=== PATIENT | female | born 1950 | race Caucasian/White ===

== ENCOUNTER 2017-12-16 07:51 | Emergency (ER) | payer MEDICARE, MEDICAID, SELFPAY ==
[2017-12-16 07:52] VITALS: BP 200/83; PULSE 86; RESP 24; TEMP 36.8; O2SAT 96; BMI 38.6
--- NOTE | 2017-12-16 07:55 | NURSING ---
NO OLD EKGS
--- NOTE | 2017-12-16 08:03 | EKG12_ITS ---
Test Reason : CP Blood Pressure : / mmHG Vent. Rate : 084 BPM Atrial Rate : 084 BPM P-R Int : 156 ms QRS Dur : 124 ms QT Int : 410 ms P-R-T Axes : 054 -44 039 degrees QTc Int : 484 ms Normal sinus rhythm Left axis deviation Right bundle branch block Minimal voltage criteria for LVH, may be normal variant Septal infarct , age undetermined Abnormal ECG Confirmed by AUDIE MCARTHUR, DOMINIC ([id number]), desk editor JOSE SMITH ([id number]) on 12/17/2017 2:41:45 PM Referred By: BETSY Confirmed By:DOMINIC BRONSON MD
--- NOTE | 2017-12-16 08:03 | RAD_ITS ---
STUDY: X-RAY CHEST REASON FOR EXAM: Female, 67 years old. Worsening shortness of breath. TECHNIQUE: Single AP portable view of the chest. COMPARISON: None. FINDINGS: EKG electrodes are seen. The lungs are clear and expanded. There is no demonstrated pleural abnormality. Normal size heart. Normal mediastinum and yris. Normal visualized pulmonary arteries. Normal visualized aortic arch and descending thoracic aorta. There are degenerative changes of the visualized thoracic spine. Normal visualized ribs, clavicles, and shoulders. There is no demonstrated abnormality of the visualized soft tissue structures of the upper abdomen. RAD/Chest 1 View (Portable) IMPRESSION: Normal x-ray examination of the chest. Electronically Signed: Roel Moreno MD at 8:36 EDT Tel [phone], Service support ,
--- NOTE | 2017-12-16 08:07 | ED.DCSUM_ITS ---
- ER Visit Summary Date of Service: 12/16/17 Chief Complaint: Chest pain History of Present Illness: The patient is a 67 F who presents with chest pain as well as shortness of breath. She states it started 3 days ago. It is an intermittent sharp pain in her substernal area. Nothing really makes it better or worse. She states it is mild currently but it was worse over the weekend. She also feels short of breath. She also complains of a headache at this time. She has a history of coronary artery disease. She has 2 stents placed. Last one was placed in 2017. She has been medication compliant. 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 Sometimes she states the pain goes down into her abdomen. He s tates that this is worse when she eats. Physical Examination: Vital signs reviewed. HEENT exam unremarkable. Heart is regular rate and rhythm without murmurs. Lungs are clear to auscultation. Abdomen is soft and nontender. Extremities reveal no edema. Peripheral pulses are equal. Skin exam normal. Neurologic exam normal. Test Results: EKG was sinus rhythm with a rate of 84. Nonspecific ST and T wave changes noted. Chest x-ray normal. White blood cell count 13.1. Glucose 117. Liver enzymes and lipase normal. Troponin is normal. D-dimer normal. Emergency Department Course and Treatment: She was not given aspirin because of an allergy. She was actually given a GI cocktail she feels much better. I feel that this is likely gastritis. With a normal enzymes, as well as her EKG, I do not feel that this is cardiac in nature. I will give her omeprazole that she can take at home daily. She will follow-up with her primary care physician and information systems administrator Treatment Plan: [] Disposition: Discharge Impression: Gastritis This note was generated with [employer]handy[employer] dictation software. It may contain incorrect words, spelling, and punctuation that were not noted in review of the chart prior to signing ED Disposition - Plan for ED Patient: Chief Complaint: Chest Pain Referrals: [facility] Doctor,Out of [NON-STAFF] -
[2017-12-16 08:12] VITALS: O2SAT 97
[2017-12-16 08:18] LABS: Absolute Lymphocyte Count 2.55 X10^3/ul (0.83-4.51); Basophil# 0.05 X10^3/uL; Basophil% 0.4 % (0-1); Eosinophil# 0.37 X10^3/uL; Eosinophils% 2.8 % (0-5); Hematocrit 42.3 % (37-47); Hemoglobin 13.8 g/dl (12.0-15.0); Lymphocyte # 2.55 X10^3/ul (4.0); Lymphocyte % 19.5 % (19-41); Mean Corp Hgb Conc 32.6 g/gl (32-36); Mean Corpuscular Hgb 29.9 pg (27.0-32.0); Mean Corpuscular Volume 91.8 fL (81-99); Mean Platelet Vol. 10.1 fl (6.2-12.0); Monocyte% 7.6 % (0-10); Neutrophil # 9.01 X10^3/uL (2.7-7.7); Neutrophil % 68.9 % (47-70); POSITIVE COUNT NO; POSITIVE DIFFERENTIAL NO; POSITIVE MORPHOLOGY NO; Platelet Count 324 K/mm3 (150-450); RBC Distribution Width CV 13.5 % (11.6-14.6); RBC Distribution Width SD 44.5 fl (35.1-43.9); Red Blood Count 4.61 M/mm3 (4.2-5.4); White Blood Count 13.1 K/mm3 (4.4-11.0)
[2017-12-16 08:27] LABS: D-Dimer Quantitative (DVT/PE) < 0.27 FEU/ug/m (0.27-0.49)
[2017-12-16 08:29] LABS: AST(SGOT) 22 U/L (15-37); Alanine Aminotransfer ALT/SGPT 32 U/L (13-56); Albumin, Serum 3.5 g/dL (3.2-5.0); Alkaline Phosphatase 100 U/L (45-117); Bilirubin, Direct 0.13 mg/dL (0.00-0.30); Globulin 4.2 g/dL (2.2-4.2); Protein, Total 7.7 g/dL (6.4-8.2)
[2017-12-16] MEDS: Acetaminophen 500 MG Tablet 1000 MG PO (08:31)
[2017-12-16 08:35] LABS: Anion Gap 7 (5-15); BUN 11 mg/dL (7-18); BUN/Creat Ratio 12.5 RATIO (10-20); Calcium,Total 8.9 mg/dL (8.5-10.1); Chloride 104 mmol/L (98-107); Creatinine, Serum 0.88 mg/dL (0.55-1.02); EST Glomerular Filtration Rate 68 mL/min (>60); Est Glom Filt Rate - Afr Amer 82 mL/min (>60); Estimated Creatinine Clearance 49.74 ml/min; Glucose 117 mg/dL (74-106); Lipase 67 U/L (73-393); Sodium Level 138 mmol/L (136-145)
[2017-12-16 08:52] VITALS: BP 142/76; PULSE 70; RESP 18; O2SAT 94
[2017-12-16 09:00] VITALS: BP 160/73; PULSE 75; RESP 12; O2SAT 94
[2017-12-16] MEDS: Mag Hydrox/Al Hydrox/Simeth 30 ML UDC PO (09:24)
--- NOTE | 2017-12-16 09:42 | DCINST.ED_ITS ---
ED Disposition - Plan for ED Patient: Disposition: Home or Assisted Living Chief Complaint: Chest Pain Instructions: ED Gastritis Prescriptions: Omeprazole 20 mg PO DAILY #30 capsule. Referrals: [facility] Doctor,Out of [NON-STAFF] -
== END 2017-12-16 10:05 | disposition home or self-care (01) ==
PROVIDERS: Emergency Provider Emergency Medicine
DX: K29.70 Gastritis, unspecified, without bleeding (principal); R06.00 Dyspnea, unspecified; R51 Headache; I25.10 Atherosclerotic heart disease of native coronary artery without angina pectoris; I25.2 Old myocardial infarction; E11.9 Type 2 diabetes mellitus without complications; Z95.5 Presence of coronary angioplasty implant and graft; Z87.891 Personal history of nicotine dependence
CPT/HCPCS: 71045; 80048; 80076; 83690; 84484; 85025; 85379; 93005; 99285

== ENCOUNTER 2018-03-12 15:53 | Emergency (ER) | payer MEDICARE, MEDICAID, SELFPAY ==
[2018-03-12 15:54] VITALS: BP 157/99; PULSE 97; RESP 18; TEMP 37.2; O2SAT 99; BMI 36.6
--- NOTE | 2018-03-12 16:31 | ED.VISSUMM ---
- ER Visit Summary Date of Service: 03/12/18 Chief Complaint: [Cough, sore throat, congestion] History of Present Illness: The patient is a 67 F [presents to the emergency department with multiple complaints times 3 days. Patient states that she had a fever when illness for started 3 days ago as well as some chills and sweats. Patient had a headache yesterday but that is now resolved. Patient complains of sweats. She complains of a sore throat. She complains of cough that is nonproductive. She denies sick contacts. Patient moved to the area 6 months ago and does not have a primary care physician locally. Patient does have a history of coronary artery disease, diabetes, hypertension, hypothyroidism.] Physical Examination: [HEENT-PERRLA, EOMI. Cranial nerves II through XII grossly intact. TMs clear. Mucous membranes moist. No adenopathy. Cardiovascular-regular rate and rhythm without murmur or ectopy Lungs-clear to auscultation, chest wall stable without crepitus or subcu emphysema Abdomen-normoactive bowel sounds, soft, nontender, no rebound or rigidity, no peritoneal signs. Extremities-intact ?4, normal range of motion, normal pulses, atraumatic] Test Results: [None indicated] Emergency Department Course and Treatment: [Patient was dispensed an albuterol MDI] Treatment Plan: [I suspect patient likely has a viral upper respiratory infection therefore I do not feel antibiotics are indicated. Patient will be given an MDI and a prescription for Tessalon Perles] Disposition: [Discharged home in stable condition] Impression: [Viral URI ] This note was generated with Get[employer]ippy dictation software. It may contain incorrect words, spelling, and punctuation that were not noted in review of the chart prior to signing ED Disposition - Plan for ED Patient: Chief Complaint: Cold Sx Referrals: Care Physician,No Primary [Primary Care Provider] -
--- NOTE | 2018-03-12 16:33 | ED.DEP ---
ED Disposition - Plan for ED Patient: Chief Complaint: Cold Sx Instructions: ED Upper Resp Infec No Abx Tx Prescriptions: Benzonatate [Tessalon Perle] 200 mg PO TID PRN PRN #20 cap PRN Reason: Cough Referrals: Care Physician,No Primary [Primary Care Provider] - Nathan Alcantara MD [STAFF PHYSICIAN] - 3-5 Days
[2018-03-12 16:59] VITALS: PULSE 82; RESP 19; O2SAT 96
== END 2018-03-12 17:28 | disposition home or self-care (01) ==
LOC: ED 17:21
PROVIDERS: Emergency Provider Emergency Medicine
DX: J06.9 Acute upper respiratory infection, unspecified (principal); I25.10 Atherosclerotic heart disease of native coronary artery without angina pectoris; E11.9 Type 2 diabetes mellitus without complications; I10 Essential (primary) hypertension; E03.9 Hypothyroidism, unspecified; Z79.4 Long term (current) use of insulin; Z79.899 Other long term (current) drug therapy; Z87.891 Personal history of nicotine dependence
CPT/HCPCS: 99282

== ENCOUNTER 2018-03-13 07:21 | Emergency (ER) | payer MEDICARE, MEDICAID, SELFPAY ==
[2018-03-12 15:54] VITALS: BMI 36.6
[2018-03-13 07:22] VITALS: BP 192/83; PULSE 83; RESP 18; TEMP 36.9; O2SAT 97; BMI 38.5
--- NOTE | 2018-03-13 07:31 | RAD_ITS ---
STUDY: X-RAY CHEST REASON FOR EXAM: Female, 67 years old. Chest pain and cough TECHNIQUE: Single frontal view of the chest. COMPARISON: 12/16/2017 FINDINGS: The lungs are clear and expanded. There is no demonstrated pleural abnormality. Normal size heart. Normal mediastinum and yris. Normal visualized pulmonary arteries. Normal visualized aortic arch and descending thoracic aorta. Normal visualized thoracic spine. Normal visualized ribs, clavicles, and shoulders. There is no demonstrated abnormality of the visualized soft tissue structures of the upper abdomen. RAD/Chest 1 View (Portable) IMPRESSION: Normal x-ray examination of the chest. Electronically Signed: aWnder Lopez MD at 7:58 EST Tel , Service support ,
--- NOTE | 2018-03-13 07:31 | EKG12_ITS ---
Test Reason : SOB Blood Pressure : / mmHG Vent. Rate : 082 BPM Atrial Rate : 082 BPM P-R Int : 152 ms QRS Dur : 128 ms QT Int : 400 ms P-R-T Axes : 061 -46 032 degrees QTc Int : 467 ms Normal sinus rhythm Right bundle branch block Left anterior fascicular block Bifascicular block Moderate voltage criteria for LVH, may be normal variant Abnormal ECG Confirmed by DANIELLE MCARTHUR, ESTHELA ([id number]), slot editor JOSE SMITH ([id number]) on 03/17/2018 1:14:27 PM Referred By: GISSELLE Confirmed By:ESTHELA SANTOS MD
--- NOTE | 2018-03-13 07:33 | ED.VISSUMM ---
- ER Visit Summary Date of Service: 03/13/18 Chief Complaint: Nasal congestion History of Present Illness: The patient is a 67 F with nasal congestion. She was seen in this ED yesterday. It was thought that she had a viral illness. She was prescribed albuterol and Tessalon Perles. They are not helping with her symptoms. Her main concern is nasal congestion. She says she cannot breathe through her nose and it causes her difficulty sleeping. She says she did not sleep at all last night despite taking her medications. She is also complaining of some midsternal chest pain. She said this has been constant for the past 3 days. She feels it was related to coughing. She does have a history of diabetes, hypertension, and coronary disease. She never had pain like this before. It does not feel like her prior angina. Denies history of PE. Physical Examination: Hypertensive but otherwise vitals unremarkable. Afebrile. No acute distress. Sitting comfortably. Breathing and speaking comfortably. HEENT exam unremarked. Heart regular. Lungs clear. Extremities nontender with no edema. Good pulses. Good skin. No diaphoresis or pallor. Test Results: EKG, chest x-ray, labs pending Emergency Department Course and Treatment: I believe the patient likely has an upper respiratory infection. It seems after speaking with her that her main concern is nasal congestion. She has not taken anything for nasal congestion. She was treated with Afrin here. Although her chest pain is atypical and likely related to bronchitis or a viral infection, given her risk factors, I did check EKG, chest x-ray, labs. Will reassess. Workup is unremarkable. Patient feels better after Afrin. Breathing more comfortably. Repeat blood pressure 140/73. White count 17.6, but otherwise workup normal. Patient will continue Afrin at home. Repeat blood pressure 140/73, heart rate 76, respiratory rate 16. Patient has no other signs of sepsis. She did request antibiotics. After discussion of the risks, she would like to try antibiotics. Will prescribe doxycycline. Return for any new or worsening issues. Treatment Plan: As above Disposition: Discharge Impression: 1. Acute bronchitis 2. Leukocytosis This note was generated with [employer] software. It may contain incorrect words, spelling, and punctuation that were not noted in review of the chart prior to signing ED Disposition - Plan for ED Patient: Chief Complaint: Shortness of Breath Referrals: Care Physician,No Primary [Primary Care Provider] -
[2018-03-13] MEDS: Oxymetazoline 0.05% 1 SPRAY SPRAY.BTL 2 SPRAY NASAL (08:04)
[2018-03-13 08:06] VITALS: BP 140/73; PULSE 76; RESP 16; TEMP 36.6; O2SAT 95; O2SAT 96
[2018-03-13 08:09] LABS: Absolute Lymphocyte Count 2.66 X10^3/ul (0.83-4.51); Absolute Neutrophil Count 12.9 X10^3/uL (2.0-7.7); Basophil# 0.05 X10^3/uL; Basophil% 0.3 % (0-1); Eosinophil# 0.36 X10^3/uL; Hematocrit 43.2 % (37-47); Lymphocyte # 2.66 X10^3/ul (4.0); Lymphocyte % 15.1 % (19-41); Mean Corp Hgb Conc 32.4 g/gl (32-36); Mean Corpuscular Volume 92.7 fL (81-99); Mean Platelet Vol. 10.2 fl (6.2-12.0); Monocyte# 1.51 X10^3/uL; Monocyte% 8.6 % (0-10); Neutrophil # 12.92 X10^3/uL (2.7-7.7); Neutrophil % 73.4 % (47-70); Platelet Count 292 K/mm3 (150-450); RBC Distribution Width CV 13.3 % (11.6-14.6); RBC Distribution Width SD 45.3 fl (35.1-43.9); Red Blood Count 4.66 M/mm3 (4.2-5.4); White Blood Count 17.6 K/mm3 (4.4-11.0)
[2018-03-13 08:11] LABS: Differential Indicated SCAN CRITERIA MET; POSITIVE COUNT NO; POSITIVE DIFFERENTIAL YES; POSITIVE MORPHOLOGY NO
[2018-03-13 08:23] LABS: Anion Gap 7 (5-15); BUN 14 mg/dL (7-18); BUN/Creat Ratio 16.8 RATIO (10-20); Calcium,Total 9.3 mg/dL (8.5-10.1); Chloride 101 mmol/L (98-107); Creatinine, Serum 0.83 mg/dL (0.55-1.02); EST Glomerular Filtration Rate 73 mL/min (>60); Est Glom Filt Rate - Afr Amer 88 mL/min (>60); Estimated Creatinine Clearance 52.73 ml/min; Glucose 128 mg/dL (74-106); Potassium 4.3 mmol/L (3.5-5.1); Sodium Level 136 mmol/L (136-145)
--- NOTE | 2018-03-13 08:40 | ED.DEP ---
ED Disposition - Plan for ED Patient: Chief Complaint: Shortness of Breath Instructions: ED Upper Resp Infec Abx Tx Prescriptions: Doxycycline 100 mg PO BID #14 cap
[2018-03-13 08:56] VITALS: BP 143/68; PULSE 82; RESP 17; O2SAT 96
[2018-03-14 14:17] LABS: Pathologist Review Reviewed
== END 2018-03-13 08:57 | disposition home or self-care (01) ==
PROVIDERS: Emergency Provider Emergency Medicine
DX: J20.9 Acute bronchitis, unspecified (principal); D72.829 Elevated white blood cell count, unspecified; I45.10 Unspecified right bundle-branch block; I44.4 Left anterior fascicular block; I25.10 Atherosclerotic heart disease of native coronary artery without angina pectoris; E11.9 Type 2 diabetes mellitus without complications; I10 Essential (primary) hypertension; E03.9 Hypothyroidism, unspecified; Z79.4 Long term (current) use of insulin; Z79.899 Other long term (current) drug therapy; Z87.891 Personal history of nicotine dependence
CPT/HCPCS: 71045; 80048; 84484; 85025; 93005; 99284; A4216

== ENCOUNTER 2018-09-02 15:19 | Emergency (ER) | payer MEDICARE, MEDICAID, SELFPAY ==
[2018-09-02 15:19] VITALS: BP 159/72; PULSE 91; RESP 18; TEMP 36.4; O2SAT 96; BMI 38.5
--- NOTE | 2018-09-02 15:58 | EKG12_ITS ---
Test Reason : DIZZINESS Blood Pressure : / mmHG Vent. Rate : 077 BPM Atrial Rate : 077 BPM P-R Int : 158 ms QRS Dur : 126 ms QT Int : 424 ms P-R-T Axes : 051 -52 017 degrees QTc Int : 479 ms Normal sinus rhythm Right bundle branch block Left anterior fascicular block Bifascicular block Minimal voltage criteria for LVH, may be normal variant Abnormal ECG Confirmed by STEFANY ÁLVAREZ ([id number]), movie editor JANEL MCCLURE ([id number]) on 09/08/2018 10:15:28 AM Referred By: DEBBIE Confirmed By:STEFANY ÁLVAREZ
[2018-09-02 16:58] LABS: Anion Gap 6 (5-15); BUN 16 mg/dL (7-18); BUN/Creat Ratio 16.3 RATIO (10-20); Calcium,Total 9.3 mg/dL (8.5-10.1); Chloride 104 mmol/L (98-107); Creatinine, Serum 0.98 mg/dL (0.55-1.02); EST Glomerular Filtration Rate 60 mL/min (>60); Est Glom Filt Rate - Afr Amer 73 mL/min (>60); Estimated Creatinine Clearance 44.66 ml/min; Glucose 147 mg/dL (74-106); Potassium 4.3 mmol/L (3.5-5.1); Sodium Level 139 mmol/L (136-145)
[2018-09-02 16:59] LABS: Basophil# 0.03 X10^3/uL; Basophil% 0.2 % (0-1); Eosinophil# 0.26 X10^3/uL; Hematocrit 44.1 % (37-47); Hemoglobin 14.3 g/dl (12.0-15.0); Lymphocyte % 21.7 % (19-41); Mean Corp Hgb Conc 32.4 g/gl (32-36); Mean Corpuscular Volume 92.5 fL (81-99); Mean Platelet Vol. 10.4 fl (6.2-12.0); Monocyte# 0.69 X10^3/uL; Monocyte% 5.4 % (0-10); Neutrophil # 9.01 X10^3/uL (2.7-7.7); Neutrophil % 69.9 % (47-70); Platelet Count 313 K/mm3 (150-450); RBC Distribution Width CV 13.7 % (11.6-14.6); RBC Distribution Width SD 45.8 fl (35.1-43.9); Red Blood Count 4.77 M/mm3 (4.2-5.4); White Blood Count 12.9 K/mm3 (4.4-11.0)
[2018-09-02 17:04] VITALS: BP 152/78; PULSE 80; RESP 14; O2SAT 97
[2018-09-02 17:10] LABS: Partial Thromboplast Time 26.9 Seconds (24.1-36.2); Prothrombin Time (Protime)PT. 12.7 SECONDS (11.7-14.9)
--- NOTE | 2018-09-02 17:13 | ED.VISSUMM ---
- ER Visit Summary Date of Service: 09/02/18 Chief Complaint: Dizziness and bilateral leg swelling History of Present Illness: The patient is a 67 F who presents with dizziness and bilateral lower extremity swelling that has been getting worse over the past 3 days. Patient states she has some cramping pain in her calves posteriorly that come and go. Patient describes it as a annoying pain. Patient states nothing makes it better or worse. Patient states her dizziness feels like a lightheadedness that is worse when she stands up. Patient denies any hearing changes. Patient denies any spinning sensation. Patient denies any headaches. Patient states she feels slightly weak when she first stands up. Physical Examination: Vital signs are stable. Patient is afebrile. Patient is in no acute distress. Oral mucosa is pink and moist. Neck is supple. Trachea is midline. There is no JVD noted. Heart was regular rate and rhythm. Lungs are clear and equal bilaterally. Abdomen is soft. Bowel sounds are normal. There is no tenderness. There is no guarding or rebound noted. Cranial nerves II through XII are intact. There are no focal motor or sensory deficits noted. Extremities are intact. There is no edema over the lower extremities. There is no calf tenderness noted. Test Results: EKG showed normal sinus rhythm with a rate of 77. There are no acute ST or T wave changes. There is a right bundle branch block and left anterior fascicular block noted. There is some left ventricular hypertrophy noted. This was unchanged compared to previous EKG dated 03/13/2018. CBC, basic metabolic profile, PT with INR, and PTT were obtained and were all essentially within normal limits. D-dimer was less than 0.27. Emergency Department Course and Treatment: Patient felt better on reevaluation. Patient was able to ambulate without difficulty. Orthostatic vital signs were obtained and were normal. Patient was instructed to follow-up with her primary care physician in 5 to 7 days. Patient understood and was agreeable with the plan. All questions were answered. Disposition: Discharge home Impression: Dizziness This note was generated with [employer] software. It may contain incorrect words, spelling, and punctuation that were not noted in review of the chart prior to signing ED Disposition - Plan for ED Patient: Disposition: Home or Assisted Living Diagnosis: Dizziness Instructions: DIZZINESS, Unk Cause Additional Instructions: Follow-up with your primary care physician in 5 to 7 days for further evaluation. Return to the emergency department if worse in any way.
[2018-09-02 17:14] LABS: POSITIVE COUNT NO; POSITIVE DIFFERENTIAL NO; POSITIVE MORPHOLOGY NO
--- NOTE | 2018-09-02 17:20 | RAD_ITS ---
STUDY: X-RAY CHEST REASON FOR EXAM: Female, 67 years old. Chest pain TECHNIQUE: PA and lateral views of the chest COMPARISON: X-Ray Chest March 13, 2018 FINDINGS: The lungs are clear. There are no pleural effusions. There is no pneumothorax. The heart is normal in size. The visualized osseous structures are within normal limits. RAD/Chest PA and Lateral IMPRESSION: No acute thoracic pathology. Electronically Signed: Malachi Shelby, at 17:40 EDT Tel , Service support ,
[2018-09-02 18:11] LABS: D-Dimer Quantitative (DVT/PE) < 0.27 FEU/ug/m (0.27-0.49)
--- NOTE | 2018-09-02 18:12 | NURSING ---
CALLED [facility], TALKED TO JACINTA. SHE CONTACTED SOMEONE AND WAS TOLD THEY WOULD PLACE HER TONIGHT.
[2018-09-02 19:00] VITALS: BP 118/68; PULSE 72; RESP 16; O2SAT 96
[2018-09-02 19:44] VITALS: BP 112/66; BP 116/68; BP 118/68; PULSE 70; PULSE 72; PULSE 74
[2018-09-02 19:45] VITALS: BP 116/68
== END 2018-09-02 19:46 | disposition home or self-care (01) ==
PROVIDERS: Emergency Provider Emergency Medicine
DX: R42 Dizziness and giddiness (principal); M79.89 Other specified soft tissue disorders; R68.83 Chills (without fever); R07.9 Chest pain, unspecified; R06.00 Dyspnea, unspecified; M54.9 Dorsalgia, unspecified; R53.1 Weakness; I45.10 Unspecified right bundle-branch block; I44.4 Left anterior fascicular block; I51.7 Cardiomegaly; I25.10 Atherosclerotic heart disease of native coronary artery without angina pectoris; E11.9 Type 2 diabetes mellitus without complications; E03.9 Hypothyroidism, unspecified; Z79.4 Long term (current) use of insulin; Z79.899 Other long term (current) drug therapy
CPT/HCPCS: 71046; 80048; 85025; 85379; 85610; 85730; 93005; 99285; A4216

== ENCOUNTER 2019-04-12 18:46 | Emergency (ER) | payer MEDICARE, MEDICAID, SELFPAY ==
[2019-04-12 18:47] VITALS: BP 153/80; PULSE 116; RESP 18; TEMP 37.3; O2SAT 93; BMI 36.6
--- NOTE | 2019-04-12 20:20 | RAD_ITS ---
STUDY: X-RAY CHEST REASON FOR EXAM: Female, 68 years old. Cold like symptoms since Saturday. TECHNIQUE: PA and lateral views of the chest. COMPARISON: September 02, 2018. FINDINGS: The lungs are clear and expanded. There is no demonstrated pleural abnormality. Normal size heart. Normal mediastinum and yris. Normal visualized pulmonary arteries. Normal visualized aortic arch and descending thoracic aorta. Normal visualized thoracic spine. Normal visualized ribs, clavicles, and shoulders. There is no demonstrated abnormality of the visualized soft tissue structures of the upper abdomen. RAD/Chest PA and Lateral IMPRESSION: No acute cardiopulmonary disease or major interval change. Electronically Signed: Carloz Guevara DO at 20:57 EST Tel [phone], Service support ,
--- NOTE | 2019-04-12 20:22 | ED.DCSUM_ITS ---
History of Present Illness Chief Complaint: Cold Sx Informant: Patient Onset: Days - 2 days Context: Gradual Onset Current Severity: Mild Maximum Severity: Moderate Narrative: Patient presents with flulike symptoms that are been ongoing for the past day and a half. She describes body aches, sore throat, mild cough. She does not believe she has had a fever but states that she will break out in sweats. She did not get a flu shot. - Past Medical History (1) Hypertension Status: Chronic (2) Myocardial infarction Status: Chronic (3) H/O heart artery stent Status: Chronic (4) Diabetes Status: Chronic (5) Hypothyroid Status: Chronic Past Medical History - Allergies and Home Meds Allergies/Adverse Reactions: Allergies dulaglutide [From Trulicity] Allergy (Verified 09/02/18 15:21) Hives glipizide Allergy (Verified 09/02/18 15:21) Hives metformin Allergy (Verified 09/02/18 15:21) Hives Penicillins [PCN] Allergy (Verified 09/02/18 15:21) Hives Primary Care Physician: Care Physician,No Primary [Primary Care Provider] - Prior records reviewed: Yes Smoking Status: Former smoker Review of Systems General: Reports: Sweats Eyes: Denies: Visual changes - bilaterally ENT: Reports: Sore throat Cardiovascular: Denies: Chest pain Respiratory: Reports: Dyspnea, Cough. Denies: Sputum Gastrointestinal: Reports: Nausea. Denies: Vomiting Musculoskeletal: Reports: Myalgias Skin: Denies: Rash Neurological: Reports: Headache Allergy: Denies: Uticaria Physical Exam Vital Signs/Narrative: Vital Signs Temp Pulse Resp BP Pulse Ox 04/12/19 18:47 99.1 F 116 H 18 153/80 H 93 Inital Vital Signs reviewed: Yes General: Well nourished, Well developed Head: Normocephalic ENT: Moist mucous membranes, TM's clear Neck: Supple Cardiovascular: Regular rate, Regular rhythm Respiratory: No distress, CTA bilaterally Abdomen: Soft, Nontender, Normal bowel sounds Extremities: Nontender Skin: Normal color, No rash Neurological: Alert, Oriented x3 Psychological: Normal affect Diagnostic/Tx/Re-eval Impressions Chest X-Ray 04/12/19 20:20 IMPRESSION: No acute cardiopulmonary disease or major interval change. Electronically Signed: Carloz Guevara DO at 20:57 EST Tel [phone], Service support , 04/12/19 20:20 Chest PA and Lateral [RAD] Stat 04/12/19 20:37 Mucosa - Nose Influenza Types A,B Direct FA (LOUIE) - Final Laboratory Results 04/12/19 04/12/19 20:35 20:35 WBC 7.0 RBC 5.00 Hgb 14.8 Hct 46.2 MCV 92.4 MCH 29.6 MCHC 32.0 RDW Std Deviation 45.0 H RDW Coeff of Eveline 13.2 Plt Count 255 MPV 10.3 Immature Gran % (Auto) 2.000 H Neut % (Auto) 62.9 Lymph % (Auto) 17.6 L [place] % (Auto) 16.0 H Eos % (Auto) 0.6 Baso % (Auto) 0.9 Absolute Neuts (auto) 4.4 Absolute Lymphs (auto) 1.23 Nucleated RBC % 0 Sodium 135 L Potassium 4.2 Chloride 99 Carbon Dioxide 30.0 Anion Gap 6 BUN 13 Creatinine 1.01 Estim Creat Clear Calc 42.75 Est GFR (MDRD) Af Amer 70 Est GFR (MDRD) Non-Af 58 L BUN/Creatinine Ratio 12.9 Glucose 116 H Calcium 9.0 - Medical Decision Making Patient is given IV fluids, Zofran, and a single dose of Toradol here. On repeat evaluation she is resting comfortably. Her influenza swab is negative but she describes a viral syndrome. She is advised that this will be to run its course. She will use Tylenol at home for pain. ED Disposition - Plan for ED Patient: Disposition: Home or Assisted Living Diagnosis: Viral syndrome Instructions: VIRAL SYNDROME (Adult) Additional Instructions: Physician directory provided to assist in finding a new primary care doctor.
[2019-04-12] MEDS: Ketorolac 30 MG/ML Syringe IV (20:36)
[2019-04-12] MEDS: Ondansetron 4 MG/2 ML Vial IV (20:36)
[2019-04-12] MEDS: 0.9% Normal Saline 1,000 ML 1000 ML IV (20:38)
[2019-04-12 20:43] LABS: Absolute Lymphocyte Count 1.23 X10^3/uL (0.83-4.51); Absolute Neutrophil Count 4.4 X10^3/uL (2.0-7.7); Basophil# 0.06 X10^3/uL; Basophil% 0.9 % (0-1); Eosinophil# 0.04 X10^3/uL; Eosinophils% 0.6 % (0-5); Hematocrit 46.2 % (37-47); Hemoglobin 14.8 g/dL (12.0-15.0); Lymphocyte # 1.23 X10^3/ul (4.0); Lymphocyte % 17.6 % (19-41); Mean Corpuscular Hgb 29.6 pg (27.0-32.0); Mean Corpuscular Volume 92.4 fL (81-99); Mean Platelet Vol. 10.3 fl (6.2-12.0); Monocyte# 1.12 X10^3/uL; NRBC Flagged by Analyzer 0 % (0-5); Neutrophil # 4.39 X10^3/uL (2.7-7.7); Neutrophil % 62.9 % (47-70); Platelet Count 255 K/mm3 (150-450); RBC Distribution Width CV 13.2 % (11.6-14.6)
[2019-04-12 21:00] LABS: Anion Gap 6 (5-15); BUN 13 mg/dL (7-18); BUN/Creat Ratio 12.9 RATIO (10-20); Chloride 99 mmol/L (98-107); Creatinine, Serum 1.01 mg/dL (0.55-1.02); EST Glomerular Filtration Rate 58 mL/min (>60); Est Glom Filt Rate - Afr Amer 70 mL/min (>60); Estimated Creatinine Clearance 42.75 ml/min; Glucose 116 mg/dL (74-106); Potassium 4.2 mmol/L (3.5-5.1); Sodium Level 135 mmol/L (136-145)
[2019-04-12 21:55] VITALS: BP 137/64; PULSE 82; RESP 18; O2SAT 97
== END 2019-04-12 21:56 | disposition home or self-care (01) ==
PROVIDERS: Emergency Provider Emergency Medicine
DX: B34.9 Viral infection, unspecified (principal); J02.9 Acute pharyngitis, unspecified; R05 Cough; E11.9 Type 2 diabetes mellitus without complications; I10 Essential (primary) hypertension; E03.9 Hypothyroidism, unspecified; Z79.02 Long term (current) use of antithrombotics/antiplatelets; Z79.4 Long term (current) use of insulin; Z79.899 Other long term (current) drug therapy; I25.2 Old myocardial infarction; Z88.0 Allergy status to penicillin; Z87.891 Personal history of nicotine dependence; Z95.5 Presence of coronary angioplasty implant and graft
CPT/HCPCS: 71046; 80048; 85025; 87804; 96361; 96374; 96375; 99283; J7030; J2405

== ENCOUNTER 2019-04-15 07:46 | Emergency (ER) | payer MEDICARE, MEDICAID, SELFPAY ==
[2019-04-15 07:47] VITALS: BP 163/101; PULSE 86; RESP 20; TEMP 36.5; O2SAT 97; BMI 39.3
--- NOTE | 2019-04-15 08:08 | ED.VISSUMM ---
- ER Visit Summary Date of Service: 04/15/19 Chief Complaint: Shortness of breath History of Present Illness: The patient is a 68 F who presents with shortness of breath that is been getting worse over the past several days. Patient was seen here 3 days ago and had flu swabs and chest x-ray done at that time which were negative. Patient states she is not feeling any better. Patient states she has been taking Tylenol with no relief. Patient admits to a cough but denies any sputum production. Patient admits to subjective fevers and chills. Patient admits to some intermittent chest pain that she describes as cramping. Patient also admits to a mild headache and diffuse myalgias. Physical Examination: Vital signs are stable except for slightly elevated blood pressure of 163/101 and a mild tachypnea of 20. Patient is afebrile. Patient is in no acute distress. Oral mucosa is pink and moist. Neck is supple. Trachea is midline. There is no JVD. Heart was regular rate and rhythm. Lungs show diffuse expiratory wheezing. There is good respiratory effort. Abdomen is soft. Bowel sounds are normal. There is some mild lower abdominal tenderness. There is no rebound or guarding. Cranial nerves II through XII are intact. There are no focal motor or sensory deficits noted. Test Results: CBC, comprehensive metabolic profile, and urinalysis were obtained were all within normal limits. PA and lateral chest x-ray was obtained. There is no acute cardiopulmonary process. This was interpreted by the radiologist and reviewed by myself. Emergency Department Course and Treatment: Patient was given a DuoNeb aerosol here. Patient felt better on reevaluation. Patient was instructed to drink plenty of fluids. Patient was given a prescription for albuterol inhaler. Patient was instructed to follow-up with her primary care physician in 5 to 7 days. Patient was instructed that she may take ejum-[id number] Robitussin-DM as needed for her cough. Patient understood and was agreeable with the plan. All questions were answered. Disposition: Discharge home Impression: Viral upper respiratory infection This note was generated with [employer] software. It may contain incorrect words, spelling, and punctuation that were not noted in review of the chart prior to signing ED Disposition - Plan for ED Patient: Disposition: Home or Assisted Living Diagnosis: Viral upper respiratory tract infection with cough Instructions: URI, Viral, No Abx (Adult) Prescriptions: Albuterol Inhaler [Ventolin Hfa] 2 puff INHALATION Q4H PRN PRN #1 inhaler PRN Reason: Wheezing Prescription Printed Referrals: July Brown DO [Primary Care Provider] - 5-7 Days
[2019-04-15] MEDS: Ipratropium/Albuterol Sulfate 3 ML AMPUL.NEB INHALATION (08:24)
[2019-04-15 08:27] LABS: Absolute Lymphocyte Count 1.77 X10^3/uL (0.83-4.51); Absolute Neutrophil Count 5.1 X10^3/uL (2.0-7.7); Basophil# 0.03 X10^3/uL; Basophil% 0.4 % (0-1); Eosinophils% 2.5 % (0-5); Hematocrit 43.3 % (37-47); Hemoglobin 13.9 g/dL (12.0-15.0); Lymphocyte # 1.77 X10^3/ul (4.0); Lymphocyte % 22.2 % (19-41); Mean Corp Hgb Conc 32.1 g/dL (32-36); Mean Corpuscular Hgb 29.7 pg (27.0-32.0); Mean Corpuscular Volume 92.5 fL (81-99); Mean Platelet Vol. 10.1 fl (6.2-12.0); Monocyte# 0.78 X10^3/uL; Monocyte% 9.8 % (0-10); NRBC Flagged by Analyzer 0 % (0-5); Neutrophil # 5.13 X10^3/uL (2.7-7.7); Neutrophil % 64.2 % (47-70); Platelet Count 229 K/mm3 (150-450); RBC Distribution Width SD 44.2 fl (35.1-43.9); Red Blood Count 4.68 M/mm3 (4.2-5.4)
[2019-04-15 08:31] LABS: Mucous, Urine 0 SEEN /hpf (<or=2+); Red Blood Cells-Urine 0 SEEN /hpf (0-5)
[2019-04-15 08:34] VITALS: PULSE 88; RESP 18
[2019-04-15 08:41] LABS: ALB/GLOB Ratio 0.8 RATIO (0.9-2.4); AST(SGOT) 18 U/L (15-37); Alanine Aminotransfer ALT/SGPT 26 U/L (13-56); Albumin, Serum 3.4 g/dL (3.2-5.0); Alkaline Phosphatase 86 U/L (45-117); Anion Gap 2 (5-15); BUN 13 mg/dL (7-18); BUN/Creat Ratio 15.4 RATIO (10-20); Chloride 102 mmol/L (98-107); Creatinine, Serum 0.84 mg/dL (0.55-1.02); EST Glomerular Filtration Rate 71 mL/min (>60); Est Glom Filt Rate - Afr Amer 86 mL/min (>60); Glucose 112 mg/dL (74-106); Potassium 4.2 mmol/L (3.5-5.1); Protein, Total 7.4 g/dL (6.4-8.2); Sodium Level 135 mmol/L (136-145)
--- NOTE | 2019-04-15 08:45 | RAD_ITS ---
STUDY: X-RAY CHEST REASON FOR EXAM: Female, 68 years old. Pain in chest upon exertion and sob for approx. 1 week TECHNIQUE: PA and lateral views of the chest. COMPARISON: Comparison is made with prior study dated April 12, 2019. FINDINGS: The lungs are clear and expanded. There is no demonstrated pleural abnormality. Normal size heart. Normal mediastinum and yris. Normal visualized pulmonary arteries. Normal visualized aortic arch and descending thoracic aorta. Normal visualized thoracic spine. Normal visualized ribs, clavicles, and shoulders. There is no demonstrated abnormality of the visualized soft tissue structures of the upper abdomen. RAD/Chest PA and Lateral IMPRESSION: Normal x-ray examination of the chest. Electronically Signed: Roel Moreno, at 9:05 EST , Service support ,
[2019-04-15 08:49] LABS: Color, Urine Yellow (Yellow); Glucose, Dipstick Normal (Normal); Ketone-Dipstick Negative (Negative); Leukocyte Esterase-Dipstick Negative /ul (Negative); Nitrite-Dipstick Negative (Negative); Occult Blood-Urine Negative /ul (Negative); Protein-Dipstick Negative (Negative); Specific Gravity, Urine 1.015 (1.002-1.030); Urine Bilirubin Dipstick Negative (Negative); Urine Clarity Sl. Cloudy (Clear); Urine Urobilinogen Normal (Normal)
[2019-04-15 08:57] LABS: Bacteria RARE /hpf (None Seen); Squamous Epithelial Cells - UA 0-5 SEEN /hpf (5-10); White Blood Cells 0-5 SEEN /hpf (0-5)
== END 2019-04-15 09:37 | disposition home or self-care (01) ==
PROVIDERS: Emergency Provider Emergency Medicine
DX: J06.9 Acute upper respiratory infection, unspecified (principal); R07.9 Chest pain, unspecified; R03.0 Elevated blood-pressure reading, without diagnosis of hypertension; R06.82 Tachypnea, not elsewhere classified; I25.10 Atherosclerotic heart disease of native coronary artery without angina pectoris; E11.9 Type 2 diabetes mellitus without complications; E03.9 Hypothyroidism, unspecified; Z79.02 Long term (current) use of antithrombotics/antiplatelets; Z79.4 Long term (current) use of insulin; Z79.899 Other long term (current) drug therapy; Z95.5 Presence of coronary angioplasty implant and graft
CPT/HCPCS: 71046; 80053; 81001; 85025; 94640; 99283; A4216

== ENCOUNTER → 2020-01-12 09:11 | Outpatient (CLI) | payer MEDICARE, MEDICAID, SELFPAY ==
[2019-12-16 13:40] VITALS: BMI 39.3
--- NOTE | 2020-01-12 09:11 | US_ITS ---
STUDY: ABDOMINAL ULTRASOUND - RIGHT UPPER QUADRANT REASON FOR VISIT: Female, 69 years old RUQ PAIN [employer]SE WITH MEALS OFF AND ON YEARS TECHNIQUE: Ultrasound evaluation of the right upper quadrant was performed with real-time and static benitez-scale imaging. TECHNICAL QUALITY: Limited. Examination limited due to obesity. COMPARISON: None. FINDINGS: Liver: The liver measures 18.2 cm. There is increased echogenicity consistent with fatty infiltration. The bile ducts are within normal limits. There is hepatic color flow. The direction of portal flow is hepatopetal. There is no demonstrated mass lesion. Gallbladder: Normal distended gallbladder. The gallbladder wall measures 1.8 mm. There is a negative sonographic Correa''s sign. There is no pericholecystic fluid. There are no gallstones. Common Bile Duct (C.B.D.): The common bile duct measures 7.9 mm. Pancreas: Normal size of the head, body and tail of the pancreas. There is normal echogenicity of the pancreas. There is no demonstrated pancreatic mass or cyst. Right Kidney: Normal size of the right kidney. The right kidney measures 11.9 x 5.7 x 3.7 cm. Normal renal cortex. The right cortex measures 1.2 cm. There is no demonstrated renal mass or cyst. There is no right hydronephrosis. US/Liver IMPRESSION: Fatty liver, no discrete lesion Electronically Signed: Amando Yates MD at 10:26 EDT , Service support ,
--- NOTE | 2020-01-12 09:58 | NM_ITS ---
STUDY: HEPATOBILARY SCINTGRAPHY REASON FOR EXAM: Female, 69 years old. Abdominal pain COMPARISON STUDIES : NM - None. CR - Not available for review at this time. CT - Not available for review at this time. MR - Not available for review at this time. Ultrasound of the earlier today Technique: After the administration of 5.1 mCi of technetium 99m Choletec intravenously, multiple scintigraphic images of the abdomen were obtained. After the administration of 1.8 mcg of Kinevac intravenously, a gallbladder ejection fraction was capped later. Findings: Homogeneous uptake of radiopharmaceutical throughout the hepatic parenchyma. Prompt excretion into the biliary tree first seen on the 10 minute image. Prompt visualization of the gallbladder first seen on the 10 minute image. Passage of radiopharmaceutical from the biliary tree into the small bowel ensuring patency of the common bile duct. After the administration of cholecystokinin intravenously, gallbladder ejection fraction is calculated. The gallbladder ejection fraction is 56% which is normal. NM/Hepatobilliary Img w/Pharm Int IMPRESSION: Normal hepatobiliary scintigraphy with a gallbladder ejection fraction of 56%. Electronically Signed: Bear Kay MD at 16:06 EDT Tel , Service support ,
== END ==
PROVIDERS: PCP Internal Medicine; Referring Provider Internal Medicine; Visit Provider Internal Medicine
DX: R10.11 Right upper quadrant pain (principal); R11.2 Nausea with vomiting, unspecified
CPT/HCPCS: 76705; 78227; A9537; J2805

== ENCOUNTER → 2020-02-15 13:35 | Outpatient (CLI) | payer MEDICARE, MEDICAID, SELFPAY ==
[2019-12-16 13:40] VITALS: BMI 39.3
--- NOTE | 2020-02-15 13:37 | CT_ITS ---
STUDY: CT SOFT TISSUE NECK WITH CONTRAST REASON FOR EXAM: Female, 69 years old. RT SIDED LIP MASS X 15-20 YRS, HTN, DB, HEART STENTS RADIATION DOSAGE (If Supplied By Facility): CTDIvol = ( 20.76 ) mGy, DLP = ( 497.76 ) mGycm TECHNIQUE: The patient was scanned in a multi-detector CT scanner. High resolution transaxial imaging was performed following intravenous administration of IV 75mL Isovue-300. Sagittal and coronal images were reconstructed. Individualized dose optimization techniques were used for this CT. COMPARISON: None. FINDINGS: Normal bilateral parotid glands. 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 Normal bilateral parapharyngeal spaces. Normal bilateral carotid spaces. Normal bilateral sublingual and submandibular glands and spaces. Normal visualized nasopharynx. Normal retropharyngeal space. Normal perivertebral space. Just above the right anterolateral there is a heterogeneous enhancing mass measuring 1.8 x 1.4 cm. No other masses are identified. Normal visualized bilateral faucial tonsils. The visualized tongue, tongue base and oropharynx are normal. There are a few lymph nodes slightly prominent at the level of the carotid sheath, largest on the right measuring 1.4 x 1.1 cm and largest on the left measuring 1.8 x 1.0 cm. Small lymph nodes along the posterior cervical chain demonstrated of indeterminate clinical significance. There is no demonstrated solid or cystic mass lesion. There is no abnormal contrast enhancement. Normal epiglottis, bilateral vallecula and hypopharynx. The pre-epiglottic and paraglottic adipose spaces are normal. Normal visualized bilateral piriform sinuses, aryepiglottic folds, vocal cords, and arytenoid-cricoid articulations. Normal subglottic trachea. Nonspecific hypoattenuating nodule within the left thyroid lobe measuring approximately 1.0 x 0.7 cm. Pulmonary apices reveal groundglass opacities versus mosaic pattern which may represent pneumonia versus small airway disease. Calcified atherosclerotic disease of the carotid arteries and aortic arch demonstrated. Normal visualized paranasal sinuses. Normal visualized cervical spine. CT/Soft Tissue Neck WITH Contrast IMPRESSION: Heterogeneous mass above the anterolateral aspect of the right hip as described exact etiology indeterminate. While this could represent a heterogeneous inflammatory process, neoplasm to be excluded. If indicated, follow-up with consultation for biopsy recommended if clinically indicated. Borderline lymph node prominence in the carotid sheath region and of indeterminate clinical significance. Nonspecific hypoattenuating nodule within the left thyroid lobe which may be further characterized with ultrasound in nonacute setting if indicated. Electronically Signed: Sandra Joseph MD at 3:59 EST , Service support ,
[2020-02-15 14:00] LABS: CREATININE FINGERSTICK 0.9 mg/dL (0.55-1.02)
== END ==
PROVIDERS: PCP Internal Medicine; Referring Provider Otolaryngology; Visit Provider Otolaryngology
DX: R22.9 Localized swelling, mass and lump, unspecified (principal)
CPT/HCPCS: 70491; Q9967

== ENCOUNTER 2020-03-17 16:00 | Emergency (ER) | payer MEDICARE, MEDICAID, SELFPAY ==
[2020-02-25 14:47] VITALS: BMI 39.2
[2020-03-17 16:01] VITALS: BP 159/92; PULSE 93; RESP 16; TEMP 35.7; O2SAT 95; BMI 38.4
--- NOTE | 2020-03-17 16:15 | EKG12_ITS ---
Test Reason : SOB Blood Pressure : / mmHG Vent. Rate : 079 BPM Atrial Rate : 079 BPM P-R Int : 150 ms QRS Dur : 122 ms QT Int : 424 ms P-R-T Axes : 055 -42 034 degrees QTc Int : 486 ms Normal sinus rhythm Left axis deviation Right bundle branch block Minimal voltage criteria for LVH, may be normal variant Abnormal ECG Confirmed by AUDIE MCRATHUR, DOMINIC ([id number]), editor map ALLA LAINEZ ([id number]) on 03/21/2020 9:05:47 AM Referred By: FEDERICO Confirmed By:DOMINIC BRONSON MD
--- NOTE | 2020-03-17 16:16 | ED.VIS.GEN ---
History of Present Illness Chief Complaint: General Illness Informant: Patient Narrative: Patient is a 69-year-old female with a past medical history of CAD, diabetes, hypothyroidism who presents to the emergency department for cough, body aches, shortness of breath, chest pain. All of her symptoms started this past Saturday. No known sick exposures. Her cough has been mildly productive. No fevers or chills. She has not tried taking anything for her symptoms. She did have some nausea at the onset of symptoms but this since resolved. No change in bowels. No urinary symptoms. No rashes. She does have a headache. She has a former smoking history. She does have some shortness of breath at baseline. No history of COPD or asthma. She denies any history of DVT/PE. She is on Brilinta. No leg swelling or calf pain. Past Medical History - Allergies and Home Meds Allergies/Adverse Reactions: Allergies alogliptin Allergy (Verified 03/17/20 16:00) Hives dulaglutide [From Trulicity] Allergy (Verified 03/17/20 16:00) Hives glipizide Allergy (Verified 03/17/20 16:00) Hives metformin Allergy (Verified 03/17/20 16:00) Hives Penicillins [PCN] Allergy (Verified 03/17/20 16:00) Hives aspirin Adverse Reaction (Severe, Verified 03/17/20 16:00) blood clots canagliflozin [From Invokana] Adverse Reaction (Severe, Verified 03/17/20 16:00) abdominal pain Primary Care Physician: Elsy Noel MD [Primary Care Provider] - 3-5 Days Prior records reviewed: Yes Smoking Status: Former smoker Review of Systems General: Reports: Malaise. Denies: Chills, Fever, Sweats Eyes: Denies: Visual changes - bilaterally, Diplopia ENT: Reports: Rhinorrhea, Sore throat Cardiovascular: Reports: Chest pain. Denies: Palpitations Respiratory: Reports: Dyspnea, Cough Gastrointestinal: Denies: Abdominal pain, Nausea, Vomiting, Diarrhea Genitourinary: Denies: Dysuria, Hematuria, Frequency Musculoskeletal: Reports: Myalgias. Denies: Back pain, Extremity Pain Skin: Denies: Rash, Wounds Neurological: Reports: Headache. Denies: Weakness, Numbness Physical Exam Vital Signs/Narrative: Vital Signs Temp Pulse Resp BP Pulse Ox 03/17/20 16:01 96.3 F L 93 16 159/92 H 95 Inital Vital Signs reviewed: Yes General: Well nourished, Well developed, No Acute Distress Head: Normocephalic, Atraumatic Eyes: Perrl, EOMI ENT: Moist mucous membranes, No rhinorrhea Neck: Supple, Nontender Cardiovascular: Regular rate, Regular rhythm, No murmurs Respiratory: No distress, CTA bilaterally, Chest nontender Abdomen: Soft, Nontender, Nondistended, Normal bowel sounds Back: Nontender, Normal Inspection Extremities: Nontender, No edema. Negative for: Calf Tenderness Skin: Normal color, No rash Neurological: Alert, Oriented x3, Cranial nerves II-XII grossly intact, Normal Strength, Normal Sensation Psychological: Normal affect, Normal Mood Diagnostic/Tx/Re-eval Chest X-Ray - ED: 1 View - Single view portable x-ray interpreted by myself. No evidence of consolidation. Clear lung singer bilaterally. No pleural effusions. Normal cardiac silhouette. Normal mediastinum. No acute cardiopulmonary process. Agree with radiologist interpretation. - EKG Initial EKG Interpretation: - - Rate of 79 bpm and normal sinus rhythm. Prolonged QRS of 122 with right bundle branch block. Left axis deviation. No significant ST elevations or depressions. No T wave abnormalities. - Medical Decision Making Patient presents to the ED for multiple complaints that do sound coronavirus related. She has cough, body aches, shortness of breath and chest wall pain. Upon arrival to the emergency department she is satting in the mid 90s on room air. Does not appear to be in no acute respiratory distress. Given her history of CAD will check EKG, basic lab work and chest x-ray. Covid swab being obtained. She is given a dose of Tylenol for her body aches. Patient's lab work did not reveal any significant acute abnormality. Troponin within normal limits. Her coronavirus test did come back positive. She was able to ambulate around the emergency department did not desaturate past 93% on room air. She is a candidate for monoclonal antibody treatment so a referral has been made. I did advise her to get a pulse oximeter to keep track of her oxygen saturation at home. She is to treat her symptoms otherwise with Tylenol. Strict return precautions were discussed with her and she is agreeable with this plan. Discharged home in stable condition. All questions answered. ED Disposition - Plan for ED Patient: Disposition: Home or Assisted Living Diagnosis: COVID-19, Cough, Dyspnea, Body aches Instructions: ED - COVID Monoclonal AB Infusion ..., Coronavirus Disease 2019 (COVID-19): Caring for Yourself or Others Referrals: Elsy Noel MD [Primary Care Provider] - 3-5 Days
[2020-03-17] MEDS: Acetaminophen 325 MG Tablet 650 MG PO (16:29)
--- NOTE | 2020-03-17 16:53 | RAD_ITS ---
STUDY: X-RAY CHEST REASON FOR EXAM: Female, 69 years old. cough, sob and body aches since Wed. TECHNIQUE: AP portable COMPARISON: 04/15/2019 FINDINGS: The lungs are clear and expanded. There is no demonstrated pleural abnormality. Normal size heart. Normal mediastinum and yris. Normal visualized pulmonary arteries. Normal visualized aortic arch and descending thoracic aorta. Normal visualized thoracic spine. Normal visualized ribs, clavicles, and shoulders. There is no demonstrated abnormality of the visualized soft tissue structures of the upper abdomen. No significant change since prior exam RAD/Chest 1 View (Portable) IMPRESSION: Normal x-ray examination of the chest. Electronically Signed: Malachi Lindsay MD at 17:15 EST , Service support ,
[2020-03-17 16:59] LABS: Absolute Lymphocyte Count 1.73 X10^3/uL (0.83-4.51); Absolute Neutrophil Count 4.7 X10^3/uL (2.0-7.7); Basophil# 0.05 X10^3/uL; Basophil% 0.7 % (0-1); Eosinophil# 0.11 X10^3/uL; Eosinophils% 1.5 % (0-5); Hematocrit 46.3 % (37-47); Hemoglobin 14.9 g/dL (12.0-15.0); Lymphocyte # 1.73 X10^3/ul (4.0); Lymphocyte % 23.4 % (19-41); Mean Corp Hgb Conc 32.2 g/dL (32-36); Mean Corpuscular Hgb 29.7 pg (27.0-32.0); Mean Corpuscular Volume 92.4 fL (81-99); Mean Platelet Vol. 10.5 fl (6.2-12.0); Monocyte# 0.76 X10^3/uL; Monocyte% 10.3 % (0-10); NRBC Flagged by Analyzer 0 % (0-5); Neutrophil # 4.65 X10^3/uL (2.7-7.7); Platelet Count 268 K/mm3 (150-450); RBC Distribution Width CV 13.2 % (11.6-14.6); Red Blood Count 5.01 M/mm3 (4.2-5.4); White Blood Count 7.4 K/mm3 (4.4-11.0)
[2020-03-17 17:18] LABS: ALB/GLOB Ratio 0.9 RATIO (0.9-2.4); AST(SGOT) 21 U/L (15-37); Alanine Aminotransfer ALT/SGPT 32 U/L (13-56); Albumin, Serum 3.7 g/dL (3.2-5.0); Alkaline Phosphatase 121 U/L (45-117); Anion Gap 7 (5-15); BUN 14 mg/dL (7-18); BUN/Creat Ratio 14.4 RATIO (10-20); Chloride 100 mmol/L (98-107); Creatinine, Serum 0.97 mg/dL (0.55-1.02); EST Glomerular Filtration Rate 61 mL/min (>60); Est Glom Filt Rate - Afr Amer 73 mL/min (>60); Glucose 159 mg/dL (74-106); Potassium 4.2 mmol/L (3.5-5.1); Protein, Total 7.7 g/dL (6.4-8.2); Sodium Level 136 mmol/L (136-145)
[2020-03-17 17:28] VITALS: BP 141/58; PULSE 77; RESP 20; TEMP 36.1; O2SAT 96
[2020-03-17 18:22] VITALS: PULSE 76; RESP 16; O2SAT 96; O2SAT 97
== END 2020-03-17 18:36 | disposition home or self-care (01) ==
PROVIDERS: Emergency Provider Emergency Medicine; PCP Internal Medicine
DX: U07.1 COVID-19 (principal); I25.10 Atherosclerotic heart disease of native coronary artery without angina pectoris; E11.9 Type 2 diabetes mellitus without complications; E03.9 Hypothyroidism, unspecified; Z79.02 Long term (current) use of antithrombotics/antiplatelets; Z79.4 Long term (current) use of insulin; Z79.899 Other long term (current) drug therapy; Z87.891 Personal history of nicotine dependence
CPT/HCPCS: 71045; 80053; 84484; 85025; 87426; 93005; 99285; A4216

== ENCOUNTER 2020-03-22 12:55 | Outpatient (CLI) | payer MEDICARE, MEDICAID, SELFPAY ==
[2020-03-22 13:16] VITALS: BMI 39.3
[2020-03-22 13:22] VITALS: BP 143/64; PULSE 73; RESP 20; TEMP 37.6; O2SAT 95
[2020-03-22] MEDS: 0.9% Saline Lock 10 ML Syringe IV (13:39)
[2020-03-22 14:10] VITALS: BP 113/57; PULSE 60; RESP 20; TEMP 36.7; O2SAT 97
[2020-03-22 14:40] VITALS: BP 128/55; PULSE 64; RESP 18; TEMP 36.9; O2SAT 97
[2020-03-22 15:00] VITALS: BP 128/55; PULSE 69; RESP 18; TEMP 36.9; O2SAT 96
[2020-03-22 15:30] VITALS: BP 132/68; PULSE 69; RESP 18; TEMP 36.7; O2SAT 96
[2020-03-22 16:00] VITALS: BP 144/60; PULSE 71; RESP 18; TEMP 36.8; O2SAT 98
== END 2020-03-22 16:07 | disposition home or self-care (01) ==
LOC: MS2OUT 12:58
PROVIDERS: PCP Internal Medicine; Referring Provider Nurse Practitioner Acute Care; Visit Provider Nurse Practitioner Acute Care
DX: U07.1 COVID-19 (principal)
CPT/HCPCS: 96365; 96366; J7050; M0239; Q0239

== ENCOUNTER → 2020-04-26 13:28 | Outpatient (CLI) | payer MEDICARE, MEDICAID, SELFPAY ==
[2020-04-26 14:14] LABS: Absolute Lymphocyte Count 2.47 X10^3/uL (0.83-4.51); Absolute Neutrophil Count 10.7 X10^3/uL (2.0-7.7); Basophil# 0.12 X10^3/uL; Basophil% 0.8 % (0-1); Eosinophil# 0.26 X10^3/uL; Eosinophils% 1.8 % (0-5); Hematocrit 44.6 % (37-47); Hemoglobin 14.6 g/dL (12.0-15.0); Lymphocyte # 2.47 X10^3/ul (4.0); Lymphocyte % 16.9 % (19-41); Mean Corp Hgb Conc 32.7 g/dL (32-36); Mean Corpuscular Hgb 29.9 pg (27.0-32.0); Mean Corpuscular Volume 91.4 fL (81-99); Mean Platelet Vol. 10.4 fl (6.2-12.0); Monocyte% 6.2 % (0-10); NRBC Flagged by Analyzer 0 % (0-5); Neutrophil # 10.69 X10^3/uL (2.7-7.7); Neutrophil % 73.1 % (47-70); Platelet Count 364 K/mm3 (150-450); RBC Distribution Width CV 13.2 % (11.6-14.6); RBC Distribution Width SD 44.7 fl (35.1-43.9); Red Blood Count 4.88 M/mm3 (4.2-5.4); White Blood Count 14.6 K/mm3 (4.4-11.0)
[2020-04-26 14:34] LABS: AST(SGOT) 17 U/L (15-37); Alanine Aminotransfer ALT/SGPT 25 U/L (13-56); Albumin, Serum 3.6 g/dL (3.2-5.0); Alkaline Phosphatase 104 U/L (45-117); Anion Gap 3 (5-15); BUN 17 mg/dL (7-18); BUN/Creat Ratio 19.8 RATIO (10-20); Bilirubin, Direct 0.18 mg/dL (0.00-0.30); Calcium,Total 9.2 mg/dL (8.5-10.1); Chloride 101 mmol/L (98-107); Cholesterol 163 mg/dL (200); Creatinine, Serum 0.86 mg/dL (0.55-1.02); EST Glomerular Filtration Rate 70 mL/min (>60); Est Glom Filt Rate - Afr Amer 85 mL/min (>60); Globulin 4.1 g/dL (2.2-4.2); Glucose 153 mg/dL (74-106); High Density Lipoprotein 55 mg/dL; Potassium 4.3 mmol/L (3.5-5.1); Protein, Total 7.7 g/dL (6.4-8.2); Sodium Level 136 mmol/L (136-145); Triglycerides 159 mg/dL; Very Low Density Lipoprotein 32 mg/dL (5-40)
== END ==
PROVIDERS: PCP Internal Medicine; Referring Provider Internal Medicine Cardiovascular Disease; Visit Provider Internal Medicine Cardiovascular Disease
DX: E78.5 Hyperlipidemia, unspecified (principal); I25.10 Atherosclerotic heart disease of native coronary artery without angina pectoris; I10 Essential (primary) hypertension; R06.00 Dyspnea, unspecified; I25.2 Old myocardial infarction; Z95.5 Presence of coronary angioplasty implant and graft
CPT/HCPCS: 36415; 80048; 80061; 80076; 85025

== ENCOUNTER → 2020-05-09 13:16 | Outpatient (CLI) | payer MEDICARE, MEDICAID, SELFPAY ==
[2020-05-09 13:23] LABS: Mucous, Urine 0 SEEN /hpf (<or=2+); Red Blood Cells-Urine 0 SEEN /hpf (0-5)
--- NOTE | 2020-05-09 13:35 | RAD_ITS ---
STUDY: X-RAY CHEST REASON FOR EXAM: Female, 69 years old. SOB TECHNIQUE: PA and lateral views of the chest. COMPARISON: Comparison is made with prior study dated 03/17/2020. FINDINGS: The lungs are clear and expanded. There is no demonstrated pleural abnormality. Normal size heart. Normal mediastinum and yris. Normal visualized pulmonary arteries. There is atherosclerotic calcification of the aortic arch with tortuosity. There are diffuse degenerative changes of the visualized thoracic spine. Normal visualized ribs, clavicles, and shoulders. There is no demonstrated abnormality of the visualized soft tissue structures of the upper abdomen. RAD/Chest PA and Lateral IMPRESSION: No acute abnormality is seen. Electronically Signed: Roel Moreno MD at 13:34 EST , Service support ,
[2020-05-09 14:00] LABS: Color, Urine Yellow (Yellow); Glucose, Dipstick Normal (Normal); Ketone-Dipstick Negative (Negative); Leukocyte Esterase-Dipstick 100 /ul (Negative); Nitrite-Dipstick Negative (Negative); Occult Blood-Urine Negative /ul (Negative); Protein-Dipstick Negative (Negative); Urine Bilirubin Dipstick Negative (Negative); Urine Clarity Sl. Cloudy (Clear); Urine Urobilinogen Normal (Normal)
[2020-05-09 14:37] LABS: Squamous Epithelial Cells - UA 10-25 SEEN /hpf (5-10)
[2020-05-09 14:38] LABS: Bacteria 1+ /hpf (None Seen)
[2020-05-09 14:41] LABS: Trichomonas 0-5 SEEN /hpf (None Seen)
[2020-05-09 14:43] LABS: White Blood Cells 5-10 SEEN /hpf (0-5)
== END ==
PROVIDERS: PCP Internal Medicine; Referring Provider Internal Medicine Cardiovascular Disease; Visit Provider Internal Medicine Cardiovascular Disease
DX: D72.829 Elevated white blood cell count, unspecified (principal); R06.02 Shortness of breath
CPT/HCPCS: 71046; 81001

== ENCOUNTER → 2020-05-10 07:03 | Outpatient (CLI) | payer MEDICARE, MEDICAID, SELFPAY ==
[2020-02-25 14:47] VITALS: BMI 39.2
--- NOTE | 2020-05-10 07:05 | ECHOCS_ITS ---
Reason For Study: CAD Procedure This was a 2D Doppler, Color Flow transthoracic echocardiogram. The study was technically difficult. Contrast injection was performed. Exam performed in department. Left Ventricle Normal LV size. Segmental dysfunction with preserved ejection fraction (see wall motion). The estimated ejection fraction is 65 %. Diastolic function is indeterminate. Mid-Anterior : Hypokinetic. Mid-inferoseptal : Hypokinetic. Anterior [place] : Hypokinetic. Inferior [place] : Akinetic. Lateral [place] : Hypokinetic. Septal [place] : Akinetic. Right Ventricle Normal RV size. Normal systolic function. Atria Normal left atrium. Normal right atrium. No doppler evidence for ASD. Mitral Valve There is no mitral annular calcification. Normal mitral valve. Trivial mitral valve insufficiency. Tricuspid Valve Normal tricuspid valve. Trivial tricuspid valve insufficiency. Unable to estimate RV systolic pressure/pulmonary artery pressure due to technically difficult study. Aortic Valve Trisinus/trileaflet aortic valve. Normal aortic valve. Pulmonic Valve The pulmonic valve is not well visualized. Trivial pulmonic valve insufficiency. Great Vessels Normal sized aortic root. Pericardium/Pleural Trivial pericardial effusion. There are no echocardiographic indications of cardiac tamponade. Medication Diluted definity 3ml given slow IV push to enhance endocardial definition. MMode/2D Measurements & Calculations LVIDd: 4.0 cm IVSd: 1.0 cm Ao root diam: 2.6 cm LVIDs: 2.2 cm LVPWd: 0.91 cm RVDd: 3.4 cm FS: 46.7 % LAV(MOD-bp): 33.0 ml LVAd ap4: 29.6 cm2 SV(MOD-sp4): 57.4 ml LAV(MOD-bp) Indexed: 16.8 ml/m2 EDV(MOD-sp4): 92.6 ml LAV(MOD-sp2): 23.6 ml EDV(sp4-el): 96.8 ml LAV(MOD-sp4): 44.5 ml LVAs ap4: 17.7 cm2 ESV(MOD-sp4): 35.2 ml ESV(sp4-el): 37.8 ml EF(MOD-sp4): 62.0 % EF(sp4-el): 60.9 % SV(sp4-el): 59.0 ml LA A4 area: 16.5 cm2 LA dimension(2D): 3.5 cm RA A4 area: 9.0 cm2 Doppler Measurements & Calculations MV E max elvin: 72.9 cm/sec Lat Peak E' Elvin: 4.9 cm/sec Med Peak E' Elvin: 5.1 cm/sec MV A max elvin: 95.6 cm/sec E/E' lat: 14.8 E/E' med: 14.3 MV E/A: 0.76 Ao V2 max: 123.4 cm/sec LV V1 max: 95.8 cm/sec PA V2 max: 101.6 cm/sec Ao max P.1 mmHg LV V1 max P.7 mmHg Interpretation Summary The study was technically difficult. Contrast injection was performed. Segmental dysfunction with preserved ejection fraction (see wall motion). The estimated ejection fraction is 65 %. Trivial mitral valve insufficiency. Trivial tricuspid valve insufficiency. Trivial pulmonic valve insufficiency. Trivial pericardial effusion. There are no echocardiographic indications of cardiac tamponade. Unable to estimate RV systolic pressure/pulmonary artery pressure due to technically difficult study. Diastolic function is indeterminate. Ordering Physician: Forrest Jewell Referring Physician: Elsy Noel M.D. Performed By: Tiara Arnold RDCS
--- NOTE | 2020-05-10 08:46 | STRESSREP_ITS ---
Stress Test Report Date: 05-10-2020 Procedure: Pharmacologic stress nuclear imaging study Indications: CAD; PCI; shortness of breath/dyspnea on exertion Consent: Per the patient Procedure: The patient underwent pharmacologic (Regadenoson 0.4mg ) evaluation with a peak heart rate of 97 beats per minute (63%predicted maximal heart rate) and a peak blood pressure of 150/78 mmHg. The baseline ECG demonstrated sinus rhythm; right bundle branch block pattern. The peak pharmacologic ECG demonstrated no obvious ECG changes. There was an isolated PVC during recovery. There was no complaint of chest discomfort during pharmacologic infusion or recovery. The examination was discontinued secondary to completion of protocol. Impression: 1. Pharmacologic (Regadenoson) evaluation 2. Peak pharmacologic ECG with continued right bundle branch block pattern with no obvious ECG changes. 3. There was an isolated PVC during recovery. 4. Nuclear images pending Myocardial perfusion imaging study: Technique: The patient was injected with 18.5 millicuries of technetium 99m Cardiolite and subsequently rest SPECT Cardiolite nuclear imaging was obtained in the horizontal long, vertical long, and short axis views. The patient underwent pharmacologic (Regadenoson) evaluation with a peak heart rate of 97 beats per minute (63% percent predicted maximal heart rate) and a peak blood pressure of 150/78 mmHg. The patient was injected with 44.1 millicuries of technetium 99m Cardiolite and subsequently stress SPECT Cardiolite nuclear imaging was obtained in the horizontal long, vertical long, and short axis views. A gated Cardiolite study at peak stress was obtained. Interpretation: Rest and stress SPECT Cardiolite nuclear imaging status post realignment, normalization, and attenuation correction demonstrate diminished myocardial perfusion/tracer uptake in portions of the distal anteroseptal, anteroapical, and septal apical segments without significant change between rest and stress. There are similar type findings on the resting and stress polar map images. There is end systolic thickening and brightening. The gated Cardiolite study de monstrates myocardial thickening and inward wall motion. The reported LVEF is 67%. Impression: 1. Rest and stress SPECT current nuclear imaging demonstrate myocardial perfusion changes potentially compatible with an area of previous myocardial injury/infarction involving portions of the distal anteroseptal, anteroapical, septal apical segments with no myocardial perfusion changes considered di agnostic with associated stress-induced myocardial ischemia. 2. The gated Cardiolite study reports an LVEF of 67%. This note was generated with [employer] software. It may contain incorrect words, spelling, and punctuation that were not noted in checking the note before signing.
== END ==
PROVIDERS: PCP Internal Medicine; Referring Provider Internal Medicine Cardiovascular Disease; Visit Provider Internal Medicine Cardiovascular Disease
DX: I25.10 Atherosclerotic heart disease of native coronary artery without angina pectoris (principal); I10 Essential (primary) hypertension; E78.5 Hyperlipidemia, unspecified; R06.00 Dyspnea, unspecified; I25.2 Old myocardial infarction; Z95.5 Presence of coronary angioplasty implant and graft
CPT/HCPCS: 78452; 93017; 93306; A9500; Q9957; A4216; C8929; J2785

== ENCOUNTER 2020-06-27 06:36 | Emergency (ER) | payer MEDICARE, MEDICAID, SELFPAY ==
[2020-05-30 14:44] VITALS: BMI 40.4
[2020-06-27 06:36] VITALS: BP 138/76; PULSE 89; RESP 24; TEMP 36.1; O2SAT 96; BMI 41.8
[2020-06-27 06:40] VITALS: BP 138/76; PULSE 89; RESP 24; TEMP 36.1; O2SAT 96
--- NOTE | 2020-06-27 07:13 | EKG12_ITS ---
Test Reason : SOB Blood Pressure : / mmHG Vent. Rate : 078 BPM Atrial Rate : 078 BPM P-R Int : 158 ms QRS Dur : 128 ms QT Int : 430 ms P-R-T Axes : 056 -42 030 degrees QTc Int : 490 ms Normal sinus rhythm Left axis deviation Right bundle branch block Minimal voltage criteria for LVH, may be normal variant Abnormal ECG Confirmed by AUDIE MCARTHUR, DOMINIC ([id number]), editor & co founder JANEL MCCLURE ([id number]) on 06/27/2020 2:32:38 PM Referred By: PEG Confirmed By:DOMINIC BRONSON MD
[2020-06-27 07:18] LABS: Absolute Neutrophil Count 8.2 X10^3/uL (2.0-7.7); Basophil# 0.08 X10^3/uL; Basophil% 0.7 % (0-1); Eosinophil# 0.33 X10^3/uL; Eosinophils% 2.8 % (0-5); Hematocrit 41.8 % (37-47); Hemoglobin 13.6 g/dL (12.0-15.0); Lymphocyte % 19.4 % (19-41); Mean Corp Hgb Conc 32.5 g/dL (32-36); Mean Corpuscular Volume 92.1 fL (81-99); Mean Platelet Vol. 10.3 fl (6.2-12.0); Monocyte# 0.84 X10^3/uL; Monocyte% 7.1 % (0-10); NRBC Flagged by Analyzer 0 % (0-5); Neutrophil # 8.17 X10^3/uL (2.7-7.7); Neutrophil % 69.1 % (47-70); Platelet Count 307 K/mm3 (150-450); RBC Distribution Width CV 13.2 % (11.6-14.6); RBC Distribution Width SD 44.5 fl (35.1-43.9); Red Blood Count 4.54 M/mm3 (4.2-5.4); White Blood Count 11.8 K/mm3 (4.4-11.0)
--- NOTE | 2020-06-27 07:22 | RAD_ITS ---
STUDY: X-RAY CHEST REASON FOR EXAM: Female, 69 years old. sob TECHNIQUE: AP COMPARISON: 05/09/2020 FINDINGS: The lungs are clear and expanded. There is no demonstrated pleural abnormality. Normal size heart. Normal mediastinum and yris. Normal visualized pulmonary arteries. Normal visualized aortic arch and descending thoracic aorta. Normal visualized thoracic spine. Normal visualized ribs, clavicles, and shoulders. There is no demonstrated abnormality of the visualized soft tissue structures of the upper abdomen. RAD/Chest 1 View (Portable) IMPRESSION: Nonacute portable x-ray examination of the chest. Electronically Signed: Georges Shine MD ([place]) at 8:11 EDT , Service support ,
--- NOTE | 2020-06-27 07:34 | ED.DCSUM_ITS ---
History of Present Illness Chief Complaint: Shortness of Breath Narrative: Patient presents with 3-day history of shortness of breath. It is slightly exertional. She has some chest tightness with it. She has no fever or chills she denies a cough. She has no back pain or tearing sensation. She has no pleuritic component. She has no lower extremity edema or calf pain. She has no abdominal pain. She has no nausea or vomiting. Past medical history: Pretension, hypercholesterolemia, prior cardiac disease with stents, diabetes. She recently had a stress echocardiogram with nuclear imaging which was unremarkable. Medications: Reviewed Social history: Unremarkable Review of systems: All systems negative except as indicated General: Denies: Fever Eyes: Denies: Visual changes - bilaterally ENT: Denies: Rhinorrhea, Sore throat Cardiovascular: Denies: Chest pain Respiratory: Denies: Dyspnea, Cough Gastrointestinal: Denies: Abdominal pain, Nausea, Vomiting Genitourinary: Denies: Dysuria Musculoskeletal: Denies: Myalgias Skin: Denies: Rash Neurological: Denies: Headache, no focal weakness Psych: Reports: negative Hematologic: Denies: Easy bruising, Easy bleeding Physical exam General: Patient is slightly obese, she does not appear in any distress although she does look chronically ill. Head: Normocephalic, Atraumatic Eyes: Conjunctiva not pale ENT: Moist mucous membranes Neck: Supple, Nontender, No lymphadenopathy Cardiovascular: Regular rate, Regular rhythm. No murmur. Respiratory: No distress, slightly diminished breath sounds some scant wheezing. Currently she is not tachypneic even though she was shown to be tachypneic via triage vitals. She is speaking in full sentences. Abdomen: Soft, Nontender, Nondistended Back: Nontender, Normal Inspection. Negative for: CVA tenderness Extremities: Nontender, No edema Skin: Normal color, No rash Neurological: Alert, Normal Strength, Normal Sensation Psychological: Normal affect Past Medical History - Allergies and Home Meds Allergies/Adverse Reactions: Allergies alogliptin Allergy (Verified 06/27/20 06:38) Hives dulaglutide [From Trulicity] Allergy (Verified 06/27/20 06:38) Hives glipizide Allergy (Verified 06/27/20 06:38) Hives metformin Allergy (Verified 06/27/20 06:38) Hives Penicillins [PCN] Allergy (Verified 06/27/20 06:38) Hives aspirin Adverse Reaction (Severe, Verified 06/27/20 06:38) blood clots canagliflozin [From Invokana] Adverse Reaction (Severe, Verified 06/27/20 06:38) abdominal pain Primary Care Physician: Elsy Noel MD [Primary Care Provider] - Smoking Status: Former smoker Physical Exam Vital Signs/Narrative: Vital Signs Temp Pulse Resp BP Pulse Ox 06/27/20 06:40 97 F L 89 24 H 138/76 H 96 06/27/20 06:36 97 F L 89 24 H 138/76 H 96 Diagnostic/Tx/Re-eval Chest X-Ray - ED: 1 View, Read by ED Physician, Read by Radiologist, Normal, Heart, Lungs - Rhythm Strip Rhythm Strip: Sinus Rhythm Rate: 78 Ectopy: None - EKG Initial EKG Interpretation: - - Sinus rhythm with a rate of 78. Right bundle branch pattern. Normal [place] and QTc interval. Otherwise unremarkable EKG. - Medical Decision Making Patient had normal ED work-up including a CT angiogram. Her cardiac work-up was unremarkable. She does have a history of heart disease but I am looking at a prior stress test 2 months ago which is unremarkable. This is likely lung pathology, I will follow up with pulmonology, she did smoke for quite a few years and she may have some underlying COPD. Regardless she appears well and can be safely discharged. She ambulated around the emergency department she did not desaturate her pulse ox is 96%. ED Disposition - Plan for ED Patient: Disposition: Home or Assisted Living Diagnosis: Dyspnea Instructions: ED Dyspnea Prescriptions: Albuterol Inhaler [Ventolin Hfa] 1 - 2 puff INHALATION Q4H PRN PRN #1 inhaler PRN Reason: Wheezing Transmission Status: Pending to [id number] Referrals: Elsy Noel MD [Primary Care Provider] - Jose Cotton MD [STAFF PHYSICIAN] - 3-5 Days
[2020-06-27 07:35] LABS: ALB/GLOB Ratio 0.8 RATIO (0.9-2.4); AST(SGOT) 18 U/L (15-37); Alanine Aminotransfer ALT/SGPT 28 U/L (13-56); Albumin, Serum 3.4 g/dL (3.2-5.0); Alkaline Phosphatase 117 U/L (45-117); Anion Gap 5 (5-15); BUN 15 mg/dL (7-18); BUN/Creat Ratio 17.1 RATIO (10-20); Calcium,Total 8.9 mg/dL (8.5-10.1); Chloride 106 mmol/L (98-107); Creatinine, Serum 0.88 mg/dL (0.55-1.02); EST Glomerular Filtration Rate 68 mL/min (>60); Est Glom Filt Rate - Afr Amer 83 mL/min (>60); Estimated Creatinine Clearance 48.39 ml/min; Globulin 4.1 g/dL (2.2-4.2); Glucose 164 mg/dL (74-106); Lipase 59 U/L (73-393); Protein, Total 7.5 g/dL (6.4-8.2); Sodium Level 137 mmol/L (136-145)
--- NOTE | 2020-06-27 07:41 | CT_ITS ---
STUDY: CTA CHEST REASON FOR EXAM: Female, 69 years old. Shortness of breath for 2 days RADIATION DOSAGE (If Supplied By Facility): CTDIvol = ( 12.66 ) mGy, DLP = ( 511.26 ) mGycm TECHNIQUE: The examination was performed with the intravenous administration of IV 100mL Isovue-370. Post-processing of the angiographic images was performed, with multiplanar reformation and 3D reconstruction. Individualized dose optimization techniques were used for this CT. COMPARISON: None. FINDINGS: Normal enhancement of the main pulmonary artery and right and left pulmonary arteries. Normal enhancement of the bilateral peripheral pulmonary arteries. There is no demonstrated pulmonary embolism. There is atherosclerotic calcification of the aortic arch with tortuosity. There is no demonstrated aortic dissection. Normal heart and pericardium. There are calcifications of the coronary arteries. Normal mediastinum. Normal hilar regions. Normal visualized trachea and bronchi. The lungs are well expanded. There are bandlike parenchymal changes most consistent with atelectasis of the bilateral lungs. Mild centrilobular emphysematous changes. Normal pleura. Normal chest wall structures. There are degenerative changes of thoracic spine. There is diffuse fatty infiltration of the liver. CT/CTA Chest W/WO Contrast IMPRESSION: No central or segmental pulmonary embolism. Electronically Signed: Georges Shine MD ([place]) at 8:19 EDT , Service support ,
[2020-06-27 08:11] LABS: BNP,B-Type NATRIURETIC PEPTIDE 42.7 pg/mL (0-100)
[2020-06-27] MEDS: Ipratropium/Albuterol Sulfate 3 ML AMPUL.NEB INHALATION (09:08)
[2020-06-27 09:10] VITALS: PULSE 82; RESP 18; O2SAT 96
[2020-06-27 09:35] VITALS: PULSE 84; RESP 16; O2SAT 96
== END 2020-06-27 09:37 | disposition home or self-care (01) ==
PROVIDERS: Emergency Provider Emergency Medicine; PCP Internal Medicine
DX: R06.00 Dyspnea, unspecified (principal); J44.9 Chronic obstructive pulmonary disease, unspecified; R07.89 Other chest pain; E11.9 Type 2 diabetes mellitus without complications; E78.00 Pure hypercholesterolemia, unspecified; E66.9 Obesity, unspecified; Z79.4 Long term (current) use of insulin; Z79.02 Long term (current) use of antithrombotics/antiplatelets; Z79.890 Hormone replacement therapy; Z79.899 Other long term (current) drug therapy; Z87.891 Personal history of nicotine dependence; Z95.5 Presence of coronary angioplasty implant and graft
CPT/HCPCS: 71045; 71275; 80053; 83690; 83880; 84484; 85025; 93005; 94640; 99283; Q9967; A4216

== ENCOUNTER 2020-07-12 06:11 | Day surgery (SDC) | payer MEDICARE, MEDICAID, SELFPAY ==
--- NOTE | 2020-07-12 08:05 | LIP_PTH ---
PATIENT: FELICITAS INIGUEZ [place] [facility] [id number] AGE/SX: 69/F ROOM: RE07/12/[address]: Dr. Matthew Clark MD : [id number] BED: DIS: 07/12/2020 SPEC #: [id number] RECD: 07/12/20 10:01 STATUS: CHARISMA REAdarsh #: [id number] MARIO: 07/12/20 08:[address]: Matthew Clark DEPT: SURGICAL PATHOLOGY RECD BY: Lori Murillo ENTERED: 07/12/20 10:40 SP TYPE: LIPOMA OTHR DR: Dr. Elsy Noel MD Tissues: Soft tissues, NOS Procedures: Surgery Specimen Level IV HEADER OPERATION: Lip mass excision PRE-OP DIAGNOSIS: Lip mass TISSUE SUBMITTED: Lip mass MICROSCOPIC DIAGNOSIS Lip mass, excision: Monomorphic adenoma, favor canalicular adenoma (two pieces). Negative for malignancy. SJ:vic 07/13/2020 COMMENT Clinical correlation and appropriate follow up are necessary. Case has been reviewed in consultation with Dr. Arauz who concurs with the above diagnosis. IDC:AM MICROSCOPIC DESCRIPTION Slides are reviewed. GROSS DESCRIPTION Received in fixative is one container labeled with the patient's name and designated lip mass. The specimen consists of two pieces of gleason mucosal tissue measuring 1.5 x 1.3 x 0.8 cm and 1 x 0.7 x 0.5 cm. Both pieces are inked. The smaller piece is bisected and larger piece is serially sectioned. The entire specimen is submitted in two cassettes with each piece present in one cassette. / MANISH:vic 07/12/20 TC:1 CPT: 79949
[2020-07-12 08:50] LABS: Bedside Glucose 142 mg/dL (70-110)
[2020-07-12 08:58] VITALS: BP 127/67; BP 137/87; PULSE 76; RESP 16; TEMP 36.4; O2SAT 96
[2020-07-12 09:00] VITALS: BP 102/59; BP 137/87; PULSE 77; RESP 16; O2SAT 97
--- NOTE | 2020-07-12 09:04 | DCINST_ITS ---
Discharge Instructions Outpatient Procedure Reason For Visit: EXCISION LIP MASS Follow Up Care Test Results: Test results from this visit will be discussed in further detail at your follow-up appointment, if applicable. take tylenol for postoperative pain. normal diet. follow up with dr clark in 1 month at [facility] [id number] Discharge Plan Admission Attending Provider: Griffin Clark Primary Care Provider: Elsy Noel Discharge Orders/Prescriptions Prescriptions: No Action carvedilol 3.125 MG tablet 3.125 mg PO BID RF: 0 levothyroxine 88 MCG tablet 88 mcg PO DAILY RF: 0 ergocalciferol (vitamin D2) 50,000 UNIT capsule 50,000 unit PO WE RF: 0 ticagrelor 90 MG tablet 90 mg PO BID RF: 0 insulin NPH and regular human 100 UNIT/ML insulin pen 24 unit SQ DAILY RF: 0 insulin NPH and regular human 100 UNIT/ML insulin pen 22 unit SQ QHS RF: 0 albuterol sulfate 1 INHALER inhaler 1 - 2 puff INHALATION Q4H PRN PRN (Reason: Wheezing) Qty: 1 RF: 0 Referrals: Elsy Noel MD [Primary Care Provider] - Disposition Patient Disposition: Home, self care
--- NOTE | 2020-07-12 09:06 | OP.PCM_ITS ---
Problems Associated Problem List Diagnoses (1) Mass of lip: Report of Operation Date of Procedure: 07/12/20 Pre-Operative Diagnosis: upper lip mass Post-Operative Diagnosis: upper lip mass Surgery/Procedure Performed:: excision upper lip mass Type of Anesthesia: General/Regional Specimen's removed: lip mass Drains: none Description of Procedure: on the day of the procedure, after appropriate informed consent was obtained, the patient was brought to the operating room and placed in supine position on the operating table. she was placed under general endotracheal anesthesia by the anesthesiologst. the endotracheal tube was secured, the eyes were taped. the labial buccal mucosa of the right upper lip was injected with lidocaine/epinephrine. a 2cm incision was made with a bois forte blade in the labial mucosa. the mass was circumferentially excised with an iris scissor. the bipolar was used for hemostasis. a valsalva was held by anesthesia and hemostasis was observed. the incision was closed with interrupted 4-0 chromic. the patient was awoken from anesthesia and transferred to the PACU in stable condition. Complications none
[2020-07-12 09:15] VITALS: BP 108/62; BP 137/87; PULSE 77; RESP 16; O2SAT 98
[2020-07-12 09:30] VITALS: BP 116/76; BP 137/87; PULSE 76; RESP 16; O2SAT 90
[2020-07-12 09:31] LABS: Bedside Glucose 153 mg/dL (70-110)
[2020-07-12 09:35] VITALS: BP 116/40; BP 137/87; PULSE 77; RESP 16; TEMP 37; O2SAT 95
[2020-07-12 10:29] VITALS: BP 137/87; BP 161/91; PULSE 87; RESP 16; TEMP 36.6; O2SAT 93
== END 2020-07-12 10:44 | disposition home or self-care (01) ==
LOC: SDC 08:36 → AC 08:37
PROVIDERS: PCP Internal Medicine; Referring Provider Otolaryngology; Visit Provider Otolaryngology
DX: D10.39 Benign neoplasm of other parts of mouth (principal); Z20.822 Contact with and (suspected) exposure to COVID-19; I25.10 Atherosclerotic heart disease of native coronary artery without angina pectoris; I10 Essential (primary) hypertension; E78.00 Pure hypercholesterolemia, unspecified; Z79.02 Long term (current) use of antithrombotics/antiplatelets; Z79.890 Hormone replacement therapy; Z79.4 Long term (current) use of insulin; Z79.899 Other long term (current) drug therapy; Z78.0 Asymptomatic menopausal state; I25.2 Old myocardial infarction; Z86.718 Personal history of other venous thrombosis and embolism; Z87.891 Personal history of nicotine dependence; Z95.5 Presence of coronary angioplasty implant and graft
CPT/HCPCS: 00170; 40812; 82962; 87426; 88304; 88305; C9803; J7120; J2405

== ENCOUNTER 2020-09-30 08:42 | Emergency (ER) | payer MEDICARE, MEDICAID, SELFPAY ==
[2020-09-30 08:44] VITALS: BP 182/97; PULSE 82; RESP 18; TEMP 36.5; O2SAT 95; BMI 40.8
[2020-09-30 08:56] VITALS: BP 208/129; PULSE 86; RESP 22; TEMP 36.5; O2SAT 96
--- NOTE | 2020-09-30 08:58 | RAD_ITS ---
STUDY: X-RAY CHEST REASON FOR EXAM: Female, 69 years old. Chest pain TECHNIQUE: Single AP portable view of the chest. COMPARISON: Comparison is made with prior study dated 06/27/2020. FINDINGS: EKG electrodes are seen. The lungs are clear and expanded. There is no demonstrated pleural abnormality. Normal size heart. Normal mediastinum and yris. Normal visualized pulmonary arteries. There is atherosclerotic calcification of the aortic arch with tortuosity. There are degenerative changes of the visualized thoracic spine. Normal visualized ribs, clavicles, and shoulders. There is no demonstrated abnormality of the visualized soft tissue structures of the upper abdomen. RAD/Chest 1 View (Portable) IMPRESSION: No acute abnormality is seen. Electronically Signed: Roel Moreno MD at 9:40 EDT , Service support ,
--- NOTE | 2020-09-30 08:58 | EKG12_ITS ---
Test Reason : CP/SOB Blood Pressure : / mmHG Vent. Rate : 083 BPM Atrial Rate : 083 BPM P-R Int : 156 ms QRS Dur : 128 ms QT Int : 416 ms P-R-T Axes : 050 -22 022 degrees QTc Int : 488 ms Normal sinus rhythm Right bundle branch block Abnormal ECG Confirmed by KINGA MCARTHUR, ADELA ([id number]), film editor supervisor ALLA LAINEZ ([id number]) on 10/03/2020 9:51:33 AM Referred By: MINOO Confirmed By:LEO DONATO MD
--- NOTE | 2020-09-30 09:15 | ED.VIS.DYS ---
HPI History of Present Illness Chief Complaint: Shortness of Breath Narrative Narrative: 69-year-old female presenting with intermittent chest pain x2 weeks. She is complaining of shortness of breath since yesterday. Patient states she is a previous smoker but has no history of COPD. Patient does have a cardiac history including NSTEMI, CAD, two cardiac stents. She also has cardiac risk factors of hyperlipidemia, obesity, hypertension. Patient complains of sore throat and headache since yesterday as well. She has not had a fever, body aches, chills, change in taste or smell. She has not had a COVID-19 vaccine because she is waiting for her doctor's appointment to determine if she wants it. [facility] Medical History Atherosclerotic heart disease of [place] coronary artery without angina pectoris Cardiogenic shock Carpal tunnel syndrome Diabetes Elevated WBC count Essential hypertension History of DVT (deep vein thrombosis) History of non-ST elevation myocardial infarction (NSTEMI) History of pneumonia Hyperlipemia Hypertension Hypothyroidism IBS (irritable bowel syndrome) Presence of stent in coronary artery (~04/10/16) Type 2 diabetes mellitus Home Medications ergocalciferol (vitamin D2) 50,000 unit PO WE 03/12/18 [History Last Taken Unknown] levothyroxine 88 mcg PO DAILY 03/12/18 [History Last Taken Unknown] insulin NPH and regular human 22 unit SQ QHS 07/05/20 [History Last Taken Unknown] insulin NPH and regular human 24 unit SQ DAILY 07/05/20 [History Last Taken Unknown] carvedilol 3.125 mg tablet 3.125 mg PO BID #180 tab 09/21/20 [Rx Last Taken Unknown] ticagrelor 90 mg tablet 90 mg PO BID #180 tab 09/21/20 [Rx Last Taken Unknown] Allergy/AdvReac Type Severity Reaction Status Date / Time alogliptin Allergy Hives Verified 09/30/20 08:43 dulaglutide [From Trulicity] Allergy Hives Verified 09/30/20 08:43 glipizide Allergy Hives Verified 09/30/20 08:43 metformin Allergy Hives Verified 09/30/20 08:43 Penicillins [PCN] Allergy Hives Verified 09/30/20 08:43 aspirin AdvReac Severe blood Verified 09/30/20 08:43 clots canagliflozin [From Invokana] AdvReac Severe abdominal Verified 09/30/20 08:43 pain Family History Sister Breast cancer Mother Hypertension Heart disease Myocardial infarction, Onset Age: 61 Thyroid disorder Grandmother Arthritis Seizures Father CVA (cerebral vascular accident) Brother Heart disease Myocardial infarction Sister CAD (coronary artery disease) Surgical History History of hysterectomy History of tonsillectomy History of tubal ligation Presence of coronary angioplasty implant and graft (~04/10/16) Social History Smoking Status: Former smoker alcohol intake: never substance use type: does not use caffeine: Yes Type: coffee Number of servings: 1 frequency: 1-2 times per week ROS ROS ED Constitutional Constitutional ED: Denies chills or fever(s) Eyes Eyes: Denies blurry vision or diplopia ENT ENT ED: Reports sore throat; Denies rhinorrhea Cardiovascular Cardiovascular: Reports chest pain Respiratory/Chest Respiratory/Chest: Reports dyspnea and dyspnea on exertion Gastrointestinal Gastrointestinal: Denies abdominal pain, nausea or vomiting Genitourinary Genitourinary ED: Denies dysuria or hematuria Musculoskeletal Musculoskeletal: Denies arthralgias or myalgias Integumentary Denies abscess or rash Neurologic Neurologic: Reports headache(s); Denies paresthesias Psychiatric Psychiatric: Denies anxiety or depression EXAM Physical Exam Const Vital Signs: 09/30/20 08:44 09/30/20 08:56 09/30/20 09:25 Temperature 97.7 F L 97.7 F L Temperature Source Temporal Temporal Pulse Rate 82 86 Respiratory Rate 18 22 H Respiratory Effort Short of Breath Labored Respiratory Depth Normal Respiratory Pattern Normal Blood Pressure 182/97 H 208/129 H Blood Pressure Mean 125 155 Pulse Ox 95 96 Oxygen Delivery Method Room Air Room Air Room Air 09/30/20 11:42 Temperature Temperature Source Pulse Rate 75 Respiratory Rate 14 Respiratory Effort Respiratory Depth Respiratory Pattern Blood Pressure 171/84 H Blood Pressure Mean 113 Pulse Ox 95 Oxygen Delivery Method Room Air Positive obese General Appearance ED: NAD Nutritional Appearance: obese HEENT Reports moist mucous membranes atraumatic Eyes PERRL and EOMs intact bilaterally Resp normal respiratory effort and clear to auscultation bilaterally Cardio regular rate and regular rhythm GI non-tender and non-distended Palpation: soft Extremity normal to inspection General Extremety ED: Yes edema General Extremity: edema Neuro oriented x3 Sensorium / Orientation: alert Psych mental status grossly normal Thought Process: normal thought process Skin Lesions: no lesions Rashes: no rashes MDM MDM MDM Narrative Medical decision making narrative: Patient presenting with intermittent chest pain is well is dyspnea x24 hours. Patient had EKG on arrival which on my interpretation shows normal sinus rhythm with a right bundle branch block. There are no ST elevations or depressions. There does not appear to be any significant EKG changes since 06/27/2020. Heart score is 4 currently. I will obtain cardiac work-up and D-dimer. Patient's lab work shows a slight leukocytosis at 13.8 but this is normal for her. Hemoglobin and hematocrit are stable. Renal function and electrolytes are normal. D-dimer is negative. BNP is within normal limits. Chest x-ray on my interpretation shows no acute cardiopulmonary process. Patient's presentation does not appear cardiac in nature and she has a normal EKG and negative troponin I do not believe she benefit from a second troponin. Patient at noon is reevaluated and states she is ready to go home. I feel this is reasonable. She will follow-up with her PCP. Impression: 1. Dyspnea 2. Chest pain Lab Data Labs: Laboratory Results - last 24 hr 09/30/20 09/30/20 09/30/20 09:10 09:10 09:10 WBC 13.8 H RBC 4.66 Hgb 14.0 Hct 43.1 MCV 92.5 MCH 30.0 MCHC 32.5 RDW Std Deviation 43.2 RDW Coeff of Eveline 12.8 Plt Count 325 MPV 10.5 Immature Gran % (Auto) 0.800 Neut % (Auto) 72.4 H Lymph % (Auto) 18.3 L [place] % (Auto) 6.1 Eos % (Auto) 1.9 Baso % (Auto) 0.5 Absolute Neuts (auto) 10.0 H Absolute Lymphs (auto) 2.53 Nucleated RBC % 0 D-Dimer Quant (PE/DVT) <= 0.27 Sodium 136 Potassium 3.9 Chloride 101 Carbon Dioxide 29.0 Anion Gap 6 BUN 19 H Creatinine 0.85 Estim Creat Clear Calc 50.10 Est GFR (MDRD) Af Amer 85 Est GFR (MDRD) Non-Af 70 BUN/Creatinine Ratio 22.3 H Glucose 129 H Calcium 9.4 Troponin I High Sens 11.8 B-Natriuretic Peptide 09/30/20 09:10 WBC RBC Hgb Hct MCV MCH MCHC RDW Std Deviation RDW Coeff of Eveline Plt Count MPV Immature Gran % (Auto) Neut % (Auto) Lymph % (Auto) [place] % (Auto) Eos % (Auto) Baso % (Auto) Absolute Neuts (auto) Absolute Lymphs (auto) Nucleated RBC % D-Dimer Quant (PE/DVT) Sodium Potassium Chloride Carbon Dioxide Anion Gap BUN Creatinine Estim Creat Clear Calc Est GFR (MDRD) Af Amer Est GFR (MDRD) Non-Af BUN/Creatinine Ratio Glucose Calcium Troponin I High Sens B-Natriuretic Peptide 47.5 Radiography Diagnostic Testing: Radiology Impression Chest X-Ray 09/30/20 08:58 IMPRESSION: No acute abnormality is seen. Electronically Signed: Roel Moreno MD at 9:40 EDT , Service support , Discharge Plan Triage Chief Complaint: Shortness of Breath ED Provider: Raji Ayala Dx/Rx/DC Orders Instructions: ED Chest Pain, Noncardiac, ED Weakness (Uncertain Cause) Prescriptions: No Action levothyroxine 88 MCG tablet 88 mcg PO DAILY RF: 0 ergocalciferol (vitamin D2) 50,000 UNIT capsule 50,000 unit PO WE RF: 0 insulin NPH and regular human 100 UNIT/ML insulin pen 24 unit SQ DAILY RF: 0 insulin NPH and regular human 100 UNIT/ML insulin pen 22 unit SQ QHS RF: 0 ticagrelor 90 mg tablet 90 mg PO BID Qty: 180 RF: 3 carvedilol 3.125 mg tablet 3.125 mg PO BID Qty: 180 RF: 3 Primary Care Provider: Elsy Noel Referrals: Elsy Noel MD [Primary Care Provider] - Disposition Disposition: Home, Self Care
[2020-09-30 09:22] LABS: Absolute Lymphocyte Count 2.53 X10^3/uL (0.83-4.51); Basophil# 0.07 X10^3/uL; Basophil% 0.5 % (0-1); Eosinophil# 0.26 X10^3/uL; Eosinophils% 1.9 % (0-5); Hematocrit 43.1 % (37-47); Lymphocyte # 2.53 X10^3/ul (0.83-4.51); Lymphocyte % 18.3 % (19-41); Mean Corp Hgb Conc 32.5 g/dL (32-36); Mean Corpuscular Volume 92.5 fL (81-99); Mean Platelet Vol. 10.5 fl (6.2-12.0); Monocyte# 0.84 X10^3/uL; Monocyte% 6.1 % (0-10); NRBC Flagged by Analyzer 0 % (0-5); Neutrophil # 9.98 X10^3/uL (2.7-7.7); Neutrophil % 72.4 % (47-70); Platelet Count 325 K/mm3 (150-450); RBC Distribution Width CV 12.8 % (11.6-14.6); RBC Distribution Width SD 43.2 fl (35.1-43.9); Red Blood Count 4.66 M/mm3 (4.2-5.4); White Blood Count 13.8 K/mm3 (4.4-11.0)
[2020-09-30 09:25] VITALS: O2SAT 97
[2020-09-30 09:38] LABS: D-Dimer Quantitative (DVT/PE) <= 0.27 FEU/ug/m (0.27-0.49)
[2020-09-30 09:42] LABS: Anion Gap 6 (5-15); BNP,B-Type NATRIURETIC PEPTIDE 47.5 pg/mL (0-100); BUN 19 mg/dL (7-18); BUN/Creat Ratio 22.3 RATIO (10-20); Calcium,Total 9.4 mg/dL (8.5-10.1); Chloride 101 mmol/L (98-107); Creatinine, Serum 0.85 mg/dL (0.55-1.02); EST Glomerular Filtration Rate 70 mL/min (>60); Est Glom Filt Rate - Afr Amer 85 mL/min (>60); Glucose 129 mg/dL (74-106); Potassium 3.9 mmol/L (3.5-5.1); Sodium Level 136 mmol/L (136-145); Troponin-I HS 11.8 pg/mL (3.0-53.7)
[2020-09-30 11:42] VITALS: BP 171/84; PULSE 75; RESP 14; O2SAT 95
[2020-09-30 12:13] VITALS: BP 154/82; PULSE 71; RESP 16; O2SAT 96
== END 2020-09-30 12:13 | disposition home or self-care (01) ==
PROVIDERS: Emergency Provider Student in an Organized Health Care Education/Training Program; PCP Internal Medicine
DX: R06.00 Dyspnea, unspecified (principal); R07.9 Chest pain, unspecified; I25.10 Atherosclerotic heart disease of native coronary artery without angina pectoris; E11.9 Type 2 diabetes mellitus without complications; I10 Essential (primary) hypertension; E78.5 Hyperlipidemia, unspecified; E03.9 Hypothyroidism, unspecified; K58.9 Irritable bowel syndrome, unspecified; E66.9 Obesity, unspecified; Z79.4 Long term (current) use of insulin; Z79.02 Long term (current) use of antithrombotics/antiplatelets; Z79.890 Hormone replacement therapy; Z79.899 Other long term (current) drug therapy; I25.2 Old myocardial infarction; Z87.891 Personal history of nicotine dependence; Z87.01 Personal history of pneumonia (recurrent); Z86.718 Personal history of other venous thrombosis and embolism; Z95.5 Presence of coronary angioplasty implant and graft
CPT/HCPCS: 71045; 80048; 83880; 84484; 85025; 85379; 87426; 93005; 99284; A4216

== ENCOUNTER 2021-04-25 11:27 | Emergency (ER) | payer MEDICARE, MEDICAID, SELFPAY ==
[2021-04-25] VITALS (7 sets, daily range): BP systolic 143–195; BP diastolic 59–126; PULSE 80–95; RESP 13–26; TEMP 35.6; O2SAT 96–98; BMI 41.1
--- NOTE | 2021-04-25 11:58 | CT_ITS ---
STUDY: CTA CHEST, ABDOMEN T PELVIS WITH CONTRAST REASON FOR EXAM: Female, 70 years old. Chest and back pain RADIATION DOSAGE (If Supplied By Facility): CTDIvol = ( 22.74 ) mGy, DLP = ( 1161.54 ) mGycm TECHNIQUE: Transaxial imaging was performed following intravenous administration of IV 100mL Isovue-370. Individualized dose optimization techniques were used for this CT. COMPARISON: Comparison is made with prior CT of the chest dated 06/27/2020. FINDINGS: CHEST Stable small benign-appearing bilateral axillary Stable 5.7 mm noncalcified nodule in the left upper lobe as seen on axial image #154 and coronal image #172. There is no demonstrated pleural abnormality. There are calcifications of the coronary arteries. There are multiple small lymph nodes within the mediastinum, which are normal in size and morphology most compatible with reactive lymph hyperplasia. Normal hilar regions. Normal unenhanced pulmonary arteries. There is atherosclerotic calcification of the aortic arch with tortuosity and elongation of the aortic arch and descending thoracic aorta. There are degenerative changes of the thoracic spine. There is no demonstrated abnormality of the visualized upper abdomen. ABDOMEN There is decreased attenuation of the liver consistent with steatosis. Hepatomegaly. The gallbladder is contracted. Normal spleen. Normal pancreas. Normal bilateral adrenal glands. Normal right kidney. Normal left kidney. There is a small hiatal hernia. Normal small intestine. There are multiple colonic diverticula consistent with diverticulosis. The patient is status post appendectomy. Normal abdominal aorta. Normal inferior vena cava. There is borderline retroperitoneal lymphadenopathy with enlarged nodes no greater than 10mm in the short axis diameter. There is a small umbilical hernia containing fat. There are mild degenerative changes of the visualized lumbar spine. PELVIS Normal urinary bladder. The patient is status post hysterectomy. Normal visualized small intestine. Normal visualized colon. There is no pelvic fluid. There is no pelvic lymphadenopathy or mass lesion. There is diffuse atherosclerotic calcification of the pelvic arteries. CT/CTA Chst, Abd, Pel W and/or WO IMPRESSION: Stable 5.7 mm nodule in the left upper lobe. Diffuse fatty infiltration of the liver. Electronically Signed: Roel Moreno MD at 13:50 EST ,
--- NOTE | 2021-04-25 11:59 | EKG12_ITS ---
Test Reason : CP Blood Pressure : / mmHG Vent. Rate : 086 BPM Atrial Rate : 086 BPM P-R Int : 150 ms QRS Dur : 124 ms QT Int : 414 ms P-R-T Axes : 051 -10 030 degrees QTc Int : 495 ms Normal sinus rhythm Right bundle branch block Abnormal ECG Confirmed by AUDIE MCARTHUR, DOMINIC ([id number]), society editor ALLA LAINEZ ([id number]) on 04/26/2021 9:44:17 AM Referred By: JASON Confirmed By:DOMINIC BRONSON MD
--- NOTE | 2021-04-25 12:00 | EDS_ITS ---
HPI History of Present Illness Chief Complaint: Chest Pain Informant: patient Onset/Context/Timing Onset: Days (2 days) Context: Gradual Onset Timing: Waxes and wanes Current Severity: Mild Maximum Severity: Moderate Narrative Narrative: Patient presents with multiple complaints. She complains of intermittent chest pain as she described his left upper chest and last evening in the sternal area. She has had increased shortness of breath worse after change in position. She states for the last 2 days has had back pain going down her legs as well. She had trouble getting comfortable in bed. [facility] Medical History (Updated 04/25/21 @ 14:[address] Susana Arredondo MD) Atherosclerotic heart disease of [place] coronary artery without angina pectoris Cardiogenic shock Carpal tunnel syndrome Diabetes Elevated WBC count Essential hypertension History of DVT (deep vein thrombosis) History of non-ST elevation myocardial infarction (NSTEMI) History of pneumonia Hyperlipemia Hypertension Hypothyroidism IBS (irritable bowel syndrome) Presence of stent in coronary artery (~04/10/16) Type 2 diabetes mellitus Home Medications levothyroxine 88 mcg PO DAILY 03/12/18 [History Last Taken Unknown] insulin NPH and regular human 22 unit SQ QHS 07/05/20 [History Last Taken Unknown] insulin NPH and regular human 24 unit SQ DAILY 07/05/20 [History Last Taken Unknown] carvedilol 3.125 mg tablet 3.125 mg PO BID #180 tab 09/21/20 [Rx Last Taken Unknown] ticagrelor 90 mg tablet 90 mg PO BID #180 tab 09/21/20 [Rx Last Taken Unknown] Allergy/AdvReac Type Severity Reaction Status Date / Time alogliptin Allergy Hives Verified 04/25/21 11:36 dulaglutide [From Trulicity] Allergy Hives Verified 04/25/21 11:36 glipizide Allergy Hives Verified 04/25/21 11:36 metformin Allergy Hives Verified 04/25/21 11:36 Penicillins [PCN] Allergy Hives Verified 04/25/21 11:36 aspirin AdvReac Severe blood Verified 04/25/21 11:36 clots canagliflozin [From Invokana] AdvReac Severe abdominal Verified 04/25/21 11:36 pain Family History Sister Breast cancer Mother Hypertension Heart disease Myocardial infarction, Onset Age: 61 Thyroid disorder Grandmother Arthritis Seizures Father CVA (cerebral vascular accident) Brother Heart disease Myocardial infarction Sister CAD (coronary artery disease) Surgical History History of hysterectomy History of tonsillectomy History of tubal ligation Presence of coronary angioplasty implant and graft (~04/10/16) Social History Smoking Status: Former smoker alcohol intake: never substance use type: does not use caffeine: Yes Type: coffee Number of servings: 1 frequency: 1-2 times per week ROS ROS ED Constitutional Constitutional ED: Denies chills or fever(s) Eyes Eyes: Denies change in vision ENT ENT ED: Denies sore throat Cardiovascular Cardiovascular: Reports chest pain Respiratory/Chest Respiratory/Chest: Reports dyspnea; Denies cough Gastrointestinal Gastrointestinal: Denies abdominal pain, diarrhea, nausea or vomiting Genitourinary Genitourinary ED: Denies dysuria Musculoskeletal Musculoskeletal: Reports arthralgias and back pain Integumentary Denies rash Allergic/Immunologic Allergic/Immunologic ED: Denies urticaria EXAM Physical Exam Const Vital Signs: 04/25/21 11:28 04/25/21 11:33 04/25/21 11:34 Temperature 96.1 F L Temperature Source Temporal Pulse Rate 93 95 Respiratory Rate 22 H 26 H 17 Respiratory Effort Blood Pressure 143/92 H 195/67 H Blood Pressure Mean 109 109 Pulse Ox 97 96 Oxygen Delivery Method Room Air Room Air Room Air 04/25/21 11:39 04/25/21 12:28 04/25/21 13:15 Temperature Temperature Source Pulse Rate 80 85 Respiratory Rate 19 H 16 Respiratory Effort Normal Blood Pressure 156/59 H 149/69 H Blood Pressure Mean 91 95 Pulse Ox 96 96 Oxygen Delivery Method Room Air Room Air 04/25/21 14:05 Temperature Temperature Source Pulse Rate 86 Respiratory Rate 19 H Respiratory Effort Blood Pressure 172/126 H Blood Pressure Mean 141 Pulse Ox 97 Oxygen Delivery Method Room Air Positive well nourished and well developed General Appearance ED: well developed HEENT Reports moist mucous membranes Eyes PERRL and EOMs intact bilaterally Neck supple Chest Wall inspection of chest normal and palpation of chest normal Resp normal respiratory effort and clear to auscultation bilaterally Cardio regular rate and regular rhythm Extremity normal to inspection Neuro oriented x3 and no sensory deficits noted Sensorium / Orientation: alert Motor Exam: strength 5/5 throughout Psych mental status grossly normal Skin no rashes or lesions noted MDM MDM MDM Narrative Medical decision making narrative: EKG, chest x-ray, lab work obtained. Due to patient's symptoms including chest and back pain with hypertension CTA of the chest abdomen pelvis was also ordered. Lab Data Attestation: I reviewed the patient's lab results. Labs: Laboratory Results - last 24 hr 04/25/21 04/25/21 04/25/21 11:40 11:40 11:40 WBC 13.6 H RBC 4.88 Hgb 14.9 Hct 45.4 MCV 93.0 MCH 30.5 MCHC 32.8 RDW Std Deviation 44.8 H RDW Coeff of Eveline 13.1 Plt Count 336 MPV 10.8 Immature Gran % (Auto) 1.400 H Neut % (Auto) 72.3 H Lymph % (Auto) 17.6 L [place] % (Auto) 6.2 Eos % (Auto) 1.8 Baso % (Auto) 0.7 Absolute Neuts (auto) 9.9 H Absolute Lymphs (auto) 2.40 Nucleated RBC % 0 Sodium 136 Potassium 4.4 Chloride 101 Carbon Dioxide 29.0 Anion Gap 6 BUN 17 Creatinine 0.94 Estim Creat Clear Calc 44.67 Est GFR (MDRD) Af Amer 76 Est GFR (MDRD) Non-Af 63 BUN/Creatinine Ratio 18.0 Glucose 284 H Calcium 9.0 Troponin I High Sens 12 B-Natriuretic Peptide 53.5 Radiography Chest X-Ray - ED: 1 View, Read by ED Physician and Chronic Changes Diagnostic Testing: Clinical Impression(s) from Imaging Studies Chest/Abdomen/Pelvis CTA 04/25/21 11:58 IMPRESSION: Stable 5.7 mm nodule in the left upper lobe. Diffuse fatty infiltration of the liver. Electronically Signed: Roel Moreno MD at 13:50 EST , Chest X-Ray 04/25/21 12:37 IMPRESSION: Mild degree of increased markings at the right lung base suggestive of either atelectasis and/or early infiltrate. Electronically Signed: Roel Moreno MD at 13:00 EST , EKG Initial EKG: Attestation: I personally reviewed and interpreted this EKG as follows: Interpretation: Sinus Rhythm (Sinus 86 with a right bundle branch block. No acute ischemia.) Treatment and Re-Evaluation Comments:: Repeat evaluation patient resting comfortably. Lab work reviewed remarkable only for a slightly elevated white count at 13.6. Troponin is normal at 12. CTA of the chest, abdomen, and pelvis revealed no acute abnormalities. Patient is comfortable with this work-up and will follow up with Dr. Jewell. Return instructions provided. Discharge Plan Triage Chief Complaint: Chest Pain Other Complaint: Shortness of Breath ED Provider: Susana Arredondo Dx/Rx/DC Orders Clinical Impression: Chest pain Instructions: ED Chest Pain, Uncertain Cause Prescriptions: No Action levothyroxine 88 MCG tablet 88 mcg PO DAILY RF: 0 insulin NPH and regular human 100 UNIT/ML insulin pen 24 unit SQ DAILY RF: 0 insulin NPH and regular human 100 UNIT/ML insulin pen 22 unit SQ QHS RF: 0 ticagrelor 90 mg tablet 90 mg PO BID Qty: 180 RF: 3 carvedilol 3.125 mg tablet 3.125 mg PO BID Qty: 180 RF: 3 Primary Care Provider: Elsy Noel Referrals: Elsy Noel MD [Primary Care Provider] - Forrest Jewell MD [STAFF PHYSICIAN] - Keep Junito appointment Disposition Disposition: Home, Self Care
[2021-04-25 12:36] LABS: Absolute Neutrophil Count 9.9 X10^3/uL (2.0-7.7); Basophil# 0.09 X10^3/uL; Basophil% 0.7 % (0-1); Eosinophil# 0.25 X10^3/uL; Eosinophils% 1.8 % (0-5); Hematocrit 45.4 % (37-47); Hemoglobin 14.9 g/dL (12.0-15.0); Lymphocyte % 17.6 % (19-41); Mean Corp Hgb Conc 32.8 g/dL (32-36); Mean Corpuscular Hgb 30.5 pg (27.0-32.0); Mean Platelet Vol. 10.8 fl (6.2-12.0); Monocyte# 0.84 X10^3/uL; Monocyte% 6.2 % (0-10); NRBC Flagged by Analyzer 0 % (0-5); Neutrophil # 9.85 X10^3/uL (2.7-7.7); Neutrophil % 72.3 % (47-70); Platelet Count 336 K/mm3 (150-450); RBC Distribution Width CV 13.1 % (11.6-14.6); RBC Distribution Width SD 44.8 fl (35.1-43.9); Red Blood Count 4.88 M/mm3 (4.2-5.4); White Blood Count 13.6 K/mm3 (4.4-11.0)
--- NOTE | 2021-04-25 12:37 | RAD_ITS ---
STUDY: X-RAY CHEST REASON FOR EXAM: Female, 70 years old. Sob TECHNIQUE: Single AP portable view of the chest. COMPARISON: No prior study is available for comparison. FINDINGS: EKG electrodes are seen. Mild increased markings are seen in the right infrahilar region. This may represent early infiltrate and/or atelectasis. There is no demonstrated pleural abnormality. Normal size heart. Normal mediastinum and yris. Normal visualized pulmonary arteries. Normal visualized aortic arch and descending thoracic aorta. Normal visualized thoracic spine. Normal visualized ribs, clavicles, and shoulders. There is no demonstrated abnormality of the visualized soft tissue structures of the upper abdomen. RAD/Chest 1 View (Portable) IMPRESSION: Mild degree of increased markings at the right lung base suggestive of either atelectasis and/or early infiltrate. Electronically Signed: Roel Moreno MD at 13:00 EST ,
[2021-04-25 12:49] LABS: Anion Gap 6 (5-15); BUN 17 mg/dL (7-18); Chloride 101 mmol/L (98-107); Creatinine, Serum 0.94 mg/dL (0.55-1.02); EST Glomerular Filtration Rate 63 mL/min (>60); Est Glom Filt Rate - Afr Amer 76 mL/min (>60); Estimated Creatinine Clearance 44.67 ml/min; Glucose 284 mg/dL (74-106); Potassium 4.4 mmol/L (3.5-5.1); Sodium Level 136 mmol/L (136-145); Troponin-I HS 12 pg/mL (3.0-54.0)
[2021-04-25 13:01] LABS: BNP,B-Type NATRIURETIC PEPTIDE 53.5 pg/mL (0-100)
== END 2021-04-25 15:05 | disposition home or self-care (01) ==
PROVIDERS: Emergency Provider Emergency Medicine; PCP Internal Medicine; Visit Provider Emergency Medicine
DX: R07.9 Chest pain, unspecified (principal); E11.9 Type 2 diabetes mellitus without complications; Z79.4 Long term (current) use of insulin; R06.02 Shortness of breath; E78.5 Hyperlipidemia, unspecified; Z87.891 Personal history of nicotine dependence; I25.10 Atherosclerotic heart disease of native coronary artery without angina pectoris; I10 Essential (primary) hypertension; I25.2 Old myocardial infarction; Z86.718 Personal history of other venous thrombosis and embolism; K58.9 Irritable bowel syndrome, unspecified; Z95.5 Presence of coronary angioplasty implant and graft
CPT/HCPCS: 71045; 71275; 74174; 80048; 83880; 84484; 85025; 93005; 99284; Q9967

== ENCOUNTER 2021-06-07 09:32 | Outpatient (CLI) | payer MEDICARE, MEDICAID, SELFPAY ==
[2021-06-07 10:15] LABS: Bacteria 0 SEEN /hpf (None Seen); Mucous, Urine 0 SEEN /hpf (<or=2+); Red Blood Cells-Urine 0 SEEN /hpf (0-5); Squamous Epithelial Cells - UA 0 SEEN /hpf (5-10); White Blood Cells 0 SEEN /hpf (0-5)
[2021-06-07 12:18] LABS: Color, Urine Yellow (Yellow); Glucose, Dipstick 250 mg/dl (Normal); Ketone-Dipstick Negative (Negative); Leukocyte Esterase-Dipstick Negative /ul (Negative); Nitrite-Dipstick Negative (Negative); Occult Blood-Urine Negative /ul (Negative); Protein-Dipstick Negative (Negative); Urine Bilirubin Dipstick Negative (Negative); Urine Clarity Sl. Cloudy (Clear); Urine Urobilinogen Normal (Normal); Urine pH 6.5 (5.0 - 8.0)
[2021-06-07 12:21] LABS: Absolute Neutrophil Count 8.1 X10^3/uL (2.0-7.7); Basophil# 0.09 X10^3/uL; Basophil% 0.8 % (0-1); Eosinophil# 0.28 X10^3/uL; Eosinophils% 2.4 % (0-5); Hematocrit 43.8 % (37-47); Hemoglobin 13.9 g/dL (12.0-15.0); Lymphocyte % 20.2 % (19-41); Mean Corp Hgb Conc 31.7 g/dL (32-36); Mean Corpuscular Hgb 29.6 pg (27.0-32.0); Mean Corpuscular Volume 93.4 fL (81-99); Monocyte# 0.83 X10^3/uL; NRBC Flagged by Analyzer 0 % (0-5); Neutrophil % 68.3 % (47-70); Platelet Count 332 K/mm3 (150-450); RBC Distribution Width CV 13.2 % (11.6-14.6); RBC Distribution Width SD 45.1 fl (35.1-43.9); Red Blood Count 4.69 M/mm3 (4.2-5.4); White Blood Count 11.9 K/mm3 (4.4-11.0)
[2021-06-07 12:45] LABS: Vitamin D,25 Hydroxy 18.1 ng/mL
[2021-06-07 13:03] LABS: Protein, Urine (Random) 6.9 mg/dL (<11.9); Protein:Creat Ratio 291 mg/g CRE (0-200)
[2021-06-07 13:09] LABS: ALB/GLOB Ratio 0.9 RATIO (0.9-2.4); AST(SGOT) 23 U/L (15-37); Alanine Aminotransfer ALT/SGPT 33 U/L (13-56); Albumin, Serum 3.6 g/dL (3.2-5.0); Alkaline Phosphatase 122 U/L (45-117); Anion Gap 6 (5-15); BUN 20 mg/dL (7-18); BUN/Creat Ratio 21.3 RATIO (10-20); Calcium,Total 9.8 mg/dL (8.5-10.1); Chloride 101 mmol/L (98-107); Cholesterol 160 mg/dL (200); Creatinine, Serum 0.94 mg/dL (0.55-1.02); EST Glomerular Filtration Rate 63 mL/min (>60); Est Glom Filt Rate - Afr Amer 76 mL/min (>60); Free T3 2.8 pg/mL (2.18-3.98); Globulin 4.2 g/dL (2.2-4.2); Glucose 232 mg/dL (74-106); High Density Lipoprotein 51 mg/dL; Magnesium 2.1 mg/dL (1.6-2.6); Potassium 4.3 mmol/L (3.5-5.1); Protein, Total 7.8 g/dL (6.4-8.2); Sodium Level 134 mmol/L (136-145); T4 Free Direct 0.79 ng/dL (0.76-1.46); Triglycerides 186 mg/dL; Very Low Density Lipoprotein 37 mg/dL (5-40)
== END 2021-06-07 23:59 | disposition home or self-care (01) ==
LOC: BIMLAB 09:34
PROVIDERS: PCP Internal Medicine; Referring Provider Internal Medicine; Visit Provider Internal Medicine
DX: I25.10 Atherosclerotic heart disease of native coronary artery without angina pectoris (principal); E11.9 Type 2 diabetes mellitus without complications; I25.2 Old myocardial infarction; E55.9 Vitamin D deficiency, unspecified; E03.9 Hypothyroidism, unspecified; E78.5 Hyperlipidemia, unspecified; I10 Essential (primary) hypertension
CPT/HCPCS: 36415; 80053; 80061; 81001; 82306; 82570; 83735; 84156; 84439; 84443; 84481; 85025

== ENCOUNTER → 2021-07-21 | Outpatient (CLI) | payer MEDICARE, MEDICAID, SELFPAY ==
--- NOTE | 2021-07-21 08:54 | STRESSREP ---
Stress Test Report Date: 07-21-2021 Procedure: Pharmacologic stress nuclear imaging study Indications: Shortness of breath/dyspnea on exertion; CAD; status post PCI (LAD and RCA) Consent: Per the patient Procedure: The patient underwent pharmacologic (Regadenoson 0.4mg ) evaluation with a peak heart rate of 92 beats per minute (60%predicted maximal heart rate) and a peak blood pressure of 158/82 mmHg. The baseline ECG demonstrated normal sinus rhythm; right bundle branch block pattern. The peak pharmacologic ECG demonstrated no obvious ECG changes. There were no cardiac dysrhythmias pretest, during pharmacologic infusion, or recovery. There was no complaint of chest discomfort during pharmacologic infusion or recovery. The examination was discontinued secondary to completion of protocol. Impression: 1. Pharmacologic (Regadenoson) evaluation 2. Peak pharmacologic ECG with continued right bundle branch block pattern with no obvious ECG changes. 3. There were no cardiac dysrhythmias pretest, during pharmacologic infusion, or recovery. 4. Nuclear images pending Myocardial perfusion imaging study: Technique: The patient was injected with 14.8 millicuries of technetium 99m Cardiolite and subsequently rest SPECT Cardiolite nuclear imaging was obtained in the horizontal long, vertical long, and short axis views. The patient underwent pharmacologic (Regadenoson) evaluation with a peak heart rate of 92 beats per minute (60% percent predicted maximal heart rate) and a peak blood pressure of 158/82 mmHg. The patient was injected with 44.7 millicuries of technetium 99m Cardiolite and subsequently stress SPECT Cardiolite nuclear imaging was obtained in the horizontal long, vertical long, and short axis views. A gated Cardiolite study at peak stress was obtained. Interpretation: Rest and stress SPECT Cardiolite nuclear imaging status post realignment, normalization, and attenuation correction demonstrate the appearance of diminished absence of myocardial perfusion/tracer uptake in portions of the distal anterior/anterior apical segments which appears to be more prominent following stress as opposed to rest. There is diminished end-systolic thickening and brightening in the aforementioned area. The gated Cardiolite study demonstrates myocardial thickening and inward wall motion. The reported LVEF is 69%. Impression: 1. Rest and stress SPECT her nuclear imaging demonstrate myocardial perfusion changes appearing compatible with an area of previous myocardial injury/infarction involving portions of the distal anterior/anteroapical segments with post-rest myocardial perfusion changes appearing compatible with sarah-infarct related myocardial ischemia. 2. The gated Cardiolite study reports an LVEF of 69%. This note was generated with My Digital Shieldation software. It may contain incorrect words, spelling, and punctuation that were not noted in checking the note before signing.
== END | disposition home or self-care (01) ==
LOC: CVS 06:32
PROVIDERS: PCP Internal Medicine; Referring Provider Nurse Practitioner Family; Visit Provider Nurse Practitioner Family
DX: I25.10 Atherosclerotic heart disease of native coronary artery without angina pectoris (principal); R06.02 Shortness of breath; Z95.5 Presence of coronary angioplasty implant and graft
CPT/HCPCS: 78452; 93017; A9500; A4216; J2785

== ENCOUNTER → 2021-07-24 | Outpatient (CLI) | payer MEDICARE, MEDICAID, SELFPAY ==
--- NOTE | 2021-07-25 05:23 | PFTCOMP ---
COMPLETE PULMONARY FUNCTION TEST INTERPRETATION Brief HPI: Patient is a 70 year old female, currently under the care of Rustam Francois, who presents to [facility] for complete pulmonary function tests secondary to diagnosis of dyspnea. Respiratory therapist reports good effort and reproducible results. Interpretation: Forced expiration spirometry shows no large airways obstructive ventilatory defect with an FEV1 of 93% predicted. There is no significant bronchodilator response by strict ATS criteria. Spirograms are of good quality and plateau normally. The respiratory flow volume loop shows a normal pattern. Lung volumes by body plethysmography show a normal total lung capacity at 3.87 L, 88% predicted. All other lung volumes are within normal limits. Diffusion capacity by carbon monoxide is normal at 105% predicted. The airway resistance is normal. No previous pulmonary function tests were available for review. Impression: These pulmonary function tests are grossly within normal limits.
== END | disposition home or self-care (01) ==
LOC: PSN 12:27
PROVIDERS: PCP Internal Medicine; Referring Provider Nurse Practitioner Family; Visit Provider Nurse Practitioner Family
DX: R06.09 Other forms of dyspnea (principal); I25.10 Atherosclerotic heart disease of native coronary artery without angina pectoris; Z95.5 Presence of coronary angioplasty implant and graft
CPT/HCPCS: 94060; 94726; 94729

== ENCOUNTER 2021-09-05 07:25 | Day surgery (SDC) | payer MEDICARE, MEDICAID, SELFPAY ==
[2021-08-28 12:44] LABS: Hematocrit 42.5 % (37-47); Hemoglobin 13.7 g/dL (12.0-15.0); Mean Corp Hgb Conc 32.2 g/dL (32-36); Mean Corpuscular Hgb 29.7 pg (27.0-32.0); Mean Platelet Vol. 10.9 fl (6.2-12.0); Platelet Count 299 K/mm3 (150-450); RBC Distribution Width CV 12.9 % (11.6-14.6); RBC Distribution Width SD 43.4 fl (35.1-43.9); Red Blood Count 4.62 M/mm3 (4.2-5.4); White Blood Count 12.7 K/mm3 (4.4-11.0)
[2021-08-28 12:51] LABS: Partial Thromboplast Time 25.4 Seconds (24.1-36.2)
[2021-08-28 13:09] LABS: Anion Gap 5 (5-15); BUN 19 mg/dL (7-18); BUN/Creat Ratio 23.6 RATIO (10-20); Calcium,Total 9.1 mg/dL (8.5-10.1); Chloride 103 mmol/L (98-107); EST Glomerular Filtration Rate 75 mL/min (>60); Est Glom Filt Rate - Afr Amer 91 mL/min (>60); Glucose 160 mg/dL (74-106); Sodium Level 136 mmol/L (136-145)
[2021-09-01 12:02] VITALS: BMI 40.6
--- NOTE | 2021-09-04 11:14 | HP.PCM_ITS ---
History and Physical Date of Admission: 09/05/21 [facility] [address] [place] [address] OFFICE VISIT Date of Service:? 08/28/21 MR#: [id number] Acct: [id number] Name:FELICITAS BABB Rep #: [id number] : 1950 Provider: ?ALESIA Francois Age/Sex:? 70/F Location: [facility] Status: Signed HPI HPI History of Present Illness Surgical H&P: Yes Details: This is a 70-year-old white female who presents today for outpatient cardiovascular consultation based upon concerns of shortness of breath/dyspnea with exertion superimposed upon a history of underlying CAD, [place], PCI to the LAD and RCA, with the previous report during her initial event of cardiogenic shock requiring intra-aortic balloon pump, superimposed upon concerns of possible hyperlipidemia, hypertension, diabetes mellitus, and obesity.? The patient underwent cardiovascular evaluation care at [facility] in [place], [place] in 2015 and 2016.? At that time, it appears in 2015 she was diagnosed with an acute ST segment elevation WA and underwent cardiac catheterization and subsequent LAD PCI for a 95% stenosis.? There was comment the first diagonal branch had an ostial 70% stenosis.? The LCx had 30% stenosis.? The RCA had 70% stenosis.? She underwent PCI with support of intra-aortic balloon pump.? Her left ventricle at the time demonstrated anterior and inferior apical akinesis with an LVEF of 20%. She was diagnosed with COVID-19 in February 2020. Patient underwent a stress test on 07/21/2021 that showed no EKG changes and nuclear images demonstrated myocardial perfusion changes appearing compatible with an area of previous myocardial injury/infarction involving portions of the distal anterior/anteroapical segments with post-rest myocardial perfusion changes appearing compatible with sarah-infarct related myocardial ischemia.? To also assess shortness of breath, she underwent a pulmonary function test on 07/25/2021 that showed grossly within normal limits. On account of unexplainable shortness of breath and stress test findings, she was asked undergo a heart catheterization to assess further. She denies chest, arm, jaw, or neck discomfort.? She denies palpitations or bilateral lower extremity edema.? She acknowledges shortness of breath with activity and occasional shortness of breath at rest.? She denies orthopnea, cough, or PND.? She denies lightheadedness, dizziness, near-syncope, or syncope.? She acknowledges ongoing fatigue and daytime sleepiness. Intake Vital Signs ? 08/28/2208:45 Height 5 ft 2 in Weight: 222 lb BMI 40.6 BP 134/71 H Blood Pressure Location Lt brachial Position Sitting Respiration 18 Pulse 87 Pulse Source Monitor Intake Visit Reasons:?Update H&P for cath 09/05 Nichole Senior Cost Accountant Required: No Accompanied by: None Is patient in pain?: No Allergies levothyroxine Allergy (Intermediate, Verified 08/28/21 10:12) diarrhea and rashalogliptin Allergy (Verified 08/28/21 10:12) Hivesdulaglutide [From Trulicity] Allergy (Verified 08/28/21 10:12) Hivesglipizide Allergy (Verified 08/28/21 10:12) Hivesmetformin Allergy (Verified 08/28/21 10:12) HivesPenicillins [PCN] Allergy (Verified 08/28/21 10:12) Hivesaspirin Adverse Reaction (Severe, Verified 08/28/21 10:12) blood clotscanagliflozin [From Invokana] Adverse Reaction (Severe, Verified 08/28/21 10:12) abdominal pain Medications carvedilol 3.125 mg tablet 3.125 mg PO BID #180 tab 09/21/20 [Rx Confirmed 08/28/21] ticagrelor 90 mg tablet 90 mg PO BID #180 tab 09/21/20 [Rx Confirmed 08/28/21] insulin NPH-regular 70-30 U-100 insulin 100 unit/mL subcutaneous pen 24 unit SUBCUT BID #15 ml 06/07/21 [Rx Confirmed 08/28/21] thyroid (pork) 60 mg tablet 60 mg PO DAILY #60 tab 06/16/21 [Rx Confirmed 08/28/21] Ejection fraction %: 65 to 70 PFSH Medical History? Atherosclerotic heart disease of [place] coronary artery without angina pectoris Cardiogenic shock Carpal tunnel syndrome Diabetes Elevated WBC count Essential hypertension History of DVT (deep vein thrombosis) History of non-ST elevation myocardial infarction (NSTEMI) History of pneumonia Hyperlipemia Hypertension Hypothyroidism IBS (irritable bowel syndrome) Presence of stent in coronary artery (~04/10/16) Type 2 diabetes mellitus Surgical History? History of excision of mass (~07/2020) History of hysterectomy History of tonsillectomy History of tubal ligation Presence of coronary angioplasty implant and graft (~04/10/16) Family History? Sister Breast cancerMother Hypertension Heart disease Myocardial infarction,? Onset Age: 61 Thyroid disorderGrandmother Arthritis SeizuresFather CVA (cerebral vascular accident)Brother Heart disease Myocardial infarctionSister?? CAD (coronary artery disease) Social History? Smoking Status:? Former smoker how long ago did patient quit smoking:? 12/2015 alcohol intake:? never substance use type:? does not use caffeine:? Yes Type: coffee Number of servings: 1 frequency:? 1-2 times per week ROS Const Const: Positive for fatigue and daytime sleepiness; Negative for weakness, headache(s) or frequent falls Eyes Eyes: Negative for blurry vision or double vision ENT ENT: Negative for headache(s), dizziness, Nosebleed/epistaxis or balance problems Cardio Chest Pain: No Palpitations: No Edema: None Muscle aches with walking: None Resp Respiratory: Positive for SOB with activity and SOB at rest (Occasionally); Negative for SOB orthopnea\SOB lying down, Cough or paroxysmal nocturnal dyspnea GI GI: Negative nausea, vomiting or black,tarry stools : Negative for hematuria Musc Musc: Negative for muscle aches/ myalgia, joint pain or balance problems Neuro Neuro: Negative for dizziness, lightheadedness, near syncope, syncope, frequent falls, headache(s), weakness, blurry vision or double vision Endo Endo: Positive for fatigue Cardiology Exam Const Appearance: cooperative, healthy appearing, comfortable and no acute distress Nutritional Appearance: well nourished and obese Orientation: alert, awake and oriented x3 Head Head: normal to inspection Ears: hearing grossly normal bilaterally Nose: external nose normal Face and Sinus: face symmetric Mouth: oral mucosae normal Eyes General: appearance normal, both eyes and all related structures Eyelids: eyelids normal EOM: EOM intact bilaterally Neck Neck: normal visual inspection and no JVD Carotids: normal carotid upstroke Chest Chest inspection: normal inspection of the chest, symmetric chest movement and normal respiratory effort; Negative cough Auscultation: Bilateral: Clear to Auscultation Cardio Rate: regular rate Rhythm: regular rhythm Heart sounds: S1 normal and S2 normal; Negative rub, gallop or murmur GI GI: normal to inspection and obese Neuro General: patient alert, patient awake, patient oriented x3 and CN's II-XI intact bilaterally Skin Skin: no rashes or lesions noted Extremities Pulses: Normal: Right Posterior Tibial Pulse, Left Posterior Tibial Pulse, Right Radial Pulse and Left Radial Pulse Lower Extremity Edema: None: Bilateral Psych Psychological: normal affect Assessment and Plan Assessment and Plan (1) Atherosclerotic heart disease of [place] coronary artery without angina pectoris: ?Status:?Chronic ?Qualifiers: ?[place] vs. transplanted heart:?[place] heart? Qualified Code(s):?I25.10 - Atherosclerotic heart disease of [place] coronary artery without angina pectoris ? ? ? Orders:?Orders: ? 12 Lead EKG performed by BMS Today ?Plan - Rustam Francois SENIOR TABLEAU DEVELOPER, SENIOR TABLEAU DEVELOPER-C: She denies chest, arm, jaw, or neck discomfort suggestive of angina.? She does note ongoing shortness of breath that may be an anginal equivalent.? Her stress test on 07/21/2021 was considered to be abnormal.? On account of ongoing shortness of breath, abnormal stress test, risk factors for progressive coronary arteries, and previous stenting in 2015 and 2016, she will proceed with heart catheterization.? Based on results, further recommendation will be made. Her EKG in office on 08/28/2021 shows sinus rhythm with right bundle branch block.? There is no acute ST or T wave changes noted. (2) Presence of stent in coronary artery: ?Status:?Chronic ?Comment: PCI/BRENNEN in mid RCA 04/10/16; PCI/BRENNEN in the prox LAD 01/03/16 ? ? ? Orders:?Orders: ? 12 Lead EKG performed by BMS Today ?Plan - Rustam Francois SENIOR TABLEAU DEVELOPER, SENIOR TABLEAU DEVELOPER-C: She will continue Coreg and Brilinta therapy.? She does have allergy to aspirin.? Her last echocardiogram showed a preserved ejection fraction.? We will consider HELENA inhibitor/ARB on an ongoing basis based on blood pressure and ejection fraction.? (3) Dyspnea on exertion: ?Status:?Chronic ?Plan - Rustam Francois SENIOR TABLEAU DEVELOPER, SENIOR TABLEAU DEVELOPER-C: On account of ongoing shortness of breath, normal PFT, and abnormal stress test in the setting of history of coronary artery disease/previous stenting, she will proceed with heart catheterization to assess further.? Based on results, further recommendation will be made. (4) Essential hypertension: ?Status:?Chronic ? ? ? Orders:?Orders: ? 12 Lead EKG performed by BMS Today ?Plan - Rustam Francois SENIOR TABLEAU DEVELOPER, SENIOR TABLEAU DEVELOPER-C: Her blood pressure is elevated in office.? She states it is very typical to be higher in an office setting.? She does acknowledge at home this is better controlled.? She was asked to monitor this closely to ensure stability and contact office if it increases or remains elevated for further medication adjustment, which may include HELENA inhibitor or ARB on account of coronary artery disease and diabetes. (5) Hyperlipemia: ?Status:?Chronic ?Qualifiers: ?Hyperlipidemia type:?unspecified? Qualified Code(s):?E78.5 - Hyperlipidemia, unspecified ?Plan - Rustam Francois NP, SENIOR TABLEAU DEVELOPER-C: Lipid panel from 06/07/2021 showed Cholesterol: 160, HDL: 51, LDL: 72, and Triglycerides: 186.? Given coronary artery disease and diabetes history, we should reconsider statin medication. Plan Details Other Orders: ?Orders: ? 12 Lead EKG performed by [facility] Today R94.3 9 ? Additional Comments: Thank you for allowing us to participate in the patients plan of care, if you have any questions please do not hesitate to call. This note was generated using a voice recognition system and there may be incorrect words, spelling or punctuation that were not noted when reviewing the office note prior to saving. Portions of this documentation were copied and pasted from previous office visit notes to provide a cohesive continuity of the history. The note has been reviewed, edited, and updated, as necessary. Follow Up: ? ? Keep as is?([facility]) COVID (Procedure Consent) Procedure Criteria Procedure Criteria: Yes Elective?The surgeon/proceduralist and patient have discussed in detail the risk of exposure to and/or potential harm posed by the COVID-19 virus with having a surgery/procedure at this time versus the risk of? delaying the surgery/procedure. It is not possible to know either the risk of delaying the surgery or procedure or chance of getting an infection with perfect accuracy, but a joint decision was made between the patient and the surgeon/proceduralist ?to proceed at this time with the scheduled surgery/procedure as indicated on the consent form. Coding Level of Care Code Off vis,est,level 3 Diagnoses Atherosclerotic heart disease of [place] coronary artery without angina pectoris? I25.10 ? ? ? [place] vs. transplanted heart: [place] heart Presence of stent in coronary artery? Z95.5 Dyspnea on exertion? R06.00 Essential hypertension? I10 Hyperlipemia? E78.5 ? ? ? Hyperlipidemia type: unspecified Coding Level of Care Code Off vis,est,level 3 Diagnoses Atherosclerotic heart disease of [place] coronary artery without angina pectoris? I25.10 ? ? ? [place] vs. transplanted heart: [place] heart Presence of stent in coronary artery? Z95.5 Dyspnea on exertion? R06.00 Essential hypertension? I10 Hyperlipemia? E78.5 ? ? ? Hyperlipidemia type: unspecified Supplemental Info Supplemental Information Echocardiogram from 05/10/2020: Interpretation Summary The study was technically difficult. Contrast injection was performed. Segmental dysfunction with preserved ejection fraction (see wall motion). The estimated ejection fraction is 65 %. Trivial mitral valve insufficiency. Trivial tricuspid valve insufficiency. Trivial pulmonic valve insufficiency. Trivial pericardial effusion. There are no echocardiographic indications of cardiac tamponade. Unable to estimate RV systolic pressure/pulmonary artery pressure due to technically difficult study. Diastolic function is indeterminate. Echocardiogram performed in December 2015.? At that time her LVEF was reported at 50%.? She had an echocardiogram performed in May 2016.? At that time her LVEF was reported at 55 to 60% with an element of hypokinesis of the apex with trivial MR trivial TR and a small pericardial effusion with fibrinous appearing material. Stress Test Report Date: 07-21-2021 Procedure: Pharmacologic stress nuclear imaging study Indications: Shortness of breath/dyspnea on exertion; CAD; status post PCI (LAD and RCA) Consent: Per the patient Procedure: The patient underwent pharmacologic (Regadenoson 0.4mg ) evaluation with a peak heart rate of 92 beats per minute (60%predicted maximal heart rate) and a peak blood pressure of 158/82 mmHg. The baseline ECG demonstrated normal sinus rhythm; right bundle branch block pattern.? The peak pharmacologic ECG demonstrated no obvious ECG changes. There were no cardiac dysrhythmias pretest, during pharmacologic infusion, or recovery. There was no complaint of chest discomfort during pharmacologic infusion or recovery. The examination was discontinued secondary to completion of protocol. Impression: 1.? Pharmacologic (Regadenoson) evaluation 2.? Peak pharmacologic ECG with continued right bundle branch block pattern with no obvious ECG changes. 3.? There were no cardiac dysrhythmias pretest, during pharmacologic infusion, or recovery. 4.? Nuclear images pending Myocardial perfusion imaging study: Technique: The patient was injected with 14.8 millicuries of technetium 99m Cardiolite and subsequently rest SPECT Cardiolite nuclear imaging was obtained in the horizontal long, vertical long, and short axis views. The patient underwent pharmacologic (Regadenoson) evaluation with a peak heart rate of 92 beats per minute (60% percent predicted maximal heart rate) and a peak blood pressure of 158/82 mmHg. The patient was injected with 44.7 millicuries of technetium 99m Cardiolite and subsequently stress SPECT Cardiolite nuclear imaging was obtained in the horizontal long, vertical long, and short axis views.? A gated Cardiolite study at peak stress was obtained. Interpretation: Rest and stress SPECT Cardiolite nuclear imaging status post realignment, normalization, and attenuation correction demonstrate the appearance of diminished absence of myocardial perfusion/tracer uptake in portions of the distal anterior/anterior apical segments which appears to be more prominent following stress as opposed to rest.? There is diminished end-systolic thickening and brightening in the aforementioned area.? The gated Cardiolite study demonstrates myocardial thickening and inward wall motion.? The reported LVEF is 69%. Impression: 1.? Rest and stress SPECT her nuclear imaging demonstrate myocardial perfusion changes appearing compatible with an area of previous myocardial injury/infarction involving portions of the distal anterior/anteroapical segments with post-rest myocardial perfusion changes appearing compatible with sarah-infarct related myocardial ischemia. 2.? The gated Cardiolite study reports an LVEF of 69%. She returned in?March 2016?for additional evaluation and care.? She underwent cardiac catheterization at that time. There the LAD stent was patent with 20% stenosis in the mid vessel, the first diagonal branch had ostial 80% stenosis, the LCx had 20% stenosis, the RCA had a mid 75% stenosis.? She underwent RCA PTCA/stent. Pulmonary function test from 07/25/2021: Impression: These pulmonary function tests are grossly within normal limits. Labs: ?? ? LDL Cholesterol 72 mg/dL (0-130) ?? ? HDL Cholesterol 51 mg/dL (40-) ?? ? Triglycerides 186 mg/dL (-199) ?? ? VLDL Cholesterol 37 mg/dL (5-40) Diagnostics: ?? ? Electrocardiogram ? Echocardiogram ? Stress Test NM ? Stress Test ? Chest X-Ray ? Pulmonary: ?? ? Pulmonary Function Test ? 08/28/21 1118 <Electronically signed by Rustam DUMAS> Date Rustam DUMAS Cosigner Signature: Date (if applicable) CC:? Dr. Elsy Noel MD ~ Assessment & Plan Addt'l Comments I have re-examined the patient. There are no clinical changes since date of exam This note was generated using a voice recognition system and there may be incorrect words, spelling or punctuation that were not noted when reviewing the office note prior to saving.
--- NOTE | 2021-09-05 10:01 | ECHOCS_ITS ---
Reason For Study: CAD/ASHD Procedure This was a 2D Doppler, Color Flow transthoracic echocardiogram. Technically difficult study, contrast injection performed. Patient scanned supine post Heart Cath (09/05/2021). The study was technically difficult. Contrast injection was performed. Exam performed in [facility] recovery room 2. Left Ventricle Normal LV size. Segmental dysfunction with preserved ejection fraction (see wall motion). The estimated ejection fraction is 65 %. Diastolic function is indeterminate. Mid-Anterior : Hypokinetic. Mid-anteroseptal : Hypokinetic. [place] : Akinetic. Right Ventricle Normal RV size. Normal systolic function. Atria Normal left atrium. Normal right atrium. No doppler evidence for ASD. Mitral Valve There is no mitral annular calcification. Normal mitral valve. Trivial mitral valve insufficiency. Tricuspid Valve Normal tricuspid valve. Trivial tricuspid valve insufficiency. Unable to estimate RV systolic pressure/pulmonary artery pressure due to technically difficult study. Aortic Valve Trisinus/trileaflet aortic valve. Normal aortic valve. Pulmonic Valve The pulmonic valve is not well visualized. Great Vessels Normal sized aortic root. Pericardium/Pleural No pericardial effusion. Medication Diluted definity 2ml given slow IV push to enhance endocardial definition. MMode/2D Measurements & Calculations LVIDd: 4.6 cm IVSd: 1.2 cm Ao root diam: 2.7 cm LVIDs: 3.1 cm LVPWd: 0.89 cm LA dimension: 3.6 cm FS: 33.4 % LAV(MOD-bp): 37.9 ml LA A4 area: 16.0 cm2 LAV(MOD-bp) Indexed: 19.0 ml/m2 LAV(MOD-sp2): 35.5 ml LAV(MOD-sp4): 34.9 ml Time Measurements MV dec time: 0.26 sec Doppler Measurements & Calculations MV E max elvin: 93.9 cm/sec Lat Peak E' Elvin: 6.9 cm/sec Med Peak E' Elvin: 7.0 cm/sec MV A max elvin: 123.5 cm/sec E/E' lat: 13.6 E/E' med: 13.5 MV E/A: 0.76 MV V2 max: 127.9 cm/sec MV P1/2t max elvin: 95.2 cm/sec Ao V2 max: 113.9 cm/sec MV max P.5 mmHg MV P1/2t: 94.6 msec Ao max P.2 mmHg MV V2 mean: 70.1 cm/sec MV dec slope: 294.9 cm/sec2 MV mean P.4 mmHg MV V2 VTI: 27.7 cm MVA(P1/2t): 2.3 cm2 LV V1 max: 97.9 cm/sec PA V2 max: 101.9 cm/sec LV V1 max P.8 mmHg ECHO/Echo Complete W/ Contrast Interpretation Summary The study was technically difficult. Contrast injection was performed. Segmental dysfunction with preserved ejection fraction (see wall motion). The estimated ejection fraction is 65 %. Trivial mitral valve insufficiency. Trivial tricuspid valve insufficiency. Unable to estimate RV systolic pressure/pulmonary artery pressure due to techni justin difficult study. Diastolic function is indeterminate. Ordering Physician: Forrest Jewell Referring Physician: Elsy Noel M.D. Performed By: Masoud Garcia RCS
--- NOTE | 2021-09-05 10:15 | CL.D_ITS ---
Patient Name: FELICITAS INIGUEZ Study Date: 09/05/2021 Performing: Forrest Jewell MD Ht: 61.81 inches 157 cm : 1950 Wt: 222.67 lbs 101 kg Age: 70 Gender: female BSA: 2 PROCEDURE(S) PERFORMED [id number])LHC/COR/LV CLINICAL PROFILE AND INDICATIONS Indications: Suspected CAD Heart Failure: None Stress/Imaging Date: 07/21/21Stress Test with SPECT MPI: Positive Intermediate Risk Angina Classification Anginal Classification w/in 2 Weeks: Anginal Equivalent Dyspnea CAD Presentations: Other: dyspnea on exertion CONCLUSIONS Elevated Left Ventricular End Diastolic Pressure LV regional wall motion abnormalities with overall preserved LV systolic function LVEF: by LV gram 55 % [place] Multivessel CAD RECOMMENDATIONS Risk factor modification Medical therapy Surgery consult for coronary revascularization DESCRIPTION OF PROCEDURE The patient arrived to the procedure lab. The risks and benefits of the procedure as well as a full d escription of our services here and current unavailability of surgical backup were fully explained to the patient and/or their significant other prior to the catheterization. The Timeout was completed, verifying the correct patient and procedure. The patient's procedural site was prepped and draped in the usual fashion. Local anesthetic was given subcutaneously to right radial region with Lidocaine 2% . Using a modified Seldinger technique, arterial access was obtained via the right radial artery, a 6 Fr sheath was inserted. Right Coronary Artery selective angiography was then performed in multiple v iews using a 5 Fr. 4.0 [place] catheter. Left Coronary Artery selective angiography was performed in mu ltiple views using a 5 Fr. JL3.5 catheter. Left Ventriculography was performed in ROBERT projection usin g a 5 Fr. [place] catheter. LV to AO pullback pressures were then recorded.The arterial sheath was pulled and a TR Band was applied for hemostasis. 14cc of air CORONARY ANGIOGRAPHY DOMINANCE: Right Dominant LEFT HEART ASSESSMENT Left Ventricular Ejection Fraction: by LV Gram 55 % Anterior Hypokinesis. Apical Akinesis Elevated Left Ventricular End Diastolic Pressure LVEDP: 18 mmHg LEFT MAIN: distal: somewhate hazy: 50 - 75 % Stenosis LEFT ANTERIOR DESCENDING ARTERY: OSTIAL LAD: 50 % Stenosis PROX LAD: Previously placed stent has an instent difusse: 10 - 25 % restenosis DIAGONAL 1: Ostial - 50 % Stenosis CIRCUMFLEX ARTERY: Mild luminal irregularities MID CIRC: s/p OM1 takeoff: 75 % Stenosis RIGHT CORONARY ARTERY: Mild luminal irregularities MID RCA: Previously placed stent is patent AORTIC ROOT: Angiographically normal COMPLICATIONS No Complications PROCEDURE MEDICATIONS Versed 1 mg IV Fentanyl 50 mcg IV Oxygen: 2 L/min via nasal cannula Benadryl 50 mg IV @ 09/05/2021 09:44:41 Heparin given IA 09/05/2021 09:24:21 Verapamil 2.5mg, Ntg 100mcgs, 3000 units of Heparin given IA 09/05/2021 09:24:21 SUMMARY OF HEMODYNAMIC DATA Time AIR REST ECG 07:54:33 AO 138/72 (100) SA 09:26:07 LV 152/-10, 17 09:35:30 LV 159/-9, 18 09:35:36 LV 152/-6, 22 09:36:19 LVp 156/-6, 26 09:36:25 AOp 153/65 (103) 09:36:30 Signed By Forrest Jewell MD On 09/05/2021 10:14:26 Forrest Jewell MD
[2021-09-05 10:21] LABS: Bedside Glucose 201 mg/dL (74-106)
== END 2021-09-05 12:15 | disposition home or self-care (01) ==
PROVIDERS: PCP Internal Medicine; Referring Provider Internal Medicine Cardiovascular Disease; Visit Provider Internal Medicine Cardiovascular Disease
DX: I25.118 Atherosclerotic heart disease of native coronary artery with other forms of angina pectoris (principal); E11.9 Type 2 diabetes mellitus without complications; I10 Essential (primary) hypertension; I45.10 Unspecified right bundle-branch block; E78.5 Hyperlipidemia, unspecified; E03.9 Hypothyroidism, unspecified; R06.00 Dyspnea, unspecified; R94.39 Abnormal result of other cardiovascular function study; E66.9 Obesity, unspecified; I25.2 Old myocardial infarction; Z79.02 Long term (current) use of antithrombotics/antiplatelets; Z87.891 Personal history of nicotine dependence; Z95.5 Presence of coronary angioplasty implant and graft
CPT/HCPCS: 36415; 80048; 82962; 85027; 85610; 85730; 93306; 93458; 99152; 99153; J7040; Q9957; Q9967; A4216; C1769; C1894; C8929

== ENCOUNTER 2021-09-08 11:53 | Emergency (ER) | payer MEDICARE, MEDICAID, SELFPAY ==
[2021-09-08 11:55] VITALS: BP 161/82; PULSE 101; RESP 22; TEMP 36.2; O2SAT 95; BMI 40.7
--- NOTE | 2021-09-08 12:21 | CT_ITS ---
STUDY: CT BRAIN WITHOUT CONTRAST REASON FOR EXAM: Female, 70 years old. headache RADIATION DOSAGE (If Supplied By Facility): CTDIvol = ( 44.99 ) mGy, DLP = ( 745.49 ) mGycm TECHNIQUE: Transaxial CT imaging of the brain was performed without administration of intravenous contrast material. Individualized dose optimization techniques were used for this CT. COMPARISON: No relevant priors. FINDINGS: There is no intra-/extra-axial fluid collection, mass effect, or midline shift. The benitez/white matter junction is preserved. Hypoattenuation of periventricular and subcortical white matter suggestive of chronic small vessel ischemic disease. Mild diffuse parenchymal volume loss is noted. There is vascular calcification. The basal cisterns are patent. There is a small polyp versus retention cysts in the right maxillary sinus. Other visualized paranasal sinuses and mastoid air cells are clear. The calvarium is intact. CT/Brain/Head without Contrast IMPRESSION: No acute intracranial finding. Electronically Signed: Abhilash Gonsalez MD at 13:43 EDT ,
[2021-09-08] MEDS: Ketorolac 15 MG/ML Vial IV (12:36)
[2021-09-08] MEDS: Metoclopramide 10 MG/2 ML Vial IV (12:36)
[2021-09-08] MEDS: DiphenhydrAMINE 50 MG/ML Syringe 25 MG IV (12:36)
[2021-09-08 12:42] LABS: Absolute Lymphocyte Count 2.25 X10^3/uL (0.83-4.51); Absolute Neutrophil Count 10.8 X10^3/uL (2.0-7.7); Basophil# 0.08 X10^3/uL; Basophil% 0.6 % (0-1); Eosinophil# 0.38 X10^3/uL; Eosinophils% 2.6 % (0-5); Hematocrit 41.9 % (37-47); Hemoglobin 13.5 g/dL (12.0-15.0); Lymphocyte # 2.25 X10^3/ul (0.83-4.51); Lymphocyte % 15.6 % (19-41); Mean Corp Hgb Conc 32.2 g/dL (32-36); Mean Corpuscular Hgb 29.8 pg (27.0-32.0); Mean Corpuscular Volume 92.5 fL (81-99); Mean Platelet Vol. 10.7 fl (6.2-12.0); Monocyte# 0.84 X10^3/uL; Monocyte% 5.8 % (0-10); NRBC Flagged by Analyzer 0 % (0-5); Neutrophil # 10.77 X10^3/uL (2.7-7.7); Neutrophil % 74.7 % (47-70); Platelet Count 267 K/mm3 (150-450); RBC Distribution Width CV 12.9 % (11.6-14.6); RBC Distribution Width SD 43.7 fl (35.1-43.9); Red Blood Count 4.53 M/mm3 (4.2-5.4); White Blood Count 14.4 K/mm3 (4.4-11.0)
--- NOTE | 2021-09-08 12:48 | EX.ED.DYSGE1 ---
HPI History of Present Illness Chief Complaint: General Illness Narrative Narrative: Patient presents with gradual onset of a headache for the past 2 days, it started after a cardiac catheterization and the steroids and other medications that she got for IV dye allergy. She has no vision changes, no paresthesias or weakness no gait abnormalities. She does not feel confused. She has chronic dyspnea which is mostly exertional and some intermittent chest pain this has not changed over the past year. It has certainly not changed since the catheterization. [facility] Medical History Atherosclerotic heart disease of [place] coronary artery without angina pectoris Cardiogenic shock Carpal tunnel syndrome Diabetes Elevated WBC count Essential hypertension History of DVT (deep vein thrombosis) History of left heart catheterization (LHC) (~09/05/21) History of non-ST elevation myocardial infarction (NSTEMI) History of pneumonia Hyperlipemia Hypertension Hypothyroidism IBS (irritable bowel syndrome) Presence of stent in coronary artery (~04/10/16) Type 2 diabetes mellitus Home Medications carvedilol 3.125 mg tablet 3.125 mg PO BID #180 tabs 09/21/20 [Rx Last Taken 09/05/21] insulin NPH-regular 70-30 U-100 insulin 100 unit/mL subcutaneous pen 24 unit (0.24 mL) subcut BID #15 mL 06/07/21 [Rx Last Taken Unknown] thyroid (pork) 60 mg tablet ([place] Thyroid) 60 mg PO DAILY #60 tabs 06/16/21 [Rx Last Taken Unknown] isosorbide mononitrate 30 mg tablet,extended release 24 hr 30 mg PO DAILY #30 tabs 09/05/21 [Rx Last Taken Unknown] atorvastatin 40 mg tablet 40 mg PO QHS 09/07/21 [History Last Taken Unknown] Allergy/AdvReac Type Severity Reaction Status Date / Time levothyroxine Allergy Intermediate diarrhea Verified 09/08/21 11:58 and rash alogliptin Allergy Hives Verified 09/08/21 11:58 dulaglutide [From Trulicity] Allergy Hives Verified 09/08/21 11:58 glipizide Allergy Hives Verified 09/08/21 11:58 metformin Allergy Hives Verified 09/08/21 11:58 Penicillins [PCN] Allergy Hives Verified 09/08/21 11:58 aspirin AdvReac Severe blood Verified 09/08/21 11:58 clots canagliflozin [From Invokana] AdvReac Severe abdominal Verified 09/08/21 11:58 pain Family History Sister Breast cancer Mother Hypertension Heart disease Myocardial infarction, Onset Age: 61 Thyroid disorder Grandmother Arthritis Seizures Father CVA (cerebral vascular accident) Brother Heart disease Myocardial infarction Sister CAD (coronary artery disease) Surgical History History of excision of mass (~07/2020) History of hysterectomy History of tonsillectomy History of tubal ligation Presence of coronary angioplasty implant and graft (~04/10/16) Social History Smoking Status: Former smoker how long ago did patient quit smokin12/2015 alcohol intake: never substance use type: does not use caffeine: Yes Type: coffee Number of servings: 1 frequency: 1-2 times per week ROS ROS ED ROS Narrative Past medical history: Reviewed in [employer] Medications: Reviewed in [employer] Social history: Noncontributory Review of systems: All systems negative except as indicated General: No fever Eyes: No visual changes ENT: No upper airway congestion, normal voice Neck: No neck pain Cardiovascular: As in HPI Respiratory: As in HPI Gastrointestinal: No abdominal pain, nausea vomiting or diarrhea Genitourinary: No dysuria Musculoskeletal: Denies myalgias no difficulty with ambulation Skin: No rash Neurological: No memory loss, confusion or any focal weakness. Headache as in HPI Psych: No recent behavioral changes Hematologic: No easy bleeding or easy bruising EXAM Physical Exam Narrative Exam Narrative: Physical exam General: Well nourished, Well developed, No Acute Distress Head: Normocephalic, Atraumatic Eyes: Conjunctiva not pale ENT: Moist mucous membranes Neck: Supple, Nontender, No lymphadenopathy Cardiovascular: Regular rate, Regular rhythm Respiratory: No distress, CTA bilaterally Abdomen: Soft, Nontender, Nondistended Back: Nontender, Normal Inspection. Negative for: CVA tenderness Extremities: Nontender, No edema Skin: Normal color, No rash Neurological: Alert, Normal Strength, Normal Sensation. She is lucid coherent and has no focal deficits. Psychological: Normal affect Const Vital Signs: 09/08/21 11:55 09/08/21 12:28 Temperature 97.1 F L Temperature Source Temporal Pulse Rate 101 H Respiratory Rate 22 H Respiratory Pattern Normal Blood Pressure 161/82 H Blood Pressure Mean 108 Pulse Ox 95 Oxygen Delivery Method Room Air MDM MDM MDM Narrative Medical decision making narrative: Patient has normal work-up. She appears well. Her symptoms have now significantly improved. She had a gradual onset of headache without any new neurological symptoms she has a normal CT. I do not believe a to get a CTA or LP at this time. Should be discharged in stable condition with reassurance. Lab Data Labs: Laboratory Results - last 24 hr 09/08/21 09/08/21 12:30 12:30 WBC 14.4 H RBC 4.53 Hgb 13.5 Hct 41.9 MCV 92.5 MCH 29.8 MCHC 32.2 RDW Std Deviation 43.7 RDW Coeff of Eveline 12.9 Plt Count 267 MPV 10.7 Immature Gran % (Auto) 0.700 Neut % (Auto) 74.7 H Lymph % (Auto) 15.6 L [place] % (Auto) 5.8 Eos % (Auto) 2.6 Baso % (Auto) 0.6 Absolute Neuts (auto) 10.8 H Absolute Lymphs (auto) 2.25 Nucleated RBC % 0 Sodium 137 Potassium 4.2 Chloride 102 Carbon Dioxide 28.0 Anion Gap 7 BUN 18 Creatinine 0.96 Estim Creat Clear Calc 43.74 Est GFR (MDRD) Af Amer 74 Est GFR (MDRD) Non-Af 61 BUN/Creatinine Ratio 18.7 Glucose 287 H Calcium 9.1 Total Bilirubin 0.50 AST 20 ALT 28 Alkaline Phosphatase 96 Total Protein 7.2 Albumin 3.3 Globulin 3.9 Albumin/Globulin Ratio 0.8 L Radiography Diagnostic Testing: Clinical Impression(s) from Imaging Studies Brain CT 09/08/21 12:21 IMPRESSION: No acute intracranial finding. Electronically Signed: Abhilash Gonsalez MD at 13:43 EDT , Discharge Plan Triage Chief Complaint: General Illness ED Provider: Forrest Green Dx/Rx/DC Orders Clinical Impression: Headache, Coronary artery disease Instructions: Understanding Headache Pain Prescriptions: No Action insulin NPH and regular human 100 unit/mL (70-30) insulin pen 24 unit subcut BID Qty: 15 5RF carvedilol 3.125 mg tablet 3.125 mg PO BID Qty: 180 3RF thyroid (pork) [[place] Thyroid] 60 mg tablet 60 mg PO DAILY Qty: 60 1RF isosorbide mononitrate 30 mg tablet extended release 24 hr 30 mg PO DAILY Qty: 30 12RF atorvastatin 40 mg tablet 40 mg PO QHS Primary Care Provider: Elsy Noel Referrals: Elsy Noel MD [Primary Care Provider] - 2 Days Disposition Disposition: Home, Self Care
[2021-09-08 13:06] LABS: ALB/GLOB Ratio 0.8 RATIO (0.9-2.4); AST(SGOT) 20 U/L (15-37); Alanine Aminotransfer ALT/SGPT 28 U/L (13-56); Albumin, Serum 3.3 g/dL (3.2-5.0); Alkaline Phosphatase 96 U/L (45-117); Anion Gap 7 (5-15); BUN 18 mg/dL (7-18); BUN/Creat Ratio 18.7 RATIO (10-20); Calcium,Total 9.1 mg/dL (8.5-10.1); Chloride 102 mmol/L (98-107); Creatinine, Serum 0.96 mg/dL (0.55-1.02); EST Glomerular Filtration Rate 61 mL/min (>60); Est Glom Filt Rate - Afr Amer 74 mL/min (>60); Estimated Creatinine Clearance 43.74 ml/min; Globulin 3.9 g/dL (2.2-4.2); Glucose 287 mg/dL (74-106); Potassium 4.2 mmol/L (3.5-5.1); Protein, Total 7.2 g/dL (6.4-8.2); Sodium Level 137 mmol/L (136-145)
[2021-09-08 14:58] VITALS: BP 157/81; O2SAT 94
== END 2021-09-08 15:00 | disposition home or self-care (01) ==
PROVIDERS: Emergency Provider Emergency Medicine; PCP Internal Medicine; Visit Provider Emergency Medicine
DX: R51.9 Headache, unspecified (principal); I25.10 Atherosclerotic heart disease of native coronary artery without angina pectoris; E11.9 Type 2 diabetes mellitus without complications; E78.5 Hyperlipidemia, unspecified; I10 Essential (primary) hypertension; E03.9 Hypothyroidism, unspecified; Z79.4 Long term (current) use of insulin; Z79.899 Other long term (current) drug therapy; I25.2 Old myocardial infarction; Z87.891 Personal history of nicotine dependence; Z95.5 Presence of coronary angioplasty implant and graft
CPT/HCPCS: 70450; 80053; 85025; 96374; 96375; 99283; A4216

== ENCOUNTER 2021-11-05 02:13 | Emergency (ER) | payer MEDICARE, MEDICAID, SELFPAY ==
[2021-11-05 02:14] VITALS: BP 168/81; PULSE 94; RESP 25; TEMP 36.7; O2SAT 94; BMI 41.8
--- NOTE | 2021-11-05 02:23 | EKG12_ITS ---
Test Reason : CP Blood Pressure : / mmHG Vent. Rate : 098 BPM Atrial Rate : 098 BPM P-R Int : 142 ms QRS Dur : 118 ms QT Int : 402 ms P-R-T Axes : 062 -34 034 degrees QTc Int : 513 ms Normal sinus rhythm Left axis deviation Right bundle branch block Abnormal ECG Confirmed by DANIELLE MCARTHUR, ESTHELA ([id number]), newspaper copy editor ALLA LAINEZ ([id number]) on 11/07/2021 12:50:00 PM Referred By: BB Confirmed By:ESTHELA SANTOS MD
--- NOTE | 2021-11-05 02:25 | EDS_ITS ---
HPI History of Present Illness Chief Complaint: Chest Pain Informant: patient Onset/Context/Timing Onset: Yesterday Activity at onset: light activity Timing: Continuous (background discomfort all day), Intermittent (acute exacerb ations) and Lasts (seconds) Location: Left Chest (With occasional discomfort in her left arm associated with it) Current Severity: Moderate (During initial evaluation but abated) Maximum Severity: Moderate Worsened By: Exertion (seems to worsen intermittent episode frequency); Not Worsened By Movement of Arm, Movement of Torso, Palpation or Breathing Relieved By: Nothing Associated Symptoms: Positive for Diaphoresis and Dyspnea; Negative for Nausea, Vomiting, Cough, Lightheadedness or Palpitations Narrative Narrative: Patient started having chest pain almost 20 hours or so ago, it has been intermittent, several episodes per hour, but some hours none, continuing to have them become more frequent tonight so she presents to the emergency department. She has cardiac stents, she does not remember this feels similar to pain she had in the past or not since it has been 5 or 6 years she states, but she had a catheterization August of this year that showed multivessel disease and she was r eferred to cardiothoracic surgery for bypass consultation, at [facility]. CABG is scheduled for 11/23. Given the cath results, she was advised to discontinue her Brilinta. She is allergic to aspirin and now currently is taking no antiplatelet or anticoagulants. She has had a bit of a mild cough recently and a headache all day today, and she denies any other recent illness. No fevers or chills, myalgias, she has taken no medications for any of this today nor she done a COVID test at home. [facility] Medical History Atherosclerotic heart disease of [place] coronary artery without angina pectoris Cardiogenic shock Carpal tunnel syndrome Diabetes Elevated WBC count Essential hypertension History of DVT (deep vein thrombosis) History of left heart catheterization (LHC) (~09/05/21) History of non-ST elevation myocardial infarction (NSTEMI) History of pneumonia Hyperlipemia Hypertension Hypothyroidism IBS (irritable bowel syndrome) Presence of stent in coronary artery (~04/10/16) Type 2 diabetes mellitus Home Medications insulin NPH-regular 70-30 U-100 insulin 100 unit/mL subcutaneous pen 24 unit (0.24 mL) subcut BID #15 mL 06/07/21 [Rx Last Taken Unknown] thyroid (pork) 60 mg tablet ([place] Thyroid) 60 mg PO DAILY #60 tabs 06/16/21 [Rx Last Taken Unknown] carvedilol 3.125 mg tablet 3.125 mg PO BID #180 tabs 09/25/21 [Rx Last Taken Unknown] Allergy/AdvReac Type Severity Reaction Status Date / Time levothyroxine Allergy Intermediate diarrhea Verified 11/05/21 02:14 and rash alogliptin Allergy Hives Verified 11/05/21 02:14 dulaglutide [From Trulicity] Allergy Hives Verified 11/05/21 02:14 glipizide Allergy Hives Verified 11/05/21 02:14 metformin Allergy Hives Verified 11/05/21 02:14 Penicillins [PCN] Allergy Hives Verified 11/05/21 02:14 aspirin AdvReac Severe blood Verified 11/05/21 02:14 clots canagliflozin [From Invokana] AdvReac Severe abdominal Verified 11/05/21 02:14 pain Family History Sister Breast cancer Mother Hypertension Heart disease Myocardial infarction, Onset Age: 61 Thyroid disorder Grandmother Arthritis Seizures Father CVA (cerebral vascular accident) Brother Heart disease Myocardial infarction Sister CAD (coronary artery disease) Surgical History History of excision of mass (~07/2020) History of hysterectomy History of tonsillectomy History of tubal ligation Presence of coronary angioplasty implant and graft (~04/10/16) Social History Smoking Status: Former smoker how long ago did patient quit smokin12/2015 alcohol intake: never substance use type: does not use caffeine: Yes Type: coffee Number of servings: 1 frequency: 1-2 times per week ROS ROS ED Constitutional Constitutional ED: Reports headache(s), malaise and sweats; Denies body ache(s), chills or fever(s) Eyes Eyes: Denies change in vision or diplopia ENT ENT ED: Denies rhinorrhea or sore throat Cardiovascular Cardiovascular: Reports as per HPI and chest pain; Denies palpitations Respiratory/Chest Respiratory/Chest: Reports cough and dyspnea Gastrointestinal Gastrointestinal: Denies abdominal pain, diarrhea, nausea or vomiting Genitourinary Genitourinary ED: Denies dysuria or hematuria Musculoskeletal Musculoskeletal: Denies back pain or neck pain Integumentary Denies abscess or rash Neurologic Neurologic: Denies headache(s), paresthesias or weakness Psychiatric Psychiatric: Denies anxiety or suicidal thoughts EXAM Physical Exam Const Vital Signs: 11/05/21 02:14 11/05/21 02:39 11/05/21 02:39 Temperature 98.1 F Temperature Source Oral Pulse Rate 94 93 Respiratory Rate 25 H Blood Pressure 168/81 H 146/63 H Blood Pressure Mean 110 Pulse Ox 94 99 Oxygen Delivery Method Room Air Room Air Positive well nourished, well developed and obese General Appearance ED: well developed and NAD Nutritional Appearance: obese HEENT Reports moist mucous membranes normocephalic and atraumatic Eyes PERRL and EOMs intact bilaterally Neck full ROM and supple Chest Wall inspection of chest normal and palpation of chest normal Resp normal respiratory effort and clear to auscultation bilaterally Cardio regular rate, regular rhythm and no murmurs Peripheral Pulses: pulses 2+ throughout GI non-tender and non-distended Auscultation: normoactive bowel sounds Palpation: soft Back/Spine no CVA tenderness General Back: other FROM Extremity normal to inspection General Extremety ED: Negative for edema, pulses abnormal or tenderness General Extremity: Negative for edema or pulses abnormal Neuro oriented x3, CN's II-XII intact bilaterally and no sensory deficits noted Sensorium / Orientation: awake and alert Motor Exam: strength 5/5 throughout Skin no rashes or lesions noted and no wounds Skin Narrative: dry, not diaphoretic Heart Score History: Moderately Suspicious ECG: Normal Age: >/= 65 years Risk Factors: >/= 3 Risk Factors or History of CAD Troponin: </= Normal Limit Score: 5 MDM MDM MDM Narrative Medical decision making narrative: Patient has an EKG that she has no repolarization abnormalities or ST segment deviations or suggestion of acute ischemia. She has bifascicular block that is stable and her EKG looks like her old 1. She has a nonspecific leukocytosis which she has had on many other visits, and her enzymes are well within normal limits with a high-sensitivity troponin of 12. She confirms that she has been having discomfort all day with brief acute exacerbations in her left chest. Under the circumstances with a nonischemic EKG and negative enzymes, I do not think we need to admit her nor transfer her emergently to tertiary care. While working her up, I placed nitroglycerin paste on her chest, and gave her Tylenol for the headache, we also obtained a chest x-ray 1 view on my interpretation is normal, and a COVID test which is negative. She is feeling a little better. I gave her a GI cocktail, that helped her chest feel better still. I feel she can be safely discharged home to follow-up closely. She is already on Imdur which I would have her continue. Given that she has multivessel disease and is scheduled for CABG I would not recommend that she exert herself in any way for now. Lab Data Attestation: I reviewed the patient's lab results. Labs: Laboratory Results - last 24 hr 11/05/21 11/05/21 11/05/21 02:27 02:27 02:27 WBC 15.7 H RBC 4.84 Hgb 14.4 Hct 44.2 MCV 91.3 MCH 29.8 MCHC 32.6 RDW Std Deviation 44.1 H RDW Coeff of Eveline 13.1 Plt Count 320 MPV 10.2 Immature Gran % (Auto) 0.900 Neut % (Auto) 70.1 H Lymph % (Auto) 19.8 [place] % (Auto) 6.9 Eos % (Auto) 1.7 Baso % (Auto) 0.6 Absolute Neuts (auto) 11.0 H Absolute Lymphs (auto) 3.11 Nucleated RBC % 0 APTT 25.6 Sodium 136 Potassium 4.1 Chloride 102 Carbon Dioxide 27.0 Anion Gap 7 BUN 16 Creatinine 0.80 Estim Creat Clear Calc 51.75 Est GFR (MDRD) Af Amer 91 Est GFR (MDRD) Non-Af 75 BUN/Creatinine Ratio 19.9 Glucose 183 H Calcium 9.6 Troponin I High Sens 11/05/21 02:27 WBC RBC Hgb Hct MCV MCH MCHC RDW Std Deviation RDW Coeff of Eveline Plt Count MPV Immature Gran % (Auto) Neut % (Auto) Lymph % (Auto) [place] % (Auto) Eos % (Auto) Baso % (Auto) Absolute Neuts (auto) Absolute Lymphs (auto) Nucleated RBC % APTT Sodium Potassium Chloride Carbon Dioxide Anion Gap BUN Creatinine Estim Creat Clear Calc Est GFR (MDRD) Af Amer Est GFR (MDRD) Non-Af BUN/Creatinine Ratio Glucose Calcium Troponin I High Sens 12 Radiography Chest X-Ray - ED: 1 View, Read by ED Physician, No Acute Disease and No Infiltrates Diagnostic Testing: Clinical Impression(s) from Imaging Studies Chest X-Ray 11/05/21 02:55 IMPRESSION: No acute cardiopulmonary disease. Electronically Signed: Sandra Joseph MD at 3:27 EDT , Rhythm Strip Rhythm Strip: Sinus Rhythm Rate: 95 Ectopy: None EKG Initial EKG: Attestation: I personally reviewed and interpreted this EKG as follows: Interpretation: Sinus Rhythm, No Acute Injury Pattern, RBBB and LAFB Prior EKG tracings: available for review Prior: Unchanged Discharge Plan Triage Chief Complaint: Chest Pain ED Provider: Diony Alvarez Dx/Rx/DC Orders Clinical Impression: Left-sided chest pain, Atherosclerotic heart disease of [place] coronary artery without angina pectoris, Cough, Headache Instructions: ED Chest Pain, Uncertain Cause Prescriptions: No Action insulin NPH and regular human 100 unit/mL (70-30) insulin pen 24 unit subcut BID Qty: 15 5RF thyroid (pork) [[place] Thyroid] 60 mg tablet 60 mg PO DAILY Qty: 60 1RF carvedilol 3.125 mg tablet 3.125 mg PO BID Qty: 180 3RF Primary Care Provider: Elsy Noel Referrals: Elsy Noel MD [Primary Care Provider] - Forrest Jewell MD [Med Staff - Active Staff] - 3-5 Days if not improving Disposition Disposition: Home, Self Care
[2021-11-05 02:34] LABS: Absolute Lymphocyte Count 3.11 X10^3/uL (0.83-4.51); Basophil% 0.6 % (0-1); Eosinophil# 0.26 X10^3/uL; Eosinophils% 1.7 % (0-5); Hematocrit 44.2 % (37-47); Hemoglobin 14.4 g/dL (12.0-15.0); Lymphocyte # 3.11 X10^3/ul (0.83-4.51); Lymphocyte % 19.8 % (19-41); Mean Corp Hgb Conc 32.6 g/dL (32-36); Mean Corpuscular Hgb 29.8 pg (27.0-32.0); Mean Corpuscular Volume 91.3 fL (81-99); Mean Platelet Vol. 10.2 fl (6.2-12.0); Monocyte# 1.08 X10^3/uL; Monocyte% 6.9 % (0-10); NRBC Flagged by Analyzer 0 % (0-5); Neutrophil # 11.02 X10^3/uL (2.7-7.7); Neutrophil % 70.1 % (47-70); Platelet Count 320 K/mm3 (150-450); RBC Distribution Width CV 13.1 % (11.6-14.6); RBC Distribution Width SD 44.1 fl (35.1-43.9); Red Blood Count 4.84 M/mm3 (4.2-5.4); White Blood Count 15.7 K/mm3 (4.4-11.0)
[2021-11-05] MEDS: Acetaminophen 325 MG Tablet 650 MG PO (02:38)
[2021-11-05 02:39] VITALS: BP 146/63; PULSE 93; O2SAT 99
[2021-11-05] MEDS: Nitroglycerin Oint 1 INCH PACKET TRANSDERM. (02:39)
[2021-11-05 02:43] LABS: Partial Thromboplast Time 25.6 Seconds (24.1-36.2)
[2021-11-05 02:47] LABS: Anion Gap 7 (5-15); BUN 16 mg/dL (7-18); BUN/Creat Ratio 19.9 RATIO (10-20); Calcium,Total 9.6 mg/dL (8.5-10.1); Chloride 102 mmol/L (98-107); EST Glomerular Filtration Rate 75 mL/min (>60); Est Glom Filt Rate - Afr Amer 91 mL/min (>60); Estimated Creatinine Clearance 51.75 ml/min; Glucose 183 mg/dL (74-106); Potassium 4.1 mmol/L (3.5-5.1); Sodium Level 136 mmol/L (136-145)
--- NOTE | 2021-11-05 02:55 | RAD_ITS ---
STUDY: X-RAY CHEST REASON FOR EXAM: Female, 71 years old. chest pain TECHNIQUE: Single AP portable view of the chest. COMPARISON: 04/25/2021. FINDINGS: The lungs are clear and expanded. There is no demonstrated pleural abnormality. Normal size heart. Normal mediastinum and yris. Normal visualized pulmonary arteries. Normal visualized aortic arch and descending thoracic aorta. Normal visualized thoracic spine. There is degenerative osteoarthritis of the bilateral shoulders. There is no demonstrated abnormality of the visualized soft tissue structures of the upper abdomen. RAD/Chest 1 View (Portable) IMPRESSION: No acute cardiopulmonary disease. Electronically Signed: Sandra Joseph MD at 3:27 EDT ,
[2021-11-05 03:28] LABS: Troponin-I HS 12 pg/mL (3.0-54.0)
[2021-11-05] MEDS: Mag Hydrox/Al Hydrox/Simeth 30 ML UDC PO (03:44)
[2021-11-05 04:06] VITALS: BP 159/77; PULSE 79; RESP 20; O2SAT 95
[2021-11-05] MEDS: Ibuprofen 200 MG Tablet 400 MG PO (04:08)
== END 2021-11-05 04:15 | disposition home or self-care (01) ==
PROVIDERS: Emergency Provider Emergency Medicine; PCP Internal Medicine; Visit Provider Emergency Medicine
DX: R07.9 Chest pain, unspecified (principal); E11.9 Type 2 diabetes mellitus without complications; Z79.4 Long term (current) use of insulin; I25.10 Atherosclerotic heart disease of native coronary artery without angina pectoris; I45.2 Bifascicular block; I10 Essential (primary) hypertension; R05.9 Cough, unspecified; R51.9 Headache, unspecified; E78.5 Hyperlipidemia, unspecified; E03.9 Hypothyroidism, unspecified; I25.2 Old myocardial infarction; Z88.6 Allergy status to analgesic agent; Z86.718 Personal history of other venous thrombosis and embolism; Z87.891 Personal history of nicotine dependence; Z95.5 Presence of coronary angioplasty implant and graft
CPT/HCPCS: 71045; 80048; 84484; 85025; 85730; 87811; 93005; 99285; A4216

== ENCOUNTER → 2022-01-11 | Outpatient (CLI) | payer MEDICARE, MEDICAID, SELFPAY ==
[2022-01-11 17:14] LABS: Vitamin D,25 Hydroxy 19.4 ng/mL
[2022-01-11 17:20] LABS: ALB/GLOB Ratio 0.8 RATIO (0.9-2.4); AST(SGOT) 14 U/L (15-37); Alanine Aminotransfer ALT/SGPT 20 U/L (13-56); Albumin, Serum 3.4 g/dL (3.2-5.0); Alkaline Phosphatase 94 U/L (45-117); Anion Gap 5 (5-15); BUN 17 mg/dL (7-18); BUN/Creat Ratio 22.6 RATIO (10-20); Calcium,Total 9.5 mg/dL (8.5-10.1); Chloride 102 mmol/L (98-107); Creatinine, Serum 0.75 mg/dL (0.55-1.02); EST Glomerular Filtration Rate 81 mL/min (>60); Est Glom Filt Rate - Afr Amer 98 mL/min (>60); Free T3 3.5 pg/mL (2.18-3.98); Globulin 4.2 g/dL (2.2-4.2); Glucose 109 mg/dL (74-106); Potassium 4.2 mmol/L (3.5-5.1); Protein, Total 7.6 g/dL (6.4-8.2); Sodium Level 136 mmol/L (136-145); Thyroid Stim Hormone (TSH) 2.25 uIU/mL (0.358-3.74)
== END | disposition home or self-care (01) ==
LOC: LAB 16:28
PROVIDERS: PCP Internal Medicine; Visit Provider Internal Medicine
DX: E11.9 Type 2 diabetes mellitus without complications (principal); I10 Essential (primary) hypertension; E78.5 Hyperlipidemia, unspecified; E03.9 Hypothyroidism, unspecified; E55.9 Vitamin D deficiency, unspecified; Z98.890 Other specified postprocedural states; Z95.1 Presence of aortocoronary bypass graft; Z95.5 Presence of coronary angioplasty implant and graft
CPT/HCPCS: 36415; 80053; 82306; 83735; 84439; 84443; 84481

== ENCOUNTER 2022-01-21 15:53 | Emergency (ER) | payer MEDICARE, MEDICAID, SELFPAY ==
[2022-01-21 15:54] VITALS: BP 191/99; PULSE 82; RESP 18; TEMP 36.3; O2SAT 97; BMI 42.4
--- NOTE | 2022-01-21 16:20 | EKG12_ITS ---
Test Reason : Blood Pressure : / mmHG Vent. Rate : 083 BPM Atrial Rate : 083 BPM P-R Int : 160 ms QRS Dur : 122 ms QT Int : 440 ms P-R-T Axes : 056 -15 046 degrees QTc Int : 517 ms Normal sinus rhythm Right bundle branch block Abnormal ECG Confirmed by AUDIE MCARTHUR, DOMINIC ([id number]), web content editor ALLA LAINEZ ([id number]) on 01/24/2022 11:33:05 AM Referred By: Confirmed By:DOMINIC BRONSON MD
--- NOTE | 2022-01-21 16:21 | ED.VIS.DYS ---
HPI History of Present Illness Chief Complaint: Shortness of Breath Detail of Chief Complaint: Shortness of breath that started 1 to 2 hours prior to presentation Informant: patient Onset/Context/Timing Onset: Hours Context: sudden Timing: Continuous and Waxes and wanes Quality: Positive for Dyspnea on exertion; Negative for Orthopnea, PND or Wheezing Current Severity: Mild Maximum Severity: Moderate Worsened by: Exertion; Not Worsened By Lying flat or Coughing Relieved by: Nothing Associated Symptoms cough and rhinorrhea; Negative for post nasal drip, ear pain, fever, sore throat, subjective, chills, sweats, clear sputum, white sputum, yellow sputum or green sputum Chest Pain: Positive for Intermittent (Seconds across the left superior left chest region) and - (Described as moderate ) Narrative Narrative: Patient is a 71-year-old woman who presents with shortness of breath started 1 to 2 hours prior to presentation. She is attributed to the medication she took. She states she took a Brilinta tablet. She had discontinued and took her first dose today. She also states she bought [id number] medication for allergies and believes one of the 3 pills she took is the cause of her shortness of breath. She denies history of PE or DVT. She has room port mild congestion and rhinorrhea. She does have a mild cough. She does report shortness of breath at rest and increase shortness of breath with activity. She quit smoking 6 years ago. She denies history of COPD or asthma. She denies history of PE or DVT. She denies leg pain, swelling discoloration. She has had no recent trips or surgery. She denies history of cancer. Patient apparently had 2 episodes of diaphoresis when asked if this was associated or occurred with the chest pain she did not understand the question and states she had 2 episodes of chest pain. When asked again if she had the sweating when she had the chest pain she states she had 2 episodes of chest pain. PE Risk Factors: Negative for Cancer, OCP + Smoking + > 35, Prior DVT or PE, Recent immobilization, Recent surgery or Recent travel Prior similar symptoms: No Recent Illness/Hospitalization: No [facility] Medical History Atherosclerotic heart disease of [place] coronary artery without angina pectoris Cardiogenic shock Carpal tunnel syndrome Diabetes Elevated WBC count Essential hypertension History of DVT (deep vein thrombosis) History of left heart catheterization (LHC) (~09/05/21) History of non-ST elevation myocardial infarction (NSTEMI) History of pneumonia Hyperlipemia Hypertension Hypothyroidism IBS (irritable bowel syndrome) Presence of stent in coronary artery (~04/10/16) Type 2 diabetes mellitus Home Medications thyroid (pork) 60 mg tablet ([place] Thyroid) 60 mg PO DAILY #60 tabs 06/16/21 [Rx Last Taken Unknown] carvedilol 25 mg tablet 25 mg PO BID 12/05/21 [History Last Taken Unknown] Handicap Placard #1 ea 01/08/22 [Rx Last Taken Unknown] insulin NPH-regular 70-30 U-100 insulin 100 unit/mL subcutaneous pen 24 unit (0.24 mL) subcut BID #15 mL 01/08/22 [Rx Last Taken Unknown] potassium chloride 20 mEq tablet,extended release(part/cryst) 20 meq PO BID PRN swelling 01/11/22 [History Last Taken Unknown] ticagrelor 90 mg tablet 90 mg PO BID #180 tabs 01/11/22 [Rx Last Taken Unknown] Allergy/AdvReac Type Severity Reaction Status Date / Time levothyroxine Allergy Intermediate diarrhea Verified 01/21/22 15:59 and rash alogliptin Allergy Hives Verified 01/21/22 15:59 dulaglutide [From Trulicity] Allergy Hives Verified 01/21/22 15:59 glipizide Allergy Hives Verified 01/21/22 15:59 metformin Allergy Hives Verified 01/21/22 15:59 Penicillins [PCN] Allergy Hives Verified 01/21/22 15:59 aspirin AdvReac Severe blood Verified 01/21/22 15:59 clots canagliflozin [From Invokana] AdvReac Severe abdominal Verified 01/21/22 15:59 pain Family History Sister Breast cancer Mother Hypertension Heart disease Myocardial infarction, Onset Age: 61 Thyroid disorder Grandmother Arthritis Seizures Father CVA (cerebral vascular accident) Brother Heart disease Myocardial infarction Sister CAD (coronary artery disease) Surgical History History of coronary artery bypass surgery (~11/23/21) History of excision of mass (~07/2020) History of hysterectomy History of tonsillectomy History of tubal ligation Hx of heart bypass surgery Presence of coronary angioplasty implant and graft (~04/10/16) Social History household members: none Smoking Status: Former smoker how long ago did patient quit smokin12/2015 alcohol intake: never substance use type: does not use caffeine: Yes Type: coffee Number of servings: 1 frequency: 1-2 times per week ROS ROS ED Constitutional Constitutional ED: Denies chills, fever(s), sweats or weight loss Eyes Eyes: Denies blurry vision, change in vision or diplopia ENT ENT ED: Denies ear pain, rhinorrhea or sore throat Cardiovascular Cardiovascular: Reports chest pain; Denies orthopnea, palpitations, paroxysmal nocturnal dyspnea or racing heartbeat Respiratory/Chest Respiratory/Chest: Reports cough and dyspnea; Denies dyspnea on exertion, orthopnea or paroxysmal nocturnal dyspnea Gastrointestinal Gastrointestinal: Denies abdominal pain, constipation, diarrhea, melena or nausea Genitourinary Genitourinary ED: Denies dysuria, hematuria or urinary frequency Musculoskeletal Musculoskeletal: Denies arthralgias, back pain, myalgias or neck pain Neurologic Neurologic: Denies headache(s), paresthesias or weakness Psychiatric Psychiatric: Denies anxiety Endocrine Endocrinology: Denies cold intolerance or heat intolerance Hematologic/Lymphatic Hematologic/Lymphatic: Denies easy bleeding or easy bruising EXAM Physical Exam Const Vital Signs: 01/21/22 15:54 01/21/22 16:34 01/21/22 17:05 Temperature 97.4 F L Temperature Source Temporal Pulse Rate 82 169 H Respiratory Rate 18 85 H Respiratory Effort Short of Breath Labored Respiratory Depth Normal Respiratory Pattern Tachypnea Blood Pressure 191/99 H Blood Pressure Mean 129 Pulse Ox 97 97 Oxygen Delivery Method Room Air Room Air Room Air 01/21/22 19:15 Temperature Temperature Source Pulse Rate 83 Respiratory Rate 17 Respiratory Effort Respiratory Depth Respiratory Pattern Blood Pressure 155/55 H Blood Pressure Mean 88 Pulse Ox 96 Oxygen Delivery Method Room Air Positive well nourished, well developed, obese and unkempt; Negative for cachectic or contractures Constitutional Narrative: Since noted to be tachypneic with no use of accessory muscles walking from the restroom to her examination room. General Appearance ED: unkempt and well developed; Negative for cachectic, contractures, NAD or pallor Nutritional Appearance: obese; Negative for cachectic HEENT Reports moist mucous membranes HEENT Narrative: Head is normocephalic. Ears normal. Nares patent. Uvula midline. No erythema exudate the posterior pharynx. There is no deviation tongue with protrusion. atraumatic Eyes PERRL and EOMs intact bilaterally General Eye ED: Negative for pale conjunctiva or scleral icterus Neck no lymphadenopathy, supple, no meningeal signs and no JVD Resp normal respiratory effort and clear to auscultation bilaterally Cardio regular rate, regular rhythm, S1 normal heart sound, S2 normal heart sound and no murmurs GI non-tender, non-distended and no masses Auscultation: normoactive bowel sounds Back/Spine no CVA tenderness and normal to inspection Extremity normal to inspection General Extremety ED: Negative for edema or tenderness General Extremity: Negative for edema Neuro oriented x3, CN's II-XII intact bilaterally and no sensory deficits noted [place] Coma Scale: document GCS findings Spontaneous Obeys Commands Oriented 15 Sensorium / Orientation: alert Speech: speech normal Gait (Neuro): normal gait Motor Exam: strength 5/5 throughout Psych mental status grossly normal Appearance: unkempt Skin no wounds and skin turgor normal General Skin Exam: Negative for jaundice or pallor MDM MDM MDM Narrative Medical decision making narrative: Patient presents with dyspnea and very atypical chest pain will need to rule out cardiac versus pulmonary versus other causes. Differential diagnosis would include angina, CHF, pulmonary embolus pneumonia. Doubt CHF since she has no orthopnea, pedal edema or rales. Lab Data Attestation: I reviewed the patient's lab results. Lab results narrative: White count is elevated 16.3 thousand. Differential reveals slight shift with no bandemia. D-dimer is elevated 1.38. This is elevated even after corrected for age. Since she has pleuritic pain with shortness of breath will obtain CTA to evaluate for PE. Basic metabolic panel reveals no significant abnormality other than a glucose of 208. Labs: Laboratory Results - last 24 hr 01/21/22 01/21/22 01/21/22 16:26 16:26 16:26 WBC 16.3 H RBC 4.75 Hgb 13.6 Hct 43.2 MCV 90.9 MCH 28.6 MCHC 31.5 L RDW Std Deviation 42.5 RDW Coeff of Eveline 12.8 Plt Count 374 MPV 10.3 Immature Gran % (Auto) 1.000 H Neut % (Auto) 77.5 H Lymph % (Auto) 12.9 L Sutter % (Auto) 6.2 Eos % (Auto) 1.8 Baso % (Auto) 0.6 Absolute Neuts (auto) 12.6 H Absolute Lymphs (auto) 2.10 Nucleated RBC % 0 D-Dimer Quant (PE/DVT) 1.38 H* Sodium 134 L Potassium 4.1 Chloride 98 Carbon Dioxide 29.0 Anion Gap 7 BUN 17 Creatinine 0.91 Estim Creat Clear Calc 45.50 Est GFR (MDRD) Af Amer 78 Est GFR (MDRD) Non-Af 65 BUN/Creatinine Ratio 18.6 Glucose 208 H Calcium 10.3 H Troponin I High Sens 17 POC Glucose 01/21/22 16:52 WBC RBC Hgb Hct MCV MCH MCHC RDW Std Deviation RDW Coeff of Eveline Plt Count MPV Immature Gran % (Auto) Neut % (Auto) Lymph % (Auto) Sutter % (Auto) Eos % (Auto) Baso % (Auto) Absolute Neuts (auto) Absolute Lymphs (auto) Nucleated RBC % D-Dimer Quant (PE/DVT) Sodium Potassium Chloride Carbon Dioxide Anion Gap BUN Creatinine Estim Creat Clear Calc Est GFR (MDRD) Af Amer Est GFR (MDRD) Non-Af BUN/Creatinine Ratio Glucose Calcium Troponin I High Sens POC Glucose 215 H Radiography Diagnostic Testing: Clinical Impression(s) from Imaging Studies Chest X-Ray 01/21/22 16:36 IMPRESSION: Interval CABG procedure. There is no acute cardiopulmonary disease. Electronically Signed: Carloz Guevara DO at 17:05 EST Reading Location ID and State: [address] [place] [address] Tel [phone], Service support , Chest CTA 01/21/22 17:24 IMPRESSION: 1. No evidence of pulmonary embolus. 2. Atherosclerotic aorta without dissection or aneurysm. 3. Evidence of CABG procedure are not present on the previous study. 4. Stable left upper lobe nodule. This is unchanged from a CT June 27, 2020. Fleischner Society guidelines suggest no follow-up required. Electronically Signed: Carloz Guevara DO at 18:41 EST Reading Location ID and State: [facility] / [place] Tel [phone], Service support , EKG Initial EKG: Attestation: I personally reviewed and interpreted this EKG as follows: Interpretation: Sinus Rhythm (Rate is 83. There is right bundle branch block. MD interval 260 ms. Cures duration 120 ms. QT duration 440 ms. [place] is normal.) Treatment and Re-Evaluation Narrative: Patient is wheeze free. Since she is wheeze free will not discharged with burst of prednisone especially since she is diabetic. She was instructed how to use inhaler and the inhaler was dispensed. Discharge Plan Triage Chief Complaint: Shortness of Breath ED Provider: David Maxwell Dx/Rx/DC Orders Clinical Impression: Acute bronchitis with bronchospasm, Essential hypertension, Atherosclerotic heart disease of [place] coronary artery without angina pectoris, Pleurisy, Hyperglycemia due to type 2 diabetes mellitus Instructions: Acute Bronchitis, ED Pleurisy Prescriptions: No Action insulin NPH and regular human 100 unit/mL (70-30) insulin pen 24 unit subcut BID Qty: 15 0RF (DME) Handicap Placard See Rx Instructions .Route .MEDSUPPLY Qty: 1 0RF Rx Instructions: 1 year RX potassium chloride 20 mEq tablet,ER particles/crystals 20 meq PO BID PRN (Reason: swelling) Label Comments: take 1 tablet by mouth every morning and at bedtime ticagrelor 90 mg tablet 90 mg PO BID Qty: 180 3RF carvedilol 25 mg tablet 25 mg PO BID Rx Instructions: must administer with a meal/food thyroid (pork) [[place] Thyroid] 60 mg tablet 60 mg PO DAILY Qty: 60 1RF Primary Care Provider: Elsy Noel Referrals: Elsy Noel MD [Primary Care Provider] - 3-5 Days Activity Restrictions/Additional Instructions: 2 puffs of albuterol metered-dose inhaler every 4-6 hours for shortness of breath or wheezing. Disposition Disposition: Home, Self Care
[2022-01-21 16:34] VITALS: O2SAT 97
[2022-01-21 16:36] LABS: Absolute Neutrophil Count 12.6 X10^3/uL (2.0-7.7); Basophil# 0.09 X10^3/uL; Basophil% 0.6 % (0-1); Eosinophil# 0.29 X10^3/uL; Eosinophils% 1.8 % (0-5); Hematocrit 43.2 % (37-47); Hemoglobin 13.6 g/dL (12.0-15.0); Lymphocyte % 12.9 % (19-41); Mean Corp Hgb Conc 31.5 g/dL (32-36); Mean Corpuscular Hgb 28.6 pg (27.0-32.0); Mean Corpuscular Volume 90.9 fL (81-99); Mean Platelet Vol. 10.3 fl (6.2-12.0); Monocyte# 1.01 X10^3/uL; Monocyte% 6.2 % (0-10); NRBC Flagged by Analyzer 0 % (0-5); Neutrophil # 12.64 X10^3/uL (2.7-7.7); Neutrophil % 77.5 % (47-70); Platelet Count 374 K/mm3 (150-450); RBC Distribution Width CV 12.8 % (11.6-14.6); RBC Distribution Width SD 42.5 fl (35.1-43.9); Red Blood Count 4.75 M/mm3 (4.2-5.4); White Blood Count 16.3 K/mm3 (4.4-11.0)
--- NOTE | 2022-01-21 16:36 | RAD_ITS ---
STUDY: X-RAY CHEST REASON FOR EXAM: Female, 71 years old. Dyspnea and dyspnea on exertion. Chest pain and shortness of breath today. History of double bypass surgery one month ago. TECHNIQUE: PA and lateral views of the chest. COMPARISON: November 05, 2021. FINDINGS: The lungs are clear and expanded. There is no demonstrated pleural abnormality. Interval CABG procedure. The heart is normal in size. Normal mediastinum and yris. Normal visualized pulmonary arteries. Normal visualized aortic arch and descending thoracic aorta. Normal visualized thoracic spine. Normal visualized ribs, clavicles, and shoulders. There is no demonstrated abnormality of the visualized soft tissue structures of the upper abdomen. RAD/Chest PA and Lateral IMPRESSION: Interval CABG procedure. There is no acute cardiopulmonary disease. Electronically Signed: Carloz Guevara DO at 17:05 EST ,
[2022-01-21 16:51] LABS: D-Dimer Quantitative (DVT/PE) 1.38 FEU/ug/m (0.27-0.49)
[2022-01-21 16:59] LABS: BUN 17 mg/dL (7-18); BUN/Creat Ratio 18.6 RATIO (10-20); Creatinine, Serum 0.91 mg/dL (0.55-1.02); EST Glomerular Filtration Rate 65 mL/min (>60); Est Glom Filt Rate - Afr Amer 78 mL/min (>60); Glucose 208 mg/dL (74-106)
[2022-01-21 17:00] LABS: Anion Gap 7 (5-15); Calcium,Total 10.3 mg/dL (8.5-10.1); Chloride 98 mmol/L (98-107); Potassium 4.1 mmol/L (3.5-5.1); Sodium Level 134 mmol/L (136-145); Troponin-I HS 17 pg/mL (3.0-54.0)
[2022-01-21 17:05] VITALS: PULSE 169; RESP 85; O2SAT 97
[2022-01-21 17:10] LABS: Bedside Glucose 215 mg/dL (74-106)
--- NOTE | 2022-01-21 17:24 | CT_ITS ---
STUDY: CTA CHEST REASON FOR EXAM: Female, 71 years old. Dyspnea. Pleuritic chest pain. Elevated d-dimer. History of open heart surgery in November 2021 RADIATION DOSAGE (If Supplied By Facility): CTDIvol = ( 13.85 ) mGy, DLP = ( 501.07 ) mGycm TECHNIQUE: The examination was performed with the intravenous administration of IV 100mL [id number]. Post-processing of the angiographic images was performed, with multiplanar reformation and 3D reconstruction. Individualized dose optimization techniques were used for this CT. COMPARISON: CTA of the chest, April 25, 2021. Chest, January 21, 2022. FINDINGS: Normal enhancement of the main pulmonary artery and right and left pulmonary arteries. Normal enhancement of the bilateral peripheral pulmonary arteries. There is no demonstrated pulmonary embolism. Mild atherosclerotic changes of the thoracic aorta without aneurysm. There is no demonstrated aortic dissection. The heart is normal in size. Evidence of prior CABG procedure. No pericardial effusion. Nonspecific subcentimeter mediastinal nodes. Normal hilar regions. Normal visualized trachea and bronchi. The lungs are well expanded. 5 cm partially calcified nodule in the left upper lobe (image 171, series 2). The lungs appear otherwise clear. Normal pleura. Evidence of median sternotomy. Chest wall is otherwise unremarkable. There are degenerative changes of the shoulders. There are degenerative changes of thoracic spine. Normal visualized upper abdomen. CT/CTA Chest W/WO Contrast IMPRESSION: 1. No evidence of pulmonary embolus. 2. Atherosclerotic aorta without dissection or aneurysm. 3. Evidence of CABG procedure are not present on the previous study. 4. Stable left upper lobe nodule. This is unchanged from a CT June 27, 2020. Fleischner Society guidelines suggest no follow-up required. Electronically Signed: Carloz Guevara DO at 18:41 EST Reading Location ID and State: [address] [place] [address] Tel [phone], Service support ,
[2022-01-21] MEDS: Morphine 2 MG/ML Syringe IV (18:14)
--- NOTE | 2022-01-21 18:17 | ED.RN ---
PT REQUESTED BREATHING TREATMENT AND PAIN MEDICINE. DR VILLA. ORDERS RECEIVED
[2022-01-21 19:15] VITALS: BP 155/55; PULSE 83; RESP 17; O2SAT 96
[2022-01-21 19:56] VITALS: BP 162/60; PULSE 74; RESP 17; O2SAT 97
[2022-01-21] MEDS: Albuterol Sulfate 8 gm Inhaler (60 puffs) 2 PUFF INHALATION (20:00)
== END 2022-01-21 20:04 | disposition home or self-care (01) ==
PROVIDERS: Emergency Provider Emergency Medicine; PCP Internal Medicine; Visit Provider Emergency Medicine
DX: J20.9 Acute bronchitis, unspecified (principal); E11.65 Type 2 diabetes mellitus with hyperglycemia; Z79.4 Long term (current) use of insulin; R09.1 Pleurisy; I25.10 Atherosclerotic heart disease of native coronary artery without angina pectoris; I10 Essential (primary) hypertension; E78.5 Hyperlipidemia, unspecified; Z79.899 Other long term (current) drug therapy; Z87.891 Personal history of nicotine dependence
CPT/HCPCS: 71046; 71275; 80048; 82962; 84484; 85025; 85379; 93005; 96374; 99285; Q9967; A4216

== ENCOUNTER → 2022-06-11 | Outpatient (CLI) | payer MEDICARE, MEDICAID, SELFPAY ==
[2022-06-11 07:54] LABS: Absolute Lymphocyte Count 3.11 X10^3/uL (0.83-4.51); Absolute Neutrophil Count 9.5 X10^3/uL (2.0-7.7); Basophil# 0.08 X10^3/uL; Basophil% 0.6 % (0-1); Eosinophil# 0.31 X10^3/uL; Eosinophils% 2.2 % (0-5); Hematocrit 44.9 % (37-47); Hemoglobin 14.6 g/dL (12.0-15.0); Lymphocyte # 3.11 X10^3/ul (0.83-4.51); Lymphocyte % 22.2 % (19-41); Mean Corp Hgb Conc 32.5 g/dL (32-36); Mean Corpuscular Hgb 29.1 pg (27.0-32.0); Mean Corpuscular Volume 89.6 fL (81-99); Mean Platelet Vol. 10.5 fl (6.2-12.0); Monocyte# 0.98 X10^3/uL; NRBC Flagged by Analyzer 0 % (0-5); Neutrophil # 9.45 X10^3/uL (2.7-7.7); Neutrophil % 67.2 % (47-70); Platelet Count 316 K/mm3 (150-450); RBC Distribution Width CV 14.3 % (11.6-14.6); RBC Distribution Width SD 46.9 fl (35.1-43.9); Red Blood Count 5.01 M/mm3 (4.2-5.4)
[2022-06-11 08:37] LABS: ALB/GLOB Ratio 0.8 RATIO (0.9-2.4); AST(SGOT) 19 U/L (15-37); Alanine Aminotransfer ALT/SGPT 25 U/L (13-56); Albumin, Serum 3.3 g/dL (3.2-5.0); Alkaline Phosphatase 98 U/L (45-117); Anion Gap 5 (5-15); BUN 19 mg/dL (7-18); BUN/Creat Ratio 21.3 RATIO (10-20); Bilirubin, Direct 0.16 mg/dL (0.00-0.30); Calcium,Total 9.1 mg/dL (8.5-10.1); Chloride 102 mmol/L (98-107); Cholesterol 158 mg/dL (200); Creatinine, Serum 0.89 mg/dL (0.55-1.02); EST Glomerular Filtration Rate 66 mL/min (>60); Est Glom Filt Rate - Afr Amer 80 mL/min (>60); Free T3 2.6 pg/mL (2.18-3.98); Globulin 4.2 g/dL (2.2-4.2); Glucose 173 mg/dL (74-106); High Density Lipoprotein 51 mg/dL; Potassium 4.2 mmol/L (3.5-5.1); Protein, Total 7.5 g/dL (6.4-8.2); Sodium Level 135 mmol/L (136-145); T4 Free Direct 1.03 ng/dL (0.76-1.46); Thyroid Stim Hormone (TSH) 8.13 uIU/mL (0.358-3.74); Triglycerides 212 mg/dL; Very Low Density Lipoprotein 42 mg/dL (5-40)
[2022-06-11 09:00] LABS: Vitamin B12 296 pg/mL (211-911); Vitamin D,25 Hydroxy 24.6 ng/mL
== END | disposition home or self-care (01) ==
LOC: LAB 07:28
PROVIDERS: PCP Internal Medicine; Referring Provider Nurse Practitioner Family; Visit Provider Nurse Practitioner Family
DX: K58.9 Irritable bowel syndrome, unspecified (principal); E11.9 Type 2 diabetes mellitus without complications; I25.10 Atherosclerotic heart disease of native coronary artery without angina pectoris; I10 Essential (primary) hypertension; E78.5 Hyperlipidemia, unspecified; E03.9 Hypothyroidism, unspecified; Z95.1 Presence of aortocoronary bypass graft; E55.9 Vitamin D deficiency, unspecified
CPT/HCPCS: 36415; 80053; 80061; 82248; 82306; 82607; 84439; 84443; 84481; 85025

== ENCOUNTER 2022-07-28 12:47 | Emergency (ER) | payer MEDICARE, MEDICAID, SELFPAY ==
[2022-07-28 12:49] VITALS: BP 148/69; PULSE 78; RESP 22; TEMP 36.2; O2SAT 97; BMI 40.6
--- NOTE | 2022-07-28 13:57 | EDS_ITS ---
HPI <KIMBER Jerry - Last Filed: 07/28/22 14:02> History of Present Illness Chief Complaint: Rash Narrative Narrative: Patient presenting today with a pruritic papular rash on the lateral left thigh she noticed 2 days ago. She also has a few pruritic papules on her chest. She states she is worried that she could have shingles. She states she has been outside a lot lately and could also have gotten bit by a bug. She denies any known allergen exposure or use of any new products. She reports having a headache a few days ago but denies any current headache. She denies any fever, chills, chest pain, shortness of breath, abdominal pain, nausea, and vomiting. PFS <KIMBER Jerry - Last Filed: 07/28/22 14:02> [facility] Medical History Atherosclerotic heart disease of [place] coronary artery without angina pectoris Cardiogenic shock Carpal tunnel syndrome Diabetes Elevated WBC count Essential hypertension History of DVT (deep vein thrombosis) History of left heart catheterization (LHC) (~09/05/21) History of non-ST elevation myocardial infarction (NSTEMI) History of pneumonia Hyperlipemia Hypertension Hypothyroidism IBS (irritable bowel syndrome) Presence of stent in coronary artery (~04/10/16) Type 2 diabetes mellitus Home Medications Handicap Placard #1 ea 01/08/22 [Rx Last Taken Unknown] potassium chloride 20 mEq tablet,extended release(part/cryst) 20 meq PO BID PRN swelling 01/11/22 [History Last Taken Unknown] insulin NPH-regular 70-30 U-100 insulin 100 unit/mL subcutaneous pen See Rx Instructions subcut QAM #15 mL 06/04/22 [Rx Last Taken Unknown] carvedilol 25 mg tablet 25 mg PO BID #60 tabs 06/11/22 [Rx Last Taken Unknown] levothyroxine 100 mcg tablet 100 mcg PO DAILY #90 tabs 06/12/22 [Rx Last Taken Unknown] triamcinolone acetonide 0.1 % topical cream 1 applic topical BID #15 grams 07/28/22 [Rx Last Taken Unknown] Allergy/AdvReac Type Severity Reaction Status Date / Time levothyroxine Allergy Intermediate diarrhea Verified 07/28/22 12:48 and rash alogliptin Allergy Hives Verified 07/28/22 12:48 dulaglutide [From Trulicity] Allergy Hives Verified 07/28/22 12:48 glipizide Allergy Hives Verified 07/28/22 12:48 metformin Allergy Hives Verified 07/28/22 12:48 Penicillins [PCN] Allergy Hives Verified 07/28/22 12:48 aspirin AdvReac Severe blood Verified 07/28/22 12:48 clots canagliflozin [From Invokana] AdvReac Severe abdominal Verified 07/28/22 12:48 pain Family History Sister Breast cancer Mother Hypertension Heart disease Myocardial infarction, Onset Age: 61 Thyroid disorder Grandmother Arthritis Seizures Father CVA (cerebral vascular accident) Brother Heart disease Myocardial infarction Sister CAD (coronary artery disease) Surgical History History of coronary artery bypass surgery (~11/23/21) History of excision of mass (~07/2020) History of hysterectomy History of tonsillectomy History of tubal ligation Hx of heart bypass surgery Presence of coronary angioplasty implant and graft (~04/10/16) Social History household members: none Smoking Status: Former smoker how long ago did patient quit smokin12/2015 alcohol intake: never substance use type: does not use caffeine: Yes Type: coffee Number of servings: 1 frequency: 1-2 times per week ROS <KIMBER Jerry - Last Filed: 07/28/22 14:02> ROS ED Constitutional Constitutional ED: Denies chills or fever(s) Cardiovascular Cardiovascular: Denies chest pain Respiratory/Chest Respiratory/Chest: Denies cough or dyspnea Gastrointestinal Gastrointestinal: Denies abdominal pain, nausea or vomiting Musculoskeletal Musculoskeletal: Denies arthralgias or myalgias Integumentary Reports rash; Denies abscess or Abrasions Neurologic Neurologic: Denies weakness Psychiatric Psychiatric: Denies anxiety or depression Allergic/Immunologic Allergic/Immunologic ED: Denies lip swelling or mouth swelling EXAM <KIMBER Jerry - Last Filed: 07/28/22 14:02> Physical Exam Const Vital Signs: 07/28/22 12:49 Temperature 97.2 F L Temperature Source Temporal Pulse Rate 78 Respiratory Rate 22 H Blood Pressure 148/69 H Blood Pressure Mean 95 Pulse Ox 97 Oxygen Delivery Method Room Air Positive well nourished, well developed and no apparent distress General Appearance ED: well developed HEENT Reports normocephalic and head/scalp atraumatic Mouth ED: Yes moist mucous membranes normal Eyes PERRL and EOMs intact bilaterally Neck full ROM and supple Chest Wall inspection of chest normal Resp normal respiratory effort and clear to auscultation bilaterally Cardio regular rate and regular rhythm GI soft to palpation, non-tender, non-distended and no masses Back/Spine normal ROM and normal to inspection Extremity normal to inspection and full ROM Neuro oriented x3, CN's II-XII intact bilaterally, moves all extremities, no focal motor deficits and no sensory deficits noted Sensorium / Orientation: awake and alert Psych mental status grossly normal and thought process normal Skin no wounds Skin Narrative: Multiple erythemic papules on patient's left lateral thigh, a few erythemic papules on patient's chest. No signs of any cellulitis or infection. <Dr. Eb Parmar, - Last Filed: 07/28/22 19:39> Physical Exam Const Vital Signs: 07/28/22 12:49 Temperature 97.2 F L Temperature Source Temporal Pulse Rate 78 Respiratory Rate 22 H Blood Pressure 148/69 H Blood Pressure Mean 95 Pulse Ox 97 Oxygen Delivery Method Room Air MDM <KIMBER Jerry - Last Filed: 07/28/22 14:02> [facility] Narrative Medical decision making narrative: Patient presenting with a pruritic papular rash located on her left lateral thigh as well as a few scattered papules on her chest. She is worried that she has shingles. This rash is not consistent with shingles, it is more consistent with a contact dermatitis. She has been outside a lot more recently with the warm weather, it is possible that she came into contact with some sort of allergen. She denies any new products or contact with any known allergen. The rash does not look infected in any way, there is no cellulitis. I have given her prescription for topical steroid cream and she is to follow-up with her PCP. She has been given return instructions and is comfortable with plan. She will be discharged home in stable condition. <Dr. Eb Le, DO - Last Filed: 07/28/22 19:39> MDM MDM Narrative Medical decision making narrative: Patient presenting with a pruritic papular rash located on her left lateral thigh as well as a few scattered papules on her chest. She is worried that she has shingles. This rash is not consistent with shingles, it is more consistent with a contact dermatitis. She has been outside a lot more recently with the warm weather, it is possible that she came into contact with some sort of allergen. She denies any new products or contact with any known allergen. The rash does not look infected in any way, there is no cellulitis. I have given her prescription for topical steroid cream and she is to follow-up with her PCP. She has been given return instructions and is comfortable with plan. She will be discharged home in stable condition. 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 I perform my own [id number] evaluation. I agree with the plan of work-up. Pruritic rash left thigh 2 days ago also noted upper chest. Has been outdoors, no new meds. She is concerned of shingles. Denies any significant pain. Exam scattered patchy papules left outer mid thigh there is scabbing. There is no vesicle lesions. Upper chest left side to papules. Also scabbed. No vesicles. Nontender. Clinically low concerns for shingles due to multiple areas involved, no pruritic lesions, concerns more for contact dermatitis, will treat with topical steroids. Outpatient follow-up. Discharge Plan Triage Chief Complaint: Rash Other Complaint: Headache ED Midlevel Provider: Billie Baig ED Provider: Eb Parmar Dx/Rx/DC Orders Clinical Impression: Contact dermatitis Instructions: ED Contact Dermatitis Prescriptions: New triamcinolone acetonide 0.1 % cream 1 applic topical BID Qty: 15 0RF No Action (DME) Handicap Placard See Rx Instructions .Route .MEDSUPPLY Qty: 1 0RF Rx Instructions: 1 year RX potassium chloride 20 mEq tablet,ER particles/crystals 20 meq PO BID PRN (Reason: swelling) Label Comments: take 1 tablet by mouth every morning and at bedtime insulin NPH and regular human 100 unit/mL (70-30) insulin pen See Rx Instructions subcut QAM Qty: 15 5RF Rx Instructions: NOVOLIN 70/30 26 units sq in am 30 units sq in pm carvedilol 25 mg tablet 25 mg PO BID Qty: 60 11RF Rx Instructions: must administer with a meal/food levothyroxine 100 mcg tablet 100 mcg PO DAILY Qty: 90 1RF Primary Care Provider: Elsy Noel Referrals: Elsy Noel MD [Primary Care Provider] - 3-5 Days if not improving Activity Restrictions/Additional Instructions: Apply cream as prescribed and return for any worsening of symptoms. Disposition Disposition: Home, Self Care Discharge Date/Time: 07/28/22 13:53
== END 2022-07-28 13:53 | disposition home or self-care (01) ==
PROVIDERS: Emergency Provider Emergency Medicine; PCP Internal Medicine; Visit Provider Emergency Medicine
DX: L25.9 Unspecified contact dermatitis, unspecified cause (principal); E11.9 Type 2 diabetes mellitus without complications; Z79.4 Long term (current) use of insulin; I25.10 Atherosclerotic heart disease of native coronary artery without angina pectoris; I10 Essential (primary) hypertension; E78.5 Hyperlipidemia, unspecified; E03.9 Hypothyroidism, unspecified; I25.2 Old myocardial infarction; Z79.890 Hormone replacement therapy; Z79.899 Other long term (current) drug therapy; Z87.891 Personal history of nicotine dependence; Z86.718 Personal history of other venous thrombosis and embolism
CPT/HCPCS: 99282

== ENCOUNTER → 2022-09-29 | Outpatient (CLI) | payer MEDICARE, MEDICAID, SELFPAY ==
[2022-09-29 10:36] LABS: Free T3 2.4 pg/mL (2.18-3.98); T4 Free Direct 1.22 ng/dL (0.76-1.46); Thyroid Stim Hormone (TSH) 5.77 uIU/mL (0.358-3.74)
== END | disposition home or self-care (01) ==
LOC: LAB 08:59
PROVIDERS: PCP Internal Medicine; Visit Provider Internal Medicine
DX: E03.9 Hypothyroidism, unspecified (principal)
CPT/HCPCS: 36415; 84439; 84443; 84481

== ENCOUNTER → 2023-02-04 | Outpatient (CLI) | payer MEDICARE, MEDICAID, SELFPAY ==
[2023-02-04 11:18] LABS: Free T3 2.3 pg/mL (2.18-3.98); T4 Free Direct 1.07 ng/dL (0.76-1.46); Thyroid Stim Hormone (TSH) 4.17 uIU/mL (0.358-3.74)
[2023-02-04 11:21] LABS: Anion Gap 5 (5-15); BUN 12 mg/dL (7-18); BUN/Creat Ratio 13.7 RATIO (10-20); Chloride 99 mmol/L (98-107); Cholesterol 155 mg/dL (200); Creatinine, Serum 0.87 mg/dL (0.55-1.02); EST Glomerular Filtration Rate 68 mL/min (>60); Est Glom Filt Rate - Afr Amer 82 mL/min (>60); Glucose 220 mg/dL (74-106); High Density Lipoprotein 50 mg/dL; Potassium 4.4 mmol/L (3.5-5.1); Sodium Level 134 mmol/L (136-145); Triglycerides 194 mg/dL; Very Low Density Lipoprotein 39 mg/dL (5-40)
== END | disposition home or self-care (01) ==
LOC: LAB 10:05
PROVIDERS: PCP Internal Medicine; Referring Provider Internal Medicine Cardiovascular Disease; Visit Provider Internal Medicine Cardiovascular Disease
DX: E03.9 Hypothyroidism, unspecified (principal); I25.10 Atherosclerotic heart disease of native coronary artery without angina pectoris; I10 Essential (primary) hypertension; E78.5 Hyperlipidemia, unspecified
CPT/HCPCS: 36415; 80048; 80061; 84439; 84443; 84481

== ENCOUNTER 2023-09-02 15:23 | Emergency (ER) | payer MEDICARE, MEDICAID, SELFPAY ==
[2023-09-02 15:25] VITALS: BP 203/93; PULSE 83; RESP 24; TEMP 36; O2SAT 95; BMI 42.2
[2023-09-02 15:38] VITALS: O2SAT 95
--- NOTE | 2023-09-02 16:21 | ED.VIS.DYS ---
HPI History of Present Illness Chief Complaint: Shortness of Breath Informant: patient Onset/Context/Timing Onset: Today Context: sudden Timing: Intermittent Quality: Positive for Dyspnea on exertion Worsened by: Exertion Relieved by: - (Laying flat) Associated Symptoms Negative for cough, rhinorrhea, post nasal drip, ear pain, fever, sore throat, chills, sweats, clear sputum, white sputum, yellow sputum or green sputum Chest Pain: Positive for Intermittent and - (Heaviness) Narrative Narrative: Patient presents with shortness of breath that began today. Patient states it began rather suddenly. Patient states she was recently started back on her Brilinta. Patient states she took her first dose today. Patient states that soon after she took this medication, she started feeling short of breath. Patient states it became worse with any activity. Patient states it got better when she laid flat. Patient admits to some heavy sensation over her chest. Patient states it is over the lower substernal area. Patient also admits to some dizziness and headache. [facility] Medical History History of left heart catheterization (LHC) (~09/05/21) Abnormal nuclear stress test Dyspnea on exertion Mass of lip Elevated WBC count History of DVT (deep vein thrombosis) Presence of stent in coronary artery (~04/10/16) History of non-ST elevation myocardial infarction (NSTEMI) Cardiogenic shock Type 2 diabetes mellitus Atherosclerotic heart disease of [place] coronary artery without angina pectoris Essential hypertension Carpal tunnel syndrome Hyperlipemia Hypertension Hypothyroidism History of pneumonia IBS (irritable bowel syndrome) Diabetes Home Medications ?Medication ?Instructions ?Recorded ?Last Taken ?Type levothyroxine 112 mcg tablet 112 mcg PO DAILY #90 tabs 10/01/22 Unknown Rx clopidogrel 75 mg tablet 75 mg PO DAILY #90 tabs 01/28/23 Unknown Rx insulin NPH-regular 70-30 U-100 See Rx Instructions subcut QAM #15 06/25/23 Unknown Rx insulin 100 unit/mL subcutaneous mL pen carvedilol 25 mg tablet 25 mg PO BID #60 tabs 07/18/23 Unknown Rx Allergy/AdvReac Type Severity Reaction Status Date / Time alogliptin Allergy Hives Verified 09/02/23 15:25 dulaglutide (From [facility]) Allergy Hives Verified 09/02/23 15:25 glipizide Allergy Hives Verified 09/02/23 15:25 metformin Allergy Hives Verified 09/02/23 15:25 Penicillins (PCN) Allergy Hives Verified 09/02/23 15:25 aspirin AdvReac Severe blood Verified 09/02/23 15:25 clots canagliflozin (From Invokana) AdvReac Severe abdominal Verified 09/02/23 15:25 pain Family History Sister Breast cancer Mother Hypertension Heart disease Myocardial infarction, Onset Age: 61 Thyroid disorder Grandmother Arthritis Seizures Father CVA (cerebral vascular accident) Brother Heart disease Myocardial infarction Sister CAD (coronary artery disease) Surgical History Hx of heart bypass surgery History of coronary artery bypass surgery (~11/23/21) History of excision of mass (~07/2020) Presence of coronary angioplasty implant and graft (~04/10/16) History of tubal ligation History of hysterectomy History of tonsillectomy Social History household members: none Smoking Status: Former smoker how long ago did patient quit smokin12/2015 alcohol intake: never substance use type: does not use caffeine: Yes Type: coffee Number of servings: 1 frequency: 1-2 times per week ROS ROS ED Constitutional Constitutional ED: Denies chills or fever(s) Eyes Eyes: Denies blurry vision or change in vision ENT ENT ED: Denies rhinorrhea or sore throat Cardiovascular Cardiovascular: Reports chest pain; Denies palpitations Respiratory/Chest Respiratory/Chest: Reports dyspnea; Denies cough Gastrointestinal Gastrointestinal: Denies nausea or vomiting Genitourinary Genitourinary ED: Denies dysuria or hematuria Musculoskeletal Musculoskeletal: Denies back pain or neck pain Integumentary Reports rash; Denies abscess Neurologic Neurologic: Reports headache(s); Denies weakness Allergic/Immunologic Allergic/Immunologic ED: Denies mouth swelling or urticaria EXAM Physical Exam Const Vital Signs: 09/02/23 15:25 09/02/23 15:38 09/02/23 17:24 Temperature 96.8 F L Temperature Source Temporal Pulse Rate 83 77 Respiratory Rate 24 H 14 Respiratory Effort Short of Breath Respiratory Depth Shallow Blood Pressure 203/93 H 184/90 H Blood Pressure Mean 129 121 Pulse Ox 95 93 Oxygen Delivery Method Room Air Room Air Room Air Positive well nourished and well developed General Appearance ED: well developed and NAD HEENT Reports moist mucous membranes Neck supple, no meningeal signs and no JVD Resp normal respiratory effort and clear to auscultation bilaterally Cardio regular rate and regular rhythm GI non-tender and non-distended Palpation: soft Extremity normal to inspection General Extremety ED: Negative for edema or tenderness General Extremity: Negative for edema Neuro oriented x3, CN's II-XII intact bilaterally and no sensory deficits noted Zaheer Coma Scale: document GCS findings Spontaneous Obeys Commands Oriented 15 Sensorium / Orientation: alert Speech: speech normal Motor Exam: strength 5/5 throughout Psych mental status grossly normal MDM MDM MDM Narrative Medical decision making narrative: Differential diagnosis includes anxiety, cardiac dysrhythmia, cardiac ischemia, electrolyte abnormality, pneumonia, pneumothorax, and pulmonary embolism. EKG will be obtained to assess for cardiac dysrhythmia and cardiac ischemia. Chest x-ray will be obtained to assess for pneumonia and pneumothorax. CBC will be obtained to assess for leukocytosis or anemia. Basic metabolic profile will be obtained to assess for electrolyte abnormality and renal function. High-sensitivity troponin will be obtained to assess for cardiac ischemia. D-dimer will be obtained to assess for pulmonary embolism. Lab Data Attestation: I reviewed the patient's lab results. Lab results narrative: CBC was reviewed. There is a mild leukocytosis of 13.6. This is consistent with previous results however. The remainder is within normal limits. Basic metabolic profile was reviewed and was essentially within normal limits with the exception of an elevated glucose of 276. Urinalysis was reviewed. There is no evidence of urinary tract infection or hematuria. Labs: Laboratory Results - last 24 hr 09/02/23 09/02/23 16:40 16:50 WBC 13.6 H RBC 5.18 Hgb 15.1 H Hct 46.8 MCV 90.3 MCH 29.2 MCHC 32.3 RDW Std Deviation 42.4 RDW Coeff of Eveline 12.8 Plt Count 309 MPV 10.8 Immature Gran % (Auto) 0.700 Neut % (Auto) 76.4 H Lymph % (Auto) 14.3 L [place] % (Auto) 6.0 Eos % (Auto) 2.0 Baso % (Auto) 0.6 Absolute Neuts (auto) 10.4 H Absolute Lymphs (auto) 1.95 Nucleated RBC % 0 D-Dimer Quant (PE/DVT) 0.40 Sodium 136 Potassium 4.2 Chloride 101 Carbon Dioxide 27.0 Anion Gap 8 BUN 19 H Creatinine 0.95 Estim Creat Clear Calc 61.67 Est GFR (MDRD) Af Amer 74 Est GFR (MDRD) Non-Af 62 BUN/Creatinine Ratio 20.0 Glucose 276 H Calcium 9.4 Troponin I High Sens 12 Urine Color Yellow Urine Clarity Clear Urine pH 8.0 Ur Specific [place] 1.010 Urine Protein Negative Urine Glucose (UA) 1000 H Urine Ketones Negative Urine Occult Blood Negative Urine Nitrite Negative Urine Bilirubin Negative Urine Urobilinogen Normal Ur Leukocyte Esterase Negative Urine RBC 0 SEEN Urine WBC 0 SEEN Ur Squamous Epith Cells 0-5 SEEN Urine Bacteria 0 SEEN Urine Mucus 0 SEEN Radiography Chest X-Ray - ED: 2 View, Read by ED Physician and Read by Radiologist Diagnostic Testing: Clinical Impression(s) from Imaging Studies Chest X-Ray 09/02/23 17:00 IMPRESSION: Diffuse bilateral perihilar interstitial infiltrates or noncardiogenic pulmonary edema Electronically Signed: Malachi Lindsay MD at 17:23 EDT , PA and lateral chest x-ray was obtained. There are 2 views. On my independent interpretation, there are diffuse bilateral perihilar interstitial infiltrates or noncardiogenic pulmonary edema. Bony thorax is normal. There is no cardiomegaly noted. Radiologist also interpreted the x-rays and agrees. EKG Initial EKG: Attestation: I personally reviewed and interpreted this EKG as follows: Interpretation: Sinus Rhythm (72), No Acute Injury Pattern and RBBB Comments: EKG was obtained. On my independent interpretation, it shows normal sinus rhythm with a rate of 72. NH interval was normal at 166 ms. QRS interval was slightly prolonged at 134 ms. QTc interval was 483 ms. [place] was normal at -7. There are no acute ST or T wave changes noted. Prior EKG tracings: available for review Prior: Unchanged (01/21/2022) Treatment and Re-Evaluation :: Prior to patient receiving her results, she told nursing staff that she wanted to leave. Patient states she did not want to wait any longer for her test results. Patient was advised that there is a delay due to the metabolic panel machine being broken in the lab. Patient will sign out AGAINST MEDICAL ADVICE. Patient was instructed to follow-up with her primary care physician in 5 to 7 days. Patient was instructed to return if worse in any way. Patient understood and was agreeable with the plan. All questions were answered. Discharge Plan Triage Chief Complaint: Shortness of Breath ED Provider: Nathan Pritchard Dx/Rx/DC Orders Clinical Impression: Dyspnea, Hypertension Instructions: ED Dyspnea Prescriptions: No Action clopidogrel 75 mg tablet 75 mg PO DAILY Qty: 90 3RF levothyroxine 112 mcg tablet 112 mcg PO DAILY Qty: 90 1RF insulin NPH and regular human 100 unit/mL (70-30) insulin pen See Rx Instructions subcut QAM Qty: 15 5RF Rx Instructions: NOVOLIN 70/30 26 units sq in am 30 units sq in pm carvedilol 25 mg tablet 25 mg PO BID Qty: 60 11RF Rx Instructions: must administer with a meal/food Primary Care Provider: Elsy Noel Referrals: Elsy Noel MD [Primary Care Provider] - Print Language: Thai Disposition Disposition: Home, Self Care Discharge Date/Time: 09/02/23 18:14
[2023-09-02] MEDS: Ipratropium/Albuterol Sulfate 3 ML AMPUL.NEB INHALATION (16:43)
[2023-09-02 16:57] LABS: Bacteria 0 SEEN /hpf (None Seen); Mucous, Urine 0 SEEN /hpf (<or=2+); Red Blood Cells-Urine 0 SEEN /hpf (0-5); White Blood Cells 0 SEEN /hpf (0-5)
--- NOTE | 2023-09-02 17:00 | RAD_ITS ---
STUDY: X-RAY CHEST REASON FOR EXAM: Female, 72 years old. Dyspnea TECHNIQUE: PA and lateral COMPARISON: January 21, 2022 FINDINGS: Diffuse bilateral perihilar interstitial filtrate or noncardiogenic pulmonary edema. There is no demonstrated pleural abnormality. Normal size heart. Normal mediastinum and yris. Normal visualized pulmonary arteries. Normal visualized aortic arch and descending thoracic aorta. Postop change status post median sternotomy and CABG. Normal visualized thoracic spine. Normal visualized ribs, clavicles, and shoulders. There is no demonstrated abnormality of the visualized soft tissue structures of the upper abdomen. RAD/Chest PA and Lateral IMPRESSION: Diffuse bilateral perihilar interstitial infiltrates or noncardiogenic pulmonary edema Electronically Signed: Malachi Lindsay MD at 17:23 EDT ,
[2023-09-02 17:04] LABS: Absolute Lymphocyte Count 1.95 X10^3/uL (0.83-4.51); Absolute Neutrophil Count 10.4 X10^3/uL (2.0-7.7); Basophil# 0.08 X10^3/uL; Basophil% 0.6 % (0-1); Eosinophil# 0.27 X10^3/uL; Hematocrit 46.8 % (37-47); Hemoglobin 15.1 g/dL (12.0-15.0); Lymphocyte # 1.95 X10^3/ul (0.83-4.51); Lymphocyte % 14.3 % (19-41); Mean Corp Hgb Conc 32.3 g/dL (32-36); Mean Corpuscular Hgb 29.2 pg (27.0-32.0); Mean Corpuscular Volume 90.3 fL (81-99); Mean Platelet Vol. 10.8 fl (6.2-12.0); Monocyte# 0.82 X10^3/uL; NRBC Flagged by Analyzer 0 % (0-5); Neutrophil # 10.38 X10^3/uL (2.7-7.7); Neutrophil % 76.4 % (47-70); Platelet Count 309 K/mm3 (150-450); RBC Distribution Width CV 12.8 % (11.6-14.6); RBC Distribution Width SD 42.4 fl (35.1-43.9); Red Blood Count 5.18 M/mm3 (4.2-5.4); White Blood Count 13.6 K/mm3 (4.4-11.0)
[2023-09-02 17:04] LABS: Color, Urine Yellow (Yellow); Glucose, Dipstick 1000 mg/dl (Normal); Ketone-Dipstick Negative (Negative); Leukocyte Esterase-Dipstick Negative /ul (Negative); Nitrite-Dipstick Negative (Negative); Occult Blood-Urine Negative /ul (Negative); Protein-Dipstick Negative (Negative); Urine Bilirubin Dipstick Negative (Negative); Urine Clarity Clear (Clear); Urine Urobilinogen Normal (Normal)
[2023-09-02 17:19] LABS: Squamous Epithelial Cells - UA 0-5 SEEN /hpf (5-10)
[2023-09-02 17:24] VITALS: BP 184/90; PULSE 77; RESP 14; O2SAT 93
[2023-09-02 18:09] LABS: Anion Gap 8 (5-15); BUN 19 mg/dL (7-18); Calcium,Total 9.4 mg/dL (8.5-10.1); Chloride 101 mmol/L (98-107); Creatinine, Serum 0.95 mg/dL (0.55-1.02); EST Glomerular Filtration Rate 62 mL/min (>60); Est Glom Filt Rate - Afr Amer 74 mL/min (>60); Estimated Creatinine Clearance 61.67 ml/min; Glucose 276 mg/dL (74-106); Potassium 4.2 mmol/L (3.5-5.1); Sodium Level 136 mmol/L (136-145); Troponin-I HS 12 pg/mL (3.0-54.0)
--- NOTE | 2023-09-02 18:10 | ED.RN ---
Patient insisting on leaving. Dr. Pritchard notified. AMA paperwork signed.
== END 2023-09-02 18:14 | disposition left against medical advice (07) ==
LOC: ED 16:33
PROVIDERS: Emergency Provider Emergency Medicine; PCP Internal Medicine; Visit Provider Emergency Medicine
DX: R06.00 Dyspnea, unspecified (principal); Z79.4 Long term (current) use of insulin; E11.9 Type 2 diabetes mellitus without complications; I10 Essential (primary) hypertension; I25.10 Atherosclerotic heart disease of native coronary artery without angina pectoris; Z95.5 Presence of coronary angioplasty implant and graft; E78.5 Hyperlipidemia, unspecified; E03.9 Hypothyroidism, unspecified; Z79.02 Long term (current) use of antithrombotics/antiplatelets; Z79.890 Hormone replacement therapy; Z79.899 Other long term (current) drug therapy; Z87.891 Personal history of nicotine dependence
CPT/HCPCS: 71046; 80048; 81001; 84484; 85025; 85379; 93005; 94640; 99283; A4216

== ENCOUNTER 2023-09-03 06:23 | Emergency (ER) | payer MEDICARE, MEDICAID, SELFPAY ==
[2023-09-03 06:25] VITALS: BP 178/70; PULSE 95; RESP 22; TEMP 36.9; O2SAT 94; BMI 41.1
[2023-09-03 06:30] VITALS: BP 178/70; PULSE 95; RESP 20; TEMP 36.9; O2SAT 94
[2023-09-03 06:33] VITALS: O2SAT 94
--- NOTE | 2023-09-03 06:38 | EKG12_ITS ---
Test Reason : SOB Blood Pressure : / mmHG Vent. Rate : 090 BPM Atrial Rate : 090 BPM P-R Int : 150 ms QRS Dur : 130 ms QT Int : 442 ms P-R-T Axes : 053 -06 062 degrees QTc Int : 540 ms Sinus rhythm with Premature atrial complexes Possible Left atrial enlargement Right bundle branch block Abnormal ECG Confirmed by AUDIE MCARTHUR, DOMINIC ([id number]), managing editor ALLA LAINEZ ([id number]) on 09/05/2023 8:13:25 AM Referred By: ODETTE Confirmed By:DOMINIC BRONSON MD
[2023-09-03 06:50] LABS: Bedside Glucose 295 mg/dL (74-106)
--- NOTE | 2023-09-03 07:07 | EKG12_ITS ---
Test Reason : SOB Blood Pressure : / mmHG Vent. Rate : 072 BPM Atrial Rate : 072 BPM P-R Int : 166 ms QRS Dur : 134 ms QT Int : 442 ms P-R-T Axes : 059 -07 058 degrees QTc Int : 483 ms Normal sinus rhythm Right bundle branch block Abnormal ECG Confirmed by AUDIE MCARTHUR, DOMINIC ([id number]), multimedia editor ALLA LAINEZ ([id number]) on 09/03/2023 11:26:35 AM Referred By: Confirmed By:DOMINIC BRONSON MD
--- NOTE | 2023-09-03 07:07 | CT_ITS ---
STUDY: CT ABDOMEN AND PELVIS WITH CONTRAST REASON FOR EXAM: Female, 72 years old. LLQ abd pain. Diarrhea. Shortness of breath. RADIATION DOSAGE (If Supplied By Facility): CTDIvol = ( 15.38 ) mGy, DLP = ( 1256.19 ) mGycm TECHNIQUE: Transaxial images were obtained from the dome of the diaphragm to the symphysis pubis without oral contrast. IV 100mL Isovue-300 was administered. Sagittal and coronal images were reconstructed. Individualized dose optimization techniques were used for this CT. COMPARISON: None. FINDINGS: Mild degree of increased linear markings at the lung bases suggestive of mild atelectasis and/or scarring. Prior CABG. Coronary calcification. There is decreased attenuation of the liver consistent with steatosis. Normal gallbladder and extrahepatic biliary system. Normal spleen. Normal pancreas. Normal bilateral adrenal glands. Normal right kidney. Normal left kidney. Normal visualized stomach. Normal small intestine. There are multiple colonic diverticula consistent with diverticulosis. The appendix is visualized and appears normal. There is diffuse atherosclerotic calcification of the abdominal aorta, without a demonstrated aneurysm. Normal inferior vena cava. There is a small retroperitoneal lymphadenopathy with enlarged nodes no greater than 10mm in the short axis diameter. Normal urinary bladder. There is absence of the uterus consistent with a prior hysterectomy. There is a small umbilical hernia containing fat. There are mild degenerative changes of the visualized lumbar spine. CT/Abdomen/Pelvis W IV Cont ONLY IMPRESSION: Sigmoid diverticulosis without evidence of acute diverticulitis at this time. Fatty infiltration of the liver. Electronically Signed: Roel Moreno MD at 8:32 EDT ,
--- NOTE | 2023-09-03 07:09 | ED.VIS.GI ---
HPI HPI - GI History of Present Illness Chief Complaint: Shortness of Breath Informant: patient Abdominal Pain/Flank Pain Onset: Today and Yesterday Context: Gradual Onset Timing: Continuous Current Severity: Mild Maximum Severity: Mild Nausea/Vomiting/Emesis GI Symptom: Positive for Nausea and Vomiting Onset: Today and Yesterday Severity: Mild Diarrhea/Melena/Hematochezia GI Symptom: Positive for Diarrhea Onset: Today and Yesterday Stool Quality: Positive for Loose Severity: Mild Associated Symptoms Associated Symptoms: Negative for Dysuria, Frequency, Hematuria or Urgency Narrative Narrative: 72-year-old female history of diabetes, CAD with stent and prior CABG. Says she just was not feeling well yesterday. She has had nausea vomiting and diarrhea. States she has had left lower quadrant abdominal pain. And she is just felt short of breath. Some very minimal chest discomfort. Shortness of breath is worse with exertion. She denies any fever. Denies any dysuria. She was actually in the emergency department yesterday had to leave due to family issues and signed out AGAINST MEDICAL ADVICE. Prior similar symptoms: Yes Recent Illness/Hospitalization: No PFSH PFSH Medical History History of left heart catheterization (LHC) (~09/05/21) Abnormal nuclear stress test Dyspnea on exertion Mass of lip Elevated WBC count History of DVT (deep vein thrombosis) Presence of stent in coronary artery (~04/10/16) History of non-ST elevation myocardial infarction (NSTEMI) Cardiogenic shock Type 2 diabetes mellitus Atherosclerotic heart disease of [place] coronary artery without angina pectoris Essential hypertension Carpal tunnel syndrome Hyperlipemia Hypertension Hypothyroidism History of pneumonia IBS (irritable bowel syndrome) Diabetes Home Medications ?Medication ?Instructions ?Recorded ?Last Taken ?Type levothyroxine 112 mcg tablet 112 mcg PO DAILY #90 tabs 10/01/22 Unknown Rx clopidogrel 75 mg tablet 75 mg PO DAILY #90 tabs 01/28/23 Unknown Rx insulin NPH-regular 70-30 U-100 See Rx Instructions subcut QAM #15 06/25/23 Unknown Rx insulin 100 unit/mL subcutaneous mL pen carvedilol 25 mg tablet 25 mg PO BID #60 tabs 07/18/23 Unknown Rx Allergy/AdvReac Type Severity Reaction Status Date / Time alogliptin Allergy Hives Verified 06/18/24 06:31 dulaglutide (From Trulicity) Allergy Hives Verified 09/03/23 06:31 glipizide Allergy Hives Verified 09/03/23 06:31 metformin Allergy Hives Verified 09/03/23 06:31 Penicillins (PCN) Allergy Hives Verified 09/03/23 06:31 aspirin AdvReac Severe blood Verified 09/03/23 06:31 clots canagliflozin (From Invokana) AdvReac Severe abdominal Verified 09/03/23 06:31 pain Family History Sister Breast cancer Mother Hypertension Heart disease Myocardial infarction, Onset Age: 61 Thyroid disorder Grandmother Arthritis Seizures Father CVA (cerebral vascular accident) Brother Heart disease Myocardial infarction Sister CAD (coronary artery disease) Surgical History Hx of heart bypass surgery History of coronary artery bypass surgery (~11/23/21) History of excision of mass (~07/2020) Presence of coronary angioplasty implant and graft (~04/10/16) History of tubal ligation History of hysterectomy History of tonsillectomy Social History household members: none Smoking Status: Former smoker how long ago did patient quit smokin12/2015 alcohol intake: never substance use type: does not use caffeine: Yes Type: coffee Number of servings: 1 frequency: 1-2 times per week ROS ROS ED ROS Narrative Nausea, vomiting diarrhea. Shortness of breath. Review of Systems ROS Unobtainable: Denies due to encephalopathy Constitutional Constitutional ED: Denies chills or fever(s) ENT ENT ED: Denies ear pain Cardiovascular Cardiovascular: Denies chest pain or palpitations Respiratory/Chest Respiratory/Chest: Reports dyspnea; Denies cough Gastrointestinal Gastrointestinal: Reports abdominal pain, diarrhea, nausea and vomiting; Denies constipation or melena Genitourinary Genitourinary ED: Denies dysuria or hematuria Musculoskeletal Musculoskeletal: Denies arthralgias Integumentary Denies abscess Neurologic Neurologic: Denies headache(s) Psychiatric Psychiatric: Denies anxiety Hematologic/Lymphatic Hematologic/Lymphatic: Denies easy bleeding Allergic/Immunologic Allergic/Immunologic ED: Denies mouth swelling, tongue swelling or urticaria EXAM Physical Exam Narrative Exam Narrative: 72-year-old female no acute distress vital signs stable afebrile. Pulse ox 94% on room air no signs hypoxia. H EENT exam unremarkable. Neck nontender. Lungs clear to auscultation bilaterally. Heart regular rate and rhythm rate about 90 no murmur. Abdomen is soft nondistended normal bowel sounds no peritoneal signs. Mild left lower quadrant tenderness. No hernia or mass. No pulsatile mass. Right upper and lower quadrants are unremarkable. No distention. Moving all 4 extremities. Nontender no edema. Normal strength. Neurologically she is awake and alert no focal motor deficits. Const Vital Signs: 09/03/23 06:25 09/03/23 06:30 09/03/23 06:33 Temperature 98.5 F 98.5 F Temperature Source Oral Oral Pulse Rate 95 95 Respiratory Rate 22 H 20 H Respiratory Effort Short of Breath Labored Blood Pressure 178/70 H 178/70 H Blood Pressure Mean 106 106 Pulse Ox 94 94 Oxygen Delivery Method Room Air Room Air Room Air 09/03/23 07:14 09/03/23 08:25 Temperature Temperature Source Pulse Rate 64 Respiratory Rate 16 Respiratory Effort Blood Pressure 156/78 H Blood Pressure Mean 104 Pulse Ox 98 Oxygen Delivery Method Room Air Room Air Positive well nourished and well developed; Negative for cachectic, contractures or unkempt General Appearance ED: well developed and NAD; Negative for unkempt, cachectic, contractures or pallor Nutritional Appearance: Negative for cachectic HEENT Reports moist mucous membranes normocephalic and atraumatic; Negative for trauma or tenderness Eyes PERRL and EOMs intact bilaterally General Eye ED: Negative for pale conjunctiva or scleral icterus Neck no lymphadenopathy, supple and no JVD General: Negative for tenderness Lymph Lymphatic: Negative for other Resp normal respiratory effort and clear to auscultation bilaterally Effort and Inspection: Negative for respiratory distress or retractions Auscultation: Negative for rales, rhonchi, wheezes or diminished lung sounds Cardio regular rate, regular rhythm, S1 normal heart sound, S2 normal heart sound and no murmurs Rate: Negative for bradycardia or tachycardic Rhythm: Negative for abnormal rhythm GI non-distended and no masses; Negative for non-tender GI Narrative: Mild left lower quadrant abdominal tenderness. Inspection: Negative for abdominal distention Auscultation: normoactive bowel sounds Palpation: soft and tender; Negative for guarding, hernia, mass, pulsatile mass or rebound tenderness present Back/Spine no CVA tenderness General Back: Negative for CVA tenderness Cervical Spine: Negative for cervical spine tenderness Thoracic Spine / Upper Back: Negative for thoracic spinal tenderness Lumbar Spine / Lower Back: Negative for lumbar spinal tenderness Coccyx: Negative for other Extremity full ROM General Extremety ED: Negative for edema or tenderness General Extremity: Negative for edema Neuro CN's II-XII intact bilaterally and moves all extremities Sensorium / Orientation: alert, oriented to person, oriented to place and oriented to time; Negative for orientation impaired, confused, lethargic or stuporous Motor Exam: strength 5/5 throughout Psych mental status grossly normal and thought process normal Appearance: Negative for unkempt Attitude: No agitated Mood & Affect: Negative for depressed, anxious or tearful Skin no wounds General Skin Exam: Negative for jaundice or pallor Lesions: no lesions Rashes: no rashes Trauma: Negative for abrasion Nails: Negative for discolored MDM MDM MDM Narrative Medical decision making narrative: 72-year-old female with nausea vomiting diarrhea. Also shortness of breath and left lower quadrant abdominal pain. She undergo cardiac workup with a chest x-ray also a CT of her abdomen for possible diverticulitis. She received IV fluids and Zofran for nausea. Repeat exam at both 9:15 and 10:05 AM. Patient is doing well. Patient's had a leukocytosis before. I do not have any specific sources of infection. Her abdomen is benign. She has a negative respiratory workup. Patient to be discharged home with outpatient follow-up. History & Record Review Discussion w/independent historian: Patient Additional record(s) reviewed:: Prior inpatient record, Prior outpatient record, Prior ED visit and Prior labs Lab Data Attestation: I reviewed the patient's lab results. Lab results narrative: CBC shows white count 18.4. H&H is 16 and 50. Platelets 333. Electrolytes show sodium 131. Gap 7. Normal BUN and creatinine of 17.9. Troponin is normal at 14. Glucose 278. UA no nitrates. No white or red cells. 2+ bacteria. CT of the abdomen and chest x-ray are basically unremarkable. Labs: Laboratory Results - last 24 hr 09/03/23 09/03/23 09/03/23 06:32 07:34 09:15 WBC 18.4 H RBC 5.50 H Hgb 16.0 H Hct 50.1 H MCV 91.1 MCH 29.1 MCHC 31.9 L RDW Std Deviation 42.5 RDW Coeff of Eveline 12.8 Plt Count 333 MPV 10.7 Immature Gran % (Auto) 0.700 Neut % (Auto) 82.3 H Lymph % (Auto) 11.4 L Glenn % (Auto) 4.8 Eos % (Auto) 0.4 Baso % (Auto) 0.4 Absolute Neuts (auto) 15.2 H Absolute Lymphs (auto) 2.10 Nucleated RBC % 0 Sodium 131 L Potassium 4.1 Chloride 98 Carbon Dioxide 26.0 Anion Gap 7 BUN 17 Creatinine 0.90 Estim Creat Clear Calc 64.13 Est GFR (MDRD) Af Amer 79 Est GFR (MDRD) Non-Af 65 BUN/Creatinine Ratio 18.8 Glucose 278 H Calcium 9.7 Troponin I High Sens 14 Urine Color Yellow Urine Clarity Clear Urine pH 6.5 Ur Specific [place] 1.010 Urine Protein 15 H Urine Glucose (UA) 250 H Urine Ketones 50 H Urine Occult Blood Negative Urine Nitrite Negative Urine Bilirubin Negative Urine Urobilinogen Normal Ur Leukocyte Esterase 25 H Urine RBC 0 SEEN Urine WBC 0-5 SEEN Ur Squamous Epith Cells 0-5 SEEN Urine Bacteria 2+ Urine Mucus 0 SEEN POC Glucose 295 H Radiography Chest X-Ray - ED: 1 View, Read by ED Physician, Read by Radiologist, Heart, Lungs, Mediastinum, Bony Structures, No Acute Disease and Chronic Changes Diagnostic Testing: Clinical Impression(s) from Imaging Studies Abdomen/Pelvis CT 09/03/23 07:07 IMPRESSION: Sigmoid diverticulosis without evidence of acute diverticulitis at this time. Fatty infiltration of the liver. Electronically Signed: Roel Moreno MD at 8:32 EDT , Chest X-Ray 09/03/23 08:10 IMPRESSION: Status post CABG. No acute abnormality is seen. Electronically Signed: Roel Moreno MD at 8:33 EDT , Chest x-ray, portable, single view shows no acute abnormality. Prior CABG with sternal wires. Normal cardiac silhouette. Normal Rhythm Strip Rhythm Strip: Sinus Rhythm Rate: 90 Ectopy: PAC(s) EKG Initial EKG: Attestation: I personally reviewed and interpreted this EKG as follows: Interpretation: Sinus Rhythm, No Acute Injury Pattern and RBBB Comments: Normal sinus rhythm rate of 90. PACs. Right bundle branch block. No acute signs of MN or ischemia. Discharge Plan Triage Chief Complaint: Shortness of Breath ED Provider: Ravi Lamb Dx/Rx/DC Orders Prescriptions: No Action clopidogrel 75 mg tablet 75 mg PO DAILY Qty: 90 3RF Patient Comments: took yesterday for the first time in two years levothyroxine 112 mcg tablet 112 mcg PO DAILY Qty: 90 1RF insulin NPH and regular human 100 unit/mL (70-30) insulin pen See Rx Instructions subcut QAM Qty: 15 5RF Rx Instructions: NOVOLIN 70/30 26 units sq in am 30 units sq in pm carvedilol 25 mg tablet 25 mg PO BID Qty: 60 11RF Rx Instructions: must administer with a meal/food Primary Care Provider: Elsy Noel Referrals: Elsy Noel MD [Primary Care Provider] - Print Language: Chinese
[2023-09-03] MEDS: Ondansetron 4 MG/2 ML Vial IV (07:35)
[2023-09-03] MEDS: 0.9% Normal Saline (1000mL) 1,000 ML 999 ML IV (07:35)
[2023-09-03 07:43] LABS: Absolute Neutrophil Count 15.2 X10^3/uL (2.0-7.7); Basophil# 0.08 X10^3/uL; Basophil% 0.4 % (0-1); Eosinophil# 0.07 X10^3/uL; Eosinophils% 0.4 % (0-5); Hematocrit 50.1 % (37-47); Lymphocyte % 11.4 % (19-41); Mean Corp Hgb Conc 31.9 g/dL (32-36); Mean Corpuscular Hgb 29.1 pg (27.0-32.0); Mean Corpuscular Volume 91.1 fL (81-99); Mean Platelet Vol. 10.7 fl (6.2-12.0); Monocyte# 0.88 X10^3/uL; Monocyte% 4.8 % (0-10); NRBC Flagged by Analyzer 0 % (0-5); Neutrophil # 15.16 X10^3/uL (2.7-7.7); Neutrophil % 82.3 % (47-70); Platelet Count 333 K/mm3 (150-450); RBC Distribution Width CV 12.8 % (11.6-14.6); RBC Distribution Width SD 42.5 fl (35.1-43.9); White Blood Count 18.4 K/mm3 (4.4-11.0)
[2023-09-03 08:00] LABS: Anion Gap 7 (5-15); BUN 17 mg/dL (7-18); BUN/Creat Ratio 18.8 RATIO (10-20); Calcium,Total 9.7 mg/dL (8.5-10.1); Chloride 98 mmol/L (98-107); EST Glomerular Filtration Rate 65 mL/min (>60); Est Glom Filt Rate - Afr Amer 79 mL/min (>60); Estimated Creatinine Clearance 64.13 ml/min; Glucose 278 mg/dL (74-106); Potassium 4.1 mmol/L (3.5-5.1); Sodium Level 131 mmol/L (136-145); Troponin-I HS 14 pg/mL (3.0-54.0)
--- NOTE | 2023-09-03 08:10 | RAD_ITS ---
STUDY: X-RAY CHEST REASON FOR EXAM: Female, 72 years old. Chest pain TECHNIQUE: Single AP portable view of the chest. COMPARISON: Comparison is made with prior study dated September 02, 2023. FINDINGS: EKG electrodes are seen. The lungs are clear and expanded. There is no demonstrated pleural abnormality. Sternal cerclage wires and vascular clips are present from a prior sternotomy and coronary artery bypass graft procedure (CABG). Normal mediastinum and yris. Normal visualized pulmonary arteries. Normal visualized aortic arch and descending thoracic aorta. Normal visualized thoracic spine. Normal visualized ribs, clavicles, and shoulders. There is no demonstrated abnormality of the visualized soft tissue structures of the upper abdomen. RAD/Chest 1 View (Portable) IMPRESSION: Status post CABG. No acute abnormality is seen. Electronically Signed: Roel Moreno MD at 8:33 EDT ,
[2023-09-03 08:25] VITALS: BP 156/78; PULSE 64; RESP 16; O2SAT 98
[2023-09-03 09:23] LABS: Mucous, Urine 0 SEEN /hpf (<or=2+); Red Blood Cells-Urine 0 SEEN /hpf (0-5)
[2023-09-03 09:28] LABS: Color, Urine Yellow (Yellow); Glucose, Dipstick 250 mg/dl (Normal); Ketone-Dipstick 50 mg/dl (Negative); Leukocyte Esterase-Dipstick 25 /ul (Negative); Nitrite-Dipstick Negative (Negative); Occult Blood-Urine Negative /ul (Negative); Protein-Dipstick 15 mg/dl (Negative); Urine Bilirubin Dipstick Negative (Negative); Urine Clarity Clear (Clear); Urine Urobilinogen Normal (Normal); Urine pH 6.5 (5.0 - 8.0)
[2023-09-03 09:43] LABS: Squamous Epithelial Cells - UA 0-5 SEEN /hpf (5-10); White Blood Cells 0-5 SEEN /hpf (0-5)
[2023-09-03 09:44] LABS: Bacteria 2+ /hpf (None Seen)
[2023-09-03 10:00] VITALS: BP 148/76; PULSE 64; RESP 18; O2SAT 92
[2023-09-03 10:33] VITALS: BP 138/78; PULSE 78; RESP 18; TEMP 36.6; O2SAT 92
== END 2023-09-03 10:34 | disposition home or self-care (01) ==
PROVIDERS: Emergency Provider Emergency Medicine; PCP Internal Medicine; Visit Provider Emergency Medicine
DX: R06.02 Shortness of breath (principal); E11.9 Type 2 diabetes mellitus without complications; Z79.4 Long term (current) use of insulin; R11.2 Nausea with vomiting, unspecified; I25.10 Atherosclerotic heart disease of native coronary artery without angina pectoris; I10 Essential (primary) hypertension; R10.32 Left lower quadrant pain; E78.5 Hyperlipidemia, unspecified; E03.9 Hypothyroidism, unspecified; R19.7 Diarrhea, unspecified; Z79.02 Long term (current) use of antithrombotics/antiplatelets; Z79.890 Hormone replacement therapy; Z79.899 Other long term (current) drug therapy; Z95.1 Presence of aortocoronary bypass graft; Z95.5 Presence of coronary angioplasty implant and graft; Z87.891 Personal history of nicotine dependence
CPT/HCPCS: 71045; 74177; 80048; 81001; 82962; 84484; 85025; 93005; 96361; 96374; 99285; J7030; P9612; Q9967; A4216; J2405

== ENCOUNTER 2024-01-15 09:24 | Emergency (ER) | payer MEDICARE, MEDICAID, SELFPAY ==
[2024-01-15] VITALS (8 sets, daily range): BP systolic 137–224; BP diastolic 66–109; PULSE 67–82; RESP 11–26; TEMP 36.2–37; O2SAT 94–99; BMI 42.3
--- NOTE | 2024-01-15 09:38 | RAD_ITS ---
EXAM: XR CHEST, 1 VIEW CLINICAL INDICATION: chest pain TECHNIQUE: Frontal view of the chest. COMPARISON: 09/03/2023. FINDINGS: LUNGS AND PLEURAL SPACES: Unremarkable. No consolidation or edema. No pneumothorax. No effusion. HEART: Mild cardiomegaly. MEDIASTINUM: Central airways and mediastinal contour are unremarkable. BONES/JOINTS: Intact sternal wires. No acute fracture. SOFT TISSUES: Unremarkable. RAD/Chest 1 View (Portable) IMPRESSION: No acute findings in the chest and unchanged. Electronically Signed: Hemanth Quinn MD at 11:20 EDT ,
--- NOTE | 2024-01-15 09:38 | EKG12_ITS ---
Test Reason : SOB Blood Pressure : */* mmHG Vent. Rate : 72 BPM Atrial Rate : 72 BPM P-R Int : 158 ms QRS Dur : 132 ms QT Int : 434 ms P-R-T Axes : 53 -12 34 degrees QTcB Int : 475 ms Normal sinus rhythm Right bundle branch block Abnormal ECG Confirmed by AUDIE MCARTHUR, DOMINIC ([id number]), managing editor ALLA LAINEZ ([id number]) on 01/17/2024 8:14:37 AM Referred By: JESUS/SIMONE Confirmed By: DOMINIC BRONSON MD
[2024-01-15 09:56] LABS: Absolute Lymphocyte Count 2.13 X10^3/uL (0.83-4.51); Absolute Neutrophil Count 10.5 X10^3/uL (2.0-7.7); Basophil% 0.7 % (0-1); Eosinophil# 0.24 X10^3/uL; Eosinophils% 1.7 % (0-5); Hematocrit 45.9 % (37-47); Hemoglobin 15.2 g/dL (12.0-15.0); Lymphocyte # 2.13 X10^3/ul (0.83-4.51); Lymphocyte % 15.1 % (19-41); Mean Corp Hgb Conc 33.1 g/dL (32-36); Mean Corpuscular Hgb 29.9 pg (27.0-32.0); Mean Corpuscular Volume 90.2 fL (81-99); Mean Platelet Vol. 10.7 fl (6.2-12.0); Monocyte# 0.95 X10^3/uL; Monocyte% 6.7 % (0-10); NRBC Flagged by Analyzer 0 % (0-5); Neutrophil # 10.54 X10^3/uL (2.7-7.7); Neutrophil % 74.7 % (47-70); Platelet Count 348 K/mm3 (150-450); RBC Distribution Width SD 42.7 fl (35.1-43.9); Red Blood Count 5.09 M/mm3 (4.2-5.4); White Blood Count 14.1 K/mm3 (4.4-11.0)
[2024-01-15 10:22] LABS: Anion Gap 7 (5-15); BUN 17 mg/dL (7-18); BUN/Creat Ratio 18.8 RATIO (10-20); Calcium,Total 9.7 mg/dL (8.5-10.1); Chloride 101 mmol/L (98-107); Creatinine, Serum 0.91 mg/dL (0.55-1.02); EST Glomerular Filtration Rate 65 mL/min (>60); Est Glom Filt Rate - Afr Amer 79 mL/min (>60); Estimated Creatinine Clearance 63.57 ml/min; Glucose 231 mg/dL (74-106); Potassium 4.3 mmol/L (3.5-5.1); Sodium Level 136 mmol/L (136-145); Troponin-I HS (w/2H Reflex) 10 pg/mL (3.0-54.0)
--- NOTE | 2024-01-15 11:07 | ED.VIS.DYS ---
HPI History of Present Illness Chief Complaint: Shortness of Breath Informant: patient Onset/Context/Timing Onset: Yesterday Context: gradual Timing: Continuous Quality: Positive for Dyspnea on exertion and Orthopnea Worsened by: Exertion and Lying flat Relieved by: Nothing Associated Symptoms subjective and chills; Negative for cough, rhinorrhea, post nasal drip, ear pain, fever, sore throat, clear sputum, white sputum, yellow sputum or green sputum Chest Pain: Positive for Dull and Aching Narrative Narrative: Patient presents with shortness of breath that began yesterday. Patient states it is gradually getting worse. Patient states it is worse with laying flat and with any exertion. Patient states nothing seems to help with it. Patient states she has had similar symptoms in the past which have been helped with aerosols and inhalers. Patient admits to some subjective chills but denies any fevers. Patient admits to some mild pain in the substernal area. Patient describes it as dull and aching. Patient denies any neck or back pain. Patient denies any nausea or vomiting. Patient admits to history of DVT when she was . Patient does not take any anticoagulants and has not had a DVT in many years. PE Risk Factors: Positive for Prior DVT or PE; Negative for Cancer, OCP + Smoking + > 35, Recent immobilization, Recent surgery or Recent travel Prior similar symptoms: Yes PFSH PFSH Medical History History of left heart catheterization (LHC) (~09/05/21) Abnormal nuclear stress test Dyspnea on exertion Mass of lip Elevated WBC count History of DVT (deep vein thrombosis) Presence of stent in coronary artery (~04/10/16) History of non-ST elevation myocardial infarction (NSTEMI) Cardiogenic shock Type 2 diabetes mellitus Atherosclerotic heart disease of [place] coronary artery without angina pectoris Essential hypertension Carpal tunnel syndrome Hyperlipemia Hypertension Hypothyroidism History of pneumonia IBS (irritable bowel syndrome) Diabetes Home Medications ?Medication ?Instructions ?Recorded ?Last Taken ?Type levothyroxine 112 mcg tablet 112 mcg PO DAILY #90 tabs 10/01/22 Unknown Rx clopidogrel 75 mg tablet 75 mg PO DAILY #90 tabs 01/28/23 Unknown Rx insulin NPH-regular 70-30 U-100 See Rx Instructions subcut QA #15 06/25/23 Unknown Rx insulin 100 unit/mL subcutaneous mL pen carvedilol 25 mg tablet 25 mg PO BID #60 tabs 12/16/23 Unknown Rx Allergy/AdvReac Type Severity Reaction Status Date / Time alogliptin Allergy Hives Verified 01/15/24 09:25 dulaglutide (From Trulicity) Allergy Hives Verified 01/15/24 09:25 glipizide Allergy Hives Verified 01/15/24 09:25 metformin Allergy Hives Verified 01/15/24 09:25 Penicillins (PCN) Allergy Hives Verified 01/15/24 09:25 aspirin AdvReac Severe blood Verified 01/15/24 09:25 clots canagliflozin (From Invokana) AdvReac Severe abdominal Verified 01/15/24 09:25 pain Family History Sister Breast cancer Mother Hypertension Heart disease Myocardial infarction, Onset Age: 61 Thyroid disorder Grandmother Arthritis Seizures Father CVA (cerebral vascular accident) Brother Heart disease Myocardial infarction Sister CAD (coronary artery disease) Surgical History Hx of heart bypass surgery History of coronary artery bypass surgery (~11/23/21) History of excision of mass (~07/2020) Presence of coronary angioplasty implant and graft (~04/10/16) History of tubal ligation History of hysterectomy History of tonsillectomy Social History household members: none Smoking Status: Former smoker how long ago did patient quit smokin12/2015 alcohol intake: never substance use type: does not use caffeine: Yes Type: coffee Number of servings: 1 frequency: 1-2 times per week ROS ROS ED Constitutional Constitutional ED: Denies chills or fever(s) Eyes Eyes: Denies blurry vision or change in vision ENT ENT ED: Denies rhinorrhea or sore throat Cardiovascular Cardiovascular: Reports chest pain; Denies palpitations Respiratory/Chest Respiratory/Chest: Reports dyspnea; Denies cough Gastrointestinal Gastrointestinal: Denies nausea or vomiting Genitourinary Genitourinary ED: Denies dysuria or hematuria Musculoskeletal Musculoskeletal: Denies back pain or neck pain Integumentary Denies abscess or rash Neurologic Neurologic: Denies headache(s) or weakness Allergic/Immunologic Allergic/Immunologic ED: Denies mouth swelling or urticaria EXAM Physical Exam Const Vital Signs: 01/15/24 09:25 01/15/24 09:38 01/15/24 09:40 Temperature 98.6 F Temperature Source Oral Pulse Rate 82 Respiratory Rate 26 H Respiratory Effort Normal Non-Labored Respiratory Depth Normal Respiratory Pattern Normal Blood Pressure 224/109 H Blood Pressure Mean 147 Pulse Ox 99 95 Oxygen Delivery Method Room Air Room Air Room Air 01/15/24 09:41 01/15/24 10:48 01/15/24 11:47 Temperature 97.3 F L 97.4 F L Temperature Source Oral Oral Pulse Rate 67 72 69 Respiratory Rate 11 L 17 20 H Respiratory Effort Respiratory Depth Respiratory Pattern Normal Blood Pressure 161/66 H 157/71 H Blood Pressure Mean 97 99 Pulse Ox 96 94 Oxygen Delivery Method Room Air Room Air 01/15/24 11:56 01/15/24 12:29 Temperature 97.2 F L 97.2 F L Temperature Source Oral Oral Pulse Rate 71 79 Respiratory Rate 16 15 Respiratory Effort Respiratory Depth Respiratory Pattern Blood Pressure 157/71 H 137/66 H Blood Pressure Mean 99 89 Pulse Ox 95 96 Oxygen Delivery Method Room Air Room Air Positive well nourished and well developed General Appearance ED: well developed and NAD HEENT Reports moist mucous membranes Neck supple, no meningeal signs and no JVD Resp normal respiratory effort Auscultation: diminished lung sounds bilateral lower Cardio regular rate and regular rhythm GI non-tender and non-distended Palpation: soft Extremity normal to inspection General Extremety ED: Negative for edema or tenderness General Extremity: Negative for edema Neuro oriented x3, CN's II-XII intact bilaterally and no sensory deficits noted Zaheer Coma Scale: document GCS findings Spontaneous Obeys Commands Oriented 15 Sensorium / Orientation: alert Motor Exam: strength 5/5 throughout Psych mental status grossly normal MDM MDM MDM Narrative Medical decision making narrative: Differential diagnosis includes cardiac dysrhythmia, cardiac ischemia, pneumonia, pneumothorax, COPD exacerbation, reactive airway disease, GERD, and anxiety. EKG will be obtained to assess for cardiac dysrhythmia and cardiac ischemia. Chest x-ray will be obtained to assess for pneumonia and pneumothorax. CBC will be obtained to assess for leukocytosis and anemia. Basic metabolic profile will be obtained to assess for electrolyte abnormality and renal function. High-sensitivity troponin will be obtained to assess for cardiac ischemia. 2-hour repeat high-sensitivity troponin will be obtained to assess for ongoing cardiac ischemia. History & Record Review Additional record(s) reviewed:: Prior labs Lab Data Attestation: I reviewed the patient's lab results. Lab results narrative: CBC was reviewed. There is a mild leukocytosis of 14.1. This was improved from previous result. The remainder was within normal limits. Basic metabolic profile was reviewed. There is a glucose of 231. The remainder is within normal limits. Anion gap was normal. High-sensitivity troponin was reviewed and was normal at 10. 2-hour repeat high-sensitivity troponin was reviewed and was normal at 9. Labs: Laboratory Results - last 24 hr 01/15/24 01/15/24 09:37 11:37 WBC 14.1 H RBC 5.09 Hgb 15.2 H Hct 45.9 MCV 90.2 MCH 29.9 MCHC 33.1 RDW Std Deviation 42.7 RDW Coeff of Eveline 13.0 Plt Count 348 MPV 10.7 Immature Gran % (Auto) 1.100 H Neut % (Auto) 74.7 H Lymph % (Auto) 15.1 L [place] % (Auto) 6.7 Eos % (Auto) 1.7 Baso % (Auto) 0.7 Absolute Neuts (auto) 10.5 H Absolute Lymphs (auto) 2.13 Nucleated RBC % 0 Sodium 136 Potassium 4.3 Chloride 101 Carbon Dioxide 28.0 Anion Gap 7 BUN 17 Creatinine 0.91 Estim Creat Clear Calc 63.57 Est GFR (MDRD) Af Amer 79 Est GFR (MDRD) Non-Af 65 BUN/Creatinine Ratio 18.8 Glucose 231 H Calcium 9.7 Troponin I High Sens 10 9 Radiography Chest X-Ray - ED: 1 View, Read by ED Physician, Read by Radiologist and No Acute Disease Diagnostic Testing: Clinical Impression(s) from Imaging Studies Chest X-Ray 01/15/24 09:38 IMPRESSION: No acute findings in the chest and unchanged. Electronically Signed: Hemanth Quinn MD at 11:20 EDT , Portable 1 view chest x-ray was obtained. On my independent interpretation, lung singer are clear. There is normal cardiac silhouette. Bony thorax is normal. There is no acute process noted. Radiologist also interpreted the x-ray and agrees. EKG Initial EKG: Attestation: I personally reviewed and interpreted this EKG as follows: Interpretation: Sinus Rhythm, RBBB and Non-Specific ST Changes Comments: EKG was obtained. On my independent interpretation, it shows a normal sinus rhythm with a rate of 72. [place] interval was normal at 158 ms. QRS interval slightly prolonged at 132 ms. QTc interval was normal at 475 ms. There is borderline left axis deviation at -12. There is a right bundle branch block pattern noted. There are nonspecific ST-T wave changes noted. Prior EKG tracings: available for review Prior: Unchanged (09/03/2019) Treatment and Re-Evaluation :: Patient was given a DuoNeb aerosol here. Patient felt better after this. The patient wanted to leave and go home. Patient did not want to wait for any discharge instructions. Patient was instructed to follow-up with her primary care physician in 5 to 7 days. Discharge Plan Triage Chief Complaint: Shortness of Breath ED Provider: Nathan Pritchard Dx/Rx/DC Orders Clinical Impression: Dyspnea on exertion, Hypertension Instructions: ED Dyspnea Prescriptions: No Action clopidogrel 75 mg tablet 75 mg PO DAILY Qty: 90 3RF Patient Comments: took yesterday for the first time in two years levothyroxine 112 mcg tablet 112 mcg PO DAILY Qty: 90 1RF insulin NPH and regular human 100 unit/mL (70-30) insulin pen See Rx Instructions subcut QAM Qty: 15 5RF Rx Instructions: NOVOLIN 70/30 26 units sq in am 30 units sq in pm carvedilol 25 mg tablet 25 mg PO BID Qty: 60 11RF Rx Instructions: must administer with a meal/food Primary Care Provider: Elsy Noel Referrals: Elsy Noel MD [Primary Care Provider] - Print Language: [place] Disposition Disposition: Elopement Discharge Date/Time: 01/15/24 12:48
[2024-01-15] MEDS: Ipratropium/Albuterol Sulfate 3 ML AMPUL.NEB INHALATION (11:45)
[2024-01-15 11:51] LABS: Reflex Troponin-HS? (from REC) Y
[2024-01-15 12:09] LABS: Troponin-I HS 9 pg/mL (3.0-54.0)
--- NOTE | 2024-01-15 12:44 | ED.RN ---
PT STATES THAT SHE IN UNABLE TO STAY TO WAIT FOR RESULTS ANY LONGER DUE TO SOMEONE ELSE NEEDING THE CAR TO GO TO WORK, THIS RN STATES UNDERSTANDING. CHARGE NURSE ÓSCAR GIVES PT HER OPTIONS AND TELLS PATIENT TO FOLLOW UP WITH PRIMARY CARE DOCTOR. PT STATES UNDERSTANDING AND APOLOGIZES FOR NEEDING TO LEAVE. DR CAGLE NOTIFED.
== END 2024-01-15 12:48 | disposition left against medical advice (07) ==
PROVIDERS: Emergency Provider Emergency Medicine; PCP Internal Medicine; Visit Provider Emergency Medicine
DX: R06.09 Other forms of dyspnea (principal); E11.9 Type 2 diabetes mellitus without complications; Z79.4 Long term (current) use of insulin; I25.10 Atherosclerotic heart disease of native coronary artery without angina pectoris; I10 Essential (primary) hypertension; E78.5 Hyperlipidemia, unspecified; E03.9 Hypothyroidism, unspecified; R68.83 Chills (without fever); I25.2 Old myocardial infarction; Z79.02 Long term (current) use of antithrombotics/antiplatelets; Z79.890 Hormone replacement therapy; Z79.899 Other long term (current) drug therapy; Z86.718 Personal history of other venous thrombosis and embolism; Z87.891 Personal history of nicotine dependence; Z95.1 Presence of aortocoronary bypass graft; Z95.5 Presence of coronary angioplasty implant and graft
CPT/HCPCS: 71045; 80048; 84484; 85025; 93005; 94640; 99284; A4216

== ENCOUNTER → 2024-01-17 | Outpatient (CLI) | payer MEDICARE, MEDICAID, SELFPAY ==
[2024-01-17 08:38] LABS: Absolute Lymphocyte Count 2.42 X10^3/uL (0.83-4.51); Absolute Neutrophil Count 9.2 X10^3/uL (2.0-7.7); Basophil# 0.04 X10^3/uL; Basophil% 0.3 % (0-1); Eosinophil# 0.26 X10^3/uL; Hematocrit 44.4 % (37-47); Hemoglobin 14.1 g/dL (12.0-15.0); Lymphocyte # 2.42 X10^3/ul (0.83-4.51); Lymphocyte % 18.9 % (19-41); Mean Corp Hgb Conc 31.8 g/dL (32-36); Mean Corpuscular Hgb 29.4 pg (27.0-32.0); Mean Corpuscular Volume 92.5 fL (81-99); Mean Platelet Vol. 10.8 fl (6.2-12.0); Monocyte# 0.86 X10^3/uL; Monocyte% 6.7 % (0-10); NRBC Flagged by Analyzer 0 % (0-5); Neutrophil # 9.16 X10^3/uL (2.7-7.7); Neutrophil % 71.5 % (47-70); Platelet Count 305 K/mm3 (150-450); RBC Distribution Width CV 13.1 % (11.6-14.6); RBC Distribution Width SD 44.4 fl (35.1-43.9); White Blood Count 12.8 K/mm3 (4.4-11.0)
[2024-01-17 08:59] LABS: Hemoglobin A1c 10.8 % (3.8-5.6)
[2024-01-17 09:01] LABS: Vitamin D,25 Hydroxy 10.2 ng/mL
[2024-01-17 09:26] LABS: ALB/GLOB Ratio 0.8 RATIO (0.9-2.4); AST(SGOT) 12 U/L (15-37); Alanine Aminotransfer ALT/SGPT 20 U/L (13-56); Albumin, Serum 3.3 g/dL (3.2-5.0); Alkaline Phosphatase 110 U/L (45-117); Anion Gap 8 (5-15); BUN 18 mg/dL (7-18); BUN/Creat Ratio 20.4 RATIO (10-20); Calcium,Total 9.1 mg/dL (8.5-10.1); Chloride 102 mmol/L (98-107); Cholesterol 143 mg/dL (200); Creatinine, Serum 0.88 mg/dL (0.55-1.02); EST Glomerular Filtration Rate 67 mL/min (>60); Est Glom Filt Rate - Afr Amer 81 mL/min (>60); Free T3 2.4 pg/mL (2.18-3.98); Glucose 277 mg/dL (74-106); High Density Lipoprotein 54 mg/dL; Magnesium 2.1 mg/dL (1.6-2.6); Potassium 4.4 mmol/L (3.5-5.1); Protein, Total 7.3 g/dL (6.4-8.2); Sodium Level 136 mmol/L (136-145); T4 Free Direct 1.16 ng/dL (0.76-1.46); Triglycerides 182 mg/dL; Very Low Density Lipoprotein 36 mg/dL (5-40)
== END | disposition home or self-care (01) ==
LOC: LAB 07:58
PROVIDERS: PCP Internal Medicine; Referring Provider Internal Medicine; Visit Provider Internal Medicine
DX: E03.9 Hypothyroidism, unspecified (principal); E11.9 Type 2 diabetes mellitus without complications; R53.83 Other fatigue; I25.10 Atherosclerotic heart disease of native coronary artery without angina pectoris; I10 Essential (primary) hypertension; E78.5 Hyperlipidemia, unspecified; E55.9 Vitamin D deficiency, unspecified; Z13.220 Encounter for screening for lipoid disorders
CPT/HCPCS: 36415; 80053; 80061; 82306; 83036; 83735; 84439; 84443; 84481; 85025

== ENCOUNTER 2024-04-29 14:41 | Observation (INO) | payer MEDICARE, MEDICAID, SELFPAY ==
[2024-04-29] VITALS (13 sets, daily range): BP systolic 148–203; BP diastolic 65–108; PULSE 66–83; RESP 14–26; TEMP 36.3–37.2; O2SAT 92–97; BMI 42.3; BMI 40.6
--- NOTE | 2024-04-29 15:27 | ED.VIS.DYS ---
HPI History of Present Illness Chief Complaint: Shortness of Breath [facility] Medical History History of left heart catheterization (LHC) (~09/05/21) Abnormal nuclear stress test Dyspnea on exertion Mass of lip Elevated WBC count History of DVT (deep vein thrombosis) Presence of stent in coronary artery (~04/10/16) History of non-ST elevation myocardial infarction (NSTEMI) Cardiogenic shock Type 2 diabetes mellitus Atherosclerotic heart disease of [place] coronary artery without angina pectoris Essential hypertension Carpal tunnel syndrome Hyperlipemia Hypertension Hypothyroidism History of pneumonia IBS (irritable bowel syndrome) Diabetes Home Medications ?Medication ?Instructions ?Recorded ?Last Taken ?Type levothyroxine 112 mcg tablet 112 mcg PO DAILY #90 tabs 01/16/24 Unknown Rx ticagrelor 60 mg tablet (Brilinta) 60 mg PO BID 01/16/24 Unknown History blood-glucose sensor (Dexcom G7 #1 ea 01/20/24 Unknown Rx Sensor device) carvedilol 25 mg tablet 25 mg PO BID #60 tabs 04/15/24 Unknown Rx insulin lispro protamine-lispro See Rx Instructions subcut BID #15 04/16/24 Unknown Rx 100 unit/mL (75-25) subcutaneous mL pen Allergy/AdvReac Type Severity Reaction Status Date / Time alogliptin Allergy Hives Verified 04/29/24 14:46 dulaglutide (From Trulicity) Allergy Hives Verified 04/29/24 14:46 glipizide Allergy Hives Verified 04/29/24 14:46 metformin Allergy Hives Verified 04/29/24 14:46 Penicillins (PCN) Allergy Hives Verified 04/29/24 14:46 aspirin AdvReac Severe blood Verified 04/29/24 14:46 clots canagliflozin (From Invokana) AdvReac Severe abdominal Verified 04/29/24 14:46 pain Family History Sister Breast cancer Mother Hypertension Heart disease Myocardial infarction, Onset Age: 61 Thyroid disorder Grandmother Arthritis Seizures Father CVA (cerebral vascular accident) Brother Heart disease Myocardial infarction Sister CAD (coronary artery disease) Surgical History Hx of heart bypass surgery History of coronary artery bypass surgery (~11/23/21) History of excision of mass (~07/2020) Presence of coronary angioplasty implant and graft (~04/10/16) History of tubal ligation History of hysterectomy History of tonsillectomy Social History household members: none Smoking Status: Former smoker how long ago did patient quit smokin12/2015 alcohol intake: never substance use type: does not use caffeine: Yes Type: coffee Number of servings: 1 frequency: 1-2 times per week EXAM Physical Exam Const Vital Signs: 04/29/24 14:42 04/29/24 15:13 04/29/24 16:00 Temperature 99 F 99 F 98.7 F Temperature Source Oral Oral Oral Pulse Rate 71 66 75 Respiratory Rate 17 16 26 H Respiratory Effort Respiratory Depth Respiratory Pattern Blood Pressure 200/98 H 200/98 H 175/72 H Blood Pressure Mean 132 132 106 Pulse Ox 96 96 95 Oxygen Delivery Method Room Air Room Air Room Air 04/29/24 16:11 04/29/24 16:14 04/29/24 17:00 Temperature 97.8 F Temperature Source Oral Pulse Rate 71 Respiratory Rate 20 H Respiratory Effort Normal Non-Labored Respiratory Depth Normal Respiratory Pattern Tachypnea Blood Pressure 178/84 H Blood Pressure Mean 115 Pulse Ox 96 Oxygen Delivery Method Room Air Room Air 04/29/24 18:10 04/29/24 18:40 04/29/24 19:00 Temperature 97.4 F L 97.7 F L Temperature Source Oral Oral Pulse Rate 73 78 71 Respiratory Rate 14 16 16 Respiratory Effort Respiratory Depth Respiratory Pattern Blood Pressure 194/88 H 180/74 H 189/108 H Blood Pressure Mean 123 109 135 Pulse Ox 95 97 97 Oxygen Delivery Method Room Air 04/29/24 19:33 04/29/24 20:13 Temperature 98 F Temperature Source Pulse Rate 74 72 Respiratory Rate 15 16 Respiratory Effort Respiratory Depth Respiratory Pattern Blood Pressure 203/65 H 171/70 H Blood Pressure Mean 111 103 Pulse Ox 93 92 Oxygen Delivery Method Room Air MDM MDM MDM Narrative Medical decision making narrative: HISTORY OF PRESENT ILLNESS: 73 F type 2 diabetes, hypertension, CAD status post bypass, status post stent, hyperlipidemia, IBS here with shortness of breath. Notes began suddenly when walking. Also complains of chest pain. The patient further states patient history of heart attack, blood clot. Not on blood thinners. Notes she started taking Brilinta and carvedilol today. Notes approximately 4 to 5 hours of sternal chest pressure is worse with exertion as well as dyspnea on exertion. Denies lower extremity edema. Denies unilateral leg swelling, estrogen use, recent trauma, surgery, chemotherapy, estrogen use or other VTE risk factors. Denies bleeding diathesis. Denies recent cough or fever but does endorse chills. Denies any vomiting or diarrhea. REVIEW OF SYSTEMS: Pertinent positives: Chest pain, shortness of breath Pertinent negatives: As per HPI PHYSICAL EXAM: Nursing triage notes reviewed, Vital signs reviewed Constitutional: please see mdm HENT: MMM Eyes: Pupils equal round and reactive to light, Extraocular muscles intact Neck: No stridor, no JVD, full neck ROM Lungs: Clear to auscultation, No wheezing or rales. No increased work of breathing, no conversational dyspnea, no accessory muscle use, no nasal flaring. No respiratory distress noted Heart: Regular rate and rhythm, No murmurs, No rubs and No gallops, 2+ distal pulses (radial, femoral, posterior tibial) in all extremities Abdomen: Soft, there is no tenderness, rigidity, rebound or guarding, no obvious peritoneal signs, no palpable pulsatile abdominal masses, no auscultated abdominal bruit : No CVAT Extremities: No edema Neuro: No new focal neurological deficits, cranial nerves II through XII intact, 5/5 strength in all present extremities. Intact sensation to light touch in all present extremities, 2+ reflexes bilateral patella tendons. Skin: No rash or lesions noted MEDICAL DECISION MAKING: Chief Complaint: Chest pain, shortness of breath External records reviewed: Reviewed prior cardiovascular testing. Reviewed echocardiogram from 2021 which shows an ejection fraction of 65% Factors affecting care: As per HPI Social determinants of health: none History obtained from others: none Consults: Internal medicine (Dr. Hinds) [facility] Narrative: The patient was initially hypertensive with a blood pressure of 200/98, otherwise afebrile and nontoxic-appearing. Saturating 96% on room air. Exam without focal cardiopulmonary normalities I considered the following differential diagnosis: ACS, arrhythmia, anemia, electrolyte disturbance, pneumonia, COVID, RSV, flu, PE, aortic dissection ALL IMAGES (IF OBTAINED) HAVE BEEN PERSONALLY REVIEWED AND INTERPRETED BY MYSELF. EKG with normal sinus rhythm, rate of 66, left axis deviation, prolonged QT interval 48, right bundle branch block, no obvious STEMI. No significant changes when compared to prior EKG from December 2023 chest x-ray was read and personally reviewed by myself shows cardiomegaly but no significant sign of pulmonary edema CBC with leukocytosis suggestive of systemic information, no anemia or thrombocytopenia noted D-dimer negative making VTE less likely BMP without evidence of significant electrolyte abnormalities, no anion gap, no acute kidney injury. High-sensitivity troponin is negative, no evidence of myocardial ischemia x 2 BNP elevated consistent with volume overload increased ventricular stretch Urinalysis shows no evidence of urinary inflammation suggestive of UTI On reassessment patient's blood pressure continued to be elevated at 200/65 prompting IV blood pressure lowering medication. Given poorly controlled blood pressure, concerning story with chest pain is exertional I described as pressure-like in the setting of CAD status post CABG and stents patient had an elevated heart score and despite her negative high-sensitivity troponins I thought she was high risk. Given high risk I opted to admit the patient for further monitoring, cardiology consultation, possible confirmatory testing and blood pressure control patient received initial dose of 10 mg of IV labetalol without improvement in blood pressure. She then received a second dose of 10 mg IV labetalol. After second dose of labetalol patient blood pressure improved to 171/70. She is appropriate for PCU admission. The patient and/or family, caregivers express understanding. The patient and/or family, caregivers agrees with the plan. Shared decision making: I will have a discussion with the patient and or visitors regarding risk/benefits of further testing or admission. They will be made aware of of the risk/benefits inherent in this decision they will be given the opportunity to voice understanding. Total critical care time today provided was at least 0 minutes. This excludes separately billable procedures. Critical care time (if documented) is secondary to the patient having high probability of clinically significant/life threatening deterioration in the patient's condition which required my urgent intervention. Impression: 1. Chest pain 2. Dyspnea 3. Hypertensive urgency 4. History of CAD 5. History of CHF Dispo: Admit to PCU This note was generated with Tipzuation software. It may contain incorrect words, spelling, and punctuation that were not noted in review of the chart prior to signing. Lab Data Labs: Laboratory Results - last 24 hr 04/29/24 04/29/24 04/29/24 15:25 17:20 18:23 WBC 14.8 H RBC 5.33 Hgb 15.2 H Hct 47.7 H MCV 89.5 MCH 28.5 MCHC 31.9 L RDW Std Deviation 43.5 RDW Coeff of Eveline 13.2 Plt Count 291 MPV 10.7 Immature Gran % (Auto) 0.600 Neut % (Auto) 79.6 H Lymph % (Auto) 12.1 L [place] % (Auto) 4.9 Eos % (Auto) 2.3 Baso % (Auto) 0.5 Absolute Neuts (auto) 11.7 H Absolute Lymphs (auto) 1.79 Nucleated RBC % 0 D-Dimer Quant (PE/DVT) < 0.27 L Sodium 136 Potassium 3.8 Chloride 101 Carbon Dioxide 26.0 Anion Gap 9 BUN 15 Creatinine 0.82 Estim Creat Clear Calc 70.51 Est GFR (MDRD) Af Amer 88 Est GFR (MDRD) Non-Af 73 BUN/Creatinine Ratio 18.2 Glucose 148 H Calcium 9.6 Troponin I High Sens 12 14 B-Natriuretic Peptide 161.4 H Urine Color Straw Urine Clarity Clear Urine pH 8.0 Ur Specific [place] 1.010 Urine Protein Negative Urine Glucose (UA) Normal Urine Ketones Negative Urine Occult Blood 10 H Urine Nitrite Negative Urine Bilirubin Negative Urine Urobilinogen Normal Ur Leukocyte Esterase 25 H Urine RBC 0-5 SEEN Urine WBC 0-5 SEEN Ur Squamous Epith Cells 0-5 SEEN Urine Bacteria 0 SEEN Urine Mucus 0 SEEN Radiography Diagnostic Testing: Clinical Impression(s) from Imaging Studies Chest X-Ray 04/29/24 16:08 IMPRESSION: Stable mild cardiomegaly. Otherwise unremarkable chest radiograph. Reading Location: [id number] Discharge Plan Disposition Disposition: Acute Care Hospital [facility] Discharge Date/Time: 04/29/24 21:00
--- NOTE | 2024-04-29 15:42 | EKG12_ITS ---
Test Reason : sob Blood Pressure : */* mmHG Vent. Rate : 66 BPM Atrial Rate : 66 BPM P-R Int : 166 ms QRS Dur : 132 ms QT Int : 466 ms P-R-T Axes : 44 -2 43 degrees QTcB Int : 488 ms Normal sinus rhythm Right bundle branch block Abnormal ECG Confirmed by KINGA MCARTHUR, ADELA ([id number]), film and video editor ALLA LAINEZ ([id number]) on 05/01/2024 1:00:07 PM Referred By: Sly Blanco Confirmed By: ADELA DONATO MD
[2024-04-29 15:57] LABS: Absolute Lymphocyte Count 1.79 X10^3/uL (0.83-4.51); Absolute Neutrophil Count 11.7 X10^3/uL (2.0-7.7); Basophil# 0.08 X10^3/uL; Basophil% 0.5 % (0-1); Eosinophil# 0.34 X10^3/uL; Eosinophils% 2.3 % (0-5); Hematocrit 47.7 % (37-47); Hemoglobin 15.2 g/dL (12.0-15.0); Lymphocyte # 1.79 X10^3/ul (0.83-4.51); Lymphocyte % 12.1 % (19-41); Mean Corp Hgb Conc 31.9 g/dL (32-36); Mean Corpuscular Hgb 28.5 pg (27.0-32.0); Mean Corpuscular Volume 89.5 fL (81-99); Mean Platelet Vol. 10.7 fl (6.2-12.0); Monocyte# 0.73 X10^3/uL; Monocyte% 4.9 % (0-10); NRBC Flagged by Analyzer 0 % (0-5); Neutrophil # 11.72 X10^3/uL (2.7-7.7); Neutrophil % 79.6 % (47-70); Platelet Count 291 K/mm3 (150-450); RBC Distribution Width CV 13.2 % (11.6-14.6); RBC Distribution Width SD 43.5 fl (35.1-43.9); Red Blood Count 5.33 M/mm3 (4.2-5.4); White Blood Count 14.8 K/mm3 (4.4-11.0)
--- NOTE | 2024-04-29 16:08 | RAD_ITS ---
PROCEDURE: CHEST 1 VIEW (PORTABLE) REASON FOR EXAM: 73-year-old female, chest pain and shortness of breath. TECHNIQUE: Frontal view of the chest. COMPARISON: Yesterday FINDINGS: Prior median sternotomy and CABG. Stable mild cardiomegaly. The lungs are clear. No focal consolidation, pleural effusion or pneumothorax. Thoracic aortic calcifications. RAD/Chest 1 View (Portable) IMPRESSION: Stable mild cardiomegaly. Otherwise unremarkable chest radiograph. Reading Location: [id number]
[2024-04-29 16:17] LABS: D-Dimer Quantitative (DVT/PE) < 0.27 FEU/ug/m (0.27-0.49)
[2024-04-29 16:22] LABS: Anion Gap 9 (5-15); BUN 15 mg/dL (7-18); BUN/Creat Ratio 18.2 RATIO (10-20); Calcium,Total 9.6 mg/dL (8.5-10.1); Chloride 101 mmol/L (98-107); Creatinine, Serum 0.82 mg/dL (0.55-1.02); EST Glomerular Filtration Rate 73 mL/min (>60); Est Glom Filt Rate - Afr Amer 88 mL/min (>60); Estimated Creatinine Clearance 70.51 ml/min; Glucose 148 mg/dL (74-106); Potassium 3.8 mmol/L (3.5-5.1); Sodium Level 136 mmol/L (136-145); Troponin-I HS (w/2H Reflex) 12 pg/mL (3.0-54.0)
[2024-04-29 16:23] LABS: BNP,B-Type NATRIURETIC PEPTIDE 161.4 pg/mL (0-100)
[2024-04-29 17:52] LABS: Reflex Troponin-HS? (from REC) Y
[2024-04-29 17:54] LABS: Bacteria 0 SEEN /hpf (None Seen); Mucous, Urine 0 SEEN /hpf (<or=2+)
[2024-04-29 18:04] LABS: Color, Urine Straw (Yellow); Glucose, Dipstick Normal (Normal); Ketone-Dipstick Negative (Negative); Leukocyte Esterase-Dipstick 25 /ul (Negative); Nitrite-Dipstick Negative (Negative); Occult Blood-Urine 10 /ul (Negative); Protein-Dipstick Negative (Negative); Urine Bilirubin Dipstick Negative (Negative); Urine Clarity Clear (Clear); Urine Urobilinogen Normal (Normal)
[2024-04-29 18:16] LABS: Red Blood Cells-Urine 0-5 SEEN /hpf (0-5); White Blood Cells 0-5 SEEN /hpf (0-5)
[2024-04-29 18:17] LABS: Squamous Epithelial Cells - UA 0-5 SEEN /hpf (5-10)
[2024-04-29 18:52] LABS: Troponin-I HS 14 pg/mL (3.0-54.0)
--- NOTE | 2024-04-29 19:36 | PCM.HP.STD ---
[facility] - General General Date of Admission: 04/29/24 Date of Service: 04/29/24 Chief Complaint: Chest Pain, SOB and Elevated Hypertension. HPI Narrative FELICITAS ALCANTARA, is a 73 F with a past medical history of essential hypertension; on carvedilol, hypothyroidism; on levothyroxine, morbid obesity; with BMI of 42.3 this admission, former tobacco abuse (quit 2015), DM-2; of unknown control on insulin protamine-lispro, CAD; s/p NSTEMI with subsequent stents LAD (2015) RCA (2016) on ticagrelor, history of cardiogenic shock, history of CABG x 2 (2021), remote history of DVT during ; with listed allergy to ASA (blood clots), history of pneumonia, IBS, history of lip mass; s/p excision (2020), remote history of tubal ligation (1973), remote history of hysterectomy (1976), listed allergy to PCN (hives), CTS and OA who presents to [facility] ER complaining of chest pain, SOB and elevated hypertension. Ms. Alcantara reports her symptoms began approximately 4-5 hours prior to admission with chest pain that began at rest and was substernal, pressure-like, severe, ~7/10 and was made worse with exertion. She admits her symptoms are similar to the angina that heralded her previous stents. She states she has evelyn taking her ticagrelor and carvedilol as prescribed with a significantly elevated blood pressure of 200/98 mmHg noted upon arrival. She admits to chills but she denies associated fever, abdominal pain, nausea, vomiting, diarrhea, constipation, lower extremity edema, recent trauma, chemotherapy, HRT or significant travel. In the ER patient was noted to have two normal range troponins, and negative d-dimer and mildly elevated BNP of 161.4 pg/mL present on admission suggestive of mild volume overload with a corresponding CXR that revealed stable mild cardiomegaly with otherwise unremarkable chest radiograph with Leukocytosis of 14.6K present on admission suspected to be due to Acute Phase Reactant with no overt signs of acute infection due to suspected AE Asthmatic Bronchitis. She was then diagnosed with suspected Hypertensive Urgency and treated with IV Labetalol x 1 in addition to SL NTG x 1 with her blood pressure briefly dipping to a low of 175/72 mmHg before rising back to 203/65 mmHg. She was then admitted to the PCU under observation status for ongoing care for a stay that is expected to be less than 2 midnights. [facility] Medical History History of left heart catheterization (LHC) (~09/05/21) Abnormal nuclear stress test Dyspnea on exertion Mass of lip Elevated WBC count History of DVT (deep vein thrombosis) Presence of stent in coronary artery (~04/10/16) History of non-ST elevation myocardial infarction (NSTEMI) Cardiogenic shock Type 2 diabetes mellitus Atherosclerotic heart disease of [place] coronary artery without angina pectoris Essential hypertension Carpal tunnel syndrome Hyperlipemia Hypertension Hypothyroidism History of pneumonia IBS (irritable bowel syndrome) Diabetes Home Medications ?Medication ?Instructions ?Recorded ?Last Taken ?Type levothyroxine 112 mcg tablet 112 mcg PO DAILY #90 tabs 01/16/24 Unknown Rx ticagrelor 60 mg tablet (Brilinta) 60 mg PO BID 01/16/24 Unknown History blood-glucose sensor (Dexcom G7 #1 ea 01/20/24 Unknown Rx Sensor device) carvedilol 25 mg tablet 25 mg PO BID #60 tabs 04/15/24 Unknown Rx insulin lispro protamine-lispro See Rx Instructions subcut BID #15 04/16/24 Unknown Rx 100 unit/mL (75-25) subcutaneous mL pen Allergy/AdvReac Type Severity Reaction Status Date / Time alogliptin Allergy Hives Verified 04/29/24 14:46 dulaglutide (From Trulicity) Allergy Hives Verified 04/29/24 14:46 glipizide Allergy Hives Verified 04/29/24 14:46 metformin Allergy Hives Verified 04/29/24 14:46 Penicillins (PCN) Allergy Hives Verified 04/29/24 14:46 aspirin AdvReac Severe blood Verified 04/29/24 14:46 clots canagliflozin (From Invokana) AdvReac Severe abdominal Verified 04/29/24 14:46 pain Family History Sister Breast cancer Mother Hypertension Heart disease Myocardial infarction, Onset Age: 61 Thyroid disorder Grandmother Arthritis Seizures Father CVA (cerebral vascular accident) Brother Heart disease Myocardial infarction Sister CAD (coronary artery disease) Surgical History Hx of heart bypass surgery History of coronary artery bypass surgery (~11/23/21) History of excision of mass (~07/2020) Presence of coronary angioplasty implant and graft (~04/10/16) History of tubal ligation History of hysterectomy History of tonsillectomy Social History household members: none Smoking Status: Former smoker how long ago did patient quit smokin12/2015 alcohol intake: never substance use type: does not use caffeine: Yes Type: coffee Number of servings: 1 frequency: 1-2 times per week ROS ROS Narrative Review of Systems: Constitutional: Patient admits to chills but she denies fever. Eyes: Patient denies changes in vision or discharge from eyes. ENT: Patient denies runny nose, sore throat or ear pain. Resp: Patient admits to CORONA but she denies cough. CV: Patient admits to non-radiating substernal chest pain that began at rest and was worse with exertion as per HPI. GI: Patient denies abdominal pain, nausea, vomiting, diarrhea or constipation. : Patient denies dysuria, hematuria or urinary frequency. MSK: Patient denies arthralgias or myalgias. Skin: Patient denies rash, abscess, wounds or jaundice. Psych: Patient denies symptoms of uncontrolled depression or anxiety. Allergy: Patient denies lip swelling, tongue swelling or urticaria. Hematology: Patient denies easy bleeding or easy bruisability. Endocrinology: Patient denies polyuria, polydipsia or polyphagia. 14 point ROS otherwise negative except for positives noted above in HPI. Vital Signs Vital Signs Vital Signs: 04/29/24 14:42 04/29/24 15:13 04/29/24 16:00 Temperature 99 F 99 F 98.7 F Temperature Source Oral Oral Oral Pulse Rate 71 66 75 Respiratory Rate 17 16 26 H Respiratory Effort Respiratory Depth Respiratory Pattern Blood Pressure 200/98 H 200/98 H 175/72 H Blood Pressure Mean 132 132 106 Pulse Ox 96 96 95 Oxygen Delivery Method Room Air Room Air Room Air 04/29/24 16:11 04/29/24 16:14 04/29/24 17:00 Temperature 97.8 F Temperature Source Oral Pulse Rate 71 Respiratory Rate 20 H Respiratory Effort Normal Non-Labored Respiratory Depth Normal Respiratory Pattern Tachypnea Blood Pressure 178/84 H Blood Pressure Mean 115 Pulse Ox 96 Oxygen Delivery Method Room Air Room Air 04/29/24 18:10 04/29/24 18:40 04/29/24 19:00 Temperature 97.4 F L 97.7 F L Temperature Source Oral Oral Pulse Rate 73 78 71 Respiratory Rate 14 16 16 Respiratory Effort Respiratory Depth Respiratory Pattern Blood Pressure 194/88 H 180/74 H 189/108 H Blood Pressure Mean 123 109 135 Pulse Ox 95 97 97 Oxygen Delivery Method Room Air 04/29/24 19:33 Temperature Temperature Source Pulse Rate 74 Respiratory Rate 15 Respiratory Effort Respiratory Depth Respiratory Pattern Blood Pressure 203/65 H Blood Pressure Mean 111 Pulse Ox 93 Oxygen Delivery Method Room Air Weight Weight: 231 lb 4.238 oz Body Mass Index (BMI) 42.3 Physical Exam Const alert, oriented x3 and no apparent distress Constitutional Narrative: Morbidly obese. General Appearance: cooperative HEENT normocephalic, head/scalp atraumatic, hearing grossly normal bilaterally and moist oral mucous membranes Eyes PERRL and EOMs intact bilaterally Neck no lymphadenopathy, supple and no JVD Resp Resp Narrative: Diminished breath sounds throughout with scattered wheezes. Auscultation: wheezes Cardio regular rate and regular rhythm GI normal to inspection, nondistended, normoactive bowel sounds, soft to palpation, non-tender and non-distended GI Narrative: Morbidly obese. Extremity normal to inspection, full ROM and no clubbing, cyanosis or edema Skin Skin Narrative: Patient has no evidence of rash, abscess, wounds or jaundice. Neuro oriented x3, CN's II-XII intact bilaterally, moves all extremities and no focal motor deficits Sensorium / Orientation: awake, alert, oriented to person, oriented to place and oriented to time Speech: speech normal Psych affect normal Results Medical Records Data Attestation: I reviewed the patient's medical records Lab / Micro Data Attestation: I reviewed the patient's lab results. 04/30/24 06:40 04/29/24 15:25 Labs: Laboratory Results - last 24 hr 04/29/24 15:25: WBC 14.8 H, RBC 5.33, Hgb 15.2 H, Hct 47.7 H, MCV 89.5, MCH 28.5, MCHC 31.9 L, RDW Std Deviation 43.5, RDW Coeff of Eveline 13.2, Plt Count 291, MPV 10.7, Immature Gran % (Auto) 0.600, Neut % (Auto) 79.6 H, Lymph % (Auto) 12.1 L, [place] % (Auto) 4.9, Eos % (Auto) 2.3, Baso % (Auto) 0.5, Absolute Neuts (auto) 11.7 H, Absolute Lymphs (auto) 1.79, Nucleated RBC % 0, D-Dimer Quant (PE/DVT) < 0.27 L, Sodium 136, Potassium 3.8, Chloride 101, Carbon Dioxide 26.0, Anion Gap 9, BUN 15, Creatinine 0.82, Estim Creat Clear Calc 70.51, Est GFR (MDRD) Af Amer 88, Est GFR (MDRD) Non-Af 73, BUN/Creatinine Ratio 18.2, Glucose 148 H, Calcium 9.6, Troponin I High Sens 12, B-Natriuretic Peptide 161.4 H 04/29/24 17:20: Urine Color Straw, Urine Clarity Clear, Urine pH 8.0, Ur Specific [place] 1.010, Urine Protein Negative, Urine Glucose (UA) Normal, Urine Ketones Negative, Urine Occult Blood 10 H, Urine Nitrite Negative, Urine Bilirubin Negative, Urine Urobilinogen Normal, Ur Leukocyte Esterase 25 H, Urine RBC 0-5 SEEN, Urine WBC 0-5 SEEN, Ur Squamous Epith Cells 0-5 SEEN, Urine Bacteria 0 SEEN, Urine Mucus 0 SEEN 04/29/24 18:23: Troponin I High Sens 14 Micro: Microbiology 04/29/24 17:25 Mucosa - Nose SARS-CoV-2, Influenza & RSV (PCR) - Final EKG Initial EKG: Attestation: I personally reviewed and interpreted this EKG as follows: (EKG with normal sinus rhythm, rate of 66, left axis deviation, prolonged QT interval 48, right bundle branch block, no obvious STEMI. ) Prior EKG tracings: available for review (No significant changes when compared to prior EKG from December 2023.) Imaging Radiology Impression Chest X-Ray 04/29/24 16:08 IMPRESSION: Stable mild cardiomegaly. Otherwise unremarkable chest radiograph. Reading Location: [facility] Assessment & Plan Assessment/Plan (1) Hypertensive urgency: (2) Chest pain: QUALIFIERS: Chest pain type: unspecified Qualified Code(s): R07.9 - Chest pain, unspecified (3) Asthmatic bronchitis: QUALIFIERS: Asthma severity: mild Asthma persistence: intermittent Asthma complication type: with acute exacerbation Qualified Code(s): J45.21 - Mild intermittent asthma with (acute) exacerbation (4) CORONA (dyspnea on exertion): (5) History of coronary artery bypass surgery: (6) History of left heart catheterization (LHC): (7) Presence of stent in coronary artery: (8) History of non-ST elevation myocardial infarction (NSTEMI): (9) Leukocytosis: QUALIFIERS: Leukocytosis type: unspecified Qualified Code(s): D72.829 - Elevated white blood cell count, unspecified (10) Morbid obesity with BMI of 40.0-44.9, adult: PLAN: Plan 1. Hypertensive Urgency; with previously good blood pressure control on carvedilol - Admit to PCU under observation status. Continue carvedilol as previous plus add furosemide 40 mg IV once. We will also give hydralazine IV prn for systolic blood pressure > 160 mmHg. 2. Chest Pain with CORONA in the setting of known CAD; s/p NSTEMI with subsequent stents LAD (2015) RCA (2016) on ticagrelor, history of cardiogenic shock, history of CABG x 2 (2021) complicating #1 - Serialize troponin. Check echocardiogram to evaluate LVEF with last echo done here in 2021 that revealed LVEF ~65% with intermediate diastolic dysfunction and akinetic apex. Give acetaminophen prn for [id number] (level 1-5/10) pain or fever. Give morphine IV prn for severe (level 6-10/10) pain. Finally, we will check Lexiscan chemical NST in AM to evaluate for suspected underlying ischemia. 3. Leukocytosis of 14.6K present on admission suspected to be due to Acute Phase Reactant with no overt signs of acute infection but with suspected AE Asthmatic Beonchitis compounding #1 & #2 - Start Solu-Medrol plus give scheduled and prn nebulizers and monitor for improvement. Give doxycycline 100 mg IV BID plus prn Mucinex. We will monitor closely and serialize CBC daily to follow trend. 4. Morbid obesity; with BMI of 42.3 this admission adding to the burden of disease outlined from #1 - #3 - Weight loss will be recommended. This complicates her case and may hamper recovery. 5. Hypothyroidism; on levothyroxine - Continue levothyroxine as previous and check TSH. 6. Former tobacco abuse (quit 2015) - Noted. 7. DM-2; of unknown control on insulin protamine-lispro - ADA diet. FSBS q. AC/HS plus SSI. Check HgbA1c to objectively assess quality of diabetic control. 8. Remote history of DVT during ; with listed allergy to ASA (blood clots) - Noted with D-dimer <0.27 this admission mitigating against VTE. 9. History of pneumonia - CXR negative for acute pathologic process this admission. 10. IBS - Stable. 11. History of lip mass; s/p excision (2020) - Noted. 12. Remote history of tubal ligation (1973) - Noted for the sake of completeness. 13. Remote history of hysterectomy (1976) - Noted. 14. Listed allergy to PCN (hives) - We will avoid this class of agents. 15. CTS - Noted. 16. OA - Give acetaminophen prn according to pain scale outlined above. 17. DVT prophylaxis - Lovenox 40 mg sq BID plus SCD's. Total time: Approximately (but not less than) 70 minutes. Charges/Coding Visit Charges OBSV E&M: [id number] Observ/hosp same date L2
--- NOTE | 2024-04-29 21:31 | CASEMGMT ---
Care Management Face to Face with patient for initial transition planning/care coordination assessment in the ED.? This account underwriter introduced self and role at [facility]. Patient alert and oriented. Patient willing to participate in assessment and is able to answer all questions appropriately.? Care providers, pharmacy, and demographics verified. Admitting Diagnosis: Chest Pain Other diagnosis history: ?LHC, DVT, type 2 diabetes , hypertension PCP: Bert Specialists: ?ARCHITECTURAL MANAGER [place], cardiology Preferred [facility]acy: [facility] Insurance: ?[place] Prescription Benefit: yes Living Will/HPOA: ?Would like to get done while admitted LNOK: Daughter Living Arrangements: Lives alone in first floor apartment, able to complete all ADLs and IADLs Transportation: drives self DME: ?Grab bar in shower, cane, walker HHC: none SNF/Rehab: none Community Resources: none Behavioral Health History: none Patient goals: Patient wishes to discharge home. ? Disposition Plan: admission to acute; RN CM/SW to follow for discharge planning needs that may arise. Bhargavi Sexton, BLOOD BANK TECHNICIAN, TRAVELING CLERK
[2024-04-29] MEDS: Furosemide 40 MG/4 ML Vial IV (21:44)
[2024-04-29] MEDS: Potassium Chloride Oral Tablet 20 MEQ 40 MEQ PO (21:44)
[2024-04-29] MEDS: Enoxaparin 40 MG/0.4 ML Syringe SC (21:45)
[2024-04-29] MEDS: hydrALAZINE 20 MG/ML Vial 10 MG IV (21:45)
[2024-04-29] MEDS: Insulin Lispro 100 UNIT/ML INSULN.PEN SC (21:59)
[2024-04-29] MEDS: Albuterol 2.5 MG/3 ML VIAL.NEB. INHALATION (22:55)
[2024-04-29 23:24] LABS: Hemoglobin A1c 9.4 % (3.8-5.6)
[2024-04-29 23:27] LABS: Allen Test Positive; Base Excess 4 mmol/L (-2 to +2); Bicarbonate 27.2 mmol/L (22-26); Blood Gas Specimen Type ART; Mode Not entered; O2 Delivery Device Room Air; PO2 60 mmHG (75-100); SITE L Radial; SO2 94 % (95-99); Total Carbon Dioxide 28 mmol/L; pCO2 32.8 mmHg (35-45); pH 7.53 (7.35-7.45)
[2024-04-29 23:29] LABS: Troponin-I HS 17 pg/mL (3.0-54.0)
--- NOTE | 2024-04-29 23:30 | EKG12_ITS ---
Test Reason : AM EKG Blood Pressure : */* mmHG Vent. Rate : 93 BPM Atrial Rate : 93 BPM P-R Int : 158 ms QRS Dur : 130 ms QT Int : 432 ms P-R-T Axes : 59 -24 62 degrees QTcB Int : 537 ms Normal sinus rhythm Right bundle branch block Abnormal ECG Confirmed by KINGA MCARTHUR, ADELA ([id number]), medical transcription editor ALLA LAINEZ ([id number]) on 05/01/2024 1:04:01 PM Referred By: Sly Blanco Confirmed By: ADELA DONATO MD
[2024-04-29 23:34] LABS: Cholesterol 197 mg/dL (200); High Density Lipoprotein 64 mg/dL; Triglycerides 155 mg/dL; Very Low Density Lipoprotein 31 mg/dL (5-40)
[2024-04-30 00:27] LABS: Bedside Glucose 245 mg/dL (74-106)
[2024-04-30] MEDS: MethylPREDNISolone 125 MG/2 ML Vial IV (00:58)
[2024-04-30 01:02] VITALS: BP 132/63
[2024-04-30 01:16] VITALS: BMI 40.6
[2024-04-30] MEDS: Sodium Chloride 0.65% 1 SPRAY SPRAY.BTL NASAL (02:47)
[2024-04-30 03:00] VITALS: BP 140/86; PULSE 90; RESP 18; TEMP 36.8; O2SAT 94
--- NOTE | 2024-04-30 05:55 | EKG12_ITS ---
Test Reason : CP ADMISSION Blood Pressure : */* mmHG Vent. Rate : 86 BPM Atrial Rate : 86 BPM P-R Int : 156 ms QRS Dur : 130 ms QT Int : 440 ms P-R-T Axes : 50 -21 49 degrees QTcB Int : 526 ms Normal sinus rhythm Right bundle branch block Abnormal ECG When compared with ECG of 29-Apr-2024 15:56, MANUAL COMPARISON REQUIRED DATA IS UNCONFIRMED Confirmed by KINGA MCARTHUR, ADELA ([id number]), brands editor ALLA LAINEZ ([id number]) on 05/01/2024 1:04:57 PM Referred By: Sly Blanco Confirmed By: ADELA DONTAO MD
[2024-04-30] MEDS: Insulin Lispro 100 UNIT/ML INSULN.PEN SC ×3 (06:07→16:11)
[2024-04-30] MEDS: Levothyroxine 112 MCG Tablet PO (06:07)
[2024-04-30 06:52] LABS: Bedside Glucose 365 mg/dL (74-106)
[2024-04-30 07:00] LABS: Absolute Lymphocyte Count 1.26 X10^3/uL (0.83-4.51); Absolute Neutrophil Count 16.1 X10^3/uL (2.0-7.7); Basophil% 0.6 % (0-1); Hematocrit 49.8 % (37-47); Hemoglobin 16.3 g/dL (12.0-15.0); Lymphocyte # 1.26 X10^3/ul (0.83-4.51); Lymphocyte % 7.1 % (19-41); Mean Corp Hgb Conc 32.7 g/dL (32-36); Mean Corpuscular Hgb 29.1 pg (27.0-32.0); Mean Corpuscular Volume 88.9 fL (81-99); Mean Platelet Vol. 10.6 fl (6.2-12.0); Monocyte# 0.08 X10^3/uL; Monocyte% 0.5 % (0-10); NRBC Flagged by Analyzer 0 % (0-5); Neutrophil # 16.08 X10^3/uL (2.7-7.7); Neutrophil % 90.6 % (47-70); Platelet Count 328 K/mm3 (150-450); RBC Distribution Width CV 13.3 % (11.6-14.6); RBC Distribution Width SD 43.2 fl (35.1-43.9); White Blood Count 17.7 K/mm3 (4.4-11.0)
[2024-04-30 08:05] LABS: ALB/GLOB Ratio 0.8 RATIO (0.9-2.4); AST(SGOT) 15 U/L (15-37); Alanine Aminotransfer ALT/SGPT 19 U/L (13-56); Albumin, Serum 3.8 g/dL (3.2-5.0); Alkaline Phosphatase 116 U/L (45-117); Anion Gap 13 (5-15); BUN 19 mg/dL (7-18); BUN/Creat Ratio 17.6 RATIO (10-20); Calcium,Total 10.4 mg/dL (8.5-10.1); Chloride 100 mmol/L (98-107); Creatinine, Serum 1.08 mg/dL (0.55-1.02); EST Glomerular Filtration Rate 53 mL/min (>60); Est Glom Filt Rate - Afr Amer 64 mL/min (>60); Estimated Creatinine Clearance 52.31 ml/min; Globulin 4.6 g/dL (2.2-4.2); Glucose 352 mg/dL (74-106); Magnesium 2.1 mg/dL (1.6-2.6); Phosphorus 3.7 mg/dL (2.5-4.9); Potassium 4.4 mmol/L (3.5-5.1); Protein, Total 8.4 g/dL (6.4-8.2); Sodium Level 137 mmol/L (136-145)
[2024-04-30] MEDS: Acetaminophen 325 MG Tablet 650 MG PO (10:15)
[2024-04-30] MEDS: Magnesium Chloride 64 MG Delay Rel.Tablet 128 MG PO (10:17)
[2024-04-30] MEDS: Carvedilol 25 MG Tablet PO ×2 (10:17→16:12)
[2024-04-30] MEDS: Enoxaparin 40 MG/0.4 ML Syringe SC (10:18)
[2024-04-30] MEDS: Insulin Human 75/25 Kwickpen 20 UNIT SC ×2 (10:18→16:12)
[2024-04-30] MEDS: Ondansetron 4 MG/2 ML Vial IV (10:29)
[2024-04-30] MEDS: Doxycycline 100 MG in 0.9% Normal Saline (250mL Bag) 250 ML 250 MG IV (10:30)
[2024-04-30] MEDS: 0.9% Saline Lock 10 ML Syringe IV (10:30)
[2024-04-30] MEDS: 0.9% Normal Saline (100mL Bag) 100 ML 15 ML IV (10:34)
[2024-04-30 10:43] LABS: Bedside Glucose 404 mg/dL (74-106)
--- NOTE | 2024-04-30 11:46 | STRESSREP_ITS ---
Stress Test Report Date: 04/30/2024 Procedure: Pharmacologic stress nuclear imaging study Indications: Chest pain Consent: Per the patient Procedure: The patient underwent pharmacologic (Regadenoson) evaluation with a peak heart rate of 109 beats per minute (73%predicted maximal heart rate) and a peak blood pressure of 152/84 mmHg. The baseline ECG demonstrated normal sinus rhythm, right bundle branch block. EKG during lexiscan infusion revealed no significant ischemic changes. EKG post infusion revealed no significant ischemic changes [There were no cardiac dysrhythmias pretest, during pharmacologic infusion, or recovery]. Patient had minimal chest discomfort with Lexiscan infusion which is likely a nonspecific response. The examination was discontinued secondary to completion of protocol. Impression: 1. Lexiscan stress test test is negative for Lexiscan infusion induced EKG changes of ischemia. 2. Patient had mild chest discomfort with Lexiscan infusion which is likely a nonspecific response 3. Results of the nuclear portion of the test is as below Myocardial perfusion imaging study: Technique: The patient was injected with 15 millicuries of technetium 99m Cardiolite and subsequently rest SPECT Cardiolite nuclear imaging was obtained in the horizontal long, vertical long, and short axis views. The patient underwent pharmacologic [Regadenoson 0.4mg] evaluation. Please see above for details. The patient was injected with 45 millicuries of technetium 99m Cardiolite and subsequently stress SPECT Cardiolite nuclear imaging was obtained in the horizontal long, vertical long, and short axis views. A gated Cardiolite study at peak stress was obtained. Interpretation: Rest and stress SPECT Cardiolite nuclear imaging status post realignment, normalization, and attenuation correction demonstrate severely decreased to absent radioisotope uptake in the apex on both the rest and stress images suggestive of prior apical myocardial infarction. There is no evidence of significant reversibility suggestive of ischemia. Gated images reveal mild hypokinesis of the inferior apical wall. The reported LVEF is greater than 70%. Impression: 1. There is no evidence of significant ischemia. Evidence of prior apical myocardial infarction. 2. Estimated ejection fraction is greater than 70%. This note was generated with Apptiveation software. It may contain incorrect words, spelling, and punctuation that were not noted in checking the note before signing.
[2024-04-30 12:05] LABS: Bedside Glucose 399 mg/dL (74-106)
--- NOTE | 2024-04-30 12:07 | CASEMGMT ---
Social Work SW met with pt to discuss advance directives. SW explained HCPOA and pt was interested in completing documents however, pt does not have addresses for her daughter. Pt states she cannot call her dgts at this time to obtain addresses as they are at work. SW provided an Advance Directive Rack Card to pt and explained that she can call in for an appointment as an outpatient and complete documents with a SW at that time. Pt expressing understanding and agreement. JEY Cronin
--- NOTE | 2024-04-30 14:43 | PN.HOSP_ITS ---
Reason for Visit Reason for Visit: Diagnoses Elevated white blood cell count, unspecified (04/29/24) Morbid (severe) obesity due to excess calories (04/29/24) Hypertensive urgency (04/29/24) Old myocardial infarction (04/29/24) Mild intermittent asthma with (acute) exacerbation (04/29/24) Other forms of dyspnea (04/29/24) Chest pain, unspecified (04/29/24) Body mass index [BMI] 40.0-44.9, adult (04/29/24) Presence of aortocoronary bypass graft (04/29/24) Presence of coronary angioplasty implant and graft (04/29/24) Other specified postprocedural states (04/29/24) Subjective Subjective Feels well. No further chest pain. Objective Data Objective Data Vital Signs: Vital Signs Temp Pulse Resp BP Pulse Ox O2 Del Method 36.8 C 90 18 140/86 H 94 Room Air 04/30/24 03:00 04/30/24 03:00 04/30/24 03:00 04/30/24 03:00 04/30/24 03:00 04/30/24 03:00 Oxygen Delivery Method Room Air Weight: 100.8 kg Body Mass Index (BMI) 40.6 Intake & Output: Intake and Output for Last 24 Hours 04/28/24 04/29/24 04/30/24 23:59 23:59 23:59 Intake Total 661 / 661 Output Total 1300 / 1300 Balance -1300 / -1300 661 / 661 Lab / Micro Data 04/30/24 06:40 04/30/24 06:40 Labs: Laboratory Results - last 24 hr 04/29/24 15:25: WBC 14.8 H, RBC 5.33, Hgb 15.2 H, Hct 47.7 H, MCV 89.5, MCH 28.5, MCHC 31.9 L, RDW Std Deviation 43.5, RDW Coeff of Eveline 13.2, Plt Count 291, MPV 10.7, Immature Gran % (Auto) 0.600, Neut % (Auto) 79.6 H, Lymph % (Auto) 12.1 L, [place] % (Auto) 4.9, Eos % (Auto) 2.3, Baso % (Auto) 0.5, Absolute Neuts (auto) 11.7 H, Absolute Lymphs (auto) 1.79, Nucleated RBC % 0, D-Dimer Quant (PE/DVT) < 0.27 L, Sodium 136, Potassium 3.8, Chloride 101, Carbon Dioxide 26.0, Anion Gap 9, BUN 15, Creatinine 0.82, Estim Creat Clear Calc 70.51, Est GFR (MDRD) Af Amer 88, Est GFR (MDRD) Non-Af 73, BUN/Creatinine Ratio 18.2, Glucose 148 H, Calcium 9.6, Troponin I High Sens 12, B-Natriuretic Peptide 161.4 H 04/29/24 17:20: Urine Color Straw, Urine Clarity Clear, Urine pH 8.0, Ur Specific [place] 1.010, Urine Protein Negative, Urine Glucose (UA) Normal, Urine Ketones Negative, Urine Occult Blood 10 H, Urine Nitrite Negative, Urine Bilirubin Negative, Urine Urobilinogen Normal, Ur Leukocyte Esterase 25 H, Urine RBC 0-5 SEEN, Urine WBC 0-5 SEEN, Ur Squamous Epith Cells 0-5 SEEN, Urine Bacteria 0 SEEN, Urine Mucus 0 SEEN 04/29/24 18:23: Troponin I High Sens 14 04/29/24 21:55: POC Glucose 245 H 04/29/24 22:41: Hemoglobin A1c 9.4 H, Troponin I High Sens 17, Triglycerides 155, Cholesterol 197, LDL Cholesterol 102, VLDL Cholesterol 31, HDL Cholesterol 64, TSH 3.480 04/30/24 06:02: POC Glucose 365 H 04/30/24 06:40: WBC 17.7 H, RBC 5.60 H, Hgb 16.3 H, Hct 49.8 H, MCV 88.9, MCH 29.1, MCHC 32.7, RDW Std Deviation 43.2, RDW Coeff of Eveline 13.3, Plt Count 328, MPV 10.6, Immature Gran % (Auto) 1.200 H, Neut % (Auto) 90.6 H, Lymph % (Auto) 7.1 L, [place] % (Auto) 0.5, Eos % (Auto) 0.0, Baso % (Auto) 0.6, Absolute Neuts (auto) 16.1 H, Absolute Lymphs (auto) 1.26, Nucleated RBC % 0, Sodium 137, Potassium 4.4, Chloride 100, Carbon Dioxide 25.0, Anion Gap 13, BUN 19 H, C reatinine 1.08 H, Estim Creat Clear Calc 52.31, Est GFR (MDRD) Af Amer 64, Est GFR (MDRD) Non-Af 53 L, BUN/Creatinine Ratio 17.6, Glucose 352 H, Calcium 10.4 H , Phosphorus 3.7, Magnesium 2.1, Total Bilirubin 1.10 H, AST 15, ALT 19, Alkaline Phosphatase 116, Total Protein 8.4 H, Albumin 3.8, Globulin 4.6 H, A lbumin/Globulin Ratio 0.8 L 04/30/24 10:12: POC Glucose 404 H 04/30/24 11:48: POC Glucose 399 H Micro: Microbiology 04/29/24 17:25 Mucosa - Nose SARS-CoV-2, Influenza & RSV (PCR) - Final ABG Data ABG results: ABG 04/29/24 23:22 Specimen Type ART Sample Site L Radial pH 7.53 H Bicarbonate Actual 27.2 H Total CO2 28 Base Excess 4 H O2 Saturation 94 L ABG pCO2 32.8 L ABG pO2 60 L Hugh Test Positive O2 Delivery Device Room Air Vent Mode Not entered Radiography Diagnostic Testing: Radiology Impression Chest X-Ray 04/29/24 16:08 IMPRESSION: Stable mild cardiomegaly. Otherwise unremarkable chest radiograph. Reading Location: [facility] Physical Exam Const alert and no apparent distress HEENT head/scalp atraumatic and moist oral mucous membranes Resp normal respiratory effort, no retractions, no use of accessory muscles and clear to auscultation bilaterally Cardio regular rate, regular rhythm, S1 normal heart sound and S2 normal heart sound GI normal to inspection, nondistended, normoactive bowel sounds, soft to palpation, non-tender and non-distended Extremity normal to inspection and full ROM Neuro Sensorium / Orientation: awake and alert Assessment & Plan Assessment/Plan (1) Chest pain: QUALIFIERS: Chest pain type: unspecified Qualified Code(s): R07.9 - Chest pain, unspecified PLAN: Stress test negative. PLAN: Plan DM2 uncontrolled: resume insulin mix. Recommend follow up with endocrinology.
--- NOTE | 2024-04-30 14:46 | DS.PCM_ITS ---
Providers Date of Admission: 04/29/24 Primary Care Physician: Dr. Elsy Noel MD Reason For Visit: HYPERTENSIVE URGENCY Diagnosis Discharge Diagnosis (1) Chest pain: Status: Acute Code(s): R07.9 - Chest pain, unspecified Qualifiers: Chest pain type: unspecified Qualified Code(s): R07.9 - Chest pain, unspecified Plan: Stress test negative. Plan DM2 uncontrolled: resume insulin mix. Recommend follow up with endocrinology. Medications at Discharge Home Medications levothyroxine 112 mcg tablet 112 mcg PO DAILY #90 tabs 01/16/24 blood-glucose sensor (Dexcom G7 Sensor device) #1 ea 01/20/24 carvedilol 25 mg tablet 25 mg PO BID #60 tabs 04/15/24 insulin lispro protamine-lispro 100 unit/mL (75-25) subcutaneous pen See Rx Instructions subcut BID #15 mL 04/16/24 Weight / BMI Weight Weight: 100.8 kg Body Mass Index (BMI) 40.6 ABG / Lab / Microbiology Data 04/30/24 06:40 04/30/24 06:40 Laboratory: Laboratory Results - last 24 hr 04/29/24 15:25: WBC 14.8 H, RBC 5.33, Hgb 15.2 H, Hct 47.7 H, MCV 89.5, MCH 28.5, MCHC 31.9 L, RDW Std Deviation 43.5, RDW Coeff of Eveline 13.2, Plt Count 291, MPV 10.7, Immature Gran % (Auto) 0.600, Neut % (Auto) 79.6 H, Lymph % (Auto) 12.1 L, [place] % (Auto) 4.9, Eos % (Auto) 2.3, Baso % (Auto) 0.5, Absolute Neuts (auto) 11.7 H, Absolute Lymphs (auto) 1.79, Nucleated RBC % 0, D-Dimer Quant (PE/DVT) < 0.27 L, Sodium 136, Potassium 3.8, Chloride 101, Carbon Dioxide 26.0, Anion Gap 9, BUN 15, Creatinine 0.82, Estim Creat Clear Calc 70.51, Est GFR (MDRD) Af Amer 88, Est GFR (MDRD) Non-Af 73, BUN/Creatinine Ratio 18.2, Glucose 148 H, Calcium 9.6, Troponin I High Sens 12, B-Natriuretic Peptide 161.4 H 04/29/24 17:20: Urine Color Straw, Urine Clarity Clear, Urine pH 8.0, Ur Specific [place] 1.010, Urine Protein Negative, Urine Glucose (UA) Normal, Urine Ketones Negative, Urine Occult Blood 10 H, Urine Nitrite Negative, Urine Bilirubin Negative, Urine Urobilinogen Normal, Ur Leukocyte Esterase 25 H, Urine RBC 0-5 SEEN, Urine WBC 0-5 SEEN, Ur Squamous Epith Cells 0-5 SEEN, Urine Bacteria 0 SEEN, Urine Mucus 0 SEEN 04/29/24 18:23: Troponin I High Sens 14 04/29/24 21:55: POC Glucose 245 H 04/29/24 22:41: Hemoglobin A1c 9.4 H, Troponin I High Sens 17, Triglycerides 155, Cholesterol 197, LDL Cholesterol 102, VLDL Cholesterol 31, HDL Cholesterol 64, TSH 3.480 04/30/24 06:02: POC Glucose 365 H 04/30/24 06:40: WBC 17.7 H, RBC 5.60 H, Hgb 16.3 H, Hct 49.8 H, MCV 88.9, MCH 29.1, MCHC 32.7, RDW Std Deviation 43.2, RDW Coeff of Eveline 13.3, Plt Count 328, MPV 10.6, Immature Gran % (Auto) 1.200 H, Neut % (Auto) 90.6 H, Lymph % (Auto) 7.1 L, [place] % (Auto) 0.5, Eos % (Auto) 0.0, Baso % (Auto) 0.6, Absolute Neuts (auto) 16.1 H, Absolute Lymphs (auto) 1.26, Nucleated RBC % 0, Sodium 137, Potassium 4.4, Chloride 100, Carbon Dioxide 25.0, Anion Gap 13, BUN 19 H, C reatinine 1.08 H, Estim Creat Clear Calc 52.31, Est GFR (MDRD) Af Amer 64, Est GFR (MDRD) Non-Af 53 L, BUN/Creatinine Ratio 17.6, Glucose 352 H, Calcium 10.4 H , Phosphorus 3.7, Magnesium 2.1, Total Bilirubin 1.10 H, AST 15, ALT 19, Alkaline Phosphatase 116, Total Protein 8.4 H, Albumin 3.8, Globulin 4.6 H, A lbumin/Globulin Ratio 0.8 L 04/30/24 10:12: POC Glucose 404 H 04/30/24 11:48: POC Glucose 399 H Microbiology: Microbiology 04/29/24 17:25 Mucosa - Nose SARS-CoV-2, Influenza & RSV (PCR) - Final ABG: ABG 04/29/24 23:22 Specimen Type ART Sample Site L Radial pH 7.53 H Bicarbonate Actual 27.2 H Total CO2 28 Base Excess 4 H O2 Saturation 94 L ABG pCO2 32.8 L ABG pO2 60 L Hugh Test Positive O2 Delivery Device Room Air Vent Mode Not entered Radiography Diagnostic Testing: Radiology Impression Chest X-Ray 04/29/24 16:08 IMPRESSION: Stable mild cardiomegaly. Otherwise unremarkable chest radiograph. Reading Location: [id number]/C Instructions Discharge Diet: 2000 Calorie Control Diet DC O2, CPAP, BIPAP Needs Home O2 Discharge instructions: No Meaningful Use Info Meaningful Use Meaningful Use Diagnoses (Choose all that apply): None applicable Ischemic Stroke Statin Dosing Therapy Reference: STATIN DOSE THERAPY REFERENCE: * Patients > 75 years receive moderate or high dose statin therapy. * Patients 75 years or YOUNGER should receive HIGH intensity statin dose unless contraindicated. You will be required to document reason for non-treatment if statin daily dose does not meet guidelines. HIGH DOSE STATIN THERAPY DAILY Atorvastatin > than or = to 40 mg Rosuvastatin > than or = to 20 mg Amlodipine + Atorvastatin > than or = to 2.5/40 mg Ezetimibe + Simvastatin 10/80 mg Simvastatin 80mg Discharge Plan Admission Admit Date/Time: 04/29/24 20:28 Primary Reason for Your Visit: chest pain Attending Provider: Nathan Torres Primary Care Provider: Elsy Noel Consulting Providers: Jimmy Lomeli Instructions Additional Instructions / Restrictions: Your stress test was normal. No additional studies at this time. Please follow up with you primary care physician for you diabetes management. Discharge Orders/Prescriptions Prescriptions: Continued levothyroxine 112 mcg tablet 112 mcg PO DAILY Qty: 90 1RF (DME) Dexcom G7 Sensor Device See Rx Instructions .Route Qty: 1 10RF Rx Instructions: As directed carvedilol 25 mg tablet 25 mg PO BID Qty: 60 11RF Rx Instructions: must administer with a meal/food insulin lispro protamin-lispro 100 unit/mL (75-25) insulin pen See Rx Instructions subcut BID Qty: 15 3RF Patient Comments: REPORTS TAKING 34 UNITS SC WITH BREAKFAST AND 36 UNITS SC WITH SUPPER Rx Instructions: Subcutaneously 30 units with breakfast and 36 units with supper. Take at start of meal. Discontinued Brilinta 60 mg tablet 60 mg PO BID Referrals / Follow Up: Elsy Noel MD [Primary Care Provider] - Within 2 Weeks Disposition Disposition (needs filled in before D/C Order can be placed): Home, Self Care Charges/Coding Visit Charges Inpatient E&M: 32864 Disch Hosp
[2024-04-30 14:50] VITALS: BP 138/72; PULSE 83; RESP 16; TEMP 36.6; O2SAT 96
--- NOTE | 2024-04-30 15:10 | CASEMGMT ---
Patient has order for discharge. RN CM in to discuss needs at discharge. Patient denies needs or help at discharge. Patient had no further questions or concerns.
[2024-04-30 16:42] LABS: Bedside Glucose 307 mg/dL (74-106)
== END 2024-04-30 18:00 | disposition home or self-care (01) ==
LOC: ED 16:21 → PCU 20:30
PROVIDERS: Admitting Provider Internal Medicine; Emergency Provider Emergency Medicine; PCP Internal Medicine; Referring Provider Emergency Medicine
DX: I16.0 Hypertensive urgency (principal); I11.0 Hypertensive heart disease with heart failure; I50.9 Heart failure, unspecified; E66.01 Morbid (severe) obesity due to excess calories; Z68.41 Body mass index [BMI] 40.0-44.9, adult; E11.9 Type 2 diabetes mellitus without complications; Z79.4 Long term (current) use of insulin; I25.10 Atherosclerotic heart disease of native coronary artery without angina pectoris; Z95.1 Presence of aortocoronary bypass graft; Z87.891 Personal history of nicotine dependence; Z79.890 Hormone replacement therapy; Z95.5 Presence of coronary angioplasty implant and graft; Z79.02 Long term (current) use of antithrombotics/antiplatelets; Z86.718 Personal history of other venous thrombosis and embolism; R07.89 Other chest pain; K58.9 Irritable bowel syndrome, unspecified; E78.5 Hyperlipidemia, unspecified; E03.9 Hypothyroidism, unspecified; Z79.899 Other long term (current) drug therapy; J45.21 Mild intermittent asthma with (acute) exacerbation
CPT/HCPCS: 36415; 36600; 71045; 78452; 80048; 80053; 80061; 81001; 82803; 82962; 83036; 83735; 83880; 84100; 84443; 84484; 85025; 85379; 87631; 93005; 93017; 94640; 96365; 96372; 96375; 96376; 97161; 97802; 99221; 99285; A9500; A4216; G0378; J1940; J2405; J2785

== ENCOUNTER → 2024-07-16 | Outpatient (CLI) | payer MEDICARE, MEDICAID, SELFPAY ==
[2024-07-16 10:44] LABS: Hemoglobin A1c 9.6 % (<=5.6)
[2024-07-16 11:34] LABS: ALB/GLOB Ratio 1.2 RATIO (0.9-2.4); AST(SGOT) 16 U/L (<=31); Alanine Aminotransfer ALT/SGPT 12 U/L (<=34); Albumin, Serum 3.8 g/dL (3.4-4.8); Alkaline Phosphatase 94 U/L (35-104); Anion Gap 11 (5-15); BUN 16 mg/dL (4-19); BUN/Creat Ratio 18.8 RATIO (10-20); Calcium,Total 9.1 mg/dL (7.6-11.0); Carbon Dioxide 26.7 mmol/L (21.0-32.0); Chloride 97 mmol/L (98-108); Creatinine, Serum 0.84 mg/dL (0.70-1.20); EST Glomerular Filtration Rate 74 (>60); Globulin 3.3 g/dL (2.2-4.2); Glucose 253 mg/dL (70-99); Potassium 4.5 mmol/L (3.3-5.1); Protein, Total 7.1 g/dL (5.9-8.4); Sodium Level 134 mmol/L (133-145); Total Bilirubin 0.73 mg/dL (0.00-1.30)
[2024-07-16 11:46] LABS: Free T3 2.8 pg/mL (2.18-3.98); Vitamin B12 193 pg/mL (180-914); Vitamin D,25 Hydroxy 12.9 ng/mL (30-100)
== END | disposition home or self-care (01) ==
LOC: LAB 09:39
PROVIDERS: PCP Internal Medicine; Referring Provider Internal Medicine; Visit Provider Internal Medicine
DX: E11.65 Type 2 diabetes mellitus with hyperglycemia (principal); E03.9 Hypothyroidism, unspecified; I25.10 Atherosclerotic heart disease of native coronary artery without angina pectoris; I10 Essential (primary) hypertension; E78.5 Hyperlipidemia, unspecified; E66.9 Obesity, unspecified; E55.9 Vitamin D deficiency, unspecified; E53.8 Deficiency of other specified B group vitamins
CPT/HCPCS: 36415; 80053; 82306; 82607; 83036; 83735; 84439; 84443; 84481

== ENCOUNTER 2024-09-07 00:10 | Observation (INO) | payer MEDICARE, MEDICAID, SELFPAY ==
[2024-09-07] VITALS (28 sets, daily range): BP systolic 104–157; BP diastolic 48–96; PULSE 63–84; RESP 14–24; TEMP 36.6–36.8; O2SAT 89–95; BMI 42.0
--- NOTE | 2024-09-07 00:19 | EDS_ITS ---
HPI History of Present Illness Chief Complaint: Chest Pain Narrative Narrative: Chief complaint and HPI: Chest pain. 73-year-old female with past medical history of DM2, CAD with history of CABG and PCI, HTN, HLD, DVT secondary to , previous tobacco abuse presents for evaluation of chest pain. Patient states she developed intermittent chest pain yesterday that worsened approximately 2 hours ago. She describes it as pressure and left-sided. Does not radiate down the arm or into the neck/jaw. States that her last MS was 7 years ago and cannot remember if this feels similar. Patient states that she has been having exertional dyspnea in which she has had an extensive workup. States that she has an appointment to see Dr. Woo in the office next month as her current doctor is concerned that her dyspnea is secondary to CAD. She took Tylenol prior to arrival for her pain. She denies any fever, chills, URI symptoms, cough, abdominal pain, nausea, vomiting, bilateral lower extremity pain or edema. Review of systems: See HPI Medications: As listed on the chart Allergies: As listed on the chart PFSH: Per chart Vital signs: As listed on the chart. Reviewed. Physical exam: Gen: A&O x3, NAD Head: Normocephalic, atraumatic Eyes: No sclera icterus, conjunctiva clear ENT: Moist mucous membranes Neck: Trachea midline, No JVD CV: RRR, no murmurs, no peripheral edema Resp: Lungs CTA BL, no w/r/c GI: Abd soft, non-distended, non-tender, no r/r/g Musc: Full ROM, no deformity Skin: Warm, dry Neuro: Alert, oriented, grossly intact, sensation intact Psych: Cooperative, appropriate mood and affect [facility] Medical History Morbid obesity with BMI of 40.0-44.9, adult History of left heart catheterization (LHC) (~09/05/21) Abnormal nuclear stress test Dyspnea on exertion Mass of lip Elevated WBC count History of DVT (deep vein thrombosis) Presence of stent in coronary artery (~04/10/16) History of non-ST elevation myocardial infarction (NSTEMI) Cardiogenic shock Type 2 diabetes mellitus Atherosclerotic heart disease of [place] coronary artery without angina pectoris Essential hypertension Carpal tunnel syndrome Hyperlipemia Hypertension Hypothyroidism History of pneumonia IBS (irritable bowel syndrome) Diabetes Home Medications ?Medication ?Instructions ?Recorded ?Last Taken ?Type blood-glucose sensor (Dexcom G7 #1 ea 01/20/24 Unknown Rx Sensor device) carvedilol 25 mg tablet 25 mg PO BID blood pressure #60 04/15/24 Unknown Rx tabs insulin NPH-regular 70-30 U-100 See Rx Instructions gillette bcut 08/17/24 Unknown Rx insulin 100 unit/mL subcutaneous .COMPLEX #15 mL pen (Novolin 70-30 FlexPen U-100 Insulin) albuterol sulfate 90 mcg/actuation 2 puff inhalation Q 6H PRN 09/07/24 Unknown History aerosol inhaler shortness of breath or [place] ing levothyroxine 112 mcg tablet 112 mcg PO DAILY 09/07/24 Unknown History Allergy/AdvReac Type Severity Reaction Status Date / Time alogliptin Allergy Hives Verified 09/07/24 00:14 dulaglutide (From Trulicity) Allergy Hives Verified 09/07/24 00:14 glipizide Allergy Hives Verified 09/07/24 00:14 metformin Allergy Hives Verified 09/07/24 00:14 Penicillins (PCN) Allergy Hives Verified 09/07/24 00:14 aspirin AdvReac Severe blood Verified 09/07/24 00:14 clots canagliflozin (From Invokana) AdvReac Severe abdominal Verified 09/07/24 00:14 pain Family History Sister Breast cancer Mother Hypertension Heart disease Myocardial infarction, Onset Age: 61 Thyroid disorder Grandmother Arthritis Seizures Father CVA (cerebral vascular accident) Brother Heart disease Myocardial infarction Sister CAD (coronary artery disease) Surgical History Hx of heart bypass surgery History of coronary artery bypass surgery (~11/23/21) History of excision of mass (~07/2020) Presence of coronary angioplasty implant and graft (~04/10/16) History of tubal ligation History of hysterectomy History of tonsillectomy Social History household members: none Smoking Status: Former smoker how long ago did patient quit smokin12/2015 alcohol intake: never substance use type: does not use caffeine: Yes Type: coffee Number of servings: 1 frequency: 1-2 times per week EXAM Physical Exam Const Vital Signs: 09/07/24 00:11 09/07/24 00:14 09/07/24 00:17 Temperature 98.1 F Temperature Source Oral Pulse Rate 67 72 Respiratory Rate 17 21 H Respiratory Effort Short of Breath Blood Pressure 144/63 H Blood Pressure Mean 90 Pulse Ox 93 95 Oxygen Delivery Method Room Air 09/07/24 00:30 09/07/24 00:34 09/07/24 00:37 Temperature Temperature Source Pulse Rate 74 75 66 Respiratory Rate 18 18 20 H Respiratory Effort Blood Pressure 137/75 H Blood Pressure Mean 90 Pulse Ox 95 93 92 Oxygen Delivery Method 09/07/24 00:49 09/07/24 00:49 09/07/24 01:04 Temperature Temperature Source Pulse Rate 75 70 Respiratory Rate 19 H 16 Respiratory Effort Blood Pressure 148/64 H 148/64 H Blood Pressure Mean 85 85 Pulse Ox 94 94 Oxygen Delivery Method Room Air 09/07/24 01:05 09/07/24 01:06 09/07/24 01:10 Temperature Temperature Source Pulse Rate 73 73 69 Respiratory Rate 14 14 Respiratory Effort Blood Pressure 137/65 H 137/65 H 123/53 H Blood Pressure Mean 86 74 Pulse Ox 92 92 Oxygen Delivery Method Room Air 09/07/24 01:15 09/07/24 01:30 09/07/24 01:45 Temperature Temperature Source Pulse Rate 65 73 Respiratory Rate 14 23 H Respiratory Effort Blood Pressure 107/58 L 118/75 112/63 Blood Pressure Mean 73 87 75 Pulse Ox 92 94 89 Oxygen Delivery Method 09/07/24 02:00 Temperature Temperature Source Pulse Rate 69 Respiratory Rate 15 Respiratory Effort Blood Pressure Blood Pressure Mean Pulse Ox 94 Oxygen Delivery Method MDM MDM MDM Narrative Medical decision making narrative: 73-year-old female with past medical history of DM2, CAD with history of CABG and PCI, HTN, HLD, DVT secondary to , previous tobacco abuse presents for evaluation of chest pain. Onset intermittently yesterday but worsened over the past 2 hours. Has taken Tylenol. Differential diagnosis includes but is not limited to ACS, CHF, PE, pleurisy, electrolyte abnormality. On chart review, patient has not seen cardiology since 01/28/2023. She states this is because she switched to a data services developer at [place]. She states she will no longer be going to this data services developer instead has an appointment with Dr. Woo next month. Patient's last echocardiogram on chart review was 08/2021 with an EF of 65%. Her last stress test was in April 2024 which was negative. Aspirin was originally ordered for patient's chest pain however on chart review she has a listed as an allergy for blood clots. I did speak with the patient about this. She states that aspirin caused significant bleeding in the past for her that required admission but no blood clots. She declined the aspirin although given the risks versus benefits. Will give nitro sublingual instead. Cardiac workup ordered. EKG and chest x-ray reviewed see below. CBC with mild leukocytosis of 14.1, however on chart review this appears to be about patient's baseline. No anemia. Platelets unremarkable. Coagulation panel unremarkable. D-dimer unremarkable. BMP unremarkable except for hyperglycemia. Patient has a history of diabetes. No anion gap. BNP unremarkable. Troponin 21 and 19. On reevaluation, patient's chest pain has improved with nitroglycerin. Patient's heart score is 6 which places her at moderate risk. She just had a unremarkable stress test in April in which the plan was cardiology follow-up for possible heart cath. She is scheduled to see Dr. Woo next month. Cardiology consulted and patient discussed with Dr. Woo. Plan is for admission for ca rdiac catheterization. Patient will be admitted to the hospitalist service. Patient confirmed understanding of the plan. EKG: Interpreted by me/EM physician: EKG shows normal sinus rhythm with known right bundle branch block. No acute ischemic changes. Heart rate 72. Similar to previous EKG in April. Diagnostic: Interpreted by me/EM physician: Chest x-ray without pneumonia, effusion, pne umothorax. Enlarged cardiac silhouette per radiology. Impression: 1. Chest pain 2. Hyperglycemia with history of diabetes Lab Data Labs: Laboratory Results - last 24 hr 09/07/24 09/07/24 09/07/24 00:15 01:54 02:15 WBC 14.1 H RBC 4.70 Hgb 13.9 Hct 43.2 MCV 91.9 MCH 29.6 MCHC 32.2 RDW Std Deviation 44.1 H RDW Coeff of Eveline 13.1 Plt Count 272 MPV 11.6 Immature Gran % (Auto) 0.600 Neut % (Auto) 80.9 H Lymph % (Auto) 11.3 L [place] % (Auto) 5.1 Eos % (Auto) 1.6 Baso % (Auto) 0.5 Absolute Neuts (auto) 11.4 H Absolute Lymphs (auto) 1.59 Nucleated RBC % 0 PT 13.5 INR 1.0 APTT 25.3 D-Dimer Quant (PE/DVT) < 0.27 L Sodium 136 Potassium 4.5 Chloride 98 Carbon Dioxide 26.1 Anion Gap 12 BUN 13 Creatinine 0.86 Est GFR (MDRD) Non-Af 72 BUN/Creatinine Ratio 15.2 Glucose 232 H Calcium 9.5 Troponin T High Sens 21 H Troponin T Hi Sens 2 Hr 19 H NT pro BNP II 619 POC Glucose 210 H Radiography Diagnostic Testing: Clinical Impression(s) from Imaging Studies Chest X-Ray 09/07/24 01:00 IMPRESSION: No evidence for acute abnormality. Reading Location: [place] [address] Discharge Plan Triage Chief Complaint: Chest Pain ED Provider: Masoud Ospina Dx/Rx/DC Orders Prescriptions: No Action levothyroxine 112 mcg tablet 112 mcg PO DAILY albuterol sulfate 90 mcg/actuation HFA aerosol inhaler 2 puff inhalation Q6H PRN (Reason: shortness of breath or wheezing) (DME) Dexcom G7 Sensor Device See Rx Instructions .Route Qty: 1 10RF Rx Instructions: As directed carvedilol 25 mg tablet 25 mg PO BID Qty: 60 11RF Rx Instructions: must administer with a meal/food Novolin 70-30 FlexPen U-100 100 unit/mL (70-30) insulin pen See Rx Instructions subcut .COMPLEX Qty: 15 5RF Rx Instructions: subcutaneously; 28 units each AM (Breakfast) and 32 units each PM (Supper). Primary Care Provider: Elsy Noel Referrals: Elsy Noel MD [Primary Care Provider] - Print Language: Latvian
--- NOTE | 2024-09-07 00:37 | EKG12_ITS ---
Test Reason : CHEST Blood Pressure : */* mmHG Vent. Rate : 72 BPM Atrial Rate : 72 BPM P-R Int : 156 ms QRS Dur : 134 ms QT Int : 436 ms P-R-T Axes : 53 -5 58 degrees QTcB Int : 477 ms Normal sinus rhythm Right bundle branch block Abnormal ECG Confirmed by DOMINIC BRONSON MD ([id number]), video news editor CROW REYNA ([id number]) on 09/08/2024 6:47:37 AM Referred By: Confirmed By: DOMINIC BRONSON MD
--- NOTE | 2024-09-07 00:37 | EKG12_ITS ---
Test Reason : CHEST Blood Pressure : */* mmHG Vent. Rate : 72 BPM Atrial Rate : 72 BPM P-R Int : 156 ms QRS Dur : 134 ms QT Int : 436 ms P-R-T Axes : 53 -5 58 degrees QTcB Int : 477 ms Normal sinus rhythm Right bundle branch block Abnormal ECG Confirmed by DOMINIC BRONSON MD ([id number]), editor house organ CROW REYNA ([id number]) on 09/08/2024 6:47:37 AM Referred By: Confirmed By: DOMINIC BRONSON MD
[2024-09-07 00:47] LABS: Absolute Lymphocyte Count 1.59 X10^3/uL (0.83-4.51); Absolute Neutrophil Count 11.4 X10^3/uL (2.0-7.7); Basophil# 0.07 X10^3/uL; Basophil% 0.5 % (0-1); Eosinophil# 0.23 X10^3/uL; Eosinophils% 1.6 % (0-5); Hematocrit 43.2 % (37-47); Hemoglobin 13.9 g/dL (12.0-15.0); Lymphocyte # 1.59 X10^3/ul (0.83-4.51); Lymphocyte % 11.3 % (19-41); Mean Corp Hgb Conc 32.2 g/dL (32-36); Mean Corpuscular Hgb 29.6 pg (27.0-32.0); Mean Corpuscular Volume 91.9 fL (81-99); Mean Platelet Vol. 11.6 fl (6.2-12.0); Monocyte# 0.72 X10^3/uL; Monocyte% 5.1 % (0-10); NRBC Flagged by Analyzer 0 % (0-5); Neutrophil # 11.36 X10^3/uL (2.7-7.7); Neutrophil % 80.9 % (47-70); Platelet Count 272 K/mm3 (150-450); RBC Distribution Width CV 13.1 % (11.6-14.6); RBC Distribution Width SD 44.1 fl (35.1-43.9); White Blood Count 14.1 K/mm3 (4.4-11.0)
--- OUTSIDE RECORDS SUMMARY | 2024-09-07 00:55 | XMS RPT_ITS | CCD ---
Author Organization [facility]iniSyin Care Team Providers Care Paper Goods Machine Operator Name Role Phone VON ABARCA Unavailable Unavailable SAADIA HERNANDEZ Unavailable Unavailable SAADIA HERNANDEZ Unavailable Unavailable Dr. Harish Noel Primary Care Provider Dr. Harish Noel Attending Provider [phone] Dr. Harish Noel Referring Provider Roof ROLL FORM OPERATOR, ROLL FORM OPERATOR-C Rustam Garza Attending Provider Roof ROLL FORM OPERATOR, ROLL FORM OPERATOR-C Rustam Garza Referring Provider Roof ROLL FORM OPERATOR, ROLL FORM OPERATOR-C Rustam Garza Other Provider [phone]([facility])[phone] Forrest Jewell Attending Provider Dr. Jose Cotton Attending Provider Dr. Forrest Jewell Referring Provider Dr. Forrest Jewell Other Provider 1([facility])[phone] Harish Noel Primary Care Provider Dr. Hairsh Noel Referring Provider 1([facility])[phone] Roof ROLL FORM OPERATOR, ROLL FORM OPERATOR-C Rustam Garza Attending Provider HARISH NOEL MD Primary Care Physician BERT DAY, HARISH Primary Care Unavailable ANTWAN HESTER Attending Unavailable POLLY PHILIPPE MD Attending Unavailable BERT DAY, HARISH Primary Care Unavailable ANN CASE, MSIsabelle MARTINEZ Attending Natalie NOEL MD., HARISH Primary Care Unavailable ANN CASE, MSIsabelle MARTINEZ Attending Natalie NOEL MD., HARISH Primary Care Unavailable POLLY PHILIPPE MD Attending Unavailable BERT DAY, HARISH Primary Care Unavailable POLLY PHILIPPE MD Attending Unavailable BERT DAY, [facility] Primary Care Unavailable JOSE MARTIN MCARTHUR, POLLY Suggs Admitting Unavailable JOSE MARTIN MCARTHUR, POLLY Suggs Consulting Unavailable GERARDO MCARTHUR, DOLORES Consulting Unavailable JASMYN MCARTHUR, NIHAD Consulting Unavailable SAMUEL MANRIQUEZ MD, CHRIS Consulting Unavailable KELLEE MCARTHUR, GAGE Consulting Unavailanish PHILIPPE MD, POLLY Suggs Attending Unavailable BERT MCARTHUR., [facility] Primary Care Unavailable Dr. Harish Noel Primary Care Provider Aminah Prado Attending Provider Unavailable Dr. Harish Noel Attending Provider [phone] Dr. Harish Noel Referring Provider [phone] Roof ROLL FORM OPERATOR, ROLL FORM OPERATOR-C Rustam Garza Attending Provider Jairo Vogel Attending Provider Unavailable Dr. Harish Noel Primary Care Provider Aminah Prado Attending Provider Unavailable Dr. Harish Noel Attending Provider [phone] Dr. Harish Noel Referring Provider [phone] Roof ROLL FORM OPERATOR, ROLL FORM OPERATOR-C Rustam Garza Attending Provider Jairo Vogel Attending Provider Unavailable Dr. Harish Noel Primary Care Provider Dr. Harish Noel Referring Provider [phone] Roof ROLL FORM OPERATOR, ROLL FORM OPERATOR-C Rustam Garza Attending Provider Dr. Harish Noel Attending Provider [phone] Dr. Harish Noel MD Primary Care Provider [phone] Dr. Sly Blanco DO Referring Provider Dr. Sly Blanco DO Emergency Provider Lomeli DO, Dr. Marquez Admit Provider Unavail able Dr. Polly Lomeli DO Other Provider Unavail able Dr. Nathan Torres DO Attending Provider Anthony MCARTHUR, Dr. Natarajan Attending Provider Dr. Polly Lomeli DO Referring Provider Unav ailable Dr. Nathan Torres DO Other Provider Bert MCARTHUR, Dr. Chin Attending Provider Dr. Harish Noel MD Referring Provider BertHarish Primary Care Unavailable Bert, Harish Referring Unavailable Bert, Harish Attending Unavailable Bert, Harish Primary Care Unavailable Bert, Harish Referring Unavailable Bert, Harish Attending Unavailable Bert, Harish Primary Care Unavailable Ravi Lamb Attending Unavailable Bert, Harish Primary Care Unavailable de Polly Herr Consulting Unavailable Polly Lomeli Admitting Unavailable Nathan Torres Attending Unavailable Bella, Sly Referring Unavailable Bert, Harish Primary Care Unavailable Schwignacia, Nathan Attending Unavailable Bert, Harish Primary Care Unavailable de Polly Herr Referring Unavailable Delgado Cruz Attending Unavailabl e Bella, Sly Referring Unavailable Bert, Harish Primary Care Unavailable de Polly Herr Admitting Unavailable Polly Lomeli Attending Unavailable Polly Lomeli Consulting Unavailable Nathan Torres Consulting Unavailable Delgado Cruz Attending Unavailabl e Jopperi, Nathan Attending Unavailable Bert, Harish Primary Care Unavailable Harish Noel Attending Unavailable Bert, Harish Primary Care Unavailable Harish Noel Attending Unavailable Bert, Harish Primary Care Unavailable BertHarish Attending Unavailable Bert, Harish Primary Care Unavailable Schwiger, Nathan Attending Unavailable Allergies Allergy Classification Reported Allergen(s) Allergy Type Date of Onset Reaction(s) Facility (15 sources) alogliptin; Translations: [alogliptin] Drug Allergy 06-17-19 22 Weal (disorder) [facility]oth[facility]acic [facility] (15 sources) Aspirin; Translations: [aspirin] Drug Allergy 06-17-19 22 blood clots [facility] [place] (11 sources) canagliflozin Drug Allergy 06-17-19 [address] [facility] (11 sources) dulaglutide Drug Allergy 06-17-19 22 [facility] (15 sources) glipiZIDE; Translations: [glipizide] Drug Allergy 06-17-19 22 [facility] (14 sources) levothyroxine; Translations: [levothyroxine] Drug Allergy 06-17-19 Eruption of skin (disorder), Diarrhea (finding) [facility] Cardiothoracic Surgery (15 sources) metFORMIN; Translations: [metformin] Drug Allergy 06-17-19 Hives, Diarrhea [facility] (12 sources) Penicillins; Translations: [Penicillins] Allergy to substance 06-17-[address] [facility] (4 sources) canagliflozin; Translations: [canagliflozin] Drug Allergy Stomach Pains, Diarrhea [facility] (4 sources) dulaglutide; Translations: [dulaglutide] Drug Allergy [facility] (4 sources) HMG-CoA reductase inhibitor; Translations: [statins] Drug allergy [facility] (4 sources) Penicillin; Translations: [penicillins] Drug Allergy [facility] (1 source) alogliptin Drug Allergy 07-03-[address] [facility] (1 source) Aspirin Drug Allergy 07-03-[address] [facility] (1 source) canagliflozin Drug Allergy 07-03-[address] [facility] (1 source) dulaglutide Drug Allergy 07-03-[address] [facility] (1 source) glipiZIDE Drug Allergy 07-03-[address] [facility] (1 source) metFORMIN Drug Allergy 07-03-[address] [facility] Rep[facility] Medications Current Medications Medication Drug Class(es) Dates Sig (Normalized) Sig (Original) Blood-Glucose Sensor (Dexcom G7 Sensor) device (1 source) Start: 01-20-2024 Blood-Glucose Sensor (Dexcom G7 Sensor) device Active 0 .Route 1 January 20, 2024 1:00am As directed bumetanide 1 mg oral tablet (14 sources) Loop Diuretic Start: 01-11-2022 take 1 tablet by mouth once daily Bumetanide Active 2 MG PO DAILY January 11, 2022 12:00am Patient unsure of strength of tablet Start: 11-29-2021 End: 01-08-2022 take 1 tablet by mouth once daily as needed for edema Bumetanide 2 mg tablet Discontinued 2 mg PO DAILY as needed for edema December 28, 2021 8:23am January 08, 2022 2:18pm carvedilol 25 mg oral tablet (20 sources) alpha-Adrenergic Jung, beta-Adrenergic Jung Start: 12-05-2021 End: 04-15-2024 take 1 tablet by mouth twice daily at mealtime Carvedilol 25 mg tablet Active 25 mg PO TWICE A DAY 60 April 15, 2024 5:32pm must administer with a meal/food Start: 11-29-2021 Coreg 25 mg or al tablet Dose : 25 mg = 1 tab(s), Oral, BIDM, # 60 tab(s), 3 Refill(s) Start Date: 11/29/21 Status: Ordered Start: 11-23-2021 End: 11-23-2021 carvedilol 3.125 mg oral tab let Start: 11/23/21 5:00:00 EDT, Dose = 3.125 mg, = 0.5 tab(s), Oral, PREOP pharm, 13 hour(s), Stop: 11/23/21 17:59:00 EDT, 0, 11/23/21 5:00:00 EDT Notes: Take with food to lessen risk of orthostatic hypotension. Start Date: 11/23/21 Stop Date: 11/23/21 Status: Completed Start: 09-20-2021 carvedilol 3.1 25 mg oral tablet Dose : 3.125 mg = 1 tab(s), Oral, BID, 0 Refill(s) Start Date: 09/20/21 Status: Ordered Start: 03-12-2018 End: 12-05-2021 take 1 tablet by mouth twice daily Carvedilol 3.125 mg tablet Discontinued 3.125 mg PO TWICE A DAY 180 September 25, 2021 2:43pm December 05, 2021 1:07pm cholecalciferol 0.025 mg oral capsule (1 source) Vitamin D Start: 01-15-2022 take 25 ug by mouth once daily Cholecalciferol (Vitamin D3) Active 25 MCG PO DAILY January 15, 2022 12:00am 3 ml insulin aspart protamine, human 70 unt/ml / insulin aspart, human 30 unt/ml pen injector (12 sources) Insulin Analog Start: 01-18-2021 NovoLOG Mix 70 /30 FlexPen 3 mL Pen See Instructions, inject 24 units subcutaneously twice a day before meals, # 15 mL, 3 Refill(s), [facility]: [facility], 157.2, cm, 01/21/20 14:13:00 EST, Height, kg, 01/21/20 14:13:00 EST, Dosing Weight Start Date: 01/18/21 Status: Ordered Start: 03-12-2018 End: 12-14-2019 Insulin Asp Prt-Insulin Aspa rt 100 UNITS/ML insulin pen Discontinued 0 U SC TWICE A DAY March 12, 2018 1:00am December 14, 2019 4:15pm 8-16 UNITS BID SLIDING SCALE Please contact the information source for Protocol details. Start: 03-12-2018 End: 12-14-2019 Insulin Asp Prt-Insulin Aspa rt Discontinued 0 UNIT SC TWICE A DAY March 12, 2018 1:00am December 14, 2019 4:15pm 8-16 UNITS BID SLIDING SCALE Insulin Nph And Regular Human (20 sources) Insulin Start: 07-02-2024 Insulin Nph An d Regular Human (Novolin 70-30 Flexpen U-100) 100 unit/mL (70-30) insulin pen Active 0 SC .COMPLEX July 02, 2024 1:46pm subcutaneously; 28 units each AM (Breakfast) and 32 units each PM (Supper). Start: 07-02-2024 End: 07-02-2024 Insulin Nph And Regular Colleen n (Novolin 70-30 Flexpen U-100) 100 unit/mL (70-30) insulin pen Discontinued SC July 02, 2024 12:00am July 02, 2024 1:48pm Start: 01-20-2024 End: 03-16-2024 Insulin Nph And Regular Colleen n 100 unit/mL (70-30) insulin pen Discontinued 0 SC EVERY MORNING January 20, 2024 8:57am March 16, 2024 3:18pm NOVOLIN 70/30 32 units sq in am 40 units sq in pm Start: 01-16-2024 End: 01-20-2024 Insulin Nph And Regular Colleen n 100 unit/mL (70-30) insulin pen Discontinued 0 SC EVERY MORNING January 16, 2024 3:16pm January 20, 2024 8:58am NOVOLIN 70/30 26 units sq in am 30 units sq in pm Start: 06-25-2023 End: 01-16-2024 Insulin Nph And Regular Colleen n 100 unit/mL (70-30) insulin pen Discontinued 0 SC EVERY MORNING June 25, 2023 10:35am January 16, 2024 3:17pm NOVOLIN 70/30 26 units sq in am 30 units sq in pm Start: 12-19-2022 End: 06-25-2023 Insulin Nph And Regular Colleen n 100 unit/mL (70-30) insulin pen Discontinued 0 SC EVERY MORNING December 19, 2022 11:26am June 25, 2023 10:35am NOVOLIN 70/30 26 units sq in am 30 units sq in pm Start: 06-04-2022 End: 12-19-2022 Insulin Nph And Regular Colleen n 100 unit/mL (70-30) insulin pen Discontinued 0 SC EVERY MORNING June 04, 2022 1:03pm December 19, 2022 11:26am NOVOLIN 70/30 26 units sq in am 30 units sq in pm Start: 06-04-2022 inject 26 [IU] by gillette bcutaneous injection once daily in the morning Insulin Nph And Regular Human Active 0 SC EVERY MORNING June 04, 2022 1:03pm NOVOLIN 70/30 26 units sq in am 30 units sq in pm Start: 06-04-2022 End: 06-04-2022 Insulin Nph And Regular Colleen n 100 unit/mL (70-30) insulin pen Discontinued 0 SC EVERY MORNING June 04, 2022 12:00am June 04, 2022 1:03pm NOVOLIN 70/30 26 units sq in am 30 units sq in pm Start: 06-04-2022 End: 06-04-2022 inject 26 [IU] by subcutaneous injection once daily in the morning Insulin Nph And Regular Human Discontinued 0 SC EVERY MORNING June 04, 2022 12:00am June 04, 2022 1:03pm NOVOLIN 70/30 26 units sq in am 30 units sq in pm Start: 05-16-2022 End: 06-04-2022 inject 26 [IU] by subcutaneous injection twice daily in the morning, then inject 30 [IU] by subcutaneous injection in the evening Insulin Nph And Regular Human 100 unit/mL (70-30) insulin pen Discontinued 0 SC TWICE A DAY May 16, 2022 2:59pm June 04, 2022 11:04am 26 units each AM and 30 units each PM subcutaneously. Start: 05-16-2022 End: 06-04-2022 inject 26 [IU] by subcutaneous injection twice daily in the morning, then inject 30 [IU] by subcutaneous injection in the evening Insulin Nph And Regular Human Discontinued 0 SC TWICE A DAY May 16, 2022 2:59pm June 04, 2022 11:04am 26 units each AM and 30 units each PM subcutaneously. Start: 02-05-2022 End: 05-16-2022 Insulin Nph And Regular Colleen n 100 unit/mL (70-30) insulin pen Discontinued 24 U SC TWICE A DAY February 05, 2022 2:52pm May 16, 2022 3:03pm Start: 02-05-2022 End: 05-16-2022 Insulin Nph And Regular Colleen n Discontinued 24 UNIT SC TWICE A DAY February 05, 2022 2:52pm May 16, 2022 3:03pm Start: 01-08-2022 End: 02-05-2022 Insulin Nph And Regular Colleen n 100 unit/mL (70-30) insulin pen Discontinued 24 U SC TWICE A DAY January 08, 2022 2:40pm February 05, 2022 2:54pm Start: 01-08-2022 End: 02-05-2022 Insulin Nph And Regular Colleen n Discontinued 24 UNIT SC TWICE A DAY January 08, 2022 2:40pm February 05, 2022 2:54pm Start: 01-08-2022 Insulin Nph An d Regular Human Active 24 UNIT SC TWICE A DAY January 08, 2022 1:40pm Start: 01-08-2022 Insulin Nph An d Regular Human Active 24 UNIT SC TWICE A DAY January 08, 2022 2:40pm Start: 06-07-2021 End: 12-05-2021 Insulin Nph And Regular Colleen n 100 unit/mL (70-30) insulin pen Discontinued 24 U SC TWICE A DAY June 07, 2021 8:35am December 05, 2021 1:10pm Start: 06-07-2021 End: 12-05-2021 Insulin Nph And Regular Colleen n Discontinued 24 UNIT SC TWICE A DAY June 07, 2021 7:35am December 05, 2021 12:10pm Start: 06-07-2021 End: 12-05-2021 Insulin Nph And Regular Colleen n Discontinued 24 UNIT SC TWICE A DAY June 07, 2021 8:35am December 05, 2021 1:10pm Start: 06-07-2021 Insulin Nph An d Regular Human Active 24 UNIT SC TWICE A DAY June 07, 2021 8:35am Start: 06-07-2021 End: 06-07-2021 Insulin Nph And Regular Colleen n 100 unit/mL (70-30) insulin pen Discontinued 24 U SC TWICE A DAY June 07, 2021 8:25am June 07, 2021 8:40am Start: 06-07-2021 End: 06-07-2021 Insulin Nph And Regular Colleen n Discontinued 24 UNIT SC TWICE A DAY June 07, 2021 7:25am June 07, 2021 7:40am Start: 06-07-2021 End: 06-07-2021 Insulin Nph And Regular Colleen n Discontinued 24 UNIT SC TWICE A DAY June 07, 2021 8:25am June 07, 2021 8:40am Start: 07-05-2020 End: 06-07-2021 inject 24 [IU] by subcutaneous injection once daily Insulin Nph And Regular Human Discontinued 24 UNIT SQ DAILY July 05, 2020 12:59pm June 07, 2021 8:26am Start: 07-05-2020 End: 06-07-2021 inject 22 [IU] by subcutaneous injection at bedtime Insulin Nph And Regular Human Discontinued 22 UNIT SQ AT BEDTIME July 05, 2020 12:59pm June 07, 2021 8:26am Start: 07-05-2020 End: 06-07-2021 Insulin Nph And Regular Colleen n 100 UNIT/ML insulin pen Discontinued 24 U SQ DAILY July 05, 2020 12:00am June 07, 2021 8:26am Start: 07-05-2020 End: 06-07-2021 Insulin Nph And Regular Colleen n 100 UNIT/ML insulin pen Discontinued 22 U SQ AT BEDTIME July 05, 2020 12:00am June 07, 2021 8:26am Start: 07-05-2020 End: 06-07-2021 inject 24 [IU] by subcutaneous injection once daily Insulin Nph And Regular Human Discontinued 24 UNIT SQ DAILY July 04, 2020 11:00pm June 07, 2021 7:26am Start: 07-05-2020 End: 06-07-2021 inject 22 [IU] by subcutaneous injection at bedtime Insulin Nph And Regular Human Discontinued 22 UNIT SQ AT BEDTIME July 04, 2020 11:00pm June 07, 2021 7:26am Start: 07-05-2020 End: 06-07-2021 inject 24 [IU] by subcutaneous injection once daily Insulin Nph And Regular Human Discontinued 24 UNIT SQ DAILY July 05, 2020 12:00am June 07, 2021 8:26am Start: 07-05-2020 End: 06-07-2021 inject 22 [IU] by subcutaneous injection at bedtime Insulin Nph And Regular Human Discontinued 22 UNIT SQ AT BEDTIME July 05, 2020 12:00am June 07, 2021 8:26am levothyroxine sodium 0.125 mg oral tablet (20 sources) l-Thyroxine Start: 07-20-2024 take 1 tablet by mouth once daily Levothyroxine 125 mcg tablet Active 125 ug PO DAILY July 20, 2024 1:45pm Start: 10-01-2022 End: 07-20-2024 take 1 tablet by mouth once daily Levothyroxine 112 mcg tablet Discontinued 112 ug PO DAILY January 16, 2024 3:16pm July 20, 2024 1:45pm Start: 06-12-2022 End: 10-01-2022 take 1 tablet by mouth once daily Levothyroxine 100 mcg tablet Discontinued 100 ug PO DAILY June 12, 2022 11:30am October 01, 2022 6:55am Start: 05-16-2022 End: 06-12-2022 take 1 tablet by mouth once daily Levothyroxine 88 mcg tablet Discontinued 88 ug PO DAILY May 16, 2022 1:00am June 12, 2022 11:32am Start: 06-09-2021 End: 06-16-2021 take 1 tablet by mouth once daily Levothyroxine 50 mcg tablet Discontinued 50 ug PO DAILY June 09, 2021 3:20pm June 16, 2021 3:25pm Start: 03-12-2018 End: 06-07-2021 take 1 tablet by mouth once daily Levothyroxine 88 MCG tablet Discontinued 88 ug PO DAILY March 12, 2018 1:00am June 07, 2021 8:26am nitroglycerin 0.4 mg sublingual tablet (1 source) Nitrate Vasodilator Start: 08-31-2019 nitroglyce rin 0.4 mg sublingual tablet 0.4 mg Dose = 1 tab(s), Sublingual, q5min, PRN as needed for chest pain, # 25 tab(s), 3 Refill(s), Pharmacy: [facility] [address], 157.[place], cm, 08/31/19 16:27:00 EDT, Height, kg, 08/31/19 16:27:00 EDT, Dosing Weight Start Date: 08/31/19 Status: Ordered traZODone hydrochloride 50 mg oral tablet (7 sources) Serotonin Reuptake Inhibitor Start: 12-05-2021 traZODone 50 mg oral tablet Dose : 25 mg = 0.5 tab(s), Oral, qHS, # 15 tab(s), 0 Refill(s) Start Date: 12/05/21 Status: Ordered Start: 12-05-2021 End: 01-08-2022 Trazodone 50 mg tablet Disco ntinued 25 mg PO AT BEDTIME as needed December 05, 2021 12:00am January 08, 2022 2:20pm Start: 12-05-2021 End: 01-08-2022 take 25 mg by mouth at bedtime Trazodone Discontinued 25 MG PO AT BEDTIME December 05, 2021 12:00am January 08, 2022 2:20pm Completed/Discontinued Medications Medication Drug Class(es) Dates Sig (Normalized) Sig (Original) acetaminophen 325 mg oral tablet (8 sources) Start: 12-05-2021 End: 01-11-2022 take 2 tablets by mouth every four hours as needed Acetaminophen 325 mg tablet Discontinued 650 mg PO Q4H as needed December 05, 2021 12:00am January 11, 2022 3:44pm Start: 12-05-2021 End: 01-11-2022 take 650 mg by mouth every four hours Acetaminophen Discontinued 650 MG PO Q4H December 05, 2021 12:00am January 11, 2022 3:44pm Start: 11-29-2021 acetaminophen Dose : 650 mg = 2 tab(s), Oral, q4h, PRN Pain, scale 1-6, 0 Refill(s) Start Date: 11/29/21 Status: Ordered [id number] 200 actuat albuterol 0.09 mg/actuat metered dose inhaler (12 sources) beta2-Adrenergic Agonist Start: 01-16-2024 End: 04-29-2024 Albuterol Sulfate 90 mcg/actuation HFA aerosol inhaler Discontinued 2 NMA INHALATION EVERY 6 HOURS as needed for shortness of breath or wheezing 8.5 January 16, 2024 12:00am April 29, 2024 9:11pm Start: 04-15-2019 End: 02-25-2020 Albuterol Sulfate 1 INHALER inhaler Discontinued 2 NMA INHALATION EVERY 4 HOURS NEEDED as needed for Wheezing April 15, 2019 1:00am February 25, 2020 3:47pm Start: 04-15-2019 End: 02-25-2020 take 1 puff(s) by inhalation every four hours as needed Albuterol Sulfate Discontinued 2 PUFF INHALATION EVERY 4 HOURS NEEDED April 15, 2019 1:00am February 25, 2020 3:47pm amLODIPine 2.5 mg oral tablet (3 sources) Dihydropyridine Calcium Channel Jung Start: 04-11-2022 End: 05-16-2022 take 1 tablet by mouth once daily Amlodipine 2.5 mg tablet Discontinued 2.5 mg PO DAILY April 11, 2022 1:00am May 16, 2022 2:12pm atorvastatin 40 mg oral tablet (17 sources) HMG-CoA Reductase Inhibitor Start: 09-05-2021 End: 09-06-2021 take 1 tablet by mouth at bedtime Atorvastatin 40 mg tablet Discontinued 40 mg PO AT BEDTIME September 05, 2021 11:16am September 06, 2021 2:13pm clopidogrel 75 mg oral tablet (1 source) [id number] Platelet Inhibitor Start: 01-28-2023 End: 01-16-2024 take 1 tablet by mouth once daily Clopidogrel 75 mg tablet Discontinued 75 mg PO DAILY January 28, 2023 1:00am January 16, 2024 12:53pm docusate calcium 240 mg oral capsule (8 sources) Start: 11-29-2021 End: 01-08-2022 take 1 capsule by mouth twice daily as needed Docusate Calcium 240 mg capsule Discontinued 240 mg PO TWICE A DAY as needed December 05, 2021 12:00am January 08, 2022 2:18pm GlucaGen (3 sources) Antihypoglycemic Agent Start: 11-29-2021 GlucaGen Dose : 1 mg = 1 mL, Intramuscular, AsDirected, PRN Hypoglycemia, 0 Refill(s) Start Date: 11/29/21 Status: Ordered Handicap Placard (5 sources) Start: 01-08-2022 End: 01-09-2023 Handicap Placard Discontinued 0 .Route .MEDSUPPLY January 08, 2022 12:00am January 08, 2023 12:00am January 09, 2023 12:09am 1 year RX Start: 01-08-[address] Active 0 .Route .MEDSUPPLY January 07, 2022 11:00pm 1 year RX Start: 01-08-[address] Active 0 .Route .MEDSUPPLY January 08, 2022 12:00am 1 year RX 3 ml insulin glargine 100 unt/ml pen injector (8 sources) Insulin Analog Start: 12-05-2021 Lantus Solosta r Pen 100 units/mL 3 mL Pen 30, Subcutaneous, qDay, 0 Refill(s) Start Date: 12/05/21 Status: Ordered Start: 12-05-2021 End: 01-08-2022 Insulin Glargine (Lantus Fernanda ostar U-100 Insulin) 100 unit/mL (3 mL) insulin pen Discontinued 30 U SC EVERY MORNING December 05, 2021 12:00am January 08, 2022 2:19pm Start: 11-29-2021 inject 1 dose by sub cutaneous injection once daily at bedtime Lantus 100 units/mL10 ml vial solution Dose : 25 unit(s) =, Subcutaneous (INT), qHS, 0 Refill(s) Start Date: 11/29/21 Status: Ordered 3 ml insulin lispro 100 unt/ml pen injector (19 sources) Insulin Analog Start: 12-05-2021 End: 01-08-2022 Insulin Lispro (Humalog Kwikpen Insulin) 100 unit/mL insulin pen Discontinued 15 U SC once daily before lunch December 05, 2021 12:00am January 08, 2022 2:19pm Start: 11-29-2021 HumaLOG 100 un its/mL subcutaneous solution Give 0-10 units/dose, Subcutaneous, achs, 0 Refill(s) Start Date: 11/29/21 Status: Ordered 3 ml insulin lispro 25 unt/ml / insulin lispro protamine, human 75 unt/ml pen injector (2 sources) Insulin Analog Start: 04-16-2024 End: 07-02-2024 Insulin Lispro Protamin-Lispro 100 unit/mL (75-25) insulin pen Discontinued 0 SC TWICE A DAY April 16, 2024 11:31am July 02, 2024 12:58pm Subcutaneously 30 units with breakfast and 36 units with supper. Take at start of meal. Start: 03-16-2024 End: 04-16-2024 Insulin Lispro Protamin-Lisp ro 100 unit/mL (75-25) insulin pen Discontinued 0 SC TWICE A DAY March 16, 2024 1:00am April 16, 2024 11:37am Subcutaneously 28 units with breakfast and 34 units with supper. Take at start of meal. 24 hr isosorbide mononitrate 30 mg extended release oral tablet (10 sources) Nitrate Vasodilator Start: 09-05-2021 End: 09-05-2021 take 1 tablet by mouth once daily, then take 1 tablet by mouth every twenty-four hours Isosorbide Mononitrate 30 mg tablet extended release 24 hr Discontinued 30 mg PO DAILY September 05, 2021 12:00am September 05, 2021 11:17am liothyronine sodium 0.005 mg oral tablet (11 sources) l-Triiodothyroni ne Start: 04-12-2019 End: 12-14-2019 take 1 tablet by mouth once daily Liothyronine 5 MCG tablet Discontinued 5 ug PO DAILY April 12, 2019 1:00am December 14, 2019 4:15pm lisinopril 10 mg oral tablet (11 sources) Angiotensin Converting Enzyme Inhibitor Start: 02-25-2020 End: 03-21-2020 take 1 tablet by mouth once daily Lisinopril 10 mg tablet Discontinued 10 mg PO DAILY February 25, 2020 1:00am March 21, 2020 2:00pm losartan potassium 25 mg oral tablet (1 source) Angiotensin 2 Receptor Jung Start: 01-28-2023 End: 08-05-2023 take 1 tablet by mouth once daily Losartan 25 mg tablet Discontinued 25 mg PO DAILY January 28, 2023 1:00am August 05, 2023 1:57pm microencapsulated potassium chloride 20 meq extended release oral tablet (18 sources) Start: 01-11-2022 End: 10-03-2022 take 1 tablet by mouth twice daily as needed Potassium Chloride 20 mEq tablet,ER particles/surekha ls Discontinued 20 meq PO TWICE A DAY as needed for swelling January 11, 2022 12:00am October 03, 2022 1:10pm Start: 12-05-2021 End: 01-08-2022 take 1 tablet by mouth once daily as needed Potassium Chloride 20 mEq tablet extended release Discontinued 20 meq PO DAILY as needed December 28, 2021 8:22am January 08, 2022 2:20pm Start: 11-29-2021 End: 01-03-2022 Potassium Chloride (Eqv-K-Ta b) 20 mEq oral tablet, extended release Dose : 20 mEq = 1 tab(s), Oral, qDay, PRN Swelling, Take with food take on days you take bumetanide, # 7 tab(s), 0 Refill(s), other reason (Rx) Start Date: 12/27/21 Stop Date: 01/03/22 Status: Ordered pravastatin sodium 20 mg oral tablet (7 sources) HMG-CoA Reductase Inhibitor Start: 09-06-2021 End: 09-07-2021 take 1 tablet by mouth at bedtime Pravastatin 20 mg tablet Discontinued 20 mg PO AT BEDTIME September 06, 2021 12:00am September 07, 2021 10:28am sulfamethoxazole 800 mg / trimethoprim 160 mg oral tablet (11 sources) Dihydrofolate Reductase Inhibitor Antibacterial, Sulfonamide Antimicrobial Start: 05-11-2020 End: 05-11-2020 Sulfamethoxazole- Trimethoprim (Bactrim Ds) 800-160 mg tablet Discontinued 1 {tbl} PO TWICE A DAY May 11, 2020 1:00am May 11, 2020 12:16pm thyroid (half-way) 60 mg oral tablet (18 sources) Start: 06-16-2021 End: 05-16-2022 take 1 tablet by mouth once daily Thyroid (Pork) ([place] Thyroid) 60 mg tablet Discontinued 60 mg PO DAILY March 16, 2022 2:53pm May 16, 2022 3:02pm ticagrelor 60 mg oral tablet (20 sources) Start: 01-16-2024 End: 04-30-2024 take 1 tablet by mouth twice daily Ticagrelor (Brilinta) 60 mg tablet Discontinued 60 mg PO TWICE A DAY January 16, 2024 12:00am April 30, 2024 3:49pm Start: 01-11-2022 End: 04-11-2022 take 1 tablet by mouth twice daily Ticagrelor 90 mg tablet Discontinued 90 mg PO TWICE A DAY 180 January 11, 2022 4:16pm April 11, 2022 3:35pm Start: 03-12-2018 End: 09-05-2021 take 1 tablet by mouth twice daily Ticagrelor 90 mg tablet Discontinued 90 mg PO TWICE A DAY 180 September 21, 2020 3:42pm September 05, 2021 11:15am traMADol hydrochloride 50 mg oral tablet (6 sources) Opioid Agonist Start: 11-29-2021 End: 01-08-2022 take 1 tablet by mouth every six hours as needed Tramadol 50 mg tablet Discontinued 50 mg PO EVERY 6 HOURS as needed December 05, 2021 12:00am January 08, 2022 2:20pm triamcinolone acetonide 1 mg/ml topical cream (2 sources) Corticosteroid Start: 07-28-2022 End: 10-03-2022 Triamcinolone Acetonide 0.1 % cream Discontinued 1 NMA TOPICAL TWICE A DAY July 28, 2022 12:00am October 03, 2022 1:10pm Problems Active Problems Problem Classification Problem Date Documented Da te Episodic/Chronic Abdominal pain (1 source) Abdominal pain; Translations: [Unspecified abdominal pain] 09-11-2023 Episodic Acute bronchitis (4 sources) Acute bronchitis with bronchospasm; Translations: [Acute bronchitis, unspecified] 01-29-2022 Episodic Acute myocardial infarction (4 sources) Myocardial infarction 01-18-2016 Chronic Comment on above: 01-05-16 Echo EF 50% 01-03-16 PCI with ba johanneon angioplasty and stenting LAD, Cardiogenic shock with resp failure Acute posthemorrhagic anemia (2 sources) Acute posthemorrhagic anemia; Translations: [Acute posthemorrhagic anemia] Onset: 2 Episodic Allergic reactions (2 sources) Contact dermatitis; Translations: [Unspecified contact dermatitis, unspecified cause] 07-28-2022 Episodic Asthma (3 sources) Asthmatic bronchitis; Translations: [Unspecified asthma, uncomplicated] Onset: 5 05-07-2024 Chronic Chronic kidney disease (6 sources) Chronic kidney disease stage 3; Translations: [Chronic kidney disease, stage 3 (moderate)] Onset: 2 07-14-2019 Chronic Chronic obstructive pulmonary disease and bronchiectasis (4 sources) Bronchitis 01-03-2016 Episodic Complications of surgical procedures or medical care (4 sources) Postoperative complication; Translations: [Other postprocedural complications and disorders of genitourinary system] Onset: 2 Episodic Conditions associated with dizziness or vertigo (11 sources) Dizziness; Translations: [Dizziness and giddiness] 09-03-2018 Episodic Congestive heart failure; nonhypertensive (5 sources) Congestive heart failure; Translations: [Diastolic heart failure] 08-30-2019 Chronic Comment on above: ECHO: 05/24/16: NORMAL LV SIZE, WALL THICKNESS IS UPPER NORMAL WITH EF 55-60%. SEPTAL MOTION IS ABNORMAL AND THE APEX APPEARED MILDLY HYPOKINETIC. SMALL PERICARDIAL EFFUSION WITH FIBRINOUS APPEARING MATERIAL. TRACE TO MILD MR, TRACE TR. 01/05/2016 echo showed The cavity size is normal. Wall thickness is normal. Systolic function is at the lower limits of normal. The estimated ejection fraction is 50%. Hypokinesis of the apical myocardium. The study is not technically sufficient to allow evaluation of LV diastolic function. Coronary atherosclerosis and other heart disease (20 sources) History of non-ST segment elevation myocardial infarction; Translations: [Old myocardial infarction] Onset: 2 Chronic Comment on above: She is status post L AD and RCA PCI. Coronary atherosclerosis and other heart disease (20 sources) Stented coronary artery; Translations: [Presence of coronary angioplasty implant and graft] Onset: 7 Episodic Comment on above: PCI/BRENNEN in mid RCA 0 04/10/16; PCI/BRENNEN in the prox LAD 01/03/16 Diabetes mellitus with complications (8 sources) Type II diabetes mellitus uncontrolled; Translations: [Hyperglycemia due to type 2 diabetes mellitus] 09-10-2019 Chronic Diabetes mellitus without complication (20 sources) Diabetes mellitus; Translations: [Type 2 diabetes mellitus without complications] Onset: 2 Chronic Diabetes mellitus without complication (1 source) Hyperglycemia, unspecified; Translations: [Hyperglycemia, unspecified] Onset: 5 Episodic Diseases of mouth; excluding dental (11 sources) Disorder of lip; Translations: [Diseases of lips] 07-12-2020 Episodic Diseases of white blood cells (18 sources) Leukocytosis; Translations: [Elevated white blood cell count, unspecified] Onset: 2 Chronic Disorders of lipid metabolism (20 sources) Hyperlipidemia; Translations: [Hyperlipidemia, unspecified] Onset: 2 Chronic Essential hypertension (20 sources) Essential hypertension; Translations: [Essential (primary) hypertension] Onset: 2 Chronic Genitourinary symptoms and ill-defined conditions (4 sources) Unspecified urinary incontinence; Translations: [Urinary incontinence] Onset: 2 Chronic Genitourinary symptoms and ill-defined conditions (4 sources) Dysuria; Translations: [Dysuria] Onset: 2 Episodic Headache; including migraine (13 sources) Headache; Translations: [Headache] 09-16-2021 Episodic Hypertension with complications and secondary hypertension (4 sources) Chronic kidney disease due to hypertension; Translations: [Hypertensive chronic kidney disease with stage 1 through stage 4 chronic kidney disease, or unspecified chronic kidney disease] Onset: 5 Chronic Malaise and fatigue (7 sources) Fatigue; Translations: [Other fatigue] Onset: 5 08-30-2019 Episodic Comment on above: Overall deconditione d. I have encouraged her to exercise and join rehab again. Nonspecific chest pain (20 sources) Chest pain; Translations: [Chest pain, unspecified] Onset: 5 08-30-2019 Episodic Comment on above: His chest pain is pl euritic. She denies any recent fever or upper respiratory tract infection. She has a history of lower GI bleed and will be unable to tolerate NSAIDs. I will get an CT scan to make sure that she does not have any infusion. I would started on colchicine which is a second line brought but useful if she can tolerate GI side effects. If her CAT scan shows significant effusion, we will get an echocardiogram in preparation for diagnostic tap. She has a history of smoking in the past but denies any significant weight loss. Nutritional deficiencies (5 sources) Vitamin D deficiency; Translations: [Vitamin D deficiency, unspecified] Onset: 5 07-14-2019 Chronic Other circulatory disease (4 sources) History of acute ST segment elevation myocardial infarction 08-30-2019 Episodic Comment on above: 05/24/2016 echo showed Normal left ventricular size. Left ventricular wall thickness is upper normal with an ejection fraction estimated at 55% to 60%.The septal motion is abnormal and the apex appeared mildly hypokinetic. Small pericardial effusion with fibrinous appearing material.Trace to mild mitral regurgitation.Trace tricuspid regurgitation.Pulmonary pressure estimated at approximately 20 mmHg. Other complications of (4 sources) Antepartum deep vein thrombosis 10-21-2015 Episodic Other gastrointestinal disorders (16 sources) Irritable bowel syndrome; Translations: [Irritable bowel syndrome without diarrhea] Onset: 2 09-20-2021 Chronic Other gastrointestinal disorders (4 sources) Irritable bowel syndrome without diarrhea; Translations: [Irritable bowel syndrome] Chronic Other gastrointestinal disorders (4 sources) Dysphagia 01-21-2020 Episodic Other gastrointestinal disorders (4 sources) History of irritable bowel syndrome 10-21-2015 Episodic Other gastrointestinal disorders (1 source) H/O: gastrointestinal disease; Translations: [Personal history of other diseases of the digestive system] Onset: 2 Episodic Other gastrointestinal disorders (3 sources) History of gastrointestinal bleed 11-24-2021 Episodic Other lower respiratory disease (17 sources) Cough; Translations: [Cough] 03-18-2020 Episodic Other lower respiratory disease (20 sources) Dyspnea; Translations: [Dyspnea, unspecified] 03-18-2020 Episodic Other lower respiratory disease (12 sources) Dyspnea on exertion; Translations: [Dyspnea, unspecified] 08-28-2021 Episodic Other lower respiratory disease (6 sources) Dyspnea, unspecified; Translations: [Other respiratory abnormalities] Episodic Other lower respiratory disease (6 sources) Other forms of dyspnea; Translations: [Other respiratory abnormalities] Onset: 5 Episodic Other lower respiratory disease (2 sources) Abnormal breathing; Translations: [Other abnormalities of breathing] Onset: 2 Episodic Other lower respiratory disease (3 sources) Hypercapnia 11-24-2021 Episodic Other lower respiratory disease (1 source) Shortness of breath; Translations: [Shortness of breath] Onset: 5 Episodic Other nervous system disorders (11 sources) Carpal tunnel syndrome; Translations: [Carpal tunnel syndrome, unspecified upper limb] 03-17-2020 Chronic Other nervous system disorders (4 sources) Polyneuropathy 07-14-2019 Chronic Other nutritional; endocrine; and metabolic disorders (6 sources) Obesity; Translations: [Obesity, unspecified] 08-30-2019 Chronic Comment on above: Diet and exercise. Other nutritional; endocrine; and metabolic disorders (3 sources) Body mass index 40+ - severely obese; Translations: [Body mass index (BMI) 40.0-44.9, adult] Chronic Other nutritional; endocrine; and metabolic disorders (1 source) Obesity, unspecified; Translations: [Obesity, unspecified] Onset: 5 Chronic Other nutritional; endocrine; and metabolic disorders (1 source) Morbid (severe) obesity due to excess calories; Translations: [Morbid (severe) obesity due to excess calories] Onset: 5 Chronic Other nutritional; endocrine; and metabolic disorders (1 source) Body mass index (BMI) 40.0-44.9, adult; Translations: [Body mass index [BMI] 40.0-44.9, adult] Onset: 5 Chronic Other nutritional; endocrine; and metabolic disorders (1 source) H/O: diabetes mellitus; Translations: [Personal history of other endocrine, nutritional and metabolic disease] 09-11-2023 Episodic Other screening for suspected conditions (not mental disorders or infectious disease) (8 sources) Thallium stress test abnormal; Translations: [Abnormal result of other cardiovascular function study] 08-03-2021 Episodic Other upper respiratory infections (11 sources) Viral upper respiratory tract infection; Translations: [Acute upper respiratory infection, unspecified] 04-16-2019 Episodic Phlebitis; thrombophlebitis and thromboembolism (5 sources) History of thromboembolism of vein; Translations: [Personal history of other venous thrombosis and embolism] Onset: 2 Episodic Pleurisy; pneumothorax; pulmonary collapse (4 sources) Pleurisy; Translations: [Pleurisy] 01-29-2022 Episodic Residual codes; unclassified (11 sources) Generalized aches and pains; Translations: [Pain, unspecified] 03-18-2020 Episodic Residual codes; unclassified (4 sources) Noncompliance with treatment 01-21-2020 Episodic Residual codes; unclassified (1 source) Patient encounter status; Translations: [Other specified health status] Onset: 2 Episodic Residual codes; unclassified (1 source) Other specified postprocedural states; Translations: [Other specified postprocedural states] Onset: 5 Episodic Screening and history of mental health and substance abuse codes (3 sources) Tobacco use and exposure - finding 11-24-2021 Chronic Screening and history of mental health and substance abuse codes (5 sources) History of tobacco use; Translations: [H/O: Disorder] Onset: 2 04-09-2016 Episodic Comment on above: quit 12/2015 Shock (15 sources) Cardiogenic shock; Translations: [Cardiogenic shock] 08-30-2019 Episodic Comment on above: 01/03/2016 Pt arrive d in cardiogenic shock with severe proximal LAD 95% stenosis with TORY 1 flow . LAD lesion was balloon dilated to obtain TORY 2 flow prior to IABP placement. IABP was placed from right groin. She remained in shock requiring pressors during the case, proximal LAD was stented and post dilated it with 3.5 x 12mm NC balloon. There is good distal flow and no evidence of dissection. Thyroid disorders (20 sources) Hypothyroidism; Translations: [Hypothyroidism, unspecified] Onset: 2 Chronic Unclassified (1 source) Unknown / UNK(Unknown) Onset: 7 Unclassified (4 sources) Perforated ulcer (morphologic abnormality) 01-08-2014 Unclassified (3 sources) Statin not tolerated (context-dependent category) 11-24-2021 Unclassified (1 source) I25.10 - 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,R07.9 - Chest pain, unspecified,I10 - Essential (primary) hypertension,E78.5 - Hyperlipidemia, unspecified,E03.9 - Hypothyroidism, unspecified,E11.9 - Type 2 diabetes mellitus without complications Urinary tract infections (4 sources) Urinary tract infectious disease 01-03-2016 Episodic Viral infection (20 sources) Disease caused by 2019-nCoV; Translations: [COVID-19] 03-18-2020 Episodic Past or Other Problems Problem Classification Problem Date Documented Date Episodic/Chronic Nutritional deficiencies (1 source) Deficiency of other specified B group vitamins; Translations: [Deficiency of other specified B group vitamins] Onset: 08-05-2023 Episodic Residual codes; unclassified (9 sources) History of cardiac catheterization; Translations: [Other specified postprocedural states] Onset: 08-16-2021 09-05-2021 Episodic Comment on above: LEFT MAIN: distal: s omewhate hazy: 50 - 75 % Stenosis; LEFT ANTERIOR DESCENDING ARTERY: OSTIAL LAD: 50 % Stenosis, PROX LAD: Previously placed stent has an instent difusse: 10 - 25 % restenosis; DIAGONAL 1: Ostial - 50 % Stenosis; CIRCUMFLEX ARTERY: Mild luminal irregularities, MID CIRC: s/p OM1 takeoff: 75 % Stenosis; RIGHT CORONARY ARTERY: Mild luminal irregularities, MID RCA: Previously placed stent is patent; AORTIC ROOT: Angiographically normal; RECOMMENDATIONS: Surgery consult for coronary revascularization per cardiac cath Dr. Jewell 09/05/21 Unclassified (1 source) LT EAR, MOUTH, NECK PAIN Onset: 09-15-2016 Results Test Name Value Interpretation Reference Range Facility Anion gap in Serum or Plasma Ordered By: Harish Noel on 07-16-2024 Anion gap [Moles/Vol] 11 mmol/L 5- [facility] BUN/creatinine ratioOrdered By: Harish Noel on 07-16-2024 Urea nitrogen/Creatinine [Mass ratio] 18.8 mg/mg - [facility] Bilirubin, totalOrdered By: Harish Noel on 07-16-2024 Bilirubin [Mass/Vol] 0.73 mg/dL 0.00-1.30 [facility] Carbon dioxide, total [Moles /volume] in Central venous bloodOrdered By: Harish Noel on 07-16-2024 CO2 [Moles/Vol] 26.7 mmol/L 21.0-32.[address] [facility] Chloride assayOrdered By: Madison Noel on 07-16-2024 Chloride [Moles/Vol] 97 mmol/L Low 98-108 [facility] Comprehensive Metabolic Prof ilon 07-16-2024 Albumin [Mass/Vol] 3.8 g/dL Normal 3.4-4.8 [facility] Comment on above: Performed By: #### L [id number], L501.37761, L500.4050, L501.9520, L503.0106, L501.5200, L506.1001, L506.0400 ####[facility] [address] [place], [address] Albumin/Globulin [Mass ratio] 1.2 {ratio} Normal 0.9-2.[address] [facility] Comment on above: Performed By: #### L 501.9985, L501.68590, L500.4050, L501.9520, L503.0106, L501.5200, L506.1001, L506.0400 ####[facility] [address] [place], [address] ALK PHOS 94 U/L Normal 35-[address] [facility] Comment on above: Performed By: #### L [id number], L501.19481, L500.4050, L501.9520, L503.0106, L501.5200, L506.1001, L506.0400 ####[facility] [address] [place], [address] ALT [Catalytic activity/Vol] 12 U/L Normal <=[address] [facility] Comment on above: Performed By: #### L [id number], L501.01631, L500.4050, L501.9520, L503.0106, L501.5200, L506.1001, L506.0400 ####[facility] [address] [place], [address] AST [Catalytic activity/Vol] 16 U/L Normal <=[address] [facility] Comment on above: Performed By: #### L [id number], L501.83303, L500.4050, L501.9520, L503.0106, L501.5200, L506.1001, L506.0400 ####[facility] [address] [place], [address] Bilirubin [Mass/Vol] 0.73 mg/dL Normal 0.00-1.30 [facility] Comment on above: Performed By: #### L 501.9985, L501.16864, L500.4050, L501.9520, L503.0106, L501.5200, L506.1001, L506.0400 ####[facility] [address] [place], [address] BUN/CRE 18.8 RATIO Normal 10-[address] [facility] Comment on above: Performed By: #### L 501.9985, [id number], L500.4050, L501.9520, L503.0106, L501.5200, L506.1001, L506.0400 ####[facility] [address] [place], [address] Calcium [Mass/Vol] 9.1 mg/dL Normal 7.6-11.0 [facility] Comment on above: Performed By: #### L 501.9985, L501.86324, L500.4050, L501.9520, L503.0106, L501.5200, L506.1001, L506.0400 ####[facility] [address] [place], [address] Chloride [Moles/Vol] 97 mmol/L Low 98-108 [facility] Comment on above: Performed By: #### L 501.9985, L501.65897, L500.4050, L501.9520, L503.0106, L501.5200, L506.1001, L506.0400 ####[facility] [address] [place], [address] CO2 [Moles/Vol] 26.7 mmol/L Normal 21.0-32.[address] [facility] Comment on above: Performed By: #### L 501.9985, L501.59790, L500.4050, L501.9520, L503.0106, L501.5200, L506.1001, L506.0400 ####[facility] [address] [place], [address] Creatinine [Mass/Vol] 0.84 mg/dL Normal 0.70-1.[address] [facility] Comment on above: Performed By: #### L 501.9985, L501.67659, L500.4050, L501.9520, L503.0106, L501.5200, L506.1001, L506.0400 ####[facility] [address] [place], [address] GAP 11 Normal 5-[address] [facility] Comment on above: Performed By: #### L 501.9985, L501.77048, L500.4050, L501.9520, L503.0106, L501.5200, L506.1001, L506.0400 ####[facility] [address] [place], [address] GFR/1.73 sq M.predicted among non-blacks MDRD (S/P/Bld) [Vol rate/Area] 74 mL/min/{1.73_m2} Normal >[address] [facility] Comment on above: Result Comment: mL/m in/1.73m2 CKD-EPI Creatinine Equation (2020) Performed By: #### L 501.9985, L501.41626, L500.4050, L501.9520, L503.0106, L501.5200, L506.1001, L506.0400 ####[facility] [address] [place], [address] Globulin (S) [Mass/Vol] 3.3 g/dL Normal 2.2-4.2 [facility] Comment on above: Performed By: #### L 501.9985, L501.13028, L500.4050, L501.9520, L503.0106, L501.5200, L506.1001, L506.0400 ####[facility] [address] [place], [address] Glucose [Mass/Vol] 253 mg/dL High 70-99 [facility] Comment on above: Performed By: #### L 501.9985, L501.48141, L500.4050, L501.9520, L503.0106, L501.5200, L506.1001, L506.0400 ####[facility] [address] [place], [address] Potassium [Moles/Vol] 4.5 mmol/L Normal 3.3-5.[address] [facility] Comment on above: Performed By: #### L 501.9985, L501.75513, L500.4050, L501.9520, L503.0106, L501.5200, L506.1001, L506.0400 ####[facility] [address] [place], [address] Sodium [Moles/Vol] 134 mmol/L Normal 133-145 [facility] Comment on above: Performed By: #### L 501.9985, L501.38032, L500.4050, L501.9520, L503.0106, L501.5200, L506.1001, L506.0400 ####[facility] [address] [place], [address] T PROT 7.1 g/dL Normal 5.9-8.[address] [facility] Comment on above: Performed By: #### L 501.9985, L501.35696, L500.4050, L501.9520, L503.0106, L501.5200, L506.1001, L506.0400 ####[facility] [address] [place], [place], [id number] Urea nitrogen [Mass/Vol] 16 mg/dL Normal 4-[address] [facility] Comment on above: Performed By: #### L 501.9985, L501.82552, L500.4050, L501.9520, L503.0106, L501.5200, L506.1001, L506.0400 ####[facility] [address] [place], [address] Free T3on 07-16-2024 Free T3 [Mass/Vol] 2.8 pg/mL Normal 2.18-3.98 [facility] Comment on above: Performed By: #### L 501.9985, L501.89135, L500.4050, L501.9520, L503.0106, L501.5200, L506.1001, L506.0400 ####[facility] [address] [place], [place], [id number] Free J4Szuesua By: Harish garza on 07-16-2024 Free Triiodothyronine (T3) pg/dL 2.8 pg/mL 2.18-3.[address] [facility] GFR/1.73 sq M.predicted domenico g non-blacks MDRD (S/P/Bld) [Vol rate/Area]Ordered By: Harish Noel on 07-16-2024 Estimated GFR (MDRD) Non-Af Amer 74 >[address] [facility] Comment on above: mL/min/1.73m2 CKD-EP I Creatinine Equation (2020) Hemoglobin A1con 07-16-2024 HbA1c (Bld) [Mass fraction] 9.6 % High <=5.[address] [facility] Comment on above: Result Comment: Norm al < 5.7 % Prediabetic 5.7 - 6.4 % Diabetic >or= 6.5 % Please note range changes. Performed By: #### L 501.9985, L501.79405, L500.4050, L501.9520, L503.0106, L501.5200, L506.1001, L506.0400 #### [facility] [address] [place], [place], [address] Hemoglobin A1c percentageOrd ered By: Harish Noel on 07-16-2024 HbA1c (Bld) [Mass fraction] 9.6 % High <5.[address] [facility] Comment on above: Normal < 5.7 % Predi abetic 5.7 - 6.4 % Diabetic >or= 6.5 % Please note range changes. Laboratory - Chemistry and C hemistry - challengeOrdered By: Harish Noel on 07-16-2024 AST [Catalytic activity/Vol] 16 U/L <[address] [facility] Magnesiumon 07-16-2024 Magnesium [Mass/Vol] 2.0 mg/dL Normal 1.5-2.2 [facility] Comment on above: Performed By: #### L 501.9985, L501.97202, L500.4050, L501.9520, L503.0106, L501.5200, L506.1001, L506.0400 ####[facility] [address] [place], [place], [id number] Magnesium (Unsp spec) [Mass/ Vol]Ordered By: Harish Noel on 07-16-2024 Magnesium [Mass/Vol] 2.0 mg/dL 1.5-2.2 [facility] Potassium (Unsp spec) [Mass/ Vol]Ordered By: Harish Noel on 07-16-2024 Potassium [Moles/Vol] 4.5 mmol/L 3.3-5.[address] [facility] Serum creatinine measurement (mass/volume)Ordered By: Harish Noel on 07-16-2024 Creatinine [Mass/Vol] 0.84 mg/dL 0.70-1.[address] [facility] Serum globulin measurementOr dered By: Harish Noel on 07-16-2024 Globulin (S) [Mass/Vol] 3.3 g/dL 2.2-4.2 [facility] Serum glucose measurement (m ass/volume)Ordered By: Harish Noel on 07-16-2024 Glucose [Mass/Vol] 253 mg/dL High 70-99 [facility] Serum or plasma alanine nova otransferase (ALT) measurementOrdered By: Harish Noel on 07-16-2024 ALT [Catalytic activity/Vol] 12 U/L <[address] [facility] Serum or plasma albumin betsy urement (mass/volume)Ordered By: Harish Noel on 07-16-2024 Albumin [Mass/Vol] 3.8 g/dL 3.4-4.8 [facility] Serum or plasma albumin/glob ulin mass ratioOrdered By: Harish Noel on 07-16-2024 Albumin/Globulin [Mass ratio] 1.2 {ratio} 0.9-2.[address] [facility] Serum or plasma alkaline maritza sphatase measurementOrdered By: Harish Noel on 07-16-2024 ALP [Catalytic activity/Vol] 94 U/L 35-[address] [facility] Serum or plasma calcium betsy urement (mass/volume)Ordered By: Harish Noel on 07-16-2024 Calcium [Mass/Vol] 9.1 mg/dL 7.6-11.0 [facility] Serum or plasma urea nitroge n measurement (mass/volume)Ordered By: Harish Noel on 07-16-2024 Urea nitrogen [Mass/Vol] 16 mg/dL 4-[address] [facility] Sodium levelOrdered By: Ida Noel on 07-16-2024 Sodium [Moles/Vol] 134 mmol/L 133-145 [facility] T4 Free Directon 07-16-2024 T4 FREE DIRECT 0.90 ng/dL Normal 0.76-1.[address] [facility] Comment on above: Performed By: #### L 501.9941, L501.79173, L500.4050, L501.9520, L503.0106, L501.5200, L506.1001, L506.0400 ####[facility] [address] [place], [address] T4 freeOrdered By: Harish garza on 07-16-2024 Free T4 [Mass/Vol] 0.90 ng/dL 0.76-1.46 [facility] TSH DL <= 0.005 mIU/L QnOrde red By: Harish Noel on 07-16-2024 Thyroid Stimulating Hormone (TSH) 8.170 uIU/mL High 0.300-4.[address] [facility] Thyroid Stim Hormone (TSH)on 07-16-2024 TSH 8.170 uIU/mL High 0.300-4.[address] [facility] Comment on above: Performed By: #### L 501.9985, L501.84635, L500.4050, L501.9520, L503.0106, L501.5200, L506.1001, L506.0400 ####[facility] [address] [place], [place], [id number] Total proteinOrdered By: Sharon Noel on 07-16-2024 Protein [Mass/Vol] 7.1 g/dL 5.9-8.4 [facility] Vitamin B12on 07-16-2024 Cobalamin (Vitamin B12) [Mass/Vol] 193 pg/mL Normal 180-[address] [facility] Comment on above: Performed By: #### L 501.9985, L501.53782, L500.4050, L501.9520, L503.0106, L501.5200, L506.1001, L506.0400 ####[facility] [address] [place], [place], [id number] Vitamin B12 ser/plasOrdered By: Harish Noel on 07-16-2024 Cobalamin (Vitamin B12) [Mass/Vol] 193 pg/mL 180-[address] [facility] Vitamin D, 25-hydroxyOrdered By: Harish oNel on 07-16-2024 Vitamin D 25-Hydroxy 12.9 ng/mL Low 30-100 [facility] Comment on above: Vitamin D StatusDefi ciency: <20 ng/mL (50nmol/L)Insufficiency: 20-30 ng/mL (50-75 nmol/L)Sufficiency: 30-100 ng/mL (75-250 nmol/L)Toxicity: >100 ng/mL (>250 nmol/L) Vitamin D,25 Hydroxyon 07-16 Vitamin D 25-OH 12.9 ng/mL Low 30-[address] [facility] Comment on above: Result Comment: Lucy min D Status Deficiency: <20 ng/mL (50nmol/L) Insufficiency: 20-30 ng/mL (50-75 nmol/L) Sufficiency: 30-100 ng/mL (75-250 nmol/L) Toxicity: >100 ng/mL (>250 nmol/L) Performed By: #### L 501.9985, L501.18176, L500.4050, L501.9520, L503.0106, L501.5200, L506.1001, L506.0400 ####[facility] [address] [place], [address] MR/BMSLIBORIOBon 07-02-2024 MR/BMS.[facility] [address] [place] [address] OFFICE VISIT Date of Service: 07/02/24 MR#: [id number] Acct: [id number] Name: FELICITAS ALCANTARA Rep #: [id number] : 1950 Provider: Dr. 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 Accompanied by: Self Is patient in pain?: Yes (right shoulder and upper arm) Pain scale (1-10): 6 Allergies alogliptin Allergy (Verified 07/02/24 12:57) Hives dulaglutide (From Trulicity) Allergy (Verified 07/02/24 12:57) Hives glipizide Allergy (Verified 07/02/24 12:57) Hives metformin Allergy (Verified 07/02/24 12:57) Hives Penicillins (PCN) Allergy (Verified 07/02/24 12:57) Hives aspirin Adverse Reaction (Severe, Verified 07/02/24 12:57) blood clots canagliflozin (From Invokana) Adverse Reaction (Severe, Verified 07/02/24 12:57) abdominal pain Medications ???Medication ???Instructions ???Recorded ???Confirmed ???Type levothyroxine 112 mcg tablet 112 mcg PO DAILY thyroid #90 tabs 01/16/24 07/02/24 Rx blood-glucose sensor (Dexcom G7 #1 ea 01/20/24 04/29/24 Rx Sensor device) carvedilol 25 mg tablet 25 mg PO BID blood pressure #60 07/02/24 Rx tabs insulin NPH-regular 70-30 U-100 See Rx Instructions subcut 5 07/02/24 Rx insulin 100 unit/mL subcutaneous .COMPLEX #15 mL pen (Novolin 70-30 FlexPen U-100 Insulin) Have you fallen in the past year?: No PFSH Medical History Morbid obesity with BMI of 40.0-44.9, adult History of left heart catheterization (LHC) ( 09/05/21) Abnormal nuclear stress test Dyspnea on exertion Mass of lip Elevated WBC count History of DVT (deep vein thrombosis) Presence of stent in coronary artery ( 04/10/16) History of non-ST elevation myocardial infarction (NSTEMI) Cardiogenic shock Type 2 diabetes mellitus 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 Essential hypertension Carpal tunnel syndrome Hyperlipemia Hypertension Hypothyroidism History of pneumonia IBS (irritable bowel syndrome) Diabetes Surgical History Hx of heart bypass surgery History of coronary artery bypass surgery ( 11/23/21) History of excision of mass ( 07/2020) Presence of coronary angioplasty implant and graft ( 04/10/16) History of tubal ligation History of hysterectomy History of tonsillectomy Family History Sister Breast cancer Mother Hypertension Heart disease Myocardial infarction, Onset Age: 61 Thyroid disorder Grandmother Arthritis Seizures Father CVA (cerebral vascular accident) Brother Heart disease Myocardial infarction Sister CAD (coronary artery disease) Social History household members: none Smoking Status: Former smoker how long ago did patient quit smokin12/2015 alcohol intake: never substance use type: does not use caffeine: Yes Type: coffee Number of servings: 1 frequency: 1-2 times per week HPI HPI Details: FELICITAS ALCANTARA is a 73 F who presents to the office today for hospital follow-up. About 5 or 6 weeks ago, she was in the emergency room, and admitted for chest pain, elevated blood pressures. She is on carvedilol 25 mg p.o. twice daily, insulin for type 2 diabetes, Novolin 70/30 regimen. Hypothyroidism on levothyroxine. She was admitted for chest pain evaluation. Seems somewhat to be exertional related. Pain resolved in the hospital. Blood pressures remained elevated but did come down ultimately. Her usual home blood pressures tend to run 135-140 systolic over 80 or less. Blood sugars have not been adequately controlled. She is on a Novolin 70/30 regimen initially started by endocrinology in [place]. She is intolerant to 5 major classes of oral medications as per the chart. This was the ultimate determination of endocrinology to use this regimen. She has remained on this. We have made a little adjustments over the last few years but generally speaking this has been a stable regimen. She is not willing to increase the amount or frequency of testing that would be required to safely manage a split regimen of insulin which I think would ultimately bring better control but again she is not willing to do more test (more content not included)... Normal [facility] 12 Lead EKGon 04-30-2024 12 Lead EKG [facility] [address] [place] [address] 12 Lead EKG 04/29/24 2256 MR#: [id number] Acct: [id number] Name: FELICITAS ALCANTARA Rep #: [id number] : 1950 73 From: Delgado Cruz MD Attending Dr: Dr. Nathan Torres, DO Status: DIS RUBINA Ordering Dr: Polly Lomeli DO Date: 04/30/24 Location: [facility] Sex: F C Admitted: 04/29/24 Test Reason : CP ADMISSION Blood Pressure : */* mmHG Vent. Rate : 86 BPM Atrial Rate : 86 BPM P-R Int : 156 ms QRS Dur : 130 ms QT Int : 440 ms P-R-T Axes : 50 -21 49 degrees QTcB Int : 526 ms Normal sinus rhythm Right bundle branch block Abnormal ECG When compared with ECG of 29-Apr-2024 15:56, MANUAL COMPARISON REQUIRED DATA IS UNCONFIRMED Confirmed by ANTHONY MCARTHUR, ADELA ([id number]), editor sound ALLA LAINEZ ([id number]) on 05/01/2024 1:04:57 PM Referred By: Sly Blanco Confirmed By: ADELA CRUZ MD 05/01/24 1304 Date Delgado Cruz MD CC: Dr. Polly Lomeli DO; Dr. Nathan Torres DO; Dr. Harish Noel MD; Dr. Sly Blanco DO Signed Normal [facility] Absolute neutrophil countOrd ered By: Polly Herr on 04-30-2024 Neutrophils (Bld) [#/Vol] 16.1 10*3/uL High 2.0-7.[address] [facility] Albumin to globulin ratioOrd ered By: Polly Herr on 04-30-2024 Albumin/Globulin [Mass ratio] 0.8 {ratio} Low 0.9-2.[address] [facility] Automated blood erythrocyte countOrdered By: Polly Herr on 04-30-2024 RBC (Bld) [#/Vol] 5.60 10*6/uL High 4.2-5.4 [facility] Comment on above: Performed By: #### L 501.5200, L501.2300, L500.4050, L100.0100 ####[facility] [address] [place], [place], [address] Automated blood hematocrit ( percentage)Ordered By: Polly Herr on 04-30-2024 Hematocrit (Bld) [Volume fraction] 49.8 % High 37-[address] [facility] Comment on above: Performed By: #### L 501.5200, L501.2300, L500.4050, L100.0100 ####[facility] [address] [place], [address] Automated lymphocyte count a s percentage of total leukocytesOrdered By: Polly Herr on 04-30-2024 Lymphocytes/100 WBC (Bld) 7.1 % Low 19-[address] [facility] Comment on above: Performed By: #### L 501.5200, L501.2300, L500.4050, L100.0100 ####[facility] [address] [place], [address] Basophil percentageOrdered B y: Polly Herr on 04-30-2024 Basophils/100 WBC (Bld) 0.6 % Normal 0-1 [facility] Comment on above: Performed By: #### L 501.5200, L501.2300, L500.4050, L100.0100 ####[facility] [address] [place], [address] Bedside Glucoseon 04-30-2024 FINGERSTICK GLU 307 mg/dL High 74-[address] [facility] Comment on above: Result Comment: RIMMA GEMENT OF PATIENT CARE PER NURSING PROTOCOL Performed By: #### L 100.0100, L500.2500, L300.8000, L501.4020 #### [facility] [address] [place], [address] FINGERSTICK GLU 399 mg/dL High 74-[address] [facility] Comment on above: Result Comment: RIMMA GEMENT OF PATIENT CARE PER NURSING PROTOCOL Performed By: #### L 501.080 ####[facility] [address] [place], [address] FINGERSTICK GLU 404 mg/dL High 74-[address] [facility] Comment on above: Result Comment: RIMMA GEMENT OF PATIENT CARE PER NURSING PROTOCOL Performed By: #### L 100.0100, L500.2500, L300.8000, L501.4020 #### [facility] [address] [place], [address] FINGERSTICK GLU 365 mg/dL High 74-[address] [facility] Comment on above: Result Comment: RIMMA GEMENT OF PATIENT CARE PER NURSING PROTOCOL Performed By: #### L 100.0100, L500.2500, L300.8000, L501.4020 #### [facility] [address] [place], [address] FINGERSTICK GLU 245 mg/dL High 74-[address] [facility] Comment on above: Result Comment: RIMMA GEMENT OF PATIENT CARE PER NURSING PROTOCOL Performed By: #### L 100.0100, L500.2500, L300.8000, L501.4020 #### [facility] [address] [place], [address] Bilirubin, totalOrdered By: Polly Herr on 04-30-2024 Bilirubin [Mass/Vol] 1.10 mg/dL High 0.20-1.00 [facility] Comment on above: For patients on eltr ombopag therapy, use of Dimension Bledsoe TBIL is not recommended. Blood urea nitrogen (BUN)/cr eatinine ratioOrdered By: Polly Herr on 04-30-2024 Urea nitrogen/Creatinine [Mass ratio] 17.6 mg/mg 10-[address] [facility] CBC W/Diff, Automatedon 04-18 Absolute Lymph 1.26 X10 3/uL Normal 0.83-4.[address] [facility] Comment on above: Performed By: #### L 501.5200, L501.2300, L500.4050, L100.0100 ####[facility] [address] [place], [address] Absolute Neut 16.1 X10 3/uL High 2.0-7.[address] [facility] Comment on above: Performed By: #### L 501.5200, L501.2300, L500.4050, L100.0100 ####[facility] [address] [place], [address] IG% 1.200 High 0.0-0.[address] [facility] Comment on above: Result Comment: IG% - Immature Granulocytes (promyelocytes, myelocytes and metamyelocytes) > 1% indicates that a LEFT SHIFT is Present. Performed By: #### L 501.5200, L501.2300, L500.4050, L100.0100 ####[facility] [address] [place], [address] Nucleated RBC (Bld) [#/Vol] 0 10*3/uL Normal 0-[address] [facility] Comment on above: Performed By: #### L 501.5200, L501.2300, L500.4050, L100.0100 ####[facility] [address] [place], [address] RDW SD 43.2 fl Normal 35.1-43.[address] [facility] Comment on above: Performed By: #### L 501.5200, L501.2300, L500.4050, L100.0100 ####[facility] [address] [place], [address] Carbon dioxide measurementOr dered By: Polly Herr on 04-30-2024 CO2 [Moles/Vol] 25.0 mmol/L 21.0-32.[address] [facility] Chloride measurementOrdered By: Polly Herr on 04-30-2024 Chloride [Moles/Vol] 100 mmol/L 98-107 [facility] Comprehensive Metabolic Prof ilon 04-30-2024 Albumin [Mass/Vol] 3.8 g/dL Normal 3.2-5.0 [facility] Comment on above: Performed By: #### L 501.5200, L501.2300, L500.4050, L100.0100 ####[facility] [address] [place], [address] Albumin/Globulin [Mass ratio] 0.8 {ratio} Low 0.9-2.[address] [facility] Comment on above: Performed By: #### L 501.5200, L501.2300, L500.4050, L100.0100 ####[facility] [address] [place], [address] ALK P 116 U/L Normal 45-[address] [facility] Comment on above: Performed By: #### L 501.5200, L501.2300, L500.4050, L100.0100 ####[facility] [address] [place], [address] ALT [Catalytic activity/Vol] 19 U/L Normal 13-[address] [facility] Comment on above: Performed By: #### L 501.5200, L501.2300, L500.4050, L100.0100 ####[facility] [address] [place], [address] AST [Catalytic activity/Vol] 15 U/L Normal 15-[address] [facility] Comment on above: Performed By: #### L 501.5200, L501.2300, L500.4050, L100.0100 ####[facility] [address] [place], [address] Bilirubin [Mass/Vol] 1.10 mg/dL High 0.20-1.00 [facility] Comment on above: Result Comment: For patients on eltrombopag therapy, use of Dimension Bledsoe TBIL is not recommended. Performed By: #### L 501.5200, L501.2300, L500.4050, L100.0100 ####[facility] [address] [place], [address] BUN/CRE 17.6 RATIO Normal 10-[address] [facility] Comment on above: Performed By: #### L 501.5200, L501.2300, L500.4050, L100.0100 ####[facility] [address] [place], [address] CA,Total 10.4 mg/dL High 8.5-10.[address] [facility] Comment on above: Performed By: #### L 501.5200, L501.2300, L500.4050, L100.0100 ####[facility] [address] [place], [address] Chloride [Moles/Vol] 100 mmol/L Normal 98-107 [facility] Comment on above: Performed By: #### L 501.5200, L501.2300, L500.4050, L100.0100 ####[facility] [address] [place], [address] CO2 [Moles/Vol] 25.0 mmol/L Normal 21.0-32.[address] [facility] Comment on above: Performed By: #### L 501.5200, L501.2300, L500.4050, L100.0100 ####[facility] [address] [place], [address] Creatinine [Mass/Vol] 1.08 mg/dL High 0.55-1.[address] [facility] Comment on above: Result Comment: The validity of the calculated GFR GFRAA in patients over 70 years has not been determined. Clinical correlation is essential. Performed By: #### L 501.5200, L501.2300, L500.4050, L100.0100 ####[facility] [address] [place], [address] ECRCL 52.31 ml/min Normal [facility] Comment on above: Performed By: #### L 501.5200, L501.2300, L500.4050, L100.0100 ####[facility] [address] [place], [address] EST GFR - AA 64 mL/min Normal >[address] [facility] Comment on above: Result Comment: Afri can Jamaican GFR Calc Performed By: #### L 501.5200, L501.2300, L500.4050, L100.0100 ####[facility] [address] [place], [address] GAP 13 Normal 5-[address] [facility] Comment on above: Performed By: #### L 501.5200, L501.2300, L500.4050, L100.0100 ####[facility] [address] [place], [address] GFR/1.73 sq M.predicted among non-blacks MDRD (S/P/Bld) [Vol rate/Area] 53 mL/min/{1.73_m2} Low >[address] [facility] Comment on above: Result Comment: Non- GFR Calc Performed By: #### L 501.5200, L501.2300, L500.4050, L100.0100 ####[facility] [address] [place], [address] Globulin (S) [Mass/Vol] 4.6 g/dL High 2.2-4.2 [facility] Comment on above: Performed By: #### L 501.5200, L501.2300, L500.4050, L100.0100 ####[facility] [address] [place], [address] Glucose [Mass/Vol] 352 mg/dL High 74-106 [facility] Comment on above: Result Comment: Gluc ose result greater than or equal to 200 mg/dL suggests DIABETES MELLITUS per A.D.A. criteria. Performed By: #### L 501.5200, L501.2300, L500.4050, L100.0100 ####[facility] [address] [place], [address] Potassium [Moles/Vol] 4.4 mmol/L Normal 3.5-5.[address] [facility] Comment on above: Performed By: #### L 501.5200, L501.2300, L500.4050, L100.0100 ####[facility] [address] [place], [address] Sodium [Moles/Vol] 137 mmol/L Normal 136-145 [facility] Comment on above: Performed By: #### L 501.5200, L501.2300, L500.4050, L100.0100 ####[facility] [address] [place], [address] T PROT 8.4 g/dL High 6.4-8.[address] [facility] Comment on above: Performed By: #### L 501.5200, L501.2300, L500.4050, L100.0100 ####[facility] [address] [place], [address] Urea nitrogen [Mass/Vol] 19 mg/dL High 7-[address] [facility] Comment on above: Performed By: #### L 501.5200, L501.2300, L500.4050, L100.0100 ####[facility] [address] [place], [address] Eosinophil percentageOrdered By: Polly Herr on 04-30-2024 Eosinophils/100 WBC (Bld) 0.0 % Normal 0-[address] [facility] Comment on above: Performed By: #### L 501.5200, L501.2300, L500.4050, L100.0100 ####[facility] [address] [place], [address] Erythrocyte distribution wid th (RBC) [Ratio]Ordered By: Polly Herr on 04-30-2024 Erythrocyte distribution width (RBC) [Entitic vol] 43.2 fL 35.1-43.[address] [facility] Erythrocyte distribution wid th ratioOrdered By: Polly Herr on 04-30-2024 Erythrocyte distribution width (RBC) [Ratio] 13.3 % Normal 11.6-14.[address] [facility] Comment on above: Performed By: #### L 501.5200, L501.2300, L500.4050, L100.0100 ####[facility] [address] [place], [place], [id number] Estimated glomerular filtrat ion rate (GFR) AmericanOrdered By: Polly Herr on 04-30-2024 Estimated GFR (MDRD) Amer 64 mL/min >[address] [facility] Comment on above: GFR Calc Estimation of creatinine keo aranceOrdered By: Polly Herr on 04-30-2024 Estimated Creatinine Clearance Calc 52.31 ml/min [facility] Glomerular filtration rate ( GFR) estimationOrdered By: Polly Herr on 04-30-2024 Estimated GFR (MDRD) Non-Af Amer 53 mL/min Low >[address] [facility] Comment on above: Non- GFR Calc Glucose measurementOrdered B y: Polly Herr on 04-30-2024 Glucose [Mass/Vol] 352 mg/dL [address] [facility] Comment on above: Glucose result great er than or equal to 200 mg/dLsuggests DIABETES MELLITUS per A.D.A. criteria. [facility] deOrdered By: Nathan Torres on 04-30-2024 Bedside Glucose (Misc Panel) 307 mg/dL [address] Comment on above: MANAGEMENT OF PATIEN T CARE PER NURSING PROTOCOL Hemoglobin measurementOrdere d By: Polly Herr on 04-30-2024 Hemoglobin (Bld) [Mass/Vol] 16.3 g/dL [facility] 12.0-15.[address] [facility] Comment on above: Performed By: #### L 501.5200, L501.2300, L500.4050, L100.0100 ####[facility] [address] [place], [place], [id number] Immature granulocytes/100 WB C Auto (Bld)Ordered By: Polly Herr on 04-30-2024 Immature granulocytes/100 WBC (Bld) 1.200 % High 0.0-0.[address] [facility] Comment on above: IG% - Immature Granu locytes (promyelocytes, myelocytes and metamyelocytes) > 1% indicates that a LEFT SHIFT is Present. Laboratory - Chemistry and C hemistry - challengeOrdered By: Polly Herr on 04-30-2024 AST [Catalytic activity/Vol] 15 U/L 15-[address] [facility] Lymphocytes Auto (Unsp spec) [#/Vol]Ordered By: Polly Herr on 04-30-2024 Lymphocytes (Bld) [#/Vol] 1.26 10*3/uL 0.83-4.[address] [facility] MCV (mean corpuscular volume ) determinationOrdered By: Polly Herr on 04-30-2024 MCV (RBC) [Entitic vol] 88.9 fL Normal 81-99 [facility] Comment on above: Performed By: #### L 501.5200, L501.2300, L500.4050, L100.0100 ####[facility] [address] [place], [address] Magnesiumon 04-30-2024 Magnesium [Mass/Vol] 2.1 mg/dL Normal 1.6-2.6 [facility] Comment on above: Performed By: #### L 501.5200, L501.2300, L500.4050, L100.0100 ####[facility] [address] [place], [address] Magnesium measurementOrdered By: Polly Herr on 04-30-2024 Magnesium [Mass/Vol] 2.1 mg/dL 1.6-2.6 [facility] Mean corpuscular hemoglobin (MCH) determinationOrdered By: Polly Herr on 04-30-2024 MCH (RBC) [Entitic mass] 29.1 pg Normal 27.0-32.[address] [facility] Comment on above: Performed By: #### L 501.5200, L501.2300, L500.4050, L100.0100 ####[facility] [address] [place], [address] Mean corpuscular hemoglobin concentration (MCHC) determinationOrdered By: Polly Herr on 04-30-2024 MCHC (RBC) [Mass/Vol] 32.7 g/dL Normal 32-[address] [facility] Comment on above: Performed By: #### L 501.5200, L501.2300, L500.4050, L100.0100 ####[facility] [address] [place], [address] Mean platelet volume determi nationOrdered By: Polly Herr on 04-30-2024 Platelet mean volume (Bld) [Entitic vol] 10.6 fL Normal 6.2-12.[address] [facility] Comment on above: Performed By: #### L 501.5200, L501.2300, L500.4050, L100.0100 ####[facility] [address] [place], [address] Monocyte percentageOrdered B y: Polly Herr on 04-30-2024 Monocytes/100 WBC (Bld) 0.5 % Normal 0-10 [facility] Comment on above: Performed By: #### L 501.5200, L501.2300, L500.4050, L100.0100 ####[facility] [address] [place], [address] Neutrophil percentageOrdered By: Polly Herr on 04-30-2024 Neutrophils/100 WBC (Bld) 90.6 % High 47-[address] [facility] Comment on above: Performed By: #### L 501.5200, L501.2300, L500.4050, L100.0100 ####[facility] [address] [place], [address] Nucleated red blood cell per centageOrdered By: Polly Herr on 04-30-2024 Nucleated RBC/100 WBC (Bld) [Ratio] 0 % 0-[address] [facility] Phosphoruson 04-30-2024 Phosphate [Mass/Vol] 3.7 mg/dL Normal 2.5-4.9 [facility] Comment on above: Performed By: #### L 501.5200, L501.2300, L500.4050, L100.0100 ####[facility] [address] [place], [address] Phosphorus measurementOrdere d By: Polyl Herr on 04-30-2024 Phosphorus Level 3.7 mg/dL 2.5-4.[address] [facility] Platelet countOrdered By: Mane Herr on 04-30-2024 Platelets (Bld) [#/Vol] 328 10*3/uL Normal 150-[address] [facility] Comment on above: Performed By: #### L 501.5200, L501.2300, L500.4050, L100.0100 ####[facility] [address] [place], [address] Potassium measurementOrdered By: Polly Herr on 04-30-2024 Potassium [Moles/Vol] 4.4 mmol/L 3.5-5.[address] [facility] Serum anion gap measurementO rdered By: Polly Herr on 04-30-2024 Anion gap [Moles/Vol] 13 mmol/L 5-[address] [facility] Serum globulin measurementOr dered By: Polly Herr on 04-30-2024 Globulin (S) [Mass/Vol] 4.6 g/dL High 2.2-4.2 [facility] Serum or plasma alanine nova otransferase (ALT) measurementOrdered By: Polly Herr on 04-30-2024 ALT [Catalytic activity/Vol] 19 U/L 13-[address] [facility] Serum or plasma albumin betsy urement (mass/volume)Ordered By: Polly Herr on 04-30-2024 Albumin [Mass/Vol] 3.8 g/dL 3.2-5.0 [facility] Serum or plasma alkaline maritza sphatase measurementOrdered By: Polly Herr on 04-30-2024 ALP [Catalytic activity/Vol] 116 U/L 45-[address] [facility] Serum or plasma calcium betsy urement (mass/volume)Ordered By: Polly Herr on 04-30-2024 Calcium [Mass/Vol] 10.4 mg/dL High 8.5-10.1 [facility] Serum or plasma creatinine m easurement (mass/volume)Ordered By: Polly Herr on 04-30-2024 Creatinine [Mass/Vol] 1.08 mg/dL High 0.55-1.[address] [facility] Comment on above: The validity of the calculated GFR & GFRAA in patients over 70 years has not been determined. Clinical correlation is essential. Serum or plasma urea nitroge n measurement (mass/volume)Ordered By: Polly Herr on 04-30-2024 Urea nitrogen [Mass/Vol] 19 mg/dL High 7-[address] [facility] Sodium levelOrdered By: Neto Herr on 04-30-2024 Sodium [Moles/Vol] 137 mmol/L 136-145 [facility] Stress Reporton 04-30-2024 Stress Report [facility] [address] [place] [id number] MR#: [id number] Acct: [id number] Name: FELICITAS ALCANTARA Rep #: [id number] : 1950 73 From: Delgado Cruz MD Primary Care: Dr. Harish Noel MD Status: ADM RUBINA Referring Dr: Sly Blanco DO Sex: F C Stress Test Report Date: 04/30/2024 Procedure: Pharmacologic stress nuclear imaging study Indications: Chest pain Consent: Per the patient Procedure: The patient underwent pharmacologic (Regadenoson) evaluation with a peak heart rate of 109 beats per minute (73%predicted maximal heart rate) and a peak blood pressure of 152/84 mmHg. The baseline ECG demonstrated normal sinus rhythm, right bundle branch block. EKG during lexiscan infusion revealed no significant ischemic changes. EKG post infusion revealed no significant ischemic changes [There were no cardiac dysrhythmias pretest, during pharmacologic infusion, or recovery]. Patient had minimal chest discomfort with Lexiscan infusion which is likely a nonspecific response. The examination was discontinued secondary to completion of protocol. Impression: 1. Lexiscan stress test test is negative for Lexiscan infusion induced EKG changes of ischemia. 2. Patient had mild chest discomfort with Lexiscan infusion which is likely a nonspecific response 3. Results of the nuclear portion of the test is as below Myocardial perfusion imaging study: Technique: The patient was injected with 15 millicuries of technetium 99m Cardiolite and subsequently rest SPECT Cardiolite nuclear imaging was obtained in the horizontal long, vertical long, and short axis views. The patient underwent pharmacologic [Regadenoson 0.4mg] evaluation. Please see above for details. The patient was injected with 45 millicuries of technetium 99m Cardiolite and subsequently stress SPECT Cardiolite nuclear imaging was obtained in the horizontal long, vertical long, and short axis views. A gated Cardiolite study at peak stress was obtained. Interpretation: Rest and stress SPECT Cardiolite nuclear imaging status post realignment, normalization, and attenuation correction demonstrate severely decreased to absent radioisotope uptake in the apex on both the rest and stress images suggestive of prior apical myocardial infarction. There is no evidence of significant reversibility suggestive of ischemia. Gated images reveal mild hypokinesis of the inferior apical wall. The reported LVEF is greater than 70%. Impression: 1. There is no evidence of significant ischemia. Evidence of prior apical myocardial infarction. 2. Estimated ejection fraction is greater than 70%. This note was generated with GenerationOne[employer] software. It may contain incorrect words, spelling, and punctuation that were not noted in checking the note before signing. 04/30/24 1151 Date Delgado Cruz MD CC: Dr. Polly Lomeli DO; Dr. Nathan Torres DO; Dr. Harish Noel MD; Dr. Sly Blanco DO Date Dictated: 04/30/24 1146 Date Transcribed: 04/30/24 1146 Residential Team Leader: NN Signed Normal [facility] Total proteinOrdered By: Frank Herr on 04-30-2024 Protein [Mass/Vol] 8.4 g/dL High 6.4-8.2 [facility] White blood cell (WBC) count Ordered By: Polly Herr on 04-30-2024 WBC (Bld) [#/Vol] 17.7 10*3/uL High 4.4-11.0 [facility] Comment on above: Performed By: #### L 501.5200, L501.2300, L500.4050, L100.0100 ####[facility] [address] [place], [address] 12 Lead EKGon 04-29-2024 12 Lead EKG [facility] [address] [place] [address] 12 Lead EKG 04/30/24 0528 MR#: [id number] Acct: [id number] Name: FELICITAS ALCANTARA Rep #: [id number] : 1950 73 From: Delgado Cruz MD Attending Dr: Dr. Nathan Torres DO Status: DIS RUBINA Ordering Dr: Polly Lomeli DO Date: 04/29/24 Location: [facility] Sex: F C Admitted: 04/29/24 Test Reason : AM EKG Blood Pressure : */* mmHG Vent. Rate : 93 BPM Atrial Rate : 93 BPM P-R Int : 158 ms QRS Dur : 130 ms QT Int : 432 ms P-R-T Axes : 59 -24 62 degrees QTcB Int : 537 ms Normal sinus rhythm Right bundle branch block Abnormal ECG Confirmed by ANTHONY MCARTHUR, ADELA ([id number]), editor sound ALLA LAINEZ ([id number]) on 05/01/2024 1:04:01 PM Referred By: Sly Blanco Confirmed By: ADELA CRUZ MD 05/01/24 2991 Date Delgado Cruz MD CC: Dr. Polly Lomeli DO; Dr. Nathan Torres DO; Dr. Harish Noel MD; Dr. Sly Blanco DO Signed Normal [facility] 12 Lead EKG [facility] [address] [place] [address] 12 Lead EKG 04/29/24 1556 MR#: [id number] Acct: [id number] Name: FELICITAS ALCANTARA Rep #: [id number] : 1950 73 From: Delgado Cruz MD Attending Dr: Dr. Nathan Torres DO Status: DIS RUBINA Ordering Dr: Sly Blanco DO Date: 04/29/24 Location: U Sex: F C Admitted: 04/29/24 Test Reason : sob Blood Pressure : */* mmHG Vent. Rate : 66 BPM Atrial Rate : 66 BPM P-R Int : 166 ms QRS Dur : 132 ms QT Int : 466 ms P-R-T Axes : 44 -2 43 degrees QTcB Int : 488 ms Normal sinus rhythm Right bundle branch block Abnormal ECG Confirmed by ANTHONY MCARTHUR, ADELA ([id number]), editor sound ALLA LAINEZ ([id number]) on 05/01/2024 1:00:07 PM Referred By: Sly Blanco Confirmed By: ADELA CRUZ MD 05/01/24 1300 Date Delgado Cruz MD CC: Dr. Nathan Torres DO; Dr. Harish Noel MD; Dr. Sly Blanco DO Signed Normal [facility] Arterial patency Wrist arter y --pre arterial punctureOrdered By: Polly Herr on 04-29-2024 Wagner Test Positive [facility] BNP (brain natriuretic pepti de measurement)Ordered By: Sly Blanco on 04-29-2024 Natriuretic peptide B (Bld) [Mass/Vol] 161.4 pg/mL High 0-[address] [facility] BNP,B-Type NATRIURETIC PEPTI Yahaira 04-29-2024 Natriuretic peptide B (Bld) [Mass/Vol] 161.4 pg/mL High 0-[address] [facility] Comment on above: Performed By: #### L 100.0100, L500.2500, L300.8000, L501.4020 #### [facility] Laboratory [address] [place], [address] Base excess Calc (BldV) [Mol es/Vol]Ordered By: Polly Herr on 04-29-2024 Blood Gas Base Excess 4 mmol/L High -2-[address] [facility] Basic Metabolic Profile (BMP )on 04-29-2024 BUN/CRE 18.2 RATIO Normal 10-[address] [facility] Comment on above: Performed By: #### L 100.0100, L500.2500, L300.8000, L501.4020 #### [facility] [address] [place], [address] CA,Total 9.6 mg/dL Normal 8.5-10.[address] [facility] Comment on above: Performed By: #### L 100.0100, L500.2500, L300.8000, L501.4020 #### [facility] [address] [place], [address] Chloride [Moles/Vol] 101 mmol/L Normal 98-107 [facility] Comment on above: Performed By: #### L 100.0100, L500.2500, L300.8000, L501.4020 #### [facility] [address] [place], [address] CO2 [Moles/Vol] 26.0 mmol/L Normal 21.0-32.[address] [facility] Comment on above: Performed By: #### L 100.0100, L500.2500, L300.8000, L501.4020 #### [facility] [address] [place], [address] Creatinine [Mass/Vol] 0.82 mg/dL Normal 0.55-1.[address] [facility] Comment on above: Result Comment: The validity of the calculated GFR GFRAA in patients over 70 years has not been determined. Clinical correlation is essential. Performed By: #### L 100.0100, L500.2500, L300.8000, L501.4020 #### [facility] [address] [place], [address] ECRCL 70.51 ml/min Normal [facility] Comment on above: Performed By: #### L 100.0100, L500.2500, L300.8000, L501.4020 #### [facility] [address] [place], [address] EST GFR - AA 88 mL/min Normal >[address] [facility] Comment on above: Result Comment: Afri can Jamaican GFR Calc Performed By: #### L 100.0100, L500.2500, L300.8000, L501.4020 #### [facility] [address] [place], [address] GAP 9 Normal 5-[address] [facility] Comment on above: Performed By: #### L 100.0100, L500.2500, L300.8000, L501.4020 #### [facility] [address] [place], [address] GFR/1.73 sq M.predicted among non-blacks MDRD (S/P/Bld) [Vol rate/Area] 73 mL/min/{1.73_m2} Normal >[address] [facility] Comment on above: Result Comment: Non- GFR Calc Performed By: #### L 100.0100, L500.2500, L300.8000, L501.4020 #### [facility] [address] [place], [address] Glucose [Mass/Vol] 148 mg/dL High 74-106 [facility] Comment on above: Result Comment: Fast ing Glucose result greater than or equal to 126 mg/dL suggests DIABETES MELLITUS per A.D.A. criteria. Performed By: #### L 100.0100, L500.2500, L300.8000, L501.4020 #### [facility] [address] [place], [address] Potassium [Moles/Vol] 3.8 mmol/L Normal 3.5-5.[address] [facility] Comment on above: Performed By: #### L 100.0100, L500.2500, L300.8000, L501.4020 #### [facility] [address] [place], [address] Sodium [Moles/Vol] 136 mmol/L Normal 136-145 [facility] Comment on above: Performed By: #### L 100.0100, L500.2500, L300.8000, L501.4020 #### [facility] [address] [place], [address] Urea nitrogen [Mass/Vol] 15 mg/dL Normal 7-[address] [facility] Comment on above: Performed By: #### L 100.0100, L500.2500, L300.8000, L501.4020 #### [facility] [address] [place], [address] Bilirubin Test strip Ql (U)O rdered By: Sly Blanco on 04-29-2024 Bilirubin Ql (U) Negative Negative [facility] Positive Normal [facility] Comment on above: Performed By: #### L 100.0100, L500.2500, L300.8000, L501.4020 #### [facility] [address] [place], [address] Base excess Calc (Bld) [Moles/Vol] 4 mmol/L High -2 to +[address] [facility] Comment on above: Performed By: #### L 100.0100, L500.2500, L300.8000, L501.4020 #### [facility] [address] [place], [address] Blood Gas Type ART [facility] Comment on above: Performed By: #### L 100.0100, L500.2500, L300.8000, L501.4020 #### [facility] [address] [place], [address] CO2 [Moles/Vol] 28 mmol/L Normal [facility] Comment on above: Performed By: #### L 100.0100, L500.2500, L300.8000, L501.4020 #### [facility] [address] [place], [address] HCO3 (Bld) [Moles/Vol] 27.2 mmol/L High 22-26 [facility] Comment on above: Performed By: #### L 100.0100, L500.2500, L300.8000, L501.4020 #### [facility] [address] [place], [address] Mode Not entered [facility] Comment on above: Performed By: #### L 100.0100, L500.2500, L300.8000, L501.4020 #### [facility] [address] [place], [address] O2 Delivery Dev Room Air [facility] Comment on above: Performed By: #### L 100.0100, L500.2500, L300.8000, L501.4020 #### [facility] [address] [place], [address] pCO2 32.8 mmHg Low 35-[address] [facility] Comment on above: Performed By: #### L 100.0100, L500.2500, L300.8000, L501.4020 #### [facility] [address] [place], [address] pH (Bld) 7.53 [pH] High 7.35-7.[address] [facility] Comment on above: Performed By: #### L 100.0100, L500.2500, L300.8000, L501.4020 #### [facility] [address] [place], [address] PO2 60 mmHG Low 75-[address] [facility] Comment on above: Performed By: #### L 100.0100, L500.2500, L300.8000, L501.4020 #### [facility] [address] [place], [address] SITE L Radial Normal [facility] Comment on above: Performed By: #### L 100.0100, L500.2500, L300.8000, L501.4020 #### [facility] [address] [place], [address] SO2 94 Low 95-[address] [facility] Comment on above: Performed By: #### L 100.0100, L500.2500, L300.8000, L501.4020 #### [facility] [address] [place], [address] Blood bicarbonate measuremen tOrdered By: Polly Herr on 04-29-2024 Blood Gas Bicarbonate Actual 27.2 mmol/L High 22-[address] [facility] CBC W/Diff, Automatedon 04-18 Absolute Lymph 1.79 X10 3/uL Normal 0.83-4.[address] [facility] Comment on above: Performed By: #### L 100.0100, L500.2500, L300.8000, L501.4020 #### [facility] [address] [place], [address] Absolute Neut 11.7 X10 3/uL High 2.0-7.[address] [facility] Comment on above: Performed By: #### L 100.0100, L500.2500, L300.8000, L501.4020 #### [facility] [address] [place], [address] Basophils/100 WBC (Bld) 0.5 % Normal 0-1 [facility] Comment on above: Performed By: #### L 100.0100, L500.2500, L300.8000, L501.4020 #### [facility] [address] [place], [address] Eosinophils/100 WBC (Bld) 2.3 % Normal 0-[address] [facility] Comment on above: Performed By: #### L 100.0100, L500.2500, L300.8000, L501.4020 #### [facility] [address] [place], [address] Erythrocyte distribution width (RBC) [Ratio] 13.2 % Normal 11.6-14.[address] [facility] Comment on above: Performed By: #### L 100.0100, L500.2500, L300.8000, L501.4020 #### [facility] [address] [place], [address] Hematocrit (Bld) [Volume fraction] 47.7 % High 37-[address] [facility] Comment on above: Performed By: #### L 100.0100, L500.2500, L300.8000, L501.4020 #### [facility] [address] [place], [address] Hemoglobin (Bld) [Mass/Vol] 15.2 g/dL High 12.0-15.[address] [facility] Comment on above: Performed By: #### L 100.0100, L500.2500, L300.8000, L501.4020 #### [facility] [address] [place], [address] IG% 0.600 Normal 0.0-0.[address] [facility] Comment on above: Result Comment: IG% - Immature Granulocytes (promyelocytes, myelocytes and metamyelocytes) > 1% indicates that a LEFT SHIFT is Present. Performed By: #### L 100.0100, L500.2500, L300.8000, L501.4020 #### [facility] [address] [place], [address] Lymphocytes/100 WBC (Bld) 12.1 % Low 19-[address] [facility] Comment on above: Performed By: #### L 100.0100, L500.2500, L300.8000, L501.4020 #### [facility] [address] [place], [address] MCH (RBC) [Entitic mass] 28.5 pg Normal 27.0-32.[address] [facility] Comment on above: Performed By: #### L 100.0100, L500.2500, L300.8000, L501.4020 #### [facility] [address] [place], [address] MCHC (RBC) [Mass/Vol] 31.9 g/dL Low 32-[address] [facility] Comment on above: Performed By: #### L 100.0100, L500.2500, L300.8000, L501.4020 #### [facility] [address] [place], [address] MCV (RBC) [Entitic vol] 89.5 fL Normal 81-99 [facility] Comment on above: Performed By: #### L 100.0100, L500.2500, L300.8000, L501.4020 #### [facility] [address] [place], [address] Monocytes/100 WBC (Bld) 4.9 % Normal 0-10 [facility] Comment on above: Performed By: #### L 100.0100, L500.2500, L300.8000, L501.4020 #### [facility] [address] [place], [address] Neutrophils/100 WBC (Bld) 79.6 % High 47-[address] [facility] Comment on above: Performed By: #### L 100.0100, L500.2500, L300.8000, L501.4020 #### [facility] [address] [place], [address] Nucleated RBC (Bld) [#/Vol] 0 10*3/uL Normal 0-[address] [facility] Comment on above: Performed By: #### L 100.0100, L500.2500, L300.8000, L501.4020 #### [facility] [address] [place], [address] Platelet mean volume (Bld) [Entitic vol] 10.7 fL Normal 6.2-12.[address] [facility] Comment on above: Performed By: #### L 100.0100, L500.2500, L300.8000, L501.4020 #### [facility] [address] [place], [address] Platelets (Bld) [#/Vol] 291 10*3/uL Normal 150-[address] [facility] Comment on above: Performed By: #### L 100.0100, L500.2500, L300.8000, L501.4020 #### [facility] [address] [place], [address] RBC (Bld) [#/Vol] 5.33 10*6/uL Normal 4.2-5.4 [facility] Comment on above: Performed By: #### L 100.0100, L500.2500, L300.8000, L501.4020 #### [facility] [address] [place], [address] RDW SD 43.5 fl Normal 35.1-43.[address] [facility] Comment on above: Performed By: #### L 100.0100, L500.2500, L300.8000, L501.4020 #### [facility] [address] [place], [address] WBC (Bld) [#/Vol] 14.8 10*3/uL High 4.4-11.0 [facility] Comment on above: Performed By: #### L 100.0100, L500.2500, L300.8000, L501.4020 #### [facility] [address] [place], [address] Chest 1 View (Portable)on Chest 1 View (Portable) [facility] Imaging Services [address] [place] [address] Chest 1 View (Portable) MR#: [id number] Acct: [id number] Name: FELICITAS ALCANTARA Rep #: [id number] : 1950 F 73 From: Aviva Joyner nd, MD PCP: Dr. Harish Noel MD Status: [facility] ER Study: Chest 1 View (Portable) Date of Exam: 04/29/24 Exam# [id number] Ordering Dr: Sly Blanco DO PROCEDURE: CHEST 1 VIEW (PORTABLE) REASON FOR EXAM: 73-year-old female, chest pain and shortness of breath. TECHNIQUE: Frontal view of the chest. COMPARISON: Yesterday FINDINGS: Prior median sternotomy and CABG. Stable mild cardiomegaly. The lungs are clear. No focal consolidation, pleural effusion or pneumothorax. Thoracic aortic calcifications. RAD/Chest 1 View (Portable) IMPRESSION: Stable mild cardiomegaly. Otherwise unremarkable chest radiograph. Reading Location: [facility] CC: Dr. Harish Noel MD; Dr. Sly Blanco DO Residential Team Leader: Signed Normal [facility] D-Dimer Quantitative (DVT/PE )on 04-29-2024 D-DIMER QUANT < 0.27 Low 0.27-0.[address] [facility] Comment on above: Result Comment: NORM AL D-Dimer level (<0.50) indicates no DVT or PE. Performed By: #### L 100.0100, L500.2500, L300.8000, L501.4020 #### [facility] [address] [place], [address] D-dimer measurement for deep venous thrombosisOrdered By: Sly Blanco on 04-29-2024 D-Dimer Quantitative (PE/DVT) < 0.27 FEU/ug/m Low 0.27-0.[address] [facility] Comment on above: NORMAL D-Dimer level (<0.50) indicates no DVT or PE. Emergency Department Summary on 04-29-2024 Emergency Department Summary [facility] Medical Records Department [address] [place] [address] Emergency Department Summary 04/29/24 MR#: [id number] Acct: [id number] Name: FELICITAS ALCANTARA Rep #: [id number] : 1950 73 From: Sly Blanco DO PCP: Dr. 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 Essential hypertension Carpal tunnel syndrome Hyperlipemia Hypertension Hypothyroidism History of pneumonia IBS (irritable bowel syndrome) Diabetes Home Medications ???Medication ???Instructions ???Recorded ???Last Taken ???Type levothyroxine 112 mcg tablet 112 mcg PO DAILY #90 tabs 01/16/24 Unknown Rx ticagrelor 60 mg tablet (Brilinta) 60 mg PO BID 01/16/24 Unknown Hi story blood-glucose sensor (Confercom G7 #1 ea 01/20/24 Unknown Rx Sensor device) carvedilol 25 mg tablet 25 mg PO BID #60 tabs 04/15/24 Unk nown Rx insulin lispro protamine-lispro See Rx Instructions subcut BID #15 04/16/24 Unknown Rx 100 unit/mL (75-25) subcutaneous mL pen Allergy/AdvReac Type Severity Reaction Status Date / Time alogliptin Allergy Hives Verified 04/29/24 14:46 dulaglutide (From Trulicity) Allergy Hives Verified 04/29/24 14:46 glipizide Allergy Hives Verified 04/29/24 14:46 metformin Allergy Hives Verified 04/29/24 14:46 Penicillins (PCN) Allergy Hives Verified 04/29/24 14:46 aspirin AdvReac Severe blood Verified 04/29/24 14:46 clots canagliflozin (From Invokana) AdvReac Severe abdominal Verified 04/29/24 14:46 pain Family History Sister Breast cancer Mother Hypertension Heart disease Myocardial infarction, Onset Age: 61 Thyroid disorder Grandmother Arthritis Seizures Father CVA (cerebral vascular accident) Brother Heart disease Myocardial infarction Sister CAD (coronary artery disease) Surgical History Hx of heart bypass surgery History of coronary artery bypass surgery ( 11/23/21) History of excision of mass ( 07/2020) Presence of coronary angioplasty implant and graft ( 04/10/16) History of tubal ligation History of hysterectomy History of tonsillectomy Social History household members: none Smoking Status: Former smoker how long ago did patient quit smokin12/2015 alcohol intake: never substance use type: does not use caffeine: Yes Type: coffee Number of servings: 1 frequency: 1-2 times per week EXAM Physical Exam Const Vital Signs: 04/29/24 14:42 04/29/24 15:13 04/29/24 16:00 Temperature 99 F 99 F 98.7 F Temperature Source Oral Oral Oral Pulse Rate 71 66 75 Respiratory Rate 17 16 26 H Respiratory Effort Respiratory Depth Respiratory Pattern Blood Pressure 200/98 H 200/98 H 175/72 H Blood Pressure Mean 132 132 106 Pulse Ox 96 96 95 Oxygen Delivery Method Room Air Room Air Room Air 04/29/24 16:11 04/29/24 16:14 04/29/24 17:00 Temperature 97.8 F Temperature Source Oral Pulse Rate 71 Respiratory Rate 20 H Respiratory Effort Normal Non-Labored Respiratory Depth Normal Respiratory Pattern Tachypnea Blood Pressure 178/84 H Blood Pressure Mean 115 Pulse Ox 96 Oxygen Delivery Method Room Air Room Air 04/29/24 18:10 04/29/24 18:40 04/29/24 19:00 Temperature 97.4 F L 97.7 F L Temperature Source Oral Oral Pulse Rate 73 78 71 Respiratory Rate 14 16 16 Respiratory Effort Respiratory Depth Respiratory Pattern Blood Pressure 194/88 H 180/74 H 189/108 H Blood Pressure Mean 123 109 135 Pulse Ox 95 97 97 Oxygen Delivery Method Room Air 04/29/24 19:33 04/29/24 20:13 Temperature 98 F Temperature Source Pulse Rate 74 72 Respiratory Rate 15 16 Respiratory Effort Respiratory Depth Respiratory Pattern Blood Pressure 203/65 H 171/70 H Blood Pressure Mean 111 103 Pulse Ox 93 92 Oxygen Delivery Method Room Air MDM MDM MDM Narrative Medical decision making narrative: HISTORY OF PRESENT ILLNESS: 73 F type 2 diabetes, hypertension, CAD status post bypass, status post stent, hyperlip (more content not included)... Normal [facility] Epithelial cells.squamous LM Ql (Urine sed)Ordered By: Sly Blanco on 04-29-2024 Epithelial cells.squamous LM.HPF (Urine sed) [#/Area] 0 /[HPF] 5-[address] [facility] Glucose Ql (U)Ordered By: Giovanny Blanco on 04-29-2024 Urine Glucose (UA) Normal mg/dl Normal [facility] H AND P Exam - Hospitaliston 04-29-2024 H&P Exam - Hospitalist [facility] Medical Records Department [address] [place] [address] H P Exam - Hospitalist 04/29/24 193 MR#: [id number] Acct: [id number] Name: FELICITAS ALCANTARA Rep #: [id number] : 1950 73 From: Polly Lomeli DO PCP: Dr. Harish Noel MD Status:ADM RUBINA Location: [place] [address] HPI - General General Date of Admission: 04/29/24 Date of Service: 04/29/24 Chief Complaint: Chest Pain, SOB and Elevated Hypertension. HPI Narrative FELICITAS ALCANTARA, is a 73 F with a past medical history of essential hypertension; on carvedilol, hypothyroidism; on levothyroxine, morbid obesity; with BMI of 42.3 this admission, former tobacco abuse (quit 2015), DM-2; of unknown control on insulin protamine-lispro, CAD; s/p NSTEMI with subsequent stents LAD (2015) RCA (2016) on ticagrelor, history of cardiogenic shock, history of CABG x 2 (2021), remote history of DVT during ; with listed allergy to ASA (blood clots), history of pneumonia, IBS, history of lip mass; s/p excision (2020), remote history of tubal ligation (1973), remote history of hysterectomy (1976), listed allergy to PCN (hives), CTS and OA who presents to [facility] ER complaining of chest pain, SOB and elevated hypertension. Ms. Alcantara reports her symptoms began approximately 4-5 hours prior to admission with chest pain that began at rest and was substernal, pressure-like, severe, 7/10 and was made worse with exertion. She admits her symptoms are similar to the angina that heralded her previous stents. She states she has evelyn taking her ticagrelor and carvedilol as prescribed with a significantly elevated blood pressure of 200/98 mmHg noted upon arrival. She admits to chills but she denies associated fever, abdominal pain, nausea, vomiting, diarrhea, constipation, lower extremity edema, recent trauma, chemotherapy, HRT or significant travel. In the ER patient was noted to have two normal range troponins, and negative d-dimer and mildly elevated BNP of 161.4 pg/mL present on admission suggestive of mild volume overload with a corresponding CXR that revealed stable mild cardiomegaly with otherwise unremarkable chest radiograph with Leukocytosis of 14.6K present on admission suspected to be due to Acute Phase Reactant with no overt signs of acute infection due to suspected AE Asthmatic Bronchitis. She was then diagnosed with suspected Hypertensive Urgency and treated with IV Labetalol x 1 in addition to SL NTG x 1 with her blood pressure briefly dipping to a low of 175/72 mmHg before rising back to 203/65 mmHg. She was then admitted to the PCU under observation status for ongoing care for a stay that is expected to be less than 2 midnights. [facility] Medical History History of left heart catheterization (LHC) ( 09/05/21) Abnormal nuclear stress test Dyspnea on exertion Mass of lip Elevated WBC count History of DVT (deep vein thrombosis) Presence of stent in coronary artery ( 04/10/16) History of non-ST elevation myocardial infarction (NSTEMI) Cardiogenic shock Type 2 diabetes mellitus 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 Essential hypertension Carpal tunnel syndrome Hyperlipemia Hypertension Hypothyroidism History of pneumonia IBS (irritable bowel syndrome) Diabetes Home Medications ???Medication ???Instructions ???Recorded ???Last Taken ???Type levothyroxine 112 mcg tablet 112 mcg PO DAILY #90 tabs 01/16/24 Unknown Rx ticagrelor 60 mg tablet (Brilinta) 60 mg PO BID 01/16/24 Unknown Hi story blood-glucose sensor (Dexcom G7 #1 ea 01/20/24 Unknown Rx Sensor device) carvedilol 25 mg tablet 25 mg PO BID #60 tabs 04/15/24 Unk nown Rx insulin lispro protamine-lispro See Rx Instructions subcut BID #15 04/16/24 Unknown Rx 100 unit/mL (75-25) subcutaneous mL pen Allergy/AdvReac Type Severity Reaction Status Date / Time alogliptin Allergy Hives Verified 04/29/24 14:46 dulaglutide (From Trulicity) Allergy Hives Verified 04/29/24 14:46 glipizide Allergy Hives Verified 04/29/24 14:46 metformin Allergy Hives Verified 04/29/24 14:46 Penicillins (PCN) Allergy Hives Verified 04/29/24 14:46 aspirin AdvReac Severe blood Verified 04/29/24 14:46 clots canagliflozin (From Invokana) AdvReac Severe abdominal Verified 04/29/24 14:46 pain Family History Sister Breast cancer Mother Hypertension Heart disease Myocardial infarction, Onset Age: 61 Thyroid disorder Grandmother Arthritis Seizures Father CVA (cerebral vascular accident) Brother Heart disease Myocardial infarction Sister CAD (coronary artery disease) Surgical History Hx of hear (more content not included)... Normal [facility] Hemoglobin A1con 04-29-2024 HbA1c (Bld) [Mass fraction] 9.4 % High 3.8-5.[address] [facility] Comment on above: Result Comment: Norm al < 5.7 % Prediabetic 5.7 - 6.4 % Diabetic >or= 6.5 % Please note range changes. Performed By: #### L 100.0100, L500.2500, L300.8000, L501.4020 #### [facility] Laboratory [address] [place], [address] Hemoglobin A1c percentageOrd ered By: Polly Herr on 04-29-2024 HbA1c (Bld) [Mass fraction] 9.4 % High 3.8-5.[address] [facility] Comment on above: Normal < 5.7 % Predi abetic 5.7 - 6.4 % Diabetic >or= 6.5 % Please note range changes. High density lipoprotein (HD L) measurementOrdered By: Polly Herr on 04-29-2024 Cholesterol in HDL [Mass/Vol] 64 mg/dL >[address] [facility] Comment on above: The drugs N-Acetylcy steine and Metamizole may falsely depress this assay. Reference Range HDL <40 mg/dL Low HDL Cholesterol HDL >or= 60 mg/dL High HDL Cholesterol Influenza virus A and B and SARS-CoV-2 (COVID-19) and Respiratory syncytial virus RNAOrdered By: Sly Blanco on 04-29-2024 SARS-CoV-2 (COVID-19) RNA SLOAN+probe Ql (Unsp spec) [facility] Ketones Test strip Ql (U)Ord ered By: Sly Blanco on 04-29-2024 Ketones Ql (U) Negative Negative [facility] L501.4020on 04-29-2024 TROPONIN-I HS 17 pg/mL Normal 3.0-54.[address] [facility] Comment on above: Order Comment: 'TROP ' Serial specimen #1, #2 or #3: 3 Result Comment: Carlton rice Note: New Test Units and Gender Specific Reference Ranges. For more information see Policy Stat Procedure B[place]soe High Sensitivity Troponin (TNIH) and attachments. Performed By: #### L 501.4020 ####[facility] [address] [place], [address] TROPONIN-I HS 14 pg/mL Normal 3.0-54.[address] [facility] Comment on above: Result Comment: Plea se Note: New Test Units and Gender Specific Reference Ranges. For more information see Policy Stat Procedure Bledsoe High Sensitivity Troponin (TNIH) and attachments. Performed By: #### L 100.0100, L500.2500, L300.8000, L501.4020 #### [facility] [address] [place], [address] L501.5425on 04-29-2024 TROPONIN-I HS 12 pg/mL Normal 3.0-54.[address] [facility] Comment on above: Order Comment: 'TROP ' Serial specimen #1, #2 or #3: 1 Result Comment: Plea se Note: New Test Units and Gender Specific Reference Ranges. For more information see Policy Stat Procedure Bledsoe High Sensitivity Troponin (TNIH) and attachments. Performed By: #### L 100.0100, L500.2500, L300.8000, L501.4020 #### [facility] [address] [place], [address] Lipid Profileon 04-29-2024 Cholesterol [Mass/Vol] 197 mg/dL Normal 200 [facility] Comment on above: Result Comment: <200 mg/dL Desirable 200-240 mg/dL Borderline >240 mg/dL High Risk Performed By: #### L 100.0100, L500.2500, L300.8000, L501.4020 #### [facility] [address] [place], [address] Cholesterol in HDL [Mass/Vol] 64 mg/dL Normal [facility] Comment on above: Result Comment: The drugs N-Acetylcysteine and Metamizole may falsely depress this assay. Reference Range HDL <40 mg/dL Low HDL Cholesterol HDL >or= 60 mg/dL High HDL Cholesterol Performed By: #### L 100.0100, L500.2500, L300.8000, L501.4020 #### [facility] [address] [place], [address] Cholesterol in LDL [Mass/Vol] 102 mg/dL Normal 0-[address] [facility] Comment on above: Performed By: #### L 100.0100, L500.2500, L300.8000, L501.4020 #### [facility] [address] [place], [address] Cholesterol in VLDL [Mass/Vol] 31 mg/dL Normal 5-[address] [facility] Comment on above: Performed By: #### L 100.0100, L500.2500, L300.8000, L501.4020 #### [facility] [address] [place], [address] Triglyceride [Mass/Vol] 155 mg/dL Normal [facility] Comment on above: Result Comment: The drugs N-Acetylcysteine and Metamizole may falsely depress this assay. Serum Triglycerides Reference Interval Normal <150 mg/dL Borderline high 150 - 199 mg/dL High 200 - 499 mg/dL Very High > or = 500 mg/dL Performed By: #### L 100.0100, L500.2500, L300.8000, L501.4020 #### [facility] [address] [place], [address] Low density lipoprotein (LDL ) cholesterol measurementOrdered By: Polly Herr on 04-29-2024 Cholesterol in LDL [Mass/Vol] 102 mg/dL 0-[address] [facility] M100.678on 04-29-2024 M100.678 SARS-CoV-2 (COVID 19 ) Negative INFLUENZA A Negative INFLUENZA B Negative RSV PCR Negative Normal [facility] Comment on above: Performed By: #### M 100.678 ####[facility] [address] [place], [address] Microscopic analysis of urin e for red blood cells (RBC)Ordered By: Sly Blanco on 04-29-2024 Urine RBC 0-5 SEEN /hpf 0-[address] [facility] Mucus LM Ql (Urine sed)Order ed By: Sly Blanco on 04-29-2024 Mucus Ql (Urine sed) 0 SEEN /hpf [facility] Nitrite Test strip Ql (U)Ord ered By: Sly Blanco on 04-29-2024 Nitrite Ql (U) Negative Negative [facility] No Panel InformationOrdered By: Polly Herr on 04-29-2024 Blood Gas Sample Site L Radial [facility] Blood Gas Specimen Type ART [facility] Blood Gas Vent Mode Not entered [facility] Oxygen Delivery Device Room Air [facility] Oxygen saturation measuremen tOrdered By: Polly Herr on 04-29-2024 Blood Gas Oxygen Saturation 94 % Low 95-[address] [facility] Partial pressure of carbon d ioxide measurementOrdered By: Polly Herr on 04-29-2024 Arterial Blood Partial Pressure CO2 32.8 mmHg Low 35-[address] [facility] Partial pressure of oxygen m easurementOrdered By: Polly Herr on 04-29-2024 Arterial Blood Partial Pressure O2 60 mmHG Low 75-[address] [facility] Protein Test strip Ql (U)Ord ered By: Sly Blanco on 04-29-2024 Protein Ql (U) Negative Negative [facility] Serum or plasma cholesterol measurement (mass/volume)Ordered By: Polly Herr on 04-29-2024 Cholesterol [Mass/Vol] 197 mg/dL <200 [facility] Comment on above: <200 mg/dL Desirable 200-240 mg/dL Borderline >240 mg/dL High Risk TSH QnOrdered By: Polly vasquez on 04-29-2024 Thyroid Stimulating Hormone (TSH) 3.480 uIU/mL 0.358-3.[address] [facility] Thyroid Stim Hormone (TSH)on 04-29-2024 TSH 3.480 uIU/mL Normal 0.358-3.[address] [facility] Comment on above: Performed By: #### L 100.0100, L500.2500, L300.8000, L501.4020 #### [facility] Laboratory [facility] [address] [place], [place], [id number] Total carbon dioxide measure mentOrdered By: Polly Herr on 04-29-2024 Blood Gas Total CO2 28 mmol/L [facility] Triglycerides measurementOrd ered By: Polly Herr on 04-29-2024 Triglyceride [Mass/Vol] 155 mg/dL <199 [facility] Comment on above: The drugs N-Acetylcy steine and Metamizole may falsely depress this assay.Serum Triglycerides Reference Interval Normal <150 mg/dL Borderline high 150 - 199 mg/dL High 200 - 499 mg/dL Very High > or = 500 mg/dL Troponin IOrdered By: Polly Herr on 04-29-2024 Troponin I High Sensitivity 17 pg/mL 3.0-54.[address] [facility] Comment on above: Please Note: [place] t Units and Gender Specific Reference Ranges. For more information see Policy Stat Procedure B[place]soe High Sensitivity Troponin (TNIH) and attachments. Urinalysis, Completeon 04-29 EPI,SQUAMOUS 0-5 SEEN Normal 5-[address] [facility] Comment on above: Order Comment: MAURISIO CTOR TO SPECIFY Performed By: #### L 400.0001 ####[facility] [address] [place], [address] RBC 0-5 SEEN Normal 0-[address] [facility] Comment on above: Order Comment: MAURISIO CTOR TO SPECIFY Performed By: #### L 400.0001 ####[facility] [address] [place], [address] WBC 0-5 SEEN Normal 0-[address] [facility] Comment on above: Order Comment: MAURISIO CTOR TO SPECIFY Performed By: #### L 400.0001 ####[facility] [address] [place], [address] BACTERIA Normal None Seen [facility] Comment on above: Order Comment: CLEAN CATCH Result Comment: Marina elled via OM: Duplicate Order Performed By: #### L 100.0100, L500.2500, L300.8000, L501.4020 #### [facility] [address] [place], [address] BILIRUBIN URINE Normal Negative [facility] Comment on above: Order Comment: CLEAN CATCH Result Comment: Canc elled via OM: Duplicate Order Performed By: #### L 100.0100, L500.2500, L300.8000, L501.4020 #### [facility] [address] [place], [address] Clarity (U) Normal Clear [facility] Comment on above: Order Comment: CLEAN CATCH Result Comment: Canc elled via OM: Duplicate Order Performed By: #### L 100.0100, L500.2500, L300.8000, L501.4020 #### [facility] [address] [place], [address] Color (U) Normal Yellow [facility] Comment on above: Order Comment: CLEAN CATCH Result Comment: Canc elled via OM: Duplicate Order Performed By: #### L 100.0100, L500.2500, L300.8000, L501.4020 #### [facility] [address] [place], [address] EPI,SQUAMOUS Normal 5-[address] [facility] Comment on above: Order Comment: CLEAN CATCH Result Comment: Canc elled via OM: Duplicate Order Performed By: #### L 100.0100, L500.2500, L300.8000, L501.4020 #### [facility] [address] [place], [address] GLUCOSE, UR Normal Normal [facility] Comment on above: Order Comment: CLEAN CATCH Result Comment: Canc elled via OM: Duplicate Order Performed By: #### L 100.0100, L500.2500, L300.8000, L501.4020 #### [facility] [address] [place], [address] KETONE UR Normal Negative [facility] Comment on above: Order Comment: CLEAN CATCH Result Comment: Canc elled via OM: Duplicate Order Performed By: #### L 100.0100, L500.2500, L300.8000, L501.4020 #### [facility] [address] [place], [address] LEUK ESTERASE Normal Negative [facility] Comment on above: Order Comment: CLEAN CATCH Result Comment: Canc elled via OM: Duplicate Order Performed By: #### L 100.0100, L500.2500, L300.8000, L501.4020 #### [facility] [address] [place], [address] Mucus Ql (Urine sed) Normal [facility] Comment on above: Order Comment: CLEAN CATCH Result Comment: Canc elled via OM: Duplicate Order Performed By: #### L 100.0100, L500.2500, L300.8000, L501.4020 #### [facility] [address] [place], [address] Nitrite Ql (U) Normal Negative [facility] Comment on above: Order Comment: CLEAN CATCH Result Comment: Canc elled via OM: Duplicate Order Performed By: #### L 100.0100, L500.2500, L300.8000, L501.4020 #### [facility] [address] [place], [address] OCCULT BLOOD-UR Normal Negative [facility] Comment on above: Order Comment: CLEAN CATCH Result Comment: Canc elled via OM: Duplicate Order Performed By: #### L 100.0100, L500.2500, L300.8000, L501.4020 #### [facility] [address] [place], [address] pH UR Normal 5.0 - 8.[address] [facility] Comment on above: Order Comment: CLEAN CATCH Result Comment: Canc elled via OM: Duplicate Order Performed By: #### L 100.0100, L500.2500, L300.8000, L501.4020 #### [facility] [address] [place], [address] PROT DIPSTX Normal Negative [facility] Comment on above: Order Comment: CLEAN CATCH Result Comment: Canc elled via OM: Duplicate Order Performed By: #### L 100.0100, L500.2500, L300.8000, L501.4020 #### [facility] [address] [place], [address] RBC Normal 0-[address] [facility] Comment on above: Order Comment: CLEAN CATCH Result Comment: Canc elled via OM: Duplicate Order Performed By: #### L 100.0100, L500.2500, L300.8000, L501.4020 #### [facility] [address] [place], [address] SP.GR. DIPSTX Normal 1.002-1.[address] [facility] Comment on above: Order Comment: CLEAN CATCH Result Comment: Canc elled via OM: Duplicate Order Performed By: #### L 100.0100, L500.2500, L300.8000, L501.4020 #### [facility] [address] [place], [address] UR Preservative Normal [facility] Comment on above: Order Comment: CLEAN CATCH Result Comment: Canc elled via OM: Duplicate Order Performed By: #### L 100.0100, L500.2500, L300.8000, L501.4020 #### [facility] [address] [place], [address] UROBILI Normal Normal [facility] Comment on above: Order Comment: CLEAN CATCH Result Comment: Canc elled via OM: Duplicate Order Performed By: #### L 100.0100, L500.2500, L300.8000, L501.4020 #### [facility] [address] [place], [address] WBC Normal 0-[address] [facility] Comment on above: Order Comment: CLEAN CATCH Result Comment: Canc elled via OM: Duplicate Order Performed By: #### L 100.0100, L500.2500, L300.8000, L501.4020 #### [facility] [address] [place], [address] BACTERIA 0 SEEN Normal None Seen [facility] Comment on above: Order Comment: MAURISIO CTOR TO SPECIFY Performed By: #### L 400.0001 ####[facility] [address] [place], [address] Mucus Ql (Urine sed) 0 SEEN Normal [facility] Comment on above: Order Comment: COLLE CTOR TO SPECIFY Performed By: #### L 400.0001 ####[facility] [address] [place], [address] Urine Drug Screen (VISTA)on 04-29-2024 AMPHETAMINES Normal <1000 ng/mL [facility] Comment on above: Result Comment: PT.D ISCHARGED, COULD NOT FIND A PLAIN YELLOW TOP/STERILE CUP URINE Performed By: #### L 100.0100, L500.2500, L300.8000, L501.4020 #### [facility] [address] [place], [address] BARBITIURATES Normal < 200 ng/mL [facility] Comment on above: Result Comment: PT.D ISCHARGED, COULD NOT FIND A PLAIN YELLOW TOP/STERILE CUP URINE Performed By: #### L 100.0100, L500.2500, L300.8000, L501.4020 #### [facility] [address] [place], [address] BENZODIAZIPINE Normal < 200 ng/mL [facility] Comment on above: Result Comment: PT.D ISCHARGED, COULD NOT FIND A PLAIN YELLOW TOP/STERILE CUP URINE Performed By: #### L 100.0100, L500.2500, L300.8000, L501.4020 #### [facility] [address] [place], [address] COCAINE Normal < 300 ng/mL [facility] Comment on above: Result Comment: PT.D ISCHARGED, COULD NOT FIND A PLAIN YELLOW TOP/STERILE CUP URINE Performed By: #### L 100.0100, L500.2500, L300.8000, L501.4020 #### [facility] [address] [place], [address] DRUG CONFIRM Normal [facility] Comment on above: Result Comment: PT.D ISCHARGED, COULD NOT FIND A PLAIN YELLOW TOP/STERILE CUP URINE Performed By: #### L 100.0100, L500.2500, L300.8000, L501.4020 #### [facility] [address] [place] [address] ECSTACY Normal < 500 ng/mL [facility] Comment on above: Result Comment: PT.D ISCHARGED, COULD NOT FIND A PLAIN YELLOW TOP/STERILE CUP URINE Performed By: #### L 100.0100, L500.2500, L300.8000, L501.4020 #### [facility] [address] [place] [address] METHADONE Normal < 300 ng/mL [facility] Comment on above: Result Comment: PT.D ISCHARGED, COULD NOT FIND A PLAIN YELLOW TOP/STERILE CUP URINE Performed By: #### L 100.0100, L500.2500, L300.8000, L501.4020 #### [facility] [address] [facility] [address] OPIATES Normal < 300 ng/mL [facility] Comment on above: Result Comment: PT.D ISCHARGED, COULD NOT FIND A PLAIN YELLOW TOP/STERILE CUP URINE Performed By: #### L 100.0100, L500.2500, L300.8000, L501.4020 #### [facility] [address] [place] [address] PCP Normal < 25 ng/mL [facility] Comment on above: Result Comment: PT.D ISCHARGED, COULD NOT FIND A PLAIN YELLOW TOP/STERILE CUP URINE Performed By: #### L 100.0100, L500.2500, L300.8000, L501.4020 #### [facility] [address] [place], [address] THC Normal < 50 ng/mL [facility] Comment on above: Result Comment: PT.D ISCHARGED, COULD NOT FIND A PLAIN YELLOW TOP/STERILE CUP URINE Performed By: #### L 100.0100, L500.2500, L300.8000, L501.4020 #### [facility] [address] [place], [address] VISTA UDS PH Normal [facility] Comment on above: Result Comment: PT.D ISCHARGED, COULD NOT FIND A PLAIN YELLOW TOP/STERILE CUP URINE Performed By: #### L 100.0100, L500.2500, L300.8000, L501.4020 #### [facility] [address] [place], [address] Urine blood detectionOrdered By: Sly Blanco on 04-29-2024 Urine Occult Blood 10 /ul High Negative [facility] Urine clarityOrdered By: Kinjal Blanco on 04-29-2024 Clarity (U) Clear Clear [facility] Urine color determinationOrd ered By: Sly Blanco on 04-29-2024 Color (U) Straw Yellow [facility] Urine leukocyte esterase det ection by dipstickOrdered By: Sly Blanco on 04-29-2024 Leukocyte esterase Test strip Ql (U) 25 /ul High Negative [facility] Urine pHOrdered By: Sly sandra on 04-29-2024 pH (U) 8.0 [pH] 5.0 - 8.[address] [facility] Urine sediment bacteria coun t by microscopy (number/high power field)Ordered By: Sly Blanco on 04-29-2024 Bacteria LM.HPF (Urine sed) [#/Area] 0 /[HPF] None Seen [facility] Urine specific gravity measu rementOrdered By: Sly Blanco on 04-29-2024 Specific gravity (U) [Rel density] 1.010 1.002-1.[address] [facility] Urobilinogen Ql (U)Ordered B y: Sly Blanco on 04-29-2024 Urine Urobilinogen Normal mg/dl Normal [facility] Very low density lipoprotein (VLDL) cholesterol measurementOrdered By: Polly Herr on 04-29-2024 VLDL Cholesterol 31 mg/dL 5-[address] [facility] White blood cell countOrdere d By: Sly Blanco on 04-29-2024 Urine WBC 0-5 SEEN /hpf 0-[address] [facility] pH (Unsp spec)Ordered By: Mane Herr on 04-29-2024 Blood Gas pH 7.53 High 7.35-7.[address] [facility] CBC W/Diff, Automatedon 11-0 -2023 Absolute Lymph 2.42 X10 3/uL Normal 0.83-4.[address] [facility] Comment on above: Performed By: #### L 400.0001 #### [facility] [address] [place], [address] Absolute Neut 9.2 X10 3/uL High 2.0-7.[address] [facility] Comment on above: Performed By: #### L 400.0001 #### [facility] [address] [place], [address] Basophils/100 WBC (Bld) 0.3 % Normal 0-1 [facility] Comment on above: Performed By: #### L 400.0001 #### [facility] [address] [place], [address] Eosinophils/100 WBC (Bld) 2.0 % Normal 0-[address] [facility] Comment on above: Performed By: #### L 400.0001 #### [facility] [address] [place], [address] Erythrocyte distribution width (RBC) [Ratio] 13.1 % Normal 11.6-14.[address] [facility] Comment on above: Performed By: #### L 400.0001 #### [facility] [address] [place], [address] Hematocrit (Bld) [Volume fraction] 44.4 % Normal 37-[address] [facility] Comment on above: Performed By: #### L 400.0001 #### [facility] [address] [place], [address] Hemoglobin (Bld) [Mass/Vol] 14.1 g/dL Normal 12.0-15.[address] [facility] Comment on above: Performed By: #### L 400.0001 #### [facility] [address] [place], [address] IG% 0.600 Normal 0.0-0.[address] [facility] Comment on above: Result Comment: IG% - Immature Granulocytes (promyelocytes, myelocytes and metamyelocytes) > 1% indicates that a LEFT SHIFT is Present. Performed By: #### L 400.0001 #### [facility] [address] [place], [address] Lymphocytes/100 WBC (Bld) 18.9 % Low 19-[address] [facility] Comment on above: Performed By: #### L 400.0001 #### [facility] [address] [place], [address] MCH (RBC) [Entitic mass] 29.4 pg Normal 27.0-32.[address] [facility] Comment on above: Performed By: #### L 400.0001 #### [facility] [address] [place], [address] MCHC (RBC) [Mass/Vol] 31.8 g/dL Low 32-[address] [facility] Comment on above: Performed By: #### L 400.0001 #### [facility] [address] [place], [address] MCV (RBC) [Entitic vol] 92.5 fL Normal 81-99 [facility] Comment on above: Performed By: #### L 400.0001 #### [facility] [address] [place], [address] Monocytes/100 WBC (Bld) 6.7 % Normal 0-10 [facility] Comment on above: Performed By: #### L 400.0001 #### [facility] [address] [place], [address] Neutrophils/100 WBC (Bld) 71.5 % High 47-[address] [facility] Comment on above: Performed By: #### L 400.0001 #### [facility] [address] [place], [address] Nucleated RBC (Bld) [#/Vol] 0 10*3/uL Normal 0-[address] [facility] Comment on above: Performed By: #### L 400.0001 #### [facility] [address] [place], [address] Platelet mean volume (Bld) [Entitic vol] 10.8 fL Normal 6.2-12.[address] [facility] Comment on above: Performed By: #### L 400.0001 #### [facility] [address] [place], [address] Platelets (Bld) [#/Vol] 305 10*3/uL Normal 150-[address] [facility] Comment on above: Performed By: #### L 400.0001 #### [facility] [address] [place], [address] RBC (Bld) [#/Vol] 4.80 10*6/uL Normal 4.2-5.4 [facility] Comment on above: Performed By: #### L 400.0001 #### [facility] [address] [place], [address] RDW SD 44.4 fl High 35.1-43.[address] [facility] Comment on above: Performed By: #### L 400.0001 #### [facility] [address] [place], [address] WBC (Bld) [#/Vol] 12.8 10*3/uL High 4.4-11.0 [facility] Comment on above: Performed By: #### L 400.0001 #### [facility] [address] [place], [address] Comprehensive Metabolic Prof ilon 01-17-2024 Albumin [Mass/Vol] 3.3 g/dL Normal 3.2-5.0 [facility] Comment on above: Performed By: #### L 400.0001 #### [facility] [address] [place], [address] Albumin/Globulin [Mass ratio] 0.8 {ratio} Low 0.9-2.[address] [facility] Comment on above: Performed By: #### L 400.0001 #### [facility] [address] [place], [address] ALK P 110 U/L Normal 45-[address] [facility] Comment on above: Performed By: #### L 400.0001 #### [facility] [address] [place], [address] ALT [Catalytic activity/Vol] 20 U/L Normal 13-[address] [facility] Comment on above: Performed By: #### L 400.0001 #### [facility] [address] [place], [address] AST [Catalytic activity/Vol] 12 U/L Low 15-[address] [facility] Comment on above: Performed By: #### L 400.0001 #### [facility] [address] [place], [address] Bilirubin [Mass/Vol] 0.70 mg/dL Normal 0.20-1.00 [facility] Comment on above: Result Comment: For patients on eltrombopag therapy, use of Dimension Bledsoe TBIL is not recommended. Performed By: #### L 400.0001 #### [facility] [address] [place], [address] BUN/CRE 20.4 RATIO High 10-[address] [facility] Comment on above: Performed By: #### L 400.0001 #### [facility] [address] [place], [address] CA,Total 9.1 mg/dL Normal 8.5-10.[address] [facility] Comment on above: Performed By: #### L 400.0001 #### [facility] [address] [place], [address] Chloride [Moles/Vol] 102 mmol/L Normal 98-107 [facility] Comment on above: Performed By: #### L 400.0001 #### [facility] [address] [place], [address] CO2 [Moles/Vol] 26.0 mmol/L Normal 21.0-32.[address] [facility] Comment on above: Performed By: #### L 400.0001 #### [facility] [address] [place], [address] Creatinine [Mass/Vol] 0.88 mg/dL Normal 0.55-1.[address] [facility] Comment on above: Result Comment: The validity of the calculated GFR GFRAA in patients over 70 years has not been determined. Clinical correlation is essential. Performed By: #### L 400.0001 #### [facility] [address] [place], [address] EST GFR - AA 81 mL/min Normal >[address] [facility] Comment on above: Result Comment: Afri can Jamaican GFR Calc Performed By: #### L 400.0001 #### [facility] [address] [place], [address] GAP 8 Normal 5-[address] [facility] Comment on above: Performed By: #### L 400.0001 #### [facility] [address] [place], [address] GFR/1.73 sq M.predicted among non-blacks MDRD (S/P/Bld) [Vol rate/Area] 67 mL/min/{1.73_m2} Normal >[address] [facility] Comment on above: Result Comment: Non- GFR Calc Performed By: #### L 400.0001 #### [facility] [address] [place], [address] Globulin (S) [Mass/Vol] 4.0 g/dL Normal 2.2-4.2 [facility] Comment on above: Performed By: #### L 400.0001 #### [facility] [address] [place], [address] Glucose [Mass/Vol] 277 mg/dL High 74-106 [facility] Comment on above: Result Comment: Gluc ose result greater than or equal to 200 mg/dL suggests DIABETES MELLITUS per A.D.A. criteria. Performed By: #### L 400.0001 #### [facility] [address] [place], [address] Potassium [Moles/Vol] 4.4 mmol/L Normal 3.5-5.[address] [facility] Comment on above: Performed By: #### L 400.0001 #### [facility] [address] [place], [address] Sodium [Moles/Vol] 136 mmol/L Normal 136-145 [facility] Comment on above: Performed By: #### L 400.0001 #### [facility] [address] [place], [address] T PROT 7.3 g/dL Normal 6.4-8.[address] [facility] Comment on above: Performed By: #### L 400.0001 #### [facility] [address] [place], [address] Urea nitrogen [Mass/Vol] 18 mg/dL Normal 7-[address] [facility] Comment on above: Performed By: #### L 400.0001 #### [facility] [address] [place], [address] Free T3on 01-17-2024 Free T3 [Mass/Vol] 2.4 pg/mL Normal 2.18-3.98 [facility] Comment on above: Performed By: #### L 400.0001 #### [facility] [address] [place], [address] Hemoglobin A1con 01-17-2024 HbA1c (Bld) [Mass fraction] 10.8 % High 3.8-5.[address] [facility] Comment on above: Result Comment: Norm al < 5.7 % Prediabetic 5.7 - 6.4 % Diabetic >or= 6.5 % Please note range changes. Performed By: #### L 400.0001 #### [facility] [address] [place], [address] Lipid Profileon 01-17-2024 Cholesterol [Mass/Vol] 143 mg/dL Normal 200 [facility] Comment on above: Result Comment: <200 mg/dL Desirable 200-240 mg/dL Borderline >240 mg/dL High Risk Performed By: #### L 400.0001 #### [facility] [address] [place], [address] Cholesterol in HDL [Mass/Vol] 54 mg/dL Normal [facility] Comment on above: Result Comment: The drugs N-Acetylcysteine and Metamizole may falsely depress this assay. Reference Range HDL <40 mg/dL Low HDL Cholesterol HDL >or= 60 mg/dL High HDL Cholesterol Performed By: #### L 400.0001 #### [facility] [address] [place], [address] Cholesterol in LDL [Mass/Vol] 53 mg/dL Normal 0-[address] [facility] Comment on above: Performed By: #### L 400.0001 #### [facility] [address] [place], [address] Cholesterol in VLDL [Mass/Vol] 36 mg/dL Normal 5-[address] [facility] Comment on above: Performed By: #### L 400.0001 #### [facility] [address] [place], [address] Triglyceride [Mass/Vol] 182 mg/dL Normal [facility] Comment on above: Result Comment: The drugs N-Acetylcysteine and Metamizole may falsely depress this assay. Serum Triglycerides Reference Interval Normal <150 mg/dL Borderline high 150 - 199 mg/dL High 200 - 499 mg/dL Very High > or = 500 mg/dL Performed By: #### L 400.0001 #### [facility] [address] [place], [address] Magnesiumon 01-17-2024 Magnesium [Mass/Vol] 2.1 mg/dL Normal 1.6-2.6 [facility] Comment on above: Performed By: #### L 400.0001 #### [facility] [address] [place], [address] T4 Free Directon 01-17-2024 T4 FREE DIRECT 1.16 ng/dL Normal 0.76-1.[address] [facility] Comment on above: Performed By: #### L 400.0001 #### [facility] [address] [place], [address] Thyroid Stim Hormone (TSH)on 01-17-2024 TSH 3.800 uIU/mL High 0.358-3.[address] [facility] Comment on above: Performed By: #### L 400.0001 #### [facility] [address] [place], [address] Vitamin D,25 Hydroxyon 01-16 Vitamin D 25-OH 10.2 ng/mL Normal [facility] Comment on above: Result Comment: Lucy min D 25(OH) Status Range Deficiency <20 ng/mL (50nmol/L) Insufficiency 20 - 30 ng/mL (50 - 75 nmol/L) Sufficiency 30 - 100 ng/mL (75 - 250 nmol/L) Toxicity >100 ng/mL (>250 nmol/L) Performed By: #### L 400.0001 #### [facility] [address] [place], [place], [id number] MR/BMS.IMBon 01-16-2024 MR/BMS.IMB [facility] [address] [place], [place] [address] OFFICE VISIT Date of Service: 01/16/24 MR#: [id number] Acct: [id number] Name: FELICITAS ALCANTARA Rep #: [id number] : 1950 Provider: Dr. 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 Accompanied by: Self Is patient in pain?: No Allergies alogliptin Allergy (Verified 01/16/24 12:49) Hives dulaglutide (From Trulicity) Allergy (Verified 01/16/24 12:49) Hives glipizide Allergy (Verified 01/16/24 12:49) Hives metformin Allergy (Verified 01/16/24 12:49) Hives Penicillins (PCN) Allergy (Verified 01/16/24 12:49) Hives aspirin Adverse Reaction (Severe, Verified 01/16/24 12:49) blood clots canagliflozin (From Invokana) Adverse Reaction (Severe, Verified 01/16/24 12:49) abdominal pain Medications ???Medication ???Instructions ???Recorded ???Confirmed ???Type carvedilol 25 mg tablet 25 mg PO BID #60 tabs 12/16/23 01/16/24 Rx albuterol sulfate 90 mcg/actuation 2 puff inhalation Q6H PRN 01/16/24 01/16/24 Rx aerosol inhaler shortness of breath or wheezing #8.5 grams insulin NPH-regular 70-30 U-100 See Rx Instructions subcut QAM #15 01/16/24 Rx insulin 100 unit/mL subcutaneous mL pen levothyroxine 112 mcg tablet 112 mcg PO DAILY #90 tabs 01/16/24 Rx ticagrelor 60 mg tablet (Brilinta) 60 mg PO BID 01/16/24 01/16/24 History Have you fallen in the past year?: No PFSH Medical History History of left heart catheterization (LHC) ( 09/05/21) Abnormal nuclear stress test Dyspnea on exertion Mass of lip Elevated WBC count History of DVT (deep vein thrombosis) Presence of stent in coronary artery ( 04/10/16) History of non-ST elevation myocardial infarction (NSTEMI) Cardiogenic shock Type 2 diabetes mellitus 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 Essential hypertension Carpal tunnel syndrome Hyperlipemia Hypertension Hypothyroidism History of pneumonia IBS (irritable bowel syndrome) Diabetes Surgical History Hx of heart bypass surgery History of coronary artery bypass surgery ( 11/23/21) History of excision of mass ( 07/2020) Presence of coronary angioplasty implant and graft ( 04/10/16) History of tubal ligation History of hysterectomy History of tonsillectomy Family History Sister Breast cancer Mother Hypertension Heart disease Myocardial infarction, Onset Age: 61 Thyroid disorder Grandmother Arthritis Seizures Father CVA (cerebral vascular accident) Brother Heart disease Myocardial infarction Sister CAD (coronary artery disease) Social History household members: none Smoking Status: Former smoker how long ago did patient quit smokin12/2015 alcohol intake: never substance use type: does not use caffeine: Yes Type: coffee Number of servings: 1 frequency: 1-2 times per week HPI HPI Chief Complaint: [facility] ER fu Details: FELICITAS ALCANTARA, is a 73 F who presents to the office today for ER follow-up/6-month follow-up. Patient went to the emergency room, for increasing shortness of breath. She states she feels like she gets congested in the chest and will slowly progresses. This has happened several times. She responded well in the ER apparently to albuterol nebulizer. Remotely had used or had available albuterol MDI. She does have CAD, status post multiple stents, status post CABG 2 years ago that was really quite difficult, due to appropriate targets, appropriate vessels. Ultimately had a ADAN graft and superficial venous graft. She has type 2 diabetes, and underlying insulin resistance, history of fatty liver. She has had ongoing weight gain and has been on insulin now for several years, post CABG. She was intolerant to many oral medications which is the reason why she was placed on insulin regimen. She was previously followed by endocrinology who initially prescribed the insulin 70/30 regimen that she is currently using. She also has a history of hypothyroidism on levothyroxine, and uses carvedilol moderate dose and Brilinta. In any event she is unwilling to use statin which she does not feel she does (more content not included)... Normal [facility] 12 Lead EKGon 01-15-2024 12 Lead EKG [facility] [address] [place] [address] 12 Lead EKG 01/15/24 0930 MR#: [id number] Acct: [id number] Name: FELICITAS ALCANTARA Rep #: [id number] : 1950 73 From: Cecilio Feliz MD Attending Dr: Status: DEP ER Ordering Dr: Nathan Pritchard DO Date: 01/15/24 Location: ED Sex: F C Admitted: Test Reason : SOB Blood Pressure : */* mmHG Vent. Rate : 72 BPM Atrial Rate : 72 BPM P-R Int : 158 ms QRS Dur : 132 ms QT Int : 434 ms P-R-T Axes : 53 -12 34 degrees QTcB Int : 475 ms Normal sinus rhythm Right bundle branch block Abnormal ECG Confirmed by CECILIO FELIZ MD ([id number]), editor sound ALLA LAINEZ ([id number]) on 01/17/2024 8:14:37 AM Referred By: JESUS/SIMONE Confirmed By: CECILIO FELIZ MD 11/01/813 Cecilio Feliz MD CC: Dr. Nathan Pritchard, DO; Dr. Harish Noel MD Signed Normal [facility] Basic Metabolic Profile (BMP )on 01-15-2024 BUN/CRE 18.8 RATIO Normal 01-[address] [facility] Comment on above: Order Comment: 1Y Performed By: #### L 100.0100, L500.2500, L300.8000, L501.4020 #### [facility] Laboratory [address] [place], [address] CA,Total 9.7 mg/dL Normal 8.5-10.[address] [facility] Comment on above: Order Comment: 1Y Performed By: #### L 100.0100, L500.2500, L300.8000, L501.4020 #### [facility] [address] [place], [address] Chloride [Moles/Vol] 101 mmol/L Normal 98-107 [facility] Comment on above: Order Comment: 1Y Performed By: #### L 100.0100, L500.2500, L300.8000, L501.4020 #### [facility] [address] [place], [address] CO2 [Moles/Vol] 28.0 mmol/L Normal 21.0-32.[address] [facility] Comment on above: Order Comment: 1Y Performed By: #### L 100.0100, L500.2500, L300.8000, L501.4020 #### [facility] [address] [place], [address] Creatinine [Mass/Vol] 0.91 mg/dL Normal 0.55-1.[address] [facility] Comment on above: Order Comment: 1Y Result Comment: The validity of the calculated GFR GFRAA in patients over 70 years has not been determined. Clinical correlation is essential. Performed By: #### L 100.0100, L500.2500, L300.8000, L501.4020 #### [facility] [address] [place], [address] ECRCL 63.57 ml/min Normal [facility] Comment on above: Order Comment: 1Y Performed By: #### L 100.0100, L500.2500, L300.8000, L501.4020 #### [facility] [address] [place], [address] EST GFR - AA 79 mL/min Normal >[address] [facility] Comment on above: Order Comment: 1Y Result Comment: Afri can Jamaican GFR Calc Performed By: #### L 100.0100, L500.2500, L300.8000, L501.4020 #### [facility] [address] [place], [address] GAP 7 Normal 5-[address] [facility] Comment on above: Order Comment: 1Y Performed By: #### L 100.0100, L500.2500, L300.8000, L501.4020 #### [facility] [address] [place], [address] GFR/1.73 sq M.predicted among non-blacks MDRD (S/P/Bld) [Vol rate/Area] 65 mL/min/{1.73_m2} Normal >[address] [facility] Comment on above: Order Comment: 1Y Result Comment: Non- GFR Calc Performed By: #### L 100.0100, L500.2500, L300.8000, L501.4020 #### [facility] [address] [place], [address] Glucose [Mass/Vol] 231 mg/dL High 74-106 [facility] Comment on above: Order Comment: 1Y Result Comment: Gluc ose result greater than or equal to 200 mg/dL suggests DIABETES MELLITUS per A.D.A. criteria. Performed By: #### L 100.0100, L500.2500, L300.8000, L501.4020 #### [facility] [address] [place], [address] Potassium [Moles/Vol] 4.3 mmol/L Normal 3.5-5.[address] [facility] Comment on above: Order Comment: 1Y Performed By: #### L 100.0100, L500.2500, L300.8000, L501.4020 #### [facility] [address] [place], [address] Sodium [Moles/Vol] 136 mmol/L Normal 136-145 [facility] Comment on above: Order Comment: 1Y Performed By: #### L 100.0100, L500.2500, L300.8000, L501.4020 #### [facility] [address] [place], [address] Urea nitrogen [Mass/Vol] 17 mg/dL Normal 7-[address] [facility] Comment on above: Order Comment: 1Y Performed By: #### L 100.0100, L500.2500, L300.8000, L501.4020 #### [facility] [address] [place], [address] CBC W/Diff, Automatedon 10-3 0-2024 Absolute Lymph 2.13 X10 3/uL Normal 0.83-4.[address] [facility] Comment on above: Performed By: #### L 100.0100, L500.2500, L300.8000, L501.4020 #### [facility] [address] [place], [address] Absolute Neut 10.5 X10 3/uL High 2.0-7.[address] [facility] Comment on above: Performed By: #### L 100.0100, L500.2500, L300.8000, L501.4020 #### [facility] [address] [place], [address] Basophils/100 WBC (Bld) 0.7 % Normal 0-1 [facility] Comment on above: Performed By: #### L 100.0100, L500.2500, L300.8000, L501.4020 #### [facility] [address] [place], [address] Eosinophils/100 WBC (Bld) 1.7 % Normal 0-[address] [facility] Comment on above: Performed By: #### L 100.0100, L500.2500, L300.8000, L501.4020 #### [facility] [address] [place], [address] Erythrocyte distribution width (RBC) [Ratio] 13.0 % Normal 11.6-14.[address] [facility] Comment on above: Performed By: #### L 100.0100, L500.2500, L300.8000, L501.4020 #### [facility] [address] [place], [address] Hematocrit (Bld) [Volume fraction] 45.9 % Normal 37-[address] [facility] Comment on above: Performed By: #### L 100.0100, L500.2500, L300.8000, L501.4020 #### [facility] [address] [place], [address] Hemoglobin (Bld) [Mass/Vol] 15.2 g/dL High 12.0-15.[address] [facility] Comment on above: Performed By: #### L 100.0100, L500.2500, L300.8000, L501.4020 #### [facility] [address] [place], [address] IG% 1.100 High 0.0-0.[address] [facility] Comment on above: Result Comment: IG% - Immature Granulocytes (promyelocytes, myelocytes and metamyelocytes) > 1% indicates that a LEFT SHIFT is Present. Performed By: #### L 100.0100, L500.2500, L300.8000, L501.4020 #### [facility] [address] [place], [address] Lymphocytes/100 WBC (Bld) 15.1 % Low 19-[address] [facility] Comment on above: Performed By: #### L 100.0100, L500.2500, L300.8000, L501.4020 #### [facility] [address] [place], [address] MCH (RBC) [Entitic mass] 29.9 pg Normal 27.0-32.[address] [facility] Comment on above: Performed By: #### L 100.0100, L500.2500, L300.8000, L501.4020 #### [facility] [address] [place], [address] MCHC (RBC) [Mass/Vol] 33.1 g/dL Normal 32-[address] [facility] Comment on above: Performed By: #### L 100.0100, L500.2500, L300.8000, L501.4020 #### [facility] [address] [place], [address] MCV (RBC) [Entitic vol] 90.2 fL Normal 81-99 [facility] Comment on above: Performed By: #### L 100.0100, L500.2500, L300.8000, L501.4020 #### [facility] [address] [place], [address] Monocytes/100 WBC (Bld) 6.7 % Normal 0-10 [facility] Comment on above: Performed By: #### L 100.0100, L500.2500, L300.8000, L501.4020 #### [facility] [address] [place], [address] Neutrophils/100 WBC (Bld) 74.7 % High 47-[address] [facility] Comment on above: Performed By: #### L 100.0100, L500.2500, L300.8000, L501.4020 #### [facility] [address] [place], [address] Nucleated RBC (Bld) [#/Vol] 0 10*3/uL Normal 0-[address] [facility] Comment on above: Performed By: #### L 100.0100, L500.2500, L300.8000, L501.4020 #### [facility] [address] [place], [address] Platelet mean volume (Bld) [Entitic vol] 10.7 fL Normal 6.2-12.[address] [facility] Comment on above: Performed By: #### L 100.0100, L500.2500, L300.8000, L501.4020 #### [facility] [address] [place], [address] Platelets (Bld) [#/Vol] 348 10*3/uL Normal 150-[address] [facility] Comment on above: Performed By: #### L 100.0100, L500.2500, L300.8000, L501.4020 #### [facility] [address] [place], [address] RBC (Bld) [#/Vol] 5.09 10*6/uL Normal 4.2-5.4 [facility] Comment on above: Performed By: #### L 100.0100, L500.2500, L300.8000, L501.4020 #### [facility] [address] [place], [address] RDW SD 42.7 fl Normal 35.1-43.[address] [facility] Comment on above: Performed By: #### L 100.0100, L500.2500, L300.8000, L501.4020 #### [facility] [address] [place], [address] WBC (Bld) [#/Vol] 14.1 10*3/uL High 4.4-11.0 [facility] Comment on above: Performed By: #### L 100.0100, L500.2500, L300.8000, L501.4020 #### [facility] [address] [place], [address] Chest 1 View (Portable)on Chest 1 View (Portable) [facility] Imaging Services [address] [place] [address] Chest 1 View (Portable) MR#: [id number] Acct: [id number] Name: FELICITAS ALCANTARA Rep #: [id number] : 1950 F 73 From: Hemanth Quinn MD PCP: Dr. Harish Noel MD Status: REG ER Study: Chest 1 View (Portable) Date of Exam: 01/15/24 Exam# [id number] Ordering Dr: Nathan Pritchard DO [id number] EXAM: XR CHEST, 1 VIEW CLINICAL INDICATION: chest pain TECHNIQUE: Frontal view of the chest. COMPARISON: 09/03/2023. FINDINGS: LUNGS AND PLEURAL SPACES: Unremarkable. No consolidation or edema. No pneumothorax. No effusion. HEART: Mild cardiomegaly. MEDIASTINUM: Central airways and mediastinal contour are unremarkable. BONES/JOINTS: Intact sternal wires. No acute fracture. SOFT TISSUES: Unremarkable. RAD/Chest 1 View (Portable) IMPRESSION: No acute findings in the chest and unchanged. Electronically Signed: Hemanth Quinn MD at 11:20 EDT , CC: Dr. Nathan Pritchard DO; Dr. Harish Noel MD Residential Team Leader: Signed Normal [facility] Emergency Department Summary on 01-15-2024 Emergency Department Summary [facility] Medical Records Department [address] [place] [address] Emergency Department Summary 01/15/24 MR#: [id number] Acct: [id number] Name: FELICITAS ALCANTARA Rep #: [id number] : 1950 73 From: Nathan Pritchard DO PCP: Dr. Harish Noel MD Status:DEP ER Location: ED HPI History of Present Illness Chief Complaint: Shortness of Breath Informant: patient Onset/Context/Timing Onset: Yesterday Context: gradual Timing: Continuous Quality: Positive for Dyspnea on exertion and Orthopnea Worsened by: Exertion and Lying flat Relieved by: Nothing Associated Symptoms subjective and chills; Negative for cough, rhinorrhea, post nasal drip, ear pain, fever, sore throat, clear sputum, white sputum, yellow sputum or green sputum Chest Pain: Positive for Dull and Aching Narrative Narrative: Patient presents with shortness of breath that began yesterday. Patient states it is gradually getting worse. Patient states it is worse with laying flat and with any exertion. Patient states nothing seems to help with it. Patient states she has had similar symptoms in the past which have been helped with aerosols and inhalers. Patient admits to some subjective chills but denies any fevers. Patient admits to some mild pain in the substernal area. Patient describes it as dull and aching. Patient denies any neck or back pain. Patient denies any nausea or vomiting. Patient admits to history of DVT when she was . Patient does not take any anticoagulants and has not had a DVT in many years. PE Risk Factors: Positive for Prior DVT or PE; Negative for Cancer, OCP + Smoking + > 35, Recent immobilization, Recent surgery or Recent travel Prior similar symptoms: Yes PFSH PFSH Medical History History of left heart catheterization (LHC) ( 09/05/21) Abnormal nuclear stress test Dyspnea on exertion Mass of lip Elevated WBC count History of DVT (deep vein thrombosis) Presence of stent in coronary artery ( 04/10/16) History of non-ST elevation myocardial infarction (NSTEMI) Cardiogenic shock Type 2 diabetes mellitus 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 Essential hypertension Carpal tunnel syndrome Hyperlipemia Hypertension Hypothyroidism History of pneumonia IBS (irritable bowel syndrome) Diabetes Home Medications ???Medication ???Instructions ???Recorded ???Last Taken ???Type levothyroxine 112 mcg tablet 112 mcg PO DAILY #90 tabs 10/01/22 Unknown Rx clopidogrel 75 mg tablet 75 mg PO DAILY #90 tabs 01/28/23 Unknown Rx insulin NPH-regular 70-30 U-100 See Rx Instructions subcut QAM #15 06/25/23 Unknown Rx insulin 100 unit/mL subcutaneous mL pen carvedilol 25 mg tablet 25 mg PO BID #60 tabs 12/16/23 Unknown Rx Allergy/AdvReac Type Severity Reaction Status Date / Time alogliptin Allergy Hives Verified 01/15/24 09:25 dulaglutide (From Trulicity) Allergy Hives Verified 01/15/24 09:25 glipizide Allergy Hives Verified 01/15/24 09:25 metformin Allergy Hives Verified 01/15/24 09:25 Penicillins (PCN) Allergy Hives Verified 01/15/24 09:25 aspirin AdvReac Severe blood Verified 01/15/24 09:25 clots canagliflozin (From Invokana) AdvReac Severe abdominal Verified 01/15/24 09:25 pain Family History Sister Breast cancer Mother Hypertension Heart disease Myocardial infarction, Onset Age: 61 Thyroid disorder Grandmother Arthritis Seizures Father CVA (cerebral vascular accident) Brother Heart disease Myocardial infarction Sister CAD (coronary artery disease) Surgical History Hx of heart bypass surgery History of coronary artery bypass surgery ( 11/23/21) History of excision of mass ( 07/2020) Presence of coronary angioplasty implant and graft ( 04/10/16) History of tubal ligation History of hysterectomy History of tonsillectomy Social History household members: none Smoking Status: Former smoker how long ago did patient quit smokin12/2015 alcohol intake: never substance use type: does not use caffeine: Yes Type: coffee Number of servings: 1 frequency: 1-2 times per week ROS ROS ED Constitutional Constitutional ED: Denies chills or fever(s) Eyes Eyes: Denies blurry vision or change in vision ENT ENT ED: Denies rhinorrhea or sore throat Cardiovascular Cardiovascular: Reports chest pain; Denies palpitations Respiratory/Chest Respiratory/Chest: Reports dyspnea; Denies cough Gastrointestinal Gastrointestinal: Denies nausea or vomiting Genitourinary Genitourinary ED: Denies dysuria or hematuria Musculoskeletal Musculoskeletal: Denies ba (more content not included)... Normal [facility] L501.4020on 01-15-2024 TROPONIN-I HS 9 pg/mL Normal 3.0-54.[address] [facility] Comment on above: Result Comment: Plea se Note: New Test Units and Gender Specific Reference Ranges. For more information see Policy Stat Procedure [place] High Sensitivity Troponin (TNIH) and attachments. Performed By: #### L 400.0001 #### [facility] Laboratory [address] [place], [address] L501.5425on 01-15-2024 TROPONIN-I HS 10 pg/mL Normal 3.0-54.[address] [facility] Comment on above: Order Comment: 1Y Result Comment: Plea se Note: New Test Units and Gender Specific Reference Ranges. For more information see Policy Stat Procedure B[place]e High Sensitivity Troponin (TNIH) and attachments. Performed By: #### L 100.0100, L500.2500, L300.8000, L501.4020 #### [facility] [address] [place], [address] 12 Lead EKGon 09-03-2023 12 Lead EKG [facility] Cardiovascular Services [address] [place] [address] 12 Lead EKG 09/02/23 1636 MR#: [id number] Acct: [id number] Name: FELICITAS ALCANTARA Rep #: [id number] : 1950 72 From: Cecilio Feliz MD Attending Dr: Status: DEP ER Ordering Dr: Ravi Lamb MD Date: 09/03/23 Location: ED Sex: F C Admitted: Test Reason : SOB Blood Pressure : / mmHG Vent. Rate : 072 BPM Atrial Rate : 072 BPM P-R Int : 166 ms QRS Dur : 134 ms QT Int : 442 ms P-R-T Axes : 059 -07 058 degrees QTc Int : 483 ms Normal sinus rhythm Right bundle branch block Abnormal ECG Confirmed by CECILIO FELIZ MD ([id number]), ALLA Vincent ([id number]) on 09/03/2023 11:26:35 AM Referred By: Confirmed By:CECILIO FELIZ MD 09/03/23 1126 Date Cecilio Feliz MD CC: Dr. Ravi Lamb MD; Dr. Harish Noel MD Signed [facility] 12 Lead EKG [facility] Cardiovascular Services [address] [place] [address] 12 Lead EKG 09/03/23 0638 MR#: [id number] Acct: [id number] Name: FELICITAS ALCANTARA Rep #: [id number] : 1950 72 From: Cecilio Feliz MD Attending Dr: Status: DEP ER Ordering Dr: Ravi Lamb MD Date: 09/03/23 Location: ED Sex: F C Admitted: Test Reason : SOB Blood Pressure : / mmHG Vent. Rate : 090 BPM Atrial Rate : 090 BPM P-R Int : 150 ms QRS Dur : 130 ms QT Int : 442 ms P-R-T Axes : 053 -06 062 degrees QTc Int : 540 ms Sinus rhythm with Premature atrial complexes Possible Left atrial enlargement Right bundle branch block Abnormal ECG Confirmed by CECILIO FELIZ MD ([id number]), ALLA Vincent ([id number]) on 09/05/2023 8:13:25 AM Referred By: JA Confirmed By:CECILIO FELIZ MD 09/05/23 0813 Date Cecilio Feliz MD CC: Dr. Ravi Lamb MD; Dr. Harish Noel MD Signed [facility] Abdomen/Pelvis W IV Cont ONL Yon 09-03-2023 Abdomen/Pelvis W IV Cont ONLY [facility] Imaging Services [address] [place], [place] [address] Abdomen/Pelvis W IV Cont ONLY MR#: [id number] Acct: [id number] Name: FELICITAS ALCANTARA Rep #: [id number] : 1950 F 72 From: Roel lopez MD PCP: Dr. Harish Noel MD Status: REG ER Study: Abdomen/Pelvis W IV Cont ONLY Date of Exam: Exam# [id number] Ordering Dr: Ravi Lamb MD [id number] STUDY: CT ABDOMEN AND PELVIS WITH CONTRAST REASON FOR EXAM: Female, 72 years old. LLQ abd pain. Diarrhea. Shortness of breath. RADIATION DOSAGE (If Supplied By Facility): CTDIvol = ( 15.38 ) mGy, DLP = ( 1256.19 ) mGycm TECHNIQUE: Transaxial images were obtained from the dome of the diaphragm to the symphysis pubis without oral contrast. IV 100mL Isovue-300 was administered. Sagittal and coronal images were reconstructed. Individualized dose optimization techniques were used for this CT. COMPARISON: None. FINDINGS: Mild degree of increased linear markings at the lung bases suggestive of mild atelectasis and/or scarring. Prior CABG. Coronary calcification. There is decreased attenuation of the liver consistent with steatosis. Normal gallbladder and extrahepatic biliary system. Normal spleen. Normal pancreas. Normal bilateral adrenal glands. Normal right kidney. Normal left kidney. Normal visualized stomach. Normal small intestine. There are multiple colonic diverticula consistent with diverticulosis. The appendix is visualized and appears normal. There is diffuse atherosclerotic calcification of the abdominal aorta, without a demonstrated aneurysm. Normal inferior vena cava. There is a small retroperitoneal lymphadenopathy with enlarged nodes no greater than 10mm in the short axis diameter. Normal urinary bladder. There is absence of the uterus consistent with a prior hysterectomy. There is a small umbilical hernia containing fat. There are mild degenerative changes of the visualized lumbar spine. CT/Abdomen/Pelvis W IV Cont ONLY IMPRESSION: Sigmoid diverticulosis without evidence of acute diverticulitis at this time. Fatty infiltration of the liver. Electronically Signed: Roel Moreno MD at 8:32 EDT , CC: Dr. Ravi Lamb MD; Dr. Harish Noel MD Residential Team Leader: Signed Normal [facility] Basic Metabolic Profile (BMP )on 09-03-2023 BUN/CRE 18.8 RATIO Normal 10-[address] [facility] Comment on above: Order Comment: MAURISIO CTOR TO SPECIFY Performed By: #### L 400.0001 #### [facility] Laboratory [address] [place], [address] CA,Total 9.7 mg/dL Normal 8.5-10.[address] [facility] Comment on above: Order Comment: MAURISIO CTOR TO SPECIFY Performed By: #### L 400.0001 #### [facility] [address] [place], [address] Chloride [Moles/Vol] 98 mmol/L Normal 98-107 [facility] Comment on above: Order Comment: MAURISIO CTOR TO SPECIFY Performed By: #### L 400.0001 #### [facility] [address] [place], [address] CO2 [Moles/Vol] 26.0 mmol/L Normal 21.0-32.[address] [facility] Comment on above: Order Comment: MAURISIO CTOR TO SPECIFY Performed By: #### L 400.0001 #### [facility] [address] [place], [address] Creatinine [Mass/Vol] 0.90 mg/dL Normal 0.55-1.[address] [facility] Comment on above: Order Comment: COLLE CTOR TO SPECIFY Result Comment: The validity of the calculated GFR GFRAA in patients over 70 years has not been determined. Clinical correlation is essential. Performed By: #### L 400.0001 #### [facility] [address] [place], [address] ECRCL 64.13 ml/min Normal [facility] Comment on above: Order Comment: MAURISIO DISLAOR TO SPECIFY Performed By: #### L 400.0001 #### [facility] [address] [place], [address] EST GFR - AA 79 mL/min Normal >[address] [facility] Comment on above: Order Comment: MAURISIO DISLAOR TO SPECIFY Result Comment: Afri can Jamaican GFR Calc Performed By: #### L 400.0001 #### [facility] [address] [place], [address] GAP 7 Normal 5-[address] [facility] Comment on above: Order Comment: MAURISIO WHITE TO SPECIFY Performed By: #### L 400.0001 #### [facility] [address] [place], [address] GFR/1.73 sq M.predicted among non-blacks MDRD (S/P/Bld) [Vol rate/Area] 65 mL/min/{1.73_m2} Normal >[address] [facility] Comment on above: Order Comment: MAURISIO WHITE TO SPECIFY Result Comment: Non- GFR Calc Performed By: #### L 400.0001 #### [facility] [address] [place], [address] Glucose [Mass/Vol] 278 mg/dL High 74-106 [facility] Comment on above: Order Comment: MAURISIO DISLAOR TO SPECIFY Result Comment: Gluc ose result greater than or equal to 200 mg/dL suggests DIABETES MELLITUS per A.D.A. criteria. Performed By: #### L 400.0001 #### [facility] [address] [place], [address] Potassium [Moles/Vol] 4.1 mmol/L Normal 3.5-5.[address] [facility] Comment on above: Order Comment: MAURISIO CTOR TO SPECIFY Performed By: #### L 400.0001 #### [facility] [address] [place], [address] Sodium [Moles/Vol] 131 mmol/L Low 136-145 [facility] Comment on above: Order Comment: COLLE CTOR TO SPECIFY Performed By: #### L 400.0001 #### [facility] [address] [place], [address] Urea nitrogen [Mass/Vol] 17 mg/dL Normal 7-[address] [facility] Comment on above: Order Comment: COLLE CTOR TO SPECIFY Performed By: #### L 400.0001 #### [facility] [address] [place], [address] Bedside Glucoseon 09-03-2023 FINGERSTICK GLU 295 mg/dL High 74-[address] [facility] Comment on above: Result Comment: RIMMA ADRIAN OF PATIENT CARE PER NURSING PROTOCOL Performed By: #### L 100.0100, L500.2500, L300.8000, L501.4020 #### [facility] [address] [place], [address] CBC W/Diff, Automatedon - Absolute Lymph 2.10 X10 3/uL Normal 0.83-4.[address] [facility] Comment on above: Performed By: #### L 400.0001 #### [facility] [address] [place], [address] Absolute Neut 15.2 X10 3/uL High 2.0-7.[address] [facility] Comment on above: Performed By: #### L 400.0001 #### [facility] [address] [place], [address] Basophils/100 WBC (Bld) 0.4 % Normal 0-1 [facility] Comment on above: Performed By: #### L 400.0001 #### [facility] [address] [place], [address] Eosinophils/100 WBC (Bld) 0.4 % Normal 0-[address] [facility] Comment on above: Performed By: #### L 400.0001 #### [facility] [address] [place], [address] Erythrocyte distribution width (RBC) [Ratio] 12.8 % Normal 11.6-14.[address] [facility] Comment on above: Performed By: #### L 400.0001 #### [facility] [address] [place], [address] Hematocrit (Bld) [Volume fraction] 50.1 % High 37-[address] [facility] Comment on above: Performed By: #### L 400.0001 #### [facility] [address] [place], [address] Hemoglobin (Bld) [Mass/Vol] 16.0 g/dL High 12.0-15.[address] [facility] Comment on above: Performed By: #### L 400.0001 #### [facility] [address] [place], [address] IG% 0.700 Normal 0.0-0.[address] [facility] Comment on above: Result Comment: IG% - Immature Granulocytes (promyelocytes, myelocytes and metamyelocytes) > 1% indicates that a LEFT SHIFT is Present. Performed By: #### L 400.0001 #### [facility] [address] [place], [address] Lymphocytes/100 WBC (Bld) 11.4 % Low 19-[address] [facility] Comment on above: Performed By: #### L 400.0001 #### [facility] [address] [place], [address] MCH (RBC) [Entitic mass] 29.1 pg Normal 27.0-32.[address] [facility] Comment on above: Performed By: #### L 400.0001 #### [facility] [address] [place], [address] MCHC (RBC) [Mass/Vol] 31.9 g/dL Low 32-[address] [facility] Comment on above: Performed By: #### L 400.0001 #### [facility] [address] [place], [address] MCV (RBC) [Entitic vol] 91.1 fL Normal 81-99 [facility] Comment on above: Performed By: #### L 400.0001 #### [facility] [address] [place], [address] Monocytes/100 WBC (Bld) 4.8 % Normal 0-10 [facility] Comment on above: Performed By: #### L 400.0001 #### [facility] [address] [place], [address] Neutrophils/100 WBC (Bld) 82.3 % High 47-[address] [facility] Comment on above: Performed By: #### L 400.0001 #### [facility] [address] [place], [address] Nucleated RBC (Bld) [#/Vol] 0 10*3/uL Normal 0-[address] [facility] Comment on above: Performed By: #### L 400.0001 #### [facility] [address] [place], [address] Platelet mean volume (Bld) [Entitic vol] 10.7 fL Normal 6.2-12.[address] [facility] Comment on above: Performed By: #### L 400.0001 #### [facility] [address] [place], [address] Platelets (Bld) [#/Vol] 333 10*3/uL Normal 150-[address] [facility] Comment on above: Performed By: #### L 400.0001 #### [facility] [address] [place], [address] RBC (Bld) [#/Vol] 5.50 10*6/uL High 4.2-5.4 [facility] Comment on above: Performed By: #### L 400.0001 #### [facility] [address] [place], [address] RDW SD 42.5 fl Normal 35.1-43.[address] [facility] Comment on above: Performed By: #### L 400.0001 #### [facility] [address] [place], [address] WBC (Bld) [#/Vol] 18.4 10*3/uL High 4.4-11.0 [facility] Comment on above: Performed By: #### L 400.0001 #### [facility] [address] [place], [address] Chest 1 View (Portable)on Chest 1 View (Portable) [facility] Imaging Services [address] [place] [address] Chest 1 View (Portable) MR#: [id number] Acct: [id number] Name: FELICITAS ALCANTARA Rep #: [id number] : 1950 F 72 From: Roel lopez MD PCP: Dr. Harish Noel MD Status: [facility] ER Study: Chest 1 View (Portable) Date of Exam: 09/03/23 Exam# [id number] Ordering Dr: Ravi Lamb [place] [id number] STUDY: X-RAY CHEST REASON FOR EXAM: Female, 72 years old. Chest pain TECHNIQUE: Single AP portable view of the chest. COMPARISON: Comparison is made with prior study dated September 02, 2023. FINDINGS: EKG electrodes are seen. The lungs are clear and expanded. There is no demonstrated pleural abnormality. Sternal cerclage wires and vascular clips are present from a prior sternotomy and coronary artery bypass graft procedure (CABG). Normal mediastinum and yris. Normal visualized pulmonary arteries. Normal visualized aortic arch and descending thoracic aorta. Normal visualized thoracic spine. Normal visualized ribs, clavicles, and shoulders. There is no demonstrated abnormality of the visualized soft tissue structures of the upper abdomen. RAD/Chest 1 View (Portable) IMPRESSION: Status post CABG. No acute abnormality is seen. Electronically Signed: Roel Moreno MD at 8:33 EDT Reading Location ID and State: [address] [place] [address] , Service support , CC: Dr. Ravi Lamb MD; Dr. Harish Noel MD Residential Team Leader: Signed Normal [facility] Emergency Department Summary on 09-03-2023 Emergency Department Summary [facility] Medical Records Department [address] [place] [address] Emergency Department Summary 09/03/23 MR#: [id number] Acct: [id number] Name: FELICITAS ALCANTARA Rep #: [id number] : 1950 72 From: Ravi Lamb MD PCP: Dr. Harish Noel MD Status:DEP ER Location: ED HPI HPI - GI History of Present Illness Chief Complaint: Shortness of Breath Informant: patient Abdominal Pain/Flank Pain Onset: Today and Yesterday Context: Gradual Onset Timing: Continuous Current Severity: Mild Maximum Severity: Mild Nausea/Vomiting/Emesis GI Symptom: Positive for Nausea and Vomiting Onset: Today and Yesterday Severity: Mild Diarrhea/Melena/Hemato chezia GI Symptom: Positive for Diarrhea Onset: Today and Yesterday Stool Quality: Positive for Loose Severity: Mild Associated Symptoms Associated Symptoms: Negative for Dysuria, Frequency, Hematuria or Urgency Narrative Narrative: 72-year-old female history of diabetes, CAD with stent and prior CABG. Says she just was not feeling well yesterday. She has had nausea vomiting and diarrhea. States she has had left lower quadrant abdominal pain. And she is just felt short of breath. Some very minimal chest discomfort. Shortness of breath is worse with exertion. She denies any fever. Denies any dysuria. She was actually in the emergency department yesterday had to leave due to family issues and signed out AGAINST MEDICAL ADVICE. Prior similar symptoms: Yes Recent Illness/Hospitalizatio n: No PFSH PFSH Medical History History of left heart catheterization (LHC) ( 09/05/21) Abnormal nuclear stress test Dyspnea on exertion Mass of lip Elevated WBC count History of DVT (deep vein thrombosis) Presence of stent in coronary artery ( 04/10/16) History of non-ST elevation myocardial infarction (NSTEMI) Cardiogenic shock Type 2 diabetes mellitus 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 Essential hypertension Carpal tunnel syndrome Hyperlipemia Hypertension Hypothyroidism History of pneumonia IBS (irritable bowel syndrome) Diabetes Home Medications ???Medication ???Instructions ???Recorded ???Last Taken ???Type levothyroxine 112 mcg tablet 112 mcg PO DAILY #90 tabs 10/01/22 Unknown Rx clopidogrel 75 mg tablet 75 mg PO DAILY #90 tabs 01/28/23 Unknown Rx insulin NPH-regular 70-30 U-100 See Rx Instructions subcut QAM #15 06/25/23 Unknown Rx insulin 100 unit/mL subcutaneous mL pen carvedilol 25 mg tablet 25 mg PO BID #60 tabs 07/18/23 Unknown Rx Allergy/AdvReac Type Severity Reaction Status Date / Time alogliptin Allergy Hives Verified 09/03/23 06:31 dulaglutide (From Trulicity) Allergy Hives Verified 09/03/23 06:31 glipizide Allergy Hives Verified 09/03/23 06:31 metformin Allergy Hives Verified 09/03/23 06:31 Penicillins (PCN) Allergy Hives Verified 09/03/23 06:31 aspirin AdvReac Severe blood Verified 09/03/23 06:31 clots canagliflozin (From Invokana) AdvReac Severe abdominal Verified 09/03/23 06:31 pain Family History Sister Breast cancer Mother Hypertension Heart disease Myocardial infarction, Onset Age: 61 Thyroid disorder Grandmother Arthritis Seizures Father CVA (cerebral vascular accident) Brother Heart disease Myocardial infarction Sister CAD (coronary artery disease) Surgical History Hx of heart bypass surgery History of coronary artery bypass surgery ( 11/23/21) History of excision of mass ( 07/2020) Presence of coronary angioplasty implant and graft ( 04/10/16) History of tubal ligation History of hysterectomy History of tonsillectomy Social History household members: none Smoking Status: Former smoker how long ago did patient quit smokin12/2015 alcohol intake: never substance use type: does not use caffeine: Yes Type: coffee Number of servings: 1 frequency: 1-2 times per week ROS ROS ED ROS Narrative Nausea, vomiting diarrhea. Shortness of breath. Review of Systems ROS Unobtainable: Denies due to encephalopathy Constitutional Constitutional ED: Denies chills or fever(s) ENT ENT ED: Denies ear pain Cardiovascular Cardiovascular: Denies chest pain or palpitations Respiratory/Chest Respiratory/Chest: Reports dyspnea; Denies cough Gastrointestinal Gastrointestinal: Reports abdominal pain, diarrhea, nausea and vomiting; Denies constipation or melena Genitourinary Genitourinary ED: Denies dysuria or hematuria Musculoskeletal Musculoskeletal: Denies arthralgias Integumentary Denies abscess Neurologic Neurologic: Denies headache(s) Psychiatric Psyc (more content not included)... Normal [facility] L501.4020on 09-03-2023 TROPONIN-I HS 14 pg/mL Normal 3.0-54.[address] [facility] Comment on above: Order Comment: 'TROP ' Serial specimen #1, #2 or #3: 1 Result Comment: Plea se Note: New Test Units and Gender Specific Reference Ranges. For more information see Policy Stat Procedure [place]e High Sensitivity Troponin (TNIH) and attachments. Performed By: #### L 100.0100, L500.2500, L300.8000, L501.4020 #### [facility] [address] [place], [address] Urinalysis, Completeon 09-02 BACTERIA 2+ /hpf Normal None Seen [facility] Comment on above: Order Comment: MAURISIO CTOR TO SPECIFY Performed By: #### L 400.0001 #### [facility] [address] [place], [address] EPI,SQUAMOUS 0-5 SEEN Normal 5-[address] [facility] Comment on above: Order Comment: MAURISIO CTOR TO SPECIFY Performed By: #### L 400.0001 #### [facility] [address] [place], [address] WBC 0-5 SEEN Normal 0-[address] [facility] Comment on above: Order Comment: MAURISIO CTOR TO SPECIFY Performed By: #### L 400.0001 #### [facility] [address] [place], [address] Mucus Ql (Urine sed) 0 SEEN Normal [facility] Comment on above: Order Comment: MAURISIO CTOR TO SPECIFY Performed By: #### L 400.0001 #### [facility] [address] [place], [address] RBC 0 SEEN Normal 0-[address] [facility] Comment on above: Order Comment: MAURISIO CTOR TO SPECIFY Performed By: #### L 400.0001 #### [facility] [address] [place], [address] Basic Metabolic Profile (BMP )on 09-02-2023 BUN/CRE 20.0 RATIO Normal 10-[address] [facility] Comment on above: Order Comment: 'TROP ' Serial specimen #1, #2 or #3: 1 Performed By: #### L 100.0100, L500.2500, L300.8000, L501.4020 #### [facility] [address] [place], [address] CA,Total 9.4 mg/dL Normal 8.5-10.[address] [facility] Comment on above: Order Comment: 'TROP ' Serial specimen #1, #2 or #3: 1 Performed By: #### L 100.0100, L500.2500, L300.8000, L501.4020 #### [facility] [address] [place], [address] Chloride [Moles/Vol] 101 mmol/L Normal 98-107 [facility] Comment on above: Order Comment: 'TROP ' Serial specimen #1, #2 or #3: 1 Performed By: #### L 100.0100, L500.2500, L300.8000, L501.4020 #### [facility] [address] [place], [address] CO2 [Moles/Vol] 27.0 mmol/L Normal 21.0-32.[address] [facility] Comment on above: Order Comment: 'TROP ' Serial specimen #1, #2 or #3: 1 Performed By: #### L 100.0100, L500.2500, L300.8000, L501.4020 #### [facility] [address] [place], [address] Creatinine [Mass/Vol] 0.95 mg/dL Normal 0.55-1.[address] [facility] Comment on above: Order Comment: 'TROP ' Serial specimen #1, #2 or #3: 1 Result Comment: The validity of the calculated GFR GFRAA in patients over 70 years has not been determined. Clinical correlation is essential. Performed By: #### L 100.0100, L500.2500, L300.8000, L501.4020 #### [facility] [address] [place], [address] ECRCL 61.67 ml/min Normal [facility] Comment on above: Order Comment: 'TROP ' Serial specimen #1, #2 or #3: 1 Performed By: #### L 100.0100, L500.2500, L300.8000, L501.4020 #### [facility] [address] [place], [address] EST GFR - AA 74 mL/min Normal >[address] [facility] Comment on above: Order Comment: 'TROP ' Serial specimen #1, #2 or #3: 1 Result Comment: Afri can Jamaican GFR Calc Performed By: #### L 100.0100, L500.2500, L300.8000, L501.4020 #### [facility] [address] [place], [address] GAP 8 Normal 5-[address] [facility] Comment on above: Order Comment: 'TROP ' Serial specimen #1, #2 or #3: 1 Performed By: #### L 100.0100, L500.2500, L300.8000, L501.4020 #### [facility] [address] [place], [address] GFR/1.73 sq M.predicted among non-blacks MDRD (S/P/Bld) [Vol rate/Area] 62 mL/min/{1.73_m2} Normal >[address] [facility] Comment on above: Order Comment: 'TROP ' Serial specimen #1, #2 or #3: 1 Result Comment: Non- GFR Calc Performed By: #### L 100.0100, L500.2500, L300.8000, L501.4020 #### [facility] [address] [place], [address] Glucose [Mass/Vol] 276 mg/dL High 74-106 [facility] Comment on above: Order Comment: 'TROP ' Serial specimen #1, #2 or #3: 1 Result Comment: Gluc ose result greater than or equal to 200 mg/dL suggests DIABETES MELLITUS per A.D.A. criteria. Performed By: #### L 100.0100, L500.2500, L300.8000, L501.4020 #### [facility] [address] [place], [address] Potassium [Moles/Vol] 4.2 mmol/L Normal 3.5-5.[address] [facility] Comment on above: Order Comment: 'TROP ' Serial specimen #1, #2 or #3: 1 Performed By: #### L 100.0100, L500.2500, L300.8000, L501.4020 #### [facility] [address] [place], [address] Sodium [Moles/Vol] 136 mmol/L Normal 136-145 [facility] Comment on above: Order Comment: 'TROP ' Serial specimen #1, #2 or #3: 1 Performed By: #### L 100.0100, L500.2500, L300.8000, L501.4020 #### [facility] [address] [place], [address] Urea nitrogen [Mass/Vol] 19 mg/dL High 7-[address] [facility] Comment on above: Order Comment: 'TROP ' Serial specimen #1, #2 or #3: 1 Performed By: #### L 100.0100, L500.2500, L300.8000, L501.4020 #### [facility] [address] [place], [address] CBC W/Diff, Automatedon 06-1 -2023 Absolute Lymph 1.95 X10 3/uL Normal 0.83-4.[address] [facility] Comment on above: Performed By: #### L 100.0100, L500.2500, L300.8000, L501.4020 #### [facility] [address] [place], [address] Absolute Neut 10.4 X10 3/uL High 2.0-7.[address] [facility] Comment on above: Performed By: #### L 100.0100, L500.2500, L300.8000, L501.4020 #### [facility] [address] [place], [address] Basophils/100 WBC (Bld) 0.6 % Normal 0-1 [facility] Comment on above: Performed By: #### L 100.0100, L500.2500, L300.8000, L501.4020 #### [facility] [address] [place], [address] Eosinophils/100 WBC (Bld) 2.0 % Normal 0-[address] [facility] Comment on above: Performed By: #### L 100.0100, L500.2500, L300.8000, L501.4020 #### [facility] [address] [place], [address] Erythrocyte distribution width (RBC) [Ratio] 12.8 % Normal 11.6-14.[address] [facility] Comment on above: Performed By: #### L 100.0100, L500.2500, L300.8000, L501.4020 #### [facility] [address] [place], [address] Hematocrit (Bld) [Volume fraction] 46.8 % Normal 37-[address] [facility] Comment on above: Performed By: #### L 100.0100, L500.2500, L300.8000, L501.4020 #### [facility] [address] [place], [address] Hemoglobin (Bld) [Mass/Vol] 15.1 g/dL High 12.0-15.[address] [facility] Comment on above: Performed By: #### L 100.0100, L500.2500, L300.8000, L501.4020 #### [facility] [address] [place], [address] IG% 0.700 Normal 0.0-0.[address] [facility] Comment on above: Result Comment: IG% - Immature Granulocytes (promyelocytes, myelocytes and metamyelocytes) > 1% indicates that a LEFT SHIFT is Present. Performed By: #### L 100.0100, L500.2500, L300.8000, L501.4020 #### [facility] [address] [place], [address] Lymphocytes/100 WBC (Bld) 14.3 % Low 19-[address] [facility] Comment on above: Performed By: #### L 100.0100, L500.2500, L300.8000, L501.4020 #### [facility] [address] [place], [address] MCH (RBC) [Entitic mass] 29.2 pg Normal 27.0-32.[address] [facility] Comment on above: Performed By: #### L 100.0100, L500.2500, L300.8000, L501.4020 #### [facility] [address] [place], [address] MCHC (RBC) [Mass/Vol] 32.3 g/dL Normal 32-[address] [facility] Comment on above: Performed By: #### L 100.0100, L500.2500, L300.8000, L501.4020 #### [facility] [address] [place], [address] MCV (RBC) [Entitic vol] 90.3 fL Normal 81-99 [facility] Comment on above: Performed By: #### L 100.0100, L500.2500, L300.8000, L501.4020 #### [facility] [address] [place], [address] Monocytes/100 WBC (Bld) 6.0 % Normal 0-10 [facility] Comment on above: Performed By: #### L 100.0100, L500.2500, L300.8000, L501.4020 #### [facility] [address] [place], [address] Neutrophils/100 WBC (Bld) 76.4 % High 47-[address] [facility] Comment on above: Performed By: #### L 100.0100, L500.2500, L300.8000, L501.4020 #### [facility] [address] [place], [address] Nucleated RBC (Bld) [#/Vol] 0 10*3/uL Normal 0-[address] [facility] Comment on above: Performed By: #### L 100.0100, L500.2500, L300.8000, L501.4020 #### [facility] [address] [place], [address] Platelet mean volume (Bld) [Entitic vol] 10.8 fL Normal 6.2-12.[address] [facility] Comment on above: Performed By: #### L 100.0100, L500.2500, L300.8000, L501.4020 #### [facility] [address] [place], [address] Platelets (Bld) [#/Vol] 309 10*3/uL Normal 150-[address] [facility] Comment on above: Performed By: #### L 100.0100, L500.2500, L300.8000, L501.4020 #### [facility] [address] [place], [address] RBC (Bld) [#/Vol] 5.18 10*6/uL Normal 4.2-5.4 [facility] Comment on above: Performed By: #### L 100.0100, L500.2500, L300.8000, L501.4020 #### [facility] [address] [place], [address] RDW SD 42.4 fl Normal 35.1-43.[address] [facility] Comment on above: Performed By: #### L 100.0100, L500.2500, L300.8000, L501.4020 #### [facility] [address] [place], [address] WBC (Bld) [#/Vol] 13.6 10*3/uL High 4.4-11.0 [facility] Comment on above: Performed By: #### L 100.0100, L500.2500, L300.8000, L501.4020 #### [facility] [address] [place], [address] Chest PA and Lateralon 09-01 Chest PA and Lateral [facility] Imaging Services [address] [place] [address] Chest PA and Lateral MR#: [id number] Acct: [id number] Name: FELICITAS ALCANTARA Rep #: [id number] : 1950 F 72 From: Malachi Lindsay MD PCP: Dr. Harish Noel MD Status: REG ER Study: Chest PA and Lateral Date of Exam: 09/02/23 Exam# [id number] Ordering Dr: Nathan Pritchard DO [id number] STUDY: X-RAY CHEST REASON FOR EXAM: Female, 72 years old. Dyspnea TECHNIQUE: PA and lateral COMPARISON: January 21, 2022 FINDINGS: Diffuse bilateral perihilar interstitial filtrate or noncardiogenic pulmonary edema. There is no demonstrated pleural abnormality. Normal size heart. Normal mediastinum and yris. Normal visualized pulmonary arteries. Normal visualized aortic arch and descending thoracic aorta. Postop change status post median sternotomy and CABG. Normal visualized thoracic spine. Normal visualized ribs, clavicles, and shoulders. There is no demonstrated abnormality of the visualized soft tissue structures of the upper abdomen. RAD/Chest PA and Lateral IMPRESSION: Diffuse bilateral perihilar interstitial infiltrates or noncardiogenic pulmonary edema Electronically Signed: Malachi Lindsay MD at 17:23 EDT , CC: Dr. Nathan Pritchard DO; Dr. Harish Noel MD Residential Team Leader: Signed Normal [facility] D-Dimer Quantitative (DVT/PE )on 09-02-2023 D-DIMER QUANT 0.40 FEU/ug/m Normal 0.27-0.[address] [facility] Comment on above: Result Comment: NORM AL D-Dimer level (<0.50) indicates no DVT or PE. Performed By: #### L 100.0100, L500.2500, L300.8000, L501.4020 #### [facility] [address] [place], [address] Emergency Department Summary on 09-02-2023 Emergency Department Summary [facility] Medical Records Department [address] [place] [address] Emergency Department Summary 09/02/23 MR#: [id number] Acct: [id number] Name: FELICITAS ALCANTARA Rep #: [id number] : 1950 72 From: Nathan Pritchard DO PCP: Dr. Harish Noel MD Status:DEP ER Location: ED HPI History of Present Illness Chief Complaint: Shortness of Breath Informant: patient Onset/Context/Timing Onset: Today Context: sudden Timing: Intermittent Quality: Positive for Dyspnea on exertion Worsened by: Exertion Relieved by: - (Laying flat) Associated Symptoms Negative for cough, rhinorrhea, post nasal drip, ear pain, fever, sore throat, chills, sweats, clear sputum, white sputum, yellow sputum or green sputum Chest Pain: Positive for Intermittent and - (Heaviness) Narrative Narrative: Patient presents with shortness of breath that began today. Patient states it began rather suddenly. Patient states she was recently started back on her Brilinta. Patient states she took her first dose today. Patient states that soon after she took this medication, she started feeling short of breath. Patient states it became worse with any activity. Patient states it got better when she laid flat. Patient admits to some heavy sensation over her chest. Patient states it is over the lower substernal area. Patient also admits to some dizziness and headache. [facility] Medical History History of left heart catheterization (LHC) ( 09/05/21) Abnormal nuclear stress test Dyspnea on exertion Mass of lip Elevated WBC count History of DVT (deep vein thrombosis) Presence of stent in coronary artery ( 04/10/16) History of non-ST elevation myocardial infarction (NSTEMI) Cardiogenic shock Type 2 diabetes mellitus 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 Essential hypertension Carpal tunnel syndrome Hyperlipemia Hypertension Hypothyroidism History of pneumonia IBS (irritable bowel syndrome) Diabetes Home Medications ???Medication ???Instructions ???Recorded ???Last Taken ???Type levothyroxine 112 mcg tablet 112 mcg PO DAILY #90 tabs 10/01/22 Unknown Rx clopidogrel 75 mg tablet 75 mg PO DAILY #90 tabs 01/28/23 Unknown Rx insulin NPH-regular 70-30 U-100 See Rx Instructions subcut QAM #15 06/25/23 Unknown Rx insulin 100 unit/mL subcutaneous mL pen carvedilol 25 mg tablet 25 mg PO BID #60 tabs 07/18/23 Unknown Rx Allergy/AdvReac Type Severity Reaction Status Date / Time alogliptin Allergy Hives Verified 09/02/23 15:25 dulaglutide (From Trulicity) Allergy Hives Verified 09/02/23 15:25 glipizide Allergy Hives Verified 09/02/23 15:25 metformin Allergy Hives Verified 09/02/23 15:25 Penicillins (PCN) Allergy Hives Verified 09/02/23 15:25 aspirin AdvReac Severe blood Verified 09/02/23 15:25 clots canagliflozin (From Invokana) AdvReac Severe abdominal Verified 09/02/23 15:25 pain Family History Sister Breast cancer Mother Hypertension Heart disease Myocardial infarction, Onset Age: 61 Thyroid disorder Grandmother Arthritis Seizures Father CVA (cerebral vascular accident) Brother Heart disease Myocardial infarction Sister CAD (coronary artery disease) Surgical History Hx of heart bypass surgery History of coronary artery bypass surgery ( 11/23/21) History of excision of mass ( 07/2020) Presence of coronary angioplasty implant and graft ( 04/10/16) History of tubal ligation History of hysterectomy History of tonsillectomy Social History household members: none Smoking Status: Former smoker how long ago did patient quit smokin12/2015 alcohol intake: never substance use type: does not use caffeine: Yes Type: coffee Number of servings: 1 frequency: 1-2 times per week ROS ROS ED Constitutional Constitutional ED: Denies chills or fever(s) Eyes Eyes: Denies blurry vision or change in vision ENT ENT ED: Denies rhinorrhea or sore throat Cardiovascular Cardiovascular: Reports chest pain; Denies palpitations Respiratory/Chest Respiratory/Chest: Reports dyspnea; Denies cough Gastrointestinal Gastrointestinal: Denies nausea or vomiting Genitourinary Genitourinary ED: Denies dysuria or hematuria Musculoskeletal Musculoskeletal: Denies back pain or neck pain Integumentary Reports rash; Denies abscess Neurologic Neurologic: Reports headache(s); Denies weakness Allergic/Immunologic Allergic/Immunologic ED: Denies mouth swelling or urticaria EXAM Physical Exam Const Vital Signs: 09/02/23 15:25 09/02/23 15:38 09/02/23 17:24 Temperatur (more content not included)... Normal [facility] L501.4020on 09-02-2023 TROPONIN-I HS 12 pg/mL Normal 3.0-54.[address] [facility] Comment on above: Order Comment: 'TROP ' Serial specimen #1, #2 or #3: 1 Result Comment: Carlton rice Note: New Test Units and Gender Specific Reference Ranges. For more information see Policy Stat Procedure Bledsoe High Sensitivity Troponin (TNIH) and attachments. Performed By: #### L 100.0100, L500.2500, L300.8000, L501.4020 #### [facility] [address] [place], [address] Urinalysis, Completeon 09-01 EPI,SQUAMOUS 0-5 SEEN Normal 5-[address] [facility] Comment on above: Order Comment: MAURISIO WHITE TO SPECIFY Performed By: #### L 400.0001 #### [facility] [address] [place], [address] BACTERIA 0 SEEN Normal None Seen [facility] Comment on above: Order Comment: COLLE CTOR TO SPECIFY Performed By: #### L 400.0001 #### [facility] [address] [place], [address] Mucus Ql (Urine sed) 0 SEEN Normal [facility] Comment on above: Order Comment: COLLE CTOR TO SPECIFY Performed By: #### L 400.0001 #### [facility] [address] [place], [address] RBC 0 SEEN Normal 0-[address] [facility] Comment on above: Order Comment: COLLE CTOR TO SPECIFY Performed By: #### L 400.0001 #### [facility] [address] [place], [address] WBC 0 SEEN Normal 0-[address] [facility] Comment on above: Order Comment: COLLE CTOR TO SPECIFY Performed By: #### L 400.0001 #### [facility] [address] [place], [address] MR/BMS.Bon 08-05-2023 MR/BMS.[facility] Internal Medicine [address] [place] [address] OFFICE VISIT Date of Service: 08/05/23 MR#: [id number] Acct: [id number] Name: FELICITAS ALCANTARA Rep #: [id number] : 1950 Provider: Dr. 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 Accompanied by: Self Is patient in pain?: No Allergies alogliptin Allergy (Verified 08/05/23 13:52) Hives dulaglutide (From Trulicity) Allergy (Verified 08/05/23 13:52) Hives glipizide Allergy (Verified 08/05/23 13:52) Hives metformin Allergy (Verified 08/05/23 13:52) Hives Penicillins (PCN) Allergy (Verified 08/05/23 13:52) Hives aspirin Adverse Reaction (Severe, Verified 08/05/23 13:52) blood clots canagliflozin (From Invokana) Adverse Reaction (Severe, Verified 08/05/23 13:52) abdominal pain Medications ???Medication ???Instructions ???Recorded ???Confirmed ???Type levothyroxine 112 mcg tablet 112 mcg PO DAILY #90 tabs 10/01/22 08/05/23 Rx clopidogrel 75 mg tablet 75 mg PO DAILY #90 tabs 01/28/23 08/05/23 Rx insulin NPH-regular 70-30 U-100 See Rx Instructions subcut QAM #15 06/25/23 08/05/23 Rx insulin 100 unit/mL subcutaneous mL pen carvedilol 25 mg tablet 25 mg PO BID #60 tabs 07/18/23 08/05/23 Rx PFSH Medical History History of left heart catheterization (LHC) ( 09/05/21) Abnormal nuclear stress test Dyspnea on exertion Mass of lip Elevated WBC count History of DVT (deep vein thrombosis) Presence of stent in coronary artery ( 04/10/16) History of non-ST elevation myocardial infarction (NSTEMI) Cardiogenic shock Type 2 diabetes mellitus 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 Essential hypertension Carpal tunnel syndrome Hyperlipemia Hypertension Hypothyroidism History of pneumonia IBS (irritable bowel syndrome) Diabetes Surgical History Hx of heart bypass surgery History of coronary artery bypass surgery ( 11/23/21) History of excision of mass ( 07/2020) Presence of coronary angioplasty implant and graft ( 04/10/16) History of tubal ligation History of hysterectomy History of tonsillectomy Family History Sister Breast cancer Mother Hypertension Heart disease Myocardial infarction, Onset Age: 61 Thyroid disorder Grandmother Arthritis Seizures Father CVA (cerebral vascular accident) Brother Heart disease Myocardial infarction Sister CAD (coronary artery disease) Social History household members: none Smoking Status: Former smoker how long ago did patient quit smokin12/2015 alcohol intake: never substance use type: does not use caffeine: Yes Type: coffee Number of servings: 1 frequency: 1-2 times per week HPI HPI Chief Complaint: 6m f/u Details: FELICITAS ALCANTARA, is a 72 F who presents to the office today for 6-month follow-up. Patient was last seen back in January. Overall is doing well. She notes perhaps just some slight fatigue. Other than that she is not having any chest pain or discomfort. No shortness of breath wheeze cough or congestion be on anything her normal. Self-admittedly has not been probably doing as well as she could in terms of eating in terms of starches and carbs but overall does continue to do better. She is eating some fresh fruits and vegetables. Avoiding processed foods, vegetable oils etc. She has known history of atherosclerotic heart disease, status post stent and bypass in 2021. Hyperlipidemia, hypothyroidism, essential hypertension. She has been following with cardiology at [place]. She is only on carvedilol and clopidogrel at this point. She does use insulin regimen as per the chart and she is hypothyroid on levothyroxine at 112 mcg daily. Review of systems per chart. She has now had cataract surgery and doing well with that. Physical exam. Vital signs on chart. Bilateral intraocular lens replacements. EOMI. PERRLA. Sclera are clear. TMs are unremarkable with normal light reflexes. Canals are unremarkable. Posterior pharynx is unremarkable. Plates. No cervical or supraclavicular lymph nodes enlarged or tender. No clear thyrom (more content not included)... Normal [facility] Absolute lymphocyte countOrd ered By: Dr. Noel on 06-11-2022 Lymphocytes Auto (Unsp spec) [#/Vol] 3.11 10*3/uL 0.83-4.[address] [facility] Basophil percentageOrdered B y: Dr. Noel on 06-11-2022 Basophils/100 WBC (Bld) 0.6 % 0-1 [facility] Bilirubin [Mass/Vol] 0.60 mg/dL 0.20-1.00 [facility] Comment on above: For patients on eltr ombopag therapy, use of Dimension Bledsoe TBIL is not recommended. Chloride [Moles/Vol] 102 mmol/L 98-107 [facility] Eosinophils/100 WBC (Bld) 2.2 % 0-[address] [facility] Glucose [Mass/Vol] 173 mg/dL 74-106 [facility] Comment on above: Fasting Glucose resu lt greater than or equal to 126 mg/dL suggests DIABETES MELLITUS per A.D.A. criteria. Neutrophils (Bld) [#/Vol] 9.5 10*3/uL 2.0-7.[address] [facility] Neutrophils/100 WBC (Bld) 67.2 % 47-[address] [facility] Potassium [Moles/Vol] 4.2 mmol/L 3.5-5.[address] [facility] Protein [Mass/Vol] 7.5 g/dL 6.4-8.2 [facility] Sodium [Moles/Vol] 135 mmol/L 136-145 [facility] WBC (Bld) [#/Vol] 14.0 10*3/uL 4.4-11.0 [facility] Basophil percentageOrdered B y: Rustam Francois on 06-11-2022 Cholesterol [Mass/Vol] 158 mg/dL <200 [facility] Comment on above: <200 mg/dL Desirable 200-240 mg/dL Borderline >240 mg/dL High Risk Triglyceride [Mass/Vol] 212 mg/dL <199 [facility] Comment on above: The drugs N-Acetylcy steine and Metamizole may falsely depress this assay.Serum Triglycerides Reference Interval Normal <150 mg/dL Borderline high 150 - 199 mg/dL High 200 - 499 mg/dL Very High > or = 500 mg/dL Blood erythrocytes count (nu mber/volume)Ordered By: Dr. Noel on 06-11-2022 RBC (Bld) [#/Vol] 5.01 10*6/uL 4.2-5.4 [facility] Blood hemoglobin measurement (mass/volume)Ordered By: Dr. Noel on 06-11-2022 Hemoglobin (Bld) [Mass/Vol] 14.6 g/dL 12.0-15.[address] [facility] Blood lymphocytes/100 leukoc ytesOrdered By: Dr. Noel on 06-11-2022 Lymphocytes/100 WBC (Bld) 22.2 % 19-[address] [facility] Blood monocytes/100 leukocyt esOrdered By: Dr. Noel on 06-11-2022 Monocytes/100 WBC (Bld) 7.0 % 0-10 [facility] Blood platelet mean volumeOr dered By: Dr. Noel on 06-11-2022 Platelet mean volume (Bld) [Entitic vol] 10.5 fL 6.2-12.[address] [facility] Determination of erythrocyte mean corpuscular volume (MCV)Ordered By: Dr. Noel on 06-11-2022 MCV (RBC) [Entitic vol] 89.6 fL 81-99 [facility] Direct bilirubinOrdered By: Dr. Noel on 06-11-2022 Bilirubin.direct [Mass/Vol] 0.16 mg/dL 0.00-0.[address] [facility] Hematocrit Auto (Bld) [Volum e fraction]Ordered By: Dr. Noel on 06-11-2022 Hematocrit (Bld) [Volume fraction] 44.9 % 37-[address] [facility] Laboratory - Chemistry and C hemistry - challengeOrdered By: Dr. Noel on 06-11-2022 ALP [Catalytic activity/Vol] 98 U/L 45-[address] [facility] ALT [Catalytic activity/Vol] 25 U/L 13-[address] [facility] CO2 [Moles/Vol] 28.0 mmol/L 21.0-32.[address] [facility] Cobalamin (Vitamin B12) [Mass/Vol] 296 pg/mL 211-[address] [facility] Free T4 [Mass/Vol] 1.03 ng/dL 0.76-1.46 [facility] Globulin (S) [Mass/Vol] 4.2 g/dL 2.2-4.2 [facility] Urea nitrogen/Creatinine [Mass ratio] 21.3 mg/mg 10-[address] [facility] Laboratory - Hematology and Cell countsOrdered By: Dr. Noel on 06-11-2022 Erythrocyte distribution width (RBC) [Entitic vol] 46.9 fL 35.1-43.[address] [facility] Erythrocyte distribution width (RBC) [Ratio] 14.3 % 11.6-14.[address] [facility] Immature granulocytes/100 WBC (Bld) 0.800 % 0.0-0.[address] [facility] Comment on above: IG% - Immature Granu locytes (promyelocytes, myelocytes and metamyelocytes) > 1% indicates that a LEFT SHIFT is Present. MCH (RBC) [Entitic mass] 29.1 pg 27.0-32.[address] [facility] Nucleated RBC/100 WBC (Bld) [Ratio] 0 % 0-[address] [facility] MCHC Auto (RBC) [Mass/Vol]Or dered By: Dr. Noel on 06-11-2022 MCHC (RBC) [Mass/Vol] 32.5 g/dL 32-[address] [facility] No Panel InformationOrdered By: Dr. Noel on 06-11-2022 Estimated GFR (MDRD) Amer 80 mL/min >[address] [facility] Comment on above: GFR Calc Estimated GFR (MDRD) Non-Af Amer 66 mL/min >[address] [facility] Comment on above: Non- GFR Calc Free Triiodothyronine (T3) pg/dL 2.6 pg/mL 2.18-3.[address] [facility] Thyroid Stimulating Hormone (TSH) 8.13 uIU/mL 0.358-3.[address] [facility] Vitamin D 25-Hydroxy 24.6 ng/mL [facility] Comment on above: Vitamin D 25(OH) Sta tus Range Deficiency <20 ng/mL (50nmol/L) Insufficiency 20 - 30 ng/mL (50 - 75 nmol/L) Sufficiency 30 - 100 ng/mL (75 - 250 nmol/L) Toxicity >100 ng/mL (>250 nmol/L) Platelets bldOrdered By: Dr. Noel on 06-11-2022 Platelets (Bld) [#/Vol] 316 10*3/uL 150-[address] [facility] Serum or plasma albumin betsy urement (mass/volume)Ordered By: Dr. Noel on 06-11-2022 Albumin [Mass/Vol] 3.3 g/dL 3.2-5.0 [facility] Serum or plasma albumin/glob ulin mass ratioOrdered By: Dr. Noel on 06-11-2022 Albumin/Globulin [Mass ratio] 0.8 {ratio} 0.9-2.[address] [facility] Serum or plasma calcium betsy urement (mass/volume)Ordered By: Dr. Noel on 06-11-2022 Calcium [Mass/Vol] 9.1 mg/dL 8.5-10.1 [facility] Serum or plasma cholesterol in HDL measurement (mass/volume)Ordered By: Rustam Francois on 06-11-2022 Cholesterol in HDL [Mass/Vol] 51 mg/dL >[address] [facility] Comment on above: The drugs N-Acetylcy steine and Metamizole may falsely depress this assay. Reference Range HDL <40 mg/dL Low HDL Cholesterol HDL >or= 60 mg/dL High HDL Cholesterol Serum or plasma cholesterol in VLDL measurement (mass/volume)Ordered By: Rustam Francois on 06-11-2022 Cholesterol in VLDL [Mass/Vol] 42 mg/dL 5-[address] [facility] Serum or plasma creatinine m easurement (mass/volume)Ordered By: Dr. Noel on 06-11-2022 Creatinine [Mass/Vol] 0.89 mg/dL 0.55-1.[address] [facility] Comment on above: The validity of the calculated GFR & GFRAA in patients over 70 years has not been determined. Clinical correlation is essential. Serum or plasma low density lipoprotein (LDL) cholesterol measurement (mass/volume)Ordered By: Rustam Francois on 06-11-2022 Cholesterol in LDL [Mass/Vol] 65 mg/dL 0-[address] [facility] Serum or plasma urea nitroge n measurement (mass/volume)Ordered By: Dr. Noel on 06-11-2022 Urea nitrogen [Mass/Vol] 19 mg/dL 7-[address] [facility] Thin prep Papanicolaou smear with manual screeningOrdered By: Dr. Noel on 06-11-2022 Thin prep Papanicolaou smear with manual screening 19 U/L 15-[address] [facility] Thin prep Papanicolaou smear with manual screening 5 5-[address] [facility] Laboratory - Hematology and Cell countson 05-16-2022 HbA1c (Bld) [Mass fraction] 10.0 % 4.2-6.[address] [facility] Absolute lymphocyte counton 01-21-2022 Lymphocytes Auto (Unsp spec) [#/Vol] 2.10 10*3/uL 0.83-4.[address] [facility] Work Phone: Basophil percentageon 2021 Basophils/100 WBC (Bld) 0.6 % 0-1 [facility] Work Phone: Chloride [Moles/Vol] 98 mmol/L 98-107 [facility] Work Phone: Eosinophils/100 WBC (Bld) 1.8 % 0-[address] [facility] Work Phone: Glucose [Mass/Vol] 208 mg/dL 74-106 [facility] Work Phone: Comment on above: Glucose result great er than or equal to 200 mg/dLsuggests DIABETES MELLITUS per A.D.A. criteria. Neutrophils (Bld) [#/Vol] 12.6 10*3/uL 2.0-7.[address] [facility] Work Phone: Neutrophils/100 WBC (Bld) 77.5 % 47-[address] [facility] Work Phone: Potassium [Moles/Vol] 4.1 mmol/L 3.5-5.[address] [facility] Work Phone: Sodium [Moles/Vol] 134 mmol/L 136-145 [facility] Work Phone: WBC (Bld) [#/Vol] 16.3 10*3/uL 4.4-11.0 [facility]: Blood erythrocytes count (nu mber/volume)on 01-21-2022 RBC (Bld) [#/Vol] 4.75 10*6/uL 4.2-5.4 [facility]: Blood hemoglobin measurement (mass/volume)on 01-21-2022 Hemoglobin (Bld) [Mass/Vol] 13.6 g/dL 12.0-15.[address] [facility] Work Phone: Blood lymphocytes/100 leukoc yteson 01-21-2022 Lymphocytes/100 WBC (Bld) 12.9 % 19-[address] [facility] Work Phone: Blood monocytes/100 leukocyt eson 01-21-2022 Monocytes/100 WBC (Bld) 6.2 % 0-10 [facility] Work Phone: Blood platelet mean volumeon 01-21-2022 Platelet mean volume (Bld) [Entitic vol] 10.3 fL 6.2-12.[address] [facility] Work Phone: Determination of erythrocyte mean corpuscular volume (MCV)on 01-21-2022 MCV (RBC) [Entitic vol] 90.9 fL 81-99 [facility] Work Phone: Glucose Glucometer (BldC) [M ass/Vol]on 01-21-2022 Glucose [Mass/Vol] 215 mg/dL 74-106 [facility] Work Phone: Comment on above: MANAGEMENT OF PATIEN T CARE PER NURSING PROTOCOL Hematocrit Auto (Bld) [Volum e fraction]on 01-21-2022 Hematocrit (Bld) [Volume fraction] 43.2 % 37-[address] [facility] Work Phone: Laboratory - Chemistry and C hemistry - challengeon 01-21-2022 CO2 [Moles/Vol] 29.0 mmol/L 21.0-32.[address] [facility] Work Phone: Urea nitrogen/Creatinine [Mass ratio] 18.6 mg/mg 10-[address] [facility] Work Phone: [phone] Laboratory - Hematology and Cell countson 01-21-2022 Erythrocyte distribution width (RBC) [Entitic vol] 42.5 fL 35.1-43.[address] [facility] Work Phone: [phone] Erythrocyte distribution width (RBC) [Ratio] 12.8 % 11.6-14.[address] [facility] Work Phone: Immature granulocytes/100 WBC (Bld) 1.000 % 0.0-0.[address] [facility] Work Phone: Comment on above: IG% - Immature Granu locytes (promyelocytes, myelocytes and metamyelocytes) > 1% indicates that a LEFT SHIFT is Present. MCH (RBC) [Entitic mass] 28.6 pg 27.0-32.[address] [facility] Work Phone: Nucleated RBC/100 WBC (Bld) [Ratio] 0 % 0-[address] [facility] Work Phone: MCHC Auto (RBC) [Mass/Vol]on 01-21-2022 MCHC (RBC) [Mass/Vol] 31.5 g/dL 32-[address] [facility] Work Phone: No Panel Informationon 01-21 D-Dimer Quantitative (PE/DVT) 1.38 FEU/ug/m 0.27-0.[address] [facility] Work Phone: Comment on above: D-Dimer ELEVATED (>0 .49): Additional studies and clinicalassessments are indicated to conclude diagnosis of:Deep Vein Thrombosis (DVT) or Pulmonary Embolism (PE)CRITICAL VALUE VERIFIED. CALLED TO JEWELL RODRIGEZ01/21/22 164Oliverio Woods.RESULTS READ BACK BY SAME . Estimated Creatinine Clearance Calc 45.50 ml/min [facility] Work Phone: Estimated GFR (MDRD) Amer 78 mL/min >[address] [facility] Work Phone: Comment on above: GFR Calc Estimated GFR (MDRD) Non-Af Amer 65 mL/min >[address] [facility] Work Phone: Comment on above: Non- GFR Calc Troponin I High Sensitivity 17 pg/mL 3.0-54.[address] [facility] Work Phone: Comment on above: Please Note: [place] t Units and Gender Specific Reference Ranges. For more information see Policy Stat Procedure Bledsoe High Sensitivity Troponin (TNIH) and attachments. Platelets bldon 01-21-2022 Platelets (Bld) [#/Vol] 374 10*3/uL 150-[address] [facility] Work Phone: Serum or plasma calcium betsy urement (mass/volume)on 01-21-2022 Calcium [Mass/Vol] 10.3 mg/dL 8.5-10.1 [facility] Work Phone: Serum or plasma creatinine m easurement (mass/volume)on 01-21-2022 Creatinine [Mass/Vol] 0.91 mg/dL 0.55-1.[address] [facility] Work Phone: Comment on above: The validity of the calculated GFR & GFRAA in patients over 70 years has not been determined. Clinical correlation is essential. Serum or plasma urea nitroge n measurement (mass/volume)on 01-21-2022 Urea nitrogen [Mass/Vol] 17 mg/dL 7-[address] [facility] Work Phone: Thin prep Papanicolaou smear with manual screeningon 01-21-2022 Thin prep Papanicolaou smear with manual screening 7 5-[address] [facility] Work Phone: [phone] Basophil percentageon 2021 Bilirubin [Mass/Vol] 0.50 mg/dL 0.20-1.00 [facility] Work Phone: Comment on above: For patients on eltr ombopag therapy, use of Dimension [place] TBIL is not recommended. Chloride [Moles/Vol] 102 mmol/L 98-107 [facility] Work Phone: [phone] Glucose [Mass/Vol] 109 mg/dL 74-106 [facility] Work Phone: Comment on above: Fasting Glucose resu lt from 100 to 125 mg/dL suggests IMPAIRED HOMEOSTASIS per A.D.A. criteria. Potassium [Moles/Vol] 4.2 mmol/L 3.5-5.[address] [facility] Work Phone: [phone] Protein [Mass/Vol] 7.6 g/dL 6.4-8.2 [facility] Work Phone: [phone] Sodium [Moles/Vol] 136 mmol/L 136-145 [facility] Work Phone: Laboratory - Chemistry and C hemistry - challengeon 01-11-2022 ALP [Catalytic activity/Vol] 94 U/L 45-[address] [facility] Work Phone: ALT [Catalytic activity/Vol] 20 U/L 13-[address] [facility] Work Phone: [phone] CO2 [Moles/Vol] 29.0 mmol/L 21.0-32.[address] [facility] Work Phone: [phone] Free T4 [Mass/Vol] 0.90 ng/dL 0.76-1.46 [facility] Work Phone: Globulin (S) [Mass/Vol] 4.2 g/dL 2.2-4.2 [facility] Work Phone: [phone] Magnesium [Mass/Vol] 2.0 mg/dL 1.6-2.6 [facility] Work Phone: [phone] Urea nitrogen/Creatinine [Mass ratio] 22.6 mg/mg 10-[address] [facility] Work Phone: No Panel Informationon 01-11 Estimated GFR (MDRD) Amer 98 mL/min >[address] [facility] Work Phone: Comment on above: GFR Calc Estimated GFR (MDRD) Non-Af Amer 81 mL/min >[address] [facility] Work Phone: Comment on above: Non- GFR Calc Free Triiodothyronine (T3) pg/dL 3.5 pg/mL 2.18-3.[address] [facility] Work Phone: [phone] Thyroid Stimulating Hormone (TSH) 2.25 uIU/mL 0.358-3.[address] [facility] Work Phone: Vitamin D 25-Hydroxy 19.4 ng/mL [facility] Work Phone: Comment on above: Vitamin D 25(OH) Sta tus Range Deficiency <20 ng/mL (50nmol/L) Insufficiency 20 - 30 ng/mL (50 - 75 nmol/L) Sufficiency 30 - 100 ng/mL (75 - 250 nmol/L) Toxicity >100 ng/mL (>250 nmol/L) Serum or plasma albumin betsy urement (mass/volume)on 01-11-2022 Albumin [Mass/Vol] 3.4 g/dL 3.2-5.0 [facility] Work Phone: Serum or plasma albumin/glob ulin mass ratioon 01-11-2022 Albumin/Globulin [Mass ratio] 0.8 {ratio} 0.9-2.[address] [facility] Work Phone: Serum or plasma calcium betsy urement (mass/volume)on 01-11-2022 Calcium [Mass/Vol] 9.5 mg/dL 8.5-10.1 [facility] Work Phone: Serum or plasma creatinine m easurement (mass/volume)on 01-11-2022 Creatinine [Mass/Vol] 0.75 mg/dL 0.55-1.[address] [facility] Work Phone: Comment on above: The validity of the calculated GFR & GFRAA in patients over 70 years has not been determined. Clinical correlation is essential. Serum or plasma urea nitroge n measurement (mass/volume)on 01-11-2022 Urea nitrogen [Mass/Vol] 17 mg/dL 7-[address] [facility] Work Phone: Thin prep Papanicolaou smear with manual screeningon 01-11-2022 Thin prep Papanicolaou smear with manual screening 14 U/L 15-[address] [facility] Work Phone: Thin prep Papanicolaou smear with manual screening 5 5-[address] [facility] Work Phone: XR CHEST 2 VIEWSon 2 XR CHEST 2 VIEWS ORIGINAL EXAMINATION: TWO XRAY VIEWS OF THE CHEST12/27/2021 12:14 pm XR Chest, two views COMPARISON: 12/13/2021 HISTORY: ORDERING SYSTEM PROVIDED HISTORY: Reason for Exam: pleural effusion, recent open heart surgery FINDINGS: The lungs show no infiltrate, consolidation or mass. Heart size and mediastinal contours are stable accounting for differences in projection and patient position. No pneumothorax, pleural fluid, or vascular congestion is seen. The bones show no acute process. Postop changes in the heart. Resolution of previous pleural effusion and basilar atelectasis. Stable left upper lobe nodule since 2017, therefore benign. IMPRESSION: No acute cardio pulmonary process. Complete resolution of left pleural effusion and basilar atelectasis. Interpreted by: Fausto Wong MD Preliminary Report By: Fausto Wong MD Electronically signed By Fausto Wong MD Dictated Date: 12/28/2021 12:00:58 AM Prelim Date: 12/28/2021 12:02:56 AM Sign Date: 12/28/2021 12:02:56 AM Ordering Provider: JUAN JUAREZ [facility] ([place] XR CHEST 2 VIEWSon XR CHEST 2 VIEWS ORIGINAL EXAMINATION: TWO XRAY VIEWS OF THE CHEST12/13/2021 2:45 pm COMPARISON: 11/29/2021 HISTORY: ORDERING SYSTEM PROVIDED HISTORY: Reason for Exam: pleural effusion postop open heart FINDINGS: Stable heart and mediastinum with postop changes as previously. Removal of left subclavian central line. No pneumothorax or vascular congestion. There is some opacity in the left base with minimal blunting of the costophrenic angle that has improved. Essentially clear lungs. IMPRESSION: Improved aeration of the lung bases. There is mild left basilar atelectasis and minimal residual left pleural effusion. The Interpreted by: Fausto Wong MD Preliminary Report By: Fausto Wong MD Electronically signed By Fausto Wong MD Dictated Date: 12/15/2021 8:55:37 AM Prelim Date: 12/15/2021 8:57:36 AM Sign Date: 12/15/2021 8:57:36 AM Ordering Provider: JUAN JUAREZ [facility] ([place] .GFRon 12-14-2021 GFR >60 Normal [facility] ([place]) Comment on above: Result Comment: GFR Population mean for , Non- Americans Ages 20-29 = 116 mL/min/1.73 sq.m. Ages 30-39 = 107 mL/min/1.73 sq.m. Ages 40-49 = 99 mL/min/1.73 sq.m. Ages 50-59 = 93 mL/min/1.73 sq.m. Ages 60-69 = 85 mL/min/1.73 sq.m. Ages 70+ = 75 mL/min/1.73 sq.m. Chronic Kidney Disease: Less than 60 mL/min/1.73 square meters End Stage Renal Disease: Less than 15 mL/min/1.73 square meters Performed By: #### H CTRP, HGBRP, GLURP, CLRP, NARP, BGRP, KRP, CARP #### [address] [address] GFR Non- >60 Normal [facility] ([place]) Comment on above: Result Comment: GFR Population mean for , Non- Americans Ages 20-29 = 116 mL/min/1.73 sq.m. Ages 30-39 = 107 mL/min/1.73 sq.m. Ages 40-49 = 99 mL/min/1.73 sq.m. Ages 50-59 = 93 mL/min/1.73 sq.m. Ages 60-69 = 85 mL/min/1.73 sq.m. Ages 70+ = 75 mL/min/1.73 sq.m. Chronic Kidney Disease: Less than 60 mL/min/1.73 square meters End Stage Renal Disease: Less than 15 mL/min/1.73 square meters Performed By: #### H CTRP, HGBRP, GLURP, CLRP, NARP, BGRP, KRP, CARP #### [address] [address] BMPon 12-14-2021 BUN/Creatinine Ratio 32.6 ratio High 10.0-22.0 [facility] ([place] Comment on above: Performed By: #### H CTRP, HGBRP, GLURP, CLRP, NARP, BGRP, KRP, CARP #### [address] [address] Calcium [Mass/Vol] 10.0 mg/dL Normal 8.7-10.4 [facility] ([place]) Comment on above: Performed By: #### H CTRP, HGBRP, GLURP, CLRP, NARP, BGRP, KRP, CARP #### [address] [address] Chloride [Moles/Vol] 99 mmol/L Normal 98-110 [facility] ([place] Comment on above: Performed By: #### H CTRP, HGBRP, GLURP, CLRP, NARP, BGRP, KRP, CARP #### [address] [address] CO2 [Moles/Vol] 32 mmol/L Normal 22-32 [facility] ([place] Comment on above: Performed By: #### H CTRP, HGBRP, GLURP, CLRP, NARP, BGRP, KRP, CARP #### [address] [address] Creatinine [Mass/Vol] 0.86 mg/dL Normal 0.50-1.20 [facility] ([place]) Comment on above: Performed By: #### H CTRP, HGBRP, GLURP, CLRP, NARP, BGRP, KRP, CARP #### [address] [address] Electrolyte Balance 6.0 mEq/L Normal 4.0-15.0 [facility] ([place]) Comment on above: Performed By: #### H CTRP, HGBRP, GLURP, CLRP, NARP, BGRP, KRP, CARP #### [address] [address] Glucose [Mass/Vol] 268 mg/dL High 82-115 [facility] ([place]) Comment on above: Performed By: #### H CTRP, HGBRP, GLURP, CLRP, NARP, BGRP, KRP, CARP #### [address] [address] Potassium [Moles/Vol] 5.0 mmol/L Normal 3.5-5.0 [facility] ([place] Comment on above: Result Comment: Spec imen slightly hemolyzed. Performed By: #### H CTRP, HGBRP, GLURP, CLRP, NARP, BGRP, KRP, CARP #### [address] [address] Sodium [Moles/Vol] 137 mmol/L Normal 136-145 [facility] ([place] Comment on above: Performed By: #### H CTRP, HGBRP, GLURP, CLRP, NARP, BGRP, KRP, CARP #### [address] [address] Urea nitrogen [Mass/Vol] 28.0 mg/dL High 8.0-22.0 [facility] ([place] Comment on above: Performed By: #### H CTRP, HGBRP, GLURP, CLRP, NARP, BGRP, KRP, CARP #### [address] [address] LABORATORYOrdered By: SYSTEM SYSTEM on 12-13-2021 Calcium [Mass/Vol] 10.0 mg/dL Invalid Interpretation Code 8.7 - 10.4 mg/dL ADM SS Chloride [Moles/Vol] 99 mmol/L Invalid Interpretation Code 98 - 110 mEq/L ADM SS CO2 [Moles/Vol] 32 mmol/L Invalid Interpretation Code 22 - 32 mEq/L ADM SS Creatinine [Mass/Vol] 0.86 mg/dL Invalid Interpretation Code 0.50 - 1.20 mg/dL ADM SS Electrolyte Balance 6.0 mEq/L Invalid Interpretation Code 4.0 - 15.0 mEq/L AH ADM SS GFR/1.73 sq M.predicted among blacks MDRD (S/P/Bld) [Vol rate/Area] ml/min/1.73sqm Invalid Interpretation Code AH Chemistry S GFR/1.73 sq M.predicted among non-blacks MDRD (S/P/Bld) [Vol rate/Area] ml/min/1.73sqm Invalid Interpretation Code Chemistry S Glucose [Mass/Vol] 268 mg/dL Invalid Interpretation Code 82 - 115 mg/dL ADM SS Potassium [Moles/Vol] 5.0 mmol/L Invalid Interpretation Code 3.5 - 5.0 mEq/L AH ADM SS Comment on above: Result Comment: Spec imen slightly hemolyzed. Sodium [Moles/Vol] 137 mmol/L Invalid Interpretation Code 136 - 145 mEq/L AH ADM SS Urea nitrogen [Mass/Vol] 28.0 mg/dL Invalid Interpretation Code 8.0 - 22.0 mg/dL ADM SS Urea nitrogen/Creatinine [Mass ratio] 32.6 ratio Invalid Interpretation Code 10.0 - 22.0 ratio AH ADM SS XR CHEST 2 VIEWSon XR CHEST 2 VIEWS ORIGINAL EXAMINATION: TWO XRAY VIEWS OF THE CHEST11/29/2021 7:18 am COMPARISON: Chest x-ray November 28, 2021 HISTORY: ORDERING SYSTEM PROVIDED HISTORY: Reason for Exam: Pleural effusions FINDINGS: Left subclavian central venous catheter with the tip projecting in similar position in the SVC. Midline surgical padmini and median sternotomy wires. Stable cardiomegaly. No significant pulmonary vascular congestion. Small left and trace right pleural effusions with adjacent airspace disease. No pneumothorax. No acute osseous abnormality. IMPRESSION: Small left and trace right pleural effusions with adjacent airspace disease. I have personally reviewed the images of this examination and agree with the resident's findings and interpretation. Interpreted by: Antwan Fountain Preliminary Report By: Akua Bejarano Electronically signed By Antwan Fountain Dictated Date: 11/29/2021 8:05:15 AM Prelim Date: 11/29/2021 8:10:22 AM Sign Date: 11/30/2021 12:35:45 AM Ordering Provider: NAT Mercado [facility] ([place]) .Auto Diffon 11-29-2021 Basophil, Absolute 0.1 10 3/mcL Normal 0.0-0.3 [facility] ([place]) Comment on above: Performed By: #### H CTRP, HGBRP, GLURP, CLRP, NARP, BGRP, KRP, CARP #### [address] [address] Basophils/100 WBC (Bld) 0.5 % Normal 0.0-2.5 [facility] ([place] Comment on above: Performed By: #### H CTRP, HGBRP, GLURP, CLRP, NARP, BGRP, KRP, CARP #### [address] [address] Eosinophil, Absolute 0.7 10 3/mcL Normal 0.0-0.7 [facility] ([place] Comment on above: Performed By: #### H CTRP, HGBRP, GLURP, CLRP, NARP, BGRP, KRP, CARP #### [address] [address] Eosinophils/100 WBC (Bld) 4.1 % Normal 0.0-6.0 [facility] ([place] Comment on above: Performed By: #### H CTRP, HGBRP, GLURP, CLRP, NARP, BGRP, KRP, CARP #### [address] [address] Lymphocyte, Absolute 2.5 10 3/mcL Normal 0.9-4.3 [facility] ([place]) Comment on above: Performed By: #### H CTRP, HGBRP, GLURP, CLRP, NARP, BGRP, KRP, CARP #### [address] [address] Lymphocytes/100 WBC (Bld) 14.6 % Low 20.0-40.0 [facility] ([place] Comment on above: Performed By: #### H CTRP, HGBRP, GLURP, CLRP, NARP, BGRP, KRP, CARP #### [address] [address] Monocyte, Absolute 1.2 10 3/mcL Normal 0.1-1.4 [facility] ([place] Comment on above: Performed By: #### H CTRP, HGBRP, GLURP, CLRP, NARP, BGRP, KRP, CARP #### [address] [address] Monocytes/100 WBC (Bld) 6.8 % Normal 2.0-13.0 [facility] ([place]) Comment on above: Performed By: #### H CTRP, HGBRP, GLURP, CLRP, NARP, BGRP, KRP, CARP #### [address] [address] Neutrophils/100 WBC (Bld) 74.0 % Normal 50.0-75.0 [facility] ([place] Comment on above: Performed By: #### H CTRP, HGBRP, GLURP, CLRP, NARP, BGRP, KRP, CARP #### [address] [address] .GFRon 11-29-2021 GFR Non- >60 Normal [facility] ([place] Comment on above: Result Comment: GFR Population mean for , Non- Americans Ages 20-29 = 116 mL/min/1.73 sq.m. Ages 30-39 = 107 mL/min/1.73 sq.m. Ages 40-49 = 99 mL/min/1.73 sq.m. Ages 50-59 = 93 mL/min/1.73 sq.m. Ages 60-69 = 85 mL/min/1.73 sq.m. Ages 70+ = 75 mL/min/1.73 sq.m. Chronic Kidney Disease: Less than 60 mL/min/1.73 square meters End Stage Renal Disease: Less than 15 mL/min/1.73 square meters Performed By: #### H CTRP, HGBRP, GLURP, CLRP, NARP, BGRP, KRP, CARP #### [address] [address] GFR >60 Normal [facility] ([place] Comment on above: Result Comment: GFR Population mean for , Non- Americans Ages 20-29 = 116 mL/min/1.73 sq.m. Ages 30-39 = 107 mL/min/1.73 sq.m. Ages 40-49 = 99 mL/min/1.73 sq.m. Ages 50-59 = 93 mL/min/1.73 sq.m. Ages 60-69 = 85 mL/min/1.73 sq.m. Ages 70+ = 75 mL/min/1.73 sq.m. Chronic Kidney Disease: Less than 60 mL/min/1.73 square meters End Stage Renal Disease: Less than 15 mL/min/1.73 square meters Performed By: #### H CTRP, HGBRP, GLURP, CLRP, NARP, BGRP, KRP, CARP #### [address] [address] .NEUABSon 11-29-2021 Neutrophil, Absolute 12.4 10 3/mcL High 2.3-8.1 [facility] ([place] Comment on above: Performed By: #### H CTRP, HGBRP, GLURP, CLRP, NARP, BGRP, KRP, CARP #### [address] [address] BMPon 11-29-2021 BUN/Creatinine Ratio 23.2 ratio High 10.0-22.0 [facility] ([place] Comment on above: Performed By: #### H CTRP, HGBRP, GLURP, CLRP, NARP, BGRP, KRP, CARP #### [address] [address] Calcium [Mass/Vol] 9.4 mg/dL Normal 8.7-10.4 [facility] ([place] Comment on above: Performed By: #### H CTRP, HGBRP, GLURP, CLRP, NARP, BGRP, KRP, CARP #### [address] [address] Chloride [Moles/Vol] 92 mmol/L Low 98-110 [facility] ([place] Comment on above: Performed By: #### H CTRP, HGBRP, GLURP, CLRP, NARP, BGRP, KRP, CARP #### [address] [address] CO2 [Moles/Vol] 34 mmol/L High 22-32 [facility] ([place] Comment on above: Performed By: #### H CTRP, HGBRP, GLURP, CLRP, NARP, BGRP, KRP, CARP #### [address] [address] Creatinine [Mass/Vol] 0.82 mg/dL Normal 0.50-1.20 [facility] ([place] Comment on above: Performed By: #### H CTRP, HGBRP, GLURP, CLRP, NARP, BGRP, KRP, CARP #### [address] [address] Electrolyte Balance 8.0 mEq/L Normal 4.0-15.0 [facility] ([place] Comment on above: Performed By: #### H CTRP, HGBRP, GLURP, CLRP, NARP, BGRP, KRP, CARP #### [place] [address] Glucose [Mass/Vol] 168 mg/dL High 82-115 [facility] ([place] Comment on above: Performed By: #### H CTRP, HGBRP, GLURP, CLRP, NARP, BGRP, KRP, CARP #### [place] [id number] Potassium [Moles/Vol] 3.9 mmol/L Normal 3.5-5.0 [facility] ([place] Comment on above: Performed By: #### H CTRP, HGBRP, GLURP, CLRP, NARP, BGRP, KRP, CARP #### [place] [address] Sodium [Moles/Vol] 134 mmol/L Low 136-145 [facility] ([place] Comment on above: Performed By: #### H CTRP, HGBRP, GLURP, CLRP, NARP, BGRP, KRP, CARP #### [place] [id number] Urea nitrogen [Mass/Vol] 19.0 mg/dL Normal 8.0-22.0 [facility] ([place] Comment on above: Performed By: #### H CTRP, HGBRP, GLURP, CLRP, NARP, BGRP, KRP, CARP #### [address] [address] CBCon 11-29-2021 Erythrocyte distribution width (RBC) [Ratio] 14.2 % Normal 11.5-15.5 [facility] ([place] Comment on above: Performed By: #### H CTRP, HGBRP, GLURP, CLRP, NARP, BGRP, KRP, CARP #### [place] [id number] Hematocrit (Bld) [Volume fraction] 34.6 % Normal 34.0-46.0 [facility] ([place] Comment on above: Performed By: #### H CTRP, HGBRP, GLURP, CLRP, NARP, BGRP, KRP, CARP #### [place] [address] Hgb 11.4 G/dL Low 12.0-16.0 [facility] ([place] Comment on above: Performed By: #### H CTRP, HGBRP, GLURP, CLRP, NARP, BGRP, KRP, CARP #### [place] [address] MCH (RBC) [Entitic mass] 29.7 pg Normal 27.0-33.0 [facility] ([place] Comment on above: Performed By: #### H CTRP, HGBRP, GLURP, CLRP, NARP, BGRP, KRP, CARP #### [place] [address] MCHC 32.9 G/dL Normal 32.0-36.0 [facility] ([place] Comment on above: Performed By: #### H CTRP, HGBRP, GLURP, CLRP, NARP, BGRP, KRP, CARP #### [place] [address] MCV (RBC) [Entitic vol] 90.5 fL Normal 80.0-99.0 [facility] ([place] Comment on above: Performed By: #### H CTRP, HGBRP, GLURP, CLRP, NARP, BGRP, KRP, CARP #### [place] [address] Platelet 365 10 3/mcL Normal 150-450 [facility] ([place] Comment on above: Performed By: #### H CTRP, HGBRP, GLURP, CLRP, NARP, BGRP, KRP, CARP #### [place] [address] Platelet mean volume (Bld) [Entitic vol] 8.1 fL Normal 6.6-10.5 [facility] ([place] Comment on above: Performed By: #### H CTRP, HGBRP, GLURP, CLRP, NARP, BGRP, KRP, CARP #### [place] [address] RBC 3.82 10 6/mcL Low 4.10-5.30 [facility] ([place] Comment on above: Performed By: #### H CTRP, HGBRP, GLURP, CLRP, NARP, BGRP, KRP, CARP #### [facility] [address] [place] [address] WBC 16.8 10 3/mcL High 4.5-10.8 [facility] ([place] Comment on above: Performed By: #### H CTRP, HGBRP, GLURP, CLRP, NARP, BGRP, KRP, CARP #### [facility] [address] [place] [id number] LABORATORYOrdered By: Dayo Sanabria on 11-29-2021 Blood Glucose Testing Reason Routine (11/29/21 11:55 AM) [facility] Work Phone: Glucose [Mass/Vol] 164 mg/dL Invalid Interpretation Code 82 - 115 mg/dL [facility] Work Phone: Comment on above: Result Comment: LARS Buckley LABORATORYOrdered By: Rodney Nam on 11-29-2021 Blood Glucose Testing Reason Routine (11/29/21 7:28 AM) [facility] Work Phone: Glucose [Mass/Vol] 174 mg/dL Invalid Interpretation Code 82 - 115 mg/dL [facility] Work Phone: LABORATORYOrdered By: SYSTEM SYSTEM on 11-29-2021 Basophils (Bld) [#/Vol] 0.1 103/mcL Invalid Interpretation Code 0.0 - 0.3 10^3/mcL AH Workflow SS Basophils/100 WBC (Bld) 0.5 % Invalid Interpretation Code 0.0 - 2.5 % AH Workflow SS Calcium [Mass/Vol] 9.4 mg/dL Invalid Interpretation Code 8.7 - 10.4 mg/dL AH ADM SS Chloride [Moles/Vol] 92 mmol/L Invalid Interpretation Code 98 - 110 mEq/L AH ADM SS CO2 [Moles/Vol] 34 mmol/L Invalid Interpretation Code 22 - 32 mEq/L AH ADM SS Creatinine [Mass/Vol] 0.82 mg/dL Invalid Interpretation Code 0.50 - 1.20 mg/dL ADM SS Electrolyte Balance 8.0 mEq/L Invalid Interpretation Code 4.0 - 15.0 mEq/L ADM SS Eosinophils (Bld) [#/Vol] 0.7 103/mcL Invalid Interpretation Code 0.0 - 0.7 10^3/mcL AH Workflow SS Eosinophils/100 WBC (Bld) 4.1 % Invalid Interpretation Code 0.0 - 6.0 % Workflow SS Erythrocyte distribution width (RBC) [Ratio] 14.2 % Invalid Interpretation Code 11.5 - 15.5 % AH Workflow SS GFR/1.73 sq M.predicted among blacks MDRD (S/P/Bld) [Vol rate/Area] ml/min/1.73sqm Invalid Interpretation Code ADM SS GFR/1.73 sq M.predicted among non-blacks MDRD (S/P/Bld) [Vol rate/Area] ml/min/1.73sqm Invalid Interpretation Code ADM SS Glucose [Mass/Vol] 168 mg/dL Invalid Interpretation Code 82 - 115 mg/dL ADM SS Hematocrit (Bld) [Volume fraction] 34.6 % Invalid Interpretation Code 34.0 - 46.0 % Workflow SS Hemoglobin (Bld) [Mass/Vol] 11.4 G/dL Invalid Interpretation Code 12.0 - 16.0 G/dL Workflow SS Lymphocytes (Bld) [#/Vol] 2.5 103/mcL Invalid Interpretation Code 0.9 - 4.3 10^3/mcL Workflow SS Lymphocytes/100 WBC (Bld) 14.6 % Invalid Interpretation Code 20.0 - 40.0 % Workflow SS MCH (RBC) [Entitic mass] 29.7 pg Invalid Interpretation Code 27.0 - 33.0 pg AH Workflow SS MCHC 32.9 G/dL Invalid Interpretation Code 32.0 - 36.0 G/dL Workflow SS MCV (RBC) [Entitic vol] 90.5 fL Invalid Interpretation Code 80.0 - 99.0 fL Workflow SS Monocytes (Bld) [#/Vol] 1.2 103/mcL Invalid Interpretation Code 0.1 - 1.4 10^3/mcL Workflow SS Monocytes/100 WBC (Bld) 6.8 % Invalid Interpretation Code 2.0 - 13.0 % Workflow SS Neutrophils (Bld) [#/Vol] 12.4 103/mcL Invalid Interpretation Code 2.3 - 8.1 10^3/mcL AH Workflow SS Neutrophils/100 WBC (Bld) 74.0 % Invalid Interpretation Code 50.0 - 75.0 % AH Workflow SS Platelet mean volume (Bld) [Entitic vol] 8.1 fL Invalid Interpretation Code 6.6 - 10.5 fL AH Workflow SS Platelets (Bld) [#/Vol] 365 103/mcL Invalid Interpretation Code 150 - 450 10^3/mcL AH Workflow SS Potassium [Moles/Vol] 3.9 mmol/L Invalid Interpretation Code 3.5 - 5.0 mEq/L AH ADM SS RBC (Bld) [#/Vol] 3.82 106/mcL Invalid Interpretation Code 4.10 - 5.30 10^6/mcL AH Workflow SS Sodium [Moles/Vol] 134 mmol/L Invalid Interpretation Code 136 - 145 mEq/L AH ADM SS Urea nitrogen [Mass/Vol] 19.0 mg/dL Invalid Interpretation Code 8.0 - 22.0 mg/dL AH ADM SS Urea nitrogen/Creatinine [Mass ratio] 23.2 ratio Invalid Interpretation Code 10.0 - 22.0 ratio AH ADM SS WBC (Bld) [#/Vol] 16.8 103/mcL Invalid Interpretation Code 4.5 - 10.8 10^3/mcL Workflow SS .Auto Diffon 11-28-2021 Basophil, Absolute 0.1 10 3/mcL Normal 0.0-0.3 [facility] ([place] Comment on above: Performed By: #### H CTRP, HGBRP, GLURP, CLRP, NARP, BGRP, KRP, CARP #### [address] [address] Basophils/100 WBC (Bld) 0.8 % Normal 0.0-2.5 [facility] ([place] Comment on above: Performed By: #### H CTRP, HGBRP, GLURP, CLRP, NARP, BGRP, KRP, CARP #### [address] [address] Eosinophil, Absolute 0.4 10 3/mcL Normal 0.0-0.7 [facility] ([place] Comment on above: Performed By: #### H CTRP, HGBRP, GLURP, CLRP, NARP, BGRP, KRP, CARP #### [address] [address] Eosinophils/100 WBC (Bld) 2.9 % Normal 0.0-6.0 [facility] ([place] Comment on above: Performed By: #### H CTRP, HGBRP, GLURP, CLRP, NARP, BGRP, KRP, CARP #### [address] [address] Lymphocyte, Absolute 2.0 10 3/mcL Normal 0.9-4.3 [facility] ([place]) Comment on above: Performed By: #### H CTRP, HGBRP, GLURP, CLRP, NARP, BGRP, KRP, CARP #### [address] [address] Lymphocytes/100 WBC (Bld) 13.5 % Low 20.0-40.0 [facility] ([place] Comment on above: Performed By: #### H CTRP, HGBRP, GLURP, CLRP, NARP, BGRP, KRP, CARP #### [address] [address] Monocyte, Absolute 1.1 10 3/mcL Normal 0.1-1.4 [facility] ([place] Comment on above: Performed By: #### H CTRP, HGBRP, GLURP, CLRP, NARP, BGRP, KRP, CARP #### [address] [address] Monocytes/100 WBC (Bld) 7.7 % Normal 2.0-13.0 [facility] ([place]) Comment on above: Performed By: #### H CTRP, HGBRP, GLURP, CLRP, NARP, BGRP, KRP, CARP #### [address] [id number] Neutrophils/100 WBC (Bld) 75.1 % High 50.0-75.0 [facility] ([place]) Comment on above: Performed By: #### H CTRP, HGBRP, GLURP, CLRP, NARP, BGRP, KRP, CARP #### [address] [id number] .GFRon 11-28-2021 GFR >60 Normal [facility] ([place]) Comment on above: Result Comment: GFR Population mean for , Non- Americans Ages 20-29 = 116 mL/min/1.73 sq.m. Ages 30-39 = 107 mL/min/1.73 sq.m. Ages 40-49 = 99 mL/min/1.73 sq.m. Ages 50-59 = 93 mL/min/1.73 sq.m. Ages 60-69 = 85 mL/min/1.73 sq.m. Ages 70+ = 75 mL/min/1.73 sq.m. Chronic Kidney Disease: Less than 60 mL/min/1.73 square meters End Stage Renal Disease: Less than 15 mL/min/1.73 square meters Performed By: #### H CTRP, HGBRP, GLURP, CLRP, NARP, BGRP, KRP, CARP #### [place] [address] GFR Non- >60 Normal [facility] ([place]) Comment on above: Result Comment: GFR Population mean for , Non- Americans Ages 20-29 = 116 mL/min/1.73 sq.m. Ages 30-39 = 107 mL/min/1.73 sq.m. Ages 40-49 = 99 mL/min/1.73 sq.m. Ages 50-59 = 93 mL/min/1.73 sq.m. Ages 60-69 = 85 mL/min/1.73 sq.m. Ages 70+ = 75 mL/min/1.73 sq.m. Chronic Kidney Disease: Less than 60 mL/min/1.73 square meters End Stage Renal Disease: Less than 15 mL/min/1.73 square meters Performed By: #### H CTRP, HGBRP, GLURP, CLRP, NARP, BGRP, KRP, CARP #### [address] [address] .NEUABSon 11-28-2021 Neutrophil, Absolute 11.2 10 3/mcL High 2.3-8.1 [facility] ([place]) Comment on above: Performed By: #### H CTRP, HGBRP, GLURP, CLRP, NARP, BGRP, KRP, CARP #### [address] [address] [facility] 11-28-2021 Barometric Pressure 701 mmHg Normal [facility] ([place]) Comment on above: Performed By: #### H CTRP, HGBRP, GLURP, CLRP, NARP, BGRP, KRP, CARP #### [address] [address] Base excess Calc (Bld) [Moles/Vol] 9.8 mmol/L Normal [facility] ([place] Comment on above: Performed By: #### H CTRP, HGBRP, GLURP, CLRP, NARP, BGRP, KRP, CARP #### [address] [address] CO2 [Moles/Vol] 36.7 mmol/L High 22.0-30.0 [facility] ([place] Comment on above: Performed By: #### H CTRP, HGBRP, GLURP, CLRP, NARP, BGRP, KRP, CARP #### [address] [address] HCO3 (Bld) [Moles/Vol] 35.1 mmol/L High 21.0-29.0 [facility] ([place] Comment on above: Performed By: #### H CTRP, HGBRP, GLURP, CLRP, NARP, BGRP, KRP, CARP #### [address] [address] Oxygen (Bld) [Partial pressure] 70.5 mm[Hg] Low 74.0-108.0 [facility] ([place] Comment on above: Performed By: #### H CTRP, HGBRP, GLURP, CLRP, NARP, BGRP, KRP, CARP #### [address] [address] Oxygen saturation in Blood 94.9 % Normal 92.0-96.0 [facility] ([place] Comment on above: Performed By: #### H CTRP, HGBRP, GLURP, CLRP, NARP, BGRP, KRP, CARP #### [address] [address] pCO2 50.4 mmHg High 32.0-46.0 [facility] ([place] Comment on above: Performed By: #### H CTRP, HGBRP, GLURP, CLRP, NARP, BGRP, KRP, CARP #### [address] [address] pH (Bld) 7.461 [pH] High 7.380-7.460 [facility] ([place] Comment on above: Performed By: #### H CTRP, HGBRP, GLURP, CLRP, NARP, BGRP, KRP, CARP #### [address] [address] BMPon 11-28-2021 BUN/Creatinine Ratio 23.3 ratio High 10.0-22.0 [facility] ([place] Comment on above: Performed By: #### H CTRP, HGBRP, GLURP, CLRP, NARP, BGRP, KRP, CARP #### [address] [address] Calcium [Mass/Vol] 9.0 mg/dL Normal 8.7-10.4 [facility] ([place]) Comment on above: Performed By: #### H CTRP, HGBRP, GLURP, CLRP, NARP, BGRP, KRP, CARP #### [address] [address] Chloride [Moles/Vol] 92 mmol/L Low 98-110 [facility] ([place] Comment on above: Performed By: #### H CTRP, HGBRP, GLURP, CLRP, NARP, BGRP, KRP, CARP #### [address] [address] CO2 [Moles/Vol] 37 mmol/L High 22-32 [facility] ([place] Comment on above: Performed By: #### H CTRP, HGBRP, GLURP, CLRP, NARP, BGRP, KRP, CARP #### [address] [address] Creatinine [Mass/Vol] 0.90 mg/dL Normal 0.50-1.20 [facility] ([place]) Comment on above: Performed By: #### H CTRP, HGBRP, GLURP, CLRP, NARP, BGRP, KRP, CARP #### [address] [address] Electrolyte Balance 6.0 mEq/L Normal 4.0-15.0 [facility] ([place] Comment on above: Performed By: #### H CTRP, HGBRP, GLURP, CLRP, NARP, BGRP, KRP, CARP #### [address] [address] Glucose [Mass/Vol] 208 mg/dL High 82-115 [facility] ([place] Comment on above: Performed By: #### H CTRP, HGBRP, GLURP, CLRP, NARP, BGRP, KRP, CARP #### [address] [address] Potassium [Moles/Vol] 3.7 mmol/L Normal 3.5-5.0 [facility] ([place] Comment on above: Performed By: #### H CTRP, HGBRP, GLURP, CLRP, NARP, BGRP, KRP, CARP #### [address] [address] Sodium [Moles/Vol] 135 mmol/L Low 136-145 [facility] ([place] Comment on above: Performed By: #### H CTRP, HGBRP, GLURP, CLRP, NARP, BGRP, KRP, CARP #### [address] [address] Urea nitrogen [Mass/Vol] 21.0 mg/dL Normal 8.0-22.0 [facility] ([place] Comment on above: Performed By: #### H CTRP, HGBRP, GLURP, CLRP, NARP, BGRP, KRP, CARP #### [address] [address] CBCon 11-28-2021 Erythrocyte distribution width (RBC) [Ratio] 14.1 % Normal 11.5-15.5 [facility] ([place] Comment on above: Performed By: #### H CTRP, HGBRP, GLURP, CLRP, NARP, BGRP, KRP, CARP #### [place] [address] Hematocrit (Bld) [Volume fraction] 34.4 % Normal 34.0-46.0 [facility] ([place] Comment on above: Performed By: #### H CTRP, HGBRP, GLURP, CLRP, NARP, BGRP, KRP, CARP #### [place] [address] Hgb 11.2 G/dL Low 12.0-16.0 [facility] ([place] Comment on above: Performed By: #### H CTRP, HGBRP, GLURP, CLRP, NARP, BGRP, KRP, CARP #### [place] [address] MCH (RBC) [Entitic mass] 29.5 pg Normal 27.0-33.0 [facility] ([place] Comment on above: Performed By: #### H CTRP, HGBRP, GLURP, CLRP, NARP, BGRP, KRP, CARP #### [place] [address] MCHC 32.6 G/dL Normal 32.0-36.0 [facility] ([place] Comment on above: Performed By: #### H CTRP, HGBRP, GLURP, CLRP, NARP, BGRP, KRP, CARP #### [place] [id number] MCV (RBC) [Entitic vol] 90.5 fL Normal 80.0-99.0 [facility] ([place]) Comment on above: Performed By: #### H CTRP, HGBRP, GLURP, CLRP, NARP, BGRP, KRP, CARP #### [place] [address] Platelet 353 10 3/mcL Normal 150-450 [facility] ([place] Comment on above: Performed By: #### H CTRP, HGBRP, GLURP, CLRP, NARP, BGRP, KRP, CARP #### [place] [address] Platelet mean volume (Bld) [Entitic vol] 7.9 fL Normal 6.6-10.5 [facility] ([place] Comment on above: Performed By: #### H CTRP, HGBRP, GLURP, CLRP, NARP, BGRP, KRP, CARP #### [place] [address] RBC 3.80 10 6/mcL Low 4.10-5.30 [facility] ([place] Comment on above: Performed By: #### H CTRP, HGBRP, GLURP, CLRP, NARP, BGRP, KRP, CARP #### [place] [address] WBC 14.9 10 3/mcL High 4.5-10.8 [facility] ([place] Comment on above: Performed By: #### H CTRP, HGBRP, GLURP, CLRP, NARP, BGRP, KRP, CARP #### [place] [address] CVFLURVon 11-28-2021 Date of Onset [id number] Invalid Interpretation Code [facility] ([place] Comment on above: Performed By: #### H CTRP, HGBRP, GLURP, CLRP, NARP, BGRP, KRP, CARP #### [place] [address] Employed in Healthcare No Normal [facility] ([place] Comment on above: Performed By: #### H CTRP, HGBRP, GLURP, CLRP, NARP, BGRP, KRP, CARP #### [place] [address] First Test No Normal [facility] ([place] Comment on above: Performed By: #### H CTRP, HGBRP, GLURP, CLRP, NARP, BGRP, KRP, CARP #### [place] [address] FLU A PCR Negative Normal Negative [facility] ([place] Comment on above: Result Comment: Note s Performed By: #### H CTRP, HGBRP, GLURP, CLRP, NARP, BGRP, KRP, CARP #### [place] [address] FLU B PCR Negative Normal Negative [facility] ([place] Comment on above: Result Comment: Note s Performed By: #### H CTRP, HGBRP, GLURP, CLRP, NARP, BGRP, KRP, CARP #### [place] [address] Hospitalized Yes [facility] [place] Comment on above: Performed By: #### H CTRP, HGBRP, GLURP, CLRP, NARP, BGRP, KRP, CARP #### [place] [address] ICU No [facility] [place] Comment on above: Performed By: #### H CTRP, HGBRP, GLURP, CLRP, NARP, BGRP, KRP, CARP #### [place] [address] Not [facility] ([place] Comment on above: Performed By: #### H CTRP, HGBRP, GLURP, CLRP, NARP, BGRP, KRP, CARP #### [place] [address] Resides in Congregate Care Setting No [facility] ([place] Comment on above: Performed By: #### H CTRP, HGBRP, GLURP, CLRP, NARP, BGRP, KRP, CARP #### [place] [address] RSV PCR Negative Normal Negative [facility] ([place] Comment on above: Result Comment: Note s Performed By: #### H CTRP, HGBRP, GLURP, CLRP, NARP, BGRP, KRP, CARP #### [address] [address] SARS-CoV-2 (COVID-19) RNA SLOAN+probe Ql (Unsp spec) Negative Normal Negative [facility] ([place] Comment on above: Result Comment: Note s This test has been authorized by FDA under an EUA for use by authorized laboratories and has not been FDA cleared or approved. Results from the Xpert Xpress SARS-CoV-2/Flu/RSV or Xpert Xpress SARS-CoV-2 only test should be correlated with the clinical history, epidemiological data, and other data available to the clinician evaluating the patient. Performance of the Xpert Xpress SARS-CoV-2/Flu/RSV or Xpert Xpress SARS-CoV-2 only test has only been established in nasopharyngeal swab specimens. Erroneous test results might occur from improper specimen collection; failure to follow the recommended sample collection, handling, and storage procedures; technical error; or sample mix-up.False negative results may occur if virus is present at levels below the analytical limit of detection. Viral nucleic acid may persist in vivo, independent of virus viability. Detection of analyte target(s) does not imply that the corresponding virus(es) are infectious or are the causative agents for clinical symptoms.Recent patient exposure to FluMist or other live attenuated influenza vaccines may cause inaccurate positive results. Performed By: #### H CTRP, HGBRP, GLURP, CLRP, NARP, BGRP, KRP, CARP #### [address] [address] Symptomatic as Defined by CDC No Normal [facility] ([place]) Comment on above: Performed By: #### H CTRP, HGBRP, GLURP, CLRP, NARP, BGRP, KRP, CARP #### [address] [address] LABORATORYOrdered By: Coleen Mckeon on 11-28-2021 Glucose [Mass/Vol] 159 mg/dL Invalid Interpretation Code 82 - 115 mg/dL [facility] Work Phone: LABORATORYOrdered By: Betty Awad on 11-28-2021 Date of Onset [id number] Invalid Interpretation Code AH Auto Viro/Sero SS Employed in Healthcare No (11/28/21 6:58 PM) Invalid Interpretation Code AH Auto Viro/Sero SS First Test No (11/28/21 6:58 PM) Invalid Interpretation Code AH Auto Viro/Sero SS FLUAV RNA SLOAN+probe Ql (Resp) Negative 2 (11/28/21 6:58 PM) Invalid Interpretation Code Negative AH Auto Viro/Sero SS Comment on above: Result Comment: Note s FLUBV RNA SLOAN+probe Ql (Resp) Negative 3 (11/28/21 6:58 PM) Invalid Interpretation Code Negative AH Auto Viro/Sero SS Comment on above: Result Comment: Note s Hospitalized Yes (11/28/21 6:58 PM) Invalid Interpretation Code AH Auto Viro/Sero SS ICU No (11/28/21 6:58 PM) Invalid Interpretation Code AH Auto Viro/Sero SS Not (11/28/21 6:58 PM) Invalid Interpretation Code AH Auto Viro/Sero SS Resides in Congregate Care Setting No (11/28/21 6:58 PM) Invalid Interpretation Code AH Auto Viro/Sero SS RSV PCR Negative 4 (11/28/21 6:58 PM) Invalid Interpretation Code Negative AH Auto Viro/Sero SS Comment on above: Result Comment: Note s SARS-CoV-2 (COVID-19) RNA SLOAN+probe Ql (Resp) Negative 1 (11/28/21 6:58 PM) Invalid Interpretation Code Negative AH Auto Viro/Sero SS Comment on above: Result Comment: Note s Symptomatic as Defined by CDC No (11/28/21 6:58 PM) Invalid Interpretation Code AH Auto Viro/Sero SS LABORATORYOrdered By: Denise Dorsey on 11-28-2021 Blood Glucose Testing Reason Routine (11/28/21 4:40 PM) [facility] Work Phone: LABORATORYOrdered By: SYSTEM SYSTEM on 11-28-2021 Basophils (Bld) [#/Vol] 0.1 103/mcL Invalid Interpretation Code 0.0 - 0.3 10^3/mcL AH Workflow SS Basophils/100 WBC (Bld) 0.8 % Invalid Interpretation Code 0.0 - 2.5 % AH Workflow SS Calcium [Mass/Vol] 9.0 mg/dL Invalid Interpretation Code 8.7 - 10.4 mg/dL ADM SS Chloride [Moles/Vol] 92 mmol/L Invalid Interpretation Code 98 - 110 mEq/L ADM SS CO2 [Moles/Vol] 37 mmol/L Invalid Interpretation Code 22 - 32 mEq/L ADM SS Creatinine [Mass/Vol] 0.90 mg/dL Invalid Interpretation Code 0.50 - 1.20 mg/dL ADM SS Electrolyte Balance 6.0 mEq/L Invalid Interpretation Code 4.0 - 15.0 mEq/L ADM SS Eosinophils (Bld) [#/Vol] 0.4 103/mcL Invalid Interpretation Code 0.0 - 0.7 10^3/mcL Workflow SS Eosinophils/100 WBC (Bld) 2.9 % Invalid Interpretation Code 0.0 - 6.0 % Workflow SS Erythrocyte distribution width (RBC) [Ratio] 14.1 % Invalid Interpretation Code 11.5 - 15.5 % Workflow SS GFR/1.73 sq M.predicted among blacks MDRD (S/P/Bld) [Vol rate/Area] ml/min/1.73sqm Invalid Interpretation Code ADM SS GFR/1.73 sq M.predicted among non-blacks MDRD (S/P/Bld) [Vol rate/Area] ml/min/1.73sqm Invalid Interpretation Code ADM SS Glucose [Mass/Vol] 208 mg/dL Invalid Interpretation Code 82 - 115 mg/dL ADM SS Hematocrit (Bld) [Volume fraction] 34.4 % Invalid Interpretation Code 34.0 - 46.0 % Workflow SS Hemoglobin (Bld) [Mass/Vol] 11.2 G/dL Invalid Interpretation Code 12.0 - 16.0 G/dL Workflow SS Lymphocytes (Bld) [#/Vol] 2.0 103/mcL Invalid Interpretation Code 0.9 - 4.3 10^3/mcL Workflow SS Lymphocytes/100 WBC (Bld) 13.5 % Invalid Interpretation Code 20.0 - 40.0 % Workflow SS MCH (RBC) [Entitic mass] 29.5 pg Invalid Interpretation Code 27.0 - 33.0 pg Workflow SS MCHC 32.6 G/dL Invalid Interpretation Code 32.0 - 36.0 G/dL Workflow SS MCV (RBC) [Entitic vol] 90.5 fL Invalid Interpretation Code 80.0 - 99.0 fL Workflow SS Monocytes (Bld) [#/Vol] 1.1 103/mcL Invalid Interpretation Code 0.1 - 1.4 10^3/mcL AH Workflow SS Monocytes/100 WBC (Bld) 7.7 % Invalid Interpretation Code 2.0 - 13.0 % AH Workflow SS Neutrophils (Bld) [#/Vol] 11.2 103/mcL Invalid Interpretation Code 2.3 - 8.1 10^3/mcL AH Workflow SS Neutrophils/100 WBC (Bld) 75.1 % Invalid Interpretation Code 50.0 - 75.0 % Workflow SS Platelet mean volume (Bld) [Entitic vol] 7.9 fL Invalid Interpretation Code 6.6 - 10.5 fL Workflow SS Platelets (Bld) [#/Vol] 353 103/mcL Invalid Interpretation Code 150 - 450 10^3/mcL AH Workflow SS Potassium [Moles/Vol] 3.7 mmol/L Invalid Interpretation Code 3.5 - 5.0 mEq/L AH ADM SS RBC (Bld) [#/Vol] 3.80 106/mcL Invalid Interpretation Code 4.10 - 5.30 10^6/mcL AH Workflow SS Sodium [Moles/Vol] 135 mmol/L Invalid Interpretation Code 136 - 145 mEq/L AH ADM SS Urea nitrogen [Mass/Vol] 21.0 mg/dL Invalid Interpretation Code 8.0 - 22.0 mg/dL AH ADM SS Urea nitrogen/Creatinine [Mass ratio] 23.3 ratio Invalid Interpretation Code 10.0 - 22.0 ratio AH ADM SS WBC (Bld) [#/Vol] 14.9 103/mcL Invalid Interpretation Code 4.5 - 10.8 10^3/mcL AH Workflow SS LABORATORYOrdered By: Michael Silva on 11-28-2021 Barometric Pressure 701 mm[Hg] Invalid Interpretation Code AH Auto Chem SS Base excess Calc (Bld) [Moles/Vol] 9.8 mmol/L Invalid Interpretation Code AH Auto Chem SS CO2 (Bld) [Partial pressure] 50.4 mm[Hg] Invalid Interpretation Code 32.0 - 46.0 mm Hg AH Auto Chem SS CO2 [Moles/Vol] 36.7 mmol/L Invalid Interpretation Code 22.0 - 30.0 mmol/L AH Auto Chem SS HCO3 (Bld) [Moles/Vol] 35.1 mmol/L Invalid Interpretation Code 21.0 - 29.0 mmol/L AH Auto Chem SS Oxygen (Bld) [Partial pressure] 70.5 mm[Hg] Invalid Interpretation Code 74.0 - 108.0 mm Hg AH Auto Chem SS pH (Bld) 7.461 [pH] Invalid Interpretation Code 7.380 - 7.460 AH Auto Chem SS XR CHEST 2 VIEWSon XR CHEST 2 VIEWS ORIGINAL EXAMINATION: TWO XRAY VIEWS OF THE CHEST 11/28/2021 7:08 am COMPARISON: None. HISTORY: ORDERING SYSTEM PROVIDED HISTORY: Reason for Exam: abnormal lung sounds FINDINGS: Cardiomediastinal silhouette is mildly enlarged. Left subclavian central venous catheter tube tip terminates in the SVC. Small bilateral effusions. Hazy airspace disease at the lung bases. No evidence of a pneumothorax. Sternotomy wires are present in the chest wall. IMPRESSION: Hazy airspace disease at the lung bases with small bilateral effusions. Bibasilar hazy airspace disease. Interpreted by: Nunu Forrest MD Preliminary Report By: Nunu Forrest MD Electronically signed By Nunu Forrest MD Dictated Date: 11/28/2021 8:12:08 AM Prelim Date: 11/28/2021 8:13:29 AM Sign Date: 11/28/2021 8:13:29 AM Ordering Provider: KAELYN Mercado [facility] ([place]) .Auto Diffon 11-27-2021 Basophil, Absolute 0.1 10 3/mcL Normal 0.0-0.3 [facility] ([place]) Comment on above: Performed By: #### H CTRP, HGBRP, GLURP, CLRP, NARP, BGRP, KRP, CARP #### [address] [address] Basophils/100 WBC (Bld) 0.5 % Normal 0.0-2.5 [facility] ([place] Comment on above: Performed By: #### H CTRP, HGBRP, GLURP, CLRP, NARP, BGRP, KRP, CARP #### [address] [address] Eosinophil, Absolute 0.4 10 3/mcL Normal 0.0-0.7 [facility] ([place]) Comment on above: Performed By: #### H CTRP, HGBRP, GLURP, CLRP, NARP, BGRP, KRP, CARP #### [address] [address] Eosinophils/100 WBC (Bld) 2.0 % Normal 0.0-6.0 [facility] ([place] Comment on above: Performed By: #### H CTRP, HGBRP, GLURP, CLRP, NARP, BGRP, KRP, CARP #### [address] [address] Lymphocyte, Absolute 2.2 10 3/mcL Normal 0.9-4.3 [facility] ([place] Comment on above: Performed By: #### H CTRP, HGBRP, GLURP, CLRP, NARP, BGRP, KRP, CARP #### [address] [address] Lymphocytes/100 WBC (Bld) 11.6 % Low 20.0-40.0 [facility] ([place] Comment on above: Performed By: #### H CTRP, HGBRP, GLURP, CLRP, NARP, BGRP, KRP, CARP #### [address] [address] Monocyte, Absolute 1.3 10 3/mcL Normal 0.1-1.4 [facility] ([place] Comment on above: Performed By: #### H CTRP, HGBRP, GLURP, CLRP, NARP, BGRP, KRP, CARP #### [address] [address] Monocytes/100 WBC (Bld) 6.7 % Normal 2.0-13.0 [facility] ([place] Comment on above: Performed By: #### H CTRP, HGBRP, GLURP, CLRP, NARP, BGRP, KRP, CARP #### [address] [address] Neutrophils/100 WBC (Bld) 79.2 % High 50.0-75.0 [facility] ([place] Comment on above: Performed By: #### H CTRP, HGBRP, GLURP, CLRP, NARP, BGRP, KRP, CARP #### [address] [address] .GFRon 11-27-2021 GFR >60 Normal [facility] ([place] Comment on above: Result Comment: GFR Population mean for , Non- Americans Ages 20-29 = 116 mL/min/1.73 sq.m. Ages 30-39 = 107 mL/min/1.73 sq.m. Ages 40-49 = 99 mL/min/1.73 sq.m. Ages 50-59 = 93 mL/min/1.73 sq.m. Ages 60-69 = 85 mL/min/1.73 sq.m. Ages 70+ = 75 mL/min/1.73 sq.m. Chronic Kidney Disease: Less than 60 mL/min/1.73 square meters End Stage Renal Disease: Less than 15 mL/min/1.73 square meters Performed By: #### H CTRP, HGBRP, GLURP, CLRP, NARP, BGRP, KRP, CARP #### [place] [address] GFR Non- >60 Normal [facility] ([place] Comment on above: Result Comment: GFR Population mean for , Non- Americans Ages 20-29 = 116 mL/min/1.73 sq.m. Ages 30-39 = 107 mL/min/1.73 sq.m. Ages 40-49 = 99 mL/min/1.73 sq.m. Ages 50-59 = 93 mL/min/1.73 sq.m. Ages 60-69 = 85 mL/min/1.73 sq.m. Ages 70+ = 75 mL/min/1.73 sq.m. Chronic Kidney Disease: Less than 60 mL/min/1.73 square meters End Stage Renal Disease: Less than 15 mL/min/1.73 square meters Performed By: #### H CTRP, HGBRP, GLURP, CLRP, NARP, BGRP, KRP, CARP #### [address] [address] .NEUABSon 11-27-2021 Neutrophil, Absolute 15.1 10 3/mcL High 2.3-8.1 [facility] ([place] Comment on above: Performed By: #### H CTRP, HGBRP, GLURP, CLRP, NARP, BGRP, KRP, CARP #### [address] [address] BGon 11-27-2021 Barometric Pressure 733 mmHg Normal [facility] ([place]) Comment on above: Performed By: #### H CTRP, HGBRP, GLURP, CLRP, NARP, BGRP, KRP, CARP #### [place] [address] Base excess Calc (Bld) [Moles/Vol] 10.2 mmol/L Normal [facility] ([place] Comment on above: Performed By: #### H CTRP, HGBRP, GLURP, CLRP, NARP, BGRP, KRP, CARP #### [place] [address] CO2 [Moles/Vol] 38.8 mmol/L High 22.0-30.0 [facility] ([place] Comment on above: Performed By: #### H CTRP, HGBRP, GLURP, CLRP, NARP, BGRP, KRP, CARP #### [place] [address] HCO3 (Bld) [Moles/Vol] 37.1 mmol/L High 21.0-29.0 [facility] ([place] Comment on above: Performed By: #### H CTRP, HGBRP, GLURP, CLRP, NARP, BGRP, KRP, CARP #### [place] [id number] Oxygen (Bld) [Partial pressure] 74.1 mm[Hg] Normal 74.0-108.0 [facility] ([place] Comment on above: Performed By: #### H CTRP, HGBRP, GLURP, CLRP, NARP, BGRP, KRP, CARP #### [place] [address] Oxygen saturation in Blood 94.8 % Normal 92.0-96.0 [facility] ([place] Comment on above: Performed By: #### H CTRP, HGBRP, GLURP, CLRP, NARP, BGRP, KRP, CARP #### [place] [id number] pCO2 58.3 mmHg High 32.0-46.0 [facility] ([place] Comment on above: Performed By: #### H CTRP, HGBRP, GLURP, CLRP, NARP, BGRP, KRP, CARP #### [place] [address] pH (Bld) 7.421 [pH] Normal 7.380-7.460 [facility] ([place] Comment on above: Performed By: #### H CTRP, HGBRP, GLURP, CLRP, NARP, BGRP, KRP, CARP #### [place] [address] CBCon 11-27-2021 Erythrocyte distribution width (RBC) [Ratio] 13.6 % Normal 11.5-15.5 [facility] ([place] Comment on above: Performed By: #### H CTRP, HGBRP, GLURP, CLRP, NARP, BGRP, KRP, CARP #### [place] [address] Hematocrit (Bld) [Volume fraction] 35.1 % Normal 34.0-46.0 [facility] ([place] Comment on above: Performed By: #### H CTRP, HGBRP, GLURP, CLRP, NARP, BGRP, KRP, CARP #### [place] [address] Hgb 11.6 G/dL Low 12.0-16.0 [facility] ([place] Comment on above: Performed By: #### H CTRP, HGBRP, GLURP, CLRP, NARP, BGRP, KRP, CARP #### [place] [address] MCH (RBC) [Entitic mass] 29.7 pg Normal 27.0-33.0 [facility] ([place] Comment on above: Performed By: #### H CTRP, HGBRP, GLURP, CLRP, NARP, BGRP, KRP, CARP #### [place] [address] MCHC 32.9 G/dL Normal 32.0-36.0 [facility] ([place] Comment on above: Performed By: #### H CTRP, HGBRP, GLURP, CLRP, NARP, BGRP, KRP, CARP #### [place] [address] MCV (RBC) [Entitic vol] 90.3 fL Normal 80.0-99.0 [facility] ([place] Comment on above: Performed By: #### H CTRP, HGBRP, GLURP, CLRP, NARP, BGRP, KRP, CARP #### [place] [address] Platelet 322 10 3/mcL Normal 150-450 [facility] ([place] Comment on above: Performed By: #### H CTRP, HGBRP, GLURP, CLRP, NARP, BGRP, KRP, CARP #### [place] [address] Platelet mean volume (Bld) [Entitic vol] 8.0 fL Normal 6.6-10.5 [facility] [facility] ([place] Comment on above: Performed By: #### H CTRP, HGBRP, GLURP, CLRP, NARP, BGRP, KRP, CARP #### [place] [address] RBC 3.89 10 6/mcL Low 4.10-5.30 [facility] ([place]) Comment on above: Performed By: #### H CTRP, HGBRP, GLURP, CLRP, NARP, BGRP, KRP, CARP #### [place] [address] WBC 19.1 10 3/mcL High 4.5-10.8 [facility] ([place]) Comment on above: Performed By: #### H CTRP, HGBRP, GLURP, CLRP, NARP, BGRP, KRP, CARP #### [address] [address] CMPon 11-27-2021 Albumin Level 3.4 G/dL Normal 3.2-4.8 [facility] ([place] Comment on above: Performed By: #### H CTRP, HGBRP, GLURP, CLRP, NARP, BGRP, KRP, CARP #### [address] [address] Albumin/Globulin [Mass ratio] 1.0 {ratio} Normal 0.9-1.6 [facility] ([place] Comment on above: Performed By: #### H CTRP, HGBRP, GLURP, CLRP, NARP, BGRP, KRP, CARP #### [address] [address] ALP [Catalytic activity/Vol] 79 U/L Normal 38-126 [facility] ([place] Comment on above: Performed By: #### H CTRP, HGBRP, GLURP, CLRP, NARP, BGRP, KRP, CARP #### [address] [address] ALT [Catalytic activity/Vol] 20 U/L Normal 10-49 [facility] ([place] Comment on above: Performed By: #### H CTRP, HGBRP, GLURP, CLRP, NARP, BGRP, KRP, CARP #### [address] [address] AST [Catalytic activity/Vol] 20 U/L Normal 8-34 [facility] ([place] Comment on above: Performed By: #### H CTRP, HGBRP, GLURP, CLRP, NARP, BGRP, KRP, CARP #### [address] [address] Bili Total 0.80 mg/dL Normal 0.20-1.20 [facility] ([place] Comment on above: Result Comment: Use of this assay is not recommended for patients undergoing treatment with eltrombopag due to the potential for falsely elevated results. Performed By: #### H CTRP, HGBRP, GLURP, CLRP, NARP, BGRP, KRP, CARP #### [address] [address] BUN/Creatinine Ratio 21.4 ratio Normal 10.0-22.0 [facility] ([place]) Comment on above: Performed By: #### H CTRP, HGBRP, GLURP, CLRP, NARP, BGRP, KRP, CARP #### [address] [address] Calcium [Mass/Vol] 9.0 mg/dL Normal 8.7-10.4 [facility] ([place] Comment on above: Performed By: #### H CTRP, HGBRP, GLURP, CLRP, NARP, BGRP, KRP, CARP #### [address] [address] Chloride [Moles/Vol] 96 mmol/L Low 98-110 [facility] ([place] Comment on above: Performed By: #### H CTRP, HGBRP, GLURP, CLRP, NARP, BGRP, KRP, CARP #### [address] [address] CO2 [Moles/Vol] 33 mmol/L High 22-32 [facility] ([place] Comment on above: Performed By: #### H CTRP, HGBRP, GLURP, CLRP, NARP, BGRP, KRP, CARP #### [address] [address] Creatinine [Mass/Vol] 0.70 mg/dL Normal 0.50-1.20 [facility] ([place]) Comment on above: Performed By: #### H CTRP, HGBRP, GLURP, CLRP, NARP, BGRP, KRP, CARP #### [address] [address] Electrolyte Balance 6.0 mEq/L Normal 4.0-15.0 [facility] ([place]) Comment on above: Performed By: #### H CTRP, HGBRP, GLURP, CLRP, NARP, BGRP, KRP, CARP #### [address] [address] Globulin 3.4 G/dL Normal 1.5-3.8 [facility] ([place] Comment on above: Performed By: #### H CTRP, HGBRP, GLURP, CLRP, NARP, BGRP, KRP, CARP #### [address] [address] Glucose [Mass/Vol] 142 mg/dL High 82-115 [facility] ([place] Comment on above: Performed By: #### H CTRP, HGBRP, GLURP, CLRP, NARP, BGRP, KRP, CARP #### [address] [address] Potassium [Moles/Vol] 4.1 mmol/L Normal 3.5-5.0 [facility] [place] Comment on above: Performed By: #### H CTRP, HGBRP, GLURP, CLRP, NARP, BGRP, KRP, CARP #### [address] [address] Sodium [Moles/Vol] 135 mmol/L Low 136-145 [facility] ([place] Comment on above: Performed By: #### H CTRP, HGBRP, GLURP, CLRP, NARP, BGRP, KRP, CARP #### [address] [address] Total Protein 6.8 G/dL Normal 5.7-8.2 [facility] ([place] Comment on above: Result Comment: No te - New Reference Range in effect 19 Performed By: #### H CTRP, HGBRP, GLURP, CLRP, NARP, BGRP, KRP, CARP #### [address] [address] Urea nitrogen [Mass/Vol] 15.0 mg/dL Normal 8.0-22.0 [facility] ([place] Comment on above: Performed By: #### H CTRP, HGBRP, GLURP, CLRP, NARP, BGRP, KRP, CARP #### [place] [address] LABORATORYOrdered By: SYSTEM SYSTEM on 11-27-2021 Albumin BCP dye [Mass/Vol] 3.4 G/dL Invalid Interpretation Code 3.2 - 4.8 G/dL AH ADM SS Albumin/Globulin [Mass ratio] 1.0 {ratio} Invalid Interpretation Code 0.9 - 1.6 ratio AH ADM SS ALP [Catalytic activity/Vol] 79 U/L Invalid Interpretation Code 38 - 126 U/L AH ADM SS ALT No additional P-5'-P [Catalytic activity/Vol] 20 U/L Invalid Interpretation Code 10 - 49 U/L AH ADM SS AST [Catalytic activity/Vol] 20 U/L Invalid Interpretation Code 8 - 34 U/L AH ADM SS Basophils (Bld) [#/Vol] 0.1 103/mcL Invalid Interpretation Code 0.0 - 0.3 10^3/mcL AH Workflow SS Basophils/100 WBC (Bld) 0.5 % Invalid Interpretation Code 0.0 - 2.5 % AH Workflow SS Bilirubin [Mass/Vol] 0.80 mg/dL Invalid Interpretation Code 0.20 - 1.20 mg/dL AH ADM SS Calcium [Mass/Vol] 9.0 mg/dL Invalid Interpretation Code 8.7 - 10.4 mg/dL AH ADM SS Chloride [Moles/Vol] 96 mmol/L Invalid Interpretation Code 98 - 110 mEq/L AH ADM SS CO2 [Moles/Vol] 33 mmol/L Invalid Interpretation Code 22 - 32 mEq/L ADM SS Creatinine [Mass/Vol] 0.70 mg/dL Invalid Interpretation Code 0.50 - 1.20 mg/dL AH ADM SS Electrolyte Balance 6.0 mEq/L Invalid Interpretation Code 4.0 - 15.0 mEq/L AH ADM SS Eosinophils (Bld) [#/Vol] 0.4 103/mcL Invalid Interpretation Code 0.0 - 0.7 10^3/mcL AH Workflow SS Eosinophils/100 WBC (Bld) 2.0 % Invalid Interpretation Code 0.0 - 6.0 % AH Workflow SS Erythrocyte distribution width (RBC) [Ratio] 13.6 % Invalid Interpretation Code 11.5 - 15.5 % AH Workflow SS GFR/1.73 sq M.predicted among blacks MDRD (S/P/Bld) [Vol rate/Area] ml/min/1.73sqm Invalid Interpretation Code ADM SS GFR/1.73 sq M.predicted among non-blacks MDRD (S/P/Bld) [Vol rate/Area] ml/min/1.73sqm Invalid Interpretation Code ADM SS Globulin 3.4 G/dL Invalid Interpretation Code 1.5 - 3.8 G/dL ADM SS Glucose [Mass/Vol] 142 mg/dL Invalid Interpretation Code 82 - 115 mg/dL ADM SS Hematocrit (Bld) [Volume fraction] 35.1 % Invalid Interpretation Code 34.0 - 46.0 % AH Workflow SS Hemoglobin (Bld) [Mass/Vol] 11.6 G/dL Invalid Interpretation Code 12.0 - 16.0 G/dL AH Workflow SS Lymphocytes (Bld) [#/Vol] 2.2 103/mcL Invalid Interpretation Code 0.9 - 4.3 10^3/mcL AH Workflow SS Lymphocytes/100 WBC (Bld) 11.6 % Invalid Interpretation Code 20.0 - 40.0 % AH Workflow SS MCH (RBC) [Entitic mass] 29.7 pg Invalid Interpretation Code 27.0 - 33.0 pg AH Workflow SS MCHC 32.9 G/dL Invalid Interpretation Code 32.0 - 36.0 G/dL AH Workflow SS MCV (RBC) [Entitic vol] 90.3 fL Invalid Interpretation Code 80.0 - 99.0 fL AH Workflow SS Monocytes (Bld) [#/Vol] 1.3 103/mcL Invalid Interpretation Code 0.1 - 1.4 10^3/mcL AH Workflow SS Monocytes/100 WBC (Bld) 6.7 % Invalid Interpretation Code 2.0 - 13.0 % AH Workflow SS Neutrophils (Bld) [#/Vol] 15.1 103/mcL Invalid Interpretation Code 2.3 - 8.1 10^3/mcL AH Workflow SS Neutrophils/100 WBC (Bld) 79.2 % Invalid Interpretation Code 50.0 - 75.0 % AH Workflow SS Platelet mean volume (Bld) [Entitic vol] 8.0 fL Invalid Interpretation Code 6.6 - 10.5 fL AH Workflow SS Platelets (Bld) [#/Vol] 322 103/mcL Invalid Interpretation Code 150 - 450 10^3/mcL AH Workflow SS Potassium [Moles/Vol] 4.1 mmol/L Invalid Interpretation Code 3.5 - 5.0 mEq/L AH ADM SS Protein [Mass/Vol] 6.8 G/dL Invalid Interpretation Code 5.7 - 8.2 G/dL ADM SS RBC (Bld) [#/Vol] 3.89 106/mcL Invalid Interpretation Code 4.10 - 5.30 10^6/mcL Workflow SS Sodium [Moles/Vol] 135 mmol/L Invalid Interpretation Code 136 - 145 mEq/L ADM SS Urea nitrogen [Mass/Vol] 15.0 mg/dL Invalid Interpretation Code 8.0 - 22.0 mg/dL ADM SS Urea nitrogen/Creatinine [Mass ratio] 21.4 ratio Invalid Interpretation Code 10.0 - 22.0 ratio AH ADM SS WBC (Bld) [#/Vol] 19.1 103/mcL Invalid Interpretation Code 4.5 - 10.8 10^3/mcL Workflow SS XR CHEST 2 VIEWSon XR CHEST 2 VIEWS ORIGINAL EXAMINATION: TWO XRAY VIEWS OF THE CHEST 11/27/2021 5:39 am COMPARISON: None. HISTORY: ORDERING SYSTEM PROVIDED HISTORY: Reason for Exam: abnormal breath sounds FINDINGS: Sternotomy wires are present in the chest wall. Left subclavian central venous catheter tube tip terminates in the SVC. Small bilateral effusions. Adjacent hazy airspace disease. No pneumothorax. Moderate cardiomegaly. No focal consolidation. IMPRESSION: Small bilateral effusions with adjacent hazy airspace disease. Moderate cardiomegaly. Findings could represent congestion/edema versus developing infectious or inflammatory process. Interpreted by: Nunu Forrest MD Preliminary Report By: Nunu oFrrest MD Electronically signed By Nunu Forrest MD Dictated Date: 11/27/2021 7:51:00 AM Prelim Date: 11/27/2021 7:51:49 AM Sign Date: 11/27/2021 7:51:49 AM Ordering Provider: NAT Mercado [facility] ([place]) .Auto Diffon 11-26-2021 Basophil, Absolute 0.1 10 3/mcL Normal 0.0-0.3 [facility] ([place]) Basophils/100 WBC (Bld) 0.4 % Normal 0.0-2.5 A [facility]) Eosinophil, Absolute 0.1 10 3/mcL Normal 0.0-0.7 [facility] [place]) Eosinophils/100 WBC (Bld) 0.7 % Normal 0.0-6.0 [facility] ([place]) Lymphocyte, Absolute 2.2 10 3/mcL Normal 0.9-4.3 [facility] [place]) Lymphocytes/100 WBC (Bld) 11.0 % Low 20.0-40.0 [facility] [place]) Monocyte, Absolute 1.5 10 3/mcL High 0.1-1.4 [facility] ([place]) Monocytes/100 WBC (Bld) 7.4 % Normal 2.0-13.0 [facility] ([place]) Neutrophils/100 WBC (Bld) 80.5 % High 50.0-75.0 [facility] ([place] Basophil, Absolute 0.1 10 3/mcL Normal 0.0-0.3 [facility] ([place]) Comment on above: Performed By: #### H CTRP, HGBRP, GLURP, CLRP, NARP, BGRP, KRP, CARP #### [address] [address] Basophils/100 WBC (Bld) 0.4 % Normal 0.0-2.5 [facility] [place] Comment on above: Performed By: #### H CTRP, HGBRP, GLURP, CLRP, NARP, BGRP, KRP, CARP #### [address] [address] Eosinophil, Absolute 0.1 10 3/mcL Normal 0.0-0.7 [facility] ([place]) Comment on above: Performed By: #### H CTRP, HGBRP, GLURP, CLRP, NARP, BGRP, KRP, CARP #### [address] [address] Eosinophils/100 WBC (Bld) 0.5 % Normal 0.0-6.0 [facility] ([place] Comment on above: Performed By: #### H CTRP, HGBRP, GLURP, CLRP, NARP, BGRP, KRP, CARP #### [address] [address] Lymphocyte, Absolute 2.0 10 3/mcL Normal 0.9-4.3 [facility] ([place]) Comment on above: Performed By: #### H CTRP, HGBRP, GLURP, CLRP, NARP, BGRP, KRP, CARP #### [address] [address] Lymphocytes/100 WBC (Bld) 10.0 % Low 20.0-40.0 [facility] ([place] Comment on above: Performed By: #### H CTRP, HGBRP, GLURP, CLRP, NARP, BGRP, KRP, CARP #### [address] [address] Monocyte, Absolute 1.5 10 3/mcL High 0.1-1.4 [facility] ([place] Comment on above: Performed By: #### H CTRP, HGBRP, GLURP, CLRP, NARP, BGRP, KRP, CARP #### [address] [address] Monocytes/100 WBC (Bld) 7.5 % Normal 2.0-13.0 [facility] ([place] Comment on above: Performed By: #### H CTRP, HGBRP, GLURP, CLRP, NARP, BGRP, KRP, CARP #### [address] [address] Neutrophils/100 WBC (Bld) 81.6 % High 50.0-75.0 [facility] ([place] Comment on above: Performed By: #### H CTRP, HGBRP, GLURP, CLRP, NARP, BGRP, KRP, CARP #### [address] [address] .GFRon 11-26-2021 GFR >60 Normal [facility] ([place]) Comment on above: Result Comment: GFR Population mean for , Non- Americans Ages 20-29 = 116 mL/min/1.73 sq.m. Ages 30-39 = 107 mL/min/1.73 sq.m. Ages 40-49 = 99 mL/min/1.73 sq.m. Ages 50-59 = 93 mL/min/1.73 sq.m. Ages 60-69 = 85 mL/min/1.73 sq.m. Ages 70+ = 75 mL/min/1.73 sq.m. Chronic Kidney Disease: Less than 60 mL/min/1.73 square meters End Stage Renal Disease: Less than 15 mL/min/1.73 square meters Performed By: #### H CTRP, HGBRP, GLURP, CLRP, NARP, BGRP, KRP, CARP #### [address] [address] GFR Non- >60 Normal [facility] ([place] Comment on above: Result Comment: GFR Population mean for , Non- Americans Ages 20-29 = 116 mL/min/1.73 sq.m. Ages 30-39 = 107 mL/min/1.73 sq.m. Ages 40-49 = 99 mL/min/1.73 sq.m. Ages 50-59 = 93 mL/min/1.73 sq.m. Ages 60-69 = 85 mL/min/1.73 sq.m. Ages 70+ = 75 mL/min/1.73 sq.m. Chronic Kidney Disease: Less than 60 mL/min/1.73 square meters End Stage Renal Disease: Less than 15 mL/min/1.73 square meters Performed By: #### H CTRP, HGBRP, GLURP, CLRP, NARP, BGRP, KRP, CARP #### [address] [address] .NEUABSon 11-26-2021 Neutrophil, Absolute 16.0 10 3/mcL High 2.3-8.1 [facility] [place] Neutrophil, Absolute 16.6 10 3/mcL High 2.3-8.1 [facility] ([place] Comment on above: Performed By: #### H CTRP, HGBRP, GLURP, CLRP, NARP, BGRP, KRP, CARP #### [address] [address] BGon 11-26-2021 Barometric Pressure 734 mmHg Normal [facility] ([place]) Comment on above: Performed By: #### H CTRP, HGBRP, GLURP, CLRP, NARP, BGRP, KRP, CARP #### [address] [address] Base excess Calc (Bld) [Moles/Vol] 11.2 mmol/L Normal [facility] ([place] Comment on above: Performed By: #### H CTRP, HGBRP, GLURP, CLRP, NARP, BGRP, KRP, CARP #### [address] [address] CO2 [Moles/Vol] 39.8 mmol/L High 22.0-30.0 [facility] ([place] Comment on above: Performed By: #### H CTRP, HGBRP, GLURP, CLRP, NARP, BGRP, KRP, CARP #### [address] [address] HCO3 (Bld) [Moles/Vol] 38.0 mmol/L High 21.0-29.0 [facility] ([place] Comment on above: Performed By: #### H CTRP, HGBRP, GLURP, CLRP, NARP, BGRP, KRP, CARP #### [address] [address] Oxygen (Bld) [Partial pressure] 68.4 mm[Hg] Low 74.0-108.0 [facility] ([place] Comment on above: Performed By: #### H CTRP, HGBRP, GLURP, CLRP, NARP, BGRP, KRP, CARP #### [address] [address] Oxygen saturation in Blood 93.8 % Normal 92.0-96.0 [facility] ([place] Comment on above: Performed By: #### H CTRP, HGBRP, GLURP, CLRP, NARP, BGRP, KRP, CARP #### [address] [address] pCO2 57.9 mmHg High 32.0-46.0 [facility] ([place] Comment on above: Performed By: #### H CTRP, HGBRP, GLURP, CLRP, NARP, BGRP, KRP, CARP #### [address] [address] pH (Bld) 7.435 [pH] Normal 7.380-7.460 [facility] ([place] Comment on above: Performed By: #### H CTRP, HGBRP, GLURP, CLRP, NARP, BGRP, KRP, CARP #### [address] [address] Barometric Pressure 711 mmHg Normal [facility] ([place] Comment on above: Performed By: #### H CTRP, HGBRP, GLURP, CLRP, NARP, BGRP, KRP, CARP #### [address] [address] Base excess Calc (Bld) [Moles/Vol] 3.2 mmol/L Normal [facility] ([place] Comment on above: Performed By: #### H CTRP, HGBRP, GLURP, CLRP, NARP, BGRP, KRP, CARP #### [address] [address] CO2 [Moles/Vol] 30.3 mmol/L High 22.0-30.0 [facility] ([place] Comment on above: Performed By: #### H CTRP, HGBRP, GLURP, CLRP, NARP, BGRP, KRP, CARP #### [address] [address] HCO3 (Bld) [Moles/Vol] 28.8 mmol/L Normal 21.0-29.0 [facility] [place] Comment on above: Performed By: #### H CTRP, HGBRP, GLURP, CLRP, NARP, BGRP, KRP, CARP #### [address] [address] Oxygen (Bld) [Partial pressure] 103.1 mm[Hg] Normal 74.0-108.0 [facility] ([place] Comment on above: Performed By: #### H CTRP, HGBRP, GLURP, CLRP, NARP, BGRP, KRP, CARP #### [address] [address] Oxygen saturation in Blood 97.9 % High 92.0-96.0 [facility] [place] Comment on above: Performed By: #### H CTRP, HGBRP, GLURP, CLRP, NARP, BGRP, KRP, CARP #### [address] [address] pCO2 48.2 mmHg High 32.0-46.0 [facility] ([place] Comment on above: Performed By: #### H CTRP, HGBRP, GLURP, CLRP, NARP, BGRP, KRP, CARP #### [place] [address] pH (Bld) 7.394 [pH] Normal 7.380-7.460 [facility] ([place] Comment on above: Performed By: #### H CTRP, HGBRP, GLURP, CLRP, NARP, BGRP, KRP, CARP #### [address] [address] BMPon 11-26-2021 BUN/Creatinine Ratio 26.5 ratio High 10.0-22.0 [facility] ([place] Comment on above: Performed By: #### H CTRP, HGBRP, GLURP, CLRP, NARP, BGRP, KRP, CARP #### [address] [address] Calcium [Mass/Vol] 8.3 mg/dL Low 8.7-10.4 [facility] ([place] Comment on above: Performed By: #### H CTRP, HGBRP, GLURP, CLRP, NARP, BGRP, KRP, CARP #### [address] [address] Chloride [Moles/Vol] 98 mmol/L Normal 98-110 [facility] ([place] Comment on above: Performed By: #### H CTRP, HGBRP, GLURP, CLRP, NARP, BGRP, KRP, CARP #### [address] [address] CO2 [Moles/Vol] 28 mmol/L Normal 22-32 [facility] ([place] Comment on above: Performed By: #### H CTRP, HGBRP, GLURP, CLRP, NARP, BGRP, KRP, CARP #### [address] [address] Creatinine [Mass/Vol] 0.68 mg/dL Normal 0.50-1.20 [facility] ([place] Comment on above: Performed By: #### H CTRP, HGBRP, GLURP, CLRP, NARP, BGRP, KRP, CARP #### [address] [address] Electrolyte Balance 7.0 mEq/L Normal 4.0-15.0 [facility] ([place] Comment on above: Performed By: #### H CTRP, HGBRP, GLURP, CLRP, NARP, BGRP, KRP, CARP #### [address] [address] Glucose [Mass/Vol] 176 mg/dL High 82-115 [facility] ([place] Comment on above: Performed By: #### H CTRP, HGBRP, GLURP, CLRP, NARP, BGRP, KRP, CARP #### [address] [address] Potassium [Moles/Vol] 4.2 mmol/L Normal 3.5-5.0 [facility] ([place] Comment on above: Performed By: #### H CTRP, HGBRP, GLURP, CLRP, NARP, BGRP, KRP, CARP #### [address] [address] Sodium [Moles/Vol] 133 mmol/L Low 136-145 [facility] ([place] Comment on above: Performed By: #### H CTRP, HGBRP, GLURP, CLRP, NARP, BGRP, KRP, CARP #### [address] [address] Urea nitrogen [Mass/Vol] 18.0 mg/dL Normal 8.0-22.0 [facility] ([place] Comment on above: Performed By: #### H CTRP, HGBRP, GLURP, CLRP, NARP, BGRP, KRP, CARP #### [address] [address] CBCon 11-26-2021 Erythrocyte distribution width (RBC) [Ratio] 14.1 % Normal 11.5-15.5 [facility] [place] Hematocrit (Bld) [Volume fraction] 31.3 % Low 34.0-46.0 [facility] [place] Hgb 10.5 G/dL Low 12.0-16.0 [facility] [place] MCH (RBC) [Entitic mass] 30.1 pg Normal 27.0-33.0 [facility] [place] MCHC 33.5 G/dL Normal 32.0-36.0 [facility] [place] MCV (RBC) [Entitic vol] 89.8 fL Normal 80.0-99.0 [facility] ([place]) Platelet 268 10 3/mcL Normal 150-450 [facility] [place] Platelet mean volume (Bld) [Entitic vol] 8.4 fL Normal 6.6-10.5 [facility]) RBC 3.49 10 6/mcL Low 4.10-5.30 [facility] [place] WBC 19.8 10 3/mcL High 4.5-10.8 [facility] [place] Erythrocyte distribution width (RBC) [Ratio] 14.0 % Normal 11.5-15.5 [facility]) Comment on above: Performed By: #### H CTRP, HGBRP, GLURP, CLRP, NARP, BGRP, KRP, CARP #### [address] [address] Hematocrit (Bld) [Volume fraction] 31.7 % Low 34.0-46.0 [facility] ([place] Comment on above: Performed By: #### H CTRP, HGBRP, GLURP, CLRP, NARP, BGRP, KRP, CARP #### [place] [address] Hgb 10.3 G/dL Low 12.0-16.0 [facility] ([place] Comment on above: Performed By: #### H CTRP, HGBRP, GLURP, CLRP, NARP, BGRP, KRP, CARP #### [place] [id number] MCH (RBC) [Entitic mass] 29.6 pg Normal 27.0-33.0 [facility] ([place] Comment on above: Performed By: #### H CTRP, HGBRP, GLURP, CLRP, NARP, BGRP, KRP, CARP #### [place] [address] MCHC 32.7 G/dL Normal 32.0-36.0 [facility] ([place] Comment on above: Performed By: #### H CTRP, HGBRP, GLURP, CLRP, NARP, BGRP, KRP, CARP #### [place] [address] MCV (RBC) [Entitic vol] 90.7 fL Normal 80.0-99.0 [facility] [place] Comment on above: Performed By: #### H CTRP, HGBRP, GLURP, CLRP, NARP, BGRP, KRP, CARP #### [place] [address] Platelet 243 10 3/mcL Normal 150-450 [facility] ([place] Comment on above: Performed By: #### H CTRP, HGBRP, GLURP, CLRP, NARP, BGRP, KRP, CARP #### [place] [id number] Platelet mean volume (Bld) [Entitic vol] 8.6 fL Normal 6.6-10.5 [facility] ([place] Comment on above: Performed By: #### H CTRP, HGBRP, GLURP, CLRP, NARP, BGRP, KRP, CARP #### [place] [address] RBC 3.49 10 6/mcL Low 4.10-5.30 [facility] ([place]) Comment on above: Performed By: #### H CTRP, HGBRP, GLURP, CLRP, NARP, BGRP, KRP, CARP #### [facility] [address] [place] [id number] WBC 20.3 10 3/mcL High 4.5-10.8 [facility] ([place] Comment on above: Performed By: #### H CTRP, HGBRP, GLURP, CLRP, NARP, BGRP, KRP, CARP #### [facility] [address] [place] [id number] LABORATORYOrdered By: Nicci erickson on 11-26-2021 Barometric Pressure 733 mm[Hg] Invalid Interpretation Code AH Auto Chem SS Base excess Calc (Bld) [Moles/Vol] 10.2 mmol/L Invalid Interpretation Code AH Auto Chem SS CO2 (Bld) [Partial pressure] 58.3 mm[Hg] Invalid Interpretation Code 32.0 - 46.0 mm Hg AH Auto Chem SS CO2 [Moles/Vol] 38.8 mmol/L Invalid Interpretation Code 22.0 - 30.0 mmol/L AH Auto Chem SS HCO3 (Bld) [Moles/Vol] 37.1 mmol/L Invalid Interpretation Code 21.0 - 29.0 mmol/L AH Auto Chem SS Oxygen (Bld) [Partial pressure] 74.1 mm[Hg] Invalid Interpretation Code 74.0 - 108.0 mm Hg AH Auto Chem SS pH (Bld) 7.421 [pH] Invalid Interpretation Code 7.380 - 7.460 AH Auto Chem SS LABORATORYOrdered By: Coleen Perez on 11-26-2021 Barometric Pressure 734 mm[Hg] Invalid Interpretation Code AH Auto Chem SS Base excess Calc (Bld) [Moles/Vol] 11.2 mmol/L Invalid Interpretation Code AH Auto Chem SS CO2 (Bld) [Partial pressure] 57.9 mm[Hg] Invalid Interpretation Code 32.0 - 46.0 mm Hg AH Auto Chem SS CO2 [Moles/Vol] 39.8 mmol/L Invalid Interpretation Code 22.0 - 30.0 mmol/L AH Auto Chem SS HCO3 (Bld) [Moles/Vol] 38.0 mmol/L Invalid Interpretation Code 21.0 - 29.0 mmol/L AH Auto Chem SS Oxygen (Bld) [Partial pressure] 68.4 mm[Hg] Invalid Interpretation Code 74.0 - 108.0 mm Hg AH Auto Chem SS pH (Bld) 7.435 [pH] Invalid Interpretation Code 7.380 - 7.460 AH Auto Chem SS LABORATORYOrdered By: Van Bourne on 11-26-2021 Appearance (U) Clear (11/26/21 7:27 AM) Invalid Interpretation Code Clear AH Auto Urine SS Bilirubin Ql (U) Negative (11/26/21 7:27 AM) Invalid Interpretation Code Neg-Trace AH Auto Urine SS Color (U) Yellow (11/26/21 7:27 AM) Invalid Interpretation Code AH Auto Urine SS Glucose Test strip (U) [Mass/Vol] 100 mg/dL Invalid Interpretation Code Negativemg/ dL AH Auto Urine SS Hemoglobin Auto test strip (U) [Mass/Vol] Negative (11/26/21 7:27 AM) Invalid Interpretation Code Neg-Trace AH Auto Urine SS Ketones Ql (U) 15 mg/dL Invalid Interpretation Code Neg-Tracemg /dL AH Auto Urine SS UA Leuk Est Negative (11/26/21 7:27 AM) Invalid Interpretation Code Negative AH Auto Urine SS UA Nitrite Negative (11/26/21 7:27 AM) Invalid Interpretation Code Negative AH Auto Urine SS UA pH 5.0 (11/26/21 7:27 AM) Invalid Interpretation Code 5.0 - 8.0 AH Auto Urine SS UA Protein Negative Invalid Interpretation Code Negativemg/ dL AH Auto Urine SS UA Spec Grav 1.015 (11/26/21 7:27 AM) Invalid Interpretation Code 1.006-1.029 AH Auto Urine SS UA Specimen Type Catheter (11/26/21 7:27 AM) Invalid Interpretation Code AH Auto Urine SS UA Urobilinogen 0.2 E.U./dL Invalid Interpretation Code 0.2-1.0E.U. /dL AH Auto Urine SS No Panel Informationon 11-26 Culture Urine No growth at 48 hours. [facility] Work Phone: UAon 11-26-2021 Color (U) Yellow Normal [facility] ([place] Comment on above: Performed By: #### H CTRP, HGBRP, GLURP, CLRP, NARP, BGRP, KRP, CARP #### [place] [address] Glucose (U) [Mass/Vol] 100 mg/dL Abnormal Negative [facility] ([place] Comment on above: Performed By: #### H CTRP, HGBRP, GLURP, CLRP, NARP, BGRP, KRP, CARP #### [place] [address] Ketones Ql (U) 15 mg/dL Abnormal Neg-Trace [facility] ([place] Comment on above: Performed By: #### H CTRP, HGBRP, GLURP, CLRP, NARP, BGRP, KRP, CARP #### [place] [address] UA Appear Clear Normal Clear [facility] ([place] Comment on above: Performed By: #### H CTRP, HGBRP, GLURP, CLRP, NARP, BGRP, KRP, CARP #### [place] [address] UA Blood Negative Normal Neg-Trace [facility] ([place] Comment on above: Performed By: #### H CTRP, HGBRP, GLURP, CLRP, NARP, BGRP, KRP, CARP #### [place] [address] UA Leuk Est Negative Normal Negative [facility] ([place] Comment on above: Performed By: #### H CTRP, HGBRP, GLURP, CLRP, NARP, BGRP, KRP, CARP #### [address] [address] UA Nitrite Negative Normal Negative [facility] ([place] Comment on above: Performed By: #### H CTRP, HGBRP, GLURP, CLRP, NARP, BGRP, KRP, CARP #### [place] [address] UA pH 5.0 Normal 5.0 - 8.0 [facility] ([place] Comment on above: Performed By: #### H CTRP, HGBRP, GLURP, CLRP, NARP, BGRP, KRP, CARP #### [place] [address] UA Protein Negative Normal Negative [facility] ([place] Comment on above: Performed By: #### H CTRP, HGBRP, GLURP, CLRP, NARP, BGRP, KRP, CARP #### [place] [address] UA Spec Grav 1.015 Normal 1.006-1.029 [facility] ([place] Comment on above: Performed By: #### H CTRP, HGBRP, GLURP, CLRP, NARP, BGRP, KRP, CARP #### [place] [address] UA Specimen Type Catheter Normal [facility] ([place] Comment on above: Performed By: #### H CTRP, HGBRP, GLURP, CLRP, NARP, BGRP, KRP, CARP #### [place] [address] UA Urobilinogen 0.2 E.U./dL Normal 0.2-1.0 [facility] ([place] Comment on above: Performed By: #### H CTRP, HGBRP, GLURP, CLRP, NARP, BGRP, KRP, CARP #### [place] [address] Urobilinogen (U) [Mass/Vol] Negative Normal Neg-Trace [facility] ([place] Comment on above: Performed By: #### H CTRP, HGBRP, GLURP, CLRP, NARP, BGRP, KRP, CARP #### [place] [address] XR CHEST 1 VIEWon 11-26-2021 XR CHEST 1 VIEW ORIGINAL EXAMINATION: ONE XRAY VIEW OF THE CHEST 11/26/2021 9:23 pm COMPARISON: Radiograph of the chest November 26, 2021 HISTORY: ORDERING SYSTEM PROVIDED HISTORY: Reason for Exam: Shortness of Breath FINDINGS: Cardiomediastinal silhouette unchanged. Sternotomy postsurgical changes. Left subclavian catheter unchanged position. Mild pulmonary vascular prominence. Unchanged infrahilar and left basilar opacities with small left effusion. Osseous structures unchanged. IMPRESSION: No significant change from prior examination. Interpreted by: Antwan Fountain Preliminary Report By: Antwan Fountain Electronically signed By Antwan Fountain Dictated Date: 11/26/2021 9:24:20 PM Prelim Date: 11/26/2021 9:26:00 PM Sign Date: 11/26/2021 9:26:00 PM Ordering Provider: AL KOHLER [facility] ([place] XR CHEST 1 VIEW ORIGINAL EXAMINATION: ONE XRAY VIEW OF THE CHEST 11/26/2021 6:31 am COMPARISON: None. HISTORY: ORDERING SYSTEM PROVIDED HISTORY: Reason for Exam: Hypoxia FINDINGS: Cardiomediastinal silhouette is mildly enlarged. Hazy airspace disease at the lung bases. Mild central vascular prominence is suspected. Left subclavian central venous catheter tube tip terminates in the SVC. Sternotomy wires are present in the chest wall. No pneumothorax. Possible tiny left effusion. IMPRESSION: Findings suggestive of congestion/edema versus a developing infectious or inflammatory process. Interpreted by: Nunu Forrest MD Preliminary Report By: Nunu Forrest MD Electronically signed By Nunu Forrest MD Dictated Date: 11/26/2021 6:33:58 AM Prelim Date: 11/26/2021 6:50:40 AM Sign Date: 11/26/2021 6:50:40 AM Ordering Provider: NAT DUNN [facility] ([place]) .Auto Diffon 11-25-2021 Basophil, Absolute 0.0 10 3/mcL Normal 0.0-0.3 [facility] ([place] Comment on above: Performed By: #### H CTRP, HGBRP, GLURP, CLRP, NARP, BGRP, KRP, CARP #### [address] [address] Basophils/100 WBC (Bld) 0.2 % Normal 0.0-2.5 [facility] ([place] Comment on above: Performed By: #### H CTRP, HGBRP, GLURP, CLRP, NARP, BGRP, KRP, CARP #### [address] [address] Eosinophil, Absolute 0.0 10 3/mcL Normal 0.0-0.7 [facility] ([place] Comment on above: Performed By: #### H CTRP, HGBRP, GLURP, CLRP, NARP, BGRP, KRP, CARP #### [address] [address] Eosinophils/100 WBC (Bld) 0.2 % Normal 0.0-6.0 [facility] ([place] Comment on above: Performed By: #### H CTRP, HGBRP, GLURP, CLRP, NARP, BGRP, KRP, CARP #### [address] [address] Lymphocyte, Absolute 2.0 10 3/mcL Normal 0.9-4.3 [facility] ([place] Comment on above: Performed By: #### H CTRP, HGBRP, GLURP, CLRP, NARP, BGRP, KRP, CARP #### [address] [address] Lymphocytes/100 WBC (Bld) 10.7 % Low 20.0-40.0 [facility] ([place] Comment on above: Performed By: #### H CTRP, HGBRP, GLURP, CLRP, NARP, BGRP, KRP, CARP #### [address] [address] Monocyte, Absolute 1.7 10 3/mcL High 0.1-1.4 [facility] ([place] Comment on above: Performed By: #### H CTRP, HGBRP, GLURP, CLRP, NARP, BGRP, KRP, CARP #### [address] [address] Monocytes/100 WBC (Bld) 9.3 % Normal 2.0-13.0 [facility] ([place] Comment on above: Performed By: #### H CTRP, HGBRP, GLURP, CLRP, NARP, BGRP, KRP, CARP #### [address] [address] Neutrophils/100 WBC (Bld) 79.6 % High 50.0-75.0 [facility] ([place] Comment on above: Performed By: #### H CTRP, HGBRP, GLURP, CLRP, NARP, BGRP, KRP, CARP #### [address] [address] .GFRon 11-25-2021 GFR Non- >60 Normal [facility] ([place] Comment on above: Result Comment: GFR Population mean for , Non- Americans Ages 20-29 = 116 mL/min/1.73 sq.m. Ages 30-39 = 107 mL/min/1.73 sq.m. Ages 40-49 = 99 mL/min/1.73 sq.m. Ages 50-59 = 93 mL/min/1.73 sq.m. Ages 60-69 = 85 mL/min/1.73 sq.m. Ages 70+ = 75 mL/min/1.73 sq.m. Chronic Kidney Disease: Less than 60 mL/min/1.73 square meters End Stage Renal Disease: Less than 15 mL/min/1.73 square meters Performed By: #### H CTRP, HGBRP, GLURP, CLRP, NARP, BGRP, KRP, CARP #### [address] [address] GFR >60 Normal [facility] ([place] Comment on above: Result Comment: GFR Population mean for , Non- Americans Ages 20-29 = 116 mL/min/1.73 sq.m. Ages 30-39 = 107 mL/min/1.73 sq.m. Ages 40-49 = 99 mL/min/1.73 sq.m. Ages 50-59 = 93 mL/min/1.73 sq.m. Ages 60-69 = 85 mL/min/1.73 sq.m. Ages 70+ = 75 mL/min/1.73 sq.m. Chronic Kidney Disease: Less than 60 mL/min/1.73 square meters End Stage Renal Disease: Less than 15 mL/min/1.73 square meters Performed By: #### H CTRP, HGBRP, GLURP, CLRP, NARP, BGRP, KRP, CARP #### [address] [address] .NEUABSon 11-25-2021 Neutrophil, Absolute 14.6 10 3/mcL High 2.3-8.1 [facility] ([place] Comment on above: Performed By: #### H CTRP, HGBRP, GLURP, CLRP, NARP, BGRP, KRP, CARP #### [place] [address] BGon 11-25-2021 Barometric Pressure 712 mmHg Normal [facility] ([place] Comment on above: Performed By: #### H CTRP, HGBRP, GLURP, CLRP, NARP, BGRP, KRP, CARP #### [place] [address] Base excess Calc (Bld) [Moles/Vol] 2.5 mmol/L Normal [facility] ([place] Comment on above: Performed By: #### H CTRP, HGBRP, GLURP, CLRP, NARP, BGRP, KRP, CARP #### [address] [address] CO2 [Moles/Vol] 28.1 mmol/L Normal 22.0-30.0 [facility] ([place] Comment on above: Performed By: #### H CTRP, HGBRP, GLURP, CLRP, NARP, BGRP, KRP, CARP #### [place] [id number] HCO3 (Bld) [Moles/Vol] 26.8 mmol/L Normal 21.0-29.0 [facility] ([place] Comment on above: Performed By: #### H CTRP, HGBRP, GLURP, CLRP, NARP, BGRP, KRP, CARP #### [place] [address] Oxygen (Bld) [Partial pressure] 72.8 mm[Hg] Low 74.0-108.0 [facility] ([place] Comment on above: Performed By: #### H CTRP, HGBRP, GLURP, CLRP, NARP, BGRP, KRP, CARP #### [address] [address] Oxygen saturation in Blood 94.9 % Normal 92.0-96.0 [facility] ([place] Comment on above: Performed By: #### H CTRP, HGBRP, GLURP, CLRP, NARP, BGRP, KRP, CARP #### [address] [address] pCO2 40.3 mmHg Normal 32.0-46.0 [facility] ([place] Comment on above: Performed By: #### H CTRP, HGBRP, GLURP, CLRP, NARP, BGRP, KRP, CARP #### [address] [address] pH (Bld) 7.441 [pH] Normal 7.380-7.460 [facility] ([place] Comment on above: Performed By: #### H CTRP, HGBRP, GLURP, CLRP, NARP, BGRP, KRP, CARP #### [address] [address] BMPon 11-25-2021 BUN/Creatinine Ratio 19.7 ratio Normal 10.0-22.0 [facility] ([place] Comment on above: Performed By: #### H CTRP, HGBRP, GLURP, CLRP, NARP, BGRP, KRP, CARP #### [place] [id number] Calcium [Mass/Vol] 7.9 mg/dL Low 8.7-10.4 [facility] ([place] Comment on above: Performed By: #### H CTRP, HGBRP, GLURP, CLRP, NARP, BGRP, KRP, CARP #### [place] [id number] Chloride [Moles/Vol] 101 mmol/L Normal 98-110 [facility] ([place] Comment on above: Performed By: #### H CTRP, HGBRP, GLURP, CLRP, NARP, BGRP, KRP, CARP #### [address] [address] CO2 [Moles/Vol] 26 mmol/L Normal 22-32 [facility] ([place] Comment on above: Performed By: #### H CTRP, HGBRP, GLURP, CLRP, NARP, BGRP, KRP, CARP #### [address] [address] Creatinine [Mass/Vol] 0.66 mg/dL Normal 0.50-1.20 [facility] ([place] Comment on above: Performed By: #### H CTRP, HGBRP, GLURP, CLRP, NARP, BGRP, KRP, CARP #### [address] [address] Electrolyte Balance 10.0 mEq/L Normal 4.0-15.0 [facility] ([place] Comment on above: Performed By: #### H CTRP, HGBRP, GLURP, CLRP, NARP, BGRP, KRP, CARP #### [address] [address] Glucose [Mass/Vol] 89 mg/dL Normal 82-115 [facility] ([place] Comment on above: Performed By: #### H CTRP, HGBRP, GLURP, CLRP, NARP, BGRP, KRP, CARP #### [address] [address] Potassium [Moles/Vol] 3.8 mmol/L Normal 3.5-5.0 [facility] ([place] Comment on above: Performed By: #### H CTRP, HGBRP, GLURP, CLRP, NARP, BGRP, KRP, CARP #### [address] [address] Sodium [Moles/Vol] 137 mmol/L Normal 136-145 [facility] ([place] Comment on above: Performed By: #### H CTRP, HGBRP, GLURP, CLRP, NARP, BGRP, KRP, CARP #### [address] [address] Urea nitrogen [Mass/Vol] 13.0 mg/dL Normal 8.0-22.0 [facility] ([place] Comment on above: Performed By: #### H CTRP, HGBRP, GLURP, CLRP, NARP, BGRP, KRP, CARP #### [place] [address] CBCon 11-25-2021 Erythrocyte distribution width (RBC) [Ratio] 13.8 % Normal 11.5-15.5 [facility] ([place] Comment on above: Performed By: #### H CTRP, HGBRP, GLURP, CLRP, NARP, BGRP, KRP, CARP #### [place] [address] Hematocrit (Bld) [Volume fraction] 31.4 % Low 34.0-46.0 [facility] ([place] Comment on above: Performed By: #### H CTRP, HGBRP, GLURP, CLRP, NARP, BGRP, KRP, CARP #### [place] [address] Hgb 10.3 G/dL Low 12.0-16.0 [facility] ([place] Comment on above: Performed By: #### H CTRP, HGBRP, GLURP, CLRP, NARP, BGRP, KRP, CARP #### [place] [address] MCH (RBC) [Entitic mass] 29.5 pg Normal 27.0-33.0 [facility] [place] Comment on above: Performed By: #### H CTRP, HGBRP, GLURP, CLRP, NARP, BGRP, KRP, CARP #### [place] [address] MCHC 32.8 G/dL Normal 32.0-36.0 [facility] ([place] Comment on above: Performed By: #### H CTRP, HGBRP, GLURP, CLRP, NARP, BGRP, KRP, CARP #### [place] [address] MCV (RBC) [Entitic vol] 89.8 fL Normal 80.0-99.0 [facility] [place] Comment on above: Performed By: #### H CTRP, HGBRP, GLURP, CLRP, NARP, BGRP, KRP, CARP #### [place] [address] Platelet 205 10 3/mcL Normal 150-450 [facility] ([place] Comment on above: Performed By: #### H CTRP, HGBRP, GLURP, CLRP, NARP, BGRP, KRP, CARP #### [place] [address] Platelet mean volume (Bld) [Entitic vol] 8.9 fL Normal 6.6-10.5 [facility] ([place] Comment on above: Performed By: #### H CTRP, HGBRP, GLURP, CLRP, NARP, BGRP, KRP, CARP #### [place] [address] RBC 3.49 10 6/mcL Low 4.10-5.30 [facility] ([place] Comment on above: Performed By: #### H CTRP, HGBRP, GLURP, CLRP, NARP, BGRP, KRP, CARP #### [place] [address] WBC 18.4 10 3/mcL High 4.5-10.8 [facility] ([place] Comment on above: Performed By: #### H CTRP, HGBRP, GLURP, CLRP, NARP, BGRP, KRP, CARP #### [place] [address] Jayden 11-25-2021 Potassium [Moles/Vol] 4.3 mmol/L Normal 3.5-5.0 [facility] ([place] Comment on above: Performed By: #### K #### [place] [address] LABORATORYOrdered By: Alma Rosa Cabrera on 11-25-2021 Cholesterol [Mass/Vol] 85 mg/dL Invalid Interpretation Code 50 - 199 mg/dL AH ADM SS Cholesterol in HDL [Mass/Vol] 34 mg/dL Invalid Interpretation Code 40 - 59 mg/dL AH ADM SS Cholesterol in LDL [Mass/Vol] 37 mg/dL Invalid Interpretation Code 0 - 129 mg/dL AH ADM SS Triglyceride [Mass/Vol] 72 mg/dL Invalid Interpretation Code 3 - 149 mg/dL AH ADM SS LIPIDon 11-25-2021 Cholesterol [Mass/Vol] 85 mg/dL Normal 50-199 [facility] ([place] Comment on above: Result Comment: Chol esterol Reference Interval: Less than 200 Desirable 200-239 Borderline high risk 240 and above High risk Performed By: #### H CTRP, HGBRP, GLURP, CLRP, NARP, BGRP, KRP, CARP #### [address] [address] Cholesterol in HDL [Mass/Vol] 34 mg/dL Low 40-59 [facility] ([place] Comment on above: Performed By: #### H CTRP, HGBRP, GLURP, CLRP, NARP, BGRP, KRP, CARP #### [address] [address] Cholesterol in LDL [Mass/Vol] 37 mg/dL Normal 0-129 [facility] ([place] Comment on above: Performed By: #### H CTRP, HGBRP, GLURP, CLRP, NARP, BGRP, KRP, CARP #### [address] [address] Triglyceride [Mass/Vol] 72 mg/dL Normal 3-149 [facility] [place] Comment on above: Performed By: #### H CTRP, HGBRP, GLURP, CLRP, NARP, BGRP, KRP, CARP #### [address] [address] XR CHEST 1 VIEWon 11-25-2021 XR CHEST 1 VIEW ORIGINAL EXAMINATION: ONE XRAY VIEW OF THE CHEST11/25/2021 6:04 am COMPARISON: 11/24/2021 HISTORY: ORDERING SYSTEM PROVIDED HISTORY: Reason for Exam: decreased breath sounds FINDINGS: There are median sternotomy wires, surgical padmini, left-sided subclavian venous catheter, mediastinal drain, and a left-sided chest tube. Low lung volumes. Mild cardiomegaly is grossly unchanged. There are persistently prominent interstitial markings bilaterally along with patchy bibasilar opacities. There is no visible pneumothorax. No significant pleural fluid. No acute bony findings. IMPRESSION: Persistent diffuse interstitial prominence with bibasilar patchy opacities, most likely pulmonary edema (versus less likely infection/inflammation ). Grossly unchanged cardiomegaly. Low lung volumes. I have personally reviewed the images of this examination and agree with the resident's findings and interpretation. Interpreted by: Nunu Forrest MD Preliminary Report By: Chico Schaeffer Electronically signed By Nunu Forrest MD Dictated Date: 11/25/2021 6:05:54 AM Prelim Date: 11/25/2021 6:09:46 AM Sign Date: 11/25/2021 6:55:32 AM Ordering Provider: NAT Mercado [facility] ([place] XR CHEST 1 VIEW ORIGINAL EXAMINATION: ONE XRAY VIEW OF THE CHEST11/24/2021 9:56 pm COMPARISON: Chest x-ray November 23, 2021 HISTORY: ORDERING SYSTEM PROVIDED HISTORY: Reason for Exam: abnormal breath sounds FINDINGS: Median sternotomy wires with midline surgical padmini. Left chest tube again seen. Mediastinal drain difficult to see given multiple overlying wires. Interval removal of endotracheal and enteric tube. Left subclavian central venous catheter thought to be terminating within the mid to distal SVC. The cardiomediastinal silhouette is mildly enlarged and more pronounced on this exam likely secondary to change in position and poor inspiratory effort. Low lung volumes. Prominent interstitial opacities as well as patchy bibasilar airspace opacities. No pneumothorax or significant pleural effusion. No acute osseous abnormality. IMPRESSION: Mild cardiomegaly, which appears more exaggerated on this exam likely secondary to poor inspiratory effort. Prominent interstitial markings bilaterally with patchy bibasilar airspace opacities favoring congestion/edema with developing infectious or inflammatory process not excluded. I have personally reviewed the images of this examination and agree with the resident's finding and interpretation. Interpreted by: Bear Salcedo MD Preliminary Report By: Akua Bejarano Electronically signed By Bear Salcedo MD Dictated Date: 11/24/2021 10:02:41 PM Prelim Date: 11/24/2021 10:09:45 PM Sign Date: 11/24/2021 10:21:41 PM Ordering Provider: POLLY Mercado [facility] ([place]) .Auto Diffon 11-24-2021 Basophil, Absolute 0.0 10 3/mcL Normal 0.0-0.3 [facility] ([place] Comment on above: Performed By: #### H CTRP, HGBRP, GLURP, CLRP, NARP, BGRP, KRP, CARP #### [address] [address] Basophils/100 WBC (Bld) 0.2 % Normal 0.0-2.5 [facility] ([place] Comment on above: Performed By: #### H CTRP, HGBRP, GLURP, CLRP, NARP, BGRP, KRP, CARP #### [address] [address] Eosinophil, Absolute 0.0 10 3/mcL Normal 0.0-0.7 [facility] ([place] Comment on above: Performed By: #### H CTRP, HGBRP, GLURP, CLRP, NARP, BGRP, KRP, CARP #### [address] [address] Eosinophils/100 WBC (Bld) 0.0 % Normal 0.0-6.0 [facility] ([place] Comment on above: Performed By: #### H CTRP, HGBRP, GLURP, CLRP, NARP, BGRP, KRP, CARP #### [address] [address] Lymphocyte, Absolute 1.3 10 3/mcL Normal 0.9-4.3 [facility] ([place] Comment on above: Performed By: #### H CTRP, HGBRP, GLURP, CLRP, NARP, BGRP, KRP, CARP #### [address] [address] Lymphocytes/100 WBC (Bld) 8.8 % Low 20.0-40.0 [facility] ([place] Comment on above: Performed By: #### H CTRP, HGBRP, GLURP, CLRP, NARP, BGRP, KRP, CARP #### [address] [address] Monocyte, Absolute 1.0 10 3/mcL Normal 0.1-1.4 [facility] ([place] Comment on above: Performed By: #### H CTRP, HGBRP, GLURP, CLRP, NARP, BGRP, KRP, CARP #### [address] [address] Monocytes/100 WBC (Bld) 6.9 % Normal 2.0-13.0 [facility] ([place] Comment on above: Performed By: #### H CTRP, HGBRP, GLURP, CLRP, NARP, BGRP, KRP, CARP #### [address] [address] Neutrophils/100 WBC (Bld) 84.1 % High 50.0-75.0 [facility] ([place] Comment on above: Performed By: #### H CTRP, HGBRP, GLURP, CLRP, NARP, BGRP, KRP, CARP #### [address] [address] .GFRon 11-24-2021 GFR Non- >60 Normal [facility] ([place] Comment on above: Result Comment: GFR Population mean for , Non- Americans Ages 20-29 = 116 mL/min/1.73 sq.m. Ages 30-39 = 107 mL/min/1.73 sq.m. Ages 40-49 = 99 mL/min/1.73 sq.m. Ages 50-59 = 93 mL/min/1.73 sq.m. Ages 60-69 = 85 mL/min/1.73 sq.m. Ages 70+ = 75 mL/min/1.73 sq.m. Chronic Kidney Disease: Less than 60 mL/min/1.73 square meters End Stage Renal Disease: Less than 15 mL/min/1.73 square meters Performed By: #### H CTRP, HGBRP, GLURP, CLRP, NARP, BGRP, KRP, CARP #### [address] [address] GFR >60 Normal [facility] ([place] Comment on above: Result Comment: GFR Population mean for , Non- Americans Ages 20-29 = 116 mL/min/1.73 sq.m. Ages 30-39 = 107 mL/min/1.73 sq.m. Ages 40-49 = 99 mL/min/1.73 sq.m. Ages 50-59 = 93 mL/min/1.73 sq.m. Ages 60-69 = 85 mL/min/1.73 sq.m. Ages 70+ = 75 mL/min/1.73 sq.m. Chronic Kidney Disease: Less than 60 mL/min/1.73 square meters End Stage Renal Disease: Less than 15 mL/min/1.73 square meters Performed By: #### H CTRP, HGBRP, GLURP, CLRP, NARP, BGRP, KRP, CARP #### [address] [address] .NEUABSon 11-24-2021 Neutrophil, Absolute 12.4 10 3/mcL High 2.3-8.1 [facility] [place] Comment on above: Performed By: #### H CTRP, HGBRP, GLURP, CLRP, NARP, BGRP, KRP, CARP #### [address] [address] BGon 11-24-2021 Barometric Pressure 707 mmHg Normal [facility] ([place] Comment on above: Performed By: #### K #### [address] [address] Base excess Calc (Bld) [Moles/Vol] 1.1 mmol/L Normal [facility] ([place] Comment on above: Performed By: #### K #### [address] [address] CO2 [Moles/Vol] 27.3 mmol/L Normal 22.0-30.0 [facility] ([place] Comment on above: Performed By: #### K #### [address] [address] HCO3 (Bld) [Moles/Vol] 26.0 mmol/L Normal 21.0-29.0 [facility] [place] Comment on above: Performed By: #### K #### [address] [address] Oxygen (Bld) [Partial pressure] 74.2 mm[Hg] Normal 74.0-108.0 [facility] ([place] Comment on above: Performed By: #### K #### [address] [address] Oxygen saturation in Blood 95.6 % Normal 92.0-96.0 [facility] ([place] Comment on above: Performed By: #### K #### [address] [address] pCO2 42.2 mmHg Normal 32.0-46.0 [facility] ([place] Comment on above: Performed By: #### K #### [address] [address] pH (Bld) 7.407 [pH] Normal 7.380-7.460 [facility] ([place] Comment on above: Performed By: #### K #### [address] [address] Barometric Pressure 706 mmHg Normal [facility] ([place] Comment on above: Performed By: #### H CTRP, HGBRP, GLURP, CLRP, NARP, BGRP, KRP, CARP #### [address] [address] Base excess Calc (Bld) [Moles/Vol] -2.2000 mmol/L Normal [facility] ([place] Comment on above: Performed By: #### H CTRP, HGBRP, GLURP, CLRP, NARP, BGRP, KRP, CARP #### [address] [address] CO2 [Moles/Vol] 26.0 mmol/L Normal 22.0-30.0 [facility] ([place] Comment on above: Performed By: #### H CTRP, HGBRP, GLURP, CLRP, NARP, BGRP, KRP, CARP #### [address] [address] HCO3 (Bld) [Moles/Vol] 24.4 mmol/L Normal 21.0-29.0 [facility] ([place] Comment on above: Performed By: #### H CTRP, HGBRP, GLURP, CLRP, NARP, BGRP, KRP, CARP #### [address] [address] Oxygen (Bld) [Partial pressure] 86.6 mm[Hg] Normal 74.0-108.0 [facility] ([place] Comment on above: Performed By: #### H CTRP, HGBRP, GLURP, CLRP, NARP, BGRP, KRP, CARP #### [address] [address] Oxygen saturation in Blood 96.2 % High 92.0-96.0 [facility] ([place] Comment on above: Performed By: #### H CTRP, HGBRP, GLURP, CLRP, NARP, BGRP, KRP, CARP #### [address] [address] pCO2 50.9 mmHg High 32.0-46.0 [facility] ([place] Comment on above: Performed By: #### H CTRP, HGBRP, GLURP, CLRP, NARP, BGRP, KRP, CARP #### [address] [address] pH (Bld) 7.299 [pH] Low 7.380-7.460 [facility] ([place] Comment on above: Performed By: #### H CTRP, HGBRP, GLURP, CLRP, NARP, BGRP, KRP, CARP #### [address] [address] Barometric Pressure 709 mmHg Normal [facility] ([place] Comment on above: Performed By: #### H CTRP, HGBRP, GLURP, CLRP, NARP, BGRP, KRP, CARP #### [address] [address] Base excess Calc (Bld) [Moles/Vol] -0.8000 mmol/L Normal [facility] ([place] Comment on above: Performed By: #### H CTRP, HGBRP, GLURP, CLRP, NARP, BGRP, KRP, CARP #### [address] [address] CO2 [Moles/Vol] 27.3 mmol/L Normal 22.0-30.0 [facility] ([place] Comment on above: Performed By: #### H CTRP, HGBRP, GLURP, CLRP, NARP, BGRP, KRP, CARP #### [address] [address] HCO3 (Bld) [Moles/Vol] 25.7 mmol/L Normal 21.0-29.0 [facility] ([place] Comment on above: Performed By: #### H CTRP, HGBRP, GLURP, CLRP, NARP, BGRP, KRP, CARP #### [address] [address] Oxygen (Bld) [Partial pressure] 130.7 mm[Hg] High 74.0-108.0 [facility] ([place] Comment on above: Performed By: #### H CTRP, HGBRP, GLURP, CLRP, NARP, BGRP, KRP, CARP #### [address] [address] Oxygen saturation in Blood 98.7 % High 92.0-96.0 [facility] ([place] Comment on above: Performed By: #### H CTRP, HGBRP, GLURP, CLRP, NARP, BGRP, KRP, CARP #### [address] [address] pCO2 50.9 mmHg High 32.0-46.0 [facility] ([place] Comment on above: Performed By: #### H CTRP, HGBRP, GLURP, CLRP, NARP, BGRP, KRP, CARP #### [address] [address] pH (Bld) 7.321 [pH] Low 7.380-7.460 [facility] ([place] Comment on above: Performed By: #### H CTRP, HGBRP, GLURP, CLRP, NARP, BGRP, KRP, CARP #### [address] [address] Barometric Pressure 735 mmHg Normal [facility] ([place] Comment on above: Performed By: #### H CTRP, HGBRP, GLURP, CLRP, NARP, BGRP, KRP, CARP #### [address] [address] Base excess Calc (Bld) [Moles/Vol] -2.0000 mmol/L Normal [facility] ([place] Comment on above: Performed By: #### H CTRP, HGBRP, GLURP, CLRP, NARP, BGRP, KRP, CARP #### [address] [address] CO2 [Moles/Vol] 27.5 mmol/L Normal 22.0-30.0 [facility] ([place] Comment on above: Performed By: #### H CTRP, HGBRP, GLURP, CLRP, NARP, BGRP, KRP, CARP #### [address] [address] HCO3 (Bld) [Moles/Vol] 25.7 mmol/L Normal 21.0-29.0 [facility] ([place] Comment on above: Performed By: #### H CTRP, HGBRP, GLURP, CLRP, NARP, BGRP, KRP, CARP #### [address] [address] Oxygen (Bld) [Partial pressure] 101.8 mm[Hg] Normal 74.0-108.0 [facility] ([place] Comment on above: Performed By: #### H CTRP, HGBRP, GLURP, CLRP, NARP, BGRP, KRP, CARP #### [address] [address] Oxygen saturation in Blood 96.9 % High 92.0-96.0 [facility] ([place] Comment on above: Performed By: #### H CTRP, HGBRP, GLURP, CLRP, NARP, BGRP, KRP, CARP #### [address] [address] pCO2 55.8 mmHg High 32.0-46.0 [facility] ([place] Comment on above: Performed By: #### H CTRP, HGBRP, GLURP, CLRP, NARP, BGRP, KRP, CARP #### [address] [address] pH (Bld) 7.282 [pH] Low 7.380-7.460 [facility] ([place] Comment on above: Performed By: #### H CTRP, HGBRP, GLURP, CLRP, NARP, BGRP, KRP, CARP #### [address] [address] Barometric Pressure 705 mmHg Normal [facility] ([place] Comment on above: Performed By: #### H CTRP, HGBRP, GLURP, CLRP, NARP, BGRP, KRP, CARP #### [address] [address] Base excess Calc (Bld) [Moles/Vol] -1.8000 mmol/L Normal [facility] ([place] Comment on above: Performed By: #### H CTRP, HGBRP, GLURP, CLRP, NARP, BGRP, KRP, CARP #### [address] [address] CO2 [Moles/Vol] 27.9 mmol/L Normal 22.0-30.0 [facility] ([place] Comment on above: Performed By: #### H CTRP, HGBRP, GLURP, CLRP, NARP, BGRP, KRP, CARP #### [address] [address] HCO3 (Bld) [Moles/Vol] 26.1 mmol/L Normal 21.0-29.0 [facility] ([place] Comment on above: Performed By: #### H CTRP, HGBRP, GLURP, CLRP, NARP, BGRP, KRP, CARP #### [address] [address] Oxygen (Bld) [Partial pressure] 113.5 mm[Hg] High 74.0-108.0 [facility] ([place] Comment on above: Performed By: #### H CTRP, HGBRP, GLURP, CLRP, NARP, BGRP, KRP, CARP #### [place] [id number] Oxygen saturation in Blood 97.9 % High 92.0-96.0 [facility] ([place] Comment on above: Performed By: #### H CTRP, HGBRP, GLURP, CLRP, NARP, BGRP, KRP, CARP #### [place] [id number] pCO2 60.4 mmHg High 32.0-46.0 [facility] ([place] Comment on above: Performed By: #### H CTRP, HGBRP, GLURP, CLRP, NARP, BGRP, KRP, CARP #### [place] [phone] pH (Bld) 7.253 [pH] Low 7.380-7.460 [facility] ([place] Comment on above: Performed By: #### H CTRP, HGBRP, GLURP, CLRP, NARP, BGRP, KRP, CARP #### [address] [address] CBCon 11-24-2021 Erythrocyte distribution width (RBC) [Ratio] 14.1 % Normal 11.5-15.5 [facility] ([place] Comment on above: Performed By: #### H CTRP, HGBRP, GLURP, CLRP, NARP, BGRP, KRP, CARP #### [place] [phone] Hematocrit (Bld) [Volume fraction] 29.2 % Low 34.0-46.0 [facility] ([place] Comment on above: Performed By: #### H CTRP, HGBRP, GLURP, CLRP, NARP, BGRP, KRP, CARP #### [address] [address] Hgb 9.6 G/dL Low 12.0-16.0 [facility] ([place] Comment on above: Performed By: #### H CTRP, HGBRP, GLURP, CLRP, NARP, BGRP, KRP, CARP #### [place] [address] MCH (RBC) [Entitic mass] 29.6 pg Normal 27.0-33.0 [facility] ([place] Comment on above: Performed By: #### H CTRP, HGBRP, GLURP, CLRP, NARP, BGRP, KRP, CARP #### [place] [address] MCHC 32.7 G/dL Normal 32.0-36.0 [facility] ([place] Comment on above: Performed By: #### H CTRP, HGBRP, GLURP, CLRP, NARP, BGRP, KRP, CARP #### [place] [address] MCV (RBC) [Entitic vol] 90.4 fL Normal 80.0-99.0 [facility] ([place] Comment on above: Performed By: #### H CTRP, HGBRP, GLURP, CLRP, NARP, BGRP, KRP, CARP #### [place] [address] Platelet 186 10 3/mcL Normal 150-450 [facility] ([place] Comment on above: Performed By: #### H CTRP, HGBRP, GLURP, CLRP, NARP, BGRP, KRP, CARP #### [place] [address] Platelet mean volume (Bld) [Entitic vol] 8.5 fL Normal 6.6-10.5 [facility] ([place] Comment on above: Performed By: #### H CTRP, HGBRP, GLURP, CLRP, NARP, BGRP, KRP, CARP #### [place] [address] RBC 3.23 10 6/mcL Low 4.10-5.30 [facility] ([place] Comment on above: Performed By: #### H CTRP, HGBRP, GLURP, CLRP, NARP, BGRP, KRP, CARP #### [address] [address] WBC 14.8 10 3/mcL High 4.5-10.8 [facility] ([place] Comment on above: Performed By: #### H CTRP, HGBRP, GLURP, CLRP, NARP, BGRP, KRP, CARP #### [address] [address] CMPon 11-24-2021 Albumin Level 3.7 G/dL Normal 3.2-4.8 [facility] ([place] Comment on above: Performed By: #### H CTRP, HGBRP, GLURP, CLRP, NARP, BGRP, KRP, CARP #### [address] [address] Albumin/Globulin [Mass ratio] 1.9 {ratio} High 0.9-1.6 [facility] ([place] Comment on above: Performed By: #### H CTRP, HGBRP, GLURP, CLRP, NARP, BGRP, KRP, CARP #### [address] [address] ALP [Catalytic activity/Vol] 41 U/L Normal 38-126 [facility] ([place] Comment on above: Performed By: #### H CTRP, HGBRP, GLURP, CLRP, NARP, BGRP, KRP, CARP #### [address] [address] ALT [Catalytic activity/Vol] 33 U/L Normal 10-49 [facility] ([place] Comment on above: Performed By: #### H CTRP, HGBRP, GLURP, CLRP, NARP, BGRP, KRP, CARP #### [address] [address] AST [Catalytic activity/Vol] 49 U/L High 8-34 [facility] ([place] Comment on above: Performed By: #### H CTRP, HGBRP, GLURP, CLRP, NARP, BGRP, KRP, CARP #### [address] [address] Bili Total 0.80 mg/dL Normal 0.20-1.20 [facility] ([place] Comment on above: Result Comment: Use of this assay is not recommended for patients undergoing treatment with eltrombopag due to the potential for falsely elevated results. Performed By: #### H CTRP, HGBRP, GLURP, CLRP, NARP, BGRP, KRP, CARP #### [address] [address] BUN/Creatinine Ratio 22.4 ratio High 10.0-22.0 [facility] ([place] Comment on above: Performed By: #### H CTRP, HGBRP, GLURP, CLRP, NARP, BGRP, KRP, CARP #### [address] [address] Calcium [Mass/Vol] 7.5 mg/dL Low 8.7-10.4 [facility] ([place]) Comment on above: Performed By: #### H CTRP, HGBRP, GLURP, CLRP, NARP, BGRP, KRP, CARP #### [address] [address] Chloride [Moles/Vol] 106 mmol/L Normal 98-110 [facility] ([place] Comment on above: Performed By: #### H CTRP, HGBRP, GLURP, CLRP, NARP, BGRP, KRP, CARP #### [address] [address] CO2 [Moles/Vol] 26 mmol/L Normal 22-32 [facility] ([place] Comment on above: Performed By: #### H CTRP, HGBRP, GLURP, CLRP, NARP, BGRP, KRP, CARP #### [address] [address] Creatinine [Mass/Vol] 0.67 mg/dL Normal 0.50-1.20 [facility] ([place]) Comment on above: Performed By: #### H CTRP, HGBRP, GLURP, CLRP, NARP, BGRP, KRP, CARP #### [address] [address] Electrolyte Balance 5.0 mEq/L Normal 4.0-15.0 [facility] ([place] Comment on above: Performed By: #### H CTRP, HGBRP, GLURP, CLRP, NARP, BGRP, KRP, CARP #### [address] [address] Globulin 1.9 G/dL Normal 1.5-3.8 [facility] ([place] Comment on above: Performed By: #### H CTRP, HGBRP, GLURP, CLRP, NARP, BGRP, KRP, CARP #### [address] [address] Glucose [Mass/Vol] 141 mg/dL High 82-115 [facility] ([place]) Comment on above: Performed By: #### H CTRP, HGBRP, GLURP, CLRP, NARP, BGRP, KRP, CARP #### [address] [address] Potassium [Moles/Vol] 4.2 mmol/L Normal 3.5-5.0 [facility] ([place] Comment on above: Performed By: #### H CTRP, HGBRP, GLURP, CLRP, NARP, BGRP, KRP, CARP #### [address] [address] Sodium [Moles/Vol] 137 mmol/L Normal 136-145 [facility] ([place] Comment on above: Performed By: #### H CTRP, HGBRP, GLURP, CLRP, NARP, BGRP, KRP, CARP #### [address] [address] Total Protein 5.6 G/dL Low 5.7-8.2 [facility] ([place] Comment on above: Result Comment: No te - New Reference Range in effect 19 Performed By: #### H CTRP, HGBRP, GLURP, CLRP, NARP, BGRP, KRP, CARP #### [place] [address] Urea nitrogen [Mass/Vol] 15.0 mg/dL Normal 8.0-22.0 [facility] ([place] Comment on above: Performed By: #### H CTRP, HGBRP, GLURP, CLRP, NARP, BGRP, KRP, CARP #### [place] [address] [place]den 11-24-2021 Potassium [Moles/Vol] 4.0 mmol/L Normal 3.5-5.0 [facility] ([place] Comment on above: Performed By: #### H CTRP, HGBRP, GLURP, CLRP, NARP, BGRP, KRP, CARP #### [place] [address] Potassium [Moles/Vol] 4.7 mmol/L Normal 3.5-5.0 [facility] ([place] Comment on above: Performed By: #### H CTRP, HGBRP, GLURP, CLRP, NARP, BGRP, KRP, CARP #### [place] [address] LABORATORYOrdered By: Oswaldo Vásquez on 11-24-2021 Blood Glucose Interventions Administered agent to decrease blood sugar (11/24/21 11:28 AM) [facility] Work Phone: Blood Glucose Interventions Administered agent to decrease blood sugar (11/24/21 9:39 AM) [facility] Work Phone: Blood Glucose Interventions Administered agent to decrease blood sugar (11/24/21 7:27 AM) [facility] Work Phone: LABORATORYOrdered By: SYSTEM SYSTEM on 11-24-2021 Albumin BCP dye [Mass/Vol] 3.7 G/dL Invalid Interpretation Code 3.2 - 4.8 G/dL ADM SS Albumin/Globulin [Mass ratio] 1.9 {ratio} Invalid Interpretation Code 0.9 - 1.6 ratio AH ADM SS ALP [Catalytic activity/Vol] 41 U/L Invalid Interpretation Code 38 - 126 U/L ADM SS ALT No additional P-5'-P [Catalytic activity/Vol] 33 U/L Invalid Interpretation Code 10 - 49 U/L ADM SS AST [Catalytic activity/Vol] 49 U/L Invalid Interpretation Code 8 - 34 U/L ADM SS Bilirubin [Mass/Vol] 0.80 mg/dL Invalid Interpretation Code 0.20 - 1.20 mg/dL ADM SS Globulin 1.9 G/dL Invalid Interpretation Code 1.5 - 3.8 G/dL ADM SS Protein [Mass/Vol] 5.6 G/dL Invalid Interpretation Code 5.7 - 8.2 G/dL ADM SS .Auto Diffon 11-23-2021 Basophil, Absolute 0.1 10 3/mcL Normal 0.0-0.3 [facility] ([place] Comment on above: Performed By: #### H CTRP, HGBRP, GLURP, CLRP, NARP, BGRP, KRP, CARP #### [address] [address] Basophils/100 WBC (Bld) 0.3 % Normal 0.0-2.5 [facility] ([place] Comment on above: Performed By: #### H CTRP, HGBRP, GLURP, CLRP, NARP, BGRP, KRP, CARP #### [address] [address] Eosinophil, Absolute 0.3 10 3/mcL Normal 0.0-0.7 [facility] ([place]) Comment on above: Performed By: #### H CTRP, HGBRP, GLURP, CLRP, NARP, BGRP, KRP, CARP #### [address] [address] Eosinophils/100 WBC (Bld) 1.3 % Normal 0.0-6.0 [facility] ([place] Comment on above: Performed By: #### H CTRP, HGBRP, GLURP, CLRP, NARP, BGRP, KRP, CARP #### [address] [address] Lymphocyte, Absolute 2.6 10 3/mcL Normal 0.9-4.3 [facility] ([place] Comment on above: Performed By: #### H CTRP, HGBRP, GLURP, CLRP, NARP, BGRP, KRP, CARP #### [address] [address] Lymphocytes/100 WBC (Bld) 11.4 % Low 20.0-40.0 [facility] ([place] Comment on above: Performed By: #### H CTRP, HGBRP, GLURP, CLRP, NARP, BGRP, KRP, CARP #### [address] [address] Monocyte, Absolute 0.7 10 3/mcL Normal 0.1-1.4 [facility] ([place] Comment on above: Performed By: #### H CTRP, HGBRP, GLURP, CLRP, NARP, BGRP, KRP, CARP #### [address] [address] Monocytes/100 WBC (Bld) 3.1 % Normal 2.0-13.0 [facility] ([place] Comment on above: Performed By: #### H CTRP, HGBRP, GLURP, CLRP, NARP, BGRP, KRP, CARP #### [address] [address] Neutrophils/100 WBC (Bld) 83.9 % High 50.0-75.0 [facility] ([place] Comment on above: Performed By: #### H CTRP, HGBRP, GLURP, CLRP, NARP, BGRP, KRP, CARP #### [address] [address] .GFRon 11-23-2021 GFR Non- >60 Normal [facility] ([place] Comment on above: Result Comment: GFR Population mean for , Non- Americans Ages 20-29 = 116 mL/min/1.73 sq.m. Ages 30-39 = 107 mL/min/1.73 sq.m. Ages 40-49 = 99 mL/min/1.73 sq.m. Ages 50-59 = 93 mL/min/1.73 sq.m. Ages 60-69 = 85 mL/min/1.73 sq.m. Ages 70+ = 75 mL/min/1.73 sq.m. Chronic Kidney Disease: Less than 60 mL/min/1.73 square meters End Stage Renal Disease: Less than 15 mL/min/1.73 square meters Performed By: #### H CTRP, HGBRP, GLURP, CLRP, NARP, BGRP, KRP, CARP #### [address] [address] GFR >60 Normal [facility] ([place] Comment on above: Result Comment: GFR Population mean for , Non- Americans Ages 20-29 = 116 mL/min/1.73 sq.m. Ages 30-39 = 107 mL/min/1.73 sq.m. Ages 40-49 = 99 mL/min/1.73 sq.m. Ages 50-59 = 93 mL/min/1.73 sq.m. Ages 60-69 = 85 mL/min/1.73 sq.m. Ages 70+ = 75 mL/min/1.73 sq.m. Chronic Kidney Disease: Less than 60 mL/min/1.73 square meters End Stage Renal Disease: Less than 15 mL/min/1.73 square meters Performed By: #### H CTRP, HGBRP, GLURP, CLRP, NARP, BGRP, KRP, CARP #### [address] [address] .NEUABSon 11-23-2021 Neutrophil, Absolute 18.9 10 3/mcL High 2.3-8.1 [facility] ([place] Comment on above: Performed By: #### H CTRP, HGBRP, GLURP, CLRP, NARP, BGRP, KRP, CARP #### [address] [address] ABO/Rh (Gel)on 11-23-2021 ABO/Rh Interp Positive Invalid Interpretation Code [facility] ([place] Comment on above: Performed By: #### H CTRP, HGBRP, GLURP, CLRP, NARP, BGRP, KRP, CARP #### [address] [address] ABS (Gel)on 11-23-2021 ABSC Interp (Gel) Negative Normal [facility] ([place] Comment on above: Performed By: #### H CTRP, HGBRP, GLURP, CLRP, NARP, BGRP, KRP, CARP #### [address] [address] APTTon 11-23-2021 aPTT Coag (Bld) [Time] 32.5 s Normal 25.0-35.0 [facility] ([place]) Comment on above: Result Comment: For Heparin anticoagulation therapy, the recommended therapeutic range is: 54-77 seconds (APTT Correlation with Anti-Xa therapeutic range of 0.3-0.7 units/ml). PLEASE REFERENCE THE PHARMACY PROTOCOL FOR DOSING. Performed By: #### H CTRP, HGBRP, GLURP, CLRP, NARP, BGRP, KRP, CARP #### [place] [id number] Heparin dose (APTT) None Normal [facility] ([place] Comment on above: Performed By: #### H CTRP, HGBRP, GLURP, CLRP, NARP, BGRP, KRP, CARP #### [address] [address] aPTT Coag (Bld) [Time] 25.6 s Normal 25.0-35.0 [facility] ([place] Comment on above: Result Comment: For Heparin anticoagulation therapy, the recommended therapeutic range is: 54-77 seconds (APTT Correlation with Anti-Xa therapeutic range of 0.3-0.7 units/ml). PLEASE REFERENCE THE PHARMACY PROTOCOL FOR DOSING. Performed By: #### H CTRP, HGBRP, GLURP, CLRP, NARP, BGRP, KRP, CARP #### [address] [address] Heparin dose (APTT) Unknown Normal [facility] ([place] Comment on above: Performed By: #### H CTRP, HGBRP, GLURP, CLRP, NARP, BGRP, KRP, CARP #### [address] [address] BGon 11-23-2021 Barometric Pressure 735 mmHg Normal [facility] ([place] Comment on above: Performed By: #### K #### [address] [address] Base excess Calc (Bld) [Moles/Vol] -1.8000 mmol/L Normal [facility] ([place] Comment on above: Performed By: #### K #### [address] [address] CO2 [Moles/Vol] 28.0 mmol/L Normal 22.0-30.0 [facility] ([place] Comment on above: Performed By: #### K #### [place] [id number] HCO3 (Bld) [Moles/Vol] 26.2 mmol/L Normal 21.0-29.0 [facility] ([place] Comment on above: Performed By: #### K #### [place] [id number] Oxygen (Bld) [Partial pressure] 108.5 mm[Hg] High 74.0-108.0 [facility] ([place] Comment on above: Performed By: #### K #### [place] [id number] Oxygen saturation in Blood 97.3 % High 92.0-96.0 [facility] ([place] Comment on above: Performed By: #### K #### [address] [address] pCO2 57.8 mmHg High 32.0-46.0 [facility] ([place] Comment on above: Performed By: #### K #### [address] [address] pH (Bld) 7.274 [pH] Low 7.380-7.460 [facility] ([place] Comment on above: Performed By: #### K #### [place] [id number] Barometric Pressure 708 mmHg Normal [facility] ([place] Comment on above: Performed By: #### H CTRP, HGBRP, GLURP, CLRP, NARP, BGRP, KRP, CARP #### [address] [address] Base excess Calc (Bld) [Moles/Vol] -2.2000 mmol/L Normal [facility] ([place] Comment on above: Performed By: #### H CTRP, HGBRP, GLURP, CLRP, NARP, BGRP, KRP, CARP #### [address] [address] CO2 [Moles/Vol] 27.8 mmol/L Normal 22.0-30.0 [facility] ([place] Comment on above: Performed By: #### H CTRP, HGBRP, GLURP, CLRP, NARP, BGRP, KRP, CARP #### [place] [phone] HCO3 (Bld) [Moles/Vol] 25.9 mmol/L Normal 21.0-29.0 [facility] ([place] Comment on above: Performed By: #### H CTRP, HGBRP, GLURP, CLRP, NARP, BGRP, KRP, CARP #### [address] [address] Oxygen (Bld) [Partial pressure] 97.0 mm[Hg] Normal 74.0-108.0 [facility] ([place] Comment on above: Performed By: #### H CTRP, HGBRP, GLURP, CLRP, NARP, BGRP, KRP, CARP #### [address] [address] Oxygen saturation in Blood 96.1 % High 92.0-96.0 [facility] ([place]) Comment on above: Performed By: #### H CTRP, HGBRP, GLURP, CLRP, NARP, BGRP, KRP, CARP #### [address] [address] pCO2 61.5 mmHg High 32.0-46.0 [facility] ([place]) Comment on above: Performed By: #### H CTRP, HGBRP, GLURP, CLRP, NARP, BGRP, KRP, CARP #### [address] [address] pH (Bld) 7.242 [pH] Low 7.380-7.460 [facility] ([place] Comment on above: Performed By: #### H CTRP, HGBRP, GLURP, CLRP, NARP, BGRP, KRP, CARP #### [address] [address] Barometric Pressure 708 mmHg Normal [facility] ([place] Comment on above: Order Comment: CPAP Performed By: #### H CTRP, HGBRP, GLURP, CLRP, NARP, BGRP, KRP, CARP #### [address] [address] Base excess Calc (Bld) [Moles/Vol] -1.1000 mmol/L Normal [facility] ([place] Comment on above: Order Comment: CPAP Performed By: #### H CTRP, HGBRP, GLURP, CLRP, NARP, BGRP, KRP, CARP #### [address] [address] CO2 [Moles/Vol] 26.0 mmol/L Normal 22.0-30.0 [facility] ([place]) Comment on above: Order Comment: CPAP Performed By: #### H CTRP, HGBRP, GLURP, CLRP, NARP, BGRP, KRP, CARP #### [address] [address] HCO3 (Bld) [Moles/Vol] 24.6 mmol/L Normal 21.0-29.0 A [facility] ([place]) Comment on above: Order Comment: CPAP Performed By: #### H CTRP, HGBRP, GLURP, CLRP, NARP, BGRP, KRP, CARP #### [address] [address] Oxygen (Bld) [Partial pressure] 127.1 mm[Hg] High 74.0-108.0 [facility] [facility] [place] Comment on [place]: Order Comment: CPAP Performed By: #### H CTRP, HGBRP, GLURP, CLRP, NARP, BGRP, KRP, CARP #### [address] [address] Oxygen saturation in Blood 98.4 % High 92.0-96.0 [facility] ([place] Comment on above: Order Comment: CPAP Performed By: #### H CTRP, HGBRP, GLURP, CLRP, NARP, BGRP, KRP, CARP #### [address] [address] pCO2 45.6 mmHg Normal 32.0-46.0 [facility] ([place] Comment on above: Order Comment: CPAP Performed By: #### H CTRP, HGBRP, GLURP, CLRP, NARP, BGRP, KRP, CARP #### [address] [address] pH (Bld) 7.350 [pH] Low 7.380-7.460 [facility] ([place] Comment on above: Order Comment: CPAP Performed By: #### H CTRP, HGBRP, GLURP, CLRP, NARP, BGRP, KRP, CARP #### [address] [address] Barometric Pressure 709 mmHg Normal [facility] ([place]) Comment on above: Performed By: #### H CTRP, HGBRP, GLURP, CLRP, NARP, BGRP, KRP, CARP #### [address] [address] Base excess Calc (Bld) [Moles/Vol] -1.4000 mmol/L Normal [facility] ([place] Comment on above: Performed By: #### H CTRP, HGBRP, GLURP, CLRP, NARP, BGRP, KRP, CARP #### [address] [address] HCO3 (Bld) [Moles/Vol] 24.3 mmol/L Normal 21.0-29.0 [facility] ([place]) Comment on above: Performed By: #### H CTRP, HGBRP, GLURP, CLRP, NARP, BGRP, KRP, CARP #### [address] [address] Oxygen (Bld) [Partial pressure] 118.0 mm[Hg] High 74.0-108.0 [facility] ([place] Comment on above: Performed By: #### H CTRP, HGBRP, GLURP, CLRP, NARP, BGRP, KRP, CARP #### [address] [address] Oxygen saturation in Blood 98.2 % High 92.0-96.0 [facility] ([place] Comment on above: Performed By: #### H CTRP, HGBRP, GLURP, CLRP, NARP, BGRP, KRP, CARP #### [address] [address] pCO2 44.8 mmHg Normal 32.0-46.0 [facility] ([place] Comment on above: Performed By: #### H CTRP, HGBRP, GLURP, CLRP, NARP, BGRP, KRP, CARP #### [address] [address] pH (Bld) 7.352 [pH] Low 7.380-7.460 [facility] ([place] Comment on above: Performed By: #### H CTRP, HGBRP, GLURP, CLRP, NARP, BGRP, KRP, CARP #### [address] [address] Barometric Pressure 706 mmHg Normal [facility] ([place]) Comment on above: Performed By: #### B G #### [address] [address] Base excess Calc (Bld) [Moles/Vol] -2.3000 mmol/L Normal [facility] ([place] Comment on above: Performed By: #### B G #### [address] [address] CO2 [Moles/Vol] 24.6 mmol/L Normal 22.0-30.0 [facility] ([place] Comment on above: Performed By: #### B G #### [place] [address] HCO3 (Bld) [Moles/Vol] 23.3 mmol/L Normal 21.0-29.0 [facility] ([place] Comment on above: Performed By: #### B G #### [place] [address] Oxygen (Bld) [Partial pressure] 98.4 mm[Hg] Normal 74.0-108.0 [facility] ([place] Comment on above: Performed By: #### B G #### [place] [address] Oxygen saturation in Blood 97.4 % High 92.0-96.0 [facility] ([place] Comment on above: Performed By: #### B G #### [place] [address] pCO2 43.4 mmHg Normal 32.0-46.0 [facility] ([place] Comment on above: Performed By: #### B G #### [place] [address] pH (Bld) 7.348 [pH] Low 7.380-7.460 [facility] ([place] Comment on above: Performed By: #### B G #### [place] [address] BGOrdered By: SYSTEM SYSTEM on 11-23-2021 CO2 [Moles/Vol] 25.7 mmol/L Normal 22.0-30.0 [facility] Rapid [facility] SS Comment on above: Performed By: #### H CTRP, HGBRP, GLURP, CLRP, NARP, BGRP, KRP, CARP #### [place] [address] Performed By: #### K #### [place] [address] BGRPon 11-23-2021 Base Excess - POC -2.6 mmol/L Normal [facility] ([place] Comment on above: Performed By: #### H CTRP, HGBRP, GLURP, CLRP, NARP, BGRP, KRP, CARP #### [address] [address] CO2 [Moles/Vol] 23.5 mmol/L Normal 22.0-30.0 [facility] ([place] Comment on above: Performed By: #### H CTRP, HGBRP, GLURP, CLRP, NARP, BGRP, KRP, CARP #### [place] [id number] HCO3 (Bld) [Moles/Vol] 22.3 mmol/L Normal 21.0-29.0 [facility] ([place]) Comment on above: Performed By: #### H CTRP, HGBRP, GLURP, CLRP, NARP, BGRP, KRP, CARP #### [place] [address] Oxygen saturation in Blood 97.8 % High 92.0-96.0 [facility] ([place] Comment on above: Performed By: #### H CTRP, HGBRP, GLURP, CLRP, NARP, BGRP, KRP, CARP #### [address] [address] PCO2 - POC 38.7 mmHg Normal 32.0-46.0 [facility] ([place] Comment on above: Performed By: #### H CTRP, HGBRP, GLURP, CLRP, NARP, BGRP, KRP, CARP #### [place] [id number] pH (poct) - POC 7.378 Low 7.380-7.460 [facility] ([place]) Comment on above: Performed By: #### H CTRP, HGBRP, GLURP, CLRP, NARP, BGRP, KRP, CARP #### [place] [id number] PO2 - POC 123.0 mmHg High 74.0-108.0 [facility] ([place] Comment on above: Performed By: #### H CTRP, HGBRP, GLURP, CLRP, NARP, BGRP, KRP, CARP #### [place] [id number] Base Excess - POC -3.2 mmol/L Normal [facility] ([place] Comment on above: Performed By: #### H CTRP, HGBRP, GLURP, CLRP, NARP, BGRP, KRP, CARP #### [address] [address] CO2 [Moles/Vol] 22.8 mmol/L Normal 22.0-30.0 [facility] ([place] Comment on above: Performed By: #### H CTRP, HGBRP, GLURP, CLRP, NARP, BGRP, KRP, CARP #### [place] [id number] HCO3 (Bld) [Moles/Vol] 21.7 mmol/L Normal 21.0-29.0 [facility] ([place] Comment on above: Performed By: #### H CTRP, HGBRP, GLURP, CLRP, NARP, BGRP, KRP, CARP #### [place] [id number] Oxygen saturation in Blood 99.2 % High 92.0-96.0 [facility] ([place] Comment on above: Performed By: #### H CTRP, HGBRP, GLURP, CLRP, NARP, BGRP, KRP, CARP #### [place] [id number] PCO2 - POC 37.9 mmHg Normal 32.0-46.0 [facility] ([place] Comment on above: Performed By: #### H CTRP, HGBRP, GLURP, CLRP, NARP, BGRP, KRP, CARP #### [address] [address] pH (poct) - POC 7.375 Low 7.380-7.460 [facility] ([place] Comment on above: Performed By: #### H CTRP, HGBRP, GLURP, CLRP, NARP, BGRP, KRP, CARP #### [place] [id number] PO2 - POC 428.4 mmHg High 74.0-108.0 [facility] ([place] Comment on above: Performed By: #### H CTRP, HGBRP, GLURP, CLRP, NARP, BGRP, KRP, CARP #### [address] [address] Base Excess - POC -0.5 mmol/L Normal [facility] ([place] Comment on above: Performed By: #### K #### [place] [id number] Oxygen saturation in Blood 99.0 % High 92.0-96.0 [facility] ([place] Comment on above: Performed By: #### K #### [place] [address] PCO2 - POC 41.5 mmHg Normal 32.0-46.0 [facility] ([place] Comment on above: Performed By: #### K #### [place] [id number] pH (poct) - POC 7.388 Normal 7.380-7.460 [facility] ([place] Comment on above: Performed By: #### K #### [place] [address] PO2 - POC 450.3 mmHg High 74.0-108.0 [facility] ([place] Comment on above: Performed By: #### K #### [place] [address] Base Excess - POC -1.4 mmol/L Normal [facility] ([place] Comment on above: Performed By: #### H CTRP, HGBRP, GLURP, CLRP, NARP, BGRP, KRP, CARP #### [address] [address] CO2 [Moles/Vol] 24.0 mmol/L Normal 22.0-30.0 [facility] ([place] Comment on above: Performed By: #### H CTRP, HGBRP, GLURP, CLRP, NARP, BGRP, KRP, CARP #### [address] [address] HCO3 (Bld) [Moles/Vol] 22.8 mmol/L Normal 21.0-29.0 [facility] ([place] Comment on above: Performed By: #### H CTRP, HGBRP, GLURP, CLRP, NARP, BGRP, KRP, CARP #### [address] [address] Oxygen saturation in Blood 99.4 % High 92.0-96.0 [facility] ([place] Comment on above: Performed By: #### H CTRP, HGBRP, GLURP, CLRP, NARP, BGRP, KRP, CARP #### [place] [id number] PCO2 - POC 36.7 mmHg Normal 32.0-46.0 [facility] ([place] Comment on above: Performed By: #### H CTRP, HGBRP, GLURP, CLRP, NARP, BGRP, KRP, CARP #### [place] [id number] pH (poct) - POC 7.412 Normal 7.380-7.460 [facility] ([place] Comment on above: Performed By: #### H CTRP, HGBRP, GLURP, CLRP, NARP, BGRP, KRP, CARP #### [address] [address] PO2 - POC 386.4 mmHg High 74.0-108.0 [facility] ([place] Comment on above: Performed By: #### H CTRP, HGBRP, GLURP, CLRP, NARP, BGRP, KRP, CARP #### [place] [id number] Base Excess - POC -0.6 mmol/L Normal [facility] ([place] Comment on above: Performed By: #### H CTRP, HGBRP, GLURP, CLRP, NARP, BGRP, KRP, CARP #### [place] [id number] CO2 [Moles/Vol] 25.9 mmol/L Normal 22.0-30.0 [facility] ([place] Comment on above: Performed By: #### H CTRP, HGBRP, GLURP, CLRP, NARP, BGRP, KRP, CARP #### [place] [address] HCO3 (Bld) [Moles/Vol] 24.6 mmol/L Normal 21.0-29.0 [facility] ([place] Comment on above: Performed By: #### H CTRP, HGBRP, GLURP, CLRP, NARP, BGRP, KRP, CARP #### [place] [address] Oxygen saturation in Blood 99.4 % High 92.0-96.0 [facility] ([place] Comment on above: Performed By: #### H CTRP, HGBRP, GLURP, CLRP, NARP, BGRP, KRP, CARP #### [place] [address] PCO2 - POC 42.3 mmHg Normal 32.0-46.0 [facility] ([place] Comment on above: Performed By: #### H CTRP, HGBRP, GLURP, CLRP, NARP, BGRP, KRP, CARP #### [place] [address] pH (poct) - POC 7.382 Normal 7.380-7.460 [facility] ([place] Comment on above: Performed By: #### H CTRP, HGBRP, GLURP, CLRP, NARP, BGRP, KRP, CARP #### [place] [address] PO2 - POC 338.4 mmHg High 74.0-108.0 [facility] ([place] Comment on above: Performed By: #### H CTRP, HGBRP, GLURP, CLRP, NARP, BGRP, KRP, CARP #### [place] [address] BGRPOrdered By: SYSTEM [email or web address] on 11-23-2021 HCO3 (Bld) [Moles/Vol] 24.4 mmol/L Normal 21.0-29.0 A [facility] SS Comment on above: Performed By: #### K #### [address] [address] BMPon 11-23-2021 BUN/Creatinine Ratio 18.9 ratio Normal 10.0-22.0 [facility] ([place] Comment on above: Performed By: #### H CTRP, HGBRP, GLURP, CLRP, NARP, BGRP, KRP, CARP #### [address] [address] Calcium [Mass/Vol] 8.1 mg/dL Low 8.7-10.4 [facility] ([place] Comment on above: Performed By: #### H CTRP, HGBRP, GLURP, CLRP, NARP, BGRP, KRP, CARP #### [address] [address] Chloride [Moles/Vol] 108 mmol/L Normal 98-110 [facility] ([place] Comment on above: Performed By: #### H CTRP, HGBRP, GLURP, CLRP, NARP, BGRP, KRP, CARP #### [address] [address] CO2 [Moles/Vol] 24 mmol/L Normal 22-32 [facility] ([place] Comment on above: Performed By: #### H CTRP, HGBRP, GLURP, CLRP, NARP, BGRP, KRP, CARP #### [address] [address] Creatinine [Mass/Vol] 0.74 mg/dL Normal 0.50-1.20 [facility] ([place] Comment on above: Performed By: #### H CTRP, HGBRP, GLURP, CLRP, NARP, BGRP, KRP, CARP #### [address] [address] Electrolyte Balance 9.0 mEq/L Normal 4.0-15.0 [facility] ([place] Comment on above: Performed By: #### H CTRP, HGBRP, GLURP, CLRP, NARP, BGRP, KRP, CARP #### [address] [address] Glucose [Mass/Vol] 152 mg/dL High 82-115 [facility] ([place] Comment on above: Performed By: #### H CTRP, HGBRP, GLURP, CLRP, NARP, BGRP, KRP, CARP #### [address] [address] Potassium [Moles/Vol] 4.1 mmol/L Normal 3.5-5.0 [facility] ([place] Comment on above: Performed By: #### H CTRP, HGBRP, GLURP, CLRP, NARP, BGRP, KRP, CARP #### [address] [address] Sodium [Moles/Vol] 141 mmol/L Normal 136-145 [facility] ([place] Comment on above: Performed By: #### H CTRP, HGBRP, GLURP, CLRP, NARP, BGRP, KRP, CARP #### [address] [address] Urea nitrogen [Mass/Vol] 14.0 mg/dL Normal 8.0-22.0 [facility] ([place] Comment on above: Performed By: #### H CTRP, HGBRP, GLURP, CLRP, NARP, BGRP, KRP, CARP #### [address] [address] CAIONon 11-23-2021 Calcium Ionized 1.02 mmol/L Low 1.12-1.32 [facility] ([place] Comment on above: Performed By: #### H CTRP, HGBRP, GLURP, CLRP, NARP, BGRP, KRP, CARP #### [address] [address] CARPon 11-23-2021 Ionized Calcium - POC 0.99 mmol/L Low 1.12-1.32 [facility] ([place]) Comment on above: Performed By: #### H CTRP, HGBRP, GLURP, CLRP, NARP, BGRP, KRP, CARP #### [place] [address] Ionized Calcium - POC 1.04 mmol/L Low 1.12-1.32 [facility] ([place] Comment on above: Performed By: #### H CTRP, HGBRP, GLURP, CLRP, NARP, BGRP, KRP, CARP #### [place] [address] Ionized Calcium - POC 0.98 mmol/L Low 1.12-1.32 [facility] ([place] Comment on above: Performed By: #### K #### [place] [address] Ionized Calcium - POC 1.09 mmol/L Low 1.12-1.32 [facility] ([place] Comment on above: Performed By: #### H CTRP, HGBRP, GLURP, CLRP, NARP, BGRP, KRP, CARP #### [place] [address] Ionized Calcium - POC 1.17 mmol/L Normal 1.12-1.32 [facility] ([place] Comment on above: Performed By: #### H CTRP, HGBRP, GLURP, CLRP, NARP, BGRP, KRP, CARP #### [place] [address] CBCon 11-23-2021 Erythrocyte distribution width (RBC) [Ratio] 13.6 % Normal 11.5-15.5 [facility] ([place] Comment on above: Performed By: #### H CTRP, HGBRP, GLURP, CLRP, NARP, BGRP, KRP, CARP #### [place] [address] Hematocrit (Bld) [Volume fraction] 32.3 % Low 34.0-46.0 [facility] ([place] Comment on above: Performed By: #### H CTRP, HGBRP, GLURP, CLRP, NARP, BGRP, KRP, CARP #### [place] [address] Hgb 10.7 G/dL Low 12.0-16.0 [facility] ([place] Comment on above: Performed By: #### H CTRP, HGBRP, GLURP, CLRP, NARP, BGRP, KRP, CARP #### [place] [id number] MCH (RBC) [Entitic mass] 29.8 pg Normal 27.0-33.0 [facility] ([place] Comment on above: Performed By: #### H CTRP, HGBRP, GLURP, CLRP, NARP, BGRP, KRP, CARP #### [address] [address] MCHC 33.2 G/dL Normal 32.0-36.0 [facility] ([place] Comment on above: Performed By: #### H CTRP, HGBRP, GLURP, CLRP, NARP, BGRP, KRP, CARP #### [place] [address] MCV (RBC) [Entitic vol] 89.9 fL Normal 80.0-99.0 [facility] ([place] Comment on above: Performed By: #### H CTRP, HGBRP, GLURP, CLRP, NARP, BGRP, KRP, CARP #### [place] [address] Platelet 220 10 3/mcL Normal 150-450 [facility] ([place] Comment on above: Performed By: #### H CTRP, HGBRP, GLURP, CLRP, NARP, BGRP, KRP, CARP #### [place] [address] Platelet mean volume (Bld) [Entitic vol] 8.6 fL Normal 6.6-10.5 [facility] ([place] Comment on above: Performed By: #### H CTRP, HGBRP, GLURP, CLRP, NARP, BGRP, KRP, CARP #### [place] [address] RBC 3.60 10 6/mcL Low 4.10-5.30 [facility] ([place] Comment on above: Performed By: #### H CTRP, HGBRP, GLURP, CLRP, NARP, BGRP, KRP, CARP #### [address] [address] WBC 22.5 10 3/mcL High 4.5-10.8 [facility] ([place] Comment on above: Performed By: #### H CTRP, HGBRP, GLURP, CLRP, NARP, BGRP, KRP, CARP #### [address] [address] CLRPon 11-23-2021 Chloride [Moles/Vol] 102 mmol/L Normal 98-110 [facility] [place] Comment on above: Performed By: #### H CTRP, HGBRP, GLURP, CLRP, NARP, BGRP, KRP, CARP #### [address] [address] Chloride [Moles/Vol] 100 mmol/L Normal 98-110 [facility] ([place] Comment on above: Performed By: #### H CTRP, HGBRP, GLURP, CLRP, NARP, BGRP, KRP, CARP #### [address] [address] Chloride [Moles/Vol] 100 mmol/L Normal 98-110 [facility] [place] Comment on above: Performed By: #### K #### [address] [address] Chloride [Moles/Vol] 103 mmol/L Normal 98-110 [facility] ([place] Comment on above: Performed By: #### H CTRP, HGBRP, GLURP, CLRP, NARP, BGRP, KRP, CARP #### [address] [address] Chloride [Moles/Vol] 102 mmol/L Normal 98-110 [facility] ([place] Comment on above: Performed By: #### H CTRP, HGBRP, GLURP, CLRP, NARP, BGRP, KRP, CARP #### [address] [address] FIBon 11-23-2021 Fibrinogen 313 mg/dL Normal 250-560 [facility] [place] Comment on above: Performed By: #### H CTRP, HGBRP, GLURP, CLRP, NARP, BGRP, KRP, CARP #### [address] [address] Fibrinogen 491 mg/dL Normal 250-560 [facility] [place] Comment on above: Performed By: #### H CTRP, HGBRP, GLURP, CLRP, NARP, BGRP, KRP, CARP #### [address] [address] GLURPon 11-23-2021 Glucose [Mass/Vol] 183 mg/dL High 82-115 [facility] [place] Comment on above: Performed By: #### H CTRP, HGBRP, GLURP, CLRP, NARP, BGRP, KRP, CARP #### [address] [address] Glucose [Mass/Vol] 203 mg/dL High 82-115 [facility] [place] Comment on above: Performed By: #### H CTRP, HGBRP, GLURP, CLRP, NARP, BGRP, KRP, CARP #### [address] [address] Glucose [Mass/Vol] 201 mg/dL High 82-115 [facility] ([place] Comment on above: Performed By: #### H CTRP, HGBRP, GLURP, CLRP, NARP, BGRP, KRP, CARP #### [address] [address] Glucose [Mass/Vol] 150 mg/dL High 82-115 [facility] [place] Comment on above: Performed By: #### H CTRP, HGBRP, GLURP, CLRP, NARP, BGRP, KRP, CARP #### [address] [address] GLURPOrdered By: SYSTEM SYST EM on 11-23-2021 Glucose [Mass/Vol] 204 mg/dL High 82-115 Rap id Comm SS Comment on above: Performed By: #### K #### [place] [address] HCTRPon 11-23-2021 Hematocrit (Bld) [Volume fraction] 29.0 % Low 37.0-47.0 [facility] [place] Comment on above: Performed By: #### H CTRP, HGBRP, GLURP, CLRP, NARP, BGRP, KRP, CARP #### [place] [address] Hematocrit (Bld) [Volume fraction] 29.0 % Low 37.0-47.0 [facility] [place] Comment on above: Performed By: #### H CTRP, HGBRP, GLURP, CLRP, NARP, BGRP, KRP, CARP #### [place] [address] Hematocrit (Bld) [Volume fraction] 37.0 % Normal 37.0-47.0 [facility] [place] Comment on above: Performed By: #### H CTRP, HGBRP, GLURP, CLRP, NARP, BGRP, KRP, CARP #### [place] [address] Hematocrit (Bld) [Volume fraction] 40.0 % Normal 37.0-47.0 [facility] [place] Comment on above: Performed By: #### H CTRP, HGBRP, GLURP, CLRP, NARP, BGRP, KRP, CARP #### [place] [address] HCTRPOrdered By: SYSTEM SYST EM on 11-23-2021 Hematocrit (Bld) [Volume fraction] 28.0 % Low 37.0-47.0 Rapid Comm SS Comment on above: Performed By: #### K #### [place] [address] HGBRPon 11-23-2021 Hemoglobin (POC) 9.8 G/dL Low 12.0-16.0 [facility] [place] Comment on above: Performed By: #### H CTRP, HGBRP, GLURP, CLRP, NARP, BGRP, KRP, CARP #### [address] [address] Hemoglobin (POC) 9.9 G/dL Low 12.0-16.0 [facility] [place] Comment on above: Performed By: #### H CTRP, HGBRP, GLURP, CLRP, NARP, BGRP, KRP, CARP #### [place] [id number] Hemoglobin (POC) 9.5 G/dL Low 12.0-16.0 [facility] [place] Comment on above: Performed By: #### K #### [place] [address] Hemoglobin (POC) 12.5 G/dL Normal 12.0-16.0 [facility] ([place] Comment on above: Performed By: #### H CTRP, HGBRP, GLURP, CLRP, NARP, BGRP, KRP, CARP #### [place] [address] Hemoglobin (POC) 13.7 G/dL Normal 12.0-16.0 [facility] [place] Comment on above: Performed By: #### H CTRP, HGBRP, GLURP, CLRP, NARP, BGRP, KRP, CARP #### [place] [id number] Jayden 11-23-2021 Potassium [Moles/Vol] 4.2 mmol/L Normal 3.5-5.0 [facility] [place] Comment on above: Performed By: #### H CTRP, HGBRP, GLURP, CLRP, NARP, BGRP, KRP, CARP #### [place] [address] KRPon 11-23-2021 Potassium [Moles/Vol] 4.2 mmol/L Normal 3.5-5.0 [facility] ([place] Comment on above: Performed By: #### H CTRP, HGBRP, GLURP, CLRP, NARP, BGRP, KRP, CARP #### [place] [address] Potassium [Moles/Vol] 4.3 mmol/L Normal 3.5-5.0 [facility] ([place] Comment on above: Performed By: #### H CTRP, HGBRP, GLURP, CLRP, NARP, BGRP, KRP, CARP #### [place] [address] Potassium [Moles/Vol] 4.2 mmol/L Normal 3.5-5.0 [facility] ([place] Comment on above: Performed By: #### H CTRP, HGBRP, GLURP, CLRP, NARP, BGRP, KRP, CARP #### [place] [address] Potassium [Moles/Vol] 3.9 mmol/L Normal 3.5-5.0 [facility] ([place] Comment on above: Performed By: #### H CTRP, HGBRP, GLURP, CLRP, NARP, BGRP, KRP, CARP #### [place] [address] KRPOrdered By: SYSTEM SYSTEM on 11-23-2021 Potassium [Moles/Vol] 5.1 mmol/L High 3.5-5.0 [facility] Rapid Comm SS Comment on above: Performed By: #### K #### [place] [address] LABORATORYOrdered By: Angie Mujica on 11-23-2021 aPTT Coag (PPP) [Time] 32.5 s Invalid Interpretation Code 25.0 - 35.0 seconds AH Auto Coag SS Fibrinogen Coag (PPP) [Mass/Vol] 313 mg/dL Invalid Interpretation Code 250 - 560 mg/dL AH Auto Coag SS Heparin dose (APTT) None Invalid Interpretation Code AH Auto Coag SS INR Coag (PPP) [Relative time] 1.1 {INR} Invalid Interpretation Code AH Auto Coag SS PT Coag (PPP) [Time] 13.1 s Invalid Interpretation Code 9.0 - 14.9 seconds AH Auto Coag SS aPTT Coag (PPP) [Time] 25.6 s Invalid Interpretation Code 25.0 - 35.0 seconds Auto Coag SS Fibrinogen Coag (PPP) [Mass/Vol] 491 mg/dL Invalid Interpretation Code 250 - 560 mg/dL Auto Coag SS Heparin dose (APTT) Unknown (11/23/21 6:11 AM) Invalid Interpretation Code Auto Coag SS INR Coag (PPP) [Relative time] 0.9 {INR} Invalid Interpretation Code Auto Coag SS PT Coag (PPP) [Time] 10.8 s Invalid Interpretation Code 9.0 - 14.9 seconds Auto Coag SS LABORATORYOrdered By: Gera Morelos on 11-23-2021 Calcium.ionized (Bld) [Mass/Vol] 1.02 mmol/L Invalid Interpretation Code 1.12 - 1.32 mmol/L Auto Chem SS LABORATORYOrdered By: [facility] on 11-23-2021 Magnesium [Mass/Vol] 2.5 mg/dL Invalid Interpretation Code 1.6 - 2.4 mg/dL ADM SS Phosphate [Mass/Vol] 1.5 mg/dL Invalid Interpretation Code 2.4 - 5.1 mg/dL ADM SS Base excess Calc (Bld) [Moles/Vol] -2.6000 mmol/L Invalid Interpretation Code Rapid Comm SS Calcium.ionized (Bld) [Mass/Vol] 0.99 mmol/L Invalid Interpretation Code 1.12 - 1.32 mmol/L Rapid Comm SS Chloride [Moles/Vol] 102 mmol/L Invalid Interpretation Code 98 - 110 mEq/L Rapid Comm SS CO2 (Bld) [Partial pressure] 38.7 mm[Hg] Invalid Interpretation Code 32.0 - 46.0 mm Hg Rapid Comm SS CO2 [Moles/Vol] 23.5 mmol/L Invalid Interpretation Code 22.0 - 30.0 mmol/L Rapid Comm SS Glucose [Mass/Vol] 183 mg/dL Invalid Interpretation Code 82 - 115 mg/dL Rapid Comm SS HCO3 (Bld) [Moles/Vol] 22.3 mmol/L Invalid Interpretation Code 21.0 - 29.0 mmol/L Rapid Comm SS Hematocrit (Bld) [Volume fraction] 29.0 % Invalid Interpretation Code 37.0 - 47.0 % Rapid Comm SS Hemoglobin (Bld) [Mass/Vol] 9.8 G/dL Invalid Interpretation Code 12.0 - 16.0 G/dL Rapid Comm SS Oxygen (Bld) [Partial pressure] 123.0 mm[Hg] Invalid Interpretation Code 74.0 - 108.0 mm Hg Rapid Comm SS pH (Bld) 7.378 [pH] Invalid Interpretation Code 7.380 - 7.460 Rapid Comm SS Potassium [Moles/Vol] 4.2 mmol/L Invalid Interpretation Code 3.5 - 5.0 mEq/L Rapid Comm SS Sodium [Moles/Vol] 134 mmol/L Invalid Interpretation Code 136 - 145 mEq/L Rapid Comm SS Base excess Calc (Bld) [Moles/Vol] -3.2000 mmol/L Invalid Interpretation Code Rapid Comm SS Calcium.ionized (Bld) [Mass/Vol] 1.04 mmol/L Invalid Interpretation Code 1.12 - 1.32 mmol/L Rapid Comm SS CO2 (Bld) [Partial pressure] 37.9 mm[Hg] Invalid Interpretation Code 32.0 - 46.0 mm Hg Rapid Comm SS CO2 [Moles/Vol] 22.8 mmol/L Invalid Interpretation Code 22.0 - 30.0 mmol/L Rapid Comm SS Glucose [Mass/Vol] 203 mg/dL Invalid Interpretation Code 82 - 115 mg/dL Rapid Comm SS HCO3 (Bld) [Moles/Vol] 21.7 mmol/L Invalid Interpretation Code 21.0 - 29.0 mmol/L Rapid Comm SS Hematocrit (Bld) [Volume fraction] 29.0 % Invalid Interpretation Code 37.0 - 47.0 % Rapid Comm SS Hemoglobin (Bld) [Mass/Vol] 9.9 G/dL Invalid Interpretation Code 12.0 - 16.0 G/dL Rapid Comm SS Oxygen (Bld) [Partial pressure] 428.4 mm[Hg] Invalid Interpretation Code 74.0 - 108.0 mm Hg Rapid Comm SS pH (Bld) 7.375 [pH] Invalid Interpretation Code 7.380 - 7.460 Rapid Comm SS Potassium [Moles/Vol] 4.3 mmol/L Invalid Interpretation Code 3.5 - 5.0 mEq/L Rapid Comm SS Base excess Calc (Bld) [Moles/Vol] -0.5000 mmol/L Invalid Interpretation Code Rapid Comm SS Calcium.ionized (Bld) [Mass/Vol] 0.98 mmol/L Invalid Interpretation Code 1.12 - 1.32 mmol/L Rapid Comm SS CO2 (Bld) [Partial pressure] 41.5 mm[Hg] Invalid Interpretation Code 32.0 - 46.0 mm Hg AH Rapid Comm SS Hemoglobin (Bld) [Mass/Vol] 9.5 G/dL Invalid Interpretation Code 12.0 - 16.0 G/dL AH Rapid Comm SS Oxygen (Bld) [Partial pressure] 450.3 mm[Hg] Invalid Interpretation Code 74.0 - 108.0 mm Hg Rapid Comm SS pH (Bld) 7.388 [pH] Invalid Interpretation Code 7.380 - 7.460 Rapid Comm SS LABORATORYOrdered By: Flor Acevedo on 11-23-2021 ABO and Rh group Nom (Bld) Blood group O Rh(D) positive Invalid Interpretation Code BB Auto SS Blood group antibody screen Ql NEG (11/23/21 6:11 AM) Invalid Interpretation Code BB Auto SS RBC Product Ready RBC Ready for Pickup (11/23/21 5:00 AM) Invalid Interpretation Code BB Manual SS LABORATORYOrdered By: Debbie Lara on 11-23-2021 Platelet Product Ready Platelet Ready fo r Pickup (11/23/21 5:43 AM) Invalid Interpretation Code BB Manual SS Laboratory - Chemistry and C hemistry - challengeOrdered By: SYSTEM SYSTEM on 11-23-2021 Chloride [Moles/Vol] 100 mmol/L Invalid Interpretation Code 98 - 110 mEq/L Rapid Comm SS Sodium [Moles/Vol] 132 mmol/L Invalid Interpretation Code 136 - 145 mEq/L Rapid Comm SS MGon 11-23-2021 Magnesium [Mass/Vol] 2.5 mg/dL High 1.6-2.4 [facility] ([place]) Comment on above: Performed By: #### H CTRP, HGBRP, GLURP, CLRP, NARP, BGRP, KRP, CARP #### [facility] [address] [place] [address] NARPon 11-23-2021 Sodium [Moles/Vol] 134 mmol/L Low 136-145 [facility] ([place]) Comment on above: Performed By: #### H CTRP, HGBRP, GLURP, CLRP, NARP, BGRP, KRP, CARP #### [place] [id number] Sodium [Moles/Vol] 132 mmol/L Low 136-145 [facility] ([place]) Comment on above: Performed By: #### H CTRP, HGBRP, GLURP, CLRP, NARP, BGRP, KRP, CARP #### [place] [address] Sodium [Moles/Vol] 132 mmol/L Low 136-145 [facility] ([place] Comment on above: Performed By: #### K #### [place] [address] Sodium [Moles/Vol] 134 mmol/L Low 136-145 [facility] ([place] Comment on above: Performed By: #### H CTRP, HGBRP, GLURP, CLRP, NARP, BGRP, KRP, CARP #### [place] [address] Sodium [Moles/Vol] 136 mmol/L Normal 136-145 [facility] ([place] Comment on above: Performed By: #### H CTRP, HGBRP, GLURP, CLRP, NARP, BGRP, KRP, CARP #### [place] [address] PHOSon 11-23-2021 Phosphate [Mass/Vol] 1.5 mg/dL Low 2.4-5.1 [facility] ([place] Comment on above: Result Comment: No te - New Reference Range in effect 19 Performed By: #### H CTRP, HGBRP, GLURP, CLRP, NARP, BGRP, KRP, CARP #### [place] [address] PLTon 11-23-2021 Platelet 283 10 3/mcL Normal 150-450 [facility] ([place]) Comment on above: Performed By: #### H CTRP, HGBRP, GLURP, CLRP, NARP, BGRP, KRP, CARP #### [place] [address] PROon 11-23-2021 INR Coag (PPP) [Relative time] 1.1 {INR} Normal [facility] ([place] Comment on above: Result Comment: The [employer] (CHEST, 1991, 102:312S-25S) recommended therapeutic range for oral anticoagulant therapy is: LOW RISK: Prophylaxis of venous thrombosis INR: 2.0-3.0 Treatment of pulmonary embolism 2.0-3.0 Prevention of systemic embolism 2.0-3.0 HIGH RISK: Mechanical prosthetic valves 2.5-3.5 Performed By: #### H CTRP, HGBRP, GLURP, CLRP, NARP, BGRP, KRP, CARP #### [facility] [address] [place] [id number] PT Coag (PPP) [Time] 13.1 s Normal 9.0-14.9 [facility] ([place]) Comment on above: Result Comment: Effe ctive 09/30/07, Protime results may be affected by some antibiotics (i.e. Ciprofloxacin, Azithromycin, Bactrim) which may potentiate the action of oral anticoagulants, with further increases in Protime/INR. Performed By: #### H CTRP, HGBRP, GLURP, CLRP, NARP, BGRP, KRP, CARP #### [address] [address] INR Coag (PPP) [Relative time] 0.9 {INR} Normal [facility] ([place] Comment on above: Result Comment: [employer] (CHEST, 1991, 102:312S-25S) recommended therapeutic range for oral anticoagulant therapy is: LOW RISK: Prophylaxis of venous thrombosis INR: 2.0-3.0 Treatment of pulmonary embolism 2.0-3.0 Prevention of systemic embolism 2.0-3.0 HIGH RISK: Mechanical prosthetic valves 2.5-3.5 Performed By: #### H CTRP, HGBRP, GLURP, CLRP, NARP, BGRP, KRP, CARP #### [facility] [address] [place] [address] PT Coag (PPP) [Time] 10.8 s Normal 9.0-14.9 [facility] ([place] Comment on above: Result Comment: Effe ctive 09/30/07, Protime results may be affected by some antibiotics (i.e. Ciprofloxacin, Azithromycin, Bactrim) which may potentiate the action of oral anticoagulants, with further increases in Protime/INR. Performed By: #### H CTRP, HGBRP, GLURP, CLRP, NARP, BGRP, KRP, CARP #### [address] [address] Platelet (Product)on Platelet Product Ready Platelet Ready fo r Pickup Normal [facility] ([place] Comment on above: Order Comment: ON HO LD FOR CVOR Performed By: #### H CTRP, HGBRP, GLURP, CLRP, NARP, BGRP, KRP, CARP #### [address] [address] RBC (Product)on 11-23-2021 RBC Product Ready RBC Ready for Pickup Normal [facility] ([place] Comment on above: Performed By: #### H CTRP, HGBRP, GLURP, CLRP, NARP, BGRP, KRP, CARP #### [address] [address] XR CHEST 1 VIEWon 11-23-2021 XR CHEST 1 VIEW ORIGINAL EXAMINATION: ONE XRAY VIEW OF THE CHEST11/23/2021 1:29 pm COMPARISON: October 31, 2021 chest radiograph HISTORY: ORDERING SYSTEM PROVIDED HISTORY: Reason for Exam: chst tubes FINDINGS: Endotracheal tube terminates 4.4 cm above the fredy. An enteric tube courses centrally with the distal tip beyond the field of view in the side port under the left hemidiaphragm. There has been interval sternotomy, with overlying surgical clips, median sternotomy wires, mediastinal drain and left chest tube. Left subclavian line terminates at the distal SVC. The cardiac silhouette is mildly enlarged, partly relating to portable technique. There is mild basilar airspace disease with bilateral streaky interstitial opacities. No large pleural effusion. No pneumothorax. IMPRESSION: 1. Lines and tubes as described above. 2. Interval sternotomy with interstitial opacities, likely on the basis of edema, with left basilar consolidation. Interpreted by: Polly Ram DO Preliminary Report By: Polly Bitonte, DO Electronically signed By Polly Ram DO Dictated Date: 11/23/2021 1:38:02 PM Prelim Date: 11/23/2021 1:40:56 PM Sign Date: 11/23/2021 1:40:56 PM Ordering Provider: POLLY Mercado [facility] ([place]) [id number] 11-17-2021 SARS-CoV-2 (COVID-19) RNA SLOAN+probe Ql (Unsp spec) Negative Normal Negative [facility] ([place] Comment on above: Performed By: #### H CTRP, HGBRP, GLURP, CLRP, NARP, BGRP, KRP, CARP #### [address] [address] SARS-CoV-2 (COVID-19) RNA SLOAN+probe Ql (Unsp spec) Normal [facility] ([place] Comment on above: Result Comment: Nega tive results do not preclude SARS-CoV-2 infection and should not be used as the sole basis for patient management decisions. Negative results must be combined with clinical observations, patient history, and epidemiological information. There is a risk of false negative values resulting from improperly collected, transported, or handled specimens. There is a risk of false negative values due to the presence of sequence variants in the pathogen targets of the assay, procedural errors, amplification inhibitors in specimens, or inadequate numbers of organisms for amplification. STEPH SARS-CoV-2 Assay is a Real-Time reverse-transcriptase polymerase chain reaction (RT-PCR) based qualitative in vitro diagnostic test intended for the qualitative detection of nucleic acid from the SARS-CoV-2 in nasopharyngeal swab specimens collected from individuals suspected of COVID-19 by their healthcare provider. Testing is limited to laboratories certified under the Clinical Laboratory Improvement Amendments of 1988 (CLIA), 42 U.S.C. ?263a, to perform moderate and high complexity tests. COVID-19 Int Performed By: #### H CTRP, HGBRP, GLURP, CLRP, NARP, BGRP, KRP, CARP #### [address] [address] Date of Onset [id number] Invalid Interpretation Code [facility] ([place] Comment on above: Performed By: #### H CTRP, HGBRP, GLURP, CLRP, NARP, BGRP, KRP, CARP #### [place] [address] Employed in Healthcare [facility] ([place] Comment on above: Performed By: #### H CTRP, HGBRP, GLURP, CLRP, NARP, BGRP, KRP, CARP #### [place] [address] First Test No [facility] ([place] Comment on above: Performed By: #### H CTRP, HGBRP, GLURP, CLRP, NARP, BGRP, KRP, CARP #### [place] [address] Hospitalized No [facility] ([place] Comment on above: Performed By: #### H CTRP, HGBRP, GLURP, CLRP, NARP, BGRP, KRP, CARP #### [place] [address] ICU No [facility] ([place] Comment on above: Performed By: #### H CTRP, HGBRP, GLURP, CLRP, NARP, BGRP, KRP, CARP #### [place] [address] Not [facility] ([place] Comment on above: Performed By: #### H CTRP, HGBRP, GLURP, CLRP, NARP, BGRP, KRP, CARP #### [place] [address] Resides in Congregate Care Setting [facility] ([place] Comment on above: Performed By: #### H CTRP, HGBRP, GLURP, CLRP, NARP, BGRP, KRP, CARP #### [place] [address] Symptomatic as Defined by [facility] No [facility] ([place] Comment on above: Performed By: #### H CTRP, HGBRP, GLURP, CLRP, NARP, BGRP, KRP, CARP #### [place] [address] LABORATORYOrdered By: Emily Gee on 11-17-2021 ADMITTED TO INTENSIVE CARE UNIT FOR CONDITION OF INTEREST:FIND:PT:^PATIE NT:ORD: No (11/17/21 12:00 PM) Invalid Interpretation Code AO Auto Urine SS EMPLOYED IN A HEALTHCARE SETTING:FIND:PT:^PATIEN T:ORD: No (11/17/21 12:00 PM) Invalid Interpretation Code AO Auto Urine SS FIRST TEST FOR CONDITION OF INTEREST:FIND:PT:^PATIE NT:ORD: No (11/17/21 12:00 PM) Invalid Interpretation Code AO Auto Urine SS HAS SYMPTOMS RELATED TO CONDITION OF INTEREST:FIND:PT:^PATIE NT:ORD: No (11/17/21 12:00 PM) Invalid Interpretation Code AO Auto Urine SS Illness or injury onset date and time [id number] Invalid Interpretation Code AO Auto Urine SS Patient was hospitalized because of this condition No (11/17/21 12:00 PM) Invalid Interpretation Code AO Auto Urine SS status Not (11/17/21 12:00 PM) Invalid Interpretation Code AO Auto Urine SS RESIDES IN A CONGREGATE CARE SETTING:FIND:PT:^PATIEN T:ORD: No (11/17/21 12:00 PM) Invalid Interpretation Code AO Auto Urine SS SARS-CoV-2 (COVID-19) RNA SLOAN+probe Ql (Resp) Negative results do not preclude SARS-CoV-2 infection and should not be used as the sole basis for patient management decisions. Negative results must be combined with clinical observations, patient history, and epidemiological information.There is a risk of false negative values resulting from improperly collected, transported, or handled specimens.There is a risk of false negative values due to the presence of sequence variants in the pathogen targets of the assay, procedural errors, amplification inhibitors in specimens, or inadequate numbers of organisms for amplification.STEPH SARS-CoV-2 Assay is a Real-Time reverse-transcriptase polymerase chain reaction (RT-PCR) based qualitative in vitro diagnostic test intended for the qualitative detection of nucleic acid from the SARS-CoV-2 in nasopharyngeal swab specimens collected from individuals suspected of COVID-19 by their healthcare provider. Testing is limited to laboratories certified under the Clinical Laboratory Improvement Amendments of 1988 (CLIA), 42 U.S.C. 263a, to perform moderate and high complexity tests. Invalid Interpretation Code AO Auto Urine SS Absolute lymphocyte counton 11-05-2021 Lymphocytes Auto (Unsp spec) [#/Vol] 3.11 10*3/uL 0.83-4.[address] [facility] Work Phone: Basophil percentageon 2021 Basophils/100 WBC (Bld) 0.6 % 0-1 [facility] Work Phone: Chloride [Moles/Vol] 102 mmol/L 98-107 [facility] Work Phone: Eosinophils/100 WBC (Bld) 1.7 % 0-[address] [facility] Work Phone: Glucose [Mass/Vol] 183 mg/dL 74-106 [facility] Work Phone: Comment on above: Fasting Glucose resu lt greater than or equal to 126 mg/dL suggests DIABETES MELLITUS per A.D.A. criteria. Neutrophils (Bld) [#/Vol] 11.0 10*3/uL 2.0-7.[address] [facility] Work Phone: Neutrophils/100 WBC (Bld) 70.1 % 47-[address] [facility] Work Phone: Potassium [Moles/Vol] 4.1 mmol/L 3.5-5.[address] [facility] Work Phone: Sodium [Moles/Vol] 136 mmol/L 136-145 [facility] Work Phone: WBC (Bld) [#/Vol] 15.7 10*3/uL 4.4-11.0 [facility] Work Phone: Blood erythrocytes count (nu mber/volume)on 11-05-2021 RBC (Bld) [#/Vol] 4.84 10*6/uL 4.2-5.4 [facility] Work Phone: Blood hemoglobin measurement (mass/volume)on 11-05-2021 Hemoglobin (Bld) [Mass/Vol] 14.4 g/dL 12.0-15.[address] [facility] Work Phone: Blood lymphocytes/100 leukoc yteson 11-05-2021 Lymphocytes/100 WBC (Bld) 19.8 % 19-[address] [facility] Work Phone: Blood monocytes/100 leukocyt eson 11-05-2021 Monocytes/100 WBC (Bld) 6.9 % 0-10 [facility] Work Phone: Blood platelet mean volumeon 11-05-2021 Platelet mean volume (Bld) [Entitic vol] 10.2 fL 6.2-12.[address] [facility] Work Phone: Determination of erythrocyte mean corpuscular volume (MCV)on 11-05-2021 MCV (RBC) [Entitic vol] 91.3 fL 81-99 [facility] Work Phone: Hematocrit Auto (Bld) [Volum e fraction]on 11-05-2021 Hematocrit (Bld) [Volume fraction] 44.2 % 37-[address] [facility] Work Phone: Laboratory - Chemistry and C hemistry - challengeon 11-05-2021 CO2 [Moles/Vol] 27.0 mmol/L 21.0-32.[address] [facility] Work Phone: Urea nitrogen/Creatinine [Mass ratio] 19.9 mg/mg 10-[address] [facility] Work Phone: Laboratory - Coagulationon 0 11-05-2021 aPTT Coag (Bld) [Time] 25.6 s 24.1-36.[address] [facility] Work Phone: Laboratory - Hematology and Cell countson 11-05-2021 Erythrocyte distribution width (RBC) [Entitic vol] 44.1 fL 35.1-43.[address] [facility] Work Phone: Erythrocyte distribution width (RBC) [Ratio] 13.1 % 11.6-14.[address] [facility] Work Phone: Immature granulocytes/100 WBC (Bld) 0.900 % 0.0-0.[address] [facility] Work Phone: Comment on above: IG% - Immature Granu locytes (promyelocytes, myelocytes and metamyelocytes) > 1% indicates that a LEFT SHIFT is Present. MCH (RBC) [Entitic mass] 29.8 pg 27.0-32.[address] [facility] Work Phone: [phone] Nucleated RBC/100 WBC (Bld) [Ratio] 0 % 0-[address] [facility] Work Phone: [phone] MCHC Auto (RBC) [Mass/Vol]on 11-05-2021 MCHC (RBC) [Mass/Vol] 32.6 g/dL 32-[address] [facility] Work Phone: No Panel Informationon 11-05 Estimated Creatinine Clearance Calc 51.75 ml/min [facility] Work Phone: [phone] Estimated GFR (MDRD) Amer 91 mL/min >[address] [facility] Work Phone: Comment on above: GFR Calc Estimated GFR (MDRD) Non-Af Amer 75 mL/min >[address] [facility] Work Phone: [phone] Comment on above: Non- GFR Calc Troponin I High Sensitivity 12 pg/mL 3.0-54.[address] [facility] Work Phone: [phone] Comment on above: Please Note: New De[place]re t Units and Gender Specific Reference Ranges. For more information see Policy Stat Procedure [place] High Sensitivity Troponin (TNIH) and attachments. Platelets bldon 11-05-2021 Platelets (Bld) [#/Vol] 320 10*3/uL 150-[address] [facility] Work Phone: [phone] Serum or plasma calcium betsy urement (mass/volume)on 11-05-2021 Calcium [Mass/Vol] 9.6 mg/dL 8.5-10.1 [facility] Work Phone: [phone] Serum or plasma creatinine m easurement (mass/volume)on 11-05-2021 Creatinine [Mass/Vol] 0.80 mg/dL 0.55-1.[address] [facility] Work Phone: [phone] Comment on above: The validity of the calculated GFR & GFRAA in patients over 70 years has not been determined. Clinical correlation is essential. Serum or plasma urea nitroge n measurement (mass/volume)on 11-05-2021 Urea nitrogen [Mass/Vol] 16 mg/dL -[address] [facility] Work Phone: Thin prep Papanicolaou smear with manual screeningon 11-05-2021 Thin prep Papanicolaou smear with manual screening 7 5-[address] [facility] Work Phone: XR CHEST 2 VIEWSon XR CHEST 2 VIEWS ORIGINAL EXAMINATION: TWO XRAY VIEWS OF THE CHEST10/31/2021 1:51 pm COMPARISON: Chest radiograph 10/11/2021, 12/20/2016; CT a chest 06/27/2020 CT chest 09/02/2016 HISTORY: ORDERING SYSTEM PROVIDED HISTORY: Reason for Exam: preoperative radiograph, history of smoking, stent placement FINDINGS: Normal heart size. Atherosclerotic aorta. Prior coronary stenting. No focal consolidation or pulmonary edema. A 7 mm left upper lobe nodule is stable compared to a remote 2017 CT. Mild emphysema. No pneumothorax or pleural effusion. No acute osseous abnormalities. Degenerative changes of the spine. Costochondral calcifications. IMPRESSION: No acute cardiopulmonary process. Stable 7 mm nodule in the left upper lobe when compared to remote 2017 CT. I have personally reviewed the images of this examination agree with resident's findings and interpretation. Interpreted by: Tomi Muir Preliminary Report By: Norbert Lagunas Electronically signed By Tomi Muir Dictated Date: 10/31/2021 3:40:11 PM Prelim Date: 11/01/2021 8:01:10 AM Sign Date: 11/01/2021 8:01:10 AM Ordering Provider: POLLY PHILIPPE [facility] ([place]) .Auto Diffon 10-31-2021 Basophil, Absolute 0.1 10 3/mcL Normal 0.0-0.3 [facility] ([place]) Comment on above: Performed By: #### H CTRP, HGBRP, GLURP, CLRP, NARP, BGRP, KRP, CARP #### [facility] [address] [place] [address] Basophils/100 WBC (Bld) 0.8 % Normal 0.0-2.5 [facility] ([place]) Comment on above: Performed By: #### H CTRP, HGBRP, GLURP, CLRP, NARP, BGRP, KRP, CARP #### [address] [address] Eosinophil, Absolute 0.3 10 3/mcL Normal 0.0-0.7 [facility] ([place]) Comment on above: Performed By: #### H CTRP, HGBRP, GLURP, CLRP, NARP, BGRP, KRP, CARP #### [address] [address] Eosinophils/100 WBC (Bld) 2.6 % Normal 0.0-6.0 [facility] ([place]) Comment on above: Performed By: #### H CTRP, HGBRP, GLURP, CLRP, NARP, BGRP, KRP, CARP #### [address] [address] Lymphocyte, Absolute 2.5 10 3/mcL Normal 0.9-4.3 [facility] ([place]) Comment on above: Performed By: #### H CTRP, HGBRP, GLURP, CLRP, NARP, BGRP, KRP, CARP #### [address] [address] Lymphocytes/100 WBC (Bld) 22.3 % Normal 20.0-40.0 [facility] ([place]) Comment on above: Performed By: #### H CTRP, HGBRP, GLURP, CLRP, NARP, BGRP, KRP, CARP #### [address] [address] Monocyte, Absolute 0.7 10 3/mcL Normal 0.1-1.4 [facility] ([place]) Comment on above: Performed By: #### H CTRP, HGBRP, GLURP, CLRP, NARP, BGRP, KRP, CARP #### [address] [address] Monocytes/100 WBC (Bld) 6.5 % Normal 2.0-13.0 [facility] ([place]) Comment on above: Performed By: #### H CTRP, HGBRP, GLURP, CLRP, NARP, BGRP, KRP, CARP #### [address] [address] Neutrophils/100 WBC (Bld) 67.8 % Normal 50.0-75.0 [facility] ([place] Comment on above: Performed By: #### H CTRP, HGBRP, GLURP, CLRP, NARP, BGRP, KRP, CARP #### [address] [address] .GFRon 10-31-2021 GFR Non- >60 Normal [facility] ([place] Comment on above: Result Comment: GFR Population mean for , Non- Americans Ages 20-29 = 116 mL/min/1.73 sq.m. Ages 30-39 = 107 mL/min/1.73 sq.m. Ages 40-49 = 99 mL/min/1.73 sq.m. Ages 50-59 = 93 mL/min/1.73 sq.m. Ages 60-69 = 85 mL/min/1.73 sq.m. Ages 70+ = 75 mL/min/1.73 sq.m. Chronic Kidney Disease: Less than 60 mL/min/1.73 square meters End Stage Renal Disease: Less than 15 mL/min/1.73 square meters Performed By: #### H CTRP, HGBRP, GLURP, CLRP, NARP, BGRP, KRP, CARP #### [address] [address] GFR >60 Normal [facility] ([place] Comment on above: Result Comment: GFR Population mean for , Non- Americans Ages 20-29 = 116 mL/min/1.73 sq.m. Ages 30-39 = 107 mL/min/1.73 sq.m. Ages 40-49 = 99 mL/min/1.73 sq.m. Ages 50-59 = 93 mL/min/1.73 sq.m. Ages 60-69 = 85 mL/min/1.73 sq.m. Ages 70+ = 75 mL/min/1.73 sq.m. Chronic Kidney Disease: Less than 60 mL/min/1.73 square meters End Stage Renal Disease: Less than 15 mL/min/1.73 square meters Performed By: #### H CTRP, HGBRP, GLURP, CLRP, NARP, BGRP, KRP, CARP #### [place] [address] .MDWon 10-31-2021 Monocyte Distribution Width Not performed Normal 0.00-20.00 [facility] ([place] Comment on above: Result Comment: MDW testing performed only on adult ER patients between the ages of 18-89 years. Performed By: #### H CTRP, HGBRP, GLURP, CLRP, NARP, BGRP, KRP, CARP #### [place] [address] .NEUABSon 10-31-2021 Neutrophil, Absolute 7.7 10 3/mcL Normal 2.3-8.1 [facility] ([place]) Comment on above: Performed By: #### H CTRP, HGBRP, GLURP, CLRP, NARP, BGRP, KRP, CARP #### [place] [address] A1Con 10-31-2021 HbA1c (Bld) [Mass fraction] 9.7 % High 4.0-6.0 [facility] ([place] Comment on above: Performed By: #### H CTRP, HGBRP, GLURP, CLRP, NARP, BGRP, KRP, CARP #### [place] [place] [id number] ABO/Rh (Gel)on 10-31-2021 ABO/Rh Interp Positive Invalid Interpretation Code [facility] ([place]) Comment on above: Performed By: #### H CTRP, HGBRP, GLURP, CLRP, NARP, BGRP, KRP, CARP #### [id number] ABS (Gel)on 10-31-2021 ABSC Interp (Gel) Negative Normal [facility] ([place]) Comment on above: Performed By: #### H CTRP, HGBRP, GLURP, CLRP, NARP, BGRP, KRP, CARP #### [id number] APTTon 10-31-2021 aPTT Coag (Bld) [Time] 28.2 s Normal 25.0-35.0 [facility] ([place]) Comment on above: Result Comment: For Heparin anticoagulation therapy, the recommended therapeutic range is: 54-77 seconds (APTT Correlation with Anti-Xa therapeutic range of 0.3-0.7 units/ml). PLEASE REFERENCE THE PHARMACY PROTOCOL FOR DOSING. Performed By: #### H CTRP, HGBRP, GLURP, CLRP, NARP, BGRP, KRP, CARP #### [place] [address] Heparin dose (APTT) None Normal [facility] ([place]) Comment on above: Performed By: #### H CTRP, HGBRP, GLURP, CLRP, NARP, BGRP, KRP, CARP #### [place] [address] CBCon 10-31-2021 Erythrocyte distribution width (RBC) [Ratio] 13.6 % Normal 11.5-15.5 [facility] ([place] Comment on above: Performed By: #### H CTRP, HGBRP, GLURP, CLRP, NARP, BGRP, KRP, CARP #### [place] [address] Hematocrit (Bld) [Volume fraction] 40.5 % Normal 34.0-46.0 [facility] ([place] Comment on above: Performed By: #### H CTRP, HGBRP, GLURP, CLRP, NARP, BGRP, KRP, CARP #### [place] [address] Hgb 13.4 G/dL Normal 12.0-16.0 [facility] ([place] Comment on above: Performed By: #### H CTRP, HGBRP, GLURP, CLRP, NARP, BGRP, KRP, CARP #### [place] [address] MCH (RBC) [Entitic mass] 29.8 pg Normal 27.0-33.0 [facility] ([place] Comment on above: Performed By: #### H CTRP, HGBRP, GLURP, CLRP, NARP, BGRP, KRP, CARP #### [id number] MCHC 33.1 G/dL Normal 32.0-36.0 [facility] ([place] Comment on above: Performed By: #### H CTRP, HGBRP, GLURP, CLRP, NARP, BGRP, KRP, CARP #### [place] [address] MCV (RBC) [Entitic vol] 90.0 fL Normal 80.0-99.0 [facility] ([place]) Comment on above: Performed By: #### H CTRP, HGBRP, GLURP, CLRP, NARP, BGRP, KRP, CARP #### [place] [address] Platelet 291 10 3/mcL Normal 150-450 [facility] ([place]) Comment on above: Performed By: #### H CTRP, HGBRP, GLURP, CLRP, NARP, BGRP, KRP, CARP #### [place] [address] Platelet mean volume (Bld) [Entitic vol] 8.9 fL Normal 6.6-10.5 [facility] ([place] Comment on above: Performed By: #### H CTRP, HGBRP, GLURP, CLRP, NARP, BGRP, KRP, CARP #### [place] [address] RBC 4.50 10 6/mcL Normal 4.10-5.30 [facility] ([place] Comment on above: Performed By: #### H CTRP, HGBRP, GLURP, CLRP, NARP, BGRP, KRP, CARP #### [place] [address] WBC 11.4 10 3/mcL High 4.5-10.8 [facility] ([place] Comment on above: Performed By: #### H CTRP, HGBRP, GLURP, CLRP, NARP, BGRP, KRP, CARP #### [address] [address] CMPon 10-31-2021 Albumin Level 3.4 G/dL Normal 3.2-4.8 [facility] ([place] Comment on above: Performed By: #### H CTRP, HGBRP, GLURP, CLRP, NARP, BGRP, KRP, CARP #### [address] [address] Albumin/Globulin [Mass ratio] 1.0 {ratio} Normal 0.9-1.6 [facility] ([place] Comment on above: Performed By: #### H CTRP, HGBRP, GLURP, CLRP, NARP, BGRP, KRP, CARP #### [address] [address] ALP [Catalytic activity/Vol] 113 U/L Normal 38-126 [facility] ([place]) Comment on above: Performed By: #### H CTRP, HGBRP, GLURP, CLRP, NARP, BGRP, KRP, CARP #### [address] [address] ALT [Catalytic activity/Vol] 25 U/L Normal 10-49 [facility] ([place] Comment on above: Performed By: #### H CTRP, HGBRP, GLURP, CLRP, NARP, BGRP, KRP, CARP #### [address] [address] AST [Catalytic activity/Vol] 24 U/L Normal 8-34 [facility] ([place]) Comment on above: Performed By: #### H CTRP, HGBRP, GLURP, CLRP, NARP, BGRP, KRP, CARP #### [address] [address] Bili Total 0.50 mg/dL Normal 0.20-1.20 [facility] ([place]) Comment on above: Result Comment: Use of this assay is not recommended for patients undergoing treatment with eltrombopag due to the potential for falsely elevated results. Performed By: #### H CTRP, HGBRP, GLURP, CLRP, NARP, BGRP, KRP, CARP #### [address] [address] BUN/Creatinine Ratio 27.6 ratio High 10.0-22.0 [facility] ([place]) Comment on above: Performed By: #### H CTRP, HGBRP, GLURP, CLRP, NARP, BGRP, KRP, CARP #### [address] [address] Calcium [Mass/Vol] 9.6 mg/dL Normal 8.7-10.4 [facility] ([place]) Comment on above: Performed By: #### H CTRP, HGBRP, GLURP, CLRP, NARP, BGRP, KRP, CARP #### [address] [address] Chloride [Moles/Vol] 98 mmol/L Normal 98-110 [facility] ([place]) Comment on above: Performed By: #### H CTRP, HGBRP, GLURP, CLRP, NARP, BGRP, KRP, CARP #### [address] [address] CO2 [Moles/Vol] 31 mmol/L Normal 22-32 [facility] ([place] Comment on above: Performed By: #### H CTRP, HGBRP, GLURP, CLRP, NARP, BGRP, KRP, CARP #### [address] [address] Creatinine [Mass/Vol] 0.76 mg/dL Normal 0.50-1.20 [facility] ([place]) Comment on above: Performed By: #### H CTRP, HGBRP, GLURP, CLRP, NARP, BGRP, KRP, CARP #### [address] [address] Electrolyte Balance 5.0 mEq/L Normal 4.0-15.0 [facility] ([place]) Comment on above: Performed By: #### H CTRP, HGBRP, GLURP, CLRP, NARP, BGRP, KRP, CARP #### [address] [address] Globulin 3.5 G/dL Normal 1.5-3.8 [facility] ([place] Comment on above: Performed By: #### H CTRP, HGBRP, GLURP, CLRP, NARP, BGRP, KRP, CARP #### [address] [address] Glucose [Mass/Vol] 233 mg/dL High 82-115 [facility] ([place]) Comment on above: Performed By: #### H CTRP, HGBRP, GLURP, CLRP, NARP, BGRP, KRP, CARP #### [address] [address] Potassium [Moles/Vol] 5.0 mmol/L Normal 3.5-5.0 [facility] ([place]) Comment on above: Performed By: #### H CTRP, HGBRP, GLURP, CLRP, NARP, BGRP, KRP, CARP #### [address] [address] Sodium [Moles/Vol] 134 mmol/L Low 136-145 [facility] ([place]) Comment on above: Performed By: #### H CTRP, HGBRP, GLURP, CLRP, NARP, BGRP, KRP, CARP #### [address] [address] Total Protein 6.9 G/dL Normal 5.7-8.2 [facility] ([place]) Comment on above: Result Comment: No te - New Reference Range in effect 19 Performed By: #### H CTRP, HGBRP, GLURP, CLRP, NARP, BGRP, KRP, CARP #### [address] [address] Urea nitrogen [Mass/Vol] 21.0 mg/dL Normal 8.0-22.0 [facility] ([place] Comment on above: Performed By: #### H CTRP, HGBRP, GLURP, CLRP, NARP, BGRP, KRP, CARP #### [address] [address] FIBon 10-31-2021 Fibrinogen 504 mg/dL Normal 250-560 [facility] ([place] Comment on above: Performed By: #### H CTRP, HGBRP, GLURP, CLRP, NARP, BGRP, KRP, CARP #### [address] [address] PROon 10-31-2021 INR Coag (PPP) [Relative time] 0.9 {INR} Normal [facility] ([place]) Comment on above: Result Comment: [employer] (CHEST, 1992, [id number]) recommended therapeutic range for oral anticoagulant therapy is: LOW RISK: Prophylaxis of venous thrombosis INR: 2.0-3.0 Treatment of pulmonary embolism 2.0-3.0 Prevention of systemic embolism 2.0-3.0 HIGH RISK: Mechanical prosthetic valves 2.5-3.5 Performed By: #### H CTRP, HGBRP, GLURP, CLRP, NARP, BGRP, KRP, CARP #### [address] [address] PT Coag (PPP) [Time] 10.9 s Normal 9.0-14.9 [facility] ([place]) Comment on above: Result Comment: Effe ctive 09/30/07, Protime results may be affected by some antibiotics (i.e. Ciprofloxacin, Azithromycin, Bactrim) which may potentiate the action of oral anticoagulants, with further increases in Protime/INR. Performed By: #### H CTRP, HGBRP, GLURP, CLRP, NARP, BGRP, KRP, CARP #### [address] [address] TSHon 10-31-2021 TSH 9.830 mIU/mL High 0.550-4.780 [facility] ([place]) Comment on above: Result Comment: No te - New Reference Range in effect 19 Performed By: #### H CTRP, HGBRP, GLURP, CLRP, NARP, BGRP, KRP, CARP #### [address] [address] UAon 10-31-2021 Color (U) Straw Normal [facility] ([place] Comment on above: Performed By: #### H CTRP, HGBRP, GLURP, CLRP, NARP, BGRP, KRP, CARP #### [address] [address] Glucose (U) [Mass/Vol] 500 mg/dL Abnormal Negative [facility] ([place]) Comment on above: Performed By: #### H CTRP, HGBRP, GLURP, CLRP, NARP, BGRP, KRP, CARP #### [place] [address] Ketones Ql (U) Negative Normal Neg-Trace [facility] ([place] Comment on above: Performed By: #### H CTRP, HGBRP, GLURP, CLRP, NARP, BGRP, KRP, CARP #### [place] [address] UA Appear Clear Normal Clear [facility] ([place] Comment on above: Performed By: #### H CTRP, HGBRP, GLURP, CLRP, NARP, BGRP, KRP, CARP #### [place] [address] UA Blood Negative Normal Neg-Trace [facility] ([place] Comment on above: Performed By: #### H CTRP, HGBRP, GLURP, CLRP, NARP, BGRP, KRP, CARP #### [place] [id number] UA Leuk Est Small Abnormal Negative [facility] ([place] Comment on above: Performed By: #### H CTRP, HGBRP, GLURP, CLRP, NARP, BGRP, KRP, CARP #### [place] [id number] UA Nitrite Negative Normal Negative [facility] ([place] Comment on above: Performed By: #### H CTRP, HGBRP, GLURP, CLRP, NARP, BGRP, KRP, CARP #### [place] [address] UA pH 5.5 Normal 5.0 - 8.0 [facility] ([place] Comment on above: Performed By: #### H CTRP, HGBRP, GLURP, CLRP, NARP, BGRP, KRP, CARP #### [address] [address] UA Protein Negative Normal Negative [facility] ([place] Comment on above: Performed By: #### H CTRP, HGBRP, GLURP, CLRP, NARP, BGRP, KRP, CARP #### [address] [address] UA Spec Grav 1.010 Normal 1.006-1.029 [facility] ([place] Comment on above: Performed By: #### H CTRP, HGBRP, GLURP, CLRP, NARP, BGRP, KRP, CARP #### [place] [address] UA Specimen Type Clean Catch Normal [facility] ([place]) Comment on above: Performed By: #### H CTRP, HGBRP, GLURP, CLRP, NARP, BGRP, KRP, CARP #### [address] [address] UA Urobilinogen 0.2 E.U./dL Normal 0.2-1.0 [facility] ([place] Comment on above: Performed By: #### H CTRP, HGBRP, GLURP, CLRP, NARP, BGRP, KRP, CARP #### [place] [address] Urobilinogen (U) [Mass/Vol] Negative Normal Neg-Trace [facility] ([place] Comment on above: Performed By: #### H CTRP, HGBRP, GLURP, CLRP, NARP, BGRP, KRP, CARP #### [address] [address] UAMICon 10-31-2021 UA RBC Negative Normal 0-2 [facility] ([place] Comment on above: Performed By: #### H CTRP, HGBRP, GLURP, CLRP, NARP, BGRP, KRP, CARP #### [address] [address] UA Squam Epithelial Negative Normal 0-20 [facility] ([place]) Comment on above: Performed By: #### H CTRP, HGBRP, GLURP, CLRP, NARP, BGRP, KRP, CARP #### [address] [address] UA WBC Rare Normal 0-5 [facility] ([place] Comment on above: Performed By: #### H CTRP, HGBRP, GLURP, CLRP, NARP, BGRP, KRP, CARP #### [address] [address] .Auto Diffon 10-11-2021 Basophil, Absolute 0.1 10 3/mcL Normal 0.0-0.3 [facility] ([place]) Comment on above: Performed By: #### H CTRP, HGBRP, GLURP, CLRP, NARP, BGRP, KRP, CARP #### [address] [address] Basophils/100 WBC (Bld) 0.4 % Normal 0.0-2.5 [facility] ([place] Comment on above: Performed By: #### H CTRP, HGBRP, GLURP, CLRP, NARP, BGRP, KRP, CARP #### [address] [address] Eosinophil, Absolute 0.3 10 3/mcL Normal 0.0-0.7 [facility] ([place]) Comment on above: Performed By: #### H CTRP, HGBRP, GLURP, CLRP, NARP, BGRP, KRP, CARP #### [address] [address] Eosinophils/100 WBC (Bld) 2.2 % Normal 0.0-6.0 [facility] ([place] Comment on above: Performed By: #### H CTRP, HGBRP, GLURP, CLRP, NARP, BGRP, KRP, CARP #### [address] [address] Lymphocyte, Absolute 2.8 10 3/mcL Normal 0.9-4.3 [facility] ([place]) Comment on above: Performed By: #### H CTRP, HGBRP, GLURP, CLRP, NARP, BGRP, KRP, CARP #### [address] [address] Lymphocytes/100 WBC (Bld) 22.2 % Normal 20.0-40.0 [facility] ([place] Comment on above: Performed By: #### H CTRP, HGBRP, GLURP, CLRP, NARP, BGRP, KRP, CARP #### [address] [address] Monocyte, Absolute 1.0 10 3/mcL Normal 0.1-1.4 [facility] ([place]) Comment on above: Performed By: #### H CTRP, HGBRP, GLURP, CLRP, NARP, BGRP, KRP, CARP #### [address] [address] Monocytes/100 WBC (Bld) 7.7 % Normal 2.0-13.0 [facility] ([place] Comment on above: Performed By: #### H CTRP, HGBRP, GLURP, CLRP, NARP, BGRP, KRP, CARP #### [address] [address] Neutrophils/100 WBC (Bld) 67.5 % Normal 50.0-75.0 [facility] ([place] Comment on above: Performed By: #### H CTRP, HGBRP, GLURP, CLRP, NARP, BGRP, KRP, CARP #### [address] [address] .GFRon 10-11-2021 GFR Non- >60 Normal [facility] ([place]) Comment on above: Result Comment: GFR Population mean for , Non- Americans Ages 20-29 = 116 mL/min/1.73 sq.m. Ages 30-39 = 107 mL/min/1.73 sq.m. Ages 40-49 = 99 mL/min/1.73 sq.m. Ages 50-59 = 93 mL/min/1.73 sq.m. Ages 60-69 = 85 mL/min/1.73 sq.m. Ages 70+ = 75 mL/min/1.73 sq.m. Chronic Kidney Disease: Less than 60 mL/min/1.73 square meters End Stage Renal Disease: Less than 15 mL/min/1.73 square meters Performed By: #### H CTRP, HGBRP, GLURP, CLRP, NARP, BGRP, KRP, CARP #### [address] [address] GFR >60 Normal [facility] ([place] Comment on above: Result Comment: GFR Population mean for , Non- Americans Ages 20-29 = 116 mL/min/1.73 sq.m. Ages 30-39 = 107 mL/min/1.73 sq.m. Ages 40-49 = 99 mL/min/1.73 sq.m. Ages 50-59 = 93 mL/min/1.73 sq.m. Ages 60-69 = 85 mL/min/1.73 sq.m. Ages 70+ = 75 mL/min/1.73 sq.m. Chronic Kidney Disease: Less than 60 mL/min/1.73 square meters End Stage Renal Disease: Less than 15 mL/min/1.73 square meters Performed By: #### H CTRP, HGBRP, GLURP, CLRP, NARP, BGRP, KRP, CARP #### [address] [address] .MDWon 10-11-2021 Monocyte Distribution Width 19.02 Normal 0.00-20.00 [facility] ([place] Comment on above: Result Comment: For ED adult patients suspected of sepsis, MDW<=20.0 does not rule out sepsis or risk of sepsis Performed By: #### H CTRP, HGBRP, GLURP, CLRP, NARP, BGRP, KRP, CARP #### [address] [address] .NEUABSon 10-11-2021 Neutrophil, Absolute 8.4 10 3/mcL High 2.3-8.1 [facility] ([place]) Comment on above: Performed By: #### H CTRP, HGBRP, GLURP, CLRP, NARP, BGRP, KRP, CARP #### [address] [address] CBCon 10-11-2021 Erythrocyte distribution width (RBC) [Ratio] 13.6 % Normal 11.5-15.5 [facility] ([place] Comment on above: Performed By: #### H CTRP, HGBRP, GLURP, CLRP, NARP, BGRP, KRP, CARP #### [place] [address] Hematocrit (Bld) [Volume fraction] 41.1 % Normal 34.0-46.0 [facility] ([place] Comment on above: Performed By: #### H CTRP, HGBRP, GLURP, CLRP, NARP, BGRP, KRP, CARP #### [place] [address] Hgb 13.4 G/dL Normal 12.0-16.0 [facility] ([place] Comment on above: Performed By: #### H CTRP, HGBRP, GLURP, CLRP, NARP, BGRP, KRP, CARP #### [place] [address] MCH (RBC) [Entitic mass] 29.5 pg Normal 27.0-33.0 [facility] ([place] Comment on above: Performed By: #### H CTRP, HGBRP, GLURP, CLRP, NARP, BGRP, KRP, CARP #### [place] [id number] MCHC 32.7 G/dL Normal 32.0-36.0 [facility] ([place] Comment on above: Performed By: #### H CTRP, HGBRP, GLURP, CLRP, NARP, BGRP, KRP, CARP #### [place] [id number] MCV (RBC) [Entitic vol] 90.1 fL Normal 80.0-99.0 [facility] ([place] Comment on above: Performed By: #### H CTRP, HGBRP, GLURP, CLRP, NARP, BGRP, KRP, CARP #### [address] [address] Platelet 291 10 3/mcL Normal 150-450 [facility] ([place] Comment on above: Performed By: #### H CTRP, HGBRP, GLURP, CLRP, NARP, BGRP, KRP, CARP #### [address] [address] Platelet mean volume (Bld) [Entitic vol] 8.4 fL Normal 6.6-10.5 [facility] ([place] Comment on above: Performed By: #### H CTRP, HGBRP, GLURP, CLRP, NARP, BGRP, KRP, CARP #### [address] [address] RBC 4.56 10 6/mcL Normal 4.10-5.30 [facility] ([place] Comment on above: Performed By: #### H CTRP, HGBRP, GLURP, CLRP, NARP, BGRP, KRP, CARP #### [address] [address] WBC 12.5 10 3/mcL High 4.5-10.8 [facility] ([place] Comment on above: Performed By: #### H CTRP, HGBRP, GLURP, CLRP, NARP, BGRP, KRP, CARP #### [address] [address] CMPon 10-11-2021 Albumin Level 3.6 G/dL Normal 3.2-4.8 [facility] ([place] Comment on above: Performed By: #### H CTRP, HGBRP, GLURP, CLRP, NARP, BGRP, KRP, CARP #### [address] [address] Albumin/Globulin [Mass ratio] 1.0 {ratio} Normal 0.9-1.6 [facility] ([place] Comment on above: Performed By: #### H CTRP, HGBRP, GLURP, CLRP, NARP, BGRP, KRP, CARP #### [address] [address] ALP [Catalytic activity/Vol] 111 U/L Normal 38-126 [facility] ([place] Comment on above: Performed By: #### H CTRP, HGBRP, GLURP, CLRP, NARP, BGRP, KRP, CARP #### [address] [address] ALT [Catalytic activity/Vol] 22 U/L Normal 10-49 [facility] ([place] Comment on above: Performed By: #### H CTRP, HGBRP, GLURP, CLRP, NARP, BGRP, KRP, CARP #### [address] [address] AST [Catalytic activity/Vol] 28 U/L Normal 8-34 [facility] ([place] Comment on above: Performed By: #### H CTRP, HGBRP, GLURP, CLRP, NARP, BGRP, KRP, CARP #### [address] [address] Bili Total 0.40 mg/dL Normal 0.20-1.20 [facility] ([place] Comment on above: Result Comment: Use of this assay is not recommended for patients undergoing treatment with eltrombopag due to the potential for falsely elevated results. Performed By: #### H CTRP, HGBRP, GLURP, CLRP, NARP, BGRP, KRP, CARP #### [place] [id number] BUN/Creatinine Ratio 22.1 ratio High 10.0-22.0 [facility] ([place] Comment on above: Performed By: #### H CTRP, HGBRP, GLURP, CLRP, NARP, BGRP, KRP, CARP #### [place] [id number] Calcium [Mass/Vol] 9.5 mg/dL Normal 8.7-10.4 [facility] ([place] Comment on above: Performed By: #### H CTRP, HGBRP, GLURP, CLRP, NARP, BGRP, KRP, CARP #### [address] [address] Chloride [Moles/Vol] 104 mmol/L Normal 98-110 [facility] ([place] Comment on above: Performed By: #### H CTRP, HGBRP, GLURP, CLRP, NARP, BGRP, KRP, CARP #### [address] [address] CO2 [Moles/Vol] 28 mmol/L Normal 22-32 [facility] ([place] Comment on above: Performed By: #### H CTRP, HGBRP, GLURP, CLRP, NARP, BGRP, KRP, CARP #### [place] [address] Creatinine [Mass/Vol] 0.68 mg/dL Normal 0.50-1.20 [facility] ([place] Comment on above: Performed By: #### H CTRP, HGBRP, GLURP, CLRP, NARP, BGRP, KRP, CARP #### [address] [address] Electrolyte Balance 4.0 mEq/L Normal 4.0-15.0 [facility] ([place] Comment on above: Performed By: #### H CTRP, HGBRP, GLURP, CLRP, NARP, BGRP, KRP, CARP #### [place] [id number] Globulin 3.6 G/dL Normal 1.5-3.8 [facility] ([place] Comment on above: Performed By: #### H CTRP, HGBRP, GLURP, CLRP, NARP, BGRP, KRP, CARP #### [place] [id number] Glucose [Mass/Vol] 178 mg/dL High 82-115 [facility] ([place]) Comment on above: Performed By: #### H CTRP, HGBRP, GLURP, CLRP, NARP, BGRP, KRP, CARP #### [place] [address] [address] Potassium [Moles/Vol] 4.0 mmol/L Normal 3.5-5.0 [facility] ([place] Comment on above: Performed By: #### H CTRP, HGBRP, GLURP, CLRP, NARP, BGRP, KRP, CARP #### [address] [address] Sodium [Moles/Vol] 136 mmol/L Normal 136-145 [facility] ([place] Comment on above: Performed By: #### H CTRP, HGBRP, GLURP, CLRP, NARP, BGRP, KRP, CARP #### [address] [address] Total Protein 7.2 G/dL Normal 5.7-8.2 [facility] ([place] Comment on above: Result Comment: No te - New Reference Range in effect 19 Performed By: #### H CTRP, HGBRP, GLURP, CLRP, NARP, BGRP, KRP, CARP #### [address] [address] Urea nitrogen [Mass/Vol] 15.0 mg/dL Normal 8.0-22.0 [facility] ([place] Comment on above: Performed By: #### H CTRP, HGBRP, GLURP, CLRP, NARP, BGRP, KRP, CARP #### [address] [address] PBNPon 10-11-2021 Natriuretic peptide B (Bld) [Mass/Vol] 123 pg/mL Normal 0-900 [facility] ([place] Comment on above: Result Comment: NT-p roBNP results of less than 300 pg/mL effectively rules out acute congestive heart failure with 99% negative predictive value. Performed By: #### H CTRP, HGBRP, GLURP, CLRP, NARP, BGRP, KRP, CARP #### [address] [address] TROPHSon 10-11-2021 Troponin I High Sensitivity 7.31 ng/L Normal 0.00-34.00 [facility] ([place] Comment on above: Result Comment: If t he High Sensitive Troponin result is below the 99th percentile value (<45 ng/L) at the first blood draw, at least two additional blood samples should be drawn before results are interpreted as negative for AMI. Performed By: #### H CTRP, HGBRP, GLURP, CLRP, NARP, BGRP, KRP, CARP #### [place] [address] XR CHEST 1 VIEWon 10-11-2021 XR CHEST 1 VIEW ORIGINAL EXAMINATION: ONE XRAY VIEW OF THE CHEST 10/11/2021 5:10 am COMPARISON: Chest x-ray 12/20/2016 HISTORY: ORDERING SYSTEM PROVIDED HISTORY: Reason for Exam: chest pain FINDINGS: The cardiomediastinal silhouette is within normal limits. Low lung volumes. No focal consolidation, vascular congestion, large pleural effusion or pneumothorax. There is an oblique lucency projecting over the left lung base, most compatible with a skin fold. Osseous structures appear intact. IMPRESSION: No acute process. I have personally reviewed the images of this examination, and agree with the resident's findings and interpretation. Interpreted by: Tal Dooley MD Preliminary Report By: Lulú Velasquez Electronically signed By Tal Dooley MD Dictated Date: 10/11/2021 5:11:57 AM Prelim Date: 10/11/2021 5:13:39 AM Sign Date: 10/11/2021 5:14:20 AM Ordering Provider: ANTWAN Mercado [facility] ([place]) Absolute lymphocyte counton 09-08-2021 Lymphocytes Auto (Unsp spec) [#/Vol] 2.25 10*3/uL 0.83-4.[address] [facility] Work Phone: Basophil percentageon 2021 Basophils/100 WBC (Bld) 0.6 % 0-1 [facility] Work Phone: Bilirubin [Mass/Vol] 0.50 mg/dL 0.20-1.00 [facility] Work Phone: Comment on above: For patients on eltr ombopag therapy, use of Dimension Bledsoe TBIL is not recommended. Chloride [Moles/Vol] 102 mmol/L 98-107 [facility] Work Phone: Eosinophils/100 WBC (Bld) 2.6 % 0-[address] [facility] Work Phone: Glucose [Mass/Vol] 287 mg/dL 74-106 [facility] Work Phone: Comment on above: Glucose result great er than or equal to 200 mg/dLsuggests DIABETES MELLITUS per A.D.A. criteria. Neutrophils (Bld) [#/Vol] 10.8 10*3/uL 2.0-7.[address] [facility] Work Phone: Neutrophils/100 WBC (Bld) 74.7 % 47-[address] [facility] Work Phone: Potassium [Moles/Vol] 4.2 mmol/L 3.5-5.[address] [facility] Work Phone: Protein [Mass/Vol] 7.2 g/dL 6.4-8.2 [facility] Work Phone: Sodium [Moles/Vol] 137 mmol/L 136-145 [facility] Work Phone: WBC (Bld) [#/Vol] 14.4 10*3/uL 4.4-11.0 [facility] Work Phone: Blood erythrocytes count (nu mber/volume)on 09-08-2021 RBC (Bld) [#/Vol] 4.53 10*6/uL 4.2-5.4 [facility] Work Phone: Blood hemoglobin measurement (mass/volume)on 09-08-2021 Hemoglobin (Bld) [Mass/Vol] 13.5 g/dL 12.0-15.[address] [facility] Work Phone: Blood lymphocytes/100 leukoc yteson 09-08-2021 Lymphocytes/100 WBC (Bld) 15.6 % 19-[address] [facility] Work Phone: Blood monocytes/100 leukocyt eson 09-08-2021 Monocytes/100 WBC (Bld) 5.8 % 0-10 [facility] Work Phone: [phone] Blood platelet mean volumeon 09-08-2021 Platelet mean volume (Bld) [Entitic vol] 10.7 fL 6.2-12.[address] [facility] Work Phone: [phone] Determination of erythrocyte mean corpuscular volume (MCV)on 09-08-2021 MCV (RBC) [Entitic vol] 92.5 fL 81-99 [facility] Work Phone: [phone] Hematocrit Auto (Bld) [Volum e fraction]on 09-08-2021 Hematocrit (Bld) [Volume fraction] 41.9 % 37-[address] [facility] Work Phone: [phone] Laboratory - Chemistry and C hemistry - challengeon 09-08-2021 ALP [Catalytic activity/Vol] 96 U/L 45-[address] [facility] Work Phone: [phone] ALT [Catalytic activity/Vol] 28 U/L 13-[address] [facility] Work Phone: [phone] CO2 [Moles/Vol] 28.0 mmol/L 21.0-32.[address] [facility] Work Phone: [phone] Globulin (S) [Mass/Vol] 3.9 g/dL 2.2-4.2 [facility] Work Phone: [phone] Urea nitrogen/Creatinine [Mass ratio] 18.7 mg/mg 10-[address] [facility] Work Phone: [phone] Laboratory - Hematology and Cell countson 09-08-2021 Erythrocyte distribution width (RBC) [Entitic vol] 43.7 fL 35.1-43.[address] [facility] Work Phone: [phone] Erythrocyte distribution width (RBC) [Ratio] 12.9 % 11.6-14.[address] [facility] Work Phone: [phone] Immature granulocytes/100 WBC (Bld) 0.700 % 0.0-0.[address] [facility] Work Phone: [phone] Comment on above: IG% - Immature Granu locytes (promyelocytes, myelocytes and metamyelocytes) > 1% indicates that a LEFT SHIFT is Present. MCH (RBC) [Entitic mass] 29.8 pg 27.0-32.[address] [facility] Work Phone: [phone] Nucleated RBC/100 WBC (Bld) [Ratio] 0 % 0-[address] [facility] Work Phone: [phone] MCHC Auto (RBC) [Mass/Vol]on 09-08-2021 MCHC (RBC) [Mass/Vol] 32.2 g/dL 32-[address] [facility] Work Phone: [phone] Panel Informationon 09-08 Estimated Creatinine Clearance Calc 43.74 ml/min [facility] Work Phone: [phone] Estimated GFR (MDRD) Amer 74 mL/min >[address] [facility] Work Phone: [phone] Comment on above: GFR Calc Estimated GFR (MDRD) Non-Af Amer 61 mL/min >[address] [facility] Work Phone: [phone] Comment on above: Non- GFR Calc Platelets bldon 09-08-2021 Platelets (Bld) [#/Vol] 267 10*3/uL 150-[address] [facility] Work Phone: [phone] Serum or plasma albumin betsy urement (mass/volume)on 09-08-2021 Albumin [Mass/Vol] 3.3 g/dL 3.2-5.0 [facility] Work Phone: [phone] Serum or plasma albumin/glob ulin mass ratioon 09-08-2021 Albumin/Globulin [Mass ratio] 0.8 {ratio} 0.9-2.[address] [facility] Work Phone: [phone] Serum or plasma calcium betsy urement (mass/volume)on 09-08-2021 Calcium [Mass/Vol] 9.1 mg/dL 8.5-10.1 [facility] Work Phone: [phone] Serum or plasma creatinine m easurement (mass/volume)on 09-08-2021 Creatinine [Mass/Vol] 0.96 mg/dL 0.55-1.[address] [facility] Work Phone: Comment on above: The validity of the calculated GFR & GFRAA in patients over 70 years has not been determined. Clinical correlation is essential. Serum or plasma urea nitroge n measurement (mass/volume)on 09-08-2021 Urea nitrogen [Mass/Vol] 18 mg/dL 7-[address] [facility] Work Phone: Thin prep Papanicolaou smear with manual screeningon 09-08-2021 Thin prep Papanicolaou smear with manual screening 20 U/L 15-[address] [facility] Work Phone: [phone] Thin prep Papanicolaou smear with manual screening 7 5-[address] [facility] Work Phone: [phone] Glucose Glucometer (BldC) [M ass/Vol]on 09-05-2021 Glucose [Mass/Vol] 201 mg/dL 74-106 [facility] Work Phone: Comment on above: MANAGEMENT OF PATIEN T CARE PER NURSING PROTOCOL Basophil percentageon 2021 Chloride [Moles/Vol] 103 mmol/L 98-107 [facility] Work Phone: [phone] Glucose [Mass/Vol] 160 mg/dL 74-106 [facility] Work Phone: Comment on above: Fasting Glucose resu lt greater than or equal to 126 mg/dL suggests DIABETES MELLITUS per A.D.A. criteria. Potassium [Moles/Vol] 4.0 mmol/L 3.5-5.[address] [facility] Work Phone: [phone] Sodium [Moles/Vol] 136 mmol/L 136-145 [facility] Work Phone: [phone] WBC (Bld) [#/Vol] 12.7 10*3/uL 4.4-11.0 [facility] Work Phone: [phone] Blood erythrocytes count (nu mber/volume)on 08-28-2021 RBC (Bld) [#/Vol] 4.62 10*6/uL 4.2-5.4 [facility] Work Phone: [phone] Blood hemoglobin measurement (mass/volume)on 08-28-2021 Hemoglobin (Bld) [Mass/Vol] 13.7 g/dL 12.0-15.[address] [facility] Work Phone: Blood platelet mean volumeon 08-28-2021 Platelet mean volume (Bld) [Entitic vol] 10.9 fL 6.2-12.[address] [facility] Work Phone: Determination of erythrocyte mean corpuscular volume (MCV)on 08-28-2021 MCV (RBC) [Entitic vol] 92.0 fL 81-99 [facility] Work Phone: Hematocrit Auto (Bld) [Volum e fraction]on 08-28-2021 Hematocrit (Bld) [Volume fraction] 42.5 % 37-[address] [facility] Work Phone: INR in Blood by Coagulation assayon 08-28-2021 INR Coag (Bld) [Relative time] 1.0 {INR} [facility] Work Phone: Laboratory - Chemistry and C hemistry - challengeon 08-28-2021 CO2 [Moles/Vol] 28.0 mmol/L 21.0-32.[address] [facility] Work Phone: Urea nitrogen/Creatinine [Mass ratio] 23.6 mg/mg 10-[address] [facility] Work Phone: Laboratory - Coagulationon 0 08-28-2021 aPTT Coag (Bld) [Time] 25.4 s 24.1-36.2 [facility] Work Phone: PT Coag (PPP) [Time] 13.0 s 11.7-14.9 [facility] Work Phone: Laboratory - Hematology and Cell countson 08-28-2021 Erythrocyte distribution width (RBC) [Entitic vol] 43.4 fL 35.1-43.[address] [facility] Work Phone: Erythrocyte distribution width (RBC) [Ratio] 12.9 % 11.6-14.[address] [facility] Work Phone: MCH (RBC) [Entitic mass] 29.7 pg 27.0-32.[address] [facility] Work Phone: MCHC Auto (RBC) [Mass/Vol]on 08-28-2021 MCHC (RBC) [Mass/Vol] 32.2 g/dL 32-[address] [facility] Work Phone: No Panel Informationon 08-28 Estimated GFR (MDRD) Amer 91 mL/min >[address] [facility] Work Phone: Comment on above: GFR Calc Estimated GFR (MDRD) Non-Af Amer 75 mL/min >[address] [facility] Work Phone: Comment on above: Non- GFR Calc Platelets bldon 08-28-2021 Platelets (Bld) [#/Vol] 299 10*3/uL 150-[address] [facility] Work Phone: Serum or plasma calcium betsy urement (mass/volume)on 08-28-2021 Calcium [Mass/Vol] 9.1 mg/dL 8.5-10.1 [facility] Work Phone: Serum or plasma creatinine m easurement (mass/volume)on 08-28-2021 Creatinine [Mass/Vol] 0.80 mg/dL 0.55-1.[address] [facility] Work Phone: Comment on above: The validity of the calculated GFR & GFRAA in patients over 70 years has not been determined. Clinical correlation is essential. Serum or plasma urea nitroge n measurement (mass/volume)on 08-28-2021 Urea nitrogen [Mass/Vol] 19 mg/dL 7-[address] [facility] Work Phone: Thin prep Papanicolaou smear with manual screeningon 08-28-2021 Thin prep Papanicolaou smear with manual screening 5 5-[address] [facility] Work Phone: Absolute lymphocyte counton 06-07-2021 Lymphocytes Auto (Unsp spec) [#/Vol] 2.40 10*3/uL 0.83-4.[address] [facility] Work Phone: Basophil percentageon 03-23- 2022 Basophil percentage 0 SEEN /hpf 0-5 [facility] Work Phone: Basophils/100 WBC (Bld) 0.8 % 0-1 [facility] Work Phone: Bilirubin [Mass/Vol] 0.40 mg/dL 0.20-1.00 [facility] Work Phone: Comment on above: For patients on eltr ombopag therapy, use of Dimension Bledsoe TBIL is not recommended. Chloride [Moles/Vol] 101 mmol/L 98-107 [facility] Work Phone: Cholesterol [Mass/Vol] 160 mg/dL <200 [facility] Work Phone: Comment on above: <200 mg/dL Desirable 200-240 mg/dL Borderline >240 mg/dL High Risk Eosinophils/100 WBC (Bld) 2.4 % 0-[address] [facility] Work Phone: Glucose [Mass/Vol] 232 mg/dL 74-106 [facility] Work Phone: Comment on above: Glucose result great er than or equal to 200 mg/dLsuggests DIABETES MELLITUS per A.D.A. criteria. Neutrophils (Bld) [#/Vol] 8.1 10*3/uL 2.0-7.[address] [facility] Work Phone: Neutrophils/100 WBC (Bld) 68.3 % 47-[address] [facility] Work Phone: Potassium [Moles/Vol] 4.3 mmol/L 3.5-5.[address] [facility] Work Phone: Protein [Mass/Vol] 7.8 g/dL 6.4-8.2 [facility] Work Phone: Sodium [Moles/Vol] 134 mmol/L 136-145 [facility] Work Phone: Triglyceride [Mass/Vol] 186 mg/dL <199 [facility] Work Phone: [phone] Comment on above: The drugs N-Acetylcy steine and Metamizole may falsely depress this assay.Serum Triglycerides Reference Interval Normal <150 mg/dL Borderline high 150 - 199 mg/dL High 200 - 499 mg/dL Very High > or = 500 mg/dL WBC (Bld) [#/Vol] 11.9 10*3/uL 4.4-11.0 [facility] Work Phone: Bilirubin Test strip Ql (U)o n 06-07-2021 Bilirubin Ql (U) Negative Negative [facility] Work Phone: Blood erythrocytes count (nu mber/volume)on 06-07-2021 RBC (Bld) [#/Vol] 4.69 10*6/uL 4.2-5.4 [facility] Work Phone: [phone] Blood hemoglobin measurement (mass/volume)on 06-07-2021 Hemoglobin (Bld) [Mass/Vol] 13.9 g/dL 12.0-15.[address] [facility] Work Phone: [phone] Blood lymphocytes/100 leukoc yteson 06-07-2021 Lymphocytes/100 WBC (Bld) 20.2 % 19-[address] [facility] Work Phone: [phone] Blood monocytes/100 leukocyt eson 06-07-2021 Monocytes/100 WBC (Bld) 7.0 % 0-10 [facility] Work Phone: [phone] Blood platelet mean volumeon 06-07-2021 Platelet mean volume (Bld) [Entitic vol] 11.0 fL 6.2-12.[address] [facility] Work Phone: [phone] Determination of erythrocyte mean corpuscular volume (MCV)on 06-07-2021 MCV (RBC) [Entitic vol] 93.4 fL 81-99 [facility] Work Phone: [phone] Hematocrit Auto (Bld) [Volum e fraction]on 06-07-2021 Hematocrit (Bld) [Volume fraction] 43.8 % 37-[address] [facility] Work Phone: [phone] Ketones Test strip Ql (U)on 06-07-2021 Ketones Ql (U) Negative Negative [facility] Work Phone: Laboratory - Chemistry and C hemistry - challengeon 06-07-2021 ALP [Catalytic activity/Vol] 122 U/L 45-[address] [facility] Work Phone: [phone] ALT [Catalytic activity/Vol] 33 U/L 13-[address] [facility] Work Phone: [phone] CO2 [Moles/Vol] 27.0 mmol/L 21.0-32.[address] [facility] Work Phone: [phone] Free T4 [Mass/Vol] 0.79 ng/dL 0.76-1.46 [facility] Work Phone: [phone] Globulin (S) [Mass/Vol] 4.2 g/dL 2.2-4.2 [facility] Work Phone: [phone] Magnesium [Mass/Vol] 2.1 mg/dL 1.6-2.6 [facility] Work Phone: [phone] Urea nitrogen/Creatinine [Mass ratio] 21.3 mg/mg 10-[address] [facility] Work Phone: [phone] Laboratory - Hematology and Cell countson 06-07-2021 Erythrocyte distribution width (RBC) [Entitic vol] 45.1 fL 35.1-43.[address] [facility] Work Phone: [phone] Erythrocyte distribution width (RBC) [Ratio] 13.2 % 11.6-14.[address] [facility] Work Phone: [phone] Immature granulocytes/100 WBC (Bld) 1.300 % 0.0-0.[address] [facility] Work Phone: [phone] Comment on above: IG% - Immature Granu locytes (promyelocytes, myelocytes and metamyelocytes) > 1% indicates that a LEFT SHIFT is Present. MCH (RBC) [Entitic mass] 29.6 pg 27.0-32.[address] [facility] Work Phone: [phone] Nucleated RBC/100 WBC (Bld) [Ratio] 0 % 0-[address] [facility] Work Phone: [phone] HbA1c (Bld) [Mass fraction] 8.4 % 4.2-6.[address] [facility] Work Phone: MCHC Auto (RBC) [Mass/Vol]on 06-07-2021 MCHC (RBC) [Mass/Vol] 31.7 g/dL 32-[address] [facility] Work Phone: Mucus LM Ql (Urine sed)on Mucus Ql (Urine sed) 0 SEEN /hpf [facility] Work Phone: Nitrite Test strip Ql (U)on 06-07-2021 Nitrite Ql (U) Negative Negative [facility] Work Phone: No Panel Informationon 06-07 Estimated GFR (MDRD) Amer 76 mL/min >[address] [facility] Work Phone: Comment on above: GFR Calc Estimated GFR (MDRD) Non-Af Amer 63 mL/min >[address] [facility] Work Phone: Comment on above: Non- GFR Calc Free Triiodothyronine (T3) pg/dL 2.8 pg/mL 2.18-3.[address] [facility] Work Phone: Thyroid Stimulating Hormone (TSH) 10.30 uIU/mL 0.358-3.[address] [facility] Work Phone: Vitamin D 25-Hydroxy 18.1 ng/mL [facility] Work Phone: Comment on above: Vitamin D 25(OH) Sta tus Range Deficiency <20 ng/mL (50nmol/L) Insufficiency 20 - 30 ng/mL (50 - 75 nmol/L) Sufficiency 30 - 100 ng/mL (75 - 250 nmol/L) Toxicity >100 ng/mL (>250 nmol/L) Platelets bldon 06-07-2021 Platelets (Bld) [#/Vol] 332 10*3/uL 150-[address] [facility] Work Phone: Protein Test strip Ql (U)on 06-07-2021 Protein Ql (U) Negative Negative [facility] Work Phone: [phone] Serum or plasma albumin betsy urement (mass/volume)on 06-07-2021 Albumin [Mass/Vol] 3.6 g/dL 3.2-5.0 [facility] Work Phone: Serum or plasma albumin/glob ulin mass ratioon 06-07-2021 Albumin/Globulin [Mass ratio] 0.9 {ratio} 0.9-2.[address] [facility] Work Phone: Serum or plasma calcium betsy urement (mass/volume)on 06-07-2021 Calcium [Mass/Vol] 9.8 mg/dL 8.5-10.1 [facility] Work Phone: Serum or plasma cholesterol in HDL measurement (mass/volume)on 06-07-2021 Cholesterol in HDL [Mass/Vol] 51 mg/dL >[address] [facility] Work Phone: Comment on above: The drugs N-Acetylcy steine and Metamizole may falsely depress this assay. Reference Range HDL <40 mg/dL Low HDL Cholesterol HDL >or= 60 mg/dL High HDL Cholesterol Serum or plasma cholesterol in VLDL measurement (mass/volume)on 06-07-2021 Cholesterol in VLDL [Mass/Vol] 37 mg/dL 5-[address] [facility] Work Phone: [phone] Serum or plasma creatinine m easurement (mass/volume)on 06-07-2021 Creatinine [Mass/Vol] 0.94 mg/dL 0.55-1.[address] [facility] Work Phone: Comment on above: The validity of the calculated GFR & GFRAA in patients over 70 years has not been determined. Clinical correlation is essential. Serum or plasma low density lipoprotein (LDL) cholesterol measurement (mass/volume)on 06-07-2021 Cholesterol in LDL [Mass/Vol] 72 mg/dL 0-[address] [facility] Work Phone: [phone] Serum or plasma urea nitroge n measurement (mass/volume)on 06-07-2021 Urea nitrogen [Mass/Vol] 20 mg/dL 7-[address] [facility] Work Phone: [phone] Squamous epithelial cells de tection in urine sediment by light microscopyon 06-07-2021 Epithelial cells.squamous LM Ql (Urine sed) 0 SEEN /hpf 5-[address] [facility] Work Phone: Thin prep Papanicolaou smear with manual screeningon 06-07-2021 Thin prep Papanicolaou smear with manual screening 23 U/L 15-[address] [facility] Work Phone: [phone] Thin prep Papanicolaou smear with manual screening 6 5-[address] [facility] Work Phone: Urine blood detectionon - RBC Ql (U) Negative Negative [facility] Work Phone: [phone] RBC Ql (U) 0 SEEN /hpf 0-[address] [facility] Work Phone: [phone] Urine clarityon 06-07-2021 Clarity (U) Sl. Cloudy Clear [facility] Work Phone: Urine color determinationon 06-07-2021 Color (U) Yellow Yellow [facility] Work Phone: Urine creatinine measurement (mass/volume)on 06-07-2021 Creatinine (U) [Mass/Vol] 23.70 mg/dL NO RANGE EST. [facility] Work Phone: Urine glucose detectionon Glucose Ql (U) 250 mg/dl Normal [facility] Work Phone: Urine leukocyte esterase det ection by dipstickon 06-07-2021 Leukocyte esterase Test strip Ql (U) Negative Negative [facility] Work Phone: Urine pHon 06-07-2021 pH (U) 6.5 [pH] 5.0 - 8.[address] [facility] Work Phone: Urine protein measurement (m ass/volume)on 06-07-2021 Protein (U) [Mass/Vol] 6.9 mg/dL 0.0-11.8 [facility] Work Phone: Urine protein/creatinine mas s ratioon 06-07-2021 Protein/Creatinine (U) [Mass ratio] 291 mg/g CRE 0-[address] [facility] Work Phone: Urine sediment bacteria coun t by microscopy (number/high power field)on 06-07-2021 Bacteria LM.HPF (Urine sed) [#/Area] 0 /[HPF] None Seen [facility] Work Phone: Urine specific gravity measu rementon 06-07-2021 Specific gravity (U) [Rel density] 1.010 1.002-1.[address] [facility] Work Phone: Urobilinogen Auto test strip Ql (U)on 06-07-2021 Urobilinogen Ql (U) Normal mg/dl Normal [facility] Work Phone: Absolute lymphocyte counton 04-25-2021 Lymphocytes Auto (Unsp spec) [#/Vol] 2.40 10*3/uL 0.83-4.[address] [facility] Work Phone: Basophil percentageon 2021 Basophils/100 WBC (Bld) 0.7 % 0-1 [facility] Work Phone: Chloride [Moles/Vol] 101 mmol/L 98-107 [facility] Work Phone: Eosinophils/100 WBC (Bld) 1.8 % 0-[address] [facility] Work Phone: Glucose [Mass/Vol] 284 mg/dL 74-106 [facility] Work Phone: Comment on above: Glucose result great er than or equal to 200 mg/dLsuggests DIABETES MELLITUS per A.D.A. criteria. Neutrophils (Bld) [#/Vol] 9.9 10*3/uL 2.0-7.[address] [facility] Work Phone: Neutrophils/100 WBC (Bld) 72.3 % 47-[address] [facility] Work Phone: Potassium [Moles/Vol] 4.4 mmol/L 3.5-5.[address] [facility] Work Phone: Sodium [Moles/Vol] 136 mmol/L 136-145 [facility] Work Phone: WBC (Bld) [#/Vol] 13.6 10*3/uL 4.4-11.0 [facility] Work Phone: Blood erythrocytes count (nu mber/volume)on 04-25-2021 RBC (Bld) [#/Vol] 4.88 10*6/uL 4.2-5.4 [facility] Work Phone: Blood hemoglobin measurement (mass/volume)on 04-25-2021 Hemoglobin (Bld) [Mass/Vol] 14.9 g/dL 12.0-15.[address] [facility] Work Phone: Blood lymphocytes/100 leukoc yteson 04-25-2021 Lymphocytes/100 WBC (Bld) 17.6 % 19-[address] [facility] Work Phone: Blood monocytes/100 leukocyt eson 04-25-2021 Monocytes/100 WBC (Bld) 6.2 % 0-10 [facility] Work Phone: Blood platelet mean volumeon 04-25-2021 Platelet mean volume (Bld) [Entitic vol] 10.8 fL 6.2-12.[address] [facility] Work Phone: Determination of erythrocyte mean corpuscular volume (MCV)on 04-25-2021 MCV (RBC) [Entitic vol] 93.0 fL 81-99 [facility] Work Phone: [phone] Hematocrit Auto (Bld) [Volum e fraction]on 04-25-2021 Hematocrit (Bld) [Volume fraction] 45.4 % 37-[address] [facility] Work Phone: Laboratory - Chemistry and C hemistry - challengeon 04-25-2021 CO2 [Moles/Vol] 29.0 mmol/L 21.0-32.[address] [facility] Work Phone: [phone] Natriuretic peptide B (Bld) [Mass/Vol] 53.5 pg/mL 0-[address] [facility] Work Phone: [phone] Urea nitrogen/Creatinine [Mass ratio] 18.0 mg/mg 10-[address] [facility] Work Phone: Laboratory - Hematology and Cell countson 04-25-2021 Erythrocyte distribution width (RBC) [Entitic vol] 44.8 fL 35.1-43.[address] [facility] Work Phone: [phone] Erythrocyte distribution width (RBC) [Ratio] 13.1 % 11.6-14.[address] [facility] Work Phone: [phone] Immature granulocytes/100 WBC (Bld) 1.400 % 0.0-0.[address] [facility] Work Phone: [phone] Comment on above: IG% - Immature Granu locytes (promyelocytes, myelocytes and metamyelocytes) > 1% indicates that a LEFT SHIFT is Present. MCH (RBC) [Entitic mass] 30.5 pg 27.0-32.[address] [facility] Work Phone: [phone] Nucleated RBC/100 WBC (Bld) [Ratio] 0 % 0-[address] [facility] Work Phone: [phone] MCHC Auto (RBC) [Mass/Vol]on 04-25-2021 MCHC (RBC) [Mass/Vol] 32.8 g/dL 32-[address] [facility] Work Phone: [phone] Panel Informationon 04-25 Estimated Creatinine Clearance Calc 44.67 ml/min [facility] Work Phone: [phone] Estimated GFR (MDRD) Amer 76 mL/min >[address] [facility] Work Phone: [phone] Comment on above: GFR Calc Estimated GFR (MDRD) Non-Af Amer 63 mL/min >[address] [facility] Work Phone: [phone] Comment on above: Non- GFR Calc Troponin I High Sensitivity 12 pg/mL 3.0-54.[address] [facility] Work Phone: [phone] Comment on above: Please Note: [place] t Units and Gender Specific Reference Ranges. For more information see Policy Stat Procedure Bledsoe High Sensitivity Troponin (TNIH) and attachments. Platelets bldon 04-25-2021 Platelets (Bld) [#/Vol] 336 10*3/uL 150-[address] [facility] Work Phone: Serum or plasma calcium betsy urement (mass/volume)on 04-25-2021 Calcium [Mass/Vol] 9.0 mg/dL 8.5-10.1 [facility] Work Phone: Serum or plasma creatinine m easurement (mass/volume)on 04-25-2021 Creatinine [Mass/Vol] 0.94 mg/dL 0.55-1.[address] [facility] Work Phone: Comment on above: The validity of the calculated GFR & GFRAA in patients over 70 years has not been determined. Clinical correlation is essential. Serum or plasma urea nitroge n measurement (mass/volume)on 04-25-2021 Urea nitrogen [Mass/Vol] 17 mg/dL 7-[address] [facility] Work Phone: Thin prep Papanicolaou smear with manual screeningon 04-25-2021 Thin prep Papanicolaou smear with manual screening 6 5-[address] [facility] Work Phone: [facility] Note on 09-15-2016 [facility] Note Normal [facility] Patient Summary Documentson 09-15-2016 Patient Summary Documents Normal [facility] Vital Signs Date Time Vital Sign Value Performing Clinician Facility 07-02-2024 13:00-0400 Body height 157.[address] Harish Noel MD Work Phone: [facility] 07-02-2024 13:00-0400 Body mass index (BMI) [Ratio] 41.7 kg/m2 Dr. Harish Noel MD Work Phone: [facility] 07-02-2024 13:00-0400 Body temperature 98.9 [degF] Dr. Harish Noel MD Work Phone: [facility] 07-02-2024 13:00-0400 Body weight 103.[address] Harish Noel MD Work Phone: [facility] 07-02-2024 13:00-0400 Diastolic blood pressure 70 mm[Hg] Dr. Harish Noel MD Work Phone: [facility] 07-02-2024 13:00-0400 Heart rate 66 /min Dr. Harish Noel MD Work Phone: [facility] 07-02-2024 13:00-0400 Respiratory rate 16 /min Dr. Harish Noel MD Work Phone: [facility] 07-02-2024 13:00-0400 SaO2% (BldA) [Mass fraction] 90 % Dr. Harish Noel MD Work Phone: [facility] 07-02-2024 13:00-0400 Systolic blood pressure 150 mm[Hg] Dr. Harish Noel MD Work Phone: [facility] 04-30-2024 14:50-0500 Body temperature 97.8 [degF] Dr. Harish Noel MD Work Phone: [facility] 04-30-2024 14:50-0500 Diastolic blood pressure 72 mm[Hg] Dr. Harish Noel MD Work Phone: [facility] 04-30-2024 14:50-0500 Heart rate 83 /min Dr. Harish Noel MD Work Phone: [facility] 04-30-2024 14:50-0500 Respiratory rate 16 /min Dr. Harish Noel MD Work Phone: [facility] 04-30-2024 14:50-0500 SaO2% (BldA) [Mass fraction] 96 % Dr. Harish Noel MD Work Phone: [facility] 04-30-2024 14:50-0500 Systolic blood pressure 138 mm[Hg] Dr. Harish Noel MD Work Phone: [facility] 04-30-2024 13:49-0500 Body weight 100.[address] Harish Noel MD Work Phone: [facility] 04-30-2024 01:16-0500 Body mass index (BMI) [Ratio] 40.6 kg/m2 Dr. Harish Noel MD Work Phone: [facility] 07-28-2022 12:49-0400 Body height 157.[address] Harish Noel Work Phone: [facility] 07-28-2022 12:49-0400 Body mass index (BMI) [Ratio] 40.6 kg/m2 Dr. Harish Noel Work Phone: [facility] 07-28-2022 12:49-0400 Body temperature 97.2 [degF] Dr. Harish Noel Work Phone: [facility] 07-28-2022 12:49-0400 Body weight 100.[address] Harish Noel Work Phone: [facility] 07-28-2022 12:49-0400 Diastolic blood pressure 69 mm[Hg] Dr. Harish Noel Work Phone: [facility] 07-28-2022 12:49-0400 Heart rate 78 /min Dr. Harish Noel Work Phone: [facility] 07-28-2022 12:49-0400 Respiratory rate 22 /min Dr. Harish Noel Work Phone: [facility] 07-28-2022 12:49-0400 SaO2% (BldA) [Mass fraction] 97 % Dr. Harish Noel Work Phone: [facility] 07-28-2022 12:49-0400 Systolic blood pressure 148 mm[Hg] Dr. Harish Noel Work Phone: [facility] 05-16-2022 13:10-0500 Body temperature 97.3 [degF] Dr. Harish Noel Work Phone: [facility] 05-16-2022 13:10-0500 Body weight 101.[address] Harish Noel Work Phone: [facility] 05-16-2022 13:10-0500 Diastolic blood pressure 72 mm[Hg] Dr. Harish Noel Work Phone: [facility] 05-16-2022 13:10-0500 Heart rate 88 /min Dr. Harish Noel Work Phone: [facility] 05-16-2022 13:10-0500 Respiratory rate 16 /min Dr. Harish Noel Work Phone: [facility] 05-16-2022 13:10-0500 SaO2% (BldA) [Mass fraction] 92 % Dr. Harish Noel Work Phone: [facility] 05-16-2022 13:10-0500 Systolic blood pressure 115 mm[Hg] Dr. Harish Noel Work Phone: [facility] 04-11-2022 14:31-0500 Body height 157.[address] Harish Noel Work Phone: [facility] 04-11-2022 14:31-0500 Body mass index (BMI) [Ratio] 40.6 kg/m2 Dr. Harish Noel Work Phone: [facility] 04-11-2022 14:31-0500 Body weight 100.[address] Harish Noel Work Phone: [facility] 04-11-2022 14:31-0500 Diastolic blood pressure 93 mm[Hg] Dr. Harish Noel Work Phone: [facility] 04-11-2022 14:31-0500 Heart rate 80 /min Dr. Harish Noel Work Phone: [facility] 04-11-2022 14:31-0500 Respiratory rate 18 /min Dr. Harish Noel Work Phone: [facility] 04-11-2022 14:31-0500 SaO2% (BldA) [Mass fraction] 93 % Dr. Harish Noel Work Phone: [facility] 04-11-2022 14:31-0500 Systolic blood pressure 151 mm[Hg] Dr. Harish Noel Work Phone: [facility] 01-21-2022 19:56-0500 Diastolic blood pressure 60 mm[Hg] Dr. Harish Noel Work Phone: [facility] Work Phone: 01-21-2022 19:56-0500 Heart rate 74 /min Dr. Harish Noel Work Phone: [facility] Work Phone: 01-21-2022 19:56-0500 Respiratory rate 17 /min Dr. Harish Noel Work Phone: [facility] Work Phone: 01-21-2022 19:56-0500 SaO2% (BldA) [Mass fraction] 97 % Dr. Harish Noel Work Phone: [facility] Work Phone: 01-21-2022 19:56-0500 Systolic blood pressure 162 mm[Hg] Dr. Harish Noel Work Phone: [facility] Work Phone: 01-21-2022 15:54-0500 Body height 157.[address] Harish Noel Work Phone: [facility] Work Phone: 01-21-2022 15:54-0500 Body mass index (BMI) [Ratio] 42.4 kg/m2 Dr. Harish Noel Work Phone: [facility] Work Phone: 01-21-2022 15:54-0500 Body temperature 97.4 [degF] Dr. Harish Noel Work Phone: [facility] Work Phone: 01-21-2022 15:54-0500 Body weight 105.[address] Harish Noel Work Phone: [facility] Work Phone: 01-11-2022 15:21-0400 Body height 157.[address] Harish Noel Work Phone: [facility] Work Phone: 01-11-2022 15:21-0400 Body mass index (BMI) [Ratio] 40.9 kg/m2 Dr. Harish Noel Work Phone: [facility] Work Phone: 01-11-2022 15:21-0400 Body weight 101.[address] Harish Noel Work Phone: [facility] Work Phone: 01-11-2022 15:21-0400 Diastolic blood pressure 68 mm[Hg] Dr. Harish Noel Work Phone: [facility] Work Phone: 01-11-2022 15:21-0400 Heart rate 71 /min Dr. Harish Noel Work Phone: [facility] Work Phone: 01-11-2022 15:21-0400 Respiratory rate 18 /min Dr. Harish Noel Work Phone: [facility] Work Phone: 01-11-2022 15:21-0400 Systolic blood pressure 134 mm[Hg] Dr. Harish Noel Work Phone: [facility] Work Phone: 01-08-2022 14:16-0400 Body temperature 98.1 [degF] Dr. Harish Noel Work Phone: [facility] Work Phone: 01-08-2022 14:16-0400 Body weight 100.[address] Harish Noel Work Phone: [facility] Work Phone: 01-08-2022 14:16-0400 Diastolic blood pressure 84 mm[Hg] Dr. Harish Noel Work Phone: [facility] Work Phone: 01-08-2022 14:16-0400 Heart rate 84 /min Dr. Harish Noel Work Phone: [facility] Work Phone: 01-08-2022 14:16-0400 Respiratory rate 18 /min Dr. Harish Noel Work Phone: [facility] Work Phone: 01-08-2022 14:16-0400 SaO2% (BldA) [Mass fraction] 92 % Dr. Harish Noel Work Phone: [facility] Work Phone: 01-08-2022 14:16-0400 Systolic blood pressure 136 mm[Hg] Dr. Harish Noel Work Phone: [facility] Work Phone: 11-29-2021 11:55-0400 Body temperature 98.24 [degF] POLLY PHILIPPE MD [facility] 11-29-2021 11:55-0400 Diastolic Blood Pressure NBP 62 1 POLLY PHILIPPE MD [facility] 11-29-2021 11:55-0400 Heart rate 93 /min POLLY PHILIPPE MD [facility] 11-29-2021 11:55-0400 Mean blood pressure 77 mm[Hg] POLLY PHILIPPE MD [facility] 11-29-2021 11:55-0400 Reason For Taking VItal Signs POLLY PHILIPPE MD [facility] 11-29-2021 11:55-0400 Systolic Blood Pressure NBP 112 1 POLLY PHILIPPE MD [facility] 11-29-2021 10:33-0400 Heart rate 89 /min POLLY PHILIPPE MD [facility] 11-29-2021 09:05-0400 Heart rate 101 /min POLLY PHILIPPE MD [facility] 11-29-2021 07:28-0400 Body temperature 98.6 [degF] POLLY PHILIPPE MD [facility] 11-29-2021 07:28-0400 Diastolic Blood Pressure NBP 63 1 POLLY PHILIPPE MD [address] [place] [address] 11-29-2021 07:28-0400 Mean blood pressure 78 mm[Hg] POLLY PHILIPPE MD [address] [place] [address] 11-29-2021 07:28-0400 Reason For Taking VItal Signs POLLY PHILIPPE MD [address] [place] [address] 11-29-2021 07:28-0400 Respiratory rate 18 /min POLLY PHILIPPE MD [address] 11-29-2021 07:28-0400 Systolic Blood Pressure NBP 114 1 POLLY PHILIPPE MD [address] [place] [address] 11-29-2021 04:28-0400 Body temperature 98.6 [degF] POLLY PHILIPPE MD [address] 11-29-2021 04:28-0400 Diastolic Blood Pressure NBP 52 1 POLLY PHILIPPE MD [address] [place] [address] 11-29-2021 04:28-0400 Mean blood pressure 64 mm[Hg] POLLY PHILIPPE MD [address] [place] [address] 11-29-2021 04:28-0400 Reason For Taking VItal Signs POLLY PHILIPPE MD [address] [place] [address] 11-29-2021 04:28-0400 Respiratory rate 18 /min POLLY PHILIPPE MD [address] [place] [address] 11-29-2021 04:28-0400 Systolic Blood Pressure NBP 109 1 POLLY PHILIPPE MD [address] [place] [address] 11-29-2021 00:35-0400 Respiratory rate 18 /min POLLY PHILIPPE MD [facility] 11-28-2021 03:43-0400 SaO2% (BldA) [Mass fraction] 94.9 % POLLY PHILIPPE MD [facility] 11-27-2021 23:49-0400 Heart rate 98 /min POLLY PHILIPPE MD [facility] 11-26-2021 23:14-0400 Heart rate 84 /min POLLY PHILIPPE MD [facility] 11-26-2021 22:40-0400 SaO2% (BldA) [Mass fraction] 94.8 % POLLY PHILIPPE MD [facility] 11-26-2021 21:11-0400 SaO2% (BldA) [Mass fraction] 93.8 % POLLY PHILIPPE MD [facility] 11-26-2021 13:18-0400 Diastolic blood pressure 55 mm[Hg] POLLY PHILIPPE MD [facility] 11-26-2021 13:18-0400 Mean blood pressure 73 mm[Hg] POLLY PHILIPPE MD [facility] 11-26-2021 13:18-0400 Systolic blood pressure 113 mm[Hg] POLLY PHILIPPE MD [facility] 11-26-2021 11:24-0400 Diastolic blood pressure 58 mm[Hg] POLLY PHILIPPE MD [facility] 11-26-2021 11:24-0400 Mean blood pressure 86 mm[Hg] POLLY PHILIPPE MD [facility] 11-26-2021 11:24-0400 Systolic blood pressure 127 mm[Hg] POLLY PHILIPPE MD [facility] 11-26-2021 10:06-0400 Diastolic blood pressure 55 mm[Hg] POLLY PHILIPPE MD [facility] 11-26-2021 10:06-0400 Mean blood pressure 82 mm[Hg] POLLY PHILIPPE MD [facility] 11-26-2021 10:06-0400 Systolic blood pressure 123 mm[Hg] POLLY PHILIPPE MD [facility] 11-26-2021 09:30-0400 Diastolic blood pressure 52 mm[Hg] POLLY PHILIPPE MD [facility] 11-26-2021 09:30-0400 Heart rate 77 /min POLLY PHILIPPE MD [address] [place] [address] 11-26-2021 09:30-0400 Mean blood pressure 73 mm[Hg] POLLY PHILIPPE MD [address] [place] [address] 11-26-2021 09:30-0400 Systolic blood pressure 116 mm[Hg] POLLY PHILIPPE MD [address] [place] [address] 11-26-2021 06:29-0400 Heart rate 88 /min POLLY PHILIPPE MD [facility] 11-25-2021 00:10-0400 Body temperature 98.42 [degF] POLLY PHILIPPE MD [address] [place] [address] 11-24-2021 20:09-0400 Body temperature 98.06 [degF] POLLY PHILIPPE MD [address] 11-24-2021 15:35-0400 Body temperature 98.42 [degF] POLLY PHILIPPE MD [facility] 11-23-2021 12:45-0400 Body temperature 98.44 [degF] POLLY PHILIPPE MD [facility] 11-23-2021 12:45-0400 Body temperature 97.88 [degF] POLLY PHILIPPE MD [facility] 11-23-2021 12:40-0400 Body temperature 98.55 [degF] POLLY PHILIPPE MD [address] [place] [address] 11-23-2021 12:40-0400 Body temperature 97.93 [degF] POLLY PHILIPPE MD [facility] 11-23-2021 12:35-0400 Body temperature 98.56 [degF] POLLY PHILIPPE MD [facility] 11-23-2021 12:35-0400 Body temperature 98.01 [degF] POLLY PHILIPPE MD [facility] 11-23-2021 12:11-0400 SaO2% (BldA) [Mass fraction] 97.8 % POLLY PHILIPPE MD [facility] 11-23-2021 11:29-0400 SaO2% (BldA) [Mass fraction] 99.2 % POLLY PHILIPPE MD [facility] 11-23-2021 11:00-0400 SaO2% (BldA) [Mass fraction] 99.0 % POLLY PHILIPPE MD [facility] 11-23-2021 06:01-0400 Heart rate 76 /min POLLY PHILIPPE MD [facility] 11-23-2021 05:54-0400 Body height 157.5 cm POLLY PHILIPPE MD [facility] 11-23-2021 05:54-0400 Body weight 102.3 kg POLLY PHILIPPE MD [facility] 11-23-2021 05:54-0400 Body weight 41.24 kg/m2 POLLY PHILIPPE MD [facility] 11-23-2021 05:54-0400 diastolic 105 mm[Hg] POLLY PHILIPPE MD [facility] 11-23-2021 05:54-0400 systolic 131 mm[Hg] POLLY PHILIPPE MD [facility] 11-05-2021 04:06-0400 Diastolic blood pressure 77 mm[Hg] Dr. Harish Noel Work Phone: [facility] Work Phone: 11-05-2021 04:06-0400 Heart rate 79 /min Dr. Harish Noel Work Phone: [facility] Work Phone: 11-05-2021 04:06-0400 Respiratory rate 20 /min Dr. Harish Noel Work Phone: [facility] Work Phone: 11-05-2021 04:06-0400 SaO2% (BldA) [Mass fraction] 95 % Dr. Harish Noel Work Phone: [facility] Work Phone: 11-05-2021 04:06-0400 Systolic blood pressure 159 mm[Hg] Dr. Harish Noel Work Phone: [facility] Work Phone: 11-05-2021 02:14-0400 Body height 157.[address] Harish Noel Work Phone: [facility] Work Phone: 11-05-2021 02:14-0400 Body mass index (BMI) [Ratio] 41.8 kg/m2 Dr. Harish Noel Work Phone: [facility] Work Phone: 11-05-2021 02:14-0400 Body temperature 98.1 [degF] Dr. Harish Noel Work Phone: [facility] Work Phone: 11-05-2021 02:14-0400 Body weight 103.[address] Harish Noel Work Phone: [facility] Work Phone: 09-08-2021 14:58-0400 Diastolic blood pressure 81 mm[Hg] Dr. Harish Noel Work Phone: [facility] Work Phone: 09-08-2021 14:58-0400 SaO2% (BldA) [Mass fraction] 94 % Dr. Harish Noel Work Phone: [facility] Work Phone: 09-08-2021 14:58-0400 Systolic blood pressure 157 mm[Hg] Dr. Harish Noel Work Phone: [facility] Work Phone: 09-08-2021 11:55-0400 Body height 157.[address] Harish Noel Work Phone: [facility] Work Phone: 09-08-2021 11:55-0400 Body mass index (BMI) [Ratio] 40.7 kg/m2 Dr. Harish Noel Work Phone: [facility] Work Phone: 09-08-2021 11:55-0400 Body temperature 97.1 [degF] Dr. Harish Noel Work Phone: [facility] Work Phone: 09-08-2021 11:55-0400 Body weight 101.[address] Harish Noel Work Phone: [facility] Work Phone: 09-08-2021 11:55-0400 Heart rate 101 /min Dr. Harish Noel Work Phone: [facility] Work Phone: 09-08-2021 11:55-0400 Respiratory rate 22 /min Dr. Harish Noel Work Phone: [facility] Work Phone: 09-05-2021 07:52-0400 Body height 157.[address] Harish Noel Work Phone: [facility] Work Phone: 09-05-2021 07:52-0400 Body weight 100.[address] Harish Noel Work Phone: [facility] Work Phone: 09-01-2021 12:02-0400 Body mass index (BMI) [Ratio] 40.6 kg/m2 Dr. Harish Noel Work Phone: [facility] Work Phone: 08-28-2021 09:45-0400 Body mass index (BMI) [Ratio] 40.6 kg/m2 Dr. Harish Noel Work Phone: [facility] Work Phone: 08-28-2021 09:45-0400 Body weight 100.[address] Harish Noel Work Phone: [facility] Work Phone: 08-28-2021 09:45-0400 Diastolic blood pressure 71 mm[Hg] Dr. Harish Noel Work Phone: [facility] Work Phone: 08-28-2021 09:45-0400 Heart rate 87 /min Dr. Harish Noel Work Phone: [facility] Work Phone: 08-28-2021 09:45-0400 Respiratory rate 18 /min Dr. Harish Noel Work Phone: [facility] Work Phone: 08-28-2021 09:45-0400 Systolic blood pressure 134 mm[Hg] Dr. Harish Noel Work Phone: [facility] Work Phone: 06-16-2021 15:17-0400 Body mass index (BMI) [Ratio] 41.1 kg/m2 Dr. Harish Noel Work Phone: [facility] Work Phone: 06-16-2021 15:17-0400 Body weight 102.[address] Harish Noel Work Phone: [facility] Work Phone: 06-16-2021 15:17-0400 Diastolic blood pressure 83 mm[Hg] Dr. Harish Noel Work Phone: [facility] Work Phone: 06-16-2021 15:17-0400 Heart rate 83 /min Dr. Harish Noel Work Phone: [facility] Work Phone: 06-16-2021 15:17-0400 Respiratory rate 18 /min Dr. Harish Noel Work Phone: [facility] Work Phone: 06-16-2021 15:17-0400 Systolic blood pressure 163 mm[Hg] Dr. Harish Noel Work Phone: [facility] Work Phone: 06-16-2021 15:17-0400 Body height 157.[address] Harish Noel Work Phone: [facility] Work Phone: 06-16-2021 15:17-0400 Body mass index (BMI) [Ratio] 41.1 kg/m2 Dr. Harish Noel Work Phone: [facility] Work Phone: 06-16-2021 15:17-0400 Body weight 102.[address] Harish Noel Work Phone: [facility] Work Phone: 06-16-2021 15:17-0400 Diastolic blood pressure 83 mm[Hg] Dr. Harish Noel Work Phone: [facility] Work Phone: 06-16-2021 15:17-0400 Heart rate 83 /min Dr. Harish Noel Work Phone: [facility] Work Phone: 06-16-2021 15:17-0400 Respiratory rate 18 /min Dr. Harish Noel Work Phone: [facility] Work Phone: 06-16-2021 15:17-0400 Systolic blood pressure 163 mm[Hg] Dr. Harish Noel Work Phone: [facility] Work Phone: 06-07-2021 08:26-0400 Body temperature 96.4 [degF] Dr. Harish Noel Work Phone: [facility] Work Phone: 06-07-2021 08:26-0400 Body weight 104.[address] Harish Noel Work Phone: [facility] Work Phone: 06-07-2021 08:26-0400 Diastolic blood pressure 90 mm[Hg] Dr. Harish Noel Work Phone: [facility] Work Phone: 06-07-2021 08:26-0400 Heart rate 90 /min Dr. Harish Noel Work Phone: [facility] Work Phone: 06-07-2021 08:26-0400 Respiratory rate 16 /min Dr. Harish Noel Work Phone: [facility] Work Phone: 06-07-2021 08:26-0400 Systolic blood pressure 160 mm[Hg] Dr. Harish Noel Work Phone: [facility] Work Phone: 06-07-2021 08:26-0400 Body temperature 96.4 [degF] Dr. Harish Noel Work Phone: [facility] Work Phone: 06-07-2021 08:26-0400 Body weight 104.[address] Harish Noel Work Phone: [facility] Work Phone: 06-07-2021 08:26-0400 Diastolic blood pressure 90 mm[Hg] Dr. Harish Noel Work Phone: [facility] Work Phone: 06-07-2021 08:26-0400 Heart rate 90 /min Dr. Harish Noel Work Phone: [facility] Work Phone: 06-07-2021 08:26-0400 Respiratory rate 16 /min Dr. Harish Noel Work Phone: [facility] Work Phone: 06-07-2021 08:26-0400 Systolic blood pressure 160 mm[Hg] Dr. Harish Noel Work Phone: [facility] Work Phone: 04-25-2021 14:02-0500 Diastolic blood pressure 82 mm[Hg] Dr. Harish Noel Work Phone: [facility] Work Phone: 04-25-2021 14:02-0500 Heart rate 80 /min Dr. Harish Noel Work Phone: [facility] Work Phone: 04-25-2021 14:02-0500 Respiratory rate 13 /min Dr. Harish Noel Work Phone: [facility] Work Phone: 04-25-2021 14:02-0500 SaO2% (BldA) [Mass fraction] 98 % Dr. Harish Noel Work Phone: [facility] Work Phone: 04-25-2021 14:02-0500 Systolic blood pressure 156 mm[Hg] Dr. Harish Noel Work Phone: [facility] Work Phone: 04-25-2021 10:28-0500 Body mass index (BMI) [Ratio] 41.1 kg/m2 Dr. Harish Noel Work Phone: [facility] Work Phone: 04-25-2021 10:28-0500 Body temperature 96.1 [degF] Dr. Harish Noel Work Phone: [facility] Work Phone: 04-25-2021 10:28-0500 Body weight 102.[address] Harish Noel Work Phone: [facility] Work Phone: Encounters Encounter Date Encounter Type Care Provider Facility Start: 07-16-2024 End: 07-16-[address] Harish Noel MD Work Phone: [facility] Work Phone: Start: 07-16-2024 End: 07-16-[address] Harish Noel MD -Laboratory Work Phone: Start: 07-16-2024 End: 07-16-[address] [facility] Facility:[facility] Start: 07-02-2024 End: 07-02-[address] Harish Noel MD -[facility] Work Phone: Start: 07-02-2024 End: 07-02-[address] [facility] Facility:[facility] Start: 04-30-2024 Non-patient / Non-visit Dr. Nathan smith -[facility] Work Phone: Start: 04-30-2024 Non-patient / Non-visit Dr. Lianne Cruz MD -[facility] Start: 04-29-2024 End: 04-29-[address] [facility] Facility:[facility] Start: 04-29-2024 End: 04-29-2024 Non-patient / Non-visit Dr. Delgado Cruz MD -[facility] Work Phone: Start: 04-29-2024 End: 04-30-[address] [facility] Facility:[facility] Start: 04-29-2024 End: 04-30-2024 Evaluation and management of inpatient Dr. Nathan Torres DO -[facility] Work Phone: Start: 01-16-2024 End: 01-17-2024 ambulatory Harish Noel Facility:[facility] Start: 01-15-2024 End: 01-15-2024 Emergency department patient visit Harish Noel Facility:[facility] Start: 09-03-2023 End: 09-03-2023 Emergency department patient visit Harish Noel Facility:[facility] Start: 09-02-2023 End: 09-02-2023 Emergency department patient visit [facility]ish Noel [facility] [facility] Start: 08-05-2023 End: 08-05-2023 ambulatory Harish Noel Facility:[facility] Start: 07-28-2022 End: 07-28-2022 Emergency department patient visit Dr. Harish Noel Work Phone: [facility]-Emergency Department Start: 06-11-2022 End: 06-11-[address] Harish Noel Work Phone: [facility] Work Phone: Start: 06-11-2022 End: 06-11-[address] Harish Noel Work Phone: [facility]-Laboratory Start: 05-16-2022 End: 05-16-[address] Harish Noel Work Phone: [facility] Start: 04-11-2022 End: 04-11-[address] Harish Noel Work Phone: [facility] Start: 01-21-2022 End: 01-21-2022 Emergency department patient visit Dr. Harish Noel Work Phone: [facility]-Emergency Department Start: 01-15-2022 Non-patient / Non-visit Dr. Madison Noel Work Phone: [facility] Medicine Start: 01-11-2022 End: 01-11-[address] Harish Noel Work Phone: [facility] Work Phone: Start: 01-11-2022 End: 01-11-[address] Harish Noel Work Phone: [facility] Start: 01-11-2022 End: 01-11-[address] Harish Noel Work Phone: [facility] Start: 01-08-2022 End: 01-08-[address] Harish Noel Work Phone: [facility] Start: 12-27-2021 End: 12-28-2021 ambulatory MS. JUAN JUAREZ QUARRY BOSS Facility:A Start: 12-27-2021 End: 12-27-2021 Patient encounter procedure JUAN JUAREZ CLINICAL OFFICE TECHNICIAN-QUARRY BOSS [facility] Start: 12-13-2021 End: 12-14-2021 ambulatory MS. JUAN JUAREZ QUARRY BOSS Facility:A Start: 12-13-2021 End: 12-13-2021 Patient encounter procedure JUAN JUAREZ CLINICAL OFFICE TECHNICIAN-[facility] Start: 12-05-2021 Non-patient / Non-visit Dr. Madison Noel Work Phone: [facility] Start: 11-23-2021 End: 11-29-2021 Evaluation and management of inpatient POLLY PHILIPPE MD Facility:A Start: 11-23-2021 End: 11-29-2021 Evaluation and management of inpatient POLLY PHILIPPE MD [facility] Start: 11-17-2021 End: 11-18-2021 ambulatory POLLY PHILIPPE MD Facility:B Start: 11-17-2021 End: 11-17-2021 Patient encounter procedure POLLY PHILIPPE MD [facility] Start: 11-05-2021 End: 11-05-2021 Emergency department patient visit Dr. Harish Noel Work Phone: [facility]-Emergency Department Start: 10-31-2021 End: 11-01-2021 ambulatory POLYL PHILIPPE MD Facility:A Start: 10-31-2021 End: 11-01-2021 ambulatory POLLY PHILIPPE MD Facility:A Start: 10-11-2021 End: 10-11-2021 Emergency department patient visit HARISH NOEL MD. Facility:A Start: 09-08-2021 End: 09-08-2021 Emergency department patient visit Dr. Harish Noel Work Phone: [facility]-Emergency Department Start: 09-05-2021 Non-patient / Non-visit Dr. Madison Noel Work Phone: [facility] Start: 09-05-2021 End: 09-05-2021 Admission to same day surgery center Dr. Harish Noel Work Phone: [facility]-Seasoner/Special Procedures Start: 09-04-2021 Non-patient / Non-visit Dr. Madison Noel Work Phone: [facility] Start: 08-28-2021 End: 08-28-[address] Harish Noel Work Phone: [facility] Start: 07-25-2021 Non-patient / Non-visit Dr. Madison Noel Work Phone: [facility] Start: 07-24-2021 End: 07-24-[address] Harish Noel Work Phone: [facility]-Pulmonary Services/Neurology Start: 07-21-2021 Non-patient / Non-visit Dr. Madison Noel Work Phone: [facility] Start: 07-21-2021 End: 07-21-[address] Harish Noel Work Phone: [facility]-Cardiovascula r Services Start: 06-16-2021 End: 06-16-[address] Harish Noel Work Phone: [facility] Start: 06-07-2021 End: 06-07-[address] Harish Noel Work Phone: [facility]-Laboratory, [facility] Start: 06-07-2021 End: 06-07-[address] Harish Noel Work Phone: [facility] Internal Medicine Start: 04-25-2021 End: 04-25-2021 Emergency department patient visit Dr. Harish Noel Work Phone: [facility]-Emergency Department Start: 09-15-2016 End: 09-15-2016 Emergency department patient visit [facility] Facility:[facility] Procedures Date Procedure Procedure Detail Performing Clinician Start: 04-30-2024 Cardiovascular stress test using pharmacologic stress agent Dr. Harish Noel MD Work Phone: Start: 04-29-2024 Plain chest X-ray Dr. Harish Noel MD Work Phone: Start: 04-29-2024 SARS-CoV-2, Influenza & RSV (PCR) Dr. Madison Noel MD Work Phone: Start: 01-21-2022 CT angiography of chest with contrast Dr. Harish Noel Work Phone: Start: 01-21-2022 Plain chest X-ray Dr. Harish Noel Work Phone: Start: 11-23-2021 Coronary artery bypass graft operation planned POLLY PHILIPPE MD Start: 11-23-2021 Coronary artery bypass grafts x 2 POLLY PHILIPPE MD Comment on above: insertion of temporary A and V epicardia l pacing wires Start: 11-16-2021 History of coronary artery bypass grafting History of coronary artery bypass surgery Dr. Nathan Torres DO Comment on above: [facility] 11/23[facility]21 Start: 11-05-2021 Plain chest X-ray Dr. Harish Noel Work Phone: Start: 09-08-2021 CT of head without contrast Dr. Harish ball Work Phone: Start: 09-05-2021 Cardiac catheterization POLLY PHILIPPE MD Start: 07-21-2021 Cardiovascular stress test using pharmacologic stress agent Dr. Harish Noel Work Phone: Start: 04-25-2021 Plain chest X-ray Dr. Harish Noel Work Phone: Start: 04-25-2021 CTA Chst, Abd, Pel W and/or WO Dr. Harish Noel Work Phone: Start: 04-10-2016 Cardiac catheterization POLLY PHILIPPE MD Comment on above: possible PTCA Start: 01-03-2016 Placement of stent POLLY PHILIPPE MD Colonoscopy POLLY PHILIPPE MD Esophagogastroduodenoscopy Patrick PHILIPPE MD H/O: hysterectomy POLLY Ferrer MD H/O: tubal ligation POLLY JOHNSON MD Histology tonsillectomy NETO PHILIPPE MD History of coronary artery bypass grafting S/P CABG x 2( Confirmed ) JUAN JUAREZ CLINICAL OFFICE TECHNICIAN-QUARRY BOSS History of coronary artery bypass grafting Hx of CABG Dr. Harish Noel MD Work Phone: Hysterectomy POLLY PHILIPPE MD Viral antigen assay Dr. Ida Noel Work Phone: Plan of Treatment Date Care Activity Detail Author Start: 07-02-2024 Patient referral [facility] Work Phone: Start: 04-30-2024 Patient discharge [facility] Start: 04-30-2024 Inhalation therapy procedure [facility] Start: 04-29-2024 Following clinical p athway protocol [facility] Start: 04-29-2024 Assessment of risk o f venous thromboembolism [facility] Start: 04-29-2024 Care regimes management [facility] Start: 04-29-2024 Catheterization of vein [facility] Start: 04-29-2024 Incentive spirometry [facility] Start: 04-29-2024 Insertion of cathete r into peripheral vein [facility] Start: 04-29-2024 Measuring intake and output [facility] Start: 04-29-2024 Notification of physician [facility] Start: 04-29-[address] [facility] Start: 04-29-2024 Providing care accor ding to standard [facility] Start: 04-29-2024 Provision of activity privileges [facility] Start: 04-29-2024 Referral to service [facility] Start: 04-29-2024 End: 04-29-2024 [facility] Start: 04-29-2024 Admission procedure [facility] Start: 04-29-2024 Patient referral to dietitian [facility] Start: 05-16-2022 Patient referral [facility] Work Phone: Start: 04-11-2022 Patient referral [facility] Work Phone: Start: 11-05-2021 [facility] Work Phone: Start: 09-08-2021 [facility] Work Phone: Patient Education [facility] Work Phone: [facility] Work Phone: Payers Date Payer Category Payer Unknown [id number] 2023 Self-pay [id number] 2021 Medicare [id number] fad [id number] 2016 Medicaid [id number] 1950 Unknown [id number] 2.16.8 [id number] 1950 Unknown [id number] 2.16.8 [id number] 1950 Unknown [id number] 2.16.8 [id number] 1950 Unknown [id number] 2.16.8 [id number] 1950 Unknown [id number] 2.16.8 40.1.279379.3.579.2.627 1950 Unknown [id number] 2.16.8 40.1.945488.3.579.2.627 1950 Unknown [id number] 2.16.8 40.1.295528.3.579.2.627 Unknown [id number] 2.16.8 40.1.450483.3.579.2.462 Unknown [id number] 2.16.8 40.1.159917.3.579.2.462 Unknown [id number] 2.16.8 40.1.226273.3.579.2.462 Unknown [id number] 2.16.8 40.1.611142.3.579.2.462 Unknown [id number] 2.16.8 40.1.571332.3.579.2.462 Unknown [id number] 2.16.8 40.1.964102.3.579.2.462 Unknown [id number] 2.16.8 40.1.071196.3.579.2.462 Unknown [id number] 2.16.8 40.1.239856.3.579.2.462 Unknown [id number] 2.16.8 40.1.926883.3.579.2.462 Unknown [id number] 2.16.8 40.1.455778.3.579.2.462 Unknown [id number] 2.16.8 40.1.074468.3.579.2.462 Unknown [id number] 2.16.8 40.1.111200.3.579.2.462 Unknown [id number] 2.16.8 [id number] Social History Date Type Detail Facility Start: 06-16-2021 End: 07-28-2022 Tobacco smoking status NHIS Unknown if ever smoked [facility] Start: 07-05-2020 Non-smoker [facility] Start: 1950 Sex Assigned At Female A [facility] Start: 10-31-2021 End: 04-29-2024 Tobacco smoking status Ex-smoker (finding) [facility] Comment on above: Quit in 2015 Start: 07-22-2024 Sex Female (finding) [facility] Goals Date Patient Goal Desired Activity /State Functional Status Date Assessment Result Facility 04-30-2024 Functional status Ambulates;Bathroom Priv ilege [facility] Work Phone: 11-29-2021 Functional Status Supervised 1 [facility] 11-29-2021 Functional Status COVID 19 Surge in Effec t Yes [facility] 11-28-2021 Functional Status Ambulation in [facility] 11-28-2021 Functional Status [facility] 11-28-2021 Functional Status Mod I [facility] 11-28-2021 Functional Status Supervised 12 [facility] 11-28-2021 Functional Status Bath cloths, Shampoo/Body wash (no rinse) [facility] 11-27-2021 Functional Status [facility] 11-27-2021 Functional Status [facility] 11-27-2021 Functional Status Done [facility] 11-27-2021 Functional Status bilateral knee high [facility] 11-27-2021 Functional Status [facility] 11-26-2021 Functional Status [facility] 11-25-2021 Functional Status No falls in th e last 6 months, per pt. [facility] 11-25-2021 Functional Status [facility] 11-25-2021 Functional Status [facility] 11-25-2021 Functional Status SCD On/Re-appl ied bilateral knee high [facility] 11-25-2021 Functional Status [facility] 11-25-2021 Functional Status [facility] 11-24-2021 Functional Status preventative foam dress ing [facility] 11-24-2021 Functional Status 100 [facility] 11-24-2021 Functional Status Apartment, Single level home [facility] 11-23-2021 Functional Status [facility] 11-23-2021 Functional Status Special Call D evice Unable to use call device [facility] 11-23-2021 Functional Status [facility] 11-23-2021 Functional Status [facility] 11-23-2021 Functional Status Sensory Deficits None A [facility] Mental Status Date Assessment Result Facility 04-30-2024 Cognitive function Voice/Name [facility] Work Phone: 11-29-2021 Mental Status Oriented x 4 [facility] 11-29-2021 Mental Status [facility] 11-28-2021 Mental Status [facility] 11-05-2021 Cognitive function Voice/Name [facility] Work Phone: 09-08-2021 Cognitive function Level Of Cons ciousness Awake;Alert;Appropriate;Follow s Commands [facility] Work Phone: 04-25-2021 Cognitive function Voice/Name [facility] Work Phone: Clinical Notes 03-18-2016 to 04-30-2024 Note Date & Type Note Facility 04-30-2024 Note [facility] Medical Records Department [address] [place] [address] Discharge Summary 04/30/24 1446 MR#: [id number] Acct: [id number] Name: FELICITAS ALCANTARA Rep #: [id number] : 1950 73 From: Nathan Torres DO PCP: Dr. Harish Noel MD Status:ADM RUBINA Location: [place] [address] Providers Date of Admission: 04/29/24 Primary Care Physician: Dr. Harish Noel MD Reason For Visit: HYPERTENSIVE URGENCY Diagnosis Discharge Diagnosis (1) Chest pain: Status: Acute Code(s): R07.9 - Chest pain, unspecified Qualifiers: Chest pain type: unspecified Qualified Code(s): R07.9 - Chest pain, unspecified Plan: Stress test negative. Plan DM2 uncontrolled: resume insulin mix. Recommend follow up with endocrinology. Medications at Discharge Home Medications levothyroxine 112 mcg tablet 112 mcg PO DAILY #90 tabs 01/16/24 blood-glucose sensor (Dexcom G7 Sensor device) #1 ea 01/20/24 carvedilol 25 mg tablet 25 mg PO BID #60 tabs 04/15/24 insulin lispro protamine-lispro 100 unit/mL (75-25) subcutaneous pen See Rx Instructions subcut BID #15 mL 04/16/24 Weight / BMI Weight Weight: 100.8 kg Body Mass Index (BMI) 40.6 ABG / Lab / Microbiology Data 04/30/24 06:40 04/30/24 06:40 Laboratory: Laboratory Results - last 24 hr 04/29/24 15:25: WBC 14.8 H, RBC 5.33, Hgb 15.2 H, Hct 47.7 H, MCV 89.5, MCH 28.5, MCHC 31.9 L, RDW Std Deviation 43.5, RDW Coeff of Eveline 13.2, Plt Count 291, MPV 10.7, Immature Gran % (Auto) 0.600, N eut % (Auto) 79.6 H, Lymph % (Auto) 12.1 L, [place] % (Auto) 4.9, Eos % (Auto) 2.3, Baso % (Auto) 0.5, Absolute Neuts (auto) 11.7 H, Absolute Lymphs (auto) 1.79, Nucleated RBC % 0, D-Dimer Quant (PE/DVT) < 0.27 L, Sodium 136, Potassium 3.8, Chloride 101, Carbon Dioxide 26.0, Anion Gap 9, BUN 15, Creatinine 0.82, Estim Creat Clear Calc 70.51, Est GFR (MDRD) Af Amer 88, Est GFR (MDRD) Non-Af 73, BUN/Creatinine Ratio 18.2, Glucose 148 H, Calcium 9.6, Troponin I High Sens 12, B-Natriuretic Peptide 161.4 H 04/29/24 17:20: Urine Color Straw, Urine Clarity Clear, Urine pH 8.0, Ur Specific [place] 1.010, Urine Protein Negative, Urine Glucose (UA) Normal, Urine Ketones Negative, Urine Occult Blood 10 H, Urine Nitrite Negative, Urine Bilirubin Negative, Urine Urobilinogen Normal, Ur Leukocyte Esterase 25 H, Urine RBC 0-5 SEEN, Urine WBC 0-5 SEEN, Ur Squamous Epith Cells 0-5 SEEN, Urine Bacteria 0 SEEN, Urine Mucus 0 SEEN 04/29/24 18:23: Troponin I High Sens 14 04/29/24 21:55: POC Glucose 245 H 04/29/24 22:41: Hemoglobin A1c 9.4 H, Troponin I High Sens 17, Triglycerides 155, Cholesterol 197, LDL Cholesterol 102, VLDL Cholesterol 31, HDL Cholesterol 64, TSH 3.480 04/30/24 06:02: POC Glucose 365 H 04/30/24 06:40: WBC 17.7 H, RBC 5.60 H, Hgb 16.3 H, Hct 49.8 H, MCV 88.9, MCH 29.1, MCHC 32.7, RDW Std Deviation 43.2, RDW Coeff of Eveline 13.3, Plt Count 328, MPV 10.6, Immature Gran % (Auto) 1.200 H, Neut % (Auto) 90.6 H, Lymph % (Auto) 7.1 L, [place] % (Auto) 0.5, Eos % (Auto) 0.0, Baso % (Auto) 0.6, Absolute Neuts (auto) 16.1 H, Absolute Lymphs (auto) 1.26, Nucleated RBC % 0, Sodium 137, Potassium 4.4, Chloride 100, Carbon Dioxide 25.0, Anion Gap 13, BUN 19 H, Creatinine 1.08 H, Estim Creat Clear Calc 52.31, Est GFR (MDRD) Af Amer 64, Est GFR (MDRD) Non-Af 53 L, BUN/Creatinine Ratio 17.6, G lucose 352 H, Calcium 10.4 H, Phosphorus 3.7, Magnesium 2.1, Total Bilirubin 1.10 H, AST 15, ALT 19, Alkaline Phosphatase 116, Total Protein 8.4 H, Albumin 3.8, Globulin 4.6 H, Albumin/Globulin Ratio 0.8 L 04/30/24 10:12: POC Glucose 404 H 04/30/24 11:48: POC Glucose 399 H Microbiology: Microbiology 04/29/24 17:25 Mucosa - Nose SARS-CoV-2, Influenza RSV (PCR) - Final ABG: ABG 04/29/24 23:22 Specimen Type ART Sample Site L Radial pH 7.53 H Bicarbonate Actual 27.2 H Total CO2 28 Base Excess 4 H O2 Saturation 94 L ABG pCO2 32.8 L ABG pO2 60 L Wagner Test Positive O2 Delivery Device Room Air Vent Mode Not entered Radiography Diagnostic Testing: Radiology Impression Chest X-Ray 04/29/24 16:08 IMPRESSION: Stable mild cardiomegaly. Otherwise unremarkable chest radiograph. Reading Location: [id number] D/C Instructions Discharge Diet: 2000 Calorie Control Diet DC O2, CPAP, BIPAP Needs Home O2 Discharge instructions: No Meaningful Use Info Meaningful Use Meaningful Use Diagnoses (Choose all that apply): None applicable Ischemic Stroke Statin Dosing Therapy Reference: STATIN DOSE THERAPY REFERENCE: * Patients > 75 years receive moderate or high dose statin therapy. * Patients 75 years or YOUNGER should receive HIGH intensity statin dose unless contraindicated. You will be required to document reason for non-treat (more content not included)... [facility] 04-29-2024 Evaluation note Diagnosis Onset Date Resolution Leukocytosis acute April 8:28pm Asthmatic bronchitis resolved 2024 8:28pm Chest pain resolved April 29, 2024 8:28pm CORONA (dyspnea on exertion) resolved April 29, 2024 8:28pm Hypertensive urgency resolved 2024 8:28pm History of coronary artery bypass surgery November, inactive April 29, 2024 8:28pm History of left heart catheterization (LHC) August, inactive April 182024 8:28pm History of non-ST elevation myocardial infarction (NSTEMI) inactive April 8:28pm Morbid obesity with BMI of 40.0-44.9, adult inactive April 29, 2024 8:28pm Presence of stent in coronary artery March, inactive April 29, 2024 8:28pm Fatigue acute July 02 12:52pm 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 chronic July 02, 2024 12:52pm Essential hypertension chronic July 02, 2024 12:52pm Hyperlipemia chronic July 02, 2024 12:52pm Hypothyroidism chronic June 12:52pm Type 2 diabetes mellitus chronic July 02, 2024 12:52pm Chest pain noneactive July 02 12:52pm [facility] Work Phone: 1(652) 499-370911-06-2022 Hospital Discharge instructions Additional Instructions 2 puffs of albuterol metered-dose inhaler every 4-6 hours for shortness of breath or wheezing.[facility] Work Phone: 1(986) 596-886910-13-2022 Note ORIGINAL EXAMINATION: TWO XRAY VIEWS OF THE CHEST12/27/2021 12:14 pm XR Chest, two views COMPARISON: 12/13/2021 HISTORY: ORDERING SYSTEM PROVIDED HISTORY: Reason for Exam: pleural effusion, recent open heart surgery FINDINGS: The lungs show no infiltrate, consolidation or mass. Heart size and mediastinal contours are stable accounting for differences in projection and patient position. No pneumothorax, pleural fluid, or vascular congestion is seen. The bones show no acute process. Postop changes in the heart. Resolution of previous pleural effusion and basilar atelectasis. Stable left upper lobe nodule since 2016, therefore benign. IMPRESSION: No acute cardio pulmonary process. Complete resolution of left pleural effusion and basilar atelectasis. Interpreted by: Fausto Wong MD Preliminary Report By: Fausto Wong MD Electronically signed By Fausto Wong MD Dictated Date: 12/28/2021 12:00:58 AM Prelim Date: 12/28/2021 12:02:56 AM Sign Date: 12/28/2021 12:02:56 AM Ordering Provider: [facility]10-12-2022 Note ORIGINAL EXAMINATION: TWO XRAY VIEWS OF THE CHEST12/27/2021 12:14 pm XR Chest, two views COMPARISON: 12/13/2021 HISTORY: ORDERING SYSTEM PROVIDED HISTORY: Reason for Exam: pleural effusion, recent open heart surgery FINDINGS: The lungs show no infiltrate, consolidation or mass. Heart size and mediastinal contours are stable accounting for differences in projection and patient position. No pneumothorax, pleural fluid, or vascular congestion is seen. The bones show no acute process. Postop changes in the heart. Resolution of previous pleural effusion and basilar atelectasis. Stable left upper lobe nodule since 2017, therefore benign. IMPRESSION: No acute cardio pulmonary process. Complete resolution of left pleural effusion and basilar atelectasis. Interpreted by: Fausto Wong MD Preliminary Report By: Fausto Wong MD Electronically signed By Fausto Wong MD Dictated Date: 12/28/2021 12:00:58 AM Prelim Date: 12/28/2021 12:02:56 AM Sign Date: 12/28/2021 12:02:56 AM Ordering Provider: [facility]09-16-2022 Evaluation + Plan note Future Scheduled Tests Laboratory* Basic Metabolic Panel 12/01/21 Radiology* XR Chest 2 Views (PA & Lateral) 12/19/21 [facility] 09-15-2022 Note ORIGINAL EXAMINATION: TWO XRAY VIEWS OF THE CHEST11/29/2021 7:18 am COMPARISON: Chest x-ray November 28, 2021 HISTORY: ORDERING SYSTEM PROVIDED HISTORY: Reason for Exam: Pleural effusions FINDINGS: Left subclavian central venous catheter with the tip projecting in similar position in the SVC. Midline surgical padmini and median sternotomy wires. Stable cardiomegaly. No significant pulmonary vascular congestion. Small left and trace right pleural effusions with adjacent airspace disease. No pneumothorax. No acute osseous abnormality. IMPRESSION: Small left and trace right pleural effusions with adjacent airspace disease. I have personally reviewed the images of this examination and agree with the resident's findings and interpretation. Interpreted by: Antwan Fountain Preliminary Report By: Akua Bejarano Electronically signed By Antwan Fountain Dictated Date: 11/29/2021 8:05:15 AM Prelim Date: 11/29/2021 8:10:22 AM Sign Date: 11/30/2021 12:35:45 AM Ordering Provider[facility] NAT DUNN [id number] Note Discharge Instructions Thank you for allowing [facility] to assist you with your healthcare needs. The following is importantdischarge information regarding your hospital visit. 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/23/21, EF55% Acute blood loss anemia Diabetes mellitus Hgb A1c 9.7% High blood pressure Hyperlipemia Statin intolerance Hypothyroid CKD stage 3 IBS (irritable bowel syndrome) History of DVT (deep vein thrombosis) History of tobacco use History of gastrointestinal bleeding Hypercapnia Leukocytosis Postoperative urinary retention Dysuria Incontinent of urine Acute postoperative pain What to do next Instructions From Your Doctor - Use incentive spirometer and Acapella 10 times every hour while awake -Obtain weight daily and keep a log -Bring weight log to office visit on 12/05/2021 -Please notify cardiothoracic surgery office if you gain 2 pounds in 1 day or 3 pounds in 1 week -Elevate legs above the level of the heart for minimum of 20 minutes 3 times daily -May shower with indwelling [place] catheter in place -Notify cardiothoracic office if you develop a fever of 101 F or higher, develop sudden onset of shortness of breath, develop pain uncontrolled by pain medications, and/or develop puslike drainage from incision site -Please wear bra or breast support while lying down -Keep midsternal chest incision covered with gauze dressing while wearing a bra or breast support. Scheduled Follow-Up Appointments Appointment Type When With Where Contact InformationCTS OV Post Op 12/05/2021 10:00 AM EDT JUAN JUAREZ [facility] Cardiothoracic Surgery Follow Up Appointments Follow Up with JUAN JUAREZ When 12/05/2021 10:00 AM EDT Why: This will be with Dr. Philippe's nurse practitioner. Please present to [place] radiology department 1 hour prior to this visit for chest x-ray. Chest padmini will be removed at this visit. Where: [address] [facility] [place] [address]- Follow Up with Discharge to [facility] LOC [phone] When Within 1-2 days Follow Up with GAGE CHIRINOS MD, [facility] When Why: Please call rianna for follow-up appointment in 4-6 weeks (re: diabetes), can schedule at [place] office. Bring blood glucose meter with you to your appointment. Where: [address] [place] [address] [phone] Follow Up with SAQIB FRASER MD, [facility], Urology Service When Within 1-2 days Why: Please call to arrange a hospital follow-up and possible trial void. Where: [address] [facility] [address] [facility] [place] [address]- [phone] Follow Up with HARISH NOEL MD When Within 1-2 days Why: Please call to arrange a hospital follow-up. Where: [address] [facility] [address] [place] [address]- [phone] Follow Up with free When Why: Follow up with primary care to have a Sleep Study ordered Where: Follow Up with Cardiac Rehab When Why: The Cardiac Rehab department will call you in 6 weeks to schedule you for phase 2. Informationgiven about cardiac rehab. If you have any questions please call [phone]. Where: [address] [facility] [place] [address]- The Following Activity and Diet Have Been Ordered for You Transfer of Care Activity - Ordered -- Other, No lifting greater than 10 pounds, no tub baths or swimming, no driving x6 weeks; may shower, 11/29/21 9:18:00 EDT Transfer of Care Diet - Ordered -- Type of Diet: Cardiac, Diet Restrictions: Cardiac diet Low cholesterol Low sodium, Calories Permitted: 1800 kcal, 11/29/21 9:18:00 EDT The Following Equipment Has Been Ordered for You Discharge Home Equipment Discharge Blood Glucose Monitoring - Ordered -- When to Test: Before each meal and at bedtime Transfer of Care Urinary Catheter Insertion/Care - Ordered -- Indwelling, Routine care per facility guidelines; [place] catheter inserted on 11/28/2021., 11/29/21 9:18:37 EDT Transfer of Care Wound Care - Ordered -- Dressing Type: Dry sterile drsg, Sternum, Change Dressing: daily, Please wash midsternal chest incision with soap and water daily, pat dry, keep covered with dry sterile dressing while wearing braor breast support, 11/29/21 9:18:00 EDT Transfer of Care Wound Care - Ordered -- Dressing Type: Open to Air, Leg, lower right, Change Dressing: daily, Wash right leg surgical incisions with soap and water daily, pat dry, keep open to air, 11/29/21 9:18:00 EDT The Following Treatments Have Been Ordered for You Discharge Labs Transfer of Care Labwork - Ordered -- CBC, Acute blood loss anemia, CBC weekly and as needed, 11/29/21 9:18:00 EDT Transfer of Care Labwork - Ordered -- BMP, Electrolyte imbalance, BMP weekly and as needed, 11/29/21 9:18:00 EDT Transfer of Care Labwork - Ordered -- BMP, Electrolyte imbalance, follow-up within: 1 week, Results Notify to: POLLY PHILIPPE MD, BMP to be drawn prior to office visit on 12/05/2021, send results to Dr. Philippe, 11/29/21 9:18:00 EDT Discharge Radiology Transfer of Care Radiology - Ordered -- Chest x-ray, Pleural effusions, Chest x-ray weekly and as needed, 11/29/21 9:18:00 EDT Transfer of Care Radiology - Ordered -- PA and lateral chest x-ray, Pleural effusions, follow-up within: 1 week, Results Notify to: POLLY PHILIPPE MD, Please present to [place] radiology department 1 hour prior to office visit on 12/05/2021 for chest x-ray., 11/29/21 9:18:00 EDT Other Therapies Discharge Blood Glucose Monitoring - Ordered -- When to Test: Before each meal and at bedtime Transfer of Care OT - Ordered -- Your therapy ordered is: OT, Reason for therapy: Generalized weakness, 11/29/21 9:18:00 EDT Transfer of Care PT - Ordered -- Your therapy ordered is: PT, Reason for therapy: Generalized weakness, 11/29/21 9:18:00 EDT Post Acute Orders Transfer of Care Admission Level of Care - Ordered -- Level of Care SNF, 11/29/21 9:18:37 EDT Transfer of Care Code Status - Ordered -- Full Code, Constant Order Transfer of Care Communication Order - Ordered -- Expect less than 30 day stay., 11/29/21 9:18:37 EDT Transfer of Care Communication Order - Ordered -- Please wear a bra or or binder when laying down, may remove when sitting up in chair., 11/29/21 9:18:37 EDT Transfer of Care Communication Order - Ordered -- Midsternal chest padmini will be removed at office visit on 12/05/2021, 11/29/21 9:28:08 EDT Transfer of Care Labwork - Ordered -- CBC, Acute blood loss anemia, CBC weekly and as needed, 11/29/21 9:18:00 EDT Transfer of Care Labwork - Ordered -- BMP, Electrolyte imbalance, BMP weekly and as needed, 11/29/21 9:18:00 EDT Transfer of Care Labwork - Ordered -- BMP, Electrolyte imbalance, follow-up within: 1 week, Results Notify to: POLLY PHILIPPE MD, BMP to be drawn prior to office visit on 12/05/2021, send results to Dr. Philippe, 11/29/21 9:18:00 EDT Transfer of Care Orders Electronically Signed By - Ordered -- 11/29/21 9:18:00 EDT, POLLY PHILIPPE MD Transfer of Care Oxygen Therapy - Ordered -- Oxygen (CONTINUOUS), Nasal Cannula, 1.5 liters per minute, 99 month(s), 11/29/21 9:18:00 EDT Transfer of Care Prognosis - Ordered -- Good, Patient Aware: Yes Transfer of Care Rehab Potential - Ordered -- Rehab potential good, 11/29/21 9:18:37 EDT Transfer of Care Urinary Catheter Insertion/Care - Ordered -- Indwelling, Routine care per facility guidelines; [place] catheter inserted on 11/28/2021., 11/29/21 9:18:37 EDT Someone Will Contact You Regarding These Home Health Referrals No home referrals have been ordered for you. No one will call you. Allergies Invokana (Stomach Pains, Diarrhea) Statins Trulicity alogliptin (Hives) aspirin (blood clots) glipiZIDE extended release levothyroxine (Rash, Diarrhea) metFORMIN (Diarrhea) penicillin (Swelling) Medications Please ask your primary doctor or pharmacist before taking any other medication not listed, including over the counter drugs, herbal medications, vitamins and or supplements as they may interact withyour home medications. What How Much When Why Instructions Last Dose New acetaminophen 650 Milligram by mouth Every 4 hours as needed for Pain, scale 1-6 New bumetanide (bumetanide 2 mg oral tablet) 2 tab(s) by mouth Every day Duration: 30 Days 4 mg every morning. Printed Prescription New docusate (Surfak Stool Softener) 240 Milligram by mouth Two (2) times a day as needed for as needed for constipation New glucagon (GlucaGen) 1 Milligram Intramuscular As Directed as needed for Hypoglycemia New insulin glargine (Lantus 100 units/ mL10 ml vial solution) 25 unit(s) Subcutaneous (INT) Daily at bedtime New insulin lispro (HumaLOG) (HumaLOG 100 units/ mL subcutaneous solution) 18 unit(s) Subcutaneous Before breakfast hold if npo New insulin lispro (HumaLOG) (HumaLOG 100 units/ mL subcutaneous solution) Give 0-10 units/dose Subcutaneous Four (4) times daily-before meals and at bedtime New insulin lispro (HumaLOG) (HumaLOG 100 units/ mL subcutaneous solution) 15 unit(s) Subcutaneous With lunch & supper hold if npo New potassium chloride (potassium chloride 20 mEq oral tablet, extended release) 1 tab(s) by mouth Two (2) times a day Duration: 30 Days Printed Prescription New traMADol (traMADol 50 mg oral tablet) 1 tab(s) by mouth Every 6 hours as needed for Pain, scale 7-10 Acute postoperative pain Duration: 7 Days Printed Prescription Changed carvedilol (Coreg 25 mg oral tablet) 1 tab(s) by mouth Twice daily with meals Printed Prescription Unchanged thyroid desiccated (thyroid desiccated 60 mg oral tablet) 1 tab(s) by mouth Once a day What How Much When Comments Stop Taking insulin aspart-insulin aspart protamine (Novolog Mix 70/ 30) (NovoLOG Mix 70/ 30 FlexPen 3 mL Pen) See instructions inject 24 units subcutaneously twice a day before meals Stop Taking nitroGLYcerin (nitroglycerin 0.4 mg sublingual tablet) 1 tab(s) under the tongue Every 5 minutes as needed for as needed for chest pain Please take this list to your next doctor s visit. Bring all medications you take, including over the counter medications, herbals and other supplements with you to your doctor s visit. Patients and families are reminded to discard old lists and to update any records with all medication providers or retail pharmacies. Education Materials Daily Weight Record It is important to weigh yourself daily. To do this: Make sure you use a reliable scale. Use the same scale each day. Keep this daily weight chart near your scale. Weigh yourself each morning at the same time. Before weighing yourself: ? Take off your shoes. ? Make sure you are wearing the same amount of clothing each day. Write down your weight in the spaces on the form. Compare today's weight to yesterday's weight. Bring this form with you to your follow-up visits with your health care provider. Call your health care provider if you have concerns about your weight, including rapid weight gain or loss. Date: Weight: Date: Weight: Date: Weight: Date: Weight: Date: Weight: Date: Weight: Date: Weight: Date: Weight: Date: Weight: Date: Weight: Date: Weight: Date: Weight: Date: Weight: Date: Weight: Date: Weight: Date: Weight: Date: Weight: Date: Weight: Date: Weight: Date: Weight: Date: Weight: Date: Weight: Date: Weight: Date: Weight: Date: Weight: Date: Weight: Date: Weight: Date: Weight: Date: Weight: Date: Weight: Date: Weight: Date: Weight: Date: Weight: Date: Weight: Date: Weight: Date: Weight: Date: Weight: Date: Weight: Date: Weight: Date: Weight: Date: Weight: Date: Weight: Date: Weight: Date: Weight: Date: Weight: Date: Weight: Date: Weight: Date: Weight: Date: Weight: Date: Weight: This information is not intended to replace advice given to you by your health care provider. Make sure you discuss any questions you have with your health care provider. Document Released: 05/16/2007 Document Revised: 03/03/2018 Document Reviewed: 03/03/2018 Elsevier Patient Education 2020 [employer] Carbohydrate Counting for Diabetes Mellitus, Adult Carbohydrate counting is a method of keeping track of how many carbohydrates you eat. Eating carbohydrates naturally increases the amount of sugar (glucose) in the blood. Counting how many carbohydrates you eat helps keep your blood glucose within normal limits, which helps you manage your diabetes(diabetes mellitus). It is important to know how many carbohydrates you can safely have in each meal. This is different for every person. A diet and child nutrition assistant (registered dietitian) can help you make a meal plan and calculate how many carbohydrates you should have at each meal and snack. Carbohydrates are found in the following foods: Grains, such as breads and cereals. Dried beans and soy products. Starchy vegetables, such as potatoes, peas, and corn. Fruit and fruit juices. Milk and yogurt. Sweets and snack foods, such as cake, cookies, candy, chips, and soft drinks. How do I count carbohydrates? There are two ways to count carbohydrates in food. You can use either of the methods or a combination of both. Reading Nutrition Facts on packaged food The Nutrition Facts list is included on the labels of almost all packaged foods and beverages in the [place] It includes: The serving size. Information about nutrients in each serving, including the grams (g) of carbohydrate per serving. To use the Nutrition Facts: Decide how many servings you will have. Multiply the number of servings by the number of carbohydrates per serving. The resulting number is the total amount of carbohydrates that you will be having. Learning standard serving sizes of other foods When you eat carbohydrate foods that are not packaged or do not include Nutrition Facts on the label, you need to measure the servings in order to count the amount of carbohydrates: Measure the foods that you will eat with a food scale or measuring cup, if needed. Decide how many standard-size servings you will eat. Multiply the number of servings by 15. Most carbohydrate-rich foods have about 15 g of carbohydrates per serving. ? For example, if you eat 8 oz (170 g) of strawberries, you will have eaten 2 servings and 30 g of carbohydrates (2 servings x 15 g = 30 g). For foods that have more than one food mixed, such as soups and casseroles, you must count the carbohydrates in each food that is included. The following list contains standard serving sizes of common carbohydrate-rich foods. Each of theseservings has about 15 g of carbohydrates: hamburger bun or [place]er muffin. oz (15 mL) syrup. oz (14 g) jelly. 1 slice of bread. 1 six-inch tortilla. 3 oz (85 g) cooked rice or pasta. 4 oz (113 g) cooked dried beans. 4 oz (113 g) starchy vegetable, such as peas, corn, or potatoes. 4 oz (113 g) hot cereal. 4 oz (113 g) mashed potatoes or of a large baked potato. 4 oz (113 g) canned or frozen fruit. 4 oz (120 mL) fruit juice. 4 6 crackers. 6 chicken nuggets. 6 oz (170 g) unsweetened dry cereal. 6 oz (170 g) plain fat-free yogurt or yogurt sweetened with artificial sweeteners. 8 oz (240 mL) milk. 8 oz (170 g) fresh fruit or one small piece of fruit. 24 oz (680 g) popped popcorn. Example of carbohydrate counting Sample meal 3 oz (85 g) chicken breast. 6 oz (170 g) brown rice. 4 oz (113 g) corn. 8 oz (240 mL) milk. 8 oz (170 g) strawberries with sugar-free whipped topping. Carbohydrate calculation 1. Identify the foods that contain carbohydrates: Rice. Centre. Milk. Strawberries. 2. Calculate how many servings you have of each food: 2 servings rice. 1 serving corn. 1 serving milk. 1 serving strawberries. 3. Multiply each number of servings by 15 servings rice x 15 g = 30 g. 1 serving corn x 15 g = 15 g. 1 serving milk x 15 g = 15 g. 1 serving strawberries x 15 g = 15 g. 4. Add together all of the amounts to find the total grams of carbohydrates eaten: 30 g + 15 g + 15 g + 15 g = 75 g of carbohydrates total. Summary Carbohydrate counting is a method of keeping track of how many carbohydrates you eat. Eating carbohydrates naturally increases the amount of sugar (glucose) in the blood. Counting how many carbohydrates you eat helps keep your blood glucose within normal limits, which helps you manage your diabetes. A diet and child nutrition assistant (registered dietitian) can help you make a meal plan and calculate how many carbohydrates you should have at each meal and snack. This information is not intended to replace advice given to you by your health care provider. Make sure you discuss any questions you have with your health care provider. Document Released: 03/04/2006 Document Revised: 09/26/2017 Document Reviewed: 08/15/2016 [employer] Patient Education 2020 [employer] OPEN HEART SURGERY (Bypass or Valve Surgery) General Guidelines for Care After Surgery Please read the instructions below and refer to it during the next few weeks. Recovering from surgery is different for everyone. Some people feel great after 3 or 4 weeks and others take longer depending on their condition before the surgery. These are general guidelines on how to care for yourself but always follow your doctor s instructions. If you have questions or problems after you go home, please call your doctor. MEDICINES You have the list of medicine you need to take at home. Be sure you understand this list and keep acopy with you at all times. Never add or stop medicine unless you check with your doctor first. Call the doctor if you have any of the following problems: If you start throwing up or have stomach pain or diarrhea If you feel dizzy or lightheaded when you stand up If you are confused or have trouble walking If you feel like your heart is racing and beating fast or if you feel like it is beating too slow If you get a rash If you notice bleeding or lots of bruising If you are taking a blood thinner such as warfarin after having valve surgery, please read the handout that has been given to you by the nurse. PAIN AFTER SURGERY You might feel some pain after your heart surgery. Please take your pain medicine if you need it following the directions on the bottle. If your pain becomes worse or if you are having trouble breathing, call your surgeon. As you heal and the pain begins to go away, take your pain medicine less often Pain medicine will sometimes cause you to become constipated. It is OK to take an over the counter stool softener. Eating lots of fruit and vegetables can also help with constipation. CARE OF YOUR INCISIONS Pay attention to your incisions and shower every day after you go home. Some swelling, bruising or redness is normal and will get better with time. Do not take a bath until all of your incisions are healed. Wash the incisions gently with antibacterial soap and water in the shower Use a clean washcloth every day Wash your chest incision first, then wash any arm incision, and last wash leg incisions Wash the rest of your body after cleaning all of your incisions Never use any cream or lotion on your incisions until they are healed all the way. Keep your incisions clean and dry Do not cover the incision with a dressing unless you are having drainage If you have padmini, they will be taken out at the office visit You might notice some swelling or a lump at the top of the chest incision, but this is normal. [place] surgeon right away if you notice clicking in your chest. Your legs might swell after your surgery so follow these tips: Keep legs elevated when sitting. As a rule, it is best to elevate them above the level of your heart. For instance, if you are lying flat on a sofa, place your legs up on the arm of the sofa. Do not cross your legs. Wear your elastic stockings during the day for 4 weeks. Put them on before you get out of bed in the morning and then take them off at night. These will help keep your legs from swelling. ACTIVITY It is important to keep moving after heart surgery, but you will need to take rest periods throughout the day. Every day, increase your activity as you are able. Walk as much as possible, and gradually increase your distance every day. It will be normal to be sore for a couple of weeks after surgery. Get medical attention if your condition seems to be getting worse instead of better No heavy housework or heavy work outdoors You may use the stairs as tolerated Avoid lifting anything greater than 10 pounds Avoid any pushing or pulling with your arms. Avoid overexertion and take rest periods when you get tired Do not drive until your doctor tells you it is OK, typically 4 weeks. It is fine to go upstairs but take it slow and do not pull yourself up with the handrail. Avoid opening windows and opening tight jar lids. Do not bear down with bowel movements and do not hold your breath. Check with the surgeon before returning to work. Waiting 1-3 weeks is recommended for sexual intercourse. When you can walk briskly or climb 2 flights of stairs without pain or shortness of breath, you may be ready for sex. WEIGHT Weigh yourself every morning and write it down on paper. Use the same scale and weigh at the same time each day. Tell your doctor if you gain 2 pounds or more in one day. EATING HEALTHY Your doctor wants you to follow a heart healthy diet which is low in salt and low in fat. Your nurse has given you a book all about the diet you will need to follow. If you are diabetic or overweight, you will be given a calorie restriction too. If constipation is a problem, add more bran or fiber to your diet and you may take a mild [id number] laxative like Milk of Magnesia . CARDIAC REHABILITATION Getting involved in cardiac rehab after your heart surgery is the best thing that you can do to feel better and stronger at a faster rate. The program is medically supervised to help patients recoverand improve mental and physical function. It also helps reduce stress and can decrease your risk ofhaving more heart problems. Your doctor will let you know when you can begin the program. SMOKING Give up smoking after heart surgery or it may cancel out the value of having your surgery. It may also delay the healing process. If you need help to quit, please call your surgeon or your heart doctor. [facility] also has a free stop smoking program called Give it Up and if you want to attend, pleasecall [phone] ([phone]). Call the Surgeon If your incisions are red, oozing pus, or bleeding or if the edges are Call if there is a clicking in your sternum. Call if you are more short of breath. Call if you have dizziness Call if you have a fever of 101 or higher. Call if you have more ankle swelling, pain in your leg, or pain in your calf. Call the Heart Doctor (Addiction Treatment Counselor) If your heart beats are irregular or are fast. If you have any questions about your medicine. If you gain 2 or more pounds in one day. If you feel dizzy or lightheaded when you first stand up. If you have any questions about getting help at home after you are discharged. If you have painful, frequent or bloody urination. GET IMMEDIATE MEDICAL HELP IF YOU HAVE: Chest pain, jaw pain, sweating, dizziness or severe shortness of breath, you could be having a heart attack. Please dial 9-1-1 immediately. Additional Information VACCINATE! IT SAVES LIVES! Members of the community who have not yet received the COVID-19 vaccine and would like to receive it can visit one of [facility] vaccine clinics. There are many vaccine clinic locations within the [facility]. For locations and available times, please visit [email or web address] It is important to note that some COVID mobile vaccine clinics are held outdoors and may be canceled in rainy or stormy conditions. To learn more about pediatric vaccinations (ages 5-11), we invite you to visit the [facility] webpage. [email or web address]/[email or web address] [email or web address] learn more about the COVID-19 vaccine, we invite you to visit the [employer] website for a list of frequently asked questions. [email or web address] [facility] Patient Portal Access Instructions: Stay connected with your healthcare team and access your personal medical information anytime with the [facility] Patient Portal.If you would like a full copy of your medical records, please contact the [facility] Medical Records Department, Saturday through Saturday between 8a.m. and 4:30p.m. Please follow the directions below to access the portal: 1.Access the email account you provided upon registration to the [facility].2.Look for an invitation email from [facility].3.Open the email and access the invitation link: Accept Invitation to [facility].Fill in the required singer to create your account. Sign into [email or web address] with your username and password that you created in the above steps to stay up to date. You can then view a summary of results, a summary of your visits, and the ability to download your summaries to your computer or send the information securely to a physician. Remember that your healthcare information is confidential, so carefully consider who you will allow to register on the [facility] Patient Portal for access to your information. You can also access the [facility] Patient Portal on the [employer]. Simply click on Health Records under [place] and then click on the [employer] logo. HOW TO SAFELY DISPOSE OF PRESCRIPTION MEDICATIONS Please use one of the following methods to safely dispose of your unused medications. 1.Use a drug disposal kit: the drug disposal pouch allows you to safely discard your old and unuseddrugs. Ask your nurse to give you one when you are discharged.2.Visit a local take-back location: Many local pharmacies and police departments have programs that collect old and unwanted prescriptiondrugs. Call your local pharmacy or go to http://bit.ly/5W7Wd6b to find one close to you.3.Make use of household items: Use cat litter or old coffee grounds to dispose medications if other options arenot available. Mix your drugs with these household products, seal them in an airtight container andthrow it into the garbage. Call [facility]: [phone] to be sure your drugs can be disposed of in this way. Some medicines may require a different approach.4.Never flush your medications down the toilet. IF YOU HAVE BEEN PRESCRIBED AN OPIOID FOR PAIN If you have been prescribed an opioid (such as hydrocodone, oxycodone or morphine), it is critical to understand the possible side effects and risks of opioid pain medications. Even when taken as directed, opioids can have several side effects including: Tolerance, meaning you might need to take more of a medication for the same pain relief. Nausea, vomiting and/or constipation. Sleepiness, dizziness, dry mouth, confusion, depression or itching. Physical dependence, meaning you have withdrawal symptoms when a medication is stopped, can develop within a few days. KNOW YOUR RESPONSIBILITIES It is important to know exactly how much and how often to take the opioid pain medications you are prescribed. Never take opioids in higher amounts or more often than prescribed. Do not combine opioids with alcohol or other drugs that cause drowsiness, such as benzodiazepines, also known as benzos, including diazepam and alprazolam, muscle relaxants or sleep aids. Never sell or share prescription opioids. This is illegal. Store opioids in a secure place and out of reach of others (including children, family, friends and visitors). The last page of this document has been signed and retained as a CHART COPY. Signatures Patient Education Materials Form - Daily Weight Record Carbohydrate Counting for Diabetes Mellitus, Adult 8- Open Heart Surgery (Bypass or Valve) 04/2019 (CUSTOM) Medication Leaflets My discharge plan and instructions have been reviewed and explained to me and IHIRA VIR[place] K understand my current condition and have read and understand these discharge instructions. I have received a written copy of the plan/instructions. If I have questions, I am aware that I should contactmy doctor. 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 This note is a shared visit for services provided by Dr. Chirinos and myself. The following notesummarizes the services I have provided. Please refer to her addendum/note for further recommendations. Subjective Chart reviewed. Overnight events and plan of care d/w patient and nursing. Plan for d/c to SNF today. Patient c/o fatigue. Reports she ate 100% of breakfast. Objective Vitals and Measurements T: 37 C (Oral) TMIN: 36.8 C (Oral) TMAX: 37.1 C (Oral) HR: 89(Monitored) RR: 18 BP: 114/63 SpO2: 94% WT: 94.6 kg Intake and Output 7AM Yesterday to 7AM Today Intake and Output (Last 24 hours) Intake Oral Intake 710.00 Output Urinary Catheter Output: 1800.00 Stool Count 0.00 Emesis Count 0.00 Total Summary Total Intake 710.00 Total Output 1800.00 Fluid Balance -1090.00 Physical Exam Lying in bed, sleepy but conversant, no acute distress. Respirations are unlabored. Anterior diminished. RRR. Trace LE edema. Abdomen soft, BS+. [place]. Weight Current Weight Dosing Weight: 102.3 kg (11/23/21) Current Weight: 94.6 kg (11/29/21) Current Weight: 101.2 kg (11/27/21) Medications Medications (36) Active Scheduled: (13) bumetanide 1 mg tablet 4 mg 4 tab(s), Oral, qAM carvedilol 25 mg tablet 25 mg 1 tab(s), Oral, BIDM docusate calcium 240 mg Capsule 240 mg 1 cap(s), Oral, BID insulin glargine 25 unit(s) 0.25 mL, Subcutaneous (INT), qHS insulin lispro 100 units/mL Soln (3 mL) Give 0-10 units/dose, Subcutaneous, achs insulin lispro 100 units/mL Soln (3 mL) 18 unit(s) 0.18 mL, Subcutaneous, acBreakfast insulin lispro 100 units/mL Soln (3 mL) 15 unit(s) 0.15 mL, Subcutaneous, lunch/supper Misc communication order Cefazolin, Miscellaneous, qDay multivitamin (Chromagen Forte) with iron Vitamin B Complex with C, Folic Acid and Iron tablet 1 tab(s), Oral, qDay mupirocin 2% Ointment 22 Gram(s) tube 1 ina, Nostril, each, BID pantoprazole 40 mg EC tablet 40 mg 1 tab(s), Oral, qDayAC potassium chloride 20 mEq ER tablet 20 mEq 1 tab(s), Oral, BID thyroid desiccated 60 mg tablet 60 mg 1 tab(s), Oral, qDay Continuous: (1) insulin regular 100 unit(s) + NS Premix Diluent 100 mL 100 mL, Intravenous PRN: (22) acetaminophen 325 mg Tablet 650 mg 2 tab(s), Oral, q4h Al hydrox/Mg hydrox/simethicone 200-200-20 mg/5 mL Susp UD 30 mL, Oral, q2h albuterol - ipratropium 2.5 mg-0.5 mg/3 mL Inhal Fernanda UD 3 mL, Inhalation, q4hRT bisacodyl 10 mg Suppository 10 mg 1 supp, Rectal, qDay budesonide 0.5 mg/2 mL Susp UD 0.5 mg 2 mL, Inhalation, BIDRT dextrose 50% Solution Disp syringe 50 mL 25 g 50 mL, IV Push, AsDirected dextrose 50% Solution Disp syringe 50 mL 12.5 gram(s) 25 mL, IV Push, AsDirected dextrose 50% Solution Disp syringe 50 mL 12.5 g 25 mL, IV Push, AsDirected glucagon recombinant 1 mg 1 mg 1 mL, Intramuscular, AsDirected insulin regular human recombinant 100 units/mL (3 mL) Soln 10 unit(s) 0.1 mL, IV Push, q1h magnesium hydroxide 8% Suspension 30 mL UD 30 mL, Oral, qDay magnesium sulfate 4g/50mL PMX 4 g 50 mL, IV Piggyback, AsDirected melatonin 1mg tablet 1 mg 1 tab(s), Oral, qHS ondansetron 2 mg/ 1 mL 2 mL INJ 4 mg 2 mL, IV Push, q4h phenol topical 1.4% Spr 1 spray(s), Topical, q1h polyethylene glycol 3350 - UD packet 17 gram(s) 15 mL, Oral, qDay potassium chloride (PMX) 20 mEq 50 mL, IV Piggyback, AsDirected potassium chloride (PMX) 15 mEq 50 mL, IV Piggyback, AsDirected potassium chloride (PMX) 10 mEq 50 mL, IV Piggyback, AsDirected protamine 10 mg/mL (50 mg/5 mL) vial 50 mg 5 mL, IV Push, Once tramadol 50 mg Tablet 100 mg 2 tab(s), Oral, q4h tramadol 50 mg Tablet 50 mg 1 tab(s), Oral, q4h Lab Results 11/29 04:54 WBC: 16.8 H Hgb: 11.4 L Hct: 34.6 Platelet: 365 Neutrophil %: 74.0 Glucose Level: 168 H Sodium Level: 134 L Potassium Level: 3.9 BUN: 19.0 Creatinine Lvl (s): 0.82 Group Detail Date Value w/Units Flags Normal Range Normal Reference Text Comment Ind Glucose Testing Blood Glucose, Capillary 11/29/2021 07:28:00 EDT 174 mg/dL ID [id number] Glucose Testing Glucose Level 11/29/2021 04:54:00 EDT 168 mg/dL ID [id number] Glucose Testing Blood Glucose, Capillary 11/28/2021 20:21:00 EDT 159 mg/dL ID [id number] Glucose Testing Blood Glucose, Capillary 11/28/2021 16:40:00 EDT 159 mg/dL HI [id number] Y Glucose Testing Blood Glucose, Capillary 11/28/2021 11:53:00 EDT 202 mg/dL ID [id number] Glucose Testing Blood Glucose, Capillary 11/28/2021 07:15:00 EDT 205 mg/dL ID [id number] EKG No qualifying data available. Assessment/Plan 1. CAD IN [place] ARTERY s/p PCI 2015; s/p CABG x2 11/23/21, EF55% 2. Acute blood loss anemia 3. Diabetes mellitus Hgb A1c 9.7% 4. High blood pressure 5. Hyperlipemia 6. Statin intolerance 7. Hypothyroid 8. CKD stage 3 9. IBS (irritable bowel syndrome) 10. History of DVT (deep vein thrombosis) 11. History of tobacco use 12. History of gastrointestinal bleeding 13. Hypercapnia 14. Leukocytosis 15. Postoperative urinary retention 16. Dysuria 17. Incontinent of urine Orders: glucagon, Dose : 1 mg = 1 mL, Intramuscular, AsDirected, PRN Hypoglycemia, 0 Refill(s) insulin glargine, Dose : 25 unit(s) =, Subcutaneous (INT), qHS, 0 Refill(s) insulin lispro (HumaLOG), Start: 11/29/21 7:48:00 EDT, Dose = 18 unit(s), = 0.18 mL, Subcutaneous, acBreakfast, 0, 11/29/21 7:48:00 EDT insulin lispro (HumaLOG), Start: 11/29/21 7:48:00 EDT, Dose = 15 unit(s), = 0.15 mL, Subcutaneous, lunch/supper, 0, 11/29/21 7:48:00 EDT insulin lispro (HumaLOG), Give 0-10 units/dose, Subcutaneous, achs, 0 Refill(s) insulin lispro (HumaLOG), Dose : 18 unit(s) =, Subcutaneous, acBreakfast, 0 Refill(s) insulin lispro (HumaLOG), Dose : 15 unit(s) =, Subcutaneous, lunch/supper, 0 Refill(s) insulin lispro (HumaLOG), Start: 11/25/21 22:00:00 EDT, Give 0-10 units/dose, Subcutaneous, achs, 11/25/21 17:27:00 EDT Communication Order (scheduled) 71-year-old female with past medical history of CAD status post PCI in 2016, hypothyroidism, hypertension, hyperlipidemia, irritable bowel syndrome, diabetes, history of DVT, history of tobacco use (quit 6 years ago), history of GI bleeds requiring blood transfusions, and obesity. 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 Jewell in [place] which revealed an EF of 55% with 70% stenosis of the left main and a patent stent in her right coronary artery. She was seen and evaluated by Dr. Philippe. On November 23, 2021, she underwent a two-vessel coronary artery bypass grafting using ADAN to LAD with a reverse saphenous vein, aortocoronary graft to the first obtuse marginal coronary artery. She tolerated the surgery well and was was transferred to cardiovascular ICUin stable condition. Briefly required nitroprusside drip postoperatively for blood pressure control. Endocrinology consulted for diabetic management. 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 Previously established with endocrinology, Dr. Chirinos, now being managed by PCP. On home regimen of 70/30 24 units twice daily.Trial of multiple non-insulin injectables, oral agents which she has not tolerated due to GI complaints. Patient also with hypothyroidism. Elevated TSH noted 9.830. Recently transition to thyroid desiccated 60 daily due to reported intolerance of levothyroxine which she previously had been taking longstanding. Orders for the same have been reintroduced. Repeat thyroid function testing outpatient in 4 to 6 weeks Also with history of hyperlipidemia, statin intolerant. Experiences myalgia. Reportedly has trialedseveral agents. Lipid panel did result showing total cholesterol 85, triglycerides 72, HDL 34, LDL 37. Discussed with her A1c. Reviewed A1c goals, glycemic targets. She is morbidly obese with a BMI of 41. In need of better diet control, weight loss. Further discussions of the same as her clinical course progresses Last 24 hours: On Lantus 25 units qHS, Humalog 15 units tidac. Pre-lunch hyperglycemia; hence, Humalog increased to 18 units acBR. Plan for d/c to SNF on the same. Can call for follow-up if desired. Med Rec and Depart Updated. Time Spent 25 min Digitally Signed by DIVINA DOSS on 11/29/2021 11:37 AM [id number] Discharge instructions Patient Education 11/29/2021 08:48:47 Form - Daily Weight Record Daily Weight Record It is important to weigh yourself daily. To do this: Make sure you use a reliable scale. Use the same scale each day. Keep this daily weight chart near your scale. Weigh yourself each morning at the same time. Before weighing yourself: ?Take off your shoes. ?Make sure you are wearing the same amount of clothing each day. Write down your weight in the spaces on the form. Compare today's weight to yesterday's weight. Bring this form with you to your follow-up visits with your health care provider. Call your health care provider if you have concerns about your weight, including rapid weight gain or loss. Date: Weight: Date: Weight: Date: Weight: Date: Weight: Date: Weight: Date: Weight: Date: Weight: Date: Weight: Date: Weight: Date: Weight: Date: Weight: Date: Weight: Date: Weight: Date: Weight: Date: Weight: Date: Weight: Date: Weight: Date: Weight: Date: Weight: Date: Weight: Date: Weight: Date: Weight: Date: Weight: Date: Weight: Date: Weight: Date: Weight: Date: Weight: Date: Weight: Date: Weight: Date: Weight: Date: Weight: Date: Weight: Date: Weight: Date: Weight: Date: Weight: Date: Weight: Date: Weight: Date: Weight: Date: Weight: Date: Weight: Date: Weight: Date: Weight: Date: Weight: Date: Weight: Date: Weight: Date: Weight: Date: Weight: Date: Weight: Date: Weight: Date: Weight: This information is not intended to replace advice given to you by your health care provider. Make sure you discuss any questions you have with your health care provider. Document Released: 05/16/2007 Document Revised: 03/03/2018 Document Reviewed: 03/03/2018 [employer] Patient Education 2020 [employer]. 11/29/2021 08:48:46 Carbohydrate Counting for Diabetes Mellitus, Adult Carbohydrate Counting for Diabetes Mellitus, Adult Carbohydrate counting is a method of keeping track of how many carbohydrates you eat. Eating carbohydrates naturally increases the amount of sugar (glucose) in the blood. Counting how many carbohydrates you eat helps keep your blood glucose within normal limits, which helps you manage your diabetes(diabetes mellitus). It is important to know how many carbohydrates you can safely have in each meal. This is different for every person. A diet and child nutrition assistant (registered dietitian) can help you make a meal plan and calculate how many carbohydrates you should have at each meal and snack. Carbohydrates are found in the following foods: Grains, such as breads and cereals. Dried beans and soy products. Starchy vegetables, such as potatoes, peas, and corn. Fruit and fruit juices. Milk and yogurt. Sweets and snack foods, such as cake, cookies, candy, chips, and soft drinks. How do I count carbohydrates? There are two ways to count carbohydrates in food. You can use either of the methods or a combination of both. Reading Nutrition Facts on packaged food The Nutrition Facts list is included on the labels of almost all packaged foods and beverages in the [place] It includes: The serving size. Information about nutrients in each serving, including the grams (g) of carbohydrate per serving. To use the Nutrition Facts: Decide how many servings you will have. Multiply the number of servings by the number of carbohydrates per serving. The resulting number is the total amount of carbohydrates that you will be having. Learning standard serving sizes of other foods When you eat carbohydrate foods that are not packaged or do not include Nutrition Facts on the label, you need to measure the servings in order to count the amount of carbohydrates: Measure the foods that you will eat with a food scale or measuring cup, if needed. Decide how many standard-size servings you will eat. Multiply the number of servings by 15. Most carbohydrate-rich foods have about 15 g of carbohydrates per serving. ?For example, if you eat 8 oz (170 g) of strawberries, you will have eaten 2 servings and 30 g of carbohydrates (2 servings x 15 g = 30 g). For foods that have more than one food mixed, such as soups and casseroles, you must count the carbohydrates in each food that is included. The following list contains standard serving sizes of common carbohydrate-rich foods. Each of theseservings has about 15 g of carbohydrates: hamburger bun or [place] muffin. oz (15 mL) syrup. oz (14 g) jelly. 1 slice of bread. 1 six-inch tortilla. 3 oz (85 g) cooked rice or pasta. 4 oz (113 g) cooked dried beans. 4 oz (113 g) starchy vegetable, such as peas, corn, or potatoes. 4 oz (113 g) hot cereal. 4 oz (113 g) mashed potatoes or of a large baked potato. 4 oz (113 g) canned or frozen fruit. 4 oz (120 mL) fruit juice. 4 6 crackers. 6 chicken nuggets. 6 oz (170 g) unsweetened dry cereal. 6 oz (170 g) plain fat-free yogurt or yogurt sweetened with artificial sweeteners. 8 oz (240 mL) milk. 8 oz (170 g) fresh fruit or one small piece of fruit. 24 oz (680 g) popped popcorn. Example of carbohydrate counting Sample meal 3 oz (85 g) chicken breast. 6 oz (170 g) brown rice. 4 oz (113 g) corn. 8 oz (240 mL) milk. 8 oz (170 g) strawberries with sugar-free whipped topping. Carbohydrate calculation 1.Identify the foods that contain carbohydrates: Rice. [place]. Milk. Strawberries. 2.Calculate how many servings you have of each food: 2 servings rice. 1 serving corn. 1 serving milk. 1 serving strawberries. 3.Multiply each number of servings by 15 servings rice x 15 g = 30 g. 1 serving corn x 15 g = 15 g. 1 serving milk x 15 g = 15 g. 1 serving strawberries x 15 g = 15 g. 4.Add together all of the amounts to find the total grams of carbohydrates eaten: 30 g + 15 g + 15 g + 15 g = 75 g of carbohydrates total. Summary Carbohydrate counting is a method of keeping track of how many carbohydrates you eat. Eating carbohydrates naturally increases the amount of sugar (glucose) in the blood. Counting how many carbohydrates you eat helps keep your blood glucose within normal limits, which helps you manage your diabetes. A diet and child nutrition assistant (registered dietitian) can help you make a meal plan and calculate how many carbohydrates you should have at each meal and snack. This information is not intended to replace advice given to you by your health care provider. Make sure you discuss any questions you have with your health care provider. Document Released: 03/04/2006 Document Revised: 09/26/2017 Document Reviewed: 08/15/2016 [employer] Patient Education 2020 [employer]. 11/29/2021 08:48:44 8- Open Heart Surgery (Bypass or Valve) 04/2019 (CUSTOM) OPEN HEART SURGERY (Bypass or Valve Surgery) General Guidelines for Care After Surgery Please read the instructions below and refer to it during the next few weeks. Recovering from surgery is different for everyone. Some people feel great after 3 or 4 weeks and others take longer depending on their condition before the surgery. These are general guidelines on how to care for yourself but always follow your doctor s instructions. If you have questions or problems after you go home, please call your doctor. MEDICINES You have the list of medicine you need to take at home. Be sure you understand this list and keep acopy with you at all times. Never add or stop medicine unless you check with your doctor first. Call the doctor if you have any of the following problems: If you start throwing up or have stomach pain or diarrhea If you feel dizzy or lightheaded when you stand up If you are confused or have trouble walking If you feel like your heart is racing and beating fast or if you feel like it is beating too slow If you get a rash If you notice bleeding or lots of bruising If you are taking a blood thinner such as warfarin after having valve surgery, please read the handout that has been given to you by the nurse. PAIN AFTER SURGERY You might feel some pain after your heart surgery. Please take your pain medicine if you need it following the directions on the bottle. If your pain becomes worse or if you are having trouble breathing, call your surgeon. As you heal and the pain begins to go away, take your pain medicine less often Pain medicine will sometimes cause you to become constipated. It is OK to take an over the counter stool softener. Eating lots of fruit and vegetables can also help with constipation. CARE OF YOUR INCISIONS Pay attention to your incisions and shower every day after you go home. Some swelling, bruising or redness is normal and will get better with time. Do not take a bath until all of your incisions are healed. Wash the incisions gently with antibacterial soap and water in the shower Use a clean washcloth every day Wash your chest incision first, then wash any arm incision, and last wash leg incisions Wash the rest of your body after cleaning all of your incisions Never use any cream or lotion on your incisions until they are healed all the way. Keep your incisions clean and dry Do not cover the incision with a dressing unless you are having drainage If you have padmini, they will be taken out at the office visit You might notice some swelling or a lump at the top of the chest incision, but this is normal. Callyour surgeon right away if you notice clicking in your chest. Your legs might swell after your surgery so follow these tips: Keep legs elevated when sitting. As a rule, it is best to elevate them above the level of your heart. For instance, if you are lying flat on a sofa, place your legs up on the arm of the sofa. Do not cross your legs. Wear your elastic stockings during the day for 4 weeks. Put them on before you get out of bed in the morning and then take them off at night. These will help keep your legs from swelling. ACTIVITY It is important to keep moving after heart surgery, but you will need to take rest periods throughout the day. Every day, increase your activity as you are able. Walk as much as possible, and gradually increase your distance every day. It will be normal to be sore for a couple of weeks after surgery. Get medical attention if your condition seems to be getting worse instead of better No heavy housework or heavy work outdoors You may use the stairs as tolerated Avoid lifting anything greater than 10 pounds Avoid any pushing or pulling with your arms. Avoid overexertion and take rest periods when you get tired Do not drive until your doctor tells you it is OK, typically 4 weeks. It is fine to go upstairs but take it slow and do not pull yourself up with the handrail. Avoid opening windows and opening tight jar lids. Do not bear down with bowel movements and do not hold your breath. Check with the surgeon before returning to work. Waiting 1-3 weeks is recommended for sexual intercourse. When you can walk briskly or climb 2 flights of stairs without pain or shortness of breath, you may be ready for sex. WEIGHT Weigh yourself every morning and write it down on paper. Use the same scale and weigh at the same time each day. Tell your doctor if you gain 2 pounds or more in one day. EATING HEALTHY Your doctor wants you to follow a heart healthy diet which is low in salt and low in fat. Your nurse has given you a book all about the diet you will need to follow. If you are diabetic or overweight, you will be given a calorie restriction too. If constipation is a problem, add more bran or fiber to your diet and you may take a mild [id number] laxative like Milk of Magnesia . CARDIAC REHABILITATION Getting involved in cardiac rehab after your heart surgery is the best thing that you can do to feel better and stronger at a faster rate. The program is medically supervised to help patients recoverand improve mental and physical function. It also helps reduce stress and can decrease your risk ofhaving more heart problems. Your doctor will let you know when you can begin the program. SMOKING Give up smoking after heart surgery or it may cancel out the value of having your surgery. It may also delay the healing process. If you need help to quit, please call your surgeon or your heart doctor. [place] also has a free stop smoking program called Give it Up and if you want to attend, pleasecall [phone]). Call the Surgeon If your incisions are red, oozing pus, or bleeding or if the edges are Call if there is a clicking in your sternum. Call if you are more short of breath. Call if you have dizziness Call if you have a fever of 101 or higher. Call if you have more ankle swelling, pain in your leg, or pain in your calf. Call the Heart Doctor (Addiction Treatment Counselor) If your heart beats are irregular or are fast. If you have any questions about your medicine. If you gain 2 or more pounds in one day. If you feel dizzy or lightheaded when you first stand up. If you have any questions about getting help at home after you are discharged. If you have painful, frequent or bloody urination. GET IMMEDIATE MEDICAL HELP IF YOU HAVE: Chest pain, jaw pain, sweating, dizziness or severe shortness of breath, you could be having a heart attack. Please dial [phone]-- immediately. Follow Up Care 10/11/2021 14:55:42 With:Discharge to [facility] [phone] Address:Unknown When:1-2 days With:GAGE CHIRINOS MD, [facility] Address: [address] [place] [address] [phone] When: Unknown Comments:Please call rianna for follow-up appointment in 4-6 weeks (re: diabetes), can schedule at [facility]. Bring blood glucose meter with you to your appointment. With:SAQIB FRASER MD, [facility], Urology Service Address: [address] [facility] [facility] [place] [address] [phone] When:1-2 days Comments:Please call to arrange a hospital follow-up and possible trial void. With:HARISH NOEL MD Address: [address] [facility] [address] [place] [address]- [phone] When:1-2 days Comments:Please call to arrange a hospital follow-up. With:JUAN JUAREZ APRN-QUARRY BOSS Address: [address] [place] [address] A-2 [address]OB[address] [facility] [place] [address]- When:12/05/2021 10:00:00 Comments:This will be with Dr. Philippe's nurse practitioner. Please present to [facility] department 1 hour prior to this visit for chest x-ray. Chest padmini will be removed at this visit. With:free Address: When: Unknown Comments:Follow up with primary care to have a Sleep Study ordered With:Cardiac Rehab Address: [address] [place] [address] [place] [address]- When: Unknown Comments:The Cardiac Rehab department will call you in 6 weeks to schedule you for phase 2. Information given about cardiac rehab. If you have any questions please call [phone]. [facility] 09-14-2022 Discharge summary Date of Service 11/29/2021 Discharge Diagnosis 1. CAD IN [place] ARTERY s/p PCI 2016; s/p CABG x2 11/23/21, EF55% (I25.10 - ICD-10-CM) 2. Acute blood loss anemia (D62 - ICD-10-CM) 3. Diabetes mellitus Hgb A1c 9.7% (E11.9 - ICD-10-CM) 4. High blood pressure (I10 - ICD-10-CM) 5. Hyperlipemia (E78.5 - ICD-10-CM) 6. Statin intolerance (Z78.9 - ICD-10-CM) 7. Hypothyroid (E03.9 - ICD-10-CM) 8. CKD stage 3 (N18.3 - ICD-10-CM) 9. IBS (irritable bowel syndrome) (K58.9 - ICD-10-CM) 10. History of DVT (deep vein thrombosis) (Z86.718 - ICD-10-CM) 11. History of tobacco use (Z87.891 - ICD-10-CM) 12. History of gastrointestinal bleeding (Z87.19 - ICD-10-CM) 13. Hypercapnia (R06.89 - ICD-10-CM) 14. Leukocytosis (D72.829 - ICD-10-CM) 15. Postoperative urinary retention (N99.89 - ICD-10-CM) 16. Dysuria (R30.0 - ICD-10-CM) 17. Incontinent of urine (R32 - ICD-10-CM) 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 (I25.10 - ICD-10-CM) Body mass index [BMI] 40.0-44.9, adult (Z68.41 - ICD-10-CM) Acute posthemorrhagic anemia (D62 - ICD-10-CM) Unspecified diastolic (congestive) heart failure (I50.30 - ICD-10-CM) Old myocardial infarction (I25.2 - ICD-10-CM) Personal history of other venous thrombosis and embolism (Z86.718 - ICD-10-CM) Hyperlipidemia, unspecified (E78.5 - ICD-10-CM) Hypothyroidism, unspecified (E03.9 - ICD-10-CM) Hypertensive chronic kidney disease with stage 1 through stage 4 chronic kidney disease, or unspecified chronic kidney disease (I12.9 - ICD-10-CM) Chronic kidney disease, stage 3 unspecified (N18.30 - ICD-10-CM) Obesity, unspecified (E66.9 - ICD-10-CM) Other abnormalities of breathing (R06.89 - ICD-10-CM) Acute postoperative pain (G89.18 - ICD-10-CM) Ordered: traMADol 50 mg oral tablet; Dose : 50 mg = 1 tab(s), Oral, q6hr, PRN Pain, scale 7-10, X 7 day(s), # 28 tab(s), 0 Refill(s), 12/06/21 9:21:00 EDT, Acute postoperative pain, 102.3 Additional Orders: Other status: BMP,11/29/21 5:01:00 EDT, Next AM Draw (one day only), Blood, Once, Preferred Lab: [facility], Stop date 11/29/21 4:00:00 EDT(Complete) Other status: CBC,11/29/21 5:01:00 EDT, Next AM Draw (one day only), Blood, Once, Preferred Lab: [facility], Stop date 11/29/21 4:00:00 EDT(Complete) Ordered: Communication Order (scheduled),11/29/21 9:18:00 EDT, Once, 11/29/21 9:18:00 EDT, Temporary pacer wires removed at 8:30 AM. Patient may be discharged to [facility] after 12:30 PM. Discontinued: Coreg,Start: 11/28/21 8:00:00 EDT, Dose = 12.5 mg, = 1 tab(s), Oral, BIDM, Hold if SBP (mmHg) < 90, Hold if HR (bpm) < 60, 11/28/21 7:14:00 EDT Ordered: Coreg,Start: 11/29/21 8:00:00 EDT, Dose = 25 mg, = 1 tab(s), Oral, BIDM, Hold if SBP (mmHg) < 90, Hold if HR (bpm) < 60, 11/29/21 7:23:00 EDT Ordered: Coreg 25 mg oral tablet,Dose : 25 mg = 1 tab(s), Oral, BIDM, # 60 tab(s), 3 Refill(s) Ordered: Discharge,11/29/21 9:18:00 EDT, Discharged to: [facility] Ordered: Discharge Blood Glucose Monitoring,When to Test: Before each meal and at bedtime Ordered: Discontinue Order,11/29/21 9:18:00 EDT, Once, Discontinue left subclavian triple-lumen 1 hour prior to discharge, 11/29/21 9:18:00 EDT Modified: KCL,Start: 11/24/21 8:00:00 EDT, Dose = 20 mEq, = 1 tab(s), Oral, BID, with meal(s), 0, 11/24/21 7:56:00 EDT Ordered: Surfak Stool Softener,Dose : 240 mg = 1 cap(s), Oral, BID, PRN as needed for constipation,0 Refill(s) Ordered: Transfer of Care Activity,Other, No lifting greater than 10 pounds, no tub baths or swimming, no driving x6 weeks; may shower, 11/29/21 9:18:00 EDT Ordered: Transfer of Care Admission Level of Care,Level of Care SNF, 11/29/21 9:18:37 EDT Ordered: Transfer of Care Code Status,Full Code, Constant Order Ordered: Transfer of Care Communication Order,Expect less than 30 day stay., 11/29/21 9:18:37 EDT Ordered: Transfer of Care Communication Order,Midsternal chest padmini will be removed at office visit on 12/05/2021, 11/29/21 9:28:08 EDT Ordered: Transfer of Care Communication Order,Please wear a bra or or binder when laying down, may remove when sitting up in chair., 11/29/21 9:18:37 EDT Ordered: Transfer of Care Diet,Type of Diet: Cardiac, Diet Restrictions: Cardiac diet Low cholesterol Low sodium, Calories Permitted: 1800 kcal, 11/29/21 9:18:00 EDT Ordered: Transfer of Care Labwork,CBC, Acute blood loss anemia, CBC weekly and as needed, 11/29/21 9:18:00 EDT Ordered: Transfer of Care Labwork,BMP, Electrolyte imbalance, BMP weekly and as needed, 11/29/21 9:18:00 EDT Ordered: Transfer of Care Labwork,BMP, Electrolyte imbalance, follow-up within: 1 week, Results Notify to: POLLY PHILIPPE MD, BMP to be drawn prior to office visit on 12/05/2021, send results to Dr. Philippe, 11/29/21 9:18:00 EDT Ordered: Transfer of Care OT,Your therapy ordered is: OT, Reason for therapy: Generalized weakness,11/29/21 9:18:00 EDT Ordered: Transfer of Care Orders Electronically Signed By,11/29/21 9:18:00 EDT, POLLY PHILIPPE MD Ordered: Transfer of Care Oxygen Therapy,Oxygen (CONTINUOUS), Nasal Cannula, 1.5 liters per minute,99 month(s), 11/29/21 9:18:00 EDT Ordered: Transfer of Care PT,Your therapy ordered is: PT, Reason for therapy: Generalized weakness,11/29/21 9:18:00 EDT Ordered: Transfer of Care Prognosis,Good, Patient Aware: Yes Ordered: Transfer of Care Radiology,Chest x-ray, Pleural effusions, Chest x-ray weekly and as needed, 11/29/21 9:18:00 EDT Ordered: Transfer of Care Radiology,PA and lateral chest x-ray, Pleural effusions, follow-up within: 1 week, Results Notify to: POLLY PHILIPPE MD, Please present to [facility] department 1 hour prior to office visit on 12/05/2021 for chest x-ray., 11/29/21 9:18:00 EDT Ordered: Transfer of Care Rehab Potential,Rehab potential good, 11/29/21 9:18:37 EDT Ordered: Transfer of Care Urinary Catheter Insertion/Care,Indwelling, Routine care per facility guidelines; Lagos catheter inserted on 11/28/2021., 11/29/21 9:18:37 EDT Ordered: Transfer of Care Weight Order,When to Weigh: Everyday, Report any changes of 2 lbs in 24 hours or 3 lbs in [address] Philippe. Ordered: Transfer of Care Wound Care,Dressing Type: Dry sterile drsg, Sternum, Change Dressing: daily, Please wash midsternal chest incision with soap and water daily, pat dry, keep covered with dry sterile dressing while wearing bra or breast support, 11/29/21 9:18:00 EDT Ordered: Transfer of Care Wound Care,Dressing Type: Open to Air, Leg, lower right, Change Dressing:daily, Wash right leg surgical incisions with soap and water daily, pat dry, keep open to air, 11/29/21 9:18:00 EDT Ordered: acetaminophen,Dose : 650 mg = 2 tab(s), Oral, q4h, PRN Pain, scale 1-6, 0 Refill(s) Ordered: bumetanide 2 mg oral tablet,Dose : 4 mg = 2 tab(s), Oral, Daily, 4 mg every morning., # 60tab(s), 0 Refill(s) Other status: enoxaparin,Start: 11/25/21 14:00:00 EDT, Dose = 40 mg, = 0.4 mL, Subcutaneous, qDay, 0, 11/25/21 14:00:00 EDT(Suspend) Ordered: potassium chloride 20 mEq oral tablet, extended release,Dose : 20 mEq = 1 tab(s), Oral, BID, # 60 tab(s), 0 Refill(s) End of Orders Hospital Course This is a 71-year-old female with past medical history of CAD status post PCI in 2016, hypothyroidism, hypertension, hyperlipidemia, irritable bowel syndrome, diabetes, history of DVT, history of tobacco use (quit 6 years ago), history of GI bleeds requiring blood transfusions, and obesity. 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 Jewell in [place] which revealed an EF of 55% with 70% stenosis of the left main and a patent stent in her right coronary artery. Shewas seen and evaluated by Dr. Philippe. On November 23, 2021, she underwent a two-vessel coronary artery bypass grafting using ADAN to LAD with a reverse saphenous vein, aortocoronary graft to the firstobtuse marginal coronary artery. She tolerated the surgery well and was was transferred to cardiovascular ICU in stable condition. Briefly required nitroprusside drip postoperatively for blood pressure control. Liberated from mechanical ventilator operative night. Postextubation arterial blood gases revealed elevated CO2 levels in the 50s with pHs 7.2-7.3. Placed on BiPAP. POD #1: Remains on BiPAP. CO2 remains elevated. Consult to pulmonary. Pulmonary suspecting bronchospasms and started budesonide and duo nebs. nitroprusside drip has been weaned off. [facility] consulted for diabetic management. PT/OT consulted. Start carvedilol 3.125 mg twice daily, Bumex 2 mg twice daily, and potassium 3 times daily. Keep in ICU today. POD #2: WBC increased to 18.4. Afebrile SPO2 90 to 92% on 2 L nasal cannula. Patient did wear BiPAP for part of night last evening. Chest x-ray showing persistent diffuse interstitial prominence with bibasilar patchy opacities, most likely pulmonary edema.Continue chest tubes. Keep in ICU to monitor respiratory status for another 24 hours. POD #3: Patient has been incontinent of urine and complains of dysuria. Post void residual this morning 853mL. Wewill insert indwelling Lagos catheter, obtain urinalysis and urine culture, and consult [facility]. WBC 20.3 this morning. Discontinue A-line. Keep in ICU. Postop day #4. Transfer to stepdown. Aggressive pulmonary toilet. Wean O2. Voiding trial prior to discharge per urology. WBC today 19.1. Afebrile. Urine culture negative to date. No obvious signs of infection noted. [1] POD #5: Patient complains of nausea and diarrhea this morning which she contributes to too many morning pills. Reports a good appetite. WBC 14.9. Patient is afebrile. Urine culture negative. SPO2 94% on 1 L nasal cannula. Wean oxygen to maintain SPO2 92% or higher. Increase carvedilol to 12.5 mg twice daily. Discont inue Lagos catheter today for an attempt a trial void. Bladder scan in 4 hours. We will replace indwelling Lagos catheter if bladder scan is greater than 200 cc. Likely discharge to [facility] tomorrow. [1]POD #6: Patient feels much better today. Denies any nausea. She is anxious to leave today. SPO2 93 to 95% on 1.5 L nasal cannula (87% on room air). CBC and BMP reviewed with Dr. Philippe as well as chest x-ray. Patient is cleared to be discharged to [facility] per Dr. Philippe. We will increase carvedilol to 25 mg twice daily prior to discharge. Patient will be discharged on Bumex 4 mg every morning and KCl 20 mEq twice daily. Patient will follow-up with cardiothoracic office next Saturday withchest x-ray, BMP, and staple removal. Patient will need an outpatient sleep study. Patient will also be discharged to facility with indwelling Lagos catheter in place and will need to follow-up with the [facility] for possible trial void versus catheter change. I did extensively discussed withthe patient the importance of using a bra or breast support especially when laying down. She currently has a binder on and states that she will wear a bra when she returns home without underwire. I did discuss with her that she will need to keep her midsternal chest incision covered with a dry sterile dressing while wearing breast support/bra. She verbalizes understanding. Allergies Invokana (Stomach Pains, Diarrhea) Statins Trulicity alogliptin (Hives) aspirin (blood clots) glipiZIDE extended release levothyroxine (Rash, Diarrhea) metFORMIN (Diarrhea) penicillin (Swelling) Procedures PROCEDURE: 1. Intraoperative epiaortic ultrasound guidance for safer aortic cannulation (images saved). 2. Two-vessel coronary artery bypass grafting using left internal mammary artery to the left anterior descending coronary artery with a reverse saphenous vein, aortocoronary graft to the first obtusemarginal coronary artery. [2] Consults Consult to [facility] - Ordered -- 11/24/21 6:54:00 EDT, Diabetic management, Hgb A1c 9.7%, glucoses 65-183, GAGE CHIRINOS MD. Consult to Cardiac Rehabilitation - Ordered -- 11/24/21 8:17:00 EDT, CABG Consult to Diabetes Education (Consult to Diabetic Nurse Specialist) - Ordered -- 11/24/21 13:16:00 EDT, Complications Teaching, Once Consult to Physician - Ordered -- 11/24/21 7:57:00 EDT, LOU VINES MD, Routine, Post-op hypercapnia on Bipap Consult to Physician - Ordered -- 11/26/21 7:14:00 EDT, SAQIB FRASER MD, Routine, post-op urinary retention. Imaging Results and Diagnostics XR Chest 2 Views Result Date: November 29, 2021 Verified By: CLINICAL STATEMENT: IMPRESSION: XR Chest 2 Views Result Date: November 28, 2021 Verified By: NUNU FORREST MD CLINICAL STATEMENT: IMPRESSION: Hazy airspace disease at the lung bases with small bilateral effusions.Bibasilar hazy airspace disease. Physical Exam Vitals and Measurements T: 37 C (Oral) TMIN: 36.7 C (Oral) TMAX: 37.1 C (Oral) HR: 98(Monitored) RR: 18 BP: 114/63 SpO2: 94% WT: 94.6 kg Weight Current Weight Dosing Weight: 102.3 kg (11/23/21) Current Weight: 94.6 kg (11/29/21) Current Weight: 101.2 kg (11/27/21) Constitutional: Alert, oriented, appropriate HEENT: Normocephalic, atraumatic Lungs: Unlabored respirations, lung sounds diminished bilaterally, SPO2 93 to 95% on 1.5 L nasal cannula (87% on room air) Heart: Normal sinus rhythm/sinus tachycardia, S1-S2, no murmur, positive pericardial friction rub, heart rate ranging 88-1 02 Abdomen: Soft, nontender, bowel sounds present, positive flatus, bowel movement 11/28/2021 : Indwelling Lagos catheter in place draining clear yellow urine (output 1800 cc over last 24 hours and 900 cc over the last 8 hours) Extremities: Well perfused, pedal pulses +2 bilaterally, +1 bilateral lower leg edema Integumentary: Mediastinal chest incision covered with dressing, padmini intact, no drainage, edgeswell approximated; lower chest previous chest tube sites open to air, edges , no drainage;right lower leg surgical incisions open air, edges well approximated, no drainage, diffuse ecchymosis of right upper thigh Disposition: [facility] Pending Labs and Studies Complete Blood Count WBC: 16.8 10^3/mcL High (11/29/21 04:54:00) RBC: 3.82 10^6/mcL Low (11/29/21 04:54:00) Hgb: 11.4 G/dL Low (11/29/21 04:54:00) Hct: 34.6 % (11/29/21 04:54:00) MCV: 90.5 fL (11/29/21 04:54:00) MCH: 29.7 pg (11/29/21 04:54:00) MCHC: 32.9 G/dL (11/29/21 04:54:00) RDW: 14.2 % (11/29/21 04:54:00) Platelet: 365 10^3/mcL (11/29/21 04:54:00) MPV: 8.1 fL (11/29/21 04:54:00) Comprehensive Metabolic Profile Glucose Level: 168 mg/dL High (11/29/21 04:54:00) Sodium Level: 134 mEq/L Low (11/29/21 04:54:00) Potassium Level: 3.9 mEq/L (11/29/21 04:54:00) Chloride: 92 mEq/L Low (11/29/21 04:54:00) CO2: 34 mEq/L High (11/29/21 04:54:00) Creatinine Lvl (s): 0.82 mg/dL (11/29/21 04:54:00) BUN/Creatinine Ratio: 23.2 ratio High (11/29/21 04:54:00) Calcium Lvl: 9.4 mg/dL (11/29/21 04:54:00) Code Status Code Status - Ordered -- 11/23/21 15:25:00 EDT, Full Code, Constant Order Admission Date 11/23/2021 Discharge Date 11/29/2021 Patient Instructions - Use incentive spirometer and Acapella 10 times every hour while awake -Obtain weight daily and keep a log -Bring weight log to office visit on 12/05/2021 -Please notify cardiothoracic surgery office if you gain 2 pounds in 1 day or 3 pounds in 1 week -Elevate legs above the level of the heart for minimum of 20 minutes 3 times daily -May shower with indwelling Lag[place] catheter in place -Notify cardiothoracic office if you develop a fever of 101 F or higher, develop sudden onset of shortness of breath, develop pain uncontrolled by pain medications, and/or develop puslike drainage from incision site -Please wear bra or breast support while lying down -Keep midsternal chest incision covered with gauze dressing while wearing a bra or breast support. Medications New Prescription [id number] Milligram by mouth every 4 hours as needed Pain, scale 1-6. bumetanide (bumetanide 2 mg oral tablet)2 tab(s) by mouth every day for 30 Days. 4 mg every morning.. Refills: 0. docusate (Surfak Stool Softener)240 Milligram by mouth two (2) times a day as needed as needed for constipation. glucagon (GlucaGen)1 Milligram Intramuscular As Directed as needed Hypoglycemia. insulin glargine (Lantus 100 units/mL10 ml vial solution)25 unit(s) Subcutaneous (INT) daily at bedtime. insulin lispro (HumaLOG) (HumaLOG 100 units/mL subcutaneous solution)18 unit(s) Subcutaneous beforebreakfast. insulin lispro (HumaLOG) (HumaLOG 100 units/mL subcutaneous solution)Give 0-10 units/dose Subcutaneous four (4) times daily-before meals and at bedtime. insulin lispro (HumaLOG) (HumaLOG 100 units/mL subcutaneous solution)15 unit(s) Subcutaneous with lunch & supper. potassium chloride (potassium chloride 20 mEq oral tablet, extended release)1 tab(s) by mouth two (2) times a day for 30 Days. Refills: 0. traMADol (traMADol 50 mg oral tablet)1 tab(s) by mouth every 6 hours as needed Pain, scale 7-10 for7 Days. Refills: 0. Changed carvedilol (Coreg 25 mg oral tablet)1 tab(s) by mouth twice daily with meals. Refills: 3. Unchanged thyroid desiccated (thyroid desiccated 60 mg oral tablet)1 tab(s) by mouth once a day. Discontinued insulin aspart-insulin aspart protamine (Novolog Mix 70/30) (NovoLOG Mix 70/30 FlexPen 3 mL Pen)inject 24 units subcutaneously twice a day before meals. Refills: 3. nitroGLYcerin (nitroglycerin 0.4 mg sublingual tablet)1 tab(s) under the tongue every 5 minutes as needed as needed for chest pain. Refills: 3. I have reviewed the [place] Automated Rx Reporting System (OARRS) report for this patient for refill pattern and other prescriber involvement as part of the appropriate surveillance for the provision ofacute and chronic controlled medications. The report was requested and reviewed on the date of thisentry, and was considered in the prescribing process. Follow Up Follow Up with JUAN JUAREZ When 12/05/2021 10:00 AM EDT Why: This will be with Dr. Philippe's nurse practitioner. Please present to [facility] department 1 hour prior to this visit for chest x-ray. Chest padmini will be removed at this visit. Where: [address] [facility] A[address]OB[address] [facility] [place] [address]- Follow Up with Discharge to [facility] LOC [phone] When Within 1-2 days Follow Up with GAGE CHIRINOS MD, [facility] When Why: Please call [facility]anna for follow-up appointment in 4-6 weeks (re: diabetes), can schedule at [facility]. Bring blood glucose meter with you to your appointment. Where: [address] [place] [address] [phone] Follow Up with SAQIB FRASER MD, [facility], Urology Service When Within 1-2 days Why: Please call to arrange a hospital follow-up and possible trial void. Where: [address] [facility] [address] [place] [address]- [phone] Follow Up with HARISH NOEL MD When Within 1-2 days Why: Please call to arrange a hospital follow-up. Where: [address] [facility] [address] [place] [address]- [phone] Follow Up with free When Why: Follow up with primary care to have a Sleep Study ordered Where: Follow Up with Cardiac Rehab When Why: The Cardiac Rehab department will call you in 6 weeks to schedule you for phase 2. Informationgiven about cardiac rehab. If you have any questions please call [phone]. Where: [address] [facility] [place] [address]- Follow Up Appointments Transfer of Care OT - Ordered -- Your therapy ordered is: OT, Reason for therapy: Generalized weakness, 11/29/21 9:18:00 EDT Transfer of Care PT - Ordered -- Your therapy ordered is: PT, Reason for therapy: Generalized weakness, 11/29/21 9:18:00 EDT Follow Up Labs/Studies Discharge Labs Transfer of Care Labwork - Ordered -- CBC, Acute blood loss anemia, CBC weekly and as needed, 11/29/21 9:18:00 EDT Transfer of Care Labwork - Ordered -- BMP, Electrolyte imbalance, BMP weekly and as needed, 11/29/21 9:18:00 EDT Transfer of Care Labwork - Ordered -- BMP, Electrolyte imbalance, follow-up within: 1 week, Results Notify to: POLLY PHILIPPE MD, BMP to be drawn prior to office visit on 12/05/2021, send results to Dr. Philippe, 11/29/21 9:18:00 EDT Discharge Studies Transfer of Care Radiology - Ordered -- Chest x-ray, Pleural effusions, Chest x-ray weekly and as needed, 11/29/21 9:18:00 EDT Transfer of Care Radiology - Ordered -- PA and lateral chest x-ray, Pleural effusions, follow-up within: 1 week, Results Notify to: POLLY PHILIPPE MD, Please present to [facility] department 1 hour prior to office visit on 12/05/2021 for chest x-ray., 11/29/21 9:18:00 EDT Discharge Diet Transfer of Care Diet - Ordered -- Type of Diet: Cardiac, Diet Restrictions: Cardiac diet Low cholesterol Low sodium, Calories Permitted: 1800 kcal, 11/29/21 9:18:00 EDT Discharge Activity Transfer of Care Activity - Ordered -- Other, No lifting greater than 10 pounds, no tub baths or swimming, no driving x6 weeks; may shower, 11/29/21 9:18:00 EDT Condition on Discharge Stable Discharge Disposition [facility] Information Provided To Patient [1] Progress Note; NAT DUNN APRN-QUARRY BOSS 11/28/2021 10:10 EDT [2] OPERATIVE NOTE; POLLY PHILIPPE MD 11/23/2021 00:00 EDT Digitally Signed by NAT DUNN APRN-QUARRY BOSS on 11/29/2021 02:50 PM [phone] Discharge Instructions Thank you for allowing [facility] to assist you with your healthcare needs. The following is importantdischarge information regarding your hospital visit. 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/23/21, EF55% Acute blood loss anemia Diabetes mellitus Hgb A1c 9.7% High blood pressure Hyperlipemia Statin intolerance Hypothyroid CKD stage 3 IBS (irritable bowel syndrome) History of DVT (deep vein thrombosis) History of tobacco use History of gastrointestinal bleeding Hypercapnia Leukocytosis Postoperative urinary retention Dysuria Incontinent of urine Acute postoperative pain What to do next Instructions From Your Doctor - Use incentive spirometer and Acapella 10 times every hour while awake -Obtain weight daily and keep a log -Bring weight log to office visit on 12/05/2021 -Please notify cardiothoracic surgery office if you gain 2 pounds in 1 day or 3 pounds in 1 week -Elevate legs above the level of the heart for minimum of 20 minutes 3 times daily -May shower with indwelling Lag[place] catheter in place -Notify cardiothoracic office if you develop a fever of 101 F or higher, develop sudden onset of shortness of breath, develop pain uncontrolled by pain medications, and/or develop puslike drainage from incision site -Please wear bra or breast support while lying down -Keep midsternal chest incision covered with gauze dressing while wearing a bra or breast support. Scheduled Follow-Up Appointments Appointment Type When With Where Contact InformationCTS OV Post Op 12/05/2021 10:00 AM EDT JUAN JUAREZ [facility] Cardiothoracic Surgery Follow Up Appointments Follow Up with JUAN JUAREZ When 12/05/2021 10:00 AM EDT Why: This will be with Dr. Philippe's nurse practitioner. Please present to [place] radiology department 1 hour prior to this visit for chest x-ray. Chest padmini will be removed at this visit. Where: [address] [facility] [place] [address]- Follow Up with Discharge to [facility] LOC [phone] When Within 1-2 days Follow Up with GAGE CHIRINOS MD, [facility] When Why: Please call rianna for follow-up appointment in 4-6 weeks (re: diabetes), can schedule at [place] office. Bring blood glucose meter with you to your appointment. Where: [address] [place] [address] [phone] Follow Up with SAQIB FRASER MD, [facility], Urology Service When Within 1-2 days Why: Please call to arrange a hospital follow-up and possible trial void. Where: [address] [facility] [address] [facility] [place] [address]- [phone] Follow Up with HARISH NOEL MD When Within 1-2 days Why: Please call to arrange a hospital follow-up. Where: [address] [facility] [address] [place] [address]- [phone] Follow Up with free When Why: Follow up with primary care to have a Sleep Study ordered Where: Follow Up with Cardiac Rehab When Why: The Cardiac Rehab department will call you in 6 weeks to schedule you for phase 2. Informationgiven about cardiac rehab. If you have any questions please call [phone]. Where: [address] [facility] [place] [address]- The Following Activity and Diet Have Been Ordered for You Transfer of Care Activity - Ordered -- Other, No lifting greater than 10 pounds, no tub baths or swimming, no driving x6 weeks; may shower, 11/29/21 9:18:00 EDT Transfer of Care Diet - Ordered -- Type of Diet: Cardiac, Diet Restrictions: Cardiac diet Low cholesterol Low sodium, Calories Permitted: 1800 kcal, 11/29/21 9:18:00 EDT The Following Equipment Has Been Ordered for You Discharge Home Equipment Discharge Blood Glucose Monitoring - Ordered -- When to Test: Before each meal and at bedtime Transfer of Care Urinary Catheter Insertion/Care - Ordered -- Indwelling, Routine care per facility guidelines; [place] catheter inserted on 11/28/2021., 11/29/21 9:18:37 EDT Transfer of Care Wound Care - Ordered -- Dressing Type: Dry sterile drsg, Sternum, Change Dressing: daily, Please wash midsternal chest incision with soap and water daily, pat dry, keep covered with dry sterile dressing while wearing braor breast support, 11/29/21 9:18:00 EDT Transfer of Care Wound Care - Ordered -- Dressing Type: Open to Air, Leg, lower right, Change Dressing: daily, Wash right leg surgical incisions with soap and water daily, pat dry, keep open to air, 11/29/21 9:18:00 EDT The Following Treatments Have Been Ordered for You Discharge Labs Transfer of Care Labwork - Ordered -- CBC, Acute blood loss anemia, CBC weekly and as needed, 11/29/21 9:18:00 EDT Transfer of Care Labwork - Ordered -- BMP, Electrolyte imbalance, BMP weekly and as needed, 11/29/21 9:18:00 EDT Transfer of Care Labwork - Ordered -- BMP, Electrolyte imbalance, follow-up within: 1 week, Results Notify to: POLLY PHILIPPE MD, BMP to be drawn prior to office visit on 12/05/2021, send results to Dr. Philippe, 11/29/21 9:18:00 EDT Discharge Radiology Transfer of Care Radiology - Ordered -- Chest x-ray, Pleural effusions, Chest x-ray weekly and as needed, 11/29/21 9:18:00 EDT Transfer of Care Radiology - Ordered -- PA and lateral chest x-ray, Pleural effusions, follow-up within: 1 week, Results Notify to: POLLY PHILIPPE MD, Please present to [place] radiology department 1 hour prior to office visit on 12/05/2021 for chest x-ray., 11/29/21 9:18:00 EDT Other Therapies Discharge Blood Glucose Monitoring - Ordered -- When to Test: Before each meal and at bedtime Transfer of Care OT - Ordered -- Your therapy ordered is: OT, Reason for therapy: Generalized weakness, 11/29/21 9:18:00 EDT Transfer of Care PT - Ordered -- Your therapy ordered is: PT, Reason for therapy: Generalized weakness, 11/29/21 9:18:00 EDT Post Acute Orders Transfer of Care Admission Level of Care - Ordered -- Level of Care SNF, 11/29/21 9:18:37 EDT Transfer of Care Code Status - Ordered -- Full Code, Constant Order Transfer of Care Communication Order - Ordered -- Expect less than 30 day stay., 11/29/21 9:18:37 EDT Transfer of Care Communication Order - Ordered -- Please wear a bra or or binder when laying down, may remove when sitting up in chair., 11/29/21 9:18:37 EDT Transfer of Care Labwork - Ordered -- CBC, Acute blood loss anemia, CBC weekly and as needed, 11/29/21 9:18:00 EDT Transfer of Care Labwork - Ordered -- BMP, Electrolyte imbalance, BMP weekly and as needed, 11/29/21 9:18:00 EDT Transfer of Care Labwork - Ordered -- BMP, Electrolyte imbalance, follow-up within: 1 week, Results Notify to: POLLY PHILIPPE MD, BMP to be drawn prior to office visit on 12/05/2021, send results to Dr. Philippe, 11/29/21 9:18:00 EDT Transfer of Care Orders Electronically Signed By - Ordered -- 11/29/21 9:18:00 EDT, POLLY PHILIPPE MD Transfer of Care Oxygen Therapy - Ordered -- Oxygen (CONTINUOUS), Nasal Cannula, 1.5 liters per minute, 99 month(s), 11/29/21 9:18:00 EDT Transfer of Care Prognosis - Ordered -- Good, Patient Aware: Yes Transfer of Care Rehab Potential - Ordered -- Rehab potential good, 11/29/21 9:18:37 EDT Transfer of Care Urinary Catheter Insertion/Care - Ordered -- Indwelling, Routine care per facility guidelines; [place] catheter inserted on 11/28/2021., 11/29/21 9:18:37 EDT Someone Will Contact You Regarding These Home Health Referrals No home referrals have been ordered for you. No one will call you. Allergies Invokana (Stomach Pains, Diarrhea) Statins Trulicity alogliptin (Hives) aspirin (blood clots) glipiZIDE extended release levothyroxine (Rash, Diarrhea) metFORMIN (Diarrhea) penicillin (Swelling) Medications Please ask your primary doctor or pharmacist before taking any other medication not listed, including over the counter drugs, herbal medications, vitamins and or supplements as they may interact withyour home medications. What How Much When Why Instructions Last Dose New acetaminophen 650 Milligram by mouth Every 4 hours as needed for Pain, scale 1-6 New bumetanide (bumetanide 2 mg oral tablet) 2 tab(s) by mouth Every day Duration: 30 Days 4 mg every morning. Printed Prescription New docusate (Surfak Stool Softener) 240 Milligram by mouth Two (2) times a day as needed for as needed for constipation New glucagon (GlucaGen) 1 Milligram Intramuscular As Directed as needed for Hypoglycemia New insulin glargine (Lantus 100 units/ mL10 ml vial solution) 25 unit(s) Subcutaneous (INT) Daily at bedtime New insulin lispro (HumaLOG) (HumaLOG 100 units/ mL subcutaneous solution) 18 unit(s) Subcutaneous Before breakfast hold if npo New insulin lispro (HumaLOG) (HumaLOG 100 units/ mL subcutaneous solution) Give 0-10 units/dose Subcutaneous Four (4) times daily-before meals and at bedtime New insulin lispro (HumaLOG) (HumaLOG 100 units/ mL subcutaneous solution) 15 unit(s) Subcutaneous With lunch & supper hold if npo New potassium chloride (potassium chloride 20 mEq oral tablet, extended release) 1 tab(s) by mouth Two (2) times a day Duration: 30 Days Printed Prescription New traMADol (traMADol 50 mg oral tablet) 1 tab(s) by mouth Every 6 hours as needed for Pain, scale 7-10 Acute postoperative pain Duration: 7 Days Printed Prescription Changed carvedilol (Coreg 25 mg oral tablet) 1 tab(s) by mouth Twice daily with meals Printed Prescription Unchanged thyroid desiccated (thyroid desiccated 60 mg oral tablet) 1 tab(s) by mouth Once a day What How Much When Comments Stop Taking insulin aspart-insulin aspart protamine (Novolog Mix 70/ 30) (NovoLOG Mix 70/ 30 FlexPen 3 mL Pen) See instructions inject 24 units subcutaneously twice a day before meals Stop Taking nitroGLYcerin (nitroglycerin 0.4 mg sublingual tablet) 1 tab(s) under the tongue Every 5 minutes as needed for as needed for chest pain Please take this list to your next doctor s visit. Bring all medications you take, including over the counter medications, herbals and other supplements with you to your doctor s visit. Patients and families are reminded to discard old lists and to update any records with all medication providers or retail pharmacies. Education Materials Daily Weight Record It is important to weigh yourself daily. To do this: Make sure you use a reliable scale. Use the same scale each day. Keep this daily weight chart near your scale. Weigh yourself each morning at the same time. Before weighing yourself: ? Take off your shoes. ? Make sure you are wearing the same amount of clothing each day. Write down your weight in the spaces on the form. Compare today's weight to yesterday's weight. Bring this form with you to your follow-up visits with your health care provider. Call your health care provider if you have concerns about your weight, including rapid weight gain or loss. Date: Weight: Date: Weight: Date: Weight: Date: Weight: Date: Weight: Date: Weight: Date: Weight: Date: Weight: Date: Weight: Date: Weight: Date: Weight: Date: Weight: Date: Weight: Date: Weight: Date: Weight: Date: Weight: Date: Weight: Date: Weight: Date: Weight: Date: Weight: Date: Weight: Date: Weight: Date: Weight: Date: Weight: Date: Weight: Date: Weight: Date: Weight: Date: Weight: Date: Weight: Date: Weight: Date: Weight: Date: Weight: Date: Weight: Date: Weight: Date: Weight: Date: Weight: Date: Weight: Date: Weight: Date: Weight: Date: Weight: Date: Weight: Date: Weight: Date: Weight: Date: Weight: Date: Weight: Date: Weight: Date: Weight: Date: Weight: Date: Weight: Date: Weight: This information is not intended to replace advice given to you by your health care provider. Make sure you discuss any questions you have with your health care provider. Document Released: 05/16/2007 Document Revised: 03/03/2018 Document Reviewed: 03/03/2018 Elsevier Patient Education 2020 [employer] Carbohydrate Counting for Diabetes Mellitus, Adult Carbohydrate counting is a method of keeping track of how many carbohydrates you eat. Eating carbohydrates naturally increases the amount of sugar (glucose) in the blood. Counting how many carbohydrates you eat helps keep your blood glucose within normal limits, which helps you manage your diabetes(diabetes mellitus). It is important to know how many carbohydrates you can safely have in each meal. This is different for every person. A diet and child nutrition assistant (registered dietitian) can help you make a meal plan and calculate how many carbohydrates you should have at each meal and snack. Carbohydrates are found in the following foods: Grains, such as breads and cereals. Dried beans and soy products. Starchy vegetables, such as potatoes, peas, and corn. Fruit and fruit juices. Milk and yogurt. Sweets and snack foods, such as cake, cookies, candy, chips, and soft drinks. How do I count carbohydrates? There are two ways to count carbohydrates in food. You can use either of the methods or a combination of both. Reading Nutrition Facts on packaged food The Nutrition Facts list is included on the labels of almost all packaged foods and beverages in the [place] It includes: The serving size. Information about nutrients in each serving, including the grams (g) of carbohydrate per serving. To use the Nutrition Facts: Decide how many servings you will have. Multiply the number of servings by the number of carbohydrates per serving. The resulting number is the total amount of carbohydrates that you will be having. Learning standard serving sizes of other foods When you eat carbohydrate foods that are not packaged or do not include Nutrition Facts on the label, you need to measure the servings in order to count the amount of carbohydrates: Measure the foods that you will eat with a food scale or measuring cup, if needed. Decide how many standard-size servings you will eat. Multiply the number of servings by 15. Most carbohydrate-rich foods have about 15 g of carbohydrates per serving. ? For example, if you eat 8 oz (170 g) of strawberries, you will have eaten 2 servings and 30 g of carbohydrates (2 servings x 15 g = 30 g). For foods that have more than one food mixed, such as soups and casseroles, you must count the carbohydrates in each food that is included. The following list contains standard serving sizes of common carbohydrate-rich foods. Each of theseservings has about 15 g of carbohydrates: hamburger bun or [place]er muffin. oz (15 mL) syrup. oz (14 g) jelly. 1 slice of bread. 1 six-inch tortilla. 3 oz (85 g) cooked rice or pasta. 4 oz (113 g) cooked dried beans. 4 oz (113 g) starchy vegetable, such as peas, corn, or potatoes. 4 oz (113 g) hot cereal. 4 oz (113 g) mashed potatoes or of a large baked potato. 4 oz (113 g) canned or frozen fruit. 4 oz (120 mL) fruit juice. 4 6 crackers. 6 chicken nuggets. 6 oz (170 g) unsweetened dry cereal. 6 oz (170 g) plain fat-free yogurt or yogurt sweetened with artificial sweeteners. 8 oz (240 mL) milk. 8 oz (170 g) fresh fruit or one small piece of fruit. 24 oz (680 g) popped popcorn. Example of carbohydrate counting Sample meal 3 oz (85 g) chicken breast. 6 oz (170 g) brown rice. 4 oz (113 g) corn. 8 oz (240 mL) milk. 8 oz (170 g) strawberries with sugar-free whipped topping. Carbohydrate calculation 1. Identify the foods that contain carbohydrates: Rice. Centre. Milk. Strawberries. 2. Calculate how many servings you have of each food: 2 servings rice. 1 serving corn. 1 serving milk. 1 serving strawberries. 3. Multiply each number of servings by 15 servings rice x 15 g = 30 g. 1 serving corn x 15 g = 15 g. 1 serving milk x 15 g = 15 g. 1 serving strawberries x 15 g = 15 g. 4. Add together all of the amounts to find the total grams of carbohydrates eaten: 30 g + 15 g + 15 g + 15 g = 75 g of carbohydrates total. Summary Carbohydrate counting is a method of keeping track of how many carbohydrates you eat. Eating carbohydrates naturally increases the amount of sugar (glucose) in the blood. Counting how many carbohydrates you eat helps keep your blood glucose within normal limits, which helps you manage your diabetes. A diet and child nutrition assistant (registered dietitian) can help you make a meal plan and calculate how many carbohydrates you should have at each meal and snack. This information is not intended to replace advice given to you by your health care provider. Make sure you discuss any questions you have with your health care provider. Document Released: 03/04/2006 Document Revised: 09/26/2017 Document Reviewed: 08/15/2016 [employer] Patient Education 2020 [employer] OPEN HEART SURGERY (Bypass or Valve Surgery) General Guidelines for Care After Surgery Please read the instructions below and refer to it during the next few weeks. Recovering from surgery is different for everyone. Some people feel great after 3 or 4 weeks and others take longer depending on their condition before the surgery. These are general guidelines on how to care for yourself but always follow your doctor s instructions. If you have questions or problems after you go home, please call your doctor. MEDICINES You have the list of medicine you need to take at home. Be sure you understand this list and keep acopy with you at all times. Never add or stop medicine unless you check with your doctor first. Call the doctor if you have any of the following problems: If you start throwing up or have stomach pain or diarrhea If you feel dizzy or lightheaded when you stand up If you are confused or have trouble walking If you feel like your heart is racing and beating fast or if you feel like it is beating too slow If you get a rash If you notice bleeding or lots of bruising If you are taking a blood thinner such as warfarin after having valve surgery, please read the handout that has been given to you by the nurse. PAIN AFTER SURGERY You might feel some pain after your heart surgery. Please take your pain medicine if you need it following the directions on the bottle. If your pain becomes worse or if you are having trouble breathing, call your surgeon. As you heal and the pain begins to go away, take your pain medicine less often Pain medicine will sometimes cause you to become constipated. It is OK to take an over the counter stool softener. Eating lots of fruit and vegetables can also help with constipation. CARE OF YOUR INCISIONS Pay attention to your incisions and shower every day after you go home. Some swelling, bruising or redness is normal and will get better with time. Do not take a bath until all of your incisions are healed. Wash the incisions gently with antibacterial soap and water in the shower Use a clean washcloth every day Wash your chest incision first, then wash any arm incision, and last wash leg incisions Wash the rest of your body after cleaning all of your incisions Never use any cream or lotion on your incisions until they are healed all the way. Keep your incisions clean and dry Do not cover the incision with a dressing unless you are having drainage If you have padmini, they will be taken out at the office visit You might notice some swelling or a lump at the top of the chest incision, but this is normal. [place]our surgeon right away if you notice clicking in your chest. Your legs might swell after your surgery so follow these tips: Keep legs elevated when sitting. As a rule, it is best to elevate them above the level of your heart. For instance, if you are lying flat on a sofa, place your legs up on the arm of the sofa. Do not cross your legs. Wear your elastic stockings during the day for 4 weeks. Put them on before you get out of bed in the morning and then take them off at night. These will help keep your legs from swelling. ACTIVITY It is important to keep moving after heart surgery, but you will need to take rest periods throughout the day. Every day, increase your activity as you are able. Walk as much as possible, and gradually increase your distance every day. It will be normal to be sore for a couple of weeks after surgery. Get medical attention if your condition seems to be getting worse instead of better No heavy housework or heavy work outdoors You may use the stairs as tolerated Avoid lifting anything greater than 10 pounds Avoid any pushing or pulling with your arms. Avoid overexertion and take rest periods when you get tired Do not drive until your doctor tells you it is OK, typically 4 weeks. It is fine to go upstairs but take it slow and do not pull yourself up with the handrail. Avoid opening windows and opening tight jar lids. Do not bear down with bowel movements and do not hold your breath. Check with the surgeon before returning to work. Waiting 1-3 weeks is recommended for sexual intercourse. When you can walk briskly or climb 2 flights of stairs without pain or shortness of breath, you may be ready for sex. WEIGHT Weigh yourself every morning and write it down on paper. Use the same scale and weigh at the same time each day. Tell your doctor if you gain 2 pounds or more in one day. EATING HEALTHY Your doctor wants you to follow a heart healthy diet which is low in salt and low in fat. Your nurse has given you a book all about the diet you will need to follow. If you are diabetic or overweight, you will be given a calorie restriction too. If constipation is a problem, add more bran or fiber to your diet and you may take a mild rlxu-yog-oxuuxas laxative like Milk of Magnesia . CARDIAC REHABILITATION Getting involved in cardiac rehab after your heart surgery is the best thing that you can do to feel better and stronger at a faster rate. The program is medically supervised to help patients recoverand improve mental and physical function. It also helps reduce stress and can decrease your risk ofhaving more heart problems. Your doctor will let you know when you can begin the program. SMOKING Give up smoking after heart surgery or it may cancel out the value of having your surgery. It may also delay the healing process. If you need help to quit, please call your surgeon or your heart doctor. [place] also has a free stop smoking program called Give it Up and if you want to attend, pleasecall [phone] ([phone]). Call the Surgeon If your incisions are red, oozing pus, or bleeding or if the edges are Call if there is a clicking in your sternum. Call if you are more short of breath. Call if you have dizziness Call if you have a fever of 101 or higher. Call if you have more ankle swelling, pain in your leg, or pain in your calf. Call the Heart Doctor (Addiction Treatment Counselor) If your heart beats are irregular or are fast. If you have any questions about your medicine. If you gain 2 or more pounds in one day. If you feel dizzy or lightheaded when you first stand up. If you have any questions about getting help at home after you are discharged. If you have painful, frequent or bloody urination. GET IMMEDIATE MEDICAL HELP IF YOU HAVE: Chest pain, jaw pain, sweating, dizziness or severe shortness of breath, you could be having a heart attack. Please dial 9-1-1 immediately. Additional Information VACCINATE! IT SAVES LIVES! Members of the community who have not yet received the COVID-19 vaccine and would like to receive it can visit one of [facility] vaccine clinics. There are many vaccine clinic locations within the [facility]. For locations and available times, please visit [email or web address] It is important to note that some COVID mobile vaccine clinics are held outdoors and may be canceled in rainy or stormy conditions. To learn more about pediatric vaccinations (ages 5-11), we invite you to visit the [facility] webpage. [email or web address]/pages/[email or web address]-Sztuz-Tjruehkjfag-Sasnqehlnf-Uvtnb-[email or web address] stions.htmlTo learn more about the COVID-19 vaccine, we invite you to visit the [employer] website for a list of frequently asked questions. [email or web address] _[email or web address].pdf [employer] Patient Portal Access Instructions: Stay connected with your healthcare team and access your personal medical information anytime with the [employer] Patient Portal.If you would like a full copy of your medical records, please contact the [facility] Medical Records Department, Saturday through Saturday between 8a.m. and 4:30p.m. Please follow the directions below to access the portal: 1.Access the email account you provided upon registration to the hospital.2.Look for an invitation email from [facility].3.Open the email and access the invitation link: Accept Invitation to [facility].Fill in the required singer to create your account. Sign into [email or web address] with your username and password that you created in the above steps to stay up to date. You can then view a summary of results, a summary of your visits, and the ability to download your summaries to your computer or send the information securely to a physician. Remember that your healthcare information is confidential, so carefully consider who you will allow to register on the [facility] Patient Portal for access to your information. You can also access the [facility] Patient Portal on the [facility]. Simply click on Health Records under [employer] and then click on the [employer] logo. HOW TO SAFELY DISPOSE OF PRESCRIPTION MEDICATIONS Please use one of the following methods to safely dispose of your unused medications. 1.Use a drug disposal kit: the drug disposal pouch allows you to safely discard your old and unuseddrugs. Ask your nurse to give you one when you are discharged.2.Visit a local take-back location: Many local pharmacies and police departments have programs that collect old and unwanted prescriptiondrugs. Call your local pharmacy or go to http://bit.ly/0I2Av0u to find one close to you.3.Make use of household items: Use cat litter or old coffee grounds to dispose medications if other options arenot available. Mix your drugs with these household products, seal them in an airtight container andthrow it into the garbage. Call [facility]: [phone] to be sure your drugs can be disposed of in this way. Some medicines may require a different approach.4.Never flush your medications down the toilet. IF YOU HAVE BEEN PRESCRIBED AN OPIOID FOR PAIN If you have been prescribed an opioid (such as hydrocodone, oxycodone or morphine), it is critical to understand the possible side effects and risks of opioid pain medications. Even when taken as directed, opioids can have several side effects including: Tolerance, meaning you might need to take more of a medication for the same pain relief. Nausea, vomiting and/or constipation. Sleepiness, dizziness, dry mouth, confusion, depression or itching. Physical dependence, meaning you have withdrawal symptoms when a medication is stopped, can develop within a few days. KNOW YOUR RESPONSIBILITIES It is important to know exactly how much and how often to take the opioid pain medications you are prescribed. Never take opioids in higher amounts or more often than prescribed. Do not combine opioids with alcohol or other drugs that cause drowsiness, such as benzodiazepines, also known as benzos, including diazepam and alprazolam, muscle relaxants or sleep aids. Never sell or share prescription opioids. This is illegal. Store opioids in a secure place and out of reach of others (including children, family, friends and visitors). The last page of this document has been signed and retained as a CHART COPY. Signatures Patient Education Materials Form - Daily Weight Record Carbohydrate Counting for Diabetes Mellitus, Adult 8- Open Heart Surgery (Bypass or Valve) 04/2019 (CUSTOM) Medication Leaflets My discharge plan and instructions have been reviewed and explained to me and I,FELICITAS ALCANTARA understand my current condition and have read and understand these discharge instructions. I have received a written copy of the plan/instructions. If I have questions, I am aware that I should contactmy doctor. Patient/Licensed Embalmer Signature: Date/Time: Relationship to Patient: Witness Name/Signature: Date[id number] Note Date of Service 11/29/2021 Temporary A and V pacer wires discontinued at oh 8:30 AM. Patient tolerated well. Patient instructed to remain bedrest for 1 hour. Digitally Signed by NAT DUNN APRN-QUARRY BOSS on 11/29/2021 08:44 AM [id number] Note ORIGINAL EXAMINATION: TWO XRAY VIEWS OF THE CHEST11/29/2021 7:18 am COMPARISON: Chest x-ray November 28, 2021 HISTORY: ORDERING SYSTEM PROVIDED HISTORY: Reason for Exam: Pleural effusions FINDINGS: Left subclavian central venous catheter with the tip projecting in similar position in the SVC. Midline surgical padmini and median sternotomy wires. Stable cardiomegaly. No significant pulmonary vascular congestion. Small left and trace right pleural effusions with adjacent airspace disease. No pneumothorax. No acute osseous abnormality. IMPRESSION: Small left and trace right pleural effusions with adjacent airspace disease. I have personally reviewed the images of this examination and agree with the resident's findings and interpretation. Interpreted by: Antwan Fountain Preliminary Report By: Akua Bejarano Electronically signed By Antwan Fountain Dictated Date: 11/29/2021 8:05:15 AM Prelim Date: 11/29/2021 8:10:22 AM Sign Date: 11/30/2021 12:35:45 AM Ordering Provider: [facility]BEOur [facility] of [facility] [id number] Nurse Progress note Student's documentation was reviewed and all medications were verified prior to administration. Digitally Signed by Windy Jaimes RN on 11/28/2021 06:34 PM [id number] Note Date of Service 11/28/2021 Chief Complaint POD #5 This is a 71-year-old female with past medical history of CAD status post PCI in 2016, hypothyroidism, hypertension, hyperlipidemia, irritable bowel syndrome, diabetes, history of DVT, history of tobacco use (quit 6 years ago), history of GI bleeds requiring blood transfusions, and obesity. 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 Jewell in [place] which revealed an EF of 55% with 70% stenosis of the left main and a patent stent in her right coronary artery. Shewas seen and evaluated by Dr. Philippe. On November 23, 2021, she underwent a two-vessel coronary artery bypass grafting using ADAN to LAD with a reverse saphenous vein, aortocoronary graft to the firstobtuse marginal coronary artery. She tolerated the surgery well and was was transferred to cardiovascular ICU in stable condition. Briefly required nitroprusside drip postoperatively for blood pressure control. Liberated from mechanical ventilator operative night. Postextubation arterial blood gases revealed elevated CO2 levels in the 50s with pHs 7.2-7.3. Placed on BiPAP. POD #1: Remains on BiPAP. CO2 remains elevated. Consult to pulmonary. Pulmonary suspecting bronchospasms and started budesonide and duo nebs. nitroprusside drip has been weaned off. [place] [facility] consulted for diabetic management. PT/OT consulted. Start carvedilol 3.125 mg twice daily, Bumex 2 mg twice daily, and potassium 3 times daily. Keep in ICU today. POD #2: WBC increased to 18.4. Afebrile SPO2 90 to 92% on 2 L nasal cannula. Patient did wear BiPAP for part of night last evening. Chest x-ray showing persistent diffuse interstitial prominence with bibasilar patchy opacities, most likely pulmonary edema.Continue chest tubes. Keep in ICU to monitor respiratory status for another 24 hours. POD #3: Patient has been incontinent of urine and complains of dysuria. Post void residual this morning 853mL. Wewill insert indwelling [place] catheter, obtain urinalysis and urine culture, and consult [place] [facility]. WBC 20.3 this morning. Discontinue A-line. Keep in ICU. [facility]. Wean O2. Voiding trial prior to discharge per urology. WBC today 19.1. Afebrile. Urine culture negative to date. No obvious signs of infection noted. [1] POD #5: Patient complains of nausea and diarrhea this morning which she contributes to too many morning pills. Reports a good appetite. WBC 14.9. Patient is afebrile. Urine culture negative. SPO2 94% on 1 L nasal cannula. Wean oxygen to maintain SPO2 92% or higher. Increase carvedilol to 12.5 mg twice daily. Discont inue Lagos catheter today for an attempt a trial void. Bladder scan in 4 hours. We will replace indwelling [place] catheter if bladder scan is greater than 200 cc. Lik[facility]. Subjective Patient resting comfortably in bed. Reports feeling nauseated and having diarrhea this morning and she contributes this to too many morning pills. Objective Vitals and Measurements T: 36.8 C (Oral) TMIN: 36.4 C (Oral) TMAX: 36.8 C (Oral) HR: 108(Monitored) RR: 18 BP: 118/88 SpO2:94% Intake and Output 7AM Yesterday to 7AM Today Intake and Output (Last 24 hours) Intake Oral Intake 1620.00 Supplement Intake 120.00 Output Urinary Catheter Output: 4400.00 Stool Count 1.00 Urine Count 1.00 Emesis Count 0.00 Total Summary Total Intake 1740.00 Total Output 4400.00 Fluid Balance -2660.00 Physical Exam Constitutional: Alert, oriented, appropriate HEENT: Normocephalic, atraumatic, lungs: Unlabored respirations, lung sounds diminished bilaterally, SPO2 94% on 1 L nasal cannula Heart: Normal sinus rhythm/sinus tachycardia, S1-S2, no murmur or rub, heart rate ranging 89-108, temporary A and V pacer wires intact Abdomen: Obese, nontender, bowel sounds present, positive flatus, positive bowel movement 11/28/2021 : Indwelling [place] catheter in place draining clear yellow urine (output 3600 cc over last 24 hours and 180 cc over last 8 hours) Extremities: Well perfused, pedal pulses +1 bilaterally, +2 bilateral lower leg edema Integumentary: Mediastinal surgical incision dressing intact, padmini intact, no drainage; right lower leg surgical incisions open air, edges well approximated, no drainage Central venous access: Left subclavian triple-lumen Disposition: [facility] [place] Weight Current Weight Dosing Weight: 102.3 kg (11/23/21) Current Weight: 101.2 kg (11/27/21) Current Weight: 105.6 kg (11/26/21) Medications Medications (38) Active Scheduled: (15) bumetanide 1 mg tablet 4 mg 4 tab(s), Oral, qAM bumetanide 1 mg tablet 2 mg 2 tab(s), Oral, qPM carvedilol 12.5 mg tablet 12.5 mg 1 tab(s), Oral, BIDM docusate calcium 240 mg Capsule 240 mg 1 cap(s), Oral, BID enoxaparin 40 mg/ 0.4mL syringe 40 mg 0.4 mL, Subcutaneous, qDay insulin glargine 25 unit(s) 0.25 mL, Subcutaneous (INT), qHS insulin lispro 100 units/mL Soln (3 mL) Give 0-10 units/dose, Subcutaneous, achs insulin lispro 100 units/mL Soln (3 mL) 15 unit(s) 0.15 mL, Subcutaneous, TIDAC Misc communication order Cefazolin, Miscellaneous, qDay multivitamin (Chromagen Forte) with iron Vitamin B Complex with C, Folic Acid and Iron tablet 1 tab(s), Oral, qDay mupirocin 2% Ointment 22 Gram(s) tube 1 ina, Nostril, each, BID pantoprazole 40 mg EC tablet 40 mg 1 tab(s), Oral, qDayAC potassium chloride 20 mEq ER tablet 20 mEq 1 tab(s), Oral, TIDM potassium chloride 20 mEq ER tablet 20 mEq 1 tab(s), Oral, Once thyroid desiccated 60 mg tablet 60 mg 1 tab(s), Oral, qDay Continuous: (1) insulin regular 100 unit(s) + NS Premix Diluent 100 mL 100 mL, Intravenous PRN: (22) acetaminophen 325 mg Tablet 650 mg 2 tab(s), Oral, q4h Al hydrox/Mg hydrox/simethicone 200-200-20 mg/5 mL Susp UD 30 mL, Oral, q2h albuterol - ipratropium 2.5 mg-0.5 mg/3 mL Inhal Fernanda UD 3 mL, Inhalation, q4hRT bisacodyl 10 mg Suppository 10 mg 1 supp, Rectal, qDay budesonide 0.5 mg/2 mL Susp UD 0.5 mg 2 mL, Inhalation, BIDRT dextrose 50% Solution Disp syringe 50 mL 25 g 50 mL, IV Push, AsDirected dextrose 50% Solution Disp syringe 50 mL 12.5 gram(s) 25 mL, IV Push, AsDirected dextrose 50% Solution Disp syringe 50 mL 12.5 g 25 mL, IV Push, AsDirected glucagon recombinant 1 mg 1 mg 1 mL, Intramuscular, AsDirected insulin regular human recombinant 100 units/mL (3 mL) Soln 10 unit(s) 0.1 mL, IV Push, q1h magnesium hydroxide 8% Suspension 30 mL UD 30 mL, Oral, qDay magnesium sulfate 4g/50mL PMX 4 g 50 mL, IV Piggyback, AsDirected melatonin 1mg tablet 1 mg 1 tab(s), Oral, qHS ondansetron 2 mg/ 1 mL 2 mL INJ 4 mg 2 mL, IV Push, q4h phenol topical 1.4% Spr 1 spray(s), Topical, q1h polyethylene glycol 3350 - UD packet 17 gram(s) 15 mL, Oral, qDay potassium chloride (PMX) 20 mEq 50 mL, IV Piggyback, AsDirected potassium chloride (PMX) 15 mEq 50 mL, IV Piggyback, AsDirected potassium chloride (PMX) 10 mEq 50 mL, IV Piggyback, AsDirected protamine 10 mg/mL (50 mg/5 mL) vial 50 mg 5 mL, IV Push, Once tramadol 50 mg Tablet 100 mg 2 tab(s), Oral, q4h tramadol 50 mg Tablet 50 mg 1 tab(s), Oral, q4h Lab Results 11/28 04:03 WBC: 14.9 H Hgb: 11.2 L Hct: 34.4 Platelet: 353 Neutrophil %: 75.1 H Glucose Level: 208 H Sodium Level: 135 L Potassium Level: 3.7 BUN: 21.0 Creatinine Lvl (s): 0.90 11/27 04:57 WBC: 19.1 H Hgb: 11.6 L Hct: 35.1 Platelet: 322 Neutrophil %: 79.2 H Glucose Level: 142 H Sodium Level: 135 L Potassium Level: 4.1 BUN: 15.0 Creatinine Lvl (s): 0.70 Imaging Results and Diagnostics XR Chest 2 Views Result Date: November 28, 2021 Verified By: NUNU OFRREST MD CLINICAL STATEMENT: IMPRESSION: Hazy airspace disease at the lung bases with small bilateral effusions.Bibasilar hazy airspace disease. EKG EKG - Completed -- 11/26/21 20:59:00 EDT Assessment/Plan 1. CAD IN [place] ART[place] s/p PCI 2016; s/p CABG x2 11/23/21, EF55% Normal sinus rhythm/sinus tachycardia. Heart rate 89-108. Blood pressures ranging 110/66-148/62. Noaspirin or statin secondary to allergies. Increase carvedilol up to 12.5 mg twice daily. Weight from this morning pending completion. Remains on Bumex 4 mg every morning, Bumex 2 mg every afternoon, and KCl 20 mill equivalents 3 times daily. 2. Acute blood loss anemia H&H 11.2 and 34.4. No signs of active bleeding 3. Diabetes mellitus Hgb A1c 9.7% Followed by [place] [facility]. Glucoses ranging 172-240. On Humalog sliding scale insulin, Lantus 4. High blood pressure Blood pressures ranging 110/66-148/62. Increase carvedilol to 12.5 mg twice daily. 5. Hyperlipemia No statin secondary to allergy 6. Statin intolerance 7. Hypothyroid On thyroid desiccated 8. CKD stage 3 BUN and creatinine 21 and 1.90. Urine output 3600 cc over last 24 hours. On Bumex 9. IBS (irritable bowel syndrome) On no home medications 10. History of DVT (deep vein thrombosis) 11. History of tobacco use Patient reports that she quit smoking 6 years ago. 12. History of gastrointestinal bleeding 13. Hypercapnia Previously seen by pulmonary who has signed off. She was to wear BiPAP at nighttime however the patient had been refusing. SPO2 94% on 1 L nasal cannula. On as needed DuoNebs and budesonide. Patient will need outpatient sleep study. Gases this morning showing pH of 7.46, CO2 50.4, PO2 70.5. 14. Leukocytosis Improving. WBC 14.9. Afebrile over last 24 hours. Urine culture negative. 15. Postoperative urinary retention Followed by [place] [facility]. Urine culture negative. Plan to remove indwelling [place] catheter todayfor an attempt at a trial void. We will bladder scan in 4 hours. If bladder scan is greater than 200 cc, [place] catheter will be reinserted and patient will be discharged to ECF with catheter in placewith plans of a follow-up with urology in 1 to 2 weeks for trial void. 16. Dysuria Urine culture negative 17. Incontinent of urine Currently has indwelling [place] catheter in place with plans to remove catheter for trial void today. Plan: Increase carvedilol to 12.5 mg twice daily Discontinue indwelling [place] catheter Bladder scan in 4 hours, if greater than 200 cc, reinsert indwelling [place] catheter As needed melatonin for sleep Continue to wean oxygen to maintain SPO2 92% or higher High likelihood of discharge to ECF tomorrow We will order COVID-19 test to be completed this evening. CBC, BMP, and chest x-ray in a.m. Patient seen and discussed with Dr. Philippe. This note was generated using a voice recognition system. As a result, errors are possible and common, including incorrect words, spellings, grammar, gender, phrases, and punctuation that may be out of context or that were missed in checking this note before saving. Reasonable effort is made to correct such errors, but with demands of normal work flow, many are missed. [1] Progress Note; KAELYN DREWCREDIT AND COLLECTIONS REPRESENTATIVE 11/27/2021 08:52 EDT Digitally Signed by NAT DUNN on 11/28/2021 10:23 AM [id number] Progress note Date of Service 11/28/2021 Reason for visit: IDDM2. This note is a shared visit for services provided by Dr. Chirinos and myself. The following notesummarizes the services I have provided. Please refer to her addendum/note for further recommendations. Subjective Chart reviewed. Overnight events and plan of care d/w patient and nursing. Refusing SNF. Per RN, ate 100% of breakfast but only bites of lunch. Therapy services in room; attempting to work with patient. Patient c/o diarrhea for 1-2 days. Objective Vitals and Measurements T: 36.7 C (Oral) TMIN: 36.4 C (Oral) TMAX: 36.8 C (Oral) HR: 100(Monitored) RR: 17 BP: 120/63 SpO2:87% Intake and Output 7AM Yesterday to 7AM Today Intake and Output (Last 24 hours) Intake Oral Intake 1240.00 Supplement Intake 120.00 Output Urinary Catheter Output: 3450.00 Stool Count 1.00 Urine Count 1.00 Emesis Count 0.00 Total Summary Total Intake 1360.00 Total Output 3450.00 Fluid Balance -2090.00 Physical Exam Lying in bed, alert, no acute distress. Respirations unlabored. SR on tele. Trace LE edema. Weight Current Weight Dosing Weight: 102.3 kg (11/23/21) Current Weight: 101.2 kg (11/27/21) Current Weight: 105.6 kg (11/26/21) Medications Medications (38) Active Scheduled: (15) bumetanide 1 mg tablet 4 mg 4 tab(s), Oral, qAM bumetanide 1 mg tablet 2 mg 2 tab(s), Oral, qPM carvedilol 12.5 mg tablet 12.5 mg 1 tab(s), Oral, BIDM docusate calcium 240 mg Capsule 240 mg 1 cap(s), Oral, BID enoxaparin 40 mg/ 0.4mL syringe 40 mg 0.4 mL, Subcutaneous, qDay insulin glargine 25 unit(s) 0.25 mL, Subcutaneous (INT), qHS insulin lispro 100 units/mL Soln (3 mL) Give 0-10 units/dose, Subcutaneous, achs insulin lispro 100 units/mL Soln (3 mL) 15 unit(s) 0.15 mL, Subcutaneous, TIDAC Misc communication order Cefazolin, Miscellaneous, qDay multivitamin (Chromagen Forte) with iron Vitamin B Complex with C, Folic Acid and Iron tablet 1 tab(s), Oral, qDay mupirocin 2% Ointment 22 Gram(s) tube 1 ina, Nostril, each, BID pantoprazole 40 mg EC tablet 40 mg 1 tab(s), Oral, qDayAC potassium chloride 20 mEq ER tablet 20 mEq 1 tab(s), Oral, TIDM potassium chloride 20 mEq ER tablet 20 mEq 1 tab(s), Oral, Once thyroid desiccated 60 mg tablet 60 mg 1 tab(s), Oral, qDay Continuous: (1) insulin regular 100 unit(s) + NS Premix Diluent 100 mL 100 mL, Intravenous PRN: (22) acetaminophen 325 mg Tablet 650 mg 2 tab(s), Oral, q4h Al hydrox/Mg hydrox/simethicone 200-200-20 mg/5 mL Susp UD 30 mL, Oral, q2h albuterol - ipratropium 2.5 mg-0.5 mg/3 mL Inhal Fernanda UD 3 mL, Inhalation, q4hRT bisacodyl 10 mg Suppository 10 mg 1 supp, Rectal, qDay budesonide 0.5 mg/2 mL Susp UD 0.5 mg 2 mL, Inhalation, BIDRT dextrose 50% Solution Disp syringe 50 mL 25 g 50 mL, IV Push, AsDirected dextrose 50% Solution Disp syringe 50 mL 12.5 gram(s) 25 mL, IV Push, AsDirected dextrose 50% Solution Disp syringe 50 mL 12.5 g 25 mL, IV Push, AsDirected glucagon recombinant 1 mg 1 mg 1 mL, Intramuscular, AsDirected insulin regular human recombinant 100 units/mL (3 mL) Soln 10 unit(s) 0.1 mL, IV Push, q1h magnesium hydroxide 8% Suspension 30 mL UD 30 mL, Oral, qDay magnesium sulfate 4g/50mL PMX 4 g 50 mL, IV Piggyback, AsDirected melatonin 1mg tablet 1 mg 1 tab(s), Oral, qHS ondansetron 2 mg/ 1 mL 2 mL INJ 4 mg 2 mL, IV Push, q4h phenol topical 1.4% Spr 1 spray(s), Topical, q1h polyethylene glycol 3350 - UD packet 17 gram(s) 15 mL, Oral, qDay potassium chloride (PMX) 20 mEq 50 mL, IV Piggyback, AsDirected potassium chloride (PMX) 15 mEq 50 mL, IV Piggyback, AsDirected potassium chloride (PMX) 10 mEq 50 mL, IV Piggyback, AsDirected protamine 10 mg/mL (50 mg/5 mL) vial 50 mg 5 mL, IV Push, Once tramadol 50 mg Tablet 100 mg 2 tab(s), Oral, q4h tramadol 50 mg Tablet 50 mg 1 tab(s), Oral, q4h Lab Results 11/28 04:03 WBC: 14.9 H Hgb: 11.2 L Hct: 34.4 Platelet: 353 Neutrophil %: 75.1 H Glucose Level: 208 H Sodium Level: 135 L Potassium Level: 3.7 BUN: 21.0 Creatinine Lvl (s): 0.90 Group Detail Date Value w/Units Flags Normal Range Normal Reference Text Comment Ind Glucose Testing Blood Glucose, Capillary 11/28/2021 11:53:00 EDT 202 mg/dL ID [id number] Glucose Testing Blood Glucose, Capillary 11/28/2021 07:15:00 EDT 205 mg/dL HI 82-115 Glucose Testing Blood Glucose, Capillary 11/27/2021 21:05:00 EDT 172 mg/dL HI 82-115 Glucose Testing Blood Glucose, Capillary 11/27/2021 16:40:00 EDT 240 mg/dL HI 82-115 Y Glucose Testing Blood Glucose, Capillary 11/27/2021 11:19:00 EDT 168 mg/dL ID 82-115 Glucose Testing Blood Glucose, Capillary 11/27/2021 07:17:00 EDT 166 mg/dL ID [id number] EKG No qualifying data available. Assessment/Plan 1. CAD IN [place] ART[place] s/p PCI 2015; s/p CABG x2 11/23/21, EF55% 2. Acute blood loss anemia 3. Diabetes mellitus Hgb A1c 9.7% 4. High blood pressure 5. Hyperlipemia 6. Statin intolerance 7. Hypothyroid 8. CKD stage 3 9. IBS (irritable bowel syndrome) 10. History of DVT (deep vein thrombosis) 11. History of tobacco use 12. History of gastrointestinal bleeding 13. Hypercapnia 14. Leukocytosis 15. Postoperative urinary retention 16. Dysuria 17. Incontinent of urine Orders: insulin lispro (HumaLOG), Start: 11/28/21 8:00:00 EDT, Dose = 15 unit(s), = 0.15 mL, Subcutaneous, TIDAC, 0, 11/27/21 18:21:00 EDT 71-year-old female with past medical history of CAD status post PCI in 2015, hypothyroidism, hypertension, hyperlipidemia, irritable bowel syndrome, diabetes, history of DVT, history of tobacco use (quit 6 years ago), history of GI bleeds requiring blood transfusions, and obesity. 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 Jewell in [place] which revealed an EF of 55% with 70% stenosis of the left main and a patent stent in her right coronary artery. She was seen and evaluated by Dr. Philippe. On November 23, 2021, she underwent a two-vessel coronary artery bypass grafting using ADAN to LAD with a reverse saphenous vein, aortocoronary graft to the first obtuse marginal coronary artery. She tolerated the surgery well and was was transferred to cardiovascular ICUin stable condition. Briefly required nitroprusside drip postoperatively for blood pressure control. Endocrinology consulted for diabetic management. 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 Previously established with endocrinology, Dr. Chirinos, now being managed by PCP. On home regimen of 70/30 24 units twice daily.Trial of multiple non-insulin injectables, oral agents which she has not tolerated due to GI complaints. Patient also with hypothyroidism. Elevated TSH noted 9.830. Recently transition to thyroid desiccated 60 daily due to reported intolerance of levothyroxine which she previously had been taking longstanding. Orders for the same have been reintroduced. Repeat thyroid function testing outpatient in 4 to 6 weeks Also with history of hyperlipidemia, statin intolerant. Experiences myalgia. Reportedly has trialedseveral agents. Lipid panel did result showing total cholesterol 85, triglycerides 72, HDL 34, LDL 37. Discussed with her A1c. Reviewed A1c goals, glycemic targets. She is morbidly obese with a BMI of 41. In need of better diet control, weight loss. Further discussions of the same as her clinical course progresses Last 24 hours: On Lantus 25 units qHS, Humalog increased 12 -->15 units tidac; first dose this am. BG reviewed, pre-lunch hyperglycemia noted. Ate 100% of breakfast. Consider increasing Humalog with breakfast. Time Spent 15 min Digitally Signed by DIVINA DOSS on 11/28/2021 01:30 PM [id number] Nurse Progress note Patient refused morning potassium, education provided on why patient was prescribed this supplement, patient stated she couldn't take any more pills this morning. Patient stated she wanted to sign herself out, did not want to go to an extended care facility for therapy. More education provided. Digitally Signed by Ina Dukes RN on 11/28/2021 12:16 PM [id number] Note Date of Service 11/28/2021 Chief Complaint POD #5 This is a 71-year-old female with past medical history of CAD status post PCI in 2016, hypothyroidism, hypertension, hyperlipidemia, irritable bowel syndrome, diabetes, history of DVT, history of tobacco use (quit 6 years ago), history of GI bleeds requiring blood transfusions, and obesity. 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 Jewell in [place] which revealed an EF of 55% with 70% stenosis of the left main and a patent stent in her right coronary artery. Shewas seen and evaluated by Dr. Philippe. On November 23, 2021, she underwent a two-vessel coronary artery bypass grafting using ADAN to LAD with a reverse saphenous vein, aortocoronary graft to the firstobtuse marginal coronary artery. She tolerated the surgery well and was was transferred to cardiovascular ICU in stable condition. Briefly required nitroprusside drip postoperatively for blood pressure control. Liberated from mechanical ventilator operative night. Postextubation arterial blood gases revealed elevated CO2 levels in the 50s with pHs 7.2-7.3. Placed on BiPAP. POD #1: Remains on BiPAP. CO2 remains elevated. Consult to pulmonary. Pulmonary suspecting bronchospasms and started budesonide and duo nebs. nitroprusside drip has been weaned off. [place] [facility] consulted for diabetic management. PT/OT consulted. Start carvedilol 3.125 mg twice daily, Bumex 2 mg twice daily, and potassium 3 times daily. Keep in ICU today. POD #2: WBC increased to 18.4. Afebrile SPO2 90 to 92% on 2 L nasal cannula. Patient did wear BiPAP for part of night last evening. Chest x-ray showing persistent diffuse interstitial prominence with bibasilar patchy opacities, most likely pulmonary edema.Continue chest tubes. Keep in ICU to monitor respiratory status for another 24 hours. POD #3: Patient has been incontinent of urine and complains of dysuria. Post void residual this morning 853mL. Wewill insert indwelling [place] catheter, obtain urinalysis and urine culture, and consult [place] [facility]. WBC 20.3 this morning. Discontinue A-line. Keep in ICU. [facility]. Wean O2. Voiding trial prior to discharge per urology. WBC today 19.1. A febrile. Urine culture negative to date. No obvious signs of infection noted. [1] POD #5: Patient complains of nausea and diarrhea this morning which she contributes to too many morning pills. Reports a good appetite. WBC 14.9. Patient is afebrile. Urine culture negative. SPO2 94% on 1 L nasal cannula. Wean oxygen to maintain SPO2 92% or higher. Increase carvedilol to 12.5 mg twice daily. Discontinue [place] catheter today for an attempt a trial void. Bladder scan in 4 hours. We will replace indwelling [place] catheter if bladder scan is greater than 200 cc. Likely discharge to [facility] tomorrow. Subjective Patient resting comfortably in bed. Reports feeling nauseated and having diarrhea this morning and she contributes this to too many morning pills. Objective Vitals and Measurements T: 36.8 C (Oral) TMIN: 36.4 C (Oral) TMAX: 36.8 C (Oral) HR: 108(Monitored) RR: 18 BP: 118/88 SpO2:94% Intake and Output 7AM Yesterday to 7AM Today Intake and Output (Last 24 hours) Intake Oral Intake 1620.00 Supplement Intake 120.00 Output Urinary Catheter Output: 4400.00 Stool Count 1.00 Urine Count 1.00 Emesis Count 0.00 Total Summary Total Intake 1740.00 Total Output 4400.00 Fluid Balance -2660.00 Physical Exam Constitutional: Alert, oriented, appropriate HEENT: Normocephalic, atraumatic, lungs: Unlabored respirations, lung sounds diminished bilaterally, SPO2 94% on 1 L nasal cannula Heart: Normal sinus rhythm/sinus tachycardia, S1-S2, no murmur or rub, heart rate ranging 89-108, temporary A and V pacer wires intact Abdomen: Obese, nontender, bowel sounds present, positive flatus, positive bowel movement 11/28/2021 : Indwelling [place] catheter in place draining clear yellow urine (output 3600 cc over last 24 hours and 180 cc over last 8 hours) Extremities: Well perfused, pedal pulses +1 bilaterally, +2 bilateral lower leg edema Integumentary: Mediastinal surgical incision dressing intact, padmini intact, no drainage; right lower leg surgical incisions open air, edges well approximated, no drainage Central venous access: Left subclavian triple-lumen Disposition: [facility] [place] Weight Current Weight Dosing Weight: 102.3 kg (11/23/21) Current Weight: 101.2 kg (11/27/21) Current Weight: 105.6 kg (11/26/21) Medications Medications (38) Active Scheduled: (15) bumetanide 1 mg tablet 4 mg 4 tab(s), Oral, qAM bumetanide 1 mg tablet 2 mg 2 tab(s), Oral, qPM carvedilol 12.5 mg tablet 12.5 mg 1 tab(s), Oral, BIDM docusate calcium 240 mg Capsule 240 mg 1 cap(s), Oral, BID enoxaparin 40 mg/ 0.4mL syringe 40 mg 0.4 mL, Subcutaneous, qDay insulin glargine 25 unit(s) 0.25 mL, Subcutaneous (INT), qHS insulin lispro 100 units/mL Soln (3 mL) Give 0-10 units/dose, Subcutaneous, achs insulin lispro 100 units/mL Soln (3 mL) 15 unit(s) 0.15 mL, Subcutaneous, TIDAC Misc communication order Cefazolin, Miscellaneous, qDay multivitamin (Chromagen Forte) with iron Vitamin B Complex with C, Folic Acid and Iron tablet 1 tab(s), Oral, qDay mupirocin 2% Ointment 22 Gram(s) tube 1 ina, Nostril, each, BID pantoprazole 40 mg EC tablet 40 mg 1 tab(s), Oral, qDayAC potassium chloride 20 mEq ER tablet 20 mEq 1 tab(s), Oral, TIDM potassium chloride 20 mEq ER tablet 20 mEq 1 tab(s), Oral, Once thyroid desiccated 60 mg tablet 60 mg 1 tab(s), Oral, qDay Continuous: (1) insulin regular 100 unit(s) + NS Premix Diluent 100 mL 100 mL, Intravenous PRN: (22) acetaminophen 325 mg Tablet 650 mg 2 tab(s), Oral, q4h Al hydrox/Mg hydrox/simethicone 200-200-20 mg/5 mL Susp UD 30 mL, Oral, q2h albuterol - ipratropium 2.5 mg-0.5 mg/3 mL Inhal Fernanda UD 3 mL, Inhalation, q4hRT bisacodyl 10 mg Suppository 10 mg 1 supp, Rectal, qDay budesonide 0.5 mg/2 mL Susp UD 0.5 mg 2 mL, Inhalation, BIDRT dextrose 50% Solution Disp syringe 50 mL 25 g 50 mL, IV Push, AsDirected dextrose 50% Solution Disp syringe 50 mL 12.5 gram(s) 25 mL, IV Push, AsDirected dextrose 50% Solution Disp syringe 50 mL 12.5 g 25 mL, IV Push, AsDirected glucagon recombinant 1 mg 1 mg 1 mL, Intramuscular, AsDirected insulin regular human recombinant 100 units/mL (3 mL) Soln 10 unit(s) 0.1 mL, IV Push, q1h magnesium hydroxide 8% Suspension 30 mL UD 30 mL, Oral, qDay magnesium sulfate 4g/50mL PMX 4 g 50 mL, IV Piggyback, AsDirected melatonin 1mg tablet 1 mg 1 tab(s), Oral, qHS ondansetron 2 mg/ 1 mL 2 mL INJ 4 mg 2 mL, IV Push, q4h phenol topical 1.4% Spr 1 spray(s), Topical, q1h polyethylene glycol 3350 - UD packet 17 gram(s) 15 mL, Oral, qDay potassium chloride (PMX) 20 mEq 50 mL, IV Piggyback, AsDirected potassium chloride (PMX) 15 mEq 50 mL, IV Piggyback, AsDirected potassium chloride (PMX) 10 mEq 50 mL, IV Piggyback, AsDirected protamine 10 mg/mL (50 mg/5 mL) vial 50 mg 5 mL, IV Push, Once tramadol 50 mg Tablet 100 mg 2 tab(s), Oral, q4h tramadol 50 mg Tablet 50 mg 1 tab(s), Oral, q4h Lab Results 11/28 04:03 WBC: 14.9 H Hgb: 11.2 L Hct: 34.4 Platelet: 353 Neutrophil %: 75.1 H Glucose Level: 208 H Sodium Level: 135 L Potassium Level: 3.7 BUN: 21.0 Creatinine Lvl (s): 0.90 11/27 04:57 WBC: 19.1 H Hgb: 11.6 L Hct: 35.1 Platelet: 322 Neutrophil %: 79.2 H Glucose Level: 142 H Sodium Level: 135 L Potassium Level: 4.1 BUN: 15.0 Creatinine Lvl (s): 0.70 Imaging Results and Diagnostics XR Chest 2 Views Result Date: November 28, 2021 Verified By: NUNU FORREST MD CLINICAL STATEMENT: IMPRESSION: Hazy airspace disease at the lung bases with small bilateral effusions.Bibasilar hazy airspace disease. EKG EKG - Completed -- 11/26/21 20:59:00 EDT Assessment/Plan 1. CAD IN [place] ART[place] s/p PCI 2016; s/p CABG x2 11/23/21, EF55% Normal sinus rhythm/sinus tachycardia. Heart rate 89-108. Blood pressures ranging 110/66-148/62. Noaspirin or statin secondary to allergies. Increase carvedilol up to 12.5 mg twice daily. Weight from this morning pending completion. Remains on Bumex 4 mg every morning, Bumex 2 mg every afternoon, and KCl 20 mill equivalents 3 times daily. 2. Acute blood loss anemia H&H 11.2 and 34.4. No signs of active bleeding 3. Diabetes mellitus Hgb A1c 9.7% Followed by [facility]. Glucoses ranging 172-240. On Humalog sliding scale insulin, Lantus 4. High blood pressure Blood pressures ranging 110/66-148/62. Increase carvedilol to 12.5 mg twice daily. 5. Hyperlipemia No statin secondary to allergy 6. Statin intolerance 7. Hypothyroid On thyroid desiccated 8. CKD stage 3 BUN and creatinine 21 and 1.90. Urine output 3600 cc over last 24 hours. On Bumex 9. IBS (irritable bowel syndrome) On no home medications 10. History of DVT (deep vein thrombosis) 11. History of tobacco use Patient reports that she quit smoking 6 years ago. 12. History of gastrointestinal bleeding 13. Hypercapnia Previously seen by pulmonary who has signed off. She was to wear BiPAP at nighttime however the patient had been refusing. SPO2 94% on 1 L nasal cannula. On as needed DuoNebs and budesonide. Patient will need outpatient sleep study. Gases this morning showing pH of 7.46, CO2 50.4, PO2 70.5. 14. Leukocytosis Improving. WBC 14.9. Afebrile over last 24 hours. Urine culture negative. 15. Postoperative urinary retention Followed by [facility]. Urine culture negative. Plan to remove indwelling [place] catheter todayfor an attempt at a trial void. We will bladder scan in 4 hours. If bladder scan is greater than 200 cc, [place] catheter will be reinserted and patient will be discharged to ECF with catheter in placewith plans of a follow-up with urology in 1 to 2 weeks for trial void. 16. Dysuria Urine culture negative 17. Incontinent of urine Currently has indwelling [place] catheter in place with plans to remove catheter for trial void today. Plan: Increase carvedilol to 12.5 mg twice daily Discontinue indwelling [place] catheter Bladder scan in 4 hours, if greater than 200 cc, reinsert indwelling [place] catheter As needed melatonin for sleep Continue to wean oxygen to maintain SPO2 92% or higher High likelihood of discharge to ECF tomorrow We will order COVID-19 test to be completed this evening. CBC, BMP, and chest x-ray in a.m. Patient seen and discussed with Dr. Philippe. This note was generated using a voice recognition system. As a result, errors are possible and common, including incorrect words, spellings, grammar, gender, phrases, and punctuation that may be out of context or that were missed in checking this note before saving. Reasonable effort is made to correct such errors, but with demands of normal work flow, many are missed. [1] Progress Note; KAELYN DREW APRN-CREDIT AND COLLECTIONS REPRESENTATIVE 11/27/2021 08:52 EDT Digitally Signed by NAT DUNN on 11/28/2021 10:23 AM [id number] Note. MICRO - Microbiology PROCEDURE: Urine Culture [*1] SOURCE: Urine, [place] Catheter BODY SITE: COLLECTED DATE/TIME: 11/26/2021 07:27 EDT RECEIVED DATE/TIME: 11/26/2021 07:39 EDT START DATE/TIME: 11/26/2021 07:39 EDT FREE TEXT SOURCE: FINAL REPORTS Final Report [] Verified Date/Time/Personnel: 11/28/2021 07:22 EDT No growth at 48 hours. PRELIMINARY REPORTS Preliminary Report [] Verified Date/Time/Personnel: 11/27/2021 08:52 EDT No growth to date Performing Locations *1: This test was performed at: [address], [facility] , [facility] ([place])11-28-2021 Note ORIGINAL EXAMINATION: TWO XRAY VIEWS OF THE CHEST 11/28/2021 7:08 am COMPARISON: None. HISTORY: ORDERING SYSTEM PROVIDED HISTORY: Reason for Exam: abnormal lung sounds FINDINGS: Cardiomediastinal silhouette is mildly enlarged. Left subclavian central venous catheter tube tip terminates in the SVC. Small bilateral effusions. Hazy airspace disease at the lung bases. No evidence of a pneumothorax. Sternotomy wires are present in the chest wall. IMPRESSION: Hazy airspace disease at the lung bases with small bilateral effusions. Bibasilar hazy airspace disease. Interpreted by: Nunu Forrest MD Preliminary Report By: Nunu Forrest MD Electronically signed By Nunu Forrest MD Dictated Date: 11/28/2021 8:12:08 AM Prelim Date: 11/28/2021 8:13:29 AM Sign Date: 11/28/2021 8:13:29 AM Ordering Provider: [facility]09-13-2022 Note ORIGINAL EXAMINATION: TWO XRAY VIEWS OF THE CHEST 11/28/2021 7:08 am COMPARISON: None. HISTORY: ORDERING SYSTEM PROVIDED HISTORY: Reason for Exam: abnormal lung sounds FINDINGS: Cardiomediastinal silhouette is mildly enlarged. Left subclavian central venous catheter tube tip terminates in the SVC. Small bilateral effusions. Hazy airspace disease at the lung bases. No evidence of a pneumothorax. Sternotomy wires are present in the chest wall. IMPRESSION: Hazy airspace disease at the lung bases with small bilateral effusions. Bibasilar hazy airspace disease. Interpreted by: Nunu Forrest MD Preliminary Report By: Nunu Forrest MD Electronically signed By uNnu Forrest MD Dictated Date: 11/28/2021 8:12:08 AM Prelim Date: 11/28/2021 8:13:29 AM Sign Date: 11/28/2021 8:13:29 AM Ordering Provider: [facility]09-12-2022 Endocrinology Progress note Date of Service 11/27/2021 Reason for visit: IDDM2. Subjective Chart reviewed. Overnight events and plan of care d/w patient and nursing. Denies complaints. Reports she is eating very well. I ate so much at breakfast that I threw up. Objective Vitals and Measurements T: 36.5 C (Oral) TMIN: 36.5 C (Oral) TMAX: 36.9 C (Oral) HR: 111(Monitored) RR: 16 BP: 106/55 BP: 127/65(Sitting) BP: 127/61(Standing) BP: 120/62(Supine) SpO2: 94% WT: 101.2 kg Intake and Output 7AM Yesterday to 7AM Today Intake and Output (Last 24 hours) Intake Oral Intake 1220.00 Output Urinary Catheter Output: 4300.00 Stool Count 0.00 Emesis Count 3.00 Total Summary Total Intake 1220.00 Total Output 4300.00 Fluid Balance -3080.00 Physical Exam Lying iin bed, alert, no acute distress. Respirations unlabored. Trace peripheral edema. [place]. Weight Current Weight Dosing Weight: 102.3 kg (11/23/21) Current Weight: 101.2 kg (11/27/21) Current Weight: 105.6 kg (11/26/21) Medications Medications (36) Active Scheduled: (14) bumetanide 1 mg tablet 4 mg 4 tab(s), Oral, qAM bumetanide 1 mg tablet 2 mg 2 tab(s), Oral, qPM carvedilol 6.25 mg tablet 6.25 mg 1 tab(s), Oral, BIDM docusate calcium 240 mg Capsule 240 mg 1 cap(s), Oral, BID enoxaparin 40 mg/ 0.4mL syringe 40 mg 0.4 mL, Subcutaneous, qDay insulin glargine 25 unit(s) 0.25 mL, Subcutaneous (INT), qHS insulin lispro 100 units/mL Soln (3 mL) Give 0-10 units/dose, Subcutaneous, achs insulin lispro 100 units/mL Soln (3 mL) 12 unit(s) 0.12 mL, Subcutaneous, TIDAC Misc communication order Cefazolin, Miscellaneous, qDay multivitamin (Chromagen Forte) with iron Vitamin B Complex with C, Folic Acid and Iron tablet 1 tab(s), Oral, qDay mupirocin 2% Ointment 22 Gram(s) tube 1 ina, Nostril, each, BID pantoprazole 40 mg EC tablet 40 mg 1 tab(s), Oral, qDayAC potassium chloride 20 mEq ER tablet 20 mEq 1 tab(s), Oral, TIDM thyroid desiccated 60 mg tablet 60 mg 1 tab(s), Oral, qDay Continuous: (1) insulin regular 100 unit(s) + NS Premix Diluent 100 mL 100 mL, Intravenous PRN: (21) acetaminophen 325 mg Tablet 650 mg 2 tab(s), Oral, q4h Al hydrox/Mg hydrox/simethicone 200-200-20 mg/5 mL Susp UD 30 mL, Oral, q2h albuterol - ipratropium 2.5 mg-0.5 mg/3 mL Inhal Fernanda UD 3 mL, Inhalation, q4hRT bisacodyl 10 mg Suppository 10 mg 1 supp, Rectal, qDay budesonide 0.5 mg/2 mL Susp UD 0.5 mg 2 mL, Inhalation, BIDRT dextrose 50% Solution Disp syringe 50 mL 25 g 50 mL, IV Push, AsDirected dextrose 50% Solution Disp syringe 50 mL 12.5 gram(s) 25 mL, IV Push, AsDirected dextrose 50% Solution Disp syringe 50 mL 12.5 g 25 mL, IV Push, AsDirected glucagon recombinant 1 mg 1 mg 1 mL, Intramuscular, AsDirected insulin regular human recombinant 100 units/mL (3 mL) Soln 10 unit(s) 0.1 mL, IV Push, q1h magnesium hydroxide 8% Suspension 30 mL UD 30 mL, Oral, qDay magnesium sulfate 4g/50mL PMX 4 g 50 mL, IV Piggyback, AsDirected ondansetron 2 mg/ 1 mL 2 mL INJ 4 mg 2 mL, IV Push, q4h phenol topical 1.4% Spr 1 spray(s), Topical, q1h polyethylene glycol 3350 - UD packet 17 gram(s) 15 mL, Oral, qDay potassium chloride (PMX) 20 mEq 50 mL, IV Piggyback, AsDirected potassium chloride (PMX) 15 mEq 50 mL, IV Piggyback, AsDirected potassium chloride (PMX) 10 mEq 50 mL, IV Piggyback, AsDirected protamine 10 mg/mL (50 mg/5 mL) vial 50 mg 5 mL, IV Push, Once tramadol 50 mg Tablet 100 mg 2 tab(s), Oral, q4h tramadol 50 mg Tablet 50 mg 1 tab(s), Oral, q4h Lab Results 11/27 04:57 WBC: 19.1 H Hgb: 11.6 L Hct: 35.1 Platelet: 322 Neutrophil %: 79.2 H Glucose Level: 142 H Sodium Level: 135 L Potassium Level: 4.1 BUN: 15.0 Creatinine Lvl (s): 0.70 Group Detail Date Value w/Units Flags Normal Range Normal Reference Text Comment Ind Glucose Testing Blood Glucose, Capillary 11/27/2021 16:40:00 EDT 240 mg/dL ID 82-115 Y Glucose Testing Blood Glucose, Capillary 11/27/2021 11:19:00 EDT 168 mg/dL HI 82-115 Glucose Testing Blood Glucose, Capillary 11/27/2021 07:17:00 EDT 166 mg/dL HI 82-115 Glucose Testing Blood Glucose, Capillary 11/26/2021 23:04:00 EDT 137 mg/dL ID 82-115 Glucose Testing Blood Glucose, Capillary 11/26/2021 20:38:00 EDT 142 mg/dL ID 82-115 Glucose Testing Blood Glucose, Capillary 11/26/2021 16:40:00 EDT 161 mg/dL ID 82-115 Glucose Testing Blood Glucose, Capillary 11/26/2021 11:24:00 EDT 243 mg/dL ID 82-115 Glucose Testing Blood Glucose, Capillary 11/26/2021 07:35:00 EDT 165 mg/dL ID 82-115 EKG EKG - Completed -- 11/26/21 20:59:00 EDT Electrocardiogram - InProcess -- 11/27/21 6:00:00 EDT, On the 4th post op day Assessment/Plan 1. CAD IN [place] ART[place] s/p PCI 2015; s/p CABG x2 11/23/21, EF55% 2. Acute blood loss anemia 3. Diabetes mellitus Hgb A1c 9.7% 4. High blood pressure 5. Hyperlipemia 6. Statin intolerance 7. Hypothyroid 8. CKD stage 3 9. IBS (irritable bowel syndrome) 10. History of DVT (deep vein thrombosis) 11. History of tobacco use 12. History of gastrointestinal bleeding 13. Hypercapnia 14. Leukocytosis 15. Postoperative urinary retention 16. Dysuria 17. Incontinent of urine 71-year-old female with past medical history of CAD status post PCI in 2015, hypothyroidism, hypertension, hyperlipidemia, irritable bowel syndrome, diabetes, history of DVT, history of tobacco use (quit 6 years ago), history of GI bleeds requiring blood transfusions, and obesity. 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 Jewell in [place] which revealed an EF of 55% with 70% stenosis of the left main and a patent stent in her right coronary artery. She was seen and evaluated by Dr. Philippe. On November 23, 2021, she underwent a two-vessel coronary artery bypass grafting using ADAN to LAD with a reverse saphenous vein, aortocoronary graft to the first obtuse marginal coronary artery. She tolerated the surgery well and was was transferred to cardiovascular ICUin stable condition. Briefly required nitroprusside drip postoperatively for blood pressure control. Endocrinology consulted for diabetic management. 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 Previously established with endocrinology, Dr. Chirinos, now being managed by PCP. On home regimen of 70/30 24 units twice daily.Trial of multiple non-insulin injectables, oral agents which she has not tolerated due to GI complaints. Patient also with hypothyroidism. Elevated TSH noted 9.830. Recently transition to thyroid desiccated 60 daily due to reported intolerance of levothyroxine which she previously had been taking longstanding. Orders for the same have been reintroduced. Repeat thyroid function testing outpatient in 4 to 6 weeks Also with history of hyperlipidemia, statin intolerant. Experiences myalgia. Reportedly has trialedseveral agents. Lipid panel did result showing total cholesterol 85, triglycerides 72, HDL 34, LDL 37. Discussed with her A1c. Reviewed A1c goals, glycemic targets. She is morbidly obese with a BMI of 41. In need of better diet control, weight loss. Further discussions of the same as her clinical course progresses Last 24 hours:On Lantus 25 units qHS, Humalog 12 units tidac. BG reviewed, worsening hyperglycemia.Increase Humalog to 15 units tidac. Plan for d/c on MDI. She does have some cost concerns and certainly compliance should be consideredas a potential barrier. Unfortunately she has not tolerated multiple alternative agents including metformin, SGLT2, DPP 4 and GLP analogs. Today, requests outpatient f/u with Dr. Chirinos. D/w Dr. Chirinos Time Spent 25 min Digitally Signed by DIVINA DOSS on 11/27/2021 10:48 PM [id number] Note Date of Service 11/27/2021 postop day #4 Chief Complaint This is a 71-year-old female with past medical history of CAD status post PCI in 2016, hypothyroidism, hypertension, hyperlipidemia, irritable bowel syndrome, diabetes, history of DVT, history of tobacco use (quit 6 years ago), history of GI bleeds requiring blood transfusions, and obesity. 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 Jewell in [place] which revealed an EF of 55% with 70% stenosis of the left main and a patent stent in her right coronary artery. Shewas seen and evaluated by Dr. Philippe. On November 23, 2021, she underwent a two-vessel coronary artery bypass grafting using ADAN to LAD with a reverse saphenous vein, aortocoronary graft to the firstobtuse marginal coronary artery. She tolerated the surgery well and was was transferred to cardiovascular ICU in stable condition. Briefly required nitroprusside drip postoperatively for blood pressure control. Liberated from mechanical ventilator operative night. Postextubation arterial blood gases revealed elevated CO2 levels in the 50s with pHs 7.2-7.3. Placed on BiPAP. POD #1: Remains on BiPAP. CO2 remains elevated. Consult to pulmonary. Pulmonary suspecting bronchospasms and started budesonide and duo nebs. nitroprusside drip has been weaned off. [facility] consulted for diabetic management. PT/OT consulted. Start carvedilol 3.125 mg twice daily, Bumex 2 mg twice daily, and potassium 3 times daily. Keep in ICU today. POD #2: WBC increased to 18.4. Afebrile SPO2 90 to 92% on 2 L nasal cannula. Patient did wear BiPAP for part of night last evening. Chest x-ray showing persistent diffuse interstitial prominence with bibasilar patchy opacities, most likely pulmonary edema.Continue chest tubes. Keep in ICU to monitor respiratory status for another 24 hours. POD #3: Patient has been incontinent of urine and complains of dysuria. Post void residual this morning 853mL. We will insert indwelling [place] catheter, obtain urinalysis and urine culture, and consult [facility]. WBC 20.3 this morning. Discontinue A-line. Keep in ICU. Postop day #4. Transfer to stepdown. Aggressive pulmonary toilet. Wean O2. Voiding trial prior to discharge per urology. WBC today 19.1. Afebrile. Urine culture negative to date. No obvious signs of infection noted. Subjective Sitting on the side of the bed, no specific complaints except for being tired, currently on room air Objective Vitals and Measurements T: 36.8 C (Oral) TMIN: 36.7 C (Oral) TMAX: 36.9 C (Oral) HR: 104(Monitored) RR: 16 BP: 140/68 BP: 113/55(Line) BP: 127/65(Sitting) BP: 127/61(Standing) BP: 120/62(Supine) SpO2: 90% WT: 101.2 kg Intake and Output 7AM Yesterday to 7AM Today Intake and Output (Last 24 hours) Intake Oral Intake 840.00 Output Urinary Catheter Output: 4135.00 Stool Count 0.00 Total Summary Total Intake 840.00 Total Output 4135.00 Fluid Balance -3295.00 Physical Exam Lungs: Bilateral, clear, diminished, with occasional rhonchi, dry cough Heart: Regular S1-S2, monitor normal sinus rhythm Incision: Midsternal incision without drainage, right leg incisions without drainage Abdomen: Round, soft, bowel sounds present, nontender, last BM 11/25 Neurological: Intact Extremities: Well perfused Temporary pacemaker wires intact Central line continue poor IV access Discharge plan: Pending, SNF Weight Current Weight Dosing Weight: 102.3 kg (11/23/21) Current Weight: 101.2 kg (11/27/21) Current Weight: 105.6 kg (11/26/21) Medications Medications (36) Active Scheduled: (14) bumetanide 1 mg tablet 4 mg 4 tab(s), Oral, qAM bumetanide 1 mg tablet 2 mg 2 tab(s), Oral, qPM carvedilol 6.25 mg tablet 6.25 mg 1 tab(s), Oral, BIDM docusate calcium 240 mg Capsule 240 mg 1 cap(s), Oral, BID enoxaparin 40 mg/ 0.4mL syringe 40 mg 0.4 mL, Subcutaneous, qDay insulin glargine 25 unit(s) 0.25 mL, Subcutaneous (INT), qHS insulin lispro 100 units/mL Soln (3 mL) Give 0-10 units/dose, Subcutaneous, achs insulin lispro 100 units/mL Soln (3 mL) 12 unit(s) 0.12 mL, Subcutaneous, TIDAC Misc communication order Cefazolin, Miscellaneous, qDay multivitamin (Chromagen Forte) with iron Vitamin B Complex with C, Folic Acid and Iron tablet 1 tab(s), Oral, qDay mupirocin 2% Ointment 22 Gram(s) tube 1 ina, Nostril, each, BID pantoprazole 40 mg EC tablet 40 mg 1 tab(s), Oral, qDayAC potassium chloride 20 mEq ER tablet 20 mEq 1 tab(s), Oral, TIDM thyroid desiccated 60 mg tablet 60 mg 1 tab(s), Oral, qDay Continuous: (1) insulin regular 100 unit(s) + NS Premix Diluent 100 mL 100 mL, Intravenous PRN: (21) acetaminophen 325 mg Tablet 650 mg 2 tab(s), Oral, q4h Al hydrox/Mg hydrox/simethicone 200-200-20 mg/5 mL Susp UD 30 mL, Oral, q2h albuterol - ipratropium 2.5 mg-0.5 mg/3 mL Inhal Fernanda UD 3 mL, Inhalation, q4hRT bisacodyl 10 mg Suppository 10 mg 1 supp, Rectal, qDay budesonide 0.5 mg/2 mL Susp UD 0.5 mg 2 mL, Inhalation, BIDRT dextrose 50% Solution Disp syringe 50 mL 25 g 50 mL, IV Push, AsDirected dextrose 50% Solution Disp syringe 50 mL 12.5 gram(s) 25 mL, IV Push, AsDirected dextrose 50% Solution Disp syringe 50 mL 12.5 g 25 mL, IV Push, AsDirected glucagon recombinant 1 mg 1 mg 1 mL, Intramuscular, AsDirected insulin regular human recombinant 100 units/mL (3 mL) Soln 10 unit(s) 0.1 mL, IV Push, q1h magnesium hydroxide 8% Suspension 30 mL UD 30 mL, Oral, qDay magnesium sulfate 4g/50mL PMX 4 g 50 mL, IV Piggyback, AsDirected ondansetron 2 mg/ 1 mL 2 mL INJ 4 mg 2 mL, IV Push, q4h phenol topical 1.4% Spr 1 spray(s), Topical, q1h polyethylene glycol 3350 - UD packet 17 gram(s) 15 mL, Oral, qDay potassium chloride (PMX) 20 mEq 50 mL, IV Piggyback, AsDirected potassium chloride (PMX) 15 mEq 50 mL, IV Piggyback, AsDirected potassium chloride (PMX) 10 mEq 50 mL, IV Piggyback, AsDirected protamine 10 mg/mL (50 mg/5 mL) vial 50 mg 5 mL, IV Push, Once tramadol 50 mg Tablet 100 mg 2 tab(s), Oral, q4h tramadol 50 mg Tablet 50 mg 1 tab(s), Oral, q4h Lab Results 11/27 04:57 WBC: 19.1 H Hgb: 11.6 L Hct: 35.1 Platelet: 322 Neutrophil %: 79.2 H Glucose Level: 142 H Sodium Level: 135 L Potassium Level: 4.1 BUN: 15.0 Creatinine Lvl (s): 0.70 11/26 16:46 WBC: 19.8 H Hgb: 10.5 L Hct: 31.3 L Platelet: 268 Neutrophil %: 80.5 H 11/26 04:37 WBC: 20.3 H Hgb: 10.3 L Hct: 31.7 L Platelet: 243 Neutrophil %: 81.6 H Glucose Level: 176 H Sodium Level: 133 L Potassium Level: 4.2 BUN: 18.0 Creatinine Lvl (s): 0.68 Imaging Results and Diagnostics (11/27/2021 05:39 EDT XR Chest 2 Views) ORIGINAL EXAMINATION: TWO XRAY VIEWS OF THE CHEST 11/27/2021 5:39 am COMPARISON: None. HISTORY: ORDERING SYSTEM PROVIDED HISTORY: Reason for Exam: abnormal breath sounds FINDINGS: Sternotomy wires are present in the chest wall. Left subclavian central venous catheter tube tip terminates in the SVC. Small bilateral effusions. Adjacent hazy airspace disease. No pneumothorax. Moderate cardiomegaly. No focal consolidation. IMPRESSION: Small bilateral effusions with adjacent hazy airspace disease. Moderate cardiomegaly. Findings could represent congestion/edema versus developing infectious or inflammatory process. [1] Assessment/Plan 1. CAD IN [place] ART[place] s/p PCI 2016; s/p CABG x2 11/23/21, EF55% No ASA or statin secondary to allergy, Coreg dose increased On Bumex and KCl 2. Acute blood loss anemia Stable, hemoglobin 11.6/hematocrit 35.1 3. Diabetes mellitus Hgb A1c 9.7% Glucose 137 142, on sliding scale insulin and Lantus, [facility] inpatient endocrinology following 4. High blood pressure Blood pressure 118/51 121/67, Coreg dose increased today 5. Hyperlipemia No statin secondary to allergy 6. Statin intolerance 7. Hypothyroid On thyroid desiccated 8. CKD stage 3 Stable BUN and creatinine Adequate urine output 9. IBS (irritable bowel syndrome) 10. History of DVT (deep vein thrombosis) 11. History of tobacco use Quit smoking 6 years ago 12. History of gastrointestinal bleeding On Protonix 13. Hypercapnia Pulmonary has signed off She is to wear BiPAP at night although she has been refusing, encouraged to resume DuoNebs and budesonide Wean O2 Currently room air SaO2 is 90% 14. Leukocytosis WBCs 19.1 today, afebrile 15. Postoperative urinary retention Lagos reinserted yesterday Urology following Urine culture negative to date Voiding trial prior to discharge if she is unable to void or if postvoid residual is greater than 200 cc then reinsert Lagos and follow-up with urology as outpatient 16. Dysuria 17. Incontinent of urine PM Bumex dose decreased to 2 mg Aggressive pulmonary toilet Wean O2 Encouraged to wear BiPAP at night Will need outpatient sleep study BMP, CBC, chest x-ray in a.m. No further cultures needed at this time, monitor WBCs Discussed with Dr. Philippe [1] XR Chest 2 Views; NUNU FORREST MD 11/27/2021 05:39 EDT Digitally Signed by KAELYN DREW on 11/27/2021 09:00 AM [id number] Note ORIGINAL EXAMINATION: TWO XRAY VIEWS OF THE CHEST 11/27/2021 5:39 am COMPARISON: None. HISTORY: ORDERING SYSTEM PROVIDED HISTORY: Reason for Exam: abnormal breath sounds FINDINGS: Sternotomy wires are present in the chest wall. Left subclavian central venous catheter tube tip terminates in the SVC. Small bilateral effusions. Adjacent hazy airspace disease. No pneumothorax. Moderate cardiomegaly. No focal consolidation. IMPRESSION: Small bilateral effusions with adjacent hazy airspace disease. Moderate cardiomegaly. Findings could represent congestion/edema versus developing infectious or inflammatory process. Interpreted by: Nunu Forrest MD Preliminary Report By: Nunu Forrest MD Electronically signed By Nunu Forrest MD Dictated Date: 11/27/2021 7:51:00 AM Prelim Date: 11/27/2021 7:51:49 AM Sign Date: 11/27/2021 7:51:49 AM Ordering Provider: NAT DUNN [id number] Note ORIGINAL EXAMINATION: TWO XRAY VIEWS OF THE CHEST 11/27/2021 5:39 am COMPARISON: None. HISTORY: ORDERING SYSTEM PROVIDED HISTORY: Reason for Exam: abnormal breath sounds FINDINGS: Sternotomy wires are present in the chest wall. Left subclavian central venous catheter tube tip terminates in the SVC. Small bilateral effusions. Adjacent hazy airspace disease. No pneumothorax. Moderate cardiomegaly. No focal consolidation. IMPRESSION: Small bilateral effusions with adjacent hazy airspace disease. Moderate cardiomegaly. Findings could represent congestion/edema versus developing infectious or inflammatory process. Interpreted by: Nunu Forrest MD Preliminary Report By: Nunu Forrest MD Electronically signed By Nunu Forrest MD Dictated Date: 11/27/2021 7:51:00 AM Prelim Date: 11/27/2021 7:51:49 AM Sign Date: 11/27/2021 7:51:49 AM Ordering Provider: [facility]09-11-2022 Nurse Progress note Patient had increased SOB and chest pain around 2100. EKG obtained showing SR with RBBB, unchanged from prior. Dr. Kohler notified or patient status, orders obtained from CXR and ABG. Results discussedwith Dr. Kohler, order for patient to go on bipap and recheck ABG in 1 hour. Patient placed on bipap-frequently educational manager-light, requesting to come off. Patient thoroughly educated on purpose and need for bipap. Order obtained for a 1x dose of ativan to help with anxiety. While preparing medication, patient ripped off bipap stating I refuse this, I'm not wearing this anymore, placed back on 3L NC.Ativan not given. Discussed with Dr. Kohler who recommended discussing situation with pulmonology . Spoke with Dr. Carrillo- recommending to give prn duonebs Q4Hrs, if duonebs are helping may need tomake them scheduled around the clock again. Digitally Signed by Avis Peters RN on 11/26/2021 10:49 PM [id number] Note ORIGINAL EXAMINATION: ONE XRAY VIEW OF THE CHEST 11/26/2021 9:23 pm COMPARISON: Radiograph of the chest November 26, 2021 HISTORY: ORDERING SYSTEM PROVIDED HISTORY: Reason for Exam: Shortness of Breath FINDINGS: Cardiomediastinal silhouette unchanged. Sternotomy postsurgical changes. Left subclavian catheter unchanged position. Mild pulmonary vascular prominence. Unchanged infrahilar and left basilar opacities with small left effusion. Osseous structures unchanged. IMPRESSION: No significant change from prior examination. Interpreted by: Antwan Fountain Preliminary Report By: Antwan Fountain Electronically signed By Antwan Fountain Dictated Date: 11/26/2021 9:24:20 PM Prelim Date: 11/26/2021 9:26:00 PM Sign Date: 11/26/2021 9:26:00 PM Ordering Provider: [facility]09-11-2022 Note ORIGINAL EXAMINATION: ONE XRAY VIEW OF THE CHEST 11/26/2021 9:23 pm COMPARISON: Radiograph of the chest November 26, 2021 HISTORY: ORDERING SYSTEM PROVIDED HISTORY: Reason for Exam: Shortness of Breath FINDINGS: Cardiomediastinal silhouette unchanged. Sternotomy postsurgical changes. Left subclavian catheter unchanged position. Mild pulmonary vascular prominence. Unchanged infrahilar and left basilar opacities with small left effusion. Osseous structures unchanged. IMPRESSION: No significant change from prior examination. Interpreted by: Antwan Fountain Preliminary Report By: Antwan Fountain Electronically signed By Antwan Fountain Dictated Date: 11/26/2021 9:24:20 PM Prelim Date: 11/26/2021 9:26:00 PM Sign Date: 11/26/2021 9:26:00 PM Ordering Provider: [facility]09-11-2022 Endocrinology Progress note Date of Service 11/26/21 Chief Complaint DM2 Subjective Chart reviewed. Overnight events and plan of care d/w patient. She continues to report fatigue. Also states she is having some new dizziness today. She is also having some new urology complaints which prompted urology consult, insertion of [place]os. She will remain in the ICU overnight. Objective Vitals and Measurements T: 36.9 C (Oral) TMIN: 36.7 C (Oral) TMAX: 37.0 C (Oral) HR: 79(Monitored) RR: 18 BP: 116/52 BP: 123/55(Line) SpO2: 94% WT: 105.6 kg Intake and Output 7AM Yesterday to 7AM Today Intake and Output (Last 24 hours) Intake Administration Information 49.53 Oral Intake 0.00 Output Urine Voided 200.00 Urinary Catheter Output: 1280.00 Stool Count 1.00 Urine Count 4.00 Emesis Count 0.00 Total Summary Total Intake 49.53 Total Output 1480.00 Fluid Balance -1430.47 Physical Exam Alert, lying in bed, no acute distress Respirations even and unlabored, on O2 via nasal cannula Answers questions appropriately. Mood and affect normal. Weight Current Weight Dosing Weight: 102.3 kg (11/23/21) Current Weight: 105.6 kg (11/26/21) Current Weight: 107.1 kg (11/25/21) Medications Medications (35) Active Scheduled: (13) bumetanide 1 mg tablet 2 mg 2 tab(s), Oral, BID carvedilol 3.125 mg tablet 3.125 mg 1 tab(s), Oral, BIDM docusate calcium 240 mg Capsule 240 mg 1 cap(s), Oral, BID enoxaparin 40 mg/ 0.4mL syringe 40 mg 0.4 mL, Subcutaneous, qDay insulin glargine 25 unit(s) 0.25 mL, Subcutaneous (INT), qHS insulin lispro 100 units/mL Soln (3 mL) 6 unit(s) 0.06 mL, Subcutaneous, TIDAC insulin lispro 100 units/mL Soln (3 mL) Give 0-10 units/dose, Subcutaneous, achs Misc communication order Cefazolin, Miscellaneous, qDay multivitamin (Chromagen Forte) with iron Vitamin B Complex with C, Folic Acid and Iron tablet 1 tab(s), Oral, qDay mupirocin 2% Ointment 22 Gram(s) tube 1 ina, Nostril, each, BID pantoprazole 40 mg EC tablet 40 mg 1 tab(s), Oral, qDayAC potassium chloride 20 mEq ER tablet 20 mEq 1 tab(s), Oral, TIDM thyroid desiccated 60 mg tablet 60 mg 1 tab(s), Oral, qDay Continuous: (1) insulin regular 100 unit(s) + NS Premix Diluent 100 mL 100 mL, Intravenous PRN: (21) acetaminophen 325 mg Tablet 650 mg 2 tab(s), Oral, q4h Al hydrox/Mg hydrox/simethicone 200-200-20 mg/5 mL Susp UD 30 mL, Oral, q2h albuterol - ipratropium 2.5 mg-0.5 mg/3 mL Inhal Fernanda UD 3 mL, Inhalation, QIDRT bisacodyl 10 mg Suppository 10 mg 1 supp, Rectal, qDay budesonide 0.5 mg/2 mL Susp UD 0.5 mg 2 mL, Inhalation, BIDRT dextrose 50% Solution Disp syringe 50 mL 25 g 50 mL, IV Push, AsDirected dextrose 50% Solution Disp syringe 50 mL 12.5 gram(s) 25 mL, IV Push, AsDirected dextrose 50% Solution Disp syringe 50 mL 12.5 g 25 mL, IV Push, AsDirected glucagon recombinant 1 mg 1 mg 1 mL, Intramuscular, AsDirected insulin regular human recombinant 100 units/mL (3 mL) Soln 10 unit(s) 0.1 mL, IV Push, q1h magnesium hydroxide 8% Suspension 30 mL UD 30 mL, Oral, qDay magnesium sulfate 4g/50mL PMX 4 g 50 mL, IV Piggyback, AsDirected ondansetron 2 mg/ 1 mL 2 mL INJ 4 mg 2 mL, IV Push, q4h phenol topical 1.4% Spr 1 spray(s), Topical, q1h polyethylene glycol 3350 - UD packet 17 gram(s) 15 mL, Oral, qDay potassium chloride (PMX) 20 mEq 50 mL, IV Piggyback, AsDirected potassium chloride (PMX) 15 mEq 50 mL, IV Piggyback, AsDirected potassium chloride (PMX) 10 mEq 50 mL, IV Piggyback, AsDirected protamine 10 mg/mL (50 mg/5 mL) vial 50 mg 5 mL, IV Push, Once tramadol 50 mg Tablet 100 mg 2 tab(s), Oral, q4h tramadol 50 mg Tablet 50 mg 1 tab(s), Oral, q4h Lab Results 11/26 04:37 WBC: 20.3 H Hgb: 10.3 L Hct: 31.7 L Platelet: 243 Neutrophil %: 81.6 H Glucose Level: 176 H Sodium Level: 133 L Potassium Level: 4.2 BUN: 18.0 Creatinine Lvl (s): 0.68 11/25 16:48 Potassium Level: 4.3 11/25 03:59 WBC: 18.4 H Hgb: 10.3 L Hct: 31.4 L Platelet: 205 Neutrophil %: 79.6 H Glucose Level: 89 Sodium Level: 137 Potassium Level: 3.8 BUN: 13.0 Creatinine Lvl (s): 0.66 Group Detail Date Value w/Units Flags Normal Range Normal Reference Text Comment Ind Glucose Testing Blood Glucose, Capillary 11/26/2021 11:24:00 EDT 243 mg/dL HI 82-115 Glucose Testing Blood Glucose, Capillary 11/26/2021 07:35:00 EDT 165 mg/dL HI 82-115 Glucose Testing UA Glucose 11/26/2021 07:27:00 EDT 100 mg/dL ABN Glucose Testing Glucose Level 11/26/2021 04:37:00 EDT 176 mg/dL HI 82-115 Glucose Testing Blood Glucose, Capillary 11/26/2021 01:38:00 EDT 197 mg/dL HI 82-115 Glucose Testing Blood Glucose, Capillary 11/25/2021 21:55:00 EDT 153 mg/dL HI 82-115 Glucose Testing Blood Glucose, Capillary 11/25/2021 18:25:00 EDT 94 mg/dL 82-115 Glucose Testing Blood Glucose, Capillary 11/25/2021 17:00:00 EDT 107 mg/dL 82-115 Glucose Testing Blood Glucose, Capillary 11/25/2021 15:40:00 EDT 116 mg/dL HI 82-115 Glucose Testing Blood Glucose, Capillary 11/25/2021 14:45:00 EDT 94 mg/dL 82-115 Glucose Testing Blood Glucose, Capillary 11/25/2021 13:45:00 EDT 96 mg/dL 82-115 Glucose Testing Blood Glucose, Capillary 11/25/2021 12:44:00 EDT 138 mg/dL HI 82-115 EKG No qualifying data available. Assessment/Plan 1. CAD IN [place] ART[place] s/p PCI 2015; s/p CABG x2 11/23/21, EF55% 2. Acute blood loss anemia 3. Diabetes mellitus Hgb A1c 9.7% 4. High blood pressure 5. Hyperlipemia 6. Statin intolerance 7. Hypothyroid 8. CKD stage 3 9. IBS (irritable bowel syndrome) 10. History of DVT (deep vein thrombosis) 11. History of tobacco use 12. History of gastrointestinal bleeding 13. Hypercapnia 14. Leukocytosis 15. Postoperative urinary retention 16. Dysuria 17. Incontinent of urine Orders: glucagon, Start: 11/25/21 17:27:00 EDT, Dose = 1 mg, = 1 mL, Intramuscular, AsDirected, PRN, Hypoglycemia, 0, 11/25/21 17:27:00 EDT glucose, Start: 11/25/21 17:27:00 EDT, Dose = 12.5 g, = 25 mL, IV Push, AsDirected, PRN, Low blood sugar, 11/25/21 17:27:00 EDT insulin glargine, Start: 11/25/21 22:00:00 EDT, Dose = 25 unit(s), = 0.25 mL, Subcutaneous (INT), qHS, Rate: 0 mL/hr, Infuse over: 0 minute(s), 11/25/21 17:28:00 EDT insulin lispro (HumaLOG), Start: 11/25/21 17:30:00 EDT, Dose = 6 unit(s), = 0.06 mL, Subcutaneous, TIDAC, 11/25/21 17:30:00 EDT insulin lispro (HumaLOG), Start: 11/25/21 22:00:00 EDT, Give 0-10 units/dose, Subcutaneous, achs, 11/25/21 17:27:00 EDT This is a 71-year-old female with past medical history of CAD status post PCI in 2016, hypothyroidism, hypertension, hyperlipidemia, irritable bowel syndrome, diabetes, history of DVT, history of tobacco use (quit 6 years ago), history of GI bleeds requiring blood transfusions, and obesity. 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 Jewell in [place] which revealed an EF of 55% with 70% stenosis of the left main and a patent stent in her right coronary artery. Shewas seen and evaluated by Dr. Philippe. On November 23, 2021, she underwent a two-vessel coronary artery bypass grafting using ADAN to LAD with a reverse saphenous vein, aortocoronary graft to the firstobtuse marginal coronary artery. She tolerated the surgery well and was was transferred to cardiovascular ICU in stable condition. Briefly required nitroprusside drip postoperatively for blood pressure control. Endocrinology consulted for diabetic management. 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 Previously established with endocrinology, Dr. Chirinos, now being managed by PCP. On home regimen of 70/30 24 units twice daily.Trial of multiple non-insulin injectables, oral agents which she has not tolerated due to GI complaints. Patient also with hypothyroidism. Elevated TSH noted 9.830. Recently transition to thyroid desiccated 60 daily due to reported intolerance of levothyroxine which she previously had been taking longstanding. Orders for the same have been reintroduced. Repeat thyroid function testing outpatient in 4 to 6 weeks Also with history of hyperlipidemia, statin intolerant. Experiences myalgia. Reportedly has trialedseveral agents. Lipid panel did result showing total cholesterol 85, triglycerides 72, HDL 34, LDL 37. Discussed with her A1c. Reviewed A1c goals, glycemic targets. Would benefit from research biologist and nurse informatics educator evaluation. Appreciate their input. She is morbidly obese with a BMI of 41. In need of better diet control, weight loss. Further discussions of the same as her clinical course progresses Last 24 hours: Transitioned off insulin drip with Lantus 25 units nightly, Humalog 6 units with meals and a 0-10 sliding scale with meals and at bedtime. Diet has transitioned from clears to ADA today morning. GFR noted, greater than 60 She is a better candidate for continuation of MDI in the outpatient setting. She does have some cost concerns and certainly compliance should be considered as a potential barrier. Unfortunately she has not tolerated multiple alternative agents including metformin, SGLT2, DPP 4 and GLP analogs. Continued outpatient follow-up with her PCP for further management as she no longer wishes to follow with endocrinology in the outpatient setting. Increase prandial insulin to 12 units tidac. Discussed plan of care with Dr. Chirinos and she is agreeable. Will continue to follow while inpatient. Time Spent Total time spent 25 minutes; greater than 50% spent in counseling and coordination of care. Digitally Signed by CRYSTAL PRESSLEY on 11/26/2021 04:48 PM [id number] Urology Consult note Date of Service 11/26/21 Reason for Consultation Urinary retention Referring Physician Dr. Kohler History of Present Illness s/p 2v CABG by Dr. Philippe on 11/23/21. Lagos was removed postop. Patient was voiding freely. She complained of dysuria. UA was negative for UTI. RFI=376 cc. [place] catheter was inserted. Patient has a history of baseline incontinence and DM. Review of Systems A 10-point review of systems was negative other than that listed in the HPI. Physical Exam Vitals and Measurements T: 36.9 C (Oral) TMIN: 36.7 C (Oral) TMAX: 37.0 C (Oral) HR: 79(Monitored) RR: 18 BP: 116/52 BP: 123/55(Line) SpO2: 94% WT: 105.6 kg Weight Current Weight Dosing Weight: 102.3 kg (11/23/21) Current Weight: 105.6 kg (11/26/21) Current Weight: 107.1 kg (11/25/21) Physical Exam: Constitutional: (1) No acute distress. Skin: (1) No suspicious rashes or lesions. Head, Ears, Nose, Mouth, and Throat: (1) Ears and nose atraumatic without lesions or masses. Neck: (1) Supple. Trachea midline. Lymphatic: (1) No anterior cervical or supraclavicular lymphadenopathy. Respiratory: (1) Normal respiratory effort without use of accessory muscles. Cardiovascular: (1) No heaves. (2) No peripheral edema in the bilateral lower extremities. Gastrointestinal: (1) Abdomen soft and nontender without masses. (2) No ventral hernias. 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 Neurologic: (1) Grossly intact sensation to light touch bilaterally. Psychiatric: (1) Alert and oriented to person, place, and time. (2) Appropriate mood and affect. Genitourinary Female: (1) Lagos in place, urine clear. Lab Results 11/26 04:37 WBC: 20.3 H Hgb: 10.3 L Hct: 31.7 L Platelet: 243 Neutrophil %: 81.6 H Glucose Level: 176 H Sodium Level: 133 L Potassium Level: 4.2 BUN: 18.0 Creatinine Lvl (s): 0.68 11/25 16:48 Potassium Level: 4.3 11/25 03:59 WBC: 18.4 H Hgb: 10.3 L Hct: 31.4 L Platelet: 205 Neutrophil %: 79.6 H Glucose Level: 89 Sodium Level: 137 Potassium Level: 3.8 BUN: 13.0 Creatinine Lvl (s): 0.66 Urinalysis UA Specimen Type: Catheter (11/26/21 07:27:00) UA Color: Yellow (11/26/21 07:27:00) UA Appear: Clear (11/26/21 07:27:00) UA Spec Grav: 1.015 (11/26/21 07:27:00) UA Glucose: 100 Abnormal (11/26/21 07:27:00) UA Bili: Negative. (11/26/21 07:27:00) UA Ketones: 15 Abnormal (11/26/21 07:27:00) UA Blood: Negative. (11/26/21 07:27:00) UA pH: 5.0 (11/26/21 07:27:00) UA Protein: Negative.1 (11/26/21 07:27:00) UA Urobilinogen: 0.2 (11/26/21 07:27:00) UA Nitrite: Negative. (11/26/21 07:27:00) UA Leuk Est: Negative. (11/26/21 07:27:00) Assessment/Plan 1. CAD IN [place] s/p PCI 2016; s/p CABG x2 11/23/21, EF55% 2. Acute blood loss anemia 3. Diabetes mellitus Hgb A1c 9.7% 4. High blood pressure 5. Hyperlipemia 6. Statin intolerance 7. Hypothyroid 8. CKD stage 3 9. IBS (irritable bowel syndrome) 10. History of DVT (deep vein thrombosis) 11. History of tobacco use 12. History of gastrointestinal bleeding 13. Hypercapnia 14. Leukocytosis 15. Postoperative urinary retention Acute urinary retention - postoperative. I counseled the patient that the urinary retention may be multifactorial due to acute issues (i.e. anesthesia, narcotic pain medications, constipation, relative immobility) and chronic problems (i.e. DM, etc). I recommend continuing the indwelling [place] catheter for now. I recommend the following general measures: prophylactically treat constipation; avoidnarcotics and anticholinergic medications (e.g. Benadryl); and encourage ambulation as the patient's condition allows. Another voiding trial may be attempted prior to discharge. If the patient is unable to void or if the PVR>200cc, then a [place] catheter should be re-inserted and changed every 4 weeks pending outpatient follow up with urology. 16. Dysuria No UTI on UA. Likely due to #15. 17. Incontinent of urine It is unclear if this was due to stress, urge or overflow. The patient will need PVR assessment as an outpatient to rule out overflow. Problem List/Past Medical History Ongoing Bronchitis CAD IN [place] CARDIOGENIC SHOCK CHEST PAIN IN ADULT CKD stage 3 CONGESTIVE HEART FAILURE, UNSPECIFIED CONGESTIVE HEART FAILURE CHRONICITY, UNSPECIFIED CONGESTIVE HEART FAILURE TYPE Coronary artery disease Diabetes mellitus DVT (deep vein thrombosis) in Dysphagia Dysuria FATIGUE Former tobacco use H/O irritable bowel syndrome Heart attack High blood pressure History of DVT (deep vein thrombosis) History of gastrointestinal bleeding HISTORY OF [facility] ELEVATION MYOCARDIAL INFARCTION (STEMI) History of tobacco use Hypercapnia Hyperlipemia Hypertension Hypothyroid IBS (irritable bowel syndrome) Incontinent of urine Leukocytosis Non-compliance OBESITY Perforated ulcer Polyneuropathy Postoperative urinary retention Statin intolerance Type 2 diabetes mellitus uncontrolled Urinary tract infection VITAMIN D DEFICIENCY Historical No qualifying data Procedure/Surgical History CABG (Coronary artery bypass grafting) planned: 11/23/21 CABG x 2 - Coronary artery bypass grafts x 2 using ADAN and Right Saphenous Vein Graft: 11/23/21 Cardiac catheterization: 09/05/21 Stent placement: 01/03/16 Hysterectomy H/O: tubal ligation Colonoscopy EGD - Esophagogastroduodenoscopy Medications Inpatient acetaminophen, 650 mg= 2 tab(s), Oral, q4h, PRN budesonide 0.5 mg/2 mL inhalation suspension, 0.5 mg= 2 mL, Inhalation, BIDRT, PRN Bumex, 2 mg= 2 tab(s), Oral, BID Coreg, 3.125 mg= 1 tab(s), Oral, BIDM Dextrose, 12.5 gram(s)= 25 mL, IV Push, AsDirected, PRN Dextrose 50% IV Push, 12.5 gram(s)= 25 mL, IV Push, AsDirected, PRN Dulcolax Laxative, 10 mg= 1 supp, Rectal, qDay, PRN DuoNeb, 3 mL, Inhalation, QIDRT, PRN enoxaparin, 40 mg= 0.4 mL, Subcutaneous, qDay GlucaGen, 1 mg= 1 mL, Intramuscular, AsDirected, PRN glucose, 25 gram(s)= 50 mL, IV Push, AsDirected, PRN HumaLOG 100 units/mL subcutaneous solution, 6 unit(s)= 0.06 mL, Subcutaneous, TIDAC HumaLOG 100 units/mL subcutaneous solution, Give 0-10 units/dose, Subcutaneous, achs Insulin Regular for IV 100 unit(s) + NS Premix Diluent 100 mL insulin regular human recombinant 100 units/mL injectable solution, 10 unit(s)= 0.1 mL, IV Push, q1h, PRN KCL, 20 mEq= 1 tab(s), Oral, TIDM Lantus, 25 unit(s)= 0.25 mL, Subcutaneous (INT), qHS Maalox, 30 mL, Oral, q2h, PRN magnesium sulfate, 4 gram(s)= 50 mL, IV Piggyback, AsDirected, PRN Milk of Magnesia, 30 mL, Oral, qDay, PRN Miralax Powder Packet, 17 gram(s)= 15 mL, Oral, qDay, PRN Multiple Vitamins with Iron oral tablet, 1 tab(s), Oral, qDay mupirocin 2% topical ointment, 1 ina, Nostril, each, BID Pharmacy See ORDER COMMENTS, Cefazolin, Miscellaneous, qDay potassium chloride bolus, 20 mEq= 50 mL, IV Piggyback, AsDirected, PRN potassium chloride bolus, 15 mEq= 50 mL, IV Piggyback, AsDirected, PRN potassium chloride bolus, 10 mEq= 50 mL, IV Piggyback, AsDirected, PRN protamine, 50 mg= 5 mL, IV Push, Once, PRN Protonix, 40 mg= 1 tab(s), Oral, qDayAC Sore Throat [place], 1 spray(s), Topical, q1h, PRN Surfak Stool Softener, 240 mg= 1 cap(s), Oral, BID thyroid desiccated, 60 mg= 1 tab(s), Oral, qDay traMADol, 100 mg= 2 tab(s), Oral, q4h, PRN traMADol, 50 mg= 1 tab(s), Oral, q4h, PRN Zofran, 4 mg= 2 mL, IV Push, q4h, PRN Home carvedilol 3.125 mg oral tablet, 3.125 mg= 1 tab(s), Oral, BID nitroglycerin 0.4 mg sublingual tablet, 0.4 mg= 1 tab(s), Sublingual, q5min, PRN, 3 refills NovoLOG Mix 70/30 FlexPen 3 mL Pen, See Instructions thyroid desiccated 60 mg oral tablet, 60 mg= 1 tab(s), Oral, qDay Allergies Invokana (Stomach Pains, Diarrhea) Statins Trulicity alogliptin (Hives) aspirin (blood clots) glipiZIDE extended release levothyroxine (Rash, Diarrhea) metFORMIN (Diarrhea) penicillin (Swelling) Social History Smoking Status - 12/20/2016 Former smoker Alcohol - Denies Alcohol Use, 12/20/2016 Use: Never., 04/14/2019 Employment/School Status: Retired., 10/10/2021 Home/Environment Domestic Concerns: None. Living situation: Home/Independent. Lives In: Apartment. Current Home Treatments Blood Glucose monitoring, Blood Pressure monitoring. Marital Status: Unmarried., 10/10/2021 Nutrition/Health Type of diet: Regular. Appetite Good. Eating Difficulties None., 10/31/2021 Substance Abuse - Denies Substance Abuse, 12/20/2016 Use: Never., 04/14/2019 Tobacco Nicotine Use: Former smoker, quit more than 30 days ago. Type: Cigarettes. Tobacco use per day: 1. Number of years: 35. Total pack years: 35. Stopped at age: 55 Years., 10/31/2021 Nicotine Use: Former smoker, quit more than 30 days ago., 04/14/2019 Family History Aneurysm: Father. COPD - Chronic obstructive pulmonary disease: Sister. Cancer: Sister. Cardiac pacemaker: Brother. Diabetes mellitus: Sister. Heart attack: Mother. Heart attack 14-Sep-2015 02:33:12<$>: Mother and Brother. Heart disease: Brother. Stroke: Father. Digitally Signed by SAQIB FRASER MD on 11/26/2021 11:01 AM [id number] Progress note Date of Service 11/26/2021 Chief Complaint 71-year-old female with past medical history of CAD status post PCI in 2016, hypothyroidism, hypertension, hyperlipidemia, irritable bowel syndrome, diabetes, history of DVT, history of tobacco use (quit 6 years ago), history of GI bleeds requiring blood transfusions, and obesity. 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 Jewell in [place] which revealed an EF of 55% with 70% stenosis of the left main and a patent stent in her right coronary artery. She was seen and evaluated by Dr. Philippe. On November 23, 2021, she underwent a two-vessel coronary artery bypass grafting using ADAN to LAD with a reverse saphenous vein, aortocoronary graft to the first obtuse marginal coronary artery. She tolerated the surgery well and was was transferred to cardiovascular ICUin stable condition. Briefly required nitroprusside drip postoperatively for blood pressure control. Liberated from mechanical ventilator operative night. Postextubation arterial blood gases revealedelevated CO2 levels in the 50s with pHs 7.2-7.3. Patient's blood gases normalized on BiPAP and receiving duo nebs along with budesonide. Overnight the patient declined to wear noninvasive positive pressure ventilation. She is also declining mobilization and sitting up in the chair this morning. Patient reports no improvement with the administration of bronchodilators. The patient is complaining of dizziness but is without cough, sputum production, diarrhea, fevers. She has a persistent leukocytosis Objective Vitals and Measurements T: 36.9 C (Oral) TMIN: 36.7 C (Oral) TMAX: 37.0 C (Oral) HR: 79(Monitored) RR: 18 BP: 116/52 BP: 123/55(Line) SpO2: 94% WT: 105.6 kg Intake and Output 7AM Yesterday to 7AM Today Intake and Output (Last 24 hours) Intake Administration Information 49.53 Oral Intake 0.00 Output Urine Voided 200.00 Urinary Catheter Output: 1280.00 Stool Count 1.00 Urine Count 4.00 Emesis Count 0.00 Total Summary Total Intake 49.53 Total Output 1480.00 Fluid Balance -1430.47 Physical Exam Constitutional: Alert, oriented, appropriate HEENT: Normocephalic, atraumatic Lungs: Decreased air entry bilaterally at the bases. No wheezing. Heart: Normal sinus rhythm, S1-S2, no murmur, no rub : Indwelling [place] catheter in place draining clear yellow urine Extremities: Well perfused, pedal pulses +1 bilaterally, no lower leg edema, Left subclavian triple-lumen; right brachial arterial line Integumentary: Midline sternal incision dressing intact with clean dressing. Minimally tender; right lower leg surgical incisions dressed and intact Weight Current Weight Dosing Weight: 102.3 kg (11/23/21) Current Weight: 105.6 kg (11/26/21) Current Weight: 107.1 kg (11/25/21) Medications Medications (35) Active Scheduled: (15) albuterol - ipratropium 2.5 mg-0.5 mg/3 mL Inhal Fernanda UD 3 mL, Inhalation, QIDRT budesonide 0.5 mg/2 mL Susp UD 0.5 mg 2 mL, Inhalation, BIDRT bumetanide 1 mg tablet 2 mg 2 tab(s), Oral, BID carvedilol 3.125 mg tablet 3.125 mg 1 tab(s), Oral, BIDM docusate calcium 240 mg Capsule 240 mg 1 cap(s), Oral, BID enoxaparin 40 mg/ 0.4mL syringe 40 mg 0.4 mL, Subcutaneous, qDay insulin glargine 25 unit(s) 0.25 mL, Subcutaneous (INT), qHS insulin lispro 100 units/mL Soln (3 mL) 6 unit(s) 0.06 mL, Subcutaneous, TIDAC insulin lispro 100 units/mL Soln (3 mL) Give 0-10 units/dose, Subcutaneous, achs Misc communication order Cefazolin, Miscellaneous, qDay multivitamin (Chromagen Forte) with iron Vitamin B Complex with C, Folic Acid and Iron tablet 1 tab(s), Oral, qDay mupirocin 2% Ointment 22 Gram(s) tube 1 ina, Nostril, each, BID pantoprazole 40 mg EC tablet 40 mg 1 tab(s), Oral, qDayAC potassium chloride 20 mEq ER tablet 20 mEq 1 tab(s), Oral, TIDM thyroid desiccated 60 mg tablet 60 mg 1 tab(s), Oral, qDay Continuous: (1) insulin regular 100 unit(s) + NS Premix Diluent 100 mL 100 mL, Intravenous PRN: (19) acetaminophen 325 mg Tablet 650 mg 2 tab(s), Oral, q4h Al hydrox/Mg hydrox/simethicone 200-200-20 mg/5 mL Susp UD 30 mL, Oral, q2h bisacodyl 10 mg Suppository 10 mg 1 supp, Rectal, qDay dextrose 50% Solution Disp syringe 50 mL 25 g 50 mL, IV Push, AsDirected dextrose 50% Solution Disp syringe 50 mL 12.5 gram(s) 25 mL, IV Push, AsDirected dextrose 50% Solution Disp syringe 50 mL 12.5 g 25 mL, IV Push, AsDirected glucagon recombinant 1 mg 1 mg 1 mL, Intramuscular, AsDirected insulin regular human recombinant 100 units/mL (3 mL) Soln 10 unit(s) 0.1 mL, IV Push, q1h magnesium hydroxide 8% Suspension 30 mL UD 30 mL, Oral, qDay magnesium sulfate 4g/50mL PMX 4 g 50 mL, IV Piggyback, AsDirected ondansetron 2 mg/ 1 mL 2 mL INJ 4 mg 2 mL, IV Push, q4h phenol topical 1.4% Spr 1 spray(s), Topical, q1h polyethylene glycol 3350 - UD packet 17 gram(s) 15 mL, Oral, qDay potassium chloride (PMX) 20 mEq 50 mL, IV Piggyback, AsDirected potassium chloride (PMX) 15 mEq 50 mL, IV Piggyback, AsDirected potassium chloride (PMX) 10 mEq 50 mL, IV Piggyback, AsDirected protamine 10 mg/mL (50 mg/5 mL) vial 50 mg 5 mL, IV Push, Once tramadol 50 mg Tablet 100 mg 2 tab(s), Oral, q4h tramadol 50 mg Tablet 50 mg 1 tab(s), Oral, q4h Lab Results 11/26 04:37 WBC: 20.3 H Hgb: 10.3 L Hct: 31.7 L Platelet: 243 Neutrophil %: 81.6 H Glucose Level: 176 H Sodium Level: 133 L Potassium Level: 4.2 BUN: 18.0 Creatinine Lvl (s): 0.68 11/25 16:48 Potassium Level: 4.3 11/25 03:59 WBC: 18.4 H Hgb: 10.3 L Hct: 31.4 L Platelet: 205 Neutrophil %: 79.6 H Glucose Level: 89 Sodium Level: 137 Potassium Level: 3.8 BUN: 13.0 Creatinine Lvl (s): 0.66 EKG No qualifying data available. Assessment/Plan 1. CAD IN [place] ART[place] s/p PCI 2015; s/p CABG x2 11/23/21, EF55% 2. Acute blood loss anemia 3. Diabetes mellitus Hgb A1c 9.7% 4. High blood pressure 5. Hyperlipemia 6. Statin intolerance 7. Hypothyroid 8. CKD stage 3 9. IBS (irritable bowel syndrome) 10. History of DVT (deep vein thrombosis) 11. History of tobacco use 12. History of gastrointestinal bleeding 13. Hypercapnia 14. Leukocytosis 15. Postoperative urinary retention 16. Dysuria Plan: 1. De-escalate duo nebs to an as-needed basis given her history of emphysema with possible COPD. Patient reports PFTs performed years ago did not show COPD 2. Patient has declined BiPAP and will plan to discontinue. She has no evidence of overt chronic hypercapnia. 3. Unclear etiology of leukocytosis no other infectious signs at this time. Would continue to monitor 4. Increase activity as tolerated. I stressed the importance of mobilization postsurgery 5. Chest tubes have been removed. There is a small reaccumulation of pleural fluid on the left side. Management per primary team. 6. Wean nasal cannula oxygen as tolerated. Suspect atelectasis. Anticipate improvement with mobilization. Frequent incentive spirometry is a less effective alternative. Pulmonary will sign off at this point Time Spent 25 minutes Digitally Signed by DOLORES CARRILLO MD on 11/26/2021 10:48 AM [id number] Nurse Progress note Patient refusing to sit in chair for meals and refusing to ambulate per physician orders, despite education of expectations and complications from failure to do these. Digitally Signed by LARS Lopez on 11/26/2021 08:08 AM [id number] Note Date of Service 11/26/2021 Chief Complaint POD #3 This is a 71-year-old female with past medical history of CAD status post PCI in 2016, hypothyroidism, hypertension, hyperlipidemia, irritable bowel syndrome, diabetes, history of DVT, history of tobacco use (quit 6 years ago), history of GI bleeds requiring blood transfusions, and obesity. 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 Jewell in [place] which revealed an EF of 55% with 70% stenosis of the left main and a patent stent in her right coronary artery. Shewas seen and evaluated by Dr. Philippe. On November 23, 2021, she underwent a two-vessel coronary artery bypass grafting using ADAN to LAD with a reverse saphenous vein, aortocoronary graft to the firstobtuse marginal coronary artery. She tolerated the surgery well and was was transferred to cardiovascular ICU in stable condition. Briefly required nitroprusside drip postoperatively for blood pressure control. Liberated from mechanical ventilator operative night. Postextubation arterial blood gases revealed elevated CO2 levels in the 50s with pHs 7.2-7.3. Placed on BiPAP. POD #1: Remains on BiPAP. ABG this morning pH 7.29, CO2 50.9, PO2 86. Consult to pulmonary. Pulmonary suspecting bronchospasms and started budesonide and duo nebs. nitroprusside drip has been weaned off. [facility] consulted for diabetic management. Currently on 2 units insulin drip per hour. Patient states that she lives at home alone. PT/OT consulted. Start carvedilol 3.125 mg twice daily, Bumex 2 mg twice daily, and potassium 3 times daily. Keep in ICU today. POD #2: PT/OT evaluation pending. WBC increased to 18.4. T-max over last 24 hours 6.9. SPO2 90 to 92% on 2 L nasal cannula. Patient did wear BiPAP for part of night last evening. ABG this morning showing pH of 7.44, CO2 40, PO2 72.8. Chest x-ray showing persistent diffuse interstitial prominence with bibasilar patchy opacities, most likely pulmonary edema. Continue chest tubes. Dulcolax suppository and Fleet enema for bowel movement. Keep inICU to monitor respiratory status for another 24 hours. Keep arterial line. [1] POD #3: Patient hasbeen incontinent of urine and complains of dysuria. Post void residual this morning 853mL. We will insert indwelling [place] catheter, obtain urinalysis and urine culture, and consult [facility]. WBC 20.3 this morning. Chest x-ray this morning showing congestion/edema versus developing infectious or inflammatory process. Repeat CBC at 4 PM. Discontinue A-line. Keep in ICU Subjective Patient resting comfortably in bed. States that her pain is significantly improved since yesterday after removal of chest tubes. Denies any shortness of breath. Does complain of mild dysuria. Objective Vitals and Measurements T: 36.9 C (Oral) TMIN: 36.7 C (Oral) TMAX: 37.1 C (Oral) HR: 88(Monitored) RR: 20 BP: 91/48 BP: 147/65(Line) SpO2: 93% WT: 107.1 kg Intake and Output 7AM Yesterday to 7AM Today Intake and Output (Last 24 hours) Intake Administration Information 49.53 Oral Intake 0.00 Output Urine Voided 200.00 Urinary Catheter Output: 400.00 Stool Count 1.00 Urine Count 4.00 Emesis Count 0.00 Total Summary Total Intake 49.53 Total Output 600.00 Fluid Balance -550.47 Physical Exam Constitutional: Alert, oriented, appropriate HEENT: Normocephalic, atraumatic Lungs: Unlabored, shallow respirations, lung sounds diminished bilaterally, SPO2 93 to 95% on 4 L nasal cannula Heart: Normal sinus rhythm, S1-S2 no murmur or rub, heart rate ranging 84-88, temporary A and V pacer wires intact Abdomen: Soft, obese, nontender, bowel sounds present, positive bowel movement 11/25/2021 : Positive bladder distention Extremities: Well perfused, pedal pulses +1 bilaterally, +1 bilateral lower leg edema Integumentary: Midline sternal incision dressing intact, edges well approximated, no drainage, padmini intact; right lower leg surgical incisions open air, edges well approximated, no drainage Central venous access: Left subclavian triple-lumen, right brachial arterial line Disposition: Plan pending, PT and OT recommending inpatient therapy. Weight Current Weight Dosing Weight: 102.3 kg (11/23/21) Current Weight: 107.1 kg (11/25/21) Current Weight: 107.5 kg (11/24/21) Medications Medications (35) Active Scheduled: (15) albuterol - ipratropium 2.5 mg-0.5 mg/3 mL Inhal Fernanda UD 3 mL, Inhalation, QIDRT budesonide 0.5 mg/2 mL Susp UD 0.5 mg 2 mL, Inhalation, BIDRT bumetanide 1 mg tablet 2 mg 2 tab(s), Oral, BID carvedilol 3.125 mg tablet 3.125 mg 1 tab(s), Oral, BIDM docusate calcium 240 mg Capsule 240 mg 1 cap(s), Oral, BID enoxaparin 40 mg/ 0.4mL syringe 40 mg 0.4 mL, Subcutaneous, qDay insulin glargine 25 unit(s) 0.25 mL, Subcutaneous (INT), qHS insulin lispro 100 units/mL Soln (3 mL) 6 unit(s) 0.06 mL, Subcutaneous, TIDAC insulin lispro 100 units/mL Soln (3 mL) Give 0-10 units/dose, Subcutaneous, achs Misc communication order Cefazolin, Miscellaneous, qDay multivitamin (Chromagen Forte) with iron Vitamin B Complex with C, Folic Acid and Iron tablet 1 tab(s), Oral, qDay mupirocin 2% Ointment 22 Gram(s) tube 1 ina, Nostril, each, BID pantoprazole 40 mg EC tablet 40 mg 1 tab(s), Oral, qDayAC potassium chloride 20 mEq ER tablet 20 mEq 1 tab(s), Oral, TIDM thyroid desiccated 60 mg tablet 60 mg 1 tab(s), Oral, qDay Continuous: (1) insulin regular 100 unit(s) + NS Premix Diluent 100 mL 100 mL, Intravenous PRN: (19) acetaminophen 325 mg Tablet 650 mg 2 tab(s), Oral, q4h Al hydrox/Mg hydrox/simethicone 200-200-20 mg/5 mL Susp UD 30 mL, Oral, q2h bisacodyl 10 mg Suppository 10 mg 1 supp, Rectal, qDay dextrose 50% Solution Disp syringe 50 mL 25 g 50 mL, IV Push, AsDirected dextrose 50% Solution Disp syringe 50 mL 12.5 gram(s) 25 mL, IV Push, AsDirected dextrose 50% Solution Disp syringe 50 mL 12.5 g 25 mL, IV Push, AsDirected glucagon recombinant 1 mg 1 mg 1 mL, Intramuscular, AsDirected insulin regular human recombinant 100 units/mL (3 mL) Soln 10 unit(s) 0.1 mL, IV Push, q1h magnesium hydroxide 8% Suspension 30 mL UD 30 mL, Oral, qDay magnesium sulfate 4g/50mL PMX 4 g 50 mL, IV Piggyback, AsDirected ondansetron 2 mg/ 1 mL 2 mL INJ 4 mg 2 mL, IV Push, q4h phenol topical 1.4% Spr 1 spray(s), Topical, q1h polyethylene glycol 3350 - UD packet 17 gram(s) 15 mL, Oral, qDay potassium chloride (PMX) 20 mEq 50 mL, IV Piggyback, AsDirected potassium chloride (PMX) 15 mEq 50 mL, IV Piggyback, AsDirected potassium chloride (PMX) 10 mEq 50 mL, IV Piggyback, AsDirected protamine 10 mg/mL (50 mg/5 mL) vial 50 mg 5 mL, IV Push, Once tramadol 50 mg Tablet 100 mg 2 tab(s), Oral, q4h tramadol 50 mg Tablet 50 mg 1 tab(s), Oral, q4h Lab Results 11/26 04:37 WBC: 20.3 H Hgb: 10.3 L Hct: 31.7 L Platelet: 243 Neutrophil %: 81.6 H Glucose Level: 176 H Sodium Level: 133 L Potassium Level: 4.2 BUN: 18.0 Creatinine Lvl (s): 0.68 11/25 16:48 Potassium Level: 4.3 11/25 03:59 WBC: 18.4 H Hgb: 10.3 L Hct: 31.4 L Platelet: 205 Neutrophil %: 79.6 H Glucose Level: 89 Sodium Level: 137 Potassium Level: 3.8 BUN: 13.0 Creatinine Lvl (s): 0.66 Imaging Results and Diagnostics XR Chest 1 View Result Date: November 26, 2021 Verified By: NUNU FORREST MD CLINICAL STATEMENT: IMPRESSION: Findings suggestive of congestion/edema versus a developing infectious or inflammatory process. EKG No qualifying data available. Assessment/Plan 1. CAD IN [place] s/p PCI 2015; s/p CABG x2 11/23/21, EF55% Normal sinus rhythm. Heart rate ranging 84-88. Blood pressures ranging 127/66- 147/65. No aspirin orstatin secondary to allergies. On carvedilol. Weight down 1.5 kg since yesterday. On Bumex/KCl. 2. Acute blood loss anemia H&H 10.3 and 31.7. 3. Diabetes mellitus Hgb A1c 9.7% Followed by [facility]. Glucoses ranging 94-209. On Humalog sliding scale insulin, Lantus 4. High blood pressure Blood pressures ranging 127/66-1407/65. On carvedilol. 5. Hyperlipemia No statin secondary to allergies. Patient states that she has attempted several statins in the pastwhich has caused severe myalgia 6. Statin intolerance 7. Hypothyroid On thyroid desiccated 8. CKD stage 3 BUN and creatinine 18 and 0.68. Inaccurate output measurements due to incontinence. 9. IBS (irritable bowel syndrome) On no home medications 10. History of DVT (deep vein thrombosis) 11. History of tobacco use Patient reports that she quit smoking 6 years ago 12. History of gastrointestinal bleeding Patient states that she developed gastrointestinal bleeding requiring further transfusions in the past secondary to aspirin 13. Hypercapnia Followed by pulmonary. Patient is to wear BiPAP at night and with naps however patient refused wearing BiPAP last evening. On duo nebs and budesonide. ABG this morning pH 7.39, CO2 48, PO2 103 on 4 Lnasal cannula. 14. Leukocytosis WBC increased to 20.3 from 18.4 yesterday. Patient has been afebrile over the last 24 hours. Chest x-ray from this morning showing congestion/edema versus developing infectious or inflammatory process. 15. Postoperative urinary retention Patient has been having incontinence since removal of [place] catheter. She does state that she has urinary incontinence over the past 1 year and she does not take any home medications for this. Initial bladder scan this morning revealed 998 cc. Patient urinated 200 cc and then a postvoid residual revealed 853 cc. We will insert indwelling [place] catheter and consult [facility]. I extensively discussed with the patient potential causes of postoperative urinary retention including recent anesthesia use, pain medication, decreased physical mobility, possible UTI, and possible neurogenic bladder secondary to diabetes. 16. Dysuria Patient reports mild dysuria when able to urinate. She has been noted to have significant postvoid residual of 853 cc. We will obtain urine sample for urinalysis and urine culture upon insertion of indwelling [place] catheter. Plan: Insert indwelling [place] catheter Obtain catheterized urinalysis and urine culture Consult [facility] Highly encouraged aggressive pulmonary toileting with the use of incentive spirometry and Acapella. Repeat CBC at 4 PM Discontinue arterial line Keep in ICU Fourth day studies in a.m. Patient seen and discussed with Dr. Kohler. Dr. Kohler did request to have peripheral IV access obtained and the left subclavian triple-lumen discontinued and cultured tip. He also requested blood cultures from the triple-lumen and peripheral site as well as sputum culture. After discussion with Dr. Philippe, Dr. Philippe does not wish to have triple-lumen discontinued or blood cultures, catheter culture, or sputum culture obtained. This note was generated using a voice recognition system. As a result, errors are possible and common, including incorrect words, spellings, grammar, gender, phrases, and punctuation that may be out of context or that were missed in checking this note before saving. Reasonable effort is made to correct such errors, but with demands of normal work flow, many are missed. [1] Progress Note; NAT DUNN 11/25/2021 07:32 EDT Digitally Signed by NAT DUNN on 11/26/2021 10:49 AM [id number] Note ORIGINAL EXAMINATION: ONE XRAY VIEW OF THE CHEST 11/26/2021 6:31 am COMPARISON: None. HISTORY: ORDERING SYSTEM PROVIDED HISTORY: Reason for Exam: Hypoxia FINDINGS: Cardiomediastinal silhouette is mildly enlarged. Hazy airspace disease at the lung bases. Mild central vascular prominence is suspected. Left subclavian central venous catheter tube tip terminates in the SVC. Sternotomy wires are present in the chest wall. No pneumothorax. Possible tiny left effusion. IMPRESSION: Findings suggestive of congestion/edema versus a developing infectious or inflammatory process. Interpreted by: Nunu Forrest MD Preliminary Report By: Nunu Forrest MD Electronically signed By Nunu Forrest MD Dictated Date: 11/26/2021 6:33:58 AM Prelim Date: 11/26/2021 6:50:40 AM Sign Date: 11/26/2021 6:50:40 AM Ordering Provider: NAT DUNN [id number] Note ORIGINAL EXAMINATION: ONE XRAY VIEW OF THE CHEST 11/26/2021 6:31 am COMPARISON: None. HISTORY: ORDERING SYSTEM PROVIDED HISTORY: Reason for Exam: Hypoxia FINDINGS: Cardiomediastinal silhouette is mildly enlarged. Hazy airspace disease at the lung bases. Mild central vascular prominence is suspected. Left subclavian central venous catheter tube tip terminates in the SVC. Sternotomy wires are present in the chest wall. No pneumothorax. Possible tiny left effusion. IMPRESSION: Findings suggestive of congestion/edema versus a developing infectious or inflammatory process. Interpreted by: Nunu Forrest MD Preliminary Report By: Nunu Forrest MD Electronically signed By Nunu Forrest MD Dictated Date: 11/26/2021 6:33:58 AM Prelim Date: 11/26/2021 6:50:40 AM Sign Date: 11/26/2021 6:50:40 AM Ordering Provider: NAT [facility]09-10-2022 Endocrinology Progress note Date of Service 11/25/21 Chief Complaint Diabetic management, labile glucose trends Subjective Chart reviewed. Overnight events and plan of care d/w patient and RN. Variable glucose overnight despite use of insulin drip. She had actually been off the insulin drip around 5 AM until 7 or 8 AM this morning. Trends been dramatically increased with drip requirements over 10 units an hour, this is being tapered back down. She remains only on a clear liquid diet and only had a Jell-O this morning for breakfast Objective Vitals and Measurements T: 37.1 C (Oral) TMIN: 36.7 C (Axillary) TMAX: 37.1 C (Oral) HR: 76 RR: 20 BP: 125/71 BP: 128/55(Line) SpO2: 91% WT: 107.1 kg Intake and Output 7AM Yesterday to 7AM Today Intake and Output (Last 24 hours) Intake Other Intake 146.00 Administration Information 49.27 Oral Intake 1530.00 Output Chest Tube Output: 260.00 Urinary Catheter Output: 1750.00 Stool Count 0.00 Urine Count 2.00 Total Summary Total Intake 1725.27 Total Output 2010.00 Fluid Balance -284.73 Physical Exam Alert, lying in bed, no acute distress Respirations even and unlabored, on aerosol mask Answers questions appropriately. Mood and affect normal. Weight Current Weight Dosing Weight: 102.3 kg (11/23/21) Current Weight: 107.1 kg (11/25/21) Current Weight: 107.5 kg (11/24/21) Medications Medications (30) Active Scheduled: (13) albuterol - ipratropium 2.5 mg-0.5 mg/3 mL Inhal Fernanda UD 3 mL, Inhalation, QIDRT budesonide 0.5 mg/2 mL Susp UD 0.5 mg 2 mL, Inhalation, BIDRT bumetanide 1 mg tablet 2 mg 2 tab(s), Oral, BID carvedilol 3.125 mg tablet 3.125 mg 1 tab(s), Oral, BIDM docusate calcium 240 mg Capsule 240 mg 1 cap(s), Oral, BID enoxaparin 40 mg/ 0.4mL syringe 40 mg 0.4 mL, Subcutaneous, qDay Misc communication order Cefazolin, Miscellaneous, qDay multivitamin (Chromagen Forte) with iron Vitamin B Complex with C, Folic Acid and Iron tablet 1 tab(s), Oral, qDay mupirocin 2% Ointment 22 Gram(s) tube 1 ina, Nostril, each, BID pantoprazole 40 mg EC tablet 40 mg 1 tab(s), Oral, qDayAC potassium chloride 20 mEq ER tablet 20 mEq 1 tab(s), Oral, TIDM sodium biphosphate-sodium phosphate 19 gm-7 gm Enema 133 mL, Rectal, Once thyroid desiccated 60 mg tablet 60 mg 1 tab(s), Oral, qDay Continuous: (1) insulin regular 100 unit(s) + NS Premix Diluent 100 mL 100 mL, Intravenous PRN: (16) acetaminophen 325 mg Tablet 650 mg 2 tab(s), Oral, q4h Al hydrox/Mg hydrox/simethicone 200-200-20 mg/5 mL Susp UD 30 mL, Oral, q2h bisacodyl 10 mg Suppository 10 mg 1 supp, Rectal, qDay dextrose 50% Solution Disp syringe 50 mL 25 g 50 mL, IV Push, AsDirected dextrose 50% Solution Disp syringe 50 mL 12.5 gram(s) 25 mL, IV Push, AsDirected insulin regular human recombinant 100 units/mL (3 mL) Soln 10 unit(s) 0.1 mL, IV Push, q1h magnesium hydroxide 8% Suspension 30 mL UD 30 mL, Oral, qDay magnesium sulfate 4g/50mL PMX 4 g 50 mL, IV Piggyback, AsDirected phenol topical 1.4% Spr 1 spray(s), Topical, q1h polyethylene glycol 3350 - UD packet 17 gram(s) 15 mL, Oral, qDay potassium chloride (PMX) 20 mEq 50 mL, IV Piggyback, AsDirected potassium chloride (PMX) 15 mEq 50 mL, IV Piggyback, AsDirected potassium chloride (PMX) 10 mEq 50 mL, IV Piggyback, AsDirected protamine 10 mg/mL (50 mg/5 mL) vial 50 mg 5 mL, IV Push, Once tramadol 50 mg Tablet 100 mg 2 tab(s), Oral, q4h tramadol 50 mg Tablet 50 mg 1 tab(s), Oral, q4h Lab Results 11/25 03:59 WBC: 18.4 H Hgb: 10.3 L Hct: 31.4 L Platelet: 205 Neutrophil %: 79.6 H Glucose Level: 89 Sodium Level: 137 Potassium Level: 3.8 BUN: 13.0 Creatinine Lvl (s): 0.66 11/24 15:30 Potassium Level: 4.0 11/24 04:15 WBC: 14.8 H Hgb: 9.6 L Hct: 29.2 L Platelet: 186 Neutrophil %: 84.1 H Glucose Level: 141 H Sodium Level: 137 Potassium Level: 4.2 BUN: 15.0 Creatinine Lvl (s): 0.67 11/24 01:03 Potassium Level: 4.7 Group Detail Date Value w/Units Flags Normal Range Normal Reference Text Comment Ind Glucose Testing Blood Glucose, Capillary 11/25/2021 11:39:00 EDT 101 mg/dL 82-115 Glucose Testing Blood Glucose, Capillary 11/25/2021 10:24:00 EDT 147 mg/dL HI 82-115 Glucose Testing Blood Glucose, Capillary 11/25/2021 09:28:00 EDT 171 mg/dL HI 82-115 Glucose Testing Blood Glucose, Capillary 11/25/2021 08:14:00 EDT 209 mg/dL HI 82-115 Glucose Testing Blood Glucose, Capillary 11/25/2021 05:59:00 EDT 69 mg/dL LOW 82-115 Glucose Testing Blood Glucose, Capillary 11/25/2021 05:07:00 EDT 67 mg/dL LOW 82-115 Glucose Testing Blood Glucose, Capillary 11/25/2021 04:04:00 EDT 87 mg/dL 82-115 Glucose Testing Glucose Level 11/25/2021 03:59:00 EDT 89 mg/dL 82-115 Glucose Testing Blood Glucose, Capillary 11/25/2021 02:58:00 EDT 79 mg/dL LOW 82-115 Glucose Testing Blood Glucose, Capillary 11/25/2021 01:58:00 EDT 73 mg/dL LOW 82-115 Glucose Testing Blood Glucose, Capillary 11/25/2021 00:10:00 EDT 106 mg/dL 82-115 Glucose Testing Blood Glucose, Capillary 11/24/2021 23:00:00 EDT 107 mg/dL 82-115 Glucose Testing Blood Glucose, Capillary 11/24/2021 20:40:00 EDT 83 mg/dL 82-115 Glucose Testing Blood Glucose, Capillary 11/24/2021 19:32:00 EDT 74 mg/dL LOW 82-115 Glucose Testing Blood Glucose, Capillary 11/24/2021 17:53:00 EDT 132 mg/dL HI 82-115 Glucose Testing Blood Glucose, Capillary 11/24/2021 15:35:00 EDT 119 mg/dL HI 82-115 Glucose Testing Blood Glucose, Capillary 11/24/2021 14:39:00 EDT 144 mg/dL HI 82-115 Glucose Testing Blood Glucose, Capillary 11/24/2021 13:32:00 EDT 154 mg/dL HI 82-115 Glucose Testing Blood Glucose, Capillary 11/24/2021 12:31:00 EDT 110 mg/dL 82-115 EKG No qualifying data available. Assessment/Plan 1. CAD IN [place] s/p PCI 2016; s/p CABG x2 11/23/21, EF55% 2. Acute blood loss anemia 3. Diabetes mellitus Hgb A1c 9.7% 4. High blood pressure 5. Hyperlipemia 6. Statin intolerance 7. Hypothyroid 8. CKD stage 3 9. IBS (irritable bowel syndrome) 10. History of DVT (deep vein thrombosis) 11. History of tobacco use 12. History of gastrointestinal bleeding 13. Hypercapnia 14. Leukocytosis Orders: glucose, Start: 11/24/21 13:15:00 EDT, Dose = 12.5 gram(s), = 25 mL, IV Push, AsDirected, PRN, Low blood sugar, 11/24/21 13:15:00 EDT Consult to Diabetes Education Consult to Dietitian This is a 71-year-old female with past medical history of CAD status post PCI in 2016, hypothyroidism, hypertension, hyperlipidemia, irritable bowel syndrome, diabetes, history of DVT, history of tobacco use (quit 6 years ago), history of GI bleeds requiring blood transfusions, and obesity. 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 Jewell in [place] which revealed an EF of 55% with 70% stenosis of the left main and a patent stent in her right coronary artery. Shewas seen and evaluated by Dr. Philippe. On November 23, 2021, she underwent a two-vessel coronary artery bypass grafting using ADAN to LAD with a reverse saphenous vein, aortocoronary graft to the firstobtuse marginal coronary artery. She tolerated the surgery well and was was transferred to cardiovascular ICU in stable condition. Briefly required nitroprusside drip postoperatively for blood pressure control. Endocrinology consulted for diabetic management. 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 Previously established with endocrinology, Dr. Chirinos, now being managed by PCP. On home regimen of 70/30 24 units twice daily.Trial of multiple non-insulin injectables, oral agents which she has not tolerated due to GI complaints. Patient also with hypothyroidism. Elevated TSH noted 9.830. Recently transition to thyroid desiccated 60 daily due to reported intolerance of levothyroxine which she previously had been taking longstanding. Orders for the same have been reintroduced. Repeat thyroid function testing outpatient in 4 to 6 weeks Also with history of hyperlipidemia, statin intolerant. Experiences myalgia. Reportedly has trialedseveral agents. Lipid panel did result showing total cholesterol 85, triglycerides 72, HDL 34, LDL 37. Discussed with her A1c. Reviewed A1c goals, glycemic targets. Would benefit from research biologist and nurse informatics educator evaluation. Appreciate their input. She is morbidly obese with a BMI of 41. In need of better diet control, weight loss. Further discussions of the same as her clinical course progresses Last 24 hours: Continued on insulin drip due to variable glucose requirements. Continue to demonstrate glucose lability even on insulin drip protocol. Glucose this a.m. was 69. Drip was paused and patient subsequently had glucose over 200 with high insulin requirements. Variable trends blood glucose is slowly improving into this evening on review. After careful consideration of clinical status, oral intake, w/ thorough MAR review for vasopressor and steroid use as well as current insulin gtt patterns/needs calculations indicate need to transition off insulin drip with Lantus 10 units now, 25 units nightly with scheduled Humalog 6 units with meals Renal function noted, GFR greater than 60 Plan is for reintroduction of sq insulin, possibly MDI. She does have cost concerns with other agents in the past and has not tolerated multiple alternative agents including metformin, SGLT2, DPP 4 and GLP analogs. Continued outpatient follow-up with her PCP for further management. Discussed plan of care with Dr. Chirinos and she is agreeable. Will continue to follow while inpatient. Time Spent Total time spent 25 minutes; greater than 50% spent in counseling and coordination of care. Digitally Signed by CRYSTAL PRESSLEY on 11/25/2021 05:28 PM [id number] Pulmonary Progress note Date of Service 11/25/2021 Chief Complaint 71-year-old female with past medical history of CAD status post PCI in 2016, hypothyroidism, hypertension, hyperlipidemia, irritable bowel syndrome, diabetes, history of DVT, history of tobacco use (quit 6 years ago), history of GI bleeds requiring blood transfusions, and obesity. 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 Jewell in [place] which revealed an EF of 55% with 70% stenosis of the left main and a patent stent in her right coronary artery. She was seen and evaluated by Dr. Philippe. On November 23, 2021, she underwent a two-vessel coronary artery bypass grafting using ADAN to LAD with a reverse saphenous vein, aortocoronary graft to the first obtuse marginal coronary artery. She tolerated the surgery well and was was transferred to cardiovascular ICUin stable condition. Briefly required nitroprusside drip postoperatively for blood pressure control. Liberated from mechanical ventilator operative night. Postextubation arterial blood gases revealedelevated CO2 levels in the 50s with pHs 7.2-7.3. Now POD 2. Blood gases normalized while on BiPAP and she is appearing comfortable with normal work of breathing while on nasal cannula. Objective Vitals and Measurements T: 37.1 C (Oral) TMIN: 36.7 C (Axillary) TMAX: 37.1 C (Oral) HR: 85(Monitored) RR: 20 BP: 125/71 BP: 128/55(Line) SpO2: 93% WT: 107.1 kg Intake and Output 7AM Yesterday to 7AM Today Intake and Output (Last 24 hours) Intake Other Intake 146.00 Administration Information 49.27 Oral Intake 1530.00 Output Chest Tube Output: 317.00 Urinary Catheter Output: 3450.00 Stool Count 0.00 Urine Count 2.00 Total Summary Total Intake 1725.27 Total Output 3767.00 Fluid Balance -1.73 Physical Exam Constitutional: Alert, oriented, appropriate HEENT: Normocephalic, atraumatic Lungs: Decreased air entry bilaterally at the bases. No wheezing. Heart: Normal sinus rhythm, S1-S2, no murmur, no rub; chest tubes in place with serosanguineous drainage : Indwelling [place] catheter in place draining clear yellow urine Extremities: Well perfused, pedal pulses +1 bilaterally, no lower leg edema, Left subclavian triple-lumen; right brachial arterial line Integumentary: Midline sternal incision dressing intact with Aquacel dressing; right lower leg surgical incisions dressed and intact Weight Current Weight Dosing Weight: 102.3 kg (11/23/21) Current Weight: 107.1 kg (11/25/21) Current Weight: 107.5 kg (11/24/21) Medications Medications (30) Active Scheduled: (13) albuterol - ipratropium 2.5 mg-0.5 mg/3 mL Inhal Fernanda UD 3 mL, Inhalation, QIDRT budesonide 0.5 mg/2 mL Susp UD 0.5 mg 2 mL, Inhalation, BIDRT bumetanide 1 mg tablet 2 mg 2 tab(s), Oral, BID carvedilol 3.125 mg tablet 3.125 mg 1 tab(s), Oral, BIDM docusate calcium 240 mg Capsule 240 mg 1 cap(s), Oral, BID enoxaparin 40 mg/ 0.4mL syringe 40 mg 0.4 mL, Subcutaneous, qDay Misc communication order Cefazolin, Miscellaneous, qDay multivitamin (Chromagen Forte) with iron Vitamin B Complex with C, Folic Acid and Iron tablet 1 tab(s), Oral, qDay mupirocin 2% Ointment 22 Gram(s) tube 1 ina, Nostril, each, BID pantoprazole 40 mg EC tablet 40 mg 1 tab(s), Oral, qDayAC potassium chloride 20 mEq ER tablet 20 mEq 1 tab(s), Oral, TIDM sodium biphosphate-sodium phosphate 19 gm-7 gm Enema 133 mL, Rectal, Once thyroid desiccated 60 mg tablet 60 mg 1 tab(s), Oral, qDay Continuous: (1) insulin regular 100 unit(s) + NS Premix Diluent 100 mL 100 mL, Intravenous PRN: (16) acetaminophen 325 mg Tablet 650 mg 2 tab(s), Oral, q4h Al hydrox/Mg hydrox/simethicone 200-200-20 mg/5 mL Susp UD 30 mL, Oral, q2h bisacodyl 10 mg Suppository 10 mg 1 supp, Rectal, qDay dextrose 50% Solution Disp syringe 50 mL 25 g 50 mL, IV Push, AsDirected dextrose 50% Solution Disp syringe 50 mL 12.5 gram(s) 25 mL, IV Push, AsDirected insulin regular human recombinant 100 units/mL (3 mL) Soln 10 unit(s) 0.1 mL, IV Push, q1h magnesium hydroxide 8% Suspension 30 mL UD 30 mL, Oral, qDay magnesium sulfate 4g/50mL PMX 4 g 50 mL, IV Piggyback, AsDirected phenol topical 1.4% Spr 1 spray(s), Topical, q1h polyethylene glycol 3350 - UD packet 17 gram(s) 15 mL, Oral, qDay potassium chloride (PMX) 20 mEq 50 mL, IV Piggyback, AsDirected potassium chloride (PMX) 15 mEq 50 mL, IV Piggyback, AsDirected potassium chloride (PMX) 10 mEq 50 mL, IV Piggyback, AsDirected protamine 10 mg/mL (50 mg/5 mL) vial 50 mg 5 mL, IV Push, Once tramadol 50 mg Tablet 100 mg 2 tab(s), Oral, q4h tramadol 50 mg Tablet 50 mg 1 tab(s), Oral, q4h Lab Results 11/25 03:59 WBC: 18.4 H Hgb: 10.3 L Hct: 31.4 L Platelet: 205 Neutrophil %: 79.6 H Glucose Level: 89 Sodium Level: 137 Potassium Level: 3.8 BUN: 13.0 Creatinine Lvl (s): 0.66 11/24 15:30 Potassium Level: 4.0 11/24 04:15 WBC: 14.8 H Hgb: 9.6 L Hct: 29.2 L Platelet: 186 Neutrophil %: 84.1 H Glucose Level: 141 H Sodium Level: 137 Potassium Level: 4.2 BUN: 15.0 Creatinine Lvl (s): 0.67 11/24 01:03 Potassium Level: 4.7 EKG No qualifying data available. Assessment/Plan 1. CAD IN [place] s/p PCI 2015; s/p CABG x2 11/23/21, EF55% 2. Acute blood loss anemia 3. Diabetes mellitus Hgb A1c 9.7% 4. High blood pressure 5. Hyperlipemia 6. Statin intolerance 7. Hypothyroid 8. CKD stage 3 9. IBS (irritable bowel syndrome) 10. History of DVT (deep vein thrombosis) 11. History of tobacco use 12. History of gastrointestinal bleeding 13. Hypercapnia 14. Leukocytosis Plan: 1. Continue DuoNebs 4 times daily and budesonide twice daily given her history of emphysema with possible COPD. If she remains stable from respiratory standpoint, we may be able to switch to as needed 2. Continue BiPAP at current settings at night with sleep and with naps. 3. Anticipate the patient will not need BiPAP upon discharge as she does not have signs of chronic hypercapnia as evidenced by a chronically elevated bicarb on her chemistries. 4. Increase activity as tolerated 5. ABG in the morning 6. X-ray in the morning We will continue to follow Thank you for the consult Time Spent 20 minutes Digitally Signed by DOLORES CARRILLO MD on 11/25/2021 10:42 AM [id number] Note Date of Service 11/25/2021 Chief Complaint POD #2: This is a 71-year-old female with past medical history of CAD status post PCI in 2016, hypothyroidism, hypertension, hyperlipidemia, irritable bowel syndrome, diabetes, history of DVT, history of tobacco use (quit 6 years ago), history of GI bleeds requiring blood transfusions, and obesity. 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 Jewell in [place] which revealed an EF of 55% with 70% stenosis of the left main and a patent stent in her right coronary artery. Shewas seen and evaluated by Dr. Philippe. On November 23, 2021, she underwent a two-vessel coronary artery bypass grafting using ADAN to LAD with a reverse saphenous vein, aortocoronary graft to the firstobtuse marginal coronary artery. She tolerated the surgery well and was was transferred to cardiovascular ICU in stable condition. Briefly required nitroprusside drip postoperatively for blood pressure control. Liberated from mechanical ventilator operative night. Postextubation arterial blood gases revealed elevated CO2 levels in the 50s with pHs 7.2-7.3. Placed on BiPAP. POD #1: Remains on BiPAP. ABG this morning pH 7.29, CO2 50.9, PO2 86. Consult to pulmonary. Pulmonary suspecting bronchospasms and started budesonide and duo nebs. nitroprusside drip has been weaned off. [place] [facility] consulted for diabetic management. Currently on 2 units insulin drip per hour. Patient states that she lives at home alone. PT/OT consulted. Start carvedilol 3.125 mg twice daily, Bumex 2 mg twice daily, and potassium 3 times daily. Keep in ICU today. POD #2: PT/OT evaluation pending. WBC increased to 18.4. T-max over last 24 hours 6.9. SPO2 90 to 92% on 2 L nasal cannula. Patient did wear BiPAP for part of night last evening. ABG this morning showing pH of 7.44, CO2 40, PO2 72.8. Chest x-ray showing persistent diffuse interstitial prominence with bibasilar patchy opacities, most likely pulmonary edema. Continue chest tubes. Dulcolax suppository and Fleet enema for bowel movement. Keep inICU to monitor respiratory status for another 24 hours. Keep arterial line. Subjective Patient sitting up in chair at side of bed. Reports chest discomfort. Denies any shortness of breath. Objective Vitals and Measurements T: 36.8 C (Oral) TMIN: 36.7 C (Axillary) TMAX: 36.9 C (Axillary) HR: 82(Monitored) RR: 20 BP: 125/71 BP: 148/68(Line) SpO2: 92% WT: 107.1 kg Intake and Output 7AM Yesterday to 7AM Today Intake and Output (Last 24 hours) Intake Other Intake 146.00 Administration Information 49.27 Oral Intake 1530.00 Output Chest Tube Output: 317.00 Urinary Catheter Output: 3450.00 Stool Count 0.00 Urine Count 2.00 Total Summary Total Intake 1725.27 Total Output 3767.00 Fluid Balance -2041.73 Physical Exam Constitutional: Alert, oriented, appropriate, anxious HEENT: Normocephalic, atraumatic Lungs: Unlabored, shallow respirations, lung sounds diminished bilaterally, audible large airway wheezing. SPO2 90 to 92% on 2 L nasal cannula Heart: Normal sinus rhythm, S1-S2, no murmur, positive pericardial friction rub, heart rate [id number], temporary a and V pacer wires intact; bilateral mediastinal chest tubes Y'd together to -20 cm suction draining serosanguineous drainage (output 150 cc over last 24 hours and 40 cc over last 8hours), left pleural chest tube to -20 cm suction without evidence of air leak draining serosanguineous drainage (output 167 cc over last 24 hours and 50 cc over the last 8 hours) Abdomen: Soft, nontender, obese, bowel sounds hypoactive, no bowel movement Extremities: Well perfused, pedal pulses +1 bilaterally, +2 bilateral lower leg edema Integumentary: Midline sternal incision dressed and intact with Aquacel dressing; right lower leg surgical incisions dressed and intact Central venous access: Left subclavian triple-lumen, right brachial arterial line Disposition: Plan pending, PT/OT evaluation pending. Weight Current Weight Dosing Weight: 102.3 kg (11/23/21) Current Weight: 107.1 kg (11/25/21) Current Weight: 107.5 kg (11/24/21) Medications Medications (34) Active Scheduled: (17) acetaminophen PMX 1,000 mg 100 mL, IV Piggyback, q6hr albuterol - ipratropium 2.5 mg-0.5 mg/3 mL Inhal Fernanda UD 3 mL, Inhalation, QIDRT alteplase 2 mg REC ( 2 mg/2 mL upon reconstitution or if dispensed in a syringe ) 2 mg 2 mL, IV Push, Once alteplase 2 mg REC ( 2 mg/2 mL upon reconstitution or if dispensed in a syringe ) 2 mg 2 mL, IV Push, Once bisacodyl 10 mg Suppository 10 mg 1 supp, Rectal, Once budesonide 0.5 mg/2 mL Susp UD 0.5 mg 2 mL, Inhalation, BIDRT bumetanide 1 mg tablet 2 mg 2 tab(s), Oral, BID carvedilol 3.125 mg tablet 3.125 mg 1 tab(s), Oral, BIDM docusate calcium 240 mg Capsule 240 mg 1 cap(s), Oral, BID enoxaparin 40 mg/ 0.4mL syringe 40 mg 0.4 mL, Subcutaneous, qDay Misc communication order Cefazolin, Miscellaneous, qDay multivitamin (Chromagen Forte) with iron Vitamin B Complex with C, Folic Acid and Iron tablet 1 tab(s), Oral, qDay mupirocin 2% Ointment 22 Gram(s) tube 1 ina, Nostril, each, BID pantoprazole 40 mg EC tablet 40 mg 1 tab(s), Oral, qDayAC potassium chloride 20 mEq ER tablet 20 mEq 1 tab(s), Oral, TIDM sodium biphosphate-sodium phosphate 19 gm-7 gm Enema 133 mL, Rectal, Once thyroid desiccated 60 mg tablet 60 mg 1 tab(s), Oral, qDay Continuous: (1) insulin regular 100 unit(s) + NS Premix Diluent 100 mL 100 mL, Intravenous PRN: (16) acetaminophen 325 mg Tablet 650 mg 2 tab(s), Oral, q4h Al hydrox/Mg hydrox/simethicone 200-200-20 mg/5 mL Susp UD 30 mL, Oral, q2h bisacodyl 10 mg Suppository 10 mg 1 supp, Rectal, qDay dextrose 50% Solution Disp syringe 50 mL 25 g 50 mL, IV Push, AsDirected dextrose 50% Solution Disp syringe 50 mL 12.5 gram(s) 25 mL, IV Push, AsDirected insulin regular human recombinant 100 units/mL (3 mL) Soln 10 unit(s) 0.1 mL, IV Push, q1h magnesium hydroxide 8% Suspension 30 mL UD 30 mL, Oral, qDay magnesium sulfate 4g/50mL PMX 4 g 50 mL, IV Piggyback, AsDirected phenol topical 1.4% Spr 1 spray(s), Topical, q1h polyethylene glycol 3350 - UD packet 17 gram(s) 15 mL, Oral, qDay potassium chloride (PMX) 20 mEq 50 mL, IV Piggyback, AsDirected potassium chloride (PMX) 15 mEq 50 mL, IV Piggyback, AsDirected potassium chloride (PMX) 10 mEq 50 mL, IV Piggyback, AsDirected protamine 10 mg/mL (50 mg/5 mL) vial 50 mg 5 mL, IV Push, Once tramadol 50 mg Tablet 100 mg 2 tab(s), Oral, q4h tramadol 50 mg Tablet 50 mg 1 tab(s), Oral, q4h Lab Results 11/25 03:59 WBC: 18.4 H Hgb: 10.3 L Hct: 31.4 L Platelet: 205 Neutrophil %: 79.6 H Glucose Level: 89 Sodium Level: 137 Potassium Level: 3.8 BUN: 13.0 Creatinine Lvl (s): 0.66 11/24 15:30 Potassium Level: 4.0 11/24 04:15 WBC: 14.8 H Hgb: 9.6 L Hct: 29.2 L Platelet: 186 Neutrophil %: 84.1 H Glucose Level: 141 H Sodium Level: 137 Potassium Level: 4.2 BUN: 15.0 Creatinine Lvl (s): 0.67 11/24 01:03 Potassium Level: 4.7 11/23 19:48 Potassium Level: 4.2 Imaging Results and Diagnostics XR Chest 1 View Result Date: November 25, 2021 Verified By: NUNU FORREST MD CLINICAL STATEMENT: IMPRESSION: Persistent diffuse interstitial prominence with bibasilar patchy opacities,most likely pulmonary edema (versus less likely infection/inflammation). Grossly unchanged cardiomegaly. Low lung volumes. I have personally reviewed the images of this examination and agree with the resident's findings and interpretation. EKG Electrocardiogram - Ordered -- 11/27/21 6:00:00 EDT, On the 4th post op day Assessment/Plan 1. CAD IN [place] s/p PCI 2015; s/p CABG x2 11/23/21, EF55% Normal sinus rhythm. Heart rate ranging 75-78. Blood pressures ranging 120/54- 141/59. No aspirin secondary to allergy, no statin secondary to allergy. On carvedilol. Weight down 0.4 kg since yesterday. On Bumex/KCl. Mediastinal chest tubes drained 150 cc over last 24 hours and 40 cc over last 8 hours. Left pleural chest tube drained 167 cc over last 24 hours and 50 cc over the last 8 hours. 2. Acute blood loss anemia H&H 10.3 and 31.4. No signs of active bleeding 3. Diabetes mellitus Hgb A1c 9.7% Followed by [place] [place] inpatient endocrinology. Glucoses ranging 67-154. No longer requiring insulin drip. 4. High blood pressure Blood pressures ranging 120/54-141/59. On carvedilol. 5. Hyperlipemia No statin secondary to allergy. Patient states that she had tried several statins in the past whichcaused severe myalgia. 6. Statin intolerance 7. Hypothyroid On thyroid desiccated 8. CKD stage 3 BUN and creatinine 13 and 1.66. Urine output over last 24 hours 850 cc. 9. IBS (irritable bowel syndrome) On no home medication 10. History of DVT (deep vein thrombosis) 11. History of tobacco use Patient reports that she quit smoking 6 years ago. 12. History of gastrointestinal bleeding Patient reports that she had developed gastrointestinal bleeding after taking aspirin and had required blood transfusions at that time. 13. Hypercapnia Followed by pulmonary which is suspecting bronchospasms. On BiPAP at night. SPO2 this morning 90 to92% on 2 L nasal cannula. On duo nebs and budesonide. ABGs this morning on nasal cannula pH 7.44, CO2 40.3, PO2 72.8. 14. Leukocytosis WBC this morning 18.4. T-max overnight 36.9 C. Plan: DC chest tubes Dulcolax suppository and Fleet enema for bowel movement Keep arterial line Keep in ICU for another 24 hours to monitor respiratory status PT/OT evaluation pending CBC, BMP, chest x-ray in a.m. Patient seen and discussed with Dr. Kohler. This note was generated using a voice recognition system. As a result, errors are possible and common, including incorrect words, spellings, grammar, gender, phrases, and punctuation that may be out of context or that were missed in checking this note before saving. Reasonable effort is made to correct such errors, but with demands of normal work flow, many are missed. Digitally Signed by NAT DUNN on 11/25/2021 10:54 AM [id number] Note ORIGINAL EXAMINATION: ONE XRAY VIEW OF THE CHEST11/25/2021 6:04 am COMPARISON: 11/24/2021 HISTORY: ORDERING SYSTEM PROVIDED HISTORY: Reason for Exam: decreased breath sounds FINDINGS: There are median sternotomy wires, surgical padmini, left-sided subclavian venous catheter, mediastinal drain, and a left-sided chest tube. Low lung volumes. Mild cardiomegaly is grossly unchanged. There are persistently prominent interstitial markings bilaterally along with patchy bibasilar opacities. There is no visible pneumothorax. No significant pleural fluid. No acute bony findings. IMPRESSION: Persistent diffuse interstitial prominence with bibasilar patchy opacities, most likely pulmonary edema (versus less likely infection/inflammation). Grossly unchanged cardiomegaly. Low lung volumes. I have personally reviewed the images of this examination and agree with the resident's findings and interpretation. Interpreted by: Nunu Forrest MD Preliminary Report By: Chico Schaeffer Electronically signed By Nunu Forrest MD Dictated Date: 11/25/2021 6:05:54 AM Prelim Date: 11/25/2021 6:09:46 AM Sign Date: 11/25/2021 6:55:32 AM Ordering Provider: [facility]09-10-2022 Note ORIGINAL EXAMINATION: ONE XRAY VIEW OF THE CHEST11/25/2021 6:04 am COMPARISON: 11/24/2021 HISTORY: ORDERING SYSTEM PROVIDED HISTORY: Reason for Exam: decreased breath sounds FINDINGS: There are median sternotomy wires, surgical padmini, left-sided subclavian venous catheter, mediastinal drain, and a left-sided chest tube. Low lung volumes. Mild cardiomegaly is grossly unchanged. There are persistently prominent interstitial markings bilaterally along with patchy bibasilar opacities. There is no visible pneumothorax. No significant pleural fluid. No acute bony findings. IMPRESSION: Persistent diffuse interstitial prominence with bibasilar patchy opacities, most likely pulmonary edema (versus less likely infection/inflammation). Grossly unchanged cardiomegaly. Low lung volumes. I have personally reviewed the images of this examination and agree with the resident's findings and interpretation. Interpreted by: Nunu Forrest MD Preliminary Report By: Chico Schaeffer Electronically signed By Nunu Forrest MD Dictated Date: 11/25/2021 6:05:54 AM Prelim Date: 11/25/2021 6:09:46 AM Sign Date: 11/25/2021 6:55:32 AM Ordering Provider: [facility]09-09-2022 Note ORIGINAL EXAMINATION: ONE XRAY VIEW OF THE CHEST11/24/2021 9:56 pm COMPARISON: Chest x-ray November 23, 2021 HISTORY: ORDERING SYSTEM PROVIDED HISTORY: Reason for Exam: abnormal breath sounds FINDINGS: Median sternotomy wires with midline surgical padmini. Left chest tube again seen. Mediastinal drain difficult to see given multiple overlying wires. Interval removal of endotracheal and enteric tube. Left subclavian central venous catheter thought to be terminating within the mid to distal SVC. The cardiomediastinal silhouette is mildly enlarged and more pronounced on this exam likely secondary to change in position and poor inspiratory effort. Low lung volumes. Prominent interstitial opacities as well as patchy bibasilar airspace opacities. No pneumothorax or significant pleural effusion. No acute osseous abnormality. IMPRESSION: Mild cardiomegaly, which appears more exaggerated on this exam likely secondary to poor inspiratory effort. Prominent interstitial markings bilaterally with patchy bibasilar airspace opacities favoring congestion/edema with developing infectious or inflammatory process not excluded. I have personally reviewed the images of this examination and agree with the resident's finding and interpretation. Interpreted by: Bear Salcedo MD Preliminary Report By: Akua Bejarano Electronically signed By Bear Salcedo MD Dictated Date: 11/24/2021 10:02:41 PM Prelim Date: 11/24/2021 10:09:45 PM Sign Date: 11/24/2021 10:21:41 PM Ordering Provider: POLLY PHILIPPE [id number] Note Result type: Cardiothoracic Surgery Office Note Result date: November 21, 2021 14:15 EDT Result status: Auth (Verified) Result title: Office Visit Note Performed by: POLLY PHILIPPE MD on November 21, 2021 14:15 EDT Verified by: POLLY PHILIPPE MD on November 21, 2021 14:15 EDT Encounter info: [id number], [facility], Office, 11/21/2021 - 11/21/2021 Chief Complaint Original consult 10-10-[address] Jewell for CABG on 11-23-2021/here today to update H&P/Okay fatigurd History of Present Illness I last saw this 71-year-old woman on October 10, 2021 for consideration for coronary bypass grafting with left main coronary artery disease. At that time I urged her to undergo surgery as soon as possible but she insisted on having the operation after due to personal reasons. Her work-up is now complete and she is ready to proceed with surgery. Her significant past medical history includessystemic hypertension, uncontrolled diabetes mellitus type 2, history of deep venous thrombosis in , and a history of ST segment elevation myocardial infarction. Her last echocardiogram showed an ejection fraction of 65%. She does have some centrilobular emphysema. She does have some athero sclerosis of the aorta. Cardiac catheterization reveals left main coronary artery disease. Her bodymass index is greater than 35. Review of Systems Ambulatory Comprehensive Intake - Specialty Office Entered On: 11/21/2021 13:39 EDT Performed On: 11/21/2021 13:29 EDT by Jennifer Padilla RN Primary Subjective AMB Chief Complaint : Original consult 10-10-[address] Jewell for CABG on 11-23-2021/here today to update H&P/Okay fatigurd Jennifer Padilla RN - 11/21/2021 13:29 EDT General Review of Systems Grid Chills : No Depressed : No Fatigue : Yes Fever : No Increase of Appetite : No Loss of Appetite : No Jennifer Padilla RN - 11/21/2021 13:29 EDT Head and Neck Review of Systems Grid Contacts : No Difficulty swallowing : Yes Glasses : Yes Sinus problems : No Jennifer Padilla RN - 11/21/2021 13:29 EDT Respiratory/Lungs Review of Systems Grid Coughing : No Coughing up blood : No Shortness of Breath : Yes Jennifer Padilla RN - 11/21/2021 13:29 EDT Skeletal Review of Systems Grid Lower Back Pain : No Neck Pain : No Jennifer Padilla RN - 11/21/2021 13:29 EDT Neuro Review of Systems Grid Dizziness : No Seizures : No Tremor(s) : No Jennifer Padilla RN - 11/21/2021 13:29 EDT Heart/Vascular Review of Systems Grid Chest pain/tightness : No Irregular Heartbeat : No Lower Leg Swelling : No Jennifer Padilla RN 11/21/2021 13:29 EDT Stomach/Bowel Review of Systems Grid Constipation : No Diarrhea : Yes Difficulty swallowing : No Jennifer Padilla RN 11/21/2021 13:29 EDT Skin,Hair Problems Review of System Grid Nonhealing Wounds : No Rash : No Jennifer Padilla RN - 11/21/2021 13:29 EDT Women Review of Systems Grid Nocturia : Yes Urinary Frequency : No Urinary Incontinence : No Urinary Hesitancy : No Urinary Retention : No Urinary Urgency : No Jenniefr Padilla RN 11/21/2021 13:29 EDT Hematology Review of Systems Grid Abnormal Bleeding : No Bleeds Easily : Yes Bruises Easily : Yes [1] Physical Exam Vitals and Measurements T: 36.6 C (Oral) HR: 78(Apical) RR: 20 BP: 155/79(Left Arm) SpO2: 94% HT: 156 cm WT: 95.4 kg BMI: 39.2 Oxygen Therapy: Room air Vitals Temperature Oral : 36.6 DegC(Converted to: 97.9 DegF) Apical Heart Rate : 78 bpm Respiratory Rate ??? : 20 br/min Systolic BP Left Arm : 155 mmHg (HI) Diastolic BP Left Arm : 79 mmHg Oxygen Therapy : Room air Oxygen Saturation : 94 % Height : 156 cm(Converted to: 5 ft 1 inch(es)) Dosing Weight : 95.4 kg(Converted to: 210 lb 5 oz) Height in inches : 61.4 inch(es) Weight Lbs : 209.9 lb Body Mass Index : 39.2 kg/m2 BSA Admission : 1.94 [2] she is in no distress. She has no obvious skin infections. Her head is normocephalic and atraumatic. She is quite obese with very large breasts. She has no carotid bruits nor neck masses. Her lungs are clear to auscultation. Her heart is a regular rate and rhythm without murmurs. Her abdomen isbenign without masses tenderness nor guarding. Her abdomen is very obese and tense. She has no peripheral clubbing cyanosis nor edema. I cannot feel pulses in her lower extremities but they are warm and dry bilaterally. She has a grossly normal motor neurologic exam. She is alert and oriented x3. Social History Smoking Status - 12/20/2016 Former smoker Alcohol - Denies Alcohol Use, 12/20/2016 Use: Never., 04/14/2019 Employment/School Status: Retired., 10/10/2021 Home/Environment Domestic Concerns: None. Living situation: Home/Independent. Lives In: Apartment. Current Home Treatments Blood Glucose monitoring, Blood Pressure monitoring. Marital Status: Unmarried., 10/10/2021 Nutrition/Health Type of diet: Regular. Appetite Good. Eating Difficulties None., 10/31/2021 Substance Abuse - Denies Substance Abuse, 12/20/2016 Use: Never., 04/14/2019 Tobacco Nicotine Use: Former smoker, quit more than 30 days ago. Type: Cigarettes. Tobacco use per day: 1. Number of years: 35. Total pack years: 35. Stopped at age: 55 Years., 10/31/2021 Nicotine Use: Former smoker, quit more than 30 days ago., 04/14/2019 Family History Aneurysm: Father. COPD - Chronic obstructive pulmonary disease: Sister. Cancer: Sister. Cardiac pacemaker: Brother. Diabetes mellitus: Sister. Heart attack: Mother. Heart attack 14-Sep-2015 02:33:12<$>: Mother and Brother. Heart disease: Brother. Stroke: Father. Assessment/Plan 1. Coronary artery disease 2. Diabetes mellitus 3. HISTORY OF ST ELEVATION MYOCARDIAL INFARCTION (STEMI) 4. High blood pressure 5. Hyperlipemia In assessment, she is now ready to proceed with coronary artery bypass grafting. I do not have any current data on her diabetes mellitus, nor her hyperlipidemia. Her blood pressure appears to be wellcontrolled. I had a very thorough discussion with her and her sister concerning the procedure altern atives and risk. The risk include , myocardial infarction, stroke, cognitive deficit, renal failure, bleeding, transfusion, infection, and other possible major morbidity. Answered all her questions. She desires to proceed as planned. Problem List/Past Medical History Ongoing Bronchitis CAD IN [place] ART[place] CARDIOGENIC SHOCK CHEST PAIN IN ADULT CKD stage 3 CONGESTIVE HEART FAILURE, UNSPECIFIED CONGESTIVE HEART FAILURE CHRONICITY, UNSPECIFIED CONGESTIVE HEART FAILURE TYPE Coronary artery disease Diabetes mellitus DVT (deep vein thrombosis) in Dysphagia FATIGUE Former tobacco use H/O irritable bowel syndrome Heart attack High blood pressure HISTORY OF ST ELEVATION MYOCARDIAL INFARCTION (STEMI) Hyperlipemia Hypertension Hypothyroid IBS (irritable bowel syndrome) Non-compliance OBESITY Perforated ulcer Polyneuropathy Type 2 diabetes mellitus uncontrolled Urinary tract infection VITAMIN D DEFICIENCY Historical No qualifying data Procedure/Surgical History Cardiac catheterization: 09/05/21 Stent placement: 01/03/16 Hysterectomy H/O: tubal ligation Colonoscopy EGD - Esophagogastroduodenoscopy Allergies Invokana (Stomach Pains, Diarrhea) Statins Trulicity alogliptin (Hives) aspirin (blood clots) glipiZIDE extended release levothyroxine (Rash, Diarrhea) metFORMIN (Diarrhea) penicillin (Swelling) Medications What How Much When Instructions Last Dose Unchanged carvedilol (carvedilol 3.125 mg oral tablet) 1 tab(s) by mouth Two (2) times a day Contact prescriber if questions or concerns Unchanged insulin aspart-insulin aspart protamine (Novolog Mix 70/ 30) (NovoLOG Mix 70/ 30 FlexPen 3 mL Pen) See instructions inject 24 units subcutaneously twice a day before meals Contact prescriber if questions or concerns Unchanged nitroGLYcerin (nitroglycerin 0.4 mg sublingual tablet) 1 tab(s) under the tongue Every 5 minutes as needed for as needed for chest pain Contact prescriber if questions or concerns Unchanged thyroid desiccated (thyroid desiccated 60 mg oral tablet) 1 tab(s) by mouth Once a day Contact prescriber if questions or concerns [1] Ambulatory Comprehensive Intake - Specialty Office; Jennifer Padilla RN 11/21/2021 13:29 EDT [2] Ambulatory Vitals Height Weight; Leyva Marilu RMA 11/21/2021 13:36 EDT Signature Line Digitally Signed by POLLY PHILIPPE MD on 11/21/2021 02:15 PM [1] (copied from office note/pp) [1] Office Visit Note; POLLY PHILIPPE MD 11/21/2021 14:15 EDT Digitally Signed by CAROLINE Willingham on 11/24/2021 02:06 PM [id number] End[facility] Consult note Date of Service 11/24/21 Reason for Consultation DM Management; Uncontrolled Referring Physician Nat Dunn APRN History of Present Illness This is a 71-year-old female with past medical history of CAD status post PCI in 2016, hypothyroidism, hypertension, hyperlipidemia, irritable bowel syndrome, diabetes, history of DVT, history of tobacco use (quit 6 years ago), history of GI bleeds requiring blood transfusions, and obesity. 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 Jewell in [place] which revealed an EF of 55% with 70% stenosis of the left main and a patent stent in her right coronary artery. Shewas seen and evaluated by Dr. Philippe. On November 23, 2021, she underwent a two-vessel coronary artery bypass grafting using ADAN to LAD with a reverse saphenous vein, aortocoronary graft to the firstobtuse marginal coronary artery. She tolerated the surgery well and was was transferred to cardiovascular ICU in stable condition. Briefly required nitroprusside drip postoperatively for blood pressure control. Endocrinology consulted for diabetic management. Blood sugar trends, labs, chart reviewed. Patient is actually known to Dr. Chirinos's outpatient services Now currently being managed by her PCP. Patient reports she is also seen Dr. Blandon in the past as well for diabetic management. Visitnotes were reviewed from her last exam in 2019. Patient reports she is a longstanding type II diabetic. Continues on mixed insulin, Humulin 70/30 24 units twice daily. She does endorse missed doses occasionally with the same. Reports that she has had a lot going on and as such was not as consistent with glucose monitoring, med administration or diet. She cannot recall if she has had an A1c donerecently. Reviewed A1c here this admission which resulted at 9.7%. She denies any recent significant weight changes. Denies any recent steroid use. When she does check her blood sugars it is typically twice daily. Reports typically her morning trends are well controlled 1 30-1 40 but into the evening trends increase up over 300. She denies any hypoglycemic events. Intake here this morning has been limited due to use of BiPAP. At home was eating well. She does have a family history of diabetes in her father as well as her sister. She denies family history of thyroid disease. She herself has history of hypothyroidism. She was previously on levothyroxine but states this was recently transitioned to thyroid desiccated 60 daily. She reports that she would get an upset stomach with levothyroxine. She quit taking this consistently hence elevated TSH. She reports even the desiccated thyroid shehas not been taking consistently. Of note patient has multiple medication intolerances. Most of these are diabetic agents including metformin, glipizide, Nesina, Tradjenta, Invokana, Trulicity, Xultophy. She also has intolerance to statins and recently added levothyroxine to this list as well. From her report most of the agents give upset stomach. Statin gave her myalgias even with multiple trial of agents. Seen today in the cardiovascular ICU, she endorses fatigue. No headaches or dizziness. Some incisional pain. Reviewed importance of better medication compliance, diabetic and thyroid control. She verbalizes need for the same. Review of Systems Negative for all systems except at mentioned in HPI Physical Exam Vitals and Measurements T: 36.8 C (Oral) TMIN: 36.5 C (Axillary) TMAX: 36.9 C (Oral) HR: 79(Monitored) RR: 18 BP: 131/61(Line) SpO2: 93% WT: 107.5 kg Weight Current Weight Dosing Weight: 102.3 kg (11/23/21) Current Weight: 107.5 kg (11/24/21) Constitutional: Alert and appropriate. No acute distress. HEENT: Normocephalic. Atraumatic. Endo: No goiter. Lungs: Speaks in full sentences w/o difficulty. Respirations are unlabored. Abdomen: Soft, non-distended. Neurological: Speech is clear. No gross motor deficits. Follows simple commands appropriately. Skin: Warm and dry. No diaphoresis, cyanosis or rashes. Psychiatric: Mood and affect are appropriate. Alert & oriented x3. Lab Results 11/24 04:15 WBC: 14.8 H Hgb: 9.6 L Hct: 29.2 L Platelet: 186 Neutrophil %: 84.1 H Glucose Level: 141 H Sodium Level: 137 Potassium Level: 4.2 BUN: 15.0 Creatinine Lvl (s): 0.67 11/24 01:03 Potassium Level: 4.7 11/23 19:48 Potassium Level: 4.2 11/23 13:01 WBC: 22.5 H Hgb: 10.7 L Hct: 32.3 L Platelet: 220 Neutrophil %: 83.9 H Protime: 13.1 PT International Ratio: 1.1 Glucose Level: 152 H Sodium Level: 141 Potassium Level: 4.1 BUN: 14.0 Creatinine Lvl (s): 0.74 11/23 06:11 Platelet: 283 Protime: 10.8 PT International Ratio: 0.9 Group Detail Date Value w/Units Flags Normal Range Normal Reference Text Comment Ind Glucose Testing Blood Glucose, Capillary 11/24/2021 09:39:00 EDT 111 mg/dL 82-115 Glucose Testing Blood Glucose, Capillary 11/24/2021 07:27:00 EDT 100 mg/dL 82-115 Glucose Testing Blood Glucose, Capillary 11/24/2021 06:30:00 EDT 108 mg/dL 82-115 Glucose Testing Blood Glucose, Capillary 11/24/2021 04:30:00 EDT 145 mg/dL HI 82-115 Glucose Testing Glucose Level 11/24/2021 04:15:00 EDT 141 mg/dL HI 82-115 Glucose Testing Blood Glucose, Capillary 11/24/2021 03:33:00 EDT 153 mg/dL HI 82-115 Glucose Testing Blood Glucose, Capillary 11/24/2021 02:38:00 EDT 183 mg/dL HI 82-115 Glucose Testing Blood Glucose, Capillary 11/24/2021 01:05:00 EDT 123 mg/dL HI 82-115 Glucose Testing Blood Glucose, Capillary 11/24/2021 00:33:00 EDT 124 mg/dL HI 82-115 Glucose Testing Blood Glucose, Capillary 11/24/2021 00:00:00 EDT 65 mg/dL LOW 82-115 Glucose Testing Blood Glucose, Capillary 11/23/2021 22:00:00 EDT 112 mg/dL 82-115 Glucose Testing Blood Glucose, Capillary 11/23/2021 20:55:00 EDT 115 mg/dL 82-115 Glucose Testing Blood Glucose, Capillary 11/23/2021 19:10:00 EDT 123 mg/dL HI 82-115 Glucose Testing Blood Glucose, Capillary 11/23/2021 18:05:00 EDT 141 mg/dL HI 82-115 Glucose Testing Blood Glucose, Capillary 11/23/2021 16:01:00 EDT 94 mg/dL 82-115 Glucose Testing Blood Glucose, Capillary 11/23/2021 15:01:00 EDT 87 mg/dL 82-115 Glucose Testing Blood Glucose, Capillary 11/23/2021 14:09:00 EDT 103 mg/dL 82-115 Assessment/Plan 1. CAD IN [place] ART[place] s/p PCI 2015; s/p CABG x2 11/23/21, EF55% 2. Acute blood loss anemia 3. Diabetes mellitus Hgb A1c 9.7% 4. High blood pressure 5. Hyperlipemia 6. Statin intolerance 7. Hypothyroid 8. CKD stage 3 9. IBS (irritable bowel syndrome) 10. History of DVT (deep vein thrombosis) 11. History of tobacco use 12. History of gastrointestinal bleeding 13. Hypercapnia Orders: ADA Clear Liquid Diet This is a 71-year-old female with past medical history of CAD status post PCI in 2016, hypothyroidism, hypertension, hyperlipidemia, irritable bowel syndrome, diabetes, history of DVT, history of tobacco use (quit 6 years ago), history of GI bleeds requiring blood transfusions, and obesity. 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 Jewell in [place] which revealed an EF of 55% with 70% stenosis of the left main and a patent stent in her right coronary artery. Shewas seen and evaluated by Dr. Philippe. On November 23, 2021, she underwent a two-vessel coronary artery bypass grafting using ADAN to LAD with a reverse saphenous vein, aortocoronary graft to the firstobtuse marginal coronary artery. She tolerated the surgery well and was was transferred to cardiovascular ICU in stable condition. Briefly required nitroprusside drip postoperatively for blood pressure control. Endocrinology consulted for diabetic management. 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 Previously established with endocrinology, Dr. Chirinos, now being managed by PCP. On home regimen of 70/30 24 units twice daily.Trial of multiple non-insulin injectables, oral agents which she has not tolerated due to GI complaints. Patient also with hypothyroidism. Elevated TSH noted 9.830. Recently transition to thyroid desiccated 60 daily due to reported intolerance of levothyroxine which she previously had been taking longstanding. Orders for the same have been reintroduced here today. Also with history of hyperlipidemia, statin intolerant. Experiences myalgia. Reportedly has trialedseveral agents. No recent lipid panel, check in the a.m. Discussed with her A1c. Reviewed A1c goals, glycemic targets. Would benefit from research biologist and nurse informatics educator evaluation. Appreciate their input. She is morbidly obese with a BMI of 41. In need of better diet control, weight loss. Further discussions of the same as her clinical course progresses Renal function noted, GFR greater than 60 Currently she is being managed with insulin drip protocol. Glucose was 100 this morning with requirements of 2 units an hour on the drip. Nitroprusside is off. She was on monitor this morning. No steroids given intraoperatively. After careful consideration of clinical status, oral intake, w/ thorough MAR review for vasopressorand steroid use as well as current insulin gtt patterns/needs calculations indicate need to continue insulin gtt for now. She continues to have high insulin requirements. Plan is for reintroduction of sq insulin, possibly MDI. She does have cost concerns with other agents in the past and has not tolerated multiple alternative agents including metformin, SGLT2, DPP 4 and GLP analogs. Continued outpatient follow-up with her PCP for further management. Should have TSH r epeated outpatient in 4 to 6 weeks Discussed plan of care with Dr. Chirinos and she is agreeable. Thank you for this consult, we will continue to follow while inpatient. Problem List/Past Medical History Ongoing Bronchitis CAD IN [place] ART[place] CARDIOGENIC SHOCK CHEST PAIN IN ADULT CKD stage 3 CONGESTIVE HEART FAILURE, UNSPECIFIED CONGESTIVE HEART FAILURE CHRONICITY, UNSPECIFIED CONGESTIVE HEART FAILURE TYPE Coronary artery disease Diabetes mellitus DVT (deep vein thrombosis) in Dysphagia FATIGUE Former tobacco use H/O irritable bowel syndrome Heart attack High blood pressure History of DVT (deep vein thrombosis) History of gastrointestinal bleeding HISTORY OF [place] ELEVATION MYOCARDIAL INFARCTION (STEMI) History of tobacco use Hypercapnia Hyperlipemia Hypertension Hypothyroid IBS (irritable bowel syndrome) Non-compliance OBESITY Perforated ulcer Polyneuropathy Statin intolerance Type 2 diabetes mellitus uncontrolled Urinary tract infection VITAMIN D DEFICIENCY Historical No qualifying data Procedure/Surgical History CABG (Coronary artery bypass grafting) planned: 11/23/21 CABG x 2 - Coronary artery bypass grafts x 2 using ADAN and Right Saphenous Vein Graft: 11/23/21 Cardiac catheterization: 09/05/21 Stent placement: 01/03/16 Hysterectomy H/O: tubal ligation Colonoscopy EGD - Esophagogastroduodenoscopy Medications Inpatient acetaminophen, 650 mg= 2 tab(s), Oral, q4h, PRN budesonide 0.5 mg/2 mL inhalation suspension, 0.5 mg= 2 mL, Inhalation, BIDRT Bumex, 2 mg= 2 tab(s), Oral, BID Coreg, 3.125 mg= 1 tab(s), Oral, BIDM Dulcolax Laxative, 10 mg= 1 supp, Rectal, qDay, PRN DuoNeb, 3 mL, Inhalation, QIDRT enoxaparin, 40 mg= 0.4 mL, Subcutaneous, qDay glucose, 25 gram(s)= 50 mL, IV Push, AsDirected, PRN Insulin Regular for IV 100 unit(s) + NS Premix Diluent 100 mL insulin regular human recombinant 100 units/mL injectable solution, 10 unit(s)= 0.1 mL, IV Push, q1h, PRN KCL, 20 mEq= 1 tab(s), Oral, TIDM Maalox, 30 mL, Oral, q2h, PRN magnesium sulfate, 4 gram(s)= 50 mL, IV Piggyback, AsDirected, PRN Milk of Magnesia, 30 mL, Oral, qDay, PRN Miralax Powder Packet, 17 gram(s)= 15 mL, Oral, qDay, PRN Multiple Vitamins with Iron oral tablet, 1 tab(s), Oral, qDay mupirocin 2% topical ointment, 1 ina, Nostril, each, BID Ofirmev IVPB, 1000 mg= 100 mL, IV Piggyback, q6hr Pharmacy See ORDER COMMENTS, Cefazolin, Miscellaneous, qDay potassium chloride bolus, 20 mEq= 50 mL, IV Piggyback, AsDirected, PRN potassium chloride bolus, 15 mEq= 50 mL, IV Piggyback, AsDirected, PRN potassium chloride bolus, 10 mEq= 50 mL, IV Piggyback, AsDirected, PRN protamine, 50 mg= 5 mL, IV Push, Once, PRN Protonix, 40 mg= 1 tab(s), Oral, qDayAC Sore Throat [place], 1 spray(s), Topical, q1h, PRN Surfak Stool Softener, 240 mg= 1 cap(s), Oral, BID thyroid desiccated, 60 mg= 1 tab(s), Oral, qDay traMADol, 100 mg= 2 tab(s), Oral, q6h, PRN traMADol, 50 mg= 1 tab(s), Oral, q4h, PRN vancomycin IVPB, 1750 mg= 500 mL, 15 mg/kg, IV Piggyback, q12hr Home carvedilol 3.125 mg oral tablet, 3.125 mg= 1 tab(s), Oral, BID nitroglycerin 0.4 mg sublingual tablet, 0.4 mg= 1 tab(s), Sublingual, q5min, PRN, 3 refills NovoLOG Mix 70/30 FlexPen 3 mL Pen, See Instructions thyroid desiccated 60 mg oral tablet, 60 mg= 1 tab(s), Oral, qDay Allergies Invokana (Stomach Pains, Diarrhea) Statins Trulicity alogliptin (Hives) aspirin (blood clots) glipiZIDE extended release levothyroxine (Rash, Diarrhea) metFORMIN (Diarrhea) penicillin (Swelling) Social History Smoking Status - 12/20/2016 Former smoker Alcohol - Denies Alcohol Use, 12/20/2016 Use: Never., 04/14/2019 Employment/School Status: Retired., 10/10/2021 Home/Environment Domestic Concerns: None. Living situation: Home/Independent. Lives In: Apartment. Current Home Treatments Blood Glucose monitoring, Blood Pressure monitoring. Marital Status: Unmarried., 10/10/2021 Nutrition/Health Type of diet: Regular. Appetite Good. Eating Difficulties None., 10/31/2021 Substance Abuse - Denies Substance Abuse, 12/20/2016 Use: Never., 04/14/2019 Tobacco Nicotine Use: Former smoker, quit more than 30 days ago. Type: Cigarettes. Tobacco use per day: 1. Number of years: 35. Total pack years: 35. Stopped at age: 55 Years., 10/31/2021 Nicotine Use: Former smoker, quit more than 30 days ago., 04/14/2019 Family History Aneurysm: Father. COPD - Chronic obstructive pulmonary disease: Sister. Cancer: Sister. Cardiac pacemaker: Brother. Diabetes mellitus: Sister. Heart attack: Mother. Heart attack 14-Sep-2015 02:33:12<$>: Mother and Brother. Heart disease: Brother. Stroke: Father. Immunizations No qualifying data available. Digitally Signed by CRYSTAL PRESSLEY on 11/24/2021 03:52 PM [id number] Pulmonary Consult note Date of Service 11/24/2021 History of Present Illness 71-year-old female with past medical history of CAD status post PCI in 2015, hypothyroidism, hypertension, hyperlipidemia, irritable bowel syndrome, diabetes, history of DVT, history of tobacco use (quit 6 years ago), history of GI bleeds requiring blood transfusions, and obesity. 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 Jewell in [place] which revealed an EF of 55% with 70% stenosis of the left main and a patent stent in her right coronary artery. She was seen and evaluated by Dr. Philippe. On November 23, 2021, she underwent a two-vessel coronary artery bypass grafting using ADAN to LAD with a reverse saphenous vein, aortocoronary graft to the first obtuse marginal coronary artery. She tolerated the surgery well and was was transferred to cardiovascular ICUin stable condition. Briefly required nitroprusside drip postoperatively for blood pressure control. Liberated from mechanical ventilator operative night. Postextubation arterial blood gases revealedelevated CO2 levels in the 50s with pHs 7.2-7.3. Now PAD 3 remains on Bpap 18/8 with 40 % fio2 ABG this morning pH 7.29, CO2 50.9, PO2 86. Review of Systems Negative except for HPI Physical Exam Vitals and Measurements T: 36.5 C (Axillary) TMIN: 35.99 C (Bladder) TMAX: 37.53 C HR: 78(Monitored) RR: 17 BP: 106/42(Line) SpO2: 91% WT: 107.5 kg Weight Current Weight Dosing Weight: 102.3 kg (11/23/21) Current Weight: 107.5 kg (11/24/21) Constitutional: Alert, oriented, appropriate HEENT: Normocephalic, atraumatic Lungs: Decreased air entry bilaterally at the bases with diffuse wheezing Heart: Normal sinus rhythm, S1-S2, no murmur, no rub; bilateral mediastinal chest tubes to -20 cm suction without evidence of air leak draining serosanguineous drainage : Indwelling Lag[place] catheter in place draining clear yellow urine (output 1130 cc over last 24 hours and 285 cc over last 8 hours) Extremities: Well perfused, pedal pulses +1 bilaterally, no lower leg edema, Left subclavian triple-lumen; right brachial arterial line Integumentary: Midline sternal incision dressing intact with Aquacel dressing; right lower leg surgical incisions dressed and intact Lab Results 11/24 04:15 WBC: 14.8 H Hgb: 9.6 L Hct: 29.2 L Platelet: 186 Neutrophil %: 84.1 H Glucose Level: 141 H Sodium Level: 137 Potassium Level: 4.2 BUN: 15.0 Creatinine Lvl (s): 0.67 11/24 01:03 Potassium Level: 4.7 11/23 19:48 Potassium Level: 4.2 11/23 13:01 WBC: 22.5 H Hgb: 10.7 L Hct: 32.3 L Platelet: 220 Neutrophil %: 83.9 H Protime: 13.1 PT International Ratio: 1.1 Glucose Level: 152 H Sodium Level: 141 Potassium Level: 4.1 BUN: 14.0 Creatinine Lvl (s): 0.74 11/23 06:11 Platelet: 283 Protime: 10.8 PT International Ratio: 0.9 Imaging Results and Diagnostics XR Chest 1 View Result Date: November 23, 2021 Verified By: [email or web address] CLINICAL STATEMENT: IMPRESSION: 1. Lines and tubes as described above.2. Interval sternotomy with interstitial opacities, likely on the basis ofedema, with left basilar consolidation. Assessment/Plan 1. CAD IN [place] s/p PCI 2015; s/p CABG x2 11/23/21, EF55% 2. Acute blood loss anemia 3. Diabetes mellitus Hgb A1c 9.7% 4. High blood pressure 5. Hyperlipemia 6. Statin intolerance 7. Hypothyroid 8. CKD stage 3 9. IBS (irritable bowel syndrome) 10. History of DVT (deep vein thrombosis) 11. History of tobacco use 12. History of gastrointestinal bleeding 13. Hypercapnia Plan: 1. The patient's respiratory status is consistent with bronchospasm. Possible history of COPD. I will add budesonide twice a day. Next DuoNebs every 4 hours. 2. Change BiPAP settings with decreasing the FiO2 increase the EPAP 3. Repeat ABG 2 hours after being on BiPAP 4. Okay to take off BiPAP for meals and target and ox saturation of around 92% in an attempt to avoid further CO2 retention if her oxygen targets are high. Thank you for the consult Problem List/Past Medical History Ongoing Bronchitis CAD IN [place] ART[place] CARDIOGENIC SHOCK CHEST PAIN IN ADULT CKD stage 3 CONGESTIVE HEART FAILURE, UNSPECIFIED CONGESTIVE HEART FAILURE CHRONICITY, UNSPECIFIED CONGESTIVE HEART FAILURE TYPE Coronary artery disease Diabetes mellitus DVT (deep vein thrombosis) in Dysphagia FATIGUE Former tobacco use H/O irritable bowel syndrome Heart attack High blood pressure History of DVT (deep vein thrombosis) History of gastrointestinal bleeding HISTORY OF [facility] ELEVATION MYOCARDIAL INFARCTION (STEMI) History of tobacco use Hypercapnia Hyperlipemia Hypertension Hypothyroid IBS (irritable bowel syndrome) Non-compliance OBESITY Perforated ulcer Polyneuropathy Statin intolerance Type 2 diabetes mellitus uncontrolled Urinary tract infection VITAMIN D DEFICIENCY Historical No qualifying data Procedure/Surgical History CABG (Coronary artery bypass grafting) planned: 11/23/21 CABG x 2 - Coronary artery bypass grafts x 2 using ADAN and Right Saphenous Vein Graft: 11/23/21 Cardiac catheterization: 09/05/21 Stent placement: 01/03/16 Hysterectomy H/O: tubal ligation Colonoscopy EGD - Esophagogastroduodenoscopy Medications Inpatient acetaminophen, 650 mg= 2 tab(s), Oral, q4h, PRN Bumex, 2 mg= 2 tab(s), Oral, BID Coreg, 3.125 mg= 1 tab(s), Oral, BIDM Dulcolax Laxative, 10 mg= 1 supp, Rectal, qDay, PRN enoxaparin, 40 mg= 0.4 mL, Subcutaneous, qDay glucose, 25 gram(s)= 50 mL, IV Push, AsDirected, PRN Insulin Regular for IV 100 unit(s) + NS Premix Diluent 100 mL insulin regular human recombinant 100 units/mL injectable solution, 10 unit(s)= 0.1 mL, IV Push, q1h, PRN KCL, 20 mEq= 1 tab(s), Oral, TIDM Maalox, 30 mL, Oral, q2h, PRN magnesium sulfate, 4 gram(s)= 50 mL, IV Piggyback, AsDirected, PRN Milk of Magnesia, 30 mL, Oral, qDay, PRN Miralax Powder Packet, 17 gram(s)= 15 mL, Oral, qDay, PRN Multiple Vitamins with Iron oral tablet, 1 tab(s), Oral, qDay mupirocin 2% topical ointment, 1 ina, Nostril, each, BID Ofirmev IVPB, 1000 mg= 100 mL, IV Piggyback, q6hr Pharmacy See ORDER COMMENTS, Cefazolin, Miscellaneous, qDay potassium chloride bolus, 20 mEq= 50 mL, IV Piggyback, AsDirected, PRN potassium chloride bolus, 15 mEq= 50 mL, IV Piggyback, AsDirected, PRN potassium chloride bolus, 10 mEq= 50 mL, IV Piggyback, AsDirected, PRN protamine, 50 mg= 5 mL, IV Push, Once, PRN Protonix, 40 mg= 1 tab(s), Oral, qDayAC Sore Throat [place], 1 spray(s), Topical, q1h, PRN Surfak Stool Softener, 240 mg= 1 cap(s), Oral, BID thyroid desiccated, 60 mg= 1 tab(s), Oral, qDay traMADol, 100 mg= 2 tab(s), Oral, q6h, PRN traMADol, 50 mg= 1 tab(s), Oral, q4h, PRN vancomycin IVPB, 1750 mg= 500 mL, 15 mg/kg, IV Piggyback, q12hr Home carvedilol 3.125 mg oral tablet, 3.125 mg= 1 tab(s), Oral, BID nitroglycerin 0.4 mg sublingual tablet, 0.4 mg= 1 tab(s), Sublingual, q5min, PRN, 3 refills NovoLOG Mix 70/30 FlexPen 3 mL Pen, See Instructions thyroid desiccated 60 mg oral tablet, 60 mg= 1 tab(s), Oral, qDay Allergies Invokana (Stomach Pains, Diarrhea) Statins Trulicity alogliptin (Hives) aspirin (blood clots) glipiZIDE extended release levothyroxine (Rash, Diarrhea) metFORMIN (Diarrhea) penicillin (Swelling) Social History Smoking Status - 12/20/2016 Former smoker Alcohol - Denies Alcohol Use, 12/20/2016 Use: Never., 04/14/2019 Employment/School Status: Retired., 10/10/2021 Home/Environment Domestic Concerns: None. Living situation: Home/Independent. Lives In: Apartment. Current Home Treatments Blood Glucose monitoring, Blood Pressure monitoring. Marital Status: Unmarried., 10/10/2021 Nutrition/Health Type of diet: Regular. Appetite Good. Eating Difficulties None., 10/31/2021 Substance Abuse - Denies Substance Abuse, 12/20/2016 Use: Never., 04/14/2019 Tobacco Nicotine Use: Former smoker, quit more than 30 days ago. Type: Cigarettes. Tobacco use per day: 1. Number of years: 35. Total pack years: 35. Stopped at age: 55 Years., 10/31/2021 Nicotine Use: Former smoker, quit more than 30 days ago., 04/14/2019 Family History Aneurysm: Father. COPD - Chronic obstructive pulmonary disease: Sister. Cancer: Sister. Cardiac pacemaker: Brother. Diabetes mellitus: Sister. Heart attack: Mother. Heart attack 14-Sep-2015 02:33:12<$>: Mother and Brother. Heart disease: Brother. Stroke: Father. Immunizations No qualifying data available. Digitally Signed by CHRIS FRY MD on 11/24/2021 11:15 AM [id number] Note Date of Service 11/24/2021 Chief Complaint POD #1 This is a 71-year-old female with past medical history of CAD status post PCI in 2016, hypothyroidism, hypertension, hyperlipidemia, irritable bowel syndrome, diabetes, history of DVT, history of tobacco use (quit 6 years ago), history of GI bleeds requiring blood transfusions, and obesity. 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 Jewell in [place] which revealed an EF of 55% with 70% stenosis of the left main and a patent stent in her right coronary artery. Shewas seen and evaluated by Dr. Philippe. On November 23, 2021, she underwent a two-vessel coronary artery bypass grafting using ADAN to LAD with a reverse saphenous vein, aortocoronary graft to the firstobtuse marginal coronary artery. She tolerated the surgery well and was was transferred to cardiovascular ICU in stable condition. Briefly required nitroprusside drip postoperatively for blood pressure control. Liberated from mechanical ventilator operative night. Postextubation arterial blood gases revealed elevated CO2 levels in the 50s with pHs 7.2-7.3. Placed on BiPAP. POD #1: Remains on BiPAP. ABG this morning pH 7.29, CO2 50.9, PO2 86. Consult to pulmonary. nitroprusside drip has been weaned off. [place] [facility] consulted for diabetic management. Currently on 2 units insulin drip per hour. Patient states that she lives at home alone. PT/OT consulted. Start carvedilol 3.125 mg twice daily, Bumex 2 mg twice daily, and potassium 3 times daily. Keep in ICU today. Subjective Patient resting in bed comfortably. Reports mild midsternal incisional chest discomfort. Denies anyshortness of breath. Objective Vitals and Measurements T: 36.5 C (Oral) TMIN: 34.49 C TMAX: 37.53 C HR: 80(Monitored) RR: 25 BP: 126/62(Line) SpO2: 98% Intake and Output 7AM Yesterday to 7AM Today Intake and Output (Last 24 hours) Intake Autotransfusion Amt 450.00 CPB (Anes) 2250.00 Other Intake 348.00 Administration Information 1966.22 Output Chest Tube Output: 506.00 Urinary Catheter Output: 1130.00 Intra-Op EBL 400.00 Intra-Op Urine Catheter 900.00 Stool Count 0.00 Emesis Count 0.00 Total Summary Total Intake 5014.22 Total Output 2936.00 Fluid Balance 2078.22 Physical Exam Constitutional: Alert, oriented, appropriate HEENT: Normocephalic, atraumatic Lungs: Unlabored respirations, lung sounds diminished bilaterally, SPO2 95 to 98% on BiPAP 18/8 and40% FiO2. Heart: Normal sinus rhythm, S1-S2, no murmur, no rub, heart rate ranging 76-83, temporary a and V pacer wires intact, backup pacer set at rate 40, MA of 10; bilateral mediastinal chest tubes to -20 cm suction without evidence of air leak draining serosanguineous drainage (output 430 cc over last 24hours and 110 cc over last 8 hours), left pleural chest tube to -20 cm suction without evidence of air leak draining serosanguineous drainage (output 76 cc over last 24 hours and 47 cc over the last 8 hours) : Indwelling [place] catheter in place draining clear yellow urine (output 1130 cc over last 24 hours and 285 cc over last 8 hours) Extremities: Well perfused, pedal pulses +1 bilaterally, no lower leg edema Integumentary: Midline sternal incision dressing intact with Aquacel dressing; right lower leg surgical incisions dressed and intact Central venous access: Left subclavian triple-lumen; right brachial arterial line Disposition: Plan pending Weight Dosing Weight: 102.3 kg (11/23/21) Medications Medications (30) Active Scheduled: (6) acetaminophen PMX 1,000 mg 100 mL, IV Piggyback, q6hr Misc communication order Cefazolin, Miscellaneous, qDay mupirocin 2% Ointment 22 Gram(s) tube 1 ina, Nostril, each, q12h pantoprazole 40 mg VIAL 40 mg, IV Push, qDayAC thyroid desiccated 60 mg tablet 60 mg 1 tab(s), Oral, qDay vancomycin PMX 1,750 mg 500 mL, IV Piggyback, q12hr Continuous: (8) Dextrose 5% with 0.45% NACL 1,000 mL 1,000 mL, Intravenous, 20 mL/hr epinephrine 4 mg [2 mcg/min] + Sodium Chloride 0.9% 250 mL 250 mL, Intravenous, 7.5 mL/hr insulin regular 100 unit(s) + NS Premix Diluent 100 mL 100 mL, Intravenous lidocaine 2 g/250 mL 2 gram(s) [2 mg/min] + Dextrose 5% Premix Diluent 250 mL 250 mL, Intravenous, 15 mL/hr nitroprusside 50 mg [0.2 mcg/kg/min] + NS Premix Diluent 100 mL 100 mL, Intravenous, 2.46 mL/hr norepinephrine 8 mg [2 mcg/min] + NS Premix Diluent 250 mL 250 mL, Intravenous, 3.75 mL/hr NS (0.9% nacl) 1,000 mL 1,000 mL, Intravenous, 20 mL/hr NS (0.9% nacl) 500 mL 500 mL, Intravenous, 20 mL/hr PRN: (16) acetaminophen 325 mg Tablet 650 mg 2 tab(s), Oral, q4h albumin human 5% 250 mL bottle 12.5 gram(s) 250 mL, IV Piggyback (MED), AsDirected dextrose 50% Solution Disp syringe 50 mL 25 g 50 mL, IV Push, AsDirected insulin regular human recombinant 100 units/mL (3 mL) Soln 10 unit(s) 0.1 mL, IV Push, q1h magnesium sulfate 4g/50mL PMX 4 g 50 mL, IV Piggyback, AsDirected morphine 2 mg/mL 1 mL syringe 2 mg 1 mL, IV Push, q3h morphine 4 mg/mL 1mL INJ 5 mg 1.25 mL, IV Push, q3h nitroglycerin 100 mcg/1 mL 10 mL VIAL 100 mcg 1 mL, IV Push, AsDirected ondansetron 2 mg/ 1 mL 2 mL INJ 4 mg 2 mL, IV Push, q4h potassium chloride (PMX) 20 mEq 50 mL, IV Piggyback, AsDirected potassium chloride (PMX) 15 mEq 50 mL, IV Piggyback, AsDirected potassium chloride (PMX) 10 mEq 50 mL, IV Piggyback, AsDirected protamine 10 mg/mL (50 mg/5 mL) vial 50 mg 5 mL, IV Push, Once sodium phosphate 30 mmol 10 mL, IV Piggyback, AsDirected tramadol 50 mg Tablet 100 mg 2 tab(s), Oral, q6h tramadol 50 mg Tablet 50 mg 1 tab(s), Oral, q4h Lab Results 11/24 04:15 WBC: 14.8 H Hgb: 9.6 L Hct: 29.2 L Platelet: 186 Neutrophil %: 84.1 H Glucose Level: 141 H Sodium Level: 137 Potassium Level: 4.2 BUN: 15.0 Creatinine Lvl (s): 0.67 11/24 01:03 Potassium Level: 4.7 11/23 19:48 Potassium Level: 4.2 11/23 13:01 WBC: 22.5 H Hgb: 10.7 L Hct: 32.3 L Platelet: 220 Neutrophil %: 83.9 H Protime: 13.1 PT International Ratio: 1.1 Glucose Level: 152 H Sodium Level: 141 Potassium Level: 4.1 BUN: 14.0 Creatinine Lvl (s): 0.74 11/23 06:11 Platelet: 283 Protime: 10.8 PT International Ratio: 0.9 Imaging Results and Diagnostics XR Chest 1 View Result Date: November 23, 2021 Verified By: [email or web address] CLINICAL STATEMENT: IMPRESSION: 1. Lines and tubes as described above.2. Interval sternotomy with interstitial opacities, likely on the basis of edema, with left basilar consolidation. EKG No qualifying data available. Assessment/Plan 1. CAD IN [place] ART[place] s/p PCI 2016; s/p CABG x2 11/23/21, EF55% Normal sinus rhythm. Heart rate ranging 76-83. Blood pressures ranging 107/55- 131/61. No aspirin secondary to allergy (patient reports that it causes bleeding which has previously required blood transfusion), no statins secondary to allergy. Start carvedilol 3.125 mg twice daily, Bumex 2 mg twice daily, KCl 20 mill equivalents 3 times daily. 2. Acute blood loss anemia H&H 9.6 and 29.2. 3. Diabetes mellitus Hgb A1c 9.7% Glucoses ranging 65-183. Currently on ICU insulin protocol with insulin drip at 2 units/h. Will consult [place] [place] inpatient [facility]. 4. High blood pressure Blood pressures ranging 107/55-131/61. Patient was previously on carvedilol at home. We will start carvedilol 3.125 mg twice daily 5. Hyperlipemia No statin secondary to allergy. Patient states that she has tried several statins in the past whichhas caused severe myalgia. 6. Statin intolerance Patient reports statins have caused severe myalgia 7. Hypothyroid On home thyroid desiccated 8. CKD stage 3 BUN and creatinine 15 and 0.67. Urine output over last 24 hours 1130 cc and 285 cc over the last 8 hours. No Toradol 9. IBS (irritable bowel syndrome) On no home medication 10. History of DVT (deep vein thrombosis) 11. History of tobacco use Patient reports that she quit smoking 6 years ago. 12. History of gastrointestinal bleeding Patient reports that she is developed gastrointestinal bleeding after taking aspirin and has required blood transfusions in the past. 13. Hypercapnia ABG this morning showing pH of 7.299, CO2 50.9, PO2 86.6. On BiPAP 18 over 8 to 40% FiO2. Consult pulmonary Plan: Consult [facility] [place] inpatient [facility] for diabetic management Consult PT and OT for evaluation. Consult pulmonary Start carvedilol 3.125 mg twice daily Start Bumex 2 mg twice daily and KCl 20 mill equivalents 3 times daily Encourage pulmonary toileting as able CBC, BMP, and chest x-ray in a.m. Keep in ICU Patient seen and discussed with Dr. Philippe. This note was generated using a voice recognition system. As a result, errors are possible and common, including incorrect words, spellings, grammar, gender, phrases, and punctuation that may be out of context or that were missed in checking this note before saving. Reasonable effort is made to correct such errors, but with demands of normal work flow, many are missed. Digitally Signed by NAT DUNN on 11/24/2021 08:20 AM [id number] Note ORIGINAL EXAMINATION: ONE XRAY VIEW OF THE CHEST11/24/2021 9:56 pm COMPARISON: Chest x-ray November 23, 2021 HISTORY: ORDERING SYSTEM PROVIDED HISTORY: Reason for Exam: abnormal breath sounds FINDINGS: Median sternotomy wires with midline surgical padmini. Left chest tube again seen. Mediastinal drain difficult to see given multiple overlying wires. Interval removal of endotracheal and enteric tube. Left subclavian central venous catheter thought to be terminating within the mid to distal SVC. The cardiomediastinal silhouette is mildly enlarged and more pronounced on this exam likely secondary to change in position and poor inspiratory effort. Low lung volumes. Prominent interstitial opacities as well as patchy bibasilar airspace opacities. No pneumothorax or significant pleural effusion. No acute osseous abnormality. IMPRESSION: Mild cardiomegaly, which appears more exaggerated on this exam likely secondary to poor inspiratory effort. Prominent interstitial markings bilaterally with patchy bibasilar airspace opacities favoring congestion/edema with developing infectious or inflammatory process not excluded. I have personally reviewed the images of this examination and agree with the resident's finding and interpretation. Interpreted by: Bear Salcedo MD Preliminary Report By: Akua Bejarano Electronically signed By Bear Salcedo MD Dictated Date: 11/24/2021 10:02:41 PM Prelim Date: 11/24/2021 10:09:45 PM Sign Date: 11/24/2021 10:21:41 PM Ordering Provider: [facility] [place]09-08-2022 Note ORIGINAL EXAMINATION: ONE XRAY VIEW OF THE CHEST11/23/2021 1:29 pm COMPARISON: October 31, 2021 chest radiograph HISTORY: ORDERING SYSTEM PROVIDED HISTORY: Reason for Exam: chst tubes FINDINGS: Endotracheal tube terminates 4.4 cm above the fredy. An enteric tube courses centrally with the distal tip beyond the field of view in the side port under the left hemidiaphragm. There has been interval sternotomy, with overlying surgical clips, median sternotomy wires, mediastinal drain and left chest tube. Left subclavian line terminates at the distal SVC. The cardiac silhouette is mildly enlarged, partly relating to portable technique. There is mild basilar airspace disease with bilateral streaky interstitial opacities. No large pleural effusion. No pneumothorax. IMPRESSION: 1. Lines and tubes as described above. 2. Interval sternotomy with interstitial opacities, likely on the basis of edema, with left basilar consolidation. Interpreted by: Polly Ram DO Preliminary Report By: Polly Ram DO Electronically signed By Polly Ram DO Dictated Date: 11/23/2021 1:38:02 PM Prelim Date: 11/23/2021 1:40:56 PM Sign Date: 11/23/2021 1:40:56 PM Ordering Provider: [facility]09-08-2022 Note ORIGINAL EXAMINATION: ONE XRAY VIEW OF THE CHEST11/23/2021 1:29 pm COMPARISON: October 31, 2021 chest radiograph HISTORY: ORDERING SYSTEM PROVIDED HISTORY: Reason for Exam: chst tubes FINDINGS: Endotracheal tube terminates 4.4 cm above the fredy. An enteric tube courses centrally with the distal tip beyond the field of view in the side port under the left hemidiaphragm. There has been interval sternotomy, with overlying surgical clips, median sternotomy wires, mediastinal drain and left chest tube. Left subclavian line terminates at the distal SVC. The cardiac silhouette is mildly enlarged, partly relating to portable technique. There is mild basilar airspace disease with bilateral streaky interstitial opacities. No large pleural effusion. No pneumothorax. IMPRESSION: 1. Lines and tubes as described above. 2. Interval sternotomy with interstitial opacities, likely on the basis of edema, with left basilar consolidation. Interpreted by: Polly Ram DO Preliminary Report By: Polly Ram DO Electronically signed By Polly Ram DO Dictated Date: 11/23/2021 1:38:02 PM Prelim Date: 11/23/2021 1:40:56 PM Sign Date: 11/23/2021 1:40:56 PM Ordering Provider: [facility] [place]09-08-2022 Anesthesiology Consult note Patient: FELICITAS ALCANTARA Age: 71 years Sex: Female : 1950 Associated Diagnoses: None Author: JOHNATHON TANNER DO Preoperative Information Greater than 6 hours Anesthesia history Patient's history: negative. Family's history: negative. Review of Systems Ear/Nose/Mouth/Throat: Negative except as documented in history of present illness. Respiratory: Negative except as documented in history of present illness. Cardiovascular: Negative except as documented in history of present illness. Gastrointestinal: Negative except as documented in history of present illness. Genitourinary: Negative except as documented in history of present illness. Endocrine: Negative except as documented in history of present illness. Musculoskeletal: Negative except as documented in history of present illness. Integumentary: Negative except as documented in history of present illness. Neurologic: Negative except as documented in history of present illness. Health Status Allergies: Allergic Reactions (Selected) Severity Not Documented Alogliptin- Hives. Aspirin- Blood clots. GlipiZIDE extended release- No reactions were documented. Invokana- Stomach pains and diarrhea. Levothyroxine- Rash and diarrhea. MetFORMIN- Diarrhea. Penicillin- Swelling. Statins- No reactions were documented. Trulicity- No reactions were documented., Allergies (9) ActiveReaction alogliptinHives aspirinblood clots glipiZIDE extended releaseNone Documented InvokanaDiarrhea levothyroxineDiarrhea metFORMINDiarrhea penicillinSwelling StatinsNone Documented TrulicityNone Documented Current medications: (Selected) Inpatient Medications Ordered Adrenalin 4 mg + Normal Saline 250 mL: Start: 11/23/21 6:00:00 EDT, 18 hour(s), Stop date 11/23/21 23:59:00 EDT, Infuse as directed for CVOR Cardioplegic [place]: Start: 11/23/21 6:00:00 EDT, Stop date 11/23/21 6:00:00 EDT, Rate: 0 mL/hr Heparin 10,000 units/mL: Start: 11/23/21 6:00:00 EDT, Dose = 10,000 unit(s), = 1 mL, Miscellaneous,PREOP pharm, 12 hour(s), Stop: 11/23/21 17:59:00 EDT, mL/hr, Infuse over: 0 minute(s), 0 Heparin 10,000 units/mL: Start: 11/23/21 6:00:00 EDT, Dose = 5,000 unit(s), = 0.5 mL, Miscellaneous, PREOP pharm, 12 hour(s), Stop: 11/23/21 17:59:00 EDT, mL/hr, Infuse over: 0 minute(s), 0 NS 500 mL 500 mL: Start: 11/23/21 5:00:00 EDT, 6 hour(s), Stop date 11/23/21 10:59:00 EDT, Rate: 20mL/hr, 11/23/21 5:00:00 EDT Nebcin: Start: 11/23/21 6:00:00 EDT, Dose = 80 mg, = 2 mL, Topical (INT), prep pharm, 12 hour(s), Stop: 11/23/21 17:59:00 EDT, mL/hr, Infuse over: 0 hour(s), 0 Nebcin: Start: 11/23/21 6:00:00 EDT, Dose = 80 mg, = 2 mL, Topical (INT), prep pharm, 12 hour(s), Stop: 11/23/21 17:59:00 EDT, mL/hr, Infuse over: 0 hour(s), 0 carvedilol 3.125 mg oral tablet: Start: 11/23/21 5:00:00 EDT, Dose = 3.125 mg, = 0.5 tab(s), Oral, PREOP pharm, 13 hour(s), Stop: 11/23/21 17:59:00 EDT, 0, 11/23/21 5:00:00 EDT gentamicin: Start: 11/23/21 5:00:00 EDT, Dose = 520 mg, = 13 mL, IV Piggyback, PREOP pharm, 13 hour(s), Stop: 11/23/21 17:59:00 EDT, Rate: 126 mL/hr, Infuse over: 30 minute(s), Give in conjunction pre-op/on-call to the OR for the high- risk patient population., 0,... insulin regular 100 unit(s) + Normal Saline 100 mL: Start: 11/23/21 6:00:00 EDT, 18 hour(s), Stop date 11/23/21 23:59:00 EDT, Infuse as directed for CVOR norepinephrine 8 mg + Normal Saline 250 mL: Start: 11/23/21 6:00:00 EDT, 18 hour(s), Stop date 11/23/21 23:59:00 EDT, Infuse as directed for CVOR tranexamic acid 1 gram(s): 11/23/21 6:00:00 EDT, PMX bag, IV Piggyback, 18 hour(s), Physician Stop,Stop date 11/23/21 23:59:00 EDT tranexamic acid 1 gram(s): 11/23/21 6:00:00 EDT, PMX bag, IV Piggyback, 18 hour(s), Physician Stop,Stop date 11/23/21 23:59:00 EDT tranexamic acid 1 gram(s): 11/23/21 6:00:00 EDT, PMX bag, IV Piggyback, 18 hour(s), Physician Stop,Stop date 11/23/21 23:59:00 EDT vancomycin IVPB: Start: 11/23/21 5:00:00 EDT, Dose = 1,750 mg, = 500 mL, IV Piggyback, PREOP pharm,13 hour(s), Stop: 11/23/21 17:59:00 EDT, Rate: 285.71 mL/hr, Infuse over: 105 minute(s), 0, 11/23/21 5:00:00 EDT Prescriptions Prescribed NovoLOG Mix 70/30 FlexPen 3 mL Pen: See Instructions, inject 24 units subcutaneously twice a day before meals, # 15 mL, 3 Refill(s), Pharmacy: [facility] [address], 157.2, cm, 01/21/20 14:13:00EST, Height, kg, 01/21/20 14:13:00 EST, Dosing Weight nitroglycerin 0.4 mg sublingual tablet: 0.4 mg Dose = 1 tab(s), Sublingual, q5min, PRN as needed for chest pain, # 25 tab(s), 3 Refill(s), Pharmacy: [facility] [address], 157.5, cm, 08/31/19 16:27:00 EDT, Height, kg, 08/31/19 16:27:00 EDT, Dosing Weight Documented Medications Documented carvedilol 3.125 mg oral tablet: Dose : 3.125 mg = 1 tab(s), Oral, BID, 0 Refill(s) thyroid desiccated 60 mg oral tablet: Dose : 60 mg = 1 tab(s), Oral, qDay, Medications (15) Active Scheduled: (8) cardioplegic del Nido formula 1,052.8 mL, Miscellaneous, Once carvedilol 6.25 mg tablet 3.125 mg 0.5 tab(s), Oral, PREOP pharm gentamicin 520 mg 13 mL, IV Piggyback, PREOP pharm heparin 10,000 unit(s) 1 mL, Miscellaneous, PREOP pharm heparin 5,000 unit(s) 0.5 mL, Miscellaneous, PREOP pharm tobramycin 80 mg 2 mL, Topical (INT), prep pharm tobramycin 80 mg 2 mL, Topical (INT), prep pharm vancomycin PMX 1,750 mg 500 mL, IV Piggyback, PREOP pharm Continuous: (7) epinephrine 4 mg + Sodium Chloride 0.9% 250 mL 250 mL, Intravenous insulin regular 100 unit(s) + Sodium Chloride 0.9% 100 mL 100 mL, Intravenous norepinephrine 8 mg + Sodium Chloride 0.9% 250 mL 250 mL, Intravenous NS (0.9% nacl) 500 mL 500 mL, Intravenous, 20 mL/hr tranexamic acid PMX 1 gram(s) , IV Piggyback tranexamic acid PMX 1 gram(s) , IV Piggyback tranexamic acid PMX 1 gram(s) , IV Piggyback PRN: (0) Problem list: Medical DVT (deep vein thrombosis) in / SNOMED CT 86152484 / Confirmed Bronchitis / SNOMED CT 47785245 / Confirmed CARDIOGENIC SHOCK / SNOMED CT 887507443 / Confirmed CHEST PAIN IN ADULT / SNOMED CT 65725497 / Confirmed CKD stage 3 / SNOMED CT 0206614615 / Confirmed CONGESTIVE HEART FAILURE, UNSPECIFIED CONGESTIVE HEART FAILURE CHRONICITY, UNSPECIFIED CONGESTIVE HEART FAILURE TYPE / SNOMED CT 70122057 / Confirmed Coronary artery disease / SNOMED CT 7050598199 / Confirmed CAD IN COLD [place]INGS ARTERY / SNOMED CT 8579123881 / Confirmed Diabetes mellitus / SNOMED CT 324181260 / Confirmed Dysphagia / SNOMED CT 45470400 / Confirmed FATIGUE / SNOMED CT 143733633 / Confirmed Heart attack / SNOMED CT 98831217 / Confirmed High blood pressure / SNOMED CT 06111194 / Confirmed HISTORY OF ST ELEVATION MYOCARDIAL INFARCTION (STEMI) / SNOMED CT 4383273302 / Confirmed H/O irritable bowel syndrome / SNOMED CT 7216571517 / Confirmed Former tobacco use / SNOMED CT 7896589620 / Confirmed Hyperlipemia / SNOMED CT 96660584 / Confirmed Hypertension / SNOMED CT 41361303 / Confirmed Hypothyroid / SNOMED CT 362910638 / Confirmed IBS (irritable bowel syndrome) / SNOMED CT 80624915 / Confirmed Non-compliance / SNOMED CT 5578184217 / Confirmed OBESITY / SNOMED CT 6927253759 / Confirmed Perforated ulcer / SNOMED CT 559692173 / Confirmed Polyneuropathy / SNOMED CT 01949220 / Confirmed Type 2 diabetes mellitus uncontrolled / SNOMED CT 5960635148 / Confirmed Urinary tract infection / SNOMED CT 125687524 / Confirmed VITAMIN D DEFICIENCY / SNOMED CT 30315048 / Confirmed, Active Problems (33) Bronchitis CAD IN COLD [place] ARTERY CARDIOGENIC SHOCK CHEST PAIN IN ADULT CKD stage 3 CONGESTIVE HEART FAILURE, UNSPECIFIED CONGESTIVE HEART FAILURE CHRONICITY, UNSPECIFIED CONGESTIVE HE Coronary artery disease COVID-19 Diabetes mellitus Diverticulitis DVT (deep vein thrombosis) in DVT (deep venous thrombosis) Dysphagia Dyspnea on exertion FATIGUE Former tobacco use H/O irritable bowel syndrome Heart attack High blood pressure HISTORY OF ST ELEVATION MYOCARDIAL INFARCTION (STEMI) Hyperlipemia Hypertension Hypothyroid IBS (irritable bowel syndrome) No natural teeth Non-compliance OBESITY Perforated ulcer Polyneuropathy Tobacco use, continuous Type 2 diabetes mellitus uncontrolled Urinary tract infection VITAMIN D DEFICIENCY Histories Past Medical History: Active Perforated ulcer (254342604) DVT (deep vein thrombosis) in (59626982) High blood pressure (67245003) Bronchitis (13087557) Diabetes mellitus (767491561) Urinary tract infection (094355936) Coronary artery disease (7509395599) Former tobacco use (7200775320) Comments: 04/09/2016 EST 19:51 Summer Reddy RN quit 12/2015 Family History: Cardiac pacemaker Brother COPD - Chronic obstructive pulmonary disease Sister Diabetes mellitus Sister Heart disease Brother Stroke Father ([place]) Heart attack Mother ([place]) Cancer Sister Aneurysm Father ([place]) Heart attack 14-Sep-2015 02:33:12<$> Mother ([place]) Brother Procedure history: CABG (Coronary artery bypass grafting) planned ([id number]) on 11/23/2021 at 71 Years. Cardiac catheterization (22279764) on 09/05/2021 at 70 Years. Cardiac catheterisation (957397360) on 04/10/2016 at 65 Years. Comments: 04/10/2016 5:58 LARS Rodriguez D possible PTCA Stent placement (322170468) on 01/03/2016 at 65 Years. History of hysterectomy ([id number]). Hysterectomy (517218821). H/O: tubal ligation (984626134). Histology tonsillectomy (534929404). Colonoscopy (540179045). EGD - Esophagogastroduodenoscopy (6856579992). Social History Social & Psychosocial Habits Alcohol 12/20/2016Risk Assessment: Denies Alcohol Use 04/14/2019 Use: Never Employment/School 10/10/2021 Status: Retired Substance Abuse 12/20/2016Risk Assessment: Denies Substance Abuse 04/14/2019 Use: Never Tobacco 04/14/2019 Tobacco Use: Former smoker, quit more 10/31/2021 Tobacco Use: Former smoker, quit more Type: Cigarettes Tobacco use per day: 1 Number of years: 35 Total pack years: 35 Stopped at age: 55 Years Comment: Quit in 2015 - 10/10/2021 14:44 - Raiza Boss RN Home/Environment 10/10/2021 Domestic Concerns None Living situation: Home/Independent Lives In Apartment Current Home Treatments Blood Glucose monitoring, Blood Pressure monitoring Marital Status of Patient if Patient Independent Adult: Unmarried Nutrition/Health 10/31/2021 Type of diet: Regular Appetite Good Eating Difficulties None . Physical Examination General: Alert and oriented. Airway: Normal temporomandibular joint mobility, Normal mouth, Normal throat, Normal neck range of motion, Trachea midline. Mallampati classification: II (soft palate, fauces, uvula visible). Head: Normocephalic. Dentition Evaluation: Dentures, lower, Dentures, upper. Neck: Supple. Respiratory: Lungs are clear to auscultation, Respirations are non-labored. Cardiovascular: Normal rate, Regular rhythm, No murmur. Heart Sounds: Normal. Gastrointestinal: Soft. Musculoskeletal Normal range of motion. Integumentary: Intact, Warm, Dry. Neurologic: Alert, Oriented. Review / Management Results review: Lab results 11/23/2021 5:54 EDT Designated Person #1 We May Share PHI Christine Designated Person #1 Relationship Daughter Designated Person #2 We May Share PHI Katherine [phone] Designated Person #2 Relationship Other: sister Additional Designated Person Share PHI Kathya- daughter Privacy Restrictions Requested None Height 157.5 cm Admission Weight 102.3 kg Weight Method Actual [place] Body Weight 50.12 kg Body Mass Index 41.24 kg/m2 Body Mass Index 41.24 kg/m2 Temperature Oral 36.8 DegC Peripheral Pulse Rate 76 bpm Respiratory Rate 18 br/min Systolic BP Left Arm 131 mmHg Diastolic BP Left Arm 105 mmHg >HHI Oxygen Saturation 94 % Status N/A Sensory Deficits None Sleep Apnea Snore Yes Sleep Apnea Tired No Sleep Apnea Obstruction No Sleep Apnea Pressure Yes Sleep Apnea BMI Yes Sleep Apnea Age Yes Sleep Apnea Neck No Sleep Apnea Gender No Sleep Apnea Score 4 High Risk for Sleep Apnea No Diagnosed With Sleep Apnea No Advanced Directives No - refuses information Infectious Disease Symptoms Patient states no symptoms Infectious Disease Recent Exposure No Alcohol and Drug Use No Employee of Institutional Living No Health Care Employee No History of Exposure to TB No History of Positive Chest X-Ray for TB No History of Positive TB Skin Test No Homeless No Known Immunosuppression No Recent Immigrant No Resident of Institutional Living No Bloody Sputum No Fatigue No Fever No Loss of Appetite No Night Sweats No Persistent Cough > 3 Weeks No Weight Loss No Safety Brochure Information Reviewed Yes [facility] Video Viewed No Barriers to Learning None evident Teaching Method Printed materials Teaching Evaluation Verbalizes/Nonverbally indicates understanding Preferred Written Language [place] Preferred Spoken Language [place] Information Given by Patient Patient's Current Physicians Patient's Current Physicians Discharge To, Anticipated Home independently Prev Test Positive/Diagnosis w/COVID-19 Yes Previous COVID-19 Positive Date 03/2020 Current Quarantine/Isolated any Illness No Any Contact with Sick Animals/Birds No Traveled Anywhere in Last 30 Days No Lost Weight Unintentionally Recently No Eat Poorly Due to Decreased Appetite No Total MST Score 0 N/A Personal Devices, Patient Valuables Dentures, upper Anesthesia/Transfusions Prior anesthesia, Prior transfusion Admission Note-Nursing Same Day Patient History 11/23/2021 5:51 EDT chlorhexidine topical 15 mL mL 11/23/2021 5:43 EDT Platelet Product Ready Platelet Ready for Pickup . Assessment and Plan [place] [employer] (ASA) physical status classification: Class IV. Anesthetic Preoperative Plan Premedication: intravenous. Anesthetic technique: General. Induction: intravenously. Maintenance airway: Oral endotracheal tube. Special techniques: Warming device. Special Monitoring: Arterial line, Central venous catheter, Continuous transesophageal echocardiogram. Postoperative pain management: Per surgeon. Risks discussed: nausea, vomiting, headache, sore throat, dental injury, hypotension, allergic reaction, serious complications. Informed consent: signed by patient. Beta Jung: Beta Jung Taken Within 24 Hrs: Yes. Digitally Signed by JOHNATHON TANNER DO on 11/23/2021 06:01 AM Digitally Signed by JOHNATHON TANNER DO on 11/23/2021 08:39 [id number] SARS-CoV-2 (COVID-19) RNA SLOAN+probe Ql (Nph)Negative (11/17/21 12:00 PM)AO Auto Urine [id number] Evaluation note* Diagnosis Onset Date Resolution Status History of coronary artery bypass surgery November, acute Essential hypertension chron ic Hyperlipemia chronic Hypothyroidism chronic IBS (irritable bowel syndrome) chronic Type 2 diabetes mellitus chr onic History of coronary artery bypass surgery November, acute Atherosclerotic heart diseas e of [place] coronary artery without angina pectoris chronic Dyspnea on exertion chronic Essential hypertension chron ic Hyperlipemia chronic Presence of stent in coronary artery March, [facility] Work Phone: [phone]) 452-539901-01-2017 Evaluation note* Diagnosis Onset Date Resolution Status History of non-ST elevation myocardial infarction (NSTEMI) acute Essential hypertension chron ic Hyperlipemia chronic Hypothyroidism chronic Presence of stent in coronary artery March, chronic Type 2 diabetes mellitus chr [facility] Work Phone: [phone]) 945-455201-01-2017 Evaluation note* Diagnosis Onset Date Resolution Status History of non-ST elevation myocardial infarction (NSTEMI) acute Essential hypertension chron ic Hyperlipemia chronic Hypothyroidism chronic Presence of stent in coronary artery March, chronic Type 2 diabetes mellitus chr onic Dyspnea on exertion acute Atherosclerotic heart diseas e [place] coronary artery without angina pectoris chronic Essential hypertension chron ic Hyperlipemia chronic Presence of stent in coronary artery March, [facility] Work Phone: [phone]) 892-202101-01-2017 Evaluation note* Diagnosis Onset Date Resolution Status History of non-ST elevation myocardial infarction (NSTEMI) acute Essential hypertension chron ic Hyperlipemia chronic Hypothyroidism chronic Presence of stent in coronary artery March, chronic Type 2 diabetes mellitus chr onic Atherosclerotic heart diseas e of [place] coronary artery without angina pectoris chronic Dyspnea on exertion chronic Essential hypertension chron ic Hyperlipemia chronic Presence of stent in coronary artery March, chronic Atherosclerotic heart diseas e [place] coronary artery without angina pectoris chronic Dyspnea on exertion chronic Essential hypertension chron ic Hyperlipemia chronic Presence of stent in coronary artery March, [facility] Work Phone: Evaluation + Plan note Future Appointments Appointment Date:11/21/2021 02:00:00 PM Scheduled Provider:POLLY PHILIPPE MD Location:[facility] Appointment Type:[facility] Evaluation + Plan note Future Appointments Appointment Date:12/05/2021 10:00:00 AM Scheduled Provider:JUAN JUAREZ Location:[facility] Appointment Type:[facility] Post Op [facility] Evaluation + Plan note Future Appointments Appointment Date:12/27/2021 01:00:00 PM Scheduled Provider:JUAN JUAREZ Location:[facility] [place] Appointment Type:[facility] Post Op Follow Up Future Scheduled Tests Laboratory* Basic Metabolic Panel 12/01/21 Radiology* XR Chest 2 Views (PA & Lateral) 12/27/21 * XR Chest 2 Views (PA & Lateral) 12/19/21 [facility] Evaluation note* Diagnosis Onset Date Resolution Status Atherosclerotic heart diseas e of [place] coronary artery without angina pectoris chronic Dyspnea on exertion chronic Essential hypertension chron ic Hyperlipemia chronic Presence of stent in coronary artery March, chronic [facility] Work Phone: Evaluation note* Diagnosis Onset Date Resolution Status Atherosclerotic heart diseas e of [place] coronary artery without angina pectoris chronic Dyspnea on exertion chronic Essential hypertension chron ic Hyperlipemia chronic History of coronary artery bypass surgery November, 022 acute Atherosclerotic heart diseas e of [place] coronary artery without angina pectoris chronic Essential hypertension chron ic Hyperlipemia chronic Hypothyroidism chronic IBS (irritable bowel syndrome) chronic Presence of stent in coronary artery March, chronic Type 2 diabetes mellitus chr onic [facility] Work Phone: History and physical note* CAROLINE Chandler: PERFORM, MODIFY Event Display: History and Physical Update Authored Date: [facility] course Narrative No data available for this section [facility] Hospital Discharge instructions No data available for this section [facility] Hospital Discharge instructions Additional Instructions Apply cream as prescribed and return for any worsening of symptoms.[facility] Work Phone: Progress note No data available for this section [facility] Summary Purpose Family History No Family History Records Found Relationship Condition Age at Onset Recorded Date/T obinna sister Malignant neoplasm of breast Unknown mother Hypertension Unknown Cardiac disease Unknown Myocardial infarction 61 Disorder of thyroid Unknown grandmother Arthritis Unknown Seizure Unknown father Cerebrovascular accident (CVA) Unknown brother Cardiac disease Unknown Myocardial infarction Unknown sister Coronary artery disease Unknown Advance Directives No Advanced Directives Records Found Advance Directive Response Recorded Date/ Time Living Will No April 25 12:33pm Power of Histologist No April 25, 2021 12:33pm Advance Directive Response Recorded Date/ Time Advance Directives No September 05 7:52am Living Will No September 05, 2021 7:52am Power of Histologist No September 05 7:52am Advance Directive Response Recorded Date/ Time Advance Directives No September 05 7:52am Living Will No September 08, 2021 12:28pm Power of Histologist No September 08 12:28pm Advance Directive Response Recorded Date/ Time Advance Directives No September 05 7:52am Living Will No November 05 2:17am Power of Histologist No November 05 022 2:17am Advance Directive Response Recorded Date/ Time Advance Directives No September 05 6:52am Living Will No January 21 3:59pm Power of Histologist No January 21, 2022 3:59pm Advance Directive Response Recorded Date/ Time Advance Directives No September 05 7:52am Living Will No January 21 4:59pm Power of Histologist No January 21, 2022 4:59pm Advance Directive Response Recorded Date/ Time Advance Directives No September 05 7:52am Living Will No July 28, 2022 1 :12pm Power of Histologist No July 28, 2022 1:12pm Advance Directive Response Recorded Date/ Time Living Will No January 14 1:05pm Do you have a Healthcare Power of Histologist? No January 15, 2024 1:05pm Living Will No April 29, 2 025 10:02pm Do you have a Healthcare Power of Histologist? No April 29, 2024 10:02pm Advance Directives No January 15, 2024 1:05pm Chief Complaint and Reason for Visit Chief Complaint CP, SOB CHECK UP 10 MO F/U Reason for Visit History of non-ST el evation myocardial infarction (NSTEMI) Essential hypertension Hyperlipemia Hypothyroidism Presence of stent in coronary artery Type 2 diabetes mellitus Chief Complaint CP, SOB CHECK UP 10 MO F/U SOB, HX OF CAD *MOODISPAW* SOB, HX OF CAD *MOODISPAW* DYSPNEA Reason for Visit History of non-ST el evation myocardial infarction (NSTEMI) Essential hypertension Hyperlipemia Hypothyroidism Presence of stent in coronary artery Type 2 diabetes mellitus Dyspnea on exertion 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 Essential hypertension Hyperlipemia Presence of stent in coronary artery Chief Complaint CP, SOB CHECK UP 10 MO F/U SOB, HX OF CAD *MOODISPAW* SOB, HX OF CAD *MOODISPAW* DYSPNEA DYSPNEA Reason for Visit History of non-ST el evation myocardial infarction (NSTEMI) Essential hypertension Hyperlipemia Hypothyroidism Presence of stent in coronary artery Type 2 diabetes mellitus Dyspnea on exertion 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 Essential hypertension Hyperlipemia Presence of stent in coronary artery Chief Complaint CHECK UP 10 MO F/U SOB, HX OF CAD *MOODISPAW* SOB, HX OF CAD *MOODISPAW* DYSPNEA DYSPNEA Update H&P for cath 09/05 [facility] CORONA/ ABN STRESS CORONA/ ABN STRESS Reason for Visit History of non-ST el evation myocardial infarction (NSTEMI) Essential hypertension Hyperlipemia Hypothyroidism Presence of stent in coronary artery Type 2 diabetes mellitus 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 Dyspnea on exertion Essential hypertension Hyperlipemia Presence of stent in coronary artery 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 Dyspnea on exertion Essential hypertension Hyperlipemia Presence of stent in coronary artery Chief Complaint CHECK UP 10 MO F/U SOB, HX OF CAD *MOODISPAW* SOB, HX OF CAD *MOODISPAW* DYSPNEA DYSPNEA Update H&P for cath 09/05 [facility] CORONA/ ABN STRESS CORONA/ ABN STRESS headache, chills Reason for Visit History of non-ST el evation myocardial infarction (NSTEMI) Essential hypertension Hyperlipemia Hypothyroidism Presence of stent in coronary artery Type 2 diabetes mellitus 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 Dyspnea on exertion Essential hypertension Hyperlipemia Presence of stent in coronary artery 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 Dyspnea on exertion Essential hypertension Hyperlipemia Presence of stent in coronary artery Chief Complaint SOB, HX OF CAD *MOOD ISPAW* SOB, HX OF CAD *MOODISPAW* DYSPNEA DYSPNEA Update H&P for cath 09/05 [facility] CORONA/ ABN STRESS CORONA/ ABN STRESS headache, chills CHEST PAIN Reason for Visit Atherosclerotic hear t disease of [place] coronary artery without angina pectoris Dyspnea on exertion Essential hypertension Hyperlipemia Presence of stent in coronary artery Chief Complaint CHEST PAIN Amb Documentation 6 M FU 6 M FU E ORDER Amb Documentation Reason for Visit History of coronary artery bypass surgery Essential hypertension Hyperlipemia Hypothyroidism IBS (irritable bowel syndrome) Type 2 diabetes mellitus History of coronary artery bypass surgery 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 Dyspnea on exertion Essential hypertension Hyperlipemia Presence of stent in coronary artery Chief Complaint CHEST PAIN Amb Documentation 6 M FU 6 M FU E ORDER Amb Documentation sob Reason for Visit History of coronary artery bypass surgery Essential hypertension Hyperlipemia Hypothyroidism IBS (irritable bowel syndrome) Type 2 diabetes mellitus History of coronary artery bypass surgery 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 Dyspnea on exertion Essential hypertension Hyperlipemia Presence of stent in coronary artery Chief Complaint 3 M FU 4 M FU Reason for Visit Atherosclerotic hear t disease of [place] coronary artery without angina pectoris Dyspnea on exertion Essential hypertension Hyperlipemia History of coronary artery bypass surgery 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 Essential hypertension Hyperlipemia Hypothyroidism IBS (irritable bowel syndrome) Presence of stent in coronary artery Type 2 diabetes mellitus Chief Complaint 3 M FU 4 M FU HEADACHE, RASH Reason for Visit Atherosclerotic hear t disease of [place] coronary artery without angina pectoris Dyspnea on exertion Essential hypertension Hyperlipemia History of coronary artery bypass surgery 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 Essential hypertension Hyperlipemia Hypothyroidism IBS (irritable bowel syndrome) Presence of stent in coronary artery Type 2 diabetes mellitus Chief Complaint Admit Date HYPERTENSIVE URGENCY April 29, 2024 8:28pm CP ADMIT April 29, 2024 10:59pm HYPERTENSIVE URGENCY April 30, 2024 11:46am HYPERTENSIVE URGENCY April 30, 2024 2:43pm 6 M FU July 02, 2024 12: 52pm E-ORDER July 16, 2024 9:32am Reason for Visit Admit Date Leukocytosis April 29, 2024 8:28pm Asthmatic bronchitis April 29, 2024 8:28pm Chest pain April 29, 2024 8:28pm CORONA (dyspnea on exertion) April 29, 2024 8:28pm Hypertensive urgency April 29, 2024 8:28pm History of coronary artery bypass surger y April 29, 2024 8:28pm History of left heart catheterization (L HC) April 29, 2024 8:28pm History of non-ST elevation myocardial i nfarction (NSTEMI) April 29, 2024 8:28pm Morbid obesity with BMI of 40.0-44.9, ad ult April 29, 2024 8:28pm Presence of stent in coronary artery Feb ru2024 8:28pm Fatigue July 02, 2024 12: 52pm Atherosclerotic heart diseas e of [place] coronary artery without angina pectoris July 02, 2024 12:52pm Essential hypertension July 02, 2024 12:52pm Hyperlipemia July 02, 2024 12: 52pm Hypothyroidism July 02, 2024 12: 52pm Type 2 diabetes mellitus July 02 12:52pm Chest pain July 02, 2024 12: 52pm Additional Source Comments INFORMATION SOURCE (unrecogn ized section and content) DATE CREATED AUTHOR 09/11/2017 [employer] DATE CREATED AUTHOR AUTHOR'S ORGANIZ ATION 12/28/2021 [employer] ([place]) DATE CREATED AUTHOR AUTHOR'S ORGANIZ ATION 07/24/2024 [facility] Goals (unrecognized section and content) Goals may be documented in a n alternate sectionGoals may be documented in an alternate sectionGoals may be documented in an alternate sectionGoals may be documented in an alternate sectionGoals may be documented in an alternate sectionGoals may be documented in an alternate section No data available for this section No data available for this section No data available for this section No data available for this sectionGoals may be documented in an alternate sectionGoals may be documented in an alternate sectionGoals may be documented in an alternate sectionGoals may be documented in an alternate section Care Team (unrecognized sect ion and content) Care Team Personnel Name: POLLY PHILIPPE MD Position: P4 Physician - Cardiothoracic Surgery Address: Address: [address] [place] [address] [address] [facility] [place] [address]- [place] Name: HARISH NOEL MD Member Role: Primary Care Physician Address: Address: [address] [place] [address] [place] [address]- Name: FORREST JEWELL MD Address: Address: [address] [address]- Care Team Related Persons Name: KATHERINE HOFFMANN Name: TIARRA KATHYA Care Team Personnel Name: POLLY PHILIPPE MD Position: P4 Physician - Cardiothoracic Surgery Med Service: Active Provider Member Role: Cardiothoracic Surgeon Address: Address: [address] [place] [address] [facility] [address] [facility] Cardiothoracic Surgery [place] [id number]- [place] Name: HARISH NOEL MD Member Role: Primary Care Physician Address: Address: [address] [place] [address]- Name: FORREST JEWELL MD Member Role: Addiction Treatment Counselor Address: Address: [address] [place] [id number]- Care Team Related Persons Name: CHRISTINE MOSS Name: KATHERINE HOFFMANN Name: TIARRA KATHYA Care Team Personnel Name: POLLY PHILIPPE MD Position: P4 Physician - Cardiothoracic Surgery Med Service: Active Provider Member Role: Cardiothoracic Surgeon Address: Address: [address] [place] [address] [address] [facility] Cardiothoracic Surgery [place] [id number]- Name: HARISH NOEL MD Member Role: Primary Care Physician Address: Address: [address] [place] [address]- Name: FORREST JEWELL MD Member Role: Addiction Treatment Counselor Address: Address: [facility] [address] [place] [address]- [place] Care Team Related Persons Name: CHRISTINE MOSS Name: KATHERINE HOFFMANN Name: TIARRA KATHYA Care Team Personnel Name: POLLY PHILIPPE MD Position: P4 Physician - Cardiothoracic Surgery Med Service: Active Provider Member Role: Cardiothoracic Surgeon Address: Address: [address] [place] [address] [facility] [address] [facility] Cardiothoracic Surgery [place] [id number]- Name: HARISH NOEL MD Member Role: Primary Care Physician Address: Address: [address] [place] [address] [address] [place] [address]- Name: FORREST JEWELL MD Member Role: Addiction Treatment Counselor Address: Address: [address] [facility] [address] [place] [address]- [place] Care Team Related Persons Name: CHRISTINE MOSS Name: KATHERINE HOFFMANN Name: KATHYA MAYEN Care Teams (unrecognized sec tion and content) Team Status: Active Member Role Status Dates No Primary Care Physician Family Provider Active Dr. Harish Noel MD Primary Care Provider Active Team Status: Inactive Member Role Status Dates Dr. Harish Noel MD Primary Care Provider, Attendi ng Provider Active Team Status: Inactive Member Role Status Dates Dr. Harish Noel MD Primary Care Provider, Referri ng Provider Active Rustam Francois ROLL FORM OPERATOR, ROLL FORM OPERATOR-C Attending Provider Active Team Status: Inactive Member Role Status Dates Dr. Harish Noel MD Primary Care Provider Active Rustam Francois ROLL FORM OPERATOR, ROLL FORM OPERATOR-C Attending Provider, Referring Pro vider Active Team Status: Inactive Member Role Status Dates Dr. Harish Noel MD Primary Care Provider Active Dr. Eb Parmar DO Emergency Provider Active Team Status: Active Member Role Status Dates Dr. Harish Noel MD Primary Care Provider Active Team Status: Inactive Member Role Status Dates Dr. Harish Noel MD Primary Care Provider Active Start: April 29, 2024 End: April 30, 2024 Dr. Sly Blanco DO Referring Provider Active Start: April 29, 2024 End: April 30, 2024 Dr. Sly Blanco DO Emergency Provider Active Start: April 29, 2024 End: April 30, 2024 Dr. Polly Lomeli DO Admit Provider Active Start: April 29, 2024 End: April 30, 2024 Dr. Polly Lomeli DO Other Provider Active Start: April 29, 2024 End: April 30, 2024 Dr. Nathan Torres DO Attending Provider Active Start: April 29, 2024 End: April 30, 2024 Dr. Nathan Torres DO Other Provider Active Star t: April 29, 2024 Team Status: Active Member Role Status Dates Dr. Harish Noel MD Primary Care Provider Active Start: April 29, 2024 End: April 29, 2024 Dr. Delgado Cruz MD Attending Provider Activ e Start: April 29, 2024 End: April 29, 2024 Dr. Polly Lomeli DO Referring Provider Active Start: April 29, 2024 End: April 29, 2024 Team Status: Active Member Role Status Dates Dr. Harish Noel MD Primary Care Provider Active Start: April 30, 2024 Dr. Sly Blanco DO Referring Provider Active Start: April 30, 2024 Dr. Sly Blanco DO Emergency Provider Active Start: April 30, 2024 Dr. Polly Lomeli DO Admit Provider Active Start: April 30, 2024 Dr. Polly Lomeli DO Other Provider Active Start: April 30, 2024 Dr. Nathan Torres DO Other Provider Active Star t: April 30, 2024 Dr. Delgado Cruz MD Attending Provider Activ e Start: April 30, 2024 Team Status: Active Member Role Status Dates Dr. Harish Noel MD Primary Care Provider Active Start: April 30, 2024 Dr. Sly Blanco DO Emergency Provider Active Start: April 30, 2024 Dr. Polly Lomeli DO Admit Provider Active Start: April 30, 2024 Dr. Polly Lomeli DO Other Provider Active Start: April 30, 2024 Dr. Nathan Torres DO Attending Provider Active Start: April 30, 2024 Dr. Nathan Torres DO Other Provider Active Star t: April 30, 2024 Team Status: Inactive Member Role Status Dates Dr. Harish Noel MD Primary Care Provider Active Start: July 02, 2024 End: July 02, 2024 Dr. Harish Noel MD Attending Provider Active Start: July 02, 2024 End: July 02, 2024 Team Status: Inactive Member Role Status Dates Dr. Harish Noel MD Primary Care Provider Active Start: July 16, 2024 End: July 16, 2024 Dr. Harish Noel MD Attending Provider Active Start: July 16, 2024 End: July 16, 2024 Dr. Harish Noel MD Referring Provider Active Start: July 16, 2024 End: July 16, 2024 FOR RECORDS PERTAINING TO PATIENTS WHO ARE OR HAVE BEEN ENROLLED IN A CHEMICAL DEPENDENCY/SUBSTANCEABUSE PROGRAM, SOME INFORMATION MAY BE OMITTED. This clinical summary was aggregated from multiple sources. Caution should be exercised in using it in the provision of clinical care. This summary normalizes information from multiple sources, and as a consequence, information in this document may materially change the coding, format and clinical context of patient data. In addition, data may be omitted in some cases. CLINICAL DECISIONS SHOULD BE BASED ON THE PRIMARY CLINICAL RECORDS. [facility] provides no warranty or guarantee of the accuracy or completeness of information in this document.
--- OUTSIDE RECORDS SUMMARY | 2024-09-07 00:55 | XMS RPT_ITS | CCD ---
Author Organization [facility] CliniSyal Care Team Providers Care Circuit Rider Name Role Phone VON ABARCA Unavailable Unavailable SAADIA HERNANDEZ Unavailable Unavailable SAADIA HERNANDEZ Unavailable Unavailable Dr. Harish Noel Primary Care Provider Dr. Harish Noel Attending Provider [phone] Dr. Harish Noel Referring Provider Roof BRAZE OPERATOR, BRAZE OPERATOR-C Rustam Garza Attending Provider Roof BRAZE OPERATOR, BRAZE OPERATOR-C Rustam Garza Referring Provider Roof BRAZE OPERATOR, BRAZE OPERATOR-C Rustam Garza Other Provider 1([facility])[phone] Forrest Jewell Attending Provider Dr. Jose Cotton Attending Provider Dr. Forrest Jewell Referring Provider Dr. Forrest Jewell Other Provider 1([facility])[phone] Harish Noel Primary Care Provider Dr. Harish Noel Referring Provider 1([facility])[phone] Roof BRAZE OPERATOR, BRAZE OPERATOR-C Rustam Garza Attending Provider HARISH NOEL [...] POLLY PHILIPPE MD Attending Unavailable BERT DAY, [facility] Primary Care Unavailable JOSE MARTIN MCARTHUR, POLLY Suggs Admitting Unavailable JOSE MARTIN MCARTHUR, POLLY Suggs Consulting Unavailable GERARDO MCARTHUR, DOLORES Consulting Unavailable JASMYN MCARTHUR, NIHAD Consulting Unavailable SAMUEL MANRIQUEZ MD, CHRIS Consulting Unavailable KELLEE MCARTHUR, GAGE Consulting Unavailanihs PHILIPPE MD, POLLY Suggs Attending Unavailable BERT MCARTHUR., [facility] Primary Care Unavailable Dr. Harish Noel Primary Care Provider Aminah Prado Attending Provider Unavailable Dr. Harish Noel Attending Provider [phone] Dr. Harish Noel Referring Provider [phone] Roof BRAZE OPERATOR, BRAZE OPERATOR-C Rustam Garza Attending Provider Jairo Vogel Attending Provider Unavailable Dr. Harish Noel Primary Care Provider Aminah Prado Attending Provider Unavailable Dr. Harish Noel Attending Provider [phone] Dr. Harish Noel Referring Provider [phone] Roof BRAZE OPERATOR, BRAZE OPERATOR-C Rustam Garza Attending Provider Jairo Vogel Attending Provider Unavailable Dr. Harish Noel Primary Care Provider Dr. Harish Noel Referring Provider [phone] Roof BRAZE OPERATOR, BRAZE OPERATOR-C uRstam Garza Attending Provider Dr. Harish Noel Attending Provider [phone] Dr. Harish Noel MD Primary Care Provider Dr. Sly Blanco DO Referring Provider Dr. [...] [alogliptin] Drug Allergy 06-17-19 22 Weal (disorder) [facility] Cardiothoracic Surgery (15 sources) Aspirin; Translations: [aspirin] Drug Allergy 06-17-19 22 blood clots [facility] [place] (11 sources) canagliflozin Drug Allergy 06-17-19 22 abdominal pain [facility] (11 sources) dulaglutide Drug Allergy 06-17-19 22 [facility] (15 sources) glipiZIDE; Translations: [glipizide] Drug Allergy 06-17-19 22 [facility] (14 sources) levothyroxine; Translations: [levothyroxine] Drug Allergy 06-17-19 Eruption of skin (disorder), Diarrhea (finding) [facility] Cardiothoracic Surgery (15 sources) metFORMIN; Translations: [metformin] Drug Allergy 06-17-19 Hives, Diarrhea [facility] (12 sources) Penicillins; Translations: [Penicillins] Allergy to substance 06-17-19 Hives [facility] (4 sources) canagliflozin; Translations: [canagliflozin] Drug Allergy Stomach Pains, Diarrhea [facility] (4 sources) dulaglutide; Translations: [dulaglutide] Drug Allergy [facility] (4 sources) HMG-CoA reductase inhibitor; Translations: [statins] Drug allergy [facility] (4 sources) Penicillin; Translations: [penicillins] Drug Allergy [facility] (1 source) alogliptin Drug Allergy 07-03-19 [facility] (1 source) Aspirin Drug Allergy 07-03-19 [facility] (1 source) canagliflozin Drug Allergy 07-03-19 [facility] (1 source) dulaglutide Drug Allergy 07-03-19 [facility] (1 source) glipiZIDE Drug Allergy 07-03-19 [facility] (1 source) metFORMIN Drug Allergy 07-03-19 [facility] Medications Current Medications Medication Drug Class(es) [...] 15 mL, 3 Refill(s), [facility]: [facility], 157.2, cm, 01/21/20 14:13:00 EST, Height, [...] # 25 tab(s), 3 Refill(s), Pharmacy: [facility] [address], 157.5, cm, 08/31/19 16:27:00 EDT, Height, [...] 0 Refill(s) Start Date: 11/29/21 Status: Ordered [id number] 200 actuat albuterol 0.09 mg/actuat metered dose [...] 2020 1:00am May 11, 2020 12:16pm thyroid (group home) 60 mg oral tablet (18 sources) Start: 06-16-2021 End: 05-16-2022 take 1 tablet by mouth once daily Thyroid ([place]) ([place] Thyroid) 60 mg tablet Discontinued 60 mg [...] source) I25.10 - Atherosclerotic heart disease of [place] coronary artery without angina pectoris,R07.9 - Chest [...] 07-16-2024 Anion gap [Moles/Vol] 11 mmol/L 5- [facility] BUN/creatinine ratioOrdered By: Harish Noel on 07-16-2024 Urea nitrogen/Creatinine [Mass ratio] 18.8 mg/mg - [facility] Bilirubin, totalOrdered By: Harish Noel on 07-16-2024 Bilirubin [Mass/Vol] 0.73 mg/dL 0.00-1.30 [facility] Carbon dioxide, total [Moles /volume] in Central venous bloodOrdered By: Harish Noel on 07-16-2024 CO2 [Moles/Vol] 26.7 mmol/L 21.0-32.0 [facility] Chloride assayOrdered By: Madison Noel on 07-16-2024 Chloride [Moles/Vol] 97 mmol/L Low 98-108 [facility] Comprehensive Metabolic Prof ilon 07-16-2024 Albumin [Mass/Vol] 3.8 g/dL Normal 3.4-4.8 [facility] Comment on above: Performed By: #### L 501.9985, L501.56983, L500.4050, L501.9520, L503.0106, L501.5200, L506.1001, L506.0400 ####[facility] [address] [place], [address] Albumin/Globulin [Mass ratio] 1.2 {ratio} Normal 0.9-2.4 [facility] Comment on above: Performed By: #### L 501.9985, L501.32690, L500.4050, L501.9520, L503.0106, L501.5200, L506.1001, L506.0400 ####[facility] [address] [place], [address] ALK PHOS 94 U/L Normal 35-104 [facility] Comment on above: Performed By: #### L 501.9985, L501.12403, L500.4050, L501.9520, L503.0106, L501.5200, L506.1001, L506.0400 ####[facility] [address] [place], [address] ALT [Catalytic activity/Vol] 12 U/L Normal <=34 [facility] Comment on above: Performed By: #### L 501.9985, L501.81513, L500.4050, L501.9520, L503.0106, L501.5200, L506.1001, L506.0400 ####[facility] [address] [place], [address] AST [Catalytic activity/Vol] 16 U/L Normal <=31 [facility] Comment on above: Performed By: #### L 501.9985, L501.23453, L500.4050, L501.9520, L503.0106, L501.5200, L506.1001, L506.0400 ####[facility] [address] [place], [address] Bilirubin [Mass/Vol] 0.73 mg/dL Normal 0.00-1.30 [facility] Comment on above: Performed By: #### L 501.9985, L501.21896, L500.4050, L501.9520, L503.0106, L501.5200, L506.1001, L506.0400 ####[facility] [address] [place], [address] BUN/CRE 18.8 RATIO Normal 10-20 [facility] Comment on above: Performed By: #### L 501.9985, L501.05078, L500.4050, L501.9520, L503.0106, L501.5200, L506.1001, L506.0400 ####[facility] [address] [place], [address] Calcium [Mass/Vol] 9.1 mg/dL Normal 7.6-11.0 [facility] Comment on above: Performed By: #### L 501.9985, L501.89063, L500.4050, L501.9520, L503.0106, L501.5200, L506.1001, L506.0400 ####[facility] [address] [place], [address] Chloride [Moles/Vol] 97 mmol/L Low 98-108 [facility] Comment on above: Performed By: #### L 501.9985, L501.30202, L500.4050, L501.9520, L503.0106, L501.5200, L506.1001, L506.0400 ####[facility] [address] [place], [address] CO2 [Moles/Vol] 26.7 mmol/L Normal 21.0-32.0 [facility] Comment on above: Performed By: #### L 501.9985, L501.44584, L500.4050, L501.9520, L503.0106, L501.5200, L506.1001, L506.0400 ####[facility] [address] [place], [address] Creatinine [Mass/Vol] 0.84 mg/dL Normal 0.70-1.20 [facility] Comment on above: Performed By: #### L 501.9985, L501.92833, L500.4050, L501.9520, L503.0106, L501.5200, L506.1001, L506.0400 ####[facility] [address] [place], [address] GAP 11 Normal 5-15 [facility] Comment on above: Performed By: #### L 501.9985, L501.42164, L500.4050, L501.9520, L503.0106, L501.5200, L506.1001, L506.0400 ####[facility] [address], [address] GFR/1.73 sq M.predicted among non-blacks MDRD (S/P/Bld) [Vol rate/Area] 74 mL/min/{1.73_m2} Normal >60 [facility] Comment on above: Result Comment: mL/m in/1.73m2 CKD-EPI Creatinine Equation (2020) Performed By: #### L 501.9985, L501.12259, L500.4050, L501.9520, L503.0106, L501.5200, L506.1001, L506.0400 ####[facility] [address] [place], [address] Globulin (S) [Mass/Vol] 3.3 g/dL Normal 2.2-4.2 [facility] Comment on above: Performed By: #### L 501.9985, L501.48864, L500.4050, L501.9520, L503.0106, L501.5200, L506.1001, L506.0400 ####[facility] [address] [place], [address] Glucose [Mass/Vol] 253 mg/dL High 70-99 [facility] Comment on above: Performed By: #### L 501.9985, L501.42800, L500.4050, L501.9520, L503.0106, L501.5200, L506.1001, L506.0400 ####[facility] [address] [place], [address] Potassium [Moles/Vol] 4.5 mmol/L Normal 3.3-5.1 [facility] Comment on above: Performed By: #### L 501.9985, L501.75036, L500.4050, L501.9520, L503.0106, L501.5200, L506.1001, L506.0400 ####[facility] [address] [place], [address] Sodium [Moles/Vol] 134 mmol/L Normal 133-145 [facility] Comment on above: Performed By: #### L 501.9985, L501.05927, L500.4050, L501.9520, L503.0106, L501.5200, L506.1001, L506.0400 ####[facility] [address] [place], [address] T PROT 7.1 g/dL Normal 5.9-8.4 [facility] Comment on above: Performed By: #### L 501.9985, L501.94286, L500.4050, L501.9520, L503.0106, L501.5200, L506.1001, L506.0400 ####[facility] [address] [place], [place], [id number] Urea nitrogen [Mass/Vol] 16 mg/dL Normal 4-19 [facility] Comment on above: Performed By: #### L 501.9985, L501.65113, L500.4050, L501.9520, L503.0106, L501.5200, L506.1001, L506.0400 ####[facility] [address] [place], [address] Free T3on 07-16-2024 Free T3 [Mass/Vol] 2.8 pg/mL Normal 2.18-3.98 [facility] Comment on above: Performed By: #### L 501.9985, L501.61967, L500.4050, L501.9520, L503.0106, L501.5200, L506.1001, L506.0400 ####[facility] [address] [place], [place], [id number] Free H6Vmgxtjy By: Harish garza on 07-16-2024 Free Triiodothyronine (T3) pg/dL 2.8 pg/mL 2.18-3.98 [facility] GFR/1.73 sq M.predicted domenico g non-blacks MDRD (S/P/Bld) [Vol rate/Area]Ordered By: Harish Noel on 07-16-2024 Estimated GFR (MDRD) Non-Af Amer 74 >60 [facility] Comment on above: mL/min/1.73m2 CKD-EP I Creatinine Equation (2020) Hemoglobin A1con 07-16-2024 HbA1c (Bld) [Mass fraction] 9.6 % High <=5.6 [facility] Comment on above: Result Comment: Norm al < 5.7 % Prediabetic 5.7 - 6.4 % Diabetic >or= 6.5 % Please note range changes. Performed By: #### L 501.9985, L501.47001, L500.4050, L501.9520, L503.0106, L501.5200, L506.1001, L506.0400 #### [facility] [address] [place], [place], [address] Hemoglobin A1c percentageOrd ered By: Harish Noel on 07-16-2024 HbA1c (Bld) [Mass fraction] 9.6 % High <5.7 [facility] Comment on above: Normal < 5.7 % Predi abetic 5.7 - 6.4 % Diabetic >or= 6.5 % Please note range changes. Laboratory - Chemistry and C hemistry - challengeOrdered By: Harish Noel on 07-16-2024 AST [Catalytic activity/Vol] 16 U/L <32 [facility] Magnesiumon 07-16-2024 Magnesium [Mass/Vol] 2.0 mg/dL Normal 1.5-2.2 [facility] Comment on above: Performed By: #### L 501.9985, L501.61966, L500.4050, L501.9520, L503.0106, L501.5200, L506.1001, L506.0400 ####[facility] [address] [place], [place], [address] Magnesium (Unsp spec) [Mass/ Vol]Ordered By: Harish Noel on 07-16-2024 Magnesium [Mass/Vol] 2.0 mg/dL 1.5-2.2 [facility] Potassium (Unsp spec) [Mass/ Vol]Ordered By: Harish Noel on 07-16-2024 Potassium [Moles/Vol] 4.5 mmol/L 3.3-5.1 [facility] Serum creatinine measurement (mass/volume)Ordered By: Harish Noel on 07-16-2024 Creatinine [Mass/Vol] 0.84 mg/dL 0.70-1.20 [facility] Serum globulin measurementOr dered By: Harish Noel on 07-16-2024 Globulin (S) [Mass/Vol] 3.3 g/dL 2.2-4.2 [facility] Serum glucose measurement (m ass/volume)Ordered By: Harish Noel on 07-16-2024 Glucose [Mass/Vol] 253 mg/dL High 70-99 [facility] Serum or plasma alanine nova otransferase (ALT) measurementOrdered By: Harish Noel on 07-16-2024 ALT [Catalytic activity/Vol] 12 U/L <35 [facility] Serum or plasma albumin betsy urement (mass/volume)Ordered By: Harish Noel on 07-16-2024 Albumin [Mass/Vol] 3.8 g/dL 3.4-4.8 [facility] Serum or plasma albumin/glob ulin mass ratioOrdered By: Harish Noel on 07-16-2024 Albumin/Globulin [Mass ratio] 1.2 {ratio} 0.9-2.4 [facility] Serum or plasma alkaline maritza sphatase measurementOrdered By: Harish Noel on 07-16-2024 ALP [Catalytic activity/Vol] 94 U/L 35-104 [facility] Serum or plasma calcium betsy urement (mass/volume)Ordered By: Harish Noel on 07-16-2024 Calcium [Mass/Vol] 9.1 mg/dL 7.6-11.0 [facility] Serum or plasma urea nitroge n measurement (mass/volume)Ordered By: Harish Noel on 07-16-2024 Urea nitrogen [Mass/Vol] 16 mg/dL 4-19 [facility] Sodium levelOrdered By: Ida Noel on 07-16-2024 Sodium [Moles/Vol] 134 mmol/L 133-145 [facility] T4 Free Directon 07-16-2024 T4 FREE DIRECT 0.90 ng/dL Normal 0.76-1.46 [facility] Comment on above: Performed By: #### L 501.9939, L501.65559, L500.4050, L501.9520, L503.0106, L501.5200, L506.1001, L506.0400 ####[facility] [address] [place], [address] T4 freeOrdered By: Harish garza on 07-16-2024 Free T4 [Mass/Vol] 0.90 ng/dL 0.76-1.46 [facility] TSH DL <= 0.005 mIU/L QnOrde red By: Harish Noel on 07-16-2024 Thyroid Stimulating Hormone (TSH) 8.170 uIU/mL High 0.300-4.200 [facility] Thyroid Stim Hormone (TSH)on 07-16-2024 TSH 8.170 uIU/mL High 0.300-4.200 [facility] Comment on above: Performed By: #### L 501.9985, L501.61192, L500.4050, L501.9520, L503.0106, L501.5200, L506.1001, L506.0400 ####[facility] [address] [place], [place], [id number] Total proteinOrdered By: Sharon Noel on 07-16-2024 Protein [Mass/Vol] 7.1 g/dL 5.9-8.4 [facility] Vitamin B12on 07-16-2024 Cobalamin (Vitamin B12) [Mass/Vol] 193 pg/mL Normal 180-914 [facility] Comment on above: Performed By: #### L 501.9985, L501.36230, L500.4050, L501.9520, L503.0106, L501.5200, L506.1001, L506.0400 ####[facility] [address] [place], [place], [id number] Vitamin B12 ser/plasOrdered By: Harish Noel on 07-16-2024 Cobalamin (Vitamin B12) [Mass/Vol] 193 pg/mL 180-914 [facility] Vitamin D, 25-hydroxyOrdered By: Harish Noel on 07-16-2024 Vitamin D 25-Hydroxy 12.9 ng/mL Low 30-100 [facility] Comment on above: Vitamin D StatusDefi ciency: <20 ng/mL (50nmol/L)Insufficiency: 20-30 ng/mL (50-75 nmol/L)Sufficiency: 30-100 ng/mL (75-250 nmol/L)Toxicity: >100 ng/mL (>250 nmol/L) Vitamin D,25 Hydroxyon 07-16 Vitamin D 25-OH 12.9 ng/mL Low 30-100 [facility] Comment on above: Result Comment: Lucy min D Status Deficiency: <20 ng/mL (50nmol/L) Insufficiency: 20-30 ng/mL (50-75 nmol/L) Sufficiency: 30-100 ng/mL (75-250 nmol/L) Toxicity: >100 ng/mL (>250 nmol/L) Performed By: #### L 501.9985, L501.79123, L500.4050, L501.9520, L503.0106, L501.5200, L506.1001, L506.0400 ####[facility] [address] [place], [address] MR/BMSLIBORIOBon 07-02-2024 MR/BMS.[facility] [address] [place] [address] OFFICE VISIT Date of Service: 07/02/24 MR#: [id number] Acct: [id number] Name: FELICITAS ALCANTARA Rep #: [id number] : 1950 Provider: Dr. 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 She is intolerant to 5 major classes [...] more test (more content not included)... Normal [facility] 12 Lead EKGon 04-30-2024 12 Lead EKG [facility] [address] [place] [address] 12 Lead EKG 04/29/24 2256 MR#: [id number] Acct: [id number] Name: FELICITAS ALCANTARA Rep #: [id number] : 1950 73 From: Delgado Cruz MD Attending Dr: Dr. Nathan Torres, DO Status: DIS RUBINA Ordering Dr: Polyl Lomeli DO Date: 04/30/24 Location: [facility] Sex: F C Admitted: 04/29/24 Test Reason [...] IS UNCONFIRMED Confirmed by ANTHONY MCARTHUR, ADELA ([id number]), editor newspaper ALLA LAINEZ ([id number]) on 05/01/2024 1:04:57 PM Referred By: Sly Blanco Confirmed By: ADELA CRUZ MD 05/01/24 1304 Date Delgado Cruz MD CC: Dr. Polly Lomeli DO; Dr. Nathan Torres DO; Dr. Harish Noel MD; Dr. Sly Blanco DO Signed Normal [facility] Absolute neutrophil countOrd ered By: Polly Herr on 04-30-2024 Neutrophils (Bld) [#/Vol] 16.1 10*3/uL High 2.0-7.7 [facility] Albumin to globulin ratioOrd ered By: Polly Herr on 04-30-2024 Albumin/Globulin [Mass ratio] 0.8 {ratio} Low 0.9-2.4 [facility] Automated blood erythrocyte countOrdered By: Polly Herr on 04-30-2024 RBC (Bld) [#/Vol] 5.60 10*6/uL High 4.2-5.4 [facility] Comment on above: Performed By: #### L 501.5200, L501.2300, L500.4050, L100.0100 ####[facility] [address] [place], [place], [address] Automated blood hematocrit ( percentage)Ordered By: Polly Herr on 04-30-2024 Hematocrit (Bld) [Volume fraction] 49.8 % High 37-47 [facility] Comment on above: Performed By: #### L 501.5200, L501.2300, L500.4050, L100.0100 ####[facility] [address] [place], [address] Automated lymphocyte count a s percentage of total leukocytesOrdered By: Polly Herr on 04-30-2024 Lymphocytes/100 WBC (Bld) 7.1 % Low 19-41 [facility] Comment on above: Performed By: #### L 501.5200, L501.2300, L500.4050, L100.0100 ####[facility] [address] [place], [address] Basophil percentageOrdered B y: Polly Herr on 04-30-2024 Basophils/100 WBC (Bld) 0.6 % Normal 0-1 [facility] Comment on above: Performed By: #### L 501.5200, L501.2300, L500.4050, L100.0100 ####[facility] [address] [place], [address] Bedside Glucoseon 04-30-2024 FINGERSTICK GLU 307 mg/dL High 74-106 [facility] Comment on above: Result Comment: RIMMA GEMENT OF PATIENT CARE PER NURSING PROTOCOL Performed By: #### L 100.0100, L500.2500, L300.8000, L501.4020 #### [facility] [address] [place], [address] FINGERSTICK GLU 399 mg/dL High 74-106 [facility] Comment on above: Result Comment: RIMMA GEMENT OF PATIENT CARE PER NURSING PROTOCOL Performed By: #### L 501.080 ####[facility] [address] [place], [address] FINGERSTICK GLU 404 mg/dL High 74-106 [facility] Comment on above: Result Comment: RIMMA GEMENT OF PATIENT CARE PER NURSING PROTOCOL Performed By: #### L 100.0100, L500.2500, L300.8000, L501.4020 #### [facility] [address] [place], [address] FINGERSTICK GLU 365 mg/dL High 74-106 [facility] Comment on above: Result Comment: RIMMA GEMENT OF PATIENT CARE PER NURSING PROTOCOL Performed By: #### L 100.0100, L500.2500, L300.8000, L501.4020 #### [facility] [address] [place], [address] FINGERSTICK GLU 245 mg/dL High 74-106 [facility] Comment on above: Result Comment: RIMMA GEMENT OF PATIENT CARE PER NURSING PROTOCOL Performed By: #### L 100.0100, L500.2500, L300.8000, L501.4020 #### [facility] [address] [place], [address] Bilirubin, totalOrdered By: Polly Herr on 04-30-2024 Bilirubin [Mass/Vol] 1.10 mg/dL High 0.20-1.00 [facility] Comment on above: For patients on eltr ombopag therapy, use of Dimension [place] TBIL is not recommended. Blood urea nitrogen (BUN)/cr eatinine ratioOrdered By: Polly Herr on 04-30-2024 Urea nitrogen/Creatinine [Mass ratio] 17.6 mg/mg 10-20 [facility] CBC W/Diff, Automatedon 04-18 Absolute Lymph 1.26 X10 3/uL Normal 0.83-4.51 [facility] Comment on above: Performed By: #### L 501.5200, L501.2300, L500.4050, L100.0100 ####[facility] [address] [place], [address] Absolute Neut 16.1 X10 3/uL High 2.0-7.7 [facility] Comment on above: Performed By: #### L 501.5200, L501.2300, L500.4050, L100.0100 ####[facility] [address] [place], [address] IG% 1.200 High 0.0-0.9 [facility] Comment on above: Result Comment: IG% - Immature Granulocytes (promyelocytes, myelocytes and metamyelocytes) > 1% indicates that a LEFT SHIFT is Present. Performed By: #### L 501.5200, L501.2300, L500.4050, L100.0100 ####[facility] [address] [place], [address] Nucleated RBC (Bld) [#/Vol] 0 10*3/uL Normal 0-5 [facility] Comment on above: Performed By: #### L 501.5200, L501.2300, L500.4050, L100.0100 ####[facility] [address] [place], [address] RDW SD 43.2 fl Normal 35.1-43.9 [facility] Comment on above: Performed By: #### L 501.5200, L501.2300, L500.4050, L100.0100 ####[facility] [address] [place], [address] Carbon dioxide measurementOr dered By: Polly Herr on 04-30-2024 CO2 [Moles/Vol] 25.0 mmol/L 21.0-32.0 [facility] Chloride measurementOrdered By: Polly Herr on 04-30-2024 Chloride [Moles/Vol] 100 mmol/L 98-107 [facility] Comprehensive Metabolic Prof ilon 04-30-2024 Albumin [Mass/Vol] 3.8 g/dL Normal 3.2-5.0 [facility] Comment on above: Performed By: #### L 501.5200, L501.2300, L500.4050, L100.0100 ####[facility] [address] [place], [address] Albumin/Globulin [Mass ratio] 0.8 {ratio} Low 0.9-2.4 [facility] Comment on above: Performed By: #### L 501.5200, L501.2300, L500.4050, L100.0100 ####[facility] [address] [place], [address] ALK P 116 U/L Normal 45-117 [facility] Comment on above: Performed By: #### L 501.5200, L501.2300, L500.4050, L100.0100 ####[facility] [address] [place], [address] ALT [Catalytic activity/Vol] 19 U/L Normal 13-56 [facility] Comment on above: Performed By: #### L 501.5200, L501.2300, L500.4050, L100.0100 ####[facility] [address] [place], [address] AST [Catalytic activity/Vol] 15 U/L Normal 15-37 [facility] Comment on above: Performed By: #### L 501.5200, L501.2300, L500.4050, L100.0100 ####[facility] [address] [place], [address] Bilirubin [Mass/Vol] 1.10 mg/dL High 0.20-1.00 [facility] Comment on above: Result Comment: For patients on eltrombopag therapy, use of Dimension [place] TBIL is not recommended. Performed By: #### L 501.5200, L501.2300, L500.4050, L100.0100 ####[facility] [address] [place], [address] BUN/CRE 17.6 RATIO Normal 10-20 [facility] Comment on above: Performed By: #### L 501.5200, L501.2300, L500.4050, L100.0100 ####[facility] [address] [place], [address] CA,Total 10.4 mg/dL High 8.5-10.1 [facility] Comment on above: Performed By: #### L 501.5200, L501.2300, L500.4050, L100.0100 ####[facility] [address] [place], [address] Chloride [Moles/Vol] 100 mmol/L Normal 98-107 [facility] Comment on above: Performed By: #### L 501.5200, L501.2300, L500.4050, L100.0100 ####[facility] [address] [place], [address] CO2 [Moles/Vol] 25.0 mmol/L Normal 21.0-32.0 [facility] Comment on above: Performed By: #### L 501.5200, L501.2300, L500.4050, L100.0100 ####[facility] [address] [place], [address] Creatinine [Mass/Vol] 1.08 mg/dL High 0.55-1.02 [facility] Comment on above: Result Comment: The validity of the calculated GFR GFRAA in patients over 70 years has not been determined. Clinical correlation is essential. Performed By: #### L 501.5200, L501.2300, L500.4050, L100.0100 ####[facility] [address] [place], [address] ECRCL 52.31 ml/min Normal [facility] Comment on above: Performed By: #### L 501.5200, L501.2300, L500.4050, L100.0100 ####[facility] [address] [place], [address] EST GFR - AA 64 mL/min Normal >60 [facility] Comment on above: Result Comment: Afri can Bhutanese GFR Calc Performed By: #### L 501.5200, L501.2300, L500.4050, L100.0100 ####[facility] [address] [place], [address] GAP 13 Normal 5-15 [facility] Comment on above: Performed By: #### L 501.5200, L501.2300, L500.4050, L100.0100 ####[facility] [address] [place], [address] GFR/1.73 sq M.predicted among non-blacks MDRD (S/P/Bld) [Vol rate/Area] 53 mL/min/{1.73_m2} Low >60 [facility] Comment on above: Result Comment: Non- GFR Calc Performed By: #### L 501.5200, L501.2300, L500.4050, L100.0100 ####[facility] [address] [place], [address] Globulin (S) [Mass/Vol] 4.6 g/dL High 2.2-4.2 [facility] Comment on above: Performed By: #### L 501.5200, L501.2300, L500.4050, L100.0100 ####[facility] [address] [place], [address] Glucose [Mass/Vol] 352 mg/dL High 74-106 [facility] Comment on above: Result Comment: Gluc ose result greater than or equal to 200 mg/dL suggests DIABETES MELLITUS per A.D.A. criteria. Performed By: #### L 501.5200, L501.2300, L500.4050, L100.0100 ####[facility] [address] [place], [address] Potassium [Moles/Vol] 4.4 mmol/L Normal 3.5-5.1 [facility] Comment on above: Performed By: #### L 501.5200, L501.2300, L500.4050, L100.0100 ####[facility] [address] [place], [address] Sodium [Moles/Vol] 137 mmol/L Normal 136-145 [facility] Comment on above: Performed By: #### L 501.5200, L501.2300, L500.4050, L100.0100 ####[facility] [address] [place], [address] T PROT 8.4 g/dL High 6.4-8.2 [facility] Comment on above: Performed By: #### L 501.5200, L501.2300, L500.4050, L100.0100 ####[facility] [address] [place], [address] Urea nitrogen [Mass/Vol] 19 mg/dL High 7-18 [facility] Comment on above: Performed By: #### L 501.5200, L501.2300, L500.4050, L100.0100 ####[facility] [address] [place], [address] Eosinophil percentageOrdered By: Polly Herr on 04-30-2024 Eosinophils/100 WBC (Bld) 0.0 % Normal 0-5 [facility] Comment on above: Performed By: #### L 501.5200, L501.2300, L500.4050, L100.0100 ####[facility] [address] [place], [address] Erythrocyte distribution wid th (RBC) [Ratio]Ordered By: Polly Herr on 04-30-2024 Erythrocyte distribution width (RBC) [Entitic vol] 43.2 fL 35.1-43.9 [facility] Erythrocyte distribution wid th ratioOrdered By: Polly Herr on 04-30-2024 Erythrocyte distribution width (RBC) [Ratio] 13.3 % Normal 11.6-14.6 [facility] Comment on above: Performed By: #### L 501.5200, L501.2300, L500.4050, L100.0100 ####[facility] [address] [place], [place], [id number] Estimated glomerular filtrat ion rate (GFR) AmericanOrdered By: Polly Herr on 04-30-2024 Estimated GFR (MDRD) Amer 64 mL/min >60 [facility] Comment on above: GFR Calc Estimation of creatinine keo aranceOrdered By: Polly Herr on 04-30-2024 Estimated Creatinine Clearance Calc 52.31 ml/min [facility] Glomerular filtration rate ( GFR) estimationOrdered By: Polly Herr on 04-30-2024 Estimated GFR (MDRD) Non-Af Amer 53 mL/min Low >60 [facility] Comment on above: Non- GFR Calc Glucose measurementOrdered B y: Polly Herr on 04-30-2024 Glucose [Mass/Vol] 352 mg/dL [address] [facility] Comment on above: Glucose result great er than or equal to 200 mg/dLsuggests DIABETES MELLITUS per A.D.A. criteria. [facility] deOrdered By: Nathan Torres on 04-30-2024 Bedside Glucose (Misc Panel) 307 mg/dL [address] Comment on above: MANAGEMENT OF PATIEN T CARE PER NURSING PROTOCOL Hemoglobin measurementOrdere d By: Polly Herr on 04-30-2024 Hemoglobin (Bld) [Mass/Vol] 16.3 g/dL [facility] 12.0-15.0 [facility] Comment on above: Performed By: #### L 501.5200, L501.2300, L500.4050, L100.0100 ####[facility] [address] [place], [place], [id number] Immature granulocytes/100 WB C Auto (Bld)Ordered By: Polly Herr on 04-30-2024 Immature granulocytes/100 WBC (Bld) 1.200 % High 0.0-0.9 [facility] Comment on above: IG% - Immature Granu locytes (promyelocytes, myelocytes and metamyelocytes) > 1% indicates that a LEFT SHIFT is Present. Laboratory - Chemistry and C hemistry - challengeOrdered By: Polly Herr on 04-30-2024 AST [Catalytic activity/Vol] 15 U/L 15-37 [facility] Lymphocytes Auto (Unsp spec) [#/Vol]Ordered By: Polly Herr on 04-30-2024 Lymphocytes (Bld) [#/Vol] 1.26 10*3/uL 0.83-4.51 [facility] MCV (mean corpuscular volume ) determinationOrdered By: Polly Herr on 04-30-2024 MCV (RBC) [Entitic vol] 88.9 fL Normal 81-99 [facility] Comment on above: Performed By: #### L 501.5200, L501.2300, L500.4050, L100.0100 ####[facility] [address] [place], [address] Magnesiumon 04-30-2024 Magnesium [Mass/Vol] 2.1 mg/dL Normal 1.6-2.6 [facility] Comment on above: Performed By: #### L 501.5200, L501.2300, L500.4050, L100.0100 ####[facility] [address] [place], [address] Magnesium measurementOrdered By: Polly Herr on 04-30-2024 Magnesium [Mass/Vol] 2.1 mg/dL 1.6-2.6 [facility] Mean corpuscular hemoglobin (MCH) determinationOrdered By: Polly Herr on 04-30-2024 MCH (RBC) [Entitic mass] 29.1 pg Normal 27.0-32.0 [facility] Comment on above: Performed By: #### L 501.5200, L501.2300, L500.4050, L100.0100 ####[facility] [address] [place], [address] Mean corpuscular hemoglobin concentration (MCHC) determinationOrdered By: Polly Herr on 04-30-2024 MCHC (RBC) [Mass/Vol] 32.7 g/dL Normal 32-36 [facility] Comment on above: Performed By: #### L 501.5200, L501.2300, L500.4050, L100.0100 ####[facility] [address] [place], [address] Mean platelet volume determi nationOrdered By: Polly Herr on 04-30-2024 Platelet mean volume (Bld) [Entitic vol] 10.6 fL Normal 6.2-12.0 [facility] Comment on above: Performed By: #### L 501.5200, L501.2300, L500.4050, L100.0100 ####[facility] [address] [place], [address] Monocyte percentageOrdered B y: Polly Herr on 04-30-2024 Monocytes/100 WBC (Bld) 0.5 % Normal 0-10 [facility] Comment on above: Performed By: #### L 501.5200, L501.2300, L500.4050, L100.0100 ####[facility] [address] [place], [address] Neutrophil percentageOrdered By: Polly Herr on 04-30-2024 Neutrophils/100 WBC (Bld) 90.6 % High 47-70 [facility] Comment on above: Performed By: #### L 501.5200, L501.2300, L500.4050, L100.0100 ####[facility] [address] [place], [address] Nucleated red blood cell per centageOrdered By: Polly Herr on 04-30-2024 Nucleated RBC/100 WBC (Bld) [Ratio] 0 % 0-5 [facility] Phosphoruson 04-30-2024 Phosphate [Mass/Vol] 3.7 mg/dL Normal 2.5-4.9 [facility] Comment on above: Performed By: #### L 501.5200, L501.2300, L500.4050, L100.0100 ####[facility] [address] [place], [address] Phosphorus measurementOrdere d By: Polly Herr on 04-30-2024 Phosphorus Level 3.7 mg/dL 2.5-4.9 [facility] Platelet countOrdered By: Mane Herr on 04-30-2024 Platelets (Bld) [#/Vol] 328 10*3/uL Normal 150-450 [facility] Comment on above: Performed By: #### L 501.5200, L501.2300, L500.4050, L100.0100 ####[facility] [address] [place], [address] Potassium measurementOrdered By: Polly Herr on 04-30-2024 Potassium [Moles/Vol] 4.4 mmol/L 3.5-5.1 [facility] Serum anion gap measurementO rdered By: Polly Herr on 04-30-2024 Anion gap [Moles/Vol] 13 mmol/L 5-15 [facility] Serum globulin measurementOr dered By: Polly Herr on 04-30-2024 Globulin (S) [Mass/Vol] 4.6 g/dL High 2.2-4.2 [facility] Serum or plasma alanine nova otransferase (ALT) measurementOrdered By: Polly Herr on 04-30-2024 ALT [Catalytic activity/Vol] 19 U/L 13-56 [facility] Serum or plasma albumin betsy urement (mass/volume)Ordered By: Polly Herr on 04-30-2024 Albumin [Mass/Vol] 3.8 g/dL 3.2-5.0 [facility] Serum or plasma alkaline maritza sphatase measurementOrdered By: Polly Herr on 04-30-2024 ALP [Catalytic activity/Vol] 116 U/L 45-117 [facility] Serum or plasma calcium betsy urement (mass/volume)Ordered By: Polly Herr on 04-30-2024 Calcium [Mass/Vol] 10.4 mg/dL High 8.5-10.1 [facility] Serum or plasma creatinine m easurement (mass/volume)Ordered By: Polly Herr on 04-30-2024 Creatinine [Mass/Vol] 1.08 mg/dL High 0.55-1.02 [facility] Comment on above: The validity of the calculated GFR & GFRAA in patients over 70 years has not been determined. Clinical correlation is essential. Serum or plasma urea nitroge n measurement (mass/volume)Ordered By: Polly Herr on 04-30-2024 Urea nitrogen [Mass/Vol] 19 mg/dL High 7-18 [facility] Sodium levelOrdered By: Neto Herr on 04-30-2024 Sodium [Moles/Vol] 137 mmol/L 136-145 [facility] Stress Reporton 04-30-2024 Stress Report [facility] [address] [place] [address] MR#: [id number] Acct: [id number] Name: FELICITAS ALCANTARA Rep #: [id number] : 1950 73 From: Delgado Cruz MD [...] than 70%. This note was generated with mobicanvasation software. It may contain incorrect words, spelling, and punctuation that were not noted in checking the note before signing. 04/30/24 1151 Date Delgado Cruz MD CC: Dr. Polly Lomeli DO; Dr. Nathan Torres DO; Dr. Harish Noel MD; Dr. Sly Blanco DO Date Dictated: 04/30/24 1146 Date Transcribed: 04/30/24 1146 Director Of Sales Marketing: NN Signed Normal [facility] Total proteinOrdered By: Frank Herr on 04-30-2024 Protein [Mass/Vol] 8.4 g/dL High 6.4-8.2 [facility] White blood cell (WBC) count Ordered By: Polly Herr on 04-30-2024 WBC (Bld) [#/Vol] 17.7 10*3/uL High 4.4-11.0 [facility] Comment on above: Performed By: #### L 501.5200, L501.2300, L500.4050, L100.0100 ####[facility] [address] [place], [address] 12 Lead EKGon 04-29-2024 12 Lead EKG [facility] Cardi[facility] Services [address] [place] [address] 12 Lead EKG 04/30/24 0528 MR#: [id number] Acct: [id number] Name: FELICITAS ALCANTARA Rep #: [id number] : 1950 73 From: Delgado Cruz MD Attending Dr: Dr. Nathan Torres DO Status: DIS RUBINA Ordering Dr: Polly Lomeli DO Date: 04/29/24 Location: [facility] Sex: F C Admitted: 04/29/24 Test Reason [...] Confirmed by ANTHONY MCARTHUR, ADELA ([id number]), editor newspaper ALLA LAINEZ ([id number]) on 05/01/2024 1:04:01 PM Referred By: Sly Blanco Confirmed By: ADELA CRUZ MD 05/01/24 6879 Date Delgado Cruz MD CC: Dr. Polly Lomeli DO; Dr. Nathan Torres DO; Dr. Harish Noel MD; Dr. lSy Blanco DO Signed Normal [facility] 12 Lead EKG [facility] Cardi[facility] Services [address] [place] [address] 12 Lead EKG 04/29/24 1556 MR#: [id number] Acct: [id number] Name: FELICITAS ALCANTARA Rep #: [id number] : 1950 73 From: Delgado Cruz MD Attending Dr: Dr. Nathan Trores DO Status: DIS RUBINA Ordering Dr: Sly [...] Confirmed by ANTHONY MCARTHUR, ADELA ([id number]), editor newspaper [employer] LAINEZ ([id number]) on 05/01/2024 1:00:07 PM Referred By: Sly Blanco Confirmed By: ADELA CRUZ MD 05/01/24 1300 Date Delgado Cruz MD CC: Dr. Nathan Torres DO; Dr. Harish Noel MD; Dr. Sly Blanco DO Signed Normal [facility] Arterial patency Wrist arter y --pre arterial punctureOrdered By: Polly Herr on 04-29-2024 Wagner Test Positive [facility] BNP (brain natriuretic pepti de measurement)Ordered By: Sly Blanco on 04-29-2024 Natriuretic peptide B (Bld) [Mass/Vol] 161.4 pg/mL High 0-100 [facility] BNP,B-Type NATRIURETIC PEPTI Yahaira 04-29-2024 Natriuretic peptide B (Bld) [Mass/Vol] 161.4 pg/mL High 0-100 [facility] Comment on above: Performed By: #### L 100.0100, L500.2500, L300.8000, L501.4020 #### [facility] [address] [place], [address] Base excess Calc (BldV) [Mol es/Vol]Ordered By: Polly Herr on 04-29-2024 Blood Gas Base Excess 4 mmol/L High -2-2 [facility] Basic Metabolic Profile (BMP )on 04-29-2024 BUN/CRE 18.2 RATIO Normal 10-20 [facility] Comment on above: Performed By: #### L 100.0100, L500.2500, L300.8000, L501.4020 #### [facility] [address] [place], [address] CA,Total 9.6 mg/dL Normal 8.5-10.1 [facility] Comment on above: Performed By: #### L 100.0100, L500.2500, L300.8000, L501.4020 #### [facility] [address] [place], [address] Chloride [Moles/Vol] 101 mmol/L Normal 98-107 [facility] Comment on above: Performed By: #### L 100.0100, L500.2500, L300.8000, L501.4020 #### [facility] [address] [place], [address] CO2 [Moles/Vol] 26.0 mmol/L Normal 21.0-32.0 [facility] Comment on above: Performed By: #### L 100.0100, L500.2500, L300.8000, L501.4020 #### [facility] [address] [place], [address] Creatinine [Mass/Vol] 0.82 mg/dL Normal 0.55-1.02 [facility] Comment on above: Result Comment: The validity of the calculated GFR GFRAA in patients over 70 years has not been determined. Clinical correlation is essential. Performed By: #### L 100.0100, L500.2500, L300.8000, L501.4020 #### [facility] [address] [place], [address] ECRCL 70.51 ml/min Normal [facility] Comment on above: Performed By: #### L 100.0100, L500.2500, L300.8000, L501.4020 #### [facility] [address] [place], [address] EST GFR - AA 88 mL/min Normal >60 [facility] Comment on above: Result Comment: Afri can Bhutanese GFR Calc Performed By: #### L 100.0100, L500.2500, L300.8000, L501.4020 #### [facility] [address] [place], [address] GAP 9 Normal 5-15 [facility] Comment on above: Performed By: #### L 100.0100, L500.2500, L300.8000, L501.4020 #### [facility] [address] [place], [address] GFR/1.73 sq M.predicted among non-blacks MDRD (S/P/Bld) [Vol rate/Area] 73 mL/min/{1.73_m2} Normal >60 [facility] Comment on above: Result Comment: Non- GFR Calc Performed By: #### L 100.0100, L500.2500, L300.8000, L501.4020 #### [facility] [address] [place], [address] Glucose [Mass/Vol] 148 mg/dL High 74-106 [facility] Comment on above: Result Comment: Fast ing Glucose result greater than or equal to 126 mg/dL suggests DIABETES MELLITUS per A.D.A. criteria. Performed By: #### L 100.0100, L500.2500, L300.8000, L501.4020 #### [facility] [address] [place], [address] Potassium [Moles/Vol] 3.8 mmol/L Normal 3.5-5.1 [facility] Comment on above: Performed By: #### L 100.0100, L500.2500, L300.8000, L501.4020 #### [facility] [address] [place], [address] Sodium [Moles/Vol] 136 mmol/L Normal 136-145 [facility] Comment on above: Performed By: #### L 100.0100, L500.2500, L300.8000, L501.4020 #### [facility] [address] [place], [address] Urea nitrogen [Mass/Vol] 15 mg/dL Normal 7-18 [facility] Comment on above: Performed By: #### L 100.0100, L500.2500, L300.8000, L501.4020 #### [facility] [address] [place], [address] Bilirubin Test strip Ql (U)O rdered By: Sly Blanco on 04-29-2024 Bilirubin Ql (U) Negative Negative [facility] Positive Normal [facility] Comment on above: Performed By: #### L 100.0100, L500.2500, L300.8000, L501.4020 #### [facility] [address] [place], [address] Base excess Calc (Bld) [Moles/Vol] 4 mmol/L High -2 to +2 [facility] Comment on above: Performed By: #### L 100.0100, L500.2500, L300.8000, L501.4020 #### [facility] [address] [place], [address] Blood Gas Type ART [facility] Comment on above: Performed By: #### L 100.0100, L500.2500, L300.8000, L501.4020 #### [facility] [address] [place], [address] CO2 [Moles/Vol] 28 mmol/L Normal [facility] Comment on above: Performed By: #### L 100.0100, L500.2500, L300.8000, L501.4020 #### [facility] [address] [place], [address] HCO3 (Bld) [Moles/Vol] 27.2 mmol/L High 22-26 [facility] Comment on above: Performed By: #### L 100.0100, L500.2500, L300.8000, L501.4020 #### [facility] [address] [place], [address] Mode Not entered [facility] Comment on above: Performed By: #### L 100.0100, L500.2500, L300.8000, L501.4020 #### [facility] [address] [place], [address] O2 Delivery Dev Room Air [facility] Comment on above: Performed By: #### L 100.0100, L500.2500, L300.8000, L501.4020 #### [facility] [address] [place], [address] pCO2 32.8 mmHg Low 35-45 [facility] Comment on above: Performed By: #### L 100.0100, L500.2500, L300.8000, L501.4020 #### [facility] [address] [place], [address] pH (Bld) 7.53 [pH] High 7.35-7.45 [facility] Comment on above: Performed By: #### L 100.0100, L500.2500, L300.8000, L501.4020 #### [facility] [address] [place], [address] PO2 60 mmHG Low 75-100 [facility] Comment on above: Performed By: #### L 100.0100, L500.2500, L300.8000, L501.4020 #### [facility] [address] [place], [address] SITE L Radial Normal [facility] Comment on above: Performed By: #### L 100.0100, L500.2500, L300.8000, L501.4020 #### [facility] [address] [place], [address] SO2 94 Low 95-99 [facility] Comment on above: Performed By: #### L 100.0100, L500.2500, L300.8000, L501.4020 #### [facility] [address] [place], [address] Blood bicarbonate measuremen tOrdered By: Polly Herr on 04-29-2024 Blood Gas Bicarbonate Actual 27.2 mmol/L High 22-26 [facility] CBC W/Diff, Automatedon 04-18 Absolute Lymph 1.79 X10 3/uL Normal 0.83-4.51 [facility] Comment on above: Performed By: #### L 100.0100, L500.2500, L300.8000, L501.4020 #### [facility] [address] [place], [address] Absolute Neut 11.7 X10 3/uL High 2.0-7.7 [facility] Comment on above: Performed By: #### L 100.0100, L500.2500, L300.8000, L501.4020 #### [facility] [address] [place], [address] Basophils/100 WBC (Bld) 0.5 % Normal 0-1 [facility] Comment on above: Performed By: #### L 100.0100, L500.2500, L300.8000, L501.4020 #### [facility] [address] [place], [address] Eosinophils/100 WBC (Bld) 2.3 % Normal 0-5 [facility] Comment on above: Performed By: #### L 100.0100, L500.2500, L300.8000, L501.4020 #### [facility] [address] [place], [address] Erythrocyte distribution width (RBC) [Ratio] 13.2 % Normal 11.6-14.6 [facility] Comment on above: Performed By: #### L 100.0100, L500.2500, L300.8000, L501.4020 #### [facility] [address] [place], [address] Hematocrit (Bld) [Volume fraction] 47.7 % High 37-47 [facility] Comment on above: Performed By: #### L 100.0100, L500.2500, L300.8000, L501.4020 #### [facility] [address] [place], [address] Hemoglobin (Bld) [Mass/Vol] 15.2 g/dL High 12.0-15.0 [facility] Comment on above: Performed By: #### L 100.0100, L500.2500, L300.8000, L501.4020 #### [facility] [address] [place], [address] IG% 0.600 Normal 0.0-0.9 [facility] Comment on above: Result Comment: IG% - Immature Granulocytes (promyelocytes, myelocytes and metamyelocytes) > 1% indicates that a LEFT SHIFT is Present. Performed By: #### L 100.0100, L500.2500, L300.8000, L501.4020 #### [facility] [address] [place], [address] Lymphocytes/100 WBC (Bld) 12.1 % Low 19-41 [facility] Comment on above: Performed By: #### L 100.0100, L500.2500, L300.8000, L501.4020 #### [facility] [address] [place], [address] MCH (RBC) [Entitic mass] 28.5 pg Normal 27.0-32.0 [facility] Comment on above: Performed By: #### L 100.0100, L500.2500, L300.8000, L501.4020 #### [facility] [address] [place], [address] MCHC (RBC) [Mass/Vol] 31.9 g/dL Low 32-36 [facility] Comment on above: Performed By: #### L 100.0100, L500.2500, L300.8000, L501.4020 #### [facility] [address] [place], [address] MCV (RBC) [Entitic vol] 89.5 fL Normal 81-99 [facility] Comment on above: Performed By: #### L 100.0100, L500.2500, L300.8000, L501.4020 #### [facility] [address] [place], [address] Monocytes/100 WBC (Bld) 4.9 % Normal 0-10 [facility] Comment on above: Performed By: #### L 100.0100, L500.2500, L300.8000, L501.4020 #### [facility] [address] [place], [address] Neutrophils/100 WBC (Bld) 79.6 % High 47-70 [facility] Comment on above: Performed By: #### L 100.0100, L500.2500, L300.8000, L501.4020 #### [facility] [address] [place], [address] Nucleated RBC (Bld) [#/Vol] 0 10*3/uL Normal 0-5 [facility] Comment on above: Performed By: #### L 100.0100, L500.2500, L300.8000, L501.4020 #### [facility] [address] [place], [address] Platelet mean volume (Bld) [Entitic vol] 10.7 fL Normal 6.2-12.0 [facility] Comment on above: Performed By: #### L 100.0100, L500.2500, L300.8000, L501.4020 #### [facility] [address] [place], [address] Platelets (Bld) [#/Vol] 291 10*3/uL Normal 150-450 [facility] Comment on above: Performed By: #### L 100.0100, L500.2500, L300.8000, L501.4020 #### [facility] [address] [place], [address] RBC (Bld) [#/Vol] 5.33 10*6/uL Normal 4.2-5.4 [facility] Comment on above: Performed By: #### L 100.0100, L500.2500, L300.8000, L501.4020 #### [facility] [address] [place], [address] RDW SD 43.5 fl Normal 35.1-43.9 [facility] Comment on above: Performed By: #### L 100.0100, L500.2500, L300.8000, L501.4020 #### [facility] [address] [place], [address] WBC (Bld) [#/Vol] 14.8 10*3/uL High 4.4-11.0 [facility] Comment on above: Performed By: #### L 100.0100, L500.2500, L300.8000, L501.4020 #### [facility] [address] [place], [address] Chest 1 View (Portable)on Chest 1 View (Portable) [facility] Imaging Services [address] [place] [address] Chest 1 View (Portable) MR#: [id number] Acct: [id number] Name: FELICITAS ALCANTARA Rep #: [id number] : 1950 F 73 From: Aviva Joyner nd, MD PCP: Dr. Harish Noel MD Status: [facility] ER Study: Chest 1 View (Portable) Date of Exam: 04/29/24 Exam# [id number] Ordering Dr: Sly Blanco DO PROCEDURE: CHEST [...] cardiomegaly. Otherwise unremarkable chest radiograph. Reading Location: [facility] CC: Dr. Harish Noel MD; Dr. Sly Blanco DO Director Of Sales Marketing: Signed Normal [facility] D-Dimer Quantitative (DVT/PE )on 04-29-2024 D-DIMER QUANT < 0.27 Low 0.27-0.49 [facility] Comment on above: Result Comment: NORM AL D-Dimer level (<0.50) indicates no DVT or PE. Performed By: #### L 100.0100, L500.2500, L300.8000, L501.4020 #### [facility] [address] [place], [address] D-dimer measurement for deep venous thrombosisOrdered By: Sly Blanco on 04-29-2024 D-Dimer Quantitative (PE/DVT) < 0.27 FEU/ug/m Low 0.27-0.49 [facility] Comment on above: NORMAL D-Dimer level (<0.50) indicates no DVT or PE. Emergency Department Summary on 04-29-2024 Emergency Department Summary [facility] Medical Records Department [address] [place] [address] Emergency Department Summary 04/29/24 MR#: [id number] Acct: [id number] Name: FELICITAS ALCANTARA Rep #: [id number] : 1950 73 From: Sly Blanco DO PCP: Dr. Harish Noel MD Status:ADM RUBINA Location: [address] History of Present Illness Chief Complaint: Shortness of Breath [facility] Medical History History of left heart catheterization (LHC) ( 09/05/21) Abnormal nuclear stress test Dyspnea on exertion Mass of lip Elevated WBC count History of DVT (deep vein thrombosis) Presence of stent in coronary artery ( 04/10/16) History of non-ST elevation myocardial infarction (NSTEMI) Cardiogenic shock Type 2 diabetes mellitus Atherosclerotic heart disease of [place] coronary artery without angina pectoris Essential hypertension Carpal tunnel syndrome Hyperlipemia Hypertension Hypothyroidism History of pneumonia IBS (irritable bowel syndrome) Diabetes Home Medications ???Medication ???Instructions ???Recorded ???Last Taken ???Type levothyroxine 112 mcg tablet 112 mcg PO DAILY #90 tabs 01/16/24 Unknown Rx ticagrelor 60 mg tablet (Brilinta) 60 mg PO BID 01/16/24 Unknown Hi story blood-glucose sensor ([employer] G7 #1 ea 01/20/24 Unknown Rx Sensor [...] stent, hyperlip (more content not included)... Normal [facility] Epithelial cells.squamous LM Ql (Urine sed)Ordered By: Sly Blanco on 04-29-2024 Epithelial cells.squamous LM.HPF (Urine sed) [#/Area] 0 /[HPF] 5-10 [facility] Glucose Ql (U)Ordered By: Giovanny Blanco on 04-29-2024 Urine Glucose (UA) Normal mg/dl Normal [facility] H AND P Exam - Hospitaliston 04-29-2024 H&P Exam - Hospitalist [facility] Medical Records Department [address] [place] [id number] H P Exam - Hospitalist 04/29/24 193 MR#: [id number] Acct: [id number] Name: FELICITAS ALCANTARA Rep #: [id number] : 1950 73 From: Polly Lomeli DO PCP: Dr. Harish Noel MD Status:ADM RUBINA Location: [place] [address] HPI - General General Date of Admission: [...] (hives), CTS and OA who presents to [facility] ER complaining of chest pain, SOB and [...] expected to be less than 2 midnights. [facility] Medical History History of left heart catheterization (LHC) ( 09/05/21) Abnormal nuclear stress test Dyspnea on exertion Mass of lip Elevated WBC count History of DVT (deep vein thrombosis) Presence of stent in coronary artery ( 04/10/16) History of non-ST elevation myocardial infarction (NSTEMI) Cardiogenic shock Type 2 diabetes mellitus Atherosclerotic heart disease of [place] coronary artery without angina pectoris Essential hypertension [...] of hear (more content not included)... Normal [facility] Hemoglobin A1con 04-29-2024 HbA1c (Bld) [Mass fraction] 9.4 % High 3.8-5.6 [facility] Comment on above: Result Comment: Norm al < 5.7 % Prediabetic 5.7 - 6.4 % Diabetic >or= 6.5 % Please note range changes. Performed By: #### L 100.0100, L500.2500, L300.8000, L501.4020 #### [facility] [address] [place], [address] Hemoglobin A1c percentageOrd ered By: Polly Herr on 04-29-2024 HbA1c (Bld) [Mass fraction] 9.4 % High 3.8-5.6 [facility] Comment on above: Normal < 5.7 % Predi abetic 5.7 - 6.4 % Diabetic >or= 6.5 % Please note range changes. High density lipoprotein (HD L) measurementOrdered By: Polly Herr on 04-29-2024 Cholesterol in HDL [Mass/Vol] 64 mg/dL >40 [facility] Comment on above: The drugs N-Acetylcy steine and Metamizole may falsely depress this assay. Reference Range HDL <40 mg/dL Low HDL Cholesterol HDL >or= 60 mg/dL High HDL Cholesterol Influenza virus A and B and SARS-CoV-2 (COVID-19) and Respiratory syncytial virus RNAOrdered By: Sly Blanco on 04-29-2024 SARS-CoV-2 (COVID-19) RNA SLOAN+probe Ql (Unsp spec) [facility] Ketones Test strip Ql (U)Ord ered By: Sly Blanco on 04-29-2024 Ketones Ql (U) Negative Negative [facility] L501.4020on 04-29-2024 TROPONIN-I HS 17 pg/mL Normal 3.0-54.0 [facility] Comment on above: Order Comment: 'TROP ' Serial specimen #1, #2 or #3: 3 Result Comment: Carlton rice Note: New Test Units and Gender Specific Reference Ranges. For more information see Policy Stat Procedure [place] High Sensitivity Troponin (TNIH) and attachments. Performed By: #### L 501.4020 ####[facility] [address] [place], [address] TROPONIN-I HS 14 pg/mL Normal 3.0-54.0 [facility] Comment on above: Result Comment: Plea se Note: New Test Units and Gender Specific Reference Ranges. For more information see Policy Stat Procedure [place] High Sensitivity Troponin (TNIH) and attachments. Performed By: #### L 100.0100, L500.2500, L300.8000, L501.4020 #### [facility] [address] [place], [address] L501.5425on 04-29-2024 TROPONIN-I HS 12 pg/mL Normal 3.0-54.0 [facility] Comment on above: Order Comment: 'TROP ' Serial specimen #1, #2 or #3: 1 Result Comment: Plea se Note: New Test Units and Gender Specific Reference Ranges. For more information see Policy Stat Procedure [place] High Sensitivity Troponin (TNIH) and attachments. Performed By: #### L 100.0100, L500.2500, L300.8000, L501.4020 #### [facility] [address] [place], [address] Lipid Profileon 04-29-2024 Cholesterol [Mass/Vol] 197 mg/dL Normal 200 [facility] Comment on above: Result Comment: <200 mg/dL Desirable 200-240 mg/dL Borderline >240 mg/dL High Risk Performed By: #### L 100.0100, L500.2500, L300.8000, L501.4020 #### [facility] [address] [place], [address] Cholesterol in HDL [Mass/Vol] 64 mg/dL Normal [facility] Comment on above: Result Comment: The drugs N-Acetylcysteine and Metamizole may falsely depress this assay. Reference Range HDL <40 mg/dL Low HDL Cholesterol HDL >or= 60 mg/dL High HDL Cholesterol Performed By: #### L 100.0100, L500.2500, L300.8000, L501.4020 #### [facility] [address] [place], [address] Cholesterol in LDL [Mass/Vol] 102 mg/dL Normal 0-130 [facility] Comment on above: Performed By: #### L 100.0100, L500.2500, L300.8000, L501.4020 #### [facility] [address] [place], [address] Cholesterol in VLDL [Mass/Vol] 31 mg/dL Normal 5-40 [facility] Comment on above: Performed By: #### L 100.0100, L500.2500, L300.8000, L501.4020 #### [facility] [address] [place], [address] Triglyceride [Mass/Vol] 155 mg/dL Normal [facility] Comment on above: Result Comment: The drugs N-Acetylcysteine and Metamizole may falsely depress this assay. Serum Triglycerides Reference Interval Normal <150 mg/dL Borderline high 150 - 199 mg/dL High 200 - 499 mg/dL Very High > or = 500 mg/dL Performed By: #### L 100.0100, L500.2500, L300.8000, L501.4020 #### [facility] [address] [place], [address] Low density lipoprotein (LDL ) cholesterol measurementOrdered By: Polly Herr on 04-29-2024 Cholesterol in LDL [Mass/Vol] 102 mg/dL 0-130 [facility] M100.678on 04-29-2024 M100.678 SARS-CoV-2 (COVID 19 ) Negative INFLUENZA A Negative INFLUENZA B Negative RSV PCR Negative Normal [facility] Comment on above: Performed By: #### M 100.678 ####[facility] [address] [place], [address] Microscopic analysis of urin e for red blood cells (RBC)Ordered By: Sly Blanco on 04-29-2024 Urine RBC 0-5 SEEN /hpf 0-5 [facility] Mucus LM Ql (Urine sed)Order ed By: Sly Blanco on 04-29-2024 Mucus Ql (Urine sed) 0 SEEN /hpf [facility] Nitrite Test strip Ql (U)Ord ered By: Sly Blanco on 04-29-2024 Nitrite Ql (U) Negative Negative [facility] No Panel InformationOrdered By: Polly Herr on 04-29-2024 Blood Gas Sample Site L Radial [facility] Blood Gas Specimen Type ART [facility] Blood Gas Vent Mode Not entered [facility] Oxygen Delivery Device Room Air [facility] Oxygen saturation measuremen tOrdered By: Polly Herr on 04-29-2024 Blood Gas Oxygen Saturation 94 % Low 95-99 [facility] Partial pressure of carbon d ioxide measurementOrdered By: Polly Herr on 04-29-2024 Arterial Blood Partial Pressure CO2 32.8 mmHg Low 35-45 [facility] Partial pressure of oxygen m easurementOrdered By: Polly Herr on 04-29-2024 Arterial Blood Partial Pressure O2 60 mmHG Low 75-100 [facility] Protein Test strip Ql (U)Ord ered By: Sly Blanco on 04-29-2024 Protein Ql (U) Negative Negative [facility] Serum or plasma cholesterol measurement (mass/volume)Ordered By: Polly Herr on 04-29-2024 Cholesterol [Mass/Vol] 197 mg/dL <200 [facility] Comment on above: <200 mg/dL Desirable 200-240 mg/dL Borderline >240 mg/dL High Risk TSH QnOrdered By: Polly vasquez on 04-29-2024 Thyroid Stimulating Hormone (TSH) 3.480 uIU/mL 0.358-3.740 [facility] Thyroid Stim Hormone (TSH)on 04-29-2024 TSH 3.480 uIU/mL Normal 0.358-3.740 [facility] Comment on above: Performed By: #### L 100.0100, L500.2500, L300.8000, L501.4020 #### [facility] [address] [place], [place], [id number] Total carbon dioxide measure mentOrdered By: Polly Herr on 04-29-2024 Blood Gas Total CO2 28 mmol/L [facility] Triglycerides measurementOrd ered By: Polly Herr on 04-29-2024 Triglyceride [Mass/Vol] 155 mg/dL <199 [facility] Comment on above: The drugs N-Acetylcy steine and Metamizole may falsely depress this assay.Serum Triglycerides Reference Interval Normal <150 mg/dL Borderline high 150 - 199 mg/dL High 200 - 499 mg/dL Very High > or = 500 mg/dL Troponin IOrdered By: Polly Herr on 04-29-2024 Troponin I High Sensitivity 17 pg/mL 3.0-54.0 [facility] Comment on above: Please Note: [place] t Units and Gender Specific Reference Ranges. For more information see Policy Stat Procedure [place] High Sensitivity Troponin (TNIH) and attachments. Urinalysis, Completeon 04-29 EPI,SQUAMOUS 0-5 SEEN Normal 5-10 [facility] Comment on above: Order Comment: MAURISIO CTOR TO SPECIFY Performed By: #### L 400.0001 ####[facility] [address] [place], [address] RBC 0-5 SEEN Normal 0-5 [facility] Comment on above: Order Comment: MAURISIO CTOR TO SPECIFY Performed By: #### L 400.0001 ####[facility] [address] [place], [address] WBC 0-5 SEEN Normal 0-5 [facility] Comment on above: Order Comment: MAURISIO CTOR TO SPECIFY Performed By: #### L 400.0001 ####[facility] [address] [place], [address] BACTERIA Normal None Seen [facility] Comment on above: Order Comment: CLEAN CATCH Result Comment: Marina elled via OM: Duplicate Order Performed By: #### L 100.0100, L500.2500, L300.8000, L501.4020 #### [facility] [address] [place], [address] BILIRUBIN URINE Normal Negative [facility] Comment on above: Order Comment: CLEAN CATCH Result Comment: Canc elled via OM: Duplicate Order Performed By: #### L 100.0100, L500.2500, L300.8000, L501.4020 #### [facility] [address] [place], [address] Clarity (U) Normal Clear [facility] Comment on above: Order Comment: CLEAN CATCH Result Comment: Canc elled via OM: Duplicate Order Performed By: #### L 100.0100, L500.2500, L300.8000, L501.4020 #### [facility] [address] [place], [address] Color (U) Normal Yellow [facility] Comment on above: Order Comment: CLEAN CATCH Result Comment: Canc elled via OM: Duplicate Order Performed By: #### L 100.0100, L500.2500, L300.8000, L501.4020 #### [facility] [address] [place], [address] EPI,SQUAMOUS Normal 5-10 [facility] Comment on above: Order Comment: CLEAN CATCH Result Comment: Canc elled via OM: Duplicate Order Performed By: #### L 100.0100, L500.2500, L300.8000, L501.4020 #### [facility] [address] [place], [address] GLUCOSE, UR Normal Normal [facility] Comment on above: Order Comment: CLEAN CATCH Result Comment: Canc elled via OM: Duplicate Order Performed By: #### L 100.0100, L500.2500, L300.8000, L501.4020 #### [facility] [address] [place], [address] KETONE UR Normal Negative [facility] Comment on above: Order Comment: CLEAN CATCH Result Comment: Canc elled via OM: Duplicate Order Performed By: #### L 100.0100, L500.2500, L300.8000, L501.4020 #### [facility] [address] [place], [address] LEUK ESTERASE Normal Negative [facility] Comment on above: Order Comment: CLEAN CATCH Result Comment: Canc elled via OM: Duplicate Order Performed By: #### L 100.0100, L500.2500, L300.8000, L501.4020 #### [facility] [address] [place], [address] Mucus Ql (Urine sed) Normal [facility] Comment on above: Order Comment: CLEAN CATCH Result Comment: Canc elled via OM: Duplicate Order Performed By: #### L 100.0100, L500.2500, L300.8000, L501.4020 #### [facility] [address] [place], [address] Nitrite Ql (U) Normal Negative [facility] Comment on above: Order Comment: CLEAN CATCH Result Comment: Canc elled via OM: Duplicate Order Performed By: #### L 100.0100, L500.2500, L300.8000, L501.4020 #### [facility] [address] [place], [address] OCCULT BLOOD-UR Normal Negative [facility] Comment on above: Order Comment: CLEAN CATCH Result Comment: Canc elled via OM: Duplicate Order Performed By: #### L 100.0100, L500.2500, L300.8000, L501.4020 #### [facility] [address] [place], [address] pH UR Normal 5.0 - 8.0 [facility] Comment on above: Order Comment: CLEAN CATCH Result Comment: Canc elled via OM: Duplicate Order Performed By: #### L 100.0100, L500.2500, L300.8000, L501.4020 #### [facility] [address] [place], [address] PROT DIPSTX Normal Negative [facility] Comment on above: Order Comment: CLEAN CATCH Result Comment: Canc elled via OM: Duplicate Order Performed By: #### L 100.0100, L500.2500, L300.8000, L501.4020 #### [facility] [address] [place], [address] RBC Normal 0-5 [facility] Comment on above: Order Comment: CLEAN CATCH Result Comment: Canc elled via OM: Duplicate Order Performed By: #### L 100.0100, L500.2500, L300.8000, L501.4020 #### [facility] [address] [place], [address] SP.GR. DIPSTX Normal 1.002-1.030 [facility] Comment on above: Order Comment: CLEAN CATCH Result Comment: Canc elled via OM: Duplicate Order Performed By: #### L 100.0100, L500.2500, L300.8000, L501.4020 #### [facility] [address] [place], [address] UR Preservative Normal [facility] Comment on above: Order Comment: CLEAN CATCH Result Comment: Canc elled via OM: Duplicate Order Performed By: #### L 100.0100, L500.2500, L300.8000, L501.4020 #### [facility] [address] [place], [address] UROBILI Normal Normal [facility] Comment on above: Order Comment: CLEAN CATCH Result Comment: Canc elled via OM: Duplicate Order Performed By: #### L 100.0100, L500.2500, L300.8000, L501.4020 #### [facility] [address] [place], [address] WBC Normal 0-5 [facility] Comment on above: Order Comment: CLEAN CATCH Result Comment: Canc elled via OM: Duplicate Order Performed By: #### L 100.0100, L500.2500, L300.8000, L501.4020 #### [facility] [address] [place], [address] BACTERIA 0 SEEN Normal None Seen [facility] Comment on above: Order Comment: MAURISIO CTOR TO SPECIFY Performed By: #### L 400.0001 ####[facility] [address] [place], [address] Mucus Ql (Urine sed) 0 SEEN Normal [facility] Comment on above: Order Comment: COLLE CTOR TO SPECIFY Performed By: #### L 400.0001 ####[facility] [address] [place], [address] Urine Drug Screen (VISTA)on 04-29-2024 AMPHETAMINES Normal <1000 ng/mL [facility] Comment on above: Result Comment: PT.D ISCHARGED, COULD NOT FIND A PLAIN YELLOW TOP/STERILE CUP URINE Performed By: #### L 100.0100, L500.2500, L300.8000, L501.4020 #### [facility] [address] [place], [address] BARBITIURATES Normal < 200 ng/mL [facility] Comment on above: Result Comment: PT.D ISCHARGED, COULD NOT FIND A PLAIN YELLOW TOP/STERILE CUP URINE Performed By: #### L 100.0100, L500.2500, L300.8000, L501.4020 #### [facility] [address] [place], [address] BENZODIAZIPINE Normal < 200 ng/mL [facility] Comment on above: Result Comment: PT.D ISCHARGED, COULD NOT FIND A PLAIN YELLOW TOP/STERILE CUP URINE Performed By: #### L 100.0100, L500.2500, L300.8000, L501.4020 #### [facility] [address] [place], [address] COCAINE Normal < 300 ng/mL [facility] Comment on above: Result Comment: PT.D ISCHARGED, COULD NOT FIND A PLAIN YELLOW TOP/STERILE CUP URINE Performed By: #### L 100.0100, L500.2500, L300.8000, L501.4020 #### [facility] [address] [place], [address] DRUG CONFIRM Normal [facility] Comment on above: Result Comment: PT.D ISCHARGED, COULD NOT FIND A PLAIN YELLOW TOP/STERILE CUP URINE Performed By: #### L 100.0100, L500.2500, L300.8000, L501.4020 #### [facility] [address] [place] [address] ECSTACY Normal < 500 ng/mL [facility] Comment on above: Result Comment: PT.D ISCHARGED, COULD NOT FIND A PLAIN YELLOW TOP/STERILE CUP URINE Performed By: #### L 100.0100, L500.2500, L300.8000, L501.4020 #### [facility] [address] [place] [address] METHADONE Normal < 300 ng/mL [facility] Comment on above: Result Comment: PT.D ISCHARGED, COULD NOT FIND A PLAIN YELLOW TOP/STERILE CUP URINE Performed By: #### L 100.0100, L500.2500, L300.8000, L501.4020 #### [facility] [address] [facility] [address] OPIATES Normal < 300 ng/mL [facility] Comment on above: Result Comment: PT.D ISCHARGED, COULD NOT FIND A PLAIN YELLOW TOP/STERILE CUP URINE Performed By: #### L 100.0100, L500.2500, L300.8000, L501.4020 #### [facility] [address] [place] [address] PCP Normal < 25 ng/mL [facility] Comment on above: Result Comment: PT.D ISCHARGED, COULD NOT FIND A PLAIN YELLOW TOP/STERILE CUP URINE Performed By: #### L 100.0100, L500.2500, L300.8000, L501.4020 #### [facility] [address] [place], [address] THC Normal < 50 ng/mL [facility] Comment on above: Result Comment: PT.D ISCHARGED, COULD NOT FIND A PLAIN YELLOW TOP/STERILE CUP URINE Performed By: #### L 100.0100, L500.2500, L300.8000, L501.4020 #### [facility] [address] [place], [address] VISTA UDS PH Normal [facility] Comment on above: Result Comment: PT.D ISCHARGED, COULD NOT FIND A PLAIN YELLOW TOP/STERILE CUP URINE Performed By: #### L 100.0100, L500.2500, L300.8000, L501.4020 #### [facility] [address] [place], [address] Urine blood detectionOrdered By: Sly Blanco on 04-29-2024 Urine Occult Blood 10 /ul High Negative [facility] Urine clarityOrdered By: Kinjal Blanco on 04-29-2024 Clarity (U) Clear Clear [facility] Urine color determinationOrd ered By: Sly Blanco on 04-29-2024 Color (U) Straw Yellow [facility] Urine leukocyte esterase det ection by dipstickOrdered By: Sly Blanco on 04-29-2024 Leukocyte esterase Test strip Ql (U) 25 /ul High Negative [facility] Urine pHOrdered By: Sly sandra on 04-29-2024 pH (U) 8.0 [pH] 5.0 - 8.0 [facility] Urine sediment bacteria coun t by microscopy (number/high power field)Ordered By: Sly Blanco on 04-29-2024 Bacteria LM.HPF (Urine sed) [#/Area] 0 /[HPF] None Seen [facility] Urine specific gravity measu rementOrdered By: Sly Blanco on 04-29-2024 Specific gravity (U) [Rel density] 1.010 1.002-1.030 [facility] Urobilinogen Ql (U)Ordered B y: Sly Blanco on 04-29-2024 Urine Urobilinogen Normal mg/dl Normal [facility] Very low density lipoprotein (VLDL) cholesterol measurementOrdered By: Polly Herr on 04-29-2024 VLDL Cholesterol 31 mg/dL 5-40 [facility] White blood cell countOrdere d By: Sly Blanco on 04-29-2024 Urine WBC 0-5 SEEN /hpf 0-5 [facility] pH (Unsp spec)Ordered By: Mane Herr on 04-29-2024 Blood Gas pH 7.53 High 7.35-7.45 [facility] CBC W/Diff, Automatedon 11-0 -2023 Absolute Lymph 2.42 X10 3/uL Normal 0.83-4.51 [facility] Comment on above: Performed By: #### L 400.0001 #### [facility] [address] [place], [address] Absolute Neut 9.2 X10 3/uL High 2.0-7.7 [facility] Comment on above: Performed By: #### L 400.0001 #### [facility] [address] [place], [address] Basophils/100 WBC (Bld) 0.3 % Normal 0-1 [facility] Comment on above: Performed By: #### L 400.0001 #### [facility] [address] [place], [address] Eosinophils/100 WBC (Bld) 2.0 % Normal 0-5 [facility] Comment on above: Performed By: #### L 400.0001 #### [facility] [address] [place], [address] Erythrocyte distribution width (RBC) [Ratio] 13.1 % Normal 11.6-14.6 [facility] Comment on above: Performed By: #### L 400.0001 #### [facility] [address] [place], [address] Hematocrit (Bld) [Volume fraction] 44.4 % Normal 37-47 [facility] Comment on above: Performed By: #### L 400.0001 #### [facility] [address] [place], [address] Hemoglobin (Bld) [Mass/Vol] 14.1 g/dL Normal 12.0-15.0 [facility] Comment on above: Performed By: #### L 400.0001 #### [facility] [address] [place], [address] IG% 0.600 Normal 0.0-0.9 [facility] Comment on above: Result Comment: IG% - Immature Granulocytes (promyelocytes, myelocytes and metamyelocytes) > 1% indicates that a LEFT SHIFT is Present. Performed By: #### L 400.0001 #### [facility] [address] [place], [address] Lymphocytes/100 WBC (Bld) 18.9 % Low 19-41 [facility] Comment on above: Performed By: #### L 400.0001 #### [facility] [address] [place], [address] MCH (RBC) [Entitic mass] 29.4 pg Normal 27.0-32.0 [facility] Comment on above: Performed By: #### L 400.0001 #### [facility] [address] [place], [address] MCHC (RBC) [Mass/Vol] 31.8 g/dL Low 32-36 [facility] Comment on above: Performed By: #### L 400.0001 #### [facility] [address] [place], [address] MCV (RBC) [Entitic vol] 92.5 fL Normal 81-99 [facility] Comment on above: Performed By: #### L 400.0001 #### [facility] [address] [place], [address] Monocytes/100 WBC (Bld) 6.7 % Normal 0-10 [facility] Comment on above: Performed By: #### L 400.0001 #### [facility] [address] [place], [address] Neutrophils/100 WBC (Bld) 71.5 % High 47-70 [facility] Comment on above: Performed By: #### L 400.0001 #### [facility] [address] [place], [address] Nucleated RBC (Bld) [#/Vol] 0 10*3/uL Normal 0-5 [facility] Comment on above: Performed By: #### L 400.0001 #### [facility] [address] [place], [address] Platelet mean volume (Bld) [Entitic vol] 10.8 fL Normal 6.2-12.0 [facility] Comment on above: Performed By: #### L 400.0001 #### [facility] [address] [place], [address] Platelets (Bld) [#/Vol] 305 10*3/uL Normal 150-450 [facility] Comment on above: Performed By: #### L 400.0001 #### [facility] [address] [place], [address] RBC (Bld) [#/Vol] 4.80 10*6/uL Normal 4.2-5.4 [facility] Comment on above: Performed By: #### L 400.0001 #### [facility] [address] [place], [address] RDW SD 44.4 fl High 35.1-43.9 [facility] Comment on above: Performed By: #### L 400.0001 #### [facility] [address] [place], [address] WBC (Bld) [#/Vol] 12.8 10*3/uL High 4.4-11.0 [facility] Comment on above: Performed By: #### L 400.0001 #### [facility] [address] [place], [address] Comprehensive Metabolic Prof ilon 01-17-2024 Albumin [Mass/Vol] 3.3 g/dL Normal 3.2-5.0 [facility] Comment on above: Performed By: #### L 400.0001 #### [facility] [address] [place], [address] Albumin/Globulin [Mass ratio] 0.8 {ratio} Low 0.9-2.4 [facility] Comment on above: Performed By: #### L 400.0001 #### [facility] [address] [place], [address] ALK P 110 U/L Normal 45-117 [facility] Comment on above: Performed By: #### L 400.0001 #### [facility] [address] [place], [address] ALT [Catalytic activity/Vol] 20 U/L Normal 13-56 [facility] Comment on above: Performed By: #### L 400.0001 #### [facility] [address] [place], [address] AST [Catalytic activity/Vol] 12 U/L Low 15-37 [facility] Comment on above: Performed By: #### L 400.0001 #### [facility] [address] [place], [address] Bilirubin [Mass/Vol] 0.70 mg/dL Normal 0.20-1.00 [facility] Comment on above: Result Comment: For patients on eltrombopag therapy, use of Dimension [place] TBIL is not recommended. Performed By: #### L 400.0001 #### [facility] [address] [place], [address] BUN/CRE 20.4 RATIO High 10-20 [facility] Comment on above: Performed By: #### L 400.0001 #### [facility] [address] [place], [address] CA,Total 9.1 mg/dL Normal 8.5-10.1 [facility] Comment on above: Performed By: #### L 400.0001 #### [facility] [address] [place], [address] Chloride [Moles/Vol] 102 mmol/L Normal 98-107 [facility] Comment on above: Performed By: #### L 400.0001 #### [facility] [address] [place], [address] CO2 [Moles/Vol] 26.0 mmol/L Normal 21.0-32.0 [facility] Comment on above: Performed By: #### L 400.0001 #### [facility] [address] [place], [address] Creatinine [Mass/Vol] 0.88 mg/dL Normal 0.55-1.02 [facility] Comment on above: Result Comment: The validity of the calculated GFR GFRAA in patients over 70 years has not been determined. Clinical correlation is essential. Performed By: #### L 400.0001 #### [facility] [address] [place], [address] EST GFR - AA 81 mL/min Normal >60 [facility] Comment on above: Result Comment: Afri can Bhut[place] GFR Calc Performed By: #### L 400.0001 #### [facility] [address] [place], [address] GAP 8 Normal 5-15 [facility] Comment on above: Performed By: #### L 400.0001 #### [facility] [address] [place], [address] GFR/1.73 sq M.predicted among non-blacks MDRD (S/P/Bld) [Vol rate/Area] 67 mL/min/{1.73_m2} Normal >60 [facility] Comment on above: Result Comment: Non- GFR Calc Performed By: #### L 400.0001 #### [facility] [address] [place], [address] Globulin (S) [Mass/Vol] 4.0 g/dL Normal 2.2-4.2 [facility] Comment on above: Performed By: #### L 400.0001 #### [facility] [address] [place], [address] Glucose [Mass/Vol] 277 mg/dL High 74-106 [facility] Comment on above: Result Comment: Gluc ose result greater than or equal to 200 mg/dL suggests DIABETES MELLITUS per A.D.A. criteria. Performed By: #### L 400.0001 #### [facility] [address] [place], [address] Potassium [Moles/Vol] 4.4 mmol/L Normal 3.5-5.1 [facility] Comment on above: Performed By: #### L 400.0001 #### [facility] [address] [place], [address] Sodium [Moles/Vol] 136 mmol/L Normal 136-145 [facility] Comment on above: Performed By: #### L 400.0001 #### [facility] [address] [place], [address] T PROT 7.3 g/dL Normal 6.4-8.2 [facility] Comment on above: Performed By: #### L 400.0001 #### [facility] [address] [place], [address] Urea nitrogen [Mass/Vol] 18 mg/dL Normal 7-18 [facility] Comment on above: Performed By: #### L 400.0001 #### [facility] [address] [place], [address] Free T3on 01-17-2024 Free T3 [Mass/Vol] 2.4 pg/mL Normal 2.18-3.98 [facility] Comment on above: Performed By: #### L 400.0001 #### [facility] [address] [place], [address] Hemoglobin A1con 01-17-2024 HbA1c (Bld) [Mass fraction] 10.8 % High 3.8-5.6 [facility] Comment on above: Result Comment: Norm al < 5.7 % Prediabetic 5.7 - 6.4 % Diabetic >or= 6.5 % Please note range changes. Performed By: #### L 400.0001 #### [facility] [address] [place], [address] Lipid Profileon 01-17-2024 Cholesterol [Mass/Vol] 143 mg/dL Normal 200 [facility] Comment on above: Result Comment: <200 mg/dL Desirable 200-240 mg/dL Borderline >240 mg/dL High Risk Performed By: #### L 400.0001 #### [facility] [address] [place], [address] Cholesterol in HDL [Mass/Vol] 54 mg/dL Normal [facility] Comment on above: Result Comment: The drugs N-Acetylcysteine and Metamizole may falsely depress this assay. Reference Range HDL <40 mg/dL Low HDL Cholesterol HDL >or= 60 mg/dL High HDL Cholesterol Performed By: #### L 400.0001 #### [facility] [address] [place], [address] Cholesterol in LDL [Mass/Vol] 53 mg/dL Normal 0-130 [facility] Comment on above: Performed By: #### L 400.0001 #### [facility] [address] [place], [address] Cholesterol in VLDL [Mass/Vol] 36 mg/dL Normal 5-40 [facility] Comment on above: Performed By: #### L 400.0001 #### [facility] [address] [place], [address] Triglyceride [Mass/Vol] 182 mg/dL Normal [facility] Comment on above: Result Comment: The drugs N-Acetylcysteine and Metamizole may falsely depress this assay. Serum Triglycerides Reference Interval Normal <150 mg/dL Borderline high 150 - 199 mg/dL High 200 - 499 mg/dL Very High > or = 500 mg/dL Performed By: #### L 400.0001 #### [facility] [address] [place], [address] Magnesiumon 01-17-2024 Magnesium [Mass/Vol] 2.1 mg/dL Normal 1.6-2.6 [facility] Comment on above: Performed By: #### L 400.0001 #### [facility] [address] [place], [address] T4 Free Directon 01-17-2024 T4 FREE DIRECT 1.16 ng/dL Normal 0.76-1.46 [facility] Comment on above: Performed By: #### L 400.0001 #### [facility] [address] [place], [address] Thyroid Stim Hormone (TSH)on 01-17-2024 TSH 3.800 uIU/mL High 0.358-3.740 [facility] Comment on above: Performed By: #### L 400.0001 #### [facility] [address] [place], [address] Vitamin D,25 Hydroxyon 01-16 Vitamin D 25-OH 10.2 ng/mL Normal [facility] Comment on above: Result Comment: Lucy min D 25(OH) Status Range Deficiency <20 ng/mL (50nmol/L) Insufficiency 20 - 30 ng/mL (50 - 75 nmol/L) Sufficiency 30 - 100 ng/mL (75 - 250 nmol/L) Toxicity >100 ng/mL (>250 nmol/L) Performed By: #### L 400.0001 #### [facility] [address] [place], [place], [address] MR/BMS.IMBon 01-16-2024 MR/BMS.IMB [facility] [address] [place], [place] [address] OFFICE VISIT Date of Service: 01/16/24 MR#: [id number] Acct: [id number] Name: FELICITAS ALCANTARA Rep #: [id number] : 1950 Provider: Dr. 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 Normal [facility] 12 Lead EKGon 01-15-2024 12 Lead EKG [facility] Services [address] [place] [address] 12 Lead EKG 01/15/24 0930 MR#: [id number] Acct: [id number] Name: FELICITAS ALCANTARA Rep #: [id number] : 1950 73 From: Cecilio Feliz MD [...] Confirmed by CECILIO FELIZ MD ([id number]), editor newspaper ALLA LAINEZ ([id number]) on 01/17/2024 8:14:37 AM Referred By: JESUS/SIMONE Confirmed By: CECILIO FELIZ MD 11/01/813 Cecilio Feliz MD CC: Dr. Nathan Pritchard, DO; Dr. Harish Noel MD Signed Normal [facility] Basic Metabolic Profile (BMP )on 01-15-2024 BUN/CRE 18.8 RATIO Normal 01-04 [facility] Comment on above: Order Comment: 1Y Performed By: #### L 100.0100, L500.2500, L300.8000, L501.4020 #### [facility] [address] [place], [address] CA,Total 9.7 mg/dL Normal 8.5-10.1 [facility] Comment on above: Order Comment: 1Y Performed By: #### L 100.0100, L500.2500, L300.8000, L501.4020 #### [facility] [address] [place], [address] Chloride [Moles/Vol] 101 mmol/L Normal 98-107 [facility] Comment on above: Order Comment: 1Y Performed By: #### L 100.0100, L500.2500, L300.8000, L501.4020 #### [facility] [address] [place], [address] CO2 [Moles/Vol] 28.0 mmol/L Normal 21.0-32.0 [facility] Comment on above: Order Comment: 1Y Performed By: #### L 100.0100, L500.2500, L300.8000, L501.4020 #### [facility] [address] [place], [address] Creatinine [Mass/Vol] 0.91 mg/dL Normal 0.55-1.02 [facility] Comment on above: Order Comment: 1Y Result Comment: The validity of the calculated GFR GFRAA in patients over 70 years has not been determined. Clinical correlation is essential. Performed By: #### L 100.0100, L500.2500, L300.8000, L501.4020 #### [facility] [address] [place], [address] ECRCL 63.57 ml/min Normal [facility] Comment on above: Order Comment: 1Y Performed By: #### L 100.0100, L500.2500, L300.8000, L501.4020 #### [facility] [address] [place], [address] EST GFR - AA 79 mL/min Normal >60 [facility] Comment on above: Order Comment: 1Y Result Comment: Afri can Bhutanese GFR Calc Performed By: #### L 100.0100, L500.2500, L300.8000, L501.4020 #### [facility] [address] [place], [address] GAP 7 Normal 5-15 [facility] Comment on above: Order Comment: 1Y Performed By: #### L 100.0100, L500.2500, L300.8000, L501.4020 #### [facility] [address] [place], [address] GFR/1.73 sq M.predicted among non-blacks MDRD (S/P/Bld) [Vol rate/Area] 65 mL/min/{1.73_m2} Normal >60 [facility] Comment on above: Order Comment: 1Y Result Comment: Non- GFR Calc Performed By: #### L 100.0100, L500.2500, L300.8000, L501.4020 #### [facility] [address] [place], [address] Glucose [Mass/Vol] 231 mg/dL High 74-106 [facility] Comment on above: Order Comment: 1Y Result Comment: Gluc ose result greater than or equal to 200 mg/dL suggests DIABETES MELLITUS per A.D.A. criteria. Performed By: #### L 100.0100, L500.2500, L300.8000, L501.4020 #### [facility] [address] [place], [address] Potassium [Moles/Vol] 4.3 mmol/L Normal 3.5-5.1 [facility] Comment on above: Order Comment: 1Y Performed By: #### L 100.0100, L500.2500, L300.8000, L501.4020 #### [facility] [address] [place], [address] Sodium [Moles/Vol] 136 mmol/L Normal 136-145 [facility] Comment on above: Order Comment: 1Y Performed By: #### L 100.0100, L500.2500, L300.8000, L501.4020 #### [facility] [address] [place], [address] Urea nitrogen [Mass/Vol] 17 mg/dL Normal 7-18 [facility] Comment on above: Order Comment: 1Y Performed By: #### L 100.0100, L500.2500, L300.8000, L501.4020 #### [facility] [address] [place], [address] CBC W/Diff, Automatedon 10-3 0-2024 Absolute Lymph 2.13 X10 3/uL Normal 0.83-4.51 [facility] Comment on above: Performed By: #### L 100.0100, L500.2500, L300.8000, L501.4020 #### [facility] [address] [place], [address] Absolute Neut 10.5 X10 3/uL High 2.0-7.7 [facility] Comment on above: Performed By: #### L 100.0100, L500.2500, L300.8000, L501.4020 #### [facility] [address] [place], [address] Basophils/100 WBC (Bld) 0.7 % Normal 0-1 [facility] Comment on above: Performed By: #### L 100.0100, L500.2500, L300.8000, L501.4020 #### [facility] [address] [place], [address] Eosinophils/100 WBC (Bld) 1.7 % Normal 0-5 [facility] Comment on above: Performed By: #### L 100.0100, L500.2500, L300.8000, L501.4020 #### [facility] [address] [place], [address] Erythrocyte distribution width (RBC) [Ratio] 13.0 % Normal 11.6-14.6 [facility] Comment on above: Performed By: #### L 100.0100, L500.2500, L300.8000, L501.4020 #### [facility] [address] [place], [address] Hematocrit (Bld) [Volume fraction] 45.9 % Normal 37-47 [facility] Comment on above: Performed By: #### L 100.0100, L500.2500, L300.8000, L501.4020 #### [facility] [address] [place], [address] Hemoglobin (Bld) [Mass/Vol] 15.2 g/dL High 12.0-15.0 [facility] Comment on above: Performed By: #### L 100.0100, L500.2500, L300.8000, L501.4020 #### [facility] [address] [place], [address] IG% 1.100 High 0.0-0.9 [facility] Comment on above: Result Comment: IG% - Immature Granulocytes (promyelocytes, myelocytes and metamyelocytes) > 1% indicates that a LEFT SHIFT is Present. Performed By: #### L 100.0100, L500.2500, L300.8000, L501.4020 #### [facility] [address] [place], [address] Lymphocytes/100 WBC (Bld) 15.1 % Low 19-41 [facility] Comment on above: Performed By: #### L 100.0100, L500.2500, L300.8000, L501.4020 #### [facility] [address] [place], [address] MCH (RBC) [Entitic mass] 29.9 pg Normal 27.0-32.0 [facility] Comment on above: Performed By: #### L 100.0100, L500.2500, L300.8000, L501.4020 #### [facility] [address] [place], [address] MCHC (RBC) [Mass/Vol] 33.1 g/dL Normal 32-36 [facility] Comment on above: Performed By: #### L 100.0100, L500.2500, L300.8000, L501.4020 #### [facility] [address] [place], [address] MCV (RBC) [Entitic vol] 90.2 fL Normal 81-99 [facility] Comment on above: Performed By: #### L 100.0100, L500.2500, L300.8000, L501.4020 #### [facility] [address] [place], [address] Monocytes/100 WBC (Bld) 6.7 % Normal 0-10 [facility] Comment on above: Performed By: #### L 100.0100, L500.2500, L300.8000, L501.4020 #### [facility] [address] [place], [address] Neutrophils/100 WBC (Bld) 74.7 % High 47-70 [facility] Comment on above: Performed By: #### L 100.0100, L500.2500, L300.8000, L501.4020 #### [facility] [address] [place], [address] Nucleated RBC (Bld) [#/Vol] 0 10*3/uL Normal 0-5 [facility] Comment on above: Performed By: #### L 100.0100, L500.2500, L300.8000, L501.4020 #### [facility] [address] [place], [address] Platelet mean volume (Bld) [Entitic vol] 10.7 fL Normal 6.2-12.0 [facility] Comment on above: Performed By: #### L 100.0100, L500.2500, L300.8000, L501.4020 #### [facility] [address] [place], [address] Platelets (Bld) [#/Vol] 348 10*3/uL Normal 150-450 [facility] Comment on above: Performed By: #### L 100.0100, L500.2500, L300.8000, L501.4020 #### [facility] [address] [place], [address] RBC (Bld) [#/Vol] 5.09 10*6/uL Normal 4.2-5.4 [facility] Comment on above: Performed By: #### L 100.0100, L500.2500, L300.8000, L501.4020 #### [facility] [address] [place], [address] RDW SD 42.7 fl Normal 35.1-43.9 [facility] Comment on above: Performed By: #### L 100.0100, L500.2500, L300.8000, L501.4020 #### [facility] [address] [place], [address] WBC (Bld) [#/Vol] 14.1 10*3/uL High 4.4-11.0 [facility] Comment on above: Performed By: #### L 100.0100, L500.2500, L300.8000, L501.4020 #### [facility] [address] [place], [address] Chest 1 View (Portable)on Chest 1 View (Portable) [facility] Imaging Services [address] [place] [address] Chest 1 View (Portable) MR#: [id number] Acct: [id number] Name: FELICITAS ALCANTARA Rep #: [id number] : 1950 F 73 From: Hemanth Quinn MD PCP: Dr. Harish Noel MD Status: REG ER Study: Chest 1 View (Portable) Date of Exam: 01/15/24 Exam# [id number] Ordering Dr: Nathan Pritchard DO [id number] EXAM: XR CHEST, 1 VIEW CLINICAL INDICATION: [...] Nathan Pritchard DO; Dr. 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 Normal [facility] L501.4020on 01-15-2024 TROPONIN-I HS 9 pg/mL Normal 3.0-54.0 [facility] Comment on above: Result Comment: Plea se Note: New Test Units and Gender Specific Reference Ranges. For more information see Policy Stat Procedure [place] High Sensitivity Troponin (TNIH) and attachments. Performed By: #### L 400.0001 #### [facility] [address] [place], [address] L501.5425on 01-15-2024 TROPONIN-I HS 10 pg/mL Normal 3.0-54.0 [facility] Comment on above: Order Comment: 1Y Result Comment: Plea se Note: New Test Units and Gender Specific Reference Ranges. For more information see Policy Stat Procedure [place] High Sensitivity Troponin (TNIH) and attachments. Performed By: #### L 100.0100, L500.2500, L300.8000, L501.4020 #### [facility] [address] [place], [address] 12 Lead EKGon 09-03-2023 12 Lead EKG [facility] Cardiovascular Services [address] [place] [address] 12 Lead EKG 09/02/23 1636 MR#: [id number] Acct: [id number] Name: FELICITAS ALCANTARA Rep #: [id number] : 1950 72 From: Cecilio Feliz MD [...] by CECILIO FELIZ MD ([id number]), ALLA Vincent ([id number]) on 09/03/2023 11:26:35 AM Referred By: Confirmed By:CECILIO FELIZ MD 09/03/23 1126 Date Cecilio Feliz MD CC: Dr. Ravi Lamb MD; Dr. Harish Noel MD Signed [facility] 12 Lead EKG [facility] Cardiovascular Services [address] [place] [address] 12 Lead EKG 09/03/23 0638 MR#: [id number] Acct: [id number] Name: FELICITAS ALCANTARA Rep #: [id number] : 1950 72 From: Cecilio Feliz MD [...] Abnormal ECG Confirmed by CECILIO FELIZ MD ([id number]), ALLA Vincent ([id number]) on 09/05/2023 8:13:25 AM Referred By: JA Confirmed By:CECILIO FELIZ MD 09/05/23 0813 Date Cecilio Feliz MD CC: Dr. Ravi Lamb MD; Dr. Harish Noel MD Signed [facility] Abdomen/Pelvis W IV Cont ONL Yon 09-03-2023 Abdomen/Pelvis W IV Cont ONLY [facility] Imaging Services [address] [place], [place] [address] Abdomen/Pelvis W IV Cont ONLY MR#: [id number] Acct: [id number] Name: FELICITAS ALCANTARA Rep #: [id number] : 1950 F 72 From: Roel lopez MD PCP: Dr. Harish Noel MD Status: REG ER Study: Abdomen/Pelvis W IV Cont ONLY Date of Exam: Exam# [id number] Ordering Dr: Ravi Lamb [place] [id number] STUDY: CT ABDOMEN AND PELVIS WITH CONTRAST [...] Ravi Lamb MD; Dr. Harish Noel MD Director Of Sales Marketing: Signed Normal [facility] Basic Metabolic Profile (BMP )on 09-03-2023 BUN/CRE 18.8 RATIO Normal 10-20 [facility] Comment on above: Order Comment: MAURISIO CTOR TO SPECIFY Performed By: #### L 400.0001 #### [facility] [address] [place], [address] CA,Total 9.7 mg/dL Normal 8.5-10.1 [facility] Comment on above: Order Comment: MAURISIO CTOR TO SPECIFY Performed By: #### L 400.0001 #### [facility] [address] [place], [address] Chloride [Moles/Vol] 98 mmol/L Normal 98-107 [facility] Comment on above: Order Comment: MAURISIO CTOR TO SPECIFY Performed By: #### L 400.0001 #### [facility] [address] [place], [address] CO2 [Moles/Vol] 26.0 mmol/L Normal 21.0-32.0 [facility] Comment on above: Order Comment: MAURISIO CTOR TO SPECIFY Performed By: #### L 400.0001 #### [facility] [address] [place], [address] Creatinine [Mass/Vol] 0.90 mg/dL Normal 0.55-1.02 [facility] Comment on above: Order Comment: COLLE CTOR TO SPECIFY Result Comment: The validity of the calculated GFR GFRAA in patients over 70 years has not been determined. Clinical correlation is essential. Performed By: #### L 400.0001 #### [facility] [address] [place], [address] ECRCL 64.13 ml/min Normal [facility] Comment on above: Order Comment: MAURISIO DISLAOR TO SPECIFY Performed By: #### L 400.0001 #### [facility] [address] [place], [address] EST GFR - AA 79 mL/min Normal >60 [facility] Comment on above: Order Comment: MAURISIO DISLAOR TO SPECIFY Result Comment: Afri can Bhutanese GFR Calc Performed By: #### L 400.0001 #### [facility] [address] [place], [address] GAP 7 Normal 5-15 [facility] Comment on above: Order Comment: MAURISIO WHITE TO SPECIFY Performed By: #### L 400.0001 #### [facility] [address] [place], [address] GFR/1.73 sq M.predicted among non-blacks MDRD (S/P/Bld) [Vol rate/Area] 65 mL/min/{1.73_m2} Normal >60 [facility] Comment on above: Order Comment: MAURISIO WHITE TO SPECIFY Result Comment: Non- GFR Calc Performed By: #### L 400.0001 #### [facility] [address] [place], [address] Glucose [Mass/Vol] 278 mg/dL High 74-106 [facility] Comment on above: Order Comment: MAURISIO DISLAOR TO SPECIFY Result Comment: Gluc ose result greater than or equal to 200 mg/dL suggests DIABETES MELLITUS per A.D.A. criteria. Performed By: #### L 400.0001 #### [facility] [address] [place], [address] Potassium [Moles/Vol] 4.1 mmol/L Normal 3.5-5.1 [facility] Comment on above: Order Comment: MAURISIO CTOR TO SPECIFY Performed By: #### L 400.0001 #### [facility] [address] [place], [address] Sodium [Moles/Vol] 131 mmol/L Low 136-145 [facility] Comment on above: Order Comment: COLLE CTOR TO SPECIFY Performed By: #### L 400.0001 #### [facility] [address] [place], [address] Urea nitrogen [Mass/Vol] 17 mg/dL Normal 7-18 [facility] Comment on above: Order Comment: COLLE CTOR TO SPECIFY Performed By: #### L 400.0001 #### [facility] [address] [place], [address] Bedside Glucoseon 09-03-2023 FINGERSTICK GLU 295 mg/dL High 74-106 [facility] Comment on above: Result Comment: RIMMA ADRIAN OF PATIENT CARE PER NURSING PROTOCOL Performed By: #### L 100.0100, L500.2500, L300.8000, L501.4020 #### [facility] [address] [place], [address] CBC W/Diff, Automatedon - Absolute Lymph 2.10 X10 3/uL Normal 0.83-4.51 [facility] Comment on above: Performed By: #### L 400.0001 #### [facility] [address] [place], [address] Absolute Neut 15.2 X10 3/uL High 2.0-7.7 [facility] Comment on above: Performed By: #### L 400.0001 #### [facility] [address] [place], [address] Basophils/100 WBC (Bld) 0.4 % Normal 0-1 [facility] Comment on above: Performed By: #### L 400.0001 #### [facility] [address] [place], [address] Eosinophils/100 WBC (Bld) 0.4 % Normal 0-5 [facility] Comment on above: Performed By: #### L 400.0001 #### [facility] [address] [place], [address] Erythrocyte distribution width (RBC) [Ratio] 12.8 % Normal 11.6-14.6 [facility] Comment on above: Performed By: #### L 400.0001 #### [facility] [address] [place], [address] Hematocrit (Bld) [Volume fraction] 50.1 % High 37-47 [facility] Comment on above: Performed By: #### L 400.0001 #### [facility] [address] [place], [address] Hemoglobin (Bld) [Mass/Vol] 16.0 g/dL High 12.0-15.0 [facility] Comment on above: Performed By: #### L 400.0001 #### [facility] [address] [place], [address] IG% 0.700 Normal 0.0-0.9 [facility] Comment on above: Result Comment: IG% - Immature Granulocytes (promyelocytes, myelocytes and metamyelocytes) > 1% indicates that a LEFT SHIFT is Present. Performed By: #### L 400.0001 #### [facility] [address] [place], [address] Lymphocytes/100 WBC (Bld) 11.4 % Low 19-41 [facility] Comment on above: Performed By: #### L 400.0001 #### [facility] [address] [place], [address] MCH (RBC) [Entitic mass] 29.1 pg Normal 27.0-32.0 [facility] Comment on above: Performed By: #### L 400.0001 #### [facility] [address] [place], [address] MCHC (RBC) [Mass/Vol] 31.9 g/dL Low 32-36 [facility] Comment on above: Performed By: #### L 400.0001 #### [facility] [address] [place], [address] MCV (RBC) [Entitic vol] 91.1 fL Normal 81-99 [facility] Comment on above: Performed By: #### L 400.0001 #### [facility] [address] [place], [address] Monocytes/100 WBC (Bld) 4.8 % Normal 0-10 [facility] Comment on above: Performed By: #### L 400.0001 #### [facility] [address] [place], [address] Neutrophils/100 WBC (Bld) 82.3 % High 47-70 [facility] Comment on above: Performed By: #### L 400.0001 #### [facility] [address] [place], [address] Nucleated RBC (Bld) [#/Vol] 0 10*3/uL Normal 0-5 [facility] Comment on above: Performed By: #### L 400.0001 #### [facility] [address] [place], [address] Platelet mean volume (Bld) [Entitic vol] 10.7 fL Normal 6.2-12.0 [facility] Comment on above: Performed By: #### L 400.0001 #### [facility] [address] [place], [address] Platelets (Bld) [#/Vol] 333 10*3/uL Normal 150-450 [facility] Comment on above: Performed By: #### L 400.0001 #### [facility] [address] [place], [address] RBC (Bld) [#/Vol] 5.50 10*6/uL High 4.2-5.4 [facility] Comment on above: Performed By: #### L 400.0001 #### [facility] [address] [place], [address] RDW SD 42.5 fl Normal 35.1-43.9 [facility] Comment on above: Performed By: #### L 400.0001 #### [facility] [address] [place], [address] WBC (Bld) [#/Vol] 18.4 10*3/uL High 4.4-11.0 [facility] Comment on above: Performed By: #### L 400.0001 #### [facility] [address] [place], [address] Chest 1 View (Portable)on Chest 1 View (Portable) [facility] Imaging Services [address] [place] [address] Chest 1 View (Portable) MR#: [id number] Acct: [id number] Name: FELICITAS ALCANTARA Rep #: [id number] : 1950 F 72 From: Roel lopez MD PCP: Dr. Harish Noel MD Status: [facility] ER Study: Chest 1 View (Portable) Date of Exam: 09/03/23 Exam# [id number] Ordering Dr: Ravi Lamb MD [id number] STUDY: X-RAY CHEST REASON FOR EXAM: Female, [...] 8:33 EDT Reading Location ID and State: [address] [place] [address] , Service support , CC: Dr. Ravi Lamb MD; Dr. 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 Normal [facility] L501.4020on 09-03-2023 TROPONIN-I HS 14 pg/mL Normal 3.0-54.0 [facility] Comment on above: Order Comment: 'TROP ' Serial specimen #1, #2 or #3: 1 Result Comment: Plea se Note: New Test Units and Gender Specific Reference Ranges. For more information see Policy Stat Procedure [place] High Sensitivity Troponin (TNIH) and attachments. Performed By: #### L 100.0100, L500.2500, L300.8000, L501.4020 #### [facility] [address] [place], [address] Urinalysis, Completeon 09-02 BACTERIA 2+ /hpf Normal None Seen [facility] Comment on above: Order Comment: MAURISIO CTOR TO SPECIFY Performed By: #### L 400.0001 #### [facility] [address] [place], [address] EPI,SQUAMOUS 0-5 SEEN Normal 5-10 [facility] Comment on above: Order Comment: MAURISIO CTOR TO SPECIFY Performed By: #### L 400.0001 #### [facility] [address] [place], [address] WBC 0-5 SEEN Normal 0-5 [facility] Comment on above: Order Comment: MAURISIO CTOR TO SPECIFY Performed By: #### L 400.0001 #### [facility] [address] [place], [address] Mucus Ql (Urine sed) 0 SEEN Normal [facility] Comment on above: Order Comment: MAURISIO CTOR TO SPECIFY Performed By: #### L 400.0001 #### [facility] [address] [place], [address] RBC 0 SEEN Normal 0-5 [facility] Comment on above: Order Comment: MAURISIO CTOR TO SPECIFY Performed By: #### L 400.0001 #### [facility] [address] [place], [address] Basic Metabolic Profile (BMP )on 09-02-2023 BUN/CRE 20.0 RATIO Normal 10-20 [facility] Comment on above: Order Comment: 'TROP ' Serial specimen #1, #2 or #3: 1 Performed By: #### L 100.0100, L500.2500, L300.8000, L501.4020 #### [facility] [address] [place], [address] CA,Total 9.4 mg/dL Normal 8.5-10.1 [facility] Comment on above: Order Comment: 'TROP ' Serial specimen #1, #2 or #3: 1 Performed By: #### L 100.0100, L500.2500, L300.8000, L501.4020 #### [facility] [address] [place], [address] Chloride [Moles/Vol] 101 mmol/L Normal 98-107 [facility] Comment on above: Order Comment: 'TROP ' Serial specimen #1, #2 or #3: 1 Performed By: #### L 100.0100, L500.2500, L300.8000, L501.4020 #### [facility] [address] [place], [address] CO2 [Moles/Vol] 27.0 mmol/L Normal 21.0-32.0 [facility] Comment on above: Order Comment: 'TROP ' Serial specimen #1, #2 or #3: 1 Performed By: #### L 100.0100, L500.2500, L300.8000, L501.4020 #### [facility] [address] [place], [address] Creatinine [Mass/Vol] 0.95 mg/dL Normal 0.55-1.02 [facility] Comment on above: Order Comment: 'TROP ' Serial specimen #1, #2 or #3: 1 Result Comment: The validity of the calculated GFR GFRAA in patients over 70 years has not been determined. Clinical correlation is essential. Performed By: #### L 100.0100, L500.2500, L300.8000, L501.4020 #### [facility] [address] [place], [address] ECRCL 61.67 ml/min Normal [facility] Comment on above: Order Comment: 'TROP ' Serial specimen #1, #2 or #3: 1 Performed By: #### L 100.0100, L500.2500, L300.8000, L501.4020 #### [facility] [address] [place], [address] EST GFR - AA 74 mL/min Normal >60 [facility] Comment on above: Order Comment: 'TROP ' Serial specimen #1, #2 or #3: 1 Result Comment: Afri can Bhutanese GFR Calc Performed By: #### L 100.0100, L500.2500, L300.8000, L501.4020 #### [facility] [address] [place], [address] GAP 8 Normal 5-15 [facility] Comment on above: Order Comment: 'TROP ' Serial specimen #1, #2 or #3: 1 Performed By: #### L 100.0100, L500.2500, L300.8000, L501.4020 #### [facility] [address] [place], [address] GFR/1.73 sq M.predicted among non-blacks MDRD (S/P/Bld) [Vol rate/Area] 62 mL/min/{1.73_m2} Normal >60 [facility] Comment on above: Order Comment: 'TROP ' Serial specimen #1, #2 or #3: 1 Result Comment: Non- GFR Calc Performed By: #### L 100.0100, L500.2500, L300.8000, L501.4020 #### [facility] [address] [place], [address] Glucose [Mass/Vol] 276 mg/dL High 74-106 [facility] Comment on above: Order Comment: 'TROP ' Serial specimen #1, #2 or #3: 1 Result Comment: Gluc ose result greater than or equal to 200 mg/dL suggests DIABETES MELLITUS per A.D.A. criteria. Performed By: #### L 100.0100, L500.2500, L300.8000, L501.4020 #### [facility] [address] [place], [address] Potassium [Moles/Vol] 4.2 mmol/L Normal 3.5-5.1 [facility] Comment on above: Order Comment: 'TROP ' Serial specimen #1, #2 or #3: 1 Performed By: #### L 100.0100, L500.2500, L300.8000, L501.4020 #### [facility] [address] [place], [address] Sodium [Moles/Vol] 136 mmol/L Normal 136-145 [facility] Comment on above: Order Comment: 'TROP ' Serial specimen #1, #2 or #3: 1 Performed By: #### L 100.0100, L500.2500, L300.8000, L501.4020 #### [facility] [address] [place], [address] Urea nitrogen [Mass/Vol] 19 mg/dL High 7-18 [facility] Comment on above: Order Comment: 'TROP ' Serial specimen #1, #2 or #3: 1 Performed By: #### L 100.0100, L500.2500, L300.8000, L501.4020 #### [facility] [address] [place], [address] CBC W/Diff, Automatedon 06-1 -2023 Absolute Lymph 1.95 X10 3/uL Normal 0.83-4.51 [facility] Comment on above: Performed By: #### L 100.0100, L500.2500, L300.8000, L501.4020 #### [facility] [address] [place], [address] Absolute Neut 10.4 X10 3/uL High 2.0-7.7 [facility] Comment on above: Performed By: #### L 100.0100, L500.2500, L300.8000, L501.4020 #### [facility] [address] [place], [address] Basophils/100 WBC (Bld) 0.6 % Normal 0-1 [facility] Comment on above: Performed By: #### L 100.0100, L500.2500, L300.8000, L501.4020 #### [facility] [address] [place], [address] Eosinophils/100 WBC (Bld) 2.0 % Normal 0-5 [facility] Comment on above: Performed By: #### L 100.0100, L500.2500, L300.8000, L501.4020 #### [facility] [address] [place], [address] Erythrocyte distribution width (RBC) [Ratio] 12.8 % Normal 11.6-14.6 [facility] Comment on above: Performed By: #### L 100.0100, L500.2500, L300.8000, L501.4020 #### [facility] [address] [place], [address] Hematocrit (Bld) [Volume fraction] 46.8 % Normal 37-47 [facility] Comment on above: Performed By: #### L 100.0100, L500.2500, L300.8000, L501.4020 #### [facility] [address] [place], [address] Hemoglobin (Bld) [Mass/Vol] 15.1 g/dL High 12.0-15.0 [facility] Comment on above: Performed By: #### L 100.0100, L500.2500, L300.8000, L501.4020 #### [facility] [address] [place], [address] IG% 0.700 Normal 0.0-0.9 [facility] Comment on above: Result Comment: IG% - Immature Granulocytes (promyelocytes, myelocytes and metamyelocytes) > 1% indicates that a LEFT SHIFT is Present. Performed By: #### L 100.0100, L500.2500, L300.8000, L501.4020 #### [facility] [address] [place], [address] Lymphocytes/100 WBC (Bld) 14.3 % Low 19-41 [facility] Comment on above: Performed By: #### L 100.0100, L500.2500, L300.8000, L501.4020 #### [facility] [address] [place], [address] MCH (RBC) [Entitic mass] 29.2 pg Normal 27.0-32.0 [facility] Comment on above: Performed By: #### L 100.0100, L500.2500, L300.8000, L501.4020 #### [facility] [address] [place], [address] MCHC (RBC) [Mass/Vol] 32.3 g/dL Normal 32-36 [facility] Comment on above: Performed By: #### L 100.0100, L500.2500, L300.8000, L501.4020 #### [facility] [address] [place], [address] MCV (RBC) [Entitic vol] 90.3 fL Normal 81-99 [facility] Comment on above: Performed By: #### L 100.0100, L500.2500, L300.8000, L501.4020 #### [facility] [address] [place], [address] Monocytes/100 WBC (Bld) 6.0 % Normal 0-10 [facility] Comment on above: Performed By: #### L 100.0100, L500.2500, L300.8000, L501.4020 #### [facility] [address] [place], [address] Neutrophils/100 WBC (Bld) 76.4 % High 47-70 [facility] Comment on above: Performed By: #### L 100.0100, L500.2500, L300.8000, L501.4020 #### [facility] [address] [place], [address] Nucleated RBC (Bld) [#/Vol] 0 10*3/uL Normal 0-5 [facility] Comment on above: Performed By: #### L 100.0100, L500.2500, L300.8000, L501.4020 #### [facility] [address] [place], [address] Platelet mean volume (Bld) [Entitic vol] 10.8 fL Normal 6.2-12.0 [facility] Comment on above: Performed By: #### L 100.0100, L500.2500, L300.8000, L501.4020 #### [facility] [address] [place], [address] Platelets (Bld) [#/Vol] 309 10*3/uL Normal 150-450 [facility] Comment on above: Performed By: #### L 100.0100, L500.2500, L300.8000, L501.4020 #### [facility] [address] [place], [address] RBC (Bld) [#/Vol] 5.18 10*6/uL Normal 4.2-5.4 [facility] Comment on above: Performed By: #### L 100.0100, L500.2500, L300.8000, L501.4020 #### [facility] [address] [place], [address] RDW SD 42.4 fl Normal 35.1-43.9 [facility] Comment on above: Performed By: #### L 100.0100, L500.2500, L300.8000, L501.4020 #### [facility] [address] [place], [address] WBC (Bld) [#/Vol] 13.6 10*3/uL High 4.4-11.0 [facility] Comment on above: Performed By: #### L 100.0100, L500.2500, L300.8000, L501.4020 #### [facility] [address] [place], [address] Chest PA and Lateralon 09-01 Chest PA and Lateral [facility] Imaging Services [address] [place] [address] Chest PA and Lateral MR#: [id number] Acct: [id number] Name: FELICITAS ALCANTARA Rep #: [id number] : 1950 F 72 From: Malachi Lindsay MD PCP: Dr. Harish Noel MD Status: REG ER Study: Chest PA and Lateral Date of Exam: 09/02/23 Exam# [id number] Ordering Dr: Nathan Pritchard DO [id number] STUDY: X-RAY CHEST REASON FOR EXAM: Female, [...] or noncardiogenic pulmonary edema Electronically Signed: Malachi Lindasy MD at 17:23 EDT , CC: Dr. Nathan Pritchard DO; Dr. Harish Noel MD Director Of Sales Marketing: Signed Normal [facility] D-Dimer Quantitative (DVT/PE )on 09-02-2023 D-DIMER QUANT 0.40 FEU/ug/m Normal 0.27-0.49 [facility] Comment on above: Result Comment: NORM AL D-Dimer level (<0.50) indicates no DVT or PE. Performed By: #### L 100.0100, L500.2500, L300.8000, L501.4020 #### [facility] [address] [facility] [place], [address] Emergency Department Summary on 09-02-2023 Emergency Department Summary [facility] Medical Records Department [address] [place] [address] Emergency Department Summary 09/02/23 MR#: [id number] Acct: [id number] Name: FELICITAS ALCANTARA Rep #: [id number] : 1950 72 From: Nathan Pritchard DO [...] also admits to some dizziness and headache. [facility] Medical History History of left heart catheterization (LHC) ( 09/05/21) Abnormal nuclear stress test Dyspnea on exertion Mass of lip Elevated WBC count History of DVT (deep vein thrombosis) Presence of stent in coronary artery ( 04/10/16) History of non-ST elevation myocardial infarction (NSTEMI) Cardiogenic shock Type 2 diabetes mellitus Atherosclerotic heart disease of [place] coronary artery without angina pectoris Essential hypertension [...] 17:24 Temperatur (more content not included)... Normal [facility] L501.4020on 09-02-2023 TROPONIN-I HS 12 pg/mL Normal 3.0-54.0 [facility] Comment on above: Order Comment: 'TROP ' Serial specimen #1, #2 or #3: 1 Result Comment: Carlton rice Note: New Test Units and Gender Specific Reference Ranges. For more information see Policy Stat Procedure [place] High Sensitivity Troponin (TNIH) and attachments. Performed By: #### L 100.0100, L500.2500, L300.8000, L501.4020 #### [facility] [address] [place], [address] Urinalysis, Completeon 09-01 EPI,SQUAMOUS 0-5 SEEN Normal 5-10 [facility] Comment on above: Order Comment: MAURISIO WHITE TO SPECIFY Performed By: #### L 400.0001 #### [facility] [address] [place], [address] BACTERIA 0 SEEN Normal None Seen [facility] Comment on above: Order Comment: COLLE CTOR TO SPECIFY Performed By: #### L 400.0001 #### [facility] [address] [place], [address] Mucus Ql (Urine sed) 0 SEEN Normal [facility] Comment on above: Order Comment: COLLE CTOR TO SPECIFY Performed By: #### L 400.0001 #### [facility] [address] [place], [address] RBC 0 SEEN Normal 0-5 [facility] Comment on above: Order Comment: COLLE CTOR TO SPECIFY Performed By: #### L 400.0001 #### [facility] [address] [place], [address] WBC 0 SEEN Normal 0-5 [facility] Comment on above: Order Comment: COLLE CTOR TO SPECIFY Performed By: #### L 400.0001 #### [facility] [address] [place], [address] MR/BMS.Bon 08-05-2023 MR/BMS.[facility] [facility] [address] [place] [address] OFFICE VISIT Date of Service: 08/05/23 MR#: [id number] Acct: [id number] Name: FELICITAS ALCANTARA Rep #: [id number] : 1950 Provider: Dr. 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 She is only on carvedilol and clopidogrel [...] clear thyrom (more content not included)... Normal [facility] Absolute lymphocyte countOrd ered By: Dr. Noel on 06-11-2022 Lymphocytes Auto (Unsp spec) [#/Vol] 3.11 10*3/uL 0.83-4.51 [facility] Basophil percentageOrdered B y: Dr. Noel on 06-11-2022 Basophils/100 WBC (Bld) 0.6 % 0-1 [facility] Bilirubin [Mass/Vol] 0.60 mg/dL 0.20-1.00 [facility] Comment on above: For patients on eltr ombopag therapy, use of Dimension [place] TBIL is not recommended. Chloride [Moles/Vol] 102 mmol/L 98-107 [facility] Eosinophils/100 WBC (Bld) 2.2 % 0-5 [facility] Glucose [Mass/Vol] 173 mg/dL 74-106 [facility] [facility] Comment on above: Fasting Glucose resu lt greater than or equal to 126 mg/dL suggests DIABETES MELLITUS per A.D.A. criteria. Neutrophils (Bld) [#/Vol] 9.5 10*3/uL 2.0-7.7 [facility] Neutrophils/100 WBC (Bld) 67.2 % 47-70 [facility] Potassium [Moles/Vol] 4.2 mmol/L 3.5-5.1 [facility] Protein [Mass/Vol] 7.5 g/dL 6.4-8.2 [facility] Sodium [Moles/Vol] 135 mmol/L 136-145 [facility] WBC (Bld) [#/Vol] 14.0 10*3/uL 4.4-11.0 [facility] Basophil percentageOrdered B y: Rustam Francois on 06-11-2022 Cholesterol [Mass/Vol] 158 mg/dL <200 [facility] Comment on above: <200 mg/dL Desirable 200-240 mg/dL Borderline >240 mg/dL High Risk Triglyceride [Mass/Vol] 212 mg/dL <199 [facility] Comment on above: The drugs N-Acetylcy steine and Metamizole may falsely depress this assay.Serum Triglycerides Reference Interval Normal <150 mg/dL Borderline high 150 - 199 mg/dL High 200 - 499 mg/dL Very High > or = 500 mg/dL Blood erythrocytes count (nu mber/volume)Ordered By: Dr. Noel on 06-11-2022 RBC (Bld) [#/Vol] 5.01 10*6/uL 4.2-5.4 [facility] Blood hemoglobin measurement (mass/volume)Ordered By: Dr. Noel on 06-11-2022 Hemoglobin (Bld) [Mass/Vol] 14.6 g/dL 12.0-15.0 [facility] Blood lymphocytes/100 leukoc ytesOrdered By: Dr. Noel on 06-11-2022 Lymphocytes/100 WBC (Bld) 22.2 % 19-41 [facility] Blood monocytes/100 leukocyt esOrdered By: Dr. Noel on 06-11-2022 Monocytes/100 WBC (Bld) 7.0 % 0-10 [facility] Blood platelet mean volumeOr dered By: Dr. Noel on 06-11-2022 Platelet mean volume (Bld) [Entitic vol] 10.5 fL 6.2-12.0 [facility] Determination of erythrocyte mean corpuscular volume (MCV)Ordered By: Dr. Noel on 06-11-2022 MCV (RBC) [Entitic vol] 89.6 fL 81-99 [facility] Direct bilirubinOrdered By: Dr. Noel on 06-11-2022 Bilirubin.direct [Mass/Vol] 0.16 mg/dL 0.00-0.30 [facility] Hematocrit Auto (Bld) [Volum e fraction]Ordered By: Dr. Noel on 06-11-2022 Hematocrit (Bld) [Volume fraction] 44.9 % 37-47 [facility] Laboratory - Chemistry and C hemistry - challengeOrdered By: Dr. Noel on 06-11-2022 ALP [Catalytic activity/Vol] 98 U/L 45-117 [facility] ALT [Catalytic activity/Vol] 25 U/L 13-56 [facility] CO2 [Moles/Vol] 28.0 mmol/L 21.0-32.0 [facility] Cobalamin (Vitamin B12) [Mass/Vol] 296 pg/mL 211-911 [facility] Free T4 [Mass/Vol] 1.03 ng/dL 0.76-1.46 [facility] Globulin (S) [Mass/Vol] 4.2 g/dL 2.2-4.2 [facility] Urea nitrogen/Creatinine [Mass ratio] 21.3 mg/mg 10-20 [facility] Laboratory - Hematology and Cell countsOrdered By: Dr. Noel on 06-11-2022 Erythrocyte distribution width (RBC) [Entitic vol] 46.9 fL 35.1-43.9 [facility] Erythrocyte distribution width (RBC) [Ratio] 14.3 % 11.6-14.6 [facility] Immature granulocytes/100 WBC (Bld) 0.800 % 0.0-0.9 [facility] Comment on above: IG% - Immature Granu locytes (promyelocytes, myelocytes and metamyelocytes) > 1% indicates that a LEFT SHIFT is Present. MCH (RBC) [Entitic mass] 29.1 pg 27.0-32.0 [facility] Nucleated RBC/100 WBC (Bld) [Ratio] 0 % 0-5 [facility] MCHC Auto (RBC) [Mass/Vol]Or dered By: Dr. Noel on 06-11-2022 MCHC (RBC) [Mass/Vol] 32.5 g/dL 32-36 [facility] No Panel InformationOrdered By: Dr. Noel on 06-11-2022 Estimated GFR (MDRD) Amer 80 mL/min >60 [facility] Comment on above: GFR Calc Estimated GFR (MDRD) Non-Af Amer 66 mL/min >60 [facility] Comment on above: Non- GFR Calc Free Triiodothyronine (T3) pg/dL 2.6 pg/mL 2.18-3.98 [facility] Thyroid Stimulating Hormone (TSH) 8.13 uIU/mL 0.358-3.74 [facility] Vitamin D 25-Hydroxy 24.6 ng/mL [facility] Comment on above: Vitamin D 25(OH) Sta tus Range Deficiency <20 ng/mL (50nmol/L) Insufficiency 20 - 30 ng/mL (50 - 75 nmol/L) Sufficiency 30 - 100 ng/mL (75 - 250 nmol/L) Toxicity >100 ng/mL (>250 nmol/L) Platelets bldOrdered By: Dr. Noel on 06-11-2022 Platelets (Bld) [#/Vol] 316 10*3/uL 150-450 [facility] Serum or plasma albumin betsy urement (mass/volume)Ordered By: Dr. Noel on 06-11-2022 Albumin [Mass/Vol] 3.3 g/dL 3.2-5.0 [facility] Serum or plasma albumin/glob ulin mass ratioOrdered By: Dr. Noel on 06-11-2022 Albumin/Globulin [Mass ratio] 0.8 {ratio} 0.9-2.4 [facility] Serum or plasma calcium betsy urement (mass/volume)Ordered By: Dr. Noel on 06-11-2022 Calcium [Mass/Vol] 9.1 mg/dL 8.5-10.1 [facility] Serum or plasma cholesterol in HDL measurement (mass/volume)Ordered By: Rustam Francois on 06-11-2022 Cholesterol in HDL [Mass/Vol] 51 mg/dL >40 [facility] Comment on above: The drugs N-Acetylcy steine and Metamizole may falsely depress this assay. Reference Range HDL <40 mg/dL Low HDL Cholesterol HDL >or= 60 mg/dL High HDL Cholesterol Serum or plasma cholesterol in VLDL measurement (mass/volume)Ordered By: Rustam Francois on 06-11-2022 Cholesterol in VLDL [Mass/Vol] 42 mg/dL 5-40 [facility] Serum or plasma creatinine m easurement (mass/volume)Ordered By: Dr. Noel on 06-11-2022 Creatinine [Mass/Vol] 0.89 mg/dL 0.55-1.02 [facility] Comment on above: The validity of the calculated GFR & GFRAA in patients over 70 years has not been determined. Clinical correlation is essential. Serum or plasma low density lipoprotein (LDL) cholesterol measurement (mass/volume)Ordered By: Rustam Francois on 06-11-2022 Cholesterol in LDL [Mass/Vol] 65 mg/dL 0-130 [facility] Serum or plasma urea nitroge n measurement (mass/volume)Ordered By: Dr. Noel on 06-11-2022 Urea nitrogen [Mass/Vol] 19 mg/dL 7-18 [facility] Thin prep Papanicolaou smear with manual screeningOrdered By: Dr. Nole on 06-11-2022 Thin prep Papanicolaou smear with manual screening 19 U/L 15-37 [facility] Thin prep Papanicolaou smear with manual screening 5 5-15 [facility] Laboratory - Hematology and Cell countson 05-16-2022 HbA1c (Bld) [Mass fraction] 10.0 % 4.2-6.3 [facility] Absolute lymphocyte counton 01-21-2022 Lymphocytes Auto (Unsp spec) [#/Vol] 2.10 10*3/uL 0.83-4.51 [facility] Work Phone: Basophil percentageon 2021 Basophils/100 WBC (Bld) 0.6 % 0-1 [facility] Work Phone: Chloride [Moles/Vol] 98 mmol/L 98-107 [facility] Work Phone: Eosinophils/100 WBC (Bld) 1.8 % 0-5 [facility] Work Phone: Glucose [Mass/Vol] 208 mg/dL 74-106 [facility] Work Phone: Comment on above: Glucose result great er than or equal to 200 mg/dLsuggests DIABETES MELLITUS per A.D.A. criteria. Neutrophils (Bld) [#/Vol] 12.6 10*3/uL 2.0-7.7 [facility] Work Phone: Neutrophils/100 WBC (Bld) 77.5 % 47-70 [facility] Work Phone: Potassium [Moles/Vol] 4.1 mmol/L 3.5-5.1 [facility] Work Phone: Sodium [Moles/Vol] 134 mmol/L 136-145 [facility] Work Phone: WBC (Bld) [#/Vol] 16.3 10*3/uL 4.4-11.0 [facility] Blood erythrocytes count (nu mber/volume)on 01-21-2022 RBC (Bld) [#/Vol] 4.75 10*6/uL 4.2-5.4 [facility]: Blood hemoglobin measurement (mass/volume)on 01-21-2022 Hemoglobin (Bld) [Mass/Vol] 13.6 g/dL 12.0-15.0 [facility] Work Phone: Blood lymphocytes/100 leukoc yteson 01-21-2022 Lymphocytes/100 WBC (Bld) 12.9 % 19-41 [facility] Work Phone: Blood monocytes/100 leukocyt eson 01-21-2022 Monocytes/100 WBC (Bld) 6.2 % 0-10 [facility] Work Phone: Blood platelet mean volumeon 01-21-2022 Platelet mean volume (Bld) [Entitic vol] 10.3 fL 6.2-12.0 [facility] Work Phone: Determination of erythrocyte mean corpuscular volume (MCV)on 01-21-2022 MCV (RBC) [Entitic vol] 90.9 fL 81-99 [facility] Work Phone: Glucose Glucometer (BldC) [M ass/Vol]on 01-21-2022 Glucose [Mass/Vol] 215 mg/dL 74-106 [facility] Work Phone: Comment on above: MANAGEMENT OF PATIEN T CARE PER NURSING PROTOCOL Hematocrit Auto (Bld) [Volum e fraction]on 01-21-2022 Hematocrit (Bld) [Volume fraction] 43.2 % 37-47 [facility] Work Phone: Laboratory - Chemistry and C hemistry - challengeon 01-21-2022 CO2 [Moles/Vol] 29.0 mmol/L 21.0-32.0 [facility] Work Phone: Urea nitrogen/Creatinine [Mass ratio] 18.6 mg/mg 10-20 [facility] Work Phone: [phone] Laboratory - Hematology and Cell countson 01-21-2022 Erythrocyte distribution width (RBC) [Entitic vol] 42.5 fL 35.1-43.9 [facility] Work Phone: [phone] Erythrocyte distribution width (RBC) [Ratio] 12.8 % 11.6-14.6 [facility] Work Phone: Immature granulocytes/100 WBC (Bld) 1.000 % 0.0-0.9 [facility] Work Phone: Comment on above: IG% - Immature Granu locytes (promyelocytes, myelocytes and metamyelocytes) > 1% indicates that a LEFT SHIFT is Present. MCH (RBC) [Entitic mass] 28.6 pg 27.0-32.0 [facility] Work Phone: Nucleated RBC/100 WBC (Bld) [Ratio] 0 % 0-5 [facility] Work Phone: MCHC Auto (RBC) [Mass/Vol]on 01-21-2022 MCHC (RBC) [Mass/Vol] 31.5 g/dL 32-36 [facility] Work Phone: No Panel Informationon 01-21 D-Dimer Quantitative (PE/DVT) 1.38 FEU/ug/m 0.27-0.49 [facility] Work Phone: Comment on above: D-Dimer ELEVATED (>0 .49): Additional studies and clinicalassessments are indicated to conclude diagnosis of:Deep Vein Thrombosis (DVT) or Pulmonary Embolism (PE)CRITICAL VALUE VERIFIED. CALLED TO JEEWLL RODRIGEZ01/21/22 164[place].RESULTS READ BACK BY SAME . Estimated Creatinine Clearance Calc 45.50 ml/min [facility] Work Phone: Estimated GFR (MDRD) Amer 78 mL/min >60 [facility] Work Phone: Comment on above: GFR Calc Estimated GFR (MDRD) Non-Af Amer 65 mL/min >60 [facility] Work Phone: Comment on above: Non- GFR Calc Troponin I High Sensitivity 17 pg/mL 3.0-54.0 [facility] Work Phone: Comment on above: Please Note: New [place] t Units and Gender Specific Reference Ranges. For more information see Policy Stat Procedure [place] High Sensitivity Troponin (TNIH) and attachments. Platelets bldon 01-21-2022 Platelets (Bld) [#/Vol] 374 10*3/uL 150-450 [facility] Work Phone: Serum or plasma calcium betsy urement (mass/volume)on 01-21-2022 Calcium [Mass/Vol] 10.3 mg/dL 8.5-10.1 [facility] Work Phone: Serum or plasma creatinine m easurement (mass/volume)on 01-21-2022 Creatinine [Mass/Vol] 0.91 mg/dL 0.55-1.02 [facility] Work Phone: Comment on above: The validity of the calculated GFR & GFRAA in patients over 70 years has not been determined. Clinical correlation is essential. Serum or plasma urea nitroge n measurement (mass/volume)on 01-21-2022 Urea nitrogen [Mass/Vol] 17 mg/dL 7-18 [facility] Work Phone: Thin prep Papanicolaou smear with manual screeningon 01-21-2022 Thin prep Papanicolaou smear with manual screening 7 5-15 [facility] Work Phone: [phone] Basophil percentageon 2021 Bilirubin [Mass/Vol] 0.50 mg/dL 0.20-1.00 [facility] Work Phone: Comment on above: For patients on eltr ombopag therapy, use of Dimension [place] TBIL is not recommended. Chloride [Moles/Vol] 102 mmol/L 98-107 [facility] Work Phone: [phone] Glucose [Mass/Vol] 109 mg/dL 74-106 [facility] Work Phone: Comment on above: Fasting Glucose resu lt from 100 to 125 mg/dL suggests IMPAIRED HOMEOSTASIS per A.D.A. criteria. Potassium [Moles/Vol] 4.2 mmol/L 3.5-5.1 [facility] Work Phone: [phone] Protein [Mass/Vol] 7.6 g/dL 6.4-8.2 [facility] Work Phone: [phone] Sodium [Moles/Vol] 136 mmol/L 136-145 [facility] Work Phone: Laboratory - Chemistry and C hemistry - challengeon 01-11-2022 ALP [Catalytic activity/Vol] 94 U/L 45-117 [facility] Work Phone: ALT [Catalytic activity/Vol] 20 U/L 13-56 [facility] Work Phone: [phone] CO2 [Moles/Vol] 29.0 mmol/L 21.0-32.0 [facility] Work Phone: [phone] Free T4 [Mass/Vol] 0.90 ng/dL 0.76-1.46 [facility] Work Phone: Globulin (S) [Mass/Vol] 4.2 g/dL 2.2-4.2 [facility] Work Phone: [phone] Magnesium [Mass/Vol] 2.0 mg/dL 1.6-2.6 [facility] Work Phone: [phone] Urea nitrogen/Creatinine [Mass ratio] 22.6 mg/mg 10-20 [facility] Work Phone: No Panel Informationon 01-11 Estimated GFR (MDRD) Amer 98 mL/min >60 [facility] Work Phone: Comment on above: GFR Calc Estimated GFR (MDRD) Non-Af Amer 81 mL/min >60 [facility] Work Phone: Comment on above: Non- GFR Calc Free Triiodothyronine (T3) pg/dL 3.5 pg/mL 2.18-3.98 [facility] Work Phone: [phone] Thyroid Stimulating Hormone (TSH) 2.25 uIU/mL 0.358-3.74 [facility] Work Phone: Vitamin D 25-Hydroxy 19.4 ng/mL [facility] Work Phone: Comment on above: Vitamin D 25(OH) Sta tus Range Deficiency <20 ng/mL (50nmol/L) Insufficiency 20 - 30 ng/mL (50 - 75 nmol/L) Sufficiency 30 - 100 ng/mL (75 - 250 nmol/L) Toxicity >100 ng/mL (>250 nmol/L) Serum or plasma albumin betsy urement (mass/volume)on 01-11-2022 Albumin [Mass/Vol] 3.4 g/dL 3.2-5.0 [facility] Work Phone: Serum or plasma albumin/glob ulin mass ratioon 01-11-2022 Albumin/Globulin [Mass ratio] 0.8 {ratio} 0.9-2.4 [facility] Work Phone: Serum or plasma calcium betsy urement (mass/volume)on 01-11-2022 Calcium [Mass/Vol] 9.5 mg/dL 8.5-10.1 [facility] Work Phone: Serum or plasma creatinine m easurement (mass/volume)on 01-11-2022 Creatinine [Mass/Vol] 0.75 mg/dL 0.55-1.02 [facility] Work Phone: Comment on above: The validity of the calculated GFR & GFRAA in patients over 70 years has not been determined. Clinical correlation is essential. Serum or plasma urea nitroge n measurement (mass/volume)on 01-11-2022 Urea nitrogen [Mass/Vol] 17 mg/dL 7-18 [facility] Work Phone: Thin prep Papanicolaou smear with manual screeningon 01-11-2022 Thin prep Papanicolaou smear with manual screening 14 U/L 15-37 [facility] Work Phone: Thin prep Papanicolaou smear with manual screening 5 5-15 [facility] Work Phone: XR CHEST 2 VIEWSon 2 [...] by: Fausto Wong MD Preliminary Report By: Fuasto Wong MD Electronically signed By Fausto Wong MD Dictated Date: 12/28/2021 12:00:58 AM Prelim Date: 12/28/2021 12:02:56 AM Sign Date: 12/28/2021 12:02:56 AM Ordering Provider: JUAN JUAREZ [facility] ([place]) XR CHEST 2 VIEWSon XR CHEST 2 [...] 12/15/2021 8:57:36 AM Ordering Provider: JUAN JUAREZ [facility] ([place]) .GFRon 12-14-2021 GFR >60 [facility] ([place]) Comment on above: Result Comment: GFR Population [...] GLURP, CLRP, NARP, BGRP, KRP, CARP #### [address] [address] GFR Non- >60 Normal [facility] ([place]) Comment on above: Result Comment: GFR Population [...] GLURP, CLRP, NARP, BGRP, KRP, CARP #### [address] [address] BMPon 12-14-2021 BUN/Creatinine Ratio 32.6 ratio High 10.0-22.0 [facility] ([place]) Comment on above: Performed By: #### H CTRP, HGBRP, GLURP, CLRP, NARP, BGRP, KRP, CARP #### [address] [address] Calcium [Mass/Vol] 10.0 mg/dL Normal 8.7-10.4 [facility] ([place]) Comment on above: Performed By: #### H CTRP, HGBRP, GLURP, CLRP, NARP, BGRP, KRP, CARP #### [address] [address] Chloride [Moles/Vol] 99 mmol/L Normal 98-110 [facility] ([place]) Comment on above: Performed By: #### H CTRP, HGBRP, GLURP, CLRP, NARP, BGRP, KRP, CARP #### [address] [address] CO2 [Moles/Vol] 32 mmol/L Normal 22-32 [facility] ([place]) Comment on above: Performed By: #### H CTRP, HGBRP, GLURP, CLRP, NARP, BGRP, KRP, CARP #### [address] [address] Creatinine [Mass/Vol] 0.86 mg/dL Normal 0.50-1.20 [facility] ([place]) Comment on above: Performed By: #### H CTRP, HGBRP, GLURP, CLRP, NARP, BGRP, KRP, CARP #### [address] [address] Electrolyte Balance 6.0 mEq/L Normal 4.0-15.0 [facility] ([place]) Comment on above: Performed By: #### H CTRP, HGBRP, GLURP, CLRP, NARP, BGRP, KRP, CARP #### [address] [address] Glucose [Mass/Vol] 268 mg/dL High 82-115 [facility] ([place]) Comment on above: Performed By: #### H CTRP, HGBRP, GLURP, CLRP, NARP, BGRP, KRP, CARP #### [address] [address] Potassium [Moles/Vol] 5.0 mmol/L Normal 3.5-5.0 [facility] ([place]) Comment on above: Result Comment: Spec imen slightly hemolyzed. Performed By: #### H CTRP, HGBRP, GLURP, CLRP, NARP, BGRP, KRP, CARP #### [address] [address] Sodium [Moles/Vol] 137 mmol/L Normal 136-145 [facility] ([place]) Comment on above: Performed By: #### H CTRP, HGBRP, GLURP, CLRP, NARP, BGRP, KRP, CARP #### [address] [address] Urea nitrogen [Mass/Vol] 28.0 mg/dL High 8.0-22.0 [facility] ([place]) Comment on above: Performed By: #### H CTRP, HGBRP, GLURP, CLRP, NARP, BGRP, KRP, CARP #### [address] [address] LABORATORYOrdered By: SYSTEM SYSTEM on 12-13-2021 Calcium [...] 11/30/2021 12:35:45 AM Ordering Provider: NAT Mercado [facility] ([place]) .Auto Diffon 11-29-2021 Basophil, Absolute 0.1 10 3/mcL Normal 0.0-0.3 [facility] ([place]) Comment on above: Performed By: #### H CTRP, HGBRP, GLURP, CLRP, NARP, BGRP, KRP, CARP #### [address] [address] Basophils/100 WBC (Bld) 0.5 % Normal 0.0-2.5 A [facility] ([place]) Comment on above: Performed By: #### H CTRP, HGBRP, GLURP, CLRP, NARP, BGRP, KRP, CARP #### [address] [address] Eosinophil, Absolute 0.7 10 3/mcL Normal 0.0-0.7 [facility] ([place]) Comment on above: Performed By: #### H CTRP, HGBRP, GLURP, CLRP, NARP, BGRP, KRP, CARP #### [address] [address] Eosinophils/100 WBC (Bld) 4.1 % Normal 0.0-6.0 [facility] ([place]) Comment on above: Performed By: #### H CTRP, HGBRP, GLURP, CLRP, NARP, BGRP, KRP, CARP #### [address] [address] Lymphocyte, Absolute 2.5 10 3/mcL Normal 0.9-4.3 [facility] ([place]) Comment on above: Performed By: #### H CTRP, HGBRP, GLURP, CLRP, NARP, BGRP, KRP, CARP #### [address] [address] Lymphocytes/100 WBC (Bld) 14.6 % Low 20.0-40.0 [facility] ([place]) Comment on above: Performed By: #### H CTRP, HGBRP, GLURP, CLRP, NARP, BGRP, KRP, CARP #### [address] [address] Monocyte, Absolute 1.2 10 3/mcL Normal 0.1-1.4 [facility] ([place]) Comment on above: Performed By: #### H CTRP, HGBRP, GLURP, CLRP, NARP, BGRP, KRP, CARP #### [address] [address] Monocytes/100 WBC (Bld) 6.8 % Normal 2.0-13.0 [facility] ([place]) Comment on above: Performed By: #### H CTRP, HGBRP, GLURP, CLRP, NARP, BGRP, KRP, CARP #### [address] [address] Neutrophils/100 WBC (Bld) 74.0 % Normal 50.0-75.0 [facility] ([place]) Comment on above: Performed By: #### H CTRP, HGBRP, GLURP, CLRP, NARP, BGRP, KRP, CARP #### [address] [address] .GFRon 11-29-2021 GFR Non- >60 Normal [facility] ([place]) Comment on above: Result Comment: GFR Population [...] GLURP, CLRP, NARP, BGRP, KRP, CARP #### [address] [address] GFR >60 Normal [facility] ([place]) Comment on above: Result Comment: GFR Population [...] GLURP, CLRP, NARP, BGRP, KRP, CARP #### [address] [address] .NEUABSon 11-29-2021 Neutrophil, Absolute 12.4 10 3/mcL High 2.3-8.1 [facility] ([place]) Comment on above: Performed By: #### H CTRP, HGBRP, GLURP, CLRP, NARP, BGRP, KRP, CARP #### [address] [address] BMPon 11-29-2021 BUN/Creatinine Ratio 23.2 ratio High 10.0-22.0 [facility] ([place]) Comment on above: Performed By: #### H CTRP, HGBRP, GLURP, CLRP, NARP, BGRP, KRP, CARP #### [address] [address] Calcium [Mass/Vol] 9.4 mg/dL Normal 8.7-10.4 [facility] ([place]) Comment on above: Performed By: #### H CTRP, HGBRP, GLURP, CLRP, NARP, BGRP, KRP, CARP #### [address] [address] Chloride [Moles/Vol] 92 mmol/L Low 98-110 [facility] ([place]) Comment on above: Performed By: #### H CTRP, HGBRP, GLURP, CLRP, NARP, BGRP, KRP, CARP #### [address] [address] CO2 [Moles/Vol] 34 mmol/L High 22-32 [facility] ([place]) Comment on above: Performed By: #### H CTRP, HGBRP, GLURP, CLRP, NARP, BGRP, KRP, CARP #### [address] [address] Creatinine [Mass/Vol] 0.82 mg/dL Normal 0.50-1.20 [facility] ([place]) Comment on above: Performed By: #### H CTRP, HGBRP, GLURP, CLRP, NARP, BGRP, KRP, CARP #### [address] [address] Electrolyte Balance 8.0 mEq/L Normal 4.0-15.0 [facility] ([place]) Comment on above: Performed By: #### H CTRP, HGBRP, GLURP, CLRP, NARP, BGRP, KRP, CARP #### [place] [address] Glucose [Mass/Vol] 168 mg/dL High 82-115 [facility] ([place]) Comment on above: Performed By: #### H CTRP, HGBRP, GLURP, CLRP, NARP, BGRP, KRP, CARP #### [place] [id number] Potassium [Moles/Vol] 3.9 mmol/L Normal 3.5-5.0 [facility] ([place]) Comment on above: Performed By: #### H CTRP, HGBRP, GLURP, CLRP, NARP, BGRP, KRP, CARP #### [place] [address] Sodium [Moles/Vol] 134 mmol/L Low 136-145 [facility] ([place]) Comment on above: Performed By: #### H CTRP, HGBRP, GLURP, CLRP, NARP, BGRP, KRP, CARP #### [place] [id number] Urea nitrogen [Mass/Vol] 19.0 mg/dL Normal 8.0-22.0 [facility] ([place]) Comment on above: Performed By: #### H CTRP, HGBRP, GLURP, CLRP, NARP, BGRP, KRP, CARP #### [address] [address] CBCon 11-29-2021 Erythrocyte distribution width (RBC) [Ratio] 14.2 % Normal 11.5-15.5 [facility] ([place]) Comment on above: Performed By: #### H CTRP, HGBRP, GLURP, CLRP, NARP, BGRP, KRP, CARP #### [place] [id number] Hematocrit (Bld) [Volume fraction] 34.6 % Normal 34.0-46.0 [facility] ([place]) Comment on above: Performed By: #### H CTRP, HGBRP, GLURP, CLRP, NARP, BGRP, KRP, CARP #### [place] [address] Hgb 11.4 G/dL Low 12.0-16.0 [facility] ([place]) Comment on above: Performed By: #### H CTRP, HGBRP, GLURP, CLRP, NARP, BGRP, KRP, CARP #### [place] [address] MCH (RBC) [Entitic mass] 29.7 pg Normal 27.0-33.0 [facility] ([place]) Comment on above: Performed By: #### H CTRP, HGBRP, GLURP, CLRP, NARP, BGRP, KRP, CARP #### [place] [address] MCHC 32.9 G/dL Normal 32.0-36.0 [facility] ([place]) Comment on above: Performed By: #### H CTRP, HGBRP, GLURP, CLRP, NARP, BGRP, KRP, CARP #### [place] [address] MCV (RBC) [Entitic vol] 90.5 fL Normal 80.0-99.0 A [facility] ([place]) Comment on above: Performed By: #### H CTRP, HGBRP, GLURP, CLRP, NARP, BGRP, KRP, CARP #### [place] [address] Platelet 365 10 3/mcL Normal 150-450 [facility] ([place]) Comment on above: Performed By: #### H CTRP, HGBRP, GLURP, CLRP, NARP, BGRP, KRP, CARP #### [place] [address] Platelet mean volume (Bld) [Entitic vol] 8.1 fL Normal 6.6-10.5 [facility] ([place]) Comment on above: Performed By: #### H CTRP, HGBRP, GLURP, CLRP, NARP, BGRP, KRP, CARP #### [place] [address] RBC 3.82 10 6/mcL Low 4.10-5.30 [facility] ([place]) Comment on above: Performed By: #### H CTRP, HGBRP, GLURP, CLRP, NARP, BGRP, KRP, CARP #### [facility] [address] [place] [address] WBC 16.8 10 3/mcL High 4.5-10.8 [facility] ([place]) Comment on above: Performed By: #### H CTRP, HGBRP, GLURP, CLRP, NARP, BGRP, KRP, CARP #### [facility] [address] [place] [id number] LABORATORYOrdered By: Dayo Sanabria on 11-29-2021 Blood Glucose Testing Reason Routine (11/29/21 11:55 AM) [facility] Work Phone: Glucose [Mass/Vol] 164 mg/dL Invalid Interpretation Code 82 - 115 mg/dL [facility] Work Phone: Comment on above: Result Comment: LARS Buckley LABORATORYOrdered By: Rodney Nam on 11-29-2021 Blood Glucose Testing Reason Routine (11/29/21 7:28 AM) [facility] Work Phone: Glucose [Mass/Vol] 174 mg/dL Invalid Interpretation Code 82 - 115 mg/dL [facility] Work Phone: LABORATORYOrdered By: SYSTEM SYSTEM on [...] Basophil, Absolute 0.1 10 3/mcL Normal 0.0-0.3 [facility] ([place]) Comment on above: Performed By: #### H CTRP, HGBRP, GLURP, CLRP, NARP, BGRP, KRP, CARP #### [address] [address] Basophils/100 WBC (Bld) 0.8 % Normal 0.0-2.5 A [facility], [facility] ([place]) Comment on above: Performed By: #### H CTRP, HGBRP, GLURP, CLRP, NARP, BGRP, KRP, CARP #### [address] [address] Eosinophil, Absolute 0.4 10 3/mcL Normal 0.0-0.7 [facility] ([place]) Comment on above: Performed By: #### H CTRP, HGBRP, GLURP, CLRP, NARP, BGRP, KRP, CARP #### [address] [address] Eosinophils/100 WBC (Bld) 2.9 % Normal 0.0-6.0 [facility] ([place]) Comment on above: Performed By: #### H CTRP, HGBRP, GLURP, CLRP, NARP, BGRP, KRP, CARP #### [address] [address] Lymphocyte, Absolute 2.0 10 3/mcL Normal 0.9-4.3 [facility] ([place]) Comment on above: Performed By: #### H CTRP, HGBRP, GLURP, CLRP, NARP, BGRP, KRP, CARP #### [address] [address] Lymphocytes/100 WBC (Bld) 13.5 % Low 20.0-40.0 [facility] ([place]) Comment on above: Performed By: #### H CTRP, HGBRP, GLURP, CLRP, NARP, BGRP, KRP, CARP #### [address] [address] Monocyte, Absolute 1.1 10 3/mcL Normal 0.1-1.4 [facility] ([place]) Comment on above: Performed By: #### H CTRP, HGBRP, GLURP, CLRP, NARP, BGRP, KRP, CARP #### [address] [address] Monocytes/100 WBC (Bld) 7.7 % Normal 2.0-13.0 [facility] ([place]) Comment on above: Performed By: #### H CTRP, HGBRP, GLURP, CLRP, NARP, BGRP, KRP, CARP #### [address] [address] Neutrophils/100 WBC (Bld) 75.1 % High 50.0-75.0 [facility] ([place]) Comment on above: Performed By: #### H CTRP, HGBRP, GLURP, CLRP, NARP, BGRP, KRP, CARP #### [address] [address] .GFRon 11-28-2021 GFR >60 Normal [facility] ([place]) Comment on above: Result Comment: GFR Population [...] GLURP, CLRP, NARP, BGRP, KRP, CARP #### [place] [address] GFR Non- >60 Normal [facility] ([place]) Comment on above: Result Comment: GFR Population [...] GLURP, CLRP, NARP, BGRP, KRP, CARP #### [address] [address] .NEUABSon 11-28-2021 Neutrophil, Absolute 11.2 10 3/mcL High 2.3-8.1 A [facility] ([place]) Comment on above: Performed By: #### H CTRP, HGBRP, GLURP, CLRP, NARP, BGRP, KRP, CARP #### [address] [address] [facility] 11-28-2021 Barometric Pressure 701 mmHg Normal [facility] ([place]) Comment on above: Performed By: #### H CTRP, HGBRP, GLURP, CLRP, NARP, BGRP, KRP, CARP #### [address] [address] Base excess Calc (Bld) [Moles/Vol] 9.8 mmol/L Normal [facility] ([place]) Comment on above: Performed By: #### H CTRP, HGBRP, GLURP, CLRP, NARP, BGRP, KRP, CARP #### [address] [address] CO2 [Moles/Vol] 36.7 mmol/L High 22.0-30.0 [facility] ([place]) Comment on above: Performed By: #### H CTRP, HGBRP, GLURP, CLRP, NARP, BGRP, KRP, CARP #### [address] [address] HCO3 (Bld) [Moles/Vol] 35.1 mmol/L High 21.0-29.0 A [facility] ([place]) Comment on above: Performed By: #### H CTRP, HGBRP, GLURP, CLRP, NARP, BGRP, KRP, CARP #### [address] [address] Oxygen (Bld) [Partial pressure] 70.5 mm[Hg] Low 74.0-108.0 [facility] ([place]) Comment on above: Performed By: #### H CTRP, HGBRP, GLURP, CLRP, NARP, BGRP, KRP, CARP #### [address] [address] Oxygen saturation in Blood 94.9 % Normal 92.0-96.0 [facility] ([place]) Comment on above: Performed By: #### H CTRP, HGBRP, GLURP, CLRP, NARP, BGRP, KRP, CARP #### [address] [address] pCO2 50.4 mmHg High 32.0-46.0 [facility] ([place]) Comment on above: Performed By: #### H CTRP, HGBRP, GLURP, CLRP, NARP, BGRP, KRP, CARP #### [address] [address] pH (Bld) 7.461 [pH] High 7.380-7.460 [facility] ([place]) Comment on above: Performed By: #### H CTRP, HGBRP, GLURP, CLRP, NARP, BGRP, KRP, CARP #### [address] [address] BMPon 11-28-2021 BUN/Creatinine Ratio 23.3 ratio High 10.0-22.0 [facility] ([place]) Comment on above: Performed By: #### H CTRP, HGBRP, GLURP, CLRP, NARP, BGRP, KRP, CARP #### [address] [address] Calcium [Mass/Vol] 9.0 mg/dL Normal 8.7-10.4 [facility] ([place]) Comment on above: Performed By: #### H CTRP, HGBRP, GLURP, CLRP, NARP, BGRP, KRP, CARP #### [address] [address] Chloride [Moles/Vol] 92 mmol/L Low 98-110 [facility] ([place]) Comment on above: Performed By: #### H CTRP, HGBRP, GLURP, CLRP, NARP, BGRP, KRP, CARP #### [address] [address] CO2 [Moles/Vol] 37 mmol/L High 22-32 [facility] ([place]) Comment on above: Performed By: #### H CTRP, HGBRP, GLURP, CLRP, NARP, BGRP, KRP, CARP #### [address] [address] Creatinine [Mass/Vol] 0.90 mg/dL Normal 0.50-1.20 [facility] ([place]) Comment on above: Performed By: #### H CTRP, HGBRP, GLURP, CLRP, NARP, BGRP, KRP, CARP #### [address] [address] Electrolyte Balance 6.0 mEq/L Normal 4.0-15.0 [facility] ([place]) Comment on above: Performed By: #### H CTRP, HGBRP, GLURP, CLRP, NARP, BGRP, KRP, CARP #### [address] [address] Glucose [Mass/Vol] 208 mg/dL High 82-115 [facility] ([place]) Comment on above: Performed By: #### H CTRP, HGBRP, GLURP, CLRP, NARP, BGRP, KRP, CARP #### [address] [address] Potassium [Moles/Vol] 3.7 mmol/L Normal 3.5-5.0 [facility] ([place]) Comment on above: Performed By: #### H CTRP, HGBRP, GLURP, CLRP, NARP, BGRP, KRP, CARP #### [address] [address] Sodium [Moles/Vol] 135 mmol/L Low 136-145 [facility] ([place]) Comment on above: Performed By: #### H CTRP, HGBRP, GLURP, CLRP, NARP, BGRP, KRP, CARP #### [address] [address] Urea nitrogen [Mass/Vol] 21.0 mg/dL Normal 8.0-22.0 [facility] ([place]) Comment on above: Performed By: #### H CTRP, HGBRP, GLURP, CLRP, NARP, BGRP, KRP, CARP #### [address] [address] CBCon 11-28-2021 Erythrocyte distribution width (RBC) [Ratio] 14.1 % Normal 11.5-15.5 [facility] ([place]) Comment on above: Performed By: #### H CTRP, HGBRP, GLURP, CLRP, NARP, BGRP, KRP, CARP #### [place] [address] Hematocrit (Bld) [Volume fraction] 34.4 % Normal 34.0-46.0 [facility] ([place]) Comment on above: Performed By: #### H CTRP, HGBRP, GLURP, CLRP, NARP, BGRP, KRP, CARP #### [place] [address] Hgb 11.2 G/dL Low 12.0-16.0 [facility] ([place]) Comment on above: Performed By: #### H CTRP, HGBRP, GLURP, CLRP, NARP, BGRP, KRP, CARP #### [place] [address] MCH (RBC) [Entitic mass] 29.5 pg Normal 27.0-33.0 [facility] ([place]) Comment on above: Performed By: #### H CTRP, HGBRP, GLURP, CLRP, NARP, BGRP, KRP, CARP #### [place] [address] MCHC 32.6 G/dL Normal 32.0-36.0 [facility] ([place]) Comment on above: Performed By: #### H CTRP, HGBRP, GLURP, CLRP, NARP, BGRP, KRP, CARP #### [place] [id number] MCV (RBC) [Entitic vol] 90.5 fL Normal 80.0-99.0 [facility] ([place]) Comment on above: Performed By: #### H CTRP, HGBRP, GLURP, CLRP, NARP, BGRP, KRP, CARP #### [place] [address] Platelet 353 10 3/mcL Normal 150-450 [facility] ([place]) Comment on above: Performed By: #### H CTRP, HGBRP, GLURP, CLRP, NARP, BGRP, KRP, CARP #### [place] [address] Platelet mean volume (Bld) [Entitic vol] 7.9 fL Normal 6.6-10.5 [facility] ([place]) Comment on above: Performed By: #### H CTRP, HGBRP, GLURP, CLRP, NARP, BGRP, KRP, CARP #### [place] [address] RBC 3.80 10 6/mcL Low 4.10-5.30 [facility] ([place]) Comment on above: Performed By: #### H CTRP, HGBRP, GLURP, CLRP, NARP, BGRP, KRP, CARP #### [place] [address] WBC 14.9 10 3/mcL High 4.5-10.8 [facility] ([place]) Comment on above: Performed By: #### H CTRP, HGBRP, GLURP, CLRP, NARP, BGRP, KRP, CARP #### [place] [address] CVFLURVon 11-28-2021 Date of Onset [id number] Invalid Interpretation Code [facility] ([place]) Comment on above: Performed By: #### H CTRP, HGBRP, GLURP, CLRP, NARP, BGRP, KRP, CARP #### [place] [address] Employed in Healthcare No Normal [facility] ([place]) Comment on above: Performed By: #### H CTRP, HGBRP, GLURP, CLRP, NARP, BGRP, KRP, CARP #### [place] [address] First Test No Normal [facility] ([place]) Comment on above: Performed By: #### H CTRP, HGBRP, GLURP, CLRP, NARP, BGRP, KRP, CARP #### [place] [address] FLU A PCR Negative Normal Negative [facility] ([place]) Comment on above: Result Comment: Note s Performed By: #### H CTRP, HGBRP, GLURP, CLRP, NARP, BGRP, KRP, CARP #### [place] [address] FLU B PCR Negative Normal Negative [facility] ([place]) Comment on above: Result Comment: Note s Performed By: #### H CTRP, HGBRP, GLURP, CLRP, NARP, BGRP, KRP, CARP #### [place] [address] Hospitalized Yes [facility] ([place]) Comment on above: Performed By: #### H CTRP, HGBRP, GLURP, CLRP, NARP, BGRP, KRP, CARP #### [place] [address] ICU No [facility] ([place]) Comment on above: Performed By: #### H CTRP, HGBRP, GLURP, CLRP, NARP, BGRP, KRP, CARP #### [place] [address] Not [facility] ([place]) Comment on above: Performed By: #### H CTRP, HGBRP, GLURP, CLRP, NARP, BGRP, KRP, CARP #### [place] [address] Resides in Congregate Care Setting No [facility] ([place]) Comment on above: Performed By: #### H CTRP, HGBRP, GLURP, CLRP, NARP, BGRP, KRP, CARP #### [place] [address] RSV PCR Negative Normal Negative [facility] ([place]) Comment on above: Result Comment: Note s Performed By: #### H CTRP, HGBRP, GLURP, CLRP, NARP, BGRP, KRP, CARP #### [address] [address] SARS-CoV-2 (COVID-19) RNA SLOAN+probe Ql (Unsp spec) Negative Normal Negative [facility] ([place]) Comment on above: Result Comment: Note s [...] GLURP, CLRP, NARP, BGRP, KRP, CARP #### [address] [address] Symptomatic as Defined by CDC No Normal [facility] ([place]) Comment on above: Performed By: #### H CTRP, HGBRP, GLURP, CLRP, NARP, BGRP, KRP, CARP #### [address] [address] LABORATORYOrdered By: Coleen Mckeon on 11-28-2021 Glucose [Mass/Vol] 159 mg/dL Invalid Interpretation Code 82 - 115 mg/dL [facility] Work Phone: LABORATORYOrdered By: Betty Awad on 11-28-2021 Date of Onset [id number] Invalid Interpretation Code AH Auto Viro/Sero SS [...] Glucose Testing Reason Routine (11/28/21 4:40 PM) [facility] Work Phone: LABORATORYOrdered By: SYSTEM SYSTEM on [...] 11/28/2021 8:13:29 AM Ordering Provider: KAELYN Mercado [facility] ([place]) .Auto Diffon 11-27-2021 Basophil, Absolute 0.1 10 3/mcL Normal 0.0-0.3 [facility] ([place]) Comment on above: Performed By: #### H CTRP, HGBRP, GLURP, CLRP, NARP, BGRP, KRP, CARP #### [address] [address] Basophils/100 WBC (Bld) 0.5 % Normal 0.0-2.5 A [facility] ([place]) Comment on above: Performed By: #### H CTRP, HGBRP, GLURP, CLRP, NARP, BGRP, KRP, CARP #### [address] [address] Eosinophil, Absolute 0.4 10 3/mcL Normal 0.0-0.7 [facility] ([place]) Comment on above: Performed By: #### H CTRP, HGBRP, GLURP, CLRP, NARP, BGRP, KRP, CARP #### [address] [address] Eosinophils/100 WBC (Bld) 2.0 % Normal 0.0-6.0 [facility] ([place]) Comment on above: Performed By: #### H CTRP, HGBRP, GLURP, CLRP, NARP, BGRP, KRP, CARP #### [address] [address] Lymphocyte, Absolute 2.2 10 3/mcL Normal 0.9-4.3 [facility] ([place]) Comment on above: Performed By: #### H CTRP, HGBRP, GLURP, CLRP, NARP, BGRP, KRP, CARP #### [address] [address] Lymphocytes/100 WBC (Bld) 11.6 % Low 20.0-40.0 [facility] ([place]) Comment on above: Performed By: #### H CTRP, HGBRP, GLURP, CLRP, NARP, BGRP, KRP, CARP #### [address] [address] Monocyte, Absolute 1.3 10 3/mcL Normal 0.1-1.4 [facility] ([place]) Comment on above: Performed By: #### H CTRP, HGBRP, GLURP, CLRP, NARP, BGRP, KRP, CARP #### [address] [address] Monocytes/100 WBC (Bld) 6.7 % Normal 2.0-13.0 [facility] ([place]) Comment on above: Performed By: #### H CTRP, HGBRP, GLURP, CLRP, NARP, BGRP, KRP, CARP #### [address] [address] Neutrophils/100 WBC (Bld) 79.2 % High 50.0-75.0 [facility] ([place]) Comment on above: Performed By: #### H CTRP, HGBRP, GLURP, CLRP, NARP, BGRP, KRP, CARP #### [address] [address] .GFRon 11-27-2021 GFR >60 Normal [facility] ([place]) Comment on above: Result Comment: GFR Population [...] GLURP, CLRP, NARP, BGRP, KRP, CARP #### [place] [address] GFR Non- >60 Normal [facility] ([place]) Comment on above: Result Comment: GFR Population [...] GLURP, CLRP, NARP, BGRP, KRP, CARP #### [address] [address] .NEUABSon 11-27-2021 Neutrophil, Absolute 15.1 10 3/mcL High 2.3-8.1 A [facility] ([place]) Comment on above: Performed By: #### H CTRP, HGBRP, GLURP, CLRP, NARP, BGRP, KRP, CARP #### [address] [address] BGon 11-27-2021 Barometric Pressure 733 mmHg Normal [facility] ([place]) Comment on above: Performed By: #### H CTRP, HGBRP, GLURP, CLRP, NARP, BGRP, KRP, CARP #### [place] [address] Base excess Calc (Bld) [Moles/Vol] 10.2 mmol/L Normal [facility] ([place]) Comment on above: Performed By: #### H CTRP, HGBRP, GLURP, CLRP, NARP, BGRP, KRP, CARP #### [place] [address] CO2 [Moles/Vol] 38.8 mmol/L High 22.0-30.0 [facility] ([place]) Comment on above: Performed By: #### H CTRP, HGBRP, GLURP, CLRP, NARP, BGRP, KRP, CARP #### [place] [address] HCO3 (Bld) [Moles/Vol] 37.1 mmol/L High 21.0-29.0 A [facility] ([place]) Comment on above: Performed By: #### H CTRP, HGBRP, GLURP, CLRP, NARP, BGRP, KRP, CARP #### [place] [phone] Oxygen (Bld) [Partial pressure] 74.1 mm[Hg] Normal 74.0-108.0 [facility] ([place]) Comment on above: Performed By: #### H CTRP, HGBRP, GLURP, CLRP, NARP, BGRP, KRP, CARP #### [place] [address] Oxygen saturation in Blood 94.8 % Normal 92.0-96.0 [facility] ([place]) Comment on above: Performed By: #### H CTRP, HGBRP, GLURP, CLRP, NARP, BGRP, KRP, CARP #### [place] [id number] pCO2 58.3 mmHg High 32.0-46.0 [facility] ([place]) Comment on above: Performed By: #### H CTRP, HGBRP, GLURP, CLRP, NARP, BGRP, KRP, CARP #### [place] [address] pH (Bld) 7.421 [pH] Normal 7.380-7.460 [facility] ([place]) Comment on above: Performed By: #### H CTRP, HGBRP, GLURP, CLRP, NARP, BGRP, KRP, CARP #### [place] [address] CBCon 11-27-2021 Erythrocyte distribution width (RBC) [Ratio] 13.6 % Normal 11.5-15.5 [facility] ([place]) Comment on above: Performed By: #### H CTRP, HGBRP, GLURP, CLRP, NARP, BGRP, KRP, CARP #### [place] [address] Hematocrit (Bld) [Volume fraction] 35.1 % Normal 34.0-46.0 [facility] ([place]) Comment on above: Performed By: #### H CTRP, HGBRP, GLURP, CLRP, NARP, BGRP, KRP, CARP #### [place] [address] Hgb 11.6 G/dL Low 12.0-16.0 [facility] ([place]) Comment on above: Performed By: #### H CTRP, HGBRP, GLURP, CLRP, NARP, BGRP, KRP, CARP #### [place] [address] MCH (RBC) [Entitic mass] 29.7 pg Normal 27.0-33.0 [facility] ([place]) Comment on above: Performed By: #### H CTRP, HGBRP, GLURP, CLRP, NARP, BGRP, KRP, CARP #### [place] [address] MCHC 32.9 G/dL Normal 32.0-36.0 [facility] ([place]) Comment on above: Performed By: #### H CTRP, HGBRP, GLURP, CLRP, NARP, BGRP, KRP, CARP #### [place] [address] MCV (RBC) [Entitic vol] 90.3 fL Normal 80.0-99.0 A [facility] ([place]) Comment on above: Performed By: #### H CTRP, HGBRP, GLURP, CLRP, NARP, BGRP, KRP, CARP #### [place] [address] Platelet 322 10 3/mcL Normal 150-450 [facility] ([place]) Comment on above: Performed By: #### H CTRP, HGBRP, GLURP, CLRP, NARP, BGRP, KRP, CARP #### [place] [address] Platelet mean volume (Bld) [Entitic vol] 8.0 fL Normal 6.6-10.5 [facility] ([place]) Comment on above: Performed By: #### H CTRP, HGBRP, GLURP, CLRP, NARP, BGRP, KRP, CARP #### [place] [address] RBC 3.89 10 6/mcL Low 4.10-5.30 [facility] ([place]) Comment on above: Performed By: #### H CTRP, HGBRP, GLURP, CLRP, NARP, BGRP, KRP, CARP #### [place] [address] WBC 19.1 10 3/mcL High 4.5-10.8 [facility] ([place]) Comment on above: Performed By: #### H CTRP, HGBRP, GLURP, CLRP, NARP, BGRP, KRP, CARP #### [address] [address] CMPon 11-27-2021 Albumin Level 3.4 G/dL Normal 3.2-4.8 [facility] ([place]) Comment on above: Performed By: #### H CTRP, HGBRP, GLURP, CLRP, NARP, BGRP, KRP, CARP #### [address] [address] Albumin/Globulin [Mass ratio] 1.0 {ratio} Normal 0.9-1.6 [facility] ([place]) Comment on above: Performed By: #### H CTRP, HGBRP, GLURP, CLRP, NARP, BGRP, KRP, CARP #### [address] [address] ALP [Catalytic activity/Vol] 79 U/L Normal 38-126 [facility] ([place]) Comment on above: Performed By: #### H CTRP, HGBRP, GLURP, CLRP, NARP, BGRP, KRP, CARP #### [address] [address] ALT [Catalytic activity/Vol] 20 U/L Normal 10-49 [facility] ([place]) Comment on above: Performed By: #### H CTRP, HGBRP, GLURP, CLRP, NARP, BGRP, KRP, CARP #### [address] [address] AST [Catalytic activity/Vol] 20 U/L Normal 8-34 [facility] ([place]) Comment on above: Performed By: #### H CTRP, HGBRP, GLURP, CLRP, NARP, BGRP, KRP, CARP #### [address] [address] Bili Total 0.80 mg/dL Normal 0.20-1.20 [facility] ([place]) Comment on above: Result Comment: Use of this assay is not recommended for patients undergoing treatment with eltrombopag due to the potential for falsely elevated results. Performed By: #### H CTRP, HGBRP, GLURP, CLRP, NARP, BGRP, KRP, CARP #### [address] [address] BUN/Creatinine Ratio 21.4 ratio Normal 10.0-22.0 [facility] ([place]) Comment on above: Performed By: #### H CTRP, HGBRP, GLURP, CLRP, NARP, BGRP, KRP, CARP #### [address] [address] Calcium [Mass/Vol] 9.0 mg/dL Normal 8.7-10.4 [facility] ([place]) Comment on above: Performed By: #### H CTRP, HGBRP, GLURP, CLRP, NARP, BGRP, KRP, CARP #### [address] [address] Chloride [Moles/Vol] 96 mmol/L Low 98-110 [facility] ([place]) Comment on above: Performed By: #### H CTRP, HGBRP, GLURP, CLRP, NARP, BGRP, KRP, CARP #### [address] [address] CO2 [Moles/Vol] 33 mmol/L High 22-32 [facility] ([place]) Comment on above: Performed By: #### H CTRP, HGBRP, GLURP, CLRP, NARP, BGRP, KRP, CARP #### [address] [address] Creatinine [Mass/Vol] 0.70 mg/dL Normal 0.50-1.20 [facility] ([place]) Comment on above: Performed By: #### H CTRP, HGBRP, GLURP, CLRP, NARP, BGRP, KRP, CARP #### [address] [address] Electrolyte Balance 6.0 mEq/L Normal 4.0-15.0 [facility] ([place]) Comment on above: Performed By: #### H CTRP, HGBRP, GLURP, CLRP, NARP, BGRP, KRP, CARP #### [address] [address] Globulin 3.4 G/dL Normal 1.5-3.8 [facility] ([place]) Comment on above: Performed By: #### H CTRP, HGBRP, GLURP, CLRP, NARP, BGRP, KRP, CARP #### [address] [address] Glucose [Mass/Vol] 142 mg/dL High 82-115 [facility] ([place]) Comment on above: Performed By: #### H CTRP, HGBRP, GLURP, CLRP, NARP, BGRP, KRP, CARP #### [address] [address] Potassium [Moles/Vol] 4.1 mmol/L Normal 3.5-5.0 [facility] ([place]) Comment on above: Performed By: #### H CTRP, HGBRP, GLURP, CLRP, NARP, BGRP, KRP, CARP #### [address] [address] Sodium [Moles/Vol] 135 mmol/L Low 136-145 [facility] ([place]) Comment on above: Performed By: #### H CTRP, HGBRP, GLURP, CLRP, NARP, BGRP, KRP, CARP #### [address] [address] Total Protein 6.8 G/dL Normal 5.7-8.2 [facility] ([place]) Comment on above: Result Comment: No te - New Reference Range in effect 19 Performed By: #### H CTRP, HGBRP, GLURP, CLRP, NARP, BGRP, KRP, CARP #### [address] [address] Urea nitrogen [Mass/Vol] 15.0 mg/dL Normal 8.0-22.0 [facility] ([place]) Comment on above: Performed By: #### H CTRP, HGBRP, GLURP, CLRP, NARP, BGRP, KRP, CARP #### [place] [address] LABORATORYOrdered By: SYSTEM SYSTEM on 11-27-2021 Albumin [...] 11/27/2021 7:51:49 AM Ordering Provider: NAT Mercado [facility] ([place]) .Auto Diffon 11-26-2021 Basophil, Absolute 0.1 10 3/mcL Normal 0.0-0.3 [facility] ([place]) Basophils/100 WBC (Bld) 0.4 % Normal 0.0-2.5 A [facility]) Eosinophil, Absolute 0.1 10 3/mcL Normal 0.0-0.7 [facility] ([place]) Eosinophils/100 WBC (Bld) 0.7 % Normal 0.0-6.0 [facility] ([place]) Lymphocyte, Absolute 2.2 10 3/mcL Normal 0.9-4.3 [facility] ([place]) Lymphocytes/100 WBC (Bld) 11.0 % Low 20.0-40.0 [facility] ([place]) Monocyte, Absolute 1.5 10 3/mcL High 0.1-1.4 [facility] ([place]) Monocytes/100 WBC (Bld) 7.4 % Normal 2.0-13.0 A [facility] ([place]) Neutrophils/100 WBC (Bld) 80.5 % High 50.0-75.0 [facility] ([place]) Basophil, Absolute 0.1 10 3/mcL Normal 0.0-0.3 [facility] ([place]) Comment on above: Performed By: #### H CTRP, HGBRP, GLURP, CLRP, NARP, BGRP, KRP, CARP #### [address] [address] Basophils/100 WBC (Bld) 0.4 % Normal 0.0-2.5 A [facility] ([place]) Comment on above: Performed By: #### H CTRP, HGBRP, GLURP, CLRP, NARP, BGRP, KRP, CARP #### [address] [address] Eosinophil, Absolute 0.1 10 3/mcL Normal 0.0-0.7 [facility] ([place]) Comment on above: Performed By: #### H CTRP, HGBRP, GLURP, CLRP, NARP, BGRP, KRP, CARP #### [address] [address] Eosinophils/100 WBC (Bld) 0.5 % Normal 0.0-6.0 [facility] ([place]) Comment on above: Performed By: #### H CTRP, HGBRP, GLURP, CLRP, NARP, BGRP, KRP, CARP #### [address] [address] Lymphocyte, Absolute 2.0 10 3/mcL Normal 0.9-4.3 [facility] ([place]) Comment on above: Performed By: #### H CTRP, HGBRP, GLURP, CLRP, NARP, BGRP, KRP, CARP #### [address] [address] Lymphocytes/100 WBC (Bld) 10.0 % Low 20.0-40.0 [facility] ([place]) Comment on above: Performed By: #### H CTRP, HGBRP, GLURP, CLRP, NARP, BGRP, KRP, CARP #### [address] [address] Monocyte, Absolute 1.5 10 3/mcL High 0.1-1.4 [facility] ([place]) Comment on above: Performed By: #### H CTRP, HGBRP, GLURP, CLRP, NARP, BGRP, KRP, CARP #### [address] [address] Monocytes/100 WBC (Bld) 7.5 % Normal 2.0-13.0 A [facility], [facility] ([place]) Comment on above: Performed By: #### H CTRP, HGBRP, GLURP, CLRP, NARP, BGRP, KRP, CARP #### [address] [address] Neutrophils/100 WBC (Bld) 81.6 % High 50.0-75.0 [facility] ([place]) Comment on above: Performed By: #### H CTRP, HGBRP, GLURP, CLRP, NARP, BGRP, KRP, CARP #### [address] [address] .GFRon 11-26-2021 GFR >60 Normal [facility] ([place]) Comment on above: Result Comment: GFR Population [...] GLURP, CLRP, NARP, BGRP, KRP, CARP #### [address] [address] GFR Non- >60 Normal [facility] ([place]) Comment on above: Result Comment: GFR Population [...] GLURP, CLRP, NARP, BGRP, KRP, CARP #### [address] [address] .NEUABSon 11-26-2021 Neutrophil, Absolute 16.0 10 3/mcL High 2.3-8.1 A [facility] ([place]) Neutrophil, Absolute 16.6 10 3/mcL High 2.3-8.1 A [facility] ([place]) Comment on above: Performed By: #### H CTRP, HGBRP, GLURP, CLRP, NARP, BGRP, KRP, CARP #### [address] [address] BGon 11-26-2021 Barometric Pressure 734 mmHg Normal [facility] ([place]) Comment on above: Performed By: #### H CTRP, HGBRP, GLURP, CLRP, NARP, BGRP, KRP, CARP #### [address] [address] Base excess Calc (Bld) [Moles/Vol] 11.2 mmol/L Normal [facility] ([place]) Comment on above: Performed By: #### H CTRP, HGBRP, GLURP, CLRP, NARP, BGRP, KRP, CARP #### [address] [address] CO2 [Moles/Vol] 39.8 mmol/L High 22.0-30.0 [facility] ([place]) Comment on above: Performed By: #### H CTRP, HGBRP, GLURP, CLRP, NARP, BGRP, KRP, CARP #### [address] [address] HCO3 (Bld) [Moles/Vol] 38.0 mmol/L High 21.0-29.0 A [facility] ([place]) Comment on above: Performed By: #### H CTRP, HGBRP, GLURP, CLRP, NARP, BGRP, KRP, CARP #### [address] [address] Oxygen (Bld) [Partial pressure] 68.4 mm[Hg] Low 74.0-108.0 [facility] ([place]) Comment on above: Performed By: #### H CTRP, HGBRP, GLURP, CLRP, NARP, BGRP, KRP, CARP #### [address] [address] Oxygen saturation in Blood 93.8 % Normal 92.0-96.0 [facility] ([place]) Comment on above: Performed By: #### H CTRP, HGBRP, GLURP, CLRP, NARP, BGRP, KRP, CARP #### [address] [address] pCO2 57.9 mmHg High 32.0-46.0 [facility] ([place]) Comment on above: Performed By: #### H CTRP, HGBRP, GLURP, CLRP, NARP, BGRP, KRP, CARP #### [address] [address] pH (Bld) 7.435 [pH] Normal 7.380-7.460 [facility] ([place]) Comment on above: Performed By: #### H CTRP, HGBRP, GLURP, CLRP, NARP, BGRP, KRP, CARP #### [address] [address] Barometric Pressure 711 mmHg Normal [facility] ([place]) Comment on above: Performed By: #### H CTRP, HGBRP, GLURP, CLRP, NARP, BGRP, KRP, CARP #### [address] [address] Base excess Calc (Bld) [Moles/Vol] 3.2 mmol/L Normal [facility] ([place]) Comment on above: Performed By: #### H CTRP, HGBRP, GLURP, CLRP, NARP, BGRP, KRP, CARP #### [address] [address] CO2 [Moles/Vol] 30.3 mmol/L High 22.0-30.0 [facility] ([place]) Comment on above: Performed By: #### H CTRP, HGBRP, GLURP, CLRP, NARP, BGRP, KRP, CARP #### [address] [address] HCO3 (Bld) [Moles/Vol] 28.8 mmol/L Normal 21.0-29.0 A [facility] ([place]) Comment on above: Performed By: #### H CTRP, HGBRP, GLURP, CLRP, NARP, BGRP, KRP, CARP #### [address] [address] Oxygen (Bld) [Partial pressure] 103.1 mm[Hg] Normal 74.0-108.0 [facility] ([place]) Comment on above: Performed By: #### H CTRP, HGBRP, GLURP, CLRP, NARP, BGRP, KRP, CARP #### [address] [address] Oxygen saturation in Blood 97.9 % High 92.0-96.0 [facility] ([place]) Comment on above: Performed By: #### H CTRP, HGBRP, GLURP, CLRP, NARP, BGRP, KRP, CARP #### [address] [address] pCO2 48.2 mmHg High 32.0-46.0 [facility] ([place]) Comment on above: Performed By: #### H CTRP, HGBRP, GLURP, CLRP, NARP, BGRP, KRP, CARP #### [place] [address] pH (Bld) 7.394 [pH] Normal 7.380-7.460 [facility] ([place]) Comment on above: Performed By: #### H CTRP, HGBRP, GLURP, CLRP, NARP, BGRP, KRP, CARP #### [address] [address] BMPon 11-26-2021 BUN/Creatinine Ratio 26.5 ratio High 10.0-22.0 [facility] ([place]) Comment on above: Performed By: #### H CTRP, HGBRP, GLURP, CLRP, NARP, BGRP, KRP, CARP #### [address] [address] Calcium [Mass/Vol] 8.3 mg/dL Low 8.7-10.4 [facility] ([place]) Comment on above: Performed By: #### H CTRP, HGBRP, GLURP, CLRP, NARP, BGRP, KRP, CARP #### [address] [address] Chloride [Moles/Vol] 98 mmol/L Normal 98-110 [facility] ([place]) Comment on above: Performed By: #### H CTRP, HGBRP, GLURP, CLRP, NARP, BGRP, KRP, CARP #### [address] [address] CO2 [Moles/Vol] 28 mmol/L Normal 22-32 [facility] ([place]) Comment on above: Performed By: #### H CTRP, HGBRP, GLURP, CLRP, NARP, BGRP, KRP, CARP #### [address] [address] Creatinine [Mass/Vol] 0.68 mg/dL Normal 0.50-1.20 [facility] ([place]) Comment on above: Performed By: #### H CTRP, HGBRP, GLURP, CLRP, NARP, BGRP, KRP, CARP #### [address] [address] Electrolyte Balance 7.0 mEq/L Normal 4.0-15.0 [facility] ([place]) Comment on above: Performed By: #### H CTRP, HGBRP, GLURP, CLRP, NARP, BGRP, KRP, CARP #### [address] [address] Glucose [Mass/Vol] 176 mg/dL High 82-115 [facility] ([place]) Comment on above: Performed By: #### H CTRP, HGBRP, GLURP, CLRP, NARP, BGRP, KRP, CARP #### [address] [address] Potassium [Moles/Vol] 4.2 mmol/L Normal 3.5-5.0 [facility] ([place]) Comment on above: Performed By: #### H CTRP, HGBRP, GLURP, CLRP, NARP, BGRP, KRP, CARP #### [address] [address] Sodium [Moles/Vol] 133 mmol/L Low 136-145 [facility] ([place]) Comment on above: Performed By: #### H CTRP, HGBRP, GLURP, CLRP, NARP, BGRP, KRP, CARP #### [address] [address] Urea nitrogen [Mass/Vol] 18.0 mg/dL Normal 8.0-22.0 [facility] ([place]) Comment on above: Performed By: #### H CTRP, HGBRP, GLURP, CLRP, NARP, BGRP, KRP, CARP #### [address] [address] CBCon 11-26-2021 Erythrocyte distribution width (RBC) [Ratio] 14.1 % Normal 11.5-15.5 [facility] ([place]) Hematocrit (Bld) [Volume fraction] 31.3 % Low 34.0-46.0 [facility] ([place]) Hgb 10.5 G/dL Low 12.0-16.0 [facility] ([place]) MCH (RBC) [Entitic mass] 30.1 pg Normal 27.0-33.0 [facility] ([place]) MCHC 33.5 G/dL Normal 32.0-36.0 [facility] ([place]) MCV (RBC) [Entitic vol] 89.8 fL Normal 80.0-99.0 A [facility] ([place]) Platelet 268 10 3/mcL Normal 150-450 [facility] ([place]) Platelet mean volume (Bld) [Entitic vol] 8.4 fL Normal 6.6-10.5 [facility]) RBC 3.49 10 6/mcL Low 4.10-5.30 [facility] ([place]) WBC 19.8 10 3/mcL High 4.5-10.8 [facility] ([place]) Erythrocyte distribution width (RBC) [Ratio] 14.0 % Normal 11.5-15.5 [facility]) Comment on above: Performed By: #### H CTRP, HGBRP, GLURP, CLRP, NARP, BGRP, KRP, CARP #### [address] [address] Hematocrit (Bld) [Volume fraction] 31.7 % Low 34.0-46.0 [facility] ([place]) Comment on above: Performed By: #### H CTRP, HGBRP, GLURP, CLRP, NARP, BGRP, KRP, CARP #### [place] [address] Hgb 10.3 G/dL Low 12.0-16.0 [facility] ([place]) Comment on above: Performed By: #### H CTRP, HGBRP, GLURP, CLRP, NARP, BGRP, KRP, CARP #### [place] [id number] MCH (RBC) [Entitic mass] 29.6 pg Normal 27.0-33.0 [facility] ([place]) Comment on above: Performed By: #### H CTRP, HGBRP, GLURP, CLRP, NARP, BGRP, KRP, CARP #### [place] [address] MCHC 32.7 G/dL Normal 32.0-36.0 [facility] ([place]) Comment on above: Performed By: #### H CTRP, HGBRP, GLURP, CLRP, NARP, BGRP, KRP, CARP #### [place] [address] MCV (RBC) [Entitic vol] 90.7 fL Normal 80.0-99.0 A [facility] ([place]) Comment on above: Performed By: #### H CTRP, HGBRP, GLURP, CLRP, NARP, BGRP, KRP, CARP #### [place] [address] Platelet 243 10 3/mcL Normal 150-450 [facility] ([place]) Comment on above: Performed By: #### H CTRP, HGBRP, GLURP, CLRP, NARP, BGRP, KRP, CARP #### [place] [id number] Platelet mean volume (Bld) [Entitic vol] 8.6 fL Normal 6.6-10.5 [facility] ([place]) Comment on above: Performed By: #### H CTRP, HGBRP, GLURP, CLRP, NARP, BGRP, KRP, CARP #### [place] [address] RBC 3.49 10 6/mcL Low 4.10-5.30 [facility] ([place]) Comment on above: Performed By: #### H CTRP, HGBRP, GLURP, CLRP, NARP, BGRP, KRP, CARP #### [facility] [address] [place] [address] WBC 20.3 10 3/mcL High 4.5-10.8 [facility] ([place]) Comment on above: Performed By: #### H CTRP, HGBRP, GLURP, CLRP, NARP, BGRP, KRP, CARP #### [facility] [address] [place] [address] LABORATORYOrdered By: Nicci erickson on 11-26-2021 Barometric [...] Culture Urine No growth at 48 hours. [facility] Work Phone: UAon 11-26-2021 Color (U) Yellow Normal [facility] ([place]) Comment on above: Performed By: #### H CTRP, HGBRP, GLURP, CLRP, NARP, BGRP, KRP, CARP #### [place] [address] Glucose (U) [Mass/Vol] 100 mg/dL Abnormal Negative [facility] ([place]) Comment on above: Performed By: #### H CTRP, HGBRP, GLURP, CLRP, NARP, BGRP, KRP, CARP #### [place] [address] Ketones Ql (U) 15 mg/dL Abnormal Neg-Trace [facility] ([place]) Comment on above: Performed By: #### H CTRP, HGBRP, GLURP, CLRP, NARP, BGRP, KRP, CARP #### [place] [address] UA Appear Clear Normal Clear [facility] ([place]) Comment on above: Performed By: #### H CTRP, HGBRP, GLURP, CLRP, NARP, BGRP, KRP, CARP #### [place] [address] UA Blood Negative Normal Neg-Trace [facility] ([place]) Comment on above: Performed By: #### H CTRP, HGBRP, GLURP, CLRP, NARP, BGRP, KRP, CARP #### [place] [address] UA Leuk Est Negative Normal Negative [facility] ([place]) Comment on above: Performed By: #### H CTRP, HGBRP, GLURP, CLRP, NARP, BGRP, KRP, CARP #### [address] [address] UA Nitrite Negative Normal Negative [facility] ([place]) Comment on above: Performed By: #### H CTRP, HGBRP, GLURP, CLRP, NARP, BGRP, KRP, CARP #### [place] [address] UA pH 5.0 Normal 5.0 - 8.0 [facility] ([place]) Comment on above: Performed By: #### H CTRP, HGBRP, GLURP, CLRP, NARP, BGRP, KRP, CARP #### [place] [address] UA Protein Negative Normal Negative [facility] ([place]) Comment on above: Performed By: #### H CTRP, HGBRP, GLURP, CLRP, NARP, BGRP, KRP, CARP #### [place] [address] UA Spec Grav 1.015 Normal 1.006-1.029 [facility] ([place]) Comment on above: Performed By: #### H CTRP, HGBRP, GLURP, CLRP, NARP, BGRP, KRP, CARP #### [place] [address] UA Specimen Type Catheter Normal [facility] ([place]) Comment on above: Performed By: #### H CTRP, HGBRP, GLURP, CLRP, NARP, BGRP, KRP, CARP #### [place] [address] UA Urobilinogen 0.2 E.U./dL Normal 0.2-1.0 [facility] ([place]) Comment on above: Performed By: #### H CTRP, HGBRP, GLURP, CLRP, NARP, BGRP, KRP, CARP #### [place] [address] Urobilinogen (U) [Mass/Vol] Negative Normal Neg-Trace [facility] ([place]) Comment on above: Performed By: #### H CTRP, HGBRP, GLURP, CLRP, NARP, BGRP, KRP, CARP #### [place] [address] XR CHEST 1 VIEWon 11-26-2021 XR CHEST [...] 11/26/2021 9:26:00 PM Ordering Provider: AL KOHLER [facility] ([place]) XR CHEST 1 VIEW ORIGINAL EXAMINATION: ONE [...] 11/26/2021 6:50:40 AM Ordering Provider: NAT DUNN [facility] ([place]) .Auto Diffon 11-25-2021 Basophil, Absolute 0.0 10 3/mcL Normal 0.0-0.3 [facility] ([place]) Comment on above: Performed By: #### H CTRP, HGBRP, GLURP, CLRP, NARP, BGRP, KRP, CARP #### [address] [address] Basophils/100 WBC (Bld) 0.2 % Normal 0.0-2.5 A [facility] ([place]) Comment on above: Performed By: #### H CTRP, HGBRP, GLURP, CLRP, NARP, BGRP, KRP, CARP #### [address] [address] Eosinophil, Absolute 0.0 10 3/mcL Normal 0.0-0.7 [facility] ([place]) Comment on above: Performed By: #### H CTRP, HGBRP, GLURP, CLRP, NARP, BGRP, KRP, CARP #### [address] [address] Eosinophils/100 WBC (Bld) 0.2 % Normal 0.0-6.0 [facility] ([place]) Comment on above: Performed By: #### H CTRP, HGBRP, GLURP, CLRP, NARP, BGRP, KRP, CARP #### [address] [address] Lymphocyte, Absolute 2.0 10 3/mcL Normal 0.9-4.3 [facility] ([place]) Comment on above: Performed By: #### H CTRP, HGBRP, GLURP, CLRP, NARP, BGRP, KRP, CARP #### [address] [address] Lymphocytes/100 WBC (Bld) 10.7 % Low 20.0-40.0 [facility] ([place]) Comment on above: Performed By: #### H CTRP, HGBRP, GLURP, CLRP, NARP, BGRP, KRP, CARP #### [address] [address] Monocyte, Absolute 1.7 10 3/mcL High 0.1-1.4 [facility] ([place]) Comment on above: Performed By: #### H CTRP, HGBRP, GLURP, CLRP, NARP, BGRP, KRP, CARP #### [address] [address] Monocytes/100 WBC (Bld) 9.3 % Normal 2.0-13.0 [facility] ([place]) Comment on above: Performed By: #### H CTRP, HGBRP, GLURP, CLRP, NARP, BGRP, KRP, CARP #### [address] [address] Neutrophils/100 WBC (Bld) 79.6 % High 50.0-75.0 [facility] ([place]) Comment on above: Performed By: #### H CTRP, HGBRP, GLURP, CLRP, NARP, BGRP, KRP, CARP #### [address] [address] .GFRon 11-25-2021 GFR Non- >60 Normal [facility] ([place]) Comment on above: Result Comment: GFR Population [...] GLURP, CLRP, NARP, BGRP, KRP, CARP #### [address] [address] GFR >60 Normal [facility] ([place]) Comment on above: Result Comment: GFR Population [...] GLURP, CLRP, NARP, BGRP, KRP, CARP #### [address] [address] .NEUABSon 11-25-2021 Neutrophil, Absolute 14.6 10 3/mcL High 2.3-8.1 A [facility] ([place]) Comment on above: Performed By: #### H CTRP, HGBRP, GLURP, CLRP, NARP, BGRP, KRP, CARP #### [place] [address] BGon 11-25-2021 Barometric Pressure 712 mmHg Normal [facility] ([place]) Comment on above: Performed By: #### H CTRP, HGBRP, GLURP, CLRP, NARP, BGRP, KRP, CARP #### [place] [address] Base excess Calc (Bld) [Moles/Vol] 2.5 mmol/L Normal [facility] ([place]) Comment on above: Performed By: #### H CTRP, HGBRP, GLURP, CLRP, NARP, BGRP, KRP, CARP #### [address] [address] CO2 [Moles/Vol] 28.1 mmol/L Normal 22.0-30.0 [facility] ([place]) Comment on above: Performed By: #### H CTRP, HGBRP, GLURP, CLRP, NARP, BGRP, KRP, CARP #### [place] [id number] HCO3 (Bld) [Moles/Vol] 26.8 mmol/L Normal 21.0-29.0 A [facility] ([place]) Comment on above: Performed By: #### H CTRP, HGBRP, GLURP, CLRP, NARP, BGRP, KRP, CARP #### [place] [address] Oxygen (Bld) [Partial pressure] 72.8 mm[Hg] Low 74.0-108.0 [facility] ([place]) Comment on above: Performed By: #### H CTRP, HGBRP, GLURP, CLRP, NARP, BGRP, KRP, CARP #### [address] [address] Oxygen saturation in Blood 94.9 % Normal 92.0-96.0 [facility] ([place]) Comment on above: Performed By: #### H CTRP, HGBRP, GLURP, CLRP, NARP, BGRP, KRP, CARP #### [address] [address] pCO2 40.3 mmHg Normal 32.0-46.0 [facility] ([place]) Comment on above: Performed By: #### H CTRP, HGBRP, GLURP, CLRP, NARP, BGRP, KRP, CARP #### [address] [address] pH (Bld) 7.441 [pH] Normal 7.380-7.460 [facility] ([place]) Comment on above: Performed By: #### H CTRP, HGBRP, GLURP, CLRP, NARP, BGRP, KRP, CARP #### [address] [address] BMPon 11-25-2021 BUN/Creatinine Ratio 19.7 ratio Normal 10.0-22.0 [facility] ([place]) Comment on above: Performed By: #### H CTRP, HGBRP, GLURP, CLRP, NARP, BGRP, KRP, CARP #### [place] [id number] Calcium [Mass/Vol] 7.9 mg/dL Low 8.7-10.4 [facility] ([place]) Comment on above: Performed By: #### H CTRP, HGBRP, GLURP, CLRP, NARP, BGRP, KRP, CARP #### [place] [id number] Chloride [Moles/Vol] 101 mmol/L Normal 98-110 [facility] ([place]) Comment on above: Performed By: #### H CTRP, HGBRP, GLURP, CLRP, NARP, BGRP, KRP, CARP #### [address] [address] CO2 [Moles/Vol] 26 mmol/L Normal 22-32 [facility] ([place]) Comment on above: Performed By: #### H CTRP, HGBRP, GLURP, CLRP, NARP, BGRP, KRP, CARP #### [address] [address] Creatinine [Mass/Vol] 0.66 mg/dL Normal 0.50-1.20 [facility] ([place]) Comment on above: Performed By: #### H CTRP, HGBRP, GLURP, CLRP, NARP, BGRP, KRP, CARP #### [address] [address] Electrolyte Balance 10.0 mEq/L Normal 4.0-15.0 [facility] ([place]) Comment on above: Performed By: #### H CTRP, HGBRP, GLURP, CLRP, NARP, BGRP, KRP, CARP #### [address] [address] Glucose [Mass/Vol] 89 mg/dL Normal 82-115 [facility] ([place]) Comment on above: Performed By: #### H CTRP, HGBRP, GLURP, CLRP, NARP, BGRP, KRP, CARP #### [address] [address] Potassium [Moles/Vol] 3.8 mmol/L Normal 3.5-5.0 [facility] ([place]) Comment on above: Performed By: #### H CTRP, HGBRP, GLURP, CLRP, NARP, BGRP, KRP, CARP #### [address] [address] Sodium [Moles/Vol] 137 mmol/L Normal 136-145 [facility] ([place]) Comment on above: Performed By: #### H CTRP, HGBRP, GLURP, CLRP, NARP, BGRP, KRP, CARP #### [address] [address] Urea nitrogen [Mass/Vol] 13.0 mg/dL Normal 8.0-22.0 [facility] ([place]) Comment on above: Performed By: #### H CTRP, HGBRP, GLURP, CLRP, NARP, BGRP, KRP, CARP #### [place] [address] CBCon 11-25-2021 Erythrocyte distribution width (RBC) [Ratio] 13.8 % Normal 11.5-15.5 [facility] ([place]) Comment on above: Performed By: #### H CTRP, HGBRP, GLURP, CLRP, NARP, BGRP, KRP, CARP #### [place] [address] Hematocrit (Bld) [Volume fraction] 31.4 % Low 34.0-46.0 [facility] ([place]) Comment on above: Performed By: #### H CTRP, HGBRP, GLURP, CLRP, NARP, BGRP, KRP, CARP #### [place] [address] Hgb 10.3 G/dL Low 12.0-16.0 [facility] ([place]) Comment on above: Performed By: #### H CTRP, HGBRP, GLURP, CLRP, NARP, BGRP, KRP, CARP #### [place] [address] MCH (RBC) [Entitic mass] 29.5 pg Normal 27.0-33.0 [facility] ([place]) Comment on above: Performed By: #### H CTRP, HGBRP, GLURP, CLRP, NARP, BGRP, KRP, CARP #### [place] [address] MCHC 32.8 G/dL Normal 32.0-36.0 [facility] ([place]) Comment on above: Performed By: #### H CTRP, HGBRP, GLURP, CLRP, NARP, BGRP, KRP, CARP #### [place] [address] MCV (RBC) [Entitic vol] 89.8 fL Normal 80.0-99.0 A [facility] ([place]) Comment on above: Performed By: #### H CTRP, HGBRP, GLURP, CLRP, NARP, BGRP, KRP, CARP #### [place] [address] Platelet 205 10 3/mcL Normal 150-450 [facility] ([place]) Comment on above: Performed By: #### H CTRP, HGBRP, GLURP, CLRP, NARP, BGRP, KRP, CARP #### [place] [address] Platelet mean volume (Bld) [Entitic vol] 8.9 fL Normal 6.6-10.5 [facility] ([place]) Comment on above: Performed By: #### H CTRP, HGBRP, GLURP, CLRP, NARP, BGRP, KRP, CARP #### [place] [address] RBC 3.49 10 6/mcL Low 4.10-5.30 [facility] ([place]) Comment on above: Performed By: #### H CTRP, HGBRP, GLURP, CLRP, NARP, BGRP, KRP, CARP #### [place] [address] WBC 18.4 10 3/mcL High 4.5-10.8 [facility] ([place]) Comment on above: Performed By: #### H CTRP, HGBRP, GLURP, CLRP, NARP, BGRP, KRP, CARP #### [place] [address] Jayden 11-25-2021 Potassium [Moles/Vol] 4.3 mmol/L Normal 3.5-5.0 [facility] ([place]) Comment on above: Performed By: #### K #### [place] [address] LABORATORYOrdered By: Alma Rosa Cabrera on 11-25-2021 [...] 11-25-2021 Cholesterol [Mass/Vol] 85 mg/dL Normal 50-199 [facility] ([place]) Comment on above: Result Comment: Chol esterol Reference Interval: Less than 200 Desirable 200-239 Borderline high risk 240 and above High risk Performed By: #### H CTRP, HGBRP, GLURP, CLRP, NARP, BGRP, KRP, CARP #### [address] [address] Cholesterol in HDL [Mass/Vol] 34 mg/dL Low 40-59 [facility] ([place]) Comment on above: Performed By: #### H CTRP, HGBRP, GLURP, CLRP, NARP, BGRP, KRP, CARP #### [address] [address] Cholesterol in LDL [Mass/Vol] 37 mg/dL Normal 0-129 [facility] ([place]) Comment on above: Performed By: #### H CTRP, HGBRP, GLURP, CLRP, NARP, BGRP, KRP, CARP #### [address] [address] Triglyceride [Mass/Vol] 72 mg/dL Normal 3-149 A [facility] ([place]) Comment on above: Performed By: #### H CTRP, HGBRP, GLURP, CLRP, NARP, BGRP, KRP, CARP #### [address] [address] XR CHEST 1 VIEWon 11-25-2021 XR CHEST [...] 11/25/2021 6:55:32 AM Ordering Provider: NAT Mercado [facility] ([place]) XR CHEST 1 VIEW ORIGINAL EXAMINATION: ONE [...] 11/24/2021 10:21:41 PM Ordering Provider: POLLY Mercado [facility] ([place]) .Auto Diffon 11-24-2021 Basophil, Absolute 0.0 10 3/mcL Normal 0.0-0.3 [facility] ([place]) Comment on above: Performed By: #### H CTRP, HGBRP, GLURP, CLRP, NARP, BGRP, KRP, CARP #### [address] [address] Basophils/100 WBC (Bld) 0.2 % Normal 0.0-2.5 [facility] ([place]) Comment on above: Performed By: #### H CTRP, HGBRP, GLURP, CLRP, NARP, BGRP, KRP, CARP #### [address] [address] Eosinophil, Absolute 0.0 10 3/mcL Normal 0.0-0.7 [facility] ([place]) Comment on above: Performed By: #### H CTRP, HGBRP, GLURP, CLRP, NARP, BGRP, KRP, CARP #### [address] [address] Eosinophils/100 WBC (Bld) 0.0 % Normal 0.0-6.0 [facility] ([place]) Comment on above: Performed By: #### H CTRP, HGBRP, GLURP, CLRP, NARP, BGRP, KRP, CARP #### [address] [address] Lymphocyte, Absolute 1.3 10 3/mcL Normal 0.9-4.3 [facility] ([place]) Comment on above: Performed By: #### H CTRP, HGBRP, GLURP, CLRP, NARP, BGRP, KRP, CARP #### [address] [address] Lymphocytes/100 WBC (Bld) 8.8 % Low 20.0-40.0 [facility] ([place]) Comment on above: Performed By: #### H CTRP, HGBRP, GLURP, CLRP, NARP, BGRP, KRP, CARP #### [address] [address] Monocyte, Absolute 1.0 10 3/mcL Normal 0.1-1.4 [facility] ([place]) Comment on above: Performed By: #### H CTRP, HGBRP, GLURP, CLRP, NARP, BGRP, KRP, CARP #### [address] [address] Monocytes/100 WBC (Bld) 6.9 % Normal 2.0-13.0 A [facility] ([place]) Comment on above: Performed By: #### H CTRP, HGBRP, GLURP, CLRP, NARP, BGRP, KRP, CARP #### [address] [address] Neutrophils/100 WBC (Bld) 84.1 % High 50.0-75.0 [facility] ([place]) Comment on above: Performed By: #### H CTRP, HGBRP, GLURP, CLRP, NARP, BGRP, KRP, CARP #### [address] [address] .GFRon 11-24-2021 GFR Non- >60 Normal [facility] ([place]) Comment on above: Result Comment: GFR Population [...] GLURP, CLRP, NARP, BGRP, KRP, CARP #### [address] [address] GFR >60 Normal [facility] ([place]) Comment on above: Result Comment: GFR Population [...] GLURP, CLRP, NARP, BGRP, KRP, CARP #### [address] [address] .NEUABSon 11-24-2021 Neutrophil, Absolute 12.4 10 3/mcL High 2.3-8.1 A [facility] ([place]) Comment on above: Performed By: #### H CTRP, HGBRP, GLURP, CLRP, NARP, BGRP, KRP, CARP #### [address] [address] BGon 11-24-2021 Barometric Pressure 707 mmHg Normal [facility] ([place]) Comment on above: Performed By: #### K #### [address] [address] Base excess Calc (Bld) [Moles/Vol] 1.1 mmol/L Normal [facility] ([place]) Comment on above: Performed By: #### K #### [address] [address] CO2 [Moles/Vol] 27.3 mmol/L Normal 22.0-30.0 [facility] ([place]) Comment on above: Performed By: #### K #### [address] [address] HCO3 (Bld) [Moles/Vol] 26.0 mmol/L Normal 21.0-29.0 A Formerly [facility], [facility] ([place]) Comment on above: Performed By: #### K #### [address] [address] Oxygen (Bld) [Partial pressure] 74.2 mm[Hg] Normal 74.0-108.0 [facility] ([place]) Comment on above: Performed By: #### K #### [address] [address] Oxygen saturation in Blood 95.6 % Normal 92.0-96.0 [facility] ([place]) Comment on above: Performed By: #### K #### [address] [address] pCO2 42.2 mmHg Normal 32.0-46.0 [facility] ([place]) Comment on above: Performed By: #### K #### [address] [address] pH (Bld) 7.407 [pH] Normal 7.380-7.460 [facility] ([place]) Comment on above: Performed By: #### K #### [address] [address] Barometric Pressure 706 mmHg Normal [facility] ([place]) Comment on above: Performed By: #### H CTRP, HGBRP, GLURP, CLRP, NARP, BGRP, KRP, CARP #### [address] [address] Base excess Calc (Bld) [Moles/Vol] -2.2000 mmol/L Normal [facility] ([place]) Comment on above: Performed By: #### H CTRP, HGBRP, GLURP, CLRP, NARP, BGRP, KRP, CARP #### [address] [address] CO2 [Moles/Vol] 26.0 mmol/L Normal 22.0-30.0 [facility] ([place]) Comment on above: Performed By: #### H CTRP, HGBRP, GLURP, CLRP, NARP, BGRP, KRP, CARP #### [address] [address] HCO3 (Bld) [Moles/Vol] 24.4 mmol/L Normal 21.0-29.0 A [facility]ly [facility] ([place]) Comment on above: Performed By: #### H CTRP, HGBRP, GLURP, CLRP, NARP, BGRP, KRP, CARP #### [address] [address] Oxygen (Bld) [Partial pressure] 86.6 mm[Hg] Normal 74.0-108.0 [facility] ([place]) Comment on above: Performed By: #### H CTRP, HGBRP, GLURP, CLRP, NARP, BGRP, KRP, CARP #### [address] [address] Oxygen saturation in Blood 96.2 % High 92.0-96.0 [facility] ([place]) Comment on above: Performed By: #### H CTRP, HGBRP, GLURP, CLRP, NARP, BGRP, KRP, CARP #### [address] [address] pCO2 50.9 mmHg High 32.0-46.0 [facility] ([place]) Comment on above: Performed By: #### H CTRP, HGBRP, GLURP, CLRP, NARP, BGRP, KRP, CARP #### [address] [address] pH (Bld) 7.299 [pH] Low 7.380-7.460 [facility] ([place]) Comment on above: Performed By: #### H CTRP, HGBRP, GLURP, CLRP, NARP, BGRP, KRP, CARP #### [address] [address] Barometric Pressure 709 mmHg Normal [facility] ([place]) Comment on above: Performed By: #### H CTRP, HGBRP, GLURP, CLRP, NARP, BGRP, KRP, CARP #### [address] [address] Base excess Calc (Bld) [Moles/Vol] -0.8000 mmol/L Normal [facility] ([place]) Comment on above: Performed By: #### H CTRP, HGBRP, GLURP, CLRP, NARP, BGRP, KRP, CARP #### [address] [address] CO2 [Moles/Vol] 27.3 mmol/L Normal 22.0-30.0 [facility] ([place]) Comment on above: Performed By: #### H CTRP, HGBRP, GLURP, CLRP, NARP, BGRP, KRP, CARP #### [address] [address] HCO3 (Bld) [Moles/Vol] 25.7 mmol/L Normal 21.0-29.0 [facility] ([place]) Comment on above: Performed By: #### H CTRP, HGBRP, GLURP, CLRP, NARP, BGRP, KRP, CARP #### [address] [address] Oxygen (Bld) [Partial pressure] 130.7 mm[Hg] High 74.0-108.0 [facility] ([place]) Comment on above: Performed By: #### H CTRP, HGBRP, GLURP, CLRP, NARP, BGRP, KRP, CARP #### [address] [address] Oxygen saturation in Blood 98.7 % High 92.0-96.0 [facility] ([place]) Comment on above: Performed By: #### H CTRP, HGBRP, GLURP, CLRP, NARP, BGRP, KRP, CARP #### [address] [address] pCO2 50.9 mmHg High 32.0-46.0 [facility] ([place]) Comment on above: Performed By: #### H CTRP, HGBRP, GLURP, CLRP, NARP, BGRP, KRP, CARP #### [address] [address] pH (Bld) 7.321 [pH] Low 7.380-7.460 [facility] ([place]) Comment on above: Performed By: #### H CTRP, HGBRP, GLURP, CLRP, NARP, BGRP, KRP, CARP #### [address] [address] Barometric Pressure 735 mmHg Normal [facility] ([place]) Comment on above: Performed By: #### H CTRP, HGBRP, GLURP, CLRP, NARP, BGRP, KRP, CARP #### [address] [address] Base excess Calc (Bld) [Moles/Vol] -2.0000 mmol/L Normal [facility] ([place]) Comment on above: Performed By: #### H CTRP, HGBRP, GLURP, CLRP, NARP, BGRP, KRP, CARP #### [address] [address] CO2 [Moles/Vol] 27.5 mmol/L Normal 22.0-30.0 [facility] ([place]) Comment on above: Performed By: #### H CTRP, HGBRP, GLURP, CLRP, NARP, BGRP, KRP, CARP #### [address] [address] HCO3 (Bld) [Moles/Vol] 25.7 mmol/L Normal 21.0-29.0 A [facility]ly [facility] ([place]) Comment on above: Performed By: #### H CTRP, HGBRP, GLURP, CLRP, NARP, BGRP, KRP, CARP #### [address] [address] Oxygen (Bld) [Partial pressure] 101.8 mm[Hg] Normal 74.0-108.0 [facility] ([place]) Comment on above: Performed By: #### H CTRP, HGBRP, GLURP, CLRP, NARP, BGRP, KRP, CARP #### [address] [address] Oxygen saturation in Blood 96.9 % High 92.0-96.0 [facility] ([place]) Comment on above: Performed By: #### H CTRP, HGBRP, GLURP, CLRP, NARP, BGRP, KRP, CARP #### [address] [address] pCO2 55.8 mmHg High 32.0-46.0 [facility] ([place]) Comment on above: Performed By: #### H CTRP, HGBRP, GLURP, CLRP, NARP, BGRP, KRP, CARP #### [address] [address] pH (Bld) 7.282 [pH] Low 7.380-7.460 [facility] ([place]) Comment on above: Performed By: #### H CTRP, HGBRP, GLURP, CLRP, NARP, BGRP, KRP, CARP #### [address] [address] Barometric Pressure 705 mmHg Normal [facility] ([place]) Comment on above: Performed By: #### H CTRP, HGBRP, GLURP, CLRP, NARP, BGRP, KRP, CARP #### [address] [address] Base excess Calc (Bld) [Moles/Vol] -1.8000 mmol/L Normal [facility] ([place]) Comment on above: Performed By: #### H CTRP, HGBRP, GLURP, CLRP, NARP, BGRP, KRP, CARP #### [address] [address] CO2 [Moles/Vol] 27.9 mmol/L Normal 22.0-30.0 [facility] ([place]) Comment on above: Performed By: #### H CTRP, HGBRP, GLURP, CLRP, NARP, BGRP, KRP, CARP #### [address] [address] HCO3 (Bld) [Moles/Vol] 26.1 mmol/L Normal 21.0-29.0 A [facility] ([place]) Comment on above: Performed By: #### H CTRP, HGBRP, GLURP, CLRP, NARP, BGRP, KRP, CARP #### [address] [address] Oxygen (Bld) [Partial pressure] 113.5 mm[Hg] High 74.0-108.0 [facility] ([place]) Comment on above: Performed By: #### H CTRP, HGBRP, GLURP, CLRP, NARP, BGRP, KRP, CARP #### [place] [phone] Oxygen saturation in Blood 97.9 % High 92.0-96.0 [facility] ([place]) Comment on above: Performed By: #### H CTRP, HGBRP, GLURP, CLRP, NARP, BGRP, KRP, CARP #### [place] [phone] pCO2 60.4 mmHg High 32.0-46.0 [facility] ([place]) Comment on above: Performed By: #### H CTRP, HGBRP, GLURP, CLRP, NARP, BGRP, KRP, CARP #### [place] [phone] pH (Bld) 7.253 [pH] Low 7.380-7.460 [facility] ([place]) Comment on above: Performed By: #### H CTRP, HGBRP, GLURP, CLRP, NARP, BGRP, KRP, CARP #### [address] [address] CBCon 11-24-2021 Erythrocyte distribution width (RBC) [Ratio] 14.1 % Normal 11.5-15.5 [facility] ([place]) Comment on above: Performed By: #### H CTRP, HGBRP, GLURP, CLRP, NARP, BGRP, KRP, CARP #### [place] [phone] Hematocrit (Bld) [Volume fraction] 29.2 % Low 34.0-46.0 [facility] ([place]) Comment on above: Performed By: #### H CTRP, HGBRP, GLURP, CLRP, NARP, BGRP, KRP, CARP #### [address] [address] Hgb 9.6 G/dL Low 12.0-16.0 [facility] ([place]) Comment on above: Performed By: #### H CTRP, HGBRP, GLURP, CLRP, NARP, BGRP, KRP, CARP #### [place] [address] MCH (RBC) [Entitic mass] 29.6 pg Normal 27.0-33.0 [facility] ([place]) Comment on above: Performed By: #### H CTRP, HGBRP, GLURP, CLRP, NARP, BGRP, KRP, CARP #### [place] [address] MCHC 32.7 G/dL Normal 32.0-36.0 [facility] ([place]) Comment on above: Performed By: #### H CTRP, HGBRP, GLURP, CLRP, NARP, BGRP, KRP, CARP #### [place] [address] MCV (RBC) [Entitic vol] 90.4 fL Normal 80.0-99.0 A [facility]ly [facility] ([place]) Comment on above: Performed By: #### H CTRP, HGBRP, GLURP, CLRP, NARP, BGRP, KRP, CARP #### [place] [address] Platelet 186 10 3/mcL Normal 150-450 [facility] ([place]) Comment on above: Performed By: #### H CTRP, HGBRP, GLURP, CLRP, NARP, BGRP, KRP, CARP #### [place] [address] Platelet mean volume (Bld) [Entitic vol] 8.5 fL Normal 6.6-10.5 [facility] ([place]) Comment on above: Performed By: #### H CTRP, HGBRP, GLURP, CLRP, NARP, BGRP, KRP, CARP #### [place] [address] RBC 3.23 10 6/mcL Low 4.10-5.30 [facility] ([place]) Comment on above: Performed By: #### H CTRP, HGBRP, GLURP, CLRP, NARP, BGRP, KRP, CARP #### [address] [address] WBC 14.8 10 3/mcL High 4.5-10.8 [facility] ([place]) Comment on above: Performed By: #### H CTRP, HGBRP, GLURP, CLRP, NARP, BGRP, KRP, CARP #### [address] [address] CMPon 11-24-2021 Albumin Level 3.7 G/dL Normal 3.2-4.8 [facility] ([place]) Comment on above: Performed By: #### H CTRP, HGBRP, GLURP, CLRP, NARP, BGRP, KRP, CARP #### [address] [address] Albumin/Globulin [Mass ratio] 1.9 {ratio} High 0.9-1.6 [facility] ([place]) Comment on above: Performed By: #### H CTRP, HGBRP, GLURP, CLRP, NARP, BGRP, KRP, CARP #### [address] [address] ALP [Catalytic activity/Vol] 41 U/L Normal 38-126 [facility] ([place]) Comment on above: Performed By: #### H CTRP, HGBRP, GLURP, CLRP, NARP, BGRP, KRP, CARP #### [address] [address] ALT [Catalytic activity/Vol] 33 U/L Normal 10-49 [facility] ([place]) Comment on above: Performed By: #### H CTRP, HGBRP, GLURP, CLRP, NARP, BGRP, KRP, CARP #### [address] [address] AST [Catalytic activity/Vol] 49 U/L High 8-34 [facility] ([place]) Comment on above: Performed By: #### H CTRP, HGBRP, GLURP, CLRP, NARP, BGRP, KRP, CARP #### [address] [address] Bili Total 0.80 mg/dL Normal 0.20-1.20 [facility] ([place]) Comment on above: Result Comment: Use of this assay is not recommended for patients undergoing treatment with eltrombopag due to the potential for falsely elevated results. Performed By: #### H CTRP, HGBRP, GLURP, CLRP, NARP, BGRP, KRP, CARP #### [address] [address] BUN/Creatinine Ratio 22.4 ratio High 10.0-22.0 [facility] ([place]) Comment on above: Performed By: #### H CTRP, HGBRP, GLURP, CLRP, NARP, BGRP, KRP, CARP #### [address] [address] Calcium [Mass/Vol] 7.5 mg/dL Low 8.7-10.4 [facility] ([place]) Comment on above: Performed By: #### H CTRP, HGBRP, GLURP, CLRP, NARP, BGRP, KRP, CARP #### [address] [address] Chloride [Moles/Vol] 106 mmol/L Normal 98-110 [facility] ([place]) Comment on above: Performed By: #### H CTRP, HGBRP, GLURP, CLRP, NARP, BGRP, KRP, CARP #### [address] [address] CO2 [Moles/Vol] 26 mmol/L Normal 22-32 [facility] ([place]) Comment on above: Performed By: #### H CTRP, HGBRP, GLURP, CLRP, NARP, BGRP, KRP, CARP #### [address] [address] Creatinine [Mass/Vol] 0.67 mg/dL Normal 0.50-1.20 [facility] ([place]) Comment on above: Performed By: #### H CTRP, HGBRP, GLURP, CLRP, NARP, BGRP, KRP, CARP #### [address] [address] Electrolyte Balance 5.0 mEq/L Normal 4.0-15.0 [facility] ([place]) Comment on above: Performed By: #### H CTRP, HGBRP, GLURP, CLRP, NARP, BGRP, KRP, CARP #### [address] [address] Globulin 1.9 G/dL Normal 1.5-3.8 [facility] ([place]) Comment on above: Performed By: #### H CTRP, HGBRP, GLURP, CLRP, NARP, BGRP, KRP, CARP #### [address] [address] Glucose [Mass/Vol] 141 mg/dL High 82-115 [facility] ([place]) Comment on above: Performed By: #### H CTRP, HGBRP, GLURP, CLRP, NARP, BGRP, KRP, CARP #### [address] [address] Potassium [Moles/Vol] 4.2 mmol/L Normal 3.5-5.0 [facility] ([place]) Comment on above: Performed By: #### H CTRP, HGBRP, GLURP, CLRP, NARP, BGRP, KRP, CARP #### [address] [address] Sodium [Moles/Vol] 137 mmol/L Normal 136-145 [facility] ([place]) Comment on above: Performed By: #### H CTRP, HGBRP, GLURP, CLRP, NARP, BGRP, KRP, CARP #### [address] [address] Total Protein 5.6 G/dL Low 5.7-8.2 [facility] ([place]) Comment on above: Result Comment: No te - New Reference Range in effect 19 Performed By: #### H CTRP, HGBRP, GLURP, CLRP, NARP, BGRP, KRP, CARP #### [place] [address] Urea nitrogen [Mass/Vol] 15.0 mg/dL Normal 8.0-22.0 [facility] ([place]) Comment on above: Performed By: #### H CTRP, HGBRP, GLURP, CLRP, NARP, BGRP, KRP, CARP #### [place] [address] Jayden 11-24-2021 Potassium [Moles/Vol] 4.0 mmol/L Normal 3.5-5.0 [facility] ([place]) Comment on above: Performed By: #### H CTRP, HGBRP, GLURP, CLRP, NARP, BGRP, KRP, CARP #### [place] [address] Potassium [Moles/Vol] 4.7 mmol/L Normal 3.5-5.0 [facility] ([place]) Comment on above: Performed By: #### H CTRP, HGBRP, GLURP, CLRP, NARP, BGRP, KRP, CARP #### [place] [address] LABORATORYOrdered By: Oswaldo Vásquez on 11-24-2021 Blood Glucose Interventions Administered agent to decrease blood sugar (11/24/21 11:28 AM) [facility] Work Phone: Blood Glucose Interventions Administered agent to decrease blood sugar (11/24/21 9:39 AM) [facility] Work Phone: Blood Glucose Interventions Administered agent to decrease blood sugar (11/24/21 7:27 AM) [facility] Work Phone: LABORATORYOrdered By: SYSTEM SYSTEM on [...] Basophil, Absolute 0.1 10 3/mcL Normal 0.0-0.3 [facility] ([place]) Comment on above: Performed By: #### H CTRP, HGBRP, GLURP, CLRP, NARP, BGRP, KRP, CARP #### [address] [address] Basophils/100 WBC (Bld) 0.3 % Normal 0.0-2.5 A [facility] ([place]) Comment on above: Performed By: #### H CTRP, HGBRP, GLURP, CLRP, NARP, BGRP, KRP, CARP #### [address] [address] Eosinophil, Absolute 0.3 10 3/mcL Normal 0.0-0.7 [facility] ([place]) Comment on above: Performed By: #### H CTRP, HGBRP, GLURP, CLRP, NARP, BGRP, KRP, CARP #### [address] [address] Eosinophils/100 WBC (Bld) 1.3 % Normal 0.0-6.0 [facility] ([place]) Comment on above: Performed By: #### H CTRP, HGBRP, GLURP, CLRP, NARP, BGRP, KRP, CARP #### [address] [address] Lymphocyte, Absolute 2.6 10 3/mcL Normal 0.9-4.3 [facility] ([place]) Comment on above: Performed By: #### H CTRP, HGBRP, GLURP, CLRP, NARP, BGRP, KRP, CARP #### [address] [address] Lymphocytes/100 WBC (Bld) 11.4 % Low 20.0-40.0 [facility] ([place]) Comment on above: Performed By: #### H CTRP, HGBRP, GLURP, CLRP, NARP, BGRP, KRP, CARP #### [address] [address] Monocyte, Absolute 0.7 10 3/mcL Normal 0.1-1.4 [facility] ([place]) Comment on above: Performed By: #### H CTRP, HGBRP, GLURP, CLRP, NARP, BGRP, KRP, CARP #### [address] [address] Monocytes/100 WBC (Bld) 3.1 % Normal 2.0-13.0 [facility] ([place]) Comment on above: Performed By: #### H CTRP, HGBRP, GLURP, CLRP, NARP, BGRP, KRP, CARP #### [address] [address] Neutrophils/100 WBC (Bld) 83.9 % High 50.0-75.0 [facility] ([place]) Comment on above: Performed By: #### H CTRP, HGBRP, GLURP, CLRP, NARP, BGRP, KRP, CARP #### [address] [address] .GFRon 11-23-2021 GFR Non- >60 Normal [facility] ([place]) Comment on above: Result Comment: GFR Population [...] GLURP, CLRP, NARP, BGRP, KRP, CARP #### [address] [address] GFR >60 Normal [facility] ([place]) Comment on above: Result Comment: GFR Population [...] GLURP, CLRP, NARP, BGRP, KRP, CARP #### [address] [address] .NEUABSon 11-23-2021 Neutrophil, Absolute 18.9 10 3/mcL High 2.3-8.1 A [facility] ([place]) Comment on above: Performed By: #### H CTRP, HGBRP, GLURP, CLRP, NARP, BGRP, KRP, CARP #### [address] [address] ABO/Rh (Gel)on 11-23-2021 ABO/Rh Interp Positive Invalid Interpretation Code [facility] ([place]) Comment on above: Performed By: #### H CTRP, HGBRP, GLURP, CLRP, NARP, BGRP, KRP, CARP #### [address] [address] ABS (Gel)on 11-23-2021 ABSC Interp (Gel) Negative Normal [facility] ([place]) Comment on above: Performed By: #### H CTRP, HGBRP, GLURP, CLRP, NARP, BGRP, KRP, CARP #### [address] [address] APTTon 11-23-2021 aPTT Coag (Bld) [Time] 32.5 s Normal 25.0-35.0 [facility] ([place]) Comment on above: Result Comment: For Heparin anticoagulation therapy, the recommended therapeutic range is: 54-77 seconds (APTT Correlation with Anti-Xa therapeutic range of 0.3-0.7 units/ml). PLEASE REFERENCE THE PHARMACY PROTOCOL FOR DOSING. Performed By: #### H CTRP, HGBRP, GLURP, CLRP, NARP, BGRP, KRP, CARP #### [place] [phone] Heparin dose (APTT) None Normal [facility] ([place]) Comment on above: Performed By: #### H CTRP, HGBRP, GLURP, CLRP, NARP, BGRP, KRP, CARP #### [address] [address] aPTT Coag (Bld) [Time] 25.6 s Normal 25.0-35.0 [facility] ([place]) Comment on above: Result Comment: For Heparin anticoagulation therapy, the recommended therapeutic range is: 54-77 seconds (APTT Correlation with Anti-Xa therapeutic range of 0.3-0.7 units/ml). PLEASE REFERENCE THE PHARMACY PROTOCOL FOR DOSING. Performed By: #### H CTRP, HGBRP, GLURP, CLRP, NARP, BGRP, KRP, CARP #### [address] [address] Heparin dose (APTT) Unknown Normal [facility] ([place]) Comment on above: Performed By: #### H CTRP, HGBRP, GLURP, CLRP, NARP, BGRP, KRP, CARP #### [address] [address] BGon 11-23-2021 Barometric Pressure 735 mmHg Normal [facility] ([place]) Comment on above: Performed By: #### K #### [address] [address] Base excess Calc (Bld) [Moles/Vol] -1.8000 mmol/L Normal [facility] ([place]) Comment on above: Performed By: #### K #### [address] [address] CO2 [Moles/Vol] 28.0 mmol/L Normal 22.0-30.0 [facility] ([place]) Comment on above: Performed By: #### K #### [place] [phone] HCO3 (Bld) [Moles/Vol] 26.2 mmol/L Normal 21.0-29.0 A [facility] ([place]) Comment on above: Performed By: #### K #### [place] [phone] Oxygen (Bld) [Partial pressure] 108.5 mm[Hg] High 74.0-108.0 [facility] ([place]) Comment on above: Performed By: #### K #### [place] [phone] Oxygen saturation in Blood 97.3 % High 92.0-96.0 [facility] ([place] Comment on above: Performed By: #### K #### [address] [address] pCO2 57.8 mmHg High 32.0-46.0 [facility] ([place] Comment on above: Performed By: #### K #### [address] [address] pH (Bld) 7.274 [pH] Low 7.380-7.460 [facility] ([place] Comment on above: Performed By: #### K #### [place] [phone] Barometric Pressure 708 mmHg Normal [facility] ([place]) Comment on above: Performed By: #### H CTRP, HGBRP, GLURP, CLRP, NARP, BGRP, KRP, CARP #### [address] [address] Base excess Calc (Bld) [Moles/Vol] -2.2000 mmol/L Normal [facility] ([place]) Comment on above: Performed By: #### H CTRP, HGBRP, GLURP, CLRP, NARP, BGRP, KRP, CARP #### [address] [address] CO2 [Moles/Vol] 27.8 mmol/L Normal 22.0-30.0 [facility] ([place] Comment on above: Performed By: #### H CTRP, HGBRP, GLURP, CLRP, NARP, BGRP, KRP, CARP #### [place] [phone] HCO3 (Bld) [Moles/Vol] 25.9 mmol/L Normal 21.0-29.0 [facility] ([place]) Comment on above: Performed By: #### H CTRP, HGBRP, GLURP, CLRP, NARP, BGRP, KRP, CARP #### [address] [address] Oxygen (Bld) [Partial pressure] 97.0 mm[Hg] Normal 74.0-108.0 [facility] ([place] Comment on above: Performed By: #### H CTRP, HGBRP, GLURP, CLRP, NARP, BGRP, KRP, CARP #### [address] [address] Oxygen saturation in Blood 96.1 % High 92.0-96.0 [facility] ([place]) Comment on above: Performed By: #### H CTRP, HGBRP, GLURP, CLRP, NARP, BGRP, KRP, CARP #### [address] [address] pCO2 61.5 mmHg High 32.0-46.0 [facility] ([place]) Comment on above: Performed By: #### H CTRP, HGBRP, GLURP, CLRP, NARP, BGRP, KRP, CARP #### [address] [address] pH (Bld) 7.242 [pH] Low 7.380-7.460 [facility] ([place] Comment on above: Performed By: #### H CTRP, HGBRP, GLURP, CLRP, NARP, BGRP, KRP, CARP #### [address] [address] Barometric Pressure 708 mmHg Normal [facility] ([place]) Comment on above: Order Comment: CPAP Performed By: #### H CTRP, HGBRP, GLURP, CLRP, NARP, BGRP, KRP, CARP #### [address] [address] Base excess Calc (Bld) [Moles/Vol] -1.1000 mmol/L Normal [facility] ([place]) Comment on above: Order Comment: CPAP Performed By: #### H CTRP, HGBRP, GLURP, CLRP, NARP, BGRP, KRP, CARP #### [address] [address] CO2 [Moles/Vol] 26.0 mmol/L Normal 22.0-30.0 [facility] ([place] Comment on above: Order Comment: CPAP Performed By: #### H CTRP, HGBRP, GLURP, CLRP, NARP, BGRP, KRP, CARP #### [address] [address] HCO3 (Bld) [Moles/Vol] 24.6 mmol/L Normal 21.0-29.0 A [facility] ([place]) Comment on above: Order Comment: CPAP Performed By: #### H CTRP, HGBRP, GLURP, CLRP, NARP, BGRP, KRP, CARP #### [address] [address] Oxygen (Bld) [Partial pressure] 127.1 mm[Hg] High 74.0-108.0 [facility] ([place] Comment on above: Order Comment: CPAP Performed By: #### H CTRP, HGBRP, GLURP, CLRP, NARP, BGRP, KRP, CARP #### [address] [address] Oxygen saturation in Blood 98.4 % High 92.0-96.0 [facility] ([place] Comment on above: Order Comment: CPAP Performed By: #### H CTRP, HGBRP, GLURP, CLRP, NARP, BGRP, KRP, CARP #### [address] [address] pCO2 45.6 mmHg Normal 32.0-46.0 [facility] ([place] Comment on above: Order Comment: CPAP Performed By: #### H CTRP, HGBRP, GLURP, CLRP, NARP, BGRP, KRP, CARP #### [address] [address] pH (Bld) 7.350 [pH] Low 7.380-7.460 [facility] ([place]) Comment on above: Order Comment: CPAP Performed By: #### H CTRP, HGBRP, GLURP, CLRP, NARP, BGRP, KRP, CARP #### [address] [address] Barometric Pressure 709 mmHg Normal [facility] ([place]) Comment on above: Performed By: #### H CTRP, HGBRP, GLURP, CLRP, NARP, BGRP, KRP, CARP #### [address] [address] Base excess Calc (Bld) [Moles/Vol] -1.4000 mmol/L Normal [facility] ([place]) Comment on above: Performed By: #### H CTRP, HGBRP, GLURP, CLRP, NARP, BGRP, KRP, CARP #### [address] [address] HCO3 (Bld) [Moles/Vol] 24.3 mmol/L Normal 21.0-29.0 A [facility] ([place]) Comment on above: Performed By: #### H CTRP, HGBRP, GLURP, CLRP, NARP, BGRP, KRP, CARP #### [address] [address] Oxygen (Bld) [Partial pressure] 118.0 mm[Hg] High 74.0-108.0 [facility] ([place]) Comment on above: Performed By: #### H CTRP, HGBRP, GLURP, CLRP, NARP, BGRP, KRP, CARP #### [address] [address] Oxygen saturation in Blood 98.2 % High 92.0-96.0 [facility] ([place]) Comment on above: Performed By: #### H CTRP, HGBRP, GLURP, CLRP, NARP, BGRP, KRP, CARP #### [address] [address] pCO2 44.8 mmHg Normal 32.0-46.0 [facility] ([place]) Comment on above: Performed By: #### H CTRP, HGBRP, GLURP, CLRP, NARP, BGRP, KRP, CARP #### [address] [address] pH (Bld) 7.352 [pH] Low 7.380-7.460 [facility] ([place]) Comment on above: Performed By: #### H CTRP, HGBRP, GLURP, CLRP, NARP, BGRP, KRP, CARP #### [address] [address] Barometric Pressure 706 mmHg Normal [facility] ([place]) Comment on above: Performed By: #### B G #### [address] [address] Base excess Calc (Bld) [Moles/Vol] -2.3000 mmol/L Normal [facility] ([place]) Comment on above: Performed By: #### B G #### [address] [address] CO2 [Moles/Vol] 24.6 mmol/L Normal 22.0-30.0 [facility] ([place]) Comment on above: Performed By: #### B G #### [place] [address] HCO3 (Bld) [Moles/Vol] 23.3 mmol/L Normal 21.0-29.0 A [facility] ([place]) Comment on above: Performed By: #### B G #### [place] [address] Oxygen (Bld) [Partial pressure] 98.4 mm[Hg] Normal 74.0-108.0 [facility] ([place]) Comment on above: Performed By: #### B G #### [place] [address] Oxygen saturation in Blood 97.4 % High 92.0-96.0 [facility] ([place]) Comment on above: Performed By: #### B G #### [place] [address] pCO2 43.4 mmHg Normal 32.0-46.0 [facility] ([place]) Comment on above: Performed By: #### B G #### [place] [address] pH (Bld) 7.348 [pH] Low 7.380-7.460 [facility] ([place]) Comment on above: Performed By: #### B G #### [place] [address] BGOrdered By: SYSTEM SYSTEM on 11-23-2021 CO2 [Moles/Vol] 25.7 mmol/L Normal 22.0-30.0 AH Rapid Comm SS Comment on above: Performed By: #### H CTRP, HGBRP, GLURP, CLRP, NARP, BGRP, KRP, CARP #### [place] [address] Performed By: #### K #### [place] [address] BGRPon 11-23-2021 Base Excess - POC -2.6 mmol/L Normal [facility] ([place]) Comment on above: Performed By: #### H CTRP, HGBRP, GLURP, CLRP, NARP, BGRP, KRP, CARP #### [address] [address] CO2 [Moles/Vol] 23.5 mmol/L Normal 22.0-30.0 [facility] ([place]) Comment on above: Performed By: #### H CTRP, HGBRP, GLURP, CLRP, NARP, BGRP, KRP, CARP #### [place] [id number] HCO3 (Bld) [Moles/Vol] 22.3 mmol/L Normal 21.0-29.0 A [facility] ([place]) Comment on above: Performed By: #### H CTRP, HGBRP, GLURP, CLRP, NARP, BGRP, KRP, CARP #### [place] [address] Oxygen saturation in Blood 97.8 % High 92.0-96.0 [facility] ([place]) Comment on above: Performed By: #### H CTRP, HGBRP, GLURP, CLRP, NARP, BGRP, KRP, CARP #### [address] [address] PCO2 - POC 38.7 mmHg Normal 32.0-46.0 [facility] ([place]) Comment on above: Performed By: #### H CTRP, HGBRP, GLURP, CLRP, NARP, BGRP, KRP, CARP #### [place] [id number] pH (poct) - POC 7.378 Low 7.380-7.460 [facility] ([place]) Comment on above: Performed By: #### H CTRP, HGBRP, GLURP, CLRP, NARP, BGRP, KRP, CARP #### [place] [id number] PO2 - POC 123.0 mmHg High 74.0-108.0 [facility] ([place]) Comment on above: Performed By: #### H CTRP, HGBRP, GLURP, CLRP, NARP, BGRP, KRP, CARP #### [place] [phone] Base Excess - POC -3.2 mmol/L Normal [facility] ([place]) Comment on above: Performed By: #### H CTRP, HGBRP, GLURP, CLRP, NARP, BGRP, KRP, CARP #### [address] [address] CO2 [Moles/Vol] 22.8 mmol/L Normal 22.0-30.0 [facility] ([place]) Comment on above: Performed By: #### H CTRP, HGBRP, GLURP, CLRP, NARP, BGRP, KRP, CARP #### [place] [phone] HCO3 (Bld) [Moles/Vol] 21.7 mmol/L Normal 21.0-29.0 A [facility] ([place]) Comment on above: Performed By: #### H CTRP, HGBRP, GLURP, CLRP, NARP, BGRP, KRP, CARP #### [place] [phone] Oxygen saturation in Blood 99.2 % High 92.0-96.0 [facility] ([place]) Comment on above: Performed By: #### H CTRP, HGBRP, GLURP, CLRP, NARP, BGRP, KRP, CARP #### [place] [phone] PCO2 - POC 37.9 mmHg Normal 32.0-46.0 [facility] ([place]) Comment on above: Performed By: #### H CTRP, HGBRP, GLURP, CLRP, NARP, BGRP, KRP, CARP #### [address] [address] pH (poct) - POC 7.375 Low 7.380-7.460 [facility] ([place]) Comment on above: Performed By: #### H CTRP, HGBRP, GLURP, CLRP, NARP, BGRP, KRP, CARP #### [place] [id number] PO2 - POC 428.4 mmHg High 74.0-108.0 [facility] ([place]) Comment on above: Performed By: #### H CTRP, HGBRP, GLURP, CLRP, NARP, BGRP, KRP, CARP #### [address] [address] Base Excess - POC -0.5 mmol/L Normal [facility] ([place]) Comment on above: Performed By: #### K #### [place] [phone] Oxygen saturation in Blood 99.0 % High 92.0-96.0 [facility] ([place]) Comment on above: Performed By: #### K #### [place] [address] PCO2 - POC 41.5 mmHg Normal 32.0-46.0 [facility] ([place]) Comment on above: Performed By: #### K #### [place] [phone] pH (poct) - POC 7.388 Normal 7.380-7.460 [facility] ([place]) Comment on above: Performed By: #### K #### [place] [address] PO2 - POC 450.3 mmHg High 74.0-108.0 [facility] ([place]) Comment on above: Performed By: #### K #### [place] [address] Base Excess - POC -1.4 mmol/L Normal [facility] ([place]) Comment on above: Performed By: #### H CTRP, HGBRP, GLURP, CLRP, NARP, BGRP, KRP, CARP #### [address] [address] CO2 [Moles/Vol] 24.0 mmol/L Normal 22.0-30.0 [facility] ([place]) Comment on above: Performed By: #### H CTRP, HGBRP, GLURP, CLRP, NARP, BGRP, KRP, CARP #### [address] [address] HCO3 (Bld) [Moles/Vol] 22.8 mmol/L Normal 21.0-29.0 A [facility] ([place]) Comment on above: Performed By: #### H CTRP, HGBRP, GLURP, CLRP, NARP, BGRP, KRP, CARP #### [address] [address] Oxygen saturation in Blood 99.4 % High 92.0-96.0 [facility] ([place]) Comment on above: Performed By: #### H CTRP, HGBRP, GLURP, CLRP, NARP, BGRP, KRP, CARP #### [place] [phone] PCO2 - POC 36.7 mmHg Normal 32.0-46.0 [facility] ([place]) Comment on above: Performed By: #### H CTRP, HGBRP, GLURP, CLRP, NARP, BGRP, KRP, CARP #### [place] [phone] pH (poct) - POC 7.412 Normal 7.380-7.460 [facility] ([place]) Comment on above: Performed By: #### H CTRP, HGBRP, GLURP, CLRP, NARP, BGRP, KRP, CARP #### [address] [address] PO2 - POC 386.4 mmHg High 74.0-108.0 [facility] ([place]) Comment on above: Performed By: #### H CTRP, HGBRP, GLURP, CLRP, NARP, BGRP, KRP, CARP #### [place] [phone] Base Excess - POC -0.6 mmol/L Normal [facility] ([place]) Comment on above: Performed By: #### H CTRP, HGBRP, GLURP, CLRP, NARP, BGRP, KRP, CARP #### [place] [phone] CO2 [Moles/Vol] 25.9 mmol/L Normal 22.0-30.0 [facility] ([place]) Comment on above: Performed By: #### H CTRP, HGBRP, GLURP, CLRP, NARP, BGRP, KRP, CARP #### [place] [address] HCO3 (Bld) [Moles/Vol] 24.6 mmol/L Normal 21.0-29.0 A [facility] ([place]) Comment on above: Performed By: #### H CTRP, HGBRP, GLURP, CLRP, NARP, BGRP, KRP, CARP #### [place] [address] Oxygen saturation in Blood 99.4 % High 92.0-96.0 [facility] ([place]) Comment on above: Performed By: #### H CTRP, HGBRP, GLURP, CLRP, NARP, BGRP, KRP, CARP #### [place] [address] PCO2 - POC 42.3 mmHg Normal 32.0-46.0 [facility] ([place]) Comment on above: Performed By: #### H CTRP, HGBRP, GLURP, CLRP, NARP, BGRP, KRP, CARP #### [place] [address] pH (poct) - POC 7.382 Normal 7.380-7.460 [facility] ([place]) Comment on above: Performed By: #### H CTRP, HGBRP, GLURP, CLRP, NARP, BGRP, KRP, CARP #### [place] [address] PO2 - POC 338.4 mmHg High 74.0-108.0 [facility] ([place]) Comment on above: Performed By: #### H CTRP, HGBRP, GLURP, CLRP, NARP, BGRP, KRP, CARP #### [place] [address] BGRPOrdered By: SYSTEM [employer] on 11-23-2021 HCO3 (Bld) [Moles/Vol] 24.4 mmol/L Normal 21.0-29.0 A H Rapid Comm SS Comment on above: Performed By: #### K #### [address] [address] BMPon 11-23-2021 BUN/Creatinine Ratio 18.9 ratio Normal 10.0-22.0 [facility] ([place]) Comment on above: Performed By: #### H CTRP, HGBRP, GLURP, CLRP, NARP, BGRP, KRP, CARP #### [address] [address] Calcium [Mass/Vol] 8.1 mg/dL Low 8.7-10.4 [facility] ([place]) Comment on above: Performed By: #### H CTRP, HGBRP, GLURP, CLRP, NARP, BGRP, KRP, CARP #### [address] [address] Chloride [Moles/Vol] 108 mmol/L Normal 98-110 [facility] ([place]) Comment on above: Performed By: #### H CTRP, HGBRP, GLURP, CLRP, NARP, BGRP, KRP, CARP #### [address] [address] CO2 [Moles/Vol] 24 mmol/L Normal 22-32 [facility] ([place]) Comment on above: Performed By: #### H CTRP, HGBRP, GLURP, CLRP, NARP, BGRP, KRP, CARP #### [address] [address] Creatinine [Mass/Vol] 0.74 mg/dL Normal 0.50-1.20 [facility] ([place]) Comment on above: Performed By: #### H CTRP, HGBRP, GLURP, CLRP, NARP, BGRP, KRP, CARP #### [address] [address] Electrolyte Balance 9.0 mEq/L Normal 4.0-15.0 [facility] ([place]) Comment on above: Performed By: #### H CTRP, HGBRP, GLURP, CLRP, NARP, BGRP, KRP, CARP #### [address] [address] Glucose [Mass/Vol] 152 mg/dL High 82-115 [facility] ([place]) Comment on above: Performed By: #### H CTRP, HGBRP, GLURP, CLRP, NARP, BGRP, KRP, CARP #### [address] [address] Potassium [Moles/Vol] 4.1 mmol/L Normal 3.5-5.0 [facility] ([place]) Comment on above: Performed By: #### H CTRP, HGBRP, GLURP, CLRP, NARP, BGRP, KRP, CARP #### [address] [address] Sodium [Moles/Vol] 141 mmol/L Normal 136-145 [facility] ([place]) Comment on above: Performed By: #### H CTRP, HGBRP, GLURP, CLRP, NARP, BGRP, KRP, CARP #### [address] [address] Urea nitrogen [Mass/Vol] 14.0 mg/dL Normal 8.0-22.0 [facility] ([place]) Comment on above: Performed By: #### H CTRP, HGBRP, GLURP, CLRP, NARP, BGRP, KRP, CARP #### [address] [address] CAIONon 11-23-2021 Calcium Ionized 1.02 mmol/L Low 1.12-1.32 [facility] ([place]) Comment on above: Performed By: #### H CTRP, HGBRP, GLURP, CLRP, NARP, BGRP, KRP, CARP #### [address] [address] CARPon 11-23-2021 Ionized Calcium - POC 0.99 mmol/L Low 1.12-1.32 [facility] ([place]) Comment on above: Performed By: #### H CTRP, HGBRP, GLURP, CLRP, NARP, BGRP, KRP, CARP #### [place] [address] Ionized Calcium - POC 1.04 mmol/L Low 1.12-1.32 [facility] ([place]) Comment on above: Performed By: #### H CTRP, HGBRP, GLURP, CLRP, NARP, BGRP, KRP, CARP #### [place] [address] Ionized Calcium - POC 0.98 mmol/L Low 1.12-1.32 [facility] ([place]) Comment on above: Performed By: #### K #### [place] [address] Ionized Calcium - POC 1.09 mmol/L Low 1.12-1.32 [facility] ([place]) Comment on above: Performed By: #### H CTRP, HGBRP, GLURP, CLRP, NARP, BGRP, KRP, CARP #### [place] [address] Ionized Calcium - POC 1.17 mmol/L Normal 1.12-1.32 [facility] ([place]) Comment on above: Performed By: #### H CTRP, HGBRP, GLURP, CLRP, NARP, BGRP, KRP, CARP #### [place] [address] CBCon 11-23-2021 Erythrocyte distribution width (RBC) [Ratio] 13.6 % Normal 11.5-15.5 [facility] ([place]) Comment on above: Performed By: #### H CTRP, HGBRP, GLURP, CLRP, NARP, BGRP, KRP, CARP #### [place] [address] Hematocrit (Bld) [Volume fraction] 32.3 % Low 34.0-46.0 [facility] ([place]) Comment on above: Performed By: #### H CTRP, HGBRP, GLURP, CLRP, NARP, BGRP, KRP, CARP #### [place] [address] Hgb 10.7 G/dL Low 12.0-16.0 [facility] ([place]) Comment on above: Performed By: #### H CTRP, HGBRP, GLURP, CLRP, NARP, BGRP, KRP, CARP #### [place] [id number] MCH (RBC) [Entitic mass] 29.8 pg Normal 27.0-33.0 [facility] ([place]) Comment on above: Performed By: #### H CTRP, HGBRP, GLURP, CLRP, NARP, BGRP, KRP, CARP #### [address] [address] MCHC 33.2 G/dL Normal 32.0-36.0 [facility] ([place]) Comment on above: Performed By: #### H CTRP, HGBRP, GLURP, CLRP, NARP, BGRP, KRP, CARP #### [place] [address] MCV (RBC) [Entitic vol] 89.9 fL Normal 80.0-99.0 A [facility] ([place]) Comment on above: Performed By: #### H CTRP, HGBRP, GLURP, CLRP, NARP, BGRP, KRP, CARP #### [place] [address] Platelet 220 10 3/mcL Normal 150-450 [facility] ([place]) Comment on above: Performed By: #### H CTRP, HGBRP, GLURP, CLRP, NARP, BGRP, KRP, CARP #### [place] [address] Platelet mean volume (Bld) [Entitic vol] 8.6 fL Normal 6.6-10.5 [facility] ([place]) Comment on above: Performed By: #### H CTRP, HGBRP, GLURP, CLRP, NARP, BGRP, KRP, CARP #### [place] [address] RBC 3.60 10 6/mcL Low 4.10-5.30 [facility] ([place]) Comment on above: Performed By: #### H CTRP, HGBRP, GLURP, CLRP, NARP, BGRP, KRP, CARP #### [address] [address] WBC 22.5 10 3/mcL High 4.5-10.8 [facility] ([place]) Comment on above: Performed By: #### H CTRP, HGBRP, GLURP, CLRP, NARP, BGRP, KRP, CARP #### [address] [address] CLRPon 11-23-2021 Chloride [Moles/Vol] 102 mmol/L Normal 98-110 [facility] ([place]) Comment on above: Performed By: #### H CTRP, HGBRP, GLURP, CLRP, NARP, BGRP, KRP, CARP #### [address] [address] Chloride [Moles/Vol] 100 mmol/L Normal 98-110 [facility] ([place]) Comment on above: Performed By: #### H CTRP, HGBRP, GLURP, CLRP, NARP, BGRP, KRP, CARP #### [address] [address] Chloride [Moles/Vol] 100 mmol/L Normal 98-110 [facility] ([place]) Comment on above: Performed By: #### K #### [address] [address] Chloride [Moles/Vol] 103 mmol/L Normal 98-110 [facility] ([place]) Comment on above: Performed By: #### H CTRP, HGBRP, GLURP, CLRP, NARP, BGRP, KRP, CARP #### [address] [address] Chloride [Moles/Vol] 102 mmol/L Normal 98-110 [facility] ([place]) Comment on above: Performed By: #### H CTRP, HGBRP, GLURP, CLRP, NARP, BGRP, KRP, CARP #### [address] [address] FIBon 11-23-2021 Fibrinogen 313 mg/dL Normal 250-560 [facility] ([place]) Comment on above: Performed By: #### H CTRP, HGBRP, GLURP, CLRP, NARP, BGRP, KRP, CARP #### [address] [address] Fibrinogen 491 mg/dL Normal 250-560 [facility] ([place]) Comment on above: Performed By: #### H CTRP, HGBRP, GLURP, CLRP, NARP, BGRP, KRP, CARP #### [address] [address] GLURPon 11-23-2021 Glucose [Mass/Vol] 183 mg/dL High 82-115 [facility] ([place]) Comment on above: Performed By: #### H CTRP, HGBRP, GLURP, CLRP, NARP, BGRP, KRP, CARP #### [address] [address] Glucose [Mass/Vol] 203 mg/dL High 82-115 [facility] ([place]) Comment on above: Performed By: #### H CTRP, HGBRP, GLURP, CLRP, NARP, BGRP, KRP, CARP #### [address] [address] Glucose [Mass/Vol] 201 mg/dL High 82-115 [facility] ([place]) Comment on above: Performed By: #### H CTRP, HGBRP, GLURP, CLRP, NARP, BGRP, KRP, CARP #### [address] [address] Glucose [Mass/Vol] 150 mg/dL High 82-115 [facility] ([place]) Comment on above: Performed By: #### H CTRP, HGBRP, GLURP, CLRP, NARP, BGRP, KRP, CARP #### [address] [address] GLURPOrdered By: SYSTEM SYST EM on 11-23-2021 Glucose [Mass/Vol] 204 mg/dL High 82-115 Rap id Comm SS Comment on above: Performed By: #### K #### [place] [address] HCTRPon 11-23-2021 Hematocrit (Bld) [Volume fraction] 29.0 % Low 37.0-47.0 [facility] ([place]) Comment on above: Performed By: #### H CTRP, HGBRP, GLURP, CLRP, NARP, BGRP, KRP, CARP #### [place] [address] Hematocrit (Bld) [Volume fraction] 29.0 % Low 37.0-47.0 [facility] ([place]) Comment on above: Performed By: #### H CTRP, HGBRP, GLURP, CLRP, NARP, BGRP, KRP, CARP #### [place] [address] Hematocrit (Bld) [Volume fraction] 37.0 % Normal 37.0-47.0 [facility] ([place]) Comment on above: Performed By: #### H CTRP, HGBRP, GLURP, CLRP, NARP, BGRP, KRP, CARP #### [place] [address] Hematocrit (Bld) [Volume fraction] 40.0 % Normal 37.0-47.0 [facility] ([place]) Comment on above: Performed By: #### H CTRP, HGBRP, GLURP, CLRP, NARP, BGRP, KRP, CARP #### [place] [address] HCTRPOrdered By: SYSTEM SYST EM on 11-23-2021 Hematocrit (Bld) [Volume fraction] 28.0 % Low 37.0-47.0 Rapid Comm SS Comment on above: Performed By: #### K #### [place] [address] HGBRPon 11-23-2021 Hemoglobin (POC) 9.8 G/dL Low 12.0-16.0 [facility] ([place]) Comment on above: Performed By: #### H CTRP, HGBRP, GLURP, CLRP, NARP, BGRP, KRP, CARP #### [address] [address] Hemoglobin (POC) 9.9 G/dL Low 12.0-16.0 [facility] ([place]) Comment on above: Performed By: #### H CTRP, HGBRP, GLURP, CLRP, NARP, BGRP, KRP, CARP #### [place] [id number] Hemoglobin (POC) 9.5 G/dL Low 12.0-16.0 [facility] ([place]) Comment on above: Performed By: #### K #### [place] [address] Hemoglobin (POC) 12.5 G/dL Normal 12.0-16.0 [facility] ([place]) Comment on above: Performed By: #### H CTRP, HGBRP, GLURP, CLRP, NARP, BGRP, KRP, CARP #### [place] [address] Hemoglobin (POC) 13.7 G/dL Normal 12.0-16.0 [facility] ([place]) Comment on above: Performed By: #### H CTRP, HGBRP, GLURP, CLRP, NARP, BGRP, KRP, CARP #### [place] [id number] Jayden 11-23-2021 Potassium [Moles/Vol] 4.2 mmol/L Normal 3.5-5.0 [facility] ([place]) Comment on above: Performed By: #### H CTRP, HGBRP, GLURP, CLRP, NARP, BGRP, KRP, CARP #### [place] [address] KRPon 11-23-2021 Potassium [Moles/Vol] 4.2 mmol/L Normal 3.5-5.0 [facility] ([place]) Comment on above: Performed By: #### H CTRP, HGBRP, GLURP, CLRP, NARP, BGRP, KRP, CARP #### [place] [address] Potassium [Moles/Vol] 4.3 mmol/L Normal 3.5-5.0 [facility] ([place]) Comment on above: Performed By: #### H CTRP, HGBRP, GLURP, CLRP, NARP, BGRP, KRP, CARP #### [place] [address] Potassium [Moles/Vol] 4.2 mmol/L Normal 3.5-5.0 [facility] ([place]) Comment on above: Performed By: #### H CTRP, HGBRP, GLURP, CLRP, NARP, BGRP, KRP, CARP #### [place] [address] Potassium [Moles/Vol] 3.9 mmol/L Normal 3.5-5.0 [facility] ([place]) Comment on above: Performed By: #### H CTRP, HGBRP, GLURP, CLRP, NARP, BGRP, KRP, CARP #### [place] [address] KRPOrdered By: SYSTEM SYSTEM on 11-23-2021 Potassium [Moles/Vol] 5.1 mmol/L High 3.5-5.0 AH Rapid Comm SS Comment on above: Performed By: #### K #### [place] [address] LABORATORYOrdered By: Angie Mujica on 11-23-2021 aPTT [...] 1.32 mmol/L Auto Chem SS LABORATORYOrdered By: Pets are family too SYSTEM on 11-23-2021 Magnesium [Mass/Vol] 2.5 mg/dL [...] 11-23-2021 Magnesium [Mass/Vol] 2.5 mg/dL High 1.6-2.4 [facility] ([place]) Comment on above: Performed By: #### H CTRP, HGBRP, GLURP, CLRP, NARP, BGRP, KRP, CARP #### [facility] [address] [place] [address] NARPon 11-23-2021 Sodium [Moles/Vol] 134 mmol/L Low 136-145 [facility] ([place]) Comment on above: Performed By: #### H CTRP, HGBRP, GLURP, CLRP, NARP, BGRP, KRP, CARP #### [place] [id number] Sodium [Moles/Vol] 132 mmol/L Low 136-145 [facility] ([place]) Comment on above: Performed By: #### H CTRP, HGBRP, GLURP, CLRP, NARP, BGRP, KRP, CARP #### [place] [address] Sodium [Moles/Vol] 132 mmol/L Low 136-145 [facility] ([place]) Comment on above: Performed By: #### K #### [place] [address] Sodium [Moles/Vol] 134 mmol/L Low 136-145 [facility] ([place]) Comment on above: Performed By: #### H CTRP, HGBRP, GLURP, CLRP, NARP, BGRP, KRP, CARP #### [place] [address] Sodium [Moles/Vol] 136 mmol/L Normal 136-145 [facility] ([place]) Comment on above: Performed By: #### H CTRP, HGBRP, GLURP, CLRP, NARP, BGRP, KRP, CARP #### [place] [address] PHOSon 11-23-2021 Phosphate [Mass/Vol] 1.5 mg/dL Low 2.4-5.1 [facility] ([place]) Comment on above: Result Comment: No te - New Reference Range in effect 19 Performed By: #### H CTRP, HGBRP, GLURP, CLRP, NARP, BGRP, KRP, CARP #### [place] [address] PLTon 11-23-2021 Platelet 283 10 3/mcL Normal 150-450 [facility] ([place]) Comment on above: Performed By: #### H CTRP, HGBRP, GLURP, CLRP, NARP, BGRP, KRP, CARP #### [place] [address] PROon 11-23-2021 INR Coag (PPP) [Relative time] 1.1 {INR} Normal [facility] ([place]) Comment on above: Result Comment: [employer] (CHEST, 1991, [id number]) recommended therapeutic range for oral anticoagulant therapy is: LOW RISK: Prophylaxis of venous thrombosis INR: 2.0-3.0 Treatment of pulmonary embolism 2.0-3.0 Prevention of systemic embolism 2.0-3.0 HIGH RISK: Mechanical prosthetic valves 2.5-3.5 Performed By: #### H CTRP, HGBRP, GLURP, CLRP, NARP, BGRP, KRP, CARP #### [facility] [address] [place] [id number] PT Coag (PPP) [Time] 13.1 s Normal 9.0-14.9 [facility] ([place]) Comment on above: Result Comment: Effe ctive 09/30/07, Protime results may be affected by some antibiotics (i.e. Ciprofloxacin, Azithromycin, Bactrim) which may potentiate the action of oral anticoagulants, with further increases in Protime/INR. Performed By: #### H CTRP, HGBRP, GLURP, CLRP, NARP, BGRP, KRP, CARP #### [address] [address] INR Coag (PPP) [Relative time] 0.9 {INR} Normal [facility] ([place]) Comment on above: Result Comment: [employer] (CHEST, 1991, [id number]) recommended therapeutic range for oral anticoagulant therapy is: LOW RISK: Prophylaxis of venous thrombosis INR: 2.0-3.0 Treatment of pulmonary embolism 2.0-3.0 Prevention of systemic embolism 2.0-3.0 HIGH RISK: Mechanical prosthetic valves 2.5-3.5 Performed By: #### H CTRP, HGBRP, GLURP, CLRP, NARP, BGRP, KRP, CARP #### [facility] [address] [place] [id number] PT Coag (PPP) [Time] 10.8 s Normal 9.0-14.9 [facility] ([place]) Comment on above: Result Comment: Effe ctive 09/30/07, Protime results may be affected by some antibiotics (i.e. Ciprofloxacin, Azithromycin, Bactrim) which may potentiate the action of oral anticoagulants, with further increases in Protime/INR. Performed By: #### H CTRP, HGBRP, GLURP, CLRP, NARP, BGRP, KRP, CARP #### [address] [address] Platelet (Product)on Platelet Product Ready Platelet Ready fo r Pickup Normal [facility] ([place]) Comment on above: Order Comment: ON HO LD FOR CVOR Performed By: #### H CTRP, HGBRP, GLURP, CLRP, NARP, BGRP, KRP, CARP #### [address] [address] RBC (Product)on 11-23-2021 RBC Product Ready RBC Ready for Pickup Normal [facility] ([place]) Comment on above: Performed By: #### H CTRP, HGBRP, GLURP, CLRP, NARP, BGRP, KRP, CARP #### [address] [address] XR CHEST 1 VIEWon 11-23-2021 XR CHEST [...] 11/23/2021 1:40:56 PM Ordering Provider: POLLY Mercado [facility] ([place]) [id number] 11-17-2021 SARS-CoV-2 (COVID-19) RNA SLOAN+probe Ql (Unsp spec) Negative Normal Negative [facility] ([place]) Comment on above: Performed By: #### H CTRP, HGBRP, GLURP, CLRP, NARP, BGRP, KRP, CARP #### [address] [address] SARS-CoV-2 (COVID-19) RNA SLOAN+probe Ql (Unsp spec) Normal [facility] ([place]) Comment on above: Result Comment: Nega tive [...] GLURP, CLRP, NARP, BGRP, KRP, CARP #### [address] [address] Date of Onset [id number] Invalid Interpretation Code [facility] ([place]) Comment on above: Performed By: #### H CTRP, HGBRP, GLURP, CLRP, NARP, BGRP, KRP, CARP #### [place] [address] 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 license of [facility] ([place]) Comment on above: Performed By: #### H CTRP, HGBRP, GLURP, CLRP, NARP, BGRP, KRP, CARP #### [place] [address] First Test No [facility] ([place]) Comment on above: Performed By: #### H CTRP, HGBRP, GLURP, CLRP, NARP, BGRP, KRP, CARP #### [place] [address] Hospitalized No [facility] ([place]) Comment on above: Performed By: #### H CTRP, HGBRP, GLURP, CLRP, NARP, BGRP, KRP, CARP #### [place] [address] ICU No [facility] ([place]) Comment on above: Performed By: #### H CTRP, HGBRP, GLURP, CLRP, NARP, BGRP, KRP, CARP #### [place] [address] Not [facility] ([place]) Comment on above: Performed By: #### H CTRP, HGBRP, GLURP, CLRP, NARP, BGRP, KRP, CARP #### [place] [address] Resides in Congregate Care Setting [facility] ([place]) Comment on above: Performed By: #### H CTRP, HGBRP, GLURP, CLRP, NARP, BGRP, KRP, CARP #### [place] [address] Symptomatic as Defined by [facility] No [facility] ([place]) Comment on above: Performed By: #### H CTRP, HGBRP, GLURP, CLRP, NARP, BGRP, KRP, CARP #### [place] [address] LABORATORYOrdered By: Emily Gee on 11-17-2021 ADMITTED [...] Auto (Unsp spec) [#/Vol] 3.11 10*3/uL 0.83-4.51 [facility] Work Phone: Basophil percentageon 2021 Basophils/100 WBC (Bld) 0.6 % 0-1 [facility] Work Phone: Chloride [Moles/Vol] 102 mmol/L 98-107 [facility] Work Phone: Eosinophils/100 WBC (Bld) 1.7 % 0-5 [facility] Work Phone: Glucose [Mass/Vol] 183 mg/dL 74-106 [facility] Work Phone: Comment on above: Fasting Glucose resu lt greater than or equal to 126 mg/dL suggests DIABETES MELLITUS per A.D.A. criteria. Neutrophils (Bld) [#/Vol] 11.0 10*3/uL 2.0-7.7 [facility] Work Phone: Neutrophils/100 WBC (Bld) 70.1 % 47-70 [facility] Work Phone: Potassium [Moles/Vol] 4.1 mmol/L 3.5-5.1 [facility] Work Phone: Sodium [Moles/Vol] 136 mmol/L 136-145 [facility] Work Phone: WBC (Bld) [#/Vol] 15.7 10*3/uL 4.4-11.0 [facility] Work Phone: Blood erythrocytes count (nu mber/volume)on 11-05-2021 RBC (Bld) [#/Vol] 4.84 10*6/uL 4.2-5.4 [facility] Work Phone: Blood hemoglobin measurement (mass/volume)on 11-05-2021 Hemoglobin (Bld) [Mass/Vol] 14.4 g/dL 12.0-15.0 [facility] Work Phone: Blood lymphocytes/100 leukoc yteson 11-05-2021 Lymphocytes/100 WBC (Bld) 19.8 % 19-41 [facility] Work Phone: Blood monocytes/100 leukocyt eson 11-05-2021 Monocytes/100 WBC (Bld) 6.9 % 0-10 [facility] Work Phone: Blood platelet mean volumeon 11-05-2021 Platelet mean volume (Bld) [Entitic vol] 10.2 fL 6.2-12.0 [facility] Work Phone: Determination of erythrocyte mean corpuscular volume (MCV)on 11-05-2021 MCV (RBC) [Entitic vol] 91.3 fL 81-99 [facility] Work Phone: Hematocrit Auto (Bld) [Volum e fraction]on 11-05-2021 Hematocrit (Bld) [Volume fraction] 44.2 % 37-47 [facility] Work Phone: Laboratory - Chemistry and C hemistry - challengeon 11-05-2021 CO2 [Moles/Vol] 27.0 mmol/L 21.0-32.0 [facility] Work Phone: Urea nitrogen/Creatinine [Mass ratio] 19.9 mg/mg 10-20 [facility] Work Phone: Laboratory - Coagulationon 0 11-05-2021 aPTT Coag (Bld) [Time] 25.6 s 24.1-36.2 [facility] Work Phone: Laboratory - Hematology and Cell countson 11-05-2021 Erythrocyte distribution width (RBC) [Entitic vol] 44.1 fL 35.1-43.9 [facility] Work Phone: Erythrocyte distribution width (RBC) [Ratio] 13.1 % 11.6-14.6 [facility] Work Phone: Immature granulocytes/100 WBC (Bld) 0.900 % 0.0-0.9 [facility] Work Phone: Comment on above: IG% - Immature Granu locytes (promyelocytes, myelocytes and metamyelocytes) > 1% indicates that a LEFT SHIFT is Present. MCH (RBC) [Entitic mass] 29.8 pg 27.0-32.0 [facility] Work Phone: [phone] Nucleated RBC/100 WBC (Bld) [Ratio] 0 % 0-5 [facility] Work Phone: [phone] MCHC Auto (RBC) [Mass/Vol]on 11-05-2021 MCHC (RBC) [Mass/Vol] 32.6 g/dL 32-36 [facility] Work Phone: No Panel Informationon 11-05 Estimated Creatinine Clearance Calc 51.75 ml/min [facility] Work Phone: [phone] Estimated GFR (MDRD) Amer 91 mL/min >60 [facility] Work Phone: Comment on above: GFR Calc Estimated GFR (MDRD) Non-Af Amer 75 mL/min >60 [facility] Work Phone: [phone] Comment on above: Non- GFR Calc Troponin I High Sensitivity 12 pg/mL 3.0-54.0 [facility] Work Phone: [phone] Comment on above: Please Note: New [place] t Units and Gender Specific Reference Ranges. For more information see Policy Stat Procedure [place] High Sensitivity Troponin (TNIH) and attachments. Platelets bldon 11-05-2021 Platelets (Bld) [#/Vol] 320 10*3/uL 150-450 [facility] Work Phone: [phone] Serum or plasma calcium betsy urement (mass/volume)on 11-05-2021 Calcium [Mass/Vol] 9.6 mg/dL 8.5-10.1 [facility] Work Phone: [phone] Serum or plasma creatinine m easurement (mass/volume)on 11-05-2021 Creatinine [Mass/Vol] 0.80 mg/dL 0.55-1.02 [facility] Work Phone: [phone] Comment on above: The validity of the calculated GFR & GFRAA in patients over 70 years has not been determined. Clinical correlation is essential. Serum or plasma urea nitroge n measurement (mass/volume)on 11-05-2021 Urea nitrogen [Mass/Vol] 16 mg/dL -18 [facility] Work Phone: Thin prep Papanicolaou smear with manual screeningon 11-05-2021 Thin prep Papanicolaou smear with manual screening 7 5-15 [facility] Work Phone: XR CHEST 2 VIEWSon XR [...] 11/01/2021 8:01:10 AM Ordering Provider: POLLY PHILIPPE [facility] ([place]) .Auto Diffon 10-31-2021 Basophil, Absolute 0.1 10 3/mcL Normal 0.0-0.3 [facility] ([place]) Comment on above: Performed By: #### H CTRP, HGBRP, GLURP, CLRP, NARP, BGRP, KRP, CARP #### [facility] [address] [place] [id number] Basophils/100 WBC (Bld) 0.8 % Normal 0.0-2.5 A [facility] ([place]) Comment on above: Performed By: #### H CTRP, HGBRP, GLURP, CLRP, NARP, BGRP, KRP, CARP #### [address] [address] Eosinophil, Absolute 0.3 10 3/mcL Normal 0.0-0.7 [facility] ([place]) Comment on above: Performed By: #### H CTRP, HGBRP, GLURP, CLRP, NARP, BGRP, KRP, CARP #### [address] [address] Eosinophils/100 WBC (Bld) 2.6 % Normal 0.0-6.0 [facility] ([place]) Comment on above: Performed By: #### H CTRP, HGBRP, GLURP, CLRP, NARP, BGRP, KRP, CARP #### [address] [address] Lymphocyte, Absolute 2.5 10 3/mcL Normal 0.9-4.3 [facility] ([place]) Comment on above: Performed By: #### H CTRP, HGBRP, GLURP, CLRP, NARP, BGRP, KRP, CARP #### [address] [address] Lymphocytes/100 WBC (Bld) 22.3 % Normal 20.0-40.0 [facility] ([place]) Comment on above: Performed By: #### H CTRP, HGBRP, GLURP, CLRP, NARP, BGRP, KRP, CARP #### [address] [address] Monocyte, Absolute 0.7 10 3/mcL Normal 0.1-1.4 [facility] ([place]) Comment on above: Performed By: #### H CTRP, HGBRP, GLURP, CLRP, NARP, BGRP, KRP, CARP #### [address] [address] Monocytes/100 WBC (Bld) 6.5 % Normal 2.0-13.0 [facility] ([place]) Comment on above: Performed By: #### H CTRP, HGBRP, GLURP, CLRP, NARP, BGRP, KRP, CARP #### [address] [address] Neutrophils/100 WBC (Bld) 67.8 % Normal 50.0-75.0 [facility] ([place]) Comment on above: Performed By: #### H CTRP, HGBRP, GLURP, CLRP, NARP, BGRP, KRP, CARP #### [address] [address] .GFRon 10-31-2021 GFR Non- >60 Normal [facility] ([place]) Comment on above: Result Comment: GFR Population [...] GLURP, CLRP, NARP, BGRP, KRP, CARP #### [address] [address] GFR >60 Normal [facility] ([place]) Comment on above: Result Comment: GFR Population [...] GLURP, CLRP, NARP, BGRP, KRP, CARP #### [place] [address] .MDWon 10-31-2021 Monocyte Distribution Width Not performed Normal 0.00-20.00 [facility] ([place]) Comment on above: Result Comment: MDW testing performed only on adult ER patients between the ages of 18-89 years. Performed By: #### H CTRP, HGBRP, GLURP, CLRP, NARP, BGRP, KRP, CARP #### [place] [address] .NEUABSon 10-31-2021 Neutrophil, Absolute 7.7 10 3/mcL Normal 2.3-8.1 [facility] ([place]) Comment on above: Performed By: #### H CTRP, HGBRP, GLURP, CLRP, NARP, BGRP, KRP, CARP #### [place] [address] A1Con 10-31-2021 HbA1c (Bld) [Mass fraction] 9.7 % High 4.0-6.0 [facility] ([place]) Comment on above: Performed By: #### H CTRP, HGBRP, GLURP, CLRP, NARP, BGRP, KRP, CARP #### [place] [address] ABO/Rh (Gel)on 10-31-2021 ABO/Rh Interp Positive Invalid Interpretation Code [facility] ([place]) Comment on above: Performed By: #### H CTRP, HGBRP, GLURP, CLRP, NARP, BGRP, KRP, CARP #### [place] [id number] ABS (Gel)on 10-31-2021 ABSC Interp (Gel) Negative Normal [facility] ([place]) Comment on above: Performed By: #### H CTRP, HGBRP, GLURP, CLRP, NARP, BGRP, KRP, CARP #### [place] [id number] APTTon 10-31-2021 aPTT Coag (Bld) [Time] 28.2 s Normal 25.0-35.0 [facility] ([place]) Comment on above: Result Comment: For Heparin anticoagulation therapy, the recommended therapeutic range is: 54-77 seconds (APTT Correlation with Anti-Xa therapeutic range of 0.3-0.7 units/ml). PLEASE REFERENCE THE PHARMACY PROTOCOL FOR DOSING. Performed By: #### H CTRP, HGBRP, GLURP, CLRP, NARP, BGRP, KRP, CARP #### [place] [address] Heparin dose (APTT) None Normal [facility] ([place]) Comment on above: Performed By: #### H CTRP, HGBRP, GLURP, CLRP, NARP, BGRP, KRP, CARP #### [place] [address] CBCon 10-31-2021 Erythrocyte distribution width (RBC) [Ratio] 13.6 % Normal 11.5-15.5 [facility] ([place]) Comment on above: Performed By: #### H CTRP, HGBRP, GLURP, CLRP, NARP, BGRP, KRP, CARP #### [place] [address] Hematocrit (Bld) [Volume fraction] 40.5 % Normal 34.0-46.0 [facility] ([place]) Comment on above: Performed By: #### H CTRP, HGBRP, GLURP, CLRP, NARP, BGRP, KRP, CARP #### [place] [address] Hgb 13.4 G/dL Normal 12.0-16.0 [facility] ([place]) Comment on above: Performed By: #### H CTRP, HGBRP, GLURP, CLRP, NARP, BGRP, KRP, CARP #### [place] [address] MCH (RBC) [Entitic mass] 29.8 pg Normal 27.0-33.0 [facility] ([place]) Comment on above: Performed By: #### H CTRP, HGBRP, GLURP, CLRP, NARP, BGRP, KRP, CARP #### [place] [id number] MCHC 33.1 G/dL Normal 32.0-36.0 [facility] ([place]) Comment on above: Performed By: #### H CTRP, HGBRP, GLURP, CLRP, NARP, BGRP, KRP, CARP #### [place] [address] MCV (RBC) [Entitic vol] 90.0 fL Normal 80.0-99.0 A [facility] ([place]) Comment on above: Performed By: #### H CTRP, HGBRP, GLURP, CLRP, NARP, BGRP, KRP, CARP #### [place] [address] Platelet 291 10 3/mcL Normal 150-450 [facility] ([place]) Comment on above: Performed By: #### H CTRP, HGBRP, GLURP, CLRP, NARP, BGRP, KRP, CARP #### [place] [address] Platelet mean volume (Bld) [Entitic vol] 8.9 fL Normal 6.6-10.5 [facility] ([place]) Comment on above: Performed By: #### H CTRP, HGBRP, GLURP, CLRP, NARP, BGRP, KRP, CARP #### [place] [address] RBC 4.50 10 6/mcL Normal 4.10-5.30 [facility] ([place]) Comment on above: Performed By: #### H CTRP, HGBRP, GLURP, CLRP, NARP, BGRP, KRP, CARP #### [place] [address] WBC 11.4 10 3/mcL High 4.5-10.8 [facility] ([place]) Comment on above: Performed By: #### H CTRP, HGBRP, GLURP, CLRP, NARP, BGRP, KRP, CARP #### [address] [address] CMPon 10-31-2021 Albumin Level 3.4 G/dL Normal 3.2-4.8 [facility] ([place]) Comment on above: Performed By: #### H CTRP, HGBRP, GLURP, CLRP, NARP, BGRP, KRP, CARP #### [address] [address] Albumin/Globulin [Mass ratio] 1.0 {ratio} Normal 0.9-1.6 [facility] ([place]) Comment on above: Performed By: #### H CTRP, HGBRP, GLURP, CLRP, NARP, BGRP, KRP, CARP #### [address] [address] ALP [Catalytic activity/Vol] 113 U/L Normal 38-126 [facility] ([place]) Comment on above: Performed By: #### H CTRP, HGBRP, GLURP, CLRP, NARP, BGRP, KRP, CARP #### [address] [address] ALT [Catalytic activity/Vol] 25 U/L Normal 10-49 [facility] ([place]) Comment on above: Performed By: #### H CTRP, HGBRP, GLURP, CLRP, NARP, BGRP, KRP, CARP #### [address] [address] AST [Catalytic activity/Vol] 24 U/L Normal 8-34 [facility] ([place]) Comment on above: Performed By: #### H CTRP, HGBRP, GLURP, CLRP, NARP, BGRP, KRP, CARP #### [address] [address] Bili Total 0.50 mg/dL Normal 0.20-1.20 [facility] ([place]) Comment on above: Result Comment: Use of this assay is not recommended for patients undergoing treatment with eltrombopag due to the potential for falsely elevated results. Performed By: #### H CTRP, HGBRP, GLURP, CLRP, NARP, BGRP, KRP, CARP #### [address] [address] BUN/Creatinine Ratio 27.6 ratio High 10.0-22.0 [facility] ([place]) Comment on above: Performed By: #### H CTRP, HGBRP, GLURP, CLRP, NARP, BGRP, KRP, CARP #### [address] [address] Calcium [Mass/Vol] 9.6 mg/dL Normal 8.7-10.4 [facility] ([place]) Comment on above: Performed By: #### H CTRP, HGBRP, GLURP, CLRP, NARP, BGRP, KRP, CARP #### [address] [address] Chloride [Moles/Vol] 98 mmol/L Normal 98-110 [facility] ([place]) Comment on above: Performed By: #### H CTRP, HGBRP, GLURP, CLRP, NARP, BGRP, KRP, CARP #### [address] [address] CO2 [Moles/Vol] 31 mmol/L Normal 22-32 [facility] ([place]) Comment on above: Performed By: #### H CTRP, HGBRP, GLURP, CLRP, NARP, BGRP, KRP, CARP #### [address] [address] Creatinine [Mass/Vol] 0.76 mg/dL Normal 0.50-1.20 [facility] ([place]) Comment on above: Performed By: #### H CTRP, HGBRP, GLURP, CLRP, NARP, BGRP, KRP, CARP #### [address] [address] Electrolyte Balance 5.0 mEq/L Normal 4.0-15.0 [facility] ([place]) Comment on above: Performed By: #### H CTRP, HGBRP, GLURP, CLRP, NARP, BGRP, KRP, CARP #### [address] [address] Globulin 3.5 G/dL Normal 1.5-3.8 [facility] ([place]) Comment on above: Performed By: #### H CTRP, HGBRP, GLURP, CLRP, NARP, BGRP, KRP, CARP #### [address] [address] Glucose [Mass/Vol] 233 mg/dL High 82-115 [facility] ([place]) Comment on above: Performed By: #### H CTRP, HGBRP, GLURP, CLRP, NARP, BGRP, KRP, CARP #### [address] [address] Potassium [Moles/Vol] 5.0 mmol/L Normal 3.5-5.0 [facility] ([place]) Comment on above: Performed By: #### H CTRP, HGBRP, GLURP, CLRP, NARP, BGRP, KRP, CARP #### [address] [address] Sodium [Moles/Vol] 134 mmol/L Low 136-145 [facility] ([place]) Comment on above: Performed By: #### H CTRP, HGBRP, GLURP, CLRP, NARP, BGRP, KRP, CARP #### [address] [address] Total Protein 6.9 G/dL Normal 5.7-8.2 [facility] ([place]) Comment on above: Result Comment: No te - New Reference Range in effect 19 Performed By: #### H CTRP, HGBRP, GLURP, CLRP, NARP, BGRP, KRP, CARP #### [address] [address] Urea nitrogen [Mass/Vol] 21.0 mg/dL Normal 8.0-22.0 [facility] ([place]) Comment on above: Performed By: #### H CTRP, HGBRP, GLURP, CLRP, NARP, BGRP, KRP, CARP #### [address] [address] FIBon 10-31-2021 Fibrinogen 504 mg/dL Normal 250-560 [facility] ([place]) Comment on above: Performed By: #### H CTRP, HGBRP, GLURP, CLRP, NARP, BGRP, KRP, CARP #### [address] [address] PROon 10-31-2021 INR Coag (PPP) [Relative time] 0.9 {INR} Normal [facility] ([place]) Comment on above: Result Comment: [employer] (CHEST, 1992, [id number]) recommended therapeutic range for oral anticoagulant therapy is: LOW RISK: Prophylaxis of venous thrombosis INR: 2.0-3.0 Treatment of pulmonary embolism 2.0-3.0 Prevention of systemic embolism 2.0-3.0 HIGH RISK: Mechanical prosthetic valves 2.5-3.5 Performed By: #### H CTRP, HGBRP, GLURP, CLRP, NARP, BGRP, KRP, CARP #### [address] [address] PT Coag (PPP) [Time] 10.9 s Normal 9.0-14.9 [facility] ([place]) Comment on above: Result Comment: Effe ctive 09/30/07, Protime results may be affected by some antibiotics (i.e. Ciprofloxacin, Azithromycin, Bactrim) which may potentiate the action of oral anticoagulants, with further increases in Protime/INR. Performed By: #### H CTRP, HGBRP, GLURP, CLRP, NARP, BGRP, KRP, CARP #### [address] [address] TSHon 10-31-2021 TSH 9.830 mIU/mL High 0.550-4.780 [facility] ([place]) Comment on above: Result Comment: No te - New Reference Range in effect 19 Performed By: #### H CTRP, HGBRP, GLURP, CLRP, NARP, BGRP, KRP, CARP #### [address] [address] UAon 10-31-2021 Color (U) Straw Normal [facility] ([place]) Comment on above: Performed By: #### H CTRP, HGBRP, GLURP, CLRP, NARP, BGRP, KRP, CARP #### [address] [address] Glucose (U) [Mass/Vol] 500 mg/dL Abnormal Negative [facility] ([place]) Comment on above: Performed By: #### H CTRP, HGBRP, GLURP, CLRP, NARP, BGRP, KRP, CARP #### [place] [address] Ketones Ql (U) Negative Normal Neg-Trace [facility] ([place]) Comment on above: Performed By: #### H CTRP, HGBRP, GLURP, CLRP, NARP, BGRP, KRP, CARP #### [place] [address] UA Appear Clear Normal Clear [facility] ([place]) Comment on above: Performed By: #### H CTRP, HGBRP, GLURP, CLRP, NARP, BGRP, KRP, CARP #### [place] [address] UA Blood Negative Normal Neg-Trace [facility] ([place]) Comment on above: Performed By: #### H CTRP, HGBRP, GLURP, CLRP, NARP, BGRP, KRP, CARP #### [place] [id number] UA Leuk Est Small Abnormal Negative [facility] ([place]) Comment on above: Performed By: #### H CTRP, HGBRP, GLURP, CLRP, NARP, BGRP, KRP, CARP #### [place] [id number] UA Nitrite Negative Normal Negative [facility] ([place]) Comment on above: Performed By: #### H CTRP, HGBRP, GLURP, CLRP, NARP, BGRP, KRP, CARP #### [place] [address] UA pH 5.5 Normal 5.0 - 8.0 [facility] ([place]) Comment on above: Performed By: #### H CTRP, HGBRP, GLURP, CLRP, NARP, BGRP, KRP, CARP #### [address] [address] UA Protein Negative Normal Negative [facility] ([place]) Comment on above: Performed By: #### H CTRP, HGBRP, GLURP, CLRP, NARP, BGRP, KRP, CARP #### [address] [address] UA Spec Grav 1.010 Normal 1.006-1.029 [facility] ([place]) Comment on above: Performed By: #### H CTRP, HGBRP, GLURP, CLRP, NARP, BGRP, KRP, CARP #### [place] [address] UA Specimen Type Clean Catch Normal [facility] ([place]) Comment on above: Performed By: #### H CTRP, HGBRP, GLURP, CLRP, NARP, BGRP, KRP, CARP #### [address] [address] UA Urobilinogen 0.2 E.U./dL Normal 0.2-1.0 [facility] ([place]) Comment on above: Performed By: #### H CTRP, HGBRP, GLURP, CLRP, NARP, BGRP, KRP, CARP #### [place] [address] Urobilinogen (U) [Mass/Vol] Negative Normal Neg-Trace [facility] ([place]) Comment on above: Performed By: #### H CTRP, HGBRP, GLURP, CLRP, NARP, BGRP, KRP, CARP #### [address] [address] UAMICon 10-31-2021 UA RBC Negative Normal 0-2 [facility] ([place]) Comment on above: Performed By: #### H CTRP, HGBRP, GLURP, CLRP, NARP, BGRP, KRP, CARP #### [address] [address] UA Squam Epithelial Negative Normal 0-20 [facility] ([place]) Comment on above: Performed By: #### H CTRP, HGBRP, GLURP, CLRP, NARP, BGRP, KRP, CARP #### [address] [address] UA WBC Rare Normal 0-5 [facility] ([place]) Comment on above: Performed By: #### H CTRP, HGBRP, GLURP, CLRP, NARP, BGRP, KRP, CARP #### [address] [address] .Auto Diffon 10-11-2021 Basophil, Absolute 0.1 10 3/mcL Normal 0.0-0.3 [facility] ([place]) Comment on above: Performed By: #### H CTRP, HGBRP, GLURP, CLRP, NARP, BGRP, KRP, CARP #### [address] [address] Basophils/100 WBC (Bld) 0.4 % Normal 0.0-2.5 A [facility] ([place]) Comment on above: Performed By: #### H CTRP, HGBRP, GLURP, CLRP, NARP, BGRP, KRP, CARP #### [address] [address] Eosinophil, Absolute 0.3 10 3/mcL Normal 0.0-0.7 [facility] ([place]) Comment on above: Performed By: #### H CTRP, HGBRP, GLURP, CLRP, NARP, BGRP, KRP, CARP #### [address] [address] Eosinophils/100 WBC (Bld) 2.2 % Normal 0.0-6.0 [facility] ([place]) Comment on above: Performed By: #### H CTRP, HGBRP, GLURP, CLRP, NARP, BGRP, KRP, CARP #### [address] [address] Lymphocyte, Absolute 2.8 10 3/mcL Normal 0.9-4.3 [facility] ([place]) Comment on above: Performed By: #### H CTRP, HGBRP, GLURP, CLRP, NARP, BGRP, KRP, CARP #### [address] [address] Lymphocytes/100 WBC (Bld) 22.2 % Normal 20.0-40.0 [facility] ([place]) Comment on above: Performed By: #### H CTRP, HGBRP, GLURP, CLRP, NARP, BGRP, KRP, CARP #### [address] [address] Monocyte, Absolute 1.0 10 3/mcL Normal 0.1-1.4 [facility] ([place]) Comment on above: Performed By: #### H CTRP, HGBRP, GLURP, CLRP, NARP, BGRP, KRP, CARP #### [address] [address] Monocytes/100 WBC (Bld) 7.7 % Normal 2.0-13.0 A [facility] ([place]) Comment on above: Performed By: #### H CTRP, HGBRP, GLURP, CLRP, NARP, BGRP, KRP, CARP #### [address] [address] Neutrophils/100 WBC (Bld) 67.5 % Normal 50.0-75.0 [facility] ([place]) Comment on above: Performed By: #### H CTRP, HGBRP, GLURP, CLRP, NARP, BGRP, KRP, CARP #### [address] [address] .GFRon 10-11-2021 GFR Non- >60 Normal [facility] ([place]) Comment on above: Result Comment: GFR Population [...] GLURP, CLRP, NARP, BGRP, KRP, CARP #### [address] [address] GFR >60 Normal [facility] ([place]) Comment on above: Result Comment: GFR Population [...] GLURP, CLRP, NARP, BGRP, KRP, CARP #### [address] [address] .MDWon 10-11-2021 Monocyte Distribution Width 19.02 Normal 0.00-20.00 [facility] ([place]) Comment on above: Result Comment: For ED adult patients suspected of sepsis, MDW<=20.0 does not rule out sepsis or risk of sepsis Performed By: #### H CTRP, HGBRP, GLURP, CLRP, NARP, BGRP, KRP, CARP #### [address] [address] .NEUABSon 10-11-2021 Neutrophil, Absolute 8.4 10 3/mcL High 2.3-8.1 [facility] ([place]) Comment on above: Performed By: #### H CTRP, HGBRP, GLURP, CLRP, NARP, BGRP, KRP, CARP #### [address] [address] CBCon 10-11-2021 Erythrocyte distribution width (RBC) [Ratio] 13.6 % Normal 11.5-15.5 [facility] ([place]) Comment on above: Performed By: #### H CTRP, HGBRP, GLURP, CLRP, NARP, BGRP, KRP, CARP #### [place] [address] Hematocrit (Bld) [Volume fraction] 41.1 % Normal 34.0-46.0 [facility] ([place]) Comment on above: Performed By: #### H CTRP, HGBRP, GLURP, CLRP, NARP, BGRP, KRP, CARP #### [place] [address] Hgb 13.4 G/dL Normal 12.0-16.0 [facility] ([place]) Comment on above: Performed By: #### H CTRP, HGBRP, GLURP, CLRP, NARP, BGRP, KRP, CARP #### [place] [address] MCH (RBC) [Entitic mass] 29.5 pg Normal 27.0-33.0 [facility] ([place]) Comment on above: Performed By: #### H CTRP, HGBRP, GLURP, CLRP, NARP, BGRP, KRP, CARP #### [place] [id number] MCHC 32.7 G/dL Normal 32.0-36.0 [facility] ([place]) Comment on above: Performed By: #### H CTRP, HGBRP, GLURP, CLRP, NARP, BGRP, KRP, CARP #### [place] [id number] MCV (RBC) [Entitic vol] 90.1 fL Normal 80.0-99.0 A [facility]ly [facility], [facility] ([place]) Comment on above: Performed By: #### H CTRP, HGBRP, GLURP, CLRP, NARP, BGRP, KRP, CARP #### [address] [address] Platelet 291 10 3/mcL Normal 150-450 [facility] ([place]) Comment on above: Performed By: #### H CTRP, HGBRP, GLURP, CLRP, NARP, BGRP, KRP, CARP #### [address] [address] Platelet mean volume (Bld) [Entitic vol] 8.4 fL Normal 6.6-10.5 [facility] ([place]) Comment on above: Performed By: #### H CTRP, HGBRP, GLURP, CLRP, NARP, BGRP, KRP, CARP #### [address] [address] RBC 4.56 10 6/mcL Normal 4.10-5.30 [facility] ([place]) Comment on above: Performed By: #### H CTRP, HGBRP, GLURP, CLRP, NARP, BGRP, KRP, CARP #### [address] [address] WBC 12.5 10 3/mcL High 4.5-10.8 [facility] ([place]) Comment on above: Performed By: #### H CTRP, HGBRP, GLURP, CLRP, NARP, BGRP, KRP, CARP #### [address] [address] CMPon 10-11-2021 Albumin Level 3.6 G/dL Normal 3.2-4.8 [facility] ([place]) Comment on above: Performed By: #### H CTRP, HGBRP, GLURP, CLRP, NARP, BGRP, KRP, CARP #### [address] [address] Albumin/Globulin [Mass ratio] 1.0 {ratio} Normal 0.9-1.6 [facility] ([place]) Comment on above: Performed By: #### H CTRP, HGBRP, GLURP, CLRP, NARP, BGRP, KRP, CARP #### [address] [address] ALP [Catalytic activity/Vol] 111 U/L Normal 38-126 [facility] ([place]) Comment on above: Performed By: #### H CTRP, HGBRP, GLURP, CLRP, NARP, BGRP, KRP, CARP #### [address] [address] ALT [Catalytic activity/Vol] 22 U/L Normal 10-49 [facility] ([place]) Comment on above: Performed By: #### H CTRP, HGBRP, GLURP, CLRP, NARP, BGRP, KRP, CARP #### [address] [address] AST [Catalytic activity/Vol] 28 U/L Normal 8-34 [facility] ([place]) Comment on above: Performed By: #### H CTRP, HGBRP, GLURP, CLRP, NARP, BGRP, KRP, CARP #### [address] [address] Bili Total 0.40 mg/dL Normal 0.20-1.20 [facility] ([place]) Comment on above: Result Comment: Use of this assay is not recommended for patients undergoing treatment with eltrombopag due to the potential for falsely elevated results. Performed By: #### H CTRP, HGBRP, GLURP, CLRP, NARP, BGRP, KRP, CARP #### [place] [id number] BUN/Creatinine Ratio 22.1 ratio High 10.0-22.0 [facility] ([place]) Comment on above: Performed By: #### H CTRP, HGBRP, GLURP, CLRP, NARP, BGRP, KRP, CARP #### [place] [id number] Calcium [Mass/Vol] 9.5 mg/dL Normal 8.7-10.4 [facility] ([place]) Comment on above: Performed By: #### H CTRP, HGBRP, GLURP, CLRP, NARP, BGRP, KRP, CARP #### [address] [address] Chloride [Moles/Vol] 104 mmol/L Normal 98-110 [facility] ([place]) Comment on above: Performed By: #### H CTRP, HGBRP, GLURP, CLRP, NARP, BGRP, KRP, CARP #### [address] [address] CO2 [Moles/Vol] 28 mmol/L Normal 22-32 [facility] ([place]) Comment on above: Performed By: #### H CTRP, HGBRP, GLURP, CLRP, NARP, BGRP, KRP, CARP #### [place] [address] Creatinine [Mass/Vol] 0.68 mg/dL Normal 0.50-1.20 [facility] ([place]) Comment on above: Performed By: #### H CTRP, HGBRP, GLURP, CLRP, NARP, BGRP, KRP, CARP #### [address] [address] Electrolyte Balance 4.0 mEq/L Normal 4.0-15.0 [facility] ([place]) Comment on above: Performed By: #### H CTRP, HGBRP, GLURP, CLRP, NARP, BGRP, KRP, CARP #### [place] [id number] Globulin 3.6 G/dL Normal 1.5-3.8 [facility] ([place]) Comment on above: Performed By: #### H CTRP, HGBRP, GLURP, CLRP, NARP, BGRP, KRP, CARP #### [place] [phone] Glucose [Mass/Vol] 178 mg/dL High 82-115 [facility] ([place]) Comment on above: Performed By: #### H CTRP, HGBRP, GLURP, CLRP, NARP, BGRP, KRP, CARP #### Luis Miguel[address] [address] Potassium [Moles/Vol] 4.0 mmol/L Normal 3.5-5.0 [facility] ([place]) Comment on above: Performed By: #### H CTRP, HGBRP, GLURP, CLRP, NARP, BGRP, KRP, CARP #### [address] [address] Sodium [Moles/Vol] 136 mmol/L Normal 136-145 [facility] ([place]) Comment on above: Performed By: #### H CTRP, HGBRP, GLURP, CLRP, NARP, BGRP, KRP, CARP #### [address] [address] Total Protein 7.2 G/dL Normal 5.7-8.2 [facility] ([place]) Comment on above: Result Comment: No te - New Reference Range in effect 19 Performed By: #### H CTRP, HGBRP, GLURP, CLRP, NARP, BGRP, KRP, CARP #### [address] [address] Urea nitrogen [Mass/Vol] 15.0 mg/dL Normal 8.0-22.0 [facility] ([place]) Comment on above: Performed By: #### H CTRP, HGBRP, GLURP, CLRP, NARP, BGRP, KRP, CARP #### [address] [address] PBNPon 10-11-2021 Natriuretic peptide B (Bld) [Mass/Vol] 123 pg/mL Normal 0-900 [facility] ([place]) Comment on above: Result Comment: NT-p roBNP results of less than 300 pg/mL effectively rules out acute congestive heart failure with 99% negative predictive value. Performed By: #### H CTRP, HGBRP, GLURP, CLRP, NARP, BGRP, KRP, CARP #### [address] [address] TROPHSon 10-11-2021 Troponin I High Sensitivity 7.31 ng/L Normal 0.00-34.00 [facility] ([place]) Comment on above: Result Comment: If t he High Sensitive Troponin result is below the 99th percentile value (<45 ng/L) at the first blood draw, at least two additional blood samples should be drawn before results are interpreted as negative for AMI. Performed By: #### H CTRP, HGBRP, GLURP, CLRP, NARP, BGRP, KRP, CARP #### [place] [address] XR CHEST 1 VIEWon 10-11-2021 XR CHEST [...] 10/11/2021 5:14:20 AM Ordering Provider: ANTWAN Mercado [facility] ([place]) Absolute lymphocyte counton 09-08-2021 Lymphocytes Auto (Unsp spec) [#/Vol] 2.25 10*3/uL 0.83-4.51 [facility] Work Phone: Basophil percentageon 2021 Basophils/100 WBC (Bld) 0.6 % 0-1 [facility] Work Phone: Bilirubin [Mass/Vol] 0.50 mg/dL 0.20-1.00 [facility] Work Phone: Comment on above: For patients on eltr ombopag therapy, use of Dim[place] TBIL is not recommended. Chloride [Moles/Vol] 102 mmol/L 98-107 [facility] Work Phone: Eosinophils/100 WBC (Bld) 2.6 % 0-5 [facility] Work Phone: Glucose [Mass/Vol] 287 mg/dL 74-106 [facility] Work Phone: Comment on above: Glucose result great er than or equal to 200 mg/dLsuggests DIABETES MELLITUS per A.D.A. criteria. Neutrophils (Bld) [#/Vol] 10.8 10*3/uL 2.0-7.7 [facility] Work Phone: Neutrophils/100 WBC (Bld) 74.7 % 47-70 [facility] Work Phone: Potassium [Moles/Vol] 4.2 mmol/L 3.5-5.1 [facility] Work Phone: Protein [Mass/Vol] 7.2 g/dL 6.4-8.2 [facility] Work Phone: Sodium [Moles/Vol] 137 mmol/L 136-145 [facility] Work Phone: WBC (Bld) [#/Vol] 14.4 10*3/uL 4.4-11.0 [facility] Work Phone: Blood erythrocytes count (nu mber/volume)on 09-08-2021 RBC (Bld) [#/Vol] 4.53 10*6/uL 4.2-5.4 [facility] Work Phone: Blood hemoglobin measurement (mass/volume)on 09-08-2021 Hemoglobin (Bld) [Mass/Vol] 13.5 g/dL 12.0-15.0 [facility] Work Phone: Blood lymphocytes/100 leukoc yteson 09-08-2021 Lymphocytes/100 WBC (Bld) 15.6 % 19-41 [facility] Work Phone: Blood monocytes/100 leukocyt eson 09-08-2021 Monocytes/100 WBC (Bld) 5.8 % 0-10 [facility] Work Phone: [phone] Blood platelet mean volumeon 09-08-2021 Platelet mean volume (Bld) [Entitic vol] 10.7 fL 6.2-12.0 [facility] Work Phone: [phone] Determination of erythrocyte mean corpuscular volume (MCV)on 09-08-2021 MCV (RBC) [Entitic vol] 92.5 fL 81-99 [facility] Work Phone: [phone] Hematocrit Auto (Bld) [Volum e fraction]on 09-08-2021 Hematocrit (Bld) [Volume fraction] 41.9 % 37-47 [facility] Work Phone: [phone] Laboratory - Chemistry and C hemistry - challengeon 09-08-2021 ALP [Catalytic activity/Vol] 96 U/L 45-117 [facility] Work Phone: [phone] ALT [Catalytic activity/Vol] 28 U/L 13-56 [facility] Work Phone: [phone] CO2 [Moles/Vol] 28.0 mmol/L 21.0-32.0 [facility] Work Phone: [phone] Globulin (S) [Mass/Vol] 3.9 g/dL 2.2-4.2 [facility] Work Phone: [phone] Urea nitrogen/Creatinine [Mass ratio] 18.7 mg/mg 10-20 [facility] Work Phone: [phone] Laboratory - Hematology and Cell countson 09-08-2021 Erythrocyte distribution width (RBC) [Entitic vol] 43.7 fL 35.1-43.9 [facility] Work Phone: [phone] Erythrocyte distribution width (RBC) [Ratio] 12.9 % 11.6-14.6 [facility] Work Phone: [phone] Immature granulocytes/100 WBC (Bld) 0.700 % 0.0-0.9 [facility] Work Phone: [phone] Comment on above: IG% - Immature Granu locytes (promyelocytes, myelocytes and metamyelocytes) > 1% indicates that a LEFT SHIFT is Present. MCH (RBC) [Entitic mass] 29.8 pg 27.0-32.0 [facility] Work Phone: [phone] Nucleated RBC/100 WBC (Bld) [Ratio] 0 % 0-5 [facility] Work Phone: [phone] MCHC Auto (RBC) [Mass/Vol]on 09-08-2021 MCHC (RBC) [Mass/Vol] 32.2 g/dL 32-36 [facility] Work Phone: [phone] Panel Informationon 09-08 Estimated Creatinine Clearance Calc 43.74 ml/min [facility] Work Phone: [phone] Estimated GFR (MDRD) Amer 74 mL/min >60 [facility] Work Phone: [phone] Comment on above: GFR Calc Estimated GFR (MDRD) Non-Af Amer 61 mL/min >60 [facility] Work Phone: [phone] Comment on above: Non- GFR Calc Platelets bldon 09-08-2021 Platelets (Bld) [#/Vol] 267 10*3/uL 150-450 [facility] Work Phone: [phone] Serum or plasma albumin betsy urement (mass/volume)on 09-08-2021 Albumin [Mass/Vol] 3.3 g/dL 3.2-5.0 [facility] Work Phone: [phone] Serum or plasma albumin/glob ulin mass ratioon 09-08-2021 Albumin/Globulin [Mass ratio] 0.8 {ratio} 0.9-2.4 [facility] Work Phone: [phone] Serum or plasma calcium betsy urement (mass/volume)on 09-08-2021 Calcium [Mass/Vol] 9.1 mg/dL 8.5-10.1 [facility] Work Phone: [phone] Serum or plasma creatinine m easurement (mass/volume)on 09-08-2021 Creatinine [Mass/Vol] 0.96 mg/dL 0.55-1.02 [facility] Work Phone: Comment on above: The validity of the calculated GFR & GFRAA in patients over 70 years has not been determined. Clinical correlation is essential. Serum or plasma urea nitroge n measurement (mass/volume)on 09-08-2021 Urea nitrogen [Mass/Vol] 18 mg/dL 7-18 [facility] Work Phone: Thin prep Papanicolaou smear with manual screeningon 09-08-2021 Thin prep Papanicolaou smear with manual screening 20 U/L 15-37 [facility] Work Phone: [phone] Thin prep Papanicolaou smear with manual screening 7 5-15 [facility] Work Phone: [phone] Glucose Glucometer (BldC) [M ass/Vol]on 09-05-2021 Glucose [Mass/Vol] 201 mg/dL 74-106 [facility] Work Phone: Comment on above: MANAGEMENT OF PATIEN T CARE PER NURSING PROTOCOL Basophil percentageon 2021 Chloride [Moles/Vol] 103 mmol/L 98-107 [facility] Work Phone: [phone] Glucose [Mass/Vol] 160 mg/dL 74-106 [facility] Work Phone: Comment on above: Fasting Glucose resu lt greater than or equal to 126 mg/dL suggests DIABETES MELLITUS per A.D.A. criteria. Potassium [Moles/Vol] 4.0 mmol/L 3.5-5.1 [facility] Work Phone: [phone] Sodium [Moles/Vol] 136 mmol/L 136-145 [facility] Work Phone: [phone] WBC (Bld) [#/Vol] 12.7 10*3/uL 4.4-11.0 [facility] Work Phone: [phone] Blood erythrocytes count (nu mber/volume)on 08-28-2021 RBC (Bld) [#/Vol] 4.62 10*6/uL 4.2-5.4 [facility] Work Phone: [phone] Blood hemoglobin measurement (mass/volume)on 08-28-2021 Hemoglobin (Bld) [Mass/Vol] 13.7 g/dL 12.0-15.0 [facility] Work Phone: Blood platelet mean volumeon 08-28-2021 Platelet mean volume (Bld) [Entitic vol] 10.9 fL 6.2-12.0 [facility] Work Phone: Determination of erythrocyte mean corpuscular volume (MCV)on 08-28-2021 MCV (RBC) [Entitic vol] 92.0 fL 81-99 [facility] Work Phone: Hematocrit Auto (Bld) [Volum e fraction]on 08-28-2021 Hematocrit (Bld) [Volume fraction] 42.5 % 37-47 [facility] Work Phone: INR in Blood by Coagulation assayon 08-28-2021 INR Coag (Bld) [Relative time] 1.0 {INR} [facility] Work Phone: Laboratory - Chemistry and C hemistry - challengeon 08-28-2021 CO2 [Moles/Vol] 28.0 mmol/L 21.0-32.0 [facility] Work Phone: Urea nitrogen/Creatinine [Mass ratio] 23.6 mg/mg 10-20 [facility] Work Phone: Laboratory - Coagulationon 0 08-28-2021 aPTT Coag (Bld) [Time] 25.4 s 24.1-36.2 [facility] Work Phone: PT Coag (PPP) [Time] 13.0 s 11.7-14.9 [facility] Work Phone: Laboratory - Hematology and Cell countson 08-28-2021 Erythrocyte distribution width (RBC) [Entitic vol] 43.4 fL 35.1-43.9 [facility] Work Phone: Erythrocyte distribution width (RBC) [Ratio] 12.9 % 11.6-14.6 [facility] Work Phone: MCH (RBC) [Entitic mass] 29.7 pg 27.0-32.0 [facility] Work Phone: MCHC Auto (RBC) [Mass/Vol]on 08-28-2021 MCHC (RBC) [Mass/Vol] 32.2 g/dL 32-36 [facility] Work Phone: No Panel Informationon 08-28 Estimated GFR (MDRD) Amer 91 mL/min >60 [facility] Work Phone: Comment on above: GFR Calc Estimated GFR (MDRD) Non-Af Amer 75 mL/min >60 [facility] Work Phone: Comment on above: Non- GFR Calc Platelets bldon 08-28-2021 Platelets (Bld) [#/Vol] 299 10*3/uL 150-450 [facility] Work Phone: Serum or plasma calcium betsy urement (mass/volume)on 08-28-2021 Calcium [Mass/Vol] 9.1 mg/dL 8.5-10.1 [facility] Work Phone: Serum or plasma creatinine m easurement (mass/volume)on 08-28-2021 Creatinine [Mass/Vol] 0.80 mg/dL 0.55-1.02 [facility] Work Phone: Comment on above: The validity of the calculated GFR & GFRAA in patients over 70 years has not been determined. Clinical correlation is essential. Serum or plasma urea nitroge n measurement (mass/volume)on 08-28-2021 Urea nitrogen [Mass/Vol] 19 mg/dL 7-18 [facility] Work Phone: Thin prep Papanicolaou smear with manual screeningon 08-28-2021 Thin prep Papanicolaou smear with manual screening 5 5-15 [facility] Work Phone: Absolute lymphocyte counton 06-07-2021 Lymphocytes Auto (Unsp spec) [#/Vol] 2.40 10*3/uL 0.83-4.51 [facility] Work Phone: Basophil percentageon 03-23- 2022 Basophil percentage 0 SEEN /hpf 0-5 [facility] Work Phone: Basophils/100 WBC (Bld) 0.8 % 0-1 [facility] Work Phone: Bilirubin [Mass/Vol] 0.40 mg/dL 0.20-1.00 [facility] Work Phone: Comment on above: For patients on eltr ombopag therapy, use of [place] TBIL is not recommended. Chloride [Moles/Vol] 101 mmol/L 98-107 [facility] Work Phone: Cholesterol [Mass/Vol] 160 mg/dL <200 [facility] Work Phone: Comment on above: <200 mg/dL Desirable 200-240 mg/dL Borderline >240 mg/dL High Risk Eosinophils/100 WBC (Bld) 2.4 % 0-5 [facility] Work Phone: Glucose [Mass/Vol] 232 mg/dL 74-106 [facility] Work Phone: Comment on above: Glucose result great er than or equal to 200 mg/dLsuggests DIABETES MELLITUS per A.D.A. criteria. Neutrophils (Bld) [#/Vol] 8.1 10*3/uL 2.0-7.7 [facility] Work Phone: Neutrophils/100 WBC (Bld) 68.3 % 47-70 [facility] Work Phone: Potassium [Moles/Vol] 4.3 mmol/L 3.5-5.1 [facility] Work Phone: Protein [Mass/Vol] 7.8 g/dL 6.4-8.2 [facility] Work Phone: Sodium [Moles/Vol] 134 mmol/L 136-145 [facility] Work Phone: Triglyceride [Mass/Vol] 186 mg/dL <199 [facility] Work Phone: [phone] Comment on above: The drugs N-Acetylcy steine and Metamizole may falsely depress this assay.Serum Triglycerides Reference Interval Normal <150 mg/dL Borderline high 150 - 199 mg/dL High 200 - 499 mg/dL Very High > or = 500 mg/dL WBC (Bld) [#/Vol] 11.9 10*3/uL 4.4-11.0 [facility] Work Phone: Bilirubin Test strip Ql (U)o n 06-07-2021 Bilirubin Ql (U) Negative Negative [facility] Work Phone: Blood erythrocytes count (nu mber/volume)on 06-07-2021 RBC (Bld) [#/Vol] 4.69 10*6/uL 4.2-5.4 [facility] Work Phone: [phone] Blood hemoglobin measurement (mass/volume)on 06-07-2021 Hemoglobin (Bld) [Mass/Vol] 13.9 g/dL 12.0-15.0 [facility] Work Phone: [phone] Blood lymphocytes/100 leukoc yteson 06-07-2021 Lymphocytes/100 WBC (Bld) 20.2 % 19-41 [facility] Work Phone: [phone] Blood monocytes/100 leukocyt eson 06-07-2021 Monocytes/100 WBC (Bld) 7.0 % 0-10 [facility] Work Phone: [phone] Blood platelet mean volumeon 06-07-2021 Platelet mean volume (Bld) [Entitic vol] 11.0 fL 6.2-12.0 [facility] Work Phone: [phone] Determination of erythrocyte mean corpuscular volume (MCV)on 06-07-2021 MCV (RBC) [Entitic vol] 93.4 fL 81-99 [facility] Work Phone: [phone] Hematocrit Auto (Bld) [Volum e fraction]on 06-07-2021 Hematocrit (Bld) [Volume fraction] 43.8 % 37-47 [facility] Work Phone: [phone] Ketones Test strip Ql (U)on 06-07-2021 Ketones Ql (U) Negative Negative [facility] Work Phone: Laboratory - Chemistry and C hemistry - challengeon 06-07-2021 ALP [Catalytic activity/Vol] 122 U/L 45-117 [facility] Work Phone: [phone] ALT [Catalytic activity/Vol] 33 U/L 13-56 [facility] Work Phone: [phone] CO2 [Moles/Vol] 27.0 mmol/L 21.0-32.0 [facility] Work Phone: [phone] Free T4 [Mass/Vol] 0.79 ng/dL 0.76-1.46 [facility] Work Phone: [phone] Globulin (S) [Mass/Vol] 4.2 g/dL 2.2-4.2 [facility] Work Phone: [phone] Magnesium [Mass/Vol] 2.1 mg/dL 1.6-2.6 [facility] Work Phone: [phone] Urea nitrogen/Creatinine [Mass ratio] 21.3 mg/mg 10-20 [facility] Work Phone: [phone] Laboratory - Hematology and Cell countson 06-07-2021 Erythrocyte distribution width (RBC) [Entitic vol] 45.1 fL 35.1-43.9 [facility] Work Phone: [phone] Erythrocyte distribution width (RBC) [Ratio] 13.2 % 11.6-14.6 [facility] Work Phone: [phone] Immature granulocytes/100 WBC (Bld) 1.300 % 0.0-0.9 [facility] Work Phone: [phone] Comment on above: IG% - Immature Granu locytes (promyelocytes, myelocytes and metamyelocytes) > 1% indicates that a LEFT SHIFT is Present. MCH (RBC) [Entitic mass] 29.6 pg 27.0-32.0 [facility] Work Phone: [phone] Nucleated RBC/100 WBC (Bld) [Ratio] 0 % 0-5 [facility] Work Phone: [phone] HbA1c (Bld) [Mass fraction] 8.4 % 4.2-6.3 [facility] Work Phone: MCHC Auto (RBC) [Mass/Vol]on 06-07-2021 MCHC (RBC) [Mass/Vol] 31.7 g/dL 32-36 [facility] Work Phone: Mucus LM Ql (Urine sed)on Mucus Ql (Urine sed) 0 SEEN /hpf [facility] Work Phone: Nitrite Test strip Ql (U)on 06-07-2021 Nitrite Ql (U) Negative Negative [facility] Work Phone: No Panel Informationon 06-07 Estimated GFR (MDRD) Amer 76 mL/min >60 [facility] Work Phone: Comment on above: GFR Calc Estimated GFR (MDRD) Non-Af Amer 63 mL/min >60 [facility] Work Phone: Comment on above: Non- GFR Calc Free Triiodothyronine (T3) pg/dL 2.8 pg/mL 2.18-3.98 [facility] Work Phone: Thyroid Stimulating Hormone (TSH) 10.30 uIU/mL 0.358-3.74 [facility] Work Phone: Vitamin D 25-Hydroxy 18.1 ng/mL [facility] Work Phone: Comment on above: Vitamin D 25(OH) Sta tus Range Deficiency <20 ng/mL (50nmol/L) Insufficiency 20 - 30 ng/mL (50 - 75 nmol/L) Sufficiency 30 - 100 ng/mL (75 - 250 nmol/L) Toxicity >100 ng/mL (>250 nmol/L) Platelets bldon 06-07-2021 Platelets (Bld) [#/Vol] 332 10*3/uL 150-450 [facility] Work Phone: Protein Test strip Ql (U)on 06-07-2021 Protein Ql (U) Negative Negative [facility] Work Phone: [phone] Serum or plasma albumin betsy urement (mass/volume)on 06-07-2021 Albumin [Mass/Vol] 3.6 g/dL 3.2-5.0 [facility] Work Phone: Serum or plasma albumin/glob ulin mass ratioon 06-07-2021 Albumin/Globulin [Mass ratio] 0.9 {ratio} 0.9-2.4 [facility] Work Phone: Serum or plasma calcium betsy urement (mass/volume)on 06-07-2021 Calcium [Mass/Vol] 9.8 mg/dL 8.5-10.1 [facility] Work Phone: Serum or plasma cholesterol in HDL measurement (mass/volume)on 06-07-2021 Cholesterol in HDL [Mass/Vol] 51 mg/dL >40 [facility] Work Phone: Comment on above: The drugs N-Acetylcy steine and Metamizole may falsely depress this assay. Reference Range HDL <40 mg/dL Low HDL Cholesterol HDL >or= 60 mg/dL High HDL Cholesterol Serum or plasma cholesterol in VLDL measurement (mass/volume)on 06-07-2021 Cholesterol in VLDL [Mass/Vol] 37 mg/dL 5-40 [facility] Work Phone: [phone] Serum or plasma creatinine m easurement (mass/volume)on 06-07-2021 Creatinine [Mass/Vol] 0.94 mg/dL 0.55-1.02 [facility] Work Phone: Comment on above: The validity of the calculated GFR & GFRAA in patients over 70 years has not been determined. Clinical correlation is essential. Serum or plasma low density lipoprotein (LDL) cholesterol measurement (mass/volume)on 06-07-2021 Cholesterol in LDL [Mass/Vol] 72 mg/dL 0-130 [facility] Work Phone: [phone] Serum or plasma urea nitroge n measurement (mass/volume)on 06-07-2021 Urea nitrogen [Mass/Vol] 20 mg/dL 7-18 [facility] Work Phone: [phone] Squamous epithelial cells de tection in urine sediment by light microscopyon 06-07-2021 Epithelial cells.squamous LM Ql (Urine sed) 0 SEEN /hpf 5-10 [facility] Work Phone: Thin prep Papanicolaou smear with manual screeningon 06-07-2021 Thin prep Papanicolaou smear with manual screening 23 U/L 15-37 [facility] Work Phone: [phone] Thin prep Papanicolaou smear with manual screening 6 5-15 [facility] Work Phone: Urine blood detectionon - RBC Ql (U) Negative Negative [facility] Work Phone: [phone] RBC Ql (U) 0 SEEN /hpf 0-5 [facility] Work Phone: [phone] Urine clarityon 06-07-2021 Clarity (U) Sl. Cloudy Clear [facility] Work Phone: Urine color determinationon 06-07-2021 Color (U) Yellow Yellow [facility] Work Phone: Urine creatinine measurement (mass/volume)on 06-07-2021 Creatinine (U) [Mass/Vol] 23.70 mg/dL NO RANGE EST. [facility] Work Phone: Urine glucose detectionon Glucose Ql (U) 250 mg/dl Normal [facility] Work Phone: Urine leukocyte esterase det ection by dipstickon 06-07-2021 Leukocyte esterase Test strip Ql (U) Negative Negative [facility] Work Phone: Urine pHon 06-07-2021 pH (U) 6.5 [pH] 5.0 - 8.0 [facility] Work Phone: Urine protein measurement (m ass/volume)on 06-07-2021 Protein (U) [Mass/Vol] 6.9 mg/dL 0.0-11.8 [facility] Work Phone: Urine protein/creatinine mas s ratioon 06-07-2021 Protein/Creatinine (U) [Mass ratio] 291 mg/g CRE 0-200 [facility] Work Phone: Urine sediment bacteria coun t by microscopy (number/high power field)on 06-07-2021 Bacteria LM.HPF (Urine sed) [#/Area] 0 /[HPF] None Seen [facility] Work Phone: Urine specific gravity measu rementon 06-07-2021 Specific gravity (U) [Rel density] 1.010 1.002-1.030 [facility] Work Phone: Urobilinogen Auto test strip Ql (U)on 06-07-2021 Urobilinogen Ql (U) Normal mg/dl Normal [facility] Work Phone: Absolute lymphocyte counton 04-25-2021 Lymphocytes Auto (Unsp spec) [#/Vol] 2.40 10*3/uL 0.83-4.51 [facility] Work Phone: Basophil percentageon 2021 Basophils/100 WBC (Bld) 0.7 % 0-1 [facility] Work Phone: Chloride [Moles/Vol] 101 mmol/L 98-107 [facility] Work Phone: Eosinophils/100 WBC (Bld) 1.8 % 0-5 [facility] Work Phone: Glucose [Mass/Vol] 284 mg/dL 74-106 [facility] Work Phone: Comment on above: Glucose result great er than or equal to 200 mg/dLsuggests DIABETES MELLITUS per A.D.A. criteria. Neutrophils (Bld) [#/Vol] 9.9 10*3/uL 2.0-7.7 [facility] Work Phone: Neutrophils/100 WBC (Bld) 72.3 % 47-70 [facility] Work Phone: Potassium [Moles/Vol] 4.4 mmol/L 3.5-5.1 [facility] Work Phone: Sodium [Moles/Vol] 136 mmol/L 136-145 [facility] Work Phone: WBC (Bld) [#/Vol] 13.6 10*3/uL 4.4-11.0 [facility] Work Phone: Blood erythrocytes count (nu mber/volume)on 04-25-2021 RBC (Bld) [#/Vol] 4.88 10*6/uL 4.2-5.4 [facility] Work Phone: Blood hemoglobin measurement (mass/volume)on 04-25-2021 Hemoglobin (Bld) [Mass/Vol] 14.9 g/dL 12.0-15.0 [facility] Work Phone: Blood lymphocytes/100 leukoc yteson 04-25-2021 Lymphocytes/100 WBC (Bld) 17.6 % 19-41 [facility] Work Phone: Blood monocytes/100 leukocyt eson 04-25-2021 Monocytes/100 WBC (Bld) 6.2 % 0-10 [facility] Work Phone: Blood platelet mean volumeon 04-25-2021 Platelet mean volume (Bld) [Entitic vol] 10.8 fL 6.2-12.0 [facility] Work Phone: Determination of erythrocyte mean corpuscular volume (MCV)on 04-25-2021 MCV (RBC) [Entitic vol] 93.0 fL 81-99 [facility] Work Phone: [phone] Hematocrit Auto (Bld) [Volum e fraction]on 04-25-2021 Hematocrit (Bld) [Volume fraction] 45.4 % 37-47 [facility] Work Phone: Laboratory - Chemistry and C hemistry - challengeon 04-25-2021 CO2 [Moles/Vol] 29.0 mmol/L 21.0-32.0 [facility] Work Phone: [phone] Natriuretic peptide B (Bld) [Mass/Vol] 53.5 pg/mL 0-100 [facility] Work Phone: [phone] Urea nitrogen/Creatinine [Mass ratio] 18.0 mg/mg 10-20 [facility] Work Phone: Laboratory - Hematology and Cell countson 04-25-2021 Erythrocyte distribution width (RBC) [Entitic vol] 44.8 fL 35.1-43.9 [facility] Work Phone: [phone] Erythrocyte distribution width (RBC) [Ratio] 13.1 % 11.6-14.6 [facility] Work Phone: [phone] Immature granulocytes/100 WBC (Bld) 1.400 % 0.0-0.9 [facility] Work Phone: [phone] Comment on above: IG% - Immature Granu locytes (promyelocytes, myelocytes and metamyelocytes) > 1% indicates that a LEFT SHIFT is Present. MCH (RBC) [Entitic mass] 30.5 pg 27.0-32.0 [facility] Work Phone: [phone] Nucleated RBC/100 WBC (Bld) [Ratio] 0 % 0-5 [facility] Work Phone: [phone] MCHC Auto (RBC) [Mass/Vol]on 04-25-2021 MCHC (RBC) [Mass/Vol] 32.8 g/dL 32-36 [facility] Work Phone: [phone] No Panel Informationon 04-25 Estimated Creatinine Clearance Calc 44.67 ml/min [facility] Work Phone: [phone] Estimated GFR (MDRD) Amer 76 mL/min >60 [facility] Work Phone: [phone] Comment on above: GFR Calc Estimated GFR (MDRD) Non-Af Amer 63 mL/min >60 [facility] Work Phone: [phone] Comment on above: Non- GFR Calc Troponin I High Sensitivity 12 pg/mL 3.0-54.0 [facility] Work Phone: [phone] Comment on above: Please Note: New [place] t Units and Gender Specific Reference Ranges. For more information see Policy Stat Procedure [place] High Sensitivity Troponin (TNIH) and attachments. Platelets bldon 04-25-2021 Platelets (Bld) [#/Vol] 336 10*3/uL 150-450 [facility] Work Phone: Serum or plasma calcium betsy urement (mass/volume)on 04-25-2021 Calcium [Mass/Vol] 9.0 mg/dL 8.5-10.1 [facility] Work Phone: Serum or plasma creatinine m easurement (mass/volume)on 04-25-2021 Creatinine [Mass/Vol] 0.94 mg/dL 0.55-1.02 [facility] Work Phone: Comment on above: The validity of the calculated GFR & GFRAA in patients over 70 years has not been determined. Clinical correlation is essential. Serum or plasma urea nitroge n measurement (mass/volume)on 04-25-2021 Urea nitrogen [Mass/Vol] 17 mg/dL 7-18 [facility] Work Phone: Thin prep Papanicolaou smear with manual screeningon 04-25-2021 Thin prep Papanicolaou smear with manual screening 6 5-15 [facility] Work Phone: [facility] on 09-15-2016 [facility] Normal [facility] Patient Summary Documentson 09-15-2016 Patient Summary Documents Normal [facility] Vital Signs Date Time Vital Sign Value Performing Clinician Facility 07-02-2024 13:00-0400 Body height 157.[address] Harish Noel MD Work Phone: [facility] 07-02-2024 13:00-0400 Body mass index (BMI) [Ratio] 41.7 kg/m2 Dr. Harish Noel MD Work Phone: [facility] 07-02-2024 13:00-0400 Body temperature 98.9 [degF] Dr. Harish Noel MD Work Phone: [facility] 07-02-2024 13:00-0400 Body weight 103.[address] Harish Noel MD Work Phone: [facility] 07-02-2024 13:00-0400 Diastolic blood pressure 70 mm[Hg] Dr. Harish Noel MD Work Phone: [facility] 07-02-2024 13:00-0400 Heart rate 66 /min Dr. Harish Noel MD Work Phone: [facility] 07-02-2024 13:00-0400 Respiratory rate 16 /min Dr. Harish Noel MD Work Phone: [facility] 07-02-2024 13:00-0400 SaO2% (BldA) [Mass fraction] 90 % Dr. Harish Noel MD Work Phone: [facility] 07-02-2024 13:00-0400 Systolic blood pressure 150 mm[Hg] Dr. Harish Noel MD Work Phone: [facility] 04-30-2024 14:50-0500 Body temperature 97.8 [degF] Dr. Harish Noel MD Work Phone: [facility] 04-30-2024 14:50-0500 Diastolic blood pressure 72 mm[Hg] Dr. Harish Noel MD Work Phone: [facility] 04-30-2024 14:50-0500 Heart rate 83 /min Dr. Harish Noel MD Work Phone: [facility] 04-30-2024 14:50-0500 Respiratory rate 16 /min Dr. Harish Noel MD Work Phone: [facility] 04-30-2024 14:50-0500 SaO2% (BldA) [Mass fraction] 96 % Dr. Harish Noel MD Work Phone: [facility] 04-30-2024 14:50-0500 Systolic blood pressure 138 mm[Hg] Dr. Harish Noel MD Work Phone: [facility] 04-30-2024 13:49-0500 Body weight 100.[address] Harish Noel MD Work Phone: [facility] 04-30-2024 01:16-0500 Body mass index (BMI) [Ratio] 40.6 kg/m2 Dr. Harish Noel MD Work Phone: [facility] 07-28-2022 12:49-0400 Body height 157.[address] Harish Noel Work Phone: [facility] 07-28-2022 12:49-0400 Body mass index (BMI) [Ratio] 40.6 kg/m2 Dr. Harish Noel Work Phone: [facility] 07-28-2022 12:49-0400 Body temperature 97.2 [degF] Dr. Harish Noel Work Phone: [facility] 07-28-2022 12:49-0400 Body weight 100.[address] Harish Noel Work Phone: [facility] 07-28-2022 12:49-0400 Diastolic blood pressure 69 mm[Hg] Dr. Harish Noel Work Phone: [facility] 07-28-2022 12:49-0400 Heart rate 78 /min Dr. Harish Noel Work Phone: [facility] 07-28-2022 12:49-0400 Respiratory rate 22 /min Dr. Harish Noel Work Phone: [facility] 07-28-2022 12:49-0400 SaO2% (BldA) [Mass fraction] 97 % Dr. Harish Noel Work Phone: [facility] 07-28-2022 12:49-0400 Systolic blood pressure 148 mm[Hg] Dr. Harish Noel Work Phone: [facility] 05-16-2022 13:10-0500 Body temperature 97.3 [degF] Dr. Harish Noel Work Phone: [facility] 05-16-2022 13:10-0500 Body weight 101.[address] Harish Noel Work Phone: [facility] 05-16-2022 13:10-0500 Diastolic blood pressure 72 mm[Hg] Dr. Harish Noel Work Phone: [facility] 05-16-2022 13:10-0500 Heart rate 88 /min Dr. Harish Noel Work Phone: [facility] 05-16-2022 13:10-0500 Respiratory rate 16 /min Dr. Harish Noel Work Phone: [facility] 05-16-2022 13:10-0500 SaO2% (BldA) [Mass fraction] 92 % Dr. Harish Noel Work Phone: [facility] 05-16-2022 13:10-0500 Systolic blood pressure 115 mm[Hg] Dr. Harish Noel Work Phone: [facility] 04-11-2022 14:31-0500 Body height 157.[address] Harish Noel Work Phone: [facility] 04-11-2022 14:31-0500 Body mass index (BMI) [Ratio] 40.6 kg/m2 Dr. Harish Noel Work Phone: [facility] 04-11-2022 14:31-0500 Body weight 100.[address] Harish Noel Work Phone: [facility] 04-11-2022 14:31-0500 Diastolic blood pressure 93 mm[Hg] Dr. Harish Noel Work Phone: [facility] 04-11-2022 14:31-0500 Heart rate 80 /min Dr. Harish Noel Work Phone: [facility] 04-11-2022 14:31-0500 Respiratory rate 18 /min Dr. Harish Noel Work Phone: [facility] 04-11-2022 14:31-0500 SaO2% (BldA) [Mass fraction] 93 % Dr. Harish Noel Work Phone: [facility] 04-11-2022 14:31-0500 Systolic blood pressure 151 mm[Hg] Dr. Harish Noel Work Phone: [facility] 01-21-2022 19:56-0500 Diastolic blood pressure 60 mm[Hg] Dr. Harish Noel Work Phone: [facility] Work Phone: 01-21-2022 19:56-0500 Heart rate 74 /min Dr. Harish Noel Work Phone: [facility] Work Phone: 01-21-2022 19:56-0500 Respiratory rate 17 /min Dr. Harish Noel Work Phone: [facility] Work Phone: 01-21-2022 19:56-0500 SaO2% (BldA) [Mass fraction] 97 % Dr. Harish Noel Work Phone: [facility] Work Phone: 01-21-2022 19:56-0500 Systolic blood pressure 162 mm[Hg] Dr. Harish Noel Work Phone: [facility] Work Phone: 01-21-2022 15:54-0500 Body height 157.[address] Harish Noel Work Phone: [facility] Work Phone: 01-21-2022 15:54-0500 Body mass index (BMI) [Ratio] 42.4 kg/m2 Dr. Harish Noel Work Phone: [facility] Work Phone: 01-21-2022 15:54-0500 Body temperature 97.4 [degF] Dr. Harish Noel Work Phone: [facility] Work Phone: 01-21-2022 15:54-0500 Body weight 105.[address] Harish Noel Work Phone: [facility] Work Phone: 01-11-2022 15:21-0400 Body height 157.[address] Harish Noel Work Phone: [facility] Work Phone: 01-11-2022 15:21-0400 Body mass index (BMI) [Ratio] 40.9 kg/m2 Dr. Harish Noel Work Phone: [facility] Work Phone: 01-11-2022 15:21-0400 Body weight 101.[address] Harish Noel Work Phone: [facility] Work Phone: 01-11-2022 15:21-0400 Diastolic blood pressure 68 mm[Hg] Dr. Harish Noel Work Phone: [facility] Work Phone: 01-11-2022 15:21-0400 Heart rate 71 /min Dr. Harish Noel Work Phone: [facility] Work Phone: 01-11-2022 15:21-0400 Respiratory rate 18 /min Dr. Harish Noel Work Phone: [facility] Work Phone: 01-11-2022 15:21-0400 Systolic blood pressure 134 mm[Hg] Dr. Harish Noel Work Phone: [facility] Work Phone: 01-08-2022 14:16-0400 Body temperature 98.1 [degF] Dr. Harish Noel Work Phone: [facility] Work Phone: 01-08-2022 14:16-0400 Body weight 100.[address] Harish Noel Work Phone: [facility] Work Phone: 01-08-2022 14:16-0400 Diastolic blood pressure 84 mm[Hg] Dr. Harish Noel Work Phone: [facility] Work Phone: 01-08-2022 14:16-0400 Heart rate 84 /min Dr. Harish Noel Work Phone: [facility] Work Phone: 01-08-2022 14:16-0400 Respiratory rate 18 /min Dr. Harish Noel Work Phone: [facility] Work Phone: 01-08-2022 14:16-0400 SaO2% (BldA) [Mass fraction] 92 % Dr. Harish Noel Work Phone: [facility] Work Phone: 01-08-2022 14:16-0400 Systolic blood pressure 136 mm[Hg] Dr. Harish Noel Work Phone: [facility] Work Phone: 11-29-2021 11:55-0400 Body temperature 98.24 [degF] POLLY PHILIPPE MD [facility] 11-29-2021 11:55-0400 Diastolic Blood Pressure NBP 62 1 POLLY PHILIPPE MD [facility] 11-29-2021 11:55-0400 Heart rate 93 /min POLLY PHILIPPE MD [facility] 11-29-2021 11:55-0400 Mean blood pressure 77 mm[Hg] POLLY PHILIPPE MD [facility] 11-29-2021 11:55-0400 Reason For Taking VItal Signs POLLY PHILIPPE MD [facility] 11-29-2021 11:55-0400 Systolic Blood Pressure NBP 112 1 POLLY PHILIPPE MD [facility] 11-29-2021 10:33-0400 Heart rate 89 /min POLLY PHIILPPE MD [facility] 11-29-2021 09:05-0400 Heart rate 101 /min POLLY PHILIPPE MD [facility] 11-29-2021 07:28-0400 Body temperature 98.6 [degF] POLLY PHILIPPE MD [facility] 11-29-2021 07:28-0400 Diastolic Blood Pressure NBP 63 1 POLLY PHILIPPE MD [address] [place] [address] 11-29-2021 07:28-0400 Mean blood pressure 78 mm[Hg] POLLY PHILIPPE MD [address] [place] [address] 11-29-2021 07:28-0400 Reason For Taking VItal Signs POLLY PHILIPPE MD [address] [place] [address] 11-29-2021 07:28-0400 Respiratory rate 18 /min POLLY PHILIPPE MD [address] 11-29-2021 07:28-0400 Systolic Blood Pressure NBP 114 1 POLLY PHILIPPE MD [address] [place] [address] 11-29-2021 04:28-0400 Body temperature 98.6 [degF] POLLY PHILIPPE MD [address] 11-29-2021 04:28-0400 Diastolic Blood Pressure NBP 52 1 POLLY PHILIPPE MD [address] [place] [address] 11-29-2021 04:28-0400 Mean blood pressure 64 mm[Hg] POLLY PHILIPPE MD [address] [place] [address] 11-29-2021 04:28-0400 Reason For Taking VItal Signs POLLY PHILIPPE MD [address] [place] [address] 11-29-2021 04:28-0400 Respiratory rate 18 /min POLLY PHILIPPE MD [address] [place] [address] 11-29-2021 04:28-0400 Systolic Blood Pressure NBP 109 1 POLLY PHILIPPE MD [address] [place] [address] 11-29-2021 00:35-0400 Respiratory rate 18 /min POLLY PHILIPPE MD [facility] 11-28-2021 03:43-0400 SaO2% (BldA) [Mass fraction] 94.9 % POLLY PHILIPPE MD [facility] 11-27-2021 23:49-0400 Heart rate 98 /min POLLY PHILIPPE MD [facility] 11-26-2021 23:14-0400 Heart rate 84 /min POLLY PHILIPPE MD [facility] 11-26-2021 22:40-0400 SaO2% (BldA) [Mass fraction] 94.8 % POLLY PHILIPPE MD [facility] 11-26-2021 21:11-0400 SaO2% (BldA) [Mass fraction] 93.8 % POLLY PHILIPPE MD [facility] 11-26-2021 13:18-0400 Diastolic blood pressure 55 mm[Hg] POLLY PHILIPPE MD [facility] 11-26-2021 13:18-0400 Mean blood pressure 73 mm[Hg] POLLY PHILIPPE MD [facility] 11-26-2021 13:18-0400 Systolic blood pressure 113 mm[Hg] POLLY PHILIPPE MD [facility] 11-26-2021 11:24-0400 Diastolic blood pressure 58 mm[Hg] POLLY PHILIPPE MD [facility] 11-26-2021 11:24-0400 Mean blood pressure 86 mm[Hg] POLLY PHILIPPE MD [facility] 11-26-2021 11:24-0400 Systolic blood pressure 127 mm[Hg] POLLY PHILIPPE MD [facility] 11-26-2021 10:06-0400 Diastolic blood pressure 55 mm[Hg] POLLY PHILIPPE MD [facility] 11-26-2021 10:06-0400 Mean blood pressure 82 mm[Hg] POLLY PHILIPPE MD [facility] 11-26-2021 10:06-0400 Systolic blood pressure 123 mm[Hg] POLLY PHILIPPE MD [facility] 11-26-2021 09:30-0400 Diastolic blood pressure 52 mm[Hg] POLLY PHILIPPE MD [facility] 11-26-2021 09:30-0400 Heart rate 77 /min POLLY PHILIPPE MD [address] [place] [address] 11-26-2021 09:30-0400 Mean blood pressure 73 mm[Hg] POLLY PHILIPPE MD [address] [place] [address] 11-26-2021 09:30-0400 Systolic blood pressure 116 mm[Hg] POLLY PHILIPPE MD [address] [place] [address] 11-26-2021 06:29-0400 Heart rate 88 /min POLLY PHILIPPE MD [facility] 11-25-2021 00:10-0400 Body temperature 98.42 [degF] POLLY PHILIPPE MD [address] [place] [address] 11-24-2021 20:09-0400 Body temperature 98.06 [degF] POLLY PHILIPPE MD [address] 11-24-2021 15:35-0400 Body temperature 98.42 [degF] POLLY PHILIPPE MD [facility] 11-23-2021 12:45-0400 Body temperature 98.44 [degF] POLLY PHILIPPE MD [facility] 11-23-2021 12:45-0400 Body temperature 97.88 [degF] POLLY PHILIPPE MD [facility] 11-23-2021 12:40-0400 Body temperature 98.55 [degF] POLLY PHILIPPE MD [address] [place] [address] 11-23-2021 12:40-0400 Body temperature 97.93 [degF] POLLY PHILIPPE MD [facility] 11-23-2021 12:35-0400 Body temperature 98.56 [degF] POLLY PHILIPPE MD [facility] 11-23-2021 12:35-0400 Body temperature 98.01 [degF] POLLY PHILIPPE MD [facility] 11-23-2021 12:11-0400 SaO2% (BldA) [Mass fraction] 97.8 % POLLY PHILIPPE MD [facility] 11-23-2021 11:29-0400 SaO2% (BldA) [Mass fraction] 99.2 % POLLY PHILIPPE MD [facility] 11-23-2021 11:00-0400 SaO2% (BldA) [Mass fraction] 99.0 % POLLY PHILIPPE MD [facility] 11-23-2021 06:01-0400 Heart rate 76 /min POLLY PHILIPPE MD [facility] 11-23-2021 05:54-0400 Body height 157.5 cm POLLY PHILIPPE MD [facility] 11-23-2021 05:54-0400 Body weight 102.3 kg POLLY PHILIPPE MD [facility] 11-23-2021 05:54-0400 Body weight 41.24 kg/m2 POLLY PHILIPPE MD [facility] 11-23-2021 05:54-0400 diastolic 105 mm[Hg] POLLY PHILIPPE MD [facility] 11-23-2021 05:54-0400 systolic 131 mm[Hg] POLLY PHILIPPE MD [facility] 11-05-2021 04:06-0400 Diastolic blood pressure 77 mm[Hg] Dr. Harish Noel Work Phone: [facility] Work Phone: 11-05-2021 04:06-0400 Heart rate 79 /min Dr. Harish Noel Work Phone: [facility] Work Phone: 11-05-2021 04:06-0400 Respiratory rate 20 /min Dr. Harish Noel Work Phone: [facility] Work Phone: 11-05-2021 04:06-0400 SaO2% (BldA) [Mass fraction] 95 % Dr. Harish Noel Work Phone: [facility] Work Phone: 11-05-2021 04:06-0400 Systolic blood pressure 159 mm[Hg] Dr. Harish Noel Work Phone: [facility] Work Phone: 11-05-2021 02:14-0400 Body height 157.[address] Harish Noel Work Phone: [facility] Work Phone: 11-05-2021 02:14-0400 Body mass index (BMI) [Ratio] 41.8 kg/m2 Dr. Harish Noel Work Phone: [facility] Work Phone: 11-05-2021 02:14-0400 Body temperature 98.1 [degF] Dr. Harish Noel Work Phone: [facility] Work Phone: 11-05-2021 02:14-0400 Body weight 103.[address] Harish Noel Work Phone: [facility] Work Phone: 09-08-2021 14:58-0400 Diastolic blood pressure 81 mm[Hg] Dr. Harish Noel Work Phone: [facility] Work Phone: 09-08-2021 14:58-0400 SaO2% (BldA) [Mass fraction] 94 % Dr. Harish Noel Work Phone: [facility] Work Phone: 09-08-2021 14:58-0400 Systolic blood pressure 157 mm[Hg] Dr. Harish Noel Work Phone: [facility] Work Phone: 09-08-2021 11:55-0400 Body height 157.[address] Harish Noel Work Phone: [facility] Work Phone: 09-08-2021 11:55-0400 Body mass index (BMI) [Ratio] 40.7 kg/m2 Dr. Harish Noel Work Phone: [facility] Work Phone: 09-08-2021 11:55-0400 Body temperature 97.1 [degF] Dr. Harish Noel Work Phone: [facility] Work Phone: 09-08-2021 11:55-0400 Body weight 101.[address] Harish Noel Work Phone: [facility] Work Phone: 09-08-2021 11:55-0400 Heart rate 101 /min Dr. Harish Noel Work Phone: [facility] Work Phone: 09-08-2021 11:55-0400 Respiratory rate 22 /min Dr. Harish Noel Work Phone: [facility] Work Phone: 09-05-2021 07:52-0400 Body height 157.[address] Harish Noel Work Phone: [facility] Work Phone: 09-05-2021 07:52-0400 Body weight 100.[address] Harish Noel Work Phone: [facility] Work Phone: 09-01-2021 12:02-0400 Body mass index (BMI) [Ratio] 40.6 kg/m2 Dr. Harish Noel Work Phone: [facility] Work Phone: 08-28-2021 09:45-0400 Body mass index (BMI) [Ratio] 40.6 kg/m2 Dr. Harish Noel Work Phone: [facility] Work Phone: 08-28-2021 09:45-0400 Body weight 100.[address] Harish Noel Work Phone: [facility] Work Phone: 08-28-2021 09:45-0400 Diastolic blood pressure 71 mm[Hg] Dr. Harish Noel Work Phone: [facility] Work Phone: 08-28-2021 09:45-0400 Heart rate 87 /min Dr. Harish Noel Work Phone: [facility] Work Phone: 08-28-2021 09:45-0400 Respiratory rate 18 /min Dr. Harish Noel Work Phone: [facility] Work Phone: 08-28-2021 09:45-0400 Systolic blood pressure 134 mm[Hg] Dr. Harsih Noel Work Phone: [facility] Work Phone: 06-16-2021 15:17-0400 Body mass index (BMI) [Ratio] 41.1 kg/m2 Dr. Harish Noel Work Phone: [facility] Work Phone: 06-16-2021 15:17-0400 Body weight 102.[address] Harish Noel Work Phone: [facility] Work Phone: 06-16-2021 15:17-0400 Diastolic blood pressure 83 mm[Hg] Dr. Harish Noel Work Phone: [facility] Work Phone: 06-16-2021 15:17-0400 Heart rate 83 /min Dr. Harish Noel Work Phone: [facility] Work Phone: 06-16-2021 15:17-0400 Respiratory rate 18 /min Dr. Harish Noel Work Phone: [facility] Work Phone: 06-16-2021 15:17-0400 Systolic blood pressure 163 mm[Hg] Dr. Harish Noel Work Phone: [facility] Work Phone: 06-16-2021 15:17-0400 Body height 157.[address] Harish Noel Work Phone: [facility] Work Phone: 06-16-2021 15:17-0400 Body mass index (BMI) [Ratio] 41.1 kg/m2 Dr. Harish Noel Work Phone: [facility] Work Phone: 06-16-2021 15:17-0400 Body weight 102.[address] Harish Noel Work Phone: [facility] Work Phone: 06-16-2021 15:17-0400 Diastolic blood pressure 83 mm[Hg] Dr. Harish Noel Work Phone: [facility] Work Phone: 06-16-2021 15:17-0400 Heart rate 83 /min Dr. Harish Noel Work Phone: [facility] Work Phone: 06-16-2021 15:17-0400 Respiratory rate 18 /min Dr. Harish Noel Work Phone: [facility] Work Phone: 06-16-2021 15:17-0400 Systolic blood pressure 163 mm[Hg] Dr. Harish Noel Work Phone: [facility] Work Phone: 06-07-2021 08:26-0400 Body temperature 96.4 [degF] Dr. Harish Noel Work Phone: [facility] Work Phone: 06-07-2021 08:26-0400 Body weight 104.[address] Harish Noel Work Phone: [facility] Work Phone: 06-07-2021 08:26-0400 Diastolic blood pressure 90 mm[Hg] Dr. Harish Noel Work Phone: [facility] Work Phone: 06-07-2021 08:26-0400 Heart rate 90 /min Dr. Harish Noel Work Phone: [facility] Work Phone: 06-07-2021 08:26-0400 Respiratory rate 16 /min Dr. Harish Noel Work Phone: [facility] Work Phone: 06-07-2021 08:26-0400 Systolic blood pressure 160 mm[Hg] Dr. Harish Noel Work Phone: [facility] Work Phone: 06-07-2021 08:26-0400 Body temperature 96.4 [degF] Dr. Harish Noel Work Phone: [facility] Work Phone: 06-07-2021 08:26-0400 Body weight 104.[address] Harish Noel Work Phone: [facility] Work Phone: 06-07-2021 08:26-0400 Diastolic blood pressure 90 mm[Hg] Dr. Harish Noel Work Phone: [facility] Work Phone: 06-07-2021 08:26-0400 Heart rate 90 /min Dr. Harish Noel Work Phone: [facility] Work Phone: 06-07-2021 08:26-0400 Respiratory rate 16 /min Dr. Harish Noel Work Phone: [facility] Work Phone: 06-07-2021 08:26-0400 Systolic blood pressure 160 mm[Hg] Dr. Harish Noel Work Phone: [facility] Work Phone: 04-25-2021 14:02-0500 Diastolic blood pressure 82 mm[Hg] Dr. Harish Noel Work Phone: [facility] Work Phone: 04-25-2021 14:02-0500 Heart rate 80 /min Dr. Harish Noel Work Phone: [facility] Work Phone: 04-25-2021 14:02-0500 Respiratory rate 13 /min Dr. Harish Noel Work Phone: [facility] Work Phone: 04-25-2021 14:02-0500 SaO2% (BldA) [Mass fraction] 98 % Dr. Harish Noel Work Phone: [facility] Work Phone: 04-25-2021 14:02-0500 Systolic blood pressure 156 mm[Hg] Dr. Harish Noel Work Phone: [facility] Work Phone: 04-25-2021 10:28-0500 Body mass index (BMI) [Ratio] 41.1 kg/m2 Dr. Harish Noel Work Phone: [facility] Work Phone: 04-25-2021 10:28-0500 Body temperature 96.1 [degF] Dr. Harish Noel Work Phone: [facility] Work Phone: 04-25-2021 10:28-0500 Body weight 102.[address] Harish Noel Work Phone: [facility] Work Phone: Encounters Encounter Date Encounter Type Care Provider Facility Start: 07-16-2024 End: 07-16-[address] Harish Noel MD Work Phone: [facility] Work Phone: Start: 07-16-2024 End: 07-16-[address] Harish Noel MD -Laboratory Work Phone: Start: 07-16-2024 End: 07-16-2024 ambulatory [facility] Start: 07-02-2024 End: 07-02-[address] Harish Noel MD -[facility] Work Phone: Start: 07-02-2024 End: 07-02-2024 ambulatory [facility] [facility] Start: 04-30-2024 Non-patient / Non-visit Dr. Nathan smith -[facility] Work Phone: Start: 04-30-2024 Non-patient / Non-visit Dr. Lianne Cruz MD -[facility] Start: 04-29-2024 End: 04-29-2024 ambulatory [facility] Start: 04-29-2024 End: 04-29-2024 Non-patient / Non-visit Dr. Delgado Cruz MD -[facility] Work Phone: Start: 04-29-2024 End: 04-30-2024 ambulatory [facility] Start: 04-29-2024 End: 04-30-2024 Evaluation and management of inpatient Dr. Nathan Torres DO -[facility] Work Phone: Start: 01-16-2024 End: 01-17-2024 ambulatory Harish Noel Facility:[facility] Start: 01-15-2024 End: 01-15-2024 Emergency department patient visit Harish Noel Facility:[facility] Start: 09-03-2023 End: 09-03-2023 Emergency department patient visit Harish Noel Facility:[facility] Start: 09-02-2023 End: 09-02-2023 Emergency department patient visit Harish Noel Facility:[facility] Start: 08-05-2023 End: 08-05-2023 ambulatory Harish Noel Facility:[facility] Start: 07-28-2022 End: 07-28-2022 Emergency department patient visit Dr. Harish Noel Work Phone: [facility]-Emergency Department Start: 06-11-2022 End: 06-11-[address] Harish Noel Work Phone: [facility] Work Phone: Start: 06-11-2022 End: 06-11-[address] Harish Noel Work Phone: [facility]-Laboratory Start: 05-16-2022 End: 05-16-[address] Harish Noel Work Phone: [facility] Start: 04-11-2022 End: 04-11-[address] Harish Noel Work Phone: [facility] Start: 01-21-2022 End: 01-21-2022 Emergency department patient visit Dr. Harish Noel Work Phone: [facility]-Emergency Department Start: 01-15-2022 Non-patient / Non-visit Dr. Madison Noel Work Phone: [facility] Start: 01-11-2022 End: 01-11-[address] Harish Noel Work Phone: [facility] Work Phone: Start: 01-11-2022 End: 01-11-[address] Harish Noel Work Phone: [facility] Start: 01-11-2022 End: 01-11-[address] Harish Noel Work Phone: [facility] Start: 01-08-2022 End: 01-08-[address] Harish Noel Work Phone: [facility] Start: 12-27-2021 End: 12-28-2021 ambulatory MS. JUAN JUAREZ CAN SEALER Facility:A Start: 12-27-2021 End: 12-27-2021 Patient encounter procedure JUAN JUAREZ DISTRICT CLAIMS MANAGER-CAN SEALER [facility] Start: 12-13-2021 End: 12-14-2021 ambulatory MS. JUAN JUAREZ CAN SEALER Facility:A Start: 12-13-2021 End: 12-13-2021 Patient encounter procedure JUAN JUAREZ DISTRICT CLAIMS MANAGER-[facility] Start: 12-05-2021 Non-patient / Non-visit Dr. Madison Noel Work Phone: [facility] Start: 11-23-2021 End: 11-29-2021 Evaluation and management of inpatient POLLY PHILIPPE MD Facility:A Start: 11-23-2021 End: 11-29-2021 Evaluation and management of inpatient POLLY PHILIPPE MD [facility] Start: 11-17-2021 End: 11-18-2021 ambulatory POLLY PHILIPPE MD Facility:B Start: 11-17-2021 End: 11-17-2021 Patient encounter procedure POLLY PHILIPPE MD [facility] Start: 11-05-2021 End: 11-05-2021 Emergency department patient visit Dr. Harish Noel Work Phone: [facility]Emergency Department Start: 10-31-2021 End: 11-01-2021 ambulatory POLLY PHILIPPE MD Facility:A Start: 10-31-2021 End: 11-01-2021 ambulatory POLLY PHILIPPE MD Facility:A Start: 10-11-2021 End: 10-11-2021 Emergency department patient visit HARISH NOEL MD. Facility:A Start: 09-08-2021 End: 09-08-2021 Emergency department patient visit Dr. Harish Noel Work Phone: [facility]-Emergency Department Start: 09-05-2021 Non-patient / Non-visit Dr. Madison Noel Work Phone: [facility] Start: 09-05-2021 End: 09-05-2021 Admission to same day surgery center Dr. Harish Noel Work Phone: [facility]-Machine Steak Tenderizer/Special Procedures Start: 09-04-2021 Non-patient / Non-visit Dr. Madison Noel Work Phone: [facility] Start: 08-28-2021 End: 08-28-[address] Harish Noel Work Phone: [facility] Start: 07-25-2021 Non-patient / Non-visit Dr. Madison Noel Work Phone: [facility] Start: 07-24-2021 End: 07-24-[address] Harish Noel Work Phone: [facility]-Pulmonary Services/Neurology Start: 07-21-2021 Non-patient / Non-visit Dr. Madison Noel Work Phone: [facility] Start: 07-21-2021 End: 07-21-[address] Harish Noel Work Phone: [facility]-Cardiovascula r Services Start: 06-16-2021 End: 06-16-[address] Harish Noel Work Phone: [facility] Start: 06-07-2021 End: 06-07-[address] Harish Noel Work Phone: [facility]-Laboratory, [facility] Start: 06-07-2021 End: 06-07-[address] Harish Noel Work Phone: [facility] Internal Medicine Start: 04-25-2021 End: 04-25-2021 Emergency department patient visit Dr. Harish Noel Work Phone: [facility]-Emergency Department Start: 09-15-2016 End: 09-15-2016 Emergency department patient [facility] Facility:[facility] Procedures Date Procedure Procedure Detail Performing [...] above: CABG x[facility]- AD[facility]LAD[facility] [address] [facility] Start: 11-05-2021 Plain [...] POLLY Ferrer MD H/O: tubal ligation POLLY JOHNOSN MD Histology tonsillectomy NETO PHILIPPE MD History of coronary artery bypass grafting S/P CABG x 2( Confirmed ) JUAN JUAREZ DISTRICT CLAIMS MANAGER-CAN SEALER History of coronary artery bypass grafting Hx of CABG Dr. Harish Noel MD Work Phone: Hysterectomy POLLY PHILIPPE MD Viral antigen assay Dr. Ida Noel Work Phone: Plan of Treatment Date Care Activity Detail Author Start: 07-02-2024 Patient referral [facility] Work Phone: Start: 04-30-2024 Patient discharge [facility] Start: 04-30-2024 Inhalation therapy procedure [facility] Start: 04-29-2024 Following clinical p athway protocol [facility] Start: 04-29-2024 Assessment of risk o f venous thromboembolism [facility] Start: 04-29-2024 Care regimes management [facility] Start: 04-29-2024 Catheterization of vein [facility] Start: 04-29-2024 Incentive spirometry [facility] Start: 04-29-2024 Insertion of cathete r into peripheral vein [facility] Start: 04-29-2024 Measuring intake and output [facility] Start: 04-29-2024 Notification of physician [facility] Start: 04-29-2024 Oxygen therapy [facility] Start: 04-29-2024 Providing care accor ding to standard [facility] Start: 04-29-2024 Provision of activity privileges [facility] Start: 04-29-2024 Referral to service [facility] Start: 04-29-2024 End: 04-29-2024 [facility] Start: 04-29-2024 Admission procedure [facility] Start: 04-29-2024 Patient referral to dietitian [facility] Start: 05-16-2022 Patient referral [facility] Work Phone: Start: 04-11-2022 Patient referral [facility] Work Phone: Start: 11-05-2021 [facility] Work Phone: Start: 09-08-2021 [facility] Work Phone: Patient Education [facility] Work Phone: Patient referral [facility] Work Phone: Payers Date Payer Category Payer Unknown [id number] 2023 Self-pay [id number] 2021 Medicare [id number] [id number] 2016 Medicaid [id number] 1950 Unknown [id number] 2.16.8 [id number] 1950 Unknown [id number] 2.16.8 [id number] 1950 Unknown [id number] 2.16.8 40.1.779438.3.579.2.627 1950 Unknown [id number] 2.16.8 40.1.837629.3.579.2.627 1950 Unknown [id number] 2.16.8 40.1.919132.3.579.2.627 1950 Unknown [id number] 2.16.8 40.1.183276.3.579.2.627 1950 Unknown [id number] 2.16.8 40.1.619030.3.579.2.627 Unknown [id number] 2.16.8 40.1.936529.3.579.2.462 Unknown [id number] 2.16.8 40.1.059908.3.579.2.462 Unknown [id number] 2.16.8 40.1.396434.3.579.2.462 Unknown [id number] 2.16.8 40.1.277549.3.579.2.462 Unknown [id number] 2.16.8 40.1.100647.3.579.2.462 Unknown [id number] 2.16.8 40.1.089237.3.579.2.462 Unknown [id number] 2.16.8 40.1.458384.3.579.2.462 Unknown [id number] 2.16.8 40.1.814092.3.579.2.462 Unknown [id number] 2.16.8 40.1.067204.3.579.2.462 Unknown [id number] 2.16.8 40.1.450593.3.579.2.462 Unknown [id number] 2.16.8 40.1.336232.3.579.2.462 Unknown [id number] 2.16.8 40.1.461523.3.579.2.462 Unknown [id number] 2.16.8 40.1.658315.3.579.2.462 Social History Date Type Detail Facility Start: 06-16-2021 End: 07-28-2022 Tobacco smoking status NHIS Unknown if ever smoked [facility] Start: 07-05-2020 Non-smoker [facility] Start: 1950 Sex Assigned At Female A [facility] Start: 10-31-2021 End: 04-29-2024 Tobacco smoking status Ex-smoker (finding) [facility] Comment on above: Quit in 2015 Start: 07-22-2024 Sex Female (finding) [facility] Goals Date Patient Goal Desired Activity /State Functional Status Date Assessment Result Facility 04-30-2024 Functional status Ambulates;Bathroom Priv ilege [facility] Work Phone: 11-29-2021 Functional Status Supervised 1 [facility] 11-29-2021 Functional Status COVID 19 Surge in Effec t Yes [facility] 11-28-2021 Functional Status Ambulation in [facility] 11-28-2021 Functional Status [facility] 11-28-2021 Functional Status Mod I [facility] 11-28-2021 Functional Status Supervised 12 [facility] 11-28-2021 Functional Status Bath cloths, Shampoo/Body wash (no rinse) [facility] 11-27-2021 Functional Status [facility] 11-27-2021 Functional Status [facility] 11-27-2021 Functional Status Done [facility] 11-27-2021 Functional Status bilateral knee high [facility] 11-27-2021 Functional Status [facility] 11-26-2021 Functional Status [facility] 11-25-2021 Functional Status No falls in th e last 6 months, per pt. [facility] 11-25-2021 Functional Status [facility] 11-25-2021 Functional Status [facility] 11-25-2021 Functional Status SCD On/Re-appl ied bilateral knee high [facility] 11-25-2021 Functional Status [facility] 11-25-2021 Functional Status [facility] 11-24-2021 Functional Status preventative foam dress ing [facility] 11-24-2021 Functional Status 100 [facility] 11-24-2021 Functional Status Apartment, Single level home [facility] 11-23-2021 Functional Status [facility] 11-23-2021 Functional Status Special Call D evice Unable to use call device [facility] 11-23-2021 Functional Status [facility] 11-23-2021 Functional Status [facility] 11-23-2021 Functional Status Sensory Deficits None A [facility] Mental Status Date Assessment Result Facility 04-30-2024 Cognitive function Voice/Name [facility] Work Phone: 11-29-2021 Mental Status Oriented x 4 [facility] 11-29-2021 Mental Status [facility] 11-28-2021 Mental Status [facility] 11-05-2021 Cognitive function Voice/Name [facility] Work Phone: 09-08-2021 Cognitive function Level Of Cons ciousness Awake;Alert;Appropriate;Follow s Commands [facility] Work Phone: 04-25-2021 Cognitive function Voice/Name [facility] Work Phone: Clinical Notes 03-18-2016 to 04-30-2024 Note Date & Type Note Facility 04-30-2024 Note [facility] Medical Records Department [address] [place] [address] Discharge Summary 04/30/24 1446 MR#: [id number] Acct: [id number] Name: FELICITAS ALCANTARA Rep #: [id number] : 1950 73 From: Nathan Torres DO PCP: Dr. Harish Noel MD Status:ADM RUBINA Location: [place] [address] Providers Date of Admission: 04/29/24 Primary Care Physician: Dr. aHrish Noel MD Reason For Visit: HYPERTENSIVE URGENCY [...] 79.6 H, Lymph % (Auto) 12.1 L, [place] % (Auto) 4.9, Eos % (Auto) 2.3, [...] Clarity Clear, Urine pH 8.0, Ur Specific [place] 1.010, Urine Protein Negative, Urine Glucose (UA) [...] 90.6 H, Lymph % (Auto) 7.1 L, [place] % (Auto) 0.5, Eos % (Auto) 0.0, [...] cardiomegaly. Otherwise unremarkable chest radiograph. Reading Location: [id number] D/C Instructions Discharge Diet: 2000 Calorie Control [...] reason for non-treat (more content not included)... [facility] 04-29-2024 Evaluation note Diagnosis Onset Date Resolution [...] July 02 12:52pm Atherosclerotic heart disease of [place] coronary artery without angina pectoris chronic July 02, 2024 12:52pm Essential hypertension chronic July 02, 2024 12:52pm Hyperlipemia chronic July 02, 2024 12:52pm Hypothyroidism chronic June 12:52pm Type 2 diabetes mellitus chronic July 02, 2024 12:52pm Chest pain noneactive July 02 12:52pm [facility] Work Phone: 1(282) 162-646111-06-2022 Hospital Discharge instructions Additional Instructions 2 puffs of albuterol metered-dose inhaler every 4-6 hours for shortness of breath or wheezing.[facility] Work Phone: 1(313) 575-330810-13-2022 Note ORIGINAL EXAMINATION: TWO XRAY VIEWS OF [...] Sign Date: 12/28/2021 12:02:56 AM Ordering Provider: [facility]10-12-2022 Note ORIGINAL EXAMINATION: TWO XRAY VIEWS [...] Sign Date: 12/28/2021 12:02:56 AM Ordering Provider: [place]09-16-2022 Evaluation + Plan note Future Scheduled Tests Laboratory* Basic Metabolic Panel 12/01/21 Radiology* XR Chest 2 Views (PA & Lateral) 12/19/21 [facility] 09-15-2022 Note ORIGINAL EXAMINATION: TWO XRAY VIEWS [...] 11/30/2021 12:35:45 AM Ordering Provider: NAT DUNN [id number] Note Discharge Instructions Thank you for allowing [facility] to assist you with your healthcare needs. The following is importantdischarge information regarding your hospital visit. Your Care Team HARISH NOEL MD Your Diagnosis CAD IN [place] ARTERY s/p PCI 2015; s/p CABG x2 [...] Op 12/05/2021 10:00 AM EDT JUAN JUAREZ [facility] Cardiothoracic Surgery Follow Up Appointments Follow Up with JUAN JUAREZ When 12/05/2021 10:00 AM EDT Why: This will be with Dr. Philippe's nurse practitioner. Please present to [facility] department 1 hour prior to this visit for chest x-ray. Chest padmini will be removed at this visit. Where: [address] [facility] [place] [address]- Follow Up with Discharge to [facility] LOC [phone] When Within 1-2 days Follow Up with GAGE CHIRINOS MD, [facility] When Why: Please call rianna for follow-up appointment in 4-6 weeks (re: diabetes), can schedule at [place] office. Bring blood glucose meter with you to your appointment. Where: [address], [place] [address] [phone] Follow Up with SAQIB FRASER MD, [facility] When Within 1-2 days Why: Please call to arrange a hospital follow-up and possible trial void. Where: [address] [facility] [place] [address]- [phone] Follow Up with HARISH NOEL MD When Within 1-2 days Why: Please call to arrange a hospital follow-up. Where: [address] [place] [address]- [phone] Follow Up with free When Why: Follow up with primary care to have a Sleep Study ordered Where: Follow Up with Cardiac Rehab When Why: The Cardiac Rehab department will call you in 6 weeks to schedule you for phase 2. Informationgiven about cardiac rehab. If you have any questions please call [phone]. Where: [address] [facility] [place] [address]- The Following Activity and Diet Have Been [...] to: POLLY PHILIPPE MD, Please present to [facility] radiology department 1 hour prior to office [...] different for every person. A diet and pet nutrition specialist (registered dietitian) can help you make a [...] 15 g of carbohydrates: hamburger bun or Gibraltarian muffin. oz (15 mL) syrup. oz (14 [...] Identify the foods that contain carbohydrates: Rice. [place]. Milk. Strawberries. 2. Calculate how many servings [...] you manage your diabetes. A diet and pet nutrition specialist (registered dietitian) can help you make a meal plan and calculate how many carbohydrates you should have at each meal and snack. This information is not intended to replace advice given to you by your health care provider. Make sure you discuss any questions you have with your health care provider. Document Released: 03/04/2006 Document Revised: 09/26/2017 Document Reviewed: 08/15/2016 [employer] Patient Education 2020 [employer] OPEN HEART SURGERY (Bypass or Valve [...] diet and you may take a mild bybm-efb-crztaws laxative like Milk of Magnesia . CARDIAC [...] call your surgeon or your heart doctor. [facility] also has a free stop smoking program called Give it Up and if you want to attend, pleasecall [phone] ([phone]). Call the Surgeon If your incisions are [...] in your calf. Call the Heart Doctor (Practice Performance Manager) If your heart beats are irregular or [...] to receive it can visit one of [facility] vaccine clinics. There are many vaccine clinic locations within the [facility]. For locations and available times, please visit [email or web address] It is important to note that some COVID mobile vaccine clinics are held outdoors and may be canceled in rainy or stormy conditions. To learn more about pediatric vaccinations (ages 5-11), we invite you to visit the [facility] webpage. [email or web address] [email or web address].htmlTo learn more about the COVID-19 vaccine, we invite you to visit the [facility] website for a list of frequently asked questions. [email or web address] [facility] Patient Portal Access Instructions: Stay connected with your healthcare team and access your personal medical information anytime with the [facility] Patient Portal.If you would like a full copy of your medical records, please contact the [facility] Medical Records Department, Saturday through Saturday between 8a.m. and 4:30p.m. Please follow the directions below to access the portal: 1.Access the email account you provided upon registration to the [facility].2.Look for an invitation email from [facility].3.Open the email and access the invitation link: Accept Invitation to [facility]4.Fill in the required singer to create your account. Sign into [email or web address] with your username and password that you [...] you will allow to register on the [facility] Patient Portal for access to your information. You can also access the [facility] Patient Portal on the [employer] ina. Simply click on Health Records under Cardiosonic and then click on the [facility] [...] Call your local pharmacy or go to http://bit.ly/0B3Au6w to find one close to you.3.Make use of household items: Use cat litter or old coffee grounds to dispose medications if other options arenot available. Mix your drugs with these household products, seal them in an airtight container andthrow it into the garbage. Call [facility]: [phone] to be sure your drugs can be [...] am aware that I should contactmy doctor. Patient/Model Maker Signature: Date/Time: Relationship to Patient: Witness Name/Signature: Date/Time: [id number] End[facility]ology Progress note Date of Service 11/29/2021 [...] Glucose, Capillary 11/29/2021 07:28:00 EDT 174 mg/dL WA 82-115 Glucose Testing Glucose Level 11/29/2021 04:54:00 EDT 168 mg/dL WA 82-115 Glucose Testing Blood Glucose, Capillary 11/28/2021 20:21:00 EDT 159 mg/dL WA 82-115 Glucose Testing Blood Glucose, Capillary 11/28/2021 16:40:00 EDT 159 mg/dL HI 82-115 Y Glucose Testing Blood Glucose, Capillary 11/28/2021 11:53:00 EDT 202 mg/dL WA 82-115 Glucose Testing Blood Glucose, Capillary 11/28/2021 07:15:00 EDT 205 mg/dL WA 82-115 EKG No qualifying data available. Assessment/Plan 1. CAD IN [place] ARTERY s/p PCI 2015; s/p CABG x2 [...] had a cardiac catheterization completed with her floor plan adjuster, Dr. Jewell in [place] which revealed an EF of 55% with [...] by DIVINA DOSS on 11/29/2021 11:37 AM [id number] Discharge instructions Patient Education 11/29/2021 08:48:47 [...] 05/16/2007 Document Revised: 03/03/2018 Document Reviewed: 03/03/2018 [employer] Patient Education 2020 [employer]. 11/29/2021 08:48:46 Carbohydrate Counting for Diabetes Mellitus, [...] different for every person. A diet and pet nutrition specialist (registered dietitian) can help you make a [...] 15 g of carbohydrates: hamburger bun or [place]ralt[place] muffin. oz (15 mL) syrup. oz (14 [...] 1.Identify the foods that contain carbohydrates: Rice. [place]. Milk. Strawberries. 2.Calculate how many servings you [...] you manage your diabetes. A diet and pet nutrition specialist (registered dietitian) can help you make a meal plan and calculate how many carbohydrates you should have at each meal and snack. This information is not intended to replace advice given to you by your health care provider. Make sure you discuss any questions you have with your health care provider. Document Released: 03/04/2006 Document Revised: 09/26/2017 Document Reviewed: 08/15/2016 [employer] Patient Education 2020 [employer]. 11/29/2021 08:48:44 8- Open Heart Surgery (Bypass [...] diet and you may take a mild wqdg-cje-rldjyki laxative like Milk of Magnesia . CARDIAC [...] call your surgeon or your heart doctor. [facility] also has a free stop smoking program called Give it Up and if you want to attend, pleasecall [phone] ([phone]). Call the Surgeon If your incisions are [...] in your calf. Call the Heart Doctor (Practice Performance Manager) If your heart beats are irregular or [...] Follow Up Care 10/11/2021 14:55:42 With:Discharge to [facility] [phone] Address:Unknown When:1-2 days With:GAGE CHIRINOS MD, [facility] Address: [address] [place] [address] [phone] When: Unknown Comments:Please call rianna for follow-up appointment in 4-6 weeks (re: diabetes), can schedule at [facility]. Bring blood glucose meter with you to your appointment. With:SAQIB FRASER MD, [facility], Urology Service Address: [address] [place] [address]- [phone] When:1-2 days Comments:Please call to arrange a hospital follow-up and possible trial void. With:HARISH NOEL MD Address: [address] [place] [address] [phone] When:1-2 days Comments:Please call to arrange a hospital follow-up. With:JUAN JUAREZ APRN-CAN SEALER Address: [address] [place] [address] A-2 LOBO 800 [facility] [place] [address]- When:12/05/2021 10:00:00 Comments:This will be with Dr. Philippe's nurse practitioner. Please present to [facility] department 1 hour prior to this visit for chest x-ray. Chest padmini will be removed at this visit. With:free Address: When: Unknown Comments:Follow up with primary care to have a Sleep Study ordered With:Cardiac Rehab Address: [address] [place] [address] [place] [address]- When: Unknown Comments:The Cardiac Rehab department will call you in 6 weeks to schedule you for phase 2. Information given about cardiac rehab. If you have any questions please call [phone]. [facility] 09-14-2022 Discharge summary Date of Service 11/29/2021 Discharge Diagnosis 1. CAD IN [place] ARTERY s/p PCI 2016; s/p CABG x2 [...] (R32 - ICD-10-CM) Atherosclerotic heart disease of [place] coronary artery without angina pectoris (I25.10 - [...] (one day only), Blood, Once, Preferred Lab: [facility], Stop date 11/29/21 4:00:00 EDT(Complete) Other status: CBC,11/29/21 5:01:00 EDT, Next AM Draw (one day only), Blood, Once, Preferred Lab: [facility], Stop date 11/29/21 4:00:00 EDT(Complete) Ordered: Communication Order (scheduled),11/29/21 9:18:00 EDT, Once, 11/29/21 9:18:00 EDT, Temporary pacer wires removed at 8:30 AM. Patient may be discharged to [facility] after 12:30 PM. Discontinued: Coreg,Start: 11/28/21 8:00:00 [...] Refill(s) Ordered: Discharge,11/29/21 9:18:00 EDT, Discharged to[facility] Ordered: Discharge Blood Glucose Monitoring,When [...] to: POLLY PHILIPPE MD, Please present to [facility] department 1 hour prior to office [...] She hada cardiac catheterization completed with her floor plan adjuster, Dr. Jewell in [place] which revealed an EF of 55% with [...] nebs. nitroprusside drip has been weaned off. [facility] consulted for diabetic management. PT/OT consulted. [...] obtain urinalysis and urine culture, and consult [facility]. WBC 20.3 this morning. Discontinue A-line. [...] greater than 200 cc. Likely discharge to [facility] tomorrow. [1]POD #6: Patient feels much better today. Denies any nausea. She is anxious to leave today. SPO2 93 to 95% on 1.5 L nasal cannula (87% on room air). CBC and BMP reviewed with Dr. Philippe as well as chest x-ray. Patient is cleared to be discharged to [facility] per Dr. Philippe. We will increase [...] and will need to follow-up with the [facility] for possible trial void versus catheter [...] obtusemarginal coronary artery. [2] Consults Consult to [facility] - Ordered -- 11/24/21 6:54:00 [...] bra or breast support. Medications New Prescription [id number] Milligram by mouth every 4 hours as [...] pain. Refills: 3. I have reviewed the [place] Automated Rx Reporting System (OARRS) report for [...] Dr. Philippe's nurse practitioner. Please present to [facility] department 1 hour prior to this visit for chest x-ray. Chest padmini will be removed at this visit. Where: [address] [facility] A-2 LOBO 800 [facility] [place] [address]- Follow Up with Discharge to [facility] LOC [phone] When Within 1-2 days Follow Up with GAGE CHIRINOS MD, [facility] When Why: Please call rianna for follow-up appointment in 4-6 weeks (re: diabetes), can schedule at [facility]. Bring blood glucose meter with you to your appointment. Where: [address], [place] [address] [phone] Follow Up with SAQIB FRASER MD, [facility], Urology Service When Within 1-2 days Why: Please call to arrange a hospital follow-up and possible trial void. Where: [address] [facility] [address] [place] [phone] Follow Up with HARISH NOEL MD When Within 1-2 days Why: Please call to arrange a hospital follow-up. Where: [address] [place] [address]- [phone] Follow Up with free When Why: Follow up with primary care to have a Sleep Study ordered Where: Follow Up with Cardiac Rehab When Why: The Cardiac Rehab department will call you in 6 weeks to schedule you for phase 2. Informationgiven about cardiac rehab. If you have any questions please call [phone]. Where: [address] [facility] [place] [address]- Follow Up Appointments Transfer of Care OT [...] to: POLLY PHILIPPE MD, Please present to [facility] 1 hour prior to office [...] To Patient [1] Progress Note; NAT DUNN APRN-CAN SEALER 11/28/2021 10:10 EDT [2] OPERATIVE NOTE; POLLY PHILIPPE MD 11/23/2021 00:00 EDT Digitally Signed by NAT DUNN APRN-CAN SEALER on 11/29/2021 02:50 PM [facility]jax[facility]h35[facility]44-5979 Note Discharge Instructions Thank you for allowing [facility] to assist you with your healthcare needs. The following is importantdischarge information regarding your hospital visit. Your Care Team HARISH NOEL MD Your Diagnosis CAD IN [place] ARTERY s/p PCI 2015; s/p CABG x2 [...] Op 12/05/2021 10:00 AM EDT JUAN JUAREZ [facility] Cardioth[facility]acic Surgery Follow Up Appointments Follow Up with JUAN JUAREZ When 12/05/2021 10:00 AM EDT Why: This will be with Dr. Philippe's nurse practitioner. Please present to [facility] 1 hour prior to this visit for chest x-ray. Chest padmini will be removed at this visit. Where: [address] A-2 LOBO 800 [facility] [place] [address]- Follow Up with Discharge to [facility] LOC [phone] When Within 1-2 days Follow Up with GAGE CHIRINOS MD, [facility] When Why: Please call rianna for follow-up appointment in 4-6 weeks (re: diabetes), can schedule at [place] office. Bring blood glucose meter with you to your appointment. Where: [address], [place] [address] [phone] Follow Up with SA[facility]IB [facility]AS[facility] MD, [facility] When Within 1-2 days Why: Please call to arrange a hospital follow-up and possible trial void. Where: [address] [facility] [address] [place] [address]- [phone] Follow Up with HARISH NOEL MD When Within 1-2 days Why: Please call to arrange a hospital follow-up. Where: [address] [place] [address]- [phone] Follow Up with free When Why: Follow up with primary care to have a Sleep Study ordered Where: Follow Up with Cardiac Rehab When Why: The Cardiac Rehab department will call you in 6 weeks to schedule you for phase 2. Informationgiven about cardiac rehab. If you have any questions please call [phone]. Where: [address] [facility] [place] [address]- The Following Activity and Diet Have Been [...] to: POLLY PHILIPPE MD, Please present to [facility] 1 hour prior to office [...] different for every person. A diet and pet nutrition specialist (registered dietitian) can help you make a [...] 15 g of carbohydrates: hamburger bun or [place]ralt[place] muffin. oz (15 mL) syrup. oz (14 [...] Identify the foods that contain carbohydrates: Rice. [place]. Milk. Strawberries. 2. Calculate how many servings [...] you manage your diabetes. A diet and pet nutrition specialist (registered dietitian) can help you make a meal plan and calculate how many carbohydrates you should have at each meal and snack. This information is not intended to replace advice given to you by your health care provider. Make sure you discuss any questions you have with your health care provider. Document Released: 03/04/2006 Document Revised: 09/26/2017 Document Reviewed: 08/15/2016 [employer] Patient Education 2020 [employer] OPEN HEART SURGERY (Bypass or Valve [...] diet and you may take a mild vvyr-ezp-wpqnyus laxative like Milk of Magnesia . CARDIAC [...] call your surgeon or your heart doctor. [facility] also has a free stop smoking program called Give it Up and if you want to attend, pleasecall [phone]). Call the Surgeon If your incisions are [...] in your calf. Call the Heart Doctor (Practice Performance Manager) If your heart beats are irregular or [...] to receive it can visit one of [facility] vaccine clinics. There are many vaccine clinic locations within the [facility]. For locations and available times, please visit [email or web address]/. It is important to note that some COVID mobile vaccine clinics are held outdoors and may be canceled in rainy or stormy conditions. To learn more about pediatric vaccinations (ages 5-11), we invite you to visit the [facility] webpage. https://www.[email or web address]/pages/7213-Rjnuh-Bimyilbmzkq-Smppwajbml-Adogn-Uoj stions.htmlTo learn more about the COVID-19 vaccine, we invite you to visit the [facility] website for a list of frequently asked questions. [email or web address].Zillow/assets/Kfjudlfu-xjs-Nwrhvsci/sukiz-Icbwuhs-Ixbbxbnfws _Asked-Questions.pdf [facility] Patient Portal Access Instructions: Stay connected with your healthcare team and access your personal medical information anytime with the [facility] Patient Portal.If you would like a full copy of your medical records, please contact the [facility] Medical Records Department, Saturday through Saturday between 8a.m. and 4:30p.m. Please follow the directions below to access the portal: 1.Access the email account you provided upon registration to the hospital.2.Look for an invitation email from [facility].3.Open the email and access the invitation link: Accept Invitation to [facility]4.Fill in the required singer to create your account. Sign into [email or web address] with your username and password that you [...] will allow to register on the [facility] Patient Portal for access to your information. You can also access the [facility] Patient Portal on the [employer]. Simply click on Health Records under Cardiosonic and then click on the [facility] logo. HOW TO SAFELY DISPOSE OF PRESCRIPTION [...] Call your local pharmacy or go to http://bit.ly/3A9Xb6h to find one close to you.3.Make use of household items: Use cat litter or old coffee grounds to dispose medications if other options arenot available. Mix your drugs with these household products, seal them in an airtight container andthrow it into the garbage. Call [facility]: [phone] to be sure your drugs can be [...] am aware that I should contactmy doctor. Patient/Model Maker Signature: Date/Time: Relationship to Patient: Witness Name/Signature: Date/Time: [facility]cfxkvju29-57-1532 Note Date of Service 11/29/2021 Temporary A and V pacer wires discontinued at [place] 8:30 AM. Patient tolerated well. Patient instructed to remain bedrest for 1 hour. Digitally Signed by NAT DUNN APRN-CAN SEALER on 11/29/2021 08:44 AM [facility]Votzyxfw25-94-2278 Note ORIGINAL EXAMINATION: TWO XRAY VIEWS OF [...] Date: 11/30/2021 12:35:45 AM Ordering Provider: [facility] CenterZagtuqri34-43-4797 Nurse Progress note Student's documentation was reviewed and all medications were verified prior to administration. Digitally Signed by Windy Jaimes RN on 11/28/2021 06:34 PM [facility]Ojfqqxjx63-84-3699 Note Date of Service 11/28/2021 Chief Complaint POD #5 This is a 71-year-old female with past medical history of CAD status post PCI in 2016, hypothyroidism, hypertension, hyperlipidemia, irritable bowel syndrome, diabetes, history of DVT, history of tobacco use (quit 6 years ago), history of GI bleeds requiring blood transfusions, and obesity. She hada cardiac catheterization completed with her floor plan adjuster, Dr. Jewell in [place] which revealed an EF of 55% with [...] nebs. nitroprusside drip has been weaned off. [facility] consulted for diabetic management. PT/OT consulted. [...] obtain urinalysis and urine culture, and consult [facility]. WBC 20.3 this morning. Discontinue A-line. Keep in ICU. Postop day [facility] Aggressive pulmonary toilet. Wean O2. Voiding trial [...] greater than 200 cc. Likely discharge to [facility] tomorrow. Subjective Patient resting comfortably in bed. [...] access: Left subclavian triple-lumen Disposition: [place] Weight Current Weight Dosing Weight: 102.3 kg [...] 11/26/21 20:59:00 EDT Assessment/Plan 1. CAD IN [place] ARTERY s/p PCI 2016; s/p CABG x2 [...] Diabetes mellitus Hgb A1c 9.7% Followed by [facility]. Glucoses ranging 172-240. On Humalog sliding [...] negative. 15. Postoperative urinary retention Followed by [facility]. Urine culture negative. Plan to remove [...] many are missed. [1] Progress Note; KAELYN DREWSEASONAL TAX PREPARER 11/27/2021 08:52 EDT Digitally Signed by NAT DUNN on 11/28/2021 10:23 AM [id number] Endocrinology Progress note Date of Service 11/28/2021 [...] Glucose, Capillary 11/28/2021 11:53:00 EDT 202 mg/dL [place] 82-115 Glucose Testing Blood Glucose, Capillary 11/28/2021 07:15:00 EDT 205 mg/dL [place] 82-115 Glucose Testing Blood Glucose, Capillary 11/27/2021 21:05:00 EDT 172 mg/dL HI 82-115 Glucose Testing Blood Glucose, Capillary 11/27/2021 16:40:00 EDT 240 mg/dL HI 82-115 Y Glucose Testing Blood Glucose, Capillary 11/27/2021 11:19:00 EDT 168 mg/dL WA 82-115 Glucose Testing Blood Glucose, Capillary 11/27/2021 07:17:00 EDT 166 mg/dL [place] 82-115 EKG No qualifying data available. Assessment/Plan 1. CAD IN [place] ARTERY s/p PCI 2015; s/p CABG x2 [...] had a cardiac catheterization completed with her floor plan adjuster, Dr. Jewell in [place] which revealed an EF of 55% with [...] by DIVINA DOSS on 11/28/2021 01:30 PM [facility] HospitalMfhroczf70-41-1013 Nurse Progress note Patient refused morning potassium, education provided on why patient was prescribed this supplement, patient stated she couldn't take any more pills this morning. Patient stated she wanted to sign herself out, did not want to go to an extended care facility for therapy. More education provided. Digitally Signed by Ina Dukes RN on 11/28/2021 12:16 PM [facility] HospitalKignrurm28-64-9176 Note Date of Service 11/28/2021 Chief Complaint POD #5 This is a 71-year-old female with past medical history of CAD status post PCI in 2016, hypothyroidism, hypertension, hyperlipidemia, irritable bowel syndrome, diabetes, history of DVT, history of tobacco use (quit 6 years ago), history of GI bleeds requiring blood transfusions, and obesity. She hada cardiac catheterization completed with her floor plan adjuster, Dr. Jewell in [place] which revealed an EF of 55% with [...] nebs. nitroprusside drip has been weaned off. [facility] consulted for diabetic management. PT/OT consulted. [...] obtain urinalysis and urine culture, and consult [facility]. WBC 20.3 this morning. Discontinue A-line. Keep in ICU. Postop day [facility]. [facility] Aggressive pulmonary toilet. Wean O2. Voiding trial [...] greater than 200 cc. Likely discharge to [facility] tomorrow. Subjective Patient resting comfortably in bed. [...] access: Left subclavian triple-lumen Disposition: [place] Weight Current Weight Dosing Weight: 102.3 kg [...] 11/26/21 20:59:00 EDT Assessment/Plan 1. CAD IN [place] ARTERY s/p PCI 2016; s/p CABG x2 [...] are missed. [1] Progress Note; KAELYN DREW APRN-SEASONAL TAX PREPARER 11/27/2021 08:52 EDT Digitally Signed by NAT DUNN on 11/28/2021 10:23 AM [facility] HospitalGkeeojeq95-05-3222 Note. MICRO - Microbiology PROCEDURE: Urine Culture [...] Locations *1: This test was performed at: [address], [facility] , [facility], [facility])11-28-2021 Note ORIGINAL EXAMINATION: TWO XRAY VIEWS OF [...] Sign Date: 11/28/2021 8:13:29 AM Ordering Provider: [facility]09-13-2022 Note ORIGINAL EXAMINATION: TWO XRAY VIEWS OF [...] Date: 11/28/2021 8:13:29 AM Ordering Provider: [facility]09-12-2022 Endocrinology Progress note Date of Service 11/27/2021 [...] Glucose, Capillary 11/27/2021 16:40:00 EDT 240 mg/dL WA 82-115 Y Glucose Testing Blood Glucose, Capillary 11/27/2021 11:19:00 EDT 168 mg/dL [place] 82-115 Glucose Testing Blood Glucose, Capillary 11/27/2021 07:17:00 EDT 166 mg/dL HI 82-115 Glucose Testing Blood Glucose, Capillary 11/26/2021 23:04:00 EDT 137 mg/dL WA 82-115 Glucose Testing Blood Glucose, Capillary 11/26/2021 20:38:00 EDT 142 mg/dL WA 82-115 Glucose Testing Blood Glucose, Capillary 11/26/2021 16:40:00 EDT 161 mg/dL WA 82-115 Glucose Testing Blood Glucose, Capillary 11/26/2021 11:24:00 EDT 243 mg/dL WA 82-115 Glucose Testing Blood Glucose, Capillary 11/26/2021 07:35:00 EDT 165 mg/dL WA 82-115 EKG EKG - Completed -- 11/26/21 20:59:00 EDT Electrocardiogram - [facility]Process -- 11/27/21 6:00:00 EDT, On the 4th post op day Assessment/Plan 1. CAD IN [place] ARTERY s/p PCI 2015; s/p CABG x2 [...] had a cardiac catheterization completed with her floor plan adjuster, Dr. Jewell in [place] which revealed an EF of 55% with [...] by DIVINA DOSS on 11/27/2021 10:48 PM [facility] HospitalUerahqio29-08-2873 Note Date of Service 11/27/2021 postop day #4 Chief Complaint This is a 71-year-old female with past medical history of CAD status post PCI in 2016, hypothyroidism, hypertension, hyperlipidemia, irritable bowel syndrome, diabetes, history of DVT, history of tobacco use (quit 6 years ago), history of GI bleeds requiring blood transfusions, and obesity. She hada cardiac catheterization completed with her floor plan adjuster, Dr. Jewell in [place] which revealed an EF of 55% with [...] nebs. nitroprusside drip has been weaned off. [facility] consulted for diabetic management. PT/OT consulted. [...] obtain urinalysis and urine culture, and consult [facility]. WBC 20.3 this morning. Discontinue A-line. [...] inflammatory process. [1] Assessment/Plan 1. CAD IN [place] ARTERY s/p PCI 2016; s/p CABG x2 [...] by KAELYN DREW on 11/27/2021 09:00 AM [facility] HospitalFgfrafxm28-25-1883 Note ORIGINAL EXAMINATION: TWO XRAY VIEWS OF [...] 11/27/2021 7:51:49 AM Ordering Provider: NAT DUNN [facility]Vyahcsba97-22-2404 Note ORIGINAL EXAMINATION: TWO XRAY VIEWS OF [...] Sign Date: 11/27/2021 7:51:49 AM Ordering Provider: [facility]09-11-2022 Nurse Progress note Patient had increased SOB and chest pain around 2100. EKG obtained showing SR with RBBB, unchanged from prior. Dr. Kohler notified or patient status, orders obtained from CXR and ABG. Results discussedwith Dr. Kohler, order for patient to go on bipap and recheck ABG in 1 hour. Patient placed on bipap-frequently legal services professional-light, requesting to come off. Patient thoroughly educated [...] Avis Peters RN on 11/26/2021 10:49 PM [facility] HospitalOajtwato24-84-0116 Note ORIGINAL EXAMINATION: ONE XRAY VIEW OF [...] Sign Date: 11/26/2021 9:26:00 PM Ordering Provider: [facility]09-11-2022 Note ORIGINAL EXAMINATION: ONE XRAY VIEW OF [...] Sign Date: 11/26/2021 9:26:00 PM Ordering Provider: [facility]09-11-2022 Endocrinology Progress note Date of Service 11/26/21 [...] qualifying data available. Assessment/Plan 1. CAD IN [place] ARTERY s/p PCI 2015; s/p CABG x2 [...] She hada cardiac catheterization completed with her floor plan adjuster, Dr. Jewell in [place] which revealed an EF of 55% with [...] A1c goals, glycemic targets. Would benefit from communications writer and certified adapted physical educator evaluation. Appreciate their input. She is [...] by CRYSTAL PRESSLEY on 11/26/2021 04:48 PM [facility]Uaonornj41-42-0221 Urology Consult note Date of Service 11/26/21 Reason for Consultation Urinary retention Referring Physician Dr. Kohler History of Present Illness s/p 2v CABG by Dr. Philippe on 11/23/21. [place] was removed postop. Patient was voiding freely. She complained of dysuria. UA was negative for UTI. AIC=622 cc. [place] catheter was inserted. Patient has [...] (2) No ventral hernias. Musculoskeletal: (1) Normal sailmaker strength and tone bilaterally. Neurologic: (1) Grossly [...] Negative. (11/26/21 07:27:00) Assessment/Plan 1. CAD IN [place] ARTERY s/p PCI 2016; s/p CABG x2 [...] List/Past Medical History Ongoing Bronchitis CAD IN [place] ARTERY CARDIOGENIC SHOCK CHEST PAIN IN ADULT [...] mg= 1 tab(s), Oral, qDayAC Sore Throat Buhl, 1 spray(s), Topical, q1h, PRN Surfak Stool [...] SAQIB FRASER MD on 11/26/2021 11:01 AM [facility] [id number] Pulmonary Progress note Date of Service 11/26/2021 Chief Complaint 71-year-old female with past medical history of CAD status post PCI in 2016, hypothyroidism, hypertension, hyperlipidemia, irritable bowel syndrome, diabetes, history of DVT, history of tobacco use (quit 6 years ago), history of GI bleeds requiring blood transfusions, and obesity. She had a cardiac catheterization completed with her floor plan adjuster, Dr. Jewell in [place] which revealed an EF of 55% with [...] qualifying data available. Assessment/Plan 1. CAD IN [place] ARTERY s/p PCI 2015; s/p CABG x2 [...] DOLORES CARRILLO MD on 11/26/2021 10:48 AM [facility] HospitalMgqymbnt65-59-9782 Nurse Progress note Patient refusing to sit in chair for meals and refusing to ambulate per physician orders, despite education of expectations and complications from failure to do these. Digitally Signed by LARS Lopez on 11/26/2021 08:08 AM [facility] HospitalFipitybi09-57-4334 Note Date of Service 11/26/2021 Chief Complaint POD #3 This is a 71-year-old female with past medical history of CAD status post PCI in 2016, hypothyroidism, hypertension, hyperlipidemia, irritable bowel syndrome, diabetes, history of DVT, history of tobacco use (quit 6 years ago), history of GI bleeds requiring blood transfusions, and obesity. She hada cardiac catheterization completed with her floor plan adjuster, Dr. Jewell in [place] which revealed an EF of 55% with [...] nebs. nitroprusside drip has been weaned off. [facility] consulted for diabetic management. Currently on [...] obtain urinalysis and urine culture, and consult [facility]. WBC 20.3 this morning. Chest x-ray [...] qualifying data available. Assessment/Plan 1. CAD IN [place] ARTERY s/p PCI 2015; s/p CABG x2 11/23/21, EF55% Normal sinus rhythm. Heart rate ranging 84-88. Blood pressures ranging 127/66- 147/65. No aspirin orstatin secondary to allergies. On carvedilol. Weight down 1.5 kg since yesterday. On Bumex/KCl. 2. Acute blood loss anemia H&H 10.3 and 31.7. 3. Diabetes mellitus Hgb A1c 9.7% Followed by [facility]. Glucoses ranging 94-209. On Humalog [...] by NAT DUNN on 11/26/2021 10:49 AM [facility] HospitalZsmgxobf70-22-1210 Note ORIGINAL EXAMINATION: ONE XRAY VIEW OF [...] 11/26/2021 6:50:40 AM Ordering Provider: NAT DUNN [facility]Oatgtzgi58-00-1647 Note ORIGINAL EXAMINATION: ONE XRAY VIEW OF [...] Date: 11/26/2021 6:50:40 AM Ordering Provider: NAT [facility]09-10-2022 Endocrinology Progress note Date of [...] qualifying data available. Assessment/Plan 1. CAD IN [place] ARTERY s/p PCI 2016; s/p CABG x2 [...] She hada cardiac catheterization completed with her floor plan adjuster, Dr. Jewell in [place] which revealed an EF of 55% with [...] A1c goals, glycemic targets. Would benefit from communications writer and certified adapted physical educator evaluation. Appreciate their input. She is [...] by CRYSTAL PRESSLEY on 11/25/2021 05:28 PM [id number] Pulmonary Progress note Date of Service 11/25/2021 Chief Complaint 71-year-old female with past medical history of CAD status post PCI in 2016, hypothyroidism, hypertension, hyperlipidemia, irritable bowel syndrome, diabetes, history of DVT, history of tobacco use (quit 6 years ago), history of GI bleeds requiring blood transfusions, and obesity. She had a cardiac catheterization completed with her floor plan adjuster, Dr. Jewell in [place] which revealed an EF of 55% with [...] qualifying data available. Assessment/Plan 1. CAD IN [place] s/p PCI 2015; s/p CABG x2 [...] DOLORES CARRILLO MD on 11/25/2021 10:42 AM [facility]Jlwwegyl24-33-4500 Note Date of Service 11/25/2021 Chief Complaint POD #2: This is a 71-year-old female with past medical history of CAD status post PCI in 2016, hypothyroidism, hypertension, hyperlipidemia, irritable bowel syndrome, diabetes, history of DVT, history of tobacco use (quit 6 years ago), history of GI bleeds requiring blood transfusions, and obesity. She hada cardiac catheterization completed with her floor plan adjuster, Dr. Jewell in [place] which revealed an EF of 55% with [...] nebs. nitroprusside drip has been weaned off. [facility] consulted for diabetic management. Currently on [...] murmur, positive pericardial friction rub, heart rate [id number], temporary a and V pacer wires intact; [...] post op day Assessment/Plan 1. CAD IN [place] s/p PCI 2015; s/p CABG x2 [...] Diabetes mellitus Hgb A1c 9.7% Followed by [facility]. Glucoses ranging 67-154. No longer [...] by NAT DUNN on 11/25/2021 10:54 AM [id number] Note ORIGINAL EXAMINATION: ONE XRAY VIEW OF [...] Sign Date: 11/25/2021 6:55:32 AM Ordering Provider: [facility]09-10-2022 Note ORIGINAL EXAMINATION: ONE XRAY VIEW OF [...] Sign Date: 11/25/2021 6:55:32 AM Ordering Provider: [facility]09-09-2022 Note ORIGINAL EXAMINATION: ONE XRAY VIEW OF [...] 11/24/2021 10:21:41 PM Ordering Provider: POLLY PHILIPPE [id number] Note Result type: Cardiothoracic Surgery Office Note Result date: November 21, 2021 14:15 EDT Result status: Auth (Verified) Result title: Office Visit Note Performed by: POLLY PHILIPPE MD on November 21, 2021 14:15 EDT Verified by: POLLY PHILIPPE MD on November 21, 2021 14:15 EDT Encounter info: [id number], [facility], Office, 11/21/2021 - 11/21/2021 Chief [...] Retention : No Urinary Urgency : No Jennifer Padilla RN 11/21/2021 13:29 EDT Hematology Review [...] List/Past Medical History Ongoing Bronchitis CAD IN [place] CARDIOGENIC SHOCK CHEST PAIN IN ADULT [...] by CAROLINE Willingham on 11/24/2021 02:06 PM [id number] Endocrinology Consult note Date of Service 11/24/21 [...] She hada cardiac catheterization completed with her floor plan adjuster, Dr. Jewell in [place] which revealed an EF of 55% with [...] 103 mg/dL 82-115 Assessment/Plan 1. CAD IN [place] s/p PCI 2015; s/p CABG x2 [...] She hada cardiac catheterization completed with her floor plan adjuster, Dr. Jewell in [place] which revealed an EF of 55% with 70% stenosis of the left main and a patent stent in her right coronary artery. Shewas seen and evaluated by Dr. Philpipe. On November 23, 2021, she underwent a [...] A1c goals, glycemic targets. Would benefit from communications writer and certified adapted physical educator evaluation. Appreciate their input. She is [...] List/Past Medical History Ongoing Bronchitis CAD IN [place] CARDIOGENIC SHOCK CHEST PAIN IN ADULT [...] mg= 1 tab(s), Oral, qDayAC Sore Throat Buhl, 1 spray(s), Topical, q1h, PRN Surfak Stool [...] by CRYSTAL PRESSLEY on 11/24/2021 03:52 PM [facility]Dxsapbeu47-11-9851 Pulmonary Consult note Date of Service 11/24/2021 History of Present Illness 71-year-old female with past medical history of CAD status post PCI in 2015, hypothyroidism, hypertension, hyperlipidemia, irritable bowel syndrome, diabetes, history of DVT, history of tobacco use (quit 6 years ago), history of GI bleeds requiring blood transfusions, and obesity. She had a cardiac catheterization completed with her floor plan adjuster, Dr. Jewell in [place] which revealed an EF of 55% with [...] left basilar consolidation. Assessment/Plan 1. CAD IN [place] s/p PCI 2015; s/p CABG x2 [...] List/Past Medical History Ongoing Bronchitis CAD IN [place] CARDIOGENIC SHOCK CHEST PAIN IN ADULT [...] mg= 1 tab(s), Oral, qDayAC Sore Throat Buhl, 1 spray(s), Topical, q1h, PRN Surfak Stool [...] CHRIS FRY MD on 11/24/2021 11:15 AM [facility]Tnywcveh76-57-9106 Note Date of Service 11/24/2021 Chief Complaint POD #1 This is a 71-year-old female with past medical history of CAD status post PCI in 2016, hypothyroidism, hypertension, hyperlipidemia, irritable bowel syndrome, diabetes, history of DVT, history of tobacco use (quit 6 years ago), history of GI bleeds requiring blood transfusions, and obesity. She hada cardiac catheterization completed with her floor plan adjuster, Dr. Jewell in [place] which revealed an EF of 55% with [...] pulmonary. nitroprusside drip has been weaned off. [facility] consulted for diabetic management. Currently on [...] qualifying data available. Assessment/Plan 1. CAD IN [place] s/p PCI 2016; s/p CABG x2 [...] insulin drip at 2 units/h. Will consult [facility]. 4. High blood pressure Blood [...] to 40% FiO2. Consult pulmonary Plan: Consult [facility] for diabetic management Consult PT [...] by NAT DUNN on 11/24/2021 08:20 AM [facility] HospitalTxdtolsk65-34-0710 Note ORIGINAL EXAMINATION: ONE XRAY VIEW OF [...] Sign Date: 11/24/2021 10:21:41 PM Ordering Provider: [facility]09-08-2022 Note ORIGINAL EXAMINATION: ONE XRAY VIEW [...] Sign Date: 11/23/2021 1:40:56 PM Ordering Provider: [facility]09-08-2022 Note ORIGINAL EXAMINATION: ONE XRAY VIEW [...] Sign Date: 11/23/2021 1:40:56 PM Ordering Provider: [facility]09-08-2022 Anesthesiology Consult note Patient: FELICITAS ALCANTARA Age: [...] 15 mL, 3 Refill(s), Pharmacy: [facility] [address], 157.2, cm, 01/21/20 14:13:00EST, Height, kg, 01/21/20 14:13:00 EST, Dosing Weight nitroglycerin 0.4 mg sublingual tablet: 0.4 mg Dose = 1 tab(s), Sublingual, q5min, PRN as needed for chest pain, # 25 tab(s), 3 Refill(s), Pharmacy: [facility] [address], 157.5, cm, 08/31/19 16:27:00 EDT, Height, [...] (deep vein thrombosis) in / SNOMED CT 40304008 / Confirmed Bronchitis / SNOMED CT 63433440 / Confirmed CARDIOGENIC SHOCK / SNOMED CT 858479468 / Confirmed CHEST PAIN IN ADULT / SNOMED CT 18751980 / Confirmed CKD stage 3 / SNOMED CT 8369333960 / Confirmed CONGESTIVE HEART FAILURE, UNSPECIFIED CONGESTIVE HEART FAILURE CHRONICITY, UNSPECIFIED CONGESTIVE HEART FAILURE TYPE / SNOMED CT 23373638 / Confirmed Coronary artery disease / SNOMED CT 3178158223 / Confirmed CAD IN [place] / SNOMED CT 9914931978 / Confirmed Diabetes mellitus / SNOMED CT 959770452 / Confirmed Dysphagia / SNOMED CT 08747915 / Confirmed FATIGUE / SNOMED CT 584755549 / Confirmed Heart attack / SNOMED CT 93204435 / Confirmed High blood pressure / SNOMED CT 69226081 / Confirmed HISTORY OF ST ELEVATION MYOCARDIAL INFARCTION (STEMI) / SNOMED CT 5889297803 / Confirmed H/O irritable bowel syndrome / SNOMED CT 9604219846 / Confirmed Former tobacco use / SNOMED CT 8665163522 / Confirmed Hyperlipemia / SNOMED CT 97141717 / Confirmed Hypertension / SNOMED CT 46767378 / Confirmed Hypothyroid / SNOMED CT 450916747 / Confirmed IBS (irritable bowel syndrome) / SNOMED CT 90979618 / Confirmed Non-compliance / SNOMED CT 5282769514 / Confirmed OBESITY / SNOMED CT 2197397593 / Confirmed Perforated ulcer / SNOMED CT 622480787 / Confirmed Polyneuropathy / SNOMED CT 09643724 / Confirmed Type 2 diabetes mellitus uncontrolled / SNOMED CT 8593243496 / Confirmed Urinary tract infection / SNOMED CT 076844423 / Confirmed VITAMIN D DEFICIENCY / SNOMED CT 92288722 / Confirmed, Active Problems (33) Bronchitis CAD IN [place] CARDIOGENIC SHOCK CHEST PAIN IN ADULT [...] Histories Past Medical History: Active Perforated ulcer (355473628) DVT (deep vein thrombosis) in (68807601) High blood pressure (00426126) Bronchitis (65833720) Diabetes mellitus (892006578) Urinary tract infection (483515196) Coronary artery disease (1459087154) Former tobacco use (3220838472) Comments: 04/09/2016 EST 19:51 Summer Reddy RN quit 12/2015 Family History: Cardiac pacemaker Brother COPD - Chronic obstructive pulmonary disease Sister Diabetes mellitus Sister Heart disease Brother Stroke Father ([place]) Heart attack Mother ([place]) Cancer Sister Aneurysm Father ([place]) Heart attack 14-Sep-2015 02:33:12<$> Mother ([place]) Brother Procedure history: CABG (Coronary artery bypass grafting) planned (3959645471) on 11/23/2021 at 71 Years. Cardiac catheterization (30700516) on 09/05/2021 at 70 Years. Cardiac catheterisation (126050479) on 04/10/2016 at 65 Years. Comments: 04/10/2016 5:58 LARS Rodriguez D possible PTCA Stent placement (556085753) on 01/03/2016 at 65 Years. History of hysterectomy ([id number]). Hysterectomy (371262251). H/O: tubal ligation (862981320). Histology tonsillectomy (009571609). Colonoscopy (869383559). EGD - Esophagogastroduodenoscopy (3690180425). Social History Social & Psychosocial Habits Alcohol [...] Person #2 We May Share PHI Katherine [phone] Designated Person #2 Relationship Other: sister Additional Designated Person Share PHI Kathya- daughter Privacy Restrictions Requested None Height 157.5 cm Admission Weight 102.3 kg Weight Method Actual [place] Body Weight 50.12 kg Body Mass Index [...] Loss No Safety Brochure Information Reviewed Yes [facility] Video Viewed No Barriers to Learning None evident Teaching Method Printed materials Teaching Evaluation Verbalizes/Nonverbally indicates understanding Preferred Written Language Gibraltarian Preferred Spoken Language [place]tarian Information Given by Patient Patient's Current Physicians [...] Ready for Pickup . Assessment and Plan [place] [employer] Anesthesiologists (ASA) physical status classification: [...] JOHNATHON TANNER DO on 11/23/2021 08:39 AM [id number] SARS-CoV-2 (COVID-19) RNA SLOAN+probe Ql (Nph)Negative (11/17/21 12:00 PM)AO Auto Urine [id number] Evaluation note* Diagnosis Onset Date Resolution Status History of coronary artery bypass surgery November, acute Essential hypertension chron ic Hyperlipemia chronic Hypothyroidism chronic IBS (irritable bowel syndrome) chronic Type 2 diabetes mellitus chr onic History of coronary artery bypass surgery November, acute Atherosclerotic heart diseas e [place] coronary artery without angina pectoris chronic Dyspnea on exertion chronic Essential hypertension chron ic Hyperlipemia chronic Presence of stent in coronary artery March, [facility] Work Phone: 1(459) 790-669301-01-2017 Evaluation note* Diagnosis Onset Date Resolution Status History of non-ST elevation myocardial infarction (NSTEMI) acute Essential hypertension chron ic Hyperlipemia chronic Hypothyroidism chronic Presence of stent in coronary artery March, chronic Type 2 diabetes mellitus chr [facility] Work Phone: 1(360) 701-509001-01-2017 Evaluation note* Diagnosis Onset Date Resolution Status History of non-ST elevation myocardial infarction (NSTEMI) acute Essential hypertension chron ic Hyperlipemia chronic Hypothyroidism chronic Presence of stent in coronary artery March, chronic Type 2 diabetes mellitus chr onic Dyspnea on exertion acute Atherosclerotic heart diseas e [place] coronary artery without angina pectoris chronic Essential hypertension chron ic Hyperlipemia chronic Presence of stent in coronary artery March, [facility] Work Phone: 1(347) 505-208901-01-2017 Evaluation note* Diagnosis Onset Date Resolution Status History of non-ST elevation myocardial infarction (NSTEMI) acute Essential hypertension chron ic Hyperlipemia chronic Hypothyroidism chronic Presence of stent in coronary artery March, chronic Type 2 diabetes mellitus chr onic Atherosclerotic heart diseas e [place] coronary artery without angina pectoris chronic Dyspnea on exertion chronic Essential hypertension chron ic Hyperlipemia chronic Presence of stent in coronary artery March, chronic Atherosclerotic heart diseas e [place] coronary artery without angina pectoris chronic Dyspnea on exertion chronic Essential hypertension chron ic Hyperlipemia chronic Presence of stent in coronary artery March, [facility] Work Phone: Evaluation + Plan note Future Appointments Appointment Date:11/21/2021 02:00:00 PM Scheduled Provider:POLLY PHILIPPE MD Location:[facility] Appointment Type:[facility] Evaluation + Plan note Future Appointments Appointment Date:12/05/2021 10:00:00 AM Scheduled Provider:JUAN JUAREZ Location:[facility] Appointment Type:[facility] Post Op [facility] Evaluation + Plan note Future Appointments Appointment Date:12/27/2021 01:00:00 PM Scheduled Provider:JUAN JUAREZ Location:[facility] [place] Appointment Type:CTS OV Post Op Follow Up Future Scheduled Tests Laboratory* Basic Metabolic Panel 12/01/21 Radiology* XR Chest 2 Views (PA & Lateral) 12/27/21 * XR Chest 2 Views (PA & Lateral) 12/19/21 [facility] Evaluation note* Diagnosis Onset Date Resolution Status Atherosclerotic heart diseas [place] coronary artery without angina pectoris chronic Dyspnea on exertion chronic Essential hypertension chron ic Hyperlipemia chronic Presence of stent in coronary artery March, chronic [facility] Work Phone: Evaluation note* Diagnosis Onset Date Resolution Status Atherosclerotic heart diseas e [place] coronary artery without angina pectoris chronic Dyspnea on exertion chronic Essential hypertension chron ic Hyperlipemia chronic History of coronary artery bypass surgery November, 022 acute Atherosclerotic heart diseas e [place] coronary artery without angina pectoris chronic Essential hypertension chron ic Hyperlipemia chronic Hypothyroidism chronic IBS (irritable bowel syndrome) chronic Presence of stent in coronary artery March, chronic Type 2 diabetes mellitus chr onic [facility] Work Phone: History and physical note* CAROLINE Chandler: PERFORM, MODIFY Event Display: History and Physical Update Authored Date: [facility] Hospital course Narrative No data available for this section [facility] Hospital Discharge instructions No data available for this section [facility] Hospital Discharge instructions Additional Instructions Apply cream as prescribed and return for any worsening of symptoms.[facility] Work Phone: Progress note No data available for this section [facility] Rita Summary Purpose Family History No Family [...] Will No April 25 12:33pm Power of Engine Monitor No April 25, 2021 12:33pm Advance Directive Response Recorded Date/ Time Advance Directives No September 05 7:52am Living Will No September 05, 2021 7:52am Power of Engine Monitor No September 05 7:52am Advance Directive Response Recorded Date/ Time Advance Directives No September 05 7:52am Living Will No September 08, 2021 12:28pm Power of Engine Monitor No September 08 12:28pm Advance Directive Response Recorded Date/ Time Advance Directives No September 05 7:52am Living Will No November 05 2:17am Power of Engine Monitor No November 05 022 2:17am Advance Directive Response Recorded Date/ Time Advance Directives No September 05 6:52am Living Will No January 21 3:59pm Power of Engine Monitor No January 21, 2022 3:59pm Advance Directive Response Recorded Date/ Time Advance Directives No September 05 7:52am Living Will No January 21 4:59pm Power of Engine Monitor No January 21, 2022 4:59pm Advance Directive Response Recorded Date/ Time Advance Directives No September 05 7:52am Living Will No July 28, 2022 1 :12pm Power of Engine Monitor No July 28, 2022 1:12pm Advance Directive Response Recorded Date/ Time Living Will No January 14 1:05pm Do you have a Healthcare Power of Engine Monitor? No January 15, 2024 1:05pm Living Will No April 29, 2 025 10:02pm Do you have a Healthcare Power of Engine Monitor? No April 29, 2024 10:02pm Advance Directives [...] Dyspnea on exertion Atherosclerotic heart disease [place] coronary artery without angina pectoris Essential hypertension [...] Dyspnea on exertion Atherosclerotic heart disease [place] coronary artery without angina pectoris Essential hypertension [...] 2 diabetes mellitus Atherosclerotic heart disease of [place] coronary artery without angina pectoris Dyspnea on exertion Essential hypertension Hyperlipemia Presence of stent in coronary artery Atherosclerotic heart disease of [place] coronary artery without angina pectoris Dyspnea on [...] 2 diabetes mellitus Atherosclerotic heart disease of [place] coronary artery without angina pectoris Dyspnea on exertion Essential hypertension Hyperlipemia Presence of stent in coronary artery Atherosclerotic heart disease of [place] coronary artery without angina pectoris Dyspnea on exertion Essential hypertension Hyperlipemia Presence of stent in coronary artery Chief Complaint SOB, HX OF CAD *MOOD ISPAW* SOB, HX OF CAD *MOODISPAW* DYSPNEA DYSPNEA Update H&P for cath 09/05 L.[facility] CORONA/ ABN STRESS CORONA/ ABN STRESS headache, chills CHEST PAIN Reason for Visit Atherosclerotic hear t disease [place] coronary artery without angina pectoris Dyspnea on [...] artery bypass surgery Atherosclerotic heart disease of [place] coronary artery without angina pectoris Dyspnea on [...] artery bypass surgery Atherosclerotic heart disease of [place] coronary artery without angina pectoris Dyspnea on exertion Essential hypertension Hyperlipemia Presence of stent in coronary artery Chief Complaint 3 M FU 4 M FU Reason for Visit Atherosclerotic hear t disease of [place] coronary artery without angina pectoris Dyspnea on exertion Essential hypertension Hyperlipemia History of coronary artery bypass surgery Atherosclerotic heart disease of [place] coronary artery without angina pectoris Essential hypertension Hyperlipemia Hypothyroidism IBS (irritable bowel syndrome) Presence of stent in coronary artery Type 2 diabetes mellitus Chief Complaint 3 M FU 4 M FU HEADACHE, RASH Reason for Visit Atherosclerotic hear t disease of [place] coronary artery without angina pectoris Dyspnea on exertion Essential hypertension Hyperlipemia History of coronary artery bypass surgery Atherosclerotic heart disease of [place] coronary artery without angina pectoris Essential hypertension [...] 12: 52pm Atherosclerotic heart diseas e [place] coronary artery without angina pectoris July 02, 2024 12:52pm Essential hypertension July 02, 2024 12:52pm Hyperlipemia July 02, 2024 12: 52pm Hypothyroidism July 02, 2024 12: 52pm Type 2 diabetes mellitus July 02 12:52pm Chest pain July 02, 2024 12: 52pm Additional Source Comments INFORMATION SOURCE (unrecogn ized section and content) DATE CREATED AUTHOR 09/11/2017 [employer] DATE CREATED AUTHOR AUTHOR'S ORGANIZ ATION 12/28/2021 [employer] ([place]) DATE CREATED AUTHOR AUTHOR'S [...] Physician - Cardiothoracic Surgery Address: Address: [address] [place] [address] [address] [facility] [place] [address]- [place] Name: HARISH NOEL MD Member Role: Primary Care Physician Address: Address: [address] [place] [address] [place] [address]- Name: FORREST JEWELL MD Address: Address: [address] [address]- Care Team Related Persons Name: KATHERINE HOFFMANN Name: TIARRA KATHYA Care Team Personnel Name: POLLY PHILIPPE MD Position: P4 Physician - Cardiothoracic Surgery Med Service: Active Provider Member Role: Cardiothoracic Surgeon Address: Address: [address] [place] [address] [facility] [address] [facility] Cardiothoracic Surgery [place] [id number]- [place] Name: HARISH NOEL MD Member Role: Primary Care Physician Address: Address: [address] [place] [address]- Name: FORREST JEWELL MD Member Role: Practice Performance Manager Address: Address: [address] [place] [id number]- Care Team Related Persons Name: CHRISTINE OMSS Name: KATHERINE HOFFMANN Name: TIARRA KATHYA Care Team Personnel Name: POLLY PHILIPPE MD Position: P4 Physician - Cardiothoracic Surgery Med Service: Active Provider Member Role: Cardiothoracic Surgeon Address: Address: [address] [place] [address] [address] [facility] Cardiothoracic Surgery [place] [id number]- Name: HARISH NOEL MD Member Role: Primary Care Physician Address: Address: [address] [place] [address]- Name: FORREST JEWELL MD Member Role: Practice Performance Manager Address: Address: [facility] [address] [place] [address]- [place] Care Team Related Persons Name: CHRISTINE MOSS Name: KATHERINE HOFFMANN Name: TIARRA KATHYA Care Team Personnel Name: POLLY PHILIPPE MD Position: P4 Physician - Cardiothoracic Surgery Med Service: Active Provider Member Role: Cardiothoracic Surgeon Address: Address: [address] [place] [address] [facility] [address] [facility] Cardiothoracic Surgery [place] [id number]- Name: HARISH NOEL MD Member Role: Primary Care Physician Address: Address: [address] [place] [address] [address] [place] [address]- Name: FORREST JEWELL MD Member Role: Practice Performance Manager Address: Address: [address] [facility] [address] [place] [address]- [place] Care Team Related Persons Name: CHRISTINE [...] Provider, Referri ng Provider Active Rustam Francois BRAZE OPERATOR, BRAZE OPERATOR-C Attending Provider Active Team Status: Inactive Member Role Status Dates Dr. Harish Noel MD Primary Care Provider Active Rustam Francois BRAZE OPERATOR, BRAZE OPERATOR-C Attending Provider, Referring Pro vider Active [...] Active Start: April 30, 2024 Dr. Nathan Trores DO Attending Provider Active Start: April 30, [...] BE BASED ON THE PRIMARY CLINICAL RECORDS. [facility]. provides no warranty or guarantee of the accuracy or completeness of information in this document.
[2024-09-07 00:59] LABS: Partial Thromboplast Time 25.3 Seconds (24.1-36.2); Prothrombin Time (Protime)PT. 13.5 SECONDS (11.7-14.9)
--- NOTE | 2024-09-07 01:00 | RAD_ITS ---
PROCEDURE: CHEST PA AND LATERAL 09/07/2024 REASON FOR EXAM: CHEST PAIN TECHNIQUE: CHEST PA AND LATERAL COMPARISON: 04/29/2024. FINDINGS: Unremarkable median sternotomy wires. The lungs are expanded. There is no demonstrated parenchymal abnormality. There is no demonstrated pleural abnormality. Enlarged cardiac silhouette. Normal mediastinum and yris. Normal visualized pulmonary arteries. Atheromatous plaques of the visualized aortic arch and descending thoracic aorta. Diffuse spondylosis of the visualized thoracic spine. Normal visualized ribs, clavicles. Degenerative joint disease. There is no demonstrated abnormality of the visualized soft tissue structures of the upper abdomen. RAD/Chest PA and Lateral IMPRESSION: No evidence for acute abnormality. Reading Location: [facility]
--- NOTE | 2024-09-07 01:00 | RAD_ITS ---
PROCEDURE: CHEST PA AND LATERAL 09/07/2024 REASON FOR EXAM: CHEST PAIN TECHNIQUE: CHEST PA AND LATERAL COMPARISON: 04/29/2024. FINDINGS: Unremarkable median sternotomy wires. The lungs are expanded. There is no demonstrated parenchymal abnormality. There is no demonstrated pleural abnormality. Enlarged cardiac silhouette. Normal mediastinum and yris. Normal visualized pulmonary arteries. Atheromatous plaques of the visualized aortic arch and descending thoracic aorta. Diffuse spondylosis of the visualized thoracic spine. Normal visualized ribs, clavicles. Degenerative joint disease. There is no demonstrated abnormality of the visualized soft tissue structures of the upper abdomen. RAD/Chest PA and Lateral IMPRESSION: No evidence for acute abnormality. Reading Location: [facility]
[2024-09-07] MEDS: Nitroglycerin SL (ED/IMG/CATH) 0.4 MG TABLET SL (01:06)
[2024-09-07 01:14] LABS: Anion Gap 12 (5-15); BUN 13 mg/dL (4-19); BUN/Creat Ratio 15.2 RATIO (10-20); Calcium,Total 9.5 mg/dL (7.6-11.0); Carbon Dioxide 26.1 mmol/L (21.0-32.0); Chloride 98 mmol/L (98-108); Creatinine, Serum 0.86 mg/dL (0.70-1.20); EST Glomerular Filtration Rate 72 (>60); Glucose 232 mg/dL (70-99); Potassium 4.5 mmol/L (3.3-5.1); Sodium Level 136 mmol/L (133-145)
[2024-09-07 01:24] LABS: Pro- Brain NATRIURETIC PEPTIDE 619 pg/mL (<=900); Troponin T High Sensitivity 21 ng/L (<=14)
[2024-09-07 01:32] LABS: D-Dimer Quantitative (DVT/PE) < 0.27 FEU/ug/m (0.27-0.49)
[2024-09-07 02:17] LABS: Bedside Glucose 210 mg/dL (74-106)
--- NOTE | 2024-09-07 02:20 | ED.RN ---
Daughter, Kathya called to check on the pt and was updated--per permission from the pt. Daughter stated that she lives too far away to pck her up. Made her aware that taxi's start running around 530-6am if she is discharged. Daughter satsfied with that answer.
[2024-09-07 02:52] LABS: Troponin T High Sens 2 HR 19 ng/L (<=14)
--- NOTE | 2024-09-07 03:11 | PCM.HP.STD ---
[facility] - General General Date of Admission: 09/07/24 Date of Service: 09/07/24 Chief Complaint: Chest Pain. HPI Narrative FELICITAS ALCANTARA, is a 73 F with a past medical history of essential hypertension; on carvedilol, hypothyroidism; on levothyroxine, hyperlipidemia; currently not on treatment, morbid obesity; with BMI of 42 this admission, former tobacco abuse, CAD; s/p NSTEMI with stents (2015 to LAD/2017 to RCA) and subsequent CABG x 2 (2021), remote history of DVT attributed to , DM-2; of unknown control, IBS, history of CTS and OA who presents to [facility] ER complaining of chest pain. Ms. 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 She states she does not specifically remember the angina that heralded her previous stents and CABG so she cannot compare them. She has been followed by Dr. Woo of [facility] for ongoing exertional dyspnea that they suspect is due to underlying CAD. She denies associated fever, chills, diaphoresis, impending doom, lower extremity edema/pain, nausea, vomiting, diarrhea, constipation, headache or rash. In the ER she was noted to have mildly elevated troponin T of 21 ng/L present on admission with a second troponin T of 19 ng/L in addition to a negative D-dimer of <0.27 along with a CXR that revealed no evidence of acute abnormality with Leukocytosis of 14.1K present on admission suspected to be due to acute stress response with no obvious signs of infection. She was then admitted to the PCU under observation status for a stay that is expected to be less than 2 midnights. [facility] Medical History Morbid obesity with BMI of 40.0-44.9, adult History of left heart catheterization (LHC) (~09/05/21) Presence of stent in coronary artery (~04/10/16) Abnormal nuclear stress test Dyspnea on exertion Mass of lip Elevated WBC count History of DVT (deep vein thrombosis) History of non-ST elevation myocardial infarction (NSTEMI) Cardiogenic shock Type 2 diabetes mellitus Atherosclerotic heart disease of [place] coronary artery without angina pectoris Essential hypertension Carpal tunnel syndrome Hyperlipemia Hypertension Hypothyroidism History of pneumonia IBS (irritable bowel syndrome) Diabetes Home Medications ?Medication ?Instructions ?Recorded ?Last Taken ?Type blood-glucose sensor (Dexcom G7 #1 ea 01/20/24 Unknown Rx Sensor device) carvedilol 25 mg tablet 25 mg PO BID blood pressure #60 04/15/24 09/06/24 Rx tabs insulin NPH-regular 70-30 U-100 See Rx Instructions subcut 08/17/24 09/06/24 Rx insulin 100 unit/mL subcutaneous .COMPLEX #15 mL pen (Novolin 70-30 FlexPen U-100 Insulin) albuterol sulfate 90 mcg/actuation 2 puff inhalation Q6H PRN 09/07/24 09/06/24 History aerosol inhaler shortness of breath or wheezing levothyroxine 112 mcg tablet 112 mcg PO DAILY 09/07/24 09/05/24 History Allergy/AdvReac Type Severity Reaction Status Date / Time alogliptin Allergy Hives Verified 09/07/24 00:14 dulaglutide (From Trulicity) Allergy Hives Verified 09/07/24 00:14 glipizide Allergy Hives Verified 09/07/24 00:14 metformin Allergy Hives Verified 09/07/24 00:14 Penicillins (PCN) Allergy Hives Verified 09/07/24 00:14 aspirin AdvReac Severe blood Verified 09/07/24 00:14 clots canagliflozin (From Invokana) AdvReac Severe abdominal Verified 09/07/24 00:14 pain Family History Sister Breast cancer Mother Hypertension Heart disease Myocardial infarction, Onset Age: 61 Thyroid disorder Grandmother Arthritis Seizures Father CVA (cerebral vascular accident) Brother Heart disease Myocardial infarction Sister CAD (coronary artery disease) Surgical History Hx of heart bypass surgery History of coronary artery bypass surgery (~11/23/21) History of excision of mass (~07/2020) Presence of coronary angioplasty implant and graft (~04/10/16) History of tubal ligation History of hysterectomy History of tonsillectomy Social History household members: none Smoking Status: Former smoker how long ago did patient quit smokin12/2015 alcohol intake: never substance use type: does not use caffeine: Yes Type: coffee Number of servings: 1 frequency: 1-2 times per week ROS ROS Narrative Review of Systems: Constitutional: Patient denies fever or chills. Eyes: Patient denies changes in vision or discharge from eyes. ENT: Patient denies runny nose, sore throat or ear pain. Resp: Patient denies SOB or cough. CV: Patient admits to chest pain that was Left-sided and nonradiating. GI: Patient denies abdominal pain, nausea, vomiting, diarrhea or constipation. : Patient denies dysuria or hematuria. MSK: Patient denies arthralgias or myalgias. Skin: Patient denies rash, wounds or jaundice. Psych: Patient denies symptoms of uncontrolled depression or anxiety. Neuro: Patient denies headache, paresthesias or focal neurologic deficits. Allergy: Patient denies swelling, tongue swelling or urticaria. Hematology: Patient denies easy bleeding or easy bruisability. Endocrinology: Patient denies polyuria, polydipsia, polyphagia or heat/cold intolerance. 14 point ROS otherwise negative except for positives noted above in HPI. Vital Signs Vital Signs Vital Signs: 09/07/24 00:11 09/07/24 00:14 09/07/24 00:17 Temperature 98.1 F Temperature Source Oral Pulse Rate 67 72 Respiratory Rate 17 21 H Respiratory Effort Short of Breath Blood Pressure 144/63 H Blood Pressure Mean 90 Pulse Ox 93 95 Oxygen Delivery Method Room Air 09/07/24 00:30 09/07/24 00:34 09/07/24 00:37 Temperature Temperature Source Pulse Rate 74 75 66 Respiratory Rate 18 18 20 H Respiratory Effort Blood Pressure 137/75 H Blood Pressure Mean 90 Pulse Ox 95 93 92 Oxygen Delivery Method 09/07/24 00:49 09/07/24 00:49 09/07/24 01:04 Temperature Temperature Source Pulse Rate 75 70 Respiratory Rate 19 H 16 Respiratory Effort Blood Pressure 148/64 H 148/64 H Blood Pressure Mean 85 85 Pulse Ox 94 94 Oxygen Delivery Method Room Air 09/07/24 01:05 09/07/24 01:06 09/07/24 01:10 Temperature Temperature Source Pulse Rate 73 73 69 Respiratory Rate 14 14 Respiratory Effort Blood Pressure 137/65 H 137/65 H 123/53 H Blood Pressure Mean 86 74 Pulse Ox 92 92 Oxygen Delivery Method Room Air 09/07/24 01:15 09/07/24 01:30 09/07/24 01:45 Temperature Temperature Source Pulse Rate 65 73 Respiratory Rate 14 23 H Respiratory Effort Blood Pressure 107/58 L 118/75 112/63 Blood Pressure Mean 73 87 75 Pulse Ox 92 94 89 Oxygen Delivery Method 09/07/24 02:00 09/07/24 02:15 09/07/24 02:59 Temperature Temperature Source Pulse Rate 69 68 Respiratory Rate 15 24 H Respiratory Effort Blood Pressure 150/72 H 152/82 H Blood Pressure Mean 94 103 Pulse Ox 94 94 93 Oxygen Delivery Method 09/07/24 03:00 Temperature Temperature Source Pulse Rate Respiratory Rate 18 Respiratory Effort Blood Pressure Blood Pressure Mean Pulse Ox Oxygen Delivery Method Physical Exam Const alert, oriented x3 and no apparent distress Constitutional Narrative: Morbidly obese. General Appearance: cooperative HEENT normocephalic, head/scalp atraumatic, hearing grossly normal bilaterally and moist oral mucous membranes Eyes PERRL and EOMs intact bilaterally Neck no lymphadenopathy and supple Resp normal respiratory effort, no retractions, no use of accessory muscles and clear to auscultation bilaterally Cardio regular rate and regular rhythm GI normal to inspection, nondistended, normoactive bowel sounds, soft to palpation, non-tender and non-distended Extremity normal to inspection, full ROM and no clubbing, cyanosis or edema Skin Skin Narrative: Patient has no evidence of rash, abscess, wounds or jaundice. Neuro oriented x3, CN's II-XII intact bilaterally, moves all extremities and no focal motor deficits Sensorium / Orientation: awake, alert, oriented to person, oriented to place and oriented to time Speech: speech normal Psych affect normal Results Medical Records Data Attestation: I reviewed the patient's medical records Lab / Micro Data Attestation: I reviewed the patient's lab results. 09/07/24 00:15 09/07/24 00:15 Labs: Laboratory Results - last 24 hr 09/07/24 00:15: WBC 14.1 H, RBC 4.70, Hgb 13.9, Hct 43.2, MCV 91.9, MCH 29.6, MCHC 32.2, RDW Std Deviation 44.1 H, RDW Coeff of Eveline 13.1, Plt Count 272, MPV 11.6, Immature Gran % (Auto) 0.600, Neut % (Auto) 80.9 H, Lymph % (Auto) 11.3 L, [place] % (Auto) 5.1, Eos % (Auto) 1.6, Baso % (Auto) 0.5, Absolute Neuts (auto) 11.4 H, Absolute Lymphs (auto) 1.59, Nucleated RBC % 0, PT 13.5, INR 1.0, APTT 25.3, D-Dimer Quant (PE/DVT) < 0.27 L, Sodium 136, Potassium 4.5, Chloride 98, Carbon Dioxide 26.1, Anion Gap 12, BUN 13, Creatinine 0.86, Est GFR (MDRD) Non-Af 72, BUN/Creatinine Ratio 15.2, Glucose 232 H, Calcium 9.5, Troponin T High Sens 21 H, NT pro BNP II 619 09/07/24 01:54: POC Glucose 210 H 09/07/24 02:15: Troponin T Hi Sens 2 Hr 19 H Imaging Radiology Impression Chest X-Ray 09/07/24 01:00 IMPRESSION: No evidence for acute abnormality. Reading [facility] Assessment & Plan Assessment/Plan (1) Chest pain: QUALIFIERS: Chest pain type: unspecified Qualified Code(s): R07.9 - Chest pain, unspecified (2) Coronary artery disease: QUALIFIERS: Associated angina: with unspecified form of angina Coronary Disease-Associated Artery/Lesion type: unspecified vessel or lesion type [place] vs. transplanted heart: [place] heart Qualified Code(s): I25.119 - Atherosclerotic heart disease of [place] coronary artery with unspecified angina pectoris (3) Presence of stent in coronary artery: (4) History of left heart catheterization (LHC): (5) Morbid obesity with BMI of 40.0-44.9, adult: (6) Leukocytosis: QUALIFIERS: Leukocytosis type: unspecified Qualified Code(s): D72.829 - Elevated white blood cell count, unspecified (7) Hypertension: QUALIFIERS: Hypertension type: unspecified Qualified Code(s): I10 - Essential (primary) hypertension PLAN: Plan 1. Chest Pain; with mildly elevated troponin T of 21 ng/L present on admission with a second troponin T of 19 ng/L in addition to a negative D-dimer of <0.27 along with a CXR that revealed no evidence of acute abnormality - Admit to PCU under observation status. Continue aspirin and prn sublingual NTG. Give acetaminophen prn for [id number] (level 1-5/10) pain or fever. Give morphine IV prn for severe (level 6-10/10) pain. Finally, we will consult [facility] to see this patient on rounds in the AM for further recommendations with help appreciated in advance. 2. CAD; s/p NSTEMI with stents (2015 to LAD/2016 to RCA) and subsequent CABG x 2 (2021) with recent exertional dyspnea attributed to suspected CAD complicating #1 - Noted. 3. Morbid (Class III) Obesity; with BMI of 42 this admission adding to the burden of disease outlined from #1 & #2 - 4. Leukocytosis of 14.1 present on admission with no obvious signs of infection - Check UA C&S. 5. Essential hypertension; on carvedilol - Maintain carvedilol as previous plus give prn IV hydralazine for systolic blood pressure > 160 mmHg. 6. Hypothyroidism; on levothyroxine - Continue levothyroxine and check TSH. 7. Hyperlipidemia; currently not on treatment - Resume statin and check Lipid Profile in light of #1. 8. Former tobacco abuse - Noted. 9. Remote history of DVT attributed to - Noted with no evidence of recurrence at this time. 10. DM-2; of unknown control - Keep NPO for now until [facility] done. FSBS q. 6 hours plus SSI. 11. IBS - Stable. 12. History of CTS - Noted. 13. OA - Give acetaminophen prn as outlined in #1. 14. DVT prophylaxis - Enoxaparin 40 mg sq BID plus SCD's. Total time: Approximately (but not less than) 70 minutes. Charges/Coding Visit Charges OBSV E&M: 55356 Observ/hosp same date L2
--- NOTE | 2024-09-07 03:11 | PCM.HP.STD ---
[facility] - General General Date of Admission: 09/07/24 Date of Service: 09/07/24 Chief Complaint: Chest Pain. HPI Narrative FELICITAS ALCANTARA, is a 73 F with a past medical history of essential hypertension; on carvedilol, hypothyroidism; on levothyroxine, hyperlipidemia; currently not on treatment, morbid obesity; with BMI of 42 this admission, former tobacco abuse, CAD; s/p NSTEMI with stents (2015 to LAD/2017 to RCA) and subsequent CABG x 2 (2021), remote history of DVT attributed to , DM-2; of unknown control, IBS, history of CTS and OA who presents to [facility] ER complaining of chest pain. Ms. Alcantara reports her symptoms began approximately 1 day prior to admission throughout the day on September 06, 2024 but worsened approximately 2 hours prior to arrival in the individualized education plan aide hours of September 07, 2024 with chest pain that was Left-sided, pressure-like and nonradiating with patient taking acetaminophen without relief along with exertion making it worse. She states she does not specifically remember the angina that heralded her previous stents and CABG so she cannot compare them. She has been followed by Dr. Woo of [facility] for ongoing exertional dyspnea that they suspect is due to underlying CAD. She denies associated fever, chills, diaphoresis, impending doom, lower extremity edema/pain, nausea, vomiting, diarrhea, constipation, headache or rash. In the ER she was noted to have mildly elevated troponin T of 21 ng/L present on admission with a second troponin T of 19 ng/L in addition to a negative D-dimer of <0.27 along with a CXR that revealed no evidence of acute abnormality with Leukocytosis of 14.1K present on admission suspected to be due to acute stress response with no obvious signs of infection. She was then admitted to the PCU under observation status for a stay that is expected to be less than 2 midnights. [facility] Medical History Morbid obesity with BMI of 40.0-44.9, adult History of left heart catheterization (LHC) (~09/05/21) Presence of stent in coronary artery (~04/10/16) Abnormal nuclear stress test Dyspnea on exertion Mass of lip Elevated WBC count History of DVT (deep vein thrombosis) History of non-ST elevation myocardial infarction (NSTEMI) Cardiogenic shock Type 2 diabetes mellitus Atherosclerotic heart disease of [place] coronary artery without angina pectoris Essential hypertension Carpal tunnel syndrome Hyperlipemia Hypertension Hypothyroidism History of pneumonia IBS (irritable bowel syndrome) Diabetes Home Medications ?Medication ?Instructions ?Recorded ?Last Taken ?Type blood-glucose sensor (Dexcom G7 #1 ea 01/20/24 Unknown Rx Sensor device) carvedilol 25 mg tablet 25 mg PO BID blood pressure #60 04/15/24 09/06/24 Rx tabs insulin NPH-regular 70-30 U-100 See Rx Instructions subcut 08/17/24 09/06/24 Rx insulin 100 unit/mL subcutaneous .COMPLEX #15 mL pen (Novolin 70-30 FlexPen U-100 Insulin) albuterol sulfate 90 mcg/actuation 2 puff inhalation Q6H PRN 09/07/24 09/06/24 History aerosol inhaler shortness of breath or wheezing levothyroxine 112 mcg tablet 112 mcg PO DAILY 09/07/24 09/05/24 History Allergy/AdvReac Type Severity Reaction Status Date / Time alogliptin Allergy Hives Verified 09/07/24 00:14 dulaglutide (From Trulicity) Allergy Hives Verified 09/07/24 00:14 glipizide Allergy Hives Verified 09/07/24 00:14 metformin Allergy Hives Verified 09/07/24 00:14 Penicillins (PCN) Allergy Hives Verified 09/07/24 00:14 aspirin AdvReac Severe blood Verified 09/07/24 00:14 clots canagliflozin (From Invokana) AdvReac Severe abdominal Verified 09/07/24 00:14 pain Family History Sister Breast cancer Mother Hypertension Heart disease Myocardial infarction, Onset Age: 61 Thyroid disorder Grandmother Arthritis Seizures Father CVA (cerebral vascular accident) Brother Heart disease Myocardial infarction Sister CAD (coronary artery disease) Surgical History Hx of heart bypass surgery History of coronary artery bypass surgery (~11/23/21) History of excision of mass (~07/2020) Presence of coronary angioplasty implant and graft (~04/10/16) History of tubal ligation History of hysterectomy History of tonsillectomy Social History household members: none Smoking Status: Former smoker how long ago did patient quit smokin12/2015 alcohol intake: never substance use type: does not use caffeine: Yes Type: coffee Number of servings: 1 frequency: 1-2 times per week ROS ROS Narrative Review of Systems: Constitutional: Patient denies fever or chills. Eyes: Patient denies changes in vision or discharge from eyes. ENT: Patient denies runny nose, sore throat or ear pain. Resp: Patient denies SOB or cough. CV: Patient admits to chest pain that was Left-sided and nonradiating. GI: Patient denies abdominal pain, nausea, vomiting, diarrhea or constipation. : Patient denies dysuria or hematuria. MSK: Patient denies arthralgias or myalgias. Skin: Patient denies rash, wounds or jaundice. Psych: Patient denies symptoms of uncontrolled depression or anxiety. Neuro: Patient denies headache, paresthesias or focal neurologic deficits. Allergy: Patient denies swelling, tongue swelling or urticaria. Hematology: Patient denies easy bleeding or easy bruisability. Endocrinology: Patient denies polyuria, polydipsia, polyphagia or heat/cold intolerance. 14 point ROS otherwise negative except for positives noted above in HPI. Vital Signs Vital Signs Vital Signs: 09/07/24 00:11 09/07/24 00:14 09/07/24 00:17 Temperature 98.1 F Temperature Source Oral Pulse Rate 67 72 Respiratory Rate 17 21 H Respiratory Effort Short of Breath Blood Pressure 144/63 H Blood Pressure Mean 90 Pulse Ox 93 95 Oxygen Delivery Method Room Air 09/07/24 00:30 09/07/24 00:34 09/07/24 00:37 Temperature Temperature Source Pulse Rate 74 75 66 Respiratory Rate 18 18 20 H Respiratory Effort Blood Pressure 137/75 H Blood Pressure Mean 90 Pulse Ox 95 93 92 Oxygen Delivery Method 09/07/24 00:49 09/07/24 00:49 09/07/24 01:04 Temperature Temperature Source Pulse Rate 75 70 Respiratory Rate 19 H 16 Respiratory Effort Blood Pressure 148/64 H 148/64 H Blood Pressure Mean 85 85 Pulse Ox 94 94 Oxygen Delivery Method Room Air 09/07/24 01:05 09/07/24 01:06 09/07/24 01:10 Temperature Temperature Source Pulse Rate 73 73 69 Respiratory Rate 14 14 Respiratory Effort Blood Pressure 137/65 H 137/65 H 123/53 H Blood Pressure Mean 86 74 Pulse Ox 92 92 Oxygen Delivery Method Room Air 09/07/24 01:15 09/07/24 01:30 09/07/24 01:45 Temperature Temperature Source Pulse Rate 65 73 Respiratory Rate 14 23 H Respiratory Effort Blood Pressure 107/58 L 118/75 112/63 Blood Pressure Mean 73 87 75 Pulse Ox 92 94 89 Oxygen Delivery Method 09/07/24 02:00 09/07/24 02:15 09/07/24 02:59 Temperature Temperature Source Pulse Rate 69 68 Respiratory Rate 15 24 H Respiratory Effort Blood Pressure 150/72 H 152/82 H Blood Pressure Mean 94 103 Pulse Ox 94 94 93 Oxygen Delivery Method 09/07/24 03:00 Temperature Temperature Source Pulse Rate Respiratory Rate 18 Respiratory Effort Blood Pressure Blood Pressure Mean Pulse Ox Oxygen Delivery Method Physical Exam Const alert, oriented x3 and no apparent distress Constitutional Narrative: Morbidly obese. General Appearance: cooperative HEENT normocephalic, head/scalp atraumatic, hearing grossly normal bilaterally and moist oral mucous membranes Eyes PERRL and EOMs intact bilaterally Neck no lymphadenopathy and supple Resp normal respiratory effort, no retractions, no use of accessory muscles and clear to auscultation bilaterally Cardio regular rate and regular rhythm GI normal to inspection, nondistended, normoactive bowel sounds, soft to palpation, non-tender and non-distended Extremity normal to inspection, full ROM and no clubbing, cyanosis or edema Skin Skin Narrative: Patient has no evidence of rash, abscess, wounds or jaundice. Neuro oriented x3, CN's II-XII intact bilaterally, moves all extremities and no focal motor deficits Sensorium / Orientation: awake, alert, oriented to person, oriented to place and oriented to time Speech: speech normal Psych affect normal Results Medical Records Data Attestation: I reviewed the patient's medical records Lab / Micro Data Attestation: I reviewed the patient's lab results. 09/07/24 00:15 09/07/24 00:15 Labs: Laboratory Results - last 24 hr 09/07/24 00:15: WBC 14.1 H, RBC 4.70, Hgb 13.9, Hct 43.2, MCV 91.9, MCH 29.6, MCHC 32.2, RDW Std Deviation 44.1 H, RDW Coeff of Eveline 13.1, Plt Count 272, MPV 11.6, Immature Gran % (Auto) 0.600, Neut % (Auto) 80.9 H, Lymph % (Auto) 11.3 L, [place] % (Auto) 5.1, Eos % (Auto) 1.6, Baso % (Auto) 0.5, Absolute Neuts (auto) 11.4 H, Absolute Lymphs (auto) 1.59, Nucleated RBC % 0, PT 13.5, INR 1.0, APTT 25.3, D-Dimer Quant (PE/DVT) < 0.27 L, Sodium 136, Potassium 4.5, Chloride 98, Carbon Dioxide 26.1, Anion Gap 12, BUN 13, Creatinine 0.86, Est GFR (MDRD) Non-Af 72, BUN/Creatinine Ratio 15.2, Glucose 232 H, Calcium 9.5, Troponin T High Sens 21 H, NT pro BNP II 619 09/07/24 01:54: POC Glucose 210 H 09/07/24 02:15: Troponin T Hi Sens 2 Hr 19 H Imaging Radiology Impression Chest X-Ray 09/07/24 01:00 IMPRESSION: No evidence for acute abnormality. Reading [facility] Assessment & Plan Assessment/Plan (1) Chest pain: QUALIFIERS: Chest pain type: unspecified Qualified Code(s): R07.9 - Chest pain, unspecified (2) Coronary artery disease: QUALIFIERS: Associated angina: with unspecified form of angina Coronary Disease-Associated Artery/Lesion type: unspecified vessel or lesion type [place] vs. transplanted heart: [place] heart Qualified Code(s): I25.119 - Atherosclerotic heart disease of [place] coronary artery with unspecified angina pectoris (3) Presence of stent in coronary artery: (4) History of left heart catheterization (LHC): (5) Morbid obesity with BMI of 40.0-44.9, adult: (6) Leukocytosis: QUALIFIERS: Leukocytosis type: unspecified Qualified Code(s): D72.829 - Elevated white blood cell count, unspecified (7) Hypertension: QUALIFIERS: Hypertension type: unspecified Qualified Code(s): I10 - Essential (primary) hypertension PLAN: Plan 1. Chest Pain; with mildly elevated troponin T of 21 ng/L present on admission with a second troponin T of 19 ng/L in addition to a negative D-dimer of <0.27 along with a CXR that revealed no evidence of acute abnormality - Admit to PCU under observation status. Continue aspirin and prn sublingual NTG. Give acetaminophen prn for [id number] (level 1-5/10) pain or fever. Give morphine IV prn for severe (level 6-10/10) pain. Finally, we will consult [facility] to see this patient on rounds in the AM for further recommendations with help appreciated in advance. 2. CAD; s/p NSTEMI with stents (2015 to LAD/2016 to RCA) and subsequent CABG x 2 (2021) with recent exertional dyspnea attributed to suspected CAD complicating #1 - Noted. 3. Morbid (Class III) Obesity; with BMI of 42 this admission adding to the burden of disease outlined from #1 & #2 - 4. Leukocytosis of 14.1 present on admission with no obvious signs of infection - Check UA C&S. 5. Essential hypertension; on carvedilol - Maintain carvedilol as previous plus give prn IV hydralazine for systolic blood pressure > 160 mmHg. 6. Hypothyroidism; on levothyroxine - Continue levothyroxine and check TSH. 7. Hyperlipidemia; currently not on treatment - Resume statin and check Lipid Profile in light of #1. 8. Former tobacco abuse - Noted. 9. Remote history of DVT attributed to - Noted with no evidence of recurrence at this time. 10. DM-2; of unknown control - Keep NPO for now until [facility] done. FSBS q. 6 hours plus SSI. 11. IBS - Stable. 12. History of CTS - Noted. 13. OA - Give acetaminophen prn as outlined in #1. 14. DVT prophylaxis - Enoxaparin 40 mg sq BID plus SCD's. Total time: Approximately (but not less than) 70 minutes. Charges/Coding Visit Charges OBSV E&M: 04012 Observ/hosp same date L2
--- NOTE | 2024-09-07 03:18 | ED.RN ---
dash,the pt's daughter updated .
--- NOTE | 2024-09-07 03:18 | ED.RN ---
dash,the pt's daughter updated .
--- OUTSIDE RECORDS SUMMARY | 2024-09-07 03:26 | XMS RPT_ITS | CCD ---
Author Organization [facility] CliniSyaz Care Team Providers Care Pasteurizer Helper Name Role Phone VON ABARCA Unavailable Unavailable SAADIA HERNANDEZ Unavailable Unavailable SAADIA HERNANDEZ Unavailable Unavailable Dr. Harish Noel Primary Care Provider Dr. Harish Noel Attending Provider [phone] Dr. Harish Noel Referring Provider Roof ERISA ATTORNEY, ERISA ATTORNEY-C Rustam Garza Attending Provider Roof ERISA ATTORNEY, ERISA ATTORNEY-C Rustam Garza Referring Provider Roof ERISA ATTORNEY, ERISA ATTORNEY-C Rustam aGrza Other Provider [phone]([facility])[phone] Forrest Jewell Attending Provider Dr. Jose Cotton Attending Provider Dr. Forrest Jewell Referring Provider Dr. Forrest Jewell Other Provider [phone]([facility])[phone] Harish Noel Primary Care Provider Dr. Harish Noel Referring Provider 1([facility])[phone] Roof ERISA ATTORNEY, ERISA ATTORNEY-C Rustam Garza Attending Provider HARISH NOEL MD Primary Care Physician BERT DAY, HARISH Primary Care Unavailable ANTWAN HESTER Attending Unavailable POLLY PHILIPPE MD Attending Unavailable BERT DAY, HARISH Primary Care Unavailable ANN CASE, MSIsabelle MARTINEZ Attending Natalie NOEL MD., HAIRSH Primary Care Unavailable ANN CASE, MSIsabelle MARTINEZ [...] Dr. Harish Noel Referring Provider [phone] Roof ERISA ATTORNEY, ERISA ATTORNEY-C Rustam Garza Attending Provider Jairo Vogel Attending Provider Unavailable Dr. Harish Noel Primary Care Provider Aminah Prado Attending Provider Unavailable Dr. Harish Noel Attending Provider [phone] Dr. Harish Noel Referring Provider [phone] Roof ERISA ATTORNEY, ERISA ATTORNEY-C Rustam Garza Attending Provider Jairo Vogel Attending Provider Unavailable Dr. Harish Noel Primary Care Provider Dr. Harish Noel Referring Provider [phone] Roof ERISA ATTORNEY, ERISA ATTORNEY-C Rustam Garza Attending Provider Dr. Harish Noel [...] Attending Unavailable Bert, Harish Primary Care Unavailable Bret, Harish Referring Unavailable Bert, Harish Attending Unavailable Bert, Harish Primary Care Unavailable Ravi Lamb Attending Unavailable Bert, Harish Primary Care Unavailable de Polly Herr Consulting Unavailable Polly Lomeli Admitting Unavailable Nathan Torres Attending Unavailable Bella, Sly Referring Unavailable Bert, Harish Primary Care Unavailable Schwignacia, Nathan Attending Unavailable Bert, Harish Primary Care Unavailable de Polly Herr Referring Unavailable Delgado Crzu Attending Unavailabl e Bella, Sly Referring Unavailable [...] [alogliptin] Drug Allergy 06-17-19 22 Weal (disorder) [facility] (15 sources) Aspirin; Translations: [aspirin] Drug Allergy 06-17-19 22 blood clots [facility] [place] (11 sources) canagliflozin Drug Allergy 06-17-19 [address] [facility] (11 sources) dulaglutide Drug Allergy 06-17-19 22 [facility] (15 sources) glipiZIDE; Translations: [glipizide] Drug Allergy 06-17-19 22 [facility] (14 sources) levothyroxine; Translations: [levothyroxine] Drug Allergy 06-17-19 Eruption of skin (disorder), Diarrhea (finding) [facility] (15 sources) metFORMIN; Translations: [metformin] Drug Allergy 06-17-19 Hives, Diarrhea [facility] (12 sources) Penicillins; Translations: [Penicillins] Allergy to substance 06-17-[address] [facility] (4 sources) canagliflozin; Translations: [canagliflozin] Drug Allergy Stomach Pains, Diarrhea [facility] (4 sources) dulaglutide; Translations: [dulaglutide] Drug Allergy [facility] (4 sources) HMG-CoA reductase inhibitor; Translations: [statins] Drug allergy [facility] (4 sources) Penicillin; Translations: [penicillins] Drug Allergy [facility] (1 source) alogliptin Drug Allergy 07-03-[address] [facility] (1 source) Aspirin Drug Allergy 07-03-[address] [facility] (1 source) canagliflozin Drug Allergy 07-03-[address] [facility] (1 source) dulaglutide Drug Allergy 07-03-[address] [facility] (1 source) glipiZIDE Drug Allergy 07-03-[address] [facility] (1 source) metFORMIN Drug Allergy 07-03-[address] [facility] Medications Current Medications Medication Drug [...] 15 mL, 3 Refill(s), [facility]: [facility], 157.2, cm, 01/21/20 14:13:00 EST, Height, [...] # 25 tab(s), 3 Refill(s), Pharmacy: [facility] [address], 157.5, cm, 08/31/19 16:27:00 EDT, Height, [...] 0 Refill(s) Start Date: 11/29/21 Status: Ordered [id number] 200 actuat albuterol 0.09 mg/actuat metered dose [...] 2020 1:00am May 11, 2020 12:16pm thyroid (fpc) 60 mg oral tablet (18 sources) Start: 06-16-2021 End: 05-16-2022 take 1 tablet by mouth once daily Thyroid (Pork) ([place] Thyroid) 60 mg tablet Discontinued 60 mg [...] source) I25.10 - 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,R07.9 - Chest [...] 07-16-2024 Anion gap [Moles/Vol] 11 mmol/L 5- [facility] BUN/creatinine ratioOrdered By: Harish Noel on 07-16-2024 Urea nitrogen/Creatinine [Mass ratio] 18.8 mg/mg - [facility] Bilirubin, totalOrdered By: Harish Noel on 07-16-2024 Bilirubin [Mass/Vol] 0.73 mg/dL 0.00-1.30 [facility] Carbon dioxide, total [Moles /volume] in Central venous bloodOrdered By: Harish Noel on 07-16-2024 CO2 [Moles/Vol] 26.7 mmol/L 21.0-32.[address] [facility] Chloride assayOrdered By: Madison Noel on 07-16-2024 Chloride [Moles/Vol] 97 mmol/L Low 98-108 [facility] Comprehensive Metabolic Prof ilon 07-16-2024 Albumin [Mass/Vol] 3.8 g/dL Normal 3.4-4.8 [facility] Comment on above: Performed By: #### L 501.9985, L501.91974, L500.4050, L501.9520, L503.0106, L501.5200, L506.1001, L506.0400 ####[facility] [address] [place], [address] Albumin/Globulin [Mass ratio] 1.2 {ratio} Normal 0.9-2.[address] [facility] Comment on above: Performed By: #### L 501.9985, L501.53572, L500.4050, L501.9520, L503.0106, L501.5200, L506.1001, L506.0400 ####[facility] [address] [place], [address] ALK PHOS 94 U/L Normal 35-[address] [facility] Comment on above: Performed By: #### L 501.9985, L501.43863, L500.4050, L501.9520, L503.0106, L501.5200, L506.1001, L506.0400 ####[facility] [address] [place], [address] ALT [Catalytic activity/Vol] 12 U/L Normal <=[address] [facility] Comment on above: Performed By: #### L 501.9985, L501.21774, L500.4050, L501.9520, L503.0106, L501.5200, L506.1001, L506.0400 ####[facility] [address] [place], [address] AST [Catalytic activity/Vol] 16 U/L Normal <=[address] [facility] Comment on above: Performed By: #### L 501.9985, L501.36892, L500.4050, L501.9520, L503.0106, L501.5200, L506.1001, L506.0400 ####[facility] [address] [place], [address] Bilirubin [Mass/Vol] 0.73 mg/dL Normal 0.00-1.30 [facility] Comment on above: Performed By: #### L 501.9985, L501.96828, L500.4050, L501.9520, L503.0106, L501.5200, L506.1001, L506.0400 ####[facility] [address] [place], [address] BUN/CRE 18.8 RATIO Normal 10-[address] [facility] Comment on above: Performed By: #### L 501.9985, L501.16181, L500.4050, L501.9520, L503.0106, L501.5200, L506.1001, L506.0400 ####[facility] [address] [place], [address] Calcium [Mass/Vol] 9.1 mg/dL Normal 7.6-11.0 [facility] Comment on above: Performed By: #### L 501.9985, L501.03431, L500.4050, L501.9520, L503.0106, L501.5200, L506.1001, L506.0400 ####[facility] [address] [place], [address] Chloride [Moles/Vol] 97 mmol/L Low 98-108 [facility] Comment on above: Performed By: #### L 501.9985, L501.10493, L500.4050, L501.9520, L503.0106, L501.5200, L506.1001, L506.0400 ####[facility] [address] [place], [address] CO2 [Moles/Vol] 26.7 mmol/L Normal 21.0-32.[address] [facility] Comment on above: Performed By: #### L 501.9985, L501.17531, L500.4050, L501.9520, L503.0106, L501.5200, L506.1001, L506.0400 ####[facility] [address] [place], [address] Creatinine [Mass/Vol] 0.84 mg/dL Normal 0.70-1.20 [facility] Comment on above: Performed By: #### L 501.9985, L501.25120, L500.4050, L501.9520, L503.0106, L501.5200, L506.1001, L506.0400 ####[facility] [address] [place], [address] GAP 11 Normal 5-[address] [facility] Comment on above: Performed By: #### L 501.9985, L501.61714, L500.4050, L501.9520, L503.0106, L501.5200, L506.1001, L506.0400 ####[facility] [address], [address] GFR/1.73 sq M.predicted among non-blacks MDRD (S/P/Bld) [Vol rate/Area] 74 mL/min/{1.73_m2} Normal >[address] [facility] Comment on above: Result Comment: mL/m in/1.73m2 CKD-EPI Creatinine Equation (2020) Performed By: #### L 501.9985, L501.70983, L500.4050, L501.9520, L503.0106, L501.5200, L506.1001, L506.0400 ####[facility] [address] [place], [address] Globulin (S) [Mass/Vol] 3.3 g/dL Normal 2.2-4.[address] [facility] Comment on above: Performed By: #### L 501.9985, L501.70110, L500.4050, L501.9520, L503.0106, L501.5200, L506.1001, L506.0400 ####[facility] [address] [place], [address] Glucose [Mass/Vol] 253 mg/dL High 70-99 [facility] Comment on above: Performed By: #### L 501.9985, L501.27798, L500.4050, L501.9520, L503.0106, L501.5200, L506.1001, L506.0400 ####[facility] [address] [place], [address] Potassium [Moles/Vol] 4.5 mmol/L Normal 3.3-5.1 [facility] Comment on above: Performed By: #### L 501.9985, L501.90413, L500.4050, L501.9520, L503.0106, L501.5200, L506.1001, L506.0400 ####[facility] [address] [place], [address] Sodium [Moles/Vol] 134 mmol/L Normal 133-145 [facility] Comment on above: Performed By: #### L 501.9985, L501.05859, L500.4050, L501.9520, L503.0106, L501.5200, L506.1001, L506.0400 ####[facility] [address] [place], [address] T PROT 7.1 g/dL Normal 5.9-8.[address] [facility] Comment on above: Performed By: #### L 501.9985, L501.42903, L500.4050, L501.9520, L503.0106, L501.5200, L506.1001, L506.0400 ####[facility] [address] [place], [place], [id number] Urea nitrogen [Mass/Vol] 16 mg/dL Normal 4-[address] [facility] Comment on above: Performed By: #### L 501.9985, L501.44449, L500.4050, L501.9520, L503.0106, L501.5200, L506.1001, L506.0400 ####[facility] [address] [place], [address] Free T3on 07-16-2024 Free T3 [Mass/Vol] 2.8 pg/mL Normal 2.18-3.98 [facility] Comment on above: Performed By: #### L 501.9985, L501.97095, L500.4050, L501.9520, L503.0106, L501.5200, L506.1001, L506.0400 ####[facility] [address] [place], [place], [id number] Free V9Orqystd By: Harish garza on 07-16-2024 Free Triiodothyronine (T3) pg/dL 2.8 pg/mL 2.18-3.[address] [facility] GFR/1.73 sq M.predicted domenico g non-blacks MDRD (S/P/Bld) [Vol rate/Area]Ordered By: Harish Noel on 07-16-2024 Estimated GFR (MDRD) Non-Af Amer 74 >[address] [facility] Comment on above: mL/min/1.73m2 CKD-EP I Creatinine Equation (2020) Hemoglobin A1con 07-16-2024 HbA1c (Bld) [Mass fraction] 9.6 % High <=5.[address] [facility] Comment on above: Result Comment: Norm al < 5.7 % Prediabetic 5.7 - 6.4 % Diabetic >or= 6.5 % Please note range changes. Performed By: #### L 501.9985, L501.28663, L500.4050, L501.9520, L503.0106, L501.5200, L506.1001, L506.0400 #### [facility] Laboratory [address] [place], [place], [address] Hemoglobin A1c percentageOrd ered By: Harish Noel on 07-16-2024 HbA1c (Bld) [Mass fraction] 9.6 % High <5.[address] [facility] Comment on above: Normal < 5.7 % Predi abetic 5.7 - 6.4 % Diabetic >or= 6.5 % Please note range changes. Laboratory - Chemistry and C hemistry - challengeOrdered By: Harish Noel on 07-16-2024 AST [Catalytic activity/Vol] 16 U/L <[address] [facility] Magnesiumon 07-16-2024 Magnesium [Mass/Vol] 2.0 mg/dL Normal 1.5-2.2 [facility] Comment on above: Performed By: #### L 501.9985, L501.03224, L500.4050, L501.9520, L503.0106, L501.5200, L506.1001, L506.0400 ####[facility] [address] [place], [place], [address] Magnesium (Unsp spec) [Mass/ Vol]Ordered By: Harish Noel on 07-16-2024 Magnesium [Mass/Vol] 2.0 mg/dL 1.5-2.2 [facility] Potassium (Unsp spec) [Mass/ Vol]Ordered By: Harish Noel on 07-16-2024 Potassium [Moles/Vol] 4.5 mmol/L 3.3-5.1 [facility] Serum creatinine measurement (mass/volume)Ordered By: Harish Noel on 07-16-2024 Creatinine [Mass/Vol] 0.84 mg/dL 0.70-1.20 [facility] Serum globulin measurementOr dered By: Harish Noel on 07-16-2024 Globulin (S) [Mass/Vol] 3.3 g/dL 2.2-4.[address] [facility] Serum glucose measurement (m ass/volume)Ordered By: Harish Noel on 07-16-2024 Glucose [Mass/Vol] 253 mg/dL High 70-99 [facility] Serum or plasma alanine nova otransferase (ALT) measurementOrdered By: Harish Noel on 07-16-2024 ALT [Catalytic activity/Vol] 12 U/L <[address] [facility] Serum or plasma albumin betsy urement (mass/volume)Ordered By: Harish Noel on 07-16-2024 Albumin [Mass/Vol] 3.8 g/dL 3.4-4.8 [facility] Serum or plasma albumin/glob ulin mass ratioOrdered By: Harish Noel on 07-16-2024 Albumin/Globulin [Mass ratio] 1.2 {ratio} 0.9-2.[address] [facility] Serum or plasma alkaline maritza sphatase measurementOrdered By: Harish Noel on 07-16-2024 ALP [Catalytic activity/Vol] 94 U/L 35-[address] [facility] Serum or plasma calcium betsy urement (mass/volume)Ordered By: Harish Noel on 07-16-2024 Calcium [Mass/Vol] 9.1 mg/dL 7.6-11.0 [facility] Serum or plasma urea nitroge n measurement (mass/volume)Ordered By: Harish Noel on 07-16-2024 Urea nitrogen [Mass/Vol] 16 mg/dL 4-[address] [facility] Sodium levelOrdered By: Ida Noel on 07-16-2024 Sodium [Moles/Vol] 134 mmol/L 133-145 [facility] T4 Free Directon 07-16-2024 T4 FREE DIRECT 0.90 ng/dL Normal 0.76-1.[address] [facility] Comment on above: Performed By: #### L 501.9927, L501.17825, L500.4050, L501.9520, L503.0106, L501.5200, L506.1001, L506.0400 ####[facility] [address] [place], [address] T4 freeOrdered By: Harish garza on 07-16-2024 Free T4 [Mass/Vol] 0.90 ng/dL 0.76-1.46 [facility] TSH DL <= 0.005 mIU/L QnOrde red By: Harish Noel on 07-16-2024 Thyroid Stimulating Hormone (TSH) 8.170 uIU/mL High 0.300-4.[address] [facility] Thyroid Stim Hormone (TSH)on 07-16-2024 TSH 8.170 uIU/mL High 0.300-4.[address] [facility] Comment on above: Performed By: #### L 501.9985, L501.53027, L500.4050, L501.9520, L503.0106, L501.5200, L506.1001, L506.0400 ####[facility] [address] [place], [place], [id number] Total proteinOrdered By: Sharon Noel on 07-16-2024 Protein [Mass/Vol] 7.1 g/dL 5.9-8.4 [facility] Vitamin B12on 07-16-2024 Cobalamin (Vitamin B12) [Mass/Vol] 193 pg/mL Normal 180-[address] [facility] Comment on above: Performed By: #### L 501.9985, L501.93346, L500.4050, L501.9520, L503.0106, L501.5200, L506.1001, L506.0400 ####[facility] [address] [place], [place], [address] Vitamin B12 ser/plasOrdered By: Harish Noel on 07-16-2024 Cobalamin (Vitamin B12) [Mass/Vol] 193 pg/mL 180-[address] [facility] Vitamin D, 25-hydroxyOrdered By: Harish Noel on 07-16-2024 Vitamin D 25-Hydroxy 12.9 ng/mL Low 30-100 [facility] Comment on above: Vitamin D StatusDefi ciency: <20 ng/mL (50nmol/L)Insufficiency: 20-30 ng/mL (50-75 nmol/L)Sufficiency: 30-100 ng/mL (75-250 nmol/L)Toxicity: >100 ng/mL (>250 nmol/L) Vitamin D,25 Hydroxyon 07-16 Vitamin D 25-OH 12.9 ng/mL Low 30-[address] [facility] Comment on above: Result Comment: Lucy min D Status Deficiency: <20 ng/mL (50nmol/L) Insufficiency: 20-30 ng/mL (50-75 nmol/L) Sufficiency: 30-100 ng/mL (75-250 nmol/L) Toxicity: >100 ng/mL (>250 nmol/L) Performed By: #### L 501.9985, L501.36678, L500.4050, L501.9520, L503.0106, L501.5200, L506.1001, L506.0400 ####[facility] [address] [place], [address] MR/BMSLIBORIOBon 07-02-2024 MR/BMS.Supriya [facility] [address] [place] [address] OFFICE VISIT Date of Service: 07/02/24 MR#: [id number] Acct: [id number] Name: FELICITAS ALCANTARA Rep #: [id number] : 1950 Provider: Dr. Harish jose MD Age/Sex: 73/F Location: 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 She is intolerant to 5 major classes [...] content not included)... Normal [facility] 12 Lead EKGon 04-30-2024 12 Lead EKG [facility] Services [address] [place] [address] 12 Lead EKG 04/29/24 2258 MR#: [id number] Acct: [id number] Name: FELICITAS ALCANTARA Rep #: [id number] : 1950 73 From: Delgado Cruz MD Attending Dr: Dr. Nathan Torres, DO Status: DIS RUBINA Ordering Dr: Polly Lomeli DO Date: 04/30/24 Location: [facility] Sex: F C Admitted: 04/29/24 Test [...] IS UNCONFIRMED Confirmed by ANTHONY MCARTHUR, ADELA ([id number]), newspaper or periodical editor ALLA LAINEZ ([id number]) on 05/01/2024 1:04:57 PM Referred By: Sly Blanco Confirmed By: ADELA CRUZ MD 05/01/24 1304 Date Deglado Cruz MD CC: Dr. Polly Lomeli DO; Dr. Nathan Torres DO; Dr. Harish Noel MD; Dr. Sly Blanco DO Signed Normal [facility] Absolute neutrophil countOrd ered By: Polly Herr on 04-30-2024 Neutrophils (Bld) [#/Vol] 16.1 10*3/uL High 2.0-7.[address] [facility] Albumin to globulin ratioOrd ered By: Polly Herr on 04-30-2024 Albumin/Globulin [Mass ratio] 0.8 {ratio} Low 0.9-2.[address] [facility] Automated blood erythrocyte countOrdered By: Polly Herr on 04-30-2024 RBC (Bld) [#/Vol] 5.60 10*6/uL High 4.2-5.4 [facility] Comment on above: Performed By: #### L 501.5200, L501.2300, L500.4050, L100.0100 ####[facility] [address] [place], [place], [address] Automated blood hematocrit ( percentage)Ordered By: Polly Herr on 04-30-2024 Hematocrit (Bld) [Volume fraction] 49.8 % High 37-[address] [facility] Comment on above: Performed By: #### L 501.5200, L501.2300, L500.4050, L100.0100 ####[facility] [address] [place], [address] Automated lymphocyte count a s percentage of total leukocytesOrdered By: Polly Herr on 04-30-2024 Lymphocytes/100 WBC (Bld) 7.1 % Low 19-[address] [facility] Comment on above: Performed By: #### L 501.5200, L501.2300, L500.4050, L100.0100 ####[facility] [address] [place], [address] Basophil percentageOrdered B y: Polly Herr on 04-30-2024 Basophils/100 WBC (Bld) 0.6 % Normal 0-[address] [facility] Comment on above: Performed By: #### L 501.5200, L501.2300, L500.4050, L100.0100 ####[facility] [address] [place], [address] Bedside Glucoseon 04-30-2024 FINGERSTICK GLU 307 mg/dL High 74-[address] [facility] Comment on above: Result Comment: RIMMA GEMENT OF PATIENT CARE PER NURSING PROTOCOL Performed By: #### L 100.0100, L500.2500, L300.8000, L501.4020 #### [facility] [address] [place], [address] FINGERSTICK GLU 399 mg/dL High 74-[address] [facility] Comment on above: Result Comment: RIMMA GEMENT OF PATIENT CARE PER NURSING PROTOCOL Performed By: #### L 501.080 ####[facility] [address] [place], [address] FINGERSTICK GLU 404 mg/dL High 74-[address] [facility] Comment on above: Result Comment: RIMMA GEMENT OF PATIENT CARE PER NURSING PROTOCOL Performed By: #### L 100.0100, L500.2500, L300.8000, L501.4020 #### [facility] [address] [place], [address] FINGERSTICK GLU 365 mg/dL High 74-[address] [facility] Comment on above: Result Comment: RIMMA GEMENT OF PATIENT CARE PER NURSING PROTOCOL Performed By: #### L 100.0100, L500.2500, L300.8000, L501.4020 #### [facility] [address] [place], [address] FINGERSTICK GLU 245 mg/dL High 74-[address] [facility] Comment on above: Result Comment: RIMMA GEMENT OF PATIENT CARE PER NURSING PROTOCOL Performed By: #### L 100.0100, L500.2500, L300.8000, L501.4020 #### [facility] [address] [place], [address] Bilirubin, totalOrdered By: Polly Herr on 04-30-2024 Bilirubin [Mass/Vol] 1.10 mg/dL High 0.20-1.00 [facility] Comment on above: For patients on eltr ombopag therapy, use of Dimension [place] TBIL is not recommended. Blood urea nitrogen (BUN)/cr eatinine ratioOrdered By: Polly Herr on 04-30-2024 Urea nitrogen/Creatinine [Mass ratio] 17.6 mg/mg 10-[address] [facility] CBC W/Diff, Automatedon 04-18 Absolute Lymph 1.26 X10 3/uL Normal 0.83-4.[address] [facility] Comment on above: Performed By: #### L 501.5200, L501.2300, L500.4050, L100.0100 ####[facility] [address] [place], [address] Absolute Neut 16.1 X10 3/uL High 2.0-7.[address] [facility] Comment on above: Performed By: #### L 501.5200, L501.2300, L500.4050, L100.0100 ####[facility] [address] [place], [address] IG% 1.200 High 0.0-0.[address] [facility] Comment on above: Result Comment: IG% - Immature Granulocytes (promyelocytes, myelocytes and metamyelocytes) > 1% indicates that a LEFT SHIFT is Present. Performed By: #### L 501.5200, L501.2300, L500.4050, L100.0100 ####[facility] [address] [place], [address] Nucleated RBC (Bld) [#/Vol] 0 10*3/uL Normal 0-[address] [facility] Comment on above: Performed By: #### L 501.5200, L501.2300, L500.4050, L100.0100 ####[facility] [address] [place], [address] RDW SD 43.2 fl Normal 35.1-43.[address] [facility] Comment on above: Performed By: #### L 501.5200, L501.2300, L500.4050, L100.0100 ####[facility] [address] [place], [address] Carbon dioxide measurementOr dered By: Polly Herr on 04-30-2024 CO2 [Moles/Vol] 25.0 mmol/L 21.0-32.[address] [facility] Chloride measurementOrdered By: Polly Herr on 04-30-2024 Chloride [Moles/Vol] 100 mmol/L 98-107 [facility] Comprehensive Metabolic Prof ilon 04-30-2024 Albumin [Mass/Vol] 3.8 g/dL Normal 3.2-5.0 [facility] Comment on above: Performed By: #### L 501.5200, L501.2300, L500.4050, L100.0100 ####[facility] [address] [place], [address] Albumin/Globulin [Mass ratio] 0.8 {ratio} Low 0.9-2.[address] [facility] Comment on above: Performed By: #### L 501.5200, L501.2300, L500.4050, L100.0100 ####[facility] [address] [place], [address] ALK P 116 U/L Normal 45-[address] [facility] Comment on above: Performed By: #### L 501.5200, L501.2300, L500.4050, L100.0100 ####[facility] [address] [place], [address] ALT [Catalytic activity/Vol] 19 U/L Normal 13-[address] [facility] Comment on above: Performed By: #### L 501.5200, L501.2300, L500.4050, L100.0100 ####[facility] [address] [place], [address] AST [Catalytic activity/Vol] 15 U/L Normal 15-[address] [facility] Comment on above: Performed By: #### L 501.5200, L501.2300, L500.4050, L100.0100 ####[facility] [address] [place], [address] Bilirubin [Mass/Vol] 1.10 mg/dL High 0.20-1.00 [facility] Comment on above: Result Comment: For patients on eltrombopag therapy, use of Dimension [place] TBIL is not recommended. Performed By: #### L 501.5200, L501.2300, L500.4050, L100.0100 ####[facility] [address] [place], [address] BUN/CRE 17.6 RATIO Normal 10-[address] [facility] Comment on above: Performed By: #### L 501.5200, L501.2300, L500.4050, L100.0100 ####[facility] [address] [place], [address] CA,Total 10.4 mg/dL High 8.5-10.[address] [facility] Comment on above: Performed By: #### L 501.5200, L501.2300, L500.4050, L100.0100 ####[facility] [address] [place], [address] Chloride [Moles/Vol] 100 mmol/L Normal 98-107 [facility] Comment on above: Performed By: #### L 501.5200, L501.2300, L500.4050, L100.0100 ####[facility] [address] [place], [address] CO2 [Moles/Vol] 25.0 mmol/L Normal 21.0-32.[address] [facility] Comment on above: Performed By: #### L 501.5200, L501.2300, L500.4050, L100.0100 ####[facility] [address] [place], [address] Creatinine [Mass/Vol] 1.08 mg/dL High 0.55-1.02 [facility] Comment on above: Result Comment: The validity of the calculated GFR GFRAA in patients over 70 years has not been determined. Clinical correlation is essential. Performed By: #### L 501.5200, L501.2300, L500.4050, L100.0100 ####[facility] [address] [place], [address] ECRCL 52.31 ml/min Normal [facility] Comment on above: Performed By: #### L 501.5200, L501.2300, L500.4050, L100.0100 ####[facility] [address] [place], [address] EST GFR - AA 64 mL/min Normal >[address] [facility] Comment on above: Result Comment: Afri can Guinean GFR Calc Performed By: #### L 501.5200, L501.2300, L500.4050, L100.0100 ####[facility] [address] [place], [address] GAP 13 Normal 5-[address] [facility] Comment on above: Performed By: #### L 501.5200, L501.2300, L500.4050, L100.0100 ####[facility] [address] [place], [address] GFR/1.73 sq M.predicted among non-blacks MDRD (S/P/Bld) [Vol rate/Area] 53 mL/min/{1.73_m2} Low >[address] [facility] Comment on above: Result Comment: Non- GFR Calc Performed By: #### L 501.5200, L501.2300, L500.4050, L100.0100 ####[facility] [address] [place], [address] Globulin (S) [Mass/Vol] 4.6 g/dL High 2.2-4.2 [facility] Comment on above: Performed By: #### L 501.5200, L501.2300, L500.4050, L100.0100 ####[facility] [address] [place], [address] Glucose [Mass/Vol] 352 mg/dL High 74-106 [facility] Comment on above: Result Comment: Gluc ose result greater than or equal to 200 mg/dL suggests DIABETES MELLITUS per A.D.A. criteria. Performed By: #### L 501.5200, L501.2300, L500.4050, L100.0100 ####[facility] [address] [place], [address] Potassium [Moles/Vol] 4.4 mmol/L Normal 3.5-5.1 [facility] Comment on above: Performed By: #### L 501.5200, L501.2300, L500.4050, L100.0100 ####[facility] [address] [place], [address] Sodium [Moles/Vol] 137 mmol/L Normal 136-145 [facility] Comment on above: Performed By: #### L 501.5200, L501.2300, L500.4050, L100.0100 ####[facility] [address] [place], [address] T PROT 8.4 g/dL High 6.4-8.[address] [facility] Comment on above: Performed By: #### L 501.5200, L501.2300, L500.4050, L100.0100 ####[facility] [address] [place], [address] Urea nitrogen [Mass/Vol] 19 mg/dL High 7-[address] [facility] Comment on above: Performed By: #### L 501.5200, L501.2300, L500.4050, L100.0100 ####[facility] [address] [place], [address] Eosinophil percentageOrdered By: Polly Herr on 04-30-2024 Eosinophils/100 WBC (Bld) 0.0 % Normal 0-[address] [facility] Comment on above: Performed By: #### L 501.5200, L501.2300, L500.4050, L100.0100 ####[facility] [address] [place], [address] Erythrocyte distribution wid th (RBC) [Ratio]Ordered By: Polly Herr on 04-30-2024 Erythrocyte distribution width (RBC) [Entitic vol] 43.2 fL 35.1-43.[address] [facility] Erythrocyte distribution wid th ratioOrdered By: Polly Herr on 04-30-2024 Erythrocyte distribution width (RBC) [Ratio] 13.3 % Normal 11.6-14.[address] [facility] Comment on above: Performed By: #### L 501.5200, L501.2300, L500.4050, L100.0100 ####[facility] [address] [place], [place], [id number] Estimated glomerular filtrat ion rate (GFR) AmericanOrdered By: Polly Herr on 04-30-2024 Estimated GFR (MDRD) Amer 64 mL/min >[address] [facility] Comment on above: GFR Calc Estimation of creatinine keo aranceOrdered By: Polly Herr on 04-30-2024 Estimated Creatinine Clearance Calc 52.31 ml/min [facility] Glomerular filtration rate ( GFR) estimationOrdered By: Polly Herr on 04-30-2024 Estimated GFR (MDRD) Non-Af Amer 53 mL/min Low >[address] [facility] Comment on above: Non- GFR Calc Glucose measurementOrdered B y: Polly Herr on 04-30-2024 Glucose [Mass/Vol] 352 mg/dL [address] [facility] Comment on above: Glucose result great er than or equal to 200 mg/dLsuggests DIABETES MELLITUS per A.D.A. criteria. [facility] deOrdered By: Nathan Torres on 04-30-2024 Bedside Glucose (Misc Panel) 307 mg/dL [address] Comment on above: MANAGEMENT OF PATIEN T CARE PER NURSING PROTOCOL Hemoglobin measurementOrdere d By: Polly Herr on 04-30-2024 Hemoglobin (Bld) [Mass/Vol] 16.3 g/dL [facility] 12.0-15.[address] [facility] Comment on above: Performed By: #### L 501.5200, L501.2300, L500.4050, L100.0100 ####[facility] [address] [place], [place], [id number] Immature granulocytes/100 WB C Auto (Bld)Ordered By: Polly Herr on 04-30-2024 Immature granulocytes/100 WBC (Bld) 1.200 % High 0.0-0.[address] [facility] Comment on above: IG% - Immature Granu locytes (promyelocytes, myelocytes and metamyelocytes) > 1% indicates that a LEFT SHIFT is Present. Laboratory - Chemistry and C hemistry - challengeOrdered By: Polly Herr on 04-30-2024 AST [Catalytic activity/Vol] 15 U/L 15-[address] [facility] Lymphocytes Auto (Unsp spec) [#/Vol]Ordered By: Polly Herr on 04-30-2024 Lymphocytes (Bld) [#/Vol] 1.26 10*3/uL 0.83-4.[address] [facility] MCV (mean corpuscular volume ) determinationOrdered By: Polly Herr on 04-30-2024 MCV (RBC) [Entitic vol] 88.9 fL Normal 81-[address] [facility] Comment on above: Performed By: #### L 501.5200, L501.2300, L500.4050, L100.0100 ####[facility] [address] [place], [address] Magnesiumon 04-30-2024 Magnesium [Mass/Vol] 2.1 mg/dL Normal 1.6-2.6 [facility] Comment on above: Performed By: #### L 501.5200, L501.2300, L500.4050, L100.0100 ####[facility] [address] [place], [address] Magnesium measurementOrdered By: Polly Herr on 04-30-2024 Magnesium [Mass/Vol] 2.1 mg/dL 1.6-2.6 [facility] Mean corpuscular hemoglobin (MCH) determinationOrdered By: Polly Herr on 04-30-2024 MCH (RBC) [Entitic mass] 29.1 pg Normal 27.0-32.[address] [facility] Comment on above: Performed By: #### L 501.5200, L501.2300, L500.4050, L100.0100 ####[facility] [address] [place], [address] Mean corpuscular hemoglobin concentration (MCHC) determinationOrdered By: Polly Herr on 04-30-2024 MCHC (RBC) [Mass/Vol] 32.7 g/dL Normal 32-36 [facility] Comment on above: Performed By: #### L 501.5200, L501.2300, L500.4050, L100.0100 ####[facility] [address] [place], [address] Mean platelet volume determi nationOrdered By: Polly Herr on 04-30-2024 Platelet mean volume (Bld) [Entitic vol] 10.6 fL Normal 6.2-12.[address] [facility] Comment on above: Performed By: #### L 501.5200, L501.2300, L500.4050, L100.0100 ####[facility] [address] [place], [address] Monocyte percentageOrdered B y: Polly Herr on 04-30-2024 Monocytes/100 WBC (Bld) 0.5 % Normal 0-[address] [facility] Comment on above: Performed By: #### L 501.5200, L501.2300, L500.4050, L100.0100 ####[facility] [address] [place], [address] Neutrophil percentageOrdered By: Polly Herr on 04-30-2024 Neutrophils/100 WBC (Bld) 90.6 % High 47-[address] [facility] Comment on above: Performed By: #### L 501.5200, L501.2300, L500.4050, L100.0100 ####[facility] [address] [place], [address] Nucleated red blood cell per centageOrdered By: Polly Herr on 04-30-2024 Nucleated RBC/100 WBC (Bld) [Ratio] 0 % 0-[address] [facility] Phosphoruson 04-30-2024 Phosphate [Mass/Vol] 3.7 mg/dL Normal 2.5-4.9 [facility] Comment on above: Performed By: #### L 501.5200, L501.2300, L500.4050, L100.0100 ####[facility] [address] [place], [address] Phosphorus measurementOrdere d By: Polly Herr on 04-30-2024 Phosphorus Level 3.7 mg/dL 2.5-4.[address] [facility] Platelet countOrdered By: Mane Herr on 04-30-2024 Platelets (Bld) [#/Vol] 328 10*3/uL Normal 150-[address] [facility] Comment on above: Performed By: #### L 501.5200, L501.2300, L500.4050, L100.0100 ####[facility] [address] [place], [address] Potassium measurementOrdered By: Polly Herr on 04-30-2024 Potassium [Moles/Vol] 4.4 mmol/L 3.5-5.1 [facility] Serum anion gap measurementO rdered By: Polly Herr on 04-30-2024 Anion gap [Moles/Vol] 13 mmol/L 5-15 [facility] Serum globulin measurementOr dered By: Polly Herr on 04-30-2024 Globulin (S) [Mass/Vol] 4.6 g/dL High 2.2-4.[address] [facility] Serum or plasma alanine nova otransferase (ALT) measurementOrdered By: Polly Herr on 04-30-2024 ALT [Catalytic activity/Vol] 19 U/L 13-[address] [facility] Serum or plasma albumin betsy urement (mass/volume)Ordered By: Polly Herr on 04-30-2024 Albumin [Mass/Vol] 3.8 g/dL 3.2-5.0 [facility] Serum or plasma alkaline maritza sphatase measurementOrdered By: Polly Herr on 04-30-2024 ALP [Catalytic activity/Vol] 116 U/L 45-[address] [facility] Serum or plasma calcium betsy urement (mass/volume)Ordered By: Polly Herr on 04-30-2024 Calcium [Mass/Vol] 10.4 mg/dL High 8.5-10.1 [facility] Serum or plasma creatinine m easurement (mass/volume)Ordered By: Polly Herr on 04-30-2024 Creatinine [Mass/Vol] 1.08 mg/dL High 0.55-1.02 [facility] Comment on above: The validity of the calculated GFR & GFRAA in patients over 70 years has not been determined. Clinical correlation is essential. Serum or plasma urea nitroge n measurement (mass/volume)Ordered By: Polly Herr on 04-30-2024 Urea nitrogen [Mass/Vol] 19 mg/dL High 7-[address] [facility] Sodium levelOrdered By: Neto Herr on 04-30-2024 Sodium [Moles/Vol] 137 mmol/L 136-145 [facility] Stress Reporton 04-30-2024 Stress Report [facility] Cardi[facility] Services [address] [place] [address] MR#: [id number] Acct: [id number] Name: FELICITAS ALCANTARA Rep #: [id number] : 1950 73 From: Delgado Cruz MD [...] than 70%. This note was generated with [facility] software. It may contain incorrect words, spelling, and punctuation that were not noted in checking the note before signing. 04/30/24 1151 Date Delgado Cruz MD CC: Dr. Polly Lomeli DO; Dr. Nathan Torres DO; Dr. Harish Noel MD; Dr. Sly Blanco DO Date Dictated: 04/30/24 1146 Date Transcribed: 04/30/24 1146 [employer] Garage Attendant: NN Signed Normal [facility] Total proteinOrdered By: Frank Herr on 04-30-2024 Protein [Mass/Vol] 8.4 g/dL High 6.4-8.2 [facility] White blood cell (WBC) count Ordered By: Polly Herr on 04-30-2024 WBC (Bld) [#/Vol] 17.7 10*3/uL High 4.4-11.0 [facility] Comment on above: Performed By: #### L 501.5200, L501.2300, L500.4050, L100.0100 ####[facility] [address] [place], [address] 12 Lead EKGon 04-29-2024 12 Lead EKG [facility] Cardiovascular Services [address] [place] [address] 12 Lead EKG 04/30/24 0528 MR#: [id number] Acct: [id number] Name: FELICITAS ALCANTARA Rep #: [id number] : 1950 73 From: Delgado Cruz MD Attending Dr: Dr. Nathan Torres DO Status: DIS RUBINA Ordering Dr: Polly Lomeli DO Date: 04/29/24 Location: [facility] Sex: F C Admitted: 04/29/24 Test [...] ECG Confirmed by ANTHONY MCARTHUR, ADELA ([id number]), newspaper or periodical editor ALLA LAINEZ ([id number]) on 05/01/2024 1:04:01 PM Referred By: Sly Blanco Confirmed By: ADELA CRUZ MD 05/01/24 5237 Date Delgado Cruz MD CC: Dr. Polly Lomeli DO; Dr. Nathan Torres DO; Dr. Harish Noel MD; Dr. Sly Blanco DO Signed Normal [facility] 12 Lead EKG [facility] Cardiovascular Services [address] [place] [address] 12 Lead EKG 04/29/24 1556 MR#: [id number] Acct: [id number] Name: FELICITAS ALCANTARA Rep #: [id number] : 1950 73 From: Delgado Cruz MD [...] ECG Confirmed by ANTHONY MCARTHUR, ADELA ([id number]), newspaper or periodical editor ALLA LAINEZ ([id number]) on 05/01/2024 1:00:07 PM Referred By: Sly Blanco Confirmed By: ADELA CRUZ MD 05/01/24 1300 Date Delgado Cruz MD CC: Dr. Nathan Torres DO; Dr. Harish Noel MD; Dr. Sly Blanco DO Signed Normal [facility] Arterial patency Wrist arter y --pre arterial punctureOrdered By: Polly Herr on 04-29-2024 Wagner Test Positive [facility] BNP (brain natriuretic pepti de measurement)Ordered By: Sly Blanco on 04-29-2024 Natriuretic peptide B (Bld) [Mass/Vol] 161.4 pg/mL High 0-[address] [facility] BNP,B-Type NATRIURETIC PEPTI Yahaira 04-29-2024 Natriuretic peptide B (Bld) [Mass/Vol] 161.4 pg/mL High 0-[address] [facility] Comment on above: Performed By: #### L 100.0100, L500.2500, L300.8000, L501.4020 #### [facility] Laboratory [address] [place], [address] Base excess Calc (BldV) [Mol es/Vol]Ordered By: Polly Herr on 04-29-2024 Blood Gas Base Excess 4 mmol/L High -2-2 [facility] Basic Metabolic Profile (BMP )on 04-29-2024 BUN/CRE 18.2 RATIO Normal 10-[address] [facility] Comment on above: Performed By: #### L 100.0100, L500.2500, L300.8000, L501.4020 #### [facility] [address] [place], [address] CA,Total 9.6 mg/dL Normal 8.5-10.[address] [facility] Comment on above: Performed By: #### L 100.0100, L500.2500, L300.8000, L501.4020 #### [facility] [address] [place], [address] Chloride [Moles/Vol] 101 mmol/L Normal 98-107 [facility] Comment on above: Performed By: #### L 100.0100, L500.2500, L300.8000, L501.4020 #### [facility] [address] [place], [address] CO2 [Moles/Vol] 26.0 mmol/L Normal 21.0-32.[address] [facility] Comment on above: Performed By: #### L 100.0100, L500.2500, L300.8000, L501.4020 #### [facility] [address] [place], [address] Creatinine [Mass/Vol] 0.82 mg/dL Normal 0.55-1.02 [facility] Comment on above: Result Comment: The validity of the calculated GFR GFRAA in patients over 70 years has not been determined. Clinical correlation is essential. Performed By: #### L 100.0100, L500.2500, L300.8000, L501.4020 #### [facility] [address] [place], [address] ECRCL 70.51 ml/min Normal [facility] Comment on above: Performed By: #### L 100.0100, L500.2500, L300.8000, L501.4020 #### [facility] [address] [place], [address] EST GFR - AA 88 mL/min Normal >[address] [facility] Comment on above: Result Comment: Afri can Guinean GFR Calc Performed By: #### L 100.0100, L500.2500, L300.8000, L501.4020 #### [facility] [address] [place], [address] GAP 9 Normal 5-[address] [facility] Comment on above: Performed By: #### L 100.0100, L500.2500, L300.8000, L501.4020 #### [facility] [address] [place], [address] GFR/1.73 sq M.predicted among non-blacks MDRD (S/P/Bld) [Vol rate/Area] 73 mL/min/{1.73_m2} Normal >[address] [facility] Comment on above: Result Comment: Non- GFR Calc Performed By: #### L 100.0100, L500.2500, L300.8000, L501.4020 #### [facility] [address] [place], [address] Glucose [Mass/Vol] 148 mg/dL High 74-106 [facility] Comment on above: Result Comment: Fast ing Glucose result greater than or equal to 126 mg/dL suggests DIABETES MELLITUS per A.D.A. criteria. Performed By: #### L 100.0100, L500.2500, L300.8000, L501.4020 #### [facility] [address] [place], [address] Potassium [Moles/Vol] 3.8 mmol/L Normal 3.5-5.1 [facility] Comment on above: Performed By: #### L 100.0100, L500.2500, L300.8000, L501.4020 #### [facility] [address] [place], [address] Sodium [Moles/Vol] 136 mmol/L Normal 136-145 [facility] Comment on above: Performed By: #### L 100.0100, L500.2500, L300.8000, L501.4020 #### [facility] [address] [place], [address] Urea nitrogen [Mass/Vol] 15 mg/dL Normal 7-[address] [facility] Comment on above: Performed By: #### L 100.0100, L500.2500, L300.8000, L501.4020 #### [facility] [address] [place], [address] Bilirubin Test strip Ql (U)O rdered By: Sly Blanco on 04-29-2024 Bilirubin Ql (U) Negative Negative [facility] Positive Normal [facility] Comment on above: Performed By: #### L 100.0100, L500.2500, L300.8000, L501.4020 #### [facility] [address] [place], [address] Base excess Calc (Bld) [Moles/Vol] 4 mmol/L High -2 to +[address] [facility] Comment on above: Performed By: #### L 100.0100, L500.2500, L300.8000, L501.4020 #### [facility] [address] [place], [address] Blood Gas Type ART [facility] Comment on above: Performed By: #### L 100.0100, L500.2500, L300.8000, L501.4020 #### [facility] [address] [place], [address] CO2 [Moles/Vol] 28 mmol/L Normal [facility] Comment on above: Performed By: #### L 100.0100, L500.2500, L300.8000, L501.4020 #### [facility] [address] [place], [address] HCO3 (Bld) [Moles/Vol] 27.2 mmol/L High 22-[address] [facility] Comment on above: Performed By: #### L 100.0100, L500.2500, L300.8000, L501.4020 #### [facility] [address] [place], [address] Mode Not entered [facility] Comment on above: Performed By: #### L 100.0100, L500.2500, L300.8000, L501.4020 #### [facility] [address] [place], [address] O2 Delivery Dev Room Air [facility] Comment on above: Performed By: #### L 100.0100, L500.2500, L300.8000, L501.4020 #### [facility] [address] [place], [address] pCO2 32.8 mmHg Low 35-[address] [facility] Comment on above: Performed By: #### L 100.0100, L500.2500, L300.8000, L501.4020 #### [facility] [address] [place], [address] pH (Bld) 7.53 [pH] High 7.35-7.[address] [facility] Comment on above: Performed By: #### L 100.0100, L500.2500, L300.8000, L501.4020 #### [facility] [address] [place], [address] PO2 60 mmHG Low 75-[address] [facility] Comment on above: Performed By: #### L 100.0100, L500.2500, L300.8000, L501.4020 #### [facility] [address] [place], [address] SITE L Radial Normal [facility] Comment on above: Performed By: #### L 100.0100, L500.2500, L300.8000, L501.4020 #### [facility] [address] [place], [address] SO2 94 Low 95-[address] [facility] Comment on above: Performed By: #### L 100.0100, L500.2500, L300.8000, L501.4020 #### [facility] [address] [place], [address] Blood bicarbonate measuremen tOrdered By: Polly Herr on 04-29-2024 Blood Gas Bicarbonate Actual 27.2 mmol/L High 22-[address] [facility] CBC W/Diff, Automatedon 04-18 Absolute Lymph 1.79 X10 3/uL Normal 0.83-4.[address] [facility] Comment on above: Performed By: #### L 100.0100, L500.2500, L300.8000, L501.4020 #### [facility] [address] [place], [address] Absolute Neut 11.7 X10 3/uL High 2.0-7.[address] [facility] Comment on above: Performed By: #### L 100.0100, L500.2500, L300.8000, L501.4020 #### [facility] [address] [place], [address] Basophils/100 WBC (Bld) 0.5 % Normal 0-[address] [facility] Comment on above: Performed By: #### L 100.0100, L500.2500, L300.8000, L501.4020 #### [facility] [address] [place], [address] Eosinophils/100 WBC (Bld) 2.3 % Normal 0-[address] [facility] Comment on above: Performed By: #### L 100.0100, L500.2500, L300.8000, L501.4020 #### [facility] [address] [place], [address] Erythrocyte distribution width (RBC) [Ratio] 13.2 % Normal 11.6-14.[address] [facility] Comment on above: Performed By: #### L 100.0100, L500.2500, L300.8000, L501.4020 #### [facility] [address] [place], [address] Hematocrit (Bld) [Volume fraction] 47.7 % High 37-[address] [facility] Comment on above: Performed By: #### L 100.0100, L500.2500, L300.8000, L501.4020 #### [facility] [address] [place], [address] Hemoglobin (Bld) [Mass/Vol] 15.2 g/dL High 12.0-15.[address] [facility] Comment on above: Performed By: #### L 100.0100, L500.2500, L300.8000, L501.4020 #### [facility] [address] [place], [address] IG% 0.600 Normal 0.0-0.[address] [facility] Comment on above: Result Comment: IG% - Immature Granulocytes (promyelocytes, myelocytes and metamyelocytes) > 1% indicates that a LEFT SHIFT is Present. Performed By: #### L 100.0100, L500.2500, L300.8000, L501.4020 #### [facility] [address] [place], [address] Lymphocytes/100 WBC (Bld) 12.1 % Low 19-[address] [facility] Comment on above: Performed By: #### L 100.0100, L500.2500, L300.8000, L501.4020 #### [facility] [address] [place], [address] MCH (RBC) [Entitic mass] 28.5 pg Normal 27.0-32.[address] [facility] Comment on above: Performed By: #### L 100.0100, L500.2500, L300.8000, L501.4020 #### [facility] [address] [place], [address] MCHC (RBC) [Mass/Vol] 31.9 g/dL Low 32-36 [facility] Comment on above: Performed By: #### L 100.0100, L500.2500, L300.8000, L501.4020 #### [facility] [address] [place], [address] MCV (RBC) [Entitic vol] 89.5 fL Normal 81-[address] [facility] Comment on above: Performed By: #### L 100.0100, L500.2500, L300.8000, L501.4020 #### [facility] [address] [place], [address] Monocytes/100 WBC (Bld) 4.9 % Normal 0-[address] [facility] Comment on above: Performed By: #### L 100.0100, L500.2500, L300.8000, L501.4020 #### [facility] [address] [place], [address] Neutrophils/100 WBC (Bld) 79.6 % High 47-[address] [facility] Comment on above: Performed By: #### L 100.0100, L500.2500, L300.8000, L501.4020 #### [facility] [address] [place], [address] Nucleated RBC (Bld) [#/Vol] 0 10*3/uL Normal 0-[address] [facility] Comment on above: Performed By: #### L 100.0100, L500.2500, L300.8000, L501.4020 #### [facility] [address] [place], [address] Platelet mean volume (Bld) [Entitic vol] 10.7 fL Normal 6.2-12.[address] [facility] Comment on above: Performed By: #### L 100.0100, L500.2500, L300.8000, L501.4020 #### [facility] [address] [place], [address] Platelets (Bld) [#/Vol] 291 10*3/uL Normal 150-[address] [facility] Comment on above: Performed By: #### L 100.0100, L500.2500, L300.8000, L501.4020 #### [facility] [address] [place], [address] RBC (Bld) [#/Vol] 5.33 10*6/uL Normal 4.2-5.4 [facility] Comment on above: Performed By: #### L 100.0100, L500.2500, L300.8000, L501.4020 #### [facility] [address] [place], [address] RDW SD 43.5 fl Normal 35.1-43.[address] [facility] Comment on above: Performed By: #### L 100.0100, L500.2500, L300.8000, L501.4020 #### [facility] [address] [place], [address] WBC (Bld) [#/Vol] 14.8 10*3/uL High 4.4-11.0 [facility] Comment on above: Performed By: #### L 100.0100, L500.2500, L300.8000, L501.4020 #### [facility] [address] [place], [address] Chest 1 View (Portable)on Chest 1 View (Portable) [facility] Imaging Services [address] [place] [address] Chest 1 View (Portable) MR#: [id number] Acct: [id number] Name: FELICITAS ALCANTARA Rep #: [id number] : 1950 F 73 From: Aviva Joyner nd, MD PCP: Dr. Harish Noel MD Status: [facility] ER Study: Chest 1 View (Portable) Date of Exam: 04/29/24 Exam# [id number] Ordering Dr: Sly Blanco DO PROCEDURE: CHEST [...] cardiomegaly. Otherwise unremarkable chest radiograph. Reading Location: [facility] CC: Dr. Harish Noel MD; Dr. Sly Blanco DO Storage Garage Attendant: Signed Normal [facility] D-Dimer Quantitative (DVT/PE )on 04-29-2024 D-DIMER QUANT < 0.27 Low 0.27-0.[address] [facility] Comment on above: Result Comment: NORM AL D-Dimer level (<0.50) indicates no DVT or PE. Performed By: #### L 100.0100, L500.2500, L300.8000, L501.4020 #### [facility] [address] [place], [address] D-dimer measurement for deep venous thrombosisOrdered By: Sly Blanco on 04-29-2024 D-Dimer Quantitative (PE/DVT) < 0.27 FEU/ug/m Low 0.27-0.[address] [facility] Comment on above: NORMAL D-Dimer level (<0.50) indicates no DVT or PE. Emergency Department Summary on 04-29-2024 Emergency Department Summary [facility] Medical Records Department [address] [place] [address] Emergency Department Summary 04/29/24 MR#: [id number] Acct: [id number] Name: FELICITAS ALCANTARA Rep #: [id number] : 1950 73 From: Sly Blanco DO PCP: Dr. 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 Normal [facility] Epithelial cells.squamous LM Ql (Urine sed)Ordered By: Sly Blanco on 04-29-2024 Epithelial cells.squamous LM.HPF (Urine sed) [#/Area] 0 /[HPF] 5-[address] [facility] Glucose Ql (U)Ordered By: Giovanny Blanco on 04-29-2024 Urine Glucose (UA) Normal mg/dl Normal [facility] H AND P Exam - Hospitaliston 04-29-2024 H&P Exam - Hospitalist [facility] Medical Records Department [address] [place] [address] H P Exam - Hospitalist 04/29/24 193 MR#: [id number] Acct: [id number] Name: FELICITAS ALCANTARA Rep #: [id number] : 1950 73 From: Polly Lomeli DO PCP: Dr. Harish Noel MD Status:ADM RUBINA Location: [place] [address] HPI - General General Date of Admission: [...] OA who presents to [facility] ER complaining of chest pain, SOB [...] expected to be less than 2 midnights. [facility] Medical History History of left heart catheterization (LHC) ( 09/05/21) Abnormal nuclear stress test Dyspnea on exertion Mass of lip Elevated WBC count History of DVT (deep vein thrombosis) Presence of stent in coronary artery ( 04/10/16) History of non-ST elevation myocardial infarction (NSTEMI) Cardiogenic shock Type 2 diabetes mellitus 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 Essential hypertension [...] content not included)... Normal [facility] Hemoglobin A1con 04-29-2024 HbA1c (Bld) [Mass fraction] 9.4 % High 3.8-5.[address] [facility] Comment on above: Result Comment: Norm al < 5.7 % Prediabetic 5.7 - 6.4 % Diabetic >or= 6.5 % Please note range changes. Performed By: #### L 100.0100, L500.2500, L300.8000, L501.4020 #### [facility] [address] [place], [address] Hemoglobin A1c percentageOrd ered By: Polly Herr on 04-29-2024 HbA1c (Bld) [Mass fraction] 9.4 % High 3.8-5.[address] [facility] Comment on above: Normal < 5.7 % Predi abetic 5.7 - 6.4 % Diabetic >or= 6.5 % Please note range changes. High density lipoprotein (HD L) measurementOrdered By: Polly Herr on 04-29-2024 Cholesterol in HDL [Mass/Vol] 64 mg/dL >[address] [facility] Comment on above: The drugs N-Acetylcy steine and Metamizole may falsely depress this assay. Reference Range HDL <40 mg/dL Low HDL Cholesterol HDL >or= 60 mg/dL High HDL Cholesterol Influenza virus A and B and SARS-CoV-2 (COVID-19) and Respiratory syncytial virus RNAOrdered By: Sly Blanco on 04-29-2024 SARS-CoV-2 (COVID-19) RNA SLOAN+probe Ql (Unsp spec) [facility] Ketones Test strip Ql (U)Ord ered By: Sly Blanco on 04-29-2024 Ketones Ql (U) Negative Negative [facility] L501.4020on 04-29-2024 TROPONIN-I HS 17 pg/mL Normal 3.0-54.[address] [facility] Comment on above: Order Comment: 'TROP ' Serial specimen #1, #2 or #3: 3 Result Comment: Carlton rice Note: New Test Units and Gender Specific Reference Ranges. For more information see Policy Stat Procedure [place] High Sensitivity Troponin (TNIH) and attachments. Performed By: #### L 501.4020 ####[facility] [address] [place], [address] TROPONIN-I HS 14 pg/mL Normal 3.0-54.[address] [facility] Comment on above: Result Comment: Plea se Note: New Test Units and Gender Specific Reference Ranges. For more information see Policy Stat Procedure [place] High Sensitivity Troponin (TNIH) and attachments. Performed By: #### L 100.0100, L500.2500, L300.8000, L501.4020 #### [facility] [address] [place], [address] L501.5425on 04-29-2024 TROPONIN-I HS 12 pg/mL Normal 3.0-54.[address] [facility] Comment on above: Order Comment: 'TROP ' Serial specimen #1, #2 or #3: 1 Result Comment: Plea se Note: New Test Units and Gender Specific Reference Ranges. For more information see Policy Stat Procedure [place] High Sensitivity Troponin (TNIH) and attachments. Performed By: #### L 100.0100, L500.2500, L300.8000, L501.4020 #### [facility] [address] [place], [address] Lipid Profileon 04-29-2024 Cholesterol [Mass/Vol] 197 mg/dL Normal 200 [facility] Comment on above: Result Comment: <200 mg/dL Desirable 200-240 mg/dL Borderline >240 mg/dL High Risk Performed By: #### L 100.0100, L500.2500, L300.8000, L501.4020 #### [facility] [address] [place], [address] Cholesterol in HDL [Mass/Vol] 64 mg/dL Normal [facility] Comment on above: Result Comment: The drugs N-Acetylcysteine and Metamizole may falsely depress this assay. Reference Range HDL <40 mg/dL Low HDL Cholesterol HDL >or= 60 mg/dL High HDL Cholesterol Performed By: #### L 100.0100, L500.2500, L300.8000, L501.4020 #### [facility] [address] [place], [address] Cholesterol in LDL [Mass/Vol] 102 mg/dL Normal 0-[address] [facility] Comment on above: Performed By: #### L 100.0100, L500.2500, L300.8000, L501.4020 #### [facility] [address] [place], [address] Cholesterol in VLDL [Mass/Vol] 31 mg/dL Normal 5-[address] [facility] Comment on above: Performed By: #### L 100.0100, L500.2500, L300.8000, L501.4020 #### [facility] [address] [place], [address] Triglyceride [Mass/Vol] 155 mg/dL Normal [facility] Comment on above: Result Comment: The drugs N-Acetylcysteine and Metamizole may falsely depress this assay. Serum Triglycerides Reference Interval Normal <150 mg/dL Borderline high 150 - 199 mg/dL High 200 - 499 mg/dL Very High > or = 500 mg/dL Performed By: #### L 100.0100, L500.2500, L300.8000, L501.4020 #### [facility] [address] [place], [address] Low density lipoprotein (LDL ) cholesterol measurementOrdered By: Polly Herr on 04-29-2024 Cholesterol in LDL [Mass/Vol] 102 mg/dL 0-[address] [facility] M100.678on 04-29-2024 M100.678 SARS-CoV-2 (COVID 19 ) Negative INFLUENZA A Negative INFLUENZA B Negative RSV PCR Negative Normal [facility] Comment on above: Performed By: #### M 100.678 ####[facility] [address] [place], [address] Microscopic analysis of urin e for red blood cells (RBC)Ordered By: Sly Blanco on 04-29-2024 Urine RBC 0-5 SEEN /hpf 0-[address] [facility] Mucus LM Ql (Urine sed)Order ed By: Sly Blanco on 04-29-2024 Mucus Ql (Urine sed) 0 SEEN /hpf [facility] Nitrite Test strip Ql (U)Ord ered By: Sly Blanco on 04-29-2024 Nitrite Ql (U) Negative Negative [facility] No Panel InformationOrdered By: Polly Herr on 04-29-2024 Blood Gas Sample Site L Radial [facility] Blood Gas Specimen Type ART [facility] Blood Gas Vent Mode Not entered [facility] Oxygen Delivery Device Room Air [facility] Oxygen saturation measuremen tOrdered By: Polly Herr on 04-29-2024 Blood Gas Oxygen Saturation 94 % Low 95-[address] [facility] Partial pressure of carbon d ioxide measurementOrdered By: Polly Herr on 04-29-2024 Arterial Blood Partial Pressure CO2 32.8 mmHg Low 35-[address] [facility] Partial pressure of oxygen m easurementOrdered By: Polly Herr on 04-29-2024 Arterial Blood Partial Pressure O2 60 mmHG Low 75-[address] [facility] Protein Test strip Ql (U)Ord ered By: Sly Blanco on 04-29-2024 Protein Ql (U) Negative Negative [facility] Serum or plasma cholesterol measurement (mass/volume)Ordered By: Polly Herr on 04-29-2024 Cholesterol [Mass/Vol] 197 mg/dL <200 [facility] Comment on above: <200 mg/dL Desirable 200-240 mg/dL Borderline >240 mg/dL High Risk TSH QnOrdered By: Polly vasquez on 04-29-2024 Thyroid Stimulating Hormone (TSH) 3.480 uIU/mL 0.358-3.[address] [facility] Thyroid Stim Hormone (TSH)on 04-29-2024 TSH 3.480 uIU/mL Normal 0.358-3.[address] [facility] Comment on above: Performed By: #### L 100.0100, L500.2500, L300.8000, L501.4020 #### [facility] [address] [place], [place], [id number] Total carbon dioxide measure mentOrdered By: Polly Herr on 04-29-2024 Blood Gas Total CO2 28 mmol/L [facility] Triglycerides measurementOrd ered By: Polly Herr on 04-29-2024 Triglyceride [Mass/Vol] 155 mg/dL <[address] [facility] Comment on above: The drugs N-Acetylcy steine and Metamizole may falsely depress this assay.Serum Triglycerides Reference Interval Normal <150 mg/dL Borderline high 150 - 199 mg/dL High 200 - 499 mg/dL Very High > or = 500 mg/dL Troponin IOrdered By: Polly Herr on 04-29-2024 Troponin I High Sensitivity 17 pg/mL 3.0-54.[address] [facility] Comment on above: Please Note: [place] t Units and Gender Specific Reference Ranges. For more information see Policy Stat Procedure [place] High Sensitivity Troponin (TNIH) and attachments. Urinalysis, Completeon 04-29 EPI,SQUAMOUS 0-5 SEEN Normal 5-[address] [facility] Comment on above: Order Comment: MAURISIO CTOR TO SPECIFY Performed By: #### L 400.0001 ####[facility] [address] [place], [address] RBC 0-5 SEEN Normal 0-[address] [facility] Comment on above: Order Comment: MAURISIO CTOR TO SPECIFY Performed By: #### L 400.0001 ####[facility] [address] [place], [address] WBC 0-5 SEEN Normal 0-[address] [facility] Comment on above: Order Comment: MAURISIO CTOR TO SPECIFY Performed By: #### L 400.0001 ####[facility] [address] [place], [address] BACTERIA Normal None Seen [facility] Comment on above: Order Comment: CLEAN CATCH Result Comment: Marina elled via OM: Duplicate Order Performed By: #### L 100.0100, L500.2500, L300.8000, L501.4020 #### [facility] [address] [place], [address] BILIRUBIN URINE Normal Negative [facility] Comment on above: Order Comment: CLEAN CATCH Result Comment: Canc elled via OM: Duplicate Order Performed By: #### L 100.0100, L500.2500, L300.8000, L501.4020 #### [facility] [address] [place], [address] Clarity (U) Normal Clear [facility] Comment on above: Order Comment: CLEAN CATCH Result Comment: Canc elled via OM: Duplicate Order Performed By: #### L 100.0100, L500.2500, L300.8000, L501.4020 #### [facility] [address] [place], [address] Color (U) Normal Yellow [facility] Comment on above: Order Comment: CLEAN CATCH Result Comment: Canc elled via OM: Duplicate Order Performed By: #### L 100.0100, L500.2500, L300.8000, L501.4020 #### [facility] [address] [place], [address] EPI,SQUAMOUS Normal 5-[address] [facility] Comment on above: Order Comment: CLEAN CATCH Result Comment: Canc elled via OM: Duplicate Order Performed By: #### L 100.0100, L500.2500, L300.8000, L501.4020 #### [facility] [address] [place], [address] GLUCOSE, UR Normal Normal [facility] Comment on above: Order Comment: CLEAN CATCH Result Comment: Canc elled via OM: Duplicate Order Performed By: #### L 100.0100, L500.2500, L300.8000, L501.4020 #### [facility] [address] [place], [address] KETONE UR Normal Negative [facility] Comment on above: Order Comment: CLEAN CATCH Result Comment: Canc elled via OM: Duplicate Order Performed By: #### L 100.0100, L500.2500, L300.8000, L501.4020 #### [facility] [address] [place], [address] LEUK ESTERASE Normal Negative [facility] Comment on above: Order Comment: CLEAN CATCH Result Comment: Canc elled via OM: Duplicate Order Performed By: #### L 100.0100, L500.2500, L300.8000, L501.4020 #### [facility] [address] [place], [address] Mucus Ql (Urine sed) Normal [facility] Comment on above: Order Comment: CLEAN CATCH Result Comment: Canc elled via OM: Duplicate Order Performed By: #### L 100.0100, L500.2500, L300.8000, L501.4020 #### [facility] [address] [place], [address] Nitrite Ql (U) Normal Negative [facility] Comment on above: Order Comment: CLEAN CATCH Result Comment: Canc elled via OM: Duplicate Order Performed By: #### L 100.0100, L500.2500, L300.8000, L501.4020 #### [facility] [address] [place], [address] OCCULT BLOOD-UR Normal Negative [facility] Comment on above: Order Comment: CLEAN CATCH Result Comment: Canc elled via OM: Duplicate Order Performed By: #### L 100.0100, L500.2500, L300.8000, L501.4020 #### [facility] [address] [place], [address] pH UR Normal 5.0 - 8.[address] [facility] Comment on above: Order Comment: CLEAN CATCH Result Comment: Canc elled via OM: Duplicate Order Performed By: #### L 100.0100, L500.2500, L300.8000, L501.4020 #### [facility] [address] [place], [address] PROT DIPSTX Normal Negative [facility] Comment on above: Order Comment: CLEAN CATCH Result Comment: Canc elled via OM: Duplicate Order Performed By: #### L 100.0100, L500.2500, L300.8000, L501.4020 #### [facility] [address] [place], [address] RBC Normal 0-[address] [facility] Comment on above: Order Comment: CLEAN CATCH Result Comment: Canc elled via OM: Duplicate Order Performed By: #### L 100.0100, L500.2500, L300.8000, L501.4020 #### [facility] [address] [place], [address] SP.GR. DIPSTX Normal 1.002-1.[address] [facility] Comment on above: Order Comment: CLEAN CATCH Result Comment: Canc elled via OM: Duplicate Order Performed By: #### L 100.0100, L500.2500, L300.8000, L501.4020 #### [facility] [address] [place], [address] UR Preservative Normal [facility] Comment on above: Order Comment: CLEAN CATCH Result Comment: Canc elled via OM: Duplicate Order Performed By: #### L 100.0100, L500.2500, L300.8000, L501.4020 #### [facility] [address] [place], [address] UROBILI Normal Normal [facility] Comment on above: Order Comment: CLEAN CATCH Result Comment: Canc elled via OM: Duplicate Order Performed By: #### L 100.0100, L500.2500, L300.8000, L501.4020 #### [facility] [address] [place], [address] WBC Normal 0-[address] [facility] Comment on above: Order Comment: CLEAN CATCH Result Comment: Canc elled via OM: Duplicate Order Performed By: #### L 100.0100, L500.2500, L300.8000, L501.4020 #### [facility] [address] [place], [address] BACTERIA 0 SEEN Normal None Seen [facility] Comment on above: Order Comment: MAURISIO CTOR TO SPECIFY Performed By: #### L 400.0001 ####[facility] [address] [place], [address] Mucus Ql (Urine sed) 0 SEEN Normal [facility] Comment on above: Order Comment: COLLE CTOR TO SPECIFY Performed By: #### L 400.0001 ####[facility] [address] [place], [address] Urine Drug Screen (VISTA)on 04-29-2024 AMPHETAMINES Normal <1000 ng/mL [facility] Comment on above: Result Comment: PT.D ISCHARGED, COULD NOT FIND A PLAIN YELLOW TOP/STERILE CUP URINE Performed By: #### L 100.0100, L500.2500, L300.8000, L501.4020 #### [facility] [address] [place], [address] BARBITIURATES Normal < 200 ng/mL [facility] Comment on above: Result Comment: PT.D ISCHARGED, COULD NOT FIND A PLAIN YELLOW TOP/STERILE CUP URINE Performed By: #### L 100.0100, L500.2500, L300.8000, L501.4020 #### [facility] [address] [place], [address] BENZODIAZIPINE Normal < 200 ng/[facility] [facility] Comment on above: Result Comment: PT.D ISCHARGED, COULD NOT FIND A PLAIN YELLOW TOP/STERILE CUP URINE Performed By: #### L 100.0100, L500.2500, L300.8000, L501.4020 #### [facility] [address] [place], [address] COCAINE Normal < 300 ng/mL [facility] Comment on above: Result Comment: PT.D ISCHARGED, COULD NOT FIND A PLAIN YELLOW TOP/STERILE CUP URINE Performed By: #### L 100.0100, L500.2500, L300.8000, L501.4020 #### [facility] [address] [place], [address] DRUG CONFIRM Normal [facility] Comment on above: Result Comment: PT.D ISCHARGED, COULD NOT FIND A PLAIN YELLOW TOP/STERILE CUP URINE Performed By: #### L 100.0100, L500.2500, L300.8000, L501.4020 #### [facility] [address] [place] [address] ECSTACY Normal < 500 ng/mL [facility] Comment on above: Result Comment: PT.D ISCHARGED, COULD NOT FIND A PLAIN YELLOW TOP/STERILE CUP URINE Performed By: #### L 100.0100, L500.2500, L300.8000, L501.4020 #### [facility] [address] [place] [address] METHADONE Normal < 300 ng/mL [facility] Comment on above: Result Comment: PT.D ISCHARGED, COULD NOT FIND A PLAIN YELLOW TOP/STERILE CUP URINE Performed By: #### L 100.0100, L500.2500, L300.8000, L501.4020 #### [facility] [address] [facility] [address] OPIATES Normal < 300 ng/mL [facility] Comment on above: Result Comment: PT.D ISCHARGED, COULD NOT FIND A PLAIN YELLOW TOP/STERILE CUP URINE Performed By: #### L 100.0100, L500.2500, L300.8000, L501.4020 #### [facility] [address] [place] [address] PCP Normal < 25 ng/mL [facility] Comment on above: Result Comment: PT.D ISCHARGED, COULD NOT FIND A PLAIN YELLOW TOP/STERILE CUP URINE Performed By: #### L 100.0100, L500.2500, L300.8000, L501.4020 #### [facility] [address] [place], [address] THC Normal < 50 ng/mL [facility] Comment on above: Result Comment: PT.D ISCHARGED, COULD NOT FIND A PLAIN YELLOW TOP/STERILE CUP URINE Performed By: #### L 100.0100, L500.2500, L300.8000, L501.4020 #### [facility] [address] [place], [address] VISTA UDS PH Normal [facility] Comment on above: Result Comment: PT.D ISCHARGED, COULD NOT FIND A PLAIN YELLOW TOP/STERILE CUP URINE Performed By: #### L 100.0100, L500.2500, L300.8000, L501.4020 #### [facility] [address] [place], [address] Urine blood detectionOrdered By: Sly Blanco on 04-29-2024 Urine Occult Blood 10 /ul High Negative [facility] Urine clarityOrdered By: Kinjal Blanco on 04-29-2024 Clarity (U) Clear Clear [facility] Urine color determinationOrd ered By: Sly Blanco on 04-29-2024 Color (U) Straw Yellow [facility] Urine leukocyte esterase det ection by dipstickOrdered By: Sly Blanco on 04-29-2024 Leukocyte esterase Test strip Ql (U) 25 /ul High Negative [facility] Urine pHOrdered By: Sly sandra on 04-29-2024 pH (U) 8.0 [pH] 5.0 - 8.[address] [facility] Urine sediment bacteria coun t by microscopy (number/high power field)Ordered By: Sly Blanco on 04-29-2024 Bacteria LM.HPF (Urine sed) [#/Area] 0 /[HPF] None Seen [facility] Urine specific gravity measu rementOrdered By: Sly Blanco on 04-29-2024 Specific gravity (U) [Rel density] 1.010 1.002-1.[address] [facility] Urobilinogen Ql (U)Ordered B y: Sly Blanco on 04-29-2024 Urine Urobilinogen Normal mg/dl Normal [facility] Very low density lipoprotein (VLDL) cholesterol measurementOrdered By: Polly Herr on 04-29-2024 VLDL Cholesterol 31 mg/dL 5-[address] [facility] White blood cell countOrdere d By: Sly Blanco on 04-29-2024 Urine WBC 0-5 SEEN /hpf 0-[address] [facility] pH (Unsp spec)Ordered By: Mane Herr on 04-29-2024 Blood Gas pH 7.53 High 7.35-7.[address] [facility] CBC W/Diff, Automatedon 11-0 -2023 Absolute Lymph 2.42 X10 3/uL Normal 0.83-4.[address] [facility] Comment on above: Performed By: #### L 400.0001 #### [facility] [address] [place], [address] Absolute Neut 9.2 X10 3/uL High 2.0-7.[address] [facility] Comment on above: Performed By: #### L 400.0001 #### [facility] [address] [place], [address] Basophils/100 WBC (Bld) 0.3 % Normal 0-[address] [facility] Comment on above: Performed By: #### L 400.0001 #### [facility] [address] [place], [address] Eosinophils/100 WBC (Bld) 2.0 % Normal 0-[address] [facility] Comment on above: Performed By: #### L 400.0001 #### [facility] [address] [place], [address] Erythrocyte distribution width (RBC) [Ratio] 13.1 % Normal 11.6-14.[address] [facility] Comment on above: Performed By: #### L 400.0001 #### [facility] [address] [place], [address] Hematocrit (Bld) [Volume fraction] 44.4 % Normal 37-[address] [facility] Comment on above: Performed By: #### L 400.0001 #### [facility] [address] [place], [address] Hemoglobin (Bld) [Mass/Vol] 14.1 g/dL Normal 12.0-15.[address] [facility] Comment on above: Performed By: #### L 400.0001 #### [facility] [address] [place], [address] IG% 0.600 Normal 0.0-0.[address] [facility] Comment on above: Result Comment: IG% - Immature Granulocytes (promyelocytes, myelocytes and metamyelocytes) > 1% indicates that a LEFT SHIFT is Present. Performed By: #### L 400.0001 #### [facility] [address] [place], [address] Lymphocytes/100 WBC (Bld) 18.9 % Low 19-[address] [facility] Comment on above: Performed By: #### L 400.0001 #### [facility] [address] [place], [address] MCH (RBC) [Entitic mass] 29.4 pg Normal 27.0-32.[address] [facility] Comment on above: Performed By: #### L 400.0001 #### [facility] [address] [place], [address] MCHC (RBC) [Mass/Vol] 31.8 g/dL Low 32-36 [facility] Comment on above: Performed By: #### L 400.0001 #### [facility] [address] [place], [address] MCV (RBC) [Entitic vol] 92.5 fL Normal 81-[address] [facility] Comment on above: Performed By: #### L 400.0001 #### [facility] [address] [place], [address] Monocytes/100 WBC (Bld) 6.7 % Normal 0-[address] [facility] Comment on above: Performed By: #### L 400.0001 #### [facility] [address] [place], [address] Neutrophils/100 WBC (Bld) 71.5 % High 47-[address] [facility] Comment on above: Performed By: #### L 400.0001 #### [facility] [address] [place], [address] Nucleated RBC (Bld) [#/Vol] 0 10*3/uL Normal 0-[address] [facility] Comment on above: Performed By: #### L 400.0001 #### [facility] [address] [place], [address] Platelet mean volume (Bld) [Entitic vol] 10.8 fL Normal 6.2-12.[address] [facility] Comment on above: Performed By: #### L 400.0001 #### [facility] [address] [place], [address] Platelets (Bld) [#/Vol] 305 10*3/uL Normal 150-[address] [facility] Comment on above: Performed By: #### L 400.0001 #### [facility] [address] [place], [address] RBC (Bld) [#/Vol] 4.80 10*6/uL Normal 4.2-5.4 [facility] Comment on above: Performed By: #### L 400.0001 #### [facility] [address] [place], [address] RDW SD 44.4 fl High 35.1-43.[address] [facility] Comment on above: Performed By: #### L 400.0001 #### [facility] [address] [place], [address] WBC (Bld) [#/Vol] 12.8 10*3/uL High 4.4-11.0 [facility] Comment on above: Performed By: #### L 400.0001 #### [facility] [address] [place], [address] Comprehensive Metabolic Prof ilon 01-17-2024 Albumin [Mass/Vol] 3.3 g/dL Normal 3.2-5.0 [facility] Comment on above: Performed By: #### L 400.0001 #### [facility] [address] [place], [address] Albumin/Globulin [Mass ratio] 0.8 {ratio} Low 0.9-2.[address] [facility] Comment on above: Performed By: #### L 400.0001 #### [facility] [address] [place], [address] ALK P 110 U/L Normal 45-[address] [facility] Comment on above: Performed By: #### L 400.0001 #### [facility] [address] [place], [address] ALT [Catalytic activity/Vol] 20 U/L Normal 13-[address] [facility] Comment on above: Performed By: #### L 400.0001 #### [facility] [address] [place], [address] AST [Catalytic activity/Vol] 12 U/L Low 15-[address] [facility] Comment on above: Performed By: #### L 400.0001 #### [facility] [address] [place], [address] Bilirubin [Mass/Vol] 0.70 mg/dL Normal 0.20-1.00 [facility] Comment on above: Result Comment: For patients on eltrombopag therapy, use of Dimension [place] TBIL is not recommended. Performed By: #### L 400.0001 #### [facility] [address] [place], [address] BUN/CRE 20.4 RATIO High 10-[address] [facility] Comment on above: Performed By: #### L 400.0001 #### [facility] [address] [place], [address] CA,Total 9.1 mg/dL Normal 8.5-10.[address] [facility] Comment on above: Performed By: #### L 400.0001 #### [facility] [address] [place], [address] Chloride [Moles/Vol] 102 mmol/L Normal 98-107 [facility] Comment on above: Performed By: #### L 400.0001 #### [facility] [address] [place], [address] CO2 [Moles/Vol] 26.0 mmol/L Normal 21.0-32.[address] [facility] Comment on above: Performed By: #### L 400.0001 #### [facility] [address] [place], [address] Creatinine [Mass/Vol] 0.88 mg/dL Normal 0.55-1.02 [facility] Comment on above: Result Comment: The validity of the calculated GFR GFRAA in patients over 70 years has not been determined. Clinical correlation is essential. Performed By: #### L 400.0001 #### [facility] [address] [place], [address] EST GFR - AA 81 mL/min Normal >[address] [facility] Comment on above: Result Comment: Afri can Guinean GFR Calc Performed By: #### L 400.0001 #### [facility] [address] [place], [address] GAP 8 Normal 5-[address] [facility] Comment on above: Performed By: #### L 400.0001 #### [facility] [address] [place], [address] GFR/1.73 sq M.predicted among non-blacks MDRD (S/P/Bld) [Vol rate/Area] 67 mL/min/{1.73_m2} Normal >[address] [facility] Comment on above: Result Comment: Non- GFR Calc Performed By: #### L 400.0001 #### [facility] [address] [place], [address] Globulin (S) [Mass/Vol] 4.0 g/dL Normal 2.2-4.2 [facility] Comment on above: Performed By: #### L 400.0001 #### [facility] [address] [place], [address] Glucose [Mass/Vol] 277 mg/dL High 74-106 [facility] Comment on above: Result Comment: Gluc ose result greater than or equal to 200 mg/dL suggests DIABETES MELLITUS per A.D.A. criteria. Performed By: #### L 400.0001 #### [facility] [address] [place], [address] Potassium [Moles/Vol] 4.4 mmol/L Normal 3.5-5.1 [facility] Comment on above: Performed By: #### L 400.0001 #### [facility] [address] [place], [address] Sodium [Moles/Vol] 136 mmol/L Normal 136-145 [facility] Comment on above: Performed By: #### L 400.0001 #### [facility] [address] [place], [address] T PROT 7.3 g/dL Normal 6.4-8.[address] [facility] Comment on above: Performed By: #### L 400.0001 #### [facility] [address] [place], [address] Urea nitrogen [Mass/Vol] 18 mg/dL Normal 7-[address] [facility] Comment on above: Performed By: #### L 400.0001 #### [facility] [address] [place], [address] Free T3on 01-17-2024 Free T3 [Mass/Vol] 2.4 pg/mL Normal 2.18-3.98 [facility] Comment on above: Performed By: #### L 400.0001 #### [facility] [address] [place], [address] Hemoglobin A1con 01-17-2024 HbA1c (Bld) [Mass fraction] 10.8 % High 3.8-5.[address] [facility] Comment on above: Result Comment: Norm al < 5.7 % Prediabetic 5.7 - 6.4 % Diabetic >or= 6.5 % Please note range changes. Performed By: #### L 400.0001 #### [facility] [address] [place], [address] Lipid Profileon 01-17-2024 Cholesterol [Mass/Vol] 143 mg/dL Normal 200 [facility] Comment on above: Result Comment: <200 mg/dL Desirable 200-240 mg/dL Borderline >240 mg/dL High Risk Performed By: #### L 400.0001 #### [facility] [address] [place], [address] Cholesterol in HDL [Mass/Vol] 54 mg/dL Normal [facility] Comment on above: Result Comment: The drugs N-Acetylcysteine and Metamizole may falsely depress this assay. Reference Range HDL <40 mg/dL Low HDL Cholesterol HDL >or= 60 mg/dL High HDL Cholesterol Performed By: #### L 400.0001 #### [facility] [address] [place], [address] Cholesterol in LDL [Mass/Vol] 53 mg/dL Normal 0-[address] [facility] Comment on above: Performed By: #### L 400.0001 #### [facility] [address] [place], [address] Cholesterol in VLDL [Mass/Vol] 36 mg/dL Normal 5-[address] [facility] Comment on above: Performed By: #### L 400.0001 #### [facility] [address] [place], [address] Triglyceride [Mass/Vol] 182 mg/dL Normal [facility] Comment on above: Result Comment: The drugs N-Acetylcysteine and Metamizole may falsely depress this assay. Serum Triglycerides Reference Interval Normal <150 mg/dL Borderline high 150 - 199 mg/dL High 200 - 499 mg/dL Very High > or = 500 mg/dL Performed By: #### L 400.0001 #### [facility] [address] [place], [address] Magnesiumon 01-17-2024 Magnesium [Mass/Vol] 2.1 mg/dL Normal 1.6-2.6 [facility] Comment on above: Performed By: #### L 400.0001 #### [facility] [address] [place], [address] T4 Free Directon 01-17-2024 T4 FREE DIRECT 1.16 ng/dL Normal 0.76-1.[address] [facility] Comment on above: Performed By: #### L 400.0001 #### [facility] [address] [place], [address] Thyroid Stim Hormone (TSH)on 01-17-2024 TSH 3.800 uIU/mL High 0.358-3.[address] [facility] Comment on above: Performed By: #### L 400.0001 #### [facility] [address] [place], [address] Vitamin D,25 Hydroxyon 01-16 Vitamin D 25-OH 10.2 ng/mL Normal [facility] Comment on above: Result Comment: Lucy min D 25(OH) Status Range Deficiency <20 ng/mL (50nmol/L) Insufficiency 20 - 30 ng/mL (50 - 75 nmol/L) Sufficiency 30 - 100 ng/mL (75 - 250 nmol/L) Toxicity >100 ng/mL (>250 nmol/L) Performed By: #### L 400.0001 #### [facility] [address] [place], [place], [address] MR/BMS.IMBon 01-16-2024 MR/BMS.IMB [facility] [address] [place], [place] [address] OFFICE VISIT Date of Service: 01/16/24 MR#: [id number] Acct: [id number] Name: FELICITAS ALCANTARA Rep #: [id number] : 1950 Provider: Dr. 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 Normal [facility] 12 Lead EKGon 01-15-2024 12 Lead EKG [facility] Services [address] [place] [address] 12 Lead EKG 01/15/24 0930 MR#: [id number] Acct: [id number] Name: FELICITAS ALCANTARA Rep #: [id number] : 1950 73 From: Cecilio Feliz MD [...] ECG Confirmed by CECILIO FELIZ MD ([id number]), newspaper or periodical editor ALLA LAINEZ ([id number]) on 01/17/2024 8:14:37 AM Referred By: JESUS/SIMONE Confirmed By: CECILIO FELIZ MD 11/01/813 Cecilio Feliz MD CC: Dr. Nathan Pritchard, DO; Dr. Harish Noel MD Signed Normal [facility] Basic Metabolic Profile (BMP )on 01-15-2024 BUN/CRE 18.8 RATIO Normal 01-[address] [facility] Comment on above: Order Comment: 1Y Performed By: #### L 100.0100, L500.2500, L300.8000, L501.4020 #### [facility] [address] [place], [address] CA,Total 9.7 mg/dL Normal 8.5-10.[address] [facility] Comment on above: Order Comment: 1Y Performed By: #### L 100.0100, L500.2500, L300.8000, L501.4020 #### [facility] [address] [place], [address] Chloride [Moles/Vol] 101 mmol/L Normal 98-107 [facility] Comment on above: Order Comment: 1Y Performed By: #### L 100.0100, L500.2500, L300.8000, L501.4020 #### [facility] [address] [place], [address] CO2 [Moles/Vol] 28.0 mmol/L Normal 21.0-32.[address] [facility] Comment on above: Order Comment: 1Y Performed By: #### L 100.0100, L500.2500, L300.8000, L501.4020 #### [facility] [address] [place], [address] Creatinine [Mass/Vol] 0.91 mg/dL Normal 0.55-1.02 [facility] Comment on above: Order Comment: 1Y Result Comment: The validity of the calculated GFR GFRAA in patients over 70 years has not been determined. Clinical correlation is essential. Performed By: #### L 100.0100, L500.2500, L300.8000, L501.4020 #### [facility] [address] [place], [address] ECRCL 63.57 ml/min Normal [facility] Comment on above: Order Comment: 1Y Performed By: #### L 100.0100, L500.2500, L300.8000, L501.4020 #### [facility] [address] [place], [address] EST GFR - AA 79 mL/min Normal >[address] [facility] Comment on above: Order Comment: 1Y Result Comment: Afri can Guinean GFR Calc Performed By: #### L 100.0100, L500.2500, L300.8000, L501.4020 #### [facility] [address] [place], [address] GAP 7 Normal 5-[address] [facility] Comment on above: Order Comment: 1Y Performed By: #### L 100.0100, L500.2500, L300.8000, L501.4020 #### [facility] [address] [place], [address] GFR/1.73 sq M.predicted among non-blacks MDRD (S/P/Bld) [Vol rate/Area] 65 mL/min/{1.73_m2} Normal >[address] [facility] Comment on above: Order Comment: 1Y Result Comment: Non- GFR Calc Performed By: #### L 100.0100, L500.2500, L300.8000, L501.4020 #### [facility] [address] [place], [address] Glucose [Mass/Vol] 231 mg/dL High 74-106 [facility] Comment on above: Order Comment: 1Y Result Comment: Gluc ose result greater than or equal to 200 mg/dL suggests DIABETES MELLITUS per A.D.A. criteria. Performed By: #### L 100.0100, L500.2500, L300.8000, L501.4020 #### [facility] [address] [place], [address] Potassium [Moles/Vol] 4.3 mmol/L Normal 3.5-5.1 [facility] Comment on above: Order Comment: 1Y Performed By: #### L 100.0100, L500.2500, L300.8000, L501.4020 #### [facility] [address] [place], [address] Sodium [Moles/Vol] 136 mmol/L Normal 136-145 [facility] Comment on above: Order Comment: 1Y Performed By: #### L 100.0100, L500.2500, L300.8000, L501.4020 #### [facility] [address] [place], [address] Urea nitrogen [Mass/Vol] 17 mg/dL Normal 7-[address] [facility] Comment on above: Order Comment: 1Y Performed By: #### L 100.0100, L500.2500, L300.8000, L501.4020 #### [facility] [address] [place], [address] CBC W/Diff, Automatedon 10-3 0-2024 Absolute Lymph 2.13 X10 3/uL Normal 0.83-4.[address] [facility] Comment on above: Performed By: #### L 100.0100, L500.2500, L300.8000, L501.4020 #### [facility] [address] [place], [address] Absolute Neut 10.5 X10 3/uL High 2.0-7.[address] [facility] Comment on above: Performed By: #### L 100.0100, L500.2500, L300.8000, L501.4020 #### [facility] [address] [place], [address] Basophils/100 WBC (Bld) 0.7 % Normal 0-[address] [facility] Comment on above: Performed By: #### L 100.0100, L500.2500, L300.8000, L501.4020 #### [facility] [address] [place], [address] Eosinophils/100 WBC (Bld) 1.7 % Normal 0-[address] [facility] Comment on above: Performed By: #### L 100.0100, L500.2500, L300.8000, L501.4020 #### [facility] [address] [place], [address] Erythrocyte distribution width (RBC) [Ratio] 13.0 % Normal 11.6-14.[address] [facility] Comment on above: Performed By: #### L 100.0100, L500.2500, L300.8000, L501.4020 #### [facility] [address] [place], [address] Hematocrit (Bld) [Volume fraction] 45.9 % Normal 37-[address] [facility] Comment on above: Performed By: #### L 100.0100, L500.2500, L300.8000, L501.4020 #### [facility] [address] [place], [address] Hemoglobin (Bld) [Mass/Vol] 15.2 g/dL High 12.0-15.[address] [facility] Comment on above: Performed By: #### L 100.0100, L500.2500, L300.8000, L501.4020 #### [facility] [address] [place], [address] IG% 1.100 High 0.0-0.9 [facility] [facility] Comment on above: Result Comment: IG% - Immature Granulocytes (promyelocytes, myelocytes and metamyelocytes) > 1% indicates that a LEFT SHIFT is Present. Performed By: #### L 100.0100, L500.2500, L300.8000, L501.4020 #### [facility] [address] [place], [address] Lymphocytes/100 WBC (Bld) 15.1 % Low 19-[address] [facility] Comment on above: Performed By: #### L 100.0100, L500.2500, L300.8000, L501.4020 #### [facility] [address] [place], [address] MCH (RBC) [Entitic mass] 29.9 pg Normal 27.0-32.[address] [facility] Comment on above: Performed By: #### L 100.0100, L500.2500, L300.8000, L501.4020 #### [facility] [address] [place], [address] MCHC (RBC) [Mass/Vol] 33.1 g/dL Normal 32-36 [facility] Comment on above: Performed By: #### L 100.0100, L500.2500, L300.8000, L501.4020 #### [facility] [address] [place], [address] MCV (RBC) [Entitic vol] 90.2 fL Normal 81-99 [facility] Comment on above: Performed By: #### L 100.0100, L500.2500, L300.8000, L501.4020 #### [facility] [address] [place], [address] Monocytes/100 WBC (Bld) 6.7 % Normal 0-[address] [facility] Comment on above: Performed By: #### L 100.0100, L500.2500, L300.8000, L501.4020 #### [facility] [address] [place], [address] Neutrophils/100 WBC (Bld) 74.7 % High 47-[address] [facility] Comment on above: Performed By: #### L 100.0100, L500.2500, L300.8000, L501.4020 #### [facility] [address] [place], [address] Nucleated RBC (Bld) [#/Vol] 0 10*3/uL Normal 0-[address] [facility] Comment on above: Performed By: #### L 100.0100, L500.2500, L300.8000, L501.4020 #### [facility] [address] [place], [address] Platelet mean volume (Bld) [Entitic vol] 10.7 fL Normal 6.2-12.[address] [facility] Comment on above: Performed By: #### L 100.0100, L500.2500, L300.8000, L501.4020 #### [facility] [address] [place], [address] Platelets (Bld) [#/Vol] 348 10*3/uL Normal 150-[address] [facility] Comment on above: Performed By: #### L 100.0100, L500.2500, L300.8000, L501.4020 #### [facility] [address] [place], [address] RBC (Bld) [#/Vol] 5.09 10*6/uL Normal 4.2-5.4 [facility] Comment on above: Performed By: #### L 100.0100, L500.2500, L300.8000, L501.4020 #### [facility] [address] [place], [address] RDW SD 42.7 fl Normal 35.1-43.[address] [facility] Comment on above: Performed By: #### L 100.0100, L500.2500, L300.8000, L501.4020 #### [facility] [address] [place], [address] WBC (Bld) [#/Vol] 14.1 10*3/uL High 4.4-11.0 [facility] Comment on above: Performed By: #### L 100.0100, L500.2500, L300.8000, L501.4020 #### [facility] [address] [place], [address] Chest 1 View (Portable)on Chest 1 View (Portable) [facility] Imaging Services [address] [place] [address] Chest 1 View (Portable) MR#: [id number] Acct: [id number] Name: FELICITAS ALCANTARA Rep #: [id number] : 1950 F 73 From: Hemanth Quinn MD PCP: Dr. Harish Noel MD Status: REG ER Study: Chest 1 View (Portable) Date of Exam: 01/15/24 Exam# [id number] Ordering Dr: Nathan Pritchard DO [id number] EXAM: XR CHEST, 1 VIEW CLINICAL INDICATION: [...] Nathan Pritchard DO; Dr. 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 Emergency Department Summary on 01-15-2024 Emergency Department Summary 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 Normal [facility] L501.4020on 01-15-2024 TROPONIN-I HS 9 pg/mL Normal 3.0-54.[address] [facility] Comment on above: Result Comment: Plea se Note: New Test Units and Gender Specific Reference Ranges. For more information see Policy Stat Procedure [place] High Sensitivity Troponin (TNIH) and attachments. Performed By: #### L 400.0001 #### [facility] [address] [place], [address] L501.5425on 01-15-2024 TROPONIN-I HS 10 pg/mL Normal 3.0-54.[address] [facility] Comment on above: Order Comment: 1Y Result Comment: Plea se Note: New Test Units and Gender Specific Reference Ranges. For more information see Policy Stat Procedure [place] High Sensitivity Troponin (TNIH) and attachments. Performed By: #### L 100.0100, L500.2500, L300.8000, L501.4020 #### [facility] [address] [place], [address] 12 Lead EKGon 09-03-2023 12 Lead EKG [facility] Cardiovascular Services [address] [place] [address] 12 Lead EKG 09/02/23 1636 MR#: [id number] Acct: [id number] Name: FELICITAS ALCANTARA Rep #: [id number] : 1950 72 From: Cecilio Feliz MD [...] by CECILIO FELIZ MD ([id number]), ALLA Vincent ([id number]) on 09/03/2023 11:26:35 AM Referred By: Confirmed By:CECILIO FELIZ MD 09/03/23 1126 Date Cecilio Feliz MD CC: Dr. Ravi Lamb MD; Dr. Harish Noel MD Signed [facility] 12 Lead EKG [facility] Cardiovascular Services [address] [place] [address] 12 Lead EKG 09/03/23 0638 MR#: [id number] Acct: [id number] Name: FELICITAS ALCANTARA Rep #: [id number] : 1950 72 From: Cecilio Feliz MD [...] Abnormal ECG Confirmed by CECILIO FELIZ MD ([id number]), ALLA Vincent ([id number]) on 09/05/2023 8:13:25 AM Referred By: JA Confirmed By:CECILIO FELIZ MD 09/05/23 0813 Date Cecilio Feliz MD CC: Dr. Ravi Lamb MD; Dr. Harish Noel MD Signed [facility] Abdomen/Pelvis W IV Cont ONL Yon 09-03-2023 Abdomen/Pelvis W IV Cont ONLY [facility] Imaging Services [address] [place], [place] [address] Abdomen/Pelvis W IV Cont ONLY MR#: [id number] Acct: [id number] Name: FELICITAS ALCANTARA Rep #: [id number] : 1950 F 72 From: Roel lopez MD PCP: Dr. Harish Noel MD Status: REG ER Study: Abdomen/Pelvis W IV Cont ONLY Date of Exam: Exam# [id number] Ordering Dr: Ravi Lamb MD [id number] STUDY: CT ABDOMEN AND PELVIS WITH CONTRAST [...] Ravi Lamb MD; Dr. 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 Basic Metabolic Profile (BMP )on 09-03-2023 BUN/CRE 18.8 RATIO Normal 10-[address] [facility] Comment on above: Order Comment: MAURISIO CTOR TO SPECIFY Performed By: #### L 400.0001 #### [facility] [address] [place], [address] CA,Total 9.7 mg/dL Normal 8.5-10.[address] [facility] Comment on above: Order Comment: MAURISIO CTOR TO SPECIFY Performed By: #### L 400.0001 #### [facility] [address] [place], [address] Chloride [Moles/Vol] 98 mmol/L Normal 98-107 [facility] Comment on above: Order Comment: MAURISIO CTOR TO SPECIFY Performed By: #### L 400.0001 #### [facility] [address] [place], [address] CO2 [Moles/Vol] 26.0 mmol/L Normal 21.0-32.[address] [facility] Comment on above: Order Comment: MAURISIO CTOR TO SPECIFY Performed By: #### L 400.0001 #### [facility] [address] [place], [address] Creatinine [Mass/Vol] 0.90 mg/dL Normal 0.55-1.02 [facility] Comment on above: Order Comment: COLLE CTOR TO SPECIFY Result Comment: The validity of the calculated GFR GFRAA in patients over 70 years has not been determined. Clinical correlation is essential. Performed By: #### L 400.0001 #### [facility] [address] [place], [address] ECRCL 64.13 ml/min Normal [facility] Comment on above: Order Comment: MAURISIO DISLAOR TO SPECIFY Performed By: #### L 400.0001 #### [facility] [address] [place], [address] EST GFR - AA 79 mL/min Normal >[address] [facility] Comment on above: Order Comment: MAURISIO DISLAOR TO SPECIFY Result Comment: Afri can [place] GFR Calc Performed By: #### L 400.0001 #### [facility] [address] [place], [address] GAP 7 Normal 5-[address] [facility] Comment on above: Order Comment: MAURISIO WHITE TO SPECIFY Performed By: #### L 400.0001 #### [facility] [address] [place], [address] GFR/1.73 sq M.predicted among non-blacks MDRD (S/P/Bld) [Vol rate/Area] 65 mL/min/{1.73_m2} Normal >[address] [facility] Comment on above: Order Comment: MAURISIO WHITE TO SPECIFY Result Comment: Non- GFR Calc Performed By: #### L 400.0001 #### [facility] [address] [place], [address] Glucose [Mass/Vol] 278 mg/dL High 74-106 [facility] Comment on above: Order Comment: MAURISIO DISLAOR TO SPECIFY Result Comment: Gluc ose result greater than or equal to 200 mg/dL suggests DIABETES MELLITUS per A.D.A. criteria. Performed By: #### L 400.0001 #### [facility] [address] [place], [address] Potassium [Moles/Vol] 4.1 mmol/L Normal 3.5-5.1 [facility] Comment on above: Order Comment: MAURISIO CTOR TO SPECIFY Performed By: #### L 400.0001 #### [facility] [address] [place], [address] Sodium [Moles/Vol] 131 mmol/L Low 136-145 [facility] Comment on above: Order Comment: COLLE CTOR TO SPECIFY Performed By: #### L 400.0001 #### [facility] [address] [place], [address] Urea nitrogen [Mass/Vol] 17 mg/dL Normal 7-[address] [facility] Comment on above: Order Comment: COLLE CTOR TO SPECIFY Performed By: #### L 400.0001 #### [facility] [address] [place], [address] Bedside Glucoseon 09-03-2023 FINGERSTICK GLU 295 mg/dL High 74-[address] [facility] Comment on above: Result Comment: RIMMA ADRIAN OF PATIENT CARE PER NURSING PROTOCOL Performed By: #### L 100.0100, L500.2500, L300.8000, L501.4020 #### [facility] [address] [place], [address] CBC W/Diff, Automatedon - Absolute Lymph 2.10 X10 3/uL Normal 0.83-4.[address] [facility] Comment on above: Performed By: #### L 400.0001 #### [facility] [address] [place], [address] Absolute Neut 15.2 X10 3/uL High 2.0-7.[address] [facility] Comment on above: Performed By: #### L 400.0001 #### [facility] [address] [place], [address] Basophils/100 WBC (Bld) 0.4 % Normal 0-[address] [facility] Comment on above: Performed By: #### L 400.0001 #### [facility] [address] [place], [address] Eosinophils/100 WBC (Bld) 0.4 % Normal 0-[address] [facility] Comment on above: Performed By: #### L 400.0001 #### [facility] [address] [place], [address] Erythrocyte distribution width (RBC) [Ratio] 12.8 % Normal 11.6-14.[address] [facility] Comment on above: Performed By: #### L 400.0001 #### [facility] [address] [place], [address] Hematocrit (Bld) [Volume fraction] 50.1 % High 37-[address] [facility] Comment on above: Performed By: #### L 400.0001 #### [facility] [address] [place], [address] Hemoglobin (Bld) [Mass/Vol] 16.0 g/dL High 12.0-15.[address] [facility] Comment on above: Performed By: #### L 400.0001 #### [facility] [address] [place], [address] IG% 0.700 Normal 0.0-0.[address] [facility] Comment on above: Result Comment: IG% - Immature Granulocytes (promyelocytes, myelocytes and metamyelocytes) > 1% indicates that a LEFT SHIFT is Present. Performed By: #### L 400.0001 #### [facility] [address] [place], [address] Lymphocytes/100 WBC (Bld) 11.4 % Low 19-[address] [facility] Comment on above: Performed By: #### L 400.0001 #### [facility] [address] [place], [address] MCH (RBC) [Entitic mass] 29.1 pg Normal 27.0-32.[address] [facility] Comment on above: Performed By: #### L 400.0001 #### [facility] [address] [place], [address] MCHC (RBC) [Mass/Vol] 31.9 g/dL Low 32-36 [facility] Comment on above: Performed By: #### L 400.0001 #### [facility] [address] [place], [address] MCV (RBC) [Entitic vol] 91.1 fL Normal 81-[address] [facility] Comment on above: Performed By: #### L 400.0001 #### [facility] [address] [place], [address] Monocytes/100 WBC (Bld) 4.8 % Normal 0-10 [facility] Comment on above: Performed By: #### L 400.0001 #### [facility] [address] [place], [address] Neutrophils/100 WBC (Bld) 82.3 % High 47-[address] [facility] Comment on above: Performed By: #### L 400.0001 #### [facility] [address] [place], [address] Nucleated RBC (Bld) [#/Vol] 0 10*3/uL Normal 0-[address] [facility] Comment on above: Performed By: #### L 400.0001 #### [facility] [address] [place], [address] Platelet mean volume (Bld) [Entitic vol] 10.7 fL Normal 6.2-12.[address] [facility] Comment on above: Performed By: #### L 400.0001 #### [facility] [address] [place], [address] Platelets (Bld) [#/Vol] 333 10*3/uL Normal 150-[address] [facility] Comment on above: Performed By: #### L 400.0001 #### [facility] [address] [place], [address] RBC (Bld) [#/Vol] 5.50 10*6/uL High 4.2-5.4 [facility] Comment on above: Performed By: #### L 400.0001 #### [facility] [address] [place], [address] RDW SD 42.5 fl Normal 35.1-43.[address] [facility] Comment on above: Performed By: #### L 400.0001 #### [facility] [address] [place], [address] WBC (Bld) [#/Vol] 18.4 10*3/uL High 4.4-11.0 [facility] Comment on above: Performed By: #### L 400.0001 #### [facility] [address] [place], [address] Chest 1 View (Portable)on Chest 1 View (Portable) [facility] Imaging Services [address] [place] [address] Chest 1 View (Portable) MR#: [id number] Acct: [id number] Name: FELICITAS ALCANTARA Rep #: [id number] : 1950 F 72 From: Roel lopez MD PCP: Dr. Harish Noel MD Status: [facility] ER Study: Chest 1 View (Portable) Date of Exam: 09/03/23 Exam# [id number] Ordering Dr: Ravi Lamb MD [id number] STUDY: X-RAY CHEST REASON FOR EXAM: Female, [...] 8:33 EDT Reading Location ID and State: [address] [place] [address] , Service support , CC: Dr. Ravi Lamb MD; Dr. 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 Emergency Department Summary on 09-03-2023 Emergency Department Summary [facility] Medical Records Department [address] [place] [address] Emergency Department Summary 09/03/23 MR#: [id number] Acct: [id number] Name: FELICITAS ALCANTARA Rep #: [id number] : 1950 72 From: Ravi Lamb MD [...] 2 diabetes mellitus 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 Essential hypertension [...] content not included)... Normal [facility] L501.4020on 09-03-2023 TROPONIN-I HS 14 pg/mL Normal 3.0-54.[address] [facility] Comment on above: Order Comment: 'TROP ' Serial specimen #1, #2 or #3: 1 Result Comment: Plea se Note: New Test Units and Gender Specific Reference Ranges. For more information see Policy Stat Procedure [place] High Sensitivity Troponin (TNIH) and attachments. Performed By: #### L 100.0100, L500.2500, L300.8000, L501.4020 #### [facility] [address] [place], [address] Urinalysis, Completeon 09-02 BACTERIA 2+ /hpf Normal None Seen [facility] Comment on above: Order Comment: MAURISIO CTOR TO SPECIFY Performed By: #### L 400.0001 #### [facility] [address] [place], [address] EPI,SQUAMOUS 0-5 SEEN Normal 5-[address] [facility] Comment on above: Order Comment: MAURISIO CTOR TO SPECIFY Performed By: #### L 400.0001 #### [facility] [address] [place], [address] WBC 0-5 SEEN Normal 0-[address] [facility] Comment on above: Order Comment: MAURISIO CTOR TO SPECIFY Performed By: #### L 400.0001 #### [facility] [address] [place], [address] Mucus Ql (Urine sed) 0 SEEN Normal [facility] Comment on above: Order Comment: MAURISIO CTOR TO SPECIFY Performed By: #### L 400.0001 #### [facility] [address] [place], [address] RBC 0 SEEN Normal 0-[address] [facility] Comment on above: Order Comment: MAURISIO CTOR TO SPECIFY Performed By: #### L 400.0001 #### [facility] [address] [place], [address] Basic Metabolic Profile (BMP )on 09-02-2023 BUN/CRE 20.0 RATIO Normal 10-[address] [facility] Comment on above: Order Comment: 'TROP ' Serial specimen #1, #2 or #3: 1 Performed By: #### L 100.0100, L500.2500, L300.8000, L501.4020 #### [facility] [address] [place], [address] CA,Total 9.4 mg/dL Normal 8.5-10.[address] [facility] Comment on above: Order Comment: 'TROP ' Serial specimen #1, #2 or #3: 1 Performed By: #### L 100.0100, L500.2500, L300.8000, L501.4020 #### [facility] [address] [place], [address] Chloride [Moles/Vol] 101 mmol/L Normal 98-107 [facility] Comment on above: Order Comment: 'TROP ' Serial specimen #1, #2 or #3: 1 Performed By: #### L 100.0100, L500.2500, L300.8000, L501.4020 #### [facility] [address] [place], [address] CO2 [Moles/Vol] 27.0 mmol/L Normal 21.0-32.[address] [facility] Comment on above: Order Comment: 'TROP ' Serial specimen #1, #2 or #3: 1 Performed By: #### L 100.0100, L500.2500, L300.8000, L501.4020 #### [facility] [address] [place], [address] Creatinine [Mass/Vol] 0.95 mg/dL Normal 0.55-1.02 [facility] Comment on above: Order Comment: 'TROP ' Serial specimen #1, #2 or #3: 1 Result Comment: The validity of the calculated GFR GFRAA in patients over 70 years has not been determined. Clinical correlation is essential. Performed By: #### L 100.0100, L500.2500, L300.8000, L501.4020 #### [facility] [address] [place], [address] ECRCL 61.67 ml/min Normal [facility] Comment on above: Order Comment: 'TROP ' Serial specimen #1, #2 or #3: 1 Performed By: #### L 100.0100, L500.2500, L300.8000, L501.4020 #### [facility] [address] [place], [address] EST GFR - AA 74 mL/min Normal >[address] [facility] Comment on above: Order Comment: 'TROP ' Serial specimen #1, #2 or #3: 1 Result Comment: Afri can Guinean GFR Calc Performed By: #### L 100.0100, L500.2500, L300.8000, L501.4020 #### [facility] [address] [place], [address] GAP 8 Normal 5-[address] [facility] Comment on above: Order Comment: 'TROP ' Serial specimen #1, #2 or #3: 1 Performed By: #### L 100.0100, L500.2500, L300.8000, L501.4020 #### [facility] [address] [place], [address] GFR/1.73 sq M.predicted among non-blacks MDRD (S/P/Bld) [Vol rate/Area] 62 mL/min/{1.73_m2} Normal >[address] [facility] Comment on above: Order Comment: 'TROP ' Serial specimen #1, #2 or #3: 1 Result Comment: Non- GFR Calc Performed By: #### L 100.0100, L500.2500, L300.8000, L501.4020 #### [facility] [address] [place], [address] Glucose [Mass/Vol] 276 mg/dL High 74-106 [facility] Comment on above: Order Comment: 'TROP ' Serial specimen #1, #2 or #3: 1 Result Comment: Gluc ose result greater than or equal to 200 mg/dL suggests DIABETES MELLITUS per A.D.A. criteria. Performed By: #### L 100.0100, L500.2500, L300.8000, L501.4020 #### [facility] [address] [place], [address] Potassium [Moles/Vol] 4.2 mmol/L Normal 3.5-5.1 [facility] Comment on above: Order Comment: 'TROP ' Serial specimen #1, #2 or #3: 1 Performed By: #### L 100.0100, L500.2500, L300.8000, L501.4020 #### [facility] [address] [place], [address] Sodium [Moles/Vol] 136 mmol/L Normal 136-145 [facility] Comment on above: Order Comment: 'TROP ' Serial specimen #1, #2 or #3: 1 Performed By: #### L 100.0100, L500.2500, L300.8000, L501.4020 #### [facility] [address] [place], [address] Urea nitrogen [Mass/Vol] 19 mg/dL High 7-[address] [facility] Comment on above: Order Comment: 'TROP ' Serial specimen #1, #2 or #3: 1 Performed By: #### L 100.0100, L500.2500, L300.8000, L501.4020 #### [facility] [address] [place], [address] CBC W/Diff, Automatedon 06-1 -2023 Absolute Lymph 1.95 X10 3/uL Normal 0.83-4.[address] [facility] Comment on above: Performed By: #### L 100.0100, L500.2500, L300.8000, L501.4020 #### [facility] [address] [place], [address] Absolute Neut 10.4 X10 3/uL High 2.0-7.[address] [facility] Comment on above: Performed By: #### L 100.0100, L500.2500, L300.8000, L501.4020 #### [facility] [address] [place], [address] Basophils/100 WBC (Bld) 0.6 % Normal 0-[address] [facility] Comment on above: Performed By: #### L 100.0100, L500.2500, L300.8000, L501.4020 #### [facility] [address] [place], [address] Eosinophils/100 WBC (Bld) 2.0 % Normal 0-[address] [facility] Comment on above: Performed By: #### L 100.0100, L500.2500, L300.8000, L501.4020 #### [facility] [address] [place], [address] Erythrocyte distribution width (RBC) [Ratio] 12.8 % Normal 11.6-14.[address] [facility] Comment on above: Performed By: #### L 100.0100, L500.2500, L300.8000, L501.4020 #### [facility] [address] [place] [place], [address] Hematocrit (Bld) [Volume fraction] 46.8 % Normal 37-[address] [facility] Comment on above: Performed By: #### L 100.0100, L500.2500, L300.8000, L501.4020 #### [facility] [address] [place], [address] Hemoglobin (Bld) [Mass/Vol] 15.1 g/dL High 12.0-15.[address] [facility] Comment on above: Performed By: #### L 100.0100, L500.2500, L300.8000, L501.4020 #### [facility] [address] [place], [address] IG% 0.700 Normal 0.0-0.[address] [facility] Comment on above: Result Comment: IG% - Immature Granulocytes (promyelocytes, myelocytes and metamyelocytes) > 1% indicates that a LEFT SHIFT is Present. Performed By: #### L 100.0100, L500.2500, L300.8000, L501.4020 #### [facility] [address] [place], [address] Lymphocytes/100 WBC (Bld) 14.3 % Low 19-[address] [facility] Comment on above: Performed By: #### L 100.0100, L500.2500, L300.8000, L501.4020 #### [facility] [address] [place], [address] MCH (RBC) [Entitic mass] 29.2 pg Normal 27.0-32.[address] [facility] Comment on above: Performed By: #### L 100.0100, L500.2500, L300.8000, L501.4020 #### [facility] [address] [place], [address] MCHC (RBC) [Mass/Vol] 32.3 g/dL Normal 32-36 [facility] Comment on above: Performed By: #### L 100.0100, L500.2500, L300.8000, L501.4020 #### [facility] [address] [place], [address] MCV (RBC) [Entitic vol] 90.3 fL Normal 81-99 [facility] Comment on above: Performed By: #### L 100.0100, L500.2500, L300.8000, L501.4020 #### [facility] [address] [place], [address] Monocytes/100 WBC (Bld) 6.0 % Normal 0-10 [facility] Comment on above: Performed By: #### L 100.0100, L500.2500, L300.8000, L501.4020 #### [facility] [address] [place], [address] Neutrophils/100 WBC (Bld) 76.4 % High 47-[address] [facility] Comment on above: Performed By: #### L 100.0100, L500.2500, L300.8000, L501.4020 #### [facility] [address] [place], [address] Nucleated RBC (Bld) [#/Vol] 0 10*3/uL Normal 0-[address] [facility] Comment on above: Performed By: #### L 100.0100, L500.2500, L300.8000, L501.4020 #### [facility] [address] [place], [address] Platelet mean volume (Bld) [Entitic vol] 10.8 fL Normal 6.2-12.[address] [facility] Comment on above: Performed By: #### L 100.0100, L500.2500, L300.8000, L501.4020 #### [facility] [address] [place], [address] Platelets (Bld) [#/Vol] 309 10*3/uL Normal 150-[address] [facility] Comment on above: Performed By: #### L 100.0100, L500.2500, L300.8000, L501.4020 #### [facility] [address] [place], [address] RBC (Bld) [#/Vol] 5.18 10*6/uL Normal 4.2-5.4 [facility] Comment on above: Performed By: #### L 100.0100, L500.2500, L300.8000, L501.4020 #### [facility] [address] [place], [address] RDW SD 42.4 fl Normal 35.1-43.[address] [facility] Comment on above: Performed By: #### L 100.0100, L500.2500, L300.8000, L501.4020 #### [facility] [address] [place], [address] WBC (Bld) [#/Vol] 13.6 10*3/uL High 4.4-11.0 [facility] Comment on above: Performed By: #### L 100.0100, L500.2500, L300.8000, L501.4020 #### [facility] [address] [place], [address] Chest PA and Lateralon 09-01 Chest PA and Lateral [facility] Imaging Services [address] [place] [address] Chest PA and Lateral MR#: [id number] Acct: [id number] Name: FELICITAS ALCANTARA Rep #: [id number] : 1950 F 72 From: Malachi Lindsay MD PCP: Dr. Harish Noel MD Status: REG ER Study: Chest PA and Lateral Date of Exam: 09/02/23 Exam# [id number] Ordering Dr: Nathan Pritchard DO [id number] STUDY: X-RAY CHEST REASON FOR EXAM: Female, [...] Nathan Pritchard DO; Dr. 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 D-Dimer Quantitative (DVT/PE )on 09-02-2023 D-DIMER QUANT 0.40 FEU/ug/m Normal 0.27-0.[address] [facility] Comment on above: Result Comment: NORM AL D-Dimer level (<0.50) indicates no DVT or PE. Performed By: #### L 100.0100, L500.2500, L300.8000, L501.4020 #### [facility] [address] [facility] [place], [address] Emergency Department Summary on 09-02-2023 Emergency Department Summary [facility] Medical Records Department [address] [place] [address] Emergency Department Summary 09/02/23 MR#: [id number] Acct: [id number] Name: FELICITAS ALCANTARA Rep #: [id number] : 1950 72 From: Nathan Pritchard DO [...] also admits to some dizziness and headache. 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 Normal [facility] L501.4020on 09-02-2023 TROPONIN-I HS 12 pg/mL Normal 3.0-54.[address] [facility] Comment on above: Order Comment: 'TROP ' Serial specimen #1, #2 or #3: 1 Result Comment: Carlton rice Note: New Test Units and Gender Specific Reference Ranges. For more information see Policy Stat Procedure [place] High Sensitivity Troponin (TNIH) and attachments. Performed By: #### L 100.0100, L500.2500, L300.8000, L501.4020 #### [facility] [address] [place], [address] Urinalysis, Completeon 09-01 EPI,SQUAMOUS 0-5 SEEN Normal 5-[address] [facility] Comment on above: Order Comment: MAURISIO WHITE TO SPECIFY Performed By: #### L 400.0001 #### [facility] [address] [place], [address] BACTERIA 0 SEEN Normal None Seen [facility] Comment on above: Order Comment: COLLE CTOR TO SPECIFY Performed By: #### L 400.0001 #### [facility] [address] [place], [address] Mucus Ql (Urine sed) 0 SEEN Normal [facility] Comment on above: Order Comment: COLLE CTOR TO SPECIFY Performed By: #### L 400.0001 #### [facility] [address] [place], [address] RBC 0 SEEN Normal 0-[address] [facility] Comment on above: Order Comment: COLLE CTOR TO SPECIFY Performed By: #### L 400.0001 #### [facility] [address] [place], [address] WBC 0 SEEN Normal 0-[address] [facility] Comment on above: Order Comment: COLLE CTOR TO SPECIFY Performed By: #### L 400.0001 #### [facility] [address] [place], [address] MR/BMS.Bon 08-05-2023 MR/BMS.[facility] Internal Medicine [address] [place] [address] OFFICE VISIT Date of Service: 08/05/23 MR#: [id number] Acct: [id number] Name: FELICITAS ALCANTARA Rep #: [id number] : 1950 Provider: Dr. Harish jose MD Age/Sex: 72/F Location: 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 She is only on carvedilol and clopidogrel [...] content not included)... Normal [facility] Absolute lymphocyte countOrd ered By: Dr. Noel on 06-11-2022 Lymphocytes Auto (Unsp spec) [#/Vol] 3.11 10*3/uL 0.83-4.[address] [facility] Basophil percentageOrdered B y: Dr. Noel on 06-11-2022 Basophils/100 WBC (Bld) 0.6 % 0-[address] [facility] Bilirubin [Mass/Vol] 0.60 mg/dL 0.20-1.00 [facility] Comment on above: For patients on eltr ombopag therapy, use of Dimension [place] TBIL is not recommended. Chloride [Moles/Vol] 102 mmol/L 98-107 [facility] Eosinophils/100 WBC (Bld) 2.2 % 0-[address] [facility] Glucose [Mass/Vol] 173 mg/dL 74-106 [facility] Comment on above: Fasting Glucose resu lt greater than or equal to 126 mg/dL suggests DIABETES MELLITUS per A.D.A. criteria. Neutrophils (Bld) [#/Vol] 9.5 10*3/uL 2.0-7.[address] [facility] Neutrophils/100 WBC (Bld) 67.2 % 47-[address] [facility] Potassium [Moles/Vol] 4.2 mmol/L 3.5-5.1 [facility] Protein [Mass/Vol] 7.5 g/dL 6.4-8.2 [facility] Sodium [Moles/Vol] 135 mmol/L 136-145 [facility] WBC (Bld) [#/Vol] 14.0 10*3/uL 4.4-11.0 [facility] Basophil percentageOrdered B y: Rustam Francois on 06-11-2022 Cholesterol [Mass/Vol] 158 mg/dL <200 [facility] Comment on above: <200 mg/dL Desirable 200-240 mg/dL Borderline >240 mg/dL High Risk Triglyceride [Mass/Vol] 212 mg/dL <[address] [facility] Comment on above: The drugs N-Acetylcy steine and Metamizole may falsely depress this assay.Serum Triglycerides Reference Interval Normal <150 mg/dL Borderline high 150 - 199 mg/dL High 200 - 499 mg/dL Very High > or = 500 mg/dL Blood erythrocytes count (nu mber/volume)Ordered By: Dr. Noel on 06-11-2022 RBC (Bld) [#/Vol] 5.01 10*6/uL 4.2-5.4 [facility] Blood hemoglobin measurement (mass/volume)Ordered By: Dr. Noel on 06-11-2022 Hemoglobin (Bld) [Mass/Vol] 14.6 g/dL 12.0-15.[address] [facility] Blood lymphocytes/100 leukoc ytesOrdered By: Dr. Noel on 06-11-2022 Lymphocytes/100 WBC (Bld) 22.2 % 19-[address] [facility] Blood monocytes/100 leukocyt esOrdered By: Dr. Noel on 06-11-2022 Monocytes/100 WBC (Bld) 7.0 % 0-[address] [facility] Blood platelet mean volumeOr dered By: Dr. Noel on 06-11-2022 Platelet mean volume (Bld) [Entitic vol] 10.5 fL 6.2-12.[address] [facility] Determination of erythrocyte mean corpuscular volume (MCV)Ordered By: Dr. Noel on 06-11-2022 MCV (RBC) [Entitic vol] 89.6 fL 81-[address] [facility] Direct bilirubinOrdered By: Dr. Noel on 06-11-2022 Bilirubin.direct [Mass/Vol] 0.16 mg/dL 0.00-0.[address] [facility] Hematocrit Auto (Bld) [Volum e fraction]Ordered By: Dr. Noel on 06-11-2022 Hematocrit (Bld) [Volume fraction] 44.9 % 37-[address] [facility] Laboratory - Chemistry and C hemistry - challengeOrdered By: Dr. Noel on 06-11-2022 ALP [Catalytic activity/Vol] 98 U/L 45-[address] [facility] ALT [Catalytic activity/Vol] 25 U/L 13-[address] [facility] CO2 [Moles/Vol] 28.0 mmol/L 21.0-32.[address] [facility] Cobalamin (Vitamin B12) [Mass/Vol] 296 pg/mL 211-[address] [facility] Free T4 [Mass/Vol] 1.03 ng/dL 0.76-1.46 [facility] Globulin (S) [Mass/Vol] 4.2 g/dL 2.2-4.[address] [facility] Urea nitrogen/Creatinine [Mass ratio] 21.3 mg/mg 10-[address] [facility] - Hematology and Cell countsOrdered By: Dr. Noel on 06-11-2022 Erythrocyte distribution width (RBC) [Entitic vol] 46.9 fL 35.1-43.[address] [facility] Erythrocyte distribution width (RBC) [Ratio] 14.3 % 11.6-14.[address] [facility] Immature granulocytes/100 WBC (Bld) 0.800 % 0.0-0.[address] [facility] Comment on above: IG% - Immature Granu locytes (promyelocytes, myelocytes and metamyelocytes) > 1% indicates that a LEFT SHIFT is Present. MCH (RBC) [Entitic mass] 29.1 pg 27.0-32.[address] [facility] Nucleated RBC/100 WBC (Bld) [Ratio] 0 % 0-[address] [facility] MCHC Auto (RBC) [Mass/Vol]Or dered By: Dr. Noel on 06-11-2022 MCHC (RBC) [Mass/Vol] 32.5 g/dL 32-36 [facility] No Panel InformationOrdered By: Dr. Noel on 06-11-2022 Estimated GFR (MDRD) Amer 80 mL/min >[address] [facility] Comment on above: GFR Calc Estimated GFR (MDRD) Non-Af Amer 66 mL/min >[address] [facility] Comment on above: Non- GFR Calc Free Triiodothyronine (T3) pg/dL 2.6 pg/mL 2.18-3.[address] [facility] Thyroid Stimulating Hormone (TSH) 8.13 uIU/mL 0.358-3.[address] [facility] Vitamin D 25-Hydroxy 24.6 ng/mL [facility] Comment on above: Vitamin D 25(OH) Sta tus Range Deficiency <20 ng/mL (50nmol/L) Insufficiency 20 - 30 ng/mL (50 - 75 nmol/L) Sufficiency 30 - 100 ng/mL (75 - 250 nmol/L) Toxicity >100 ng/mL (>250 nmol/L) Platelets bldOrdered By: Dr. Noel on 06-11-2022 Platelets (Bld) [#/Vol] 316 10*3/uL 150-[address] [facility] Serum or plasma albumin betsy urement (mass/volume)Ordered By: Dr. Noel on 06-11-2022 Albumin [Mass/Vol] 3.3 g/dL 3.2-5.0 [facility] Serum or plasma albumin/glob ulin mass ratioOrdered By: Dr. Noel on 06-11-2022 Albumin/Globulin [Mass ratio] 0.8 {ratio} 0.9-2.[address] [facility] Serum or plasma calcium betsy urement (mass/volume)Ordered By: Dr. Noel on 06-11-2022 Calcium [Mass/Vol] 9.1 mg/dL 8.5-10.1 [facility] Serum or plasma cholesterol in HDL measurement (mass/volume)Ordered By: Rustam Francois on 06-11-2022 Cholesterol in HDL [Mass/Vol] 51 mg/dL >[address] [facility] Comment on above: The drugs N-Acetylcy steine and Metamizole may falsely depress this assay. Reference Range HDL <40 mg/dL Low HDL Cholesterol HDL >or= 60 mg/dL High HDL Cholesterol Serum or plasma cholesterol in VLDL measurement (mass/volume)Ordered By: Rustam Francois on 06-11-2022 Cholesterol in VLDL [Mass/Vol] 42 mg/dL 5-[address] [facility] Serum or plasma creatinine m easurement (mass/volume)Ordered By: Dr. Noel on 06-11-2022 Creatinine [Mass/Vol] 0.89 mg/dL 0.55-1.02 [facility] Comment on above: The validity of the calculated GFR & GFRAA in patients over 70 years has not been determined. Clinical correlation is essential. Serum or plasma low density lipoprotein (LDL) cholesterol measurement (mass/volume)Ordered By: Rustam Francois on 06-11-2022 Cholesterol in LDL [Mass/Vol] 65 mg/dL 0-[address] [facility] Serum or plasma urea nitroge n measurement (mass/volume)Ordered By: Dr. Noel on 06-11-2022 Urea nitrogen [Mass/Vol] 19 mg/dL 7-[address] [facility] Thin prep Papanicolaou smear with manual screeningOrdered By: Dr. Noel on 06-11-2022 Thin prep Papanicolaou smear with manual screening 19 U/L 15-[address] [facility] Thin prep Papanicolaou smear with manual screening 5 5-[address] [facility] Laboratory - Hematology and Cell countson 05-16-2022 HbA1c (Bld) [Mass fraction] 10.0 % 4.2-6.[address] [facility] Absolute lymphocyte counton 01-21-2022 Lymphocytes Auto (Unsp spec) [#/Vol] 2.10 10*3/uL 0.83-4.[address] [facility] Work Phone: Basophil percentageon 2021 Basophils/100 WBC (Bld) 0.6 % 0-[address] [facility] Work Phone: Chloride [Moles/Vol] 98 mmol/L 98-107 [facility] Work Phone: Eosinophils/100 WBC (Bld) 1.8 % 0-[address] [facility] Work Phone: Glucose [Mass/Vol] 208 mg/dL 74-106 [facility] Work Phone: Comment on above: Glucose result great er than or equal to 200 mg/dLsuggests DIABETES MELLITUS per A.D.A. criteria. Neutrophils (Bld) [#/Vol] 12.6 10*3/uL 2.0-7.[address] [facility] Work Phone: Neutrophils/100 WBC (Bld) 77.5 % 47-[address] [facility] Work Phone: Potassium [Moles/Vol] 4.1 mmol/L 3.5-5.1 [facility] Work Phone: Sodium [Moles/Vol] 134 mmol/L 136-145 [facility] Work Phone: WBC (Bld) [#/Vol] 16.3 10*3/uL 4.4-11.0 [facility]: Blood erythrocytes count (nu mber/volume)on 01-21-2022 RBC (Bld) [#/Vol] 4.75 10*6/uL 4.2-5.4 [facility] Work Phone: Blood hemoglobin measurement (mass/volume)on 01-21-2022 Hemoglobin (Bld) [Mass/Vol] 13.6 g/dL 12.0-15.[address] [facility] Work Phone: Blood lymphocytes/100 leukoc yteson 01-21-2022 Lymphocytes/100 WBC (Bld) 12.9 % 19-[address] [facility] Work Phone: Blood monocytes/100 leukocyt eson 01-21-2022 Monocytes/100 WBC (Bld) 6.2 % 0-[address] [facility] Work Phone: Blood platelet mean volumeon 01-21-2022 Platelet mean volume (Bld) [Entitic vol] 10.3 fL 6.2-12.[address] [facility] Work Phone: Determination of erythrocyte mean corpuscular volume (MCV)on 01-21-2022 MCV (RBC) [Entitic vol] 90.9 fL 81-[address] [facility] Work Phone: Glucose Glucometer (BldC) [M ass/Vol]on 01-21-2022 Glucose [Mass/Vol] 215 mg/dL 74-106 [facility] Work Phone: Comment on above: MANAGEMENT OF PATIEN T CARE PER NURSING PROTOCOL Hematocrit Auto (Bld) [Volum e fraction]on 01-21-2022 Hematocrit (Bld) [Volume fraction] 43.2 % 37-[address] [facility] Work Phone: Laboratory - Chemistry and C hemistry - challengeon 01-21-2022 CO2 [Moles/Vol] 29.0 mmol/L 21.0-32.[address] [facility] Work Phone: Urea nitrogen/Creatinine [Mass ratio] 18.6 mg/mg 10-[address] [facility] Work Phone: [phone] Laboratory - Hematology and Cell countson 01-21-2022 Erythrocyte distribution width (RBC) [Entitic vol] 42.5 fL 35.1-43.[address] [facility] Work Phone: [phone] Erythrocyte distribution width (RBC) [Ratio] 12.8 % 11.6-14.[address] [facility] Work Phone: Immature granulocytes/100 WBC (Bld) 1.000 % 0.0-0.[address] [facility] Work Phone: Comment on above: IG% - Immature Granu locytes (promyelocytes, myelocytes and metamyelocytes) > 1% indicates that a LEFT SHIFT is Present. MCH (RBC) [Entitic mass] 28.6 pg 27.0-32.[address] [facility] Work Phone: Nucleated RBC/100 WBC (Bld) [Ratio] 0 % 0-[address] [facility] Work Phone: MCHC Auto (RBC) [Mass/Vol]on 01-21-2022 MCHC (RBC) [Mass/Vol] 31.5 g/dL 32-36 [facility] Work Phone: No Panel Informationon 01-21 D-Dimer Quantitative (PE/DVT) 1.38 FEU/ug/m 0.27-0.[address] [facility] Work Phone: Comment on above: D-Dimer ELEVATED (>0 .49): Additional studies and clinicalassessments are indicated to conclude diagnosis of:Deep Vein Thrombosis (DVT) or Pulmonary Embolism (PE)CRITICAL VALUE VERIFIED. CALLED TO JEWELL RODRIGEZ01/21/22 164Oliverio Woods.RESULTS READ BACK BY SAME . Estimated Creatinine Clearance Calc 45.50 ml/min [facility] Work Phone: Estimated GFR (MDRD) Amer 78 mL/min >[address] [facility] Work Phone: Comment on above: GFR Calc Estimated GFR (MDRD) Non-Af Amer 65 mL/min >[address] [facility] Work Phone: Comment on above: Non- GFR Calc Troponin I High Sensitivity 17 pg/mL 3.0-54.[address] [facility] Work Phone: Comment on above: Please Note: [place] t Units and Gender Specific Reference Ranges. For more information see Policy Stat Procedure [place] High Sensitivity Troponin (TNIH) and attachments. Platelets bldon 01-21-2022 Platelets (Bld) [#/Vol] 374 10*3/uL 150-[address] [facility] Work Phone: Serum or plasma calcium betsy urement (mass/volume)on 01-21-2022 Calcium [Mass/Vol] 10.3 mg/dL 8.5-10.1 [facility] Work Phone: Serum or plasma creatinine m easurement (mass/volume)on 01-21-2022 Creatinine [Mass/Vol] 0.91 mg/dL 0.55-1.02 [facility] Work Phone: Comment on above: The validity of the calculated GFR & GFRAA in patients over 70 years has not been determined. Clinical correlation is essential. Serum or plasma urea nitroge n measurement (mass/volume)on 01-21-2022 Urea nitrogen [Mass/Vol] 17 mg/dL 7-[address] [facility] Work Phone: Thin prep Papanicolaou smear with manual screeningon 01-21-2022 Thin prep Papanicolaou smear with manual screening 7 5-[address] [facility] Work Phone: [phone] Basophil percentageon 2021 Bilirubin [Mass/Vol] 0.50 mg/dL 0.20-1.00 [facility] Work Phone: Comment on above: For patients on eltr ombopag therapy, use of Dimension [place] TBIL is not recommended. Chloride [Moles/Vol] 102 mmol/L 98-107 [facility] Work Phone: [phone] Glucose [Mass/Vol] 109 mg/dL 74-106 [facility] Work Phone: Comment on above: Fasting Glucose resu lt from 100 to 125 mg/dL suggests IMPAIRED HOMEOSTASIS per A.D.A. criteria. Potassium [Moles/Vol] 4.2 mmol/L 3.5-5.1 [facility] Work Phone: [phone] Protein [Mass/Vol] 7.6 g/dL 6.4-8.2 [facility] Work Phone: [phone] Sodium [Moles/Vol] 136 mmol/L 136-145 [facility] Work Phone: Laboratory - Chemistry and C hemistry - challengeon 01-11-2022 ALP [Catalytic activity/Vol] 94 U/L 45-[address] [facility] Work Phone: ALT [Catalytic activity/Vol] 20 U/L 13-[address] [facility] Work Phone: [phone] CO2 [Moles/Vol] 29.0 mmol/L 21.0-32.[address] [facility] Work Phone: [phone] Free T4 [Mass/Vol] 0.90 ng/dL 0.76-1.46 [facility] Work Phone: Globulin (S) [Mass/Vol] 4.2 g/dL 2.2-4.[address] [facility] Work Phone: [phone] Magnesium [Mass/Vol] 2.0 mg/dL 1.6-2.6 [facility] Work Phone: [phone] Urea nitrogen/Creatinine [Mass ratio] 22.6 mg/mg 10-[address] [facility] Work Phone: No Panel Informationon 01-11 Estimated GFR (MDRD) Amer 98 mL/min >[address] [facility] Work Phone: Comment on above: GFR Calc Estimated GFR (MDRD) Non-Af Amer 81 mL/min >[address] [facility] Work Phone: Comment on above: Non- GFR Calc Free Triiodothyronine (T3) pg/dL 3.5 pg/mL 2.18-3.[address] [facility] Work Phone: [phone] Thyroid Stimulating Hormone (TSH) 2.25 uIU/mL 0.358-3.[address] [facility] Work Phone: Vitamin D 25-Hydroxy 19.4 ng/mL [facility] Work Phone: Comment on above: Vitamin D 25(OH) Sta tus Range Deficiency <20 ng/mL (50nmol/L) Insufficiency 20 - 30 ng/mL (50 - 75 nmol/L) Sufficiency 30 - 100 ng/mL (75 - 250 nmol/L) Toxicity >100 ng/mL (>250 nmol/L) Serum or plasma albumin betsy urement (mass/volume)on 01-11-2022 Albumin [Mass/Vol] 3.4 g/dL 3.2-5.0 [facility] Work Phone: Serum or plasma albumin/glob ulin mass ratioon 01-11-2022 Albumin/Globulin [Mass ratio] 0.8 {ratio} 0.9-2.[address] [facility] Work Phone: Serum or plasma calcium betsy urement (mass/volume)on 01-11-2022 Calcium [Mass/Vol] 9.5 mg/dL 8.5-10.1 [facility] Work Phone: Serum or plasma creatinine m easurement (mass/volume)on 01-11-2022 Creatinine [Mass/Vol] 0.75 mg/dL 0.55-1.02 [facility] Work Phone: Comment on above: The validity of the calculated GFR & GFRAA in patients over 70 years has not been determined. Clinical correlation is essential. Serum or plasma urea nitroge n measurement (mass/volume)on 01-11-2022 Urea nitrogen [Mass/Vol] 17 mg/dL 7-[address] [facility] Work Phone: Thin prep Papanicolaou smear with manual screeningon 01-11-2022 Thin prep Papanicolaou smear with manual screening 14 U/L 15-[address] [facility] Work Phone: Thin prep Papanicolaou smear with manual screening 5 5-[address] [facility] Work Phone: XR CHEST 2 VIEWSon [...] 12/28/2021 12:02:56 AM Ordering Provider: JUAN JUAREZ [facility] ([place]) XR CHEST 2 VIEWSon XR CHEST 2 [...] 12/15/2021 8:57:36 AM Ordering Provider: JUAN JUAREZ [facility] ([place]) .GFRon 12-14-2021 GFR >60 Normal [facility] ([place]) Comment on above: Result Comment: GFR Population [...] GLURP, CLRP, NARP, BGRP, KRP, CARP #### [address] [address] GFR Non- >60 Normal [facility] ([place]) Comment on above: Result Comment: GFR Population [...] GLURP, CLRP, NARP, BGRP, KRP, CARP #### [address] [address] BMPon 12-14-2021 BUN/Creatinine Ratio 32.6 ratio High 10.0-22.0 [facility] ([place]) Comment on above: Performed By: #### H CTRP, HGBRP, GLURP, CLRP, NARP, BGRP, KRP, CARP #### [address] [address] Calcium [Mass/Vol] 10.0 mg/dL Normal 8.7-10.4 [facility] ([place]) Comment on above: Performed By: #### H CTRP, HGBRP, GLURP, CLRP, NARP, BGRP, KRP, CARP #### [address] [address] Chloride [Moles/Vol] 99 mmol/L Normal 98-110 [facility] ([place]) Comment on above: Performed By: #### H CTRP, HGBRP, GLURP, CLRP, NARP, BGRP, KRP, CARP #### [address] [address] CO2 [Moles/Vol] 32 mmol/L Normal 22-32 [facility] ([place]) Comment on above: Performed By: #### H CTRP, HGBRP, GLURP, CLRP, NARP, BGRP, KRP, CARP #### [address] [address] Creatinine [Mass/Vol] 0.86 mg/dL Normal 0.50-1.20 [facility] ([place]) Comment on above: Performed By: #### H CTRP, HGBRP, GLURP, CLRP, NARP, BGRP, KRP, CARP #### [address] [address] Electrolyte Balance 6.0 mEq/L Normal 4.0-15.0 [facility] ([place]) Comment on above: Performed By: #### H CTRP, HGBRP, GLURP, CLRP, NARP, BGRP, KRP, CARP #### [address] [address] Glucose [Mass/Vol] 268 mg/dL High 82-115 [facility] ([place]) Comment on above: Performed By: #### H CTRP, HGBRP, GLURP, CLRP, NARP, BGRP, KRP, CARP #### [address] [address] Potassium [Moles/Vol] 5.0 mmol/L Normal 3.5-5.0 [facility] ([place]) Comment on above: Result Comment: Spec imen slightly hemolyzed. Performed By: #### H CTRP, HGBRP, GLURP, CLRP, NARP, BGRP, KRP, CARP #### [address] [address] Sodium [Moles/Vol] 137 mmol/L Normal 136-145 [facility] ([place]) Comment on above: Performed By: #### H CTRP, HGBRP, GLURP, CLRP, NARP, BGRP, KRP, CARP #### [address] [address] Urea nitrogen [Mass/Vol] 28.0 mg/dL High 8.0-22.0 [facility] ([place]) Comment on above: Performed By: #### H CTRP, HGBRP, GLURP, CLRP, NARP, BGRP, KRP, CARP #### [address] [address] LABORATORYOrdered By: SYSTEM SYSTEM on 12-13-2021 Calcium [...] AM Ordering Provider: NAT Mercado [facility] ([place]) .Auto Diffon 11-29-2021 Basophil, Absolute 0.1 10 3/mcL Normal 0.0-0.3 [facility] ([place]) Comment on above: Performed By: #### H CTRP, HGBRP, GLURP, CLRP, NARP, BGRP, KRP, CARP #### [address] [address] Basophils/100 WBC (Bld) 0.5 % Normal 0.0-2.5 A [facility] ([place]) Comment on above: Performed By: #### H CTRP, HGBRP, GLURP, CLRP, NARP, BGRP, KRP, CARP #### [address] [address] Eosinophil, Absolute 0.7 10 3/mcL Normal 0.0-0.7 Pending [facility] to [facility] ([place]) Comment on above: Performed By: #### H CTRP, HGBRP, GLURP, CLRP, NARP, BGRP, KRP, CARP #### [address] [address] Eosinophils/100 WBC (Bld) 4.1 % Normal 0.0-6.0 [facility] ([place]) Comment on above: Performed By: #### H CTRP, HGBRP, GLURP, CLRP, NARP, BGRP, KRP, CARP #### [address] [address] Lymphocyte, Absolute 2.5 10 3/mcL Normal 0.9-4.3 Pending sale to [facility] ([place]) Comment on above: Performed By: #### H CTRP, HGBRP, GLURP, CLRP, NARP, BGRP, KRP, CARP #### [address] [address] Lymphocytes/100 WBC (Bld) 14.6 % Low 20.0-40.0 [facility] ([place]) Comment on above: Performed By: #### H CTRP, HGBRP, GLURP, CLRP, NARP, BGRP, KRP, CARP #### [address] [address] Monocyte, Absolute 1.2 10 3/mcL Normal 0.1-1.4 [facility] ([place]) Comment on above: Performed By: #### H CTRP, HGBRP, GLURP, CLRP, NARP, BGRP, KRP, CARP #### [address] [address] Monocytes/100 WBC (Bld) 6.8 % Normal 2.0-13.0 A [facility] ([place]) Comment on above: Performed By: #### H CTRP, HGBRP, GLURP, CLRP, NARP, BGRP, KRP, CARP #### [address] [address] Neutrophils/100 WBC (Bld) 74.0 % Normal 50.0-75.0 [facility] ([place]) Comment on above: Performed By: #### H CTRP, HGBRP, GLURP, CLRP, NARP, BGRP, KRP, CARP #### [address] [address] .GFRon 11-29-2021 GFR Non- >60 Normal [facility] ([place]) Comment on above: Result Comment: GFR Population [...] GLURP, CLRP, NARP, BGRP, KRP, CARP #### [address] [address] GFR >60 Normal [facility] ([place]) Comment on above: Result Comment: GFR Population [...] GLURP, CLRP, NARP, BGRP, KRP, CARP #### [address] [address] .NEUABSon 11-29-2021 Neutrophil, Absolute 12.4 10 3/mcL High 2.3-8.1 A [facility] ([place]) Comment on above: Performed By: #### H CTRP, HGBRP, GLURP, CLRP, NARP, BGRP, KRP, CARP #### [address] [address] BMPon 11-29-2021 BUN/Creatinine Ratio 23.2 ratio High 10.0-22.0 [facility] ([place]) Comment on above: Performed By: #### H CTRP, HGBRP, GLURP, CLRP, NARP, BGRP, KRP, CARP #### [address] [address] Calcium [Mass/Vol] 9.4 mg/dL Normal 8.7-10.4 [facility] ([place]) Comment on above: Performed By: #### H CTRP, HGBRP, GLURP, CLRP, NARP, BGRP, KRP, CARP #### [address] [address] Chloride [Moles/Vol] 92 mmol/L Low 98-110 [facility] ([place]) Comment on above: Performed By: #### H CTRP, HGBRP, GLURP, CLRP, NARP, BGRP, KRP, CARP #### [address] [address] CO2 [Moles/Vol] 34 mmol/L High 22-32 [facility] ([place]) Comment on above: Performed By: #### H CTRP, HGBRP, GLURP, CLRP, NARP, BGRP, KRP, CARP #### [address] [address] Creatinine [Mass/Vol] 0.82 mg/dL Normal 0.50-1.20 [facility] ([place]) Comment on above: Performed By: #### H CTRP, HGBRP, GLURP, CLRP, NARP, BGRP, KRP, CARP #### [address] [address] Electrolyte Balance 8.0 mEq/L Normal 4.0-15.0 [facility] ([place]) Comment on above: Performed By: #### H CTRP, HGBRP, GLURP, CLRP, NARP, BGRP, KRP, CARP #### [place] [address] Glucose [Mass/Vol] 168 mg/dL High 82-115 [facility] ([place]) Comment on above: Performed By: #### H CTRP, HGBRP, GLURP, CLRP, NARP, BGRP, KRP, CARP #### [place] [id number] Potassium [Moles/Vol] 3.9 mmol/L Normal 3.5-5.0 [facility] ([place]) Comment on above: Performed By: #### H CTRP, HGBRP, GLURP, CLRP, NARP, BGRP, KRP, CARP #### [place] [address] Sodium [Moles/Vol] 134 mmol/L Low 136-145 [facility] ([place]) Comment on above: Performed By: #### H CTRP, HGBRP, GLURP, CLRP, NARP, BGRP, KRP, CARP #### [place] [id number] Urea nitrogen [Mass/Vol] 19.0 mg/dL Normal 8.0-22.0 [facility] ([place]) Comment on above: Performed By: #### H CTRP, HGBRP, GLURP, CLRP, NARP, BGRP, KRP, CARP #### [address] [address] CBCon 11-29-2021 Erythrocyte distribution width (RBC) [Ratio] 14.2 % Normal 11.5-15.5 [facility] ([place]) Comment on above: Performed By: #### H CTRP, HGBRP, GLURP, CLRP, NARP, BGRP, KRP, CARP #### [place] [id number] Hematocrit (Bld) [Volume fraction] 34.6 % Normal 34.0-46.0 [facility] ([place]) Comment on above: Performed By: #### H CTRP, HGBRP, GLURP, CLRP, NARP, BGRP, KRP, CARP #### [place] [address] Hgb 11.4 G/dL Low 12.0-16.0 [facility] ([place]) Comment on above: Performed By: #### H CTRP, HGBRP, GLURP, CLRP, NARP, BGRP, KRP, CARP #### [place] [address] MCH (RBC) [Entitic mass] 29.7 pg Normal 27.0-33.0 [facility] ([place]) Comment on above: Performed By: #### H CTRP, HGBRP, GLURP, CLRP, NARP, BGRP, KRP, CARP #### [place] [address] MCHC 32.9 G/dL Normal 32.0-36.0 [facility] ([place]) Comment on above: Performed By: #### H CTRP, HGBRP, GLURP, CLRP, NARP, BGRP, KRP, CARP #### [place] [address] MCV (RBC) [Entitic vol] 90.5 fL Normal 80.0-99.0 A [facility] ([place]) Comment on above: Performed By: #### H CTRP, HGBRP, GLURP, CLRP, NARP, BGRP, KRP, CARP #### [place] [address] Platelet 365 10 3/mcL Normal 150-450 [facility] ([place]) Comment on above: Performed By: #### H CTRP, HGBRP, GLURP, CLRP, NARP, BGRP, KRP, CARP #### [place] [address] Platelet mean volume (Bld) [Entitic vol] 8.1 fL Normal 6.6-10.5 [facility] ([place]) Comment on above: Performed By: #### H CTRP, HGBRP, GLURP, CLRP, NARP, BGRP, KRP, CARP #### [place] [address] RBC 3.82 10 6/mcL Low 4.10-5.30 [facility] ([place]) Comment on above: Performed By: #### H CTRP, HGBRP, GLURP, CLRP, NARP, BGRP, KRP, CARP #### [facility] [address] [place] [address] WBC 16.8 10 3/mcL High 4.5-10.8 [facility] ([place]) Comment on above: Performed By: #### H CTRP, HGBRP, GLURP, CLRP, NARP, BGRP, KRP, CARP #### [facility] [address] [place] [id number] LABORATORYOrdered By: Dayo Sanabria on 11-29-2021 Blood Glucose Testing Reason Routine (11/29/21 11:55 AM) [facility] Work Phone: Glucose [Mass/Vol] 164 mg/dL Invalid Interpretation Code 82 - 115 mg/dL [facility] Work Phone: Comment on above: Result Comment: LARS Buckley LABORATORYOrdered By: Rodney Nam on 11-29-2021 Blood Glucose Testing Reason Routine (11/29/21 7:28 AM) [facility] Work Phone: Glucose [Mass/Vol] 174 mg/dL Invalid Interpretation Code 82 - 115 mg/dL [facility] Work Phone: LABORATORYOrdered By: SYSTEM SYSTEM [...] 0.1 10 3/mcL Normal 0.0-0.3 [facility] ([place]) Comment on above: Performed By: #### H CTRP, HGBRP, GLURP, CLRP, NARP, BGRP, KRP, CARP #### [address] [address] Basophils/100 WBC (Bld) 0.8 % Normal 0.0-2.5 A [facility] ([place]) Comment on above: Performed By: #### H CTRP, HGBRP, GLURP, CLRP, NARP, BGRP, KRP, CARP #### [address] [address] Eosinophil, Absolute 0.4 10 3/mcL Normal 0.0-0.7 Pending sale to [facility] ([place]) Comment on above: Performed By: #### H CTRP, HGBRP, GLURP, CLRP, NARP, BGRP, KRP, CARP #### [address] [address] Eosinophils/100 WBC (Bld) 2.9 % Normal 0.0-6.0 [facility] ([place]) Comment on above: Performed By: #### H CTRP, HGBRP, GLURP, CLRP, NARP, BGRP, KRP, CARP #### [address] [address] Lymphocyte, Absolute 2.0 10 3/mcL Normal 0.9-4.3 Pending sale to [facility] ([place]) Comment on above: Performed By: #### H CTRP, HGBRP, GLURP, CLRP, NARP, BGRP, KRP, CARP #### [address] [address] Lymphocytes/100 WBC (Bld) 13.5 % Low 20.0-40.0 [facility] ([place]) Comment on above: Performed By: #### H CTRP, HGBRP, GLURP, CLRP, NARP, BGRP, KRP, CARP #### [address] [address] Monocyte, Absolute 1.1 10 3/mcL Normal 0.1-1.4 [facility] ([place]) Comment on above: Performed By: #### H CTRP, HGBRP, GLURP, CLRP, NARP, BGRP, KRP, CARP #### [address] [address] Monocytes/100 WBC (Bld) 7.7 % Normal 2.0-13.0 [facility] ([place]) Comment on above: Performed By: #### H CTRP, HGBRP, GLURP, CLRP, NARP, BGRP, KRP, CARP #### [address] [address] Neutrophils/100 WBC (Bld) 75.1 % High 50.0-75.0 [facility] ([place]) Comment on above: Performed By: #### H CTRP, HGBRP, GLURP, CLRP, NARP, BGRP, KRP, CARP #### [address] [address] .GFRon 11-28-2021 GFR >60 Normal [facility] ([place]) Comment on above: Result Comment: GFR Population [...] GLURP, CLRP, NARP, BGRP, KRP, CARP #### [place] [address] GFR Non- >60 Normal [facility] ([place]) Comment on above: Result Comment: GFR Population [...] GLURP, CLRP, NARP, BGRP, KRP, CARP #### [address] [address] .NEUABSon 11-28-2021 Neutrophil, Absolute 11.2 10 3/mcL High 2.3-8.1 A [facility] ([place]) Comment on above: Performed By: #### H CTRP, HGBRP, GLURP, CLRP, NARP, BGRP, KRP, CARP #### [address] [address] [facility] 11-28-2021 Barometric Pressure 701 mmHg Normal [facility] ([place]) Comment on above: Performed By: #### H CTRP, HGBRP, GLURP, CLRP, NARP, BGRP, KRP, CARP #### [address] [address] Base excess Calc (Bld) [Moles/Vol] 9.8 mmol/L Normal [facility] ([place]) Comment on above: Performed By: #### H CTRP, HGBRP, GLURP, CLRP, NARP, BGRP, KRP, CARP #### [address] [address] CO2 [Moles/Vol] 36.7 mmol/L High 22.0-30.0 [facility] ([place]) Comment on above: Performed By: #### H CTRP, HGBRP, GLURP, CLRP, NARP, BGRP, KRP, CARP #### [address] [address] HCO3 (Bld) [Moles/Vol] 35.1 mmol/L High 21.0-29.0 A [facility] ([place]) Comment on above: Performed By: #### H CTRP, HGBRP, GLURP, CLRP, NARP, BGRP, KRP, CARP #### [address] [address] Oxygen (Bld) [Partial pressure] 70.5 mm[Hg] Low 74.0-108.0 [facility] ([place]) Comment on above: Performed By: #### H CTRP, HGBRP, GLURP, CLRP, NARP, BGRP, KRP, CARP #### [address] [address] Oxygen saturation in Blood 94.9 % Normal 92.0-96.0 [facility] ([place]) Comment on above: Performed By: #### H CTRP, HGBRP, GLURP, CLRP, NARP, BGRP, KRP, CARP #### [address] [address] pCO2 50.4 mmHg High 32.0-46.0 [facility] ([place]) Comment on above: Performed By: #### H CTRP, HGBRP, GLURP, CLRP, NARP, BGRP, KRP, CARP #### [address] [address] pH (Bld) 7.461 [pH] High 7.380-7.460 [facility] ([place]) Comment on above: Performed By: #### H CTRP, HGBRP, GLURP, CLRP, NARP, BGRP, KRP, CARP #### [address] [address] BMPon 11-28-2021 BUN/Creatinine Ratio 23.3 ratio High 10.0-22.0 [facility] ([place]) Comment on above: Performed By: #### H CTRP, HGBRP, GLURP, CLRP, NARP, BGRP, KRP, CARP #### [address] [address] Calcium [Mass/Vol] 9.0 mg/dL Normal 8.7-10.4 [facility] ([place]) Comment on above: Performed By: #### H CTRP, HGBRP, GLURP, CLRP, NARP, BGRP, KRP, CARP #### [address] [address] Chloride [Moles/Vol] 92 mmol/L Low 98-110 [facility] ([place]) Comment on above: Performed By: #### H CTRP, HGBRP, GLURP, CLRP, NARP, BGRP, KRP, CARP #### [address] [address] CO2 [Moles/Vol] 37 mmol/L High 22-32 [facility] ([place]) Comment on above: Performed By: #### H CTRP, HGBRP, GLURP, CLRP, NARP, BGRP, KRP, CARP #### [address] [address] Creatinine [Mass/Vol] 0.90 mg/dL Normal 0.50-1.20 [facility] ([place]) Comment on above: Performed By: #### H CTRP, HGBRP, GLURP, CLRP, NARP, BGRP, KRP, CARP #### [address] [address] Electrolyte Balance 6.0 mEq/L Normal 4.0-15.0 [facility] ([place]) Comment on above: Performed By: #### H CTRP, HGBRP, GLURP, CLRP, NARP, BGRP, KRP, CARP #### [address] [address] Glucose [Mass/Vol] 208 mg/dL High 82-115 [facility] ([place]) Comment on above: Performed By: #### H CTRP, HGBRP, GLURP, CLRP, NARP, BGRP, KRP, CARP #### [address] [address] Potassium [Moles/Vol] 3.7 mmol/L Normal 3.5-5.0 [facility] ([place]) Comment on above: Performed By: #### H CTRP, HGBRP, GLURP, CLRP, NARP, BGRP, KRP, CARP #### [address] [address] Sodium [Moles/Vol] 135 mmol/L Low 136-145 [facility] ([place]) Comment on above: Performed By: #### H CTRP, HGBRP, GLURP, CLRP, NARP, BGRP, KRP, CARP #### [address] [address] Urea nitrogen [Mass/Vol] 21.0 mg/dL Normal 8.0-22.0 [facility] ([place]) Comment on above: Performed By: #### H CTRP, HGBRP, GLURP, CLRP, NARP, BGRP, KRP, CARP #### [address] [address] CBCon 11-28-2021 Erythrocyte distribution width (RBC) [Ratio] 14.1 % Normal 11.5-15.5 [facility] ([place]) Comment on above: Performed By: #### H CTRP, HGBRP, GLURP, CLRP, NARP, BGRP, KRP, CARP #### [place] [address] Hematocrit (Bld) [Volume fraction] 34.4 % Normal 34.0-46.0 [facility] ([place]) Comment on above: Performed By: #### H CTRP, HGBRP, GLURP, CLRP, NARP, BGRP, KRP, CARP #### [place] [address] Hgb 11.2 G/dL Low 12.0-16.0 [facility] ([place]) Comment on above: Performed By: #### H CTRP, HGBRP, GLURP, CLRP, NARP, BGRP, KRP, CARP #### [place] [address] MCH (RBC) [Entitic mass] 29.5 pg Normal 27.0-33.0 [facility] ([place]) Comment on above: Performed By: #### H CTRP, HGBRP, GLURP, CLRP, NARP, BGRP, KRP, CARP #### [place] [address] MCHC 32.6 G/dL Normal 32.0-36.0 [facility] ([place]) Comment on above: Performed By: #### H CTRP, HGBRP, GLURP, CLRP, NARP, BGRP, KRP, CARP #### [place] [id number] MCV (RBC) [Entitic vol] 90.5 fL Normal 80.0-99.0 [facility] ([place]) Comment on above: Performed By: #### H CTRP, HGBRP, GLURP, CLRP, NARP, BGRP, KRP, CARP #### [place] [address] Platelet 353 10 3/mcL Normal 150-450 [facility] ([place]) Comment on above: Performed By: #### H CTRP, HGBRP, GLURP, CLRP, NARP, BGRP, KRP, CARP #### [place] [address] Platelet mean volume (Bld) [Entitic vol] 7.9 fL Normal 6.6-10.5 [facility] ([place]) Comment on above: Performed By: #### H CTRP, HGBRP, GLURP, CLRP, NARP, BGRP, KRP, CARP #### [place] [address] RBC 3.80 10 6/mcL Low 4.10-5.30 [facility] ([place]) Comment on above: Performed By: #### H CTRP, HGBRP, GLURP, CLRP, NARP, BGRP, KRP, CARP #### [place] [address] WBC 14.9 10 3/mcL High 4.5-10.8 [facility] ([place]) Comment on above: Performed By: #### H CTRP, HGBRP, GLURP, CLRP, NARP, BGRP, KRP, CARP #### [place] [address] CVFLURVon 11-28-2021 Date of Onset [id number] Invalid Interpretation Code [facility] ([place]) Comment on above: Performed By: #### H CTRP, HGBRP, GLURP, CLRP, NARP, BGRP, KRP, CARP #### [place] [address] Employed in Healthcare No Normal Pending [facility] to [facility] ([place]) Comment on above: Performed By: #### H CTRP, HGBRP, GLURP, CLRP, NARP, BGRP, KRP, CARP #### [place] [address] First Test No Normal [facility] ([place]) Comment on above: Performed By: #### H CTRP, HGBRP, GLURP, CLRP, NARP, BGRP, KRP, CARP #### [place] [address] FLU A PCR Negative Normal Negative [facility] ([place]) Comment on above: Result Comment: Note s Performed By: #### H CTRP, HGBRP, GLURP, CLRP, NARP, BGRP, KRP, CARP #### [place] [address] FLU B PCR Negative Normal Negative [facility] ([place]) Comment on above: Result Comment: Note s Performed By: #### H CTRP, HGBRP, GLURP, CLRP, NARP, BGRP, KRP, CARP #### [place] [address] Hospitalized Yes [facility] ([place]) Comment on above: Performed By: #### H CTRP, HGBRP, GLURP, CLRP, NARP, BGRP, KRP, CARP #### [place] [address] ICU No [facility] ([place]) Comment on above: Performed By: #### H CTRP, HGBRP, GLURP, CLRP, NARP, BGRP, KRP, CARP #### [place] [address] Not [facility] ([place] Comment on above: Performed By: #### H CTRP, HGBRP, GLURP, CLRP, NARP, BGRP, KRP, CARP #### [place] [address] Resides in Congregate Care Setting No [facility] ([place] Comment on above: Performed By: #### H CTRP, HGBRP, GLURP, CLRP, NARP, BGRP, KRP, CARP #### [place] [address] RSV PCR Negative Normal Negative [facility] ([place]) Comment on above: Result Comment: Note s Performed By: #### H CTRP, HGBRP, GLURP, CLRP, NARP, BGRP, KRP, CARP #### [address] [address] SARS-CoV-2 (COVID-19) RNA SLOAN+probe Ql (Unsp spec) Negative Normal Negative [facility] ([place]) Comment on above: Result Comment: Note s [...] GLURP, CLRP, NARP, BGRP, KRP, CARP #### [address] [address] Symptomatic as Defined by CDC No Normal [facility] ([place]) Comment on above: Performed By: #### H CTRP, HGBRP, GLURP, CLRP, NARP, BGRP, KRP, CARP #### [address] [address] LABORATORYOrdered By: Coleen Mckeon on 11-28-2021 Glucose [Mass/Vol] 159 mg/dL Invalid Interpretation Code 82 - 115 mg/dL [facility] Work Phone: LABORATORYOrdered By: Betty Awad on 11-28-2021 Date of Onset [id number] Invalid Interpretation Code AH Auto Viro/Sero SS [...] Glucose Testing Reason Routine (11/28/21 4:40 PM) [facility] Work Phone: LABORATORYOrdered By: SYSTEM SYSTEM [...] AM Ordering Provider: KAELYN Mercado [facility] ([place]) .Auto Diffon 11-27-2021 Basophil, Absolute 0.1 10 3/mcL Normal 0.0-0.3 [facility] ([place]) Comment on above: Performed By: #### H CTRP, HGBRP, GLURP, CLRP, NARP, BGRP, KRP, CARP #### [address] [address] Basophils/100 WBC (Bld) 0.5 % Normal 0.0-2.5 A [facility] ([place]) Comment on above: Performed By: #### H CTRP, HGBRP, GLURP, CLRP, NARP, BGRP, KRP, CARP #### [address] [address] Eosinophil, Absolute 0.4 10 3/mcL Normal 0.0-0.7 Pending sale to [facility] ([place]) Comment on above: Performed By: #### H CTRP, HGBRP, GLURP, CLRP, NARP, BGRP, KRP, CARP #### [address] [address] Eosinophils/100 WBC (Bld) 2.0 % Normal 0.0-6.0 [facility] ([place]) Comment on above: Performed By: #### H CTRP, HGBRP, GLURP, CLRP, NARP, BGRP, KRP, CARP #### [address] [address] Lymphocyte, Absolute 2.2 10 3/mcL Normal 0.9-4.3 Pending sale to [facility] ([place]) Comment on above: Performed By: #### H CTRP, HGBRP, GLURP, CLRP, NARP, BGRP, KRP, CARP #### [address] [address] Lymphocytes/100 WBC (Bld) 11.6 % Low 20.0-40.0 [facility] ([place]) Comment on above: Performed By: #### H CTRP, HGBRP, GLURP, CLRP, NARP, BGRP, KRP, CARP #### [address] [address] Monocyte, Absolute 1.3 10 3/mcL Normal 0.1-1.4 [facility] ([place]) Comment on above: Performed By: #### H CTRP, HGBRP, GLURP, CLRP, NARP, BGRP, KRP, CARP #### [address] [address] Monocytes/100 WBC (Bld) 6.7 % Normal 2.0-13.0 [facility] ([place]) Comment on above: Performed By: #### H CTRP, HGBRP, GLURP, CLRP, NARP, BGRP, KRP, CARP #### [address] [address] Neutrophils/100 WBC (Bld) 79.2 % High 50.0-75.0 [facility] ([place]) Comment on above: Performed By: #### H CTRP, HGBRP, GLURP, CLRP, NARP, BGRP, KRP, CARP #### [address] [address] .GFRon 11-27-2021 GFR >60 Normal [facility] ([place]) Comment on above: Result Comment: GFR Population [...] GLURP, CLRP, NARP, BGRP, KRP, CARP #### [place] [address] GFR Non- >60 Normal [facility] ([place]) Comment on above: Result Comment: GFR Population [...] GLURP, CLRP, NARP, BGRP, KRP, CARP #### [address] [address] .NEUABSon 11-27-2021 Neutrophil, Absolute 15.1 10 3/mcL High 2.3-8.1 A [facility] ([place]) Comment on above: Performed By: #### H CTRP, HGBRP, GLURP, CLRP, NARP, BGRP, KRP, CARP #### [address] [address] BGon 11-27-2021 Barometric Pressure 733 mmHg Normal [facility] ([place]) Comment on above: Performed By: #### H CTRP, HGBRP, GLURP, CLRP, NARP, BGRP, KRP, CARP #### [place] [address] Base excess Calc (Bld) [Moles/Vol] 10.2 mmol/L Normal [facility] ([place]) Comment on above: Performed By: #### H CTRP, HGBRP, GLURP, CLRP, NARP, BGRP, KRP, CARP #### [place] [address] CO2 [Moles/Vol] 38.8 mmol/L High 22.0-30.0 [facility] ([place]) Comment on above: Performed By: #### H CTRP, HGBRP, GLURP, CLRP, NARP, BGRP, KRP, CARP #### [place] [address] HCO3 (Bld) [Moles/Vol] 37.1 mmol/L High 21.0-29.0 A [facility] ([place]) Comment on above: Performed By: #### H CTRP, HGBRP, GLURP, CLRP, NARP, BGRP, KRP, CARP #### [place] [id number] Oxygen (Bld) [Partial pressure] 74.1 mm[Hg] Normal 74.0-108.0 [facility] ([place]) Comment on above: Performed By: #### H CTRP, HGBRP, GLURP, CLRP, NARP, BGRP, KRP, CARP #### [place] [address] Oxygen saturation in Blood 94.8 % Normal 92.0-96.0 [facility] ([place]) Comment on above: Performed By: #### H CTRP, HGBRP, GLURP, CLRP, NARP, BGRP, KRP, CARP #### [place] [id number] pCO2 58.3 mmHg High 32.0-46.0 [facility] ([place]) Comment on above: Performed By: #### H CTRP, HGBRP, GLURP, CLRP, NARP, BGRP, KRP, CARP #### [place] [address] pH (Bld) 7.421 [pH] Normal 7.380-7.460 [facility] ([place]) Comment on above: Performed By: #### H CTRP, HGBRP, GLURP, CLRP, NARP, BGRP, KRP, CARP #### [place] [address] CBCon 11-27-2021 Erythrocyte distribution width (RBC) [Ratio] 13.6 % Normal 11.5-15.5 [facility] ([place]) Comment on above: Performed By: #### H CTRP, HGBRP, GLURP, CLRP, NARP, BGRP, KRP, CARP #### [place] [address] Hematocrit (Bld) [Volume fraction] 35.1 % Normal 34.0-46.0 [facility] ([place]) Comment on above: Performed By: #### H CTRP, HGBRP, GLURP, CLRP, NARP, BGRP, KRP, CARP #### [place] [address] Hgb 11.6 G/dL Low 12.0-16.0 [facility] ([place]) Comment on above: Performed By: #### H CTRP, HGBRP, GLURP, CLRP, NARP, BGRP, KRP, CARP #### [place] [address] MCH (RBC) [Entitic mass] 29.7 pg Normal 27.0-33.0 [facility] ([place]) Comment on above: Performed By: #### H CTRP, HGBRP, GLURP, CLRP, NARP, BGRP, KRP, CARP #### [place] [address] MCHC 32.9 G/dL Normal 32.0-36.0 [facility] ([place]) Comment on above: Performed By: #### H CTRP, HGBRP, GLURP, CLRP, NARP, BGRP, KRP, CARP #### [place] [address] MCV (RBC) [Entitic vol] 90.3 fL Normal 80.0-99.0 A [facility] ([place]) Comment on above: Performed By: #### H CTRP, HGBRP, GLURP, CLRP, NARP, BGRP, KRP, CARP #### [place] [address] Platelet 322 10 3/mcL Normal 150-450 [facility] ([place]) Comment on above: Performed By: #### H CTRP, HGBRP, GLURP, CLRP, NARP, BGRP, KRP, CARP #### [place] [address] Platelet mean volume (Bld) [Entitic vol] 8.0 fL Normal 6.6-10.5 [facility] ([place]) Comment on above: Performed By: #### H CTRP, HGBRP, GLURP, CLRP, NARP, BGRP, KRP, CARP #### [place] [address] RBC 3.89 10 6/mcL Low 4.10-5.30 [facility] ([place]) Comment on above: Performed By: #### H CTRP, HGBRP, GLURP, CLRP, NARP, BGRP, KRP, CARP #### [place] [address] WBC 19.1 10 3/mcL High 4.5-10.8 [facility] ([place]) Comment on above: Performed By: #### H CTRP, HGBRP, GLURP, CLRP, NARP, BGRP, KRP, CARP #### [address] [address] CMPon 11-27-2021 Albumin Level 3.4 G/dL Normal 3.2-4.8 [facility] ([place]) Comment on above: Performed By: #### H CTRP, HGBRP, GLURP, CLRP, NARP, BGRP, KRP, CARP #### [address] [address] Albumin/Globulin [Mass ratio] 1.0 {ratio} Normal 0.9-1.6 [facility] ([place]) Comment on above: Performed By: #### H CTRP, HGBRP, GLURP, CLRP, NARP, BGRP, KRP, CARP #### [address] [address] ALP [Catalytic activity/Vol] 79 U/L Normal 38-126 [facility] ([place]) Comment on above: Performed By: #### H CTRP, HGBRP, GLURP, CLRP, NARP, BGRP, KRP, CARP #### [address] [address] ALT [Catalytic activity/Vol] 20 U/L Normal 10-49 [facility] ([place]) Comment on above: Performed By: #### H CTRP, HGBRP, GLURP, CLRP, NARP, BGRP, KRP, CARP #### [address] [address] AST [Catalytic activity/Vol] 20 U/L Normal 8-34 [facility] ([place]) Comment on above: Performed By: #### H CTRP, HGBRP, GLURP, CLRP, NARP, BGRP, KRP, CARP #### [address] [address] Bili Total 0.80 mg/dL Normal 0.20-1.20 [facility] ([place]) Comment on above: Result Comment: Use of this assay is not recommended for patients undergoing treatment with eltrombopag due to the potential for falsely elevated results. Performed By: #### H CTRP, HGBRP, GLURP, CLRP, NARP, BGRP, KRP, CARP #### [address] [address] BUN/Creatinine Ratio 21.4 ratio Normal 10.0-22.0 [facility] ([place]) Comment on above: Performed By: #### H CTRP, HGBRP, GLURP, CLRP, NARP, BGRP, KRP, CARP #### [address] [address] Calcium [Mass/Vol] 9.0 mg/dL Normal 8.7-10.4 [facility] ([place]) Comment on above: Performed By: #### H CTRP, HGBRP, GLURP, CLRP, NARP, BGRP, KRP, CARP #### [address] [address] Chloride [Moles/Vol] 96 mmol/L Low 98-110 [facility] ([place]) Comment on above: Performed By: #### H CTRP, HGBRP, GLURP, CLRP, NARP, BGRP, KRP, CARP #### [address] [address] CO2 [Moles/Vol] 33 mmol/L High 22-32 [facility] ([place]) Comment on above: Performed By: #### H CTRP, HGBRP, GLURP, CLRP, NARP, BGRP, KRP, CARP #### [address] [address] Creatinine [Mass/Vol] 0.70 mg/dL Normal 0.50-1.20 [facility] ([place]) Comment on above: Performed By: #### H CTRP, HGBRP, GLURP, CLRP, NARP, BGRP, KRP, CARP #### [address] [address] Electrolyte Balance 6.0 mEq/L Normal 4.0-15.0 [facility] ([place]) Comment on above: Performed By: #### H CTRP, HGBRP, GLURP, CLRP, NARP, BGRP, KRP, CARP #### [address] [address] Globulin 3.4 G/dL Normal 1.5-3.8 [facility] ([place]) Comment on above: Performed By: #### H CTRP, HGBRP, GLURP, CLRP, NARP, BGRP, KRP, CARP #### [address] [address] Glucose [Mass/Vol] 142 mg/dL High 82-115 [facility] ([place]) Comment on above: Performed By: #### H CTRP, HGBRP, GLURP, CLRP, NARP, BGRP, KRP, CARP #### [address] [address] Potassium [Moles/Vol] 4.1 mmol/L Normal 3.5-5.0 [facility] ([place]) Comment on above: Performed By: #### H CTRP, HGBRP, GLURP, CLRP, NARP, BGRP, KRP, CARP #### [address] [address] Sodium [Moles/Vol] 135 mmol/L Low 136-145 [facility] ([place]) Comment on above: Performed By: #### H CTRP, HGBRP, GLURP, CLRP, NARP, BGRP, KRP, CARP #### [address] [address] Total Protein 6.8 G/dL Normal 5.7-8.2 [facility] ([place]) Comment on above: Result Comment: No te - New Reference Range in effect 19 Performed By: #### H CTRP, HGBRP, GLURP, CLRP, NARP, BGRP, KRP, CARP #### [address] [address] Urea nitrogen [Mass/Vol] 15.0 mg/dL Normal 8.0-22.0 [facility] ([place]) Comment on above: Performed By: #### H CTRP, HGBRP, GLURP, CLRP, NARP, BGRP, KRP, CARP #### [place] [address] LABORATORYOrdered By: SYSTEM SYSTEM on 11-27-2021 Albumin [...] AM Ordering Provider: NAT Mercado [facility] ([place]) .Auto Diffon 11-26-2021 Basophil, Absolute 0.1 10 3/mcL Normal 0.0-0.3 [facility] ([place]) Basophils/100 WBC (Bld) 0.4 % Normal 0.0-2.5 A [facility]) Eosinophil, Absolute 0.1 10 3/mcL Normal 0.0-0.7 Pending sale to [facility] ([place]) Eosinophils/100 WBC (Bld) 0.7 % Normal 0.0-6.0 [facility] ([place]) Lymphocyte, Absolute 2.2 10 3/mcL Normal 0.9-4.3 Pending sale to [facility] ([place]) Lymphocytes/100 WBC (Bld) 11.0 % Low 20.0-40.0 [facility] ([place]) Monocyte, Absolute 1.5 10 3/mcL High 0.1-1.4 [facility] ([place]) Monocytes/100 WBC (Bld) 7.4 % Normal 2.0-13.0 A [facility] ([place]) Neutrophils/100 WBC (Bld) 80.5 % High 50.0-75.0 [facility] ([place]) Basophil, Absolute 0.1 10 3/mcL Normal 0.0-0.3 [facility] ([place]) Comment on above: Performed By: #### H CTRP, HGBRP, GLURP, CLRP, NARP, BGRP, KRP, CARP #### [address] [address] Basophils/100 WBC (Bld) 0.4 % Normal 0.0-2.5 A [facility] ([place]) Comment on above: Performed By: #### H CTRP, HGBRP, GLURP, CLRP, NARP, BGRP, KRP, CARP #### [address] [address] Eosinophil, Absolute 0.1 10 3/mcL Normal 0.0-0.7 [facility]ending [facility] to [facility] ([place]) Comment on above: Performed By: #### H CTRP, HGBRP, GLURP, CLRP, NARP, BGRP, KRP, CARP #### [address] [address] Eosinophils/100 WBC (Bld) 0.5 % Normal 0.0-6.0 [facility] ([place]) Comment on above: Performed By: #### H CTRP, HGBRP, GLURP, CLRP, NARP, BGRP, KRP, CARP #### [address] [address] Lymphocyte, Absolute 2.0 10 3/mcL Normal 0.9-4.3 Pending [facility] to [facility] ([place]) Comment on above: Performed By: #### H CTRP, HGBRP, GLURP, CLRP, NARP, BGRP, KRP, CARP #### [address] [address] Lymphocytes/100 WBC (Bld) 10.0 % Low 20.0-40.0 [facility] ([place]) Comment on above: Performed By: #### H CTRP, HGBRP, GLURP, CLRP, NARP, BGRP, KRP, CARP #### [address] [address] Monocyte, Absolute 1.5 10 3/mcL High 0.1-1.4 [facility] ([place]) Comment on above: Performed By: #### H CTRP, HGBRP, GLURP, CLRP, NARP, BGRP, KRP, CARP #### [address] [address] Monocytes/100 WBC (Bld) 7.5 % Normal 2.0-13.0 A [facility] ([place]) Comment on above: Performed By: #### H CTRP, HGBRP, GLURP, CLRP, NARP, BGRP, KRP, CARP #### [address] [address] Neutrophils/100 WBC (Bld) 81.6 % High 50.0-75.0 [facility] ([place]) Comment on above: Performed By: #### H CTRP, HGBRP, GLURP, CLRP, NARP, BGRP, KRP, CARP #### [address] [address] .GFRon 11-26-2021 GFR >60 Normal [facility] ([place]) Comment on above: Result Comment: GFR Population [...] GLURP, CLRP, NARP, BGRP, KRP, CARP #### [address] [address] GFR Non- >60 Normal [facility] ([place]) Comment on above: Result Comment: GFR Population [...] GLURP, CLRP, NARP, BGRP, KRP, CARP #### [address] [address] .NEUABSon 11-26-2021 Neutrophil, Absolute 16.0 10 3/mcL High 2.3-8.1 A [facility] ([place]) Neutrophil, Absolute 16.6 10 3/mcL High 2.3-8.1 A [facility] ([place]) Comment on above: Performed By: #### H CTRP, HGBRP, GLURP, CLRP, NARP, BGRP, KRP, CARP #### [address] [address] BGon 11-26-2021 Barometric Pressure 734 mmHg Normal [facility] ([place]) Comment on above: Performed By: #### H CTRP, HGBRP, GLURP, CLRP, NARP, BGRP, KRP, CARP #### [address] [address] Base excess Calc (Bld) [Moles/Vol] 11.2 mmol/L Normal [facility] ([place]) Comment on above: Performed By: #### H CTRP, HGBRP, GLURP, CLRP, NARP, BGRP, KRP, CARP #### [address] [address] CO2 [Moles/Vol] 39.8 mmol/L High 22.0-30.0 [facility] ([place]) Comment on above: Performed By: #### H CTRP, HGBRP, GLURP, CLRP, NARP, BGRP, KRP, CARP #### [address] [address] HCO3 (Bld) [Moles/Vol] 38.0 mmol/L High 21.0-29.0 A [facility] ([place]) Comment on above: Performed By: #### H CTRP, HGBRP, GLURP, CLRP, NARP, BGRP, KRP, CARP #### [address] [address] Oxygen (Bld) [Partial pressure] 68.4 mm[Hg] Low 74.0-108.0 [facility] ([place]) Comment on above: Performed By: #### H CTRP, HGBRP, GLURP, CLRP, NARP, BGRP, KRP, CARP #### [address] [address] Oxygen saturation in Blood 93.8 % Normal 92.0-96.0 [facility] ([place]) Comment on above: Performed By: #### H CTRP, HGBRP, GLURP, CLRP, NARP, BGRP, KRP, CARP #### [address] [address] pCO2 57.9 mmHg High 32.0-46.0 [facility] ([place]) Comment on above: Performed By: #### H CTRP, HGBRP, GLURP, CLRP, NARP, BGRP, KRP, CARP #### [address] [address] pH (Bld) 7.435 [pH] Normal 7.380-7.460 [facility] ([place]) Comment on above: Performed By: #### H CTRP, HGBRP, GLURP, CLRP, NARP, BGRP, KRP, CARP #### [address] [address] Barometric Pressure 711 mmHg Normal [facility] ([place]) Comment on above: Performed By: #### H CTRP, HGBRP, GLURP, CLRP, NARP, BGRP, KRP, CARP #### [address] [address] Base excess Calc (Bld) [Moles/Vol] 3.2 mmol/L Normal [facility] ([place]) Comment on above: Performed By: #### H CTRP, HGBRP, GLURP, CLRP, NARP, BGRP, KRP, CARP #### [address] [address] CO2 [Moles/Vol] 30.3 mmol/L High 22.0-30.0 [facility] ([place]) Comment on above: Performed By: #### H CTRP, HGBRP, GLURP, CLRP, NARP, BGRP, KRP, CARP #### [address] [address] HCO3 (Bld) [Moles/Vol] 28.8 mmol/L Normal 21.0-29.0 A [facility] ([place]) Comment on above: Performed By: #### H CTRP, HGBRP, GLURP, CLRP, NARP, BGRP, KRP, CARP #### [address] [address] Oxygen (Bld) [Partial pressure] 103.1 mm[Hg] Normal 74.0-108.0 [facility] ([place]) Comment on above: Performed By: #### H CTRP, HGBRP, GLURP, CLRP, NARP, BGRP, KRP, CARP #### [address] [address] Oxygen saturation in Blood 97.9 % High 92.0-96.0 [facility] ([place]) Comment on above: Performed By: #### H CTRP, HGBRP, GLURP, CLRP, NARP, BGRP, KRP, CARP #### [address] [address] pCO2 48.2 mmHg High 32.0-46.0 [facility] ([place]) Comment on above: Performed By: #### H CTRP, HGBRP, GLURP, CLRP, NARP, BGRP, KRP, CARP #### [place] [address] pH (Bld) 7.394 [pH] Normal 7.380-7.460 [facility] ([place]) Comment on above: Performed By: #### H CTRP, HGBRP, GLURP, CLRP, NARP, BGRP, KRP, CARP #### [address] [address] BMPon 11-26-2021 BUN/Creatinine Ratio 26.5 ratio High 10.0-22.0 [facility] ([place]) Comment on above: Performed By: #### H CTRP, HGBRP, GLURP, CLRP, NARP, BGRP, KRP, CARP #### [address] [address] Calcium [Mass/Vol] 8.3 mg/dL Low 8.7-10.4 [facility] ([place]) Comment on above: Performed By: #### H CTRP, HGBRP, GLURP, CLRP, NARP, BGRP, KRP, CARP #### [address] [address] Chloride [Moles/Vol] 98 mmol/L Normal 98-110 [facility] ([place]) Comment on above: Performed By: #### H CTRP, HGBRP, GLURP, CLRP, NARP, BGRP, KRP, CARP #### [address] [address] CO2 [Moles/Vol] 28 mmol/L Normal 22-32 [facility] ([place]) Comment on above: Performed By: #### H CTRP, HGBRP, GLURP, CLRP, NARP, BGRP, KRP, CARP #### [address] [address] Creatinine [Mass/Vol] 0.68 mg/dL Normal 0.50-1.20 [facility] ([place]) Comment on above: Performed By: #### H CTRP, HGBRP, GLURP, CLRP, NARP, BGRP, KRP, CARP #### [address] [address] Electrolyte Balance 7.0 mEq/L Normal 4.0-15.0 [facility] ([place]) Comment on above: Performed By: #### H CTRP, HGBRP, GLURP, CLRP, NARP, BGRP, KRP, CARP #### [address] [address] Glucose [Mass/Vol] 176 mg/dL High 82-115 [facility] ([place]) Comment on above: Performed By: #### H CTRP, HGBRP, GLURP, CLRP, NARP, BGRP, KRP, CARP #### [address] [address] Potassium [Moles/Vol] 4.2 mmol/L Normal 3.5-5.0 [facility] ([place]) Comment on above: Performed By: #### H CTRP, HGBRP, GLURP, CLRP, NARP, BGRP, KRP, CARP #### [address] [address] Sodium [Moles/Vol] 133 mmol/L Low 136-145 [facility] ([place]) Comment on above: Performed By: #### H CTRP, HGBRP, GLURP, CLRP, NARP, BGRP, KRP, CARP #### [address] [address] Urea nitrogen [Mass/Vol] 18.0 mg/dL Normal 8.0-22.0 [facility] ([place]) Comment on above: Performed By: #### H CTRP, HGBRP, GLURP, CLRP, NARP, BGRP, KRP, CARP #### [address] [address] CBCon 11-26-2021 Erythrocyte distribution width (RBC) [Ratio] 14.1 % Normal 11.5-15.5 [facility] ([place]) Hematocrit (Bld) [Volume fraction] 31.3 % Low 34.0-46.0 [facility] ([place]) Hgb 10.5 G/dL Low 12.0-16.0 [facility] ([place]) MCH (RBC) [Entitic mass] 30.1 pg Normal 27.0-33.0 [facility] ([place]) MCHC 33.5 G/dL Normal 32.0-36.0 [facility] ([place]) MCV (RBC) [Entitic vol] 89.8 fL Normal 80.0-99.0 A [facility] ([place]) Platelet 268 10 3/mcL Normal 150-450 [facility] ([place]) Platelet mean volume (Bld) [Entitic vol] 8.4 fL Normal 6.6-10.5 [facility]) RBC 3.49 10 6/mcL Low 4.10-5.30 [facility] ([place]) WBC 19.8 10 3/mcL High 4.5-10.8 [facility] ([place]) Erythrocyte distribution width (RBC) [Ratio] 14.0 % Normal 11.5-15.5 [facility]) Comment on above: Performed By: #### H CTRP, HGBRP, GLURP, CLRP, NARP, BGRP, KRP, CARP #### [address] [address] Hematocrit (Bld) [Volume fraction] 31.7 % Low 34.0-46.0 [facility] ([place]) Comment on above: Performed By: #### H CTRP, HGBRP, GLURP, CLRP, NARP, BGRP, KRP, CARP #### [place] [address] Hgb 10.3 G/dL Low 12.0-16.0 [facility] ([place]) Comment on above: Performed By: #### H CTRP, HGBRP, GLURP, CLRP, NARP, BGRP, KRP, CARP #### [place] [id number] MCH (RBC) [Entitic mass] 29.6 pg Normal 27.0-33.0 [facility] ([place]) Comment on above: Performed By: #### H CTRP, HGBRP, GLURP, CLRP, NARP, BGRP, KRP, CARP #### [place] [address] MCHC 32.7 G/dL Normal 32.0-36.0 [facility] ([place]) Comment on above: Performed By: #### H CTRP, HGBRP, GLURP, CLRP, NARP, BGRP, KRP, CARP #### [place] [address] MCV (RBC) [Entitic vol] 90.7 fL Normal 80.0-99.0 A [facility] ([place]) Comment on above: Performed By: #### H CTRP, HGBRP, GLURP, CLRP, NARP, BGRP, KRP, CARP #### [place] [address] Platelet 243 10 3/mcL Normal 150-450 [facility] ([place]) Comment on above: Performed By: #### H CTRP, HGBRP, GLURP, CLRP, NARP, BGRP, KRP, CARP #### [place] [id number] Platelet mean volume (Bld) [Entitic vol] 8.6 fL Normal 6.6-10.5 [facility] ([place]) Comment on above: Performed By: #### H CTRP, HGBRP, GLURP, CLRP, NARP, BGRP, KRP, CARP #### [place] [address] RBC 3.49 10 6/mcL Low 4.10-5.30 [facility] ([place]) Comment on above: Performed By: #### H CTRP, HGBRP, GLURP, CLRP, NARP, BGRP, KRP, CARP #### [facility] [address] [place] [address] WBC 20.3 10 3/mcL High 4.5-10.8 [facility] ([place]) Comment on above: Performed By: #### H CTRP, HGBRP, GLURP, CLRP, NARP, BGRP, KRP, CARP #### [facility] [address] [place] [address] LABORATORYOrdered By: Nicci erickson on 11-26-2021 Barometric [...] Culture Urine No growth at 48 hours. [facility] Work Phone: UAon 11-26-2021 Color (U) Yellow Normal [facility] ([place]) Comment on above: Performed By: #### H CTRP, HGBRP, GLURP, CLRP, NARP, BGRP, KRP, CARP #### [place] [address] Glucose (U) [Mass/Vol] 100 mg/dL Abnormal Negative Pending sale to [facility] ([place]) Comment on above: Performed By: #### H CTRP, HGBRP, GLURP, CLRP, NARP, BGRP, KRP, CARP #### [place] [address] Ketones Ql (U) 15 mg/dL Abnormal Neg-Trace [facility] ([place]) Comment on above: Performed By: #### H CTRP, HGBRP, GLURP, CLRP, NARP, BGRP, KRP, CARP #### [place] [address] UA Appear Clear Normal Clear [facility] ([place]) Comment on above: Performed By: #### H CTRP, HGBRP, GLURP, CLRP, NARP, BGRP, KRP, CARP #### [place] [address] UA Blood Negative Normal Neg-Trace [facility] ([place]) Comment on above: Performed By: #### H CTRP, HGBRP, GLURP, CLRP, NARP, BGRP, KRP, CARP #### [place] [address] UA Leuk Est Negative Normal Negative [facility] ([place]) Comment on above: Performed By: #### H CTRP, HGBRP, GLURP, CLRP, NARP, BGRP, KRP, CARP #### [address] [address] UA Nitrite Negative Normal Negative [facility] ([place]) Comment on above: Performed By: #### H CTRP, HGBRP, GLURP, CLRP, NARP, BGRP, KRP, CARP #### [place] [address] UA pH 5.0 Normal 5.0 - 8.0 [facility] ([place]) Comment on above: Performed By: #### H CTRP, HGBRP, GLURP, CLRP, NARP, BGRP, KRP, CARP #### [place] [address] UA Protein Negative Normal Negative [facility] ([place]) Comment on above: Performed By: #### H CTRP, HGBRP, GLURP, CLRP, NARP, BGRP, KRP, CARP #### [place] [address] UA Spec Grav 1.015 Normal 1.006-1.029 [facility] ([place]) Comment on above: Performed By: #### H CTRP, HGBRP, GLURP, CLRP, NARP, BGRP, KRP, CARP #### [place] [address] UA Specimen Type Catheter Normal [facility] ([place]) Comment on above: Performed By: #### H CTRP, HGBRP, GLURP, CLRP, NARP, BGRP, KRP, CARP #### [place] [address] UA Urobilinogen 0.2 E.U./dL Normal 0.2-1.0 [facility] ([place]) Comment on above: Performed By: #### H CTRP, HGBRP, GLURP, CLRP, NARP, BGRP, KRP, CARP #### [place] [address] Urobilinogen (U) [Mass/Vol] Negative Normal Neg-Trace [facility] ([place]) Comment on above: Performed By: #### H CTRP, HGBRP, GLURP, CLRP, NARP, BGRP, KRP, CARP #### [place] [address] XR CHEST 1 VIEWon 11-26-2021 XR CHEST [...] 11/26/2021 9:26:00 PM Ordering Provider: AL KOHLER [facility] ([place]) XR CHEST 1 VIEW ORIGINAL EXAMINATION: ONE [...] 11/26/2021 6:50:40 AM Ordering Provider: NAT DUNN [facility] ([place]) .Auto Diffon 11-25-2021 Basophil, Absolute 0.0 10 3/mcL Normal 0.0-0.3 [facility] ([place]) Comment on above: Performed By: #### H CTRP, HGBRP, GLURP, CLRP, NARP, BGRP, KRP, CARP #### [address] [address] Basophils/100 WBC (Bld) 0.2 % Normal 0.0-2.5 A [facility] ([place]) Comment on above: Performed By: #### H CTRP, HGBRP, GLURP, CLRP, NARP, BGRP, KRP, CARP #### [address] [address] Eosinophil, Absolute 0.0 10 3/mcL Normal 0.0-0.7 Pending [facility] to [facility] ([place]) Comment on above: Performed By: #### H CTRP, HGBRP, GLURP, CLRP, NARP, BGRP, KRP, CARP #### [address] [address] Eosinophils/100 WBC (Bld) 0.2 % Normal 0.0-6.0 [facility] ([place]) Comment on above: Performed By: #### H CTRP, HGBRP, GLURP, CLRP, NARP, BGRP, KRP, CARP #### [address] [address] Lymphocyte, Absolute 2.0 10 3/mcL Normal 0.9-4.3 Pending sale to [facility] ([place]) Comment on above: Performed By: #### H CTRP, HGBRP, GLURP, CLRP, NARP, BGRP, KRP, CARP #### [address] [address] Lymphocytes/100 WBC (Bld) 10.7 % Low 20.0-40.0 [facility] ([place]) Comment on above: Performed By: #### H CTRP, HGBRP, GLURP, CLRP, NARP, BGRP, KRP, CARP #### [address] [address] Monocyte, Absolute 1.7 10 3/mcL High 0.1-1.4 [facility] ([place]) Comment on above: Performed By: #### H CTRP, HGBRP, GLURP, CLRP, NARP, BGRP, KRP, CARP #### [address] [address] Monocytes/100 WBC (Bld) 9.3 % Normal 2.0-13.0 [facility] ([place]) Comment on above: Performed By: #### H CTRP, HGBRP, GLURP, CLRP, NARP, BGRP, KRP, CARP #### [address] [address] Neutrophils/100 WBC (Bld) 79.6 % High 50.0-75.0 [facility] ([place]) Comment on above: Performed By: #### H CTRP, HGBRP, GLURP, CLRP, NARP, BGRP, KRP, CARP #### [address] [address] .GFRon 11-25-2021 GFR Non- >60 Normal [facility] ([place]) Comment on above: Result Comment: GFR Population [...] GLURP, CLRP, NARP, BGRP, KRP, CARP #### [address] [address] GFR >60 Normal [facility] ([place]) Comment on above: Result Comment: GFR Population [...] GLURP, CLRP, NARP, BGRP, KRP, CARP #### [address] [address] .NEUABSon 11-25-2021 Neutrophil, Absolute 14.6 10 3/mcL High 2.3-8.1 A [facility] ([place]) Comment on above: Performed By: #### H CTRP, HGBRP, GLURP, CLRP, NARP, BGRP, KRP, CARP #### [place] [address] BGon 11-25-2021 Barometric Pressure 712 mmHg Normal [facility] ([place]) Comment on above: Performed By: #### H CTRP, HGBRP, GLURP, CLRP, NARP, BGRP, KRP, CARP #### [place] [address] Base excess Calc (Bld) [Moles/Vol] 2.5 mmol/L Normal [facility] ([place]) Comment on above: Performed By: #### H CTRP, HGBRP, GLURP, CLRP, NARP, BGRP, KRP, CARP #### [address] [address] CO2 [Moles/Vol] 28.1 mmol/L Normal 22.0-30.0 [facility] ([place]) Comment on above: Performed By: #### H CTRP, HGBRP, GLURP, CLRP, NARP, BGRP, KRP, CARP #### [place] [id number] HCO3 (Bld) [Moles/Vol] 26.8 mmol/L Normal 21.0-29.0 A [facility] ([place]) Comment on above: Performed By: #### H CTRP, HGBRP, GLURP, CLRP, NARP, BGRP, KRP, CARP #### [place] [address] Oxygen (Bld) [Partial pressure] 72.8 mm[Hg] Low 74.0-108.0 [facility] ([place]) Comment on above: Performed By: #### H CTRP, HGBRP, GLURP, CLRP, NARP, BGRP, KRP, CARP #### [address] [address] Oxygen saturation in Blood 94.9 % Normal 92.0-96.0 [facility] ([place]) Comment on above: Performed By: #### H CTRP, HGBRP, GLURP, CLRP, NARP, BGRP, KRP, CARP #### [address] [address] pCO2 40.3 mmHg Normal 32.0-46.0 [facility] ([place]) Comment on above: Performed By: #### H CTRP, HGBRP, GLURP, CLRP, NARP, BGRP, KRP, CARP #### [address] [address] pH (Bld) 7.441 [pH] Normal 7.380-7.460 [facility] ([place]) Comment on above: Performed By: #### H CTRP, HGBRP, GLURP, CLRP, NARP, BGRP, KRP, CARP #### [address] [address] BMPon 11-25-2021 BUN/Creatinine Ratio 19.7 ratio Normal 10.0-22.0 [facility] ([place]) Comment on above: Performed By: #### H CTRP, HGBRP, GLURP, CLRP, NARP, BGRP, KRP, CARP #### [place] [id number] Calcium [Mass/Vol] 7.9 mg/dL Low 8.7-10.4 [facility] ([place]) Comment on above: Performed By: #### H CTRP, HGBRP, GLURP, CLRP, NARP, BGRP, KRP, CARP #### [place] [id number] Chloride [Moles/Vol] 101 mmol/L Normal 98-110 [facility] ([place]) Comment on above: Performed By: #### H CTRP, HGBRP, GLURP, CLRP, NARP, BGRP, KRP, CARP #### [address] [address] CO2 [Moles/Vol] 26 mmol/L Normal 22-32 [facility] ([place]) Comment on above: Performed By: #### H CTRP, HGBRP, GLURP, CLRP, NARP, BGRP, KRP, CARP #### [address] [address] Creatinine [Mass/Vol] 0.66 mg/dL Normal 0.50-1.20 [facility] ([place]) Comment on above: Performed By: #### H CTRP, HGBRP, GLURP, CLRP, NARP, BGRP, KRP, CARP #### [address] [address] Electrolyte Balance 10.0 mEq/L Normal 4.0-15.0 [facility] ([place]) Comment on above: Performed By: #### H CTRP, HGBRP, GLURP, CLRP, NARP, BGRP, KRP, CARP #### [address] [address] Glucose [Mass/Vol] 89 mg/dL Normal 82-115 [facility] ([place]) Comment on above: Performed By: #### H CTRP, HGBRP, GLURP, CLRP, NARP, BGRP, KRP, CARP #### [address] [address] Potassium [Moles/Vol] 3.8 mmol/L Normal 3.5-5.0 [facility] ([place]) Comment on above: Performed By: #### H CTRP, HGBRP, GLURP, CLRP, NARP, BGRP, KRP, CARP #### [address] [address] Sodium [Moles/Vol] 137 mmol/L Normal 136-145 [facility] ([place]) Comment on above: Performed By: #### H CTRP, HGBRP, GLURP, CLRP, NARP, BGRP, KRP, CARP #### [address] [address] Urea nitrogen [Mass/Vol] 13.0 mg/dL Normal 8.0-22.0 [facility] ([place]) Comment on above: Performed By: #### H CTRP, HGBRP, GLURP, CLRP, NARP, BGRP, KRP, CARP #### [place] [address] CBCon 11-25-2021 Erythrocyte distribution width (RBC) [Ratio] 13.8 % Normal 11.5-15.5 [facility] ([place]) Comment on above: Performed By: #### H CTRP, HGBRP, GLURP, CLRP, NARP, BGRP, KRP, CARP #### [place] [address] Hematocrit (Bld) [Volume fraction] 31.4 % Low 34.0-46.0 [facility] ([place]) Comment on above: Performed By: #### H CTRP, HGBRP, GLURP, CLRP, NARP, BGRP, KRP, CARP #### [place] [address] Hgb 10.3 G/dL Low 12.0-16.0 [facility] ([place]) Comment on above: Performed By: #### H CTRP, HGBRP, GLURP, CLRP, NARP, BGRP, KRP, CARP #### [place] [address] MCH (RBC) [Entitic mass] 29.5 pg Normal 27.0-33.0 [facility] ([place]) Comment on above: Performed By: #### H CTRP, HGBRP, GLURP, CLRP, NARP, BGRP, KRP, CARP #### [place] [address] MCHC 32.8 G/dL Normal 32.0-36.0 [facility] ([place]) Comment on above: Performed By: #### H CTRP, HGBRP, GLURP, CLRP, NARP, BGRP, KRP, CARP #### [place] [address] MCV (RBC) [Entitic vol] 89.8 fL Normal 80.0-99.0 A [facility] ([place]) Comment on above: Performed By: #### H CTRP, HGBRP, GLURP, CLRP, NARP, BGRP, KRP, CARP #### [place] [address] Platelet 205 10 3/mcL Normal 150-450 [facility] ([place]) Comment on above: Performed By: #### H CTRP, HGBRP, GLURP, CLRP, NARP, BGRP, KRP, CARP #### [place] [address] Platelet mean volume (Bld) [Entitic vol] 8.9 fL Normal 6.6-10.5 [facility] ([place]) Comment on above: Performed By: #### H CTRP, HGBRP, GLURP, CLRP, NARP, BGRP, KRP, CARP #### [place] [address] RBC 3.49 10 6/mcL Low 4.10-5.30 [facility] ([place]) Comment on above: Performed By: #### H CTRP, HGBRP, GLURP, CLRP, NARP, BGRP, KRP, CARP #### [place] [address] WBC 18.4 10 3/mcL High 4.5-10.8 [facility] ([place]) Comment on above: Performed By: #### H CTRP, HGBRP, GLURP, CLRP, NARP, BGRP, KRP, CARP #### [place] [address] Jayden 11-25-2021 Potassium [Moles/Vol] 4.3 mmol/L Normal 3.5-5.0 [facility] ([place]) Comment on above: Performed By: #### K #### [place] [address] LABORATORYOrdered By: Alma Rosa Cabrera on 11-25-2021 [...] 11-25-2021 Cholesterol [Mass/Vol] 85 mg/dL Normal 50-199 Pending sale to [facility] ([place]) Comment on above: Result Comment: Chol esterol Reference Interval: Less than 200 Desirable 200-239 Borderline high risk 240 and above High risk Performed By: #### H CTRP, HGBRP, GLURP, CLRP, NARP, BGRP, KRP, CARP #### [address] [address] Cholesterol in HDL [Mass/Vol] 34 mg/dL Low 40-59 [facility] ([place]) Comment on above: Performed By: #### H CTRP, HGBRP, GLURP, CLRP, NARP, BGRP, KRP, CARP #### [address] [address] Cholesterol in LDL [Mass/Vol] 37 mg/dL Normal 0-129 [facility] ([place]) Comment on above: Performed By: #### H CTRP, HGBRP, GLURP, CLRP, NARP, BGRP, KRP, CARP #### [address] [address] Triglyceride [Mass/Vol] 72 mg/dL Normal 3-149 A [facility] ([place]) Comment on above: Performed By: #### H CTRP, HGBRP, GLURP, CLRP, NARP, BGRP, KRP, CARP #### [address] [address] XR CHEST 1 VIEWon 11-25-2021 XR CHEST [...] AM Ordering Provider: NAT Mercado [facility] ([place]) XR CHEST 1 VIEW ORIGINAL EXAMINATION: ONE [...] PM Ordering Provider: POLLY Mercado [facility] ([place]) .Auto Diffon 11-24-2021 Basophil, Absolute 0.0 10 3/mcL Normal 0.0-0.3 [facility] ([place]) Comment on above: Performed By: #### H CTRP, HGBRP, GLURP, CLRP, NARP, BGRP, KRP, CARP #### [address] [address] Basophils/100 WBC (Bld) 0.2 % Normal 0.0-2.5 [facility] ([place]) Comment on above: Performed By: #### H CTRP, HGBRP, GLURP, CLRP, NARP, BGRP, KRP, CARP #### [address] [address] Eosinophil, Absolute 0.0 10 3/mcL Normal 0.0-0.7 Pending [facility] to [facility] ([place]) Comment on above: Performed By: #### H CTRP, HGBRP, GLURP, CLRP, NARP, BGRP, KRP, CARP #### [address] [address] Eosinophils/100 WBC (Bld) 0.0 % Normal 0.0-6.0 [facility] ([place]) Comment on above: Performed By: #### H CTRP, HGBRP, GLURP, CLRP, NARP, BGRP, KRP, CARP #### [address] [address] Lymphocyte, Absolute 1.3 10 3/mcL Normal 0.9-4.3 Pending sale to [facility] ([place]) Comment on above: Performed By: #### H CTRP, HGBRP, GLURP, CLRP, NARP, BGRP, KRP, CARP #### [address] [address] Lymphocytes/100 WBC (Bld) 8.8 % Low 20.0-40.0 [facility] ([place]) Comment on above: Performed By: #### H CTRP, HGBRP, GLURP, CLRP, NARP, BGRP, KRP, CARP #### [address] [address] Monocyte, Absolute 1.0 10 3/mcL Normal 0.1-1.4 [facility] ([place]) Comment on above: Performed By: #### H CTRP, HGBRP, GLURP, CLRP, NARP, BGRP, KRP, CARP #### [address] [address] Monocytes/100 WBC (Bld) 6.9 % Normal 2.0-13.0 A [facility] ([place]) Comment on above: Performed By: #### H CTRP, HGBRP, GLURP, CLRP, NARP, BGRP, KRP, CARP #### [address] [address] Neutrophils/100 WBC (Bld) 84.1 % High 50.0-75.0 [facility] ([place]) Comment on above: Performed By: #### H CTRP, HGBRP, GLURP, CLRP, NARP, BGRP, KRP, CARP #### [address] [address] .GFRon 11-24-2021 GFR Non- >60 Normal [facility] ([place]) Comment on above: Result Comment: GFR Population [...] GLURP, CLRP, NARP, BGRP, KRP, CARP #### [address] [address] GFR >60 Normal [facility] ([place]) Comment on above: Result Comment: GFR Population [...] GLURP, CLRP, NARP, BGRP, KRP, CARP #### [address] [address] .NEUABSon 11-24-2021 Neutrophil, Absolute 12.4 10 3/mcL High 2.3-8.1 A [facility] ([place]) Comment on above: Performed By: #### H CTRP, HGBRP, GLURP, CLRP, NARP, BGRP, KRP, CARP #### [address] [address] BGon 11-24-2021 Barometric Pressure 707 mmHg Normal [facility] ([place]) Comment on above: Performed By: #### K #### [address] [address] Base excess Calc (Bld) [Moles/Vol] 1.1 mmol/L Normal [facility] ([place]) Comment on above: Performed By: #### K #### [address] [address] CO2 [Moles/Vol] 27.3 mmol/L Normal 22.0-30.0 [facility] ([place]) Comment on above: Performed By: #### K #### [address] [address] HCO3 (Bld) [Moles/Vol] 26.0 mmol/L Normal 21.0-29.0 A [facility] ([place]) Comment on above: Performed By: #### K #### [address] [address] Oxygen (Bld) [Partial pressure] 74.2 mm[Hg] Normal 74.0-108.0 [facility] ([place]) Comment on above: Performed By: #### K #### [address] [address] Oxygen saturation in Blood 95.6 % Normal 92.0-96.0 [facility] ([place]) Comment on above: Performed By: #### K #### [address] [address] pCO2 42.2 mmHg Normal 32.0-46.0 [facility] ([place]) Comment on above: Performed By: #### K #### [address] [address] pH (Bld) 7.407 [pH] Normal 7.380-7.460 [facility] ([place]) Comment on above: Performed By: #### K #### [address] [address] Barometric Pressure 706 mmHg Normal [facility] ([place]) Comment on above: Performed By: #### H CTRP, HGBRP, GLURP, CLRP, NARP, BGRP, KRP, CARP #### [address] [address] Base excess Calc (Bld) [Moles/Vol] -2.2000 mmol/L Normal [facility] ([place]) Comment on above: Performed By: #### H CTRP, HGBRP, GLURP, CLRP, NARP, BGRP, KRP, CARP #### [address] [address] CO2 [Moles/Vol] 26.0 mmol/L Normal 22.0-30.0 [facility] ([place]) Comment on above: Performed By: #### H CTRP, HGBRP, GLURP, CLRP, NARP, BGRP, KRP, CARP #### [address] [address] HCO3 (Bld) [Moles/Vol] 24.4 mmol/L Normal 21.0-29.0 A [facility] ([place]) Comment on above: Performed By: #### H CTRP, HGBRP, GLURP, CLRP, NARP, BGRP, KRP, CARP #### [address] [address] Oxygen (Bld) [Partial pressure] 86.6 mm[Hg] Normal 74.0-108.0 [facility] ([place]) Comment on above: Performed By: #### H CTRP, HGBRP, GLURP, CLRP, NARP, BGRP, KRP, CARP #### [address] [address] Oxygen saturation in Blood 96.2 % High 92.0-96.0 [facility] ([place]) Comment on above: Performed By: #### H CTRP, HGBRP, GLURP, CLRP, NARP, BGRP, KRP, CARP #### [address] [address] pCO2 50.9 mmHg High 32.0-46.0 [facility] ([place]) Comment on above: Performed By: #### H CTRP, HGBRP, GLURP, CLRP, NARP, BGRP, KRP, CARP #### [address] [address] pH (Bld) 7.299 [pH] Low 7.380-7.460 [facility] ([place]) Comment on above: Performed By: #### H CTRP, HGBRP, GLURP, CLRP, NARP, BGRP, KRP, CARP #### [address] [address] Barometric Pressure 709 mmHg Normal [facility] ([place]) Comment on above: Performed By: #### H CTRP, HGBRP, GLURP, CLRP, NARP, BGRP, KRP, CARP #### [address] [address] Base excess Calc (Bld) [Moles/Vol] -0.8000 mmol/L Normal [facility] ([place]) Comment on above: Performed By: #### H CTRP, HGBRP, GLURP, CLRP, NARP, BGRP, KRP, CARP #### [address] [address] CO2 [Moles/Vol] 27.3 mmol/L Normal 22.0-30.0 [facility] ([place]) Comment on above: Performed By: #### H CTRP, HGBRP, GLURP, CLRP, NARP, BGRP, KRP, CARP #### [address] [address] HCO3 (Bld) [Moles/Vol] 25.7 mmol/L Normal 21.0-29.0 [facility] ([place]) Comment on above: Performed By: #### H CTRP, HGBRP, GLURP, CLRP, NARP, BGRP, KRP, CARP #### [address] [address] Oxygen (Bld) [Partial pressure] 130.7 mm[Hg] High 74.0-108.0 [facility] ([place]) Comment on above: Performed By: #### H CTRP, HGBRP, GLURP, CLRP, NARP, BGRP, KRP, CARP #### [address] [address] Oxygen saturation in Blood 98.7 % High 92.0-96.0 [facility] ([place]) Comment on above: Performed By: #### H CTRP, HGBRP, GLURP, CLRP, NARP, BGRP, KRP, CARP #### [address] [address] pCO2 50.9 mmHg High 32.0-46.0 [facility] ([place]) Comment on above: Performed By: #### H CTRP, HGBRP, GLURP, CLRP, NARP, BGRP, KRP, CARP #### [address] [address] pH (Bld) 7.321 [pH] Low 7.380-7.460 [facility] ([place]) Comment on above: Performed By: #### H CTRP, HGBRP, GLURP, CLRP, NARP, BGRP, KRP, CARP #### [address] [address] Barometric Pressure 735 mmHg Normal [facility] ([place]) Comment on above: Performed By: #### H CTRP, HGBRP, GLURP, CLRP, NARP, BGRP, KRP, CARP #### [address] [address] Base excess Calc (Bld) [Moles/Vol] -2.0000 mmol/L Normal [facility] ([place]) Comment on above: Performed By: #### H CTRP, HGBRP, GLURP, CLRP, NARP, BGRP, KRP, CARP #### [address] [address] CO2 [Moles/Vol] 27.5 mmol/L Normal 22.0-30.0 [facility] ([place]) Comment on above: Performed By: #### H CTRP, HGBRP, GLURP, CLRP, NARP, BGRP, KRP, CARP #### [address] [address] HCO3 (Bld) [Moles/Vol] 25.7 mmol/L Normal 21.0-29.0 A [facility] ([place]) Comment on above: Performed By: #### H CTRP, HGBRP, GLURP, CLRP, NARP, BGRP, KRP, CARP #### [address] [address] Oxygen (Bld) [Partial pressure] 101.8 mm[Hg] Normal 74.0-108.0 [facility] ([place]) Comment on above: Performed By: #### H CTRP, HGBRP, GLURP, CLRP, NARP, BGRP, KRP, CARP #### [address] [address] Oxygen saturation in Blood 96.9 % High 92.0-96.0 [facility] ([place]) Comment on above: Performed By: #### H CTRP, HGBRP, GLURP, CLRP, NARP, BGRP, KRP, CARP #### [address] [address] pCO2 55.8 mmHg High 32.0-46.0 [facility] ([place]) Comment on above: Performed By: #### H CTRP, HGBRP, GLURP, CLRP, NARP, BGRP, KRP, CARP #### [address] [address] pH (Bld) 7.282 [pH] Low 7.380-7.460 [facility] ([place]) Comment on above: Performed By: #### H CTRP, HGBRP, GLURP, CLRP, NARP, BGRP, KRP, CARP #### [address] [address] Barometric Pressure 705 mmHg Normal [facility] ([place]) Comment on above: Performed By: #### H CTRP, HGBRP, GLURP, CLRP, NARP, BGRP, KRP, CARP #### [address] [address] Base excess Calc (Bld) [Moles/Vol] -1.8000 mmol/L Normal [facility] ([place]) Comment on above: Performed By: #### H CTRP, HGBRP, GLURP, CLRP, NARP, BGRP, KRP, CARP #### [address] [address] CO2 [Moles/Vol] 27.9 mmol/L Normal 22.0-30.0 [facility] ([place]) Comment on above: Performed By: #### H CTRP, HGBRP, GLURP, CLRP, NARP, BGRP, KRP, CARP #### [address] [address] HCO3 (Bld) [Moles/Vol] 26.1 mmol/L Normal 21.0-29.0 A [facility] ([place]) Comment on above: Performed By: #### H CTRP, HGBRP, GLURP, CLRP, NARP, BGRP, KRP, CARP #### [address] [address] Oxygen (Bld) [Partial pressure] 113.5 mm[Hg] High 74.0-108.0 [facility] ([place]) Comment on above: Performed By: #### H CTRP, HGBRP, GLURP, CLRP, NARP, BGRP, KRP, CARP #### [place] [id number] Oxygen saturation in Blood 97.9 % High 92.0-96.0 [facility] ([place]) Comment on above: Performed By: #### H CTRP, HGBRP, GLURP, CLRP, NARP, BGRP, KRP, CARP #### [place] [id number] pCO2 60.4 mmHg High 32.0-46.0 [facility] ([place]) Comment on above: Performed By: #### H CTRP, HGBRP, GLURP, CLRP, NARP, BGRP, KRP, CARP #### [place] [id number] pH (Bld) 7.253 [pH] Low 7.380-7.460 [facility] ([place]) Comment on above: Performed By: #### H CTRP, HGBRP, GLURP, CLRP, NARP, BGRP, KRP, CARP #### [address] [address] CBCon 11-24-2021 Erythrocyte distribution width (RBC) [Ratio] 14.1 % Normal 11.5-15.5 [facility] ([place]) Comment on above: Performed By: #### H CTRP, HGBRP, GLURP, CLRP, NARP, BGRP, KRP, CARP #### [place] [id number] Hematocrit (Bld) [Volume fraction] 29.2 % Low 34.0-46.0 [facility] ([place]) Comment on above: Performed By: #### H CTRP, HGBRP, GLURP, CLRP, NARP, BGRP, KRP, CARP #### [address] [address] Hgb 9.6 G/dL Low 12.0-16.0 [facility] ([place]) Comment on above: Performed By: #### H CTRP, HGBRP, GLURP, CLRP, NARP, BGRP, KRP, CARP #### [place] [address] MCH (RBC) [Entitic mass] 29.6 pg Normal 27.0-33.0 [facility] ([place]) Comment on above: Performed By: #### H CTRP, HGBRP, GLURP, CLRP, NARP, BGRP, KRP, CARP #### [place] [address] MCHC 32.7 G/dL Normal 32.0-36.0 [facility] ([place]) Comment on above: Performed By: #### H CTRP, HGBRP, GLURP, CLRP, NARP, BGRP, KRP, CARP #### [place] [address] MCV (RBC) [Entitic vol] 90.4 fL Normal 80.0-99.0 A [facility] ([place]) Comment on above: Performed By: #### H CTRP, HGBRP, GLURP, CLRP, NARP, BGRP, KRP, CARP #### [place] [address] Platelet 186 10 3/mcL Normal 150-450 [facility] ([place]) Comment on above: Performed By: #### H CTRP, HGBRP, GLURP, CLRP, NARP, BGRP, KRP, CARP #### [place] [address] Platelet mean volume (Bld) [Entitic vol] 8.5 fL Normal 6.6-10.5 [facility] ([place]) Comment on above: Performed By: #### H CTRP, HGBRP, GLURP, CLRP, NARP, BGRP, KRP, CARP #### [place] [address] RBC 3.23 10 6/mcL Low 4.10-5.30 [facility] ([place]) Comment on above: Performed By: #### H CTRP, HGBRP, GLURP, CLRP, NARP, BGRP, KRP, CARP #### [address] [address] WBC 14.8 10 3/mcL High 4.5-10.8 [facility] ([place]) Comment on above: Performed By: #### H CTRP, HGBRP, GLURP, CLRP, NARP, BGRP, KRP, CARP #### [address] [address] CMPon 11-24-2021 Albumin Level 3.7 G/dL Normal 3.2-4.8 [facility] ([place]) Comment on above: Performed By: #### H CTRP, HGBRP, GLURP, CLRP, NARP, BGRP, KRP, CARP #### [address] [address] Albumin/Globulin [Mass ratio] 1.9 {ratio} High 0.9-1.6 [facility] ([place]) Comment on above: Performed By: #### H CTRP, HGBRP, GLURP, CLRP, NARP, BGRP, KRP, CARP #### [address] [address] ALP [Catalytic activity/Vol] 41 U/L Normal 38-126 [facility] ([place]) Comment on above: Performed By: #### H CTRP, HGBRP, GLURP, CLRP, NARP, BGRP, KRP, CARP #### [address] [address] ALT [Catalytic activity/Vol] 33 U/L Normal 10-49 [facility] ([place]) Comment on above: Performed By: #### H CTRP, HGBRP, GLURP, CLRP, NARP, BGRP, KRP, CARP #### [address] [address] AST [Catalytic activity/Vol] 49 U/L High 8-34 [facility] ([place]) Comment on above: Performed By: #### H CTRP, HGBRP, GLURP, CLRP, NARP, BGRP, KRP, CARP #### [address] [address] Bili Total 0.80 mg/dL Normal 0.20-1.20 [facility] ([place]) Comment on above: Result Comment: Use of this assay is not recommended for patients undergoing treatment with eltrombopag due to the potential for falsely elevated results. Performed By: #### H CTRP, HGBRP, GLURP, CLRP, NARP, BGRP, KRP, CARP #### [address] [address] BUN/Creatinine Ratio 22.4 ratio High 10.0-22.0 [facility] ([place]) Comment on above: Performed By: #### H CTRP, HGBRP, GLURP, CLRP, NARP, BGRP, KRP, CARP #### [address] [address] Calcium [Mass/Vol] 7.5 mg/dL Low 8.7-10.4 [facility] ([place]) Comment on above: Performed By: #### H CTRP, HGBRP, GLURP, CLRP, NARP, BGRP, KRP, CARP #### [address] [address] Chloride [Moles/Vol] 106 mmol/L Normal 98-110 [facility] ([place]) Comment on above: Performed By: #### H CTRP, HGBRP, GLURP, CLRP, NARP, BGRP, KRP, CARP #### [address] [address] CO2 [Moles/Vol] 26 mmol/L Normal 22-32 [facility] ([place]) Comment on above: Performed By: #### H CTRP, HGBRP, GLURP, CLRP, NARP, BGRP, KRP, CARP #### [address] [address] Creatinine [Mass/Vol] 0.67 mg/dL Normal 0.50-1.20 [facility] ([place]) Comment on above: Performed By: #### H CTRP, HGBRP, GLURP, CLRP, NARP, BGRP, KRP, CARP #### [address] [address] Electrolyte Balance 5.0 mEq/L Normal 4.0-15.0 [facility] ([place]) Comment on above: Performed By: #### H CTRP, HGBRP, GLURP, CLRP, NARP, BGRP, KRP, CARP #### [address] [address] Globulin 1.9 G/dL Normal 1.5-3.8 [facility] ([place]) Comment on above: Performed By: #### H CTRP, HGBRP, GLURP, CLRP, NARP, BGRP, KRP, CARP #### [address] [address] Glucose [Mass/Vol] 141 mg/dL High 82-115 [facility] ([place]) Comment on above: Performed By: #### H CTRP, HGBRP, GLURP, CLRP, NARP, BGRP, KRP, CARP #### [address] [address] Potassium [Moles/Vol] 4.2 mmol/L Normal 3.5-5.0 [facility] ([place] Comment on above: Performed By: #### H CTRP, HGBRP, GLURP, CLRP, NARP, BGRP, KRP, CARP #### [address] [address] Sodium [Moles/Vol] 137 mmol/L Normal 136-145 [facility] ([place]) Comment on above: Performed By: #### H CTRP, HGBRP, GLURP, CLRP, NARP, BGRP, KRP, CARP #### [address] [address] Total Protein 5.6 G/dL Low 5.7-8.2 [facility] ([place]) Comment on above: Result Comment: No te - New Reference Range in effect 19 Performed By: #### H CTRP, HGBRP, GLURP, CLRP, NARP, BGRP, KRP, CARP #### [place] [address] Urea nitrogen [Mass/Vol] 15.0 mg/dL Normal 8.0-22.0 [facility] ([place]) Comment on above: Performed By: #### H CTRP, HGBRP, GLURP, CLRP, NARP, BGRP, KRP, CARP #### [place] [address] Jayden 11-24-2021 Potassium [Moles/Vol] 4.0 mmol/L Normal 3.5-5.0 [facility] ([place]) Comment on above: Performed By: #### H CTRP, HGBRP, GLURP, CLRP, NARP, BGRP, KRP, CARP #### [place] [address] Potassium [Moles/Vol] 4.7 mmol/L Normal 3.5-5.0 [facility] ([place]) Comment on above: Performed By: #### H CTRP, HGBRP, GLURP, CLRP, NARP, BGRP, KRP, CARP #### [place] [address] LABORATORYOrdered By: Oswaldo Vásquez on 11-24-2021 Blood Glucose Interventions Administered agent to decrease blood sugar (11/24/21 11:28 AM) [facility] Work Phone: Blood Glucose Interventions Administered agent to decrease blood sugar (11/24/21 9:39 AM) [facility] Work Phone: Blood Glucose Interventions Administered agent to decrease blood sugar (11/24/21 7:27 AM) [facility] Work Phone: LABORATORYOrdered By: SYSTEM SYSTEM [...] 0.1 10 3/mcL Normal 0.0-0.3 [facility] ([place]) Comment on above: Performed By: #### H CTRP, HGBRP, GLURP, CLRP, NARP, BGRP, KRP, CARP #### [address] [address] Basophils/100 WBC (Bld) 0.3 % Normal 0.0-2.5 A [facility] ([place]) Comment on above: Performed By: #### H CTRP, HGBRP, GLURP, CLRP, NARP, BGRP, KRP, CARP #### [address] [address] Eosinophil, Absolute 0.3 10 3/mcL Normal 0.0-0.7 Pending sale to [facility] ([place]) Comment on above: Performed By: #### H CTRP, HGBRP, GLURP, CLRP, NARP, BGRP, KRP, CARP #### [address] [address] Eosinophils/100 WBC (Bld) 1.3 % Normal 0.0-6.0 [facility] ([place]) Comment on above: Performed By: #### H CTRP, HGBRP, GLURP, CLRP, NARP, BGRP, KRP, CARP #### [address] [address] Lymphocyte, Absolute 2.6 10 3/mcL Normal 0.9-4.3 Pending sale to [facility] ([place]) Comment on above: Performed By: #### H CTRP, HGBRP, GLURP, CLRP, NARP, BGRP, KRP, CARP #### [address] [address] Lymphocytes/100 WBC (Bld) 11.4 % Low 20.0-40.0 [facility] ([place]) Comment on above: Performed By: #### H CTRP, HGBRP, GLURP, CLRP, NARP, BGRP, KRP, CARP #### [address] [address] Monocyte, Absolute 0.7 10 3/mcL Normal 0.1-1.4 [facility] ([place]) Comment on above: Performed By: #### H CTRP, HGBRP, GLURP, CLRP, NARP, BGRP, KRP, CARP #### [address] [address] Monocytes/100 WBC (Bld) 3.1 % Normal 2.0-13.0 [facility] ([place]) Comment on above: Performed By: #### H CTRP, HGBRP, GLURP, CLRP, NARP, BGRP, KRP, CARP #### [address] [address] Neutrophils/100 WBC (Bld) 83.9 % High 50.0-75.0 [facility] ([place]) Comment on above: Performed By: #### H CTRP, HGBRP, GLURP, CLRP, NARP, BGRP, KRP, CARP #### [address] [address] .GFRon 11-23-2021 GFR Non- >60 Normal [facility] ([place]) Comment on above: Result Comment: GFR Population [...] GLURP, CLRP, NARP, BGRP, KRP, CARP #### [address] [address] GFR >60 Normal [facility] ([place]) Comment on above: Result Comment: GFR Population [...] GLURP, CLRP, NARP, BGRP, KRP, CARP #### [address] [address] .NEUABSon 11-23-2021 Neutrophil, Absolute 18.9 10 3/mcL High 2.3-8.1 A [facility] ([place]) Comment on above: Performed By: #### H CTRP, HGBRP, GLURP, CLRP, NARP, BGRP, KRP, CARP #### [address] [address] ABO/Rh (Gel)on 11-23-2021 ABO/Rh Interp Positive Invalid Interpretation Code [facility] ([place]) Comment on above: Performed By: #### H CTRP, HGBRP, GLURP, CLRP, NARP, BGRP, KRP, CARP #### [address] [address] ABS (Gel)on 11-23-2021 ABSC Interp (Gel) Negative Normal [facility] ([place]) Comment on above: Performed By: #### H CTRP, HGBRP, GLURP, CLRP, NARP, BGRP, KRP, CARP #### [address] [address] APTTon 11-23-2021 aPTT Coag (Bld) [Time] 32.5 s Normal 25.0-35.0 Pending sale to [facility] ([place]) Comment on above: Result Comment: For Heparin anticoagulation therapy, the recommended therapeutic range is: 54-77 seconds (APTT Correlation with Anti-Xa therapeutic range of 0.3-0.7 units/ml). PLEASE REFERENCE THE PHARMACY PROTOCOL FOR DOSING. Performed By: #### H CTRP, HGBRP, GLURP, CLRP, NARP, BGRP, KRP, CARP #### [place] [id number] Heparin dose (APTT) None Normal [facility] ([place]) Comment on above: Performed By: #### H CTRP, HGBRP, GLURP, CLRP, NARP, BGRP, KRP, CARP #### [address] [address] aPTT Coag (Bld) [Time] 25.6 s Normal 25.0-35.0 Pending sale to [facility] ([place]) Comment on above: Result Comment: For Heparin anticoagulation therapy, the recommended therapeutic range is: 54-77 seconds (APTT Correlation with Anti-Xa therapeutic range of 0.3-0.7 units/ml). PLEASE REFERENCE THE PHARMACY PROTOCOL FOR DOSING. Performed By: #### H CTRP, HGBRP, GLURP, CLRP, NARP, BGRP, KRP, CARP #### [address] [address] Heparin dose (APTT) Unknown Normal [facility] ([place]) Comment on above: Performed By: #### H CTRP, HGBRP, GLURP, CLRP, NARP, BGRP, KRP, CARP #### [address] [address] BGon 11-23-2021 Barometric Pressure 735 mmHg Normal [facility] ([place]) Comment on above: Performed By: #### K #### [address] [address] Base excess Calc (Bld) [Moles/Vol] -1.8000 mmol/L Normal [facility] ([place]) Comment on above: Performed By: #### K #### [address] [address] CO2 [Moles/Vol] 28.0 mmol/L Normal 22.0-30.0 [facility] ([place]) Comment on above: Performed By: #### K #### [place] [id number] HCO3 (Bld) [Moles/Vol] 26.2 mmol/L Normal 21.0-29.0 A [facility] ([place]) Comment on above: Performed By: #### K #### [place] [id number] Oxygen (Bld) [Partial pressure] 108.5 mm[Hg] High 74.0-108.0 [facility] ([place]) Comment on above: Performed By: #### K #### [place] [id number] Oxygen saturation in Blood 97.3 % High 92.0-96.0 [facility] ([place]) Comment on above: Performed By: #### K #### [address] [address] pCO2 57.8 mmHg High 32.0-46.0 [facility] ([place]) Comment on above: Performed By: #### K #### [address] [address] pH (Bld) 7.274 [pH] Low 7.380-7.460 [facility] ([place]) Comment on above: Performed By: #### K #### [place] [id number] Barometric Pressure 708 mmHg Normal [facility] ([place]) Comment on above: Performed By: #### H CTRP, HGBRP, GLURP, CLRP, NARP, BGRP, KRP, CARP #### [address] [address] Base excess Calc (Bld) [Moles/Vol] -2.2000 mmol/L Normal [facility] ([place]) Comment on above: Performed By: #### H CTRP, HGBRP, GLURP, CLRP, NARP, BGRP, KRP, CARP #### [address] [address] CO2 [Moles/Vol] 27.8 mmol/L Normal 22.0-30.0 [facility] ([place]) Comment on above: Performed By: #### H CTRP, HGBRP, GLURP, CLRP, NARP, BGRP, KRP, CARP #### [place] [id number] HCO3 (Bld) [Moles/Vol] 25.9 mmol/L Normal 21.0-29.0 [facility] ([place]) Comment on above: Performed By: #### H CTRP, HGBRP, GLURP, CLRP, NARP, BGRP, KRP, CARP #### [address] [address] Oxygen (Bld) [Partial pressure] 97.0 mm[Hg] Normal 74.0-108.0 [facility] ([place]) Comment on above: Performed By: #### H CTRP, HGBRP, GLURP, CLRP, NARP, BGRP, KRP, CARP #### [address] [address] Oxygen saturation in Blood 96.1 % High 92.0-96.0 [facility] ([place]) Comment on above: Performed By: #### H CTRP, HGBRP, GLURP, CLRP, NARP, BGRP, KRP, CARP #### [address] [address] pCO2 61.5 mmHg High 32.0-46.0 [facility] ([place]) Comment on above: Performed By: #### H CTRP, HGBRP, GLURP, CLRP, NARP, BGRP, KRP, CARP #### [address] [address] pH (Bld) 7.242 [pH] Low 7.380-7.460 [facility] ([place]) Comment on above: Performed By: #### H CTRP, HGBRP, GLURP, CLRP, NARP, BGRP, KRP, CARP #### [address] [address] Barometric Pressure 708 mmHg Normal [facility] ([place]) Comment on above: Order Comment: CPAP Performed By: #### H CTRP, HGBRP, GLURP, CLRP, NARP, BGRP, KRP, CARP #### [address] [address] Base excess Calc (Bld) [Moles/Vol] -1.1000 mmol/L Normal [facility] ([place]) Comment on above: Order Comment: CPAP Performed By: #### H CTRP, HGBRP, GLURP, CLRP, NARP, BGRP, KRP, CARP #### [address] [address] CO2 [Moles/Vol] 26.0 mmol/L Normal 22.0-30.0 [facility] ([place]) Comment on above: Order Comment: CPAP Performed By: #### H CTRP, HGBRP, GLURP, CLRP, NARP, BGRP, KRP, CARP #### [address] [address] HCO3 (Bld) [Moles/Vol] 24.6 mmol/L Normal 21.0-29.0 A [facility] ([place]) Comment on above: Order Comment: CPAP Performed By: #### H CTRP, HGBRP, GLURP, CLRP, NARP, BGRP, KRP, CARP #### [address] [address] Oxygen (Bld) [Partial pressure] 127.1 mm[Hg] High 74.0-108.0 [facility] ([place]) Comment on above: Order Comment: CPAP Performed By: #### H CTRP, HGBRP, GLURP, CLRP, NARP, BGRP, KRP, CARP #### [address] [address] Oxygen saturation in Blood 98.4 % High 92.0-96.0 [facility] ([place]) Comment on above: Order Comment: CPAP Performed By: #### H CTRP, HGBRP, GLURP, CLRP, NARP, BGRP, KRP, CARP #### [address] [address] pCO2 45.6 mmHg Normal 32.0-46.0 [facility] ([place]) Comment on above: Order Comment: CPAP Performed By: #### H CTRP, HGBRP, GLURP, CLRP, NARP, BGRP, KRP, CARP #### [address] [address] pH (Bld) 7.350 [pH] Low 7.380-7.460 [facility] ([place]) Comment on above: Order Comment: CPAP Performed By: #### H CTRP, HGBRP, GLURP, CLRP, NARP, BGRP, KRP, CARP #### [address] [address] Barometric Pressure 709 mmHg Normal [facility] ([place]) Comment on above: Performed By: #### H CTRP, HGBRP, GLURP, CLRP, NARP, BGRP, KRP, CARP #### [address] [address] Base excess Calc (Bld) [Moles/Vol] -1.4000 mmol/L Normal [facility] ([place]) Comment on above: Performed By: #### H CTRP, HGBRP, GLURP, CLRP, NARP, BGRP, KRP, CARP #### [address] [address] HCO3 (Bld) [Moles/Vol] 24.3 mmol/L Normal 21.0-29.0 A [facility] ([place]) Comment on above: Performed By: #### H CTRP, HGBRP, GLURP, CLRP, NARP, BGRP, KRP, CARP #### [address] [address] Oxygen (Bld) [Partial pressure] 118.0 mm[Hg] High 74.0-108.0 [facility] ([place]) Comment on above: Performed By: #### H CTRP, HGBRP, GLURP, CLRP, NARP, BGRP, KRP, CARP #### [address] [address] Oxygen saturation in Blood 98.2 % High 92.0-96.0 [facility] ([place]) Comment on above: Performed By: #### H CTRP, HGBRP, GLURP, CLRP, NARP, BGRP, KRP, CARP #### [address] [address] pCO2 44.8 mmHg Normal 32.0-46.0 [facility] ([place]) Comment on above: Performed By: #### H CTRP, HGBRP, GLURP, CLRP, NARP, BGRP, KRP, CARP #### [address] [address] pH (Bld) 7.352 [pH] Low 7.380-7.460 [facility] ([place]) Comment on above: Performed By: #### H CTRP, HGBRP, GLURP, CLRP, NARP, BGRP, KRP, CARP #### [address] [address] Barometric Pressure 706 mmHg Normal [facility] ([place]) Comment on above: Performed By: #### B G #### [address] [address] Base excess Calc (Bld) [Moles/Vol] -2.3000 mmol/L Normal [facility] ([place]) Comment on above: Performed By: #### B G #### [address] [address] CO2 [Moles/Vol] 24.6 mmol/L Normal 22.0-30.0 [facility] ([place]) Comment on above: Performed By: #### B G #### [place] [address] HCO3 (Bld) [Moles/Vol] 23.3 mmol/L Normal 21.0-29.0 A [facility] ([place]) Comment on above: Performed By: #### B G #### [place] [address] Oxygen (Bld) [Partial pressure] 98.4 mm[Hg] Normal 74.0-108.0 [facility] ([place]) Comment on above: Performed By: #### B G #### [place] [address] Oxygen saturation in Blood 97.4 % High 92.0-96.0 [facility] ([place]) Comment on above: Performed By: #### B G #### [place] [address] pCO2 43.4 mmHg Normal 32.0-46.0 [facility] ([place]) Comment on above: Performed By: #### B G #### [place] [address] pH (Bld) 7.348 [pH] Low 7.380-7.460 [facility] ([place]) Comment on above: Performed By: #### B G #### [place] [address] BGOrdered By: SYSTEM SYSTEM on 11-23-2021 CO2 [Moles/Vol] 25.7 mmol/L Normal 22.0-30.0 [facility] Rapid Comm SS Comment on above: Performed By: #### H CTRP, HGBRP, GLURP, CLRP, NARP, BGRP, KRP, CARP #### [place] [address] Performed By: #### K #### [place] [address] BGRPon 11-23-2021 Base Excess - POC -2.6 mmol/L Normal [facility] ([place]) Comment on above: Performed By: #### H CTRP, HGBRP, GLURP, CLRP, NARP, BGRP, KRP, CARP #### [address] [address] CO2 [Moles/Vol] 23.5 mmol/L Normal 22.0-30.0 [facility] ([place]) Comment on above: Performed By: #### H CTRP, HGBRP, GLURP, CLRP, NARP, BGRP, KRP, CARP #### [place] [id number] HCO3 (Bld) [Moles/Vol] 22.3 mmol/L Normal 21.0-29.0 A [facility] ([place]) Comment on above: Performed By: #### H CTRP, HGBRP, GLURP, CLRP, NARP, BGRP, KRP, CARP #### [place] [address] Oxygen saturation in Blood 97.8 % High 92.0-96.0 [facility] ([place]) Comment on above: Performed By: #### H CTRP, HGBRP, GLURP, CLRP, NARP, BGRP, KRP, CARP #### [address] [address] PCO2 - POC 38.7 mmHg Normal 32.0-46.0 [facility] ([place]) Comment on above: Performed By: #### H CTRP, HGBRP, GLURP, CLRP, NARP, BGRP, KRP, CARP #### [place] [id number] pH (poct) - POC 7.378 Low 7.380-7.460 [facility] ([place]) Comment on above: Performed By: #### H CTRP, HGBRP, GLURP, CLRP, NARP, BGRP, KRP, CARP #### [place] [id number] PO2 - POC 123.0 mmHg High 74.0-108.0 [facility] ([place]) Comment on above: Performed By: #### H CTRP, HGBRP, GLURP, CLRP, NARP, BGRP, KRP, CARP #### [place] [id number] Base Excess - POC -3.2 mmol/L Normal [facility] ([place]) Comment on above: Performed By: #### H CTRP, HGBRP, GLURP, CLRP, NARP, BGRP, KRP, CARP #### [address] [address] CO2 [Moles/Vol] 22.8 mmol/L Normal 22.0-30.0 [facility] ([place]) Comment on above: Performed By: #### H CTRP, HGBRP, GLURP, CLRP, NARP, BGRP, KRP, CARP #### [place] [id number] HCO3 (Bld) [Moles/Vol] 21.7 mmol/L Normal 21.0-29.0 A [facility] ([place]) Comment on above: Performed By: #### H CTRP, HGBRP, GLURP, CLRP, NARP, BGRP, KRP, CARP #### [place] [id number] Oxygen saturation in Blood 99.2 % High 92.0-96.0 [facility] ([place]) Comment on above: Performed By: #### H CTRP, HGBRP, GLURP, CLRP, NARP, BGRP, KRP, CARP #### [place] [id number] PCO2 - POC 37.9 mmHg Normal 32.0-46.0 [facility] ([place]) Comment on above: Performed By: #### H CTRP, HGBRP, GLURP, CLRP, NARP, BGRP, KRP, CARP #### [address] [address] pH (poct) - POC 7.375 Low 7.380-7.460 [facility] ([place]) Comment on above: Performed By: #### H CTRP, HGBRP, GLURP, CLRP, NARP, BGRP, KRP, CARP #### [place] [id number] PO2 - POC 428.4 mmHg High 74.0-108.0 [facility] ([place]) Comment on above: Performed By: #### H CTRP, HGBRP, GLURP, CLRP, NARP, BGRP, KRP, CARP #### [address] [address] Base Excess - POC -0.5 mmol/L Normal [facility] ([place]) Comment on above: Performed By: #### K #### [place] [id number] Oxygen saturation in Blood 99.0 % High 92.0-96.0 [facility] ([place]) Comment on above: Performed By: #### K #### [place] [address] PCO2 - POC 41.5 mmHg Normal 32.0-46.0 [facility] ([place]) Comment on above: Performed By: #### K #### [place] [id number] pH (poct) - POC 7.388 Normal 7.380-7.460 [facility] ([place]) Comment on above: Performed By: #### K #### [place] [address] PO2 - POC 450.3 mmHg High 74.0-108.0 [facility] ([place]) Comment on above: Performed By: #### K #### [place] [address] Base Excess - POC -1.4 mmol/L Normal [facility] ([place]) Comment on above: Performed By: #### H CTRP, HGBRP, GLURP, CLRP, NARP, BGRP, KRP, CARP #### [address] [address] CO2 [Moles/Vol] 24.0 mmol/L Normal 22.0-30.0 [facility] ([place]) Comment on above: Performed By: #### H CTRP, HGBRP, GLURP, CLRP, NARP, BGRP, KRP, CARP #### [address] [address] HCO3 (Bld) [Moles/Vol] 22.8 mmol/L Normal 21.0-29.0 A [facility] ([place]) Comment on above: Performed By: #### H CTRP, HGBRP, GLURP, CLRP, NARP, BGRP, KRP, CARP #### [address] [address] Oxygen saturation in Blood 99.4 % High 92.0-96.0 [facility] ([place]) Comment on above: Performed By: #### H CTRP, HGBRP, GLURP, CLRP, NARP, BGRP, KRP, CARP #### [place] [id number] PCO2 - POC 36.7 mmHg Normal 32.0-46.0 [facility] ([place]) Comment on above: Performed By: #### H CTRP, HGBRP, GLURP, CLRP, NARP, BGRP, KRP, CARP #### [place] [id number] pH (poct) - POC 7.412 Normal 7.380-7.460 [facility] ([place]) Comment on above: Performed By: #### H CTRP, HGBRP, GLURP, CLRP, NARP, BGRP, KRP, CARP #### [address] [address] PO2 - POC 386.4 mmHg High 74.0-108.0 [facility] ([place]) Comment on above: Performed By: #### H CTRP, HGBRP, GLURP, CLRP, NARP, BGRP, KRP, CARP #### [place] [id number] Base Excess - POC -0.6 mmol/L Normal [facility] ([place]) Comment on above: Performed By: #### H CTRP, HGBRP, GLURP, CLRP, NARP, BGRP, KRP, CARP #### [place] [id number] CO2 [Moles/Vol] 25.9 mmol/L Normal 22.0-30.0 [facility] ([place]) Comment on above: Performed By: #### H CTRP, HGBRP, GLURP, CLRP, NARP, BGRP, KRP, CARP #### [place] [address] HCO3 (Bld) [Moles/Vol] 24.6 mmol/L Normal 21.0-29.0 A [facility] ([place]) Comment on above: Performed By: #### H CTRP, HGBRP, GLURP, CLRP, NARP, BGRP, KRP, CARP #### [place] [address] Oxygen saturation in Blood 99.4 % High 92.0-96.0 [facility] ([place]) Comment on above: Performed By: #### H CTRP, HGBRP, GLURP, CLRP, NARP, BGRP, KRP, CARP #### [place] [address] PCO2 - POC 42.3 mmHg Normal 32.0-46.0 [facility] ([place]) Comment on above: Performed By: #### H CTRP, HGBRP, GLURP, CLRP, NARP, BGRP, KRP, CARP #### [place] [address] pH (poct) - POC 7.382 Normal 7.380-7.460 [facility] ([place]) Comment on above: Performed By: #### H CTRP, HGBRP, GLURP, CLRP, NARP, BGRP, KRP, CARP #### [place] [address] PO2 - POC 338.4 mmHg High 74.0-108.0 [facility] ([place]) Comment on above: Performed By: #### H CTRP, HGBRP, GLURP, CLRP, NARP, BGRP, KRP, CARP #### [place] [address] BGRPOrdered By: SYSTEM [employer] Voc[employer] on 11-23-2021 HCO3 (Bld) [Moles/Vol] 24.4 mmol/L Normal 21.0-29.0 A [facility] Rapid Comm SS Comment on above: Performed By: #### K #### [address] [address] BMPon 11-23-2021 BUN/Creatinine Ratio 18.9 ratio Normal 10.0-22.0 [facility] ([place]) Comment on above: Performed By: #### H CTRP, HGBRP, GLURP, CLRP, NARP, BGRP, KRP, CARP #### [address] [address] Calcium [Mass/Vol] 8.1 mg/dL Low 8.7-10.4 [facility] ([place]) Comment on above: Performed By: #### H CTRP, HGBRP, GLURP, CLRP, NARP, BGRP, KRP, CARP #### [address] [address] Chloride [Moles/Vol] 108 mmol/L Normal 98-110 [facility] ([place]) Comment on above: Performed By: #### H CTRP, HGBRP, GLURP, CLRP, NARP, BGRP, KRP, CARP #### [address] [address] CO2 [Moles/Vol] 24 mmol/L Normal 22-32 [facility] ([place]) Comment on above: Performed By: #### H CTRP, HGBRP, GLURP, CLRP, NARP, BGRP, KRP, CARP #### [address] [address] Creatinine [Mass/Vol] 0.74 mg/dL Normal 0.50-1.20 [facility] ([place]) Comment on above: Performed By: #### H CTRP, HGBRP, GLURP, CLRP, NARP, BGRP, KRP, CARP #### [address] [address] Electrolyte Balance 9.0 mEq/L Normal 4.0-15.0 [facility] ([place]) Comment on above: Performed By: #### H CTRP, HGBRP, GLURP, CLRP, NARP, BGRP, KRP, CARP #### [address] [address] Glucose [Mass/Vol] 152 mg/dL High 82-115 [facility] ([place]) Comment on above: Performed By: #### H CTRP, HGBRP, GLURP, CLRP, NARP, BGRP, KRP, CARP #### [address] [address] Potassium [Moles/Vol] 4.1 mmol/L Normal 3.5-5.0 [facility] ([place]) Comment on above: Performed By: #### H CTRP, HGBRP, GLURP, CLRP, NARP, BGRP, KRP, CARP #### [address] [address] Sodium [Moles/Vol] 141 mmol/L Normal 136-145 [facility] ([place]) Comment on above: Performed By: #### H CTRP, HGBRP, GLURP, CLRP, NARP, BGRP, KRP, CARP #### [address] [address] Urea nitrogen [Mass/Vol] 14.0 mg/dL Normal 8.0-22.0 [facility] ([place]) Comment on above: Performed By: #### H CTRP, HGBRP, GLURP, CLRP, NARP, BGRP, KRP, CARP #### [address] [address] CAIONon 11-23-2021 Calcium Ionized 1.02 mmol/L Low 1.12-1.32 [facility] ([place]) Comment on above: Performed By: #### H CTRP, HGBRP, GLURP, CLRP, NARP, BGRP, KRP, CARP #### [address] [address] CARPon 11-23-2021 Ionized Calcium - POC 0.99 mmol/L Low 1.12-1.32 Pending sale to [facility] ([place]) Comment on above: Performed By: #### H CTRP, HGBRP, GLURP, CLRP, NARP, BGRP, KRP, CARP #### [place] [address] Ionized Calcium - POC 1.04 mmol/L Low 1.12-1.32 Pending sale to [facility] ([place]) Comment on above: Performed By: #### H CTRP, HGBRP, GLURP, CLRP, NARP, BGRP, KRP, CARP #### [place] [address] Ionized Calcium - POC 0.98 mmol/L Low 1.12-1.32 Pending sale to [facility] ([place]) Comment on above: Performed By: #### K #### [place] [address] Ionized Calcium - POC 1.09 mmol/L Low 1.12-1.32 Pending sale to [facility] ([place]) Comment on above: Performed By: #### H CTRP, HGBRP, GLURP, CLRP, NARP, BGRP, KRP, CARP #### [place] [address] Ionized Calcium - POC 1.17 mmol/L Normal 1.12-1.32 Pending sale to [facility] ([place]) Comment on above: Performed By: #### H CTRP, HGBRP, GLURP, CLRP, NARP, BGRP, KRP, CARP #### [place] [address] CBCon 11-23-2021 Erythrocyte distribution width (RBC) [Ratio] 13.6 % Normal 11.5-15.5 [facility] ([place]) Comment on above: Performed By: #### H CTRP, HGBRP, GLURP, CLRP, NARP, BGRP, KRP, CARP #### [place] [address] Hematocrit (Bld) [Volume fraction] 32.3 % Low 34.0-46.0 [facility] ([place]) Comment on above: Performed By: #### H CTRP, HGBRP, GLURP, CLRP, NARP, BGRP, KRP, CARP #### [place] [address] Hgb 10.7 G/dL Low 12.0-16.0 [facility] ([place]) Comment on above: Performed By: #### H CTRP, HGBRP, GLURP, CLRP, NARP, BGRP, KRP, CARP #### [place] [id number] MCH (RBC) [Entitic mass] 29.8 pg Normal 27.0-33.0 [facility] ([place]) Comment on above: Performed By: #### H CTRP, HGBRP, GLURP, CLRP, NARP, BGRP, KRP, CARP #### [address] [address] MCHC 33.2 G/dL Normal 32.0-36.0 [facility] ([place]) Comment on above: Performed By: #### H CTRP, HGBRP, GLURP, CLRP, NARP, BGRP, KRP, CARP #### [place] [address] MCV (RBC) [Entitic vol] 89.9 fL Normal 80.0-99.0 A [facility] ([place]) Comment on above: Performed By: #### H CTRP, HGBRP, GLURP, CLRP, NARP, BGRP, KRP, CARP #### [place] [address] Platelet 220 10 3/mcL Normal 150-450 [facility] ([place]) Comment on above: Performed By: #### H CTRP, HGBRP, GLURP, CLRP, NARP, BGRP, KRP, CARP #### [place] [address] Platelet mean volume (Bld) [Entitic vol] 8.6 fL Normal 6.6-10.5 [facility] ([place]) Comment on above: Performed By: #### H CTRP, HGBRP, GLURP, CLRP, NARP, BGRP, KRP, CARP #### [place] [address] RBC 3.60 10 6/mcL Low 4.10-5.30 [facility] ([place]) Comment on above: Performed By: #### H CTRP, HGBRP, GLURP, CLRP, NARP, BGRP, KRP, CARP #### [address] [address] WBC 22.5 10 3/mcL High 4.5-10.8 [facility] ([place]) Comment on above: Performed By: #### H CTRP, HGBRP, GLURP, CLRP, NARP, BGRP, KRP, CARP #### [address] [address] CLRPon 11-23-2021 Chloride [Moles/Vol] 102 mmol/L Normal 98-110 [facility] ([place]) Comment on above: Performed By: #### H CTRP, HGBRP, GLURP, CLRP, NARP, BGRP, KRP, CARP #### [address] [address] Chloride [Moles/Vol] 100 mmol/L Normal 98-110 [facility] ([place]) Comment on above: Performed By: #### H CTRP, HGBRP, GLURP, CLRP, NARP, BGRP, KRP, CARP #### [address] [address] Chloride [Moles/Vol] 100 mmol/L Normal 98-110 [facility] ([place]) Comment on above: Performed By: #### K #### [address] [address] Chloride [Moles/Vol] 103 mmol/L Normal 98-110 [facility] ([place]) Comment on above: Performed By: #### H CTRP, HGBRP, GLURP, CLRP, NARP, BGRP, KRP, CARP #### [address] [address] Chloride [Moles/Vol] 102 mmol/L Normal 98-110 [facility] ([place]) Comment on above: Performed By: #### H CTRP, HGBRP, GLURP, CLRP, NARP, BGRP, KRP, CARP #### [address] [address] FIBon 11-23-2021 Fibrinogen 313 mg/dL Normal 250-560 [facility] ([place]) Comment on above: Performed By: #### H CTRP, HGBRP, GLURP, CLRP, NARP, BGRP, KRP, CARP #### [address] [address] Fibrinogen 491 mg/dL Normal 250-560 [facility] ([place]) Comment on above: Performed By: #### H CTRP, HGBRP, GLURP, CLRP, NARP, BGRP, KRP, CARP #### [address] [address] GLURPon 11-23-2021 Glucose [Mass/Vol] 183 mg/dL High 82-115 [facility] ([place]) Comment on above: Performed By: #### H CTRP, HGBRP, GLURP, CLRP, NARP, BGRP, KRP, CARP #### [address] [address] Glucose [Mass/Vol] 203 mg/dL High 82-115 [facility] ([place]) Comment on above: Performed By: #### H CTRP, HGBRP, GLURP, CLRP, NARP, BGRP, KRP, CARP #### [address] [address] Glucose [Mass/Vol] 201 mg/dL High 82-115 [facility] ([place]) Comment on above: Performed By: #### H CTRP, HGBRP, GLURP, CLRP, NARP, BGRP, KRP, CARP #### [address] [address] Glucose [Mass/Vol] 150 mg/dL High 82-115 [facility] ([place]) Comment on above: Performed By: #### H CTRP, HGBRP, GLURP, CLRP, NARP, BGRP, KRP, CARP #### [address] [address] GLURPOrdered By: SYSTEM SYST EM on 11-23-2021 Glucose [Mass/Vol] 204 mg/dL High 82-115 Rap id Comm SS Comment on above: Performed By: #### K #### [place] [address] HCTRPon 11-23-2021 Hematocrit (Bld) [Volume fraction] 29.0 % Low 37.0-47.0 [facility] ([place]) Comment on above: Performed By: #### H CTRP, HGBRP, GLURP, CLRP, NARP, BGRP, KRP, CARP #### [place] [address] Hematocrit (Bld) [Volume fraction] 29.0 % Low 37.0-47.0 [facility] ([place]) Comment on above: Performed By: #### H CTRP, HGBRP, GLURP, CLRP, NARP, BGRP, KRP, CARP #### [place] [address] Hematocrit (Bld) [Volume fraction] 37.0 % Normal 37.0-47.0 [facility] ([place]) Comment on above: Performed By: #### H CTRP, HGBRP, GLURP, CLRP, NARP, BGRP, KRP, CARP #### [place] [address] Hematocrit (Bld) [Volume fraction] 40.0 % Normal 37.0-47.0 [facility] ([place]) Comment on above: Performed By: #### H CTRP, HGBRP, GLURP, CLRP, NARP, BGRP, KRP, CARP #### [place] [address] HCTRPOrdered By: SYSTEM SYST EM on 11-23-2021 Hematocrit (Bld) [Volume fraction] 28.0 % Low 37.0-47.0 Rapid Comm SS Comment on above: Performed By: #### K #### [place] [address] HGBRPon 11-23-2021 Hemoglobin (POC) 9.8 G/dL Low 12.0-16.0 [facility] ([place]) Comment on above: Performed By: #### H CTRP, HGBRP, GLURP, CLRP, NARP, BGRP, KRP, CARP #### [address] [address] Hemoglobin (POC) 9.9 G/dL Low 12.0-16.0 [facility] ([place]) Comment on above: Performed By: #### H CTRP, HGBRP, GLURP, CLRP, NARP, BGRP, KRP, CARP #### [place] [id number] Hemoglobin (POC) 9.5 G/dL Low 12.0-16.0 [facility] ([place]) Comment on above: Performed By: #### K #### [place] [address] Hemoglobin (POC) 12.5 G/dL Normal 12.0-16.0 [facility] ([place]) Comment on above: Performed By: #### H CTRP, HGBRP, GLURP, CLRP, NARP, BGRP, KRP, CARP #### [place] [address] Hemoglobin (POC) 13.7 G/dL Normal 12.0-16.0 [facility] ([place]) Comment on above: Performed By: #### H CTRP, HGBRP, GLURP, CLRP, NARP, BGRP, KRP, CARP #### [place] [id number] [place] 11-23-2021 Potassium [Moles/Vol] 4.2 mmol/L Normal 3.5-5.0 [facility] ([place]) Comment on above: Performed By: #### H CTRP, HGBRP, GLURP, CLRP, NARP, BGRP, KRP, CARP #### [place] [address] KRPon 11-23-2021 Potassium [Moles/Vol] 4.2 mmol/L Normal 3.5-5.0 [facility] ([place]) Comment on above: Performed By: #### H CTRP, HGBRP, GLURP, CLRP, NARP, BGRP, KRP, CARP #### [place] [address] Potassium [Moles/Vol] 4.3 mmol/L Normal 3.5-5.0 [facility] ([place]) Comment on above: Performed By: #### H CTRP, HGBRP, GLURP, CLRP, NARP, BGRP, KRP, CARP #### [place] [address] Potassium [Moles/Vol] 4.2 mmol/L Normal 3.5-5.0 [facility] ([place]) Comment on above: Performed By: #### H CTRP, HGBRP, GLURP, CLRP, NARP, BGRP, KRP, CARP #### [place] [address] Potassium [Moles/Vol] 3.9 mmol/L Normal 3.5-5.0 [facility] ([place]) Comment on above: Performed By: #### H CTRP, HGBRP, GLURP, CLRP, NARP, BGRP, KRP, CARP #### [place] [address] KRPOrdered By: SYSTEM SYSTEM on 11-23-2021 Potassium [Moles/Vol] 5.1 mmol/L High 3.5-5.0 AH Rapid Comm SS Comment on above: Performed By: #### K #### [place] [address] LABORATORYOrdered By: Angie Mujica on 11-23-2021 aPTT [...] 1.32 mmol/L Auto Chem SS LABORATORYOrdered By: [employer] SYSTEM on 11-23-2021 Magnesium [Mass/Vol] 2.5 mg/dL [...] [Mass/Vol] 2.5 mg/dL High 1.6-2.4 [facility] ([place]) Comment on above: Performed By: #### H CTRP, HGBRP, GLURP, CLRP, NARP, BGRP, KRP, CARP #### [facility] [address] [place] [address] NARPon 11-23-2021 Sodium [Moles/Vol] 134 mmol/L Low 136-145 [facility] ([place]) Comment on above: Performed By: #### H CTRP, HGBRP, GLURP, CLRP, NARP, BGRP, KRP, CARP #### [place] [id number] Sodium [Moles/Vol] 132 mmol/L Low 136-145 [facility] ([place]) Comment on above: Performed By: #### H CTRP, HGBRP, GLURP, CLRP, NARP, BGRP, KRP, CARP #### [place] [address] Sodium [Moles/Vol] 132 mmol/L Low 136-145 [facility] ([place]) Comment on above: Performed By: #### K #### [place] [address] Sodium [Moles/Vol] 134 mmol/L Low 136-145 [facility] ([place]) Comment on above: Performed By: #### H CTRP, HGBRP, GLURP, CLRP, NARP, BGRP, KRP, CARP #### [place] [address] Sodium [Moles/Vol] 136 mmol/L Normal 136-145 [facility] ([place]) Comment on above: Performed By: #### H CTRP, HGBRP, GLURP, CLRP, NARP, BGRP, KRP, CARP #### [place] [address] PHOSon 11-23-2021 Phosphate [Mass/Vol] 1.5 mg/dL Low 2.4-5.1 [facility] ([place]) Comment on above: Result Comment: No te - New Reference Range in effect 19 Performed By: #### H CTRP, HGBRP, GLURP, CLRP, NARP, BGRP, KRP, CARP #### [place] [address] PLTon 11-23-2021 Platelet 283 10 3/mcL Normal 150-450 [facility] ([place]) Comment on above: Performed By: #### H CTRP, HGBRP, GLURP, CLRP, NARP, BGRP, KRP, CARP #### [place] [address] PROon 11-23-2021 INR Coag (PPP) [Relative time] 1.1 {INR} Normal [facility] ([place]) Comment on above: Result Comment: [employer] (CHEST, 1991, 102:312S-25S) recommended therapeutic range for oral anticoagulant therapy is: LOW RISK: Prophylaxis of venous thrombosis INR: 2.0-3.0 Treatment of pulmonary embolism 2.0-3.0 Prevention of systemic embolism 2.0-3.0 HIGH RISK: Mechanical prosthetic valves 2.5-3.5 Performed By: #### H CTRP, HGBRP, GLURP, CLRP, NARP, BGRP, KRP, CARP #### [facility] [address] [place] [address] PT Coag (PPP) [Time] 13.1 s Normal 9.0-14.9 [facility] ([place]) Comment on above: Result Comment: Effe ctive 09/30/07, Protime results may be affected by some antibiotics (i.e. Ciprofloxacin, Azithromycin, Bactrim) which may potentiate the action of oral anticoagulants, with further increases in Protime/INR. Performed By: #### H CTRP, HGBRP, GLURP, CLRP, NARP, BGRP, KRP, CARP #### [address] [address] INR Coag (PPP) [Relative time] 0.9 {INR} Normal [facility] ([place]) Comment on above: Result Comment: [employer] (CHEST, 1991, 102:312S-25S) recommended therapeutic range for oral anticoagulant therapy is: LOW RISK: Prophylaxis of venous thrombosis INR: 2.0-3.0 Treatment of pulmonary embolism 2.0-3.0 Prevention of systemic embolism 2.0-3.0 HIGH RISK: Mechanical prosthetic valves 2.5-3.5 Performed By: #### H CTRP, HGBRP, GLURP, CLRP, NARP, BGRP, KRP, CARP #### [facility] [address] [place] [address] PT Coag (PPP) [Time] 10.8 s Normal 9.0-14.9 [facility] ([place]) Comment on above: Result Comment: Effe ctive 09/30/07, Protime results may be affected by some antibiotics (i.e. Ciprofloxacin, Azithromycin, Bactrim) which may potentiate the action of oral anticoagulants, with further increases in Protime/INR. Performed By: #### H CTRP, HGBRP, GLURP, CLRP, NARP, BGRP, KRP, CARP #### [address] [address] Platelet (Product)on Platelet Product Ready Platelet Ready fo r Pickup Normal [facility] ([place]) Comment on above: Order Comment: ON HO LD FOR CVOR Performed By: #### H CTRP, HGBRP, GLURP, CLRP, NARP, BGRP, KRP, CARP #### [address] [address] RBC (Product)on 11-23-2021 RBC Product Ready RBC Ready for Pickup Normal [facility] ([place]) Comment on above: Performed By: #### H CTRP, HGBRP, GLURP, CLRP, NARP, BGRP, KRP, CARP #### [address] [address] XR CHEST 1 VIEWon 11-23-2021 XR CHEST [...] PM Ordering Provider: POLLY Mercado [facility] ([place]) [id number] 11-17-2021 SARS-CoV-2 (COVID-19) RNA SLOAN+probe Ql (Unsp spec) Negative Normal Negative [facility] ([place]) Comment on above: Performed By: #### H CTRP, HGBRP, GLURP, CLRP, NARP, BGRP, KRP, CARP #### [address] [address] SARS-CoV-2 (COVID-19) RNA SLOAN+probe Ql (Unsp spec) Normal [facility] ([place]) Comment on above: Result Comment: Nega tive [...] GLURP, CLRP, NARP, BGRP, KRP, CARP #### [address] [address] Date of Onset [id number] Invalid Interpretation Code [facility] ([place]) Comment on above: Performed By: #### H CTRP, HGBRP, GLURP, CLRP, NARP, BGRP, KRP, CARP #### [place] [address] Employed in Healthcare [facility] ([place]) Comment on above: Performed By: #### H CTRP, HGBRP, GLURP, CLRP, NARP, BGRP, KRP, CARP #### [place] [address] First Test No [facility] ([place]) Comment on above: Performed By: #### H CTRP, HGBRP, GLURP, CLRP, NARP, BGRP, KRP, CARP #### [place] [address] Hospitalized No [facility] ([place]) Comment on above: Performed By: #### H CTRP, HGBRP, GLURP, CLRP, NARP, BGRP, KRP, CARP #### [place] [address] ICU No [facility] ([place]) Comment on above: Performed By: #### H CTRP, HGBRP, GLURP, CLRP, NARP, BGRP, KRP, CARP #### [place] [address] Not [facility] ([place]) Comment on above: Performed By: #### H CTRP, HGBRP, GLURP, CLRP, NARP, BGRP, KRP, CARP #### [place] [address] Resides in Congregate Care Setting [facility] ([place]) Comment on above: Performed By: #### H CTRP, HGBRP, GLURP, CLRP, NARP, BGRP, KRP, CARP #### [place] [address] Symptomatic as Defined by [facility] No [facility] ([place]) Comment on above: Performed By: #### H CTRP, HGBRP, GLURP, CLRP, NARP, BGRP, KRP, CARP #### [place] [address] LABORATORYOrdered By: Emily Gee on 11-17-2021 ADMITTED [...] [#/Vol] 3.11 10*3/uL 0.83-4.[address] [facility] Work Phone: Basophil percentageon 2021 Basophils/100 WBC (Bld) 0.6 % 0-[address] [facility] Work Phone: Chloride [Moles/Vol] 102 mmol/L 98-107 [facility] Work Phone: Eosinophils/100 WBC (Bld) 1.7 % 0-[address] [facility] Work Phone: Glucose [Mass/Vol] 183 mg/dL 74-106 [facility] Work Phone: Comment on above: Fasting Glucose resu lt greater than or equal to 126 mg/dL suggests DIABETES MELLITUS per A.D.A. criteria. Neutrophils (Bld) [#/Vol] 11.0 10*3/uL 2.0-7.[address] [facility] Work Phone: Neutrophils/100 WBC (Bld) 70.1 % 47-[address] [facility] Work Phone: Potassium [Moles/Vol] 4.1 mmol/L 3.5-5.1 [facility] Work Phone: Sodium [Moles/Vol] 136 mmol/L 136-145 [facility] Work Phone: WBC (Bld) [#/Vol] 15.7 10*3/uL 4.4-11.0 [facility] Work Phone: Blood erythrocytes count (nu mber/volume)on 11-05-2021 RBC (Bld) [#/Vol] 4.84 10*6/uL 4.2-5.4 [facility] Work Phone: Blood hemoglobin measurement (mass/volume)on 11-05-2021 Hemoglobin (Bld) [Mass/Vol] 14.4 g/dL 12.0-15.[address] [facility] Work Phone: Blood lymphocytes/100 leukoc yteson 11-05-2021 Lymphocytes/100 WBC (Bld) 19.8 % 19-[address] [facility] Work Phone: Blood monocytes/100 leukocyt eson 11-05-2021 Monocytes/100 WBC (Bld) 6.9 % 0-[address] [facility] Work Phone: Blood platelet mean volumeon 11-05-2021 Platelet mean volume (Bld) [Entitic vol] 10.2 fL 6.2-12.[address] [facility] Work Phone: Determination of erythrocyte mean corpuscular volume (MCV)on 11-05-2021 MCV (RBC) [Entitic vol] 91.3 fL 81-[address] [facility] Work Phone: Hematocrit Auto (Bld) [Volum e fraction]on 11-05-2021 Hematocrit (Bld) [Volume fraction] 44.2 % 37-[address] [facility] Work Phone: Laboratory - Chemistry and C hemistry - challengeon 11-05-2021 CO2 [Moles/Vol] 27.0 mmol/L 21.0-32.[address] [facility] Work Phone: Urea nitrogen/Creatinine [Mass ratio] 19.9 mg/mg 10-[address] [facility] Work Phone: Laboratory - Coagulationon 0 11-05-2021 aPTT Coag (Bld) [Time] 25.6 s 24.1-36.2 Wo [facility] Work Phone: Laboratory - Hematology and Cell countson 11-05-2021 Erythrocyte distribution width (RBC) [Entitic vol] 44.1 fL 35.1-43.[address] [facility] Work Phone: Erythrocyte distribution width (RBC) [Ratio] 13.1 % 11.6-14.[address] [facility] Work Phone: Immature granulocytes/100 WBC (Bld) 0.900 % 0.0-0.[address] [facility] Work Phone: Comment on above: IG% - Immature Granu locytes (promyelocytes, myelocytes and metamyelocytes) > 1% indicates that a LEFT SHIFT is Present. MCH (RBC) [Entitic mass] 29.8 pg 27.0-32.[address] [facility] Work Phone: [phone] Nucleated RBC/100 WBC (Bld) [Ratio] 0 % 0-[address] [facility] Work Phone: [phone] MCHC Auto (RBC) [Mass/Vol]on 11-05-2021 MCHC (RBC) [Mass/Vol] 32.6 g/dL 32-36 [facility] Work Phone: No Panel Informationon 11-05 Estimated Creatinine Clearance Calc 51.75 ml/min [facility] Work Phone: [phone] Estimated GFR (MDRD) Amer 91 mL/min >[address] [facility] Work Phone: Comment on above: GFR Calc Estimated GFR (MDRD) Non-Af Amer 75 mL/min >[address] [facility] Work Phone: [phone] Comment on above: Non- GFR Calc Troponin I High Sensitivity 12 pg/mL 3.0-54.[address] [facility] Work Phone: [phone] Comment on above: Please Note: New [place] t Units and Gender Specific Reference Ranges. For more information see Policy Stat Procedure [place] High Sensitivity Troponin (TNIH) and attachments. Platelets bldon 11-05-2021 Platelets (Bld) [#/Vol] 320 10*3/uL 150-[address] [facility] Work Phone: [phone] Serum or plasma calcium betsy urement (mass/volume)on 11-05-2021 Calcium [Mass/Vol] 9.6 mg/dL 8.5-10.1 [facility] Work Phone: [phone] Serum or plasma creatinine m easurement (mass/volume)on 11-05-2021 Creatinine [Mass/Vol] 0.80 mg/dL 0.55-1.02 [facility] Work Phone: [phone] Comment on above: The validity of the calculated GFR & GFRAA in patients over 70 years has not been determined. Clinical correlation is essential. Serum or plasma urea nitroge n measurement (mass/volume)on 11-05-2021 Urea nitrogen [Mass/Vol] 16 mg/dL -[address] [facility] Work Phone: Thin prep Papanicolaou smear with manual screeningon 11-05-2021 Thin prep Papanicolaou smear with manual screening 7 5-[address] [facility] Work Phone: XR CHEST 2 VIEWSon [...] Date: 11/01/2021 8:01:10 AM Ordering Provider: POLLY PHILIPEP [facility] ([place]) .Auto Diffon 10-31-2021 Basophil, Absolute 0.1 10 3/mcL Normal 0.0-0.3 [facility] ([place]) Comment on above: Performed By: #### H CTRP, HGBRP, GLURP, CLRP, NARP, BGRP, KRP, CARP #### [facility] [address] [place] [address] Basophils/100 WBC (Bld) 0.8 % Normal 0.0-2.5 A [facility] ([place]) Comment on above: Performed By: #### H CTRP, HGBRP, GLURP, CLRP, NARP, BGRP, KRP, CARP #### [address] [address] Eosinophil, Absolute 0.3 10 3/mcL Normal 0.0-0.7 Pending sale to [facility] ([place]) Comment on above: Performed By: #### H CTRP, HGBRP, GLURP, CLRP, NARP, BGRP, KRP, CARP #### [address] [address] Eosinophils/100 WBC (Bld) 2.6 % Normal 0.0-6.0 [facility] ([place]) Comment on above: Performed By: #### H CTRP, HGBRP, GLURP, CLRP, NARP, BGRP, KRP, CARP #### [address] [address] Lymphocyte, Absolute 2.5 10 3/mcL Normal 0.9-4.3 [facility]ending [facility] to [facility] ([place]) Comment on above: Performed By: #### H CTRP, HGBRP, GLURP, CLRP, NARP, BGRP, KRP, CARP #### [address] [address] Lymphocytes/100 WBC (Bld) 22.3 % Normal 20.0-40.0 [facility] ([place]) Comment on above: Performed By: #### H CTRP, HGBRP, GLURP, CLRP, NARP, BGRP, KRP, CARP #### [address] [address] Monocyte, Absolute 0.7 10 3/mcL Normal 0.1-1.4 [facility] ([place]) Comment on above: Performed By: #### H CTRP, HGBRP, GLURP, CLRP, NARP, BGRP, KRP, CARP #### [address] [address] Monocytes/100 WBC (Bld) 6.5 % Normal 2.0-13.0 [facility] ([place]) Comment on above: Performed By: #### H CTRP, HGBRP, GLURP, CLRP, NARP, BGRP, KRP, CARP #### [address] [address] Neutrophils/100 WBC (Bld) 67.8 % Normal 50.0-75.0 [facility] ([place]) Comment on above: Performed By: #### H CTRP, HGBRP, GLURP, CLRP, NARP, BGRP, KRP, CARP #### [address] [address] .GFRon 10-31-2021 GFR Non- >60 Normal [facility] ([place]) Comment on above: Result Comment: GFR Population [...] GLURP, CLRP, NARP, BGRP, KRP, CARP #### [address] [address] GFR >60 Normal [facility] ([place]) Comment on above: Result Comment: GFR Population [...] GLURP, CLRP, NARP, BGRP, KRP, CARP #### [place] [address] .MDWon 10-31-2021 Monocyte Distribution Width Not performed Normal 0.00-20.00 [facility] ([place]) Comment on above: Result Comment: MDW testing performed only on adult ER patients between the ages of 18-89 years. Performed By: #### H CTRP, HGBRP, GLURP, CLRP, NARP, BGRP, KRP, CARP #### [place] [address] .NEUABSon 10-31-2021 Neutrophil, Absolute 7.7 10 3/mcL Normal 2.3-8.1 [facility]ending [facility] to [facility] ([place]) Comment on above: Performed By: #### H CTRP, HGBRP, GLURP, CLRP, NARP, BGRP, KRP, CARP #### [place] [address] A1Con 10-31-2021 HbA1c (Bld) [Mass fraction] 9.7 % High 4.0-6.0 [facility] ([place]) Comment on above: Performed By: #### H CTRP, HGBRP, GLURP, CLRP, NARP, BGRP, KRP, CARP #### [place] [address] ABO/Rh (Gel)on 10-31-2021 ABO/Rh Interp Positive Invalid Interpretation Code [facility] ([place]) Comment on above: Performed By: #### H CTRP, HGBRP, GLURP, CLRP, NARP, BGRP, KRP, CARP #### [place] [id number] ABS (Gel)on 10-31-2021 ABSC Interp (Gel) Negative Normal [facility] ([place]) Comment on above: Performed By: #### H CTRP, HGBRP, GLURP, CLRP, NARP, BGRP, KRP, CARP #### [place] [id number] APTTon 10-31-2021 aPTT Coag (Bld) [Time] 28.2 s Normal 25.0-35.0 [facility]ending [facility] to [facility] ([place]) Comment on above: Result Comment: For Heparin anticoagulation therapy, the recommended therapeutic range is: 54-77 seconds (APTT Correlation with Anti-Xa therapeutic range of 0.3-0.7 units/ml). PLEASE REFERENCE THE PHARMACY PROTOCOL FOR DOSING. Performed By: #### H CTRP, HGBRP, GLURP, CLRP, NARP, BGRP, KRP, CARP #### [place] [address] Heparin dose (APTT) None Normal [facility] ([place]) Comment on above: Performed By: #### H CTRP, HGBRP, GLURP, CLRP, NARP, BGRP, KRP, CARP #### [place] [address] CBCon 10-31-2021 Erythrocyte distribution width (RBC) [Ratio] 13.6 % Normal 11.5-15.5 [facility] ([place]) Comment on above: Performed By: #### H CTRP, HGBRP, GLURP, CLRP, NARP, BGRP, KRP, CARP #### [place] [address] Hematocrit (Bld) [Volume fraction] 40.5 % Normal 34.0-46.0 [facility] ([place]) Comment on above: Performed By: #### H CTRP, HGBRP, GLURP, CLRP, NARP, BGRP, KRP, CARP #### [place] [address] Hgb 13.4 G/dL Normal 12.0-16.0 [facility] ([place]) Comment on above: Performed By: #### H CTRP, HGBRP, GLURP, CLRP, NARP, BGRP, KRP, CARP #### [place] [address] MCH (RBC) [Entitic mass] 29.8 pg Normal 27.0-33.0 [facility] ([place]) Comment on above: Performed By: #### H CTRP, HGBRP, GLURP, CLRP, NARP, BGRP, KRP, CARP #### [place] [id number] MCHC 33.1 G/dL Normal 32.0-36.0 [facility] ([place]) Comment on above: Performed By: #### H CTRP, HGBRP, GLURP, CLRP, NARP, BGRP, KRP, CARP #### [place] [address] MCV (RBC) [Entitic vol] 90.0 fL Normal 80.0-99.0 A [facility] ([place]) Comment on above: Performed By: #### H CTRP, HGBRP, GLURP, CLRP, NARP, BGRP, KRP, CARP #### [place] [address] Platelet 291 10 3/mcL Normal 150-450 [facility] ([place]) Comment on above: Performed By: #### H CTRP, HGBRP, GLURP, CLRP, NARP, BGRP, KRP, CARP #### [place] [address] Platelet mean volume (Bld) [Entitic vol] 8.9 fL Normal 6.6-10.5 [facility] ([place]) Comment on above: Performed By: #### H CTRP, HGBRP, GLURP, CLRP, NARP, BGRP, KRP, CARP #### [place] [address] RBC 4.50 10 6/mcL Normal 4.10-5.30 [facility] ([place]) Comment on above: Performed By: #### H CTRP, HGBRP, GLURP, CLRP, NARP, BGRP, KRP, CARP #### [place] [address] WBC 11.4 10 3/mcL High 4.5-10.8 [facility] ([place]) Comment on above: Performed By: #### H CTRP, HGBRP, GLURP, CLRP, NARP, BGRP, KRP, CARP #### [address] [address] CMPon 10-31-2021 Albumin Level 3.4 G/dL Normal 3.2-4.8 [facility] ([place]) Comment on above: Performed By: #### H CTRP, HGBRP, GLURP, CLRP, NARP, BGRP, KRP, CARP #### [address] [address] Albumin/Globulin [Mass ratio] 1.0 {ratio} Normal 0.9-1.6 [facility] ([place]) Comment on above: Performed By: #### H CTRP, HGBRP, GLURP, CLRP, NARP, BGRP, KRP, CARP #### [address] [address] ALP [Catalytic activity/Vol] 113 U/L Normal 38-126 [facility] ([place]) Comment on above: Performed By: #### H CTRP, HGBRP, GLURP, CLRP, NARP, BGRP, KRP, CARP #### [address] [address] ALT [Catalytic activity/Vol] 25 U/L Normal 10-49 [facility] ([place]) Comment on above: Performed By: #### H CTRP, HGBRP, GLURP, CLRP, NARP, BGRP, KRP, CARP #### [address] [address] AST [Catalytic activity/Vol] 24 U/L Normal 8-34 [facility] ([place]) Comment on above: Performed By: #### H CTRP, HGBRP, GLURP, CLRP, NARP, BGRP, KRP, CARP #### [address] [address] Bili Total 0.50 mg/dL Normal 0.20-1.20 [facility] ([place]) Comment on above: Result Comment: Use of this assay is not recommended for patients undergoing treatment with eltrombopag due to the potential for falsely elevated results. Performed By: #### H CTRP, HGBRP, GLURP, CLRP, NARP, BGRP, KRP, CARP #### [address] [address] BUN/Creatinine Ratio 27.6 ratio High 10.0-22.0 [facility] ([place]) Comment on above: Performed By: #### H CTRP, HGBRP, GLURP, CLRP, NARP, BGRP, KRP, CARP #### [address] [address] Calcium [Mass/Vol] 9.6 mg/dL Normal 8.7-10.4 [facility] ([place]) Comment on above: Performed By: #### H CTRP, HGBRP, GLURP, CLRP, NARP, BGRP, KRP, CARP #### [address] [address] Chloride [Moles/Vol] 98 mmol/L Normal 98-110 [facility] ([place]) Comment on above: Performed By: #### H CTRP, HGBRP, GLURP, CLRP, NARP, BGRP, KRP, CARP #### [address] [address] CO2 [Moles/Vol] 31 mmol/L Normal 22-32 [facility] ([place]) Comment on above: Performed By: #### H CTRP, HGBRP, GLURP, CLRP, NARP, BGRP, KRP, CARP #### [address] [address] Creatinine [Mass/Vol] 0.76 mg/dL Normal 0.50-1.20 [facility] ([place]) Comment on above: Performed By: #### H CTRP, HGBRP, GLURP, CLRP, NARP, BGRP, KRP, CARP #### [address] [address] Electrolyte Balance 5.0 mEq/L Normal 4.0-15.0 [facility] ([place]) Comment on above: Performed By: #### H CTRP, HGBRP, GLURP, CLRP, NARP, BGRP, KRP, CARP #### [address] [address] Globulin 3.5 G/dL Normal 1.5-3.8 [facility] ([place]) Comment on above: Performed By: #### H CTRP, HGBRP, GLURP, CLRP, NARP, BGRP, KRP, CARP #### [address] [address] Glucose [Mass/Vol] 233 mg/dL High 82-115 [facility] ([place]) Comment on above: Performed By: #### H CTRP, HGBRP, GLURP, CLRP, NARP, BGRP, KRP, CARP #### [address] [address] Potassium [Moles/Vol] 5.0 mmol/L Normal 3.5-5.0 [facility] ([place]) Comment on above: Performed By: #### H CTRP, HGBRP, GLURP, CLRP, NARP, BGRP, KRP, CARP #### [address] [address] Sodium [Moles/Vol] 134 mmol/L Low 136-145 [facility] ([place]) Comment on above: Performed By: #### H CTRP, HGBRP, GLURP, CLRP, NARP, BGRP, KRP, CARP #### [address] [address] Total Protein 6.9 G/dL Normal 5.7-8.2 [facility] ([place]) Comment on above: Result Comment: No te - New Reference Range in effect 19 Performed By: #### H CTRP, HGBRP, GLURP, CLRP, NARP, BGRP, KRP, CARP #### [address] [address] Urea nitrogen [Mass/Vol] 21.0 mg/dL Normal 8.0-22.0 [facility] ([place]) Comment on above: Performed By: #### H CTRP, HGBRP, GLURP, CLRP, NARP, BGRP, KRP, CARP #### [address] [address] FIBon 10-31-2021 Fibrinogen 504 mg/dL Normal 250-560 [facility] ([place]) Comment on above: Performed By: #### H CTRP, HGBRP, GLURP, CLRP, NARP, BGRP, KRP, CARP #### [address] [address] PROon 10-31-2021 INR Coag (PPP) [Relative time] 0.9 {INR} Normal [facility] ([place]) Comment on above: Result Comment: [employer] (CHEST, 1992, 102:312S-25S) recommended therapeutic range for oral anticoagulant therapy is: LOW RISK: Prophylaxis of venous thrombosis INR: 2.0-3.0 Treatment of pulmonary embolism 2.0-3.0 Prevention of systemic embolism 2.0-3.0 HIGH RISK: Mechanical prosthetic valves 2.5-3.5 Performed By: #### H CTRP, HGBRP, GLURP, CLRP, NARP, BGRP, KRP, CARP #### [address] [address] PT Coag (PPP) [Time] 10.9 s Normal 9.0-14.9 [facility] ([place]) Comment on above: Result Comment: Effe ctive 09/30/07, Protime results may be affected by some antibiotics (i.e. Ciprofloxacin, Azithromycin, Bactrim) which may potentiate the action of oral anticoagulants, with further increases in Protime/INR. Performed By: #### H CTRP, HGBRP, GLURP, CLRP, NARP, BGRP, KRP, CARP #### [address] [address] TSHon 10-31-2021 TSH 9.830 mIU/mL High 0.550-4.780 [facility] ([place]) Comment on above: Result Comment: No te - New Reference Range in effect 19 Performed By: #### H CTRP, HGBRP, GLURP, CLRP, NARP, BGRP, KRP, CARP #### [address] [address] UAon 10-31-2021 Color (U) Straw Normal [facility] ([place]) Comment on above: Performed By: #### H CTRP, HGBRP, GLURP, CLRP, NARP, BGRP, KRP, CARP #### [address] [address] Glucose (U) [Mass/Vol] 500 mg/dL Abnormal Negative Pending sale to [facility] ([place]) Comment on above: Performed By: #### H CTRP, HGBRP, GLURP, CLRP, NARP, BGRP, KRP, CARP #### [place] [address] Ketones Ql (U) Negative Normal Neg-Trace [facility] ([place]) Comment on above: Performed By: #### H CTRP, HGBRP, GLURP, CLRP, NARP, BGRP, KRP, CARP #### [place] [address] UA Appear Clear Normal Clear [facility] ([place]) Comment on above: Performed By: #### H CTRP, HGBRP, GLURP, CLRP, NARP, BGRP, KRP, CARP #### [place] [address] UA Blood Negative Normal Neg-Trace [facility] ([place]) Comment on above: Performed By: #### H CTRP, HGBRP, GLURP, CLRP, NARP, BGRP, KRP, CARP #### [place] [id number] UA Leuk Est Small Abnormal Negative [facility] ([place]) Comment on above: Performed By: #### H CTRP, HGBRP, GLURP, CLRP, NARP, BGRP, KRP, CARP #### [place] [id number] UA Nitrite Negative Normal Negative [facility] ([place]) Comment on above: Performed By: #### H CTRP, HGBRP, GLURP, CLRP, NARP, BGRP, KRP, CARP #### [place] [address] UA pH 5.5 Normal 5.0 - 8.0 [facility] ([place]) Comment on above: Performed By: #### H CTRP, HGBRP, GLURP, CLRP, NARP, BGRP, KRP, CARP #### [address] [address] UA Protein Negative Normal Negative [facility] ([place]) Comment on above: Performed By: #### H CTRP, HGBRP, GLURP, CLRP, NARP, BGRP, KRP, CARP #### [address] [address] UA Spec Grav 1.010 Normal 1.006-1.029 [facility] ([place]) Comment on above: Performed By: #### H CTRP, HGBRP, GLURP, CLRP, NARP, BGRP, KRP, CARP #### [place] [address] UA Specimen Type Clean Catch Normal [facility] ([place]) Comment on above: Performed By: #### H CTRP, HGBRP, GLURP, CLRP, NARP, BGRP, KRP, CARP #### [address] [address] UA Urobilinogen 0.2 E.U./dL Normal 0.2-1.0 [facility] ([place]) Comment on above: Performed By: #### H CTRP, HGBRP, GLURP, CLRP, NARP, BGRP, KRP, CARP #### [place] [address] Urobilinogen (U) [Mass/Vol] Negative Normal Neg-Trace [facility] ([place]) Comment on above: Performed By: #### H CTRP, HGBRP, GLURP, CLRP, NARP, BGRP, KRP, CARP #### [address] [address] UAMICon 10-31-2021 UA RBC Negative Normal 0-2 [facility] ([place]) Comment on above: Performed By: #### H CTRP, HGBRP, GLURP, CLRP, NARP, BGRP, KRP, CARP #### [address] [address] UA Squam Epithelial Negative Normal 0-20 [facility] ([place]) Comment on above: Performed By: #### H CTRP, HGBRP, GLURP, CLRP, NARP, BGRP, KRP, CARP #### [address] [address] UA WBC Rare Normal 0-5 [facility] ([place]) Comment on above: Performed By: #### H CTRP, HGBRP, GLURP, CLRP, NARP, BGRP, KRP, CARP #### [address] [address] .Auto Diffon 10-11-2021 Basophil, Absolute 0.1 10 3/mcL Normal 0.0-0.3 [facility] ([place]) Comment on above: Performed By: #### H CTRP, HGBRP, GLURP, CLRP, NARP, BGRP, KRP, CARP #### [address] [address] Basophils/100 WBC (Bld) 0.4 % Normal 0.0-2.5 A [facility] ([place]) Comment on above: Performed By: #### H CTRP, HGBRP, GLURP, CLRP, NARP, BGRP, KRP, CARP #### [address] [address] Eosinophil, Absolute 0.3 10 3/mcL Normal 0.0-0.7 Pending sale to [facility] ([place]) Comment on above: Performed By: #### H CTRP, HGBRP, GLURP, CLRP, NARP, BGRP, KRP, CARP #### [address] [address] Eosinophils/100 WBC (Bld) 2.2 % Normal 0.0-6.0 [facility] ([place]) Comment on above: Performed By: #### H CTRP, HGBRP, GLURP, CLRP, NARP, BGRP, KRP, CARP #### [address] [address] Lymphocyte, Absolute 2.8 10 3/mcL Normal 0.9-4.3 Pending sale to [facility] ([place]) Comment on above: Performed By: #### H CTRP, HGBRP, GLURP, CLRP, NARP, BGRP, KRP, CARP #### [address] [address] Lymphocytes/100 WBC (Bld) 22.2 % Normal 20.0-40.0 [facility] ([place]) Comment on above: Performed By: #### H CTRP, HGBRP, GLURP, CLRP, NARP, BGRP, KRP, CARP #### [address] [address] Monocyte, Absolute 1.0 10 3/mcL Normal 0.1-1.4 [facility] ([place]) Comment on above: Performed By: #### H CTRP, HGBRP, GLURP, CLRP, NARP, BGRP, KRP, CARP #### [address] [address] Monocytes/100 WBC (Bld) 7.7 % Normal 2.0-13.0 A [facility] ([place]) Comment on above: Performed By: #### H CTRP, HGBRP, GLURP, CLRP, NARP, BGRP, KRP, CARP #### [address] [address] Neutrophils/100 WBC (Bld) 67.5 % Normal 50.0-75.0 [facility] ([place]) Comment on above: Performed By: #### H CTRP, HGBRP, GLURP, CLRP, NARP, BGRP, KRP, CARP #### [address] [address] .GFRon 10-11-2021 GFR Non- >60 Normal [facility] ([place]) Comment on above: Result Comment: GFR Population [...] GLURP, CLRP, NARP, BGRP, KRP, CARP #### [address] [address] GFR >60 Normal [facility] ([place]) Comment on above: Result Comment: GFR Population [...] GLURP, CLRP, NARP, BGRP, KRP, CARP #### [address] [address] .MDWon 10-11-2021 Monocyte Distribution Width 19.02 Normal 0.00-20.00 [facility] ([place]) Comment on above: Result Comment: For ED adult patients suspected of sepsis, MDW<=20.0 does not rule out sepsis or risk of sepsis Performed By: #### H CTRP, HGBRP, GLURP, CLRP, NARP, BGRP, KRP, CARP #### [address] [address] .NEUABSon 10-11-2021 Neutrophil, Absolute 8.4 10 3/mcL High 2.3-8.1 Pending sale to [facility] ([place]) Comment on above: Performed By: #### H CTRP, HGBRP, GLURP, CLRP, NARP, BGRP, KRP, CARP #### [address] [address] CBCon 10-11-2021 Erythrocyte distribution width (RBC) [Ratio] 13.6 % Normal 11.5-15.5 [facility] ([place]) Comment on above: Performed By: #### H CTRP, HGBRP, GLURP, CLRP, NARP, BGRP, KRP, CARP #### [place] [address] Hematocrit (Bld) [Volume fraction] 41.1 % Normal 34.0-46.0 [facility] ([place]) Comment on above: Performed By: #### H CTRP, HGBRP, GLURP, CLRP, NARP, BGRP, KRP, CARP #### [place] [address] Hgb 13.4 G/dL Normal 12.0-16.0 [facility] ([place]) Comment on above: Performed By: #### H CTRP, HGBRP, GLURP, CLRP, NARP, BGRP, KRP, CARP #### [place] [address] MCH (RBC) [Entitic mass] 29.5 pg Normal 27.0-33.0 [facility] ([place]) Comment on above: Performed By: #### H CTRP, HGBRP, GLURP, CLRP, NARP, BGRP, KRP, CARP #### [place] [id number] MCHC 32.7 G/dL Normal 32.0-36.0 [facility] ([place]) Comment on above: Performed By: #### H CTRP, HGBRP, GLURP, CLRP, NARP, BGRP, KRP, CARP #### [place] [id number] MCV (RBC) [Entitic vol] 90.1 fL Normal 80.0-99.0 A [facility] ([place]) Comment on above: Performed By: #### H CTRP, HGBRP, GLURP, CLRP, NARP, BGRP, KRP, CARP #### [address] [address] Platelet 291 10 3/mcL Normal 150-450 [facility] ([place]) Comment on above: Performed By: #### H CTRP, HGBRP, GLURP, CLRP, NARP, BGRP, KRP, CARP #### [address] [address] Platelet mean volume (Bld) [Entitic vol] 8.4 fL Normal 6.6-10.5 [facility] ([place]) Comment on above: Performed By: #### H CTRP, HGBRP, GLURP, CLRP, NARP, BGRP, KRP, CARP #### [address] [address] RBC 4.56 10 6/mcL Normal 4.10-5.30 [facility] ([place]) Comment on above: Performed By: #### H CTRP, HGBRP, GLURP, CLRP, NARP, BGRP, KRP, CARP #### [address] [address] WBC 12.5 10 3/mcL High 4.5-10.8 [facility] ([place]) Comment on above: Performed By: #### H CTRP, HGBRP, GLURP, CLRP, NARP, BGRP, KRP, CARP #### [address] [address] CMPon 10-11-2021 Albumin Level 3.6 G/dL Normal 3.2-4.8 [facility] ([place]) Comment on above: Performed By: #### H CTRP, HGBRP, GLURP, CLRP, NARP, BGRP, KRP, CARP #### [address] [address] Albumin/Globulin [Mass ratio] 1.0 {ratio} Normal 0.9-1.6 [facility] ([place]) Comment on above: Performed By: #### H CTRP, HGBRP, GLURP, CLRP, NARP, BGRP, KRP, CARP #### [address] [address] ALP [Catalytic activity/Vol] 111 U/L Normal 38-126 [facility] ([place]) Comment on above: Performed By: #### H CTRP, HGBRP, GLURP, CLRP, NARP, BGRP, KRP, CARP #### [address] [address] ALT [Catalytic activity/Vol] 22 U/L Normal 10-49 [facility] ([place]) Comment on above: Performed By: #### H CTRP, HGBRP, GLURP, CLRP, NARP, BGRP, KRP, CARP #### [address] [address] AST [Catalytic activity/Vol] 28 U/L Normal 8-34 [facility] ([place]) Comment on above: Performed By: #### H CTRP, HGBRP, GLURP, CLRP, NARP, BGRP, KRP, CARP #### [address] [address] Bili Total 0.40 mg/dL Normal 0.20-1.20 [facility] ([place]) Comment on above: Result Comment: Use of this assay is not recommended for patients undergoing treatment with eltrombopag due to the potential for falsely elevated results. Performed By: #### H CTRP, HGBRP, GLURP, CLRP, NARP, BGRP, KRP, CARP #### [place] [id number] BUN/Creatinine Ratio 22.1 ratio High 10.0-22.0 [facility] ([place]) Comment on above: Performed By: #### H CTRP, HGBRP, GLURP, CLRP, NARP, BGRP, KRP, CARP #### [place] [id number] Calcium [Mass/Vol] 9.5 mg/dL Normal 8.7-10.4 [facility] ([place]) Comment on above: Performed By: #### H CTRP, HGBRP, GLURP, CLRP, NARP, BGRP, KRP, CARP #### [address] [address] Chloride [Moles/Vol] 104 mmol/L Normal 98-110 [facility] ([place]) Comment on above: Performed By: #### H CTRP, HGBRP, GLURP, CLRP, NARP, BGRP, KRP, CARP #### [address] [address] CO2 [Moles/Vol] 28 mmol/L Normal 22-32 [facility] ([place]) Comment on above: Performed By: #### H CTRP, HGBRP, GLURP, CLRP, NARP, BGRP, KRP, CARP #### [place] [address] Creatinine [Mass/Vol] 0.68 mg/dL Normal 0.50-1.20 [facility] ([place]) Comment on above: Performed By: #### H CTRP, HGBRP, GLURP, CLRP, NARP, BGRP, KRP, CARP #### [address] [address] Electrolyte Balance 4.0 mEq/L Normal 4.0-15.0 [facility] ([place]) Comment on above: Performed By: #### H CTRP, HGBRP, GLURP, CLRP, NARP, BGRP, KRP, CARP #### [place] [id number] Globulin 3.6 G/dL Normal 1.5-3.8 [facility] ([place]) Comment on above: Performed By: #### H CTRP, HGBRP, GLURP, CLRP, NARP, BGRP, KRP, CARP #### [place] [id number] Glucose [Mass/Vol] 178 mg/dL High 82-115 [facility] ([place]) Comment on above: Performed By: #### H CTRP, HGBRP, GLURP, CLRP, NARP, BGRP, KRP, CARP #### [place] [address] [address] Potassium [Moles/Vol] 4.0 mmol/L Normal 3.5-5.0 [facility] ([place]) Comment on above: Performed By: #### H CTRP, HGBRP, GLURP, CLRP, NARP, BGRP, KRP, CARP #### [address] [address] Sodium [Moles/Vol] 136 mmol/L Normal 136-145 [facility] ([place]) Comment on above: Performed By: #### H CTRP, HGBRP, GLURP, CLRP, NARP, BGRP, KRP, CARP #### [address] [address] Total Protein 7.2 G/dL Normal 5.7-8.2 [facility] ([place]) Comment on above: Result Comment: No te - New Reference Range in effect 19 Performed By: #### H CTRP, HGBRP, GLURP, CLRP, NARP, BGRP, KRP, CARP #### [address] [address] Urea nitrogen [Mass/Vol] 15.0 mg/dL Normal 8.0-22.0 [facility] ([place]) Comment on above: Performed By: #### H CTRP, HGBRP, GLURP, CLRP, NARP, BGRP, KRP, CARP #### [address] [address] PBNPon 10-11-2021 Natriuretic peptide B (Bld) [Mass/Vol] 123 pg/mL Normal 0-900 [facility] ([place]) Comment on above: Result Comment: NT-p roBNP results of less than 300 pg/mL effectively rules out acute congestive heart failure with 99% negative predictive value. Performed By: #### H CTRP, HGBRP, GLURP, CLRP, NARP, BGRP, KRP, CARP #### [address] [address] TROPHSon 10-11-2021 Troponin I High Sensitivity 7.31 ng/L Normal 0.00-34.00 [facility] ([place]) Comment on above: Result Comment: If t he High Sensitive Troponin result is below the 99th percentile value (<45 ng/L) at the first blood draw, at least two additional blood samples should be drawn before results are interpreted as negative for AMI. Performed By: #### H CTRP, HGBRP, GLURP, CLRP, NARP, BGRP, KRP, CARP #### [place] [address] XR CHEST 1 VIEWon 10-11-2021 XR CHEST [...] AM Ordering Provider: ANTWAN Mercado [facility] ([place]) Absolute lymphocyte counton 09-08-2021 Lymphocytes Auto (Unsp spec) [#/Vol] 2.25 10*3/uL 0.83-4.[address] [facility] Work Phone: Basophil percentageon 2021 Basophils/100 WBC (Bld) 0.6 % 0-[address] [facility] Work Phone: Bilirubin [Mass/Vol] 0.50 mg/dL 0.20-1.00 [facility] Work Phone: Comment on above: For patients on eltr ombopag therapy, use of Dimension [place] TBIL is not recommended. Chloride [Moles/Vol] 102 mmol/L 98-107 [facility] Work Phone: Eosinophils/100 WBC (Bld) 2.6 % 0-[address] [facility] Work Phone: Glucose [Mass/Vol] 287 mg/dL 74-106 [facility] Work Phone: Comment on above: Glucose result great er than or equal to 200 mg/dLsuggests DIABETES MELLITUS per A.D.A. criteria. Neutrophils (Bld) [#/Vol] 10.8 10*3/uL 2.0-7.[address] [facility] Work Phone: Neutrophils/100 WBC (Bld) 74.7 % 47-[address] [facility] Work Phone: Potassium [Moles/Vol] 4.2 mmol/L 3.5-5.1 [facility] Work Phone: Protein [Mass/Vol] 7.2 g/dL 6.4-8.2 [facility] Work Phone: Sodium [Moles/Vol] 137 mmol/L 136-145 [facility] Work Phone: WBC (Bld) [#/Vol] 14.4 10*3/uL 4.4-11.0 [facility] Work Phone: Blood erythrocytes count (nu mber/volume)on 09-08-2021 RBC (Bld) [#/Vol] 4.53 10*6/uL 4.2-5.4 [facility] Work Phone: Blood hemoglobin measurement (mass/volume)on 09-08-2021 Hemoglobin (Bld) [Mass/Vol] 13.5 g/dL 12.0-15.[address] [facility] Work Phone: Blood lymphocytes/100 leukoc yteson 09-08-2021 Lymphocytes/100 WBC (Bld) 15.6 % 19-[address] [facility] Work Phone: Blood monocytes/100 leukocyt eson 09-08-2021 Monocytes/100 WBC (Bld) 5.8 % 0-[address] [facility] Work Phone: [phone] Blood platelet mean volumeon 09-08-2021 Platelet mean volume (Bld) [Entitic vol] 10.7 fL 6.2-12.[address] [facility] Work Phone: [phone] Determination of erythrocyte mean corpuscular volume (MCV)on 09-08-2021 MCV (RBC) [Entitic vol] 92.5 fL 81-[address] [facility] Work Phone: [phone] Hematocrit Auto (Bld) [Volum e fraction]on 09-08-2021 Hematocrit (Bld) [Volume fraction] 41.9 % 37-[address] [facility] Work Phone: [phone] Laboratory - Chemistry and C hemistry - challengeon 09-08-2021 ALP [Catalytic activity/Vol] 96 U/L 45-[address] [facility] Work Phone: [phone] ALT [Catalytic activity/Vol] 28 U/L 13-[address] [facility] Work Phone: [phone] CO2 [Moles/Vol] 28.0 mmol/L 21.0-32.[address] [facility] Work Phone: [phone] Globulin (S) [Mass/Vol] 3.9 g/dL 2.2-4.[address] [facility] Work Phone: [phone] Urea nitrogen/Creatinine [Mass ratio] 18.7 mg/mg 10-[address] [facility] Work Phone: [phone] Laboratory - Hematology and Cell countson 09-08-2021 Erythrocyte distribution width (RBC) [Entitic vol] 43.7 fL 35.1-43.[address] [facility] Work Phone: [phone] Erythrocyte distribution width (RBC) [Ratio] 12.9 % 11.6-14.[address] [facility] Work Phone: [phone] Immature granulocytes/100 WBC (Bld) 0.700 % 0.0-0.[address] [facility] Work Phone: [phone] Comment on above: IG% - Immature Granu locytes (promyelocytes, myelocytes and metamyelocytes) > 1% indicates that a LEFT SHIFT is Present. MCH (RBC) [Entitic mass] 29.8 pg 27.0-32.[address] [facility] Work Phone: [phone] Nucleated RBC/100 WBC (Bld) [Ratio] 0 % 0-[address] [facility] Work Phone: [phone] MCHC Auto (RBC) [Mass/Vol]on 09-08-2021 MCHC (RBC) [Mass/Vol] 32.2 g/dL 32-36 [facility] Work Phone: [phone] Panel Informationon 09-08 Estimated Creatinine Clearance Calc 43.74 ml/min [facility] Work Phone: [phone] Estimated GFR (MDRD) Amer 74 mL/min >[address] [facility] Work Phone: [phone] Comment on above: GFR Calc Estimated GFR (MDRD) Non-Af Amer 61 mL/min >[address] [facility] Work Phone: [phone] Comment on above: Non- GFR Calc Platelets bldon 09-08-2021 Platelets (Bld) [#/Vol] 267 10*3/uL 150-[address] [facility] Work Phone: [phone] Serum or plasma albumin betsy urement (mass/volume)on 09-08-2021 Albumin [Mass/Vol] 3.3 g/dL 3.2-5.0 [facility] Work Phone: [phone] Serum or plasma albumin/glob ulin mass ratioon 09-08-2021 Albumin/Globulin [Mass ratio] 0.8 {ratio} 0.9-2.[address] [facility] Work Phone: [phone] Serum or plasma calcium betsy urement (mass/volume)on 09-08-2021 Calcium [Mass/Vol] 9.1 mg/dL 8.5-10.1 [facility] Work Phone: [phone] Serum or plasma creatinine m easurement (mass/volume)on 09-08-2021 Creatinine [Mass/Vol] 0.96 mg/dL 0.55-1.02 [facility] Work Phone: Comment on above: The validity of the calculated GFR & GFRAA in patients over 70 years has not been determined. Clinical correlation is essential. Serum or plasma urea nitroge n measurement (mass/volume)on 09-08-2021 Urea nitrogen [Mass/Vol] 18 mg/dL 7-[address] [facility] Work Phone: Thin prep Papanicolaou smear with manual screeningon 09-08-2021 Thin prep Papanicolaou smear with manual screening 20 U/L 15-[address] [facility] Work Phone: [phone] Thin prep Papanicolaou smear with manual screening 7 5-[address] [facility] Work Phone: [phone] Glucose Glucometer (BldC) [M ass/Vol]on 09-05-2021 Glucose [Mass/Vol] 201 mg/dL 74-106 [facility] Work Phone: Comment on above: MANAGEMENT OF PATIEN T CARE PER NURSING PROTOCOL Basophil percentageon 2021 Chloride [Moles/Vol] 103 mmol/L 98-107 [facility] Work Phone: [phone] Glucose [Mass/Vol] 160 mg/dL 74-106 [facility] Work Phone: Comment on above: Fasting Glucose resu lt greater than or equal to 126 mg/dL suggests DIABETES MELLITUS per A.D.A. criteria. Potassium [Moles/Vol] 4.0 mmol/L 3.5-5.1 [facility] Work Phone: [phone] Sodium [Moles/Vol] 136 mmol/L 136-145 [facility] Work Phone: [phone] WBC (Bld) [#/Vol] 12.7 10*3/uL 4.4-11.0 [facility] Work Phone: [phone] Blood erythrocytes count (nu mber/volume)on 08-28-2021 RBC (Bld) [#/Vol] 4.62 10*6/uL 4.2-5.4 [facility] Work Phone: [phone] Blood hemoglobin measurement (mass/volume)on 08-28-2021 Hemoglobin (Bld) [Mass/Vol] 13.7 g/dL 12.0-15.[address] [facility] Work Phone: Blood platelet mean volumeon 08-28-2021 Platelet mean volume (Bld) [Entitic vol] 10.9 fL 6.2-12.[address] [facility] Work Phone: Determination of erythrocyte mean corpuscular volume (MCV)on 08-28-2021 MCV (RBC) [Entitic vol] 92.0 fL 81-[address] [facility] Work Phone: Hematocrit Auto (Bld) [Volum e fraction]on 08-28-2021 Hematocrit (Bld) [Volume fraction] 42.5 % 37-[address] [facility] Work Phone: INR in Blood by Coagulation assayon 08-28-2021 INR Coag (Bld) [Relative time] 1.0 {INR} [facility] Work Phone: Laboratory - Chemistry and C hemistry - challengeon 08-28-2021 CO2 [Moles/Vol] 28.0 mmol/L 21.0-32.[address] [facility] Work Phone: Urea nitrogen/Creatinine [Mass ratio] 23.6 mg/mg 10-[address] [facility] Work Phone: Laboratory - Coagulationon 0 08-28-2021 aPTT Coag (Bld) [Time] 25.4 s 24.1-36.2 [facility] Work Phone: PT Coag (PPP) [Time] 13.0 s 11.7-14.9 [facility] Work Phone: Laboratory - Hematology and Cell countson 08-28-2021 Erythrocyte distribution width (RBC) [Entitic vol] 43.4 fL 35.1-43.[address] [facility] Work Phone: Erythrocyte distribution width (RBC) [Ratio] 12.9 % 11.6-14.[address] [facility] Work Phone: MCH (RBC) [Entitic mass] 29.7 pg 27.0-32.[address] [facility] Work Phone: MCHC Auto (RBC) [Mass/Vol]on 08-28-2021 MCHC (RBC) [Mass/Vol] 32.2 g/dL 32-36 [facility] Work Phone: No Panel Informationon 08-28 Estimated GFR (MDRD) Amer 91 mL/min >[address] [facility] Work Phone: Comment on above: GFR Calc Estimated GFR (MDRD) Non-Af Amer 75 mL/min >[address] [facility] Work Phone: Comment on above: Non- GFR Calc Platelets bldon 08-28-2021 Platelets (Bld) [#/Vol] 299 10*3/uL 150-[address] [facility] Work Phone: Serum or plasma calcium betsy urement (mass/volume)on 08-28-2021 Calcium [Mass/Vol] 9.1 mg/dL 8.5-10.1 [facility] Work Phone: Serum or plasma creatinine m easurement (mass/volume)on 08-28-2021 Creatinine [Mass/Vol] 0.80 mg/dL 0.55-1.02 [facility] Work Phone: Comment on above: The validity of the calculated GFR & GFRAA in patients over 70 years has not been determined. Clinical correlation is essential. Serum or plasma urea nitroge n measurement (mass/volume)on 08-28-2021 Urea nitrogen [Mass/Vol] 19 mg/dL 7-[address] [facility] Work Phone: Thin prep Papanicolaou smear with manual screeningon 08-28-2021 Thin prep Papanicolaou smear with manual screening 5 5-[address] [facility] Work Phone: Absolute lymphocyte counton 06-07-2021 Lymphocytes Auto (Unsp spec) [#/Vol] 2.40 10*3/uL 0.83-4.[address] [facility] Work Phone: Basophil percentageon 03-23- 2022 Basophil percentage 0 SEEN /hpf 0-5 [facility] Work Phone: Basophils/100 WBC (Bld) 0.8 % 0-[address] [facility] Work Phone: Bilirubin [Mass/Vol] 0.40 mg/dL 0.20-1.00 [facility] Work Phone: Comment on above: For patients on eltr ombopag therapy, use of Dimension [place] TBIL is not recommended. Chloride [Moles/Vol] 101 mmol/L 98-107 [facility] Work Phone: Cholesterol [Mass/Vol] 160 mg/dL <200 [facility] Work Phone: Comment on above: <200 mg/dL Desirable 200-240 mg/dL Borderline >240 mg/dL High Risk Eosinophils/100 WBC (Bld) 2.4 % 0-[address] [facility] Work Phone: Glucose [Mass/Vol] 232 mg/dL 74-106 [facility] Work Phone: Comment on above: Glucose result great er than or equal to 200 mg/dLsuggests DIABETES MELLITUS per A.D.A. criteria. Neutrophils (Bld) [#/Vol] 8.1 10*3/uL 2.0-7.[address] [facility] Work Phone: Neutrophils/100 WBC (Bld) 68.3 % 47-[address] [facility] Work Phone: Potassium [Moles/Vol] 4.3 mmol/L 3.5-5.1 [facility] Work Phone: Protein [Mass/Vol] 7.8 g/dL 6.4-8.2 [facility] Work Phone: Sodium [Moles/Vol] 134 mmol/L 136-145 [facility] Work Phone: Triglyceride [Mass/Vol] 186 mg/dL <[address] [facility] Work Phone: [phone] Comment on above: The drugs N-Acetylcy steine and Metamizole may falsely depress this assay.Serum Triglycerides Reference Interval Normal <150 mg/dL Borderline high 150 - 199 mg/dL High 200 - 499 mg/dL Very High > or = 500 mg/dL WBC (Bld) [#/Vol] 11.9 10*3/uL 4.4-11.0 [facility] Work Phone: Bilirubin Test strip Ql (U)o n 06-07-2021 Bilirubin Ql (U) Negative Negative [facility] Work Phone: Blood erythrocytes count (nu mber/volume)on 06-07-2021 RBC (Bld) [#/Vol] 4.69 10*6/uL 4.2-5.4 [facility] Work Phone: [phone] Blood hemoglobin measurement (mass/volume)on 06-07-2021 Hemoglobin (Bld) [Mass/Vol] 13.9 g/dL 12.0-15.[address] [facility] Work Phone: [phone] Blood lymphocytes/100 leukoc yteson 06-07-2021 Lymphocytes/100 WBC (Bld) 20.2 % 19-[address] [facility] Work Phone: [phone] Blood monocytes/100 leukocyt eson 06-07-2021 Monocytes/100 WBC (Bld) 7.0 % 0-[address] [facility] Work Phone: [phone] Blood platelet mean volumeon 06-07-2021 Platelet mean volume (Bld) [Entitic vol] 11.0 fL 6.2-12.[address] [facility] Work Phone: [phone] Determination of erythrocyte mean corpuscular volume (MCV)on 06-07-2021 MCV (RBC) [Entitic vol] 93.4 fL 81-[address] [facility] Work Phone: [phone] Hematocrit Auto (Bld) [Volum e fraction]on 06-07-2021 Hematocrit (Bld) [Volume fraction] 43.8 % 37-[address] [facility] Work Phone: [phone] Ketones Test strip Ql (U)on 06-07-2021 Ketones Ql (U) Negative Negative [facility] Work Phone: Laboratory - Chemistry and C hemistry - challengeon 06-07-2021 ALP [Catalytic activity/Vol] 122 U/L 45-[address] [facility] Work Phone: [phone] [Catalytic activity/Vol] 33 U/L 13-[address] [facility] Work Phone: [phone] CO2 [Moles/Vol] 27.0 mmol/L 21.0-32.[address] [facility] Work Phone: [phone] Free T4 [Mass/Vol] 0.79 ng/dL 0.76-1.46 [facility] Work Phone: [phone] Globulin (S) [Mass/Vol] 4.2 g/dL 2.2-4.[address] [facility] Work Phone: [phone] Magnesium [Mass/Vol] 2.1 mg/dL 1.6-2.6 [facility] Work Phone: [phone] Urea nitrogen/Creatinine [Mass ratio] 21.3 mg/mg 10-[address] [facility] Work Phone: [phone] Laboratory - Hematology and Cell countson 06-07-2021 Erythrocyte distribution width (RBC) [Entitic vol] 45.1 fL 35.1-43.[address] [facility] Work Phone: [phone] Erythrocyte distribution width (RBC) [Ratio] 13.2 % 11.6-14.[address] [facility] Work Phone: [phone] Immature granulocytes/100 WBC (Bld) 1.300 % 0.0-0.[address] [facility] Work Phone: [phone] Comment on above: IG% - Immature Granu locytes (promyelocytes, myelocytes and metamyelocytes) > 1% indicates that a LEFT SHIFT is Present. MCH (RBC) [Entitic mass] 29.6 pg 27.0-32.[address] [facility] Work Phone: [phone] Nucleated RBC/100 WBC (Bld) [Ratio] 0 % 0-[address] [facility] Work Phone: [phone] HbA1c (Bld) [Mass fraction] 8.4 % 4.2-6.[address] [facility] Work Phone: MCHC Auto (RBC) [Mass/Vol]on 06-07-2021 MCHC (RBC) [Mass/Vol] 31.7 g/dL 32-36 [facility] Work Phone: Mucus LM Ql (Urine sed)on Mucus Ql (Urine sed) 0 SEEN /hpf [facility] Work Phone: Nitrite Test strip Ql (U)on 06-07-2021 Nitrite Ql (U) Negative Negative [facility] Work Phone: No Panel Informationon 06-07 Estimated GFR (MDRD) Amer 76 mL/min >[address] [facility] Work Phone: Comment on above: GFR Calc Estimated GFR (MDRD) Non-Af Amer 63 mL/min >[address] [facility] Work Phone: Comment on above: Non- GFR Calc Free Triiodothyronine (T3) pg/dL 2.8 pg/mL 2.18-3.[address] [facility] Work Phone: Thyroid Stimulating Hormone (TSH) 10.30 uIU/mL 0.358-3.[address] [facility] Work Phone: Vitamin D 25-Hydroxy 18.1 ng/mL [facility] Work Phone: Comment on above: Vitamin D 25(OH) Sta tus Range Deficiency <20 ng/mL (50nmol/L) Insufficiency 20 - 30 ng/mL (50 - 75 nmol/L) Sufficiency 30 - 100 ng/mL (75 - 250 nmol/L) Toxicity >100 ng/mL (>250 nmol/L) Platelets bldon 06-07-2021 Platelets (Bld) [#/Vol] 332 10*3/uL 150-[address] [facility] Work Phone: Protein Test strip Ql (U)on 06-07-2021 Protein Ql (U) Negative Negative [facility] Work Phone: [phone] Serum or plasma albumin betsy urement (mass/volume)on 06-07-2021 Albumin [Mass/Vol] 3.6 g/dL 3.2-5.0 [facility] Work Phone: Serum or plasma albumin/glob ulin mass ratioon 06-07-2021 Albumin/Globulin [Mass ratio] 0.9 {ratio} 0.9-2.[address] [facility] Work Phone: Serum or plasma calcium betsy urement (mass/volume)on 06-07-2021 Calcium [Mass/Vol] 9.8 mg/dL 8.5-10.1 [facility] Work Phone: Serum or plasma cholesterol in HDL measurement (mass/volume)on 06-07-2021 Cholesterol in HDL [Mass/Vol] 51 mg/dL >[address] [facility] Work Phone: Comment on above: The drugs N-Acetylcy steine and Metamizole may falsely depress this assay. Reference Range HDL <40 mg/dL Low HDL Cholesterol HDL >or= 60 mg/dL High HDL Cholesterol Serum or plasma cholesterol in VLDL measurement (mass/volume)on 06-07-2021 Cholesterol in VLDL [Mass/Vol] 37 mg/dL 5-[address] [facility] Work Phone: [phone] Serum or plasma creatinine m easurement (mass/volume)on 06-07-2021 Creatinine [Mass/Vol] 0.94 mg/dL 0.55-1.02 [facility] Work Phone: Comment on above: The validity of the calculated GFR & GFRAA in patients over 70 years has not been determined. Clinical correlation is essential. Serum or plasma low density lipoprotein (LDL) cholesterol measurement (mass/volume)on 06-07-2021 Cholesterol in LDL [Mass/Vol] 72 mg/dL 0-[address] [facility] Work Phone: [phone] Serum or plasma urea nitroge n measurement (mass/volume)on 06-07-2021 Urea nitrogen [Mass/Vol] 20 mg/dL 7-[address] [facility] Work Phone: [phone] Squamous epithelial cells de tection in urine sediment by light microscopyon 06-07-2021 Epithelial cells.squamous LM Ql (Urine sed) 0 SEEN /hpf 5-[address] [facility] Work Phone: Thin prep Papanicolaou smear with manual screeningon 06-07-2021 Thin prep Papanicolaou smear with manual screening 23 U/L 15-[address] [facility] Work Phone: [phone] Thin prep Papanicolaou smear with manual screening 6 5-[address] [facility] Work Phone: Urine blood detectionon - RBC Ql (U) Negative Negative [facility] Work Phone: [phone] RBC Ql (U) 0 SEEN /hpf 0-[address] [facility] Work Phone: [phone] Urine clarityon 06-07-2021 Clarity (U) Sl. Cloudy Clear [facility] Work Phone: Urine color determinationon 06-07-2021 Color (U) Yellow Yellow [facility] Work Phone: Urine creatinine measurement (mass/volume)on 06-07-2021 Creatinine (U) [Mass/Vol] 23.70 mg/dL NO RANGE EST. [facility] Work Phone: Urine glucose detectionon Glucose Ql (U) 250 mg/dl Normal [facility] Work Phone: Urine leukocyte esterase det ection by dipstickon 06-07-2021 Leukocyte esterase Test strip Ql (U) Negative Negative [facility] Work Phone: Urine pHon 06-07-2021 pH (U) 6.5 [pH] 5.0 - 8.[address] [facility] Work Phone: Urine protein measurement (m ass/volume)on 06-07-2021 Protein (U) [Mass/Vol] 6.9 mg/dL 0.0-11.8 [facility] Work Phone: Urine protein/creatinine mas s ratioon 06-07-2021 Protein/Creatinine (U) [Mass ratio] 291 mg/g CRE 0-[address] [facility] Work Phone: Urine sediment bacteria coun t by microscopy (number/high power field)on 06-07-2021 Bacteria LM.HPF (Urine sed) [#/Area] 0 /[HPF] None Seen [facility] Work Phone: Urine specific gravity measu rementon 06-07-2021 Specific gravity (U) [Rel density] 1.010 1.002-1.[address] [facility] Work Phone: Urobilinogen Auto test strip Ql (U)on 06-07-2021 Urobilinogen Ql (U) Normal mg/dl Normal [facility] Work Phone: Absolute lymphocyte counton 04-25-2021 Lymphocytes Auto (Unsp spec) [#/Vol] 2.40 10*3/uL 0.83-4.[address] [facility] Work Phone: Basophil percentageon 2021 Basophils/100 WBC (Bld) 0.7 % 0-[address] [facility] Work Phone: Chloride [Moles/Vol] 101 mmol/L 98-107 [facility] Work Phone: Eosinophils/100 WBC (Bld) 1.8 % 0-[address] [facility] Work Phone: Glucose [Mass/Vol] 284 mg/dL 74-106 [facility] Work Phone: Comment on above: Glucose result great er than or equal to 200 mg/dLsuggests DIABETES MELLITUS per A.D.A. criteria. Neutrophils (Bld) [#/Vol] 9.9 10*3/uL 2.0-7.[address] [facility] Work Phone: Neutrophils/100 WBC (Bld) 72.3 % 47-[address] [facility] Work Phone: Potassium [Moles/Vol] 4.4 mmol/L 3.5-5.1 [facility] Work Phone: Sodium [Moles/Vol] 136 mmol/L 136-145 [facility] Work Phone: WBC (Bld) [#/Vol] 13.6 10*3/uL 4.4-11.0 [facility] Work Phone: Blood erythrocytes count (nu mber/volume)on 04-25-2021 RBC (Bld) [#/Vol] 4.88 10*6/uL 4.2-5.4 [facility] Work Phone: Blood hemoglobin measurement (mass/volume)on 04-25-2021 Hemoglobin (Bld) [Mass/Vol] 14.9 g/dL 12.0-15.[address] [facility] Work Phone: Blood lymphocytes/100 leukoc yteson 04-25-2021 Lymphocytes/100 WBC (Bld) 17.6 % 19-[address] [facility] Work Phone: Blood monocytes/100 leukocyt eson 04-25-2021 Monocytes/100 WBC (Bld) 6.2 % 0-[address] [facility] Work Phone: Blood platelet mean volumeon 04-25-2021 Platelet mean volume (Bld) [Entitic vol] 10.8 fL 6.2-12.[address] [facility] Work Phone: Determination of erythrocyte mean corpuscular volume (MCV)on 04-25-2021 MCV (RBC) [Entitic vol] 93.0 fL 81-[address] [facility] Work Phone: [phone] Hematocrit Auto (Bld) [Volum e fraction]on 04-25-2021 Hematocrit (Bld) [Volume fraction] 45.4 % 37-[address] [facility] Work Phone: Laboratory - Chemistry and C hemistry - challengeon 04-25-2021 CO2 [Moles/Vol] 29.0 mmol/L 21.0-32.[address] [facility] Work Phone: [phone] Natriuretic peptide B (Bld) [Mass/Vol] 53.5 pg/mL 0-[address] [facility] Work Phone: [phone] Urea nitrogen/Creatinine [Mass ratio] 18.0 mg/mg 10-[address] [facility] Work Phone: Laboratory - Hematology and Cell countson 04-25-2021 Erythrocyte distribution width (RBC) [Entitic vol] 44.8 fL 35.1-43.[address] [facility] Work Phone: [phone] Erythrocyte distribution width (RBC) [Ratio] 13.1 % 11.6-14.[address] [facility] Work Phone: [phone] Immature granulocytes/100 WBC (Bld) 1.400 % 0.0-0.[address] [facility] Work Phone: [phone] Comment on above: IG% - Immature Granu locytes (promyelocytes, myelocytes and metamyelocytes) > 1% indicates that a LEFT SHIFT is Present. MCH (RBC) [Entitic mass] 30.5 pg 27.0-32.[address] [facility] Work Phone: [phone] Nucleated RBC/100 WBC (Bld) [Ratio] 0 % 0-[address] [facility] Work Phone: [phone] MCHC Auto (RBC) [Mass/Vol]on 04-25-2021 MCHC (RBC) [Mass/Vol] 32.8 g/dL 32-36 [facility] Work Phone: [phone] Panel Informationon 04-25 Estimated Creatinine Clearance Calc 44.67 ml/min [facility] Work Phone: [phone] Estimated GFR (MDRD) Amer 76 mL/min >[address] [facility] Work Phone: [phone] Comment on above: GFR Calc Estimated GFR (MDRD) Non-Af Amer 63 mL/min >[address] [facility] Work Phone: [phone] Comment on above: Non- GFR Calc Troponin I High Sensitivity 12 pg/mL 3.0-54.[address] [facility] Work Phone: [phone] Comment on above: Please Note: New [place] t Units and Gender Specific Reference Ranges. For more information see Policy Stat Procedure [place] High Sensitivity Troponin (TNIH) and attachments. Platelets bldon 04-25-2021 Platelets (Bld) [#/Vol] 336 10*3/uL 150-[address] [facility] Work Phone: Serum or plasma calcium betsy urement (mass/volume)on 04-25-2021 Calcium [Mass/Vol] 9.0 mg/dL 8.5-10.1 [facility] Work Phone: Serum or plasma creatinine m easurement (mass/volume)on 04-25-2021 Creatinine [Mass/Vol] 0.94 mg/dL 0.55-1.02 [facility] Work Phone: Comment on above: The validity of the calculated GFR & GFRAA in patients over 70 years has not been determined. Clinical correlation is essential. Serum or plasma urea nitroge n measurement (mass/volume)on 04-25-2021 Urea nitrogen [Mass/Vol] 17 mg/dL 7-[address] [facility] Work Phone: Thin prep Papanicolaou smear with manual screeningon 04-25-2021 Thin prep Papanicolaou smear with manual screening 6 5-[address] [facility] Work Phone: [facility] Note on 09-15-2016 [facility] Note Normal [facility] Patient Summary Documentson 09-15-2016 Patient Summary Documents Normal [facility] Vital Signs Date Time Vital Sign Value Performing Clinician Facility 07-02-2024 13:00-0400 Body height 157.[address] Harish Noel MD Work Phone: [facility] 07-02-2024 13:00-0400 Body mass index (BMI) [Ratio] 41.7 kg/m2 Dr. Harish Noel MD Work Phone: [facility] 07-02-2024 13:00-0400 Body temperature 98.9 [degF] Dr. Harish Noel MD Work Phone: [facility] 07-02-2024 13:00-0400 Body weight 103.[address] Harish Noel MD Work Phone: [facility] 07-02-2024 13:00-0400 Diastolic blood pressure 70 mm[Hg] Dr. Harish Noel MD Work Phone: [facility] 07-02-2024 13:00-0400 Heart rate 66 /min Dr. Harish Noel MD Work Phone: [facility] 07-02-2024 13:00-0400 Respiratory rate 16 /min Dr. Harish Noel MD Work Phone: [facility] 07-02-2024 13:00-0400 SaO2% (BldA) [Mass fraction] 90 % Dr. Harish Noel MD Work Phone: [facility] 07-02-2024 13:00-0400 Systolic blood pressure 150 mm[Hg] Dr. Harish Noel MD Work Phone: [facility] 04-30-2024 14:50-0500 Body temperature 97.8 [degF] Dr. Harish Noel MD Work Phone: [facility] 04-30-2024 14:50-0500 Diastolic blood pressure 72 mm[Hg] Dr. Harish Noel MD Work Phone: [facility] 04-30-2024 14:50-0500 Heart rate 83 /min Dr. Harish Noel MD Work Phone: [facility] 04-30-2024 14:50-0500 Respiratory rate 16 /min Dr. Harish Noel MD Work Phone: [facility] 04-30-2024 14:50-0500 SaO2% (BldA) [Mass fraction] 96 % Dr. Harish Noel MD Work Phone: [facility] 04-30-2024 14:50-0500 Systolic blood pressure 138 mm[Hg] Dr. Harish Noel MD Work Phone: [facility] 04-30-2024 13:49-0500 Body weight 100.[address] Harish Noel MD Work Phone: [facility] 04-30-2024 01:16-0500 Body mass index (BMI) [Ratio] 40.6 kg/m2 Dr. Harish Noel MD Work Phone: [facility] 07-28-2022 12:49-0400 Body height 157.[address] Harish Noel Work Phone: [facility] 07-28-2022 12:49-0400 Body mass index (BMI) [Ratio] 40.6 kg/m2 Dr. Harish Noel Work Phone: [facility] 07-28-2022 12:49-0400 Body temperature 97.2 [degF] Dr. Harish Noel Work Phone: [facility] 07-28-2022 12:49-0400 Body weight 100.[address] Harish Noel Work Phone: [facility] 07-28-2022 12:49-0400 Diastolic blood pressure 69 mm[Hg] Dr. Harish Noel Work Phone: [facility] 07-28-2022 12:49-0400 Heart rate 78 /min Dr. Harish Noel Work Phone: [facility] 07-28-2022 12:49-0400 Respiratory rate 22 /min Dr. Harish Noel Work Phone: [facility] 07-28-2022 12:49-0400 SaO2% (BldA) [Mass fraction] 97 % Dr. Harish Noel Work Phone: [facility] 07-28-2022 12:49-0400 Systolic blood pressure 148 mm[Hg] Dr. Harish Noel Work Phone: [facility] 05-16-2022 13:10-0500 Body temperature 97.3 [degF] Dr. Harish Noel Work Phone: [facility] 05-16-2022 13:10-0500 Body weight 101.[address] Harish Noel Work Phone: [facility] 05-16-2022 13:10-0500 Diastolic blood pressure 72 mm[Hg] Dr. Harish Noel Work Phone: [facility] 05-16-2022 13:10-0500 Heart rate 88 /min Dr. Harish Noel Work Phone: [facility] 05-16-2022 13:10-0500 Respiratory rate 16 /min Dr. Harish Noel Work Phone: [facility] 05-16-2022 13:10-0500 SaO2% (BldA) [Mass fraction] 92 % Dr. Harish Noel Work Phone: [facility] 05-16-2022 13:10-0500 Systolic blood pressure 115 mm[Hg] Dr. Harish Noel Work Phone: [facility] 04-11-2022 14:31-0500 Body height 157.[address] Harish Noel Work Phone: [facility] 04-11-2022 14:31-0500 Body mass index (BMI) [Ratio] 40.6 kg/m2 Dr. Harish Noel Work Phone: [facility] 04-11-2022 14:31-0500 Body weight 100.[address] Harish Noel Work Phone: [facility] 04-11-2022 14:31-0500 Diastolic blood pressure 93 mm[Hg] Dr. Harish Noel Work Phone: [facility] 04-11-2022 14:31-0500 Heart rate 80 /min Dr. Harish Noel Work Phone: [facility] 04-11-2022 14:31-0500 Respiratory rate 18 /min Dr. Harish Noel Work Phone: [facility] 04-11-2022 14:31-0500 SaO2% (BldA) [Mass fraction] 93 % Dr. Harish Noel Work Phone: [facility] 04-11-2022 14:31-0500 Systolic blood pressure 151 mm[Hg] Dr. Harish Noel Work Phone: [facility] 01-21-2022 19:56-0500 Diastolic blood pressure 60 mm[Hg] Dr. Harish Noel Work Phone: [facility] Work Phone: 01-21-2022 19:56-0500 Heart rate 74 /min Dr. Harish Noel Work Phone: [facility] Work Phone: 01-21-2022 19:56-0500 Respiratory rate 17 /min Dr. Harish Noel Work Phone: [facility] Work Phone: 01-21-2022 19:56-0500 SaO2% (BldA) [Mass fraction] 97 % Dr. Harish Noel Work Phone: [facility] Work Phone: 01-21-2022 19:56-0500 Systolic blood pressure 162 mm[Hg] Dr. Harish Noel Work Phone: [facility] Work Phone: 01-21-2022 15:54-0500 Body height 157.[address] Harish Noel Work Phone: [facility] Work Phone: 01-21-2022 15:54-0500 Body mass index (BMI) [Ratio] 42.4 kg/m2 Dr. Harish Noel Work Phone: [facility] Work Phone: 01-21-2022 15:54-0500 Body temperature 97.4 [degF] Dr. Harish Noel Work Phone: [facility] Work Phone: 01-21-2022 15:54-0500 Body weight 105.[address] Harish Noel Work Phone: [facility] Work Phone: 01-11-2022 15:21-0400 Body height 157.[address] Harish Noel Work Phone: [facility] Work Phone: 01-11-2022 15:21-0400 Body mass index (BMI) [Ratio] 40.9 kg/m2 Dr. Harish Noel Work Phone: [facility] Work Phone: 01-11-2022 15:21-0400 Body weight 101.[address] Harish Noel Work Phone: [facility] Work Phone: 01-11-2022 15:21-0400 Diastolic blood pressure 68 mm[Hg] Dr. Harish Noel Work Phone: [facility] Work Phone: 01-11-2022 15:21-0400 Heart rate 71 /min Dr. Harish Noel Work Phone: [facility] Work Phone: 01-11-2022 15:21-0400 Respiratory rate 18 /min Dr. Harish Noel Work Phone: [facility] Work Phone: 01-11-2022 15:21-0400 Systolic blood pressure 134 mm[Hg] Dr. Harish Noel Work Phone: [facility] Work Phone: 01-08-2022 14:16-0400 Body temperature 98.1 [degF] Dr. Harish Noel Work Phone: [facility] Work Phone: 01-08-2022 14:16-0400 Body weight 100.[address] Harish Noel Work Phone: [facility] Work Phone: 01-08-2022 14:16-0400 Diastolic blood pressure 84 mm[Hg] Dr. Harish Noel Work Phone: [facility] Work Phone: 01-08-2022 14:16-0400 Heart rate 84 /min Dr. Harish Noel Work Phone: [facility] Work Phone: 01-08-2022 14:16-0400 Respiratory rate 18 /min Dr. Harish Noel Work Phone: [facility] Work Phone: 01-08-2022 14:16-0400 SaO2% (BldA) [Mass fraction] 92 % Dr. Harish Noel Work Phone: [facility] Work Phone: 01-08-2022 14:16-0400 Systolic blood pressure 136 mm[Hg] Dr. Harish Noel Work Phone: [facility] Work Phone: 11-29-2021 11:55-0400 Body temperature 98.24 [degF] POLLY PHILIPPE MD [facility] 11-29-2021 11:55-0400 Diastolic Blood Pressure NBP 62 1 POLLY PHILIPPE MD [facility] 11-29-2021 11:55-0400 Heart rate 93 /min POLLY PHILIPPE MD [facility] 11-29-2021 11:55-0400 Mean blood pressure 77 mm[Hg] POLLY PHILIPPE MD [facility] 11-29-2021 11:55-0400 Reason For Taking VItal Signs POLLY PHILIPPE MD [facility] 11-29-2021 11:55-0400 Systolic Blood Pressure NBP 112 1 POLLY PHILIPPE MD [facility] 11-29-2021 10:33-0400 Heart rate 89 /min POLLY PHILIPPE MD [facility] 11-29-2021 09:05-0400 Heart rate 101 /min POLLY PHILIPPE MD [facility] 11-29-2021 07:28-0400 Body temperature 98.6 [degF] POLLY PHILIPPE MD [facility] 11-29-2021 07:28-0400 Diastolic Blood Pressure NBP 63 1 POLLY PHILIPPE MD [address] [place] [address] 11-29-2021 07:28-0400 Mean blood pressure 78 mm[Hg] POLLY PHILIPPE MD [address] [place] [address] 11-29-2021 07:28-0400 Reason For Taking VItal Signs POLLY PHILIPPE MD [address] [place] [address] 11-29-2021 07:28-0400 Respiratory rate 18 /min POLLY PHILIPPE MD [address] 11-29-2021 07:28-0400 Systolic Blood Pressure NBP 114 1 POLLY PHILIPPE MD [address] [place] [address] 11-29-2021 04:28-0400 Body temperature 98.6 [degF] POLLY PHILIPPE MD [address] 11-29-2021 04:28-0400 Diastolic Blood Pressure NBP 52 1 POLLY PHILIPPE MD [address] [place] [address] 11-29-2021 04:28-0400 Mean blood pressure 64 mm[Hg] POLLY PHILIPPE MD [address] [place] [address] 11-29-2021 04:28-0400 Reason For Taking VItal Signs POLLY PHILIPPE MD [address] [place] [address] 11-29-2021 04:28-0400 Respiratory rate 18 /min POLLY PHILIPPE MD [address] [place] [address] 11-29-2021 04:28-0400 Systolic Blood Pressure NBP 109 1 POLLY PHILIPPE MD [address] [place] [address] 11-29-2021 00:35-0400 Respiratory rate 18 /min POLLY PHILIPPE MD [facility] 11-28-2021 03:43-0400 SaO2% (BldA) [Mass fraction] 94.9 % POLLY PHILIPPE MD [facility] 11-27-2021 23:49-0400 Heart rate 98 /min POLLY PHILIPPE MD [facility] 11-26-2021 23:14-0400 Heart rate 84 /min POLLY PHILIPPE MD [facility] 11-26-2021 22:40-0400 SaO2% (BldA) [Mass fraction] 94.8 % POLLY PHILIPPE MD [facility] 11-26-2021 21:11-0400 SaO2% (BldA) [Mass fraction] 93.8 % POLLY PHILIPPE MD [facility] 11-26-2021 13:18-0400 Diastolic blood pressure 55 mm[Hg] POLLY PHILIPPE MD [facility] 11-26-2021 13:18-0400 Mean blood pressure 73 mm[Hg] POLLY PHILIPPE MD [facility] 11-26-2021 13:18-0400 Systolic blood pressure 113 mm[Hg] POLLY PHILIPPE MD [facility] 11-26-2021 11:24-0400 Diastolic blood pressure 58 mm[Hg] POLLY PHILIPPE MD [facility] 11-26-2021 11:24-0400 Mean blood pressure 86 mm[Hg] POLLY PHILIPPE MD [facility] 11-26-2021 11:24-0400 Systolic blood pressure 127 mm[Hg] POLLY PHILIPPE MD [facility] 11-26-2021 10:06-0400 Diastolic blood pressure 55 mm[Hg] POLLY PHILIPPE MD [facility] 11-26-2021 10:06-0400 Mean blood pressure 82 mm[Hg] POLLY PHILIPPE MD [facility] 11-26-2021 10:06-0400 Systolic blood pressure 123 mm[Hg] POLLY PHILIPPE MD [facility] 11-26-2021 09:30-0400 Diastolic blood pressure 52 mm[Hg] POLLY PHILIPPE MD [facility] 11-26-2021 09:30-0400 Heart rate 77 /min POLLY PHILIPPE MD [address] [place] [address] 11-26-2021 09:30-0400 Mean blood pressure 73 mm[Hg] POLLY PHILIPPE MD [address] [place] [address] 11-26-2021 09:30-0400 Systolic blood pressure 116 mm[Hg] POLLY PHILIPPE MD [address] [place] [address] 11-26-2021 06:29-0400 Heart rate 88 /min POLLY PHILIPPE MD [facility] 11-25-2021 00:10-0400 Body temperature 98.42 [degF] POLLY PHILIPPE MD [address] [place] [address] 11-24-2021 20:09-0400 Body temperature 98.06 [degF] POLLY PHILIPPE MD [address] 11-24-2021 15:35-0400 Body temperature 98.42 [degF] POLLY PHILIPPE MD [facility] 11-23-2021 12:45-0400 Body temperature 98.44 [degF] POLLY PHILIPPE MD [facility] 11-23-2021 12:45-0400 Body temperature 97.88 [degF] POLLY PHILIPPE MD [facility] 11-23-2021 12:40-0400 Body temperature 98.55 [degF] POLLY PHILIPPE MD [address] [place] [address] 11-23-2021 12:40-0400 Body temperature 97.93 [degF] POLLY PHILIPPE MD [facility] 11-23-2021 12:35-0400 Body temperature 98.56 [degF] POLLY PHILIPPE MD [facility] 11-23-2021 12:35-0400 Body temperature 98.01 [degF] POLLY PHILIPPE MD [facility] 11-23-2021 12:11-0400 SaO2% (BldA) [Mass fraction] 97.8 % POLLY PHILIPPE MD [facility] 11-23-2021 11:29-0400 SaO2% (BldA) [Mass fraction] 99.2 % POLLY PHILIPPE MD [facility] 11-23-2021 11:00-0400 SaO2% (BldA) [Mass fraction] 99.0 % POLLY PHILIPPE MD [facility] 11-23-2021 06:01-0400 Heart rate 76 /min POLLY PHILIPPE MD [facility] 11-23-2021 05:54-0400 Body height 157.5 cm POLLY PHILIPPE MD [facility] 11-23-2021 05:54-0400 Body weight 102.3 kg POLLY PHILIPPE MD [facility] 11-23-2021 05:54-0400 Body weight 41.24 kg/m2 POLLY PHILIPPE MD [facility] 11-23-2021 05:54-0400 diastolic 105 mm[Hg] POLLY PHILIPPE MD [facility] 11-23-2021 05:54-0400 systolic 131 mm[Hg] POLLY PHILIPPE MD [facility] 11-05-2021 04:06-0400 Diastolic blood pressure 77 mm[Hg] Dr. Harish Noel Work Phone: [facility] Work Phone: 11-05-2021 04:06-0400 Heart rate 79 /min Dr. Harish Noel Work Phone: [facility] Work Phone: 11-05-2021 04:06-0400 Respiratory rate 20 /min Dr. Harish Noel Work Phone: [facility] Work Phone: 11-05-2021 04:06-0400 SaO2% (BldA) [Mass fraction] 95 % Dr. Harish Noel Work Phone: [facility] Work Phone: 11-05-2021 04:06-0400 Systolic blood pressure 159 mm[Hg] Dr. Harish Noel Work Phone: [facility] Work Phone: 11-05-2021 02:14-0400 Body height 157.[address] Harish Noel Work Phone: [facility] Work Phone: 11-05-2021 02:14-0400 Body mass index (BMI) [Ratio] 41.8 kg/m2 Dr. Harish Noel Work Phone: [facility] Work Phone: 11-05-2021 02:14-0400 Body temperature 98.1 [degF] Dr. Harish Noel Work Phone: [facility] Work Phone: 11-05-2021 02:14-0400 Body weight 103.[address] Harish Noel Work Phone: [facility] Work Phone: 09-08-2021 14:58-0400 Diastolic blood pressure 81 mm[Hg] Dr. Harish Noel Work Phone: [facility] Work Phone: 09-08-2021 14:58-0400 SaO2% (BldA) [Mass fraction] 94 % Dr. Harish Noel Work Phone: [facility] Work Phone: 09-08-2021 14:58-0400 Systolic blood pressure 157 mm[Hg] Dr. Harish Noel Work Phone: [facility] Work Phone: 09-08-2021 11:55-0400 Body height 157.[address] Harish Noel Work Phone: [facility] Work Phone: 09-08-2021 11:55-0400 Body mass index (BMI) [Ratio] 40.7 kg/m2 Dr. Harish Noel Work Phone: [facility] Work Phone: 09-08-2021 11:55-0400 Body temperature 97.1 [degF] Dr. Harish Noel Work Phone: [facility] Work Phone: 09-08-2021 11:55-0400 Body weight 101.[address] Harish Noel Work Phone: [facility] Work Phone: 09-08-2021 11:55-0400 Heart rate 101 /min Dr. Harish Noel Work Phone: [facility] Work Phone: 09-08-2021 11:55-0400 Respiratory rate 22 /min Dr. Harish Noel Work Phone: [facility] Work Phone: 09-05-2021 07:52-0400 Body height 157.[address] Harish Noel Work Phone: [facility] Work Phone: 09-05-2021 07:52-0400 Body weight 100.[address] Harish Noel Work Phone: [facility] Work Phone: 09-01-2021 12:02-0400 Body mass index (BMI) [Ratio] 40.6 kg/m2 Dr. Harish Noel Work Phone: [facility] Work Phone: 08-28-2021 09:45-0400 Body mass index (BMI) [Ratio] 40.6 kg/m2 Dr. Harish Noel Work Phone: [facility] Work Phone: 08-28-2021 09:45-0400 Body weight 100.[address] Harish Neol Work Phone: [facility] Work Phone: 08-28-2021 09:45-0400 Diastolic blood pressure 71 mm[Hg] Dr. Harish Noel Work Phone: [facility] Work Phone: 08-28-2021 09:45-0400 Heart rate 87 /min Dr. Harish Noel Work Phone: [facility] Work Phone: 08-28-2021 09:45-0400 Respiratory rate 18 /min Dr. Harish Noel Work Phone: [facility] Work Phone: 08-28-2021 09:45-0400 Systolic blood pressure 134 mm[Hg] Dr. Harish Noel Work Phone: [facility] Work Phone: 06-16-2021 15:17-0400 Body mass index (BMI) [Ratio] 41.1 kg/m2 Dr. Harish Noel Work Phone: [facility] Work Phone: 06-16-2021 15:17-0400 Body weight 102.[address] Harish Noel Work Phone: [facility] Work Phone: 06-16-2021 15:17-0400 Diastolic blood pressure 83 mm[Hg] Dr. Harish Noel Work Phone: [facility] Work Phone: 06-16-2021 15:17-0400 Heart rate 83 /min Dr. Harish Noel Work Phone: [facility] Work Phone: 06-16-2021 15:17-0400 Respiratory rate 18 /min Dr. Harish Noel Work Phone: [facility] Work Phone: 06-16-2021 15:17-0400 Systolic blood pressure 163 mm[Hg] Dr. Harish Noel Work Phone: [facility] Work Phone: 06-16-2021 15:17-0400 Body height 157.[address] Harish Noel Work Phone: [facility] Work Phone: 06-16-2021 15:17-0400 Body mass index (BMI) [Ratio] 41.1 kg/m2 Dr. Harish Noel Work Phone: [facility] Work Phone: 06-16-2021 15:17-0400 Body weight 102.[address] Harish Noel Work Phone: [facility] Work Phone: 06-16-2021 15:17-0400 Diastolic blood pressure 83 mm[Hg] Dr. Harish Noel Work Phone: [facility] Work Phone: 06-16-2021 15:17-0400 Heart rate 83 /min Dr. Harish Noel Work Phone: [facility] Work Phone: 06-16-2021 15:17-0400 Respiratory rate 18 /min Dr. Harihs Noel Work Phone: [facility] Work Phone: 06-16-2021 15:17-0400 Systolic blood pressure 163 mm[Hg] Dr. Harish Noel Work Phone: [facility] Work Phone: 06-07-2021 08:26-0400 Body temperature 96.4 [degF] Dr. Harish Noel Work Phone: [facility] Work Phone: 06-07-2021 08:26-0400 Body weight 104.[address] Harish Noel Work Phone: [facility] Work Phone: 06-07-2021 08:26-0400 Diastolic blood pressure 90 mm[Hg] Dr. Harish Noel Work Phone: [facility] Work Phone: 06-07-2021 08:26-0400 Heart rate 90 /min Dr. Harish Noel Work Phone: [facility] Work Phone: 06-07-2021 08:26-0400 Respiratory rate 16 /min Dr. Harish Noel Work Phone: [facility] Work Phone: 06-07-2021 08:26-0400 Systolic blood pressure 160 mm[Hg] Dr. Harish Noel Work Phone: [facility] Work Phone: 06-07-2021 08:26-0400 Body temperature 96.4 [degF] Dr. Harish Noel Work Phone: [facility] Work Phone: 06-07-2021 08:26-0400 Body weight 104.[address] Harish Noel Work Phone: [facility] Work Phone: 06-07-2021 08:26-0400 Diastolic blood pressure 90 mm[Hg] Dr. Harish Noel Work Phone: [facility] Work Phone: 06-07-2021 08:26-0400 Heart rate 90 /min Dr. Harish Noel Work Phone: [facility] Work Phone: 06-07-2021 08:26-0400 Respiratory rate 16 /min Dr. Harish Noel Work Phone: [facility] Work Phone: 06-07-2021 08:26-0400 Systolic blood pressure 160 mm[Hg] Dr. Harish Noel Work Phone: [facility] Work Phone: 04-25-2021 14:02-0500 Diastolic blood pressure 82 mm[Hg] Dr. Harish Noel Work Phone: [facility] Work Phone: 04-25-2021 14:02-0500 Heart rate 80 /min Dr. Harish Noel Work Phone: [facility] Work Phone: 04-25-2021 14:02-0500 Respiratory rate 13 /min Dr. Harish Noel Work Phone: [facility] Work Phone: 04-25-2021 14:02-0500 SaO2% (BldA) [Mass fraction] 98 % Dr. Harish Noel Work Phone: [facility] Work Phone: 04-25-2021 14:02-0500 Systolic blood pressure 156 mm[Hg] Dr. Harish Noel Work Phone: [facility] Work Phone: 04-25-2021 10:28-0500 Body mass index (BMI) [Ratio] 41.1 kg/m2 Dr. Harish Noel Work Phone: [facility] Work Phone: 04-25-2021 10:28-0500 Body temperature 96.1 [degF] Dr. Harish Noel Work Phone: [facility] Work Phone: 04-25-2021 10:28-0500 Body weight 102.[address] Harish Noel Work Phone: [facility] Work Phone: Encounters Encounter Date Encounter Type Care Provider Facility Start: 07-16-2024 End: 07-16-[address] Harish Noel MD Work Phone: [facility] Work Phone: Start: 07-16-2024 End: 07-16-[address] Harish Noel MD -Laboratory Work Phone: Start: 07-16-2024 End: 07-16-2024 ambulatory [facility] Facility:[facility] Start: 07-02-2024 End: 07-02-[address] Harish Noel MD -[facility] Work Phone: Start: 07-02-2024 End: 07-02-2024 ambulatory [facility] Facility:[facility] Start: 04-30-2024 Non-patient / Non-visit Dr. Nathan smith -[facility] Work Phone: Start: 04-30-2024 Non-patient / Non-visit Dr. Lianne Cruz MD -[facility] Start: 04-29-2024 End: 04-29-2024 ambulatory [facility] Facility:[facility] Start: 04-29-2024 End: 04-29-2024 Non-patient / Non-visit Dr. Delgado Cruz MD -[facility] Work Phone: Start: 04-29-2024 End: 04-30-2024 ambulatory [facility] Facility:[facility] Start: 04-29-2024 End: 04-30-2024 Evaluation and management of inpatient Dr. Nathan Torres DO -[facility] Work Phone: Start: 01-16-2024 End: 01-17-2024 ambulatory Harish Noel Facility:[facility] Start: 01-15-2024 End: 01-15-2024 Emergency department patient visit Harish Noel Facility:[facility] Start: 09-03-2023 End: 09-03-2023 Emergency department patient visit Harish Noel Facility:[facility] Start: 09-02-2023 End: 09-02-2023 Emergency department patient visit Harish Noel Facility:[facility] Start: 08-05-2023 End: 08-05-2023 ambulatory Harish Noel Facility:[facility] Start: 07-28-2022 End: 07-28-2022 Emergency department patient visit Dr. Harish Noel Work Phone: [facility]-Emergency Department Start: 06-11-2022 End: 06-11-[address] Harish Noel Work Phone: [facility] Work Phone: Start: 06-11-2022 End: 06-11-[address] Harish Noel Work Phone: [facility]-Laboratory Start: 05-16-2022 End: 05-16-[address] Harish Noel Work Phone: [facility] Start: 04-11-2022 End: 04-11-[address] Harish Noel Work Phone: [facility] Start: 01-21-2022 End: 01-21-2022 Emergency department patient visit Dr. Harish Noel Work Phone: [facility]-Emergency Department Start: 01-15-2022 Non-patient / Non-visit Dr. Madison Noel Work Phone: [facility] Start: 01-11-2022 End: 01-11-[address] Harish Noel Work Phone: [facility] Work Phone: Start: 01-11-2022 End: 01-11-[address] Harish Noel Work Phone: [facility] Start: 01-11-2022 End: 01-11-[address] Harish Noel Work Phone: [facility] Start: 01-08-2022 End: 01-08-[address] Harish Noel Work Phone: [facility] Start: 12-27-2021 End: 12-28-2021 ambulatory MS. JUAN JUAREZ TRANSMISSION ENGINEER Facility:A Start: 12-27-2021 End: 12-27-2021 Patient encounter procedure JUAN JUAREZ HAND CELL TUBER-TRANSMISSION ENGINEER [facility] Start: 12-13-2021 End: 12-14-2021 ambulatory MS. JUAN JUAREZ TRANSMISSION ENGINEER Facility:A Start: 12-13-2021 End: 12-13-2021 Patient encounter procedure JUAN JUAREZ HAND CELL [facility] Start: 12-05-2021 Non-patient / Non-visit Dr. Madison Noel Work Phone: [facility] Start: 11-23-2021 End: 11-29-2021 Evaluation and management of inpatient POLLY PHILIPPE MD Facility:A Start: 11-23-2021 End: 11-29-2021 Evaluation and management of inpatient POLLY PHILIPPE MD [facility] Start: 11-17-2021 End: 11-18-2021 ambulatory POLLY PHILIPPE MD Facility:B Start: 11-17-2021 End: 11-17-2021 Patient encounter procedure POLLY PHILIPPE MD [facility] Start: 11-05-2021 End: 11-05-2021 Emergency department patient visit Dr. Harish Noel Work Phone: [facility]-Emergency Department Start: 10-31-2021 End: 11-01-2021 ambulatory POLLY PHILIPPE MD Facility:A Start: 10-31-2021 End: 11-01-2021 ambulatory POLLY PHILIPPE MD Facility:A Start: 10-11-2021 End: 10-11-2021 Emergency department patient visit HARISH NOEL MD. Facility:A Start: 09-08-2021 End: 09-08-2021 Emergency department patient visit Dr. Harish Noel Work Phone: [facility]-Emergency Department Start: 09-05-2021 Non-patient / Non-visit Dr. Madison Noel Work Phone: [facility] Start: 09-05-2021 End: 09-05-2021 Admission to same day surgery center Dr. Harish Noel Work Phone: [facility]-Atm Manager/Special Procedures Start: 09-04-2021 Non-patient / Non-visit Dr. Madison Noel Work Phone: [facility] Start: 08-28-2021 End: 08-28-[address] Harish Noel Work Phone: [facility] Start: 07-25-2021 Non-patient / Non-visit Dr. Madison Noel Work Phone: [facility] Start: 07-24-2021 End: 07-24-[address] Harish Noel Work Phone: [facility]-Pulmonary Services/Neurology Start: 07-21-2021 Non-patient / Non-visit Dr. Madison Noel Work Phone: [facility] Start: 07-21-2021 End: 07-21-[address] Harish Noel Work Phone: [facility]-Cardiovascula r Services Start: 06-16-2021 End: 06-16-[address] Harish Noel Work Phone: [facility] Start: 06-07-2021 End: 06-07-[address] Harish Noel Work Phone: [facility]-Laboratory, [facility] Start: 06-07-2021 End: 06-07-[address] Harish Noel Work Phone: [facility] Start: 04-25-2021 End: 04-25-2021 Emergency department patient visit Dr. Harish Noel Work Phone: [facility]-Emergency Department Start: 09-15-2016 End: 09-15-2016 Emergency department patient visit [facility] Facility:[facility] Procedures Date Procedure Procedure Detail Performing [...] above: CAB[facility] Start: 11-05-2021 Plain chest [...] CABG x 2( Confirmed ) JUAN JUAREZ HAND CELL TUBER-TRANSMISSION ENGINEER History of coronary artery bypass grafting Hx of CABG Dr. Harish Noel MD Work Phone: Hysterectomy POLLY PHILIPPE MD Viral antigen assay Dr. Ida Noel Work Phone: Plan of Treatment Date Care Activity Detail Author Start: 07-02-2024 Patient referral [facility] Work Phone: Start: 04-30-2024 Patient discharge [facility] Start: 04-30-2024 Inhalation therapy procedure [facility] Start: 04-29-2024 Following clinical p athway protocol [facility] Start: 04-29-2024 Assessment of risk o f venous thromboembolism [facility] Start: 04-29-2024 Care regimes management [facility] Start: 04-29-2024 Catheterization of vein [facility] Start: 04-29-2024 Incentive spirometry [facility] Start: 04-29-2024 Insertion of cathete r into peripheral vein [facility] Start: 04-29-2024 Measuring intake and output [facility] Start: 04-29-2024 Notification of physician [facility] Start: 04-29-[address] [facility] Start: 04-29-2024 Providing care accor ding to standard [facility] Start: 04-29-2024 Provision of activity privileges [facility] Start: 04-29-2024 Referral to service [facility] Start: 04-29-2024 End: 04-29-2024 [facility] Start: 04-29-2024 Admission procedure [facility] Start: 04-29-2024 Patient referral to dietitian [facility] Start: 05-16-2022 Patient referral [facility] Work Phone: Start: 04-11-2022 Patient referral [facility] Work Phone: Start: 11-05-2021 [facility] Work Phone: Start: 09-08-2021 [facility] Work Phone: Patient Education [facility] Work Phone: Patient referral [facility] Work Phone: Payers Date Payer Category Payer Unknown [id number] 2023 Self-pay [id number] 2021 Medicare [id number] fad [id number] 2016 Medicaid [id number] 1950 Unknown [id number] 2.16.8 [id number] 1950 Unknown [id number] 2.16.8 [id number] 1950 Unknown [id number] 2.16.8 [id number] 1950 Unknown [id number] 2.16.8 [id number] 1950 Unknown [id number] 2.16.8 [id number] 1950 Unknown [id number] 2.16.8 [id number] 1950 Unknown [id number] 2.16.8 [id number] Unknown [id number] 2.16.8 [id number] Unknown [id number] 2.16.8 [id number] Unknown [id number] 2.16.8 [id number] Unknown [id number] 2.16.8 [id number] Unknown [id number] 2.16.8 [id number] Unknown [id number] 2.16.8 [id number] Unknown [id number] 2.16.8 [id number] Unknown [id number] 2.16.8 [id number] Unknown [id number] 2.16.8 [id number] Unknown [id number] 2.16.8 [id number] Unknown [id number] 2.16.8 [id number] Unknown [id number] 2.16.8 [id number] Unknown [id number] 2.16.8 [id number] Social History Date Type Detail Facility Start: 06-16-2021 End: 07-28-2022 Tobacco smoking status NHIS Unknown if ever smoked [facility] Start: 07-05-2020 Non-smoker [facility] Start: 1950 Sex Assigned At Female [facility] Start: 10-31-2021 End: 04-29-2024 Tobacco smoking status Ex-smoker (finding) [facility] Comment on above: Quit in 2015 Start: 07-22-2024 Sex Female (finding) [facility] Goals Date Patient Goal Desired Activity /State Functional Status Date Assessment Result Facility 04-30-2024 Functional status Ambulates;Bathroom Priv ilege [facility] Work Phone: 11-29-2021 Functional Status Supervised 1 [facility] 11-29-2021 Functional Status COVID 19 Surge in Effec t Yes [facility] 11-28-2021 Functional Status Ambulation in [facility] 11-28-2021 Functional Status [facility] 11-28-2021 Functional Status Mod I [facility] 11-28-2021 Functional Status Supervised 12 [facility] 11-28-2021 Functional Status Bath cloths, Shampoo/Body wash (no rinse) [facility] 11-27-2021 Functional Status [facility] 11-27-2021 Functional Status [facility] 11-27-2021 Functional Status Done [facility] 11-27-2021 Functional Status bilateral knee high [facility] 11-27-2021 Functional Status [facility] 11-26-2021 Functional Status [facility] 11-25-2021 Functional Status No falls in th e last 6 months, per pt. [facility] 11-25-2021 Functional Status [facility] 11-25-2021 Functional Status [facility] 11-25-2021 Functional Status SCD On/Re-appl ied bilateral knee high [facility] 11-25-2021 Functional Status [facility] 11-25-2021 Functional Status [facility] 11-24-2021 Functional Status preventative foam dress ing [facility] 11-24-2021 Functional Status 100 [facility] 11-24-2021 Functional Status Apartment, Single level home [facility] 11-23-2021 Functional Status [facility] 11-23-2021 Functional Status Special Call D evice Unable to use call device [facility] 11-23-2021 Functional Status [facility] 11-23-2021 Functional Status [facility] 11-23-2021 Functional Status Sensory Deficits None [facility] Mental Status Date Assessment Result Facility 04-30-2024 Cognitive function Voice/Name [facility] Work Phone: 11-29-2021 Mental Status Oriented x [address] [facility] 11-29-[address] [facility] 11-28-[address] [facility] 11-05-2021 Cognitive function Voice/Name [facility] Work Phone: 09-08-2021 Cognitive function Level Of Cons ciousness Awake;Alert;Appropriate;Follow s Commands [facility] Work Phone: 04-25-2021 Cognitive function Voice/Name [facility] Work Phone: Clinical Notes 03-18-2016 to 04-30-2024 Note Date & Type Note Facility 04-30-2024 Note [facility] Medical Records Department [address] [place] [address] Discharge Summary 04/30/24 1446 MR#: [id number] Acct: [id number] Name: FELICITAS ALCANTARA Rep #: [id number] : 1950 73 From: Nathan Torres DO PCP: Dr. Harish Noel MD Status:ADM RUBINA Location: [place] [address] Providers Date of Admission: 04/29/24 Primary Care [...] 79.6 H, Lymph % (Auto) 12.1 L, [place] % (Auto) 4.9, Eos % (Auto) 2.3, [...] Clarity Clear, Urine pH 8.0, Ur Specific [place] 1.010, Urine Protein Negative, Urine Glucose (UA) [...] 90.6 H, Lymph % (Auto) 7.1 L, [place] % (Auto) 0.5, Eos % (Auto) 0.0, [...] cardiomegaly. Otherwise unremarkable chest radiograph. Reading Location: [id number] D/C Instructions Discharge Diet: 2000 Calorie Control [...] (more content not included)... [facility] 04-29-2024 Evaluation note Diagnosis Onset Date [...] July 02 12:52pm 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 chronic July 02, 2024 12:52pm Essential hypertension chronic July 02, 2024 12:52pm Hyperlipemia chronic July 02, 2024 12:52pm Hypothyroidism chronic June 12:52pm Type 2 diabetes mellitus chronic July 02, 2024 12:52pm Chest pain noneactive July 02 12:52pm [facility] Work Phone: 1(251) 543-574411-06-2022 Hospital Discharge instructions Additional Instructions 2 puffs of albuterol metered-dose inhaler every 4-6 hours for shortness of breath or wheezing.[facility] Work Phone: 1(340) 435-523210-13-2022 Note ORIGINAL EXAMINATION: TWO XRAY VIEWS OF [...] Sign Date: 12/28/2021 12:02:56 AM Ordering Provider: [facility]10-12-2022 Note ORIGINAL EXAMINATION: TWO XRAY VIEWS [...] Sign Date: 12/28/2021 12:02:56 AM Ordering Provider: [facility]09-16-2022 Evaluation + Plan note Future Scheduled Tests Laboratory* Basic Metabolic Panel 12/01/21 Radiology* XR Chest 2 Views (PA & Lateral) 12/19/21 [facility] 09-15-2022 Note ORIGINAL EXAMINATION: TWO XRAY [...] 11/30/2021 12:35:45 AM [facility]ing Provider[facility]N [id number] Note Discharge Instructions Thank you for allowing [facility] to assist you with your healthcare needs. The following is importantdischarge information regarding your hospital visit. Your Care Team HARISH NOEL MD Your Diagnosis CAD IN L[place] ARTERY s/p PCI 2015; s/p CABG x2 [...] Op 12/05/2021 10:00 AM EDT JUAN [facility]Z [facility] Cardiothoracic Surgery Follow Up Appointments Follow Up with JUAN JUAREZ When 12/05/2021 10:00 AM EDT Why: This will be with Dr. Philippe's nurse practitioner. Please present to [place] radiology department 1 hour prior to this visit for chest x-ray. Chest padmini will be removed at this visit. Where: [address] A-2 LOBO [address] [facility] [place] [address]- Follow Up with Discharge to [facility] LOC [phone] When Within 1-2 days Follow Up with GAGE CHIRINOS MD, [facility] When Why: Please call rianna for follow-up appointment in 4-6 weeks (re: diabetes), can schedule at [place] office. Bring blood glucose meter with you to your appointment. Where: [address], [place] [address] [phone] Follow Up with SAQIB FRASER MD, [facility], [facility] Service When Within 1-2 days Why: Please call to arrange a hospital follow-up and possible trial void. Where: [address] [facility] [address] [place] [address]- [phone] Follow Up with HARISH NOEL MD When Within 1-2 days Why: Please call to arrange a hospital follow-up. Where: [address] [place] [address]- [phone] Follow Up with free When Why: Follow up with primary care to have a Sleep Study ordered Where: Follow Up with Cardiac Rehab When Why: The Cardiac Rehab department will call you in 6 weeks to schedule you for phase 2. Informationgiven about cardiac rehab. If you have any questions please call [phone]. Where: [address] [facility] [place] [address]- The Following Activity and Diet Have Been [...] to: POLLY PHILIPPE MD, Please present to [place] radiology department 1 hour prior to office [...] different for every person. A diet and nutrition assistant (registered dietitian) can help you [...] 15 g of carbohydrates: hamburger bun or Yemeni muffin. oz (15 mL) syrup. oz (14 [...] Identify the foods that contain carbohydrates: Rice. [place]. Milk. Strawberries. 2. Calculate how many servings [...] you manage your diabetes. A diet and nutrition assistant (registered dietitian) can help you make a meal plan and calculate how many carbohydrates you should have at each meal and snack. This information is not intended to replace advice given to you by your health care provider. Make sure you discuss any questions you have with your health care provider. Document Released: 03/04/2006 Document Revised: 09/26/2017 Document Reviewed: 08/15/2016 SocialRep Patient Education 2020 [employer]. OPEN HEART SURGERY (Bypass or Valve [...] diet and you may take a mild lpxe-yoz-thycfzt laxative like Milk of Magnesia . CARDIAC [...] call your surgeon or your heart doctor. [place] also has a free stop smoking program called Give it Up and if you want to attend, pleasecall [phone] ([phone]). Call the Surgeon If your incisions are [...] in your calf. Call the Heart Doctor (Hand Cementer) If your heart beats are irregular or [...] to receive it can visit one of [facility] vaccine clinics. There are many vaccine clinic locations within the [facility]. For locations and available times, please visit https://[email or web address].gov/. It is important to note that some COVID mobile vaccine clinics are held outdoors and may be canceled in rainy or stormy conditions. To learn more about pediatric vaccinations (ages 5-11), we invite you to visit the [facility] webpage. https://www.[facility].org/pages/2706-Ygyuw-Nofasdiooon-Xlcljhkkep-Kkixy-Shz stions.htmlTo learn more about the COVID-19 vaccine, we invite you to visit the [employer] website for a list of frequently asked questions. [email or web address]-[email or web address]/[email or web address]-Nebutvmlap _Asked-Questions.pdf [place] [employer] Patient Portal Access Instructions: Stay connected with your healthcare team and access your personal medical information anytime with the [facility] Patient Portal.If you would like a full copy of your medical records, please contact the [facility] Medical Records Department, Saturday through Saturday between 8a.m. and 4:30p.m. Please follow the directions below to access the portal: 1.Access the email account you provided upon registration to the [facility].2.Look for an invitation email from [facility].3.Open the email and access the invitation link: Accept Invitation to [place] [employer]4.Fill in the required singer to create your account. Sign into [email or web address] with your username and password that you [...] you will allow to register on the [place] [employer] Patient Portal for access to your information. You can also access the [facility] Patient Portal on the [employer] ina. Simply click on Health Records under [employer] and then click on the [facility] [...] Call your local pharmacy or go to http://bit.ly/0M1Nb6a to find one close to you.3.Make use of household items: Use cat litter or old coffee grounds to dispose medications if other options arenot available. Mix your drugs with these household products, seal them in an airtight container andthrow it into the garbage. Call [facility]: [phone] to be sure your drugs can be [...] am aware that I should contactmy doctor. 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 Signature: Date/Time: Relationship to Patient: Witness Name/Signature: Date/Time: [facility]00 Endocrinology Progress note Date of Service 11/29/2021 [...] Glucose, Capillary 11/29/2021 07:28:00 EDT 174 mg/dL WI 82-115 Glucose Testing Glucose Level 11/29/2021 04:54:00 EDT 168 mg/dL WI 82-115 Glucose Testing Blood Glucose, Capillary 11/28/2021 20:21:00 EDT 159 mg/dL WI 82-115 Glucose Testing Blood Glucose, Capillary 11/28/2021 16:40:00 EDT 159 mg/dL HI 82-115 Y Glucose Testing Blood Glucose, Capillary 11/28/2021 11:53:00 EDT 202 mg/dL WI 82-115 Glucose Testing Blood Glucose, Capillary 11/28/2021 07:15:00 EDT 205 mg/dL WI 82-115 EKG No qualifying data available. Assessment/Plan 1. CAD IN LOWER SIOUX ARTERY s/p PCI 2015; s/p CABG x2 [...] had a cardiac catheterization completed with her director clinical applications, Dr. Jewell in [place] which revealed an EF of 55% with [...] by DIVINA DOSS on 11/29/2021 11:37 AM [id number] Discharge instructions Patient Education 11/29/2021 08:48:47 [...] 05/16/2007 Document Revised: 03/03/2018 Document Reviewed: 03/03/2018 SocialRep Patient Education 2020 [employer]. 11/29/2021 08:48:46 Carbohydrate Counting for Diabetes Mellitus, [...] different for every person. A diet and nutrition assistant (registered dietitian) can help you [...] 15 g of carbohydrates: hamburger bun or Yemeni muffin. oz (15 mL) syrup. oz (14 [...] 1.Identify the foods that contain carbohydrates: Rice. [place]. Milk. Strawberries. 2.Calculate how many servings you [...] you manage your diabetes. A diet and nutrition assistant (registered dietitian) can help you make a meal plan and calculate how many carbohydrates you should have at each meal and snack. This information is not intended to replace advice given to you by your health care provider. Make sure you discuss any questions you have with your health care provider. Document Released: 03/04/2006 Document Revised: 09/26/2017 Document Reviewed: 08/15/2016 SocialRep Patient Education 2020 [employer]. 11/29/2021 08:48:44 8- Open Heart Surgery (Bypass [...] diet and you may take a mild fijx-mdo-tgaxbka laxative like Milk of Magnesia . CARDIAC [...] call your surgeon or your heart doctor. [place] also has a free stop smoking program called Give it Up and if you want to attend, pleasecall [phone] ([phone]). Call the Surgeon If your incisions are [...] in your calf. Call the Heart Doctor (Hand Cementer) If your heart beats are irregular or [...] Follow Up Care 10/11/2021 14:55:42 With:Discharge to [facility] [phone] Address:Unknown When:1-2 days With:GAGE CHIRINOS MD, [facility] Address: [address] [place] [address] [phone] When: Unknown Comments:Please call rianna for follow-up appointment in 4-6 weeks (re: diabetes), can schedule at [facility]. Bring blood glucose meter with you to your appointment. With:SAQIB FRASER MD, [facility], Urology Service Address: [address] [facility] [address] [place] [address]- [phone] When:1-2 days Comments:Please call to arrange a hospital follow-up and possible trial void. With:HARISH NOEL MD Address: [address] [place] [address] [phone] When:1-2 days Comments:Please call to arrange a hospital follow-up. With:JUAN JUAREZ APRN-TRANSMISSION ENGINEER Address: [address] [place] [address] A-2 LOBO [address] [facility] [place] [address]- When:12/05/2021 10:00:00 Comments:This will be with Dr. Philippe's nurse practitioner. Please present to [place] [facility] department 1 hour prior to this visit for chest x-ray. Chest padmini will be removed at this visit. With:free Address: When: Unknown Comments:Follow up with primary care to have a Sleep Study ordered With:Cardiac Rehab Address: [address] [place] [address] [place] [address]- When: Unknown Comments:The Cardiac Rehab department will call you in 6 weeks to schedule you for phase 2. Information given about cardiac rehab. If you have any questions please call [phone]. [facility] 09-14-2022 Discharge summary Date of Service 11/29/2021 Discharge Diagnosis 1. CAD IN LOWER SIOUX ARTERY s/p PCI 2016; s/p CABG x2 [...] (R32 - ICD-10-CM) 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 (I25.10 - [...] (one day only), Blood, Once, Preferred Lab: [facility], Stop date 11/29/21 4:00:00 EDT(Complete) Other status: CBC,11/29/21 5:01:00 EDT, Next AM Draw (one day only), Blood, Once, Preferred Lab: [facility], Stop date 11/29/21 4:00:00 EDT(Complete) Ordered: Communication Order (scheduled),11/29/21 9:18:00 EDT, Once, 11/29/21 9:18:00 EDT, Temporary pacer wires removed at 8:30 AM. [facility] after 12:30 PM. Discontinued: Coreg,Start: 11/28/21 8:00:00 [...] Refill(s) Ordered: Discharge,11/29/21 9:18:00 EDT, Discharged to: [facility] [place] Ordered: Discharge Blood Glucose Monitoring,When [...] to: POLLY PHILIPPE MD, Please present to [place] [facility] department 1 hour prior to office [...] She hada cardiac catheterization completed with her director clinical applications, Dr. Jewell in [place] which revealed an EF of 55% with [...] nebs. nitroprusside drip has been weaned off. [place] [facility]inology consulted for diabetic management. PT/OT consulted. [...] obtain urinalysis and urine culture, and consult [place] [facility]. WBC 20.3 this morning. Discontinue A-line. [...] greater than 200 cc. Likely [facility]. [1]POD #6: Patient feels much better today. Denies any nausea. She is anxious to leave today. SPO2 93 to 95% on 1.5 L nasal cannula (87% on room air). CBC and BMP reviewed with Dr. Philippe as well as chest x-ray. Patient is cleared to be discharged to [facility] per Dr. Philippe. We will increase carvedilol [...] and will need to follow-up with the [place] urology for possible trial void versus catheter [...] obtusemarginal coronary artery. [2] Consults Consult to [place] [facility] - Ordered -- 11/24/21 6:54:00 [...] bra or breast support. Medications New Prescription [id number] Milligram by mouth every 4 hours as [...] pain. Refills: 3. I have reviewed the [place] Automated Rx Reporting System (OARRS) report for [...] Dr. Philippe's nurse practitioner. Please present to [place] radi[facility] department 1 hour prior to this visit for chest x-ray. Chest padmini will be removed at this visit. Where: [address] [facility] [address] [facility] [place] [address]- Follow Up with Discharge to [facility] LOC [phone] When Within 1-2 days Follow Up with GAGE CHIRINOS MD, [facility] When Why: Please call rianna for follow-up appointment in 4-6 weeks (re: diabetes), can schedule at [facility]. Bring blood glucose meter with you to your appointment. Where: [address], [place] [address] [phone] Follow Up with SAQIB FRASER MD, [facility], Urology Service When Within 1-2 days Why: Please call to arrange a hospital follow-up and possible trial void. Where: [address] [facility] [address] [place] [address] [phone] Follow Up with HARISH NOEL MD When Within 1-2 days Why: Please call to arrange a hospital follow-up. Where: [address] [place] [address]- [phone] Follow Up with free When Why: Follow up with primary care to have a Sleep Study ordered Where: Follow Up with Cardiac Rehab When Why: The Cardiac Rehab department will call you in 6 weeks to schedule you for phase 2. Informationgiven about cardiac rehab. If you have any questions please call [phone]. Where: [address] [facility] [place] [address]- Follow Up Appointments Transfer of Care OT [...] to: POLLY PHILIPPE MD, Please present to [place] [facility] department 1 hour prior to office [...] To Patient [1] Progress Note; NAT DUNN APRN-TRANSMISSION ENGINEER 11/28/2021 10:10 EDT [2] OPERATIVE NOTE; POLLY PHILIPPE MD 11/23/2021 00:00 EDT Digitally Signed by NAT DUNN APRN-TRANSMISSION ENGINEER on 11/29/2021 02:50 PM [id number] Note Discharge Instructions Thank you for allowing [facility] to assist you with your healthcare needs. The following is importantdischarge information regarding your hospital visit. Your Care Team HARISH NOEL MD Your Diagnosis CAD IN LOWER SIOUX ARTERY s/p PCI 2015; s/p CABG x2 [...] Op 12/05/2021 10:00 AM EDT JUAN JUAREZ [facility] Follow Up Appointments Follow Up with JUAN JUAREZ When 12/05/2021 10:00 AM EDT Why: This will be with Dr. Philippe's nurse practitioner. Please present to [place] [facility] department 1 hour prior to this visit for chest x-ray. Chest padmini will be removed at this visit. Where: [address] A-[address] LOB[address] [facility] [place] [address]- Follow Up with Discharge to [facility] LOC [phone] When Within 1-2 days Follow Up with GAGE CHIRINOS MD, [facility] When Why: Please call rianna for follow-up appointment in 4-6 weeks (re: diabetes), can schedule at [place] office. Bring blood glucose meter with you to your appointment. Where: [address], [place] [address] [phone] Follow Up with SAQIB FRASER MD, [facility], [facility] When Within 1-2 days Why: Please call to arrange a hospital follow-up and possible trial void. Where: [address] [facility] [address] [place] [address]- [phone] Follow Up with HARISH NOEL MD When Within 1-2 days Why: Please call to arrange a hospital follow-up. Where: [address] [place] [address] [phone] Follow Up with free When Why: Follow up with primary care to have a Sleep Study ordered Where: Follow Up with Cardiac Rehab When Why: The Cardiac Rehab department will call you in 6 weeks to schedule you for phase 2. Informationgiven about cardiac rehab. If you have any questions please call [phone]. Where: [address] [facility] [place] [address]- The Following Activity and Diet Have Been [...] to: POLLY PHILIPPE MD, Please present to [place] radiology department 1 hour prior to office [...] different for every person. A diet and nutrition assistant (registered dietitian) can help you [...] 15 g of carbohydrates: hamburger bun or Yemeni muffin. oz (15 mL) syrup. oz (14 [...] Identify the foods that contain carbohydrates: Rice. [place]. Milk. Strawberries. 2. Calculate how many servings [...] you manage your diabetes. A diet and nutrition assistant (registered dietitian) can help you make a meal plan and calculate how many carbohydrates you should have at each meal and snack. This information is not intended to replace advice given to you by your health care provider. Make sure you discuss any questions you have with your health care provider. Document Released: 03/04/2006 Document Revised: 09/26/2017 Document Reviewed: 08/15/2016 SocialRep Patient Education 2020 [employer]. OPEN HEART SURGERY (Bypass or Valve [...] diet and you may take a mild plyj-urq-rmlcirp laxative like Milk of Magnesia . CARDIAC [...] call your surgeon or your heart doctor. [place] also has a free stop smoking program called Give it Up and if you want to attend, pleasecall [phone] ([phone]). Call the Surgeon If your incisions are [...] in your calf. Call the Heart Doctor (Hand Cementer) If your heart beats are irregular or [...] to receive it can visit one of [facility] vaccine clinics. There are many vaccine clinic locations within the [facility]. For locations and available times, please visit https://[email or web address].[place].gov/. It is important to note that some COVID mobile vaccine clinics are held outdoors and may be canceled in rainy or stormy conditions. To learn more about pediatric vaccinations (ages 5-11), we invite you to visit the [facility] webpage. https://www.[facility].org/pages/9940-Nrurh-Xfvoxvwidvz-Xilvejwrby-Sraeb-Idp stions.htmlTo learn more about the COVID-19 vaccine, we invite you to visit the [employer] website for a list of frequently asked questions. [email or web address]/[email or web address]-[email or web address] _Asked-Questions.pdf [employer] Patient Portal Access Instructions: Stay connected with your healthcare team and access your personal medical information anytime with the [employer] Patient Portal.If you would like a full copy of your medical records, please contact the [facility] Medical Records Department, Saturday through Saturday between 8a.m. and 4:30p.m. Please follow the directions below to access the portal: 1.Access the email account you provided upon registration to the hospital.2.Look for an invitation email from [facility].3.Open the email and access the invitation link: Accept Invitation to [facility]4.Fill in the required singer to create your account. Sign into [email or web address] with your username and password that you [...] will allow to register on the [facility] Patient Portal for access to your information. You can also access the [facility] Patient Portal on the [employer]. Simply click on Health Records under [employer] and then click on the [employer] logo. HOW TO SAFELY DISPOSE OF PRESCRIPTION [...] Call your local pharmacy or go to http://bit.ly/1V1Vu1x to find one close to you.3.Make use of household items: Use cat litter or old coffee grounds to dispose medications if other options arenot available. Mix your drugs with these household products, seal them in an airtight container andthrow it into the garbage. Call [facility]: [phone] to be sure your drugs can be [...] am aware that I should contactmy doctor. 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 Patient tolerated well. Patient instructed to remain bedrest for 1 hour. Digitally Signed by NAT DUNN APRN-TRANSMISSION ENGINEER on 11/29/2021 08:44 AM [facility] [id number] Note ORIGINAL EXAMINATION: TWO XRAY VIEWS OF [...] Date: 11/30/2021 12:35:45 AM Ordering Provider: NAT A[facility]BEM[facility]orial Health SystemRrenpzjy90-66-3625 Nurse Progress note Student's documentation was reviewed and all medications were verified prior to administration. Digitally Signed by Windy Jaimes RN on 11/28/2021 06:34 PM [facility] HospitalVhavyvbd81-10-2880 Note Date of Service 11/28/2021 Chief Complaint POD #5 This is a 71-year-old female with past medical history of CAD status post PCI in 2016, hypothyroidism, hypertension, hyperlipidemia, irritable bowel syndrome, diabetes, history of DVT, history of tobacco use (quit 6 years ago), history of GI bleeds requiring blood transfusions, and obesity. She hada cardiac catheterization completed with her director clinical applications, Dr. Jewell in [place] which revealed an EF of 55% with [...] nebs. nitroprusside drip has been weaned off. [place] [facility]inology consulted for diabetic management. PT/OT consulted. [...] obtain urinalysis and urine culture, and consult [place] [facility]. WBC 20.3 this morning. Discontinue A-line. Keep in ICU. [facility]. Wean O2. Voiding [...] greater than 200 cc. Likely [facility]. Subjective Patient resting comfortably in bed. [...] access: Left subclavian triple-lumen Disposition: [facility] [place] Weight Current Weight Dosing Weight: 102.3 kg [...] 11/26/21 20:59:00 EDT Assessment/Plan 1. CAD IN LOWER SIOUX ARTERY s/p PCI 2016; s/p CABG x2 [...] Diabetes mellitus Hgb A1c 9.7% Followed by [place] [facility]. Glucoses ranging 172-240. On Humalog sliding [...] negative. 15. Postoperative urinary retention Followed by [place] [facility]. Urine culture negative. Plan to remove [...] many are missed. [1] Progress Note; KAELYN DREWBILINGUAL BRANCH MANAGER 11/27/2021 08:52 EDT Digitally Signed by NAT DUNN on 11/28/2021 10:23 AM [facility] [id number] Endocrinology Progress note Date of Service 11/28/2021 [...] Glucose, Capillary 11/28/2021 11:53:00 EDT 202 mg/dL WI 82-115 Glucose Testing Blood Glucose, Capillary 11/28/2021 07:15:00 EDT 205 mg/dL HI 82-115 Glucose Testing Blood Glucose, Capillary 11/27/2021 21:05:00 EDT 172 mg/dL HI 82-115 Glucose Testing Blood Glucose, Capillary 11/27/2021 16:40:00 EDT 240 mg/dL HI 82-115 Y Glucose Testing Blood Glucose, Capillary 11/27/2021 11:19:00 EDT 168 mg/dL WI 82-115 Glucose Testing Blood Glucose, Capillary 11/27/2021 07:17:00 EDT 166 mg/dL WI 82-115 EKG No qualifying data available. Assessment/Plan 1. CAD IN LOWER SI[place] ARTERY s/p PCI 2015; s/p CABG x2 [...] had a cardiac catheterization completed with her director clinical applications, Dr. Jewell in [place] which revealed an EF of 55% with [...] by DIVINA DOSS on 11/28/2021 01:30 PM [facility] [id number] Nurse Progress note Patient refused morning potassium, education provided on why patient was prescribed this supplement, patient stated she couldn't take any more pills this morning. Patient stated she wanted to sign herself out, did not want to go to an extended care facility for therapy. More education provided. Digitally Signed by Ina Dukes RN on 11/28/2021 12:16 PM [facility] [id number] Note Date of Service 11/28/2021 Chief Complaint POD #5 This is a 71-year-old female with past medical history of CAD status post PCI in 2016, hypothyroidism, hypertension, hyperlipidemia, irritable bowel syndrome, diabetes, history of DVT, history of tobacco use (quit 6 years ago), history of GI bleeds requiring blood transfusions, and obesity. She hada cardiac catheterization completed with her director clinical applications, Dr. Jewell in [place] which revealed an EF of 55% with [...] nebs. nitroprusside drip has been weaned off. [place] [facility] consulted for diabetic management. PT/OT consulted. [...] obtain urinalysis and urine culture, and consult [place] [facility]. WBC 20.3 this morning. Discontinue A-line. Keep in ICU. [facility]. Wean O2. Voiding [...] greater than 200 cc. [facility]. Subjective Patient resting comfortably in bed. [...] access: Left subclavian triple-lumen Disposition: [facility] [place] Weight Current Weight Dosing Weight: 102.3 kg [...] 11/26/21 20:59:00 EDT Assessment/Plan 1. CAD IN [place] ART[place] s/p PCI 2016; s/p CABG x2 [...] are missed. [1] Progress Note; KAELYN DREW APRN-BILINGUAL BRANCH MANAGER 11/27/2021 08:52 EDT Digitally Signed by NAT DUNN on 11/28/2021 10:23 AM [id number] Note. MICRO - Microbiology PROCEDURE: Urine Culture [...] Locations *1: This test was performed at: [address], [facility] , [facility] ([place])11-28-2021 Note ORIGINAL EXAMINATION: TWO XRAY VIEWS OF [...] Sign Date: 11/28/2021 8:13:29 AM Ordering Provider: [facility]09-13-2022 Note ORIGINAL EXAMINATION: TWO XRAY VIEWS OF [...] Sign Date: 11/28/2021 8:13:29 AM Ordering Provider: [facility]09-12-2022 Endocrinology Progress note Date of Service 11/27/2021 [...] Glucose, Capillary 11/27/2021 16:40:00 EDT 240 mg/dL WI 82-115 Y Glucose Testing Blood Glucose, Capillary 11/27/2021 11:19:00 EDT 168 mg/dL HI 82-115 Glucose Testing Blood Glucose, Capillary 11/27/2021 07:17:00 EDT 166 mg/dL HI 82-115 Glucose Testing Blood Glucose, Capillary 11/26/2021 23:04:00 EDT 137 mg/dL WI 82-115 Glucose Testing Blood Glucose, Capillary 11/26/2021 20:38:00 EDT 142 mg/dL WI 82-115 Glucose Testing Blood Glucose, Capillary 11/26/2021 16:40:00 EDT 161 mg/dL WI 82-115 Glucose Testing Blood Glucose, Capillary 11/26/2021 11:24:00 EDT 243 mg/dL WI 82-115 Glucose Testing Blood Glucose, Capillary 11/26/2021 07:35:00 EDT 165 mg/dL WI 82-115 EKG EKG - Completed -- 11/26/21 20:59:00 EDT Electrocardiogram - InProcess -- 11/27/21 6:00:00 EDT, On the 4th post op day Assessment/Plan 1. CAD IN L[place] ART[place] s/p PCI 2015; s/p CABG x2 [...] had a cardiac catheterization completed with her director clinical applications, Dr. Jewell in [place] which revealed an EF of 55% with [...] by DIVINA DOSS on 11/27/2021 10:48 PM [id number] Note Date of Service 11/27/2021 postop day #4 Chief Complaint This is a 71-year-old female with past medical history of CAD status post PCI in 2016, hypothyroidism, hypertension, hyperlipidemia, irritable bowel syndrome, diabetes, history of DVT, history of tobacco use (quit 6 years ago), history of GI bleeds requiring blood transfusions, and obesity. She hada cardiac catheterization completed with her director clinical applications, Dr. Jewell in [place] which revealed an EF of 55% with [...] nebs. nitroprusside drip has been weaned off. [place] [facility] consulted for diabetic management. PT/OT consulted. [...] obtain urinalysis and urine culture, and consult [place] [facility]. WBC 20.3 this morning. Discontinue A-line. [...] inflammatory process. [1] Assessment/Plan 1. CAD IN L[place] ART[place] s/p PCI 2016; s/p CABG x2 [...] by KAELYN DREW on 11/27/2021 09:00 AM [facility] [id number] Note ORIGINAL EXAMINATION: TWO XRAY VIEWS OF [...] 11/27/2021 7:51:49 AM Ordering Provider: NAT DUNN [facility] [id number] Note ORIGINAL EXAMINATION: TWO XRAY VIEWS OF [...] Sign Date: 11/27/2021 7:51:49 AM Ordering Provider: [facility]09-11-2022 Nurse Progress note Patient had increased SOB and chest pain around 2100. EKG obtained showing SR with RBBB, unchanged from prior. Dr. Kohler notified or patient status, orders obtained from CXR and ABG. Results discussedwith Dr. Kohler, order for patient to go on bipap and recheck ABG in 1 hour. 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 Patient thoroughly educated [...] Avis Peters RN on 11/26/2021 10:49 PM [facility] [id number] Note ORIGINAL EXAMINATION: ONE XRAY VIEW OF [...] Date: 11/26/2021 9:26:00 PM Ordering Provider: [facility]09-11-2022 Note ORIGINAL EXAMINATION: ONE XRAY VIEW OF [...] Sign Date: 11/26/2021 9:26:00 PM Ordering Provider: [facility]09-11-2022 Endocrinology Progress note Date of Service 11/26/21 [...] qualifying data available. Assessment/Plan 1. CAD IN L[place] ART[place] s/p PCI 2015; s/p CABG x2 [...] She hada cardiac catheterization completed with her director clinical applications, Dr. Jewell in [place] which revealed an EF of 55% with [...] A1c goals, glycemic targets. Would benefit from extractor tender raw stock and clinical trial educator evaluation. Appreciate their input. She is [...] by CRYSTAL PRESSLEY on 11/26/2021 04:48 PM [facility] [id number] Urology Consult note Date of Service 11/26/21 Reason for Consultation Urinary retention Referring Physician Dr. Kohler History of Present Illness s/p 2v CABG by Dr. Philippe on 11/23/21. [place] was removed postop. Patient was voiding freely. She complained of dysuria. UA was negative for UTI. OMH=626 cc. [place] catheter was inserted. Patient has [...] (2) No ventral hernias. Musculoskeletal: (1) Normal can pusher strength and tone bilaterally. Neurologic: (1) Grossly [...] Negative. (11/26/21 07:27:00) Assessment/Plan 1. CAD IN [place] ART[place] s/p PCI 2016; s/p CABG x2 [...] List/Past Medical History Ongoing Bronchitis CAD IN [place] ART[place] CARDIOGENIC SHOCK CHEST PAIN IN ADULT [...] mg= 1 tab(s), Oral, qDayAC Sore Throat Hagaman, 1 spray(s), Topical, q1h, PRN Surfak Stool [...] SAQIB FRASER MD on 11/26/2021 11:01 AM [facility] [id number] Pulmonary Progress note Date of Service 11/26/2021 Chief Complaint 71-year-old female with past medical history of CAD status post PCI in 2016, hypothyroidism, hypertension, hyperlipidemia, irritable bowel syndrome, diabetes, history of DVT, history of tobacco use (quit 6 years ago), history of GI bleeds requiring blood transfusions, and obesity. She had a cardiac catheterization completed with her director clinical applications, Dr. Jewell in [place] which revealed an EF of 55% with [...] qualifying data available. Assessment/Plan 1. CAD IN L[place] ARTERY s/p PCI 2015; s/p CABG x2 [...] DOLORES CARRILLO MD on 11/26/2021 10:48 AM [facility] [id number] Nurse Progress note Patient refusing to sit in chair for meals and refusing to ambulate per physician orders, despite education of expectations and complications from failure to do these. Digitally Signed by LARS Lopez on 11/26/2021 08:08 AM [facility] [id number] Note Date of Service 11/26/2021 Chief Complaint POD #3 This is a 71-year-old female with past medical history of CAD status post PCI in 2016, hypothyroidism, hypertension, hyperlipidemia, irritable bowel syndrome, diabetes, history of DVT, history of tobacco use (quit 6 years ago), history of GI bleeds requiring blood transfusions, and obesity. She hada cardiac catheterization completed with her director clinical applications, Dr. Jewell in [place] which revealed an EF of 55% with [...] nebs. nitroprusside drip has been weaned off. [place] [facility] consulted for diabetic management. Currently on [...] obtain urinalysis and urine culture, and consult [place] [facility]. WBC 20.3 this morning. Chest x-ray [...] qualifying data available. Assessment/Plan 1. CAD IN [place] ART[place] s/p PCI 2015; s/p CABG x2 11/23/21, EF55% Normal sinus rhythm. Heart rate ranging 84-88. Blood pressures ranging 127/66- 147/65. No aspirin orstatin secondary to allergies. On carvedilol. Weight down 1.5 kg since yesterday. On Bumex/KCl. 2. Acute blood loss anemia H&H 10.3 and 31.7. 3. Diabetes mellitus Hgb A1c 9.7% Followed by [place] inpatient [facility]ocrinology. Glucoses ranging 94-209. On Humalog [...] by NAT DUNN on 11/26/2021 10:49 AM [facility] [id number] Note ORIGINAL EXAMINATION: ONE XRAY VIEW OF [...] 11/26/2021 6:50:40 AM Ordering Provider: NAT DUNN [facility] [id number] Note ORIGINAL EXAMINATION: ONE XRAY VIEW OF [...] Date: 11/26/2021 6:50:40 AM Ordering Provider: NAT [facility]09-10-2022 Endocrinology Progress note Date of Service 11/25/21 [...] qualifying data available. Assessment/Plan 1. CAD IN [place] ART[place] s/p PCI 2016; s/p CABG x2 [...] She hada cardiac catheterization completed with her director clinical applications, Dr. Jewell in [place] which revealed an EF of 55% with [...] A1c goals, glycemic targets. Would benefit from extractor tender raw stock and clinical trial educator evaluation. Appreciate their input. She is [...] by CRYSTAL PRESSLEY on 11/25/2021 05:28 PM [facility] [id number] Pulmonary Progress note Date of Service 11/25/2021 Chief Complaint 71-year-old female with past medical history of CAD status post PCI in 2016, hypothyroidism, hypertension, hyperlipidemia, irritable bowel syndrome, diabetes, history of DVT, history of tobacco use (quit 6 years ago), history of GI bleeds requiring blood transfusions, and obesity. She had a cardiac catheterization completed with her director clinical applications, Dr. Jewell in [place] which revealed an EF of 55% with [...] qualifying data available. Assessment/Plan 1. CAD IN L[place] ART[place] s/p PCI 2015; s/p CABG x2 [...] DOLORES CARRILLO MD on 11/25/2021 10:42 AM [facility] [id number] Note Date of Service 11/25/2021 Chief Complaint POD #2: This is a 71-year-old female with past medical history of CAD status post PCI in 2016, hypothyroidism, hypertension, hyperlipidemia, irritable bowel syndrome, diabetes, history of DVT, history of tobacco use (quit 6 years ago), history of GI bleeds requiring blood transfusions, and obesity. She hada cardiac catheterization completed with her director clinical applications, Dr. Jewell in [place] which revealed an EF of 55% with [...] nebs. nitroprusside drip has been weaned off. [place] [facility] consulted for diabetic management. Currently on [...] murmur, positive pericardial friction rub, heart rate [id number], temporary a and V pacer wires intact; [...] post op day Assessment/Plan 1. CAD IN [place] ART[place] s/p PCI 2015; s/p CABG x2 [...] Diabetes mellitus Hgb A1c 9.7% Followed by [place] inpatient [facility]ocr[facility]. Glucoses ranging 67-154. No longer [...] by NAT DUNN on 11/25/2021 10:54 AM [facility] [id number] Note ORIGINAL EXAMINATION: ONE XRAY VIEW OF [...] Sign Date: 11/25/2021 6:55:32 AM Ordering Provider: [facility]09-10-2022 Note ORIGINAL EXAMINATION: ONE XRAY VIEW OF [...] Sign Date: 11/25/2021 6:55:32 AM Ordering Provider: [facility]09-09-2022 Note ORIGINAL EXAMINATION: ONE XRAY VIEW OF [...] 11/24/2021 10:21:41 PM Ordering Provider: POLLY PHILIPPE [facility] HospitalPnbvmcsz88-57-4926 Note Result type: Cardiothoracic Surgery Office Note Result date: November 21, 2021 14:15 EDT Result status: Auth (Verified) Result title: Office Visit Note Performed by: POLLY PHILIPPE MD on November 21, 2021 14:15 EDT Verified by: POLLY PHILIPPE MD on November 21, 2021 14:15 EDT Encounter info: [id number], [facility], Office, 11/21/2021 - 11/21/2021 Chief [...] List/Past Medical History Ongoing Bronchitis CAD IN [place] ART[place] CARDIOGENIC SHOCK CHEST PAIN IN ADULT [...] by CAROLINE Willingham on 11/24/2021 02:06 PM [facility] [id number] Endocrinology Consult note Date of Service 11/24/21 [...] She hada cardiac catheterization completed with her director clinical applications, Dr. Jewell in [place] which revealed an EF of 55% with [...] 103 mg/dL 82-115 Assessment/Plan 1. CAD IN [place] ART[place] s/p PCI 2015; s/p CABG x2 [...] She hada cardiac catheterization completed with her director clinical applications, Dr. Jewell in [place] which revealed an EF of 55% with [...] A1c goals, glycemic targets. Would benefit from extractor tender raw stock and clinical trial educator evaluation. Appreciate their input. She is [...] List/Past Medical History Ongoing Bronchitis CAD IN [place] ART[place] CARDIOGENIC SHOCK CHEST PAIN IN ADULT [...] mg= 1 tab(s), Oral, qDayAC Sore Throat Hagaman, 1 spray(s), Topical, q1h, PRN Surfak Stool [...] by CRYSTAL PRESSLEY on 11/24/2021 03:52 PM [facility] [id number] Pulmonary Consult note Date of Service 11/24/2021 History of Present Illness 71-year-old female with past medical history of CAD status post PCI in 2015, hypothyroidism, hypertension, hyperlipidemia, irritable bowel syndrome, diabetes, history of DVT, history of tobacco use (quit 6 years ago), history of GI bleeds requiring blood transfusions, and obesity. She had a cardiac catheterization completed with her director clinical applications, Dr. Jewell in [place] which revealed an EF of 55% with [...] left basilar consolidation. Assessment/Plan 1. CAD IN L[place] ARTERY s/p PCI 2015; s/p CABG x2 [...] List/Past Medical History Ongoing Bronchitis CAD IN [place] ART[place] CARDIOGENIC SHOCK CHEST PAIN IN ADULT [...] mg= 1 tab(s), Oral, qDayAC Sore Throat Hagaman, 1 spray(s), Topical, q1h, PRN Surfak Stool [...] CHRIS FRY MD on 11/24/2021 11:15 AM [facility] [id number] Note Date of Service 11/24/2021 Chief Complaint POD #1 This is a 71-year-old female with past medical history of CAD status post PCI in 2016, hypothyroidism, hypertension, hyperlipidemia, irritable bowel syndrome, diabetes, history of DVT, history of tobacco use (quit 6 years ago), history of GI bleeds requiring blood transfusions, and obesity. She hada cardiac catheterization completed with her director clinical applications, Dr. Jewell in [place] which revealed an EF of 55% with [...] pulmonary. nitroprusside drip has been weaned off. [place] [facility] consulted for diabetic management. Currently on [...] qualifying data available. Assessment/Plan 1. CAD IN L[place] ARTERY s/p PCI 2016; s/p CABG x2 [...] insulin drip at 2 units/h. Will consult [place] inpatient [facility]ocr[facility]. 4. High blood pressure Blood [...] to 40% FiO2. Consult pulmonary Plan: Consult [place] inpatient endocrinology for diabetic management Consult PT [...] by NAT DUNN on 11/24/2021 08:20 AM [facility] [id number] Note ORIGINAL EXAMINATION: ONE XRAY VIEW OF THE CHEST11/24/2021 9:56 pm COMPARISON: Chest x-ray November 23, 2021 HISTORY: ORDERING SYSTEM PROVIDED HISTORY: Reason for Exam: abnormal breath sounds FINDINGS: Median sternotomy wires with midline surgical padimni. Left chest tube again seen. Mediastinal drain [...] Sign Date: 11/24/2021 10:21:41 PM Ordering Provider: [facility]09-08-2022 Note ORIGINAL EXAMINATION: ONE XRAY VIEW [...] Date: 11/23/2021 1:40:56 PM Ordering Provider: [facility]09-08-2022 Note ORIGINAL EXAMINATION: ONE XRAY VIEW [...] with left basilar consolidation. Interpreted by: Polly Rma DO Preliminary Report By: Polly Ram DO Electronically signed By Polly Ram DO Dictated Date: 11/23/2021 1:38:02 PM Prelim Date: 11/23/2021 1:40:56 PM Sign Date: 11/23/2021 1:40:56 PM Ordering Provider: [facility]09-08-2022 Anesthesiology Consult note Patient: FELICITAS ALCANTARA [...] 15 mL, 3 Refill(s), Pharmacy: [facility] [address], 157.2, cm, 01/21/20 14:13:00EST, Height, kg, 01/21/20 14:13:00 EST, Dosing Weight nitroglycerin 0.4 mg sublingual tablet: 0.4 mg Dose = 1 tab(s), Sublingual, q5min, PRN as needed for chest pain, # 25 tab(s), 3 Refill(s), Pharmacy: [facility] [address], 157.5, cm, 08/31/19 16:27:00 EDT, Height, [...] (deep vein thrombosis) in / SNOMED CT 14866645 / Confirmed Bronchitis / SNOMED CT 80004479 / Confirmed CARDIOGENIC SHOCK / SNOMED CT 922586609 / Confirmed CHEST PAIN IN ADULT / SNOMED CT 99835832 / Confirmed CKD stage 3 / SNOMED CT 5297209892 / Confirmed CONGESTIVE HEART FAILURE, UNSPECIFIED CONGESTIVE HEART FAILURE CHRONICITY, UNSPECIFIED CONGESTIVE HEART FAILURE TYPE / SNOMED CT 11780232 / Confirmed Coronary artery disease / SNOMED CT 5342129732 / Confirmed CAD IN LOWER [place] ARTERY / SNOMED CT 7632831984 / Confirmed Diabetes mellitus / SNOMED CT 640429812 / Confirmed Dysphagia / SNOMED CT 99624022 / Confirmed FATIGUE / SNOMED CT 140935212 / Confirmed Heart attack / SNOMED CT 22090240 / Confirmed High blood pressure / SNOMED CT 75881972 / Confirmed HISTORY OF ST ELEVATION MYOCARDIAL INFARCTION (STEMI) / SNOMED CT 7498547556 / Confirmed H/O irritable bowel syndrome / SNOMED CT 2670857639 / Confirmed Former tobacco use / SNOMED CT 7093869484 / Confirmed Hyperlipemia / SNOMED CT 19887247 / Confirmed Hypertension / SNOMED CT 97933692 / Confirmed Hypothyroid / SNOMED CT 358599756 / Confirmed IBS (irritable bowel syndrome) / SNOMED CT 67487312 / Confirmed Non-compliance / SNOMED CT 7941474967 / Confirmed OBESITY / SNOMED CT 3729505878 / Confirmed Perforated ulcer / SNOMED CT 093908389 / Confirmed Polyneuropathy / SNOMED CT 07266709 / Confirmed Type 2 diabetes mellitus uncontrolled / SNOMED CT 7839114288 / Confirmed Urinary tract infection / SNOMED CT 837022003 / Confirmed VITAMIN D DEFICIENCY / SNOMED CT 76462605 / Confirmed, Active Problems (33) Bronchitis CAD IN L[place] ARTERY CARDIOGENIC SHOCK CHEST PAIN IN ADULT [...] Histories Past Medical History: Active Perforated ulcer (245307815) DVT (deep vein thrombosis) in (66781739) High blood pressure (07421256) Bronchitis (21409922) Diabetes mellitus (197834036) Urinary tract infection (293135260) Coronary artery disease (1489031424) Former tobacco use (6647598275) Comments: 04/09/2016 EST 19:51 Summer Reddy RN quit 12/2015 Family History: Cardiac pacemaker Brother COPD - Chronic obstructive pulmonary disease Sister Diabetes mellitus Sister Heart disease Brother Stroke Father ([place]) Heart attack Mother ([place]) Cancer Sister Aneurysm Father ([place]) Heart attack 14-Sep-2015 02:33:12<$> Mother ([place]) Brother Procedure history: CABG (Coronary artery bypass grafting) planned (2186210328) on 11/23/2021 at 71 Years. Cardiac catheterization (25110137) on 09/05/2021 at 70 Years. Cardiac catheterisation (668060605) on 04/10/2016 at 65 Years. Comments: 04/10/2016 5:58 LARS Rodriguez D possible PTCA Stent placement (366824863) on 01/03/2016 at 65 Years. History of hysterectomy ([id number]). Hysterectomy (355027152). H/O: tubal ligation (294343554). Histology tonsillectomy (437749406). Colonoscopy (927754787). EGD - Esophagogastroduodenoscopy (3875997072). Social History Social & Psychosocial Habits Alcohol [...] Person #2 We May Share PHI [phone] Designated Person #2 Relationship Other: sister Additional Designated Person Share PHI Kathya- daughter Privacy Restrictions Requested None Height 157.5 cm Admission Weight 102.3 kg Weight Method Actual [place] Body Weight 50.12 kg Body Mass Index [...] Loss No Safety Brochure Information Reviewed Yes [facility] Video Viewed No Barriers to Learning None evident Teaching Method Printed materials Teaching Evaluation Verbalizes/Nonverbally indicates understanding Preferred Written Language Yemeni Preferred Spoken Language Yemeni Information Given by Patient Patient's Current Physicians [...] Ready for Pickup . Assessment and Plan [place] [employer]esthesiologists (ASA) physical status classification: [...] JOHNATHON TANNER DO on 11/23/2021 08:39 AM [facility] HospitalCydssczb77-14-3752 SARS-CoV-2 (COVID-19) RNA SLOAN+probe Ql (Nph)Negative (11/17/21 12:00 PM)AO Auto Urine [id number] Evaluation note* Diagnosis Onset Date Resolution Status History of coronary artery bypass surgery November, acute Essential hypertension chron ic Hyperlipemia chronic Hypothyroidism chronic IBS (irritable bowel syndrome) chronic Type 2 diabetes mellitus chr onic History of coronary artery bypass surgery November, acute Atherosclerotic heart diseas e of [place] coronary artery without angina pectoris chronic Dyspnea on exertion chronic Essential hypertension chron ic Hyperlipemia chronic Presence of stent in coronary artery March, [facility] Work Phone: 1(231) 671-157001-01-2017 Evaluation note* Diagnosis Onset Date Resolution Status History of non-ST elevation myocardial infarction (NSTEMI) acute Essential hypertension chron ic Hyperlipemia chronic Hypothyroidism chronic Presence of stent in coronary artery March, chronic Type 2 diabetes mellitus chr [facility] Work Phone: 1(755) 138-332901-01-2017 Evaluation note* Diagnosis Onset Date Resolution Status History of non-ST elevation myocardial infarction (NSTEMI) acute Essential hypertension chron ic Hyperlipemia chronic Hypothyroidism chronic Presence of stent in coronary artery March, chronic Type 2 diabetes mellitus chr onic Dyspnea on exertion acute Atherosclerotic heart diseas e of [place] coronary artery without angina pectoris chronic Essential hypertension chron ic Hyperlipemia chronic Presence of stent in coronary artery March, [facility] Work Phone: [phone]) 998-924101-01-2017 Evaluation note* Diagnosis Onset Date Resolution Status History of non-ST elevation myocardial infarction (NSTEMI) acute Essential hypertension chron ic Hyperlipemia chronic Hypothyroidism chronic Presence of stent in coronary artery March, chronic Type 2 diabetes mellitus chr onic Atherosclerotic heart diseas e of [place] coronary artery without angina pectoris chronic Dyspnea on exertion chronic Essential hypertension chron ic Hyperlipemia chronic Presence of stent in coronary artery March, chronic Atherosclerotic heart diseas e of [place] coronary artery without angina pectoris chronic Dyspnea on exertion chronic Essential hypertension chron ic Hyperlipemia chronic Presence of stent in coronary artery March, [facility] Work Phone: Evaluation + Plan note Future Appointments Appointment Date:11/21/2021 02:00:00 PM Scheduled Provider:POLLY PHILIPPE MD Location:[facility] Appointment Type:[facility] Evaluation + Plan note Future Appointments Appointment Date:12/05/2021 10:00:00 AM Scheduled Provider:JUAN JUAREZ Location:[facility] Appointment Type:[facility] Evaluation + Plan note Future Appointments Appointment Date:12/27/2021 01:00:00 PM Scheduled Provider:JUAN JUAREZ Location:[facility] [place] Appointment Type:CTS OV Post Op Follow Up Future Scheduled Tests Laboratory* Basic Metabolic Panel 12/01/21 Radiology* XR Chest 2 Views (PA & Lateral) 12/27/21 * XR Chest 2 Views (PA & Lateral) 12/19/21 [facility] Evaluation note* Diagnosis Onset Date Resolution Status Atherosclerotic heart diseas e of [place] coronary artery without angina pectoris chronic Dyspnea on exertion chronic Essential hypertension chron ic Hyperlipemia chronic Presence of stent in coronary artery March, chronic [facility] Work Phone: Evaluation note* Diagnosis Onset Date Resolution Status Atherosclerotic heart diseas e of [place] coronary artery without angina pectoris chronic Dyspnea on exertion chronic Essential hypertension chron ic Hyperlipemia chronic History of coronary artery bypass surgery November, 022 acute Atherosclerotic heart diseas e of [place] coronary artery without angina pectoris chronic Essential hypertension chron ic Hyperlipemia chronic Hypothyroidism chronic IBS (irritable bowel syndrome) chronic Presence of stent in coronary artery March, chronic Type 2 diabetes mellitus chr onic [facility] Work Phone: History and physical note* CAROLINE Chandler: PERFORM, MODIFY Event Display: History and Physical Update Authored Date: [facility] Hospital course Narrative No data available for this section [facility] Hospital Discharge instructions No data available for this section [facility] Hospital Discharge instructions Additional Instructions Apply cream as prescribed and return for any worsening of symptoms.[facility] Work Phone: Progress note No data available for this section [facility] Rita Summary Purpose Family History No Family [...] Will No April 25 12:33pm Power of Pre Billing Specialist No April 25, 2021 12:33pm Advance Directive Response Recorded Date/ Time Advance Directives No September 05 7:52am Living Will No September 05, 2021 7:52am Power of Pre Billing Specialist No September 05 7:52am Advance Directive Response Recorded Date/ Time Advance Directives No September 05 7:52am Living Will No September 08, 2021 12:28pm Power of Pre Billing Specialist No September 08 12:28pm Advance Directive Response Recorded Date/ Time Advance Directives No September 05 7:52am Living Will No November 05 2:17am Power of Pre Billing Specialist No November 05 022 2:17am Advance Directive Response Recorded Date/ Time Advance Directives No September 05 6:52am Living Will No January 21 3:59pm Power of Pre Billing Specialist No January 21, 2022 3:59pm Advance Directive Response Recorded Date/ Time Advance Directives No September 05 7:52am Living Will No January 21 4:59pm Power of Pre Billing Specialist No January 21, 2022 4:59pm Advance Directive Response Recorded Date/ Time Advance Directives No September 05 7:52am Living Will No July 28, 2022 1 :12pm Power of Pre Billing Specialist No July 28, 2022 1:12pm Advance Directive Response Recorded Date/ Time Living Will No January 14 1:05pm Do you have a Healthcare Power of Pre Billing Specialist? No January 15, 2024 1:05pm Living Will No April 29, 2 025 10:02pm Do you have a Healthcare Power of Pre Billing Specialist? 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 Dyspnea on [...] 2 diabetes mellitus 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 Dyspnea on exertion Essential hypertension Hyperlipemia Presence of stent in coronary artery 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 Dyspnea on exertion Essential hypertension Hyperlipemia Presence of stent in coronary artery Chief Complaint SOB, HX OF CAD *MOOD ISPAW* SOB, HX OF CAD *MOODISPAW* DYSPNEA DYSPNEA Update H&P for cath 09/05 [facility] CORONA/ ABN STRESS CORONA/ ABN STRESS headache, chills CHEST PAIN Reason for Visit Atherosclerotic hear t disease of gray[place] coronary artery without angina pectoris Dyspnea on [...] artery bypass surgery 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 Dyspnea on [...] artery bypass surgery 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 Dyspnea on exertion Essential hypertension Hyperlipemia Presence of stent in coronary artery Chief Complaint 3 M FU 4 M FU Reason for Visit Atherosclerotic hear t disease of gray[place] coronary artery without angina pectoris Dyspnea on exertion Essential hypertension Hyperlipemia History of coronary artery bypass surgery 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 Essential hypertension Hyperlipemia Hypothyroidism IBS (irritable bowel syndrome) Presence of stent in coronary artery Type 2 diabetes mellitus Chief Complaint 3 M FU 4 M FU HEADACHE, RASH Reason for Visit Atherosclerotic hear t disease of gray[place] coronary artery without angina pectoris Dyspnea on exertion Essential hypertension Hyperlipemia History of coronary artery bypass surgery 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 Essential hypertension [...] 12: 52pm Atherosclerotic heart diseas e of gray[place] coronary artery without angina pectoris July 02, 2024 12:52pm Essential hypertension July 02, 2024 12:52pm Hyperlipemia July 02, 2024 12: 52pm Hypothyroidism July 02, 2024 12: 52pm Type 2 diabetes mellitus July 02 12:52pm Chest pain July 02, 2024 12: 52pm Additional Source Comments INFORMATION SOURCE (unrecogn ized section and content) DATE CREATED AUTHOR 09/11/2017 [employer] DATE CREATED AUTHOR AUTHOR'S ORGANIZ ATION 12/28/2021 [employer] ([place]) DATE CREATED AUTHOR AUTHOR'S [...] Physician - Cardiothoracic Surgery Address: Address: [address] [place] [address] [address] [facility] [place] [address]- [place] Name: HARISH NOEL MD Member Role: Primary Care Physician Address: Address: [address] [place] [address] [place] [address]- Name: FORREST JEWELL MD Address: Address: [address] [address]- Care Team Related Persons Name: KATHERINE HOFFMANN Name: TIARRA KATHYA Care Team Personnel Name: POLLY PHILIPPE MD Position: P4 Physician - Cardiothoracic Surgery Med Service: Active Provider Member Role: Cardiothoracic Surgeon Address: Address: [address] [place] [address] [facility] [address] [facility] [place] [id number]- [place] Name: HARISH NOEL MD Member Role: Primary Care Physician Address: Address: [address] [place] [address]- Name: FORREST JEWELL MD Member Role: Hand Cementer Address: Address: [address] [place] [id number]- Care Team Related Persons Name: CHRISTINE MOSS Name: KATHERINE HOFFMANN Name: TIARRA KATHYA Care Team Personnel Name: POLLY PHILIPPE MD Position: P4 Physician - Cardiothoracic Surgery Med Service: Active Provider Member Role: Cardiothoracic Surgeon Address: Address: [address] [place] [address] [address] [facility] [place] [id number]- Name: HARISH NOEL MD Member Role: Primary Care Physician Address: Address: [address] [place] [address]- Name: FORREST JEWELL MD Member Role: Hand Cementer Address: Address: [facility] [address] [place] [address]- [place] Care Team Related Persons Name: CHRISTINE MOSS Name: KATHERINE HOFFMANN Name: TIARRA KATHYA Care Team Personnel Name: POLLY PHILIPPE MD Position: P4 Physician - Cardiothoracic Surgery Med Service: Active Provider Member Role: Cardiothoracic Surgeon Address: Address: [address] [place] [address] [facility] [address] [facility] [place] [id number]- Name: HARISH NOEL MD Member Role: Primary Care Physician Address: Address: [address] [place] [address] [address] [place] [address]- Name: FORREST JEWELL MD Member Role: Hand Cementer Address: Address: [address] [facility] [address] [place] [address]- [place] Care Team Related Persons Name: CHRISTINE [...] Provider, Referri ng Provider Active Rustam Francois ERISA ATTORNEY, ERISA ATTORNEY-C Attending Provider Active Team Status: Inactive Member Role Status Dates Dr. Harish Noel MD Primary Care Provider Active Rustam Francois ERISA ATTORNEY, ERISA ATTORNEY-C Attending Provider, Referring Pro vider Active Team [...] BE BASED ON THE PRIMARY CLINICAL RECORDS. [facility]. provides no warranty or guarantee of the accuracy or completeness of information in this document.
--- OUTSIDE RECORDS SUMMARY | 2024-09-07 03:26 | XMS RPT_ITS | CCD ---
Author Organization [facility] CliniSyga Care Team Providers Care Churn Operator Name Role Phone VON ABARCA Unavailable Unavailable SAADIA HERNANDEZ Unavailable Unavailable SAADIA HERNANDEZ Unavailable Unavailable Dr. Harish Noel Primary Care Provider Dr. Harish Noel Attending Provider [phone] Dr. Harish Noel Referring Provider Roof END LATHE OPERATOR, END LATHE OPERATOR-C Rustam Garza Attending Provider Roof END LATHE OPERATOR, END LATHE OPERATOR-C Rustam Garza Referring Provider Roof END LATHE OPERATOR, END LATHE OPERATOR-C Rustam Garza Other Provider [phone]([facility])[phone] Forrest Jewell Attending Provider Dr. Jose Cotton Attending Provider Dr. Forrest Jewell Referring Provider Dr. Forrest Jewell Other Provider [phone]([facility])[phone] Harish Noel Primary Care Provider Dr. Harish Noel Referring Provider [phone]([facility])[phone] Roof END LATHE OPERATOR, END LATHE OPERATOR-C Rustam Garza Attending Provider HARISH NOEL MD Primary Care Physician BERT DAY, HARISH Primary Care Unavailable ANTWAN HESTER Attending Unavailable POLLY PHILIPPE MD Attending Unavailable BERT DAY, HARISH Primary Care Unavailable NAN CASE, MSIsabelle MARTINEZ Attending Natalie NOEL MD., HARISH Primary Care Unavailable ANN CASE, MSIsabelle MARTINEZ Attending Natalie NOEL MD., HARISH Primary Care Unavailable POLLY PHILIPPE MD Attending Unavailable BERT DAY, HARISH Primary Care Unavailable POLLY PHILIPPE MD Attending Unavailable BERT DAY, [facility] Primary Care Unavailable JOSE MARTIN MCARTHUR, POLLY Suggs Admitting Unavailable JOSE MARTIN MCARTHUR, POLLY Suggs Consulting Unavailable GERARDO MCARTHUR, DOLORES Consulting Unavailable JASMYN MCARTHUR, NIHAD Consulting Unavailable SAMUEL MANRIQUEZ MD, CHRIS Consulting Unavailable KELLEE MCARTHUR, GAGE Consulting Unavailanish PHILIPPE MD, POLLY Suggs Attending Unavailable BERT MCARTHUR., [facility] Primary Care Unavailable Dr. Harish Noel Primary Care Provider Aminah Prado Attending Provider Unavailable Dr. Harish Noel Attending Provider [phone] Dr. Harish Noel Referring Provider [phone] Roof END LATHE OPERATOR, END LATHE OPERATOR-C Rustam Garza Attending Provider Jairo Vogel Attending Provider Unavailable Dr. Harish Noel Primary Care Provider Aminah Prado Attending Provider Unavailable Dr. Harish Noel Attending Provider [phone] Dr. Harish Noel Referring Provider [phone] Roof END LATHE OPERATOR, END LATHE OPERATOR-C Rustam Garza Attending Provider Jairo Vogel Attending Provider Unavailable Dr. Harish Noel Primary Care Provider Dr. Hairsh Noel Referring Provider [phone] Roof END LATHE OPERATOR, END LATHE OPERATOR-C Rustam Garza Attending Provider Dr. Harish [...] [alogliptin] Drug Allergy 06-17-19 22 Weal (disorder) [facility] (15 sources) Aspirin; Translations: [aspirin] Drug Allergy 06-17-19 22 blood clots [facility] (11 sources) canagliflozin Drug Allergy 06-17-19 22 abdominal pain [facility] (11 sources) dulaglutide Drug Allergy 06-17-19 22 [facility] (15 sources) glipiZIDE; Translations: [glipizide] Drug Allergy 06-17-19 22 [facility] (14 sources) levothyroxine; Translations: [levothyroxine] Drug Allergy 06-17-19 Eruption of skin (disorder), Diarrhea (finding) [facility] (15 sources) metFORMIN; Translations: [metformin] Drug Allergy 06-17-19 Hives, Diarrhea [facility] (12 sources) Penicillins; Translations: [Penicillins] Allergy to substance 06-17-19 Hives [facility] (4 sources) canagliflozin; Translations: [canagliflozin] Drug Allergy Stomach Pains, Diarrhea [facility] (4 sources) dulaglutide; Translations: [dulaglutide] Drug Allergy [facility] (4 sources) HMG-CoA reductase inhibitor; Translations: [statins] Drug allergy [facility] (4 sources) Penicillin; Translations: [penicillins] Drug Allergy [facility] (1 source) alogliptin Drug Allergy 07-03-19 [facility] (1 source) Aspirin Drug Allergy 07-03-19 [facility] (1 source) canagliflozin Drug Allergy 07-03-19 [facility] (1 source) dulaglutide Drug Allergy 07-03-19 [facility] (1 source) glipiZIDE Drug Allergy 07-03-19 [facility] (1 source) metFORMIN Drug Allergy 07-03-19 [facility] Medications Current Medications Medication Drug Class(es) [...] 15 mL, 3 Refill(s), [facility]: [facility], 157.2, cm, 01/21/20 14:13:00 EST, Height, [...] # 25 tab(s), 3 Refill(s), Pharmacy: [facility] [address], 157.5, cm, 08/31/19 16:27:00 EDT, Height, [...] 0 Refill(s) Start Date: 11/29/21 Status: Ordered [id number] 200 actuat albuterol 0.09 mg/actuat metered dose [...] 2020 1:00am May 11, 2020 12:16pm thyroid (fdc) 60 mg oral tablet (18 sources) Start: 06-16-2021 End: 05-16-2022 take 1 tablet by mouth once daily Thyroid (Pork) ([place] Thyroid) 60 mg tablet Discontinued 60 mg [...] source) I25.10 - Atherosclerotic heart disease of [place] coronary artery without angina pectoris,R07.9 - Chest [...] Urea nitrogen/Creatinine [Mass ratio] 18.8 mg/mg - [facility] Bilirubin, totalOrdered By: Harish Noel on 07-16-2024 Bilirubin [Mass/Vol] 0.73 mg/dL 0.00-1.30 [facility] Carbon dioxide, total [Moles /volume] in Central venous bloodOrdered By: Harish Noel on 07-16-2024 CO2 [Moles/Vol] 26.7 mmol/L 21.0-32.0 [facility] Chloride assayOrdered By: Madison Noel on 07-16-2024 Chloride [Moles/Vol] 97 mmol/L Low 98-108 [facility] Comprehensive Metabolic Prof ilon 07-16-2024 Albumin [Mass/Vol] 3.8 g/dL Normal 3.4-4.8 [facility] Comment on above: Performed By: #### L 501.9985, L501.48356, L500.4050, L501.9520, L503.0106, L501.5200, L506.1001, L506.0400 ####[facility] [address] [place], [address] Albumin/Globulin [Mass ratio] 1.2 {ratio} Normal 0.9-2.4 [facility] Comment on above: Performed By: #### L 501.9985, L501.19756, L500.4050, L501.9520, L503.0106, L501.5200, L506.1001, L506.0400 ####[facility] [address] [place], [address] ALK PHOS 94 U/L Normal 35-104 [facility] Comment on above: Performed By: #### L 501.9985, L501.66967, L500.4050, L501.9520, L503.0106, L501.5200, L506.1001, L506.0400 ####[facility] [address] [place], [address] ALT [Catalytic activity/Vol] 12 U/L Normal <=34 [facility] Comment on above: Performed By: #### L 501.9985, L501.14197, L500.4050, L501.9520, L503.0106, L501.5200, L506.1001, L506.0400 ####[facility] [address] [place], [address] AST [Catalytic activity/Vol] 16 U/L Normal <=31 [facility] Comment on above: Performed By: #### L 501.9985, L501.73730, L500.4050, L501.9520, L503.0106, L501.5200, L506.1001, L506.0400 ####[facility] [address] [place], [address] Bilirubin [Mass/Vol] 0.73 mg/dL Normal 0.00-1.30 [facility] Comment on above: Performed By: #### L 501.9985, L501.74645, L500.4050, L501.9520, L503.0106, L501.5200, L506.1001, L506.0400 ####[facility] [address] [place], [address] BUN/CRE 18.8 RATIO Normal 10-20 [facility] Comment on above: Performed By: #### L 501.9985, L501.75267, L500.4050, L501.9520, L503.0106, L501.5200, L506.1001, L506.0400 ####[facility] [address] [place], [address] Calcium [Mass/Vol] 9.1 mg/dL Normal 7.6-11.0 [facility] Comment on above: Performed By: #### L 501.9985, L501.65572, L500.4050, L501.9520, L503.0106, L501.5200, L506.1001, L506.0400 ####[facility] [address] [place], [address] Chloride [Moles/Vol] 97 mmol/L Low 98-108 [facility] Comment on above: Performed By: #### L 501.9985, L501.28762, L500.4050, L501.9520, L503.0106, L501.5200, L506.1001, L506.0400 ####[facility] [address] [place], [address] CO2 [Moles/Vol] 26.7 mmol/L Normal 21.0-32.0 [facility] Comment on above: Performed By: #### L 501.9985, L501.68556, L500.4050, L501.9520, L503.0106, L501.5200, L506.1001, L506.0400 ####[facility] [address] [place], [address] Creatinine [Mass/Vol] 0.84 mg/dL Normal 0.70-1.[address] [facility] Comment on above: Performed By: #### L 501.9985, L501.59600, L500.4050, L501.9520, L503.0106, L501.5200, L506.1001, L506.0400 ####[facility] [address] [place], [address] GAP 11 Normal 5-15 [facility] Comment on above: Performed By: #### L 501.9985, L501.66020, L500.4050, L501.9520, L503.0106, L501.5200, L506.1001, L506.0400 ####[facility] [address], [address] GFR/1.73 sq M.predicted among non-blacks MDRD (S/P/Bld) [Vol rate/Area] 74 mL/min/{1.73_m2} Normal >60 [facility] Comment on above: Result Comment: mL/m in/1.73m2 CKD-EPI Creatinine Equation (2020) Performed By: #### L 501.9985, L501.58129, L500.4050, L501.9520, L503.0106, L501.5200, L506.1001, L506.0400 ####[facility] [address] [place], [address] Globulin (S) [Mass/Vol] 3.3 g/dL Normal 2.2-4.2 [facility] Comment on above: Performed By: #### L 501.9985, L501.31491, L500.4050, L501.9520, L503.0106, L501.5200, L506.1001, L506.0400 ####[facility] [address] [place], [address] Glucose [Mass/Vol] 253 mg/dL High 70-99 [facility] Comment on above: Performed By: #### L 501.9985, L501.97755, L500.4050, L501.9520, L503.0106, L501.5200, L506.1001, L506.0400 ####[facility] [address] [place], [address] Potassium [Moles/Vol] 4.5 mmol/L Normal 3.3-5.[address] [facility] Comment on above: Performed By: #### L 501.9985, L501.18211, L500.4050, L501.9520, L503.0106, L501.5200, L506.1001, L506.0400 ####[facility] [address] [place], [address] Sodium [Moles/Vol] 134 mmol/L Normal 133-145 [facility] Comment on above: Performed By: #### L 501.9985, L501.14963, L500.4050, L501.9520, L503.0106, L501.5200, L506.1001, L506.0400 ####[facility] [address] [place], [address] T PROT 7.1 g/dL Normal 5.9-8.4 [facility] Comment on above: Performed By: #### L 501.9985, L501.35214, L500.4050, L501.9520, L503.0106, L501.5200, L506.1001, L506.0400 ####[facility] [address] [place], [place], [id number] Urea nitrogen [Mass/Vol] 16 mg/dL Normal 4-19 [facility] Comment on above: Performed By: #### L 501.9985, L501.64580, L500.4050, L501.9520, L503.0106, L501.5200, L506.1001, L506.0400 ####[facility] [address] [place], [address] Free T3on 07-16-2024 Free T3 [Mass/Vol] 2.8 pg/mL Normal 2.18-3.98 [facility] Comment on above: Performed By: #### L 501.9985, L501.52501, L500.4050, L501.9520, L503.0106, L501.5200, L506.1001, L506.0400 ####[facility] [address] [place], [place], [id number] Free I7Dcwjcyl By: Harish garza on 07-16-2024 Free Triiodothyronine (T3) pg/dL 2.8 pg/mL 2.18-3.98 [facility] GFR/1.73 sq M.predicted domenico g non-blacks MDRD (S/P/Bld) [Vol rate/Area]Ordered By: Harish Noel on 07-16-2024 Estimated GFR (MDRD) Non-Af Amer 74 >60 [facility] Comment on above: mL/min/1.73m2 CKD-EP I Creatinine Equation (2020) Hemoglobin A1con 07-16-2024 HbA1c (Bld) [Mass fraction] 9.6 % High <=5.6 [facility] Comment on above: Result Comment: Norm al < 5.7 % Prediabetic 5.7 - 6.4 % Diabetic >or= 6.5 % Please note range changes. Performed By: #### L 501.9985, L501.52566, L500.4050, L501.9520, L503.0106, L501.5200, L506.1001, L506.0400 #### [facility] [address] [place], [place], [address] Hemoglobin A1c percentageOrd ered By: Harish Noel on 07-16-2024 HbA1c (Bld) [Mass fraction] 9.6 % High <5.7 [facility] Comment on above: Normal < 5.7 % Predi abetic 5.7 - 6.4 % Diabetic >or= 6.5 % Please note range changes. Laboratory - Chemistry and C hemistry - challengeOrdered By: Harish Noel on 07-16-2024 AST [Catalytic activity/Vol] 16 U/L <32 [facility] Magnesiumon 07-16-2024 Magnesium [Mass/Vol] 2.0 mg/dL Normal 1.5-2.2 [facility] Comment on above: Performed By: #### L 501.9985, L501.49476, L500.4050, L501.9520, L503.0106, L501.5200, L506.1001, L506.0400 ####[facility] [address] [place], [place], [address] Magnesium (Unsp spec) [Mass/ Vol]Ordered By: Harish Noel on 07-16-2024 Magnesium [Mass/Vol] 2.0 mg/dL 1.5-2.2 [facility] Potassium (Unsp spec) [Mass/ Vol]Ordered By: Harish Noel on 07-16-2024 Potassium [Moles/Vol] 4.5 mmol/L 3.3-5.[address] [facility] Serum creatinine measurement (mass/volume)Ordered By: Harish Noel on 07-16-2024 Creatinine [Mass/Vol] 0.84 mg/dL 0.70-1.[address] [facility] Serum globulin measurementOr dered By: Harish Noel on 07-16-2024 Globulin (S) [Mass/Vol] 3.3 g/dL 2.2-4.2 [facility] Serum glucose measurement (m ass/volume)Ordered By: Harish Noel on 07-16-2024 Glucose [Mass/Vol] 253 mg/dL High 70-99 [facility] Serum or plasma alanine nova otransferase (ALT) measurementOrdered By: Harish Noel on 07-16-2024 ALT [Catalytic activity/Vol] 12 U/L <35 [facility] Serum or plasma albumin betsy urement (mass/volume)Ordered By: Harish Noel on 07-16-2024 Albumin [Mass/Vol] 3.8 g/dL 3.4-4.8 [facility] Serum or plasma albumin/glob ulin mass ratioOrdered By: Harish Noel on 07-16-2024 Albumin/Globulin [Mass ratio] 1.2 {ratio} 0.9-2.4 [facility] Serum or plasma alkaline maritza sphatase measurementOrdered By: Harish Noel on 07-16-2024 ALP [Catalytic activity/Vol] 94 U/L 35-104 [facility] Serum or plasma calcium betsy urement (mass/volume)Ordered By: Harish Noel on 07-16-2024 Calcium [Mass/Vol] 9.1 mg/dL 7.6-11.0 [facility] Serum or plasma urea nitroge n measurement (mass/volume)Ordered By: Harish Noel on 07-16-2024 Urea nitrogen [Mass/Vol] 16 mg/dL 4-19 [facility] Sodium levelOrdered By: Ida Noel on 07-16-2024 Sodium [Moles/Vol] 134 mmol/L 133-145 [facility] T4 Free Directon 07-16-2024 T4 FREE DIRECT 0.90 ng/dL Normal 0.76-1.46 [facility] Comment on above: Performed By: #### L 501.9907, L501.87596, L500.4050, L501.9520, L503.0106, L501.5200, L506.1001, L506.0400 ####[facility] [address] [place], [address] T4 freeOrdered By: Harish garza on 07-16-2024 Free T4 [Mass/Vol] 0.90 ng/dL 0.76-1.46 [facility] TSH DL <= 0.005 mIU/L QnOrde red By: Harish Noel on 07-16-2024 Thyroid Stimulating Hormone (TSH) 8.170 uIU/mL High 0.300-4.200 [facility] Thyroid Stim Hormone (TSH)on 07-16-2024 TSH 8.170 uIU/mL High 0.300-4.200 [facility] Comment on above: Performed By: #### L 501.9985, L501.02495, L500.4050, L501.9520, L503.0106, L501.5200, L506.1001, L506.0400 ####[facility] [address] [place], [place], [id number] Total proteinOrdered By: Sharon Noel on 07-16-2024 Protein [Mass/Vol] 7.1 g/dL 5.9-8.4 [facility] Vitamin B12on 07-16-2024 Cobalamin (Vitamin B12) [Mass/Vol] 193 pg/mL Normal 180-914 [facility] Comment on above: Performed By: #### L 501.9985, L501.94018, L500.4050, L501.9520, L503.0106, L501.5200, L506.1001, L506.0400 ####[facility] [address] [place], [place], [id number] Vitamin B12 ser/plasOrdered By: Harish Noel on 07-16-2024 Cobalamin (Vitamin B12) [Mass/Vol] 193 pg/mL 180-914 [facility] Vitamin D, 25-hydroxyOrdered By: Harish Noel on 07-16-2024 Vitamin D 25-Hydroxy 12.9 ng/mL Low 30-100 [facility] Comment on above: Vitamin D StatusDefi ciency: <20 ng/mL (50nmol/L)Insufficiency: 20-30 ng/mL (50-75 nmol/L)Sufficiency: 30-100 ng/mL (75-250 nmol/L)Toxicity: >100 ng/mL (>250 nmol/L) Vitamin D,25 Hydroxyon 07-16 Vitamin D 25-OH 12.9 ng/mL Low 30-100 [facility] Comment on above: Result Comment: Lucy min D Status Deficiency: <20 ng/mL (50nmol/L) Insufficiency: 20-30 ng/mL (50-75 nmol/L) Sufficiency: 30-100 ng/mL (75-250 nmol/L) Toxicity: >100 ng/mL (>250 nmol/L) Performed By: #### L 501.9985, L501.75174, L500.4050, L501.9520, L503.0106, L501.5200, L506.1001, L506.0400 ####[facility] [address] [place], [address] MR/BMSLIBORIOBon 07-02-2024 MR/BMS.Supriya [facility] [address] [place] [address] OFFICE VISIT Date of Service: 07/02/24 MR#: [id number] Acct: [id number] Name: FELICITAS ALCANTARA Rep #: [id number] : 1950 Provider: Dr. 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 She is intolerant to 5 major classes [...] more test (more content not included)... Normal [facility] 12 Lead EKGon 04-30-2024 12 Lead EKG [facility] Services [address] [place] [address] 12 Lead EKG 04/29/24 2253 MR#: [id number] Acct: [id number] Name: FELICITAS ALCANTARA Rep #: [id number] : 1950 73 From: Delgado Cruz MD Attending Dr: Dr. Nathan Torres, DO Status: DIS RUBINA Ordering Dr: Polly Lomeli DO Date: 04/30/24 [facility] Sex: F C Admitted: 04/29/24 Test Reason [...] IS UNCONFIRMED Confirmed by ANTHONY MCARTHUR, ADELA ([id number]), slot editor ALLA LAINEZ ([id number]) on 05/01/2024 1:04:57 PM Referred By: Sly Blanco Confirmed By: ADELA CRUZ MD 05/01/24 1304 Date Delgado Cruz MD CC: Dr. Polly Lomeli DO; Dr. Nathan Torres DO; Dr. Harish Noel MD; Dr. Sly Blanco DO Signed Normal [facility] Absolute neutrophil countOrd ered By: Polly Herr on 04-30-2024 Neutrophils (Bld) [#/Vol] 16.1 10*3/uL High 2.0-7.7 [facility] Albumin to globulin ratioOrd ered By: Polly Herr on 04-30-2024 Albumin/Globulin [Mass ratio] 0.8 {ratio} Low 0.9-2.4 [facility] Automated blood erythrocyte countOrdered By: Polly Herr on 04-30-2024 RBC (Bld) [#/Vol] 5.60 10*6/uL High 4.2-5.4 [facility] Comment on above: Performed By: #### L 501.5200, L501.2300, L500.4050, L100.0100 ####[facility] [address] [place], [place], [address] Automated blood hematocrit ( percentage)Ordered By: Polly Herr on 04-30-2024 Hematocrit (Bld) [Volume fraction] 49.8 % High 37-47 [facility] Comment on above: Performed By: #### L 501.5200, L501.2300, L500.4050, L100.0100 ####[facility] [address] [place], [address] Automated lymphocyte count a s percentage of total leukocytesOrdered By: Polly Herr on 04-30-2024 Lymphocytes/100 WBC (Bld) 7.1 % Low 19-41 [facility] Comment on above: Performed By: #### L 501.5200, L501.2300, L500.4050, L100.0100 ####[facility] [address] [place], [address] Basophil percentageOrdered B y: Polly Herr on 04-30-2024 Basophils/100 WBC (Bld) 0.6 % Normal 0-1 [facility] Comment on above: Performed By: #### L 501.5200, L501.2300, L500.4050, L100.0100 ####[facility] [address] [place], [address] Bedside Glucoseon 04-30-2024 FINGERSTICK GLU 307 mg/dL High 74-106 [facility] Comment on above: Result Comment: RIMMA GEMENT OF PATIENT CARE PER NURSING PROTOCOL Performed By: #### L 100.0100, L500.2500, L300.8000, L501.4020 #### [facility] [address] [place], [address] FINGERSTICK GLU 399 mg/dL High 74-106 [facility] Comment on above: Result Comment: RIMMA GEMENT OF PATIENT CARE PER NURSING PROTOCOL Performed By: #### L 501.080 ####[facility] [address] [place], [address] FINGERSTICK GLU 404 mg/dL High 74-106 [facility] Comment on above: Result Comment: RIMMA GEMENT OF PATIENT CARE PER NURSING PROTOCOL Performed By: #### L 100.0100, L500.2500, L300.8000, L501.4020 #### [facility] [address] [place], [address] FINGERSTICK GLU 365 mg/dL High 74-106 [facility] Comment on above: Result Comment: RIMMA GEMENT OF PATIENT CARE PER NURSING PROTOCOL Performed By: #### L 100.0100, L500.2500, L300.8000, L501.4020 #### [facility] [address] [place], [address] FINGERSTICK GLU 245 mg/dL High 74-106 [facility] Comment on above: Result Comment: RIMMA GEMENT OF PATIENT CARE PER NURSING PROTOCOL Performed By: #### L 100.0100, L500.2500, L300.8000, L501.4020 #### [facility] [address] [place], [address] Bilirubin, totalOrdered By: Polly Herr on 04-30-2024 Bilirubin [Mass/Vol] 1.10 mg/dL High 0.20-1.00 [facility] Comment on above: For patients on eltr ombopag therapy, use of Dimension [place] TBIL is not recommended. Blood urea nitrogen (BUN)/cr eatinine ratioOrdered By: Polly Herr on 04-30-2024 Urea nitrogen/Creatinine [Mass ratio] 17.6 mg/mg 10-20 [facility] CBC W/Diff, Automatedon 04-18 Absolute Lymph 1.26 X10 3/uL Normal 0.83-4.51 [facility] Comment on above: Performed By: #### L 501.5200, L501.2300, L500.4050, L100.0100 ####[facility] [address] [place], [address] Absolute Neut 16.1 X10 3/uL High 2.0-7.7 [facility] Comment on above: Performed By: #### L 501.5200, L501.2300, L500.4050, L100.0100 ####[facility] [address] [place], [address] IG% 1.200 High 0.0-0.9 [facility] Comment on above: Result Comment: IG% - Immature Granulocytes (promyelocytes, myelocytes and metamyelocytes) > 1% indicates that a LEFT SHIFT is Present. Performed By: #### L 501.5200, L501.2300, L500.4050, L100.0100 ####[facility] [address] [place], [address] Nucleated RBC (Bld) [#/Vol] 0 10*3/uL Normal 0-5 [facility] Comment on above: Performed By: #### L 501.5200, L501.2300, L500.4050, L100.0100 ####[facility] [address] [place], [address] RDW SD 43.2 fl Normal 35.1-43.9 [facility] Comment on above: Performed By: #### L 501.5200, L501.2300, L500.4050, L100.0100 ####[facility] [address] [place], [address] Carbon dioxide measurementOr dered By: Polly Herr on 04-30-2024 CO2 [Moles/Vol] 25.0 mmol/L 21.0-32.0 [facility] Chloride measurementOrdered By: Polly Herr on 04-30-2024 Chloride [Moles/Vol] 100 mmol/L 98-107 [facility] Comprehensive Metabolic Prof ilon 04-30-2024 Albumin [Mass/Vol] 3.8 g/dL Normal 3.2-5.0 [facility] Comment on above: Performed By: #### L 501.5200, L501.2300, L500.4050, L100.0100 ####[facility] [address] [place], [address] Albumin/Globulin [Mass ratio] 0.8 {ratio} Low 0.9-2.4 [facility] Comment on above: Performed By: #### L 501.5200, L501.2300, L500.4050, L100.0100 ####[facility] [address] [place], [address] ALK P 116 U/L Normal 45-117 [facility] Comment on above: Performed By: #### L 501.5200, L501.2300, L500.4050, L100.0100 ####[facility] [address] [place], [address] ALT [Catalytic activity/Vol] 19 U/L Normal 13-56 [facility] Comment on above: Performed By: #### L 501.5200, L501.2300, L500.4050, L100.0100 ####[facility] [address] [place], [address] AST [Catalytic activity/Vol] 15 U/L Normal 15-37 [facility] Comment on above: Performed By: #### L 501.5200, L501.2300, L500.4050, L100.0100 ####[facility] [address] [place], [address] Bilirubin [Mass/Vol] 1.10 mg/dL High 0.20-1.00 [facility] Comment on above: Result Comment: For patients on eltrombopag therapy, use of Dimension [place] TBIL is not recommended. Performed By: #### L 501.5200, L501.2300, L500.4050, L100.0100 ####[facility] [address] [place], [address] BUN/CRE 17.6 RATIO Normal 10-20 [facility] Comment on above: Performed By: #### L 501.5200, L501.2300, L500.4050, L100.0100 ####[facility] [address] [place], [address] CA,Total 10.4 mg/dL High 8.5-10.1 [facility] Comment on above: Performed By: #### L 501.5200, L501.2300, L500.4050, L100.0100 ####[facility] [address] [place], [address] Chloride [Moles/Vol] 100 mmol/L Normal 98-107 [facility] Comment on above: Performed By: #### L 501.5200, L501.2300, L500.4050, L100.0100 ####[facility] [address] [place], [address] CO2 [Moles/Vol] 25.0 mmol/L Normal 21.0-32.0 [facility] Comment on above: Performed By: #### L 501.5200, L501.2300, L500.4050, L100.0100 ####[facility] [address] [place], [address] Creatinine [Mass/Vol] 1.08 mg/dL High 0.55-1.[address] [facility] Comment on above: Result Comment: The validity of the calculated GFR GFRAA in patients over 70 years has not been determined. Clinical correlation is essential. Performed By: #### L 501.5200, L501.2300, L500.4050, L100.0100 ####[facility] [address] [place], [address] ECRCL 52.31 ml/min Normal [facility] Comment on above: Performed By: #### L 501.5200, L501.2300, L500.4050, L100.0100 ####[facility] [address] [place], [address] EST GFR - AA 64 mL/min Normal >60 [facility] Comment on above: Result Comment: Afri can [place] GFR Calc Performed By: #### L 501.5200, L501.2300, L500.4050, L100.0100 ####[facility] [address] [place], [address] GAP 13 Normal 5-15 [facility] Comment on above: Performed By: #### L 501.5200, L501.2300, L500.4050, L100.0100 ####[facility] [address] [place], [address] GFR/1.73 sq M.predicted among non-blacks MDRD (S/P/Bld) [Vol rate/Area] 53 mL/min/{1.73_m2} Low >60 [facility] Comment on above: Result Comment: Non- GFR Calc Performed By: #### L 501.5200, L501.2300, L500.4050, L100.0100 ####[facility] [address] [place], [address] Globulin (S) [Mass/Vol] 4.6 g/dL High 2.2-4.2 [facility] Comment on above: Performed By: #### L 501.5200, L501.2300, L500.4050, L100.0100 ####[facility] [address] [place], [address] Glucose [Mass/Vol] 352 mg/dL High 74-106 [facility] Comment on above: Result Comment: Gluc ose result greater than or equal to 200 mg/dL suggests DIABETES MELLITUS per A.D.A. criteria. Performed By: #### L 501.5200, L501.2300, L500.4050, L100.0100 ####[facility] [address] [place], [address] Potassium [Moles/Vol] 4.4 mmol/L Normal 3.5-5.[address] [facility] Comment on above: Performed By: #### L 501.5200, L501.2300, L500.4050, L100.0100 ####[facility] [address] [place], [address] Sodium [Moles/Vol] 137 mmol/L Normal 136-145 [facility] Comment on above: Performed By: #### L 501.5200, L501.2300, L500.4050, L100.0100 ####[facility] [address] [place], [address] T PROT 8.4 g/dL High 6.4-8.2 [facility] Comment on above: Performed By: #### L 501.5200, L501.2300, L500.4050, L100.0100 ####[facility] [address] [place], [address] Urea nitrogen [Mass/Vol] 19 mg/dL High 7-18 [facility] Comment on above: Performed By: #### L 501.5200, L501.2300, L500.4050, L100.0100 ####[facility] [address] [place], [address] Eosinophil percentageOrdered By: Polly Herr on 04-30-2024 Eosinophils/100 WBC (Bld) 0.0 % Normal 0-5 [facility] Comment on above: Performed By: #### L 501.5200, L501.2300, L500.4050, L100.0100 ####[facility] [address] [place], [address] Erythrocyte distribution wid th (RBC) [Ratio]Ordered By: Polly Herr on 04-30-2024 Erythrocyte distribution width (RBC) [Entitic vol] 43.2 fL 35.1-43.9 [facility] Erythrocyte distribution wid th ratioOrdered By: Polly Herr on 04-30-2024 Erythrocyte distribution width (RBC) [Ratio] 13.3 % Normal 11.6-14.6 [facility] Comment on above: Performed By: #### L 501.5200, L501.2300, L500.4050, L100.0100 ####[facility] [address] [place], [place], [id number] Estimated glomerular filtrat ion rate (GFR) AmericanOrdered By: Polly Herr on 04-30-2024 Estimated GFR (MDRD) Amer 64 mL/min >60 [facility] Comment on above: GFR Calc Estimation of creatinine keo aranceOrdered By: Polly Herr on 04-30-2024 Estimated Creatinine Clearance Calc 52.31 ml/min [facility] Glomerular filtration rate ( GFR) estimationOrdered By: Polly Herr on 04-30-2024 Estimated GFR (MDRD) Non-Af Amer 53 mL/min Low >60 [facility] Comment on above: Non- GFR Calc Glucose measurementOrdered B y: Polly Herr on 04-30-2024 Glucose [Mass/Vol] 352 mg/dL [address] [facility] Comment on above: Glucose result great er than or equal to 200 mg/dLsuggests DIABETES MELLITUS per A.D.A. criteria. [facility] deOrdered By: Nathan Torres on 04-30-2024 Bedside Glucose (Misc Panel) 307 mg/dL [address] Comment on above: MANAGEMENT OF PATIEN T CARE PER NURSING PROTOCOL Hemoglobin measurementOrdere d By: Polly Herr on 04-30-2024 Hemoglobin (Bld) [Mass/Vol] 16.3 g/dL [facility] 12.0-15.0 [facility] Comment on above: Performed By: #### L 501.5200, L501.2300, L500.4050, L100.0100 ####[facility] [address] [place], [place], [id number] Immature granulocytes/100 WB C Auto (Bld)Ordered By: Polly Herr on 04-30-2024 Immature granulocytes/100 WBC (Bld) 1.200 % High 0.0-0.9 [facility] Comment on above: IG% - Immature Granu locytes (promyelocytes, myelocytes and metamyelocytes) > 1% indicates that a LEFT SHIFT is Present. Laboratory - Chemistry and C hemistry - challengeOrdered By: Polly Herr on 04-30-2024 AST [Catalytic activity/Vol] 15 U/L 15-37 [facility] Lymphocytes Auto (Unsp spec) [#/Vol]Ordered By: Polly Herr on 04-30-2024 Lymphocytes (Bld) [#/Vol] 1.26 10*3/uL 0.83-4.51 [facility] MCV (mean corpuscular volume ) determinationOrdered By: Polly Herr on 04-30-2024 MCV (RBC) [Entitic vol] 88.9 fL Normal 81-99 [facility] Comment on above: Performed By: #### L 501.5200, L501.2300, L500.4050, L100.0100 ####[facility] [address] [place], [address] Magnesiumon 04-30-2024 Magnesium [Mass/Vol] 2.1 mg/dL Normal 1.6-2.6 [facility] Comment on above: Performed By: #### L 501.5200, L501.2300, L500.4050, L100.0100 ####[facility] [address] [place], [address] Magnesium measurementOrdered By: Polly Herr on 04-30-2024 Magnesium [Mass/Vol] 2.1 mg/dL 1.6-2.6 [facility] Mean corpuscular hemoglobin (MCH) determinationOrdered By: Polly Herr on 04-30-2024 MCH (RBC) [Entitic mass] 29.1 pg Normal 27.0-32.0 [facility] Comment on above: Performed By: #### L 501.5200, L501.2300, L500.4050, L100.0100 ####[facility] [address] [place], [address] Mean corpuscular hemoglobin concentration (MCHC) determinationOrdered By: Polly Herr on 04-30-2024 MCHC (RBC) [Mass/Vol] 32.7 g/dL Normal 32-[address] [facility] Comment on above: Performed By: #### L 501.5200, L501.2300, L500.4050, L100.0100 ####[facility] [address] [place], [address] Mean platelet volume determi nationOrdered By: Polly Herr on 04-30-2024 Platelet mean volume (Bld) [Entitic vol] 10.6 fL Normal 6.2-12.0 [facility] Comment on above: Performed By: #### L 501.5200, L501.2300, L500.4050, L100.0100 ####[facility] [address] [place], [address] Monocyte percentageOrdered B y: Polly Herr on 04-30-2024 Monocytes/100 WBC (Bld) 0.5 % Normal 0-10 [facility] Comment on above: Performed By: #### L 501.5200, L501.2300, L500.4050, L100.0100 ####[facility] [address] [place], [address] Neutrophil percentageOrdered By: Polly Herr on 04-30-2024 Neutrophils/100 WBC (Bld) 90.6 % High 47-70 [facility] Comment on above: Performed By: #### L 501.5200, L501.2300, L500.4050, L100.0100 ####[facility] [address] [place], [address] Nucleated red blood cell per centageOrdered By: Polly Herr on 04-30-2024 Nucleated RBC/100 WBC (Bld) [Ratio] 0 % 0-5 [facility] Phosphoruson 04-30-2024 Phosphate [Mass/Vol] 3.7 mg/dL Normal 2.5-4.9 [facility] Comment on above: Performed By: #### L 501.5200, L501.2300, L500.4050, L100.0100 ####[facility] [address] [place], [address] Phosphorus measurementOrdere d By: Polly Herr on 04-30-2024 Phosphorus Level 3.7 mg/dL 2.5-4.9 [facility] Platelet countOrdered By: Mane Herr on 04-30-2024 Platelets (Bld) [#/Vol] 328 10*3/uL Normal 150-450 [facility] Comment on above: Performed By: #### L 501.5200, L501.2300, L500.4050, L100.0100 ####[facility] [address] [place], [address] Potassium measurementOrdered By: Polly Herr on 04-30-2024 Potassium [Moles/Vol] 4.4 mmol/L 3.5-5.[address] [facility] Serum anion gap measurementO rdered By: Polly Herr on 04-30-2024 Anion gap [Moles/Vol] 13 mmol/L 5-[address] [facility] Serum globulin measurementOr dered By: Polly Herr on 04-30-2024 Globulin (S) [Mass/Vol] 4.6 g/dL High 2.2-4.2 [facility] Serum or plasma alanine nova otransferase (ALT) measurementOrdered By: Polly Herr on 04-30-2024 ALT [Catalytic activity/Vol] 19 U/L 13-56 [facility] Serum or plasma albumin betsy urement (mass/volume)Ordered By: Polly Herr on 04-30-2024 Albumin [Mass/Vol] 3.8 g/dL 3.2-5.0 [facility] Serum or plasma alkaline maritza sphatase measurementOrdered By: Polly Herr on 04-30-2024 ALP [Catalytic activity/Vol] 116 U/L 45-117 [facility] Serum or plasma calcium betsy urement (mass/volume)Ordered By: Polly Herr on 04-30-2024 Calcium [Mass/Vol] 10.4 mg/dL High 8.5-10.1 [facility] Serum or plasma creatinine m easurement [...] Urea nitrogen [Mass/Vol] 19 mg/dL High 7-18 [facility] Sodium levelOrdered By: Neto Herr on 04-30-2024 Sodium [Moles/Vol] 137 mmol/L 136-145 [facility] Stress Reporton 04-30-2024 Stress Report [facility] Cardi[facility] Services [address] [place] [id number] MR#: [id number] Acct: [id number] Name: FELICITAS ALCANTARA Rep #: [id number] : 1950 73 From: Delgado Cruz MD [...] than 70%. This note was generated with 1-800-DOCTORSation software. It may contain incorrect words, spelling, and punctuation that were not noted in checking the note before signing. 04/30/24 1151 Date Delgado Cruz MD CC: Dr. Polly Lomeli DO; Dr. Nathan Torres DO; Dr. Harish Noel MD; Dr. Sly Blanco DO Date Dictated: 04/30/24 1146 Date Transcribed: 04/30/24 1146 Manager [employer] Marketing: NN Signed Normal [facility] Total proteinOrdered By: Frank Herr on 04-30-2024 Protein [Mass/Vol] 8.4 g/dL High 6.4-8.2 [facility] White blood cell (WBC) count Ordered By: Polly Herr on 04-30-2024 WBC (Bld) [#/Vol] 17.7 10*3/uL High 4.4-11.0 [facility] Comment on above: Performed By: #### L 501.5200, L501.2300, L500.4050, L100.0100 ####[facility] [address] [place], [address] 12 Lead EKGon 04-29-2024 12 Lead EKG [facility] Cardiovascular Services [address] [place] [address] 12 Lead EKG 04/30/24 0528 MR#: [id number] Acct: [id number] Name: FELICITAS ALCANTARA Rep #: [id number] : 1950 73 From: Delgado Cruz MD Attending Dr: Dr. Nathan Torres DO Status: DIS RUBINA Ordering Dr: Polly Lomeli DO Date: 04/29/24 Location: [facility] Sex: F C Admitted: 04/29/24 Test Reason [...] ECG Confirmed by ANTHONY MCARTHUR, ADELA ([id number]), slot editor ALLA LAINEZ ([id number]) on 05/01/2024 1:04:01 PM Referred By: Sly Blanco Confirmed By: ADELA CRUZ MD 05/01/24 0034 Date Delgado Cruz MD CC: Dr. Polly Lomeli DO; Dr. Nathan Torres DO; Dr. Harish Noel MD; Dr. Sly Blanco DO Signed Normal [facility] 12 Lead EKG [facility] Cardiovascular Services [address] [place] [address] 12 Lead EKG 04/29/24 1556 MR#: [id number] Acct: [id number] Name: FELICITAS ALCANTARA Rep #: [id number] : 1950 73 From: Delgado Cruz MD [...] ECG Confirmed by ANTHONY MCARTHUR, ADELA ([id number]), slot editor ALLA LAINEZ ([id number]) on 05/01/2024 1:00:07 PM Referred By: Sly Blanco Confirmed By: ADELA CRUZ MD 05/01/24 1300 Date Delgado Cruz MD CC: Dr. Nathan Torres DO; Dr. Harish Noel MD; Dr. Sly Blanco DO Signed Normal [facility] Arterial patency Wrist arter y --pre arterial punctureOrdered By: Polly Herr on 04-29-2024 Wagner Test Positive [facility] BNP (brain natriuretic pepti de measurement)Ordered By: Sly Blanco on 04-29-2024 Natriuretic peptide B (Bld) [Mass/Vol] 161.4 pg/mL High 0-100 [facility] BNP,B-Type NATRIURETIC PEPTI Yahaira 04-29-2024 Natriuretic peptide B (Bld) [Mass/Vol] 161.4 pg/mL High 0-100 [facility] Comment on above: Performed By: #### L 100.0100, L500.2500, L300.8000, L501.4020 #### [facility] [address] [place], [address] Base excess Calc (BldV) [Mol es/Vol]Ordered By: Polly Herr on 04-29-2024 Blood Gas Base Excess 4 mmol/L High -2-[address] [facility] Basic Metabolic Profile (BMP )on 04-29-2024 BUN/CRE 18.2 RATIO Normal 10-20 [facility] Comment on above: Performed By: #### L 100.0100, L500.2500, L300.8000, L501.4020 #### [facility] [address] [place], [address] CA,Total 9.6 mg/dL Normal 8.5-10.1 [facility] Comment on above: Performed By: #### L 100.0100, L500.2500, L300.8000, L501.4020 #### [facility] [address] [place], [address] Chloride [Moles/Vol] 101 mmol/L Normal 98-107 [facility] Comment on above: Performed By: #### L 100.0100, L500.2500, L300.8000, L501.4020 #### [facility] [address] [place], [address] CO2 [Moles/Vol] 26.0 mmol/L Normal 21.0-32.0 [facility] Comment on above: Performed By: #### L 100.0100, L500.2500, L300.8000, L501.4020 #### [facility] [address] [place], [address] Creatinine [Mass/Vol] 0.82 mg/dL Normal 0.55-1.[address] [facility] Comment on above: Result Comment: The validity of the calculated GFR GFRAA in patients over 70 years has not been determined. Clinical correlation is essential. Performed By: #### L 100.0100, L500.2500, L300.8000, L501.4020 #### [facility] [address] [place], [address] ECRCL 70.51 ml/min Normal [facility] Comment on above: Performed By: #### L 100.0100, L500.2500, L300.8000, L501.4020 #### [facility] [address] [place], [address] EST GFR - AA 88 mL/min Normal >60 [facility] Comment on above: Result Comment: Afri can [place] GFR Calc Performed By: #### L 100.0100, L500.2500, L300.8000, L501.4020 #### [facility] [address] [place], [address] GAP 9 Normal 5-15 [facility] Comment on above: Performed By: #### L 100.0100, L500.2500, L300.8000, L501.4020 #### [facility] [address] [place], [address] GFR/1.73 sq M.predicted among non-blacks MDRD (S/P/Bld) [Vol rate/Area] 73 mL/min/{1.73_m2} Normal >60 [facility] Comment on above: Result Comment: Non- GFR Calc Performed By: #### L 100.0100, L500.2500, L300.8000, L501.4020 #### [facility] [address] [place], [address] Glucose [Mass/Vol] 148 mg/dL High 74-106 [facility] Comment on above: Result Comment: Fast ing Glucose result greater than or equal to 126 mg/dL suggests DIABETES MELLITUS per A.D.A. criteria. Performed By: #### L 100.0100, L500.2500, L300.8000, L501.4020 #### [facility] [address] [place], [address] Potassium [Moles/Vol] 3.8 mmol/L Normal 3.5-5.[address] [facility] Comment on above: Performed By: #### L 100.0100, L500.2500, L300.8000, L501.4020 #### [facility] [address] [place], [address] Sodium [Moles/Vol] 136 mmol/L Normal 136-145 [facility] Comment on above: Performed By: #### L 100.0100, L500.2500, L300.8000, L501.4020 #### [facility] [address] [place], [address] Urea nitrogen [Mass/Vol] 15 mg/dL Normal 7-18 [facility] Comment on above: Performed By: #### L 100.0100, L500.2500, L300.8000, L501.4020 #### [facility] [address] [place], [address] Bilirubin Test strip Ql (U)O rdered By: Sly Blanco on 04-29-2024 Bilirubin Ql (U) Negative Negative [facility] TEST Positive Normal [facility] Comment on above: Performed By: #### L 100.0100, L500.2500, L300.8000, L501.4020 #### [facility] [address] [place], [address] Base excess Calc (Bld) [Moles/Vol] 4 mmol/L High -2 to +2 [facility] Comment on above: Performed By: #### L 100.0100, L500.2500, L300.8000, L501.4020 #### [facility] [address] [place], [address] Blood Gas Type ART [facility] Comment on above: Performed By: #### L 100.0100, L500.2500, L300.8000, L501.4020 #### [facility] [address] [place], [address] CO2 [Moles/Vol] 28 mmol/L Normal [facility] Comment on above: Performed By: #### L 100.0100, L500.2500, L300.8000, L501.4020 #### [facility] [address] [place], [address] HCO3 (Bld) [Moles/Vol] 27.2 mmol/L High 22-26 [facility] Comment on above: Performed By: #### L 100.0100, L500.2500, L300.8000, L501.4020 #### [facility] [address] [place], [address] Mode Not entered [facility] Comment on above: Performed By: #### L 100.0100, L500.2500, L300.8000, L501.4020 #### [facility] [address] [place], [address] O2 Delivery Dev Room Air [facility] Comment on above: Performed By: #### L 100.0100, L500.2500, L300.8000, L501.4020 #### [facility] [address] [place], [address] pCO2 32.8 mmHg Low 35-45 [facility] Comment on above: Performed By: #### L 100.0100, L500.2500, L300.8000, L501.4020 #### [facility] [address] [place], [address] pH (Bld) 7.53 [pH] High 7.35-7.45 [facility] Comment on above: Performed By: #### L 100.0100, L500.2500, L300.8000, L501.4020 #### [facility] [address] [place], [address] PO2 60 mmHG Low 75-100 [facility] Comment on above: Performed By: #### L 100.0100, L500.2500, L300.8000, L501.4020 #### [facility] [address] [place], [address] SITE L Radial Normal [facility] Comment on above: Performed By: #### L 100.0100, L500.2500, L300.8000, L501.4020 #### [facility] [address] [place], [address] SO2 94 Low 95-99 [facility] Comment on above: Performed By: #### L 100.0100, L500.2500, L300.8000, L501.4020 #### [facility] [address] [place], [address] Blood bicarbonate measuremen tOrdered By: Polly Herr on 04-29-2024 Blood Gas Bicarbonate Actual 27.2 mmol/L High 22-26 [facility] CBC W/Diff, Automatedon 04-18 Absolute Lymph 1.79 X10 3/uL Normal 0.83-4.51 [facility] Comment on above: Performed By: #### L 100.0100, L500.2500, L300.8000, L501.4020 #### [facility] [address] [place], [address] Absolute Neut 11.7 X10 3/uL High 2.0-7.7 [facility] Comment on above: Performed By: #### L 100.0100, L500.2500, L300.8000, L501.4020 #### [facility] [address] [place], [address] Basophils/100 WBC (Bld) 0.5 % Normal 0-1 [facility] Comment on above: Performed By: #### L 100.0100, L500.2500, L300.8000, L501.4020 #### [facility] [address] [place], [address] Eosinophils/100 WBC (Bld) 2.3 % Normal 0-5 [facility] Comment on above: Performed By: #### L 100.0100, L500.2500, L300.8000, L501.4020 #### [facility] [address] [place], [address] Erythrocyte distribution width (RBC) [Ratio] 13.2 % Normal 11.6-14.6 [facility] Comment on above: Performed By: #### L 100.0100, L500.2500, L300.8000, L501.4020 #### [facility] [address] [place], [address] Hematocrit (Bld) [Volume fraction] 47.7 % High 37-47 [facility] Comment on above: Performed By: #### L 100.0100, L500.2500, L300.8000, L501.4020 #### [facility] [address] [place], [address] Hemoglobin (Bld) [Mass/Vol] 15.2 g/dL High 12.0-15.0 [facility] Comment on above: Performed By: #### L 100.0100, L500.2500, L300.8000, L501.4020 #### [facility] [address] [place], [address] IG% 0.600 Normal 0.0-0.9 [facility] Comment on above: Result Comment: IG% - Immature Granulocytes (promyelocytes, myelocytes and metamyelocytes) > 1% indicates that a LEFT SHIFT is Present. Performed By: #### L 100.0100, L500.2500, L300.8000, L501.4020 #### [facility] [address] [place], [address] Lymphocytes/100 WBC (Bld) 12.1 % Low 19-41 [facility] Comment on above: Performed By: #### L 100.0100, L500.2500, L300.8000, L501.4020 #### [facility] [address] [place], [address] MCH (RBC) [Entitic mass] 28.5 pg Normal 27.0-32.0 [facility] Comment on above: Performed By: #### L 100.0100, L500.2500, L300.8000, L501.4020 #### [facility] [address] [place], [address] MCHC (RBC) [Mass/Vol] 31.9 g/dL Low 32-[address] [facility] Comment on above: Performed By: #### L 100.0100, L500.2500, L300.8000, L501.4020 #### [facility] [address] [place], [address] MCV (RBC) [Entitic vol] 89.5 fL Normal 81-99 [facility] Comment on above: Performed By: #### L 100.0100, L500.2500, L300.8000, L501.4020 #### [facility] [address] [place], [address] Monocytes/100 WBC (Bld) 4.9 % Normal 0-10 [facility] Comment on above: Performed By: #### L 100.0100, L500.2500, L300.8000, L501.4020 #### [facility] [address] [place], [address] Neutrophils/100 WBC (Bld) 79.6 % High 47-70 [facility] Comment on above: Performed By: #### L 100.0100, L500.2500, L300.8000, L501.4020 #### [facility] [address] [place], [address] Nucleated RBC (Bld) [#/Vol] 0 10*3/uL Normal 0-5 [facility] Comment on above: Performed By: #### L 100.0100, L500.2500, L300.8000, L501.4020 #### [facility] [address] [place], [address] Platelet mean volume (Bld) [Entitic vol] 10.7 fL Normal 6.2-12.0 [facility] Comment on above: Performed By: #### L 100.0100, L500.2500, L300.8000, L501.4020 #### [facility] [address] [place], [address] Platelets (Bld) [#/Vol] 291 10*3/uL Normal 150-450 [facility] Comment on above: Performed By: #### L 100.0100, L500.2500, L300.8000, L501.4020 #### [facility] [address] [place], [address] RBC (Bld) [#/Vol] 5.33 10*6/uL Normal 4.2-5.4 [facility] Comment on above: Performed By: #### L 100.0100, L500.2500, L300.8000, L501.4020 #### [facility] [address] [place], [address] RDW SD 43.5 fl Normal 35.1-43.9 [facility] Comment on above: Performed By: #### L 100.0100, L500.2500, L300.8000, L501.4020 #### [facility] [address] [place], [address] WBC (Bld) [#/Vol] 14.8 10*3/uL High 4.4-11.0 [facility] Comment on above: Performed By: #### L 100.0100, L500.2500, L300.8000, L501.4020 #### [facility] [address] [place], [address] Chest 1 View (Portable)on Chest 1 View (Portable) [facility] Imaging Services [address] [place] [address] Chest 1 View (Portable) MR#: [id number] Acct: [id number] Name: FELICITAS ALCANTARA Rep #: [id number] : 1950 F 73 From: Aviva Joyner nd, MD PCP: Dr. Harish Noel MD Status: [facility] ER Study: Chest 1 View (Portable) Date of Exam: 04/29/24 Exam# [id number] Ordering Dr: Sly Blanco DO PROCEDURE: CHEST [...] cardiomegaly. Otherwise unremarkable chest radiograph. Reading Location: [facility] CC: Dr. Harish Noel MD; Dr. Sly Blanco DO Manager Corporate Marketing: Signed Normal [facility] D-Dimer Quantitative (DVT/PE )on 04-29-2024 D-DIMER QUANT < 0.27 Low 0.27-0.49 [facility] Comment on above: Result Comment: NORM AL D-Dimer level (<0.50) indicates no DVT or PE. Performed By: #### L 100.0100, L500.2500, L300.8000, L501.4020 #### [facility] [address] [place], [address] D-dimer measurement for deep venous thrombosisOrdered By: Syl Blanco on 04-29-2024 D-Dimer Quantitative (PE/DVT) < 0.27 FEU/ug/m Low 0.27-0.49 [facility] Comment on above: NORMAL D-Dimer level (<0.50) indicates no DVT or PE. Emergency Department Summary on 04-29-2024 Emergency Department Summary [facility] Medical Records Department [address] [place] [address] Emergency Department Summary 04/29/24 MR#: [id number] Acct: [id number] Name: FELICITAS ALCANTARA Rep #: [id number] : 1950 73 From: Sly Blanco DO PCP: Dr. Harish Noel MD Status:[facility] Location: [address] History of Present Illness Chief Complaint: Shortness of Breath [facility] Medical History History of left heart catheterization (LHC) ( 09/05/21) Abnormal nuclear stress test Dyspnea on exertion Mass of lip Elevated WBC count History of DVT (deep vein thrombosis) Presence of stent in coronary artery ( 04/10/16) History of non-ST elevation myocardial infarction (NSTEMI) Cardiogenic shock Type 2 diabetes mellitus Atherosclerotic heart disease of [place] coronary artery without angina pectoris Essential hypertension Carpal tunnel syndrome Hyperlipemia Hypertension Hypothyroidism History of pneumonia IBS (irritable bowel syndrome) Diabetes Home Medications ???Medication ???Instructions ???Recorded ???Last Taken ???Type levothyroxine 112 mcg tablet 112 mcg PO DAILY #90 tabs 01/16/24 Unknown Rx ticagrelor 60 mg tablet (Brilinta) 60 mg PO BID 01/16/24 Unknown Hi story blood-glucose sensor ([employer] G7 #1 ea 01/20/24 Unknown Rx Sensor [...] stent, hyperlip (more content not included)... Normal [facility] Epithelial cells.squamous LM Ql (Urine sed)Ordered By: Sly Blanco on 04-29-2024 Epithelial cells.squamous LM.HPF (Urine sed) [#/Area] 0 /[HPF] 5-10 [facility] Glucose Ql (U)Ordered By: Giovanny Blanco on 04-29-2024 Urine Glucose (UA) Normal mg/dl Normal [facility] H AND P Exam - Hospitaliston 04-29-2024 H&P Exam - Hospitalist [facility] Medical Records Department [address] [place] [id number] H P Exam - Hospitalist 04/29/24 193 MR#: [id number] Acct: [id number] Name: FELICITAS ALCANTARA Rep #: [id number] : 1950 73 From: Polly Lomeli DO PCP: Dr. Harish Noel MD Status:ADM [facility] Location: [place] [address] HPI - General General Date of Admission: [...] (hives), CTS and OA who presents to [facility] complaining of chest pain, SOB and [...] expected to be less than 2 midnights. [facility] Medical History History of left heart catheterization (LHC) ( 09/05/21) Abnormal nuclear stress test Dyspnea on exertion Mass of lip Elevated WBC count History of DVT (deep vein thrombosis) Presence of stent in coronary artery ( 04/10/16) History of non-ST elevation myocardial infarction (NSTEMI) Cardiogenic shock Type 2 diabetes mellitus Atherosclerotic heart disease of [place] coronary artery without angina pectoris Essential hypertension [...] of hear (more content not included)... Normal [facility] Hemoglobin A1con 04-29-2024 HbA1c (Bld) [Mass fraction] 9.4 % High 3.8-5.6 [facility] Comment on above: Result Comment: Norm al < 5.7 % Prediabetic 5.7 - 6.4 % Diabetic >or= 6.5 % Please note range changes. Performed By: #### L 100.0100, L500.2500, L300.8000, L501.4020 #### [facility] [address] [place], [address] Hemoglobin A1c percentageOrd ered By: Polly Herr on 04-29-2024 HbA1c (Bld) [Mass fraction] 9.4 % High 3.8-5.6 [facility] Comment on above: Normal < 5.7 % Predi abetic 5.7 - 6.4 % Diabetic >or= 6.5 % Please note range changes. High density lipoprotein (HD L) measurementOrdered By: Polly Herr on 04-29-2024 Cholesterol in HDL [Mass/Vol] 64 mg/dL >40 [facility] Comment on above: The drugs N-Acetylcy steine and Metamizole may falsely depress this assay. Reference Range HDL <40 mg/dL Low HDL Cholesterol HDL >or= 60 mg/dL High HDL Cholesterol Influenza virus A and B and SARS-CoV-2 (COVID-19) and Respiratory syncytial virus RNAOrdered By: Sly Blanco on 04-29-2024 SARS-CoV-2 (COVID-19) RNA SLOAN+probe Ql (Unsp spec) [facility] Ketones Test strip Ql (U)Ord ered By: Sly Blanco on 04-29-2024 Ketones Ql (U) Negative Negative [facility] L501.4020on 04-29-2024 TROPONIN-I HS 17 pg/mL Normal 3.0-54.0 [facility] Comment on above: Order Comment: 'TROP ' Serial specimen #1, #2 or #3: 3 Result Comment: Carlton rice Note: New Test Units and Gender Specific Reference Ranges. For more information see Policy Stat Procedure [place] High Sensitivity Troponin (TNIH) and attachments. Performed By: #### L 501.4020 ####[facility] [address] [place], [address] TROPONIN-I HS 14 pg/mL Normal 3.0-54.0 [facility] Comment on above: Result Comment: Plea se Note: New Test Units and Gender Specific Reference Ranges. For more information see Policy Stat Procedure [place] High Sensitivity Troponin (TNIH) and attachments. Performed By: #### L 100.0100, L500.2500, L300.8000, L501.4020 #### [facility] [address] [place], [address] L501.5425on 04-29-2024 TROPONIN-I HS 12 pg/mL Normal 3.0-54.0 [facility] Comment on above: Order Comment: 'TROP ' Serial specimen #1, #2 or #3: 1 Result Comment: Plea se Note: New Test Units and Gender Specific Reference Ranges. For more information see Policy Stat Procedure [place] High Sensitivity Troponin (TNIH) and attachments. Performed By: #### L 100.0100, L500.2500, L300.8000, L501.4020 #### [facility] [address] [place], [address] Lipid Profileon 04-29-2024 Cholesterol [Mass/Vol] 197 mg/dL Normal 200 [facility] Comment on above: Result Comment: <200 mg/dL Desirable 200-240 mg/dL Borderline >240 mg/dL High Risk Performed By: #### L 100.0100, L500.2500, L300.8000, L501.4020 #### [facility] [address] [place], [address] Cholesterol in HDL [Mass/Vol] 64 mg/dL Normal [facility] Comment on above: Result Comment: The drugs N-Acetylcysteine and Metamizole may falsely depress this assay. Reference Range HDL <40 mg/dL Low HDL Cholesterol HDL >or= 60 mg/dL High HDL Cholesterol Performed By: #### L 100.0100, L500.2500, L300.8000, L501.4020 #### [facility] [address] [place], [address] Cholesterol in LDL [Mass/Vol] 102 mg/dL Normal 0-130 [facility] Comment on above: Performed By: #### L 100.0100, L500.2500, L300.8000, L501.4020 #### [facility] [address] [place], [address] Cholesterol in VLDL [Mass/Vol] 31 mg/dL Normal 5-40 [facility] Comment on above: Performed By: #### L 100.0100, L500.2500, L300.8000, L501.4020 #### [facility] [address] [place], [address] Triglyceride [Mass/Vol] 155 mg/dL Normal [facility] Comment on above: Result Comment: The drugs N-Acetylcysteine and Metamizole may falsely depress this assay. Serum Triglycerides Reference Interval Normal <150 mg/dL Borderline high 150 - 199 mg/dL High 200 - 499 mg/dL Very High > or = 500 mg/dL Performed By: #### L 100.0100, L500.2500, L300.8000, L501.4020 #### [facility] [address] [place], [address] Low density lipoprotein (LDL ) cholesterol measurementOrdered By: Polly Herr on 04-29-2024 Cholesterol in LDL [Mass/Vol] 102 mg/dL 0-130 [facility] M100.678on 04-29-2024 M100.678 SARS-CoV-2 (COVID 19 ) Negative INFLUENZA A Negative INFLUENZA B Negative RSV PCR Negative Normal [facility] Comment on above: Performed By: #### M 100.678 ####[facility] [address] [place], [address] Microscopic analysis of urin e for red blood cells (RBC)Ordered By: Sly Blanco on 04-29-2024 Urine RBC 0-5 SEEN /hpf 0-5 [facility] Mucus LM Ql (Urine sed)Order ed By: Sly Blanco on 04-29-2024 Mucus Ql (Urine sed) 0 SEEN /hpf [facility] Nitrite Test strip Ql (U)Ord ered By: Sly Blanco on 04-29-2024 Nitrite Ql (U) Negative Negative [facility] No Panel InformationOrdered By: Polly Herr on 04-29-2024 Blood Gas Sample Site L Radial [facility] Blood Gas Specimen Type ART [facility] Blood Gas Vent Mode Not entered [facility] Oxygen Delivery Device Room Air [facility] Oxygen saturation measuremen tOrdered By: Polly Herr on 04-29-2024 Blood Gas Oxygen Saturation 94 % Low 95-99 [facility] Partial pressure of carbon d ioxide measurementOrdered By: Polly Herr on 04-29-2024 Arterial Blood Partial Pressure CO2 32.8 mmHg Low 35-45 [facility] Partial pressure of oxygen m easurementOrdered By: Polly Herr on 04-29-2024 Arterial Blood Partial Pressure O2 60 mmHG Low 75-100 [facility] Protein Test strip Ql (U)Ord ered By: Sly Blanco on 04-29-2024 Protein Ql (U) Negative Negative [facility] Serum or plasma cholesterol measurement (mass/volume)Ordered By: Polly Herr on 04-29-2024 Cholesterol [Mass/Vol] 197 mg/dL <200 [facility] Comment on above: <200 mg/dL Desirable 200-240 mg/dL Borderline >240 mg/dL High Risk TSH QnOrdered By: Polly vasquez on 04-29-2024 Thyroid Stimulating Hormone (TSH) 3.480 uIU/mL 0.358-3.740 [facility] Thyroid Stim Hormone (TSH)on 04-29-2024 TSH 3.480 uIU/mL Normal 0.358-3.740 [facility] Comment on above: Performed By: #### L 100.0100, L500.2500, L300.8000, L501.4020 #### [facility] [address] [place], [place], [id number] Total carbon dioxide measure mentOrdered By: Polly Herr on 04-29-2024 Blood Gas Total CO2 28 mmol/L [facility] Triglycerides measurementOrd ered By: Polly Herr on 04-29-2024 Triglyceride [Mass/Vol] 155 mg/dL <199 [facility] Comment on above: The drugs N-Acetylcy steine and Metamizole may falsely depress this assay.Serum Triglycerides Reference Interval Normal <150 mg/dL Borderline high 150 - 199 mg/dL High 200 - 499 mg/dL Very High > or = 500 mg/dL Troponin IOrdered By: Polly Herr on 04-29-2024 Troponin I High Sensitivity 17 pg/mL 3.0-54.0 [facility] Comment on above: Please Note: [place] t Units and Gender Specific Reference Ranges. For more information see Policy Stat Procedure [place] High Sensitivity Troponin (TNIH) and attachments. Urinalysis, Completeon 04-29 EPI,SQUAMOUS 0-5 SEEN Normal 5-10 [facility] Comment on above: Order Comment: MAURISIO CTOR TO SPECIFY Performed By: #### L 400.0001 ####[facility] [address] [place], [address] RBC 0-5 SEEN Normal 0-5 [facility] Comment on above: Order Comment: MAURISIO CTOR TO SPECIFY Performed By: #### L 400.0001 ####[facility] [address] [place], [address] WBC 0-5 SEEN Normal 0-5 [facility] Comment on above: Order Comment: MAURISIO CTOR TO SPECIFY Performed By: #### L 400.0001 ####[facility] [address] [place], [address] BACTERIA Normal None Seen [facility] Comment on above: Order Comment: CLEAN CATCH Result Comment: Marina elled via OM: Duplicate Order Performed By: #### L 100.0100, L500.2500, L300.8000, L501.4020 #### [facility] [address] [place], [address] BILIRUBIN URINE Normal Negative [facility] Comment on above: Order Comment: CLEAN CATCH Result Comment: Canc elled via OM: Duplicate Order Performed By: #### L 100.0100, L500.2500, L300.8000, L501.4020 #### [facility] [address] [place], [address] Clarity (U) Normal Clear [facility] Comment on above: Order Comment: CLEAN CATCH Result Comment: Canc elled via OM: Duplicate Order Performed By: #### L 100.0100, L500.2500, L300.8000, L501.4020 #### [facility] [address] [place], [address] Color (U) Normal Yellow [facility] Comment on above: Order Comment: CLEAN CATCH Result Comment: Canc elled via OM: Duplicate Order Performed By: #### L 100.0100, L500.2500, L300.8000, L501.4020 #### [facility] [address] [place], [address] EPI,SQUAMOUS Normal 5-10 [facility] Comment on above: Order Comment: CLEAN CATCH Result Comment: Canc elled via OM: Duplicate Order Performed By: #### L 100.0100, L500.2500, L300.8000, L501.4020 #### [facility] [address] [place], [address] GLUCOSE, UR Normal Normal [facility] Comment on above: Order Comment: CLEAN CATCH Result Comment: Canc elled via OM: Duplicate Order Performed By: #### L 100.0100, L500.2500, L300.8000, L501.4020 #### [facility] [address] [place], [address] KETONE UR Normal Negative [facility] Comment on above: Order Comment: CLEAN CATCH Result Comment: Canc elled via OM: Duplicate Order Performed By: #### L 100.0100, L500.2500, L300.8000, L501.4020 #### [facility] [address] [place], [address] LEUK ESTERASE Normal Negative [facility] Comment on above: Order Comment: CLEAN CATCH Result Comment: Canc elled via OM: Duplicate Order Performed By: #### L 100.0100, L500.2500, L300.8000, L501.4020 #### [facility] [address] [place], [address] Mucus Ql (Urine sed) Normal [facility] Comment on above: Order Comment: CLEAN CATCH Result Comment: Canc elled via OM: Duplicate Order Performed By: #### L 100.0100, L500.2500, L300.8000, L501.4020 #### [facility] [address] [place], [address] Nitrite Ql (U) Normal Negative [facility] Comment on above: Order Comment: CLEAN CATCH Result Comment: Canc elled via OM: Duplicate Order Performed By: #### L 100.0100, L500.2500, L300.8000, L501.4020 #### [facility] [address] [place], [address] OCCULT BLOOD-UR Normal Negative [facility] Comment on above: Order Comment: CLEAN CATCH Result Comment: Canc elled via OM: Duplicate Order Performed By: #### L 100.0100, L500.2500, L300.8000, L501.4020 #### [facility] [address] [place], [address] pH UR Normal 5.0 - 8.0 [facility] Comment on above: Order Comment: CLEAN CATCH Result Comment: Canc elled via OM: Duplicate Order Performed By: #### L 100.0100, L500.2500, L300.8000, L501.4020 #### [facility] [address] [place], [address] PROT DIPSTX Normal Negative [facility] Comment on above: Order Comment: CLEAN CATCH Result Comment: Canc elled via OM: Duplicate Order Performed By: #### L 100.0100, L500.2500, L300.8000, L501.4020 #### [facility] [address] [place], [address] RBC Normal 0-5 [facility] Comment on above: Order Comment: CLEAN CATCH Result Comment: Canc elled via OM: Duplicate Order Performed By: #### L 100.0100, L500.2500, L300.8000, L501.4020 #### [facility] [address] [place], [address] SP.GR. DIPSTX Normal 1.002-1.030 [facility] Comment on above: Order Comment: CLEAN CATCH Result Comment: Canc elled via OM: Duplicate Order Performed By: #### L 100.0100, L500.2500, L300.8000, L501.4020 #### [facility] [address] [place], [address] UR Preservative Normal [facility] Comment on above: Order Comment: CLEAN CATCH Result Comment: Canc elled via OM: Duplicate Order Performed By: #### L 100.0100, L500.2500, L300.8000, L501.4020 #### [facility] [address] [place], [address] UROBILI Normal Normal [facility] Comment on above: Order Comment: CLEAN CATCH Result Comment: Canc elled via OM: Duplicate Order Performed By: #### L 100.0100, L500.2500, L300.8000, L501.4020 #### [facility] [address] [place], [address] WBC Normal 0-5 [facility] Comment on above: Order Comment: CLEAN CATCH Result Comment: Canc elled via OM: Duplicate Order Performed By: #### L 100.0100, L500.2500, L300.8000, L501.4020 #### [facility] [address] [place], [address] BACTERIA 0 SEEN Normal None Seen [facility] Comment on above: Order Comment: MAURISIO CTOR TO SPECIFY Performed By: #### L 400.0001 ####[facility] [address] [place], [address] Mucus Ql (Urine sed) 0 SEEN Normal [facility] Comment on above: Order Comment: COLLE CTOR TO SPECIFY Performed By: #### L 400.0001 ####[facility] [address] [place], [address] Urine Drug Screen (VISTA)on 04-29-2024 AMPHETAMINES Normal <1000 ng/mL [facility] Comment on above: Result Comment: PT.D ISCHARGED, COULD NOT FIND A PLAIN YELLOW TOP/STERILE CUP URINE Performed By: #### L 100.0100, L500.2500, L300.8000, L501.4020 #### [facility] [address] [place], [address] BARBITIURATES Normal < 200 ng/mL [facility] Comment on above: Result Comment: PT.D ISCHARGED, COULD NOT FIND A PLAIN YELLOW TOP/STERILE CUP URINE Performed By: #### L 100.0100, L500.2500, L300.8000, L501.4020 #### [facility] [address] [place], [address] BENZODIAZIPINE Normal < 200 ng/mL [facility] Comment on above: Result Comment: PT.D ISCHARGED, COULD NOT FIND A PLAIN YELLOW TOP/STERILE CUP URINE Performed By: #### L 100.0100, L500.2500, L300.8000, L501.4020 #### [facility] [address] [place], [address] COCAINE Normal < 300 ng/mL [facility] Comment on above: Result Comment: PT.D ISCHARGED, COULD NOT FIND A PLAIN YELLOW TOP/STERILE CUP URINE Performed By: #### L 100.0100, L500.2500, L300.8000, L501.4020 #### [facility] [address] [place], [address] DRUG CONFIRM Normal [facility] Comment on above: Result Comment: PT.D ISCHARGED, COULD NOT FIND A PLAIN YELLOW TOP/STERILE CUP URINE Performed By: #### L 100.0100, L500.2500, L300.8000, L501.4020 #### [facility] [address] [place] [address] ECSTACY Normal < 500 ng/mL [facility] Comment on above: Result Comment: PT.D ISCHARGED, COULD NOT FIND A PLAIN YELLOW TOP/STERILE CUP URINE Performed By: #### L 100.0100, L500.2500, L300.8000, L501.4020 #### [facility] [address] [place] [address] METHADONE Normal < 300 ng/mL [facility] Comment on above: Result Comment: PT.D ISCHARGED, COULD NOT FIND A PLAIN YELLOW TOP/STERILE CUP URINE Performed By: #### L 100.0100, L500.2500, L300.8000, L501.4020 #### [facility] [address] [facility] [address] OPIATES Normal < 300 ng/mL [facility] Comment on above: Result Comment: PT.D ISCHARGED, COULD NOT FIND A PLAIN YELLOW TOP/STERILE CUP URINE Performed By: #### L 100.0100, L500.2500, L300.8000, L501.4020 #### [facility] [address] [place] [address] PCP Normal < 25 ng/mL [facility] Comment on above: Result Comment: PT.D ISCHARGED, COULD NOT FIND A PLAIN YELLOW TOP/STERILE CUP URINE Performed By: #### L 100.0100, L500.2500, L300.8000, L501.4020 #### [facility] [address] [place], [address] THC Normal < 50 ng/mL [facility] Comment on above: Result Comment: PT.D ISCHARGED, COULD NOT FIND A PLAIN YELLOW TOP/STERILE CUP URINE Performed By: #### L 100.0100, L500.2500, L300.8000, L501.4020 #### [facility] [address] [place], [address] VISTA UDS PH Normal [facility] Comment on above: Result Comment: PT.D ISCHARGED, COULD NOT FIND A PLAIN YELLOW TOP/STERILE CUP URINE Performed By: #### L 100.0100, L500.2500, L300.8000, L501.4020 #### [facility] [address] [place], [address] Urine blood detectionOrdered By: Sly Blanco on 04-29-2024 Urine Occult Blood 10 /ul High Negative [facility] Urine clarityOrdered By: Kinjal Blanco on 04-29-2024 Clarity (U) Clear Clear [facility] Urine color determinationOrd ered By: Sly Blanco on 04-29-2024 Color (U) Straw Yellow [facility] Urine leukocyte esterase det ection by dipstickOrdered By: Sly Blanco on 04-29-2024 Leukocyte esterase Test strip Ql (U) 25 /ul High Negative [facility] Urine pHOrdered By: Sly sandra on 04-29-2024 pH (U) 8.0 [pH] 5.0 - 8.0 [facility] Urine sediment bacteria coun t by microscopy (number/high power field)Ordered By: Sly Blanco on 04-29-2024 Bacteria LM.HPF (Urine sed) [#/Area] 0 /[HPF] None Seen [facility] Urine specific gravity measu rementOrdered By: Sly Blanco on 04-29-2024 Specific gravity (U) [Rel density] 1.010 1.002-1.030 [facility] Urobilinogen Ql (U)Ordered B y: Sly Blanco on 04-29-2024 Urine Urobilinogen Normal mg/dl Normal [facility] Very low density lipoprotein (VLDL) cholesterol measurementOrdered By: Polly Herr on 04-29-2024 VLDL Cholesterol 31 mg/dL 5-40 [facility] White blood cell countOrdere d By: Sly Blanco on 04-29-2024 Urine WBC 0-5 SEEN /hpf 0-5 [facility] pH (Unsp spec)Ordered By: Mane Herr on 04-29-2024 Blood Gas pH 7.53 High 7.35-7.45 [facility] CBC W/Diff, Automatedon 11-0 -2023 Absolute Lymph 2.42 X10 3/uL Normal 0.83-4.51 [facility] Comment on above: Performed By: #### L 400.0001 #### [facility] [address] [place], [address] Absolute Neut 9.2 X10 3/uL High 2.0-7.7 [facility] Comment on above: Performed By: #### L 400.0001 #### [facility] [address] [place], [address] Basophils/100 WBC (Bld) 0.3 % Normal 0-1 [facility] Comment on above: Performed By: #### L 400.0001 #### [facility] [address] [place], [address] Eosinophils/100 WBC (Bld) 2.0 % Normal 0-5 [facility] Comment on above: Performed By: #### L 400.0001 #### [facility] [address] [place], [address] Erythrocyte distribution width (RBC) [Ratio] 13.1 % Normal 11.6-14.6 [facility] Comment on above: Performed By: #### L 400.0001 #### [facility] [address] [place], [address] Hematocrit (Bld) [Volume fraction] 44.4 % Normal 37-47 [facility] Comment on above: Performed By: #### L 400.0001 #### [facility] [address] [place], [address] Hemoglobin (Bld) [Mass/Vol] 14.1 g/dL Normal 12.0-15.0 [facility] Comment on above: Performed By: #### L 400.0001 #### [facility] [address] [place], [address] IG% 0.600 Normal 0.0-0.9 [facility] Comment on above: Result Comment: IG% - Immature Granulocytes (promyelocytes, myelocytes and metamyelocytes) > 1% indicates that a LEFT SHIFT is Present. Performed By: #### L 400.0001 #### [facility] [address] [place], [address] Lymphocytes/100 WBC (Bld) 18.9 % Low 19-41 [facility] Comment on above: Performed By: #### L 400.0001 #### [facility] [address] [place], [address] MCH (RBC) [Entitic mass] 29.4 pg Normal 27.0-32.0 [facility] Comment on above: Performed By: #### L 400.0001 #### [facility] [address] [place], [address] MCHC (RBC) [Mass/Vol] 31.8 g/dL Low 32-[address] [facility] Comment on above: Performed By: #### L 400.0001 #### [facility] [address] [place], [address] MCV (RBC) [Entitic vol] 92.5 fL Normal 81-99 [facility] Comment on above: Performed By: #### L 400.0001 #### [facility] [address] [place], [address] Monocytes/100 WBC (Bld) 6.7 % Normal 0-10 [facility] Comment on above: Performed By: #### L 400.0001 #### [facility] [address] [place], [address] Neutrophils/100 WBC (Bld) 71.5 % High 47-70 [facility] Comment on above: Performed By: #### L 400.0001 #### [facility] [address] [place], [address] Nucleated RBC (Bld) [#/Vol] 0 10*3/uL Normal 0-5 [facility] Comment on above: Performed By: #### L 400.0001 #### [facility] [address] [place], [address] Platelet mean volume (Bld) [Entitic vol] 10.8 fL Normal 6.2-12.0 [facility] Comment on above: Performed By: #### L 400.0001 #### [facility] [address] [place], [address] Platelets (Bld) [#/Vol] 305 10*3/uL Normal 150-450 [facility] Comment on above: Performed By: #### L 400.0001 #### [facility] [address] [place], [address] RBC (Bld) [#/Vol] 4.80 10*6/uL Normal 4.2-5.4 [facility] Comment on above: Performed By: #### L 400.0001 #### [facility] [address] [place], [address] RDW SD 44.4 fl High 35.1-43.9 [facility] Comment on above: Performed By: #### L 400.0001 #### [facility] [address] [place], [address] WBC (Bld) [#/Vol] 12.8 10*3/uL High 4.4-11.0 [facility] Comment on above: Performed By: #### L 400.0001 #### [facility] [address] [place], [address] Comprehensive Metabolic Prof ilon 01-17-2024 Albumin [Mass/Vol] 3.3 g/dL Normal 3.2-5.0 [facility] Comment on above: Performed By: #### L 400.0001 #### [facility] [address] [place], [address] Albumin/Globulin [Mass ratio] 0.8 {ratio} Low 0.9-2.4 [facility] Comment on above: Performed By: #### L 400.0001 #### [facility] [address] [place], [address] ALK P 110 U/L Normal 45-117 [facility] Comment on above: Performed By: #### L 400.0001 #### [facility] [address] [place], [address] ALT [Catalytic activity/Vol] 20 U/L Normal 13-56 [facility] Comment on above: Performed By: #### L 400.0001 #### [facility] [address] [place], [address] AST [Catalytic activity/Vol] 12 U/L Low 15-37 [facility] Comment on above: Performed By: #### L 400.0001 #### [facility] [address] [place], [address] Bilirubin [Mass/Vol] 0.70 mg/dL Normal 0.20-1.00 [facility] Comment on above: Result Comment: For patients on eltrombopag therapy, use of Dimension [place] TBIL is not recommended. Performed By: #### L 400.0001 #### [facility] [address] [place], [address] BUN/CRE 20.4 RATIO High 10-20 [facility] Comment on above: Performed By: #### L 400.0001 #### [facility] [address] [place], [address] CA,Total 9.1 mg/dL Normal 8.5-10.1 [facility] Comment on above: Performed By: #### L 400.0001 #### [facility] [address] [place], [address] Chloride [Moles/Vol] 102 mmol/L Normal 98-107 [facility] Comment on above: Performed By: #### L 400.0001 #### [facility] [address] [place], [address] CO2 [Moles/Vol] 26.0 mmol/L Normal 21.0-32.0 [facility] Comment on above: Performed By: #### L 400.0001 #### [facility] [address] [place], [address] Creatinine [Mass/Vol] 0.88 mg/dL Normal 0.55-1.[address] [facility] Comment on above: Result Comment: The validity of the calculated GFR GFRAA in patients over 70 years has not been determined. Clinical correlation is essential. Performed By: #### L 400.0001 #### [facility] [address] [place], [address] EST GFR - AA 81 mL/min Normal >60 [facility] Comment on above: Result Comment: Afri can [place] GFR Calc Performed By: #### L 400.0001 #### [facility] [address] [place], [address] GAP 8 Normal 5-15 [facility] Comment on above: Performed By: #### L 400.0001 #### [facility] [address] [place], [address] GFR/1.73 sq M.predicted among non-blacks MDRD (S/P/Bld) [Vol rate/Area] 67 mL/min/{1.73_m2} Normal >60 [facility] Comment on above: Result Comment: Non- GFR Calc Performed By: #### L 400.0001 #### [facility] [address] [place], [address] Globulin (S) [Mass/Vol] 4.0 g/dL Normal 2.2-4.2 [facility] Comment on above: Performed By: #### L 400.0001 #### [facility] [address] [place], [address] Glucose [Mass/Vol] 277 mg/dL High 74-106 [facility] Comment on above: Result Comment: Gluc ose result greater than or equal to 200 mg/dL suggests DIABETES MELLITUS per A.D.A. criteria. Performed By: #### L 400.0001 #### [facility] [address] [place], [address] Potassium [Moles/Vol] 4.4 mmol/L Normal 3.5-5.[address] [facility] Comment on above: Performed By: #### L 400.0001 #### [facility] [address] [place], [address] Sodium [Moles/Vol] 136 mmol/L Normal 136-145 [facility] Comment on above: Performed By: #### L 400.0001 #### [facility] [address] [place], [address] T PROT 7.3 g/dL Normal 6.4-8.2 [facility] Comment on above: Performed By: #### L 400.0001 #### [facility] [address] [place], [address] Urea nitrogen [Mass/Vol] 18 mg/dL Normal 7-18 [facility] Comment on above: Performed By: #### L 400.0001 #### [facility] [address] [place], [address] Free T3on 01-17-2024 Free T3 [Mass/Vol] 2.4 pg/mL Normal 2.18-3.98 [facility] Comment on above: Performed By: #### L 400.0001 #### [facility] [address] [place], [address] Hemoglobin A1con 01-17-2024 HbA1c (Bld) [Mass fraction] 10.8 % High 3.8-5.6 [facility] Comment on above: Result Comment: Norm al < 5.7 % Prediabetic 5.7 - 6.4 % Diabetic >or= 6.5 % Please note range changes. Performed By: #### L 400.0001 #### [facility] [address] [place], [address] Lipid Profileon 01-17-2024 Cholesterol [Mass/Vol] 143 mg/dL Normal 200 [facility] Comment on above: Result Comment: <200 mg/dL Desirable 200-240 mg/dL Borderline >240 mg/dL High Risk Performed By: #### L 400.0001 #### [facility] [address] [place], [address] Cholesterol in HDL [Mass/Vol] 54 mg/dL Normal [facility] Comment on above: Result Comment: The drugs N-Acetylcysteine and Metamizole may falsely depress this assay. Reference Range HDL <40 mg/dL Low HDL Cholesterol HDL >or= 60 mg/dL High HDL Cholesterol Performed By: #### L 400.0001 #### [facility] [address] [place], [address] Cholesterol in LDL [Mass/Vol] 53 mg/dL Normal 0-130 [facility] Comment on above: Performed By: #### L 400.0001 #### [facility] [address] [place], [address] Cholesterol in VLDL [Mass/Vol] 36 mg/dL Normal 5-40 [facility] Comment on above: Performed By: #### L 400.0001 #### [facility] [address] [place], [address] Triglyceride [Mass/Vol] 182 mg/dL Normal [facility] Comment on above: Result Comment: The drugs N-Acetylcysteine and Metamizole may falsely depress this assay. Serum Triglycerides Reference Interval Normal <150 mg/dL Borderline high 150 - 199 mg/dL High 200 - 499 mg/dL Very High > or = 500 mg/dL Performed By: #### L 400.0001 #### [facility] [address] [place], [address] Magnesiumon 01-17-2024 Magnesium [Mass/Vol] 2.1 mg/dL Normal 1.6-2.6 [facility] Comment on above: Performed By: #### L 400.0001 #### [facility] [address] [place], [address] T4 Free Directon 01-17-2024 T4 FREE DIRECT 1.16 ng/dL Normal 0.76-1.46 [facility] Comment on above: Performed By: #### L 400.0001 #### [facility] [address] [place], [address] Thyroid Stim Hormone (TSH)on 01-17-2024 TSH 3.800 uIU/mL High 0.358-3.740 [facility] Comment on above: Performed By: #### L 400.0001 #### [facility] [address] [place], [address] Vitamin D,25 Hydroxyon 01-16 Vitamin D 25-OH 10.2 ng/mL Normal [facility] Comment on above: Result Comment: Lucy min D 25(OH) Status Range Deficiency <20 ng/mL (50nmol/L) Insufficiency 20 - 30 ng/mL (50 - 75 nmol/L) Sufficiency 30 - 100 ng/mL (75 - 250 nmol/L) Toxicity >100 ng/mL (>250 nmol/L) Performed By: #### L 400.0001 #### [facility] [address] [place], [place], [id number] MR/BMS.IMBon 01-16-2024 MR/BMS.IMB [facility] [address] [place], [place] [address] OFFICE VISIT Date of Service: 01/16/24 MR#: [id number] Acct: [id number] Name: FELICITAS ALCANTARA Rep #: [id number] : 1950 Provider: Dr. Harish jose MD Age/Sex: 73/F Location: [facility] Status: Signed Intake Vital Signs 01/15/24 09:25 [...] Delivery Method room air Intake Visit Reasons: [facility] ER FU Chief Complaint: 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 ER fu Details: FELICITAS ALCANTARA, [...] she does (more content not included)... Normal [facility] 12 Lead EKGon 01-15-2024 12 Lead EKG [facility] Cardiovascular Services [address] [place] [address] 12 Lead EKG 01/15/24 0930 MR#: [id number] Acct: [id number] Name: FELICITAS ALCANTARA Rep #: [id number] : 1950 73 From: Cecilio Feliz MD [...] ECG Confirmed by CECILIO FELIZ MD ([id number]), slot editor ALLA LAINEZ ([id number]) on 01/17/2024 8:14:37 AM Referred By: JESUS/SIMONE Confirmed By: CECILIO FELIZ MD 11/01/813 Cecilio Feliz MD CC: Dr. Nathan Pritchard, DO; Dr. Harish Noel MD Signed Normal [facility] Basic Metabolic Profile (BMP )on 01-15-2024 BUN/CRE 18.8 RATIO Normal 01-04 [facility] Comment on above: Order Comment: 1Y Performed By: #### L 100.0100, L500.2500, L300.8000, L501.4020 #### [facility] [address] [place], [address] CA,Total 9.7 mg/dL Normal 8.5-10.1 [facility] Comment on above: Order Comment: 1Y Performed By: #### L 100.0100, L500.2500, L300.8000, L501.4020 #### [facility] [address] [place], [address] Chloride [Moles/Vol] 101 mmol/L Normal 98-107 [facility] Comment on above: Order Comment: 1Y Performed By: #### L 100.0100, L500.2500, L300.8000, L501.4020 #### [facility] [address] [place], [address] CO2 [Moles/Vol] 28.0 mmol/L Normal 21.0-32.0 [facility] Comment on above: Order Comment: 1Y Performed By: #### L 100.0100, L500.2500, L300.8000, L501.4020 #### [facility] [address] [place], [address] Creatinine [Mass/Vol] 0.91 mg/dL Normal 0.55-1.[address] [facility] Comment on above: Order Comment: 1Y Result Comment: The validity of the calculated GFR GFRAA in patients over 70 years has not been determined. Clinical correlation is essential. Performed By: #### L 100.0100, L500.2500, L300.8000, L501.4020 #### [facility] [address] [place], [address] ECRCL 63.57 ml/min Normal [facility] Comment on above: Order Comment: 1Y Performed By: #### L 100.0100, L500.2500, L300.8000, L501.4020 #### [facility] [address] [place], [address] EST GFR - AA 79 mL/min Normal >60 [facility] Comment on above: Order Comment: 1Y Result Comment: Afri can [place] GFR Calc Performed By: #### L 100.0100, L500.2500, L300.8000, L501.4020 #### [facility] [address] [place], [address] GAP 7 Normal 5-15 [facility] Comment on above: Order Comment: 1Y Performed By: #### L 100.0100, L500.2500, L300.8000, L501.4020 #### [facility] [address] [place], [address] GFR/1.73 sq M.predicted among non-blacks MDRD (S/P/Bld) [Vol rate/Area] 65 mL/min/{1.73_m2} Normal >60 [facility] Comment on above: Order Comment: 1Y Result Comment: Non- GFR Calc Performed By: #### L 100.0100, L500.2500, L300.8000, L501.4020 #### [facility] [address] [place], [address] Glucose [Mass/Vol] 231 mg/dL High 74-106 [facility] Comment on above: Order Comment: 1Y Result Comment: Gluc ose result greater than or equal to 200 mg/dL suggests DIABETES MELLITUS per A.D.A. criteria. Performed By: #### L 100.0100, L500.2500, L300.8000, L501.4020 #### [facility] [address] [place], [address] Potassium [Moles/Vol] 4.3 mmol/L Normal 3.5-5.[address] [facility] Comment on above: Order Comment: 1Y Performed By: #### L 100.0100, L500.2500, L300.8000, L501.4020 #### [facility] [address] [place], [address] Sodium [Moles/Vol] 136 mmol/L Normal 136-145 [facility] Comment on above: Order Comment: 1Y Performed By: #### L 100.0100, L500.2500, L300.8000, L501.4020 #### [facility] [address] [place], [address] Urea nitrogen [Mass/Vol] 17 mg/dL Normal 7-18 [facility] Comment on above: Order Comment: 1Y Performed By: #### L 100.0100, L500.2500, L300.8000, L501.4020 #### [facility] [address] [place], [address] CBC W/Diff, Automatedon 10-3 0-2024 Absolute Lymph 2.13 X10 3/uL Normal 0.83-4.51 [facility] Comment on above: Performed By: #### L 100.0100, L500.2500, L300.8000, L501.4020 #### [facility] [address] [place], [address] Absolute Neut 10.5 X10 3/uL High 2.0-7.7 [facility] Comment on above: Performed By: #### L 100.0100, L500.2500, L300.8000, L501.4020 #### [facility] [address] [place], [address] Basophils/100 WBC (Bld) 0.7 % Normal 0-1 [facility] Comment on above: Performed By: #### L 100.0100, L500.2500, L300.8000, L501.4020 #### [facility] [address] [place], [address] Eosinophils/100 WBC (Bld) 1.7 % Normal 0-5 [facility] Comment on above: Performed By: #### L 100.0100, L500.2500, L300.8000, L501.4020 #### [facility] [address] [place], [address] Erythrocyte distribution width (RBC) [Ratio] 13.0 % Normal 11.6-14.6 [facility] Comment on above: Performed By: #### L 100.0100, L500.2500, L300.8000, L501.4020 #### [facility] [address] [place], [address] Hematocrit (Bld) [Volume fraction] 45.9 % Normal 37-47 [facility] Comment on above: Performed By: #### L 100.0100, L500.2500, L300.8000, L501.4020 #### [facility] [address] [place], [address] Hemoglobin (Bld) [Mass/Vol] 15.2 g/dL High 12.0-15.0 [facility] Comment on above: Performed By: #### L 100.0100, L500.2500, L300.8000, L501.4020 #### [facility] [address] [place], [address] IG% 1.100 High 0.0-0.9 [facility] Comment on above: Result Comment: IG% - Immature Granulocytes (promyelocytes, myelocytes and metamyelocytes) > 1% indicates that a LEFT SHIFT is Present. Performed By: #### L 100.0100, L500.2500, L300.8000, L501.4020 #### [facility] [address] [place], [address] Lymphocytes/100 WBC (Bld) 15.1 % Low 19-41 [facility] Comment on above: Performed By: #### L 100.0100, L500.2500, L300.8000, L501.4020 #### [facility] [address] [place], [address] MCH (RBC) [Entitic mass] 29.9 pg Normal 27.0-32.0 [facility] Comment on above: Performed By: #### L 100.0100, L500.2500, L300.8000, L501.4020 #### [facility] [address] [place], [address] MCHC (RBC) [Mass/Vol] 33.1 g/dL Normal 32-[address] [facility] Comment on above: Performed By: #### L 100.0100, L500.2500, L300.8000, L501.4020 #### [facility] [address] [place], [address] MCV (RBC) [Entitic vol] 90.2 fL Normal 81-99 [facility] Comment on above: Performed By: #### L 100.0100, L500.2500, L300.8000, L501.4020 #### [facility] [address] [place], [address] Monocytes/100 WBC (Bld) 6.7 % Normal 0-10 [facility] Comment on above: Performed By: #### L 100.0100, L500.2500, L300.8000, L501.4020 #### [facility] [address] [place], [address] Neutrophils/100 WBC (Bld) 74.7 % High 47-70 [facility] Comment on above: Performed By: #### L 100.0100, L500.2500, L300.8000, L501.4020 #### [facility] [address] [place], [address] Nucleated RBC (Bld) [#/Vol] 0 10*3/uL Normal 0-5 [facility] Comment on above: Performed By: #### L 100.0100, L500.2500, L300.8000, L501.4020 #### [facility] [address] [place], [address] Platelet mean volume (Bld) [Entitic vol] 10.7 fL Normal 6.2-12.0 [facility] Comment on above: Performed By: #### L 100.0100, L500.2500, L300.8000, L501.4020 #### [facility] [address] [place], [address] Platelets (Bld) [#/Vol] 348 10*3/uL Normal 150-450 [facility] Comment on above: Performed By: #### L 100.0100, L500.2500, L300.8000, L501.4020 #### [facility] [address] [place], [address] RBC (Bld) [#/Vol] 5.09 10*6/uL Normal 4.2-5.4 [facility] Comment on above: Performed By: #### L 100.0100, L500.2500, L300.8000, L501.4020 #### [facility] [address] [place], [address] RDW SD 42.7 fl Normal 35.1-43.9 [facility] Comment on above: Performed By: #### L 100.0100, L500.2500, L300.8000, L501.4020 #### [facility] [address] [place], [address] WBC (Bld) [#/Vol] 14.1 10*3/uL High 4.4-11.0 [facility] Comment on above: Performed By: #### L 100.0100, L500.2500, L300.8000, L501.4020 #### [facility] [address] [place], [address] Chest 1 View (Portable)on Chest 1 View (Portable) [facility] Imaging Services [address] [place] [address] Chest 1 View (Portable) MR#: [id number] Acct: [id number] Name: FELICITAS ALCANTARA Rep #: [id number] : 1950 F 73 From: Hemanth Quinn MD PCP: Dr. Harish Noel MD Status: REG ER Study: Chest 1 View (Portable) Date of Exam: 01/15/24 Exam# [id number] Ordering Dr: Nathan Pritchard DO [id number] EXAM: XR CHEST, 1 VIEW CLINICAL INDICATION: [...] Nathan Pritchard DO; Dr. 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 Normal [facility] L501.4020on 01-15-2024 TROPONIN-I HS 9 pg/mL Normal 3.0-54.0 [facility] Comment on above: Result Comment: Plea se Note: New Test Units and Gender Specific Reference Ranges. For more information see Policy Stat Procedure [place] High Sensitivity Troponin (TNIH) and attachments. Performed By: #### L 400.0001 #### [facility] [address] [place], [address] L501.5425on 01-15-2024 TROPONIN-I HS 10 pg/mL Normal 3.0-54.0 [facility] Comment on above: Order Comment: 1Y Result Comment: Plea se Note: New Test Units and Gender Specific Reference Ranges. For more information see Policy Stat Procedure [place] High Sensitivity Troponin (TNIH) and attachments. Performed By: #### L 100.0100, L500.2500, L300.8000, L501.4020 #### [facility] [address] [place], [address] 12 Lead EKGon 09-03-2023 12 Lead EKG [facility] Cardiovascular Services [address] [place] [address] 12 Lead EKG 09/02/23 1636 MR#: [id number] Acct: [id number] Name: FELICITAS ALCANTARA Rep #: [id number] : 1950 72 From: Cecilio Feliz MD [...] by CECILIO FELIZ MD ([id number]), ALLA Vincent ([id number]) on 09/03/2023 11:26:35 AM Referred By: Confirmed By:CECILIO FELIZ MD 09/03/23 1126 Date Cecilio Feliz MD CC: Dr. Ravi Lamb MD; Dr. Harish Noel MD Signed [facility] 12 Lead EKG [facility] Cardiovascular Services [address] [place] [address] 12 Lead EKG 09/03/23 0638 MR#: [id number] Acct: [id number] Name: FELICITAS ALCANTARA Rep #: [id number] : 1950 72 From: Cecilio Feliz MD [...] Abnormal ECG Confirmed by CECILIO FELIZ MD ([id number]), ALLA Vincent ([id number]) on 09/05/2023 8:13:25 AM Referred By: JA Confirmed By:CECILIO FELIZ MD 09/05/23 0813 Date Cecilio Feliz MD CC: Dr. Ravi Lamb MD; Dr. Harish Noel MD Signed [facility] Abdomen/Pelvis W IV Cont ONL Yon 09-03-2023 Abdomen/Pelvis W IV Cont ONLY [facility] Imaging Services [address] [place], [place] [address] Abdomen/Pelvis W IV Cont ONLY MR#: [id number] Acct: [id number] Name: FELICITAS ALCANTARA Rep #: [id number] : 1950 F 72 From: Roel lopez MD PCP: Dr. Harish Noel MD Status: REG ER Study: Abdomen/Pelvis W IV Cont ONLY Date of Exam: Exam# [id number] Ordering Dr: Ravi Lamb MD [id number] STUDY: CT ABDOMEN AND PELVIS WITH CONTRAST [...] Ravi Lamb MD; Dr. Harish Noel MD Manager Corporate Marketing: Signed Normal [facility] Basic Metabolic Profile (BMP )on 09-03-2023 BUN/CRE 18.8 RATIO Normal 10-20 [facility] Comment on above: Order Comment: MAURISIO CTOR TO SPECIFY Performed By: #### L 400.0001 #### [facility] [address] [place], [address] CA,Total 9.7 mg/dL Normal 8.5-10.1 [facility] Comment on above: Order Comment: MAURISIO CTOR TO SPECIFY Performed By: #### L 400.0001 #### [facility] [address] [place], [address] Chloride [Moles/Vol] 98 mmol/L Normal 98-107 [facility] Comment on above: Order Comment: MAURISIO CTOR TO SPECIFY Performed By: #### L 400.0001 #### [facility] [address] [place], [address] CO2 [Moles/Vol] 26.0 mmol/L Normal 21.0-32.0 [facility] Comment on above: Order Comment: MAURISIO CTOR TO SPECIFY Performed By: #### L 400.0001 #### [facility] [address] [place], [address] Creatinine [Mass/Vol] 0.90 mg/dL Normal 0.55-1.[address] [facility] Comment on above: Order Comment: COLLE CTOR TO SPECIFY Result Comment: The validity of the calculated GFR GFRAA in patients over 70 years has not been determined. Clinical correlation is essential. Performed By: #### L 400.0001 #### [facility] [address] [place], [address] ECRCL 64.13 ml/min Normal [facility] Comment on above: Order Comment: MAURISIO DISLAOR TO SPECIFY Performed By: #### L 400.0001 #### [facility] [address] [place], [address] EST GFR - AA 79 mL/min Normal >60 [facility] Comment on above: Order Comment: MAURISIO DISLAOR TO SPECIFY Result Comment: Afri can [place] GFR Calc Performed By: #### L 400.0001 #### [facility] [address] [place], [address] GAP 7 Normal 5-15 [facility] Comment on above: Order Comment: MAURISIO WHITE TO SPECIFY Performed By: #### L 400.0001 #### [facility] [address] [place], [address] GFR/1.73 sq M.predicted among non-blacks MDRD (S/P/Bld) [Vol rate/Area] 65 mL/min/{1.73_m2} Normal >60 [facility] Comment on above: Order Comment: MAURISIO WHITE TO SPECIFY Result Comment: Non- GFR Calc Performed By: #### L 400.0001 #### [facility] [address] [place], [address] Glucose [Mass/Vol] 278 mg/dL High 74-106 [facility] Comment on above: Order Comment: MAURISIO DISLAOR TO SPECIFY Result Comment: Gluc ose result greater than or equal to 200 mg/dL suggests DIABETES MELLITUS per A.D.A. criteria. Performed By: #### L 400.0001 #### [facility] [address] [place], [address] Potassium [Moles/Vol] 4.1 mmol/L Normal 3.5-5.[address] [facility] Comment on above: Order Comment: MAURISIO CTOR TO SPECIFY Performed By: #### L 400.0001 #### [facility] [address] [place], [address] Sodium [Moles/Vol] 131 mmol/L Low 136-145 [facility] Comment on above: Order Comment: COLLE CTOR TO SPECIFY Performed By: #### L 400.0001 #### [facility] [address] [place], [address] Urea nitrogen [Mass/Vol] 17 mg/dL Normal 7-18 [facility] Comment on above: Order Comment: COLLE CTOR TO SPECIFY Performed By: #### L 400.0001 #### [facility] [address] [place], [address] Bedside Glucoseon 09-03-2023 FINGERSTICK GLU 295 mg/dL High 74-106 [facility] Comment on above: Result Comment: RIMMA ADRIAN OF PATIENT CARE PER NURSING PROTOCOL Performed By: #### L 100.0100, L500.2500, L300.8000, L501.4020 #### [facility] [address] [place], [address] CBC W/Diff, Automatedon - Absolute Lymph 2.10 X10 3/uL Normal 0.83-4.51 [facility] Comment on above: Performed By: #### L 400.0001 #### [facility] [address] [place], [address] Absolute Neut 15.2 X10 3/uL High 2.0-7.7 [facility] Comment on above: Performed By: #### L 400.0001 #### [facility] [address] [place], [address] Basophils/100 WBC (Bld) 0.4 % Normal 0-1 [facility] Comment on above: Performed By: #### L 400.0001 #### [facility] [address] [place], [address] Eosinophils/100 WBC (Bld) 0.4 % Normal 0-5 [facility] Comment on above: Performed By: #### L 400.0001 #### [facility] [address] [place], [address] Erythrocyte distribution width (RBC) [Ratio] 12.8 % Normal 11.6-14.6 [facility] Comment on above: Performed By: #### L 400.0001 #### [facility] [address] [place], [address] Hematocrit (Bld) [Volume fraction] 50.1 % High 37-47 [facility] Comment on above: Performed By: #### L 400.0001 #### [facility] [address] [place], [address] Hemoglobin (Bld) [Mass/Vol] 16.0 g/dL High 12.0-15.0 [facility] Comment on above: Performed By: #### L 400.0001 #### [facility] [address] [place], [address] IG% 0.700 Normal 0.0-0.9 [facility] Comment on above: Result Comment: IG% - Immature Granulocytes (promyelocytes, myelocytes and metamyelocytes) > 1% indicates that a LEFT SHIFT is Present. Performed By: #### L 400.0001 #### [facility] [address] [place], [address] Lymphocytes/100 WBC (Bld) 11.4 % Low 19-41 [facility] Comment on above: Performed By: #### L 400.0001 #### [facility] [address] [place], [address] MCH (RBC) [Entitic mass] 29.1 pg Normal 27.0-32.0 [facility] Comment on above: Performed By: #### L 400.0001 #### [facility] [address] [place], [address] MCHC (RBC) [Mass/Vol] 31.9 g/dL Low 32-[address] [facility] Comment on above: Performed By: #### L 400.0001 #### [facility] [address] [place], [address] MCV (RBC) [Entitic vol] 91.1 fL Normal 81-99 [facility] Comment on above: Performed By: #### L 400.0001 #### [facility] [address] [place], [address] Monocytes/100 WBC (Bld) 4.8 % Normal 0-10 [facility] Comment on above: Performed By: #### L 400.0001 #### [facility] [address] [place], [address] Neutrophils/100 WBC (Bld) 82.3 % High 47-70 [facility] Comment on above: Performed By: #### L 400.0001 #### [facility] [address] [place], [address] Nucleated RBC (Bld) [#/Vol] 0 10*3/uL Normal 0-5 [facility] Comment on above: Performed By: #### L 400.0001 #### [facility] [address] [place], [address] Platelet mean volume (Bld) [Entitic vol] 10.7 fL Normal 6.2-12.0 [facility] Comment on above: Performed By: #### L 400.0001 #### [facility] [address] [place], [address] Platelets (Bld) [#/Vol] 333 10*3/uL Normal 150-450 [facility] Comment on above: Performed By: #### L 400.0001 #### [facility] [address] [place], [address] RBC (Bld) [#/Vol] 5.50 10*6/uL High 4.2-5.4 [facility] Comment on above: Performed By: #### L 400.0001 #### [facility] [address] [place], [address] RDW SD 42.5 fl Normal 35.1-43.9 [facility] Comment on above: Performed By: #### L 400.0001 #### [facility] [address] [place], [address] WBC (Bld) [#/Vol] 18.4 10*3/uL High 4.4-11.0 [facility] Comment on above: Performed By: #### L 400.0001 #### [facility] [address] [place], [address] Chest 1 View (Portable)on Chest 1 View (Portable) [facility] Imaging Services [address] [place] [address] Chest 1 View (Portable) MR#: [id number] Acct: [id number] Name: FELICITAS ALCANTARA Rep #: [id number] : 1950 F 72 From: Roel lopez MD PCP: Dr. Harish Noel MD Status: [facility] ER Study: Chest 1 View (Portable) Date of Exam: 09/03/23 Exam# [id number] Ordering Dr: Ravi Lamb [place] [id number] STUDY: X-RAY CHEST REASON FOR EXAM: Female, [...] acute abnormality is seen. Electronically Signed: Roel oMreno MD at 8:33 EDT Reading Location ID and State: [address] [place] [address] , Service support , CC: Dr. Ravi Lamb MD; Dr. 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 Normal [facility] L501.4020on 09-03-2023 TROPONIN-I HS 14 pg/mL Normal 3.0-54.0 [facility] Comment on above: Order Comment: 'TROP ' Serial specimen #1, #2 or #3: 1 Result Comment: Plea se Note: New Test Units and Gender Specific Reference Ranges. For more information see Policy Stat Procedure [place] High Sensitivity Troponin (TNIH) and attachments. Performed By: #### L 100.0100, L500.2500, L300.8000, L501.4020 #### [facility] [address] [place], [address] Urinalysis, Completeon 09-02 BACTERIA 2+ /hpf Normal None Seen [facility] Comment on above: Order Comment: MAURISIO CTOR TO SPECIFY Performed By: #### L 400.0001 #### [facility] [address] [place], [address] EPI,SQUAMOUS 0-5 SEEN Normal 5-10 [facility] Comment on above: Order Comment: MAURISIO CTOR TO SPECIFY Performed By: #### L 400.0001 #### [facility] [address] [place], [address] WBC 0-5 SEEN Normal 0-5 [facility] Comment on above: Order Comment: MAURISIO CTOR TO SPECIFY Performed By: #### L 400.0001 #### [facility] [address] [place], [address] Mucus Ql (Urine sed) 0 SEEN Normal [facility] Comment on above: Order Comment: MAURISIO CTOR TO SPECIFY Performed By: #### L 400.0001 #### [facility] [address] [place], [address] RBC 0 SEEN Normal 0-5 [facility] Comment on above: Order Comment: MAURISIO CTOR TO SPECIFY Performed By: #### L 400.0001 #### [facility] [address] [place], [address] Basic Metabolic Profile (BMP )on 09-02-2023 BUN/CRE 20.0 RATIO Normal 10-20 [facility] Comment on above: Order Comment: 'TROP ' Serial specimen #1, #2 or #3: 1 Performed By: #### L 100.0100, L500.2500, L300.8000, L501.4020 #### [facility] [address] [place], [address] CA,Total 9.4 mg/dL Normal 8.5-10.1 [facility] Comment on above: Order Comment: 'TROP ' Serial specimen #1, #2 or #3: 1 Performed By: #### L 100.0100, L500.2500, L300.8000, L501.4020 #### [facility] [address] [place], [address] Chloride [Moles/Vol] 101 mmol/L Normal 98-107 [facility] Comment on above: Order Comment: 'TROP ' Serial specimen #1, #2 or #3: 1 Performed By: #### L 100.0100, L500.2500, L300.8000, L501.4020 #### [facility] [address] [place], [address] CO2 [Moles/Vol] 27.0 mmol/L Normal 21.0-32.0 [facility] Comment on above: Order Comment: 'TROP ' Serial specimen #1, #2 or #3: 1 Performed By: #### L 100.0100, L500.2500, L300.8000, L501.4020 #### [facility] [address] [place], [address] Creatinine [Mass/Vol] 0.95 mg/dL Normal 0.55-1.[address] [facility] Comment on above: Order Comment: 'TROP ' Serial specimen #1, #2 or #3: 1 Result Comment: The validity of the calculated GFR GFRAA in patients over 70 years has not been determined. Clinical correlation is essential. Performed By: #### L 100.0100, L500.2500, L300.8000, L501.4020 #### [facility] [address] [place], [address] ECRCL 61.67 ml/min Normal [facility] Comment on above: Order Comment: 'TROP ' Serial specimen #1, #2 or #3: 1 Performed By: #### L 100.0100, L500.2500, L300.8000, L501.4020 #### [facility] [address] [place], [address] EST GFR - AA 74 mL/min Normal >60 [facility] Comment on above: Order Comment: 'TROP ' Serial specimen #1, #2 or #3: 1 Result Comment: Afri can [place] GFR Calc Performed By: #### L 100.0100, L500.2500, L300.8000, L501.4020 #### [facility] [address] [place], [address] GAP 8 Normal 5-15 [facility] Comment on above: Order Comment: 'TROP ' Serial specimen #1, #2 or #3: 1 Performed By: #### L 100.0100, L500.2500, L300.8000, L501.4020 #### [facility] [address] [place], [address] GFR/1.73 sq M.predicted among non-blacks MDRD (S/P/Bld) [Vol rate/Area] 62 mL/min/{1.73_m2} Normal >60 [facility] Comment on above: Order Comment: 'TROP ' Serial specimen #1, #2 or #3: 1 Result Comment: Non- GFR Calc Performed By: #### L 100.0100, L500.2500, L300.8000, L501.4020 #### [facility] [address] [place], [address] Glucose [Mass/Vol] 276 mg/dL High 74-106 [facility] Comment on above: Order Comment: 'TROP ' Serial specimen #1, #2 or #3: 1 Result Comment: Gluc ose result greater than or equal to 200 mg/dL suggests DIABETES MELLITUS per A.D.A. criteria. Performed By: #### L 100.0100, L500.2500, L300.8000, L501.4020 #### [facility] [address] [place], [address] Potassium [Moles/Vol] 4.2 mmol/L Normal 3.5-5.[address] [facility] Comment on above: Order Comment: 'TROP ' Serial specimen #1, #2 or #3: 1 Performed By: #### L 100.0100, L500.2500, L300.8000, L501.4020 #### [facility] [address] [place], [address] Sodium [Moles/Vol] 136 mmol/L Normal 136-145 [facility] Comment on above: Order Comment: 'TROP ' Serial specimen #1, #2 or #3: 1 Performed By: #### L 100.0100, L500.2500, L300.8000, L501.4020 #### [facility] [address] [place], [address] Urea nitrogen [Mass/Vol] 19 mg/dL High 7-18 [facility] Comment on above: Order Comment: 'TROP ' Serial specimen #1, #2 or #3: 1 Performed By: #### L 100.0100, L500.2500, L300.8000, L501.4020 #### [facility] [address] [place], [address] CBC W/Diff, Automatedon 06-1 -2023 Absolute Lymph 1.95 X10 3/uL Normal 0.83-4.51 [facility] Comment on above: Performed By: #### L 100.0100, L500.2500, L300.8000, L501.4020 #### [facility] [address] [place], [address] Absolute Neut 10.4 X10 3/uL High 2.0-7.7 [facility] Comment on above: Performed By: #### L 100.0100, L500.2500, L300.8000, L501.4020 #### [facility] [address] [place], [address] Basophils/100 WBC (Bld) 0.6 % Normal 0-1 [facility] Comment on above: Performed By: #### L 100.0100, L500.2500, L300.8000, L501.4020 #### [facility] [address] [place], [address] Eosinophils/100 WBC (Bld) 2.0 % Normal 0-5 [facility] Comment on above: Performed By: #### L 100.0100, L500.2500, L300.8000, L501.4020 #### [facility] [address] [place], [address] Erythrocyte distribution width (RBC) [Ratio] 12.8 % Normal 11.6-14.6 [facility] Comment on above: Performed By: #### L 100.0100, L500.2500, L300.8000, L501.4020 #### [facility] [address] [place], [address] Hematocrit (Bld) [Volume fraction] 46.8 % Normal 37-47 [facility] Comment on above: Performed By: #### L 100.0100, L500.2500, L300.8000, L501.4020 #### [facility] [address] [place], [address] Hemoglobin (Bld) [Mass/Vol] 15.1 g/dL High 12.0-15.0 [facility] Comment on above: Performed By: #### L 100.0100, L500.2500, L300.8000, L501.4020 #### [facility] [address] [place], [address] IG% 0.700 Normal 0.0-0.9 [facility] Comment on above: Result Comment: IG% - Immature Granulocytes (promyelocytes, myelocytes and metamyelocytes) > 1% indicates that a LEFT SHIFT is Present. Performed By: #### L 100.0100, L500.2500, L300.8000, L501.4020 #### [facility] [address] [place], [address] Lymphocytes/100 WBC (Bld) 14.3 % Low 19-41 [facility] Comment on above: Performed By: #### L 100.0100, L500.2500, L300.8000, L501.4020 #### [facility] [address] [place], [address] MCH (RBC) [Entitic mass] 29.2 pg Normal 27.0-32.0 [facility] Comment on above: Performed By: #### L 100.0100, L500.2500, L300.8000, L501.4020 #### [facility] [address] [place], [address] MCHC (RBC) [Mass/Vol] 32.3 g/dL Normal 32-[address] [facility] Comment on above: Performed By: #### L 100.0100, L500.2500, L300.8000, L501.4020 #### [facility] [address] [place], [address] MCV (RBC) [Entitic vol] 90.3 fL Normal 81-99 [facility] Comment on above: Performed By: #### L 100.0100, L500.2500, L300.8000, L501.4020 #### [facility] [address] [place], [address] Monocytes/100 WBC (Bld) 6.0 % Normal 0-10 [facility] Comment on above: Performed By: #### L 100.0100, L500.2500, L300.8000, L501.4020 #### [facility] [address] [place], [address] Neutrophils/100 WBC (Bld) 76.4 % High 47-70 [facility] Comment on above: Performed By: #### L 100.0100, L500.2500, L300.8000, L501.4020 #### [facility] [address] [place], [address] Nucleated RBC (Bld) [#/Vol] 0 10*3/uL Normal 0-5 [facility] Comment on above: Performed By: #### L 100.0100, L500.2500, L300.8000, L501.4020 #### [facility] [address] [place], [address] Platelet mean volume (Bld) [Entitic vol] 10.8 fL Normal 6.2-12.0 [facility] Comment on above: Performed By: #### L 100.0100, L500.2500, L300.8000, L501.4020 #### [facility] [address] [place], [address] Platelets (Bld) [#/Vol] 309 10*3/uL Normal 150-450 [facility] Comment on above: Performed By: #### L 100.0100, L500.2500, L300.8000, L501.4020 #### [facility] [address] [place], [address] RBC (Bld) [#/Vol] 5.18 10*6/uL Normal 4.2-5.4 [facility] Comment on above: Performed By: #### L 100.0100, L500.2500, L300.8000, L501.4020 #### [facility] [address] [place], [address] RDW SD 42.4 fl Normal 35.1-43.9 [facility] Comment on above: Performed By: #### L 100.0100, L500.2500, L300.8000, L501.4020 #### [facility] [address] [place], [address] WBC (Bld) [#/Vol] 13.6 10*3/uL High 4.4-11.0 [facility] Comment on above: Performed By: #### L 100.0100, L500.2500, L300.8000, L501.4020 #### [facility] [address] [place], [address] Chest PA and Lateralon 09-01 Chest PA and Lateral [facility] Imaging Services [address] [place] [address] Chest PA and Lateral MR#: [id number] Acct: [id number] Name: FELICITAS ALCANTARA Rep #: [id number] : 1950 F 72 From: Malachi Lindsay MD PCP: Dr. Harish Noel MD Status: REG ER Study: Chest PA and Lateral Date of Exam: 09/02/23 Exam# [id number] Ordering Dr: Nathan Pritchard DO [id number] STUDY: X-RAY CHEST REASON FOR EXAM: Female, [...] Nathan Pritchard DO; Dr. Harish Noel MD Manager Corporate Marketing: Signed Normal [facility] D-Dimer Quantitative (DVT/PE )on 09-02-2023 D-DIMER QUANT 0.40 FEU/ug/m Normal 0.27-0.49 [facility] Comment on above: Result Comment: NORM AL D-Dimer level (<0.50) indicates no DVT or PE. Performed By: #### L 100.0100, L500.2500, L300.8000, L501.4020 #### [facility] [address] [facility] [place], [address] Emergency Department Summary on 09-02-2023 Emergency Department Summary [facility] Medical Records Department [address] [place] [address] Emergency Department Summary 09/02/23 MR#: [id number] Acct: [id number] Name: FELICITAS ALCANTARA Rep #: [id number] : 1950 72 From: Nathan Pritchard DO [...] to some dizziness and headache. [facility] Medical History History of left heart catheterization (LHC) ( 09/05/21) Abnormal nuclear stress test Dyspnea on exertion Mass of lip Elevated WBC count History of DVT (deep vein thrombosis) Presence of stent in coronary artery ( 04/10/16) History of non-ST elevation myocardial infarction (NSTEMI) Cardiogenic shock Type 2 diabetes mellitus Atherosclerotic heart disease of [place] coronary artery without angina pectoris Essential hypertension [...] 17:24 Temperatur (more content not included)... Normal [facility] L501.4020on 09-02-2023 TROPONIN-I HS 12 pg/mL Normal 3.0-54.0 [facility] Comment on above: Order Comment: 'TROP ' Serial specimen #1, #2 or #3: 1 Result Comment: Carlton rice Note: New Test Units and Gender Specific Reference Ranges. For more information see Policy Stat Procedure [place] High Sensitivity Troponin (TNIH) and attachments. Performed By: #### L 100.0100, L500.2500, L300.8000, L501.4020 #### [facility] [address] [place], [address] Urinalysis, Completeon 09-01 EPI,SQUAMOUS 0-5 SEEN Normal 5-10 [facility] Comment on above: Order Comment: MAURISIO WHITE TO SPECIFY Performed By: #### L 400.0001 #### [facility] [address] [place], [address] BACTERIA 0 SEEN Normal None Seen [facility] Comment on above: Order Comment: COLLE CTOR TO SPECIFY Performed By: #### L 400.0001 #### [facility] [address] [place], [address] Mucus Ql (Urine sed) 0 SEEN Normal [facility] Comment on above: Order Comment: COLLE CTOR TO SPECIFY Performed By: #### L 400.0001 #### [facility] [address] [place], [address] RBC 0 SEEN Normal 0-5 [facility] Comment on above: Order Comment: COLLE CTOR TO SPECIFY Performed By: #### L 400.0001 #### [facility] [address] [place], [address] WBC 0 SEEN Normal 0-5 [facility] Comment on above: Order Comment: COLLE CTOR TO SPECIFY Performed By: #### L 400.0001 #### [facility] [address] [place], [address] MR/BMS.Bon 08-05-2023 MR/BMS.[facility] [address] [place] [address] OFFICE VISIT Date of Service: 08/05/23 MR#: [id number] Acct: [id number] Name: FELICITAS ALCANTARA Rep #: [id number] : 1950 Provider: Dr. Harish jose MD Age/Sex: 72/F Location: [facility] Status: Signed Intake Vital Signs 02/04/23 [...] 6 M FU Chief Complaint: 6m f/u [employer] Required: No Accompanied by: Self Is patient [...] 2 diabetes mellitus Atherosclerotic heart disease of [place] coronary artery without angina pectoris Essential hypertension [...] She has been following with cardiology at [place]. She is only on carvedilol and clopidogrel [...] clear thyrom (more content not included)... Normal [facility] Absolute lymphocyte countOrd ered By: Dr. Noel on 06-11-2022 Lymphocytes Auto (Unsp spec) [#/Vol] 3.11 10*3/uL 0.83-4.51 [facility] Basophil percentageOrdered B y: Dr. Noel on 06-11-2022 Basophils/100 WBC (Bld) 0.6 % 0-1 [facility] Bilirubin [Mass/Vol] 0.60 mg/dL 0.20-1.00 [facility] Comment on above: For patients on eltr ombopag therapy, use of Dimension [place] TBIL is not recommended. Chloride [Moles/Vol] 102 mmol/L 98-107 [facility] Eosinophils/100 WBC (Bld) 2.2 % 0-5 [facility] Glucose [Mass/Vol] 173 mg/dL 74-106 [facility] Comment on above: Fasting Glucose resu lt greater than or equal to 126 mg/dL suggests DIABETES MELLITUS per A.D.A. criteria. Neutrophils (Bld) [#/Vol] 9.5 10*3/uL 2.0-7.7 [facility] Neutrophils/100 WBC (Bld) 67.2 % 47-70 [facility] Potassium [Moles/Vol] 4.2 mmol/L 3.5-5.[address] [facility] Protein [Mass/Vol] 7.5 g/dL 6.4-8.2 [facility] Sodium [Moles/Vol] 135 mmol/L 136-145 [facility] WBC (Bld) [#/Vol] 14.0 10*3/uL 4.4-11.0 [facility] Basophil percentageOrdered B y: Rustam Francois on 06-11-2022 Cholesterol [Mass/Vol] 158 mg/dL <200 [facility] Comment on above: <200 mg/dL Desirable 200-240 mg/dL Borderline >240 mg/dL High Risk Triglyceride [Mass/Vol] 212 mg/dL <199 [facility] Comment on above: The drugs N-Acetylcy steine and Metamizole may falsely depress this assay.Serum Triglycerides Reference Interval Normal <150 mg/dL Borderline high 150 - 199 mg/dL High 200 - 499 mg/dL Very High > or = 500 mg/dL Blood erythrocytes count (nu mber/volume)Ordered By: Dr. Noel on 06-11-2022 RBC (Bld) [#/Vol] 5.01 10*6/uL 4.2-5.4 [facility] Blood hemoglobin measurement (mass/volume)Ordered By: Dr. Noel on 06-11-2022 Hemoglobin (Bld) [Mass/Vol] 14.6 g/dL 12.0-15.0 [facility] Blood lymphocytes/100 leukoc ytesOrdered By: Dr. Noel on 06-11-2022 Lymphocytes/100 WBC (Bld) 22.2 % 19-41 [facility] Blood monocytes/100 leukocyt esOrdered By: Dr. Noel on 06-11-2022 Monocytes/100 WBC (Bld) 7.0 % 0-10 [facility] Blood platelet mean volumeOr dered By: Dr. Noel on 06-11-2022 Platelet mean volume (Bld) [Entitic vol] 10.5 fL 6.2-12.0 [facility] Determination of erythrocyte mean corpuscular volume (MCV)Ordered By: Dr. Noel on 06-11-2022 MCV (RBC) [Entitic vol] 89.6 fL 81-99 [facility] Direct bilirubinOrdered By: Dr. Noel on 06-11-2022 Bilirubin.direct [Mass/Vol] 0.16 mg/dL 0.00-0.30 [facility] Hematocrit Auto (Bld) [Volum e fraction]Ordered By: Dr. Noel on 06-11-2022 Hematocrit (Bld) [Volume fraction] 44.9 % 37-47 [facility] - Chemistry and C hemistry - challengeOrdered By: Dr. Noel on 06-11-2022 ALP [Catalytic activity/Vol] 98 U/L 45-117 [facility] ALT [Catalytic activity/Vol] 25 U/L 13-56 [facility] CO2 [Moles/Vol] 28.0 mmol/L 21.0-32.0 [facility] Cobalamin (Vitamin B12) [Mass/Vol] 296 pg/mL 211-911 [facility] Free T4 [Mass/Vol] 1.03 ng/dL 0.76-1.46 [facility] Globulin (S) [Mass/Vol] 4.2 g/dL 2.2-4.2 [facility] Urea nitrogen/Creatinine [Mass ratio] 21.3 mg/mg 10-20 [facility] - Hematology and Cell countsOrdered By: Dr. Noel on 06-11-2022 Erythrocyte distribution width (RBC) [Entitic vol] 46.9 fL 35.1-43.9 [facility] Erythrocyte distribution width (RBC) [Ratio] 14.3 % 11.6-14.6 [facility] Immature granulocytes/100 WBC (Bld) 0.800 % 0.0-0.9 [facility] Comment on above: IG% - Immature Granu locytes (promyelocytes, myelocytes and metamyelocytes) > 1% indicates that a LEFT SHIFT is Present. MCH (RBC) [Entitic mass] 29.1 pg 27.0-32.0 [facility] Nucleated RBC/100 WBC (Bld) [Ratio] 0 % 0-5 [facility] MCHC Auto (RBC) [Mass/Vol]Or dered By: Dr. Noel on 06-11-2022 MCHC (RBC) [Mass/Vol] 32.5 g/dL 32-[address] [facility] No Panel InformationOrdered By: Dr. Noel on 06-11-2022 Estimated GFR (MDRD) Amer 80 mL/min >60 [facility] Comment on above: GFR Calc Estimated GFR (MDRD) Non-Af Amer 66 mL/min >60 [facility] Comment on above: Non- GFR Calc Free Triiodothyronine (T3) pg/dL 2.6 pg/mL 2.18-3.98 [facility] Thyroid Stimulating Hormone (TSH) 8.13 uIU/mL 0.358-3.74 [facility] Vitamin D 25-Hydroxy 24.6 ng/mL [facility] Comment on above: Vitamin D 25(OH) Sta tus Range Deficiency <20 ng/mL (50nmol/L) Insufficiency 20 - 30 ng/mL (50 - 75 nmol/L) Sufficiency 30 - 100 ng/mL (75 - 250 nmol/L) Toxicity >100 ng/mL (>250 nmol/L) Platelets bldOrdered By: Dr. Noel on 06-11-2022 Platelets (Bld) [#/Vol] 316 10*3/uL 150-450 [facility] Serum or plasma albumin betsy urement (mass/volume)Ordered By: Dr. Noel on 06-11-2022 Albumin [Mass/Vol] 3.3 g/dL 3.2-5.0 [facility] Serum or plasma albumin/glob ulin mass ratioOrdered By: Dr. Noel on 06-11-2022 Albumin/Globulin [Mass ratio] 0.8 {ratio} 0.9-2.4 [facility] Serum or plasma calcium betsy urement (mass/volume)Ordered By: Dr. Noel on 06-11-2022 Calcium [Mass/Vol] 9.1 mg/dL 8.5-10.1 [facility] Serum or plasma cholesterol in HDL measurement (mass/volume)Ordered By: Rustam Francois on 06-11-2022 Cholesterol in HDL [Mass/Vol] 51 mg/dL >40 [facility] Comment on above: The drugs N-Acetylcy steine and Metamizole may falsely depress this assay. Reference Range HDL <40 mg/dL Low HDL Cholesterol HDL >or= 60 mg/dL High HDL Cholesterol Serum or plasma cholesterol in VLDL measurement (mass/volume)Ordered By: Rustam Francois on 06-11-2022 Cholesterol in VLDL [Mass/Vol] 42 mg/dL 5-40 [facility] Serum or plasma creatinine m easurement (mass/volume)Ordered [...] Cholesterol in LDL [Mass/Vol] 65 mg/dL 0-130 [facility] Serum or plasma urea nitroge n measurement (mass/volume)Ordered By: Dr. Noel on 06-11-2022 Urea nitrogen [Mass/Vol] 19 mg/dL 7-18 [facility] Thin prep Papanicolaou smear with manual screeningOrdered By: Dr. Noel on 06-11-2022 Thin prep Papanicolaou smear with manual screening 19 U/L 15-37 [facility] Thin prep Papanicolaou smear with manual screening 5 5-15 [facility] - Hematology and Cell countson 05-16-2022 HbA1c (Bld) [Mass fraction] 10.0 % 4.2-6.3 [facility] Absolute lymphocyte counton 01-21-2022 Lymphocytes Auto (Unsp spec) [#/Vol] 2.10 10*3/uL 0.83-4.51 [facility] Work Phone: Basophil percentageon 2021 Basophils/100 WBC (Bld) 0.6 % 0-1 [facility] Work Phone: Chloride [Moles/Vol] 98 mmol/L 98-107 [facility] Work Phone: Eosinophils/100 WBC (Bld) 1.8 % 0-5 [facility] Work Phone: Glucose [Mass/Vol] 208 mg/dL 74-106 [facility] Work Phone: Comment on above: Glucose result great er than or equal to 200 mg/dLsuggests DIABETES MELLITUS per A.D.A. criteria. Neutrophils (Bld) [#/Vol] 12.6 10*3/uL 2.0-7.7 [facility] Work Phone: Neutrophils/100 WBC (Bld) 77.5 % 47-70 [facility] Work Phone: Potassium [Moles/Vol] 4.1 mmol/L 3.5-5.[address] [facility] Work Phone: Sodium [Moles/Vol] 134 mmol/L 136-145 [facility] Work Phone: WBC (Bld) [#/Vol] 16.3 10*3/uL 4.4-11.0 [facility]: Blood erythrocytes count (nu mber/volume)on 01-21-2022 RBC (Bld) [#/Vol] 4.75 10*6/uL 4.2-5.4 [facility] Work [facility]: Blood hemoglobin measurement (mass/volume)on 01-21-2022 Hemoglobin (Bld) [Mass/Vol] 13.6 g/dL 12.0-15.0 [facility] Work Phone: Blood lymphocytes/100 leukoc yteson 01-21-2022 Lymphocytes/100 WBC (Bld) 12.9 % 19-41 [facility] Work Phone: Blood monocytes/100 leukocyt eson 01-21-2022 Monocytes/100 WBC (Bld) 6.2 % 0-10 [facility] Work Phone: Blood platelet mean volumeon 01-21-2022 Platelet mean volume (Bld) [Entitic vol] 10.3 fL 6.2-12.0 [facility] Work Phone: Determination of erythrocyte mean corpuscular volume (MCV)on 01-21-2022 MCV (RBC) [Entitic vol] 90.9 fL 81-99 [facility] Work Phone: Glucose Glucometer (BldC) [M ass/Vol]on 01-21-2022 Glucose [Mass/Vol] 215 mg/dL 74-106 [facility] Work Phone: Comment on above: MANAGEMENT OF PATIEN T CARE PER NURSING PROTOCOL Hematocrit Auto (Bld) [Volum e fraction]on 01-21-2022 Hematocrit (Bld) [Volume fraction] 43.2 % 37-47 [facility] Work Phone: Laboratory - Chemistry and C hemistry - challengeon 01-21-2022 CO2 [Moles/Vol] 29.0 mmol/L 21.0-32.0 [facility] Work Phone: Urea nitrogen/Creatinine [Mass ratio] 18.6 mg/mg 10-20 [facility] Work Phone: [phone] Laboratory - Hematology and Cell countson 01-21-2022 Erythrocyte distribution width (RBC) [Entitic vol] 42.5 fL 35.1-43.9 [facility] Work Phone: [phone] Erythrocyte distribution width (RBC) [Ratio] 12.8 % 11.6-14.6 [facility] Work Phone: Immature granulocytes/100 WBC (Bld) 1.000 % 0.0-0.9 [facility] Work Phone: Comment on above: IG% - Immature Granu locytes (promyelocytes, myelocytes and metamyelocytes) > 1% indicates that a LEFT SHIFT is Present. MCH (RBC) [Entitic mass] 28.6 pg 27.0-32.0 [facility] Work Phone: Nucleated RBC/100 WBC (Bld) [Ratio] 0 % 0-5 [facility] Work Phone: MCHC Auto (RBC) [Mass/Vol]on 01-21-2022 MCHC (RBC) [Mass/Vol] 31.5 g/dL 32-[address] [facility] Work Phone: No Panel Informationon 01-21 D-Dimer Quantitative (PE/DVT) 1.38 FEU/ug/m 0.27-0.49 [facility] Work Phone: Comment on above: D-Dimer ELEVATED (>0 .49): Additional studies and clinicalassessments are indicated to conclude diagnosis of:Deep Vein Thrombosis (DVT) or Pulmonary Embolism (PE)CRITICAL VALUE VERIFIED. CALLED TO JEWELL RODRIGEZ01/21/22 164O[place]io Woods.RESULTS READ BACK BY SAME . Estimated Creatinine Clearance Calc 45.50 ml/min [facility] Work Phone: Estimated GFR (MDRD) Amer 78 mL/min >60 [facility] Work Phone: Comment on above: GFR Calc Estimated GFR (MDRD) Non-Af Amer 65 mL/min >60 [facility] Work Phone: Comment on above: Non- GFR Calc Troponin I High Sensitivity 17 pg/mL 3.0-54.0 [facility] Work Phone: Comment on above: Please Note: [place] t Units and Gender Specific Reference Ranges. For more information see Policy Stat Procedure [place] High Sensitivity Troponin (TNIH) and attachments. Platelets bldon 01-21-2022 Platelets (Bld) [#/Vol] 374 10*3/uL 150-450 [facility] Work Phone: Serum or plasma calcium betsy urement (mass/volume)on 01-21-2022 Calcium [Mass/Vol] 10.3 mg/dL 8.5-10.1 [facility] Work Phone: Serum or plasma creatinine m easurement (mass/volume)on 01-21-2022 Creatinine [Mass/Vol] 0.91 mg/dL 0.55-1.[address] [facility] Work Phone: Comment on above: The validity of the calculated GFR & GFRAA in patients over 70 years has not been determined. Clinical correlation is essential. Serum or plasma urea nitroge n measurement (mass/volume)on 01-21-2022 Urea nitrogen [Mass/Vol] 17 mg/dL 7-18 [facility] Work Phone: Thin prep Papanicolaou smear with manual screeningon 01-21-2022 Thin prep Papanicolaou smear with manual screening 7 5-15 [facility] Work Phone: [phone] Basophil percentageon 2021 Bilirubin [Mass/Vol] 0.50 mg/dL 0.20-1.00 [facility] Work Phone: Comment on above: For patients on eltr ombopag therapy, use of Dimension [place] TBIL is not recommended. Chloride [Moles/Vol] 102 mmol/L 98-107 [facility] Work Phone: [phone] Glucose [Mass/Vol] 109 mg/dL 74-106 [facility] Work Phone: Comment on above: Fasting Glucose resu lt from 100 to 125 mg/dL suggests IMPAIRED HOMEOSTASIS per A.D.A. criteria. Potassium [Moles/Vol] 4.2 mmol/L 3.5-5.[address] [facility] Work Phone: [phone] Protein [Mass/Vol] 7.6 g/dL 6.4-8.2 [facility] Work Phone: [phone] Sodium [Moles/Vol] 136 mmol/L 136-145 [facility] Work Phone: Laboratory - Chemistry and C hemistry - challengeon 01-11-2022 ALP [Catalytic activity/Vol] 94 U/L 45-117 [facility] Work Phone: ALT [Catalytic activity/Vol] 20 U/L 13-56 [facility] Work Phone: [phone] CO2 [Moles/Vol] 29.0 mmol/L 21.0-32.0 [facility] Work Phone: [phone] Free T4 [Mass/Vol] 0.90 ng/dL 0.76-1.46 [facility] Work Phone: Globulin (S) [Mass/Vol] 4.2 g/dL 2.2-4.2 [facility] Work Phone: [phone] Magnesium [Mass/Vol] 2.0 mg/dL 1.6-2.6 [facility] Work Phone: [phone] Urea nitrogen/Creatinine [Mass ratio] 22.6 mg/mg 10-20 [facility] Work Phone: No Panel Informationon 01-11 Estimated GFR (MDRD) Amer 98 mL/min >60 [facility] Work Phone: Comment on above: GFR Calc Estimated GFR (MDRD) Non-Af Amer 81 mL/min >60 [facility] Work Phone: Comment on above: Non- GFR Calc Free Triiodothyronine (T3) pg/dL 3.5 pg/mL 2.18-3.98 [facility] Work Phone: [phone] Thyroid Stimulating Hormone (TSH) 2.25 uIU/mL 0.358-3.74 [facility] Work Phone: Vitamin D 25-Hydroxy 19.4 ng/mL [facility] Work Phone: Comment on above: Vitamin D 25(OH) Sta tus Range Deficiency <20 ng/mL (50nmol/L) Insufficiency 20 - 30 ng/mL (50 - 75 nmol/L) Sufficiency 30 - 100 ng/mL (75 - 250 nmol/L) Toxicity >100 ng/mL (>250 nmol/L) Serum or plasma albumin betsy urement (mass/volume)on 01-11-2022 Albumin [Mass/Vol] 3.4 g/dL 3.2-5.0 [facility] Work Phone: Serum or plasma albumin/glob ulin mass ratioon 01-11-2022 Albumin/Globulin [Mass ratio] 0.8 {ratio} 0.9-2.4 [facility] Work Phone: Serum or plasma calcium betsy urement (mass/volume)on 01-11-2022 Calcium [Mass/Vol] 9.5 mg/dL 8.5-10.1 [facility] Work Phone: Serum or plasma creatinine m easurement (mass/volume)on 01-11-2022 Creatinine [Mass/Vol] 0.75 mg/dL 0.55-1.[address] [facility] Work Phone: Comment on above: The validity of the calculated GFR & GFRAA in patients over 70 years has not been determined. Clinical correlation is essential. Serum or plasma urea nitroge n measurement (mass/volume)on 01-11-2022 Urea nitrogen [Mass/Vol] 17 mg/dL 7-18 [facility] Work Phone: Thin prep Papanicolaou smear with manual screeningon 01-11-2022 Thin prep Papanicolaou smear with manual screening 14 U/L 15-37 [facility] Work Phone: Thin prep Papanicolaou smear with manual screening 5 5-15 [facility] Work Phone: XR CHEST 2 VIEWSon 2 [...] AM Ordering Provider: JUAN JUAREZ [facility] ([place]) XR CHEST 2 VIEWSon XR CHEST 2 [...] AM Ordering Provider: JUAN JUAREZ [facility] ([place] .GFRon 12-14-2021 GFR >60 Normal [facility] ([place]) Comment on above: Result Comment: GFR Population [...] GLURP, CLRP, NARP, BGRP, KRP, CARP #### [address] [address] GFR Non- >60 Normal [facility] ([place]) Comment on above: Result Comment: GFR Population [...] GLURP, CLRP, NARP, BGRP, KRP, CARP #### [address] [address] BMPon 12-14-2021 BUN/Creatinine Ratio 32.6 ratio High 10.0-22.0 [facility] ([place]) Comment on above: Performed By: #### H CTRP, HGBRP, GLURP, CLRP, NARP, BGRP, KRP, CARP #### [address] [address] Calcium [Mass/Vol] 10.0 mg/dL Normal 8.7-10.4 [facility] ([place]) Comment on above: Performed By: #### H CTRP, HGBRP, GLURP, CLRP, NARP, BGRP, KRP, CARP #### [address] [address] Chloride [Moles/Vol] 99 mmol/L Normal 98-110 [facility] ([place]) Comment on above: Performed By: #### H CTRP, HGBRP, GLURP, CLRP, NARP, BGRP, KRP, CARP #### [address] [address] CO2 [Moles/Vol] 32 mmol/L Normal 22-32 [facility] ([place]) Comment on above: Performed By: #### H CTRP, HGBRP, GLURP, CLRP, NARP, BGRP, KRP, CARP #### [address] [address] Creatinine [Mass/Vol] 0.86 mg/dL Normal 0.50-1.20 [facility] ([place]) Comment on above: Performed By: #### H CTRP, HGBRP, GLURP, CLRP, NARP, BGRP, KRP, CARP #### [address] [address] Electrolyte Balance 6.0 mEq/L Normal 4.0-15.0 [facility] ([place]) Comment on above: Performed By: #### H CTRP, HGBRP, GLURP, CLRP, NARP, BGRP, KRP, CARP #### [address] [address] Glucose [Mass/Vol] 268 mg/dL High 82-115 [facility] ([place]) Comment on above: Performed By: #### H CTRP, HGBRP, GLURP, CLRP, NARP, BGRP, KRP, CARP #### [address] [address] Potassium [Moles/Vol] 5.0 mmol/L Normal 3.5-5.0 [facility] ([place]) Comment on above: Result Comment: Spec imen slightly hemolyzed. Performed By: #### H CTRP, HGBRP, GLURP, CLRP, NARP, BGRP, KRP, CARP #### [address] [address] Sodium [Moles/Vol] 137 mmol/L Normal 136-145 [facility] ([place]) Comment on above: Performed By: #### H CTRP, HGBRP, GLURP, CLRP, NARP, BGRP, KRP, CARP #### [address] [address] Urea nitrogen [Mass/Vol] 28.0 mg/dL High 8.0-22.0 [facility] ([place]) Comment on above: Performed By: #### H CTRP, HGBRP, GLURP, CLRP, NARP, BGRP, KRP, CARP #### [address] [address] LABORATORYOrdered By: SYSTEM SYSTEM on 12-13-2021 Calcium [...] 11/30/2021 12:35:45 AM Ordering Provider: NAT Mercado [facility] ([place]) .Auto Diffon 11-29-2021 Basophil, Absolute 0.1 10 3/mcL Normal 0.0-0.3 [facility] ([place]) Comment on above: Performed By: #### H CTRP, HGBRP, GLURP, CLRP, NARP, BGRP, KRP, CARP #### [address] [address] Basophils/100 WBC (Bld) 0.5 % Normal 0.0-2.5 A [facility] ([place]) Comment on above: Performed By: #### H CTRP, HGBRP, GLURP, CLRP, NARP, BGRP, KRP, CARP #### [address] [address] Eosinophil, Absolute 0.7 10 3/mcL Normal 0.0-0.7 [facility] ([place]) Comment on above: Performed By: #### H CTRP, HGBRP, GLURP, CLRP, NARP, BGRP, KRP, CARP #### [address] [address] Eosinophils/100 WBC (Bld) 4.1 % Normal 0.0-6.0 [facility] ([place]) Comment on above: Performed By: #### H CTRP, HGBRP, GLURP, CLRP, NARP, BGRP, KRP, CARP #### [address] [address] Lymphocyte, Absolute 2.5 10 3/mcL Normal 0.9-4.3 [facility] ([place]) Comment on above: Performed By: #### H CTRP, HGBRP, GLURP, CLRP, NARP, BGRP, KRP, CARP #### [address] [address] Lymphocytes/100 WBC (Bld) 14.6 % Low 20.0-40.0 [facility] ([place]) Comment on above: Performed By: #### H CTRP, HGBRP, GLURP, CLRP, NARP, BGRP, KRP, CARP #### [address] [address] Monocyte, Absolute 1.2 10 3/mcL Normal 0.1-1.4 [facility] ([place]) Comment on above: Performed By: #### H CTRP, HGBRP, GLURP, CLRP, NARP, BGRP, KRP, CARP #### [address] [address] Monocytes/100 WBC (Bld) 6.8 % Normal 2.0-13.0 A [facility] ([place]) Comment on above: Performed By: #### H CTRP, HGBRP, GLURP, CLRP, NARP, BGRP, KRP, CARP #### [address] [address] Neutrophils/100 WBC (Bld) 74.0 % Normal 50.0-75.0 [facility] ([place]) Comment on above: Performed By: #### H CTRP, HGBRP, GLURP, CLRP, NARP, BGRP, KRP, CARP #### [address] [address] .GFRon 11-29-2021 GFR Non- >60 Normal [facility] ([place]) Comment on above: Result Comment: GFR Population [...] GLURP, CLRP, NARP, BGRP, KRP, CARP #### [address] [address] GFR >60 Normal [facility] ([place]) Comment on above: Result Comment: GFR Population [...] GLURP, CLRP, NARP, BGRP, KRP, CARP #### [address] [address] .NEUABSon 11-29-2021 Neutrophil, Absolute 12.4 10 3/mcL High 2.3-8.1 A [facility] ([place]) Comment on above: Performed By: #### H CTRP, HGBRP, GLURP, CLRP, NARP, BGRP, KRP, CARP #### [address] [address] BMPon 11-29-2021 BUN/Creatinine Ratio 23.2 ratio High 10.0-22.0 [facility] ([place]) Comment on above: Performed By: #### H CTRP, HGBRP, GLURP, CLRP, NARP, BGRP, KRP, CARP #### [address] [address] Calcium [Mass/Vol] 9.4 mg/dL Normal 8.7-10.4 [facility] ([place] Comment on above: Performed By: #### H CTRP, HGBRP, GLURP, CLRP, NARP, BGRP, KRP, CARP #### [address] [address] Chloride [Moles/Vol] 92 mmol/L Low 98-110 [facility] ([place]) Comment on above: Performed By: #### H CTRP, HGBRP, GLURP, CLRP, NARP, BGRP, KRP, CARP #### [address] [address] CO2 [Moles/Vol] 34 mmol/L High 22-32 [facility] ([place]) Comment on above: Performed By: #### H CTRP, HGBRP, GLURP, CLRP, NARP, BGRP, KRP, CARP #### [address] [address] Creatinine [Mass/Vol] 0.82 mg/dL Normal 0.50-1.20 [facility] ([place]) Comment on above: Performed By: #### H CTRP, HGBRP, GLURP, CLRP, NARP, BGRP, KRP, CARP #### [address] [address] Electrolyte Balance 8.0 mEq/L Normal 4.0-15.0 [facility] ([place]) Comment on above: Performed By: #### H CTRP, HGBRP, GLURP, CLRP, NARP, BGRP, KRP, CARP #### [place] [address] Glucose [Mass/Vol] 168 mg/dL High 82-115 [facility] ([place]) Comment on above: Performed By: #### H CTRP, HGBRP, GLURP, CLRP, NARP, BGRP, KRP, CARP #### [place] [id number] Potassium [Moles/Vol] 3.9 mmol/L Normal 3.5-5.0 [facility] ([place]) Comment on above: Performed By: #### H CTRP, HGBRP, GLURP, CLRP, NARP, BGRP, KRP, CARP #### [place] [address] Sodium [Moles/Vol] 134 mmol/L Low 136-145 [facility] ([place]) Comment on above: Performed By: #### H CTRP, HGBRP, GLURP, CLRP, NARP, BGRP, KRP, CARP #### [place] [id number] Urea nitrogen [Mass/Vol] 19.0 mg/dL Normal 8.0-22.0 [facility] ([place]) Comment on above: Performed By: #### H CTRP, HGBRP, GLURP, CLRP, NARP, BGRP, KRP, CARP #### [address] [address] CBCon 11-29-2021 Erythrocyte distribution width (RBC) [Ratio] 14.2 % Normal 11.5-15.5 [facility] ([place]) Comment on above: Performed By: #### H CTRP, HGBRP, GLURP, CLRP, NARP, BGRP, KRP, CARP #### [place] [id number] Hematocrit (Bld) [Volume fraction] 34.6 % Normal 34.0-46.0 [facility] ([place]) Comment on above: Performed By: #### H CTRP, HGBRP, GLURP, CLRP, NARP, BGRP, KRP, CARP #### [place] [address] Hgb 11.4 G/dL Low 12.0-16.0 [facility] ([place]) Comment on above: Performed By: #### H CTRP, HGBRP, GLURP, CLRP, NARP, BGRP, KRP, CARP #### [place] [address] MCH (RBC) [Entitic mass] 29.7 pg Normal 27.0-33.0 [facility] ([place]) Comment on above: Performed By: #### H CTRP, HGBRP, GLURP, CLRP, NARP, BGRP, KRP, CARP #### [place] [address] MCHC 32.9 G/dL Normal 32.0-36.0 [facility] ([place]) Comment on above: Performed By: #### H CTRP, HGBRP, GLURP, CLRP, NARP, BGRP, KRP, CARP #### [place] [address] MCV (RBC) [Entitic vol] 90.5 fL Normal 80.0-99.0 A [facility] ([place]) Comment on above: Performed By: #### H CTRP, HGBRP, GLURP, CLRP, NARP, BGRP, KRP, CARP #### [place] [address] Platelet 365 10 3/mcL Normal 150-450 [facility] ([place]) Comment on above: Performed By: #### H CTRP, HGBRP, GLURP, CLRP, NARP, BGRP, KRP, CARP #### [place] [address] Platelet mean volume (Bld) [Entitic vol] 8.1 fL Normal 6.6-10.5 [facility] ([place]) Comment on above: Performed By: #### H CTRP, HGBRP, GLURP, CLRP, NARP, BGRP, KRP, CARP #### [place] [address] RBC 3.82 10 6/mcL Low 4.10-5.30 [facility] ([place]) Comment on above: Performed By: #### H CTRP, HGBRP, GLURP, CLRP, NARP, BGRP, KRP, CARP #### [facility] [address] [place] [address] WBC 16.8 10 3/mcL High 4.5-10.8 [facility] ([place]) Comment on above: Performed By: #### H CTRP, HGBRP, GLURP, CLRP, NARP, BGRP, KRP, CARP #### [facility] [address] [place] [id number] LABORATORYOrdered By: Dayo Sanabria on 11-29-2021 Blood Glucose Testing Reason Routine (11/29/21 11:55 AM) [facility] Work Phone: Glucose [Mass/Vol] 164 mg/dL Invalid Interpretation Code 82 - 115 mg/dL [facility] Work Phone: Comment on above: Result Comment: LARS Buckley LABORATORYOrdered By: Rodney Nam on 11-29-2021 Blood Glucose Testing Reason Routine (11/29/21 7:28 AM) [facility] Work Phone: Glucose [Mass/Vol] 174 mg/dL Invalid Interpretation Code 82 - 115 mg/dL [facility] Work Phone: LABORATORYOrdered By: SYSTEM SYSTEM on [...] Absolute 0.1 10 3/mcL Normal 0.0-0.3 [facility] ([place]) Comment on above: Performed By: #### H CTRP, HGBRP, GLURP, CLRP, NARP, BGRP, KRP, CARP #### [address] [address] Basophils/100 WBC (Bld) 0.8 % Normal 0.0-2.5 A [facility] ([place]) Comment on above: Performed By: #### H CTRP, HGBRP, GLURP, CLRP, NARP, BGRP, KRP, CARP #### [address] [address] Eosinophil, Absolute 0.4 10 3/mcL Normal 0.0-0.7 [facility] ([place]) Comment on above: Performed By: #### H CTRP, HGBRP, GLURP, CLRP, NARP, BGRP, KRP, CARP #### [address] [address] Eosinophils/100 WBC (Bld) 2.9 % Normal 0.0-6.0 [facility] ([place]) Comment on above: Performed By: #### H CTRP, HGBRP, GLURP, CLRP, NARP, BGRP, KRP, CARP #### [address] [address] Lymphocyte, Absolute 2.0 10 3/mcL Normal 0.9-4.3 [facility] ([place]) Comment on above: Performed By: #### H CTRP, HGBRP, GLURP, CLRP, NARP, BGRP, KRP, CARP #### [address] [address] Lymphocytes/100 WBC (Bld) 13.5 % Low 20.0-40.0 [facility] ([place]) Comment on above: Performed By: #### H CTRP, HGBRP, GLURP, CLRP, NARP, BGRP, KRP, CARP #### [address] [address] Monocyte, Absolute 1.1 10 3/mcL Normal 0.1-1.4 [facility] ([place]) Comment on above: Performed By: #### H CTRP, HGBRP, GLURP, CLRP, NARP, BGRP, KRP, CARP #### [address] [address] Monocytes/100 WBC (Bld) 7.7 % Normal 2.0-13.0 [facility] ([place]) Comment on above: Performed By: #### H CTRP, HGBRP, GLURP, CLRP, NARP, BGRP, KRP, CARP #### [address] [address] Neutrophils/100 WBC (Bld) 75.1 % High 50.0-75.0 [facility] ([place]) Comment on above: Performed By: #### H CTRP, HGBRP, GLURP, CLRP, NARP, BGRP, KRP, CARP #### [address] [address] .GFRon 11-28-2021 GFR >60 Normal [facility] ([place]) Comment on above: Result Comment: GFR Population [...] GLURP, CLRP, NARP, BGRP, KRP, CARP #### [place] [address] GFR Non- >60 Normal [facility] ([place]) Comment on above: Result Comment: GFR Population [...] GLURP, CLRP, NARP, BGRP, KRP, CARP #### [address] [address] .NEUABSon 11-28-2021 Neutrophil, Absolute 11.2 10 3/mcL High 2.3-8.1 A [facility] ([place]) Comment on above: Performed By: #### H CTRP, HGBRP, GLURP, CLRP, NARP, BGRP, KRP, CARP #### [address] [address] [facility] 11-28-2021 Barometric Pressure 701 mmHg Normal [facility] ([place]) Comment on above: Performed By: #### H CTRP, HGBRP, GLURP, CLRP, NARP, BGRP, KRP, CARP #### [address] [address] Base excess Calc (Bld) [Moles/Vol] 9.8 mmol/L Normal [facility] ([place]) Comment on above: Performed By: #### H CTRP, HGBRP, GLURP, CLRP, NARP, BGRP, KRP, CARP #### [address] [address] CO2 [Moles/Vol] 36.7 mmol/L High 22.0-30.0 [facility] ([place]) Comment on above: Performed By: #### H CTRP, HGBRP, GLURP, CLRP, NARP, BGRP, KRP, CARP #### [address] [address] HCO3 (Bld) [Moles/Vol] 35.1 mmol/L High 21.0-29.0 A [facility] ([place]) Comment on above: Performed By: #### H CTRP, HGBRP, GLURP, CLRP, NARP, BGRP, KRP, CARP #### [address] [address] Oxygen (Bld) [Partial pressure] 70.5 mm[Hg] Low 74.0-108.0 [facility] ([place]) Comment on above: Performed By: #### H CTRP, HGBRP, GLURP, CLRP, NARP, BGRP, KRP, CARP #### [address] [address] Oxygen saturation in Blood 94.9 % Normal 92.0-96.0 [facility] ([place]) Comment on above: Performed By: #### H CTRP, HGBRP, GLURP, CLRP, NARP, BGRP, KRP, CARP #### [address] [address] pCO2 50.4 mmHg High 32.0-46.0 [facility] ([place]) Comment on above: Performed By: #### H CTRP, HGBRP, GLURP, CLRP, NARP, BGRP, KRP, CARP #### [address] [address] pH (Bld) 7.461 [pH] High 7.380-7.460 [facility] ([place]) Comment on above: Performed By: #### H CTRP, HGBRP, GLURP, CLRP, NARP, BGRP, KRP, CARP #### [address] [address] BMPon 11-28-2021 BUN/Creatinine Ratio 23.3 ratio High 10.0-22.0 [facility] ([place]) Comment on above: Performed By: #### H CTRP, HGBRP, GLURP, CLRP, NARP, BGRP, KRP, CARP #### [address] [address] Calcium [Mass/Vol] 9.0 mg/dL Normal 8.7-10.4 [facility] ([place]) Comment on above: Performed By: #### H CTRP, HGBRP, GLURP, CLRP, NARP, BGRP, KRP, CARP #### [address] [address] Chloride [Moles/Vol] 92 mmol/L Low 98-110 [facility] ([place]) Comment on above: Performed By: #### H CTRP, HGBRP, GLURP, CLRP, NARP, BGRP, KRP, CARP #### [address] [address] CO2 [Moles/Vol] 37 mmol/L High 22-32 [facility] ([place]) Comment on above: Performed By: #### H CTRP, HGBRP, GLURP, CLRP, NARP, BGRP, KRP, CARP #### [address] [address] Creatinine [Mass/Vol] 0.90 mg/dL Normal 0.50-1.20 [facility] ([place]) Comment on above: Performed By: #### H CTRP, HGBRP, GLURP, CLRP, NARP, BGRP, KRP, CARP #### [address] [address] Electrolyte Balance 6.0 mEq/L Normal 4.0-15.0 [facility] ([place]) Comment on above: Performed By: #### H CTRP, HGBRP, GLURP, CLRP, NARP, BGRP, KRP, CARP #### [address] [address] Glucose [Mass/Vol] 208 mg/dL High 82-115 [facility] ([place]) Comment on above: Performed By: #### H CTRP, HGBRP, GLURP, CLRP, NARP, BGRP, KRP, CARP #### [address] [address] Potassium [Moles/Vol] 3.7 mmol/L Normal 3.5-5.0 [facility] ([place]) Comment on above: Performed By: #### H CTRP, HGBRP, GLURP, CLRP, NARP, BGRP, KRP, CARP #### [address] [address] Sodium [Moles/Vol] 135 mmol/L Low 136-145 [facility] ([place]) Comment on above: Performed By: #### H CTRP, HGBRP, GLURP, CLRP, NARP, BGRP, KRP, CARP #### [address] [address] Urea nitrogen [Mass/Vol] 21.0 mg/dL Normal 8.0-22.0 [facility] ([place] Comment on above: Performed By: #### H CTRP, HGBRP, GLURP, CLRP, NARP, BGRP, KRP, CARP #### [address] [address] CBCon 11-28-2021 Erythrocyte distribution width (RBC) [Ratio] 14.1 % Normal 11.5-15.5 [facility] ([place]) Comment on above: Performed By: #### H CTRP, HGBRP, GLURP, CLRP, NARP, BGRP, KRP, CARP #### [place] [address] Hematocrit (Bld) [Volume fraction] 34.4 % Normal 34.0-46.0 [facility] ([place] Comment on above: Performed By: #### H CTRP, HGBRP, GLURP, CLRP, NARP, BGRP, KRP, CARP #### [place] [address] Hgb 11.2 G/dL Low 12.0-16.0 [facility] ([place]) Comment on above: Performed By: #### H CTRP, HGBRP, GLURP, CLRP, NARP, BGRP, KRP, CARP #### [place] [address] MCH (RBC) [Entitic mass] 29.5 pg Normal 27.0-33.0 [facility] ([place] Comment on above: Performed By: #### H CTRP, HGBRP, GLURP, CLRP, NARP, BGRP, KRP, CARP #### [place] [address] MCHC 32.6 G/dL Normal 32.0-36.0 [facility] ([place]) Comment on above: Performed By: #### H CTRP, HGBRP, GLURP, CLRP, NARP, BGRP, KRP, CARP #### [place] [id number] MCV (RBC) [Entitic vol] 90.5 fL Normal 80.0-99.0 [facility] ([place]) Comment on above: Performed By: #### H CTRP, HGBRP, GLURP, CLRP, NARP, BGRP, KRP, CARP #### [place] [address] Platelet 353 10 3/mcL Normal 150-450 [facility] ([place]) Comment on above: Performed By: #### H CTRP, HGBRP, GLURP, CLRP, NARP, BGRP, KRP, CARP #### [place] [address] Platelet mean volume (Bld) [Entitic vol] 7.9 fL Normal 6.6-10.5 [facility] ([place] Comment on above: Performed By: #### H CTRP, HGBRP, GLURP, CLRP, NARP, BGRP, KRP, CARP #### [place] [address] RBC 3.80 10 6/mcL Low 4.10-5.30 [facility] ([place]) Comment on above: Performed By: #### H CTRP, HGBRP, GLURP, CLRP, NARP, BGRP, KRP, CARP #### [place] [address] WBC 14.9 10 3/mcL High 4.5-10.8 [facility] ([place]) Comment on above: Performed By: #### H CTRP, HGBRP, GLURP, CLRP, NARP, BGRP, KRP, CARP #### [place] [address] CVFLURVon 11-28-2021 Date of Onset [id number] Invalid Interpretation Code [facility] ([place] Comment on above: Performed By: #### H CTRP, HGBRP, GLURP, CLRP, NARP, BGRP, KRP, CARP #### [place] [address] Employed in Healthcare No Normal [facility] ([place] Comment on above: Performed By: #### H CTRP, HGBRP, GLURP, CLRP, NARP, BGRP, KRP, CARP #### [place] [address] First Test No Normal [facility] ([place] Comment on above: Performed By: #### H CTRP, HGBRP, GLURP, CLRP, NARP, BGRP, KRP, CARP #### [place] [address] FLU A PCR Negative Normal Negative [facility] ([place] Comment on above: Result Comment: Note s Performed By: #### H CTRP, HGBRP, GLURP, CLRP, NARP, BGRP, KRP, CARP #### [place] [address] FLU B PCR Negative Normal Negative [facility] ([place] Comment on above: Result Comment: Note s Performed By: #### H CTRP, HGBRP, GLURP, CLRP, NARP, BGRP, KRP, CARP #### [place] [address] Hospitalized Yes [facility] ([place] Comment on above: Performed By: #### H CTRP, HGBRP, GLURP, CLRP, NARP, BGRP, KRP, CARP #### [place] [address] ICU No [facility] ([place] Comment on above: Performed By: #### H CTRP, HGBRP, GLURP, CLRP, NARP, BGRP, KRP, CARP #### [place] [address] Not [facility] ([place] Comment on above: Performed By: #### H CTRP, HGBRP, GLURP, CLRP, NARP, BGRP, KRP, CARP #### [place] [address] Resides in Congregate Care Setting No [facility] ([place] Comment on above: Performed By: #### H CTRP, HGBRP, GLURP, CLRP, NARP, BGRP, KRP, CARP #### [place] [address] RSV PCR Negative Normal Negative [facility] ([place]) Comment on above: Result Comment: Note s Performed By: #### H CTRP, HGBRP, GLURP, CLRP, NARP, BGRP, KRP, CARP #### [address] [address] SARS-CoV-2 (COVID-19) RNA SLOAN+probe Ql (Unsp spec) Negative Normal Negative [facility] ([place] Comment on above: Result Comment: Note s [...] GLURP, CLRP, NARP, BGRP, KRP, CARP #### [address] [address] Symptomatic as Defined by CDC No Normal [facility] ([place]) Comment on above: Performed By: #### H CTRP, HGBRP, GLURP, CLRP, NARP, BGRP, KRP, CARP #### [address] [address] LABORATORYOrdered By: Coleen Mckeon on 11-28-2021 Glucose [Mass/Vol] 159 mg/dL Invalid Interpretation Code 82 - 115 mg/dL [facility] Work Phone: LABORATORYOrdered By: Betty Awad on 11-28-2021 Date of Onset [id number] Invalid Interpretation Code AH Auto Viro/Sero SS [...] Glucose Testing Reason Routine (11/28/21 4:40 PM) [facility] Work Phone: LABORATORYOrdered By: SYSTEM SYSTEM on [...] 11/28/2021 8:13:29 AM Ordering Provider: KAELYN Mercado [facility] ([place]) .Auto Diffon 11-27-2021 Basophil, Absolute 0.1 10 3/mcL Normal 0.0-0.3 [facility] ([place]) Comment on above: Performed By: #### H CTRP, HGBRP, GLURP, CLRP, NARP, BGRP, KRP, CARP #### [address] [address] Basophils/100 WBC (Bld) 0.5 % Normal 0.0-2.5 A [facility] ([place] Comment on above: Performed By: #### H CTRP, HGBRP, GLURP, CLRP, NARP, BGRP, KRP, CARP #### [address] [address] Eosinophil, Absolute 0.4 10 3/mcL Normal 0.0-0.7 [facility] ([place] Comment on above: Performed By: #### H CTRP, HGBRP, GLURP, CLRP, NARP, BGRP, KRP, CARP #### [address] [address] Eosinophils/100 WBC (Bld) 2.0 % Normal 0.0-6.0 [facility] ([place] Comment on above: Performed By: #### H CTRP, HGBRP, GLURP, CLRP, NARP, BGRP, KRP, CARP #### [address] [address] Lymphocyte, Absolute 2.2 10 3/mcL Normal 0.9-4.3 [facility] ([place] Comment on above: Performed By: #### H CTRP, HGBRP, GLURP, CLRP, NARP, BGRP, KRP, CARP #### [address] [address] Lymphocytes/100 WBC (Bld) 11.6 % Low 20.0-40.0 [facility] ([place] Comment on above: Performed By: #### H CTRP, HGBRP, GLURP, CLRP, NARP, BGRP, KRP, CARP #### [address] [address] Monocyte, Absolute 1.3 10 3/mcL Normal 0.1-1.4 [facility] ([place] Comment on above: Performed By: #### H CTRP, HGBRP, GLURP, CLRP, NARP, BGRP, KRP, CARP #### [address] [address] Monocytes/100 WBC (Bld) 6.7 % Normal 2.0-13.0 [facility] ([place]) Comment on above: Performed By: #### H CTRP, HGBRP, GLURP, CLRP, NARP, BGRP, KRP, CARP #### [address] [address] Neutrophils/100 WBC (Bld) 79.2 % High 50.0-75.0 [facility] ([place] Comment on above: Performed By: #### H CTRP, HGBRP, GLURP, CLRP, NARP, BGRP, KRP, CARP #### [address] [address] .GFRon 11-27-2021 GFR >60 Normal [facility] ([place]) Comment on above: Result Comment: GFR Population [...] GLURP, CLRP, NARP, BGRP, KRP, CARP #### [place] [address] GFR Non- >60 Normal [facility] ([place] Comment on above: Result Comment: GFR Population [...] GLURP, CLRP, NARP, BGRP, KRP, CARP #### [address] [address] .NEUABSon 11-27-2021 Neutrophil, Absolute 15.1 10 3/mcL High 2.3-8.1 A [facility] ([place]) Comment on above: Performed By: #### H CTRP, HGBRP, GLURP, CLRP, NARP, BGRP, KRP, CARP #### [address] [address] BGon 11-27-2021 Barometric Pressure 733 mmHg Normal [facility] ([place] Comment on above: Performed By: #### H CTRP, HGBRP, GLURP, CLRP, NARP, BGRP, KRP, CARP #### [place] [address] Base excess Calc (Bld) [Moles/Vol] 10.2 mmol/L Normal [facility] ([place] Comment on above: Performed By: #### H CTRP, HGBRP, GLURP, CLRP, NARP, BGRP, KRP, CARP #### [place] [address] CO2 [Moles/Vol] 38.8 mmol/L High 22.0-30.0 [facility] ([place] Comment on above: Performed By: #### H CTRP, HGBRP, GLURP, CLRP, NARP, BGRP, KRP, CARP #### [place] [address] HCO3 (Bld) [Moles/Vol] 37.1 mmol/L High 21.0-29.0 A [facility] ([place]) Comment on above: Performed By: #### H CTRP, HGBRP, GLURP, CLRP, NARP, BGRP, KRP, CARP #### [place] [id number] Oxygen (Bld) [Partial pressure] 74.1 mm[Hg] Normal 74.0-108.0 [facility] ([place] Comment on above: Performed By: #### H CTRP, HGBRP, GLURP, CLRP, NARP, BGRP, KRP, CARP #### [place] [address] Oxygen saturation in Blood 94.8 % Normal 92.0-96.0 [facility] ([place] Comment on above: Performed By: #### H CTRP, HGBRP, GLURP, CLRP, NARP, BGRP, KRP, CARP #### [place] [id number] pCO2 58.3 mmHg High 32.0-46.0 [facility] ([place] Comment on above: Performed By: #### H CTRP, HGBRP, GLURP, CLRP, NARP, BGRP, KRP, CARP #### [place] [address] pH (Bld) 7.421 [pH] Normal 7.380-7.460 [facility] ([place] Comment on above: Performed By: #### H CTRP, HGBRP, GLURP, CLRP, NARP, BGRP, KRP, CARP #### [place] [address] CBCon 11-27-2021 Erythrocyte distribution width (RBC) [Ratio] 13.6 % Normal 11.5-15.5 [facility] ([place] Comment on above: Performed By: #### H CTRP, HGBRP, GLURP, CLRP, NARP, BGRP, KRP, CARP #### [place] [address] Hematocrit (Bld) [Volume fraction] 35.1 % Normal 34.0-46.0 [facility] ([place] Comment on above: Performed By: #### H CTRP, HGBRP, GLURP, CLRP, NARP, BGRP, KRP, CARP #### [place] [address] Hgb 11.6 G/dL Low 12.0-16.0 [facility] ([place] Comment on above: Performed By: #### H CTRP, HGBRP, GLURP, CLRP, NARP, BGRP, KRP, CARP #### [place] [address] MCH (RBC) [Entitic mass] 29.7 pg Normal 27.0-33.0 [facility] ([place] Comment on above: Performed By: #### H CTRP, HGBRP, GLURP, CLRP, NARP, BGRP, KRP, CARP #### [place] [address] MCHC 32.9 G/dL Normal 32.0-36.0 [facility] ([place] Comment on above: Performed By: #### H CTRP, HGBRP, GLURP, CLRP, NARP, BGRP, KRP, CARP #### [place] [address] MCV (RBC) [Entitic vol] 90.3 fL Normal 80.0-99.0 A [facility] ([place] Comment on above: Performed By: #### H CTRP, HGBRP, GLURP, CLRP, NARP, BGRP, KRP, CARP #### [place] [address] Platelet 322 10 3/mcL Normal 150-450 [facility] ([place]) Comment on above: Performed By: #### H CTRP, HGBRP, GLURP, CLRP, NARP, BGRP, KRP, CARP #### [place] [address] Platelet mean volume (Bld) [Entitic vol] 8.0 fL Normal 6.6-10.5 [facility] ([place] Comment on above: Performed By: #### H CTRP, HGBRP, GLURP, CLRP, NARP, BGRP, KRP, CARP #### [place] [address] RBC 3.89 10 6/mcL Low 4.10-5.30 [facility] ([place]) Comment on above: Performed By: #### H CTRP, HGBRP, GLURP, CLRP, NARP, BGRP, KRP, CARP #### [place] [address] WBC 19.1 10 3/mcL High 4.5-10.8 [facility] ([place]) Comment on above: Performed By: #### H CTRP, HGBRP, GLURP, CLRP, NARP, BGRP, KRP, CARP #### [address] [address] CMPon 11-27-2021 Albumin Level 3.4 G/dL Normal 3.2-4.8 [facility] ([place] Comment on above: Performed By: #### H CTRP, HGBRP, GLURP, CLRP, NARP, BGRP, KRP, CARP #### [address] [address] Albumin/Globulin [Mass ratio] 1.0 {ratio} Normal 0.9-1.6 [facility] ([place] Comment on above: Performed By: #### H CTRP, HGBRP, GLURP, CLRP, NARP, BGRP, KRP, CARP #### [address] [address] ALP [Catalytic activity/Vol] 79 U/L Normal 38-126 [facility] ([place] Comment on above: Performed By: #### H CTRP, HGBRP, GLURP, CLRP, NARP, BGRP, KRP, CARP #### [address] [address] ALT [Catalytic activity/Vol] 20 U/L Normal 10-49 [facility] ([place]) Comment on above: Performed By: #### H CTRP, HGBRP, GLURP, CLRP, NARP, BGRP, KRP, CARP #### [address] [address] AST [Catalytic activity/Vol] 20 U/L Normal 8-34 [facility] ([place] Comment on above: Performed By: #### H CTRP, HGBRP, GLURP, CLRP, NARP, BGRP, KRP, CARP #### [address] [address] Bili Total 0.80 mg/dL Normal 0.20-1.20 [facility] ([place]) Comment on above: Result Comment: Use of this assay is not recommended for patients undergoing treatment with eltrombopag due to the potential for falsely elevated results. Performed By: #### H CTRP, HGBRP, GLURP, CLRP, NARP, BGRP, KRP, CARP #### [address] [address] BUN/Creatinine Ratio 21.4 ratio Normal 10.0-22.0 [facility] ([place] Comment on above: Performed By: #### H CTRP, HGBRP, GLURP, CLRP, NARP, BGRP, KRP, CARP #### [address] [address] Calcium [Mass/Vol] 9.0 mg/dL Normal 8.7-10.4 [facility] ([place]) Comment on above: Performed By: #### H CTRP, HGBRP, GLURP, CLRP, NARP, BGRP, KRP, CARP #### [address] [address] Chloride [Moles/Vol] 96 mmol/L Low 98-110 [facility] ([place] Comment on above: Performed By: #### H CTRP, HGBRP, GLURP, CLRP, NARP, BGRP, KRP, CARP #### [address] [address] CO2 [Moles/Vol] 33 mmol/L High 22-32 [facility] ([place] Comment on above: Performed By: #### H CTRP, HGBRP, GLURP, CLRP, NARP, BGRP, KRP, CARP #### [address] [address] Creatinine [Mass/Vol] 0.70 mg/dL Normal 0.50-1.20 [facility] ([place]) Comment on above: Performed By: #### H CTRP, HGBRP, GLURP, CLRP, NARP, BGRP, KRP, CARP #### [address] [address] Electrolyte Balance 6.0 mEq/L Normal 4.0-15.0 [facility] ([place]) Comment on above: Performed By: #### H CTRP, HGBRP, GLURP, CLRP, NARP, BGRP, KRP, CARP #### [address] [address] Globulin 3.4 G/dL Normal 1.5-3.8 [facility] ([place]) Comment on above: Performed By: #### H CTRP, HGBRP, GLURP, CLRP, NARP, BGRP, KRP, CARP #### [address] [address] Glucose [Mass/Vol] 142 mg/dL High 82-115 [facility] ([place]) Comment on above: Performed By: #### H CTRP, HGBRP, GLURP, CLRP, NARP, BGRP, KRP, CARP #### [address] [address] Potassium [Moles/Vol] 4.1 mmol/L Normal 3.5-5.0 [facility] ([place]) Comment on above: Performed By: #### H CTRP, HGBRP, GLURP, CLRP, NARP, BGRP, KRP, CARP #### [address] [address] Sodium [Moles/Vol] 135 mmol/L Low 136-145 [facility] ([place]) Comment on above: Performed By: #### H CTRP, HGBRP, GLURP, CLRP, NARP, BGRP, KRP, CARP #### [address] [address] Total Protein 6.8 G/dL Normal 5.7-8.2 [facility] ([place]) Comment on above: Result Comment: No te - New Reference Range in effect 19 Performed By: #### H CTRP, HGBRP, GLURP, CLRP, NARP, BGRP, KRP, CARP #### [address] [address] Urea nitrogen [Mass/Vol] 15.0 mg/dL Normal 8.0-22.0 [facility] ([place]) Comment on above: Performed By: #### H CTRP, HGBRP, GLURP, CLRP, NARP, BGRP, KRP, CARP #### [place] [address] LABORATORYOrdered By: SYSTEM SYSTEM on 11-27-2021 Albumin [...] 11/27/2021 7:51:49 AM Ordering Provider: NAT Mercado [facility] ([place]) .Auto Diffon 11-26-2021 Basophil, Absolute 0.1 10 3/mcL Normal 0.0-0.3 [facility] ([place]) Basophils/100 WBC (Bld) 0.4 % Normal 0.0-2.5 A [facility]) Eosinophil, Absolute 0.1 10 3/mcL Normal 0.0-0.7 [facility] ([place]) Eosinophils/100 WBC (Bld) 0.7 % Normal 0.0-6.0 [facility] [place]) Lymphocyte, Absolute 2.2 10 3/mcL Normal 0.9-4.3 [facility] [place] Lymphocytes/100 WBC (Bld) 11.0 % Low 20.0-40.0 [facility] [place]) Monocyte, Absolute 1.5 10 3/mcL High 0.1-1.4 [facility] [place]) Monocytes/100 WBC (Bld) 7.4 % Normal 2.0-13.0 A [facility] ([place] Neutrophils/100 WBC (Bld) 80.5 % High 50.0-75.0 [facility] [place]) Basophil, Absolute 0.1 10 3/mcL Normal 0.0-0.3 [facility] ([place]) Comment on above: Performed By: #### H CTRP, HGBRP, GLURP, CLRP, NARP, BGRP, KRP, CARP #### [address] [address] Basophils/100 WBC (Bld) 0.4 % Normal 0.0-2.5 A [facility] ([place]) Comment on above: Performed By: #### H CTRP, HGBRP, GLURP, CLRP, NARP, BGRP, KRP, CARP #### [address] [address] Eosinophil, Absolute 0.1 10 3/mcL Normal 0.0-0.7 [facility] ([place]) Comment on above: Performed By: #### H CTRP, HGBRP, GLURP, CLRP, NARP, BGRP, KRP, CARP #### [address] [address] Eosinophils/100 WBC (Bld) 0.5 % Normal 0.0-6.0 [facility] ([place]) Comment on above: Performed By: #### H CTRP, HGBRP, GLURP, CLRP, NARP, BGRP, KRP, CARP #### [address] [address] Lymphocyte, Absolute 2.0 10 3/mcL Normal 0.9-4.3 [facility] ([place]) Comment on above: Performed By: #### H CTRP, HGBRP, GLURP, CLRP, NARP, BGRP, KRP, CARP #### [address] [address] Lymphocytes/100 WBC (Bld) 10.0 % Low 20.0-40.0 [facility] ([place]) Comment on above: Performed By: #### H CTRP, HGBRP, GLURP, CLRP, NARP, BGRP, KRP, CARP #### [address] [address] Monocyte, Absolute 1.5 10 3/mcL High 0.1-1.4 [facility] ([place]) Comment on above: Performed By: #### H CTRP, HGBRP, GLURP, CLRP, NARP, BGRP, KRP, CARP #### [address] [address] Monocytes/100 WBC (Bld) 7.5 % Normal 2.0-13.0 A [facility] ([place]) Comment on above: Performed By: #### H CTRP, HGBRP, GLURP, CLRP, NARP, BGRP, KRP, CARP #### [address] [address] Neutrophils/100 WBC (Bld) 81.6 % High 50.0-75.0 [facility] ([place]) Comment on above: Performed By: #### H CTRP, HGBRP, GLURP, CLRP, NARP, BGRP, KRP, CARP #### [address] [address] .GFRon 11-26-2021 GFR >60 Normal [facility] ([place]) Comment on above: Result Comment: GFR Population [...] GLURP, CLRP, NARP, BGRP, KRP, CARP #### [address] [address] GFR Non- >60 Normal [facility] ([place]) Comment on above: Result Comment: GFR Population [...] GLURP, CLRP, NARP, BGRP, KRP, CARP #### [address] [address] .NEUABSon 11-26-2021 Neutrophil, Absolute 16.0 10 3/mcL High 2.3-8.1 A [facility] ([place] Neutrophil, Absolute 16.6 10 3/mcL High 2.3-8.1 A [facility] ([place]) Comment on above: Performed By: #### H CTRP, HGBRP, GLURP, CLRP, NARP, BGRP, KRP, CARP #### [address] [address] BGon 11-26-2021 Barometric Pressure 734 mmHg Normal [facility] ([place]) Comment on above: Performed By: #### H CTRP, HGBRP, GLURP, CLRP, NARP, BGRP, KRP, CARP #### [address] [address] Base excess Calc (Bld) [Moles/Vol] 11.2 mmol/L Normal [facility] ([place] Comment on above: Performed By: #### H CTRP, HGBRP, GLURP, CLRP, NARP, BGRP, KRP, CARP #### [address] [address] CO2 [Moles/Vol] 39.8 mmol/L High 22.0-30.0 [facility] ([place]) Comment on above: Performed By: #### H CTRP, HGBRP, GLURP, CLRP, NARP, BGRP, KRP, CARP #### [address] [address] HCO3 (Bld) [Moles/Vol] 38.0 mmol/L High 21.0-29.0 A [facility] ([place]) Comment on above: Performed By: #### H CTRP, HGBRP, GLURP, CLRP, NARP, BGRP, KRP, CARP #### [address] [address] Oxygen (Bld) [Partial pressure] 68.4 mm[Hg] Low 74.0-108.0 [facility] ([place]) Comment on above: Performed By: #### H CTRP, HGBRP, GLURP, CLRP, NARP, BGRP, KRP, CARP #### [address] [address] Oxygen saturation in Blood 93.8 % Normal 92.0-96.0 [facility] ([place]) Comment on above: Performed By: #### H CTRP, HGBRP, GLURP, CLRP, NARP, BGRP, KRP, CARP #### [address] [address] pCO2 57.9 mmHg High 32.0-46.0 [facility] ([place]) Comment on above: Performed By: #### H CTRP, HGBRP, GLURP, CLRP, NARP, BGRP, KRP, CARP #### [address] [address] pH (Bld) 7.435 [pH] Normal 7.380-7.460 [facility] ([place] Comment on above: Performed By: #### H CTRP, HGBRP, GLURP, CLRP, NARP, BGRP, KRP, CARP #### [address] [address] Barometric Pressure 711 mmHg Normal [facility] ([place] Comment on above: Performed By: #### H CTRP, HGBRP, GLURP, CLRP, NARP, BGRP, KRP, CARP #### [address] [address] Base excess Calc (Bld) [Moles/Vol] 3.2 mmol/L Normal [facility] ([place] Comment on above: Performed By: #### H CTRP, HGBRP, GLURP, CLRP, NARP, BGRP, KRP, CARP #### [address] [address] CO2 [Moles/Vol] 30.3 mmol/L High 22.0-30.0 [facility] ([place] Comment on above: Performed By: #### H CTRP, HGBRP, GLURP, CLRP, NARP, BGRP, KRP, CARP #### [address] [address] HCO3 (Bld) [Moles/Vol] 28.8 mmol/L Normal 21.0-29.0 A [facility] ([place] Comment on above: Performed By: #### H CTRP, HGBRP, GLURP, CLRP, NARP, BGRP, KRP, CARP #### [address] [address] Oxygen (Bld) [Partial pressure] 103.1 mm[Hg] Normal 74.0-108.0 [facility] ([place] Comment on above: Performed By: #### H CTRP, HGBRP, GLURP, CLRP, NARP, BGRP, KRP, CARP #### [address] [address] Oxygen saturation in Blood 97.9 % High 92.0-96.0 [facility] ([place] Comment on above: Performed By: #### H CTRP, HGBRP, GLURP, CLRP, NARP, BGRP, KRP, CARP #### [address] [address] pCO2 48.2 mmHg High 32.0-46.0 [facility] ([place]) Comment on above: Performed By: #### H CTRP, HGBRP, GLURP, CLRP, NARP, BGRP, KRP, CARP #### [place] [address] pH (Bld) 7.394 [pH] Normal 7.380-7.460 [facility] ([place]) Comment on above: Performed By: #### H CTRP, HGBRP, GLURP, CLRP, NARP, BGRP, KRP, CARP #### [address] [address] BMPon 11-26-2021 BUN/Creatinine Ratio 26.5 ratio High 10.0-22.0 [facility] ([place]) Comment on above: Performed By: #### H CTRP, HGBRP, GLURP, CLRP, NARP, BGRP, KRP, CARP #### [address] [address] Calcium [Mass/Vol] 8.3 mg/dL Low 8.7-10.4 [facility] ([place]) Comment on above: Performed By: #### H CTRP, HGBRP, GLURP, CLRP, NARP, BGRP, KRP, CARP #### [address] [address] Chloride [Moles/Vol] 98 mmol/L Normal 98-110 [facility] ([place] Comment on above: Performed By: #### H CTRP, HGBRP, GLURP, CLRP, NARP, BGRP, KRP, CARP #### [address] [address] CO2 [Moles/Vol] 28 mmol/L Normal 22-32 [facility] ([place] Comment on above: Performed By: #### H CTRP, HGBRP, GLURP, CLRP, NARP, BGRP, KRP, CARP #### [address] [address] Creatinine [Mass/Vol] 0.68 mg/dL Normal 0.50-1.20 [facility] ([place]) Comment on above: Performed By: #### H CTRP, HGBRP, GLURP, CLRP, NARP, BGRP, KRP, CARP #### [address] [address] Electrolyte Balance 7.0 mEq/L Normal 4.0-15.0 [facility] ([place] Comment on above: Performed By: #### H CTRP, HGBRP, GLURP, CLRP, NARP, BGRP, KRP, CARP #### [address] [address] Glucose [Mass/Vol] 176 mg/dL High 82-115 [facility] ([place] Comment on above: Performed By: #### H CTRP, HGBRP, GLURP, CLRP, NARP, BGRP, KRP, CARP #### [address] [address] Potassium [Moles/Vol] 4.2 mmol/L Normal 3.5-5.0 [facility] ([place]) Comment on above: Performed By: #### H CTRP, HGBRP, GLURP, CLRP, NARP, BGRP, KRP, CARP #### [address] [address] Sodium [Moles/Vol] 133 mmol/L Low 136-145 [facility] ([place] Comment on above: Performed By: #### H CTRP, HGBRP, GLURP, CLRP, NARP, BGRP, KRP, CARP #### [address] [address] Urea nitrogen [Mass/Vol] 18.0 mg/dL Normal 8.0-22.0 [facility] ([place] Comment on above: Performed By: #### H CTRP, HGBRP, GLURP, CLRP, NARP, BGRP, KRP, CARP #### [address] [address] CBCon 11-26-2021 Erythrocyte distribution width (RBC) [Ratio] 14.1 % Normal 11.5-15.5 [facility] [place] Hematocrit (Bld) [Volume fraction] 31.3 % Low 34.0-46.0 [facility] [place]) Hgb 10.5 G/dL Low 12.0-16.0 [facility] [place]) MCH (RBC) [Entitic mass] 30.1 pg Normal 27.0-33.0 [facility] [place] MCHC 33.5 G/dL Normal 32.0-36.0 [facility] [place] MCV (RBC) [Entitic vol] 89.8 fL Normal 80.0-99.0 A [facility] ([place]) Platelet 268 10 3/mcL Normal 150-450 [facility] [place]) Platelet mean volume (Bld) [Entitic vol] 8.4 fL Normal 6.6-10.5 [facility]) RBC 3.49 10 6/mcL Low 4.10-5.30 [facility] [place] WBC 19.8 10 3/mcL High 4.5-10.8 [facility] [place] Erythrocyte distribution width (RBC) [Ratio] 14.0 % Normal 11.5-15.5 [facility]) Comment on above: Performed By: #### H CTRP, HGBRP, GLURP, CLRP, NARP, BGRP, KRP, CARP #### [address] [address] Hematocrit (Bld) [Volume fraction] 31.7 % Low 34.0-46.0 [facility] ([place] Comment on above: Performed By: #### H CTRP, HGBRP, GLURP, CLRP, NARP, BGRP, KRP, CARP #### [place] [address] Hgb 10.3 G/dL Low 12.0-16.0 [facility] ([place] Comment on above: Performed By: #### H CTRP, HGBRP, GLURP, CLRP, NARP, BGRP, KRP, CARP #### [place] [id number] MCH (RBC) [Entitic mass] 29.6 pg Normal 27.0-33.0 [facility] ([place] Comment on above: Performed By: #### H CTRP, HGBRP, GLURP, CLRP, NARP, BGRP, KRP, CARP #### [place] [address] MCHC 32.7 G/dL Normal 32.0-36.0 [facility] ([place] Comment on above: Performed By: #### H CTRP, HGBRP, GLURP, CLRP, NARP, BGRP, KRP, CARP #### [place] [address] MCV (RBC) [Entitic vol] 90.7 fL Normal 80.0-99.0 A [facility] ([place] Comment on above: Performed By: #### H CTRP, HGBRP, GLURP, CLRP, NARP, BGRP, KRP, CARP #### [place] [address] Platelet 243 10 3/mcL Normal 150-450 [facility] ([place] Comment on above: Performed By: #### H CTRP, HGBRP, GLURP, CLRP, NARP, BGRP, KRP, CARP #### [place] [id number] Platelet mean volume (Bld) [Entitic vol] 8.6 fL Normal 6.6-10.5 [facility] ([place] Comment on above: Performed By: #### H CTRP, HGBRP, GLURP, CLRP, NARP, BGRP, KRP, CARP #### [place] [address] RBC 3.49 10 6/mcL Low 4.10-5.30 [facility] ([place]) Comment on above: Performed By: #### H CTRP, HGBRP, GLURP, CLRP, NARP, BGRP, KRP, CARP #### [facility] [address] [place] [address] WBC 20.3 10 3/mcL High 4.5-10.8 [facility] ([place] Comment on above: Performed By: #### H CTRP, HGBRP, GLURP, CLRP, NARP, BGRP, KRP, CARP #### [facility] [address] [place] [id number] LABORATORYOrdered By: Nicci erickson on 11-26-2021 Barometric [...] Culture Urine No growth at 48 hours. [facility] Work Phone: UAon 11-26-2021 Color (U) Yellow Normal [facility] ([place] Comment on above: Performed By: #### H CTRP, HGBRP, GLURP, CLRP, NARP, BGRP, KRP, CARP #### [place] [address] Glucose (U) [Mass/Vol] 100 mg/dL Abnormal Negative [facility] ([place] Comment on above: Performed By: #### H CTRP, HGBRP, GLURP, CLRP, NARP, BGRP, KRP, CARP #### [place] [address] Ketones Ql (U) 15 mg/dL Abnormal Neg-Trace [facility] ([place] Comment on above: Performed By: #### H CTRP, HGBRP, GLURP, CLRP, NARP, BGRP, KRP, CARP #### [place] [address] UA Appear Clear Normal Clear [facility] ([place] Comment on above: Performed By: #### H CTRP, HGBRP, GLURP, CLRP, NARP, BGRP, KRP, CARP #### [place] [address] UA Blood Negative Normal Neg-Trace [facility] ([place] Comment on above: Performed By: #### H CTRP, HGBRP, GLURP, CLRP, NARP, BGRP, KRP, CARP #### [place] [address] UA Leuk Est Negative Normal Negative [facility] ([place] Comment on above: Performed By: #### H CTRP, HGBRP, GLURP, CLRP, NARP, BGRP, KRP, CARP #### [address] [address] UA Nitrite Negative Normal Negative [facility] ([place] Comment on above: Performed By: #### H CTRP, HGBRP, GLURP, CLRP, NARP, BGRP, KRP, CARP #### [place] [address] UA pH 5.0 Normal 5.0 - 8.0 [facility] ([place] Comment on above: Performed By: #### H CTRP, HGBRP, GLURP, CLRP, NARP, BGRP, KRP, CARP #### [place] [address] UA Protein Negative Normal Negative [facility] ([place] Comment on above: Performed By: #### H CTRP, HGBRP, GLURP, CLRP, NARP, BGRP, KRP, CARP #### [place] [address] UA Spec Grav 1.015 Normal 1.006-1.029 [facility] ([place] Comment on above: Performed By: #### H CTRP, HGBRP, GLURP, CLRP, NARP, BGRP, KRP, CARP #### [place] [address] UA Specimen Type Catheter Normal [facility] ([place] Comment on above: Performed By: #### H CTRP, HGBRP, GLURP, CLRP, NARP, BGRP, KRP, CARP #### [place] [address] UA Urobilinogen 0.2 E.U./dL Normal 0.2-1.0 [facility] ([place] Comment on above: Performed By: #### H CTRP, HGBRP, GLURP, CLRP, NARP, BGRP, KRP, CARP #### [place] [address] Urobilinogen (U) [Mass/Vol] Negative Normal Neg-Trace [facility] ([place] Comment on above: Performed By: #### H CTRP, HGBRP, GLURP, CLRP, NARP, BGRP, KRP, CARP #### [place] [address] XR CHEST 1 VIEWon 11-26-2021 XR CHEST [...] PM Ordering Provider: AL KOHLER [facility] ([place] XR CHEST 1 VIEW ORIGINAL EXAMINATION: ONE [...] AM Ordering Provider: NAT DUNN [facility] ([place]) .Auto Diffon 11-25-2021 Basophil, Absolute 0.0 10 3/mcL Normal 0.0-0.3 [facility] ([place] Comment on above: Performed By: #### H CTRP, HGBRP, GLURP, CLRP, NARP, BGRP, KRP, CARP #### [address] [address] Basophils/100 WBC (Bld) 0.2 % Normal 0.0-2.5 A [facility] ([place] Comment on above: Performed By: #### H CTRP, HGBRP, GLURP, CLRP, NARP, BGRP, KRP, CARP #### [address] [address] Eosinophil, Absolute 0.0 10 3/mcL Normal 0.0-0.7 [facility] ([place] Comment on above: Performed By: #### H CTRP, HGBRP, GLURP, CLRP, NARP, BGRP, KRP, CARP #### [address] [address] Eosinophils/100 WBC (Bld) 0.2 % Normal 0.0-6.0 [facility] ([place] Comment on above: Performed By: #### H CTRP, HGBRP, GLURP, CLRP, NARP, BGRP, KRP, CARP #### [address] [address] Lymphocyte, Absolute 2.0 10 3/mcL Normal 0.9-4.3 [facility] ([place] Comment on above: Performed By: #### H CTRP, HGBRP, GLURP, CLRP, NARP, BGRP, KRP, CARP #### [address] [address] Lymphocytes/100 WBC (Bld) 10.7 % Low 20.0-40.0 [facility] ([place] Comment on above: Performed By: #### H CTRP, HGBRP, GLURP, CLRP, NARP, BGRP, KRP, CARP #### [address] [address] Monocyte, Absolute 1.7 10 3/mcL High 0.1-1.4 [facility] ([place] Comment on above: Performed By: #### H CTRP, HGBRP, GLURP, CLRP, NARP, BGRP, KRP, CARP #### [address] [address] Monocytes/100 WBC (Bld) 9.3 % Normal 2.0-13.0 [facility] ([place] Comment on above: Performed By: #### H CTRP, HGBRP, GLURP, CLRP, NARP, BGRP, KRP, CARP #### [address] [address] Neutrophils/100 WBC (Bld) 79.6 % High 50.0-75.0 [facility] ([place] Comment on above: Performed By: #### H CTRP, HGBRP, GLURP, CLRP, NARP, BGRP, KRP, CARP #### [address] [address] .GFRon 11-25-2021 GFR Non- >60 Normal [facility] ([place] Comment on above: Result Comment: GFR Population [...] GLURP, CLRP, NARP, BGRP, KRP, CARP #### [address] [address] GFR >60 Normal [facility] ([place] Comment on above: Result Comment: GFR Population [...] GLURP, CLRP, NARP, BGRP, KRP, CARP #### [address] [address] .NEUABSon 11-25-2021 Neutrophil, Absolute 14.6 10 3/mcL High 2.3-8.1 A [facility] ([place] Comment on above: Performed By: #### H CTRP, HGBRP, GLURP, CLRP, NARP, BGRP, KRP, CARP #### [place] [address] BGon 11-25-2021 Barometric Pressure 712 mmHg Normal [facility] ([place] Comment on above: Performed By: #### H CTRP, HGBRP, GLURP, CLRP, NARP, BGRP, KRP, CARP #### [place] [address] Base excess Calc (Bld) [Moles/Vol] 2.5 mmol/L Normal [facility] ([place] Comment on above: Performed By: #### H CTRP, HGBRP, GLURP, CLRP, NARP, BGRP, KRP, CARP #### [address] [address] CO2 [Moles/Vol] 28.1 mmol/L Normal 22.0-30.0 [facility] ([place] Comment on above: Performed By: #### H CTRP, HGBRP, GLURP, CLRP, NARP, BGRP, KRP, CARP #### [place] [id number] HCO3 (Bld) [Moles/Vol] 26.8 mmol/L Normal 21.0-29.0 A [facility] ([place] Comment on above: Performed By: #### H CTRP, HGBRP, GLURP, CLRP, NARP, BGRP, KRP, CARP #### [place] [address] Oxygen (Bld) [Partial pressure] 72.8 mm[Hg] Low 74.0-108.0 [facility] ([place] Comment on above: Performed By: #### H CTRP, HGBRP, GLURP, CLRP, NARP, BGRP, KRP, CARP #### [address] [address] Oxygen saturation in Blood 94.9 % Normal 92.0-96.0 [facility] ([place] Comment on above: Performed By: #### H CTRP, HGBRP, GLURP, CLRP, NARP, BGRP, KRP, CARP #### [address] [address] pCO2 40.3 mmHg Normal 32.0-46.0 [facility] ([place] Comment on above: Performed By: #### H CTRP, HGBRP, GLURP, CLRP, NARP, BGRP, KRP, CARP #### [address] [address] pH (Bld) 7.441 [pH] Normal 7.380-7.460 [facility] ([place] Comment on above: Performed By: #### H CTRP, HGBRP, GLURP, CLRP, NARP, BGRP, KRP, CARP #### [address] [address] BMPon 11-25-2021 BUN/Creatinine Ratio 19.7 ratio Normal 10.0-22.0 [facility] ([place] Comment on above: Performed By: #### H CTRP, HGBRP, GLURP, CLRP, NARP, BGRP, KRP, CARP #### [place] [id number] Calcium [Mass/Vol] 7.9 mg/dL Low 8.7-10.4 [facility] ([place] Comment on above: Performed By: #### H CTRP, HGBRP, GLURP, CLRP, NARP, BGRP, KRP, CARP #### [place] [id number] Chloride [Moles/Vol] 101 mmol/L Normal 98-110 [facility] ([place] Comment on above: Performed By: #### H CTRP, HGBRP, GLURP, CLRP, NARP, BGRP, KRP, CARP #### [address] [address] CO2 [Moles/Vol] 26 mmol/L Normal 22-32 [facility] ([place] Comment on above: Performed By: #### H CTRP, HGBRP, GLURP, CLRP, NARP, BGRP, KRP, CARP #### [address] [address] Creatinine [Mass/Vol] 0.66 mg/dL Normal 0.50-1.20 [facility] ([place] Comment on above: Performed By: #### H CTRP, HGBRP, GLURP, CLRP, NARP, BGRP, KRP, CARP #### [address] [address] Electrolyte Balance 10.0 mEq/L Normal 4.0-15.0 [facility] ([place] Comment on above: Performed By: #### H CTRP, HGBRP, GLURP, CLRP, NARP, BGRP, KRP, CARP #### [address] [address] Glucose [Mass/Vol] 89 mg/dL Normal 82-115 [facility] ([place] Comment on above: Performed By: #### H CTRP, HGBRP, GLURP, CLRP, NARP, BGRP, KRP, CARP #### [address] [address] Potassium [Moles/Vol] 3.8 mmol/L Normal 3.5-5.0 [facility] ([place] Comment on above: Performed By: #### H CTRP, HGBRP, GLURP, CLRP, NARP, BGRP, KRP, CARP #### [address] [address] Sodium [Moles/Vol] 137 mmol/L Normal 136-145 [facility] ([place] Comment on above: Performed By: #### H CTRP, HGBRP, GLURP, CLRP, NARP, BGRP, KRP, CARP #### [address] [address] Urea nitrogen [Mass/Vol] 13.0 mg/dL Normal 8.0-22.0 [facility] ([place] Comment on above: Performed By: #### H CTRP, HGBRP, GLURP, CLRP, NARP, BGRP, KRP, CARP #### [place] [address] CBCon 11-25-2021 Erythrocyte distribution width (RBC) [Ratio] 13.8 % Normal 11.5-15.5 [facility] ([place] Comment on above: Performed By: #### H CTRP, HGBRP, GLURP, CLRP, NARP, BGRP, KRP, CARP #### [place] [address] Hematocrit (Bld) [Volume fraction] 31.4 % Low 34.0-46.0 [facility] ([place] Comment on above: Performed By: #### H CTRP, HGBRP, GLURP, CLRP, NARP, BGRP, KRP, CARP #### [place] [address] Hgb 10.3 G/dL Low 12.0-16.0 [facility] ([place] Comment on above: Performed By: #### H CTRP, HGBRP, GLURP, CLRP, NARP, BGRP, KRP, CARP #### [place] [address] MCH (RBC) [Entitic mass] 29.5 pg Normal 27.0-33.0 [facility] ([place] Comment on above: Performed By: #### H CTRP, HGBRP, GLURP, CLRP, NARP, BGRP, KRP, CARP #### [place] [address] MCHC 32.8 G/dL Normal 32.0-36.0 [facility] ([place] Comment on above: Performed By: #### H CTRP, HGBRP, GLURP, CLRP, NARP, BGRP, KRP, CARP #### [place] [address] MCV (RBC) [Entitic vol] 89.8 fL Normal 80.0-99.0 A [facility] ([place] Comment on above: Performed By: #### H CTRP, HGBRP, GLURP, CLRP, NARP, BGRP, KRP, CARP #### [place] [address] Platelet 205 10 3/mcL Normal 150-450 [facility] ([place] Comment on above: Performed By: #### H CTRP, HGBRP, GLURP, CLRP, NARP, BGRP, KRP, CARP #### [place] [address] Platelet mean volume (Bld) [Entitic vol] 8.9 fL Normal 6.6-10.5 [facility] ([place] Comment on above: Performed By: #### H CTRP, HGBRP, GLURP, CLRP, NARP, BGRP, KRP, CARP #### [place] [address] RBC 3.49 10 6/mcL Low 4.10-5.30 [facility] ([place] Comment on above: Performed By: #### H CTRP, HGBRP, GLURP, CLRP, NARP, BGRP, KRP, CARP #### [place] [address] WBC 18.4 10 3/mcL High 4.5-10.8 [facility] ([place]) Comment on above: Performed By: #### H CTRP, HGBRP, GLURP, CLRP, NARP, BGRP, KRP, CARP #### [place] [address] [place] 11-25-2021 Potassium [Moles/Vol] 4.3 mmol/L Normal 3.5-5.0 [facility] ([place]) Comment on above: Performed By: #### K #### [place] [address] LABORATORYOrdered By: Alma Rosa Cabrera on 11-25-2021 [...] 11-25-2021 Cholesterol [Mass/Vol] 85 mg/dL Normal 50-199 [facility] ([place]) Comment on above: Result Comment: Chol esterol Reference Interval: Less than 200 Desirable 200-239 Borderline high risk 240 and above High risk Performed By: #### H CTRP, HGBRP, GLURP, CLRP, NARP, BGRP, KRP, CARP #### [address] [address] Cholesterol in HDL [Mass/Vol] 34 mg/dL Low 40-59 [facility] ([place]) Comment on above: Performed By: #### H CTRP, HGBRP, GLURP, CLRP, NARP, BGRP, KRP, CARP #### [address] [address] Cholesterol in LDL [Mass/Vol] 37 mg/dL Normal 0-129 [facility] ([place]) Comment on above: Performed By: #### H CTRP, HGBRP, GLURP, CLRP, NARP, BGRP, KRP, CARP #### [address] [address] Triglyceride [Mass/Vol] 72 mg/dL Normal 3-149 A [facility] ([place]) Comment on above: Performed By: #### H CTRP, HGBRP, GLURP, CLRP, NARP, BGRP, KRP, CARP #### [address] [address] XR CHEST 1 VIEWon 11-25-2021 XR CHEST [...] 11/25/2021 6:55:32 AM Ordering Provider: NAT Mercado [facility] ([place]) XR CHEST 1 VIEW ORIGINAL EXAMINATION: ONE [...] 11/24/2021 10:21:41 PM Ordering Provider: POLLY Mercado [facility] ([place]) .Auto Diffon 11-24-2021 Basophil, Absolute 0.0 10 3/mcL Normal 0.0-0.3 [facility] ([place]) Comment on above: Performed By: #### H CTRP, HGBRP, GLURP, CLRP, NARP, BGRP, KRP, CARP #### [address] [address] Basophils/100 WBC (Bld) 0.2 % Normal 0.0-2.5 [facility] ([place]) Comment on above: Performed By: #### H CTRP, HGBRP, GLURP, CLRP, NARP, BGRP, KRP, CARP #### [address] [address] Eosinophil, Absolute 0.0 10 3/mcL Normal 0.0-0.7 [facility] ([place]) Comment on above: Performed By: #### H CTRP, HGBRP, GLURP, CLRP, NARP, BGRP, KRP, CARP #### [address] [address] Eosinophils/100 WBC (Bld) 0.0 % Normal 0.0-6.0 [facility] ([place]) Comment on above: Performed By: #### H CTRP, HGBRP, GLURP, CLRP, NARP, BGRP, KRP, CARP #### [address] [address] Lymphocyte, Absolute 1.3 10 3/mcL Normal 0.9-4.3 [facility] ([place]) Comment on above: Performed By: #### H CTRP, HGBRP, GLURP, CLRP, NARP, BGRP, KRP, CARP #### [address] [address] Lymphocytes/100 WBC (Bld) 8.8 % Low 20.0-40.0 [facility] ([place]) Comment on above: Performed By: #### H CTRP, HGBRP, GLURP, CLRP, NARP, BGRP, KRP, CARP #### [address] [address] Monocyte, Absolute 1.0 10 3/mcL Normal 0.1-1.4 [facility] ([place]) Comment on above: Performed By: #### H CTRP, HGBRP, GLURP, CLRP, NARP, BGRP, KRP, CARP #### [address] [address] Monocytes/100 WBC (Bld) 6.9 % Normal 2.0-13.0 A [facility] ([place]) Comment on above: Performed By: #### H CTRP, HGBRP, GLURP, CLRP, NARP, BGRP, KRP, CARP #### [address] [address] Neutrophils/100 WBC (Bld) 84.1 % High 50.0-75.0 [facility] ([place] Comment on above: Performed By: #### H CTRP, HGBRP, GLURP, CLRP, NARP, BGRP, KRP, CARP #### [address] [address] .GFRon 11-24-2021 GFR Non- >60 Normal [facility] ([place] Comment on above: Result Comment: GFR Population [...] GLURP, CLRP, NARP, BGRP, KRP, CARP #### [address] [address] GFR >60 Normal [facility] ([place] Comment on above: Result Comment: GFR Population [...] GLURP, CLRP, NARP, BGRP, KRP, CARP #### [address] [address] .NEUABSon 11-24-2021 Neutrophil, Absolute 12.4 10 3/mcL High 2.3-8.1 A [facility] ([place]) Comment on above: Performed By: #### H CTRP, HGBRP, GLURP, CLRP, NARP, BGRP, KRP, CARP #### [address] [address] BGon 11-24-2021 Barometric Pressure 707 mmHg Normal [facility] ([place]) Comment on above: Performed By: #### K #### [address] [address] Base excess Calc (Bld) [Moles/Vol] 1.1 mmol/L Normal [facility] ([place]) Comment on above: Performed By: #### K #### [address] [address] CO2 [Moles/Vol] 27.3 mmol/L Normal 22.0-30.0 [facility] ([place] Comment on above: Performed By: #### K #### [address] [address] HCO3 (Bld) [Moles/Vol] 26.0 mmol/L Normal 21.0-29.0 A [facility] ([place]) Comment on above: Performed By: #### K #### [address] [address] Oxygen (Bld) [Partial pressure] 74.2 mm[Hg] Normal 74.0-108.0 [facility] ([place]) Comment on above: Performed By: #### K #### [address] [address] Oxygen saturation in Blood 95.6 % Normal 92.0-96.0 [facility] ([place] Comment on above: Performed By: #### K #### [address] [address] pCO2 42.2 mmHg Normal 32.0-46.0 [facility] ([place] Comment on above: Performed By: #### K #### [address] [address] pH (Bld) 7.407 [pH] Normal 7.380-7.460 [facility] ([place] Comment on above: Performed By: #### K #### [address] [address] Barometric Pressure 706 mmHg Normal [facility] ([place] Comment on above: Performed By: #### H CTRP, HGBRP, GLURP, CLRP, NARP, BGRP, KRP, CARP #### [address] [address] Base excess Calc (Bld) [Moles/Vol] -2.2000 mmol/L Normal [facility] ([place] Comment on above: Performed By: #### H CTRP, HGBRP, GLURP, CLRP, NARP, BGRP, KRP, CARP #### [address] [address] CO2 [Moles/Vol] 26.0 mmol/L Normal 22.0-30.0 [facility] ([place] Comment on above: Performed By: #### H CTRP, HGBRP, GLURP, CLRP, NARP, BGRP, KRP, CARP #### [address] [address] HCO3 (Bld) [Moles/Vol] 24.4 mmol/L Normal 21.0-29.0 A [facility] ([place] Comment on above: Performed By: #### H CTRP, HGBRP, GLURP, CLRP, NARP, BGRP, KRP, CARP #### [address] [address] Oxygen (Bld) [Partial pressure] 86.6 mm[Hg] Normal 74.0-108.0 [facility] ([place] Comment on above: Performed By: #### H CTRP, HGBRP, GLURP, CLRP, NARP, BGRP, KRP, CARP #### [address] [address] Oxygen saturation in Blood 96.2 % High 92.0-96.0 [facility] ([place] Comment on above: Performed By: #### H CTRP, HGBRP, GLURP, CLRP, NARP, BGRP, KRP, CARP #### [address] [address] pCO2 50.9 mmHg High 32.0-46.0 [facility] ([place] Comment on above: Performed By: #### H CTRP, HGBRP, GLURP, CLRP, NARP, BGRP, KRP, CARP #### [address] [address] pH (Bld) 7.299 [pH] Low 7.380-7.460 [facility] ([place] Comment on above: Performed By: #### H CTRP, HGBRP, GLURP, CLRP, NARP, BGRP, KRP, CARP #### [address] [address] Barometric Pressure 709 mmHg Normal [facility] ([place] Comment on above: Performed By: #### H CTRP, HGBRP, GLURP, CLRP, NARP, BGRP, KRP, CARP #### [address] [address] Base excess Calc (Bld) [Moles/Vol] -0.8000 mmol/L Normal [facility] ([place] Comment on above: Performed By: #### H CTRP, HGBRP, GLURP, CLRP, NARP, BGRP, KRP, CARP #### [address] [address] CO2 [Moles/Vol] 27.3 mmol/L Normal 22.0-30.0 [facility] ([place] Comment on above: Performed By: #### H CTRP, HGBRP, GLURP, CLRP, NARP, BGRP, KRP, CARP #### [address] [address] HCO3 (Bld) [Moles/Vol] 25.7 mmol/L Normal 21.0-29.0 [facility] ([place]) Comment on above: Performed By: #### H CTRP, HGBRP, GLURP, CLRP, NARP, BGRP, KRP, CARP #### [address] [address] Oxygen (Bld) [Partial pressure] 130.7 mm[Hg] High 74.0-108.0 [facility] ([place] Comment on above: Performed By: #### H CTRP, HGBRP, GLURP, CLRP, NARP, BGRP, KRP, CARP #### [address] [address] Oxygen saturation in Blood 98.7 % High 92.0-96.0 [facility] ([place] Comment on above: Performed By: #### H CTRP, HGBRP, GLURP, CLRP, NARP, BGRP, KRP, CARP #### [address] [address] pCO2 50.9 mmHg High 32.0-46.0 [facility] ([place] Comment on above: Performed By: #### H CTRP, HGBRP, GLURP, CLRP, NARP, BGRP, KRP, CARP #### [address] [address] pH (Bld) 7.321 [pH] Low 7.380-7.460 [facility] ([place] Comment on above: Performed By: #### H CTRP, HGBRP, GLURP, CLRP, NARP, BGRP, KRP, CARP #### [address] [address] Barometric Pressure 735 mmHg Normal [facility] ([place] Comment on above: Performed By: #### H CTRP, HGBRP, GLURP, CLRP, NARP, BGRP, KRP, CARP #### [address] [address] Base excess Calc (Bld) [Moles/Vol] -2.0000 mmol/L Normal [facility] ([place] Comment on above: Performed By: #### H CTRP, HGBRP, GLURP, CLRP, NARP, BGRP, KRP, CARP #### [address] [address] CO2 [Moles/Vol] 27.5 mmol/L Normal 22.0-30.0 [facility] ([place] Comment on above: Performed By: #### H CTRP, HGBRP, GLURP, CLRP, NARP, BGRP, KRP, CARP #### [address] [address] HCO3 (Bld) [Moles/Vol] 25.7 mmol/L Normal 21.0-29.0 A [facility] ([place] Comment on above: Performed By: #### H CTRP, HGBRP, GLURP, CLRP, NARP, BGRP, KRP, CARP #### [address] [address] Oxygen (Bld) [Partial pressure] 101.8 mm[Hg] Normal 74.0-108.0 [facility] ([place] Comment on above: Performed By: #### H CTRP, HGBRP, GLURP, CLRP, NARP, BGRP, KRP, CARP #### [address] [address] Oxygen saturation in Blood 96.9 % High 92.0-96.0 [facility] ([place] Comment on above: Performed By: #### H CTRP, HGBRP, GLURP, CLRP, NARP, BGRP, KRP, CARP #### [address] [address] pCO2 55.8 mmHg High 32.0-46.0 [facility] ([place] Comment on above: Performed By: #### H CTRP, HGBRP, GLURP, CLRP, NARP, BGRP, KRP, CARP #### [address] [address] pH (Bld) 7.282 [pH] Low 7.380-7.460 [facility] ([place] Comment on above: Performed By: #### H CTRP, HGBRP, GLURP, CLRP, NARP, BGRP, KRP, CARP #### [address] [address] Barometric Pressure 705 mmHg Normal [facility] ([place] Comment on above: Performed By: #### H CTRP, HGBRP, GLURP, CLRP, NARP, BGRP, KRP, CARP #### [address] [address] Base excess Calc (Bld) [Moles/Vol] -1.8000 mmol/L Normal [facility] ([place] Comment on above: Performed By: #### H CTRP, HGBRP, GLURP, CLRP, NARP, BGRP, KRP, CARP #### [address] [address] CO2 [Moles/Vol] 27.9 mmol/L Normal 22.0-30.0 [facility] ([place] Comment on above: Performed By: #### H CTRP, HGBRP, GLURP, CLRP, NARP, BGRP, KRP, CARP #### [address] [address] HCO3 (Bld) [Moles/Vol] 26.1 mmol/L Normal 21.0-29.0 A [facility] ([place]) Comment on above: Performed By: #### H CTRP, HGBRP, GLURP, CLRP, NARP, BGRP, KRP, CARP #### [address] [address] Oxygen (Bld) [Partial pressure] 113.5 mm[Hg] High 74.0-108.0 [facility] ([place] Comment on above: Performed By: #### H CTRP, HGBRP, GLURP, CLRP, NARP, BGRP, KRP, CARP #### [place] [phone] Oxygen saturation in Blood 97.9 % High 92.0-96.0 [facility] ([place] Comment on above: Performed By: #### H CTRP, HGBRP, GLURP, CLRP, NARP, BGRP, KRP, CARP #### [place] [phone] pCO2 60.4 mmHg High 32.0-46.0 [facility] ([place] Comment on above: Performed By: #### H CTRP, HGBRP, GLURP, CLRP, NARP, BGRP, KRP, CARP #### [place] [phone] pH (Bld) 7.253 [pH] Low 7.380-7.460 [facility] ([place] Comment on above: Performed By: #### H CTRP, HGBRP, GLURP, CLRP, NARP, BGRP, KRP, CARP #### [address] [address] CBCon 11-24-2021 Erythrocyte distribution width (RBC) [Ratio] 14.1 % Normal 11.5-15.5 [facility] ([place]) Comment on above: Performed By: #### H CTRP, HGBRP, GLURP, CLRP, NARP, BGRP, KRP, CARP #### [place] [phone] Hematocrit (Bld) [Volume fraction] 29.2 % Low 34.0-46.0 [facility] ([place] Comment on above: Performed By: #### H CTRP, HGBRP, GLURP, CLRP, NARP, BGRP, KRP, CARP #### [address] [address] Hgb 9.6 G/dL Low 12.0-16.0 [facility] ([place] Comment on above: Performed By: #### H CTRP, HGBRP, GLURP, CLRP, NARP, BGRP, KRP, CARP #### [place] [address] MCH (RBC) [Entitic mass] 29.6 pg Normal 27.0-33.0 [facility] ([place] Comment on above: Performed By: #### H CTRP, HGBRP, GLURP, CLRP, NARP, BGRP, KRP, CARP #### [place] [address] MCHC 32.7 G/dL Normal 32.0-36.0 [facility] ([place] Comment on above: Performed By: #### H CTRP, HGBRP, GLURP, CLRP, NARP, BGRP, KRP, CARP #### [place] [address] MCV (RBC) [Entitic vol] 90.4 fL Normal 80.0-99.0 A [facility] ([place] Comment on above: Performed By: #### H CTRP, HGBRP, GLURP, CLRP, NARP, BGRP, KRP, CARP #### [place] [address] Platelet 186 10 3/mcL Normal 150-450 [facility] ([place]) Comment on above: Performed By: #### H CTRP, HGBRP, GLURP, CLRP, NARP, BGRP, KRP, CARP #### [place] [address] Platelet mean volume (Bld) [Entitic vol] 8.5 fL Normal 6.6-10.5 [facility] ([place] Comment on above: Performed By: #### H CTRP, HGBRP, GLURP, CLRP, NARP, BGRP, KRP, CARP #### [place] [address] RBC 3.23 10 6/mcL Low 4.10-5.30 [facility] ([place] Comment on above: Performed By: #### H CTRP, HGBRP, GLURP, CLRP, NARP, BGRP, KRP, CARP #### [address] [address] WBC 14.8 10 3/mcL High 4.5-10.8 [facility] ([place] Comment on above: Performed By: #### H CTRP, HGBRP, GLURP, CLRP, NARP, BGRP, KRP, CARP #### [address] [address] CMPon 11-24-2021 Albumin Level 3.7 G/dL Normal 3.2-4.8 [facility] ([place] Comment on above: Performed By: #### H CTRP, HGBRP, GLURP, CLRP, NARP, BGRP, KRP, CARP #### [address] [address] Albumin/Globulin [Mass ratio] 1.9 {ratio} High 0.9-1.6 [facility] ([place] Comment on above: Performed By: #### H CTRP, HGBRP, GLURP, CLRP, NARP, BGRP, KRP, CARP #### [address] [address] ALP [Catalytic activity/Vol] 41 U/L Normal 38-126 [facility] ([place] Comment on above: Performed By: #### H CTRP, HGBRP, GLURP, CLRP, NARP, BGRP, KRP, CARP #### [address] [address] ALT [Catalytic activity/Vol] 33 U/L Normal 10-49 [facility] ([place] Comment on above: Performed By: #### H CTRP, HGBRP, GLURP, CLRP, NARP, BGRP, KRP, CARP #### [address] [address] AST [Catalytic activity/Vol] 49 U/L High 8-34 [facility] ([place] Comment on above: Performed By: #### H CTRP, HGBRP, GLURP, CLRP, NARP, BGRP, KRP, CARP #### [address] [address] Bili Total 0.80 mg/dL Normal 0.20-1.20 [facility] ([place] Comment on above: Result Comment: Use of this assay is not recommended for patients undergoing treatment with eltrombopag due to the potential for falsely elevated results. Performed By: #### H CTRP, HGBRP, GLURP, CLRP, NARP, BGRP, KRP, CARP #### [address] [address] BUN/Creatinine Ratio 22.4 ratio High 10.0-22.0 [facility] ([place] Comment on above: Performed By: #### H CTRP, HGBRP, GLURP, CLRP, NARP, BGRP, KRP, CARP #### [address] [address] Calcium [Mass/Vol] 7.5 mg/dL Low 8.7-10.4 [facility] ([place] Comment on above: Performed By: #### H CTRP, HGBRP, GLURP, CLRP, NARP, BGRP, KRP, CARP #### [address] [address] Chloride [Moles/Vol] 106 mmol/L Normal 98-110 [facility] ([place] Comment on above: Performed By: #### H CTRP, HGBRP, GLURP, CLRP, NARP, BGRP, KRP, CARP #### [address] [address] CO2 [Moles/Vol] 26 mmol/L Normal 22-32 [facility] ([place] Comment on above: Performed By: #### H CTRP, HGBRP, GLURP, CLRP, NARP, BGRP, KRP, CARP #### [address] [address] Creatinine [Mass/Vol] 0.67 mg/dL Normal 0.50-1.20 [facility] ([place] Comment on above: Performed By: #### H CTRP, HGBRP, GLURP, CLRP, NARP, BGRP, KRP, CARP #### [address] [address] Electrolyte Balance 5.0 mEq/L Normal 4.0-15.0 [facility] ([place] Comment on above: Performed By: #### H CTRP, HGBRP, GLURP, CLRP, NARP, BGRP, KRP, CARP #### [address] [address] Globulin 1.9 G/dL Normal 1.5-3.8 [facility] ([place] Comment on above: Performed By: #### H CTRP, HGBRP, GLURP, CLRP, NARP, BGRP, KRP, CARP #### [address] [address] Glucose [Mass/Vol] 141 mg/dL High 82-115 [facility] ([place] Comment on above: Performed By: #### H CTRP, HGBRP, GLURP, CLRP, NARP, BGRP, KRP, CARP #### [address] [address] Potassium [Moles/Vol] 4.2 mmol/L Normal 3.5-5.0 [facility] ([place] Comment on above: Performed By: #### H CTRP, HGBRP, GLURP, CLRP, NARP, BGRP, KRP, CARP #### [address] [address] Sodium [Moles/Vol] 137 mmol/L Normal 136-145 [facility] ([place] Comment on above: Performed By: #### H CTRP, HGBRP, GLURP, CLRP, NARP, BGRP, KRP, CARP #### [address] [address] Total Protein 5.6 G/dL Low 5.7-8.2 [facility] ([place] Comment on above: Result Comment: No te - New Reference Range in effect 19 Performed By: #### H CTRP, HGBRP, GLURP, CLRP, NARP, BGRP, KRP, CARP #### [place] [address] Urea nitrogen [Mass/Vol] 15.0 mg/dL Normal 8.0-22.0 [facility] ([place] Comment on above: Performed By: #### H CTRP, HGBRP, GLURP, CLRP, NARP, BGRP, KRP, CARP #### [place] [address] [place] 11-24-2021 Potassium [Moles/Vol] 4.0 mmol/L Normal 3.5-5.0 [facility] ([place] Comment on above: Performed By: #### H CTRP, HGBRP, GLURP, CLRP, NARP, BGRP, KRP, CARP #### [place] [address] Potassium [Moles/Vol] 4.7 mmol/L Normal 3.5-5.0 [facility] ([place] Comment on above: Performed By: #### H CTRP, HGBRP, GLURP, CLRP, NARP, BGRP, KRP, CARP #### [place] [address] LABORATORYOrdered By: Oswaldo Vásquez on 11-24-2021 Blood Glucose Interventions Administered agent to decrease blood sugar (11/24/21 11:28 AM) [facility] Work Phone: Blood Glucose Interventions Administered agent to decrease blood sugar (11/24/21 9:39 AM) [facility] Work Phone: Blood Glucose Interventions Administered agent to decrease blood sugar (11/24/21 7:27 AM) [facility] Work Phone: LABORATORYOrdered By: SYSTEM SYSTEM on [...] Absolute 0.1 10 3/mcL Normal 0.0-0.3 [facility] ([place] Comment on above: Performed By: #### H CTRP, HGBRP, GLURP, CLRP, NARP, BGRP, KRP, CARP #### [address] [address] Basophils/100 WBC (Bld) 0.3 % Normal 0.0-2.5 A [facility] ([place] Comment on above: Performed By: #### H CTRP, HGBRP, GLURP, CLRP, NARP, BGRP, KRP, CARP #### [address] [address] Eosinophil, Absolute 0.3 10 3/mcL Normal 0.0-0.7 [facility] ([place] Comment on above: Performed By: #### H CTRP, HGBRP, GLURP, CLRP, NARP, BGRP, KRP, CARP #### [address] [address] Eosinophils/100 WBC (Bld) 1.3 % Normal 0.0-6.0 [facility] ([place] Comment on above: Performed By: #### H CTRP, HGBRP, GLURP, CLRP, NARP, BGRP, KRP, CARP #### [address] [address] Lymphocyte, Absolute 2.6 10 3/mcL Normal 0.9-4.3 [facility] ([place] Comment on above: Performed By: #### H CTRP, HGBRP, GLURP, CLRP, NARP, BGRP, KRP, CARP #### [address] [address] Lymphocytes/100 WBC (Bld) 11.4 % Low 20.0-40.0 [facility] ([place] Comment on above: Performed By: #### H CTRP, HGBRP, GLURP, CLRP, NARP, BGRP, KRP, CARP #### [address] [address] Monocyte, Absolute 0.7 10 3/mcL Normal 0.1-1.4 [facility] ([place] Comment on above: Performed By: #### H CTRP, HGBRP, GLURP, CLRP, NARP, BGRP, KRP, CARP #### [address] [address] Monocytes/100 WBC (Bld) 3.1 % Normal 2.0-13.0 [facility] ([place] Comment on above: Performed By: #### H CTRP, HGBRP, GLURP, CLRP, NARP, BGRP, KRP, CARP #### [address] [address] Neutrophils/100 WBC (Bld) 83.9 % High 50.0-75.0 [facility] ([place] Comment on above: Performed By: #### H CTRP, HGBRP, GLURP, CLRP, NARP, BGRP, KRP, CARP #### [address] [address] .GFRon 11-23-2021 GFR Non- >60 Normal [facility] ([place] Comment on above: Result Comment: GFR Population [...] GLURP, CLRP, NARP, BGRP, KRP, CARP #### [address] [address] GFR >60 Normal [facility] ([place] Comment on above: Result Comment: GFR Population [...] GLURP, CLRP, NARP, BGRP, KRP, CARP #### [address] [address] .NEUABSon 11-23-2021 Neutrophil, Absolute 18.9 10 3/mcL High 2.3-8.1 A [facility] ([place] Comment on above: Performed By: #### H CTRP, HGBRP, GLURP, CLRP, NARP, BGRP, KRP, CARP #### [address] [address] ABO/Rh (Gel)on 11-23-2021 ABO/Rh Interp Positive Invalid Interpretation Code [facility] ([place] Comment on above: Performed By: #### H CTRP, HGBRP, GLURP, CLRP, NARP, BGRP, KRP, CARP #### [address] [address] ABS (Gel)on 11-23-2021 ABSC Interp (Gel) Negative Normal [facility] ([place] Comment on above: Performed By: #### H CTRP, HGBRP, GLURP, CLRP, NARP, BGRP, KRP, CARP #### [address] [address] APTTon 11-23-2021 aPTT Coag (Bld) [Time] 32.5 s Normal 25.0-35.0 [facility] ([place] Comment on above: Result Comment: For Heparin anticoagulation therapy, the recommended therapeutic range is: 54-77 seconds (APTT Correlation with Anti-Xa therapeutic range of 0.3-0.7 units/ml). PLEASE REFERENCE THE PHARMACY PROTOCOL FOR DOSING. Performed By: #### H CTRP, HGBRP, GLURP, CLRP, NARP, BGRP, KRP, CARP #### [place] [phone] Heparin dose (APTT) None Normal [facility] ([place] Comment on above: Performed By: #### H CTRP, HGBRP, GLURP, CLRP, NARP, BGRP, KRP, CARP #### [address] [address] aPTT Coag (Bld) [Time] 25.6 s Normal 25.0-35.0 [facility] ([place] Comment on above: Result Comment: For Heparin anticoagulation therapy, the recommended therapeutic range is: 54-77 seconds (APTT Correlation with Anti-Xa therapeutic range of 0.3-0.7 units/ml). PLEASE REFERENCE THE PHARMACY PROTOCOL FOR DOSING. Performed By: #### H CTRP, HGBRP, GLURP, CLRP, NARP, BGRP, KRP, CARP #### [address] [address] Heparin dose (APTT) Unknown Normal [facility] ([place] Comment on above: Performed By: #### H CTRP, HGBRP, GLURP, CLRP, NARP, BGRP, KRP, CARP #### [address] [address] BGon 11-23-2021 Barometric Pressure 735 mmHg Normal [facility] ([place] Comment on above: Performed By: #### K #### [address] [address] Base excess Calc (Bld) [Moles/Vol] -1.8000 mmol/L Normal [facility] ([place] Comment on above: Performed By: #### K #### [address] [address] CO2 [Moles/Vol] 28.0 mmol/L Normal 22.0-30.0 [facility] ([place] Comment on above: Performed By: #### K #### [place] [phone] HCO3 (Bld) [Moles/Vol] 26.2 mmol/L Normal 21.0-29.0 A [facility] ([place] Comment on above: Performed By: #### K #### [place] [phone] Oxygen (Bld) [Partial pressure] 108.5 mm[Hg] High 74.0-108.0 [facility] ([place] Comment on above: Performed By: #### K #### [place] [phone] Oxygen saturation in Blood 97.3 % High 92.0-96.0 [facility] ([place] Comment on above: Performed By: #### K #### [address] [address] pCO2 57.8 mmHg High 32.0-46.0 [facility] ([place] Comment on above: Performed By: #### K #### [address] [address] pH (Bld) 7.274 [pH] Low 7.380-7.460 [facility] ([place] Comment on above: Performed By: #### K #### [place] [phone] Barometric Pressure 708 mmHg Normal [facility] ([place] Comment on above: Performed By: #### H CTRP, HGBRP, GLURP, CLRP, NARP, BGRP, KRP, CARP #### [address] [address] Base excess Calc (Bld) [Moles/Vol] -2.2000 mmol/L Normal [facility] ([place] Comment on above: Performed By: #### H CTRP, HGBRP, GLURP, CLRP, NARP, BGRP, KRP, CARP #### [address] [address] CO2 [Moles/Vol] 27.8 mmol/L Normal 22.0-30.0 [facility] ([place] Comment on above: Performed By: #### H CTRP, HGBRP, GLURP, CLRP, NARP, BGRP, KRP, CARP #### [place] [phone] HCO3 (Bld) [Moles/Vol] 25.9 mmol/L Normal 21.0-29.0 [facility] ([place] Comment on above: Performed By: #### H CTRP, HGBRP, GLURP, CLRP, NARP, BGRP, KRP, CARP #### [address] [address] Oxygen (Bld) [Partial pressure] 97.0 mm[Hg] Normal 74.0-108.0 [facility] ([place] Comment on above: Performed By: #### H CTRP, HGBRP, GLURP, CLRP, NARP, BGRP, KRP, CARP #### [address] [address] Oxygen saturation in Blood 96.1 % High 92.0-96.0 [facility] ([place]) Comment on above: Performed By: #### H CTRP, HGBRP, GLURP, CLRP, NARP, BGRP, KRP, CARP #### [address] [address] pCO2 61.5 mmHg High 32.0-46.0 [facility] ([place]) Comment on above: Performed By: #### H CTRP, HGBRP, GLURP, CLRP, NARP, BGRP, KRP, CARP #### [address] [address] pH (Bld) 7.242 [pH] Low 7.380-7.460 [facility] ([place]) Comment on above: Performed By: #### H CTRP, HGBRP, GLURP, CLRP, NARP, BGRP, KRP, CARP #### [address] [address] Barometric Pressure 708 mmHg Normal [facility] ([place]) Comment on above: Order Comment: CPAP Performed By: #### H CTRP, HGBRP, GLURP, CLRP, NARP, BGRP, KRP, CARP #### [address] [address] Base excess Calc (Bld) [Moles/Vol] -1.1000 mmol/L Normal [facility] ([place]) Comment on above: Order Comment: CPAP Performed By: #### H CTRP, HGBRP, GLURP, CLRP, NARP, BGRP, KRP, CARP #### [address] [address] CO2 [Moles/Vol] 26.0 mmol/L Normal 22.0-30.0 [facility] ([place]) Comment on above: Order Comment: CPAP Performed By: #### H CTRP, HGBRP, GLURP, CLRP, NARP, BGRP, KRP, CARP #### [address] [address] HCO3 (Bld) [Moles/Vol] 24.6 mmol/L Normal 21.0-29.0 A [facility] ([place]) Comment on above: Order Comment: CPAP Performed By: #### H CTRP, HGBRP, GLURP, CLRP, NARP, BGRP, KRP, CARP #### [address] [address] Oxygen (Bld) [Partial pressure] 127.1 mm[Hg] High 74.0-108.0 [facility] ([place]) Comment on above: Order Comment: CPAP Performed By: #### H CTRP, HGBRP, GLURP, CLRP, NARP, BGRP, KRP, CARP #### [address] [address] Oxygen saturation in Blood 98.4 % High 92.0-96.0 [facility] ([place]) Comment on above: Order Comment: CPAP Performed By: #### H CTRP, HGBRP, GLURP, CLRP, NARP, BGRP, KRP, CARP #### [address] [address] pCO2 45.6 mmHg Normal 32.0-46.0 [facility] ([place]) Comment on above: Order Comment: CPAP Performed By: #### H CTRP, HGBRP, GLURP, CLRP, NARP, BGRP, KRP, CARP #### [address] [address] pH (Bld) 7.350 [pH] Low 7.380-7.460 [facility] ([place]) Comment on above: Order Comment: CPAP Performed By: #### H CTRP, HGBRP, GLURP, CLRP, NARP, BGRP, KRP, CARP #### [address] [address] Barometric Pressure 709 mmHg Normal [facility] ([place]) Comment on above: Performed By: #### H CTRP, HGBRP, GLURP, CLRP, NARP, BGRP, KRP, CARP #### [address] [address] Base excess Calc (Bld) [Moles/Vol] -1.4000 mmol/L Normal [facility] ([place]) Comment on above: Performed By: #### H CTRP, HGBRP, GLURP, CLRP, NARP, BGRP, KRP, CARP #### [address] [address] HCO3 (Bld) [Moles/Vol] 24.3 mmol/L Normal 21.0-29.0 A [facility] ([place]) Comment on above: Performed By: #### H CTRP, HGBRP, GLURP, CLRP, NARP, BGRP, KRP, CARP #### [address] [address] Oxygen (Bld) [Partial pressure] 118.0 mm[Hg] High 74.0-108.0 [facility] ([place]) Comment on above: Performed By: #### H CTRP, HGBRP, GLURP, CLRP, NARP, BGRP, KRP, CARP #### [address] [address] Oxygen saturation in Blood 98.2 % High 92.0-96.0 [facility] ([place]) Comment on above: Performed By: #### H CTRP, HGBRP, GLURP, CLRP, NARP, BGRP, KRP, CARP #### [address] [address] pCO2 44.8 mmHg Normal 32.0-46.0 [facility] ([place]) Comment on above: Performed By: #### H CTRP, HGBRP, GLURP, CLRP, NARP, BGRP, KRP, CARP #### [address] [address] pH (Bld) 7.352 [pH] Low 7.380-7.460 [facility] ([place]) Comment on above: Performed By: #### H CTRP, HGBRP, GLURP, CLRP, NARP, BGRP, KRP, CARP #### [address] [address] Barometric Pressure 706 mmHg Normal [facility] ([place]) Comment on above: Performed By: #### B G #### [address] [address] Base excess Calc (Bld) [Moles/Vol] -2.3000 mmol/L Normal [facility] ([place]) Comment on above: Performed By: #### B G #### [address] [address] CO2 [Moles/Vol] 24.6 mmol/L Normal 22.0-30.0 [facility] ([place]) Comment on above: Performed By: #### B G #### [place] [address] HCO3 (Bld) [Moles/Vol] 23.3 mmol/L Normal 21.0-29.0 A [facility] ([place]) Comment on above: Performed By: #### B G #### [place] [address] Oxygen (Bld) [Partial pressure] 98.4 mm[Hg] Normal 74.0-108.0 [facility] ([place]) Comment on above: Performed By: #### B G #### [place] [address] Oxygen saturation in Blood 97.4 % High 92.0-96.0 [facility] ([place]) Comment on above: Performed By: #### B G #### [place] [address] pCO2 43.4 mmHg Normal 32.0-46.0 [facility] ([place]) Comment on above: Performed By: #### B G #### [place] [address] pH (Bld) 7.348 [pH] Low 7.380-7.460 [facility] ([place]) Comment on above: Performed By: #### B G #### [place] [address] BGOrdered By: SYSTEM SYSTEM on 11-23-2021 CO2 [Moles/Vol] 25.7 mmol/L Normal 22.0-30.0 [facility] SS Comment on above: Performed By: #### H CTRP, HGBRP, GLURP, CLRP, NARP, BGRP, KRP, CARP #### [place] [address] Performed By: #### K #### [place] [address] BGRPon 11-23-2021 Base Excess - POC -2.6 mmol/L Normal [facility] ([place]) Comment on above: Performed By: #### H CTRP, HGBRP, GLURP, CLRP, NARP, BGRP, KRP, CARP #### [address] [address] CO2 [Moles/Vol] 23.5 mmol/L Normal 22.0-30.0 [facility] ([place]) Comment on above: Performed By: #### H CTRP, HGBRP, GLURP, CLRP, NARP, BGRP, KRP, CARP #### [place] [id number] HCO3 (Bld) [Moles/Vol] 22.3 mmol/L Normal 21.0-29.0 A [facility] ([place]) Comment on above: Performed By: #### H CTRP, HGBRP, GLURP, CLRP, NARP, BGRP, KRP, CARP #### [place] [address] Oxygen saturation in Blood 97.8 % High 92.0-96.0 [facility] ([place]) Comment on above: Performed By: #### H CTRP, HGBRP, GLURP, CLRP, NARP, BGRP, KRP, CARP #### [address] [address] PCO2 - POC 38.7 mmHg Normal 32.0-46.0 [facility] ([place]) Comment on above: Performed By: #### H CTRP, HGBRP, GLURP, CLRP, NARP, BGRP, KRP, CARP #### [place] [id number] pH (poct) - POC 7.378 Low 7.380-7.460 [facility] ([place]) Comment on above: Performed By: #### H CTRP, HGBRP, GLURP, CLRP, NARP, BGRP, KRP, CARP #### [place] [id number] PO2 - POC 123.0 mmHg High 74.0-108.0 [facility] ([place]) Comment on above: Performed By: #### H CTRP, HGBRP, GLURP, CLRP, NARP, BGRP, KRP, CARP #### [place] [id number] Base Excess - POC -3.2 mmol/L Normal [facility] ([place]) Comment on above: Performed By: #### H CTRP, HGBRP, GLURP, CLRP, NARP, BGRP, KRP, CARP #### [address] [address] CO2 [Moles/Vol] 22.8 mmol/L Normal 22.0-30.0 [facility] ([place]) Comment on above: Performed By: #### H CTRP, HGBRP, GLURP, CLRP, NARP, BGRP, KRP, CARP #### [place] [id number] HCO3 (Bld) [Moles/Vol] 21.7 mmol/L Normal 21.0-29.0 A [facility] ([place]) Comment on above: Performed By: #### H CTRP, HGBRP, GLURP, CLRP, NARP, BGRP, KRP, CARP #### [place] [id number] Oxygen saturation in Blood 99.2 % High 92.0-96.0 [facility] ([place]) Comment on above: Performed By: #### H CTRP, HGBRP, GLURP, CLRP, NARP, BGRP, KRP, CARP #### [place] [id number] PCO2 - POC 37.9 mmHg Normal 32.0-46.0 [facility] ([place]) Comment on above: Performed By: #### H CTRP, HGBRP, GLURP, CLRP, NARP, BGRP, KRP, CARP #### [address] [address] pH (poct) - POC 7.375 Low 7.380-7.460 [facility] ([place]) Comment on above: Performed By: #### H CTRP, HGBRP, GLURP, CLRP, NARP, BGRP, KRP, CARP #### [place] [id number] PO2 - POC 428.4 mmHg High 74.0-108.0 [facility] ([place]) Comment on above: Performed By: #### H CTRP, HGBRP, GLURP, CLRP, NARP, BGRP, KRP, CARP #### [address] [address] Base Excess - POC -0.5 mmol/L Normal [facility] ([place]) Comment on above: Performed By: #### K #### [place] [id number] Oxygen saturation in Blood 99.0 % High 92.0-96.0 [facility] ([place]) Comment on above: Performed By: #### K #### [place] [address] PCO2 - POC 41.5 mmHg Normal 32.0-46.0 [facility] ([place]) Comment on above: Performed By: #### K #### [place] [id number] pH (poct) - POC 7.388 Normal 7.380-7.460 [facility] ([place]) Comment on above: Performed By: #### K #### [place] [address] PO2 - POC 450.3 mmHg High 74.0-108.0 [facility] ([place]) Comment on above: Performed By: #### K #### [place] [address] Base Excess - POC -1.4 mmol/L Normal [facility] ([place]) Comment on above: Performed By: #### H CTRP, HGBRP, GLURP, CLRP, NARP, BGRP, KRP, CARP #### [address] [address] CO2 [Moles/Vol] 24.0 mmol/L Normal 22.0-30.0 [facility] ([place]) Comment on above: Performed By: #### H CTRP, HGBRP, GLURP, CLRP, NARP, BGRP, KRP, CARP #### [address] [address] HCO3 (Bld) [Moles/Vol] 22.8 mmol/L Normal 21.0-29.0 A [facility] ([place]) Comment on above: Performed By: #### H CTRP, HGBRP, GLURP, CLRP, NARP, BGRP, KRP, CARP #### [address] [address] Oxygen saturation in Blood 99.4 % High 92.0-96.0 [facility] ([place]) Comment on above: Performed By: #### H CTRP, HGBRP, GLURP, CLRP, NARP, BGRP, KRP, CARP #### [place] [phone] PCO2 - POC 36.7 mmHg Normal 32.0-46.0 [facility] ([place] Comment on above: Performed By: #### H CTRP, HGBRP, GLURP, CLRP, NARP, BGRP, KRP, CARP #### [place] [id number] pH (poct) - POC 7.412 Normal 7.380-7.460 [facility] ([place] Comment on above: Performed By: #### H CTRP, HGBRP, GLURP, CLRP, NARP, BGRP, KRP, CARP #### [address] [address] PO2 - POC 386.4 mmHg High 74.0-108.0 [facility] ([place]) Comment on above: Performed By: #### H CTRP, HGBRP, GLURP, CLRP, NARP, BGRP, KRP, CARP #### [place] [id number] Base Excess - POC -0.6 mmol/L Normal [facility] ([place]) Comment on above: Performed By: #### H CTRP, HGBRP, GLURP, CLRP, NARP, BGRP, KRP, CARP #### [place] [id number] CO2 [Moles/Vol] 25.9 mmol/L Normal 22.0-30.0 [facility] ([place] Comment on above: Performed By: #### H CTRP, HGBRP, GLURP, CLRP, NARP, BGRP, KRP, CARP #### [place] [address] HCO3 (Bld) [Moles/Vol] 24.6 mmol/L Normal 21.0-29.0 A [facility] ([place]) Comment on above: Performed By: #### H CTRP, HGBRP, GLURP, CLRP, NARP, BGRP, KRP, CARP #### [place] [address] Oxygen saturation in Blood 99.4 % High 92.0-96.0 [facility] ([place] Comment on above: Performed By: #### H CTRP, HGBRP, GLURP, CLRP, NARP, BGRP, KRP, CARP #### [place] [address] PCO2 - POC 42.3 mmHg Normal 32.0-46.0 [facility] ([place] Comment on above: Performed By: #### H CTRP, HGBRP, GLURP, CLRP, NARP, BGRP, KRP, CARP #### [place] [address] pH (poct) - POC 7.382 Normal 7.380-7.460 [facility] ([place] Comment on above: Performed By: #### H CTRP, HGBRP, GLURP, CLRP, NARP, BGRP, KRP, CARP #### [place] [address] PO2 - POC 338.4 mmHg High 74.0-108.0 [facility] ([place]) Comment on above: Performed By: #### H CTRP, HGBRP, GLURP, CLRP, NARP, BGRP, KRP, CARP #### [place] [address] BGRPOrdered By: SYSTEM [employer] on 11-23-2021 HCO3 (Bld) [Moles/Vol] 24.4 mmol/L Normal 21.0-29.0 A [facility] SS Comment on above: Performed By: #### K #### [address] [address] BMPon 11-23-2021 BUN/Creatinine Ratio 18.9 ratio Normal 10.0-22.0 [facility] ([place] Comment on above: Performed By: #### H CTRP, HGBRP, GLURP, CLRP, NARP, BGRP, KRP, CARP #### [address] [address] Calcium [Mass/Vol] 8.1 mg/dL Low 8.7-10.4 [facility] ([place] Comment on above: Performed By: #### H CTRP, HGBRP, GLURP, CLRP, NARP, BGRP, KRP, CARP #### [address] [address] Chloride [Moles/Vol] 108 mmol/L Normal 98-110 [facility] ([place]) Comment on above: Performed By: #### H CTRP, HGBRP, GLURP, CLRP, NARP, BGRP, KRP, CARP #### [address] [address] CO2 [Moles/Vol] 24 mmol/L Normal 22-32 [facility] ([place]) Comment on above: Performed By: #### H CTRP, HGBRP, GLURP, CLRP, NARP, BGRP, KRP, CARP #### [address] [address] Creatinine [Mass/Vol] 0.74 mg/dL Normal 0.50-1.20 [facility] ([place]) Comment on above: Performed By: #### H CTRP, HGBRP, GLURP, CLRP, NARP, BGRP, KRP, CARP #### [address] [address] Electrolyte Balance 9.0 mEq/L Normal 4.0-15.0 [facility] ([place]) Comment on above: Performed By: #### H CTRP, HGBRP, GLURP, CLRP, NARP, BGRP, KRP, CARP #### [address] [address] Glucose [Mass/Vol] 152 mg/dL High 82-115 [facility] ([place]) Comment on above: Performed By: #### H CTRP, HGBRP, GLURP, CLRP, NARP, BGRP, KRP, CARP #### [address] [address] Potassium [Moles/Vol] 4.1 mmol/L Normal 3.5-5.0 [facility] ([place]) Comment on above: Performed By: #### H CTRP, HGBRP, GLURP, CLRP, NARP, BGRP, KRP, CARP #### [address] [address] Sodium [Moles/Vol] 141 mmol/L Normal 136-145 [facility] ([place] Comment on above: Performed By: #### H CTRP, HGBRP, GLURP, CLRP, NARP, BGRP, KRP, CARP #### [address] [address] Urea nitrogen [Mass/Vol] 14.0 mg/dL Normal 8.0-22.0 [facility] ([place] Comment on above: Performed By: #### H CTRP, HGBRP, GLURP, CLRP, NARP, BGRP, KRP, CARP #### [address] [address] CAIONon 11-23-2021 Calcium Ionized 1.02 mmol/L Low 1.12-1.32 [facility] ([place] Comment on above: Performed By: #### H CTRP, HGBRP, GLURP, CLRP, NARP, BGRP, KRP, CARP #### [address] [address] CARPon 11-23-2021 Ionized Calcium - POC 0.99 mmol/L Low 1.12-1.32 [facility] ([place]) Comment on above: Performed By: #### H CTRP, HGBRP, GLURP, CLRP, NARP, BGRP, KRP, CARP #### [place] [address] Ionized Calcium - POC 1.04 mmol/L Low 1.12-1.32 [facility] ([place]) Comment on above: Performed By: #### H CTRP, HGBRP, GLURP, CLRP, NARP, BGRP, KRP, CARP #### [place] [address] Ionized Calcium - POC 0.98 mmol/L Low 1.12-1.32 [facility] ([place]) Comment on above: Performed By: #### K #### [place] [address] Ionized Calcium - POC 1.09 mmol/L Low 1.12-1.32 [facility] ([place] Comment on above: Performed By: #### H CTRP, HGBRP, GLURP, CLRP, NARP, BGRP, KRP, CARP #### [place] [address] Ionized Calcium - POC 1.17 mmol/L Normal 1.12-1.32 [facility] ([place] Comment on above: Performed By: #### H CTRP, HGBRP, GLURP, CLRP, NARP, BGRP, KRP, CARP #### [place] [address] CBCon 11-23-2021 Erythrocyte distribution width (RBC) [Ratio] 13.6 % Normal 11.5-15.5 [facility] ([place] Comment on above: Performed By: #### H CTRP, HGBRP, GLURP, CLRP, NARP, BGRP, KRP, CARP #### [place] [address] Hematocrit (Bld) [Volume fraction] 32.3 % Low 34.0-46.0 [facility] ([place] Comment on above: Performed By: #### H CTRP, HGBRP, GLURP, CLRP, NARP, BGRP, KRP, CARP #### [place] [address] Hgb 10.7 G/dL Low 12.0-16.0 [facility] ([place] Comment on above: Performed By: #### H CTRP, HGBRP, GLURP, CLRP, NARP, BGRP, KRP, CARP #### [place] [id number] MCH (RBC) [Entitic mass] 29.8 pg Normal 27.0-33.0 [facility] ([place] Comment on above: Performed By: #### H CTRP, HGBRP, GLURP, CLRP, NARP, BGRP, KRP, CARP #### [address] [address] MCHC 33.2 G/dL Normal 32.0-36.0 [facility] ([place] Comment on above: Performed By: #### H CTRP, HGBRP, GLURP, CLRP, NARP, BGRP, KRP, CARP #### [place] [address] MCV (RBC) [Entitic vol] 89.9 fL Normal 80.0-99.0 A [facility] ([place] Comment on above: Performed By: #### H CTRP, HGBRP, GLURP, CLRP, NARP, BGRP, KRP, CARP #### [place] [address] Platelet 220 10 3/mcL Normal 150-450 [facility] ([place] Comment on above: Performed By: #### H CTRP, HGBRP, GLURP, CLRP, NARP, BGRP, KRP, CARP #### [place] [address] Platelet mean volume (Bld) [Entitic vol] 8.6 fL Normal 6.6-10.5 [facility] ([place] Comment on above: Performed By: #### H CTRP, HGBRP, GLURP, CLRP, NARP, BGRP, KRP, CARP #### [place] [address] RBC 3.60 10 6/mcL Low 4.10-5.30 [facility] ([place] Comment on above: Performed By: #### H CTRP, HGBRP, GLURP, CLRP, NARP, BGRP, KRP, CARP #### [address] [address] WBC 22.5 10 3/mcL High 4.5-10.8 [facility] ([place] Comment on above: Performed By: #### H CTRP, HGBRP, GLURP, CLRP, NARP, BGRP, KRP, CARP #### [address] [address] CLRPon 11-23-2021 Chloride [Moles/Vol] 102 mmol/L Normal 98-110 [facility] ([place] Comment on above: Performed By: #### H CTRP, HGBRP, GLURP, CLRP, NARP, BGRP, KRP, CARP #### [address] [address] Chloride [Moles/Vol] 100 mmol/L Normal 98-110 [facility] ([place] Comment on above: Performed By: #### H CTRP, HGBRP, GLURP, CLRP, NARP, BGRP, KRP, CARP #### [address] [address] Chloride [Moles/Vol] 100 mmol/L Normal 98-110 [facility] ([place] Comment on above: Performed By: #### K #### [address] [address] Chloride [Moles/Vol] 103 mmol/L Normal 98-110 [facility] ([place] Comment on above: Performed By: #### H CTRP, HGBRP, GLURP, CLRP, NARP, BGRP, KRP, CARP #### [address] [address] Chloride [Moles/Vol] 102 mmol/L Normal 98-110 [facility] ([place] Comment on above: Performed By: #### H CTRP, HGBRP, GLURP, CLRP, NARP, BGRP, KRP, CARP #### [address] [address] FIBon 11-23-2021 Fibrinogen 313 mg/dL Normal 250-560 [facility] ([place] Comment on above: Performed By: #### H CTRP, HGBRP, GLURP, CLRP, NARP, BGRP, KRP, CARP #### [address] [address] Fibrinogen 491 mg/dL Normal 250-560 [facility] ([place] Comment on above: Performed By: #### H CTRP, HGBRP, GLURP, CLRP, NARP, BGRP, KRP, CARP #### [address] [address] GLURPon 11-23-2021 Glucose [Mass/Vol] 183 mg/dL High 82-115 [facility] ([place] Comment on above: Performed By: #### H CTRP, HGBRP, GLURP, CLRP, NARP, BGRP, KRP, CARP #### [address] [address] Glucose [Mass/Vol] 203 mg/dL High 82-115 [facility] ([place] Comment on above: Performed By: #### H CTRP, HGBRP, GLURP, CLRP, NARP, BGRP, KRP, CARP #### [address] [address] Glucose [Mass/Vol] 201 mg/dL High 82-115 [facility] ([place] Comment on above: Performed By: #### H CTRP, HGBRP, GLURP, CLRP, NARP, BGRP, KRP, CARP #### [address] [address] Glucose [Mass/Vol] 150 mg/dL High 82-115 [facility] ([place] Comment on above: Performed By: #### H CTRP, HGBRP, GLURP, CLRP, NARP, BGRP, KRP, CARP #### [address] [address] GLURPOrdered By: SYSTEM SYST EM on 11-23-2021 Glucose [Mass/Vol] 204 mg/dL High 82-115 Rap id Comm SS Comment on above: Performed By: #### K #### [place] [address] HCTRPon 11-23-2021 Hematocrit (Bld) [Volume fraction] 29.0 % Low 37.0-47.0 [facility] ([place] Comment on above: Performed By: #### H CTRP, HGBRP, GLURP, CLRP, NARP, BGRP, KRP, CARP #### [place] [address] Hematocrit (Bld) [Volume fraction] 29.0 % Low 37.0-47.0 [facility] ([place] Comment on above: Performed By: #### H CTRP, HGBRP, GLURP, CLRP, NARP, BGRP, KRP, CARP #### [place] [address] Hematocrit (Bld) [Volume fraction] 37.0 % Normal 37.0-47.0 [facility] ([place] Comment on above: Performed By: #### H CTRP, HGBRP, GLURP, CLRP, NARP, BGRP, KRP, CARP #### [place] [address] Hematocrit (Bld) [Volume fraction] 40.0 % Normal 37.0-47.0 [facility] ([place] Comment on above: Performed By: #### H CTRP, HGBRP, GLURP, CLRP, NARP, BGRP, KRP, CARP #### [place] [address] HCTRPOrdered By: SYSTEM SYST EM on 11-23-2021 Hematocrit (Bld) [Volume fraction] 28.0 % Low 37.0-47.0 Rapid Comm SS Comment on above: Performed By: #### K #### [place] [address] HGBRPon 11-23-2021 Hemoglobin (POC) 9.8 G/dL Low 12.0-16.0 [facility] ([place] Comment on above: Performed By: #### H CTRP, HGBRP, GLURP, CLRP, NARP, BGRP, KRP, CARP #### [address] [address] Hemoglobin (POC) 9.9 G/dL Low 12.0-16.0 [facility] ([place] Comment on above: Performed By: #### H CTRP, HGBRP, GLURP, CLRP, NARP, BGRP, KRP, CARP #### [place] [id number] Hemoglobin (POC) 9.5 G/dL Low 12.0-16.0 [facility] ([place] Comment on above: Performed By: #### K #### [place] [address] Hemoglobin (POC) 12.5 G/dL Normal 12.0-16.0 [facility] ([place] Comment on above: Performed By: #### H CTRP, HGBRP, GLURP, CLRP, NARP, BGRP, KRP, CARP #### [place] [address] Hemoglobin (POC) 13.7 G/dL Normal 12.0-16.0 [facility] ([place] Comment on above: Performed By: #### H CTRP, HGBRP, GLURP, CLRP, NARP, BGRP, KRP, CARP #### [place] [id number] Jayden 11-23-2021 Potassium [Moles/Vol] 4.2 mmol/L Normal 3.5-5.0 [facility] ([place] Comment on above: Performed By: #### H CTRP, HGBRP, GLURP, CLRP, NARP, BGRP, KRP, CARP #### [place] [address] KRPon 11-23-2021 Potassium [Moles/Vol] 4.2 mmol/L Normal 3.5-5.0 [facility] ([place] Comment on above: Performed By: #### H CTRP, HGBRP, GLURP, CLRP, NARP, BGRP, KRP, CARP #### [place] [address] Potassium [Moles/Vol] 4.3 mmol/L Normal 3.5-5.0 [facility] ([place]) Comment on above: Performed By: #### H CTRP, HGBRP, GLURP, CLRP, NARP, BGRP, KRP, CARP #### [place] [address] Potassium [Moles/Vol] 4.2 mmol/L Normal 3.5-5.0 [facility] ([place]) Comment on above: Performed By: #### H CTRP, HGBRP, GLURP, CLRP, NARP, BGRP, KRP, CARP #### [place] [address] Potassium [Moles/Vol] 3.9 mmol/L Normal 3.5-5.0 [facility] ([place]) Comment on above: Performed By: #### H CTRP, HGBRP, GLURP, CLRP, NARP, BGRP, KRP, CARP #### [place] [address] KRPOrdered By: SYSTEM SYSTEM on 11-23-2021 Potassium [Moles/Vol] 5.1 mmol/L High 3.5-5.0 AH Rapid Comm SS Comment on above: Performed By: #### K #### [place] [address] LABORATORYOrdered By: Angie Mujica on 11-23-2021 aPTT [...] 1.32 mmol/L Auto Chem SS LABORATORYOrdered By: [id number] SYSTEM on 11-23-2021 Magnesium [Mass/Vol] 2.5 mg/dL [...] Magnesium [Mass/Vol] 2.5 mg/dL High 1.6-2.4 [facility] ([place]) Comment on above: Performed By: #### H CTRP, HGBRP, GLURP, CLRP, NARP, BGRP, KRP, CARP #### [facility] [address] [place] [address] NARPon 11-23-2021 Sodium [Moles/Vol] 134 mmol/L Low 136-145 [facility] ([place] Comment on above: Performed By: #### H CTRP, HGBRP, GLURP, CLRP, NARP, BGRP, KRP, CARP #### [place] [id number] Sodium [Moles/Vol] 132 mmol/L Low 136-145 [facility] ([place] Comment on above: Performed By: #### H CTRP, HGBRP, GLURP, CLRP, NARP, BGRP, KRP, CARP #### [place] [address] Sodium [Moles/Vol] 132 mmol/L Low 136-145 [facility] ([place] Comment on above: Performed By: #### K #### [place] [address] Sodium [Moles/Vol] 134 mmol/L Low 136-145 [facility] ([place] Comment on above: Performed By: #### H CTRP, HGBRP, GLURP, CLRP, NARP, BGRP, KRP, CARP #### [place] [address] Sodium [Moles/Vol] 136 mmol/L Normal 136-145 [facility] ([place]) Comment on above: Performed By: #### H CTRP, HGBRP, GLURP, CLRP, NARP, BGRP, KRP, CARP #### [place] [address] PHOSon 11-23-2021 Phosphate [Mass/Vol] 1.5 mg/dL Low 2.4-5.1 [facility] ([place]) Comment on above: Result Comment: No te - New Reference Range in effect 19 Performed By: #### H CTRP, HGBRP, GLURP, CLRP, NARP, BGRP, KRP, CARP #### [place] [address] PLTon 11-23-2021 Platelet 283 10 3/mcL Normal 150-450 [facility] ([place]) Comment on above: Performed By: #### H CTRP, HGBRP, GLURP, CLRP, NARP, BGRP, KRP, CARP #### [place] [id number] PROon 11-23-2021 INR Coag (PPP) [Relative time] 1.1 {INR} Normal [facility] ([place]) Comment on above: Result Comment: [employer] (CHEST, 1991, [id number]) recommended therapeutic range for oral anticoagulant therapy is: LOW RISK: Prophylaxis of venous thrombosis INR: 2.0-3.0 Treatment of pulmonary embolism 2.0-3.0 Prevention of systemic embolism 2.0-3.0 HIGH RISK: Mechanical prosthetic valves 2.5-3.5 Performed By: #### H CTRP, HGBRP, GLURP, CLRP, NARP, BGRP, KRP, CARP #### [facility] [address] [place] [id number] PT Coag (PPP) [Time] 13.1 s Normal 9.0-14.9 [facility] ([place]) Comment on above: Result Comment: Effe ctive 09/30/07, Protime results may be affected by some antibiotics (i.e. Ciprofloxacin, Azithromycin, Bactrim) which may potentiate the action of oral anticoagulants, with further increases in Protime/INR. Performed By: #### H CTRP, HGBRP, GLURP, CLRP, NARP, BGRP, KRP, CARP #### [address] [address] INR Coag (PPP) [Relative time] 0.9 {INR} Normal [facility] ([place]) Comment on above: Result Comment: [employer] (CHEST, 1991, 102:312S-25S) recommended therapeutic range for oral anticoagulant therapy is: LOW RISK: Prophylaxis of venous thrombosis INR: 2.0-3.0 Treatment of pulmonary embolism 2.0-3.0 Prevention of systemic embolism 2.0-3.0 HIGH RISK: Mechanical prosthetic valves 2.5-3.5 Performed By: #### H CTRP, HGBRP, GLURP, CLRP, NARP, BGRP, KRP, CARP #### [facility] [address] [place] [address] PT Coag (PPP) [Time] 10.8 s Normal 9.0-14.9 [facility] ([place]) Comment on above: Result Comment: Effe ctive 09/30/07, Protime results may be affected by some antibiotics (i.e. Ciprofloxacin, Azithromycin, Bactrim) which may potentiate the action of oral anticoagulants, with further increases in Protime/INR. Performed By: #### H CTRP, HGBRP, GLURP, CLRP, NARP, BGRP, KRP, CARP #### [address] [address] Platelet (Product)on Platelet Product Ready Platelet Ready fo r Pickup Normal [facility] ([place]) Comment on above: Order Comment: ON HO LD FOR CVOR Performed By: #### H CTRP, HGBRP, GLURP, CLRP, NARP, BGRP, KRP, CARP #### [address] [address] RBC (Product)on 11-23-2021 RBC Product Ready RBC Ready for Pickup Normal [facility] ([place]) Comment on above: Performed By: #### H CTRP, HGBRP, GLURP, CLRP, NARP, BGRP, KRP, CARP #### [address] [address] XR CHEST 1 VIEWon 11-23-2021 XR CHEST [...] Polly Bitonte, DO Electronically signed By Polly Rma DO Dictated Date: 11/23/2021 1:38:02 PM Prelim Date: 11/23/2021 1:40:56 PM Sign Date: 11/23/2021 1:40:56 PM Ordering Provider: POLLY Mercado [facility] ([place]) [id number] 11-17-2021 SARS-CoV-2 (COVID-19) RNA SLOAN+probe Ql (Unsp spec) Negative Normal Negative [facility] ([place]) Comment on above: Performed By: #### H CTRP, HGBRP, GLURP, CLRP, NARP, BGRP, KRP, CARP #### [address] [address] SARS-CoV-2 (COVID-19) RNA SLOAN+probe Ql (Unsp spec) Normal [facility] ([place]) Comment on above: Result Comment: Nega tive [...] GLURP, CLRP, NARP, BGRP, KRP, CARP #### [address] [address] Date of Onset [id number] Invalid Interpretation Code [facility] ([place]) Comment on above: Performed By: #### H CTRP, HGBRP, GLURP, CLRP, NARP, BGRP, KRP, CARP #### [place] [address] Employed in Healthcare [facility] ([place] Comment on above: Performed By: #### H CTRP, HGBRP, GLURP, CLRP, NARP, BGRP, KRP, CARP #### [place] [address] First Test No [facility] ([place]) Comment on above: Performed By: #### H CTRP, HGBRP, GLURP, CLRP, NARP, BGRP, KRP, CARP #### [place] [address] Hospitalized No [facility] ([place]) Comment on above: Performed By: #### H CTRP, HGBRP, GLURP, CLRP, NARP, BGRP, KRP, CARP #### [place] [address] ICU No [facility] ([place] Comment on above: Performed By: #### H CTRP, HGBRP, GLURP, CLRP, NARP, BGRP, KRP, CARP #### [place] [address] Not [facility] ([place]) Comment on above: Performed By: #### H CTRP, HGBRP, GLURP, CLRP, NARP, BGRP, KRP, CARP #### [place] [address] Resides in Congregate Care Setting [facility] ([place]) Comment on above: Performed By: #### H CTRP, HGBRP, GLURP, CLRP, NARP, BGRP, KRP, CARP #### [place] [address] Symptomatic as Defined by [facility] No [facility] ([place]) Comment on above: Performed By: #### H CTRP, HGBRP, GLURP, CLRP, NARP, BGRP, KRP, CARP #### [place] [address] LABORATORYOrdered By: Emily Gee on 11-17-2021 ADMITTED [...] Auto (Unsp spec) [#/Vol] 3.11 10*3/uL 0.83-4.51 [facility] Work Phone: Basophil percentageon 2021 Basophils/100 WBC (Bld) 0.6 % 0-1 [facility] Work Phone: Chloride [Moles/Vol] 102 mmol/L 98-107 [facility] Work Phone: Eosinophils/100 WBC (Bld) 1.7 % 0-5 [facility] Work Phone: Glucose [Mass/Vol] 183 mg/dL 74-106 [facility] Work Phone: Comment on above: Fasting Glucose resu lt greater than or equal to 126 mg/dL suggests DIABETES MELLITUS per A.D.A. criteria. Neutrophils (Bld) [#/Vol] 11.0 10*3/uL 2.0-7.7 [facility] Work Phone: Neutrophils/100 WBC (Bld) 70.1 % 47-70 [facility] Work Phone: Potassium [Moles/Vol] 4.1 mmol/L 3.5-5.[address] [facility] Work Phone: Sodium [Moles/Vol] 136 mmol/L 136-145 [facility] Work Phone: WBC (Bld) [#/Vol] 15.7 10*3/uL 4.4-11.0 [facility] Work Phone: Blood erythrocytes count (nu mber/volume)on 11-05-2021 RBC (Bld) [#/Vol] 4.84 10*6/uL 4.2-5.4 [facility] Work Phone: Blood hemoglobin measurement (mass/volume)on 11-05-2021 Hemoglobin (Bld) [Mass/Vol] 14.4 g/dL 12.0-15.0 [facility] Work Phone: Blood lymphocytes/100 leukoc yteson 11-05-2021 Lymphocytes/100 WBC (Bld) 19.8 % 19-41 [facility] Work Phone: Blood monocytes/100 leukocyt eson 11-05-2021 Monocytes/100 WBC (Bld) 6.9 % 0-10 [facility] Work Phone: Blood platelet mean volumeon 11-05-2021 Platelet mean volume (Bld) [Entitic vol] 10.2 fL 6.2-12.0 [facility] Work Phone: Determination of erythrocyte mean corpuscular volume (MCV)on 11-05-2021 MCV (RBC) [Entitic vol] 91.3 fL 81-99 [facility] Work Phone: Hematocrit Auto (Bld) [Volum e fraction]on 11-05-2021 Hematocrit (Bld) [Volume fraction] 44.2 % 37-47 [facility] Work Phone: Laboratory - Chemistry and C hemistry - challengeon 11-05-2021 CO2 [Moles/Vol] 27.0 mmol/L 21.0-32.0 [facility] Work Phone: Urea nitrogen/Creatinine [Mass ratio] 19.9 mg/mg 10-20 [facility] Work Phone: Laboratory - Coagulationon 0 11-05-2021 aPTT Coag (Bld) [Time] 25.6 s 24.1-36.[address] [facility] Work Phone: Laboratory - Hematology and Cell countson 11-05-2021 Erythrocyte distribution width (RBC) [Entitic vol] 44.1 fL 35.1-43.9 [facility] Work Phone: Erythrocyte distribution width (RBC) [Ratio] 13.1 % 11.6-14.6 [facility] Work Phone: Immature granulocytes/100 WBC (Bld) 0.900 % 0.0-0.9 [facility] Work Phone: Comment on above: IG% - Immature Granu locytes (promyelocytes, myelocytes and metamyelocytes) > 1% indicates that a LEFT SHIFT is Present. MCH (RBC) [Entitic mass] 29.8 pg 27.0-32.0 [facility] Work Phone: [phone] Nucleated RBC/100 WBC (Bld) [Ratio] 0 % 0-5 [facility] Work Phone: [phone] MCHC Auto (RBC) [Mass/Vol]on 11-05-2021 MCHC (RBC) [Mass/Vol] 32.6 g/dL 32-[address] [facility] Work Phone: No Panel Informationon 11-05 Estimated Creatinine Clearance Calc 51.75 ml/min [facility] Work Phone: [phone] Estimated GFR (MDRD) Amer 91 mL/min >60 [facility] Work Phone: Comment on above: GFR Calc Estimated GFR (MDRD) Non-Af Amer 75 mL/min >60 [facility] Work Phone: [phone] Comment on above: Non- GFR Calc Troponin I High Sensitivity 12 pg/mL 3.0-54.0 [facility] Work Phone: [phone] Comment on above: Please Note: New [place] t Units and Gender Specific Reference Ranges. For more information see Policy Stat Procedure [place] High Sensitivity Troponin (TNIH) and attachments. Platelets bldon 11-05-2021 Platelets (Bld) [#/Vol] 320 10*3/uL 150-450 [facility] Work Phone: [phone] Serum or plasma calcium betsy urement (mass/volume)on 11-05-2021 Calcium [Mass/Vol] 9.6 mg/dL 8.5-10.1 [facility] Work Phone: [phone] Serum or plasma creatinine m easurement (mass/volume)on 11-05-2021 Creatinine [Mass/Vol] 0.80 mg/dL 0.55-1.[address] [facility] Work Phone: [phone] Comment on above: The validity of the calculated GFR & GFRAA in patients over 70 years has not been determined. Clinical correlation is essential. Serum or plasma urea nitroge n measurement (mass/volume)on 11-05-2021 Urea nitrogen [Mass/Vol] 16 mg/dL -18 [facility] Work Phone: Thin prep Papanicolaou smear with manual screeningon 11-05-2021 Thin prep Papanicolaou smear with manual screening 7 5-15 [facility] Work Phone: XR CHEST 2 VIEWSon XR [...] AM Ordering Provider: POLLY PHILIPPE [facility] ([place]) .Auto Diffon 10-31-2021 Basophil, Absolute 0.1 10 3/mcL Normal 0.0-0.3 [facility] ([place]) Comment on above: Performed By: #### H CTRP, HGBRP, GLURP, CLRP, NARP, BGRP, KRP, CARP #### [facility] [address] [place] [address] Basophils/100 WBC (Bld) 0.8 % Normal 0.0-2.5 A [facility] ([place]) Comment on above: Performed By: #### H CTRP, HGBRP, GLURP, CLRP, NARP, BGRP, KRP, CARP #### [address] [address] Eosinophil, Absolute 0.3 10 3/mcL Normal 0.0-0.7 [facility] ([place]) Comment on above: Performed By: #### H CTRP, HGBRP, GLURP, CLRP, NARP, BGRP, KRP, CARP #### [address] [address] Eosinophils/100 WBC (Bld) 2.6 % Normal 0.0-6.0 [facility] ([place]) Comment on above: Performed By: #### H CTRP, HGBRP, GLURP, CLRP, NARP, BGRP, KRP, CARP #### [address] [address] Lymphocyte, Absolute 2.5 10 3/mcL Normal 0.9-4.3 [facility] ([place]) Comment on above: Performed By: #### H CTRP, HGBRP, GLURP, CLRP, NARP, BGRP, KRP, CARP #### [address] [address] Lymphocytes/100 WBC (Bld) 22.3 % Normal 20.0-40.0 [facility] ([place]) Comment on above: Performed By: #### H CTRP, HGBRP, GLURP, CLRP, NARP, BGRP, KRP, CARP #### [address] [address] Monocyte, Absolute 0.7 10 3/mcL Normal 0.1-1.4 [facility] ([place]) Comment on above: Performed By: #### H CTRP, HGBRP, GLURP, CLRP, NARP, BGRP, KRP, CARP #### [address] [address] Monocytes/100 WBC (Bld) 6.5 % Normal 2.0-13.0 [facility] ([place]) Comment on above: Performed By: #### H CTRP, HGBRP, GLURP, CLRP, NARP, BGRP, KRP, CARP #### [address] [address] Neutrophils/100 WBC (Bld) 67.8 % Normal 50.0-75.0 [facility] ([place] Comment on above: Performed By: #### H CTRP, HGBRP, GLURP, CLRP, NARP, BGRP, KRP, CARP #### [address] [address] .GFRon 10-31-2021 GFR Non- >60 Normal [facility] ([place]) Comment on above: Result Comment: GFR Population [...] GLURP, CLRP, NARP, BGRP, KRP, CARP #### [address] [address] GFR >60 Normal [facility] ([place]) Comment on above: Result Comment: GFR Population [...] GLURP, CLRP, NARP, BGRP, KRP, CARP #### [place] [address] .MDWon 10-31-2021 Monocyte Distribution Width Not performed Normal 0.00-20.00 [facility] ([place]) Comment on above: Result Comment: MDW testing performed only on adult ER patients between the ages of 18-89 years. Performed By: #### H CTRP, HGBRP, GLURP, CLRP, NARP, BGRP, KRP, CARP #### [place] [address] .NEUABSon 10-31-2021 Neutrophil, Absolute 7.7 10 3/mcL Normal 2.3-8.1 [facility] ([place] Comment on above: Performed By: #### H CTRP, HGBRP, GLURP, CLRP, NARP, BGRP, KRP, CARP #### [place] [address] A1Con 10-31-2021 HbA1c (Bld) [Mass fraction] 9.7 % High 4.0-6.0 [facility] ([place]) Comment on above: Performed By: #### H CTRP, HGBRP, GLURP, CLRP, NARP, BGRP, KRP, CARP #### [place] [address] ABO/Rh (Gel)on 10-31-2021 ABO/Rh Interp Positive Invalid Interpretation Code [facility] ([place] Comment on above: Performed By: #### H CTRP, HGBRP, GLURP, CLRP, NARP, BGRP, KRP, CARP #### [place] [id number] ABS (Gel)on 10-31-2021 ABSC Interp (Gel) Negative Normal [facility] ([place] Comment on above: Performed By: #### H CTRP, HGBRP, GLURP, CLRP, NARP, BGRP, KRP, CARP #### [place] [phone] APTTon 10-31-2021 aPTT Coag (Bld) [Time] 28.2 s Normal 25.0-35.0 [facility] ([place]) Comment on above: Result Comment: For Heparin anticoagulation therapy, the recommended therapeutic range is: 54-77 seconds (APTT Correlation with Anti-Xa therapeutic range of 0.3-0.7 units/ml). PLEASE REFERENCE THE PHARMACY PROTOCOL FOR DOSING. Performed By: #### H CTRP, HGBRP, GLURP, CLRP, NARP, BGRP, KRP, CARP #### [place] [address] Heparin dose (APTT) None Normal [facility] ([place]) Comment on above: Performed By: #### H CTRP, HGBRP, GLURP, CLRP, NARP, BGRP, KRP, CARP #### [place] [address] CBCon 10-31-2021 Erythrocyte distribution width (RBC) [Ratio] 13.6 % Normal 11.5-15.5 [facility] ([place]) Comment on above: Performed By: #### H CTRP, HGBRP, GLURP, CLRP, NARP, BGRP, KRP, CARP #### [place] [address] Hematocrit (Bld) [Volume fraction] 40.5 % Normal 34.0-46.0 [facility] ([place] Comment on above: Performed By: #### H CTRP, HGBRP, GLURP, CLRP, NARP, BGRP, KRP, CARP #### [place] [address] Hgb 13.4 G/dL Normal 12.0-16.0 [facility] ([place] Comment on above: Performed By: #### H CTRP, HGBRP, GLURP, CLRP, NARP, BGRP, KRP, CARP #### [place] [address] MCH (RBC) [Entitic mass] 29.8 pg Normal 27.0-33.0 [facility] ([place] Comment on above: Performed By: #### H CTRP, HGBRP, GLURP, CLRP, NARP, BGRP, KRP, CARP #### [place] [id number] MCHC 33.1 G/dL Normal 32.0-36.0 [facility] ([place] Comment on above: Performed By: #### H CTRP, HGBRP, GLURP, CLRP, NARP, BGRP, KRP, CARP #### [place] [address] MCV (RBC) [Entitic vol] 90.0 fL Normal 80.0-99.0 A [facility] ([place] Comment on above: Performed By: #### H CTRP, HGBRP, GLURP, CLRP, NARP, BGRP, KRP, CARP #### [place] [address] Platelet 291 10 3/mcL Normal 150-450 [facility] ([place]) Comment on above: Performed By: #### H CTRP, HGBRP, GLURP, CLRP, NARP, BGRP, KRP, CARP #### [place] [address] Platelet mean volume (Bld) [Entitic vol] 8.9 fL Normal 6.6-10.5 [facility] ([place] Comment on above: Performed By: #### H CTRP, HGBRP, GLURP, CLRP, NARP, BGRP, KRP, CARP #### [place] [address] RBC 4.50 10 6/mcL Normal 4.10-5.30 [facility] ([place] Comment on above: Performed By: #### H CTRP, HGBRP, GLURP, CLRP, NARP, BGRP, KRP, CARP #### [place] [address] WBC 11.4 10 3/mcL High 4.5-10.8 [facility] ([place] Comment on above: Performed By: #### H CTRP, HGBRP, GLURP, CLRP, NARP, BGRP, KRP, CARP #### [address] [address] CMPon 10-31-2021 Albumin Level 3.4 G/dL Normal 3.2-4.8 [facility] ([place] Comment on above: Performed By: #### H CTRP, HGBRP, GLURP, CLRP, NARP, BGRP, KRP, CARP #### [address] [address] Albumin/Globulin [Mass ratio] 1.0 {ratio} Normal 0.9-1.6 [facility] ([place] Comment on above: Performed By: #### H CTRP, HGBRP, GLURP, CLRP, NARP, BGRP, KRP, CARP #### [address] [address] ALP [Catalytic activity/Vol] 113 U/L Normal 38-126 [facility] ([place] Comment on above: Performed By: #### H CTRP, HGBRP, GLURP, CLRP, NARP, BGRP, KRP, CARP #### [address] [address] ALT [Catalytic activity/Vol] 25 U/L Normal 10-49 [facility] ([place] Comment on above: Performed By: #### H CTRP, HGBRP, GLURP, CLRP, NARP, BGRP, KRP, CARP #### [address] [address] AST [Catalytic activity/Vol] 24 U/L Normal 8-34 [facility] ([place]) Comment on above: Performed By: #### H CTRP, HGBRP, GLURP, CLRP, NARP, BGRP, KRP, CARP #### [address] [address] Bili Total 0.50 mg/dL Normal 0.20-1.20 [facility] ([place]) Comment on above: Result Comment: Use of this assay is not recommended for patients undergoing treatment with eltrombopag due to the potential for falsely elevated results. Performed By: #### H CTRP, HGBRP, GLURP, CLRP, NARP, BGRP, KRP, CARP #### [address] [address] BUN/Creatinine Ratio 27.6 ratio High 10.0-22.0 [facility] ([place]) Comment on above: Performed By: #### H CTRP, HGBRP, GLURP, CLRP, NARP, BGRP, KRP, CARP #### [address] [address] Calcium [Mass/Vol] 9.6 mg/dL Normal 8.7-10.4 [facility] ([place]) Comment on above: Performed By: #### H CTRP, HGBRP, GLURP, CLRP, NARP, BGRP, KRP, CARP #### [address] [address] Chloride [Moles/Vol] 98 mmol/L Normal 98-110 [facility] ([place]) Comment on above: Performed By: #### H CTRP, HGBRP, GLURP, CLRP, NARP, BGRP, KRP, CARP #### [address] [address] CO2 [Moles/Vol] 31 mmol/L Normal 22-32 [facility] ([place] Comment on above: Performed By: #### H CTRP, HGBRP, GLURP, CLRP, NARP, BGRP, KRP, CARP #### [address] [address] Creatinine [Mass/Vol] 0.76 mg/dL Normal 0.50-1.20 [facility] ([place]) Comment on above: Performed By: #### H CTRP, HGBRP, GLURP, CLRP, NARP, BGRP, KRP, CARP #### [address] [address] Electrolyte Balance 5.0 mEq/L Normal 4.0-15.0 [facility] ([place] Comment on above: Performed By: #### H CTRP, HGBRP, GLURP, CLRP, NARP, BGRP, KRP, CARP #### [address] [address] Globulin 3.5 G/dL Normal 1.5-3.8 [facility] ([place] Comment on above: Performed By: #### H CTRP, HGBRP, GLURP, CLRP, NARP, BGRP, KRP, CARP #### [address] [address] Glucose [Mass/Vol] 233 mg/dL High 82-115 [facility] ([place]) Comment on above: Performed By: #### H CTRP, HGBRP, GLURP, CLRP, NARP, BGRP, KRP, CARP #### [address] [address] Potassium [Moles/Vol] 5.0 mmol/L Normal 3.5-5.0 [facility] ([place]) Comment on above: Performed By: #### H CTRP, HGBRP, GLURP, CLRP, NARP, BGRP, KRP, CARP #### [address] [address] Sodium [Moles/Vol] 134 mmol/L Low 136-145 [facility] ([place] Comment on above: Performed By: #### H CTRP, HGBRP, GLURP, CLRP, NARP, BGRP, KRP, CARP #### [address] [address] Total Protein 6.9 G/dL Normal 5.7-8.2 [facility] ([place]) Comment on above: Result Comment: No te - New Reference Range in effect 19 Performed By: #### H CTRP, HGBRP, GLURP, CLRP, NARP, BGRP, KRP, CARP #### [address] [address] Urea nitrogen [Mass/Vol] 21.0 mg/dL Normal 8.0-22.0 [facility] ([place] Comment on above: Performed By: #### H CTRP, HGBRP, GLURP, CLRP, NARP, BGRP, KRP, CARP #### [address] [address] FIBon 10-31-2021 Fibrinogen 504 mg/dL Normal 250-560 [facility] ([place] Comment on above: Performed By: #### H CTRP, HGBRP, GLURP, CLRP, NARP, BGRP, KRP, CARP #### [address] [address] PROon 10-31-2021 INR Coag (PPP) [Relative time] 0.9 {INR} Normal [facility] ([place]) Comment on above: Result Comment: [employer] (CHEST, 1992, 102:312S-25S) recommended therapeutic range for oral anticoagulant therapy is: LOW RISK: Prophylaxis of venous thrombosis INR: 2.0-3.0 Treatment of pulmonary embolism 2.0-3.0 Prevention of systemic embolism 2.0-3.0 HIGH RISK: Mechanical prosthetic valves 2.5-3.5 Performed By: #### H CTRP, HGBRP, GLURP, CLRP, NARP, BGRP, KRP, CARP #### [address] [address] PT Coag (PPP) [Time] 10.9 s Normal 9.0-14.9 [facility] ([place]) Comment on above: Result Comment: Effe ctive 09/30/07, Protime results may be affected by some antibiotics (i.e. Ciprofloxacin, Azithromycin, Bactrim) which may potentiate the action of oral anticoagulants, with further increases in Protime/INR. Performed By: #### H CTRP, HGBRP, GLURP, CLRP, NARP, BGRP, KRP, CARP #### [address] [address] TSHon 10-31-2021 TSH 9.830 mIU/mL High 0.550-4.780 [facility] ([place] Comment on above: Result Comment: No te - New Reference Range in effect 19 Performed By: #### H CTRP, HGBRP, GLURP, CLRP, NARP, BGRP, KRP, CARP #### [address] [address] UAon 10-31-2021 Color (U) Straw Normal [facility] ([place] Comment on above: Performed By: #### H CTRP, HGBRP, GLURP, CLRP, NARP, BGRP, KRP, CARP #### [address] [address] Glucose (U) [Mass/Vol] 500 mg/dL Abnormal Negative [facility] ([place]) Comment on above: Performed By: #### H CTRP, HGBRP, GLURP, CLRP, NARP, BGRP, KRP, CARP #### [place] [address] Ketones Ql (U) Negative Normal Neg-Trace [facility] ([place] Comment on above: Performed By: #### H CTRP, HGBRP, GLURP, CLRP, NARP, BGRP, KRP, CARP #### [place] [address] UA Appear Clear Normal Clear [facility] ([place] Comment on above: Performed By: #### H CTRP, HGBRP, GLURP, CLRP, NARP, BGRP, KRP, CARP #### [place] [address] UA Blood Negative Normal Neg-Trace [facility] ([place] Comment on above: Performed By: #### H CTRP, HGBRP, GLURP, CLRP, NARP, BGRP, KRP, CARP #### [place] [id number] UA Leuk Est Small Abnormal Negative [facility] ([place] Comment on above: Performed By: #### H CTRP, HGBRP, GLURP, CLRP, NARP, BGRP, KRP, CARP #### [place] [id number] UA Nitrite Negative Normal Negative [facility] ([place] Comment on above: Performed By: #### H CTRP, HGBRP, GLURP, CLRP, NARP, BGRP, KRP, CARP #### [place] [address] UA pH 5.5 Normal 5.0 - 8.0 [facility] ([place] Comment on above: Performed By: #### H CTRP, HGBRP, GLURP, CLRP, NARP, BGRP, KRP, CARP #### [address] [address] UA Protein Negative Normal Negative [facility] ([place] Comment on above: Performed By: #### H CTRP, HGBRP, GLURP, CLRP, NARP, BGRP, KRP, CARP #### [address] [address] UA Spec Grav 1.010 Normal 1.006-1.029 [facility] ([place] Comment on above: Performed By: #### H CTRP, HGBRP, GLURP, CLRP, NARP, BGRP, KRP, CARP #### [place] [address] UA Specimen Type Clean Catch Normal [facility] ([place]) Comment on above: Performed By: #### H CTRP, HGBRP, GLURP, CLRP, NARP, BGRP, KRP, CARP #### [address] [address] UA Urobilinogen 0.2 E.U./dL Normal 0.2-1.0 [facility] ([place] Comment on above: Performed By: #### H CTRP, HGBRP, GLURP, CLRP, NARP, BGRP, KRP, CARP #### [place] [address] Urobilinogen (U) [Mass/Vol] Negative Normal Neg-Trace [facility] ([place] Comment on above: Performed By: #### H CTRP, HGBRP, GLURP, CLRP, NARP, BGRP, KRP, CARP #### [address] [address] UAMICon 10-31-2021 UA RBC Negative Normal 0-2 [facility] ([place] Comment on above: Performed By: #### H CTRP, HGBRP, GLURP, CLRP, NARP, BGRP, KRP, CARP #### [address] [address] UA Squam Epithelial Negative Normal 0-20 [facility] ([place] Comment on above: Performed By: #### H CTRP, HGBRP, GLURP, CLRP, NARP, BGRP, KRP, CARP #### [address] [address] UA WBC Rare Normal 0-5 [facility] ([place] Comment on above: Performed By: #### H CTRP, HGBRP, GLURP, CLRP, NARP, BGRP, KRP, CARP #### [address] [address] .Auto Diffon 10-11-2021 Basophil, Absolute 0.1 10 3/mcL Normal 0.0-0.3 [facility] ([place] Comment on above: Performed By: #### H CTRP, HGBRP, GLURP, CLRP, NARP, BGRP, KRP, CARP #### [address] [address] Basophils/100 WBC (Bld) 0.4 % Normal 0.0-2.5 A [facility] ([place]) Comment on above: Performed By: #### H CTRP, HGBRP, GLURP, CLRP, NARP, BGRP, KRP, CARP #### [address] [address] Eosinophil, Absolute 0.3 10 3/mcL Normal 0.0-0.7 [facility] ([place] Comment on above: Performed By: #### H CTRP, HGBRP, GLURP, CLRP, NARP, BGRP, KRP, CARP #### [address] [address] Eosinophils/100 WBC (Bld) 2.2 % Normal 0.0-6.0 [facility] ([place]) Comment on above: Performed By: #### H CTRP, HGBRP, GLURP, CLRP, NARP, BGRP, KRP, CARP #### [address] [address] Lymphocyte, Absolute 2.8 10 3/mcL Normal 0.9-4.3 [facility] ([place]) Comment on above: Performed By: #### H CTRP, HGBRP, GLURP, CLRP, NARP, BGRP, KRP, CARP #### [address] [address] Lymphocytes/100 WBC (Bld) 22.2 % Normal 20.0-40.0 [facility] ([place]) Comment on above: Performed By: #### H CTRP, HGBRP, GLURP, CLRP, NARP, BGRP, KRP, CARP #### [address] [address] Monocyte, Absolute 1.0 10 3/mcL Normal 0.1-1.4 [facility] ([place]) Comment on above: Performed By: #### H CTRP, HGBRP, GLURP, CLRP, NARP, BGRP, KRP, CARP #### [address] [address] Monocytes/100 WBC (Bld) 7.7 % Normal 2.0-13.0 A [facility] ([place]) Comment on above: Performed By: #### H CTRP, HGBRP, GLURP, CLRP, NARP, BGRP, KRP, CARP #### [address] [address] Neutrophils/100 WBC (Bld) 67.5 % Normal 50.0-75.0 [facility] ([place]) Comment on above: Performed By: #### H CTRP, HGBRP, GLURP, CLRP, NARP, BGRP, KRP, CARP #### [address] [address] .GFRon 10-11-2021 GFR Non- >60 Normal [facility] ([place]) Comment on above: Result Comment: GFR Population [...] GLURP, CLRP, NARP, BGRP, KRP, CARP #### [address] [address] GFR >60 Normal [facility] ([place]) Comment on above: Result Comment: GFR Population [...] GLURP, CLRP, NARP, BGRP, KRP, CARP #### [address] [address] .MDWon 10-11-2021 Monocyte Distribution Width 19.02 Normal 0.00-20.00 [facility] ([place]) Comment on above: Result Comment: For ED adult patients suspected of sepsis, MDW<=20.0 does not rule out sepsis or risk of sepsis Performed By: #### H CTRP, HGBRP, GLURP, CLRP, NARP, BGRP, KRP, CARP #### [address] [address] .NEUABSon 10-11-2021 Neutrophil, Absolute 8.4 10 3/mcL High 2.3-8.1 [facility] ([place]) Comment on above: Performed By: #### H CTRP, HGBRP, GLURP, CLRP, NARP, BGRP, KRP, CARP #### [address] [address] CBCon 10-11-2021 Erythrocyte distribution width (RBC) [Ratio] 13.6 % Normal 11.5-15.5 [facility] ([place]) Comment on above: Performed By: #### H CTRP, HGBRP, GLURP, CLRP, NARP, BGRP, KRP, CARP #### [place] [address] Hematocrit (Bld) [Volume fraction] 41.1 % Normal 34.0-46.0 [facility] ([place]) Comment on above: Performed By: #### H CTRP, HGBRP, GLURP, CLRP, NARP, BGRP, KRP, CARP #### [place] [address] Hgb 13.4 G/dL Normal 12.0-16.0 [facility] ([place]) Comment on above: Performed By: #### H CTRP, HGBRP, GLURP, CLRP, NARP, BGRP, KRP, CARP #### [place] [address] MCH (RBC) [Entitic mass] 29.5 pg Normal 27.0-33.0 [facility] ([place] Comment on above: Performed By: #### H CTRP, HGBRP, GLURP, CLRP, NARP, BGRP, KRP, CARP #### [place] [id number] MCHC 32.7 G/dL Normal 32.0-36.0 [facility] ([place]) Comment on above: Performed By: #### H CTRP, HGBRP, GLURP, CLRP, NARP, BGRP, KRP, CARP #### [place] [id number] MCV (RBC) [Entitic vol] 90.1 fL Normal 80.0-99.0 A [facility] ([place]) Comment on above: Performed By: #### H CTRP, HGBRP, GLURP, CLRP, NARP, BGRP, KRP, CARP #### [address] [address] Platelet 291 10 3/mcL Normal 150-450 [facility] ([place]) Comment on above: Performed By: #### H CTRP, HGBRP, GLURP, CLRP, NARP, BGRP, KRP, CARP #### [address] [address] Platelet mean volume (Bld) [Entitic vol] 8.4 fL Normal 6.6-10.5 [facility] ([place]) Comment on above: Performed By: #### H CTRP, HGBRP, GLURP, CLRP, NARP, BGRP, KRP, CARP #### [address] [address] RBC 4.56 10 6/mcL Normal 4.10-5.30 [facility] ([place] Comment on above: Performed By: #### H CTRP, HGBRP, GLURP, CLRP, NARP, BGRP, KRP, CARP #### [address] [address] WBC 12.5 10 3/mcL High 4.5-10.8 [facility] ([place] Comment on above: Performed By: #### H CTRP, HGBRP, GLURP, CLRP, NARP, BGRP, KRP, CARP #### [address] [address] CMPon 10-11-2021 Albumin Level 3.6 G/dL Normal 3.2-4.8 [facility] ([place]) Comment on above: Performed By: #### H CTRP, HGBRP, GLURP, CLRP, NARP, BGRP, KRP, CARP #### [address] [address] Albumin/Globulin [Mass ratio] 1.0 {ratio} Normal 0.9-1.6 [facility] ([place]) Comment on above: Performed By: #### H CTRP, HGBRP, GLURP, CLRP, NARP, BGRP, KRP, CARP #### [address] [address] ALP [Catalytic activity/Vol] 111 U/L Normal 38-126 [facility] ([place]) Comment on above: Performed By: #### H CTRP, HGBRP, GLURP, CLRP, NARP, BGRP, KRP, CARP #### [address] [address] ALT [Catalytic activity/Vol] 22 U/L Normal 10-49 [facility] ([place]) Comment on above: Performed By: #### H CTRP, HGBRP, GLURP, CLRP, NARP, BGRP, KRP, CARP #### [address] [address] AST [Catalytic activity/Vol] 28 U/L Normal 8-34 [facility] ([place]) Comment on above: Performed By: #### H CTRP, HGBRP, GLURP, CLRP, NARP, BGRP, KRP, CARP #### [address] [address] Bili Total 0.40 mg/dL Normal 0.20-1.20 [facility] ([place]) Comment on above: Result Comment: Use of this assay is not recommended for patients undergoing treatment with eltrombopag due to the potential for falsely elevated results. Performed By: #### H CTRP, HGBRP, GLURP, CLRP, NARP, BGRP, KRP, CARP #### [place] [id number] BUN/Creatinine Ratio 22.1 ratio High 10.0-22.0 [facility] ([place]) Comment on above: Performed By: #### H CTRP, HGBRP, GLURP, CLRP, NARP, BGRP, KRP, CARP #### [place] [phone] Calcium [Mass/Vol] 9.5 mg/dL Normal 8.7-10.4 [facility] ([place]) Comment on above: Performed By: #### H CTRP, HGBRP, GLURP, CLRP, NARP, BGRP, KRP, CARP #### [address] [address] Chloride [Moles/Vol] 104 mmol/L Normal 98-110 [facility] ([place]) Comment on above: Performed By: #### H CTRP, HGBRP, GLURP, CLRP, NARP, BGRP, KRP, CARP #### [address] [address] CO2 [Moles/Vol] 28 mmol/L Normal 22-32 [facility] ([place] Comment on above: Performed By: #### H CTRP, HGBRP, GLURP, CLRP, NARP, BGRP, KRP, CARP #### [place] [address] Creatinine [Mass/Vol] 0.68 mg/dL Normal 0.50-1.20 [facility] ([place]) Comment on above: Performed By: #### H CTRP, HGBRP, GLURP, CLRP, NARP, BGRP, KRP, CARP #### [address] [address] Electrolyte Balance 4.0 mEq/L Normal 4.0-15.0 [facility] ([place]) Comment on above: Performed By: #### H CTRP, HGBRP, GLURP, CLRP, NARP, BGRP, KRP, CARP #### [place] [phone] Globulin 3.6 G/dL Normal 1.5-3.8 [facility] ([place] Comment on above: Performed By: #### H CTRP, HGBRP, GLURP, CLRP, NARP, BGRP, KRP, CARP #### [place] [phone] Glucose [Mass/Vol] 178 mg/dL High 82-115 [facility] ([place]) Comment on above: Performed By: #### H CTRP, HGBRP, GLURP, CLRP, NARP, BGRP, KRP, CARP #### Luis Miguel[address] [address] Potassium [Moles/Vol] 4.0 mmol/L Normal 3.5-5.0 [facility] ([place] Comment on above: Performed By: #### H CTRP, HGBRP, GLURP, CLRP, NARP, BGRP, KRP, CARP #### [address] [address] Sodium [Moles/Vol] 136 mmol/L Normal 136-145 [facility] ([place]) Comment on above: Performed By: #### H CTRP, HGBRP, GLURP, CLRP, NARP, BGRP, KRP, CARP #### [address] [address] Total Protein 7.2 G/dL Normal 5.7-8.2 [facility] ([place]) Comment on above: Result Comment: No te - New Reference Range in effect 19 Performed By: #### H CTRP, HGBRP, GLURP, CLRP, NARP, BGRP, KRP, CARP #### [address] [address] Urea nitrogen [Mass/Vol] 15.0 mg/dL Normal 8.0-22.0 [facility] ([place] Comment on above: Performed By: #### H CTRP, HGBRP, GLURP, CLRP, NARP, BGRP, KRP, CARP #### [address] [address] PBNPon 10-11-2021 Natriuretic peptide B (Bld) [Mass/Vol] 123 pg/mL Normal 0-900 [facility] ([place]) Comment on above: Result Comment: NT-p roBNP results of less than 300 pg/mL effectively rules out acute congestive heart failure with 99% negative predictive value. Performed By: #### H CTRP, HGBRP, GLURP, CLRP, NARP, BGRP, KRP, CARP #### [address] [address] TROPHSon 10-11-2021 Troponin I High Sensitivity 7.31 ng/L Normal 0.00-34.00 [facility] ([place]) Comment on above: Result Comment: If t he High Sensitive Troponin result is below the 99th percentile value (<45 ng/L) at the first blood draw, at least two additional blood samples should be drawn before results are interpreted as negative for AMI. Performed By: #### H CTRP, HGBRP, GLURP, CLRP, NARP, BGRP, KRP, CARP #### [place] [address] XR CHEST 1 VIEWon 10-11-2021 XR CHEST [...] 10/11/2021 5:14:20 AM Ordering Provider: ANTWAN Mercado [facility] ([place]) Absolute lymphocyte counton 09-08-2021 Lymphocytes Auto (Unsp spec) [#/Vol] 2.25 10*3/uL 0.83-4.51 [facility] Work Phone: Basophil percentageon 2021 Basophils/100 WBC (Bld) 0.6 % 0-1 [facility] Work Phone: Bilirubin [Mass/Vol] 0.50 mg/dL 0.20-1.00 [facility] Work Phone: Comment on above: For patients on eltr ombopag therapy, use of Dimension [place] TBIL is not recommended. Chloride [Moles/Vol] 102 mmol/L 98-107 [facility] Work Phone: Eosinophils/100 WBC (Bld) 2.6 % 0-5 [facility] Work Phone: Glucose [Mass/Vol] 287 mg/dL 74-106 [facility] Work Phone: Comment on above: Glucose result great er than or equal to 200 mg/dLsuggests DIABETES MELLITUS per A.D.A. criteria. Neutrophils (Bld) [#/Vol] 10.8 10*3/uL 2.0-7.7 [facility] Work Phone: Neutrophils/100 WBC (Bld) 74.7 % 47-70 [facility] Work Phone: Potassium [Moles/Vol] 4.2 mmol/L 3.5-5.[address] [facility] Work Phone: Protein [Mass/Vol] 7.2 g/dL 6.4-8.2 [facility] Work Phone: Sodium [Moles/Vol] 137 mmol/L 136-145 [facility] Work Phone: WBC (Bld) [#/Vol] 14.4 10*3/uL 4.4-11.0 [facility] Work Phone: Blood erythrocytes count (nu mber/volume)on 09-08-2021 RBC (Bld) [#/Vol] 4.53 10*6/uL 4.2-5.4 [facility] Work Phone: Blood hemoglobin measurement (mass/volume)on 09-08-2021 Hemoglobin (Bld) [Mass/Vol] 13.5 g/dL 12.0-15.0 [facility] Work Phone: Blood lymphocytes/100 leukoc yteson 09-08-2021 Lymphocytes/100 WBC (Bld) 15.6 % 19-41 [facility] Work Phone: Blood monocytes/100 leukocyt eson 09-08-2021 Monocytes/100 WBC (Bld) 5.8 % 0-10 [facility] Work Phone: [phone] Blood platelet mean volumeon 09-08-2021 Platelet mean volume (Bld) [Entitic vol] 10.7 fL 6.2-12.0 [facility] Work Phone: [phone] Determination of erythrocyte mean corpuscular volume (MCV)on 09-08-2021 MCV (RBC) [Entitic vol] 92.5 fL 81-99 [facility] Work Phone: [phone] Hematocrit Auto (Bld) [Volum e fraction]on 09-08-2021 Hematocrit (Bld) [Volume fraction] 41.9 % 37-47 [facility] Work Phone: [phone] Laboratory - Chemistry and C hemistry - challengeon 09-08-2021 ALP [Catalytic activity/Vol] 96 U/L 45-117 [facility] Work Phone: [phone] ALT [Catalytic activity/Vol] 28 U/L 13-56 [facility] Work Phone: [phone] CO2 [Moles/Vol] 28.0 mmol/L 21.0-32.0 [facility] Work Phone: [phone] Globulin (S) [Mass/Vol] 3.9 g/dL 2.2-4.2 [facility] Work Phone: [phone] Urea nitrogen/Creatinine [Mass ratio] 18.7 mg/mg 10-20 [facility] Work Phone: [phone] Laboratory - Hematology and Cell countson 09-08-2021 Erythrocyte distribution width (RBC) [Entitic vol] 43.7 fL 35.1-43.9 [facility] Work Phone: [phone] Erythrocyte distribution width (RBC) [Ratio] 12.9 % 11.6-14.6 [facility] Work Phone: [phone] Immature granulocytes/100 WBC (Bld) 0.700 % 0.0-0.9 [facility] Work Phone: [phone] Comment on above: IG% - Immature Granu locytes (promyelocytes, myelocytes and metamyelocytes) > 1% indicates that a LEFT SHIFT is Present. MCH (RBC) [Entitic mass] 29.8 pg 27.0-32.0 [facility] Work Phone: [phone] Nucleated RBC/100 WBC (Bld) [Ratio] 0 % 0-5 [facility] Work Phone: [phone] MCHC Auto (RBC) [Mass/Vol]on 09-08-2021 MCHC (RBC) [Mass/Vol] 32.2 g/dL 32-[address] [facility] Work Phone: [phone] Panel Informationon 09-08 Estimated Creatinine Clearance Calc 43.74 ml/min [facility] Work Phone: [phone] Estimated GFR (MDRD) Amer 74 mL/min >60 [facility] Work Phone: [phone] Comment on above: GFR Calc Estimated GFR (MDRD) Non-Af Amer 61 mL/min >60 [facility] Work Phone: [phone] Comment on above: Non- GFR Calc Platelets bldon 09-08-2021 Platelets (Bld) [#/Vol] 267 10*3/uL 150-450 [facility] Work Phone: [phone] Serum or plasma albumin betsy urement (mass/volume)on 09-08-2021 Albumin [Mass/Vol] 3.3 g/dL 3.2-5.0 [facility] Work Phone: [phone] Serum or plasma albumin/glob ulin mass ratioon 09-08-2021 Albumin/Globulin [Mass ratio] 0.8 {ratio} 0.9-2.4 [facility] Work Phone: [phone] Serum or plasma calcium betsy urement (mass/volume)on 09-08-2021 Calcium [Mass/Vol] 9.1 mg/dL 8.5-10.1 [facility] Work Phone: [phone] Serum or plasma creatinine m easurement (mass/volume)on 09-08-2021 Creatinine [Mass/Vol] 0.96 mg/dL 0.55-1.[address] [facility] Work Phone: Comment on above: The validity of the calculated GFR & GFRAA in patients over 70 years has not been determined. Clinical correlation is essential. Serum or plasma urea nitroge n measurement (mass/volume)on 09-08-2021 Urea nitrogen [Mass/Vol] 18 mg/dL 7-18 [facility] Work Phone: Thin prep Papanicolaou smear with manual screeningon 09-08-2021 Thin prep Papanicolaou smear with manual screening 20 U/L 15-37 [facility] Work Phone: [phone] Thin prep Papanicolaou smear with manual screening 7 5-15 [facility] Work Phone: [phone] Glucose Glucometer (BldC) [M ass/Vol]on 09-05-2021 Glucose [Mass/Vol] 201 mg/dL 74-106 [facility] Work Phone: Comment on above: MANAGEMENT OF PATIEN T CARE PER NURSING PROTOCOL Basophil percentageon 2021 Chloride [Moles/Vol] 103 mmol/L 98-107 [facility] Work Phone: [phone] Glucose [Mass/Vol] 160 mg/dL 74-106 [facility] Work Phone: Comment on above: Fasting Glucose resu lt greater than or equal to 126 mg/dL suggests DIABETES MELLITUS per A.D.A. criteria. Potassium [Moles/Vol] 4.0 mmol/L 3.5-5.[address] [facility] Work Phone: [phone] Sodium [Moles/Vol] 136 mmol/L 136-145 [facility] Work Phone: [phone] WBC (Bld) [#/Vol] 12.7 10*3/uL 4.4-11.0 [facility] Work Phone: [phone] Blood erythrocytes count (nu mber/volume)on 08-28-2021 RBC (Bld) [#/Vol] 4.62 10*6/uL 4.2-5.4 [facility] Work Phone: [phone] Blood hemoglobin measurement (mass/volume)on 08-28-2021 Hemoglobin (Bld) [Mass/Vol] 13.7 g/dL 12.0-15.0 [facility] Work Phone: Blood platelet mean volumeon 08-28-2021 Platelet mean volume (Bld) [Entitic vol] 10.9 fL 6.2-12.0 [facility] Work Phone: Determination of erythrocyte mean corpuscular volume (MCV)on 08-28-2021 MCV (RBC) [Entitic vol] 92.0 fL 81-99 [facility] Work Phone: Hematocrit Auto (Bld) [Volum e fraction]on 08-28-2021 Hematocrit (Bld) [Volume fraction] 42.5 % 37-47 [facility] Work Phone: INR in Blood by Coagulation assayon 08-28-2021 INR Coag (Bld) [Relative time] 1.0 {INR} [facility] Work Phone: Laboratory - Chemistry and C hemistry - challengeon 08-28-2021 CO2 [Moles/Vol] 28.0 mmol/L 21.0-32.0 [facility] Work Phone: Urea nitrogen/Creatinine [Mass ratio] 23.6 mg/mg 10-20 [facility] Work Phone: Laboratory - Coagulationon 0 08-28-2021 aPTT Coag (Bld) [Time] 25.4 s 24.1-36.2 [facility] Work Phone: PT Coag (PPP) [Time] 13.0 s 11.7-14.9 [facility] Work Phone: Laboratory - Hematology and Cell countson 08-28-2021 Erythrocyte distribution width (RBC) [Entitic vol] 43.4 fL 35.1-43.9 [facility] Work Phone: Erythrocyte distribution width (RBC) [Ratio] 12.9 % 11.6-14.6 [facility] Work Phone: MCH (RBC) [Entitic mass] 29.7 pg 27.0-32.0 [facility] Work Phone: MCHC Auto (RBC) [Mass/Vol]on 08-28-2021 MCHC (RBC) [Mass/Vol] 32.2 g/dL 32-[address] [facility] Work Phone: No Panel Informationon 08-28 Estimated GFR (MDRD) Amer 91 mL/min >60 [facility] Work Phone: Comment on above: GFR Calc Estimated GFR (MDRD) Non-Af Amer 75 mL/min >60 [facility] Work Phone: Comment on above: Non- GFR Calc Platelets bldon 08-28-2021 Platelets (Bld) [#/Vol] 299 10*3/uL 150-450 [facility] Work Phone: Serum or plasma calcium betsy urement (mass/volume)on 08-28-2021 Calcium [Mass/Vol] 9.1 mg/dL 8.5-10.1 [facility] Work Phone: Serum or plasma creatinine m easurement (mass/volume)on 08-28-2021 Creatinine [Mass/Vol] 0.80 mg/dL 0.55-1.[address] [facility] Work Phone: Comment on above: The validity of the calculated GFR & GFRAA in patients over 70 years has not been determined. Clinical correlation is essential. Serum or plasma urea nitroge n measurement (mass/volume)on 08-28-2021 Urea nitrogen [Mass/Vol] 19 mg/dL 7-18 [facility] Work Phone: Thin prep Papanicolaou smear with manual screeningon 08-28-2021 Thin prep Papanicolaou smear with manual screening 5 5-15 [facility] Work Phone: Absolute lymphocyte counton 06-07-2021 Lymphocytes Auto (Unsp spec) [#/Vol] 2.40 10*3/uL 0.83-4.51 [facility] Work Phone: Basophil percentageon 03-23- 2022 Basophil percentage 0 SEEN /hpf 0-5 [facility] Work Phone: Basophils/100 WBC (Bld) 0.8 % 0-1 [facility] Work Phone: Bilirubin [Mass/Vol] 0.40 mg/dL 0.20-1.00 [facility] Work Phone: Comment on above: For patients on eltr ombopag therapy, use of Dimension [place] TBIL is not recommended. Chloride [Moles/Vol] 101 mmol/L 98-107 [facility] Work Phone: Cholesterol [Mass/Vol] 160 mg/dL <200 [facility] Work Phone: Comment on above: <200 mg/dL Desirable 200-240 mg/dL Borderline >240 mg/dL High Risk Eosinophils/100 WBC (Bld) 2.4 % 0-5 [facility] Work Phone: Glucose [Mass/Vol] 232 mg/dL 74-106 [facility] Work Phone: Comment on above: Glucose result great er than or equal to 200 mg/dLsuggests DIABETES MELLITUS per A.D.A. criteria. Neutrophils (Bld) [#/Vol] 8.1 10*3/uL 2.0-7.7 [facility] Work Phone: Neutrophils/100 WBC (Bld) 68.3 % 47-70 [facility] Work Phone: Potassium [Moles/Vol] 4.3 mmol/L 3.5-5.[address] [facility] Work Phone: Protein [Mass/Vol] 7.8 g/dL 6.4-8.2 [facility] Work Phone: Sodium [Moles/Vol] 134 mmol/L 136-145 [facility] Work Phone: Triglyceride [Mass/Vol] 186 mg/dL <199 [facility] Work Phone: [phone] Comment on above: The drugs N-Acetylcy steine and Metamizole may falsely depress this assay.Serum Triglycerides Reference Interval Normal <150 mg/dL Borderline high 150 - 199 mg/dL High 200 - 499 mg/dL Very High > or = 500 mg/dL WBC (Bld) [#/Vol] 11.9 10*3/uL 4.4-11.0 [facility] Work Phone: Bilirubin Test strip Ql (U)o n 06-07-2021 Bilirubin Ql (U) Negative Negative [facility] Work Phone: Blood erythrocytes count (nu mber/volume)on 06-07-2021 RBC (Bld) [#/Vol] 4.69 10*6/uL 4.2-5.4 [facility] Work Phone: [phone] Blood hemoglobin measurement (mass/volume)on 06-07-2021 Hemoglobin (Bld) [Mass/Vol] 13.9 g/dL 12.0-15.0 [facility] Work Phone: [phone] Blood lymphocytes/100 leukoc yteson 06-07-2021 Lymphocytes/100 WBC (Bld) 20.2 % 19-41 [facility] Work Phone: [phone] Blood monocytes/100 leukocyt eson 06-07-2021 Monocytes/100 WBC (Bld) 7.0 % 0-10 [facility] Work Phone: [phone] Blood platelet mean volumeon 06-07-2021 Platelet mean volume (Bld) [Entitic vol] 11.0 fL 6.2-12.0 [facility] Work Phone: [phone] Determination of erythrocyte mean corpuscular volume (MCV)on 06-07-2021 MCV (RBC) [Entitic vol] 93.4 fL 81-99 [facility] Work Phone: [phone] Hematocrit Auto (Bld) [Volum e fraction]on 06-07-2021 Hematocrit (Bld) [Volume fraction] 43.8 % 37-47 [facility] Work Phone: [phone] Ketones Test strip Ql (U)on 06-07-2021 Ketones Ql (U) Negative Negative [facility] Work Phone: Laboratory - Chemistry and C hemistry - challengeon 06-07-2021 ALP [Catalytic activity/Vol] 122 U/L 45-117 [facility] Work Phone: [phone] ALT [Catalytic activity/Vol] 33 U/L 13-56 [facility] Work Phone: [phone] CO2 [Moles/Vol] 27.0 mmol/L 21.0-32.0 [facility] Work Phone: [phone] Free T4 [Mass/Vol] 0.79 ng/dL 0.76-1.46 [facility] Work Phone: [phone] Globulin (S) [Mass/Vol] 4.2 g/dL 2.2-4.2 [facility] Work Phone: [phone] Magnesium [Mass/Vol] 2.1 mg/dL 1.6-2.6 [facility] Work Phone: [phone] Urea nitrogen/Creatinine [Mass ratio] 21.3 mg/mg 10-20 [facility] Work Phone: [phone] Laboratory - Hematology and Cell countson 06-07-2021 Erythrocyte distribution width (RBC) [Entitic vol] 45.1 fL 35.1-43.9 [facility] Work Phone: [phone] Erythrocyte distribution width (RBC) [Ratio] 13.2 % 11.6-14.6 [facility] Work Phone: [phone] Immature granulocytes/100 WBC (Bld) 1.300 % 0.0-0.9 [facility] Work Phone: [phone] Comment on above: IG% - Immature Granu locytes (promyelocytes, myelocytes and metamyelocytes) > 1% indicates that a LEFT SHIFT is Present. MCH (RBC) [Entitic mass] 29.6 pg 27.0-32.0 [facility] Work Phone: [phone] Nucleated RBC/100 WBC (Bld) [Ratio] 0 % 0-5 [facility] Work Phone: [phone] HbA1c (Bld) [Mass fraction] 8.4 % 4.2-6.3 [facility] Work Phone: MCHC Auto (RBC) [Mass/Vol]on 06-07-2021 MCHC (RBC) [Mass/Vol] 31.7 g/dL 32-[address] [facility] Work Phone: Mucus LM Ql (Urine sed)on Mucus Ql (Urine sed) 0 SEEN /hpf [facility] Work Phone: Nitrite Test strip Ql (U)on 06-07-2021 Nitrite Ql (U) Negative Negative [facility] Work Phone: No Panel Informationon 06-07 Estimated GFR (MDRD) Amer 76 mL/min >60 [facility] Work Phone: Comment on above: GFR Calc Estimated GFR (MDRD) Non-Af Amer 63 mL/min >60 [facility] Work Phone: Comment on above: Non- GFR Calc Free Triiodothyronine (T3) pg/dL 2.8 pg/mL 2.18-3.98 [facility] Work Phone: Thyroid Stimulating Hormone (TSH) 10.30 uIU/mL 0.358-3.74 [facility] Work Phone: Vitamin D 25-Hydroxy 18.1 ng/mL [facility] Work Phone: Comment on above: Vitamin D 25(OH) Sta tus Range Deficiency <20 ng/mL (50nmol/L) Insufficiency 20 - 30 ng/mL (50 - 75 nmol/L) Sufficiency 30 - 100 ng/mL (75 - 250 nmol/L) Toxicity >100 ng/mL (>250 nmol/L) Platelets bldon 06-07-2021 Platelets (Bld) [#/Vol] 332 10*3/uL 150-450 [facility] Work Phone: Protein Test strip Ql (U)on 06-07-2021 Protein Ql (U) Negative Negative [facility] Work Phone: [phone] Serum or plasma albumin betsy urement (mass/volume)on 06-07-2021 Albumin [Mass/Vol] 3.6 g/dL 3.2-5.0 [facility] Work Phone: Serum or plasma albumin/glob ulin mass ratioon 06-07-2021 Albumin/Globulin [Mass ratio] 0.9 {ratio} 0.9-2.4 [facility] Work Phone: Serum or plasma calcium betsy urement (mass/volume)on 06-07-2021 Calcium [Mass/Vol] 9.8 mg/dL 8.5-10.1 [facility] Work Phone: Serum or plasma cholesterol in HDL measurement (mass/volume)on 06-07-2021 Cholesterol in HDL [Mass/Vol] 51 mg/dL >40 [facility] Work Phone: Comment on above: The drugs N-Acetylcy steine and Metamizole may falsely depress this assay. Reference Range HDL <40 mg/dL Low HDL Cholesterol HDL >or= 60 mg/dL High HDL Cholesterol Serum or plasma cholesterol in VLDL measurement (mass/volume)on 06-07-2021 Cholesterol in VLDL [Mass/Vol] 37 mg/dL 5-40 [facility] Work Phone: [phone] Serum or plasma creatinine m easurement (mass/volume)on 06-07-2021 Creatinine [Mass/Vol] 0.94 mg/dL 0.55-1.[address] [facility] Work Phone: Comment on above: The validity of the calculated GFR & GFRAA in patients over 70 years has not been determined. Clinical correlation is essential. Serum or plasma low density lipoprotein (LDL) cholesterol measurement (mass/volume)on 06-07-2021 Cholesterol in LDL [Mass/Vol] 72 mg/dL 0-130 [facility] Work Phone: [phone] Serum or plasma urea nitroge n measurement (mass/volume)on 06-07-2021 Urea nitrogen [Mass/Vol] 20 mg/dL 7-18 [facility] Work Phone: [phone] Squamous epithelial cells de tection in urine sediment by light microscopyon 06-07-2021 Epithelial cells.squamous LM Ql (Urine sed) 0 SEEN /hpf 5-10 [facility] Work Phone: Thin prep Papanicolaou smear with manual screeningon 06-07-2021 Thin prep Papanicolaou smear with manual screening 23 U/L 15-37 [facility] Work Phone: [phone] Thin prep Papanicolaou smear with manual screening 6 5-15 [facility] Work Phone: Urine blood detectionon - RBC Ql (U) Negative Negative [facility] Work Phone: [phone] RBC Ql (U) 0 SEEN /hpf 0-5 [facility] Work Phone: [phone] Urine clarityon 06-07-2021 Clarity (U) Sl. Cloudy Clear [facility] Work Phone: Urine color determinationon 06-07-2021 Color (U) Yellow Yellow [facility] Work Phone: Urine creatinine measurement (mass/volume)on 06-07-2021 Creatinine (U) [Mass/Vol] 23.70 mg/dL NO RANGE EST. [facility] Work Phone: Urine glucose detectionon Glucose Ql (U) 250 mg/dl Normal [facility] Work Phone: Urine leukocyte esterase det ection by dipstickon 06-07-2021 Leukocyte esterase Test strip Ql (U) Negative Negative [facility] Work Phone: Urine pHon 06-07-2021 pH (U) 6.5 [pH] 5.0 - 8.0 [facility] Work Phone: Urine protein measurement (m ass/volume)on 06-07-2021 Protein (U) [Mass/Vol] 6.9 mg/dL 0.0-11.8 [facility] Work Phone: Urine protein/creatinine mas s ratioon 06-07-2021 Protein/Creatinine (U) [Mass ratio] 291 mg/g CRE 0-200 [facility] Work Phone: Urine sediment bacteria coun t by microscopy (number/high power field)on 06-07-2021 Bacteria LM.HPF (Urine sed) [#/Area] 0 /[HPF] None Seen [facility] Work Phone: Urine specific gravity measu rementon 06-07-2021 Specific gravity (U) [Rel density] 1.010 1.002-1.030 [facility] Work Phone: Urobilinogen Auto test strip Ql (U)on 06-07-2021 Urobilinogen Ql (U) Normal mg/dl Normal [facility] Work Phone: Absolute lymphocyte counton 04-25-2021 Lymphocytes Auto (Unsp spec) [#/Vol] 2.40 10*3/uL 0.83-4.51 [facility] Work Phone: Basophil percentageon 2021 Basophils/100 WBC (Bld) 0.7 % 0-1 [facility] Work Phone: Chloride [Moles/Vol] 101 mmol/L 98-107 [facility] Work Phone: Eosinophils/100 WBC (Bld) 1.8 % 0-5 [facility] Work Phone: Glucose [Mass/Vol] 284 mg/dL 74-106 [facility] Work Phone: Comment on above: Glucose result great er than or equal to 200 mg/dLsuggests DIABETES MELLITUS per A.D.A. criteria. Neutrophils (Bld) [#/Vol] 9.9 10*3/uL 2.0-7.7 [facility] Work Phone: Neutrophils/100 WBC (Bld) 72.3 % 47-70 [facility] Work Phone: Potassium [Moles/Vol] 4.4 mmol/L 3.5-5.[address] [facility] Work Phone: Sodium [Moles/Vol] 136 mmol/L 136-145 [facility] Work Phone: WBC (Bld) [#/Vol] 13.6 10*3/uL 4.4-11.0 [facility] Work Phone: Blood erythrocytes count (nu mber/volume)on 04-25-2021 RBC (Bld) [#/Vol] 4.88 10*6/uL 4.2-5.4 [facility] Work Phone: Blood hemoglobin measurement (mass/volume)on 04-25-2021 Hemoglobin (Bld) [Mass/Vol] 14.9 g/dL 12.0-15.0 [facility] Work Phone: Blood lymphocytes/100 leukoc yteson 04-25-2021 Lymphocytes/100 WBC (Bld) 17.6 % 19-41 [facility] Work Phone: Blood monocytes/100 leukocyt eson 04-25-2021 Monocytes/100 WBC (Bld) 6.2 % 0-10 [facility] Work Phone: Blood platelet mean volumeon 04-25-2021 Platelet mean volume (Bld) [Entitic vol] 10.8 fL 6.2-12.0 [facility] Work Phone: Determination of erythrocyte mean corpuscular volume (MCV)on 04-25-2021 MCV (RBC) [Entitic vol] 93.0 fL 81-99 [facility] Work Phone: [phone] Hematocrit Auto (Bld) [Volum e fraction]on 04-25-2021 Hematocrit (Bld) [Volume fraction] 45.4 % 37-47 [facility] Work Phone: Laboratory - Chemistry and C hemistry - challengeon 04-25-2021 CO2 [Moles/Vol] 29.0 mmol/L 21.0-32.0 [facility] Work Phone: [phone] Natriuretic peptide B (Bld) [Mass/Vol] 53.5 pg/mL 0-100 [facility] Work Phone: [phone] Urea nitrogen/Creatinine [Mass ratio] 18.0 mg/mg 10-20 [facility] Work Phone: Laboratory - Hematology and Cell countson 04-25-2021 Erythrocyte distribution width (RBC) [Entitic vol] 44.8 fL 35.1-43.9 [facility] Work Phone: [phone] Erythrocyte distribution width (RBC) [Ratio] 13.1 % 11.6-14.6 [facility] Work Phone: [phone] Immature granulocytes/100 WBC (Bld) 1.400 % 0.0-0.9 [facility] Work Phone: [phone] Comment on above: IG% - Immature Granu locytes (promyelocytes, myelocytes and metamyelocytes) > 1% indicates that a LEFT SHIFT is Present. MCH (RBC) [Entitic mass] 30.5 pg 27.0-32.0 [facility] Work Phone: [phone] Nucleated RBC/100 WBC (Bld) [Ratio] 0 % 0-5 [facility] Work Phone: [phone] MCHC Auto (RBC) [Mass/Vol]on 04-25-2021 MCHC (RBC) [Mass/Vol] 32.8 g/dL 32-[address] [facility] Work Phone: [phone] Panel Informationon 04-25 Estimated Creatinine Clearance Calc 44.67 ml/min [facility] Work Phone: [phone] Estimated GFR (MDRD) Amer 76 mL/min >60 [facility] Work Phone: [phone] Comment on above: GFR Calc Estimated GFR (MDRD) Non-Af Amer 63 mL/min >60 [facility] Work Phone: [phone] Comment on above: Non- GFR Calc Troponin I High Sensitivity 12 pg/mL 3.0-54.0 [facility] Work Phone: [phone] Comment on above: Please Note: [place] t Units and Gender Specific Reference Ranges. For more information see Policy Stat Procedure [place] High Sensitivity Troponin (TNIH) and attachments. Platelets bldon 04-25-2021 Platelets (Bld) [#/Vol] 336 10*3/uL 150-450 [facility] Work Phone: Serum or plasma calcium betsy urement (mass/volume)on 04-25-2021 Calcium [Mass/Vol] 9.0 mg/dL 8.5-10.1 [facility] Work Phone: Serum or plasma creatinine m easurement (mass/volume)on 04-25-2021 Creatinine [Mass/Vol] 0.94 mg/dL 0.55-1.[address] [facility] Work Phone: Comment on above: The validity of the calculated GFR & GFRAA in patients over 70 years has not been determined. Clinical correlation is essential. Serum or plasma urea nitroge n measurement (mass/volume)on 04-25-2021 Urea nitrogen [Mass/Vol] 17 mg/dL 7-18 [facility] Work Phone: Thin prep Papanicolaou smear with manual screeningon 04-25-2021 Thin prep Papanicolaou smear with manual screening 6 5-15 [facility] Work Phone: [facility] on 09-15-2016 [facility] Normal [facility] Patient Summary Documentson 09-15-2016 Patient Summary Documents Normal [facility] Vital Signs Date Time Vital Sign Value Performing Clinician Facility 07-02-2024 13:00-0400 Body height 157.[address] Harish Noel MD Work Phone: [facility] 07-02-2024 13:00-0400 Body mass index (BMI) [Ratio] 41.7 kg/m2 Dr. Harish Noel MD Work Phone: [facility] 07-02-2024 13:00-0400 Body temperature 98.9 [degF] Dr. Harish Noel MD Work Phone: [facility] 07-02-2024 13:00-0400 Body weight 103.[address] Harish Noel MD Work Phone: [facility] 07-02-2024 13:00-0400 Diastolic blood pressure 70 mm[Hg] Dr. Harish Noel MD Work Phone: [facility] 07-02-2024 13:00-0400 Heart rate 66 /min Dr. Harish Noel MD Work Phone: [facility] 07-02-2024 13:00-0400 Respiratory rate 16 /min Dr. Harish Noel MD Work Phone: [facility] 07-02-2024 13:00-0400 SaO2% (BldA) [Mass fraction] 90 % Dr. Harish Noel MD Work Phone: [facility] 07-02-2024 13:00-0400 Systolic blood pressure 150 mm[Hg] Dr. Harish Noel MD Work Phone: [facility] 04-30-2024 14:50-0500 Body temperature 97.8 [degF] Dr. Harish Noel MD Work Phone: [facility] 04-30-2024 14:50-0500 Diastolic blood pressure 72 mm[Hg] Dr. Harish Noel MD Work Phone: [facility] 04-30-2024 14:50-0500 Heart rate 83 /min Dr. Harish Noel MD Work Phone: [facility] 04-30-2024 14:50-0500 Respiratory rate 16 /min Dr. Harish Noel MD Work Phone: [facility] 04-30-2024 14:50-0500 SaO2% (BldA) [Mass fraction] 96 % Dr. Harish Noel MD Work Phone: [facility] 04-30-2024 14:50-0500 Systolic blood pressure 138 mm[Hg] Dr. Harish Noel MD Work Phone: [facility] 04-30-2024 13:49-0500 Body weight 100.[address] Harish Noel MD Work Phone: [facility] 04-30-2024 01:16-0500 Body mass index (BMI) [Ratio] 40.6 kg/m2 Dr. Harish Noel MD Work Phone: [facility] 07-28-2022 12:49-0400 Body height 157.[address] Harish Noel Work Phone: [facility] 07-28-2022 12:49-0400 Body mass index (BMI) [Ratio] 40.6 kg/m2 Dr. Harish Noel Work Phone: [facility] 07-28-2022 12:49-0400 Body temperature 97.2 [degF] Dr. Harish Noel Work Phone: [facility] 07-28-2022 12:49-0400 Body weight 100.[address] Harish Noel Work Phone: [facility] 07-28-2022 12:49-0400 Diastolic blood pressure 69 mm[Hg] Dr. Harish Noel Work Phone: [facility] 07-28-2022 12:49-0400 Heart rate 78 /min Dr. Harish Noel Work Phone: [facility] 07-28-2022 12:49-0400 Respiratory rate 22 /min Dr. Harish Noel Work Phone: [facility] 07-28-2022 12:49-0400 SaO2% (BldA) [Mass fraction] 97 % Dr. Harish Noel Work Phone: [facility] 07-28-2022 12:49-0400 Systolic blood pressure 148 mm[Hg] Dr. Harish Noel Work Phone: [facility] 05-16-2022 13:10-0500 Body temperature 97.3 [degF] Dr. Harish Noel Work Phone: [facility] 05-16-2022 13:10-0500 Body weight 101.[address] Harish Noel Work Phone: [facility] 05-16-2022 13:10-0500 Diastolic blood pressure 72 mm[Hg] Dr. Harish Noel Work Phone: [facility] 05-16-2022 13:10-0500 Heart rate 88 /min Dr. Harish Noel Work Phone: [facility] 05-16-2022 13:10-0500 Respiratory rate 16 /min Dr. Harish Noel Work Phone: [facility] 05-16-2022 13:10-0500 SaO2% (BldA) [Mass fraction] 92 % Dr. Harish Noel Work Phone: [facility] 05-16-2022 13:10-0500 Systolic blood pressure 115 mm[Hg] Dr. Harish Noel Work Phone: [facility] 04-11-2022 14:31-0500 Body height 157.[address] Harish Noel Work Phone: [facility] 04-11-2022 14:31-0500 Body mass index (BMI) [Ratio] 40.6 kg/m2 Dr. Harish Noel Work Phone: [facility] 04-11-2022 14:31-0500 Body weight 100.[address] Harish Noel Work Phone: [facility] 04-11-2022 14:31-0500 Diastolic blood pressure 93 mm[Hg] Dr. Harish Noel Work Phone: [facility] 04-11-2022 14:31-0500 Heart rate 80 /min Dr. Harish Noel Work Phone: [facility] 04-11-2022 14:31-0500 Respiratory rate 18 /min Dr. Harish Noel Work Phone: [facility] 04-11-2022 14:31-0500 SaO2% (BldA) [Mass fraction] 93 % Dr. Harish Noel Work Phone: [facility] 04-11-2022 14:31-0500 Systolic blood pressure 151 mm[Hg] Dr. Harish Noel Work Phone: [facility] 01-21-2022 19:56-0500 Diastolic blood pressure 60 mm[Hg] Dr. Harish Noel Work Phone: [facility] Work Phone: 01-21-2022 19:56-0500 Heart rate 74 /min Dr. Harish Noel Work Phone: [facility] Work Phone: 01-21-2022 19:56-0500 Respiratory rate 17 /min Dr. Harish Noel Work Phone: [facility] Work Phone: 01-21-2022 19:56-0500 SaO2% (BldA) [Mass fraction] 97 % Dr. Harish Noel Work Phone: [facility] Work Phone: 01-21-2022 19:56-0500 Systolic blood pressure 162 mm[Hg] Dr. Harish Noel Work Phone: [facility] Work Phone: 01-21-2022 15:54-0500 Body height 157.[address] Harish Noel Work Phone: [facility] Work Phone: 01-21-2022 15:54-0500 Body mass index (BMI) [Ratio] 42.4 kg/m2 Dr. Harish Noel Work Phone: [facility] Work Phone: 01-21-2022 15:54-0500 Body temperature 97.4 [degF] Dr. Harish Noel Work Phone: [facility] Work Phone: 01-21-2022 15:54-0500 Body weight 105.[address] Harish Noel Work Phone: [facility] Work Phone: 01-11-2022 15:21-0400 Body height 157.[address] Harish Noel Work Phone: [facility] Work Phone: 01-11-2022 15:21-0400 Body mass index (BMI) [Ratio] 40.9 kg/m2 Dr. Harish Noel Work Phone: [facility] Work Phone: 01-11-2022 15:21-0400 Body weight 101.[address] Harish Noel Work Phone: [facility] Work Phone: 01-11-2022 15:21-0400 Diastolic blood pressure 68 mm[Hg] Dr. Harish Noel Work Phone: [facility] Work Phone: 01-11-2022 15:21-0400 Heart rate 71 /min Dr. Harish Noel Work Phone: [facility] Work Phone: 01-11-2022 15:21-0400 Respiratory rate 18 /min Dr. Harish Noel Work Phone: [facility] Work Phone: 01-11-2022 15:21-0400 Systolic blood pressure 134 mm[Hg] Dr. Harish Noel Work Phone: [facility] Work Phone: 01-08-2022 14:16-0400 Body temperature 98.1 [degF] Dr. Harish Noel Work Phone: [facility] Work Phone: 01-08-2022 14:16-0400 Body weight 100.[address] Harish Noel Work Phone: [facility] Work Phone: 01-08-2022 14:16-0400 Diastolic blood pressure 84 mm[Hg] Dr. Harish Noel Work Phone: [facility] Work Phone: 01-08-2022 14:16-0400 Heart rate 84 /min Dr. Harish Noel Work Phone: [facility] Work Phone: 01-08-2022 14:16-0400 Respiratory rate 18 /min Dr. Harish Noel Work Phone: [facility] Work Phone: 01-08-2022 14:16-0400 SaO2% (BldA) [Mass fraction] 92 % Dr. Harish Noel Work Phone: [facility] Work Phone: 01-08-2022 14:16-0400 Systolic blood pressure 136 mm[Hg] Dr. Harish Noel Work Phone: [facility] Work Phone: 11-29-2021 11:55-0400 Body temperature 98.24 [degF] POLLY PHILIPPE MD [facility] 11-29-2021 11:55-0400 Diastolic Blood Pressure NBP 62 1 POLLY PHILIPPE MD [facility] 11-29-2021 11:55-0400 Heart rate 93 /min POLLY PHILIPPE MD [facility] 11-29-2021 11:55-0400 Mean blood pressure 77 mm[Hg] POLLY PHILIPPE MD [facility] 11-29-2021 11:55-0400 Reason For Taking VItal Signs POLLY PHILIPPE MD [facility] 11-29-2021 11:55-0400 Systolic Blood Pressure NBP 112 1 POLLY PHILIPPE MD [facility] 11-29-2021 10:33-0400 Heart rate 89 /min POLLY PHILIPPE MD [facility] 11-29-2021 09:05-0400 Heart rate 101 /min POLLY PHILIPPE MD [facility] 11-29-2021 07:28-0400 Body temperature 98.6 [degF] POLLY PHILIPPE MD [facility] 11-29-2021 07:28-0400 Diastolic Blood Pressure NBP 63 1 POLLY PHILIPPE MD [address] [place] [address] 11-29-2021 07:28-0400 Mean blood pressure 78 mm[Hg] POLLY PHILIPPE MD [address] [place] [address] 11-29-2021 07:28-0400 Reason For Taking VItal Signs POLLY PHILIPPE MD [address] [place] [address] 11-29-2021 07:28-0400 Respiratory rate 18 /min POLLY PHILIPPE MD [address] 11-29-2021 07:28-0400 Systolic Blood Pressure NBP 114 1 POLLY PHILIPPE MD [address] [place] [address] 11-29-2021 04:28-0400 Body temperature 98.6 [degF] POLLY PHILIPPE MD [address] 11-29-2021 04:28-0400 Diastolic Blood Pressure NBP 52 1 POLLY PHILIPPE MD [address] [place] [address] 11-29-2021 04:28-0400 Mean blood pressure 64 mm[Hg] POLLY PHILIPPE MD [address] [place] [address] 11-29-2021 04:28-0400 Reason For Taking VItal Signs POLLY PHILIPPE MD [address] [place] [address] 11-29-2021 04:28-0400 Respiratory rate 18 /min POLLY PHILIPPE MD [address] [place] [address] 11-29-2021 04:28-0400 Systolic Blood Pressure NBP 109 1 POLLY PHILIPPE MD [address] [place] [address] 11-29-2021 00:35-0400 Respiratory rate 18 /min POLLY PHILIPPE MD [facility] 11-28-2021 03:43-0400 SaO2% (BldA) [Mass fraction] 94.9 % POLLY PHILIPPE MD [facility] 11-27-2021 23:49-0400 Heart rate 98 /min POLLY PHILIPPE MD [facility] 11-26-2021 23:14-0400 Heart rate 84 /min POLLY PHILIPPE MD [facility] 11-26-2021 22:40-0400 SaO2% (BldA) [Mass fraction] 94.8 % POLLY PHILIPPE MD [facility] 11-26-2021 21:11-0400 SaO2% (BldA) [Mass fraction] 93.8 % POLLY PHILIPPE MD [facility] 11-26-2021 13:18-0400 Diastolic blood pressure 55 mm[Hg] POLLY PHILIPPE MD [facility] 11-26-2021 13:18-0400 Mean blood pressure 73 mm[Hg] POLLY PHILIPPE MD [facility] 11-26-2021 13:18-0400 Systolic blood pressure 113 mm[Hg] POLLY PHILIPPE MD [facility] 11-26-2021 11:24-0400 Diastolic blood pressure 58 mm[Hg] POLLY PHILIPPE MD [facility] 11-26-2021 11:24-0400 Mean blood pressure 86 mm[Hg] POLLY PHILIPPE MD [facility] 11-26-2021 11:24-0400 Systolic blood pressure 127 mm[Hg] POLLY PHILIPPE MD [facility] 11-26-2021 10:06-0400 Diastolic blood pressure 55 mm[Hg] POLLY PHILIPPE MD [facility] 11-26-2021 10:06-0400 Mean blood pressure 82 mm[Hg] POLLY PHILIPPE MD [facility] 11-26-2021 10:06-0400 Systolic blood pressure 123 mm[Hg] POLLY PHILIPPE MD [facility] 11-26-2021 09:30-0400 Diastolic blood pressure 52 mm[Hg] POLLY PHILIPPE MD [facility] 11-26-2021 09:30-0400 Heart rate 77 /min POLLY PHILIPPE MD [address] [place] [address] 11-26-2021 09:30-0400 Mean blood pressure 73 mm[Hg] POLLY PIHLIPPE MD [address] [place] [address] 11-26-2021 09:30-0400 Systolic blood pressure 116 mm[Hg] POLLY PHILIPPE MD [address] [place] [address] 11-26-2021 06:29-0400 Heart rate 88 /min POLLY PHILIPPE MD [facility] 11-25-2021 00:10-0400 Body temperature 98.42 [degF] POLLY PHILIPPE MD [address] [place] [address] 11-24-2021 20:09-0400 Body temperature 98.06 [degF] POLLY PHILIPPE MD [address] 11-24-2021 15:35-0400 Body temperature 98.42 [degF] POLLY PHILIPPE MD [facility] 11-23-2021 12:45-0400 Body temperature 98.44 [degF] POLLY PHILIPPE MD [facility] 11-23-2021 12:45-0400 Body temperature 97.88 [degF] POLLY PHILIPPE MD [facility] 11-23-2021 12:40-0400 Body temperature 98.55 [degF] POLLY PHILIPPE MD [address] [place] [address] 11-23-2021 12:40-0400 Body temperature 97.93 [degF] POLLY PHILIPPE MD [facility] 11-23-2021 12:35-0400 Body temperature 98.56 [degF] POLLY PHILIPPE MD [facility] 11-23-2021 12:35-0400 Body temperature 98.01 [degF] POLLY PHILIPPE MD [facility] 11-23-2021 12:11-0400 SaO2% (BldA) [Mass fraction] 97.8 % POLLY PHILIPPE MD [facility] 11-23-2021 11:29-0400 SaO2% (BldA) [Mass fraction] 99.2 % POLLY PHILIPPE MD [facility] 11-23-2021 11:00-0400 SaO2% (BldA) [Mass fraction] 99.0 % POLLY PHILIPPE MD [facility] 11-23-2021 06:01-0400 Heart rate 76 /min POLLY PHILIPPE MD [facility] 11-23-2021 05:54-0400 Body height 157.5 cm POLLY PHILIPPE MD [facility] 11-23-2021 05:54-0400 Body weight 102.3 kg POLLY PHILIPPE MD [facility] 11-23-2021 05:54-0400 Body weight 41.24 kg/m2 POLLY PHILIPPE MD [facility] 11-23-2021 05:54-0400 diastolic 105 mm[Hg] POLLY PHILIPPE MD [facility] 11-23-2021 05:54-0400 systolic 131 mm[Hg] POLLY PHILIPPE MD [facility] 11-05-2021 04:06-0400 Diastolic blood pressure 77 mm[Hg] Dr. Harish Noel Work Phone: [facility] Work Phone: 11-05-2021 04:06-0400 Heart rate 79 /min Dr. Harish Noel Work Phone: [facility] Work Phone: 11-05-2021 04:06-0400 Respiratory rate 20 /min Dr. Harish Noel Work Phone: [facility] Work Phone: 11-05-2021 04:06-0400 SaO2% (BldA) [Mass fraction] 95 % Dr. Harish Noel Work Phone: [facility] Work Phone: 11-05-2021 04:06-0400 Systolic blood pressure 159 mm[Hg] Dr. Harish Noel Work Phone: [facility] Work Phone: 11-05-2021 02:14-0400 Body height 157.[address] Harish Noel Work Phone: [facility] Work Phone: 11-05-2021 02:14-0400 Body mass index (BMI) [Ratio] 41.8 kg/m2 Dr. Harish Noel Work Phone: [facility] Work Phone: 11-05-2021 02:14-0400 Body temperature 98.1 [degF] Dr. Harish Noel Work Phone: [facility] Work Phone: 11-05-2021 02:14-0400 Body weight 103.[address] Harish Noel Work Phone: [facility] Work Phone: 09-08-2021 14:58-0400 Diastolic blood pressure 81 mm[Hg] Dr. Harish Noel Work Phone: [facility] Work Phone: 09-08-2021 14:58-0400 SaO2% (BldA) [Mass fraction] 94 % Dr. Harish Noel Work Phone: [facility] Work Phone: 09-08-2021 14:58-0400 Systolic blood pressure 157 mm[Hg] Dr. Harish Noel Work Phone: [facility] Work Phone: 09-08-2021 11:55-0400 Body height 157.[address] Harish Noel Work Phone: [facility] Work Phone: 09-08-2021 11:55-0400 Body mass index (BMI) [Ratio] 40.7 kg/m2 Dr. Harish Noel Work Phone: [facility] Work Phone: 09-08-2021 11:55-0400 Body temperature 97.1 [degF] Dr. Harish Noel Work Phone: [facility] Work Phone: 09-08-2021 11:55-0400 Body weight 101.[address] Harish Noel Work Phone: [facility] Work Phone: 09-08-2021 11:55-0400 Heart rate 101 /min Dr. Harish Noel Work Phone: [facility] Work Phone: 09-08-2021 11:55-0400 Respiratory rate 22 /min Dr. Harish Noel Work Phone: [facility] Work Phone: 09-05-2021 07:52-0400 Body height 157.[address] Harish Noel Work Phone: [facility] Work Phone: 09-05-2021 07:52-0400 Body weight 100.[address] Harish Noel Work Phone: [facility] Work Phone: 09-01-2021 12:02-0400 Body mass index (BMI) [Ratio] 40.6 kg/m2 Dr. Harish Noel Work Phone: [facility] Work Phone: 08-28-2021 09:45-0400 Body mass index (BMI) [Ratio] 40.6 kg/m2 Dr. Harish Noel Work Phone: [facility] Work Phone: 08-28-2021 09:45-0400 Body weight 100.[address] Harish Noel Work Phone: [facility] Work Phone: 08-28-2021 09:45-0400 Diastolic blood pressure 71 mm[Hg] Dr. Harish Noel Work Phone: [facility] Work Phone: 08-28-2021 09:45-0400 Heart rate 87 /min Dr. Harish Noel Work Phone: [facility] Work Phone: 08-28-2021 09:45-0400 Respiratory rate 18 /min Dr. Harish Noel Work Phone: [facility] Work Phone: 08-28-2021 09:45-0400 Systolic blood pressure 134 mm[Hg] Dr. Harish Noel Work Phone: [facility] Work Phone: 06-16-2021 15:17-0400 Body mass index (BMI) [Ratio] 41.1 kg/m2 Dr. Harish Noel Work Phone: [facility] Work Phone: 06-16-2021 15:17-0400 Body weight 102.[address] Harish Noel Work Phone: [facility] Work Phone: 06-16-2021 15:17-0400 Diastolic blood pressure 83 mm[Hg] Dr. Harish Noel Work Phone: [facility] Work Phone: 06-16-2021 15:17-0400 Heart rate 83 /min Dr. Harish Noel Work Phone: [facility] Work Phone: 06-16-2021 15:17-0400 Respiratory rate 18 /min Dr. Harish Noel Work Phone: [facility] Work Phone: 06-16-2021 15:17-0400 Systolic blood pressure 163 mm[Hg] Dr. Harish Noel Work Phone: [facility] Work Phone: 06-16-2021 15:17-0400 Body height 157.[address] Harish Noel Work Phone: [facility] Work Phone: 06-16-2021 15:17-0400 Body mass index (BMI) [Ratio] 41.1 kg/m2 Dr. Harish Noel Work Phone: [facility] Work Phone: 06-16-2021 15:17-0400 Body weight 102.[address] Harish Noel Work Phone: [facility] Work Phone: 06-16-2021 15:17-0400 Diastolic blood pressure 83 mm[Hg] [facility] Harish Noel Work Phone: [facility] [facility] Work Phone: 06-16-2021 15:17-0400 Heart rate 83 /min Dr. Harish Noel Work Phone: [facility] Work Phone: 06-16-2021 15:17-0400 Respiratory rate 18 /min Dr. Harish Noel Work Phone: [facility] Work Phone: 06-16-2021 15:17-0400 Systolic blood pressure 163 mm[Hg] Dr. Harish Noel Work Phone: [facility] Work Phone: 06-07-2021 08:26-0400 Body temperature 96.4 [degF] Dr. Harish Noel Work Phone: [facility] Work Phone: 06-07-2021 08:26-0400 Body weight 104.[address] Harish Noel Work Phone: [facility] Work Phone: 06-07-2021 08:26-0400 Diastolic blood pressure 90 mm[Hg] Dr. Harish Noel Work Phone: [facility] Work Phone: 06-07-2021 08:26-0400 Heart rate 90 /min Dr. Harish Noel Work Phone: [facility] Work Phone: 06-07-2021 08:26-0400 Respiratory rate 16 /min Dr. Harish Noel Work Phone: [facility] Work Phone: 06-07-2021 08:26-0400 Systolic blood pressure 160 mm[Hg] Dr. Harish Noel Work Phone: [facility] Work Phone: 06-07-2021 08:26-0400 Body temperature 96.4 [degF] Dr. Harish Noel Work Phone: [facility] Work Phone: 06-07-2021 08:26-0400 Body weight 104.[address] Harish Noel Work Phone: [facility] Work Phone: 06-07-2021 08:26-0400 Diastolic blood pressure 90 mm[Hg] Dr. Harish Noel Work Phone: [facility] Work Phone: 06-07-2021 08:26-0400 Heart rate 90 /min Dr. Harish Noel Work Phone: [facility] Work Phone: 06-07-2021 08:26-0400 Respiratory rate 16 /min Dr. Harish Noel Work Phone: [facility] Work Phone: 06-07-2021 08:26-0400 Systolic blood pressure 160 mm[Hg] Dr. Harish Noel Work Phone: [facility] Work Phone: 04-25-2021 14:02-0500 Diastolic blood pressure 82 mm[Hg] Dr. Harish Noel Work Phone: [facility] Work Phone: 04-25-2021 14:02-0500 Heart rate 80 /min Dr. Harish Noel Work Phone: [facility] Work Phone: 04-25-2021 14:02-0500 Respiratory rate 13 /min Dr. Harish Noel Work Phone: [facility] Work Phone: 04-25-2021 14:02-0500 SaO2% (BldA) [Mass fraction] 98 % Dr. Harish Noel Work Phone: [facility] Work Phone: 04-25-2021 14:02-0500 Systolic blood pressure 156 mm[Hg] Dr. Harish Noel Work Phone: [facility] Work Phone: 04-25-2021 10:28-0500 Body mass index (BMI) [Ratio] 41.1 kg/m2 Dr. Harish Noel Work Phone: [facility] Work Phone: 04-25-2021 10:28-0500 Body temperature 96.1 [degF] Dr. Harish Noel Work Phone: [facility] Work Phone: 04-25-2021 10:28-0500 Body weight 102.[address] Harish Noel Work Phone: [facility] Work Phone: Encounters Encounter Date Encounter Type Care Provider Facility Start: 07-16-2024 End: 07-16-[address] Harish Noel MD Work Phone: [facility] Work Phone: Start: 07-16-2024 End: 07-16-[address] Harish Noel MD -Laboratory Work Phone: Start: 07-16-2024 End: 07-16-2024 ambulatory [facility] Facility:[facility] Start: 07-02-2024 End: 07-02-[address] Harish Noel MD -[facility] Work Phone: Start: 07-02-2024 End: 07-02-2024 ambulatory [facility] Facility:[facility] Start: 04-30-2024 Non-patient / Non-visit Dr. Nathan smith -[facility] Work Phone: Start: 04-30-2024 Non-patient / Non-visit Dr. Lianne Cruz MD -[facility] Start: 04-29-2024 End: 04-29-2024 ambulatory [facility] Facility:[facility] Start: 04-29-2024 End: 04-29-2024 Non-patient / Non-visit Dr. Delgado Cruz MD -[facility] Work Phone: Start: 04-29-2024 End: 04-30-2024 ambulatory [facility] Facility:[facility] Start: 04-29-2024 End: 04-30-2024 Evaluation and management of inpatient Dr. Nathan Torres DO -[facility] Work Phone: Start: 01-16-2024 End: 01-17-2024 ambulatory Harish Noel Facility:[facility] Start: 01-15-2024 End: 01-15-2024 Emergency department patient visit Harish Noel Facility:[facility] Start: 09-03-2023 End: 09-03-2023 Emergency department patient visit Harish Noel Facility:[facility] Start: 09-02-2023 End: 09-02-2023 Emergency department patient visit Harish Noel Facility:[facility] Start: 08-05-2023 End: 08-05-2023 ambulatory Harish Noel Facility:[facility] Start: 07-28-2022 End: 07-28-2022 Emergency department patient visit Dr. Harish Noel Work Phone: [facility] Start: 06-11-2022 End: 06-11-[address] Harish Noel Work Phone: [facility] Work Phone: Start: 06-11-2022 End: 06-11-[address] Harish Noel Work Phone: [facility] Start: 05-16-2022 End: 05-16-[address] Harish Noel Work Phone: [facility] Start: 04-11-2022 End: 04-11-[address] Harish Noel Work Phone: [facility] Start: 01-21-2022 End: 01-21-2022 Emergency department patient visit Dr. Harish Noel Work Phone: [facility] Start: 01-15-2022 Non-patient / Non-visit Dr. Madison Noel Work Phone: [facility] Start: 01-11-2022 End: 01-11-[address] Harish Noel Work Phone: [facility] Work Phone: Start: 01-11-2022 End: 01-11-[address] Harish Noel Work Phone: [facility] Start: 01-11-2022 End: 01-11-[address] Harish Noel Work Phone: [facility] Start: 01-08-2022 End: 01-08-[address] Harish Noel Work Phone: [facility] Start: 12-27-2021 End: 12-28-2021 ambulatory MS. JUAN JUAREZ PARTS AND SERVICE MANAGER Facility:A Start: 12-27-2021 End: 12-27-2021 Patient encounter procedure JUAN JUAREZ WOMEN'S BASKETBALL COACH-PARTS AND SERVICE MANAGER [facility] Start: 12-13-2021 End: 12-14-2021 ambulatory MS. JUAN JUAREZ PARTS AND SERVICE MANAGER Facility:A Start: 12-13-2021 End: 12-13-2021 Patient encounter procedure JUAN JUAREZ WOMEN'S BASKETBALL COACH-[facility] Start: 12-05-2021 Non-patient / Non-visit Dr. Madison Noel Work Phone: [facility] Start: 11-23-2021 End: 11-29-2021 Evaluation and management of inpatient POLLY PHILIPPE MD Facility:A Start: 11-23-2021 End: 11-29-2021 Evaluation and management of inpatient POLLY PHILIPPE MD [facility] Start: 11-17-2021 End: 11-18-2021 ambulatory POLLY PHILIPPE MD Facility:B Start: 11-17-2021 End: 11-17-2021 Patient encounter procedure [facility]ILIPPE [facility] Start: 11-05-2021 End: 11-05-2021 Emergency department patient visit Dr. Harish Noel Work Phone: [facility] Start: 10-31-2021 End: 11-01-2021 ambulatory POLLY PHILIPPE MD Facility:A Start: 10-31-2021 End: 11-01-2021 ambulatory POLLY PHILIPPE MD Facility:A Start: 10-11-2021 End: 10-11-2021 Emergency department patient visit HARISH NOEL MD. Facility:A Start: 09-08-2021 End: 09-08-2021 Emergency department patient visit Dr. Harish Noel Work Phone: [facility] Start: 09-05-2021 Non-patient / Non-visit Dr. Madison Noel Work Phone: [facility] Start: 09-05-2021 End: 09-05-2021 Admission to same day surgery center Dr. Harish Noel Work Phone: [facility]-Program Engineer/Special Procedures Start: 09-04-2021 Non-patient / Non-visit Dr. Madison Noel Work Phone: [facility] Start: 08-28-2021 End: 08-28-[address] Harish Noel Work Phone: [facility] Start: 07-25-2021 Non-patient / Non-visit Dr. Madison Noel Work Phone: [facility] Start: 07-24-2021 End: 07-24-[address] Harish Noel Work Phone: [facility]Pulmonary Services/Neurology Start: 07-21-2021 Non-patient / Non-visit Dr. Madison Noel Work Phone: [facility] Start: 07-21-2021 End: 07-21-[address] Harish Noel Work Phone: [facility]Cardiovascula r Services Start: 06-16-2021 End: 06-16-[address] Harish Noel Work Phone: [facility] Start: 06-07-2021 End: 06-07-[address] Harish Noel Work Phone: [facility]-Laboratory, [facility] Start: 06-07-2021 End: 06-07-[address] Harish Noel Work Phone: [facility] Start: 04-25-2021 End: 04-25-2021 Emergency department patient visit Dr. Harish Noel Work Phone: [facility] Start: 09-15-2016 End: 09-15-2016 Emergency department patient visit [facility] Facility:[facility] Procedures Date Procedure Procedure Detail Performing [...] above: [facility] Start: 11-05-2021 [...] CABG x 2( Confirmed ) JUAN JUAREZ WOMEN'S BASKETBALL COACH-PARTS AND SERVICE MANAGER History of coronary artery bypass grafting Hx of CABG Dr. Harish Noel MD Work Phone: Hysterectomy POLLY PHILIPPE MD Viral antigen assay Dr. Ida Noel Work Phone: Plan of Treatment Date Care Activity Detail Author Start: 07-02-2024 Patient referral [facility] Work Phone: Start: 04-30-2024 Patient discharge [facility] Start: 04-30-2024 Inhalation therapy procedure [facility] Start: 04-29-2024 Following clinical p athway protocol [facility] Start: 04-29-2024 Assessment of risk o f venous thromboembolism [facility] Start: 04-29-2024 Care regimes management [facility] Start: 04-29-2024 Catheterization of vein [facility] Start: 04-29-2024 Incentive spirometry [facility] Start: 04-29-2024 Insertion of cathete r into peripheral vein [facility] Start: 04-29-2024 Measuring intake and output [facility] Start: 04-29-2024 Notification of physician [facility] Start: 04-29-2024 Oxygen therapy [facility] Start: 04-29-2024 Providing care accor ding to standard [facility] Start: 04-29-2024 Provision of activity privileges [facility] Start: 04-29-2024 Referral to service [facility] Start: 04-29-2024 End: 04-29-2024 [facility] Start: 04-29-2024 Admission procedure [facility] Start: 04-29-2024 Patient referral to dietitian [facility] Start: 05-16-2022 Patient referral [facility] Work Phone: Start: 04-11-2022 Patient referral [facility] Work Phone: Start: 11-05-2021 [facility] Work Phone: Start: 09-08-2021 [facility] Work Phone: Patient Education [facility] Work Phone: Patient referral [facility] Work Phone: Payers Date Payer Category Payer Unknown [id number] 2023 Self-pay [id number] 2021 Medicare [id number] fad [id number] 2016 Medicaid [id number] 1950 Unknown [id number] 2.16.8 [id number] 1950 Unknown [id number] 2.16.8 [id number] 1950 Unknown [id number] 2.16.8 40.1.541767.3.579.2.627 1950 Unknown [id number] 2.16.8 40.1.285304.3.579.2.627 1950 Unknown [id number] 2.16.8 40.1.783019.3.579.2.627 1950 Unknown [id number] 2.16.8 40.1.553113.3.579.2.627 1950 Unknown [id number] 2.16.8 40.1.749365.3.579.2.627 Unknown [id number] 2.16.8 40.1.812250.3.579.2.462 Unknown [id number] 2.16.8 40.1.961201.3.579.2.462 Unknown [id number] 2.16.8 40.1.940685.3.579.2.462 Unknown [id number] 2.16.8 40.1.934902.3.579.2.462 Unknown [id number] 2.16.8 40.1.488025.3.579.2.462 Unknown [id number] 2.16.8 40.1.879571.3.579.2.462 Unknown [id number] 2.16.8 40.1.567559.3.579.2.462 Unknown [id number] 2.16.8 40.1.525115.3.579.2.462 Unknown [id number] 2.16.8 40.1.255169.3.579.2.462 Unknown [id number] 2.16.8 40.1.915532.3.579.2.462 Unknown [id number] 2.16.8 40.1.729604.3.579.2.462 Unknown [id number] 2.16.8 40.1.062746.3.579.2.462 Unknown [id number] 2.16.8 40.1.297904.3.579.2.462 Social History Date Type Detail Facility Start: 06-16-2021 End: 07-28-2022 Tobacco smoking status NHIS Unknown if ever smoked [facility] Start: 07-05-2020 Non-smoker [facility] Start: 1950 Sex Assigned At Female A [facility] Start: 10-31-2021 End: 04-29-2024 Tobacco smoking status Ex-smoker (finding) [facility] Comment on above: Quit in 2015 Start: 07-22-2024 Sex Female (finding) [facility] Goals Date Patient Goal Desired Activity /State Functional Status Date Assessment Result Facility 04-30-2024 Functional status Ambulates;Bathroom Priv ilege [facility] Work Phone: 11-29-2021 Functional Status Supervised 1 [facility] 11-29-2021 Functional Status COVID 19 Surge in Effec t Yes [facility] 11-28-2021 Functional Status Ambulation in [place] [facility] 11-28-2021 Functional Status [facility] 11-28-2021 Functional Status Mod I [facility] 11-28-2021 Functional Status Supervised 12 [facility] 11-28-2021 Functional Status Bath cloths, Shampoo/Body wash (no rinse) [facility] 11-27-2021 Functional Status [facility] 11-27-2021 Functional Status [facility] 11-27-2021 Functional Status Done [facility] 11-27-2021 Functional Status bilateral knee high [facility] 11-27-2021 Functional Status [facility] 11-26-2021 Functional Status [facility] 11-25-2021 Functional Status No falls in th e last 6 months, per pt. [facility] 11-25-2021 Functional Status [facility] 11-25-2021 Functional Status [facility] 11-25-2021 Functional Status SCD On/Re-appl ied bilateral knee high [facility] 11-25-2021 Functional Status [facility] 11-25-2021 Functional Status [facility] 11-24-2021 Functional Status preventative foam dress ing [facility] 11-24-2021 Functional Status 100 [facility] 11-24-2021 Functional Status Apartment, Single level home [facility] 11-23-2021 Functional Status [facility] 11-23-2021 Functional Status Special Call D evice Unable to use call device [facility] 11-23-2021 Functional Status [facility] 11-23-2021 Functional Status [facility] 11-23-2021 Functional Status Sensory Deficits None A [facility] Mental Status Date Assessment Result Facility 04-30-2024 Cognitive function Voice/Name [facility] Work Phone: 11-29-2021 Mental Status Oriented x 4 [facility] 11-29-2021 Mental Status [facility] 11-28-2021 Mental Status [facility] 11-05-2021 Cognitive function Voice/Name [facility] Work Phone: 09-08-2021 Cognitive function Level Of Cons ciousness Awake;Alert;Appropriate;Follow s Commands [facility] Work Phone: 04-25-2021 Cognitive function Voice/Name [facility] Work Phone: Clinical Notes 03-18-2016 to 04-30-2024 Note Date & Type Note Facility 04-30-2024 Note [facility] Medical Records Department [address] [place] [address] Discharge Summary 04/30/24 1446 MR#: [id number] Acct: [id number] Name: FELICITAS ALCANTARA Rep #: [id number] : 1950 73 From: Nathan Torres DO PCP: Dr. Harish Noel MD Status:ADM RUBINA Location: [place] [address] Providers Date of Admission: 04/29/24 Primary Care [...] 79.6 H, Lymph % (Auto) 12.1 L, [place] % (Auto) 4.9, Eos % (Auto) 2.3, [...] Clarity Clear, Urine pH 8.0, Ur Specific [place] 1.010, Urine Protein Negative, Urine Glucose (UA) [...] 90.6 H, Lymph % (Auto) 7.1 L, [place] % (Auto) 0.5, Eos % (Auto) 0.0, [...] cardiomegaly. Otherwise unremarkable chest radiograph. Reading Location: [id number] D/C Instructions Discharge Diet: 2000 Calorie Control [...] reason for non-treat (more content not included)... [facility] 04-29-2024 Evaluation note Diagnosis Onset Date Resolution [...] July 02 12:52pm Atherosclerotic heart disease of [place] coronary artery without angina pectoris chronic July 02, 2024 12:52pm Essential hypertension chronic July 02, 2024 12:52pm Hyperlipemia chronic July 02, 2024 12:52pm Hypothyroidism chronic June 12:52pm Type 2 diabetes mellitus chronic July 02, 2024 12:52pm Chest pain noneactive July 02 12:52pm [facility] Work Phone: 1(899) 593-734311-06-2022 Hospital Discharge instructions Additional Instructions 2 puffs of albuterol metered-dose inhaler every 4-6 hours for shortness of breath or wheezing.[facility] Work Phone: 1(382) 183-612410-13-2022 Note ORIGINAL EXAMINATION: TWO XRAY VIEWS OF [...] Sign Date: 12/28/2021 12:02:56 AM Ordering Provider: [facility]10-12-2022 Note ORIGINAL EXAMINATION: TWO XRAY VIEWS [...] Sign Date: 12/28/2021 12:02:56 AM Ordering Provider: [facility]09-16-2022 Evaluation + Plan note Future Scheduled Tests Laboratory* Basic Metabolic Panel 12/01/21 Radiology* XR Chest 2 Views (PA & Lateral) 12/19/21 [facility] 09-15-2022 Note ORIGINAL EXAMINATION: TWO XRAY VIEWS [...] 11/30/2021 12:35:45 AM Ordering Provider: NAT DUNN [id number] Note Discharge Instructions Thank you for allowing [facility] to assist you with your healthcare needs. The following is importantdischarge information regarding your hospital visit. Your Care Team HARISH NOEL MD Your Diagnosis CAD IN [place] ARTERY s/p PCI 2015; s/p CABG x2 [...] Op 12/05/2021 10:00 AM EDT JUAN JUAREZ [facility] Cardiothoracic Surgery Follow Up Appointments Follow Up with JUAN JUAREZ When 12/05/2021 10:00 AM EDT Why: This will be with Dr. Philippe's nurse practitioner. Please present to [place] radiology department 1 hour prior to this visit for chest x-ray. Chest padmini will be removed at this visit. Where: [address] [facility] [place] [address]- Follow Up with Discharge to [facility] LOC [phone] When Within 1-2 days Follow Up with GGAE CHIRINOS MD, [facility] When Why: Please call rianna for follow-up appointment in 4-6 weeks (re: diabetes), can schedule at [place] office. Bring blood glucose meter with you to your appointment. Where: [address] [place] [address] [phone] Follow Up with SAQIB FRASER [facility], [facility] When Within 1-2 days Why: Please call to arrange a hospital follow-up and possible trial void. Where: [address] [facility] [address]- [phone] Follow Up with HARISH NOEL MD When Within 1-2 days Why: Please call to arrange a hospital follow-up. Where: [address] [place] [address]- [phone] Follow Up with free When Why: Follow up with primary care to have a Sleep Study ordered Where: Follow Up with Cardiac Rehab When Why: The Cardiac Rehab department will call you in 6 weeks to schedule you for phase 2. Informationgiven about cardiac rehab. If you have any questions please call [phone]. Where: [address] [facility] [place] [address]- The Following Activity and Diet Have Been [...] to: POLLY PHILIPPE MD, Please present to [place] radiology department 1 hour prior to office [...] for every person. A diet and nutrition aides teacher (registered dietitian) can help you make a [...] 15 g of carbohydrates: hamburger bun or Bolivian muffin. oz (15 mL) syrup. oz (14 [...] Identify the foods that contain carbohydrates: Rice. [place]. Milk. Strawberries. 2. Calculate how many servings [...] manage your diabetes. A diet and nutrition aides teacher (registered dietitian) can help you make a meal plan and calculate how many carbohydrates you should have at each meal and snack. This information is not intended to replace advice given to you by your health care provider. Make sure you discuss any questions you have with your health care provider. Document Released: 03/04/2006 Document Revised: 09/26/2017 Document Reviewed: 08/15/2016 [employer] Patient Education 2020 [employer] OPEN HEART SURGERY (Bypass or Valve [...] diet and you may take a mild mnbn-rpc-sjwyuoy laxative like Milk of Magnesia . CARDIAC [...] call your surgeon or your heart doctor. [place] also has a free stop smoking program called Give it Up and if you want to attend, pleasecall [phone] ([phone]). Call the Surgeon If your incisions are [...] in your calf. Call the Heart Doctor (Drawer Maker) If your heart beats are irregular or [...] to receive it can visit one of [facility] vaccine clinics. There are many vaccine clinic locations within the [facility]. For locations and available times, please visit [email or web address].gov/. It is important to note that some COVID mobile vaccine clinics are held outdoors and may be canceled in rainy or stormy conditions. To learn more about pediatric vaccinations (ages 5-11), we invite you to visit the [facility] webpage. https://[email or web address]/pages/[email or web address]-[email or web address]-Bwkpkjtcxy-Vdfhm-Ptw stions.htmlTo learn more about the COVID-19 vaccine, we invite you to visit the [facility] website for a list of frequently asked questions. [email or web address].pdf [facility] Patient Portal Access Instructions: Stay connected with your healthcare team and access your personal medical information anytime with the [facility] Patient Portal.If you would like a full copy of your medical records, please contact the [facility] Medical Records Department, Saturday through Saturday between 8a.m. and 4:30p.m. Please follow the directions below to access the portal: 1.Access the email account you provided upon registration to the [facility].2.Look for an invitation email from [facility].3.Open the email and access the invitation link: Accept Invitation to [facility]4.Fill in the required singer to create your account. Sign into www.SEE Forge with your username and password that you [...] you will allow to register on the [facility] [facility] Patient Portal for access to your information. You can also access the [facility] Patient Portal on the [employer] ina. Simply click on Health Records under Clutter and then click on the [facility] [...] Call your local pharmacy or go to http://bit.ly/1W5Oj5t to find one close to you.3.Make use of household items: Use cat litter or old coffee grounds to dispose medications if other options arenot available. Mix your drugs with these household products, seal them in an airtight container andthrow it into the garbage. Call [facility]: [phone] to be sure your drugs can be [...] am aware that I should contactmy doctor. 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 Signature: Date/Time: Relationship to Patient: Witness Name/Signature: [facility]Time[id number] Endocr[facility]ology Progress note Date of Service 11/29/2021 [...] Glucose, Capillary 11/29/2021 07:28:00 EDT 174 mg/dL OR 82-115 Glucose Testing Glucose Level 11/29/2021 04:54:00 EDT 168 mg/dL OR 82-115 Glucose Testing Blood Glucose, Capillary 11/28/2021 20:21:00 EDT 159 mg/dL OR 82-115 Glucose Testing Blood Glucose, Capillary 11/28/2021 16:40:00 EDT 159 mg/dL HI 82-115 Y Glucose Testing Blood Glucose, Capillary 11/28/2021 11:53:00 EDT 202 mg/dL OR 82-115 Glucose Testing Blood Glucose, Capillary 11/28/2021 07:15:00 EDT 205 mg/dL OR 82-115 EKG No qualifying data available. Assessment/Plan 1. CAD IN NAN[place]K ARTERY s/p PCI 2015; s/p CABG x2 [...] had a cardiac catheterization completed with her or manager, Dr. Jewell in [place] which revealed an EF of 55% with [...] by DIVINA DOSS on 11/29/2021 11:37 AM [id number] Discharge instructions Patient Education 11/29/2021 08:48:47 [...] 05/16/2007 Document Revised: 03/03/2018 Document Reviewed: 03/03/2018 [employer] ([employer]) Patient Education 2020 [employer]. 11/29/2021 08:48:46 Carbohydrate Counting for Diabetes Mellitus, [...] for every person. A diet and nutrition aides teacher (registered dietitian) can help you make a [...] 15 g of carbohydrates: hamburger bun or Bolivian muffin. oz (15 mL) syrup. oz (14 [...] 1.Identify the foods that contain carbohydrates: Rice. [place]. Milk. Strawberries. 2.Calculate how many servings you [...] manage your diabetes. A diet and nutrition aides teacher (registered dietitian) can help you make a meal plan and calculate how many carbohydrates you should have at each meal and snack. This information is not intended to replace advice given to you by your health care provider. Make sure you discuss any questions you have with your health care provider. Document Released: 03/04/2006 Document Revised: 09/26/2017 Document Reviewed: 08/15/2016 [employer] ([employer]) Patient Education 2020 [employer]. 11/29/2021 08:48:44 8- Open Heart Surgery (Bypass [...] diet and you may take a mild vtto-nuc-lwznxxk laxative like Milk of Magnesia . CARDIAC [...] call your surgeon or your heart doctor. [place] also has a free stop smoking program called Give it Up and if you want to attend, pleasecall [phone] ([phone]). Call the Surgeon If your incisions are [...] in your calf. Call the Heart Doctor (Drawer Maker) If your heart beats are irregular or [...] Follow Up Care 10/11/2021 14:55:42 With:Discharge to [facility] [phone] Address:Unknown When:1-2 days With:GAGE CHIRINOS MD, [facility] Address: [address], [place] [phone] When: Unknown Comments:Please call rianna for follow-up appointment in 4-6 weeks (re: diabetes), can schedule at [facility]. Bring blood glucose meter with you to your appointment. With:SAQIB FRASER MD, [facility], Urology Service Address: [address] [facility] [address] [phone] When:1-2 days Comments:Please call to arrange a hospital follow-up and possible trial void. With:HARISH NOEL MD Address: [address] [place] [address]- [phone] When:1-2 days Comments:Please call to arrange a hospital follow-up. With:JUAN JUAREZ APRN-PARTS AND SERVICE MANAGER Address: [address] [place] [address] A-2 LOBO [address] [facility] [place] [address]- When:12/05/2021 10:00:00 Comments:This will be with Dr. Philippe's nurse practitioner. Please present to [place] radi[facility] department 1 hour prior to this visit for chest x-ray. Chest padmini will be removed at this visit. With:free Address: When: Unknown Comments:Follow up with primary care to have a Sleep Study ordered With:[facility] Address: [address] [place] [address] [place] [address]- When: Unknown Comments:The Cardiac Rehab department will call you in 6 weeks to schedule you for phase 2. Information given about cardiac rehab. If you have any questions please call [phone]. [facility] 09-14-2022 Discharge summary Date of Service 11/29/2021 Discharge Diagnosis 1. CAD IN NANWALEK ARTERY s/p PCI 2016; s/p CABG x2 [...] (R32 - ICD-10-CM) Atherosclerotic heart disease of [place] coronary artery without angina pectoris (I25.10 - [...] (one day only), Blood, Once, Preferred Lab: [facility], Stop date 11/29/21 4:00:00 EDT(Complete) Other status: CBC,11/29/21 5:01:00 EDT, Next AM Draw (one day only), Blood, Once, Preferred Lab: [facility], Stop date 11/29/21 4:00:00 EDT(Complete) Ordered: Communication Order (scheduled),11/29/21 9:18:00 EDT, Once, 11/29/21 9:18:00 EDT, Temporary pacer wires removed at 8:30 AM. Patient may be discharged to [facility] after 12:30 PM. Discontinued: Coreg,Start: 11/28/21 [...] to: POLLY PHILIPPE MD, Please present to [place] radiology department 1 hour prior to office [...] She hada cardiac catheterization completed with her or manager, Dr. Jewell in [place] which revealed an EF of 55% with [...] nebs. nitroprusside drip has been weaned off. [facility] [facility] consulted for diabetic management. PT/OT consulted. [...] obtain urinalysis and urine culture, and consult [facility]. WBC 20.3 this morning. Discontinue A-line. [...] greater than 200 cc. Likely discharge to [facility] tomorrow. [1]POD #6: Patient feels much better today. Denies any nausea. She is anxious to leave today. SPO2 93 to 95% on 1.5 L nasal cannula (87% on room air). CBC and BMP reviewed with Dr. Philippe as well as chest x-ray. Patient is cleared to be discharged to [facility] per Dr. Philippe. We will increase [...] and will need to follow-up with the [place] u[facility] for possible trial void versus catheter [...] obtusemarginal coronary artery. [2] Consults Consult to [facility] - Ordered -- 11/24/21 6:54:00 [...] bra or breast support. Medications New Prescription [id number] Milligram by mouth every 4 hours as [...] pain. Refills: 3. I have reviewed the [place] Automated Rx Reporting System (OARRS) report for [...] Dr. Philippe's nurse practitioner. Please present to [place] radi[facility] department 1 hour prior to this visit for chest x-ray. Chest padmini will be removed at this visit. Where: [address] [facility] A-2 LOBO [address] [facility] [place] [address]- Follow Up with Discharge to [facility] LOC [phone] When Within 1-2 days Follow Up with GAGE CHIRINOS MD, [facility] When Why: Please call rianna for follow-up appointment in 4-6 weeks (re: diabetes), can schedule at [facility]. Bring blood glucose meter with you to your appointment. Where: [address], [place] [address] [phone] Follow Up with SAQIB FRASER MD, [facility], Urology Service When Within 1-2 days Why: Please call to arrange a hospital follow-up and possible trial void. Where: [address] [place] [address]- [phone] Follow Up with HARISH NOEL MD When Within 1-2 days Why: Please call to arrange a hospital follow-up. Where: [address] [place] [address]- [phone] Follow Up with free When Why: Follow up with primary care to have a Sleep Study ordered Where: Follow Up with Cardiac Rehab When Why: The Cardiac Rehab department will call you in 6 weeks to schedule you for phase 2. Informationgiven about cardiac rehab. If you have any questions please call [phone]. Where: [address] [facility] [place] [address]- Follow Up Appointments Transfer of Care OT [...] to: POLLY PHILIPPE MD, Please present to [place] radi[facility] department 1 hour prior to office [...] To Patient [1] Progress Note; NAT DUNN APRN-PARTS AND SERVICE MANAGER 11/28/2021 10:10 EDT [2] OPERATIVE NOTE; POLLY PHILIPPE MD 11/23/2021 00:00 EDT Digitally Signed by NAT DUNN APRN-PARTS AND SERVICE MANAGER on 11/29/2021 02:50 PM [facility] [id number] Note Discharge Instructions Thank you for allowing [facility] to assist you with your healthcare needs. The following is importantdischarge information regarding your hospital visit. Your Care Team HARISH NOEL MD Your Diagnosis CAD IN NANWALEK ARTERY s/p PCI 2015; s/p CABG x2 [...] Op 12/05/2021 10:00 AM EDT JUAN JUAREZ [facility] Follow Up Appointments Follow Up with JUAN JUAREZ When 12/05/2021 10:00 AM EDT Why: This will be with Dr. Philippe's nurse practitioner. Please present to [place] [facility] department 1 hour prior to this visit for chest x-ray. Chest padmini will be removed at this visit. Where: [address] A-2 LOBO [address] [facility] [place] [address]- Follow Up with Discharge to [facility] LOC [phone] When Within 1-2 days Follow Up with GAGE CHIRINOS MD, [facility] When Why: Please call rianna for follow-up appointment in 4-6 weeks (re: diabetes), can schedule at [place] office. Bring blood glucose meter with you to your appointment. Where: [address], [place] [address] [phone] Follow Up with [facility] When Within 1-2 days Why: Please call to arrange a hospital follow-up and possible trial void. Where: [address] [place] [address]- [phone] Follow Up with HARISH NOEL MD When Within 1-2 days Why: Please call to arrange a hospital follow-up. Where: [address] [place] [address] [phone] Follow Up with free When Why: Follow up with primary care to have a Sleep Study ordered Where: Follow Up with Cardiac Rehab When Why: The Cardiac Rehab department will call you in 6 weeks to schedule you for phase 2. Informationgiven about cardiac rehab. If you have any questions please call [phone]. Where: [address] [facility] [place] [address]- The Following Activity and Diet Have Been [...] to: POLLY PHILIPPE MD, Please present to [place] [facility] department 1 hour prior to office [...] for every person. A diet and nutrition aides teacher (registered dietitian) can help you make a [...] 15 g of carbohydrates: hamburger bun or Bolivian muffin. oz (15 mL) syrup. oz (14 [...] Identify the foods that contain carbohydrates: Rice. [place]. Milk. Strawberries. 2. Calculate how many servings [...] manage your diabetes. A diet and nutrition aides teacher (registered dietitian) can help you make a meal plan and calculate how many carbohydrates you should have at each meal and snack. This information is not intended to replace advice given to you by your health care provider. Make sure you discuss any questions you have with your health care provider. Document Released: 03/04/2006 Document Revised: 09/26/2017 Document Reviewed: 08/15/2016 [employer] Patient Education 2020 [employer] OPEN HEART SURGERY (Bypass or Valve [...] diet and you may take a mild wfni-blz-ijofyrd laxative like Milk of Magnesia . CARDIAC [...] call your surgeon or your heart doctor. [place] also has a free stop smoking program called Give it Up and if you want to attend, pleasecall [phone] ([phone]). Call the Surgeon If your incisions are [...] in your calf. Call the Heart Doctor (Drawer Maker) If your heart beats are irregular or [...] to receive it can visit one of [facility] vaccine clinics. There are many vaccine clinic locations within the [facility]. For locations and available times, please visit https://gettheshot.coronavirus.[place].gov/. It is important to note that some COVID mobile vaccine clinics are held outdoors and may be canceled in rainy or stormy conditions. To learn more about pediatric vaccinations (ages 5-11), we invite you to visit the [facility] webpage. https://www.[facility].org/pages/0237-Lyrsh-Egpfjswxzrs-Ognzgmqnxc-Puieh-Wra stions.htmlTo learn more about the COVID-19 vaccine, we invite you to visit the [facility] website for a list of frequently asked questions. [email or web address]/[email or web address]-yob-[email or web address]/tjwqr-Olboosn-Nhjkvbpprj _Asked-Questions.pdf [facility] Patient Portal Access Instructions: Stay connected with your healthcare team and access your personal medical information anytime with the [facility] Patient Portal.If you would like a full copy of your medical records, please contact the [facility] Medical Records Department, Saturday through Saturday between 8a.m. and 4:30p.m. Please follow the directions below to access the portal: 1.Access the email account you provided upon registration to the hospital.2.Look for an invitation email from [facility].3.Open the email and access the invitation link: Accept Invitation to [facility]4.Fill in the required singer to create your account. Sign into www.SEE Forge with your username and password that you [...] will allow to register on the [facility] Patient Portal for access to your information. You can also access the [facility] Patient Portal on the [employer]. Simply click on Health Records under Clutter and then click on the [facility] logo. HOW TO SAFELY DISPOSE OF PRESCRIPTION [...] Call your local pharmacy or go to http://bit.ly/8W0Kf1q to find one close to you.3.Make use of household items: Use cat litter or old coffee grounds to dispose medications if other options arenot available. Mix your drugs with these household products, seal them in an airtight container andthrow it into the garbage. Call [facility]: [phone] to be sure your drugs can be [...] am aware that I should contactmy doctor. 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 Patient tolerated well. Patient instructed to remain bedrest for 1 hour. Digitally Signed by NAT DUNN APRN-PARTS AND SERVICE MANAGER on 11/29/2021 08:44 AM [facility] [id number] Note ORIGINAL EXAMINATION: TWO XRAY VIEWS OF [...] resident's findings and interpretation. Interpreted by: Antwan Fountani Preliminary Report By: Akua Bejarano Electronically signed By Antwan Fountain Dictated Date: 11/29/2021 8:05:15 AM Prelim Date: 11/29/2021 8:10:22 AM Sign Date: 11/30/2021 12:35:45 AM Ordering Provider: NAT ABEBEGalion [id number] Nurse Progress note Student's documentation was reviewed and all medications were verified prior to administration. Digitally Signed by Windy Jaimes RN on 11/28/2021 06:34 PM [facility] [id number] Note Date of Service 11/28/2021 Chief Complaint POD #5 This is a 71-year-old female with past medical history of CAD status post PCI in 2016, hypothyroidism, hypertension, hyperlipidemia, irritable bowel syndrome, diabetes, history of DVT, history of tobacco use (quit 6 years ago), history of GI bleeds requiring blood transfusions, and obesity. She hada cardiac catheterization completed with her or manager, Dr. Jewell in [place] which revealed an EF of 55% with [...] nebs. nitroprusside drip has been weaned off. [facility] consulted for diabetic management. PT/OT consulted. [...] obtain urinalysis and urine culture, and consult [facility]. WBC 20.3 this morning. Discontinue A-line. Keep in ICU. Postop day [facility]. [facility] Aggressive pulmonary toilet. Wean O2. Voiding trial [...] greater than 200 cc. Likely discharge to [facility] tomorrow. Subjective Patient resting comfortably in [...] access: Left subclavian triple-lumen Disposition: [place] [facility] [place] Weight Current Weight Dosing Weight: 102.3 kg [...] 11/26/21 20:59:00 EDT Assessment/Plan 1. CAD IN NAN[place]ALEK ARTERY s/p PCI 2016; s/p CABG x2 [...] Diabetes mellitus Hgb A1c 9.7% Followed by [facility]. Glucoses ranging 172-240. On Humalog sliding [...] negative. 15. Postoperative urinary retention Followed by [facility]. Urine culture negative. Plan to remove [...] many are missed. [1] Progress Note; KAELYN DREWBLACK LEATHER TRIMMER 11/27/2021 08:52 EDT Digitally Signed by NAT DUNN on 11/28/2021 10:23 AM [facility] [id number] Endocrinology Progress note Date of Service 11/28/2021 [...] Glucose, Capillary 11/28/2021 11:53:00 EDT 202 mg/dL OR 82-115 Glucose Testing Blood Glucose, Capillary 11/28/2021 07:15:00 EDT 205 mg/dL HI 82-115 Glucose Testing Blood Glucose, Capillary 11/27/2021 21:05:00 EDT 172 mg/dL HI 82-115 Glucose Testing Blood Glucose, Capillary 11/27/2021 16:40:00 EDT 240 mg/dL HI 82-115 Y Glucose Testing Blood Glucose, Capillary 11/27/2021 11:19:00 EDT 168 mg/dL OR 82-115 Glucose Testing Blood Glucose, Capillary 11/27/2021 07:17:00 EDT 166 mg/dL OR 82-115 EKG No qualifying data available. Assessment/Plan 1. CAD IN NANWALEK ARTERY s/p PCI 2015; s/p CABG x2 [...] had a cardiac catheterization completed with her or manager, Dr. Jewell in [place] which revealed an EF of 55% with [...] by DIVINA DOSS on 11/28/2021 01:30 PM [facility] [id number] Nurse Progress note Patient refused morning potassium, education provided on why patient was prescribed this supplement, patient stated she couldn't take any more pills this morning. Patient stated she wanted to sign herself out, did not want to go to an extended care facility for therapy. More education provided. Digitally Signed by Ina Dukes RN on 11/28/2021 12:16 PM [facility] [id number] Note Date of Service 11/28/2021 Chief Complaint POD #5 This is a 71-year-old female with past medical history of CAD status post PCI in 2016, hypothyroidism, hypertension, hyperlipidemia, irritable bowel syndrome, diabetes, history of DVT, history of tobacco use (quit 6 years ago), history of GI bleeds requiring blood transfusions, and obesity. She hada cardiac catheterization completed with her or manager, Dr. Jewell in [place] which revealed an EF of 55% with [...] nebs. nitroprusside drip has been weaned off. [place] [facility] consulted for diabetic management. PT/OT consulted. [...] obtain urinalysis and urine culture, and consult [facility] [facility]. WBC 20.3 this morning. Discontinue A-line. Keep in ICU. Postop day #4. [facility] Aggressive pulmonary toilet. Wean O2. Voiding trial [...] greater than 200 cc. Likely discharge to [facility] tomorrow. Subjective Patient resting comfortably in [...] access: Left subclavian triple-lumen Disposition: [facility] [place] Weight Current Weight Dosing Weight: 102.3 kg [...] 11/26/21 20:59:00 EDT Assessment/Plan 1. CAD IN NAN[place]K ARTERY s/p PCI 2016; s/p CABG x2 [...] are missed. [1] Progress Note; KAELYN DREW APRN-BLACK LEATHER TRIMMER 11/27/2021 08:52 EDT Digitally Signed by NAT DUNN on 11/28/2021 10:23 AM [facility] [id number] Note. MICRO - Microbiology PROCEDURE: Urine Culture [...] Locations *1: This test was performed at: [address], [facility] , [facility] ([place])11-28-2021 Note ORIGINAL EXAMINATION: TWO XRAY VIEWS OF [...] Sign Date: 11/28/2021 8:13:29 AM Ordering Provider: [facility]09-13-2022 Note ORIGINAL EXAMINATION: TWO XRAY VIEWS [...] 11/28/2021 8:13:29 AM Ordering Provider: [facility]09-12-2022 Endocrinology Progress note Date of Service 11/27/2021 [...] Glucose, Capillary 11/27/2021 16:40:00 EDT 240 mg/dL OR 82-115 Y Glucose Testing Blood Glucose, Capillary 11/27/2021 11:19:00 EDT 168 mg/dL HI 82-115 Glucose Testing Blood Glucose, Capillary 11/27/2021 07:17:00 EDT 166 mg/dL HI 82-115 Glucose Testing Blood Glucose, Capillary 11/26/2021 23:04:00 EDT 137 mg/dL OR 82-115 Glucose Testing Blood Glucose, Capillary 11/26/2021 20:38:00 EDT 142 mg/dL OR 82-115 Glucose Testing Blood Glucose, Capillary 11/26/2021 16:40:00 EDT 161 mg/dL OR 82-115 Glucose Testing Blood Glucose, Capillary 11/26/2021 11:24:00 EDT 243 mg/dL OR 82-115 Glucose Testing Blood Glucose, Capillary 11/26/2021 07:35:00 EDT 165 mg/dL OR 82-115 EKG EKG - Completed -- 11/26/21 20:59:00 EDT Electrocardiogram - [facility]Process -- 11/27/21 6:00:00 EDT, On the 4th post op day Assessment/Plan 1. CAD IN [place] ARTERY s/p PCI 2015; s/p CABG x2 [...] had a cardiac catheterization completed with her or manager, Dr. Jewell in [place] which revealed an EF of 55% with [...] by DIVINA DOSS on 11/27/2021 10:48 PM [facility] [id number] Note Date of Service 11/27/2021 postop day #4 Chief Complaint This is a 71-year-old female with past medical history of CAD status post PCI in 2016, hypothyroidism, hypertension, hyperlipidemia, irritable bowel syndrome, diabetes, history of DVT, history of tobacco use (quit 6 years ago), history of GI bleeds requiring blood transfusions, and obesity. She hada cardiac catheterization completed with her or manager, Dr. Jewell in [place] which revealed an EF of 55% with [...] nebs. nitroprusside drip has been weaned off. [place] [facility] consulted for diabetic management. PT/OT consulted. [...] obtain urinalysis and urine culture, and consult [facility] [facility]. WBC 20.3 this morning. Discontinue A-line. [...] inflammatory process. [1] Assessment/Plan 1. CAD IN NAN[place]ALEK ARTERY s/p PCI 2016; s/p CABG x2 [...] by KAELYN DREW on 11/27/2021 09:00 AM [facility] [id number] Note ORIGINAL EXAMINATION: TWO XRAY VIEWS OF [...] 11/27/2021 7:51:49 AM Ordering Provider: NAT DUNN [facility] [id number] Note ORIGINAL EXAMINATION: TWO XRAY VIEWS OF [...] Sign Date: 11/27/2021 7:51:49 AM Ordering Provider: [facility]09-11-2022 Nurse Progress note Patient had increased SOB and chest pain around 2100. EKG obtained showing SR with RBBB, unchanged from prior. Dr. Kohler notified or patient status, orders obtained from CXR and ABG. Results discussedwith Dr. Kohler, order for patient to go on bipap and recheck ABG in 1 hour. Patient placed on bipap-frequently dedicated regional driver-light, requesting to come off. Patient thoroughly educated [...] Avis Peters RN on 11/26/2021 10:49 PM [facility] [id number] Note ORIGINAL EXAMINATION: ONE XRAY VIEW OF [...] Sign Date: 11/26/2021 9:26:00 PM Ordering Provider: [facility]09-11-2022 Note ORIGINAL EXAMINATION: ONE XRAY VIEW OF [...] Sign Date: 11/26/2021 9:26:00 PM Ordering Provider: [facility]09-11-2022 Endocrinology Progress note Date of Service [...] qualifying data available. Assessment/Plan 1. CAD IN N[place]K ARTERY s/p PCI 2015; s/p CABG x2 [...] She hada cardiac catheterization completed with her or manager, Dr. Jewell in [place] which revealed an EF of 55% with [...] A1c goals, glycemic targets. Would benefit from greenhouse instructor and automobile repossessor evaluation. Appreciate their input. She is morbidly [...] by CRYSTAL PRESSLEY on 11/26/2021 04:48 PM [facility] [id number] Urology Consult note Date of Service 11/26/21 Reason for Consultation Urinary retention Referring Physician Dr. Kohler History of Present Illness s/p 2v CABG by Dr. Philippe on 11/23/21. [place] was removed postop. Patient was voiding freely. She complained of dysuria. UA was negative for UTI. RYT=879 cc. [place] catheter was inserted. Patient has [...] (2) No ventral hernias. Musculoskeletal: (1) Normal chief environmental commitment officer strength and tone bilaterally. Neurologic: (1) Grossly [...] Negative. (11/26/21 07:27:00) Assessment/Plan 1. CAD IN [place] ARTERY s/p PCI 2016; s/p CABG x2 [...] List/Past Medical History Ongoing Bronchitis CAD IN [place] ARTERY CARDIOGENIC SHOCK CHEST PAIN IN ADULT [...] mg= 1 tab(s), Oral, qDayAC Sore Throat [place], 1 spray(s), Topical, q1h, PRN Surfak Stool [...] SAQIB FRASER MD on 11/26/2021 11:01 AM [id number] Pulmonary Progress note Date of Service 11/26/2021 Chief Complaint 71-year-old female with past medical history of CAD status post PCI in 2016, hypothyroidism, hypertension, hyperlipidemia, irritable bowel syndrome, diabetes, history of DVT, history of tobacco use (quit 6 years ago), history of GI bleeds requiring blood transfusions, and obesity. She had a cardiac catheterization completed with her or manager, Dr. Jewell in [place] which revealed an EF of 55% with [...] qualifying data available. Assessment/Plan 1. CAD IN [place] s/p PCI 2015; s/p CABG x2 [...] DOLORES CARRILLO MD on 11/26/2021 10:48 AM [id number] Nurse Progress note Patient refusing to sit in chair for meals and refusing to ambulate per physician orders, despite education of expectations and complications from failure to do these. Digitally Signed by LARS Lopez on 11/26/2021 08:08 AM [facility] [id number] Note Date of Service 11/26/2021 Chief Complaint POD #3 This is a 71-year-old female with past medical history of CAD status post PCI in 2016, hypothyroidism, hypertension, hyperlipidemia, irritable bowel syndrome, diabetes, history of DVT, history of tobacco use (quit 6 years ago), history of GI bleeds requiring blood transfusions, and obesity. She hada cardiac catheterization completed with her or manager, Dr. Jewell in [place] which revealed an EF of 55% with [...] nebs. nitroprusside drip has been weaned off. [place] [facility] consulted for diabetic management. Currently on [...] obtain urinalysis and urine culture, and consult [place] [facility]. WBC 20.3 this morning. Chest x-ray [...] qualifying data available. Assessment/Plan 1. CAD IN [place] s/p PCI 2015; s/p CABG x2 11/23/21, EF55% Normal sinus rhythm. Heart rate ranging 84-88. Blood pressures ranging 127/66- 147/65. No aspirin orstatin secondary to allergies. On carvedilol. Weight down 1.5 kg since yesterday. On Bumex/KCl. 2. Acute blood loss anemia H&H 10.3 and 31.7. 3. Diabetes mellitus Hgb A1c 9.7% Followed by [place] [facility]. Glucoses ranging 94-209. On Humalog [...] by NAT DUNN on 11/26/2021 10:49 AM [facility] [id number] Note ORIGINAL EXAMINATION: ONE XRAY VIEW OF [...] 11/26/2021 6:50:40 AM Ordering Provider: NAT DUNN [facility] [id number] Note ORIGINAL EXAMINATION: ONE XRAY VIEW OF [...] Date: 11/26/2021 6:50:40 AM Ordering Provider: NAT [facility]09-10-2022 Endocrinology Progress note Date of Service 11/25/21 [...] qualifying data available. Assessment/Plan 1. CAD IN [place] s/p PCI 2016; s/p CABG x2 [...] She hada cardiac catheterization completed with her or manager, Dr. Jewell in [place] which revealed an EF of 55% with [...] A1c goals, glycemic targets. Would benefit from greenhouse instructor and automobile repossessor evaluation. Appreciate their input. She is morbidly [...] by CRYSTAL PRESSLEY on 11/25/2021 05:28 PM [facility] [id number] Pulmonary Progress note Date of Service 11/25/2021 Chief Complaint 71-year-old female with past medical history of CAD status post PCI in 2016, hypothyroidism, hypertension, hyperlipidemia, irritable bowel syndrome, diabetes, history of DVT, history of tobacco use (quit 6 years ago), history of GI bleeds requiring blood transfusions, and obesity. She had a cardiac catheterization completed with her or manager, Dr. Jewell in [place] which revealed an EF of 55% with [...] qualifying data available. Assessment/Plan 1. CAD IN [place] s/p PCI 2015; s/p CABG x2 [...] DOLORES CARRILLO MD on 11/25/2021 10:42 AM [facility] [id number] Note Date of Service 11/25/2021 Chief Complaint POD #2: This is a 71-year-old female with past medical history of CAD status post PCI in 2016, hypothyroidism, hypertension, hyperlipidemia, irritable bowel syndrome, diabetes, history of DVT, history of tobacco use (quit 6 years ago), history of GI bleeds requiring blood transfusions, and obesity. She hada cardiac catheterization completed with her or manager, Dr. Jewell in [place] which revealed an EF of 55% with [...] nebs. nitroprusside drip has been weaned off. [place] [facility] consulted for diabetic management. Currently on [...] murmur, positive pericardial friction rub, heart rate -08, temporary a and V pacer wires intact; [...] post op day Assessment/Plan 1. CAD IN [place] s/p PCI 2015; s/p CABG x2 [...] Diabetes mellitus Hgb A1c 9.7% Followed by [place] [facility]. Glucoses ranging 67-154. No longer [...] by NAT DUNN on 11/25/2021 10:54 AM [facility] [id number] Note ORIGINAL EXAMINATION: ONE XRAY VIEW OF [...] 11/25/2021 6:55:32 AM Ordering Provider: [facility]09-10-2022 Note ORIGINAL EXAMINATION: ONE XRAY VIEW [...] Sign Date: 11/25/2021 6:55:32 AM Ordering Provider: [facility]09-09-2022 Note ORIGINAL EXAMINATION: ONE XRAY VIEW [...] 11/24/2021 10:21:41 PM Ordering Provider: POLLY PHILIPPE [facility] [id number] Note Result type: Cardiothoracic Surgery Office Note Result date: November 21, 2021 14:15 EDT Result status: Auth (Verified) Result title: Office Visit Note Performed by: POLLY PHILIPPE MD on November 21, 2021 14:15 EDT Verified by: POLLY PHILIPPE MD on November 21, 2021 14:15 EDT Encounter info: [id number], [facility], Office, 11/21/2021 - 11/21/2021 Chief Complaint [...] List/Past Medical History Ongoing Bronchitis CAD IN [place] CARDIOGENIC SHOCK CHEST PAIN IN ADULT [...] by CAROLINE Willingham on 11/24/2021 02:06 PM [facility] [id number] Endocrinology Consult note Date of Service 11/24/21 [...] She hada cardiac catheterization completed with her or manager, Dr. Jewell in [place] which revealed an EF of 55% with [...] 103 mg/dL 82-115 Assessment/Plan 1. CAD IN [place] s/p PCI 2015; s/p CABG x2 [...] She hada cardiac catheterization completed with her or manager, Dr. Jewell in [place] which revealed an EF of 55% with [...] A1c goals, glycemic targets. Would benefit from greenhouse instructor and automobile repossessor evaluation. Appreciate their input. She is morbidly [...] List/Past Medical History Ongoing Bronchitis CAD IN [place] CARDIOGENIC SHOCK CHEST PAIN IN ADULT [...] mg= 1 tab(s), Oral, qDayAC Sore Throat [place], 1 spray(s), Topical, q1h, PRN Surfak Stool [...] by CRYSTAL PRESSLEY on 11/24/2021 03:52 PM [facility] [id number] Pulmonary Consult note Date of Service 11/24/2021 History of Present Illness 71-year-old female with past medical history of CAD status post PCI in 2015, hypothyroidism, hypertension, hyperlipidemia, irritable bowel syndrome, diabetes, history of DVT, history of tobacco use (quit 6 years ago), history of GI bleeds requiring blood transfusions, and obesity. She had a cardiac catheterization completed with her or manager, Dr. Jewell in [place] which revealed an EF of 55% with [...] left basilar consolidation. Assessment/Plan 1. CAD IN [place] s/p PCI 2015; s/p CABG x2 [...] List/Past Medical History Ongoing Bronchitis CAD IN [place] CARDIOGENIC SHOCK CHEST PAIN IN ADULT [...] mg= 1 tab(s), Oral, qDayAC Sore Throat [place], 1 spray(s), Topical, q1h, PRN Surfak Stool [...] CHRIS FRY MD on 11/24/2021 11:15 AM [facility] [id number] Note Date of Service 11/24/2021 Chief Complaint POD #1 This is a 71-year-old female with past medical history of CAD status post PCI in 2016, hypothyroidism, hypertension, hyperlipidemia, irritable bowel syndrome, diabetes, history of DVT, history of tobacco use (quit 6 years ago), history of GI bleeds requiring blood transfusions, and obesity. She hada cardiac catheterization completed with her or manager, Dr. Jewell in [place] which revealed an EF of 55% with [...] pulmonary. nitroprusside drip has been weaned off. [place] [facility] consulted for diabetic management. Currently on [...] qualifying data available. Assessment/Plan 1. CAD IN [place] s/p PCI 2016; s/p CABG x2 [...] insulin drip at 2 units/h. Will consult [place] [facility]. 4. High blood pressure Blood [...] to 40% FiO2. Consult pulmonary Plan: Consult [place] [facility] for diabetic management Consult PT [...] by NAT DUNN on 11/24/2021 08:20 AM [facility] [id number] Note ORIGINAL EXAMINATION: ONE XRAY VIEW OF [...] Sign Date: 11/24/2021 10:21:41 PM Ordering Provider: [facility]09-08-2022 Note ORIGINAL EXAMINATION: ONE XRAY [...] 11/23/2021 1:40:56 PM Ordering Provider: [facility]09-08-2022 Note ORIGINAL EXAMINATION: ONE XRAY VIEW OF [...] Sign Date: 11/23/2021 1:40:56 PM Ordering Provider: [facility]09-08-2022 Anesthesiology Consult note Patient: FELICITAS [...] 15 mL, 3 Refill(s), Pharmacy: [facility] [address], 157.2, cm, 01/21/20 14:13:00EST, Height, kg, 01/21/20 14:13:00 EST, Dosing Weight nitroglycerin 0.4 mg sublingual tablet: 0.4 mg Dose = 1 tab(s), Sublingual, q5min, PRN as needed for chest pain, # 25 tab(s), 3 Refill(s), Pharmacy: [facility] [address], 157.5, cm, 08/31/19 16:27:00 EDT, Height, [...] (deep vein thrombosis) in / SNOMED CT 09747537 / Confirmed Bronchitis / SNOMED CT 96518655 / Confirmed CARDIOGENIC SHOCK / SNOMED CT 227141786 / Confirmed CHEST PAIN IN ADULT / SNOMED CT 42143080 / Confirmed CKD stage 3 / SNOMED CT 1754825447 / Confirmed CONGESTIVE HEART FAILURE, UNSPECIFIED CONGESTIVE HEART FAILURE CHRONICITY, UNSPECIFIED CONGESTIVE HEART FAILURE TYPE / SNOMED CT 44696089 / Confirmed Coronary artery disease / SNOMED CT 6228829176 / Confirmed CAD IN [place] / SNOMED CT 4967664438 / Confirmed Diabetes mellitus / SNOMED CT 783706969 / Confirmed Dysphagia / SNOMED CT 83577909 / Confirmed FATIGUE / SNOMED CT 791410636 / Confirmed Heart attack / SNOMED CT 17076617 / Confirmed High blood pressure / SNOMED CT 66131654 / Confirmed HISTORY OF ST ELEVATION MYOCARDIAL INFARCTION (STEMI) / SNOMED CT 4561139693 / Confirmed H/O irritable bowel syndrome / SNOMED CT 9051953566 / Confirmed Former tobacco use / SNOMED CT 4333589772 / Confirmed Hyperlipemia / SNOMED CT 79097358 / Confirmed Hypertension / SNOMED CT 29941803 / Confirmed Hypothyroid / SNOMED CT 642710248 / Confirmed IBS (irritable bowel syndrome) / SNOMED CT 98868999 / Confirmed Non-compliance / SNOMED CT 1500398075 / Confirmed OBESITY / SNOMED CT 6823652434 / Confirmed Perforated ulcer / SNOMED CT 058564563 / Confirmed Polyneuropathy / SNOMED CT 97487719 / Confirmed Type 2 diabetes mellitus uncontrolled / SNOMED CT 6410776386 / Confirmed Urinary tract infection / SNOMED CT 096338304 / Confirmed VITAMIN D DEFICIENCY / SNOMED CT 00908464 / Confirmed, Active Problems (33) Bronchitis CAD IN [place] CARDIOGENIC SHOCK CHEST PAIN IN ADULT [...] Histories Past Medical History: Active Perforated ulcer (105990169) DVT (deep vein thrombosis) in (82830836) High blood pressure (76341144) Bronchitis (30187660) Diabetes mellitus (462208939) Urinary tract infection (358921376) Coronary artery disease (0662566451) Former tobacco use (3236089588) Comments: 04/09/2016 EST 19:51 Summer Reddy RN quit 12/2015 Family History: Cardiac pacemaker Brother COPD - Chronic obstructive pulmonary disease Sister Diabetes mellitus Sister Heart disease Brother Stroke Father ([place]) Heart attack Mother ([place]) Cancer Sister Aneurysm Father ([place]) Heart attack 14-Sep-2015 02:33:12<$> Mother ([place]) Brother Procedure history: CABG (Coronary artery bypass grafting) planned (2444900873) on 11/23/2021 at 71 Years. Cardiac catheterization (32114336) on 09/05/2021 at 70 Years. Cardiac catheterisation (600147944) on 04/10/2016 at 65 Years. Comments: 04/10/2016 5:58 LARS Rodrigeuz D possible PTCA Stent placement (871715903) on 01/03/2016 at 65 Years. History of hysterectomy ([id number]). Hysterectomy (721661495). H/O: tubal ligation (279342146). Histology tonsillectomy (798904049). Colonoscopy (215976729). EGD - Esophagogastroduodenoscopy (4236612190). Social History Social & Psychosocial Habits Alcohol [...] Person #2 We May Share PHI Katherine [phone] Designated Person #2 Relationship Other: sister Additional Designated Person Share PHI Kathya- daughter Privacy Restrictions Requested None Height 157.5 cm Admission Weight 102.3 kg Weight Method Actual [place] Body Weight 50.12 kg Body Mass Index [...] Loss No Safety Brochure Information Reviewed Yes [facility] Video Viewed No Barriers to Learning None evident Teaching Method Printed materials Teaching Evaluation Verbalizes/Nonverbally indicates understanding Preferred Written Language Bol[place]ian Preferred Spoken Language Bol[place]ian Information Given by Patient Patient's Current Physicians [...] Ready for Pickup . Assessment and Plan [place] [employer] Anesthesiologists (ASA) physical status classification: [...] JOHNATHON TANNER DO on 11/23/2021 08:39 AM [facility] [id number] SARS-CoV-2 (COVID-19) RNA SLOAN+probe Ql (Nph)Negative (11/17/21 12:00 PM)AO Auto Urine [id number] Evaluation note* Diagnosis Onset Date Resolution Status History of coronary artery bypass surgery November, acute Essential hypertension chron ic Hyperlipemia chronic Hypothyroidism chronic IBS (irritable bowel syndrome) chronic Type 2 diabetes mellitus chr onic History of coronary artery bypass surgery November, acute Atherosclerotic heart diseas e of [place] coronary artery without angina pectoris chronic Dyspnea on exertion chronic Essential hypertension chron ic Hyperlipemia chronic Presence of stent in coronary artery March, [facility] Work Phone: 1(409) 692-124901-01-2017 Evaluation note* Diagnosis Onset Date Resolution Status History of non-ST elevation myocardial infarction (NSTEMI) acute Essential hypertension chron ic Hyperlipemia chronic Hypothyroidism chronic Presence of stent in coronary artery March, chronic Type [address] [facility] Work Phone: 1(288) 781-562401-01-2017 Evaluation note* Diagnosis Onset Date Resolution Status History of non-ST elevation myocardial infarction (NSTEMI) acute Essential hypertension chron ic Hyperlipemia chronic Hypothyroidism chronic Presence of stent in coronary artery March, chronic Type 2 diabetes mellitus chr onic Dyspnea on exertion acute Atherosclerotic heart diseas e of [place] coronary artery without angina pectoris chronic Essential hypertension chron ic Hyperlipemia chronic Presence of stent in coronary artery March, [facility] Work Phone: 1(511) 441-245401-01-2017 Evaluation note* Diagnosis Onset Date Resolution Status History of non-ST elevation myocardial infarction (NSTEMI) acute Essential hypertension chron ic Hyperlipemia chronic Hypothyroidism chronic Presence of stent in coronary artery March, chronic Type 2 diabetes mellitus chr onic Atherosclerotic heart diseas e of [place] coronary artery without angina pectoris chronic Dyspnea on exertion chronic Essential hypertension chron ic Hyperlipemia chronic Presence of stent in coronary artery March, chronic Atherosclerotic heart diseas e of [place] coronary artery without angina pectoris chronic Dyspnea on exertion chronic Essential hypertension chron ic Hyperlipemia chronic Presence of stent in coronary artery March, [facility] Work Phone: Evaluation + Plan note Future Appointments Appointment Date:11/21/2021 02:00:00 PM Scheduled Provider:POLLY PHILIPPE MD Location:[facility] Appointment Type:[facility] Evaluation + Plan note Future Appointments Appointment Date:12/05/2021 10:00:00 AM Scheduled Provider:JUAN JUAREZ Location:[facility] Appointment Type:[facility] Post Op [facility] Evaluation + Plan note Future Appointments Appointment Date:12/27/2021 01:00:00 PM Scheduled Provider:JUAN JUAREZ Location:[facility] [place] Appointment Type:[facility] OV Post Op Follow Up Future Scheduled Tests Laboratory* Basic Metabolic Panel 12/01/21 Radiology* XR Chest 2 Views (PA & Lateral) 12/27/21 * XR Chest 2 Views (PA & Lateral) 12/19/21 [facility] Evaluation note* Diagnosis Onset Date Resolution Status Atherosclerotic heart diseas e of [place] coronary artery without angina pectoris chronic Dyspnea on exertion chronic Essential hypertension chron ic Hyperlipemia chronic Presence of stent in coronary artery March, chronic [facility] Work Phone: Evaluation note* Diagnosis Onset Date Resolution Status Atherosclerotic heart diseas e of [place] coronary artery without angina pectoris chronic Dyspnea on exertion chronic Essential hypertension chron ic Hyperlipemia chronic History of coronary artery bypass surgery November, 022 acute Atherosclerotic heart diseas e of [place] coronary artery without angina pectoris chronic Essential hypertension chron ic Hyperlipemia chronic Hypothyroidism chronic IBS (irritable bowel syndrome) chronic Presence of stent in coronary artery March, chronic Type 2 diabetes mellitus chr onic [facility] Work Phone: History and physical note* CAROLINE Chandler: PERFORM, MODIFY Event Display: History and Physical Update Authored Date: [facility] course Narrative No data available for this section [facility] Discharge instructions No data available for this section [facility] Discharge instructions Additional Instructions Apply cream as prescribed and return for any worsening of symptoms.[facility] Work Phone: Progress note No data available for this section [facility] Summary Purpose Family History [...] Will No April 25 12:33pm Power of Clothing Designer No April 25, 2021 12:33pm Advance Directive Response Recorded Date/ Time Advance Directives No September 05 7:52am Living Will No September 05, 2021 7:52am Power of Clothing Designer No September 05 7:52am Advance Directive Response Recorded Date/ Time Advance Directives No September 05 7:52am Living Will No September 08, 2021 12:28pm Power of Clothing Designer No September 08 12:28pm Advance Directive Response Recorded Date/ Time Advance Directives No September 05 7:52am Living Will No November 05 2:17am Power of Clothing Designer No November 05 022 2:17am Advance Directive Response Recorded Date/ Time Advance Directives No September 05 6:52am Living Will No January 21 3:59pm Power of Clothing Designer No January 21, 2022 3:59pm Advance Directive Response Recorded Date/ Time Advance Directives No September 05 7:52am Living Will No January 21 4:59pm Power of Clothing Designer No January 21, 2022 4:59pm Advance Directive Response Recorded Date/ Time Advance Directives No September 05 7:52am Living Will No July 28, 2022 1 :12pm Power of Clothing Designer No July 28, 2022 1:12pm Advance Directive Response Recorded Date/ Time Living Will No January 14 1:05pm Do you have a Healthcare Power of Clothing Designer? No January 15, 2024 1:05pm Living Will No April 29, 2 025 10:02pm Do you have a Healthcare Power of Clothing Designer? No April 29, 2024 10:02pm Advance Directives [...] Dyspnea on exertion Atherosclerotic heart disease of [place] coronary artery without angina pectoris Essential hypertension [...] Dyspnea on exertion Atherosclerotic heart disease of [place] coronary artery without angina pectoris Essential hypertension [...] 2 diabetes mellitus Atherosclerotic heart disease of [place] coronary artery without angina pectoris Dyspnea on exertion Essential hypertension Hyperlipemia Presence of stent in coronary artery Atherosclerotic heart disease of [place] coronary artery without angina pectoris Dyspnea on [...] 2 diabetes mellitus Atherosclerotic heart disease of [place] coronary artery without angina pectoris Dyspnea on exertion Essential hypertension Hyperlipemia Presence of stent in coronary artery Atherosclerotic heart disease of [place] coronary artery without angina pectoris Dyspnea on exertion Essential hypertension Hyperlipemia Presence of stent in coronary artery Chief Complaint SOB, HX OF CAD *MOOD ISPAW* SOB, HX OF CAD *MOODISPAW* DYSPNEA DYSPNEA Update H&P for cath 09/05 [facility] CORONA/ ABN STRESS CORONA/ ABN STRESS headache, chills CHEST PAIN Reason for Visit Atherosclerotic hear t disease of [place] coronary artery without angina pectoris Dyspnea on [...] artery bypass surgery Atherosclerotic heart disease of [place] coronary artery without angina pectoris Dyspnea on [...] artery bypass surgery Atherosclerotic heart disease of [place] coronary artery without angina pectoris Dyspnea on exertion Essential hypertension Hyperlipemia Presence of stent in coronary artery Chief Complaint 3 M FU 4 M FU Reason for Visit Atherosclerotic hear t disease of [place] coronary artery without angina pectoris Dyspnea on exertion Essential hypertension Hyperlipemia History of coronary artery bypass surgery Atherosclerotic heart disease of [place] coronary artery without angina pectoris Essential hypertension Hyperlipemia Hypothyroidism IBS (irritable bowel syndrome) Presence of stent in coronary artery Type 2 diabetes mellitus Chief Complaint 3 M FU 4 M FU HEADACHE, RASH Reason for Visit Atherosclerotic hear t disease of [place] coronary artery without angina pectoris Dyspnea on exertion Essential hypertension Hyperlipemia History of coronary artery bypass surgery Atherosclerotic heart disease of [place] coronary artery without angina pectoris Essential hypertension [...] 12: 52pm Atherosclerotic heart diseas e of [place] coronary artery without angina pectoris July 02, 2024 12:52pm Essential hypertension July 02, 2024 12:52pm Hyperlipemia July 02, 2024 12: 52pm Hypothyroidism July 02, 2024 12: 52pm Type 2 diabetes mellitus July 02 12:52pm Chest pain July 02, 2024 12: 52pm Additional Source Comments INFORMATION SOURCE (unrecogn ized section and content) DATE CREATED AUTHOR 09/11/2017 [employer] DATE CREATED AUTHOR AUTHOR'S ORGANIZ ATION 12/28/2021 [employer] ([place]) DATE CREATED AUTHOR AUTHOR'S [...] Physician - Cardiothoracic Surgery Address: Address: [address] [place] [address] [address] [facility] [place] [address]- [place] Name: HARISH NOEL MD Member Role: Primary Care Physician Address: Address: [address] [place] [address] [place] [address]- Name: FORREST JEWELL MD Address: Address: [address] [address]- Care Team Related Persons Name: KATHERINE HOFFMANN Name: TIARRA KATHYA Care Team Personnel Name: POLLY PHILIPPE MD Position: P4 Physician - Cardiothoracic Surgery Med Service: Active Provider Member Role: Cardiothoracic Surgeon Address: Address: [address] [place] [address] [facility] [address] [facility] [place] [id number]- [place] Name: HARISH NOEL MD Member Role: Primary Care Physician Address: Address: [address] [place] [address]- Name: FORREST JEWELL MD Member Role: Drawer Maker Address: Address: [address] [place] [id number]- Care Team Related Persons Name: CHRISTINE MOSS Name: KATHERINE HOFFMANN Name: TIARRA KATHYA Care Team Personnel Name: POLLY PHILIPPE MD Position: P4 Physician - Cardiothoracic Surgery Med Service: Active Provider Member Role: Cardiothoracic Surgeon Address: Address: [address] [place] [address] [address] [facility] [place] [id number]- Name: HARISH NOEL MD Member Role: Primary Care Physician Address: Address: [address] [place] [address]- Name: FORREST JEWELL MD Member Role: Drawer Maker Address: Address: [facility] [address] [place] [address]- [place] Care Team Related Persons Name: CHRISTINE MOSS Name: KATHERINE HOFFMANN Name: TIARRA KATHYA Care Team Personnel Name: POLLY PHILIPPE MD Position: P4 Physician - Cardiothoracic Surgery Med Service: Active Provider Member Role: Cardiothoracic Surgeon Address: Address: [address] [place] [address] [facility] [address] [facility] [place] [id number]- Name: HARISH NOEL MD Member Role: Primary Care Physician Address: Address: [address] [place] [address] [address] [place] [address]- Name: FORREST JEWELL MD Member Role: Drawer Maker Address: Address: [address] [facility] [address] [place] [address]- [place] Care Team Related Persons Name: CHRISTINE [...] Provider, Referri ng Provider Active Rustam Francois END LATHE OPERATOR, END LATHE OPERATOR-C Attending Provider Active Team Status: Inactive Member Role Status Dates Dr. Harish Noel MD Primary Care Provider Active Rustam Francois END LATHE OPERATOR, END LATHE OPERATOR-C Attending Provider, Referring Pro vider Active [...] BE BASED ON THE PRIMARY CLINICAL RECORDS. [facility] [employer] [facility]. provides no warranty or guarantee of the accuracy or completeness of information in this document.
--- NOTE | 2024-09-07 04:37 | EKG12_ITS ---
Test Reason : CP ADMIT Blood Pressure : */* mmHG Vent. Rate : 75 BPM Atrial Rate : 75 BPM P-R Int : 174 ms QRS Dur : 134 ms QT Int : 444 ms P-R-T Axes : 54 -4 50 degrees QTcB Int : 495 ms Normal sinus rhythm Right bundle branch block Abnormal ECG When compared with ECG of 07-Sep-2024 00:13, MANUAL COMPARISON REQUIRED DATA IS UNCONFIRMED Confirmed by AUDIE MCARTHUR, DOMINIC ([id number]), makeup editor CROW REYNA ([id number]) on 09/08/2024 6:36:37 AM Referred By: Confirmed By: DOMINIC BRONSON MD
--- NOTE | 2024-09-07 04:37 | EKG12_ITS ---
Test Reason : CP ADMIT Blood Pressure : */* mmHG Vent. Rate : 75 BPM Atrial Rate : 75 BPM P-R Int : 174 ms QRS Dur : 134 ms QT Int : 444 ms P-R-T Axes : 54 -4 50 degrees QTcB Int : 495 ms Normal sinus rhythm Right bundle branch block Abnormal ECG When compared with ECG of 07-Sep-2024 00:13, MANUAL COMPARISON REQUIRED DATA IS UNCONFIRMED Confirmed by AUDIE MCARTHUR, DOMINIC ([id number]), film or videotape editor CROW REYNA ([id number]) on 09/08/2024 6:36:37 AM Referred By: Confirmed By: DOMINIC BRONSON MD
[2024-09-07] MEDS: 0.9% Normal Saline (1000mL) 1,000 ML 70 ML IV (04:48)
[2024-09-07 04:53] LABS: Magnesium 1.9 mg/dL (1.5-2.2)
--- OUTSIDE RECORDS SUMMARY | 2024-09-07 04:54 | XMS RPT_ITS | CCD ---
Author Organization [facility] [employer] Care Team Providers Care Cable Ferry Operator Name Role Phone VON ABARCA Unavailable Unavailable SAADIA HERNANDEZ Unavailable Unavailable SAADIA HERNANDEZ Unavailable Unavailable Dr. Harish Noel Primary Care Provider Dr. Harish Noel Attending Provider [phone] Dr. Harish Noel Referring Provider Roof SAP BW BI DEVELOPER, SAP BW BI DEVELOPER-C Rustam Garza Attending Provider Roof SAP BW BI DEVELOPER, SAP BW BI DEVELOPER-C Rustam Garza Referring Provider Roof SAP BW BI DEVELOPER, SAP BW BI DEVELOPER-C Rustam Garza Other Provider 1([facility])[phone] Forrest Jewell Attending Provider Dr. Jose Cotton Attending Provider Dr. Forrest Jewell Referring Provider Dr. Forrest Jewell Other Provider 1([facility])[phone] Harish Noel Primary Care Provider Dr. Harish Noel Referring Provider 1([facility])[phone] Roof SAP BW BI DEVELOPER, SAP BW BI DEVELOPER-C Rustam Garza Attending Provider HARISH NOEL MD [...] POLLY PHILIPPE MD Attending Unavailable BERT DAY, [facility] Primary Care Unavailable JOSE MARTIN MCARTHUR, POLLY Suggs Admitting Unavailable JOSE MARTIN MCARTHUR, POLLY Suggs Consulting Unavailable GERARDO MCARTHUR, DOLORES Consulting Unavailable JASMYN MCARTHUR, NIHAD Consulting Unavailable SAMUEL MANRIQUEZ MD, CHRIS Consulting Unavailable KELLEE MCARTHUR, GAGE Consulting Unavailanish PHILIPPE MD, POLLY Suggs Attending Unavailable BERT MCARTHUR., [facility] Primary Care Unavailable Dr. Harish Noel Primary Care Provider Aminah Prado Attending Provider Unavailable Dr. Harish Noel Attending Provider [phone] Dr. Harish Noel Referring Provider [phone] Roof SAP BW BI DEVELOPER, SAP BW BI DEVELOPER-C Rustam Garza Attending Provider Jairo Vogel Attending Provider Unavailable Dr. Harish Noel Primary Care Provider Aminah Prado Attending Provider Unavailable Dr. Harish Noel Attending Provider [phone] Dr. Harish Noel Referring Provider [phone] Roof SAP BW BI DEVELOPER, SAP BW BI DEVELOPER-C Rustam Garza Attending Provider Jairo Vogel Attending Provider Unavailable Dr. Harish Noel Primary Care Provider Dr. Harish Noel Referring Provider [phone] Roof SAP BW BI DEVELOPER, SAP BW BI DEVELOPER-C Rustam Garza Attending Provider Dr. Harish Noel Attending Provider [phone] Dr. Harish Noel MD Primary Care Provider [phone] Dr. Sly Blanco DO Referring Provider Dr. Sly Blanco DO Emergency Provider Lomeli DO, Dr. Marquez Admit Provider Unavail able Dr. Polly Lomeli DO Other Provider Unavail able Dr. Nathan Torres DO Attending Provider Anthony MCARTHUR, Dr. Natarajan Attending Provider Dr. Polly Lomeli DO Referring Provider Unav ailable Dr. Nathan Torres DO Other Provider Bert MCARTHUR, Dr. Chin Attending Provider Bert MCARTHUR, Dr. Chin Referring Provider Bert, Harish Primary Care Unavailable Bert, Harish Referring Unavailable Bert, Harish Attending Unavailable Bert, Harish Primary Care Unavailable Bert, Harish Referring Unavailable Bert, Harish Attending Unavailable Bert, Harish Primary Care Unavailable Ravi Lamb Attending Unavailable Bert, Harish Primary Care Unavailable de Polly Herr Consulting Unavailable Polly Lomeli Admitting Unavailable Melissa Nathan Attending Unavailable Bella, Sly Referring Unavailable Bert, Harish Primary Care Unavailable Schwignacia, Nathan Attending Unavailable Bert, Harish Primary Care Unavailable de Polly Herr Referring Unavailable Delgado Cruz Attending Unavailabl e Bella, Sly Referring Unavailable Bert, Harish Primary Care Unavailable de Polly Herr Admitting Unavailable Polly Lomeli Attending Unavailable Polly Lomeli Consulting Unavailable Melissa Nathan Consulting Unavailable Delgado Cruz Attending Unavailabl e Mayteppjulia, Nathan Attending Unavailable Bert, Harish Primary Care Unavailable Bert, Harish Attending Unavailable Bert, Harish Primary Care Unavailable Bert, Harish Attending Unavailable Bert, Harish Primary Care Unavailable Bert, Harish Attending Unavailable Bert, Harish Primary Care Unavailable Schwignacia, Nathan Attending Unavailable Bert MCARTHUR, Dr. Chin Primary Care Provider [phone] [place] Masoud Escobar DO Emergency Provider Dr. Polly Lomeli DO Admit Provider Unavail able Dr. Polly Lomeli DO Attending Provider Unav ailable Allergies Allergy Classification Reported Allergen(s) Allergy Type Date of Onset Reaction(s) Facility (16 sources) alogliptin; Translations: [alogliptin] Drug Allergy 06-17-19 22 Weal (disorder) [facility] (16 sources) Aspirin; Translations: [aspirin] Drug Allergy 06-17-19 blood clots [facility] [place] (12 sources) canagliflozin Drug Allergy 06-17-[address] [facility] (12 sources) dulaglutide Drug Allergy 06-17-19 [facility] (16 sources) glipiZIDE; Translations: [glipizide] Drug Allergy 06-17-19 [facility] (14 sources) levothyroxine; Translations: [levothyroxine] Drug Allergy 06-17-19 Eruption of skin (disorder), Diarrhea (finding) [facility] (16 sources) metFORMIN; Translations: [metformin] Drug Allergy 06-17-19 Hives, Diarrhea [facility] [place] (13 sources) Penicillins; Translations: [Penicillins] Allergy to substance 06-17-19 [facility] (4 sources) canagliflozin; Translations: [canagliflozin] Drug Allergy Stomach Pains, Diarrhea [facility] [place] (4 sources) dulaglutide; Translations: [dulaglutide] Drug Allergy [facility] (4 sources) HMG-CoA reductase inhibitor; Translations: [statins] Drug allergy [facility] (4 sources) Penicillin; Translations: [penicillins] Drug Allergy [facility] (1 source) alogliptin Drug Allergy 07-03-19 [facility] (1 source) Aspirin Drug Allergy 07-03-19 [facility] (1 source) canagliflozin Drug Allergy 07-03-19 [facility] (1 source) dulaglutide Drug Allergy 07-03-19 [facility] (1 source) glipiZIDE Drug Allergy 07-03-19 [facility] (1 source) metFORMIN Drug Allergy 07-03-19 [facility] Medications Current Medications Medication Drug Class(es) Dates Sig (Normalized) Sig (Original) [id number] 200 actuat albuterol 0.09 mg/actuat metered dose inhaler (15 sources) beta2-Adrenergic Agonist Start: 09-07-2024 Albuterol Sulfate 90 mcg/actuation HFA aerosol inhaler Active 2 NMA INHALATION EVERY 6 HOURS as needed for shortness of breath or wheezing September 07, 2024 12:00am Start: 01-16-2024 End: 04-29-2024 Albuterol Sulfate 90 mcg/act uation HFA aerosol inhaler Discontinued 2 NMA INHALATION EVERY 6 HOURS as needed for shortness of breath or wheezing 8.5 January 16, 2024 12:00am April 29, 2024 9:11pm Start: 04-15-2019 End: 02-25-2020 Albuterol Sulfate 1 INHALER inhaler Discontinued 2 NMA INHALATION EVERY 4 HOURS NEEDED as needed for Wheezing 1 April 15, 2019 1:00am February 25, 2020 3:47pm Start: 04-15-2019 End: 02-25-2020 take 1 puff(s) by inhalation every four hours as needed Albuterol Sulfate Discontinued 2 PUFF INHALATION EVERY 4 HOURS NEEDED 1 April 15, 2019 1:00am February 25, 2020 3:47pm Blood-Glucose Sensor (Dexcom G7 Sensor) device (2 sources) Start: 01-20-2024 Blood-Glucose Sensor (Dexcom G7 Sensor) device Active 0 .Route 1 January 20, 2024 1:00am As directed bumetanide 1 mg oral tablet (16 sources) Loop Diuretic Start: 01-11-2022 take 1 [...] 28, 2021 8:23am January 08, 2022 2:18pm cholecalciferol 0.025 mg oral capsule (1 source) Vitamin D Start: 01-15-2022 take 25 ug by mouth once daily Cholecalciferol (Vitamin D3) Active 25 MCG PO DAILY January 15, 2022 12:00am 3 ml insulin aspart protamine, human 70 unt/ml / insulin aspart, human 30 unt/ml pen injector (13 sources) Insulin Analog Start: 01-18-2021 NovoLOG Mix 70 /30 FlexPen 3 mL Pen See Instructions, inject 24 units subcutaneously twice a day before meals, # 15 mL, 3 Refill(s), Pharmacy: [id number], 157.2, cm, 01/21/20 14:13:00 EST, Height, kg, [...] And Regular Human (20 sources) Insulin Start: 08-17-2024 Insulin Nph An d Regular Human (Novolin 70-30 Flexpen U-100) 100 unit/mL (70-30) insulin pen Active 0 SC .COMPLEX August 17, 2024 2:20pm subcutaneously; 28 units each AM (Breakfast) and 32 units each PM (Supper). Start: 07-02-2024 End: 08-17-2024 Insulin Nph And Regular Colleen n (Novolin 70-30 Flexpen U-100) 100 unit/mL (70-30) insulin pen Discontinued 0 SC .COMPLEX July 02, 2024 1:46pm August 17, 2024 2:20pm subcutaneously; 28 units each AM (Breakfast) and 32 units each PM (Supper). Start: 07-02-2024 Insulin Nph An d Regular [...] 12:00am June 07, 2021 8:26am levothyroxine sodium 0.112 mg oral tablet (20 sources) l-Thyroxine Start: 09-07-2024 take 1 tablet by mouth once daily Levothyroxine 112 mcg tablet Active 112 ug PO DAILY September 07, 2024 12:00am Start: 07-20-2024 End: 09-07-2024 take 1 tablet by mouth once daily Levothyroxine 125 mcg tablet Discontinued 125 ug PO DAILY August 17, 2024 2:20pm September 07, 2024 12:19am Start: 10-01-2022 End: 07-20-2024 take 1 tablet [...] # 25 tab(s), 3 Refill(s), Pharmacy: [id number], 157.5, cm, 08/31/19 16:27:00 EDT, Height, kg, 08/31/19 16:27:00 EDT, Dosing Weight Start Date: 08/31/19 Status: Ordered traZODone hydrochloride 50 mg oral tablet (8 sources) Serotonin Reuptake Inhibitor Start: 12-05-2021 traZODone [...] Sig (Original) acetaminophen 325 mg oral tablet (9 sources) Start: 12-05-2021 End: 01-11-2022 take 2 [...] 0 Refill(s) Start Date: 11/29/21 Status: Ordered amLODIPine 2.5 mg oral tablet (4 sources) Dihydropyridine Calcium Channel Jung Start: 04-11-2022 End: 05-16-2022 take 1 tablet by mouth once daily Amlodipine 2.5 mg tablet Discontinued 2.5 mg PO DAILY April 11, 2022 1:00am May 16, 2022 2:12pm atorvastatin 40 mg oral tablet (19 sources) HMG-CoA Reductase Inhibitor Start: 09-05-2021 End: 09-06-2021 take 1 tablet by mouth at bedtime Atorvastatin 40 mg tablet Discontinued 40 mg PO AT BEDTIME September 05, 2021 11:16am September 06, 2021 2:13pm carvedilol 25 mg oral tablet (20 sources) alpha-Adrenergic Jung, beta-Adrenergic Jung Start: 12-05-2021 End: 04-15-2024 take 1 tablet by mouth twice daily at mealtime Carvedilol 25 mg tablet Discontinued 25 mg PO TWICE A DAY December 16, 2023 12:50pm April 15, 2024 5:33pm must administer with a meal/food Start: 11-29-2021 [...] 25, 2021 2:43pm December 05, 2021 1:07pm clopidogrel 75 mg oral tablet (2 sources) [id number] Platelet Inhibitor Start: 01-28-2023 End: 01-16-2024 take 1 tablet by mouth once daily Clopidogrel 75 mg tablet Discontinued 75 mg PO DAILY January 28, 2023 1:00am January 16, 2024 12:53pm docusate calcium 240 mg oral capsule (9 sources) Start: 11-29-2021 End: 01-08-2022 take 1 [...] Start Date: 11/29/21 Status: Ordered Handicap Placard (6 sources) Start: 01-08-2022 End: 01-09-2023 Handicap Placard [...] ml insulin glargine 100 unt/ml pen injector (9 sources) Insulin Analog Start: 12-05-2021 Lantus Solosta [...] ml insulin lispro 100 unt/ml pen injector (20 sources) Insulin Analog Start: 12-05-2021 End: 01-08-2022 [...] lispro protamine, human 75 unt/ml pen injector (4 sources) Insulin Analog Start: 04-16-2024 End: 07-02-2024 [...] mononitrate 30 mg extended release oral tablet (11 sources) Nitrate Vasodilator Start: 09-05-2021 End: 09-05-2021 take 1 tablet by mouth once daily, then take 1 tablet by mouth every twenty-four hours Isosorbide Mononitrate 30 mg tablet extended release 24 hr Discontinued 30 mg PO DAILY September 05, 2021 12:00am September 05, 2021 11:17am liothyronine sodium 0.005 mg oral tablet (12 sources) l-Triiodothyroni ne Start: 04-12-2019 End: 12-14-2019 take 1 tablet by mouth once daily Liothyronine 5 MCG tablet Discontinued 5 ug PO DAILY April 12, 2019 1:00am December 14, 2019 4:15pm lisinopril 10 mg oral tablet (12 sources) Angiotensin Converting Enzyme Inhibitor Start: 02-25-2020 End: 03-21-2020 take 1 tablet by mouth once daily Lisinopril 10 mg tablet Discontinued 10 mg PO DAILY February 25, 2020 1:00am March 21, 2020 2:00pm losartan potassium 25 mg oral tablet (2 sources) Angiotensin 2 Receptor Jung Start: 01-28-2023 End: 08-05-2023 take 1 tablet by mouth once daily Losartan 25 mg tablet Discontinued 25 mg PO DAILY January 28, 2023 1:00am August 05, 2023 1:57pm microencapsulated potassium chloride 20 meq extended release oral tablet (20 sources) Start: 01-11-2022 End: 10-03-2022 take 1 [...] Ordered pravastatin sodium 20 mg oral tablet (8 sources) HMG-CoA Reductase Inhibitor Start: 09-06-2021 End: 09-07-2021 take 1 tablet by mouth at bedtime Pravastatin 20 mg tablet Discontinued 20 mg PO AT BEDTIME September 06, 2021 12:00am September 07, 2021 10:28am sulfamethoxazole 800 mg / trimethoprim 160 mg oral tablet (12 sources) Dihydrofolate Reductase Inhibitor Antibacterial, Sulfonamide Antimicrobial Start: 05-11-2020 End: 05-11-2020 Sulfamethoxazole- Trimethoprim (Bactrim Ds) 800-160 mg tablet Discontinued 1 {tbl} PO TWICE A DAY May 11, 2020 1:00am May 11, 2020 12:16pm thyroid (halfway) 60 mg oral tablet (20 sources) Start: 06-16-2021 End: 05-16-2022 take 1 tablet by mouth once daily Thyroid (Pork) ([place] Thyroid) 60 mg tablet Discontinued 60 mg PO DAILY 60 March 16, 2022 2:53pm May 16, 2022 [...] 11:15am traMADol hydrochloride 50 mg oral tablet (7 sources) Opioid Agonist Start: 11-29-2021 End: 01-08-2022 take 1 tablet by mouth every six hours as needed Tramadol 50 mg tablet Discontinued 50 mg PO EVERY 6 HOURS as needed December 05, 2021 12:00am January 08, 2022 2:20pm triamcinolone acetonide 1 mg/ml topical cream (3 sources) Corticosteroid Start: 07-28-2022 End: 10-03-2022 Triamcinolone Acetonide 0.1 % cream Discontinued 1 NMA TOPICAL TWICE A DAY July 28, 2022 12:00am October 03, 2022 1:10pm Problems Active Problems Problem Classification Problem Date Documented Da te Episodic/Chronic Abdominal pain (2 sources) Abdominal pain; Translations: [Unspecified abdominal pain] 09-11-2023 Episodic Acute bronchitis (5 sources) Acute bronchitis with bronchospasm; Translations: [Acute bronchitis, unspecified] 01-29-2022 Episodic Acute myocardial infarction (4 sources) Myocardial infarction 01-18-2016 Chronic Comment on above: 01-05-16 Echo EF 50% 01-03-16 PCI with ba johanneon angioplasty and stenting LAD, Cardiogenic shock with resp failure Acute posthemorrhagic anemia (2 sources) Acute posthemorrhagic anemia; Translations: [Acute posthemorrhagic anemia] Onset: 2 Episodic Allergic reactions (3 sources) Contact dermatitis; Translations: [Unspecified contact dermatitis, unspecified cause] 07-28-2022 Episodic Asthma (4 sources) Asthmatic bronchitis; Translations: [Unspecified asthma, uncomplicated] [...] Episodic Conditions associated with dizziness or vertigo (12 sources) Dizziness; Translations: [Dizziness and giddiness] 09-03-2018 [...] status post L AD and RCA PCI. Diabetes mellitus with complications (9 sources) Type II diabetes mellitus uncontrolled; Translations: [Hyperglycemia due to type 2 diabetes mellitus] 09-10-2019 Chronic Diabetes mellitus without complication (20 sources) Diabetes mellitus; Translations: [Type 2 diabetes mellitus without complications] Onset: 2 Chronic Diabetes mellitus without complication (1 source) Hyperglycemia, unspecified; Translations: [Hyperglycemia, unspecified] Onset: 5 Episodic Diseases of mouth; excluding dental (12 sources) Disorder of lip; Translations: [Diseases of lips] 07-12-2020 Episodic Diseases of white blood cells (20 sources) Leukocytosis; Translations: [Elevated white blood cell [...] [Dysuria] Onset: 2 Episodic Headache; including migraine (15 sources) Headache; Translations: [Headache] 09-16-2021 Episodic Hypertension with complications and secondary hypertension (5 sources) Chronic kidney disease due to hypertension; Translations: [Hypertensive chronic kidney disease with stage 1 through stage 4 chronic kidney disease, or unspecified chronic kidney disease] Onset: 5 Chronic Malaise and fatigue (9 sources) Fatigue; Translations: [Other fatigue] Onset: 5 [...] vein thrombosis 10-21-2015 Episodic Other gastrointestinal disorders (17 sources) Irritable bowel syndrome; Translations: [Irritable bowel [...] bleed 11-24-2021 Episodic Other lower respiratory disease (19 sources) Cough; Translations: [Cough] 03-18-2020 Episodic Other lower respiratory disease (20 sources) Dyspnea; Translations: [Dyspnea, unspecified] 03-18-2020 Episodic Other lower respiratory disease (14 sources) Dyspnea on exertion; Translations: [Dyspnea, unspecified] [...] Onset: 5 Episodic Other nervous system disorders (12 sources) Carpal tunnel syndrome; Translations: [Carpal tunnel syndrome, unspecified upper limb] 03-17-2020 Chronic Other nervous system disorders (4 sources) Polyneuropathy 07-14-2019 Chronic Other nutritional; endocrine; and metabolic disorders (7 sources) Obesity; Translations: [Obesity, unspecified] 08-30-2019 Chronic Comment on above: Diet and exercise. Other nutritional; endocrine; and metabolic disorders (5 sources) Body mass index 40+ - severely [...] Chronic Other nutritional; endocrine; and metabolic disorders (2 sources) H/O: diabetes mellitus; Translations: [Personal history of other endocrine, nutritional and metabolic disease] 09-11-2023 Episodic Other screening for suspected conditions (not mental disorders or infectious disease) (9 sources) Thallium stress test abnormal; Translations: [Abnormal result of other cardiovascular function study] 08-03-2021 Episodic Other upper respiratory infections (12 sources) Viral upper respiratory tract infection; Translations: [Acute upper respiratory infection, unspecified] 04-16-2019 Episodic Phlebitis; thrombophlebitis and thromboembolism (5 sources) History of thromboembolism of vein; Translations: [Personal history of other venous thrombosis and embolism] Onset: 2 Episodic Pleurisy; pneumothorax; pulmonary collapse (5 sources) Pleurisy; Translations: [Pleurisy] 01-29-2022 Episodic Residual codes; unclassified (12 sources) Generalized aches and pains; Translations: [Pain, [...] Episodic Comment on above: quit 12/2015 Shock (16 sources) Cardiogenic shock; Translations: [Cardiogenic shock] 08-30-2019 [...] Statin not tolerated (context-dependent category) 11-24-2021 Unclassified (2 sources) I25.10 - Atherosclerotic heart disease of [place] coronary artery without angina pectoris,R07.9 - Chest pain, unspecified,I10 - Essential (primary) hypertension,E78.5 - Hyperlipidemia, unspecified,E03.9 - Hypothyroidism, unspecified,E11.9 - Type 2 diabetes mellitus without complications Urinary tract infections (4 sources) Urinary tract infectious disease 01-03-2016 Episodic Viral infection (20 sources) Disease caused by 2019-nCoV; Translations: [COVID-19] 03-18-2020 Episodic Past or Other Problems Problem Classification Problem Date Documented Date Episodic/Chronic Coronary atherosclerosis and other heart disease (20 sources) Stented coronary artery; Translations: [Presence of coronary angioplasty implant and graft] Onset: 7 Episodic Comment on above: PCI/BRENNEN in mid RCA 0 04/10/16; PCI/BRENNEN in the prox LAD 01/03/16 Nutritional deficiencies (1 source) Deficiency of other specified B group vitamins; Translations: [Deficiency of other specified B group vitamins] Onset: 4 Episodic Residual codes; unclassified (11 sources) History of cardiac catheterization; Translations: [Other specified postprocedural states] Onset: 2 09-05-2021 Episodic Comment on above: LEFT MAIN: [...] source) LT EAR, MOUTH, NECK PAIN Onset: 7 Results Test Name Value Interpretation Reference Range Facility Absolute lymphocyte countOrd ered By: Masoud Ospina on 09-07-2024 Lymphocytes Auto (Unsp spec) [#/Vol] 1.59 10*3/uL 0.83-4.51 [facility] Absolute neutrophil countOrd ered By: Masoud Ospina on 09-07-2024 Neutrophils (Bld) [#/Vol] 11.4 10*3/uL High 2.0-7.7 [facility] Activated partial thrombopla stin time (aPTT) in platelet poor plasma by coagulation aOrdered By: Masoud Ospina on 09-07-2024 aPTT Coag (PPP) [Time] 25.3 s 24.1-36.2 [facility] Anion gap in Serum or Plasma Ordered By: Masoud Ospina on 09-07-2024 Anion gap [Moles/Vol] 12 mmol/L 5-15 [facility] Automated lymphocyte count a s percentage of total leukocytesOrdered By: Masoud Ospina on 09-07-2024 Lymphocytes/100 WBC Auto (Unsp spec) 11.3 % Low 19-41 [facility] BUN/creatinine ratioOrdered By: Masoud Ospina on 09-07-2024 Urea nitrogen/Creatinine [Mass ratio] 15.2 mg/mg 10-20 [facility] Basophil percentageOrdered B y: Masoud Ospina on 09-07-2024 Basophils/100 WBC (Bld) 0.5 % 0-1 [facility] Carbon dioxide, total [Moles /volume] in Central venous bloodOrdered By: Masoud Ospina on 09-07-2024 CO2 [Moles/Vol] 26.1 mmol/L 21.0-32.0 [facility] Chloride assayOrdered By: Rodolfo Ospina on 09-07-2024 Chloride [Moles/Vol] 98 mmol/L 98-108 [facility] Eosinophil percentageOrdered By: Masoud Ospina on 09-07-2024 Eosinophils/100 WBC (Bld) 1.6 % 0-5 [facility] Erythrocyte distribution wid th ratioOrdered By: Masoud Ospina on 09-07-2024 Erythrocyte distribution width (RBC) [Ratio] 13.1 % 11.6-14.6 [facility] Erythrocyte distribution wid th standard deviationOrdered By: Masoud Escobar on 09-07-2024 Erythrocyte distribution width (RBC) [Ratio] 44.1 fl High 35.1-43.9 [facility] Glomerular filtration rate ( GFR) estimation/1.73 sq m using serum, plasma, or whole bOrdered By: Masoud Ospina on 09-07-2024 GFR/1.73 sq M.predicted among non-blacks MDRD (S/P/Bld) [Vol rate/Area] 72 mL/min/{1.73_m2} >60 [facility] Comment on above: mL/min/1.73m2 CKD-EP I Creatinine Equation (2020) Glucose measurement at bedsi deOrdered By: Masoud Ospina on 09-07-2024 Glucose [Mass/Vol] 210 mg/dL High 74-106 [facility] Comment on above: MANAGEMENT OF PATIEN T CARE PER NURSING PROTOCOL Hematocrit Auto (Bld) [Volum e fraction]Ordered By: Masoud Ospina on 09-07-2024 Hematocrit (Bld) [Volume fraction] 43.2 % 37-47 [facility] Hemoglobin measurementOrdere d By: Masoud Ospina on 09-07-2024 Hemoglobin (Bld) [Mass/Vol] 13.9 g/dL 12.0-15.0 [facility] Immature granulocytes/100 WB C Auto (Bld)Ordered By: Masoud Ospina on 09-07-2024 Immature granulocytes/100 WBC (Bld) 0.600 % 0.0-0.9 [facility] Comment on above: IG% - Immature Granu locytes (promyelocytes, myelocytes and metamyelocytes) > 1% indicates that a LEFT SHIFT is Present. International normalized rat io (INR) calculationOrdered By: Masoud Ospina on 09-07-2024 INR Coag (Bld) [Relative time] 1.0 {INR} [facility] MCV (mean corpuscular volume ) determinationOrdered By: Masoud Ospina on 09-07-2024 MCV (RBC) [Entitic vol] 91.9 fL 81-99 [facility] Mean corpuscular hemoglobin (MCH) determinationOrdered By: Masoudjena Ospina on 09-07-2024 MCH (RBC) [Entitic mass] 29.6 pg 27.0-32.0 [facility] Mean corpuscular hemoglobin concentration (MCHC) determinationOrdered By: Masoud Ospina on 09-07-2024 MCHC (RBC) [Mass/Vol] 32.2 g/dL 32-36 [facility] Mean platelet volume determi nationOrdered By: Masoudjena Ospina on 09-07-2024 Platelet mean volume (Bld) [Entitic vol] 11.6 fL 6.2-12.0 [facility] Monocyte percentageOrdered B y: Masoud Ospina on 09-07-2024 Monocytes/100 WBC (Bld) 5.1 % 0-10 [facility] Natriuretic peptide.B prohor don N-Terminal [Mass/volume] in Serum or PlasmaOrdered By: Masoud Ospina on 09-07-2024 Natriuretic peptide.B prohormone N-Terminal [Mass/Vol] 619 pg/mL <900 [facility] Comment on above: Heart Failure Unlike ly: < 300 pg/mLHeart Failure Likely< 50 Years: > 450 pg/mL50-75 Years: > 900 pg/mL>75 Years: > 1800 pg/mL Neutrophil percentageOrdered By: Masoud Ospina on 09-07-2024 Neutrophils/100 WBC (Bld) 80.9 % High 47-70 [facility] Nucleated red blood cell per centageOrdered By: Masoud Ospina on 09-07-2024 Nucleated RBC/100 WBC (Bld) [Ratio] 0 % 0-5 [facility] Platelet countOrdered By: Rodolfo Ospina on 09-07-2024 Platelets (Bld) [#/Vol] 272 10*3/uL 150-450 [facility] Potassium measurement (mass/ volume)Ordered By: Masoud Ospina on 09-07-2024 Potassium (Unsp spec) [Mass/Vol] 4.5 mmol/L 3.3-5.1 [facility] Prothrombin timeOrdered By: Masoud Ospina on 09-07-2024 PT Coag (PPP) [Time] 13.5 s 11.7-14.9 [facility] RBC Auto (Bld) [#/Vol]Ordere d By: Masoud Ospina on 09-07-2024 RBC (Bld) [#/Vol] 4.70 10*6/uL 4.2-5.4 [facility] Serum creatinine measurement (mass/volume)Ordered By: Masoud Ospina on 09-07-2024 Creatinine [Mass/Vol] 0.86 mg/dL 0.70-1.20 [facility] Serum glucose measurement (m ass/volume)Ordered By: Masoud Ospina on 09-07-2024 Glucose [Mass/Vol] 232 mg/dL High 70-99 [facility] Serum or plasma calcium betsy urement (mass/volume)Ordered By: Masoud Escobar on 09-07-2024 Calcium [Mass/Vol] 9.5 mg/dL 7.6-11.0 [facility] Serum or plasma urea nitroge n measurement (mass/volume)Ordered By: Masoud Ospina on 09-07-2024 Urea nitrogen [Mass/Vol] 13 mg/dL 4-19 [facility] Sodium levelOrdered By: Jermaine Ospina on 09-07-2024 Sodium [Moles/Vol] 136 mmol/L 133-145 [facility] Troponin T.cardiac [Mass/vol ume] in Serum or Plasma by High sensitivity methodOrdered By: Masoud Ospina on 09-07-2024 Troponin T.cardiac High sensitivity method [Mass/Vol] 19 ng/L High <14 [facility] Comment on above: Hemolysis present, R esults could be affected. Troponin T.cardiac High sensitivity method [Mass/Vol] 21 ng/L High <14 [facility] White blood cell (WBC) count Ordered By: Masoud [facility] on 09-07-2024 WBC (Bld) [#/Vol] 14.1 10*3/uL High 4.4-11.0 [facility] Anion gap in Serum or Plasma Ordered By: Harish Noel on 07-16-2024 Anion gap [Moles/Vol] 11 mmol/L 5-15 [facility] BUN/creatinine ratioOrdered By: Harish Noel on 07-16-2024 Urea nitrogen/Creatinine [Mass ratio] 18.8 mg/mg 10-20 [facility] Bilirubin, totalOrdered By: Harish Noel on 07-16-2024 Bilirubin [Mass/Vol] 0.73 mg/dL 0.00-1.30 [facility] Carbon dioxide, total [Moles /volume] in Central venous bloodOrdered By: Harish Noel on 07-16-2024 CO2 [Moles/Vol] 26.7 mmol/L 21.0-32.0 [facility] Chloride assayOrdered By: Madison Noel on 07-16-2024 Chloride [Moles/Vol] 97 mmol/L Low 98-108 [facility] Comprehensive Metabolic Prof ilon 07-16-2024 Albumin [Mass/Vol] 3.8 g/dL Normal 3.4-4.8 [facility] Comment on above: Performed By: #### L 501.9985, L501.91863, L500.4050, L501.9520, L503.0106, L501.5200, L506.1001, L506.0400 ####[facility] [address] [place], [address] Albumin/Globulin [Mass ratio] 1.2 {ratio} Normal 0.9-2.4 [facility] Comment on above: Performed By: #### L 501.9985, L501.88131, L500.4050, L501.9520, L503.0106, L501.5200, L506.1001, L506.0400 ####[facility] [address] [place], [address] ALK PHOS 94 U/L Normal 35-104 [facility] Comment on above: Performed By: #### L 501.9985, L501.44301, L500.4050, L501.9520, L503.0106, L501.5200, L506.1001, L506.0400 ####[facility] [address] [place], [place], [phone]) ALT [Catalytic activity/Vol] 12 U/L Normal <=34 [facility] Comment on above: Performed By: #### L 501.9985, L501.49109, L500.4050, L501.9520, L503.0106, L501.5200, L506.1001, L506.0400 ####[facility] [address] [place], [place], [phone]) AST [Catalytic activity/Vol] 16 U/L Normal <=31 [facility] Comment on above: Performed By: #### L 501.9985, L501.46304, L500.4050, L501.9520, L503.0106, L501.5200, L506.1001, L506.0400 ####[facility] [address] [place], [address] Bilirubin [Mass/Vol] 0.73 mg/dL Normal 0.00-1.30 [facility] Comment on above: Performed By: #### L 501.9985, L501.87188, L500.4050, L501.9520, L503.0106, L501.5200, L506.1001, L506.0400 ####[facility] [address] [place], [address] BUN/CRE 18.8 RATIO Normal 10-20 [facility] Comment on above: Performed By: #### L 501.9985, L501.74475, L500.4050, L501.9520, L503.0106, L501.5200, L506.1001, L506.0400 ####[facility] [address] [place], [address] Calcium [Mass/Vol] 9.1 mg/dL Normal 7.6-11.0 [facility] Comment on above: Performed By: #### L 501.9985, L501.43171, L500.4050, L501.9520, L503.0106, L501.5200, L506.1001, L506.0400 ####[facility] [address] [place], [address] Chloride [Moles/Vol] 97 mmol/L Low 98-108 [facility] Comment on above: Performed By: #### L 501.9985, L501.52544, L500.4050, L501.9520, L503.0106, L501.5200, L506.1001, L506.0400 ####[facility] [address] [place], [address] CO2 [Moles/Vol] 26.7 mmol/L Normal 21.0-32.0 [facility] Comment on above: Performed By: #### L 501.9985, L501.65029, L500.4050, L501.9520, L503.0106, L501.5200, L506.1001, L506.0400 ####[facility] [address] [place], [place], [phone](285) Creatinine [Mass/Vol] 0.84 mg/dL Normal 0.70-1.20 [facility] Comment on above: Performed By: #### L 501.9985, L501.18153, L500.4050, L501.9520, L503.0106, L501.5200, L506.1001, L506.0400 ####[facility] [address] [place], [place], [phone](014) GAP 11 Normal 5-15 [facility] Comment on above: Performed By: #### L 501.9985, L501.86089, L500.4050, L501.9520, L503.0106, L501.5200, L506.1001, L506.0400 ####[facility] [address] [place], [address](623) GFR/1.73 sq M.predicted among non-blacks MDRD (S/P/Bld) [Vol rate/Area] 74 mL/min/{1.73_m2} Normal >60 [facility] Comment on above: Result Comment: mL/m in/1.73m2 CKD-EPI Creatinine Equation (2020) Performed By: #### L 501.9985, L501.74875, L500.4050, L501.9520, L503.0106, L501.5200, L506.1001, L506.0400 ####[facility] [address] [place], [place], [phone](107) Globulin (S) [Mass/Vol] 3.3 g/dL Normal 2.2-4.2 [facility] Comment on above: Performed By: #### L 501.9985, L501.80924, L500.4050, L501.9520, L503.0106, L501.5200, L506.1001, L506.0400 ####[facility] [address] [place], [place], [phone]) Glucose [Mass/Vol] 253 mg/dL High 70-99 [facility] Comment on above: Performed By: #### L 501.9985, L501.05633, L500.4050, L501.9520, L503.0106, L501.5200, L506.1001, L506.0400 ####[facility] [address] [place], [address] Potassium [Moles/Vol] 4.5 mmol/L Normal 3.3-5.1 [facility] Comment on above: Performed By: #### L 501.9985, L501.07446, L500.4050, L501.9520, L503.0106, L501.5200, L506.1001, L506.0400 ####[facility] [address] [place], [place], [phone]) Sodium [Moles/Vol] 134 mmol/L Normal 133-145 [facility] Comment on above: Performed By: #### L 501.9985, L501.44436, L500.4050, L501.9520, L503.0106, L501.5200, L506.1001, L506.0400 ####[facility] [address] [place], [place], [phone](804) T PROT 7.1 g/dL Normal 5.9-8.4 [facility] Comment on above: Performed By: #### L 501.9985, L501.05904, L500.4050, L501.9520, L503.0106, L501.5200, L506.1001, L506.0400 ####[facility] [address] [place], [address] Urea nitrogen [Mass/Vol] 16 mg/dL Normal 4-19 [facility] Comment on above: Performed By: #### L 501.9985, L501.35900, L500.4050, L501.9520, L503.0106, L501.5200, L506.1001, L506.0400 ####[facility] [address] [place], [place], [phone] Free T3on 07-16-2024 Free T3 [Mass/Vol] 2.8 pg/mL Normal 2.18-3.98 [facility] Comment on above: Performed By: #### L 501.9985, L501.23710, L500.4050, L501.9520, L503.0106, L501.5200, L506.1001, L506.0400 ####[facility] [address] [place], [place], [address] Free N4Cuqhhqv By: Harish garza on 07-16-2024 Free T3 [Mass/Vol] 2.8 pg/mL 2.18-3.98 [facility] Free Triiodothyronine (T3) pg/dL 2.8 pg/mL 2.18-3.98 [facility] GFR/1.73 sq M.predicted domenico g non-blacks MDRD (S/P/Bld) [Vol rate/Area]Ordered By: Harish Noel on 07-16-2024 Estimated GFR (MDRD) Non-Af Amer [address] >[address] [facility] Comment on above: mL/min/1.73m2 CKD-EP I Creatinine Equation (2020) Glomerular filtration rate ( GFR) estimation/1.73 sq m using serum, plasma, or whole bOrdered By: Harish Noel on 07-16-2024 GFR/1.73 sq M.predicted among non-blacks MDRD (S/P/Bld) [Vol rate/Area] 74 mL/min/{1.73_m2} >60 [facility] Comment on above: mL/min/1.73m2 CKD-EP I Creatinine Equation (2020) Hemoglobin A1con 07-16-2024 HbA1c (Bld) [Mass fraction] 9.6 % High <=5.6 [facility] Comment on above: Result Comment: Norm al < 5.7 % Prediabetic 5.7 - 6.4 % Diabetic >or= 6.5 % Please note range changes. Performed By: #### L 501.9985, L501.55566, L500.4050, L501.9520, L503.0106, L501.5200, L506.1001, L506.0400 #### [facility] [address] [facility] [facility] [place], [address] Hemoglobin A1c percentageOrd ered By: Harish Noel on 07-16-2024 HbA1c (Bld) [Mass fraction] 9.6 % High <5.7 [facility] Comment on above: Normal < 5.7 % Predi abetic 5.7 - 6.4 % Diabetic >or= 6.5 % Please note range changes. Laboratory - Chemistry and C hemistry - challengeOrdered By: Harish Noel on 07-16-2024 AST [Catalytic activity/Vol] 16 U/L <32 [facility] Magnesiumon 07-16-2024 Magnesium [Mass/Vol] 2.0 mg/dL Normal 1.5-2.2 [facility] Comment on above: Performed By: #### L 501.9985, L501.80389, L500.4050, L501.9520, L503.0106, L501.5200, L506.1001, L506.0400 ####[facility] [address] [facility] [place], [address] Magnesium (Unsp spec) [Mass/ Vol]Ordered By: Harish Noel on 07-16-2024 Magnesium [Mass/Vol] 2.0 mg/dL 1.5-2.2 [facility] Magnesium measurement (mass/ volume)Ordered By: Harish Noel on 07-16-2024 Magnesium (Unsp spec) [Mass/Vol] 2.0 mg/dL 1.5-2.2 [facility] Potassium (Unsp spec) [Mass/ Vol]Ordered By: Harish Noel on 07-16-2024 Potassium [Moles/Vol] 4.5 mmol/L 3.3-5.1 [facility] Potassium measurement (mass/ volume)Ordered By: Harish Noel on 07-16-2024 Potassium (Unsp spec) [Mass/Vol] 4.5 mmol/L 3.3-5.1 [facility] Serum creatinine measurement (mass/volume)Ordered By: Harish Noel on 07-16-2024 Creatinine [Mass/Vol] 0.84 mg/dL 0.70-1.20 [facility] Serum globulin measurementOr dered By: Hairsh Noel on 07-16-2024 Globulin (S) [Mass/Vol] 3.3 g/dL 2.2-4.2 [facility] Serum glucose measurement (m ass/volume)Ordered By: Harish Noel on 07-16-2024 Glucose [Mass/Vol] 253 mg/dL High 70-99 [facility] Serum or plasma alanine nova otransferase (ALT) measurementOrdered By: Harish Noel on 07-16-2024 ALT [Catalytic activity/Vol] 12 U/L <35 [facility] Serum or plasma albumin betsy urement (mass/volume)Ordered By: Harish Noel on 07-16-2024 Albumin [Mass/Vol] 3.8 g/dL 3.4-4.8 [facility] Serum or plasma albumin/glob ulin mass ratioOrdered By: Harish Noel on 07-16-2024 Albumin/Globulin [Mass ratio] 1.2 {ratio} 0.9-2.4 [facility] Serum or plasma alkaline maritza sphatase measurementOrdered By: Harish Noel on 07-16-2024 ALP [Catalytic activity/Vol] 94 U/L 35-104 [facility] Serum or plasma calcium betsy urement (mass/volume)Ordered By: Harish Noel on 07-16-2024 Calcium [Mass/Vol] 9.1 mg/dL 7.6-11.0 [facility] Serum or plasma urea nitroge n measurement (mass/volume)Ordered By: Harish Noel on 07-16-2024 Urea nitrogen [Mass/Vol] 16 mg/dL 4-19 [facility] Sodium levelOrdered By: Ida Noel on 07-16-2024 Sodium [Moles/Vol] 134 mmol/L 133-145 [facility] T4 Free Directon 07-16-2024 T4 FREE DIRECT 0.90 ng/dL Normal 0.76-1.46 [facility] Comment on above: Performed By: #### L 501.9985, L501.55196, L500.4050, L501.9520, L503.0106, L501.5200, L506.1001, L506.0400 ####[facility] [address] [place], [place], [phone] T4 freeOrdered By: Harish garza on 07-16-2024 Free T4 [Mass/Vol] 0.90 ng/dL 0.76-1.46 [facility] TSH DL <= 0.005 mIU/L QnOrde red By: Harish Noel on 07-16-2024 Thyroid Stimulating Hormone (TSH) 8.170 uIU/mL High 0.300-4.200 [facility] TSH Qn 8.170 uIU/mL High 0.300-4.200 [facility] Thyroid Stim Hormone (TSH)on 07-16-2024 TSH 8.170 uIU/mL High 0.300-4.200 [facility] Comment on above: Performed By: #### L 501.9985, L501.12935, L500.4050, L501.9520, L503.0106, L501.5200, L506.1001, L506.0400 ####[facility] [address] [place], [place], [phone] Total proteinOrdered By: Sharon Noel on 07-16-2024 Protein [Mass/Vol] 7.1 g/dL 5.9-8.4 [facility] Vitamin B12on 07-16-2024 Cobalamin (Vitamin B12) [Mass/Vol] 193 pg/mL Normal 180-914 [facility] Comment on above: Performed By: #### L 501.9985, L501.35118, L500.4050, L501.9520, L503.0106, L501.5200, L506.1001, L506.0400 ####[facility] [address] [place], [address] Vitamin B12 ser/plasOrdered By: Harish Noel on 07-16-2024 Cobalamin (Vitamin B12) [Mass/Vol] 193 pg/mL 180-914 [facility] Vitamin D, 25-hydroxyOrdered By: Harish Noel on 07-16-2024 Vitamin D 25-Hydroxy 12.9 ng/mL Low 30-100 [facility] Comment on above: Vitamin D StatusDefi ciency: <20 ng/mL (50nmol/L)Insufficiency: 20-30 ng/mL (50-75 nmol/L)Sufficiency: 30-100 ng/mL (75-250 nmol/L)Toxicity: >100 ng/mL (>250 nmol/L) Vitamin D,25 Hydroxyon 07-16 Vitamin D 25-OH 12.9 ng/mL Low 30-100 [facility] Comment on above: Result Comment: Lucy min D Status Deficiency: <20 ng/mL (50nmol/L) Insufficiency: 20-30 ng/mL (50-75 nmol/L) Sufficiency: 30-100 ng/mL (75-250 nmol/L) Toxicity: >100 ng/mL (>250 nmol/L) Performed By: #### L 501.9985, L501.43882, L500.4050, L501.9520, L503.0106, L501.5200, L506.1001, L506.0400 ####[facility] [address] [place], [address] MR/BMS.IMBon 07-02-2024 MR/BMS.IMB [facility] [address] [facility] [place] [address] OFFICE VISIT Date of Service: 07/02/24 MR#: [id number] Acct: [id number] Name: FELICITAS ALCANTARA Rep #: [id number] : 1950 Provider: Dr. Harish jose MD Age/Sex: 73/F Location: [facility].IMB Status: Signed Intake Vital Signs 01/16/24 12:59 [...] room air Intake Visit Reasons: 6 M Hand Coper Required: No Accompanied by: Self Is patient [...] you fallen in the past year?: No [facility] Medical History Morbid obesity with BMI of 40.0-44.9, adult History of left heart catheterization (LHC) ( 09/05/21) Abnormal nuclear stress test Dyspnea on exertion Mass of lip Elevated WBC count History of DVT (deep vein thrombosis) Presence of stent in coronary artery ( 04/10/16) History of non-ST elevation myocardial infarction (NSTEMI) Cardiogenic shock Type 2 diabetes mellitus Atherosclerotic heart disease of [place] coronary artery without angina pectoris Essential hypertension [...] 1-2 times per week HPI HPI Details: FELCIITAS ALCANTARA, is a 73 F who presents [...] 70/30 regimen initially started by endocrinology in [place]. She is intolerant to 5 major classes [...] more test (more content not included)... Normal [facility] 12 Lead EKGon 04-30-2024 12 Lead EKG [facility] [address] [place] [address] 12 Lead EKG 04/29/24 2259 MR#: [id number] Acct: [id number] Name: FELICITAS ALCANTARA Rep #: [id number] : 1950 73 From: Delgado Cruz MD Attending Dr: Dr. Nathan Torres DO Status: DIS RUBINA Ordering Dr: Polly Lomeli DO Date: 04/30/24 Location: [facility] Sex: F C Admitted: [...] IS UNCONFIRMED Confirmed by ANTHONY MCARTHUR, ADELA ([id number]), editor dictionary ALLA LAINEZ ([id number]) on 05/01/2024 1:04:57 PM Referred By: Sly Blanco Confirmed By: ADELA CRUZ MD 05/01/24 1304 Date Delgado Cruz MD CC: Dr. Polly Lomeli DO; Dr. Nathan Torres DO; Dr. Harish Noel MD; Dr. Sly Blanco DO Signed [facility] Absolute neutrophil countOrd ered By: Polly Herr on 04-30-2024 Neutrophils (Bld) [#/Vol] 16.1 10*3/uL High 2.0-7.7 [facility] Albumin to globulin ratioOrd ered By: Polly Herr on 04-30-2024 Albumin/Globulin [Mass ratio] 0.8 {ratio} Low 0.9-2.4 [facility] Automated blood erythrocyte countOrdered By: Polly Herr on 04-30-2024 RBC (Bld) [#/Vol] 5.60 10*6/uL High 4.2-5.4 [facility] Comment on above: Performed By: #### L 501.5200, L501.2300, L500.4050, L100.0100 ####[facility] [address] [place], [address] Automated blood hematocrit ( percentage)Ordered By: Polly Herr on 04-30-2024 Hematocrit (Bld) [Volume fraction] 49.8 % High 37-47 [facility] Comment on above: Performed By: #### L 501.5200, L501.2300, L500.4050, L100.0100 ####[facility] [address] [place], [address] Automated lymphocyte count a s percentage of total leukocytesOrdered By: Polly Herr on 04-30-2024 Lymphocytes/100 WBC (Bld) 7.1 % Low 19-41 [facility] Comment on above: Performed By: #### L 501.5200, L501.2300, L500.4050, L100.0100 ####[facility] [address] [place], [address] Basophil percentageOrdered B y: Polly Herr on 04-30-2024 Basophils/100 WBC (Bld) 0.6 % Normal 0-1 [facility] Comment on above: Performed By: #### L 501.5200, L501.2300, L500.4050, L100.0100 ####[facility] [address] [place], [address] Bedside Glucoseon 04-30-2024 FINGERSTICK GLU 307 mg/dL High [address] [place] [address] Comment on above: Result Comment: RIMMA GEMENT OF PATIENT CARE PER NURSING PROTOCOL Performed By: #### L 100.0100, L500.2500, L300.8000, L501.4020 #### [facility] [address] [place], [address] FINGERSTICK GLU 399 mg/dL High [address] [place] [address] Comment on above: Result Comment: RIMMA GEMENT OF PATIENT CARE PER NURSING PROTOCOL Performed By: #### L 501.080 ####[facility] [address] [place], [address] FINGERSTICK GLU 404 mg/dL High [address] [place] [address] Comment on above: Result Comment: RIMMA GEMENT OF PATIENT CARE PER NURSING PROTOCOL Performed By: #### L 100.0100, L500.2500, L300.8000, L501.4020 #### [facility] [address] [place], [address] FINGERSTICK GLU 365 mg/dL High [address] [place] [address] Comment on above: Result Comment: RIMMA GEMENT OF PATIENT CARE PER NURSING PROTOCOL Performed By: #### L 100.0100, L500.2500, L300.8000, L501.4020 #### [facility] [address] [place], [address] FINGERSTICK GLU 245 mg/dL High [address] [place] [address] Comment on above: Result Comment: RIMMA GEMENT OF PATIENT CARE PER NURSING PROTOCOL Performed By: #### L 100.0100, L500.2500, L300.8000, L501.4020 #### [facility] [address] [place], [address] Bilirubin, totalOrdered By: Polly Herr on 04-30-2024 Bilirubin [Mass/Vol] 1.10 mg/dL High 0.20-1.00 [facility] Comment on above: For patients on eltr ombopag therapy, use of Dimension Sodus TBIL is not recommended. Blood urea nitrogen (BUN)/cr eatinine ratioOrdered By: Polly Herr on 04-30-2024 Urea nitrogen/Creatinine [Mass ratio] 17.6 mg/mg 10-20 [facility] CBC W/Diff, Automatedon 04-18 Absolute Lymph 1.26 X10 3/uL Normal 0.83-4.51 [facility] Comment on above: Performed By: #### L 501.5200, L501.2300, L500.4050, L100.0100 ####[facility] [address] [place], [address] Absolute Neut 16.1 X10 3/uL High 2.0-7.7 [facility] Comment on above: Performed By: #### L 501.5200, L501.2300, L500.4050, L100.0100 ####[facility] [address] [place], [address] IG% 1.200 High 0.0-0.9 [facility] Comment on above: Result Comment: IG% - Immature Granulocytes (promyelocytes, myelocytes and metamyelocytes) > 1% indicates that a LEFT SHIFT is Present. Performed By: #### L 501.5200, L501.2300, L500.4050, L100.0100 ####[facility] [address] [place], [address] Nucleated RBC (Bld) [#/Vol] 0 10*3/uL Normal 0-5 [facility] Comment on above: Performed By: #### L 501.5200, L501.2300, L500.4050, L100.0100 ####[facility] [address] [place], [address] RDW SD 43.2 fl Normal 35.1-43.9 [facility] Comment on above: Performed By: #### L 501.5200, L501.2300, L500.4050, L100.0100 ####[facility] [address] [place], [address] Carbon dioxide measurementOr dered By: Polly Herr on 04-30-2024 CO2 [Moles/Vol] 25.0 mmol/L 21.0-32.0 [facility] Chloride measurementOrdered By: Polly Herr on 04-30-2024 Chloride [Moles/Vol] 100 mmol/L 98-107 [facility] Comprehensive Metabolic Prof ilon 04-30-2024 Albumin [Mass/Vol] 3.8 g/dL Normal 3.2-5.0 [facility] Comment on above: Performed By: #### L 501.5200, L501.2300, L500.4050, L100.0100 ####[facility] [address] [place], [address] Albumin/Globulin [Mass ratio] 0.8 {ratio} Low 0.9-2.4 [facility] Comment on above: Performed By: #### L 501.5200, L501.2300, L500.4050, L100.0100 ####[facility] [address] [place], [address] ALK P 116 U/L Normal 45-117 [facility] Comment on above: Performed By: #### L 501.5200, L501.2300, L500.4050, L100.0100 ####[facility] [address] [place], [address] ALT [Catalytic activity/Vol] 19 U/L Normal 13-56 [facility] Comment on above: Performed By: #### L 501.5200, L501.2300, L500.4050, L100.0100 ####[facility] [address] [place], [address] AST [Catalytic activity/Vol] 15 U/L Normal 15-37 [facility] Comment on above: Performed By: #### L 501.5200, L501.2300, L500.4050, L100.0100 ####[facility] [address] [place], [address] Bilirubin [Mass/Vol] 1.10 mg/dL High 0.20-1.00 [facility] Comment on above: Result Comment: For patients on eltrombopag therapy, use of Dimension Sodus TBIL is not recommended. Performed By: #### L 501.5200, L501.2300, L500.4050, L100.0100 ####[facility] [address] [place], [address] BUN/CRE 17.6 RATIO Normal 10-20 [facility] Comment on above: Performed By: #### L 501.5200, L501.2300, L500.4050, L100.0100 ####[facility] [address] [place], [address] CA,Total 10.4 mg/dL High 8.5-10.1 [facility] Comment on above: Performed By: #### L 501.5200, L501.2300, L500.4050, L100.0100 ####[facility] [address] [place], [address] Chloride [Moles/Vol] 100 mmol/L Normal 98-107 [facility] Comment on above: Performed By: #### L 501.5200, L501.2300, L500.4050, L100.0100 ####[facility] [address] [place], [address] CO2 [Moles/Vol] 25.0 mmol/L Normal 21.0-32.0 [facility] Comment on above: Performed By: #### L 501.5200, L501.2300, L500.4050, L100.0100 ####[facility] [address] [place], [address] Creatinine [Mass/Vol] 1.08 mg/dL High 0.55-1.02 [facility] Comment on above: Result Comment: The validity of the calculated GFR GFRAA in patients over 70 years has not been determined. Clinical correlation is essential. Performed By: #### L 501.5200, L501.2300, L500.4050, L100.0100 ####[facility] [address] [place], [address] ECRCL 52.31 ml/min Normal [facility] Comment on above: Performed By: #### L 501.5200, L501.2300, L500.4050, L100.0100 ####[facility] [address] [place], [address] EST GFR - AA 64 mL/min Normal >60 [facility] Comment on above: Result Comment: Afri can Nigerien GFR Calc Performed By: #### L 501.5200, L501.2300, L500.4050, L100.0100 ####[facility] [address] [place], [address] GAP 13 Normal 5-15 [facility] Comment on above: Performed By: #### L 501.5200, L501.2300, L500.4050, L100.0100 ####[facility] [address] [place], [address] GFR/1.73 sq M.predicted among non-blacks MDRD (S/P/Bld) [Vol rate/Area] 53 mL/min/{1.73_m2} Low >60 [facility] Comment on above: Result Comment: Non- GFR Calc Performed By: #### L 501.5200, L501.2300, L500.4050, L100.0100 ####[facility] [address] [place], [address] Globulin (S) [Mass/Vol] 4.6 g/dL High 2.2-4.2 [facility] Comment on above: Performed By: #### L 501.5200, L501.2300, L500.4050, L100.0100 ####[facility] [address] [place], [address] Glucose [Mass/Vol] 352 mg/dL High 74-106 [facility] Comment on above: Result Comment: Gluc ose result greater than or equal to 200 mg/dL suggests DIABETES MELLITUS per A.D.A. criteria. Performed By: #### L 501.5200, L501.2300, L500.4050, L100.0100 ####[facility] [address] [place], [address] Potassium [Moles/Vol] 4.4 mmol/L Normal 3.5-5.1 [facility] Comment on above: Performed By: #### L 501.5200, L501.2300, L500.4050, L100.0100 ####[facility] [address] [place], [address] Sodium [Moles/Vol] 137 mmol/L Normal 136-145 [facility] Comment on above: Performed By: #### L 501.5200, L501.2300, L500.4050, L100.0100 ####[facility] [address] [place], [address] T PROT 8.4 g/dL High 6.4-8.2 [facility] Comment on above: Performed By: #### L 501.5200, L501.2300, L500.4050, L100.0100 ####[facility] [address] [place], [address] Urea nitrogen [Mass/Vol] 19 mg/dL High 7-18 [facility] Comment on above: Performed By: #### L 501.5200, L501.2300, L500.4050, L100.0100 ####[facility] [address] [place], [place], [address] Eosinophil percentageOrdered By: Polly Herr on 04-30-2024 Eosinophils/100 WBC (Bld) 0.0 % Normal 0-5 [facility] Comment on above: Performed By: #### L 501.5200, L501.2300, L500.4050, L100.0100 ####[facility] [address] [place], [address] Erythrocyte distribution wid th (RBC) [Ratio]Ordered By: Polly Herr on 04-30-2024 Erythrocyte distribution width (RBC) [Entitic vol] 43.2 fL 35.1-43.9 [facility] Erythrocyte distribution wid th ratioOrdered By: Polly Herr on 04-30-2024 Erythrocyte distribution width (RBC) [Ratio] 13.3 % Normal 11.6-14.6 [facility] Comment on above: Performed By: #### L 501.5200, L501.2300, L500.4050, L100.0100 ####[facility] [address] [place], [place], [address] Estimated glomerular filtrat ion rate (GFR) AmericanOrdered By: Polly Herr on 04-30-2024 Estimated GFR (MDRD) Amer 64 mL/min >60 [facility] Comment on above: GFR Calc Estimation of creatinine keo aranceOrdered By: Polly Herr on 04-30-2024 Estimated Creatinine Clearance Calc 52.31 ml/min [facility] Glomerular filtration rate ( GFR) estimationOrdered By: Polly Herr on 04-30-2024 Estimated GFR (MDRD) Non-Af Amer 53 mL/min Low >60 [facility] Comment on above: Non- GFR Calc Glucose measurementOrdered B y: Polly Herr on 04-30-2024 Glucose [Mass/Vol] 352 mg/dL High 74-106 [facility] Comment on above: Glucose result great er than or equal to 200 mg/dLsuggests DIABETES MELLITUS per A.D.A. criteria. [facility] deOrdered By: Nathan Torres on 04-30-2024 Bedside Glucose (Misc Panel) 307 mg/dL High 74-106 [facility] Comment on above: MANAGEMENT OF PATIEN T CARE PER NURSING PROTOCOL Hemoglobin measurementOrdere d By: Polly Herr on 04-30-2024 Hemoglobin (Bld) [Mass/Vol] 16.3 g/dL High 12.0-15.0 [facility] Comment on above: Performed By: #### L 501.5200, L501.2300, L500.4050, L100.0100 ####[facility] [address] [place], [place], [id number] Immature granulocytes/100 WB C Auto (Bld)Ordered By: Polly Herr on 04-30-2024 Immature granulocytes/100 WBC (Bld) 1.200 % High 0.0-0.9 [facility] Comment on above: IG% - Immature Granu locytes (promyelocytes, myelocytes and metamyelocytes) > 1% indicates that a LEFT SHIFT is Present. Laboratory - Chemistry and C hemistry - challengeOrdered By: Polly Herr on 04-30-2024 AST [Catalytic activity/Vol] 15 U/L 15-37 [facility] Lymphocytes Auto (Unsp spec) [#/Vol]Ordered By: Polly Herr on 04-30-2024 Lymphocytes (Bld) [#/Vol] 1.26 10*3/uL 0.83-4.51 [facility] MCV (mean corpuscular volume ) determinationOrdered By: Polly Herr on 04-30-2024 MCV (RBC) [Entitic vol] 88.9 fL Normal 81-99 [facility] Comment on above: Performed By: #### L 501.5200, L501.2300, L500.4050, L100.0100 ####[facility] [address] [place], [place], [id number] Magnesiumon 04-30-2024 Magnesium [Mass/Vol] 2.1 mg/dL Normal 1.6-2.6 [facility] Comment on above: Performed By: #### L 501.5200, L501.2300, L500.4050, L100.0100 ####[facility] [address] [place], [address] Magnesium measurementOrdered By: Polly Herr on 04-30-2024 Magnesium [Mass/Vol] 2.1 mg/dL 1.6-2.6 [facility] Mean corpuscular hemoglobin (MCH) determinationOrdered By: Polly Herr on 04-30-2024 MCH (RBC) [Entitic mass] 29.1 pg Normal 27.0-32.0 [facility] Comment on above: Performed By: #### L 501.5200, L501.2300, L500.4050, L100.0100 ####[facility] [address] [place], [address] Mean corpuscular hemoglobin concentration (MCHC) determinationOrdered By: Polly Herr on 04-30-2024 MCHC (RBC) [Mass/Vol] 32.7 g/dL Normal 32-36 [facility] Comment on above: Performed By: #### L 501.5200, L501.2300, L500.4050, L100.0100 ####[facility] [address] [place], [address] Mean platelet volume determi nationOrdered By: Polly Herr on 04-30-2024 Platelet mean volume (Bld) [Entitic vol] 10.6 fL Normal 6.2-12.0 [facility] Comment on above: Performed By: #### L 501.5200, L501.2300, L500.4050, L100.0100 ####[facility] [address] [place], [address] Monocyte percentageOrdered B y: Polly Herr on 04-30-2024 Monocytes/100 WBC (Bld) 0.5 % Normal 0-10 [facility] Comment on above: Performed By: #### L 501.5200, L501.2300, L500.4050, L100.0100 ####[facility] [address] [place], [address] Neutrophil percentageOrdered By: Polly Herr on 04-30-2024 Neutrophils/100 WBC (Bld) 90.6 % High 47-70 [facility] Comment on above: Performed By: #### L 501.5200, L501.2300, L500.4050, L100.0100 ####[facility] [address] [place], [address] Nucleated red blood cell per centageOrdered By: Polly Herr on 04-30-2024 Nucleated RBC/100 WBC (Bld) [Ratio] 0 % 0-5 [facility] Phosphoruson 04-30-2024 Phosphate [Mass/Vol] 3.7 mg/dL Normal 2.5-4.9 [facility] Comment on above: Performed By: #### L 501.5200, L501.2300, L500.4050, L100.0100 ####[facility] [address] [place], [address] Phosphorus measurementOrdere d By: Polly Herr on 04-30-2024 Phosphorus Level 3.7 mg/dL 2.5-4.9 [facility] Platelet countOrdered By: Mane Herr on 04-30-2024 Platelets (Bld) [#/Vol] 328 10*3/uL Normal 150-450 [facility] Comment on above: Performed By: #### L 501.5200, L501.2300, L500.4050, L100.0100 ####[facility] [address] [place], [address] Potassium measurementOrdered By: Polly Herr on 04-30-2024 Potassium [Moles/Vol] 4.4 mmol/L 3.5-5.1 [facility] Serum anion gap measurementO rdered By: Polly Herr on 04-30-2024 Anion gap [Moles/Vol] 13 mmol/L 5-15 [facility] Serum globulin measurementOr dered By: Polly Herr on 04-30-2024 Globulin (S) [Mass/Vol] 4.6 g/dL High 2.2-4.2 [facility] Serum or plasma alanine nova otransferase (ALT) measurementOrdered By: Polly Herr on 04-30-2024 ALT [Catalytic activity/Vol] 19 U/L 13-56 [facility] Serum or plasma albumin betsy urement (mass/volume)Ordered By: Polly Herr on 04-30-2024 Albumin [Mass/Vol] 3.8 g/dL 3.2-5.0 [facility] Serum or plasma alkaline maritza sphatase measurementOrdered By: Polly Herr on 04-30-2024 ALP [Catalytic activity/Vol] 116 U/L 45-117 [facility] Serum or plasma calcium betsy urement (mass/volume)Ordered By: Polly Herr on 04-30-2024 Calcium [Mass/Vol] 10.4 mg/dL High 8.5-10.1 [facility] Serum or plasma creatinine m easurement (mass/volume)Ordered By: Polly Herr on 04-30-2024 Creatinine [Mass/Vol] 1.08 mg/dL High 0.55-1.02 [facility] Comment on above: The validity of the calculated GFR & GFRAA in patients over 70 years has not been determined. Clinical correlation is essential. Serum or plasma urea nitroge n measurement (mass/volume)Ordered By: Polly Herr on 04-30-2024 Urea nitrogen [Mass/Vol] 19 mg/dL High 7-18 [facility] Sodium levelOrdered By: Neto Herr on 04-30-2024 Sodium [Moles/Vol] 137 mmol/L 136-145 [facility] Stress Reporton 04-30-2024 Stress Report [facility] Cardi[facility] Services [address] [place] [address] MR#: [id number] Acct: [id number] Name: FELICITAS ALCANTARA Rep #: [id number] : 1950 73 From: Delgado Cruz MD [...] than 70%. This note was generated with Dragon dictation software. It may contain incorrect words, spelling, and punctuation that were not noted in checking the note before signing. 04/30/24 1151 Date Delgado Cruz MD CC: Dr. Polly Lomeli DO; Dr. Nathan Torres DO; Dr. Harish Noel MD; Dr. Sly Blanco DO Date Dictated: 04/30/24 1146 Date Transcribed: 04/30/24 114 Mold Car Pusher: NN Signed Normal [facility] Total proteinOrdered By: Frank Herr on 04-30-2024 Protein [Mass/Vol] 8.4 g/dL High 6.4-8.2 [facility] White blood cell (WBC) count Ordered By: Polly Herr on 04-30-2024 WBC (Bld) [#/Vol] 17.7 10*3/uL High 4.4-11.0 [facility] Comment on above: Performed By: #### L 501.5200, L501.2300, L500.4050, L100.0100 ####[facility] [address] [place], [address] 12 Lead EKGon 04-29-2024 12 Lead EKG [facility] Cardiovascular Services [address] [place] [address] 12 Lead EKG 04/30/24 0528 MR#: [id number] Acct: [id number] Name: FELICITAS ALCANTARA Rep #: [id number] : 1950 73 From: Delgado Cruz MD Attending Dr: Dr. Nathan Torres DO Status: DIS RUBINA Ordering Dr: Polly Lomeli DO Date: 04/29/24 Location: [facility] Sex: F C Admitted: [...] bundle branch block Abnormal ECG Confirmed by ADELA CRUZ MD ([id number]), editor dictionary ALLA LAINEZ ([id number]) on 05/01/2024 1:04:01 PM Referred By: Sly Blanco Confirmed By: ADELA CRUZ MD 05/01/24 1304 Date Delgado Cruz MD CC: Dr. Polly Lomeli DO; Dr. Nathan Torres DO; Dr. Harish Noel MD; Dr. Sly Blanco DO Signed Normal [facility] 12 Lead EKG [facility] Cardiovascular Services [address] [place] [address] 12 Lead EKG 04/29/24 1556 MR#: [id number] Acct: [id number] Name: FELICITAS ALCATNARA Rep #: [id number] : 1950 73 From: Delgado Cruz MD Attending Dr: Dr. Nathan Torres DO Status: DIS RUBINA Ordering Dr: Sly Blanco DO Date: 04/29/24 Location: [facility] Sex: F C Admitted: [...] bundle branch block Abnormal ECG Confirmed by ADELA CRUZ MD ([id number]), editor dictionary ALLA LAINEZ ([id number]) on 05/01/2024 1:00:07 PM Referred By: Sly Blanco Confirmed By: ADELA CRUZ MD 05/01/24 1300 Date Delgado Cruz MD CC: Dr. Nathan Torres DO; Dr. Harish Noel MD; Dr. Sly Blanco DO Signed Normal [facility] Arterial patency Wrist arter y --pre arterial punctureOrdered By: Polly Herr on 04-29-[address] [facility] BNP (brain natriuretic pepti de measurement)Ordered By: Sly Blanco on 04-29-2024 Natriuretic peptide B (Bld) [Mass/Vol] 161.4 pg/mL High 0-100 [facility] BNP,B-Type NATRIURETIC PEPTI Yahaira 04-29-2024 Natriuretic peptide B (Bld) [Mass/Vol] 161.4 pg/mL High 0-100 [facility] Comment on above: Performed By: #### L 100.0100, L500.2500, L300.8000, L501.4020 #### [facility] [address] [place], [address] Base excess Calc (BldV) [Mol es/Vol]Ordered By: Polly Herr on 04-29-2024 Blood Gas Base Excess 4 mmol/L High -2-2 [facility] Basic Metabolic Profile (BMP )on 04-29-2024 BUN/CRE 18.2 RATIO Normal 10-20 [facility] Comment on above: Performed By: #### L 100.0100, L500.2500, L300.8000, L501.4020 #### [facility] [address] [place], [address] CA,Total 9.6 mg/dL Normal 8.5-10.1 [facility] Comment on above: Performed By: #### L 100.0100, L500.2500, L300.8000, L501.4020 #### [facility] [address] [place], [address] Chloride [Moles/Vol] 101 mmol/L Normal 98-107 [facility] Comment on above: Performed By: #### L 100.0100, L500.2500, L300.8000, L501.4020 #### [facility] [address] [place], [address] CO2 [Moles/Vol] 26.0 mmol/L Normal 21.0-32.0 [facility] Comment on above: Performed By: #### L 100.0100, L500.2500, L300.8000, L501.4020 #### [facility] [address] [place], [address] Creatinine [Mass/Vol] 0.82 mg/dL Normal 0.55-1.02 [facility] Comment on above: Result Comment: The validity of the calculated GFR GFRAA in patients over 70 years has not been determined. Clinical correlation is essential. Performed By: #### L 100.0100, L500.2500, L300.8000, L501.4020 #### [facility] [address] [place], [address] ECRCL 70.51 ml/min Normal [facility] Comment on above: Performed By: #### L 100.0100, L500.2500, L300.8000, L501.4020 #### [facility] [address] [place], [address] EST GFR - AA 88 mL/min Normal >60 [facility] Comment on above: Result Comment: Afri can Nigerien GFR Calc Performed By: #### L 100.0100, L500.2500, L300.8000, L501.4020 #### [facility] [address] [place], [address] GAP 9 Normal 5-15 [facility] Comment on above: Performed By: #### L 100.0100, L500.2500, L300.8000, L501.4020 #### [facility] [address] [place], [address] GFR/1.73 sq M.predicted among non-blacks MDRD (S/P/Bld) [Vol rate/Area] 73 mL/min/{1.73_m2} Normal >60 [facility] Comment on above: Result Comment: Non- GFR Calc Performed By: #### L 100.0100, L500.2500, L300.8000, L501.4020 #### [facility] [address] [place], [address] Glucose [Mass/Vol] 148 mg/dL High 74-106 [facility] Comment on above: Result Comment: Fast ing Glucose result greater than or equal to 126 mg/dL suggests DIABETES MELLITUS per A.D.A. criteria. Performed By: #### L 100.0100, L500.2500, L300.8000, L501.4020 #### [facility] [address] [place], [address] Potassium [Moles/Vol] 3.8 mmol/L Normal 3.5-5.1 [facility] Comment on above: Performed By: #### L 100.0100, L500.2500, L300.8000, L501.4020 #### [facility] [address] [place], [address] Sodium [Moles/Vol] 136 mmol/L Normal 136-145 [facility] Comment on above: Performed By: #### L 100.0100, L500.2500, L300.8000, L501.4020 #### [facility] [address] [place], [address] Urea nitrogen [Mass/Vol] 15 mg/dL Normal 7-18 [facility] Comment on above: Performed By: #### L 100.0100, L500.2500, L300.8000, L501.4020 #### [facility] [address] [place], [address] Bilirubin Test strip Ql (U)O rdered By: Sly Blanco on 04-29-2024 Bilirubin Ql (U) Negative Negative [facility] Blood Gases by CPSon 025 WAGNER TEST Positive Normal [facility] Comment on above: Performed By: #### L 100.0100, L500.2500, L300.8000, L501.4020 #### [facility] [address] [place], [address] Base excess Calc (Bld) [Moles/Vol] 4 mmol/L High -2 to +2 [facility] Comment on above: Performed By: #### L 100.0100, L500.2500, L300.8000, L501.4020 #### [facility] [address] [place], [address] Blood Gas Type ART Normal [facility] Comment on above: Performed By: #### L 100.0100, L500.2500, L300.8000, L501.4020 #### [facility] [address] [place], [address] CO2 [Moles/Vol] 28 mmol/L Normal [facility] Comment on above: Performed By: #### L 100.0100, L500.2500, L300.8000, L501.4020 #### [facility] [address] [place], [address] HCO3 (Bld) [Moles/Vol] 27.2 mmol/L High 22-26 [facility] Comment on above: Performed By: #### L 100.0100, L500.2500, L300.8000, L501.4020 #### [facility] [address] [place], [address] Mode Not entered [facility] Comment on above: Performed By: #### L 100.0100, L500.2500, L300.8000, L501.4020 #### [facility] [address] [place], [address] O2 Delivery Dev Room Air Normal [facility] Comment on above: Performed By: #### L 100.0100, L500.2500, L300.8000, L501.4020 #### [facility] [address] [place], [address] pCO2 32.8 mmHg Low 35-45 [facility] Comment on above: Performed By: #### L 100.0100, L500.2500, L300.8000, L501.4020 #### [facility] [address] [place], [address] pH (Bld) 7.53 [pH] High 7.35-7.45 [facility] Comment on above: Performed By: #### L 100.0100, L500.2500, L300.8000, L501.4020 #### [facility] [address] [place], [address] PO2 60 mmHG Low 75-100 [facility] Comment on above: Performed By: #### L 100.0100, L500.2500, L300.8000, L501.4020 #### [facility] [address] [place], [address] SITE L Radial Normal [facility] Comment on above: Performed By: #### L 100.0100, L500.2500, L300.8000, L501.4020 #### [facility] [address] [place], [address] SO2 94 Low 95-99 [facility] Comment on above: Performed By: #### L 100.0100, L500.2500, L300.8000, L501.4020 #### [facility] [address] [place], [address] Blood bicarbonate measuremen tOrdered By: Polly Herr on 04-29-2024 Blood Gas Bicarbonate Actual 27.2 mmol/L High 22-26 [facility] CBC W/Diff, Automatedon 04-18 Absolute Lymph 1.79 X10 3/uL Normal 0.83-4.51 [facility] Comment on above: Performed By: #### L 100.0100, L500.2500, L300.8000, L501.4020 #### [facility] [address] [place], [address] Absolute Neut 11.7 X10 3/uL High 2.0-7.7 [facility] Comment on above: Performed By: #### L 100.0100, L500.2500, L300.8000, L501.4020 #### [facility] [address] [place], [address] Basophils/100 WBC (Bld) 0.5 % Normal 0-1 [facility] Comment on above: Performed By: #### L 100.0100, L500.2500, L300.8000, L501.4020 #### [facility] [address] [place], [address] Eosinophils/100 WBC (Bld) 2.3 % Normal 0-5 [facility] Comment on above: Performed By: #### L 100.0100, L500.2500, L300.8000, L501.4020 #### [facility] [address] [place], [address] Erythrocyte distribution width (RBC) [Ratio] 13.2 % Normal 11.6-14.6 [facility] Comment on above: Performed By: #### L 100.0100, L500.2500, L300.8000, L501.4020 #### [facility] [address] [place], [address] Hematocrit (Bld) [Volume fraction] 47.7 % High 37-47 [facility] Comment on above: Performed By: #### L 100.0100, L500.2500, L300.8000, L501.4020 #### [facility] [address] [place], [address] Hemoglobin (Bld) [Mass/Vol] 15.2 g/dL High 12.0-15.0 [facility] Comment on above: Performed By: #### L 100.0100, L500.2500, L300.8000, L501.4020 #### [facility] [address] [place], [address] IG% 0.600 Normal 0.0-0.9 [facility] Comment on above: Result Comment: IG% - Immature Granulocytes (promyelocytes, myelocytes and metamyelocytes) > 1% indicates that a LEFT SHIFT is Present. Performed By: #### L 100.0100, L500.2500, L300.8000, L501.4020 #### [facility] [address] [place], [address] Lymphocytes/100 WBC (Bld) 12.1 % Low 19-41 [facility] Comment on above: Performed By: #### L 100.0100, L500.2500, L300.8000, L501.4020 #### [facility] [address] [place], [address] MCH (RBC) [Entitic mass] 28.5 pg Normal 27.0-32.0 [facility] Comment on above: Performed By: #### L 100.0100, L500.2500, L300.8000, L501.4020 #### [facility] [address] [place], [address] MCHC (RBC) [Mass/Vol] 31.9 g/dL Low 32-36 [facility] Comment on above: Performed By: #### L 100.0100, L500.2500, L300.8000, L501.4020 #### [facility] [address] [place], [address] MCV (RBC) [Entitic vol] 89.5 fL Normal 81-99 [facility] Comment on above: Performed By: #### L 100.0100, L500.2500, L300.8000, L501.4020 #### [facility] [address] [place], [address] Monocytes/100 WBC (Bld) 4.9 % Normal 0-10 [facility] Comment on above: Performed By: #### L 100.0100, L500.2500, L300.8000, L501.4020 #### [facility] [address] [place], [address] Neutrophils/100 WBC (Bld) 79.6 % High 47-70 [facility] Comment on above: Performed By: #### L 100.0100, L500.2500, L300.8000, L501.4020 #### [facility] [address] [place], [address] Nucleated RBC (Bld) [#/Vol] 0 10*3/uL Normal 0-5 [facility] Comment on above: Performed By: #### L 100.0100, L500.2500, L300.8000, L501.4020 #### [facility] [address] [place], [address] Platelet mean volume (Bld) [Entitic vol] 10.7 fL Normal 6.2-12.0 [facility] Comment on above: Performed By: #### L 100.0100, L500.2500, L300.8000, L501.4020 #### [facility] [address] [place], [address] Platelets (Bld) [#/Vol] 291 10*3/uL Normal 150-450 [facility] Comment on above: Performed By: #### L 100.0100, L500.2500, L300.8000, L501.4020 #### [facility] [address] [place], [address] RBC (Bld) [#/Vol] 5.33 10*6/uL Normal 4.2-5.4 [facility] Comment on above: Performed By: #### L 100.0100, L500.2500, L300.8000, L501.4020 #### [facility] [address] [place], [address] RDW SD 43.5 fl Normal 35.1-43.9 [facility] Comment on above: Performed By: #### L 100.0100, L500.2500, L300.8000, L501.4020 #### [facility] [address] [place], [address] WBC (Bld) [#/Vol] 14.8 10*3/uL High 4.4-11.0 [facility] Comment on above: Performed By: #### L 100.0100, L500.2500, L300.8000, L501.4020 #### [facility] [address] [place], [address] Chest 1 View (Portable)on Chest 1 View (Portable) [facility] Imaging Services [address] [place] [address] Chest 1 View (Portable) MR#: [id number] Acct: [id number] Name: FELICITAS ALCANTARA Rep #: [id number] : 1950 F 73 From: Aviva Joyner nd, MD PCP: Dr. Harish Noel MD Status: [facility] ER Study: Chest 1 View (Portable) Date of Exam: 04/29/24 Exam# [id number] Ordering Dr: Sly Blanco DO PROCEDURE: CHEST [...] unremarkable chest radiograph. Reading Location: [facility] CC: Dr. Harish Noel MD; Dr. Sly Blanco DO Mold Car Pusher: Signed Normal [facility] D-Dimer Quantitative (DVT/PE )on 04-29-2024 D-DIMER QUANT < 0.27 Low 0.27-0.49 [facility] Comment on above: Result Comment: NORM AL D-Dimer level (<0.50) indicates no DVT or PE. Performed By: #### L 100.0100, L500.2500, L300.8000, L501.4020 #### [facility] [address] [place], [address] D-dimer measurement for deep venous thrombosisOrdered By: Sly Blanco on 04-29-2024 D-Dimer Quantitative (PE/DVT) < 0.27 FEU/ug/m Low 0.27-0.49 [facility] Comment on above: NORMAL D-Dimer level (<0.50) indicates no DVT or PE. Emergency Department Summary on 04-29-2024 Emergency Department Summary [facility] Medical Records Department [address] [place] [address] Emergency Department Summary 04/29/24 MR#: [id number] Acct: [id number] Name: FELICITAS ALCANTARA Rep #: [id number] : 1950 73 From: Sly Blanco DO PCP: Dr. Harish Noel MD Status:ADM RUBINA Location: [address] History of Present Illness Chief Complaint: Shortness of Breath [facility] Medical History History of left heart catheterization (LHC) ( 09/05/21) Abnormal nuclear stress test Dyspnea on exertion Mass of lip Elevated WBC count History of DVT (deep vein thrombosis) Presence of stent in coronary artery ( 04/10/16) History of non-ST elevation myocardial infarction (NSTEMI) Cardiogenic shock Type 2 diabetes mellitus Atherosclerotic heart disease of [place] coronary artery without angina pectoris Essential hypertension [...] stent, hyperlip (more content not included)... Normal [facility] Epithelial cells.squamous LM Ql (Urine sed)Ordered By: Sly Blanco on 04-29-2024 Epithelial cells.squamous LM.HPF (Urine sed) [#/Area] 0 /[HPF] 5-10 [facility] Glucose Ql (U)Ordered By: Giovanny Blanco on 04-29-2024 Urine Glucose (UA) Normal mg/dl Normal [facility] H AND P Exam - Hospitaliston 04-29-2024 H&P Exam - Hospitalist [facility] Medical Records Department [address] [place] [address] H P Exam - Hospitalist 04/29/241935 MR#: [id number] Acct: [id number] Name: FELICITAS ALCANTARA Rep #: [id number] : 1950 73 From: Polly Lomeli DO PCP: Dr. Harish Noel MD Status:ADM RUBINA Location: [address] - General General Date of Admission: 04/29/24 [...] (hives), CTS and OA who presents to [facility] ER complaining of chest pain, SOB [...] expected to be less than 2 midnights. [facility] Medical History History of left heart catheterization (LHC) ( 09/05/21) Abnormal nuclear stress test Dyspnea on exertion Mass of lip Elevated WBC count History of DVT (deep vein thrombosis) Presence of stent in coronary artery ( 04/10/16) History of non-ST elevation myocardial infarction (NSTEMI) Cardiogenic shock Type 2 diabetes mellitus Atherosclerotic heart disease of [place] coronary artery without angina pectoris Essential hypertension [...] of hear (more content not included)... Normal [facility] Hemoglobin A1con 04-29-2024 HbA1c (Bld) [Mass fraction] 9.4 % High 3.8-5.6 [facility] Comment on above: Result Comment: Norm al < 5.7 % Prediabetic 5.7 - 6.4 % Diabetic >or= 6.5 % Please note range changes. Performed By: #### L 100.0100, L500.2500, L300.8000, L501.4020 #### [facility] [place], [address] Hemoglobin A1c percentageOrd ered By: Polly Herr on 04-29-2024 HbA1c (Bld) [Mass fraction] 9.4 % High 3.8-5.6 [facility] Comment on above: Normal < 5.7 % Predi abetic 5.7 - 6.4 % Diabetic >or= 6.5 % Please note range changes. High density lipoprotein (HD L) measurementOrdered By: Polly Herr on 04-29-2024 Cholesterol in HDL [Mass/Vol] 64 mg/dL >40 [facility] Comment on above: The drugs N-Acetylcy steine and Metamizole may falsely depress this assay. Reference Range HDL <40 mg/dL Low HDL Cholesterol HDL >or= 60 mg/dL High HDL Cholesterol Influenza virus A and B and SARS-CoV-2 (COVID-19) and Respiratory syncytial virus RNAOrdered By: Sly Blanco on 04-29-2024 SARS-CoV-2 (COVID-19) RNA SLOAN+probe Ql (Unsp spec) [facility] Ketones Test strip Ql (U)Ord ered By: Sly Blanco on 04-29-2024 Ketones Ql (U) Negative Negative [facility] L501.4020on 04-29-2024 TROPONIN-I HS 17 pg/mL Normal 3.0-54.0 [facility] Comment on above: Order Comment: 'TROP ' Serial specimen #1, #2 or #3: 3 Result Comment: Plea se Note: New Test Units and Gender Specific Reference Ranges. For more information see Policy Stat Procedure [facility] High Sensitivity Troponin (TNIH) and attachments. Performed By: #### L 501.4020 ####[facility] [address] [place], [address] TROPONIN-I HS 14 pg/mL Normal 3.0-54.0 [facility] Comment on above: Result Comment: Plea se Note: New Test Units and Gender Specific Reference Ranges. For more information see Policy Stat Procedure [facility] High Sensitivity Troponin (TNIH) and attachments. Performed By: #### L 100.0100, L500.2500, L300.8000, L501.4020 #### [facility] [address] [place], [address] L501.5425on 04-29-2024 TROPONIN-I HS 12 pg/mL Normal 3.0-54.0 [facility] Comment on above: Order Comment: 'TROP ' Serial specimen #1, #2 or #3: 1 Result Comment: Plea se Note: New Test Units and Gender Specific Reference Ranges. For more information see Policy Stat Procedure [facility] High Sensitivity Troponin (TNIH) and attachments. Performed By: #### L 100.0100, L500.2500, L300.8000, L501.4020 #### [facility] [address] [place], [address] Lipid Profileon 04-29-2024 Cholesterol [Mass/Vol] 197 mg/dL Normal 200 [facility] Comment on above: Result Comment: <200 mg/dL Desirable 200-240 mg/dL Borderline >240 mg/dL High Risk Performed By: #### L 100.0100, L500.2500, L300.8000, L501.4020 #### [facility] [address] [place], [address] Cholesterol in HDL [Mass/Vol] 64 mg/dL Normal [facility] Comment on above: Result Comment: The drugs N-Acetylcysteine and Metamizole may falsely depress this assay. Reference Range HDL <40 mg/dL Low HDL Cholesterol HDL >or= 60 mg/dL High HDL Cholesterol Performed By: #### L 100.0100, L500.2500, L300.8000, L501.4020 #### [facility] [address] [place], [address] Cholesterol in LDL [Mass/Vol] 102 mg/dL Normal 0-130 [facility] Comment on above: Performed By: #### L 100.0100, L500.2500, L300.8000, L501.4020 #### [facility] [address] [place], [address] Cholesterol in VLDL [Mass/Vol] 31 mg/dL Normal 5-40 [facility] Comment on above: Performed By: #### L 100.0100, L500.2500, L300.8000, L501.4020 #### [facility] [address] [place], [address] Triglyceride [Mass/Vol] 155 mg/dL Normal [facility] Comment on above: Result Comment: The drugs N-Acetylcysteine and Metamizole may falsely depress this assay. Serum Triglycerides Reference Interval Normal <150 mg/dL Borderline high 150 - 199 mg/dL High 200 - 499 mg/dL Very High > or = 500 mg/dL Performed By: #### L 100.0100, L500.2500, L300.8000, L501.4020 #### [facility] [address] [place], [address] Low density lipoprotein (LDL ) cholesterol measurementOrdered By: Polly Herr on 04-29-2024 Cholesterol in LDL [Mass/Vol] 102 mg/dL 0-130 [facility] M100.678on 04-29-2024 M100.678 SARS-CoV-2 (COVID 19 ) Negative INFLUENZA A Negative INFLUENZA B Negative RSV PCR Negative Normal [facility] Comment on above: Performed By: #### M 100.678 ####[facility] [address] [place], [place], [id number] Microscopic analysis of urin e for red blood cells (RBC)Ordered By: Sly Blanco on 04-29-2024 Urine RBC 0-5 SEEN /hpf 0-5 [facility] Mucus LM Ql (Urine sed)Order ed By: Sly Blanco on 04-29-2024 Mucus Ql (Urine sed) 0 SEEN /hpf [facility] Nitrite Test strip Ql (U)Ord ered By: Sly Blanco on 04-29-2024 Nitrite Ql (U) Negative Negative [facility] No Panel InformationOrdered By: Polly Herr on 04-29-2024 Blood Gas Sample Site L Radial [facility] Blood Gas Specimen Type ART W [facility] Blood Gas Vent Mode Not entered [facility] Oxygen Delivery Device Room Air [facility] Oxygen saturation measuremen tOrdered By: Polly Herr on 04-29-2024 Blood Gas Oxygen Saturation 94 % Low 95-99 [facility] Partial pressure of carbon d ioxide measurementOrdered By: Polly Herr on 04-29-2024 Arterial Blood Partial Pressure CO2 32.8 mmHg Low 35-45 [facility] Partial pressure of oxygen m easurementOrdered By: Polly Herr on 04-29-2024 Arterial Blood Partial Pressure O2 60 mmHG Low 75-100 [facility] Protein Test strip Ql (U)Ord ered By: Sly Blanco on 04-29-2024 Protein Ql (U) Negative Negative [facility] Serum or plasma cholesterol measurement (mass/volume)Ordered By: Polly Herr on 04-29-2024 Cholesterol [Mass/Vol] 197 mg/dL <200 [facility] Comment on above: <200 mg/dL Desirable 200-240 mg/dL Borderline >240 mg/dL High Risk TSH QnOrdered By: Polly vasquez on 04-29-2024 Thyroid Stimulating Hormone (TSH) 3.480 uIU/mL 0.358-3.740 [facility] Thyroid Stim Hormone (TSH)on 04-29-2024 TSH 3.480 uIU/mL Normal 0.358-3.740 [facility] Comment on above: Performed By: #### L 100.0100, L500.2500, L300.8000, L501.4020 #### [facility] [address] [place], [place], [id number] Total carbon dioxide measure mentOrdered By: Polly Herr on 04-29-2024 Blood Gas Total CO2 28 mmol/L [facility] Triglycerides measurementOrd ered By: Polly Herr on 04-29-2024 Triglyceride [Mass/Vol] 155 mg/dL <199 [facility] Comment on above: The drugs N-Acetylcy steine and Metamizole may falsely depress this assay.Serum Triglycerides Reference Interval Normal <150 mg/dL Borderline high 150 - 199 mg/dL High 200 - 499 mg/dL Very High > or = 500 mg/dL Troponin IOrdered By: Polly Herr on 04-29-2024 Troponin I High Sensitivity 17 pg/mL 3.0-54.0 [facility] Comment on above: Please Note: [place] t Units and Gender Specific Reference Ranges. For more information see Policy Stat Procedure [facility] High Sensitivity Troponin (TNIH) and attachments. Urinalysis, Completeon 04-29 EPI,SQUAMOUS 0-5 SEEN Normal 5-10 [facility] Comment on above: Order Comment: COLLE CTOR TO SPECIFY Performed By: #### L 400.0001 ####[facility] [address] [place], [place], [id number] RBC 0-5 SEEN Normal 0-5 [facility] Comment on above: Order Comment: COLLE CTOR TO SPECIFY Performed By: #### L 400.0001 ####[facility] [address] [place], [address] WBC 0-5 SEEN Normal 0-5 [facility] Comment on above: Order Comment: COLLE CTOR TO SPECIFY Performed By: #### L 400.0001 ####[facility] [address] [place], [address] BACTERIA Normal None Seen [facility] Comment on above: Order Comment: CLEAN CATCH Result Comment: Canc elled via OM: Duplicate Order Performed By: #### L 100.0100, L500.2500, L300.8000, L501.4020 #### [facility] [address] [place], [address] BILIRUBIN URINE Normal Negative [facility] Comment on above: Order Comment: CLEAN CATCH Result Comment: Canc elled via OM: Duplicate Order Performed By: #### L 100.0100, L500.2500, L300.8000, L501.4020 #### [facility] [address] [place], [address] Clarity (U) Normal Clear [facility] Comment on above: Order Comment: CLEAN CATCH Result Comment: Canc elled via OM: Duplicate Order Performed By: #### L 100.0100, L500.2500, L300.8000, L501.4020 #### [facility] [address] [place], [address] Color (U) Normal Yellow [facility] Comment on above: Order Comment: CLEAN CATCH Result Comment: Canc elled via OM: Duplicate Order Performed By: #### L 100.0100, L500.2500, L300.8000, L501.4020 #### [facility] [address] [place], [address] EPI,SQUAMOUS Normal 5-10 [facility] Comment on above: Order Comment: CLEAN CATCH Result Comment: Canc elled via OM: Duplicate Order Performed By: #### L 100.0100, L500.2500, L300.8000, L501.4020 #### [facility] [address] [place], [address] GLUCOSE, UR Normal Normal [facility] Comment on above: Order Comment: CLEAN CATCH Result Comment: Canc elled via OM: Duplicate Order Performed By: #### L 100.0100, L500.2500, L300.8000, L501.4020 #### [facility] [address] [place], [address] KETONE UR Normal Negative [facility] Comment on above: Order Comment: CLEAN CATCH Result Comment: Canc elled via OM: Duplicate Order Performed By: #### L 100.0100, L500.2500, L300.8000, L501.4020 #### [facility] [address] [place], [address] LEUK ESTERASE Normal Negative [facility] Comment on above: Order Comment: CLEAN CATCH Result Comment: Canc elled via OM: Duplicate Order Performed By: #### L 100.0100, L500.2500, L300.8000, L501.4020 #### [facility] [address] [place], [address] Mucus Ql (Urine sed) Normal [facility] Comment on above: Order Comment: CLEAN CATCH Result Comment: Canc elled via OM: Duplicate Order Performed By: #### L 100.0100, L500.2500, L300.8000, L501.4020 #### [facility] [address] [place], [address] Nitrite Ql (U) Normal Negative [facility] Comment on above: Order Comment: CLEAN CATCH Result Comment: Canc elled via OM: Duplicate Order Performed By: #### L 100.0100, L500.2500, L300.8000, L501.4020 #### [facility] [address] [place], [address] OCCULT BLOOD-UR Normal Negative [facility] Comment on above: Order Comment: CLEAN CATCH Result Comment: Canc elled via OM: Duplicate Order Performed By: #### L 100.0100, L500.2500, L300.8000, L501.4020 #### [facility] [address] [place], [address] pH UR Normal 5.0 - 8.0 [facility] Comment on above: Order Comment: CLEAN CATCH Result Comment: Canc elled via OM: Duplicate Order Performed By: #### L 100.0100, L500.2500, L300.8000, L501.4020 #### [facility] [address] [place], [address] PROT DIPSTX Normal Negative [facility] Comment on above: Order Comment: CLEAN CATCH Result Comment: Canc elled via OM: Duplicate Order Performed By: #### L 100.0100, L500.2500, L300.8000, L501.4020 #### [facility] [address] [place], [address] RBC Normal 0-5 [facility] Comment on above: Order Comment: CLEAN CATCH Result Comment: Canc elled via OM: Duplicate Order Performed By: #### L 100.0100, L500.2500, L300.8000, L501.4020 #### [facility] [address] [place], [address] SP.GR. DIPSTX Normal 1.002-1.030 [facility] Comment on above: Order Comment: CLEAN CATCH Result Comment: Canc elled via OM: Duplicate Order Performed By: #### L 100.0100, L500.2500, L300.8000, L501.4020 #### [facility] [address] [place], [address] [facility] Comment on above: Order Comment: CLEAN CATCH Result Comment: Canc elled via OM: Duplicate Order Performed By: #### L 100.0100, L500.2500, L300.8000, L501.4020 #### [facility] [address] [place], [address] [facility] Comment on above: Order Comment: CLEAN CATCH Result Comment: Canc elled via OM: Duplicate Order Performed By: #### L 100.0100, L500.2500, L300.8000, L501.4020 #### [facility] [address] [place], [address] WBC Normal 0-5 [facility] Comment on above: Order Comment: CLEAN CATCH Result Comment: Canc elled via OM: Duplicate Order Performed By: #### L 100.0100, L500.2500, L300.8000, L501.4020 #### [facility] [address] [place], [address] BACTERIA 0 SEEN Normal None Seen [facility] Comment on above: Order Comment: COLLE CTOR TO SPECIFY Performed By: #### L 400.0001 ####[facility] [address] [place], [address] Mucus Ql (Urine sed) 0 SEEN Normal [facility] Comment on above: Order Comment: COLLE CTOR TO SPECIFY Performed By: #### L 400.0001 ####[facility] [address] [place], [address] Urine Drug Screen (VISTA)on 04-29-2024 AMPHETAMINES Normal <1000 ng/mL [facility] Comment on above: Result Comment: PT.D ISCHARGED, COULD NOT FIND A PLAIN YELLOW TOP/STERILE CUP URINE Performed By: #### L 100.0100, L500.2500, L300.8000, L501.4020 #### [facility] [address] [place], [address] BARBITIURATES Normal < 200 ng/mL [facility] Comment on above: Result Comment: PT.D ISCHARGED, COULD NOT FIND A PLAIN YELLOW TOP/STERILE CUP URINE Performed By: #### L 100.0100, L500.2500, L300.8000, L501.4020 #### [facility] [address] [facility] [address] BENZODIAZIPINE Normal < 200 ng/mL [facility] Comment on above: Result Comment: PT.D ISCHARGED, COULD NOT FIND A PLAIN YELLOW TOP/STERILE CUP URINE Performed By: #### L 100.0100, L500.2500, L300.8000, L501.4020 #### [facility] [address] [facility] [address] COCAINE Normal < 300 ng/mL [facility] Comment on above: Result Comment: PT.D ISCHARGED, COULD NOT FIND A PLAIN YELLOW TOP/STERILE CUP URINE Performed By: #### L 100.0100, L500.2500, L300.8000, L501.4020 #### [facility] [address] [facility] [address] [address] [facility] Comment on above: Result Comment: PT.D ISCHARGED, COULD NOT FIND A PLAIN YELLOW TOP/STERILE CUP URINE Performed By: #### L 100.0100, L500.2500, L300.8000, L501.4020 #### [facility] [address] [facility] [address] ECSTACY Normal < 500 ng/mL [facility] Comment on above: Result Comment: PT.D ISCHARGED, COULD NOT FIND A PLAIN YELLOW TOP/STERILE CUP URINE Performed By: #### L 100.0100, L500.2500, L300.8000, L501.4020 #### [facility] [address] [facility] [address] METHADONE Normal < 300 ng/mL [facility] Comment on above: Result Comment: PT.D ISCHARGED, COULD NOT FIND A PLAIN YELLOW TOP/STERILE CUP URINE Performed By: #### L 100.0100, L500.2500, L300.8000, L501.4020 #### [facility] [address] [facility] [address] OPIATES Normal < 300 ng/mL [facility] Comment on above: Result Comment: PT.D ISCHARGED, COULD NOT FIND A PLAIN YELLOW TOP/STERILE CUP URINE Performed By: #### L 100.0100, L500.2500, L300.8000, L501.4020 #### [facility] [address] [place], [address] PCP Normal < 25 ng/mL [facility] Comment on above: Result Comment: PT.D ISCHARGED, COULD NOT FIND A PLAIN YELLOW TOP/STERILE CUP URINE Performed By: #### L 100.0100, L500.2500, L300.8000, L501.4020 #### [facility] [address] [place], [address] THC Normal < 50 ng/mL [facility] Comment on above: Result Comment: PT.D ISCHARGED, COULD NOT FIND A PLAIN YELLOW TOP/STERILE CUP URINE Performed By: #### L 100.0100, L500.2500, L300.8000, L501.4020 #### [facility] [address] [place], [address] [address]DS PH Normal [facility] Comment on above: Result Comment: PT.D ISCHARGED, COULD NOT FIND A PLAIN YELLOW TOP/STERILE CUP URINE Performed By: #### L 100.0100, L500.2500, L300.8000, L501.4020 #### [facility] [address] [place], [address] Urine blood detectionOrdered By: Sly Blanco on 04-29-2024 Urine Occult Blood 10 /ul High Negative [facility] Urine clarityOrdered By: Kinjal Blanco on 04-29-2024 Clarity (U) Clear Clear [facility] Urine color determinationOrd ered By: Sly Blanco on 04-29-2024 Color (U) Straw Yellow [facility] Urine leukocyte esterase det ection by dipstickOrdered By: Sly Blanco on 04-29-2024 Leukocyte esterase Test strip Ql (U) 25 /ul High Negative [facility] Urine pHOrdered By: Sly sandra on 04-29-2024 pH (U) 8.0 [pH] 5.0 - 8.0 [facility] Urine sediment bacteria coun t by microscopy (number/high power field)Ordered By: Sly Blanco on 04-29-2024 Bacteria LM.HPF (Urine sed) [#/Area] 0 /[HPF] None Seen [facility] Urine specific gravity measu rementOrdered By: Sly Blanco on 04-29-2024 Specific gravity (U) [Rel density] 1.010 1.002-1.030 [facility] Urobilinogen Ql (U)Ordered B y: Sly Blanco on 04-29-2024 Urine Urobilinogen Normal mg/dl Normal [facility] Very low density lipoprotein (VLDL) cholesterol measurementOrdered By: Polly Herr on 04-29-2024 VLDL Cholesterol 31 mg/dL 5-40 [facility] White blood cell countOrdere d By: Sly Blanco on 04-29-2024 Urine WBC 0-5 SEEN /hpf 0-5 [facility] pH (Unsp spec)Ordered By: Mane Herr on 04-29-2024 Blood Gas pH 7.53 High 7.35-7.45 [facility] CBC W/Diff, Automatedon 11-0 Absolute Lymph 2.42 X10 3/uL Normal 0.83-4.51 [facility] Comment on above: Performed By: #### L 400.0001 #### [facility] [address] [place], [address] Absolute Neut 9.2 X10 3/uL High 2.0-7.7 [facility] Comment on above: Performed By: #### L 400.0001 #### [facility] [address] [facility] [place], [address] Basophils/100 WBC (Bld) 0.3 % Normal 0-1 [facility] Comment on above: Performed By: #### L 400.0001 #### [facility] [address] [place], [address] Eosinophils/100 WBC (Bld) 2.0 % Normal 0-5 [facility] Comment on above: Performed By: #### L 400.0001 #### [facility] [address] [place], [address] Erythrocyte distribution width (RBC) [Ratio] 13.1 % Normal 11.6-14.6 [facility] Comment on above: Performed By: #### L 400.0001 #### [facility] [address] [place], [address] Hematocrit (Bld) [Volume fraction] 44.4 % Normal 37-47 [facility] Comment on above: Performed By: #### L 400.0001 #### [facility] [address] [place], [address] Hemoglobin (Bld) [Mass/Vol] 14.1 g/dL Normal 12.0-15.0 [facility] Comment on above: Performed By: #### L 400.0001 #### [facility] [address] [place], [address] IG% 0.600 Normal 0.0-0.9 [facility] Comment on above: Result Comment: IG% - Immature Granulocytes (promyelocytes, myelocytes and metamyelocytes) > 1% indicates that a LEFT SHIFT is Present. Performed By: #### L 400.0001 #### [facility] [address] [place], [address] Lymphocytes/100 WBC (Bld) 18.9 % Low 19-41 [facility] Comment on above: Performed By: #### L 400.0001 #### [facility] [address] [place], [address] MCH (RBC) [Entitic mass] 29.4 pg Normal 27.0-32.0 [facility] Comment on above: Performed By: #### L 400.0001 #### [facility] [address] [place], [address] MCHC (RBC) [Mass/Vol] 31.8 g/dL Low 32-36 [facility] Comment on above: Performed By: #### L 400.0001 #### [facility] [address] [place], [address] MCV (RBC) [Entitic vol] 92.5 fL Normal 81-99 [facility] Comment on above: Performed By: #### L 400.0001 #### [facility] [address] [place], [address] Monocytes/100 WBC (Bld) 6.7 % Normal 0-10 [facility] Comment on above: Performed By: #### L 400.0001 #### [facility] [place], [address] Neutrophils/100 WBC (Bld) 71.5 % High 47-70 [facility] Comment on above: Performed By: #### L 400.0001 #### [facility] [address] [place], [address] Nucleated RBC (Bld) [#/Vol] 0 10*3/uL Normal 0-5 [facility] Comment on above: Performed By: #### L 400.0001 #### [facility] [address] [place], [address] Platelet mean volume (Bld) [Entitic vol] 10.8 fL Normal 6.2-12.0 [facility] Comment on above: Performed By: #### L 400.0001 #### [facility] [address] [place], [address] Platelets (Bld) [#/Vol] 305 10*3/uL Normal 150-450 [facility] Comment on above: Performed By: #### L 400.0001 #### [facility] [address] [place], [address] RBC (Bld) [#/Vol] 4.80 10*6/uL Normal 4.2-5.4 [facility] Comment on above: Performed By: #### L 400.0001 #### [facility] [address] [place], [address] RDW SD 44.4 fl High 35.1-43.9 [facility] Comment on above: Performed By: #### L 400.0001 #### [facility] [address] [place], [address] WBC (Bld) [#/Vol] 12.8 10*3/uL High 4.4-11.0 [facility] Comment on above: Performed By: #### L 400.0001 #### [facility] [address] [place], [address] Comprehensive Metabolic Prof ilon 01-17-2024 Albumin [Mass/Vol] 3.3 g/dL Normal 3.2-5.0 [facility] Comment on above: Performed By: #### L 400.0001 #### [facility] [address] [place], [address] Albumin/Globulin [Mass ratio] 0.8 {ratio} Low 0.9-2.4 [facility] Comment on above: Performed By: #### L 400.0001 #### [facility] [address] [place], [address] ALK P 110 U/L Normal 45-117 [facility] Comment on above: Performed By: #### L 400.0001 #### [facility] [address] [place], [address] ALT [Catalytic activity/Vol] 20 U/L Normal 13-56 [facility] Comment on above: Performed By: #### L 400.0001 #### [facility] [address] [place], [address] AST [Catalytic activity/Vol] 12 U/L Low 15-37 [facility] Comment on above: Performed By: #### L 400.0001 #### [facility] [address] [place], [address] Bilirubin [Mass/Vol] 0.70 mg/dL Normal 0.20-1.00 [facility] Comment on above: Result Comment: For patients on eltrombopag therapy, use of Dimension Sodus TBIL is not recommended. Performed By: #### L 400.0001 #### [facility] [address] [place], [address] BUN/CRE 20.4 RATIO High 10-20 [facility] Comment on above: Performed By: #### L 400.0001 #### [facility] [address] [place], [address] CA,Total 9.1 mg/dL Normal 8.5-10.1 [facility] Comment on above: Performed By: #### L 400.0001 #### [facility] [address] [place], [address] Chloride [Moles/Vol] 102 mmol/L Normal 98-107 [facility] Comment on above: Performed By: #### L 400.0001 #### [facility] [address] [place], [address] CO2 [Moles/Vol] 26.0 mmol/L Normal 21.0-32.0 [facility] Comment on above: Performed By: #### L 400.0001 #### [facility] [address] [place], [address] Creatinine [Mass/Vol] 0.88 mg/dL Normal 0.55-1.02 [facility] Comment on above: Result Comment: The validity of the calculated GFR GFRAA in patients over 70 years has not been determined. Clinical correlation is essential. Performed By: #### L 400.0001 #### [facility] [address] [place], [address] EST GFR - AA 81 mL/min Normal >60 [facility] Comment on above: Result Comment: Afri can Nigerien GFR Calc Performed By: #### L 400.0001 #### [facility] [address] [place], [address] GAP 8 Normal 5-15 [facility] Comment on above: Performed By: #### L 400.0001 #### [facility] [address] [place], [address] GFR/1.73 sq M.predicted among non-blacks MDRD (S/P/Bld) [Vol rate/Area] 67 mL/min/{1.73_m2} Normal >60 [facility] Comment on above: Result Comment: Non- GFR Calc Performed By: #### L 400.0001 #### [facility] [address] [place], [address] Globulin (S) [Mass/Vol] 4.0 g/dL Normal 2.2-4.2 [facility] Comment on above: Performed By: #### L 400.0001 #### [facility] [address] [place], [address] Glucose [Mass/Vol] 277 mg/dL High 74-106 [facility] Comment on above: Result Comment: Gluc ose result greater than or equal to 200 mg/dL suggests DIABETES MELLITUS per A.D.A. criteria. Performed By: #### L 400.0001 #### [facility] [address] [place], [address] Potassium [Moles/Vol] 4.4 mmol/L Normal 3.5-5.1 [facility] Comment on above: Performed By: #### L 400.0001 #### [facility] [address] [place], [address] Sodium [Moles/Vol] 136 mmol/L Normal 136-145 [facility] Comment on above: Performed By: #### L 400.0001 #### [facility] [address] [place], [address] (260 T PROT 7.3 g/dL Normal 6.4-8.2 [facility] Comment on above: Performed By: #### L 400.0001 #### [facility] [address] [place], [address] Urea nitrogen [Mass/Vol] 18 mg/dL Normal 7-18 [facility] Comment on above: Performed By: #### L 400.0001 #### [facility] [address] [place], [address] Free T3on 01-17-2024 Free T3 [Mass/Vol] 2.4 pg/mL Normal 2.18-3.98 [facility] Comment on above: Performed By: #### L 400.0001 #### [facility] [address] [place], [address] Hemoglobin A1con 01-17-2024 HbA1c (Bld) [Mass fraction] 10.8 % High 3.8-5.6 [facility] Comment on above: Result Comment: Norm al < 5.7 % Prediabetic 5.7 - 6.4 % Diabetic >or= 6.5 % Please note range changes. Performed By: #### L 400.0001 #### [facility] [address] [place], [address] Lipid Profileon 01-17-2024 Cholesterol [Mass/Vol] 143 mg/dL Normal 200 [facility] Comment on above: Result Comment: <200 mg/dL Desirable 200-240 mg/dL Borderline >240 mg/dL High Risk Performed By: #### L 400.0001 #### [facility] [address] [place], [address] Cholesterol in HDL [Mass/Vol] 54 mg/dL Normal [facility] Comment on above: Result Comment: The drugs N-Acetylcysteine and Metamizole may falsely depress this assay. Reference Range HDL <40 mg/dL Low HDL Cholesterol HDL >or= 60 mg/dL High HDL Cholesterol Performed By: #### L 400.0001 #### [facility] [address] [place], [address] Cholesterol in LDL [Mass/Vol] 53 mg/dL Normal 0-130 [facility] Comment on above: Performed By: #### L 400.0001 #### [facility] [address] [place], [address] Cholesterol in VLDL [Mass/Vol] 36 mg/dL Normal 5-40 [facility] Comment on above: Performed By: #### L 400.0001 #### [facility] [address] [place], [address] Triglyceride [Mass/Vol] 182 mg/dL Normal [facility] Comment on above: Result Comment: The drugs N-Acetylcysteine and Metamizole may falsely depress this assay. Serum Triglycerides Reference Interval Normal <150 mg/dL Borderline high 150 - 199 mg/dL High 200 - 499 mg/dL Very High > or = 500 mg/dL Performed By: #### L 400.0001 #### [facility] [address] [place], [address] Magnesiumon 01-17-2024 Magnesium [Mass/Vol] 2.1 mg/dL Normal 1.6-2.6 [facility] Comment on above: Performed By: #### L 400.0001 #### [facility] [address] [place], [address] T4 Free Directon 01-17-2024 T4 FREE DIRECT 1.16 ng/dL Normal 0.76-1.46 [facility] Comment on above: Performed By: #### L 400.0001 #### [facility] [address] [place], [address] Thyroid Stim Hormone (TSH)on 01-17-2024 TSH 3.800 uIU/mL High 0.358-3.740 [facility] Comment on above: Performed By: #### L 400.0001 #### [facility] [address] [place], [address] Vitamin D,25 Hydroxyon 01-16 Vitamin D 25-OH 10.2 ng/mL Normal [facility] Comment on above: Result Comment: Lucy min D 25(OH) Status Range Deficiency <20 ng/mL (50nmol/L) Insufficiency 20 - 30 ng/mL (50 - 75 nmol/L) Sufficiency 30 - 100 ng/mL (75 - 250 nmol/L) Toxicity >100 ng/mL (>250 nmol/L) Performed By: #### L 400.0001 #### [facility] [address] [place], [place], [address] MR/BMS.Bon 01-16-2024 MR/BMS.B [facility] [address] [place] [address] OFFICE VISIT Date of Service: 01/16/24 MR#: [id number] Acct: [id number] Name: FELICITAS ALCANTARA Rep #: [id number] : 1950 Provider: Dr. 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 Normal [facility] 12 Lead EKGon 01-15-2024 12 Lead EKG [facility] Cardiovascular Services [address] [place] [address] 12 Lead EKG 01/15/24 0930 MR#: [id number] Acct: [id number] Name: FELICITAS ALCANTARA Rep #: [id number] : 1950 73 From: Cecilio Feliz MD [...] bundle branch block Abnormal ECG Confirmed by AUDIE MCARTHUR, CECILIO ([id number]), editor dictionary ALLA LAINEZ ([id number]) on 01/17/2024 8:14:37 AM Referred By: JESUS/DH Confirmed By: CECILIO FELIZ MD 01/17/2414 Date Cecilio Feliz MD CC: Dr. Nathan Pritchard DO; Dr. Harish Noel MD Signed Normal [facility] Basic Metabolic Profile (BMP )on 01-15-2024 BUN/CRE 18.8 RATIO Normal 01-04 [facility] Comment on above: Order Comment: 1Y Performed By: #### L 100.0100, L500.2500, L300.8000, L501.4020 #### [facility] [address] [place], [address] CA,Total 9.7 mg/dL Normal 8.5-10.1 [facility] Comment on above: Order Comment: 1Y Performed By: #### L 100.0100, L500.2500, L300.8000, L501.4020 #### [facility] [address] [place], [address] Chloride [Moles/Vol] 101 mmol/L Normal 98-107 [facility] Comment on above: Order Comment: 1Y Performed By: #### L 100.0100, L500.2500, L300.8000, L501.4020 #### [facility] [address] [place], [address] CO2 [Moles/Vol] 28.0 mmol/L Normal 21.0-32.0 [facility] Comment on above: Order Comment: 1Y Performed By: #### L 100.0100, L500.2500, L300.8000, L501.4020 #### [facility] [address] [place], [address] Creatinine [Mass/Vol] 0.91 mg/dL Normal 0.55-1.02 [facility] Comment on above: Order Comment: 1Y Result Comment: The validity of the calculated GFR GFRAA in patients over 70 years has not been determined. Clinical correlation is essential. Performed By: #### L 100.0100, L500.2500, L300.8000, L501.4020 #### [facility] [address] [place], [address] ECRCL 63.57 ml/min Normal [facility] Comment on above: Order Comment: 1Y Performed By: #### L 100.0100, L500.2500, L300.8000, L501.4020 #### [facility] [address] [place], [address] EST GFR - AA 79 mL/min Normal >60 [facility] Comment on above: Order Comment: 1Y Result Comment: Afri can Nigerien GFR Calc Performed By: #### L 100.0100, L500.2500, L300.8000, L501.4020 #### [facility] [address] [place], [address] GAP 7 Normal 5-15 [facility] Comment on above: Order Comment: 1Y Performed By: #### L 100.0100, L500.2500, L300.8000, L501.4020 #### [facility] [address] [place], [address] GFR/1.73 sq M.predicted among non-blacks MDRD (S/P/Bld) [Vol rate/Area] 65 mL/min/{1.73_m2} Normal >60 [facility] Comment on above: Order Comment: 1Y Result Comment: Non- GFR Calc Performed By: #### L 100.0100, L500.2500, L300.8000, L501.4020 #### [facility] [address] [place], [address] Glucose [Mass/Vol] 231 mg/dL High 74-106 [facility] Comment on above: Order Comment: 1Y Result Comment: Gluc ose result greater than or equal to 200 mg/dL suggests DIABETES MELLITUS per A.D.A. criteria. Performed By: #### L 100.0100, L500.2500, L300.8000, L501.4020 #### [facility] [address] [place], [address] Potassium [Moles/Vol] 4.3 mmol/L Normal 3.5-5.1 [facility] Comment on above: Order Comment: 1Y Performed By: #### L 100.0100, L500.2500, L300.8000, L501.4020 #### [facility] [address] [place], [address] Sodium [Moles/Vol] 136 mmol/L Normal 136-145 [facility] Comment on above: Order Comment: 1Y Performed By: #### L 100.0100, L500.2500, L300.8000, L501.4020 #### [facility] [address] [place], [address] Urea nitrogen [Mass/Vol] 17 mg/dL Normal 7-18 [facility] Comment on above: Order Comment: 1Y Performed By: #### L 100.0100, L500.2500, L300.8000, L501.4020 #### [facility] [address] [place], [address] CBC W/Diff, Automatedon 10-3 0-2024 Absolute Lymph 2.13 X10 3/uL Normal 0.83-4.51 [facility] Comment on above: Performed By: #### L 100.0100, L500.2500, L300.8000, L501.4020 #### [facility] [address] [place], [address] Absolute Neut 10.5 X10 3/uL High 2.0-7.7 [facility] Comment on above: Performed By: #### L 100.0100, L500.2500, L300.8000, L501.4020 #### [facility] [address] [place], [address] Basophils/100 WBC (Bld) 0.7 % Normal 0-1 [facility] Comment on above: Performed By: #### L 100.0100, L500.2500, L300.8000, L501.4020 #### [facility] [address] [place], [address] Eosinophils/100 WBC (Bld) 1.7 % Normal 0-5 [facility] Comment on above: Performed By: #### L 100.0100, L500.2500, L300.8000, L501.4020 #### [facility] [address] [place], [address] Erythrocyte distribution width (RBC) [Ratio] 13.0 % Normal 11.6-14.6 [facility] Comment on above: Performed By: #### L 100.0100, L500.2500, L300.8000, L501.4020 #### [facility] [address] [place], [address] Hematocrit (Bld) [Volume fraction] 45.9 % Normal 37-47 [facility] Comment on above: Performed By: #### L 100.0100, L500.2500, L300.8000, L501.4020 #### [facility] [address] [place], [address] Hemoglobin (Bld) [Mass/Vol] 15.2 g/dL High 12.0-15.0 [facility] Comment on above: Performed By: #### L 100.0100, L500.2500, L300.8000, L501.4020 #### [facility] [address] [place], [address] IG% 1.100 High 0.0-0.9 [facility] Comment on above: Result Comment: IG% - Immature Granulocytes (promyelocytes, myelocytes and metamyelocytes) > 1% indicates that a LEFT SHIFT is Present. Performed By: #### L 100.0100, L500.2500, L300.8000, L501.4020 #### [facility] [address] [place], [address] Lymphocytes/100 WBC (Bld) 15.1 % Low 19-41 [facility] Comment on above: Performed By: #### L 100.0100, L500.2500, L300.8000, L501.4020 #### [facility] [address] [place], [address] MCH (RBC) [Entitic mass] 29.9 pg Normal 27.0-32.0 [facility] Comment on above: Performed By: #### L 100.0100, L500.2500, L300.8000, L501.4020 #### [facility] [address] [place], [address] MCHC (RBC) [Mass/Vol] 33.1 g/dL Normal 32-36 [facility] Comment on above: Performed By: #### L 100.0100, L500.2500, L300.8000, L501.4020 #### [facility] [address] [place], [address] MCV (RBC) [Entitic vol] 90.2 fL Normal 81-99 [facility] Comment on above: Performed By: #### L 100.0100, L500.2500, L300.8000, L501.4020 #### [facility] [address] [place], [address] Monocytes/100 WBC (Bld) 6.7 % Normal 0-10 [facility] Comment on above: Performed By: #### L 100.0100, L500.2500, L300.8000, L501.4020 #### [facility] [address] [place], [address] Neutrophils/100 WBC (Bld) 74.7 % High 47-70 [facility] Comment on above: Performed By: #### L 100.0100, L500.2500, L300.8000, L501.4020 #### [facility] [address] [place], [address] Nucleated RBC (Bld) [#/Vol] 0 10*3/uL Normal 0-5 [facility] Comment on above: Performed By: #### L 100.0100, L500.2500, L300.8000, L501.4020 #### [facility] [address] [place], [address] Platelet mean volume (Bld) [Entitic vol] 10.7 fL Normal 6.2-12.0 [facility] Comment on above: Performed By: #### L 100.0100, L500.2500, L300.8000, L501.4020 #### [facility] [address] [place], [address] Platelets (Bld) [#/Vol] 348 10*3/uL Normal 150-450 [facility] Comment on above: Performed By: #### L 100.0100, L500.2500, L300.8000, L501.4020 #### [facility] [address] [place], [address] RBC (Bld) [#/Vol] 5.09 10*6/uL Normal 4.2-5.4 [facility] Comment on above: Performed By: #### L 100.0100, L500.2500, L300.8000, L501.4020 #### [facility] [address] [place], [address] RDW SD 42.7 fl Normal 35.1-43.9 [facility] Comment on above: Performed By: #### L 100.0100, L500.2500, L300.8000, L501.4020 #### [facility] [address] [place], [address] WBC (Bld) [#/Vol] 14.1 10*3/uL High 4.4-11.0 [facility] Comment on above: Performed By: #### L 100.0100, L500.2500, L300.8000, L501.4020 #### [facility] [address] [place], [address] Chest 1 View (Portable)on Chest 1 View (Portable) [facility] Imaging Services [address] [place] [address] Chest 1 View (Portable) MR#: [id number] Acct: [id number] Name: FELICITAS ALCANTARA Rep #: [id number] : 1950 F 73 From: Hemanth Quinn MD PCP: Dr. Harish Noel MD Status: [facility] ER Study: Chest 1 View (Portable) Date of Exam: 01/15/24 Exam# [id number] Ordering Dr: Nathan Pritchard DO [id number] EXAM: XR CHEST, 1 VIEW CLINICAL INDICATION: [...] Signed: Hemanth Quinn MD at 11:20 EDT Reading Location ID and State: [facility] / [place] , Service support , CC: Dr. Nathan Pritchard DO; Dr. 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 Normal [facility] L501.4020on 01-15-2024 TROPONIN-I HS 9 pg/mL Normal 3.0-54.0 [facility] Comment on above: Result Comment: Carlton rice Note: New Test Units and Gender Specific Reference Ranges. For more information see Policy Stat Procedure [facility] High Sensitivity Troponin (TNIH) and attachments. Performed By: #### L 400.0001 #### [facility] [address] [place], [address] L501.5425on 01-15-2024 TROPONIN-I HS 10 pg/mL Normal 3.0-54.0 [facility] Comment on above: Order Comment: 1Y Result Comment: Pleanish rice Note: New Test Units and Gender Specific Reference Ranges. For more information see Policy Stat Procedure [facility] High Sensitivity Troponin (TNIH) and attachments. Performed By: #### L 100.0100, L500.2500, L300.8000, L501.4020 #### [facility] [address] [place], [address] 12 Lead EKGon 09-03-2023 12 Lead EKG [facility] Cardiovascular Services [address] [place] [address] 12 Lead EKG 09/02/23 1636 MR#: [id number] Acct: [id number] Name: FELICITAS ALCANTARA Rep #: [id number] : 1950 72 From: Cecilio Feliz MD [...] bundle branch block Abnormal ECG Confirmed by AUDIE MCARTHUR, CECILIO ([id number]), editor dictionary ALLA LAINEZ ([id number]) on 09/03/2023 11:26:35 AM Referred By: Confirmed By:CECILIO FELIZ MD 09/03/23 1126 Date Cecilio Feliz MD CC: Dr. Ravi Lamb MD; Dr. Harish Noel MD Signed [facility] 12 Lead EKG [facility] Cardiovascular Services [address] [place] [address] 12 Lead EKG 09/03/23 0638 MR#: [id number] Acct: [id number] Name: FELICITAS ALCANTARA Rep #: [id number] : 1950 72 From: Cecilio Feliz MD [...] Confirmed by CECILIO FELIZ MD ([id number]), editor dictionary ALLA LAINEZ ([id number]) on 09/05/2023 8:13:25 AM Referred By: ODETTE Confirmed By:CECILIO FELIZ MD 09/05/23 0813 Date Cecilio Feliz MD CC: Dr. Ravi Lamb MD; Dr. Harish Noel MD Signed Normal [facility] Abdomen/Pelvis W IV Cont ONL Yon 09-03-2023 Abdomen/Pelvis W IV Cont ONLY [facility] Imaging Services [address] [place] [address] Abdomen/Pelvis W IV Cont ONLY MR#: [id number] Acct: [id number] Name: FELICITAS ALCANTARA Rep #: [id number] : 1950 F 72 From: Roel lopez MD PCP: Dr. Harish Noel MD Status: REG ER Study: Abdomen/Pelvis W IV Cont ONLY Date of Exam: Exam# [id number] Ordering Dr: Ravi Lamb MD [id number] STUDY: CT ABDOMEN AND PELVIS WITH CONTRAST [...] Ravi Lamb MD; Dr. 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 Basic Metabolic Profile (BMP )on 09-03-2023 BUN/CRE 18.8 RATIO Normal 10-20 [facility] Comment on above: Order Comment: MAURISIO CTOR TO SPECIFY Performed By: #### L 400.0001 #### [facility] [address] [place], [place], [address] CA,Total 9.7 mg/dL Normal 8.5-10.1 [facility] Comment on above: Order Comment: MAURISIO CTOR TO SPECIFY Performed By: #### L 400.0001 #### [facility] [address] [place], [place], [address] Chloride [Moles/Vol] 98 mmol/L Normal 98-107 [facility] Comment on above: Order Comment: MAURISIO CTOR TO SPECIFY Performed By: #### L 400.0001 #### [facility] [address] [place], [address] CO2 [Moles/Vol] 26.0 mmol/L Normal 21.0-32.0 [facility] Comment on above: Order Comment: MAURISIO CTOR TO SPECIFY Performed By: #### L 400.0001 #### [facility] [address] [place], [address] Creatinine [Mass/Vol] 0.90 mg/dL Normal 0.55-1.02 [facility] Comment on above: Order Comment: MAURISIO CTOR TO SPECIFY Result Comment: The validity of the calculated GFR GFRAA in patients over 70 years has not been determined. Clinical correlation is essential. Performed By: #### L 400.0001 #### [facility] [address] [place] [id number] ECRCL 64.13 ml/min Normal [facility] Comment on above: Order Comment: MAURISIO CTOR TO SPECIFY Performed By: #### L 400.0001 #### [facility] [address] [place], [address] EST GFR - AA 79 mL/min Normal >60 [facility] Comment on above: Order Comment: MAURISIO CTOR TO SPECIFY Result Comment: Afri can Nigerien GFR Calc Performed By: #### L 400.0001 #### [facility] [address] [place], [address] GAP 7 Normal 5-15 [facility] Comment on above: Order Comment: MAURISIO CTOR TO SPECIFY Performed By: #### L 400.0001 #### [facility] [address] [place], [address] GFR/1.73 sq M.predicted among non-blacks MDRD (S/P/Bld) [Vol rate/Area] 65 mL/min/{1.73_m2} Normal >60 [facility] Comment on above: Order Comment: MAURISIO CTOR TO SPECIFY Result Comment: Non- GFR Calc Performed By: #### L 400.0001 #### [facility] [address] [place], [address] Glucose [Mass/Vol] 278 mg/dL High 74-106 [facility] Comment on above: Order Comment: MAURISIO CTOR TO SPECIFY Result Comment: Gluc ose result greater than or equal to 200 mg/dL suggests DIABETES MELLITUS per A.D.A. criteria. Performed By: #### L 400.0001 #### [facility] [address] [place], [address] Potassium [Moles/Vol] 4.1 mmol/L Normal 3.5-5.1 [facility] Comment on above: Order Comment: MAURISIO CTOR TO SPECIFY Performed By: #### L 400.0001 #### [facility] [address] [place], [address] Sodium [Moles/Vol] 131 mmol/L Low 136-145 [facility] Comment on above: Order Comment: MAURISIO CTOR TO SPECIFY Performed By: #### L 400.0001 #### [facility] [address] [place], [address] Urea nitrogen [Mass/Vol] 17 mg/dL Normal 7-18 [facility] Comment on above: Order Comment: MAURISIO CTOR TO SPECIFY Performed By: #### L 400.0001 #### [facility] [address] [place], [address] Bedside Glucoseon 09-03-2023 FINGERSTICK GLU 295 mg/dL High 74-106 [facility] Comment on above: Result Comment: RIMMA ADRIAN OF PATIENT CARE PER NURSING PROTOCOL Performed By: #### L 100.0100, L500.2500, L300.8000, L501.4020 #### [facility] [address] [place], [address] CBC W/Diff, Automatedon 08-16 Absolute Lymph 2.10 X10 3/uL Normal 0.83-4.51 [facility] Comment on above: Performed By: #### L 400.0001 #### [facility] [address] [place], [address] Absolute Neut 15.2 X10 3/uL High 2.0-7.7 [facility] Comment on above: Performed By: #### L 400.0001 #### [facility] [address] [place], [address] Basophils/100 WBC (Bld) 0.4 % Normal 0-1 [facility] Comment on above: Performed By: #### L 400.0001 #### [facility] [address] [place], [address] Eosinophils/100 WBC (Bld) 0.4 % Normal 0-5 [facility] Comment on above: Performed By: #### L 400.0001 #### [facility] [address] [place], [address] Erythrocyte distribution width (RBC) [Ratio] 12.8 % Normal 11.6-14.6 [facility] Comment on above: Performed By: #### L 400.0001 #### [facility] [address] [place], [address] Hematocrit (Bld) [Volume fraction] 50.1 % High 37-47 [facility] Comment on above: Performed By: #### L 400.0001 #### [facility] [address] [place], [address] Hemoglobin (Bld) [Mass/Vol] 16.0 g/dL High 12.0-15.0 [facility] Comment on above: Performed By: #### L 400.0001 #### [facility] [address] [place], [address] IG% 0.700 Normal 0.0-0.9 [facility] Comment on above: Result Comment: IG% - Immature Granulocytes (promyelocytes, myelocytes and metamyelocytes) > 1% indicates that a LEFT SHIFT is Present. Performed By: #### L 400.0001 #### [facility] [address] [place], [address] Lymphocytes/100 WBC (Bld) 11.4 % Low 19-41 [facility] Comment on above: Performed By: #### L 400.0001 #### [facility] [address] [place], [address] MCH (RBC) [Entitic mass] 29.1 pg Normal 27.0-32.0 [facility] Comment on above: Performed By: #### L 400.0001 #### [facility] [address] [place], [address] MCHC (RBC) [Mass/Vol] 31.9 g/dL Low 32-36 [facility] Comment on above: Performed By: #### L 400.0001 #### [facility] [address] [place], [address] MCV (RBC) [Entitic vol] 91.1 fL Normal 81-99 [facility] Comment on above: Performed By: #### L 400.0001 #### [facility] [address] [place], [address] Monocytes/100 WBC (Bld) 4.8 % Normal 0-10 [facility] Comment on above: Performed By: #### L 400.0001 #### [facility] [address] [place], [address] Neutrophils/100 WBC (Bld) 82.3 % High 47-70 [facility] Comment on above: Performed By: #### L 400.0001 #### [facility] [address] [place], [address] Nucleated RBC (Bld) [#/Vol] 0 10*3/uL Normal 0-5 [facility] Comment on above: Performed By: #### L 400.0001 #### [facility] [address] [place], [address] Platelet mean volume (Bld) [Entitic vol] 10.7 fL Normal 6.2-12.0 [facility] Comment on above: Performed By: #### L 400.0001 #### [facility] [address] [place], [address] Platelets (Bld) [#/Vol] 333 10*3/uL Normal 150-450 [facility] Comment on above: Performed By: #### L 400.0001 #### [facility] [address] [place], [address] RBC (Bld) [#/Vol] 5.50 10*6/uL High 4.2-5.4 [facility] Comment on above: Performed By: #### L 400.0001 #### [facility] [address] [place] [place], [address] RDW SD 42.5 fl Normal 35.1-43.9 [facility] Comment on above: Performed By: #### L 400.0001 #### [facility] [address] [place], [address] WBC (Bld) [#/Vol] 18.4 10*3/uL High 4.4-11.0 [facility] Comment on above: Performed By: #### L 400.0001 #### [facility] [address] [place], [address] Chest 1 View (Portable)on Chest 1 View (Portable) [facility] Imaging Services [address] [place] [address] Chest 1 View (Portable) MR#: [id number] Acct: [id number] Name: FELICITAS ALCANTARA Rep #: [id number] : 1950 F 72 From: Roel lopez MD PCP: Dr. Harish Noel MD Status: REG ER Study: Chest 1 View (Portable) Date of Exam: 09/03/23 Exam# [id number] Ordering Dr: Ravi Lamb [place] [id number] STUDY: X-RAY CHEST REASON FOR EXAM: Female, [...] Signed: Roel Moreno MD at 8:33 EDT , CC: Dr. Ravi Lamb MD; Dr. 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 Normal [facility] L501.4020on 09-03-2023 TROPONIN-I HS 14 pg/mL Normal 3.0-54.0 [facility] Comment on above: Order Comment: 'TROP ' Serial specimen #1, #2 or #3: 1 Result Comment: Carlton rice Note: New Test Units and Gender Specific Reference Ranges. For more information see Policy Stat Procedure Sodus High Sensitivity Troponin (TNIH) and attachments. Performed By: #### L 100.0100, L500.2500, L300.8000, L501.4020 #### [facility] [address] [place], [address] Urinalysis, Completeon 09-02 BACTERIA 2+ /hpf Normal None Seen [facility] Comment on above: Order Comment: MAURISIO CTOR TO SPECIFY Performed By: #### L 400.0001 #### [facility] [address] [place], [address] EPI,SQUAMOUS 0-5 SEEN Normal 5-10 [facility] Comment on above: Order Comment: MAURISIO CTOR TO SPECIFY Performed By: #### L 400.0001 #### [facility] [address] [place], [address] WBC 0-5 SEEN Normal 0-5 [facility] Comment on above: Order Comment: MAURISIO CTOR TO SPECIFY Performed By: #### L 400.0001 #### [facility] [address] [place], [address] Mucus Ql (Urine sed) 0 SEEN Normal [facility] Comment on above: Order Comment: MAURISIO CTOR TO SPECIFY Performed By: #### L 400.0001 #### [facility] [address] [place], [address] RBC 0 SEEN Normal 0-5 [facility] Comment on above: Order Comment: MAURISIO CTOR TO SPECIFY Performed By: #### L 400.0001 #### [facility] [address] [place], [address] Basic Metabolic Profile (BMP )on 09-02-2023 BUN/CRE 20.0 RATIO Normal 10-20 [facility] Comment on above: Order Comment: 'TROP ' Serial specimen #1, #2 or #3: 1 Performed By: #### L 100.0100, L500.2500, L300.8000, L501.4020 #### [facility] [address] [place], [address] CA,Total 9.4 mg/dL Normal 8.5-10.1 [facility] Comment on above: Order Comment: 'TROP ' Serial specimen #1, #2 or #3: 1 Performed By: #### L 100.0100, L500.2500, L300.8000, L501.4020 #### [facility] [address] [place], [address] Chloride [Moles/Vol] 101 mmol/L Normal 98-107 [facility] Comment on above: Order Comment: 'TROP ' Serial specimen #1, #2 or #3: 1 Performed By: #### L 100.0100, L500.2500, L300.8000, L501.4020 #### [facility] [address] [place], [address] CO2 [Moles/Vol] 27.0 mmol/L Normal 21.0-32.0 [facility] Comment on above: Order Comment: 'TROP ' Serial specimen #1, #2 or #3: 1 Performed By: #### L 100.0100, L500.2500, L300.8000, L501.4020 #### [facility] [address] [place], [address] Creatinine [Mass/Vol] 0.95 mg/dL Normal 0.55-1.02 [facility] Comment on above: Order Comment: 'TROP ' Serial specimen #1, #2 or #3: 1 Result Comment: The validity of the calculated GFR GFRAA in patients over 70 years has not been determined. Clinical correlation is essential. Performed By: #### L 100.0100, L500.2500, L300.8000, L501.4020 #### [facility] [address] [place], [address] ECRCL 61.67 ml/min Normal [facility] Comment on above: Order Comment: 'TROP ' Serial specimen #1, #2 or #3: 1 Performed By: #### L 100.0100, L500.2500, L300.8000, L501.4020 #### [facility] [address] [place], [address] EST GFR - AA 74 mL/min Normal >60 [facility] Comment on above: Order Comment: 'TROP ' Serial specimen #1, #2 or #3: 1 Result Comment: Afri can Nigerien GFR Calc Performed By: #### L 100.0100, L500.2500, L300.8000, L501.4020 #### [facility] [address] [place], [address] GAP 8 Normal 5-15 [facility] Comment on above: Order Comment: 'TROP ' Serial specimen #1, #2 or #3: 1 Performed By: #### L 100.0100, L500.2500, L300.8000, L501.4020 #### [facility] [address] [place], [address] GFR/1.73 sq M.predicted among non-blacks MDRD (S/P/Bld) [Vol rate/Area] 62 mL/min/{1.73_m2} Normal >60 [facility] Comment on above: Order Comment: 'TROP ' Serial specimen #1, #2 or #3: 1 Result Comment: Non- GFR Calc Performed By: #### L 100.0100, L500.2500, L300.8000, L501.4020 #### [facility] [address] [place], [address] Glucose [Mass/Vol] 276 mg/dL High 74-106 [facility] Comment on above: Order Comment: 'TROP ' Serial specimen #1, #2 or #3: 1 Result Comment: Gluc ose result greater than or equal to 200 mg/dL suggests DIABETES MELLITUS per A.D.A. criteria. Performed By: #### L 100.0100, L500.2500, L300.8000, L501.4020 #### [facility] [address] [place], [address] Potassium [Moles/Vol] 4.2 mmol/L Normal 3.5-5.1 [facility] Comment on above: Order Comment: 'TROP ' Serial specimen #1, #2 or #3: 1 Performed By: #### L 100.0100, L500.2500, L300.8000, L501.4020 #### [facility] [address] [place], [address] Sodium [Moles/Vol] 136 mmol/L Normal 136-145 [facility] Comment on above: Order Comment: 'TROP ' Serial specimen #1, #2 or #3: 1 Performed By: #### L 100.0100, L500.2500, L300.8000, L501.4020 #### [facility] [address] [place], [address] Urea nitrogen [Mass/Vol] 19 mg/dL High 7-18 [facility] Comment on above: Order Comment: 'TROP ' Serial specimen #1, #2 or #3: 1 Performed By: #### L 100.0100, L500.2500, L300.8000, L501.4020 #### [facility] [address] [place], [address] CBC W/Diff, Automatedon 06- Absolute Lymph 1.95 X10 3/uL Normal 0.83-4.51 [facility] Comment on above: Performed By: #### L 100.0100, L500.2500, L300.8000, L501.4020 #### [facility] [address] [place], [address] Absolute Neut 10.4 X10 3/uL High 2.0-7.7 [facility] Comment on above: Performed By: #### L 100.0100, L500.2500, L300.8000, L501.4020 #### [facility] [address] [place], [address] Basophils/100 WBC (Bld) 0.6 % Normal 0-1 [facility] Comment on above: Performed By: #### L 100.0100, L500.2500, L300.8000, L501.4020 #### [facility] [address] [place], [address] Eosinophils/100 WBC (Bld) 2.0 % Normal 0-5 [facility] Comment on above: Performed By: #### L 100.0100, L500.2500, L300.8000, L501.4020 #### [facility] [address] [place], [address] Erythrocyte distribution width (RBC) [Ratio] 12.8 % Normal 11.6-14.6 [facility] Comment on above: Performed By: #### L 100.0100, L500.2500, L300.8000, L501.4020 #### [facility] [address] [place], [address] Hematocrit (Bld) [Volume fraction] 46.8 % Normal 37-47 [facility] Comment on above: Performed By: #### L 100.0100, L500.2500, L300.8000, L501.4020 #### [facility] [address] [place], [address] Hemoglobin (Bld) [Mass/Vol] 15.1 g/dL High 12.0-15.0 [facility] Comment on above: Performed By: #### L 100.0100, L500.2500, L300.8000, L501.4020 #### [facility] [address] [place], [address] IG% 0.700 Normal 0.0-0.9 [facility] Comment on above: Result Comment: IG% - Immature Granulocytes (promyelocytes, myelocytes and metamyelocytes) > 1% indicates that a LEFT SHIFT is Present. Performed By: #### L 100.0100, L500.2500, L300.8000, L501.4020 #### [facility] [address] [place], [address] Lymphocytes/100 WBC (Bld) 14.3 % Low 19-41 [facility] Comment on above: Performed By: #### L 100.0100, L500.2500, L300.8000, L501.4020 #### [facility] [address] [place], [address] MCH (RBC) [Entitic mass] 29.2 pg Normal 27.0-32.0 [facility] Comment on above: Performed By: #### L 100.0100, L500.2500, L300.8000, L501.4020 #### [facility] [address] [place], [address] MCHC (RBC) [Mass/Vol] 32.3 g/dL Normal 32-36 [facility] Comment on above: Performed By: #### L 100.0100, L500.2500, L300.8000, L501.4020 #### [facility] [address] [place], [address] MCV (RBC) [Entitic vol] 90.3 fL Normal 81-99 [facility] Comment on above: Performed By: #### L 100.0100, L500.2500, L300.8000, L501.4020 #### [facility] [address] [place], [address] Monocytes/100 WBC (Bld) 6.0 % Normal 0-10 [facility] Comment on above: Performed By: #### L 100.0100, L500.2500, L300.8000, L501.4020 #### [facility] [address] [place], [address] Neutrophils/100 WBC (Bld) 76.4 % High 47-70 [facility] Comment on above: Performed By: #### L 100.0100, L500.2500, L300.8000, L501.4020 #### [facility] [address] [place], [address] Nucleated RBC (Bld) [#/Vol] 0 10*3/uL Normal 0-5 [facility] Comment on above: Performed By: #### L 100.0100, L500.2500, L300.8000, L501.4020 #### [facility] [address] [place], [address] Platelet mean volume (Bld) [Entitic vol] 10.8 fL Normal 6.2-12.0 [facility] Comment on above: Performed By: #### L 100.0100, L500.2500, L300.8000, L501.4020 #### [facility] [address] [place], [address] Platelets (Bld) [#/Vol] 309 10*3/uL Normal 150-450 [facility] Comment on above: Performed By: #### L 100.0100, L500.2500, L300.8000, L501.4020 #### [facility] [address] [place], [address] RBC (Bld) [#/Vol] 5.18 10*6/uL Normal 4.2-5.4 [facility] Comment on above: Performed By: #### L 100.0100, L500.2500, L300.8000, L501.4020 #### [facility] [address] [place], [address] RDW SD 42.4 fl Normal 35.1-43.9 [facility] Comment on above: Performed By: #### L 100.0100, L500.2500, L300.8000, L501.4020 #### [facility] [address] [place], [address] WBC (Bld) [#/Vol] 13.6 10*3/uL High 4.4-11.0 [facility] Comment on above: Performed By: #### L 100.0100, L500.2500, L300.8000, L501.4020 #### [facility] [address] [place], [address] Chest PA and Lateralon 09-01 Chest PA and Lateral [facility] Imaging Services [address] [place] [address] Chest PA and Lateral MR#: [id number] Acct: [id number] Name: FELICITAS ALCANTARA Rep #: [id number] : 1950 F 72 From: Malachi Lindsay MD PCP: Dr. Harish Noel MD Status: [facility] ER Study: Chest PA and Lateral Date of Exam: 09/02/23 Exam# [id number] Ordering Dr: Nathan Pritchard DO [id number] STUDY: X-RAY CHEST REASON FOR EXAM: Female, [...] Signed: Malachi Lindsay MD at 17:23 EDT Reading Location ID and State: [facility] / [place] Tel , Service support , CC: Dr. Nathan Pritchard DO; Dr. 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 D-Dimer Quantitative (DVT/PE )on 09-02-2023 D-DIMER QUANT 0.40 FEU/ug/m Normal 0.27-0.49 [facility] Comment on above: Result Comment: NORM AL D-Dimer level (<0.50) indicates no DVT or PE. Performed By: #### L 100.0100, L500.2500, L300.8000, L501.4020 #### [facility] [address] [facility] [place], [address] Emergency Department Summary on 09-02-2023 Emergency Department Summary [facility] Medical Records Department [address] [place] [address] Emergency Department Summary 09/02/23 MR#: [id number] Acct: [id number] Name: FELICITAS ALCANTARA Rep #: [id number] : 1950 72 From: Nathan Pritchard DO [...] also admits to some dizziness and headache. [facility] Medical History History of left heart catheterization (LHC) ( 09/05/21) Abnormal nuclear stress test Dyspnea on exertion Mass of lip Elevated WBC count History of DVT (deep vein thrombosis) Presence of stent in coronary artery ( 04/10/16) History of non-ST elevation myocardial infarction (NSTEMI) Cardiogenic shock Type 2 diabetes mellitus Atherosclerotic heart disease of [place] coronary artery without angina pectoris Essential hypertension Carpal tunnel syndrome Hyperlipemia Hypertension Hypothyroidism History of pneumonia IBS (irritable bowel syndrome) Diabetes Home Medications ???Medication ???Instructions ???Recorded ???Last Taken ???Type levothyroxine 112 mcg tablet 112 mcg PO DAILY #90 tabs 10/01/22 Unknown Rx clopidogrel 75 mg tablet 75 mg PO DAILY #90 tabs 01/28/23 Unknown Rx insulin NPH-regular 70-30 U-100 See Rx Instructions subcut QA #15 06/25/23 Unknown Rx insulin 100 unit/mL subcutaneous mL pen carvedilol 25 mg tablet 25 mg PO BID #60 tabs 07/18/23 Unknown Rx Allergy/AdvReac Type Severity Reaction Status Date / Time alogliptin Allergy Hives Verified 09/02/23 15:25 dulaglutide (From [facility]) Allergy Hives Verified 09/02/23 15:25 glipizide Allergy [...] 17:24 Temperatur (more content not included)... Normal [facility] L501.4020on 09-02-2023 TROPONIN-I HS 12 pg/mL Normal 3.0-54.0 [facility] Comment on above: Order Comment: 'TROP ' Serial specimen #1, #2 or #3: 1 Result Comment: Carlton rice Note: New Test Units and Gender Specific Reference Ranges. For more information see Policy Stat Procedure Sodus High Sensitivity Troponin (TNIH) and attachments. Performed By: #### L 100.0100, L500.2500, L300.8000, L501.4020 #### [facility] [address] [place], [address] Urinalysis, Completeon 09-01 EPI,SQUAMOUS 0-5 SEEN Normal 5-10 [facility] Comment on above: Order Comment: MAURISIO CTOR TO SPECIFY Performed By: #### L 400.0001 #### [facility] [address] [place], [address] BACTERIA 0 SEEN Normal None Seen [facility] Comment on above: Order Comment: MAURISIO CTOR TO SPECIFY Performed By: #### L 400.0001 #### [facility] [address] [place], [address] Mucus Ql (Urine sed) 0 SEEN Normal [facility] Comment on above: Order Comment: MAURISIO CTOR TO SPECIFY Performed By: #### L 400.0001 #### [facility] [address] [place], [address] RBC 0 SEEN Normal 0-5 [facility] Comment on above: Order Comment: MAURISIO CTOR TO SPECIFY Performed By: #### L 400.0001 #### [facility] [address] [place], [address] WBC 0 SEEN Normal 0-5 [facility] Comment on above: Order Comment: MAURISIO CTOR TO SPECIFY Performed By: #### L 400.0001 #### [facility] [address] [place], [address] /Jessica 08-05-2023 /DEO.FERMIN [facility] [address] [facility] [place] [address] OFFICE VISIT Date of Service: 08/05/23 MR#: [id number] Acct: [id number] Name: FELICITAS ALCANTARA Rep #: [id number] : 1950 Provider: Dr. Harish jose MD Age/Sex: 72/F Location: [facility] Status: Signed Intake Vital Signs 02/04/23 13:45 [...] 6 M FU Chief Complaint: 6m f/u Hand Coper Required: No Accompanied by: Self Is patient [...] 2 diabetes mellitus Atherosclerotic heart disease of [place] coronary artery without angina pectoris Essential hypertension [...] HPI Chief Complaint: 6m f/u Details: FELICITAS ALCNATARA, is a 72 F who presents to [...] She has been following with cardiology at [place]. She is only on carvedilol and clopidogrel [...] clear thyrom (more content not included)... Normal [facility] Absolute lymphocyte countOrd ered By: Dr. Noel on 06-11-2022 Lymphocytes Auto (Unsp spec) [#/Vol] 3.11 10*3/uL 0.83-4.51 [facility] Basophil percentageOrdered B y: Dr. Noel on 06-11-2022 Basophils/100 WBC (Bld) 0.6 % 0-1 [facility] Bilirubin [Mass/Vol] 0.60 mg/dL 0.20-1.00 [facility] Comment on above: For patients on eltr ombopag therapy, use of Dimension Sodus TBIL is not recommended. Chloride [Moles/Vol] 102 mmol/L 98-107 [facility] Eosinophils/100 WBC (Bld) 2.2 % 0-5 [facility] Glucose [Mass/Vol] 173 mg/dL 74-106 [facility] Comment on above: Fasting Glucose resu lt greater than or equal to 126 mg/dL suggests DIABETES MELLITUS per A.D.A. criteria. Neutrophils (Bld) [#/Vol] 9.5 10*3/uL 2.0-7.7 [facility] Neutrophils/100 WBC (Bld) 67.2 % 47-70 [facility] Potassium [Moles/Vol] 4.2 mmol/L 3.5-5.1 [facility] Protein [Mass/Vol] 7.5 g/dL 6.4-8.2 [facility] Sodium [Moles/Vol] 135 mmol/L 136-145 [facility] WBC (Bld) [#/Vol] 14.0 10*3/uL 4.4-11.0 [facility] Basophil percentageOrdered B y: Rustam Francois on 06-11-2022 Cholesterol [Mass/Vol] 158 mg/dL <200 [facility] Comment on above: <200 mg/dL Desirable 200-240 mg/dL Borderline >240 mg/dL High Risk Triglyceride [Mass/Vol] 212 mg/dL <199 [facility] Comment on above: The drugs N-Acetylcy steine and Metamizole may falsely depress this assay.Serum Triglycerides Reference Interval Normal <150 mg/dL Borderline high 150 - 199 mg/dL High 200 - 499 mg/dL Very High > or = 500 mg/dL Blood erythrocytes count (nu mber/volume)Ordered By: Dr. Noel on 06-11-2022 RBC (Bld) [#/Vol] 5.01 10*6/uL 4.2-5.4 [facility] Blood hemoglobin measurement (mass/volume)Ordered By: Dr. Noel on 06-11-2022 Hemoglobin (Bld) [Mass/Vol] 14.6 g/dL 12.0-15.0 [facility] Blood lymphocytes/100 leukoc ytesOrdered By: Dr. Noel on 06-11-2022 Lymphocytes/100 WBC (Bld) 22.2 % 19-41 [facility] Blood monocytes/100 leukocyt esOrdered By: Dr. Noel on 06-11-2022 Monocytes/100 WBC (Bld) 7.0 % 0-10 [facility] Blood platelet mean volumeOr dered By: Dr. Noel on 06-11-2022 Platelet mean volume (Bld) [Entitic vol] 10.5 fL 6.2-12.0 [facility] Determination of erythrocyte mean corpuscular volume (MCV)Ordered By: Dr. Noel on 06-11-2022 MCV (RBC) [Entitic vol] 89.6 fL 81-99 [facility] Direct bilirubinOrdered By: Dr. Noel on 06-11-2022 Bilirubin.direct [Mass/Vol] 0.16 mg/dL 0.00-0.30 [facility] Hematocrit Auto (Bld) [Volum e fraction]Ordered By: Dr. Noel on 06-11-2022 Hematocrit (Bld) [Volume fraction] 44.9 % 37-47 [facility] Laboratory - Chemistry and C hemistry - challengeOrdered By: Dr. Noel on 06-11-2022 ALP [Catalytic activity/Vol] 98 U/L 45-117 [facility] ALT [Catalytic activity/Vol] 25 U/L 13-56 [facility] CO2 [Moles/Vol] 28.0 mmol/L 21.0-32.0 [facility] Cobalamin (Vitamin B12) [Mass/Vol] 296 pg/mL 211-911 [facility] Free T4 [Mass/Vol] 1.03 ng/dL 0.76-1.46 [facility] Globulin (S) [Mass/Vol] 4.2 g/dL 2.2-4.2 [facility] Urea nitrogen/Creatinine [Mass ratio] 21.3 mg/mg 10-20 [facility] Laboratory - Hematology and Cell countsOrdered By: Dr. Noel on 06-11-2022 Erythrocyte distribution width (RBC) [Entitic vol] 46.9 fL 35.1-43.9 [facility] Erythrocyte distribution width (RBC) [Ratio] 14.3 % 11.6-14.6 [facility] Immature granulocytes/100 WBC (Bld) 0.800 % 0.0-0.9 [facility] Comment on above: IG% - Immature Granu locytes (promyelocytes, myelocytes and metamyelocytes) > 1% indicates that a LEFT SHIFT is Present. MCH (RBC) [Entitic mass] 29.1 pg 27.0-32.0 [facility] Nucleated RBC/100 WBC (Bld) [Ratio] 0 % 0-5 [facility] MCHC Auto (RBC) [Mass/Vol]Or dered By: Dr. Noel on 06-11-2022 MCHC (RBC) [Mass/Vol] 32.5 g/dL 32-36 [facility] No Panel InformationOrdered By: Dr. Noel on 06-11-2022 Estimated GFR (MDRD) Amer 80 mL/min >60 [facility] Comment on above: GFR Calc Estimated GFR (MDRD) Non-Af Amer 66 mL/min >60 [facility] Comment on above: Non- GFR Calc Free Triiodothyronine (T3) pg/dL 2.6 pg/mL 2.18-3.98 [facility] Thyroid Stimulating Hormone (TSH) 8.13 uIU/mL 0.358-3.74 [facility] Vitamin D 25-Hydroxy 24.6 ng/mL [facility] Comment on above: Vitamin D 25(OH) Sta tus Range Deficiency <20 ng/mL (50nmol/L) Insufficiency 20 - 30 ng/mL (50 - 75 nmol/L) Sufficiency 30 - 100 ng/mL (75 - 250 nmol/L) Toxicity >100 ng/mL (>250 nmol/L) Platelets bldOrdered By: Dr. Noel on 06-11-2022 Platelets (Bld) [#/Vol] 316 10*3/uL 150-450 [facility] Serum or plasma albumin betsy urement (mass/volume)Ordered By: Dr. Noel on 06-11-2022 Albumin [Mass/Vol] 3.3 g/dL 3.2-5.0 [facility] Serum or plasma albumin/glob ulin mass ratioOrdered By: Dr. Noel on 06-11-2022 Albumin/Globulin [Mass ratio] 0.8 {ratio} 0.9-2.4 [facility] Serum or plasma calcium betsy urement (mass/volume)Ordered By: Dr. Noel on 06-11-2022 Calcium [Mass/Vol] 9.1 mg/dL 8.5-10.1 [facility] Serum or plasma cholesterol in HDL measurement (mass/volume)Ordered By: Rustam Francois on 06-11-2022 Cholesterol in HDL [Mass/Vol] 51 mg/dL >40 [facility] Comment on above: The drugs N-Acetylcy steine and Metamizole may falsely depress this assay. Reference Range HDL <40 mg/dL Low HDL Cholesterol HDL >or= 60 mg/dL High HDL Cholesterol Serum or plasma cholesterol in VLDL measurement (mass/volume)Ordered By: Rustam Francois on 06-11-2022 Cholesterol in VLDL [Mass/Vol] 42 mg/dL 5-40 [facility] Serum or plasma creatinine m easurement (mass/volume)Ordered By: Dr. Noel on 06-11-2022 Creatinine [Mass/Vol] 0.89 mg/dL 0.55-1.02 [facility] Comment on above: The validity of the calculated GFR & GFRAA in patients over 70 years has not been determined. Clinical correlation is essential. Serum or plasma low density lipoprotein (LDL) cholesterol measurement (mass/volume)Ordered By: Rustam Francois on 06-11-2022 Cholesterol in LDL [Mass/Vol] 65 mg/dL 0-130 [facility] Serum or plasma urea nitroge n measurement (mass/volume)Ordered By: Dr. Noel on 06-11-2022 Urea nitrogen [Mass/Vol] 19 mg/dL 7-18 [facility] Thin prep Papanicolaou smear with manual screeningOrdered By: Dr. Noel on 06-11-2022 Thin prep Papanicolaou smear with manual screening 19 U/L 15-37 [facility] Thin prep Papanicolaou smear with manual screening 5 5-15 [facility] Laboratory - Hematology and Cell countson 05-16-2022 HbA1c (Bld) [Mass fraction] 10.0 % 4.2-6.3 [facility] Absolute lymphocyte counton 01-21-2022 Lymphocytes Auto (Unsp spec) [#/Vol] 2.10 10*3/uL 0.83-4.51 [facility] Work Phone: Basophil percentageon 2021 Basophils/100 WBC (Bld) 0.6 % 0-1 [facility] Work Phone: Chloride [Moles/Vol] 98 mmol/L 98-107 [facility] Work Phone: Eosinophils/100 WBC (Bld) 1.8 % 0-5 [facility] Work Phone: Glucose [Mass/Vol] 208 mg/dL 74-106 [facility] Work Phone: Comment on above: Glucose result great er than or equal to 200 mg/dLsuggests DIABETES MELLITUS per A.D.A. criteria. Neutrophils (Bld) [#/Vol] 12.6 10*3/uL 2.0-7.7 [facility] Work Phone: Neutrophils/100 WBC (Bld) 77.5 % 47-70 [facility] Work Phone: Potassium [Moles/Vol] 4.1 mmol/L 3.5-5.1 [facility] Work Phone: Sodium [Moles/Vol] 134 mmol/L 136-145 [facility] Work Phone: [phone] WBC (Bld) [#/Vol] 16.3 10*3/uL 4.4-11.0 [facility] Work Phone: [phone] Blood erythrocytes count (nu mber/volume)on 01-21-2022 RBC (Bld) [#/Vol] 4.75 10*6/uL 4.2-5.4 [facility] Work Phone: Blood hemoglobin measurement (mass/volume)on 01-21-2022 Hemoglobin (Bld) [Mass/Vol] 13.6 g/dL 12.0-15.0 [facility] Work Phone: Blood lymphocytes/100 leukoc yteson 01-21-2022 Lymphocytes/100 WBC (Bld) 12.9 % 19-41 [facility] Work Phone: Blood monocytes/100 leukocyt eson 01-21-2022 Monocytes/100 WBC (Bld) 6.2 % 0-10 [facility] Work Phone: [phone] Blood platelet mean volumeon 01-21-2022 Platelet mean volume (Bld) [Entitic vol] 10.3 fL 6.2-12.0 [facility] Work Phone: [phone] Determination of erythrocyte mean corpuscular volume (MCV)on 01-21-2022 MCV (RBC) [Entitic vol] 90.9 fL 81-99 [facility] Work Phone: Glucose Glucometer (BldC) [M ass/Vol]on 01-21-2022 Glucose [Mass/Vol] 215 mg/dL 74-106 [facility] Work Phone: Comment on above: MANAGEMENT OF PATIEN T CARE PER NURSING PROTOCOL Hematocrit Auto (Bld) [Volum e fraction]on 01-21-2022 Hematocrit (Bld) [Volume fraction] 43.2 % 37-47 [facility] Work Phone: [phone] Laboratory - Chemistry and C hemistry - challengeon 01-21-2022 CO2 [Moles/Vol] 29.0 mmol/L 21.0-32.0 [facility] Work Phone: [phone] Urea nitrogen/Creatinine [Mass ratio] 18.6 mg/mg 10-20 [facility] Work Phone: [phone] Laboratory - Hematology and Cell countson 01-21-2022 Erythrocyte distribution width (RBC) [Entitic vol] 42.5 fL 35.1-43.9 [facility] Work Phone: [phone] Erythrocyte distribution width (RBC) [Ratio] 12.8 % 11.6-14.6 [facility] Work Phone: [phone] Immature granulocytes/100 WBC (Bld) 1.000 % 0.0-0.9 [facility] Work Phone: [phone] Comment on above: IG% - Immature Granu locytes (promyelocytes, myelocytes and metamyelocytes) > 1% indicates that a LEFT SHIFT is Present. MCH (RBC) [Entitic mass] 28.6 pg 27.0-32.0 [facility] Work Phone: [phone] Nucleated RBC/100 WBC (Bld) [Ratio] 0 % 0-5 [facility] Work Phone: [phone] MCHC Auto (RBC) [Mass/Vol]on 01-21-2022 MCHC (RBC) [Mass/Vol] 31.5 g/dL 32-36 [facility] Work Phone: [phone] No Panel Informationon 01-21 D-Dimer Quantitative (PE/DVT) 1.38 FEU/ug/m 0.27-0.49 [facility] Work Phone: [phone] Comment on above: D-Dimer ELEVATED (>0 .49): Additional studies and clinicalassessments are indicated to conclude diagnosis of:Deep Vein Thrombosis (DVT) or Pulmonary Embolism (PE)CRITICAL VALUE VERIFIED. CALLED TO JEWELL RODRIGEZ01/21/22 [id number].RESULTS READ BACK BY SAME . Estimated Creatinine Clearance Calc 45.50 ml/min [facility] Work Phone: Estimated GFR (MDRD) Amer 78 mL/min >60 [facility] Work Phone: Comment on above: GFR Calc Estimated GFR (MDRD) Non-Af Amer 65 mL/min >60 [facility] Work Phone: Comment on above: Non- GFR Calc Troponin I High Sensitivity 17 pg/mL 3.0-54.0 [facility] Work Phone: Comment on above: Please Note: [place] t Units and Gender Specific Reference Ranges. For more information see Policy Stat Procedure Sodus High Sensitivity Troponin (TNIH) and attachments. Platelets bldon 01-21-2022 Platelets (Bld) [#/Vol] 374 10*3/uL 150-450 [facility] Work Phone: Serum or plasma calcium betsy urement (mass/volume)on 01-21-2022 Calcium [Mass/Vol] 10.3 mg/dL 8.5-10.1 [facility] Work Phone: Serum or plasma creatinine m easurement (mass/volume)on 01-21-2022 Creatinine [Mass/Vol] 0.91 mg/dL 0.55-1.02 [facility] Work Phone: Comment on above: The validity of the calculated GFR & GFRAA in patients over 70 years has not been determined. Clinical correlation is essential. Serum or plasma urea nitroge n measurement (mass/volume)on 01-21-2022 Urea nitrogen [Mass/Vol] 17 mg/dL 7-18 [facility] Work Phone: [phone] Thin prep Papanicolaou smear with manual screeningon 01-21-2022 Thin prep Papanicolaou smear with manual screening 7 5-15 [facility] Work Phone: [phone] Basophil percentageon 2021 Bilirubin [Mass/Vol] 0.50 mg/dL 0.20-1.00 [facility] Work Phone: Comment on above: For patients on eltr ombopag therapy, use of Dimension Sodus TBIL is not recommended. Chloride [Moles/Vol] 102 mmol/L 98-107 [facility] Work Phone: Glucose [Mass/Vol] 109 mg/dL 74-106 [facility] Work Phone: Comment on above: Fasting Glucose resu lt from 100 to 125 mg/dL suggests IMPAIRED HOMEOSTASIS per A.D.A. criteria. Potassium [Moles/Vol] 4.2 mmol/L 3.5-5.1 [facility] Work Phone: Protein [Mass/Vol] 7.6 g/dL 6.4-8.2 [facility] Work Phone: Sodium [Moles/Vol] 136 mmol/L 136-145 [facility] Work Phone: Laboratory - Chemistry and C hemistry - challengeon 01-11-2022 ALP [Catalytic activity/Vol] 94 U/L 45-117 [facility] Work Phone: ALT [Catalytic activity/Vol] 20 U/L 13-56 [facility] Work Phone: CO2 [Moles/Vol] 29.0 mmol/L 21.0-32.0 [facility] Work Phone: Free T4 [Mass/Vol] 0.90 ng/dL 0.76-1.46 [facility] Work Phone: Globulin (S) [Mass/Vol] 4.2 g/dL 2.2-4.2 [facility] Work Phone: Magnesium [Mass/Vol] 2.0 mg/dL 1.6-2.6 [facility] Work Phone: Urea nitrogen/Creatinine [Mass ratio] 22.6 mg/mg 10-20 [facility] Work Phone: No Panel Informationon 01-11 Estimated GFR (MDRD) Amer 98 mL/min >60 [facility] Work Phone: Comment on above: GFR Calc Estimated GFR (MDRD) Non-Af Amer 81 mL/min >60 [facility] Work Phone: Comment on above: Non- GFR Calc Free Triiodothyronine (T3) pg/dL 3.5 pg/mL 2.18-3.98 [facility] Work Phone: Thyroid Stimulating Hormone (TSH) 2.25 uIU/mL 0.358-3.74 [facility] Work Phone: Vitamin D 25-Hydroxy 19.4 ng/mL [facility] Work Phone: Comment on above: Vitamin D 25(OH) Sta tus Range Deficiency <20 ng/mL (50nmol/L) Insufficiency 20 - 30 ng/mL (50 - 75 nmol/L) Sufficiency 30 - 100 ng/mL (75 - 250 nmol/L) Toxicity >100 ng/mL (>250 nmol/L) Serum or plasma albumin betsy urement (mass/volume)on 01-11-2022 Albumin [Mass/Vol] 3.4 g/dL 3.2-5.0 [facility] Work Phone: Serum or plasma albumin/glob ulin mass ratioon 01-11-2022 Albumin/Globulin [Mass ratio] 0.8 {ratio} 0.9-2.4 [facility] Work Phone: Serum or plasma calcium betsy urement (mass/volume)on 01-11-2022 Calcium [Mass/Vol] 9.5 mg/dL 8.5-10.1 [facility] Work Phone: [phone] Serum or plasma creatinine m easurement (mass/volume)on 01-11-2022 Creatinine [Mass/Vol] 0.75 mg/dL 0.55-1.02 [facility] Work Phone: Comment on above: The validity of the calculated GFR & GFRAA in patients over 70 years has not been determined. Clinical correlation is essential. Serum or plasma urea nitroge n measurement (mass/volume)on 01-11-2022 Urea nitrogen [Mass/Vol] 17 mg/dL 7-18 [facility] Work Phone: [phone] Thin prep Papanicolaou smear with manual screeningon 01-11-2022 Thin prep Papanicolaou smear with manual screening 14 U/L 15-37 [facility] Work Phone: Thin prep Papanicolaou smear with manual screening 5 5-15 [facility] Work Phone: XR CHEST 2 VIEWSon [...] 12/28/2021 12:02:56 AM Ordering Provider: JUAN JUAREZ [facility] ([place]) XR CHEST 2 VIEWSon 2 XR CHEST [...] 12/15/2021 8:57:36 AM Ordering Provider: JUAN JUAREZ [facility] ([place]) .GFRon 12-14-2021 GFR >60 Normal [facility] ([place]) Comment on above: Result Comment: GFR Population [...] GLURP, CLRP, NARP, BGRP, KRP, CARP #### [place] [address] GFR Non- >60 Normal [facility] ([place]) Comment on above: Result Comment: GFR Population [...] GLURP, CLRP, NARP, BGRP, KRP, CARP #### [address] [address] BMPon 12-14-2021 BUN/Creatinine Ratio 32.6 ratio High 10.0-22.0 [facility] ([place]) Comment on above: Performed By: #### H CTRP, HGBRP, GLURP, CLRP, NARP, BGRP, KRP, CARP #### [address] [address] Calcium [Mass/Vol] 10.0 mg/dL Normal 8.7-10.4 [facility] ([place]) Comment on above: Performed By: #### H CTRP, HGBRP, GLURP, CLRP, NARP, BGRP, KRP, CARP #### [address] [address] Chloride [Moles/Vol] 99 mmol/L Normal 98-110 [facility] ([place]) Comment on above: Performed By: #### H CTRP, HGBRP, GLURP, CLRP, NARP, BGRP, KRP, CARP #### [address] [address] CO2 [Moles/Vol] 32 mmol/L Normal 22-32 [facility] ([place]) Comment on above: Performed By: #### H CTRP, HGBRP, GLURP, CLRP, NARP, BGRP, KRP, CARP #### [address] [address] Creatinine [Mass/Vol] 0.86 mg/dL Normal 0.50-1.20 [facility] ([place]) Comment on above: Performed By: #### H CTRP, HGBRP, GLURP, CLRP, NARP, BGRP, KRP, CARP #### [address] [address] Electrolyte Balance 6.0 mEq/L Normal 4.0-15.0 [facility] ([place]) Comment on above: Performed By: #### H CTRP, HGBRP, GLURP, CLRP, NARP, BGRP, KRP, CARP #### [address] [address] Glucose [Mass/Vol] 268 mg/dL High 82-115 [facility] ([place]) Comment on above: Performed By: #### H CTRP, HGBRP, GLURP, CLRP, NARP, BGRP, KRP, CARP #### [address] [address] Potassium [Moles/Vol] 5.0 mmol/L Normal 3.5-5.0 [facility] ([place]) Comment on above: Result Comment: Spec imen slightly hemolyzed. Performed By: #### H CTRP, HGBRP, GLURP, CLRP, NARP, BGRP, KRP, CARP #### [address] [address] Sodium [Moles/Vol] 137 mmol/L Normal 136-145 [facility] ([place]) Comment on above: Performed By: #### H CTRP, HGBRP, GLURP, CLRP, NARP, BGRP, KRP, CARP #### [address] [address] Urea nitrogen [Mass/Vol] 28.0 mg/dL High 8.0-22.0 [facility] ([place]) Comment on above: Performed By: #### H CTRP, HGBRP, GLURP, CLRP, NARP, BGRP, KRP, CARP #### [address] [address] LABORATORYOrdered By: SYSTEM SYSTEM on 12-13-2021 Calcium [...] Code 4.0 - 15.0 mEq/L ADM SS GFR/1.73 sq M.predicted among blacks MDRD (S/P/Bld) [Vol rate/Area] ml/min/1.73sqm Invalid Interpretation Code Chemistry S GFR/1.73 sq M.predicted among non-blacks MDRD (S/P/Bld) [Vol rate/Area] ml/min/1.73sqm Invalid Interpretation Code Chemistry S Glucose [Mass/Vol] 268 mg/dL Invalid Interpretation Code 82 - 115 mg/dL AH ADM SS Potassium [Moles/Vol] 5.0 mmol/L Invalid Interpretation Code 3.5 - 5.0 mEq/L AH ADM SS Comment on above: Result Comment: Spec imen slightly hemolyzed. Sodium [Moles/Vol] 137 mmol/L Invalid Interpretation Code 136 - 145 mEq/L AH ADM SS Urea nitrogen [Mass/Vol] 28.0 mg/dL Invalid Interpretation Code 8.0 - 22.0 mg/dL AH ADM SS Urea nitrogen/Creatinine [Mass ratio] 32.6 [...] 11/30/2021 12:35:45 AM Ordering Provider: NAT Mercado [facility] ([place]) .Auto Diffon 11-29-2021 Basophil, Absolute 0.1 10 3/mcL Normal 0.0-0.3 [facility] ([place]) Comment on above: Performed By: #### H CTRP, HGBRP, GLURP, CLRP, NARP, BGRP, KRP, CARP #### [address] [address] Basophils/100 WBC (Bld) 0.5 % Normal 0.0-2.5 A [facility] ([place]) Comment on above: Performed By: #### H CTRP, HGBRP, GLURP, CLRP, NARP, BGRP, KRP, CARP #### [address] [address] Eosinophil, Absolute 0.7 10 3/mcL Normal 0.0-0.7 [facility] ([place]) Comment on above: Performed By: #### H CTRP, HGBRP, GLURP, CLRP, NARP, BGRP, KRP, CARP #### [address] [address] Eosinophils/100 WBC (Bld) 4.1 % Normal 0.0-6.0 [facility] ([place]) Comment on above: Performed By: #### H CTRP, HGBRP, GLURP, CLRP, NARP, BGRP, KRP, CARP #### [address] [address] Lymphocyte, Absolute 2.5 10 3/mcL Normal 0.9-4.3 [facility] ([place]) Comment on above: Performed By: #### H CTRP, HGBRP, GLURP, CLRP, NARP, BGRP, KRP, CARP #### [address] [address] Lymphocytes/100 WBC (Bld) 14.6 % Low 20.0-40.0 [facility] ([place]) Comment on above: Performed By: #### H CTRP, HGBRP, GLURP, CLRP, NARP, BGRP, KRP, CARP #### [address] [address] Monocyte, Absolute 1.2 10 3/mcL Normal 0.1-1.4 [facility] ([place]) Comment on above: Performed By: #### H CTRP, HGBRP, GLURP, CLRP, NARP, BGRP, KRP, CARP #### [address] [address] Monocytes/100 WBC (Bld) 6.8 % Normal 2.0-13.0 A [facility] ([place]) Comment on above: Performed By: #### H CTRP, HGBRP, GLURP, CLRP, NARP, BGRP, KRP, CARP #### [address] [address] Neutrophils/100 WBC (Bld) 74.0 % Normal 50.0-75.0 [facility] ([place]) Comment on above: Performed By: #### H CTRP, HGBRP, GLURP, CLRP, NARP, BGRP, KRP, CARP #### [address] [address] .GFRon 11-29-2021 GFR Non- >60 Normal [facility] ([place]) Comment on above: Result Comment: GFR Population [...] GLURP, CLRP, NARP, BGRP, KRP, CARP #### [address] [address] GFR >60 Normal [facility] ([place]) Comment on above: Result Comment: GFR Population [...] GLURP, CLRP, NARP, BGRP, KRP, CARP #### [address] [address] .NEUABSon 11-29-2021 Neutrophil, Absolute 12.4 10 3/mcL High 2.3-8.1 A [facility] ([place]) Comment on above: Performed By: #### H CTRP, HGBRP, GLURP, CLRP, NARP, BGRP, KRP, CARP #### [address] [address] BMPon 11-29-2021 BUN/Creatinine Ratio 23.2 ratio High 10.0-22.0 [facility] ([place]) Comment on above: Performed By: #### H CTRP, HGBRP, GLURP, CLRP, NARP, BGRP, KRP, CARP #### [address] [address] Calcium [Mass/Vol] 9.4 mg/dL Normal 8.7-10.4 [facility] ([place]) Comment on above: Performed By: #### H CTRP, HGBRP, GLURP, CLRP, NARP, BGRP, KRP, CARP #### [address] [address] Chloride [Moles/Vol] 92 mmol/L Low 98-110 [facility] ([place]) Comment on above: Performed By: #### H CTRP, HGBRP, GLURP, CLRP, NARP, BGRP, KRP, CARP #### [address] [address] CO2 [Moles/Vol] 34 mmol/L High 22-32 [facility] ([place]) Comment on above: Performed By: #### H CTRP, HGBRP, GLURP, CLRP, NARP, BGRP, KRP, CARP #### [address] [address] Creatinine [Mass/Vol] 0.82 mg/dL Normal 0.50-1.20 [facility] ([place]) Comment on above: Performed By: #### H CTRP, HGBRP, GLURP, CLRP, NARP, BGRP, KRP, CARP #### [address] [address] Electrolyte Balance 8.0 mEq/L Normal 4.0-15.0 [facility] ([place]) Comment on above: Performed By: #### H CTRP, HGBRP, GLURP, CLRP, NARP, BGRP, KRP, CARP #### [address] [address] Glucose [Mass/Vol] 168 mg/dL High 82-115 [facility] ([place]) Comment on above: Performed By: #### H CTRP, HGBRP, GLURP, CLRP, NARP, BGRP, KRP, CARP #### [address] [address] Potassium [Moles/Vol] 3.9 mmol/L Normal 3.5-5.0 [facility] ([place]) Comment on above: Performed By: #### H CTRP, HGBRP, GLURP, CLRP, NARP, BGRP, KRP, CARP #### [address] [address] Sodium [Moles/Vol] 134 mmol/L Low 136-145 [facility] ([place]) Comment on above: Performed By: #### H CTRP, HGBRP, GLURP, CLRP, NARP, BGRP, KRP, CARP #### [address] [address] Urea nitrogen [Mass/Vol] 19.0 mg/dL Normal 8.0-22.0 [facility] ([place]) Comment on above: Performed By: #### H CTRP, HGBRP, GLURP, CLRP, NARP, BGRP, KRP, CARP #### [address] [address] CBCon 11-29-2021 Erythrocyte distribution width (RBC) [Ratio] 14.2 % Normal 11.5-15.5 [facility] ([place]) Comment on above: Performed By: #### H CTRP, HGBRP, GLURP, CLRP, NARP, BGRP, KRP, CARP #### [place] [address] Hematocrit (Bld) [Volume fraction] 34.6 % Normal 34.0-46.0 [facility] ([place]) Comment on above: Performed By: #### H CTRP, HGBRP, GLURP, CLRP, NARP, BGRP, KRP, CARP #### [place] [address] Hgb 11.4 G/dL Low 12.0-16.0 [facility] ([place]) Comment on above: Performed By: #### H CTRP, HGBRP, GLURP, CLRP, NARP, BGRP, KRP, CARP #### [place] [address] MCH (RBC) [Entitic mass] 29.7 pg Normal 27.0-33.0 [facility] ([place]) Comment on above: Performed By: #### H CTRP, HGBRP, GLURP, CLRP, NARP, BGRP, KRP, CARP #### [place] [address] MCHC 32.9 G/dL Normal 32.0-36.0 [facility] ([place]) Comment on above: Performed By: #### H CTRP, HGBRP, GLURP, CLRP, NARP, BGRP, KRP, CARP #### [place] [id number] MCV (RBC) [Entitic vol] 90.5 fL Normal 80.0-99.0 A [facility] ([place]) Comment on above: Performed By: #### H CTRP, HGBRP, GLURP, CLRP, NARP, BGRP, KRP, CARP #### [address] [address] Platelet 365 10 3/mcL Normal 150-450 [facility] ([place]) Comment on above: Performed By: #### H CTRP, HGBRP, GLURP, CLRP, NARP, BGRP, KRP, CARP #### [address] [address] Platelet mean volume (Bld) [Entitic vol] 8.1 fL Normal 6.6-10.5 [facility] ([place]) Comment on above: Performed By: #### H CTRP, HGBRP, GLURP, CLRP, NARP, BGRP, KRP, CARP #### [address] [address] RBC 3.82 10 6/mcL Low 4.10-5.30 [facility] ([place]) Comment on above: Performed By: #### H CTRP, HGBRP, GLURP, CLRP, NARP, BGRP, KRP, CARP #### [address] [address] WBC 16.8 10 3/mcL High 4.5-10.8 [facility] ([place]) Comment on above: Performed By: #### H CTRP, HGBRP, GLURP, CLRP, NARP, BGRP, KRP, CARP #### [address] [address] LABORATORYOrdered By: Dayo Sanabria on 11-29-2021 Blood Glucose Testing Reason Routine (11/29/21 11:55 AM) [facility] Work Phone: Glucose [Mass/Vol] 164 mg/dL Invalid Interpretation Code 82 - 115 mg/dL [facility] Work Phone: Comment on above: Result Comment: L[facility] LABORATORYOrdered By: Rodney Nam on 11-29-2021 Blood Glucose Testing Reason Routine (11/29/21 7:28 AM) [facility] [facility] Work Phone: Glucose [Mass/Vol] 174 mg/dL Invalid Interpretation Code 82 - 115 mg/dL [facility] Work Phone: LABORATORYOrdered By: SYSTEM SYSTEM on 11-29-2021 Basophils (Bld) [#/Vol] 0.1 103/mcL Invalid Interpretation Code 0.0 - 0.3 10^3/mcL Workflow SS Basophils/100 WBC (Bld) 0.5 % Invalid Interpretation Code 0.0 - 2.5 % AH Workflow SS Calcium [Mass/Vol] 9.4 mg/dL Invalid Interpretation Code 8.7 - 10.4 mg/dL ADM SS Chloride [Moles/Vol] 92 mmol/L Invalid Interpretation Code 98 - 110 mEq/L ADM SS CO2 [Moles/Vol] 34 mmol/L Invalid Interpretation Code 22 - 32 mEq/L ADM SS Creatinine [Mass/Vol] 0.82 mg/dL Invalid Interpretation Code 0.50 - 1.20 mg/dL ADM SS Electrolyte Balance 8.0 mEq/L Invalid Interpretation Code 4.0 - 15.0 mEq/L ADM SS Eosinophils (Bld) [#/Vol] 0.7 103/mcL Invalid Interpretation Code 0.0 - 0.7 10^3/mcL Workflow SS Eosinophils/100 WBC (Bld) 4.1 % [...] G/dL AH Workflow SS Lymphocytes (Bld) [#/Vol] 2.5 103/mcL Invalid Interpretation Code 0.9 - 4.3 10^3/mcL AH Workflow SS Lymphocytes/100 WBC (Bld) 14.6 % Invalid Interpretation Code 20.0 - 40.0 % AH Workflow SS MCH (RBC) [Entitic mass] 29.7 pg Invalid Interpretation Code 27.0 - 33.0 pg AH Workflow SS MCHC 32.9 G/dL Invalid Interpretation Code 32.0 - 36.0 G/dL AH Workflow SS MCV (RBC) [Entitic vol] 90.5 fL Invalid Interpretation Code 80.0 - 99.0 fL AH Workflow SS Monocytes (Bld) [#/Vol] 1.2 103/mcL Invalid Interpretation Code 0.1 - 1.4 10^3/mcL AH Workflow SS Monocytes/100 WBC (Bld) 6.8 % Invalid Interpretation Code 2.0 - 13.0 % AH Workflow SS Neutrophils (Bld) [#/Vol] 12.4 103/mcL [...] 4.5 - 10.8 10^3/mcL AH Workflow SS .Auto Diffon 11-28-2021 Basophil, Absolute 0.1 10 3/mcL Normal 0.0-0.3 [facility] ([place]) Comment on above: Performed By: #### H CTRP, HGBRP, GLURP, CLRP, NARP, BGRP, KRP, CARP #### [address] [address] Basophils/100 WBC (Bld) 0.8 % Normal 0.0-2.5 A [facility] ([place]) Comment on above: Performed By: #### H CTRP, HGBRP, GLURP, CLRP, NARP, BGRP, KRP, CARP #### [address] [address] Eosinophil, Absolute 0.4 10 3/mcL Normal 0.0-0.7 [facility] ([place]) Comment on above: Performed By: #### H CTRP, HGBRP, GLURP, CLRP, NARP, BGRP, KRP, CARP #### [address] [address] Eosinophils/100 WBC (Bld) 2.9 % Normal 0.0-6.0 [facility] ([place]) Comment on above: Performed By: #### H CTRP, HGBRP, GLURP, CLRP, NARP, BGRP, KRP, CARP #### [address] [address] Lymphocyte, Absolute 2.0 10 3/mcL Normal 0.9-4.3 [facility] ([place]) Comment on above: Performed By: #### H CTRP, HGBRP, GLURP, CLRP, NARP, BGRP, KRP, CARP #### [address] [address] Lymphocytes/100 WBC (Bld) 13.5 % Low 20.0-40.0 [facility] ([place]) Comment on above: Performed By: #### H CTRP, HGBRP, GLURP, CLRP, NARP, BGRP, KRP, CARP #### [address] [address] Monocyte, Absolute 1.1 10 3/mcL Normal 0.1-1.4 [facility] ([place]) Comment on above: Performed By: #### H CTRP, HGBRP, GLURP, CLRP, NARP, BGRP, KRP, CARP #### [address] [address] Monocytes/100 WBC (Bld) 7.7 % Normal 2.0-13.0 A [facility] ([place]) Comment on above: Performed By: #### H CTRP, HGBRP, GLURP, CLRP, NARP, BGRP, KRP, CARP #### [address] [address] Neutrophils/100 WBC (Bld) 75.1 % High 50.0-75.0 [facility] ([place]) Comment on above: Performed By: #### H CTRP, HGBRP, GLURP, CLRP, NARP, BGRP, KRP, CARP #### [address] [address] .GFRon 11-28-2021 GFR >60 Normal [facility] ([place] Comment on above: Result Comment: GFR Population [...] GLURP, CLRP, NARP, BGRP, KRP, CARP #### [address] [address] GFR Non- >60 Normal [facility] ([place]) Comment on above: Result Comment: GFR Population [...] GLURP, CLRP, NARP, BGRP, KRP, CARP #### [address] [address] .NEUABSon 11-28-2021 Neutrophil, Absolute 11.2 10 3/mcL High 2.3-8.1 A [facility] ([place]) Comment on above: Performed By: #### H CTRP, HGBRP, GLURP, CLRP, NARP, BGRP, KRP, CARP #### [place] [address] BGon 11-28-2021 Barometric Pressure 701 mmHg Normal [facility] ([place]) Comment on above: Performed By: #### H CTRP, HGBRP, GLURP, CLRP, NARP, BGRP, KRP, CARP #### [place] [address] Base excess Calc (Bld) [Moles/Vol] 9.8 mmol/L Normal [facility] ([place]) Comment on above: Performed By: #### H CTRP, HGBRP, GLURP, CLRP, NARP, BGRP, KRP, CARP #### [place] [address] CO2 [Moles/Vol] 36.7 mmol/L High 22.0-30.0 [facility] ([place]) Comment on above: Performed By: #### H CTRP, HGBRP, GLURP, CLRP, NARP, BGRP, KRP, CARP #### [place] [address] HCO3 (Bld) [Moles/Vol] 35.1 mmol/L High 21.0-29.0 A [facility] ([place] Comment on above: Performed By: #### H CTRP, HGBRP, GLURP, CLRP, NARP, BGRP, KRP, CARP #### [address] [address] Oxygen (Bld) [Partial pressure] 70.5 mm[Hg] Low 74.0-108.0 [facility] ([place]) Comment on above: Performed By: #### H CTRP, HGBRP, GLURP, CLRP, NARP, BGRP, KRP, CARP #### [address] [address] Oxygen saturation in Blood 94.9 % Normal 92.0-96.0 [facility] ([place]) Comment on above: Performed By: #### H CTRP, HGBRP, GLURP, CLRP, NARP, BGRP, KRP, CARP #### [address] [address] pCO2 50.4 mmHg High 32.0-46.0 [facility] ([place]) Comment on above: Performed By: #### H CTRP, HGBRP, GLURP, CLRP, NARP, BGRP, KRP, CARP #### [address] [address] pH (Bld) 7.461 [pH] High 7.380-7.460 [facility] ([place]) Comment on above: Performed By: #### H CTRP, HGBRP, GLURP, CLRP, NARP, BGRP, KRP, CARP #### [address] [address] BMPon 11-28-2021 BUN/Creatinine Ratio 23.3 ratio High 10.0-22.0 [facility] ([place] Comment on above: Performed By: #### H CTRP, HGBRP, GLURP, CLRP, NARP, BGRP, KRP, CARP #### [address] [address] Calcium [Mass/Vol] 9.0 mg/dL Normal 8.7-10.4 [facility] ([place]) Comment on above: Performed By: #### H CTRP, HGBRP, GLURP, CLRP, NARP, BGRP, KRP, CARP #### [address] [address] Chloride [Moles/Vol] 92 mmol/L Low 98-110 [facility] ([place] Comment on above: Performed By: #### H CTRP, HGBRP, GLURP, CLRP, NARP, BGRP, KRP, CARP #### [address] [address] CO2 [Moles/Vol] 37 mmol/L High 22-32 [facility] ([place] Comment on above: Performed By: #### H CTRP, HGBRP, GLURP, CLRP, NARP, BGRP, KRP, CARP #### [address] [address] Creatinine [Mass/Vol] 0.90 mg/dL Normal 0.50-1.20 [facility] ([place]) Comment on above: Performed By: #### H CTRP, HGBRP, GLURP, CLRP, NARP, BGRP, KRP, CARP #### [address] [address] Electrolyte Balance 6.0 mEq/L Normal 4.0-15.0 [facility] ([place]) Comment on above: Performed By: #### H CTRP, HGBRP, GLURP, CLRP, NARP, BGRP, KRP, CARP #### [address] [address] Glucose [Mass/Vol] 208 mg/dL High 82-115 [facility] ([place] Comment on above: Performed By: #### H CTRP, HGBRP, GLURP, CLRP, NARP, BGRP, KRP, CARP #### [address] [address] Potassium [Moles/Vol] 3.7 mmol/L Normal 3.5-5.0 [facility] ([place]) Comment on above: Performed By: #### H CTRP, HGBRP, GLURP, CLRP, NARP, BGRP, KRP, CARP #### [place] [address] Sodium [Moles/Vol] 135 mmol/L Low 136-145 [facility] ([place] Comment on above: Performed By: #### H CTRP, HGBRP, GLURP, CLRP, NARP, BGRP, KRP, CARP #### [place] [address] Urea nitrogen [Mass/Vol] 21.0 mg/dL Normal 8.0-22.0 [facility] ([place]) Comment on above: Performed By: #### H CTRP, HGBRP, GLURP, CLRP, NARP, BGRP, KRP, CARP #### [place] [address] CBCon 11-28-2021 Erythrocyte distribution width (RBC) [Ratio] 14.1 % Normal 11.5-15.5 [facility] ([place]) Comment on above: Performed By: #### H CTRP, HGBRP, GLURP, CLRP, NARP, BGRP, KRP, CARP #### [place] [address] Hematocrit (Bld) [Volume fraction] 34.4 % Normal 34.0-46.0 [facility] ([place]) Comment on above: Performed By: #### H CTRP, HGBRP, GLURP, CLRP, NARP, BGRP, KRP, CARP #### [place] [address] Hgb 11.2 G/dL Low 12.0-16.0 [facility] ([place]) Comment on above: Performed By: #### H CTRP, HGBRP, GLURP, CLRP, NARP, BGRP, KRP, CARP #### [place] [id number] MCH (RBC) [Entitic mass] 29.5 pg Normal 27.0-33.0 [facility] ([place]) Comment on above: Performed By: #### H CTRP, HGBRP, GLURP, CLRP, NARP, BGRP, KRP, CARP #### [place] [address] MCHC 32.6 G/dL Normal 32.0-36.0 [facility] ([place]) Comment on above: Performed By: #### H CTRP, HGBRP, GLURP, CLRP, NARP, BGRP, KRP, CARP #### [place] [address] MCV (RBC) [Entitic vol] 90.5 fL Normal 80.0-99.0 A [facility] ([place]) Comment on above: Performed By: #### H CTRP, HGBRP, GLURP, CLRP, NARP, BGRP, KRP, CARP #### [place] [address] Platelet 353 10 3/mcL Normal 150-450 [facility] ([place]) Comment on above: Performed By: #### H CTRP, HGBRP, GLURP, CLRP, NARP, BGRP, KRP, CARP #### [place] [address] Platelet mean volume (Bld) [Entitic vol] 7.9 fL Normal 6.6-10.5 [facility] ([place]) Comment on above: Performed By: #### H CTRP, HGBRP, GLURP, CLRP, NARP, BGRP, KRP, CARP #### [place] [address] RBC 3.80 10 6/mcL Low 4.10-5.30 [facility] ([place]) Comment on above: Performed By: #### H CTRP, HGBRP, GLURP, CLRP, NARP, BGRP, KRP, CARP #### [place] [address] WBC 14.9 10 3/mcL High 4.5-10.8 [facility] ([place]) Comment on above: Performed By: #### H CTRP, HGBRP, GLURP, CLRP, NARP, BGRP, KRP, CARP #### [place] [id number] CVFLURVon 11-28-2021 Date of Onset [id number] Invalid Interpretation Code [facility] ([place] Comment on above: Performed By: #### H CTRP, HGBRP, GLURP, CLRP, NARP, BGRP, KRP, CARP #### [place] [address] Employed in Healthcare No [facility] [employer] [facility] ([place] Comment on above: Performed By: #### H CTRP, HGBRP, GLURP, CLRP, NARP, BGRP, KRP, CARP #### [place] [address] First Test No [facility] ([place]) Comment on above: Performed By: #### H CTRP, HGBRP, GLURP, CLRP, NARP, BGRP, KRP, CARP #### [place] [address] FLU A PCR Negative Normal Negative [facility] ([place]) Comment on above: Result Comment: Note s Performed By: #### H CTRP, HGBRP, GLURP, CLRP, NARP, BGRP, KRP, CARP #### [place] [address] FLU B PCR Negative Normal Negative [facility] ([place]) Comment on above: Result Comment: Note s Performed By: #### H CTRP, HGBRP, GLURP, CLRP, NARP, BGRP, KRP, CARP #### [place] [address] Hospitalized Yes [facility] ([place] Comment on above: Performed By: #### H CTRP, HGBRP, GLURP, CLRP, NARP, BGRP, KRP, CARP #### [place] [address] ICU No [facility] ([place] Comment on above: Performed By: #### H CTRP, HGBRP, GLURP, CLRP, NARP, BGRP, KRP, CARP #### [place] [address] Not [facility] ([place] Comment on above: Performed By: #### H CTRP, HGBRP, GLURP, CLRP, NARP, BGRP, KRP, CARP #### [place] [address] Resides in Congregate Care Setting No Normal [facility] ([place] Comment on above: Performed By: #### H CTRP, HGBRP, GLURP, CLRP, NARP, BGRP, KRP, CARP #### [place] [address] RSV PCR Negative Normal Negative [facility] ([place] Comment on above: Result Comment: Note s Performed By: #### H CTRP, HGBRP, GLURP, CLRP, NARP, BGRP, KRP, CARP #### [place] [address] SARS-CoV-2 (COVID-19) RNA SLOAN+probe Ql (Unsp spec) Negative Normal Negative [facility] ([place]) Comment on above: Result Comment: Note s [...] GLURP, CLRP, NARP, BGRP, KRP, CARP #### [place] [id number] [place] [id number] Symptomatic as Defined by CDC No Normal [facility] ([place] Comment on above: Performed By: #### H CTRP, HGBRP, GLURP, CLRP, NARP, BGRP, KRP, CARP #### [place] [id number] [place] [id number] LABORATORYOrdered By: Coleen Mckeon on 11-28-2021 Glucose [Mass/Vol] 159 mg/dL Invalid Interpretation Code 82 - 115 mg/dL [facility] Work Phone: LABORATORYOrdered By: Betty Awad on 11-28-2021 Date of Onset 20211128 Invalid Interpretation Code AH Auto Viro/Sero SS Employed in Healthcare No (11/28/21 6:58 PM) Invalid Interpretation Code AH Auto Viro/Sero SS First Test No (11/28/21 6:58 PM) Invalid Interpretation Code Auto Viro/Sero SS FLUAV RNA SLOAN+probe Ql (Resp) Negative 2 (11/28/21 6:58 PM) Invalid Interpretation Code Negative Auto Viro/Sero SS Comment on above: Result [...] Glucose Testing Reason Routine (11/28/21 4:40 PM) [facility] Work Phone: LABORATORYOrdered By: SYSTEM SYSTEM on 11-28-2021 Basophils (Bld) [#/Vol] 0.1 103/mcL Invalid Interpretation Code 0.0 - 0.3 10^3/mcL Workflow SS Basophils/100 WBC (Bld) 0.8 % Invalid Interpretation Code 0.0 - 2.5 % AH Workflow SS Calcium [Mass/Vol] 9.0 mg/dL Invalid Interpretation Code 8.7 - 10.4 mg/dL ADM SS Chloride [Moles/Vol] 92 mmol/L Invalid Interpretation Code 98 - 110 mEq/L ADM SS CO2 [Moles/Vol] 37 mmol/L Invalid Interpretation Code 22 - 32 mEq/L AH ADM SS Creatinine [Mass/Vol] 0.90 mg/dL Invalid Interpretation Code 0.50 - 1.20 mg/dL AH ADM SS Electrolyte Balance 6.0 mEq/L Invalid Interpretation Code 4.0 - 15.0 mEq/L AH ADM SS Eosinophils (Bld) [#/Vol] 0.4 103/mcL Invalid Interpretation Code 0.0 - 0.7 10^3/mcL AH Workflow SS Eosinophils/100 WBC (Bld) 2.9 % Invalid Interpretation Code 0.0 - 6.0 % AH Workflow SS Erythrocyte distribution width (RBC) [Ratio] 14.1 % Invalid Interpretation Code 11.5 - 15.5 % AH Workflow SS GFR/1.73 sq M.predicted among blacks MDRD (S/P/Bld) [Vol rate/Area] ml/min/1.73sqm Invalid Interpretation Code AH ADM SS GFR/1.73 sq M.predicted among non-blacks MDRD (S/P/Bld) [Vol rate/Area] ml/min/1.73sqm Invalid Interpretation Code AH ADM SS Glucose [Mass/Vol] 208 mg/dL Invalid Interpretation Code 82 - 115 mg/dL AH ADM SS Hematocrit (Bld) [Volume fraction] 34.4 % Invalid Interpretation Code 34.0 - 46.0 % AH Workflow SS Hemoglobin (Bld) [Mass/Vol] 11.2 G/dL Invalid Interpretation Code 12.0 - 16.0 G/dL AH Workflow SS Lymphocytes (Bld) [#/Vol] 2.0 103/mcL Invalid Interpretation Code 0.9 - 4.3 10^3/mcL AH Workflow SS Lymphocytes/100 WBC (Bld) 13.5 % Invalid Interpretation Code 20.0 - 40.0 % AH Workflow SS MCH (RBC) [Entitic mass] 29.5 pg Invalid Interpretation Code 27.0 - 33.0 pg AH Workflow SS MCHC 32.6 G/dL Invalid Interpretation Code 32.0 - 36.0 G/dL AH Workflow SS MCV (RBC) [Entitic vol] 90.5 fL Invalid Interpretation Code 80.0 - 99.0 fL AH Workflow SS Monocytes (Bld) [#/Vol] 1.1 103/mcL [...] fL AH Workflow SS Platelets (Bld) [#/Vol] 353 103/mcL Invalid Interpretation Code 150 - 450 10^3/mcL AH Workflow SS Potassium [Moles/Vol] 3.7 mmol/L Invalid Interpretation Code 3.5 - 5.0 mEq/L AH ADM SS RBC (Bld) [#/Vol] 3.80 106/mcL Invalid Interpretation Code 4.10 - 5.30 10^6/mcL AH Workflow SS Sodium [Moles/Vol] 135 mmol/L Invalid Interpretation Code 136 - 145 mEq/L ADM SS Urea nitrogen [Mass/Vol] 21.0 mg/dL [...] Auto Chem SS XR CHEST 2 VIEWSon 2 XR CHEST [...] Date: 11/28/2021 8:13:29 AM Ordering Provider: KAELYN DREW [facility] ([place]) .Auto Diffon 11-27-2021 Basophil, Absolute 0.1 10 3/mcL Normal 0.0-0.3 [facility] ([place]) Comment on above: Performed By: #### H CTRP, HGBRP, GLURP, CLRP, NARP, BGRP, KRP, CARP #### [address] [address] Basophils/100 WBC (Bld) 0.5 % Normal 0.0-2.5 A [facility] ([place]) Comment on above: Performed By: #### H CTRP, HGBRP, GLURP, CLRP, NARP, BGRP, KRP, CARP #### [address] [address] Eosinophil, Absolute 0.4 10 3/mcL Normal 0.0-0.7 [facility] ([place]) Comment on above: Performed By: #### H CTRP, HGBRP, GLURP, CLRP, NARP, BGRP, KRP, CARP #### [address] [address] Eosinophils/100 WBC (Bld) 2.0 % Normal 0.0-6.0 [facility] ([place]) Comment on above: Performed By: #### H CTRP, HGBRP, GLURP, CLRP, NARP, BGRP, KRP, CARP #### [address] [address] Lymphocyte, Absolute 2.2 10 3/mcL Normal 0.9-4.3 [facility] ([place]) Comment on above: Performed By: #### H CTRP, HGBRP, GLURP, CLRP, NARP, BGRP, KRP, CARP #### [address] [address] Lymphocytes/100 WBC (Bld) 11.6 % Low 20.0-40.0 [facility] ([place]) Comment on above: Performed By: #### H CTRP, HGBRP, GLURP, CLRP, NARP, BGRP, KRP, CARP #### [address] [address] Monocyte, Absolute 1.3 10 3/mcL Normal 0.1-1.4 [facility] ([place] Comment on above: Performed By: #### H CTRP, HGBRP, GLURP, CLRP, NARP, BGRP, KRP, CARP #### [address] [address] Monocytes/100 WBC (Bld) 6.7 % Normal 2.0-13.0 A [facility] ([place]) Comment on above: Performed By: #### H CTRP, HGBRP, GLURP, CLRP, NARP, BGRP, KRP, CARP #### [address] [address] Neutrophils/100 WBC (Bld) 79.2 % High 50.0-75.0 [facility] ([place] Comment on above: Performed By: #### H CTRP, HGBRP, GLURP, CLRP, NARP, BGRP, KRP, CARP #### [address] [address] .GFRon 11-27-2021 GFR >60 Normal [facility] ([place]) Comment on above: Result Comment: GFR Population [...] GLURP, CLRP, NARP, BGRP, KRP, CARP #### [address] [address] GFR Non- >60 Normal [facility] ([place]) Comment on above: Result Comment: GFR Population [...] GLURP, CLRP, NARP, BGRP, KRP, CARP #### [place] [address] .NEUABSon 11-27-2021 Neutrophil, Absolute 15.1 10 3/mcL High 2.3-8.1 A [facility] ([place]) Comment on above: Performed By: #### H CTRP, HGBRP, GLURP, CLRP, NARP, BGRP, KRP, CARP #### [place] [address] BGon 11-27-2021 Barometric Pressure 733 mmHg Normal [facility] ([place]) Comment on above: Performed By: #### H CTRP, HGBRP, GLURP, CLRP, NARP, BGRP, KRP, CARP #### [place] [address] Base excess Calc (Bld) [Moles/Vol] 10.2 mmol/L Normal [facility] ([place] Comment on above: Performed By: #### H CTRP, HGBRP, GLURP, CLRP, NARP, BGRP, KRP, CARP #### [place] [address] CO2 [Moles/Vol] 38.8 mmol/L High 22.0-30.0 [facility] ([place] Comment on above: Performed By: #### H CTRP, HGBRP, GLURP, CLRP, NARP, BGRP, KRP, CARP #### [address] [address] HCO3 (Bld) [Moles/Vol] 37.1 mmol/L High 21.0-29.0 A [facility] ([place]) Comment on above: Performed By: #### H CTRP, HGBRP, GLURP, CLRP, NARP, BGRP, KRP, CARP #### [place] [id number] Oxygen (Bld) [Partial pressure] 74.1 mm[Hg] Normal 74.0-108.0 [facility] ([place]) Comment on above: Performed By: #### H CTRP, HGBRP, GLURP, CLRP, NARP, BGRP, KRP, CARP #### [place] [address] Oxygen saturation in Blood 94.8 % Normal 92.0-96.0 [facility] ([place]) Comment on above: Performed By: #### H CTRP, HGBRP, GLURP, CLRP, NARP, BGRP, KRP, CARP #### [address] [address] pCO2 58.3 mmHg High 32.0-46.0 [facility] ([place]) Comment on above: Performed By: #### H CTRP, HGBRP, GLURP, CLRP, NARP, BGRP, KRP, CARP #### [place] [address] pH (Bld) 7.421 [pH] Normal 7.380-7.460 [facility] ([place]) Comment on above: Performed By: #### H CTRP, HGBRP, GLURP, CLRP, NARP, BGRP, KRP, CARP #### [address] [address] CBCon 11-27-2021 Erythrocyte distribution width (RBC) [Ratio] 13.6 % Normal 11.5-15.5 [facility] ([place]) Comment on above: Performed By: #### H CTRP, HGBRP, GLURP, CLRP, NARP, BGRP, KRP, CARP #### [place] [id number] Hematocrit (Bld) [Volume fraction] 35.1 % Normal 34.0-46.0 [facility] ([place] Comment on above: Performed By: #### H CTRP, HGBRP, GLURP, CLRP, NARP, BGRP, KRP, CARP #### [place] [address] Hgb 11.6 G/dL Low 12.0-16.0 [facility] ([place]) Comment on above: Performed By: #### H CTRP, HGBRP, GLURP, CLRP, NARP, BGRP, KRP, CARP #### [place] [id number] MCH (RBC) [Entitic mass] 29.7 pg Normal 27.0-33.0 [facility] ([place] Comment on above: Performed By: #### H CTRP, HGBRP, GLURP, CLRP, NARP, BGRP, KRP, CARP #### [place] [address] MCHC 32.9 G/dL Normal 32.0-36.0 [facility] ([place]) Comment on above: Performed By: #### H CTRP, HGBRP, GLURP, CLRP, NARP, BGRP, KRP, CARP #### [place] [id number] MCV (RBC) [Entitic vol] 90.3 fL Normal 80.0-99.0 A [facility] ([place]) Comment on above: Performed By: #### H CTRP, HGBRP, GLURP, CLRP, NARP, BGRP, KRP, CARP #### [place] [id number] Platelet 322 10 3/mcL Normal 150-450 [facility] ([place]) Comment on above: Performed By: #### H CTRP, HGBRP, GLURP, CLRP, NARP, BGRP, KRP, CARP #### [place] [phone] Platelet mean volume (Bld) [Entitic vol] 8.0 fL Normal 6.6-10.5 [facility] ([place]) Comment on above: Performed By: #### H CTRP, HGBRP, GLURP, CLRP, NARP, BGRP, KRP, CARP #### [address] [address] RBC 3.89 10 6/mcL Low 4.10-5.30 [facility] ([place] Comment on above: Performed By: #### H CTRP, HGBRP, GLURP, CLRP, NARP, BGRP, KRP, CARP #### [address] [address] WBC 19.1 10 3/mcL High 4.5-10.8 [facility] ([place]) Comment on above: Performed By: #### H CTRP, HGBRP, GLURP, CLRP, NARP, BGRP, KRP, CARP #### [address] [address] CMPon 11-27-2021 Albumin Level 3.4 G/dL Normal 3.2-4.8 [facility] ([place]) Comment on above: Performed By: #### H CTRP, HGBRP, GLURP, CLRP, NARP, BGRP, KRP, CARP #### [address] [address] Albumin/Globulin [Mass ratio] 1.0 {ratio} Normal 0.9-1.6 [facility] ([place]) Comment on above: Performed By: #### H CTRP, HGBRP, GLURP, CLRP, NARP, BGRP, KRP, CARP #### [address] [address] ALP [Catalytic activity/Vol] 79 U/L Normal 38-126 [facility] ([place]) Comment on above: Performed By: #### H CTRP, HGBRP, GLURP, CLRP, NARP, BGRP, KRP, CARP #### [address] [address] ALT [Catalytic activity/Vol] 20 U/L Normal 10-49 [facility] ([place]) Comment on above: Performed By: #### H CTRP, HGBRP, GLURP, CLRP, NARP, BGRP, KRP, CARP #### [address] [address] AST [Catalytic activity/Vol] 20 U/L Normal 8-34 [facility] ([place]) Comment on above: Performed By: #### H CTRP, HGBRP, GLURP, CLRP, NARP, BGRP, KRP, CARP #### [address] [address] Bili Total 0.80 mg/dL Normal 0.20-1.20 [facility] ([place]) Comment on above: Result Comment: Use of this assay is not recommended for patients undergoing treatment with eltrombopag due to the potential for falsely elevated results. Performed By: #### H CTRP, HGBRP, GLURP, CLRP, NARP, BGRP, KRP, CARP #### [place] [id number] BUN/Creatinine Ratio 21.4 ratio Normal 10.0-22.0 [facility] ([place]) Comment on above: Performed By: #### H CTRP, HGBRP, GLURP, CLRP, NARP, BGRP, KRP, CARP #### [address] [address] Calcium [Mass/Vol] 9.0 mg/dL Normal 8.7-10.4 [facility] ([place]) Comment on above: Performed By: #### H CTRP, HGBRP, GLURP, CLRP, NARP, BGRP, KRP, CARP #### [address] [address] Chloride [Moles/Vol] 96 mmol/L Low 98-110 [facility] ([place]) Comment on above: Performed By: #### H CTRP, HGBRP, GLURP, CLRP, NARP, BGRP, KRP, CARP #### [address] [address] CO2 [Moles/Vol] 33 mmol/L High 22-32 [facility] ([place]) Comment on above: Performed By: #### H CTRP, HGBRP, GLURP, CLRP, NARP, BGRP, KRP, CARP #### [address] [address] Creatinine [Mass/Vol] 0.70 mg/dL Normal 0.50-1.20 [facility] ([place]) Comment on above: Performed By: #### H CTRP, HGBRP, GLURP, CLRP, NARP, BGRP, KRP, CARP #### [address] [address] Electrolyte Balance 6.0 mEq/L Normal 4.0-15.0 [facility] ([place]) Comment on above: Performed By: #### H CTRP, HGBRP, GLURP, CLRP, NARP, BGRP, KRP, CARP #### [address] [address] Globulin 3.4 G/dL Normal 1.5-3.8 [facility] ([place]) Comment on above: Performed By: #### H CTRP, HGBRP, GLURP, CLRP, NARP, BGRP, KRP, CARP #### [address] [address] Glucose [Mass/Vol] 142 mg/dL High 82-115 [facility] ([place]) Comment on above: Performed By: #### H CTRP, HGBRP, GLURP, CLRP, NARP, BGRP, KRP, CARP #### [address] [address] Potassium [Moles/Vol] 4.1 mmol/L Normal 3.5-5.0 [facility] ([place]) Comment on above: Performed By: #### H CTRP, HGBRP, GLURP, CLRP, NARP, BGRP, KRP, CARP #### [address] [address] Sodium [Moles/Vol] 135 mmol/L Low 136-145 [facility] ([place]) Comment on above: Performed By: #### H CTRP, HGBRP, GLURP, CLRP, NARP, BGRP, KRP, CARP #### [address] [address] Total Protein 6.8 G/dL Normal 5.7-8.2 [facility] ([place]) Comment on above: Result Comment: No te - New Reference Range in effect 19 Performed By: #### H CTRP, HGBRP, GLURP, CLRP, NARP, BGRP, KRP, CARP #### [address] [address] Urea nitrogen [Mass/Vol] 15.0 mg/dL Normal 8.0-22.0 [facility] ([place]) Comment on above: Performed By: #### H CTRP, HGBRP, GLURP, CLRP, NARP, BGRP, KRP, CARP #### [address] [address] LABORATORYOrdered By: SYSTEM SYSTEM on 11-27-2021 Albumin BCP dye [Mass/Vol] 3.4 G/dL Invalid Interpretation Code 3.2 - 4.8 G/dL ADM SS Albumin/Globulin [Mass ratio] 1.0 {ratio} [...] Invalid Interpretation Code 0.0 - 0.3 10^3/mcL Workflow SS Basophils/100 WBC (Bld) 0.5 % Invalid Interpretation Code 0.0 - 2.5 % Workflow SS Bilirubin [Mass/Vol] 0.80 mg/dL Invalid Interpretation Code 0.20 - 1.20 mg/dL AH ADM SS Calcium [Mass/Vol] 9.0 mg/dL Invalid Interpretation Code 8.7 - 10.4 mg/dL AH ADM SS Chloride [Moles/Vol] 96 mmol/L Invalid Interpretation Code 98 - 110 mEq/L ADM SS CO2 [Moles/Vol] 33 mmol/L Invalid Interpretation Code 22 - 32 mEq/L ADM SS Creatinine [Mass/Vol] 0.70 mg/dL Invalid Interpretation Code 0.50 - 1.20 mg/dL ADM SS Electrolyte Balance 6.0 mEq/L Invalid Interpretation Code 4.0 - 15.0 mEq/L ADM SS Eosinophils (Bld) [#/Vol] 0.4 103/mcL Invalid Interpretation Code 0.0 - 0.7 10^3/mcL Workflow SS Eosinophils/100 WBC (Bld) 2.0 % [...] 46.0 % Workflow SS Hemoglobin (Bld) [Mass/Vol] 11.6 G/dL Invalid Interpretation Code 12.0 - 16.0 G/dL Workflow SS Lymphocytes (Bld) [#/Vol] 2.2 103/mcL Invalid Interpretation Code 0.9 - 4.3 10^3/mcL Workflow SS Lymphocytes/100 WBC (Bld) 11.6 % Invalid Interpretation Code 20.0 - 40.0 % Workflow SS MCH (RBC) [Entitic mass] 29.7 pg Invalid Interpretation Code 27.0 - 33.0 pg Workflow SS MCHC 32.9 G/dL Invalid Interpretation Code 32.0 - 36.0 G/dL Workflow SS MCV (RBC) [Entitic vol] 90.3 fL Invalid Interpretation Code 80.0 - 99.0 fL Workflow SS Monocytes (Bld) [#/Vol] 1.3 103/mcL Invalid Interpretation Code 0.1 - 1.4 10^3/mcL Workflow SS Monocytes/100 WBC (Bld) 6.7 % Invalid Interpretation Code 2.0 - 13.0 % Workflow SS Neutrophils (Bld) [#/Vol] 15.1 103/mcL Invalid Interpretation Code 2.3 - 8.1 10^3/mcL Workflow SS Neutrophils/100 WBC (Bld) 79.2 % Invalid Interpretation Code 50.0 - 75.0 % Workflow SS Platelet mean volume (Bld) [Entitic vol] 8.0 fL Invalid Interpretation Code 6.6 - 10.5 fL Workflow SS Platelets (Bld) [#/Vol] 322 103/mcL Invalid Interpretation Code 150 - 450 10^3/mcL Workflow SS Potassium [Moles/Vol] 4.1 mmol/L Invalid Interpretation Code 3.5 - 5.0 mEq/L ADM SS Protein [Mass/Vol] 6.8 G/dL Invalid [...] Invalid Interpretation Code 10.0 - 22.0 ratio ADM SS WBC (Bld) [#/Vol] 19.1 103/mcL Invalid Interpretation Code 4.5 - 10.8 10^3/mcL Workflow SS XR CHEST 2 VIEWSon 2 XR CHEST [...] 11/27/2021 7:51:49 AM Ordering Provider: NAT Mercado [facility] ([place]) .Auto Diffon 11-26-2021 Basophil, Absolute 0.1 10 3/mcL Normal 0.0-0.3 [facility] ([place]) Basophils/100 WBC (Bld) 0.4 % Normal 0.0-2.5 A [facility] ([place]) Eosinophil, Absolute 0.1 10 3/mcL Normal 0.0-0.7 [facility] ([place]) Eosinophils/100 WBC (Bld) 0.7 % Normal 0.0-6.0 [facility] ([place] Lymphocyte, Absolute 2.2 10 3/mcL Normal 0.9-4.3 [facility] ([place] Lymphocytes/100 WBC (Bld) 11.0 % Low 20.0-40.0 [facility] ([place] Monocyte, Absolute 1.5 10 3/mcL High 0.1-1.4 [facility] ([place] Monocytes/100 WBC (Bld) 7.4 % Normal 2.0-13.0 A [facility] ([place] Neutrophils/100 WBC (Bld) 80.5 % High 50.0-75.0 [facility] ([place] Basophil, Absolute 0.1 10 3/mcL Normal 0.0-0.3 [facility] ([place] Comment on above: Performed By: #### H CTRP, HGBRP, GLURP, CLRP, NARP, BGRP, KRP, CARP #### [address] [address] Basophils/100 WBC (Bld) 0.4 % Normal 0.0-2.5 A [facility] ([place] Comment on above: Performed By: #### H CTRP, HGBRP, GLURP, CLRP, NARP, BGRP, KRP, CARP #### [address] [address] Eosinophil, Absolute 0.1 10 3/mcL Normal 0.0-0.7 [facility] ([place]) Comment on above: Performed By: #### H CTRP, HGBRP, GLURP, CLRP, NARP, BGRP, KRP, CARP #### [address] [address] Eosinophils/100 WBC (Bld) 0.5 % Normal 0.0-6.0 [facility] ([place] Comment on above: Performed By: #### H CTRP, HGBRP, GLURP, CLRP, NARP, BGRP, KRP, CARP #### [address] [address] Lymphocyte, Absolute 2.0 10 3/mcL Normal 0.9-4.3 [facility] ([place] Comment on above: Performed By: #### H CTRP, HGBRP, GLURP, CLRP, NARP, BGRP, KRP, CARP #### [address] [address] Lymphocytes/100 WBC (Bld) 10.0 % Low 20.0-40.0 [facility] ([place] Comment on above: Performed By: #### H CTRP, HGBRP, GLURP, CLRP, NARP, BGRP, KRP, CARP #### [address] [address] Monocyte, Absolute 1.5 10 3/mcL High 0.1-1.4 [facility] ([place] Comment on above: Performed By: #### H CTRP, HGBRP, GLURP, CLRP, NARP, BGRP, KRP, CARP #### [address] [address] Monocytes/100 WBC (Bld) 7.5 % Normal 2.0-13.0 [facility] ([place]) Comment on above: Performed By: #### H CTRP, HGBRP, GLURP, CLRP, NARP, BGRP, KRP, CARP #### [address] [address] Neutrophils/100 WBC (Bld) 81.6 % High 50.0-75.0 [facility] ([place] Comment on above: Performed By: #### H CTRP, HGBRP, GLURP, CLRP, NARP, BGRP, KRP, CARP #### [address] [address] .GFRon 11-26-2021 GFR >60 Normal [facility] ([place] Comment on above: Result Comment: GFR Population [...] GLURP, CLRP, NARP, BGRP, KRP, CARP #### [address] [address] GFR Non- >60 Normal [facility] ([place] Comment on above: Result Comment: GFR Population [...] GLURP, CLRP, NARP, BGRP, KRP, CARP #### [address] [address] .NEUABSon 11-26-2021 Neutrophil, Absolute 16.0 10 3/mcL High 2.3-8.1 A [facility] ([place] Neutrophil, Absolute 16.6 10 3/mcL High 2.3-8.1 A [facility] ([place] Comment on above: Performed By: #### H CTRP, HGBRP, GLURP, CLRP, NARP, BGRP, KRP, CARP #### [address] [address] [facility] 11-26-2021 Barometric Pressure 734 mmHg Normal [facility] ([place]) Comment on above: Performed By: #### H CTRP, HGBRP, GLURP, CLRP, NARP, BGRP, KRP, CARP #### [place] [address] Base excess Calc (Bld) [Moles/Vol] 11.2 mmol/L Normal [facility] ([place] Comment on above: Performed By: #### H CTRP, HGBRP, GLURP, CLRP, NARP, BGRP, KRP, CARP #### [place] [address] CO2 [Moles/Vol] 39.8 mmol/L High 22.0-30.0 [facility] ([place] Comment on above: Performed By: #### H CTRP, HGBRP, GLURP, CLRP, NARP, BGRP, KRP, CARP #### [address] [address] HCO3 (Bld) [Moles/Vol] 38.0 mmol/L High 21.0-29.0 A [facility] ([place] Comment on above: Performed By: #### H CTRP, HGBRP, GLURP, CLRP, NARP, BGRP, KRP, CARP #### [place] [id number] Oxygen (Bld) [Partial pressure] 68.4 mm[Hg] Low 74.0-108.0 [facility] ([place] Comment on above: Performed By: #### H CTRP, HGBRP, GLURP, CLRP, NARP, BGRP, KRP, CARP #### [address] [address] Oxygen saturation in Blood 93.8 % Normal 92.0-96.0 [facility] ([place] Comment on above: Performed By: #### H CTRP, HGBRP, GLURP, CLRP, NARP, BGRP, KRP, CARP #### [address] [address] pCO2 57.9 mmHg High 32.0-46.0 [facility] ([place] Comment on above: Performed By: #### H CTRP, HGBRP, GLURP, CLRP, NARP, BGRP, KRP, CARP #### [address] [address] pH (Bld) 7.435 [pH] Normal 7.380-7.460 [facility] ([place] Comment on above: Performed By: #### H CTRP, HGBRP, GLURP, CLRP, NARP, BGRP, KRP, CARP #### [address] [address] Barometric Pressure 711 mmHg Normal [facility] ([place] Comment on above: Performed By: #### H CTRP, HGBRP, GLURP, CLRP, NARP, BGRP, KRP, CARP #### [address] [address] Base excess Calc (Bld) [Moles/Vol] 3.2 mmol/L Normal [facility] ([place] Comment on above: Performed By: #### H CTRP, HGBRP, GLURP, CLRP, NARP, BGRP, KRP, CARP #### [address] [address] CO2 [Moles/Vol] 30.3 mmol/L High 22.0-30.0 [facility] ([place] Comment on above: Performed By: #### H CTRP, HGBRP, GLURP, CLRP, NARP, BGRP, KRP, CARP #### [address] [address] HCO3 (Bld) [Moles/Vol] 28.8 mmol/L Normal 21.0-29.0 A [facility] ([place] Comment on above: Performed By: #### H CTRP, HGBRP, GLURP, CLRP, NARP, BGRP, KRP, CARP #### [address] [address] Oxygen (Bld) [Partial pressure] 103.1 mm[Hg] Normal 74.0-108.0 [facility] ([place] Comment on above: Performed By: #### H CTRP, HGBRP, GLURP, CLRP, NARP, BGRP, KRP, CARP #### [address] [address] Oxygen saturation in Blood 97.9 % High 92.0-96.0 [facility] ([place] Comment on above: Performed By: #### H CTRP, HGBRP, GLURP, CLRP, NARP, BGRP, KRP, CARP #### [address] [address] pCO2 48.2 mmHg High 32.0-46.0 [facility] ([place] Comment on above: Performed By: #### H CTRP, HGBRP, GLURP, CLRP, NARP, BGRP, KRP, CARP #### [address] [address] pH (Bld) 7.394 [pH] Normal 7.380-7.460 [facility] ([place] Comment on above: Performed By: #### H CTRP, HGBRP, GLURP, CLRP, NARP, BGRP, KRP, CARP #### [address] [address] BMPon 11-26-2021 BUN/Creatinine Ratio 26.5 ratio High 10.0-22.0 [facility] ([place] Comment on above: Performed By: #### H CTRP, HGBRP, GLURP, CLRP, NARP, BGRP, KRP, CARP #### [address] [address] Calcium [Mass/Vol] 8.3 mg/dL Low 8.7-10.4 [facility] ([place] Comment on above: Performed By: #### H CTRP, HGBRP, GLURP, CLRP, NARP, BGRP, KRP, CARP #### [address] [address] Chloride [Moles/Vol] 98 mmol/L Normal 98-110 [facility] ([place] Comment on above: Performed By: #### H CTRP, HGBRP, GLURP, CLRP, NARP, BGRP, KRP, CARP #### [address] [address] CO2 [Moles/Vol] 28 mmol/L Normal 22-32 [facility] ([place] Comment on above: Performed By: #### H CTRP, HGBRP, GLURP, CLRP, NARP, BGRP, KRP, CARP #### [address] [address] Creatinine [Mass/Vol] 0.68 mg/dL Normal 0.50-1.20 [facility] ([place]) Comment on above: Performed By: #### H CTRP, HGBRP, GLURP, CLRP, NARP, BGRP, KRP, CARP #### [address] [address] Electrolyte Balance 7.0 mEq/L Normal 4.0-15.0 [facility] ([place] Comment on above: Performed By: #### H CTRP, HGBRP, GLURP, CLRP, NARP, BGRP, KRP, CARP #### [address] [address] Glucose [Mass/Vol] 176 mg/dL High 82-115 [facility] ([place] Comment on above: Performed By: #### H CTRP, HGBRP, GLURP, CLRP, NARP, BGRP, KRP, CARP #### [address] [address] Potassium [Moles/Vol] 4.2 mmol/L Normal 3.5-5.0 [facility] ([place] Comment on above: Performed By: #### H CTRP, HGBRP, GLURP, CLRP, NARP, BGRP, KRP, CARP #### [address] [address] Sodium [Moles/Vol] 133 mmol/L Low 136-145 [facility] ([place] Comment on above: Performed By: #### H CTRP, HGBRP, GLURP, CLRP, NARP, BGRP, KRP, CARP #### [address] [address] Urea nitrogen [Mass/Vol] 18.0 mg/dL Normal 8.0-22.0 [facility] ([place] Comment on above: Performed By: #### H CTRP, HGBRP, GLURP, CLRP, NARP, BGRP, KRP, CARP #### [address] [address] CBCon 11-26-2021 Erythrocyte distribution width (RBC) [Ratio] 14.1 % Normal 11.5-15.5 [facility]) Hematocrit (Bld) [Volume fraction] 31.3 % Low 34.0-46.0 [facility] ([place]) Hgb 10.5 G/dL Low 12.0-16.0 [facility] ([place] MCH (RBC) [Entitic mass] 30.1 pg Normal 27.0-33.0 [facility] ([place] MCHC 33.5 G/dL Normal 32.0-36.0 [facility] ([place] MCV (RBC) [Entitic vol] 89.8 fL Normal 80.0-99.0 A [facility] ([place]) Platelet 268 10 3/mcL Normal 150-450 [facility]) Platelet mean volume (Bld) [Entitic vol] 8.4 fL Normal 6.6-10.5 [facility] ([place] RBC 3.49 10 6/mcL Low 4.10-5.30 [facility] ([place] WBC 19.8 10 3/mcL High 4.5-10.8 [facility] ([place] Erythrocyte distribution width (RBC) [Ratio] 14.0 % Normal 11.5-15.5 [facility] ([place] Comment on above: Performed By: #### H CTRP, HGBRP, GLURP, CLRP, NARP, BGRP, KRP, CARP #### [place] [address] Hematocrit (Bld) [Volume fraction] 31.7 % Low 34.0-46.0 [facility] ([place] Comment on above: Performed By: #### H CTRP, HGBRP, GLURP, CLRP, NARP, BGRP, KRP, CARP #### [place] [address] Hgb 10.3 G/dL Low 12.0-16.0 [facility] ([place] Comment on above: Performed By: #### H CTRP, HGBRP, GLURP, CLRP, NARP, BGRP, KRP, CARP #### [place] [address] MCH (RBC) [Entitic mass] 29.6 pg Normal 27.0-33.0 [facility] ([place] Comment on above: Performed By: #### H CTRP, HGBRP, GLURP, CLRP, NARP, BGRP, KRP, CARP #### [place] [phone] MCHC 32.7 G/dL Normal 32.0-36.0 [facility] ([place] Comment on above: Performed By: #### H CTRP, HGBRP, GLURP, CLRP, NARP, BGRP, KRP, CARP #### [place] [phone] MCV (RBC) [Entitic vol] 90.7 fL Normal 80.0-99.0 A [facility] ([place] Comment on above: Performed By: #### H CTRP, HGBRP, GLURP, CLRP, NARP, BGRP, KRP, CARP #### [address] [address] Platelet 243 10 3/mcL Normal 150-450 [facility] ([place] Comment on above: Performed By: #### H CTRP, HGBRP, GLURP, CLRP, NARP, BGRP, KRP, CARP #### [address] [address] Platelet mean volume (Bld) [Entitic vol] 8.6 fL Normal 6.6-10.5 [facility] ([place] Comment on above: Performed By: #### H CTRP, HGBRP, GLURP, CLRP, NARP, BGRP, KRP, CARP #### [address] [address] RBC 3.49 10 6/mcL Low 4.10-5.30 [facility] ([place] Comment on above: Performed By: #### H CTRP, HGBRP, GLURP, CLRP, NARP, BGRP, KRP, CARP #### [address] [address] WBC 20.3 10 3/mcL High 4.5-10.8 [facility] ([place] Comment on above: Performed By: #### H CTRP, HGBRP, GLURP, CLRP, NARP, BGRP, KRP, CARP #### [address] [address] LABORATORYOrdered By: Nicci erickson on 11-26-2021 Barometric [...] AM) Invalid Interpretation Code 5.0 - 8.0 Auto Urine SS UA Protein Negative Invalid Interpretation Code Negativemg/ dL Auto Urine SS UA Spec Grav 1.015 (11/26/21 7:27 AM) Invalid Interpretation Code 1.006-1.029 Auto Urine SS UA Specimen Type Catheter (11/26/21 7:27 AM) Invalid Interpretation Code Auto Urine SS UA Urobilinogen 0.2 E.U./dL Invalid Interpretation Code 0.2-1.0E.U. /dL Auto Urine SS No Panel Informationon 11-26 Culture Urine No growth at 48 hours. [facility] Work Phone: UAon 11-26-2021 Color (U) Yellow Normal [facility] ([place] Comment on above: Performed By: #### H CTRP, HGBRP, GLURP, CLRP, NARP, BGRP, KRP, CARP #### [address] [address] Glucose (U) [Mass/Vol] 100 mg/dL Abnormal Negative [facility] ([place]) Comment on above: Performed By: #### H CTRP, HGBRP, GLURP, CLRP, NARP, BGRP, KRP, CARP #### [address] [address] Ketones Ql (U) 15 mg/dL Abnormal Neg-Trace [facility] ([place] Comment on above: Performed By: #### H CTRP, HGBRP, GLURP, CLRP, NARP, BGRP, KRP, CARP #### [address] [address] UA Appear Clear Normal Clear [facility] ([place] Comment on above: Performed By: #### H CTRP, HGBRP, GLURP, CLRP, NARP, BGRP, KRP, CARP #### [address] [address] UA Blood Negative Normal Neg-Trace [facility] ([place] Comment on above: Performed By: #### H CTRP, HGBRP, GLURP, CLRP, NARP, BGRP, KRP, CARP #### [address] [address] UA Leuk Est Negative Normal Negative [facility] ([place] Comment on above: Performed By: #### H CTRP, HGBRP, GLURP, CLRP, NARP, BGRP, KRP, CARP #### [address] [address] UA Nitrite Negative Normal Negative [facility] ([place] Comment on above: Performed By: #### H CTRP, HGBRP, GLURP, CLRP, NARP, BGRP, KRP, CARP #### [address] [address] UA pH 5.0 Normal 5.0 - 8.0 [facility] ([place] Comment on above: Performed By: #### H CTRP, HGBRP, GLURP, CLRP, NARP, BGRP, KRP, CARP #### [address] [address] UA Protein Negative Normal Negative [facility] ([place] Comment on above: Performed By: #### H CTRP, HGBRP, GLURP, CLRP, NARP, BGRP, KRP, CARP #### [address] [address] UA Spec Grav 1.015 Normal 1.006-1.029 [facility] ([place] Comment on above: Performed By: #### H CTRP, HGBRP, GLURP, CLRP, NARP, BGRP, KRP, CARP #### [address] [address] UA Specimen Type Catheter Normal [facility] ([place] Comment on above: Performed By: #### H CTRP, HGBRP, GLURP, CLRP, NARP, BGRP, KRP, CARP #### [address] [address] UA Urobilinogen 0.2 E.U./dL Normal 0.2-1.0 [facility] ([place] Comment on above: Performed By: #### H CTRP, HGBRP, GLURP, CLRP, NARP, BGRP, KRP, CARP #### [address] [address] Urobilinogen (U) [Mass/Vol] Negative Normal Neg-Trace [facility] ([place] Comment on above: Performed By: #### H CTRP, HGBRP, GLURP, CLRP, NARP, BGRP, KRP, CARP #### [address] [address] XR CHEST 1 VIEWon 11-26-2021 XR CHEST [...] Date: 11/26/2021 9:26:00 PM Ordering Provider: AL Mercado [facility] ([place] XR CHEST 1 VIEW ORIGINAL EXAMINATION: ONE [...] Date: 11/26/2021 6:50:40 AM Ordering Provider: NAT Mercado [facility] ([place]) .Auto Diffon 11-25-2021 Basophil, Absolute 0.0 10 3/mcL Normal 0.0-0.3 [facility] ([place] Comment on above: Performed By: #### H CTRP, HGBRP, GLURP, CLRP, NARP, BGRP, KRP, CARP #### [address] [address] Basophils/100 WBC (Bld) 0.2 % Normal 0.0-2.5 A [facility] ([place] Comment on above: Performed By: #### H CTRP, HGBRP, GLURP, CLRP, NARP, BGRP, KRP, CARP #### [address] [address] Eosinophil, Absolute 0.0 10 3/mcL Normal 0.0-0.7 [facility] ([place] Comment on above: Performed By: #### H CTRP, HGBRP, GLURP, CLRP, NARP, BGRP, KRP, CARP #### [address] [address] Eosinophils/100 WBC (Bld) 0.2 % Normal 0.0-6.0 [facility] ([place] Comment on above: Performed By: #### H CTRP, HGBRP, GLURP, CLRP, NARP, BGRP, KRP, CARP #### [address] [address] Lymphocyte, Absolute 2.0 10 3/mcL Normal 0.9-4.3 [facility] ([place] Comment on above: Performed By: #### H CTRP, HGBRP, GLURP, CLRP, NARP, BGRP, KRP, CARP #### [address] [address] Lymphocytes/100 WBC (Bld) 10.7 % Low 20.0-40.0 [facility] ([place] Comment on above: Performed By: #### H CTRP, HGBRP, GLURP, CLRP, NARP, BGRP, KRP, CARP #### [address] [address] Monocyte, Absolute 1.7 10 3/mcL High 0.1-1.4 [facility] ([place] Comment on above: Performed By: #### H CTRP, HGBRP, GLURP, CLRP, NARP, BGRP, KRP, CARP #### [address] [address] Monocytes/100 WBC (Bld) 9.3 % Normal 2.0-13.0 A [facility] ([place] Comment on above: Performed By: #### H CTRP, HGBRP, GLURP, CLRP, NARP, BGRP, KRP, CARP #### [address] [address] Neutrophils/100 WBC (Bld) 79.6 % High 50.0-75.0 [facility] ([place] Comment on above: Performed By: #### H CTRP, HGBRP, GLURP, CLRP, NARP, BGRP, KRP, CARP #### [address] [address] .GFRon 11-25-2021 GFR Non- >60 Normal [facility] ([place] Comment on above: Result Comment: GFR Population [...] GLURP, CLRP, NARP, BGRP, KRP, CARP #### [address] [address] GFR >60 Normal [facility] ([place] Comment on above: Result Comment: GFR Population [...] GLURP, CLRP, NARP, BGRP, KRP, CARP #### [address] [address] .NEUABSon 11-25-2021 Neutrophil, Absolute 14.6 10 3/mcL High 2.3-8.1 A [facility] ([place] Comment on above: Performed By: #### H CTRP, HGBRP, GLURP, CLRP, NARP, BGRP, KRP, CARP #### [address] 11-25-2021 Barometric Pressure 712 mmHg Normal [facility] ([place] Comment on above: Performed By: #### H CTRP, HGBRP, GLURP, CLRP, NARP, BGRP, KRP, CARP #### [address] [address] Base excess Calc (Bld) [Moles/Vol] 2.5 mmol/L Normal [facility] ([place] Comment on above: Performed By: #### H CTRP, HGBRP, GLURP, CLRP, NARP, BGRP, KRP, CARP #### [address] [address] CO2 [Moles/Vol] 28.1 mmol/L Normal 22.0-30.0 [facility] ([place] Comment on above: Performed By: #### H CTRP, HGBRP, GLURP, CLRP, NARP, BGRP, KRP, CARP #### [address] [address] HCO3 (Bld) [Moles/Vol] 26.8 mmol/L Normal 21.0-29.0 A [facility] ([place] Comment on above: Performed By: #### H CTRP, HGBRP, GLURP, CLRP, NARP, BGRP, KRP, CARP #### [address] [address] Oxygen (Bld) [Partial pressure] 72.8 mm[Hg] Low 74.0-108.0 [facility] ([place]) Comment on above: Performed By: #### H CTRP, HGBRP, GLURP, CLRP, NARP, BGRP, KRP, CARP #### [address] [address] Oxygen saturation in Blood 94.9 % Normal 92.0-96.0 [facility] ([place] Comment on above: Performed By: #### H CTRP, HGBRP, GLURP, CLRP, NARP, BGRP, KRP, CARP #### [address] [address] pCO2 40.3 mmHg Normal 32.0-46.0 [facility] ([place]) Comment on above: Performed By: #### H CTRP, HGBRP, GLURP, CLRP, NARP, BGRP, KRP, CARP #### [place] [id number] pH (Bld) 7.441 [pH] Normal 7.380-7.460 [facility] ([place]) Comment on above: Performed By: #### H CTRP, HGBRP, GLURP, CLRP, NARP, BGRP, KRP, CARP #### [address] [address] BMPon 11-25-2021 BUN/Creatinine Ratio 19.7 ratio Normal 10.0-22.0 [facility] ([place]) Comment on above: Performed By: #### H CTRP, HGBRP, GLURP, CLRP, NARP, BGRP, KRP, CARP #### [place] [address] Calcium [Mass/Vol] 7.9 mg/dL Low 8.7-10.4 [facility] ([place] Comment on above: Performed By: #### H CTRP, HGBRP, GLURP, CLRP, NARP, BGRP, KRP, CARP #### [place] [address] Chloride [Moles/Vol] 101 mmol/L Normal 98-110 [facility] ([place] Comment on above: Performed By: #### H CTRP, HGBRP, GLURP, CLRP, NARP, BGRP, KRP, CARP #### [place] [address] CO2 [Moles/Vol] 26 mmol/L Normal 22-32 [facility] ([place] Comment on above: Performed By: #### H CTRP, HGBRP, GLURP, CLRP, NARP, BGRP, KRP, CARP #### [place] [address] Creatinine [Mass/Vol] 0.66 mg/dL Normal 0.50-1.20 [facility] ([place] Comment on above: Performed By: #### H CTRP, HGBRP, GLURP, CLRP, NARP, BGRP, KRP, CARP #### [place] [address] Electrolyte Balance 10.0 mEq/L Normal 4.0-15.0 [facility] ([place] Comment on above: Performed By: #### H CTRP, HGBRP, GLURP, CLRP, NARP, BGRP, KRP, CARP #### [place] [address] Glucose [Mass/Vol] 89 mg/dL Normal 82-115 [facility] ([place] Comment on above: Performed By: #### H CTRP, HGBRP, GLURP, CLRP, NARP, BGRP, KRP, CARP #### [address] [address] Potassium [Moles/Vol] 3.8 mmol/L Normal 3.5-5.0 [facility] ([place] Comment on above: Performed By: #### H CTRP, HGBRP, GLURP, CLRP, NARP, BGRP, KRP, CARP #### [place] [address] Sodium [Moles/Vol] 137 mmol/L Normal 136-145 [facility] ([place]) Comment on above: Performed By: #### H CTRP, HGBRP, GLURP, CLRP, NARP, BGRP, KRP, CARP #### [place] [address] Urea nitrogen [Mass/Vol] 13.0 mg/dL Normal 8.0-22.0 [facility] ([place]) Comment on above: Performed By: #### H CTRP, HGBRP, GLURP, CLRP, NARP, BGRP, KRP, CARP #### [place] [address] CBCon 11-25-2021 Erythrocyte distribution width (RBC) [Ratio] 13.8 % Normal 11.5-15.5 [facility] ([place]) Comment on above: Performed By: #### H CTRP, HGBRP, GLURP, CLRP, NARP, BGRP, KRP, CARP #### [place] [address] Hematocrit (Bld) [Volume fraction] 31.4 % Low 34.0-46.0 [facility] ([place]) Comment on above: Performed By: #### H CTRP, HGBRP, GLURP, CLRP, NARP, BGRP, KRP, CARP #### [place] [address] Hgb 10.3 G/dL Low 12.0-16.0 [facility] ([place]) Comment on above: Performed By: #### H CTRP, HGBRP, GLURP, CLRP, NARP, BGRP, KRP, CARP #### [place] [id number] MCH (RBC) [Entitic mass] 29.5 pg Normal 27.0-33.0 [facility] ([place] Comment on above: Performed By: #### H CTRP, HGBRP, GLURP, CLRP, NARP, BGRP, KRP, CARP #### [place] [address] MCHC 32.8 G/dL Normal 32.0-36.0 [facility] ([place]) Comment on above: Performed By: #### H CTRP, HGBRP, GLURP, CLRP, NARP, BGRP, KRP, CARP #### [place] [address] MCV (RBC) [Entitic vol] 89.8 fL Normal 80.0-99.0 A [facility] ([place]) Comment on above: Performed By: #### H CTRP, HGBRP, GLURP, CLRP, NARP, BGRP, KRP, CARP #### [place] [address] Platelet 205 10 3/mcL Normal 150-450 [facility] ([place] Comment on above: Performed By: #### H CTRP, HGBRP, GLURP, CLRP, NARP, BGRP, KRP, CARP #### [place] [address] Platelet mean volume (Bld) [Entitic vol] 8.9 fL Normal 6.6-10.5 [facility] ([place]) Comment on above: Performed By: #### H CTRP, HGBRP, GLURP, CLRP, NARP, BGRP, KRP, CARP #### [place] [address] RBC 3.49 10 6/mcL Low 4.10-5.30 [facility] ([place] Comment on above: Performed By: #### H CTRP, HGBRP, GLURP, CLRP, NARP, BGRP, KRP, CARP #### [place] [id number] WBC 18.4 10 3/mcL High 4.5-10.8 [facility] ([place] Comment on above: Performed By: #### H CTRP, HGBRP, GLURP, CLRP, NARP, BGRP, KRP, CARP #### [address] [address] [place] 11-25-2021 Potassium [Moles/Vol] 4.3 mmol/L Normal 3.5-5.0 [facility] ([place]) Comment on above: Performed By: #### K #### [address] [address] LABORATORYOrdered By: Alma Rosa Cabrera on 11-25-2021 Cholesterol [Mass/Vol] 85 mg/dL Invalid Interpretation Code 50 - 199 mg/dL ADM SS Cholesterol in HDL [Mass/Vol] 34 mg/dL Invalid Interpretation Code 40 - 59 mg/dL ADM SS Cholesterol in LDL [Mass/Vol] 37 mg/dL Invalid Interpretation Code 0 - 129 mg/dL ADM SS Triglyceride [Mass/Vol] 72 mg/dL Invalid Interpretation Code 3 - 149 mg/dL AH ADM SS LIPIDon 11-25-2021 Cholesterol [Mass/Vol] 85 mg/dL Normal 50-199 [facility] ([place]) Comment on above: Result Comment: Chol esterol Reference Interval: Less than 200 Desirable 200-239 Borderline high risk 240 and above High risk Performed By: #### H CTRP, HGBRP, GLURP, CLRP, NARP, BGRP, KRP, CARP #### [address] [address] Cholesterol in HDL [Mass/Vol] 34 mg/dL Low 40-59 [facility] ([place] Comment on above: Performed By: #### H CTRP, HGBRP, GLURP, CLRP, NARP, BGRP, KRP, CARP #### [address] [address] Cholesterol in LDL [Mass/Vol] 37 mg/dL Normal 0-129 [facility] ([place] Comment on above: Performed By: #### H CTRP, HGBRP, GLURP, CLRP, NARP, BGRP, KRP, CARP #### [address] [address] Triglyceride [Mass/Vol] 72 mg/dL Normal 3-149 A [facility] ([place] Comment on above: Performed By: #### H CTRP, HGBRP, GLURP, CLRP, NARP, BGRP, KRP, CARP #### [facility] [address] [place] [id number] XR CHEST 1 VIEWon 11-25-2021 XR CHEST [...] 11/25/2021 6:55:32 AM Ordering Provider: NAT Mercado [facility] ([place] XR CHEST 1 VIEW ORIGINAL EXAMINATION: ONE [...] 11/24/2021 10:21:41 PM Ordering Provider: POLLY Mercado [facility] ([place]) .Auto Diffon 11-24-2021 Basophil, Absolute 0.0 10 3/mcL Normal 0.0-0.3 [facility] ([place]) Comment on above: Performed By: #### H CTRP, HGBRP, GLURP, CLRP, NARP, BGRP, KRP, CARP #### [address] [address] Basophils/100 WBC (Bld) 0.2 % Normal 0.0-2.5 A [facility] ([place] Comment on above: Performed By: #### H CTRP, HGBRP, GLURP, CLRP, NARP, BGRP, KRP, CARP #### [address] [address] Eosinophil, Absolute 0.0 10 3/mcL Normal 0.0-0.7 [facility] ([place] Comment on above: Performed By: #### H CTRP, HGBRP, GLURP, CLRP, NARP, BGRP, KRP, CARP #### [address] [address] Eosinophils/100 WBC (Bld) 0.0 % Normal 0.0-6.0 [facility] ([place] Comment on above: Performed By: #### H CTRP, HGBRP, GLURP, CLRP, NARP, BGRP, KRP, CARP #### [address] [address] Lymphocyte, Absolute 1.3 10 3/mcL Normal 0.9-4.3 [facility] ([place] Comment on above: Performed By: #### H CTRP, HGBRP, GLURP, CLRP, NARP, BGRP, KRP, CARP #### [address] [address] Lymphocytes/100 WBC (Bld) 8.8 % Low 20.0-40.0 [facility] ([place] Comment on above: Performed By: #### H CTRP, HGBRP, GLURP, CLRP, NARP, BGRP, KRP, CARP #### [address] [address] Monocyte, Absolute 1.0 10 3/mcL Normal 0.1-1.4 [facility] ([place] Comment on above: Performed By: #### H CTRP, HGBRP, GLURP, CLRP, NARP, BGRP, KRP, CARP #### [address] [address] Monocytes/100 WBC (Bld) 6.9 % Normal 2.0-13.0 A [facility] ([place] Comment on above: Performed By: #### H CTRP, HGBRP, GLURP, CLRP, NARP, BGRP, KRP, CARP #### [address] [address] Neutrophils/100 WBC (Bld) 84.1 % High 50.0-75.0 [facility] ([place] Comment on above: Performed By: #### H CTRP, HGBRP, GLURP, CLRP, NARP, BGRP, KRP, CARP #### [address] [address] .GFRon 11-24-2021 GFR Non- >60 Normal [facility] ([place] Comment on above: Result Comment: GFR Population [...] GLURP, CLRP, NARP, BGRP, KRP, CARP #### [place] [address] GFR >60 Normal [facility] ([place] Comment on above: Result Comment: GFR Population [...] GLURP, CLRP, NARP, BGRP, KRP, CARP #### [place] [address] .NEUABSon 11-24-2021 Neutrophil, Absolute 12.4 10 3/mcL High 2.3-8.1 A [facility] ([place] Comment on above: Performed By: #### H CTRP, HGBRP, GLURP, CLRP, NARP, BGRP, KRP, CARP #### [address] [address] BGon 11-24-2021 Barometric Pressure 707 mmHg Normal [facility] ([place]) Comment on above: Performed By: #### K #### [address] [address] Base excess Calc (Bld) [Moles/Vol] 1.1 mmol/L Normal [facility] ([place] Comment on above: Performed By: #### K #### [address] [address] CO2 [Moles/Vol] 27.3 mmol/L Normal 22.0-30.0 [facility] ([place] Comment on above: Performed By: #### K #### [address] [address] HCO3 (Bld) [Moles/Vol] 26.0 mmol/L Normal 21.0-29.0 A [facility] ([place] Comment on above: Performed By: #### K #### [address] [address] Oxygen (Bld) [Partial pressure] 74.2 mm[Hg] Normal 74.0-108.0 [facility] ([place] Comment on above: Performed By: #### K #### [address] [address] Oxygen saturation in Blood 95.6 % Normal 92.0-96.0 [facility] ([place] Comment on above: Performed By: #### K #### [address] [address] pCO2 42.2 mmHg Normal 32.0-46.0 [facility] ([place] Comment on above: Performed By: #### K #### [address] [address] pH (Bld) 7.407 [pH] Normal 7.380-7.460 [facility] ([place] Comment on above: Performed By: #### K #### [address] [address] Barometric Pressure 706 mmHg Normal [facility] ([place] Comment on above: Performed By: #### H CTRP, HGBRP, GLURP, CLRP, NARP, BGRP, KRP, CARP #### [address] [address] Base excess Calc (Bld) [Moles/Vol] -2.2000 mmol/L Normal [facility] ([place] Comment on above: Performed By: #### H CTRP, HGBRP, GLURP, CLRP, NARP, BGRP, KRP, CARP #### [address] [address] CO2 [Moles/Vol] 26.0 mmol/L Normal 22.0-30.0 [facility] ([place] Comment on above: Performed By: #### H CTRP, HGBRP, GLURP, CLRP, NARP, BGRP, KRP, CARP #### [place] [phone] HCO3 (Bld) [Moles/Vol] 24.4 mmol/L Normal 21.0-29.0 A [facility] ([place] Comment on above: Performed By: #### H CTRP, HGBRP, GLURP, CLRP, NARP, BGRP, KRP, CARP #### [place] [phone] Oxygen (Bld) [Partial pressure] 86.6 mm[Hg] Normal 74.0-108.0 [facility] ([place] Comment on above: Performed By: #### H CTRP, HGBRP, GLURP, CLRP, NARP, BGRP, KRP, CARP #### [place] [phone] Oxygen saturation in Blood 96.2 % High 92.0-96.0 [facility] ([place] Comment on above: Performed By: #### H CTRP, HGBRP, GLURP, CLRP, NARP, BGRP, KRP, CARP #### [address] [address] pCO2 50.9 mmHg High 32.0-46.0 [facility] ([place] Comment on above: Performed By: #### H CTRP, HGBRP, GLURP, CLRP, NARP, BGRP, KRP, CARP #### [address] [address] pH (Bld) 7.299 [pH] Low 7.380-7.460 [facility] ([place] Comment on above: Performed By: #### H CTRP, HGBRP, GLURP, CLRP, NARP, BGRP, KRP, CARP #### [address] [address] Barometric Pressure 709 mmHg Normal [facility] ([place] Comment on above: Performed By: #### H CTRP, HGBRP, GLURP, CLRP, NARP, BGRP, KRP, CARP #### [address] [address] Base excess Calc (Bld) [Moles/Vol] -0.8000 mmol/L Normal [facility] ([place] Comment on above: Performed By: #### H CTRP, HGBRP, GLURP, CLRP, NARP, BGRP, KRP, CARP #### [address] [address] CO2 [Moles/Vol] 27.3 mmol/L Normal 22.0-30.0 [facility] ([place] Comment on above: Performed By: #### H CTRP, HGBRP, GLURP, CLRP, NARP, BGRP, KRP, CARP #### [place] [phone] HCO3 (Bld) [Moles/Vol] 25.7 mmol/L Normal 21.0-29.0 A [facility] ([place] Comment on above: Performed By: #### H CTRP, HGBRP, GLURP, CLRP, NARP, BGRP, KRP, CARP #### [address] [address] Oxygen (Bld) [Partial pressure] 130.7 mm[Hg] High 74.0-108.0 [facility] ([place] Comment on above: Performed By: #### H CTRP, HGBRP, GLURP, CLRP, NARP, BGRP, KRP, CARP #### [place] [phone] Oxygen saturation in Blood 98.7 % High 92.0-96.0 [facility] ([place] Comment on above: Performed By: #### H CTRP, HGBRP, GLURP, CLRP, NARP, BGRP, KRP, CARP #### [address] [address] pCO2 50.9 mmHg High 32.0-46.0 [facility] ([place] Comment on above: Performed By: #### H CTRP, HGBRP, GLURP, CLRP, NARP, BGRP, KRP, CARP #### [address] [address] pH (Bld) 7.321 [pH] Low 7.380-7.460 [facility] ([place] Comment on above: Performed By: #### H CTRP, HGBRP, GLURP, CLRP, NARP, BGRP, KRP, CARP #### [address] [address] Barometric Pressure 735 mmHg Normal [facility] ([place] Comment on above: Performed By: #### H CTRP, HGBRP, GLURP, CLRP, NARP, BGRP, KRP, CARP #### [address] [address] Base excess Calc (Bld) [Moles/Vol] -2.0000 mmol/L Normal [facility] ([place] Comment on above: Performed By: #### H CTRP, HGBRP, GLURP, CLRP, NARP, BGRP, KRP, CARP #### [address] [address] CO2 [Moles/Vol] 27.5 mmol/L Normal 22.0-30.0 [facility] ([place] Comment on above: Performed By: #### H CTRP, HGBRP, GLURP, CLRP, NARP, BGRP, KRP, CARP #### [address] [address] HCO3 (Bld) [Moles/Vol] 25.7 mmol/L Normal 21.0-29.0 [facility] ([place]) Comment on above: Performed By: #### H CTRP, HGBRP, GLURP, CLRP, NARP, BGRP, KRP, CARP #### [address] [address] Oxygen (Bld) [Partial pressure] 101.8 mm[Hg] Normal 74.0-108.0 [facility] ([place] Comment on above: Performed By: #### H CTRP, HGBRP, GLURP, CLRP, NARP, BGRP, KRP, CARP #### [place] [phone] Oxygen saturation in Blood 96.9 % High 92.0-96.0 [facility] ([place] Comment on above: Performed By: #### H CTRP, HGBRP, GLURP, CLRP, NARP, BGRP, KRP, CARP #### [address] [address] pCO2 55.8 mmHg High 32.0-46.0 [facility] ([place] Comment on above: Performed By: #### H CTRP, HGBRP, GLURP, CLRP, NARP, BGRP, KRP, CARP #### [address] [address] pH (Bld) 7.282 [pH] Low 7.380-7.460 [facility] ([place] Comment on above: Performed By: #### H CTRP, HGBRP, GLURP, CLRP, NARP, BGRP, KRP, CARP #### [place] [phone] Barometric Pressure 705 mmHg Normal [facility] ([place] Comment on above: Performed By: #### H CTRP, HGBRP, GLURP, CLRP, NARP, BGRP, KRP, CARP #### [address] [address] Base excess Calc (Bld) [Moles/Vol] -1.8000 mmol/L Normal [facility] ([place] Comment on above: Performed By: #### H CTRP, HGBRP, GLURP, CLRP, NARP, BGRP, KRP, CARP #### [address] [address] CO2 [Moles/Vol] 27.9 mmol/L Normal 22.0-30.0 [facility] ([place] Comment on above: Performed By: #### H CTRP, HGBRP, GLURP, CLRP, NARP, BGRP, KRP, CARP #### [address] [address] HCO3 (Bld) [Moles/Vol] 26.1 mmol/L Normal 21.0-29.0 [facility] ([place] Comment on above: Performed By: #### H CTRP, HGBRP, GLURP, CLRP, NARP, BGRP, KRP, CARP #### [address] [address] Oxygen (Bld) [Partial pressure] 113.5 mm[Hg] High 74.0-108.0 [facility] ([place] Comment on above: Performed By: #### H CTRP, HGBRP, GLURP, CLRP, NARP, BGRP, KRP, CARP #### [address] [address] Oxygen saturation in Blood 97.9 % High 92.0-96.0 [facility] ([place] Comment on above: Performed By: #### H CTRP, HGBRP, GLURP, CLRP, NARP, BGRP, KRP, CARP #### [address] [address] pCO2 60.4 mmHg High 32.0-46.0 [facility] ([place] Comment on above: Performed By: #### H CTRP, HGBRP, GLURP, CLRP, NARP, BGRP, KRP, CARP #### [address] [address] pH (Bld) 7.253 [pH] Low 7.380-7.460 [facility] ([place] Comment on above: Performed By: #### H CTRP, HGBRP, GLURP, CLRP, NARP, BGRP, KRP, CARP #### [place] [address] CBCon 11-24-2021 Erythrocyte distribution width (RBC) [Ratio] 14.1 % Normal 11.5-15.5 [facility] ([place] Comment on above: Performed By: #### H CTRP, HGBRP, GLURP, CLRP, NARP, BGRP, KRP, CARP #### [place] [address] Hematocrit (Bld) [Volume fraction] 29.2 % Low 34.0-46.0 [facility] ([place] Comment on above: Performed By: #### H CTRP, HGBRP, GLURP, CLRP, NARP, BGRP, KRP, CARP #### [place] [address] Hgb 9.6 G/dL Low 12.0-16.0 [facility] ([place] Comment on above: Performed By: #### H CTRP, HGBRP, GLURP, CLRP, NARP, BGRP, KRP, CARP #### [place] [address] MCH (RBC) [Entitic mass] 29.6 pg Normal 27.0-33.0 [facility] ([place] Comment on above: Performed By: #### H CTRP, HGBRP, GLURP, CLRP, NARP, BGRP, KRP, CARP #### [place] [address] MCHC 32.7 G/dL Normal 32.0-36.0 [facility] ([place] Comment on above: Performed By: #### H CTRP, HGBRP, GLURP, CLRP, NARP, BGRP, KRP, CARP #### [place] [id number] MCV (RBC) [Entitic vol] 90.4 fL Normal 80.0-99.0 A [facility] ([place] Comment on above: Performed By: #### H CTRP, HGBRP, GLURP, CLRP, NARP, BGRP, KRP, CARP #### [place] [phone] Platelet 186 10 3/mcL Normal 150-450 [facility] ([place] Comment on above: Performed By: #### H CTRP, HGBRP, GLURP, CLRP, NARP, BGRP, KRP, CARP #### [address] [address] Platelet mean volume (Bld) [Entitic vol] 8.5 fL Normal 6.6-10.5 [facility] ([place] Comment on above: Performed By: #### H CTRP, HGBRP, GLURP, CLRP, NARP, BGRP, KRP, CARP #### [place] [phone] RBC 3.23 10 6/mcL Low 4.10-5.30 [facility] ([place] Comment on above: Performed By: #### H CTRP, HGBRP, GLURP, CLRP, NARP, BGRP, KRP, CARP #### [address] [address] WBC 14.8 10 3/mcL High 4.5-10.8 [facility] ([place] Comment on above: Performed By: #### H CTRP, HGBRP, GLURP, CLRP, NARP, BGRP, KRP, CARP #### [address] [address] CMPon 11-24-2021 Albumin Level 3.7 G/dL Normal 3.2-4.8 [facility] ([place] Comment on above: Performed By: #### H CTRP, HGBRP, GLURP, CLRP, NARP, BGRP, KRP, CARP #### [place] [address] Albumin/Globulin [Mass ratio] 1.9 {ratio} High 0.9-1.6 [facility] ([place] Comment on above: Performed By: #### H CTRP, HGBRP, GLURP, CLRP, NARP, BGRP, KRP, CARP #### [place] [address] ALP [Catalytic activity/Vol] 41 U/L Normal 38-126 [facility] ([place] Comment on above: Performed By: #### H CTRP, HGBRP, GLURP, CLRP, NARP, BGRP, KRP, CARP #### [address] [address] ALT [Catalytic activity/Vol] 33 U/L Normal 10-49 [facility] ([place] Comment on above: Performed By: #### H CTRP, HGBRP, GLURP, CLRP, NARP, BGRP, KRP, CARP #### [address] [address] AST [Catalytic activity/Vol] 49 U/L High 8-34 [facility] ([place] Comment on above: Performed By: #### H CTRP, HGBRP, GLURP, CLRP, NARP, BGRP, KRP, CARP #### [address] [address] Bili Total 0.80 mg/dL Normal 0.20-1.20 [facility] ([place]) Comment on above: Result Comment: Use of this assay is not recommended for patients undergoing treatment with eltrombopag due to the potential for falsely elevated results. Performed By: #### H CTRP, HGBRP, GLURP, CLRP, NARP, BGRP, KRP, CARP #### [address] [address] BUN/Creatinine Ratio 22.4 ratio High 10.0-22.0 [facility] ([place] Comment on above: Performed By: #### H CTRP, HGBRP, GLURP, CLRP, NARP, BGRP, KRP, CARP #### [address] [address] Calcium [Mass/Vol] 7.5 mg/dL Low 8.7-10.4 [facility] ([place]) Comment on above: Performed By: #### H CTRP, HGBRP, GLURP, CLRP, NARP, BGRP, KRP, CARP #### [address] [address] Chloride [Moles/Vol] 106 mmol/L Normal 98-110 [facility] ([place] Comment on above: Performed By: #### H CTRP, HGBRP, GLURP, CLRP, NARP, BGRP, KRP, CARP #### [address] [address] CO2 [Moles/Vol] 26 mmol/L Normal 22-32 [facility] ([place] Comment on above: Performed By: #### H CTRP, HGBRP, GLURP, CLRP, NARP, BGRP, KRP, CARP #### [address] [address] Creatinine [Mass/Vol] 0.67 mg/dL Normal 0.50-1.20 [facility] ([place]) Comment on above: Performed By: #### H CTRP, HGBRP, GLURP, CLRP, NARP, BGRP, KRP, CARP #### [address] [address] Electrolyte Balance 5.0 mEq/L Normal 4.0-15.0 [facility] ([place]) Comment on above: Performed By: #### H CTRP, HGBRP, GLURP, CLRP, NARP, BGRP, KRP, CARP #### [address] [address] Globulin 1.9 G/dL Normal 1.5-3.8 [facility] ([place]) Comment on above: Performed By: #### H CTRP, HGBRP, GLURP, CLRP, NARP, BGRP, KRP, CARP #### [address] [address] Glucose [Mass/Vol] 141 mg/dL High 82-115 [facility] ([place] Comment on above: Performed By: #### H CTRP, HGBRP, GLURP, CLRP, NARP, BGRP, KRP, CARP #### [address] [address] Potassium [Moles/Vol] 4.2 mmol/L Normal 3.5-5.0 [facility] ([place] Comment on above: Performed By: #### H CTRP, HGBRP, GLURP, CLRP, NARP, BGRP, KRP, CARP #### [place] [address] Sodium [Moles/Vol] 137 mmol/L Normal 136-145 [facility] ([place] Comment on above: Performed By: #### H CTRP, HGBRP, GLURP, CLRP, NARP, BGRP, KRP, CARP #### [place] [address] Total Protein 5.6 G/dL Low 5.7-8.2 [facility] ([place] Comment on above: Result Comment: No te - New Reference Range in effect 19 Performed By: #### H CTRP, HGBRP, GLURP, CLRP, NARP, BGRP, KRP, CARP #### [place] [address] Urea nitrogen [Mass/Vol] 15.0 mg/dL Normal 8.0-22.0 [facility] ([place] Comment on above: Performed By: #### H CTRP, HGBRP, GLURP, CLRP, NARP, BGRP, KRP, CARP #### [place] [address] [place]den 11-24-2021 Potassium [Moles/Vol] 4.0 mmol/L Normal 3.5-5.0 [facility] ([place] Comment on above: Performed By: #### H CTRP, HGBRP, GLURP, CLRP, NARP, BGRP, KRP, CARP #### [place] [address] Potassium [Moles/Vol] 4.7 mmol/L Normal 3.5-5.0 [facility] ([place] Comment on above: Performed By: #### H CTRP, HGBRP, GLURP, CLRP, NARP, BGRP, KRP, CARP #### [place] [address] LABORATORYOrdered By: Oswaldo Vásquez on 11-24-2021 Blood Glucose Interventions Administered agent to decrease blood sugar (11/24/21 11:28 AM) [facility] Work Phone: Blood Glucose Interventions Administered agent to decrease blood sugar (11/24/21 9:39 AM) [facility] Work Phone: Blood Glucose Interventions Administered agent to decrease blood sugar (11/24/21 7:27 AM) [facility] Work Phone: LABORATORYOrdered By: SYSTEM SYSTEM on 11-24-2021 Albumin BCP dye [Mass/Vol] 3.7 G/dL Invalid Interpretation Code 3.2 - 4.8 G/dL ADM SS Albumin/Globulin [Mass ratio] 1.9 {ratio} Invalid Interpretation Code 0.9 - 1.6 ratio ADM SS ALP [Catalytic activity/Vol] 41 U/L Invalid Interpretation Code 38 - 126 U/L ADM SS ALT No additional P-5'-P [Catalytic activity/Vol] 33 U/L Invalid Interpretation Code 10 - 49 U/L ADM SS AST [Catalytic activity/Vol] 49 U/L Invalid Interpretation Code 8 - 34 U/L ADM SS Bilirubin [Mass/Vol] 0.80 mg/dL Invalid Interpretation Code 0.20 - 1.20 mg/dL AH ADM SS Globulin 1.9 G/dL Invalid Interpretation Code 1.5 - 3.8 G/dL ADM SS Protein [Mass/Vol] 5.6 G/dL Invalid Interpretation Code 5.7 - 8.2 G/dL AH ADM SS .Auto Diffon 11-23-2021 Basophil, Absolute 0.1 10 3/mcL Normal 0.0-0.3 [facility] ([place] Comment on above: Performed By: #### H CTRP, HGBRP, GLURP, CLRP, NARP, BGRP, KRP, CARP #### [address] [address] Basophils/100 WBC (Bld) 0.3 % Normal 0.0-2.5 A [facility] ([place] Comment on above: Performed By: #### H CTRP, HGBRP, GLURP, CLRP, NARP, BGRP, KRP, CARP #### [address] [address] Eosinophil, Absolute 0.3 10 3/mcL Normal 0.0-0.7 [facility] ([place]) Comment on above: Performed By: #### H CTRP, HGBRP, GLURP, CLRP, NARP, BGRP, KRP, CARP #### [address] [address] Eosinophils/100 WBC (Bld) 1.3 % Normal 0.0-6.0 [facility] ([place] Comment on above: Performed By: #### H CTRP, HGBRP, GLURP, CLRP, NARP, BGRP, KRP, CARP #### [address] [address] Lymphocyte, Absolute 2.6 10 3/mcL Normal 0.9-4.3 [facility] ([place] Comment on above: Performed By: #### H CTRP, HGBRP, GLURP, CLRP, NARP, BGRP, KRP, CARP #### [address] [address] Lymphocytes/100 WBC (Bld) 11.4 % Low 20.0-40.0 [facility] ([place] Comment on above: Performed By: #### H CTRP, HGBRP, GLURP, CLRP, NARP, BGRP, KRP, CARP #### [address] [address] Monocyte, Absolute 0.7 10 3/mcL Normal 0.1-1.4 [facility] ([place] Comment on above: Performed By: #### H CTRP, HGBRP, GLURP, CLRP, NARP, BGRP, KRP, CARP #### [address] [address] Monocytes/100 WBC (Bld) 3.1 % Normal 2.0-13.0 [facility] ([place] Comment on above: Performed By: #### H CTRP, HGBRP, GLURP, CLRP, NARP, BGRP, KRP, CARP #### [address] [address] Neutrophils/100 WBC (Bld) 83.9 % High 50.0-75.0 [facility] ([place] Comment on above: Performed By: #### H CTRP, HGBRP, GLURP, CLRP, NARP, BGRP, KRP, CARP #### [address] [address] .GFRon 11-23-2021 GFR Non- >60 Normal [facility] ([place] Comment on above: Result Comment: GFR Population [...] GLURP, CLRP, NARP, BGRP, KRP, CARP #### [address] [address] GFR >60 Normal [facility] ([place] Comment on above: Result Comment: GFR Population [...] GLURP, CLRP, NARP, BGRP, KRP, CARP #### [address] [address] .NEUABSon 11-23-2021 Neutrophil, Absolute 18.9 10 3/mcL High 2.3-8.1 A [facility] ([place] Comment on above: Performed By: #### H CTRP, HGBRP, GLURP, CLRP, NARP, BGRP, KRP, CARP #### [place] [id number] ABO/Rh (Gel)on 11-23-2021 ABO/Rh Interp Positive Invalid Interpretation Code [facility] ([place] Comment on above: Performed By: #### H CTRP, HGBRP, GLURP, CLRP, NARP, BGRP, KRP, CARP #### [place] [phone] ABS (Gel)on 11-23-2021 ABSC Interp (Gel) Negative Normal [facility] ([place] Comment on above: Performed By: #### H CTRP, HGBRP, GLURP, CLRP, NARP, BGRP, KRP, CARP #### [place] [phone] APTTon 11-23-2021 aPTT Coag (Bld) [Time] 32.5 s Normal 25.0-35.0 [facility] ([place] Comment on above: Result Comment: For Heparin anticoagulation therapy, the recommended therapeutic range is: 54-77 seconds (APTT Correlation with Anti-Xa therapeutic range of 0.3-0.7 units/ml). PLEASE REFERENCE THE PHARMACY PROTOCOL FOR DOSING. Performed By: #### H CTRP, HGBRP, GLURP, CLRP, NARP, BGRP, KRP, CARP #### [place] [phone] Heparin dose (APTT) None Normal [facility] ([place] Comment on above: Performed By: #### H CTRP, HGBRP, GLURP, CLRP, NARP, BGRP, KRP, CARP #### [place] [phone] aPTT Coag (Bld) [Time] 25.6 s Normal 25.0-35.0 [facility] ([place] Comment on above: Result Comment: For Heparin anticoagulation therapy, the recommended therapeutic range is: 54-77 seconds (APTT Correlation with Anti-Xa therapeutic range of 0.3-0.7 units/ml). PLEASE REFERENCE THE PHARMACY PROTOCOL FOR DOSING. Performed By: #### H CTRP, HGBRP, GLURP, CLRP, NARP, BGRP, KRP, CARP #### [place] [phone] Heparin dose (APTT) Unknown Normal [facility] ([place] Comment on above: Performed By: #### H CTRP, HGBRP, GLURP, CLRP, NARP, BGRP, KRP, CARP #### [place] [phone] BGon 11-23-2021 Barometric Pressure 735 mmHg Normal [facility] ([place] Comment on above: Performed By: #### K #### [place] [id number] Base excess Calc (Bld) [Moles/Vol] -1.8000 mmol/L Normal [facility] ([place]) Comment on above: Performed By: #### K #### [place] [id number] CO2 [Moles/Vol] 28.0 mmol/L Normal 22.0-30.0 [facility] ([place]) Comment on above: Performed By: #### K #### [place] [id number] HCO3 (Bld) [Moles/Vol] 26.2 mmol/L Normal 21.0-29.0 A [facility] ([place]) Comment on above: Performed By: #### K #### [place] [id number] Oxygen (Bld) [Partial pressure] 108.5 mm[Hg] High 74.0-108.0 [facility] ([place]) Comment on above: Performed By: #### K #### [place] [id number] Oxygen saturation in Blood 97.3 % High 92.0-96.0 [facility] ([place] Comment on above: Performed By: #### K #### [address] [address] pCO2 57.8 mmHg High 32.0-46.0 [facility] ([place] Comment on above: Performed By: #### K #### [address] [address] pH (Bld) 7.274 [pH] Low 7.380-7.460 [facility] ([place] Comment on above: Performed By: #### K #### [place] [id number] Barometric Pressure 708 mmHg Normal [facility] ([place] Comment on above: Performed By: #### H CTRP, HGBRP, GLURP, CLRP, NARP, BGRP, KRP, CARP #### [place] [id number] Base excess Calc (Bld) [Moles/Vol] -2.2000 mmol/L Normal [facility] ([place] Comment on above: Performed By: #### H CTRP, HGBRP, GLURP, CLRP, NARP, BGRP, KRP, CARP #### [address] [address] CO2 [Moles/Vol] 27.8 mmol/L Normal 22.0-30.0 [facility] ([place] Comment on above: Performed By: #### H CTRP, HGBRP, GLURP, CLRP, NARP, BGRP, KRP, CARP #### [address] [address] HCO3 (Bld) [Moles/Vol] 25.9 mmol/L Normal 21.0-29.0 A [facility] ([place] Comment on above: Performed By: #### H CTRP, HGBRP, GLURP, CLRP, NARP, BGRP, KRP, CARP #### [place] [id number] Oxygen (Bld) [Partial pressure] 97.0 mm[Hg] Normal 74.0-108.0 [facility] ([place] Comment on above: Performed By: #### H CTRP, HGBRP, GLURP, CLRP, NARP, BGRP, KRP, CARP #### [address] [address] Oxygen saturation in Blood 96.1 % High 92.0-96.0 [facility] ([place] Comment on above: Performed By: #### H CTRP, HGBRP, GLURP, CLRP, NARP, BGRP, KRP, CARP #### [address] [address] pCO2 61.5 mmHg High 32.0-46.0 [facility] ([place] Comment on above: Performed By: #### H CTRP, HGBRP, GLURP, CLRP, NARP, BGRP, KRP, CARP #### [address] [address] pH (Bld) 7.242 [pH] Low 7.380-7.460 [facility] ([place] Comment on above: Performed By: #### H CTRP, HGBRP, GLURP, CLRP, NARP, BGRP, KRP, CARP #### [address] [address] Barometric Pressure 708 mmHg Normal [facility] ([place] Comment on above: Order Comment: CPAP Performed By: #### H CTRP, HGBRP, GLURP, CLRP, NARP, BGRP, KRP, CARP #### [address] [address] Base excess Calc (Bld) [Moles/Vol] -1.1000 mmol/L Normal [facility] ([place]) Comment on above: Order Comment: CPAP Performed By: #### H CTRP, HGBRP, GLURP, CLRP, NARP, BGRP, KRP, CARP #### [address] [address] CO2 [Moles/Vol] 26.0 mmol/L Normal 22.0-30.0 [facility] ([place]) Comment on above: Order Comment: CPAP Performed By: #### H CTRP, HGBRP, GLURP, CLRP, NARP, BGRP, KRP, CARP #### [address] [address] HCO3 (Bld) [Moles/Vol] 24.6 mmol/L Normal 21.0-29.0 [facility] ([place]) Comment on above: Order Comment: CPAP Performed By: #### H CTRP, HGBRP, GLURP, CLRP, NARP, BGRP, KRP, CARP #### [address] [address] Oxygen (Bld) [Partial pressure] 127.1 mm[Hg] High 74.0-108.0 [facility] ([place]) Comment on above: Order Comment: CPAP Performed By: #### H CTRP, HGBRP, GLURP, CLRP, NARP, BGRP, KRP, CARP #### [address] [address] Oxygen saturation in Blood 98.4 % High 92.0-96.0 [facility] ([place]) Comment on above: Order Comment: CPAP Performed By: #### H CTRP, HGBRP, GLURP, CLRP, NARP, BGRP, KRP, CARP #### [address] [address] pCO2 45.6 mmHg Normal 32.0-46.0 [facility] ([place]) Comment on above: Order Comment: CPAP Performed By: #### H CTRP, HGBRP, GLURP, CLRP, NARP, BGRP, KRP, CARP #### [address] [address] pH (Bld) 7.350 [pH] Low 7.380-7.460 [facility] ([place]) Comment on above: Order Comment: CPAP Performed By: #### H CTRP, HGBRP, GLURP, CLRP, NARP, BGRP, KRP, CARP #### [address] [address] Barometric Pressure 709 mmHg Normal [facility] ([place]) Comment on above: Performed By: #### H CTRP, HGBRP, GLURP, CLRP, NARP, BGRP, KRP, CARP #### [address] [address] Base excess Calc (Bld) [Moles/Vol] -1.4000 mmol/L Normal [facility] ([place] Comment on above: Performed By: #### H CTRP, HGBRP, GLURP, CLRP, NARP, BGRP, KRP, CARP #### [place] [id number] HCO3 (Bld) [Moles/Vol] 24.3 mmol/L Normal 21.0-29.0 [facility] ([place] Comment on above: Performed By: #### H CTRP, HGBRP, GLURP, CLRP, NARP, BGRP, KRP, CARP #### [place] [id number] Oxygen (Bld) [Partial pressure] 118.0 mm[Hg] High 74.0-108.0 [facility] ([place] Comment on above: Performed By: #### H CTRP, HGBRP, GLURP, CLRP, NARP, BGRP, KRP, CARP #### [address] [address] Oxygen saturation in Blood 98.2 % High 92.0-96.0 [facility] ([place] Comment on above: Performed By: #### H CTRP, HGBRP, GLURP, CLRP, NARP, BGRP, KRP, CARP #### [address] [address] pCO2 44.8 mmHg Normal 32.0-46.0 [facility] ([place]) Comment on above: Performed By: #### H CTRP, HGBRP, GLURP, CLRP, NARP, BGRP, KRP, CARP #### [address] [address] pH (Bld) 7.352 [pH] Low 7.380-7.460 [facility] ([place]) Comment on above: Performed By: #### H CTRP, HGBRP, GLURP, CLRP, NARP, BGRP, KRP, CARP #### [address] [address] Barometric Pressure 706 mmHg Normal [facility] ([place]) Comment on above: Performed By: #### B G #### [address] [address] Base excess Calc (Bld) [Moles/Vol] -2.3000 mmol/L Normal [facility] ([place] Comment on above: Performed By: #### B G #### [address] [address] CO2 [Moles/Vol] 24.6 mmol/L Normal 22.0-30.0 [facility] ([place] Comment on above: Performed By: #### B G #### [address] [address] HCO3 (Bld) [Moles/Vol] 23.3 mmol/L Normal 21.0-29.0 A [facility] ([place]) Comment on above: Performed By: #### B G #### [address] [address] Oxygen (Bld) [Partial pressure] 98.4 mm[Hg] Normal 74.0-108.0 [facility] ([place]) Comment on above: Performed By: #### B G #### [address] [address] Oxygen saturation in Blood 97.4 % High 92.0-96.0 [facility] ([place] Comment on above: Performed By: #### B G #### [address] [address] pCO2 43.4 mmHg Normal 32.0-46.0 [facility] ([place] Comment on above: Performed By: #### B G #### [address] [address] pH (Bld) 7.348 [pH] Low 7.380-7.460 [facility] ([place] Comment on above: Performed By: #### B G #### [address] [address] BGOrdered By: SYSTEM SYSTEM on 11-23-2021 CO2 [Moles/Vol] 25.7 mmol/L Normal 22.0-30.0 [facility] SS Comment on above: Performed By: #### H CTRP, HGBRP, GLURP, CLRP, NARP, BGRP, KRP, CARP #### [place] [address] Performed By: #### K #### [place] [address] BGRPon 11-23-2021 Base Excess - POC -2.6 mmol/L Normal [facility] ([place] Comment on above: Performed By: #### H CTRP, HGBRP, GLURP, CLRP, NARP, BGRP, KRP, CARP #### [place] [address] CO2 [Moles/Vol] 23.5 mmol/L Normal 22.0-30.0 [facility] ([place] Comment on above: Performed By: #### H CTRP, HGBRP, GLURP, CLRP, NARP, BGRP, KRP, CARP #### [place] [address] HCO3 (Bld) [Moles/Vol] 22.3 mmol/L Normal 21.0-29.0 [facility] ([place] Comment on above: Performed By: #### H CTRP, HGBRP, GLURP, CLRP, NARP, BGRP, KRP, CARP #### [place] [address] Oxygen saturation in Blood 97.8 % High 92.0-96.0 [facility] ([place] Comment on above: Performed By: #### H CTRP, HGBRP, GLURP, CLRP, NARP, BGRP, KRP, CARP #### [place] [address] PCO2 - POC 38.7 mmHg Normal 32.0-46.0 [facility] ([place] Comment on above: Performed By: #### H CTRP, HGBRP, GLURP, CLRP, NARP, BGRP, KRP, CARP #### [place] [id number] pH (poct) - POC 7.378 Low 7.380-7.460 [facility] ([place] Comment on above: Performed By: #### H CTRP, HGBRP, GLURP, CLRP, NARP, BGRP, KRP, CARP #### [place] [address] PO2 - POC 123.0 mmHg High 74.0-108.0 [facility] ([place] Comment on above: Performed By: #### H CTRP, HGBRP, GLURP, CLRP, NARP, BGRP, KRP, CARP #### [place] [address] Base Excess - POC -3.2 mmol/L Normal [facility] ([place] Comment on above: Performed By: #### H CTRP, HGBRP, GLURP, CLRP, NARP, BGRP, KRP, CARP #### [place] [address] CO2 [Moles/Vol] 22.8 mmol/L Normal 22.0-30.0 [facility] ([place] Comment on above: Performed By: #### H CTRP, HGBRP, GLURP, CLRP, NARP, BGRP, KRP, CARP #### [place] [address] HCO3 (Bld) [Moles/Vol] 21.7 mmol/L Normal 21.0-29.0 [facility] ([place] Comment on above: Performed By: #### H CTRP, HGBRP, GLURP, CLRP, NARP, BGRP, KRP, CARP #### [place] [address] Oxygen saturation in Blood 99.2 % High 92.0-96.0 [facility] ([place] Comment on above: Performed By: #### H CTRP, HGBRP, GLURP, CLRP, NARP, BGRP, KRP, CARP #### [place] [id number] PCO2 - POC 37.9 mmHg Normal 32.0-46.0 [facility] ([place] Comment on above: Performed By: #### H CTRP, HGBRP, GLURP, CLRP, NARP, BGRP, KRP, CARP #### [place] [id number] pH (poct) - POC 7.375 Low 7.380-7.460 [facility] ([place] Comment on above: Performed By: #### H CTRP, HGBRP, GLURP, CLRP, NARP, BGRP, KRP, CARP #### [place] [address] PO2 - POC 428.4 mmHg High 74.0-108.0 [facility] ([place] Comment on above: Performed By: #### H CTRP, HGBRP, GLURP, CLRP, NARP, BGRP, KRP, CARP #### [place] [address] Base Excess - POC -0.5 mmol/L Normal [facility] ([place] Comment on above: Performed By: #### K #### [place] [address] Oxygen saturation in Blood 99.0 % High 92.0-96.0 [facility] ([place]) Comment on above: Performed By: #### K #### [place] [address] PCO2 - POC 41.5 mmHg Normal 32.0-46.0 [facility] ([place] Comment on above: Performed By: #### K #### [place] [address] pH (poct) - POC 7.388 Normal 7.380-7.460 [facility] ([place]) Comment on above: Performed By: #### K #### [place] [address] PO2 - POC 450.3 mmHg High 74.0-108.0 [facility] ([place]) Comment on above: Performed By: #### K #### [place] [address] Base Excess - POC -1.4 mmol/L Normal [facility] ([place] Comment on above: Performed By: #### H CTRP, HGBRP, GLURP, CLRP, NARP, BGRP, KRP, CARP #### [place] [id number] CO2 [Moles/Vol] 24.0 mmol/L Normal 22.0-30.0 [facility] ([place] Comment on above: Performed By: #### H CTRP, HGBRP, GLURP, CLRP, NARP, BGRP, KRP, CARP #### [place] [address] HCO3 (Bld) [Moles/Vol] 22.8 mmol/L Normal 21.0-29.0 A [facility] ([place] Comment on above: Performed By: #### H CTRP, HGBRP, GLURP, CLRP, NARP, BGRP, KRP, CARP #### [place] [address] Oxygen saturation in Blood 99.4 % High 92.0-96.0 [facility] ([place] Comment on above: Performed By: #### H CTRP, HGBRP, GLURP, CLRP, NARP, BGRP, KRP, CARP #### [place] [address] PCO2 - POC 36.7 mmHg Normal 32.0-46.0 [facility] ([place] Comment on above: Performed By: #### H CTRP, HGBRP, GLURP, CLRP, NARP, BGRP, KRP, CARP #### [place] [address] pH (poct) - POC 7.412 Normal 7.380-7.460 [facility] ([place] Comment on above: Performed By: #### H CTRP, HGBRP, GLURP, CLRP, NARP, BGRP, KRP, CARP #### [place] [address] PO2 - POC 386.4 mmHg High 74.0-108.0 [facility] ([place]) Comment on above: Performed By: #### H CTRP, HGBRP, GLURP, CLRP, NARP, BGRP, KRP, CARP #### [place] [id number] Base Excess - POC -0.6 mmol/L Normal [facility] ([place] Comment on above: Performed By: #### H CTRP, HGBRP, GLURP, CLRP, NARP, BGRP, KRP, CARP #### [place] [id number] CO2 [Moles/Vol] 25.9 mmol/L Normal 22.0-30.0 [facility] ([place] Comment on above: Performed By: #### H CTRP, HGBRP, GLURP, CLRP, NARP, BGRP, KRP, CARP #### [place] [id number] HCO3 (Bld) [Moles/Vol] 24.6 mmol/L Normal 21.0-29.0 A [facility] ([place]) Comment on above: Performed By: #### H CTRP, HGBRP, GLURP, CLRP, NARP, BGRP, KRP, CARP #### [place] [address] Oxygen saturation in Blood 99.4 % High 92.0-96.0 [facility] ([place]) Comment on above: Performed By: #### H CTRP, HGBRP, GLURP, CLRP, NARP, BGRP, KRP, CARP #### [place] [id number] PCO2 - POC 42.3 mmHg Normal 32.0-46.0 [facility] ([place] Comment on above: Performed By: #### H CTRP, HGBRP, GLURP, CLRP, NARP, BGRP, KRP, CARP #### [address] [address] pH (poct) - POC 7.382 Normal 7.380-7.460 [facility] ([place]) Comment on above: Performed By: #### H CTRP, HGBRP, GLURP, CLRP, NARP, BGRP, KRP, CARP #### [address] [address] PO2 - POC 338.4 mmHg High 74.0-108.0 [facility] ([place]) Comment on above: Performed By: #### H CTRP, HGBRP, GLURP, CLRP, NARP, BGRP, KRP, CARP #### [address] [address] BGRPOrdered By: SYSTEM SYSTE Split on 11-23-2021 HCO3 (Bld) [Moles/Vol] 24.4 mmol/L Normal 21.0-29.0 A H Rapid [facility] SS Comment on above: Performed By: #### K #### [place] [address] BMPon 11-23-2021 BUN/Creatinine Ratio 18.9 ratio Normal 10.0-22.0 [facility] ([place] Comment on above: Performed By: #### H CTRP, HGBRP, GLURP, CLRP, NARP, BGRP, KRP, CARP #### [address] [address] Calcium [Mass/Vol] 8.1 mg/dL Low 8.7-10.4 [facility] ([place] Comment on above: Performed By: #### H CTRP, HGBRP, GLURP, CLRP, NARP, BGRP, KRP, CARP #### [address] [address] Chloride [Moles/Vol] 108 mmol/L Normal 98-110 [facility] ([place] Comment on above: Performed By: #### H CTRP, HGBRP, GLURP, CLRP, NARP, BGRP, KRP, CARP #### [address] [address] CO2 [Moles/Vol] 24 mmol/L Normal 22-32 [facility] ([place] Comment on above: Performed By: #### H CTRP, HGBRP, GLURP, CLRP, NARP, BGRP, KRP, CARP #### [address] [address] Creatinine [Mass/Vol] 0.74 mg/dL Normal 0.50-1.20 [facility] ([place]) Comment on above: Performed By: #### H CTRP, HGBRP, GLURP, CLRP, NARP, BGRP, KRP, CARP #### [address] [address] Electrolyte Balance 9.0 mEq/L Normal 4.0-15.0 [facility] ([place]) Comment on above: Performed By: #### H CTRP, HGBRP, GLURP, CLRP, NARP, BGRP, KRP, CARP #### [address] [address] Glucose [Mass/Vol] 152 mg/dL High 82-115 [facility] ([place] Comment on above: Performed By: #### H CTRP, HGBRP, GLURP, CLRP, NARP, BGRP, KRP, CARP #### [address] [address] Potassium [Moles/Vol] 4.1 mmol/L Normal 3.5-5.0 [facility] ([place]) Comment on above: Performed By: #### H CTRP, HGBRP, GLURP, CLRP, NARP, BGRP, KRP, CARP #### [address] [address] Sodium [Moles/Vol] 141 mmol/L Normal 136-145 [facility] ([place] Comment on above: Performed By: #### H CTRP, HGBRP, GLURP, CLRP, NARP, BGRP, KRP, CARP #### [address] [address] Urea nitrogen [Mass/Vol] 14.0 mg/dL Normal 8.0-22.0 [facility] ([place]) Comment on above: Performed By: #### H CTRP, HGBRP, GLURP, CLRP, NARP, BGRP, KRP, CARP #### [place] [address] CAIONon 11-23-2021 Calcium Ionized 1.02 mmol/L Low 1.12-1.32 [facility] ([place]) Comment on above: Performed By: #### H CTRP, HGBRP, GLURP, CLRP, NARP, BGRP, KRP, CARP #### [place] [address] CARPon 11-23-2021 Ionized Calcium - POC 0.99 mmol/L Low 1.12-1.32 [facility] ([place]) Comment on above: Performed By: #### H CTRP, HGBRP, GLURP, CLRP, NARP, BGRP, KRP, CARP #### [place] [address] Ionized Calcium - POC 1.04 mmol/L Low 1.12-1.32 [facility] ([place]) Comment on above: Performed By: #### H CTRP, HGBRP, GLURP, CLRP, NARP, BGRP, KRP, CARP #### [place] [address] Ionized Calcium - POC 0.98 mmol/L Low 1.12-1.32 [facility] ([place]) Comment on above: Performed By: #### K #### [place] [address] Ionized Calcium - POC 1.09 mmol/L Low 1.12-1.32 [facility] ([place]) Comment on above: Performed By: #### H CTRP, HGBRP, GLURP, CLRP, NARP, BGRP, KRP, CARP #### [place] [address] Ionized Calcium - POC 1.17 mmol/L Normal 1.12-1.32 [facility] ([place]) Comment on above: Performed By: #### H CTRP, HGBRP, GLURP, CLRP, NARP, BGRP, KRP, CARP #### [place] [address] CBCon 11-23-2021 Erythrocyte distribution width (RBC) [Ratio] 13.6 % Normal 11.5-15.5 [facility] ([place]) Comment on above: Performed By: #### H CTRP, HGBRP, GLURP, CLRP, NARP, BGRP, KRP, CARP #### [address] [address] Hematocrit (Bld) [Volume fraction] 32.3 % Low 34.0-46.0 [facility] ([place]) Comment on above: Performed By: #### H CTRP, HGBRP, GLURP, CLRP, NARP, BGRP, KRP, CARP #### [place] [id number] Hgb 10.7 G/dL Low 12.0-16.0 [facility] ([place]) Comment on above: Performed By: #### H CTRP, HGBRP, GLURP, CLRP, NARP, BGRP, KRP, CARP #### [place] [id number] MCH (RBC) [Entitic mass] 29.8 pg Normal 27.0-33.0 [facility] ([place]) Comment on above: Performed By: #### H CTRP, HGBRP, GLURP, CLRP, NARP, BGRP, KRP, CARP #### [address] [address] MCHC 33.2 G/dL Normal 32.0-36.0 [facility] ([place]) Comment on above: Performed By: #### H CTRP, HGBRP, GLURP, CLRP, NARP, BGRP, KRP, CARP #### [address] [address] MCV (RBC) [Entitic vol] 89.9 fL Normal 80.0-99.0 A [facility] ([place] Comment on above: Performed By: #### H CTRP, HGBRP, GLURP, CLRP, NARP, BGRP, KRP, CARP #### [place] [id number] Platelet 220 10 3/mcL Normal 150-450 [facility] ([place]) Comment on above: Performed By: #### H CTRP, HGBRP, GLURP, CLRP, NARP, BGRP, KRP, CARP #### [address] [address] Platelet mean volume (Bld) [Entitic vol] 8.6 fL Normal 6.6-10.5 [facility] ([place]) Comment on above: Performed By: #### H CTRP, HGBRP, GLURP, CLRP, NARP, BGRP, KRP, CARP #### [address] [address] RBC 3.60 10 6/mcL Low 4.10-5.30 [facility] ([place]) Comment on above: Performed By: #### H CTRP, HGBRP, GLURP, CLRP, NARP, BGRP, KRP, CARP #### [address] [address] WBC 22.5 10 3/mcL High 4.5-10.8 [facility] ([place]) Comment on above: Performed By: #### H CTRP, HGBRP, GLURP, CLRP, NARP, BGRP, KRP, CARP #### [address] [address] CLRPon 11-23-2021 Chloride [Moles/Vol] 102 mmol/L Normal 98-110 [facility] ([place] Comment on above: Performed By: #### H CTRP, HGBRP, GLURP, CLRP, NARP, BGRP, KRP, CARP #### [address] [address] Chloride [Moles/Vol] 100 mmol/L Normal 98-110 [facility] ([place] Comment on above: Performed By: #### H CTRP, HGBRP, GLURP, CLRP, NARP, BGRP, KRP, CARP #### [address] [address] Chloride [Moles/Vol] 100 mmol/L Normal 98-110 [facility] ([place] Comment on above: Performed By: #### K #### [address] [address] Chloride [Moles/Vol] 103 mmol/L Normal 98-110 [facility] ([place] Comment on above: Performed By: #### H CTRP, HGBRP, GLURP, CLRP, NARP, BGRP, KRP, CARP #### [address] [address] Chloride [Moles/Vol] 102 mmol/L Normal 98-110 [facility] ([place] Comment on above: Performed By: #### H CTRP, HGBRP, GLURP, CLRP, NARP, BGRP, KRP, CARP #### [address] [address] FIBon 11-23-2021 Fibrinogen 313 mg/dL Normal 250-560 [facility] ([place] Comment on above: Performed By: #### H CTRP, HGBRP, GLURP, CLRP, NARP, BGRP, KRP, CARP #### [place] [id number] Fibrinogen 491 mg/dL Normal 250-560 [facility] ([place] Comment on above: Performed By: #### H CTRP, HGBRP, GLURP, CLRP, NARP, BGRP, KRP, CARP #### [address] [address] GLURPon 11-23-2021 Glucose [Mass/Vol] 183 mg/dL High 82-115 [facility] ([place] Comment on above: Performed By: #### H CTRP, HGBRP, GLURP, CLRP, NARP, BGRP, KRP, CARP #### [address] [address] Glucose [Mass/Vol] 203 mg/dL High 82-115 [facility] ([place] Comment on above: Performed By: #### H CTRP, HGBRP, GLURP, CLRP, NARP, BGRP, KRP, CARP #### [address] [address] Glucose [Mass/Vol] 201 mg/dL High 82-115 [facility] ([place] Comment on above: Performed By: #### H CTRP, HGBRP, GLURP, CLRP, NARP, BGRP, KRP, CARP #### [address] [address] Glucose [Mass/Vol] 150 mg/dL High 82-115 [facility] ([place] Comment on above: Performed By: #### H CTRP, HGBRP, GLURP, CLRP, NARP, BGRP, KRP, CARP #### [place] [address] GLURPOrdered By: SYSTEM SYST EM on 11-23-2021 Glucose [Mass/Vol] 204 mg/dL High 82-115 [facility] id Comm SS Comment on above: Performed By: #### K #### [address] [address] HCTRPon 11-23-2021 Hematocrit (Bld) [Volume fraction] 29.0 % Low 37.0-47.0 [facility] ([place]) Comment on above: Performed By: #### H CTRP, HGBRP, GLURP, CLRP, NARP, BGRP, KRP, CARP #### [place] [id number] Hematocrit (Bld) [Volume fraction] 29.0 % Low 37.0-47.0 [facility] ([place] Comment on above: Performed By: #### H CTRP, HGBRP, GLURP, CLRP, NARP, BGRP, KRP, CARP #### [place] [id number] Hematocrit (Bld) [Volume fraction] 37.0 % Normal 37.0-47.0 [facility] ([place] Comment on above: Performed By: #### H CTRP, HGBRP, GLURP, CLRP, NARP, BGRP, KRP, CARP #### [address] [address] Hematocrit (Bld) [Volume fraction] 40.0 % Normal 37.0-47.0 [facility] ([place] Comment on above: Performed By: #### H CTRP, HGBRP, GLURP, CLRP, NARP, BGRP, KRP, CARP #### [place] [address] HCTRPOrdered By: SYSTEM SYST EM on 11-23-2021 Hematocrit (Bld) [Volume fraction] 28.0 % Low 37.0-47.0 AH Rapid Comm SS Comment on above: Performed By: #### K #### [place] [address] HGBRPon 11-23-2021 Hemoglobin (POC) 9.8 G/dL Low 12.0-16.0 [facility] ([place] Comment on above: Performed By: #### H CTRP, HGBRP, GLURP, CLRP, NARP, BGRP, KRP, CARP #### [place] [address] Hemoglobin (POC) 9.9 G/dL Low 12.0-16.0 [facility] ([place] Comment on above: Performed By: #### H CTRP, HGBRP, GLURP, CLRP, NARP, BGRP, KRP, CARP #### [place] [address] Hemoglobin (POC) 9.5 G/dL Low 12.0-16.0 [facility] ([place]) Comment on above: Performed By: #### K #### [place] [address] Hemoglobin (POC) 12.5 G/dL Normal 12.0-16.0 [facility] ([place] Comment on above: Performed By: #### H CTRP, HGBRP, GLURP, CLRP, NARP, BGRP, KRP, CARP #### [place] [id number] Hemoglobin (POC) 13.7 G/dL Normal 12.0-16.0 [facility] ([place] Comment on above: Performed By: #### H CTRP, HGBRP, GLURP, CLRP, NARP, BGRP, KRP, CARP #### [address] [address] [place]den 11-23-2021 Potassium [Moles/Vol] 4.2 mmol/L Normal 3.5-5.0 [facility] ([place] Comment on above: Performed By: #### H CTRP, HGBRP, GLURP, CLRP, NARP, BGRP, KRP, CARP #### [address] [address] KRPon 11-23-2021 Potassium [Moles/Vol] 4.2 mmol/L Normal 3.5-5.0 [facility] ([place] Comment on above: Performed By: #### H CTRP, HGBRP, GLURP, CLRP, NARP, BGRP, KRP, CARP #### [place] [address] Potassium [Moles/Vol] 4.3 mmol/L Normal 3.5-5.0 [facility] ([place] Comment on above: Performed By: #### H CTRP, HGBRP, GLURP, CLRP, NARP, BGRP, KRP, CARP #### [place] [address] Potassium [Moles/Vol] 4.2 mmol/L Normal 3.5-5.0 [facility] ([place] Comment on above: Performed By: #### H CTRP, HGBRP, GLURP, CLRP, NARP, BGRP, KRP, CARP #### [place] [address] Potassium [Moles/Vol] 3.9 mmol/L Normal 3.5-5.0 [facility] ([place] Comment on above: Performed By: #### H CTRP, HGBRP, GLURP, CLRP, NARP, BGRP, KRP, CARP #### [address] [address] KRPOrdered By: SYSTEM SYSTEM on 11-23-2021 Potassium [Moles/Vol] 5.1 mmol/L High 3.5-5.0 Rapid Comm SS Comment on above: Performed By: #### K #### [place] [id number] [place] [address] LABORATORYOrdered By: Angie Mujica on 11-23-2021 aPTT [...] AH Auto Coag SS Heparin dose (APTT) Unknown (11/23/21 6:11 AM) Invalid Interpretation Code AH Auto Coag SS INR Coag (PPP) [Relative time] 0.9 {INR} Invalid Interpretation Code AH Auto Coag SS PT Coag (PPP) [Time] 10.8 s Invalid Interpretation Code 9.0 - 14.9 seconds AH Auto Coag SS LABORATORYOrdered By: Gera Morelos on 11-23-2021 Calcium.ionized (Bld) [Mass/Vol] 1.02 mmol/L Invalid Interpretation Code 1.12 - 1.32 mmol/L AH Auto Chem SS LABORATORYOrdered By: SYSTEM SYSTEM on 11-23-2021 Magnesium [Mass/Vol] 2.5 mg/dL Invalid Interpretation Code 1.6 - 2.4 mg/dL ADM SS Phosphate [Mass/Vol] 1.5 mg/dL Invalid Interpretation Code 2.4 - 5.1 mg/dL AH ADM SS Base excess Calc (Bld) [Moles/Vol] -2.6000 mmol/L Invalid Interpretation Code Rapid Comm SS Calcium.ionized (Bld) [Mass/Vol] 0.99 mmol/L Invalid Interpretation Code 1.12 - 1.32 mmol/L AH Rapid Comm SS Chloride [Moles/Vol] 102 mmol/L Invalid Interpretation Code 98 - 110 mEq/L AH Rapid Comm SS CO2 (Bld) [Partial pressure] [...] - 46.0 mm Hg Rapid Comm SS Hemoglobin (Bld) [Mass/Vol] 9.5 [...] Chemistry and C hemistry - challengeOrdered By: NASOFORM SYSTEM on 11-23-2021 Chloride [Moles/Vol] 100 mmol/L Invalid Interpretation Code 98 - 110 mEq/L Rapid Comm SS Sodium [Moles/Vol] 132 mmol/L Invalid Interpretation Code 136 - 145 mEq/L AH Rapid Comm SS MGon 11-23-2021 Magnesium [Mass/Vol] 2.5 mg/dL High 1.6-2.4 [facility] ([place]) Comment on above: Performed By: #### H CTRP, HGBRP, GLURP, CLRP, NARP, BGRP, KRP, CARP #### [address] [id number] NARPon 11-23-2021 Sodium [Moles/Vol] 134 mmol/L Low 136-145 [facility] ([place]) Comment on above: Performed By: #### H CTRP, HGBRP, GLURP, CLRP, NARP, BGRP, KRP, CARP #### [address] [address] Sodium [Moles/Vol] 132 mmol/L Low 136-145 [facility] ([place]) Comment on above: Performed By: #### H CTRP, HGBRP, GLURP, CLRP, NARP, BGRP, KRP, CARP #### [address] [address] Sodium [Moles/Vol] 132 mmol/L Low 136-145 [facility] ([place]) Comment on above: Performed By: #### K #### [address] [address] Sodium [Moles/Vol] 134 mmol/L Low 136-145 [facility] ([place]) Comment on above: Performed By: #### H CTRP, HGBRP, GLURP, CLRP, NARP, BGRP, KRP, CARP #### [address] [address] Sodium [Moles/Vol] 136 mmol/L Normal 136-145 [facility] ([place]) Comment on above: Performed By: #### H CTRP, HGBRP, GLURP, CLRP, NARP, BGRP, KRP, CARP #### [address] [address] PHOSon 11-23-2021 Phosphate [Mass/Vol] 1.5 mg/dL Low 2.4-5.1 [facility] ([place]) Comment on above: Result Comment: No te - New Reference Range in effect 19 Performed By: #### H CTRP, HGBRP, GLURP, CLRP, NARP, BGRP, KRP, CARP #### [address] [address] PLTon 11-23-2021 Platelet 283 10 3/mcL Normal 150-450 [facility] ([place]) Comment on above: Performed By: #### H CTRP, HGBRP, GLURP, CLRP, NARP, BGRP, KRP, CARP #### [address] [address] PROon 11-23-2021 INR Coag (PPP) [Relative time] 1.1 {INR} Normal [facility] ([place]) Comment on above: Result Comment: [employer] (CHEST, 1992, [id number]) recommended therapeutic range for oral anticoagulant therapy is: LOW RISK: Prophylaxis of venous thrombosis INR: 2.0-3.0 Treatment of pulmonary embolism 2.0-3.0 Prevention of systemic embolism 2.0-3.0 HIGH RISK: Mechanical prosthetic valves 2.5-3.5 Performed By: #### H CTRP, HGBRP, GLURP, CLRP, NARP, BGRP, KRP, CARP #### [address] [address] PT Coag (PPP) [Time] 13.1 s Normal 9.0-14.9 [facility] ([place]) Comment on above: Result Comment: Effe ctive 09/30/07, Protime results may be affected by some antibiotics (i.e. Ciprofloxacin, Azithromycin, Bactrim) which may potentiate the action of oral anticoagulants, with further increases in Protime/INR. Performed By: #### H CTRP, HGBRP, GLURP, CLRP, NARP, BGRP, KRP, CARP #### [address] [address] INR Coag (PPP) [Relative time] 0.9 {INR} Normal [facility] ([place]) Comment on above: Result Comment: [employer] (CHEST, 1991, 102:312S-25S) recommended therapeutic range for oral anticoagulant therapy is: LOW RISK: Prophylaxis of venous thrombosis INR: 2.0-3.0 Treatment of pulmonary embolism 2.0-3.0 Prevention of systemic embolism 2.0-3.0 HIGH RISK: Mechanical prosthetic valves 2.5-3.5 Performed By: #### H CTRP, HGBRP, GLURP, CLRP, NARP, BGRP, KRP, CARP #### [address] [address] PT Coag (PPP) [Time] 10.8 s Normal 9.0-14.9 [facility] ([place]) Comment on above: Result Comment: Effe ctive 09/30/07, Protime results may be affected by some antibiotics (i.e. Ciprofloxacin, Azithromycin, Bactrim) which may potentiate the action of oral anticoagulants, with further increases in Protime/INR. Performed By: #### H CTRP, HGBRP, GLURP, CLRP, NARP, BGRP, KRP, CARP #### [address] [address] Platelet (Product)on Platelet Product Ready Platelet Ready fo r Pickup [facility] ([place]) Comment on above: Order Comment: ON HO LD FOR CVOR Performed By: #### H CTRP, HGBRP, GLURP, CLRP, NARP, BGRP, KRP, CARP #### [address] [address] RBC (Product)on 11-23-2021 RBC Product Ready RBC Ready for Pickup Normal [facility] ([place] Comment on above: Performed By: #### H CTRP, HGBRP, GLURP, CLRP, NARP, BGRP, KRP, CARP #### [address] [address] XR CHEST 1 VIEWon 11-23-2021 XR CHEST [...] 11/23/2021 1:40:56 PM Ordering Provider: POLLY Mercado [facility] ([place]) [id number] 11-17-2021 SARS-CoV-2 (COVID-19) RNA SLOAN+probe Ql (Unsp spec) Negative Normal Negative [facility] ([place]) Comment on above: Performed By: #### H CTRP, HGBRP, GLURP, CLRP, NARP, BGRP, KRP, CARP #### [place] [address] SARS-CoV-2 (COVID-19) RNA SLOAN+probe Ql (Unsp spec) Normal [facility] ([place] Comment on above: Result Comment: Nega tive [...] GLURP, CLRP, NARP, BGRP, KRP, CARP #### [place] [address] Date of Onset [id number] Invalid Interpretation Code [facility] ([place] Comment on above: Performed By: #### H CTRP, HGBRP, GLURP, CLRP, NARP, BGRP, KRP, CARP #### [place] [address] Employed in Healthcare No [facility] ([place] Comment on above: Performed By: #### H CTRP, HGBRP, GLURP, CLRP, NARP, BGRP, KRP, CARP #### [place] [address] First Test No [facility] ([place] Comment on above: Performed By: #### H CTRP, HGBRP, GLURP, CLRP, NARP, BGRP, KRP, CARP #### [place] [address] Hospitalized No [facility] ([place] Comment on above: Performed By: #### H CTRP, HGBRP, GLURP, CLRP, NARP, BGRP, KRP, CARP #### [place] [address] ICU No [facility] ([place] Comment on above: Performed By: #### H CTRP, HGBRP, GLURP, CLRP, NARP, BGRP, KRP, CARP #### [place] [address] Not [facility] ([place] Comment on above: Performed By: #### H CTRP, HGBRP, GLURP, CLRP, NARP, BGRP, KRP, CARP #### [place] [address] Resides in Congregate Care Setting No [facility] ([place] Comment on above: Performed By: #### H CTRP, HGBRP, GLURP, CLRP, NARP, BGRP, KRP, CARP #### [place] [address] Symptomatic as Defined by [facility] No Normal [facility] ([place]) Comment on above: Performed By: #### H CTRP, HGBRP, GLURP, CLRP, NARP, BGRP, KRP, CARP #### [place] [address] LABORATORYOrdered By: Emily Gee on 11-17-2021 ADMITTED [...] Auto (Unsp spec) [#/Vol] 3.11 10*3/uL 0.83-4.51 [facility] Work Phone: Basophil percentageon 2021 Basophils/100 WBC (Bld) 0.6 % 0-1 [facility] Work Phone: Chloride [Moles/Vol] 102 mmol/L 98-107 [facility] Work Phone: Eosinophils/100 WBC (Bld) 1.7 % 0-5 [facility] Work Phone: Glucose [Mass/Vol] 183 mg/dL 74-106 [facility] Work Phone: Comment on above: Fasting Glucose resu lt greater than or equal to 126 mg/dL suggests DIABETES MELLITUS per A.D.A. criteria. Neutrophils (Bld) [#/Vol] 11.0 10*3/uL 2.0-7.7 [facility] Work Phone: Neutrophils/100 WBC (Bld) 70.1 % 47-70 [facility] Work Phone: Potassium [Moles/Vol] 4.1 mmol/L 3.5-5.1 [facility] Work Phone: Sodium [Moles/Vol] 136 mmol/L 136-145 [facility] Work Phone: WBC (Bld) [#/Vol] 15.7 10*3/uL 4.4-11.0 [facility] Work Phone: Blood erythrocytes count (nu mber/volume)on 11-05-2021 RBC (Bld) [#/Vol] 4.84 10*6/uL 4.2-5.4 [facility] Work Phone: Blood hemoglobin measurement (mass/volume)on 11-05-2021 Hemoglobin (Bld) [Mass/Vol] 14.4 g/dL 12.0-15.0 [facility] Work Phone: Blood lymphocytes/100 leukoc yteson 11-05-2021 Lymphocytes/100 WBC (Bld) 19.8 % 19-41 [facility] Work Phone: Blood monocytes/100 leukocyt eson 11-05-2021 Monocytes/100 WBC (Bld) 6.9 % 0-10 [facility] Work Phone: Blood platelet mean volumeon 11-05-2021 Platelet mean volume (Bld) [Entitic vol] 10.2 fL 6.2-12.0 [facility] Work Phone: Determination of erythrocyte mean corpuscular volume (MCV)on 11-05-2021 MCV (RBC) [Entitic vol] 91.3 fL 81-99 [facility] Work Phone: Hematocrit Auto (Bld) [Volum e fraction]on 11-05-2021 Hematocrit (Bld) [Volume fraction] 44.2 % 37-47 [facility] Work Phone: Laboratory - Chemistry and C hemistry - challengeon 11-05-2021 CO2 [Moles/Vol] 27.0 mmol/L 21.0-32.0 [facility] Work Phone: Urea nitrogen/Creatinine [Mass ratio] 19.9 mg/mg 10-20 [facility] Work Phone: Laboratory - Coagulationon 0 11-05-2021 aPTT Coag (Bld) [Time] 25.6 s 24.1-36.2 [facility] Work Phone: [phone] Laboratory - Hematology and Cell countson 11-05-2021 Erythrocyte distribution width (RBC) [Entitic vol] 44.1 fL 35.1-43.9 [facility] Work Phone: [phone] Erythrocyte distribution width (RBC) [Ratio] 13.1 % 11.6-14.6 [facility] Work Phone: [phone] Immature granulocytes/100 WBC (Bld) 0.900 % 0.0-0.9 [facility] Work Phone: [phone] Comment on above: IG% - Immature Granu locytes (promyelocytes, myelocytes and metamyelocytes) > 1% indicates that a LEFT SHIFT is Present. MCH (RBC) [Entitic mass] 29.8 pg 27.0-32.0 [facility] Work Phone: [phone] Nucleated RBC/100 WBC (Bld) [Ratio] 0 % 0-5 [facility] Work Phone: [phone] MCHC Auto (RBC) [Mass/Vol]on 11-05-2021 MCHC (RBC) [Mass/Vol] 32.6 g/dL 32-36 [facility] Work Phone: [phone] No Panel Informationon 11-05 Estimated Creatinine Clearance Calc 51.75 ml/min [facility] Work Phone: [phone] Estimated GFR (MDRD) Amer 91 mL/min >60 [facility] Work Phone: [phone] Comment on above: GFR Calc Estimated GFR (MDRD) Non-Af Amer 75 mL/min >60 [facility] Work Phone: [phone] Comment on above: Non- GFR Calc Troponin I High Sensitivity 12 pg/mL 3.0-54.0 [facility] Work Phone: [phone] Comment on above: Please Note: New Deirde t Units and Gender Specific Reference Ranges. For more information see Policy Stat Procedure [place] High Sensitivity Troponin (TNIH) and attachments. Platelets bldon 11-05-2021 Platelets (Bld) [#/Vol] 320 10*3/uL 150-450 [facility] Work Phone: Serum or plasma calcium betsy urement (mass/volume)on 11-05-2021 Calcium [Mass/Vol] 9.6 mg/dL 8.5-10.1 [facility] Work Phone: Serum or plasma creatinine m easurement (mass/volume)on 11-05-2021 Creatinine [Mass/Vol] 0.80 mg/dL 0.55-1.02 [facility] Work Phone: Comment on above: The validity of the calculated GFR & GFRAA in patients over 70 years has not been determined. Clinical correlation is essential. Serum or plasma urea nitroge n measurement (mass/volume)on 11-05-2021 Urea nitrogen [Mass/Vol] 16 mg/dL 7-18 [facility] Work Phone: Thin prep Papanicolaou smear with manual screeningon 11-05-2021 Thin prep Papanicolaou smear with manual screening 7 5-15 [facility] Work Phone: XR CHEST 2 VIEWSon [...] Date: 11/01/2021 8:01:10 AM Ordering Provider: POLLY Mercado [facility] ([place]) .Auto Diffon 10-31-2021 Basophil, Absolute 0.1 10 3/mcL Normal 0.0-0.3 [facility] ([place]) Comment on above: Performed By: #### H CTRP, HGBRP, GLURP, CLRP, NARP, BGRP, KRP, CARP #### [address] [address] Basophils/100 WBC (Bld) 0.8 % Normal 0.0-2.5 A [facility] ([place]) Comment on above: Performed By: #### H CTRP, HGBRP, GLURP, CLRP, NARP, BGRP, KRP, CARP #### [address] [address] Eosinophil, Absolute 0.3 10 3/mcL Normal 0.0-0.7 [facility] ([place]) Comment on above: Performed By: #### H CTRP, HGBRP, GLURP, CLRP, NARP, BGRP, KRP, CARP #### [address] [address] Eosinophils/100 WBC (Bld) 2.6 % Normal 0.0-6.0 [facility] ([place]) Comment on above: Performed By: #### H CTRP, HGBRP, GLURP, CLRP, NARP, BGRP, KRP, CARP #### [address] [address] Lymphocyte, Absolute 2.5 10 3/mcL Normal 0.9-4.3 [facility] ([place]) Comment on above: Performed By: #### H CTRP, HGBRP, GLURP, CLRP, NARP, BGRP, KRP, CARP #### [address] [address] Lymphocytes/100 WBC (Bld) 22.3 % Normal 20.0-40.0 [facility] ([place]) Comment on above: Performed By: #### H CTRP, HGBRP, GLURP, CLRP, NARP, BGRP, KRP, CARP #### [address] [address] Monocyte, Absolute 0.7 10 3/mcL Normal 0.1-1.4 [facility] ([place] Comment on above: Performed By: #### H CTRP, HGBRP, GLURP, CLRP, NARP, BGRP, KRP, CARP #### [address] [address] Monocytes/100 WBC (Bld) 6.5 % Normal 2.0-13.0 A [facility] ([place]) Comment on above: Performed By: #### H CTRP, HGBRP, GLURP, CLRP, NARP, BGRP, KRP, CARP #### [address] [address] Neutrophils/100 WBC (Bld) 67.8 % Normal 50.0-75.0 [facility] ([place]) Comment on above: Performed By: #### H CTRP, HGBRP, GLURP, CLRP, NARP, BGRP, KRP, CARP #### [address] [address] .GFRon 10-31-2021 GFR Non- >60 Normal [facility] ([place] Comment on above: Result Comment: GFR Population [...] GLURP, CLRP, NARP, BGRP, KRP, CARP #### [address] [address] GFR >60 Normal [facility] ([place] Comment on above: Result Comment: GFR Population [...] GLURP, CLRP, NARP, BGRP, KRP, CARP #### [place] [address] .MDWon 10-31-2021 Monocyte Distribution Width Not performed Normal 0.00-20.00 [facility] ([place]) Comment on above: Result Comment: MDW testing performed only on adult ER patients between the ages of 18-89 years. Performed By: #### H CTRP, HGBRP, GLURP, CLRP, NARP, BGRP, KRP, CARP #### [address] [address] .NEUABSon 10-31-2021 Neutrophil, Absolute 7.7 10 3/mcL Normal 2.3-8.1 [facility] ([place]) Comment on above: Performed By: #### H CTRP, HGBRP, GLURP, CLRP, NARP, BGRP, KRP, CARP #### [place] [address] A1Con 10-31-2021 HbA1c (Bld) [Mass fraction] 9.7 % High 4.0-6.0 [facility] ([place]) Comment on above: Performed By: #### H CTRP, HGBRP, GLURP, CLRP, NARP, BGRP, KRP, CARP #### [address] [address] ABO/Rh (Gel)on 10-31-2021 ABO/Rh Interp Positive Invalid Interpretation Code [facility] ([place]) Comment on above: Performed By: #### H CTRP, HGBRP, GLURP, CLRP, NARP, BGRP, KRP, CARP #### [place] [id number] ABS (Gel)on 10-31-2021 ABSC Interp (Gel) Negative Normal [facility] ([place]) Comment on above: Performed By: #### H CTRP, HGBRP, GLURP, CLRP, NARP, BGRP, KRP, CARP #### [place] [phone] APTTon 10-31-2021 aPTT Coag (Bld) [Time] 28.2 s Normal 25.0-35.0 [facility] ([place]) Comment on above: Result Comment: For Heparin anticoagulation therapy, the recommended therapeutic range is: 54-77 seconds (APTT Correlation with Anti-Xa therapeutic range of 0.3-0.7 units/ml). PLEASE REFERENCE THE PHARMACY PROTOCOL FOR DOSING. Performed By: #### H CTRP, HGBRP, GLURP, CLRP, NARP, BGRP, KRP, CARP #### [place] [address] Heparin dose (APTT) None Normal [facility] ([place]) Comment on above: Performed By: #### H CTRP, HGBRP, GLURP, CLRP, NARP, BGRP, KRP, CARP #### [address] [address] CBCon 10-31-2021 Erythrocyte distribution width (RBC) [Ratio] 13.6 % Normal 11.5-15.5 [facility] ([place]) Comment on above: Performed By: #### H CTRP, HGBRP, GLURP, CLRP, NARP, BGRP, KRP, CARP #### [place] [address] Hematocrit (Bld) [Volume fraction] 40.5 % Normal 34.0-46.0 [facility] ([place]) Comment on above: Performed By: #### H CTRP, HGBRP, GLURP, CLRP, NARP, BGRP, KRP, CARP #### [place] [address] Hgb 13.4 G/dL Normal 12.0-16.0 [facility] ([place]) Comment on above: Performed By: #### H CTRP, HGBRP, GLURP, CLRP, NARP, BGRP, KRP, CARP #### [place] [address] MCH (RBC) [Entitic mass] 29.8 pg Normal 27.0-33.0 [facility] ([place]) Comment on above: Performed By: #### H CTRP, HGBRP, GLURP, CLRP, NARP, BGRP, KRP, CARP #### [place] [address] MCHC 33.1 G/dL Normal 32.0-36.0 [facility] ([place]) Comment on above: Performed By: #### H CTRP, HGBRP, GLURP, CLRP, NARP, BGRP, KRP, CARP #### [place] [address] MCV (RBC) [Entitic vol] 90.0 fL Normal 80.0-99.0 A [facility] ([place]) Comment on above: Performed By: #### H CTRP, HGBRP, GLURP, CLRP, NARP, BGRP, KRP, CARP #### [place] [id number] Platelet 291 10 3/mcL Normal 150-450 [facility] ([place]) Comment on above: Performed By: #### H CTRP, HGBRP, GLURP, CLRP, NARP, BGRP, KRP, CARP #### [address] [address] Platelet mean volume (Bld) [Entitic vol] 8.9 fL Normal 6.6-10.5 [facility] ([place]) Comment on above: Performed By: #### H CTRP, HGBRP, GLURP, CLRP, NARP, BGRP, KRP, CARP #### [address] [address] RBC 4.50 10 6/mcL Normal 4.10-5.30 [facility] ([place]) Comment on above: Performed By: #### H CTRP, HGBRP, GLURP, CLRP, NARP, BGRP, KRP, CARP #### [address] [address] WBC 11.4 10 3/mcL High 4.5-10.8 [facility] ([place]) Comment on above: Performed By: #### H CTRP, HGBRP, GLURP, CLRP, NARP, BGRP, KRP, CARP #### [address] [address] CMPon 10-31-2021 Albumin Level 3.4 G/dL Normal 3.2-4.8 [facility] ([place]) Comment on above: Performed By: #### H CTRP, HGBRP, GLURP, CLRP, NARP, BGRP, KRP, CARP #### [address] [address] Albumin/Globulin [Mass ratio] 1.0 {ratio} Normal 0.9-1.6 [facility] ([place]) Comment on above: Performed By: #### H CTRP, HGBRP, GLURP, CLRP, NARP, BGRP, KRP, CARP #### [address] [address] ALP [Catalytic activity/Vol] 113 U/L Normal 38-126 [facility] ([place]) Comment on above: Performed By: #### H CTRP, HGBRP, GLURP, CLRP, NARP, BGRP, KRP, CARP #### [address] [address] ALT [Catalytic activity/Vol] 25 U/L Normal 10-49 [facility] ([place]) Comment on above: Performed By: #### H CTRP, HGBRP, GLURP, CLRP, NARP, BGRP, KRP, CARP #### [address] [address] AST [Catalytic activity/Vol] 24 U/L Normal 8-34 [facility] ([place]) Comment on above: Performed By: #### H CTRP, HGBRP, GLURP, CLRP, NARP, BGRP, KRP, CARP #### [address] [address] Bili Total 0.50 mg/dL Normal 0.20-1.20 [facility] ([place]) Comment on above: Result Comment: Use of this assay is not recommended for patients undergoing treatment with eltrombopag due to the potential for falsely elevated results. Performed By: #### H CTRP, HGBRP, GLURP, CLRP, NARP, BGRP, KRP, CARP #### [address] [address] BUN/Creatinine Ratio 27.6 ratio High 10.0-22.0 [facility] ([place]) Comment on above: Performed By: #### H CTRP, HGBRP, GLURP, CLRP, NARP, BGRP, KRP, CARP #### [address] [address] Calcium [Mass/Vol] 9.6 mg/dL Normal 8.7-10.4 [facility] ([place]) Comment on above: Performed By: #### H CTRP, HGBRP, GLURP, CLRP, NARP, BGRP, KRP, CARP #### [address] [address] Chloride [Moles/Vol] 98 mmol/L Normal 98-110 [facility] ([place]) Comment on above: Performed By: #### H CTRP, HGBRP, GLURP, CLRP, NARP, BGRP, KRP, CARP #### [address] [address] CO2 [Moles/Vol] 31 mmol/L Normal 22-32 [facility] ([place]) Comment on above: Performed By: #### H CTRP, HGBRP, GLURP, CLRP, NARP, BGRP, KRP, CARP #### [address] [address] Creatinine [Mass/Vol] 0.76 mg/dL Normal 0.50-1.20 [facility] ([place]) Comment on above: Performed By: #### H CTRP, HGBRP, GLURP, CLRP, NARP, BGRP, KRP, CARP #### [address] [address] Electrolyte Balance 5.0 mEq/L Normal 4.0-15.0 [facility] ([place]) Comment on above: Performed By: #### H CTRP, HGBRP, GLURP, CLRP, NARP, BGRP, KRP, CARP #### [address] [address] Globulin 3.5 G/dL Normal 1.5-3.8 [facility] ([place]) Comment on above: Performed By: #### H CTRP, HGBRP, GLURP, CLRP, NARP, BGRP, KRP, CARP #### [address] [address] Glucose [Mass/Vol] 233 mg/dL High 82-115 [facility] ([place] Comment on above: Performed By: #### H CTRP, HGBRP, GLURP, CLRP, NARP, BGRP, KRP, CARP #### [address] [address] Potassium [Moles/Vol] 5.0 mmol/L Normal 3.5-5.0 [facility] ([place]) Comment on above: Performed By: #### H CTRP, HGBRP, GLURP, CLRP, NARP, BGRP, KRP, CARP #### [address] [address] Sodium [Moles/Vol] 134 mmol/L Low 136-145 [facility] ([place] Comment on above: Performed By: #### H CTRP, HGBRP, GLURP, CLRP, NARP, BGRP, KRP, CARP #### [place] [id number] Total Protein 6.9 G/dL Normal 5.7-8.2 [facility] ([place]) Comment on above: Result Comment: No te - New Reference Range in effect 19 Performed By: #### H CTRP, HGBRP, GLURP, CLRP, NARP, BGRP, KRP, CARP #### [place] [id number] Urea nitrogen [Mass/Vol] 21.0 mg/dL Normal 8.0-22.0 [facility] ([place]) Comment on above: Performed By: #### H CTRP, HGBRP, GLURP, CLRP, NARP, BGRP, KRP, CARP #### [place] [id number] FIBon 10-31-2021 Fibrinogen 504 mg/dL Normal 250-560 [facility] ([place]) Comment on above: Performed By: #### H CTRP, HGBRP, GLURP, CLRP, NARP, BGRP, KRP, CARP #### [address] [address] PROon 10-31-2021 INR Coag (PPP) [Relative time] 0.9 {INR} Normal [facility] ([place]) Comment on above: Result Comment: [employer] (CHEST, 1992, 102:312S-25S) recommended therapeutic range for oral anticoagulant therapy is: LOW RISK: Prophylaxis of venous thrombosis INR: 2.0-3.0 Treatment of pulmonary embolism 2.0-3.0 Prevention of systemic embolism 2.0-3.0 HIGH RISK: Mechanical prosthetic valves 2.5-3.5 Performed By: #### H CTRP, HGBRP, GLURP, CLRP, NARP, BGRP, KRP, CARP #### [place] [id number] PT Coag (PPP) [Time] 10.9 s Normal 9.0-14.9 [facility] ([place]) Comment on above: Result Comment: Effe ctive 09/30/07, Protime results may be affected by some antibiotics (i.e. Ciprofloxacin, Azithromycin, Bactrim) which may potentiate the action of oral anticoagulants, with further increases in Protime/INR. Performed By: #### H CTRP, HGBRP, GLURP, CLRP, NARP, BGRP, KRP, CARP #### [place] [address] TSHon 10-31-2021 TSH 9.830 mIU/mL High 0.550-4.780 [facility] ([place]) Comment on above: Result Comment: No te - New Reference Range in effect 19 Performed By: #### H CTRP, HGBRP, GLURP, CLRP, NARP, BGRP, KRP, CARP #### [place] [address] UAon 10-31-2021 Color (U) Straw Normal [facility] ([place] Comment on above: Performed By: #### H CTRP, HGBRP, GLURP, CLRP, NARP, BGRP, KRP, CARP #### [place] [address] Glucose (U) [Mass/Vol] 500 mg/dL Abnormal Negative [facility] ([place]) Comment on above: Performed By: #### H CTRP, HGBRP, GLURP, CLRP, NARP, BGRP, KRP, CARP #### [place] [address] Ketones Ql (U) Negative Normal Neg-Trace [facility] ([place] Comment on above: Performed By: #### H CTRP, HGBRP, GLURP, CLRP, NARP, BGRP, KRP, CARP #### [place] [address] UA Appear Clear Normal Clear [facility] ([place] Comment on above: Performed By: #### H CTRP, HGBRP, GLURP, CLRP, NARP, BGRP, KRP, CARP #### [place] [address] UA Blood Negative Normal Neg-Trace [facility] ([place] Comment on above: Performed By: #### H CTRP, HGBRP, GLURP, CLRP, NARP, BGRP, KRP, CARP #### [address] [address] UA Leuk Est Small Abnormal Negative [facility] ([place] Comment on above: Performed By: #### H CTRP, HGBRP, GLURP, CLRP, NARP, BGRP, KRP, CARP #### [address] [address] UA Nitrite Negative Normal Negative [facility] ([place]) Comment on above: Performed By: #### H CTRP, HGBRP, GLURP, CLRP, NARP, BGRP, KRP, CARP #### [place] [address] UA pH 5.5 Normal 5.0 - 8.0 [facility] ([place]) Comment on above: Performed By: #### H CTRP, HGBRP, GLURP, CLRP, NARP, BGRP, KRP, CARP #### [place] [address] UA Protein Negative Normal Negative [facility] ([place] Comment on above: Performed By: #### H CTRP, HGBRP, GLURP, CLRP, NARP, BGRP, KRP, CARP #### [address] [address] UA Spec Grav 1.010 Normal 1.006-1.029 [facility] ([place]) Comment on above: Performed By: #### H CTRP, HGBRP, GLURP, CLRP, NARP, BGRP, KRP, CARP #### [address] [address] UA Specimen Type Clean Catch Normal [facility] ([place]) Comment on above: Performed By: #### H CTRP, HGBRP, GLURP, CLRP, NARP, BGRP, KRP, CARP #### [address] [address] UA Urobilinogen 0.2 E.U./dL Normal 0.2-1.0 [facility] ([place]) Comment on above: Performed By: #### H CTRP, HGBRP, GLURP, CLRP, NARP, BGRP, KRP, CARP #### [place] [address] Urobilinogen (U) [Mass/Vol] Negative Normal Neg-Trace [facility] ([place] Comment on above: Performed By: #### H CTRP, HGBRP, GLURP, CLRP, NARP, BGRP, KRP, CARP #### [address] [address] UAMICon 10-31-2021 UA RBC Negative Normal 0-2 [facility] ([place] Comment on above: Performed By: #### H CTRP, HGBRP, GLURP, CLRP, NARP, BGRP, KRP, CARP #### [place] [address] UA Squam Epithelial Negative Normal 0-20 [facility] ([place] Comment on above: Performed By: #### H CTRP, HGBRP, GLURP, CLRP, NARP, BGRP, KRP, CARP #### [place] [address] UA WBC Rare Normal 0-5 [facility] ([place] Comment on above: Performed By: #### H CTRP, HGBRP, GLURP, CLRP, NARP, BGRP, KRP, CARP #### [address] [address] .Auto Diffon 10-11-2021 Basophil, Absolute 0.1 10 3/mcL Normal 0.0-0.3 [facility] ([place] Comment on above: Performed By: #### H CTRP, HGBRP, GLURP, CLRP, NARP, BGRP, KRP, CARP #### [place] [id number] Basophils/100 WBC (Bld) 0.4 % Normal 0.0-2.5 A [facility] ([place]) Comment on above: Performed By: #### H CTRP, HGBRP, GLURP, CLRP, NARP, BGRP, KRP, CARP #### [address] [address] Eosinophil, Absolute 0.3 10 3/mcL Normal 0.0-0.7 [facility] ([place] Comment on above: Performed By: #### H CTRP, HGBRP, GLURP, CLRP, NARP, BGRP, KRP, CARP #### [address] [address] Eosinophils/100 WBC (Bld) 2.2 % Normal 0.0-6.0 [facility] ([place]) Comment on above: Performed By: #### H CTRP, HGBRP, GLURP, CLRP, NARP, BGRP, KRP, CARP #### [address] [address] Lymphocyte, Absolute 2.8 10 3/mcL Normal 0.9-4.3 [facility] ([place]) Comment on above: Performed By: #### H CTRP, HGBRP, GLURP, CLRP, NARP, BGRP, KRP, CARP #### [address] [address] Lymphocytes/100 WBC (Bld) 22.2 % Normal 20.0-40.0 [facility] ([place]) Comment on above: Performed By: #### H CTRP, HGBRP, GLURP, CLRP, NARP, BGRP, KRP, CARP #### [address] [address] Monocyte, Absolute 1.0 10 3/mcL Normal 0.1-1.4 [facility] ([place]) Comment on above: Performed By: #### H CTRP, HGBRP, GLURP, CLRP, NARP, BGRP, KRP, CARP #### [address] [address] Monocytes/100 WBC (Bld) 7.7 % Normal 2.0-13.0 [facility] ([place]) Comment on above: Performed By: #### H CTRP, HGBRP, GLURP, CLRP, NARP, BGRP, KRP, CARP #### [address] [address] Neutrophils/100 WBC (Bld) 67.5 % Normal 50.0-75.0 [facility] ([place]) Comment on above: Performed By: #### H CTRP, HGBRP, GLURP, CLRP, NARP, BGRP, KRP, CARP #### [address] [address] .GFRon 10-11-2021 GFR Non- >60 Normal [facility] ([place]) Comment on above: Result Comment: GFR Population [...] GLURP, CLRP, NARP, BGRP, KRP, CARP #### [address] [address] GFR >60 Normal [facility] ([place]) Comment on above: Result Comment: GFR Population [...] GLURP, CLRP, NARP, BGRP, KRP, CARP #### [address] [address] .MDWon 10-11-2021 Monocyte Distribution Width 19.02 Normal 0.00-20.00 [facility] ([place]) Comment on above: Result Comment: For ED adult patients suspected of sepsis, MDW<=20.0 does not rule out sepsis or risk of sepsis Performed By: #### H CTRP, HGBRP, GLURP, CLRP, NARP, BGRP, KRP, CARP #### [address] [address] .NEUABSon 10-11-2021 Neutrophil, Absolute 8.4 10 3/mcL High 2.3-8.1 [facility] ([place]) Comment on above: Performed By: #### H CTRP, HGBRP, GLURP, CLRP, NARP, BGRP, KRP, CARP #### [place] [address] CBCon 10-11-2021 Erythrocyte distribution width (RBC) [Ratio] 13.6 % Normal 11.5-15.5 [facility] ([place]) Comment on above: Performed By: #### H CTRP, HGBRP, GLURP, CLRP, NARP, BGRP, KRP, CARP #### [place] [address] Hematocrit (Bld) [Volume fraction] 41.1 % Normal 34.0-46.0 [facility] ([place]) Comment on above: Performed By: #### H CTRP, HGBRP, GLURP, CLRP, NARP, BGRP, KRP, CARP #### [place] [id number] Hgb 13.4 G/dL Normal 12.0-16.0 [facility] ([place] Comment on above: Performed By: #### H CTRP, HGBRP, GLURP, CLRP, NARP, BGRP, KRP, CARP #### [place] [phone] MCH (RBC) [Entitic mass] 29.5 pg Normal 27.0-33.0 [facility] ([place]) Comment on above: Performed By: #### H CTRP, HGBRP, GLURP, CLRP, NARP, BGRP, KRP, CARP #### [address] [address] MCHC 32.7 G/dL Normal 32.0-36.0 [facility] ([place]) Comment on above: Performed By: #### H CTRP, HGBRP, GLURP, CLRP, NARP, BGRP, KRP, CARP #### [address] [address] MCV (RBC) [Entitic vol] 90.1 fL Normal 80.0-99.0 A [facility] ([place]) Comment on above: Performed By: #### H CTRP, HGBRP, GLURP, CLRP, NARP, BGRP, KRP, CARP #### [place] [phone] Platelet 291 10 3/mcL Normal 150-450 [facility] ([place]) Comment on above: Performed By: #### H CTRP, HGBRP, GLURP, CLRP, NARP, BGRP, KRP, CARP #### [place] [phone] Platelet mean volume (Bld) [Entitic vol] 8.4 fL Normal 6.6-10.5 [facility] ([place]) Comment on above: Performed By: #### H CTRP, HGBRP, GLURP, CLRP, NARP, BGRP, KRP, CARP #### [place] [address] RBC 4.56 10 6/mcL Normal 4.10-5.30 [facility] ([place]) Comment on above: Performed By: #### H CTRP, HGBRP, GLURP, CLRP, NARP, BGRP, KRP, CARP #### [place] [phone] WBC 12.5 10 3/mcL High 4.5-10.8 [facility] ([place]) Comment on above: Performed By: #### H CTRP, HGBRP, GLURP, CLRP, NARP, BGRP, KRP, CARP #### [address] [address] CMPon 10-11-2021 Albumin Level 3.6 G/dL Normal 3.2-4.8 [facility] ([place]) Comment on above: Performed By: #### H CTRP, HGBRP, GLURP, CLRP, NARP, BGRP, KRP, CARP #### [address] [address] Albumin/Globulin [Mass ratio] 1.0 {ratio} Normal 0.9-1.6 [facility] ([place]) Comment on above: Performed By: #### H CTRP, HGBRP, GLURP, CLRP, NARP, BGRP, KRP, CARP #### [address] [address] ALP [Catalytic activity/Vol] 111 U/L Normal 38-126 [facility] ([place]) Comment on above: Performed By: #### H CTRP, HGBRP, GLURP, CLRP, NARP, BGRP, KRP, CARP #### [address] [address] ALT [Catalytic activity/Vol] 22 U/L Normal 10-49 [facility] ([place]) Comment on above: Performed By: #### H CTRP, HGBRP, GLURP, CLRP, NARP, BGRP, KRP, CARP #### [address] [address] AST [Catalytic activity/Vol] 28 U/L Normal 8-34 [facility] ([place]) Comment on above: Performed By: #### H CTRP, HGBRP, GLURP, CLRP, NARP, BGRP, KRP, CARP #### [address] [address] Bili Total 0.40 mg/dL Normal 0.20-1.20 [facility] ([place]) Comment on above: Result Comment: Use of this assay is not recommended for patients undergoing treatment with eltrombopag due to the potential for falsely elevated results. Performed By: #### H CTRP, HGBRP, GLURP, CLRP, NARP, BGRP, KRP, CARP #### [address] [address] BUN/Creatinine Ratio 22.1 ratio High 10.0-22.0 [facility] ([place]) Comment on above: Performed By: #### H CTRP, HGBRP, GLURP, CLRP, NARP, BGRP, KRP, CARP #### [address] [address] Calcium [Mass/Vol] 9.5 mg/dL Normal 8.7-10.4 [facility] ([place]) Comment on above: Performed By: #### H CTRP, HGBRP, GLURP, CLRP, NARP, BGRP, KRP, CARP #### [address] [address] Chloride [Moles/Vol] 104 mmol/L Normal 98-110 [facility] ([place]) Comment on above: Performed By: #### H CTRP, HGBRP, GLURP, CLRP, NARP, BGRP, KRP, CARP #### [address] [address] CO2 [Moles/Vol] 28 mmol/L Normal 22-32 [facility] ([place]) Comment on above: Performed By: #### H CTRP, HGBRP, GLURP, CLRP, NARP, BGRP, KRP, CARP #### [address] [address] Creatinine [Mass/Vol] 0.68 mg/dL Normal 0.50-1.20 [facility] ([place]) Comment on above: Performed By: #### H CTRP, HGBRP, GLURP, CLRP, NARP, BGRP, KRP, CARP #### [address] [address] Electrolyte Balance 4.0 mEq/L Normal 4.0-15.0 [facility] ([place]) Comment on above: Performed By: #### H CTRP, HGBRP, GLURP, CLRP, NARP, BGRP, KRP, CARP #### [address] [address] Globulin 3.6 G/dL Normal 1.5-3.8 [facility] ([place]) Comment on above: Performed By: #### H CTRP, HGBRP, GLURP, CLRP, NARP, BGRP, KRP, CARP #### [address] [address] Glucose [Mass/Vol] 178 mg/dL High 82-115 [facility] ([place]) Comment on above: Performed By: #### H CTRP, HGBRP, GLURP, CLRP, NARP, BGRP, KRP, CARP #### [address] [address] Potassium [Moles/Vol] 4.0 mmol/L Normal 3.5-5.0 [facility] ([place]) Comment on above: Performed By: #### H CTRP, HGBRP, GLURP, CLRP, NARP, BGRP, KRP, CARP #### [address] [address] Sodium [Moles/Vol] 136 mmol/L Normal 136-145 [facility] ([place]) Comment on above: Performed By: #### H CTRP, HGBRP, GLURP, CLRP, NARP, BGRP, KRP, CARP #### [address] [address] Total Protein 7.2 G/dL Normal 5.7-8.2 [facility] ([place]) Comment on above: Result Comment: No te - New Reference Range in effect 19 Performed By: #### H CTRP, HGBRP, GLURP, CLRP, NARP, BGRP, KRP, CARP #### [address] [address] Urea nitrogen [Mass/Vol] 15.0 mg/dL Normal 8.0-22.0 [facility] ([place]) Comment on above: Performed By: #### H CTRP, HGBRP, GLURP, CLRP, NARP, BGRP, KRP, CARP #### [address] [address] PBNPon 10-11-2021 Natriuretic peptide B (Bld) [Mass/Vol] 123 pg/mL Normal 0-900 [facility] ([place]) Comment on above: Result Comment: NT-p roBNP results of less than 300 pg/mL effectively rules out acute congestive heart failure with 99% negative predictive value. Performed By: #### H CTRP, HGBRP, GLURP, CLRP, NARP, BGRP, KRP, CARP #### [address] [address] TROPHSon 10-11-2021 Troponin I High Sensitivity 7.31 ng/L Normal 0.00-34.00 [facility] ([place]) Comment on above: Result Comment: If t he High Sensitive Troponin result is below the 99th percentile value (<45 ng/L) at the first blood draw, at least two additional blood samples should be drawn before results are interpreted as negative for AMI. Performed By: #### H CTRP, HGBRP, GLURP, CLRP, NARP, BGRP, KRP, CARP #### [place] [phone] XR CHEST 1 VIEWon 10-11-2021 XR CHEST [...] 10/11/2021 5:14:20 AM Ordering Provider: ANTWAN Mercado [facility] ([place]) Absolute lymphocyte counton 09-08-2021 Lymphocytes Auto (Unsp spec) [#/Vol] 2.25 10*3/uL 0.83-4.51 [facility] Work Phone: Basophil percentageon 2021 Basophils/100 WBC (Bld) 0.6 % 0-1 [facility] Work Phone: Bilirubin [Mass/Vol] 0.50 mg/dL 0.20-1.00 [facility] Work Phone: Comment on above: For patients on eltr ombopag therapy, use of Dimension Sodus TBIL is not recommended. Chloride [Moles/Vol] 102 mmol/L 98-107 [facility] Work Phone: Eosinophils/100 WBC (Bld) 2.6 % 0-5 [facility] Work Phone: Glucose [Mass/Vol] 287 mg/dL 74-106 [facility] Work Phone: Comment on above: Glucose result great er than or equal to 200 mg/dLsuggests DIABETES MELLITUS per A.D.A. criteria. Neutrophils (Bld) [#/Vol] 10.8 10*3/uL 2.0-7.7 [facility] Work Phone: Neutrophils/100 WBC (Bld) 74.7 % 47-70 [facility] Work Phone: Potassium [Moles/Vol] 4.2 mmol/L 3.5-5.1 [facility] Work Phone: Protein [Mass/Vol] 7.2 g/dL 6.4-8.2 [facility] Work Phone: Sodium [Moles/Vol] 137 mmol/L 136-145 [facility] Work Phone: WBC (Bld) [#/Vol] 14.4 10*3/uL 4.4-11.0 [facility] Work Phone: Blood erythrocytes count (nu mber/volume)on 09-08-2021 RBC (Bld) [#/Vol] 4.53 10*6/uL 4.2-5.4 [facility] Work Phone: [phone] Blood hemoglobin measurement (mass/volume)on 09-08-2021 Hemoglobin (Bld) [Mass/Vol] 13.5 g/dL 12.0-15.0 [facility] Work Phone: [phone] Blood lymphocytes/100 leukoc yteson 09-08-2021 Lymphocytes/100 WBC (Bld) 15.6 % 19-41 [facility] Work Phone: [phone] Blood monocytes/100 leukocyt eson 09-08-2021 Monocytes/100 WBC (Bld) 5.8 % 0-10 [facility] Work Phone: [phone] Blood platelet mean volumeon 09-08-2021 Platelet mean volume (Bld) [Entitic vol] 10.7 fL 6.2-12.0 [facility] Work Phone: [phone] Determination of erythrocyte mean corpuscular volume (MCV)on 09-08-2021 MCV (RBC) [Entitic vol] 92.5 fL 81-99 [facility] Work Phone: [phone] Hematocrit Auto (Bld) [Volum e fraction]on 09-08-2021 Hematocrit (Bld) [Volume fraction] 41.9 % 37-47 [facility] Work Phone: [phone] Laboratory - Chemistry and C hemistry - challengeon 09-08-2021 ALP [Catalytic activity/Vol] 96 U/L 45-117 [facility] Work Phone: [phone] ALT [Catalytic activity/Vol] 28 U/L 13-56 [facility] Work Phone: [phone] CO2 [Moles/Vol] 28.0 mmol/L 21.0-32.0 [facility] Work Phone: [phone] Globulin (S) [Mass/Vol] 3.9 g/dL 2.2-4.2 [facility] Work Phone: [phone] Urea nitrogen/Creatinine [Mass ratio] 18.7 mg/mg 10-20 [facility] Work Phone: [phone] Laboratory - Hematology and Cell countson 09-08-2021 Erythrocyte distribution width (RBC) [Entitic vol] 43.7 fL 35.1-43.9 [facility] Work Phone: [phone] Erythrocyte distribution width (RBC) [Ratio] 12.9 % 11.6-14.6 [facility] Work Phone: [phone] Immature granulocytes/100 WBC (Bld) 0.700 % 0.0-0.9 [facility] Work Phone: [phone] Comment on above: IG% - Immature Granu locytes (promyelocytes, myelocytes and metamyelocytes) > 1% indicates that a LEFT SHIFT is Present. MCH (RBC) [Entitic mass] 29.8 pg 27.0-32.0 [facility] Work Phone: [phone] Nucleated RBC/100 WBC (Bld) [Ratio] 0 % 0-5 [facility] Work Phone: [phone] MCHC Auto (RBC) [Mass/Vol]on 09-08-2021 MCHC (RBC) [Mass/Vol] 32.2 g/dL 32-36 [facility] Work Phone: No Panel Informationon 09-08 Estimated Creatinine Clearance Calc 43.74 ml/min [facility] Work Phone: [phone] Estimated GFR (MDRD) Amer 74 mL/min >60 [facility] Work Phone: [phone] Comment on above: GFR Calc Estimated GFR (MDRD) Non-Af Amer 61 mL/min >60 [facility] Work Phone: [phone] Comment on above: Non- GFR Calc Platelets bldon 09-08-2021 Platelets (Bld) [#/Vol] 267 10*3/uL 150-450 [facility] Work Phone: [phone] Serum or plasma albumin betsy urement (mass/volume)on 09-08-2021 Albumin [Mass/Vol] 3.3 g/dL 3.2-5.0 [facility] Work Phone: Serum or plasma albumin/glob ulin mass ratioon 09-08-2021 Albumin/Globulin [Mass ratio] 0.8 {ratio} 0.9-2.4 [facility] Work Phone: Serum or plasma calcium betsy urement (mass/volume)on 09-08-2021 Calcium [Mass/Vol] 9.1 mg/dL 8.5-10.1 [facility] Work Phone: [phone] Serum or plasma creatinine m easurement (mass/volume)on 09-08-2021 Creatinine [Mass/Vol] 0.96 mg/dL 0.55-1.02 [facility] Work Phone: Comment on above: The validity of the calculated GFR & GFRAA in patients over 70 years has not been determined. Clinical correlation is essential. Serum or plasma urea nitroge n measurement (mass/volume)on 09-08-2021 Urea nitrogen [Mass/Vol] 18 mg/dL 7-18 [facility] Work Phone: Thin prep Papanicolaou smear with manual screeningon 09-08-2021 Thin prep Papanicolaou smear with manual screening 20 U/L 15-37 [facility] Work Phone: Thin prep Papanicolaou smear with manual screening 7 5-15 [facility] Work Phone: Glucose Glucometer (BldC) [M ass/Vol]on 09-05-2021 Glucose [Mass/Vol] 201 mg/dL 74-106 [facility] Work Phone: Comment on above: MANAGEMENT OF PATIEN T CARE PER NURSING PROTOCOL Basophil percentageon 2021 Chloride [Moles/Vol] 103 mmol/L 98-107 [facility] Work Phone: [phone] Glucose [Mass/Vol] 160 mg/dL 74-106 [facility] Work Phone: [phone] Comment on above: Fasting Glucose resu lt greater than or equal to 126 mg/dL suggests DIABETES MELLITUS per A.D.A. criteria. Potassium [Moles/Vol] 4.0 mmol/L 3.5-5.1 [facility] Work Phone: Sodium [Moles/Vol] 136 mmol/L 136-[facility] Work Phone: WBC (Bld) [#/Vol] 12.7 10*3/uL 4.4-11.0 [facility] Work Phone: Blood erythrocytes count (nu mber/volume)on 08-28-2021 RBC (Bld) [#/Vol] 4.62 10*6/uL 4.2-5.4 [facility] Work Phone: Blood hemoglobin measurement (mass/volume)on 08-28-2021 Hemoglobin (Bld) [Mass/Vol] 13.7 g/dL 12.0-15.0 [facility] Work Phone: Blood platelet mean volumeon 08-28-2021 Platelet mean volume (Bld) [Entitic vol] 10.9 fL 6.2-12.0 [facility] Work Phone: Determination of erythrocyte mean corpuscular volume (MCV)on 08-28-2021 MCV (RBC) [Entitic vol] 92.0 fL 81-99 [facility] Work Phone: Hematocrit Auto (Bld) [Volum e fraction]on 08-28-2021 Hematocrit (Bld) [Volume fraction] 42.5 % 37-47 [facility] Work Phone: INR in Blood by Coagulation assayon 08-28-2021 INR Coag (Bld) [Relative time] 1.0 {INR} [facility] Work Phone: Laboratory - Chemistry and C hemistry - challengeon 08-28-2021 CO2 [Moles/Vol] 28.0 mmol/L 21.0-32.0 [facility] Work Phone: Urea nitrogen/Creatinine [Mass ratio] 23.6 mg/mg 10-20 [facility] Work Phone: Laboratory - Coagulationon 0 08-28-2021 aPTT Coag (Bld) [Time] 25.4 s 24.1-36.2 [facility] [place]: PT Coag (PPP) [Time] 13.0 s 11.7-14.9 os [facility] Work Phone: Laboratory - Hematology and Cell countson 08-28-2021 Erythrocyte distribution width (RBC) [Entitic vol] 43.4 fL 35.1-43.9 [facility] Work Phone: [phone] Erythrocyte distribution width (RBC) [Ratio] 12.9 % 11.6-14.6 [facility] Work Phone: [phone] MCH (RBC) [Entitic mass] 29.7 pg 27.0-32.0 [facility] Work Phone: [phone] MCHC Auto (RBC) [Mass/Vol]on 08-28-2021 MCHC (RBC) [Mass/Vol] 32.2 g/dL 32-36 [facility] Work Phone: No Panel Informationon 08-28 Estimated GFR (MDRD) Amer 91 mL/min >60 [facility] Work Phone: Comment on above: GFR Calc Estimated GFR (MDRD) Non-Af Amer 75 mL/min >60 [facility] Work Phone: Comment on above: Non- GFR Calc Platelets bldon 08-28-2021 Platelets (Bld) [#/Vol] 299 10*3/uL 150-450 [facility] Work Phone: [phone] Serum or plasma calcium betsy urement (mass/volume)on 08-28-2021 Calcium [Mass/Vol] 9.1 mg/dL 8.5-10.1 [facility] Work Phone: Serum or plasma creatinine m easurement (mass/volume)on 08-28-2021 Creatinine [Mass/Vol] 0.80 mg/dL 0.55-1.02 [facility] Work Phone: Comment on above: The validity of the calculated GFR & GFRAA in patients over 70 years has not been determined. Clinical correlation is essential. Serum or plasma urea nitroge n measurement (mass/volume)on 08-28-2021 Urea nitrogen [Mass/Vol] 19 mg/dL 7-18 [facility] Work Phone: Thin prep Papanicolaou smear with manual screeningon 08-28-2021 Thin prep Papanicolaou smear with manual screening 5 5-15 [facility] Work Phone: Absolute lymphocyte counton 06-07-2021 Lymphocytes Auto (Unsp spec) [#/Vol] 2.40 10*3/uL 0.83-4.51 [facility] Work Phone: Basophil percentageon 2021 Basophil percentage 0 SEEN /hpf 0-5 [facility] Work Phone: Basophils/100 WBC (Bld) 0.8 % 0-1 [facility] Work Phone: Bilirubin [Mass/Vol] 0.40 mg/dL 0.20-1.00 [facility] Work Phone: Comment on above: For patients on eltr ombopag therapy, use of Dimension Sodus TBIL is not recommended. Chloride [Moles/Vol] 101 mmol/L 98-107 [facility] Work Phone: Cholesterol [Mass/Vol] 160 mg/dL <200 [facility] Work Phone: Comment on above: <200 mg/dL Desirable 200-240 mg/dL Borderline >240 mg/dL High Risk Eosinophils/100 WBC (Bld) 2.4 % 0-5 [facility] Work Phone: Glucose [Mass/Vol] 232 mg/dL 74-106 [facility] Work Phone: Comment on above: Glucose result great er than or equal to 200 mg/dLsuggests DIABETES MELLITUS per A.D.A. criteria. Neutrophils (Bld) [#/Vol] 8.1 10*3/uL 2.0-7.7 [facility] Work Phone: Neutrophils/100 WBC (Bld) 68.3 % 47-70 [facility] Work Phone: [phone] Potassium [Moles/Vol] 4.3 mmol/L 3.5-5.1 [facility] Work Phone: [phone] Protein [Mass/Vol] 7.8 g/dL 6.4-8.2 [facility] Work Phone: [phone] Sodium [Moles/Vol] 134 mmol/L 136-145 [facility] Work Phone: [phone] Triglyceride [Mass/Vol] 186 mg/dL <199 [facility] Work Phone: [phone] Comment on above: The drugs N-Acetylcy steine and Metamizole may falsely depress this assay.Serum Triglycerides Reference Interval Normal <150 mg/dL Borderline high 150 - 199 mg/dL High 200 - 499 mg/dL Very High > or = 500 mg/dL WBC (Bld) [#/Vol] 11.9 10*3/uL 4.4-11.0 [facility] Work Phone: Bilirubin Test strip Ql (U)o n 06-07-2021 Bilirubin Ql (U) Negative Negative [facility] Work Phone: Blood erythrocytes count (nu mber/volume)on 06-07-2021 RBC (Bld) [#/Vol] 4.69 10*6/uL 4.2-5.4 [facility] Work Phone: [phone] Blood hemoglobin measurement (mass/volume)on 06-07-2021 Hemoglobin (Bld) [Mass/Vol] 13.9 g/dL 12.0-15.0 [facility] Work Phone: Blood lymphocytes/100 leukoc yteson 06-07-2021 Lymphocytes/100 WBC (Bld) 20.2 % 19-41 [facility] Work Phone: [phone] Blood monocytes/100 leukocyt eson 06-07-2021 Monocytes/100 WBC (Bld) 7.0 % 0-10 [facility] Work Phone: [phone] Blood platelet mean volumeon 06-07-2021 Platelet mean volume (Bld) [Entitic vol] 11.0 fL 6.2-12.0 [facility] Work Phone: [phone] Determination of erythrocyte mean corpuscular volume (MCV)on 06-07-2021 MCV (RBC) [Entitic vol] 93.4 fL 81-99 [facility] Work Phone: [phone] Hematocrit Auto (Bld) [Volum e fraction]on 06-07-2021 Hematocrit (Bld) [Volume fraction] 43.8 % 37-47 [facility] Work Phone: [phone] Ketones Test strip Ql (U)on 06-07-2021 Ketones Ql (U) Negative Negative [facility] Work Phone: Laboratory - Chemistry and C hemistry - challengeon 06-07-2021 ALP [Catalytic activity/Vol] 122 U/L 45-117 [facility] Work Phone: [phone] ALT [Catalytic activity/Vol] 33 U/L 13-56 [facility] Work Phone: [phone] CO2 [Moles/Vol] 27.0 mmol/L 21.0-32.0 [facility] Work Phone: Free T4 [Mass/Vol] 0.79 ng/dL 0.76-1.46 [facility] Work Phone: [phone] Globulin (S) [Mass/Vol] 4.2 g/dL 2.2-4.2 [facility] Work Phone: [phone] Magnesium [Mass/Vol] 2.1 mg/dL 1.6-2.6 [facility] Work Phone: [phone] Urea nitrogen/Creatinine [Mass ratio] 21.3 mg/mg 10-20 [facility] Work Phone: [phone] Laboratory - Hematology and Cell countson 06-07-2021 Erythrocyte distribution width (RBC) [Entitic vol] 45.1 fL 35.1-43.9 [facility] Work Phone: [phone] Erythrocyte distribution width (RBC) [Ratio] 13.2 % 11.6-14.6 [facility] Work Phone: [phone] Immature granulocytes/100 WBC (Bld) 1.300 % 0.0-0.9 [facility] Work Phone: [phone] Comment on above: IG% - Immature Granu locytes (promyelocytes, myelocytes and metamyelocytes) > 1% indicates that a LEFT SHIFT is Present. MCH (RBC) [Entitic mass] 29.6 pg 27.0-32.0 [facility] Work Phone: [phone] Nucleated RBC/100 WBC (Bld) [Ratio] 0 % 0-5 [facility] Work Phone: [phone] HbA1c (Bld) [Mass fraction] 8.4 % 4.2-6.3 [facility] Work Phone: [phone] MCHC Auto (RBC) [Mass/Vol]on 06-07-2021 MCHC (RBC) [Mass/Vol] 31.7 g/dL 32-36 [facility] Work Phone: [phone] Mucus LM Ql (Urine sed)on Mucus Ql (Urine sed) 0 SEEN /hpf [facility] Work Phone: [phone] Nitrite Test strip Ql (U)on 06-07-2021 Nitrite Ql (U) Negative Negative [facility] Work Phone: [phone] Panel Informationon 06-07 Estimated GFR (MDRD) Amer 76 mL/min >60 [facility] Work Phone: [phone] Comment on above: GFR Calc Estimated GFR (MDRD) Non-Af Amer 63 mL/min >60 [facility] Work Phone: [phone] Comment on above: Non- GFR Calc Free Triiodothyronine (T3) pg/dL 2.8 pg/mL 2.18-3.98 [facility] Work Phone: [phone] Thyroid Stimulating Hormone (TSH) 10.30 uIU/mL 0.358-3.74 [facility] Work Phone: [phone] Vitamin D 25-Hydroxy 18.1 ng/mL [facility] Work Phone: Comment on above: Vitamin D 25(OH) Sta tus Range Deficiency <20 ng/mL (50nmol/L) Insufficiency 20 - 30 ng/mL (50 - 75 nmol/L) Sufficiency 30 - 100 ng/mL (75 - 250 nmol/L) Toxicity >100 ng/mL (>250 nmol/L) Platelets bldon 06-07-2021 Platelets (Bld) [#/Vol] 332 10*3/uL 150-450 [facility] Work Phone: Protein Test strip Ql (U)on 06-07-2021 Protein Ql (U) Negative Negative [facility] Work Phone: Serum or plasma albumin betsy urement (mass/volume)on 06-07-2021 Albumin [Mass/Vol] 3.6 g/dL 3.2-5.0 [facility] Work Phone: Serum or plasma albumin/glob ulin mass ratioon 06-07-2021 Albumin/Globulin [Mass ratio] 0.9 {ratio} 0.9-2.4 [facility] Work Phone: Serum or plasma calcium betsy urement (mass/volume)on 06-07-2021 Calcium [Mass/Vol] 9.8 mg/dL 8.5-10.1 [facility] Work Phone: Serum or plasma cholesterol in HDL measurement (mass/volume)on 06-07-2021 Cholesterol in HDL [Mass/Vol] 51 mg/dL >40 [facility] Work Phone: Comment on above: The drugs N-Acetylcy steine and Metamizole may falsely depress this assay. Reference Range HDL <40 mg/dL Low HDL Cholesterol HDL >or= 60 mg/dL High HDL Cholesterol Serum or plasma cholesterol in VLDL measurement (mass/volume)on 06-07-2021 Cholesterol in VLDL [Mass/Vol] 37 mg/dL 5-40 [facility] Work Phone: [phone] Serum or plasma creatinine m easurement (mass/volume)on 06-07-2021 Creatinine [Mass/Vol] 0.94 mg/dL 0.55-1.02 [facility] Work Phone: Comment on above: The validity of the calculated GFR & GFRAA in patients over 70 years has not been determined. Clinical correlation is essential. Serum or plasma low density lipoprotein (LDL) cholesterol measurement (mass/volume)on 06-07-2021 Cholesterol in LDL [Mass/Vol] 72 mg/dL 0-130 [facility] Work Phone: Serum or plasma urea nitroge n measurement (mass/volume)on 06-07-2021 Urea nitrogen [Mass/Vol] 20 mg/dL 7-18 [facility] Work Phone: Squamous epithelial cells de tection in urine sediment by light microscopyon 06-07-2021 Epithelial cells.squamous LM Ql (Urine sed) 0 SEEN /hpf 5-10 [facility] Work Phone: Thin prep Papanicolaou smear with manual screeningon 06-07-2021 Thin prep Papanicolaou smear with manual screening 23 U/L 15-37 [facility] Work Phone: Thin prep Papanicolaou smear with manual screening 6 5-15 [facility] Work Phone: Urine blood detectionon 05-17 RBC Ql (U) Negative Negative [facility] Work Phone: RBC Ql (U) 0 SEEN /hpf 0-5 [facility] Work Phone: Urine clarityon 06-07-2021 Clarity (U) Sl. Cloudy Clear [facility] Work Phone: Urine color determinationon 06-07-2021 Color (U) Yellow Yellow [facility] Work Phone: Urine creatinine measurement (mass/volume)on 06-07-2021 Creatinine (U) [Mass/Vol] 23.70 mg/dL NO RANGE EST. [facility] Work Phone: [phone] Urine glucose detectionon Glucose Ql (U) 250 mg/dl Normal [facility] Work Phone: [phone] Urine leukocyte esterase det ection by dipstickon 06-07-2021 Leukocyte esterase Test strip Ql (U) Negative Negative [facility] Work Phone: Urine pHon 06-07-2021 pH (U) 6.5 [pH] 5.0 - 8.0 [facility] Work Phone: Urine protein measurement (m ass/volume)on 06-07-2021 Protein (U) [Mass/Vol] 6.9 mg/dL 0.0-11.8 [facility] Work Phone: Urine protein/creatinine mas s ratioon 06-07-2021 Protein/Creatinine (U) [Mass ratio] 291 mg/g CRE 0-200 [facility] Work Phone: Urine sediment bacteria coun t by microscopy (number/high power field)on 06-07-2021 Bacteria LM.HPF (Urine sed) [#/Area] 0 /[HPF] None Seen [facility] Work Phone: Urine specific gravity measu rementon 06-07-2021 Specific gravity (U) [Rel density] 1.010 1.002-1.030 [facility] Work Phone: Urobilinogen Auto test strip Ql (U)on 06-07-2021 Urobilinogen Ql (U) Normal mg/dl Normal [facility] Work Phone: Absolute lymphocyte counton 04-25-2021 Lymphocytes Auto (Unsp spec) [#/Vol] 2.40 10*3/uL 0.83-4.51 [facility] Work Phone: Basophil percentageon 2021 Basophils/100 WBC (Bld) 0.7 % 0-1 [facility] Work Phone: Chloride [Moles/Vol] 101 mmol/L 98-107 [facility] Work Phone: Eosinophils/100 WBC (Bld) 1.8 % 0-5 [facility] Work Phone: Glucose [Mass/Vol] 284 mg/dL 74-106 [facility] Work Phone: Comment on above: Glucose result great er than or equal to 200 mg/dLsuggests DIABETES MELLITUS per A.D.A. criteria. Neutrophils (Bld) [#/Vol] 9.9 10*3/uL 2.0-7.7 [facility] Work Phone: [phone] Neutrophils/100 WBC (Bld) 72.3 % 47-70 [facility] Work Phone: [phone] Potassium [Moles/Vol] 4.4 mmol/L 3.5-5.1 [facility] Work Phone: [phone] Sodium [Moles/Vol] 136 mmol/L 136-145 [facility] Work Phone: [phone] WBC (Bld) [#/Vol] 13.6 10*3/uL 4.4-11.0 [facility] Work Phone: [phone] Blood erythrocytes count (nu mber/volume)on 04-25-2021 RBC (Bld) [#/Vol] 4.88 10*6/uL 4.2-5.4 [facility] Work Phone: [phone] Blood hemoglobin measurement (mass/volume)on 04-25-2021 Hemoglobin (Bld) [Mass/Vol] 14.9 g/dL 12.0-15.0 [facility] Work Phone: [phone] Blood lymphocytes/100 leukoc yteson 04-25-2021 Lymphocytes/100 WBC (Bld) 17.6 % 19-41 [facility] Work Phone: [phone] Blood monocytes/100 leukocyt eson 04-25-2021 Monocytes/100 WBC (Bld) 6.2 % 0-10 [facility] Work Phone: [phone] Blood platelet mean volumeon 04-25-2021 Platelet mean volume (Bld) [Entitic vol] 10.8 fL 6.2-12.0 [facility] Work Phone: [phone] Determination of erythrocyte mean corpuscular volume (MCV)on 04-25-2021 MCV (RBC) [Entitic vol] 93.0 fL 81-99 [facility] Work Phone: [phone] Hematocrit Auto (Bld) [Volum e fraction]on 04-25-2021 Hematocrit (Bld) [Volume fraction] 45.4 % 37-47 [facility] Work Phone: [phone] Laboratory - Chemistry and C hemistry - challengeon 04-25-2021 CO2 [Moles/Vol] 29.0 mmol/L 21.0-32.0 [facility] Work Phone: [phone] Natriuretic peptide B (Bld) [Mass/Vol] 53.5 pg/mL 0-100 [facility] Work Phone: [phone] Urea nitrogen/Creatinine [Mass ratio] 18.0 mg/mg 10-20 [facility] Work Phone: [phone] Laboratory - Hematology and Cell countson 04-25-2021 Erythrocyte distribution width (RBC) [Entitic vol] 44.8 fL 35.1-43.9 [facility] Work Phone: [phone] Erythrocyte distribution width (RBC) [Ratio] 13.1 % 11.6-14.6 [facility] Work Phone: [phone] Immature granulocytes/100 WBC (Bld) 1.400 % 0.0-0.9 [facility] Work Phone: [phone] Comment on above: IG% - Immature Granu locytes (promyelocytes, myelocytes and metamyelocytes) > 1% indicates that a LEFT SHIFT is Present. MCH (RBC) [Entitic mass] 30.5 pg 27.0-32.0 [facility] Work Phone: [phone] Nucleated RBC/100 WBC (Bld) [Ratio] 0 % 0-5 [facility] Work Phone: [phone] MCHC Auto (RBC) [Mass/Vol]on 04-25-2021 MCHC (RBC) [Mass/Vol] 32.8 g/dL 32-36 [facility] Work Phone: [phone] No Panel Informationon 04-25 Estimated Creatinine Clearance Calc 44.67 ml/min [facility] Work Phone: [phone] Estimated GFR (MDRD) Amer 76 mL/min >60 [facility] Work Phone: Comment on above: GFR Calc Estimated GFR (MDRD) Non-Af Amer 63 mL/min >60 [facility] Work Phone: Comment on above: Non- GFR Calc Troponin I High Sensitivity 12 pg/mL 3.0-54.0 [facility] Work Phone: Comment on above: Please Note: New [place] t Units and Gender Specific Reference Ranges. For more information see Policy Stat Procedure [place] High Sensitivity Troponin (TNIH) and attachments. Platelets bldon 04-25-2021 Platelets (Bld) [#/Vol] 336 10*3/uL 150-450 [facility] Work Phone: Serum or plasma calcium betsy urement (mass/volume)on 04-25-2021 Calcium [Mass/Vol] 9.0 mg/dL 8.5-10.1 [facility] Work Phone: Serum or plasma creatinine m easurement (mass/volume)on 04-25-2021 Creatinine [Mass/Vol] 0.94 mg/dL 0.55-1.02 [facility] Work Phone: Comment on above: The validity of the calculated GFR & GFRAA in patients over 70 years has not been determined. Clinical correlation is essential. Serum or plasma urea nitroge n measurement (mass/volume)on 04-25-2021 Urea nitrogen [Mass/Vol] 17 mg/dL 7-18 [facility] Work Phone: Thin prep Papanicolaou smear with manual screeningon 04-25-2021 Thin prep Papanicolaou smear with manual screening 6 5-15 [facility] Work Phone: [facility] Note on 09-15-2016 [facility] Note Normal [facility] Patient Summary Documentson 09-15-2016 Patient Summary Documents Normal [facility] Vital Signs Date Time Vital Sign Value Performing Clinician Facility 09-07-2024 03:16-0400 Body temperature 98.3 [degF] Dr. Harish Noel MD Work Phone: [facility] 09-07-2024 03:16-0400 Diastolic blood pressure 88 mm[Hg] Dr. Harish Noel MD Work Phone: [facility] 09-07-2024 03:16-0400 Heart rate 77 /min Dr. Harish Noel MD Work Phone: [facility] 09-07-2024 03:16-0400 Respiratory rate 14 /min Dr. Harish Neol MD Work Phone: [facility] 09-07-2024 03:16-0400 SaO2% (BldA) [Mass fraction] 93 % Dr. Harish Noel MD Work Phone: [facility] 09-07-2024 03:16-0400 Systolic blood pressure 147 mm[Hg] Dr. Harish Noel MD Work Phone: [facility] 09-07-2024 00:11-0400 Body height 157.[address] Harish Noel MD Work Phone: [facility] 07-02-2024 13:00-0400 Body height 157.[address] Harish Noel MD Work Phone: [facility] 07-02-2024 13:00-0400 Body mass index (BMI) [Ratio] 41.7 kg/m2 Dr. Harish Noel MD Work Phone: [facility] 07-02-2024 13:00-0400 Body temperature 98.9 [degF] Dr. Harish Noel MD Work Phone: [facility] 07-02-2024 13:00-0400 Body weight 103.[address] Harish Noel MD Work Phone: [facility] 07-02-2024 13:00-0400 Diastolic blood pressure 70 mm[Hg] Dr. Harish Neol MD Work Phone: [facility] 07-02-2024 13:00-0400 Heart rate 66 /min Dr. Harish Noel MD Work Phone: [facility] 07-02-2024 13:00-0400 Respiratory rate 16 /min Dr. Harish Noel MD Work Phone: [facility] 07-02-2024 13:00-0400 SaO2% (BldA) [Mass fraction] 90 % Dr. Harish Noel MD Work Phone: [facility] 07-02-2024 13:00-0400 Systolic blood pressure 150 mm[Hg] Dr. Harish Noel MD Work Phone: [facility] 04-30-2024 14:50-0500 Body temperature 97.8 [degF] Dr. Harish Noel MD Work Phone: [facility] 04-30-2024 14:50-0500 Diastolic blood pressure 72 mm[Hg] Dr. Harish Noel MD Work Phone: [facility] 04-30-2024 14:50-0500 Heart rate 83 /min Dr. Harish Noel MD Work Phone: [facility] 04-30-2024 14:50-0500 Respiratory rate 16 /min Dr. Harish Noel MD Work Phone: [facility] 04-30-2024 14:50-0500 SaO2% (BldA) [Mass fraction] 96 % Dr. Harish Noel MD Work Phone: [facility] 04-30-2024 14:50-0500 Systolic blood pressure 138 mm[Hg] Dr. Harish Noel MD Work Phone: [facility] 04-30-2024 13:49-0500 Body weight 100.[address] Harish Noel MD Work Phone: [facility] 04-30-2024 01:16-0500 Body mass index (BMI) [Ratio] 40.6 kg/m2 Dr. Harish Noel MD Work Phone: [facility] 07-28-2022 12:49-0400 Body height 157.[address] Harish Noel Work Phone: [facility] 07-28-2022 12:49-0400 Body mass index (BMI) [Ratio] 40.6 kg/m2 Dr. Harish Noel Work Phone: [facility] 07-28-2022 12:49-0400 Body temperature 97.2 [degF] Dr. Harish Noel Work Phone: [facility] 07-28-2022 12:49-0400 Body weight 100.[address] Harish Noel Work Phone: [facility] 07-28-2022 12:49-0400 Diastolic blood pressure 69 mm[Hg] Dr. Harish Noel Work Phone: [facility] 07-28-2022 12:49-0400 Heart rate 78 /min Dr. Harish Noel Work Phone: [facility] 07-28-2022 12:49-0400 Respiratory rate 22 /min Dr. Harish Noel Work Phone: [facility] 07-28-2022 12:49-0400 SaO2% (BldA) [Mass fraction] 97 % Dr. Harish Noel Work Phone: [facility] 07-28-2022 12:49-0400 Systolic blood pressure 148 mm[Hg] Dr. Harish Noel Work Phone: [facility] 05-16-2022 13:10-0500 Body temperature 97.3 [degF] Dr. Harish Noel Work Phone: [facility] 05-16-2022 13:10-0500 Body weight 101.[address] Harish Noel Work Phone: [facility] 05-16-2022 13:10-0500 Diastolic blood pressure 72 mm[Hg] Dr. Harish Noel Work Phone: [facility] 05-16-2022 13:10-0500 Heart rate 88 /min Dr. Harish Noel Work Phone: [facility] 05-16-2022 13:10-0500 Respiratory rate 16 /min Dr. Harish Noel Work Phone: [facility] 05-16-2022 13:10-0500 SaO2% (BldA) [Mass fraction] 92 % Dr. Harish Noel Work Phone: [facility] 05-16-2022 13:10-0500 Systolic blood pressure 115 mm[Hg] Dr. Harish Noel Work Phone: [facility] 04-11-2022 14:31-0500 Body height 157.[address] Harish Noel Work Phone: [facility] 04-11-2022 14:31-0500 Body mass index (BMI) [Ratio] 40.6 kg/m2 Dr. Harish Noel Work Phone: [facility] 04-11-2022 14:31-0500 Body weight 100.[address] Harish Noel Work Phone: [facility] 04-11-2022 14:31-0500 Diastolic blood pressure 93 mm[Hg] Dr. Harish Noel Work Phone: [facility] 04-11-2022 14:31-0500 Heart rate 80 /min Dr. Harish Noel Work Phone: [facility] 04-11-2022 14:31-0500 Respiratory rate 18 /min Dr. Harish Noel Work Phone: [facility] 04-11-2022 14:31-0500 SaO2% (BldA) [Mass fraction] 93 % Dr. Harish Noel Work Phone: [facility] 04-11-2022 14:31-0500 Systolic blood pressure 151 mm[Hg] Dr. Harish Noel Work Phone: [facility] 01-21-2022 19:56-0500 Diastolic blood pressure 60 mm[Hg] Dr. Harish Noel Work Phone: [facility] Work Phone: 01-21-2022 19:56-0500 Heart rate 74 /min Dr. Harish Noel Work Phone: [facility] Work Phone: 01-21-2022 19:56-0500 Respiratory rate 17 /min Dr. Harish Noel Work Phone: [facility] Work Phone: 01-21-2022 19:56-0500 SaO2% (BldA) [Mass fraction] 97 % Dr. Harish Noel Work Phone: [facility] Work Phone: 01-21-2022 19:56-0500 Systolic blood pressure 162 mm[Hg] Dr. Harish Noel Work Phone: [facility] Work Phone: 01-21-2022 15:54-0500 Body height 157.[address] Harish Noel Work Phone: [facility] Work Phone: 01-21-2022 15:54-0500 Body mass index (BMI) [Ratio] 42.4 kg/m2 Dr. Harish Noel Work Phone: [facility] Work Phone: 01-21-2022 15:54-0500 Body temperature 97.4 [degF] Dr. Harish Noel Work Phone: [facility] Work Phone: 01-21-2022 15:54-0500 Body weight 105.[address] Harish Noel Work Phone: [facility] Work Phone: 01-11-2022 15:21-0400 Body height 157.[address] Harish Noel Work Phone: [facility] Work Phone: 01-11-2022 15:21-0400 Body mass index (BMI) [Ratio] 40.9 kg/m2 Dr. Harish Noel Work Phone: [facility] Work Phone: 01-11-2022 15:21-0400 Body weight 101.[address] Harish Noel Work Phone: [facility] Work Phone: 01-11-2022 15:21-0400 Diastolic blood pressure 68 mm[Hg] Dr. Harish Noel Work Phone: [facility] Work Phone: 01-11-2022 15:21-0400 Heart rate 71 /min Dr. Harish Noel Work Phone: [facility] Work Phone: 01-11-2022 15:21-0400 Respiratory rate 18 /min Dr. Harish Noel Work Phone: [facility] Work Phone: 01-11-2022 15:21-0400 Systolic blood pressure 134 mm[Hg] Dr. Harish Noel Work Phone: [facility] Work Phone: 01-08-2022 14:16-0400 Body temperature 98.1 [degF] Dr. Harish Noel Work Phone: [facility] Work Phone: 01-08-2022 14:16-0400 Body weight 100.[address] Harish Noel Work Phone: [facility] Work Phone: 01-08-2022 14:16-0400 Diastolic blood pressure 84 mm[Hg] Dr. Harish Noel Work Phone: [facility] Work Phone: 01-08-2022 14:16-0400 Heart rate 84 /min Dr. Harish Noel Work Phone: [facility] Work Phone: 01-08-2022 14:16-0400 Respiratory rate 18 /min Dr. Harish Noel Work Phone: [facility] Work Phone: 01-08-2022 14:16-0400 SaO2% (BldA) [Mass fraction] 92 % Dr. Harish Noel Work Phone: [facility] Work Phone: 01-08-2022 14:16-0400 Systolic blood pressure 136 mm[Hg] Dr. Harish Noel Work Phone: [facility] Work Phone: 11-29-2021 11:55-0400 Body temperature 98.24 [degF] POLLY PHILIPPE MD [facility] 11-29-2021 11:55-0400 Diastolic Blood Pressure NBP 62 1 POLLY PHILIPPE MD [facility] 11-29-2021 11:55-0400 Heart rate 93 /min POLLY PHILIPPE MD [facility] 11-29-2021 11:55-0400 Mean blood pressure 77 mm[Hg] POLLY PHILIPPE MD [facility] 11-29-2021 11:55-0400 Reason For Taking VItal Signs POLLY PHILIPPE MD [facility] 11-29-2021 11:55-0400 Systolic Blood Pressure NBP 112 1 POLLY PHILIPPE MD [facility] 11-29-2021 10:33-0400 Heart rate 89 /min POLLY PHILIPPE MD [facility] 11-29-2021 09:05-0400 Heart rate 101 /min POLLY PHILIPPE MD [facility] 11-29-2021 07:28-0400 Body temperature 98.6 [degF] POLLY PHILIPPE MD [facility] 11-29-2021 07:28-0400 Diastolic Blood Pressure NBP 63 1 POLLY PHILIPPE MD [facility] 11-29-2021 07:28-0400 Mean blood pressure 78 mm[Hg] POLLY PHILIPPE MD [address] [place] [address] 11-29-2021 07:28-0400 Reason For Taking VItal Signs POLLY PHILIPPE MD [address] [place] [address] 11-29-2021 07:28-0400 Respiratory rate 18 /min POLLY PHILIPPE MD [address] [place] [address] 11-29-2021 07:28-0400 Systolic Blood Pressure NBP 114 1 POLLY PHILIPPE MD [address] [place] [address] 11-29-2021 04:28-0400 Body temperature 98.6 [degF] POLLY PHILIPPE MD [address] [place] [address] 11-29-2021 04:28-0400 Diastolic Blood Pressure NBP 52 1 POLLY PHILIPPE MD [address] [place] [address] 11-29-2021 04:28-0400 Mean blood pressure 64 mm[Hg] POLLY PHILIPPE MD [facility] 11-29-2021 04:28-0400 Reason For Taking VItal Signs POLLY PHILIPPE MD [address] [place] [address] 11-29-2021 04:28-0400 Respiratory rate 18 /min POLLY PHILIPPE MD [facility] 11-29-2021 04:28-0400 Systolic Blood Pressure NBP 109 1 POLLY PHILIPPE MD [facility] 11-29-2021 00:35-0400 Respiratory rate 18 /min POLLY PHILIPPE MD [facility] 11-28-2021 03:43-0400 SaO2% (BldA) [Mass fraction] 94.9 % POLLY PHILIPPE MD [facility] 11-27-2021 23:49-0400 Heart rate 98 /min PLOLY PHILIPPE MD [facility] 11-26-2021 23:14-0400 Heart rate 84 /min POLLY PHILIPPE MD [facility] 11-26-2021 22:40-0400 SaO2% (BldA) [Mass fraction] 94.8 % POLLY PHILIPPE MD [facility] 11-26-2021 21:11-0400 SaO2% (BldA) [Mass fraction] 93.8 % POLLY PHILIPPE MD [facility] 11-26-2021 13:18-0400 Diastolic blood pressure 55 mm[Hg] POLLY PHILIPPE MD [facility] 11-26-2021 13:18-0400 Mean blood pressure 73 mm[Hg] POLLY PHILIPPE MD [facility] 11-26-2021 13:18-0400 Systolic blood pressure 113 mm[Hg] POLLY PHILIPPE MD [facility] 11-26-2021 11:24-0400 Diastolic blood pressure 58 mm[Hg] POLLY PHILIPPE MD [facility] 11-26-2021 11:24-0400 Mean blood pressure 86 mm[Hg] POLLY PHILIPPE MD [facility] 11-26-2021 11:24-0400 Systolic blood pressure 127 mm[Hg] POLLY PHILIPPE MD [facility] 11-26-2021 10:06-0400 Diastolic blood pressure 55 mm[Hg] POLLY PHILIPPE MD [facility] 11-26-2021 10:06-0400 Mean blood pressure 82 mm[Hg] POLLY PHILIPPE MD [facility] 11-26-2021 10:06-0400 Systolic blood pressure 123 mm[Hg] POLLY PHILIPPE MD [address] [place] [address] 11-26-2021 09:30-0400 Diastolic blood pressure 52 mm[Hg] POLLY PHILIPPE MD [facility] 11-26-2021 09:30-0400 Heart rate 77 /min POLLY PHILIPPE MD [facility] 11-26-2021 09:30-0400 Mean blood pressure 73 mm[Hg] POLLY PHILIPPE MD [address] [place] [address] 11-26-2021 09:30-0400 Systolic blood pressure 116 mm[Hg] POLLY PHILIPPE MD [address] [place] [address] 11-26-2021 06:29-0400 Heart rate 88 /min POLLY PHILIPPE MD [address] [place] [address] 11-25-2021 00:10-0400 Body temperature 98.42 [degF] POLLY PHILIPPE MD [address] [place] [address] 11-24-2021 20:09-0400 Body temperature 98.06 [degF] POLLY PHILIPPE MD [address] [place] [address] 11-24-2021 15:35-0400 Body temperature 98.42 [degF] POLLY PHILIPPE MD [address] [place] [address] 11-23-2021 12:45-0400 Body temperature 98.44 [degF] POLLY PHILIPPE MD [address] [place] [address] 11-23-2021 12:45-0400 Body temperature 97.88 [degF] POLLY PHILIPPE MD [address] [place] [address] 11-23-2021 12:40-0400 Body temperature 98.55 [degF] POLLY PHILIPPE MD [address] [place] [address] 11-23-2021 12:40-0400 Body temperature 97.93 [degF] POLLY PHILIPPE MD [facility] 11-23-2021 12:35-0400 Body temperature 98.56 [degF] POLLY PHILIPPE MD [address] [place] [address] 11-23-2021 12:35-0400 Body temperature 98.01 [degF] POLLY PHILIPPE MD [facility] 11-23-2021 12:11-0400 SaO2% (BldA) [Mass fraction] 97.8 % POLLY PHILIPPE MD [facility] 11-23-2021 11:29-0400 SaO2% (BldA) [Mass fraction] 99.2 % POLLY PHILIPPE MD [facility] 11-23-2021 11:00-0400 SaO2% (BldA) [Mass fraction] 99.0 % POLLY PHILIPPE MD [facility] 11-23-2021 06:01-0400 Heart rate 76 /min POLLY PHILIPPE MD [facility] 11-23-2021 05:54-0400 Body height 157.5 cm POLLY PHILIPPE MD [facility] 11-23-2021 05:54-0400 Body weight 102.3 kg POLLY PHILIPPE MD [facility] 11-23-2021 05:54-0400 Body weight 41.24 kg/m2 POLLY PHILIPPE MD [facility] 11-23-2021 05:54-0400 diastolic 105 mm[Hg] POLLY PHILIPPE MD [facility] 11-23-2021 05:54-0400 systolic 131 mm[Hg] POLLY PHILIPPE MD [facility] 11-05-2021 04:06-0400 Diastolic blood pressure 77 mm[Hg] Dr. Harish Noel Work Phone: [facility] Work Phone: 11-05-2021 04:06-0400 Heart rate 79 /min Dr. Harish Noel Work Phone: [facility] Work Phone: 11-05-2021 04:06-0400 Respiratory rate 20 /min Dr. Harish Noel Work Phone: [facility] Work Phone: 11-05-2021 04:06-0400 SaO2% (BldA) [Mass fraction] 95 % Dr. Harish Noel Work Phone: [facility] Work Phone: 11-05-2021 04:06-0400 Systolic blood pressure 159 mm[Hg] Dr. Harish Noel Work Phone: [facility] Work Phone: 11-05-2021 02:14-0400 Body height 157.[address] Harish Noel Work Phone: [facility] Work Phone: 11-05-2021 02:14-0400 Body mass index (BMI) [Ratio] 41.8 kg/m2 Dr. Harish Noel Work Phone: [facility] Work Phone: 11-05-2021 02:14-0400 Body temperature 98.1 [degF] Dr. Harish Noel Work Phone: [facility] Work Phone: 11-05-2021 02:14-0400 Body weight 103.[address] Harish Noel Work Phone: [facility] Work Phone: 09-08-2021 14:58-0400 Diastolic blood pressure 81 mm[Hg] Dr. Harish Neol Work Phone: [facility] Work Phone: 09-08-2021 14:58-0400 SaO2% (BldA) [Mass fraction] 94 % Dr. Harish Noel Work Phone: [facility] Work Phone: 09-08-2021 14:58-0400 Systolic blood pressure 157 mm[Hg] Dr. Harish Noel Work Phone: [facility] Work Phone: 09-08-2021 11:55-0400 Body height 157.[address] Harish Noel Work Phone: [facility] Work Phone: 09-08-2021 11:55-0400 Body mass index (BMI) [Ratio] 40.7 kg/m2 Dr. Harish Noel Work Phone: [facility] Work Phone: 09-08-2021 11:55-0400 Body temperature 97.1 [degF] Dr. Harish Noel Work Phone: [facility] Work Phone: 09-08-2021 11:55-0400 Body weight 101.[address] Harish Noel Work Phone: [facility] Work Phone: 09-08-2021 11:55-0400 Heart rate 101 /min Dr. Harish Noel Work Phone: [facility] Work Phone: 09-08-2021 11:55-0400 Respiratory rate 22 /min Dr. Harish Noel Work Phone: [facility] Work Phone: 09-05-2021 07:52-0400 Body height 157.[address] Harish Noel Work Phone: [facility] Work Phone: 09-05-2021 07:52-0400 Body weight 100.[address] Harish Noel Work Phone: [facility] Work Phone: 09-01-2021 12:02-0400 Body mass index (BMI) [Ratio] 40.6 kg/m2 Dr. Harish Noel Work Phone: [facility] Work Phone: 08-28-2021 09:45-0400 Body mass index (BMI) [Ratio] 40.6 kg/m2 Dr. Harish Noel Work Phone: [facility] Work Phone: 08-28-2021 09:45-0400 Body weight 100.[address] Harish Noel Work Phone: [facility] Work Phone: 08-28-2021 09:45-0400 Diastolic blood pressure 71 mm[Hg] Dr. Harish Noel Work Phone: [facility] Work Phone: 08-28-2021 09:45-0400 Heart rate 87 /min Dr. Harish Noel Work Phone: [facility] Work Phone: 08-28-2021 09:45-0400 Respiratory rate 18 /min Dr. Harish Noel Work Phone: [facility] Work Phone: 08-28-2021 09:45-0400 Systolic blood pressure 134 mm[Hg] Dr. Harish Noel Work Phone: [facility] Work Phone: 06-16-2021 15:17-0400 Body mass index (BMI) [Ratio] 41.1 kg/m2 Dr. Harish Noel Work Phone: [facility] Work Phone: 06-16-2021 15:17-0400 Body weight 102.[address] Harish Noel Work Phone: [facility] Work Phone: 06-16-2021 15:17-0400 Diastolic blood pressure 83 mm[Hg] Dr. Harish Noel Work Phone: [facility] Work Phone: 06-16-2021 15:17-0400 Heart rate 83 /min Dr. Harish Noel Work Phone: [facility] Work Phone: 06-16-2021 15:17-0400 Respiratory rate 18 /min Dr. Harish Noel Work Phone: [facility] Work Phone: 06-16-2021 15:17-0400 Systolic blood pressure 163 mm[Hg] Dr. Harish Noel Work Phone: [facility] Work Phone: 06-16-2021 15:17-0400 Body height 157.[address] Harish Noel Work Phone: [facility] Work Phone: 06-16-2021 15:17-0400 Body mass index (BMI) [Ratio] 41.1 kg/m2 Dr. Harish Noel Work Phone: [facility] Work Phone: 06-16-2021 15:17-0400 Body weight 102.[address] Harish Noel Work Phone: [facility] Work Phone: 06-16-2021 15:17-0400 Diastolic blood pressure 83 mm[Hg] Dr. Harish Noel Work Phone: [facility] Work Phone: 06-16-2021 15:17-0400 Heart rate 83 /min Dr. Harish Noel Work Phone: [facility] Work Phone: 06-16-2021 15:17-0400 Respiratory rate 18 /min Dr. Harish Noel Work Phone: [facility] Work Phone: 06-16-2021 15:17-0400 Systolic blood pressure 163 mm[Hg] Dr. Harish Noel Work Phone: [facility] Work Phone: 06-07-2021 08:26-0400 Body temperature 96.4 [degF] Dr. Harish Noel Work Phone: [facility] Work Phone: 06-07-2021 08:26-0400 Body weight 104.[address] Harish Noel Work Phone: [facility] Work Phone: 06-07-2021 08:26-0400 Diastolic blood pressure 90 mm[Hg] Dr. Harish Noel Work Phone: [facility] Work Phone: 06-07-2021 08:26-0400 Heart rate 90 /min Dr. Harish Noel Work Phone: [facility] Work Phone: 06-07-2021 08:26-0400 Respiratory rate 16 /min Dr. Harish Noel Work Phone: [facility] Work Phone: 06-07-2021 08:26-0400 Systolic blood pressure 160 mm[Hg] Dr. Harish Noel Work Phone: [facility] Work Phone: 06-07-2021 08:26-0400 Body temperature 96.4 [degF] Dr. Harish Noel Work Phone: [facility] Work Phone: 06-07-2021 08:26-0400 Body weight 104.[address] Harish Noel Work Phone: [facility] Work Phone: 06-07-2021 08:26-0400 Diastolic blood pressure 90 mm[Hg] Dr. Harish Noel Work Phone: [facility] Work Phone: 06-07-2021 08:26-0400 Heart rate 90 /min Dr. Harish Noel Work Phone: [facility] Work Phone: 06-07-2021 08:26-0400 Respiratory rate 16 /min Dr. Harish Noel Work Phone: [facility] Work Phone: 06-07-2021 08:26-0400 Systolic blood pressure 160 mm[Hg] Dr. Harish Noel Work Phone: [facility] Work Phone: 04-25-2021 14:02-0500 Diastolic blood pressure 82 mm[Hg] Dr. Harish Noel Work Phone: [facility] Work Phone: 04-25-2021 14:02-0500 Heart rate 80 /min Dr. Harish Noel Work Phone: [facility] Work Phone: 04-25-2021 14:02-0500 Respiratory rate 13 /min Dr. Harish Noel Work Phone: [facility] Work Phone: 04-25-2021 14:02-0500 SaO2% (BldA) [Mass fraction] 98 % Dr. Harish Noel Work Phone: [facility] Work Phone: 04-25-2021 14:02-0500 Systolic blood pressure 156 mm[Hg] Dr. Harish Noel Work Phone: [facility] Work Phone: 04-25-2021 10:28-0500 Body mass index (BMI) [Ratio] 41.1 kg/m2 Dr. Harish Noel Work Phone: [facility] Work Phone: 04-25-2021 10:28-0500 Body temperature 96.1 [degF] Dr. Harish Noel Work Phone: [facility] Work Phone: 04-25-2021 10:28-0500 Body weight 102.[address] Harish Noel Work Phone: [facility] Work Phone: Encounters Encounter Date Encounter Type Care Provider Facility Start: 09-07-2024 Evaluation and management of inpatient Dr. Polly Lomeli DO [facility] Work Phone: Start: 09-07-[address] Ida Noel MD Work Phone: [facility] Work Phone: Start: 07-16-2024 End: 07-16-[address] Harish Noel MD Work Phone: [facility] Work Phone: Start: 07-16-2024 End: 07-16-[address] Harish Noel MD -Laboratory Work Phone: Start: 07-16-2024 End: 07-16-2024 ambulatory [facility] Facility:[facility] Start: 07-02-2024 End: 07-02-[address] Harish Noel MD -[facility] Work Phone: Start: 07-02-2024 End: 07-02-2024 [facility] Start: 04-30-2024 Non-patient / Non-visit Dr. Nathan smith [facility] Work Phone: Start: 04-30-2024 Non-patient / Non-visit Dr. Lianne Cruz MD -[facility] Start: 04-29-2024 End: 04-29-2024 ambulatory [facility] Facility:[facility] Start: 04-29-2024 End: 04-29-2024 Non-patient / Non-visit Dr. Delgado Cruz MD -[facility] Work Phone: Start: 04-29-2024 End: 04-30-2024 ambulatory Harishsebastián LairdBert Facility:[facility] Start: 04-29-2024 End: 04-30-2024 Evaluation and management of inpatient Dr. Nathan Torres -Progressive Care Unit Work Phone: Start: 01-16-2024 End: 01-17-2024 ambulatory Harish Noel Facility:[facility] Start: 01-15-2024 End: 01-15-2024 Emergency department patient visit Harish Noel Facility:[facility] Start: 09-03-2023 End: 09-03-2023 Emergency department patient visit Harish Noel Facility:[facility] Start: 09-02-2023 End: 09-02-2023 Emergency department patient visit Harish Noel Facility:[facility] Start: 08-05-2023 End: 08-05-2023 ambulatory Harishsebastián Noel Facility:[facility] Start: 07-28-2022 End: 07-28-2022 Emergency department patient visit Dr. Harish Noel Work Phone: [facility]Emergency Department Start: 06-11-2022 End: 06-11-[address] Harish Noel Work Phone: [facility] Work Phone: Start: 06-11-2022 End: 06-11-[address] Harish Noel Work Phone: [facility]Laboratory Start: 05-16-2022 End: 05-16-[address] Harish Noel Work Phone: [facility] Start: 04-11-2022 End: 04-11-[address] Harish Noel Work Phone: [facility] Start: 01-21-2022 End: 01-21-2022 Emergency department patient visit Dr. Harish Noel Work Phone: [facility]Emergency [facility] Start: 01-15-2022 Non-patient / Non-visit Dr. Madison Noel Work Phone: [facility] Internal Medicine Start: 01-11-2022 End: 01-11-[address] Harish Noel Work Phone: [facility] Work Phone: Start: 01-11-2022 End: 01-11-[address] Harish Noel Work Phone: [facility]Labor[facility] Start: 01-11-2022 End: 01-11-[address] Harish Noel Work Phone: [facility] Start: 01-08-2022 End: 01-08-[address] Harish Noel Work Phone: [facility] Med [facility] Start: 12-27-2021 End: 12-28-2021 ambulatory MS. JUAN JUAREZ PORTABLE MACHINE SANDER Facility:A Start: 12-27-2021 End: 12-27-2021 Patient encounter procedure JUAN JUAREZ PAYMENT ANALYST-PORTABLE MACHINE SANDER [facility] Start: 12-13-2021 End: 12-14-2021 ambulatory MS. 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 Madison Noel Work Phone: [facility] Start: 11-23-2021 End: 11-29-2021 Evaluation and management of inpatient POLLY PHILIPPE MD Facility:A Start: 11-23-2021 End: 11-29-2021 Evaluation and management of inpatient POLLY PHILIPPE MD [facility] Start: 11-17-2021 End: 11-18-2021 ambulatory POLLY PHILIPPE MD Facility:B Start: 11-17-2021 End: 11-17-2021 Patient encounter procedure POLLY PHILIPPE MD [facility] Start: 11-05-2021 End: 11-05-2021 Emergency department patient visit Dr. Harish Noel Work Phone: [facility]Emergency Department Start: 10-31-2021 End: 11-01-2021 ambulatory POLLY PHILIPPE MD Facility:A Start: 10-31-2021 End: 11-01-2021 ambulatory POLLY PHILIPPE MD Facility:A Start: 10-11-2021 End: 10-11-2021 Emergency department patient visit HARISH NOEL MD. Facility:A Start: 09-08-2021 End: 09-08-2021 Emergency department patient visit Dr. Harish Noel Work Phone: [facility]gency [facility] Start: 09-05-2021 Non-patient / Non-visit Dr. Madison Noel Work Phone: [facility] Start: 09-05-2021 End: 09-05-2021 Admission to same day surgery center Dr. Harish Noel Work Phone: [facility]/Special Procedures Start: 09-04-2021 Non-patient / Non-visit Dr. Madison Noel Work Phone: [facility] Start: 08-28-2021 End: 08-28-[address] Harish Noel Work Phone: [facility] Start: 07-25-2021 Non-patient / Non-visit Dr. Madison Noel Work Phone: [facility] Start: 07-24-2021 End: 07-24-[address] Harish Noel Work Phone: [facility]-Pulmonary Services/Neurology Start: 07-21-2021 Non-patient / Non-visit Dr. Madison Noel Work Phone: [facility] Start: 07-21-2021 End: 07-21-[address] Harish Noel Work Phone: [facility]-Cardiovascula r Services Start: 06-16-2021 End: 06-16-[address] Harish Noel Work Phone: [facility] Start: 06-07-2021 End: 06-07-[address] Harish Noel Work Phone: [facility]-Laboratory, [facility] Start: 06-07-2021 End: 06-07-[address] Harish Noel Work Phone: [facility] Internal Medicine Start: 04-25-2021 End: 04-25-2021 Emergency department patient visit Dr. Harish Noel Work Phone: [facility]Emergency Department Start: 09-15-2016 End: 09-15-2016 Emergency department patient visit VON Song NHRENATE Facility:[facility] Procedures Date Procedure Procedure Detail Performing Clinician Start: 09-07-2024 X-ray of chest, PA and lateral views Dr. Harish Noel MD Work Phone: Start: 09-07-2024 D-dimer assay, quantitative Dr. Harish ball MD Work Phone: Comment on above: NORMAL D-Dimer level (<0.50) indicates n o DVT or PE. NORMAL D-Dimer level (<0.50) indicates no DVT or PE. Start: 07-16-2024 Vitamin D, 25-hydroxy measurement Dr. Madison Noel MD Work Phone: Comment on above: Vitamin D StatusDeficiency: <20 ng/mL (5 0nmol/L)Insufficiency: 20-30 ng/mL (50-75 nmol/L)Sufficiency: 30-100 ng/mL (75-250 nmol/L)Toxicity: >100 ng/mL (>250 nmol/L) Start: 04-30-2024 Cardiovascular stress test using pharmacologic [...] above: CABG x2- ADAN-LAD, SVG-OM 1 @ [facility] Dr. 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 Harish Noel MD Work Phone: Hysterectomy POLLY PHIILPPE MD Viral antigen assay Dr. Ida Noel Work Phone: Plan of Treatment Date Care Activity Detail Author Start: 09-07-2024 Verification routine [facility] Start: 09-07-2024 Admission procedure [facility] Start: 09-07-2024 Hospital admission, emergency, from emergency room, medical nature [facility] Start: 09-07-2024 [facility] Start: 07-02-2024 Patient referral [facility] Work Phone: Start: 04-30-2024 Patient discharge [facility] Start: 04-30-[address] [facility] Start: 04-29-2024 Following clinical p athway protocol [facility] Start: 04-29-2024 Assessment of risk o f venous thromboembolism [facility] Start: 04-29-[address] [facility] Start: 04-29-[address] [facility] Start: 04-29-2024 Incentive spirometry [facility] Start: 04-29-2024 Insertion of cathete r into peripheral vein [facility] Start: 04-29-2024 Me[address]uring intake and output [facility] Start: 04-29-[address] [facility] Start: 04-29-[address] [facility] Start: 04-29-2024 Providing care accor ding to standard [facility] Start: 04-29-2024 Provision of activity privileges [facility] Start: 04-29-2024 Referral to service [facility] Start: 04-29-2024 End: 04-29-2024 [facility] Start: 04-29-2024 Admission procedure [facility] Start: 04-29-2024 Patient referral to dietitian [facility] Start: 05-16-2022 Patient referral [facility] Work Phone: Start: 04-11-2022 Patient referral [facility] Work Phone: Start: 11-05-2021 [facility] Work Phone: Start: 09-08-2021 [facility] Work Phone: Magnesium measurement [facility] Patient Education [facility] Work Phone: Patient referral [facility] Work Phone: Payers Date Payer Category Payer Unknown [id number] 2023 Self-pay [id number] 2021 Medicare [id number] [employer] / [employer] [id number] 2016 Medicaid [id number] 1950 Unknown [id number] 2.16.8 [id number] 1950 Unknown [id number] 2.16.8 [id number] 1950 Unknown [id number] 2.16.8 40.1.995725.3.579.2.627 1950 Unknown [id number] 2.16.8 40.1.785086.3.579.2.627 1950 Unknown [id number] 2.16.8 40.1.274568.3.579.2.627 1950 Unknown [id number] 2.16.8 40.1.922500.3.579.2.627 1950 Unknown [id number] 2.16.8 40.1.919836.3.579.2.627 Unknown [id number] 2.16.8 40.1.999932.3.579.2.462 Unknown [id number] 2.16.8 40.1.961914.3.579.2.462 Unknown [id number] 2.16.8 40.1.907906.3.579.2.462 Unknown [id number] 2.16.8 40.1.103471.3.579.2.462 Unknown [id number] 2.16.8 40.1.687897.3.579.2.462 Unknown [id number] 2.16.8 40.1.187194.3.579.2.462 Unknown [id number] 2.16.8 40.1.149609.3.579.2.462 Unknown [id number] 2.16.8 40.1.637666.3.579.2.462 Unknown [id number] 2.16.8 40.1.556831.3.579.2.462 Unknown [id number] 2.16.8 40.1.962827.3.579.2.462 Unknown [id number] 2.16.8 40.1.141239.3.579.2.462 Unknown [id number] 2.16.8 40.1.857677.3.579.2.462 Unknown [id number] 2.16.8 40.1.480058.3.579.2.462 Social History Date Type Detail Facility Start: 06-16-2021 End: 07-28-2022 Tobacco smoking status NHIS Unknown if ever smoked [facility] Start: 07-05-2020 Non-smoker [facility] Start: 1950 Sex Assigned At Female A [facility] Start: 10-31-2021 End: 09-07-2024 Tobacco smoking status Ex-smoker (finding) [facility] Comment on above: Quit in 2016 Start: 07-22-2024 Sex Female (finding) [facility] Goals Date Patient Goal Desired Activity /State Functional Status Date Assessment Result Facility 04-30-2024 Functional status Ambulates;Bathroom Priv ilege [facility] Work Phone: 11-29-2021 Functional Status Supervised 1 [facility] 11-29-2021 Functional Status COVID 19 Surge in Effec t Yes [facility] 11-28-2021 Functional Status Ambulation in [facility] 11-28-2021 Functional Status [facility] 11-28-2021 Functional Status Mod I [facility] 11-28-2021 Functional Status Supervised 12 [facility] 11-28-2021 Functional Status Bath cloths, Shampoo/Body wash (no rinse) [facility] 11-27-2021 Functional Status [facility] 11-27-2021 Functional Status [facility] 11-27-2021 Functional Status Done [facility] 11-27-2021 Functional Status bilateral knee [facility] 11-27-2021 Functional Status [facility] 11-26-2021 Functional Status [facility] 11-25-2021 Functional Status No falls in th e last 6 months, per pt. [facility] 11-25-2021 Functional Status [facility] 11-25-2021 Functional Status [facility] 11-25-2021 Functional Status SCD On/Re-appl ied bilateral knee high [facility] 11-25-2021 Functional Status [facility] 11-25-2021 Functional Status [facility] 11-24-2021 Functional Status preventative foam dress ing [facility] 11-24-2021 Functional Status 100 [facility] 11-24-2021 Functional Status Apartment, Single level home [facility] 11-23-2021 Functional Status [facility] 11-23-2021 Functional Status Special Call D tani Unable to use call device [facility] 11-23-2021 Functional Status [facility] 11-23-2021 Functional Status [facility] 11-23-2021 Functional Status Sensory Deficits None A [facility] Mental Status Date Assessment Result Facility 09-07-2024 Cognitive function Voice/Name [facility] Work Phone: 04-30-2024 Cognitive function Voice/Name [facility] Work Phone: 11-29-2021 Mental Status Oriented x 4 [facility] 11-29-2021 Mental Status [facility] 11-28-2021 Mental Status [facility] 11-05-2021 Cognitive function Voice/Name [facility] Work Phone: 09-08-2021 Cognitive function Level Of Cons ciousness Awake;Alert;Appropriate;Follow s Commands [facility] Work Phone: 04-25-2021 Cognitive function Voice/Name [facility] Work Phone: Clinical Notes 03-18-2016 to 09-07-2024 Note Date & Type Note Facility 09-07-[address] [facility] 09-07-2024 Radiology Diagnostic study note [facility] Imaging Services [address] [place] [address] Chest PA and Lateral MR#: [id number] Acct: [id number] Name: FELICITAS ALCANTARA Rep #: [id number] : 1950 F 73 From: Manuel Mckeon MD PCP: Dr. Harish Noel MD Status: REG ER Study:Chest PA and Lateral Date of Exam: 09/07/24 Exam# [id number] Ordering Dr: Masoud Hamilton DO PROCEDURE: CHEST PA AND LATERAL 09/07/2024 REASON FOR EXAM: CHEST PAIN TECHNIQUE: CHEST PA AND LATERAL COMPARISON: 04/29/2024. FINDINGS: Unremarkable median sternotomy wires. The lungs are expanded. There is no demonstrated parenchymal abnormality. There is no demonstrated pleural abnormality. Enlarged cardiac silhouette. Normal mediastinum and yris. Normal visualized pulmonary arteries. Atheromatous plaques of the visualized aortic arch and descending thoracic aorta. Diffuse spondylosis of the visualized thoracic spine. Normal visualized ribs, clavicles. Degenerative joint disease. There is no demonstrated abnormality of the visualized soft tissue structures ofthe upper abdomen. RAD/Chest PA and Lateral IMPRESSION: No evidence for acute abnormality. Reading [facility] CC: Dr. Masoud Ospina DO; Dr. 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 07-02-2024 Evaluation note Diagnosis Onset Date Resolution Fatigue acute July 02 12:52pm Atherosclerotic heart disease of [place] coronary artery without angina pectoris chronic July 02, 2024 12:52pm Essential hypertension chronic July 02, 2024 12:52pm Hyperlipemia chronic July 02, 2024 12:52pm Hypothyroidism chronic June 12:52pm Type 2 diabetes mellitus chronic July 02, 2024 12:52pm Chest pain noneactive July 02 12:52pm Chest pain acute September 07 3:58am History of left heart catheterization (LHC) August, acute September 07, 2024 3:58am Leukocytosis acute September 07, 2 025 3:58am Morbid obesity with BMI of 40.0-44.9, adult acute September 07, 2024 3:58am Presence of stent in coronary artery March, acute September 07, 2024 3:58am Coronary artery disease chronic September 07, 2024 3:58am Hypertension chronic September 07, 2 025 3:58am [facility] Work Phone: 1(803) 784-681602-13-2025 [facility] Medical Records Department [address] [place] [address] Discharge Summary 04/30/24 1446 MR#: [id number] Acct: [id number] Name: FELICITAS ALCANTARA Rep #: [id number] : 1950 73 From: Nathan Torres DO PCP: Dr. Harish Noel MD Status:ADM RUBINA Location: [place] [address] Providers Date of Admission: 04/29/24 Primary Care [...] 79.6 H, Lymph % (Auto) 12.1 L, [place] % (Auto) 4.9, Eos % (Auto) 2.3, Baso % (Auto) 0.5, Absolute Neuts (auto) 11.7 H, Absolute Lymphs (auto) 1.79, Nucleated RBC % 0, D- Dimer Quant (PE/DVT) < 0.27 L, Sodium 136, [...] Clarity Clear, Urine pH 8.0, Ur Specific [place] 1.010, Urine Protein Negative, Urine Glucose (UA) [...] 90.6 H, Lymph % (Auto) 7.1 L, [place] % (Auto) 0.5, Eos % (Auto) 0.0, [...] cardiomegaly. Otherwise unremarkable chest radiograph. Reading Location: [id number] D/C Instructions Discharge Diet: 2000 Calorie Control [...] reason for non-treat (more content not included)... [facility]-2025 Evaluation note* Diagnosis Onset Date Resolution Status Admit Date Leukocytosis acute April 8:28pm Asthmatic bronchitis resolved 2024 8:28pm Chest pain resolved April 29, 2024 8:28pm [place] (dyspnea on exertion) resolved April 29, 2024 8:28pm Hypertensive urgency resolved 2024 8:28pm History of coronary artery bypass surgery November, inactive April 29, 025 8:28pm History of left heart catheterization (LHC) August, inactive April 182024 8:28pm History of non-ST elevation myocardial infarction (NSTEMI) inactive April 29 025 8:28pm Morbid obesity with BMI of 40.0-44.9, adult inactive April 29, 2024 8:28pm Presence of stent in coronary artery March, inactive April 29 8:28pm Fatigue acute July 02 12:52pm Atherosclerotic heart disease of [place] coronary artery without angina pectoris chronic July 02, 2024 12:52pm Essential hypertension chronic Ap 2024 12:52pm Hyperlipemia chronic July 02, 2024 12:52pm Hypothyroidism chronic June 12:52pm Type 2 diabetes mellitus chronic July 02, 2024 12:52pm Chest pain noneactive July 02 12:52pm [facility] Work Phone: 1(988) 856-716611-06-2022 Hospital Discharge instructions Additional Instructions 2 puffs of albuterol metered-dose inhaler every 4-6 hours for shortness of breath or wheezing.[facility] Work Phone: 1(339) 197-860910-13-2022 Note ORIGINAL EXAMINATION: TWO XRAY VIEWS OF [...] Sign Date: 12/28/2021 12:02:56 AM Ordering Provider: [facility]10-12-2022 Note ORIGINAL EXAMINATION: TWO XRAY VIEWS [...] Sign Date: 12/28/2021 12:02:56 AM Ordering Provider: [facility]09-16-2022 Evaluation + Plan note Future Scheduled Tests Laboratory* Basic Metabolic Panel 12/01/21 Radiology* XR Chest 2 Views (PA & Lateral) 12/19/21 [facility] 09-15-2022 Note ORIGINAL EXAMINATION: TWO XRAY VIEWS [...] 11/30/2021 12:35:45 AM Ordering Provider: NAT DUNN [id number] Note Discharge Instructions Thank you for allowing [facility] to assist you with your healthcare needs. The following is importantdischarge information regarding your hospital visit. Your Care Team HARISH NOEL MD Your Diagnosis CAD IN [place] BAND ARTERY s/p PCI 2015; s/p CABG x2 [...] Op 12/05/2021 10:00 AM EDT JUAN JUAREZ [facility] Follow Up Appointments Follow Up with JUAN JUAREZ When 12/05/2021 10:00 AM EDT Why: This will be with Dr. Philippe's nurse practitioner. Please present to [facility] radiology department 1 hour prior to this visit for chest x-ray. Chest padmini will be removed at this visit. Where: [address] [facility] [place] [address]- Follow Up with Discharge to [facility] LOC [phone] When Within 1-2 days Follow Up with GAGE CHIRINOS MD, [facility] When Why: Please call rianna for follow-up appointment in 4-6 weeks (re: diabetes), can schedule at [place] office. Bring blood glucose meter with you to your appointment. Where: [address], [place] [address] [phone] Follow Up with SAQIB FRASER MD, [facility], [facility] When Within 1-2 days Why: Please call to arrange a hospital follow-up and possible trial void. Where: [address] [facility] [address] [facility] [place] [address] [phone] Follow Up with HARISH NOEL MD When Within 1-2 days Why: Please call to arrange a hospital follow-up. Where: [address] [facility] [address] [place] [address]- [phone] Follow Up with free When Why: Follow up with primary care to have a Sleep Study ordered Where: Follow Up with Cardiac Rehab When Why: The Cardiac Rehab department will call you in 6 weeks to schedule you for phase 2. Informationgiven about cardiac rehab. If you have any questions please call [phone]. Where: [address] [place] [address] [place] [address]- The Following Activity and Diet Have Been [...] follow-up within: 1 week, Results Notify to: PLOLY PHILIPPE MD, Please present to [facility] 1 hour prior to office [...] for every person. A diet and nutrition consultant (registered dietitian) can help you make a [...] 15 g of carbohydrates: hamburger bun or Cape Verdean muffin. oz (15 mL) syrup. oz (14 [...] Identify the foods that contain carbohydrates: Rice. [place]. Milk. Strawberries. 2. Calculate how many servings [...] manage your diabetes. A diet and nutrition consultant (registered dietitian) can help you make a meal plan and calculate how many carbohydrates you should have at each meal and snack. This information is not intended to replace advice given to you by your health care provider. Make sure you discuss any questions you have with your health care provider. Document Released: 03/04/2006 Document Revised: 09/26/2017 Document Reviewed: 08/15/2016 [employer] Patient Education 2020 [employer] OPEN HEART SURGERY (Bypass or Valve [...] diet and you may take a mild foak-wwo-rfkhhbn laxative like Milk of Magnesia . CARDIAC [...] call your surgeon or your heart doctor. [facility] also has a free stop smoking program called Give it Up and if you want to attend, pleasecall [phone] ([phone]). Call the Surgeon If your incisions are [...] in your calf. Call the Heart Doctor (Metaphysician) If your heart beats are irregular or [...] to receive it can visit one of [facility] vaccine clinics. There are many vaccine clinic locations within the [facility]. For locations and available times, please visit https://[email or web address].[place].gov/. It is important to note that some COVID mobile vaccine clinics are held outdoors and may be canceled in rainy or stormy conditions. To learn more about pediatric vaccinations (ages 5-11), we invite you to visit the [facility] webpage. https://www.[facility].org/pages/8331-Xqxdp-Hgwweazfgah-Btsfreswbu-Zepds-Ave stions.htmlTo learn more about the COVID-19 vaccine, we invite you to visit the [employer] website for a list of frequently asked questions. [email or web address]-[email or web address]-Rjavqqgi/rhgij-Kradykp-Yoyxiesvgn _Asked-Questions.pdf [facility] [employer] Patient Portal Access Instructions: Stay connected with your healthcare team and access your personal medical information anytime with the [facility] Patient Portal.If you would like a full copy of your medical records, please contact the [facility] Medical Records Department, Saturday through Saturday between 8a.m. and 4:30p.m. Please follow the directions below to access the portal: 1.Access the email account you provided upon registration to the [facility].2.Look for an invitation email from [facility].3.Open the email and access the invitation link: Accept [facility]itation to [facility]4.Fill in the required singer to create your account. Sign into [email or web address] with your username and password that you [...] you will allow to register on the [facility] [employer] Patient Portal for access to your information. You can also access the [facility] Patient Portal on the [employer] ina. Simply click on Health Records under WeGame and then click on the [facility] [...] Call your local pharmacy or go to http://bit.Beam Express/5Q9Og9c to find one close to you.3.Make use of household items: Use cat litter or old coffee grounds to dispose medications if other options arenot available. Mix your drugs with these household products, seal them in an airtight container andthrow it into the garbage. Call [facility]: [phone] to be sure your drugs can be [...] am aware that I should contactmy doctor. Patient/Yarder Signature: Date/Time: Relationship to Patient: Witness Name/Signature: Date/Time: [facility] [id number] Endocrinology Progress note Date of Service 11/29/2021 [...] Glucose, Capillary 11/29/2021 07:28:00 EDT 174 mg/dL MA 82-115 Glucose Testing Glucose Level 11/29/2021 04:54:00 EDT 168 mg/dL MA 82-115 Glucose Testing Blood Glucose, Capillary 11/28/2021 20:21:00 EDT 159 mg/dL MA 82-115 Glucose Testing Blood Glucose, Capillary 11/28/2021 16:40:00 EDT 159 mg/dL HI 82-115 Y Glucose Testing Blood Glucose, Capillary 11/28/2021 11:53:00 EDT 202 mg/dL MA 82-115 Glucose Testing Blood Glucose, Capillary 11/28/2021 07:15:00 EDT 205 mg/dL MA 82-115 EKG No qualifying data available. Assessment/Plan 1. 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 Jewell in [place] which revealed an EF of 55% with [...] by DIVINA DOSS on 11/29/2021 11:37 AM [facility] [id number] Hospital Discharge instructions Patient Education 11/29/2021 08:48:47 [...] 05/16/2007 Document Revised: 03/03/2018 Document Reviewed: 03/03/2018 [employer] Patient Education 2020 [employer]. 11/29/2021 08:48:46 Carbohydrate Counting for Diabetes Mellitus, [...] for every person. A diet and nutrition consultant (registered dietitian) can help you make a [...] 15 g of carbohydrates: hamburger bun or [place] Verdean muffin. oz (15 mL) syrup. oz (14 [...] 1.Identify the foods that contain carbohydrates: Rice. [place]. Milk. Strawberries. 2.Calculate how many servings you [...] manage your diabetes. A diet and nutrition consultant (registered dietitian) can help you make a meal plan and calculate how many carbohydrates you should have at each meal and snack. This information is not intended to replace advice given to you by your health care provider. Make sure you discuss any questions you have with your health care provider. Document Released: 03/04/2006 Document Revised: 09/26/2017 Document Reviewed: 08/15/2016 [employer] Patient Education 2020 [employer]. 11/29/2021 08:48:44 8- Open Heart Surgery (Bypass [...] diet and you may take a mild nalq-bun-uifmmjh laxative like Milk of Magnesia . CARDIAC [...] call your surgeon or your heart doctor. [facility] also has a free stop smoking program called Give it Up and if you want to attend, pleasecall [phone] ([phone]). Call the Surgeon If your incisions are [...] in your calf. Call the Heart Doctor (Metaphysician) If your heart beats are irregular or [...] Follow Up Care 10/11/2021 14:55:42 With:Discharge to [facility] [phone] Address:Unknown When:1-2 days With:GAGE CHIRINOS MD, [facility] Address: [address] [place] [phone] When: Unknown Comments:Please call rianna for follow-up appointment in 4-6 weeks (re: diabetes), can schedule at [place] office. Bring blood glucose meter with you to your appointment. With:SAQIB FRASER MD, [facility], Urology Service Address: [address] [facility] [address] [facility] [place] [address] [phone] When:1-2 days Comments:Please call to arrange a hospital follow-up and possible trial void. With:HARISH NOEL MD Address: [address] [facility] [address] [place] [address] [phone] When:1-2 days Comments:Please call to arrange a hospital follow-up. With:JUAN JUAREZ APRN-PORTABLE MACHINE SANDER Address: [address] [place] [address] [address] [facility] [place] [address]- When:12/05/2021 10:00:00 Comments:This will be with Dr. Philippe's nurse practitioner. Please present to [facility] 1 hour prior to this visit for chest x-ray. Chest padmini will be removed at this visit. With:free Address: When: Unknown Comments:Follow up with primary care to have a Sleep Study ordered With:[facility] Address: [address] [place] [address] [place] [address]- When: Unknown Comments:The Cardiac Rehab department will call you in 6 weeks to schedule you for phase 2. Information given about cardiac rehab. If you have any questions please call [phone]. [facility] 09-14-2022 Discharge summary Date of Service 11/29/2021 Discharge Diagnosis 1. CAD IN BAD RIVER BAND ARTERY s/p PCI 2016; s/p CABG x2 [...] (R32 - ICD-10-CM) Atherosclerotic heart disease of [place] coronary artery without angina pectoris (I25.10 - [...] oral tablet; Dose : 50 mg = 1tab(s), Oral, q6hr, PRN Pain, scale 7-10, X 7 day(s), # 28 tab(s), 0 Refill(s), 12/06/21 9:21:00 EDT, Acute postoperative pain, 102.3 Additional Orders: Other status: BMP,11/29/21 5:01:00 EDT, Next AM Draw (one day only), Blood, Once, Preferred Lab: [facility], Stop date 11/29/21 4:00:00 EDT(Complete) Other status: CBC,11/29/21 5:01:00 EDT, Next AM Draw (one day only), Blood, Once, Preferred Lab: [facility], Stop date 11/29/21 4:00:00 EDT(Complete) Ordered: Communication Order (scheduled),11/29/21 9:18:00 EDT, Once, 11/29/21 9:18:00 EDT, Temporary pacer wires removed at 8:30 AM. Patient may be discharged to [facility] after 12:30 PM. 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 Jewell in [place] which revealed an EF of 55% with [...] nebs. nitroprusside drip has been weaned off. [facility] consulted for diabetic management. PT/OT consulted. [...] obtain urinalysis and urine culture, and consult [facility]. WBC 20.3 this morning. Discontinue A-line. [...] greater than 200 cc. Likely discharge to [facility] tomorrow. [1]POD #6: Patient feels much better today. Denies any nausea. She is anxious to leave today. SPO2 93 to 95% on 1.5 L nasal cannula (87% on room air). CBC and BMP reviewed with Dr. Philippe as well as chest x-ray. Patient is cleared to be discharged to [facility] per Dr. Philippe. We will increase [...] and will need to follow-up with the [facility] for possible trial void versus catheter [...] obtusemarginal coronary artery. [2] Consults Consult to [facility] - Ordered -- 11/24/21 6:54:00 [...] bra or breast support. Medications New Prescription [id number] Milligram by mouth every 4 hours as [...] pain. Refills: 3. I have reviewed the [place] Automated Rx Reporting System (OARRS) report for [...] Dr. Philippe's nurse practitioner. Please present to [facility] 1 hour prior to this visit for chest x-ray. Chest padmini will be removed at this visit. Where: [address] [facility] [address] [facility] [place] [address]- Follow Up with Discharge to [facility] LOC [phone] When Within 1-2 days Follow Up with GAGE CHIRINOS MD, [facility] When Why: Please call rianna for follow-up appointment in 4-6 weeks (re: diabetes), can schedule at [facility]. Bring blood glucose meter with you to your appointment. Where: [address], [place] [phone] Follow Up with SAQIB FRASER MD, [facility], [facility] When Within 1-2 days Why: Please call to arrange a hospital follow-up and possible trial void. Where: [address] [facility] [address] [place] [address]- [phone] Follow Up with HARISH NOEL MD When Within 1-2 days Why: Please call to arrange a hospital follow-up. Where: [address] [facility] [address] [place] [address]- [phone] Follow Up with free When Why: Follow up with primary care to have a Sleep Study ordered Where: Follow Up with Cardiac Rehab When Why: The Cardiac Rehab department will call you in 6 weeks to schedule you for phase 2. Informationgiven about cardiac rehab. If you have any questions please call [phone]. Where: [address] [facility] [place] [address]- Follow Up Appointments Transfer of Care OT [...] to: POLLY PHILIPPE MD, Please present to [facility] 1 hour prior to office [...] To Patient [1] Progress Note; NAT DUNN APRN-PORTABLE MACHINE SANDER 11/28/2021 10:10 EDT [2] OPERATIVE NOTE; POLLY PHILIPPE MD 11/23/2021 00:00 EDT Digitally Signed by NAT DUNN APRN-PORTABLE MACHINE SANDER on 11/29/2021 02:50 PM [facility] [id number] Note Discharge Instructions Thank you for allowing [facility] to assist you with your healthcare needs. The following is importantdischarge information regarding your hospital visit. Your Care Team HARISH NOEL MD Your Diagnosis CAD IN BAD RIVER BAND ARTERY s/p PCI 2015; s/p CABG x2 [...] Op 12/05/2021 10:00 AM EDT JUAN JUAREZ [facility] Follow Up Appointments Follow Up with JUAN JUAREZ When 12/05/2021 10:00 AM EDT Why: This will be with Dr. Philippe's nurse practitioner. Please present to [facility] 1 hour prior to this visit for chest x-ray. Chest padmini will be removed at this visit. Where: [address] [facility] [place] [address]- Follow Up with Discharge to [facility] LOC [phone] When Within 1-2 days Follow Up with GAGE CHIRINOS MD, [facility] When Why: Please call rianna for follow-up appointment in 4-6 weeks (re: diabetes), can schedule at [place] office. Bring blood glucose meter with you to your appointment. Where: [address], [place] [address] [phone] Follow Up with SAQIB FRASER MD, [facility] When Within 1-2 days Why: Please call to arrange a hospital follow-up and possible trial void. Where: [address] [facility] [address] [facility] [place] [address]- [phone] Follow Up with HARISH NOEL MD When Within 1-2 days Why: Please call to arrange a hospital follow-up. Where: [address] [facility] [address] [place] [address]- [phone] Follow Up with free When Why: Follow up with primary care to have a Sleep Study ordered Where: Follow Up with Cardiac Rehab When Why: The Cardiac Rehab department will call you in 6 weeks to schedule you for phase 2. Informationgiven about cardiac rehab. If you have any questions please call [phone]. Where: [address] [facility] [place] [address]- The Following Activity and Diet Have Been [...] to: POLLY PHILIPPE MD, Please present to [facility] 1 hour prior to office [...] for every person. A diet and nutrition consultant (registered dietitian) can help you make a [...] 15 g of carbohydrates: hamburger bun or [place] Verdean muffin. oz (15 mL) syrup. oz (14 [...] Identify the foods that contain carbohydrates: Rice. [place]. Milk. Strawberries. 2. Calculate how many servings [...] manage your diabetes. A diet and nutrition consultant (registered dietitian) can help you make a meal plan and calculate how many carbohydrates you should have at each meal and snack. This information is not intended to replace advice given to you by your health care provider. Make sure you discuss any questions you have with your health care provider. Document Released: 03/04/2006 Document Revised: 09/26/2017 Document Reviewed: 08/15/2016 [employer] Patient Education 2020 [employer] OPEN HEART SURGERY (Bypass or Valve [...] diet and you may take a mild dack-sut-wvofjxd laxative like Milk of Magnesia . CARDIAC [...] call your surgeon or your heart doctor. [facility] also has a free stop smoking program called Give it Up and if you want to attend, pleasecall [phone] ([phone]). Call the Surgeon If your incisions are [...] in your calf. Call the Heart Doctor (Metaphysician) If your heart beats are irregular or [...] to receive it can visit one of [facility] vaccine clinics. There are many vaccine clinic locations within the [facility]. For locations and available times, please visit https://gettheshot.[email or web address].[email or web address].gov/. It is important to note that some COVID mobile vaccine clinics are held outdoors and may be canceled in rainy or stormy conditions. To learn more about pediatric vaccinations (ages 5-11), we invite you to visit the [facility] webpage. https://www.[facility].org/pages/0060-Uuzmw-Vfdnflrdpff-Jtfzyygmka-Lnplc-Ivo stions.htmlTo learn more about the COVID-19 vaccine, we invite you to visit the [employer] website for a list of frequently asked questions. https://[email or web address]assets/Ynnvglid-jrf-Swylvxrh/btoeg-Wymwoae-Dfguxmwchx _Asked-Questions.pdf [employer] Patient Portal Access Instructions: Stay connected with your healthcare team and access your personal medical information anytime with the [employer] Patient Portal.If you would like a full copy of your medical records, please contact the [facility] Medical Records Department, Saturday through Saturday between 8a.m. and 4:30p.m. Please follow the directions below to access the portal: 1.Access the email account you provided upon registration to the hospital.2.Look for an invitation email from [facility].3.Open the email and access the invitation link: Accept Invitation to [facility]4.Fill in the required singer to create your account. Sign into [email or web address] with your username and password that you [...] will allow to register on the [facility] Patient Portal for access to your information. You can also access the [facility] Patient Portal on the [employer]. Simply click on Health Records under WeGame and then click on the [employer] logo. HOW TO SAFELY DISPOSE OF PRESCRIPTION [...] Call your local pharmacy or go to http://bit.ly/6Q4Tf4c to find one close to you.3.Make use of household items: Use cat litter or old coffee grounds to dispose medications if other options arenot available. Mix your drugs with these household products, seal them in an airtight container andthrow it into the garbage. Call [facility]: [phone] to be sure your drugs can be [...] am aware that I should contactmy doctor. Patient/Yarder Signature: Date/Time: Relationship to Patient: Witness Name/Signature: Date/Time: [facility] [id number] Note Date of Service 11/29/2021 Temporary A and V pacer wires discontinued at [place] 8:30 AM. Patient tolerated well. Patient instructed to remain bedrest for 1 hour. Digitally Signed by NAT DUNN APRN-PORTABLE MACHINE SANDER on 11/29/2021 08:44 AM [facility] [id number] Note ORIGINAL EXAMINATION: TWO XRAY VIEWS OF [...] Date: 11/30/2021 12:35:45 AM Ordering Provider: NAT A[facility]BESt. [facility] [id number] Nurse Progress note Student's documentation was reviewed and all medications were verified prior to administration. Digitally Signed by Windy Jaimes RN on 11/28/2021 06:34 PM [facility] [id number] Note Date of Service 11/28/2021 Chief Complaint POD #5 This is a 71-year-old female with past medical history of CAD status post PCI in 2016, hypothyroidism, hypertension, hyperlipidemia, irritable bowel syndrome, diabetes, history of DVT, history of tobacco use (quit 6 years ago), history of GI bleeds requiring blood transfusions, and obesity. 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 Jewell in [place] which revealed an EF of 55% with [...] nebs. nitroprusside drip has been weaned off. [facility] consulted for diabetic management. PT/OT consulted. [...] obtain urinalysis and urine culture, and consult [facility]. WBC 20.3 this morning. Discontinue A-line. Keep in ICU. Postop day [facility] Aggressive pulmonary toilet. Wean O2. Voiding [...] greater than 200 cc. Likely discharge to [facility] tomorrow. Subjective Patient resting comfortably in [...] access: Left subclavian triple-lumen Disposition: [facility] [place] Weight Current Weight Dosing Weight: 102.3 kg [...] 11/26/21 20:59:00 EDT Assessment/Plan 1. CAD IN BAD RIVER BAND ARTERY s/p PCI 2016; s/p CABG x2 [...] Diabetes mellitus Hgb A1c 9.7% Followed by [facility]. Glucoses ranging 172-240. On Humalog sliding [...] negative. 15. Postoperative urinary retention Followed by [facility]. Urine culture negative. Plan to remove [...] many are missed. [1] Progress Note; KAELYN DREWJOINT SUPERVISOR 11/27/2021 08:52 EDT Digitally Signed by NAT DUNN on 11/28/2021 10:23 AM [facility] [id number] Endocrinology Progress note Date of Service 11/28/2021 [...] (Oral) HR: 100(Monitored) RR: 17 BP: 120/63 SpO2: 87% Intake and Output 7AM Yesterday to 7AM [...] Glucose, Capillary 11/28/2021 11:53:00 EDT 202 mg/dL MA 82-115 Glucose Testing Blood Glucose, Capillary 11/28/2021 07:15:00 EDT 205 mg/dL HI 82-115 Glucose Testing Blood Glucose, Capillary 11/27/2021 21:05:00 EDT 172 mg/dL HI 82-115 Glucose Testing Blood Glucose, Capillary 11/27/2021 16:40:00 EDT 240 mg/dL HI 82-115 Y Glucose Testing Blood Glucose, Capillary 11/27/2021 11:19:00 EDT 168 mg/dL MA 82-115 Glucose Testing Blood Glucose, Capillary 11/27/2021 07:17:00 EDT 166 mg/dL MA 82-115 EKG No qualifying data available. Assessment/Plan 1. 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 Jewell in [place] which revealed an EF of 55% with [...] by DIVINA DOSS on 11/28/2021 01:30 PM [facility] [id number] Nurse Progress note Patient refused morning potassium, education provided on why patient was prescribed this supplement, patient stated she couldn't take any more pills this morning. Patient stated she wanted to sign herself out, did not want to go to an extended care facility for therapy. More education provided. Digitally Signed by Ina Dukes RN on 11/28/2021 12:16 PM [facility] [id number] Note Date of Service 11/28/2021 Chief Complaint POD #5 This is a 71-year-old female with past medical history of CAD status post PCI in 2016, hypothyroidism, hypertension, hyperlipidemia, irritable bowel syndrome, diabetes, history of DVT, history of tobacco use (quit 6 years ago), history of GI bleeds requiring blood transfusions, and obesity. 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 Jewell in [place] which revealed an EF of 55% with [...] nebs. nitroprusside drip has been weaned off. [facility] consulted for diabetic management. PT/OT consulted. [...] obtain urinalysis and urine culture, and consult [facility]. WBC 20.3 this morning. Discontinue A-line. Keep in ICU. Postop day #4. [facility] Aggressive pulmonary toilet. Wean O2. Voiding [...] Increase carvedilol to 12.5 mg twice daily. Discon tinue [place] catheter today for an attempt a trial void. Bladder scan in 4 hours. We will replace indwelling [place] catheter if bladder scan is greater than 200 cc. Likely discharge to [facility] tomorrow. Subjective Patient resting comfortably in [...] access: Left subclavian triple-lumen Disposition: [facility] [place] Weight Current Weight Dosing Weight: 102.3 kg [...] 11/26/21 20:59:00 EDT Assessment/Plan 1. CAD IN BAD RIVER BAND ARTERY s/p PCI 2016; s/p CABG x2 [...] Diabetes mellitus Hgb A1c 9.7% Followed by [facility]. Glucoses ranging 172-240. On Humalog sliding [...] negative. 15. Postoperative urinary retention Followed by [facility]. Urine culture negative. Plan to remove [...] are missed. [1] Progress Note; KAELYN DREW 11/27/2021 08:52 EDT Digitally Signed by NAT DUNN on 11/28/2021 10:23 AM [facility] [id number] Note. MICRO - Microbiology PROCEDURE: Urine Culture [...] Locations *1: This test was performed at: [address], [facility] , [facility] ([place])11-28-2021 Note ORIGINAL EXAMINATION: TWO XRAY VIEWS OF [...] Sign Date: 11/28/2021 8:13:29 AM Ordering Provider: [facility]09-13-2022 Note ORIGINAL EXAMINATION: TWO XRAY VIEWS [...] Date: 11/28/2021 8:13:29 AM Ordering Provider: [facility]09-12-2022 Endocrinology Progress note Date of Service 11/27/2021 [...] Glucose, Capillary 11/27/2021 07:17:00 EDT 166 mg/dL MA 82-115 Glucose Testing Blood Glucose, Capillary 11/26/2021 23:04:00 EDT 137 mg/dL MA 82-115 Glucose Testing Blood Glucose, Capillary 11/26/2021 20:38:00 EDT 142 mg/dL MA 82-115 Glucose Testing Blood Glucose, Capillary 11/26/2021 16:40:00 EDT 161 mg/dL MA 82-115 Glucose Testing Blood Glucose, Capillary 11/26/2021 11:24:00 EDT 243 mg/dL MA 82-115 Glucose Testing Blood Glucose, Capillary 11/26/2021 07:35:00 EDT 165 mg/dL MA 82-115 EKG EKG - Completed -- 11/26/21 20:59:00 EDT Electrocardiogram - InProcess -- 11/27/21 6:00:00 EDT, On the 4th post op day Assessment/Plan 1. 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 Jewell in [place] which revealed an EF of 55% with [...] by DIVINA DOSS on 11/27/2021 10:48 PM [facility] [id number] Note Date of Service 11/27/2021 postop day #4 Chief Complaint This is a 71-year-old female with past medical history of CAD status post PCI in 2016, hypothyroidism, hypertension, hyperlipidemia, irritable bowel syndrome, diabetes, history of DVT, history of tobacco use (quit 6 years ago), history of GI bleeds requiring blood transfusions, and obesity. 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 Jewell in [place] which revealed an EF of 55% with [...] nebs. nitroprusside drip has been weaned off. [facility] consulted for diabetic management. PT/OT consulted. [...] obtain urinalysis and urine culture, and consult [facility]. WBC 20.3 this morning. Discontinue A-line. [...] mg 1 tab(s), Oral, q4h Lab Results 09/12 04:57 WBC: 19.1 H Hgb: 11.6 L [...] inflammatory process. [1] Assessment/Plan 1. CAD IN [place] s/p PCI 2015; s/p CABG x2 11/23/21, EF55% No ASA or statin secondary to allergy, Coreg dose increased On Bumex and KCl 2. Acute blood loss anemia Stable, hemoglobin 11.6/hematocrit 35.1 3. Diabetes mellitus Hgb A1c 9.7% Glucose 137 142, on sliding scale insulin and [facility]mond[facility]Luis Miguel [facility] inpatient endocrinology following 4. High blood pressure [...] by KAELYN DREW on 11/27/2021 09:00 AM [facility] CenterTrsmnkow23-29-0666 Note ORIGINAL EXAMINATION: TWO XRAY VIEWS OF [...] 11/27/2021 7:51:49 AM Ordering Provider: NAT DUNN [facility] CenterMrnpkrma07-35-4937 Note ORIGINAL EXAMINATION: TWO XRAY VIEWS OF [...] Date: 11/27/2021 7:51:49 AM Ordering Provider: NAT [facility]09-11-2022 Nurse Progress note Patient had increased SOB and chest pain around 2100. EKG obtained showing SR with RBBB, unchanged from prior. Dr. Kohler notified or patient status, orders obtained from CXR and ABG. Results discussedwith Dr. Kohler, order for patient to go on bipap and recheck ABG in 1 hour. Patient placed on bipap-frequently infection prevention specialist-light, requesting to come off. Patient thoroughly educated [...] Avis Peters RN on 11/26/2021 10:49 PM [facility] [id number] Note ORIGINAL EXAMINATION: ONE XRAY VIEW OF [...] Sign Date: 11/26/2021 9:26:00 PM Ordering Provider: [facility]09-11-2022 Note ORIGINAL EXAMINATION: ONE XRAY VIEW OF [...] Sign Date: 11/26/2021 9:26:00 PM Ordering Provider: [facility]09-11-2022 Endocrinology Progress note Date of Service 11/26/21 [...] qualifying data available. Assessment/Plan 1. CAD IN [place] s/p PCI 2015; s/p CABG x2 [...] 22:00:00 EDT, Give 0-10 units/dose, Subcutaneous, achs, 11/25/21:27:00 EDT This is a 71-year-old female with past medical history of CAD status post PCI in 2016, hypothyroidism, hypertension, hyperlipidemia, irritable bowel syndrome, diabetes, history of DVT, history of tobacco use (quit 6 years ago), history of GI bleeds requiring blood transfusions, and obesity. 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 Jewell in [place] which revealed an EF of 55% with [...] A1c goals, glycemic targets. Would benefit from assistant signal maintainer and special educator evaluation. Appreciate their input. She is [...] by CRYSTAL PRESSLEY on 11/26/2021 04:48 PM [facility] CenterIugxjfkn65-86-2481 Urology Consult note Date of Service 11/26/21 Reason for Consultation Urinary retention Referring Physician Dr. Kohler History of Present Illness s/p 2v CABG by Dr. Philippe on 11/23/21. [place] was removed postop. Patient was voiding freely. She complained of dysuria. UA was negative for UTI. AZU=334 cc. [place] catheter was inserted. Patient has [...] (2) No ventral hernias. 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 Neurologic: (1) Grossly [...] Negative. (11/26/21 07:27:00) Assessment/Plan 1. CAD IN [place] s/p PCI 2016; s/p CABG x2 [...] List/Past Medical History Ongoing Bronchitis CAD IN [place] CARDIOGENIC SHOCK CHEST PAIN IN ADULT [...] mg= 1 tab(s), Oral, qDayAC Sore Throat [place], 1 spray(s), Topical, q1h, PRN Surfak Stool [...] by SAQIB FRASER MD on 11/26/2021 11:01 [facility]09-11-2022 Pulmonary Progress note Date of Service 11/26/2021 Chief Complaint 71-year-old female with past medical history of CAD status post PCI in 2016, hypothyroidism, hypertension, hyperlipidemia, irritable bowel syndrome, diabetes, history of DVT, history of tobacco use (quit 6 years ago), history of GI bleeds requiring blood transfusions, and obesity. 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 Jewell in [place] which revealed an EF of 55% with [...] qualifying data available. Assessment/Plan 1. CAD IN [place] s/p PCI 2015; s/p CABG x2 [...] DOLORES CARRILLO MD on 11/26/2021 10:48 AM [facility] CenterTicrkujg13-73-0799 Nurse Progress note Patient refusing to sit in chair for meals and refusing to ambulate per physician orders, despite education of expectations and complications from failure to do these. Digitally Signed by LARS Lopez on 11/26/2021 08:08 AM [facility] CenterPqhqjlwq93-09-7130 Note Date of Service 11/26/2021 Chief Complaint POD #3 This is a 71-year-old female with past medical history of CAD status post PCI in 2016, hypothyroidism, hypertension, hyperlipidemia, irritable bowel syndrome, diabetes, history of DVT, history of tobacco use (quit 6 years ago), history of GI bleeds requiring blood transfusions, and obesity. 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 Jewell in [place] which revealed an EF of 55% with [...] nebs. nitroprusside drip has been weaned off. [facility] consulted for diabetic management. Currently on [...] obtain urinalysis and urine culture, and consult [facility]. WBC 20.3 this morning. Chest x-ray [...] qualifying data available. Assessment/Plan 1. CAD IN [place] s/p PCI 2015; s/p CABG x2 11/23/21, EF55% Normal sinus rhythm. Heart rate ranging 84-88. Blood pressures ranging 127/66- 147/65. No aspirin orstatin secondary to allergies. On carvedilol. Weight down 1.5 kg since yesterday. On Bumex/KCl. 2. Acute blood loss anemia H&H 10.3 and 31.7. 3. Diabetes mellitus Hgb A1c 9.7% Followed [facility]. Glucoses ranging 94-209. On Humalog [...] by NAT DUNN on 11/26/2021 10:49 AM [facility] [id number] Note ORIGINAL EXAMINATION: ONE XRAY VIEW OF [...] 11/26/2021 6:50:40 AM Ordering Provider: NAT DUNN [facility] [id number] Note ORIGINAL EXAMINATION: ONE XRAY VIEW OF [...] Date: 11/26/2021 6:50:40 AM Ordering Provider: [facility]09-10-2022 Endocrinology Progress note Date of Service 11/25/21 [...] requirements over 10 units an hour, this isbeing tapered back down. She remains only on a clear liquid diet and only had a Jell-O this morningfor breakfast Objective Vitals and Measurements T: 37.1 [...] qualifying data available. Assessment/Plan 1. CAD IN [place] s/p PCI 2016; s/p CABG x2 [...] She hada cardiac 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 Jewell in [place] which revealed an EF of 55% with [...] A1c goals, glycemic targets. Would benefit from assistant signal maintainer and special educator evaluation. Appreciate their input. She is [...] by CRYSTAL PRESSLEY on 11/25/2021 05:28 PM [facility] CenterSwfskgbq22-73-3447 Pulmonary Progress note Date of Service 11/25/2021 Chief Complaint 71-year-old female with past medical history of CAD status post PCI in 2016, hypothyroidism, hypertension, hyperlipidemia, irritable bowel syndrome, diabetes, history of DVT, history of tobacco use (quit 6 years ago), history of GI bleeds requiring blood transfusions, and obesity. 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 Jewell in [place] which revealed an EF of 55% with [...] Intake 1725.27 Total Output 3767.00 Fluid Balance -2040.73 Physical Exam Constitutional: Alert, oriented, appropriate HEENT: [...] qualifying data available. Assessment/Plan 1. CAD IN [place] s/p PCI 2015; s/p CABG x2 9/8/22, EF55% 2. Acute blood loss anemia 3. [...] DOLORES CARRILLO MD on 11/25/2021 10:42 AM [facility] [id number] Note Date of Service 11/25/2021 Chief Complaint POD #2: This is a 71-year-old female with past medical history of CAD status post PCI in 2016, hypothyroidism, hypertension, hyperlipidemia, irritable bowel syndrome, diabetes, history of DVT, history of tobacco use (quit 6 years ago), history of GI bleeds requiring blood transfusions, and obesity. 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 Jewell in [place] which revealed an EF of 55% with [...] nebs. nitroprusside drip has been weaned off. [facility] consulted for diabetic management. Currently on [...] and Fleet enema for bowel movement. Keep in ICU to monitor respiratory status [...] murmur, positive pericardial friction rub, heart rate [id number], temporary a and V pacer wires intact; [...] post op day Assessment/Plan 1. CAD IN [place] s/p PCI 2015; s/p CABG x2 [...] Diabetes mellitus Hgb A1c 9.7% Followed [facility]. Glucoses ranging 67-154. No longer [...] gender, phrases, and punctuation that may be outof context or that were missed in checking this note before saving. Reasonable effort is made to correct such errors, but with demands of normal work flow, many are missed. Digitally Signed by NAT DUNN on 11/25/2021 10:54 AM [facility] [id number] Note ORIGINAL EXAMINATION: ONE XRAY VIEW OF [...] Sign Date: 11/25/2021 6:55:32 AM Ordering Provider: [facility]09-10-2022 Note ORIGINAL EXAMINATION: ONE XRAY VIEW OF [...] Date: 11/25/2021 6:55:32 AM Ordering Provider: [facility]09-09-2022 Note ORIGINAL EXAMINATION: ONE XRAY VIEW OF [...] 11/24/2021 10:21:41 PM Ordering Provider: POLLY PHILIPPE [facility] [id number] Note Result type: Cardiothoracic Surgery Office Note Result date: November 21, 2021 14:15 EDT Result status: Auth (Verified) Result title: Office Visit Note Performed by: POLLY PHILIPPE MD on November 21, 2021 14:15 EDT Verified by: POLLY PHILIPPE MD on November 21, 2021 14:15 EDT Encounter info: [id number], CTS CAN, Office, 11/21/2021 - 11/21/2021 Chief Complaint [...] Leg Swelling : No Jennifer Padilla RN - 11/21/2021 13:29 EDT Stomach/Bowel Review of Systems Grid Constipation : No Diarrhea : Yes Difficulty swallowing : No Jennifer Padilla RN - 11/21/2021 13:29 EDT Skin,Hair Problems Review of [...] List/Past Medical History Ongoing Bronchitis CAD IN [place] CARDIOGENIC SHOCK CHEST PAIN IN ADULT [...] 13:29 EDT [2] Ambulatory Vitals Height Weight; Marilu Leyva RMA 11/21/2021 13:36 EDT Signature Line Digitally Signed by POLLY PHILIPPE MD on 11/21/2021 02:15 PM [1] (copied from office note/pp) [1] Office Visit Note; POLLY PHILIPPE MD 11/21/2021 14:15 EDT Digitally Signed by CAROLINE Willingham on 11/24/2021 02:06 PM [facility] CenterAsjuvrte05-66-7678 Endocrinology Consult note Date of Service 11/24/21 [...] She hada cardiac 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 Jewell in [place] which revealed an EF of 55% with [...] 103 mg/dL 82-115 Assessment/Plan 1. 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 Jewell in [place] which revealed an EF of 55% with [...] A1c goals, glycemic targets. Would benefit from assistant signal maintainer and special educator evaluation. Appreciate their input. She is [...] weeks Discussed plan of care with Dr. hCirinos and she is agreeable. Thank you for this consult, we will continue to follow while inpatient. Problem List/Past Medical History Ongoing Bronchitis CAD IN [place] CARDIOGENIC SHOCK CHEST PAIN IN ADULT [...] mg= 1 tab(s), Oral, qDayAC Sore Throat [place], 1 spray(s), Topical, q1h, PRN Surfak Stool [...] by CRYSTAL PRESSLEY on 11/24/2021 03:52 PM [facility] CenterShjvunia06-06-2827 Pulmonary Consult note Date of Service 11/24/2021 History of Present Illness 71-year-old female with past medical history of CAD status post PCI in 2016, hypothyroidism, hypertension, hyperlipidemia, irritable bowel syndrome, diabetes, history of DVT, history of tobacco use (quit 6 years ago), history of GI bleeds requiring blood transfusions, and obesity. 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 Jewell in [place] which revealed an EF of 55% with [...] left basilar consolidation. Assessment/Plan 1. CAD IN [place] s/p PCI 2015; s/p CABG x2 [...] List/Past Medical History Ongoing Bronchitis CAD IN [place] CARDIOGENIC SHOCK CHEST PAIN IN ADULT [...] mg= 1 tab(s), Oral, qDayAC Sore Throat [place], 1 spray(s), Topical, q1h, PRN Surfak Stool [...] CHRIS FRY MD on 11/24/2021 11:15 AM [facility] CenterSqgfijuy94-19-9988 Note Date of Service 11/24/2021 Chief Complaint POD #1 This is a 71-year-old female with past medical history of CAD status post PCI in 2016, hypothyroidism, hypertension, hyperlipidemia, irritable bowel syndrome, diabetes, history of DVT, history of tobacco use (quit 6 years ago), history of GI bleeds requiring blood transfusions, and obesity. 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 Jewell in [place] which revealed an EF of 55% with [...] pulmonary. nitroprusside drip has been weaned off. [facility] consulted for diabetic management. Currently on [...] qualifying data available. Assessment/Plan 1. CAD IN [place] s/p PCI 2016; s/p CABG x2 [...] insulin drip at 2 units/h. Will consult [facility]. 4. High blood pressure Blood [...] to 40% FiO2. Consult pulmonary Plan: Consult [facility] for diabetic management Consult PT [...] by NAT DUNN on 11/24/2021 08:20 AM [facility] CenterUaiojuvj24-74-6311 Note ORIGINAL EXAMINATION: ONE XRAY VIEW OF THE CHEST11/24/2021 9:56 pm COMPARISON: Chest x-ray November 23, 2021 HISTORY: ORDERING SYSTEM PROVIDED HISTORY: Reason for Exam: abnormal breath sounds FINDINGS: Median sternotomy wires with midline surgical pdamini. Left chest tube again seen. Mediastinal drain [...] Sign Date: 11/24/2021 10:21:41 PM Ordering Provider: [facility]09-08-2022 Note ORIGINAL EXAMINATION: ONE XRAY VIEW OF [...] Sign Date: 11/23/2021 1:40:56 PM Ordering Provider: [facility]09-08-2022 Note ORIGINAL EXAMINATION: ONE XRAY VIEW OF [...] Polly Ram DO Preliminary Report By: Polly Rma DO Electronically signed By Polly Ram DO Dictated Date: 11/23/2021 1:38:02 PM Prelim Date: 11/23/2021 1:40:56 PM Sign Date: 11/23/2021 1:40:56 PM Ordering Provider: [facility]09-08-2022 Anesthesiology Consult note Patient: FELICITAS ALCANTARA Age: [...] 15 mL, 3 Refill(s), Pharmacy: [facility] [address], 157.2, cm, 01/21/20 14:13:00EST, Height, kg, 01/21/20 14:13:00 EST, Dosing Weight nitroglycerin 0.4 mg sublingual tablet: 0.4 mg Dose = 1 tab(s), Sublingual, q5min, PRN as needed for chest pain, # 25 tab(s), 3 Refill(s), Pharmacy: [facility] [address], 157.5, cm, 08/31/19 16:27:00 EDT, Height, [...] (deep vein thrombosis) in / SNOMED CT 08972204 / Confirmed Bronchitis / SNOMED CT 91460452 / Confirmed CARDIOGENIC SHOCK / SNOMED CT 740035748 / Confirmed CHEST PAIN IN ADULT / SNOMED CT 39532899 / Confirmed CKD stage 3 / SNOMED CT 4030174060 / Confirmed CONGESTIVE HEART FAILURE, UNSPECIFIED CONGESTIVE HEART FAILURE CHRONICITY, UNSPECIFIED CONGESTIVE HEART FAILURE TYPE / SNOMED CT 05793857 / Confirmed Coronary artery disease / SNOMED CT 5654753176 / Confirmed CAD IN [place] ART[place] / SNOMED CT 5419952053 / Confirmed Diabetes mellitus / SNOMED CT 355935037 / Confirmed Dysphagia / SNOMED CT 03176233 / Confirmed FATIGUE / SNOMED CT 773580158 / Confirmed Heart attack / SNOMED CT 67074770 / Confirmed High blood pressure / SNOMED CT 28407592 / Confirmed HISTORY OF ST ELEVATION MYOCARDIAL INFARCTION (STEMI) / SNOMED CT 6433311086 / Confirmed H/O irritable bowel syndrome / SNOMED CT 5217781635 / Confirmed Former tobacco use / SNOMED CT 0735641339 / Confirmed Hyperlipemia / SNOMED CT 19768169 / Confirmed Hypertension / SNOMED CT 02624922 / Confirmed Hypothyroid / SNOMED CT 027386786 / Confirmed IBS (irritable bowel syndrome) / SNOMED CT 49124760 / Confirmed Non-compliance / SNOMED CT 6253535350 / Confirmed OBESITY / SNOMED CT 1700580143 / Confirmed Perforated ulcer / SNOMED CT 195314339 / Confirmed Polyneuropathy / SNOMED CT 96722256 / Confirmed Type 2 diabetes mellitus uncontrolled / SNOMED CT 6995967870 / Confirmed Urinary tract infection / SNOMED CT 012426032 / Confirmed VITAMIN D DEFICIENCY / SNOMED CT 23934573 / Confirmed, Active Problems (33) Bronchitis CAD IN [place] CARDIOGENIC SHOCK CHEST PAIN IN ADULT [...] Histories Past Medical History: Active Perforated ulcer (634396615) DVT (deep vein thrombosis) in (74878908) High blood pressure (62052859) Bronchitis (51617415) Diabetes mellitus (613691957) Urinary tract infection (800803773) Coronary artery disease (4218779050) Former tobacco use (6964204104) Comments: 04/09/2016 EST 19:51 Summer Reddy RN quit 12/2015 Family History: Cardiac pacemaker Brother COPD - Chronic obstructive pulmonary disease Sister Diabetes mellitus Sister Heart disease Brother Stroke Father ([place]) Heart attack Mother ([place]) Cancer Sister Aneurysm Father ([place]) Heart attack 14-Sep-2015 02:33:12<$> Mother ([place]) Brother Procedure history: CABG (Coronary artery bypass grafting) planned (3880061793) on 11/23/2021 at 71 Years. Cardiac catheterization (09552499) on 09/05/2021 at 70 Years. Cardiac catheterisation (755782150) on 04/10/2016 at 65 Years. Comments: 04/10/2016 5:58 LARS Rodriguez possible PTCA Stent placement (932456113) on 01/03/2016 at 65 Years. History of hysterectomy ([id number]). Hysterectomy (810848633). H/O: tubal ligation (959552200). Histology tonsillectomy (142768999). Colonoscopy (858832831). EGD - Esophagogastroduodenoscopy (3036906311). Social History Social & Psychosocial Habits Alcohol [...] Person #2 We May Share PHI Katherine [phone] Designated Person #2 Relationship Other: sister Additional Designated Person Share PHI Kathya- daughter Privacy Restrictions Requested None Height 157.5 cm Admission Weight 102.3 kg Weight Method Actual [place] Body Weight 50.12 kg Body Mass Index [...] Loss No Safety Brochure Information Reviewed Yes [facility] Video Viewed No Barriers to Learning None evident Teaching Method Printed materials Teaching Evaluation Verbalizes/Nonverbally indicates understanding Preferred Written Language [place] Preferred Spoken Language [place] Information Given by Patient Patient's Current Physicians [...] Ready for Pickup . Assessment and Plan [place] [employer] Anesthesiologists (ASA) physical status classification: [...] JOHNATHON TANNER DO on 11/23/2021 08:39 AM [facility] CenterRxgihckf25-74-3555 SARS-CoV-2 (COVID-19) RNA SLOAN+probe Ql (Nph)Negative (11/17/21 12:00 PM)AO Auto Urine [id number] Evaluation note* Diagnosis Onset Date Resolution Status History of coronary artery bypass surgery November, acute Essential hypertension chron ic Hyperlipemia chronic Hypothyroidism chronic IBS (irritable bowel syndrome) chronic Type 2 diabetes mellitus chr onic History of coronary artery bypass surgery November, acute Atherosclerotic heart diseas e of [place] coronary artery without angina pectoris chronic Dyspnea on exertion chronic Essential hypertension chron ic Hyperlipemia chronic Presence of stent in coronary artery March, [facility] Work Phone: 1(926) 450-429001-01-2017 Evaluation note* Diagnosis Onset Date Resolution Status History of non-ST elevation myocardial infarction (NSTEMI) acute Essential hypertension chron ic Hyperlipemia chronic Hypothyroidism chronic Presence of stent in coronary artery March, chronic Type 2 diabetes mellitus chr [facility] Work Phone: 1(854) 435-269601-01-2017 Evaluation note* Diagnosis Onset Date Resolution Status History of non-ST elevation myocardial infarction (NSTEMI) acute Essential hypertension chron ic Hyperlipemia chronic Hypothyroidism chronic Presence of stent in coronary artery March, chronic Type 2 diabetes mellitus chr onic Dyspnea on exertion acute Atherosclerotic heart diseas e [place] coronary artery without angina pectoris chronic Essential hypertension chron ic Hyperlipemia chronic Presence of stent in coronary artery March, [facility] Work Phone: [phone]) 349-740701-01-2017 Evaluation note* Diagnosis Onset Date Resolution Status History of non-ST elevation myocardial infarction (NSTEMI) acute Essential hypertension chron ic Hyperlipemia chronic Hypothyroidism chronic Presence of stent in coronary artery March, chronic Type 2 diabetes mellitus chr onic Atherosclerotic heart diseas e [place] coronary artery without angina pectoris chronic Dyspnea on exertion chronic Essential hypertension chron ic Hyperlipemia chronic Presence of stent in coronary artery March, chronic Atherosclerotic heart diseas e of [place] coronary artery without angina pectoris chronic Dyspnea on exertion chronic Essential hypertension chron ic Hyperlipemia chronic Presence of stent in coronary artery March, [facility] Work Phone: Discharge summary Author Masoud Hahn-Shawn [facility] Note Date/Time September 07, 2024 3:16 am [facility] Medical Records Department [facility] [place] [address] Emergency Department Summary 09/07/24 MR#: [id number] Acct: [id number] Name: FELICITAS ALCANTARA Rep #:[id number] 01 : 1950 73 From: Masoud costa DO PCP: Dr. Harish Noel MD Status:REG ER Location: ED HPI History of Present Illness Chief Complaint: Chest Pain Narrative Narrative: Chief complaint and HPI: Chest pain. 73-year-old female with past medical history of DM2, CAD with history of CABG and PCI, HTN, HLD, DVT secondary to , previous tobacco abuse presents for evaluation of chest pain. Patient states she developed intermittent chest pain yesterday that worsened approximately 2 hours ago. She describes it as pressure and left-sided. Does not radiate down the arm or into the neck/jaw. States that her last OK was 7 years ago and cannot remember if this feels similar. Patient states that she has been having exertional dyspnea in which she has had an extensive workup. States that she has an appointment to see Dr. Woo in the office next month césar current doctor is concerned that her dyspnea is secondary to CAD. She took Tylenol prior to arrival for her pain. She denies any fever, chills, URI symptoms, cough, abdominal pain, nausea, vomiting, bilateral lower extremity pain or edema. Review of systems: See HPI Medications: As listed on the chart Allergies: As listed on the chart PFSH: Per chart Vital signs: As listed on the chart. Reviewed. Physical exam: Gen: A&O x3, NAD Head: Normocephalic, atraumatic Eyes: No sclera icterus, conjunctiva clear ENT: Moist mucous membranes Neck: Trachea midline, No JVD CV: RRR, no murmurs, no peripheral edema Resp: Lungs CTA BL, no w/r/c GI: Abd soft, non-distended, non-tender, no r/r/g Musc: Full ROM, no deformity Skin: Warm, dry Neuro: Alert, oriented, grossly intact, sensation intact Psych: Cooperative, appropriate mood and affect [facility] Medical History Morbid obesity with BMI of 40.0-44.9, adult History of left heart catheterization (LHC) (~09/05/21) Abnormal nuclear stress test Dyspnea on exertion Mass of lip Elevated WBC count History of DVT (deep vein thrombosis) Presence of stent in coronary artery (~04/10/16) History of non-ST elevation myocardial infarction (NSTEMI) Cardiogenic shock Type 2 diabetes mellitus Atherosclerotic heart disease of [place] coronary artery without angina pectoris Essential hypertension Carpal tunnel syndrome Hyperlipemia Hypertension Hypothyroidism History of pneumonia IBS (irritable bowel syndrome) Diabetes Home Medications ?Medication ?Instructions ?Recorded ?Last Taken ?Type blood-glucose sensor (Dexcom G7 #1 ea 01/20/24 Unknown Rx Sensor device) carvedilol 25 mg tablet 25 mg PO BID blood pressure #60 04/15/24 Unknown Rx tabs insulin NPH-regular 70-30 U-100 See Rx Instructions gillette bcut 08/17/24 Unknown Rx insulin 100 unit/mL subcutaneous .COMPLEX #15 mL pen (Novolin 70-30 FlexPen U-100 Insulin) albuterol sulfate 90 mcg/actuation 2 puff inhalation Q 6H PRN 09/07/24 Unknown History aerosol inhaler shortness of breath or wheez ing levothyroxine 112 mcg tablet 112 mcg PO DAILY 09/07/24 Unknown History Allergy/AdvReac Type Severity Reaction Status Date / Time alogliptin Allergy Hives Verified 09/07/24 00:14 dulaglutide (From Trulicity) Allergy Hives Verified 09/07/24 00:14 glipizide Allergy Hives Verified 09/07/24 00:14 metformin Allergy Hives Verified 09/07/24 00:14 Penicillins (PCN) Allergy Hives Verified 09/07/24 00:14 aspirin AdvReac Severe blood Verified 09/07/24 00:14 clots canagliflozin (From Invokana) AdvReac Severe abdominal Verified 09/07/24 00:14 pain Family History Sister Breast cancer Mother Hypertension Heart disease Myocardial infarction, Onset Age: 61 Thyroid disorder Grandmother Arthritis Seizures Father CVA (cerebral vascular accident) Brother Heart disease Myocardial infarction Sister CAD (coronary artery disease) Surgical History Hx of heart bypass surgery History of coronary artery bypass surgery (~11/23/21) History of excision of mass (~07/2020) Presence of coronary angioplasty implant and graft (~04/10/16) History of tubal ligation History of hysterectomy History of tonsillectomy Social History household members: none Smoking Status: Former smoker how long ago did patient quit smokin12/2015 alcohol intake: never substance use type: does not use caffeine: Yes Type: coffee Number of servings: 1 frequency: 1-2 times per week EXAM Physical Exam Const Vital Signs: 09/07/24 00:11 09/07/24 00:14 09/07/24 00:17 Temperature 98.1 F Temperature Source Oral Pulse Rate 67 72 Respiratory Rate 17 21 H Respiratory Effort Short of Breath Blood Pressure 144/63 H Blood Pressure Mean 90 Pulse Ox 93 95 Oxygen Delivery Method Room Air 09/07/24 00:30 09/07/24 00:34 09/07/24 00:37 Temperature Temperature Source Pulse Rate 74 75 66 Respiratory Rate 18 18 20 H Respiratory Effort Blood Pressure 137/75 H Blood Pressure Mean 90 Pulse Ox 95 93 92 Oxygen Delivery Method 09/07/24 00:49 09/07/24 00:49 09/07/24 01:04 Temperature Temperature Source Pulse Rate 75 70 Respiratory Rate 19 H 16 Respiratory Effort Blood Pressure 148/64 H 148/64 H Blood Pressure Mean 85 85 Pulse Ox 94 94 Oxygen Delivery Method Room Air 09/07/24 01:05 09/07/24 01:06 09/07/24 01:10 Temperature Temperature Source Pulse Rate 73 73 69 Respiratory Rate 14 14 Respiratory Effort Blood Pressure 137/65 H 137/65 H 123/53 H Blood Pressure Mean 86 74 Pulse Ox 92 92 Oxygen Delivery Method Room Air 09/07/24 01:15 09/07/24 01:30 09/07/24 01:45 Temperature Temperature Source Pulse Rate 65 73 Respiratory Rate 14 23 H Respiratory Effort Blood Pressure 107/58 L 118/75 112/63 Blood Pressure Mean 73 87 75 Pulse Ox 92 94 89 Oxygen Delivery Method 09/07/24 02:00 Temperature Temperature Source Pulse Rate 69 Respiratory Rate 15 Respiratory Effort Blood Pressure Blood Pressure Mean Pulse Ox 94 Oxygen Delivery Method MDM MDM MDM Narrative Medical decision making narrative: 73-year-old female with past medical history of DM2, CAD with history of CABG and PCI, HTN, HLD, DVT secondary to , previous tobacco abuse presents for evaluation of chest pain. Onset intermittently yesterday but worsened over the past 2 hours. Has taken Tylenol. Differential diagnosis includes but is not limited to ACS, CHF, PE, pleurisy, electrolyte abnormality. On chart review, patient has not seen cardiology since 01/28/2023. 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 She states she will no longer be going to this casino supervisor instead has an appointment with Dr. Woo next month. Patient's last echocardiogram on chart review was 08/2021 with an EFof 65%. Her last stress test was in April 2024 which was negative. Aspirin was originally ordered for patient's chest pain however on chart review she has a listed as an allergy for blood clots. I did speak with the patient about this. She states that aspirin caused significant bleeding in the past for her that required admission but no blood clots. She declined the aspirin although given the risks versus benefits. Will give nitro sublingual instead. Cardiac workup ordered. EKG and chest x-ray reviewed see below. CBC with mild leukocytosis of 14.1, however on chart review this appears to be about patient'sbaseline. No anemia. Platelets unremarkable. Coagulation panel unremarkable. D-dimer unremarkable. BMP unremarkable except for hyperglycemia. Patient has ahistory of diabetes. No anion gap. BNP unremarkable. Troponin 21 and 19. On reevaluation, patient's chest pain has improved with nitroglycerin. Patient's heart score is 6 which places her at moderate risk. She just had a unremarkablestress test in April in which the plan was cardiology follow-up for possible heart cath. She is scheduled to see Dr. Woo next month. Cardiology consulted and patient discussed with Dr. Woo. Plan is for admission for cardiac catheterization. Patient will be admitted to the hospitalist service. Patient confirmed understanding of the plan. EKG: Interpreted by me/EM physician: EKG shows normal sinus rhythm with known right bundle branch block. No acute ischemic changes. Heart rate 72. Similar to previous EKG in April. Diagnostic: Interpreted by me/EM physician: Chest x-ray without pneumonia, effusion, pneumothorax. Enlarged cardiac silhouette per radiology. Impression: 1. Chest pain 2. Hyperglycemia with history of diabetes Lab Data Labs: Laboratory Results - last 24 hr 09/07/24 09/07/2409/07/25 00:15 01:54 02:15 WBC 14.1 H RBC 4.70 Hgb 13.9 Hct 43.2 MCV 91.9 MCH 29.6 MCHC 32.2 RDW Std Deviation 44.1 H RDW Coeff of Eveline 13.1 Plt Count 272 MPV 11.6 Immature Gran % (Auto) 0.600 Neut % (Auto) 80.9 H Lymph % (Auto) 11.3 L [place] % (Auto) 5.1 Eos % (Auto) 1.6 Baso % (Auto) 0.5 Absolute Neuts (auto) 11.4 H Absolute Lymphs (auto) 1.59 Nucleated RBC % 0 PT 13.5 INR 1.0 APTT 25.3 D-Dimer Quant (PE/DVT) < 0.27 L Sodium 136 Potassium 4.5 Chloride 98 Carbon Dioxide 26.1 Anion Gap 12 BUN 13 Creatinine 0.86 Est GFR (MDRD) Non-Af 72 BUN/Creatinine Ratio 15.2 Glucose 232 H Calcium 9.5 Troponin T High Sens 21 H Troponin T Hi Sens 2 Hr 19 H NT pro BNP II 619 POC Glucose 210 H Radiography Diagnostic Testing: Clinical Impression(s) from Imaging Studies Chest X-Ray 09/07/24 01:00 IMPRESSION: No evidence for acute abnormality. Reading Location: [place] [address] Discharge Plan Triage Chief Complaint: Chest Pain ED Provider: Masoud Ospina Dx/Rx/DC Orders Prescriptions: No Action levothyroxine 112 mcg tablet 112 mcg PO DAILY albuterol sulfate 90 mcg/actuation HFA aerosol inhaler 2 puff inhalation Q6H PRN (Reason: shortness of breath or wheezing) (DME) Dexcom G7 Sensor Device See Rx Instructions .Route Qty: 1 10RF Rx Instructions: As directed carvedilol 25 mg tablet 25 mg PO BID Qty: 60 11RF Rx Instructions: must administer with a meal/food Novolin 70-30 FlexPen U-100 100 unit/mL (70-30) insulin pen See Rx Instructions subcut .COMPLEX Qty: 15 5RF Rx Instructions: subcutaneously; 28 units each AM (Breakfast) and 32 units each PM (Supper). Primary Care Provider: Harish Noel Referrals: Harish Noel MD [Primary Care Provider] - Print Language: [place] What to do if you have Problems For any increased pain, shortness of breath, bleeding, nausea or vomiting, chestpain, or any unexpected problems, contact your Primary Care Provider. Call [facility] ([phone]) or report to the closest Emergency Room. Call 911 if necessary. 09/07/24 0316 <Electronically signed by Masoud Ospina DO> Cosigner Signature (if applicable): CC: Dr. Harish Noel MD ~ Signed [facility] Work Phone: Evaluation + Plan note Future Appointments Appointment Date:11/21/2021 02:00:00 PM Scheduled Provider:POLLY PHILIPPE MD Location:[facility] Appointment Type:CTS [facility] Evaluation + Plan note Future Appointments Appointment Date:12/05/2021 10:00:00 AM Scheduled Provider:JUAN JUAREZ Location:[facility] Appointment Type:[facility] Post Op [facility] Evaluation + Plan note Future Appointments Appointment Date:12/27/2021 01:00:00 PM Scheduled Provider:JUAN JUAREZ Location:[facility] Appointment Type:CTS [facility] Post Op Follow Up Future Scheduled Tests Laboratory* Basic Metabolic Panel 12/01/21 Radiology* XR Chest 2 Views (PA & Lateral) 12/27/21 * XR Chest 2 Views (PA & Lateral) 12/19/21 [facility] Evaluation note* Diagnosis Onset Date Resolution Status Atherosclerotic heart diseas e of [place] coronary artery without angina pectoris chronic Dyspnea on exertion chronic Essential hypertension chron ic Hyperlipemia chronic Presence of stent in coronary artery March, [facility] Work Phone: Evaluation note* Diagnosis Onset Date Resolution Status Atherosclerotic heart diseas e of [place] coronary artery without angina pectoris chronic Dyspnea on exertion chronic Essential hypertension chron ic Hyperlipemia chronic History of coronary artery bypass surgery November, 022 acute Atherosclerotic heart diseas e of [place] coronary artery without angina pectoris chronic Essential hypertension chron ic Hyperlipemia chronic Hypothyroidism chronic IBS (irritable bowel syndrome) chronic Presence of stent in coronary artery March, chronic Type [address]ic [facility] Work Phone: History and physical note* [place], CAROLINE Suggs: PERFORM, MODIFY Event Display: History and Physical Update Authored Date: [id number] [facility] Hospital course Narrative No data available for this section [facility] Hospital Discharge instructions No data available for this section [facility] Hospital Discharge instructions Additional Instructions Apply cream as prescribed and return for any worsening of symptoms.[facility] Work Phone: Progress note No data available for this section [facility] Summary Purpose Family History Relationship Condition Age at Onset Recorded Date/T ob[place] sister Malignant neoplasm of breast Unknown mother Hypertension Unknown Cardiac disease Unknown Myocardial infarction 61 Disorder of thyroid Unknown grandmother Arthritis Unknown Seizure Unknown father Cerebrovascular accident (CVA) Unknown brother Cardiac disease Unknown Myocardial infarction Unknown sister Coronary artery disease Unknown Advance Directives Advance Directive Response Recorded Date/ Time Living Will No April 25 12:33pm Power of Edger Automatic No April 25, 2021 12:33pm Advance Directive Response Recorded Date/ Time Advance Directives No September 05 7:52am Living Will No September 05, 2021 7:52am Power of Edger Automatic No September 05 2 7:52am Advance Directive Response Recorded Date/ Time Advance Directives No September 05 7:52am Living Will No September 08, 2021 12:28pm Power of Edger Automatic No September 08 12:28pm Advance Directive Response Recorded Date/ Time Advance Directives No September 05 7:52am Living Will No November 05 2:17am Power of Edger Automatic No November 05 2:17am Advance Directive Response Recorded Date/ Time Advance Directives No September 05 6:52am Living Will No January 21 3:59pm Power of Edger Automatic No January 21, 2022 3:59pm Advance Directive Response Recorded Date/ Time Advance Directives No September 05 7:52am Living Will No January 21 4:59pm Power of Edger Automatic No January 21, 2022 4:59pm Advance Directive Response Recorded Date/ Time Advance Directives No September 05 7:52am Living Will No July 28, 2022 1 :12pm Power of Edger Automatic No July 28, 2022 1:12pm Advance Directive Response Recorded Date/ Time Living Will No January 14 1:05pm Do you have a Healthcare Power of Edger Automatic? No January 15, 2024 1:05pm Living Will No April 29, 10:02pm Do you have a Healthcare Power of Edger Automatic? No April 29, 2024 10:02pm Advance Directives No January 15, 2024 1:05pm Advance Directive Response Recorded Date/ Time Living Will No January 14 1:05pm Do you have a Healthcare Power of Edger Automatic? No January 15, 2024 1:05pm Do you have a Healthcare Power of Edger Automatic? No September 07, 2024 12:14am Advance Directives No January 15, 2024 1:05pm [...] Dyspnea on exertion Atherosclerotic heart disease of [place] coronary artery without angina pectoris Essential hypertension [...] Dyspnea on exertion Atherosclerotic heart disease of [place] coronary artery without angina pectoris Essential hypertension [...] 2 diabetes mellitus Atherosclerotic heart disease of [place] coronary artery without angina pectoris Dyspnea on exertion Essential hypertension Hyperlipemia Presence of stent in coronary artery Atherosclerotic heart disease of [place] coronary artery without angina pectoris Dyspnea on [...] 2 diabetes mellitus Atherosclerotic heart disease of [place] coronary artery without angina pectoris Dyspnea on exertion Essential hypertension Hyperlipemia Presence of stent in coronary artery Atherosclerotic heart disease of [place] coronary artery without angina pectoris Dyspnea on exertion Essential hypertension Hyperlipemia Presence of stent in coronary artery Chief Complaint SOB, HX OF CAD *MOOD ISPAW* SOB, HX OF CAD *MOODISPAW* DYSPNEA DYSPNEA Update H&P for cath 09/05 [facility] CORONA/ ABN STRESS CORONA/ ABN STRESS headache, chills CHEST PAIN Reason for Visit Atherosclerotic hear t disease of [place] coronary artery without angina pectoris Dyspnea on [...] artery bypass surgery Atherosclerotic heart disease of [place] coronary artery without angina pectoris Dyspnea on [...] artery bypass surgery Atherosclerotic heart disease of [place] coronary artery without angina pectoris Dyspnea on exertion Essential hypertension Hyperlipemia Presence of stent in coronary artery Chief Complaint 3 M FU 4 M FU Reason for Visit Atherosclerotic hear t disease of [place] coronary artery without angina pectoris Dyspnea on exertion Essential hypertension Hyperlipemia History of coronary artery bypass surgery Atherosclerotic heart disease of [place] coronary artery without angina pectoris Essential hypertension Hyperlipemia Hypothyroidism IBS (irritable bowel syndrome) Presence of stent in coronary artery Type 2 diabetes mellitus Chief Complaint 3 M FU 4 M FU HEADACHE, RASH Reason for Visit Atherosclerotic hear t disease of [place] coronary artery without angina pectoris Dyspnea on exertion Essential hypertension Hyperlipemia History of coronary artery bypass surgery Atherosclerotic heart disease of [place] coronary artery without angina pectoris Essential hypertension [...] Presence of stent in coronary artery Feb ruary 2024 8:28pm Fatigue July 02, 2024 12: 52pm Atherosclerotic heart diseas e of [place] coronary artery without angina pectoris July 02, 2024 12:52pm Essential hypertension July 02, 2024 12:52pm Hyperlipemia July 02, 2024 12: 52pm Hypothyroidism July 02, 2024 12: 52pm Type 2 diabetes mellitus July 02 12:52pm Chest pain July 02, 2024 12: 52pm Chief Complaint Admit Date 6 M FU July 02, 2024 12: 52pm E-ORDER July 16, 2024 9:32am CHEST PAIN September 07, 2024 3:58 am Reason for Visit Admit Date Fatigue July 02, 2024 12: 52pm Atherosclerotic heart diseas e of [place] coronary artery without angina pectoris July 02, 2024 12:52pm Essential hypertension July 02, 2024 12:52pm Hyperlipemia July 02, 2024 12: 52pm Hypothyroidism July 02, 2024 12: 52pm Type 2 diabetes mellitus July 02 12:52pm Chest pain July 02, 2024 12: 52pm Chest pain September 07, 2024 3:58 am History of left heart catheterization (L HC) September 07, 2024 3:58am Leukocytosis September 07, 2024 3:58 am Morbid obesity with BMI of 40.0-44.9, ad ult September 07, 2024 3:58am Presence of stent in coronary artery Rob e 2024 3:58am Coronary artery disease September 07, 2024 3:58am Hypertension September 07, 2024 3:58 am Additional Source Comments INFORMATION SOURCE (unrecogn ized section and content) DATE CREATED AUTHOR 09/11/2017 [employer] DATE CREATED AUTHOR AUTHOR'S ORGANIZ ATION 12/28/2021 [employer] ([place]) DATE CREATED AUTHOR AUTHOR'S ORGANIZ ATION 07/24/2024 [place] [facility] Goals (unrecognized section and content) Goals may [...] P4 Physician - Cardiothoracic Surgery Address: Address: [address] [place] [address] [place] [address]- Name: HARISH NOEL MD Member Role: Primary Care Physician Address: Address: [address] [place] [address]- Name: FORREST JEWELL MD Address: Address: [address] [place] [address]- Care Team Related Persons Name: KATHERINE HOFFMANN Name: TIARRA, KATHYA Care Team Personnel Name: POLLY PHILIPPE MD Position: P4 Physician - Cardiothoracic Surgery Med Service: Active Provider Member Role: Cardiothoracic Surgeon Address: Address: [address] [place] [address] [place] [place] [address]- Name: HARISH NOEL MD Member Role: Primary Care Physician Address: Address: [address] [place] [address]- Name: FORREST JEWELL MD Member Role: Metaphysician Address: Address: [address] [place] [address]- Care Team Related Persons Name: CHRISTINE MOSS Name: KATHERINE HOFFMANN Name: TIARRA KATHYA Care Team Personnel Name: POLLY PHILIPPE MD Position: P4 Physician - Cardiothoracic Surgery Med Service: Active Provider Member Role: Cardiothoracic Surgeon Address: Address: [address] [place] [address] [place] [place] [address]- Name: HARISH NOEL MD Member Role: Primary Care Physician Address: Address: [address] [place] [address]- Name: FORREST JEWELL MD Member Role: Metaphysician Address: Address: [address] [place] [address]- Care Team Related Persons Name: CHRISTINE MOSS Name: KATHERINE HOFFMANN Name: TIARRA KATHYA Care Team Personnel Name: POLLY PHILIPPE MD Position: P4 Physician - Cardiothoracic Surgery Med Service: Active Provider Member Role: Cardiothoracic Surgeon Address: Address: [address] [place] [address] [place] [address]- [place] Name: HARISH NOEL MD Member Role: Primary Care Physician Address: Address: [address] [facility] [address] [place] [address]- Name: FORREST JEWELL MD Member Role: Metaphysician Address: Address: [address] [facility] [address] [place] [address]- [place] Care Team Related Persons Name: CHRISTINE [...] Provider, Referri ng Provider Active Rustam Francois SAP BW BI DEVELOPER, SAP BW BI DEVELOPER-C Attending Provider Active Team Status: Inactive Member Role Status Dates Dr. Harish Noel MD Primary Care Provider Active Rustam Francois SAP BW BI DEVELOPER, SAP BW BI DEVELOPER-C Attending Provider, Referring Pro vider Active Team [...] Start: April 30, 2024 Dr. Polly Lomeli , DO Admit Provider Active Start: April 30, 2024 Dr. Polly Lomeli , Other Provider Active Start: April 30, 2024 [...] July 16, 2024 End: July 16, 2024 Team Status: Active Member Role Status Dates Dr. Harish Noel MD Primary Care Provider Active Start: September 07, 2024 Dr. Masoud Ospina DO Emergency Provider Activ e Start: September 07, 2024 Dr. Polly Lomeli DO Admit Provider Active Start: September 07, 2024 Dr. Polly Lomeli DO Attending Provider Active Start: September 07, 2024 FOR RECORDS PERTAINING TO PATIENTS WHO [...] BE BASED ON THE PRIMARY CLINICAL RECORDS. [facility] [employer] provides no warranty or guarantee of the accuracy or completeness of information in this document.
--- OUTSIDE RECORDS SUMMARY | 2024-09-07 04:54 | XMS RPT_ITS | CCD ---
Author Organization [facility] CliniSyky Care Team Providers Care Furniture Fabricator Name Role Phone VON ABARCA Unavailable Unavailable SAADIA HERNANDEZ Unavailable Unavailable SAADIA HERNANDEZ Unavailable Unavailable Dr. Harish Noel Primary Care Provider Dr. Harish Noel Attending Provider [phone] Dr. Harish Noel Referring Provider Roof GRINDER AND HONER OPERATOR AUTOMATIC, GRINDER [employer] HONER OPERATOR AUTOMATIC-C Rustam Garza Attending Provider Roof GRINDER [employer] HONER OPERATOR AUTOMATIC, GRINDER AND HONER OPERATOR AUTOMATIC-C Rustam Garza Referring Provider Roof GRINDER [employer] HONER OPERATOR AUTOMATIC, GRINDER AND HONER OPERATOR AUTOMATIC-C Rustam Garza Other Provider [phone])[phone] Forrest Jewell Attending Provider Dr. Jose Cotton Attending Provider Dr. Forrest Jewell Referring Provider Dr. Forrest Jewell Other Provider [phone])[phone] Harish Noel Primary Care Provider Dr. Harish Noel Referring Provider [phone]([facility])[phone] Roof GRINDER [employer] HONER OPERATOR AUTOMATIC, GRINDER AND HONER OPERATOR AUTOMATIC-C Rustam Garza Attending Provider HARISH NOEL MD [...] MD Attending Unavailable BERT DAY, [facility] Primary Care Unavailable JOSE MARTIN MCARTHUR, POLLY Suggs Admitting Unavailable JOSE MARTIN MCARTHUR, POLLY Suggs Consulting Unavailable GERARDO MCARTHUR, DOLORES Consulting Unavailable JASMYN MCARTHUR, NIHAD Consulting Unavailable SAMUEL MANRIQUEZ MD, CHRIS Consulting Unavailable KELLEE MCARTHUR, GAGE Consulting Unavailanish PHILIPPE MD, POLLY Suggs Attending Unavailable BERT MCARTHUR., [facility] Primary Care Unavailable Dr. Harish Noel Primary Care Provider Aminah Prado Attending Provider Unavailable Dr. Harish Noel Attending Provider [phone] Dr. Harish Noel Referring Provider [phone] Roof GRINDER AND HONER OPERATOR AUTOMATIC, GRINDER AND HONER OPERATOR AUTOMATIC-C Rustam Garza Attending Provider Jairo Vogel Attending Provider Unavailable Dr. Harish Noel Primary Care Provider Aminah Prado Attending Provider Unavailable Dr. Harish Noel Attending Provider [phone] Dr. Harish Noel Referring Provider [phone] Roof GRINDER AND HONER OPERATOR AUTOMATIC, GRINDER AND HONER OPERATOR AUTOMATIC-C Rustam Garza Attending Provider Jairo Vogel Attending Provider Unavailable Dr. Harish Noel Primary Care Provider Dr. Harish Noel Referring Provider [phone] Roof GRINDER AND HONER OPERATOR AUTOMATIC, GRINDER AND HONER OPERATOR AUTOMATIC-C Rustam Garza Attending Provider Dr. Harish Noel Attending Provider [phone] Dr. Harish Noel MD Primary Care Provider Dr. Sly Blanco DO Referring Provider Dr. Sly Blanco DO Emergency Provider Lomeli DO, Dr. Marquez Admit Provider Unavail able Dr. Polly Lomeli DO Other Provider Unavail able Dr. Nathan Torres DO Attending Provider Anthony MCARTHUR, Dr. aNtarajan Attending Provider Dr. Polly Lomeli DO Referring [...] Attending Unavailable Bert, Harish Primary Care Unavailable Betr, Harish Attending Unavailable Bert, Harish Primary Care Unavailable Bert, Harish Attending Unavailable Bert, Harish Primary Care Unavailable Bert, Harish Attending Unavailable Bert, Harish Primary Care Unavailable Schwignacia, Nathan Attending Unavailable Bert MCARTHUR, Dr. Chin Primary Care Provider [phone] SelmaDr. Masoud Escobar DO Emergency Provider Dr. Polly Lomeli DO Admit Provider Unavail able Dr. Polly Lomeli DO Attending Provider Unav ailable Allergies Allergy Classification Reported Allergen(s) Allergy Type Date of Onset Reaction(s) Facility (16 sources) alogliptin; Translations: [alogliptin] Drug Allergy 06-17-19 22 Weal (disorder) [facility] Cardiothoracic Surgery (16 sources) Aspirin; Translations: [aspirin] Drug Allergy 06-17-19 blood clots [facility] [place] (12 sources) canagliflozin Drug Allergy 06-17-19 abdominal pain [facility] (12 sources) dulaglutide Drug Allergy 06-17-19 [facility] (16 sources) glipiZIDE; Translations: [glipizide] Drug Allergy 06-17-19 [facility] (14 sources) levothyroxine; Translations: [levothyroxine] Drug Allergy 06-17-19 Eruption of skin (disorder), Diarrhea (finding) [facility] Cardiothoracic Surgery (16 sources) metFORMIN; Translations: [metformin] Drug Allergy 06-17-19 Hives, Diarrhea [facility] [place] (13 sources) Penicillins; Translations: [Penicillins] Allergy to substance 06-17-19 [facility] (4 sources) canagliflozin; Translations: [canagliflozin] Drug Allergy Stomach Pains, Diarrhea [facility] [place] (4 sources) dulaglutide; Translations: [dulaglutide] Drug Allergy [facility] (4 sources) HMG-CoA reductase inhibitor; Translations: [statins] Drug allergy [facility] (4 sources) Penicillin; Translations: [penicillins] Drug Allergy [facility] (1 source) alogliptin Drug Allergy 07-03-19 [facility] Repository (1 source) Aspirin Drug Allergy 07-03-19 [facility] Repository (1 source) canagliflozin Drug Allergy 07-03-19 [facility] Repository (1 source) dulaglutide Drug Allergy 07-03-19 [facility] Repository (1 source) glipiZIDE Drug Allergy 07-03-19 [facility] Repository (1 source) metFORMIN Drug Allergy 07-03-19 [facility] Repository Medications Current Medications Medication Drug Class(es) Dates Sig (Normalized) Sig (Original) [id number] 200 actuat albuterol 0.09 mg/actuat metered dose [...] 15 mL, 3 Refill(s), Pharmacy: [facility], 157.2, cm, 01/21/20 14:13:00 EST, Height, kg, [...] # 25 tab(s), 3 Refill(s), Pharmacy: [facility], 157.5, cm, 08/31/19 16:27:00 EDT, Height, [...] 2020 1:00am May 11, 2020 12:16pm thyroid (jail) 60 mg oral tablet (20 sources) Start: 06-16-2021 End: 05-16-2022 take 1 tablet by mouth once daily Thyroid (Pork) (Kent Thyroid) 60 mg tablet Discontinued 60 mg [...] sources) I25.10 - Atherosclerotic heart disease of [place] coronary artery without angina pectoris,R07.9 - Chest [...] Auto (Unsp spec) [#/Vol] 1.59 10*3/uL 0.83-4.51 [facility] Absolute neutrophil countOrd ered By: Masoud Ospina on 09-07-2024 Neutrophils (Bld) [#/Vol] 11.4 10*3/uL High 2.0-7.7 [facility] Activated partial thrombopla stin time (aPTT) in platelet poor plasma by coagulation aOrdered By: Masoud Ospina on 09-07-2024 aPTT Coag (PPP) [Time] 25.3 s 24.1-36.2 [facility] Anion gap in Serum or Plasma Ordered By: Masoud Ospina on 09-07-2024 Anion gap [Moles/Vol] 12 mmol/L 5-15 [facility] Automated lymphocyte count a s percentage of total leukocytesOrdered By: Masoud Ospina on 09-07-2024 Lymphocytes/100 WBC Auto (Unsp spec) 11.3 % Low 19-41 [facility] BUN/creatinine ratioOrdered By: Masoud Ospina on 09-07-2024 Urea nitrogen/Creatinine [Mass ratio] 15.2 mg/mg 10-20 [facility] Basophil percentageOrdered B y: Masoud Ospina on 09-07-2024 Basophils/100 WBC (Bld) 0.5 % 0-1 [facility] Carbon dioxide, total [Moles /volume] in Central venous bloodOrdered By: Masoud Ospina on 09-07-2024 CO2 [Moles/Vol] 26.1 mmol/L 21.0-32.0 [facility] Chloride assayOrdered By: Rodolfo Ospina on 09-07-2024 Chloride [Moles/Vol] 98 mmol/L 98-108 [facility] Eosinophil percentageOrdered By: Masoud Ospina on 09-07-2024 Eosinophils/100 WBC (Bld) 1.6 % 0-5 [facility] Erythrocyte distribution wid th ratioOrdered By: Masoud Ospina on 09-07-2024 Erythrocyte distribution width (RBC) [Ratio] 13.1 % 11.6-14.6 [facility] Erythrocyte distribution wid th standard deviationOrdered By: Masoud Escobar on 09-07-2024 Erythrocyte distribution width (RBC) [Ratio] 44.1 fl High 35.1-43.9 [facility] Glomerular filtration rate ( GFR) estimation/1.73 sq m using serum, plasma, or whole bOrdered By: Masoud Ospina on 09-07-2024 GFR/1.73 sq M.predicted among non-blacks MDRD (S/P/Bld) [Vol rate/Area] 72 mL/min/{1.73_m2} >60 [facility] Comment on above: mL/min/1.73m2 CKD-EP I Creatinine Equation (2020) Glucose measurement at bedsi deOrdered By: Masoud Ospina on 09-07-2024 Glucose [Mass/Vol] 210 mg/dL High 74-106 [facility] Comment on above: MANAGEMENT OF PATIEN T CARE PER NURSING PROTOCOL Hematocrit Auto (Bld) [Volum e fraction]Ordered By: Masoud Ospina on 09-07-2024 Hematocrit (Bld) [Volume fraction] 43.2 % 37-47 [facility] Hemoglobin measurementOrdere d By: Masoud Ospina on 09-07-2024 Hemoglobin (Bld) [Mass/Vol] 13.9 g/dL 12.0-15.0 [facility] Immature granulocytes/100 WB C Auto (Bld)Ordered By: Masoud Ospina on 09-07-2024 Immature granulocytes/100 WBC (Bld) 0.600 % 0.0-0.9 [facility] Comment on above: IG% - Immature Granu locytes (promyelocytes, myelocytes and metamyelocytes) > 1% indicates that a LEFT SHIFT is Present. International normalized rat io (INR) calculationOrdered By: Masoud Ospina on 09-07-2024 INR Coag (Bld) [Relative time] 1.0 {INR} [facility] MCV (mean corpuscular volume ) determinationOrdered By: Masoud Ospina on 09-07-2024 MCV (RBC) [Entitic vol] 91.9 fL 81-99 [facility] Mean corpuscular hemoglobin (MCH) determinationOrdered By: Masoudjena Ospina on 09-07-2024 MCH (RBC) [Entitic mass] 29.6 pg 27.0-32.0 [facility] Mean corpuscular hemoglobin concentration (MCHC) determinationOrdered By: Masoud Ospina on 09-07-2024 MCHC (RBC) [Mass/Vol] 32.2 g/dL 32-36 [facility] Mean platelet volume determi nationOrdered By: Masoudjena Ospina on 09-07-2024 Platelet mean volume (Bld) [Entitic vol] 11.6 fL 6.2-12.0 [facility] Monocyte percentageOrdered B y: Masoud Ospina on 09-07-2024 Monocytes/100 WBC (Bld) 5.1 % 0-10 [facility] Natriuretic peptide.B prohor don N-Terminal [Mass/volume] in Serum or PlasmaOrdered By: Masoud Ospina on 09-07-2024 Natriuretic peptide.B prohormone N-Terminal [Mass/Vol] 619 pg/mL <900 [facility] Comment on above: Heart Failure Unlike ly: < 300 pg/mLHeart Failure Likely< 50 Years: > 450 pg/mL50-75 Years: > 900 pg/mL>75 Years: > 1800 pg/mL Neutrophil percentageOrdered By: Masoud Ospina on 09-07-2024 Neutrophils/100 WBC (Bld) 80.9 % High 47-70 [facility] Nucleated red blood cell per centageOrdered By: Masoud Ospina on 09-07-2024 Nucleated RBC/100 WBC (Bld) [Ratio] 0 % 0-5 [facility] Platelet countOrdered By: Rodolfo Ospina on 09-07-2024 Platelets (Bld) [#/Vol] 272 10*3/uL 150-450 [facility] Potassium measurement (mass/ volume)Ordered By: Masoud Ospina on 09-07-2024 Potassium (Unsp spec) [Mass/Vol] 4.5 mmol/L 3.3-5.1 [facility] Prothrombin timeOrdered By: Masoud Ospina on 09-07-2024 PT Coag (PPP) [Time] 13.5 s 11.7-14.9 [facility] RBC Auto (Bld) [#/Vol]Ordere d By: Masoud Ospina on 09-07-2024 RBC (Bld) [#/Vol] 4.70 10*6/uL 4.2-5.4 [facility] Serum creatinine measurement (mass/volume)Ordered By: Masoud Ospina on 09-07-2024 Creatinine [Mass/Vol] 0.86 mg/dL 0.70-1.20 [facility] Serum glucose measurement (m ass/volume)Ordered By: Masoud Ospina on 09-07-2024 Glucose [Mass/Vol] 232 mg/dL High 70-99 [facility] Serum or plasma calcium betsy urement (mass/volume)Ordered By: Masoud Escobar on 09-07-2024 Calcium [Mass/Vol] 9.5 mg/dL 7.6-11.0 [facility] Serum or plasma urea nitroge n measurement (mass/volume)Ordered By: Masoud Ospina on 09-07-2024 Urea nitrogen [Mass/Vol] 13 mg/dL 4-19 [facility] Sodium levelOrdered By: Jermaine Ospina on 09-07-2024 Sodium [Moles/Vol] 136 mmol/L 133-145 [facility] Troponin T.cardiac [Mass/vol ume] in Serum or Plasma by High sensitivity methodOrdered By: Masoud Ospina on 09-07-2024 Troponin T.cardiac High sensitivity method [Mass/Vol] 19 ng/L High <14 [facility] Comment on above: Hemolysis present, R esults could be affected. Troponin T.cardiac High sensitivity method [Mass/Vol] 21 ng/L High <14 [facility] White blood cell (WBC) count Ordered By: Masoud [facility] on 09-07-2024 WBC (Bld) [#/Vol] 14.1 10*3/uL High 4.4-11.0 [facility] Anion gap in Serum or Plasma Ordered By: Harish Noel on 07-16-2024 Anion gap [Moles/Vol] 11 mmol/L 5-15 [facility] BUN/creatinine ratioOrdered By: Harish Noel on 07-16-2024 Urea nitrogen/Creatinine [Mass ratio] 18.8 mg/mg 10-20 [facility] Bilirubin, totalOrdered By: Harish Noel on 07-16-2024 Bilirubin [Mass/Vol] 0.73 mg/dL 0.00-1.30 [facility] Carbon dioxide, total [Moles /volume] in Central venous bloodOrdered By: Harish Noel on 07-16-2024 CO2 [Moles/Vol] 26.7 mmol/L 21.0-32.0 [facility] Chloride assayOrdered By: Madison Noel on 07-16-2024 Chloride [Moles/Vol] 97 mmol/L Low 98-108 [facility] Comprehensive Metabolic Prof ilon 07-16-2024 Albumin [Mass/Vol] 3.8 g/dL Normal 3.4-4.8 [facility] Comment on above: Performed By: #### L 501.9985, L501.95514, L500.4050, L501.9520, L503.0106, L501.5200, L506.1001, L506.0400 ####[facility] [address] [place], [address] Albumin/Globulin [Mass ratio] 1.2 {ratio} Normal 0.9-2.4 [facility] Comment on above: Performed By: #### L 501.9985, L501.62603, L500.4050, L501.9520, L503.0106, L501.5200, L506.1001, L506.0400 ####[facility] [address] [place], [address] ALK PHOS 94 U/L Normal 35-104 [facility] Comment on above: Performed By: #### L [id number], L501.80521, L500.4050, L501.9520, L503.0106, L501.5200, L506.1001, L506.0400 ####[facility] [address] [place], [place], [phone]) ALT [Catalytic activity/Vol] 12 U/L Normal <=34 [facility] Comment on above: Performed By: #### L 501.9985, L501.35445, L500.4050, L501.9520, L503.0106, L501.5200, L506.1001, L506.0400 ####[facility] [address] [place], [place], [phone] AST [Catalytic activity/Vol] 16 U/L Normal <=31 [facility] Comment on above: Performed By: #### L 501.9985, L501.83052, L500.4050, L501.9520, L503.0106, L501.5200, L506.1001, L506.0400 ####[facility] [address] [place], [address] Bilirubin [Mass/Vol] 0.73 mg/dL Normal 0.00-1.30 [facility] Comment on above: Performed By: #### L 501.9985, L501.23717, L500.4050, L501.9520, L503.0106, L501.5200, L506.1001, L506.0400 ####[facility] [address] [place], [address] BUN/CRE 18.8 RATIO Normal 10-20 [facility] Comment on above: Performed By: #### L 501.9985, L501.40135, L500.4050, L501.9520, L503.0106, L501.5200, L506.1001, L506.0400 ####[facility] [address] [place], [address] Calcium [Mass/Vol] 9.1 mg/dL Normal 7.6-11.0 [facility] Comment on above: Performed By: #### L 501.9985, L501.55214, L500.4050, L501.9520, L503.0106, L501.5200, L506.1001, L506.0400 ####[facility] [address] [place], [address] Chloride [Moles/Vol] 97 mmol/L Low 98-108 [facility] Comment on above: Performed By: #### L 501.9985, L501.41479, L500.4050, L501.9520, L503.0106, L501.5200, L506.1001, L506.0400 ####[facility] [address] [place], [address] CO2 [Moles/Vol] 26.7 mmol/L Normal 21.0-32.0 [facility] Comment on above: Performed By: #### L 501.9985, L501.54522, L500.4050, L501.9520, L503.0106, L501.5200, L506.1001, L506.0400 ####[facility] [address] [place], [place], [phone](675) Creatinine [Mass/Vol] 0.84 mg/dL Normal 0.70-1.20 [facility] Comment on above: Performed By: #### L 501.9985, L501.92360, L500.4050, L501.9520, L503.0106, L501.5200, L506.1001, L506.0400 ####[facility] [address] [place], [place], [phone](812) GAP 11 Normal 5-15 [facility] Comment on above: Performed By: #### L 501.9985, L501.81233, L500.4050, L501.9520, L503.0106, L501.5200, L506.1001, L506.0400 ####[facility] [address] [place], [address](042) GFR/1.73 sq M.predicted among non-blacks MDRD (S/P/Bld) [Vol rate/Area] 74 mL/min/{1.73_m2} Normal >60 [facility] Comment on above: Result Comment: mL/m in/1.73m2 CKD-EPI Creatinine Equation (2020) Performed By: #### L 501.9985, L501.52938, L500.4050, L501.9520, L503.0106, L501.5200, L506.1001, L506.0400 ####[facility] [address] [place], [place], [phone](078) Globulin (S) [Mass/Vol] 3.3 g/dL Normal 2.2-4.2 [facility] Comment on above: Performed By: #### L 501.9985, L501.37278, L500.4050, L501.9520, L503.0106, L501.5200, L506.1001, L506.0400 ####[facility] [address] [place], [place], [phone](288) Glucose [Mass/Vol] 253 mg/dL High 70-99 [facility] Comment on above: Performed By: #### L 501.9985, L501.32649, L500.4050, L501.9520, L503.0106, L501.5200, L506.1001, L506.0400 ####[facility] [address] [place], [address] Potassium [Moles/Vol] 4.5 mmol/L Normal 3.3-5.1 [facility] Comment on above: Performed By: #### L 501.9985, L501.95531, L500.4050, L501.9520, L503.0106, L501.5200, L506.1001, L506.0400 ####[facility] [address] [place], [place], [phone](474) Sodium [Moles/Vol] 134 mmol/L Normal 133-145 [facility] Comment on above: Performed By: #### L 501.9985, L501.69538, L500.4050, L501.9520, L503.0106, L501.5200, L506.1001, L506.0400 ####[facility] [address] [place], [place], [phone](134) T PROT 7.1 g/dL Normal 5.9-8.4 [facility] Comment on above: Performed By: #### L 501.9985, L501.19473, L500.4050, L501.9520, L503.0106, L501.5200, L506.1001, L506.0400 ####[facility] [address] [place], [address] Urea nitrogen [Mass/Vol] 16 mg/dL Normal 4-19 [facility] Comment on above: Performed By: #### L 501.9985, L501.78185, L500.4050, L501.9520, L503.0106, L501.5200, L506.1001, L506.0400 ####[facility] [address] [place], [place], [id number] Free T3on 07-16-2024 Free T3 [Mass/Vol] 2.8 pg/mL Normal 2.18-3.98 [facility] Comment on above: Performed By: #### L 501.9985, L501.76468, L500.4050, L501.9520, L503.0106, L501.5200, L506.1001, L506.0400 ####[facility] [address] [place], [place], [address] Free R6Qdunvjo By: Harish garza on 07-16-2024 Free T3 [Mass/Vol] 2.8 pg/mL 2.18-3.98 [facility] Free Triiodothyronine (T3) pg/dL 2.8 pg/mL 2.18-3.98 [facility] GFR/1.73 sq M.predicted domenico g non-blacks MDRD (S/P/Bld) [Vol rate/Area]Ordered By: Harish Noel on 07-16-2024 Estimated GFR (MDRD) Non-Af Amer 74 >60 [facility] Comment on above: mL/min/1.73m2 CKD-EP I Creatinine Equation (2020) Glomerular filtration rate ( GFR) estimation/1.73 sq m using serum, plasma, or whole bOrdered By: Harish Noel on 07-16-2024 GFR/1.73 sq M.predicted among non-blacks MDRD (S/P/Bld) [Vol rate/Area] 74 mL/min/{1.73_m2} >60 [facility] Comment on above: mL/min/1.73m2 CKD-EP I Creatinine Equation (2020) Hemoglobin A1con 07-16-2024 HbA1c (Bld) [Mass fraction] 9.6 % High <=5.6 [facility] Comment on above: Result Comment: Norm al < 5.7 % Prediabetic 5.7 - 6.4 % Diabetic >or= 6.5 % Please note range changes. Performed By: #### L 501.9985, L501.16917, L500.4050, L501.9520, L503.0106, L501.5200, L506.1001, L506.0400 #### [facility] Laboratory [address] [place], [address] Hemoglobin A1c percentageOrd ered By: Harish Noel on 07-16-2024 HbA1c (Bld) [Mass fraction] 9.6 % High <5.7 [facility] Comment on above: Normal < 5.7 % Predi abetic 5.7 - 6.4 % Diabetic >or= 6.5 % Please note range changes. Laboratory - Chemistry and C hemistry - challengeOrdered By: Harish Noel on 07-16-2024 AST [Catalytic activity/Vol] 16 U/L <32 [facility] Magnesiumon 07-16-2024 Magnesium [Mass/Vol] 2.0 mg/dL Normal 1.5-2.2 [facility] Comment on above: Performed By: #### L 501.9985, L501.72833, L500.4050, L501.9520, L503.0106, L501.5200, L506.1001, L506.0400 ####[facility] [address] [place], [address] Magnesium (Unsp spec) [Mass/ Vol]Ordered By: Harish Noel on 07-16-2024 Magnesium [Mass/Vol] 2.0 mg/dL 1.5-2.2 [facility] Magnesium measurement (mass/ volume)Ordered By: Harish Noel on 07-16-2024 Magnesium (Unsp spec) [Mass/Vol] 2.0 mg/dL 1.5-2.2 [facility] Potassium (Unsp spec) [Mass/ Vol]Ordered By: Harish Noel on 07-16-2024 Potassium [Moles/Vol] 4.5 mmol/L 3.3-5.1 [facility] Potassium measurement (mass/ volume)Ordered By: Harish Noel on 07-16-2024 Potassium (Unsp spec) [Mass/Vol] 4.5 mmol/L 3.3-5.1 [facility] Serum creatinine measurement (mass/volume)Ordered By: Harish Noel on 07-16-2024 Creatinine [Mass/Vol] 0.84 mg/dL 0.70-1.20 [facility] Serum globulin measurementOr dered By: Harish Noel on 07-16-2024 Globulin (S) [Mass/Vol] 3.3 g/dL 2.2-4.2 [facility] Serum glucose measurement (m ass/volume)Ordered By: Harish Noel on 07-16-2024 Glucose [Mass/Vol] 253 mg/dL High 70-99 [facility] Serum or plasma alanine nova otransferase (ALT) measurementOrdered By: Harish Noel on 07-16-2024 ALT [Catalytic activity/Vol] 12 U/L <35 [facility] Serum or plasma albumin betsy urement (mass/volume)Ordered By: Harish Noel on 07-16-2024 Albumin [Mass/Vol] 3.8 g/dL 3.4-4.8 [facility] Serum or plasma albumin/glob ulin mass ratioOrdered By: Harish Noel on 07-16-2024 Albumin/Globulin [Mass ratio] 1.2 {ratio} 0.9-2.4 [facility] Serum or plasma alkaline maritza sphatase measurementOrdered By: Harish Noel on 07-16-2024 ALP [Catalytic activity/Vol] 94 U/L 35-104 [facility] Serum or plasma calcium betsy urement (mass/volume)Ordered By: Harish Noel on 07-16-2024 Calcium [Mass/Vol] 9.1 mg/dL 7.6-11.0 [facility] Serum or plasma urea nitroge n measurement (mass/volume)Ordered By: Harish Noel on 07-16-2024 Urea nitrogen [Mass/Vol] 16 mg/dL 4-19 [facility] Sodium levelOrdered By: Ida Noel on 07-16-2024 Sodium [Moles/Vol] 134 mmol/L 133-145 [facility] T4 Free Directon 07-16-2024 T4 FREE DIRECT 0.90 ng/dL Normal 0.76-1.46 [facility] Comment on above: Performed By: #### L 501.9985, L501.45402, L500.4050, L501.9520, L503.0106, L501.5200, L506.1001, L506.0400 ####[facility] [address] [place], [place], [id number] T4 freeOrdered By: Harish garza on 07-16-2024 Free T4 [Mass/Vol] 0.90 ng/dL 0.76-1.46 [facility] TSH DL <= 0.005 mIU/L QnOrde red By: Harish Noel on 07-16-2024 Thyroid Stimulating Hormone (TSH) 8.170 uIU/mL High 0.300-4.200 [facility] TSH Qn 8.170 uIU/mL High 0.300-4.200 [facility] Thyroid Stim Hormone (TSH)on 07-16-2024 TSH 8.170 uIU/mL High 0.300-4.200 [facility] Comment on above: Performed By: #### L 501.9985, L501.59080, L500.4050, L501.9520, L503.0106, L501.5200, L506.1001, L506.0400 ####[facility] [address] [place], [place], [id number] Total proteinOrdered By: Sharon Noel on 07-16-2024 Protein [Mass/Vol] 7.1 g/dL 5.9-8.4 [facility] Vitamin B12on 07-16-2024 Cobalamin (Vitamin B12) [Mass/Vol] 193 pg/mL Normal 180-914 [facility] Comment on above: Performed By: #### L 501.9985, L501.51647, L500.4050, L501.9520, L503.0106, L501.5200, L506.1001, L506.0400 ####[facility] [address] [place], [address] Vitamin B12 ser/plasOrdered By: Harish Noel on 07-16-2024 Cobalamin (Vitamin B12) [Mass/Vol] 193 pg/mL 180-914 [facility] Vitamin D, 25-hydroxyOrdered By: Harish Noel on 07-16-2024 Vitamin D 25-Hydroxy 12.9 ng/mL Low 30-100 [facility] Comment on above: Vitamin D StatusDefi ciency: <20 ng/mL (50nmol/L)Insufficiency: 20-30 ng/mL (50-75 nmol/L)Sufficiency: 30-100 ng/mL (75-250 nmol/L)Toxicity: >100 ng/mL (>250 nmol/L) Vitamin D,25 Hydroxyon 07-16 Vitamin D 25-OH 12.9 ng/mL Low 30-100 [facility] Comment on above: Result Comment: Lucy min D Status Deficiency: <20 ng/mL (50nmol/L) Insufficiency: 20-30 ng/mL (50-75 nmol/L) Sufficiency: 30-100 ng/mL (75-250 nmol/L) Toxicity: >100 ng/mL (>250 nmol/L) Performed By: #### L 501.9985, L501.52688, L500.4050, L501.9520, L503.0106, L501.5200, L506.1001, L506.0400 ####[facility] [address] [place], [address] MR/BMS.IMBon 07-02-2024 MR/BMS.IMB [facility] [address] [place] [address] OFFICE VISIT Date of Service: 07/02/24 MR#: [id number] Acct: [id number] Name: FELICITAS ALCANTARA Rep #: [id number] : 1950 Provider: Dr. Harish jose MD Age/Sex: 73/F Location: [facility] [place].IMB Status: Signed Intake Vital Signs 01/16/24 12:59 [...] room air Intake Visit Reasons: 6 M Registered Nurse Practitioner Required: No Accompanied by: Self Is patient [...] you fallen in the past year?: No [facility] Medical History Morbid obesity with BMI of 40.0-44.9, adult History of left heart catheterization (LHC) ( 09/05/21) Abnormal nuclear stress test Dyspnea on exertion Mass of lip Elevated WBC count History of DVT (deep vein thrombosis) Presence of stent in coronary artery ( 04/10/16) History of non-ST elevation myocardial infarction (NSTEMI) Cardiogenic shock Type 2 diabetes mellitus Atherosclerotic heart disease of [place] coronary artery without angina pectoris Essential hypertension [...] times per week HPI HPI Details: FELICITAS ALCANTARA, is a 73 F [...] 70/30 regimen initially started by endocrinology in [place]. She is intolerant to 5 major classes [...] more test (more content not included)... Normal [facility] 12 Lead EKGon 04-30-2024 12 Lead EKG [facility] [address] [place] [address] 12 Lead EKG 04/29/24 2259 MR#: [id number] Acct: [id number] Name: FELICITAS ALCANTARA Rep #: [id number] : 1950 73 From: Delgado Cruz MD Attending Dr: Dr. Nathan Torres DO Status: DIS RUBINA Ordering Dr: Polly Lomeli DO Date: 04/30/24 Location: [facility] Sex: F C Admitted: 04/29/24 Test Reason [...] UNCONFIRMED Confirmed by ANTHONY MCARTHUR, ADELA ([id number]), editorial intern ALLA LAINEZ ([id number]) on 05/01/2024 1:04:57 PM Referred By: Sly Blanco Confirmed By: ADELA CRUZ MD 05/01/24 1304 Date Delgado Cruz MD CC: Dr. Polly Lomeli DO; Dr. Nathan Torres DO; Dr. Harish Noel MD; Dr. Sly Blanco DO Signed [facility] Absolute neutrophil countOrd ered By: Polly Herr on 04-30-2024 Neutrophils (Bld) [#/Vol] 16.1 10*3/uL High 2.0-7.7 [facility] Albumin to globulin ratioOrd ered By: Polly Herr on 04-30-2024 Albumin/Globulin [Mass ratio] 0.8 {ratio} Low 0.9-2.4 [facility] Automated blood erythrocyte countOrdered By: Polly Herr on 04-30-2024 RBC (Bld) [#/Vol] 5.60 10*6/uL High 4.2-5.4 [facility] Comment on above: Performed By: #### L 501.5200, L501.2300, L500.4050, L100.0100 ####[facility] [address] [place], [address] Automated blood hematocrit ( percentage)Ordered By: Polly Herr on 04-30-2024 Hematocrit (Bld) [Volume fraction] 49.8 % High 37-47 [facility] Comment on above: Performed By: #### L 501.5200, L501.2300, L500.4050, L100.0100 ####[facility] [address] [place], [address] Automated lymphocyte count a s percentage of total leukocytesOrdered By: Polly Herr on 04-30-2024 Lymphocytes/100 WBC (Bld) 7.1 % Low 19-41 [facility] Comment on above: Performed By: #### L 501.5200, L501.2300, L500.4050, L100.0100 ####[facility] [address] [place], [address] Basophil percentageOrdered B y: Polly Herr on 04-30-2024 Basophils/100 WBC (Bld) 0.6 % Normal 0-1 [facility] Comment on above: Performed By: #### L 501.5200, L501.2300, L500.4050, L100.0100 ####[facility] [address] [place], [address] Bedside Glucoseon 04-30-2024 FINGERSTICK GLU 307 mg/dL High [address] [place] [address] Comment on above: Result Comment: RIMMA GEMENT OF PATIENT CARE PER NURSING PROTOCOL Performed By: #### L 100.0100, L500.2500, L300.8000, L501.4020 #### [facility] Laboratory [address] [place], [address] FINGERSTICK GLU 399 mg/dL High [address] [place] [address] Comment on above: Result Comment: RIMMA GEMENT OF PATIENT CARE PER NURSING PROTOCOL Performed By: #### L 501.080 ####[facility] [address] [place], [address] FINGERSTICK GLU 404 mg/dL High [address] [place] [address] Comment on above: Result Comment: RIMMA GEMENT OF PATIENT CARE PER NURSING PROTOCOL Performed By: #### L 100.0100, L500.2500, L300.8000, L501.4020 #### [facility] [address] [place], [address] FINGERSTICK GLU 365 mg/dL High [address] [place] [address] Comment on above: Result Comment: RIMMA GEMENT OF PATIENT CARE PER NURSING PROTOCOL Performed By: #### L 100.0100, L500.2500, L300.8000, L501.4020 #### [facility] [address] [place], [address] FINGERSTICK GLU 245 mg/dL High [address] [place] [address] Comment on above: Result Comment: RIMMA GEMENT OF PATIENT CARE PER NURSING PROTOCOL Performed By: #### L 100.0100, L500.2500, L300.8000, L501.4020 #### [facility] [address] [place], [address] Bilirubin, totalOrdered By: Polly Herr on 04-30-2024 Bilirubin [Mass/Vol] 1.10 mg/dL High 0.20-1.00 [facility] Comment on above: For patients on eltr ombopag therapy, use of [place] TBIL is not recommended. Blood urea nitrogen (BUN)/cr eatinine ratioOrdered By: Polly Herr on 04-30-2024 Urea nitrogen/Creatinine [Mass ratio] 17.6 mg/mg 10-20 [facility] CBC W/Diff, Automatedon 04-18 Absolute Lymph 1.26 X10 3/uL Normal 0.83-4.51 [facility] Comment on above: Performed By: #### L 501.5200, L501.2300, L500.4050, L100.0100 ####[facility] [address] [place], [address] Absolute Neut 16.1 X10 3/uL High 2.0-7.7 [facility] Comment on above: Performed By: #### L 501.5200, L501.2300, L500.4050, L100.0100 ####[facility] [address] [place], [address] IG% 1.200 High 0.0-0.9 [facility] Comment on above: Result Comment: IG% - Immature Granulocytes (promyelocytes, myelocytes and metamyelocytes) > 1% indicates that a LEFT SHIFT is Present. Performed By: #### L 501.5200, L501.2300, L500.4050, L100.0100 ####[facility] [address] [place], [address] Nucleated RBC (Bld) [#/Vol] 0 10*3/uL Normal 0-5 [facility] Comment on above: Performed By: #### L 501.5200, L501.2300, L500.4050, L100.0100 ####[facility] [address] [place], [address] RDW SD 43.2 fl Normal 35.1-43.9 [facility] Comment on above: Performed By: #### L 501.5200, L501.2300, L500.4050, L100.0100 ####[facility] [address] [place], [address] Carbon dioxide measurementOr dered By: Polly Herr on 04-30-2024 CO2 [Moles/Vol] 25.0 mmol/L 21.0-32.0 [facility] Chloride measurementOrdered By: Polly Herr on 04-30-2024 Chloride [Moles/Vol] 100 mmol/L 98-107 [facility] Comprehensive Metabolic Prof ilon 04-30-2024 Albumin [Mass/Vol] 3.8 g/dL Normal 3.2-5.0 [facility] Comment on above: Performed By: #### L 501.5200, L501.2300, L500.4050, L100.0100 ####[facility] [address] [place], [address] Albumin/Globulin [Mass ratio] 0.8 {ratio} Low 0.9-2.4 [facility] Comment on above: Performed By: #### L 501.5200, L501.2300, L500.4050, L100.0100 ####[facility] [address] [place], [address] ALK P 116 U/L Normal 45-117 [facility] Comment on above: Performed By: #### L 501.5200, L501.2300, L500.4050, L100.0100 ####[facility] [address] [place], [address] ALT [Catalytic activity/Vol] 19 U/L Normal 13-56 [facility] Comment on above: Performed By: #### L 501.5200, L501.2300, L500.4050, L100.0100 ####[facility] [address] [place], [address] AST [Catalytic activity/Vol] 15 U/L Normal 15-37 [facility] Comment on above: Performed By: #### L 501.5200, L501.2300, L500.4050, L100.0100 ####[facility] [address] [place], [address] Bilirubin [Mass/Vol] 1.10 mg/dL High 0.20-1.00 [facility] Comment on above: Result Comment: For patients on eltrombopag therapy, use of [place] TBIL is not recommended. Performed By: #### L 501.5200, L501.2300, L500.4050, L100.0100 ####[facility] [address] [place], [address] BUN/CRE 17.6 RATIO Normal 10-20 [facility] Comment on above: Performed By: #### L 501.5200, L501.2300, L500.4050, L100.0100 ####[facility] [address] [place], [address] CA,Total 10.4 mg/dL High 8.5-10.1 [facility] Comment on above: Performed By: #### L 501.5200, L501.2300, L500.4050, L100.0100 ####[facility] [address] [place], [address] Chloride [Moles/Vol] 100 mmol/L Normal 98-107 [facility] Comment on above: Performed By: #### L 501.5200, L501.2300, L500.4050, L100.0100 ####[facility] [address] [place], [address] CO2 [Moles/Vol] 25.0 mmol/L Normal 21.0-32.0 [facility] Comment on above: Performed By: #### L 501.5200, L501.2300, L500.4050, L100.0100 ####[facility] [address] [place], [address] Creatinine [Mass/Vol] 1.08 mg/dL High 0.55-1.02 [facility] Comment on above: Result Comment: The validity of the calculated GFR GFRAA in patients over 70 years has not been determined. Clinical correlation is essential. Performed By: #### L 501.5200, L501.2300, L500.4050, L100.0100 ####[facility] [address] [place], [address] ECRCL 52.31 ml/min Normal [facility] Comment on above: Performed By: #### L 501.5200, L501.2300, L500.4050, L100.0100 ####[facility] [address] [place], [address] EST GFR - AA 64 mL/min Normal >60 [facility] Comment on above: Result Comment: Afri can Spanish GFR Calc Performed By: #### L 501.5200, L501.2300, L500.4050, L100.0100 ####[facility] [address] [place], [address] GAP 13 Normal 5-15 [facility] Comment on above: Performed By: #### L 501.5200, L501.2300, L500.4050, L100.0100 ####[facility] [address] [place], [address] GFR/1.73 sq M.predicted among non-blacks MDRD (S/P/Bld) [Vol rate/Area] 53 mL/min/{1.73_m2} Low >60 [facility] Comment on above: Result Comment: Non- GFR Calc Performed By: #### L 501.5200, L501.2300, L500.4050, L100.0100 ####[facility] [address] [place], [address] Globulin (S) [Mass/Vol] 4.6 g/dL High 2.2-4.2 [facility] Comment on above: Performed By: #### L 501.5200, L501.2300, L500.4050, L100.0100 ####[facility] [address] [place], [address] Glucose [Mass/Vol] 352 mg/dL High 74-106 [facility] Comment on above: Result Comment: Gluc ose result greater than or equal to 200 mg/dL suggests DIABETES MELLITUS per A.D.A. criteria. Performed By: #### L 501.5200, L501.2300, L500.4050, L100.0100 ####[facility] [address] [place], [address] Potassium [Moles/Vol] 4.4 mmol/L Normal 3.5-5.1 [facility] Comment on above: Performed By: #### L 501.5200, L501.2300, L500.4050, L100.0100 ####[facility] [address] [place], [address] Sodium [Moles/Vol] 137 mmol/L Normal 136-145 [facility] Comment on above: Performed By: #### L 501.5200, L501.2300, L500.4050, L100.0100 ####[facility] [address] [place], [address] T PROT 8.4 g/dL High 6.4-8.2 [facility] Comment on above: Performed By: #### L 501.5200, L501.2300, L500.4050, L100.0100 ####[facility] [address] [place], [address] Urea nitrogen [Mass/Vol] 19 mg/dL High 7-18 [facility] Comment on above: Performed By: #### L 501.5200, L501.2300, L500.4050, L100.0100 ####[facility] [address] [place], [place], [address] Eosinophil percentageOrdered By: Polly Herr on 04-30-2024 Eosinophils/100 WBC (Bld) 0.0 % Normal 0-5 [facility] Comment on above: Performed By: #### L 501.5200, L501.2300, L500.4050, L100.0100 ####[facility] [address] [place], [address] Erythrocyte distribution wid th (RBC) [Ratio]Ordered By: Polly Herr on 04-30-2024 Erythrocyte distribution width (RBC) [Entitic vol] 43.2 fL 35.1-43.9 [facility] Erythrocyte distribution wid th ratioOrdered By: Polly Herr on 04-30-2024 Erythrocyte distribution width (RBC) [Ratio] 13.3 % Normal 11.6-14.6 [facility] Comment on above: Performed By: #### L 501.5200, L501.2300, L500.4050, L100.0100 ####[facility] [address] [place], [place], [address] Estimated glomerular filtrat ion rate (GFR) AmericanOrdered By: Polly Herr on 04-30-2024 Estimated GFR (MDRD) Amer 64 mL/min >60 [facility] Comment on above: GFR Calc Estimation of creatinine keo aranceOrdered By: Polly Herr on 04-30-2024 Estimated Creatinine Clearance Calc 52.31 ml/min [facility] Glomerular filtration rate ( GFR) estimationOrdered By: Polly Herr on 04-30-2024 Estimated GFR (MDRD) Non-Af Amer 53 mL/min Low >60 [facility] Comment on above: Non- GFR Calc Glucose measurementOrdered B y: Polly Herr on 04-30-2024 Glucose [Mass/Vol] 352 mg/dL High 74-106 [facility] Comment on above: Glucose result great er than or equal to 200 mg/dLsuggests DIABETES MELLITUS per A.D.A. criteria. [facility] deOrdered By: Nathan Torres on 04-30-2024 Bedside Glucose (Misc Panel) 307 mg/dL High 74-106 [facility] Comment on above: MANAGEMENT OF PATIEN T CARE PER NURSING PROTOCOL Hemoglobin measurementOrdere d By: Polly Herr on 04-30-2024 Hemoglobin (Bld) [Mass/Vol] 16.3 g/dL High 12.0-15.0 [facility] Comment on above: Performed By: #### L 501.5200, L501.2300, L500.4050, L100.0100 ####[facility] [address] [place], [place], [address] Immature granulocytes/100 WB C Auto (Bld)Ordered By: Polly Herr on 04-30-2024 Immature granulocytes/100 WBC (Bld) 1.200 % High 0.0-0.9 [facility] Comment on above: IG% - Immature Granu locytes (promyelocytes, myelocytes and metamyelocytes) > 1% indicates that a LEFT SHIFT is Present. Laboratory - Chemistry and C hemistry - challengeOrdered By: Polly Herr on 04-30-2024 AST [Catalytic activity/Vol] 15 U/L 15-37 [facility] Lymphocytes Auto (Unsp spec) [#/Vol]Ordered By: Polly Herr on 04-30-2024 Lymphocytes (Bld) [#/Vol] 1.26 10*3/uL 0.83-4.51 [facility] MCV (mean corpuscular volume ) determinationOrdered By: Polly Herr on 04-30-2024 MCV (RBC) [Entitic vol] 88.9 fL Normal 81-99 [facility] Comment on above: Performed By: #### L 501.5200, L501.2300, L500.4050, L100.0100 ####[facility] [address] [place], [place], [address] Magnesiumon 04-30-2024 Magnesium [Mass/Vol] 2.1 mg/dL Normal 1.6-2.6 [facility] Comment on above: Performed By: #### L 501.5200, L501.2300, L500.4050, L100.0100 ####[facility] [address] [place], [address] Magnesium measurementOrdered By: Polly Herr on 04-30-2024 Magnesium [Mass/Vol] 2.1 mg/dL 1.6-2.6 [facility] Mean corpuscular hemoglobin (MCH) determinationOrdered By: Polly Herr on 04-30-2024 MCH (RBC) [Entitic mass] 29.1 pg Normal 27.0-32.0 [facility] Comment on above: Performed By: #### L 501.5200, L501.2300, L500.4050, L100.0100 ####[facility] [address] [place], [address] Mean corpuscular hemoglobin concentration (MCHC) determinationOrdered By: Polly Herr on 04-30-2024 MCHC (RBC) [Mass/Vol] 32.7 g/dL Normal 32-36 [facility] Comment on above: Performed By: #### L 501.5200, L501.2300, L500.4050, L100.0100 ####[facility] [address] [place], [address] Mean platelet volume determi nationOrdered By: Polly Herr on 04-30-2024 Platelet mean volume (Bld) [Entitic vol] 10.6 fL Normal 6.2-12.0 [facility] Comment on above: Performed By: #### L 501.5200, L501.2300, L500.4050, L100.0100 ####[facility] [address] [place], [address] Monocyte percentageOrdered B y: Polly Herr on 04-30-2024 Monocytes/100 WBC (Bld) 0.5 % Normal 0-10 [facility] Comment on above: Performed By: #### L 501.5200, L501.2300, L500.4050, L100.0100 ####[facility] [address] [place], [address] Neutrophil percentageOrdered By: Polly Herr on 04-30-2024 Neutrophils/100 WBC (Bld) 90.6 % High 47-70 [facility] Comment on above: Performed By: #### L 501.5200, L501.2300, L500.4050, L100.0100 ####[facility] [address] [place], [address] Nucleated red blood cell per centageOrdered By: Polly Herr on 04-30-2024 Nucleated RBC/100 WBC (Bld) [Ratio] 0 % 0-5 [facility] Phosphoruson 04-30-2024 Phosphate [Mass/Vol] 3.7 mg/dL Normal 2.5-4.9 [facility] Comment on above: Performed By: #### L 501.5200, L501.2300, L500.4050, L100.0100 ####[facility] [address] [place], [address] Phosphorus measurementOrdere d By: Polly Herr on 04-30-2024 Phosphorus Level 3.7 mg/dL 2.5-4.9 [facility] Platelet countOrdered By: Mane Herr on 04-30-2024 Platelets (Bld) [#/Vol] 328 10*3/uL Normal 150-450 [facility] Comment on above: Performed By: #### L 501.5200, L501.2300, L500.4050, L100.0100 ####[facility] [address] [place], [address] Potassium measurementOrdered By: Polly Herr on 04-30-2024 Potassium [Moles/Vol] 4.4 mmol/L 3.5-5.1 [facility] Serum anion gap measurementO rdered By: Polly Herr on 04-30-2024 Anion gap [Moles/Vol] 13 mmol/L 5-15 [facility] Serum globulin measurementOr dered By: Polly Herr on 04-30-2024 Globulin (S) [Mass/Vol] 4.6 g/dL High 2.2-4.2 [facility] Serum or plasma alanine nova otransferase (ALT) measurementOrdered By: Polly Herr on 04-30-2024 ALT [Catalytic activity/Vol] 19 U/L 13-56 [facility] Serum or plasma albumin betsy urement (mass/volume)Ordered By: Polly Herr on 04-30-2024 Albumin [Mass/Vol] 3.8 g/dL 3.2-5.0 [facility] Serum or plasma alkaline maritza sphatase measurementOrdered By: Polly Herr on 04-30-2024 ALP [Catalytic activity/Vol] 116 U/L 45-117 [facility] Serum or plasma calcium betsy urement (mass/volume)Ordered By: Polly Herr on 04-30-2024 Calcium [Mass/Vol] 10.4 mg/dL High 8.5-10.1 [facility] Serum or plasma creatinine m easurement (mass/volume)Ordered By: Polly Herr on 04-30-2024 Creatinine [Mass/Vol] 1.08 mg/dL High 0.55-1.02 [facility] Comment on above: The validity of the calculated GFR & GFRAA in patients over 70 years has not been determined. Clinical correlation is essential. Serum or plasma urea nitroge n measurement (mass/volume)Ordered By: Polly Herr on 04-30-2024 Urea nitrogen [Mass/Vol] 19 mg/dL High 7-18 [facility] Sodium levelOrdered By: Neto Herr on 04-30-2024 Sodium [Moles/Vol] 137 mmol/L 136-145 [facility] Stress Reporton 04-30-2024 Stress Report [facility] Cardiovascular Services [address] [place] [address] MR#: [id number] Acct: [id number] Name: FELICITAS ALCANTARA Rep #: [id number] : 1950 73 From: Delgado Cruz MD [...] Dictated: 04/30/24 1146 Date Transcribed: 04/30/24 114 Speedometer Mechanic: NN Signed Normal [facility] Total proteinOrdered By: Frank Herr on 04-30-2024 Protein [Mass/Vol] 8.4 g/dL High 6.4-8.2 [facility] White blood cell (WBC) count Ordered By: Polly Herr on 04-30-2024 WBC (Bld) [#/Vol] 17.7 10*3/uL High 4.4-11.0 [facility] Comment on above: Performed By: #### L 501.5200, L501.2300, L500.4050, L100.0100 ####[facility] [address] [place], [address] 12 Lead EKGon 04-29-2024 12 Lead EKG [facility] Cardiovascular Services [address] [place] [address] 12 Lead EKG 04/30/24 0528 MR#: [id number] Acct: [id number] Name: FELICITAS ALCANTARA Rep #: [id number] : 1950 73 From: Delgado Cruz MD Attending Dr: Dr. Nathan Torres DO Status: DIS RUBINA Ordering Dr: Polly Lomeli DO Date: 04/29/24 Location: [facility] Sex: F C Admitted: 04/29/24 Test Reason [...] ECG Confirmed by ADELA CRUZ MD ([id number]), editorial intern ALLA LAINEZ ([id number]) on 05/01/2024 1:04:01 PM Referred By: Sly Blanco Confirmed By: ADELA CRUZ MD 05/01/24 1304 Date Delgado Cruz MD CC: Dr. Polly Lomeli DO; Dr. Nathan Torres DO; Dr. Harish Noel MD; Dr. Sly Blanco DO Signed Normal [facility] 12 Lead EKG [facility] Cardiovascular Services [address] [place] [address] 12 Lead EKG 04/29/24 1556 MR#: [id number] Acct: [id number] Name: FELICITAS ALCANTARA Rep #: [id number] : 1950 73 From: Delgado Cruz MD Attending Dr: Dr. Nathan Torres DO Status: DIS RUBINA Ordering Dr: Sly Blanco DO Date: 04/29/24 Location: [facility] Sex: F C Admitted: 04/29/24 Test Reason [...] ECG Confirmed by ADELA CRUZ MD ([id number]), editorial intern ALLA LAINEZ ([id number]) on 05/01/2024 1:00:07 PM Referred By: Sly Blanco Confirmed By: ADELA CRUZ MD 05/01/24 1300 Date Delgado Cruz MD CC: Dr. Nathan Torres DO; Dr. Harsih Noel MD; Dr. Sly Blanco DO Signed Normal [facility] Arterial patency Wrist arter y --pre arterial punctureOrdered By: Polly Herr on 04-29-2024 Wagner Test Positive [facility] BNP (brain natriuretic pepti de measurement)Ordered By: Sly Blanco on 04-29-2024 Natriuretic peptide B (Bld) [Mass/Vol] 161.4 pg/mL High 0-100 [facility] BNP,B-Type NATRIURETIC PEPTI Yahaira 04-29-2024 Natriuretic peptide B (Bld) [Mass/Vol] 161.4 pg/mL High 0-100 [facility] Comment on above: Performed By: #### L 100.0100, L500.2500, L300.8000, L501.4020 #### [facility] Laboratory [address] [place], [address] Base excess Calc (BldV) [Mol es/Vol]Ordered By: Polly Herr on 04-29-2024 Blood Gas Base Excess 4 mmol/L High -2-2 [facility] Basic Metabolic Profile (BMP )on 04-29-2024 BUN/CRE 18.2 RATIO Normal 10-20 [facility] Comment on above: Performed By: #### L 100.0100, L500.2500, L300.8000, L501.4020 #### [facility] Laboratory [address] [place], [address] CA,Total 9.6 mg/dL Normal 8.5-10.1 [facility] Comment on above: Performed By: #### L 100.0100, L500.2500, L300.8000, L501.4020 #### [facility] Laboratory [address] [place], [address] Chloride [Moles/Vol] 101 mmol/L Normal 98-107 [facility] Comment on above: Performed By: #### L 100.0100, L500.2500, L300.8000, L501.4020 #### [facility] Laboratory [address] [place], [address] CO2 [Moles/Vol] 26.0 mmol/L Normal 21.0-32.0 [facility] Comment on above: Performed By: #### L 100.0100, L500.2500, L300.8000, L501.4020 #### [facility] Laboratory [address] [place], [address] Creatinine [Mass/Vol] 0.82 mg/dL Normal 0.55-1.02 [facility] Comment on above: Result Comment: The validity of the calculated GFR GFRAA in patients over 70 years has not been determined. Clinical correlation is essential. Performed By: #### L 100.0100, L500.2500, L300.8000, L501.4020 #### [facility] Laboratory [address] [place], [address] ECRCL 70.51 ml/min Normal [facility] Comment on above: Performed By: #### L 100.0100, L500.2500, L300.8000, L501.4020 #### [facility] Laboratory [address] [place], [address] EST GFR - AA 88 mL/min Normal >60 [facility] Comment on above: Result Comment: Afri can Spanish GFR Calc Performed By: #### L 100.0100, L500.2500, L300.8000, L501.4020 #### [facility] Laboratory [address] [place], [address] GAP 9 Normal 5-15 [facility] Comment on above: Performed By: #### L 100.0100, L500.2500, L300.8000, L501.4020 #### [facility] Laboratory [address] [place], [address] GFR/1.73 sq M.predicted among non-blacks MDRD (S/P/Bld) [Vol rate/Area] 73 mL/min/{1.73_m2} Normal >60 [facility] Comment on above: Result Comment: Non- GFR Calc Performed By: #### L 100.0100, L500.2500, L300.8000, L501.4020 #### [facility] Laboratory [address] [place], [address] Glucose [Mass/Vol] 148 mg/dL High 74-106 [facility] Comment on above: Result Comment: Fast ing Glucose result greater than or equal to 126 mg/dL suggests DIABETES MELLITUS per A.D.A. criteria. Performed By: #### L 100.0100, L500.2500, L300.8000, L501.4020 #### [facility] Laboratory [address] [place], [address] Potassium [Moles/Vol] 3.8 mmol/L Normal 3.5-5.1 [facility] Comment on above: Performed By: #### L 100.0100, L500.2500, L300.8000, L501.4020 #### [facility] Laboratory [address] [place], [address] Sodium [Moles/Vol] 136 mmol/L Normal 136-145 [facility] Comment on above: Performed By: #### L 100.0100, L500.2500, L300.8000, L501.4020 #### [facility] Laboratory [address] [place], [address] Urea nitrogen [Mass/Vol] 15 mg/dL Normal 7-18 [facility] Comment on above: Performed By: #### L 100.0100, L500.2500, L300.8000, L501.4020 #### [facility] Laboratory [address] [place], [address] Bilirubin Test strip Ql (U)O rdered By: Sly Blanco on 04-29-2024 Bilirubin Ql (U) Negative Negative [facility] Blood Gases by CPSon 025 WAGNER TEST Positive Normal [facility] Comment on above: Performed By: #### L 100.0100, L500.2500, L300.8000, L501.4020 #### [facility] Laboratory [address] [place], [address] Base excess Calc (Bld) [Moles/Vol] 4 mmol/L High -2 to +2 [facility] Comment on above: Performed By: #### L 100.0100, L500.2500, L300.8000, L501.4020 #### [facility] Laboratory [address] [place], [address] Blood Gas Type ART Normal [facility] Comment on above: Performed By: #### L 100.0100, L500.2500, L300.8000, L501.4020 #### [facility] Laboratory [address] [place], [address] CO2 [Moles/Vol] 28 mmol/L Normal [facility] Comment on above: Performed By: #### L 100.0100, L500.2500, L300.8000, L501.4020 #### [facility] Laboratory [address] [place], [address] HCO3 (Bld) [Moles/Vol] 27.2 mmol/L High 22-26 [facility] Comment on above: Performed By: #### L 100.0100, L500.2500, L300.8000, L501.4020 #### [facility] Laboratory [address] [place], [address] Mode Not entered [facility] Comment on above: Performed By: #### L 100.0100, L500.2500, L300.8000, L501.4020 #### [facility] Laboratory [address] [place], [address] O2 Delivery Dev Room Air Normal [facility] Comment on above: Performed By: #### L 100.0100, L500.2500, L300.8000, L501.4020 #### [facility] Laboratory [address] [place], [address] pCO2 32.8 mmHg Low 35-45 [facility] Comment on above: Performed By: #### L 100.0100, L500.2500, L300.8000, L501.4020 #### [facility] Laboratory [address] [place], [address] pH (Bld) 7.53 [pH] High 7.35-7.45 [facility] Comment on above: Performed By: #### L 100.0100, L500.2500, L300.8000, L501.4020 #### [facility] Laboratory [address] [place], [address] PO2 60 mmHG Low 75-100 [facility] Comment on above: Performed By: #### L 100.0100, L500.2500, L300.8000, L501.4020 #### [facility] Laboratory [address] [place], [address] SITE L Radial Normal [facility] Comment on above: Performed By: #### L 100.0100, L500.2500, L300.8000, L501.4020 #### [facility] Laboratory [address] [place], [address] SO2 94 Low 95-99 [facility] Comment on above: Performed By: #### L 100.0100, L500.2500, L300.8000, L501.4020 #### [facility] Laboratory [address] [place], [address] Blood bicarbonate measuremen tOrdered By: Ploly Herr on 04-29-2024 Blood Gas Bicarbonate Actual 27.2 mmol/L High 22-26 [facility] CBC W/Diff, Automatedon 04-18 Absolute Lymph 1.79 X10 3/uL Normal 0.83-4.51 [facility] Comment on above: Performed By: #### L 100.0100, L500.2500, L300.8000, L501.4020 #### [facility] Laboratory [address] [place], [address] Absolute Neut 11.7 X10 3/uL High 2.0-7.7 [facility] Comment on above: Performed By: #### L 100.0100, L500.2500, L300.8000, L501.4020 #### [facility] Laboratory [address] [place], [address] Basophils/100 WBC (Bld) 0.5 % Normal 0-1 [facility] Comment on above: Performed By: #### L 100.0100, L500.2500, L300.8000, L501.4020 #### [facility] Laboratory [address] [place], [address] Eosinophils/100 WBC (Bld) 2.3 % Normal 0-5 [facility] Comment on above: Performed By: #### L 100.0100, L500.2500, L300.8000, L501.4020 #### [facility] Laboratory [address] [place], [address] Erythrocyte distribution width (RBC) [Ratio] 13.2 % Normal 11.6-14.6 [facility] Comment on above: Performed By: #### L 100.0100, L500.2500, L300.8000, L501.4020 #### [facility] Laboratory [address] [place], [address] Hematocrit (Bld) [Volume fraction] 47.7 % High 37-47 [facility] Comment on above: Performed By: #### L 100.0100, L500.2500, L300.8000, L501.4020 #### [facility] Laboratory [address] [place], [address] Hemoglobin (Bld) [Mass/Vol] 15.2 g/dL High 12.0-15.0 [facility] Comment on above: Performed By: #### L 100.0100, L500.2500, L300.8000, L501.4020 #### [facility] Laboratory [address] [place], [address] IG% 0.600 Normal 0.0-0.9 [facility] Comment on above: Result Comment: IG% - Immature Granulocytes (promyelocytes, myelocytes and metamyelocytes) > 1% indicates that a LEFT SHIFT is Present. Performed By: #### L 100.0100, L500.2500, L300.8000, L501.4020 #### [facility] Laboratory [address] [place], [address] Lymphocytes/100 WBC (Bld) 12.1 % Low 19-41 [facility] Comment on above: Performed By: #### L 100.0100, L500.2500, L300.8000, L501.4020 #### [facility] Laboratory [address] [place], [address] MCH (RBC) [Entitic mass] 28.5 pg Normal 27.0-32.0 [facility] Comment on above: Performed By: #### L 100.0100, L500.2500, L300.8000, L501.4020 #### [facility] Laboratory [address] [place], [address] MCHC (RBC) [Mass/Vol] 31.9 g/dL Low 32-36 [facility] Comment on above: Performed By: #### L 100.0100, L500.2500, L300.8000, L501.4020 #### [facility] Laboratory [address] [place], [address] MCV (RBC) [Entitic vol] 89.5 fL Normal 81-99 [facility] Comment on above: Performed By: #### L 100.0100, L500.2500, L300.8000, L501.4020 #### [facility] Laboratory [address] [place], [address] Monocytes/100 WBC (Bld) 4.9 % Normal 0-10 [facility] Comment on above: Performed By: #### L 100.0100, L500.2500, L300.8000, L501.4020 #### [facility] Laboratory [address] [place], [address] Neutrophils/100 WBC (Bld) 79.6 % High 47-70 [facility] Comment on above: Performed By: #### L 100.0100, L500.2500, L300.8000, L501.4020 #### [facility] Laboratory [address] [place], [address] Nucleated RBC (Bld) [#/Vol] 0 10*3/uL Normal 0-5 [facility] Comment on above: Performed By: #### L 100.0100, L500.2500, L300.8000, L501.4020 #### [facility] Laboratory [address] [place], [address] Platelet mean volume (Bld) [Entitic vol] 10.7 fL Normal 6.2-12.0 [facility] Comment on above: Performed By: #### L 100.0100, L500.2500, L300.8000, L501.4020 #### [facility] Laboratory [address] [place], [address] Platelets (Bld) [#/Vol] 291 10*3/uL Normal 150-450 [facility] Comment on above: Performed By: #### L 100.0100, L500.2500, L300.8000, L501.4020 #### [facility] Laboratory [address] [place], [address] RBC (Bld) [#/Vol] 5.33 10*6/uL Normal 4.2-5.4 [facility] Comment on above: Performed By: #### L 100.0100, L500.2500, L300.8000, L501.4020 #### [facility] Laboratory [address] [place], [address] RDW SD 43.5 fl Normal 35.1-43.9 [facility] Comment on above: Performed By: #### L 100.0100, L500.2500, L300.8000, L501.4020 #### [facility] Laboratory [address] [place], [address] WBC (Bld) [#/Vol] 14.8 10*3/uL High 4.4-11.0 [facility] Comment on above: Performed By: #### L 100.0100, L500.2500, L300.8000, L501.4020 #### [facility] Laboratory [address] [place], [address] Chest 1 View (Portable)on Chest 1 View (Portable) [facility] Imaging Services [address] [place] [address] Chest 1 View (Portable) MR#: [id number] Acct: [id number] Name: FELICITAS ALCANTARA Rep #: [id number] : 1950 F 73 From: Aviva Joyner nd, MD PCP: Dr. Harish Noel MD Status: [facility] ER Study: Chest 1 View (Portable) Date of Exam: 04/29/24 Exam# [id number] Ordering Dr: Sly Blanco DO PROCEDURE: CHEST [...] cardiomegaly. Otherwise unremarkable chest radiograph. Reading Location: [facility] CC: Dr. Harish Noel MD; Dr. 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 Performed By: #### L 100.0100, L500.2500, L300.8000, L501.4020 #### [facility] Laboratory [address] [place], [address] D-dimer measurement for deep venous thrombosisOrdered By: Sly Blanco on 04-29-2024 D-Dimer Quantitative (PE/DVT) < 0.27 FEU/ug/m Low 0.27-0.49 [facility] Comment on above: NORMAL D-Dimer level (<0.50) indicates no DVT or PE. Emergency Department Summary on 04-29-2024 Emergency Department Summary [facility] Medical Records Department [address] [place] [address] Emergency Department Summary 04/29/24 MR#: [id number] Acct: [id number] Name: FELICITAS ALCANTARA Rep #: [id number] : 1950 73 From: Sly Blanco DO PCP: Dr. Harish Noel MD Status:ADM RUBINA Location: [address] History of Present Illness Chief Complaint: Shortness of Breath [facility] Medical History History of left heart catheterization (LHC) ( 09/05/21) Abnormal nuclear stress test Dyspnea on exertion Mass of lip Elevated WBC count History of DVT (deep vein thrombosis) Presence of stent in coronary artery ( 04/10/16) History of non-ST elevation myocardial infarction (NSTEMI) Cardiogenic shock Type 2 diabetes mellitus Atherosclerotic heart disease of [place] coronary artery without angina pectoris Essential hypertension [...] stent, hyperlip (more content not included)... Normal [facility] Epithelial cells.squamous LM Ql (Urine sed)Ordered By: Sly Blanco on 04-29-2024 Epithelial cells.squamous LM.HPF (Urine sed) [#/Area] 0 /[HPF] 5-10 [facility] Glucose Ql (U)Ordered By: Giovanny Blanco on 04-29-2024 Urine Glucose (UA) Normal mg/dl Normal [facility] H AND P Exam - [place] 04-29-2024 H&P Exam - Hospitalist [facility] Medical Records Department [address] [place] [address] H P Exam - Hospitalist 04/29/241935 MR#: [id number] Acct: [id number] Name: FELICITAS ALCANTARA Rep #: [id number] : 1950 73 From: Polly Lomeli DO PCP: Dr. Harish Noel MD Status:ADM RUBINA Location: [address] - General General Date of Admission: 04/29/24 Date of Service: 04/29/24 Chief Complaint: Chest Pain, SOB and Elevated Hypertension. HPI Narrative FELICITAS ALACNTARA, is a 73 F with a past [...] (hives), CTS and OA who presents to [facility] ER complaining of chest pain, [...] expected to be less than 2 midnights. [facility] Medical History History of left heart catheterization (LHC) ( 09/05/21) Abnormal nuclear stress test Dyspnea on exertion Mass of lip Elevated WBC count History of DVT (deep vein thrombosis) Presence of stent in coronary artery ( 04/10/16) History of non-ST elevation myocardial infarction (NSTEMI) Cardiogenic shock Type 2 diabetes mellitus Atherosclerotic heart disease of [place] coronary artery without angina pectoris Essential hypertension [...] of hear (more content not included)... Normal [facility] Hemoglobin A1con 04-29-2024 HbA1c (Bld) [Mass fraction] 9.4 % High 3.8-5.6 [facility] Comment on above: Result Comment: Norm al < 5.7 % Prediabetic 5.7 - 6.4 % Diabetic >or= 6.5 % Please note range changes. Performed By: #### L 100.0100, L500.2500, L300.8000, L501.4020 #### [facility] Laboratory [facility] [place], [address] Hemoglobin A1c percentageOrd ered By: Polly Herr on 04-29-2024 HbA1c (Bld) [Mass fraction] 9.4 % High 3.8-5.6 [facility] Comment on above: Normal < 5.7 % Predi abetic 5.7 - 6.4 % Diabetic >or= 6.5 % Please note range changes. High density lipoprotein (HD L) measurementOrdered By: Polly Herr on 04-29-2024 Cholesterol in HDL [Mass/Vol] 64 mg/dL >40 [facility] Comment on above: The drugs N-Acetylcy steine and Metamizole may falsely depress this assay. Reference Range HDL <40 mg/dL Low HDL Cholesterol HDL >or= 60 mg/dL High HDL Cholesterol Influenza virus A and B and SARS-CoV-2 (COVID-19) and Respiratory syncytial virus RNAOrdered By: Sly Blanco on 04-29-2024 SARS-CoV-2 (COVID-19) RNA SLOAN+probe Ql (Unsp spec) [facility] Ketones Test strip Ql (U)Ord ered By: Sly Blanco on 04-29-2024 Ketones Ql (U) Negative Negative [facility] L501.4020on 04-29-2024 TROPONIN-I HS 17 pg/mL Normal 3.0-54.0 [facility] Comment on above: Order Comment: 'TROP ' Serial specimen #1, #2 or #3: 3 Result Comment: Plea se Note: New Test Units and Gender Specific Reference Ranges. For more information see Policy Stat Procedure Centre High Sensitivity Troponin (TNIH) and attachments. Performed By: #### L 501.4020 ####[facility] [address] [place], [address] TROPONIN-I HS 14 pg/mL Normal 3.0-54.0 [facility] Comment on above: Result Comment: Plea se Note: New Test Units and Gender Specific Reference Ranges. For more information see Policy Stat Procedure Centre High Sensitivity Troponin (TNIH) and attachments. Performed By: #### L 100.0100, L500.2500, L300.8000, L501.4020 #### [facility] Laboratory [address] [place], [address] L501.5425on 04-29-2024 TROPONIN-I HS 12 pg/mL Normal 3.0-54.0 [facility] Comment on above: Order Comment: 'TROP ' Serial specimen #1, #2 or #3: 1 Result Comment: Plea se Note: New Test Units and Gender Specific Reference Ranges. For more information see Policy Stat Procedure Centre High Sensitivity Troponin (TNIH) and attachments. Performed By: #### L 100.0100, L500.2500, L300.8000, L501.4020 #### [facility] Laboratory [address] [place], [address] Lipid Profileon 04-29-2024 Cholesterol [Mass/Vol] 197 mg/dL Normal 200 [facility] Comment on above: Result Comment: <200 mg/dL Desirable 200-240 mg/dL Borderline >240 mg/dL High Risk Performed By: #### L 100.0100, L500.2500, L300.8000, L501.4020 #### [facility] Laboratory [address] [place], [address] Cholesterol in HDL [Mass/Vol] 64 mg/dL Normal [facility] Comment on above: Result Comment: The drugs N-Acetylcysteine and Metamizole may falsely depress this assay. Reference Range HDL <40 mg/dL Low HDL Cholesterol HDL >or= 60 mg/dL High HDL Cholesterol Performed By: #### L 100.0100, L500.2500, L300.8000, L501.4020 #### [facility] Laboratory [address] [place], [address] Cholesterol in LDL [Mass/Vol] 102 mg/dL Normal 0-130 [facility] Comment on above: Performed By: #### L 100.0100, L500.2500, L300.8000, L501.4020 #### [facility] [address] [place], [address] Cholesterol in VLDL [Mass/Vol] 31 mg/dL Normal 5-40 [facility] Comment on above: Performed By: #### L 100.0100, L500.2500, L300.8000, L501.4020 #### [facility] [address] [place], [address] Triglyceride [Mass/Vol] 155 mg/dL Normal [facility] Comment on above: Result Comment: The drugs N-Acetylcysteine and Metamizole may falsely depress this assay. Serum Triglycerides Reference Interval Normal <150 mg/dL Borderline high 150 - 199 mg/dL High 200 - 499 mg/dL Very High > or = 500 mg/dL Performed By: #### L 100.0100, L500.2500, L300.8000, L501.4020 #### [facility] [address] [place], [address] Low density lipoprotein (LDL ) cholesterol measurementOrdered By: Polly Herr on 04-29-2024 Cholesterol in LDL [Mass/Vol] 102 mg/dL 0-130 [facility] M100.678on 04-29-2024 M100.678 SARS-CoV-2 (COVID 19 ) Negative INFLUENZA A Negative INFLUENZA B Negative RSV PCR Negative Normal [facility] Comment on above: Performed By: #### M 100.678 ####[facility] [id number] [place], [place], [id number] Microscopic analysis of urin e for red blood cells (RBC)Ordered By: Sly Blanco on 04-29-2024 Urine RBC 0-5 SEEN /hpf 0-5 [facility] Mucus LM Ql (Urine sed)Order ed By: Sly Blanco on 04-29-2024 Mucus Ql (Urine sed) 0 SEEN /hpf [facility] Nitrite Test strip Ql (U)Ord ered By: Sly Blanco on 04-29-2024 Nitrite Ql (U) Negative Negative [facility] No Panel InformationOrdered By: Polly Herr on 04-29-2024 Blood Gas Sample Site L Radial [facility] Blood Gas Specimen Type ART W [facility] Blood Gas Vent Mode Not entered [facility] Oxygen Delivery Device Room Air [facility] Oxygen saturation measuremen tOrdered By: Polly Herr on 04-29-2024 Blood Gas Oxygen Saturation 94 % Low 95-99 [facility] Partial pressure of carbon d ioxide measurementOrdered By: Polly Herr on 04-29-2024 Arterial Blood Partial Pressure CO2 32.8 mmHg Low 35-45 [facility] Partial pressure of oxygen m easurementOrdered By: Polly Herr on 04-29-2024 Arterial Blood Partial Pressure O2 60 mmHG Low 75-100 [facility] Protein Test strip Ql (U)Ord ered By: Sly Blanco on 04-29-2024 Protein Ql (U) Negative Negative [facility] Serum or plasma cholesterol measurement (mass/volume)Ordered By: Polly Herr on 04-29-2024 Cholesterol [Mass/Vol] 197 mg/dL <200 [facility] Comment on above: <200 mg/dL Desirable 200-240 mg/dL Borderline >240 mg/dL High Risk TSH QnOrdered By: Polly vasquez on 04-29-2024 Thyroid Stimulating Hormone (TSH) 3.480 uIU/mL 0.358-3.740 [facility] Thyroid Stim Hormone (TSH)on 04-29-2024 TSH 3.480 uIU/mL Normal 0.358-3.740 [facility] Comment on above: Performed By: #### L 100.0100, L500.2500, L300.8000, L501.4020 #### [facility] [address] [place], [place], [id number] Total carbon dioxide measure mentOrdered By: Polly Herr on 04-29-2024 Blood Gas Total CO2 28 mmol/L [facility] Triglycerides measurementOrd ered By: Polly Herr on 04-29-2024 Triglyceride [Mass/Vol] 155 mg/dL <199 [facility] Comment on above: The drugs N-Acetylcy steine and Metamizole may falsely depress this assay.Serum Triglycerides Reference Interval Normal <150 mg/dL Borderline high 150 - 199 mg/dL High 200 - 499 mg/dL Very High > or = 500 mg/dL Troponin IOrdered By: Polly Herr on 04-29-2024 Troponin I High Sensitivity 17 pg/mL 3.0-54.0 [facility] Comment on above: Please Note: New Deidre t Units and Gender Specific Reference Ranges. For more information see Policy Stat Procedure [facility] High Sensitivity Troponin (TNIH) and attachments. Urinalysis, Completeon 04-29 EPI,SQUAMOUS 0-5 SEEN Normal 5-10 [facility] Comment on above: Order Comment: COLLE CTOR TO SPECIFY Performed By: #### L 400.0001 ####[facility] [address] [place], [place], [id number] RBC 0-5 SEEN Normal 0-5 [facility] Comment on above: Order Comment: COLLE CTOR TO SPECIFY Performed By: #### L 400.0001 ####[facility] [address] [place], [address] WBC 0-5 SEEN Normal 0-5 [facility] Comment on above: Order Comment: COLLE CTOR TO SPECIFY Performed By: #### L 400.0001 ####[facility] [address] [place], [address] BACTERIA Normal None Seen [facility] Comment on above: Order Comment: CLEAN CATCH Result Comment: Canc elled via OM: Duplicate Order Performed By: #### L 100.0100, L500.2500, L300.8000, L501.4020 #### [facility] [address] [place], [address] BILIRUBIN URINE Normal Negative [facility] Comment on above: Order Comment: CLEAN CATCH Result Comment: Canc elled via OM: Duplicate Order Performed By: #### L 100.0100, L500.2500, L300.8000, L501.4020 #### [facility] [address] [place], [address] Clarity (U) Normal Clear [facility] Comment on above: Order Comment: CLEAN CATCH Result Comment: Canc elled via OM: Duplicate Order Performed By: #### L 100.0100, L500.2500, L300.8000, L501.4020 #### [facility] [address] [place], [address] Color (U) Normal Yellow [facility] Comment on above: Order Comment: CLEAN CATCH Result Comment: Canc elled via OM: Duplicate Order Performed By: #### L 100.0100, L500.2500, L300.8000, L501.4020 #### [facility] [address] [place], [address] EPI,SQUAMOUS Normal 5-10 [facility] Comment on above: Order Comment: CLEAN CATCH Result Comment: Canc elled via OM: Duplicate Order Performed By: #### L 100.0100, L500.2500, L300.8000, L501.4020 #### [facility] [address] [place], [address] GLUCOSE, UR Normal Normal [facility] Comment on above: Order Comment: CLEAN CATCH Result Comment: Canc elled via OM: Duplicate Order Performed By: #### L 100.0100, L500.2500, L300.8000, L501.4020 #### [facility] [address] [place], [address] KETONE UR Normal Negative [facility] Comment on above: Order Comment: CLEAN CATCH Result Comment: Canc elled via OM: Duplicate Order Performed By: #### L 100.0100, L500.2500, L300.8000, L501.4020 #### [facility] [address] [place], [address] LEUK ESTERASE Normal Negative [facility] Comment on above: Order Comment: CLEAN CATCH Result Comment: Canc elled via OM: Duplicate Order Performed By: #### L 100.0100, L500.2500, L300.8000, L501.4020 #### [facility] [address] [place], [address] Mucus Ql (Urine sed) Normal [facility] Comment on above: Order Comment: CLEAN CATCH Result Comment: Canc elled via OM: Duplicate Order Performed By: #### L 100.0100, L500.2500, L300.8000, L501.4020 #### [facility] [address] [place], [address] Nitrite Ql (U) Normal Negative [facility] Comment on above: Order Comment: CLEAN CATCH Result Comment: Canc elled via OM: Duplicate Order Performed By: #### L 100.0100, L500.2500, L300.8000, L501.4020 #### [facility] [address] [place], [address] OCCULT BLOOD-UR Normal Negative [facility] Comment on above: Order Comment: CLEAN CATCH Result Comment: Canc elled via OM: Duplicate Order Performed By: #### L 100.0100, L500.2500, L300.8000, L501.4020 #### [facility] [address] [place], [address] pH UR Normal 5.0 - 8.0 [facility] Comment on above: Order Comment: CLEAN CATCH Result Comment: Canc elled via OM: Duplicate Order Performed By: #### L 100.0100, L500.2500, L300.8000, L501.4020 #### [facility] [address] [place], [address] PROT DIPSTX Normal Negative [facility] Comment on above: Order Comment: CLEAN CATCH Result Comment: Canc elled via OM: Duplicate Order Performed By: #### L 100.0100, L500.2500, L300.8000, L501.4020 #### [facility] [address] [place], [address] RBC Normal 0-5 [facility] Comment on above: Order Comment: CLEAN CATCH Result Comment: Canc elled via OM: Duplicate Order Performed By: #### L 100.0100, L500.2500, L300.8000, L501.4020 #### [facility] [address] [place], [address] SP.GR. DIPSTX Normal 1.002-1.030 [facility] Comment on above: Order Comment: CLEAN CATCH Result Comment: Canc elled via OM: Duplicate Order Performed By: #### L 100.0100, L500.2500, L300.8000, L501.4020 #### [facility] [address] [place], [address] UR Preservative Normal [facility] Comment on above: Order Comment: CLEAN CATCH Result Comment: Canc elled via OM: Duplicate Order Performed By: #### L 100.0100, L500.2500, L300.8000, L501.4020 #### [facility] [address] [place], [address] UROBILI Normal Normal [facility] Comment on above: Order Comment: CLEAN CATCH Result Comment: Canc elled via OM: Duplicate Order Performed By: #### L 100.0100, L500.2500, L300.8000, L501.4020 #### [facility] [address] [place], [address] WBC Normal 0-5 [facility] Comment on above: Order Comment: CLEAN CATCH Result Comment: Canc elled via OM: Duplicate Order Performed By: #### L 100.0100, L500.2500, L300.8000, L501.4020 #### [facility] [address] [place], [address] BACTERIA 0 SEEN Normal None Seen [facility] Comment on above: Order Comment: COLLE CTOR TO SPECIFY Performed By: #### L 400.0001 ####[facility] [address] [place], [address] Mucus Ql (Urine sed) 0 SEEN Normal [facility] Comment on above: Order Comment: COLLE CTOR TO SPECIFY Performed By: #### L 400.0001 ####[facility] [address] [place], [address] Urine Drug Screen (VISTA)on 04-29-2024 AMPHETAMINES Normal <1000 ng/mL [facility] Comment on above: Result Comment: PT.D ISCHARGED, COULD NOT FIND A PLAIN YELLOW TOP/STERILE CUP URINE Performed By: #### L 100.0100, L500.2500, L300.8000, L501.4020 #### [facility] [address] [place], [address] BARBITIURATES Normal < 200 ng/mL [facility] Comment on above: Result Comment: PT.D ISCHARGED, COULD NOT FIND A PLAIN YELLOW TOP/STERILE CUP URINE Performed By: #### L 100.0100, L500.2500, L300.8000, L501.4020 #### [facility] [address] [facility] [address] BENZODIAZIPINE Normal < 200 ng/mL [facility] Comment on above: Result Comment: PT.D ISCHARGED, COULD NOT FIND A PLAIN YELLOW TOP/STERILE CUP URINE Performed By: #### L 100.0100, L500.2500, L300.8000, L501.4020 #### [facility] [address] [facility] [address] COCAINE Normal < 300 ng/mL [facility] Comment on above: Result Comment: PT.D ISCHARGED, COULD NOT FIND A PLAIN YELLOW TOP/STERILE CUP URINE Performed By: #### L 100.0100, L500.2500, L300.8000, L501.4020 #### [facility] [address] [facility] [address] DRUG CONFIRM Normal [facility] Comment on above: Result Comment: PT.D ISCHARGED, COULD NOT FIND A PLAIN YELLOW TOP/STERILE CUP URINE Performed By: #### L 100.0100, L500.2500, L300.8000, L501.4020 #### [facility] [address] [facility] [address] ECSTACY Normal < 500 ng/mL [facility] Comment on above: Result Comment: PT.D ISCHARGED, COULD NOT FIND A PLAIN YELLOW TOP/STERILE CUP URINE Performed By: #### L 100.0100, L500.2500, L300.8000, L501.4020 #### [facility] [address] [facility] [address] METHADONE Normal < 300 ng/mL [facility] Comment on above: Result Comment: PT.D ISCHARGED, COULD NOT FIND A PLAIN YELLOW TOP/STERILE CUP URINE Performed By: #### L 100.0100, L500.2500, L300.8000, L501.4020 #### [facility] [address] [facility] [address] OPIATES Normal < 300 ng/mL [facility] Comment on above: Result Comment: PT.D ISCHARGED, COULD NOT FIND A PLAIN YELLOW TOP/STERILE CUP URINE Performed By: #### L 100.0100, L500.2500, L300.8000, L501.4020 #### [facility] [address] [place], [address] PCP Normal < 25 ng/mL [facility] Comment on above: Result Comment: PT.D ISCHARGED, COULD NOT FIND A PLAIN YELLOW TOP/STERILE CUP URINE Performed By: #### L 100.0100, L500.2500, L300.8000, L501.4020 #### [facility] [address] [place], [address] THC Normal < 50 ng/mL [facility] Comment on above: Result Comment: PT.D ISCHARGED, COULD NOT FIND A PLAIN YELLOW TOP/STERILE CUP URINE Performed By: #### L 100.0100, L500.2500, L300.8000, L501.4020 #### [facility] [address] [place], [address] VISTA UDS PH Normal [facility] Comment on above: Result Comment: PT.D ISCHARGED, COULD NOT FIND A PLAIN YELLOW TOP/STERILE CUP URINE Performed By: #### L 100.0100, L500.2500, L300.8000, L501.4020 #### [facility] [address] [place], [address] Urine blood detectionOrdered By: Sly Blanco on 04-29-2024 Urine Occult Blood 10 /ul High Negative [facility] Urine clarityOrdered By: Kinjal Blanco on 04-29-2024 Clarity (U) Clear Clear [facility] Urine color determinationOrd ered By: Sly Blanco on 04-29-2024 Color (U) Straw Yellow [facility] Urine leukocyte esterase det ection by dipstickOrdered By: Sly Blanco on 04-29-2024 Leukocyte esterase Test strip Ql (U) 25 /ul High Negative [facility] Urine pHOrdered By: Sly sandra on 04-29-2024 pH (U) 8.0 [pH] 5.0 - 8.0 [facility] Urine sediment bacteria coun t by microscopy (number/high power field)Ordered By: Sly Blanco on 04-29-2024 Bacteria LM.HPF (Urine sed) [#/Area] 0 /[HPF] None Seen [facility] Urine specific gravity measu rementOrdered By: Sly Blanco on 04-29-2024 Specific gravity (U) [Rel density] 1.010 1.002-1.030 [facility] Urobilinogen Ql (U)Ordered B y: Sly Blanco on 04-29-2024 Urine Urobilinogen Normal mg/dl Normal [facility] Very low density lipoprotein (VLDL) cholesterol measurementOrdered By: Polly Herr on 04-29-2024 VLDL Cholesterol 31 mg/dL 5-40 [facility] White blood cell countOrdere d By: Sly Blanco on 04-29-2024 Urine WBC 0-5 SEEN /hpf 0-5 [facility] pH (Unsp spec)Ordered By: Mane Herr on 04-29-2024 Blood Gas pH 7.53 High 7.35-7.45 [facility] CBC W/Diff, Automatedon 11-0 Absolute Lymph 2.42 X10 3/uL Normal 0.83-4.51 [facility] Comment on above: Performed By: #### L 400.0001 #### [facility] [address] [place], [address] Absolute Neut 9.2 X10 3/uL High 2.0-7.7 [facility] Comment on above: Performed By: #### L 400.0001 #### [facility] [address] [facility] [place], [address] Basophils/100 WBC (Bld) 0.3 % Normal 0-1 [facility] Comment on above: Performed By: #### L 400.0001 #### [facility] [address] [place], [address] Eosinophils/100 WBC (Bld) 2.0 % Normal 0-5 [facility] Comment on above: Performed By: #### L 400.0001 #### [facility] [address] [place], [address] Erythrocyte distribution width (RBC) [Ratio] 13.1 % Normal 11.6-14.6 [facility] Comment on above: Performed By: #### L 400.0001 #### [facility] [address] [place], [address] Hematocrit (Bld) [Volume fraction] 44.4 % Normal 37-47 [facility] Comment on above: Performed By: #### L 400.0001 #### [facility] [address] [place], [address] Hemoglobin (Bld) [Mass/Vol] 14.1 g/dL Normal 12.0-15.0 [facility] Comment on above: Performed By: #### L 400.0001 #### [facility] [address] [place], [address] IG% 0.600 Normal 0.0-0.9 [facility] Comment on above: Result Comment: IG% - Immature Granulocytes (promyelocytes, myelocytes and metamyelocytes) > 1% indicates that a LEFT SHIFT is Present. Performed By: #### L 400.0001 #### [facility] [address] [place], [address] Lymphocytes/100 WBC (Bld) 18.9 % Low 19-41 [facility] Comment on above: Performed By: #### L 400.0001 #### [facility] [address] [place], [address] MCH (RBC) [Entitic mass] 29.4 pg Normal 27.0-32.0 [facility] Comment on above: Performed By: #### L 400.0001 #### [facility] [address] [place], [address] MCHC (RBC) [Mass/Vol] 31.8 g/dL Low 32-36 [facility] Comment on above: Performed By: #### L 400.0001 #### [facility] [address] [place], [address] MCV (RBC) [Entitic vol] 92.5 fL Normal 81-99 [facility] Comment on above: Performed By: #### L 400.0001 #### [facility] [address] [place], [address] Monocytes/100 WBC (Bld) 6.7 % Normal 0-10 [facility] Comment on above: Performed By: #### L 400.0001 #### [facility] [place], [address] Neutrophils/100 WBC (Bld) 71.5 % High 47-70 [facility] Comment on above: Performed By: #### L 400.0001 #### [facility] [address] [place], [address] Nucleated RBC (Bld) [#/Vol] 0 10*3/uL Normal 0-5 [facility] Comment on above: Performed By: #### L 400.0001 #### [facility] [address] [place], [address] Platelet mean volume (Bld) [Entitic vol] 10.8 fL Normal 6.2-12.0 [facility] Comment on above: Performed By: #### L 400.0001 #### [facility] [address] [place], [address] Platelets (Bld) [#/Vol] 305 10*3/uL Normal 150-450 [facility] Comment on above: Performed By: #### L 400.0001 #### [facility] [address] [place], [address] RBC (Bld) [#/Vol] 4.80 10*6/uL Normal 4.2-5.4 [facility] Comment on above: Performed By: #### L 400.0001 #### [facility] [address] [place], [address] RDW SD 44.4 fl High 35.1-43.9 [facility] Comment on above: Performed By: #### L 400.0001 #### [facility] [address] [place], [address] WBC (Bld) [#/Vol] 12.8 10*3/uL High 4.4-11.0 [facility] Comment on above: Performed By: #### L 400.0001 #### [facility] [address] [place], [address] Comprehensive Metabolic Prof ilon 01-17-2024 Albumin [Mass/Vol] 3.3 g/dL Normal 3.2-5.0 [facility] Comment on above: Performed By: #### L 400.0001 #### [facility] [address] [place], [address] Albumin/Globulin [Mass ratio] 0.8 {ratio} Low 0.9-2.4 [facility] Comment on above: Performed By: #### L 400.0001 #### [facility] [address] [place], [address] ALK P 110 U/L Normal 45-117 [facility] Comment on above: Performed By: #### L 400.0001 #### [facility] [address] [place], [address] ALT [Catalytic activity/Vol] 20 U/L Normal 13-56 [facility] Comment on above: Performed By: #### L 400.0001 #### [facility] [address] [place], [address] AST [Catalytic activity/Vol] 12 U/L Low 15-37 [facility] Comment on above: Performed By: #### L 400.0001 #### [facility] [address] [place], [address] Bilirubin [Mass/Vol] 0.70 mg/dL Normal 0.20-1.00 [facility] Comment on above: Result Comment: For patients on eltrombopag therapy, use of [facility] TBIL is not recommended. Performed By: #### L 400.0001 #### [facility] [address] [place], [address] BUN/CRE 20.4 RATIO High 10-20 [facility] Comment on above: Performed By: #### L 400.0001 #### [facility] [address] [place], [address] CA,Total 9.1 mg/dL Normal 8.5-10.1 [facility] Comment on above: Performed By: #### L 400.0001 #### [facility] [address] [place], [address] Chloride [Moles/Vol] 102 mmol/L Normal 98-107 [facility] Comment on above: Performed By: #### L 400.0001 #### [facility] [address] [place], [address] CO2 [Moles/Vol] 26.0 mmol/L Normal 21.0-32.0 [facility] Comment on above: Performed By: #### L 400.0001 #### [facility] [address] [place], [address] Creatinine [Mass/Vol] 0.88 mg/dL Normal 0.55-1.02 [facility] Comment on above: Result Comment: The validity of the calculated GFR GFRAA in patients over 70 years has not been determined. Clinical correlation is essential. Performed By: #### L 400.0001 #### [facility] [address] [place], [address] EST GFR - AA 81 mL/min Normal >60 [facility] Comment on above: Result Comment: Afri can Spanish GFR Calc Performed By: #### L 400.0001 #### [facility] [address] [place], [address] GAP 8 Normal 5-15 [facility] Comment on above: Performed By: #### L 400.0001 #### [facility] [address] [place], [address] GFR/1.73 sq M.predicted among non-blacks MDRD (S/P/Bld) [Vol rate/Area] 67 mL/min/{1.73_m2} Normal >60 [facility] Comment on above: Result Comment: Non- GFR Calc Performed By: #### L 400.0001 #### [facility] [address] [place], [address] Globulin (S) [Mass/Vol] 4.0 g/dL Normal 2.2-4.2 [facility] Comment on above: Performed By: #### L 400.0001 #### [facility] [address] [place], [address] Glucose [Mass/Vol] 277 mg/dL High 74-106 [facility] Comment on above: Result Comment: Gluc ose result greater than or equal to 200 mg/dL suggests DIABETES MELLITUS per A.D.A. criteria. Performed By: #### L 400.0001 #### [facility] [address] [place], [address] Potassium [Moles/Vol] 4.4 mmol/L Normal 3.5-5.1 [facility] Comment on above: Performed By: #### L 400.0001 #### [facility] [address] [place], [address] Sodium [Moles/Vol] 136 mmol/L Normal 136-145 [facility] Comment on above: Performed By: #### L 400.0001 #### [facility] [address] [place], [id number] ([address] T PROT 7.3 g/dL Normal 6.4-8.2 [facility] Comment on above: Performed By: #### L 400.0001 #### [facility] [address] [place], [address] Urea nitrogen [Mass/Vol] 18 mg/dL Normal 7-18 [facility] Comment on above: Performed By: #### L 400.0001 #### [facility] [address] [place], [address] Free T3on 01-17-2024 Free T3 [Mass/Vol] 2.4 pg/mL Normal 2.18-3.98 [facility] Comment on above: Performed By: #### L 400.0001 #### [facility] [address] [place], [address] Hemoglobin A1con 01-17-2024 HbA1c (Bld) [Mass fraction] 10.8 % High 3.8-5.6 [facility] Comment on above: Result Comment: Norm al < 5.7 % Prediabetic 5.7 - 6.4 % Diabetic >or= 6.5 % Please note range changes. Performed By: #### L 400.0001 #### [facility] [address] [place], [address] Lipid Profileon 01-17-2024 Cholesterol [Mass/Vol] 143 mg/dL Normal 200 [facility] Comment on above: Result Comment: <200 mg/dL Desirable 200-240 mg/dL Borderline >240 mg/dL High Risk Performed By: #### L 400.0001 #### [facility] [address] [place], [address] Cholesterol in HDL [Mass/Vol] 54 mg/dL Normal [facility] Comment on above: Result Comment: The drugs N-Acetylcysteine and Metamizole may falsely depress this assay. Reference Range HDL <40 mg/dL Low HDL Cholesterol HDL >or= 60 mg/dL High HDL Cholesterol Performed By: #### L 400.0001 #### [facility] [address] [place], [address] Cholesterol in LDL [Mass/Vol] 53 mg/dL Normal 0-130 [facility] Comment on above: Performed By: #### L 400.0001 #### [facility] [address] [place], [address] Cholesterol in VLDL [Mass/Vol] 36 mg/dL Normal 5-40 [facility] Comment on above: Performed By: #### L 400.0001 #### [facility] [address] [place], [address] Triglyceride [Mass/Vol] 182 mg/dL Normal [facility] Comment on above: Result Comment: The drugs N-Acetylcysteine and Metamizole may falsely depress this assay. Serum Triglycerides Reference Interval Normal <150 mg/dL Borderline high 150 - 199 mg/dL High 200 - 499 mg/dL Very High > or = 500 mg/dL Performed By: #### L 400.0001 #### [facility] [address] [place], [address] Magnesiumon 01-17-2024 Magnesium [Mass/Vol] 2.1 mg/dL Normal 1.6-2.6 [facility] Comment on above: Performed By: #### L 400.0001 #### [facility] [address] [place], [address] T4 Free Directon 01-17-2024 T4 FREE DIRECT 1.16 ng/dL Normal 0.76-1.46 [facility] Comment on above: Performed By: #### L 400.0001 #### [facility] [address] [place], [address] Thyroid Stim Hormone (TSH)on 01-17-2024 TSH 3.800 uIU/mL High 0.358-3.740 [facility] Comment on above: Performed By: #### L 400.0001 #### [facility] [address] [place], [address] Vitamin D,25 Hydroxyon 01-16 Vitamin D 25-OH 10.2 ng/mL Normal [facility] Comment on above: Result Comment: Lucy min D 25(OH) Status Range Deficiency <20 ng/mL (50nmol/L) Insufficiency 20 - 30 ng/mL (50 - 75 nmol/L) Sufficiency 30 - 100 ng/mL (75 - 250 nmol/L) Toxicity >100 ng/mL (>250 nmol/L) Performed By: #### L 400.0001 #### [facility] [address] [place], [place], [address] MR/BMS.Bon 01-16-2024 MR/BMS.B [facility] [address] [place] [address] OFFICE VISIT Date of Service: 01/16/24 MR#: [id number] Acct: [id number] Name: FELICITAS ALCANTARA Rep #: [id number] : 1950 Provider: Dr. 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 Normal [facility] 12 Lead EKGon 01-15-2024 12 Lead EKG [facility] Cardiovascular Services [address] [place] [address] 12 Lead EKG 01/15/24 0930 MR#: [id number] Acct: [id number] Name: FELICITAS ALCANTARA Rep #: [id number] : 1950 73 From: Cecilio Feliz MD [...] ECG Confirmed by AUDIE MCARTHUR, CECILIO ([id number]), editorial intern ALLA LAINEZ ([id number]) on 01/17/2024 8:14:37 AM Referred By: JESUS/DH Confirmed By: CECILIO FELIZ MD 01/17/2414 Date Cecilio Feliz MD CC: Dr. Nathan Pritchard DO; Dr. Harish Noel MD Signed Normal [facility] Basic Metabolic Profile (BMP )on 01-15-2024 BUN/CRE 18.8 RATIO Normal 01-04 [facility] Comment on above: Order Comment: 1Y Performed By: #### L 100.0100, L500.2500, L300.8000, L501.4020 #### [facility] [address] [place], [address] CA,Total 9.7 mg/dL Normal 8.5-10.1 [facility] Comment on above: Order Comment: 1Y Performed By: #### L 100.0100, L500.2500, L300.8000, L501.4020 #### [facility] [address] [place], [address] Chloride [Moles/Vol] 101 mmol/L Normal 98-107 [facility] Comment on above: Order Comment: 1Y Performed By: #### L 100.0100, L500.2500, L300.8000, L501.4020 #### [facility] [address] [place], [address] CO2 [Moles/Vol] 28.0 mmol/L Normal 21.0-32.0 [facility] Comment on above: Order Comment: 1Y Performed By: #### L 100.0100, L500.2500, L300.8000, L501.4020 #### [facility] [address] [place], [address] Creatinine [Mass/Vol] 0.91 mg/dL Normal 0.55-1.02 [facility] Comment on above: Order Comment: 1Y Result Comment: The validity of the calculated GFR GFRAA in patients over 70 years has not been determined. Clinical correlation is essential. Performed By: #### L 100.0100, L500.2500, L300.8000, L501.4020 #### [facility] [address] [place], [address] ECRCL 63.57 ml/min Normal [facility] Comment on above: Order Comment: 1Y Performed By: #### L 100.0100, L500.2500, L300.8000, L501.4020 #### [facility] [address] [place], [address] EST GFR - AA 79 mL/min Normal >60 [facility] Comment on above: Order Comment: 1Y Result Comment: Afri can Spanish GFR Calc Performed By: #### L 100.0100, L500.2500, L300.8000, L501.4020 #### [facility] [address] [place], [address] GAP 7 Normal 5-15 [facility] Comment on above: Order Comment: 1Y Performed By: #### L 100.0100, L500.2500, L300.8000, L501.4020 #### [facility] [address] [place], [address] GFR/1.73 sq M.predicted among non-blacks MDRD (S/P/Bld) [Vol rate/Area] 65 mL/min/{1.73_m2} Normal >60 [facility] Comment on above: Order Comment: 1Y Result Comment: Non- GFR Calc Performed By: #### L 100.0100, L500.2500, L300.8000, L501.4020 #### [facility] [address] [place], [address] Glucose [Mass/Vol] 231 mg/dL High 74-106 [facility] Comment on above: Order Comment: 1Y Result Comment: Gluc ose result greater than or equal to 200 mg/dL suggests DIABETES MELLITUS per A.D.A. criteria. Performed By: #### L 100.0100, L500.2500, L300.8000, L501.4020 #### [facility] [address] [place], [address] Potassium [Moles/Vol] 4.3 mmol/L Normal 3.5-5.1 [facility] Comment on above: Order Comment: 1Y Performed By: #### L 100.0100, L500.2500, L300.8000, L501.4020 #### [facility] [address] [place], [address] Sodium [Moles/Vol] 136 mmol/L Normal 136-145 [facility] Comment on above: Order Comment: 1Y Performed By: #### L 100.0100, L500.2500, L300.8000, L501.4020 #### [facility] [address] [place], [address] Urea nitrogen [Mass/Vol] 17 mg/dL Normal 7-18 [facility] Comment on above: Order Comment: 1Y Performed By: #### L 100.0100, L500.2500, L300.8000, L501.4020 #### [facility] [address] [place], [address] CBC W/Diff, Automatedon 10-3 0-2024 Absolute Lymph 2.13 X10 3/uL Normal 0.83-4.51 [facility] Comment on above: Performed By: #### L 100.0100, L500.2500, L300.8000, L501.4020 #### [facility] [address] [place], [address] Absolute Neut 10.5 X10 3/uL High 2.0-7.7 [facility] Comment on above: Performed By: #### L 100.0100, L500.2500, L300.8000, L501.4020 #### [facility] [address] [place], [address] Basophils/100 WBC (Bld) 0.7 % Normal 0-1 [facility] Comment on above: Performed By: #### L 100.0100, L500.2500, L300.8000, L501.4020 #### [facility] [address] [place], [address] Eosinophils/100 WBC (Bld) 1.7 % Normal 0-5 [facility] Comment on above: Performed By: #### L 100.0100, L500.2500, L300.8000, L501.4020 #### [facility] [address] [place], [address] Erythrocyte distribution width (RBC) [Ratio] 13.0 % Normal 11.6-14.6 [facility] Comment on above: Performed By: #### L 100.0100, L500.2500, L300.8000, L501.4020 #### [facility] [address] [place], [address] Hematocrit (Bld) [Volume fraction] 45.9 % Normal 37-47 [facility] Comment on above: Performed By: #### L 100.0100, L500.2500, L300.8000, L501.4020 #### [facility] [address] [place], [address] Hemoglobin (Bld) [Mass/Vol] 15.2 g/dL High 12.0-15.0 [facility] Comment on above: Performed By: #### L 100.0100, L500.2500, L300.8000, L501.4020 #### [facility] [address] [place], [address] IG% 1.100 High 0.0-0.9 [facility] Comment on above: Result Comment: IG% - Immature Granulocytes (promyelocytes, myelocytes and metamyelocytes) > 1% indicates that a LEFT SHIFT is Present. Performed By: #### L 100.0100, L500.2500, L300.8000, L501.4020 #### [facility] [address] [place], [address] Lymphocytes/100 WBC (Bld) 15.1 % Low 19-41 [facility] Comment on above: Performed By: #### L 100.0100, L500.2500, L300.8000, L501.4020 #### [facility] [address] [place], [address] MCH (RBC) [Entitic mass] 29.9 pg Normal 27.0-32.0 [facility] Comment on above: Performed By: #### L 100.0100, L500.2500, L300.8000, L501.4020 #### [facility] [address] [place], [address] MCHC (RBC) [Mass/Vol] 33.1 g/dL Normal 32-36 [facility] Comment on above: Performed By: #### L 100.0100, L500.2500, L300.8000, L501.4020 #### [facility] [address] [place], [address] MCV (RBC) [Entitic vol] 90.2 fL Normal 81-99 [facility] Comment on above: Performed By: #### L 100.0100, L500.2500, L300.8000, L501.4020 #### [facility] [address] [place], [address] Monocytes/100 WBC (Bld) 6.7 % Normal 0-10 [facility] Comment on above: Performed By: #### L 100.0100, L500.2500, L300.8000, L501.4020 #### [facility] [address] [place], [address] Neutrophils/100 WBC (Bld) 74.7 % High 47-70 [facility] Comment on above: Performed By: #### L 100.0100, L500.2500, L300.8000, L501.4020 #### [facility] [address] [place], [address] Nucleated RBC (Bld) [#/Vol] 0 10*3/uL Normal 0-5 [facility] Comment on above: Performed By: #### L 100.0100, L500.2500, L300.8000, L501.4020 #### [facility] [address] [place], [address] Platelet mean volume (Bld) [Entitic vol] 10.7 fL Normal 6.2-12.0 [facility] Comment on above: Performed By: #### L 100.0100, L500.2500, L300.8000, L501.4020 #### [facility] [address] [place], [address] Platelets (Bld) [#/Vol] 348 10*3/uL Normal 150-450 [facility] Comment on above: Performed By: #### L 100.0100, L500.2500, L300.8000, L501.4020 #### [facility] [address] [place], [address] RBC (Bld) [#/Vol] 5.09 10*6/uL Normal 4.2-5.4 [facility] Comment on above: Performed By: #### L 100.0100, L500.2500, L300.8000, L501.4020 #### [facility] [address] [place], [address] RDW SD 42.7 fl Normal 35.1-43.9 [facility] Comment on above: Performed By: #### L 100.0100, L500.2500, L300.8000, L501.4020 #### [facility] [address] [place], [address] WBC (Bld) [#/Vol] 14.1 10*3/uL High 4.4-11.0 [facility] Comment on above: Performed By: #### L 100.0100, L500.2500, L300.8000, L501.4020 #### [facility] [address] [place], [address] Chest 1 View (Portable)on Chest 1 View (Portable) [facility] Imaging Services [address] [place] [address] Chest 1 View (Portable) MR#: [id number] Acct: [id number] Name: FELICITAS ALCANTARA Rep #: [id number] : 1950 F 73 From: Hemanth Quinn MD PCP: Dr. Harish Noel MD Status: [facility] ER Study: Chest 1 View (Portable) Date of Exam: 01/15/24 Exam# [id number] Ordering Dr: Nathan Pritchard DO [id number] EXAM: XR CHEST, 1 VIEW CLINICAL INDICATION: [...] 11:20 EDT Reading Location ID and State: [facility] / [place] , Service support , CC: Dr. Nathan Pritchard DO; Dr. 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 Normal [facility] L501.4020on 01-15-2024 TROPONIN-I HS 9 pg/mL Normal 3.0-54.0 [facility] Comment on above: Result Comment: Carlton rice Note: New Test Units and Gender Specific Reference Ranges. For more information see Policy Stat Procedure Centre High Sensitivity Troponin (TNIH) and attachments. Performed By: #### L 400.0001 #### [facility] [address] [place], [address] L501.5425on 01-15-2024 TROPONIN-I HS 10 pg/mL Normal 3.0-54.0 [facility] Comment on above: Order Comment: 1Y Result Comment: Pleanish rice Note: New Test Units and Gender Specific Reference Ranges. For more information see Policy Stat Procedure Centre High Sensitivity Troponin (TNIH) and attachments. Performed By: #### L 100.0100, L500.2500, L300.8000, L501.4020 #### [facility] [address] [place], [address] 12 Lead EKGon 09-03-2023 12 Lead EKG [facility] Cardiovascular Services [address] [place] [address] 12 Lead EKG 09/02/23 1636 MR#: [id number] Acct: [id number] Name: FELICITAS ALCANTARA Rep #: [id number] : 1950 72 From: Cecilio Feliz MD [...] ECG Confirmed by AUDIE MCARTHUR, CECILIO ([id number]), editorial intern ALLA LAINEZ ([id number]) on 09/03/2023 11:26:35 AM Referred By: Confirmed By:CECILIO FELIZ MD 09/03/23 1126 Date Cecilio Feliz MD CC: Dr. Ravi Lamb MD; Dr. Harish Noel MD Signed [facility] 12 Lead EKG [facility] Cardiovascular Services [address] [place] [address] 12 Lead EKG 09/03/23 0638 MR#: [id number] Acct: [id number] Name: FELICITAS ALCANTARA Rep #: [id number] : 1950 72 From: Cecilio Feliz MD [...] ECG Confirmed by CECILIO FELIZ MD ([id number]), editorial intern ALLA LAINEZ ([id number]) on 09/05/2023 8:13:25 AM Referred By: ODETTE Confirmed By:CECILIO FELIZ MD 09/05/23 0813 Date Cecilio Feliz MD CC: Dr. Ravi Lamb MD; Dr. Harish Noel MD Signed Normal [facility] Abdomen/Pelvis W IV Cont ONL Yon 09-03-2023 Abdomen/Pelvis W IV Cont ONLY [facility] Imaging Services [address] [place] [address] Abdomen/Pelvis W IV Cont ONLY MR#: [id number] Acct: [id number] Name: FELICITAS ALCANTARA Rep #: [id number] : 1950 F 72 From: Roel lopez MD PCP: Dr. Harish Noel MD Status: REG ER Study: Abdomen/Pelvis W IV Cont ONLY Date of Exam: Exam# [id number] Ordering Dr: Ravi Lamb MD [id number] STUDY: CT ABDOMEN AND PELVIS WITH CONTRAST [...] Ravi Lamb MD; Dr. Harish Noel MD Speedometer Mechanic: Signed Normal [facility] Basic Metabolic Profile (BMP )on 09-03-2023 BUN/CRE 18.8 RATIO Normal 10-20 [facility] Comment on above: Order Comment: MAURISIO CTOR TO SPECIFY Performed By: #### L 400.0001 #### [facility] [address] [place], [place], [address] CA,Total 9.7 mg/dL Normal 8.5-10.1 [facility] Comment on above: Order Comment: MAURISIO CTOR TO SPECIFY Performed By: #### L 400.0001 #### [facility] [address] [place], [place], [address] Chloride [Moles/Vol] 98 mmol/L Normal 98-107 [facility] Comment on above: Order Comment: MAURISIO CTOR TO SPECIFY Performed By: #### L 400.0001 #### [facility] [address] [place], [address] CO2 [Moles/Vol] 26.0 mmol/L Normal 21.0-32.0 [facility] Comment on above: Order Comment: MAURISIO CTOR TO SPECIFY Performed By: #### L 400.0001 #### [facility] [address] [place], [address] Creatinine [Mass/Vol] 0.90 mg/dL Normal 0.55-1.02 [facility] Comment on above: Order Comment: MAURISIO CTOR TO SPECIFY Result Comment: The validity of the calculated GFR GFRAA in patients over 70 years has not been determined. Clinical correlation is essential. Performed By: #### L 400.0001 #### [facility] [address] [place] [id number] ECRCL 64.13 ml/min Normal [facility] Comment on above: Order Comment: MAURISIO CTOR TO SPECIFY Performed By: #### L 400.0001 #### [facility] [address] [place], [address] EST GFR - AA 79 mL/min Normal >60 [facility] Comment on above: Order Comment: MAURISIO CTOR TO SPECIFY Result Comment: Afri can Spanish GFR Calc Performed By: #### L 400.0001 #### [facility] [address] [place], [address] GAP 7 Normal 5-15 [facility] Comment on above: Order Comment: MAURISIO CTOR TO SPECIFY Performed By: #### L 400.0001 #### [facility] [address] [place], [address] GFR/1.73 sq M.predicted among non-blacks MDRD (S/P/Bld) [Vol rate/Area] 65 mL/min/{1.73_m2} Normal >60 [facility] Comment on above: Order Comment: MAURISIO CTOR TO SPECIFY Result Comment: Non- GFR Calc Performed By: #### L 400.0001 #### [facility] [address] [place], [address] Glucose [Mass/Vol] 278 mg/dL High 74-106 [facility] Comment on above: Order Comment: MAURISIO CTOR TO SPECIFY Result Comment: Gluc ose result greater than or equal to 200 mg/dL suggests DIABETES MELLITUS per A.D.A. criteria. Performed By: #### L 400.0001 #### [facility] [address] [place], [address] Potassium [Moles/Vol] 4.1 mmol/L Normal 3.5-5.1 [facility] Comment on above: Order Comment: MAURISIO CTOR TO SPECIFY Performed By: #### L 400.0001 #### [facility] [address] [place], [address] Sodium [Moles/Vol] 131 mmol/L Low 136-145 [facility] Comment on above: Order Comment: MAURISIO CTOR TO SPECIFY Performed By: #### L 400.0001 #### [facility] [address] [place], [address] Urea nitrogen [Mass/Vol] 17 mg/dL Normal 7-18 [facility] Comment on above: Order Comment: MAURISIO CTOR TO SPECIFY Performed By: #### L 400.0001 #### [facility] [address] [place], [address] Bedside Glucoseon 09-03-2023 FINGERSTICK GLU 295 mg/dL High 74-106 [facility] Comment on above: Result Comment: RIMMA ADRIAN OF PATIENT CARE PER NURSING PROTOCOL Performed By: #### L 100.0100, L500.2500, L300.8000, L501.4020 #### [facility] [address] [place], [address] CBC W/Diff, Automatedon 08-16 Absolute Lymph 2.10 X10 3/uL Normal 0.83-4.51 [facility] Comment on above: Performed By: #### L 400.0001 #### [facility] [address] [place], [address] Absolute Neut 15.2 X10 3/uL High 2.0-7.7 [facility] Comment on above: Performed By: #### L 400.0001 #### [facility] [address] [place], [address] Basophils/100 WBC (Bld) 0.4 % Normal 0-1 [facility] Comment on above: Performed By: #### L 400.0001 #### [facility] [address] [place], [address] Eosinophils/100 WBC (Bld) 0.4 % Normal 0-5 [facility] Comment on above: Performed By: #### L 400.0001 #### [facility] [address] [place], [address] Erythrocyte distribution width (RBC) [Ratio] 12.8 % Normal 11.6-14.6 [facility] Comment on above: Performed By: #### L 400.0001 #### [facility] [address] [place], [address] Hematocrit (Bld) [Volume fraction] 50.1 % High 37-47 [facility] Comment on above: Performed By: #### L 400.0001 #### [facility] [address] [place], [address] Hemoglobin (Bld) [Mass/Vol] 16.0 g/dL High 12.0-15.0 [facility] Comment on above: Performed By: #### L 400.0001 #### [facility] [address] [place], [address] IG% 0.700 Normal 0.0-0.9 [facility] Comment on above: Result Comment: IG% - Immature Granulocytes (promyelocytes, myelocytes and metamyelocytes) > 1% indicates that a LEFT SHIFT is Present. Performed By: #### L 400.0001 #### [facility] [address] [place], [address] Lymphocytes/100 WBC (Bld) 11.4 % Low 19-41 [facility] Comment on above: Performed By: #### L 400.0001 #### [facility] [address] [place], [address] MCH (RBC) [Entitic mass] 29.1 pg Normal 27.0-32.0 [facility] Comment on above: Performed By: #### L 400.0001 #### [facility] [address] [place], [address] MCHC (RBC) [Mass/Vol] 31.9 g/dL Low 32-36 [facility] Comment on above: Performed By: #### L 400.0001 #### [facility] [address] [place], [address] MCV (RBC) [Entitic vol] 91.1 fL Normal 81-99 [facility] Comment on above: Performed By: #### L 400.0001 #### [facility] [address] [place], [address] Monocytes/100 WBC (Bld) 4.8 % Normal 0-10 [facility] Comment on above: Performed By: #### L 400.0001 #### [facility] [address] [place], [address] Neutrophils/100 WBC (Bld) 82.3 % High 47-70 [facility] Comment on above: Performed By: #### L 400.0001 #### [facility] [address] [place], [address] Nucleated RBC (Bld) [#/Vol] 0 10*3/uL Normal 0-5 [facility] Comment on above: Performed By: #### L 400.0001 #### [facility] [address] [place], [address] Platelet mean volume (Bld) [Entitic vol] 10.7 fL Normal 6.2-12.0 [facility] Comment on above: Performed By: #### L 400.0001 #### [facility] [address] [place], [address] Platelets (Bld) [#/Vol] 333 10*3/uL Normal 150-450 [facility] Comment on above: Performed By: #### L 400.0001 #### [facility] [address] [place], [address] RBC (Bld) [#/Vol] 5.50 10*6/uL High 4.2-5.4 [facility] Comment on above: Performed By: #### L 400.0001 #### [facility] [address] [place], [address] RDW SD 42.5 fl Normal 35.1-43.9 [facility] Comment on above: Performed By: #### L 400.0001 #### [facility] [address] [place], [address] WBC (Bld) [#/Vol] 18.4 10*3/uL High 4.4-11.0 [facility] Comment on above: Performed By: #### L 400.0001 #### [facility] [address] [place], [address] Chest 1 View (Portable)on Chest 1 View (Portable) [facility] Imaging Services [address] [place] [address] Chest 1 View (Portable) MR#: [id number] Acct: [id number] Name: FELICITAS ALCANTARA Rep #: [id number] : 1950 F 72 From: Roel lopez MD PCP: Dr. Harish Noel MD Status: REG ER Study: Chest 1 View (Portable) Date of Exam: 09/03/23 Exam# [id number] Ordering Dr: Ravi Lamb MD [id number] STUDY: X-RAY CHEST REASON FOR EXAM: Female, [...] Ravi Lamb MD; Dr. 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 Normal [facility] L501.4020on 09-03-2023 TROPONIN-I HS 14 pg/mL Normal 3.0-54.0 [facility] Comment on above: Order Comment: 'TROP ' Serial specimen #1, #2 or #3: 1 Result Comment: Carlton rice Note: New Test Units and Gender Specific Reference Ranges. For more information see Policy Stat Procedure Centre High Sensitivity Troponin (TNIH) and attachments. Performed By: #### L 100.0100, L500.2500, L300.8000, L501.4020 #### [facility] [address] [place], [address] Urinalysis, Completeon 09-02 BACTERIA 2+ /hpf Normal None Seen [facility] Comment on above: Order Comment: MAURISIO CTOR TO SPECIFY Performed By: #### L 400.0001 #### [facility] [address] [place], [address] EPI,SQUAMOUS 0-5 SEEN Normal 5-10 [facility] Comment on above: Order Comment: MAURISIO CTOR TO SPECIFY Performed By: #### L 400.0001 #### [facility] [address] [place], [address] WBC 0-5 SEEN Normal 0-5 [facility] Comment on above: Order Comment: MAURISIO CTOR TO SPECIFY Performed By: #### L 400.0001 #### [facility] [address] [place], [address] Mucus Ql (Urine sed) 0 SEEN Normal [facility] Comment on above: Order Comment: MAURISIO CTOR TO SPECIFY Performed By: #### L 400.0001 #### [facility] [address] [place], [address] RBC 0 SEEN Normal 0-5 [facility] Comment on above: Order Comment: MAURISIO CTOR TO SPECIFY Performed By: #### L 400.0001 #### [facility] [address] [place], [address] Basic Metabolic Profile (BMP )on 09-02-2023 BUN/CRE 20.0 RATIO Normal 10-20 [facility] Comment on above: Order Comment: 'TROP ' Serial specimen #1, #2 or #3: 1 Performed By: #### L 100.0100, L500.2500, L300.8000, L501.4020 #### [facility] [address] [place], [address] CA,Total 9.4 mg/dL Normal 8.5-10.1 [facility] Comment on above: Order Comment: 'TROP ' Serial specimen #1, #2 or #3: 1 Performed By: #### L 100.0100, L500.2500, L300.8000, L501.4020 #### [facility] [address] [place], [address] Chloride [Moles/Vol] 101 mmol/L Normal 98-107 [facility] Comment on above: Order Comment: 'TROP ' Serial specimen #1, #2 or #3: 1 Performed By: #### L 100.0100, L500.2500, L300.8000, L501.4020 #### [facility] [address] [place], [address] CO2 [Moles/Vol] 27.0 mmol/L Normal 21.0-32.0 [facility] Comment on above: Order Comment: 'TROP ' Serial specimen #1, #2 or #3: 1 Performed By: #### L 100.0100, L500.2500, L300.8000, L501.4020 #### [facility] [address] [place], [address] Creatinine [Mass/Vol] 0.95 mg/dL Normal 0.55-1.02 [facility] Comment on above: Order Comment: 'TROP ' Serial specimen #1, #2 or #3: 1 Result Comment: The validity of the calculated GFR GFRAA in patients over 70 years has not been determined. Clinical correlation is essential. Performed By: #### L 100.0100, L500.2500, L300.8000, L501.4020 #### [facility] [address] [place], [address] ECRCL 61.67 ml/min Normal [facility] Comment on above: Order Comment: 'TROP ' Serial specimen #1, #2 or #3: 1 Performed By: #### L 100.0100, L500.2500, L300.8000, L501.4020 #### [facility] [address] [place], [address] EST GFR - AA 74 mL/min Normal >60 [facility] Comment on above: Order Comment: 'TROP ' Serial specimen #1, #2 or #3: 1 Result Comment: Afri can Spanish GFR Calc Performed By: #### L 100.0100, L500.2500, L300.8000, L501.4020 #### [facility] [address] [place], [address] GAP 8 Normal 5-15 [facility] Comment on above: Order Comment: 'TROP ' Serial specimen #1, #2 or #3: 1 Performed By: #### L 100.0100, L500.2500, L300.8000, L501.4020 #### [facility] [address] [place], [address] GFR/1.73 sq M.predicted among non-blacks MDRD (S/P/Bld) [Vol rate/Area] 62 mL/min/{1.73_m2} Normal >60 [facility] Comment on above: Order Comment: 'TROP ' Serial specimen #1, #2 or #3: 1 Result Comment: Non- GFR Calc Performed By: #### L 100.0100, L500.2500, L300.8000, L501.4020 #### [facility] [address] [place], [address] Glucose [Mass/Vol] 276 mg/dL High 74-106 [facility] Comment on above: Order Comment: 'TROP ' Serial specimen #1, #2 or #3: 1 Result Comment: Gluc ose result greater than or equal to 200 mg/dL suggests DIABETES MELLITUS per A.D.A. criteria. Performed By: #### L 100.0100, L500.2500, L300.8000, L501.4020 #### [facility] [address] [place], [address] Potassium [Moles/Vol] 4.2 mmol/L Normal 3.5-5.1 [facility] Comment on above: Order Comment: 'TROP ' Serial specimen #1, #2 or #3: 1 Performed By: #### L 100.0100, L500.2500, L300.8000, L501.4020 #### [facility] [address] [place], [address] Sodium [Moles/Vol] 136 mmol/L Normal 136-145 [facility] Comment on above: Order Comment: 'TROP ' Serial specimen #1, #2 or #3: 1 Performed By: #### L 100.0100, L500.2500, L300.8000, L501.4020 #### [facility] [address] [place], [address] Urea nitrogen [Mass/Vol] 19 mg/dL High 7-18 [facility] Comment on above: Order Comment: 'TROP ' Serial specimen #1, #2 or #3: 1 Performed By: #### L 100.0100, L500.2500, L300.8000, L501.4020 #### [facility] [address] [place], [address] CBC W/Diff, Automatedon 06- Absolute Lymph 1.95 X10 3/uL Normal 0.83-4.51 [facility] Comment on above: Performed By: #### L 100.0100, L500.2500, L300.8000, L501.4020 #### [facility] [address] [place], [address] Absolute Neut 10.4 X10 3/uL High 2.0-7.7 [facility] Comment on above: Performed By: #### L 100.0100, L500.2500, L300.8000, L501.4020 #### [facility] [address] [place], [address] Basophils/100 WBC (Bld) 0.6 % Normal 0-1 [facility] Comment on above: Performed By: #### L 100.0100, L500.2500, L300.8000, L501.4020 #### [facility] [address] [place], [address] Eosinophils/100 WBC (Bld) 2.0 % Normal 0-5 [facility] Comment on above: Performed By: #### L 100.0100, L500.2500, L300.8000, L501.4020 #### [facility] [address] [place], [address] Erythrocyte distribution width (RBC) [Ratio] 12.8 % Normal 11.6-14.6 [facility] Comment on above: Performed By: #### L 100.0100, L500.2500, L300.8000, L501.4020 #### [facility] [address] [place], [address] Hematocrit (Bld) [Volume fraction] 46.8 % Normal 37-47 [facility] Comment on above: Performed By: #### L 100.0100, L500.2500, L300.8000, L501.4020 #### [facility] [address] [place], [address] Hemoglobin (Bld) [Mass/Vol] 15.1 g/dL High 12.0-15.0 [facility] Comment on above: Performed By: #### L 100.0100, L500.2500, L300.8000, L501.4020 #### [facility] [address] [place], [address] IG% 0.700 Normal 0.0-0.9 [facility] Comment on above: Result Comment: IG% - Immature Granulocytes (promyelocytes, myelocytes and metamyelocytes) > 1% indicates that a LEFT SHIFT is Present. Performed By: #### L 100.0100, L500.2500, L300.8000, L501.4020 #### [facility] [address] [place], [address] Lymphocytes/100 WBC (Bld) 14.3 % Low 19-41 [facility] Comment on above: Performed By: #### L 100.0100, L500.2500, L300.8000, L501.4020 #### [facility] [address] [place], [address] MCH (RBC) [Entitic mass] 29.2 pg Normal 27.0-32.0 [facility] Comment on above: Performed By: #### L 100.0100, L500.2500, L300.8000, L501.4020 #### [facility] [address] [place], [address] MCHC (RBC) [Mass/Vol] 32.3 g/dL Normal 32-36 [facility] Comment on above: Performed By: #### L 100.0100, L500.2500, L300.8000, L501.4020 #### [facility] [address] [place], [address] MCV (RBC) [Entitic vol] 90.3 fL Normal 81-99 [facility] Comment on above: Performed By: #### L 100.0100, L500.2500, L300.8000, L501.4020 #### [facility] [address] [place], [address] Monocytes/100 WBC (Bld) 6.0 % Normal 0-10 [facility] Comment on above: Performed By: #### L 100.0100, L500.2500, L300.8000, L501.4020 #### [facility] [address] [place], [address] Neutrophils/100 WBC (Bld) 76.4 % High 47-70 [facility] Comment on above: Performed By: #### L 100.0100, L500.2500, L300.8000, L501.4020 #### [facility] [address] [place], [address] Nucleated RBC (Bld) [#/Vol] 0 10*3/uL Normal 0-5 [facility] Comment on above: Performed By: #### L 100.0100, L500.2500, L300.8000, L501.4020 #### [facility] [address] [place], [address] Platelet mean volume (Bld) [Entitic vol] 10.8 fL Normal 6.2-12.0 [facility] Comment on above: Performed By: #### L 100.0100, L500.2500, L300.8000, L501.4020 #### [facility] [address] [place], [address] Platelets (Bld) [#/Vol] 309 10*3/uL Normal 150-450 [facility] Comment on above: Performed By: #### L 100.0100, L500.2500, L300.8000, L501.4020 #### [facility] [address] [place], [address] RBC (Bld) [#/Vol] 5.18 10*6/uL Normal 4.2-5.4 [facility] Comment on above: Performed By: #### L 100.0100, L500.2500, L300.8000, L501.4020 #### [facility] [address] [place], [address] RDW SD 42.4 fl Normal 35.1-43.9 [facility] Comment on above: Performed By: #### L 100.0100, L500.2500, L300.8000, L501.4020 #### [facility] [address] [place], [address] WBC (Bld) [#/Vol] 13.6 10*3/uL High 4.4-11.0 [facility] Comment on above: Performed By: #### L 100.0100, L500.2500, L300.8000, L501.4020 #### [facility] [address] [place], [address] Chest PA and Lateralon 09-01 Chest PA and Lateral [facility] Imaging Services [address] [place] [address] Chest PA and Lateral MR#: [id number] Acct: [id number] Name: FELICITAS ALCANTARA Rep #: [id number] : 1950 F 72 From: Malachi Lindsay MD PCP: Dr. Harish Noel MD Status: [facility] ER Study: Chest PA and Lateral Date of Exam: 09/02/23 Exam# [id number] Ordering Dr: Nathan Pritchard DO [id number] STUDY: X-RAY CHEST REASON FOR EXAM: Female, [...] 17:23 EDT Reading Location ID and State: [facility] / [place] Tel , Service support , CC: Dr. Nathan Pritchard DO; Dr. 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 Performed By: #### L 100.0100, L500.2500, L300.8000, L501.4020 #### [facility] [address] [facility] [facility] [place], [address] Emergency Department Summary on 09-02-2023 Emergency Department Summary [facility] Medical Records Department [address] [place] [address] Emergency Department Summary 09/02/23 MR#: [id number] Acct: [id number] Name: FELICITAS ALCANTARA Rep #: [id number] : 1950 72 From: Nathan Pritchard DO [...] also admits to some dizziness and headache. [facility] Medical History History of left heart catheterization (LHC) ( 09/05/21) Abnormal nuclear stress test Dyspnea on exertion Mass of lip Elevated WBC count History of DVT (deep vein thrombosis) Presence of stent in coronary artery ( 04/10/16) History of non-ST elevation myocardial infarction (NSTEMI) Cardiogenic shock Type 2 diabetes mellitus Atherosclerotic heart disease of [place] coronary artery without angina pectoris Essential hypertension [...] Allergy Hives Verified 09/02/23 15:25 dulaglutide (From [facility]) Allergy Hives Verified 09/02/23 15:25 glipizide Allergy [...] 17:24 Temperatur (more content not included)... Normal [facility] L501.4020on 09-02-2023 TROPONIN-I HS 12 pg/mL Normal 3.0-54.0 [facility] Comment on above: Order Comment: 'TROP ' Serial specimen #1, #2 or #3: 1 Result Comment: Carlton rice Note: New Test Units and Gender Specific Reference Ranges. For more information see Policy Stat Procedure Centre High Sensitivity Troponin (TNIH) and attachments. Performed By: #### L 100.0100, L500.2500, L300.8000, L501.4020 #### [facility] [address] [place], [address] Urinalysis, Completeon 09-01 EPI,SQUAMOUS 0-5 SEEN Normal 5-10 [facility] Comment on above: Order Comment: MAURISIO CTOR TO SPECIFY Performed By: #### L 400.0001 #### [facility] [address] [place], [address] BACTERIA 0 SEEN Normal None Seen [facility] Comment on above: Order Comment: MAURISIO CTOR TO SPECIFY Performed By: #### L 400.0001 #### [facility] [address] [place], [address] Mucus Ql (Urine sed) 0 SEEN Normal [facility] Comment on above: Order Comment: MAURISIO CTOR TO SPECIFY Performed By: #### L 400.0001 #### [facility] [address] [place], [address] RBC 0 SEEN Normal 0-5 [facility] Comment on above: Order Comment: MAURISIO CTOR TO SPECIFY Performed By: #### L 400.0001 #### [facility] [address] [place], [address] WBC 0 SEEN Normal 0-5 [facility] Comment on above: Order Comment: MAURISIO CTOR TO SPECIFY Performed By: #### L 400.0001 #### [facility] [address] [place], [address] /Jessica 08-05-2023 /DEO.FERMIN [facility] [address] [place] [address] OFFICE VISIT Date of Service: 08/05/23 MR#: [id number] Acct: [id number] Name: FELICITAS ALCANTARA Rep #: [id number] : 1950 Provider: Dr. Harish jose MD Age/Sex: 72/F Location: [facility] Status: Signed Intake Vital Signs 02/04/23 13:45 [...] 6 M FU Chief Complaint: 6m f/u Registered Nurse Practitioner Required: No Accompanied by: Self Is patient [...] 2 diabetes mellitus Atherosclerotic heart disease of [place] coronary artery without angina pectoris Essential hypertension [...] She has been following with cardiology at [place]. She is only on carvedilol and clopidogrel [...] clear thyrom (more content not included)... Normal [facility] Absolute lymphocyte countOrd ered By: Dr. Noel on 06-11-2022 Lymphocytes Auto (Unsp spec) [#/Vol] 3.11 10*3/uL 0.83-4.51 [facility] Basophil percentageOrdered B y: Dr. Noel on 06-11-2022 Basophils/100 WBC (Bld) 0.6 % 0-1 [facility] Bilirubin [Mass/Vol] 0.60 mg/dL 0.20-1.00 [facility] Comment on above: For patients on eltr ombopag therapy, use of [facility] [place] TBIL is not recommended. Chloride [Moles/Vol] 102 mmol/L 98-107 [facility] Eosinophils/100 WBC (Bld) 2.2 % 0-5 [facility] Glucose [Mass/Vol] 173 mg/dL 74-106 [facility] Comment on above: Fasting Glucose resu lt greater than or equal to 126 mg/dL suggests DIABETES MELLITUS per A.D.A. criteria. Neutrophils (Bld) [#/Vol] 9.5 10*3/uL 2.0-7.7 [facility] Neutrophils/100 WBC (Bld) 67.2 % 47-70 [facility] Potassium [Moles/Vol] 4.2 mmol/L 3.5-5.1 [facility] Protein [Mass/Vol] 7.5 g/dL 6.4-8.2 [facility] Sodium [Moles/Vol] 135 mmol/L 136-145 [facility] WBC (Bld) [#/Vol] 14.0 10*3/uL 4.4-11.0 [facility] Basophil percentageOrdered B y: Rustam Francois on 06-11-2022 Cholesterol [Mass/Vol] 158 mg/dL <200 [facility] Comment on above: <200 mg/dL Desirable 200-240 mg/dL Borderline >240 mg/dL High Risk Triglyceride [Mass/Vol] 212 mg/dL <199 [facility] Comment on above: The drugs N-Acetylcy steine and Metamizole may falsely depress this assay.Serum Triglycerides Reference Interval Normal <150 mg/dL Borderline high 150 - 199 mg/dL High 200 - 499 mg/dL Very High > or = 500 mg/dL Blood erythrocytes count (nu mber/volume)Ordered By: Dr. Noel on 06-11-2022 RBC (Bld) [#/Vol] 5.01 10*6/uL 4.2-5.4 [facility] Blood hemoglobin measurement (mass/volume)Ordered By: Dr. Noel on 06-11-2022 Hemoglobin (Bld) [Mass/Vol] 14.6 g/dL 12.0-15.0 [facility] Blood lymphocytes/100 leukoc ytesOrdered By: Dr. Noel on 06-11-2022 Lymphocytes/100 WBC (Bld) 22.2 % 19-41 [facility] Blood monocytes/100 leukocyt esOrdered By: Dr. Noel on 06-11-2022 Monocytes/100 WBC (Bld) 7.0 % 0-10 [facility] Blood platelet mean volumeOr dered By: Dr. Noel on 06-11-2022 Platelet mean volume (Bld) [Entitic vol] 10.5 fL 6.2-12.0 [facility] Determination of erythrocyte mean corpuscular volume (MCV)Ordered By: Dr. Noel on 06-11-2022 MCV (RBC) [Entitic vol] 89.6 fL 81-99 [facility] Direct bilirubinOrdered By: Dr. Noel on 06-11-2022 Bilirubin.direct [Mass/Vol] 0.16 mg/dL 0.00-0.30 [facility] Hematocrit Auto (Bld) [Volum e fraction]Ordered By: Dr. Noel on 06-11-2022 Hematocrit (Bld) [Volume fraction] 44.9 % 37-47 [facility] Laboratory - Chemistry and C hemistry - challengeOrdered By: Dr. Noel on 06-11-2022 ALP [Catalytic activity/Vol] 98 U/L 45-117 [facility] ALT [Catalytic activity/Vol] 25 U/L 13-56 [facility] CO2 [Moles/Vol] 28.0 mmol/L 21.0-32.0 [facility] Cobalamin (Vitamin B12) [Mass/Vol] 296 pg/mL 211-911 [facility] Free T4 [Mass/Vol] 1.03 ng/dL 0.76-1.46 [facility] Globulin (S) [Mass/Vol] 4.2 g/dL 2.2-4.2 [facility] Urea nitrogen/Creatinine [Mass ratio] 21.3 mg/mg 10-20 [facility] Laboratory - Hematology and Cell countsOrdered By: Dr. Noel on 06-11-2022 Erythrocyte distribution width (RBC) [Entitic vol] 46.9 fL 35.1-43.9 [facility] Erythrocyte distribution width (RBC) [Ratio] 14.3 % 11.6-14.6 [facility] Immature granulocytes/100 WBC (Bld) 0.800 % 0.0-0.9 [facility] Comment on above: IG% - Immature Granu locytes (promyelocytes, myelocytes and metamyelocytes) > 1% indicates that a LEFT SHIFT is Present. MCH (RBC) [Entitic mass] 29.1 pg 27.0-32.0 [facility] Nucleated RBC/100 WBC (Bld) [Ratio] 0 % 0-5 [facility] MCHC Auto (RBC) [Mass/Vol]Or dered By: Dr. Noel on 06-11-2022 MCHC (RBC) [Mass/Vol] 32.5 g/dL 32-36 [facility] No Panel InformationOrdered By: Dr. Noel on 06-11-2022 Estimated GFR (MDRD) Amer 80 mL/min >60 [facility] Comment on above: GFR Calc Estimated GFR (MDRD) Non-Af Amer 66 mL/min >60 [facility] Comment on above: Non- GFR Calc Free Triiodothyronine (T3) pg/dL 2.6 pg/mL 2.18-3.98 [facility] Thyroid Stimulating Hormone (TSH) 8.13 uIU/mL 0.358-3.74 [facility] Vitamin D 25-Hydroxy 24.6 ng/mL [facility] Comment on above: Vitamin D 25(OH) Sta tus Range Deficiency <20 ng/mL (50nmol/L) Insufficiency 20 - 30 ng/mL (50 - 75 nmol/L) Sufficiency 30 - 100 ng/mL (75 - 250 nmol/L) Toxicity >100 ng/mL (>250 nmol/L) Platelets bldOrdered By: Dr. Noel on 06-11-2022 Platelets (Bld) [#/Vol] 316 10*3/uL 150-450 [facility] Serum or plasma albumin betsy urement (mass/volume)Ordered By: Dr. Noel on 06-11-2022 Albumin [Mass/Vol] 3.3 g/dL 3.2-5.0 [facility] Serum or plasma albumin/glob ulin mass ratioOrdered By: Dr. Noel on 06-11-2022 Albumin/Globulin [Mass ratio] 0.8 {ratio} 0.9-2.4 [facility] Serum or plasma calcium betsy urement (mass/volume)Ordered By: Dr. Noel on 06-11-2022 Calcium [Mass/Vol] 9.1 mg/dL 8.5-10.1 [facility] Serum or plasma cholesterol in HDL measurement (mass/volume)Ordered By: Rustam Francois on 06-11-2022 Cholesterol in HDL [Mass/Vol] 51 mg/dL >40 [facility] Comment on above: The drugs N-Acetylcy steine and Metamizole may falsely depress this assay. Reference Range HDL <40 mg/dL Low HDL Cholesterol HDL >or= 60 mg/dL High HDL Cholesterol Serum or plasma cholesterol in VLDL measurement (mass/volume)Ordered By: Rustam Francois on 06-11-2022 Cholesterol in VLDL [Mass/Vol] 42 mg/dL 5-40 [facility] Serum or plasma creatinine m easurement (mass/volume)Ordered By: Dr. Noel on 06-11-2022 Creatinine [Mass/Vol] 0.89 mg/dL 0.55-1.02 [facility] Comment on above: The validity of the calculated GFR & GFRAA in patients over 70 years has not been determined. Clinical correlation is essential. Serum or plasma low density lipoprotein (LDL) cholesterol measurement (mass/volume)Ordered By: Rustam Francois on 06-11-2022 Cholesterol in LDL [Mass/Vol] 65 mg/dL 0-130 [facility] Serum or plasma urea nitroge n measurement (mass/volume)Ordered By: Dr. Noel on 06-11-2022 Urea nitrogen [Mass/Vol] 19 mg/dL 7-18 [facility] Thin prep Papanicolaou smear with manual screeningOrdered By: Dr. oNel on 06-11-2022 Thin prep Papanicolaou smear with manual screening 19 U/L 15-37 [facility] Thin prep Papanicolaou smear with manual screening 5 5-15 [facility] Laboratory - Hematology and Cell countson 05-16-2022 HbA1c (Bld) [Mass fraction] 10.0 % 4.2-6.3 [facility] Absolute lymphocyte counton 01-21-2022 Lymphocytes Auto (Unsp spec) [#/Vol] 2.10 10*3/uL 0.83-4.51 [facility] Work Phone: Basophil percentageon 2021 Basophils/100 WBC (Bld) 0.6 % 0-1 [facility] Work Phone: Chloride [Moles/Vol] 98 mmol/L 98-107 [facility] Work Phone: Eosinophils/100 WBC (Bld) 1.8 % 0-5 [facility] Work Phone: Glucose [Mass/Vol] 208 mg/dL 74-106 [facility] Work Phone: Comment on above: Glucose result great er than or equal to 200 mg/dLsuggests DIABETES MELLITUS per A.D.A. criteria. Neutrophils (Bld) [#/Vol] 12.6 10*3/uL 2.0-7.7 [facility] Work Phone: Neutrophils/100 WBC (Bld) 77.5 % 47-70 [facility] Work Phone: Potassium [Moles/Vol] 4.1 mmol/L 3.5-5.1 [facility] Work Phone: Sodium [Moles/Vol] 134 mmol/L 136-145 [facility] Work Phone: [phone] WBC (Bld) [#/Vol] 16.3 10*3/uL 4.4-11.0 [facility] Work Phone: [phone] Blood erythrocytes count (nu mber/volume)on 01-21-2022 RBC (Bld) [#/Vol] 4.75 10*6/uL 4.2-5.4 [facility] Work Phone: Blood hemoglobin measurement (mass/volume)on 01-21-2022 Hemoglobin (Bld) [Mass/Vol] 13.6 g/dL 12.0-15.0 [facility] Work Phone: Blood lymphocytes/100 leukoc yteson 01-21-2022 Lymphocytes/100 WBC (Bld) 12.9 % 19-41 [facility] Work Phone: Blood monocytes/100 leukocyt eson 01-21-2022 Monocytes/100 WBC (Bld) 6.2 % 0-10 [facility] Work Phone: [phone] Blood platelet mean volumeon 01-21-2022 Platelet mean volume (Bld) [Entitic vol] 10.3 fL 6.2-12.0 [facility] Work Phone: [phone] Determination of erythrocyte mean corpuscular volume (MCV)on 01-21-2022 MCV (RBC) [Entitic vol] 90.9 fL 81-99 [facility] Work Phone: Glucose Glucometer (BldC) [M ass/Vol]on 01-21-2022 Glucose [Mass/Vol] 215 mg/dL 74-106 [facility] Work Phone: Comment on above: MANAGEMENT OF PATIEN T CARE PER NURSING PROTOCOL Hematocrit Auto (Bld) [Volum e fraction]on 01-21-2022 Hematocrit (Bld) [Volume fraction] 43.2 % 37-47 [facility] Work Phone: [phone] Laboratory - Chemistry and C hemistry - challengeon 01-21-2022 CO2 [Moles/Vol] 29.0 mmol/L 21.0-32.0 [facility] Work Phone: [phone] Urea nitrogen/Creatinine [Mass ratio] 18.6 mg/mg 10-20 [facility] Work Phone: [phone] Laboratory - Hematology and Cell countson 01-21-2022 Erythrocyte distribution width (RBC) [Entitic vol] 42.5 fL 35.1-43.9 [facility] Work Phone: [phone] Erythrocyte distribution width (RBC) [Ratio] 12.8 % 11.6-14.6 [facility] Work Phone: [phone] Immature granulocytes/100 WBC (Bld) 1.000 % 0.0-0.9 [facility] Work Phone: [phone] Comment on above: IG% - Immature Granu locytes (promyelocytes, myelocytes and metamyelocytes) > 1% indicates that a LEFT SHIFT is Present. MCH (RBC) [Entitic mass] 28.6 pg 27.0-32.0 [facility] Work Phone: [phone] Nucleated RBC/100 WBC (Bld) [Ratio] 0 % 0-5 [facility] Work Phone: [phone] MCHC Auto (RBC) [Mass/Vol]on 01-21-2022 MCHC (RBC) [Mass/Vol] 31.5 g/dL 32-36 [facility] Work Phone: [phone] No Panel Informationon 01-21 D-Dimer Quantitative (PE/DVT) 1.38 FEU/ug/m 0.27-0.49 [facility] Work Phone: [phone] Comment on above: D-Dimer ELEVATED (>0 .49): Additional studies and clinicalassessments are indicated to conclude diagnosis of:Deep Vein Thrombosis (DVT) or Pulmonary Embolism (PE)CRITICAL VALUE VERIFIED. CALLED TO JEWELL RODRIGEZ01/21/22 [id number].RESULTS READ BACK BY SAME . Estimated Creatinine Clearance Calc 45.50 ml/min [facility] Work Phone: Estimated GFR (MDRD) Amer 78 mL/min >60 [facility] Work Phone: Comment on above: GFR Calc Estimated GFR (MDRD) Non-Af Amer 65 mL/min >60 [facility] Work Phone: Comment on above: Non- GFR Calc Troponin I High Sensitivity 17 pg/mL 3.0-54.0 [facility] Work Phone: Comment on above: Please Note: [place] t Units and Gender Specific Reference Ranges. For more information see Policy Stat Procedure Centre High Sensitivity Troponin (TNIH) and attachments. Platelets bldon 01-21-2022 Platelets (Bld) [#/Vol] 374 10*3/uL 150-450 [facility] Work Phone: Serum or plasma calcium betsy urement (mass/volume)on 01-21-2022 Calcium [Mass/Vol] 10.3 mg/dL 8.5-10.1 [facility] Work Phone: Serum or plasma creatinine m easurement (mass/volume)on 01-21-2022 Creatinine [Mass/Vol] 0.91 mg/dL 0.55-1.02 [facility] Work Phone: Comment on above: The validity of the calculated GFR & GFRAA in patients over 70 years has not been determined. Clinical correlation is essential. Serum or plasma urea nitroge n measurement (mass/volume)on 01-21-2022 Urea nitrogen [Mass/Vol] 17 mg/dL 7-18 [facility] Work Phone: [phone] Thin prep Papanicolaou smear with manual screeningon 01-21-2022 Thin prep Papanicolaou smear with manual screening 7 5-15 [facility] Work Phone: [phone] Basophil percentageon 2021 Bilirubin [Mass/Vol] 0.50 mg/dL 0.20-1.00 [facility] Work Phone: Comment on above: For patients on eltr ombopag therapy, use of [facility] TBIL is not recommended. Chloride [Moles/Vol] 102 mmol/L 98-107 [facility] Work Phone: Glucose [Mass/Vol] 109 mg/dL 74-106 [facility] Work Phone: Comment on above: Fasting Glucose resu lt from 100 to 125 mg/dL suggests IMPAIRED HOMEOSTASIS per A.D.A. criteria. Potassium [Moles/Vol] 4.2 mmol/L 3.5-5.1 [facility] Work Phone: Protein [Mass/Vol] 7.6 g/dL 6.4-8.2 [facility] Work Phone: Sodium [Moles/Vol] 136 mmol/L 136-145 [facility] Work Phone: Laboratory - Chemistry and C hemistry - challengeon 01-11-2022 ALP [Catalytic activity/Vol] 94 U/L 45-117 [facility] Work Phone: ALT [Catalytic activity/Vol] 20 U/L 13-56 [facility] Work Phone: CO2 [Moles/Vol] 29.0 mmol/L 21.0-32.0 [facility] Work Phone: Free T4 [Mass/Vol] 0.90 ng/dL 0.76-1.46 [facility] Work Phone: Globulin (S) [Mass/Vol] 4.2 g/dL 2.2-4.2 [facility] Work Phone: Magnesium [Mass/Vol] 2.0 mg/dL 1.6-2.6 [facility] Work Phone: Urea nitrogen/Creatinine [Mass ratio] 22.6 mg/mg 10-20 [facility] Work Phone: No Panel Informationon 01-11 Estimated GFR (MDRD) Amer 98 mL/min >60 [facility] Work Phone: Comment on above: GFR Calc Estimated GFR (MDRD) Non-Af Amer 81 mL/min >60 [facility] Work Phone: Comment on above: Non- GFR Calc Free Triiodothyronine (T3) pg/dL 3.5 pg/mL 2.18-3.98 [facility] Work Phone: Thyroid Stimulating Hormone (TSH) 2.25 uIU/mL 0.358-3.74 [facility] Work Phone: Vitamin D 25-Hydroxy 19.4 ng/mL [facility] Work Phone: Comment on above: Vitamin D 25(OH) Sta tus Range Deficiency <20 ng/mL (50nmol/L) Insufficiency 20 - 30 ng/mL (50 - 75 nmol/L) Sufficiency 30 - 100 ng/mL (75 - 250 nmol/L) Toxicity >100 ng/mL (>250 nmol/L) Serum or plasma albumin betsy urement (mass/volume)on 01-11-2022 Albumin [Mass/Vol] 3.4 g/dL 3.2-5.0 [facility] Work Phone: Serum or plasma albumin/glob ulin mass ratioon 01-11-2022 Albumin/Globulin [Mass ratio] 0.8 {ratio} 0.9-2.4 [facility] Work Phone: Serum or plasma calcium betsy urement (mass/volume)on 01-11-2022 Calcium [Mass/Vol] 9.5 mg/dL 8.5-10.1 [facility] Work Phone: [phone] Serum or plasma creatinine m easurement (mass/volume)on 01-11-2022 Creatinine [Mass/Vol] 0.75 mg/dL 0.55-1.02 [facility] Work Phone: Comment on above: The validity of the calculated GFR & GFRAA in patients over 70 years has not been determined. Clinical correlation is essential. Serum or plasma urea nitroge n measurement (mass/volume)on 01-11-2022 Urea nitrogen [Mass/Vol] 17 mg/dL 7-18 [facility] Work Phone: [phone] Thin prep Papanicolaou smear with manual screeningon 01-11-2022 Thin prep Papanicolaou smear with manual screening 14 U/L 15-37 [facility] Work Phone: Thin prep Papanicolaou smear with manual screening 5 5-15 [facility] Work Phone: XR CHEST 2 [...] 12/28/2021 12:02:56 AM Ordering Provider: JUAN JUAREZ [facility] ([place]) XR CHEST 2 VIEWSon 2 XR CHEST [...] 12/15/2021 8:57:36 AM Ordering Provider: JUAN JUAREZ [facility] ([place]) .GFRon 12-14-2021 GFR >60 Normal [facility] ([place]) Comment on above: Result Comment: GFR Population [...] GLURP, CLRP, NARP, BGRP, KRP, CARP #### [place] [address] GFR Non- >60 Normal [facility] ([place]) Comment on above: Result Comment: GFR Population [...] CLRP, NARP, BGRP, KRP, CARP #### [address] [address] BMPon 12-14-2021 BUN/Creatinine Ratio 32.6 ratio High 10.0-22.0 [facility] ([place]) Comment on above: Performed By: #### H CTRP, HGBRP, GLURP, CLRP, NARP, BGRP, KRP, CARP #### [address] [address] Calcium [Mass/Vol] 10.0 mg/dL Normal 8.7-10.4 [facility] ([place]) Comment on above: Performed By: #### H CTRP, HGBRP, GLURP, CLRP, NARP, BGRP, KRP, CARP #### [address] [address] Chloride [Moles/Vol] 99 mmol/L Normal 98-110 [facility] ([place]) Comment on above: Performed By: #### H CTRP, HGBRP, GLURP, CLRP, NARP, BGRP, KRP, CARP #### [address] [address] CO2 [Moles/Vol] 32 mmol/L Normal 22-32 [facility] ([place]) Comment on above: Performed By: #### H CTRP, HGBRP, GLURP, CLRP, NARP, BGRP, KRP, CARP #### [address] [address] Creatinine [Mass/Vol] 0.86 mg/dL Normal 0.50-1.20 [facility] ([place]) Comment on above: Performed By: #### H CTRP, HGBRP, GLURP, CLRP, NARP, BGRP, KRP, CARP #### [address] [address] Electrolyte Balance 6.0 mEq/L Normal 4.0-15.0 [facility] ([place]) Comment on above: Performed By: #### H CTRP, HGBRP, GLURP, CLRP, NARP, BGRP, KRP, CARP #### [address] [address] Glucose [Mass/Vol] 268 mg/dL High 82-115 [facility] ([place]) Comment on above: Performed By: #### H CTRP, HGBRP, GLURP, CLRP, NARP, BGRP, KRP, CARP #### [address] [address] Potassium [Moles/Vol] 5.0 mmol/L Normal 3.5-5.0 [facility] ([place]) Comment on above: Result Comment: Spec imen slightly hemolyzed. Performed By: #### H CTRP, HGBRP, GLURP, CLRP, NARP, BGRP, KRP, CARP #### [address] [address] Sodium [Moles/Vol] 137 mmol/L Normal 136-145 [facility] ([place]) Comment on above: Performed By: #### H CTRP, HGBRP, GLURP, CLRP, NARP, BGRP, KRP, CARP #### [address] [address] Urea nitrogen [Mass/Vol] 28.0 mg/dL High 8.0-22.0 [facility] ([place]) Comment on above: Performed By: #### H CTRP, HGBRP, GLURP, CLRP, NARP, BGRP, KRP, CARP #### [address] [address] LABORATORYOrdered By: SYSTEM SYSTEM on 12-13-2021 Calcium [...] NAT Mercado [facility] ([place]) .Auto Diffon 11-29-2021 Basophil, Absolute 0.1 10 3/mcL Normal 0.0-0.3 [facility] ([place]) Comment on above: Performed By: #### H CTRP, HGBRP, GLURP, CLRP, NARP, BGRP, KRP, CARP #### [address] [address] Basophils/100 WBC (Bld) 0.5 % Normal 0.0-2.5 [facility] ([place]) Comment on above: Performed By: #### H CTRP, HGBRP, GLURP, CLRP, NARP, BGRP, KRP, CARP #### [address] [address] Eosinophil, Absolute 0.7 10 3/mcL Normal 0.0-0.7 [facility] ([place]) Comment on above: Performed By: #### H CTRP, HGBRP, GLURP, CLRP, NARP, BGRP, KRP, CARP #### [address] [address] Eosinophils/100 WBC (Bld) 4.1 % Normal 0.0-6.0 [facility] ([place]) Comment on above: Performed By: #### H CTRP, HGBRP, GLURP, CLRP, NARP, BGRP, KRP, CARP #### [address] [address] Lymphocyte, Absolute 2.5 10 3/mcL Normal 0.9-4.3 [facility] ([place]) Comment on above: Performed By: #### H CTRP, HGBRP, GLURP, CLRP, NARP, BGRP, KRP, CARP #### [address] [address] Lymphocytes/100 WBC (Bld) 14.6 % Low 20.0-40.0 [facility] ([place]) Comment on above: Performed By: #### H CTRP, HGBRP, GLURP, CLRP, NARP, BGRP, KRP, CARP #### [address] [address] Monocyte, Absolute 1.2 10 3/mcL Normal 0.1-1.4 [facility] ([place]) Comment on above: Performed By: #### H CTRP, HGBRP, GLURP, CLRP, NARP, BGRP, KRP, CARP #### [address] [address] Monocytes/100 WBC (Bld) 6.8 % Normal 2.0-13.0 [facility] ([place]) Comment on above: Performed By: #### H CTRP, HGBRP, GLURP, CLRP, NARP, BGRP, KRP, CARP #### [address] [address] Neutrophils/100 WBC (Bld) 74.0 % Normal 50.0-75.0 [facility] ([place]) Comment on above: Performed By: #### H CTRP, HGBRP, GLURP, CLRP, NARP, BGRP, KRP, CARP #### [address] [address] .GFRon 11-29-2021 GFR Non- >60 Normal [facility] ([place]) Comment on above: Result Comment: GFR Population [...] CLRP, NARP, BGRP, KRP, CARP #### [address] [address] GFR >60 Normal [facility] ([place]) Comment on above: Result Comment: GFR Population [...] CLRP, NARP, BGRP, KRP, CARP #### [address] [address] .NEUABSon 11-29-2021 Neutrophil, Absolute 12.4 10 3/mcL High 2.3-8.1 [facility] ([place]) Comment on above: Performed By: #### H CTRP, HGBRP, GLURP, CLRP, NARP, BGRP, KRP, CARP #### [address] [address] BMPon 11-29-2021 BUN/Creatinine Ratio 23.2 ratio High 10.0-22.0 [facility] ([place]) Comment on above: Performed By: #### H CTRP, HGBRP, GLURP, CLRP, NARP, BGRP, KRP, CARP #### [address] [address] Calcium [Mass/Vol] 9.4 mg/dL Normal 8.7-10.4 [facility] ([place]) Comment on above: Performed By: #### H CTRP, HGBRP, GLURP, CLRP, NARP, BGRP, KRP, CARP #### [address] [address] Chloride [Moles/Vol] 92 mmol/L Low 98-110 [facility] ([place]) Comment on above: Performed By: #### H CTRP, HGBRP, GLURP, CLRP, NARP, BGRP, KRP, CARP #### [address] [address] CO2 [Moles/Vol] 34 mmol/L High 22-32 [facility] ([place]) Comment on above: Performed By: #### H CTRP, HGBRP, GLURP, CLRP, NARP, BGRP, KRP, CARP #### [address] [address] Creatinine [Mass/Vol] 0.82 mg/dL Normal 0.50-1.20 [facility] ([place]) Comment on above: Performed By: #### H CTRP, HGBRP, GLURP, CLRP, NARP, BGRP, KRP, CARP #### [address] [address] Electrolyte Balance 8.0 mEq/L Normal 4.0-15.0 [facility] ([place]) Comment on above: Performed By: #### H CTRP, HGBRP, GLURP, CLRP, NARP, BGRP, KRP, CARP #### [address] [address] Glucose [Mass/Vol] 168 mg/dL High 82-115 [facility] ([place]) Comment on above: Performed By: #### H CTRP, HGBRP, GLURP, CLRP, NARP, BGRP, KRP, CARP #### [address] [address] Potassium [Moles/Vol] 3.9 mmol/L Normal 3.5-5.0 [facility] ([place]) Comment on above: Performed By: #### H CTRP, HGBRP, GLURP, CLRP, NARP, BGRP, KRP, CARP #### [address] [address] Sodium [Moles/Vol] 134 mmol/L Low 136-145 [facility] ([place]) Comment on above: Performed By: #### H CTRP, HGBRP, GLURP, CLRP, NARP, BGRP, KRP, CARP #### [address] [address] Urea nitrogen [Mass/Vol] 19.0 mg/dL Normal 8.0-22.0 [facility] ([place]) Comment on above: Performed By: #### H CTRP, HGBRP, GLURP, CLRP, NARP, BGRP, KRP, CARP #### [address] [address] CBCon 11-29-2021 Erythrocyte distribution width (RBC) [Ratio] 14.2 % Normal 11.5-15.5 [facility] ([place]) Comment on above: Performed By: #### H CTRP, HGBRP, GLURP, CLRP, NARP, BGRP, KRP, CARP #### [place] [address] Hematocrit (Bld) [Volume fraction] 34.6 % Normal 34.0-46.0 [facility] ([place]) Comment on above: Performed By: #### H CTRP, HGBRP, GLURP, CLRP, NARP, BGRP, KRP, CARP #### [place] [address] Hgb 11.4 G/dL Low 12.0-16.0 [facility] ([place]) Comment on above: Performed By: #### H CTRP, HGBRP, GLURP, CLRP, NARP, BGRP, KRP, CARP #### [place] [address] MCH (RBC) [Entitic mass] 29.7 pg Normal 27.0-33.0 [facility] ([place]) Comment on above: Performed By: #### H CTRP, HGBRP, GLURP, CLRP, NARP, BGRP, KRP, CARP #### [place] [address] MCHC 32.9 G/dL Normal 32.0-36.0 [facility] ([place]) Comment on above: Performed By: #### H CTRP, HGBRP, GLURP, CLRP, NARP, BGRP, KRP, CARP #### [place] [id number] MCV (RBC) [Entitic vol] 90.5 fL Normal 80.0-99.0 [facility] ([place]) Comment on above: Performed By: #### H CTRP, HGBRP, GLURP, CLRP, NARP, BGRP, KRP, CARP #### [address] [address] Platelet 365 10 3/mcL Normal 150-450 [facility] ([place]) Comment on above: Performed By: #### H CTRP, HGBRP, GLURP, CLRP, NARP, BGRP, KRP, CARP #### [address] [address] Platelet mean volume (Bld) [Entitic vol] 8.1 fL Normal 6.6-10.5 [facility] ([place]) Comment on above: Performed By: #### H CTRP, HGBRP, GLURP, CLRP, NARP, BGRP, KRP, CARP #### [address] [address] RBC 3.82 10 6/mcL Low 4.10-5.30 [facility] ([place]) Comment on above: Performed By: #### H CTRP, HGBRP, GLURP, CLRP, NARP, BGRP, KRP, CARP #### [address] [address] WBC 16.8 10 3/mcL High 4.5-10.8 [facility] ([place]) Comment on above: Performed By: #### H CTRP, HGBRP, GLURP, CLRP, NARP, BGRP, KRP, CARP #### [address] [address] LABORATORYOrdered By: Dayo Sanabria on 11-29-2021 Blood Glucose Testing Reason Routine (11/29/21 11:55 AM) [facility] Work Phone: Glucose [Mass/Vol] 164 mg/dL Invalid Interpretation Code 82 - 115 mg/dL [facility] Work Phone: Comment on above: Result Comment: LARS Buckley LABORATORYOrdered By: Rodney Nam on 11-29-2021 Blood Glucose Testing Reason Routine (11/29/21 7:28 AM) [facility] Work Phone: Glucose [Mass/Vol] 174 mg/dL Invalid Interpretation Code 82 - 115 mg/dL [facility] Work Phone: LABORATORYOrdered By: SYSTEM SYSTEM [...] Basophil, Absolute 0.1 10 3/mcL Normal 0.0-0.3 [facility] ([place]) Comment on above: Performed By: #### H CTRP, HGBRP, GLURP, CLRP, NARP, BGRP, KRP, CARP #### [address] [address] Basophils/100 WBC (Bld) 0.8 % Normal 0.0-2.5 [facility] ([place]) Comment on above: Performed By: #### H CTRP, HGBRP, GLURP, CLRP, NARP, BGRP, KRP, CARP #### [address] [address] Eosinophil, Absolute 0.4 10 3/mcL Normal 0.0-0.7 [facility] ([place]) Comment on above: Performed By: #### H CTRP, HGBRP, GLURP, CLRP, NARP, BGRP, KRP, CARP #### [address] [address] Eosinophils/100 WBC (Bld) 2.9 % Normal 0.0-6.0 [facility] ([place]) Comment on above: Performed By: #### H CTRP, HGBRP, GLURP, CLRP, NARP, BGRP, KRP, CARP #### [address] [address] Lymphocyte, Absolute 2.0 10 3/mcL Normal 0.9-4.3 [facility] ([place]) Comment on above: Performed By: #### H CTRP, HGBRP, GLURP, CLRP, NARP, BGRP, KRP, CARP #### [address] [address] Lymphocytes/100 WBC (Bld) 13.5 % Low 20.0-40.0 [facility] ([place]) Comment on above: Performed By: #### H CTRP, HGBRP, GLURP, CLRP, NARP, BGRP, KRP, CARP #### [address] [address] Monocyte, Absolute 1.1 10 3/mcL Normal 0.1-1.4 [facility] ([place]) Comment on above: Performed By: #### H CTRP, HGBRP, GLURP, CLRP, NARP, BGRP, KRP, CARP #### [address] [address] Monocytes/100 WBC (Bld) 7.7 % Normal 2.0-13.0 [facility] ([place]) Comment on above: Performed By: #### H CTRP, HGBRP, GLURP, CLRP, NARP, BGRP, KRP, CARP #### [address] [address] Neutrophils/100 WBC (Bld) 75.1 % High 50.0-75.0 [facility] ([place]) Comment on above: Performed By: #### H CTRP, HGBRP, GLURP, CLRP, NARP, BGRP, KRP, CARP #### [address] [address] .GFRon 11-28-2021 GFR >60 Normal [facility] ([place]) Comment on above: Result Comment: GFR Population [...] CLRP, NARP, BGRP, KRP, CARP #### [address] [address] GFR Non- >60 Normal [facility] ([place]) Comment on above: Result Comment: GFR Population [...] CLRP, NARP, BGRP, KRP, CARP #### [address] [address] .NEUABSon 11-28-2021 Neutrophil, Absolute 11.2 10 3/mcL High 2.3-8.1 [facility] ([place]) Comment on above: Performed By: #### H CTRP, HGBRP, GLURP, CLRP, NARP, BGRP, KRP, CARP #### [place] [address] BGon 11-28-2021 Barometric Pressure 701 mmHg Normal [facility] ([place]) Comment on above: Performed By: #### H CTRP, HGBRP, GLURP, CLRP, NARP, BGRP, KRP, CARP #### [place] [address] Base excess Calc (Bld) [Moles/Vol] 9.8 mmol/L Normal [facility] ([place]) Comment on above: Performed By: #### H CTRP, HGBRP, GLURP, CLRP, NARP, BGRP, KRP, CARP #### [place] [address] CO2 [Moles/Vol] 36.7 mmol/L High 22.0-30.0 [facility] ([place]) Comment on above: Performed By: #### H CTRP, HGBRP, GLURP, CLRP, NARP, BGRP, KRP, CARP #### [place] [address] HCO3 (Bld) [Moles/Vol] 35.1 mmol/L High 21.0-29.0 [facility] ([place]) Comment on above: Performed By: #### H CTRP, HGBRP, GLURP, CLRP, NARP, BGRP, KRP, CARP #### [address] [address] Oxygen (Bld) [Partial pressure] 70.5 mm[Hg] Low 74.0-108.0 [facility] ([place]) Comment on above: Performed By: #### H CTRP, HGBRP, GLURP, CLRP, NARP, BGRP, KRP, CARP #### [address] [address] Oxygen saturation in Blood 94.9 % Normal 92.0-96.0 [facility] ([place]) Comment on above: Performed By: #### H CTRP, HGBRP, GLURP, CLRP, NARP, BGRP, KRP, CARP #### [address] [address] pCO2 50.4 mmHg High 32.0-46.0 [facility] ([place]) Comment on above: Performed By: #### H CTRP, HGBRP, GLURP, CLRP, NARP, BGRP, KRP, CARP #### [address] [address] pH (Bld) 7.461 [pH] High 7.380-7.460 [facility] ([place]) Comment on above: Performed By: #### H CTRP, HGBRP, GLURP, CLRP, NARP, BGRP, KRP, CARP #### [address] [address] BMPon 11-28-2021 BUN/Creatinine Ratio 23.3 ratio High 10.0-22.0 [facility] ([place]) Comment on above: Performed By: #### H CTRP, HGBRP, GLURP, CLRP, NARP, BGRP, KRP, CARP #### [address] [address] Calcium [Mass/Vol] 9.0 mg/dL Normal 8.7-10.4 [facility] ([place]) Comment on above: Performed By: #### H CTRP, HGBRP, GLURP, CLRP, NARP, BGRP, KRP, CARP #### [address] [address] Chloride [Moles/Vol] 92 mmol/L Low 98-110 [facility] ([place]) Comment on above: Performed By: #### H CTRP, HGBRP, GLURP, CLRP, NARP, BGRP, KRP, CARP #### [address] [address] CO2 [Moles/Vol] 37 mmol/L High 22-32 [facility] ([place]) Comment on above: Performed By: #### H CTRP, HGBRP, GLURP, CLRP, NARP, BGRP, KRP, CARP #### [address] [address] Creatinine [Mass/Vol] 0.90 mg/dL Normal 0.50-1.20 [facility] ([place]) Comment on above: Performed By: #### H CTRP, HGBRP, GLURP, CLRP, NARP, BGRP, KRP, CARP #### [address] [address] Electrolyte Balance 6.0 mEq/L Normal 4.0-15.0 [facility] ([place]) Comment on above: Performed By: #### H CTRP, HGBRP, GLURP, CLRP, NARP, BGRP, KRP, CARP #### [address] [address] Glucose [Mass/Vol] 208 mg/dL High 82-115 [facility] ([place]) Comment on above: Performed By: #### H CTRP, HGBRP, GLURP, CLRP, NARP, BGRP, KRP, CARP #### [address] [address] Potassium [Moles/Vol] 3.7 mmol/L Normal 3.5-5.0 [facility] ([place]) Comment on above: Performed By: #### H CTRP, HGBRP, GLURP, CLRP, NARP, BGRP, KRP, CARP #### [place] [address] Sodium [Moles/Vol] 135 mmol/L Low 136-145 [facility] ([place]) Comment on above: Performed By: #### H CTRP, HGBRP, GLURP, CLRP, NARP, BGRP, KRP, CARP #### [place] [address] Urea nitrogen [Mass/Vol] 21.0 mg/dL Normal 8.0-22.0 [facility] ([place]) Comment on above: Performed By: #### H CTRP, HGBRP, GLURP, CLRP, NARP, BGRP, KRP, CARP #### [place] [address] CBCon 11-28-2021 Erythrocyte distribution width (RBC) [Ratio] 14.1 % Normal 11.5-15.5 [facility] ([place]) Comment on above: Performed By: #### H CTRP, HGBRP, GLURP, CLRP, NARP, BGRP, KRP, CARP #### [place] [address] Hematocrit (Bld) [Volume fraction] 34.4 % Normal 34.0-46.0 [facility] ([place]) Comment on above: Performed By: #### H CTRP, HGBRP, GLURP, CLRP, NARP, BGRP, KRP, CARP #### [place] [address] Hgb 11.2 G/dL Low 12.0-16.0 [facility] ([place]) Comment on above: Performed By: #### H CTRP, HGBRP, GLURP, CLRP, NARP, BGRP, KRP, CARP #### [place] [phone] MCH (RBC) [Entitic mass] 29.5 pg Normal 27.0-33.0 [facility] ([place]) Comment on above: Performed By: #### H CTRP, HGBRP, GLURP, CLRP, NARP, BGRP, KRP, CARP #### [place] [address] MCHC 32.6 G/dL Normal 32.0-36.0 [facility] ([place]) Comment on above: Performed By: #### H CTRP, HGBRP, GLURP, CLRP, NARP, BGRP, KRP, CARP #### [place] [address] MCV (RBC) [Entitic vol] 90.5 fL Normal 80.0-99.0 [facility] ([place]) Comment on above: Performed By: #### H CTRP, HGBRP, GLURP, CLRP, NARP, BGRP, KRP, CARP #### [place] [address] Platelet 353 10 3/mcL Normal 150-450 [facility] ([place]) Comment on above: Performed By: #### H CTRP, HGBRP, GLURP, CLRP, NARP, BGRP, KRP, CARP #### [place] [address] Platelet mean volume (Bld) [Entitic vol] 7.9 fL Normal 6.6-10.5 [facility] ([place]) Comment on above: Performed By: #### H CTRP, HGBRP, GLURP, CLRP, NARP, BGRP, KRP, CARP #### [place] [address] RBC 3.80 10 6/mcL Low 4.10-5.30 [facility] ([place]) Comment on above: Performed By: #### H CTRP, HGBRP, GLURP, CLRP, NARP, BGRP, KRP, CARP #### [place] [address] WBC 14.9 10 3/mcL High 4.5-10.8 [facility] ([place]) Comment on above: Performed By: #### H CTRP, HGBRP, GLURP, CLRP, NARP, BGRP, KRP, CARP #### [place] [id number] CVFLURVon 11-28-2021 Date of Onset [id number] Invalid Interpretation Code [facility] ([place]) Comment on above: Performed By: #### H CTRP, HGBRP, GLURP, CLRP, NARP, BGRP, KRP, CARP #### [place] [address] Employed in Healthcare No On license of [facility] ([place]) Comment on above: Performed By: #### H CTRP, HGBRP, GLURP, CLRP, NARP, BGRP, KRP, CARP #### [place] [address] First Test No [facility] ([place]) Comment on above: Performed By: #### H CTRP, HGBRP, GLURP, CLRP, NARP, BGRP, KRP, CARP #### [place] [address] FLU A PCR Negative Normal Negative [facility] ([place]) Comment on above: Result Comment: Note s Performed By: #### H CTRP, HGBRP, GLURP, CLRP, NARP, BGRP, KRP, CARP #### [place] [address] FLU B PCR Negative Normal Negative [facility] ([place]) Comment on above: Result Comment: Note s Performed By: #### H CTRP, HGBRP, GLURP, CLRP, NARP, BGRP, KRP, CARP #### [place] [address] Hospitalized Yes [facility] ([place]) Comment on above: Performed By: #### H CTRP, HGBRP, GLURP, CLRP, NARP, BGRP, KRP, CARP #### [place] [address] ICU No [facility] ([place]) Comment on above: Performed By: #### H CTRP, HGBRP, GLURP, CLRP, NARP, BGRP, KRP, CARP #### [place] [address] Not [facility] ([place]) Comment on above: Performed By: #### H CTRP, HGBRP, GLURP, CLRP, NARP, BGRP, KRP, CARP #### [place] [address] Resides in Congregate Care Setting No Normal [facility] ([place]) Comment on above: Performed By: #### H CTRP, HGBRP, GLURP, CLRP, NARP, BGRP, KRP, CARP #### [place] [address] RSV PCR Negative Normal Negative [facility] ([place]) Comment on above: Result Comment: Note s Performed By: #### H CTRP, HGBRP, GLURP, CLRP, NARP, BGRP, KRP, CARP #### [place] [address] SARS-CoV-2 (COVID-19) RNA SLOAN+probe Ql (Unsp spec) Negative Normal Negative [facility] ([place]) Comment on above: Result Comment: Note s [...] GLURP, CLRP, NARP, BGRP, KRP, CARP #### [place] [id number] [place] [address] Symptomatic as Defined by CDC No Normal [facility] ([place]) Comment on above: Performed By: #### H CTRP, HGBRP, GLURP, CLRP, NARP, BGRP, KRP, CARP #### [place] [id number] [place] [address] LABORATORYOrdered By: Coleen Mckeon on 11-28-2021 Glucose [Mass/Vol] 159 mg/dL Invalid Interpretation Code 82 - 115 mg/dL [facility] Work Phone: LABORATORYOrdered By: Betty Awad [...] Glucose Testing Reason Routine (11/28/21 4:40 PM) [facility] Work Phone: LABORATORYOrdered By: SYSTEM SYSTEM [...] 11/28/2021 8:13:29 AM Ordering Provider: KAELYN DREW [facility] ([place]) .Auto Diffon 11-27-2021 Basophil, Absolute 0.1 10 3/mcL Normal 0.0-0.3 [facility] ([place]) Comment on above: Performed By: #### H CTRP, HGBRP, GLURP, CLRP, NARP, BGRP, KRP, CARP #### [address] [address] Basophils/100 WBC (Bld) 0.5 % Normal 0.0-2.5 [facility] ([place]) Comment on above: Performed By: #### H CTRP, HGBRP, GLURP, CLRP, NARP, BGRP, KRP, CARP #### [address] [address] Eosinophil, Absolute 0.4 10 3/mcL Normal 0.0-0.7 [facility] ([place]) Comment on above: Performed By: #### H CTRP, HGBRP, GLURP, CLRP, NARP, BGRP, KRP, CARP #### [address] [address] Eosinophils/100 WBC (Bld) 2.0 % Normal 0.0-6.0 [facility] ([place]) Comment on above: Performed By: #### H CTRP, HGBRP, GLURP, CLRP, NARP, BGRP, KRP, CARP #### [address] [address] Lymphocyte, Absolute 2.2 10 3/mcL Normal 0.9-4.3 [facility] ([place]) Comment on above: Performed By: #### H CTRP, HGBRP, GLURP, CLRP, NARP, BGRP, KRP, CARP #### [address] [address] Lymphocytes/100 WBC (Bld) 11.6 % Low 20.0-40.0 [facility] ([place]) Comment on above: Performed By: #### H CTRP, HGBRP, GLURP, CLRP, NARP, BGRP, KRP, CARP #### [address] [address] Monocyte, Absolute 1.3 10 3/mcL Normal 0.1-1.4 [facility] ([place] Comment on above: Performed By: #### H CTRP, HGBRP, GLURP, CLRP, NARP, BGRP, KRP, CARP #### [address] [address] Monocytes/100 WBC (Bld) 6.7 % Normal 2.0-13.0 [facility] ([place]) Comment on above: Performed By: #### H CTRP, HGBRP, GLURP, CLRP, NARP, BGRP, KRP, CARP #### [address] [address] Neutrophils/100 WBC (Bld) 79.2 % High 50.0-75.0 [facility] ([place]) Comment on above: Performed By: #### H CTRP, HGBRP, GLURP, CLRP, NARP, BGRP, KRP, CARP #### [address] [address] .GFRon 11-27-2021 GFR >60 Normal [facility] ([place]) Comment on above: Result Comment: GFR Population [...] CLRP, NARP, BGRP, KRP, CARP #### [address] [address] GFR Non- >60 Normal [facility] ([place]) Comment on above: Result Comment: GFR Population [...] GLURP, CLRP, NARP, BGRP, KRP, CARP #### [place] [address] .NEUABSon 11-27-2021 Neutrophil, Absolute 15.1 10 3/mcL High 2.3-8.1 [facility] ([place]) Comment on above: Performed By: #### H CTRP, HGBRP, GLURP, CLRP, NARP, BGRP, KRP, CARP #### [place] [address] BGon 11-27-2021 Barometric Pressure 733 mmHg Normal [facility] ([place]) Comment on above: Performed By: #### H CTRP, HGBRP, GLURP, CLRP, NARP, BGRP, KRP, CARP #### [place] [address] Base excess Calc (Bld) [Moles/Vol] 10.2 mmol/L Normal [facility] ([place]) Comment on above: Performed By: #### H CTRP, HGBRP, GLURP, CLRP, NARP, BGRP, KRP, CARP #### [place] [address] CO2 [Moles/Vol] 38.8 mmol/L High 22.0-30.0 [facility] ([place]) Comment on above: Performed By: #### H CTRP, HGBRP, GLURP, CLRP, NARP, BGRP, KRP, CARP #### [address] [address] HCO3 (Bld) [Moles/Vol] 37.1 mmol/L High 21.0-29.0 [facility] ([place]) Comment on above: Performed By: #### H CTRP, HGBRP, GLURP, CLRP, NARP, BGRP, KRP, CARP #### [place] [phone] Oxygen (Bld) [Partial pressure] 74.1 mm[Hg] Normal 74.0-108.0 [facility] ([place]) Comment on above: Performed By: #### H CTRP, HGBRP, GLURP, CLRP, NARP, BGRP, KRP, CARP #### [place] [address] Oxygen saturation in Blood 94.8 % Normal 92.0-96.0 [facility] ([place]) Comment on above: Performed By: #### H CTRP, HGBRP, GLURP, CLRP, NARP, BGRP, KRP, CARP #### [address] [address] pCO2 58.3 mmHg High 32.0-46.0 [facility] ([place]) Comment on above: Performed By: #### H CTRP, HGBRP, GLURP, CLRP, NARP, BGRP, KRP, CARP #### [place] [address] pH (Bld) 7.421 [pH] Normal 7.380-7.460 [facility] ([place]) Comment on above: Performed By: #### H CTRP, HGBRP, GLURP, CLRP, NARP, BGRP, KRP, CARP #### [address] [address] CBCon 11-27-2021 Erythrocyte distribution width (RBC) [Ratio] 13.6 % Normal 11.5-15.5 [facility] ([place]) Comment on above: Performed By: #### H CTRP, HGBRP, GLURP, CLRP, NARP, BGRP, KRP, CARP #### [place] [phone] Hematocrit (Bld) [Volume fraction] 35.1 % Normal 34.0-46.0 [facility] ([place]) Comment on above: Performed By: #### H CTRP, HGBRP, GLURP, CLRP, NARP, BGRP, KRP, CARP #### [place] [address] Hgb 11.6 G/dL Low 12.0-16.0 [facility] ([place]) Comment on above: Performed By: #### H CTRP, HGBRP, GLURP, CLRP, NARP, BGRP, KRP, CARP #### [place] [phone] MCH (RBC) [Entitic mass] 29.7 pg Normal 27.0-33.0 [facility] ([place]) Comment on above: Performed By: #### H CTRP, HGBRP, GLURP, CLRP, NARP, BGRP, KRP, CARP #### [place] [address] MCHC 32.9 G/dL Normal 32.0-36.0 [facility] ([place]) Comment on above: Performed By: #### H CTRP, HGBRP, GLURP, CLRP, NARP, BGRP, KRP, CARP #### [place] [phone] MCV (RBC) [Entitic vol] 90.3 fL Normal 80.0-99.0 [facility] ([place]) Comment on above: Performed By: #### H CTRP, HGBRP, GLURP, CLRP, NARP, BGRP, KRP, CARP #### [place] [id number] Platelet 322 10 3/mcL Normal 150-450 [facility] ([place]) Comment on above: Performed By: #### H CTRP, HGBRP, GLURP, CLRP, NARP, BGRP, KRP, CARP #### [place] [phone] Platelet mean volume (Bld) [Entitic vol] 8.0 fL Normal 6.6-10.5 [facility] ([place]) Comment on above: Performed By: #### H CTRP, HGBRP, GLURP, CLRP, NARP, BGRP, KRP, CARP #### [address] [address] RBC 3.89 10 6/mcL Low 4.10-5.30 [facility] ([place]) Comment on above: Performed By: #### H CTRP, HGBRP, GLURP, CLRP, NARP, BGRP, KRP, CARP #### [address] [address] WBC 19.1 10 3/mcL High 4.5-10.8 [facility] ([place]) Comment on above: Performed By: #### H CTRP, HGBRP, GLURP, CLRP, NARP, BGRP, KRP, CARP #### [address] [address] CMPon 11-27-2021 Albumin Level 3.4 G/dL Normal 3.2-4.8 [facility] ([place]) Comment on above: Performed By: #### H CTRP, HGBRP, GLURP, CLRP, NARP, BGRP, KRP, CARP #### [address] [address] Albumin/Globulin [Mass ratio] 1.0 {ratio} Normal 0.9-1.6 [facility] ([place]) Comment on above: Performed By: #### H CTRP, HGBRP, GLURP, CLRP, NARP, BGRP, KRP, CARP #### [address] [address] ALP [Catalytic activity/Vol] 79 U/L Normal 38-126 [facility] ([place]) Comment on above: Performed By: #### H CTRP, HGBRP, GLURP, CLRP, NARP, BGRP, KRP, CARP #### [address] [address] ALT [Catalytic activity/Vol] 20 U/L Normal 10-49 [facility] ([place]) Comment on above: Performed By: #### H CTRP, HGBRP, GLURP, CLRP, NARP, BGRP, KRP, CARP #### [address] [address] AST [Catalytic activity/Vol] 20 U/L Normal 8-34 [facility] ([place]) Comment on above: Performed By: #### H CTRP, HGBRP, GLURP, CLRP, NARP, BGRP, KRP, CARP #### [address] [address] Bili Total 0.80 mg/dL Normal 0.20-1.20 [facility] ([place]) Comment on above: Result Comment: Use of this assay is not recommended for patients undergoing treatment with eltrombopag due to the potential for falsely elevated results. Performed By: #### H CTRP, HGBRP, GLURP, CLRP, NARP, BGRP, KRP, CARP #### [place] [id number] BUN/Creatinine Ratio 21.4 ratio Normal 10.0-22.0 [facility] ([place] Comment on above: Performed By: #### H CTRP, HGBRP, GLURP, CLRP, NARP, BGRP, KRP, CARP #### [address] [address] Calcium [Mass/Vol] 9.0 mg/dL Normal 8.7-10.4 [facility] ([place]) Comment on above: Performed By: #### H CTRP, HGBRP, GLURP, CLRP, NARP, BGRP, KRP, CARP #### [address] [address] Chloride [Moles/Vol] 96 mmol/L Low 98-110 [facility] ([place] Comment on above: Performed By: #### H CTRP, HGBRP, GLURP, CLRP, NARP, BGRP, KRP, CARP #### [address] [address] CO2 [Moles/Vol] 33 mmol/L High 22-32 [facility] ([place]) Comment on above: Performed By: #### H CTRP, HGBRP, GLURP, CLRP, NARP, BGRP, KRP, CARP #### [address] [address] Creatinine [Mass/Vol] 0.70 mg/dL Normal 0.50-1.20 [facility] ([place]) Comment on above: Performed By: #### H CTRP, HGBRP, GLURP, CLRP, NARP, BGRP, KRP, CARP #### [address] [address] Electrolyte Balance 6.0 mEq/L Normal 4.0-15.0 [facility] ([place]) Comment on above: Performed By: #### H CTRP, HGBRP, GLURP, CLRP, NARP, BGRP, KRP, CARP #### [address] [address] Globulin 3.4 G/dL Normal 1.5-3.8 [facility] ([place]) Comment on above: Performed By: #### H CTRP, HGBRP, GLURP, CLRP, NARP, BGRP, KRP, CARP #### [address] [address] Glucose [Mass/Vol] 142 mg/dL High 82-115 [facility] ([place]) Comment on above: Performed By: #### H CTRP, HGBRP, GLURP, CLRP, NARP, BGRP, KRP, CARP #### [address] [address] Potassium [Moles/Vol] 4.1 mmol/L Normal 3.5-5.0 [facility] ([place]) Comment on above: Performed By: #### H CTRP, HGBRP, GLURP, CLRP, NARP, BGRP, KRP, CARP #### [address] [address] Sodium [Moles/Vol] 135 mmol/L Low 136-145 [facility] ([place]) Comment on above: Performed By: #### H CTRP, HGBRP, GLURP, CLRP, NARP, BGRP, KRP, CARP #### [address] [address] Total Protein 6.8 G/dL Normal 5.7-8.2 [facility] ([place]) Comment on above: Result Comment: No te - New Reference Range in effect 19 Performed By: #### H CTRP, HGBRP, GLURP, CLRP, NARP, BGRP, KRP, CARP #### [address] [address] Urea nitrogen [Mass/Vol] 15.0 mg/dL Normal 8.0-22.0 [facility] ([place]) Comment on above: Performed By: #### H CTRP, HGBRP, GLURP, CLRP, NARP, BGRP, KRP, CARP #### [address] [address] LABORATORYOrdered By: SYSTEM SYSTEM on 11-27-2021 Albumin [...] NAT Mercado [facility] ([place]) .Auto Diffon 11-26-2021 Basophil, Absolute 0.1 10 3/mcL Normal 0.0-0.3 [facility] ([place]) Basophils/100 WBC (Bld) 0.4 % Normal 0.0-2.5 [facility] ([place]) Eosinophil, Absolute 0.1 10 3/mcL Normal 0.0-0.7 [facility] ([place]) Eosinophils/100 WBC (Bld) 0.7 % Normal 0.0-6.0 [facility] ([place]) Lymphocyte, Absolute 2.2 10 3/mcL Normal 0.9-4.3 [facility] ([place]) Lymphocytes/100 WBC (Bld) 11.0 % Low 20.0-40.0 [facility] ([place]) Monocyte, Absolute 1.5 10 3/mcL High 0.1-1.4 [facility] ([place]) Monocytes/100 WBC (Bld) 7.4 % Normal 2.0-13.0 [facility] ([place]) Neutrophils/100 WBC (Bld) 80.5 % High 50.0-75.0 [facility] ([place]) Basophil, Absolute 0.1 10 3/mcL Normal 0.0-0.3 [facility] ([place]) Comment on above: Performed By: #### H CTRP, HGBRP, GLURP, CLRP, NARP, BGRP, KRP, CARP #### [address] [address] Basophils/100 WBC (Bld) 0.4 % Normal 0.0-2.5 [facility] ([place]) Comment on above: Performed By: #### H CTRP, HGBRP, GLURP, CLRP, NARP, BGRP, KRP, CARP #### [address] [address] Eosinophil, Absolute 0.1 10 3/mcL Normal 0.0-0.7 [facility] ([place]) Comment on above: Performed By: #### H CTRP, HGBRP, GLURP, CLRP, NARP, BGRP, KRP, CARP #### [address] [address] Eosinophils/100 WBC (Bld) 0.5 % Normal 0.0-6.0 [facility] ([place]) Comment on above: Performed By: #### H CTRP, HGBRP, GLURP, CLRP, NARP, BGRP, KRP, CARP #### [address] [address] Lymphocyte, Absolute 2.0 10 3/mcL Normal 0.9-4.3 [facility] ([place]) Comment on above: Performed By: #### H CTRP, HGBRP, GLURP, CLRP, NARP, BGRP, KRP, CARP #### [address] [address] Lymphocytes/100 WBC (Bld) 10.0 % Low 20.0-40.0 [facility] ([place]) Comment on above: Performed By: #### H CTRP, HGBRP, GLURP, CLRP, NARP, BGRP, KRP, CARP #### [address] [address] Monocyte, Absolute 1.5 10 3/mcL High 0.1-1.4 [facility] ([place] Comment on above: Performed By: #### H CTRP, HGBRP, GLURP, CLRP, NARP, BGRP, KRP, CARP #### [address] [address] Monocytes/100 WBC (Bld) 7.5 % Normal 2.0-13.0 [facility] ([place]) Comment on above: Performed By: #### H CTRP, HGBRP, GLURP, CLRP, NARP, BGRP, KRP, CARP #### [address] [address] Neutrophils/100 WBC (Bld) 81.6 % High 50.0-75.0 [facility] ([place]) Comment on above: Performed By: #### H CTRP, HGBRP, GLURP, CLRP, NARP, BGRP, KRP, CARP #### [address] [address] .GFRon 11-26-2021 GFR >60 Normal [facility] ([place]) Comment on above: Result Comment: GFR Population [...] CLRP, NARP, BGRP, KRP, CARP #### [address] [address] GFR Non- >60 Normal [facility] ([place]) Comment on above: Result Comment: GFR Population [...] CLRP, NARP, BGRP, KRP, CARP #### [address] [address] .NEUABSon 11-26-2021 Neutrophil, Absolute 16.0 10 3/mcL High 2.3-8.1 [facility] ([place]) Neutrophil, Absolute 16.6 10 3/mcL High 2.3-8.1 [facility] ([place]) Comment on above: Performed By: #### H CTRP, HGBRP, GLURP, CLRP, NARP, BGRP, KRP, CARP #### [address] [address] [facility] 11-26-2021 Barometric Pressure 734 mmHg Normal [facility] ([place]) Comment on above: Performed By: #### H CTRP, HGBRP, GLURP, CLRP, NARP, BGRP, KRP, CARP #### [place] [address] Base excess Calc (Bld) [Moles/Vol] 11.2 mmol/L Normal [facility] ([place]) Comment on above: Performed By: #### H CTRP, HGBRP, GLURP, CLRP, NARP, BGRP, KRP, CARP #### [place] [address] CO2 [Moles/Vol] 39.8 mmol/L High 22.0-30.0 [facility] ([place]) Comment on above: Performed By: #### H CTRP, HGBRP, GLURP, CLRP, NARP, BGRP, KRP, CARP #### [address] [address] HCO3 (Bld) [Moles/Vol] 38.0 mmol/L High 21.0-29.0 [facility] ([place]) Comment on above: Performed By: #### H CTRP, HGBRP, GLURP, CLRP, NARP, BGRP, KRP, CARP #### [place] [phone] Oxygen (Bld) [Partial pressure] 68.4 mm[Hg] Low 74.0-108.0 [facility] ([place]) Comment on above: Performed By: #### H CTRP, HGBRP, GLURP, CLRP, NARP, BGRP, KRP, CARP #### [address] [address] Oxygen saturation in Blood 93.8 % Normal 92.0-96.0 [facility] ([place]) Comment on above: Performed By: #### H CTRP, HGBRP, GLURP, CLRP, NARP, BGRP, KRP, CARP #### [address] [address] pCO2 57.9 mmHg High 32.0-46.0 [facility] ([place]) Comment on above: Performed By: #### H CTRP, HGBRP, GLURP, CLRP, NARP, BGRP, KRP, CARP #### [address] [address] pH (Bld) 7.435 [pH] Normal 7.380-7.460 [facility] ([place]) Comment on above: Performed By: #### H CTRP, HGBRP, GLURP, CLRP, NARP, BGRP, KRP, CARP #### [address] [address] Barometric Pressure 711 mmHg Normal [facility] ([place]) Comment on above: Performed By: #### H CTRP, HGBRP, GLURP, CLRP, NARP, BGRP, KRP, CARP #### [address] [address] Base excess Calc (Bld) [Moles/Vol] 3.2 mmol/L Normal [facility] ([place]) Comment on above: Performed By: #### H CTRP, HGBRP, GLURP, CLRP, NARP, BGRP, KRP, CARP #### [address] [address] CO2 [Moles/Vol] 30.3 mmol/L High 22.0-30.0 [facility] ([place]) Comment on above: Performed By: #### H CTRP, HGBRP, GLURP, CLRP, NARP, BGRP, KRP, CARP #### [address] [address] HCO3 (Bld) [Moles/Vol] 28.8 mmol/L Normal 21.0-29.0 [facility] ([place]) Comment on above: Performed By: #### H CTRP, HGBRP, GLURP, CLRP, NARP, BGRP, KRP, CARP #### [address] [address] Oxygen (Bld) [Partial pressure] 103.1 mm[Hg] Normal 74.0-108.0 [facility] ([place]) Comment on above: Performed By: #### H CTRP, HGBRP, GLURP, CLRP, NARP, BGRP, KRP, CARP #### [address] [address] Oxygen saturation in Blood 97.9 % High 92.0-96.0 [facility] ([place]) Comment on above: Performed By: #### H CTRP, HGBRP, GLURP, CLRP, NARP, BGRP, KRP, CARP #### [address] [address] pCO2 48.2 mmHg High 32.0-46.0 [facility] ([place]) Comment on above: Performed By: #### H CTRP, HGBRP, GLURP, CLRP, NARP, BGRP, KRP, CARP #### [address] [address] pH (Bld) 7.394 [pH] Normal 7.380-7.460 [facility] ([place]) Comment on above: Performed By: #### H CTRP, HGBRP, GLURP, CLRP, NARP, BGRP, KRP, CARP #### [address] [address] BMPon 11-26-2021 BUN/Creatinine Ratio 26.5 ratio High 10.0-22.0 [facility] ([place]) Comment on above: Performed By: #### H CTRP, HGBRP, GLURP, CLRP, NARP, BGRP, KRP, CARP #### [address] [address] Calcium [Mass/Vol] 8.3 mg/dL Low 8.7-10.4 [facility] ([place]) Comment on above: Performed By: #### H CTRP, HGBRP, GLURP, CLRP, NARP, BGRP, KRP, CARP #### [address] [address] Chloride [Moles/Vol] 98 mmol/L Normal 98-110 [facility] ([place] Comment on above: Performed By: #### H CTRP, HGBRP, GLURP, CLRP, NARP, BGRP, KRP, CARP #### [address] [address] CO2 [Moles/Vol] 28 mmol/L Normal 22-32 [facility] ([place]) Comment on above: Performed By: #### H CTRP, HGBRP, GLURP, CLRP, NARP, BGRP, KRP, CARP #### [address] [address] Creatinine [Mass/Vol] 0.68 mg/dL Normal 0.50-1.20 [facility] ([place]) Comment on above: Performed By: #### H CTRP, HGBRP, GLURP, CLRP, NARP, BGRP, KRP, CARP #### [address] [address] Electrolyte Balance 7.0 mEq/L Normal 4.0-15.0 [facility] ([place]) Comment on above: Performed By: #### H CTRP, HGBRP, GLURP, CLRP, NARP, BGRP, KRP, CARP #### [address] [address] Glucose [Mass/Vol] 176 mg/dL High 82-115 [facility] ([place]) Comment on above: Performed By: #### H CTRP, HGBRP, GLURP, CLRP, NARP, BGRP, KRP, CARP #### [address] [address] Potassium [Moles/Vol] 4.2 mmol/L Normal 3.5-5.0 [facility] ([place]) Comment on above: Performed By: #### H CTRP, HGBRP, GLURP, CLRP, NARP, BGRP, KRP, CARP #### [address] [address] Sodium [Moles/Vol] 133 mmol/L Low 136-145 [facility] ([place]) Comment on above: Performed By: #### H CTRP, HGBRP, GLURP, CLRP, NARP, BGRP, KRP, CARP #### [address] [address] Urea nitrogen [Mass/Vol] 18.0 mg/dL Normal 8.0-22.0 [facility] ([place]) Comment on above: Performed By: #### H CTRP, HGBRP, GLURP, CLRP, NARP, BGRP, KRP, CARP #### [address] [address] CBCon 11-26-2021 Erythrocyte distribution width (RBC) [Ratio] 14.1 % Normal 11.5-15.5 [facility]) Hematocrit (Bld) [Volume fraction] 31.3 % Low 34.0-46.0 [facility] ([place]) Hgb 10.5 G/dL Low 12.0-16.0 [facility] ([place]) MCH (RBC) [Entitic mass] 30.1 pg Normal 27.0-33.0 [facility] ([place]) MCHC 33.5 G/dL Normal 32.0-36.0 [facility] ([place]) MCV (RBC) [Entitic vol] 89.8 fL Normal 80.0-99.0 [facility] ([place]) Platelet 268 10 3/mcL Normal 150-450 [facility]) Platelet mean volume (Bld) [Entitic vol] 8.4 fL Normal 6.6-10.5 [facility] ([place]) RBC 3.49 10 6/mcL Low 4.10-5.30 [facility] ([place]) WBC 19.8 10 3/mcL High 4.5-10.8 [facility] ([place]) Erythrocyte distribution width (RBC) [Ratio] 14.0 % Normal 11.5-15.5 [facility] ([place]) Comment on above: Performed By: #### H CTRP, HGBRP, GLURP, CLRP, NARP, BGRP, KRP, CARP #### [place] [address] Hematocrit (Bld) [Volume fraction] 31.7 % Low 34.0-46.0 [facility] ([place]) Comment on above: Performed By: #### H CTRP, HGBRP, GLURP, CLRP, NARP, BGRP, KRP, CARP #### [place] [address] Hgb 10.3 G/dL Low 12.0-16.0 [facility] ([place]) Comment on above: Performed By: #### H CTRP, HGBRP, GLURP, CLRP, NARP, BGRP, KRP, CARP #### [place] [address] MCH (RBC) [Entitic mass] 29.6 pg Normal 27.0-33.0 [facility] ([place]) Comment on above: Performed By: #### H CTRP, HGBRP, GLURP, CLRP, NARP, BGRP, KRP, CARP #### [place] [phone] MCHC 32.7 G/dL Normal 32.0-36.0 [facility] ([place]) Comment on above: Performed By: #### H CTRP, HGBRP, GLURP, CLRP, NARP, BGRP, KRP, CARP #### [place] [phone] MCV (RBC) [Entitic vol] 90.7 fL Normal 80.0-99.0 [facility] ([place]) Comment on above: Performed By: #### H CTRP, HGBRP, GLURP, CLRP, NARP, BGRP, KRP, CARP #### [address] [address] Platelet 243 10 3/mcL Normal 150-450 [facility] ([place]) Comment on above: Performed By: #### H CTRP, HGBRP, GLURP, CLRP, NARP, BGRP, KRP, CARP #### [address] [address] Platelet mean volume (Bld) [Entitic vol] 8.6 fL Normal 6.6-10.5 [facility] ([place]) Comment on above: Performed By: #### H CTRP, HGBRP, GLURP, CLRP, NARP, BGRP, KRP, CARP #### [address] [address] RBC 3.49 10 6/mcL Low 4.10-5.30 [facility] ([place]) Comment on above: Performed By: #### H CTRP, HGBRP, GLURP, CLRP, NARP, BGRP, KRP, CARP #### [address] [address] WBC 20.3 10 3/mcL High 4.5-10.8 [facility] ([place]) Comment on above: Performed By: #### H CTRP, HGBRP, GLURP, CLRP, NARP, BGRP, KRP, CARP #### [address] [address] LABORATORYOrdered By: Nicci erickson on 11-26-2021 Barometric [...] Culture Urine No growth at [address] [facility] Work Phone: UAon 11-26-2021 Color (U) Yellow Normal [facility] ([place]) Comment on above: Performed By: #### H CTRP, HGBRP, GLURP, CLRP, NARP, BGRP, KRP, CARP #### [address] [address] Glucose (U) [Mass/Vol] 100 mg/dL Abnormal Negative [facility] ([place]) Comment on above: Performed By: #### H CTRP, HGBRP, GLURP, CLRP, NARP, BGRP, KRP, CARP #### [address] [address] Ketones Ql (U) 15 mg/dL Abnormal Neg-Trace [facility] ([place]) Comment on above: Performed By: #### H CTRP, HGBRP, GLURP, CLRP, NARP, BGRP, KRP, CARP #### [address] [address] UA Appear Clear Normal Clear [facility] ([place]) Comment on above: Performed By: #### H CTRP, HGBRP, GLURP, CLRP, NARP, BGRP, KRP, CARP #### [address] [address] UA Blood Negative Normal Neg-Trace [facility] ([place]) Comment on above: Performed By: #### H CTRP, HGBRP, GLURP, CLRP, NARP, BGRP, KRP, CARP #### [address] [address] UA Leuk Est Negative Normal Negative [facility] ([place]) Comment on above: Performed By: #### H CTRP, HGBRP, GLURP, CLRP, NARP, BGRP, KRP, CARP #### [address] [address] UA Nitrite Negative Normal Negative [facility] ([place]) Comment on above: Performed By: #### H CTRP, HGBRP, GLURP, CLRP, NARP, BGRP, KRP, CARP #### [address] [address] UA pH 5.0 Normal 5.0 - 8.0 [facility] ([place]) Comment on above: Performed By: #### H CTRP, HGBRP, GLURP, CLRP, NARP, BGRP, KRP, CARP #### [address] [address] UA Protein Negative Normal Negative [facility] ([place]) Comment on above: Performed By: #### H CTRP, HGBRP, GLURP, CLRP, NARP, BGRP, KRP, CARP #### [address] [address] UA Spec Grav 1.015 Normal 1.006-1.029 [facility] ([place]) Comment on above: Performed By: #### H CTRP, HGBRP, GLURP, CLRP, NARP, BGRP, KRP, CARP #### [address] [address] UA Specimen Type Catheter Normal [facility] ([place]) Comment on above: Performed By: #### H CTRP, HGBRP, GLURP, CLRP, NARP, BGRP, KRP, CARP #### [address] [address] UA Urobilinogen 0.2 E.U./dL Normal 0.2-1.0 [facility] ([place]) Comment on above: Performed By: #### H CTRP, HGBRP, GLURP, CLRP, NARP, BGRP, KRP, CARP #### [address] [address] Urobilinogen (U) [Mass/Vol] Negative Normal Neg-Trace [facility] ([place]) Comment on above: Performed By: #### H CTRP, HGBRP, GLURP, CLRP, NARP, BGRP, KRP, CARP #### [address] [address] XR CHEST 1 VIEWon 11-26-2021 XR CHEST [...] 11/26/2021 9:26:00 PM Ordering Provider: AL Mercado [facility] ([place]) XR CHEST 1 VIEW ORIGINAL EXAMINATION: ONE [...] 11/26/2021 6:50:40 AM Ordering Provider: NAT Mercado [facility] ([place]) .Auto Diffon 11-25-2021 Basophil, Absolute 0.0 10 3/mcL Normal 0.0-0.3 [facility] ([place]) Comment on above: Performed By: #### H CTRP, HGBRP, GLURP, CLRP, NARP, BGRP, KRP, CARP #### [address] [address] Basophils/100 WBC (Bld) 0.2 % Normal 0.0-2.5 [facility] ([place] Comment on above: Performed By: #### H CTRP, HGBRP, GLURP, CLRP, NARP, BGRP, KRP, CARP #### [address] [address] Eosinophil, Absolute 0.0 10 3/mcL Normal 0.0-0.7 [facility] ([place] Comment on above: Performed By: #### H CTRP, HGBRP, GLURP, CLRP, NARP, BGRP, KRP, CARP #### [address] [address] Eosinophils/100 WBC (Bld) 0.2 % Normal 0.0-6.0 [facility] ([place] Comment on above: Performed By: #### H CTRP, HGBRP, GLURP, CLRP, NARP, BGRP, KRP, CARP #### [address] [address] Lymphocyte, Absolute 2.0 10 3/mcL Normal 0.9-4.3 [facility] ([place] Comment on above: Performed By: #### H CTRP, HGBRP, GLURP, CLRP, NARP, BGRP, KRP, CARP #### [address] [address] Lymphocytes/100 WBC (Bld) 10.7 % Low 20.0-40.0 [facility] ([place] Comment on above: Performed By: #### H CTRP, HGBRP, GLURP, CLRP, NARP, BGRP, KRP, CARP #### [address] [address] Monocyte, Absolute 1.7 10 3/mcL High 0.1-1.4 [facility] ([place] Comment on above: Performed By: #### H CTRP, HGBRP, GLURP, CLRP, NARP, BGRP, KRP, CARP #### [address] [address] Monocytes/100 WBC (Bld) 9.3 % Normal 2.0-13.0 [facility] ([place] Comment on above: Performed By: #### H CTRP, HGBRP, GLURP, CLRP, NARP, BGRP, KRP, CARP #### [address] [address] Neutrophils/100 WBC (Bld) 79.6 % High 50.0-75.0 [facility] ([place] Comment on above: Performed By: #### H CTRP, HGBRP, GLURP, CLRP, NARP, BGRP, KRP, CARP #### [address] [address] .GFRon 11-25-2021 GFR Non- >60 Normal [facility] ([place]) Comment on above: Result Comment: GFR Population [...] CLRP, NARP, BGRP, KRP, CARP #### [address] [address] GFR >60 Normal [facility] ([place]) Comment on above: Result Comment: GFR Population [...] CLRP, NARP, BGRP, KRP, CARP #### [address] [address] .NEUABSon 11-25-2021 Neutrophil, Absolute 14.6 10 3/mcL High 2.3-8.1 [facility] ([place]) Comment on above: Performed By: #### H CTRP, HGBRP, GLURP, CLRP, NARP, BGRP, KRP, CARP #### [address] 11-25-2021 Barometric Pressure 712 mmHg Normal [facility] ([place]) Comment on above: Performed By: #### H CTRP, HGBRP, GLURP, CLRP, NARP, BGRP, KRP, CARP #### [address] [address] Base excess Calc (Bld) [Moles/Vol] 2.5 mmol/L Normal [facility] ([place]) Comment on above: Performed By: #### H CTRP, HGBRP, GLURP, CLRP, NARP, BGRP, KRP, CARP #### [address] [address] CO2 [Moles/Vol] 28.1 mmol/L Normal 22.0-30.0 [facility] ([place] Comment on above: Performed By: #### H CTRP, HGBRP, GLURP, CLRP, NARP, BGRP, KRP, CARP #### [address] [address] HCO3 (Bld) [Moles/Vol] 26.8 mmol/L Normal 21.0-29.0 [facility] ([place] Comment on above: Performed By: #### H CTRP, HGBRP, GLURP, CLRP, NARP, BGRP, KRP, CARP #### [address] [address] Oxygen (Bld) [Partial pressure] 72.8 mm[Hg] Low 74.0-108.0 [facility] ([place]) Comment on above: Performed By: #### H CTRP, HGBRP, GLURP, CLRP, NARP, BGRP, KRP, CARP #### [address] [address] Oxygen saturation in Blood 94.9 % Normal 92.0-96.0 [facility] ([place]) Comment on above: Performed By: #### H CTRP, HGBRP, GLURP, CLRP, NARP, BGRP, KRP, CARP #### [address] [address] pCO2 40.3 mmHg Normal 32.0-46.0 [facility] ([place]) Comment on above: Performed By: #### H CTRP, HGBRP, GLURP, CLRP, NARP, BGRP, KRP, CARP #### [place] [phone] pH (Bld) 7.441 [pH] Normal 7.380-7.460 [facility] ([place]) Comment on above: Performed By: #### H CTRP, HGBRP, GLURP, CLRP, NARP, BGRP, KRP, CARP #### [address] [address] BMPon 11-25-2021 BUN/Creatinine Ratio 19.7 ratio Normal 10.0-22.0 [facility] ([place]) Comment on above: Performed By: #### H CTRP, HGBRP, GLURP, CLRP, NARP, BGRP, KRP, CARP #### [place] [address] Calcium [Mass/Vol] 7.9 mg/dL Low 8.7-10.4 [facility] ([place]) Comment on above: Performed By: #### H CTRP, HGBRP, GLURP, CLRP, NARP, BGRP, KRP, CARP #### [place] [address] Chloride [Moles/Vol] 101 mmol/L Normal 98-110 [facility] ([place] Comment on above: Performed By: #### H CTRP, HGBRP, GLURP, CLRP, NARP, BGRP, KRP, CARP #### [place] [address] CO2 [Moles/Vol] 26 mmol/L Normal 22-32 [facility] ([place] Comment on above: Performed By: #### H CTRP, HGBRP, GLURP, CLRP, NARP, BGRP, KRP, CARP #### [place] [address] Creatinine [Mass/Vol] 0.66 mg/dL Normal 0.50-1.20 [facility] ([place] Comment on above: Performed By: #### H CTRP, HGBRP, GLURP, CLRP, NARP, BGRP, KRP, CARP #### [place] [address] Electrolyte Balance 10.0 mEq/L Normal 4.0-15.0 [facility] ([place] Comment on above: Performed By: #### H CTRP, HGBRP, GLURP, CLRP, NARP, BGRP, KRP, CARP #### [place] [address] Glucose [Mass/Vol] 89 mg/dL Normal 82-115 [facility] ([place]) Comment on above: Performed By: #### H CTRP, HGBRP, GLURP, CLRP, NARP, BGRP, KRP, CARP #### [address] [address] Potassium [Moles/Vol] 3.8 mmol/L Normal 3.5-5.0 [facility] ([place] Comment on above: Performed By: #### H CTRP, HGBRP, GLURP, CLRP, NARP, BGRP, KRP, CARP #### [place] [address] Sodium [Moles/Vol] 137 mmol/L Normal 136-145 [facility] ([place]) Comment on above: Performed By: #### H CTRP, HGBRP, GLURP, CLRP, NARP, BGRP, KRP, CARP #### [place] [address] Urea nitrogen [Mass/Vol] 13.0 mg/dL Normal 8.0-22.0 [facility] ([place] Comment on above: Performed By: #### H CTRP, HGBRP, GLURP, CLRP, NARP, BGRP, KRP, CARP #### [place] [address] CBCon 11-25-2021 Erythrocyte distribution width (RBC) [Ratio] 13.8 % Normal 11.5-15.5 [facility] ([place]) Comment on above: Performed By: #### H CTRP, HGBRP, GLURP, CLRP, NARP, BGRP, KRP, CARP #### [place] [address] Hematocrit (Bld) [Volume fraction] 31.4 % Low 34.0-46.0 [facility] ([place] Comment on above: Performed By: #### H CTRP, HGBRP, GLURP, CLRP, NARP, BGRP, KRP, CARP #### [place] [address] Hgb 10.3 G/dL Low 12.0-16.0 [facility] ([place]) Comment on above: Performed By: #### H CTRP, HGBRP, GLURP, CLRP, NARP, BGRP, KRP, CARP #### [place] [phone] MCH (RBC) [Entitic mass] 29.5 pg Normal 27.0-33.0 [facility] ([place]) Comment on above: Performed By: #### H CTRP, HGBRP, GLURP, CLRP, NARP, BGRP, KRP, CARP #### [place] [address] MCHC 32.8 G/dL Normal 32.0-36.0 [facility] ([place] Comment on above: Performed By: #### H CTRP, HGBRP, GLURP, CLRP, NARP, BGRP, KRP, CARP #### [place] [address] MCV (RBC) [Entitic vol] 89.8 fL Normal 80.0-99.0 [facility] ([place]) Comment on above: Performed By: #### H CTRP, HGBRP, GLURP, CLRP, NARP, BGRP, KRP, CARP #### [place] [address] Platelet 205 10 3/mcL Normal 150-450 [facility] ([place]) Comment on above: Performed By: #### H CTRP, HGBRP, GLURP, CLRP, NARP, BGRP, KRP, CARP #### [place] [address] Platelet mean volume (Bld) [Entitic vol] 8.9 fL Normal 6.6-10.5 [facility] ([place] Comment on above: Performed By: #### H CTRP, HGBRP, GLURP, CLRP, NARP, BGRP, KRP, CARP #### [place] [address] RBC 3.49 10 6/mcL Low 4.10-5.30 [facility] ([place]) Comment on above: Performed By: #### H CTRP, HGBRP, GLURP, CLRP, NARP, BGRP, KRP, CARP #### [place] [id number] WBC 18.4 10 3/mcL High 4.5-10.8 [facility] ([place] Comment on above: Performed By: #### H CTRP, HGBRP, GLURP, CLRP, NARP, BGRP, KRP, CARP #### [address] [address] [place] 11-25-2021 Potassium [Moles/Vol] 4.3 mmol/L Normal 3.5-5.0 [facility] ([place]) Comment on above: Performed By: #### K #### [address] [address] LABORATORYOrdered By: Alma Rosa Cabrera on 11-25-2021 [...] 11-25-2021 Cholesterol [Mass/Vol] 85 mg/dL Normal 50-199 [facility] ([place]) Comment on above: Result Comment: Chol esterol Reference Interval: Less than 200 Desirable 200-239 Borderline high risk 240 and above High risk Performed By: #### H CTRP, HGBRP, GLURP, CLRP, NARP, BGRP, KRP, CARP #### [address] [address] Cholesterol in HDL [Mass/Vol] 34 mg/dL Low 40-59 [facility] ([place]) Comment on above: Performed By: #### H CTRP, HGBRP, GLURP, CLRP, NARP, BGRP, KRP, CARP #### [address] [address] Cholesterol in LDL [Mass/Vol] 37 mg/dL Normal 0-129 [facility] ([place]) Comment on above: Performed By: #### H CTRP, HGBRP, GLURP, CLRP, NARP, BGRP, KRP, CARP #### [address] [address] Triglyceride [Mass/Vol] 72 mg/dL Normal 3-149 [facility] ([place]) Comment on above: Performed By: #### H CTRP, HGBRP, GLURP, CLRP, NARP, BGRP, KRP, CARP #### [facility] [address] [place] [id number] XR CHEST 1 VIEWon 11-25-2021 XR CHEST [...] NAT Mercado [facility] ([place]) XR CHEST 1 VIEW ORIGINAL EXAMINATION: ONE [...] POLLY Mercado [facility] ([place]) .Auto Diffon 11-24-2021 Basophil, Absolute 0.0 10 3/mcL Normal 0.0-0.3 [facility] ([place]) Comment on above: Performed By: #### H CTRP, HGBRP, GLURP, CLRP, NARP, BGRP, KRP, CARP #### [address] [address] Basophils/100 WBC (Bld) 0.2 % Normal 0.0-2.5 [facility] ([place]) Comment on above: Performed By: #### H CTRP, HGBRP, GLURP, CLRP, NARP, BGRP, KRP, CARP #### [address] [address] Eosinophil, Absolute 0.0 10 3/mcL Normal 0.0-0.7 [facility] ([place]) Comment on above: Performed By: #### H CTRP, HGBRP, GLURP, CLRP, NARP, BGRP, KRP, CARP #### [address] [address] Eosinophils/100 WBC (Bld) 0.0 % Normal 0.0-6.0 [facility] [place] ([place] Comment on above: Performed By: #### H CTRP, HGBRP, GLURP, CLRP, NARP, BGRP, KRP, CARP #### [address] [address] Lymphocyte, Absolute 1.3 10 3/mcL Normal 0.9-4.3 [facility] ([place] Comment on above: Performed By: #### H CTRP, HGBRP, GLURP, CLRP, NARP, BGRP, KRP, CARP #### [address] [address] Lymphocytes/100 WBC (Bld) 8.8 % Low 20.0-40.0 [facility] [place] ([place]) Comment on above: Performed By: #### H CTRP, HGBRP, GLURP, CLRP, NARP, BGRP, KRP, CARP #### [address] [address] Monocyte, Absolute 1.0 10 3/mcL Normal 0.1-1.4 [facility] ([place] Comment on above: Performed By: #### H CTRP, HGBRP, GLURP, CLRP, NARP, BGRP, KRP, CARP #### [address] [address] Monocytes/100 WBC (Bld) 6.9 % Normal 2.0-13.0 [facility] ([place] Comment on above: Performed By: #### H CTRP, HGBRP, GLURP, CLRP, NARP, BGRP, KRP, CARP #### [address] [address] Neutrophils/100 WBC (Bld) 84.1 % High 50.0-75.0 [facility] [place] ([place] Comment on above: Performed By: #### H CTRP, HGBRP, GLURP, CLRP, NARP, BGRP, KRP, CARP #### [address] [address] .GFRon 11-24-2021 GFR Non- >60 Normal [facility] [place] ([place]) Comment on above: Result Comment: GFR Population [...] GLURP, CLRP, NARP, BGRP, KRP, CARP #### [place] [address] GFR >60 Normal [facility] ([place] Comment on above: Result Comment: GFR Population [...] GLURP, CLRP, NARP, BGRP, KRP, CARP #### [place] [address] .NEUABSon 11-24-2021 Neutrophil, Absolute 12.4 10 3/mcL High 2.3-8.1 [facility] ([place] Comment on above: Performed By: #### H CTRP, HGBRP, GLURP, CLRP, NARP, BGRP, KRP, CARP #### [address] [address] BGon 11-24-2021 Barometric Pressure 707 mmHg Normal [facility] ([place] Comment on above: Performed By: #### K #### [address] [address] Base excess Calc (Bld) [Moles/Vol] 1.1 mmol/L Normal [facility] [place] ([place]) Comment on above: Performed By: #### K #### [address] [address] CO2 [Moles/Vol] 27.3 mmol/L Normal 22.0-30.0 [facility] [place] ([place] Comment on above: Performed By: #### K #### [address] [address] HCO3 (Bld) [Moles/Vol] 26.0 mmol/L Normal 21.0-29.0 [facility] ([place] Comment on above: Performed By: #### K #### [address] [address] Oxygen (Bld) [Partial pressure] 74.2 mm[Hg] Normal 74.0-108.0 [facility] [place] ([place] Comment on above: Performed By: #### K #### [address] [address] Oxygen saturation in Blood 95.6 % Normal 92.0-96.0 [facility] [place] ([place] Comment on above: Performed By: #### K #### [address] [address] pCO2 42.2 mmHg Normal 32.0-46.0 [facility] [place] ([place] Comment on above: Performed By: #### K #### [address] [address] pH (Bld) 7.407 [pH] Normal 7.380-7.460 [facility] [place] ([place] Comment on above: Performed By: #### K #### [address] [address] Barometric Pressure 706 mmHg Normal [facility] ([place] Comment on above: Performed By: #### H CTRP, HGBRP, GLURP, CLRP, NARP, BGRP, KRP, CARP #### [address] [address] Base excess Calc (Bld) [Moles/Vol] -2.2000 mmol/L Normal [facility] [place] ([place] Comment on above: Performed By: #### H CTRP, HGBRP, GLURP, CLRP, NARP, BGRP, KRP, CARP #### [address] [address] CO2 [Moles/Vol] 26.0 mmol/L Normal 22.0-30.0 [facility] [place] ([place] Comment on above: Performed By: #### H CTRP, HGBRP, GLURP, CLRP, NARP, BGRP, KRP, CARP #### [place] [phone] HCO3 (Bld) [Moles/Vol] 24.4 mmol/L Normal 21.0-29.0 [facility] [place] Comment on above: Performed By: #### H CTRP, HGBRP, GLURP, CLRP, NARP, BGRP, KRP, CARP #### [place] [phone] Oxygen (Bld) [Partial pressure] 86.6 mm[Hg] Normal 74.0-108.0 [facility] [place] ([place] Comment on above: Performed By: #### H CTRP, HGBRP, GLURP, CLRP, NARP, BGRP, KRP, CARP #### [place] [phone] Oxygen saturation in Blood 96.2 % High 92.0-96.0 [facility] [place] Comment on above: Performed By: #### H CTRP, HGBRP, GLURP, CLRP, NARP, BGRP, KRP, CARP #### [address] [address] pCO2 50.9 mmHg High 32.0-46.0 [facility] [place] ([place] Comment on above: Performed By: #### H CTRP, HGBRP, GLURP, CLRP, NARP, BGRP, KRP, CARP #### [address] [address] pH (Bld) 7.299 [pH] Low 7.380-7.460 [facility] [place] ([place] Comment on above: Performed By: #### H CTRP, HGBRP, GLURP, CLRP, NARP, BGRP, KRP, CARP #### [address] [address] Barometric Pressure 709 mmHg Normal [facility] ([place] Comment on above: Performed By: #### H CTRP, HGBRP, GLURP, CLRP, NARP, BGRP, KRP, CARP #### [address] [address] Base excess Calc (Bld) [Moles/Vol] -0.8000 mmol/L Normal [facility] [place] ([place] Comment on above: Performed By: #### H CTRP, HGBRP, GLURP, CLRP, NARP, BGRP, KRP, CARP #### [address] [address] CO2 [Moles/Vol] 27.3 mmol/L Normal 22.0-30.0 [facility] [place] ([place] Comment on above: Performed By: #### H CTRP, HGBRP, GLURP, CLRP, NARP, BGRP, KRP, CARP #### [place] [phone] HCO3 (Bld) [Moles/Vol] 25.7 mmol/L Normal 21.0-29.0 [facility] ([place] Comment on above: Performed By: #### H CTRP, HGBRP, GLURP, CLRP, NARP, BGRP, KRP, CARP #### [address] [address] Oxygen (Bld) [Partial pressure] 130.7 mm[Hg] High 74.0-108.0 [facility] [place] ([place] Comment on above: Performed By: #### H CTRP, HGBRP, GLURP, CLRP, NARP, BGRP, KRP, CARP #### [place] [phone] Oxygen saturation in Blood 98.7 % High 92.0-96.0 [facility] [place] Comment on above: Performed By: #### H CTRP, HGBRP, GLURP, CLRP, NARP, BGRP, KRP, CARP #### [address] [address] pCO2 50.9 mmHg High 32.0-46.0 [facility] [place] ([place] Comment on above: Performed By: #### H CTRP, HGBRP, GLURP, CLRP, NARP, BGRP, KRP, CARP #### [address] [address] pH (Bld) 7.321 [pH] Low 7.380-7.460 [facility] [place] ([place] Comment on above: Performed By: #### H CTRP, HGBRP, GLURP, CLRP, NARP, BGRP, KRP, CARP #### [address] [address] Barometric Pressure 735 mmHg Normal [facility] ([place] Comment on above: Performed By: #### H CTRP, HGBRP, GLURP, CLRP, NARP, BGRP, KRP, CARP #### [address] [address] Base excess Calc (Bld) [Moles/Vol] -2.0000 mmol/L Normal [facility] [place] ([place] Comment on above: Performed By: #### H CTRP, HGBRP, GLURP, CLRP, NARP, BGRP, KRP, CARP #### [address] [address] CO2 [Moles/Vol] 27.5 mmol/L Normal 22.0-30.0 [facility] [place] ([place] Comment on above: Performed By: #### H CTRP, HGBRP, GLURP, CLRP, NARP, BGRP, KRP, CARP #### [address] [address] HCO3 (Bld) [Moles/Vol] 25.7 mmol/L Normal 21.0-29.0 [facility] ([place] Comment on above: Performed By: #### H CTRP, HGBRP, GLURP, CLRP, NARP, BGRP, KRP, CARP #### [address] [address] Oxygen (Bld) [Partial pressure] 101.8 mm[Hg] Normal 74.0-108.0 [facility] [place] ([place] Comment on above: Performed By: #### H CTRP, HGBRP, GLURP, CLRP, NARP, BGRP, KRP, CARP #### [place] [phone] Oxygen saturation in Blood 96.9 % High 92.0-96.0 [facility] [place] ([place] Comment on above: Performed By: #### H CTRP, HGBRP, GLURP, CLRP, NARP, BGRP, KRP, CARP #### [address] [address] pCO2 55.8 mmHg High 32.0-46.0 [facility] [place] ([place] Comment on above: Performed By: #### H CTRP, HGBRP, GLURP, CLRP, NARP, BGRP, KRP, CARP #### [address] [address] pH (Bld) 7.282 [pH] Low 7.380-7.460 [facility] [place] ([place] Comment on above: Performed By: #### H CTRP, HGBRP, GLURP, CLRP, NARP, BGRP, KRP, CARP #### [place] [phone] Barometric Pressure 705 mmHg Normal [facility] ([place] Comment on above: Performed By: #### H CTRP, HGBRP, GLURP, CLRP, NARP, BGRP, KRP, CARP #### [address] [address] Base excess Calc (Bld) [Moles/Vol] -1.8000 mmol/L Normal [facility] [place] ([place] Comment on above: Performed By: #### H CTRP, HGBRP, GLURP, CLRP, NARP, BGRP, KRP, CARP #### [address] [address] CO2 [Moles/Vol] 27.9 mmol/L Normal 22.0-30.0 [facility] [place] ([place] Comment on above: Performed By: #### H CTRP, HGBRP, GLURP, CLRP, NARP, BGRP, KRP, CARP #### [address] [address] HCO3 (Bld) [Moles/Vol] 26.1 mmol/L Normal 21.0-29.0 [facility] ([place] Comment on above: Performed By: #### H CTRP, HGBRP, GLURP, CLRP, NARP, BGRP, KRP, CARP #### [address] [address] Oxygen (Bld) [Partial pressure] 113.5 mm[Hg] High 74.0-108.0 [facility] [place] ([place] Comment on above: Performed By: #### H CTRP, HGBRP, GLURP, CLRP, NARP, BGRP, KRP, CARP #### [address] [address] Oxygen saturation in Blood 97.9 % High 92.0-96.0 [facility] [place] ([place] Comment on above: Performed By: #### H CTRP, HGBRP, GLURP, CLRP, NARP, BGRP, KRP, CARP #### [address] [address] pCO2 60.4 mmHg High 32.0-46.0 [facility] [place] ([place] Comment on above: Performed By: #### H CTRP, HGBRP, GLURP, CLRP, NARP, BGRP, KRP, CARP #### [address] [address] pH (Bld) 7.253 [pH] Low 7.380-7.460 [facility] [place] ([place] Comment on above: Performed By: #### H CTRP, HGBRP, GLURP, CLRP, NARP, BGRP, KRP, CARP #### [place] [address] CBCon 11-24-2021 Erythrocyte distribution width (RBC) [Ratio] 14.1 % Normal 11.5-15.5 [facility] [place] ([place] Comment on above: Performed By: #### H CTRP, HGBRP, GLURP, CLRP, NARP, BGRP, KRP, CARP #### [place] [address] Hematocrit (Bld) [Volume fraction] 29.2 % Low 34.0-46.0 [facility] [place] ([place] Comment on above: Performed By: #### H CTRP, HGBRP, GLURP, CLRP, NARP, BGRP, KRP, CARP #### [place] [address] Hgb 9.6 G/dL Low 12.0-16.0 [facility] [place] ([place] Comment on above: Performed By: #### H CTRP, HGBRP, GLURP, CLRP, NARP, BGRP, KRP, CARP #### [place] [address] MCH (RBC) [Entitic mass] 29.6 pg Normal 27.0-33.0 [facility] [place] ([place] Comment on above: Performed By: #### H CTRP, HGBRP, GLURP, CLRP, NARP, BGRP, KRP, CARP #### [place] [address] MCHC 32.7 G/dL Normal 32.0-36.0 [facility] [place] ([place] Comment on above: Performed By: #### H CTRP, HGBRP, GLURP, CLRP, NARP, BGRP, KRP, CARP #### [place] [phone] MCV (RBC) [Entitic vol] 90.4 fL Normal 80.0-99.0 [facility] ([place] Comment on above: Performed By: #### H CTRP, HGBRP, GLURP, CLRP, NARP, BGRP, KRP, CARP #### [place] [phone] Platelet 186 10 3/mcL Normal 150-450 [facility] [place] ([place] Comment on above: Performed By: #### H CTRP, HGBRP, GLURP, CLRP, NARP, BGRP, KRP, CARP #### [address] [address] Platelet mean volume (Bld) [Entitic vol] 8.5 fL Normal 6.6-10.5 [facility] [place] ([place] Comment on above: Performed By: #### H CTRP, HGBRP, GLURP, CLRP, NARP, BGRP, KRP, CARP #### [place] [phone] RBC 3.23 10 6/mcL Low 4.10-5.30 [facility] [place] ([place] Comment on above: Performed By: #### H CTRP, HGBRP, GLURP, CLRP, NARP, BGRP, KRP, CARP #### [address] [address] WBC 14.8 10 3/mcL High 4.5-10.8 [facility] [place] ([place] Comment on above: Performed By: #### H CTRP, HGBRP, GLURP, CLRP, NARP, BGRP, KRP, CARP #### [address] [address] CMPon 11-24-2021 Albumin Level 3.7 G/dL Normal 3.2-4.8 [facility] [place] ([place] Comment on above: Performed By: #### H CTRP, HGBRP, GLURP, CLRP, NARP, BGRP, KRP, CARP #### [place] [address] Albumin/Globulin [Mass ratio] 1.9 {ratio} High 0.9-1.6 [facility] [place] ([place] Comment on above: Performed By: #### H CTRP, HGBRP, GLURP, CLRP, NARP, BGRP, KRP, CARP #### [place] [address] ALP [Catalytic activity/Vol] 41 U/L Normal 38-126 [facility] ([place]) Comment on above: Performed By: #### H CTRP, HGBRP, GLURP, CLRP, NARP, BGRP, KRP, CARP #### [address] [address] ALT [Catalytic activity/Vol] 33 U/L Normal 10-49 [facility] [place] ([place] Comment on above: Performed By: #### H CTRP, HGBRP, GLURP, CLRP, NARP, BGRP, KRP, CARP #### [address] [address] AST [Catalytic activity/Vol] 49 U/L High 8-34 [facility] [place] ([place] Comment on above: Performed By: #### H CTRP, HGBRP, GLURP, CLRP, NARP, BGRP, KRP, CARP #### [address] [address] Bili Total 0.80 mg/dL Normal 0.20-1.20 [facility] [place] ([place] Comment on above: Result Comment: Use of this assay is not recommended for patients undergoing treatment with eltrombopag due to the potential for falsely elevated results. Performed By: #### H CTRP, HGBRP, GLURP, CLRP, NARP, BGRP, KRP, CARP #### [address] [address] BUN/Creatinine Ratio 22.4 ratio High 10.0-22.0 [facility] ([place] Comment on above: Performed By: #### H CTRP, HGBRP, GLURP, CLRP, NARP, BGRP, KRP, CARP #### [address] [address] Calcium [Mass/Vol] 7.5 mg/dL Low 8.7-10.4 [facility] ([place]) Comment on above: Performed By: #### H CTRP, HGBRP, GLURP, CLRP, NARP, BGRP, KRP, CARP #### [address] [address] Chloride [Moles/Vol] 106 mmol/L Normal 98-110 [facility] ([place] Comment on above: Performed By: #### H CTRP, HGBRP, GLURP, CLRP, NARP, BGRP, KRP, CARP #### [address] [address] CO2 [Moles/Vol] 26 mmol/L Normal 22-32 [facility] [place] ([place] Comment on above: Performed By: #### H CTRP, HGBRP, GLURP, CLRP, NARP, BGRP, KRP, CARP #### [address] [address] Creatinine [Mass/Vol] 0.67 mg/dL Normal 0.50-1.20 [facility] ([place]) Comment on above: Performed By: #### H CTRP, HGBRP, GLURP, CLRP, NARP, BGRP, KRP, CARP #### [address] [address] Electrolyte Balance 5.0 mEq/L Normal 4.0-15.0 [facility] ([place] Comment on above: Performed By: #### H CTRP, HGBRP, GLURP, CLRP, NARP, BGRP, KRP, CARP #### [address] [address] Globulin 1.9 G/dL Normal 1.5-3.8 [facility] [place] ([place] Comment on above: Performed By: #### H CTRP, HGBRP, GLURP, CLRP, NARP, BGRP, KRP, CARP #### [address] [address] Glucose [Mass/Vol] 141 mg/dL High 82-115 [facility] ([place]) Comment on above: Performed By: #### H CTRP, HGBRP, GLURP, CLRP, NARP, BGRP, KRP, CARP #### [address] [address] Potassium [Moles/Vol] 4.2 mmol/L Normal 3.5-5.0 [facility] ([place] Comment on above: Performed By: #### H CTRP, HGBRP, GLURP, CLRP, NARP, BGRP, KRP, CARP #### [place] [address] Sodium [Moles/Vol] 137 mmol/L Normal 136-145 [facility] ([place]) Comment on above: Performed By: #### H CTRP, HGBRP, GLURP, CLRP, NARP, BGRP, KRP, CARP #### [place] [address] Total Protein 5.6 G/dL Low 5.7-8.2 [facility] [place] ([place] Comment on above: Result Comment: No te - New Reference Range in effect 19 Performed By: #### H CTRP, HGBRP, GLURP, CLRP, NARP, BGRP, KRP, CARP #### [place] [address] Urea nitrogen [Mass/Vol] 15.0 mg/dL Normal 8.0-22.0 [facility] [place] ([place] Comment on above: Performed By: #### H CTRP, HGBRP, GLURP, CLRP, NARP, BGRP, KRP, CARP #### [place] [address] [place] 11-24-2021 Potassium [Moles/Vol] 4.0 mmol/L Normal 3.5-5.0 [facility] ([place] Comment on above: Performed By: #### H CTRP, HGBRP, GLURP, CLRP, NARP, BGRP, KRP, CARP #### [place] [address] Potassium [Moles/Vol] 4.7 mmol/L Normal 3.5-5.0 [facility] ([place] Comment on above: Performed By: #### H CTRP, HGBRP, GLURP, CLRP, NARP, BGRP, KRP, CARP #### [place] [address] LABORATORYOrdered By: Oswaldo Vásquez on 11-24-2021 Blood Glucose Interventions Administered agent to decrease blood sugar (11/24/21 11:28 AM) [facility] Work Phone: Blood Glucose Interventions Administered agent to decrease blood sugar (11/24/21 9:39 AM) [facility] Work Phone: Blood Glucose Interventions Administered agent to decrease blood sugar (11/24/21 7:27 AM) [facility] Work Phone: LABORATORYOrdered By: SYSTEM SYSTEM [...] Basophil, Absolute 0.1 10 3/mcL Normal 0.0-0.3 [facility] [place] Comment on above: Performed By: #### H CTRP, HGBRP, GLURP, CLRP, NARP, BGRP, KRP, CARP #### [address] [address] Basophils/100 WBC (Bld) 0.3 % Normal 0.0-2.5 [facility] ([place] Comment on above: Performed By: #### H CTRP, HGBRP, GLURP, CLRP, NARP, BGRP, KRP, CARP #### [address] [address] Eosinophil, Absolute 0.3 10 3/mcL Normal 0.0-0.7 [facility] ([place] Comment on above: Performed By: #### H CTRP, HGBRP, GLURP, CLRP, NARP, BGRP, KRP, CARP #### [address] [address] Eosinophils/100 WBC (Bld) 1.3 % Normal 0.0-6.0 [facility] [place] ([place] Comment on above: Performed By: #### H CTRP, HGBRP, GLURP, CLRP, NARP, BGRP, KRP, CARP #### [address] [address] Lymphocyte, Absolute 2.6 10 3/mcL Normal 0.9-4.3 [facility] ([place] Comment on above: Performed By: #### H CTRP, HGBRP, GLURP, CLRP, NARP, BGRP, KRP, CARP #### [address] [address] Lymphocytes/100 WBC (Bld) 11.4 % Low 20.0-40.0 [facility] [place] ([place] Comment on above: Performed By: #### H CTRP, HGBRP, GLURP, CLRP, NARP, BGRP, KRP, CARP #### [address] [address] Monocyte, Absolute 0.7 10 3/mcL Normal 0.1-1.4 [facility] [place] Comment on above: Performed By: #### H CTRP, HGBRP, GLURP, CLRP, NARP, BGRP, KRP, CARP #### [address] [address] Monocytes/100 WBC (Bld) 3.1 % Normal 2.0-13.0 [facility] [place] Comment on above: Performed By: #### H CTRP, HGBRP, GLURP, CLRP, NARP, BGRP, KRP, CARP #### [address] [address] Neutrophils/100 WBC (Bld) 83.9 % High 50.0-75.0 [facility] [place] Comment on above: Performed By: #### H CTRP, HGBRP, GLURP, CLRP, NARP, BGRP, KRP, CARP #### [address] [address] .GFRon 11-23-2021 GFR Non- >60 Normal [facility] [place] ([place] Comment on above: Result Comment: GFR Population [...] CLRP, NARP, BGRP, KRP, CARP #### [address] [address] GFR >60 Normal [facility] [place] Comment on above: Result Comment: GFR Population [...] CLRP, NARP, BGRP, KRP, CARP #### [address] [address] .NEUABSon 11-23-2021 Neutrophil, Absolute 18.9 10 3/mcL High 2.3-8.1 [facility] ([place] Comment on above: Performed By: #### H CTRP, HGBRP, GLURP, CLRP, NARP, BGRP, KRP, CARP #### [place] [phone] ABO/Rh (Gel)on 11-23-2021 ABO/Rh Interp Positive Invalid Interpretation Code [facility] [place] ([place] Comment on above: Performed By: #### H CTRP, HGBRP, GLURP, CLRP, NARP, BGRP, KRP, CARP #### [place] [phone] ABS (Gel)on 11-23-2021 ABSC Interp (Gel) Negative Normal [facility] [place] Comment on above: Performed By: #### H CTRP, HGBRP, GLURP, CLRP, NARP, BGRP, KRP, CARP #### [place] [id number] APTTon 11-23-2021 aPTT Coag (Bld) [Time] 32.5 s Normal 25.0-35.0 [facility] [place] Comment on above: Result Comment: For Heparin anticoagulation therapy, the recommended therapeutic range is: 54-77 seconds (APTT Correlation with Anti-Xa therapeutic range of 0.3-0.7 units/ml). PLEASE REFERENCE THE PHARMACY PROTOCOL FOR DOSING. Performed By: #### H CTRP, HGBRP, GLURP, CLRP, NARP, BGRP, KRP, CARP #### [place] [id number] Heparin dose (APTT) None Normal [facility] ([place] Comment on above: Performed By: #### H CTRP, HGBRP, GLURP, CLRP, NARP, BGRP, KRP, CARP #### [place] [id number] aPTT Coag (Bld) [Time] 25.6 s Normal 25.0-35.0 [facility] ([place] Comment on above: Result Comment: For Heparin anticoagulation therapy, the recommended therapeutic range is: 54-77 seconds (APTT Correlation with Anti-Xa therapeutic range of 0.3-0.7 units/ml). PLEASE REFERENCE THE PHARMACY PROTOCOL FOR DOSING. Performed By: #### H CTRP, HGBRP, GLURP, CLRP, NARP, BGRP, KRP, CARP #### [place] [id number] Heparin dose (APTT) Unknown Normal [facility] ([place] Comment on above: Performed By: #### H CTRP, HGBRP, GLURP, CLRP, NARP, BGRP, KRP, CARP #### [place] [id number] BGon 11-23-2021 Barometric Pressure 735 mmHg Normal [facility] ([place] Comment on above: Performed By: #### K #### [place] [phone] Base excess Calc (Bld) [Moles/Vol] -1.8000 mmol/L Normal [facility] [place] ([place] Comment on above: Performed By: #### K #### [place] [phone] CO2 [Moles/Vol] 28.0 mmol/L Normal 22.0-30.0 [facility] [place] ([place] Comment on above: Performed By: #### K #### [place] [phone] HCO3 (Bld) [Moles/Vol] 26.2 mmol/L Normal 21.0-29.0 [facility] ([place] Comment on above: Performed By: #### K #### [place] [phone] Oxygen (Bld) [Partial pressure] 108.5 mm[Hg] High 74.0-108.0 [facility] [place] ([place] Comment on above: Performed By: #### K #### [place] [phone] Oxygen saturation in Blood 97.3 % High 92.0-96.0 [facility] [place] ([place] Comment on above: Performed By: #### K #### [address] [address] pCO2 57.8 mmHg High 32.0-46.0 [facility] [place] ([place] Comment on above: Performed By: #### K #### [address] [address] pH (Bld) 7.274 [pH] Low 7.380-7.460 [facility] [place] ([place] Comment on above: Performed By: #### K #### [place] [phone] Barometric Pressure 708 mmHg Normal [facility] ([place] Comment on above: Performed By: #### H CTRP, HGBRP, GLURP, CLRP, NARP, BGRP, KRP, CARP #### [place] [phone] Base excess Calc (Bld) [Moles/Vol] -2.2000 mmol/L Normal [facility] [place] ([place] Comment on above: Performed By: #### H CTRP, HGBRP, GLURP, CLRP, NARP, BGRP, KRP, CARP #### [address] [address] CO2 [Moles/Vol] 27.8 mmol/L Normal 22.0-30.0 [facility] [place] Comment on above: Performed By: #### H CTRP, HGBRP, GLURP, CLRP, NARP, BGRP, KRP, CARP #### [address] [address] HCO3 (Bld) [Moles/Vol] 25.9 mmol/L Normal 21.0-29.0 [facility] ([place] Comment on above: Performed By: #### H CTRP, HGBRP, GLURP, CLRP, NARP, BGRP, KRP, CARP #### [place] [phone] Oxygen (Bld) [Partial pressure] 97.0 mm[Hg] Normal 74.0-108.0 [facility] [place] ([place] Comment on above: Performed By: #### H CTRP, HGBRP, GLURP, CLRP, NARP, BGRP, KRP, CARP #### [address] [address] Oxygen saturation in Blood 96.1 % High 92.0-96.0 [facility] [place] ([place] Comment on above: Performed By: #### H CTRP, HGBRP, GLURP, CLRP, NARP, BGRP, KRP, CARP #### [address] [address] pCO2 61.5 mmHg High 32.0-46.0 [facility] [place] ([place] Comment on above: Performed By: #### H CTRP, HGBRP, GLURP, CLRP, NARP, BGRP, KRP, CARP #### [address] [address] pH (Bld) 7.242 [pH] Low 7.380-7.460 [facility] ([place]) Comment on above: Performed By: #### H CTRP, HGBRP, GLURP, CLRP, NARP, BGRP, KRP, CARP #### [address] [address] Barometric Pressure 708 mmHg Normal [facility] ([place]) Comment on above: Order Comment: CPAP Performed By: #### H CTRP, HGBRP, GLURP, CLRP, NARP, BGRP, KRP, CARP #### [address] [address] Base excess Calc (Bld) [Moles/Vol] -1.1000 mmol/L Normal [facility] ([place]) Comment on above: Order Comment: CPAP Performed By: #### H CTRP, HGBRP, GLURP, CLRP, NARP, BGRP, KRP, CARP #### [address] [address] CO2 [Moles/Vol] 26.0 mmol/L Normal 22.0-30.0 [facility] ([place]) Comment on above: Order Comment: CPAP Performed By: #### H CTRP, HGBRP, GLURP, CLRP, NARP, BGRP, KRP, CARP #### [address] [address] HCO3 (Bld) [Moles/Vol] 24.6 mmol/L Normal 21.0-29.0 [facility] ([place]) Comment on above: Order Comment: CPAP Performed By: #### H CTRP, HGBRP, GLURP, CLRP, NARP, BGRP, KRP, CARP #### [address] [address] [address] Oxygen (Bld) [Partial pressure] 127.1 mm[Hg] High 74.0-108.0 [facility] ([place]) Comment on above: Order Comment: CPAP Performed By: #### H CTRP, HGBRP, GLURP, CLRP, NARP, BGRP, KRP, CARP #### [address] [address] Oxygen saturation in Blood 98.4 % High 92.0-96.0 [facility] ([place]) Comment on above: Order Comment: CPAP Performed By: #### H CTRP, HGBRP, GLURP, CLRP, NARP, BGRP, KRP, CARP #### [address] [address] pCO2 45.6 mmHg Normal 32.0-46.0 [facility] ([place]) Comment on above: Order Comment: CPAP Performed By: #### H CTRP, HGBRP, GLURP, CLRP, NARP, BGRP, KRP, CARP #### [address] [address] pH (Bld) 7.350 [pH] Low 7.380-7.460 [facility] ([place]) Comment on above: Order Comment: CPAP Performed By: #### H CTRP, HGBRP, GLURP, CLRP, NARP, BGRP, KRP, CARP #### [address] [address] Barometric Pressure 709 mmHg Normal [facility] ([place]) Comment on above: Performed By: #### H CTRP, HGBRP, GLURP, CLRP, NARP, BGRP, KRP, CARP #### [address] [address] Base excess Calc (Bld) [Moles/Vol] -1.4000 mmol/L Normal [facility] ([place]) Comment on above: Performed By: #### H CTRP, HGBRP, GLURP, CLRP, NARP, BGRP, KRP, CARP #### [place] [id number] HCO3 (Bld) [Moles/Vol] 24.3 mmol/L Normal 21.0-29.0 [facility] ([place]) Comment on above: Performed By: #### H CTRP, HGBRP, GLURP, CLRP, NARP, BGRP, KRP, CARP #### [place] [phone] Oxygen (Bld) [Partial pressure] 118.0 mm[Hg] High 74.0-108.0 [facility] ([place]) Comment on above: Performed By: #### H CTRP, HGBRP, GLURP, CLRP, NARP, BGRP, KRP, CARP #### [address] [address] Oxygen saturation in Blood 98.2 % High 92.0-96.0 [facility] ([place]) Comment on above: Performed By: #### H CTRP, HGBRP, GLURP, CLRP, NARP, BGRP, KRP, CARP #### [address] [address] pCO2 44.8 mmHg Normal 32.0-46.0 [facility] ([place]) Comment on above: Performed By: #### H CTRP, HGBRP, GLURP, CLRP, NARP, BGRP, KRP, CARP #### [address] [address] pH (Bld) 7.352 [pH] Low 7.380-7.460 [facility] ([place]) Comment on above: Performed By: #### H CTRP, HGBRP, GLURP, CLRP, NARP, BGRP, KRP, CARP #### [address] [address] Barometric Pressure 706 mmHg Normal [facility] ([place]) Comment on above: Performed By: #### B G #### [address] [address] Base excess Calc (Bld) [Moles/Vol] -2.3000 mmol/L Normal [facility] ([place]) Comment on above: Performed By: #### B G #### [address] [address] CO2 [Moles/Vol] 24.6 mmol/L Normal 22.0-30.0 [facility] ([place]) Comment on above: Performed By: #### B G #### [address] [address] HCO3 (Bld) [Moles/Vol] 23.3 mmol/L Normal 21.0-29.0 [facility] ([place]) Comment on above: Performed By: #### B G #### [address] [address] Oxygen (Bld) [Partial pressure] 98.4 mm[Hg] Normal 74.0-108.0 [facility] ([place]) Comment on above: Performed By: #### B G #### [address] [address] Oxygen saturation in Blood 97.4 % High 92.0-96.0 [facility] ([place]) Comment on above: Performed By: #### B G #### [address] [address] pCO2 43.4 mmHg Normal 32.0-46.0 [facility] ([place]) Comment on above: Performed By: #### B G #### [address] [address] pH (Bld) 7.348 [pH] Low 7.380-7.460 [facility] ([place]) Comment on above: Performed By: #### B G #### [address] [address] BGOrdered By: SYSTEM SYSTEM on 11-23-2021 CO2 [Moles/Vol] 25.7 mmol/L Normal 22.0-30.0 [facility] Comment on above: Performed By: #### H CTRP, HGBRP, GLURP, CLRP, NARP, BGRP, KRP, CARP #### [place] [address] Performed By: #### K #### [place] [address] BGRPon 11-23-2021 Base Excess - POC -2.6 mmol/L Normal [facility] ([place]) Comment on above: Performed By: #### H CTRP, HGBRP, GLURP, CLRP, NARP, BGRP, KRP, CARP #### [place] [address] CO2 [Moles/Vol] 23.5 mmol/L Normal 22.0-30.0 [facility] ([place]) Comment on above: Performed By: #### H CTRP, HGBRP, GLURP, CLRP, NARP, BGRP, KRP, CARP #### [place] [address] HCO3 (Bld) [Moles/Vol] 22.3 mmol/L Normal 21.0-29.0 [facility] ([place] Comment on above: Performed By: #### H CTRP, HGBRP, GLURP, CLRP, NARP, BGRP, KRP, CARP #### [place] [address] Oxygen saturation in Blood 97.8 % High 92.0-96.0 [facility] ([place]) Comment on above: Performed By: #### H CTRP, HGBRP, GLURP, CLRP, NARP, BGRP, KRP, CARP #### [place] [address] PCO2 - POC 38.7 mmHg Normal 32.0-46.0 [facility] ([place]) Comment on above: Performed By: #### H CTRP, HGBRP, GLURP, CLRP, NARP, BGRP, KRP, CARP #### [place] [phone] pH (poct) - POC 7.378 Low 7.380-7.460 [facility] ([place]) Comment on above: Performed By: #### H CTRP, HGBRP, GLURP, CLRP, NARP, BGRP, KRP, CARP #### [place] [address] PO2 - POC 123.0 mmHg High 74.0-108.0 [facility] ([place]) Comment on above: Performed By: #### H CTRP, HGBRP, GLURP, CLRP, NARP, BGRP, KRP, CARP #### [place] [address] Base Excess - POC -3.2 mmol/L Normal [facility] ([place]) Comment on above: Performed By: #### H CTRP, HGBRP, GLURP, CLRP, NARP, BGRP, KRP, CARP #### [place] [address] CO2 [Moles/Vol] 22.8 mmol/L Normal 22.0-30.0 [facility] ([place]) Comment on above: Performed By: #### H CTRP, HGBRP, GLURP, CLRP, NARP, BGRP, KRP, CARP #### [place] [address] HCO3 (Bld) [Moles/Vol] 21.7 mmol/L Normal 21.0-29.0 [facility] ([place] Comment on above: Performed By: #### H CTRP, HGBRP, GLURP, CLRP, NARP, BGRP, KRP, CARP #### [place] [address] Oxygen saturation in Blood 99.2 % High 92.0-96.0 [facility] ([place]) Comment on above: Performed By: #### H CTRP, HGBRP, GLURP, CLRP, NARP, BGRP, KRP, CARP #### [place] [phone] PCO2 - POC 37.9 mmHg Normal 32.0-46.0 [facility] ([place]) Comment on above: Performed By: #### H CTRP, HGBRP, GLURP, CLRP, NARP, BGRP, KRP, CARP #### [place] [id number] pH (poct) - POC 7.375 Low 7.380-7.460 [facility] ([place]) Comment on above: Performed By: #### H CTRP, HGBRP, GLURP, CLRP, NARP, BGRP, KRP, CARP #### [place] [address] PO2 - POC 428.4 mmHg High 74.0-108.0 [facility] ([place]) Comment on above: Performed By: #### H CTRP, HGBRP, GLURP, CLRP, NARP, BGRP, KRP, CARP #### [place] [address] Base Excess - POC -0.5 mmol/L Normal [facility] ([place]) Comment on above: Performed By: #### K #### [place] [address] Oxygen saturation in Blood 99.0 % High 92.0-96.0 [facility] ([place]) Comment on above: Performed By: #### K #### [place] [address] PCO2 - POC 41.5 mmHg Normal 32.0-46.0 [facility] ([place]) Comment on above: Performed By: #### K #### [place] [address] pH (poct) - POC 7.388 Normal 7.380-7.460 [facility] ([place]) Comment on above: Performed By: #### K #### [place] [address] PO2 - POC 450.3 mmHg High 74.0-108.0 [facility] ([place]) Comment on above: Performed By: #### K #### [place] [address] Base Excess - POC -1.4 mmol/L Normal [facility] ([place]) Comment on above: Performed By: #### H CTRP, HGBRP, GLURP, CLRP, NARP, BGRP, KRP, CARP #### [place] [phone] CO2 [Moles/Vol] 24.0 mmol/L Normal 22.0-30.0 [facility] ([place]) Comment on above: Performed By: #### H CTRP, HGBRP, GLURP, CLRP, NARP, BGRP, KRP, CARP #### [place] [address] HCO3 (Bld) [Moles/Vol] 22.8 mmol/L Normal 21.0-29.0 [facility] ([place]) Comment on above: Performed By: #### H CTRP, HGBRP, GLURP, CLRP, NARP, BGRP, KRP, CARP #### [place] [address] Oxygen saturation in Blood 99.4 % High 92.0-96.0 [facility] ([place]) Comment on above: Performed By: #### H CTRP, HGBRP, GLURP, CLRP, NARP, BGRP, KRP, CARP #### [place] [address] PCO2 - POC 36.7 mmHg Normal 32.0-46.0 [facility] ([place]) Comment on above: Performed By: #### H CTRP, HGBRP, GLURP, CLRP, NARP, BGRP, KRP, CARP #### [place] [address] pH (poct) - POC 7.412 Normal 7.380-7.460 [facility] ([place]) Comment on above: Performed By: #### H CTRP, HGBRP, GLURP, CLRP, NARP, BGRP, KRP, CARP #### [place] [address] PO2 - POC 386.4 mmHg High 74.0-108.0 [facility] ([place]) Comment on above: Performed By: #### H CTRP, HGBRP, GLURP, CLRP, NARP, BGRP, KRP, CARP #### [place] [phone] Base Excess - POC -0.6 mmol/L Normal [facility] ([place]) Comment on above: Performed By: #### H CTRP, HGBRP, GLURP, CLRP, NARP, BGRP, KRP, CARP #### [place] [phone] CO2 [Moles/Vol] 25.9 mmol/L Normal 22.0-30.0 [facility] ([place]) Comment on above: Performed By: #### H CTRP, HGBRP, GLURP, CLRP, NARP, BGRP, KRP, CARP #### [place] [phone] HCO3 (Bld) [Moles/Vol] 24.6 mmol/L Normal 21.0-29.0 [facility] ([place]) Comment on above: Performed By: #### H CTRP, HGBRP, GLURP, CLRP, NARP, BGRP, KRP, CARP #### [place] [address] Oxygen saturation in Blood 99.4 % High 92.0-96.0 [facility] ([place]) Comment on above: Performed By: #### H CTRP, HGBRP, GLURP, CLRP, NARP, BGRP, KRP, CARP #### [place] [phone] PCO2 - POC 42.3 mmHg Normal 32.0-46.0 [facility] ([place]) Comment on above: Performed By: #### H CTRP, HGBRP, GLURP, CLRP, NARP, BGRP, KRP, CARP #### [address] [address] pH (poct) - POC 7.382 Normal 7.380-7.460 [facility] ([place]) Comment on above: Performed By: #### H CTRP, HGBRP, GLURP, CLRP, NARP, BGRP, KRP, CARP #### [address] [address] PO2 - POC 338.4 mmHg High 74.0-108.0 [facility] ([place]) Comment on above: Performed By: #### H CTRP, HGBRP, GLURP, CLRP, NARP, BGRP, KRP, CARP #### [address] [address] BGRPOrdered By: SYSTEM SYSTE Contests4Causes on 11-23-2021 HCO3 (Bld) [Moles/Vol] 24.4 mmol/L Normal 21.0-29.0 A [facility] Comment on above: Performed By: #### K #### [place] [address] BMPon 11-23-2021 BUN/Creatinine Ratio 18.9 ratio Normal 10.0-22.0 [facility] ([place]) Comment on above: Performed By: #### H CTRP, HGBRP, GLURP, CLRP, NARP, BGRP, KRP, CARP #### [address] [address] Calcium [Mass/Vol] 8.1 mg/dL Low 8.7-10.4 [facility] ([place]) Comment on above: Performed By: #### H CTRP, HGBRP, GLURP, CLRP, NARP, BGRP, KRP, CARP #### [address] [address] Chloride [Moles/Vol] 108 mmol/L Normal 98-110 [facility] ([place]) Comment on above: Performed By: #### H CTRP, HGBRP, GLURP, CLRP, NARP, BGRP, KRP, CARP #### [address] [address] CO2 [Moles/Vol] 24 mmol/L Normal 22-32 [facility] ([place]) Comment on above: Performed By: #### H CTRP, HGBRP, GLURP, CLRP, NARP, BGRP, KRP, CARP #### [address] [address] Creatinine [Mass/Vol] 0.74 mg/dL Normal 0.50-1.20 [facility] ([place]) Comment on above: Performed By: #### H CTRP, HGBRP, GLURP, CLRP, NARP, BGRP, KRP, CARP #### [address] [address] Electrolyte Balance 9.0 mEq/L Normal 4.0-15.0 [facility] ([place]) Comment on above: Performed By: #### H CTRP, HGBRP, GLURP, CLRP, NARP, BGRP, KRP, CARP #### [address] [address] Glucose [Mass/Vol] 152 mg/dL High 82-115 [facility] ([place]) Comment on above: Performed By: #### H CTRP, HGBRP, GLURP, CLRP, NARP, BGRP, KRP, CARP #### [address] [address] Potassium [Moles/Vol] 4.1 mmol/L Normal 3.5-5.0 [facility] ([place]) Comment on above: Performed By: #### H CTRP, HGBRP, GLURP, CLRP, NARP, BGRP, KRP, CARP #### [address] [address] Sodium [Moles/Vol] 141 mmol/L Normal 136-145 [facility] ([place]) Comment on above: Performed By: #### H CTRP, HGBRP, GLURP, CLRP, NARP, BGRP, KRP, CARP #### [address] [address] Urea nitrogen [Mass/Vol] 14.0 mg/dL Normal 8.0-22.0 [facility] ([place]) Comment on above: Performed By: #### H CTRP, HGBRP, GLURP, CLRP, NARP, BGRP, KRP, CARP #### [place] [address] CAIONon 11-23-2021 Calcium Ionized 1.02 mmol/L Low 1.12-1.32 [facility] ([place]) Comment on above: Performed By: #### H CTRP, HGBRP, GLURP, CLRP, NARP, BGRP, KRP, CARP #### [place] [address] CARPon 11-23-2021 Ionized Calcium - POC 0.99 mmol/L Low 1.12-1.32 [facility] ([place]) Comment on above: Performed By: #### H CTRP, HGBRP, GLURP, CLRP, NARP, BGRP, KRP, CARP #### [place] [address] Ionized Calcium - POC 1.04 mmol/L Low 1.12-1.32 [facility] ([place]) Comment on above: Performed By: #### H CTRP, HGBRP, GLURP, CLRP, NARP, BGRP, KRP, CARP #### [place] [address] Ionized Calcium - POC 0.98 mmol/L Low 1.12-1.32 [facility] ([place]) Comment on above: Performed By: #### K #### [place] [address] Ionized Calcium - POC 1.09 mmol/L Low 1.12-1.32 [facility] ([place]) Comment on above: Performed By: #### H CTRP, HGBRP, GLURP, CLRP, NARP, BGRP, KRP, CARP #### [place] [address] Ionized Calcium - POC 1.17 mmol/L Normal 1.12-1.32 [facility] ([place] Comment on above: Performed By: #### H CTRP, HGBRP, GLURP, CLRP, NARP, BGRP, KRP, CARP #### [place] [address] CBCon 11-23-2021 Erythrocyte distribution width (RBC) [Ratio] 13.6 % Normal 11.5-15.5 [facility] ([place]) Comment on above: Performed By: #### H CTRP, HGBRP, GLURP, CLRP, NARP, BGRP, KRP, CARP #### [address] [address] Hematocrit (Bld) [Volume fraction] 32.3 % Low 34.0-46.0 [facility] ([place]) Comment on above: Performed By: #### H CTRP, HGBRP, GLURP, CLRP, NARP, BGRP, KRP, CARP #### [place] [id number] Hgb 10.7 G/dL Low 12.0-16.0 [facility] ([place]) Comment on above: Performed By: #### H CTRP, HGBRP, GLURP, CLRP, NARP, BGRP, KRP, CARP #### [place] [id number] MCH (RBC) [Entitic mass] 29.8 pg Normal 27.0-33.0 [facility] ([place]) Comment on above: Performed By: #### H CTRP, HGBRP, GLURP, CLRP, NARP, BGRP, KRP, CARP #### [address] [address] MCHC 33.2 G/dL Normal 32.0-36.0 [facility] ([place]) Comment on above: Performed By: #### H CTRP, HGBRP, GLURP, CLRP, NARP, BGRP, KRP, CARP #### [address] [address] MCV (RBC) [Entitic vol] 89.9 fL Normal 80.0-99.0 [facility] ([place]) Comment on above: Performed By: #### H CTRP, HGBRP, GLURP, CLRP, NARP, BGRP, KRP, CARP #### [place] [id number] Platelet 220 10 3/mcL Normal 150-450 [facility] ([place]) Comment on above: Performed By: #### H CTRP, HGBRP, GLURP, CLRP, NARP, BGRP, KRP, CARP #### [address] [address] Platelet mean volume (Bld) [Entitic vol] 8.6 fL Normal 6.6-10.5 [facility] ([place]) Comment on above: Performed By: #### H CTRP, HGBRP, GLURP, CLRP, NARP, BGRP, KRP, CARP #### [address] [address] RBC 3.60 10 6/mcL Low 4.10-5.30 [facility] ([place]) Comment on above: Performed By: #### H CTRP, HGBRP, GLURP, CLRP, NARP, BGRP, KRP, CARP #### [address] [address] WBC 22.5 10 3/mcL High 4.5-10.8 [facility] ([place]) Comment on above: Performed By: #### H CTRP, HGBRP, GLURP, CLRP, NARP, BGRP, KRP, CARP #### [address] [address] CLRPon 11-23-2021 Chloride [Moles/Vol] 102 mmol/L Normal 98-110 [facility] ([place]) Comment on above: Performed By: #### H CTRP, HGBRP, GLURP, CLRP, NARP, BGRP, KRP, CARP #### [address] [address] Chloride [Moles/Vol] 100 mmol/L Normal 98-110 [facility] ([place] Comment on above: Performed By: #### H CTRP, HGBRP, GLURP, CLRP, NARP, BGRP, KRP, CARP #### [address] [address] Chloride [Moles/Vol] 100 mmol/L Normal 98-110 [facility] ([place]) Comment on above: Performed By: #### K #### [address] [address] Chloride [Moles/Vol] 103 mmol/L Normal 98-110 [facility] ([place] Comment on above: Performed By: #### H CTRP, HGBRP, GLURP, CLRP, NARP, BGRP, KRP, CARP #### [address] [address] Chloride [Moles/Vol] 102 mmol/L Normal 98-110 [facility] ([place]) Comment on above: Performed By: #### H CTRP, HGBRP, GLURP, CLRP, NARP, BGRP, KRP, CARP #### [address] [address] FIBon 11-23-2021 Fibrinogen 313 mg/dL Normal 250-560 [facility] ([place]) Comment on above: Performed By: #### H CTRP, HGBRP, GLURP, CLRP, NARP, BGRP, KRP, CARP #### [place] [id number] Fibrinogen 491 mg/dL Normal 250-560 [facility] ([place]) Comment on above: Performed By: #### H CTRP, HGBRP, GLURP, CLRP, NARP, BGRP, KRP, CARP #### [address] [address] GLURPon 11-23-2021 Glucose [Mass/Vol] 183 mg/dL High 82-115 [facility] ([place]) Comment on above: Performed By: #### H CTRP, HGBRP, GLURP, CLRP, NARP, BGRP, KRP, CARP #### [address] [address] Glucose [Mass/Vol] 203 mg/dL High 82-115 [facility] ([place]) Comment on above: Performed By: #### H CTRP, HGBRP, GLURP, CLRP, NARP, BGRP, KRP, CARP #### [address] [address] Glucose [Mass/Vol] 201 mg/dL High 82-115 [facility] ([place]) Comment on above: Performed By: #### H CTRP, HGBRP, GLURP, CLRP, NARP, BGRP, KRP, CARP #### [address] [address] Glucose [Mass/Vol] 150 mg/dL High 82-115 [facility] ([place]) Comment on above: Performed By: #### H CTRP, HGBRP, GLURP, CLRP, NARP, BGRP, KRP, CARP #### [place] [address] GLURPOrdered By: SYSTEM SYST EM on 11-23-2021 Glucose [Mass/Vol] 204 mg/dL High 82-115 [facility] id Comm SS Comment on above: Performed By: #### K #### [address] [address] HCTRPon 11-23-2021 Hematocrit (Bld) [Volume fraction] 29.0 % Low 37.0-47.0 [facility] ([place]) Comment on above: Performed By: #### H CTRP, HGBRP, GLURP, CLRP, NARP, BGRP, KRP, CARP #### [place] [phone] Hematocrit (Bld) [Volume fraction] 29.0 % Low 37.0-47.0 [facility] ([place] Comment on above: Performed By: #### H CTRP, HGBRP, GLURP, CLRP, NARP, BGRP, KRP, CARP #### [place] [phone] Hematocrit (Bld) [Volume fraction] 37.0 % Normal 37.0-47.0 [facility] ([place] Comment on above: Performed By: #### H CTRP, HGBRP, GLURP, CLRP, NARP, BGRP, KRP, CARP #### [address] [address] Hematocrit (Bld) [Volume fraction] 40.0 % Normal 37.0-47.0 [facility] ([place] Comment on above: Performed By: #### H CTRP, HGBRP, GLURP, CLRP, NARP, BGRP, KRP, CARP #### [place] [address] HCTRPOrdered By: SYSTEM SYST EM on 11-23-2021 Hematocrit (Bld) [Volume fraction] 28.0 % Low 37.0-47.0 [facility] Rapid Comm SS Comment on above: Performed By: #### K #### [place] [address] HGBRPon 11-23-2021 Hemoglobin (POC) 9.8 G/dL Low 12.0-16.0 [facility] ([place]) Comment on above: Performed By: #### H CTRP, HGBRP, GLURP, CLRP, NARP, BGRP, KRP, CARP #### [place] [address] Hemoglobin (POC) 9.9 G/dL Low 12.0-16.0 [facility] ([place] Comment on above: Performed By: #### H CTRP, HGBRP, GLURP, CLRP, NARP, BGRP, KRP, CARP #### [place] [address] Hemoglobin (POC) 9.5 G/dL Low 12.0-16.0 [facility] ([place]) Comment on above: Performed By: #### K #### [place] [address] Hemoglobin (POC) 12.5 G/dL Normal 12.0-16.0 [facility] ([place]) Comment on above: Performed By: #### H CTRP, HGBRP, GLURP, CLRP, NARP, BGRP, KRP, CARP #### [place] [phone] Hemoglobin (POC) 13.7 G/dL Normal 12.0-16.0 [facility] ([place]) Comment on above: Performed By: #### H CTRP, HGBRP, GLURP, CLRP, NARP, BGRP, KRP, CARP #### Luis Miguel[address] [address] [place] 11-23-2021 Potassium [Moles/Vol] 4.2 mmol/L Normal 3.5-5.0 [facility] ([place]) Comment on above: Performed By: #### H CTRP, HGBRP, GLURP, CLRP, NARP, BGRP, KRP, CARP #### [address] [address] KRPon 11-23-2021 Potassium [Moles/Vol] 4.2 mmol/L Normal 3.5-5.0 [facility] ([place] Comment on above: Performed By: #### H CTRP, HGBRP, GLURP, CLRP, NARP, BGRP, KRP, CARP #### [place] [address] Potassium [Moles/Vol] 4.3 mmol/L Normal 3.5-5.0 [facility] ([place] Comment on above: Performed By: #### H CTRP, HGBRP, GLURP, CLRP, NARP, BGRP, KRP, CARP #### [place] [address] Potassium [Moles/Vol] 4.2 mmol/L Normal 3.5-5.0 [facility] ([place] Comment on above: Performed By: #### H CTRP, HGBRP, GLURP, CLRP, NARP, BGRP, KRP, CARP #### [place] [address] Potassium [Moles/Vol] 3.9 mmol/L Normal 3.5-5.0 [facility] ([place] Comment on above: Performed By: #### H CTRP, HGBRP, GLURP, CLRP, NARP, BGRP, KRP, CARP #### [address] [address] KRPOrdered By: SYSTEM SYSTEM on 11-23-2021 Potassium [Moles/Vol] 5.1 mmol/L High 3.5-5.0 Rapid Comm SS Comment on above: Performed By: #### K #### [place] [id number] [place] [address] LABORATORYOrdered By: Angie Mujica on 11-23-2021 aPTT [...] Chemistry and C hemistry - challengeOrdered By: Syndero SYSTEM on 11-23-2021 Chloride [Moles/Vol] 100 mmol/L Invalid Interpretation Code 98 - 110 mEq/L Rapid Comm SS Sodium [Moles/Vol] 132 mmol/L Invalid Interpretation Code 136 - 145 mEq/L AH Rapid Comm SS MGon 11-23-2021 Magnesium [Mass/Vol] 2.5 mg/dL High 1.6-2.4 [facility] ([place]) Comment on above: Performed By: #### H CTRP, HGBRP, GLURP, CLRP, NARP, BGRP, KRP, CARP #### [address] [address] NARPon 11-23-2021 Sodium [Moles/Vol] 134 mmol/L Low 136-145 [facility] ([place]) Comment on above: Performed By: #### H CTRP, HGBRP, GLURP, CLRP, NARP, BGRP, KRP, CARP #### [address] [address] Sodium [Moles/Vol] 132 mmol/L Low 136-145 [facility] ([place]) Comment on above: Performed By: #### H CTRP, HGBRP, GLURP, CLRP, NARP, BGRP, KRP, CARP #### [address] [address] Sodium [Moles/Vol] 132 mmol/L Low 136-145 [facility] ([place]) Comment on above: Performed By: #### K #### [address] [address] Sodium [Moles/Vol] 134 mmol/L Low 136-145 [facility] ([place]) Comment on above: Performed By: #### H CTRP, HGBRP, GLURP, CLRP, NARP, BGRP, KRP, CARP #### [address] [address] Sodium [Moles/Vol] 136 mmol/L Normal 136-145 [facility] ([place]) Comment on above: Performed By: #### H CTRP, HGBRP, GLURP, CLRP, NARP, BGRP, KRP, CARP #### [address] [address] PHOSon 11-23-2021 Phosphate [Mass/Vol] 1.5 mg/dL Low 2.4-5.1 [facility] ([place]) Comment on above: Result Comment: No te - New Reference Range in effect 19 Performed By: #### H CTRP, HGBRP, GLURP, CLRP, NARP, BGRP, KRP, CARP #### [address] [address] PLTon 11-23-2021 Platelet 283 10 3/mcL Normal 150-450 [facility] ([place]) Comment on above: Performed By: #### H CTRP, HGBRP, GLURP, CLRP, NARP, BGRP, KRP, CARP #### [address] [address] PROon 11-23-2021 INR Coag (PPP) [Relative time] 1.1 {INR} Normal [facility] ([place]) Comment on above: Result Comment: [employer] (CHEST, 1992, [id number]) recommended therapeutic range for oral anticoagulant therapy is: LOW RISK: Prophylaxis of venous thrombosis INR: 2.0-3.0 Treatment of pulmonary embolism 2.0-3.0 Prevention of systemic embolism 2.0-3.0 HIGH RISK: Mechanical prosthetic valves 2.5-3.5 Performed By: #### H CTRP, HGBRP, GLURP, CLRP, NARP, BGRP, KRP, CARP #### [address] [address] PT Coag (PPP) [Time] 13.1 s Normal 9.0-14.9 [facility] ([place]) Comment on above: Result Comment: Effe ctive 09/30/07, Protime results may be affected by some antibiotics (i.e. Ciprofloxacin, Azithromycin, Bactrim) which may potentiate the action of oral anticoagulants, with further increases in Protime/INR. Performed By: #### H CTRP, HGBRP, GLURP, CLRP, NARP, BGRP, KRP, CARP #### [address] [address] INR Coag (PPP) [Relative time] 0.9 {INR} Normal [facility] ([place]) Comment on above: Result Comment: [employer] Physicians (CHEST, 1991, 102:[id number]) recommended therapeutic range for oral anticoagulant therapy is: LOW RISK: Prophylaxis of venous thrombosis INR: 2.0-3.0 Treatment of pulmonary embolism 2.0-3.0 Prevention of systemic embolism 2.0-3.0 HIGH RISK: Mechanical prosthetic valves 2.5-3.5 Performed By: #### H CTRP, HGBRP, GLURP, CLRP, NARP, BGRP, KRP, CARP #### [address] [address] PT Coag (PPP) [Time] 10.8 s Normal 9.0-14.9 [facility] ([place]) Comment on above: Result Comment: Effe ctive 09/30/07, Protime results may be affected by some antibiotics (i.e. Ciprofloxacin, Azithromycin, Bactrim) which may potentiate the action of oral anticoagulants, with further increases in Protime/INR. Performed By: #### H CTRP, HGBRP, GLURP, CLRP, NARP, BGRP, KRP, CARP #### [address] [address] Platelet (Product)on Platelet Product Ready Platelet Ready fo r Pickup [facility] ([place]) Comment on above: Order Comment: ON HO LD FOR CVOR Performed By: #### H CTRP, HGBRP, GLURP, CLRP, NARP, BGRP, KRP, CARP #### [address] [address] RBC (Product)on 11-23-2021 RBC Product Ready RBC Ready for Pickup Normal [facility] ([place]) Comment on above: Performed By: #### H CTRP, HGBRP, GLURP, CLRP, NARP, BGRP, KRP, CARP #### [address] [address] XR CHEST 1 VIEWon 11-23-2021 XR CHEST [...] POLLY Mercado [facility] ([place]) [id number] 11-17-2021 SARS-CoV-2 (COVID-19) RNA SLOAN+probe Ql (Unsp spec) Negative Normal Negative [facility] ([place]) Comment on above: Performed By: #### H CTRP, HGBRP, GLURP, CLRP, NARP, BGRP, KRP, CARP #### [place] [address] SARS-CoV-2 (COVID-19) RNA SLOAN+probe Ql (Unsp spec) Normal [facility] ([place]) Comment on above: Result Comment: Nega tive [...] GLURP, CLRP, NARP, BGRP, KRP, CARP #### [place] [address] Date of Onset [id number] Invalid Interpretation Code [facility] ([place]) Comment on above: Performed By: #### H CTRP, HGBRP, GLURP, CLRP, NARP, BGRP, KRP, CARP #### [place] [address] Employed in Healthcare No On license of [facility] ([place]) Comment on above: Performed By: #### H CTRP, HGBRP, GLURP, CLRP, NARP, BGRP, KRP, CARP #### [place] [address] First Test No [facility] ([place]) Comment on above: Performed By: #### H CTRP, HGBRP, GLURP, CLRP, NARP, BGRP, KRP, CARP #### [place] [address] Hospitalized No [facility] ([place]) Comment on above: Performed By: #### H CTRP, HGBRP, GLURP, CLRP, NARP, BGRP, KRP, CARP #### [place] [address] ICU No [facility] ([place]) Comment on above: Performed By: #### H CTRP, HGBRP, GLURP, CLRP, NARP, BGRP, KRP, CARP #### [place] [address] Not [facility] ([place]) Comment on above: Performed By: #### H CTRP, HGBRP, GLURP, CLRP, NARP, BGRP, KRP, CARP #### [place] [address] Resides in Congregate Care Setting No [facility] ([place]) Comment on above: Performed By: #### H CTRP, HGBRP, GLURP, CLRP, NARP, BGRP, KRP, CARP #### [place] [address] Symptomatic as Defined by [facility] No Normal [facility] ([place]) Comment on above: Performed By: #### H CTRP, HGBRP, GLURP, CLRP, NARP, BGRP, KRP, CARP #### [place] [address] LABORATORYOrdered By: Emily Gee on 11-17-2021 ADMITTED [...] Auto (Unsp spec) [#/Vol] 3.11 10*3/uL 0.83-4.51 [facility] Work Phone: Basophil percentageon 2021 Basophils/100 WBC (Bld) 0.6 % 0-1 [facility] Work Phone: Chloride [Moles/Vol] 102 mmol/L 98-107 [facility] Work Phone: Eosinophils/100 WBC (Bld) 1.7 % 0-5 [facility] Work Phone: Glucose [Mass/Vol] 183 mg/dL 74-106 [facility] Work Phone: Comment on above: Fasting Glucose resu lt greater than or equal to 126 mg/dL suggests DIABETES MELLITUS per A.D.A. criteria. Neutrophils (Bld) [#/Vol] 11.0 10*3/uL 2.0-7.7 [facility] Work Phone: Neutrophils/100 WBC (Bld) 70.1 % 47-70 [facility] Work Phone: Potassium [Moles/Vol] 4.1 mmol/L 3.5-5.1 [facility] Work Phone: Sodium [Moles/Vol] 136 mmol/L 136-145 [facility] Work Phone: WBC (Bld) [#/Vol] 15.7 10*3/uL 4.4-11.0 [facility] Work Phone: Blood erythrocytes count (nu mber/volume)on 11-05-2021 RBC (Bld) [#/Vol] 4.84 10*6/uL 4.2-5.4 [facility] Work Phone: Blood hemoglobin measurement (mass/volume)on 11-05-2021 Hemoglobin (Bld) [Mass/Vol] 14.4 g/dL 12.0-15.0 [facility] Work Phone: Blood lymphocytes/100 leukoc yteson 11-05-2021 Lymphocytes/100 WBC (Bld) 19.8 % 19-41 [facility] Work Phone: Blood monocytes/100 leukocyt eson 11-05-2021 Monocytes/100 WBC (Bld) 6.9 % 0-10 [facility] Work Phone: Blood platelet mean volumeon 11-05-2021 Platelet mean volume (Bld) [Entitic vol] 10.2 fL 6.2-12.0 [facility] Work Phone: Determination of erythrocyte mean corpuscular volume (MCV)on 11-05-2021 MCV (RBC) [Entitic vol] 91.3 fL 81-99 [facility] Work Phone: Hematocrit Auto (Bld) [Volum e fraction]on 11-05-2021 Hematocrit (Bld) [Volume fraction] 44.2 % 37-47 [facility] Work Phone: Laboratory - Chemistry and C hemistry - challengeon 11-05-2021 CO2 [Moles/Vol] 27.0 mmol/L 21.0-32.0 [facility] Work Phone: Urea nitrogen/Creatinine [Mass ratio] 19.9 mg/mg 10-20 [facility] Work Phone: Laboratory - Coagulationon 0 11-05-2021 aPTT Coag (Bld) [Time] 25.6 s 24.1-36.2 [facility] Work Phone: [phone] Laboratory - Hematology and Cell countson 11-05-2021 Erythrocyte distribution width (RBC) [Entitic vol] 44.1 fL 35.1-43.9 [facility] Work Phone: [phone] Erythrocyte distribution width (RBC) [Ratio] 13.1 % 11.6-14.6 [facility] Work Phone: [phone] Immature granulocytes/100 WBC (Bld) 0.900 % 0.0-0.9 [facility] Work Phone: [phone] Comment on above: IG% - Immature Granu locytes (promyelocytes, myelocytes and metamyelocytes) > 1% indicates that a LEFT SHIFT is Present. MCH (RBC) [Entitic mass] 29.8 pg 27.0-32.0 [facility] Work Phone: [phone] Nucleated RBC/100 WBC (Bld) [Ratio] 0 % 0-5 [facility] Work Phone: [phone] MCHC Auto (RBC) [Mass/Vol]on 11-05-2021 MCHC (RBC) [Mass/Vol] 32.6 g/dL 32-36 [facility] Work Phone: [phone] No Panel Informationon 11-05 Estimated Creatinine Clearance Calc 51.75 ml/min [facility] Work Phone: [phone] Estimated GFR (MDRD) Amer 91 mL/min >60 [facility] Work Phone: [phone] Comment on above: GFR Calc Estimated GFR (MDRD) Non-Af Amer 75 mL/min >60 [facility] Work Phone: [phone] Comment on above: Non- GFR Calc Troponin I High Sensitivity 12 pg/mL 3.0-54.0 [facility] Work Phone: [phone] Comment on above: Please Note: New Deidre t Units and Gender Specific Reference Ranges. For more information see Policy Stat Procedure Centre High Sensitivity Troponin (TNIH) and attachments. Platelets bldon 11-05-2021 Platelets (Bld) [#/Vol] 320 10*3/uL 150-450 [facility] Work Phone: Serum or plasma calcium betsy urement (mass/volume)on 11-05-2021 Calcium [Mass/Vol] 9.6 mg/dL 8.5-10.1 [facility] Work Phone: Serum or plasma creatinine m easurement (mass/volume)on 11-05-2021 Creatinine [Mass/Vol] 0.80 mg/dL 0.55-1.02 [place] [facility] Work Phone: Comment on above: The validity of the calculated GFR & GFRAA in patients over 70 years has not been determined. Clinical correlation is essential. Serum or plasma urea nitroge n measurement (mass/volume)on 11-05-2021 Urea nitrogen [Mass/Vol] 16 mg/dL 7-18 [facility] Work Phone: Thin prep Papanicolaou smear with manual screeningon 11-05-2021 Thin prep Papanicolaou smear with manual screening 7 5-15 [facility] Work Phone: XR CHEST 2 [...] 11/01/2021 8:01:10 AM Ordering Provider: POLLY Mercado [facility] ([place]) .Auto Diffon 10-31-2021 Basophil, Absolute 0.1 10 3/mcL Normal 0.0-0.3 [facility] ([place]) Comment on above: Performed By: #### H CTRP, HGBRP, GLURP, CLRP, NARP, BGRP, KRP, CARP #### [address] [address] Basophils/100 WBC (Bld) 0.8 % Normal 0.0-2.5 [facility] ([place]) Comment on above: Performed By: #### H CTRP, HGBRP, GLURP, CLRP, NARP, BGRP, KRP, CARP #### [address] [address] Eosinophil, Absolute 0.3 10 3/mcL Normal 0.0-0.7 [facility] ([place]) Comment on above: Performed By: #### H CTRP, HGBRP, GLURP, CLRP, NARP, BGRP, KRP, CARP #### [address] [address] Eosinophils/100 WBC (Bld) 2.6 % Normal 0.0-6.0 [facility] ([place]) Comment on above: Performed By: #### H CTRP, HGBRP, GLURP, CLRP, NARP, BGRP, KRP, CARP #### [address] [address] Lymphocyte, Absolute 2.5 10 3/mcL Normal 0.9-4.3 [facility] ([place]) Comment on above: Performed By: #### H CTRP, HGBRP, GLURP, CLRP, NARP, BGRP, KRP, CARP #### [address] [address] Lymphocytes/100 WBC (Bld) 22.3 % Normal 20.0-40.0 [facility] ([place]) Comment on above: Performed By: #### H CTRP, HGBRP, GLURP, CLRP, NARP, BGRP, KRP, CARP #### [address] [address] Monocyte, Absolute 0.7 10 3/mcL Normal 0.1-1.4 [facility] ([place] Comment on above: Performed By: #### H CTRP, HGBRP, GLURP, CLRP, NARP, BGRP, KRP, CARP #### [address] [address] Monocytes/100 WBC (Bld) 6.5 % Normal 2.0-13.0 [facility] ([place]) Comment on above: Performed By: #### H CTRP, HGBRP, GLURP, CLRP, NARP, BGRP, KRP, CARP #### [address] [address] Neutrophils/100 WBC (Bld) 67.8 % Normal 50.0-75.0 [facility] ([place]) Comment on above: Performed By: #### H CTRP, HGBRP, GLURP, CLRP, NARP, BGRP, KRP, CARP #### [address] [address] .GFRon 10-31-2021 GFR Non- >60 Normal [facility] ([place]) Comment on above: Result Comment: GFR Population [...] CLRP, NARP, BGRP, KRP, CARP #### [address] [address] GFR >60 Normal [facility] ([place]) Comment on above: Result Comment: GFR Population [...] GLURP, CLRP, NARP, BGRP, KRP, CARP #### [place] [address] .MDWon 10-31-2021 Monocyte Distribution Width Not performed Normal 0.00-20.00 [facility] ([place]) Comment on above: Result Comment: MDW testing performed only on adult ER patients between the ages of 18-89 years. Performed By: #### H CTRP, HGBRP, GLURP, CLRP, NARP, BGRP, KRP, CARP #### [address] [address] .NEUABSon 10-31-2021 Neutrophil, Absolute 7.7 10 3/mcL Normal 2.3-8.1 [facility] ([place]) Comment on above: Performed By: #### H CTRP, HGBRP, GLURP, CLRP, NARP, BGRP, KRP, CARP #### [place] [address] A1Con 10-31-2021 HbA1c (Bld) [Mass fraction] 9.7 % High 4.0-6.0 [facility] ([place]) Comment on above: Performed By: #### H CTRP, HGBRP, GLURP, CLRP, NARP, BGRP, KRP, CARP #### [address] [address] ABO/Rh (Gel)on 10-31-2021 ABO/Rh Interp Positive Invalid Interpretation Code [facility] ([place]) Comment on above: Performed By: #### H CTRP, HGBRP, GLURP, CLRP, NARP, BGRP, KRP, CARP #### [place] [phone] ABS (Gel)on 10-31-2021 ABSC Interp (Gel) Negative Normal [facility] ([place]) Comment on above: Performed By: #### H CTRP, HGBRP, GLURP, CLRP, NARP, BGRP, KRP, CARP #### [place] [phone] APTTon 10-31-2021 aPTT Coag (Bld) [Time] 28.2 s Normal 25.0-35.0 [facility] ([place]) Comment on above: Result Comment: For Heparin anticoagulation therapy, the recommended therapeutic range is: 54-77 seconds (APTT Correlation with Anti-Xa therapeutic range of 0.3-0.7 units/ml). PLEASE REFERENCE THE PHARMACY PROTOCOL FOR DOSING. Performed By: #### H CTRP, HGBRP, GLURP, CLRP, NARP, BGRP, KRP, CARP #### [place] [address] Heparin dose (APTT) None Normal [facility] ([place]) Comment on above: Performed By: #### H CTRP, HGBRP, GLURP, CLRP, NARP, BGRP, KRP, CARP #### [address] [address] CBCon 10-31-2021 Erythrocyte distribution width (RBC) [Ratio] 13.6 % Normal 11.5-15.5 [facility] ([place]) Comment on above: Performed By: #### H CTRP, HGBRP, GLURP, CLRP, NARP, BGRP, KRP, CARP #### [place] [address] Hematocrit (Bld) [Volume fraction] 40.5 % Normal 34.0-46.0 [facility] ([place]) Comment on above: Performed By: #### H CTRP, HGBRP, GLURP, CLRP, NARP, BGRP, KRP, CARP #### [place] [address] Hgb 13.4 G/dL Normal 12.0-16.0 [facility] ([place]) Comment on above: Performed By: #### H CTRP, HGBRP, GLURP, CLRP, NARP, BGRP, KRP, CARP #### [place] [address] MCH (RBC) [Entitic mass] 29.8 pg Normal 27.0-33.0 [facility] ([place]) Comment on above: Performed By: #### H CTRP, HGBRP, GLURP, CLRP, NARP, BGRP, KRP, CARP #### [place] [address] MCHC 33.1 G/dL Normal 32.0-36.0 [facility] ([place]) Comment on above: Performed By: #### H CTRP, HGBRP, GLURP, CLRP, NARP, BGRP, KRP, CARP #### [place] [address] MCV (RBC) [Entitic vol] 90.0 fL Normal 80.0-99.0 [facility] ([place]) Comment on above: Performed By: #### H CTRP, HGBRP, GLURP, CLRP, NARP, BGRP, KRP, CARP #### [place] [phone] Platelet 291 10 3/mcL Normal 150-450 [facility] ([place]) Comment on above: Performed By: #### H CTRP, HGBRP, GLURP, CLRP, NARP, BGRP, KRP, CARP #### [address] [address] Platelet mean volume (Bld) [Entitic vol] 8.9 fL Normal 6.6-10.5 [facility] ([place]) Comment on above: Performed By: #### H CTRP, HGBRP, GLURP, CLRP, NARP, BGRP, KRP, CARP #### [address] [address] RBC 4.50 10 6/mcL Normal 4.10-5.30 [facility] ([place]) Comment on above: Performed By: #### H CTRP, HGBRP, GLURP, CLRP, NARP, BGRP, KRP, CARP #### [address] [address] WBC 11.4 10 3/mcL High 4.5-10.8 [facility] ([place]) Comment on above: Performed By: #### H CTRP, HGBRP, GLURP, CLRP, NARP, BGRP, KRP, CARP #### [address] [address] CMPon 10-31-2021 Albumin Level 3.4 G/dL Normal 3.2-4.8 [facility] ([place]) Comment on above: Performed By: #### H CTRP, HGBRP, GLURP, CLRP, NARP, BGRP, KRP, CARP #### [address] [address] Albumin/Globulin [Mass ratio] 1.0 {ratio} Normal 0.9-1.6 [facility] ([place]) Comment on above: Performed By: #### H CTRP, HGBRP, GLURP, CLRP, NARP, BGRP, KRP, CARP #### [address] [address] ALP [Catalytic activity/Vol] 113 U/L Normal 38-126 [facility] ([place]) Comment on above: Performed By: #### H CTRP, HGBRP, GLURP, CLRP, NARP, BGRP, KRP, CARP #### [address] [address] ALT [Catalytic activity/Vol] 25 U/L Normal 10-49 [facility] ([place]) Comment on above: Performed By: #### H CTRP, HGBRP, GLURP, CLRP, NARP, BGRP, KRP, CARP #### [address] [address] AST [Catalytic activity/Vol] 24 U/L Normal 8-34 [facility] ([place]) Comment on above: Performed By: #### H CTRP, HGBRP, GLURP, CLRP, NARP, BGRP, KRP, CARP #### [address] [address] Bili Total 0.50 mg/dL Normal 0.20-1.20 [facility] ([place]) Comment on above: Result Comment: Use of this assay is not recommended for patients undergoing treatment with eltrombopag due to the potential for falsely elevated results. Performed By: #### H CTRP, HGBRP, GLURP, CLRP, NARP, BGRP, KRP, CARP #### [address] [address] BUN/Creatinine Ratio 27.6 ratio High 10.0-22.0 [facility] ([place] Comment on above: Performed By: #### H CTRP, HGBRP, GLURP, CLRP, NARP, BGRP, KRP, CARP #### [address] [address] Calcium [Mass/Vol] 9.6 mg/dL Normal 8.7-10.4 [facility] ([place]) Comment on above: Performed By: #### H CTRP, HGBRP, GLURP, CLRP, NARP, BGRP, KRP, CARP #### [address] [address] Chloride [Moles/Vol] 98 mmol/L Normal 98-110 [facility] ([place]) Comment on above: Performed By: #### H CTRP, HGBRP, GLURP, CLRP, NARP, BGRP, KRP, CARP #### [address] [address] CO2 [Moles/Vol] 31 mmol/L Normal 22-32 [facility] ([place]) Comment on above: Performed By: #### H CTRP, HGBRP, GLURP, CLRP, NARP, BGRP, KRP, CARP #### [address] [address] Creatinine [Mass/Vol] 0.76 mg/dL Normal 0.50-1.20 [facility] ([place]) Comment on above: Performed By: #### H CTRP, HGBRP, GLURP, CLRP, NARP, BGRP, KRP, CARP #### [address] [address] Electrolyte Balance 5.0 mEq/L Normal 4.0-15.0 [facility] ([place]) Comment on above: Performed By: #### H CTRP, HGBRP, GLURP, CLRP, NARP, BGRP, KRP, CARP #### [address] [address] Globulin 3.5 G/dL Normal 1.5-3.8 [facility] ([place]) Comment on above: Performed By: #### H CTRP, HGBRP, GLURP, CLRP, NARP, BGRP, KRP, CARP #### [address] [address] Glucose [Mass/Vol] 233 mg/dL High 82-115 [facility] ([place]) Comment on above: Performed By: #### H CTRP, HGBRP, GLURP, CLRP, NARP, BGRP, KRP, CARP #### [address] [address] Potassium [Moles/Vol] 5.0 mmol/L Normal 3.5-5.0 [facility] ([place]) Comment on above: Performed By: #### H CTRP, HGBRP, GLURP, CLRP, NARP, BGRP, KRP, CARP #### [address] [address] Sodium [Moles/Vol] 134 mmol/L Low 136-145 [facility] ([place]) Comment on above: Performed By: #### H CTRP, HGBRP, GLURP, CLRP, NARP, BGRP, KRP, CARP #### [place] [id number] Total Protein 6.9 G/dL Normal 5.7-8.2 [facility] ([place]) Comment on above: Result Comment: No te - New Reference Range in effect 19 Performed By: #### H CTRP, HGBRP, GLURP, CLRP, NARP, BGRP, KRP, CARP #### [place] [phone] Urea nitrogen [Mass/Vol] 21.0 mg/dL Normal 8.0-22.0 [facility] ([place]) Comment on above: Performed By: #### H CTRP, HGBRP, GLURP, CLRP, NARP, BGRP, KRP, CARP #### [place] [phone] FIBon 10-31-2021 Fibrinogen 504 mg/dL Normal 250-560 [facility] ([place]) Comment on above: Performed By: #### H CTRP, HGBRP, GLURP, CLRP, NARP, BGRP, KRP, CARP #### [address] [address] PROon 10-31-2021 INR Coag (PPP) [Relative time] 0.9 {INR} Normal [facility] ([place]) Comment on above: Result Comment: [employer] (CHEST, 1992, 102:312S-25S) recommended therapeutic range for oral anticoagulant therapy is: LOW RISK: Prophylaxis of venous thrombosis INR: 2.0-3.0 Treatment of pulmonary embolism 2.0-3.0 Prevention of systemic embolism 2.0-3.0 HIGH RISK: Mechanical prosthetic valves 2.5-3.5 Performed By: #### H CTRP, HGBRP, GLURP, CLRP, NARP, BGRP, KRP, CARP #### [place] [phone] PT Coag (PPP) [Time] 10.9 s Normal 9.0-14.9 [facility] ([place]) Comment on above: Result Comment: Effe ctive 09/30/07, Protime results may be affected by some antibiotics (i.e. Ciprofloxacin, Azithromycin, Bactrim) which may potentiate the action of oral anticoagulants, with further increases in Protime/INR. Performed By: #### H CTRP, HGBRP, GLURP, CLRP, NARP, BGRP, KRP, CARP #### [place] [address] TSHon 10-31-2021 TSH 9.830 mIU/mL High 0.550-4.780 [facility] ([place]) Comment on above: Result Comment: No te - New Reference Range in effect 19 Performed By: #### H CTRP, HGBRP, GLURP, CLRP, NARP, BGRP, KRP, CARP #### [place] [address] UAon 10-31-2021 Color (U) Straw Normal [facility] ([place]) Comment on above: Performed By: #### H CTRP, HGBRP, GLURP, CLRP, NARP, BGRP, KRP, CARP #### [place] [address] Glucose (U) [Mass/Vol] 500 mg/dL Abnormal Negative [facility] ([place]) Comment on above: Performed By: #### H CTRP, HGBRP, GLURP, CLRP, NARP, BGRP, KRP, CARP #### [place] [address] Ketones Ql (U) Negative Normal Neg-Trace [facility] ([place]) Comment on above: Performed By: #### H CTRP, HGBRP, GLURP, CLRP, NARP, BGRP, KRP, CARP #### [place] [address] UA Appear Clear Normal Clear [facility] ([place]) Comment on above: Performed By: #### H CTRP, HGBRP, GLURP, CLRP, NARP, BGRP, KRP, CARP #### [place] [address] UA Blood Negative Normal Neg-Trace [facility] ([place]) Comment on above: Performed By: #### H CTRP, HGBRP, GLURP, CLRP, NARP, BGRP, KRP, CARP #### [address] [address] UA Leuk Est Small Abnormal Negative [facility] ([place]) Comment on above: Performed By: #### H CTRP, HGBRP, GLURP, CLRP, NARP, BGRP, KRP, CARP #### [address] [address] UA Nitrite Negative Normal Negative [facility] ([place]) Comment on above: Performed By: #### H CTRP, HGBRP, GLURP, CLRP, NARP, BGRP, KRP, CARP #### [place] [address] UA pH 5.5 Normal 5.0 - 8.0 [facility] ([place]) Comment on above: Performed By: #### H CTRP, HGBRP, GLURP, CLRP, NARP, BGRP, KRP, CARP #### [place] [address] UA Protein Negative Normal Negative [facility] ([place]) Comment on above: Performed By: #### H CTRP, HGBRP, GLURP, CLRP, NARP, BGRP, KRP, CARP #### [address] [address] UA Spec Grav 1.010 Normal 1.006-1.029 [facility] ([place]) Comment on above: Performed By: #### H CTRP, HGBRP, GLURP, CLRP, NARP, BGRP, KRP, CARP #### [address] [address] UA Specimen Type Clean Catch Normal [facility] ([place]) Comment on above: Performed By: #### H CTRP, HGBRP, GLURP, CLRP, NARP, BGRP, KRP, CARP #### [address] [address] UA Urobilinogen 0.2 E.U./dL Normal 0.2-1.0 [facility] ([place]) Comment on above: Performed By: #### H CTRP, HGBRP, GLURP, CLRP, NARP, BGRP, KRP, CARP #### [place] [address] Urobilinogen (U) [Mass/Vol] Negative Normal Neg-Trace [facility] ([place]) Comment on above: Performed By: #### H CTRP, HGBRP, GLURP, CLRP, NARP, BGRP, KRP, CARP #### [address] [address] UAMICon 10-31-2021 UA RBC Negative Normal 0-2 [facility] ([place]) Comment on above: Performed By: #### H CTRP, HGBRP, GLURP, CLRP, NARP, BGRP, KRP, CARP #### [place] [address] UA Squam Epithelial Negative Normal 0-20 [facility] ([place]) Comment on above: Performed By: #### H CTRP, HGBRP, GLURP, CLRP, NARP, BGRP, KRP, CARP #### [place] [address] UA WBC Rare Normal 0-5 [facility] ([place]) Comment on above: Performed By: #### H CTRP, HGBRP, GLURP, CLRP, NARP, BGRP, KRP, CARP #### [address] [address] .Auto Diffon 10-11-2021 Basophil, Absolute 0.1 10 3/mcL Normal 0.0-0.3 [facility] ([place]) Comment on above: Performed By: #### H CTRP, HGBRP, GLURP, CLRP, NARP, BGRP, KRP, CARP #### [place] [phone] Basophils/100 WBC (Bld) 0.4 % Normal 0.0-2.5 [facility] ([place]) Comment on above: Performed By: #### H CTRP, HGBRP, GLURP, CLRP, NARP, BGRP, KRP, CARP #### [address] [address] Eosinophil, Absolute 0.3 10 3/mcL Normal 0.0-0.7 [facility] ([place]) Comment on above: Performed By: #### H CTRP, HGBRP, GLURP, CLRP, NARP, BGRP, KRP, CARP #### [address] [id number] Eosinophils/100 WBC (Bld) 2.2 % Normal 0.0-6.0 [facility] ([place]) Comment on above: Performed By: #### H CTRP, HGBRP, GLURP, CLRP, NARP, BGRP, KRP, CARP #### [address] [address] Lymphocyte, Absolute 2.8 10 3/mcL Normal 0.9-4.3 [facility] ([place]) Comment on above: Performed By: #### H CTRP, HGBRP, GLURP, CLRP, NARP, BGRP, KRP, CARP #### [address] [address] Lymphocytes/100 WBC (Bld) 22.2 % Normal 20.0-40.0 [facility] ([place]) Comment on above: Performed By: #### H CTRP, HGBRP, GLURP, CLRP, NARP, BGRP, KRP, CARP #### [address] [address] Monocyte, Absolute 1.0 10 3/mcL Normal 0.1-1.4 [facility] ([place]) Comment on above: Performed By: #### H CTRP, HGBRP, GLURP, CLRP, NARP, BGRP, KRP, CARP #### [address] [address] Monocytes/100 WBC (Bld) 7.7 % Normal 2.0-13.0 [facility] ([place]) Comment on above: Performed By: #### H CTRP, HGBRP, GLURP, CLRP, NARP, BGRP, KRP, CARP #### [address] [address] Neutrophils/100 WBC (Bld) 67.5 % Normal 50.0-75.0 [facility] ([place]) Comment on above: Performed By: #### H CTRP, HGBRP, GLURP, CLRP, NARP, BGRP, KRP, CARP #### [address] [address] .GFRon 10-11-2021 GFR Non- >60 Normal [facility] ([place]) Comment on above: Result Comment: GFR Population [...] CLRP, NARP, BGRP, KRP, CARP #### [address] [address] GFR >60 Normal [facility] ([place]) Comment on above: Result Comment: GFR Population [...] CLRP, NARP, BGRP, KRP, CARP #### [address] [address] .MDWon 10-11-2021 Monocyte Distribution Width 19.02 Normal 0.00-20.00 [facility] ([place]) Comment on above: Result Comment: For ED adult patients suspected of sepsis, MDW<=20.0 does not rule out sepsis or risk of sepsis Performed By: #### H CTRP, HGBRP, GLURP, CLRP, NARP, BGRP, KRP, CARP #### [address] [address] .NEUABSon 10-11-2021 Neutrophil, Absolute 8.4 10 3/mcL High 2.3-8.1 [facility] ([place]) Comment on above: Performed By: #### H CTRP, HGBRP, GLURP, CLRP, NARP, BGRP, KRP, CARP #### [place] [address] CBCon 10-11-2021 Erythrocyte distribution width (RBC) [Ratio] 13.6 % Normal 11.5-15.5 [facility] ([place]) Comment on above: Performed By: #### H CTRP, HGBRP, GLURP, CLRP, NARP, BGRP, KRP, CARP #### [place] [address] Hematocrit (Bld) [Volume fraction] 41.1 % Normal 34.0-46.0 [facility] ([place]) Comment on above: Performed By: #### H CTRP, HGBRP, GLURP, CLRP, NARP, BGRP, KRP, CARP #### [place] [phone] Hgb 13.4 G/dL Normal 12.0-16.0 [facility] ([place]) Comment on above: Performed By: #### H CTRP, HGBRP, GLURP, CLRP, NARP, BGRP, KRP, CARP #### [place] [phone] MCH (RBC) [Entitic mass] 29.5 pg Normal 27.0-33.0 [facility] ([place]) Comment on above: Performed By: #### H CTRP, HGBRP, GLURP, CLRP, NARP, BGRP, KRP, CARP #### [address] [address] MCHC 32.7 G/dL Normal 32.0-36.0 [facility] ([place]) Comment on above: Performed By: #### H CTRP, HGBRP, GLURP, CLRP, NARP, BGRP, KRP, CARP #### [address] [address] MCV (RBC) [Entitic vol] 90.1 fL Normal 80.0-99.0 [facility] ([place]) Comment on above: Performed By: #### H CTRP, HGBRP, GLURP, CLRP, NARP, BGRP, KRP, CARP #### [place] [id number] Platelet 291 10 3/mcL Normal 150-450 [facility] ([place]) Comment on above: Performed By: #### H CTRP, HGBRP, GLURP, CLRP, NARP, BGRP, KRP, CARP #### [place] [phone] Platelet mean volume (Bld) [Entitic vol] 8.4 fL Normal 6.6-10.5 [facility] ([place]) Comment on above: Performed By: #### H CTRP, HGBRP, GLURP, CLRP, NARP, BGRP, KRP, CARP #### [place] [address] RBC 4.56 10 6/mcL Normal 4.10-5.30 [facility] ([place]) Comment on above: Performed By: #### H CTRP, HGBRP, GLURP, CLRP, NARP, BGRP, KRP, CARP #### [place] [phone] WBC 12.5 10 3/mcL High 4.5-10.8 [facility] ([place]) Comment on above: Performed By: #### H CTRP, HGBRP, GLURP, CLRP, NARP, BGRP, KRP, CARP #### [address] [address] CMPon 10-11-2021 Albumin Level 3.6 G/dL Normal 3.2-4.8 [facility] ([place]) Comment on above: Performed By: #### H CTRP, HGBRP, GLURP, CLRP, NARP, BGRP, KRP, CARP #### [address] [address] Albumin/Globulin [Mass ratio] 1.0 {ratio} Normal 0.9-1.6 [facility] ([place]) Comment on above: Performed By: #### H CTRP, HGBRP, GLURP, CLRP, NARP, BGRP, KRP, CARP #### [address] [address] ALP [Catalytic activity/Vol] 111 U/L Normal 38-126 [facility] ([place]) Comment on above: Performed By: #### H CTRP, HGBRP, GLURP, CLRP, NARP, BGRP, KRP, CARP #### [address] [address] ALT [Catalytic activity/Vol] 22 U/L Normal 10-49 [facility] ([place]) Comment on above: Performed By: #### H CTRP, HGBRP, GLURP, CLRP, NARP, BGRP, KRP, CARP #### [address] [address] AST [Catalytic activity/Vol] 28 U/L Normal 8-34 [facility] ([place]) Comment on above: Performed By: #### H CTRP, HGBRP, GLURP, CLRP, NARP, BGRP, KRP, CARP #### [address] [address] Bili Total 0.40 mg/dL Normal 0.20-1.20 [facility] ([place]) Comment on above: Result Comment: Use of this assay is not recommended for patients undergoing treatment with eltrombopag due to the potential for falsely elevated results. Performed By: #### H CTRP, HGBRP, GLURP, CLRP, NARP, BGRP, KRP, CARP #### [address] [address] BUN/Creatinine Ratio 22.1 ratio High 10.0-22.0 [facility] ([place]) Comment on above: Performed By: #### H CTRP, HGBRP, GLURP, CLRP, NARP, BGRP, KRP, CARP #### [address] [address] Calcium [Mass/Vol] 9.5 mg/dL Normal 8.7-10.4 [facility] ([place]) Comment on above: Performed By: #### H CTRP, HGBRP, GLURP, CLRP, NARP, BGRP, KRP, CARP #### [address] [address] Chloride [Moles/Vol] 104 mmol/L Normal 98-110 [facility] ([place]) Comment on above: Performed By: #### H CTRP, HGBRP, GLURP, CLRP, NARP, BGRP, KRP, CARP #### [address] [address] CO2 [Moles/Vol] 28 mmol/L Normal 22-32 [facility] ([place]) Comment on above: Performed By: #### H CTRP, HGBRP, GLURP, CLRP, NARP, BGRP, KRP, CARP #### [address] [address] Creatinine [Mass/Vol] 0.68 mg/dL Normal 0.50-1.20 [facility] ([place]) Comment on above: Performed By: #### H CTRP, HGBRP, GLURP, CLRP, NARP, BGRP, KRP, CARP #### [address] [address] Electrolyte Balance 4.0 mEq/L Normal 4.0-15.0 [facility] ([place]) Comment on above: Performed By: #### H CTRP, HGBRP, GLURP, CLRP, NARP, BGRP, KRP, CARP #### [address] [address] Globulin 3.6 G/dL Normal 1.5-3.8 [facility] ([place]) Comment on above: Performed By: #### H CTRP, HGBRP, GLURP, CLRP, NARP, BGRP, KRP, CARP #### [address] [address] Glucose [Mass/Vol] 178 mg/dL High 82-115 [facility] ([place]) Comment on above: Performed By: #### H CTRP, HGBRP, GLURP, CLRP, NARP, BGRP, KRP, CARP #### [address] [address] Potassium [Moles/Vol] 4.0 mmol/L Normal 3.5-5.0 [facility] ([place]) Comment on above: Performed By: #### H CTRP, HGBRP, GLURP, CLRP, NARP, BGRP, KRP, CARP #### [address] [address] Sodium [Moles/Vol] 136 mmol/L Normal 136-145 [facility] ([place]) Comment on above: Performed By: #### H CTRP, HGBRP, GLURP, CLRP, NARP, BGRP, KRP, CARP #### [address] [address] Total Protein 7.2 G/dL Normal 5.7-8.2 [facility] ([place]) Comment on above: Result Comment: No te - New Reference Range in effect 19 Performed By: #### H CTRP, HGBRP, GLURP, CLRP, NARP, BGRP, KRP, CARP #### [address] [address] Urea nitrogen [Mass/Vol] 15.0 mg/dL Normal 8.0-22.0 [facility] ([place]) Comment on above: Performed By: #### H CTRP, HGBRP, GLURP, CLRP, NARP, BGRP, KRP, CARP #### [address] [address] PBNPon 10-11-2021 Natriuretic peptide B (Bld) [Mass/Vol] 123 pg/mL Normal 0-900 [facility] ([place]) Comment on above: Result Comment: NT-p roBNP results of less than 300 pg/mL effectively rules out acute congestive heart failure with 99% negative predictive value. Performed By: #### H CTRP, HGBRP, GLURP, CLRP, NARP, BGRP, KRP, CARP #### [address] [address] TROPHSon 10-11-2021 Troponin I High Sensitivity 7.31 ng/L Normal 0.00-34.00 [facility] ([place]) Comment on above: Result Comment: If t he High Sensitive Troponin result is below the 99th percentile value (<45 ng/L) at the first blood draw, at least two additional blood samples should be drawn before results are interpreted as negative for AMI. Performed By: #### H CTRP, HGBRP, GLURP, CLRP, NARP, BGRP, KRP, CARP #### [place] [phone] XR CHEST 1 VIEWon 10-11-2021 XR CHEST [...] ANTWAN Mercado [facility] ([place]) Absolute lymphocyte counton 09-08-2021 Lymphocytes Auto (Unsp spec) [#/Vol] 2.25 10*3/uL 0.83-4.51 [facility] Work Phone: Basophil percentageon 2021 Basophils/100 WBC (Bld) 0.6 % 0-1 [facility] Work Phone: Bilirubin [Mass/Vol] 0.50 mg/dL 0.20-1.00 [facility] Work Phone: Comment on above: For patients on eltr ombopag therapy, use of [place] TBIL is not recommended. Chloride [Moles/Vol] 102 mmol/L 98-107 [facility] Work Phone: Eosinophils/100 WBC (Bld) 2.6 % 0-5 [facility] Work Phone: Glucose [Mass/Vol] 287 mg/dL 74-106 [facility] Work Phone: Comment on above: Glucose result great er than or equal to 200 mg/dLsuggests DIABETES MELLITUS per A.D.A. criteria. Neutrophils (Bld) [#/Vol] 10.8 10*3/uL 2.0-7.7 [facility] Work Phone: Neutrophils/100 WBC (Bld) 74.7 % 47-70 [facility] Work Phone: Potassium [Moles/Vol] 4.2 mmol/L 3.5-5.1 [facility] Work Phone: Protein [Mass/Vol] 7.2 g/dL 6.4-8.2 [facility] Work Phone: Sodium [Moles/Vol] 137 mmol/L 136-145 [facility] Work Phone: WBC (Bld) [#/Vol] 14.4 10*3/uL 4.4-11.0 [facility] Work Phone: Blood erythrocytes count (nu mber/volume)on 09-08-2021 RBC (Bld) [#/Vol] 4.53 10*6/uL 4.2-5.4 [facility] Work Phone: [phone] Blood hemoglobin measurement (mass/volume)on 09-08-2021 Hemoglobin (Bld) [Mass/Vol] 13.5 g/dL 12.0-15.0 [facility] Work Phone: [phone] Blood lymphocytes/100 leukoc yteson 09-08-2021 Lymphocytes/100 WBC (Bld) 15.6 % 19-41 [facility] Work Phone: [phone] Blood monocytes/100 leukocyt eson 09-08-2021 Monocytes/100 WBC (Bld) 5.8 % 0-10 [facility] Work Phone: [phone] Blood platelet mean volumeon 09-08-2021 Platelet mean volume (Bld) [Entitic vol] 10.7 fL 6.2-12.0 [facility] Work Phone: [phone] Determination of erythrocyte mean corpuscular volume (MCV)on 09-08-2021 MCV (RBC) [Entitic vol] 92.5 fL 81-99 [facility] Work Phone: [phone] Hematocrit Auto (Bld) [Volum e fraction]on 09-08-2021 Hematocrit (Bld) [Volume fraction] 41.9 % 37-47 [facility] Work Phone: [phone] Laboratory - Chemistry and C hemistry - challengeon 09-08-2021 ALP [Catalytic activity/Vol] 96 U/L 45-117 [facility] Work Phone: [phone] ALT [Catalytic activity/Vol] 28 U/L 13-56 [facility] Work Phone: [phone] CO2 [Moles/Vol] 28.0 mmol/L 21.0-32.0 [facility] Work Phone: [phone] Globulin (S) [Mass/Vol] 3.9 g/dL 2.2-4.2 [facility] Work Phone: [phone] Urea nitrogen/Creatinine [Mass ratio] 18.7 mg/mg 10-20 [facility] Work Phone: [phone] Laboratory - Hematology and Cell countson 09-08-2021 Erythrocyte distribution width (RBC) [Entitic vol] 43.7 fL 35.1-43.9 [facility] Work Phone: [phone] Erythrocyte distribution width (RBC) [Ratio] 12.9 % 11.6-14.6 [facility] Work Phone: [phone] Immature granulocytes/100 WBC (Bld) 0.700 % 0.0-0.9 [facility] Work Phone: [phone] Comment on above: IG% - Immature Granu locytes (promyelocytes, myelocytes and metamyelocytes) > 1% indicates that a LEFT SHIFT is Present. MCH (RBC) [Entitic mass] 29.8 pg 27.0-32.0 [facility] Work Phone: [phone] Nucleated RBC/100 WBC (Bld) [Ratio] 0 % 0-5 [facility] Work Phone: [phone] MCHC Auto (RBC) [Mass/Vol]on 09-08-2021 MCHC (RBC) [Mass/Vol] 32.2 g/dL 32-36 [facility] Work Phone: No Panel Informationon 09-08 Estimated Creatinine Clearance Calc 43.74 ml/min [facility] Work Phone: [phone] Estimated GFR (MDRD) Amer 74 mL/min >60 [facility] Work Phone: [phone] Comment on above: GFR Calc Estimated GFR (MDRD) Non-Af Amer 61 mL/min >60 [facility] Work Phone: [phone] Comment on above: Non- GFR Calc Platelets bldon 09-08-2021 Platelets (Bld) [#/Vol] 267 10*3/uL 150-450 [facility] Work Phone: [phone] Serum or plasma albumin betsy urement (mass/volume)on 09-08-2021 Albumin [Mass/Vol] 3.3 g/dL 3.2-5.0 [facility] Work Phone: Serum or plasma albumin/glob ulin mass ratioon 09-08-2021 Albumin/Globulin [Mass ratio] 0.8 {ratio} 0.9-2.4 [facility] Work Phone: Serum or plasma calcium betsy urement (mass/volume)on 09-08-2021 Calcium [Mass/Vol] 9.1 mg/dL 8.5-10.1 [facility] Work Phone: [phone] Serum or plasma creatinine m easurement (mass/volume)on 09-08-2021 Creatinine [Mass/Vol] 0.96 mg/dL 0.55-1.02 [facility] Work Phone: Comment on above: The validity of the calculated GFR & GFRAA in patients over 70 years has not been determined. Clinical correlation is essential. Serum or plasma urea nitroge n measurement (mass/volume)on 09-08-2021 Urea nitrogen [Mass/Vol] 18 mg/dL 7-18 [facility] Work Phone: Thin prep Papanicolaou smear with manual screeningon 09-08-2021 Thin prep Papanicolaou smear with manual screening 20 U/L 15-37 [facility] Work Phone: Thin prep Papanicolaou smear with manual screening 7 5-15 [facility] Work Phone: Glucose Glucometer (BldC) [M ass/Vol]on 09-05-2021 Glucose [Mass/Vol] 201 mg/dL 74-106 [facility] Work Phone: Comment on above: MANAGEMENT OF PATIEN T CARE PER NURSING PROTOCOL Basophil percentageon 2021 Chloride [Moles/Vol] 103 mmol/L 98-107 [facility] Work Phone: [phone] Glucose [Mass/Vol] 160 mg/dL 74-106 [facility] Work Phone: [phone] Comment on above: Fasting Glucose resu lt greater than or equal to 126 mg/dL suggests DIABETES MELLITUS per A.D.A. criteria. Potassium [Moles/Vol] 4.0 mmol/L 3.5-5.1 [place] [facility] Work Phone: Sodium [Moles/Vol] 136 mmol/L 136-[facility] Work Phone: WBC (Bld) [#/Vol] 12.7 10*3/uL 4.4-11.0 [facility] Work Phone: Blood erythrocytes count (nu mber/volume)on 08-28-2021 RBC (Bld) [#/Vol] 4.62 10*6/uL 4.2-5.4 [facility] Work Phone: Blood hemoglobin measurement (mass/volume)on 08-28-2021 Hemoglobin (Bld) [Mass/Vol] 13.7 g/dL 12.0-15.0 [facility] Work Phone: Blood platelet mean volumeon 08-28-2021 Platelet mean volume (Bld) [Entitic vol] 10.9 fL 6.2-12.0 [facility] Work Phone: Determination of erythrocyte mean corpuscular volume (MCV)on 08-28-2021 MCV (RBC) [Entitic vol] 92.0 fL 81-99 [facility] Work Phone: Hematocrit Auto (Bld) [Volum e fraction]on 08-28-2021 Hematocrit (Bld) [Volume fraction] 42.5 % 37-47 [facility] Work Phone: INR in Blood by Coagulation assayon 08-28-2021 INR Coag (Bld) [Relative time] 1.0 {INR} [facility] Work Phone: Laboratory - Chemistry and C hemistry - challengeon 08-28-2021 CO2 [Moles/Vol] 28.0 mmol/L 21.0-32.0 [facility] Work Phone: Urea nitrogen/Creatinine [Mass ratio] 23.6 mg/mg 10-20 [facility] Work Phone: Laboratory - Coagulationon 0 08-28-2021 aPTT Coag (Bld) [Time] 25.4 s 24.1-36.2 petra [facility] Work Phone: PT Coag (PPP) [Time] 13.0 s 11.7-14.9 os [facility] Work Phone: Laboratory - Hematology and Cell countson 08-28-2021 Erythrocyte distribution width (RBC) [Entitic vol] 43.4 fL 35.1-43.9 [facility] Work Phone: [phone] Erythrocyte distribution width (RBC) [Ratio] 12.9 % 11.6-14.6 [facility] Work Phone: [phone] MCH (RBC) [Entitic mass] 29.7 pg 27.0-32.0 [facility] Work Phone: [phone] MCHC Auto (RBC) [Mass/Vol]on 08-28-2021 MCHC (RBC) [Mass/Vol] 32.2 g/dL 32-36 [facility] Work Phone: No Panel Informationon 08-28 Estimated GFR (MDRD) Amer 91 mL/min >60 [facility] Work Phone: Comment on above: GFR Calc Estimated GFR (MDRD) Non-Af Amer 75 mL/min >60 [facility] Work Phone: Comment on above: Non- GFR Calc Platelets bldon 08-28-2021 Platelets (Bld) [#/Vol] 299 10*3/uL 150-450 [facility] Work Phone: [phone] Serum or plasma calcium betsy urement (mass/volume)on 08-28-2021 Calcium [Mass/Vol] 9.1 mg/dL 8.5-10.1 [facility] Work Phone: Serum or plasma creatinine m easurement (mass/volume)on 08-28-2021 Creatinine [Mass/Vol] 0.80 mg/dL 0.55-1.02 [facility] Work Phone: Comment on above: The validity of the calculated GFR & GFRAA in patients over 70 years has not been determined. Clinical correlation is essential. Serum or plasma urea nitroge n measurement (mass/volume)on 08-28-2021 Urea nitrogen [Mass/Vol] 19 mg/dL 7-18 [facility] Work Phone: Thin prep Papanicolaou smear with manual screeningon 08-28-2021 Thin prep Papanicolaou smear with manual screening 5 5-15 [facility] Work Phone: Absolute lymphocyte counton 06-07-2021 Lymphocytes Auto (Unsp spec) [#/Vol] 2.40 10*3/uL 0.83-4.51 [facility] Work Phone: Basophil percentageon 2021 Basophil percentage 0 SEEN /hpf 0-5 [facility] Work Phone: Basophils/100 WBC (Bld) 0.8 % 0-1 [facility] Work Phone: Bilirubin [Mass/Vol] 0.40 mg/dL 0.20-1.00 [facility] Work Phone: Comment on above: For patients on eltr ombopag therapy, use of [place] [place] TBIL is not recommended. Chloride [Moles/Vol] 101 mmol/L 98-107 [facility] Work Phone: Cholesterol [Mass/Vol] 160 mg/dL <200 [facility] Work Phone: Comment on above: <200 mg/dL Desirable 200-240 mg/dL Borderline >240 mg/dL High Risk Eosinophils/100 WBC (Bld) 2.4 % 0-5 [facility] Work Phone: Glucose [Mass/Vol] 232 mg/dL 74-106 [facility] Work Phone: Comment on above: Glucose result great er than or equal to 200 mg/dLsuggests DIABETES MELLITUS per A.D.A. criteria. Neutrophils (Bld) [#/Vol] 8.1 10*3/uL 2.0-7.7 [facility] Work Phone: Neutrophils/100 WBC (Bld) 68.3 % 47-70 [facility] Work Phone: [phone] Potassium [Moles/Vol] 4.3 mmol/L 3.5-5.1 [facility] Work Phone: [phone] Protein [Mass/Vol] 7.8 g/dL 6.4-8.2 [facility] Work Phone: [phone] Sodium [Moles/Vol] 134 mmol/L 136-145 [facility] Work Phone: [phone] Triglyceride [Mass/Vol] 186 mg/dL <199 [facility] Work Phone: [phone] Comment on above: The drugs N-Acetylcy steine and Metamizole may falsely depress this assay.Serum Triglycerides Reference Interval Normal <150 mg/dL Borderline high 150 - 199 mg/dL High 200 - 499 mg/dL Very High > or = 500 mg/dL WBC (Bld) [#/Vol] 11.9 10*3/uL 4.4-11.0 [facility] Work Phone: Bilirubin Test strip Ql (U)o n 06-07-2021 Bilirubin Ql (U) Negative Negative [facility] Work Phone: Blood erythrocytes count (nu mber/volume)on 06-07-2021 RBC (Bld) [#/Vol] 4.69 10*6/uL 4.2-5.4 [facility] Work Phone: [phone] Blood hemoglobin measurement (mass/volume)on 06-07-2021 Hemoglobin (Bld) [Mass/Vol] 13.9 g/dL 12.0-15.0 [facility] Work Phone: Blood lymphocytes/100 leukoc yteson 06-07-2021 Lymphocytes/100 WBC (Bld) 20.2 % 19-41 [facility] Work Phone: [phone] Blood monocytes/100 leukocyt eson 06-07-2021 Monocytes/100 WBC (Bld) 7.0 % 0-10 [facility] Work Phone: [phone] Blood platelet mean volumeon 06-07-2021 Platelet mean volume (Bld) [Entitic vol] 11.0 fL 6.2-12.0 [facility] Work Phone: [phone] Determination of erythrocyte mean corpuscular volume (MCV)on 06-07-2021 MCV (RBC) [Entitic vol] 93.4 fL 81-99 [facility] Work Phone: [phone] Hematocrit Auto (Bld) [Volum e fraction]on 06-07-2021 Hematocrit (Bld) [Volume fraction] 43.8 % 37-47 [facility] Work Phone: [phone] Ketones Test strip Ql (U)on 06-07-2021 Ketones Ql (U) Negative Negative [facility] Work Phone: Laboratory - Chemistry and C hemistry - challengeon 06-07-2021 ALP [Catalytic activity/Vol] 122 U/L 45-117 [facility] Work Phone: [phone] ALT [Catalytic activity/Vol] 33 U/L 13-56 [facility] Work Phone: [phone] CO2 [Moles/Vol] 27.0 mmol/L 21.0-32.0 [facility] Work Phone: Free T4 [Mass/Vol] 0.79 ng/dL 0.76-1.46 [facility] Work Phone: [phone] Globulin (S) [Mass/Vol] 4.2 g/dL 2.2-4.2 [facility] Work Phone: [phone] Magnesium [Mass/Vol] 2.1 mg/dL 1.6-2.6 [facility] Work Phone: [phone] Urea nitrogen/Creatinine [Mass ratio] 21.3 mg/mg 10-20 [facility] Work Phone: [phone] Laboratory - Hematology and Cell countson 06-07-2021 Erythrocyte distribution width (RBC) [Entitic vol] 45.1 fL 35.1-43.9 [facility] Work Phone: [phone] Erythrocyte distribution width (RBC) [Ratio] 13.2 % 11.6-14.6 [facility] Work Phone: [phone] Immature granulocytes/100 WBC (Bld) 1.300 % 0.0-0.9 [facility] Work Phone: [phone] Comment on above: IG% - Immature Granu locytes (promyelocytes, myelocytes and metamyelocytes) > 1% indicates that a LEFT SHIFT is Present. MCH (RBC) [Entitic mass] 29.6 pg 27.0-32.0 [facility] Work Phone: [phone] Nucleated RBC/100 WBC (Bld) [Ratio] 0 % 0-5 [facility] Work Phone: [phone] HbA1c (Bld) [Mass fraction] 8.4 % 4.2-6.3 [facility] Work Phone: [phone] MCHC Auto (RBC) [Mass/Vol]on 06-07-2021 MCHC (RBC) [Mass/Vol] 31.7 g/dL 32-36 [facility] Work Phone: [phone] Mucus LM Ql (Urine sed)on Mucus Ql (Urine sed) 0 SEEN /hpf [facility] Work Phone: [phone] Nitrite Test strip Ql (U)on 06-07-2021 Nitrite Ql (U) Negative Negative [facility] Work Phone: [phone] No Panel Informationon 06-07 Estimated GFR (MDRD) Amer 76 mL/min >60 [facility] Work Phone: [phone] Comment on above: GFR Calc Estimated GFR (MDRD) Non-Af Amer 63 mL/min >60 [facility] Work Phone: [phone] Comment on above: Non- GFR Calc Free Triiodothyronine (T3) pg/dL 2.8 pg/mL 2.18-3.98 [facility] Work Phone: [phone] Thyroid Stimulating Hormone (TSH) 10.30 uIU/mL 0.358-3.74 [facility] Work Phone: [phone] Vitamin D 25-Hydroxy 18.1 ng/mL [facility] Work Phone: Comment on above: Vitamin D 25(OH) Sta tus Range Deficiency <20 ng/mL (50nmol/L) Insufficiency 20 - 30 ng/mL (50 - 75 nmol/L) Sufficiency 30 - 100 ng/mL (75 - 250 nmol/L) Toxicity >100 ng/mL (>250 nmol/L) Platelets bldon 06-07-2021 Platelets (Bld) [#/Vol] 332 10*3/uL 150-450 [facility] Work Phone: Protein Test strip Ql (U)on 06-07-2021 Protein Ql (U) Negative Negative [facility] Work Phone: Serum or plasma albumin betsy urement (mass/volume)on 06-07-2021 Albumin [Mass/Vol] 3.6 g/dL 3.2-5.0 [facility] Work Phone: Serum or plasma albumin/glob ulin mass ratioon 06-07-2021 Albumin/Globulin [Mass ratio] 0.9 {ratio} 0.9-2.4 [facility] Work Phone: Serum or plasma calcium betsy urement (mass/volume)on 06-07-2021 Calcium [Mass/Vol] 9.8 mg/dL 8.5-10.1 [facility] Work Phone: Serum or plasma cholesterol in HDL measurement (mass/volume)on 06-07-2021 Cholesterol in HDL [Mass/Vol] 51 mg/dL >40 [facility] Work Phone: Comment on above: The drugs N-Acetylcy steine and Metamizole may falsely depress this assay. Reference Range HDL <40 mg/dL Low HDL Cholesterol HDL >or= 60 mg/dL High HDL Cholesterol Serum or plasma cholesterol in VLDL measurement (mass/volume)on 06-07-2021 Cholesterol in VLDL [Mass/Vol] 37 mg/dL 5-40 [facility] Work Phone: [phone] Serum or plasma creatinine m easurement (mass/volume)on 06-07-2021 Creatinine [Mass/Vol] 0.94 mg/dL 0.55-1.02 [facility] Work Phone: Comment on above: The validity of the calculated GFR & GFRAA in patients over 70 years has not been determined. Clinical correlation is essential. Serum or plasma low density lipoprotein (LDL) cholesterol measurement (mass/volume)on 06-07-2021 Cholesterol in LDL [Mass/Vol] 72 mg/dL 0-130 [facility] Work Phone: Serum or plasma urea nitroge n measurement (mass/volume)on 06-07-2021 Urea nitrogen [Mass/Vol] 20 mg/dL 7-18 [facility] Work Phone: Squamous epithelial cells de tection in urine sediment by light microscopyon 06-07-2021 Epithelial cells.squamous LM Ql (Urine sed) 0 SEEN /hpf 5-10 [facility] Work Phone: Thin prep Papanicolaou smear with manual screeningon 06-07-2021 Thin prep Papanicolaou smear with manual screening 23 U/L 15-37 [facility] Work Phone: Thin prep Papanicolaou smear with manual screening 6 5-15 [facility] Work Phone: Urine blood detectionon 05-17 RBC Ql (U) Negative Negative [facility] Work Phone: RBC Ql (U) 0 SEEN /hpf 0-5 [facility] Work Phone: Urine clarityon 06-07-2021 Clarity (U) Sl. Cloudy Clear [facility] Work Phone: Urine color determinationon 06-07-2021 Color (U) Yellow Yellow [facility] Work Phone: Urine creatinine measurement (mass/volume)on 06-07-2021 Creatinine (U) [Mass/Vol] 23.70 mg/dL NO RANGE EST. [facility] Work Phone: [phone] Urine glucose detectionon Glucose Ql (U) 250 mg/dl Normal [facility] Work Phone: [phone] Urine leukocyte esterase det ection by dipstickon 06-07-2021 Leukocyte esterase Test strip Ql (U) Negative Negative [facility] Work Phone: Urine pHon 06-07-2021 pH (U) 6.5 [pH] 5.0 - 8.0 [facility] Work Phone: Urine protein measurement (m ass/volume)on 06-07-2021 Protein (U) [Mass/Vol] 6.9 mg/dL 0.0-11.8 [facility] Work Phone: Urine protein/creatinine mas s ratioon 06-07-2021 Protein/Creatinine (U) [Mass ratio] 291 mg/g CRE 0-200 [facility] Work Phone: Urine sediment bacteria coun t by microscopy (number/high power field)on 06-07-2021 Bacteria LM.HPF (Urine sed) [#/Area] 0 /[HPF] None Seen [facility] Work Phone: Urine specific gravity measu rementon 06-07-2021 Specific gravity (U) [Rel density] 1.010 1.002-1.030 [facility] Work Phone: Urobilinogen Auto test strip Ql (U)on 06-07-2021 Urobilinogen Ql (U) Normal mg/dl Normal [facility] Work Phone: Absolute lymphocyte counton 04-25-2021 Lymphocytes Auto (Unsp spec) [#/Vol] 2.40 10*3/uL 0.83-4.51 [facility] Work Phone: Basophil percentageon 2021 Basophils/100 WBC (Bld) 0.7 % 0-1 [facility] Work Phone: Chloride [Moles/Vol] 101 mmol/L 98-107 [facility] Work Phone: Eosinophils/100 WBC (Bld) 1.8 % 0-5 [facility] Work Phone: Glucose [Mass/Vol] 284 mg/dL 74-106 [facility] Work Phone: Comment on above: Glucose result great er than or equal to 200 mg/dLsuggests DIABETES MELLITUS per A.D.A. criteria. Neutrophils (Bld) [#/Vol] 9.9 10*3/uL 2.0-7.7 [facility] Work Phone: [phone] Neutrophils/100 WBC (Bld) 72.3 % 47-70 [facility] Work Phone: [phone] Potassium [Moles/Vol] 4.4 mmol/L 3.5-5.1 [place] [facility] Work Phone: [phone] Sodium [Moles/Vol] 136 mmol/L 136-145 [facility] Work Phone: [phone] WBC (Bld) [#/Vol] 13.6 10*3/uL 4.4-11.0 [facility] Work Phone: [phone] Blood erythrocytes count (nu mber/volume)on 04-25-2021 RBC (Bld) [#/Vol] 4.88 10*6/uL 4.2-5.4 [facility] Work Phone: [phone] Blood hemoglobin measurement (mass/volume)on 04-25-2021 Hemoglobin (Bld) [Mass/Vol] 14.9 g/dL 12.0-15.0 [facility] Work Phone: [phone] Blood lymphocytes/100 leukoc yteson 04-25-2021 Lymphocytes/100 WBC (Bld) 17.6 % 19-41 [facility] Work Phone: [phone] Blood monocytes/100 leukocyt eson 04-25-2021 Monocytes/100 WBC (Bld) 6.2 % 0-10 [facility] Work Phone: [phone] Blood platelet mean volumeon 04-25-2021 Platelet mean volume (Bld) [Entitic vol] 10.8 fL 6.2-12.0 [facility] Work Phone: [phone] Determination of erythrocyte mean corpuscular volume (MCV)on 04-25-2021 MCV (RBC) [Entitic vol] 93.0 fL 81-99 [facility] Work Phone: [phone] Hematocrit Auto (Bld) [Volum e fraction]on 04-25-2021 Hematocrit (Bld) [Volume fraction] 45.4 % 37-47 [facility] Work Phone: [phone] Laboratory - Chemistry and C hemistry - challengeon 04-25-2021 CO2 [Moles/Vol] 29.0 mmol/L 21.0-32.0 [facility] Work Phone: [phone] Natriuretic peptide B (Bld) [Mass/Vol] 53.5 pg/mL 0-100 [facility] Work Phone: [phone] Urea nitrogen/Creatinine [Mass ratio] 18.0 mg/mg 10-20 [facility] Work Phone: [phone] Laboratory - Hematology and Cell countson 04-25-2021 Erythrocyte distribution width (RBC) [Entitic vol] 44.8 fL 35.1-43.9 [facility] Work Phone: [phone] Erythrocyte distribution width (RBC) [Ratio] 13.1 % 11.6-14.6 [facility] Work Phone: [phone] Immature granulocytes/100 WBC (Bld) 1.400 % 0.0-0.9 [facility] Work Phone: [phone] Comment on above: IG% - Immature Granu locytes (promyelocytes, myelocytes and metamyelocytes) > 1% indicates that a LEFT SHIFT is Present. MCH (RBC) [Entitic mass] 30.5 pg 27.0-32.0 [facility] Work Phone: [phone] Nucleated RBC/100 WBC (Bld) [Ratio] 0 % 0-5 [facility] Work Phone: [phone] MCHC Auto (RBC) [Mass/Vol]on 04-25-2021 MCHC (RBC) [Mass/Vol] 32.8 g/dL 32-36 [facility] Work Phone: [phone] No Panel Informationon 04-25 Estimated Creatinine Clearance Calc 44.67 ml/min [facility] Work Phone: [phone] Estimated GFR (MDRD) Amer 76 mL/min >60 [facility] Work Phone: Comment on above: GFR Calc Estimated GFR (MDRD) Non-Af Amer 63 mL/min >60 [facility] Work Phone: Comment on above: Non- GFR Calc Troponin I High Sensitivity 12 pg/mL 3.0-54.0 [facility] Work Phone: Comment on above: Please Note: New Deidre t Units and Gender Specific Reference Ranges. For more information see Policy Stat Procedure [facility] High Sensitivity Troponin (TNIH) and attachments. Platelets bldon 04-25-2021 Platelets (Bld) [#/Vol] 336 10*3/uL 150-450 [facility] Work Phone: Serum or plasma calcium betsy urement (mass/volume)on 04-25-2021 Calcium [Mass/Vol] 9.0 mg/dL 8.5-10.1 [facility] Work Phone: Serum or plasma creatinine m easurement (mass/volume)on 04-25-2021 Creatinine [Mass/Vol] 0.94 mg/dL 0.55-1.02 [facility] Work Phone: Comment on above: The validity of the calculated GFR & GFRAA in patients over 70 years has not been determined. Clinical correlation is essential. Serum or plasma urea nitroge n measurement (mass/volume)on 04-25-2021 Urea nitrogen [Mass/Vol] 17 mg/dL 7-18 [facility] Work Phone: Thin prep Papanicolaou smear with manual screeningon 04-25-2021 Thin prep Papanicolaou smear with manual screening 6 5-15 [facility] Work Phone: [place] [facility] Note on 09-15-2016 [facility] Note Normal [facility] Patient Summary Documentson 09-15-2016 Patient Summary Documents Normal [facility] Vital Signs Date Time Vital Sign Value Performing Clinician Facility 09-07-2024 03:16-0400 Body temperature 98.3 [degF] Dr. Harish Noel MD Work Phone: [facility] 09-07-2024 03:16-0400 Diastolic blood pressure 88 mm[Hg] Dr. Harish Noel MD Work Phone: [facility] 09-07-2024 03:16-0400 Heart rate 77 /min Dr. Harish Noel MD Work Phone: [facility] 09-07-2024 03:16-0400 Respiratory rate 14 /min Dr. Harish Noel MD Work Phone: [facility] 09-07-2024 03:16-0400 SaO2% (BldA) [Mass fraction] 93 % Dr. Harish Noel MD Work Phone: [facility] 09-07-2024 03:16-0400 Systolic blood pressure 147 mm[Hg] Dr. Hairsh Noel MD Work Phone: [facility] 09-07-2024 00:11-0400 Body height 157.[address] Harish Noel MD Work Phone: [facility] 07-02-2024 13:00-0400 Body height 157.[address] Harish Noel MD Work Phone: [facility] 07-02-2024 13:00-0400 Body mass index (BMI) [Ratio] 41.7 kg/m2 Dr. Harish Noel MD Work Phone: [facility] 07-02-2024 13:00-0400 Body temperature 98.9 [degF] Dr. Harish Noel MD Work Phone: [facility] 07-02-2024 13:00-0400 Body weight 103.[address] Harish Noel MD Work Phone: [facility] 07-02-2024 13:00-0400 Diastolic blood pressure 70 mm[Hg] Dr. Harish Noel MD Work Phone: [facility] 07-02-2024 13:00-0400 Heart rate 66 /min Dr. Harish Noel MD Work Phone: [facility] 07-02-2024 13:00-0400 Respiratory rate 16 /min Dr. Harish Noel MD Work Phone: [facility] 07-02-2024 13:00-0400 SaO2% (BldA) [Mass fraction] 90 % Dr. Harish Noel MD Work Phone: [facility] 07-02-2024 13:00-0400 Systolic blood pressure 150 mm[Hg] Dr. Harish Noel MD Work Phone: [facility] 04-30-2024 14:50-0500 Body temperature 97.8 [degF] Dr. Harish Noel MD Work Phone: [facility] 04-30-2024 14:50-0500 Diastolic blood pressure 72 mm[Hg] Dr. Harish Noel MD Work Phone: [facility] 04-30-2024 14:50-0500 Heart rate 83 /min Dr. Harish Noel MD Work Phone: [facility] 04-30-2024 14:50-0500 Respiratory rate 16 /min Dr. Harish Noel MD Work Phone: [facility] 04-30-2024 14:50-0500 SaO2% (BldA) [Mass fraction] 96 % Dr. Harish Noel MD Work Phone: [facility] 04-30-2024 14:50-0500 Systolic blood pressure 138 mm[Hg] Dr. Harish Noel MD Work Phone: [facility] 04-30-2024 13:49-0500 Body weight 100.[address] Harish Noel MD Work Phone: [facility] 04-30-2024 01:16-0500 Body mass index (BMI) [Ratio] 40.6 kg/m2 Dr. Harish Noel MD Work Phone: [facility] 07-28-2022 12:49-0400 Body height 157.[address] Harish Noel Work Phone: [facility] 07-28-2022 12:49-0400 Body mass index (BMI) [Ratio] 40.6 kg/m2 Dr. Harish Noel Work Phone: [facility] 07-28-2022 12:49-0400 Body temperature 97.2 [degF] Dr. Harish Noel Work Phone: [facility] 07-28-2022 12:49-0400 Body weight 100.[address] Harish Noel Work Phone: [facility] 07-28-2022 12:49-0400 Diastolic blood pressure 69 mm[Hg] Dr. Harish Noel Work Phone: [facility] 07-28-2022 12:49-0400 Heart rate 78 /min Dr. Harish Noel Work Phone: [facility] 07-28-2022 12:49-0400 Respiratory rate 22 /min Dr. Harish Noel Work Phone: [facility] 07-28-2022 12:49-0400 SaO2% (BldA) [Mass fraction] 97 % Dr. Harish Noel Work Phone: [facility] 07-28-2022 12:49-0400 Systolic blood pressure 148 mm[Hg] Dr. Harish Noel Work Phone: [facility] 05-16-2022 13:10-0500 Body temperature 97.3 [degF] Dr. Harish Noel Work Phone: [facility] 05-16-2022 13:10-0500 Body weight 101.[address] Harish Neol Work Phone: [facility] 05-16-2022 13:10-0500 Diastolic blood pressure 72 mm[Hg] Dr. Harish Noel Work Phone: [facility] 05-16-2022 13:10-0500 Heart rate 88 /min Dr. Harish Noel Work Phone: [facility] 05-16-2022 13:10-0500 Respiratory rate 16 /min Dr. Harish Noel Work Phone: [facility] 05-16-2022 13:10-0500 SaO2% (BldA) [Mass fraction] 92 % Dr. Harish Noel Work Phone: [facility] 05-16-2022 13:10-0500 Systolic blood pressure 115 mm[Hg] Dr. Harish Noel Work Phone: [facility] 04-11-2022 14:31-0500 Body height 157.[address] Harish Noel Work Phone: [facility] 04-11-2022 14:31-0500 Body mass index (BMI) [Ratio] 40.6 kg/m2 Dr. Harish Noel Work Phone: [facility] 04-11-2022 14:31-0500 Body weight 100.[address] Harish Noel Work Phone: [facility] 04-11-2022 14:31-0500 Diastolic blood pressure 93 mm[Hg] Dr. Harish Noel Work Phone: [facility] 04-11-2022 14:31-0500 Heart rate 80 /min Dr. Harish Noel Work Phone: [facility] 04-11-2022 14:31-0500 Respiratory rate 18 /min Dr. Harish Noel Work Phone: [facility] 04-11-2022 14:31-0500 SaO2% (BldA) [Mass fraction] 93 % Dr. Harish Noel Work Phone: [facility] 04-11-2022 14:31-0500 Systolic blood pressure 151 mm[Hg] Dr. Harish Noel Work Phone: [facility] 01-21-2022 19:56-0500 Diastolic blood pressure 60 mm[Hg] Dr. Harish Noel Work Phone: [facility] Work Phone: 01-21-2022 19:56-0500 Heart rate 74 /min Dr. Harish Noel Work Phone: [facility] Work Phone: 01-21-2022 19:56-0500 Respiratory rate 17 /min Dr. Harish Noel Work Phone: [facility] Work Phone: 01-21-2022 19:56-0500 SaO2% (BldA) [Mass fraction] 97 % Dr. Harish Noel Work Phone: [facility] Work Phone: 01-21-2022 19:56-0500 Systolic blood pressure 162 mm[Hg] Dr. Harish Noel Work Phone: [facility] Work Phone: 01-21-2022 15:54-0500 Body height 157.[address] Harish Noel Work Phone: [facility] Work Phone: 01-21-2022 15:54-0500 Body mass index (BMI) [Ratio] 42.4 kg/m2 Dr. Harish Noel Work Phone: [facility] Work Phone: 01-21-2022 15:54-0500 Body temperature 97.4 [degF] Dr. Harish Noel Work Phone: [facility] Work Phone: 01-21-2022 15:54-0500 Body weight 105.[address] Harish Noel Work Phone: [facility] Work Phone: 01-11-2022 15:21-0400 Body height 157.[address] Harish Noel Work Phone: [facility] Work Phone: 01-11-2022 15:21-0400 Body mass index (BMI) [Ratio] 40.9 kg/m2 Dr. Harish Noel Work Phone: [facility] Work Phone: 01-11-2022 15:21-0400 Body weight 101.[address] Harish Noel Work Phone: [facility] Work Phone: 01-11-2022 15:21-0400 Diastolic blood pressure 68 mm[Hg] Dr. Harish Noel Work Phone: [facility] Work Phone: 01-11-2022 15:21-0400 Heart rate 71 /min Dr. Harish Noel Work Phone: [facility] Work Phone: 01-11-2022 15:21-0400 Respiratory rate 18 /min Dr. Harish Noel Work Phone: [facility] Work Phone: 01-11-2022 15:21-0400 Systolic blood pressure 134 mm[Hg] Dr. Harish Noel Work Phone: [facility] Work Phone: 01-08-2022 14:16-0400 Body temperature 98.1 [degF] Dr. Harish Noel Work Phone: [facility] Work Phone: 01-08-2022 14:16-0400 Body weight 100.[address] Harish Noel Work Phone: [facility] Work Phone: 01-08-2022 14:16-0400 Diastolic blood pressure 84 mm[Hg] Dr. Harish Noel Work Phone: [facility] Work Phone: 01-08-2022 14:16-0400 Heart rate 84 /min Dr. Harish oNel Work Phone: [facility] Work Phone: 01-08-2022 14:16-0400 Respiratory rate 18 /min Dr. Harish Noel Work Phone: [facility] Work Phone: 01-08-2022 14:16-0400 SaO2% (BldA) [Mass fraction] 92 % Dr. Harish Noel Work Phone: [facility] Work Phone: 01-08-2022 14:16-0400 Systolic blood pressure 136 mm[Hg] Dr. Harish Noel Work Phone: [facility] Work Phone: 11-29-2021 11:55-0400 Body temperature 98.24 [degF] POLLY PHILIPPE MD [facility] 11-29-2021 11:55-0400 Diastolic Blood Pressure NBP 62 1 POLLY PHILIPPE MD [facility] 11-29-2021 11:55-0400 Heart rate 93 /min POLLY PHILIPPE MD [facility] 11-29-2021 11:55-0400 Mean blood pressure 77 mm[Hg] POLLY PHILIPPE MD [facility] 11-29-2021 11:55-0400 Reason For Taking VItal Signs POLLY PHILIPPE MD [facility] 11-29-2021 11:55-0400 Systolic Blood Pressure NBP 112 1 POLLY PHILIPPE MD [facility] 11-29-2021 10:33-0400 Heart rate 89 /min POLLY PHILIPPE MD [facility] 11-29-2021 09:05-0400 Heart rate 101 /min POLLY PHILIPPE MD [facility] 11-29-2021 07:28-0400 Body temperature 98.6 [degF] POLLY PHILIPPE MD [facility] 11-29-2021 07:28-0400 Diastolic Blood Pressure NBP 63 1 POLLY PHILIPPE MD [facility] 11-29-2021 07:28-0400 Mean blood pressure 78 mm[Hg] POLLY PHILIPPE MD [address] [place] [address] 11-29-2021 07:28-0400 Reason For Taking VItal Signs POLLY PHILIPPE MD [address] [place] [address] 11-29-2021 07:28-0400 Respiratory rate 18 /min POLLY PHILIPPE MD [address] [place] [address] 11-29-2021 07:28-0400 Systolic Blood Pressure NBP 114 1 POLLY PHILIPPE MD [address] [place] [address] 11-29-2021 04:28-0400 Body temperature 98.6 [degF] POLLY PHILIPPE MD [address] [place] [address] 11-29-2021 04:28-0400 Diastolic Blood Pressure NBP 52 1 POLLY PHILIPPE MD [address] [place] [address] 11-29-2021 04:28-0400 Mean blood pressure 64 mm[Hg] POLLY PHILIPPE MD [facility] 11-29-2021 04:28-0400 Reason For Taking VItal Signs POLLY PHILIPPE MD [address] [place] [address] 11-29-2021 04:28-0400 Respiratory rate 18 /min POLLY PHILIPPE MD [facility] 11-29-2021 04:28-0400 Systolic Blood Pressure NBP 109 1 POLLY PHILIPPE MD [facility] 11-29-2021 00:35-0400 Respiratory rate 18 /min POLLY PHILIPPE MD [facility] 11-28-2021 03:43-0400 SaO2% (BldA) [Mass fraction] 94.9 % POLLY PHILIPPE MD [facility] 11-27-2021 23:49-0400 Heart rate 98 /min POLLY PHILIPPE MD [facility] 11-26-2021 23:14-0400 Heart rate 84 /min POLLY PHILIPPE MD [facility] 11-26-2021 22:40-0400 SaO2% (BldA) [Mass fraction] 94.8 % POLLY PHILIPPE MD [facility] 11-26-2021 21:11-0400 SaO2% (BldA) [Mass fraction] 93.8 % POLLY PHILIPPE MD [facility] 11-26-2021 13:18-0400 Diastolic blood pressure 55 mm[Hg] POLLY PHILIPPE MD [facility] 11-26-2021 13:18-0400 Mean blood pressure 73 mm[Hg] POLLY PHILIPPE MD [facility] 11-26-2021 13:18-0400 Systolic blood pressure 113 mm[Hg] POLLY PHILIPPE MD [facility] 11-26-2021 11:24-0400 Diastolic blood pressure 58 mm[Hg] POLLY PHILIPPE MD [facility] 11-26-2021 11:24-0400 Mean blood pressure 86 mm[Hg] POLLY PHILIPPE MD [facility] 11-26-2021 11:24-0400 Systolic blood pressure 127 mm[Hg] POLLY PHILIPPE MD [facility] 11-26-2021 10:06-0400 Diastolic blood pressure 55 mm[Hg] POLLY PHILIPPE MD [facility] 11-26-2021 10:06-0400 Mean blood pressure 82 mm[Hg] POLLY PHILIPPE MD [facility] 11-26-2021 10:06-0400 Systolic blood pressure 123 mm[Hg] POLLY PHILIPPE MD [address] [place] [address] 11-26-2021 09:30-0400 Diastolic blood pressure 52 mm[Hg] POLLY PHILIPPE MD [facility] 11-26-2021 09:30-0400 Heart rate 77 /min POLLY PHILIPPE MD [facility] 11-26-2021 09:30-0400 Mean blood pressure 73 mm[Hg] POLLY PHILIPPE MD [address] [place] [address] 11-26-2021 09:30-0400 Systolic blood pressure 116 mm[Hg] POLLY PHILIPPE MD [address] [place] [address] 11-26-2021 06:29-0400 Heart rate 88 /min POLLY PHILIPPE MD [address] [place] [address] 11-25-2021 00:10-0400 Body temperature 98.42 [degF] POLLY PHILIPPE MD [address] [place] [address] 11-24-2021 20:09-0400 Body temperature 98.06 [degF] POLLY PHILIPPE MD [address] [place] [address] 11-24-2021 15:35-0400 Body temperature 98.42 [degF] POLLY PHILIPPE MD 03 [place] [address] 11-23-2021 12:45-0400 Body temperature 98.44 [degF] POLLY PHILIPPE MD [address] [place] [address] 11-23-2021 12:45-0400 Body temperature 97.88 [degF] POLLY PHILIPPE MD [address] [place] [address] 11-23-2021 12:40-0400 Body temperature 98.55 [degF] POLLY PHILIPPE MD [address] [place] [address] 11-23-2021 12:40-0400 Body temperature 97.93 [degF] POLLY PHILIPPE MD [facility] 11-23-2021 12:35-0400 Body temperature 98.56 [degF] POLLY PHILIPPE MD [address] [place] [address] 11-23-2021 12:35-0400 Body temperature 98.01 [degF] POLLY PHILIPPE MD [facility] 11-23-2021 12:11-0400 SaO2% (BldA) [Mass fraction] 97.8 % POLLY PHILIPPE MD [facility] 11-23-2021 11:29-0400 SaO2% (BldA) [Mass fraction] 99.2 % POLLY PHILIPPE MD [facility] 11-23-2021 11:00-0400 SaO2% (BldA) [Mass fraction] 99.0 % POLLY PHILIPPE MD [facility] 11-23-2021 06:01-0400 Heart rate 76 /min POLLY PHILIPPE MD [facility] 11-23-2021 05:54-0400 Body height 157.5 cm POLLY PHILIPPE MD [facility] 11-23-2021 05:54-0400 Body weight 102.3 kg POLLY PHILIPPE MD [facility] 11-23-2021 05:54-0400 Body weight 41.24 kg/m2 POLLY PHILIPPE MD [facility] 11-23-2021 05:54-0400 diastolic 105 mm[Hg] POLLY PHILIPPE MD [facility] 11-23-2021 05:54-0400 systolic 131 mm[Hg] POLLY PHILIPPE MD [facility] 11-05-2021 04:06-0400 Diastolic blood pressure 77 mm[Hg] Dr. Harish Noel Work Phone: [facility] Work Phone: 11-05-2021 04:06-0400 Heart rate 79 /min Dr. Harish Noel Work Phone: [facility] Work Phone: 11-05-2021 04:06-0400 Respiratory rate 20 /min Dr. Harish Noel Work Phone: [facility] Work Phone: 11-05-2021 04:06-0400 SaO2% (BldA) [Mass fraction] 95 % Dr. Harish Noel Work Phone: [facility] Work Phone: 11-05-2021 04:06-0400 Systolic blood pressure 159 mm[Hg] Dr. Harish Noel Work Phone: [facility] Work Phone: 11-05-2021 02:14-0400 Body height 157.[address] Harish Noel Work Phone: [facility] Work Phone: 11-05-2021 02:14-0400 Body mass index (BMI) [Ratio] 41.8 kg/m2 Dr. Harish Noel Work Phone: [facility] Work Phone: 11-05-2021 02:14-0400 Body temperature 98.1 [degF] Dr. Harish Noel Work Phone: [facility] Work Phone: 11-05-2021 02:14-0400 Body weight 103.[address] Harish Noel Work Phone: [facility] Work Phone: 09-08-2021 14:58-0400 Diastolic blood pressure 81 mm[Hg] Dr. Harish Noel Work Phone: [facility] Work Phone: 09-08-2021 14:58-0400 SaO2% (BldA) [Mass fraction] 94 % Dr. Harish Noel Work Phone: [facility] Work Phone: 09-08-2021 14:58-0400 Systolic blood pressure 157 mm[Hg] Dr. Harish Noel Work Phone: [facility] Work Phone: 09-08-2021 11:55-0400 Body height 157.[address] Harish Noel Work Phone: [facility] Work Phone: 09-08-2021 11:55-0400 Body mass index (BMI) [Ratio] 40.7 kg/m2 Dr. Harish Noel Work Phone: [facility] Work Phone: 09-08-2021 11:55-0400 Body temperature 97.1 [degF] Dr. Harish Noel Work Phone: [facility] Work Phone: 09-08-2021 11:55-0400 Body weight 101.[address] Harish Noel Work Phone: [facility] Work Phone: 09-08-2021 11:55-0400 Heart rate 101 /min Dr. Harish Noel Work Phone: [facility] Work Phone: 09-08-2021 11:55-0400 Respiratory rate 22 /min Dr. Harish Noel Work Phone: [facility] Work Phone: 09-05-2021 07:52-0400 Body height 157.[address] Harish Noel Work Phone: [facility] Work Phone: 09-05-2021 07:52-0400 Body weight 100.[address] Harish Noel Work Phone: [facility] Work Phone: 09-01-2021 12:02-0400 Body mass index (BMI) [Ratio] 40.6 kg/m2 Dr. Harish Noel Work Phone: [facility] Work Phone: 08-28-2021 09:45-0400 Body mass index (BMI) [Ratio] 40.6 kg/m2 Dr. Harish Noel Work Phone: [facility] Work Phone: 08-28-2021 09:45-0400 Body weight 100.[address] Harish Noel Work Phone: [facility] Work Phone: 08-28-2021 09:45-0400 Diastolic blood pressure 71 mm[Hg] Dr. Harish Noel Work Phone: [facility] Work Phone: 08-28-2021 09:45-0400 Heart rate 87 /min Dr. Harish Noel Work Phone: [facility] Work Phone: 08-28-2021 09:45-0400 Respiratory rate 18 /min Dr. Harish Noel Work Phone: [facility] Work Phone: 08-28-2021 09:45-0400 Systolic blood pressure 134 mm[Hg] Dr. Harish Noel Work Phone: [facility] Work Phone: 06-16-2021 15:17-0400 Body mass index (BMI) [Ratio] 41.1 kg/m2 Dr. Harish Noel Work Phone: [facility] Work Phone: 06-16-2021 15:17-0400 Body weight 102.[address] Harish Noel Work Phone: [facility] Work Phone: 06-16-2021 15:17-0400 Diastolic blood pressure 83 mm[Hg] Dr. Harish Noel Work Phone: [facility] Work Phone: 06-16-2021 15:17-0400 Heart rate 83 /min Dr. Harish Noel Work Phone: [facility] Work Phone: 06-16-2021 15:17-0400 Respiratory rate 18 /min Dr. Harish Noel Work Phone: [facility] Work Phone: 06-16-2021 15:17-0400 Systolic blood pressure 163 mm[Hg] Dr. Harish Noel Work Phone: [facility] Work Phone: 06-16-2021 15:17-0400 Body height 157.[address] Harish Noel Work Phone: [facility] Work Phone: 06-16-2021 15:17-0400 Body mass index (BMI) [Ratio] 41.1 kg/m2 Dr. Harish Noel Work Phone: [facility] Work Phone: 06-16-2021 15:17-0400 Body weight 102.[address] Harish Noel Work Phone: [facility] Work Phone: 06-16-2021 15:17-0400 Diastolic blood pressure 83 mm[Hg] Dr. Harish Noel Work Phone: [facility] Work Phone: 06-16-2021 15:17-0400 Heart rate 83 /min Dr. Harish Noel Work Phone: [facility] Work Phone: 06-16-2021 15:17-0400 Respiratory rate 18 /min Dr. Harish Noel Work Phone: [facility] Work Phone: 06-16-2021 15:17-0400 Systolic blood pressure 163 mm[Hg] Dr. Harish Noel Work Phone: [facility] Work Phone: 06-07-2021 08:26-0400 Body temperature 96.4 [degF] Dr. Harish Noel Work Phone: [facility] Work Phone: 06-07-2021 08:26-0400 Body weight 104.[address] Harish Noel Work Phone: [facility] Work Phone: 06-07-2021 08:26-0400 Diastolic blood pressure 90 mm[Hg] Dr. Harish Noel Work Phone: [facility] Work Phone: 06-07-2021 08:26-0400 Heart rate 90 /min Dr. Harish Noel Work Phone: [facility] Work Phone: 06-07-2021 08:26-0400 Respiratory rate 16 /min Dr. Harish Noel Work Phone: [facility] Work Phone: 06-07-2021 08:26-0400 Systolic blood pressure 160 mm[Hg] Dr. Harish Noel Work Phone: [facility] Work Phone: 06-07-2021 08:26-0400 Body temperature 96.4 [degF] Dr. Harish Noel Work Phone: [facility] Work Phone: 06-07-2021 08:26-0400 Body weight 104.[address] Harish Noel Work Phone: [facility] Work Phone: 06-07-2021 08:26-0400 Diastolic blood pressure 90 mm[Hg] Dr. Harish Noel Work Phone: [facility] Work Phone: 06-07-2021 08:26-0400 Heart rate 90 /min Dr. Harish Noel Work Phone: [facility] Work Phone: 06-07-2021 08:26-0400 Respiratory rate 16 /min Dr. Harish Noel Work Phone: [facility] Work Phone: 06-07-2021 08:26-0400 Systolic blood pressure 160 mm[Hg] Dr. Harish Noel Work Phone: [facility] Work Phone: 04-25-2021 14:02-0500 Diastolic blood pressure 82 mm[Hg] Dr. Harish Noel Work Phone: [facility] Work Phone: 04-25-2021 14:02-0500 Heart rate 80 /min Dr. Harish Noel Work Phone: [facility] Work Phone: 04-25-2021 14:02-0500 Respiratory rate 13 /min Dr. Harish Noel Work Phone: [facility] Work Phone: 04-25-2021 14:02-0500 SaO2% (BldA) [Mass fraction] 98 % Dr. Harish Noel Work Phone: [facility] Work Phone: 04-25-2021 14:02-0500 Systolic blood pressure 156 mm[Hg] Dr. Harish Noel Work Phone: [facility] Work Phone: 04-25-2021 10:28-0500 Body mass index (BMI) [Ratio] 41.1 kg/m2 Dr. Harish Noel Work Phone: [facility] Work Phone: 04-25-2021 10:28-0500 Body temperature 96.1 [degF] Dr. Harish Noel Work Phone: [facility] Work Phone: 04-25-2021 10:28-0500 Body weight 102.[address] Harish Noel Work Phone: [facility] Work Phone: Encounters Encounter Date Encounter Type Care Provider Facility Start: 09-07-2024 Evaluation and management of inpatient Dr. Polly Lomeli DO [facility] Work Phone: Start: 09-07-[address] Ida Noel MD Work Phone: [facility] Work Phone: Start: 07-16-2024 End: 07-16-[address] Harish Noel MD Work Phone: [facility] Work Phone: Start: 07-16-2024 End: 07-16-[address] Harish Noel MD -Laboratory Work Phone: Start: 07-16-2024 End: 07-16-2024 ambulatory [facility] Facility:[facility] Start: 07-02-2024 End: 07-02-[address] Harish Noel MD -[facility] Work Phone: Start: 07-02-2024 End: 07-02-2024 [facility] Start: 04-30-2024 Non-patient / Non-visit Dr. Nathan smith [facility] Work Phone: Start: 04-30-2024 Non-patient / Non-visit Dr. Lianne Cruz MD -[facility] Start: 04-29-2024 End: 04-29-2024 ambulatory [facility] Facility:[facility] Start: 04-29-2024 End: 04-29-2024 Non-patient / Non-visit Dr. Delgado Cruz MD -[facility] Work Phone: Start: 04-29-2024 End: 04-30-2024 ambulatory Harishsebastián LairdBert Facility:[facility] Start: 04-29-2024 End: 04-30-2024 Evaluation and management of inpatient Dr. Nathan Torres -Progressive Care Unit Work Phone: Start: 01-16-2024 End: 01-17-2024 ambulatory Harish Noel Facility:[facility] Start: 01-15-2024 End: 01-15-2024 Emergency department patient visit Harish Noel Facility:[facility] Start: 09-03-2023 End: 09-03-2023 Emergency department patient visit Harish Noel Facility:[facility] Start: 09-02-2023 End: 09-02-2023 Emergency department patient visit Harish Noel Facility:[facility] Start: 08-05-2023 End: 08-05-2023 ambulatory Harishsebastián Noel Facility:[facility] Start: 07-28-2022 End: 07-28-2022 Emergency department patient visit Dr. Harish Noel Work Phone: [facility]-Emergency Department Start: 06-11-2022 End: 06-11-[address] Harish Noel Work Phone: [facility] Work Phone: Start: 06-11-2022 End: 06-11-[address] Harish Noel Work Phone: [facility]-Laboratory Start: 05-16-2022 End: 05-16-[address] Harish Noel Work Phone: [facility] Start: 04-11-2022 End: 04-11-[address] Harish Noel Work Phone: [facility] Start: 01-21-2022 End: 01-21-2022 Emergency department patient visit Dr. Harish Noel Work Phone: [facility]-Emergency Department Start: 01-15-2022 Non-patient / Non-visit Dr. Madison Noel Work Phone: [facility] Start: 01-11-2022 End: 01-11-[address] Harish Noel Work Phone: [facility] Work Phone: Start: 01-11-2022 End: 01-11-[address] Harish Noel Work Phone: [facility]-Laboratory Start: 01-11-2022 End: 01-11-[address] Harish Noel Work Phone: [facility] Start: 01-08-2022 End: 01-08-[address] Harish Noel Work Phone: [facility] Start: 12-27-2021 End: 12-28-2021 ambulatory MS. JUAN JUAREZ SANDING SUPERVISOR Facility:A Start: 12-27-2021 End: 12-27-2021 Patient encounter procedure JUAN JUAREZ ATTENDANCE SECRETARY-SANDING SUPERVISOR [facility] Start: 12-13-2021 End: 12-14-2021 ambulatory MS. JUAN JUAREZ SANDING SUPERVISOR Facility:A Start: 12-13-2021 End: 12-13-2021 Patient encounter procedure JUAN JUAREZ ATTENDANCE SECRETARY-[facility] [employer] Start: 12-05-2021 Non-patient / Non-visit Dr. Madison Noel Work Phone: [facility] Start: 11-23-2021 End: 11-29-2021 Evaluation and management of inpatient POLLY PHILIPPE MD Facility:A Start: 11-23-2021 End: 11-29-2021 Evaluation and management of inpatient POLLY PHILIPPE MD [facility] Start: 11-17-2021 End: 11-18-2021 ambulatory POLLY PHILIPPE MD Facility:[facility] Start: 11-17-2021 End: 11-17-2021 Patient encounter procedure POLLY PHILIPPE MD [facility] Start: 11-05-2021 End: 11-05-2021 Emergency department patient visit Dr. Harish Noel Work Phone: [facility]-Emergency Department Start: 10-31-2021 End: 11-01-2021 ambulatory POLLY PHILIPPE MD Facility:A Start: 10-31-2021 End: 11-01-2021 ambulatory POLLY PHILIPPE MD Facility:[facility] Start: 10-11-2021 End: 10-11-2021 Emergency department patient visit HARISH NOEL MD. Facility:A Start: 09-08-2021 End: 09-08-2021 Emergency department patient visit Dr. Harish Noel Work Phone: [facility]-Emergency Department Start: 09-05-2021 Non-patient / Non-visit Dr. Madison Noel Work Phone: [facility] Start: 09-05-2021 End: 09-05-2021 Admission to same day surgery center Dr. Harish Noel Work Phone: [facility]-Medical Specialist/Special Procedures Start: 09-04-2021 Non-patient / Non-visit Dr. Madison Noel Work Phone: [facility] Start: 08-28-2021 End: 08-28-[address] Harish Noel Work Phone: [facility] Start: 07-25-2021 Non-patient / Non-visit Dr. Madison Noel Work Phone: [facility] Start: 07-24-2021 End: 07-24-[address] Harish Noel Work Phone: [facility]-Pulmonary Services/Neurology Start: 07-21-2021 Non-patient / Non-visit Dr. Madison Noel Work Phone: [facility] Start: 07-21-2021 End: 07-21-[address] Harish Noel Work Phone: [facility]-Cardiovascula r Services Start: 06-16-2021 End: 06-16-[address] Harish Noel Work Phone: [facility] Start: 06-07-2021 End: 06-07-[address] Harish Noel Work Phone: [facility]-Laboratory, [facility] Start: 06-07-2021 End: 06-07-[address] Harish Noel Work Phone: [facility] Start: 04-25-2021 End: 04-25-2021 Emergency department patient visit Dr. Harish Noel Work Phone: [facility]-Emergency Department Start: 09-15-2016 End: 09-15-2016 Emergency department patient visit VON Song MSRENATE Facility:[facility] Procedures Date Procedure Procedure Detail Performing [...] CABG x2- ADAN-LAD, SVG-OM 1 @ [facility] Dr. Philippe 11/23/21 Start: 11-05-2021 Plain chest X-ray Dr. Harish Noel Work Phone: Start: 09-08-2021 CT of head without contrast Dr. Harish ball Work Phone: Start: 09-05-2021 Cardiac catheterization POLLY PHILIPPE MD Start: 07-21-2021 Cardiovascular stress test using pharmacologic stress agent Dr. Harish Noel Work Phone: Start: 04-25-2021 Plain chest X-ray Dr. 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 Harish Noel MD Work Phone: Hysterectomy POLLY PHILIPPE MD Viral antigen assay Dr. Ida Noel Work Phone: Plan of Treatment Date Care Activity Detail Author Start: 09-07-2024 Verification routine [facility] Start: 09-07-2024 Admission procedure [facility] Start: 09-07-2024 Hospital admission, emergency, from emergency room, medical nature [facility] Start: 09-07-2024 [facility] Start: 07-02-2024 Patient referral [facility] Work Phone: Start: 04-30-2024 Patient discharge [facility] Start: 04-30-2024 Inhalation therapy procedure [facility] Start: 04-29-2024 Following clinical p athway protocol [facility] Start: 04-29-2024 Assessment of risk o f venous thromboembolism [facility] Start: 04-29-2024 Care regimes management [facility] Start: 04-29-2024 Catheterization of vein [facility] Start: 04-29-2024 Incentive spirometry [facility] Start: 04-29-2024 Insertion of cathete r into peripheral vein [facility] Start: 04-29-2024 Measuring intake and output [facility] Start: 04-29-2024 Notification of physician [facility] Start: 04-29-2024 Oxygen therapy [facility] Start: 04-29-2024 Providing care accor ding to standard [facility] Start: 04-29-2024 Provision of activity privileges [facility] Start: 04-29-2024 Referral to service [facility] Start: 04-29-2024 End: 04-29-2024 [facility] Start: 04-29-2024 Admission procedure [facility] Start: 04-29-2024 Patient referral to dietitian [facility] Start: 05-16-2022 Patient referral [facility] Work Phone: Start: 04-11-2022 Patient referral [facility] Work Phone: Start: 11-05-2021 [facility] Work Phone: Start: 09-08-2021 [facility] Work Phone: Magnesium measurement [facility] Patient Education [facility] Work Phone: Patient referral [facility] Work Phone: Payers Date Payer Category Payer Unknown [id number] 2023 Self-pay [id number] 2021 Medicare [id number] [facility] [id number] 2016 Medicaid [id number] 1950 Unknown [id number] 2.16.8 [id number] 1950 Unknown [id number] 2.16.8 [id number] 1950 Unknown [id number] 2.16.8 [id number] 1950 Unknown [id number] 2.16.8 [id number] 1950 Unknown [id number] 2.16.8 [id number] 1950 Unknown [id number] 2.16.8 [id number] 1950 Unknown [id number] 2.16.8 [id number] Unknown [id number] 2.16.8 [id number] Unknown [id number] 2.16.8 [id number] Unknown [id number] 2.16.8 [id number] Unknown [id number] 2.16.8 [id number] Unknown [id number] 2.16.8 [id number] Unknown [id number] 2.16.8 [id number] Unknown [id number] 2.16.8 [id number] Unknown [id number] 2.16.8 [id number] Unknown [id number] 2.16.8 [id number] Unknown [id number] 2.16.8 [id number] Unknown [id number] 2.16.8 [id number] Unknown [id number] 2.16.8 [id number] Unknown [id number] 2.16.8 [id number] Social History Date Type Detail Facility Start: 06-16-2021 End: 07-28-2022 Tobacco smoking status NHIS Unknown if ever smoked [facility] Start: 07-05-2020 Non-smoker [facility] Start: 1950 Sex Assigned At Female [facility] Start: 10-31-2021 End: 09-07-2024 Tobacco smoking status Ex-smoker (finding) [facility] Comment on above: Quit in 2016 Start: 07-22-2024 Sex Female (finding) [facility] Goals Date Patient Goal Desired Activity /State Functional Status Date Assessment Result Facility 04-30-2024 Functional status Ambulates;Bathroom Priv ilege [facility] Work Phone: 11-29-2021 Functional Status Supervised [address] [facility] 11-29-2021 Functional Status COVID 19 Surge in Effec t Yes [facility] 11-28-2021 Functional Status Ambulation in [facility] 11-28-2021 Functional Status [facility] 11-28-2021 Functional Status Mod I [facility] 11-28-2021 Functional Status Supervised 12 [facility] 11-28-2021 Functional Status Bath cloths, Shampoo/Body wash (no rinse) [facility] 11-27-2021 Functional Status [facility] 11-27-2021 Functional Status [facility] 11-27-2021 Functional Status Done [facility] 11-27-2021 Functional Status bilateral knee [facility] 11-27-2021 Functional Status [facility] 11-26-2021 Functional Status [facility] 11-25-2021 Functional Status No falls in th e last 6 months, per pt. [facility] 11-25-2021 Functional Status [facility] 11-25-2021 Functional Status [facility] 11-25-2021 Functional Status SCD On/Re-appl ied bilateral knee high [facility] 11-25-2021 Functional Status [facility] 11-25-2021 Functional Status [facility] 11-24-2021 Functional Status preventative foam dress ing [facility] 11-24-2021 Functional Status [address] [facility] 11-24-2021 Functional Status Apartment, Single level home [facility] 11-23-2021 Functional Status [facility] 11-23-2021 Functional Status Special Call D tani Unable to use call device [facility] 11-23-2021 Functional Status [facility] 11-23-2021 Functional Status [facility] 11-23-2021 Functional Status Sensory Deficits None [facility] Mental Status Date Assessment Result Facility 09-07-2024 Cognitive function Voice/Name [facility] Work Phone: 04-30-2024 Cognitive function Voice/Name [facility] Work Phone: 11-29-2021 Mental Status Oriented x 4 [facility] 11-29-2021 Mental Status [facility] 11-28-2021 Mental Status [facility] 11-05-2021 Cognitive function Voice/Name [facility] Work Phone: 09-08-2021 Cognitive function Level Of Cons ciousness Awake;Alert;Appropriate;Follow s Commands [facility] Work Phone: 04-25-2021 Cognitive function Voice/Name [facility] Work Phone: Clinical Notes 03-18-2016 to 09-07-2024 Note Date & Type Note Facility 09-07-2024 Discharge summary [facility] 09-07-2024 Radiology Diagnostic study note [facility] Imaging Services [address] [place] [address] Chest PA and Lateral MR#: [id number] Acct: [id number] Name: FELICITAS ALCANTARA Rep #: [id number] : 1950 F 73 From: Manuel Mckeon MD PCP: Dr. Harish Noel MD Status: REG ER Study:Chest PA and Lateral Date of Exam: 09/07/24 Exam# [id number] Ordering Dr: Masoud Hamilton DO PROCEDURE: CHEST [...] No evidence for acute abnormality. [facility] CC: Dr. Masoud Ospina DO; Dr. Harish Noel MD ~ Speedometer Mechanic: Signed [facility] 07-02-2024 Evaluation note Diagnosis Onset Date Resolution Fatigue acute July 02 12:52pm Atherosclerotic heart disease of [place] coronary artery without angina pectoris chronic July [...] Hypertension chronic September 07, 2 025 3:58am [facility] Work Phone: 1(788) 706-694902-13-2025 [facility] Medical Records Department [address] [place] [address] Discharge Summary 04/30/24 1446 MR#: [id number] Acct: [id number] Name: FELICITAS ALCANTARA Rep #: [id number] : 1950 73 From: Nathan Torres DO PCP: Dr. Harish Noel MD Status:ADM RUBINA Location: [place] [address] Providers Date of Admission: 04/29/24 Primary Care [...] 79.6 H, Lymph % (Auto) 12.1 L, Rice % (Auto) 4.9, Eos % (Auto) 2.3, [...] Clarity Clear, Urine pH 8.0, Ur Specific [place] 1.010, Urine Protein Negative, Urine Glucose (UA) [...] 90.6 H, Lymph % (Auto) 7.1 L, Rice % (Auto) 0.5, Eos % (Auto) 0.0, [...] cardiomegaly. Otherwise unremarkable chest radiograph. Reading Location: [facility] D/C Instructions Discharge Diet: 2000 Calorie Control [...] reason for non-treat (more content not included)... [facility]02-12-2025 Evaluation note* Diagnosis Onset Date Resolution Status [...] July 02 12:52pm Atherosclerotic heart disease of [place] coronary artery without angina pectoris chronic July 02, 2024 12:52pm Essential hypertension chronic Ap 2024 12:52pm Hyperlipemia chronic July 02, 2024 12:52pm Hypothyroidism chronic June 12:52pm Type 2 diabetes mellitus chronic July 02, 2024 12:52pm Chest pain noneactive July 02 12:52pm [facility] Work Phone: 1(549) 390-542811-06-2022 Hospital Discharge instructions Additional Instructions 2 puffs of albuterol metered-dose inhaler every 4-6 hours for shortness of breath or wheezing.[facility] Work Phone: 1(193) 337-581410-13-2022 Note ORIGINAL EXAMINATION: TWO XRAY VIEWS OF [...] Sign Date: 12/28/2021 12:02:56 AM Ordering Provider: [facility]10-12-2022 Note ORIGINAL EXAMINATION: TWO XRAY VIEWS OF [...] Sign Date: 12/28/2021 12:02:56 AM Ordering Provider: [facility]09-16-2022 Evaluation + Plan note Future Scheduled Tests Laboratory* Basic Metabolic Panel 12/01/21 Radiology* XR Chest 2 Views (PA & Lateral) 12/19/[address] [facility] 09-15-2022 Note ORIGINAL EXAMINATION: TWO XRAY [...] 11/30/2021 12:35:45 AM Ordering Provider: NAT DUNN [id number] Note Discharge Instructions Thank you for allowing [facility] to assist you with your healthcare needs. The following is importantdischarge information regarding your hospital visit. Your Care Team HARISH NOEL MD Your Diagnosis CAD IN SOBOBA ARTERY s/p PCI 2015; s/p CABG x2 [...] Op 12/05/2021 10:00 AM EDT JUAN JUAREZ [facility] Follow Up Appointments Follow Up with JUAN JUAREZ When 12/05/2021 10:00 AM EDT Why: This will be with Dr. Philippe's nurse practitioner. Please present to [facility] radiology department 1 hour prior to this visit for chest x-ray. Chest padmini will be removed at this visit. Where: [address] [facility] [place] [address]- Follow Up with Discharge to [facility] LOC [phone] When Within 1-2 days Follow Up with GAGE CHIRINOS MD, [facility] When Why: Please call rianna for follow-up appointment in 4-6 weeks (re: diabetes), can schedule at [place] office. Bring blood glucose meter with you to your appointment. Where: [address], [place] [address] [phone] Follow Up with SA[facility]IB FRASER [facility], [facility] When Within 1-2 days Why: Please call to arrange a hospital follow-up and possible trial void. Where: [address] [facility] [address] [facility] [place] [address] [phone] Follow Up with HARISH NOEL MD When Within 1-2 days Why: Please call to arrange a hospital follow-up. Where: [address] [facility] [address] [place] [address]- [phone] Follow Up with free When Why: Follow up with primary care to have a Sleep Study ordered Where: Follow Up with Cardiac Rehab When Why: The Cardiac Rehab department will call you in 6 weeks to schedule you for phase 2. Informationgiven about cardiac rehab. If you have any questions please call [phone]. Where: [address] [place] [address] [place] [address]- The Following Activity and Diet Have Been [...] to: POLLY PHILIPPE MD, Please present to [facility] radiology department 1 hour prior to office [...] for every person. A diet and nutrition services worker (registered dietitian) can help you make a [...] 15 g of carbohydrates: hamburger bun or Bahraini muffin. oz (15 mL) syrup. oz (14 [...] Identify the foods that contain carbohydrates: Rice. Edna. Milk. Strawberries. 2. Calculate how many servings [...] manage your diabetes. A diet and nutrition services worker (registered dietitian) can help you make a meal plan and calculate how many carbohydrates you should have at each meal and snack. This information is not intended to replace advice given to you by your health care provider. Make sure you discuss any questions you have with your health care provider. Document Released: 03/04/2006 Document Revised: 09/26/2017 Document Reviewed: 08/15/2016 S[employer]x Patient Education 2020 [employer] OPEN HEART SURGERY (Bypass or Valve [...] diet and you may take a mild txgu-vwa-mplniya laxative like Milk of Magnesia . CARDIAC [...] call your surgeon or your heart doctor. [facility] also has a free stop smoking program called Give it Up and if you want to attend, pleasecall [phone] ([phone]). Call the Surgeon If your incisions are [...] in your calf. Call the Heart Doctor (Carpet Cleaner) If your heart beats are irregular or [...] to receive it can visit one of [facility] vaccine clinics. There are many vaccine clinic locations within the [facility]. For locations and available times, please visit https://[email or web address].[place].gov/. It is important to note that some COVID mobile vaccine clinics are held outdoors and may be canceled in rainy or stormy conditions. To learn more about pediatric vaccinations (ages 5-11), we invite you to visit the [facility] webpage. https://www.[facility].org/pages/2529-Sazmc-Loftnoheckf-Gwxnnskgyf-Jzqov-Tza stions.htmlTo learn more about the COVID-19 vaccine, we invite you to visit the [employer] website for a list of frequently asked questions. [email or web address]-vpo-Xdycuoji/fkolg-Vtmaupm-Yowajdtvqs _Asked-Questions.pdf [facility] [employer] Patient Portal Access Instructions: Stay connected with your healthcare team and access your personal medical information anytime with the [employer] Patient Portal.If you would like a full copy of your medical records, please contact the [facility] Medical Records Department, Saturday through Saturday between 8a.m. and 4:30p.m. Please follow the directions below to access the portal: 1.Access the email account you provided upon registration to the [facility].2.Look for an invitation email from [facility].3.Open the email and access the invitation link: Accept Invitation to [facility] [employer] [facility].Fill in the required singer to create your account. Sign into [email or web address] with your username and password that you [...] you will allow to register on the [facility] [employer] Patient Portal for access to your information. You can also access the [employer] Patient Portal on the [employer] ina. Simply click on Health Records under [employer] and then click on the [facility] [...] Call your local pharmacy or go to http://bit.PurpleCow/4H4Hd2d to find one close to you.3.Make use of household items: Use cat litter or old coffee grounds to dispose medications if other options arenot available. Mix your drugs with these household products, seal them in an airtight container andthrow it into the garbage. Call [facility]: [phone] to be sure your drugs can be [...] am aware that I should contactmy doctor. Patient/It Systems Manager Signature: Date/Time: Relationship to Patient: Witness Name/Signature: Date/Time: [facility] [id number] Endocrinology Progress note Date of Service 11/29/2021 [...] Glucose, Capillary 11/29/2021 07:28:00 EDT 174 mg/dL [place] 82-115 Glucose Testing Glucose Level 11/29/2021 04:54:00 EDT 168 mg/dL [place] 82-115 Glucose Testing Blood Glucose, Capillary 11/28/2021 20:21:00 EDT 159 mg/dL [place] 82-115 Glucose Testing Blood Glucose, Capillary 11/28/2021 16:40:00 EDT 159 mg/dL [place] 82-115 Y Glucose Testing Blood Glucose, Capillary 11/28/2021 11:53:00 EDT 202 mg/dL [place] 82-115 Glucose Testing Blood Glucose, Capillary 11/28/2021 07:15:00 EDT 205 mg/dL [place] 82-115 EKG No qualifying data available. Assessment/Plan 1. CAD IN SOBOBA ARTERY s/p PCI 2015; s/p CABG x2 [...] had a cardiac catheterization completed with her facing slitter, Dr. Jewell in [place] which revealed an EF of 55% with [...] by DIVINA DOSS on 11/29/2021 11:[address] [facility] [id number] Hospital Discharge instructions Patient Education 11/29/2021 08:48:47 [...] 05/16/2007 Document Revised: 03/03/2018 Document Reviewed: 03/03/2018 Sync[employer]x Patient Education 2020 [employer] Dashboard. 11/29/2021 08:48:46 Carbohydrate Counting for Diabetes Mellitus, [...] for every person. A diet and nutrition services worker (registered dietitian) can help you make a [...] 15 g of carbohydrates: hamburger bun or Bahraini muffin. oz (15 mL) syrup. oz (14 [...] 1.Identify the foods that contain carbohydrates: Rice. Edna. Milk. Strawberries. 2.Calculate how many servings you [...] manage your diabetes. A diet and nutrition services worker (registered dietitian) can help you make a meal plan and calculate how many carbohydrates you should have at each meal and snack. This information is not intended to replace advice given to you by your health care provider. Make sure you discuss any questions you have with your health care provider. Document Released: 03/04/2006 Document Revised: 09/26/2017 Document Reviewed: 08/15/2016 Syncronex Patient Education 2020 [employer] Twitter Dashboard. 11/29/2021 08:48:44 8- Open Heart Surgery (Bypass [...] diet and you may take a mild rshb-tsu-uxotgfc laxative like Milk of Magnesia . CARDIAC [...] call your surgeon or your heart doctor. [facility] also has a free stop smoking program called Give it Up and if you want to attend, pleasecall [phone] ([phone]). Call the Surgeon If your incisions are [...] in your calf. Call the Heart Doctor (Carpet Cleaner) If your heart beats are irregular or [...] Follow Up Care 10/11/2021 14:55:42 With:Discharge to [facility] [phone] Address:Unknown When:1-2 days With:GAGE CHIRINOS MD, [facility] Address: [address] [place] [phone] When: Unknown Comments:Please call rianna for follow-up appointment in 4-6 weeks (re: diabetes), can schedule at [place] office. Bring blood glucose meter with you to your appointment. With:SAQIB FRASER MD, [facility], Urology Service Address: [address] [facility] [address] [place] [address] [phone] When:1-2 days Comments:Please call to arrange a hospital follow-up and possible trial void. With:HARISH NOEL MD Address: [address] [facility] [address] [place] [address] [phone] When:1-2 days Comments:Please call to arrange a hospital follow-up. With:JUAN JUAREZ APRN-SANDING SUPERVISOR Address: [address] [place] [address] [address] [facility] [place] [address]- When:12/05/2021 10:00:00 Comments:This will be with Dr. Philippe's nurse practitioner. Please present to [facility] radiology department 1 hour prior to this visit for chest x-ray. Chest padmini will be removed at this visit. With:free Address: When: Unknown Comments:Follow up with primary care to have a Sleep Study ordered With:Cardiac Rehab Address: [address] [place] [address] [place] [address]- When: Unknown Comments:The Cardiac Rehab department will call you in 6 weeks to schedule you for phase 2. Information given about cardiac rehab. If you have any questions please call [phone]. [facility] 09-14-2022 Discharge summary Date of Service 11/29/2021 Discharge Diagnosis 1. CAD IN SOBOBA ARTERY s/p PCI 2016; s/p CABG x2 [...] (R32 - ICD-10-CM) Atherosclerotic heart disease of [place] coronary artery without angina pectoris (I25.10 - [...] (one day only), Blood, Once, Preferred Lab: [facility], Stop date 11/29/21 4:00:00 EDT(Complete) Other status: CBC,11/29/21 5:01:00 EDT, Next AM Draw (one day only), Blood, Once, Preferred Lab: [facility], Stop date 11/29/21 4:00:00 EDT(Complete) Ordered: Communication Order (scheduled),11/29/21 9:18:00 EDT, Once, 11/29/21 9:18:00 EDT, Temporary pacer wires removed at 8:30 AM. Patient may be discharged to [facility] after 12:30 PM. Discontinued: Coreg,Start: 11/28/21 8:00:00 [...] Refill(s) Ordered: Discharge,11/29/21 9:18:00 EDT, Discharged to: [facility], [place] Ordered: Discharge Blood Glucose Monitoring,When [...] to: POLLY PHILIPPE MD, Please present to [facility] radiology department 1 hour prior to office [...] She hada cardiac catheterization completed with her facing slitter, Dr. Jewell in [place] which revealed an EF of 55% with [...] nebs. nitroprusside drip has been weaned off. [facility] endocrinology consulted for diabetic management. PT/OT consulted. [...] obtain urinalysis and urine culture, and consult [facility] u[facility]. WBC 20.3 this morning. Discontinue A-line. [...] 200 cc. Likely discharge to [facility] tomorrow. [1]POD #6: Patient feels much better today. Denies any nausea. She is anxious to leave today. SPO2 93 to 95% on 1.5 L nasal cannula (87% on room air). CBC and BMP reviewed with Dr. Philippe as well as chest x-ray. Patient is cleared to be discharged to [facility] per Dr. Philippe. We will increase [...] and will need to follow-up with the [facility] urology for possible trial void versus catheter [...] obtusemarginal coronary artery. [2] Consults Consult to [facility] - Ordered -- 11/24/21 6:54:00 [...] bra or breast support. Medications New Prescription [id number] Milligram by mouth every 4 hours as [...] pain. Refills: 3. I have reviewed the [place] Automated Rx Reporting System (OARRS) report for [...] Dr. Philippe's nurse practitioner. Please present to [facility] radiology department 1 hour prior to this visit for chest x-ray. Chest padmini will be removed at this visit. Where: [address] [facility] [address] [facility] [place] [address]- Follow Up with Discharge to [facility] LOC [phone] When Within 1-2 days Follow Up with GAGE CHIRINOS MD, [facility] When Why: Please call rianna for follow-up appointment in 4-6 weeks (re: diabetes), can schedule at [facility]. Bring blood glucose meter with you to your appointment. Where: [address] [place] [address] [phone] Follow Up with SAQIB FRASER MD, [facility], Urology Service When Within 1-2 days Why: Please call to arrange a hospital follow-up and possible trial void. Where: [address] [facility] [address] [facility] [address] [phone] Follow Up with HARISH NOEL MD When Within 1-2 days Why: Please call to arrange a hospital follow-up. Where: [address] [facility] [address] [place] [address] [phone] Follow Up with free When Why: Follow up with primary care to have a Sleep Study ordered Where: Follow Up with Cardiac Rehab When Why: The Cardiac Rehab department will call you in 6 weeks to schedule you for phase 2. Informationgiven about cardiac rehab. If you have any questions please call [phone]. Where: [address] [facility] [place] [address]- Follow Up Appointments Transfer of Care OT [...] to: POLLY PHILIPPE MD, Please present to [facility] radiology department 1 hour prior to office [...] To Patient [1] Progress Note; NAT DUNN APRN-SANDING SUPERVISOR 11/28/2021 10:10 EDT [2] OPERATIVE NOTE; POLLY PHILIPPE MD 11/23/2021 00:00 EDT Digitally Signed by NAT DUNN APRN-SANDING SUPERVISOR on 11/29/2021 02:[address] [facility] [id number] Note Discharge Instructions Thank you for allowing [facility] to assist you with your healthcare needs. The following is importantdischarge information regarding your hospital visit. Your Care Team HARISH NOEL MD Your Diagnosis CAD IN SOBOBA ARTERY s/p PCI 2015; s/p CABG x2 [...] Op 12/05/2021 10:00 AM EDT JUAN JUAREZ [facility] Cardioth[facility]acic Surgery Follow Up Appointments Follow Up with JUAN JUAREZ When 12/05/2021 10:00 AM EDT Why: This will be with Dr. Philippe's nurse practitioner. Please present to [facility] radiology department 1 hour prior to this visit for chest x-ray. Chest padmini will be removed at this visit. Where: [address] [facility] [place] [address]- Follow Up with Discharge to [facility] LOC [phone] When Within 1-2 days Follow Up with GAGE CHIRINOS MD, [facility] When Why: Please call rianna for follow-up appointment in 4-6 weeks (re: diabetes), can schedule at [place] office. Bring blood glucose meter with you to your appointment. Where: [address], [place] [address] [phone] Follow Up with SAQIB FRASER MD, [facility] When Within 1-2 days Why: Please call to arrange a hospital follow-up and possible trial void. Where: [address] [facility] [address] [facility] [address]- [phone] Follow Up with HARISH NOEL MD When Within 1-2 days Why: Please call to arrange a hospital follow-up. Where: [address] [facility] [address] [place] [address]- [phone] Follow Up with free When Why: Follow up with primary care to have a Sleep Study ordered Where: Follow Up with Cardiac Rehab When Why: The Cardiac Rehab department will call you in 6 weeks to schedule you for phase 2. Informationgiven about cardiac rehab. If you have any questions please call [phone]. Where: [address] [facility] [place] [address]- The Following Activity and Diet Have Been [...] to: POLLY PHILIPPE MD, Please present to [facility] radiology department 1 hour prior to office [...] for every person. A diet and nutrition services worker (registered dietitian) can help you make a [...] 15 g of carbohydrates: hamburger bun or Bahraini muffin. oz (15 mL) syrup. oz (14 [...] Identify the foods that contain carbohydrates: Rice. Edna. Milk. Strawberries. 2. Calculate how many servings [...] manage your diabetes. A diet and nutrition services worker (registered dietitian) can help you make a meal plan and calculate how many carbohydrates you should have at each meal and snack. This information is not intended to replace advice given to you by your health care provider. Make sure you discuss any questions you have with your health care provider. Document Released: 03/04/2006 Document Revised: 09/26/2017 Document Reviewed: 08/15/2016 Syncronex Patient Education 2020 S[employer] Inc. OPEN HEART SURGERY (Bypass or Valve [...] diet and you may take a mild fnrt-emp-cqkbcfb laxative like Milk of Magnesia . CARDIAC [...] call your surgeon or your heart doctor. [facility] also has a free stop smoking program called Give it Up and if you want to attend, pleasecall [phone] ([phone]). Call the Surgeon If your incisions are [...] in your calf. Call the Heart Doctor (Carpet Cleaner) If your heart beats are irregular or [...] to receive it can visit one of [facility] vaccine clinics. There are many vaccine clinic locations within the [facility]. For locations and available times, please visit https://gettheshot.coronavirus.[place].gov/. It is important to note that some COVID mobile vaccine clinics are held outdoors and may be canceled in rainy or stormy conditions. To learn more about pediatric vaccinations (ages 5-11), we invite you to visit the [facility] webpage. https://www.[facility].org/pages/0215-Anyah-Uanizyevrdz-Fmvylsuyza-Djypd-Ord stions.htmlTo learn more about the COVID-19 vaccine, we invite you to visit the [employer] website for a list of frequently asked questions. [email or web address]/[email or web address]-yjl-Qrtvkvtu/eajly-Hqmkodt-Jbtsgujfop _Asked-Questions.pdf [employer] Patient Portal Access Instructions: Stay connected with your healthcare team and access your personal medical information anytime with the [employer] Patient Portal.If you would like a full copy of your medical records, please contact the [facility] Medical Records Department, Saturday through Saturday between 8a.m. and 4:30p.m. Please follow the directions below to access the portal: 1.Access the email account you provided upon registration to the hospital.2.Look for an invitation email from [facility].3.Open the email and access the invitation link: Accept Invitation to [employer] [facility]4.Fill in the required singer to create your account. Sign into [email or web address] with your username and password that you [...] will allow to register on the [employer] Patient Portal for access to your information. You can also access the [employer] Patient Portal on the [employer]. Simply click on Health Records under [employer] and then click on the [employer] logo. HOW TO SAFELY DISPOSE OF PRESCRIPTION [...] Call your local pharmacy or go to http://bit.ly/9P6Do4h to find one close to you.3.Make use of household items: Use cat litter or old coffee grounds to dispose medications if other options arenot available. Mix your drugs with these household products, seal them in an airtight container andthrow it into the garbage. Call [facility]: [phone] to be sure your drugs can be [...] am aware that I should contactmy doctor. Patient/It Systems Manager Signature: Date/Time: Relationship to Patient: Witness Name/Signature: Date/Time: [facility] [id number] Note Date of Service 11/29/2021 Temporary A and V pacer wires discontinued at oh 8:30 AM. Patient tolerated well. Patient instructed to remain bedrest for 1 hour. Digitally Signed by NAT DUNN APRN-SANDING SUPERVISOR on 11/29/2021 08:[address] [facility] [id number] Note ORIGINAL EXAMINATION: TWO XRAY VIEWS OF [...] Date: 11/30/2021 12:35:45 AM Ordering Provider: NAT ABEBEGerman HospitalBujyywuq57-63-6302 Nurse Progress note Student's documentation was reviewed and all medications were verified prior to administration. Digitally Signed by Windy Jaimes RN on 11/28/2021 06:[address] [facility] HospitalSadnxfvf50-06-5374 Note Date of Service 11/28/2021 Chief Complaint POD #5 This is a 71-year-old female with past medical history of CAD status post PCI in 2016, hypothyroidism, hypertension, hyperlipidemia, irritable bowel syndrome, diabetes, history of DVT, history of tobacco use (quit 6 years ago), history of GI bleeds requiring blood transfusions, and obesity. She hada cardiac catheterization completed with her facing slitter, Dr. Jewell in [place] which revealed an EF of 55% with [...] nebs. nitroprusside drip has been weaned off. [facility] consulted for diabetic management. PT/OT consulted. [...] obtain urinalysis and urine culture, and consult [facility]. WBC 20.3 this morning. Discontinue A-line. Keep in ICU. [facility]. Wean O2. [...] 200 cc. Likely discharge to [facility] tomorrow. Subjective Patient resting comfortably in bed. [...] access: Left subclavian triple-lumen Disposition: [facility] [place] Weight Current Weight Dosing Weight: 102.3 kg [...] 11/26/21 20:59:00 EDT Assessment/Plan 1. CAD IN SOBOBA ARTERY s/p PCI 2016; s/p CABG x2 [...] Diabetes mellitus Hgb A1c 9.7% Followed by [facility]. Glucoses ranging 172-240. On Humalog sliding [...] negative. 15. Postoperative urinary retention Followed by [facility]. Urine culture negative. Plan to remove [...] many are missed. [1] Progress Note; KAELYN DREWIMPOSER 11/27/2021 08:52 EDT Digitally Signed by NAT DUNN on 11/28/2021 10:[address] [facility] [id number] Endocrinology Progress note Date of Service 11/28/2021 [...] Glucose, Capillary 11/28/2021 11:53:00 EDT 202 mg/dL [place] 82-115 Glucose Testing Blood Glucose, Capillary 11/28/2021 07:15:00 EDT 205 mg/dL [place] 82-115 Glucose Testing Blood Glucose, Capillary 11/27/2021 21:05:00 EDT 172 mg/dL [place] 82-115 Glucose Testing Blood Glucose, Capillary 11/27/2021 16:40:00 EDT 240 mg/dL HI 82-115 Y Glucose Testing Blood Glucose, Capillary 11/27/2021 11:19:00 EDT 168 mg/dL [place] 82-115 Glucose Testing Blood Glucose, Capillary 11/27/2021 07:17:00 EDT 166 mg/dL [place] 82-115 EKG No qualifying data available. Assessment/Plan 1. CAD IN SOBOBA ARTERY s/p PCI 2015; s/p CABG x2 [...] had a cardiac catheterization completed with her facing slitter, Dr. Jewell in [place] which revealed an EF of 55% with [...] by DIVINA DOSS on 11/28/2021 01:[address] [facility] HospitalOhrarpsq30-99-2872 Nurse Progress note Patient refused morning potassium, education provided on why patient was prescribed this supplement, patient stated she couldn't take any more pills this morning. Patient stated she wanted to sign herself out, did not want to go to an extended care facility for therapy. More education provided. Digitally Signed by Ina Dukes RN on 11/28/2021 12:[address] [facility] HospitalDtdkxlku81-77-1599 Note Date of Service 11/28/2021 Chief Complaint POD #5 This is a 71-year-old female with past medical history of CAD status post PCI in 2016, hypothyroidism, hypertension, hyperlipidemia, irritable bowel syndrome, diabetes, history of DVT, history of tobacco use (quit 6 years ago), history of GI bleeds requiring blood transfusions, and obesity. She hada cardiac catheterization completed with her facing slitter, Dr. Jewell in [place] which revealed an EF of 55% with [...] nebs. nitroprusside drip has been weaned off. [facility] consulted for diabetic management. PT/OT consulted. [...] obtain urinalysis and urine culture, and consult [facility]. WBC 20.3 this morning. Discontinue A-line. Keep in ICU. Postop day [facility]. Wean O2. [...] to 12.5 mg twice daily. Discon tinue [place] catheter today for an attempt a trial void. Bladder scan in 4 hours. We will replace indwelling [place] catheter if bladder scan is greater than 200 cc. Likely discharge to [facility] tomorrow. Subjective Patient resting comfortably in bed. [...] access: Left subclavian triple-lumen Disposition: [facility] [place] Weight Current Weight Dosing Weight: 102.3 kg [...] 11/26/21 20:59:00 EDT Assessment/Plan 1. CAD IN SOBOBA ARTERY s/p PCI 2016; s/p CABG x2 [...] Diabetes mellitus Hgb A1c 9.7% Followed by [facility]. Glucoses ranging 172-240. On Humalog sliding [...] negative. 15. Postoperative urinary retention Followed by [facility]. Urine culture negative. Plan to remove [...] by NAT DUNN on 11/28/2021 10:[address] [facility] HospitalXkcxrtzm78-05-6988 Note. MICRO - Microbiology PROCEDURE: Urine Culture [...] Locations *1: This test was performed at: [address], [facility] , [facility] ([place])11-28-2021 Note ORIGINAL EXAMINATION: TWO XRAY VIEWS OF [...] Sign Date: 11/28/2021 8:13:29 AM Ordering Provider: [facility]09-13-2022 Note ORIGINAL EXAMINATION: TWO XRAY VIEWS [...] Sign Date: 11/28/2021 8:13:29 AM Ordering Provider: [facility]09-12-2022 Endocrinology Progress note Date of Service 11/27/2021 [...] Glucose, Capillary 11/27/2021 07:17:00 EDT 166 mg/dL [place] 82-115 Glucose Testing Blood Glucose, Capillary 11/26/2021 23:04:00 EDT 137 mg/dL [place] 82-115 Glucose Testing Blood Glucose, Capillary 11/26/2021 20:38:00 EDT 142 mg/dL W[place] 82-115 Glucose Testing Blood Glucose, Capillary 11/26/2021 16:40:00 EDT 161 mg/dL [place] 82-115 Glucose Testing Blood Glucose, Capillary 11/26/2021 11:24:00 EDT 243 mg/dL [place] 82-115 Glucose Testing Blood Glucose, Capillary 11/26/2021 07:35:00 EDT 165 mg/dL [place] 82-115 EKG EKG - Completed -- 11/26/21 20:59:00 EDT Electrocardiogram - [facility]Process -- 11/27/21 6:00:00 EDT, On the 4th post op day Assessment/Plan 1. CAD IN SOBOBA ARTERY s/p PCI 2015; s/p CABG x2 [...] had a cardiac catheterization completed with her facing slitter, Dr. Jewell in [place] which revealed an EF of 55% with [...] by DIVINA DOSS on 11/27/2021 10:[address] [facility] HospitalMjwtklav00-10-5348 Note Date of Service 11/27/2021 postop day #4 Chief Complaint This is a 71-year-old female with past medical history of CAD status post PCI in 2016, hypothyroidism, hypertension, hyperlipidemia, irritable bowel syndrome, diabetes, history of DVT, history of tobacco use (quit 6 years ago), history of GI bleeds requiring blood transfusions, and obesity. She hada cardiac catheterization completed with her facing slitter, Dr. Jewell in [place] which revealed an EF of 55% with [...] nebs. nitroprusside drip has been weaned off. [facility] consulted for diabetic management. PT/OT consulted. [...] obtain urinalysis and urine culture, and consult [facility]. WBC 20.3 this morning. Discontinue A-line. [...] inflammatory process. [1] Assessment/Plan 1. CAD IN SOBOBA ARTERY s/p PCI 2015; s/p CABG x2 [...] by KAELYN DREW on 11/27/2021 09:[address] [facility] HospitalMwvgmtls89-11-9313 Note ORIGINAL EXAMINATION: TWO XRAY VIEWS OF [...] 11/27/2021 7:51:49 AM Ordering Provider: NAT DUNN [facility] HospitalBpuciqlf95-51-0759 Note ORIGINAL EXAMINATION: TWO XRAY VIEWS OF [...] Date: 11/27/2021 7:51:49 AM Ordering Provider: NAT [facility]09-11-2022 Nurse Progress note Patient had increased SOB and chest pain around 2100. EKG obtained showing SR with RBBB, unchanged from prior. Dr. Kohler notified or patient status, orders obtained from CXR and ABG. Results discussedwith Dr. Kohler, order for patient to go on bipap and recheck ABG in 1 hour. Patient placed on bipap-frequently orientation & mobility specialist-light, requesting to come off. Patient thoroughly [...] Avis Peters RN on 11/26/2021 10:[address] [facility] HospitalYmxnvefe59-42-4422 Note ORIGINAL EXAMINATION: ONE XRAY VIEW OF [...] Sign Date: 11/26/2021 9:26:00 PM Ordering Provider: [facility]09-11-2022 Note ORIGINAL EXAMINATION: ONE XRAY VIEW OF [...] Report By: Antwan Fountain Electronically signed By Antwna Fountain Dictated Date: 11/26/2021 9:24:20 PM Prelim Date: 11/26/2021 9:26:00 PM Sign Date: 11/26/2021 9:26:00 PM Ordering Provider: [facility]09-11-2022 Endocrinology Progress note Date of Service [...] qualifying data available. Assessment/Plan 1. CAD IN SOBOBA ARTERY s/p PCI 2015; s/p CABG x2 [...] She hada cardiac catheterization completed with her facing slitter, Dr. Jewell in [place] which revealed an EF of 55% with [...] A1c goals, glycemic targets. Would benefit from manager support and life skills educator evaluation. Appreciate their input. She is [...] by CRYSTAL PRESSLEY on 11/26/2021 04:[address] HospitalZhfeebfp35-94-6001 Urology Consult note Date of Service 11/26/21 Reason for Consultation Urinary retention Referring Physician Dr. Kohler History of Present Illness s/p 2v CABG by Dr. Philippe on 11/23/21. [place] was removed postop. Patient was voiding freely. She complained of dysuria. UA was negative for UTI. POR=697 cc. [place] catheter was inserted. Patient has [...] (2) No ventral hernias. Musculoskeletal: (1) Normal juvenile officer strength and tone bilaterally. Neurologic: (1) [...] Negative. (11/26/21 07:27:00) Assessment/Plan 1. CAD IN SOBOBA ARTERY s/p PCI 2016; s/p CABG x2 [...] List/Past Medical History Ongoing Bronchitis CAD IN SOBOBA ARTERY CARDIOGENIC SHOCK CHEST PAIN IN ADULT [...] mg= 1 tab(s), Oral, qDayAC Sore Throat [place], 1 spray(s), Topical, q1h, PRN Surfak Stool [...] by SAQIB FRASER MD on 11/26/2021 11:01 [facility]09-11-2022 Pulmonary Progress note Date of Service 11/26/2021 Chief Complaint 71-year-old female with past medical history of CAD status post PCI in 2016, hypothyroidism, hypertension, hyperlipidemia, irritable bowel syndrome, diabetes, history of DVT, history of tobacco use (quit 6 years ago), history of GI bleeds requiring blood transfusions, and obesity. She had a cardiac catheterization completed with her facing slitter, Dr. Jewell in [place] which revealed an EF of 55% with [...] qualifying data available. Assessment/Plan 1. CAD IN SOBOBA ARTERY s/p PCI 2015; s/p CABG x2 [...] DOLORES CARRILLO MD on 11/26/2021 10:[address] HospitalCjrvujni69-04-3389 Nurse Progress note Patient refusing to sit in chair for meals and refusing to ambulate per physician orders, despite education of expectations and complications from failure to do these. Digitally Signed by LARS Lopez on 11/26/2021 08:[address] HospitalWxgdkevu18-26-1552 Note Date of Service 11/26/2021 Chief Complaint POD #3 This is a 71-year-old female with past medical history of CAD status post PCI in 2016, hypothyroidism, hypertension, hyperlipidemia, irritable bowel syndrome, diabetes, history of DVT, history of tobacco use (quit 6 years ago), history of GI bleeds requiring blood transfusions, and obesity. She hada cardiac catheterization completed with her facing slitter, Dr. Jewell in [place] which revealed an EF of 55% with [...] nebs. nitroprusside drip has been weaned off. [facility] consulted for diabetic management. Currently on [...] obtain urinalysis and urine culture, and consult [facility]. WBC 20.3 this morning. Chest x-ray [...] qualifying data available. Assessment/Plan 1. CAD IN SOBOBA ARTERY s/p PCI 2015; s/p CABG x2 11/23/21, EF55% Normal sinus rhythm. Heart rate ranging 84-88. Blood pressures ranging 127/66- 147/65. No aspirin orstatin secondary to allergies. On carvedilol. Weight down 1.5 kg since yesterday. On Bumex/KCl. 2. Acute blood loss anemia H&H 10.3 and 31.7. 3. Diabetes mellitus Hgb A1c 9.7% Followed by [facility]. Glucoses ranging 94-209. On Humalog [...] by NAT DUNN on 11/26/2021 10:[address] [facility] HospitalJjvtmqcp67-80-3959 Note ORIGINAL EXAMINATION: ONE XRAY VIEW OF [...] 11/26/2021 6:50:40 AM Ordering Provider: NAT DUNN [facility] HospitalErpeskuh34-82-2008 Note ORIGINAL EXAMINATION: ONE XRAY VIEW OF [...] Date: 11/26/2021 6:50:40 AM Ordering Provider: NAT [facility]09-10-2022 Endocrinology Progress note Date of Service [...] qualifying data available. Assessment/Plan 1. CAD IN SOBOBA ARTERY s/p PCI 2016; s/p CABG x2 [...] She hada cardiac catheterization completed with her facing slitter, Dr. Jewell in [place] which revealed an EF of 55% with [...] A1c goals, glycemic targets. Would benefit from manager support and life skills educator evaluation. Appreciate their input. She is [...] by CRYSTAL PRESSLEY on 11/25/2021 05:[address] [facility] HospitalDprdaabs87-81-1626 Pulmonary Progress note Date of Service 11/25/2021 Chief Complaint 71-year-old female with past medical history of CAD status post PCI in 2016, hypothyroidism, hypertension, hyperlipidemia, irritable bowel syndrome, diabetes, history of DVT, history of tobacco use (quit 6 years ago), history of GI bleeds requiring blood transfusions, and obesity. She had a cardiac catheterization completed with her facing slitter, Dr. Jewell in [place] which revealed an EF of 55% with [...] qualifying data available. Assessment/Plan 1. CAD IN SOBOBA ARTERY s/p PCI 2015; s/p CABG x2 [...] DOLORES CARRILLO MD on 11/25/2021 10:[address] [id number] Note Date of Service 11/25/2021 Chief Complaint POD #2: This is a 71-year-old female with past medical history of CAD status post PCI in 2016, hypothyroidism, hypertension, hyperlipidemia, irritable bowel syndrome, diabetes, history of DVT, history of tobacco use (quit 6 years ago), history of GI bleeds requiring blood transfusions, and obesity. She hada cardiac catheterization completed with her facing slitter, Dr. Jewell in [place] which revealed an EF of 55% with [...] nebs. nitroprusside drip has been weaned off. [facility] consulted for diabetic management. Currently on [...] murmur, positive pericardial friction rub, heart rate -73, temporary a and V pacer wires intact; [...] post op day Assessment/Plan 1. CAD IN SOBOBA ARTERY s/p PCI 2015; s/p CABG x2 [...] Diabetes mellitus Hgb A1c 9.7% Followed by [facility]. Glucoses ranging 67-154. No longer [...] by NAT DUNN on 11/25/2021 10:[address] [facility] [facility] HospitalAbuqmzax77-91-3162 Note ORIGINAL EXAMINATION: ONE XRAY VIEW OF [...] Date: 11/25/2021 6:55:32 AM Ordering Provider: [facility]09-10-2022 Note ORIGINAL EXAMINATION: ONE XRAY [...] Date: 11/25/2021 6:55:32 AM Ordering Provider: NAT [facility]09-09-2022 Note ORIGINAL EXAMINATION: ONE XRAY [...] 11/24/2021 10:21:41 PM Ordering Provider: POLLY PHILIPPE [facility] HospitalZmowmyfd73-46-6534 Note Result type: Cardiothoracic Surgery Office Note Result date: November 21, 2021 14:15 EDT Result status: Auth (Verified) Result title: Office Visit Note Performed by: POLLY PHILIPPE MD on November 21, 2021 14:15 EDT Verified by: POLLY PHILIPPE MD on November 21, 2021 14:15 EDT Encounter info: [id number], CTS CAN, Office, 11/21/2021 - 11/21/2021 Chief [...] : No Shortness of Breath : Yes eJnnifer Padilla RN - 11/21/2021 13:29 EDT Skeletal [...] List/Past Medical History Ongoing Bronchitis CAD IN SOBOBA ARTERY CARDIOGENIC SHOCK CHEST PAIN IN ADULT [...] by CAROLINE Willingham on 11/24/2021 02:[address] [facility] [facility] HospitalHxemmxkr00-79-6768 Endocrinology Consult note Date of Service 11/24/21 [...] She hada cardiac catheterization completed with her facing slitter, Dr. Jewell in [place] which revealed an EF of 55% with [...] 103 mg/dL 82-115 Assessment/Plan 1. CAD IN SOBOBA ARTERY s/p PCI 2015; s/p CABG x2 [...] She hada cardiac catheterization completed with her facing slitter, Dr. Jewell in [place] which revealed an EF of 55% with [...] A1c goals, glycemic targets. Would benefit from manager support and life skills educator evaluation. Appreciate their input. She is [...] List/Past Medical History Ongoing Bronchitis CAD IN SOBOBA ARTERY CARDIOGENIC SHOCK CHEST PAIN IN ADULT [...] mg= 1 tab(s), Oral, qDayAC Sore Throat [place], 1 spray(s), Topical, q1h, PRN Surfak Stool [...] by CRYSTAL PRESSLEY on 11/24/2021 03:[address] [facility] HospitalVxxvsphq96-12-2261 Pulmonary Consult note Date of Service 11/24/2021 History of Present Illness 71-year-old female with past medical history of CAD status post PCI in 2016, hypothyroidism, hypertension, hyperlipidemia, irritable bowel syndrome, diabetes, history of DVT, history of tobacco use (quit 6 years ago), history of GI bleeds requiring blood transfusions, and obesity. She had a cardiac catheterization completed with her facing slitter, Dr. Jewell in [place] which revealed an EF of 55% with [...] left basilar consolidation. Assessment/Plan 1. CAD IN SOBOBA ARTERY s/p PCI 2015; s/p CABG x2 [...] List/Past Medical History Ongoing Bronchitis CAD IN SOBOBA ARTERY CARDIOGENIC SHOCK CHEST PAIN IN ADULT [...] mg= 1 tab(s), Oral, qDayAC Sore Throat [place], 1 spray(s), Topical, q1h, PRN Surfak Stool [...] CHRIS FRY MD on 11/24/2021 11:[address] [facility] HospitalOdeypwdl75-03-6250 Note Date of Service 11/24/2021 Chief Complaint POD #1 This is a 71-year-old female with past medical history of CAD status post PCI in 2016, hypothyroidism, hypertension, hyperlipidemia, irritable bowel syndrome, diabetes, history of DVT, history of tobacco use (quit 6 years ago), history of GI bleeds requiring blood transfusions, and obesity. She hada cardiac catheterization completed with her facing slitter, Dr. Jewell in [place] which revealed an EF of 55% with [...] pulmonary. nitroprusside drip has been weaned off. [facility] consulted for diabetic management. Currently on [...] qualifying data available. Assessment/Plan 1. CAD IN SOBOBA ARTERY s/p PCI 2016; s/p CABG x2 [...] insulin drip at 2 units/h. Will consult [facility]. 4. High blood pressure Blood [...] to 40% FiO2. Consult pulmonary Plan: Consult [facility] for diabetic management Consult PT [...] by NAT DUNN on 11/24/2021 08:[address] [facility] [facility] HospitalDfwffqbp38-37-4447 Note ORIGINAL EXAMINATION: ONE XRAY VIEW OF [...] Sign Date: 11/24/2021 10:21:41 PM Ordering Provider: [facility]09-08-2022 Note ORIGINAL EXAMINATION: ONE XRAY [...] Sign Date: 11/23/2021 1:40:56 PM Ordering Provider: [facility]09-08-2022 Note ORIGINAL EXAMINATION: ONE XRAY VIEW [...] Sign Date: 11/23/2021 1:40:56 PM Ordering Provider: [facility]09-08-2022 Anesthesiology Consult note Patient: FELICITAS [...] 15 mL, 3 Refill(s), Pharmacy: [facility] [address], 157.2, cm, 01/21/20 14:13:00EST, Height, kg, 01/21/20 14:13:00 EST, Dosing Weight nitroglycerin 0.4 mg sublingual tablet: 0.4 mg Dose = 1 tab(s), Sublingual, q5min, PRN as needed for chest pain, # 25 tab(s), 3 Refill(s), Pharmacy: [facility] [address], 157.5, cm, 08/31/19 16:27:00 EDT, Height, [...] (deep vein thrombosis) in / SNOMED CT 21569821 / Confirmed Bronchitis / SNOMED CT 38844323 / Confirmed CARDIOGENIC SHOCK / SNOMED CT 785035632 / Confirmed CHEST PAIN IN ADULT / SNOMED CT 85305478 / Confirmed CKD stage 3 / SNOMED CT 7823992166 / Confirmed CONGESTIVE HEART FAILURE, UNSPECIFIED CONGESTIVE HEART FAILURE CHRONICITY, UNSPECIFIED CONGESTIVE HEART FAILURE TYPE / SNOMED CT 93182537 / Confirmed Coronary artery disease / SNOMED CT 2642446153 / Confirmed CAD IN SOBOBA ARTERY / SNOMED CT 6600302771 / Confirmed Diabetes mellitus / SNOMED CT 721642738 / Confirmed Dysphagia / SNOMED CT 49907159 / Confirmed FATIGUE / SNOMED CT 034091599 / Confirmed Heart attack / SNOMED CT 44832284 / Confirmed High blood pressure / SNOMED CT 86501484 / Confirmed HISTORY OF ST ELEVATION MYOCARDIAL INFARCTION (STEMI) / SNOMED CT 4469582003 / Confirmed H/O irritable bowel syndrome / SNOMED CT 8720541745 / Confirmed Former tobacco use / SNOMED CT 9822074505 / Confirmed Hyperlipemia / SNOMED CT 96250152 / Confirmed Hypertension / SNOMED CT 85402001 / Confirmed Hypothyroid / SNOMED CT 270285049 / Confirmed IBS (irritable bowel syndrome) / SNOMED CT 41924433 / Confirmed Non-compliance / SNOMED CT 3203772013 / Confirmed OBESITY / SNOMED CT 9566274867 / Confirmed Perforated ulcer / SNOMED CT 157067583 / Confirmed Polyneuropathy / SNOMED CT 40260036 / Confirmed Type 2 diabetes mellitus uncontrolled / SNOMED CT 6651107003 / Confirmed Urinary tract infection / SNOMED CT 808320763 / Confirmed VITAMIN D DEFICIENCY / SNOMED CT 28620920 / Confirmed, Active Problems (33) Bronchitis CAD IN SOBOBA ARTERY CARDIOGENIC SHOCK CHEST PAIN IN ADULT [...] Histories Past Medical History: Active Perforated ulcer (131404797) DVT (deep vein thrombosis) in (89286258) High blood pressure (88432521) Bronchitis (86990508) Diabetes mellitus (151637687) Urinary tract infection (442176169) Coronary artery disease (3091676415) Former tobacco use (9574702119) Comments: 04/09/2016 EST 19:51 Summer Reddy RN quit 12/2015 Family History: Cardiac pacemaker Brother COPD - Chronic obstructive pulmonary disease Sister Diabetes mellitus Sister Heart disease Brother Stroke Father ([place]) Heart attack Mother ([place]) Cancer Sister Aneurysm Father ([place]) Heart attack 14-Sep-2015 02:33:12<$> Mother ([place]ana) Brother Procedure history: CABG (Coronary artery bypass grafting) planned (0771813888) on 11/23/2021 at 71 Years. Cardiac catheterization (76308519) on 09/05/2021 at 70 Years. Cardiac catheterisation (574364294) on 04/10/2016 at 65 Years. Comments: 04/10/2016 5:58 LARS Rodriguez possible PTCA Stent placement (604212044) on 01/03/2016 at 65 Years. History of hysterectomy ([id number]). Hysterectomy (312302368). H/O: tubal ligation (880732518). Histology tonsillectomy (844291818). Colonoscopy (824302965). EGD - Esophagogastroduodenoscopy (7016797106). Social History Social & Psychosocial Habits Alcohol [...] Person #2 We May Share PHI Katherine [phone] Designated Person #2 Relationship Other: sister Additional Designated Person Share PHI Kathya- daughter Privacy Restrictions Requested None Height 157.5 cm Admission Weight 102.3 kg Weight Method Actual [place] Body Weight 50.12 kg Body Mass Index [...] Loss No Safety Brochure Information Reviewed Yes [facility] Video Viewed No Barriers to Learning None evident Teaching Method Printed materials Teaching Evaluation Verbalizes/Nonverbally indicates understanding Preferred Written Language Bahraini Preferred Spoken Language Bahraini Information Given by Patient Patient's Current Physicians [...] Ready for Pickup . 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 HospitalDjskkbxr44-60-9346 SARS-CoV-2 (COVID-19) RNA SLOAN+probe Ql (Nph)Negative (11/17/21 12:00 PM)AO Auto Urine [id number] Evaluation note* Diagnosis Onset Date Resolution Status History of coronary artery bypass surgery November, acute Essential hypertension chron ic Hyperlipemia chronic Hypothyroidism chronic IBS (irritable bowel syndrome) chronic Type 2 diabetes mellitus chr onic History of coronary artery bypass surgery November, acute Atherosclerotic heart diseas e of [place] coronary artery without angina pectoris chronic Dyspnea on exertion chronic Essential hypertension chron ic Hyperlipemia chronic Presence of stent in coronary artery March, [facility] Work Phone: [phone]) 941-959301-01-2017 Evaluation note* Diagnosis Onset Date Resolution Status History of non-ST elevation myocardial infarction (NSTEMI) acute Essential hypertension chron ic Hyperlipemia chronic Hypothyroidism chronic Presence of stent in coronary artery March, chronic Type 2 diabetes mellitus chr [facility] Work Phone: 1(718) 155-535101-01-2017 Evaluation note* Diagnosis Onset Date Resolution Status History of non-ST elevation myocardial infarction (NSTEMI) acute Essential hypertension chron ic Hyperlipemia chronic Hypothyroidism chronic Presence of stent in coronary artery March, chronic Type 2 diabetes mellitus chr onic Dyspnea on exertion acute Atherosclerotic heart diseas e of [place] coronary artery without angina pectoris chronic Essential hypertension chron ic Hyperlipemia chronic Presence of stent in coronary artery March, [facility] Work Phone: 1(270) 981-198401-01-2017 Evaluation note* Diagnosis Onset Date Resolution Status History of non-ST elevation myocardial infarction (NSTEMI) acute Essential hypertension chron ic Hyperlipemia chronic Hypothyroidism chronic Presence of stent in coronary artery March, chronic Type 2 diabetes mellitus chr onic Atherosclerotic heart diseas e of [place] coronary artery without angina pectoris chronic Dyspnea on exertion chronic Essential hypertension chron ic Hyperlipemia chronic Presence of stent in coronary artery March, chronic Atherosclerotic heart diseas e of [place] coronary artery without angina pectoris chronic Dyspnea on exertion chronic Essential hypertension chron ic Hyperlipemia chronic Presence of stent in coronary artery March, [facility] Work Phone: Discharge summary Author Masoud Hahn-Shawn [facility] Note Date/Time September 07, 2024 3:16 am [facility] Medical Records Department [facility] [place] [address] Emergency Department Summary 09/07/24 MR#: [id number] Acct: [id number] Name: FELICITAS ALCANTARA Rep #:[id number] : [...] into the neck/jaw. States that her last ID was 7 years ago and cannot remember [...] intact Psych: Cooperative, appropriate mood and affect [facility] Medical History Morbid obesity with BMI of 40.0-44.9, adult History of left heart catheterization (LHC) (~09/05/21) Abnormal nuclear stress test Dyspnea on exertion Mass of lip Elevated WBC count History of DVT (deep vein thrombosis) Presence of stent in coronary artery (~04/10/16) History of non-ST elevation myocardial infarction (NSTEMI) Cardiogenic shock Type 2 diabetes mellitus Atherosclerotic heart disease of [place] coronary artery without angina pectoris Essential hypertension [...] this is because she switched to a facing slitter at [place]. She states she will no longer be going to this facing slitter instead has an appointment with Dr. Woo [...] 80.9 H Lymph % (Auto) 11.3 L Rice % (Auto) 5.1 Eos % (Auto) 1.6 [...] No evidence for acute abnormality. Reading Location: [place] [address] Discharge Plan Triage Chief Complaint: Chest Pain [...] MD [Primary Care Provider] - Print Language: Bahraini What to do if you have Problems For any increased pain, shortness of breath, bleeding, nausea or vomiting, chestpain, or any unexpected problems, contact your Primary Care Provider. Call [facility] ([phone]) or report to the closest Emergency Room. Call 911 if necessary. 09/07/24 0316 <Electronically signed by Masoud Ospina DO> Cosigner Signature (if applicable): CC: Dr. Harish Noel MD ~ Signed [facility] Work Phone: Evaluation + Plan note Future Appointments Appointment Date:11/21/2021 02:00:00 PM Scheduled Provider:POLLY PHILIPPE MD Location:[facility] Appointment Type:CTS [facility] Evaluation + Plan note Future Appointments Appointment Date:12/05/2021 10:00:00 AM Scheduled Provider:JUAN JUAREZ Location:[facility] Appointment Type:[facility] Post Op [facility] Evaluation + Plan note Future Appointments Appointment Date:12/27/2021 01:00:00 PM Scheduled Provider:JUAN JUAREZ Location:[facility] Appointment Type:CTS OV Post Op Follow Up Future Scheduled Tests Laboratory* Basic Metabolic Panel 12/01/21 Radiology* XR Chest 2 Views (PA & Lateral) 12/27/21 * XR Chest 2 Views (PA & Lateral) 12/19/[address] [facility] Evaluation note* Diagnosis Onset Date Resolution Status Atherosclerotic heart diseas e of [place] coronary artery without angina pectoris chronic Dyspnea on exertion chronic Essential hypertension chron ic Hyperlipemia chronic Presence of stent in coronary artery March, [facility] Work Phone: Evaluation note* Diagnosis Onset Date Resolution Status Atherosclerotic heart diseas e of [place] coronary artery without angina pectoris chronic Dyspnea on exertion chronic Essential hypertension chron ic Hyperlipemia chronic History of coronary artery bypass surgery November, 022 acute Atherosclerotic heart diseas e of [place] coronary artery without angina pectoris chronic Essential hypertension chron ic Hyperlipemia chronic Hypothyroidism chronic IBS (irritable bowel syndrome) chronic Presence of stent in coronary artery March, chronic Type 2 diabetes mellitus chr onic [facility] Work Phone: History and physical note* Rhea, CAROLINE Suggs: PERFORM, MODIFY Event Display: History and Physical Update Authored Date: [id number] [facility] Hospital course Narrative No data available for this section [facility] Hospital Discharge instructions No data available for this section [facility] Hospital Discharge instructions Additional Instructions Apply cream as prescribed and return for any worsening of symptoms.[facility] Work Phone: Progress note No data available for this section [facility] Summary Purpose Family History Relationship Condition [...] Will No April 25 12:33pm Power of Special Events Assistant No April 25, 2021 12:33pm Advance Directive Response Recorded Date/ Time Advance Directives No September 05 7:52am Living Will No September 05, 2021 7:52am Power of Special Events Assistant No September 05 2 7:52am Advance Directive Response Recorded Date/ Time Advance Directives No September 05 7:52am Living Will No September 08, 2021 12:28pm Power of Special Events Assistant No September 08 12:28pm Advance Directive Response Recorded Date/ Time Advance Directives No September 05 7:52am Living Will No November 05 2:17am Power of Special Events Assistant No November 05 2:17am Advance Directive Response Recorded Date/ Time Advance Directives No September 05 6:52am Living Will No January 21 3:59pm Power of Special Events Assistant No January 21, 2022 3:59pm Advance Directive Response Recorded Date/ Time Advance Directives No September 05 7:52am Living Will No January 21 4:59pm Power of Special Events Assistant No January 21, 2022 4:59pm Advance Directive Response Recorded Date/ Time Advance Directives No September 05 7:52am Living Will No July 28, 2022 1 :12pm Power of Special Events Assistant No July 28, 2022 1:12pm Advance Directive Response Recorded Date/ Time Living Will No January 14 1:05pm Do you have a Healthcare Power of Special Events Assistant? No January 15, 2024 1:05pm Living Will No April 29, 10:02pm Do you have a Healthcare Power of Special Events Assistant? No April 29, 2024 10:02pm Advance Directives No January 15, 2024 1:05pm Advance Directive Response Recorded Date/ Time Living Will No January 14 1:05pm Do you have a Healthcare Power of Special Events Assistant? No January 15, 2024 1:05pm Do you have a Healthcare Power of Special Events Assistant? No September 07, 2024 12:14am Advance Directives [...] Dyspnea on exertion Atherosclerotic heart disease of [place] coronary artery without angina pectoris Essential hypertension [...] Dyspnea on exertion Atherosclerotic heart disease of [place] coronary artery without angina pectoris Essential hypertension [...] 2 diabetes mellitus Atherosclerotic heart disease of [place] coronary artery without angina pectoris Dyspnea on exertion Essential hypertension Hyperlipemia Presence of stent in coronary artery Atherosclerotic heart disease of [place] coronary artery without angina pectoris Dyspnea on [...] 2 diabetes mellitus Atherosclerotic heart disease of [place] coronary artery without angina pectoris Dyspnea on exertion Essential hypertension Hyperlipemia Presence of stent in coronary artery Atherosclerotic heart disease of [place] coronary artery without angina pectoris Dyspnea on exertion Essential hypertension Hyperlipemia Presence of stent in coronary artery Chief Complaint SOB, HX OF CAD *MOOD ISPAW* SOB, HX OF CAD *MOODISPAW* DYSPNEA DYSPNEA Update H&P for cath 09/05 [facility] CORONA/ ABN STRESS CORONA/ ABN STRESS headache, chills CHEST PAIN Reason for Visit Atherosclerotic hear t disease of [place] coronary artery without angina pectoris Dyspnea on [...] artery bypass surgery Atherosclerotic heart disease of [place] coronary artery without angina pectoris Dyspnea on [...] artery bypass surgery Atherosclerotic heart disease of [place] coronary artery without angina pectoris Dyspnea on exertion Essential hypertension Hyperlipemia Presence of stent in coronary artery Chief Complaint 3 M FU 4 M FU Reason for Visit Atherosclerotic hear t disease of [place] coronary artery without angina pectoris Dyspnea on exertion Essential hypertension Hyperlipemia History of coronary artery bypass surgery Atherosclerotic heart disease of [place] coronary artery without angina pectoris Essential hypertension Hyperlipemia Hypothyroidism IBS (irritable bowel syndrome) Presence of stent in coronary artery Type 2 diabetes mellitus Chief Complaint 3 M FU 4 M FU HEADACHE, RASH Reason for Visit Atherosclerotic hear t disease of [place] coronary artery without angina pectoris Dyspnea on exertion Essential hypertension Hyperlipemia History of coronary artery bypass surgery Atherosclerotic heart disease of [place] coronary artery without angina pectoris Essential hypertension [...] 12: 52pm Atherosclerotic heart diseas e of [place] coronary artery without angina pectoris July 02, [...] 12: 52pm Atherosclerotic heart diseas e of [place] coronary artery without angina pectoris July 02, [...] and content) DATE CREATED AUTHOR 09/11/2017 [facility] DATE CREATED AUTHOR AUTHOR'S ORGANIZ ATION 12/28/2021 [facility] DATE CREATED AUTHOR AUTHOR'S ORGANIZ ATION 07/24/2024 [place] [facility] Goals (unrecognized section and content) Goals [...] P4 Physician - Cardiothoracic Surgery Address: Address: [address] [place] [address] [place] [address]- Name: HARISH NOEL MD Member Role: Primary Care Physician Address: Address: [address] [place] [address]- Name: FORREST JEWELL MD Address: Address: [address] [place] [address]- Care Team Related Persons Name: KATHERINE HOFFMANN Name: TIARRA, KATHYA Care Team Personnel Name: POLLY PHILIPPE MD Position: P4 Physician - Cardiothoracic Surgery Med Service: Active Provider Member Role: Cardiothoracic Surgeon Address: Address: [address] [place] [address] [place] [address]- Name: HARISH NOEL MD Member Role: Primary Care Physician Address: Address: [address] [place] [address]- Name: FORREST JEWELL MD Member Role: Carpet Cleaner Address: Address: [address] [place] [address]- Care Team Related Persons Name: CHRISTINE MOSS Name: KATHERINE HOFFMANN Name: TIARRA KATHYA Care Team Personnel Name: POLLY PHILIPPE MD Position: P4 Physician - Cardiothoracic Surgery Med Service: Active Provider Member Role: Cardiothoracic Surgeon Address: Address: [address] [place] [address] [place] [address]- Name: HARISH NOEL MD Member Role: Primary Care Physician Address: Address: [address] [place] [address]- Name: FORREST JEWELL MD Member Role: Carpet Cleaner Address: Address: [address] [place] [address]- Care Team Related Persons Name: CHRISTINE MOSS Name: KATHERINE HOFFMANN Name: TIARRA KATHYA Care Team Personnel Name: POLLY PHILIPPE MD Position: P4 Physician - Cardiothoracic Surgery Med Service: Active Provider Member Role: Cardiothoracic Surgeon Address: Address: [address] [place] [address] [place] [address]- [place] Name: HARISH NOEL MD Member Role: Primary Care Physician Address: Address: [address] [facility] [address] [place] [address]- Name: FORREST JEWELL MD Member Role: Carpet Cleaner Address: Address: [address] [place] [address]- [place] Care Team Related Persons Name: CHRISTINE [...] Provider, Referri ng Provider Active Rustam Francois GRINDER AND HONER OPERATOR AUTOMATIC, GRINDER [employer] HONER OPERATOR AUTOMATIC-C Attending Provider Active Team Status: Inactive Member Role Status Dates Dr. Harish Noel MD Primary Care Provider Active Rustam Francois GRINDER AND HONER OPERATOR AUTOMATIC, GRINDER AND HONER OPERATOR AUTOMATIC-C Attending Provider, Referring Pro vider Active Team Status: Inactive Member Role Status Dates Dr. Harish Noel MD Primary Care Provider Active Dr. Eb Parmar DO Emergency Provider Active Team Status: Active Member Role Status Dates Dr. Harish oNel MD Primary Care Provider Active Team Status: [...] BE BASED ON THE PRIMARY CLINICAL RECORDS. [facility] [employer] provides no warranty or guarantee of the accuracy or completeness of information in this document.
[2024-09-07] MEDS: Acetaminophen 325 MG Tablet 650 MG PO (05:49)
[2024-09-07] MEDS: Levothyroxine 112 MCG Tablet PO (05:49)
[2024-09-07] MEDS: Insulin Lispro 100 UNIT/ML INSULN.PEN SC ×2 (05:50→11:04)
[2024-09-07 06:11] LABS: Bedside Glucose 235 mg/dL (74-106)
[2024-09-07 06:25] LABS: Phosphorus 3.2 mg/dL (2.7-4.5)
[2024-09-07 07:21] LABS: Cholesterol 158 mg/dL (<=200); High Density Lipoprotein 57 mg/dL; Low Density Lipoprotein Calc. 75 mg/dL; Triglycerides 131 mg/dL; Very Low Density Lipoprotein 26 mg/dL (5-40); cholesterol:hdl ratio screen 2.79
--- NOTE | 2024-09-07 07:24 | PCM.CONS.C ---
Assessment & Plan Assessment/Plan (1) Chest pain: QUALIFIERS: Chest pain type: unspecified Qualified Code(s): R07.9 - Chest pain, unspecified PLAN: Patient presents with chest discomfort despite having a previously normal stress test. She is concerned that this may be an anginal equivalent. My recommendation be for us to proceed with a left heart catheterization and depending on the findings further recommendations will be made. Risk benefits alternatives have been explained to her she understands and agrees to proceed. (2) Essential hypertension: PLAN: She does have a history of hypertension her blood pressure appears to be under fair control at this time with the plan to be to continue the current medical therapy. (3) Dyspnea on exertion: PLAN: She does have dyspnea on exertion. This could be an anginal equivalent. Her last ejection fraction was noted to be normal. I would not make any major changes. (4) History of coronary artery bypass surgery: PLAN: She does have a history of coronary artery bypass surgery as noted above. HPI Consult Data Date of Consult: 09/07/24 HPI Narrative HPI Narrative: FELICITAS INIGUEZ, is a 73 F who presents to the emergency room with chest discomfort. She is a lady with a history of hypertension, hyperlipidemia, previous coronary disease with a left internal mammary artery to the left anterior descending artery, saphenous vein graft to the obtuse marginal branch status post left heart catheterization in August 2021. She has been having this recurrent chest discomfort and underwent a stress test earlier this year which did not demonstrate any evidence of ischemia. However she continues to have this chest discomfort and she presented to the emergency room and though her cardiac enzymes were abnormal EKG demonstrated sinus rhythm with a right bundle branch block it was determined that she should see cardiology for further evaluation and management. [facility] Medical History Morbid obesity with BMI of 40.0-44.9, adult History of left heart catheterization (LHC) (~09/05/21) Presence of stent in coronary artery (~04/10/16) Abnormal nuclear stress test Dyspnea on exertion Mass of lip Elevated WBC count History of DVT (deep vein thrombosis) History of non-ST elevation myocardial infarction (NSTEMI) Cardiogenic shock Type 2 diabetes mellitus Atherosclerotic heart disease of [place] coronary artery without angina pectoris Essential hypertension Carpal tunnel syndrome Hyperlipemia Hypertension Hypothyroidism History of pneumonia IBS (irritable bowel syndrome) Diabetes Home Medications ?Medication ?Instructions ?Recorded ?Last Taken ?Type blood-glucose sensor (Dexcom G7 #1 ea 01/20/24 Unknown Rx Sensor device) carvedilol 25 mg tablet 25 mg PO BID blood pressure #60 04/15/24 09/06/24 Rx tabs insulin NPH-regular 70-30 U-100 See Rx Instructions subcut 08/17/24 09/06/24 Rx insulin 100 unit/mL subcutaneous .COMPLEX #15 mL pen (Novolin 70-30 FlexPen U-100 Insulin) albuterol sulfate 90 mcg/actuation 2 puff inhalation Q6H PRN 09/07/24 09/06/24 History aerosol inhaler shortness of breath or wheezing levothyroxine 112 mcg tablet 112 mcg PO DAILY 09/07/24 09/05/24 History Allergy/AdvReac Type Severity Reaction Status Date / Time alogliptin Allergy Hives Verified 09/07/24 00:14 dulaglutide (From Trulicity) Allergy Hives Verified 09/07/24 00:14 glipizide Allergy Hives Verified 09/07/24 00:14 metformin Allergy Hives Verified 09/07/24 00:14 Penicillins (PCN) Allergy Hives Verified 09/07/24 00:14 aspirin AdvReac Severe blood Verified 09/07/24 00:14 clots canagliflozin (From Invokana) AdvReac Severe abdominal Verified 09/07/24 00:14 pain Family History Sister Breast cancer Mother Hypertension Heart disease Myocardial infarction, Onset Age: 61 Thyroid disorder Grandmother Arthritis Seizures Father CVA (cerebral vascular accident) Brother Heart disease Myocardial infarction Sister CAD (coronary artery disease) Surgical History (Updated 09/07/24 @ 07:[address] Cecilio Feliz MD) History of coronary artery bypass surgery (~11/23/21) Hx of heart bypass surgery History of excision of mass (~07/2020) Presence of coronary angioplasty implant and graft (~04/10/16) History of tubal ligation History of hysterectomy History of tonsillectomy Social History household members: none Smoking Status: Former smoker how long ago did patient quit smokin12/2015 alcohol intake: never substance use type: does not use caffeine: Yes Type: coffee Number of servings: 1 frequency: 1-2 times per week ROS Constitutional Constitutional: Denies fever(s) or weight loss Eyes Eyes: Reports systems reviewed and no addt'l complaints, except as documented ENT HEENT: Reports systems reviewed and no addt'l complaints, except as documented Cardiovascular Cardiovascular: Denies chest pain at rest, chest pain with activity, dyspnea at rest, dyspnea on exertion, edema, palpitations or paroxysmal nocturnal dyspnea Respiratory/Chest Respiratory/Chest: Denies dyspnea on exertion, productive cough, shortness of breath at rest or shortness of breath with exertion Gastrointestinal Gastrointestinal: Denies change in bowel habits, nausea, vomiting or weight changes Genitourinary Genitourinary: Denies difficulty urinating Musculoskeletal Musculoskeletal: Denies joint stiffness or muscle weakness Integumentary Integumentary: Denies lesions Neurologic Neurologic: Denies dizziness or syncope Psychiatric Psychiatric: Denies anxiety Endocrine Endocrinology: Denies excessive sweating or fatigue Hematologic/Lymphatic Hematologic/Lymphatic: Denies anemia Allergic/Immunologic Allergic/Immunologic: Denies seasonal rhinorrhea Physical Exam Const alert, oriented x3 and no apparent distress General Appearance: cooperative HEENT hearing grossly normal bilaterally Head and Scalp: atraumatic Eyes EOMs intact bilaterally Neck General: normal visual inspection Chest inspection of chest normal and palpation of chest normal Resp normal respiratory effort Auscultation: clear to auscultation bilaterally Cardio regular rate, regular rhythm, S1 normal heart sound and S2 normal heart sound Jugular Venous Distention: JVD GI normal to inspection, nondistended, normoactive bowel sounds Extremity normal capillary refill and no pedal edema Peripheral Pulses: Yes pulses 2+ throughout and femoral pulses present Skin no rashes or lesions noted Neuro oriented x3 and CN's II-XII intact bilaterally Psych Appearance: grossly normal and appropriate Risk Stratification Risk Stratification Applicable: Yes Age >/= 65: Yes >/= 3 CAD Risk Factors (HTN, HLD, DM, family hx of CAD, or current smoker): Yes Aspirin Use in the Past 7 Days: No Severe Angina (>/= episodes in 24 hours): No EKG ST Changes >/= 0.5mm: No Positive Cardiac Marker: No TORY Risk Stratification Score: 2 TORY % Risk: 8% Risk Objective Data Vital Signs: Vital Signs Temp Pulse Resp BP Pulse Ox O2 Del Method 98.0 F 84 18 157/81 H 95 Room Air 09/07/24 04:33 09/07/24 04:33 09/07/24 04:33 09/07/24 04:33 09/07/24 04:33 09/07/24 04:33 Oxygen Delivery Method Room Air Weight: 229 lb 8.019 oz Body Mass Index (BMI) 42.0 Intake & Output: Intake and Output for Last 24 Hours 09/05/24 09/06/24 09/07/24 23:59 23:59 23:59 Intake Total 0 / 0 Balance 0 / 0 Lab / Micro Data 09/07/24 00:15 09/07/24 00:15 Labs: Laboratory Results - last 24 hr 09/07/24 00:15: WBC 14.1 H, RBC 4.70, Hgb 13.9, Hct 43.2, MCV 91.9, MCH 29.6, MCHC 32.2, RDW Std Deviation 44.1 H, RDW Coeff of Eveline 13.1, Plt Count 272, MPV 11.6, Immature Gran % (Auto) 0.600, Neut % (Auto) 80.9 H, Lymph % (Auto) 11.3 L, [place] % (Auto) 5.1, Eos % (Auto) 1.6, Baso % (Auto) 0.5, Absolute Neuts (auto) 11.4 H, Absolute Lymphs (auto) 1.59, Nucleated RBC % 0, PT 13.5, INR 1.0, APTT 25.3, D-Dimer Quant (PE/DVT) < 0.27 L, Sodium 136, Potassium 4.5, Chloride 98, Carbon Dioxide 26.1, Anion Gap 12, BUN 13, Creatinine 0.86, Est GFR (MDRD) Non-Af 72, BUN/Creatinine Ratio 15.2, Glucose 232 H, Calcium 9.5, Troponin T High Sens 21 H, NT pro BNP II 619 09/07/24 01:54: POC Glucose 210 H 09/07/24 02:15: Magnesium 1.9, Troponin T Hi Sens 2 Hr 19 H 09/07/24 05:34: Phosphorus 3.2, Triglycerides 131, Cholesterol 158, LDL Cholesterol, Calc 75, VLDL Cholesterol 26, HDL Cholesterol 57, Cholesterol/HDL Ratio 2.79, TSH 2.760 09/07/24 05:49: POC Glucose 235 H Cardiology Labs/Tests 09/07/24 00:15: WBC 14.1 H, RBC 4.70, Hgb 13.9, Hct 43.2, MCV 91.9, MCH 29.6, MCHC 32.2, Plt Count 272, MPV 11.6, Immature Gran % (Auto) 0.600, Neut % (Auto) 80.9 H, Lymph % (Auto) 11.3 L, [place] % (Auto) 5.1, Eos % (Auto) 1.6, Baso % (Auto) 0.5, Absolute Neuts (auto) 11.4 H, Nucleated RBC % 0, PT 13.5, INR 1.0, APTT 25.3, D-Dimer Quant (PE/DVT) < 0.27 L, Sodium 136, Potassium 4.5, Chloride 98, Carbon Dioxide 26.1, Anion Gap 12, BUN 13, Creatinine 0.86, Est GFR (MDRD) Non-Af 72, BUN/Creatinine Ratio 15.2, Glucose 232 H, Calcium 9.5 09/07/24 02:15: Magnesium 1.9 09/07/24 05:34: Phosphorus 3.2, Triglycerides 131, Cholesterol 158, VLDL Cholesterol 26, HDL Cholesterol 57, Cholesterol/HDL Ratio 2.79 Rhythm: EKG: ECHO: Stress Test: Cardiac Cath: PCI: CT Surgery: Holter monitor: EPS: PPM: CXR: Chest CT Scan: Radiography Diagnostic Testing: Radiology Impression Chest X-Ray 09/07/24 01:00 IMPRESSION: No evidence for acute abnormality. Reading [facility] [address]
[2024-09-07] MEDS: Carvedilol 25 MG Tablet PO (08:12)
--- NOTE | 2024-09-07 09:53 | PCM.HOSP.N ---
Hospitalist Note Patient admitted earlier this morning for chest pain. Was seen by cardiology and plan is for left heart cath this morning. I saw the patient at bedside this morning. She was mildly fatigued appearing but otherwise sitting back comfortably in bed, in no acute distress. She denied any chest pain currently. No other acute concerns currently. Will follow-up left heart cath results once available. Full progress note to follow tomorrow.
[2024-09-07 11:35] LABS: Bedside Glucose 171 mg/dL (74-106)
--- NOTE | 2024-09-07 13:02 | DCINST_ITS ---
Discharge Instructions Diet Discharge Diet: No restrictions DC O2, CPAP, BIPAP needs Home O2 Discharge instructions: No Dressing / Incision Discharge Activity: No Restrictions Follow Up Care Test Results: Test results from this visit will be discussed in further detail at your follow- up appointment, if applicable. Discharge Plan Admission Admit Date/Time: 09/07/24 03:58 Primary Reason for Your Visit: chest pain Attending Provider: Hitesh Zimmer Primary Care Provider: Elsy Noel Consulting Providers: Geoffrey Fish; Livia Mo; Nany Murillo; Braulio Akers; Kelvin Scruggs; Cecilio Feliz; Adele Castañeda; Bear Woo; Delgado Cruz; Sergio Torres; Yahir Huff; Rustam Francois NP; Aminah Katz; Dangelo Sharp; Jimmy Lomeli Discharge Orders/Prescriptions Prescriptions: New amlodipine 5 mg Tablet 5 mg PO DAILY 30 Days Qty: 30 2RF Continued levothyroxine 112 mcg tablet 112 mcg PO DAILY albuterol sulfate 90 mcg/actuation HFA aerosol inhaler 2 puff inhalation Q6H PRN (Reason: shortness of breath or wheezing) (DME) Dexcom G7 Sensor Device See Rx Instructions .Route Qty: 1 10RF Rx Instructions: As directed carvedilol 25 mg tablet 25 mg PO BID Qty: 60 11RF Rx Instructions: must administer with a meal/food Novolin 70-30 FlexPen U-100 100 unit/mL (70-30) insulin pen See Rx Instructions subcut .COMPLEX Qty: 15 5RF Rx Instructions: subcutaneously; 28 units each AM (Breakfast) and 32 units each PM (Supper). Referrals / Follow Up: Elsy Noel MD [Primary Care Provider] - Disposition Disposition (needs filled in before D/C Order can be placed): Home, Self Care
--- NOTE | 2024-09-07 13:02 | PCM.DC.SUM ---
Providers Date of Admission: 09/07/24 Date of Discharge: 09/07/24 Primary Care Physician: Dr. Elsy Noel MD Consultations 09/07/24 04:26 Consult: Cardiology Routine Consulting Provider: [facility] Reason for Consult: Chest Pain; needs [facility]. EMERGENT Consult: No MD Notified: Yes Date Notified: 09/07/24 Time Notified: 04:02 Method of Notification: ED Physician Initiated Reason For Visit: CHEST PAIN Diagnosis Discharge Diagnosis (1) Chest pain: Status: Acute Code(s): R07.9 - Chest pain, unspecified Qualifiers: Chest pain type: unspecified Qualified Code(s): R07.9 - Chest pain, unspecified (2) Essential hypertension: Status: Chronic Code(s): I10 - Essential (primary) hypertension (3) Dyspnea on exertion: Status: Chronic Code(s): R06.00 - Dyspnea, unspecified (4) History of coronary artery bypass surgery: Status: Acute Code(s): Z95.1 - Presence of aortocoronary bypass graft Medications at Discharge Home Medications blood-glucose sensor (Zazoom G7 Sensor device) #1 ea 01/20/24 carvedilol 25 mg tablet 25 mg PO BID blood pressure #60 tabs 04/15/24 insulin NPH-regular 70-30 U-100 insulin 100 unit/mL subcutaneous pen (Novolin 70-30 FlexPen U-100 Insulin) See Rx Instructions subcut .COMPLEX diabetes #15 mL 08/17/24 albuterol sulfate 90 mcg/actuation aerosol inhaler 2 puff inhalation Q6H PRN shortness of breath or wheezing 09/07/24 amlodipine 5 mg tablet 5 mg PO DAILY 30 days #30 tabs 09/07/24 levothyroxine 112 mcg tablet 112 mcg PO DAILY thyroid 09/07/24 Hospital Course Operations None Procedures Cardiac catheterization, EKG and - (Chest x-ray) Summary of Care Provided Minutes Spent on Discharge: 35 Hospital Course: Patient is a 73-year-old female who presented to [facility] ED on 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 Short hospital course as noted below. Patient discharged home on the afternoon of 09/07 in stable condition. 1. Chest pain, ACS ruled out; history of CAD with stenting and CABG, hypertension, hyperlipidemia ? Cardiology followed. History of CAD with stenting back in 2017 and CABG x 2 in 2021. Presented with recurrent chest discomfort. Stress test in April was normal. Troponins normal and EKG with no ischemic changes on admit. Left heart cath showed patent ADAN to LAD and SVG to LCx and RCA as well as no regions of high-grade stenosis noted. Normal estimated EF. Recommendation was for optimization of medical therapy. Hypertensive during admission so for cardiology, continued on Coreg and started amlodipine 5 mg daily on discharge. Lipid panel with total cholesterol 158, LDL 75, HDL 57; patient okay to not initiate statin therapy on discharge. Outpatient follow-up with cardiology as needed. 2. Type 2 diabetes mellitus ? A1c 9.6% on admit. Will recommend optimization of home regimen by outpatient PCP but for now, we will continue home 70?30 NPH and regular insulin on discharge. 3. Hypothyroidism ? TSH normal. Continue home Synthroid. 4. Class III obesity ? BMI 42 on admit. Complicated hospital course, care and prognosis. Total clinical time spent by myself addressing the patient's medical issues, reviewing all the data, and collaborating with patient's care team: 35 minutes. Physical Exam Const alert, oriented x3 and no apparent distress Constitutional Narrative: Elderly female, class III obesity, mildly fatigued appearing but otherwise sitting back comfortably in bed, conversing normally, in no acute distress. General Appearance: cooperative and comfortable HEENT normocephalic, head/scalp atraumatic, hearing grossly normal bilaterally, nasal mucous membranes and turbinates normal and moist oral mucous membranes Eyes PERRL, EOMs intact bilaterally and conjunctivae normal Neck full ROM Chest inspection of chest normal Resp normal respiratory effort, normal air movement, no use of accessory muscles and clear to auscultation bilaterally Cardio regular rate, regular rhythm, no murmurs and peripheral pulses 2+ throughout GI normal to inspection, nondistended, normoactive bowel sounds, soft to palpation, non-tender and non-distended Back/Spine normal ROM Extremity normal to inspection, full ROM and no pedal edema Skin no rashes or lesions noted Psych mental status grossly normal Weight / BMI Weight Weight: 104.1 kg Body Mass Index (BMI) 42.0 ABG / Lab / Microbiology Data 09/07/24 00:15 09/07/24 00:15 Laboratory: Laboratory Results - last 24 hr 09/07/24 00:15: WBC 14.1 H, RBC 4.70, Hgb 13.9, Hct 43.2, MCV 91.9, MCH 29.6, MCHC 32.2, RDW Std Deviation 44.1 H, RDW Coeff of Eveline 13.1, Plt Count 272, MPV 11.6, Immature Gran % (Auto) 0.600, Neut % (Auto) 80.9 H, Lymph % (Auto) 11.3 L, [place] % (Auto) 5.1, Eos % (Auto) 1.6, Baso % (Auto) 0.5, Absolute Neuts (auto) 11.4 H, Absolute Lymphs (auto) 1.59, Nucleated RBC % 0, PT 13.5, INR 1.0, APTT 25.3, D-Dimer Quant (PE/DVT) < 0.27 L, Sodium 136, Potassium 4.5, Chloride 98, Carbon Dioxide 26.1, Anion Gap 12, BUN 13, Creatinine 0.86, Est GFR (MDRD) Non-Af 72, BUN/Creatinine Ratio 15.2, Glucose 232 H, Calcium 9.5, Troponin T High Sens 21 H, NT pro BNP II 619 09/07/24 01:54: POC Glucose 210 H 09/07/24 02:15: Magnesium 1.9, Troponin T Hi Sens 2 Hr 19 H 09/07/24 05:34: Phosphorus 3.2, Triglycerides 131, Cholesterol 158, LDL Cholesterol, Calc 75, VLDL Cholesterol 26, HDL Cholesterol 57, Cholesterol/HDL Ratio 2.79, TSH 2.760 09/07/24 05:49: POC Glucose 235 H 09/07/24 11:03: POC Glucose 171 H Radiography Diagnostic Testing: Radiology Impression Chest X-Ray 09/07/24 01:00 IMPRESSION: No evidence for acute abnormality. Reading Location: [facility] D/C Instructions DC O2, CPAP, BIPAP Needs Home O2 Discharge instructions: No Meaningful Use Info Meaningful Use Meaningful Use Diagnoses (Choose all that apply): None applicable Ischemic Stroke Statin Dosing Therapy Reference: STATIN DOSE THERAPY REFERENCE: * Patients > 75 years receive moderate or high dose statin therapy. * Patients 75 years or YOUNGER should receive HIGH intensity statin dose unless contraindicated. You will be required to document reason for non-treatment if statin daily dose does not meet guidelines. HIGH DOSE STATIN THERAPY DAILY Atorvastatin > than or = to 40 mg Rosuvastatin > than or = to 20 mg Amlodipine + Atorvastatin > than or = to 2.5/40 mg Ezetimibe + Simvastatin 10/80 mg Simvastatin 80mg Discharge Plan Admission Admit Date/Time: 09/07/24 03:58 Primary Reason for Your Visit: chest pain Attending Provider: Hitesh Zimmer Primary Care Provider: Elsy Noel Consulting Providers: Geoffrey Fish; Livia Mo; Nany Murillo; Braulio Akers; Kelvin Scruggs; Cecilio Feliz; Adele Castañeda; Bear Woo; Delgado Cruz; Sergio Torres; Yahir Huff; Rustam Francois NP; Aminah Katz PA; Dangelo Sharp; Jimmy Lomeli Discharge Orders/Prescriptions Prescriptions: New amlodipine 5 mg Tablet 5 mg PO DAILY 30 Days Qty: 30 2RF Continued levothyroxine 112 mcg tablet 112 mcg PO DAILY albuterol sulfate 90 mcg/actuation HFA aerosol inhaler 2 puff inhalation Q6H PRN (Reason: shortness of breath or wheezing) (DME) Dexcom G7 Sensor Device See Rx Instructions .Route Qty: 1 10RF Rx Instructions: As directed carvedilol 25 mg tablet 25 mg PO BID Qty: 60 11RF Rx Instructions: must administer with a meal/food Novolin 70-30 FlexPen U-100 100 unit/mL (70-30) insulin pen See Rx Instructions subcut .COMPLEX Qty: 15 5RF Rx Instructions: subcutaneously; 28 units each AM (Breakfast) and 32 units each PM (Supper). Referrals / Follow Up: Elsy Noel MD [Primary Care Provider] - Disposition Disposition (needs filled in before D/C Order can be placed): Home, Self Care Charges/Coding Visit Charges Inpatient E&M: 81209 Disch Hosp >30min
--- NOTE | 2024-09-07 13:31 | CASEMGMT ---
Patient has order for discharge. RN CM in to discuss needs at discharge. Patient denies needs or help at discharge. Patient had no further questions or concerns.
--- NOTE | 2024-09-07 14:37 | PHA.DC_ITS ---
Pharmacy [facility] Counseling Pharmacy Service has performed discharge medication reconciliation and counseling for this patient. The patient's discharge medication list was reviewed for discrepancies and discrepancies were resolved. The patient was counseled on the following discharge medications and changes in medications for homegoing were reviewed. The Reason for Use, instructions for use, and potential side effects were reviewed for all new medications. The patient's questions regarding all of their medications were answered. 1. Amlodipine 5 mg PO daily. The patient was able to verbally demonstrate an understanding of their discharge medications Medications at Discharge Home Medications blood-glucose sensor ([employer]anks G7 Sensor device) #1 ea 01/20/24 carvedilol 25 mg tablet 25 mg PO BID blood pressure #60 tabs 04/15/24 insulin NPH-regular 70-30 U-100 insulin 100 unit/mL subcutaneous pen (Novolin 70-30 FlexPen U-100 Insulin) See Rx Instructions subcut .COMPLEX diabetes #15 mL 08/17/24 albuterol sulfate 90 mcg/actuation aerosol inhaler 2 puff inhalation Q6H PRN shortness of breath or wheezing 09/07/24 amlodipine 5 mg tablet 5 mg PO DAILY 30 days #30 tabs 09/07/24 levothyroxine 112 mcg tablet 112 mcg PO DAILY thyroid 09/07/24
--- NOTE | 2024-10-26 09:45 | CL.D_ITS ---
Patient Name: FELICITAS INIGUEZ Study Date: 09/07/2024 Performing: Cecilio Feliz MD Ht: 62 inches 157.48 cm : 1950 Wt: 229.5 lbs 104.1 kg Age: 73 Gender: female BSA: 2.03 PROCEDURE(S) PERFORMED [id number]-([id number])LHC/COR/CABG CLINICAL PROFILE AND INDICATIONS Indications: Suspected CAD Heart Failure: None Stress/Imaging Stress/Image Study Performed: No CAD Presentations: Symptom unlikely to be ischemic. CONCLUSIONS Status post coronary bypass graft surgery with patent ADAN to the LAD and saphenous vein graft to the circumflex artery and a right coronary artery which is his dominant with no high-grade stenosis. RECOMMENDATIONS Medical therapy DESCRIPTION OF PROCEDURE The patient arrived to the procedure lab. The risks and benefits of the procedure as well as a full description of our services here and current unavailability of surgical backup were fully explained to the patient and/or their significant other prior to the catheterization. The Timeout was completed, verifying the correct patient and procedure. The patient's procedural site was prepped and draped in the usual fashion. Local anesthetic was given subcutaneously to right radial region with Lidocaine 2%. Using a modified Seldinger technique, arterial access was obtained via the right radial artery, a 6Fr sheath was inserted by Liza Temple Left internal mammary artery graft to the LAD selective angiography was performed in multiple views using a 5 Fr. IM catheter. Left Coronary Artery selective angiography was performed in multiple views using a 5 Fr. JL3.5 catheter. Right Coronary Artery selective angiography was then performed in multiple views using a 5 Fr. JR 5 catheter. Saphenous Vein graft to the OM 1 selective angiography was performed in multiple views using a 5 Fr. JR 5 catheter.The arterial sheath was pulled and a TR Band was applied for hemostasis CORONARY ANGIOGRAPHY DOMINANCE: Right Dominant LEFT HEART ASSESSMENT Left Ventricular Ejection Fraction: by Echo 55 % Normal Left Ventricular systolic function LEFT MAIN: Proximal 30% stenosis and distal 80% stenosis LEFT ANTERIOR DESCENDING ARTERY: Previously placed stent is patent and there is good flow to the 1st and 2nd diagonal branches and then a LAD has mild to moderate stenosis good competitive flow is noted CIRCUMFLEX ARTERY: First obtuse marginal branch is occluded in the second obtuse marginal branch is noted to be patent with mild disease present. RIGHT CORONARY ARTERY: Dominant right coronary artery with no high-grade stenosis noted. The vessel bifurcates to the posterior descending artery and posterolateral vessel. GRAFTS: ADAN graft to the Mid LAD is patent Saphenous Vein graft to the 1st OM is patent COMPLICATIONS No Complications PROCEDURE MEDICATIONS Versed 1 mg IV Fentanyl 50 mcg IV Versed 1 mg IV Oxygen: 2 L/min via nasal cannula Heparin given IA 09/07/2024 09:44:02 Verapamil 2.5mg, Ntg 200mcgs, 2000 units of Heparin given IA 09/07/2024 09:44:02 SUMMARY OF HEMODYNAMIC DATA Time AIR REST ECG 09:29:12 AO 126/52 (82) SA 09:49:49 AIR REST 10:31:09 Signed By Cecilio Feliz MD On 09/07/2024 10:35:10 Cecilio Feliz MD
== END 2024-09-07 13:10 | disposition home or self-care (01) ==
LOC: ED 03:14 → PCU 04:00
PROVIDERS: Admitting Provider Internal Medicine; Emergency Provider Surgery; PCP Internal Medicine; Visit Provider Hospitalist
DX: I25.119 Atherosclerotic heart disease of native coronary artery with unspecified angina pectoris (principal); E66.813 Obesity, class 3; Z68.41 Body mass index [BMI] 40.0-44.9, adult; E11.65 Type 2 diabetes mellitus with hyperglycemia; Z79.4 Long term (current) use of insulin; Z86.718 Personal history of other venous thrombosis and embolism; Z79.890 Hormone replacement therapy; E03.9 Hypothyroidism, unspecified; Z82.49 Family history of ischemic heart disease and other diseases of the circulatory system; E78.5 Hyperlipidemia, unspecified; D72.829 Elevated white blood cell count, unspecified; Z87.891 Personal history of nicotine dependence; Z95.5 Presence of coronary angioplasty implant and graft; I10 Essential (primary) hypertension; I45.10 Unspecified right bundle-branch block; Z95.1 Presence of aortocoronary bypass graft; Z79.899 Other long term (current) drug therapy; K58.9 Irritable bowel syndrome, unspecified; R06.09 Other forms of dyspnea; I25.2 Old myocardial infarction
CPT/HCPCS: 36415; 71046; 80048; 80061; 82962; 83735; 83880; 84100; 84443; 84484; 85025; 85379; 85610; 85730; 93005; 93455; 99152; 99153; 99221; 99285; C1894; Q9967; A4216; C1769; G0378

== ENCOUNTER → 2024-12-14 | Outpatient (CLI) | payer MEDICARE, MEDICAID, SELFPAY | END | disposition home or self-care (01) | LOC: PSN 12:27 | PROVIDERS: PCP Internal Medicine; Referring Provider Internal Medicine; Visit Provider Internal Medicine | DX: R06.00 Dyspnea, unspecified (principal); E66.9 Obesity, unspecified | CPT/HCPCS: 94060; 94726; 94729 ==

== ENCOUNTER → 2024-12-15 | Outpatient (CLI) | payer MEDICARE, MEDICAID, SELFPAY ==
--- NOTE | 2024-12-15 14:22 | CT_ITS ---
PROCEDURE: CT chest with contrast. 12/15/2024 REASON FOR EXAM: DYSPNEA ON EXERTION TECHNIQUE: Procedure Code: CTCHW Modality: CT Procedure: CHEST WITH CONTRAST Coronal and Sagittal reconstruction series were provided. CONTRAST: Isovue 370 VOLUME: 95 mL One or more dose reduction techniques were used (e.g., Automated exposure control, adjustment of the mA and/or kV according to patient size, use of iterative reconstruction technique). RADIATION DOSE SUMMARY: CTDlvol: 33.28 mGy DLP: 670.49 mGycm COMPARISON: None FINDINGS: Lower neck:The thyroid gland is normal. There is no supraclavicular lymphadenopathy. Mediastinum:There are few reactive mediastinal lymph nodes. Index node, a right paratracheal node, measuring 12 x 7 mm. Heart and thoracic aorta:The heart is enlarged. There is no pericardial effusion. There is moderate calcific vascular disease of the coronary arteries and thoracic aorta. Status post CABG surgery. Esophagus:Normal. Upper Abdomen:There is calcific vascular disease of the visualized abdominal aorta. There is an 11 x 9 mm low-density nodule in the left adrenal gland consistent with an adenoma. Chest wall:The soft tissues of the chest wall appear unremarkable. There is no axillary lymphadenopathy. Status post median sternotomy. There is [id number] multilevel degenerative disc disease of the thoracic and upper lumbar spine. Lungs, airways and pleura: There is mild upper lobe predominant centrilobular emphysema. There is dependent atelectasis in both lungs. There are no pulmonary nodules or masses. There are no pleural effusions. CT/Chest WITH Contrast IMPRESSION: 1. Emphysema. 2. There are no pulmonary nodules or masses. 3. Calcific vascular disease status post CABG surgery. 4. Other findings as noted. Reading Location: [place] [id number]
[2024-12-15 14:52] LABS: CREATININE FINGERSTICK < 1.0 mg/dL (0.55-1.02); EGFR FINGERSTICK > 60.0000 mL/min (>60)
== END | disposition home or self-care (01) ==
LOC: CT 14:20
PROVIDERS: PCP Internal Medicine; Referring Provider Internal Medicine; Visit Provider Internal Medicine
DX: R06.00 Dyspnea, unspecified (principal); E66.9 Obesity, unspecified
CPT/HCPCS: 71260; Q9967